=== PATIENT | male | born 1940 | race Caucasian/White ===

== ENCOUNTER 2016-02-18 11:23 | Inpatient (IN) | payer OTHER ==
[2016-02-18 11:50] VITALS: BMI 44.4
--- NOTE | 2016-02-18 12:11 | PDOC ---
History of Present Illness - General History Source: Patient, Spouse Exam Limitations: No Limitations - History of Present Illness Initial Comments: 02/18/16 12:57 <Yulisa Harvey - Last Filed: 02/18/16 14:10> - General History Source: Patient Exam Limitations: No Limitations - History of Present Illness Initial Comments: The patient is a 75-year-old man, accompanied by , with a significant past medical history of hypertension, hypercholesterolemia, coronary artery disease s /p stents x2, COPD (on 2L at home) and CHF who presents to the emergency department via walk-in with complaints of increasing shortness of breath for 3 days. No fever, chills, generalized weakness, cough. Patient is ambulatory with a cane and denies any dyspnea on exertion. Patient reports he his 2L O2 helps alleviate his shortness of breath. No chest pain, headache,dizziness, lightheadedness, back pain. Patient also reports chronic leg swelling and pain. Patient notes that his swelling has been increasing. He admits his Lasix dosage has increased from 40 mg q.d to 40 mg q.a.m followed by an additional 20 mg at night. Patient admits non compliance with his nightly dose , as he tends to forget. Patient also reports foot pain. He is unable to describe the nature of the pain but states it is associated with his wound. Patients pain is exacerbated when walking. Patient reported compliance to the wound care center, as he went today and his dressing was changed. As per patients , she expresses concern as the patient's urine was noted to be dark brown last night. Patient denies any urinary symptoms. He denies abdominal pain,nausea, vomiting, diarrhea, hematochezia, melena. Allergies: Penicillin. Past Surgical History: Stent placement x2 (04/2015) Social History: Former smoker. He denies ETOH and recreational drug use. Primary Care Physician: Dr. Alejandro Sotomayor Shipping And Receiving Operator: Dr. Alejandro Sotomayor Quarry Boss: Dr. Herminio Ferrer <Rodrigo Paul - Last Filed: 02/18/16 18:50> - General Chief Complaint: Wound Infection Stated Complaint: WOUND CHECK,COPD Time Seen by Provider: 02/18/16 12:01 Past History <Yulisa Harvey - Last Filed: 02/18/16 14:10> - Past Medical History Anemia: Yes Asthma: No Cancer: No Cardiac Disorders: Yes (CAD - 2 cardiac stents placed 03/26/2015) CVA: No COPD: Yes (resp failure) CHF: Yes Dementia: No Diabetes: (unknown) GI Disorders: Yes (H/O mild GI bleed) Disorders: No HTN: Yes Hypercholesterolemia: Yes Liver Disease: No Seizures: No Thyroid Disease: No - Surgical History Abdominal Surgery: No Appendectomy: No Cardiac Surgery: Yes (2 cardiac stents) Cholecystectomy: No Lung Surgery: No Neurologic Surgery: No Orthopedic Surgery: No - Immunization History Immunization Up to Date: Yes - Psycho/Social/Smoking Cessation Hx Anxiety: No Suicidal Ideation: No Smoking Status: Yes Smoking History: Former smoker Have you smoked in the past 12 months: No Number of Cigarettes Smoked Daily: 0 If you are a former smoker, when did you quit?: 6 years Information on smoking cessation initiated: No 'Breaking Loose' booklet given: 04/01/15 Hx Alcohol Use: No Drug/Substance Use Hx: No Substance Use Type: None Hx Substance Use Treatment: No <Rodrigo Paul - Last Filed: 02/18/16 18:50> - Past Medical History Allergies/Adverse Reactions: Allergies Allergy/AdvReac Type Severity Reaction Status Date / Time Penicillins Allergy Verified 02/18/16 11:45 Home Medications: Ambulatory Orders Acetaminophen W/ Codeine #3 [Tylenol # 3 -] 1 tab PO Q6H PRN 02/18/16 Albuterol 0.083% Nebulizer Soni [Ventolin 0.083% Nebulizer Soln -] 1 amp NEB ASDIR PRN 02/18/16 Aspirin [Ecotrin] 81 mg PO DAILY 02/18/16 Duloxetine HCl 20 mg PO DAILY 02/18/16 Furosemide 20 mg PO HS 02/18/16 Furosemide 40 mg PO DAILY 02/18/16 Hydralazine HCl [Apresoline -] 50 mg PO HS 02/18/16 Prasugrel HCl [Effient] 10 mg PO DAILY 02/18/16 Prednisone 5 mg PO DAILY 02/18/16 Pregabalin [Lyrica] 25 mg PO DAILY 02/18/16 Review of Systems - Review of Systems Able to Perform ROS?: Yes Comments:: 02/18/16 12:57 <Yulisa Harvey - Last Filed: 02/18/16 14:10> - Review of Systems Able to Perform ROS?: Yes Comments:: CONSTITUTIONAL: No reported: Fever, Chills, Diaphoresis, Generalized Weakness, Malaise, Loss of Appetite HEENT: No reported: Rhinorrhea, Nasal Congestion, Throat Pain, Throat Swelling, Difficulty Swallowing, Mouth Swelling, Ear Pain, Eye Pain, Visual Changes CARDIOVASCULAR: No reported: Chest Pain, Syncope, Palpitations, Irregular Heart Rate, Lightheadedness, Peripheral Edema RESPIRATORY: Reported: +Shortness Of Breath. No reported: Cough, SOB with Exertion, Orthopnea , Wheezing, Stridor, Hemoptysis GASTROINTESTINAL: No reported: Abdominal pain, Abdominal Distension, Nausea, Vomiting, Diarrhea, Constipation, Melena, Hematochezia GENITOURINARY: Reported: +Dark Urine. No reported: Dysuria, Frequency, Urgency, Hesitancy, Flank Pain, Genital Pain MUSCULOSKELETAL: Reported: +Bialteral foot pain. +Bialtealy lower extremity swelling. No reported : Myalgia,Joint Swelling, Back pain, Neck Pain SKIN: Reported: +Bilateral Leg Wounds. No reported: Rash, Itching, Pallor HEMEATOLOGIC/IMMUNOLOGIC: No reported: Easy Bleeding, Easy Bruising, Lymphadenopathy, Frequent infections ENDOCRINE: No reported: Unexplained Weight Gain, Unexplained Weight Loss, Heat Intolerance , Cold Intolerance NEUROLOGIC: No reported: Headache, Focal Weakness, Paresthesias, Vertigo, Lightheadedness, Unsteady Gait, Seizure, Mental Status Changes, Incontinence PSYCHIATRIC: No reported: Anxiety, Depression <Rodrigo Paul - Last Filed: 02/18/16 18:50> *Physical Exam - Vital Signs Last Vital Signs Temp Pulse Resp BP Pulse Ox 97.6 F 74 18 146/70 92 L 02/18/16 11:46 02/18/16 11:46 02/18/16 11:46 02/18/16 11:46 02/18/16 11:46 - Physical Exam Comments: 02/18/16 12:57 <Yulisa Harvey - Last Filed: 02/18/16 14:10> - Vital Signs Last Vital Signs Temp Pulse Resp BP Pulse Ox 97.6 F 74 18 146/70 92 L 02/18/16 11:46 02/18/16 11:46 02/18/16 11:46 02/18/16 11:46 02/18/16 11:46 - Physical Exam Comments: GENERAL: The patient is awake, alert, and fully oriented, Nontoxic - in no acute distress. HEAD: Normocephalic, atraumatic. EYES: extraocular movements intact, sclera anicteric, conjunctiva clear. ENT: Normal voice. Dry mucous membranes. NECK: Normal range of motion, supple LUNGS: Distant breath sounds, mild wheezing bilaterally. No rhonchi, no rales. HEART: Regular rate and rhythm, without murmur, rub or gallop. ABDOMEN: Soft, nontender, normoactive bowel sounds. No guarding, no rebound.No CVA tenderness EXTREMITIES: Normal range of motion. b/l lymphedema with chronic changes, bilaterally in the lower extremities. no open wounds, but clear discharge b/l. NEUROLOGICAL: No facial assymetry, Normal speech, moving all 4 extremities spontnaouelys PSYCH: Normal mood, normal affect. SKIN: +No open wounds on the bilateral lower extremities. Warm, Dry, normal turgor <Rodrigo Paul - Last Filed: 02/18/16 18:50> Heart Score/ECG Review - ECG Impressions Comment:: 02/18/16 18:49 Twelve-lead EKG was performed and reviewed by me. There is normal sinus rhythm with a normal rate. Rate of 80 Incomplete right bundle-branch block <Rodrigo Paul - Last Filed: 02/18/16 18:50> ED Treatment Course - LABORATORY CBC & Chemistry Diagram: 02/18/16 13:00 02/18/16 13:00 - RADIOLOGY Radiograph Interpretation: 02/18/16 13:07 RAD/CHEST X-RAY PORTABLE Reviewed by Dr. Rodrigo Paul Interpreted by Dr. Alejandro Yanes IMPRESSION: Cardiomegaly partially accentuated by technique. No acute intrathoracic abnormality seen. <Yulisa Harvey - Last Filed: 02/18/16 14:10> - LABORATORY CBC & Chemistry Diagram: 02/18/16 13:00 02/18/16 13:00 <Rodrigo Paul - Last Filed: 02/18/16 18:50> Medical Decision Making - Medical Decision Making 02/18/16 14:[address] Alejandro Sotomayor. Immediate response. Case was discussed. He wished that Patient Support Representative, Dr. Melvin Johnson to be contact for consultation and patient to be admitted under Hospitalist Services. 02/18/16 14:11 <Yulisa Harvey - Last Filed: 02/18/16 14:10> - Medical Decision Making 02/18/16 12:23 75y M hx of COPD (2L of NC at home at [facility]), chronic lymphedema, hl, chronic leg ulcers sent to ED for evaluation of dark colored urine and increasing sob, leg swelling, the past few days without associated f/c, cp, incrased sputum production or increased o2 requirement on exam the pts pulm exam reveals mild diffuse wheezing leg c/w chronic lypmhedema, mild clear d/c no signs of infection will r/o renal pathology will ck ekg to r/ acs cxr to r/o pna will ck gas will give duoneb will ck ua, A portion of this note was documented by scribe services under my direction. I have reviewed the details of the note, within reason, and agree with the documentation with the following case summary and management plan written by me 02/18/16 14:17 pt in shi K elevated to 6.5 - will give hyperk coctail, including calcium case /dw dr. vasquez requests admission to hospitalist will admit to telemetry case d/w dr. johnson agree with mangement will place lilly - will hydrate as pt appears dry will continue to monitor 02/18/16 15:43 pt has increased wob - pt placed on Bipap will continue nebs will uprade the pt to ICU due to concern for fluid overload and brittle respiratory status case d/w OSTEOPATHIC MEDICINE TEACHER Bhanu - will admit under dr. del rio service. Case discussed in detail with admitting physician including history, physical exam and ancillary studies. Admitting physician has assumed care for the patient, will follow all pending diagnostics and will complete the evaluation and treatment. CRITICAL CARE DOCUMENTATION: I spent ~35 minutes of Critical Care time, excluding separately billable procedures, involving high complexity decision making to assess, manipulate and support vital system function(s) to treat single or multiple vital organ system failure and/or to prevent further life threatening deterioration of the patient' s condition. <Rodrigo Paul - Last Filed: 02/18/16 18:50> *DC/Admit/Observation/Transfer - Attestations Scribe Attestion: 02/18/16 12:57 Documentation prepared by Yulisa Havrey, acting as medical office representative for Rodrigo Paul MD, MD/DO. <Yulisa Harvey - Last Filed: 02/18/16 14:10> - Discharge Dispostion Admit: Yes <Rodrigo Paul - Last Filed: 02/18/16 18:50> Diagnosis at time of Disposition: COPD exacerbation, Hyperkalemia Acute kidney failure Qualifiers: Acute renal failure type: unspecified Qualified Code(s): N17.9 - Acute kidney failure, unspecified - Discharge Dispostion Condition at time of disposition: Critical - Referrals
[2016-02-18] MEDS ORDERED: ALBUTEROL SO4 2.5/IPRATROPIUM 0.5 INH SOL 3 ML VIAL.NEB. NEB ONE ×3 (12:19→14:13)
[2016-02-18 13:00] LABS: VENOUS BLOOD GAS HCO3 21.7 meq/L (22-29)
[2016-02-18 13:01] LABS: VENOUS PH 7.17 (7.31-7.41)
[2016-02-18 13:20] LABS: MCH 24.5 pg (25.7-33.7); MCHC 30.6 g/dl (32.0-35.9); MEAN PLT VOLUME 7.5 fl (7.5-11.1); PLATELET COUNT 235 K/MM3 (134-434); RDW 16.8 % (11.9-15.9); WHITE BLOOD COUNT 6.5 K/mm3 (4.0-10.0)
[2016-02-18 13:33] LABS: INR 1.12 (0.82-1.09); PROTHROMBIN TIME (PATIENT) 12.3 SEC (9.4-12.5)
[2016-02-18 13:35] LABS: ALBUMIN 3.2 g/dl (3.4-5.0); ANION GAP 9 (8-16); BILIRUBIN,TOTAL 0.2 mg/dL (0.2-1.0); CALCIUM 7.3 mg/dL (8.5-10.1); CO2 26 mmol/L (21-32); CREATININE 7.2 mg/dL (0.7-1.3); GLUCOSE,RANDOM 105 mg/dL (74-106); SGOT/AST 16 U/L (15-37); SGPT/ALT 22 U/L (12-78); TOT PROT 6.3 g/dl (6.4-8.2)
[2016-02-18] MEDS ORDERED: methylPREDNISolone NA SUCC 125 MG/2 ML VIAL IVPB ONE (13:37)
[2016-02-18 13:38] LABS: ALK PHOS 90 U/L (45-117); TROPONIN I < 0.02 ng/ml (0.015-0.045)
[2016-02-18] MEDS ORDERED: methylPREDNISolone NA SUCC 125 MG/2 ML VIAL ONE (13:46)
[2016-02-18] MEDS ORDERED: INSULIN REGULAR HUMAN 100 UNITS/ML *VIAL IVPUSH ONE ×2 (14:06→21:10)
[2016-02-18] MEDS ORDERED: SODIUM POLYSTYRENE SULFONATE 15 GM/60 ML BOTTLE PO ONE ×2 (14:06→21:12)
[2016-02-18] MEDS ORDERED: DEXTROSE 50%-WATER 50 ML VIAL IVPUSH ONE ×2 (14:06→21:11)
[2016-02-18] MEDS ORDERED: CALCIUM GLUCONATE 10% - 1,000 MG/10 ML VIAL IVPUSH ONE (14:07)
[2016-02-18] MEDS ORDERED: SODIUM BICARBONATE 4.2% 5 MEQ/10 ML DISP.SYRIN IVPUSH ONE ×2 (14:07→14:49)
[2016-02-18] MEDS ORDERED: SODIUM CHLORIDE 1,000 ML IV ONE (14:17)
[2016-02-18] MEDS ORDERED: CALCIUM CHLORIDE 1 GM/10 ML *DISP.SYRIN ONE ×2 (14:49→21:10)
[2016-02-18] MEDS ORDERED: DEXTROSE 50%-WATER 50 ML DISP.SYRIN ONE ×2 (14:49→21:09)
--- NOTE | 2016-02-18 14:49 | EKG ---
Test Reason : Blood Pressure : / mmHG Vent. Rate : 080 BPM Atrial Rate : 083 BPM P-R Int : 226 ms QRS Dur : 116 ms QT Int : 410 ms P-R-T Axes : 073 066 065 degrees QTc Int : 472 ms POOR DATA QUALITY, INTERPRETATION MAY BE ADVERSELY AFFECTED NORMAL SINUS RHYTHM WITH 1ST DEGREE A-V BLOCK INCOMPLETE RIGHT BUNDLE BRANCH BLOCK Confirmed by KELSEA MELENDEZ MD ([id number]) on 02/18/2016 2:49:24 PM Referred By: Overread By: KELSEA MELENDEZ MD
[2016-02-18] MEDS ORDERED: INSULIN REGULAR HUMAN 100 UNITS/ML *VIAL ONE (14:50)
[2016-02-18] MEDS ORDERED: SODIUM POLYSTYRENE SULFONATE 15 GM/60 ML BOTTLE ONE (14:50)
[2016-02-18] MEDS ORDERED: CALCIUM GLUCONATE 10% - 1,000 MG/10 ML VIAL ONE (14:51)
--- NOTE | 2016-02-18 15:20 | CONSULT ---
Consult - text type - Consultation Consultation Note: Renal Consult for Hyperkalemia and Acute Renal Failure This is a 75 year old Gentleman with PMhx of CKD Stage 3 (baseline Cr 1.9), Hx of Nephrolithiasis, Hypertension, COPD, CHF, PVD, Chronic LE lymph edema who was sent into the ED from wound care for increased lethargy and decreased urination for several days. Pt states that for the last 4->5 days he has been only voding a little bit and it was dark urine. Denies any hematuria. Denies any flank pain. No NSAID use. No recent contrast exposure. Was on diuretics at home. reports about 80lb weight gain over the past year that she atributes to water weight. No recent Abx use. Did not start any new medications recently. No [place], confusion, lethargry, nasuea, vomiting, diarrhea. Poor po intake for the past week. Denies any dysuria. In the ED noted to have BUN/Cr of 117/7.2 and K of 6.5 PMhx: as above Allergies: PCN Family Hx: NC Social Hx: Former smoker ROS: As per HPI, all other pertinent ros negative Home Meds: Medication Instructions Recorded Albuterol Sulfate Inhaler - 1 - 2 inh PO Q4H PRN 07/16/15 [Ventolin HFA Inhaler -] Aspirin [Ecotrin] 81 mg PO DAILY 07/16/15 Atorvastatin Ca [Lipitor] 80 mg PO HS 07/16/15 Budesonide/Formeterol Fumarate 2 inh PO DAILY 07/16/15 [SYMBICORT 160/4.5mcg -] Prednisone 10 mg PO DAILY 07/16/15 Tamsulosin HCl 0.4 mg PO DAILY 07/16/15 Torsemide 20 mg PO BID 07/16/15 Albuterol 0.083% Nebulizer Soni 1 amp NEB Q4H PRN #0 amp 07/20/15 [Ventolin 0.083% Nebulizer Soln -] Prasugrel Hydrochloride [Effient -] 10 mg PO DAILY tab 07/20/15 Tiotropium [place] [Spiriva] 1 puff IH DAILY inh 07/20/15 Cymbalta 20 mg PO DAILY 09/24/15 Torsemide [Demadex -] 40 mg PO DAILY 10/22/15 Acetaminophen W/ Codeine #3 1 tab PO Q6H #60 tablet MDD 4 01/28/16 [Tylenol # 3 -] Vital Signs Temperature 97.6 F 02/18/16 11:46 Pulse Rate 74 02/18/16 11:46 Respiratory Rate 18 02/18/16 11:46 Blood Pressure 146/70 02/18/16 11:46 O2 Sat by Pulse Oximetry (%) 92 L 02/18/16 11:46 Intake & Output 02/15/16 02/16/16 02/17/16 02/18/16 23:59 23:59 23:59 23:59 Weight 310 lb Gen: Mild distress from sob. awake and alert HEENT: NC/AT, Dry MM, No JVD, Neck supple CVS: RRR No M/R Lungs: Course BS lung bases Abd: Soft NT + Mild distension Ext: > 3+ LE Lymph edema, no cyanosis or clubbing Neuro: AAOx3, no focal defects : Mild Abd distension ? Bladder CBC, BMP 02/18/16 13:00 02/18/16 13:00 Laboratory Tests 02/18/16 02/18/16 13:00 13:00 VBG pH 7.17 L* D POC VBG pCO2 62.1 H* POC VBG pO2 41.0 H D Calcium 7.3 L Albumin 3.2 L A/P 75 year old Gentleman with PMhx of CKD Stage 3 (baseline Cr 1.9), Hx of Nephrolithiasis, Hypertension, COPD, CHF, PVD, Chronic LE lymph edema who was sent into the ED from wound care for increased lethargy and decreased urination for several days with KARLOS with BUN/Cr of 115/7.2 and K of 6.5 #Acute Renal Failure on CKD Etiology -Volume depletion vs. Normotensive ATN (diuretic -> intravascular depeltion leading to renal hypoperfusion) vs. Obstrutive Nephropathy (at level of prostate vs. Nephrolithiasis) vs. AIN Clifford for strict I and O Check UA, UPCR, Urine Eiosophils Give 1L NS bolous No overt uremia or metabolic acidosis to warrant emergent HD at this time Will manage hyperkalemia medically Dose all meds for Cr Cl less then 10 avoid contrast and nsaids will monitor renal function and k closely -> if not improvement in next 6-12 hours may need emergent HD hold diuretics for now #Hyperkalemia from Renal failure EKG showed 1st degree aV block -> need urgent management Medical management in the ED (Insulin/D50/Calcium Carbonate/Kayexalate) Give isotonic IVF Repeat K in 4 hours Tele monitoring #Anemia No acute indication for transfusion Check iron studies Check stool occult blood #Resp Acidosis/COPD ph converted from vbg is 7.22, CO2 is 57 Bipap for now repeat abg to monitor for improvement Pt with appropriate metabolic compensation for acute resp acidosis #Hx of HF no evidence of decompensation at this time monitor volume status with IVF Thank you Will follow Melvin Johnson DO
--- NOTE | 2016-02-18 16:31 | CONSULT ---
Consult Consult Specialty:: PULM/CCM Referred by:: ER Reason for Consultation:: Acute Respiratory Distress / Hyperkalemia - History of Present Illness Chief Complaint: SOB / Lethargy History of Present Illness: 75 F, O2 dependent COPD, OSAS intermittently on CPAP (settings are not known), Mobid obesity, CKD Stage 3 (baseline Cr 1.9), Nephrolithiasis, Hypertension, CHF , PVD, Chronic LE lymph edema, and PCI. Patient reports increasing Lasix dose last week. HI PO intake has also been very poor. Apparently his urine has been very concentrated. Apparently he has been more lethargic over the past few days. Presents to the ER with lethargy and acute respiratory distress requiring NIPPV. Noted to be in ARF with a K+ of 6.5. Non-specific EKG changes are noted. - History Source History Provided By: Patient, Medical Record Limitations to Obtaining History: Clinical Condition - Past Medical History GRANULAR OPERATOR: Yes: Peripheral Neuropathy Cardio/Vascular: Yes: CAD, CHF (diastolic), HTN, Hyperlipdemia Pulmonary: Yes: COPD, O2 Dependent, Sleep Apnea Renal/: Yes: Renal Inusuff, Renal Calculi Dermatology: Yes: Cellulitis (Cellulitis lower extremiites during patient's hospitalization in February) Additional Medical History: Obesity - Past Surgical History Past Surgical History: Yes: None - Alcohol/Substance Use Hx Alcohol Use: No History of Substance Use: reports: None - Smoking History Smoking history: Former smoker Have you smoked in the past 12 months: No Aproximately how many cigarettes per day: 0 If you are a former smoker, when did you quit?: 6 years - Social History ADL: Independent 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 History of Recent Travel: No Home Medications - Allergies Allergies/Adverse Reactions: Allergies Allergy/AdvReac Type Severity Reaction Status Date / Time Penicillins Allergy Verified 02/18/16 11:45 - Home Medications Home Medications: Ambulatory Orders Acetaminophen W/ Codeine #3 [Tylenol # 3 -] 1 tab PO Q6H PRN 02/18/16 Albuterol 0.083% Nebulizer Soni [Ventolin 0.083% Nebulizer Soln -] 1 amp NEB ASDIR PRN 02/18/16 Aspirin [Ecotrin] 81 mg PO DAILY 02/18/16 Duloxetine HCl 20 mg PO DAILY 02/18/16 Furosemide 20 mg PO HS 02/18/16 Furosemide 40 mg PO DAILY 02/18/16 Hydralazine HCl [Apresoline -] 50 mg PO HS 02/18/16 Prasugrel HCl [Effient] 10 mg PO DAILY 02/18/16 Prednisone 5 mg PO DAILY 02/18/16 Pregabalin [Lyrica] 25 mg PO DAILY 02/18/16 Family Disease History - Family Disease History Family Disease History: Other: Father (parkinson's disease) Review of Systems - Review of Systems Constitutional: reports: Lethargy, Loss of Appetite, Malaise, Weakness. denies : Chills, Fever, Night Sweats, Unintentional Wgt. Loss Eyes: reports: No Symptoms HENT: reports: No Symptoms Neck: reports: No Symptoms Cardiovascular: reports: Edema, Shortness of Breath. denies: Chest Pain, Palpitations Respiratory: reports: Cough, SOB, SOB on Exertion. denies: Hemoptysis, Orthopnea, Wheezing Gastrointestinal: reports: No Symptoms Genitourinary: denies: Dysuria, Flank Pain, Hematuria Breasts: reports: No Symptoms Reported Musculoskeletal: denies: Back Pain, Extremity Pain, Muscle Pain, Muscle Cramps, Muscle Weakness Integumentary: reports: Change in Color, Erythema, Rash, Wound Neurological: reports: Confusion. denies: Change in Speech, Dizziness, Parasthesia, Seizure, Syncope Endocrine: reports: No Symptoms Hematology/Lymphatic: reports: No Symptoms Psychiatric: reports: No Symptoms Physical Exam Vital Sings: Vital Signs Temperature 97.3 F L 02/18/16 15:57 Pulse Rate 92 H 02/18/16 15:57 Respiratory Rate 28 H 02/18/16 15:57 Blood Pressure 164/66 02/18/16 15:57 O2 Sat by Pulse Oximetry (%) 100 02/18/16 15:57 Constitutional: Yes: Mild Distress, Obese, Other (On NIPPV ) Eyes: Yes: Conjunctiva Clear, EOM Intact HENT: Yes: Atraumatic, Normocephalic Neck: Yes: Supple, Trachea Midline Cardiovascular: Yes: Tachycardia Respiratory: Yes: Cough, Diminished, Hyperresonant, Rhonchi, Tachypnea. No: Rales, Stridor, Wheezes ...Inspection: Yes: WNL ...Clubbing: No Gastrointestinal: Yes: Normal Bowel Sounds, Soft, Abdomen, Obese Renal/: Yes: Clifford Present Musculoskeletal: Yes: WNL Extremities: Yes: Erythema Peripheral Pulses WNL: Yes Integumentary: Yes: Erythema, Skin Tear, Venous Stasis Changes Neurological: Yes: Alert, Oriented ...Motor Strength: WNL Psychiatric: Yes: WNL, Alert, Oriented Imaging - Results Chest X-ray: Report Reviewed, Image Reviewed (Cardiomegaly / No acute process) Problem List - Problems (1) Acute kidney failure Code(s): N17.9 - ACUTE KIDNEY FAILURE, UNSPECIFIED Qualifiers: Acute renal failure type: unspecified Qualified Code(s): N17.9 - Acute kidney failure, unspecified (2) COPD exacerbation Code(s): J44.1 - CHRONIC OBSTRUCTIVE PULMONARY DISEASE W (ACUTE) EXACERBATION (3) Hyperkalemia Code(s): E87.5 - HYPERKALEMIA (4) Anxiety and depression Code(s): F41.9 - ANXIETY DISORDER, UNSPECIFIED F32.9 - MAJOR DEPRESSIVE DISORDER, SINGLE EPISODE, UNSPECIFIED (5) Aortic aneurysm, intrathoracic Code(s): I71.2 - THORACIC AORTIC ANEURYSM, WITHOUT RUPTURE (6) Arteriosclerotic heart disease (ASHD) Code(s): I25.10 - ATHSCL HEART DISEASE OF [place] CORONARY ARTERY W/O ANG PCTRS (7) CRI (chronic renal insufficiency) Code(s): N18.9 - CHRONIC KIDNEY DISEASE, UNSPECIFIED (8) Chronic kidney disease (CKD) Code(s): N18.9 - CHRONIC KIDNEY DISEASE, UNSPECIFIED Qualifiers: Chronic kidney disease stage: unspecified stage Qualified Code(s): N18.9 - Chronic kidney disease, unspecified (9) Diabetes Code(s): E11.9 - TYPE 2 DIABETES MELLITUS WITHOUT COMPLICATIONS Qualifiers: Diabetes mellitus type: type 2 Diabetes mellitus complication status: with kidney complications Diabetes mellitus complication detail: with chronic kidney disease (10) Diastolic CHF Code(s): I50.30 - UNSPECIFIED DIASTOLIC (CONGESTIVE) HEART FAILURE (11) History of coronary artery stent placement Code(s): Z95.5 - PRESENCE OF CORONARY ANGIOPLASTY IMPLANT AND GRAFT (12) Hyperlipidemia Code(s): E78.5 - HYPERLIPIDEMIA, UNSPECIFIED (13) Hypertension Code(s): I10 - ESSENTIAL (PRIMARY) HYPERTENSION (14) Non-alcoholic fatty liver disease Code(s): K76.0 - FATTY (CHANGE OF) LIVER, NOT ELSEWHERE CLASSIFIED (15) Noncompliance with CPAP treatment Code(s): Z91.14 - PATIENT'S OTHER NONCOMPLIANCE WITH MEDICATION REGIMEN (16) Obesities, morbid Code(s): E66.01 - MORBID (SEVERE) OBESITY DUE TO EXCESS CALORIES Qualifiers: Obesity type: with alveolar hypoventilation Qualified Code(s): E66.2 - Morbid (severe) obesity with alveolar hypoventilation Assessment/Plan PLAN: NIPPV support Aspiration precautions Treatment for acute Hyperkalemia has been given in the ER -> follow BMP Can use Albuterol to assist in intracellular K+ shift if needed IVF Clifford inserted Strict I&O BD TX Short course of medrol Follow CXR ICU monitoring Thank you. Dr Vasquez CCTime 35"
--- NOTE | 2016-02-18 17:04 | PN ---
Physical Exam: SUBJECTIVE: Patient seen and examined by me at bedside. Patient in respiratory distress with labored breathing on BIPAP. Patient's at bedside and explained that the patient has several medical conditions and has not followed up with his Certified Nursing Attendant since June 2015. She states patient has barely urinated in the last two days and when he urinates it was very dark. She also states he's been more lethargic and fatigued. Otherwise, patient denies chest pain, palpitations, nausea, vomiting. OBJECTIVE: Vital Signs Period Temp Pulse Resp BP Sys/Carmona Pulse Ox Last 24 Hr 97.3 F 92 28 164/66 99-100 GENERAL: The patient is awake, alert, fully oriented and in mild respiratory distress. NECK: Trachea midline, full range of motion, supple. LUNGS: Tachypneic on BIPAP. Rhonchi throughout lung bases with diminished breath sounds. HEART: Regular rate and rhythm, S1, S2 without murmur, rub or gallop. ABDOMEN: Obese, soft, nontender, mildly distended, normoactive bowel sounds, no guarding, no rebound, no hepatosplenomegaly, no masses. EXTREMITIES: 3+ bilateral lower extremity lymphedema with erythema. NEUROLOGICAL: Lethargic oriented and responds to verbal commands. Active Medications Generic Name Dose Route Start Last Admin Trade Name Freq PRN Reason Stop Dose Admin Albuterol Sulfate 1 amp 02/18/16 16:41 Ventolin 0.083% Nebulizer Soln - NEB Q4H PRN SHORT OF BREATH/WHEEZING Arformoterol Tartrate 1 amp 02/18/16 22:00 Brovana (Restricted To Pulmonology/Resp) - NEB BID LESLEE Methylprednisolone Sodium Succinate 60 mg 02/18/16 18:00 Solu-Medrol - IVPB Q8H-IV LESLEE ASSESSMENT/PLAN: Patient is a 75 year old male with a PMHx of CKD, Hypertension, COPD, CHF, PVD, Chronic LE lymph edema who presents for increased lethargy, oliguria, wound infection and sepsis. Patient admitted to the ICU for acute respiratory distress requiring NIPPV. Pulmonology Acute respiratory failure -Likely from Sepsis secondary to LE infection -Continue NIPPV support -Solumedrol 60mg IV Q8H -Continue Brovana BID -Continue Nebulizer Q4H PRN -Acute respiratory acidosis with metabolic compensation -CXR and ABG in the morning Acute on Chronic COPD -Continue Brovana -Continue Nebulizer Q4H PRN -CXR and ABG in the morning Nephrology Acute on Chronic Kidney Disease -Possibly from volume depletion vs. ATN vs. Obstructive Nephropathy -BUN/Cr 115/7.2 -Sodium Bicarbonate given in ED -Avoid nephrotoxic drugs -Monitor I&O's -Check urine lytes/UA -Trend BMP -Nephrology consult appreciated Hyperkalemia likely from Renal Failure -Found to have level of 6.5 -Non-specific EKG's. Normal Sinus Rhythm at 80BPM -ED administered Insulin/D50/Calcium Carbonate/Kayexalate -IV NS given in ED -Repeat BMP Cardiology Diastolic CHF -No signs of Acute CHF -Given a Bolus of IVNS -Light hydration if needed -Continue to monitor -Chest X-rays F/E/N -On no fluids -Hyperkalemia -NPO Visit type - Emergency Visit Emergency Visit: Yes ED Registration Date: 02/18/16 Care time: The patient presented to the Emergency Department on the above date and was hospitalized for further evaluation of their emergent condition. - New Patient This patient is new to me today: Yes Date on this admission: 02/21/16 - Critical Care Critical Care patient: Yes Total Critical Care Time (in minutes): 45 Critical Care Statement: The care of this patient involved high complexity decision making to prevent further life threatening deterioration of the patient 's condition and/or to evalute & treat vital organ system(s) failure or risk of failure.
--- NOTE | 2016-02-18 17:44 | PN ---
Progress Note (short form) - Note Progress Note: 75 year old male with history COPD, renal insufficiency, ASHD S/P stents, morbid obesity, JOY (refused sleep study)- uses BIPAP only infrequently- chronic edema; now admitted with increased lethargy and renal failure. Pt last seen a month ago in office. At that time lab work ordered but apparently never done. On exam pt lethargic on Bipap. Chest decreased breath sounds. Edema Imp: Renal failure- obstructive? volume depletion? ATN?-probably a combination of these Resp Failure COPD Hyperkalemia Pt being transferred to ICU. Case discussed with patient's .
[2016-02-18 18:06] LABS: ARTERIAL BLD GAS O2 SATURATION 96.3 % (90-98.9); ARTERIAL BLOOD GAS BASE EXCESS -8.7 meq/l (-2-2)
[2016-02-18 18:07] LABS: ALLENS TEST POSITIVE; ART PUNCT SITE RIGHT RADIAL; LPM/O2% 40; MECH. VENT. YES; PT. ON O2? YES; TYPE OF O2 BIPAP
[2016-02-18 18:08] LABS: ARTERIAL BLOOD GAS pH 7.14 (7.35-7.45); VENT RATE 18; VT/PRESS EPAP 5
--- NOTE | 2016-02-18 18:25 | PN ---
Physical Exam: SUBJECTIVE: Patient seen and examined OBJECTIVE: Vital Signs Period Temp Pulse Resp BP Sys/[place]ona Pulse Ox Last 24 Hr 97.3 F 92 28 164/66 98-100 GENERAL: The patient is awake, alert, and fully oriented, in no acute distress. HEAD: Normal with no signs of trauma. EYES: PERRL, extraocular movements intact, sclera anicteric, conjunctiva clear. No ptosis. ENT: Ears normal, nares patent, oropharynx clear without exudates, moist mucous membranes. NECK: Trachea midline, full range of motion, supple. LUNGS: Breath sounds equal, clear to auscultation bilaterally, no wheezes, no crackles, no accessory muscle use. HEART: Regular rate and rhythm, S1, S2 without murmur, rub or gallop. ABDOMEN: Soft, nontender, nondistended, normoactive bowel sounds, no guarding, no rebound, no hepatosplenomegaly, no masses. EXTREMITIES: 2+ pulses, warm, well-perfused, no edema. NEUROLOGICAL: Cranial nerves II through XII grossly intact. Normal speech, gait not observed. PSYCH: Normal mood, normal affect. SKIN: Warm, dry, normal turgor, no rashes or lesions noted Laboratory Results - last 24 hr 02/18/16 17:35 Puncture Site Right radial ABG pH 7.14 L* D ABG pCO2 at Pt Temp 61.6 H* D ABG pO2 at Pt Temp 110.0 H D ABG HCO3 20.0 L ABG O2 Sat (Measured) 96.3 ABG O2 Content 12.0 L ABG Base Excess -8.7 L Issac Test Positive O2 Delivery Device Bipap Oxygen Flow Rate 40 Vent Mode Ipap 10 Vent Rate 18 Mechanical Rate Yes Pressure Support Vent Epap 5 Active Medications Generic Name Dose Route Start Last Admin Trade Name Freq PRN Reason Stop Dose Admin Albuterol Sulfate 1 amp 02/18/16 16:41 Ventolin 0.083% Nebulizer Soln - NEB Q4H PRN SHORT OF BREATH/WHEEZING Arformoterol Tartrate 1 amp 02/18/16 22:00 Brovana (Restricted To Pulmonology/Resp) - NEB BID LESLEE Methylprednisolone Sodium Succinate 60 mg 02/18/16 18:00 Solu-Medrol - IVPB Q8H-IV LESLEE ASSESSMENT/PLAN:
[2016-02-18] MEDS: methylPREDNISolone NA SUCC 40 MG/1 ML VIAL IVPB SCH (18:29)
--- NOTE | 2016-02-18 18:29 | HP ---
CHIEF COMPLAINT: Lethargy and decreased UOP PCP: Dr. Sotomayor HISTORY OF PRESENT ILLNESS: 75 year-old man with a PMH of HTN, PVD, COPD, CKD (baseline Cr 1.9), nephrolithiasis, and chronic LE lymphedema. The patient was directed [facility] the [facility] for increased lethargy and decreased urination for several days. Patient stated that for the last 4 to 5 days he has been only voiding a little and it was dark urine. He denied hematuria and flank pain. He denied NSAID use or recent contrast exposure. He was on diuretics at home although his reported an 80lb weight gain over the past year which she attributes to water weight. Patient has had poor PO intake x 1 week. No n/v/d/ c. No f/s/c. ER course was notable for: (1) BUN/Cr 117/7.2; K 6.5 Recent Travel: No PAST MEDICAL HISTORY: Hypertension Peripheral vascular disease COPD Chronic kidney disease Neprholithiasis Chronic lower extremity lymphedema PAST SURGICAL HISTORY: None reported Social History: Smoking: former Alcohol: no Drugs: no Family History: non contributory Allergies Penicillins Allergy (Verified 02/18/16 11:45) HOME MEDICATIONS: Medication Instructions Recorded Acetaminophen W/ Codeine #3 1 tab PO Q6H PRN 02/18/16 [Tylenol # 3 -] Albuterol 0.083% Nebulizer Soni 1 amp NEB ASDIR PRN 02/18/16 [Ventolin 0.083% Nebulizer Soln -] Aspirin [Ecotrin] 81 mg PO DAILY 02/18/16 Duloxetine HCl 20 mg PO DAILY 02/18/16 Furosemide 20 mg PO HS 02/18/16 Furosemide 40 mg PO DAILY 02/18/16 Hydralazine HCl [Apresoline -] 50 mg PO HS 02/18/16 Prasugrel HCl [Effient] 10 mg PO DAILY 02/18/16 Prednisone 5 mg PO DAILY 02/18/16 Pregabalin [Lyrica] 25 mg PO DAILY 02/18/16 REVIEW OF SYSTEMS: Unable to obtain due to severity of illness PHYSICAL EXAMINATION SUBJECTIVE: Feels SOB Vital Signs - 24 hr 02/18/16 02/18/16 02/18/16 15:34 15:57 16:25 Temperature 97.3 F L Pulse Rate 92 H Respiratory 28 H Rate Blood Pressure 164/66 O2 Sat by Pulse 99 100 98 Oximetry (%) GENERAL: Somnolent but arousable, answers questions, on BIPAP HEAD: Normal with no signs of trauma. EYES: Pupils equal, round and reactive to light, extraocular movements intact, sclera anicteric, conjunctiva clear. No ptosis. EARS, NOSE, THROAT: Ears normal, nares patent, oropharynx clear without exudates. Moist mucous membranes. NECK: Normal range of motion, supple without lymphadenopathy, JVD, or masses. LUNGS: Anterior breath sounds CTA; no wheezes, and no crackles. No accessory muscle use. HEART: Regular rate and rhythm, normal S1 and S2 without murmur, rub or gallop. ABDOMEN: Soft, obese, nontender, not distended, normoactive bowel sounds MUSCULOSKELETAL: ROM not tested; no bony deformities or tenderness. No CVA tenderness. UPPER EXTREMITIES: 2+ pulses, warm, well-perfused. No cyanosis. No clubbing. Cap refill <2 seconds. No peripheral edema. LOWER EXTREMITIES: 2+ pulses, warm, well-perfused. 4+ edema, cobblestone appearance; erythematous; on RLE well-circumscribed area of induration just below the knee NEUROLOGICAL: Cranial nerves II-XII intact. Normal speech. Gait not observed. Laboratory Results - last 24 hr 02/18/16 17:35 Puncture Site Right radial ABG pH 7.14 L* D ABG pCO2 at Pt Temp 61.6 H* D ABG pO2 at Pt Temp 110.0 H D ABG HCO3 20.0 L ABG O2 Sat (Measured) 96.3 ABG O2 Content 12.0 L ABG Base Excess -8.7 L Issac Test Positive O2 Delivery Device Bipap Oxygen Flow Rate 40 Vent Mode Ipap 10 Vent Rate 18 Mechanical Rate Yes Pressure Support Vent Epap 5 ASSESSMENT/PLAN: 75 year-old man with a PMH of HTN, PVD, COPD, CKD (baseline Cr 1.9), nephrolithiasis, and chronic LE lymphedema. Admitted in acute renal failure. Acute on chronic renal failure --Cr 7.2, baseline 1.8 --anuric --IV fluids --may require HD --renal consult Hyperkalemia --K 6.5, given calcium, kayexelate, insulin, sodium bicarb in ED --repeat bmp Sepsis secondary to bilateral lower extremity cellulitis --although not charted, rectal temp 95 in this provider's presence, Darinel Mitcheller placed; RR 28; HR >90; meets sepsis criteria --likely secondary to LE cellulitis --CT LE ordered; physical exam suggestive of collection anterior LLE? --start aztreonam and clinda --ID following Hypertension --hold anti-hypertensives Peripheral vascular disease Hypercarbic respiratory failure --ABG 7/14/61/110/20/96% on 40% --on BIPAP COPD --solumedrol --albuterol nebs --Brovana Visit type - Emergency Visit Emergency Visit: Yes ED Registration Date: 02/18/16 Care time: The patient presented to the Emergency Department on the above date and was hospitalized for further evaluation of their emergent condition. - New Patient This patient is new to me today: Yes Date on this admission: 02/20/16 - Critical Care Critical Care patient: Yes Total Critical Care Time (in minutes): 60 Critical Care Statement: The care of this patient involved high complexity decision making to prevent further life threatening deterioration of the patient 's condition and/or to evalute & treat vital organ system(s) failure or risk of failure.
[2016-02-18] MEDS ORDERED: VANCOMYCIN 1,250 MG in DEXTROSE 5%-WATER - 250 ML IVPB ONE (19:06)
[2016-02-18] MEDS ORDERED: SODIUM CHLORIDE 1,000 ML IV STA (19:10)
[2016-02-18] MEDS ORDERED: SODIUM CHLORIDE 1,000 ML IV SCH (19:15)
[2016-02-18] MEDS ORDERED: PIPERACILLIN/TAZOB 3.375 GM/50 ML PRE-DOCKED IVPB SCH (19:15)
[2016-02-18 19:28] LABS: ARTERIAL BLD GAS O2 SATURATION 98.5 % (90-98.9); ARTERIAL BLOOD GAS BASE EXCESS -9.3 meq/l (-2-2); ARTERIAL BLOOD GAS HCO3 18.9 meq/L (22-26)
[2016-02-18 19:29] LABS: ALLENS TEST POSITIVE; ART PUNCT SITE LEFT RADIAL; LPM/O2% 40; PT. ON O2? YES; TYPE OF O2 BIPAP; VENT RATE 18; VT/PRESS EPAP 5
[2016-02-18 19:30] LABS: ARTERIAL BLOOD GAS pH 7.15 (7.35-7.45)
[2016-02-18] MEDS ORDERED: LEVOFLOXACIN 750 MG IVPB 150 ML IVPB ONE (20:00)
[2016-02-18] MEDS ORDERED: MEROPENEM 500 MG VIAL (RESTRICTED TO ID) IVPB SCH (20:00)
[2016-02-18 20:01] LABS: MCH 24.3 pg (25.7-33.7); MCHC 30.5 g/dl (32.0-35.9); MEAN CELL VOLUME 79.8 fl (80-96); MEAN PLT VOLUME 7.6 fl (7.5-11.1); PLATELET COUNT 248 K/MM3 (134-434); RDW 16.9 % (11.9-15.9)
[2016-02-18] MEDS: HEPARIN NA (PORCINE) 5,000 UNITS/ML 1ML VIAL SQ SCH (20:15)
[2016-02-18] MEDS: CLINDAMYCIN 600MG PREMIX IVPB 50 ML IVPB SCH (20:15)
[2016-02-18 20:20] LABS: URINE APPEARANCE SLCLOUDY; URINE BILIRUBIN NEGATIVE (NEGATIVE); URINE BLOOD NEGATIVE (NEGATIVE); URINE COLOR YELLOW; URINE GLUCOSE (UA) NEGATIVE (NEGATIVE); URINE KETONE NEGATIVE (NEGATIVE); URINE NITRITE NEGATIVE (NEGATIVE); URINE UROBILINOGEN NEGATIVE E.U./dl (0.2-1.0)
[2016-02-18 20:26] LABS: URINE LEUK ESTERASE TRACE (NEGATIVE); URINE PROTEIN 2+ (NEGATIVE)
[2016-02-18] MEDS: AZTREONAM 1 GM in DEXTROSE 5%-WATER - 50 ML IVPB SCH (20:30)
[2016-02-18 20:35] LABS: CREATININE 7.1 mg/dL (0.7-1.3)
[2016-02-18 20:37] LABS: CALCIUM OXALATE CRYSTALS RARE /hpf (NONE SEEN); GRANULAR CASTS 8 /lpf; URINE BACTERIA RARE /hpf (NONE SEEN); URINE HYALINE CAST 3 /lpf; URINE MUCUS RARE; URINE RBC 24 /hpf (0-3); URINE WBC 8 /hpf (3-5)
[2016-02-18 20:38] LABS: TROPONIN I < 0.02 ng/ml (0.015-0.045)
[2016-02-18] MEDS: PRASUGREL HCL 10 MG TAB PO SCH (20:45)
[2016-02-18] MEDS: PREGABALIN 25 MG CAPSULE PO SCH (20:45)
[2016-02-18] MEDS: ASPIRIN COATED 81 MG TABLET.EC PO SCH (20:45)
[2016-02-18] MEDS: DULoxetine HCL 20 MG CAPSULE.DR (FP) PO SCH (20:45)
[2016-02-18 20:58] LABS: CALCIUM 6.8 mg/dL (8.5-10.1)
[2016-02-18] MEDS ORDERED: LIDOCAINE HCL 1%, 10 MG/ML (50 mL VIAL) SQ ONE (21:07)
[2016-02-18] MEDS ORDERED: LIDOCAINE HCL 1%, 10 MG/ML (20ML VIAL) ONE (21:08)
[2016-02-18] MEDS ORDERED: SODIUM BICARBONATE 8.4% - 50 ML ONE (21:10)
[2016-02-18] MEDS ORDERED: CALCIUM GLUCONATE 10% - 1,000 MG/10 ML VIAL IVPB ONE (21:11)
[2016-02-18] MEDS: SODIUM BICARBONATE 8.4% 50 MEQ/50 ML VIAL IV SCH (21:15)
[2016-02-18] MEDS: MUPIROCIN 2% TOPICAL OINTMENT FOR DECOLONIZATION NS SCH (21:56)
[2016-02-18] MEDS: CHLORHEXIDINE GLUCONATE 4% CLEANSER FOR DECOLONIZATION TP SCH (21:56)
[2016-02-18] MEDS: ARFORMOTEROL TARTRATE 15 MCG/2 ML VIAL NEB SCH (22:55)
--- NOTE | 2016-02-18 23:13 | PROC ---
Central Line Insertion Indication: Other (Hemodialysis) Risks and Benefits Explained: Yes Consent on Chart: Yes Central Line: Dialysis Cath, Tri Lumen Anesthesia: 1% Lidocaine Sterile Technique: Yes Ultrasound Guided Assistance: Yes Position: Right Internal Jugular Post Insertion: Yes: Bilateral Breath Sounds Sterile Dressing Applied: Yes
[2016-02-18 23:15] LABS: SODIUM,RANDOM URINE 12 MMOL/L
[2016-02-18 23:23] LABS: CHLORIDE,RANDOM URINE < 10 MMOL/L
[2016-02-19] MEDS: SODIUM BICARBONATE 8.4% 50 MEQ/50 ML VIAL IV SCH (01:15)
[2016-02-19] MEDS: HEPARIN NA (PORCINE) 5,000 UNITS/ML 1ML VIAL SQ SCH ×3 (02:00→17:23)
[2016-02-19] MEDS ORDERED: MEROPENEM 500 MG VIAL (RESTRICTED TO ID) IVPB SCH (02:00)
[2016-02-19] MEDS: CLINDAMYCIN 600MG PREMIX IVPB 50 ML IVPB SCH ×3 (02:00→17:05)
[2016-02-19] MEDS: methylPREDNISolone NA SUCC 40 MG/1 ML VIAL IVPB SCH ×3 (02:00→17:05)
[2016-02-19] MEDS: AZTREONAM 1 GM in DEXTROSE 5%-WATER - 50 ML IVPB SCH ×3 (04:30→17:05)
[2016-02-19 06:21] LABS: MCH 24.5 pg (25.7-33.7); MCHC 30.7 g/dl (32.0-35.9); MEAN CELL VOLUME 79.6 fl (80-96); MEAN PLT VOLUME 7.7 fl (7.5-11.1); PLATELET COUNT 233 K/MM3 (134-434); WHITE BLOOD COUNT 5.9 K/mm3 (4.0-10.0)
[2016-02-19 06:52] LABS: ALBUMIN 2.8 g/dl (3.4-5.0); CREATININE 7.3 mg/dL (0.7-1.3); MAGNESIUM 2.9 mg/dL (1.8-2.4)
[2016-02-19 06:54] LABS: BILIRUBIN,TOTAL 0.3 mg/dL (0.2-1.0); TOT PROT 5.7 g/dl (6.4-8.2); TROPONIN I < 0.02 ng/ml (0.015-0.045)
[2016-02-19 07:37] LABS: CALCIUM 6.9 mg/dL (8.5-10.1); PHOSPHOROUS 9.1 mg/dL (2.5-4.9)
[2016-02-19] MEDS: MUPIROCIN 2% TOPICAL OINTMENT FOR DECOLONIZATION NS SCH ×2 (09:15→21:36)
[2016-02-19] MEDS ORDERED: PT OWN MED DRAWER 7, Y5N ONE ×2 (09:23→16:59)
[2016-02-19] MEDS: PRASUGREL HCL 10 MG TAB PO SCH (09:32)
[2016-02-19] MEDS: DULoxetine HCL 20 MG CAPSULE.DR (FP) PO SCH (09:32)
[2016-02-19] MEDS: PREGABALIN 25 MG CAPSULE PO SCH (09:32)
[2016-02-19] MEDS: ASPIRIN COATED 81 MG TABLET.EC PO SCH (09:32)
--- NOTE | 2016-02-19 09:44 | PN ---
Progress Note (short form) - Note Progress Note: PULM/CCM Pt seen and examined in ICU 24Hr: oliguric overnight, rising K/Cr Hyper K cocktail x 2 trialysis placed last night HD this am with 2.5L taken off resp status improved Active Medications Albuterol Sulfate (Ventolin 0.083% Nebulizer Soln -) 1 amp NEB Q4H PRN PRN Reason: SHORT OF BREATH/WHEEZING Arformoterol Tartrate (Brovana (Restricted To Pulmonology/Resp) -) 1 amp NEB BID LESLEE Last Admin: 02/18/16 22:55 Dose: 1 amp Aspirin (Ecotrin -) 81 mg PO DAILY LESLEE Last Admin: 02/19/16 09:32 Dose: 81 mg Chlorhexidine Gluconate (Hibiclens For Decolonization -) 1 applic TP HS [facility] Last Admin: 02/18/16 21:56 Dose: 1 applic Duloxetine HCl (Cymbalta -) 20 mg PO DAILY LESLEE Last Admin: 02/19/16 09:32 Dose: 20 mg Heparin Sodium (Porcine) (Heparin -) 5,000 unit SQ Q8H-IV LESLEE Last Admin: 02/19/16 09:26 Dose: 5,000 unit Sodium Chloride (Normal Saline -) 1,000 mls @ 125 mls/hr IV ASDIR LESLEE Last Admin: 02/18/16 19:15 Dose: 125 mls/hr Clindamycin Phosphate (Cleocin 600 Mg Premix Ivpb -) 50 mls @ 100 mls/hr IVPB Q8H-IV LESLEE Last Admin: 02/19/16 09:14 Dose: 100 mls/hr Aztreonam 1 gm/ Dextrose 50 mls @ 100 mls/hr IVPB Q8H-IV LESLEE Methylprednisolone Sodium Succinate (Solu-Medrol -) 60 mg IVPB Q8H-IV LESLEE Last Admin: 02/19/16 09:14 Dose: 60 mg Mupirocin (Bactroban Ointment (For Decolonization) -) 1 applic NS BID [facility] Stop: 02/23/16 21:59 Last Admin: 02/19/16 09:15 Dose: 1 applic Prasugrel (Effient -) 10 mg PO DAILY LESLEE Last Admin: 02/19/16 09:32 Dose: 10 mg Pregabalin (Lyrica -) 25 mg PO DAILY [facility] Last Admin: 02/19/16 09:32 Dose: 25 mg CBC, BMP 02/19/16 05:30 02/19/16 05:30 Vital Signs Temp 97.0 F L 02/19/16 08:00 Pulse 79 02/19/16 09:00 Resp 18 02/19/16 09:00 BP 145/65 02/19/16 09:00 Pulse Ox 92 L 02/19/16 08:00 Intake & Output 02/18/16 02/18/16 02/19/16 11:59 23:59 11:59 Intake Total 50 2500 Output Total 100 150 Balance -50 2350 Weight 140.614 kg 140.614 kg 148.007 kg Intake: IV 2000 Normal Saline - 1,000 ml 1000 @ 1000 mls/hr IV ASDIR STA Rx#:[id number] Normal Saline - 1,000 ml 1000 @ 125 mls/hr IV ASDIR LESLEE Rx#:[id number] IVPB 450 Oral 50 50 Output: Urine 100 150 Clifford 100 150 Other: Voiding Method Indwelling Catheter Indwelling Catheter Height 5 ft 10 in 5 ft 10 in Body Mass Index (BMI) 44.4 44.4 Weight Measurement Method Stated by Patient [facility] Weight Measurement Method Est/Stated by Patient Constitutional: Yes: Mild Distress, Obese, Other (On NIPPV ) Eyes: Yes: Conjunctiva Clear, EOM Intact HENT: Yes: Atraumatic, Normocephalic Neck: Yes: Supple, Trachea Midline Cardiovascular: Yes: Tachycardia Respiratory: Yes: Cough, Diminished, bibasilar rales, no wheezes ...Inspection: Yes: WNL ...Clubbing: No Gastrointestinal: Yes: Normal Bowel Sounds, Soft, Abdomen, Obese Renal/: Yes: Clifford Present, concentrated UOP Musculoskeletal: Yes: WNL Extremities: Yes: Erythema, chronic venous stasis, pitting edema Peripheral Pulses WNL: Yes Integumentary: Yes: Erythema, Skin Tear, Venous Stasis Changes Neurological: Yes: Alert, Oriented ...Motor Strength: WNL Psychiatric: Yes: WNL, Alert, Oriented Imaging - Results Chest X-ray: Report Reviewed, Image Reviewed (Cardiomegaly / No acute process) Problem List - Problems (1) Acute kidney failure Code(s): N17.9 - ACUTE KIDNEY FAILURE, UNSPECIFIED Qualifiers: Acute renal failure type: unspecified Qualified Code(s): N17.9 - Acute kidney failure, unspecified (2) COPD exacerbation Code(s): J44.1 - CHRONIC OBSTRUCTIVE PULMONARY DISEASE W (ACUTE) EXACERBATION (3) Hyperkalemia Code(s): E87.5 - HYPERKALEMIA (4) Anxiety and depression Code(s): F41.9 - ANXIETY DISORDER, UNSPECIFIED F32.9 - MAJOR DEPRESSIVE DISORDER, SINGLE EPISODE, UNSPECIFIED (5) Aortic aneurysm, intrathoracic Code(s): I71.2 - THORACIC AORTIC ANEURYSM, WITHOUT RUPTURE (6) Arteriosclerotic heart disease (ASHD) Code(s): I25.10 - ATHSCL HEART DISEASE OF [place] CORONARY ARTERY W/O ANG PCTRS (7) CRI (chronic renal insufficiency) Code(s): N18.9 - CHRONIC KIDNEY DISEASE, UNSPECIFIED (8) Chronic kidney disease (CKD) Code(s): N18.9 - CHRONIC KIDNEY DISEASE, UNSPECIFIED Qualifiers: Chronic kidney disease stage: unspecified stage Qualified Code(s): N18.9 - Chronic kidney disease, unspecified (9) Diabetes Code(s): E11.9 - TYPE 2 DIABETES MELLITUS WITHOUT COMPLICATIONS Qualifiers: Diabetes mellitus type: type 2 Diabetes mellitus complication status: with kidney complications Diabetes mellitus complication detail: with chronic kidney disease (10) Diastolic CHF Code(s): I50.30 - UNSPECIFIED DIASTOLIC (CONGESTIVE) HEART FAILURE (11) History of coronary artery stent placement Code(s): Z95.5 - PRESENCE OF CORONARY ANGIOPLASTY IMPLANT AND GRAFT (12) Hyperlipidemia Code(s): E78.5 - HYPERLIPIDEMIA, UNSPECIFIED (13) Hypertension Code(s): I10 - ESSENTIAL (PRIMARY) HYPERTENSION (14) Non-alcoholic fatty liver disease Code(s): K76.0 - FATTY (CHANGE OF) LIVER, NOT ELSEWHERE CLASSIFIED (15) Noncompliance with CPAP treatment Code(s): Z91.14 - PATIENT'S OTHER NONCOMPLIANCE WITH MEDICATION REGIMEN (16) Obesities, morbid Code(s): E66.01 - MORBID (SEVERE) OBESITY DUE TO EXCESS CALORIES Qualifiers: Obesity type: with alveolar hypoventilation Qualified Code(s): E66.2 - Morbid (severe) obesity with alveolar hypoventilation Assessment/Plan PLAN: NIPPV support as needed, will transition to NC post HD HD as per renal Follow UOP Strict I&O BD TX Short course of medrol, taper quickly abx for LE cellulitis ICU monitoring today, may need repeat HD tomorrow if high Fio2 requireemnts Manoj Narvaez ACNP [phone] [facility] Problem List - Problems (1) Acute kidney failure Code(s): N17.9 - ACUTE KIDNEY FAILURE, UNSPECIFIED Qualifiers: Acute renal failure type: unspecified Qualified Code(s): N17.9 - Acute kidney failure, unspecified (2) COPD exacerbation Code(s): J44.1 - CHRONIC OBSTRUCTIVE PULMONARY DISEASE W (ACUTE) EXACERBATION (3) Hyperkalemia Code(s): E87.5 - HYPERKALEMIA (4) Acute and chronic respiratory failure ([id number]) Code(s): J96.20 - ACUTE AND CHR RESP FAILURE, UNSP W HYPOXIA OR HYPERCAPNIA Qualifiers: Respiratory failure complication: hypoxia and hypercapnia Qualified Code(s): J96.21 - Acute and chronic respiratory failure with hypoxia (5) Acute exacerbation of COPD with asthma Code(s): J44.1 - CHRONIC OBSTRUCTIVE PULMONARY DISEASE W (ACUTE) EXACERBATION J45.901 - UNSPECIFIED ASTHMA WITH (ACUTE) EXACERBATION
[2016-02-19] MEDS ORDERED: AZTREONAM 1 GM in DEXTROSE 5%-WATER - 50 ML IVPB SCH (10:00)
[2016-02-19] MEDS: ARFORMOTEROL TARTRATE 15 MCG/2 ML VIAL NEB SCH ×2 (10:30→21:30)
--- NOTE | 2016-02-19 11:37 | PN ---
Progress Note (short form) - Note Progress Note: Renal Follow up for KARLOS Pt seen and examined in the ICU hyperkalemia failed to respond to medical management last night -> CAUSTIC MIXER this am UF 2.5L Pt without complaints Vital Signs Temperature 96.8 F L 02/19/16 10:00 Pulse Rate 72 02/19/16 10:35 Respiratory Rate 13 02/19/16 10:00 Blood Pressure 146/69 02/19/16 10:00 O2 Sat by Pulse Oximetry (%) 99 02/19/16 10:35 Intake & Output 02/16/16 02/17/16 02/18/16 02/19/16 23:59 23:59 23:59 23:59 Intake Total 50 2600 Output Total 100 150 Balance -50 2450 Weight 310 lb 326 lb 4.8 oz Gen: Mild distress from sob. awake and alert CVS: RRR No M/R Lungs: Course BS lung bases Abd: Soft NT + Mild distension Ext: > 3+ LE Lymph edema, no cyanosis or clubbing HD Access: Right IJ trialysis catheter CBC, BMP 02/19/16 05:30 02/19/16 05:30 Laboratory Tests 02/19/16 05:30 Calcium 6.9 L* Phosphorus 9.1 H* D Magnesium 2.9 H Albumin 2.8 L Current Medications Albuterol Sulfate (Ventolin 0.083% Nebulizer Soln -) 1 amp NEB Q4H PRN PRN Reason: SHORT OF BREATH/WHEEZING Arformoterol Tartrate (Brovana (Restricted To Pulmonology/Resp) -) 1 amp NEB BID [facility] Last Admin: 02/19/16 10:30 Dose: 1 amp Aspirin (Ecotrin -) 81 mg PO DAILY [facility] Last Admin: 02/19/16 09:32 Dose: 81 mg Chlorhexidine Gluconate (Hibiclens For Decolonization -) 1 applic TP HS LESLEE Last Admin: 02/18/16 21:56 Dose: 1 applic Duloxetine HCl (Cymbalta -) 20 mg PO DAILY [facility] Last Admin: 02/19/16 09:32 Dose: 20 mg Heparin Sodium (Porcine) (Heparin -) 5,000 unit SQ Q8H-IV LESLEE Last Admin: 02/19/16 09:26 Dose: 5,000 unit Sodium Chloride (Normal Saline -) 1,000 mls @ 125 mls/hr IV ASDIR LESLEE Last Admin: 02/18/16 19:15 Dose: 125 mls/hr Clindamycin Phosphate (Cleocin 600 Mg Premix Ivpb -) 50 mls @ 100 mls/hr IVPB Q8H-IV [facility] Last Admin: 02/19/16 09:14 Dose: 100 mls/hr Aztreonam 1 gm/ Dextrose 50 mls @ 100 mls/hr IVPB Q8H-IV [facility] Last Admin: 02/19/16 10:23 Dose: 100 mls/hr Methylprednisolone Sodium Succinate (Solu-Medrol -) 60 mg IVPB Q8H-IV [facility] Last Admin: 02/19/16 09:14 Dose: 60 mg Mupirocin (Bactroban Ointment (For Decolonization) -) 1 applic NS BID [facility] Stop: 02/23/16 21:59 Last Admin: 02/19/16 09:15 Dose: 1 applic Prasugrel (Effient -) 10 mg PO DAILY [facility] Last Admin: 02/19/16 09:32 Dose: 10 mg Pregabalin (Lyrica -) 25 mg PO DAILY [facility] Last Admin: 02/19/16 09:32 Dose: 25 mg A/P 75 year old Gentleman with PMhx of CKD Stage 3 (baseline Cr 1.9), Hx of Nephrolithiasis, Hypertension, COPD, CHF, PVD, Chronic LE lymph edema who was sent into the ED from wound care for increased lethargy and decreased urination for several days with KARLOS with BUN/Cr of 115/7.2 and K of 6.5 #Acute Renal Failure on CKD Etiology -Volume depletion vs. Normotensive ATN (diuretic -> intravascular depeltion leading to renal hypoperfusion) FeNa was 0.2% s/p IVF yesterday w/o response WIll give Aggressive IVF today 2 -> 3L and monitor for improvement in urine output and BUN/Cr will likely need dialysis tomorrow as well if there is not significant improvement Dose all meds for Cr cl less then 10 #Hyperkalemia from Renal failure failed medical management -> required emergent HD #Anemia F/u iron studies Transfuse as per ICU protocol #Resp Acidosis/COPD Management as per CCM #Hx of HF no evidence of decompensation at this time monitor volume status with IVF #Hypocalcemia/Hyperphosphatemia Corrected Ca is 7.8 Start Calcium Acetate 667mg TID with meals Melvin Johnson DO
--- NOTE | 2016-02-19 11:51 | PN ---
Physical Exam: SUBJECTIVE: Patient seen and examined in ICU. Patient is a 75 year-old man with a PMHx of HTN, PVD, COPD, CKD (baseline Cr 1.9 ), nephrolithiasis, and chronic LE lymphedema, went from from wound care to ED for increased lethargy and decreased urination for several days. Patient stated that for the last 4 to 5 days he has been only voiding a little and it was dark urine. While in Ed.was found to have elevated potassium of 6.5. and was found to be oliguric. Patient was admitted to ICU. repeat potassium was found to be 7.2 in ICU was treated for Hyperkalemia, IJ line was palced for dialysis and this am with 2.5L taken off, with improvement with of his respiratory status. Also patient was short of breath, was placed on Bipap. OBJECTIVE: Vital Signs Temperature 96.8 F L 02/19/16 10:00 Pulse Rate 72 02/19/16 10:35 Respiratory Rate 13 02/19/16 10:00 Blood Pressure 146/69 02/19/16 10:00 O2 Sat by Pulse Oximetry (%) 99 02/19/16 10:35 GENERAL: The patient is awake, alert, and fully oriented, in no acute distress. HEAD: Normal with no signs of trauma. EYES: PERRL, extraocular movements intact, sclera anicteric, conjunctiva clear. No ptosis. ENT: Ears normal, nares patent, oropharynx clear without exudates, moist mucous membranes. NECK: Trachea midline, full range of motion, supple. IJ right neck area. LUNGS: decreased Breath sounds Bl, rales at the basis , no wheezes, no crackles , on Bipap. HEART: Regular rate and rhythm, S1, S2 without murmur, rub or gallop. ABDOMEN: Soft, nontender, nondistended, normoactive bowel sounds, no guarding, no rebound, no hepatosplenomegaly, no masses. EXTREMITIES: 2+ pulses, warm, well-perfused, no edema. NEUROLOGICAL: Cranial nerves II through XII grossly intact. Normal speech, gait not observed. PSYCH: Normal mood, normal affect. SKIN: Warm, dry, normal turgor, no rashes or lesions noted CBCD WBC 5.9 K/mm3 (4.0-10.0) 02/19/16 05:30 RBC 3.12 M/mm3 (4.00-5.60) L 02/19/16 05:30 Hgb 7.6 GM/dL (11.7-16.9) L D 02/19/16 05:30 Hct 24.8 % (35.4-49) L 02/19/16 05:30 MCV 79.6 fl (80-96) L 02/19/16 05:30 MCHC 30.7 g/dl (32.0-35.9) L 02/19/16 05:30 RDW 17.0 % (11.9-15.9) H 02/19/16 05:30 Plt Count 233 K/MM3 (134-434) 02/19/16 05:30 MPV 7.7 fl (7.5-11.1) 02/19/16 05:30 CMP Sodium 139 mmol/L (136-145) 02/19/16 05:30 Potassium 7.5 mmol/L (3.5-5.1) H* 02/19/16 05:30 Chloride 106 mmol/L (98-107) 02/19/16 05:30 Carbon Dioxide 23 mmol/L (21-32) 02/19/16 05:30 Anion Gap 10 (8-16) 02/19/16 05:30 BUN 128 mg/dL (7-18) H* 02/19/16 05:30 Creatinine 7.3 mg/dL (0.7-1.3) H 02/19/16 05:30 Creat Clearance w eGFR 7.39 (>60) 02/19/16 05:30 Random Glucose 184 mg/dL (74-106) H D 02/19/16 05:30 Calcium 6.9 mg/dL (8.5-10.1) L* 02/19/16 05:30 Total Bilirubin 0.3 mg/dL (0.2-1.0) D 02/19/16 05:30 AST 17 U/L (15-37) 02/19/16 05:30 ALT 28 U/L (12-78) D 02/19/16 05:30 Alkaline Phosphatase 90 U/L (45-117) 02/19/16 05:30 Total Protein 5.7 g/dl (6.4-8.2) L 02/19/16 05:30 Albumin 2.8 g/dl (3.4-5.0) L 02/19/16 05:30 CARDIAC ENZYMES Creatine Kinase 76 IU/L (39-308) 02/19/16 05:30 Troponin I < 0.02 ng/ml (0.015-0.045) 02/19/16 05:30 Medication Instructions Recorded Acetaminophen W/ Codeine #3 1 tab PO Q6H PRN 02/18/16 [Tylenol # 3 -] Albuterol 0.083% Nebulizer Soni 1 amp NEB ASDIR PRN 02/18/16 [Ventolin 0.083% Nebulizer Soln -] Aspirin [Ecotrin] 81 mg PO DAILY 02/18/16 Duloxetine HCl 20 mg PO DAILY 02/18/16 Furosemide 20 mg PO HS 02/18/16 Furosemide 40 mg PO DAILY 02/18/16 Hydralazine HCl [Apresoline -] 50 mg PO HS 02/18/16 Prasugrel HCl [Effient] 10 mg PO DAILY 02/18/16 Prednisone 5 mg PO DAILY 02/18/16 Pregabalin [Lyrica] 25 mg PO DAILY 02/18/16 Active Medications Generic Name Dose Route Start Last Admin Trade Name Freq PRN Reason Stop Dose Admin Albuterol Sulfate 1 amp 02/18/16 16:41 Ventolin 0.083% Nebulizer Soln - NEB Q4H PRN SHORT OF BREATH/WHEEZING Arformoterol Tartrate 1 amp 02/18/16 22:00 02/19/16 10:30 Brovana (Restricted To Pulmonology/Resp) - NEB 1 amp BID LESLEE Administration Aspirin 81 mg 02/18/16 20:45 02/19/16 09:32 Ecotrin - PO 81 mg DAILY LESLEE Administration Calcium Acetate 667 mg 02/19/16 12:00 Phoslo - PO TIDCM LESLEE Chlorhexidine Gluconate 1 applic 02/18/16 22:00 02/18/16 21:56 Hibiclens For Decolonization - TP 1 applic HS LESLEE Administration Duloxetine HCl 20 mg 02/18/16 20:45 02/19/16 09:32 Cymbalta - PO 20 mg DAILY LESLEE Administration Heparin Sodium (Porcine) 5,000 unit 02/18/16 20:15 02/19/16 09:26 Heparin - SQ 5,000 unit Q8H-IV LESLEE Administration Sodium Chloride 1,000 mls @ 125 mls/hr 02/18/16 19:15 02/18/16 19:15 Normal Saline - IV 125 mls/hr ASDIR LESLEE Administration Clindamycin Phosphate 50 mls @ 100 mls/hr 02/18/16 20:15 02/19/16 09:14 Cleocin 600 Mg Premix Ivpb - IVPB 100 mls/hr Q8H-IV LESLEE Administration Aztreonam 1 gm/ Dextrose 50 mls @ 100 mls/hr 02/19/16 10:00 02/19/16 10:23 IVPB 100 mls/hr Q8H-IV LESLEE Administration Methylprednisolone Sodium Succinate 60 mg 02/18/16 18:00 02/19/16 09:14 Solu-Medrol - IVPB 60 mg Q8H-IV LESLEE Administration Mupirocin 1 applic 02/18/16 22:00 02/19/16 09:15 Bactroban Ointment (For Decolonization) - NS 02/23/16 21:59 1 applic BID LESLEE Administration Prasugrel 10 mg 02/18/16 20:45 02/19/16 09:32 Effient - PO 10 mg DAILY LESLEE Administration Pregabalin 25 mg 02/18/16 20:45 02/19/16 09:32 Lyrica - PO 25 mg DAILY LESLEE Administration Medication Instructions Recorded Acetaminophen W/ Codeine #3 1 tab PO Q6H PRN 02/18/16 [Tylenol # 3 -] Albuterol 0.083% Nebulizer Soni 1 amp NEB ASDIR PRN 02/18/16 [Ventolin 0.083% Nebulizer Soln -] Aspirin [Ecotrin] 81 mg PO DAILY 02/18/16 Duloxetine HCl 20 mg PO DAILY 02/18/16 Furosemide 20 mg PO HS 02/18/16 Furosemide 40 mg PO DAILY 02/18/16 Hydralazine HCl [Apresoline -] 50 mg PO HS 02/18/16 Prasugrel HCl [Effient] 10 mg PO DAILY 02/18/16 Prednisone 5 mg PO DAILY 02/18/16 Pregabalin [Lyrica] 25 mg PO DAILY 02/18/16 Laboratory Tests 02/18/16 02/18/16 02/19/16 19:15 19:15 05:30 Potassium 7.2 H* 7.5 H* Creatinine 7.1 H 7.3 H Calcium 6.8 L* 6.9 L* Phosphorus 9.1 H* D Magnesium 2.9 H Troponin I < 0.02 02/19/16 05:30 Potassium Creatinine Calcium Phosphorus Magnesium Troponin I < 0.02 ASSESSMENT/PLAN: 75 year-old man with a PMHx of HTN, PVD, COPD, CKD (baseline Cr 1.9), nephrolithiasis, and chronic LE lymphedema. Admitted for acute renal failure. #Acute on chronic renal failure with (baseline 1.8 Cr) presented with 6.5-->7.2- ->7.5 was found to be anuric, IV fluids as per renal consult Patient is going for dialysis, s/p IJ line right side of the neck. # Acute Hyperkalemia 6.5-7.2-->7.5 given calcium, kayexelate, insulin, sodium bicarb in ED, will monitor potassium/bmp # Acute COPD exacerbation with hypercapnic respiratory failure s/p Bipap with ABG 714/61/110/20/96% on 40%, was on BIPAP and now patient is on 5liter NC # s/p Acute Sepsis due to bilateral lower extremity cellulitis with anarobic smell of lower extremities ; ID on the case for further care patient was found to be hypothermic on admission with rectal temp of 95 , s/ p Darinel Hugger placement, patient was started on aztreonam (allergic to Penicillin) and clindamycin. ID consult appreciated #Hypertension uncontrolled off BP meds for now. further managment per Dr Johnson #Peripheral vascular disease on Effient continue # Hx of Depression on Cymbalta Critical care time of 35 minutes Visit type - Emergency Visit Emergency Visit: Yes ED Registration Date: 02/18/16 Care time: The patient presented to the Emergency Department on the above date and was hospitalized for further evaluation of their emergent condition. - New Patient This patient is new to me today: Yes Date on this admission: 02/19/16 - Critical Care Critical Care patient: Yes Total Critical Care Time (in minutes): 35 Critical Care Statement: The care of this patient involved high complexity decision making to prevent further life threatening deterioration of the patient 's condition and/or to evalute & treat vital organ system(s) failure or risk of failure.
[2016-02-19] MEDS: CALCIUM ACETATE 667 MG CAPSULE (FP) PO SCH ×2 (11:52→17:24)
[2016-02-19 11:57] LABS: ANISOCYTOSIS 2+; HYPOCHROMIA 2+; MICROCYTOSIS 1+; PLATELET COMMENT2 NO CLOTTING DETECTED; PLATELET COMMENT3 MOD LARGE PLTS; PLATELET ESTIMATE ADEQUATE (NORMAL); POIKILOCYTOSIS 2+; POLYCHROMASIA 2+
[2016-02-19] MEDS: SODIUM CHLORIDE 1,000 ML IV SCH (12:00)
--- NOTE | 2016-02-19 13:21 | CONSULT ---
Consult Consult Specialty:: infectious diseases Reason for Consultation:: bilateral cellulitis of the leg - History of Present Illness Chief Complaint: not feeling well History of Present Illness: This patient who is well known to me who has multiple appointments for coming to my office and his history is as follows This is a 74y M hx of copd, O2 dependent,HTN,HDL, CHF, PVD, chronic lower ext edema,HDL,obesity , anemia, came to the hospital because of the following . The patient was directed [facility] the [facility] for increased lethargy and decreased urination for several days. Patient stated that for the last 4 to 5 days he has been only voiding a little and it was dark urine. He denied hematuria and flank pain. He denied NSAID use or recent contrast exposure. He was on diuretics at home although his reported an 80lb weight gain over the past year which she attributes to water weight. Patient has had poor PO intake x 1 week. No n/v/d/c. No f/s/c. patient was evaluated by the nephrology and they are following him - History Source History Provided By: Patient, Medical Record Limitations to Obtaining History: Clinical Condition - Past Medical History SUPPORT SERVICES MANAGER: Yes: Peripheral Neuropathy Cardio/Vascular: Yes: CAD, CHF (diastolic), HTN, Hyperlipdemia Pulmonary: Yes: COPD, O2 Dependent, Sleep Apnea Renal/: Yes: Renal Inusuff, Renal Calculi Dermatology: Yes: Cellulitis (Cellulitis lower extremiites during patient's hospitalization in February) Additional Medical History: Obesity - Past Surgical History Past Surgical History: Yes: None - Alcohol/Substance Use Hx Alcohol Use: No History of Substance Use: reports: None - Smoking History Smoking history: Former smoker Have you smoked in the past 12 months: No Aproximately how many cigarettes per day: 0 If you are a former smoker, when did you quit?: 6 years - Social History ADL: Independent 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 History of Recent Travel: No Home Medications - Allergies Allergies/Adverse Reactions: Allergies Allergy/AdvReac Type Severity Reaction Status Date / Time Penicillins Allergy Verified 02/18/16 11:45 - Home Medications Home Medications: Ambulatory Orders Acetaminophen W/ Codeine #3 [Tylenol # 3 -] 1 tab PO Q6H PRN 02/18/16 Albuterol 0.083% Nebulizer Soni [Ventolin 0.083% Nebulizer Soln -] 1 amp NEB ASDIR PRN 02/18/16 Aspirin [Ecotrin] 81 mg PO DAILY 02/18/16 Duloxetine HCl 20 mg PO DAILY 02/18/16 Furosemide 20 mg PO HS 02/18/16 Furosemide 40 mg PO DAILY 02/18/16 Hydralazine HCl [Apresoline -] 50 mg PO HS 02/18/16 Prasugrel HCl [Effient] 10 mg PO DAILY 02/18/16 Prednisone 5 mg PO DAILY 02/18/16 Pregabalin [Lyrica] 25 mg PO DAILY 02/18/16 Family Disease History - Family Disease History Family Disease History: Other: Father (parkinson's disease) Review of Systems - Review of Systems Constitutional: reports: Lethargy, Loss of Appetite Eyes: reports: No Symptoms Neck: reports: No Symptoms Cardiovascular: reports: No Symptoms Respiratory: reports: No Symptoms Gastrointestinal: reports: No Symptoms Genitourinary: reports: No Symptoms Musculoskeletal: reports: Muscle Pain, Other Integumentary: reports: Erythema, Wound Neurological: reports: No Symptoms Hematology/Lymphatic: reports: No Symptoms Psychiatric: reports: No Symptoms Physical Exam Vital Signs: Vital Signs Temperature 97.7 F 02/19/16 12:00 Pulse Rate 64 02/19/16 12:00 Respiratory Rate 14 02/19/16 12:00 Blood Pressure 135/60 02/19/16 12:00 O2 Sat by Pulse Oximetry (%) 99 02/19/16 10:35 Constitutional: Yes: Well Nourished, Obese Eyes: Yes: Conjunctiva Clear HENT: Yes: Atraumatic Neck: Yes: Supple Cardiovascular: Yes: Regular Rate and Rhythm Respiratory: Yes: Regular, On BiPap, On Nasal O2, Poor Air Entry Gastrointestinal: Yes: Normal Bowel Sounds, Soft Musculoskeletal: Yes: Other Extremities: Yes: Erythema (bilateral foul smell chronic lymphedema no open wounds some drainage from the leg from left post leg) Neurological: Yes: Alert, Oriented Psychiatric: Yes: Alert Labs: CBC, BMP 02/19/16 05:30 02/19/16 05:30 Imaging - Results Chest X-ray: Report Reviewed, Image Reviewed X-ray: Report Reviewed, Image Reviewed Assessment/Plan 75 year-old man with a PMH of HTN, PVD, COPD, CKD (baseline Cr 1.9), nephrolithiasis, and chronic LE lymphedema. Admitted in acute renal failure. Acute on chronic renal failure Hyperkalemia Sepsis s Hypertension Peripheral vascular disease Hypercarbic respiratory failure COPD bilateral cellulitis of the legs plan patient on abx will continue abx patient has some skin break down on the right heel pressure of of the heel
[2016-02-19] MEDS: ALBUTEROL SO4 0.083% IH SOL 2.5 MG/3 ML VIAL.NEB. NEB PRN (19:12)
[2016-02-19 19:54] LABS: CREATININE 6.2 mg/dL (0.7-1.3)
[2016-02-19 19:56] LABS: CALCIUM 6.3 mg/dL (8.5-10.1)
[2016-02-19] MEDS ORDERED: SODIUM POLYSTYRENE SULFONATE 15 GM/60 ML BOTTLE ONE (20:20)
[2016-02-19] MEDS ORDERED: CALCIUM CHLORIDE 1 GM/10 ML *DISP.SYRIN IVPUSH ONE (21:16)
[2016-02-19] MEDS ORDERED: FUROSEMIDE 100 MG/10 ML INJECTABLE VIAL IVPB ONE (21:18)
[2016-02-19] MEDS ORDERED: CALCIUM GLUCONATE 10% - 1,000 MG/10 ML VIAL ONE (21:27)
[2016-02-19] MEDS ORDERED: FUROSEMIDE 100 MG/10 ML INJECTABLE VIAL ONE (21:27)
[2016-02-19] MEDS: CHLORHEXIDINE GLUCONATE 4% CLEANSER FOR DECOLONIZATION TP SCH (21:36)
--- NOTE | 2016-02-19 23:02 | EKG ---
Test Reason : Blood Pressure : / mmHG Vent. Rate : 067 BPM Atrial Rate : 067 BPM P-R Int : 228 ms QRS Dur : 152 ms QT Int : 452 ms P-R-T Axes : 076 048 040 degrees QTc Int : 477 ms SINUS RHYTHM WITH 1ST DEGREE A-V BLOCK RIGHT BUNDLE BRANCH BLOCK ABNORMAL ECG WHEN COMPARED WITH ECG OF 18-FEB-2016 13:09, RIGHT BUNDLE BRANCH BLOCK HAS REPLACED INCOMPLETE RIGHT BUNDLE BRANCH BLOCK Confirmed by ATA ALLEN, RASTA ([id number]) on 02/19/2016 11:01:59 PM Referred By: GEORGE BOBO Overread By: RASTA BERUMEN MD
[2016-02-20] MEDS ORDERED: PT OWN MED DRAWER 7, Y5N ONE ×3 (01:24→13:08)
[2016-02-20] MEDS: CLINDAMYCIN 600MG PREMIX IVPB 50 ML IVPB SCH ×3 (01:27→18:12)
[2016-02-20] MEDS: methylPREDNISolone NA SUCC 40 MG/1 ML VIAL IVPB SCH (01:28)
[2016-02-20] MEDS: HEPARIN NA (PORCINE) 5,000 UNITS/ML 1ML VIAL SQ SCH ×3 (01:29→18:13)
[2016-02-20 05:40] LABS: BASOPHIL 0.1 % (0-2.0); MCH 24.5 pg (25.7-33.7); MCHC 31.3 g/dl (32.0-35.9); MEAN CELL VOLUME 78.2 fl (80-96); MEAN PLT VOLUME 7.4 fl (7.5-11.1); NEUTROPHILS 89.9 % (42.8-82.8); PLATELET COUNT 209 K/MM3 (134-434); RDW 16.6 % (11.9-15.9); WHITE BLOOD COUNT 5.9 K/mm3 (4.0-10.0)
[2016-02-20 06:16] LABS: ALBUMIN 2.8 g/dl (3.4-5.0); BILIRUBIN,TOTAL 0.3 mg/dL (0.2-1.0); MAGNESIUM 2.7 mg/dL (1.8-2.4); TOT PROT 5.9 g/dl (6.4-8.2)
[2016-02-20 06:24] LABS: CALCIUM 6.4 mg/dL (8.5-10.1); CREATININE 6.6 mg/dL (0.7-1.3)
[2016-02-20 06:25] LABS: PHOSPHOROUS 8.6 mg/dL (2.5-4.9)
--- NOTE | 2016-02-20 07:09 | PN ---
Progress Note (short form) - Note Progress Note: PULM/CRITICAL CARE PROGRESS NOTE: Pt seen and examined in ICU 24 HOUR EVENTS: -First session of HD - 2.5L of UF -Remained hyperK and hypoxic post-HD requiring NIPPV overnight, treated K with Kayexalate and Lasix, will get HD again this morning -Otherwise stable Current Medications Albuterol Sulfate (Ventolin 0.083% Nebulizer Soln -) 1 amp NEB Q4H PRN PRN Reason: SHORT OF BREATH/WHEEZING Last Admin: 02/19/16 19:12 Dose: 1 amp Arformoterol Tartrate (Brovana (Restricted To Pulmonology/Resp) -) 1 amp NEB BID LESLEE Last Admin: 02/19/16 21:30 Dose: 1 amp Aspirin (Ecotrin -) 81 mg PO DAILY LESLEE Last Admin: 02/19/16 09:32 Dose: 81 mg Calcium Acetate (Phoslo -) 667 mg PO TIDCM LESLEE Last Admin: 02/19/16 17:24 Dose: 667 mg Chlorhexidine Gluconate (Hibiclens For Decolonization -) 1 applic TP HS LESLEE Last Admin: 02/19/16 21:36 Dose: 1 applic Duloxetine HCl (Cymbalta -) 20 mg PO DAILY LESLEE Last Admin: 02/19/16 09:32 Dose: 20 mg Heparin Sodium (Porcine) (Heparin -) 5,000 unit SQ Q8H-IV LESLEE Last Admin: 02/20/16 01:29 Dose: 5,000 unit Clindamycin Phosphate (Cleocin 600 Mg Premix Ivpb -) 50 mls @ 100 mls/hr IVPB Q8H-IV LESLEE Last Admin: 02/20/16 01:27 Dose: 100 mls/hr Aztreonam 1 gm/ Dextrose 50 mls @ 100 mls/hr IVPB Q8H-IV LESLEE Last Admin: 02/19/16 17:05 Dose: 100 mls/hr Sodium Chloride (Normal Saline -) 1,000 mls @ 150 mls/hr IV ASDIR LESLEE Last Admin: 02/19/16 12:00 Dose: 150 mls/hr Methylprednisolone Sodium Succinate (Solu-Medrol -) 60 mg IVPB Q8H-IV LESLEE Last Admin: 02/20/16 01:28 Dose: 60 mg Mupirocin (Bactroban Ointment (For Decolonization) -) 1 applic NS BID [facility] Stop: 02/23/16 21:59 Last Admin: 02/19/16 21:36 Dose: 1 applic Prasugrel (Effient -) 10 mg PO DAILY [facility] Last Admin: 02/19/16 09:32 Dose: 10 mg Pregabalin (Lyrica -) 25 mg PO DAILY [facility] Last Admin: 02/19/16 09:32 Dose: 25 mg Vital Signs Temp 98.3 F 02/20/16 06:00 Pulse 67 02/20/16 06:00 Resp 15 02/20/16 06:00 BP 157/82 02/20/16 06:00 Pulse Ox 100 02/20/16 04:45 Intake & Output 02/19/16 02/20/16 02/20/16 18:59 06:59 18:59 Intake Total 1450 600 Output Total 300 Balance 1150 600 Weight 150.4 kg Intake: IV 900 Normal Saline - 1,000 ml 900 @ 150 mls/hr IV ASDIR [facility] Rx#:[id number] IVPB 250 200 Oral 300 400 Output: Urine 300 Clifford 300 Other: Voiding Method Indwelling Catheter Indwelling Catheter Weight Measurement Method Built in [facility] CBC, BMP 02/20/16 05:00 02/20/16 05:00 EXAM: Gen: comfortable on BiPAP, awake, alert HEENT: PERRL Lungs: crackles CV: RRR Abd: obese, soft, non-tender Ext: LE cellulitis, edema, warm Imaging - Results Chest X-ray: Report Reviewed, Image Reviewed (Cardiomegaly / No acute process) Assessment/Plan Renal Failure requiring HD Volume overload Hyperkalemia Cellulitis COPD CAD -NIPPV support as needed, will transition to OK post HD -HD as per renal - will get HD today -Volume removal with UF -Nebs -Steroids - can convert to Pred 40 for 5 more days -Abx for cellulitis -ASA/Effient -DVT PPx Continue to monitor in ICU, critically ill Mgiuel Pinedo Pulm/Critical Care [employer] [id number] [facility] Problem List - Problems (1) Acute kidney failure Code(s): N17.9 - ACUTE KIDNEY FAILURE, UNSPECIFIED Qualifiers: Acute renal failure type: unspecified Qualified Code(s): N17.9 - Acute kidney failure, unspecified (2) COPD exacerbation Code(s): J44.1 - CHRONIC OBSTRUCTIVE PULMONARY DISEASE W (ACUTE) EXACERBATION (3) Hyperkalemia Code(s): E87.5 - HYPERKALEMIA (4) Acute and chronic respiratory failure ([id number]) Code(s): J96.20 - ACUTE AND CHR RESP FAILURE, UNSP W HYPOXIA OR HYPERCAPNIA Qualifiers: Respiratory failure complication: hypoxia and hypercapnia Qualified Code(s): J96.21 - Acute and chronic respiratory failure with hypoxia (5) Acute exacerbation of COPD with asthma Code(s): J44.1 - CHRONIC OBSTRUCTIVE PULMONARY DISEASE W (ACUTE) EXACERBATION J45.901 - UNSPECIFIED ASTHMA WITH (ACUTE) EXACERBATION
[2016-02-20 07:51] LABS: ARTERIAL BLD GAS O2 SATURATION 98.6 % (90-98.9); ARTERIAL BLOOD GAS BASE EXCESS -4.7 meq/l (-2-2); ARTERIAL BLOOD GAS HCO3 22.7 meq/L (22-26)
[2016-02-20 07:52] LABS: ALLENS TEST POSITIVE; ART PUNCT SITE RIGHT RADIAL; LPM/O2% 50%; MECH. VENT. BIPAP; PT. ON O2? YES; TYPE OF O2 BIPAP; VT/PRESS IPAP 10/EPAP 5
[2016-02-20 07:53] LABS: ARTERIAL BLOOD GAS pH 7.21 (7.35-7.45); VENT RATE 10
[2016-02-20] MEDS: CALCIUM ACETATE 667 MG CAPSULE (FP) PO SCH ×3 (08:50→18:12)
[2016-02-20] MEDS: AZTREONAM 1 GM in DEXTROSE 5%-WATER - 50 ML IVPB SCH ×3 (09:24→19:33)
[2016-02-20] MEDS: DULoxetine HCL 20 MG CAPSULE.DR (FP) PO SCH (09:30)
[2016-02-20] MEDS: MUPIROCIN 2% TOPICAL OINTMENT FOR DECOLONIZATION NS SCH ×2 (09:30→21:15)
[2016-02-20] MEDS: ASPIRIN COATED 81 MG TABLET.EC PO SCH (09:30)
[2016-02-20] MEDS: predniSONE 20 MG TABLET (UD) PO SCH (09:30)
[2016-02-20] MEDS: PRASUGREL HCL 10 MG TAB PO SCH (09:30)
[2016-02-20] MEDS: PREGABALIN 25 MG CAPSULE PO SCH (09:30)
--- NOTE | 2016-02-20 10:13 | PN ---
Progress Note (short form) - Note Progress Note: Renal Follow up for KARLOS Pt seen and examined in the ICU awake and alert on BIPAP currently getting dialysis pt did not tolerate IVF yesterday, required lasix in the evening no acute complaints Vital Signs Temperature 98.3 F 02/20/16 06:00 Pulse Rate 69 02/20/16 08:00 Respiratory Rate 12 02/20/16 08:00 Blood Pressure 166/74 02/20/16 08:00 O2 Sat by Pulse Oximetry (%) 100 02/20/16 09:00 Vital Signs Temperature 98.3 F 02/20/16 06:00 Pulse Rate 69 02/20/16 08:00 Respiratory Rate 12 02/20/16 08:00 Blood Pressure 166/74 02/20/16 08:00 O2 Sat by Pulse Oximetry (%) 100 02/20/16 09:00 Gen: NAD CVS: RRR No M/R Lungs: Dec BS throughout the lung rey Abd: Soft NT + Mild distension Ext: > 3+ LE Lymph edema, no cyanosis or clubbing HD Access: Right IJ trialysis catheter CBC, BMP 02/20/16 05:00 02/20/16 05:00 Current Medications Albuterol Sulfate (Ventolin 0.083% Nebulizer Soln -) 1 amp NEB Q4H PRN PRN Reason: SHORT OF BREATH/WHEEZING Last Admin: 02/19/16 19:12 Dose: 1 amp Arformoterol Tartrate (Brovana (Restricted To Pulmonology/Resp) -) 1 amp NEB BID [facility] Last Admin: 02/19/16 21:30 Dose: 1 amp Aspirin (Ecotrin -) 81 mg PO DAILY [facility] Last Admin: 02/19/16 09:32 Dose: 81 mg Calcium Acetate (Phoslo -) 667 mg PO TIDCM [facility] Last Admin: 02/20/16 08:50 Dose: 667 mg Calcium Carbonate (Calcium Carbonate -) 1,300 mg PO BID [facility] Chlorhexidine Gluconate (Hibiclens For Decolonization -) 1 applic TP HS [facility] Last Admin: 02/19/16 21:36 Dose: 1 applic Duloxetine HCl (Cymbalta -) 20 mg PO DAILY [facility] Last Admin: 02/19/16 09:32 Dose: 20 mg Heparin Sodium (Porcine) (Heparin -) 5,000 unit SQ Q8H-IV [facility] Last Admin: 02/20/16 01:29 Dose: 5,000 unit Clindamycin Phosphate (Cleocin 600 Mg Premix Ivpb -) 50 mls @ 100 mls/hr IVPB Q8H-IV LESLEE Last Admin: 02/20/16 01:27 Dose: 100 mls/hr Aztreonam 1 gm/ Dextrose 50 mls @ 100 mls/hr IVPB Q8H-IV LESLEE Last Admin: 02/20/16 09:24 Dose: 100 mls/hr Sodium Chloride (Normal Saline -) 1,000 mls @ 150 mls/hr IV ASDIR LESLEE Last Admin: 02/19/16 12:00 Dose: 150 mls/hr Mupirocin (Bactroban Ointment (For Decolonization) -) 1 applic NS BID LESLEE Stop: 02/23/16 21:59 Last Admin: 02/19/16 21:36 Dose: 1 applic Paricalcitol (Zemplar -) 2 mcg IVPUSH ONCE ONE Stop: 02/20/16 10:05 Prasugrel (Effient -) 10 mg PO DAILY [facility] Last Admin: 02/19/16 09:32 Dose: 10 mg Prednisone (Deltasone -) 40 mg PO DAILY [facility] Pregabalin (Lyrica -) 25 mg PO DAILY [facility] Last Admin: 02/19/16 09:32 Dose: 25 mg A/P 75 year old Gentleman with PMhx of CKD Stage 3 (baseline Cr 1.9), Hx of Nephrolithiasis, Hypertension, COPD, CHF, PVD, Chronic LE lymph edema who was sent into the ED from wound care for increased lethargy and decreased urination for several days with KARLOS with BUN/Cr of 115/7.2 and K of 6.5 #Acute Renal Failure on CKD Pt failed to respond to IVF yesterday Currently getting 2nd HD session Will attempt forced diuresis with Lasix 120mg IVPB this afternoon Trend urine output Dose all meds for Cr cl less then 10 avoid IV contrast and nephrotoxins Will continue dialysis as needed based on clinical status and labs #Hyperkalemia from Renal failure using 2k bath with HD today low K diet #Anemia F/u iron studies Transfuse as per ICU protocol #Resp Acidosis/COPD Management as per CCM pt with incomplete metabolic compensation likely secondary to renal failure #Hx of HF no evidence of decompensation at this time monitor volume status with IVF #Hypocalcemia/Hyperphosphatemia s/p IV calcium cloride yesterday Give Calcium carbonate today Zemplar with HD Melvin Johnson DO
[2016-02-20] MEDS: ARFORMOTEROL TARTRATE 15 MCG/2 ML VIAL NEB SCH ×2 (10:45→21:44)
[2016-02-20] MEDS ORDERED: PARICALCITOL 5 MCG/ML VIAL IVPUSH ONE (11:15)
--- NOTE | 2016-02-20 13:00 | PN ---
Progress Note, Physician History of Present Illness: patient doing much better no complaints legs feel good still requiring bipap on dialysis - Current Medication List Current Medications: Active Medications Albuterol Sulfate (Ventolin 0.083% Nebulizer Soln -) 1 amp NEB Q4H PRN PRN Reason: SHORT OF BREATH/WHEEZING Last Admin: 02/19/16 19:12 Dose: 1 amp Arformoterol Tartrate (Brovana (Restricted To Pulmonology/Resp) -) 1 amp NEB BID [facility] Last Admin: 02/20/16 10:45 Dose: 1 amp Aspirin (Ecotrin -) 81 mg PO DAILY [facility] Last Admin: 02/20/16 09:30 Dose: 81 mg Calcium Acetate (Phoslo -) 667 mg PO TIDCM [facility] Last Admin: 02/20/16 08:50 Dose: 667 mg Calcium Carbonate (Calcium Carbonate -) 1,300 mg PO BID [facility] Chlorhexidine Gluconate (Hibiclens For Decolonization -) 1 applic TP HS [facility] Last Admin: 02/19/16 21:36 Dose: 1 applic Duloxetine HCl (Cymbalta -) 20 mg PO DAILY [facility] Last Admin: 02/20/16 09:30 Dose: 20 mg Furosemide (Lasix Injection -) 120 mg IVPB ONCE ONE Stop: 02/20/16 14:01 Heparin Sodium (Porcine) (Heparin -) 5,000 unit SQ Q8H-IV [facility] Last Admin: 02/20/16 09:30 Dose: 5,000 unit Clindamycin Phosphate (Cleocin 600 Mg Premix Ivpb -) 50 mls @ 100 mls/hr IVPB Q8H-IV [facility] Last Admin: 02/20/16 09:12 Dose: 100 mls/hr Aztreonam 1 gm/ Dextrose 50 mls @ 100 mls/hr IVPB Q8H-IV [facility] Last Admin: 02/20/16 09:24 Dose: 100 mls/hr Mupirocin (Bactroban Ointment (For Decolonization) -) 1 applic NS BID [facility] Stop: 02/23/16 21:59 Last Admin: 02/20/16 09:30 Dose: 1 applic Prasugrel (Effient -) 10 mg PO DAILY [facility] Last Admin: 02/20/16 09:30 Dose: 10 mg Prednisone (Deltasone -) 40 mg PO DAILY [facility] Last Admin: 02/20/16 09:30 Dose: 40 mg Pregabalin (Lyrica -) 25 mg PO DAILY [facility] Last Admin: 02/20/16 09:30 Dose: 25 mg - Objective Vital Signs: Vital Signs Temperature 97.4 F L 02/20/16 09:35 Pulse Rate 70 02/20/16 12:51 Respiratory Rate 18 02/20/16 12:51 Blood Pressure 135/58 02/20/16 12:51 O2 Sat by Pulse Oximetry (%) 100 02/20/16 10:45 Constitutional: Yes: No Distress, Calm Neck: Yes: Supple Cardiovascular: Yes: Regular Rate and Rhythm Respiratory: Yes: Regular, Poor Air Entry Gastrointestinal: Yes: Normal Bowel Sounds, Soft Musculoskeletal: Yes: Other Extremities: Yes: Other (swelling better no smell now) Neurological: Yes: Alert, Oriented Psychiatric: Yes: Alert Labs: CBC, BMP 02/20/16 05:00 02/20/16 05:00 INR, PTT INR 1.12 (0.82-1.09) 02/18/16 13:00 Assessment/Plan 75 year-old man with a PMH of HTN, PVD, COPD, CKD (baseline Cr 1.9), nephrolithiasis, and chronic LE lymphedema. Admitted in acute renal failure. Acute on chronic renal failure Hyperkalemia Sepsis s Hypertension Peripheral vascular disease Hypercarbic respiratory failure COPD bilateral cellulitis of the legs plan continue current abx rest as per primary monitor closely icu critical care cc time 40min
[2016-02-20] MEDS: CALCIUM CARBONATE 650 MG TABLET PO SCH ×2 (13:10→21:16)
--- NOTE | 2016-02-20 13:20 | PN ---
Teaching Attending Note Name of Resident: Freddie Strickland ATTENDING PHYSICIAN STATEMENT I saw and evaluated the patient. I reviewed the resident's note and discussed the case with the resident. I agree with the resident's findings and plan as documented. SUBJECTIVE: Patient had dialysis this morning. feeling better in ICU on NC, no nausea or vomiting, no shortness of breath, comfortable with no acute distress. OBJECTIVE: Vital Signs Temperature 97.4 F L 02/20/16 09:35 Pulse Rate 70 02/20/16 12:51 Respiratory Rate 18 02/20/16 12:51 Blood Pressure 135/58 02/20/16 12:51 O2 Sat by Pulse Oximetry (%) 100 02/20/16 10:45 GENERAL: The patient is awake, alert, and fully oriented, in no acute distress. HEAD: Normal with no signs of trauma. EYES: PERRL, extraocular movements intact, sclera anicteric, conjunctiva clear. No ptosis. ENT: Ears normal, on 3l NC , oropharynx clear without exudates, moist mucous membranes. NECK: Trachea midline, full range of motion, supple. LUNGS: decreased BS BL otherwise CTABL , no wheezes, no crackles, no accessory muscle use. HEART: Regular rate and rhythm, S1, S2 without murmur, rub or gallop. ABDOMEN: Soft, nontender, nondistended, normoactive bowel sounds, no guarding, no rebound, no hepatosplenomegaly, no masses. EXTREMITIES: 2+ pulses, warm, well-perfused, no edema. NEUROLOGICAL: Cranial nerves II through XII grossly intact. Normal speech, gait not observed. PSYCH: Normal mood, normal affect. SKIN: Warm, dry, normal turgor, no rashes or lesions noted CBCD WBC 5.9 K/mm3 (4.0-10.0) 02/20/16 05:00 RBC 3.06 M/mm3 (4.00-5.60) L 02/20/16 05:00 Hgb 7.5 GM/dL (11.7-16.9) L 02/20/16 05:00 Hct 24.0 % (35.4-49) L 02/20/16 05:00 MCV 78.2 fl (80-96) L 02/20/16 05:00 MCHC 31.3 g/dl (32.0-35.9) L 02/20/16 05:00 RDW 16.6 % (11.9-15.9) H 02/20/16 05:00 Plt Count 209 K/MM3 (134-434) 02/20/16 05:00 MPV 7.4 fl (7.5-11.1) L 02/20/16 05:00 CMP Sodium 143 mmol/L (136-145) 02/20/16 05:00 Potassium 6.3 mmol/L (3.5-5.1) H* 02/20/16 05:00 Chloride 107 mmol/L (98-107) 02/20/16 05:00 Carbon Dioxide 25 mmol/L (21-32) 02/20/16 05:00 Anion Gap 11 (8-16) 02/20/16 05:00 BUN 103 mg/dL (7-18) H 02/20/16 05:00 Creatinine 6.6 mg/dL (0.7-1.3) H 02/20/16 05:00 Creat Clearance w eGFR 8.30 (>60) 02/20/16 05:00 Random Glucose 162 mg/dL (74-106) H D 02/20/16 05:00 Calcium 6.4 mg/dL (8.5-10.1) L* 02/20/16 05:00 Total Bilirubin 0.3 mg/dL (0.2-1.0) 02/20/16 05:00 AST 21 U/L (15-37) D 02/20/16 05:00 ALT 31 U/L (12-78) 02/20/16 05:00 Alkaline Phosphatase 88 U/L (45-117) 02/20/16 05:00 Total Protein 5.9 g/dl (6.4-8.2) L 02/20/16 05:00 Albumin 2.8 g/dl (3.4-5.0) L 02/20/16 05:00 CARDIAC ENZYMES Creatine Kinase 76 IU/L (39-308) 02/19/16 05:30 Troponin I < 0.02 ng/ml (0.015-0.045) 02/19/16 21:50 Current Medications Generic Name Dose Route Start Last Admin Trade Name Freq PRN Reason Stop Dose Admin Albuterol Sulfate 1 amp 02/18/16 16:41 02/19/16 19:12 Ventolin 0.083% Nebulizer Soln - NEB 1 amp Q4H PRN Administration SHORT OF BREATH/WHEEZING Arformoterol Tartrate 1 amp 02/18/16 22:00 02/20/16 10:45 Brovana (Restricted To Pulmonology/Resp) - NEB 1 amp BID [facility] Administration Aspirin 81 mg 02/18/16 20:45 02/20/16 09:30 Ecotrin - PO 81 mg DAILY [facility] Administration Calcium Acetate 667 mg 02/19/16 12:00 02/20/16 13:10 Phoslo - PO 667 mg TIDCM [facility] Administration Calcium Carbonate 1,300 mg 02/20/16 13:00 02/20/16 13:10 Calcium Carbonate - PO 1,300 mg BID [facility] Administration Chlorhexidine Gluconate 1 applic 02/18/16 22:00 02/19/16 21:36 Hibiclens For Decolonization - TP 1 applic HS [facility] Administration Duloxetine HCl 20 mg 02/18/16 20:45 02/20/16 09:30 Cymbalta - PO 20 mg DAILY [facility] Administration Furosemide 120 mg 02/20/16 14:00 02/20/16 13:12 Lasix Injection - IVPB 02/20/16 14:01 120 mg ONCE ONE Administration Heparin Sodium (Porcine) 5,000 unit 02/18/16 20:15 02/20/16 09:30 Heparin - SQ 5,000 unit Q8H-IV [facility] Administration Clindamycin Phosphate 50 mls @ 100 mls/hr 02/18/16 20:15 02/20/16 09:12 Cleocin 600 Mg Premix Ivpb - IVPB 100 mls/hr Q8H-IV [facility] Administration Aztreonam 1 gm/ Dextrose 50 mls @ 100 mls/hr 02/19/16 10:00 02/20/16 09:24 IVPB 100 mls/hr Q8H-IV [facility] Administration Mupirocin 1 applic 02/18/16 22:00 02/20/16 09:30 Bactroban Ointment (For Decolonization) - NS 02/23/16 21:59 1 applic BID [facility] Administration Prasugrel 10 mg 02/18/16 20:45 02/20/16 09:30 Effient - PO 10 mg DAILY [facility] Administration Prednisone 40 mg 02/20/16 10:00 11/13/16 09:30 Deltasone - PO 40 mg DAILY [facility] Administration Pregabalin 25 mg 02/18/16 20:45 02/20/16 09:30 Lyrica - PO 25 mg DAILY [facility] Administration Medication Instructions Recorded Acetaminophen W/ Codeine #3 1 tab PO Q6H PRN 02/18/16 [Tylenol # 3 -] Albuterol 0.083% Nebulizer Soni 1 amp NEB ASDIR PRN 02/18/16 [Ventolin 0.083% Nebulizer Soln -] Aspirin [Ecotrin] 81 mg PO DAILY 02/18/16 Duloxetine HCl 20 mg PO DAILY 02/18/16 Furosemide 20 mg PO HS 02/18/16 Furosemide 40 mg PO DAILY 02/18/16 Hydralazine HCl [Apresoline -] 50 mg PO HS 02/18/16 Prasugrel HCl [Effient] 10 mg PO DAILY 02/18/16 Prednisone 5 mg PO DAILY 02/18/16 Pregabalin [Lyrica] 25 mg PO DAILY 02/18/16 Microbiology 02/18/16 18:10 Urine - Urine Clean Catch Urine Culture - Final NO GROWTH OBTAINED 02/18/16 19:15 Blood - Peripheral Venous Blood Culture - Preliminary NO GROWTH OBTAINED AFTER 24 HOURS, INCUBATION TO CONTINUE FOR 4 DAYS. 02/18/16 19:15 Blood - Peripheral Venous Blood Culture - Preliminary NO GROWTH OBTAINED AFTER 24 HOURS, INCUBATION TO CONTINUE FOR 4 DAYS. ASSESSMENT AND PLAN: 75 year-old man with a PMHx of HTN, PVD, COPD, CKD (baseline Cr 1.9), nephrolithiasis, and chronic LE lymphedema. Admitted for acute renal failure. 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 # Acute Hyperkalemia s/p HD again today this morning, K= 6.5-7.2-->7.5-->6.3 s/ p calcium, kayexelate, insulin, sodium bicarb in ED, continue to monitor potassium/bmp. # Acute COPD exacerbation with hypercapnic respiratory failure on 3l NC now , Bipap prn , patient is on 5liter NC # s/p Acute Sepsis due to bilateral lower extremity cellulitis of lower extremities( anaerobic smell) ; ID on the case for further care patient was found to be hypothermic on admission with rectal temp of 95 , s/ p Darinel Hugger placement, patient was started on aztreonam (allergic to Penicillin) and clindamycin for MRSA coverage. ID consult appreciated #Hypertension uncontrolled off BP meds for now. further managment per Dr Johnson #Peripheral vascular disease on Effient continue # Hx of Depression on Cymbalta DVT px: Heparin on HD now
[2016-02-20] MEDS ORDERED: FUROSEMIDE 100 MG/10 ML INJECTABLE VIAL IVPB ONE (14:00)
--- NOTE | 2016-02-20 14:49 | PN ---
Physical Exam: SUBJECTIVE: Patient seen and examined at bedside in ICU. Pt had dialysis earlier today and was using bipap at the time. Saw him again a couple hours later after dialysis and he was in bed comfortably breathing off bipap and on 3 L NC O2. He states he feels his breathing is better but otherwise he feels the same as yesterday. He has urinary urgency but does not want to wet the bed as he mentions but I assured him he has lilly in. He has never had this kind of respiratory distress before nor has he had issues with not being able to urinate. He denies N/V/F/C, CP, palpitations. OBJECTIVE: Vital Signs Temperature 97.4 F L 02/20/16 09:35 Pulse Rate 70 02/20/16 12:51 Respiratory Rate 18 02/20/16 12:51 Blood Pressure 135/58 02/20/16 12:51 O2 Sat by Pulse Oximetry (%) 100 02/20/16 10:45 GENERAL: The patient is awake, alert, and fully oriented, in no acute distress. HEAD: Normal with no signs of trauma. EYES: conjunctiva clear. No ptosis. ENT: moist mucous membranes. NECK: Trachea midline, full range of motion. LUNGS: Diminished breath sounds. Did not appreciate crackles or wheezing. HEART: Distant heart sounds. Regular rate and rhythm, S1, S2 without murmur, rub or gallop. ABDOMEN: Soft, obese, nontender, nondistended, normoactive bowel sounds, no guarding, no rebound, no hepatosplenomegaly, no masses. EXTREMITIES: 2+ pulses, warm, well-perfused, B/L cellulitic changes, B/L LE pitting edema. NEUROLOGICAL: Normal speech, gait not observed. PSYCH: Normal mood, normal affect. SKIN: Warm, dry, normal turgor. Laboratory Results - last 24 hr 02/19/16 02/19/16 02/20/16 19:15 21:50 05:00 WBC 5.9 RBC 3.06 L Hgb 7.5 L Hct 24.0 L MCV 78.2 L MCHC 31.3 L RDW 16.6 H Plt Count 209 MPV 7.4 L Neutrophils % 89.9 H Lymphocytes % 6.5 L D Monocytes % 3.5 L Eosinophils % 0.0 D Basophils % 0.1 Puncture Site ABG pH ABG pCO2 at Pt Temp ABG pO2 at Pt Temp ABG HCO3 ABG O2 Sat (Measured) ABG O2 Content ABG Base Excess Issac Test O2 Delivery Device Oxygen Flow Rate Vent Mode Vent Rate Mechanical Rate PEEP Pressure Support Vent Sodium 143 Potassium 6.0 H Chloride 108 H Carbon Dioxide 26 Anion Gap 9 BUN 97 H D Creatinine 6.2 H Creat Clearance w eGFR Random Glucose 247 H D Calcium 6.3 L* Phosphorus Magnesium Total Bilirubin AST ALT Alkaline Phosphatase Troponin I < 0.02 Total Protein Albumin 02/20/16 02/20/16 05:00 07:45 WBC RBC Hgb Hct MCV MCHC RDW Plt Count MPV Neutrophils % Lymphocytes % Monocytes % Eosinophils % Basophils % Puncture Site Right radial ABG pH 7.21 L* ABG pCO2 at Pt Temp 59.3 H ABG pO2 at Pt Temp 135.0 H ABG HCO3 22.7 ABG O2 Sat (Measured) 98.6 ABG O2 Content 10.7 L ABG Base Excess -4.7 L Issac Test Positive O2 Delivery Device Bipap Oxygen Flow Rate 50% Vent Mode S/t Vent Rate 10 Mechanical Rate Bipap PEEP 0.0 Pressure Support Vent Ipap 10/epap 5 Sodium 143 Potassium 6.3 H* Chloride 107 Carbon Dioxide 25 Anion Gap 11 BUN 103 H Creatinine 6.6 H Creat Clearance w eGFR 8.30 Random Glucose 162 H D Calcium 6.4 L* Phosphorus 8.6 H Magnesium 2.7 H Total Bilirubin 0.3 AST 21 D ALT 31 Alkaline Phosphatase 88 Troponin I Total Protein 5.9 L Albumin 2.8 L Microbiology 02/18/16 18:10 Urine - Urine Clean Catch Urine Culture - Final NO GROWTH OBTAINED 02/18/16 19:15 Blood - Peripheral Venous Blood Culture - Preliminary NO GROWTH OBTAINED AFTER 24 HOURS, INCUBATION TO CONTINUE FOR 4 DAYS. 02/18/16 19:15 Blood - Peripheral Venous Blood Culture - Preliminary NO GROWTH OBTAINED AFTER 24 HOURS, INCUBATION TO CONTINUE FOR 4 DAYS. CXR: image reviewed, report reviewed. Active Medications Generic Name Dose Route Start Last Admin Trade Name Freq PRN Reason Stop Dose Admin Albuterol Sulfate 1 amp 02/18/16 16:41 02/19/16 19:12 Ventolin 0.083% Nebulizer Soln - NEB 1 amp Q4H PRN Administration SHORT OF BREATH/WHEEZING Arformoterol Tartrate 1 amp 02/18/16 22:00 02/20/16 10:45 Brovana (Restricted To Pulmonology/Resp) - NEB 1 amp BID [facility] Administration Aspirin 81 mg 02/18/16 20:45 02/20/16 09:30 Ecotrin - PO 81 mg DAILY [facility] Administration Calcium Acetate 667 mg 02/19/16 12:00 02/20/16 13:10 Phoslo - PO 667 mg TIDCM [facility] Administration Calcium Carbonate 1,300 mg 02/20/16 13:00 02/20/16 13:10 Calcium Carbonate - PO 1,300 mg BID [facility] Administration Chlorhexidine Gluconate 1 applic 02/18/16 22:00 02/19/16 21:36 Hibiclens For Decolonization - TP 1 applic HS [facility] Administration Duloxetine HCl 20 mg 02/18/16 20:45 02/20/16 09:30 Cymbalta - PO 20 mg DAILY [facility] Administration Heparin Sodium (Porcine) 5,000 unit 02/18/16 20:15 02/20/16 09:30 Heparin - SQ 5,000 unit Q8H-IV [facility] Administration Clindamycin Phosphate 50 mls @ 100 mls/hr 02/18/16 20:15 02/20/16 09:12 Cleocin 600 Mg Premix Ivpb - IVPB 100 mls/hr Q8H-IV [facility] Administration Aztreonam 1 gm/ Dextrose 50 mls @ 100 mls/hr 02/19/16 10:00 02/20/16 09:24 IVPB 100 mls/hr Q8H-IV [facility] Administration Mupirocin 1 applic 02/18/16 22:00 02/20/16 09:30 Bactroban Ointment (For Decolonization) - NS 02/23/16 21:59 1 applic BID [facility] Administration Prasugrel 10 mg 02/18/16 20:45 02/20/16 09:30 Effient - PO 10 mg DAILY [facility] Administration Prednisone 40 mg 02/20/16 10:00 02/20/16 09:30 Deltasone - PO 40 mg DAILY [facility] Administration Pregabalin 25 mg 02/18/16 20:45 02/20/16 09:30 Lyrica - PO 25 mg DAILY [facility] Administration ASSESSMENT/PLAN: 75 year-old man with a PMH of HTN, PVD, COPD, CKD (baseline Cr 1.9), nephrolithiasis, and chronic LE lymphedema. Admitted for acute renal failure ( hyperkalemia) and respiratory distress. 1. Acute on chronic renal failure -BUN/Cr 103/6.6 (baseline 1.8) -anuric -HD as per nephrology 2. Acute Hyperkalemia -6.3 today -on HD -f/u bmp 3. Acute COPD exacerbation with hypercapnic respiratory failure -Bipap as needed -changed O2 from 5L to 3L today. Still oxygenating well. -ABG: (on bipap): 7.21/59.3/135 -CXR shows improved congestion compared to yesterday. -c/w prednisone 40 mg PO qd, brovana, albuterol PRN 4. Sepsis secondary to B/L lower extremity cellulitis -ID on board -c/w clindamycin 600 mg iv q8h -c/w aztreonam 1gm q8h 5. HTN -off anti-hypertensives for now 6. Hx of Depression -c/w cymbalta 7. CAD -prasugrel 10 mg PO qd 8. FEN -hyperkalemia - on HD -corrected Ca - 7.36 -hypocalcemia - calcium carbonate 9. Dispo: continue to monitor in ICU Problem List - Problems (1) Acute kidney failure Code(s): N17.9 - ACUTE KIDNEY FAILURE, UNSPECIFIED Qualifiers: Acute renal failure type: unspecified Qualified Code(s): N17.9 - Acute kidney failure, unspecified (2) COPD exacerbation Code(s): J44.1 - CHRONIC OBSTRUCTIVE PULMONARY DISEASE W (ACUTE) EXACERBATION (3) Hyperkalemia Code(s): E87.5 - HYPERKALEMIA (4) Acute and chronic respiratory failure ([id number]) Code(s): J96.20 - ACUTE AND CHR RESP FAILURE, UNSP W HYPOXIA OR HYPERCAPNIA Qualifiers: Respiratory failure complication: hypoxia and hypercapnia Qualified Code(s): J96.21 - Acute and chronic respiratory failure with hypoxia (5) Acute exacerbation of chronic obstructive pulmonary disease (COPD) Code(s): J44.1 - CHRONIC OBSTRUCTIVE PULMONARY DISEASE W (ACUTE) EXACERBATION (6) Acute on chronic diastolic (congestive) heart failure Code(s): I50.33 - ACUTE ON CHRONIC DIASTOLIC (CONGESTIVE) HEART FAILURE (7) Anxiety and depression Code(s): F41.9 - ANXIETY DISORDER, UNSPECIFIED F32.9 - MAJOR DEPRESSIVE DISORDER, SINGLE EPISODE, UNSPECIFIED (8) Cellulitis Code(s): L03.90 - CELLULITIS, UNSPECIFIED Qualifiers: Site of cellulitis of extremity: lower extremity (9) Chronic kidney disease (CKD) Code(s): N18.9 - CHRONIC KIDNEY DISEASE, UNSPECIFIED Qualifiers: Chronic kidney disease stage: unspecified stage Qualified Code(s): N18.9 - Chronic kidney disease, unspecified (10) Diastolic CHF Code(s): I50.30 - UNSPECIFIED DIASTOLIC (CONGESTIVE) HEART FAILURE (11) Hyperlipidemia Code(s): E78.5 - HYPERLIPIDEMIA, UNSPECIFIED (12) Hypertension Code(s): I10 - ESSENTIAL (PRIMARY) HYPERTENSION (13) Obesities, morbid Code(s): E66.01 - MORBID (SEVERE) OBESITY DUE TO EXCESS CALORIES Qualifiers: Obesity type: with alveolar hypoventilation Qualified Code(s): E66.2 - Morbid (severe) obesity with alveolar hypoventilation (14) Respiratory failure with hypoxia and hypercapnia Code(s): J96.91 - RESPIRATORY FAILURE, UNSPECIFIED WITH HYPOXIA J96.92 - RESPIRATORY FAILURE, UNSPECIFIED WITH HYPERCAPNIA Qualifiers: Chronicity: acute on chronic Qualified Code(s): J96.21 - Acute and chronic respiratory failure with hypoxia; J96.22 - Acute and chronic respiratory failure with hypercapnia (15) Shortness of breath Code(s): R06.02 - SHORTNESS OF BREATH Visit type - Emergency Visit Emergency Visit: No - New Patient This patient is new to me today: Yes Date on this admission: 02/20/16 - Critical Care Critical Care patient: Yes Total Critical Care Time (in minutes): 35 Critical Care Statement: The care of this patient involved high complexity decision making to prevent further life threatening deterioration of the patient 's condition and/or to evalute & treat vital organ system(s) failure or risk of failure.
[2016-02-20] MEDS: SODIUM CHLORIDE 1,000 ML IV SCH (20:14)
[2016-02-20] MEDS: CHLORHEXIDINE GLUCONATE 4% CLEANSER FOR DECOLONIZATION TP SCH (21:16)
[2016-02-21] MEDS: AZTREONAM 1 GM in DEXTROSE 5%-WATER - 50 ML IVPB SCH ×3 (01:16→19:39)
[2016-02-21] MEDS: HEPARIN NA (PORCINE) 5,000 UNITS/ML 1ML VIAL SQ SCH ×3 (01:17→17:40)
[2016-02-21] MEDS: CLINDAMYCIN 600MG PREMIX IVPB 50 ML IVPB SCH ×3 (02:01→17:40)
[2016-02-21 05:36] LABS: BASOPHIL 0.1 % (0-2.0); MCH 24.5 pg (25.7-33.7); MCHC 31.6 g/dl (32.0-35.9); MEAN CELL VOLUME 77.5 fl (80-96); MEAN PLT VOLUME 7.2 fl (7.5-11.1); PLATELET COUNT 206 K/MM3 (134-434); RDW 16.8 % (11.9-15.9); WHITE BLOOD COUNT 6.2 K/mm3 (4.0-10.0)
[2016-02-21 06:04] LABS: ALBUMIN 2.8 g/dl (3.4-5.0); BILIRUBIN,TOTAL 0.4 mg/dL (0.2-1.0); CREATININE 5.5 mg/dL (0.7-1.3); MAGNESIUM 2.4 mg/dL (1.8-2.4); PHOSPHOROUS 6.6 mg/dL (2.5-4.9); TOT PROT 5.6 g/dl (6.4-8.2)
[2016-02-21 06:30] LABS: CALCIUM 6.8 mg/dL (8.5-10.1)
[2016-02-21] MEDS ORDERED: PT OWN MED DRAWER 7, Y5N ONE ×2 (07:54→08:45)
[2016-02-21] MEDS: CALCIUM ACETATE 667 MG CAPSULE (FP) PO SCH ×3 (08:05→17:40)
--- NOTE | 2016-02-21 08:19 | PN ---
<Freddie Strickland - Last Filed: 02/21/16 08:11> Physical Exam: SUBJECTIVE: Patient seen and examined OBJECTIVE: Vital Signs Period Temp Pulse Resp BP Sys/Carmona Pulse Ox Last 24 Hr 97.4 F-98.2 F 70-99 15-22 132-176/40-75 96-100 GENERAL: The patient is awake, alert, and fully oriented, in no acute distress. HEAD: Normal with no signs of trauma. EYES: PERRL, extraocular movements intact, sclera anicteric, conjunctiva clear. No ptosis. ENT: Ears normal, nares patent, oropharynx clear without exudates, moist mucous membranes. NECK: Trachea midline, full range of motion, supple. LUNGS: Breath sounds equal, clear to auscultation bilaterally, no wheezes, no crackles, no accessory muscle use. HEART: Regular rate and rhythm, S1, S2 without murmur, rub or gallop. ABDOMEN: Soft, nontender, nondistended, normoactive bowel sounds, no guarding, no rebound, no hepatosplenomegaly, no masses. EXTREMITIES: 2+ pulses, warm, well-perfused, no edema. NEUROLOGICAL: Cranial nerves II through XII grossly intact. Normal speech, gait not observed. PSYCH: Normal mood, normal affect. SKIN: Warm, dry, normal turgor, no rashes or lesions noted Laboratory Results - last 24 hr 02/21/16 02/21/16 05:00 05:00 WBC 6.2 RBC 2.93 L Hgb 7.2 L Hct 22.7 L MCV 77.5 L MCHC 31.6 L RDW 16.8 H Plt Count 206 MPV 7.2 L Neutrophils % 77.0 Lymphocytes % 10.0 D Monocytes % 12.9 H D Eosinophils % 0.0 Basophils % 0.1 Sodium 143 Potassium 5.0 D Chloride 105 Carbon Dioxide 28 Anion Gap 10 BUN 84 H Creatinine 5.5 H Creat Clearance w eGFR 10.24 Random Glucose 108 H D Calcium 6.8 L* Phosphorus 6.6 H D Magnesium 2.4 Total Bilirubin 0.4 D AST 15 D ALT 34 Alkaline Phosphatase 75 Total Protein 5.6 L Albumin 2.8 L Active Medications Generic Name Dose Route Start Last Admin Trade Name Freq PRN Reason Stop Dose Admin Albuterol Sulfate 1 amp 02/18/16 16:41 02/19/16 19:12 Ventolin 0.083% Nebulizer Soln - NEB 1 amp Q4H PRN Administration SHORT OF BREATH/WHEEZING Arformoterol Tartrate 1 amp 02/18/16 22:00 02/20/16 21:44 Brovana (Restricted To Pulmonology/Resp) - NEB 1 amp BID LESLEE Administration Aspirin 81 mg 02/18/16 20:45 02/20/16 09:30 Ecotrin - PO 81 mg DAILY LESLEE Administration Calcium Acetate 667 mg 02/19/16 12:00 02/21/16 08:05 Phoslo - PO 667 mg TIDCM LESLEE Administration Calcium Carbonate 1,300 mg 02/20/16 13:00 02/20/16 21:16 Calcium Carbonate - PO 1,300 mg BID LESLEE Administration Chlorhexidine Gluconate 1 applic 02/18/16 22:00 02/20/16 21:16 Hibiclens For Decolonization - TP 1 applic HS LESLEE Administration Duloxetine HCl 20 mg 02/18/16 20:45 02/20/16 09:30 Cymbalta - PO 20 mg DAILY LESLEE Administration Heparin Sodium (Porcine) 5,000 unit 02/18/16 20:15 02/21/16 01:17 Heparin - SQ 5,000 unit Q8H-IV LESLEE Administration Clindamycin Phosphate 50 mls @ 100 mls/hr 02/18/16 20:15 02/21/16 02:01 Cleocin 600 Mg Premix Ivpb - IVPB 100 mls/hr Q8H-IV LESLEE Administration Aztreonam 1 gm/ Dextrose 50 mls @ 100 mls/hr 02/19/16 10:00 02/21/16 01:16 IVPB 100 mls/hr Q8H-IV LESLEE Administration Mupirocin 1 applic 02/18/16 22:00 02/20/16 21:15 Bactroban Ointment (For Decolonization) - NS 02/23/16 21:59 1 applic BID LESLEE Administration Prasugrel 10 mg 02/18/16 20:45 02/20/16 09:30 Effient - PO 10 mg DAILY LESLEE Administration Prednisone 40 mg 02/20/16 10:00 02/20/16 09:30 Deltasone - PO 40 mg DAILY LESLEE Administration Pregabalin 25 mg 02/18/16 20:45 02/20/16 09:30 Lyrica - PO 25 mg DAILY LESLEE Administration ASSESSMENT/PLAN: Problem List - Problems (1) Acute kidney failure Code(s): N17.9 - ACUTE KIDNEY FAILURE, UNSPECIFIED Qualifiers: Acute renal failure type: unspecified Qualified Code(s): N17.9 - Acute kidney failure, unspecified (2) COPD exacerbation Code(s): J44.1 - CHRONIC OBSTRUCTIVE PULMONARY DISEASE W (ACUTE) EXACERBATION (3) Hyperkalemia Code(s): E87.5 - HYPERKALEMIA (4) Acute and chronic respiratory failure (abssc-ib-gkzyevy) Code(s): J96.20 - ACUTE AND CHR RESP FAILURE, UNSP W HYPOXIA OR HYPERCAPNIA Qualifiers: Respiratory failure complication: hypoxia and hypercapnia Qualified Code(s): J96.21 - Acute and chronic respiratory failure with hypoxia (5) Acute exacerbation of chronic obstructive pulmonary disease (COPD) Code(s): J44.1 - CHRONIC OBSTRUCTIVE PULMONARY DISEASE W (ACUTE) EXACERBATION (6) Acute on chronic diastolic (congestive) heart failure Code(s): I50.33 - ACUTE ON CHRONIC DIASTOLIC (CONGESTIVE) HEART FAILURE (7) Anxiety and depression Code(s): F41.9 - ANXIETY DISORDER, UNSPECIFIED F32.9 - MAJOR DEPRESSIVE DISORDER, SINGLE EPISODE, UNSPECIFIED (8) Cellulitis Code(s): L03.90 - CELLULITIS, UNSPECIFIED Qualifiers: Site of cellulitis of extremity: lower extremity (9) Chronic kidney disease (CKD) Code(s): N18.9 - CHRONIC KIDNEY DISEASE, UNSPECIFIED Qualifiers: Chronic kidney disease stage: unspecified stage Qualified Code(s): N18.9 - Chronic kidney disease, unspecified (10) Diastolic CHF Code(s): I50.30 - UNSPECIFIED DIASTOLIC (CONGESTIVE) HEART FAILURE (11) Hyperlipidemia Code(s): E78.5 - HYPERLIPIDEMIA, UNSPECIFIED (12) Hypertension Code(s): I10 - ESSENTIAL (PRIMARY) HYPERTENSION (13) Obesities, morbid Code(s): E66.01 - MORBID (SEVERE) OBESITY DUE TO EXCESS CALORIES Qualifiers: Obesity type: with alveolar hypoventilation Qualified Code(s): E66.2 - Morbid (severe) obesity with alveolar hypoventilation (14) Respiratory failure with hypoxia and hypercapnia Code(s): J96.91 - RESPIRATORY FAILURE, UNSPECIFIED WITH HYPOXIA J96.92 - RESPIRATORY FAILURE, UNSPECIFIED WITH HYPERCAPNIA Qualifiers: Chronicity: acute on chronic Qualified Code(s): J96.21 - Acute and chronic respiratory failure with hypoxia; J96.22 - Acute and chronic respiratory failure with hypercapnia (15) Shortness of breath Code(s): R06.02 - SHORTNESS OF BREATH <Mindy Wade - Last Filed: 02/21/16 09:40> Physical Exam: SUBJECTIVE: Patient seen and examined by me at bedside. Patient currently on 5L NC and reports his breathing is much better. He offers no complaints and is eating breakfast. Otherwise, patient denies fever, chills, nausea, vomiting, chest pain, palpitations, headache. OBJECTIVE: Vital Signs Period Temp Pulse Resp BP Sys/Carmona Pulse Ox Last 24 Hr 97.4 F-98.2 F 70-99 15-22 132-176/40-75 96-100 GENERAL: The patient is awake, alert, fully oriented NECK: Trachea midline, full range of motion, supple. LUNGS: On 5L NC. Diminished breath sounds throughout lung bases. No wheezes or crackles HEART: Regular rate and rhythm, S1, S2 without murmur, rub or gallop. ABDOMEN: Obese, soft, nontender, mildly distended, normoactive bowel sounds, no guarding, no rebound, no hepatosplenomegaly, no masses. EXTREMITIES: 3+ bilateral lower extremity lymphedema with cellulitic changes. Laboratory Results - last 24 hr 02/21/16 02/21/16 05:00 05:00 WBC 6.2 RBC 2.93 L Hgb 7.2 L Hct 22.7 L MCV 77.5 L MCHC 31.6 L RDW 16.8 H Plt Count 206 MPV 7.2 L Neutrophils % 77.0 Lymphocytes % 10.0 D Monocytes % 12.9 H D Eosinophils % 0.0 Basophils % 0.1 Sodium 143 Potassium 5.0 D Chloride 105 Carbon Dioxide 28 Anion Gap 10 BUN 84 H Creatinine 5.5 H Creat Clearance w eGFR 10.24 Random Glucose 108 H D Calcium 6.8 L* Phosphorus 6.6 H D Magnesium 2.4 Total Bilirubin 0.4 D AST 15 D ALT 34 Alkaline Phosphatase 75 Total Protein 5.6 L Albumin 2.8 L Active Medications Generic Name Dose Route Start Last Admin Trade Name Freq PRN Reason Stop Dose Admin Albuterol Sulfate 1 amp 02/18/16 16:41 02/19/16 19:12 Ventolin 0.083% Nebulizer Soln - NEB 1 amp Q4H PRN Administration SHORT OF BREATH/WHEEZING Arformoterol Tartrate 1 amp 02/18/16 22:00 02/20/16 21:44 Brovana (Restricted To Pulmonology/Resp) - NEB 1 amp BID LESLEE Administration Aspirin 81 mg 02/18/16 20:45 02/20/16 09:30 Ecotrin - PO 81 mg DAILY LESLEE Administration Calcium Acetate 667 mg 02/19/16 12:00 02/21/16 08:05 Phoslo - PO 667 mg TIDCM LESLEE Administration Calcium Carbonate 1,300 mg 02/20/16 13:00 02/20/16 21:16 Calcium Carbonate - PO 1,300 mg BID LESLEE Administration Chlorhexidine Gluconate 1 applic 02/18/16 22:00 02/20/16 21:16 Hibiclens For Decolonization - TP 1 applic HS LESLEE Administration Duloxetine HCl 20 mg 02/18/16 20:45 02/20/16 09:30 Cymbalta - PO 20 mg DAILY LESLEE Administration Heparin Sodium (Porcine) 5,000 unit 02/18/16 20:15 02/21/16 01:17 Heparin - SQ 5,000 unit Q8H-IV LESLEE Administration Clindamycin Phosphate 50 mls @ 100 mls/hr 02/18/16 20:15 02/21/16 02:01 Cleocin 600 Mg Premix Ivpb - IVPB 100 mls/hr Q8H-IV LESLEE Administration Aztreonam 1 gm/ Dextrose 50 mls @ 100 mls/hr 02/19/16 10:00 02/21/16 01:16 IVPB 100 mls/hr Q8H-IV LESLEE Administration Mupirocin 1 applic 02/18/16 22:00 02/20/16 21:15 Bactroban Ointment (For Decolonization) - NS 02/23/16 21:59 1 applic BID LESLEE Administration Prasugrel 10 mg 02/18/16 20:45 02/20/16 09:30 Effient - PO 10 mg DAILY LESLEE Administration Prednisone 40 mg 02/20/16 10:00 02/20/16 09:30 Deltasone - PO 40 mg DAILY LESLEE Administration Pregabalin 25 mg 02/18/16 20:45 02/20/16 09:30 Lyrica - PO 25 mg DAILY LESLEE Administration ASSESSMENT/PLAN: Patient is a 75 year old male with a PMHx of CKD, Hypertension, COPD, CHF, PVD, Chronic LE lymph edema who presents for increased lethargy, oliguria, wound infection and sepsis. Patient admitted to the ICU for acute respiratory distress requiring NIPPV. Pulmonology Acute respiratory failure with Acute on Chronic COPD -Likely from Sepsis secondary to LE infection -On NC saturating well -BIPAP as needed -Continue Prednisone 40 mg daily -Continue Brovana BID -Continue Nebulizer Q4H PRN -Last AB./59.3/135 Infectious Disease: Sepsis Nephrology Acute on Chronic Kidney Disease -Possibly from volume depletion vs. ATN vs. Obstructive Nephropathy -BUN/Cr 84/5.5 -Had 2 sessions of dialysis with last one yesterday -Avoid nephrotoxic drugs -Monitor I&O's -Check urine lytes/UA -Trend BMP -Nephrology consult appreciated Hyperkalemia likely from Renal Failure (resolved) -Today 5.0 -Non-specific EKG's. Normal Sinus Rhythm at 80BPM -IV NS given in ED -Repeat BMP Cardiology Diastolic CHF -No signs of Acute CHF -Given a Bolus of IVNS -Light hydration if needed -Continue to monitor -Chest X-rays F/E/N -On no fluids -Hyperkalemia -NPO
--- NOTE | 2016-02-21 08:56 | PN ---
Physical Exam: SUBJECTIVE: Patient seen and examined by me at bedside. Patient currently on 5L NC and saturating well. He reports his breathing is much better and offers no complaints. Otherwise, patient denies fever, chills, nausea, vomiting, chest pain, headaches, double vision. OBJECTIVE: Vital Signs Period Temp Pulse Resp BP Sys/Carmona Pulse Ox Last 24 Hr 97.4 F-98.2 F 70-99 15-22 132-176/40-75 96-100 GENERAL: The patient is awake, alert, and fully oriented NECK: Trachea midline, full range of motion, supple. LUNGS: On 5L NC saturating at 99%. Diminished breath sounds throughout lung bases. No wheezes or crackles appreciated HEART: Regular rate and rhythm, S1, S2 without murmur, rub or gallop. ABDOMEN: Obese, soft, nontender, mildly distended, normoactive bowel sounds, no guarding, no rebound, no hepatosplenomegaly, no masses. EXTREMITIES: 3+ bilateral lower extremity lymphedema with bilateral cellulitic changes Laboratory Results - last 24 hr 02/21/16 02/21/16 05:00 05:00 WBC 6.2 RBC 2.93 L Hgb 7.2 L Hct 22.7 L MCV 77.5 L MCHC 31.6 L RDW 16.8 H Plt Count 206 MPV 7.2 L Neutrophils % 77.0 Lymphocytes % 10.0 D Monocytes % 12.9 H D Eosinophils % 0.0 Basophils % 0.1 Sodium 143 Potassium 5.0 D Chloride 105 Carbon Dioxide 28 Anion Gap 10 BUN 84 H Creatinine 5.5 H Creat Clearance w eGFR 10.24 Random Glucose 108 H D Calcium 6.8 L* Phosphorus 6.6 H D Magnesium 2.4 Total Bilirubin 0.4 D AST 15 D ALT 34 Alkaline Phosphatase 75 Total Protein 5.6 L Albumin 2.8 L Active Medications Generic Name Dose Route Start Last Admin Trade Name Freq PRN Reason Stop Dose Admin Albuterol Sulfate 1 amp 02/18/16 16:41 02/19/16 19:12 Ventolin 0.083% Nebulizer Soln - NEB 1 amp Q4H PRN Administration SHORT OF BREATH/WHEEZING Arformoterol Tartrate 1 amp 02/18/16 22:00 02/20/16 21:44 Brovana (Restricted To Pulmonology/Resp) - NEB 1 amp BID LESLEE Administration Aspirin 81 mg 02/18/16 20:45 02/20/16 09:30 Ecotrin - PO 81 mg DAILY LESLEE Administration Calcium Acetate 667 mg 02/19/16 12:00 02/21/16 08:05 Phoslo - PO 667 mg TIDCM LESLEE Administration Calcium Carbonate 1,300 mg 02/20/16 13:00 02/20/16 21:16 Calcium Carbonate - PO 1,300 mg BID LESLEE Administration Chlorhexidine Gluconate 1 applic 02/18/16 22:00 02/20/16 21:16 Hibiclens For Decolonization - TP 1 applic HS LESLEE Administration Duloxetine HCl 20 mg 02/18/16 20:45 02/20/16 09:30 Cymbalta - PO 20 mg DAILY LESLEE Administration Heparin Sodium (Porcine) 5,000 unit 02/18/16 20:15 02/21/16 01:17 Heparin - SQ 5,000 unit Q8H-IV LESLEE Administration Clindamycin Phosphate 50 mls @ 100 mls/hr 02/18/16 20:15 02/21/16 02:01 Cleocin 600 Mg Premix Ivpb - IVPB 100 mls/hr Q8H-IV LESLEE Administration Aztreonam 1 gm/ Dextrose 50 mls @ 100 mls/hr 02/19/16 10:00 02/21/16 01:16 IVPB 100 mls/hr Q8H-IV LESLEE Administration Mupirocin 1 applic 02/18/16 22:00 02/20/16 21:15 Bactroban Ointment (For Decolonization) - NS 02/23/16 21:59 1 applic BID LESLEE Administration Prasugrel 10 mg 02/18/16 20:45 02/20/16 09:30 Effient - PO 10 mg DAILY LESLEE Administration Prednisone 40 mg 02/20/16 10:00 02/20/16 09:30 Deltasone - PO 40 mg DAILY LESLEE Administration Pregabalin 25 mg 02/18/16 20:45 02/20/16 09:30 Lyrica - PO 25 mg DAILY LESLEE Administration ASSESSMENT/PLAN: Patient is a 75 year old male with a PMHx of CKD, Hypertension, COPD, CHF, PVD, Chronic LE lymph edema who presents for increased lethargy, oliguria, wound infection and sepsis. Patient admitted to the ICU for acute respiratory distress requiring NIPPV. Pulmonology Acute respiratory failure with Acute on Chronic COPD exacerbation -Likely from Sepsis secondary to LE infection -On 5L NC saturating well -BIPAP as needed -Prednisone 40mg daily -Continue Brovana BID -Continue Nebulizer Q4H PRN Infectious Disease Sepsis secondary to bilateral LE cellulitis (resolving) -Cultures negative -Clindamycin 600 mg IV Q8H -Aztreonam Q8H -ID consult appreciated Nephrology Acute on Chronic Kidney Disease -Possibly from volume depletion vs. ATN vs. Obstructive Nephropathy -S/P dialysis yesterday. No need for dialysis today -BUN/Cr today 84/5.5 -Continues to be Anuric -Lasix Trial 120mg IVPB today -Avoid nephrotoxic drugs -Monitor I&O's -Check urine lytes/UA -Trend BMP -Nephrology consult appreciated Hyperkalemia likely from Renal Failure -Today 5.0 -Repeat BMP Hypocalcemia/Hyperphosphatemia -Corrected calcium 7.76 today -Phosphorous 6.6 today -Continue with Calcium Carbonate -Continue with Phoslo Cardiology Diastolic CHF -No signs of Acute CHF -Continue to monitor -Chest X-rays HTN -Hold anti-htn medications -Controlled Heme/Onco Anemia -Hgb of 7.2 today -Will Continue to monitor CBC History of Depression -Continue Cymbalta 20mg daily F/E/N -On no fluids -Hypocalcemia -Renal Diet Prophylaxis -Heparin SQ for DVT -No GI needed Disposition -Full code -Stable for transfer to the floors Visit type - Emergency Visit Emergency Visit: No - New Patient This patient is new to me today: Yes Date on this admission: 02/21/16 - Critical Care Critical Care patient: Yes Total Critical Care Time (in minutes): 45 Critical Care Statement: The care of this patient involved high complexity decision making to prevent further life threatening deterioration of the patient 's condition and/or to evalute & treat vital organ system(s) failure or risk of failure.
[2016-02-21] MEDS: CALCIUM CARBONATE 650 MG TABLET PO SCH ×2 (09:07→21:57)
[2016-02-21] MEDS: ASPIRIN COATED 81 MG TABLET.EC PO SCH (09:07)
[2016-02-21] MEDS: predniSONE 20 MG TABLET (UD) PO SCH (09:07)
[2016-02-21] MEDS: DULoxetine HCL 20 MG CAPSULE.DR (FP) PO SCH (09:07)
[2016-02-21] MEDS: PRASUGREL HCL 10 MG TAB PO SCH (09:08)
[2016-02-21] MEDS: PREGABALIN 25 MG CAPSULE PO SCH (09:08)
[2016-02-21] MEDS: MUPIROCIN 2% TOPICAL OINTMENT FOR DECOLONIZATION NS SCH ×2 (09:09→21:57)
[2016-02-21] MEDS: ARFORMOTEROL TARTRATE 15 MCG/2 ML VIAL NEB SCH ×2 (09:44→22:42)
--- NOTE | 2016-02-21 10:41 | PN ---
Progress Note (short form) - Note Progress Note: Renal Follow up for KARLOS Pt seen and examined in the ICU awake and alert no complaints denies sob, chest pain, abd pain, diarrhea, fever, chills s/p Hd yesterday with ~3L UF Vital Signs Temperature 97.8 F 02/21/16 08:00 Pulse Rate 79 02/21/16 09:36 Respiratory Rate 18 02/21/16 08:00 Blood Pressure 157/67 02/21/16 08:00 O2 Sat by Pulse Oximetry (%) 98 02/21/16 09:36 Intake & Output 02/18/16 02/19/16 02/20/16 02/21/16 23:59 23:59 23:59 23:59 Intake Total 50 4500 1750 450 Output Total 100 450 250 Balance -50 4050 1750 200 Weight 310 lb 326 lb 4.8 oz 331 lb 9.204 oz 320 lb Gen: NAD CVS: RRR No M/R Lungs: Dec BS throughout the lung rey Abd: Soft NT + Mild distension Ext: > 3+ LE Lymph edema, no cyanosis or clubbing HD Access: Right IJ trialysis catheter CBC, BMP 02/21/16 05:00 02/21/16 05:00 Current Medications Albuterol Sulfate (Ventolin 0.083% Nebulizer Soln -) 1 amp NEB Q4H PRN PRN Reason: SHORT OF BREATH/WHEEZING Last Admin: 02/19/16 19:12 Dose: 1 amp Arformoterol Tartrate (Brovana (Restricted To Pulmonology/Resp) -) 1 amp NEB BID [facility] Last Admin: 02/21/16 09:44 Dose: 1 amp Aspirin (Ecotrin -) 81 mg PO DAILY [facility] Last Admin: 02/21/16 09:07 Dose: 81 mg Calcium Acetate (Phoslo -) 667 mg PO TIDCM [facility] Last Admin: 02/21/16 08:05 Dose: 667 mg Calcium Carbonate (Calcium Carbonate -) 1,300 mg PO BID [facility] Last Admin: 02/21/16 09:07 Dose: 1,300 mg Chlorhexidine Gluconate (Hibiclens For Decolonization -) 1 applic TP HS [facility] Last Admin: 02/20/16 21:16 Dose: 1 applic Duloxetine HCl (Cymbalta -) 20 mg PO DAILY [facility] Last Admin: 02/21/16 09:07 Dose: 20 mg Heparin Sodium (Porcine) (Heparin -) 5,000 unit SQ Q8H-IV LESLEE Last Admin: 02/21/16 09:06 Dose: 5,000 unit Clindamycin Phosphate (Cleocin 600 Mg Premix Ivpb -) 50 mls @ 100 mls/hr IVPB Q8H-IV LESLEE Last Admin: 02/21/16 09:06 Dose: 100 mls/hr Aztreonam 1 gm/ Dextrose 50 mls @ 100 mls/hr IVPB Q8H-IV LESLEE Last Admin: 02/21/16 09:06 Dose: 100 mls/hr Mupirocin (Bactroban Ointment (For Decolonization) -) 1 applic NS BID [facility] Stop: 02/23/16 21:59 Last Admin: 02/21/16 09:09 Dose: 1 applic Prasugrel (Effient -) 10 mg PO DAILY [facility] Last Admin: 02/21/16 09:08 Dose: 10 mg Prednisone (Deltasone -) 40 mg PO DAILY [facility] Last Admin: 02/21/16 09:07 Dose: 40 mg Pregabalin (Lyrica -) 25 mg PO DAILY [facility] Last Admin: 02/21/16 09:08 Dose: 25 mg A/P 75 year old Gentleman with PMhx of CKD Stage 3 (baseline Cr 1.9), Hx of Nephrolithiasis, Hypertension, COPD, CHF, PVD, Chronic LE lymph edema who was sent into the ED from wound care for increased lethargy and decreased urination for several days with KARLOS with BUN/Cr of 115/7.2 and K of 6.5 #Acute Renal Failure on CKD Initial Urine studies showed pre-renal etiology -? Cardio-renal syndrome Repeat Urine studies today Lasix Trial 120mg IVPB today, urine output from yesterday not documented s/p 2 sessions of Hd, no acute indication for [employer] today Dose all meds for Cr Cl less then 10 #Anemia F/u iron studies Transfuse as per ICU protocol #Resp Acidosis/COPD Management as per [facility] pt with incomplete metabolic compensation likely secondary to renal failure #Hypocalcemia/Hyperphosphatemia Corrected CA is 7.76 Check PTH continue Phos low and Calcium Carbonate Melvin Johnson DO
--- NOTE | 2016-02-21 11:34 | PN ---
Teaching Attending Note Name of Resident: Mindy Wade ATTENDING PHYSICIAN STATEMENT I saw and evaluated the patient. I reviewed the resident's note and discussed the case with the resident. I agree with the resident's findings and plan as documented. SUBJECTIVE: Pt seen and examined in the ICU. Denies shortness of breath or chest pain. BiPAP overnight. OBJECTIVE: Last Vital Signs Temp Pulse Resp BP Pulse Ox 97.8 F 81 14 150/99 98 02/21/16 08:00 02/21/16 10:00 02/21/16 10:00 02/21/16 10:00 02/21/16 09:36 Intake & Output 02/18/16 02/19/16 02/20/16 02/21/16 23:59 23:59 23:59 23:59 Intake Total 50 4500 1750 450 Output Total 100 450 350 Balance -50 4050 1750 100 Weight 310 lb 326 lb 4.8 oz 331 lb 9.204 oz 320 lb Gen: NAD at rest Heart: RRR Lung: decreased breath sounds at the bases Abd: soft, obese, nontender Ext: + edema, +erythema CBC, BMP 02/21/16 05:00 02/21/16 05:00 Active Medications Albuterol Sulfate (Ventolin 0.083% Nebulizer Soln -) 1 amp NEB Q4H PRN PRN Reason: SHORT OF BREATH/WHEEZING Last Admin: 02/19/16 19:12 Dose: 1 amp Arformoterol Tartrate (Brovana (Restricted To Pulmonology/Resp) -) 1 amp NEB BID [facility] Last Admin: 02/21/16 09:44 Dose: 1 amp Aspirin (Ecotrin -) 81 mg PO DAILY [facility] Last Admin: 02/21/16 09:07 Dose: 81 mg Calcium Acetate (Phoslo -) 667 mg PO TIDCM [facility] Last Admin: 02/21/16 08:05 Dose: 667 mg Calcium Carbonate (Calcium Carbonate -) 1,300 mg PO BID [facility] Last Admin: 02/21/16 09:07 Dose: 1,300 mg Chlorhexidine Gluconate (Hibiclens For Decolonization -) 1 applic TP HS [facility] Last Admin: 02/20/16 21:16 Dose: 1 applic Duloxetine HCl (Cymbalta -) 20 mg PO DAILY [facility] Last Admin: 02/21/16 09:07 Dose: 20 mg Heparin Sodium (Porcine) (Heparin -) 5,000 unit SQ Q8H-IV LESLEE Last Admin: 02/21/16 09:06 Dose: 5,000 unit Clindamycin Phosphate (Cleocin 600 Mg Premix Ivpb -) 50 mls @ 100 mls/hr IVPB Q8H-IV LESLEE Last Admin: 02/21/16 09:06 Dose: 100 mls/hr Aztreonam 1 gm/ Dextrose 50 mls @ 100 mls/hr IVPB Q8H-IV LESLEE Last Admin: 02/21/16 09:06 Dose: 100 mls/hr Mupirocin (Bactroban Ointment (For Decolonization) -) 1 applic NS BID [facility] Stop: 02/23/16 21:59 Last Admin: 02/21/16 09:09 Dose: 1 applic Prasugrel (Effient -) 10 mg PO DAILY [facility] Last Admin: 02/21/16 09:08 Dose: 10 mg Prednisone (Deltasone -) 40 mg PO DAILY [facility] Last Admin: 02/21/16 09:07 Dose: 40 mg Pregabalin (Lyrica -) 25 mg PO DAILY [facility] Last Admin: 02/21/16 09:08 Dose: 25 mg ASSESSMENT AND PLAN: Acute on Chronic Renal Failure requiring HD Volume Overload Hyperkalemia Cellulitis Acute COPD Exacerbation CAD - HD per renal - antibiotics per ID, can likely narrow coverage - prednisone taper - inhaled bronchodilators - BiPAP at night and PRN during day - continue cardiac meds - DVT prophylaxis - can monitor on med-surg Renal Failure requiring HD Volume overload Hyperkalemia Cellulitis COPD CAD -NIPPV support as needed, will transition to ND post HD -HD as per renal - will get HD today -Volume removal with UF -Nebs -Steroids - can convert to Pred 40 for 5 more days -Abx for cellulitis -ASA/Effient -DVT PPx Continue to monitor in ICU, critically ill
[2016-02-21 14:14] LABS: HEP B SURFACE AB Non Reactive (.)
--- NOTE | 2016-02-21 14:50 | PN ---
Progress Note, Physician History of Present Illness: patient doing much better no complaints legs feel good was dialysed yesterday - Current Medication List Current Medications: Active Medications Albuterol Sulfate (Ventolin 0.083% Nebulizer Soln -) 1 amp NEB Q4H PRN PRN Reason: SHORT OF BREATH/WHEEZING Last Admin: 02/19/16 19:12 Dose: 1 amp Arformoterol Tartrate (Brovana (Restricted To Pulmonology/Resp) -) 1 amp NEB BID [facility] [place] Last Admin: 02/21/16 09:44 Dose: 1 amp Aspirin (Ecotrin -) 81 mg PO DAILY [facility] [place] Last Admin: 02/21/16 09:07 Dose: 81 mg Calcium Acetate (Phoslo -) 667 mg PO TIDCM [facility] [place] Last Admin: 02/21/16 12:59 Dose: 667 mg Calcium Carbonate (Calcium Carbonate -) 1,300 mg PO BID [facility] [place] Last Admin: 02/21/16 09:07 Dose: 1,300 mg Chlorhexidine Gluconate (Hibiclens For Decolonization -) 1 applic TP HS [facility] [place] Last Admin: 02/20/16 21:16 Dose: 1 applic Duloxetine HCl (Cymbalta -) 20 mg PO DAILY [facility] [place] Last Admin: 02/21/16 09:07 Dose: 20 mg Heparin Sodium (Porcine) (Heparin -) 5,000 unit SQ Q8H-IV [facility] [place] Last Admin: 02/21/16 09:06 Dose: 5,000 unit Clindamycin Phosphate (Cleocin 600 Mg Premix Ivpb -) 50 mls @ 100 mls/hr IVPB Q8H-IV [facility] Last Admin: 02/21/16 09:06 Dose: 100 mls/hr Aztreonam 1 gm/ Dextrose 50 mls @ 100 mls/hr IVPB Q8H-IV [facility] Last Admin: 02/21/16 09:06 Dose: 100 mls/hr Mupirocin (Bactroban Ointment (For Decolonization) -) 1 applic NS BID [facility] [place] Stop: 02/23/16 21:59 Last Admin: 02/21/16 09:09 Dose: 1 applic Prasugrel (Effient -) 10 mg PO DAILY [facility] [place] Last Admin: 02/21/16 09:08 Dose: 10 mg Prednisone (Deltasone -) 40 mg PO DAILY [facility] [place] Last Admin: 02/21/16 09:07 Dose: 40 mg Pregabalin (Lyrica -) 25 mg PO DAILY [facility] Last Admin: 02/21/16 09:08 Dose: 25 mg - Objective Vital Signs: Vital Signs Temperature 97.7 F 02/21/16 14:00 Pulse Rate 90 02/21/16 14:00 Respiratory Rate 14 02/21/16 14:00 Blood Pressure 180/74 02/21/16 14:00 O2 Sat by Pulse Oximetry (%) 98 02/21/16 09:36 Constitutional: Yes: No Distress, Calm Cardiovascular: Yes: Regular Rate and Rhythm Respiratory: Yes: Poor Air Entry, Rhonchi Gastrointestinal: Yes: Normal Bowel Sounds, Soft Musculoskeletal: Yes: Other Extremities: Yes: Other (legs looking much better draiange minimal) Edema: LLE: 2+, RLE: 2+ Integumentary: Yes: Erythema (resolving) Wound/Incision: Yes: Clean/Dry, Other (dialysis cather site looks good) Neurological: Yes: Alert, Oriented Psychiatric: Yes: Alert, Oriented Labs: CBC, BMP 02/21/16 05:00 02/21/16 05:00 INR, PTT INR 1.12 (0.82-1.09) 02/18/16 13:00 Assessment/Plan 75 year-old man with a PMH of HTN, PVD, COPD, CKD (baseline Cr 1.9), nephrolithiasis, and chronic LE lymphedema. Admitted in acute renal failure. Acute on chronic renal failure Hyperkalemia Sepsis s Hypertension Peripheral vascular disease Hypercarbic respiratory failure COPD bilateral cellulitis of the legs plan continue current abx rest as per primary monitor closely icu critical care once patient stable will deescalate the abx cc time 40min
--- NOTE | 2016-02-21 15:19 | PN ---
Physical Exam: SUBJECTIVE: Patient seen and examined at bedside. Pt feels well today. Has no complaints. He slept well and used bipap overnight. He is currently on NC oxygen and is oxygenating well and feels well. Denies CP, SOB, abdominal, palpitations, light-headedness, N/V/F/C. OBJECTIVE: Vital Signs Temperature 97.7 F 02/21/16 14:00 Pulse Rate 90 02/21/16 14:00 Respiratory Rate 14 02/21/16 14:00 Blood Pressure 180/74 02/21/16 14:00 O2 Sat by Pulse Oximetry (%) 98 02/21/16 09:36 GENERAL: The patient is awake, alert, and fully oriented, in no acute distress. Laying in bed comfortably on NC. HEAD: Normal with no signs of trauma. EYES: conjunctiva clear. No ptosis. ENT: moist mucous membranes. NECK: Trachea midline, full range of motion. LUNGS: Diminished breath sounds. Did not appreciate crackles or wheezing. HEART: Distant heart sounds. Regular rate and rhythm, S1, S2 without murmur, rub or gallop. ABDOMEN: Soft, obese, nontender, nondistended, normoactive bowel sounds, no guarding, no rebound, no hepatosplenomegaly, no masses. EXTREMITIES: 2+ pulses, warm, well-perfused, B/L cellulitic changes, B/L LE pitting edema. NEUROLOGICAL: Normal speech, gait not observed. PSYCH: Normal mood, normal affect. SKIN: Warm, dry, normal turgor. Laboratory Results - last 24 hr 02/19/16 02/21/16 02/21/16 06:50 05:00 05:00 WBC 6.2 RBC 2.93 L Hgb 7.2 L Hct 22.7 L MCV 77.5 L MCHC 31.6 L RDW 16.8 H Plt Count 206 MPV 7.2 L Neutrophils % 77.0 Lymphocytes % 10.0 D Monocytes % 12.9 H D Eosinophils % 0.0 Basophils % 0.1 Sodium 143 Potassium 5.0 D Chloride 105 Carbon Dioxide 28 Anion Gap 10 BUN 84 H Creatinine 5.5 H Creat Clearance w eGFR 10.24 Random Glucose 108 H D Calcium 6.8 L* Phosphorus 6.6 H D Magnesium 2.4 Total Bilirubin 0.4 D AST 15 D ALT 34 Alkaline Phosphatase 75 Total Protein 5.6 L Albumin 2.8 L Hepatitis A Ab Total Negative Hep Bs Antigen Negative Hep Bs Antibody Non reactive Hep B Core Total Ab Negative Hepatitis C Antibody 0.1 Microbiology 02/18/16 19:15 Blood - Peripheral Venous Blood Culture - Preliminary NO GROWTH OBTAINED AFTER 48 HOURS, INCUBATION TO CONTINUE FOR 3 DAYS. 02/18/16 19:15 Blood - Peripheral Venous Blood Culture - Preliminary NO GROWTH OBTAINED AFTER 48 HOURS, INCUBATION TO CONTINUE FOR 3 DAYS. 02/18/16 18:10 Urine - Urine Clean Catch Urine Culture - Final NO GROWTH OBTAINED Active Medications Generic Name Dose Route Start Last Admin Trade Name Freq PRN Reason Stop Dose Admin Albuterol Sulfate 1 amp 02/18/16 16:41 02/19/16 19:12 Ventolin 0.083% Nebulizer Soln - NEB 1 amp Q4H PRN Administration SHORT OF BREATH/WHEEZING Arformoterol Tartrate 1 amp 02/18/16 22:00 02/21/16 09:44 Brovana (Restricted To Pulmonology/Resp) - NEB 1 amp BID [facility] Administration Aspirin 81 mg 02/18/16 20:45 02/21/16 09:07 Ecotrin - PO 81 mg DAILY [facility] Administration Calcium Acetate 667 mg 02/19/16 12:00 02/21/16 12:59 Phoslo - PO 667 mg TIDCM [facility] Administration Calcium Carbonate 1,300 mg 02/20/16 13:00 02/21/16 09:07 Calcium Carbonate - PO 1,300 mg BID [facility] Administration Chlorhexidine Gluconate 1 applic 02/18/16 22:00 02/20/16 21:16 Hibiclens For Decolonization - TP 1 applic HS [facility] Administration Duloxetine HCl 20 mg 02/18/16 20:45 02/21/16 09:07 Cymbalta - PO 20 mg DAILY [facility] Administration Heparin Sodium (Porcine) 5,000 unit 02/18/16 20:15 02/21/16 09:06 Heparin - SQ 5,000 unit Q8H-IV [facility] Administration Clindamycin Phosphate 50 mls @ 100 mls/hr 02/18/16 20:15 02/21/16 09:06 Cleocin 600 Mg Premix Ivpb - IVPB 100 mls/hr Q8H-IV [facility] Administration Aztreonam 1 gm/ Dextrose 50 mls @ 100 mls/hr 02/19/16 10:00 02/21/16 09:06 IVPB 100 mls/hr Q8H-IV [facility] Administration Mupirocin 1 applic 02/18/16 22:00 02/21/16 09:09 Bactroban Ointment (For Decolonization) - NS 02/23/16 21:59 1 applic BID [facility] Administration Prasugrel 10 mg 02/18/16 20:45 02/21/16 09:08 Effient - PO 10 mg DAILY [facility] Administration Prednisone 40 mg 02/20/16 10:00 02/21/16 09:07 Deltasone - PO 40 mg DAILY [facility] Administration Pregabalin 25 mg 02/18/16 20:45 02/21/16 09:08 Lyrica - PO 25 mg DAILY [facility] Administration ASSESSMENT/PLAN: 75 year-old man with a PMH of HTN, PVD, COPD, CKD (baseline Cr 1.9), nephrolithiasis, and chronic LE lymphedema. Admitted for acute renal failure ( hyperkalemia) and respiratory distress. 1. Acute on chronic renal failure -BUN/Cr 84/5.5 (baseline 1.8) -anuric -HD as per nephrology 2. Acute Hyperkalemia -5.0 today, improving s/p HD -on HD -f/u bmp 3. Acute COPD exacerbation with hypercapnic respiratory failure -Bipap as needed -NC O2 5L. Still oxygenating well. -c/w prednisone 40 mg PO qd, brovana, albuterol PRN 4. Sepsis secondary to B/L lower extremity cellulitis -ID on board -c/w clindamycin 600 mg iv q8h -c/w aztreonam 1gm q8h 5. HTN -off anti-hypertensives for now 6. Hx of Depression -c/w cymbalta 7. CAD -prasugrel 10 mg PO qd 8. FEN -hyperkalemia, high normal today - on HD -corrected Ca - 7.76 -hypocalcemia - calcium carbonate 9. Dispo: can be transferred to med/surg for continued management. Problem List - Problems (1) Acute kidney failure Code(s): N17.9 - ACUTE KIDNEY FAILURE, UNSPECIFIED Qualifiers: Acute renal failure type: unspecified Qualified Code(s): N17.9 - Acute kidney failure, unspecified (2) COPD exacerbation Code(s): J44.1 - CHRONIC OBSTRUCTIVE PULMONARY DISEASE W (ACUTE) EXACERBATION (3) Hyperkalemia Code(s): E87.5 - HYPERKALEMIA (4) Acute and chronic respiratory failure ([id number]) Code(s): J96.20 - ACUTE AND CHR RESP FAILURE, UNSP W HYPOXIA OR HYPERCAPNIA Qualifiers: Respiratory failure complication: hypoxia and hypercapnia Qualified Code(s): J96.21 - Acute and chronic respiratory failure with hypoxia (5) Acute exacerbation of chronic obstructive pulmonary disease (COPD) Code(s): J44.1 - CHRONIC OBSTRUCTIVE PULMONARY DISEASE W (ACUTE) EXACERBATION (6) Acute on chronic diastolic (congestive) heart failure Code(s): I50.33 - ACUTE ON CHRONIC DIASTOLIC (CONGESTIVE) HEART FAILURE (7) Anxiety and depression Code(s): F41.9 - ANXIETY DISORDER, UNSPECIFIED F32.9 - MAJOR DEPRESSIVE DISORDER, SINGLE EPISODE, UNSPECIFIED (8) Cellulitis Code(s): L03.90 - CELLULITIS, UNSPECIFIED Qualifiers: Site of cellulitis of extremity: lower extremity (9) Chronic kidney disease (CKD) Code(s): N18.9 - CHRONIC KIDNEY DISEASE, UNSPECIFIED Qualifiers: Chronic kidney disease stage: unspecified stage Qualified Code(s): N18.9 - Chronic kidney disease, unspecified (10) Diastolic CHF Code(s): I50.30 - UNSPECIFIED DIASTOLIC (CONGESTIVE) HEART FAILURE (11) Hyperlipidemia Code(s): E78.5 - HYPERLIPIDEMIA, UNSPECIFIED (12) Hypertension Code(s): I10 - ESSENTIAL (PRIMARY) HYPERTENSION (13) Obesities, morbid Code(s): E66.01 - MORBID (SEVERE) OBESITY DUE TO EXCESS CALORIES Qualifiers: Obesity type: with alveolar hypoventilation Qualified Code(s): E66.2 - Morbid (severe) obesity with alveolar hypoventilation (14) Respiratory failure with hypoxia and hypercapnia Code(s): J96.91 - RESPIRATORY FAILURE, UNSPECIFIED WITH HYPOXIA J96.92 - RESPIRATORY FAILURE, UNSPECIFIED WITH HYPERCAPNIA Qualifiers: Chronicity: acute on chronic Qualified Code(s): J96.21 - Acute and chronic respiratory failure with hypoxia; J96.22 - Acute and chronic respiratory failure with hypercapnia (15) Shortness of breath Code(s): R06.02 - SHORTNESS OF BREATH Visit type - Emergency Visit Emergency Visit: No - New Patient This patient is new to me today: No - Critical Care Critical Care patient: Yes Total Critical Care Time (in minutes): 35 Critical Care Statement: The care of this patient involved high complexity decision making to prevent further life threatening deterioration of the patient 's condition and/or to evalute & treat vital organ system(s) failure or risk of failure.
[2016-02-21] MEDS: ALBUTEROL SO4 0.083% IH SOL 2.5 MG/3 ML VIAL.NEB. NEB PRN (16:50)
--- NOTE | 2016-02-21 17:55 | PN ---
Progress Note, Physician History of Present Illness: Pt awake and NAD. Off Bipap - Current Medication List Current Medications: Active Medications Albuterol Sulfate (Ventolin 0.083% Nebulizer Soln -) 1 amp NEB Q4H PRN PRN Reason: SHORT OF BREATH/WHEEZING Last Admin: 02/19/16 19:12 Dose: 1 amp Arformoterol Tartrate (Brovana (Restricted To Pulmonology/Resp) -) 1 amp NEB BID [facility] Last Admin: 02/21/16 09:44 Dose: 1 amp Aspirin (Ecotrin -) 81 mg PO DAILY [facility] Last Admin: 02/21/16 09:07 Dose: 81 mg Calcium Acetate (Phoslo -) 667 mg PO TIDCM [facility] Last Admin: 02/21/16 17:40 Dose: 667 mg Calcium Carbonate (Calcium Carbonate -) 1,300 mg PO BID [facility] Last Admin: 02/21/16 09:07 Dose: 1,300 mg Chlorhexidine Gluconate (Hibiclens For Decolonization -) 1 applic TP HS [facility] Last Admin: 02/20/16 21:16 Dose: 1 applic Duloxetine HCl (Cymbalta -) 20 mg PO DAILY [facility] Last Admin: 02/21/16 09:07 Dose: 20 mg Heparin Sodium (Porcine) (Heparin -) 5,000 unit SQ Q8H-IV [facility] Last Admin: 02/21/16 17:40 Dose: 5,000 unit Clindamycin Phosphate (Cleocin 600 Mg Premix Ivpb -) 50 mls @ 100 mls/hr IVPB Q8H-IV [facility] Last Admin: 02/21/16 17:40 Dose: 100 mls/hr Aztreonam 1 gm/ Dextrose 50 mls @ 100 mls/hr IVPB Q8H-IV [facility] Last Admin: 02/21/16 09:06 Dose: 100 mls/hr Mupirocin (Bactroban Ointment (For Decolonization) -) 1 applic NS BID [facility] Stop: 02/23/16 21:59 Last Admin: 02/21/16 09:09 Dose: 1 applic Prasugrel (Effient -) 10 mg PO DAILY [facility] Last Admin: 02/21/16 09:08 Dose: 10 mg Prednisone (Deltasone -) 40 mg PO DAILY [facility] Last Admin: 02/21/16 09:07 Dose: 40 mg Pregabalin (Lyrica -) 25 mg PO DAILY [facility] Last Admin: 02/21/16 09:08 Dose: 25 mg - Objective Vital Signs: Vital Signs Temperature 97.5 F L 02/21/16 15:15 Pulse Rate 85 02/21/16 15:15 Respiratory Rate 14 02/21/16 15:15 Blood Pressure 155/70 02/21/16 15:15 O2 Sat by Pulse Oximetry (%) 98 02/21/16 09:36 Constitutional: Yes: No Distress Eyes: Yes: Occular Prosthesis HENT: Yes: Normocephalic Neck: Yes: Supple Cardiovascular: Yes: Regular Rate and Rhythm. No: JVD Respiratory: Yes: Diminished (bilateral) Extremities: Yes: Erythema Edema: Yes Edema: LLE: 1+, RLE: 1+ Neurological: Yes: Alert, Oriented Labs: CBC, BMP 02/21/16 05:00 02/21/16 05:00 INR, PTT INR 1.12 (0.82-1.09) 02/18/16 13:00 - ....Imaging Chest X-ray: Report Reviewed, Image Reviewed Assessment/Plan Renal failure, COPD, hypercapneic respiratory failure. Plan: HD per renal Steroid taper inhaled bronchodilator NIPPV prn antibiotic per ID
[2016-02-21] MEDS: CHLORHEXIDINE GLUCONATE 4% CLEANSER FOR DECOLONIZATION TP SCH (21:58)
--- NOTE | 2016-02-21 22:25 | PN ---
Teaching Attending Note Name of Resident: Freddie Strickland ATTENDING PHYSICIAN STATEMENT I saw and evaluated the patient. I reviewed the resident's note and discussed the case with the resident. I agree with the resident's findings and plan as documented. SUBJECTIVE: Patient is feeling better off bipap now only if needed at night time, otherwise comfortable. OBJECTIVE: Vital Signs Temperature 97.9 F 02/21/16 18:00 Pulse Rate 82 02/21/16 18:00 Respiratory Rate 14 02/21/16 18:00 Blood Pressure 155/70 02/21/16 15:15 O2 Sat by Pulse Oximetry (%) 98 02/21/16 09:36 GENERAL: The patient is awake, alert, and fully oriented, in no acute distress. HEAD: Normal with no signs of trauma. EYES: PERRL, extraocular movements intact, sclera anicteric, conjunctiva clear. No ptosis. ENT: Ears normal, on 3l NC , oropharynx clear without exudates, moist mucous membranes. NECK: Trachea midline, full range of motion, supple. LUNGS: decreased BS BL otherwise CTABL , no wheezes, no crackles, no accessory muscle use. HEART: Regular rate and rhythm, S1, S2 without murmur, rub or gallop. ABDOMEN: Soft, nontender, nondistended, normoactive bowel sounds, no guarding, no rebound, no hepatosplenomegaly, no masses. EXTREMITIES: 2+ pulses, warm, well-perfused, no edema. NEUROLOGICAL: Cranial nerves II through XII grossly intact. Normal speech, gait not observed. PSYCH: Normal mood, normal affect. SKIN: Warm, dry, normal turgor, no rashes or lesions noted CBCD WBC 6.2 K/mm3 (4.0-10.0) 02/21/16 05:00 RBC 2.93 M/mm3 (4.00-5.60) L 02/21/16 05:00 Hgb 7.2 GM/dL (11.7-16.9) L 02/21/16 05:00 Hct 22.7 % (35.4-49) L 02/21/16 05:00 MCV 77.5 fl (80-96) L 02/21/16 05:00 MCHC 31.6 g/dl (32.0-35.9) L 02/21/16 05:00 RDW 16.8 % (11.9-15.9) H 02/21/16 05:00 Plt Count 206 K/MM3 (134-434) 02/21/16 05:00 MPV 7.2 fl (7.5-11.1) L 02/21/16 05:00 CMP Sodium 143 mmol/L (136-145) 02/21/16 05:00 Potassium 5.0 mmol/L (3.5-5.1) D 02/21/16 05:00 Chloride 105 mmol/L (98-107) 02/21/16 05:00 Carbon Dioxide 28 mmol/L (21-32) 02/21/16 05:00 Anion Gap 10 (8-16) 02/21/16 05:00 BUN 84 mg/dL (7-18) H 02/21/16 05:00 Creatinine 5.5 mg/dL (0.7-1.3) H 02/21/16 05:00 Creat Clearance w eGFR 10.24 (>60) 02/21/16 05:00 Random Glucose 108 mg/dL (74-106) H D 02/21/16 05:00 Calcium 6.8 mg/dL (8.5-10.1) L* 02/21/16 05:00 Total Bilirubin 0.4 mg/dL (0.2-1.0) D 02/21/16 05:00 AST 15 U/L (15-37) D 02/21/16 05:00 ALT 34 U/L (12-78) 02/21/16 05:00 Alkaline Phosphatase 75 U/L (45-117) 02/21/16 05:00 Total Protein 5.6 g/dl (6.4-8.2) L 02/21/16 05:00 Albumin 2.8 g/dl (3.4-5.0) L 02/21/16 05:00 CARDIAC ENZYMES Creatine Kinase 76 IU/L (39-308) 02/19/16 05:30 Troponin I < 0.02 ng/ml (0.015-0.045) 02/19/16 21:50 Current Medications Generic Name Dose Route Start Last Admin Trade Name Freq PRN Reason Stop Dose Admin Albuterol Sulfate 1 amp 02/18/16 16:41 02/21/16 16:50 Ventolin 0.083% Nebulizer Soln - NEB 1 amp Q4H PRN Administration SHORT OF BREATH/WHEEZING Arformoterol Tartrate 1 amp 02/18/16 22:00 02/21/16 09:44 Brovana (Restricted To Pulmonology/Resp) - NEB 1 amp BID [facility] Administration Aspirin 81 mg 02/18/16 20:45 02/21/16 09:07 Ecotrin - PO 81 mg DAILY [facility] Administration Calcium Acetate 667 mg 02/19/16 12:00 02/21/16 17:40 Phoslo - PO 667 mg TIDCM [facility] Administration Calcium Carbonate 1,300 mg 02/20/16 13:00 02/21/16 21:57 Calcium Carbonate - PO 1,300 mg BID [facility] Administration Chlorhexidine Gluconate 1 applic 02/18/16 22:00 02/21/16 21:58 Hibiclens For Decolonization - TP 1 applic HS [facility] Administration Duloxetine HCl 20 mg 02/18/16 20:45 02/21/16 09:07 Cymbalta - PO 20 mg DAILY [facility] Administration Heparin Sodium (Porcine) 5,000 unit 02/18/16 20:15 02/21/16 17:40 Heparin - SQ 5,000 unit Q8H-IV [facility] Administration Clindamycin Phosphate 50 mls @ 100 mls/hr 02/18/16 20:15 02/21/16 17:40 Cleocin 600 Mg Premix Ivpb - IVPB 100 mls/hr Q8H-IV [facility] Administration Aztreonam 1 gm/ Dextrose 50 mls @ 100 mls/hr 02/19/16 10:00 02/21/16 19:39 IVPB 100 mls/hr Q8H-IV [facility] Administration Mupirocin 1 applic 02/18/16 22:00 02/21/16 21:57 Bactroban Ointment (For Decolonization) - NS 02/23/16 21:59 Not Given BID [facility] Prasugrel 10 mg 02/18/16 20:45 02/21/16 09:08 Effient - PO 10 mg DAILY [facility] Administration Prednisone 40 mg 02/20/16 10:00 02/21/16 09:07 Deltasone - PO 40 mg DAILY [facility] Administration Pregabalin 25 mg 02/18/16 20:45 02/21/16 09:08 Lyrica - PO 25 mg DAILY [facility] Administration Medication Instructions Recorded Acetaminophen W/ Codeine #3 1 tab PO Q6H PRN 02/18/16 [Tylenol # 3 -] Albuterol 0.083% Nebulizer Soni 1 amp NEB ASDIR PRN 02/18/16 [Ventolin 0.083% Nebulizer Soln -] Aspirin [Ecotrin] 81 mg PO DAILY 02/18/16 Duloxetine HCl 20 mg PO DAILY 02/18/16 Furosemide 20 mg PO HS 02/18/16 Furosemide 40 mg PO DAILY 02/18/16 Hydralazine HCl [Apresoline -] 50 mg PO HS 02/18/16 Prasugrel HCl [Effient] 10 mg PO DAILY 02/18/16 Prednisone 5 mg PO DAILY 02/18/16 Pregabalin [Lyrica] 25 mg PO DAILY 02/18/16 ASSESSMENT AND PLAN: 75 year-old man with a PMHx of HTN, PVD, COPD, CKD (baseline Cr 1.9), nephrolithiasis, and chronic LE lymphedema. Admitted for acute renal failure. #Acute on chronic renal failure on HD now , (baseline 1.8 Cr) presented with 6.5 -->7.2-->7.5-->6.3-->5.5--> 5.0 today ,still anuric, further managment as per ,bill of materials clerk. s/p IJ line right side of the neck. # Acute Hyperkalemia s/p HD again today this morning, K= 6.5-7.2-->7.5-->6.3 s/ p calcium, kayexelate, insulin, sodium bicarb in ED, continue to monitor potassium/bmp. # Acute COPD exacerbation with hypercapnic respiratory failure on 3l NC now, Bipap prn . # s/p Acute Sepsis due to bilateral lower extremity cellulitis of lower extremities( anaerobic smell) ; ID on the case for further care patient was found to be hypothermic on admission with rectal temp of 95 , s/ p Darinel Hugger placement, patient was started on aztreonam (allergic to Penicillin) and clindamycin for MRSA coverage. ID on the case. #Hypertension uncontrolled off BP meds for now. further managment per Dr Alex #Peripheral vascular disease on Effient continue # Hx of Depression on Cymbalta DVT px: Heparin on HD now
[2016-02-22] MEDS: AZTREONAM 1 GM in DEXTROSE 5%-WATER - 50 ML IVPB SCH ×3 (02:15→18:14)
[2016-02-22] MEDS: HEPARIN NA (PORCINE) 5,000 UNITS/ML 1ML VIAL SQ SCH ×3 (02:15→18:14)
[2016-02-22] MEDS: CLINDAMYCIN 600MG PREMIX IVPB 50 ML IVPB SCH ×3 (02:49→18:13)
[2016-02-22] MEDS ORDERED: PT OWN MED DRAWER 7, Y5N ONE ×5 (06:51→18:23)
[2016-02-22] MEDS: CALCIUM CARBONATE 650 MG TABLET PO SCH ×2 (09:43→21:30)
[2016-02-22] MEDS: ASPIRIN COATED 81 MG TABLET.EC PO SCH (09:43)
[2016-02-22] MEDS: CALCIUM ACETATE 667 MG CAPSULE (FP) PO SCH ×3 (09:43→18:14)
[2016-02-22] MEDS: PREGABALIN 25 MG CAPSULE PO SCH (09:43)
[2016-02-22] MEDS: predniSONE 20 MG TABLET (UD) PO SCH (09:44)
[2016-02-22] MEDS: MUPIROCIN 2% TOPICAL OINTMENT FOR DECOLONIZATION NS SCH ×2 (09:48→21:36)
[2016-02-22] MEDS: PRASUGREL HCL 10 MG TAB PO SCH (09:48)
[2016-02-22] MEDS: DULoxetine HCL 20 MG CAPSULE.DR (FP) PO SCH (09:48)
[2016-02-22] MEDS: ARFORMOTEROL TARTRATE 15 MCG/2 ML VIAL NEB SCH ×2 (11:00→21:50)
--- NOTE | 2016-02-22 11:09 | PN ---
Progress Note, Physician History of Present Illness: Pulmonary Pt awake and aldert and NAD-used BiPAp for part of the night. - Current Medication List Current Medications: Active Medications Albuterol Sulfate (Ventolin 0.083% Nebulizer Soln -) 1 amp NEB Q4H PRN PRN Reason: SHORT OF BREATH/WHEEZING Last Admin: 02/21/16 16:50 Dose: 1 amp Arformoterol Tartrate (Brovana (Restricted To Pulmonology/Resp) -) 1 amp NEB BID [facility] Last Admin: 02/21/16 22:42 Dose: 1 amp Aspirin (Ecotrin -) 81 mg PO DAILY [facility] Last Admin: 02/22/16 09:43 Dose: 81 mg Calcium Acetate (Phoslo -) 667 mg PO TIDCM [facility] Last Admin: 02/22/16 09:43 Dose: 667 mg Calcium Carbonate (Calcium Carbonate -) 1,300 mg PO BID [facility] Last Admin: 02/22/16 09:43 Dose: 1,300 mg Chlorhexidine Gluconate (Hibiclens For Decolonization -) 1 applic TP HS [facility] Last Admin: 02/21/16 21:58 Dose: 1 applic Duloxetine HCl (Cymbalta -) 20 mg PO DAILY [facility] Last Admin: 02/22/16 09:48 Dose: 20 mg Heparin Sodium (Porcine) (Heparin -) 5,000 unit SQ Q8H-IV [facility] Last Admin: 02/22/16 09:44 Dose: 5,000 unit Clindamycin Phosphate (Cleocin 600 Mg Premix Ivpb -) 50 mls @ 100 mls/hr IVPB Q8H-IV [facility] Last Admin: 02/22/16 09:44 Dose: 100 mls/hr Aztreonam 1 gm/ Dextrose 50 mls @ 100 mls/hr IVPB Q8H-IV [facility] Last Admin: 02/22/16 09:48 Dose: 100 mls/hr Mupirocin (Bactroban Ointment (For Decolonization) -) 1 applic NS BID [facility] Stop: 02/23/16 21:59 Last Admin: 02/22/16 09:48 Dose: Not Given Prasugrel (Effient -) 10 mg PO DAILY [facility] Last Admin: 02/22/16 09:48 Dose: 10 mg Prednisone (Deltasone -) 40 mg PO DAILY [facility] Last Admin: 02/22/16 09:44 Dose: 40 mg Pregabalin (Lyrica -) 25 mg PO DAILY [facility] Last Admin: 02/22/16 09:43 Dose: 25 mg Tiotropium [place] (Spiriva -) 18 puff IH DAILY [facility] - Objective Vital Signs: Vital Signs Temperature 97.1 F L 02/22/16 10:00 Pulse Rate 74 02/22/16 10:00 Respiratory Rate 18 02/22/16 10:00 Blood Pressure 159/63 02/22/16 10:00 O2 Sat by Pulse Oximetry (%) 98 02/21/16 23:25 Constitutional: No: No Distress HENT: Yes: Atraumatic, Normocephalic Neck: Yes: Supple, Trachea Midline Cardiovascular: Yes: Regular Rate and Rhythm. No: JVD Respiratory: Yes: CTA Bilaterally Gastrointestinal: Yes: Soft. No: Tenderness Extremities: Yes: Erythema, Other (stasis changes) Edema: Yes Edema: LLE: 1+, RLE: 1+ Neurological: Yes: Alert, Oriented Labs: CBC, BMP 02/21/16 05:00 02/21/16 05:00 INR, PTT INR 1.12 (0.82-1.09) 02/18/16 13:00 Problem List - Problems (1) COPD exacerbation Code(s): J44.1 - CHRONIC OBSTRUCTIVE PULMONARY DISEASE W (ACUTE) EXACERBATION (2) Acute and chronic respiratory failure ([id number]) Code(s): J96.20 - ACUTE AND CHR RESP FAILURE, UNSP W HYPOXIA OR HYPERCAPNIA Qualifiers: Respiratory failure complication: hypoxia and hypercapnia Qualified Code(s): J96.21 - Acute and chronic respiratory failure with hypoxia (3) Acute kidney failure Code(s): N17.9 - ACUTE KIDNEY FAILURE, UNSPECIFIED Qualifiers: Acute renal failure type: unspecified Qualified Code(s): N17.9 - Acute kidney failure, unspecified (4) Chronic kidney disease (CKD) Code(s): N18.9 - CHRONIC KIDNEY DISEASE, UNSPECIFIED Qualifiers: Chronic kidney disease stage: unspecified stage Qualified Code(s): N18.9 - Chronic kidney disease, unspecified (5) Cellulitis Code(s): L03.90 - CELLULITIS, UNSPECIFIED Qualifiers: Site of cellulitis of extremity: lower extremity (6) Hyperkalemia Code(s): E87.5 - HYPERKALEMIA (7) Arteriosclerotic heart disease (ASHD) Code(s): I25.10 - ATHSCL HEART DISEASE OF 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
--- NOTE | 2016-02-22 11:40 | PN ---
Progress Note (short form) - Note Progress Note: Renal Follow up for KARLOS Pt seen and examined at the bedside urine output improved yesterday s/p IV lasix denies any sob, chest pain, abd pain lilly in place Vital Signs Temperature 97.1 F L 02/22/16 10:00 Pulse Rate 74 02/22/16 10:00 Respiratory Rate 18 02/22/16 10:00 Blood Pressure 159/63 02/22/16 10:00 O2 Sat by Pulse Oximetry (%) 98 02/21/16 23:25 Intake & Output 02/19/16 02/20/16 02/21/16 02/22/16 23:59 23:59 23:59 23:59 Intake Total 4500 1750 1490 270 Output Total 450 750 200 Balance 4050 1750 740 70 Weight 326 lb 4.8 oz 331 lb 9.204 oz 320 lb 319 lb 2 oz Gen: NAD CVS: RRR No M/R Lungs: Dec BS throughout the lung rey Abd: Soft NT + Mild distension Ext: > 3+ LE Lymph edema, no cyanosis or clubbing HD Access: Right IJ trialysis catheter Labs pending Current Medications Albuterol Sulfate (Ventolin 0.083% Nebulizer Soln -) 1 amp NEB Q4H PRN PRN Reason: SHORT OF BREATH/WHEEZING Last Admin: 02/21/16 16:50 Dose: 1 amp Arformoterol Tartrate (Brovana (Restricted To Pulmonology/Resp) -) 1 amp NEB BID [facility] Last Admin: 02/21/16 22:42 Dose: 1 amp Aspirin (Ecotrin -) 81 mg PO DAILY [facility] Last Admin: 02/22/16 09:43 Dose: 81 mg Calcium Acetate (Phoslo -) 667 mg PO TIDCM [facility] Last Admin: 02/22/16 09:43 Dose: 667 mg Calcium Carbonate (Calcium Carbonate -) 1,300 mg PO BID [facility] Last Admin: 02/22/16 09:43 Dose: 1,300 mg Chlorhexidine Gluconate (Hibiclens For Decolonization -) 1 applic TP HS [facility] Last Admin: 02/21/16 21:58 Dose: 1 applic Duloxetine HCl (Cymbalta -) 20 mg PO DAILY [facility] Last Admin: 02/22/16 09:48 Dose: 20 mg Heparin Sodium (Porcine) (Heparin -) 5,000 unit SQ Q8H-IV [facility] Last Admin: 02/22/16 09:44 Dose: 5,000 unit Clindamycin Phosphate (Cleocin 600 Mg Premix Ivpb -) 50 mls @ 100 mls/hr IVPB Q8H-IV [facility] Last Admin: 02/22/16 09:44 Dose: 100 mls/hr Aztreonam 1 gm/ Dextrose 50 mls @ 100 mls/hr IVPB Q8H-IV [facility] Last Admin: 02/22/16 09:48 Dose: 100 mls/hr Mupirocin (Bactroban Ointment (For Decolonization) -) 1 applic NS BID [facility] Stop: 02/23/16 21:59 Last Admin: 02/22/16 09:48 Dose: Not Given Prasugrel (Effient -) 10 mg PO DAILY [facility] Last Admin: 02/22/16 09:48 Dose: 10 mg Prednisone (Deltasone -) 40 mg PO DAILY [facility] Last Admin: 02/22/16 09:44 Dose: 40 mg Pregabalin (Lyrica -) 25 mg PO DAILY [facility] Last Admin: 02/22/16 09:43 Dose: 25 mg Tiotropium [place] (Spiriva -) 1 puff IH DAILY [facility] A/P 75 year old Gentleman with PMhx of CKD Stage 3 (baseline Cr 1.9), Hx of Nephrolithiasis, Hypertension, COPD, CHF, PVD, Chronic LE lymph edema who was sent into the ED from wound care for increased lethargy and decreased urination for several days with KARLOS with BUN/Cr of 115/7.2 and K of 6.5 #Acute Renal Failure on CKD Initial Urine studies showed pre-renal etiology -? Cardio-renal syndrome Repeat urine studies pending Awaiting todays labs results to determine if HD is needed today Continue strict I and O Avoid nsaids dose all meds for Cr Cl less then 10 #Anemia Trend CBC #Resp Acidosis/COPD Management as per pulmonary BIPAP as needed pt with incomplete metabolic compensation likely secondary to renal failure #Hypocalcemia/Hyperphosphatemia Corrected CA is 7.76 Check PTH-pending continue Phos low and Calcium Carbonate Melvin Johnson DO
[2016-02-22 11:56] LABS: MCH 24.9 pg (25.7-33.7); MCHC 31.8 g/dl (32.0-35.9); MEAN CELL VOLUME 78.4 fl (80-96); MEAN PLT VOLUME 7.5 fl (7.5-11.1); PLATELET COUNT 178 K/MM3 (134-434); RDW 16.7 % (11.9-15.9); WHITE BLOOD COUNT 5.4 K/mm3 (4.0-10.0)
[2016-02-22 11:59] LABS: URINE APPEARANCE SLCLOUDY; URINE BILIRUBIN NEGATIVE (NEGATIVE); URINE COLOR YELLOW; URINE GLUCOSE (UA) NEGATIVE (NEGATIVE); URINE KETONE NEGATIVE (NEGATIVE); URINE LEUK ESTERASE NEGATIVE (NEGATIVE); URINE NITRITE NEGATIVE (NEGATIVE); URINE UROBILINOGEN NEGATIVE E.U./dl (0.2-1.0)
[2016-02-22 12:01] LABS: URINE BLOOD 3+ (NEGATIVE); URINE PROTEIN 2+ (NEGATIVE)
[2016-02-22 12:06] LABS: GRANULAR CASTS 1 /lpf; URINE MUCUS RARE; URINE RBC 232 /hpf (0-3); URINE WBC 1 /hpf (3-5)
[2016-02-22 12:09] LABS: ALBUMIN 2.7 g/dl (3.4-5.0); BILIRUBIN,TOTAL 0.3 mg/dL (0.2-1.0); CREATININE 6.1 mg/dL (0.7-1.3); TOT PROT 5.5 g/dl (6.4-8.2)
[2016-02-22] MEDS: TIOTROPIUM BROMIDE 18 MCG/INH (DEVICE W/ 5 CAPSULES) IH SCH (13:14)
--- NOTE | 2016-02-22 14:04 | PN ---
Progress Note, Physician History of Present Illness: stable had a coughing episode while eating - Current Medication List Current Medications: Active Medications Albuterol Sulfate (Ventolin 0.083% Nebulizer Soln -) 1 amp NEB Q4H PRN PRN Reason: SHORT OF BREATH/WHEEZING Last Admin: 02/21/16 16:50 Dose: 1 amp Arformoterol Tartrate (Brovana (Restricted To Pulmonology/Resp) -) 1 amp NEB BID [facility] Last Admin: 02/22/16 11:00 Dose: 1 amp Aspirin (Ecotrin -) 81 mg PO DAILY [facility] Last Admin: 02/22/16 09:43 Dose: 81 mg Calcium Acetate (Phoslo -) 667 mg PO TIDCM [facility] Last Admin: 02/22/16 12:30 Dose: 667 mg Calcium Carbonate (Calcium Carbonate -) 1,300 mg PO BID [facility] Last Admin: 02/22/16 09:43 Dose: 1,300 mg Chlorhexidine Gluconate (Hibiclens For Decolonization -) 1 applic TP HS [facility] Last Admin: 02/21/16 21:58 Dose: 1 applic Duloxetine HCl (Cymbalta -) 20 mg PO DAILY [facility] Last Admin: 02/22/16 09:48 Dose: 20 mg Heparin Sodium (Porcine) (Heparin -) 5,000 unit SQ Q8H-IV [facility] Last Admin: 02/22/16 09:44 Dose: 5,000 unit Clindamycin Phosphate (Cleocin 600 Mg Premix Ivpb -) 50 mls @ 100 mls/hr IVPB Q8H-IV [facility] Last Admin: 02/22/16 09:44 Dose: 100 mls/hr Aztreonam 1 gm/ Dextrose 50 mls @ 100 mls/hr IVPB Q8H-IV [facility] Last Admin: 02/22/16 09:48 Dose: 100 mls/hr Mupirocin (Bactroban Ointment (For Decolonization) -) 1 applic NS BID [facility] Stop: 02/23/16 21:59 Last Admin: 02/22/16 09:48 Dose: Not Given Prasugrel (Effient -) 10 mg PO DAILY [facility] Last Admin: 02/22/16 09:48 Dose: 10 mg Prednisone (Deltasone -) 40 mg PO DAILY [facility] Last Admin: 02/22/16 09:44 Dose: 40 mg Pregabalin (Lyrica -) 25 mg PO DAILY [facility] Last Admin: 02/22/16 09:43 Dose: 25 mg Tiotropium [place] (Spiriva -) 1 puff IH DAILY [facility] Last Admin: 02/22/16 13:14 Dose: 1 inh - Objective Vital Signs: Vital Signs Temperature 97.1 F L 02/22/16 10:00 Pulse Rate 77 02/22/16 12:27 Respiratory Rate 18 02/22/16 10:00 Blood Pressure 159/63 02/22/16 10:00 O2 Sat by Pulse Oximetry (%) 96 02/22/16 12:27 Constitutional: Yes: No Distress, Calm Cardiovascular: Yes: Regular Rate and Rhythm Respiratory: Yes: Regular, Poor Air Entry, Rhonchi Gastrointestinal: Yes: Normal Bowel Sounds, Soft Extremities: Yes: Other Wound/Incision: Yes: Clean/Dry (site of dialysis catheter) Neurological: Yes: Alert, Oriented Psychiatric: Yes: Alert Labs: CBC, BMP 02/22/16 10:30 02/22/16 10:30 INR, PTT INR 1.12 (0.82-1.09) 02/18/16 13:00 Assessment/Plan 75 year-old man with a PMH of HTN, PVD, COPD, CKD (baseline Cr 1.9), nephrolithiasis, and chronic LE lymphedema. Admitted in acute renal failure. Acute on chronic renal failure Hyperkalemia Sepsis s Hypertension Peripheral vascular disease Hypercarbic respiratory failure COPD bilateral cellulitis of the legs plan continue current abx rest as per primary if patient has any breathing issues xray chest will start deescalating abx from tomorrow
--- NOTE | 2016-02-22 15:36 | PN ---
Physical Exam: SUBJECTIVE: Patient seen and examined at bedside. Pt feels better today. Used bipap on and off overnight. He denies trouble breathing today. He denies CP, palpitations, N/V/F/C, abdominal pain. OBJECTIVE: Vital Signs Temperature 97.1 F L 02/22/16 10:00 Pulse Rate 77 02/22/16 12:27 Respiratory Rate 18 02/22/16 10:00 Blood Pressure 159/63 02/22/16 10:00 O2 Sat by Pulse Oximetry (%) 96 02/22/16 12:27 GENERAL: The patient is awake, alert, and fully oriented, in no acute distress. Laying in bed comfortably on NC. HEAD: Normal with no signs of trauma. EYES: conjunctiva clear. No ptosis. ENT: moist mucous membranes. NECK: Trachea midline, full range of motion. LUNGS: Diminished breath sounds. Did not appreciate crackles or wheezing. HEART: Distant heart sounds. Regular rate and rhythm, S1, S2 without murmur, rub or gallop. ABDOMEN: Soft, obese, nontender, nondistended, normoactive bowel sounds, no guarding, no rebound, no hepatosplenomegaly, no masses. EXTREMITIES: 2+ pulses, warm, well-perfused, B/L cellulitic changes, B/L LE pitting edema. NEUROLOGICAL: Normal speech, gait not observed. PSYCH: Normal mood, normal affect. SKIN: Warm, dry, normal turgor. Laboratory Results - last 24 hr 02/22/16 02/22/16 02/22/16 10:30 10:30 10:30 WBC 5.4 RBC 2.80 L Hgb 7.0 L Hct 21.9 L MCV 78.4 L MCHC 31.8 L RDW 16.7 H Plt Count 178 MPV 7.5 Sodium 145 Potassium 4.8 Chloride 107 Carbon Dioxide 29 Anion Gap 9 BUN 108 H* D Creatinine 6.1 H Creat Clearance w eGFR 9.09 Random Glucose 107 H Calcium 7.0 L Total Bilirubin 0.3 D AST 15 ALT 28 Alkaline Phosphatase 69 Total Protein 5.5 L Albumin 2.7 L Urine Color Yellow Urine Appearance Slcloudy Urine pH 5.0 Ur Specific [place] 1.015 Urine Protein 2+ H Urine Glucose (UA) Negative Urine Ketones Negative Urine Blood 3+ H Urine Nitrite Negative Urine Bilirubin Negative Urine Urobilinogen Negative Ur Leukocyte Esterase Negative Urine RBC 232 Urine WBC 1 Granular Casts 1 Urine Mucus Rare U Random Total Protein Ur Random Urea Nitrogn Urine Creatinine 02/22/16 02/22/16 10:30 10:30 WBC RBC Hgb Hct MCV MCHC RDW Plt Count MPV Sodium Potassium Chloride Carbon Dioxide Anion Gap BUN Creatinine Creat Clearance w eGFR Random Glucose Calcium Total Bilirubin AST ALT Alkaline Phosphatase Total Protein Albumin Urine Color Urine Appearance Urine pH Ur Specific [place] Urine Protein Urine Glucose (UA) Urine Ketones Urine Blood Urine Nitrite Urine Bilirubin Urine Urobilinogen Ur Leukocyte Esterase Urine RBC Urine WBC Granular Casts Urine Mucus U Random Total Protein 128 H Ur Random Urea Nitrogn 500 Urine Creatinine 180.0 Microbiology 02/18/16 19:15 Blood - Peripheral Venous Blood Culture - Preliminary NO GROWTH OBTAINED AFTER 72 HOURS, INCUBATION TO CONTINUE FOR 2 DAYS. 02/18/16 19:15 Blood - Peripheral Venous Blood Culture - Preliminary NO GROWTH OBTAINED AFTER 72 HOURS, INCUBATION TO CONTINUE FOR 2 DAYS. 02/18/16 18:10 Urine - Urine Clean Catch Urine Culture - Final NO GROWTH OBTAINED Active Medications Generic Name Dose Route Start Last Admin Trade Name Freq PRN Reason Stop Dose Admin Albuterol Sulfate 1 amp 02/18/16 16:41 02/21/16 16:50 Ventolin 0.083% Nebulizer Soln - NEB 1 amp Q4H PRN Administration SHORT OF BREATH/WHEEZING Arformoterol Tartrate 1 amp 02/18/16 22:00 02/22/16 11:00 Brovana (Restricted To Pulmonology/Resp) - NEB 1 amp BID [facility] Administration Aspirin 81 mg 02/18/16 20:45 02/22/16 09:43 Ecotrin - PO 81 mg DAILY [facility] Administration Calcium Acetate 667 mg 02/19/16 12:00 02/22/16 12:30 Phoslo - PO 667 mg TIDCM [facility] Administration Calcium Carbonate 1,300 mg 02/20/16 13:00 02/22/16 09:43 Calcium Carbonate - PO 1,300 mg BID [facility] Administration Chlorhexidine Gluconate 1 applic 02/18/16 22:00 02/21/16 21:58 Hibiclens For Decolonization - TP 1 applic HS [facility] Administration Duloxetine HCl 20 mg 02/18/16 20:45 02/22/16 09:48 Cymbalta - PO 20 mg DAILY [facility] Administration Heparin Sodium (Porcine) 5,000 unit 02/18/16 20:15 02/22/16 09:44 Heparin - SQ 5,000 unit Q8H-IV [facility] Administration Clindamycin Phosphate 50 mls @ 100 mls/hr 02/18/16 20:15 02/22/16 09:44 Cleocin 600 Mg Premix Ivpb - IVPB 100 mls/hr Q8H-IV [facility] Administration Aztreonam 1 gm/ Dextrose 50 mls @ 100 mls/hr 02/19/16 10:00 02/22/16 09:48 IVPB 100 mls/hr Q8H-IV [facility] Administration Mupirocin 1 applic 02/18/16 22:00 02/22/16 09:48 Bactroban Ointment (For Decolonization) - NS 02/23/16 21:59 Not Given BID [facility] Prasugrel 10 mg 02/18/16 20:45 02/22/16 09:48 Effient - PO 10 mg DAILY [facility] Administration Prednisone 40 mg 02/20/16 10:00 02/22/16 09:44 Deltasone - PO 40 mg DAILY [facility] Administration Pregabalin 25 mg 02/18/16 20:45 02/22/16 09:43 Lyrica - PO 25 mg DAILY [facility] Administration Tiotropium [place] 1 puff 02/22/16 11:15 02/22/16 13:14 Spiriva - IH 1 inh DAILY [facility] Administration ASSESSMENT/PLAN: 75 year-old man with a PMH of HTN, PVD, COPD, CKD (baseline Cr 1.9), nephrolithiasis, and chronic LE lymphedema. Admitted for acute renal failure ( hyperkalemia) and respiratory distress. 1. Acute on chronic renal failure -BUN/Cr 108/6.1 (baseline 1.8) -urine 750 ml yesterday, 200 ml so far today -HD as per nephrology 2. Acute Hyperkalemia -4.8 today, improving s/p HD -on HD -f/u bmp 3. Acute COPD exacerbation with hypercapnic respiratory failure -Bipap as needed -NC O2 5L. Still oxygenating well. -c/w prednisone 40 mg PO qd, brovana, albuterol PRN 4. Sepsis secondary to B/L lower extremity cellulitis -improved -BCx (-) X 72 hours; UCx negative -ID on board -c/w clindamycin 600 mg iv q8h -c/w aztreonam 1gm q8h 5. HTN -off anti-hypertensives for now 6. Hx of Depression -c/w cymbalta 7. CAD -prasugrel 10 mg PO qd 8. FEN -hyperkalemia, high normal today - on HD -corrected Ca - 8.04 -hypocalcemia - calcium carbonate 9. Dispo: monitor on floors. Problem List - Problems (1) Acute kidney failure Code(s): N17.9 - ACUTE KIDNEY FAILURE, UNSPECIFIED Qualifiers: Acute renal failure type: unspecified Qualified Code(s): N17.9 - Acute kidney failure, unspecified (2) COPD exacerbation Code(s): J44.1 - CHRONIC OBSTRUCTIVE PULMONARY DISEASE W (ACUTE) EXACERBATION (3) Hyperkalemia Code(s): E87.5 - HYPERKALEMIA (4) Acute and chronic respiratory failure ([id number]) Code(s): J96.20 - ACUTE AND CHR RESP FAILURE, UNSP W HYPOXIA OR HYPERCAPNIA Qualifiers: Respiratory failure complication: hypoxia and hypercapnia Qualified Code(s): J96.21 - Acute and chronic respiratory failure with hypoxia (5) Acute exacerbation of chronic obstructive pulmonary disease (COPD) Code(s): J44.1 - CHRONIC OBSTRUCTIVE PULMONARY DISEASE W (ACUTE) EXACERBATION (6) Acute on chronic diastolic (congestive) heart failure Code(s): I50.33 - ACUTE ON CHRONIC DIASTOLIC (CONGESTIVE) HEART FAILURE (7) Anxiety and depression Code(s): F41.9 - ANXIETY DISORDER, UNSPECIFIED F32.9 - MAJOR DEPRESSIVE DISORDER, SINGLE EPISODE, UNSPECIFIED (8) Cellulitis Code(s): L03.90 - CELLULITIS, UNSPECIFIED Qualifiers: Site of cellulitis of extremity: lower extremity (9) Chronic kidney disease (CKD) Code(s): N18.9 - CHRONIC KIDNEY DISEASE, UNSPECIFIED Qualifiers: Chronic kidney disease stage: unspecified stage Qualified Code(s): N18.9 - Chronic kidney disease, unspecified (10) Diastolic CHF Code(s): I50.30 - UNSPECIFIED DIASTOLIC (CONGESTIVE) HEART FAILURE (11) Hyperlipidemia Code(s): E78.5 - HYPERLIPIDEMIA, UNSPECIFIED (12) Hypertension Code(s): I10 - ESSENTIAL (PRIMARY) HYPERTENSION (13) Obesities, morbid Code(s): E66.01 - MORBID (SEVERE) OBESITY DUE TO EXCESS CALORIES Qualifiers: Obesity type: with alveolar hypoventilation Qualified Code(s): E66.2 - Morbid (severe) obesity with alveolar hypoventilation (14) Respiratory failure with hypoxia and hypercapnia Code(s): J96.91 - RESPIRATORY FAILURE, UNSPECIFIED WITH HYPOXIA J96.92 - RESPIRATORY FAILURE, UNSPECIFIED WITH HYPERCAPNIA Qualifiers: Chronicity: acute on chronic Qualified Code(s): J96.21 - Acute and chronic respiratory failure with hypoxia; J96.22 - Acute and chronic respiratory failure with hypercapnia (15) Shortness of breath Code(s): R06.02 - SHORTNESS OF BREATH Visit type - Emergency Visit Emergency Visit: No - New Patient This patient is new to me today: No - Critical Care Critical Care patient: No
--- NOTE | 2016-02-22 21:12 | PN ---
Teaching Attending Note Name of Resident: Freddie Strickland ATTENDING PHYSICIAN STATEMENT I saw and evaluated the patient. I reviewed the resident's note and discussed the case with the resident. I agree with the resident's findings and plan as documented. SUBJECTIVE: OBJECTIVE: Vital Signs Temperature 98.4 F 02/22/16 14:32 Pulse Rate 72 02/22/16 18:20 Respiratory Rate 18 02/22/16 18:20 Blood Pressure 172/78 02/22/16 18:20 O2 Sat by Pulse Oximetry (%) 96 02/22/16 12:27 GENERAL: The patient is awake, alert, and fully oriented, in no acute distress. HEAD: Normal with no signs of trauma. EYES: PERRL, extraocular movements intact, sclera anicteric, conjunctiva clear. No ptosis. ENT: Ears normal, on 3l NC , oropharynx clear without exudates, moist mucous membranes. NECK: Trachea midline, full range of motion, supple. LUNGS: decreased BS BL otherwise CTABL , no wheezes, no crackles, no accessory muscle use. HEART: Regular rate and rhythm, S1, S2 without murmur, rub or gallop. ABDOMEN: Soft, nontender, nondistended, normoactive bowel sounds, no guarding, no rebound, no hepatosplenomegaly, no masses. EXTREMITIES: 2+ pulses, warm, well-perfused, no edema. NEUROLOGICAL: Cranial nerves II through XII grossly intact. Normal speech, gait not observed. PSYCH: Normal mood, normal affect. SKIN: Warm, dry, normal turgor, no rashes or lesions noted CBCD WBC 5.4 K/mm3 (4.0-10.0) 02/22/16 10:30 RBC 2.80 M/mm3 (4.00-5.60) L 02/22/16 10:30 Hgb 7.0 GM/dL (11.7-16.9) L 02/22/16 10:30 Hct 21.9 % (35.4-49) L 02/22/16 10:30 MCV 78.4 fl (80-96) L 02/22/16 10:30 MCHC 31.8 g/dl (32.0-35.9) L 02/22/16 10:30 RDW 16.7 % (11.9-15.9) H 02/22/16 10:30 Plt Count 178 K/MM3 (134-434) 02/22/16 10:30 MPV 7.5 fl (7.5-11.1) 02/22/16 10:30 CMP Sodium 145 mmol/L (136-145) 02/22/16 10:30 Potassium 4.8 mmol/L (3.5-5.1) 02/22/16 10:30 Chloride 107 mmol/L (98-107) 02/22/16 10:30 Carbon Dioxide 29 mmol/L (21-32) 02/22/16 10:30 Anion Gap 9 (8-16) 02/22/16 10:30 BUN 108 mg/dL (7-18) H* D 02/22/16 10:30 Creatinine 6.1 mg/dL (0.7-1.3) H 02/22/16 10:30 Creat Clearance w eGFR 9.09 (>60) 02/22/16 10:30 Random Glucose 107 mg/dL (74-106) H 02/22/16 10:30 Calcium 7.0 mg/dL (8.5-10.1) L 02/22/16 10:30 Total Bilirubin 0.3 mg/dL (0.2-1.0) D 02/22/16 10:30 AST 15 U/L (15-37) 02/22/16 10:30 ALT 28 U/L (12-78) 02/22/16 10:30 Alkaline Phosphatase 69 U/L (45-117) 02/22/16 10:30 Total Protein 5.5 g/dl (6.4-8.2) L 02/22/16 10:30 Albumin 2.7 g/dl (3.4-5.0) L 02/22/16 10:30 CARDIAC ENZYMES Creatine Kinase 76 IU/L (39-308) 02/19/16 05:30 Troponin I < 0.02 ng/ml (0.015-0.045) 02/19/16 21:50 Current Medications Generic Name Dose Route Start Last Admin Trade Name Freq PRN Reason Stop Dose Admin Albuterol Sulfate 1 amp 02/18/16 16:41 02/21/16 16:50 Ventolin 0.083% Nebulizer Soln - NEB 1 amp Q4H PRN Administration SHORT OF BREATH/WHEEZING Arformoterol Tartrate 1 amp 02/18/16 22:00 02/22/16 11:00 Brovana (Restricted To Pulmonology/Resp) - NEB 1 amp BID LESLEE Administration Aspirin 81 mg 02/18/16 20:45 02/22/16 09:43 Ecotrin - PO 81 mg DAILY LESLEE Administration Calcium Acetate 667 mg 02/19/16 12:00 02/22/16 18:14 Phoslo - PO 667 mg TIDCM LESLEE Administration Calcium Carbonate 1,300 mg 02/20/16 13:00 02/22/16 09:43 Calcium Carbonate - PO 1,300 mg BID LESLEE Administration Chlorhexidine Gluconate 1 applic 02/18/16 22:00 02/21/16 21:58 Hibiclens For Decolonization - TP 1 applic HS LESLEE Administration Duloxetine HCl 20 mg 02/18/16 20:45 02/22/16 09:48 Cymbalta - PO 20 mg DAILY LESLEE Administration Heparin Sodium (Porcine) 5,000 unit 02/18/16 20:15 02/22/16 18:14 Heparin - SQ 5,000 unit Q8H-IV LESLEE Administration Clindamycin Phosphate 50 mls @ 100 mls/hr 02/18/16 20:15 02/22/16 18:13 Cleocin 600 Mg Premix Ivpb - IVPB 100 mls/hr Q8H-IV LESLEE Administration Aztreonam 1 gm/ Dextrose 50 mls @ 100 mls/hr 02/19/16 10:00 02/22/16 18:14 IVPB 100 mls/hr Q8H-IV LESLEE Administration Mupirocin 1 applic 02/18/16 22:00 02/22/16 09:48 Bactroban Ointment (For Decolonization) - NS 02/23/16 21:59 Not Given BID LESLEE Prasugrel 10 mg 02/18/16 20:45 02/22/16 09:48 Effient - PO 10 mg DAILY LESLEE Administration Prednisone 40 mg 02/20/16 10:00 02/22/16 09:44 Deltasone - PO 40 mg DAILY ELSLEE Administration Pregabalin 25 mg 02/18/16 20:45 02/22/16 09:43 Lyrica - PO 25 mg DAILY LESLEE Administration Tiotropium [place] 1 puff 02/22/16 11:15 02/22/16 13:14 Spiriva - IH 1 inh DAILY LESLEE Administration Medication Instructions Recorded Acetaminophen W/ Codeine #3 1 tab PO Q6H PRN 02/18/16 [Tylenol # 3 -] Albuterol 0.083% Nebulizer Soni 1 amp NEB ASDIR PRN 02/18/16 [Ventolin 0.083% Nebulizer Soln -] Aspirin [Ecotrin] 81 mg PO DAILY 02/18/16 Duloxetine HCl 20 mg PO DAILY 02/18/16 Furosemide 20 mg PO HS 02/18/16 Furosemide 40 mg PO DAILY 02/18/16 Hydralazine HCl [Apresoline -] 50 mg PO HS 02/18/16 Prasugrel HCl [Effient] 10 mg PO DAILY 02/18/16 Prednisone 5 mg PO DAILY 02/18/16 Pregabalin [Lyrica] 25 mg PO DAILY 02/18/16 ASSESSMENT AND PLAN: 75 year-old man with a PMHx of HTN, PVD, COPD, CKD (baseline Cr 1.9), nephrolithiasis, and chronic LE lymphedema. Admitted for acute renal failure. #Acute on chronic renal failure on HD ,with (baseline 1.8 Cr) presented with 6.5 -->7.2-->7.5-->6.3--6.1 today ,still anuric, further managment as per the behavior therapist . on HD s/p IJ line right side of the neck. # s/p Acute Hyperkalemia s/p HD ,presented with K= 6.5-7.2-->7.5-->6.3-->4.8 today s/p calcium, kayexelate, insulin, sodium bicarb in ED, continue to monitor potassium/bmp. # Acute COPD exacerbation with hypercapnic respiratory failure on 3l NC now , Bipap prn . # s/p Acute Sepsis due to bilateral lower extremity cellulitis of lower extremities( anaerobic smell) ; ID on the case for further care patient was found to be hypothermic on admission with rectal temp of 95 , s/ p Darinel Hugger placement, patient was started on aztreonam (allergic to Penicillin) and clindamycin for MRSA coverage. ID consult appreciated, continue IV antibiotics #Hypertension uncontrolled off BP meds for now. further managment per Dr Johnson #Peripheral vascular disease on Effient continue # Hx of Depression on Cymbalta DVT px: Heparin on HD now
[2016-02-22] MEDS: CHLORHEXIDINE GLUCONATE 4% CLEANSER FOR DECOLONIZATION TP SCH (21:36)
[2016-02-23] MEDS: CLINDAMYCIN 600MG PREMIX IVPB 50 ML IVPB SCH ×2 (01:45→10:47)
[2016-02-23] MEDS: AZTREONAM 1 GM in DEXTROSE 5%-WATER - 50 ML IVPB SCH ×3 (02:32→19:07)
[2016-02-23] MEDS: HEPARIN NA (PORCINE) 5,000 UNITS/ML 1ML VIAL SQ SCH ×3 (02:32→17:31)
[2016-02-23 07:16] LABS: BASOPHIL 0.1 % (0-2.0); EOSINOPHIL 0.4 % (0-4.5); MCH 24.9 pg (25.7-33.7); MCHC 32.2 g/dl (32.0-35.9); MEAN CELL VOLUME 77.4 fl (80-96); MEAN PLT VOLUME 7.6 fl (7.5-11.1); NEUTROPHILS 69.6 % (42.8-82.8); PLATELET COUNT 148 K/MM3 (134-434); RDW 16.7 % (11.9-15.9); WHITE BLOOD COUNT 6.4 K/mm3 (4.0-10.0)
[2016-02-23 07:42] LABS: ALBUMIN 2.8 g/dl (3.4-5.0); CALCIUM 7.1 mg/dL (8.5-10.1); MAGNESIUM 2.3 mg/dL (1.8-2.4)
[2016-02-23 07:46] LABS: BILIRUBIN,TOTAL 0.4 mg/dL (0.2-1.0); CREATININE 4.7 mg/dL (0.7-1.3); PHOSPHOROUS 5.4 mg/dL (2.5-4.9); TOT PROT 5.6 g/dl (6.4-8.2)
[2016-02-23] MEDS: CALCIUM ACETATE 667 MG CAPSULE (FP) PO SCH ×3 (08:33→17:30)
[2016-02-23] MEDS: ARFORMOTEROL TARTRATE 15 MCG/2 ML VIAL NEB SCH ×2 (09:10→22:20)
[2016-02-23] MEDS: MUPIROCIN 2% TOPICAL OINTMENT FOR DECOLONIZATION NS SCH (10:38)
[2016-02-23] MEDS ORDERED: PT OWN MED DRAWER 7, Y5N ONE ×2 (10:43→10:59)
[2016-02-23] MEDS: PREGABALIN 25 MG CAPSULE PO SCH (10:49)
[2016-02-23] MEDS: ASPIRIN COATED 81 MG TABLET.EC PO SCH (10:49)
[2016-02-23] MEDS: DULoxetine HCL 20 MG CAPSULE.DR (FP) PO SCH (10:50)
[2016-02-23] MEDS: predniSONE 20 MG TABLET (UD) PO SCH (10:50)
[2016-02-23] MEDS: CALCIUM CARBONATE 650 MG TABLET PO SCH ×2 (10:50→21:48)
[2016-02-23] MEDS: PRASUGREL HCL 10 MG TAB PO SCH (10:50)
[2016-02-23] MEDS: TIOTROPIUM BROMIDE 18 MCG/INH (DEVICE W/ 5 CAPSULES) IH SCH (10:51)
--- NOTE | 2016-02-23 12:03 | PN ---
Progress Note (short form) - Note Progress Note: Renal Follow up for KARLOS Pt seen and examined at the bedside no acute complaints had cough overnight that was helped with cough medication denies any sob, chest pain s/p dialysis yesterday with 3kg UF Vital Signs Temperature 98.1 F 02/23/16 06:00 Pulse Rate 74 02/23/16 09:10 Respiratory Rate 22 02/23/16 06:00 Blood Pressure 170/72 02/23/16 06:00 O2 Sat by Pulse Oximetry (%) 92 L 02/23/16 09:10 Intake & Output 02/20/16 02/21/16 02/22/16 02/23/16 23:59 23:59 23:59 23:59 Intake Total 1750 1490 1120 100 Output Total 750 700 200 Balance 1750 740 420 -100 Weight 331 lb 9.204 oz 320 lb 319 lb 2 oz 312 lb 8 oz Gen: NAD CVS: RRR No M/R Lungs: Dec BS throughout the lung rey Abd: Soft NT + Mild distension Ext: > 3+ LE Lymph edema, no cyanosis or clubbing HD Access: Right IJ trialysis catheter CBC, BMP 02/23/16 06:00 02/23/16 06:00 Laboratory Tests 02/23/16 06:00 Calcium 7.1 L Phosphorus 5.4 H Magnesium 2.3 Albumin 2.8 L Current Medications Albuterol Sulfate (Ventolin 0.083% Nebulizer Soln -) 1 amp NEB Q4H PRN PRN Reason: SHORT OF BREATH/WHEEZING Last Admin: 02/21/16 16:50 Dose: 1 amp Arformoterol Tartrate (Brovana (Restricted To Pulmonology/Resp) -) 1 amp NEB BID [facility] Last Admin: 02/23/16 09:10 Dose: 1 amp Aspirin (Ecotrin -) 81 mg PO DAILY [facility] Last Admin: 02/23/16 10:49 Dose: 81 mg Calcium Acetate (Phoslo -) 667 mg PO TIDCM [facility] Last Admin: 02/23/16 08:33 Dose: 667 mg Calcium Carbonate (Calcium Carbonate -) 1,300 mg PO BID [facility] Last Admin: 02/23/16 10:50 Dose: 1,300 mg Chlorhexidine Gluconate (Hibiclens For Decolonization -) 1 applic TP HS [facility] Last Admin: 02/22/16 21:36 Dose: 1 applic Duloxetine HCl (Cymbalta -) 20 mg PO DAILY [facility] Last Admin: 02/23/16 10:50 Dose: 20 mg Guaifenesin (Diabetic Tussin Dm -) 5 ml PO Q4H PRN PRN Reason: COUGH Heparin Sodium (Porcine) (Heparin -) 5,000 unit SQ Q8H-IV [facility] Last Admin: 02/23/16 10:50 Dose: 5,000 unit Clindamycin Phosphate (Cleocin 600 Mg Premix Ivpb -) 50 mls @ 100 mls/hr IVPB Q8H-IV LESLEE Last Admin: 02/23/16 10:47 Dose: 100 mls/hr Aztreonam 1 gm/ Dextrose 50 mls @ 100 mls/hr IVPB Q8H-IV [facility] Last Admin: 02/23/16 10:51 Dose: 100 mls/hr Mupirocin (Bactroban Ointment (For Decolonization) -) 1 applic NS BID [facility] Stop: 02/23/16 21:59 Last Admin: 02/23/16 10:38 Dose: Not Given Prasugrel (Effient -) 10 mg PO DAILY [facility] Last Admin: 02/23/16 10:50 Dose: 10 mg Prednisone (Deltasone -) 40 mg PO DAILY [facility] Last Admin: 02/23/16 10:50 Dose: 40 mg Pregabalin (Lyrica -) 25 mg PO DAILY [facility] Last Admin: 02/23/16 10:49 Dose: 25 mg Tiotropium [place] (Spiriva -) 1 puff IH DAILY [facility] Last Admin: 02/23/16 10:51 Dose: 1 inh A/P 75 year old Gentleman with PMhx of CKD Stage 3 (baseline Cr 1.9), Hx of Nephrolithiasis, Hypertension, COPD, CHF, PVD, Chronic LE lymph edema who was sent into the ED from wound care for increased lethargy and decreased urination for several days with KARLOS with BUN/Cr of 115/7.2 and K of 6.5 #Acute Renal Failure on CKD Renal function w/o significnat improvement to this point urine output was improved yesterday s/p HD yesterday trend BUN/Cr D/c lilly and trial of void today Dose all meds for Cr Cl less then 10 Steroids also likely contributing to high BUN - no signs of uremia #Resp Acidosis/COPD Management as per pulmonary BIPAP as needed pt with incomplete metabolic compensation likely secondary to renal failure #Hypocalcemia/Hyperphosphatemia Corrected CA is ~ 8 Check PTH-pending continue Phos low and Calcium Carbonate Melvin Johnson DO
--- NOTE | 2016-02-23 12:46 | PN ---
Progress Note, Physician History of Present Illness: Pulmonary Pt alert and oriented NAD. No dyspnea. - Current Medication List Current Medications: Active Medications Albuterol Sulfate (Ventolin 0.083% Nebulizer Soln -) 1 amp NEB Q4H PRN PRN Reason: SHORT OF BREATH/WHEEZING Last Admin: 02/21/16 16:50 Dose: 1 amp Arformoterol Tartrate (Brovana (Restricted To Pulmonology/Resp) -) 1 amp NEB BID ON [facility] Last Admin: 02/23/16 09:10 Dose: 1 amp Aspirin (Ecotrin -) 81 mg PO DAILY [facility] Last Admin: 02/23/16 10:49 Dose: 81 mg Calcium Acetate (Phoslo -) 667 mg PO TIDCM [facility] Last Admin: 02/23/16 12:13 Dose: 667 mg Calcium Carbonate (Calcium Carbonate -) 1,300 mg PO BID [facility] Last Admin: 02/23/16 10:50 Dose: 1,300 mg Chlorhexidine Gluconate (Hibiclens For Decolonization -) 1 applic TP HS [facility] Last Admin: 02/22/16 21:36 Dose: 1 applic Duloxetine HCl (Cymbalta -) 20 mg PO DAILY [facility] Last Admin: 02/23/16 10:50 Dose: 20 mg Guaifenesin (Diabetic Tussin Dm -) 5 ml PO Q4H PRN PRN Reason: COUGH Heparin Sodium (Porcine) (Heparin -) 5,000 unit SQ Q8H-IV [facility] Last Admin: 02/23/16 10:50 Dose: 5,000 unit Clindamycin Phosphate (Cleocin 600 Mg Premix Ivpb -) 50 mls @ 100 mls/hr IVPB Q8H-IV LESLEE Last Admin: 02/23/16 10:47 Dose: 100 mls/hr Aztreonam 1 gm/ Dextrose 50 mls @ 100 mls/hr IVPB Q8H-IV [facility] Last Admin: 02/23/16 10:51 Dose: 100 mls/hr Mupirocin (Bactroban Ointment (For Decolonization) -) 1 applic NS BID [facility] Stop: 02/23/16 21:59 Last Admin: 02/23/16 10:38 Dose: Not Given Prasugrel (Effient -) 10 mg PO DAILY [facility] Last Admin: 02/23/16 10:50 Dose: 10 mg Prednisone (Deltasone -) 40 mg PO DAILY [facility] Last Admin: 02/23/16 10:50 Dose: 40 mg Pregabalin (Lyrica -) 25 mg PO DAILY [facility] Last Admin: 02/23/16 10:49 Dose: 25 mg Tiotropium [place] (Spiriva -) 1 puff IH DAILY [facility] Last Admin: 02/23/16 10:51 Dose: 1 inh - Objective Vital Signs: Vital Signs Temperature 97.9 F 02/23/16 10:00 Pulse Rate 80 02/23/16 10:00 Respiratory Rate 22 02/23/16 10:00 Blood Pressure 155/77 02/23/16 10:00 O2 Sat by Pulse Oximetry (%) 92 L 02/23/16 09:10 Constitutional: Yes: No Distress HENT: Yes: Other. No: Atraumatic, Normocephalic Neck: Yes: Supple Cardiovascular: Yes: Regular Rate and Rhythm. No: JVD Respiratory: Yes: Diminished Gastrointestinal: Yes: Soft. No: Tenderness Extremities: Yes: Other (stasis changes) Edema: Yes Edema: LLE: 4+, RLE: 4+ Neurological: Yes: Alert, Oriented Labs: CBC, BMP 02/23/16 06:00 02/23/16 06:00 INR, PTT INR 1.12 (0.82-1.09) 02/18/16 13:00 Problem List - Problems (1) COPD exacerbation Code(s): J44.1 - CHRONIC OBSTRUCTIVE PULMONARY DISEASE W (ACUTE) EXACERBATION (2) Acute and chronic respiratory failure ([id number]) Code(s): J96.20 - ACUTE AND CHR RESP FAILURE, UNSP W HYPOXIA OR HYPERCAPNIA Qualifiers: Respiratory failure complication: hypoxia and hypercapnia Qualified Code(s): J96.21 - Acute and chronic respiratory failure with hypoxia (3) Acute kidney failure Code(s): N17.9 - ACUTE KIDNEY FAILURE, UNSPECIFIED Qualifiers: Acute renal failure type: unspecified Qualified Code(s): N17.9 - Acute kidney failure, unspecified (4) Chronic kidney disease (CKD) Code(s): N18.9 - CHRONIC KIDNEY DISEASE, UNSPECIFIED Qualifiers: Chronic kidney disease stage: unspecified stage Qualified Code(s): N18.9 - Chronic kidney disease, unspecified (5) Cellulitis Code(s): L03.90 - CELLULITIS, UNSPECIFIED Qualifiers: Site of cellulitis of extremity: lower extremity (6) Hyperkalemia Code(s): E87.5 - HYPERKALEMIA (7) Arteriosclerotic heart disease (ASHD) Code(s): I25.10 - ATHSCL HEART DISEASE OF [place] CORONARY ARTERY W/O ANG PCTRS (8) Obesities, morbid Code(s): E66.01 - MORBID (SEVERE) OBESITY DUE TO EXCESS CALORIES Qualifiers: Obesity type: with alveolar hypoventilation Qualified Code(s): E66.2 - Morbid (severe) obesity with alveolar hypoventilation Assessment/Plan COPD Acute on chronic hypercapneic respiratory failure: still dyspneic Acute Renal Failure Hyperkalemia Chronic Renal Insufficiency: Yesterday: Creatinine 7.1 BUN 81 Hgb 7.3 K 4.6 ASHD: No chest pain or palpitations Plan: HD and diuretic per renal Steroid taper inhaled bronchodilator NIPPV prn Repeat blood work
--- NOTE | 2016-02-23 14:24 | PN ---
Progress Note, Physician History of Present Illness: extremely sob sitting in chair - Current Medication List Current Medications: Active Medications Albuterol Sulfate (Ventolin 0.083% Nebulizer Soln -) 1 amp NEB Q4H PRN PRN Reason: SHORT OF BREATH/WHEEZING Last Admin: 02/21/16 16:50 Dose: 1 amp Arformoterol Tartrate (Brovana (Restricted To Pulmonology/Resp) -) 1 amp NEB BID [facility] Last Admin: 02/23/16 09:10 Dose: 1 amp Aspirin (Ecotrin -) 81 mg PO DAILY [facility] Last Admin: 02/23/16 10:49 Dose: 81 mg Calcium Acetate (Phoslo -) 667 mg PO TIDCM [facility] Last Admin: 02/23/16 12:13 Dose: 667 mg Calcium Carbonate (Calcium Carbonate -) 1,300 mg PO BID [facility] Last Admin: 02/23/16 10:50 Dose: 1,300 mg Chlorhexidine Gluconate (Hibiclens For Decolonization -) 1 applic TP HS [facility] Last Admin: 02/22/16 21:36 Dose: 1 applic Clindamycin HCl (Cleocin -) 300 mg PO Q6HPO [facility] Duloxetine HCl (Cymbalta -) 20 mg PO DAILY [facility] Last Admin: 02/23/16 10:50 Dose: 20 mg Guaifenesin (Diabetic Tussin Dm -) 5 ml PO Q4H PRN PRN Reason: COUGH Heparin Sodium (Porcine) (Heparin -) 5,000 unit SQ Q8H-IV [facility] Last Admin: 02/23/16 10:50 Dose: 5,000 unit Aztreonam 1 gm/ Dextrose 50 mls @ 100 mls/hr IVPB Q8H-IV [facility] Last Admin: 02/23/16 10:51 Dose: 100 mls/hr Mupirocin (Bactroban Ointment (For Decolonization) -) 1 applic NS BID [facility] Stop: 02/23/16 21:59 Last Admin: 02/23/16 10:38 Dose: Not Given Prasugrel (Effient -) 10 mg PO DAILY [facility] Last Admin: 02/23/16 10:50 Dose: 10 mg Prednisone (Deltasone -) 40 mg PO DAILY [facility] Last Admin: 02/23/16 10:50 Dose: 40 mg Pregabalin (Lyrica -) 25 mg PO DAILY [facility] Last Admin: 02/23/16 10:49 Dose: 25 mg Tiotropium [place] (Spiriva -) 1 puff IH DAILY [facility] Last Admin: 02/23/16 10:51 Dose: 1 inh - Objective Vital Signs: Vital Signs Temperature 98 F 02/23/16 13:33 Pulse Rate 73 02/23/16 13:33 Respiratory Rate 20 02/23/16 13:33 Blood Pressure 154/74 02/23/16 13:33 O2 Sat by Pulse Oximetry (%) 92 L 02/23/16 09:10 Constitutional: Yes: Severe Distress Cardiovascular: Yes: Tachycardia Respiratory: Yes: On Nasal O2, Poor Air Entry, Rhonchi Gastrointestinal: Yes: Normal Bowel Sounds, Soft Musculoskeletal: Yes: Other Extremities: Yes: Other Wound/Incision: Yes: Dressing Dry and Intact Neurological: Yes: Alert, Oriented Psychiatric: Yes: Alert Labs: CBC, BMP 02/23/16 06:00 02/23/16 06:00 INR, PTT INR 1.12 (0.82-1.09) 02/18/16 13:00 Assessment/Plan 75 year-old man with a PMH of HTN, PVD, COPD, CKD (baseline Cr 1.9), nephrolithiasis, and chronic LE lymphedema. Admitted in acute renal failure. Acute on chronic renal failure Hyperkalemia Sepsis s Hypertension Peripheral vascular disease Hypercarbic respiratory failure COPD bilateral cellulitis of the legs plan changed clinda to oral rest as per primary patient extremely sob i think we should keep his legs open
[2016-02-23] MEDS: ALBUTEROL SO4 0.083% IH SOL 2.5 MG/3 ML VIAL.NEB. NEB PRN ×2 (14:26→17:51)
--- NOTE | 2016-02-23 15:41 | PN ---
Physical Exam: SUBJECTIVE: Patient seen and examined at bedside in AM. Pt states he feels better today. He states he did not use bipap last night. He states he feels like he is breathing well on 3L NC. He denies SOB, CP, cough, abdominal pain, N /V/F/C, pain in legs. OBJECTIVE: Vital Signs Temperature 98 F 02/23/16 13:33 Pulse Rate 73 02/23/16 13:33 Respiratory Rate 20 02/23/16 13:33 Blood Pressure 154/74 02/23/16 13:33 O2 Sat by Pulse Oximetry (%) 92 L 02/23/16 09:10 GENERAL: The patient is awake, alert, and fully oriented, in no acute distress. Laying in bed comfortably on 3L NC. HEAD: Normal with no signs of trauma. EYES: conjunctiva clear. No ptosis. ENT: moist mucous membranes. NECK: Trachea midline, full range of motion. LUNGS: Diminished breath sounds. Did not appreciate crackles or wheezing. HEART: Distant heart sounds. Regular rate and rhythm, S1, S2 without murmur, rub or gallop. ABDOMEN: Soft, obese, nontender, nondistended, normoactive bowel sounds, no guarding, no rebound, no hepatosplenomegaly, no masses. EXTREMITIES: 2+ pulses, warm, well-perfused, B/L cellulitic changes, B/L LE pitting edema. NEUROLOGICAL: Normal speech, gait not observed. PSYCH: Normal mood, normal affect. SKIN: Warm, dry, normal turgor. Laboratory Results - last 24 hr 02/22/16 02/23/16 02/23/16 10:30 06:00 06:00 WBC 6.4 RBC 2.93 L Hgb 7.3 L Hct 22.7 L MCV 77.4 L MCHC 32.2 RDW 16.7 H Plt Count 148 MPV 7.6 Neutrophils % 69.6 Lymphocytes % 17.1 D Monocytes % 12.8 H Eosinophils % 0.4 D Basophils % 0.1 Sodium 144 Potassium 4.6 Chloride 104 Carbon Dioxide 32 Anion Gap 8 BUN 81 H D Creatinine 4.7 H D Creat Clearance w eGFR 12.28 Random Glucose 91 Calcium 7.1 L Phosphorus 5.4 H Magnesium 2.3 Total Bilirubin 0.4 D AST 23 D ALT 38 D Alkaline Phosphatase 69 Total Protein 5.6 L Albumin 2.8 L PTH Intact 297 H Microbiology 02/18/16 19:15 Blood - Peripheral Venous Blood Culture - Preliminary NO GROWTH OBTAINED AFTER 96 HOURS, INCUBATION TO CONTINUE FOR 1 DAYS. 02/18/16 19:15 Blood - Peripheral Venous Blood Culture - Preliminary NO GROWTH OBTAINED AFTER 96 HOURS, INCUBATION TO CONTINUE FOR 1 DAYS. 02/18/16 18:10 Urine - Urine Clean Catch Urine Culture - Final NO GROWTH OBTAINED Active Medications Generic Name Dose Route Start Last Admin Trade Name Freq PRN Reason Stop Dose Admin Albuterol Sulfate 1 amp 02/18/16 16:41 02/23/16 14:26 Ventolin 0.083% Nebulizer Soln - NEB 1 amp Q4H PRN Administration SHORT OF BREATH/WHEEZING Arformoterol Tartrate 1 amp 02/18/16 22:00 02/23/16 09:10 Brovana (Restricted To Pulmonology/Resp) - NEB 1 amp BID LESLEE Administration Aspirin 81 mg 02/18/16 20:45 02/23/16 10:49 Ecotrin - PO 81 mg DAILY LESLEE Administration Calcium Acetate 667 mg 02/19/16 12:00 02/23/16 12:13 Phoslo - PO 667 mg TIDCM LESLEE Administration Calcium Carbonate 1,300 mg 02/20/16 13:00 02/23/16 10:50 Calcium Carbonate - PO 1,300 mg BID LESLEE Administration Chlorhexidine Gluconate 1 applic 02/18/16 22:00 02/22/16 21:36 Hibiclens For Decolonization - TP 1 applic HS LESLEE Administration Clindamycin HCl 300 mg 02/23/16 18:00 Cleocin - PO Q6HPO LESLEE Duloxetine HCl 20 mg 02/18/16 20:45 02/23/16 10:50 Cymbalta - PO 20 mg DAILY LESLEE Administration Guaifenesin 5 ml 02/22/16 22:29 Diabetic Tussin Dm - PO Q4H PRN COUGH Heparin Sodium (Porcine) 5,000 unit 02/18/16 20:15 02/23/16 10:50 Heparin - SQ 5,000 unit Q8H-IV LESLEE Administration Hydralazine HCl 50 mg 02/23/16 22:00 Apresoline - PO HS LESLEE Aztreonam 1 gm/ Dextrose 50 mls @ 100 mls/hr 02/19/16 10:00 02/23/16 10:51 IVPB 100 mls/hr Q8H-IV LESLEE Administration Mupirocin 1 applic 02/18/16 22:00 02/23/16 10:38 Bactroban Ointment (For Decolonization) - NS 02/23/16 21:59 Not Given BID LESLEE Prasugrel 10 mg 02/18/16 20:45 02/23/16 10:50 Effient - PO 10 mg DAILY LESLEE Administration Prednisone 30 mg 02/23/16 14:58 Deltasone - PO DAILY LESLEE Pregabalin 25 mg 02/18/16 20:45 02/23/16 10:49 Lyrica - PO 25 mg DAILY LESLEE Administration Tiotropium [place] 1 puff 02/22/16 11:15 02/23/16 10:51 Spiriva - IH 1 inh DAILY LESLEE Administration ASSESSMENT/PLAN: 75 year-old man with a PMH of HTN, PVD, COPD, CKD (baseline Cr 1.9), nephrolithiasis, and chronic LE lymphedema. Admitted for acute renal failure ( hyperkalemia) and respiratory distress. 1. Acute on chronic renal failure -BUN/Cr 81/4.7 (baseline 1.8) -urine 700 ml yesterday, 450 ml so far today -HD as per nephrology 2. Acute Hyperkalemia -4.6 today, improved -on HD -f/u bmp 3. Acute COPD exacerbation with hypercapnic respiratory failure -Bipap as needed -NC O2 3L. Still oxygenating well. -brovana, albuterol PRN -prednisone decreased to 30 mg PO qd 4. Anemia -Multiple Myeloma (kidney failure + anemia) -urine and serum protein electrophoresis ordered -Iron studies ordered -FOBT ordered 4. Sepsis secondary to B/L lower extremity cellulitis -improved -BCx (-) X 96 hours; UCx negative -ID on board -clindamycin changed to 300 mg PO q6h -c/w aztreonam 1gm q8h 5. HTN -restarted hydralazine 50 mg PO qhs (same as home dose) 6. Hx of Depression -c/w cymbalta 7. CAD -prasugrel 10 mg PO qd 8. FEN -hyperkalemia resolved - on HD -corrected Ca - 7.58 -hypocalcemia - calcium carbonate 9. Dispo: monitor on floors. Problem List - Problems (1) Acute kidney failure Code(s): N17.9 - ACUTE KIDNEY FAILURE, UNSPECIFIED Qualifiers: Acute renal failure type: unspecified Qualified Code(s): N17.9 - Acute kidney failure, unspecified (2) COPD exacerbation Code(s): J44.1 - CHRONIC OBSTRUCTIVE PULMONARY DISEASE W (ACUTE) EXACERBATION (3) Hyperkalemia Code(s): E87.5 - HYPERKALEMIA (4) Acute and chronic respiratory failure ([id number]) Code(s): J96.20 - ACUTE AND CHR RESP FAILURE, UNSP W HYPOXIA OR HYPERCAPNIA Qualifiers: Respiratory failure complication: hypoxia and hypercapnia Qualified Code(s): J96.21 - Acute and chronic respiratory failure with hypoxia (5) Acute exacerbation of chronic obstructive pulmonary disease (COPD) Code(s): J44.1 - CHRONIC OBSTRUCTIVE PULMONARY DISEASE W (ACUTE) EXACERBATION (6) Acute on chronic diastolic (congestive) heart failure Code(s): I50.33 - ACUTE ON CHRONIC DIASTOLIC (CONGESTIVE) HEART FAILURE (7) Anxiety and depression Code(s): F41.9 - ANXIETY DISORDER, UNSPECIFIED F32.9 - MAJOR DEPRESSIVE DISORDER, SINGLE EPISODE, UNSPECIFIED (8) Cellulitis Code(s): L03.90 - CELLULITIS, UNSPECIFIED Qualifiers: Site of cellulitis of extremity: lower extremity (9) Chronic kidney disease (CKD) Code(s): N18.9 - CHRONIC KIDNEY DISEASE, UNSPECIFIED Qualifiers: Chronic kidney disease stage: unspecified stage Qualified Code(s): N18.9 - Chronic kidney disease, unspecified (10) Diastolic CHF Code(s): I50.30 - UNSPECIFIED DIASTOLIC (CONGESTIVE) HEART FAILURE (11) Hyperlipidemia Code(s): E78.5 - HYPERLIPIDEMIA, UNSPECIFIED (12) Hypertension Code(s): I10 - ESSENTIAL (PRIMARY) HYPERTENSION (13) Obesities, morbid Code(s): E66.01 - MORBID (SEVERE) OBESITY DUE TO EXCESS CALORIES Qualifiers: Obesity type: with alveolar hypoventilation Qualified Code(s): E66.2 - Morbid (severe) obesity with alveolar hypoventilation (14) Respiratory failure with hypoxia and hypercapnia Code(s): J96.91 - RESPIRATORY FAILURE, UNSPECIFIED WITH HYPOXIA J96.92 - RESPIRATORY FAILURE, UNSPECIFIED WITH HYPERCAPNIA Qualifiers: Chronicity: acute on chronic Qualified Code(s): J96.21 - Acute and chronic respiratory failure with hypoxia; J96.22 - Acute and chronic respiratory failure with hypercapnia (15) Shortness of breath Code(s): R06.02 - SHORTNESS OF BREATH Visit type - Emergency Visit Emergency Visit: No - New Patient This patient is new to me today: No - Critical Care Critical Care patient: No
[2016-02-23] MEDS: CLINDAMYCIN HCL 150 MG CAPSULE (FP) PO SCH (17:30)
--- NOTE | 2016-02-23 19:28 | PN ---
Teaching Attending Note Name of Resident: Freddie Strickland ATTENDING PHYSICIAN STATEMENT I saw and evaluated the patient. I reviewed the resident's note and discussed the case with the resident. I agree with the resident's findings and plan as documented. SUBJECTIVE: no fever or chills , no abd pain , SOB is better . not ambulating OBJECTIVE: evaluated around 11 am NAD , CV: RRR Lungs : scattered wheezes . ext ; thick skin , non pitting edema , green dry exudate posteriorly on legs . obese abd , nT ASSESSMENT AND PLAN: 75 year-old man with a PMHx of HTN, PVD, COPD, CKD (baseline Cr 1.8), nephrolithiasis, and chronic LE lymphedema. presented with SOB and was found to have acute hypercapnic resp failure with acute resp failure . 1- acute hypercapnic resp failure due to COPD exa: improved . - decrease steroids to 30 daily - cont Nebs - appreciate Pulm help 2- cellultis of LE : PO clinda today kep legs unwrapped 3- KARLOS on CKD : unclear etiology , but in setting of anemia , and renal failure , MM needs to be R/O . ? ATN due to volume depletion - check SPEP , UPEP - cont HD . - phoslo and calcium acetate - follow PTH - hyperkalemia resolved 4- microcytic anemia . need to r/o iron deff and chronic slow GI bleed loss - check iron studies and folate , B12 - FOBT 5- uncontrolled HTN: not clear why pt was taken off his home hydralazine ( 50 HS ) . SBP 160s-170s here - resume HZn at 50 BID , can adjust dose 6- PT EVALUATION
[2016-02-23] MEDS: hydrALAZINE HCL 50 MG TABLET (FP) PO SCH (21:49)
[2016-02-23] MEDS ORDERED: MUPIROCIN 2% TOPICAL OINTMENT FOR DECOLONIZATION NS SCH (22:00)
[2016-02-23] MEDS ORDERED: hydrALAZINE HCL 50 MG TABLET (FP) PO SCH (22:00)
[2016-02-23] MEDS ORDERED: CHLORHEXIDINE GLUCONATE 4% CLEANSER FOR DECOLONIZATION TP SCH (22:00)
[2016-02-24 00:06] LABS: A/G RATIO 1.2 (0.7-1.7); ALBUMIN 2.8 g/dL (2.9-4.4); GLOBULIN, TOTAL 2.4 g/dL (2.2-3.9); M-SPIKE Not Observed g/dL (Not Observed); TOTAL PROTEIN 5.2 g/dL (6.0-8.5)
[2016-02-24] MEDS: AZTREONAM 1 GM in DEXTROSE 5%-WATER - 50 ML IVPB SCH ×3 (02:07→17:04)
[2016-02-24] MEDS: CLINDAMYCIN HCL 150 MG CAPSULE (FP) PO SCH ×5 (02:41→23:20)
[2016-02-24] MEDS: HEPARIN NA (PORCINE) 5,000 UNITS/ML 1ML VIAL SQ SCH ×3 (02:41→17:05)
[2016-02-24] MEDS: ALBUTEROL SO4 0.083% IH SOL 2.5 MG/3 ML VIAL.NEB. NEB PRN (06:45)
[2016-02-24 07:30] LABS: MCH 25.1 pg (25.7-33.7); MCHC 32.4 g/dl (32.0-35.9); MEAN CELL VOLUME 77.5 fl (80-96); MEAN PLT VOLUME 7.9 fl (7.5-11.1); PLATELET COUNT 160 K/MM3 (134-434); RDW 16.6 % (11.9-15.9); WHITE BLOOD COUNT 7.7 K/mm3 (4.0-10.0)
[2016-02-24 07:53] LABS: PHOSPHOROUS 5.2 mg/dL (2.5-4.9)
[2016-02-24 08:06] LABS: ALBUMIN 2.8 g/dl (3.4-5.0); BILIRUBIN,TOTAL 0.5 mg/dL (0.2-1.0); CALCIUM 7.4 mg/dL (8.5-10.1); CREATININE 4.7 mg/dL (0.7-1.3); FERRITIN 189.103 ng/ml (16.4-293.9); MAGNESIUM 2.4 mg/dL (1.8-2.4); TOT PROT 5.8 g/dl (6.4-8.2)
[2016-02-24] MEDS: CALCIUM ACETATE 667 MG CAPSULE (FP) PO SCH ×3 (08:30→16:44)
[2016-02-24] MEDS: ARFORMOTEROL TARTRATE 15 MCG/2 ML VIAL NEB SCH ×2 (10:17→22:58)
[2016-02-24] MEDS ORDERED: PT OWN MED DRAWER 7, Y5N ONE ×3 (10:22→23:36)
[2016-02-24] MEDS: predniSONE 10 MG TABLET (UD) PO SCH (10:25)
[2016-02-24] MEDS: PREGABALIN 25 MG CAPSULE PO SCH (10:25)
[2016-02-24] MEDS: TIOTROPIUM BROMIDE 18 MCG/INH (DEVICE W/ 5 CAPSULES) IH SCH (10:25)
[2016-02-24] MEDS: ASPIRIN COATED 81 MG TABLET.EC PO SCH (10:26)
[2016-02-24] MEDS: hydrALAZINE HCL 50 MG TABLET (FP) PO SCH ×2 (10:26→22:17)
[2016-02-24] MEDS: CALCIUM CARBONATE 650 MG TABLET PO SCH (10:26)
[2016-02-24] MEDS: DULoxetine HCL 20 MG CAPSULE.DR (FP) PO SCH (10:27)
[2016-02-24] MEDS: PRASUGREL HCL 10 MG TAB PO SCH (10:27)
--- NOTE | 2016-02-24 10:53 | PN ---
Physical Exam: SUBJECTIVE: Patient seen and examined at bedside. He has no complaints today. He slept well and did not use bipap. Denies N/V/F/C, CP, SOB, abdominal pain, and is now urinating. OBJECTIVE: Vital Signs Temperature 98.0 F 02/24/16 06:00 Pulse Rate 69 02/24/16 06:00 Respiratory Rate 18 02/24/16 06:00 Blood Pressure 145/74 02/24/16 06:00 O2 Sat by Pulse Oximetry (%) 93 L 02/24/16 10:16 GENERAL: The patient is awake, alert, and fully oriented, in no acute distress. Sitting in bed comfortably on 3L NC. HEAD: Normal with no signs of trauma. EYES: conjunctiva clear. No ptosis. ENT: moist mucous membranes. NECK: Trachea midline, full range of motion. LUNGS: Diminished breath sounds. Did not appreciate crackles or wheezing. HEART: Distant heart sounds. Regular rate and rhythm, S1, S2 without murmur, rub or gallop. ABDOMEN: Soft, obese, nontender, nondistended, normoactive bowel sounds, no guarding, no rebound, no hepatosplenomegaly, no masses. EXTREMITIES: 2+ pulses, warm, well-perfused, B/L cellulitic changes, B/L LE pitting edema and alvarado crusted chronic lesions. NEUROLOGICAL: Normal speech, gait not observed. PSYCH: Normal mood, normal affect. SKIN: Warm, dry, normal turgor. Laboratory Results - last 24 hr 02/22/16 02/22/16 02/24/16 10:30 10:30 06:15 WBC RBC Hgb Hct MCV MCHC RDW Plt Count MPV Sodium 143 Potassium 4.5 Chloride 105 Carbon Dioxide 29 Anion Gap 9 BUN 90 H Creatinine 4.7 H Creat Clearance w eGFR 12.28 Random Glucose 90 Calcium 7.4 L Phosphorus 5.2 H Magnesium 2.4 Ferritin 189.103 Total Bilirubin 0.5 D AST 23 ALT 41 Alkaline Phosphatase 67 Prot Electrophoresis Serum Total Protein 5.2 L Total Protein 5.8 L Albumin 2.8 L 2.8 L Globulin 2.4 Albumin/Globulin Ratio 1.2 Vatci-7-Lcloopfxk 0.3 Rxwri-1-Koxvmkose 0.9 Beta Globulins 0.6 L Gamma Globulins 0.7 PTH Intact 297 H SADAF M-Mendez Not observed 02/24/16 06:15 WBC 7.7 RBC 2.97 L Hgb 7.5 L Hct 23.0 L MCV 77.5 L MCHC 32.4 RDW 16.6 H Plt Count 160 MPV 7.9 Sodium Potassium Chloride Carbon Dioxide Anion Gap BUN Creatinine Creat Clearance w eGFR Random Glucose Calcium Phosphorus Magnesium Ferritin Total Bilirubin AST ALT Alkaline Phosphatase Prot Electrophoresis Serum Total Protein Total Protein Albumin Globulin Albumin/Globulin Ratio Ztgfv-1-Zsfisbwls Uckvc-4-Ixrsnnopv Beta Globulins Gamma Globulins PTH Intact SADAF M-Mendez Microbiology 02/18/16 19:15 Blood - Peripheral Venous Blood Culture - Final NO GROWTH AFTER 5 DAYS INCUBATION 02/18/16 19:15 Blood - Peripheral Venous Blood Culture - Final NO GROWTH AFTER 5 DAYS INCUBATION 02/18/16 18:10 Urine - Urine Clean Catch Urine Culture - Final NO GROWTH OBTAINED Active Medications Generic Name Dose Route Start Last Admin Trade Name Freq PRN Reason Stop Dose Admin Albuterol Sulfate 1 amp 02/23/16 16:12 02/24/16 06:45 Ventolin 0.083% Nebulizer Soln - NEB 1 amp Q4H PRN Administration SHORT OF BREATH/WHEEZING Arformoterol Tartrate 1 amp 02/23/16 22:00 02/24/16 10:17 Brovana (Restricted To Pulmonology/Resp) - NEB 1 amp BID LESLEE Administration Aspirin 81 mg 02/24/16 10:00 02/24/16 10:26 Ecotrin - PO 81 mg DAILY LESLEE Administration Calcium Acetate 667 mg 02/23/16 17:30 02/24/16 08:30 Phoslo - PO 667 mg TIDCM LESLEE Administration Calcium Carbonate 1,300 mg 02/23/16 22:00 02/24/16 10:26 Calcium Carbonate - PO 1,300 mg BID LESLEE Administration Clindamycin HCl 300 mg 02/23/16 18:00 02/24/16 06:01 Cleocin - PO 300 mg Q6HPO LESLEE Administration Duloxetine HCl 20 mg 02/24/16 10:00 02/24/16 10:27 Cymbalta - PO 20 mg DAILY LESLEE Administration Guaifenesin 5 ml 02/22/16 22:29 Diabetic Tussin Dm - PO Q4H PRN COUGH Heparin Sodium (Porcine) 5,000 unit 02/23/16 18:00 02/24/16 10:27 Heparin - SQ 5,000 unit Q8H-IV LESLEE Administration Hydralazine HCl 50 mg 02/23/16 22:00 02/24/16 10:26 Apresoline - PO 50 mg BID LESLEE Administration Aztreonam 1 gm/ Dextrose 50 mls @ 100 mls/hr 02/23/16 18:00 02/24/16 10:26 IVPB 100 mls/hr Q8H-IV LESLEE Administration Prasugrel 10 mg 02/24/16 10:00 02/24/16 10:27 Effient - PO 10 mg DAILY LESLEE Administration Prednisone 30 mg 02/24/16 10:00 02/24/16 10:25 Deltasone - PO 30 mg DAILY LESLEE Administration Pregabalin 25 mg 02/24/16 10:00 02/24/16 10:25 Lyrica - PO 25 mg DAILY LESLEE Administration Tiotropium [place] 1 puff 02/22/16 11:15 02/24/16 10:25 Spiriva - IH 1 inh DAILY LESLEE Administration ASSESSMENT/PLAN: 75 year-old man with a PMH of HTN, PVD, COPD, CKD (baseline Cr 1.9), nephrolithiasis, and chronic LE lymphedema. Admitted for acute renal failure ( hyperkalemia) and respiratory distress. 1. Acute on chronic renal failure -BUN/Cr 90/4.7 (baseline 1.8) -urine: 740 ml yesterday, 200 ml so far today. -HD as per nephrology -Spoke w/Dr. Johnson and no plans for dialysis at the moment today and we will check labs tomorrow. If labs stable may d/c temporary catheter and continue monitoring pt off dialysis. 2. Acute Hyperkalemia -4.5 today, improved -on HD -f/u bmp 3. Acute COPD exacerbation with hypercapnic respiratory failure -Bipap as needed -NC O2 3L. Still oxygenating well. -brovana, albuterol PRN -prednisone 30 mg PO qd (day 1) 4. Anemia -Multiple Myeloma (kidney failure + anemia) -urine and serum protein electrophoresis ordered -Iron studies ordered -ferritin 189 -FOBT ordered 4. Sepsis secondary to B/L lower extremity cellulitis -improved -BCx (-) X 5 days; UCx negative -ID on board -clindamycin changed to 300 mg PO q6h -c/w aztreonam 1gm q8h -change to PO equivalent? 5. HTN -hydralazine 50 mg PO bid -htn better controlled on hydralazine bid 6. Hx of Depression -c/w cymbalta 7. CAD -prasugrel 10 mg PO qd 8. FEN -hyperkalemia resolved - on HD -corrected Ca - 8.36, improving -hypocalcemia - calcium carbonate 9. Dispo: monitor on floors. Problem List - Problems (1) Acute kidney failure Code(s): N17.9 - ACUTE KIDNEY FAILURE, UNSPECIFIED Qualifiers: Acute renal failure type: unspecified Qualified Code(s): N17.9 - Acute kidney failure, unspecified (2) COPD exacerbation Code(s): J44.1 - CHRONIC OBSTRUCTIVE PULMONARY DISEASE W (ACUTE) EXACERBATION (3) Hyperkalemia Code(s): E87.5 - HYPERKALEMIA (4) Acute and chronic respiratory failure (oaedd-qb-veirfya) Code(s): J96.20 - ACUTE AND CHR RESP FAILURE, UNSP W HYPOXIA OR HYPERCAPNIA Qualifiers: Respiratory failure complication: hypoxia and hypercapnia Qualified Code(s): J96.21 - Acute and chronic respiratory failure with hypoxia (5) Acute exacerbation of chronic obstructive pulmonary disease (COPD) Code(s): J44.1 - CHRONIC OBSTRUCTIVE PULMONARY DISEASE W (ACUTE) EXACERBATION (6) Acute on chronic diastolic (congestive) heart failure Code(s): I50.33 - ACUTE ON CHRONIC DIASTOLIC (CONGESTIVE) HEART FAILURE (7) Anxiety and depression Code(s): F41.9 - ANXIETY DISORDER, UNSPECIFIED F32.9 - MAJOR DEPRESSIVE DISORDER, SINGLE EPISODE, UNSPECIFIED (8) Cellulitis Code(s): L03.90 - CELLULITIS, UNSPECIFIED Qualifiers: Site of cellulitis of extremity: lower extremity (9) Chronic kidney disease (CKD) Code(s): N18.9 - CHRONIC KIDNEY DISEASE, UNSPECIFIED Qualifiers: Chronic kidney disease stage: unspecified stage Qualified Code(s): N18.9 - Chronic kidney disease, unspecified (10) Diastolic CHF Code(s): I50.30 - UNSPECIFIED DIASTOLIC (CONGESTIVE) HEART FAILURE (11) Hyperlipidemia Code(s): E78.5 - HYPERLIPIDEMIA, UNSPECIFIED (12) Hypertension Code(s): I10 - ESSENTIAL (PRIMARY) HYPERTENSION (13) Obesities, morbid Code(s): E66.01 - MORBID (SEVERE) OBESITY DUE TO EXCESS CALORIES Qualifiers: Obesity type: with alveolar hypoventilation Qualified Code(s): E66.2 - Morbid (severe) obesity with alveolar hypoventilation (14) Respiratory failure with hypoxia and hypercapnia Code(s): J96.91 - RESPIRATORY FAILURE, UNSPECIFIED WITH HYPOXIA J96.92 - RESPIRATORY FAILURE, UNSPECIFIED WITH HYPERCAPNIA Qualifiers: Chronicity: acute on chronic Qualified Code(s): J96.21 - Acute and chronic respiratory failure with hypoxia; J96.22 - Acute and chronic respiratory failure with hypercapnia (15) Shortness of breath Code(s): R06.02 - SHORTNESS OF BREATH Visit type - Emergency Visit Emergency Visit: No - New Patient This patient is new to me today: No - Critical Care Critical Care patient: No
--- NOTE | 2016-02-24 12:37 | PN ---
Progress Note (short form) - Note Progress Note: Renal Follow up for KARLOS Pt seen and examined at the bedside no acute complaints ambulating good po intake making a good amount of urine Vital Signs Temperature 98.0 F 02/24/16 06:00 Pulse Rate 69 02/24/16 06:00 Respiratory Rate 18 02/24/16 06:00 Blood Pressure 145/74 02/24/16 06:00 O2 Sat by Pulse Oximetry (%) 93 L 02/24/16 10:16 Intake & Output 02/21/16 02/22/16 02/23/16 02/24/16 23:59 23:59 23:59 23:59 Intake Total 1490 1120 880 100 Output Total 750 700 740 200 Balance 740 420 140 -100 Weight 320 lb 319 lb 2 oz 312 lb 8 oz 312 lb 2 oz Gen: NAD CVS: RRR No M/R Lungs: CTA Abd: Soft NT + Mild distension Ext: > 3+ LE Lymph edema, no cyanosis or clubbing HD Access: Right IJ trialysis catheter CBC, BMP 02/24/16 06:15 02/24/16 06:15 Laboratory Tests 02/24/16 06:15 Calcium 7.4 L Phosphorus 5.2 H Magnesium 2.4 Albumin 2.8 L Current Medications Albuterol Sulfate (Ventolin 0.083% Nebulizer Soln -) 1 amp NEB Q4H PRN PRN Reason: SHORT OF BREATH/WHEEZING Last Admin: 02/24/16 06:45 Dose: 1 amp Arformoterol Tartrate (Brovana (Restricted To Pulmonology/Resp) -) 1 amp NEB BID [facility] Last Admin: 02/24/16 10:17 Dose: 1 amp Aspirin (Ecotrin -) 81 mg PO DAILY [facility] Last Admin: 02/24/16 10:26 Dose: 81 mg Calcium Acetate (Phoslo -) 667 mg PO TIDCM [facility] Last Admin: 02/24/16 08:30 Dose: 667 mg Calcium Carbonate (Calcium Carbonate -) 1,300 mg PO BID [facility] Last Admin: 02/24/16 10:26 Dose: 1,300 mg Clindamycin HCl (Cleocin -) 300 mg PO Q6HPO [facility] Last Admin: 02/24/16 06:01 Dose: 300 mg Duloxetine HCl (Cymbalta -) 20 mg PO DAILY [facility] Last Admin: 02/24/16 10:27 Dose: 20 mg Guaifenesin (Diabetic Tussin Dm -) 5 ml PO Q4H PRN PRN Reason: COUGH Heparin Sodium (Porcine) (Heparin -) 5,000 unit SQ Q8H-IV [facility] Last Admin: 02/24/16 10:27 Dose: 5,000 unit Hydralazine HCl (Apresoline -) 50 mg PO BID [facility] Last Admin: 02/24/16 10:26 Dose: 50 mg Aztreonam 1 gm/ Dextrose 50 mls @ 100 mls/hr IVPB Q8H-IV [facility] Last Admin: 02/24/16 10:26 Dose: 100 mls/hr Prasugrel (Effient -) 10 mg PO DAILY [facility] Last Admin: 02/24/16 10:27 Dose: 10 mg Prednisone (Deltasone -) 30 mg PO DAILY [facility] Last Admin: 02/24/16 10:25 Dose: 30 mg Pregabalin (Lyrica -) 25 mg PO DAILY [facility] Last Admin: 02/24/16 10:25 Dose: 25 mg Tiotropium [place] (Spiriva -) 1 puff IH DAILY [facility] Last Admin: 02/24/16 10:25 Dose: 1 inh A/P 75 year old Gentleman with PMhx of CKD Stage 3 (baseline Cr 1.9), Hx of Nephrolithiasis, Hypertension, COPD, CHF, PVD, Chronic LE lymph edema who was sent into the ED from wound care for increased lethargy and decreased urination for several days with KARLOS with BUN/Cr of 115/7.2 and K of 6.5 #Acute Renal Failure on CKD Urine output improved cr stable over the last 24 hours holding off on dialysis today, trend BUN/Cr and urine output BUN also high because of steroids if Cr stable can plan to d/c temporary HD catheter tomorrow Dose all meds for Cr Cl less then 10 #Resp Acidosis/COPD Management as per pulmonary BIPAP as needed #Hypocalcemia/Hyperphosphatemia/Secondary Hyperparatyrodism Corrected CA is ~ 8.5 Check PTH 297, above goal for CKD 4 (where baseline kidney function was) Continue Calcium acetate D/C calcium carbonate start Calcitriol 0.25mcg daily Melvin Johnson DO
--- NOTE | 2016-02-24 13:32 | PN ---
Progress Note, Physician History of Present Illness: patient doing well no issues sitting in chair breathing much better - Current Medication List Current Medications: Active Medications Albuterol Sulfate (Ventolin 0.083% Nebulizer Soln -) 1 amp NEB Q4H PRN PRN Reason: SHORT OF BREATH/WHEEZING Last Admin: 02/24/16 06:45 Dose: 1 amp Arformoterol Tartrate (Brovana (Restricted To Pulmonology/Resp) -) 1 amp NEB BID [facility] Last Admin: 02/24/16 10:17 Dose: 1 amp Aspirin (Ecotrin -) 81 mg PO DAILY [facility] Last Admin: 02/24/16 10:26 Dose: 81 mg Calcitriol (Rocaltrol -) 0.25 mcg PO DAILY [facility] Calcium Acetate (Phoslo -) 667 mg PO TIDCM [facility] Last Admin: 02/24/16 12:47 Dose: 667 mg Clindamycin HCl (Cleocin -) 300 mg PO Q6HPO [facility] Last Admin: 02/24/16 12:47 Dose: 300 mg Duloxetine HCl (Cymbalta -) 20 mg PO DAILY [facility] Last Admin: 02/24/16 10:27 Dose: 20 mg Guaifenesin (Diabetic Tussin Dm -) 5 ml PO Q4H PRN PRN Reason: COUGH Heparin Sodium (Porcine) (Heparin -) 5,000 unit SQ Q8H-IV [facility] Last Admin: 02/24/16 10:27 Dose: 5,000 unit Hydralazine HCl (Apresoline -) 50 mg PO BID [facility] Last Admin: 02/24/16 10:26 Dose: 50 mg Aztreonam 1 gm/ Dextrose 50 mls @ 100 mls/hr IVPB Q8H-IV [facility] Last Admin: 02/24/16 10:26 Dose: 100 mls/hr Prasugrel (Effient -) 10 mg PO DAILY [facility] Last Admin: 02/24/16 10:27 Dose: 10 mg Prednisone (Deltasone -) 30 mg PO DAILY [facility] Last Admin: 02/24/16 10:25 Dose: 30 mg Pregabalin (Lyrica -) 25 mg PO DAILY [facility] Last Admin: 02/24/16 10:25 Dose: 25 mg Tiotropium [place] (Spiriva -) 1 puff IH DAILY [facility] Last Admin: 02/24/16 10:25 Dose: 1 inh - Objective Vital Signs: Vital Signs Temperature 97.8 F 02/24/16 10:00 Pulse Rate 81 02/24/16 10:00 Respiratory Rate 18 02/24/16 10:00 Blood Pressure 139/60 02/24/16 10:00 O2 Sat by Pulse Oximetry (%) 93 L 02/24/16 10:16 Constitutional: Yes: No Distress, Calm Cardiovascular: Yes: Regular Rate and Rhythm Respiratory: Yes: Regular, Poor Air Entry, Rhonchi Gastrointestinal: Yes: Normal Bowel Sounds, Soft Musculoskeletal: Yes: Other Extremities: Yes: Other (chr lymphedema no drainage noted no smell noted) Integumentary: Yes: Erythema (minimal) Neurological: Yes: Alert, Oriented Psychiatric: Yes: Alert, Oriented Labs: CBC, BMP 02/24/16 06:15 02/24/16 06:15 INR, PTT INR 1.12 (0.82-1.09) 02/18/16 13:00 Assessment/Plan 75 year-old man with a PMH of HTN, PVD, COPD, CKD (baseline Cr 1.9), nephrolithiasis, and chronic LE lymphedema. Admitted in acute renal failure. Acute on chronic renal failure Hyperkalemia Sepsis s Hypertension Peripheral vascular disease Hypercarbic respiratory failure COPD bilateral cellulitis of the legs plan changed clinda to oral rest as per primary patient extremely sob will stop aztreonam soon and switch to oral depending on his legs
--- NOTE | 2016-02-24 15:52 | PN ---
Teaching Attending Note Name of Resident: Freddie Strickland ATTENDING PHYSICIAN STATEMENT I saw and evaluated the patient. I reviewed the resident's note and discussed the case with the resident. I agree with the resident's findings and plan as documented. SUBJECTIVE: feels better , no abd pain or fever , no OSB OBJECTIVE: NAD , CV: RRR Lungs : scattered wheezes . ext ; thick skin , non pitting edema , green dry exudate posteriorly on legs with resolving erythema , no increased warmth . obese abd , nT ASSESSMENT AND PLAN: 75 year-old man with a PMHx of HTN, PVD, COPD, CKD (baseline Cr 1.8), nephrolithiasis, and chronic LE lymphedema. presented with SOB and was found to have acute hypercapnic resp failure with acute resp failure . 1- acute hypercapnic resp failure due to COPD exa: improved . -cont steroids at 30 daily - cont Nebs - appreciate Pulm help 2- cellultis of LE : cont PO clinda kep legs unwrapped 3- KARLOS on CKD : unclear etiology ,no Mspike on SPEP ? ATN due to volume depletion - calcium acetate - PTH elevated , started calcitriol - hyperkalemia resolved - to remove HD cath tomorrow 4- microcytic anemia . - iron studies pending but ferritin 189 , unlikely iron def - FOBT 5- uncontrolled HTN: cont HZN BID . BP improved 6- PT EVALUATION need pre and post ambulatory PUlse OX . possible dc tomorrow. ASSESSMENT AND PLAN: ASSESSMENT AND PLAN:
[2016-02-24] MEDS: CALCITRIOL 0.25 MCG CAPSULE (FP) PO SCH (16:45)
--- NOTE | 2016-02-24 18:12 | PN ---
Progress Note, Physician History of Present Illness: Pulmonary Pt alert and oriented NAD. No dyspnea. OOB in chair - Current Medication List Current Medications: Active Medications Albuterol Sulfate (Ventolin 0.083% Nebulizer Soln -) 1 amp NEB Q4H PRN PRN Reason: SHORT OF BREATH/WHEEZING Last Admin: 02/24/16 06:45 Dose: 1 amp Arformoterol Tartrate (Brovana (Restricted To Pulmonology/Resp) -) 1 amp NEB BID [facility] Last Admin: 02/24/16 10:17 Dose: 1 amp Aspirin (Ecotrin -) 81 mg PO DAILY [facility] Last Admin: 02/24/16 10:26 Dose: 81 mg Calcitriol (Rocaltrol -) 0.25 mcg PO DAILY [facility] Last Admin: 02/24/16 16:45 Dose: 0.25 mcg Calcium Acetate (Phoslo -) 667 mg PO TIDCM [facility] Last Admin: 02/24/16 16:44 Dose: 667 mg Clindamycin HCl (Cleocin -) 300 mg PO Q6HPO [facility] Last Admin: 02/24/16 17:04 Dose: 300 mg Duloxetine HCl (Cymbalta -) 20 mg PO DAILY [facility] Last Admin: 02/24/16 10:27 Dose: 20 mg Guaifenesin (Diabetic Tussin Dm -) 5 ml PO Q4H PRN PRN Reason: COUGH Heparin Sodium (Porcine) (Heparin -) 5,000 unit SQ Q8H-IV [facility] Last Admin: 02/24/16 17:05 Dose: 5,000 unit Hydralazine HCl (Apresoline -) 50 mg PO BID [facility] Last Admin: 02/24/16 10:26 Dose: 50 mg Aztreonam 1 gm/ Dextrose 50 mls @ 100 mls/hr IVPB Q8H-IV [facility] Last Admin: 02/24/16 17:04 Dose: 100 mls/hr Prasugrel (Effient -) 10 mg PO DAILY [facility] Last Admin: 02/24/16 10:27 Dose: 10 mg Prednisone (Deltasone -) 30 mg PO DAILY [facility] Last Admin: 02/24/16 10:25 Dose: 30 mg Pregabalin (Lyrica -) 25 mg PO DAILY [facility] Last Admin: 02/24/16 10:25 Dose: 25 mg Tiotropium [place] (Spiriva -) 1 puff IH DAILY [facility] Last Admin: 02/24/16 10:25 Dose: 1 inh - Objective Vital Signs: Vital Signs Temperature 97.7 F 02/24/16 17:08 Pulse Rate 78 02/24/16 17:08 Respiratory Rate 18 02/24/16 17:08 Blood Pressure 179/79 02/24/16 17:42 O2 Sat by Pulse Oximetry (%) 93 L 02/24/16 10:16 Constitutional: No: No Distress Eyes: No: Sclera Icterus HENT: Yes: Atraumatic, Normocephalic, Other Neck: Yes: Supple Cardiovascular: Yes: Regular Rate and Rhythm, JVD Respiratory: Yes: Diminished (bilateral) Gastrointestinal: Yes: Soft. No: Tenderness Extremities: Yes: Erythema, Other (lymphedema) Edema: Yes Edema: LLE: 4+, RLE: 4+ Neurological: Yes: Alert, Oriented Labs: CBC, BMP 02/24/16 06:15 02/24/16 06:15 INR, PTT INR 1.12 (0.82-1.09) 02/18/16 13:00 Problem List - Problems (1) COPD exacerbation Code(s): J44.1 - CHRONIC OBSTRUCTIVE PULMONARY DISEASE W (ACUTE) EXACERBATION (2) Acute and chronic respiratory failure ([id number]) Code(s): J96.20 - ACUTE AND CHR RESP FAILURE, UNSP W HYPOXIA OR HYPERCAPNIA Qualifiers: Respiratory failure complication: hypoxia and hypercapnia Qualified Code(s): J96.21 - Acute and chronic respiratory failure with hypoxia (3) Acute kidney failure Code(s): N17.9 - ACUTE KIDNEY FAILURE, UNSPECIFIED Qualifiers: Acute renal failure type: unspecified Qualified Code(s): N17.9 - Acute kidney failure, unspecified (4) Chronic kidney disease (CKD) Code(s): N18.9 - CHRONIC KIDNEY DISEASE, UNSPECIFIED Qualifiers: Chronic kidney disease stage: unspecified stage Qualified Code(s): N18.9 - Chronic kidney disease, unspecified (5) Cellulitis Code(s): L03.90 - CELLULITIS, UNSPECIFIED Qualifiers: Site of cellulitis of extremity: lower extremity (6) Hyperkalemia Code(s): E87.5 - HYPERKALEMIA (7) Arteriosclerotic heart disease (ASHD) Code(s): I25.10 - ATHSCL HEART DISEASE OF [place] CORONARY ARTERY W/O ANG PCTRS (8) Obesities, morbid Code(s): E66.01 - MORBID (SEVERE) OBESITY DUE TO EXCESS CALORIES Qualifiers: Obesity type: with alveolar hypoventilation Qualified Code(s): E66.2 - Morbid (severe) obesity with alveolar hypoventilation Assessment/Plan COPD Acute on chronic hypercapneic respiratory failure: improving Acute Renal Failure Hyperkalemia Chronic Renal Insufficiency: Creatinine 4.7 BUN 90 Hgb 7.5 K 4.5 ASHD: No chest pain or palpitations Plan: Steroid taper inhaled bronchodilator NIPPV prn
[2016-02-25] MEDS ORDERED: PT OWN MED DRAWER 7, Y5N ONE ×3 (01:52→10:54)
[2016-02-25] MEDS: AZTREONAM 1 GM in DEXTROSE 5%-WATER - 50 ML IVPB SCH ×2 (01:57→09:32)
[2016-02-25] MEDS: HEPARIN NA (PORCINE) 5,000 UNITS/ML 1ML VIAL SQ SCH ×3 (01:57→17:54)
[2016-02-25] MEDS: CLINDAMYCIN HCL 150 MG CAPSULE (FP) PO SCH ×3 (06:55→17:53)
[2016-02-25 08:07] LABS: SERUM IRON 60 ug/dL (38-169); TOTAL IRON BINDING CAPACITY 231 ug/dL (250-450); UIBC 171 ug/dL (111-343)
[2016-02-25] MEDS: CALCIUM ACETATE 667 MG CAPSULE (FP) PO SCH ×3 (08:30→17:54)
[2016-02-25 08:38] LABS: MCHC 32.4 g/dl (32.0-35.9); MEAN CELL VOLUME 77.2 fl (80-96); MEAN PLT VOLUME 7.8 fl (7.5-11.1); PLATELET COUNT 177 K/MM3 (134-434); RDW 16.9 % (11.9-15.9); WHITE BLOOD COUNT 7.9 K/mm3 (4.0-10.0)
[2016-02-25 09:07] LABS: CALCIUM 7.6 mg/dL (8.5-10.1); CREATININE 4.5 mg/dL (0.7-1.3); MAGNESIUM 2.6 mg/dL (1.8-2.4); PHOSPHOROUS 5.5 mg/dL (2.5-4.9)
[2016-02-25] MEDS: predniSONE 10 MG TABLET (UD) PO SCH (09:31)
[2016-02-25] MEDS: TIOTROPIUM BROMIDE 18 MCG/INH (DEVICE W/ 5 CAPSULES) IH SCH (09:31)
[2016-02-25] MEDS: hydrALAZINE HCL 50 MG TABLET (FP) PO SCH ×2 (09:31→22:23)
[2016-02-25] MEDS: DULoxetine HCL 20 MG CAPSULE.DR (FP) PO SCH (09:31)
[2016-02-25] MEDS: PREGABALIN 25 MG CAPSULE PO SCH (09:31)
[2016-02-25] MEDS: CALCITRIOL 0.25 MCG CAPSULE (FP) PO SCH (09:32)
[2016-02-25] MEDS: PRASUGREL HCL 10 MG TAB PO SCH (09:32)
[2016-02-25] MEDS: ASPIRIN COATED 81 MG TABLET.EC PO SCH (09:32)
[2016-02-25] MEDS: ARFORMOTEROL TARTRATE 15 MCG/2 ML VIAL NEB SCH ×2 (10:19→21:50)
--- NOTE | 2016-02-25 11:52 | PN ---
Progress Note (short form) - Note Progress Note: Renal Follow up for KARLOS Pt seen and examined at the bedside no acute complaints Vital Signs Temperature 98.0 F 02/24/16 06:00 Pulse Rate 69 02/24/16 06:00 Respiratory Rate 18 02/24/16 06:00 Blood Pressure 145/74 02/24/16 06:00 O2 Sat by Pulse Oximetry (%) 93 L 02/24/16 10:16 Intake & Output 02/21/16 02/22/16 02/23/16 02/24/16 23:59 23:59 23:59 23:59 Intake Total 1490 1120 880 100 Output Total 750 700 740 200 Balance 740 420 140 -100 Weight 320 lb 319 lb 2 oz 312 lb 8 oz 312 lb 2 oz Gen: NAD CVS: RRR No M/R Lungs: CTA Abd: Soft NT + Mild distension Ext: > 3+ LE Lymph edema, no cyanosis or clubbing HD Access: Right IJ trialysis catheter CBC, BMP 02/24/16 06:15 02/24/16 06:15 Laboratory Tests 02/24/16 06:15 Calcium 7.4 L Phosphorus 5.2 H Magnesium 2.4 Albumin 2.8 L Current Medications Albuterol Sulfate (Ventolin 0.083% Nebulizer Soln -) 1 amp NEB Q4H PRN PRN Reason: SHORT OF BREATH/WHEEZING Last Admin: 02/24/16 06:45 Dose: 1 amp Arformoterol Tartrate (Brovana (Restricted To Pulmonology/Resp) -) 1 amp NEB BID [facility] Last Admin: 02/24/16 10:17 Dose: 1 amp Aspirin (Ecotrin -) 81 mg PO DAILY [facility] Last Admin: 02/24/16 10:26 Dose: 81 mg Calcium Acetate (Phoslo -) 667 mg PO TIDCM [facility] Last Admin: 02/24/16 08:30 Dose: 667 mg Calcium Carbonate (Calcium Carbonate -) 1,300 mg PO BID [facility] Last Admin: 02/24/16 10:26 Dose: 1,300 mg Clindamycin HCl (Cleocin -) 300 mg PO Q6HPO [facility] Last Admin: 02/24/16 06:01 Dose: 300 mg Duloxetine HCl (Cymbalta -) 20 mg PO DAILY [facility] Last Admin: 02/24/16 10:27 Dose: 20 mg Guaifenesin (Diabetic Tussin Dm -) 5 ml PO Q4H PRN PRN Reason: COUGH Heparin Sodium (Porcine) (Heparin -) 5,000 unit SQ Q8H-IV [facility] Last Admin: 02/24/16 10:27 Dose: 5,000 unit Hydralazine HCl (Apresoline -) 50 mg PO BID [facility] Last Admin: 02/24/16 10:26 Dose: 50 mg Aztreonam 1 gm/ Dextrose 50 mls @ 100 mls/hr IVPB Q8H-IV [facility] Last Admin: 02/24/16 10:26 Dose: 100 mls/hr Prasugrel (Effient -) 10 mg PO DAILY [facility] Last Admin: 02/24/16 10:27 Dose: 10 mg Prednisone (Deltasone -) 30 mg PO DAILY [facility] Last Admin: 02/24/16 10:25 Dose: 30 mg Pregabalin (Lyrica -) 25 mg PO DAILY [facility] Last Admin: 02/24/16 10:25 Dose: 25 mg Tiotropium [place] (Spiriva -) 1 puff IH DAILY [facility] Last Admin: 02/24/16 10:25 Dose: 1 inh A/P 75 year old Gentleman with PMhx of CKD Stage 3 (baseline Cr 1.9), Hx of Nephrolithiasis, Hypertension, COPD, CHF, PVD, Chronic LE lymph edema who was sent into the ED from wound care for increased lethargy and decreased urination for several days with KARLOS with BUN/Cr of 115/7.2 and K of 6.5 #Acute Renal Failure on CKD Urine output improved cr stable over the last 24 hours holding off on dialysis today, trend BUN/Cr and urine output BUN also high because of steroids if Cr stable can plan to d/c temporary HD catheter tomorrow Dose all meds for Cr Cl less then 10 #Resp Acidosis/COPD Management as per pulmonary BIPAP as needed #Hypocalcemia/Hyperphosphatemia/Secondary Hyperparatyrodism Corrected CA is ~ 8.5 Check PTH 297, above goal for CKD 4 (where baseline kidney function was) Continue Calcium acetate D/C calcium carbonate start Calcitriol 0.25mcg daily Melvin Johnson DO
--- NOTE | 2016-02-25 11:56 | PN ---
Progress Note (short form) - Note Progress Note: Renal Follow up for KARLOS Pt seen and examined at the bedside no acute complaints Vital Signs Temperature 97.4 F L 02/25/16 06:00 Pulse Rate 78 02/25/16 06:00 Respiratory Rate 18 02/25/16 06:00 Blood Pressure 116/67 02/25/16 06:00 O2 Sat by Pulse Oximetry (%) 95 02/25/16 10:18 Intake & Output 02/22/16 02/23/16 02/24/16 02/25/16 23:59 23:59 23:59 23:59 Intake Total 1120 880 680 50 Output Total 700 740 670 Balance 420 140 10 50 Weight 319 lb 2 oz 312 lb 8 oz 312 lb 2 oz Gen: NAD CVS: RRR No M/R Lungs: CTA Abd: Soft NT + Mild distension Ext: > 3+ LE Lymph edema, no cyanosis or clubbing HD Access: Right IJ trialysis catheter CBC, BMP 02/25/16 08:25 02/25/16 08:17 Laboratory Tests 02/25/16 08:17 Calcium 7.6 L Phosphorus 5.5 H Magnesium 2.6 H Current Medications Albuterol Sulfate (Ventolin 0.083% Nebulizer Soln -) 1 amp NEB Q4H PRN PRN Reason: SHORT OF BREATH/WHEEZING Last Admin: 02/24/16 06:45 Dose: 1 amp Arformoterol Tartrate (Brovana (Restricted To Pulmonology/Resp) -) 1 amp NEB BID [facility] Last Admin: 02/25/16 10:19 Dose: 1 amp Aspirin (Ecotrin -) 81 mg PO DAILY [facility] Last Admin: 02/25/16 09:32 Dose: 81 mg Calcitriol (Rocaltrol -) 0.25 mcg PO DAILY [facility] Last Admin: 02/25/16 09:32 Dose: 0.25 mcg Calcium Acetate (Phoslo -) 667 mg PO TIDCM [facility] Last Admin: 02/25/16 08:30 Dose: 667 mg Clindamycin HCl (Cleocin -) 300 mg PO Q6HPO [facility] Last Admin: 02/25/16 06:55 Dose: 300 mg Duloxetine HCl (Cymbalta -) 20 mg PO DAILY [facility] Last Admin: 02/25/16 09:31 Dose: 20 mg Guaifenesin (Diabetic Tussin Dm -) 5 ml PO Q4H PRN PRN Reason: COUGH Heparin Sodium (Porcine) (Heparin -) 5,000 unit SQ Q8H-IV [facility] Last Admin: 02/25/16 09:39 Dose: Not Given Hydralazine HCl (Apresoline -) 50 mg PO BID [facility] Last Admin: 02/25/16 09:31 Dose: 50 mg Aztreonam 1 gm/ Dextrose 50 mls @ 100 mls/hr IVPB Q8H-IV [facility] Last Admin: 02/25/16 09:32 Dose: 100 mls/hr Prasugrel (Effient -) 10 mg PO DAILY [facility] Last Admin: 02/25/16 09:32 Dose: 10 mg Prednisone (Deltasone -) 30 mg PO DAILY [facility] Last Admin: 02/25/16 09:31 Dose: 30 mg Pregabalin (Lyrica -) 25 mg PO DAILY [facility] Last Admin: 02/25/16 09:31 Dose: 25 mg Tiotropium [place] (Spiriva -) 1 puff IH DAILY [facility] Last Admin: 02/25/16 09:31 Dose: 1 inh A/P 75 year old Gentleman with PMhx of CKD Stage 3 (baseline Cr 1.9), Hx of Nephrolithiasis, Hypertension, COPD, CHF, PVD, Chronic LE lymph edema who was sent into the ED from wound care for increased lethargy and decreased urination for several days with KARLOS with BUN/Cr of 115/7.2 and K of 6.5 #Acute Renal Failure on CKD Pt is now non-oliguric, Cr improved BUN elevated but partly due to steroids no signs of uremia no indication for further dialysis Trialysis catheter can be removed start Lasix 80mg Once daily To follow up in the office on discharge avoid NSAIDs, IV Contrast #Hypocalcemia/Hyperphosphatemia/Secondary Hyperparatyrodism Continue Phoslo for now as Phos ~5.5, will trend as outpatient continue Calcitriol for now #Microcytic Anemia Check stool occult blood Give Procrit unnits SC x 1 today (hx of CKD) iron stores at goal Melvin Johnson DO
--- NOTE | 2016-02-25 14:12 | PN ---
Physical Exam: SUBJECTIVE: Patient seen and examined at bedside in AM. Roy well at the time and denied any complaints. Denied CP, SOB, cough, N/V/F/C. Has continued to urinate. When seen later in the day to remove central line pt became extremely SOB moving from wheelchair to bed (approximately 2-3 feet). Will remove central line when pt is feeling better. OBJECTIVE: Vital Signs Temperature 97.9 F 02/25/16 10:00 Pulse Rate 85 02/25/16 10:00 Respiratory Rate 18 02/25/16 10:00 Blood Pressure 142/67 02/25/16 10:00 O2 Sat by Pulse Oximetry (%) 95 02/25/16 10:18 GENERAL: The patient is awake, alert, and fully oriented, in no acute distress. Sitting in bed comfortably on 3L NC earlier in day. After moving from chair to bed pt was extremely short of breath. HEAD: Normal with no signs of trauma. EYES: conjunctiva clear. No ptosis. ENT: moist mucous membranes. NECK: Trachea midline, full range of motion. LUNGS: Diminished breath sounds. Did not appreciate crackles or wheezing. HEART: Distant heart sounds. Regular rate and rhythm, S1, S2 without murmur, rub or gallop. ABDOMEN: Soft, obese, nontender, nondistended, normoactive bowel sounds, no guarding, no rebound, no hepatosplenomegaly, no masses. EXTREMITIES: 2+ pulses, warm, well-perfused, B/L cellulitic changes, B/L LE pitting edema and alvarado crusted chronic lesions. NEUROLOGICAL: Normal speech, gait not observed. PSYCH: Normal mood, normal affect. SKIN: Warm, dry, normal turgor. Laboratory Results - last 24 hr 02/24/16 02/25/16 02/25/16 06:15 08:17 08:25 WBC 7.9 RBC 3.04 L Hgb 7.6 L Hct 23.5 L MCV 77.2 L MCHC 32.4 RDW 16.9 H Plt Count 177 MPV 7.8 Sodium 144 Potassium 4.3 Chloride 105 Carbon Dioxide 28 Anion Gap 11 BUN 103 H Creatinine 4.5 H Random Glucose 78 Calcium 7.6 L Phosphorus 5.5 H Magnesium 2.6 H Iron 60 TIBC 231 L Iron Saturation 26 02/25/16 08:25 WBC RBC Hgb Hct MCV MCHC RDW Plt Count MPV Sodium Potassium Chloride Carbon Dioxide Anion Gap BUN Creatinine Random Glucose Calcium Phosphorus Cancelled Magnesium Cancelled Iron TIBC Iron Saturation Active Medications Generic Name Dose Route Start Last Admin Trade Name Freq PRN Reason Stop Dose Admin Albuterol Sulfate 1 amp 02/23/16 16:12 02/24/16 06:45 Ventolin 0.083% Nebulizer Soln - NEB 1 amp Q4H PRN Administration SHORT OF BREATH/WHEEZING Arformoterol Tartrate 1 amp 02/23/16 22:00 02/25/16 10:19 Brovana (Restricted To Pulmonology/Resp) - NEB 1 amp BID [facility] Administration Aspirin 81 mg 02/24/16 10:00 02/25/16 09:32 Ecotrin - PO 81 mg DAILY [facility] Administration Calcitriol 0.25 mcg 02/24/16 12:45 02/25/16 09:32 Rocaltrol - PO 0.25 mcg DAILY [facility] Administration Calcium Acetate 667 mg 02/23/16 17:30 02/25/16 12:32 Phoslo - PO 667 mg TIDCM [facility] Administration Clindamycin HCl 300 mg 02/23/16 18:00 02/25/16 12:32 Cleocin - PO 300 mg Q6HPO [facility] Administration Duloxetine HCl 20 mg 02/24/16 10:00 02/25/16 09:31 Cymbalta - PO 20 mg DAILY [facility] Administration Epoetin [place] 20,000 unit 02/25/16 11:56 Procrit - SQ 02/25/16 11:57 ONCE ONE Guaifenesin 5 ml 02/22/16 22:29 Diabetic Tussin Dm - PO Q4H PRN COUGH Heparin Sodium (Porcine) 5,000 unit 02/23/16 18:00 02/25/16 09:39 Heparin - SQ Not Given Q8H-IV [facility] Hydralazine HCl 50 mg 02/23/16 22:00 02/25/16 09:31 Apresoline - PO 50 mg BID [facility] Administration Aztreonam 1 gm/ Dextrose 50 mls @ 100 mls/hr 02/23/16 18:00 02/25/16 09:32 IVPB 100 mls/hr Q8H-IV [facility] Administration Prasugrel 10 mg 02/24/16 10:00 02/25/16 09:32 Effient - PO 10 mg DAILY [facility] Administration Prednisone 30 mg 02/24/16 10:00 02/25/16 09:31 Deltasone - PO 30 mg DAILY [facility] Administration Pregabalin 25 mg 02/24/16 10:00 02/25/16 09:31 Lyrica - PO 25 mg DAILY [facility] Administration Tiotropium Start 1 puff 02/22/16 11:15 02/25/16 09:31 Spiriva - IH 1 inh DAILY [facility] Administration ASSESSMENT/PLAN: 75 year-old man with a PMH of HTN, PVD, COPD, CKD (baseline Cr 1.9), nephrolithiasis, and chronic LE lymphedema. Admitted for acute renal failure ( hyperkalemia) and respiratory distress. 1. Acute on chronic renal failure -BUN/Cr 103/4.5 (baseline 1.8), creatinine improving. -urine: 670 ml yesterday, 150 ml so far today. -HD as per nephrology -no HD for now, will remove catheter. 2. Acute Hyperkalemia -resolved -4.3 today, improved -on HD -f/u bmp 3. Acute COPD exacerbation with hypercapnic respiratory failure -Bipap as needed -NC O2 3L. Still oxygenating well -SOB when moving -Pre and post amb oxygen sat ordered again for today -brovana, albuterol PRN -prednisone 30 mg PO qd (day 2), taper -will require higher O2 at home when ambulating. Currently on 2L O2 at all times, may require 2L at rest and more while ambulating. 4. Anemia -Multiple Myeloma (kidney failure + anemia) -SADAF M-spike not observed -Anemia of chronic disease, TIBC low -FOBT ordered 4. Sepsis secondary to B/L lower extremity cellulitis -improved -BCx (-) X 5 days; UCx negative -ID on board -clindamycin 300 mg PO q6h -c/w aztreonam 1gm q8h -change to PO equivalent? 5. HTN -hydralazine 50 mg PO bid -htn better controlled on hydralazine bid 6. Hx of Depression -c/w cymbalta 7. CAD -prasugrel 10 mg PO qd 8. FEN -hyperkalemia resolved - on HD - Ca - 7.6, improving -hypocalcemia - calcium carbonate 9. Dispo: monitor on floors. Problem List - Problems (1) Acute kidney failure Code(s): N17.9 - ACUTE KIDNEY FAILURE, UNSPECIFIED Qualifiers: Acute renal failure type: unspecified Qualified Code(s): N17.9 - Acute kidney failure, unspecified (2) COPD exacerbation Code(s): J44.1 - CHRONIC OBSTRUCTIVE PULMONARY DISEASE W (ACUTE) EXACERBATION (3) Hyperkalemia Code(s): E87.5 - HYPERKALEMIA (4) Acute and chronic respiratory failure ([id number]) Code(s): J96.20 - ACUTE AND CHR RESP FAILURE, UNSP W HYPOXIA OR HYPERCAPNIA Qualifiers: Respiratory failure complication: hypoxia and hypercapnia Qualified Code(s): J96.21 - Acute and chronic respiratory failure with hypoxia (5) Acute exacerbation of chronic obstructive pulmonary disease (COPD) Code(s): J44.1 - CHRONIC OBSTRUCTIVE PULMONARY DISEASE W (ACUTE) EXACERBATION (6) Acute on chronic diastolic (congestive) heart failure Code(s): I50.33 - ACUTE ON CHRONIC DIASTOLIC (CONGESTIVE) HEART FAILURE (7) Anxiety and depression Code(s): F41.9 - ANXIETY DISORDER, UNSPECIFIED F32.9 - MAJOR DEPRESSIVE DISORDER, SINGLE EPISODE, UNSPECIFIED (8) Cellulitis Code(s): L03.90 - CELLULITIS, UNSPECIFIED Qualifiers: Site of cellulitis of extremity: lower extremity (9) Chronic kidney disease (CKD) Code(s): N18.9 - CHRONIC KIDNEY DISEASE, UNSPECIFIED Qualifiers: Chronic kidney disease stage: unspecified stage Qualified Code(s): N18.9 - Chronic kidney disease, unspecified (10) Diastolic CHF Code(s): I50.30 - UNSPECIFIED DIASTOLIC (CONGESTIVE) HEART FAILURE (11) Hyperlipidemia Code(s): E78.5 - HYPERLIPIDEMIA, UNSPECIFIED (12) Hypertension Code(s): I10 - ESSENTIAL (PRIMARY) HYPERTENSION (13) Obesities, morbid Code(s): E66.01 - MORBID (SEVERE) OBESITY DUE TO EXCESS CALORIES Qualifiers: Obesity type: with alveolar hypoventilation Qualified Code(s): E66.2 - Morbid (severe) obesity with alveolar hypoventilation (14) Respiratory failure with hypoxia and hypercapnia Code(s): J96.91 - RESPIRATORY FAILURE, UNSPECIFIED WITH HYPOXIA J96.92 - RESPIRATORY FAILURE, UNSPECIFIED WITH HYPERCAPNIA Qualifiers: Chronicity: acute on chronic Qualified Code(s): J96.21 - Acute and chronic respiratory failure with hypoxia; J96.22 - Acute and chronic respiratory failure with hypercapnia (15) Shortness of breath Code(s): R06.02 - SHORTNESS OF BREATH Visit type - Emergency Visit Emergency Visit: Yes ED Registration Date: 02/18/16 Care time: The patient presented to the Emergency Department on the above date and was hospitalized for further evaluation of their emergent condition. - New Patient This patient is new to me today: No - Critical Care Critical Care patient: No
--- NOTE | 2016-02-25 16:30 | PN ---
Progress Note, Physician History of Present Illness: patient doing well no issues sitting in chair patient not feeling very well plan to remove the dialysis cath legs looking better and dry - Current Medication List Current Medications: Active Medications Albuterol Sulfate (Ventolin 0.083% Nebulizer Soln -) 1 amp NEB Q4H PRN PRN Reason: SHORT OF BREATH/WHEEZING Last Admin: 02/24/16 06:45 Dose: 1 amp Arformoterol Tartrate (Brovana (Restricted To Pulmonology/Resp) -) 1 amp NEB BID [facility] Last Admin: 02/25/16 10:19 Dose: 1 amp Aspirin (Ecotrin -) 81 mg PO DAILY [facility] Last Admin: 02/25/16 09:32 Dose: 81 mg Calcitriol (Rocaltrol -) 0.25 mcg PO DAILY [facility] Last Admin: 02/25/16 09:32 Dose: 0.25 mcg Calcium Acetate (Phoslo -) 667 mg PO TIDCM [facility] Last Admin: 02/25/16 12:32 Dose: 667 mg Clindamycin HCl (Cleocin -) 300 mg PO Q6HPO [facility] Last Admin: 02/25/16 12:32 Dose: 300 mg Duloxetine HCl (Cymbalta -) 20 mg PO DAILY [facility] Last Admin: 02/25/16 09:31 Dose: 20 mg Epoetin [place] (Procrit -) 20,000 unit SQ ONCE ONE Stop: 02/25/16 11:57 Guaifenesin (Diabetic Tussin Dm -) 5 ml PO Q4H PRN PRN Reason: COUGH Heparin Sodium (Porcine) (Heparin -) 5,000 unit SQ Q8H-IV [facility] Last Admin: 02/25/16 09:39 Dose: Not Given Hydralazine HCl (Apresoline -) 50 mg PO BID [facility] Last Admin: 02/25/16 09:31 Dose: 50 mg Aztreonam 1 gm/ Dextrose 50 mls @ 100 mls/hr IVPB Q8H-IV [facility] Last Admin: 02/25/16 09:32 Dose: 100 mls/hr Prasugrel (Effient -) 10 mg PO DAILY [facility] Last Admin: 02/25/16 09:32 Dose: 10 mg Prednisone (Deltasone -) 30 mg PO DAILY [facility] Last Admin: 02/25/16 09:31 Dose: 30 mg Pregabalin (Lyrica -) 25 mg PO DAILY [facility] Last Admin: 02/25/16 09:31 Dose: 25 mg Tiotropium [place] (Spiriva -) 1 puff IH DAILY [facility] Last Admin: 02/25/16 09:31 Dose: 1 inh - Objective Vital Signs: Vital Signs Temperature 97.9 F 02/25/16 14:54 Pulse Rate 93 H 02/25/16 14:54 Respiratory Rate 21 02/25/16 14:54 Blood Pressure 158/68 02/25/16 14:54 O2 Sat by Pulse Oximetry (%) 95 02/25/16 10:18 Constitutional: Yes: Calm, Mild Distress Cardiovascular: Yes: Regular Rate and Rhythm Respiratory: Yes: Poor Air Entry Gastrointestinal: Yes: Normal Bowel Sounds, Soft Musculoskeletal: Yes: WNL Extremities: Yes: Other (bilateral edema) Edema: LLE: 2+, RLE: 2+ Neurological: Yes: Alert, Oriented Labs: CBC, BMP 02/25/16 08:25 02/25/16 08:17 INR, PTT INR 1.12 (0.82-1.09) 02/18/16 13:00 Assessment/Plan 75 year-old man with a PMH of HTN, PVD, COPD, CKD (baseline Cr 1.9), nephrolithiasis, and chronic LE lymphedema. Admitted in acute renal failure. Acute on chronic renal failure Hyperkalemia Sepsis s Hypertension Peripheral vascular disease Hypercarbic respiratory failure COPD bilateral cellulitis of the legs plan changed clinda to oral can stop iv abx continue clinda close watch
--- NOTE | 2016-02-25 16:48 | PN ---
Progress Note, Physician - Current Medication List Current Medications: Active Medications Albuterol Sulfate (Ventolin 0.083% Nebulizer Soln -) 1 amp NEB Q4H PRN PRN Reason: SHORT OF BREATH/WHEEZING Last Admin: 02/24/16 06:45 Dose: 1 amp Arformoterol Tartrate (Brovana (Restricted To Pulmonology/Resp) -) 1 amp NEB BID [facility] Last Admin: 02/25/16 10:19 Dose: 1 amp Aspirin (Ecotrin -) 81 mg PO DAILY [facility] Last Admin: 02/25/16 09:32 Dose: 81 mg Calcitriol (Rocaltrol -) 0.25 mcg PO DAILY [facility] Last Admin: 02/25/16 09:32 Dose: 0.25 mcg Calcium Acetate (Phoslo -) 667 mg PO TIDCM [facility] Last Admin: 02/25/16 12:32 Dose: 667 mg Clindamycin HCl (Cleocin -) 300 mg PO Q6HPO [facility] Last Admin: 02/25/16 12:32 Dose: 300 mg Duloxetine HCl (Cymbalta -) 20 mg PO DAILY [facility] Last Admin: 02/25/16 09:31 Dose: 20 mg Epoetin [place] (Procrit -) 20,000 unit SQ ONCE ONE Stop: 02/25/16 11:57 Guaifenesin (Diabetic Tussin Dm -) 5 ml PO Q4H PRN PRN Reason: COUGH Heparin Sodium (Porcine) (Heparin -) 5,000 unit SQ Q8H-IV [facility] Last Admin: 02/25/16 09:39 Dose: Not Given Hydralazine HCl (Apresoline -) 50 mg PO BID [facility] Last Admin: 02/25/16 09:31 Dose: 50 mg Prasugrel (Effient -) 10 mg PO DAILY [facility] Last Admin: 02/25/16 09:32 Dose: 10 mg Prednisone (Deltasone -) 30 mg PO DAILY [facility] Last Admin: 02/25/16 09:31 Dose: 30 mg Pregabalin (Lyrica -) 25 mg PO DAILY [facility] Last Admin: 02/25/16 09:31 Dose: 25 mg Tiotropium [place] (Spiriva -) 1 puff IH DAILY [facility] Last Admin: 02/25/16 09:31 Dose: 1 inh - Objective Vital Signs: Vital Signs Temperature 97.9 F 02/25/16 14:54 Pulse Rate 93 H 02/25/16 14:54 Respiratory Rate 21 02/25/16 14:54 Blood Pressure 158/68 02/25/16 14:54 O2 Sat by Pulse Oximetry (%) 95 02/25/16 10:18 Labs: CBC, BMP 02/25/16 08:25 02/25/16 08:17 INR, PTT INR 1.12 (0.82-1.09) 02/18/16 13:00 Problem List - Problems (1) COPD exacerbation Code(s): J44.1 - CHRONIC OBSTRUCTIVE PULMONARY DISEASE W (ACUTE) EXACERBATION (2) Acute and chronic respiratory failure ([id number]) Code(s): J96.20 - ACUTE AND CHR RESP FAILURE, UNSP W HYPOXIA OR HYPERCAPNIA Qualifiers: Respiratory failure complication: hypoxia and hypercapnia Qualified Code(s): J96.21 - Acute and chronic respiratory failure with hypoxia (3) Acute kidney failure Code(s): N17.9 - ACUTE KIDNEY FAILURE, UNSPECIFIED Qualifiers: Acute renal failure type: unspecified Qualified Code(s): N17.9 - Acute kidney failure, unspecified (4) Chronic kidney disease (CKD) Code(s): N18.9 - CHRONIC KIDNEY DISEASE, UNSPECIFIED Qualifiers: Chronic kidney disease stage: unspecified stage Qualified Code(s): N18.9 - Chronic kidney disease, unspecified (5) Cellulitis Code(s): L03.90 - CELLULITIS, UNSPECIFIED Qualifiers: Site of cellulitis of extremity: lower extremity (6) Hyperkalemia Code(s): E87.5 - HYPERKALEMIA (7) Arteriosclerotic heart disease (ASHD) Code(s): I25.10 - ATHSCL HEART DISEASE OF LOWER [place] CORONARY ARTERY W/O ANG PCTRS (8) Obesities, morbid Code(s): E66.01 - MORBID (SEVERE) OBESITY DUE TO EXCESS CALORIES Qualifiers: Obesity type: with alveolar hypoventilation Qualified Code(s): E66.2 - Morbid (severe) obesity with alveolar hypoventilation Assessment/Plan COPD Acute on chronic hypercapneic respiratory failure:pt still dyspneic Pt is having "chills": R/O bacteremia. Acute Renal Failure Hyperkalemia Chronic Renal Insufficiency: Creatinine 4.5 BUN 103 Hgb 7.6 K 4.3 ASHD: No chest pain or palpitations Plan: Blood and urine culture CXR Steroid taper inhaled bronchodilator NIPPV prn
--- NOTE | 2016-02-25 18:05 | PN ---
Teaching Attending Note Name of Resident: Freddie Strickland ATTENDING PHYSICIAN STATEMENT I saw and evaluated the patient. I reviewed the resident's note and discussed the case with the resident. I agree with the resident's findings and plan as documented. SUBJECTIVE: no fever or chills, no abd pain . feels cold and has chills . OBJECTIVE: chills CV: RRR Lungs: scattered wheezes . ext; thick skin , non pitting edema , green dry exudate posteriorly on legs with resolving erythema , no increased warmth . obese abd , nT ASSESSMENT AND PLAN: 75 year-old man with a PMHx of HTN, PVD, COPD, CKD (baseline Cr 1.8), nephrolithiasis, and chronic LE lymphedema. presented with SOB and was found to have acute hypercapnic resp failure with acute resp failure . 1- acute hypercapnic resp failure due to COPD exa: pt intermittently SOB . -cont steroids - cont Nebs - repeat cxray - agree with repeating blood cx 2- cellultis of LE : cont PO clinda. off azactam 3- KARLOS on CKD : unclear etiology ,no M spike on SPEP ? ATN due to volume depletion - PTH elevated , started calcitriol - hyperkalemia resolved - removed HD cath , in flat position , with patient exhaling . no bleeding happened. presure applied for 10 min 4- microcytic anemia . - no evidence of iron def ( ACD ) - FOBT 5- uncontrolled HTN: cont HZN BID . BP improved 6- PT EVALUATION : ambulated well . limited with SOB . pre and post ambulatory pulse ox . needs 3 L with ambulation . will need to repeat before dc will dc in 48 hr if blood cx neg . refused rehab ASSESSMENT AND PLAN:
[2016-02-26] MEDS: CLINDAMYCIN HCL 150 MG CAPSULE (FP) PO SCH ×4 (00:35→17:40)
[2016-02-26] MEDS: HEPARIN NA (PORCINE) 5,000 UNITS/ML 1ML VIAL SQ SCH ×3 (03:12→17:41)
[2016-02-26] MEDS: ALBUTEROL SO4 0.083% IH SOL 2.5 MG/3 ML VIAL.NEB. NEB PRN ×2 (04:42→14:05)
--- NOTE | 2016-02-26 08:30 | PN ---
Progress Note (short form) - Note Progress Note: Subjective: feels chilly , he reports being cold at home too, and always wears a sweater . no OSB , had a treatmetn today , but reports a lot of mucus secretions Objective: Vital Signs: Last Vital Signs Temp Pulse Resp BP Pulse Ox 97.7 F 86 20 152/67 95 02/26/16 06:00 02/26/16 06:00 02/26/16 06:00 02/26/16 06:00 02/25/16 21:00 Physical Exam: shivering , AAOx3 CV: RRR Lungs: good air entry , decreased breath sounds at bases. no wheezes heard today ext; thick skin , non pitting edema , green dry exudate posteriorly on legs with resolving erythema , no increased warmth . Laboratory Results - last 24 hr 02/25/16 02/25/16 02/25/16 08:17 08:25 08:25 WBC 7.9 RBC 3.04 L Hgb 7.6 L Hct 23.5 L MCV 77.2 L MCHC 32.4 RDW 16.9 H Plt Count 177 MPV 7.8 Sodium 144 Potassium 4.3 Chloride 105 Carbon Dioxide 28 Anion Gap 11 BUN 103 H Creatinine 4.5 H Random Glucose 78 Calcium 7.6 L Phosphorus 5.5 H Cancelled Magnesium 2.6 H Cancelled ASSESSMENT AND PLAN: 75 year-old man with a PMHx of HTN, PVD, COPD, CKD (baseline Cr 1.8), nephrolithiasis, and chronic LE lymphedema. presented with SOB and was found to have acute hypercapnic resp failure with acute resp failure . 1- acute hypercapnic resp failure due to COPD exa: - give 30 mg of prednisone today , then start 20 tomorrow - cont Nebs - add mucomyst Nebs BID - cxray shows possible increased changes in bases, on my review of image , I think this could be atelectasis . will follow patient clinically 2- cellultis of LE : cont PO clinda. off azactam 3- KARLOS on CKD : unclear etiology ,no M spike on SPEP ? ATN due to volume depletion - stable renal function - cont calcitriol - f/u as out pt 4- microcytic anemia . - no evidence of iron def ( ACD ) - FOBT 5- uncontrolled HTN: cont HZN BID . BP improved 6- PT EVALUATION done . pt is willing to go home with VNS need pre-post ambulatory pulse ox before dc will dc on Sunday if blood cx neg , and condition remains stable Visit type - Emergency Visit Emergency Visit: Yes ED Registration Date: 02/18/16 Care time: The patient presented to the Emergency Department on the above date and was hospitalized for further evaluation of their emergent condition. - New Patient This patient is new to me today: No - Critical Care Critical Care patient: No
[2016-02-26 08:45] LABS: MCH 24.8 pg (25.7-33.7); MCHC 31.9 g/dl (32.0-35.9); MEAN CELL VOLUME 77.6 fl (80-96); MEAN PLT VOLUME 7.9 fl (7.5-11.1); PLATELET COUNT 180 K/MM3 (134-434); RDW 16.8 % (11.9-15.9); WHITE BLOOD COUNT 9.2 K/mm3 (4.0-10.0)
[2016-02-26] MEDS: CALCIUM ACETATE 667 MG CAPSULE (FP) PO SCH ×3 (08:48→17:40)
[2016-02-26 09:05] LABS: CALCIUM 7.7 mg/dL (8.5-10.1); CREATININE 4.4 mg/dL (0.7-1.3); MAGNESIUM 2.5 mg/dL (1.8-2.4); PHOSPHOROUS 5.4 mg/dL (2.5-4.9)
[2016-02-26] MEDS: ARFORMOTEROL TARTRATE 15 MCG/2 ML VIAL NEB SCH ×2 (09:35→22:15)
[2016-02-26] MEDS: ACETYLCYSTEINE 20% 200MG/ML 4 ML VIAL *FOR ORAL / INH USE ONLY NEB SCH ×2 (09:35→22:15)
[2016-02-26] MEDS ORDERED: PT OWN MED DRAWER 7, Y5N ONE ×2 (09:57→10:46)
[2016-02-26] MEDS ORDERED: predniSONE 10 MG TABLET (UD) PO SCH (10:00)
[2016-02-26] MEDS: hydrALAZINE HCL 50 MG TABLET (FP) PO SCH ×2 (10:51→21:44)
[2016-02-26] MEDS: PREGABALIN 25 MG CAPSULE PO SCH (10:51)
[2016-02-26] MEDS: ASPIRIN COATED 81 MG TABLET.EC PO SCH (10:51)
[2016-02-26] MEDS: DULoxetine HCL 20 MG CAPSULE.DR (FP) PO SCH (10:53)
[2016-02-26] MEDS: PRASUGREL HCL 10 MG TAB PO SCH (10:53)
[2016-02-26] MEDS: CALCITRIOL 0.25 MCG CAPSULE (FP) PO SCH (10:54)
[2016-02-26] MEDS: TIOTROPIUM BROMIDE 18 MCG/INH (DEVICE W/ 5 CAPSULES) IH SCH (10:55)
[2016-02-26] MEDS: guaiFENesin/D-M SUGAR-FREE/ACLHOL-FREE 118 ML BOTTLE PO PRN (10:57)
[2016-02-26] MEDS ORDERED: EPOETIN ALFA 20,000 UNIT/1 ML VIAL SQ ONE (11:30)
--- NOTE | 2016-02-26 13:09 | PN ---
Progress Note (short form) - Note Progress Note: Renal Follow up for KARLOS Pt seen and examined at the bedside reports mild chest congestion and sob no fever, chills, N/V/D good urine output Vital Signs Temperature 97.7 F 02/26/16 06:00 Pulse Rate 84 02/26/16 11:17 Respiratory Rate 20 02/26/16 06:00 Blood Pressure 152/67 02/26/16 06:00 O2 Sat by Pulse Oximetry (%) 91 L 02/26/16 11:17 Intake & Output 02/23/16 02/24/16 02/25/16 02/26/16 23:59 23:59 23:59 23:59 Intake Total 880 680 400 280 Output Total 740 670 150 Balance 140 10 250 280 Weight 312 lb 8 oz 312 lb 2 oz 319 lb 8 oz Gen: NAD CVS: RRR No M/R Lungs: dec BS throughout the lung rey Abd: Soft NT + Mild distension Ext: > 3+ LE Lymph edema, no cyanosis or clubbing CBC, BMP 02/26/16 07:45 02/26/16 07:45 Laboratory Tests 02/26/16 07:45 Phosphorus 5.4 H Magnesium 2.5 H Current Medications Acetylcysteine (Mucomyst 20 Oral / Inh Use Only*) 200 mg NEB BID [facility] Last Admin: 02/26/16 09:35 Dose: Not Given Albuterol Sulfate (Ventolin 0.083% Nebulizer Soln -) 1 amp NEB Q4H PRN PRN Reason: SHORT OF BREATH/WHEEZING Last Admin: 02/26/16 04:42 Dose: 1 amp Arformoterol Tartrate (Brovana (Restricted To Pulmonology/Resp) -) 1 amp NEB BID [facility] Last Admin: 02/26/16 09:35 Dose: 1 amp Aspirin (Ecotrin -) 81 mg PO DAILY [facility] Last Admin: 02/26/16 10:51 Dose: 81 mg Calcitriol (Rocaltrol -) 0.25 mcg PO DAILY [facility] Last Admin: 02/26/16 10:54 Dose: 0.25 mcg Calcium Acetate (Phoslo -) 667 mg PO TIDCM [facility] Last Admin: 02/26/16 12:30 Dose: 667 mg Clindamycin HCl (Cleocin -) 300 mg PO Q6HPO [facility] Last Admin: 02/26/16 12:30 Dose: 300 mg Duloxetine HCl (Cymbalta -) 20 mg PO DAILY [facility] Last Admin: 02/26/16 10:53 Dose: 20 mg Furosemide (Lasix -) 80 mg PO DAILY [facility] Guaifenesin (Diabetic Tussin Dm -) 5 ml PO Q4H PRN PRN Reason: COUGH Last Admin: 02/26/16 10:57 Dose: 5 ml Heparin Sodium (Porcine) (Heparin -) 5,000 unit SQ Q8H-IV [facility] Last Admin: 02/26/16 10:51 Dose: Not Given Hydralazine HCl (Apresoline -) 50 mg PO BID [facility] Last Admin: 02/26/16 10:51 Dose: 50 mg Prasugrel (Effient -) 10 mg PO DAILY [facility] Last Admin: 02/26/16 10:53 Dose: 10 mg Prednisone (Deltasone -) 20 mg PO DAILY [facility] Pregabalin (Lyrica -) 25 mg PO DAILY [facility] Last Admin: 02/26/16 10:51 Dose: 25 mg Tiotropium [place] (Spiriva -) 1 puff IH DAILY [facility] Last Admin: 02/26/16 10:55 Dose: 1 inh A/P 75 year old Gentleman with PMhx of CKD Stage 3 (baseline Cr 1.9), Hx of Nephrolithiasis, Hypertension, COPD, CHF, PVD, Chronic LE lymph edema who was sent into the ED from wound care for increased lethargy and decreased urination for several days with KARLOS with BUN/Cr of 115/7.2 and K of 6.5 #Acute Renal Failure on CKD Cr improving BUN elevated but likely partly due to steroids Pt is non-oliguric start Lasix 80mg Daily for management of edema and mild chest congestion #Hypocalcemia/Hyperphosphatemia/Secondary Hyperparatyrodism Continue Phoslo for now continue Calcitriol for now #Microcytic Anemia Check stool occult blood Give Procrit 10422 units SC x 1(given today) iron stores at goal Melvin Johnson DO
--- NOTE | 2016-02-26 13:31 | PN ---
Progress Note, Physician History of Present Illness: still has sob patient coughing chext xray findings noted - Current Medication List Current Medications: Active Medications Acetylcysteine (Mucomyst 20 Oral / Inh Use Only*) 200 mg NEB BID [facility] Last Admin: 02/26/16 09:35 Dose: Not Given Albuterol Sulfate (Ventolin 0.083% Nebulizer Soln -) 1 amp NEB Q4H PRN PRN Reason: SHORT OF BREATH/WHEEZING Last Admin: 02/26/16 04:42 Dose: 1 amp Arformoterol Tartrate (Brovana (Restricted To Pulmonology/Resp) -) 1 amp NEB BID [facility] Last Admin: 02/26/16 09:35 Dose: 1 amp Aspirin (Ecotrin -) 81 mg PO DAILY [facility] Last Admin: 02/26/16 10:51 Dose: 81 mg Calcitriol (Rocaltrol -) 0.25 mcg PO DAILY [facility] Last Admin: 02/26/16 10:54 Dose: 0.25 mcg Calcium Acetate (Phoslo -) 667 mg PO TIDCM [facility] Last Admin: 02/26/16 12:30 Dose: 667 mg Clindamycin HCl (Cleocin -) 300 mg PO Q6HPO [facility] Last Admin: 02/26/16 12:30 Dose: 300 mg Duloxetine HCl (Cymbalta -) 20 mg PO DAILY [facility] Last Admin: 02/26/16 10:53 Dose: 20 mg Furosemide (Lasix -) 80 mg PO DAILY [facility] Guaifenesin (Diabetic Tussin Dm -) 5 ml PO Q4H PRN PRN Reason: COUGH Last Admin: 02/26/16 10:57 Dose: 5 ml Heparin Sodium (Porcine) (Heparin -) 5,000 unit SQ Q8H-IV [facility] Last Admin: 02/26/16 10:51 Dose: Not Given Hydralazine HCl (Apresoline -) 50 mg PO BID [facility] Last Admin: 02/26/16 10:51 Dose: 50 mg Prasugrel (Effient -) 10 mg PO DAILY [facility] Last Admin: 02/26/16 10:53 Dose: 10 mg Prednisone (Deltasone -) 20 mg PO DAILY [facility] Pregabalin (Lyrica -) 25 mg PO DAILY [facility] Last Admin: 02/26/16 10:51 Dose: 25 mg Tiotropium [place] (Spiriva -) 1 puff IH DAILY [facility] Last Admin: 02/26/16 10:55 Dose: 1 inh - Objective Vital Signs: Vital Signs Temperature 97.7 F 02/26/16 06:00 Pulse Rate 84 02/26/16 11:17 Respiratory Rate 20 02/26/16 06:00 Blood Pressure 152/67 02/26/16 06:00 O2 Sat by Pulse Oximetry (%) 91 L 02/26/16 11:17 Constitutional: Yes: Calm, Mild Distress Cardiovascular: Yes: Regular Rate and Rhythm Respiratory: Yes: Poor Air Entry, Rhonchi Gastrointestinal: Yes: Normal Bowel Sounds, Soft Extremities: Yes: Other (looking good eryhema resolving) Edema: LLE: 2+, RLE: 2+ Neurological: Yes: Alert, Oriented Psychiatric: Yes: Alert, Oriented Labs: CBC, BMP 02/26/16 07:45 02/26/16 07:45 INR, PTT INR 1.12 (0.82-1.09) 02/18/16 13:00 Assessment/Plan 75 year-old man with a PMH of HTN, PVD, COPD, CKD (baseline Cr 1.9), nephrolithiasis, and chronic LE lymphedema. Admitted in acute renal failure. Acute on chronic renal failure Hyperkalemia Sepsis s Hypertension Peripheral vascular disease Hypercarbic respiratory failure COPD bilateral cellulitis of the legs plan continue clinda incentive igor--important chest physio important close monitoring
[2016-02-26] MEDS: FUROSEMIDE 40 MG TABLET (FP) PO SCH (14:19)
[2016-02-26 15:17] LABS: ARTERIAL BLD GAS O2 SATURATION 97.7 % (90-98.9); ARTERIAL BLOOD GAS BASE EXCESS -1.6 meq/l (-2-2); ARTERIAL BLOOD GAS pH 7.37 (7.35-7.45)
[2016-02-26 15:18] LABS: ALLENS TEST POSITIVE; ART PUNCT SITE LEFT RADIAL; LPM/O2% 40%; MECH. VENT. BIPAP; PT. ON O2? YES; TYPE OF O2 BIPAP(FEW MINUTE0
[2016-02-26 15:19] LABS: VENT RATE 10
--- NOTE | 2016-02-26 15:25 | HOSP ---
Subjective - Review of Symptoms Events since last encounter: called for patient becoming short of breath . he had a big BM and wanted to be wiped in standing position , so he got extremely SOB . SAt O2 91 on 3 L of oxygen , BIPAP placed on him even before VS were taken. upon arrival ( 3 min after BIPAp placed ) , he feels much better , SOB improved , no tachypnia observed. SAt O2 97 % on BIPAP . - will keep BIPAP for 1-2 hours . - check VS - check ABG - cont current management ( breathing treatment , lasix ) Physical Examination Vital Signs: Vital Signs Temperature 97.7 F 02/26/16 06:00 Pulse Rate 84 02/26/16 11:17 Respiratory Rate 20 02/26/16 06:00 Blood Pressure 152/67 02/26/16 06:00 O2 Sat by Pulse Oximetry (%) 91 L 02/26/16 11:17 Labs: CBC, BMP 02/26/16 07:45 02/26/16 07:45
[2016-02-27] MEDS: CLINDAMYCIN HCL 150 MG CAPSULE (FP) PO SCH ×4 (00:45→17:43)
[2016-02-27] MEDS: HEPARIN NA (PORCINE) 5,000 UNITS/ML 1ML VIAL SQ SCH ×3 (01:14→17:43)
[2016-02-27] MEDS: ALBUTEROL SO4 0.083% IH SOL 2.5 MG/3 ML VIAL.NEB. NEB PRN ×3 (02:19→14:40)
[2016-02-27] MEDS: CALCIUM ACETATE 667 MG CAPSULE (FP) PO SCH ×3 (08:35→17:43)
[2016-02-27] MEDS: ACETYLCYSTEINE 20% 200MG/ML 4 ML VIAL *FOR ORAL / INH USE ONLY NEB SCH ×2 (10:00→21:10)
[2016-02-27] MEDS: ARFORMOTEROL TARTRATE 15 MCG/2 ML VIAL NEB SCH ×2 (10:00→21:10)
[2016-02-27] MEDS ORDERED: predniSONE 20 MG TABLET (UD) PO SCH ×2 (10:00→13:30)
[2016-02-27] MEDS: TIOTROPIUM BROMIDE 18 MCG/INH (DEVICE W/ 5 CAPSULES) IH SCH (10:42)
[2016-02-27] MEDS: FUROSEMIDE 40 MG TABLET (FP) PO SCH (10:43)
[2016-02-27] MEDS: ASPIRIN COATED 81 MG TABLET.EC PO SCH (10:43)
[2016-02-27] MEDS: hydrALAZINE HCL 50 MG TABLET (FP) PO SCH ×2 (10:43→21:23)
[2016-02-27] MEDS: guaiFENesin/D-M SUGAR-FREE/ACLHOL-FREE 118 ML BOTTLE PO PRN (10:43)
[2016-02-27] MEDS: PREGABALIN 25 MG CAPSULE PO SCH (10:43)
[2016-02-27] MEDS: CALCITRIOL 0.25 MCG CAPSULE (FP) PO SCH (10:47)
[2016-02-27] MEDS: DULoxetine HCL 20 MG CAPSULE.DR (FP) PO SCH (13:09)
[2016-02-27] MEDS: PRASUGREL HCL 10 MG TAB PO SCH (13:09)
--- NOTE | 2016-02-27 13:43 | PN ---
Progress Note (short form) - Note Progress Note: Subjective: feels better today . last night had another episode of severe SOB with minimal exertion Objective: Vital Signs: Last Vital Signs Temp Pulse Resp BP Pulse Ox 97.9 F 83 20 143/54 96 02/27/16 09:56 02/27/16 11:20 02/27/16 09:56 02/27/16 09:56 02/27/16 11:20 Intake & Output 02/24/16 02/25/16 02/26/16 02/27/16 23:59 23:59 23:59 23:59 Intake Total 985 791 3210 Output Total 670 150 520 Balance 10 250 760 Weight 312 lb 2 oz 319 lb 8 oz Physical Exam: AAOx3 , NAD CV: RRR Lungs: good air entry , decreased breath sounds at bases. no wheezes heard today ext; thick skin , non pitting edema , green dry exudate posteriorly on legs with resolving erythema , no increased warmth . Laboratory Results - last 24 hr 02/26/16 02/26/16 15:10 15:14 Puncture Site Left radial ABG pH 7.37 D ABG pCO2 at Pt Temp 40.6 D ABG pO2 at Pt Temp 105.0 H D ABG HCO3 23.0 ABG O2 Sat (Measured) 97.7 ABG O2 Content 10.8 L ABG Base Excess -1.6 Issac Test Positive O2 Delivery Device Bipap(few minute0 Oxygen Flow Rate 40% Vent Mode S/t Vent Rate 10 Mechanical Rate Bipap PEEP 0.0 Pressure Support Vent 10/5 Stool Occult Blood Negative ASSESSMENT AND PLAN: 75 year-old man with a PMHx of HTN, PVD, COPD, CKD (baseline Cr 1.8), nephrolithiasis, D CHF , CAD s/p stenting in 03/23 and chronic LE lymphedema. presented with SOB and was found to have acute hypercapnic resp failure with acute renal failure . 1- acute hypercapnic resp failure due to COPD exa: pt lung exam is getting better , and he is back on his home oxygen requirement , but he cont to have severe SOB with minimal activities. started on lasix yesterday , but UOP was 500 cc . after treating his acute COPD and with his persistent SOB , I think acute D CHF is playing a role . last echo on admission ( NL EF ) , has a h/o decreased EF but corrected after PCI in 03/22 . - was evaluated by Dr. Ferrer last admission. will ask for help - case was d/w Dr. Sotomayor , will try to increase steroids dose again - cont NEbs - repeat cxray in am - refused labs today - will get CT of chest w/o contrast to evaluate for any infiltrates 2- cellultis of LE : cont PO clinda. 3- KARLOS on CKD: unclear etiology ,no M spike on SPEP ? ATN due to volume depletion - stable renal function. refused labs this am - cont calcitriol - will monitor with diuresis 4- microcytic anemia . - no evidence of iron def ( ACD ) - FOBT 5- uncontrolled HTN: cont HZN BID . BP improved will add coreg 6- HLOC Visit type - Emergency Visit Emergency Visit: Yes ED Registration Date: 02/18/16 Care time: The patient presented to the Emergency Department on the above date and was hospitalized for further evaluation of their emergent condition. - New Patient This patient is new to me today: No - Critical Care Critical Care patient: No
[2016-02-27] MEDS ORDERED: hydrALAZINE HCL 50 MG TABLET (FP) PO ONE (15:00)
[2016-02-27 18:47] LABS: CALCIUM 8.4 mg/dL (8.5-10.1); CREATININE 4.4 mg/dL (0.7-1.3)
[2016-02-27] MEDS: CARVEDILOL 6.25 MG TABLET (FP) PO SCH (21:23)
--- NOTE | 2016-02-27 23:25 | PN ---
Progress Note, Physician History of Present Illness: sob continues to bother him spoke to him in detail says he is still sob legs not bothering him - Current Medication List Current Medications: Active Medications Acetylcysteine (Mucomyst 20 Oral / Inh Use Only*) 200 mg NEB BID [facility] Last Admin: 02/27/16 21:10 Dose: 200 mg Albuterol Sulfate (Ventolin 0.083% Nebulizer Soln -) 1 amp NEB Q4H PRN PRN Reason: SHORT OF BREATH/WHEEZING Last Admin: 02/27/16 14:40 Dose: 1 amp Arformoterol Tartrate (Brovana (Restricted To Pulmonology/Resp) -) 1 amp NEB BID [facility] Last Admin: 02/27/16 21:10 Dose: 1 amp Aspirin (Ecotrin -) 81 mg PO DAILY [facility] Last Admin: 02/27/16 10:43 Dose: 81 mg Calcitriol (Rocaltrol -) 0.25 mcg PO DAILY [facility] Last Admin: 02/27/16 10:47 Dose: 0.25 mcg Calcium Acetate (Phoslo -) 667 mg PO TIDCM [facility] Last Admin: 02/27/16 17:43 Dose: 667 mg Carvedilol (Coreg -) 6.25 mg PO BID [facility] Last Admin: 02/27/16 21:23 Dose: 6.25 mg Clindamycin HCl (Cleocin -) 300 mg PO Q6HPO [facility] Last Admin: 02/27/16 17:43 Dose: 300 mg Duloxetine HCl (Cymbalta -) 20 mg PO DAILY [facility] Last Admin: 02/27/16 13:09 Dose: 20 mg Furosemide (Lasix -) 80 mg PO DAILY [facility] Last Admin: 02/27/16 10:43 Dose: 80 mg Guaifenesin (Diabetic Tussin Dm -) 5 ml PO Q4H PRN PRN Reason: COUGH Last Admin: 02/27/16 10:43 Dose: 5 ml Heparin Sodium (Porcine) (Heparin -) 5,000 unit SQ Q8H-IV [facility] Last Admin: 02/27/16 17:43 Dose: Not Given Hydralazine HCl (Apresoline -) 50 mg PO BID [facility] Last Admin: 02/27/16 21:23 Dose: 50 mg Prasugrel (Effient -) 10 mg PO DAILY [facility] Last Admin: 02/27/16 13:09 Dose: 10 mg Prednisone (Deltasone -) 40 mg PO DAILY [facility] Pregabalin (Lyrica -) 25 mg PO DAILY [facility] Last Admin: 02/27/16 10:43 Dose: 25 mg Tiotropium [place] (Spiriva -) 1 puff IH DAILY [facility] Last Admin: 02/27/16 10:42 Dose: 1 inh - Objective Vital Signs: Vital Signs Temperature 98.2 F 02/27/16 16:59 Pulse Rate 86 02/27/16 20:13 Respiratory Rate 24 02/27/16 20:13 Blood Pressure 143/75 02/27/16 20:13 O2 Sat by Pulse Oximetry (%) 97 02/27/16 21:00 Constitutional: Yes: Calm, Mild Distress Cardiovascular: Yes: Regular Rate and Rhythm Respiratory: Yes: Poor Air Entry, Rhonchi Gastrointestinal: Yes: Normal Bowel Sounds, Soft Musculoskeletal: Yes: Other Extremities: Yes: Other Edema: LLE: 2+, RLE: 2+ Neurological: Yes: Alert, Oriented Psychiatric: Yes: Alert Labs: CBC, BMP 02/26/16 07:45 02/27/16 18:00 INR, PTT INR 1.12 (0.82-1.09) 02/18/16 13:00 Assessment/Plan 75 year-old man with a PMH of HTN, PVD, COPD, CKD (baseline Cr 1.9), nephrolithiasis, and chronic LE lymphedema. Admitted in acute renal failure. Acute on chronic renal failure Hyperkalemia Sepsis s Hypertension Peripheral vascular disease Hypercarbic respiratory failure COPD bilateral cellulitis of the legs plan continue clinda incentive igor chest physio close monitoring see if patient can get resp physio
[2016-02-28] MEDS: CLINDAMYCIN HCL 150 MG CAPSULE (FP) PO SCH ×5 (00:17→23:06)
[2016-02-28] MEDS: HEPARIN NA (PORCINE) 5,000 UNITS/ML 1ML VIAL SQ SCH ×3 (01:28→17:37)
[2016-02-28] MEDS: ALBUTEROL SO4 0.083% IH SOL 2.5 MG/3 ML VIAL.NEB. NEB PRN (04:34)
[2016-02-28] MEDS ORDERED: PT OWN MED DRAWER 7, Y5N ONE ×2 (09:12→22:00)
[2016-02-28] MEDS: TIOTROPIUM BROMIDE 18 MCG/INH (DEVICE W/ 5 CAPSULES) IH SCH (09:22)
[2016-02-28] MEDS: CALCIUM ACETATE 667 MG CAPSULE (FP) PO SCH ×3 (09:23→17:37)
[2016-02-28] MEDS: CARVEDILOL 6.25 MG TABLET (FP) PO SCH (09:24)
[2016-02-28] MEDS: PREGABALIN 25 MG CAPSULE PO SCH (09:24)
[2016-02-28] MEDS: hydrALAZINE HCL 50 MG TABLET (FP) PO SCH ×2 (09:24→22:02)
[2016-02-28] MEDS: FUROSEMIDE 40 MG TABLET (FP) PO SCH ×2 (09:24→14:54)
[2016-02-28] MEDS: DULoxetine HCL 20 MG CAPSULE.DR (FP) PO SCH (09:25)
[2016-02-28] MEDS: predniSONE 20 MG TABLET (UD) PO SCH (09:25)
[2016-02-28] MEDS: PRASUGREL HCL 10 MG TAB PO SCH (09:26)
[2016-02-28] MEDS: ASPIRIN COATED 81 MG TABLET.EC PO SCH (09:26)
[2016-02-28] MEDS: CALCITRIOL 0.25 MCG CAPSULE (FP) PO SCH (09:27)
[2016-02-28] MEDS: ARFORMOTEROL TARTRATE 15 MCG/2 ML VIAL NEB SCH ×2 (10:32→22:29)
[2016-02-28] MEDS: ACETYLCYSTEINE 20% 200MG/ML 4 ML VIAL *FOR ORAL / INH USE ONLY NEB SCH ×2 (10:32→22:29)
--- NOTE | 2016-02-28 11:58 | PN ---
Progress Note (short form) - Note Progress Note: Renal Follow up for KARLOS Pt seen and examined at the bedside no acute complaints has sob overnight mild cough +rhinorrhea +chills Vital Signs Temperature 97.8 F 02/28/16 09:20 Pulse Rate 82 02/28/16 09:20 Respiratory Rate 20 02/28/16 09:20 Blood Pressure 144/64 02/28/16 09:20 O2 Sat by Pulse Oximetry (%) 97 02/27/16 21:00 Intake & Output 02/25/16 02/26/16 02/27/16 02/28/16 23:59 23:59 23:59 23:59 Intake Total 400 1280 600 220 Output Total 150 520 600 250 Balance 250 760 0 -30 Weight 319 lb 8 oz 321 lb 9.6 oz Gen: NAD CVS: RRR No M/R Lungs: dec BS throughout the lung rey Abd: Soft NT + Mild distension Ext: > 3+ LE Lymph edema, no cyanosis or clubbing CBC, BMP 02/26/16 07:45 02/27/16 18:00 Current Medications Acetylcysteine (Mucomyst 20 Oral / Inh Use Only*) 200 mg NEB BID [facility] Last Admin: 02/28/16 10:32 Dose: 200 mg Albuterol Sulfate (Ventolin 0.083% Nebulizer Soln -) 1 amp NEB Q4H PRN PRN Reason: SHORT OF BREATH/WHEEZING Last Admin: 02/28/16 04:34 Dose: 1 amp Arformoterol Tartrate (Brovana (Restricted To Pulmonology/Resp) -) 1 amp NEB BID [facility] Last Admin: 02/28/16 10:32 Dose: 1 amp Aspirin (Ecotrin -) 81 mg PO DAILY [facility] Last Admin: 02/28/16 09:26 Dose: 81 mg Calcitriol (Rocaltrol -) 0.25 mcg PO DAILY [facility] Last Admin: 02/28/16 09:27 Dose: 0.25 mcg Calcium Acetate (Phoslo -) 667 mg PO TIDCM [facility] Last Admin: 02/28/16 09:23 Dose: 667 mg Carvedilol (Coreg -) 6.25 mg PO BID [facility] Last Admin: 02/28/16 09:24 Dose: 6.25 mg Clindamycin HCl (Cleocin -) 300 mg PO Q6HPO [facility] Last Admin: 02/28/16 06:37 Dose: 300 mg Duloxetine HCl (Cymbalta -) 20 mg PO DAILY [facility] Last Admin: 02/28/16 09:25 Dose: 20 mg Furosemide (Lasix -) 80 mg PO DAILY [facility] Last Admin: 02/28/16 09:24 Dose: 80 mg Guaifenesin (Diabetic Tussin Dm -) 5 ml PO Q4H PRN PRN Reason: COUGH Last Admin: 02/27/16 10:43 Dose: 5 ml Heparin Sodium (Porcine) (Heparin -) 5,000 unit SQ Q8H-IV [facility] Last Admin: 02/28/16 09:26 Dose: Not Given Hydralazine HCl (Apresoline -) 50 mg PO BID [facility] Last Admin: 02/28/16 09:24 Dose: 50 mg Prasugrel (Effient -) 10 mg PO DAILY [facility] Last Admin: 02/28/16 09:26 Dose: 10 mg Prednisone (Deltasone -) 40 mg PO DAILY [facility] Last Admin: 02/28/16 09:25 Dose: 40 mg Pregabalin (Lyrica -) 25 mg PO DAILY [facility] Last Admin: 02/28/16 09:24 Dose: 25 mg Tiotropium [place] (Spiriva -) 1 puff IH DAILY [facility] Last Admin: 02/28/16 09:22 Dose: 1 inh A/P 75 year old Gentleman with PMhx of CKD Stage 3 (baseline Cr 1.9), Hx of Nephrolithiasis, Hypertension, COPD, CHF, PVD, Chronic LE lymph edema who was sent into the ED from wound care for increased lethargy and decreased urination for several days with KARLOS with BUN/Cr of 115/7.2 and K of 6.5 #Acute Renal Failure on CKD Renal function imrproved and stable Can increase Lasix to 80mg BID Trend BUN/Cr BUN elevated but no signs of uremia No acute indication for DIRECTOR ACCOUNT MANAGEMENT Dose all meds for Cr Cl less then 15 #Hypocalcemia/Hyperphosphatemia/Secondary Hyperparatyrodism Continue Phoslo for now continue Calcitriol for now #Microcytic Anemia s/p Procrit 82148 units SC x 1(given today) Trend Hgb #Fluid overload/LE edema/Pleural effusions Increase lasix to BID Melvin Johnson DO
--- NOTE | 2016-02-28 13:32 | PN ---
<Freddie Strickland - Last Filed: 02/28/16 13:20> Physical Exam: SUBJECTIVE: Patient seen and examined at bedside. Feels cold and is wrapped in blankets but says that he normally gets cold very easily. He states that he feels "blah" but has no complaints. He only states that his SOB is still there with minimal movement and that is not normal for him. He says at baseline he can walk at least from bed to bathroom and can drive. He denies N/V/F/C, abd pain, CP. He states that he is urinating his usual amount. OBJECTIVE: Vital Signs Temperature 97.8 F 02/28/16 09:20 Pulse Rate 82 02/28/16 09:20 Respiratory Rate 20 02/28/16 09:20 Blood Pressure 144/64 02/28/16 09:20 O2 Sat by Pulse Oximetry (%) 94 L 02/28/16 09:00 GENERAL: The patient is awake, alert, and fully oriented, in no acute distress. Sitting in chair, wrapped in blankets. HEAD: Normal with no signs of trauma. EYES: conjunctiva clear. No ptosis. ENT: moist mucous membranes. NECK: Trachea midline, full range of motion. LUNGS: Diminished breath sounds. Did not appreciate crackles or wheezing. HEART: Distant heart sounds. Regular rate and rhythm, S1, S2 without murmur, rub or gallop. ABDOMEN: Soft, obese, nontender, nondistended, normoactive bowel sounds, no guarding, no rebound, no hepatosplenomegaly, no masses. EXTREMITIES: 2+ pulses, warm, well-perfused, B/L cellulitic changes, B/L LE pitting edema and alvarado crusted chronic lesions, improving. NEUROLOGICAL: Normal speech, gait not observed. PSYCH: Normal mood, normal affect. SKIN: Warm, dry, normal turgor. Laboratory Results - last 24 hr 02/27/16 18:00 Sodium 141 Potassium 5.1 D Chloride 102 Carbon Dioxide 26 Anion Gap 13 BUN 113 H* Creatinine 4.4 H Random Glucose 187 H D Calcium 8.4 L Microbiology 02/25/16 17:30 Blood - Peripheral Venous Blood Culture - Preliminary NO GROWTH OBTAINED AFTER 48 HOURS, INCUBATION TO CONTINUE FOR 3 DAYS. 02/25/16 17:30 Blood - Peripheral Venous Blood Culture - Preliminary NO GROWTH OBTAINED AFTER 48 HOURS, INCUBATION TO CONTINUE FOR 3 DAYS. 02/26/16 06:45 Urine - Urine Clean Catch Urine Culture - Final NO GROWTH OBTAINED 02/18/16 19:15 Blood - Peripheral Venous Blood Culture - Final NO GROWTH AFTER 5 DAYS INCUBATION 02/18/16 19:15 Blood - Peripheral Venous Blood Culture - Final NO GROWTH AFTER 5 DAYS INCUBATION 02/18/16 18:10 Urine - Urine Clean Catch Urine Culture - Final NO GROWTH OBTAINED Active Medications Generic Name Dose Route Start Last Admin Trade Name Freq PRN Reason Stop Dose Admin Acetylcysteine 200 mg 02/26/16 10:00 02/28/16 10:32 Mucomyst 20 Oral / Inh Use Only* NEB 200 mg BID [facility] Administration Albuterol Sulfate 1 amp 02/23/16 16:12 02/28/16 04:34 Ventolin 0.083% Nebulizer Soln - NEB 1 amp Q4H PRN Administration SHORT OF BREATH/WHEEZING Arformoterol Tartrate 1 amp 02/23/16 22:00 02/28/16 10:32 Brovana (Restricted To Pulmonology/Resp) - NEB 1 amp BID [facility] Administration Aspirin 81 mg 02/24/16 10:00 02/28/16 09:26 Ecotrin - PO 81 mg DAILY [facility] Administration Calcitriol 0.25 mcg 02/24/16 12:45 02/28/16 09:27 Rocaltrol - PO 0.25 mcg DAILY [facility] Administration Calcium Acetate 667 mg 02/23/16 17:30 02/28/16 12:32 Phoslo - PO 667 mg TIDCM [facility] Administration Carvedilol 6.25 mg 02/27/16 22:00 02/28/16 09:24 Coreg - PO 6.25 mg BID [facility] Administration Clindamycin HCl 300 mg 02/23/16 18:00 02/28/16 12:32 Cleocin - PO 300 mg Q6HPO [facility] Administration Duloxetine HCl 20 mg 02/24/16 10:00 02/28/16 09:25 Cymbalta - PO 20 mg DAILY [facility] Administration Furosemide 80 mg 02/28/16 14:00 Lasix - PO BID@0600,1400 [facility] Guaifenesin 5 ml 02/22/16 22:29 02/27/16 10:43 Diabetic Tussin Dm - PO 5 ml Q4H PRN Administration COUGH Heparin Sodium (Porcine) 5,000 unit 11/16/16 18:00 02/28/16 09:26 Heparin - SQ Not Given Q8H-IV [facility] Hydralazine HCl 50 mg 02/23/16 22:00 02/28/16 09:24 Apresoline - PO 50 mg BID [facility] Administration Prasugrel 10 mg 02/24/16 10:00 02/28/16 09:26 Effient - PO 10 mg DAILY [facility] Administration Prednisone 40 mg 02/28/16 10:00 02/28/16 09:25 Deltasone - PO 40 mg DAILY [facility] Administration Pregabalin 25 mg 02/24/16 10:00 02/28/16 09:24 Lyrica - PO 25 mg DAILY [facility] Administration Tiotropium [place] 1 puff 02/22/16 11:15 02/28/16 09:22 Spiriva - IH 1 inh DAILY [facility] Administration ASSESSMENT/PLAN: 75 year-old man with a PMH of HTN, PVD, COPD, CKD (baseline Cr 1.9), nephrolithiasis, and chronic LE lymphedema. Admitted for acute renal failure ( hyperkalemia) and respiratory distress. 1. Acute on chronic renal failure -BUN/Cr 113/4.4(baseline 1.8-1.9) yesterday, creatinine improving slowly off HD. -urine: 600 ml yesterday, 200 ml so far today. -off HD 2. Acute Hyperkalemia -resolved -5.1 yesterday -f/u bmp, watch for increase in K as it is borderline high. 3. Acute COPD exacerbation with hypercapnic respiratory failure -Bipap as needed -NC O2 3L. Still oxygenating well -SOB when moving even with minimal exertion -brovana, albuterol PRN -prednisone 40 mg PO qd (day 1), increased from 30 mg PO qd -will require higher O2 at home when ambulating. Currently on 2L O2 at all times, may require 2L at rest and more while ambulating. #SOB -B/L pleural effusions seens on CT chest (as well as some atelectasis) -secondary to pleural effusions, dCHF, COPD exacerabtion. 4. Anemia, microcytic -Multiple Myeloma (kidney failure + anemia) -SADAF M-spike not observed -Anemia of chronic disease secondary to CKD, TIBC low -FOBT ordered 4. Sepsis secondary to B/L lower extremity cellulitis -improved -BCx (-) X 5 days; UCx negative -ID on board -clindamycin 300 mg PO q6h -c/w aztreonam 1gm q8h -change to PO equivalent? 5. HTN -hydralazine 50 mg PO bid -carvedilol 6.25 mg PO bid 6. CHF (diastolic) -lasix 80 mg po bid -Causing his LE edema most likely -will get B/L LE duplex to r/o PE 7. Hx of Depression -c/w cymbalta 8. CAD -prasugrel 10 mg PO qd 9. FEN -hyperkalemia borderline high, f/u bmp -hypocalcemia - calcitriol 9. Dispo: monitor on floors. Problem List - Problems (1) Acute kidney failure Code(s): N17.9 - ACUTE KIDNEY FAILURE, UNSPECIFIED Qualifiers: Acute renal failure type: unspecified Qualified Code(s): N17.9 - Acute kidney failure, unspecified (2) COPD exacerbation Code(s): J44.1 - CHRONIC OBSTRUCTIVE PULMONARY DISEASE W (ACUTE) EXACERBATION (3) Hyperkalemia Code(s): E87.5 - HYPERKALEMIA (4) Acute and chronic respiratory failure ([id number]) Code(s): J96.20 - ACUTE AND CHR RESP FAILURE, UNSP W HYPOXIA OR HYPERCAPNIA Qualifiers: Respiratory failure complication: hypoxia and hypercapnia Qualified Code(s): J96.21 - Acute and chronic respiratory failure with hypoxia (5) Acute exacerbation of chronic obstructive pulmonary disease (COPD) Code(s): J44.1 - CHRONIC OBSTRUCTIVE PULMONARY DISEASE W (ACUTE) EXACERBATION (6) Acute on chronic diastolic (congestive) heart failure Code(s): I50.33 - ACUTE ON CHRONIC DIASTOLIC (CONGESTIVE) HEART FAILURE (7) Anxiety and depression Code(s): F41.9 - ANXIETY DISORDER, UNSPECIFIED F32.9 - MAJOR DEPRESSIVE DISORDER, SINGLE EPISODE, UNSPECIFIED (8) Cellulitis Code(s): L03.90 - CELLULITIS, UNSPECIFIED Qualifiers: Site of cellulitis of extremity: lower extremity (9) Chronic kidney disease (CKD) Code(s): N18.9 - CHRONIC KIDNEY DISEASE, UNSPECIFIED Qualifiers: Chronic kidney disease stage: unspecified stage Qualified Code(s): N18.9 - Chronic kidney disease, unspecified (10) Diastolic CHF Code(s): I50.30 - UNSPECIFIED DIASTOLIC (CONGESTIVE) HEART FAILURE (11) Hyperlipidemia Code(s): E78.5 - HYPERLIPIDEMIA, UNSPECIFIED (12) Hypertension Code(s): I10 - ESSENTIAL (PRIMARY) HYPERTENSION (13) Obesities, morbid Code(s): E66.01 - MORBID (SEVERE) OBESITY DUE TO EXCESS CALORIES Qualifiers: Obesity type: with alveolar hypoventilation Qualified Code(s): E66.2 - Morbid (severe) obesity with alveolar hypoventilation (14) Respiratory failure with hypoxia and hypercapnia Code(s): J96.91 - RESPIRATORY FAILURE, UNSPECIFIED WITH HYPOXIA J96.92 - RESPIRATORY FAILURE, UNSPECIFIED WITH HYPERCAPNIA Qualifiers: Chronicity: acute on chronic Qualified Code(s): J96.21 - Acute and chronic respiratory failure with hypoxia; J96.22 - Acute and chronic respiratory failure with hypercapnia (15) Shortness of breath Code(s): R06.02 - SHORTNESS OF BREATH Visit type - Emergency Visit Emergency Visit: Yes ED Registration Date: 02/18/16 Care time: The patient presented to the Emergency Department on the above date and was hospitalized for further evaluation of their emergent condition. - New Patient This patient is new to me today: No - Critical Care Critical Care patient: No <Tiera Sapp - Last Filed: 02/28/16 15:35> Physical Exam: will dc coreg due to COPD , increase HZN instead
--- NOTE | 2016-02-28 14:30 | CONSULT ---
Consult Consult Specialty:: Cardiology Referred by:: Hospitalist Reason for Consultation:: SOB, CHF - History of Present Illness Chief Complaint: SOB History of Present Illness: 75 year old man with a history of HTN, COPD on home O2, Chronic combined systolic/diastolic CHF, CKD, JOY, CAD moderate LV systolic dysfunction, cardiac cath 03/2015 showed 2VD with RCA and LAD disease. He underwent PCI with ABDON of RCA 03/2015 and staged PCI of LAD in 04/2015 with significant improvement in symptoms. He has been feeling well since then, now admitted with cellulitis, sepsis, TARYN on CKD and sob Pt seen and examined today, c/o chills and sob. denies chest pain. 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 Cardio/Vascular: Yes: CAD, CHF (diastolic), HTN, Hyperlipdemia Pulmonary: Yes: COPD, O2 Dependent, Sleep Apnea Renal/: Yes: Renal Inusuff, Renal Calculi Dermatology: Yes: Cellulitis (Cellulitis lower extremiites during patient's hospitalization in February) Additional Medical History: Obesity - Past Surgical History Past Surgical History: Yes: None - Alcohol/Substance Use Hx Alcohol Use: No History of Substance Use: reports: None - Smoking History Smoking history: Former smoker Have you smoked in the past 12 months: No Aproximately how many cigarettes per day: 0 If you are a former smoker, when did you quit?: 6 years - Social History ADL: Independent 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 History of Recent Travel: No Home Medications - Allergies Allergies/Adverse Reactions: Allergies Allergy/AdvReac Type Severity Reaction Status Date / Time Penicillins Allergy Verified 02/18/16 11:45 - Home Medications Home Medications: Ambulatory Orders Acetaminophen W/ Codeine #3 [Tylenol # 3 -] 1 tab PO Q6H PRN 02/18/16 Albuterol 0.083% Nebulizer [place] [Ventolin 0.083% Nebulizer Soln -] 1 amp NEB ASDIR PRN 02/18/16 Aspirin [Ecotrin] 81 mg PO DAILY 02/18/16 Duloxetine HCl 20 mg PO DAILY 02/18/16 Furosemide 20 mg PO HS 02/18/16 Furosemide 40 mg PO DAILY 02/18/16 Hydralazine HCl [Apresoline -] 50 mg PO HS 02/18/16 Prasugrel HCl [Effient] 10 mg PO DAILY 02/18/16 Prednisone 5 mg PO DAILY 02/18/16 Pregabalin [Lyrica] 25 mg PO DAILY 02/18/16 Family Disease History - Family Disease History Family Disease History: Other: Father (parkinson's disease) Vital Signs: Vital Signs Temperature 97.8 F 02/28/16 09:20 Pulse Rate 82 02/28/16 09:20 Respiratory Rate 20 02/28/16 09:20 Blood Pressure 144/64 02/28/16 09:20 O2 Sat by Pulse Oximetry (%) 94 L 02/28/16 09:00 - Other Data Labs, Other Data: CBC, BMP 02/26/16 07:45 02/27/16 18:00 INR, PTT INR 1.12 (0.82-1.09) 02/18/16 13:00 Assessment/Plan 75 year old man with a history of HTN, COPD on home O2, Chronic combined systolic/diastolic CHF, CKD, JOY, CAD moderate LV systolic dysfunction, cardiac cath 03/2015 showed 2VD with RCA and LAD disease. He underwent PCI with ABDON of RCA 03/2015 and staged PCI of LAD in 04/2015 with significant improvement in symptoms. He has been feeling well since then, now admitted with cellulitis, sepsis, TARYN on CKD and sob Pt seen and examined today, c/o chills and sob. denies chest pain Chronic combined systolic/diastolic CHF NYHA class IV, LV systolic function normalized post PCI -cont lasix 80mg po bid for now -monitor BUN/Creat, electrolytes, keep k=4, Mg=2 -not on bblocker due to severe COPD -not on PIPER-I currently due to fluctuating renal function in the past -echo showed normal LV systolic function, no sig valvular abnl CAD-PCI with ABDON of RCA 03/2015 and staged PCI of LAD in 04/2015 -echo showed normal LV systolic function, no sig valvular abnl -cont ASA and effient -cont lipitor -not on bblocker due to severe COPD -cont Torsemide 20mg bid, monitor daily weight and I/Os -monitor BUN/Creat, electrolytes, keep k=4, Mg=2 -not on bblocker due to severe COPD -not on PIPER-I currently due to fluctuating renal function in the past
--- NOTE | 2016-02-28 15:53 | PN ---
Teaching Attending Note Name of Resident: Freddie Strickland ATTENDING PHYSICIAN STATEMENT I saw and evaluated the patient. I reviewed the resident's note and discussed the case with the resident. I agree with the resident's findings and plan as documented. SUBJECTIVE: no fever or chills , no abd pain , no SOB at rest but with increased SOb with minimal activities OBJECTIVE: NAD Cv : RRR Lungs : course breath sounds , at both lung rey ext: thick skin with no drainage ASSESSMENT AND PLAN: 75 year-old man with a PMHx of HTN, PVD, COPD, CKD (baseline Cr 1.8), nephrolithiasis, D CHF , CAD s/p stenting in 03/23 and chronic LE lymphedema. presented with SOB and was found to have acute hypercapnic resp failure with acute renal failure . 1- acute hypercapnic resp failure due to COPD exa: severe COPD and diastolic heart failur e - cont lasix BID and monitor UOP as no response to 80 daily - cont NEbs and increased dose of steroids - placed an order for chest PT - CT of chest with no evidence of infiltrate , has pleural effusions and atelectasis - appreciate pulm adn card help 2- cellultis of LE : will d/w Dr. Szymanski, might be able to stop abx today 3- KARLOS on CKD: unclear etiology ,no M spike on SPEP ? ATN due to volume depletion. off HD now - monitor - cont calcitriol 4- microcytic anemia . - no evidence of iron def ( ACD ) 5- uncontrolled HTN: dc coreg despite no activity against B2 receptors, as has severe copd . increase HZN to TID 6- HLOC
--- NOTE | 2016-02-28 16:59 | PN ---
Progress Note, Physician History of Present Illness: sob continues to bother him no other events - Current Medication List Current Medications: Active Medications Acetylcysteine (Mucomyst 20 Oral / Inh Use Only*) 200 mg NEB BID [facility] Last Admin: 02/28/16 10:32 Dose: 200 mg Arformoterol Tartrate (Brovana (Restricted To Pulmonology/Resp) -) 1 amp NEB BID [facility] Last Admin: 02/28/16 10:32 Dose: 1 amp Aspirin (Ecotrin -) 81 mg PO DAILY [facility] Last Admin: 02/28/16 09:26 Dose: 81 mg Calcitriol (Rocaltrol -) 0.25 mcg PO DAILY [facility] Last Admin: 02/28/16 09:27 Dose: 0.25 mcg Calcium Acetate (Phoslo -) 667 mg PO TIDCM [facility] Last Admin: 02/28/16 12:32 Dose: 667 mg Clindamycin HCl (Cleocin -) 300 mg PO Q6HPO [facility] Last Admin: 02/28/16 12:32 Dose: 300 mg Duloxetine HCl (Cymbalta -) 20 mg PO DAILY [facility] Last Admin: 02/28/16 09:25 Dose: 20 mg Furosemide (Lasix -) 80 mg PO BID@0600,1400 [facility] Last Admin: 02/28/16 14:54 Dose: 80 mg Guaifenesin (Diabetic Tussin Dm -) 5 ml PO Q4H PRN PRN Reason: COUGH Last Admin: 02/27/16 10:43 Dose: 5 ml Heparin Sodium (Porcine) (Heparin -) 5,000 unit SQ Q8H-IV [facility] Last Admin: 02/28/16 09:26 Dose: Not Given Hydralazine HCl (Apresoline -) 50 mg PO TID [facility] Prasugrel (Effient -) 10 mg PO DAILY [facility] Last Admin: 02/28/16 09:26 Dose: 10 mg Prednisone (Deltasone -) 40 mg PO DAILY [facility] Last Admin: 02/28/16 09:25 Dose: 40 mg Pregabalin (Lyrica -) 25 mg PO DAILY [facility] Last Admin: 02/28/16 09:24 Dose: 25 mg Tiotropium [place] (Spiriva -) 1 puff IH DAILY [facility] Last Admin: 02/28/16 09:22 Dose: 1 inh - Objective Vital Signs: Vital Signs Temperature 97.9 F 02/28/16 14:34 Pulse Rate 82 02/28/16 14:34 Respiratory Rate 28 H 02/28/16 14:34 Blood Pressure 139/65 02/28/16 14:34 O2 Sat by Pulse Oximetry (%) 94 L 02/28/16 09:00 Constitutional: Yes: Calm, Moderate Distress Cardiovascular: Yes: Regular Rate and Rhythm Respiratory: Yes: Regular, Poor Air Entry Gastrointestinal: Yes: Normal Bowel Sounds, Soft Musculoskeletal: Yes: Other Extremities: Yes: Other Edema: LLE: 2+, RLE: 2+ Neurological: Yes: Alert, Oriented Psychiatric: Yes: Alert Labs: CBC, BMP 02/26/16 07:45 02/27/16 18:00 INR, PTT INR 1.12 (0.82-1.09) 02/18/16 13:00 Assessment/Plan 75 year-old man with a PMH of HTN, PVD, COPD, CKD (baseline Cr 1.9), nephrolithiasis, and chronic LE lymphedema. Admitted in acute renal failure. Acute on chronic renal failure Hyperkalemia Sepsis s Hypertension Peripheral vascular disease Hypercarbic respiratory failure COPD bilateral cellulitis of the legs plan can stop clinda tomorrow incentive igor chest physio close monitoring see if patient can get resp physio diuresis
[2016-02-28] MEDS ORDERED: ALBUTEROL SO4 0.083% IH SOL 2.5 MG/3 ML VIAL.NEB. NEB PRN (17:13)
--- NOTE | 2016-02-28 19:32 | PN ---
Progress Note, Physician History of Present Illness: Pulmonary Pt has had increased sob over the last several days. - Current Medication List Current Medications: Active Medications Acetylcysteine (Mucomyst 20 Oral / Inh Use Only*) 200 mg NEB BID [facility] Last Admin: 02/28/16 10:32 Dose: 200 mg Albuterol Sulfate (Ventolin 0.083% Nebulizer Soln -) 1 amp NEB Q4H PRN PRN Reason: SHORT OF BREATH/WHEEZING Last Admin: 02/28/16 18:26 Dose: 1 amp Albuterol Sulfate (Ventolin 0.083% Nebulizer Soln -) 1 amp NEB QIDR [facility]ESLEE Arformoterol Tartrate (Brovana (Restricted To Pulmonology/Resp) -) 1 amp NEB BID [facility] Last Admin: 02/28/16 10:32 Dose: 1 amp Aspirin (Ecotrin -) 81 mg PO DAILY [facility] Last Admin: 02/28/16 09:26 Dose: 81 mg Calcitriol (Rocaltrol -) 0.25 mcg PO DAILY [facility] Last Admin: 02/28/16 09:27 Dose: 0.25 mcg Calcium Acetate (Phoslo -) 667 mg PO TIDCM [facility] Last Admin: 02/28/16 17:37 Dose: 667 mg Clindamycin HCl (Cleocin -) 300 mg PO Q6HPO [facility] Last Admin: 02/28/16 17:37 Dose: 300 mg Duloxetine HCl (Cymbalta -) 20 mg PO DAILY [facility] Last Admin: 02/28/16 09:25 Dose: 20 mg Furosemide (Lasix -) 80 mg PO BID@0600,1400 [facility] Last Admin: 02/28/16 14:54 Dose: 80 mg Guaifenesin (Diabetic Tussin Dm -) 5 ml PO Q4H PRN PRN Reason: COUGH Last Admin: 02/27/16 10:43 Dose: 5 ml Heparin Sodium (Porcine) (Heparin -) 5,000 unit SQ Q8H-IV [facility] Last Admin: 02/28/16 17:37 Dose: Not Given Hydralazine HCl (Apresoline -) 50 mg PO TID [facility] Prasugrel (Effient -) 10 mg PO DAILY [facility] Last Admin: 02/28/16 09:26 Dose: 10 mg Prednisone (Deltasone -) 40 mg PO DAILY [facility] Last Admin: 02/28/16 09:25 Dose: 40 mg Pregabalin (Lyrica -) 25 mg PO DAILY [facility] Last Admin: 02/28/16 09:24 Dose: 25 mg Tiotropium [place] (Spiriva -) 1 puff IH DAILY [facility] Last Admin: 02/28/16 09:22 Dose: 1 inh - Objective Vital Signs: Vital Signs Temperature 97.4 F L 02/28/16 18:46 Pulse Rate 76 02/28/16 18:46 Respiratory Rate 24 02/28/16 18:46 Blood Pressure 155/73 02/28/16 18:46 O2 Sat by Pulse Oximetry (%) 94 L 02/28/16 09:00 Constitutional: Yes: Moderate Distress Eyes: No: Sclera Icterus HENT: Yes: Atraumatic, Normocephalic, Pharyngeal Erythema Neck: Yes: Trachea Midline Cardiovascular: Yes: Regular Rate and Rhythm Respiratory: Yes: Diminished Gastrointestinal: Yes: Soft. No: Tenderness Extremities: Yes: Other (lymphedema) Edema: LLE: 4+, RLE: 4+ Neurological: Yes: Alert, Oriented Labs: CBC, BMP 02/26/16 07:45 02/27/16 18:00 INR, PTT INR 1.12 (0.82-1.09) 02/18/16 13:00 - ....Imaging Cat Scan: Report Reviewed, Image Reviewed (bilateral effusions and basilar atelectasis) Problem List - Problems (1) COPD exacerbation Code(s): J44.1 - CHRONIC OBSTRUCTIVE PULMONARY DISEASE W (ACUTE) EXACERBATION (2) Acute and chronic respiratory failure (swyww-gq-ydhhald) Code(s): J96.20 - ACUTE AND CHR RESP FAILURE, UNSP W HYPOXIA OR HYPERCAPNIA Qualifiers: Respiratory failure complication: hypoxia and hypercapnia Qualified Code(s): J96.21 - Acute and chronic respiratory failure with hypoxia (3) Acute kidney failure Code(s): N17.9 - ACUTE KIDNEY FAILURE, UNSPECIFIED Qualifiers: Acute renal failure type: unspecified Qualified Code(s): N17.9 - Acute kidney failure, unspecified (4) Chronic kidney disease (CKD) Code(s): N18.9 - CHRONIC KIDNEY DISEASE, UNSPECIFIED Qualifiers: Chronic kidney disease stage: unspecified stage Qualified Code(s): N18.9 - Chronic kidney disease, unspecified (5) Cellulitis Code(s): L03.90 - CELLULITIS, UNSPECIFIED Qualifiers: Site of cellulitis of extremity: lower extremity (6) Hyperkalemia Code(s): E87.5 - HYPERKALEMIA (7) Arteriosclerotic heart disease (ASHD) Code(s): I25.10 - ATHSCL HEART DISEASE OF [place] CORONARY ARTERY W/O ANG PCTRS (8) Obesities, morbid Code(s): E66.01 - MORBID (SEVERE) OBESITY DUE TO EXCESS CALORIES Qualifiers: Obesity type: with alveolar hypoventilation Qualified Code(s): E66.2 - Morbid (severe) obesity with alveolar hypoventilation Assessment/Plan COPD Acute on chronic hypercapneic respiratory failure. CAD; S/P stents: pt's increased dyspnea may be related to CHF Case discussed with Dr Sapp Acute Renal Failure Hyperkalemia Chronic Renal Insufficiency: currently Creatinine is 4.4 BUN 113 Hgb 7.4 K 5.1 ASHD: No chest pain or palpitations Plan: diuretic Steroid taper inhaled bronchodilator NIPPV prn antibiotic per I.D.
[2016-02-29 00:08] LABS: A/G RATIO 1.1 (0.7-1.7); ALBUMIN 2.8 g/dL (2.9-4.4); GLOBULIN, TOTAL 2.6 g/dL (2.2-3.9); M-SPIKE Not Observed g/dL (Not Observed); TOTAL PROTEIN 5.4 g/dL (6.0-8.5)
[2016-02-29] MEDS: HEPARIN NA (PORCINE) 5,000 UNITS/ML 1ML VIAL SQ SCH ×3 (02:09→19:06)
[2016-02-29] MEDS: CLINDAMYCIN HCL 150 MG CAPSULE (FP) PO SCH ×2 (06:05→11:20)
[2016-02-29] MEDS: hydrALAZINE HCL 50 MG TABLET (FP) PO SCH ×3 (06:06→22:47)
[2016-02-29] MEDS: FUROSEMIDE 40 MG TABLET (FP) PO SCH ×2 (06:27→14:24)
[2016-02-29] MEDS: ALBUTEROL SO4 0.083% IH SOL 2.5 MG/3 ML VIAL.NEB. NEB SCH ×4 (06:54→23:03)
[2016-02-29 08:24] LABS: BASOPHIL 0.3 % (0-2.0); MCH 24.5 pg (25.7-33.7); MCHC 31.5 g/dl (32.0-35.9); NEUTROPHILS 70.2 % (42.8-82.8); PLATELET COUNT 222 K/MM3 (134-434); RDW 18.1 % (11.9-15.9); WHITE BLOOD COUNT 6.7 K/mm3 (4.0-10.0)
[2016-02-29] MEDS: CALCIUM ACETATE 667 MG CAPSULE (FP) PO SCH ×3 (09:00→17:47)
[2016-02-29 10:12] LABS: CALCIUM 7.6 mg/dL (8.5-10.1); CREATININE 4.2 mg/dL (0.7-1.3); MAGNESIUM 2.5 mg/dL (1.8-2.4); PHOSPHOROUS 5.8 mg/dL (2.5-4.9)
[2016-02-29] MEDS: ARFORMOTEROL TARTRATE 15 MCG/2 ML VIAL NEB SCH ×2 (10:15→21:56)
[2016-02-29] MEDS: ACETYLCYSTEINE 20% 200MG/ML 4 ML VIAL *FOR ORAL / INH USE ONLY NEB SCH ×2 (10:15→21:56)
[2016-02-29] MEDS ORDERED: PT OWN MED DRAWER 7, Y5N ONE (11:18)
[2016-02-29] MEDS: predniSONE 20 MG TABLET (UD) PO SCH (11:22)
[2016-02-29] MEDS: ASPIRIN COATED 81 MG TABLET.EC PO SCH (11:23)
[2016-02-29] MEDS: CALCITRIOL 0.25 MCG CAPSULE (FP) PO SCH (11:23)
[2016-02-29] MEDS: PREGABALIN 25 MG CAPSULE PO SCH (11:23)
[2016-02-29] MEDS: PRASUGREL HCL 10 MG TAB PO SCH (11:24)
[2016-02-29] MEDS: DULoxetine HCL 20 MG CAPSULE.DR (FP) PO SCH (11:24)
--- NOTE | 2016-02-29 11:52 | PN ---
Progress Note, Physician Chief Complaint: no acute distress H/H noted, PRBC ordered. - Current Medication List Current Medications: Active Medications Acetylcysteine (Mucomyst 20 Oral / Inh Use Only*) 200 mg NEB BID [facility] Last Admin: 02/29/16 10:15 Dose: 200 mg Albuterol Sulfate (Ventolin 0.083% Nebulizer Soln -) 1 amp NEB Q4H PRN PRN Reason: SHORT OF BREATH/WHEEZING Last Admin: 02/28/16 18:26 Dose: 1 amp Albuterol Sulfate (Ventolin 0.083% Nebulizer Soln -) 1 amp NEB QIDR [facility] Last Admin: 02/29/16 06:54 Dose: 1 amp Arformoterol Tartrate (Brovana (Restricted To Pulmonology/Resp) -) 1 amp NEB BID [facility] Last Admin: 02/29/16 10:15 Dose: 1 amp Aspirin (Ecotrin -) 81 mg PO DAILY [facility] Last Admin: 02/28/16 09:26 Dose: 81 mg Calcitriol (Rocaltrol -) 0.25 mcg PO DAILY [facility] Last Admin: 02/28/16 09:27 Dose: 0.25 mcg Calcium Acetate (Phoslo -) 667 mg PO TIDCM [facility] Last Admin: 02/29/16 09:00 Dose: 667 mg Clindamycin HCl (Cleocin -) 300 mg PO Q6HPO [facility] Last Admin: 02/29/16 06:05 Dose: 300 mg Duloxetine HCl (Cymbalta -) 20 mg PO DAILY [facility] Last Admin: 02/28/16 09:25 Dose: 20 mg Furosemide (Lasix -) 80 mg PO BID@0600,1400 [facility] Last Admin: 02/29/16 06:27 Dose: 80 mg Guaifenesin (Diabetic Tussin Dm -) 5 ml PO Q4H PRN PRN Reason: COUGH Last Admin: 02/27/16 10:43 Dose: 5 ml Heparin Sodium (Porcine) (Heparin -) 5,000 unit SQ Q8H-IV [facility] Last Admin: 02/29/16 02:09 Dose: Not Given Hydralazine HCl (Apresoline -) 50 mg PO TID [facility] Last Admin: 02/29/16 06:06 Dose: 50 mg Prasugrel (Effient -) 10 mg PO DAILY [facility] Last Admin: 02/28/16 09:26 Dose: 10 mg Prednisone (Deltasone -) 40 mg PO DAILY [facility] Last Admin: 02/28/16 09:25 Dose: 40 mg Pregabalin (Lyrica -) 25 mg PO DAILY [facility] Last Admin: 02/28/16 09:24 Dose: 25 mg Tiotropium [place] (Spiriva -) 1 puff IH DAILY [facility] Last Admin: 02/28/16 09:22 Dose: 1 inh - Objective Vital Signs: Vital Signs Temperature 98.2 F 02/29/16 06:00 Pulse Rate 76 02/29/16 10:41 Respiratory Rate 20 02/29/16 06:00 Blood Pressure 145/65 02/29/16 06:00 O2 Sat by Pulse Oximetry (%) 97 02/29/16 10:41 Eyes: Yes: Conjunctiva Clear Cardiovascular: Yes: Regular Rate and Rhythm Respiratory: Yes: Other (decreased breath sounds at bases, no wheezing. Scattered rhonchi) Gastrointestinal: Yes: Soft (non-tender), Abdomen, Obese Edema: Yes Edema: LLE: 3+, RLE: 3+ Neurological: Yes: Alert, Oriented Labs: CBC, BMP 02/29/16 07:50 02/29/16 07:50 INR, PTT INR 1.12 (0.82-1.09) 02/18/16 13:00 Laboratory Tests 02/26/16 02/29/16 02/29/16 15:10 07:50 07:50 WBC 6.7 Hgb 6.7 L* Plt Count 222 D Sodium 141 Potassium 4.2 BUN 123 H* Creatinine 4.2 H Magnesium 2.5 H Stool Occult Blood Negative Laboratory Tests 02/26/16 15:10 Stool Occult Blood Negative Assessment/Plan Assessment/Plan 75 year old man with a history of HTN, COPD on home O2, Chronic combined systolic/diastolic CHF, CKD, JOY, CAD moderate LV systolic dysfunction, cardiac cath 03/2015 showed 2VD with RCA and LAD disease. He underwent PCI with ABDON of RCA 03/2015 and staged PCI of LAD in 04/2015 with significant improvement in symptoms. 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 -For PRBC transfusion -Follow H/H -further work up as per PMD Acute on chronic CKD- -creatinine improved since admission -renal following.
--- NOTE | 2016-02-29 12:10 | PN ---
Progress Note, Physician History of Present Illness: Pt alertand oriented. NAD but dyspneic with minimal exertion . - Current Medication List Current Medications: Active Medications Acetylcysteine (Mucomyst 20 Oral / Inh Use Only*) 200 mg NEB BID [facility] Last Admin: 02/29/16 10:15 Dose: 200 mg Albuterol Sulfate (Ventolin 0.083% Nebulizer Soln -) 1 amp NEB Q4H PRN PRN Reason: SHORT OF BREATH/WHEEZING Last Admin: 02/28/16 18:26 Dose: 1 amp Albuterol Sulfate (Ventolin 0.083% Nebulizer Soln -) 1 amp NEB QIDR [facility] Last Admin: 02/29/16 06:54 Dose: 1 amp Arformoterol Tartrate (Brovana (Restricted To Pulmonology/Resp) -) 1 amp NEB BID [facility] Last Admin: 02/29/16 10:15 Dose: 1 amp Aspirin (Ecotrin -) 81 mg PO DAILY [facility] Last Admin: 02/29/16 11:23 Dose: 81 mg Calcitriol (Rocaltrol -) 0.25 mcg PO DAILY [facility] Last Admin: 02/29/16 11:23 Dose: 0.25 mcg Calcium Acetate (Phoslo -) 667 mg PO TIDCM [facility] Last Admin: 02/29/16 11:22 Dose: 667 mg Clindamycin HCl (Cleocin -) 300 mg PO Q6HPO [facility] Last Admin: 02/29/16 11:20 Dose: 300 mg Duloxetine HCl (Cymbalta -) 20 mg PO DAILY [facility] Last Admin: 02/29/16 11:24 Dose: 20 mg Furosemide (Lasix -) 80 mg PO BID@0600,1400 [facility] Last Admin: 02/29/16 06:27 Dose: 80 mg Guaifenesin (Diabetic Tussin Dm -) 5 ml PO Q4H PRN PRN Reason: COUGH Last Admin: 02/27/16 10:43 Dose: 5 ml Heparin Sodium (Porcine) (Heparin -) 5,000 unit SQ Q8H-IV [facility] Last Admin: 02/29/16 11:24 Dose: Not Given Hydralazine HCl (Apresoline -) 50 mg PO TID [facility] Last Admin: 02/29/16 06:06 Dose: 50 mg Prasugrel (Effient -) 10 mg PO DAILY [facility] Last Admin: 02/29/16 11:24 Dose: 10 mg Prednisone (Deltasone -) 40 mg PO DAILY [facility] Last Admin: 02/29/16 11:22 Dose: 40 mg Pregabalin (Lyrica -) 25 mg PO DAILY [facility] Last Admin: 02/29/16 11:23 Dose: 25 mg Tiotropium [place] (Spiriva -) 1 puff IH DAILY [facility] Last Admin: 02/28/16 09:22 Dose: 1 inh - Objective Vital Signs: Vital Signs Temperature 98 F 02/29/16 10:00 Pulse Rate 76 02/29/16 10:41 Respiratory Rate 20 02/29/16 10:00 Blood Pressure 156/82 02/29/16 10:00 O2 Sat by Pulse Oximetry (%) 97 02/29/16 10:41 Constitutional: Yes: Calm Eyes: No: Sclera Icterus HENT: Yes: Atraumatic, Normocephalic Neck: Yes: Supple, Trachea Midline Cardiovascular: Yes: Regular Rate and Rhythm. No: JVD Respiratory: Yes: CTA Bilaterally Gastrointestinal: Yes: Soft. No: Tenderness Extremities: Yes: Erythema Edema: Yes Edema: LLE: 4+, RLE: 4+ Neurological: Yes: Alert, Oriented Labs: CBC, BMP 02/29/16 07:50 02/29/16 07:50 INR, PTT INR 1.12 (0.82-1.09) 02/18/16 13:00 - ....Imaging Chest X-ray: Report Reviewed, Image Reviewed (bilateral effusions and atelectasis/infiltrates) Problem List - Problems (1) COPD exacerbation Code(s): J44.1 - CHRONIC OBSTRUCTIVE PULMONARY DISEASE W (ACUTE) EXACERBATION (2) Acute and chronic respiratory failure ([id number]) Code(s): J96.20 - ACUTE AND CHR RESP FAILURE, UNSP W HYPOXIA OR HYPERCAPNIA Qualifiers: Respiratory failure complication: hypoxia and hypercapnia Qualified Code(s): J96.21 - Acute and chronic respiratory failure with hypoxia (3) Acute kidney failure Code(s): N17.9 - ACUTE KIDNEY FAILURE, UNSPECIFIED Qualifiers: Acute renal failure type: unspecified Qualified Code(s): N17.9 - Acute kidney failure, unspecified (4) Chronic kidney disease (CKD) Code(s): N18.9 - CHRONIC KIDNEY DISEASE, UNSPECIFIED Qualifiers: Chronic kidney disease stage: unspecified stage Qualified Code(s): N18.9 - Chronic kidney disease, unspecified (5) Cellulitis Code(s): L03.90 - CELLULITIS, UNSPECIFIED Qualifiers: Site of cellulitis of extremity: lower extremity (6) Hyperkalemia Code(s): E87.5 - HYPERKALEMIA (7) Arteriosclerotic heart disease (ASHD) Code(s): I25.10 - ATHSCL HEART DISEASE OF [place] CORONARY ARTERY W/O ANG PCTRS (8) Obesities, morbid Code(s): E66.01 - MORBID (SEVERE) OBESITY DUE TO EXCESS CALORIES Qualifiers: Obesity type: with alveolar hypoventilation Qualified Code(s): E66.2 - Morbid (severe) obesity with alveolar hypoventilation Assessment/Plan Anemia: Pt being transfused 1 unit COPD Acute on chronic hypercapneic respiratory failure. CAD; S/P stents Acute Renal Failure Chronic Renal Insufficiency: currently Creatinine is 4.2 BUN 123 Hgb 6.7 K 4.2 ASHD: No chest pain or palpitations Plan: transfuse diuretic Steroid inhaled bronchodilator NIPPV prn antibiotic per I.D. Wade discussed with Dr Yen
--- NOTE | 2016-02-29 13:27 | PN ---
Physical Exam: SUBJECTIVE: Patient seen and examined. Had chest pain overnight. No longer has chest pain. Was placed on venturi mask overnight by night team. Currently denies any SOB at rest, CP, abd pain, N/V/F/C. Is urinating with no dysuria. Still has SOB with minimal exertion. Feels as though his legs are swelling more. OBJECTIVE: Vital Signs Temperature 98 F 02/29/16 10:00 Pulse Rate 76 02/29/16 10:41 Respiratory Rate 20 02/29/16 10:00 Blood Pressure 156/82 02/29/16 10:00 O2 Sat by Pulse Oximetry (%) 97 02/29/16 10:41 GENERAL: The patient is awake, alert, and fully oriented, in no acute distress. Sitting in chair, wrapped in blankets. HEAD: Normal with no signs of trauma. EYES: conjunctiva clear. No ptosis. ENT: moist mucous membranes. NECK: Trachea midline, full range of motion. LUNGS: Diminished breath sounds. Did not appreciate crackles or wheezing. HEART: Distant heart sounds. Regular rate and rhythm, S1, S2 without murmur, rub or gallop. ABDOMEN: Soft, obese, nontender, nondistended, normoactive bowel sounds, no guarding, no rebound, no hepatosplenomegaly, no masses. EXTREMITIES: 2+ pulses, warm, well-perfused, B/L cellulitic changes, B/L LE pitting edema and alvarado crusted chronic lesions, improving. NEUROLOGICAL: Normal speech, gait not observed. PSYCH: Normal mood, normal affect. SKIN: Warm, dry, normal turgor. Laboratory Results - last 24 hr 02/23/16 02/29/16 02/29/16 14:53 07:50 07:50 WBC 6.7 RBC 2.74 L Hgb 6.7 L* Hct 21.4 L MCV 78.0 L MCHC 31.5 L RDW 18.1 H Plt Count 222 D MPV 8.0 Neutrophils % 70.2 Lymphocytes % 11.6 D Monocytes % 16.9 H Eosinophils % 1.0 D Basophils % 0.3 Sodium 141 Potassium 4.2 Chloride 102 Carbon Dioxide 26 Anion Gap 13 BUN 123 H* Creatinine 4.2 H Random Glucose 107 H D Calcium 7.6 L Phosphorus 5.8 H Magnesium 2.5 H Prot Electrophoresis Serum Total Protein 5.4 L Albumin 2.8 L Globulin 2.6 Albumin/Globulin Ratio 1.1 Bxhes-4-Xddmhfwou 0.3 Xtvuo-2-Iajblzixo 0.9 Beta Globulins 0.7 Gamma Globulins 0.7 SADAF M-Mendez Not observed Blood Type Antibody Screen Crossmatch 02/29/16 09:00 WBC RBC Hgb Hct MCV MCHC RDW Plt Count MPV Neutrophils % Lymphocytes % Monocytes % Eosinophils % Basophils % Sodium Potassium Chloride Carbon Dioxide Anion Gap BUN Creatinine Random Glucose Calcium Phosphorus Magnesium Prot Electrophoresis Serum Total Protein Albumin Globulin Albumin/Globulin Ratio Xrglo-7-Eqpohdfvn Plkxb-3-Qwmqdlqal Beta Globulins Gamma Globulins SADAF M-Mendez Blood Type A POSITIVE Antibody Screen Negative Crossmatch See Detail Microbiology 02/28/16 17:40 Nasopharyngeal Swab Influenza Types A,B Antigen (TONI) - Final 02/28/16 17:40 Nasopharyngeal Swab - Final 02/25/16 17:30 Blood - Peripheral Venous Blood Culture - Preliminary NO GROWTH OBTAINED AFTER 72 HOURS, INCUBATION TO CONTINUE FOR 2 DAYS. 02/25/16 17:30 Blood - Peripheral Venous Blood Culture - Preliminary NO GROWTH OBTAINED AFTER 72 HOURS, INCUBATION TO CONTINUE FOR 2 DAYS. 02/26/16 06:45 Urine - Urine Clean Catch Urine Culture - Final NO GROWTH OBTAINED 02/18/16 19:15 Blood - Peripheral Venous Blood Culture - Final NO GROWTH AFTER 5 DAYS INCUBATION 02/18/16 19:15 Blood - Peripheral Venous Blood Culture - Final NO GROWTH AFTER 5 DAYS INCUBATION 02/18/16 18:10 Urine - Urine Clean Catch Urine Culture - Final NO GROWTH OBTAINED Active Medications Generic Name Dose Route Start Last Admin Trade Name Freq PRN Reason Stop Dose Admin Acetylcysteine 200 mg 02/26/16 10:00 02/29/16 10:15 Mucomyst 20 Oral / Inh Use Only* NEB 200 mg BID LESLEE Administration Albuterol Sulfate 1 amp 02/28/16 17:13 02/28/16 18:26 Ventolin 0.083% Nebulizer Soln - NEB 1 amp Q4H PRN Administration SHORT OF BREATH/WHEEZING Albuterol Sulfate 1 amp 02/28/16 18:45 02/29/16 06:54 Ventolin 0.083% Nebulizer Soln - NEB 1 amp QIDR LESLEE Administration Arformoterol Tartrate 1 amp 02/23/16 22:00 02/29/16 10:15 Brovana (Restricted To Pulmonology/Resp) - NEB 1 amp BID LESLEE Administration Aspirin 81 mg 02/24/16 10:00 02/29/16 11:23 Ecotrin - PO 81 mg DAILY L[facility]E Administration Calcitriol 0.25 mcg 02/24/16 12:45 02/29/16 11:23 Rocaltrol - PO 0.25 mcg DAILY [facility]E Administration Calcium Acetate 667 mg 02/23/16 17:30 02/29/16 11:22 Phoslo - PO 667 mg TIDCM LESLEE Administration Clindamycin HCl 300 mg 02/23/16 18:00 02/29/16 11:20 Cleocin - PO 300 mg Q6HPO L[facility]LEE Administration Duloxetine HCl 20 mg 02/24/16 10:00 02/29/16 11:24 Cymbalta - PO 20 mg DAILY [facility]E Administration Furosemide 80 mg 02/28/16 14:00 02/29/16 06:27 Lasix - PO 80 mg BID@0600,1400 [facility]E Administration Guaifenesin 5 ml 02/22/16 22:29 02/27/16 10:43 Diabetic Tussin Dm - PO 5 ml Q4H PRN Administration COUGH Heparin Sodium (Porcine) 5,000 unit 02/23/16 18:00 02/29/16 11:24 Heparin - SQ Not Given Q8H-IV [facility]E Hydralazine HCl 50 mg 02/28/16 22:00 02/29/16 06:06 Apresoline - PO 50 mg TID [facility]E Administration Prasugrel 10 mg 02/24/16 10:00 02/29/16 11:24 Effient - PO 10 mg DAILY [facility] Administration Prednisone 40 mg 02/28/16 10:00 02/29/16 11:22 Deltasone - PO 40 mg DAILY [facility] Administration Pregabalin 25 mg 02/24/16 10:00 02/29/16 11:23 Lyrica - PO 25 mg DAILY [facility] Administration Tiotropium [place] 1 puff 02/22/16 11:15 02/28/16 09:22 Spiriva - IH 1 inh DAILY [facility] Administration ASSESSMENT/PLAN: 75 year-old man with a PMH of HTN, PVD, COPD, CKD (baseline Cr 1.9), nephrolithiasis, and chronic LE lymphedema. Admitted for acute renal failure ( hyperkalemia) and respiratory distress. 1. Acute on chronic renal failure -BUN/Cr 123/4.2(baseline 1.8-1.9) yesterday, creatinine improving slowly off HD. -urine: output improving - 1050 ml yesterday, 500 ml so far today. -lasix po 80 mg bid -off HD 2. Acute Hyperkalemia -resolved -4.2 yesterday -f/u bmp 3. Acute COPD exacerbation with hypercapnic respiratory failure -Bipap as needed -NC O2 3L. Still oxygenating well -SOB when moving even with minimal exertion -brovana, albuterol PRN -prednisone 40 mg PO qd (day 2) -will require higher O2 at home when ambulating. Currently on 2L O2 at all times at home, may require 2L at rest and more while ambulating. #Chest pain -EKG - Many artifacts despite multiple attempts to get proper EKG -S1, Q3 seen. -Consider VQ scan? -Duplex B/L LE - negative for DVT -filter placement if VQ positive #SOB -B/L pleural effusions seens on CT chest (as well as some atelectasis) -secondary to pleural effusions, dCHF, COPD exacerabtion. 4. Anemia, microcytic -Multiple Myeloma (kidney failure + anemia) -SADAF M-spike not observed -Anemia of chronic disease secondary to CKD, TIBC low -FOBT negative 02/25 -Hgb 6.7 - 1 unit PRBC ordered, will check CBC after transfusion -Transfuse with Hgb under 7. Care to check fluid status before transfusing (CHF pt). 4. Sepsis secondary to B/L lower extremity cellulitis -improved -BCx (-) X 5 days; UCx negative -ID on board -clindamycin 300 mg PO q6h - last day today 5. HTN -hydralazine 50 mg PO TID 6. CHF (diastolic) -lasix 80 mg po bid -Causing his LE edema most likely -will get B/L LE duplex to r/o PE 7. Hx of Depression -c/w cymbalta 8. CAD -prasugrel 10 mg PO qd 9. FEN -hypocalcemia - calcitriol - f/u BMP -hyperphosphatemia - 5.8 - f/u phos -hypermagnesmia - 2.5 - f/u Mg 9. Dispo: monitor on floors. Problem List - Problems (1) Acute kidney failure Code(s): N17.9 - ACUTE KIDNEY FAILURE, UNSPECIFIED Qualifiers: Acute renal failure type: unspecified Qualified Code(s): N17.9 - Acute kidney failure, unspecified (2) COPD exacerbation Code(s): J44.1 - CHRONIC OBSTRUCTIVE PULMONARY DISEASE W (ACUTE) EXACERBATION (3) Hyperkalemia Code(s): E87.5 - HYPERKALEMIA (4) Acute and chronic respiratory failure (uxyyn-sa-rjppueq) Code(s): J96.20 - ACUTE AND CHR RESP FAILURE, UNSP W HYPOXIA OR HYPERCAPNIA Qualifiers: Respiratory failure complication: hypoxia and hypercapnia Qualified Code(s): J96.21 - Acute and chronic respiratory failure with hypoxia (5) Acute exacerbation of chronic obstructive pulmonary disease (COPD) Code(s): J44.1 - CHRONIC OBSTRUCTIVE PULMONARY DISEASE W (ACUTE) EXACERBATION (6) Acute on chronic diastolic (congestive) heart failure Code(s): I50.33 - ACUTE ON CHRONIC DIASTOLIC (CONGESTIVE) HEART FAILURE (7) Anxiety and depression Code(s): F41.9 - ANXIETY DISORDER, UNSPECIFIED F32.9 - MAJOR DEPRESSIVE DISORDER, SINGLE EPISODE, UNSPECIFIED (8) Cellulitis Code(s): L03.90 - CELLULITIS, UNSPECIFIED Qualifiers: Site of cellulitis of extremity: lower extremity (9) Chronic kidney disease (CKD) Code(s): N18.9 - CHRONIC KIDNEY DISEASE, UNSPECIFIED Qualifiers: Chronic kidney disease stage: unspecified stage Qualified Code(s): N18.9 - Chronic kidney disease, unspecified (10) Diastolic CHF Code(s): I50.30 - UNSPECIFIED DIASTOLIC (CONGESTIVE) HEART FAILURE (11) Hyperlipidemia Code(s): E78.5 - HYPERLIPIDEMIA, UNSPECIFIED (12) Hypertension Code(s): I10 - ESSENTIAL (PRIMARY) HYPERTENSION (13) Obesities, morbid Code(s): E66.01 - MORBID (SEVERE) OBESITY DUE TO EXCESS CALORIES Qualifiers: Obesity type: with alveolar hypoventilation Qualified Code(s): E66.2 - Morbid (severe) obesity with alveolar hypoventilation (14) Respiratory failure with hypoxia and hypercapnia Code(s): J96.91 - RESPIRATORY FAILURE, UNSPECIFIED WITH HYPOXIA J96.92 - RESPIRATORY FAILURE, UNSPECIFIED WITH HYPERCAPNIA Qualifiers: Chronicity: acute on chronic Qualified Code(s): J96.21 - Acute and chronic respiratory failure with hypoxia; J96.22 - Acute and chronic respiratory failure with hypercapnia (15) Shortness of breath Code(s): R06.02 - SHORTNESS OF BREATH Visit type - Emergency Visit Emergency Visit: Yes ED Registration Date: 02/18/16 Care time: The patient presented to the Emergency Department on the above date and was hospitalized for further evaluation of their emergent condition. - New Patient This patient is new to me today: No - Critical Care Critical Care patient: No
--- NOTE | 2016-02-29 14:26 | EKG ---
Test Reason : Blood Pressure : / mmHG Vent. Rate : 082 BPM Atrial Rate : 084 BPM P-R Int : 000 ms QRS Dur : 164 ms QT Int : 418 ms P-R-T Axes : 000 043 038 degrees QTc Int : 488 ms ATRIAL FIBRILLATION RIGHT BUNDLE BRANCH BLOCK ABNORMAL ECG WHEN COMPARED WITH ECG OF 19-FEB-2016 11:10, ATRIAL FIBRILLATION HAS REPLACED SINUS RHYTHM VENT. RATE HAS INCREASED Confirmed by NAZIA ALLEN, CHRISTEN ([id number]) on 02/29/2016 2:26:14 PM Referred By: CANDIE JAMES DR Overread By: CHRISTEN MANDUJANO MD
--- NOTE | 2016-02-29 14:41 | PN ---
Progress Note, Physician History of Present Illness: resp issues continue to occur otherwise no complaints patient not getting any respite - Current Medication List Current Medications: Active Medications Acetylcysteine (Mucomyst 20 Oral / Inh Use Only*) 200 mg NEB BID [facility] Last Admin: 02/29/16 10:15 Dose: 200 mg Albuterol Sulfate (Ventolin 0.083% Nebulizer Soln -) 1 amp NEB Q4H PRN PRN Reason: SHORT OF BREATH/WHEEZING Last Admin: 02/28/16 18:26 Dose: 1 amp Albuterol Sulfate (Ventolin 0.083% Nebulizer Soln -) 1 amp NEB QIDR [facility] Last Admin: 02/29/16 06:54 Dose: 1 amp Arformoterol Tartrate (Brovana (Restricted To Pulmonology/Resp) -) 1 amp NEB BID [facility] Last Admin: 02/29/16 10:15 Dose: 1 amp Aspirin (Ecotrin -) 81 mg PO DAILY [facility] Last Admin: 02/29/16 11:23 Dose: 81 mg Calcitriol (Rocaltrol -) 0.25 mcg PO DAILY [facility] Last Admin: 02/29/16 11:23 Dose: 0.25 mcg Calcium Acetate (Phoslo -) 667 mg PO TIDCM [facility] Last Admin: 02/29/16 11:22 Dose: 667 mg Clindamycin HCl (Cleocin -) 300 mg PO Q6HPO [facility] Last Admin: 02/29/16 11:20 Dose: 300 mg Duloxetine HCl (Cymbalta -) 20 mg PO DAILY [facility] Last Admin: 02/29/16 11:24 Dose: 20 mg Furosemide (Lasix -) 80 mg PO BID@0600,1400 [facility] Last Admin: 02/29/16 14:24 Dose: 80 mg Guaifenesin (Diabetic Tussin Dm -) 5 ml PO Q4H PRN PRN Reason: COUGH Last Admin: 02/27/16 10:43 Dose: 5 ml Heparin Sodium (Porcine) (Heparin -) 5,000 unit SQ Q8H-IV [facility] Last Admin: 02/29/16 11:24 Dose: Not Given Hydralazine HCl (Apresoline -) 50 mg PO TID [facility] Last Admin: 02/29/16 14:24 Dose: 50 mg Prasugrel (Effient -) 10 mg PO DAILY [facility] Last Admin: 02/29/16 11:24 Dose: 10 mg Prednisone (Deltasone -) 40 mg PO DAILY [facility] Last Admin: 02/29/16 11:22 Dose: 40 mg Pregabalin (Lyrica -) 25 mg PO DAILY [facility] Last Admin: 02/29/16 11:23 Dose: 25 mg Tiotropium [place] (Spiriva -) 1 puff IH DAILY [facility] Last Admin: 02/28/16 09:22 Dose: 1 inh - Objective Vital Signs: Vital Signs Temperature 97.6 F 02/29/16 13:16 Pulse Rate 84 02/29/16 13:16 Respiratory Rate 22 02/29/16 13:16 Blood Pressure 158/64 02/29/16 13:16 O2 Sat by Pulse Oximetry (%) 97 02/29/16 10:41 Constitutional: Yes: Calm, Mild Distress Cardiovascular: Yes: Regular Rate and Rhythm Respiratory: Yes: Poor Air Entry, Rhonchi Gastrointestinal: Yes: Normal Bowel Sounds, Soft Musculoskeletal: Yes: WNL Extremities: Yes: Other Neurological: Yes: Alert, Oriented Psychiatric: Yes: Alert Labs: CBC, BMP 02/29/16 07:50 02/29/16 07:50 INR, PTT INR 1.12 (0.82-1.09) 02/18/16 13:00 Assessment/Plan 75 year-old man with a PMH of HTN, PVD, COPD, CKD (baseline Cr 1.9), nephrolithiasis, and chronic LE lymphedema. Admitted in acute renal failure. Acute on chronic renal failure Hyperkalemia Sepsis s Hypertension Peripheral vascular disease Hypercarbic respiratory failure COPD bilateral cellulitis of the legs plan stopped all abx incentive igor chest physio close monitoring see if patient can get resp physio diuresis
[2016-02-29] MEDS: TIOTROPIUM BROMIDE 18 MCG/INH (DEVICE W/ 5 CAPSULES) IH SCH (15:00)
--- NOTE | 2016-02-29 16:04 | PN ---
Progress Note (short form) - Note Progress Note: Renal Follow up for KARLOS Pt seen and examined at the bedside no acute complaints Vital Signs Temperature 97.7 F 02/29/16 14:03 Pulse Rate 85 02/29/16 14:03 Respiratory Rate 22 02/29/16 14:03 Blood Pressure 163/75 02/29/16 14:03 O2 Sat by Pulse Oximetry (%) 97 02/29/16 10:41 Intake & Output 02/26/16 02/27/16 02/28/16 02/29/16 23:59 23:59 23:59 23:59 Intake Total 1280 600 970 650 Output Total 896 368 7761 800 Balance 760 0 -80 -150 Weight 319 lb 8 oz 321 lb 9.6 oz Gen: NAD CVS: RRR No M/R Lungs: dec BS throughout the lung rye Abd: Soft NT + Mild distension Ext: > 3+ LE Lymph edema, no cyanosis or clubbing CBC, BMP 02/29/16 07:50 02/29/16 07:50 Current Medications Acetylcysteine (Mucomyst 20 Oral / Inh Use Only*) 200 mg NEB BID [facility] Last Admin: 02/29/16 10:15 Dose: 200 mg Albuterol Sulfate (Ventolin 0.083% Nebulizer Soln -) 1 amp NEB Q4H PRN PRN Reason: SHORT OF BREATH/WHEEZING Last Admin: 02/28/16 18:26 Dose: 1 amp Albuterol Sulfate (Ventolin 0.083% Nebulizer Soln -) 1 amp NEB QIDR [facility] Last Admin: 02/29/16 06:54 Dose: 1 amp Arformoterol Tartrate (Brovana (Restricted To Pulmonology/Resp) -) 1 amp NEB BID [facility] Last Admin: 02/29/16 10:15 Dose: 1 amp Aspirin (Ecotrin -) 81 mg PO DAILY [facility] Last Admin: 02/29/16 11:23 Dose: 81 mg Calcitriol (Rocaltrol -) 0.25 mcg PO DAILY [facility] Last Admin: 02/29/16 11:23 Dose: 0.25 mcg Calcium Acetate (Phoslo -) 667 mg PO TIDCM [facility] Last Admin: 02/29/16 11:22 Dose: 667 mg Duloxetine HCl (Cymbalta -) 20 mg PO DAILY [facility] Last Admin: 02/29/16 11:24 Dose: 20 mg Furosemide (Lasix -) 80 mg PO BID@0600,1400 [facility] Last Admin: 02/29/16 14:24 Dose: 80 mg Guaifenesin (Diabetic Tussin Dm -) 5 ml PO Q4H PRN PRN Reason: COUGH Last Admin: 02/27/16 10:43 Dose: 5 ml Heparin Sodium (Porcine) (Heparin -) 5,000 unit SQ Q8H-IV [facility] Last Admin: 02/29/16 11:24 Dose: Not Given Hydralazine HCl (Apresoline -) 50 mg PO TID [facility] Last Admin: 02/29/16 14:24 Dose: 50 mg Prasugrel (Effient -) 10 mg PO DAILY [facility] Last Admin: 02/29/16 11:24 Dose: 10 mg Prednisone (Deltasone -) 40 mg PO DAILY [facility] Last Admin: 02/29/16 11:22 Dose: 40 mg Pregabalin (Lyrica -) 25 mg PO DAILY [facility] Last Admin: 02/29/16 11:23 Dose: 25 mg Tiotropium [place] (Spiriva -) 1 puff IH DAILY [facility] Last Admin: 02/28/16 09:22 Dose: 1 inh A/P 75 year old Gentleman with PMhx of CKD Stage 3 (baseline Cr 1.9), Hx of Nephrolithiasis, Hypertension, COPD, CHF, PVD, Chronic LE lymph edema who was sent into the ED from wound care for increased lethargy and decreased urination for several days with KARLOS with BUN/Cr of 115/7.2 and K of 6.5 #Acute Renal Failure on CKD Cr improving high bun likely secondary to steroids but have to r/o GI bleed given now drop in HGb no indication for CLINICAL RESEARCH SPEC Continue PO lasix #Hypocalcemia/Hyperphosphatemia/Secondary Hyperparatyrodism Continue Phoslo for now continue Calcitriol for now #Microcytic Anemia acute drop in Hgb noted, getting prbc check stool occult blood #Fluid overload/LE edema/Pleural effusions Lasix BID Melvin Johnson DO
--- NOTE | 2016-02-29 17:45 | PN ---
Teaching Attending Note Name of Resident: Freddie Strickland ATTENDING PHYSICIAN STATEMENT I saw and evaluated the patient. I reviewed the resident's note and discussed the case with the resident. I agree with the resident's findings and plan as documented. SUBJECTIVE: no fever or chills. no SOB at rest ,bit cont to have severe SOB with minimal activity . OBJECTIVE: NAD CV: RRR Lungs: course breath sounds , at both lung rey ext: thick skin with no drainage ASSESSMENT AND PLAN: 75 year-old man with a PMHx of HTN, PVD, COPD, CKD (baseline Cr 1.8), nephrolithiasis, D CHF , CAD s/p stenting in 03/23 and chronic LE lymphedema. presented with SOB and was found to have acute hypercapnic resp failure with acute renal failure . 1-Acute hypercapnic resp failure due to COPD exa: severe COPD and diastolic heart failure - cont lasix BID and monitor UOP - cont NEbs and increased dose of steroids ( 40 daily day 2 ) - appreciate pulm and card help 2- cellultis of LE : dc abx 3- KARLOS on CKD: unclear etiology ,no M spike on SPEP ? ATN due to volume depletion. off HD now - monitor - cont calcitriol 4- microcytic anemia . due to CKD - no evidence of iron def ( ACD ) - give one unit of RBC 5- HTN: better . cont HZN. 6- HLOC not ready for dc yet. refused rehab at dc
[2016-02-29 20:14] LABS: MCH 25.2 pg (25.7-33.7); MCHC 32.2 g/dl (32.0-35.9); MEAN CELL VOLUME 78.1 fl (80-96); MEAN PLT VOLUME 8.2 fl (7.5-11.1); PLATELET COUNT 246 K/MM3 (134-434); RDW 17.2 % (11.9-15.9); WHITE BLOOD COUNT 6.9 K/mm3 (4.0-10.0)
[2016-03-01 00:06] LABS: BETA FOR UPE 11.2 % (.); GAMMA FOR UPE 16.9 % (.)
[2016-03-01] MEDS: HEPARIN NA (PORCINE) 5,000 UNITS/ML 1ML VIAL SQ SCH ×3 (02:43→18:05)
[2016-03-01] MEDS: ALBUTEROL SO4 0.083% IH SOL 2.5 MG/3 ML VIAL.NEB. NEB SCH ×3 (05:03→17:45)
[2016-03-01] MEDS: hydrALAZINE HCL 50 MG TABLET (FP) PO SCH ×3 (06:09→21:17)
[2016-03-01] MEDS: FUROSEMIDE 40 MG TABLET (FP) PO SCH (06:09)
[2016-03-01 07:16] LABS: MCH 25.6 pg (25.7-33.7); MCHC 32.8 g/dl (32.0-35.9); MEAN PLT VOLUME 7.6 fl (7.5-11.1); PLATELET COUNT 235 K/MM3 (134-434); RDW 17.6 % (11.9-15.9); WHITE BLOOD COUNT 7.7 K/mm3 (4.0-10.0)
[2016-03-01 07:39] LABS: CREATININE 3.9 mg/dL (0.7-1.3); MAGNESIUM 2.5 mg/dL (1.8-2.4); PHOSPHOROUS 5.7 mg/dL (2.5-4.9)
[2016-03-01] MEDS: CALCIUM ACETATE 667 MG CAPSULE (FP) PO SCH ×3 (08:36→18:05)
[2016-03-01] MEDS: ARFORMOTEROL TARTRATE 15 MCG/2 ML VIAL NEB SCH ×2 (09:10→22:44)
[2016-03-01] MEDS: ACETYLCYSTEINE 20% 200MG/ML 4 ML VIAL *FOR ORAL / INH USE ONLY NEB SCH ×2 (09:10→22:44)
--- NOTE | 2016-03-01 11:04 | PN ---
Progress Note, Physician Chief Complaint: sitting in bed, at bedside no acute distress - Current Medication List Current Medications: Active Medications Acetylcysteine (Mucomyst 20 Oral / Inh Use Only*) 200 mg NEB BID [facility] Last Admin: 02/29/16 21:56 Dose: 200 mg Albuterol Sulfate (Ventolin 0.083% Nebulizer Soln -) 1 amp NEB Q4H PRN PRN Reason: SHORT OF BREATH/WHEEZING Last Admin: 02/28/16 18:26 Dose: 1 amp Albuterol Sulfate (Ventolin 0.083% Nebulizer Soln -) 1 amp NEB QIDR [facility] Last Admin: 03/01/16 05:03 Dose: 1 amp Arformoterol Tartrate (Brovana (Restricted To Pulmonology/Resp) -) 1 amp NEB BID [facility] Last Admin: 02/29/16 21:56 Dose: 1 amp Aspirin (Ecotrin -) 81 mg PO DAILY [facility] Last Admin: 02/29/16 11:23 Dose: 81 mg Calcitriol (Rocaltrol -) 0.25 mcg PO DAILY [facility] Last Admin: 02/29/16 11:23 Dose: 0.25 mcg Calcium Acetate (Phoslo -) 667 mg PO TIDCM [facility] Last Admin: 03/01/16 08:36 Dose: 667 mg Duloxetine HCl (Cymbalta -) 20 mg PO DAILY [facility] Last Admin: 02/29/16 11:24 Dose: 20 mg Furosemide (Lasix -) 80 mg PO BID@0600,1400 [facility] Last Admin: 03/01/16 06:09 Dose: 80 mg Guaifenesin (Diabetic Tussin Dm -) 5 ml PO Q4H PRN PRN Reason: COUGH Last Admin: 02/27/16 10:43 Dose: 5 ml Heparin Sodium (Porcine) (Heparin -) 5,000 unit SQ Q8H-IV [facility] Last Admin: 03/01/16 02:43 Dose: Not Given Hydralazine HCl (Apresoline -) 50 mg PO TID [facility] Last Admin: 03/01/16 06:09 Dose: 50 mg Prasugrel (Effient -) 10 mg PO DAILY [facility] Last Admin: 02/29/16 11:24 Dose: 10 mg Prednisone (Deltasone -) 40 mg PO DAILY [facility] Last Admin: 02/29/16 11:22 Dose: 40 mg Pregabalin (Lyrica -) 25 mg PO DAILY [facility] Last Admin: 02/29/16 11:23 Dose: 25 mg Tiotropium [place] (Spiriva -) 1 puff IH DAILY [facility] Last Admin: 02/29/16 15:00 Dose: 1 inh - Objective Vital Signs: Vital Signs Temperature 97.5 F L 03/01/16 08:51 Pulse Rate 87 03/01/16 08:51 Respiratory Rate 20 03/01/16 08:51 Blood Pressure 168/76 03/01/16 08:51 O2 Sat by Pulse Oximetry (%) 98 02/29/16 21:57 Constitutional: Yes: No Distress Cardiovascular: Yes: Regular Rate and Rhythm Respiratory: Yes: Other (decreased breath sounds bilaterally) Gastrointestinal: Yes: Soft, Abdomen, Obese Edema: Yes Edema: LLE: 2+, RLE: 2+ Neurological: Yes: Alert, Oriented ...Motor Strength: WNL Labs: CBC, BMP 03/01/16 06:15 03/01/16 06:15 INR, PTT INR 1.12 (0.82-1.09) 02/18/16 13:00 Laboratory Tests 02/19/16 02/22/16 02/23/16 06:50 10:30 14:53 WBC Hgb Plt Count Potassium BUN Creatinine Calcium Phosphorus Stool Occult Blood SADAF M-Mendez Not observed Not observed Hepatitis A Ab Total Negative Hep Bs Antigen Negative Hep Bs Antibody Non reactive Hep B Core Total Ab Negative Hepatitis C Antibody 0.1 02/26/16 03/01/16 03/01/16 15:10 06:15 06:15 WBC 7.7 Hgb 7.7 L Plt Count 235 Potassium 4.0 BUN 128 H* Creatinine 3.9 H Calcium 8.0 L Phosphorus 5.7 H Stool Occult Blood Negative SADAF M-Mendez Hepatitis A Ab Total Hep Bs Antigen Hep Bs Antibody Hep B Core Total Ab Hepatitis C Antibody Assessment/Plan Assessment/Plan 75 year old man with a history of HTN, COPD on home O2, Chronic combined systolic/diastolic CHF, CKD, JOY, CAD moderate LV systolic dysfunction, cardiac cath 03/2015 showed 2VD with RCA and LAD disease. He underwent PCI with ABDON of RCA 03/2015 and staged PCI of LAD in 04/2015 with significant improvement in symptoms. 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 -Transfused this admission -Follow H/H -further work up as per PMD Acute on chronic CKD- -creatinine improved since admission, seems to have stabilized -renal following.
[2016-03-01] MEDS: PREGABALIN 25 MG CAPSULE PO SCH (11:19)
[2016-03-01] MEDS: predniSONE 20 MG TABLET (UD) PO SCH (11:19)
[2016-03-01] MEDS: ASPIRIN COATED 81 MG TABLET.EC PO SCH (11:19)
[2016-03-01] MEDS: PRASUGREL HCL 10 MG TAB PO SCH (11:20)
[2016-03-01] MEDS: DULoxetine HCL 20 MG CAPSULE.DR (FP) PO SCH (11:20)
[2016-03-01] MEDS: TIOTROPIUM BROMIDE 18 MCG/INH (DEVICE W/ 5 CAPSULES) IH SCH (11:21)
[2016-03-01] MEDS: CALCITRIOL 0.25 MCG CAPSULE (FP) PO SCH (11:21)
[2016-03-01] MEDS ORDERED: PT OWN MED DRAWER 7, Y5N ONE (11:28)
--- NOTE | 2016-03-01 12:02 | PN ---
Progress Note, Physician History of Present Illness: Pt alert and oriented sitting up in bed. NAD but still complains dyspnea - Current Medication List Current Medications: Active Medications Acetylcysteine (Mucomyst 20 Oral / Inh Use Only*) 200 mg NEB BID [facility] Last Admin: 03/01/16 09:10 Dose: 200 mg Albuterol Sulfate (Ventolin 0.083% Nebulizer Soln -) 1 amp NEB Q4H PRN PRN Reason: SHORT OF BREATH/WHEEZING Last Admin: 02/28/16 18:26 Dose: 1 amp Albuterol Sulfate (Ventolin 0.083% Nebulizer Soln -) 1 amp NEB QIDR [facility] Last Admin: 03/01/16 05:03 Dose: 1 amp Arformoterol Tartrate (Brovana (Restricted To Pulmonology/Resp) -) 1 amp NEB BID [facility] Last Admin: 03/01/16 09:10 Dose: 1 amp Aspirin (Ecotrin -) 81 mg PO DAILY [facility] Last Admin: 03/01/16 11:19 Dose: 81 mg Calcitriol (Rocaltrol -) 0.25 mcg PO DAILY [facility] Last Admin: 03/01/16 11:21 Dose: 0.25 mcg Calcium Acetate (Phoslo -) 667 mg PO TIDCM [facility] Last Admin: 03/01/16 11:19 Dose: 667 mg Duloxetine HCl (Cymbalta -) 20 mg PO DAILY [facility] Last Admin: 03/01/16 11:20 Dose: 20 mg Furosemide (Lasix -) 80 mg PO BID@0600,1400 [facility] Last Admin: 03/01/16 06:09 Dose: 80 mg Guaifenesin (Diabetic Tussin Dm -) 5 ml PO Q4H PRN PRN Reason: COUGH Last Admin: 02/27/16 10:43 Dose: 5 ml Heparin Sodium (Porcine) (Heparin -) 5,000 unit SQ Q8H-IV [facility] Last Admin: 03/01/16 11:20 Dose: Not Given Hydralazine HCl (Apresoline -) 50 mg PO TID [facility] Last Admin: 03/01/16 06:09 Dose: 50 mg Prasugrel (Effient -) 10 mg PO DAILY [facility] Last Admin: 03/01/16 11:20 Dose: 10 mg Prednisone (Deltasone -) 40 mg PO DAILY [facility] Last Admin: 03/01/16 11:19 Dose: 40 mg Pregabalin (Lyrica -) 25 mg PO DAILY [facility] Last Admin: 03/01/16 11:19 Dose: 25 mg Tiotropium [place] (Spiriva -) 1 puff IH DAILY [facility] Last Admin: 03/01/16 11:21 Dose: 1 inh - Objective Vital Signs: Vital Signs Temperature 97.5 F L 03/01/16 08:51 Pulse Rate 86 03/01/16 09:10 Respiratory Rate 20 03/01/16 08:51 Blood Pressure 168/76 03/01/16 08:51 O2 Sat by Pulse Oximetry (%) 94 L 03/01/16 09:10 Constitutional: Yes: Mild Distress Eyes: No: Sclera Icterus HENT: Yes: Atraumatic, Normocephalic Neck: Yes: Supple, Trachea Midline Cardiovascular: Yes: Regular Rate and Rhythm. No: JVD Respiratory: Yes: Diminished (decreased intensity breath sounds bilaterally) Gastrointestinal: Yes: Soft. No: Tenderness Edema: Yes (lyphedema) Edema: LLE: 4+, RLE: 4+ Neurological: Yes: Alert, Oriented Labs: CBC, BMP 03/01/16 06:15 03/01/16 06:15 INR, PTT INR 1.12 (0.82-1.09) 02/18/16 13:00 Problem List - Problems (1) COPD exacerbation Code(s): J44.1 - CHRONIC OBSTRUCTIVE PULMONARY DISEASE W (ACUTE) EXACERBATION (2) Acute and chronic respiratory failure ([id number]) Code(s): J96.20 - ACUTE AND CHR RESP FAILURE, UNSP W HYPOXIA OR HYPERCAPNIA Qualifiers: Respiratory failure complication: hypoxia and hypercapnia Qualified Code(s): J96.21 - Acute and chronic respiratory failure with hypoxia (3) Acute kidney failure Code(s): N17.9 - ACUTE KIDNEY FAILURE, UNSPECIFIED Qualifiers: Acute renal failure type: unspecified Qualified Code(s): N17.9 - Acute kidney failure, unspecified (4) Chronic kidney disease (CKD) Code(s): N18.9 - CHRONIC KIDNEY DISEASE, UNSPECIFIED Qualifiers: Chronic kidney disease stage: unspecified stage Qualified Code(s): N18.9 - Chronic kidney disease, unspecified (5) Cellulitis Code(s): L03.90 - CELLULITIS, UNSPECIFIED Qualifiers: Site of cellulitis of extremity: lower extremity (6) Hyperkalemia Code(s): E87.5 - HYPERKALEMIA (7) Arteriosclerotic heart disease (ASHD) Code(s): I25.10 - ATHSCL HEART DISEASE OF [place] CORONARY ARTERY W/O ANG PCTRS (8) Obesities, morbid Code(s): E66.01 - MORBID (SEVERE) OBESITY DUE TO EXCESS CALORIES Qualifiers: Obesity type: with alveolar hypoventilation Qualified Code(s): E66.2 - Morbid (severe) obesity with alveolar hypoventilation Assessment/Plan Anemia: received one unit yesterday COPD Acute on chronic hypercapneic respiratory failure-has not needed to muse BiPAP last few days CAD; S/P stents; no chest pain or palpitations Acute Renal Failure Chronic Renal Insufficiency: currently Creatinine is 3.9 BUN, 128, Hgb 7.7, K 4.0 Plan: diuretic Steroid inhaled bronchodilator NIPPV prn antibiotic per I.D. monitor cbc and chedmistries
--- NOTE | 2016-03-01 12:44 | PN ---
Progress Note (short form) - Note Progress Note: Renal Follow up for KARLOS Pt seen and examined at the bedside continues to feel cold and has sob no fever Vital Signs Temperature 97.5 F L 03/01/16 08:51 Pulse Rate 86 03/01/16 09:10 Respiratory Rate 20 03/01/16 08:51 Blood Pressure 168/76 03/01/16 08:51 O2 Sat by Pulse Oximetry (%) 94 L 03/01/16 09:10 Intake & Output 02/27/16 02/28/16 02/29/16 03/01/16 23:59 23:59 23:59 23:59 Intake Total 524 447 5777 450 Output Total 600 1050 2300 Balance 0 -80 -800 450 Weight 321 lb 9.6 oz Gen: NAD CVS: RRR No M/R Lungs: dec BS throughout the lung rey Abd: Soft NT + Mild distension Ext: > 3+ LE Lymph edema, no cyanosis or clubbing CBC, BMP 03/01/16 06:15 03/01/16 06:15 Laboratory Tests 03/01/16 06:15 Calcium 8.0 L Phosphorus 5.7 H Magnesium 2.5 H Current Medications Acetylcysteine (Mucomyst 20 Oral / Inh Use Only*) 200 mg NEB BID [facility] Last Admin: 03/01/16 09:10 Dose: 200 mg Albuterol Sulfate (Ventolin 0.083% Nebulizer Soln -) 1 amp NEB Q4H PRN PRN Reason: SHORT OF BREATH/WHEEZING Last Admin: 02/28/16 18:26 Dose: 1 amp Albuterol Sulfate (Ventolin 0.083% Nebulizer Soln -) 1 amp NEB QIDR [facility] Last Admin: 03/01/16 05:03 Dose: 1 amp Arformoterol Tartrate (Brovana (Restricted To Pulmonology/Resp) -) 1 amp NEB BID [facility] Last Admin: 03/01/16 09:10 Dose: 1 amp Aspirin (Ecotrin -) 81 mg PO DAILY [facility] Last Admin: 03/01/16 11:19 Dose: 81 mg Calcitriol (Rocaltrol -) 0.25 mcg PO DAILY [facility] Last Admin: 03/01/16 11:21 Dose: 0.25 mcg Calcium Acetate (Phoslo -) 667 mg PO TIDCM [facility] Last Admin: 03/01/16 11:19 Dose: 667 mg Duloxetine HCl (Cymbalta -) 20 mg PO DAILY [facility] Last Admin: 03/01/16 11:20 Dose: 20 mg Furosemide (Lasix -) 80 mg PO BID@0600,1400 [facility] Last Admin: 03/01/16 06:09 Dose: 80 mg Guaifenesin (Diabetic Tussin Dm -) 5 ml PO Q4H PRN PRN Reason: COUGH Last Admin: 02/27/16 10:43 Dose: 5 ml Heparin Sodium (Porcine) (Heparin -) 5,000 unit SQ Q8H-IV [facility] Last Admin: 03/01/16 11:20 Dose: Not Given Hydralazine HCl (Apresoline -) 50 mg PO TID [facility] Last Admin: 03/01/16 06:09 Dose: 50 mg Prasugrel (Effient -) 10 mg PO DAILY [facility] Last Admin: 03/01/16 11:20 Dose: 10 mg Prednisone (Deltasone -) 40 mg PO DAILY [facility] Last Admin: 03/01/16 11:19 Dose: 40 mg Pregabalin (Lyrica -) 25 mg PO DAILY [facility] Last Admin: 03/01/16 11:19 Dose: 25 mg Tiotropium [place] (Spiriva -) 1 puff IH DAILY [facility] Last Admin: 03/01/16 11:21 Dose: 1 inh A/P 75 year old Gentleman with PMhx of CKD Stage 3 (baseline Cr 1.9), Hx of Nephrolithiasis, Hypertension, COPD, CHF, PVD, Chronic LE lymph edema who was sent into the ED from wound care for increased lethargy and decreased urination for several days with KARLOS with BUN/Cr of 115/7.2 and K of 6.5 #Acute Renal Failure on CKD Cr improving BUN elevated (steroids, ? GI bleed) no indication for FAMILY SERVICES MANAGER continue to trend BUN/Cr #Hypocalcemia/Hyperphosphatemia/Secondary Hyperparatyrodism Continue Phoslo for now continue Calcitriol for now #Microcytic Anemia acute drop in Hgb noted, getting prbc check stool occult blood #Fluid overload/LE edema/Pleural effusions Give Extra Lasix 80mg IV this afternoon (Discussed with Dr. Strickland) Trend dialy weights pulmonary following BIPAP as needed Melvin Johnson DO
[2016-03-01] MEDS ORDERED: FUROSEMIDE 40 MG/4 ML INJECTABLE VIAL IVPB ONE (14:00)
--- NOTE | 2016-03-01 16:55 | PN ---
Physical Exam: SUBJECTIVE: Patient seen and examined at bedside in AM. Pt states he still doesn 't feel well and feels like he has cough, runny nose. He still feels as though he has SOB with little activity. He denies any CP, abdominal pain, or any GI/ issues. OBJECTIVE: Vital Signs Temperature 97.8 F 03/01/16 14:06 Pulse Rate 88 03/01/16 14:06 Respiratory Rate 24 03/01/16 14:06 Blood Pressure 160/70 03/01/16 14:06 O2 Sat by Pulse Oximetry (%) 94 L 03/01/16 10:00 GENERAL: The patient is awake, alert, and fully oriented, in no acute distress. Sitting in bed comfortably. HEAD: Normal with no signs of trauma. EYES: conjunctiva clear. No ptosis. ENT: moist mucous membranes. NECK: Trachea midline, full range of motion. LUNGS: Diminished breath sounds. Did not appreciate crackles or wheezing. HEART: Distant heart sounds. Regular rate and rhythm, S1, S2 without murmur, rub or gallop. ABDOMEN: Soft, obese, nontender, nondistended, normoactive bowel sounds, no guarding, no rebound, no hepatosplenomegaly, no masses. EXTREMITIES: 2+ pulses, warm, well-perfused, B/L cellulitic changes, B/L LE 3+ pitting edema and alvarado crusted chronic lesions. NEUROLOGICAL: Normal speech, gait not observed. PSYCH: Normal mood, normal affect. SKIN: Warm, dry, normal turgor. Laboratory Results - last 24 hr 02/24/16 02/29/16 03/01/16 21:51 19:30 06:15 WBC 6.9 7.7 RBC 3.18 L 3.01 L Hgb 8.0 L D 7.7 L Hct 24.8 L D 23.5 L MCV 78.1 L 78.0 L MCHC 32.2 32.8 RDW 17.2 H 17.6 H Plt Count 246 235 MPV 8.2 7.6 Sodium Potassium Chloride Carbon Dioxide Anion Gap BUN Creatinine Random Glucose Calcium Phosphorus Magnesium Albumin % 56.7 Gamma Globulins (%) 16.9 Ur Total Protein 24 Hr 386.0 H Urine Total Protein 38.6 U PEP M-Mendez TNP U Random SADAF M-Mendez % Comment: Ref Test Comments 03/01/16 06:15 WBC RBC Hgb Hct MCV MCHC RDW Plt Count MPV Sodium 145 Potassium 4.0 Chloride 106 Carbon Dioxide 28 Anion Gap 11 BUN 128 H* Creatinine 3.9 H Random Glucose 104 Calcium 8.0 L Phosphorus 5.7 H Magnesium 2.5 H Albumin % Gamma Globulins (%) Ur Total Protein 24 Hr Urine Total Protein U PEP M-Mendez U Random SADAF M-Mendez % Ref Test Comments Active Medications Generic Name Dose Route Start Last Admin Trade Name Freq PRN Reason Stop Dose Admin Acetylcysteine 200 mg 02/26/16 10:00 03/01/16 09:10 Mucomyst 20 Oral / Inh Use Only* NEB 200 mg BID LESLEE Administration Albuterol Sulfate 1 amp 02/28/16 17:13 02/28/16 18:26 Ventolin 0.083% Nebulizer Soln - NEB 1 amp Q4H PRN Administration SHORT OF BREATH/WHEEZING Albuterol Sulfate 1 amp 02/28/16 18:45 03/01/16 12:50 Ventolin 0.083% Nebulizer Soln - NEB 1 amp QIDR LESLEE Administration Arformoterol Tartrate 1 amp 02/23/16 22:00 03/01/16 09:10 Brovana (Restricted To Pulmonology/Resp) - NEB 1 amp BID LESLEE Administration Aspirin 81 mg 02/24/16 10:00 03/01/16 11:19 Ecotrin - PO 81 mg DAILY LESLEE Administration Calcitriol 0.25 mcg 02/24/16 12:45 03/01/16 11:21 Rocaltrol - PO 0.25 mcg DAILY LESLEE Administration Calcium Acetate 667 mg 02/23/16 17:30 03/01/16 11:19 Phoslo - PO 667 mg TIDCM LESLEE Administration Duloxetine HCl 20 mg 02/24/16 10:00 03/01/16 11:20 Cymbalta - PO 20 mg DAILY LESLEE Administration Furosemide 80 mg 02/28/16 14:00 03/01/16 06:09 Lasix - PO 80 mg BID@0600,1400 LESLEE Administration Guaifenesin 5 ml 02/22/16 22:29 02/27/16 10:43 Diabetic Tussin Dm - PO 5 ml Q4H PRN Administration COUGH Heparin Sodium (Porcine) 5,000 unit 02/23/16 18:00 03/01/16 11:20 Heparin - SQ Not Given Q8H-IV LESLEE Hydralazine HCl 50 mg 02/28/16 22:00 03/01/16 14:38 Apresoline - PO 50 mg TID LESLEE Administration Prasugrel 10 mg 02/24/16 10:00 03/01/16 11:20 Effient - PO 10 mg DAILY LESLEE Administration Prednisone 40 mg 02/28/16 10:00 03/01/16 11:19 Deltasone - PO 40 mg DAILY LESLEE Administration Pregabalin 25 mg 02/24/16 10:00 03/01/16 11:19 Lyrica - PO 25 mg DAILY LESLEE Administration Tiotropium [place] 1 puff 02/22/16 11:15 03/01/16 11:21 Spiriva - IH 1 inh DAILY LESLEE Administration ASSESSMENT/PLAN: 75 year-old man with a PMH of HTN, PVD, COPD, CKD (baseline Cr 1.9), nephrolithiasis, and chronic LE lymphedema. Admitted for acute renal failure ( hyperkalemia) and respiratory distress. # Acute on chronic renal failure -Improving slowly -Today BUN/Cr 128/3.9 (baseline 1.8-1.9), creatinine improving slowly off HD. -urine: output improving - 2300 ml yesterday, nothing recorded on chart today. -lasix po 80 mg bid -one dose of IV lasix 80 mg given today. # Acute Hyperkalemia -resolved -4.0 today; f/u bmp # Acute COPD exacerbation with hypercapnic respiratory failure -SOB with minimal exertion -Bipap as needed -NC O2 3L. Still oxygenating well -SOB when moving even with minimal exertion -brovana, albuterol PRN -prednisone 40 mg PO qd (day 3) -will require higher O2 at home when ambulating. Currently on 2L O2 at all times at home, may require 2L at rest and more while ambulating. #Chest pain -EKG - Many artifacts despite multiple attempts to get proper EKG -S1, Q3 seen. -Consider VQ scan? -Duplex B/L LE - negative for DVT -filter placement if VQ positive #SOB -B/L moderate pleural effusions seens on CT chest (as well as some atelectasis) -secondary to pleural effusions, dCHF, COPD exacerabtion. -c/w diuresis -Consider tapping effusions to help with SOB? 4. Anemia, microcytic -Multiple Myeloma (kidney failure + anemia) -SADAF M-spike not observed -Anemia of chronic disease secondary to CKD, TIBC low -FOBT negative 02/25 -Hgb 7.7 (s/p 1 unit PRBC), f/u CBC tomorrow. -Transfuse if Hgb <7. 4. Sepsis secondary to B/L lower extremity cellulitis -off abx 5. HTN -hydralazine 50 mg PO TID 6. CHF (diastolic) -lasix 80 mg po bid -Causing his LE edema most likely -will get B/L LE duplex to r/o PE 7. Hx of Depression -c/w cymbalta 8. CAD -prasugrel 10 mg PO qd 9. FEN -hypocalcemia -c/w calcitriol - f/u BMP -hyperphosphatemia - 5.7 - f/u phos -hypermagnesmia - 2.5 - f/u Mg 9. Dispo: monitor on floors. -tap pleural effusions? Problem List - Problems (1) Acute kidney failure Code(s): N17.9 - ACUTE KIDNEY FAILURE, UNSPECIFIED Qualifiers: Acute renal failure type: unspecified Qualified Code(s): N17.9 - Acute kidney failure, unspecified (2) COPD exacerbation Code(s): J44.1 - CHRONIC OBSTRUCTIVE PULMONARY DISEASE W (ACUTE) EXACERBATION (3) Hyperkalemia Code(s): E87.5 - HYPERKALEMIA (4) Acute and chronic respiratory failure ([id number]) Code(s): J96.20 - ACUTE AND CHR RESP FAILURE, UNSP W HYPOXIA OR HYPERCAPNIA Qualifiers: Respiratory failure complication: hypoxia and hypercapnia Qualified Code(s): J96.21 - Acute and chronic respiratory failure with hypoxia (5) Acute exacerbation of chronic obstructive pulmonary disease (COPD) Code(s): J44.1 - CHRONIC OBSTRUCTIVE PULMONARY DISEASE W (ACUTE) EXACERBATION (6) Acute on chronic diastolic (congestive) heart failure Code(s): I50.33 - ACUTE ON CHRONIC DIASTOLIC (CONGESTIVE) HEART FAILURE (7) Anxiety and depression Code(s): F41.9 - ANXIETY DISORDER, UNSPECIFIED F32.9 - MAJOR DEPRESSIVE DISORDER, SINGLE EPISODE, UNSPECIFIED (8) Cellulitis Code(s): L03.90 - CELLULITIS, UNSPECIFIED Qualifiers: Site of cellulitis of extremity: lower extremity (9) Chronic kidney disease (CKD) Code(s): N18.9 - CHRONIC KIDNEY DISEASE, UNSPECIFIED Qualifiers: Chronic kidney disease stage: unspecified stage Qualified Code(s): N18.9 - Chronic kidney disease, unspecified (10) Diastolic CHF Code(s): I50.30 - UNSPECIFIED DIASTOLIC (CONGESTIVE) HEART FAILURE (11) Hyperlipidemia Code(s): E78.5 - HYPERLIPIDEMIA, UNSPECIFIED (12) Hypertension Code(s): I10 - ESSENTIAL (PRIMARY) HYPERTENSION (13) Obesities, morbid Code(s): E66.01 - MORBID (SEVERE) OBESITY DUE TO EXCESS CALORIES Qualifiers: Obesity type: with alveolar hypoventilation Qualified Code(s): E66.2 - Morbid (severe) obesity with alveolar hypoventilation (14) Respiratory failure with hypoxia and hypercapnia Code(s): J96.91 - RESPIRATORY FAILURE, UNSPECIFIED WITH HYPOXIA J96.92 - RESPIRATORY FAILURE, UNSPECIFIED WITH HYPERCAPNIA Qualifiers: Chronicity: acute on chronic Qualified Code(s): J96.21 - Acute and chronic respiratory failure with hypoxia; J96.22 - Acute and chronic respiratory failure with hypercapnia (15) Shortness of breath Code(s): R06.02 - SHORTNESS OF BREATH Visit type - Emergency Visit Emergency Visit: Yes ED Registration Date: 02/18/16 Care time: The patient presented to the Emergency Department on the above date and was hospitalized for further evaluation of their emergent condition. - New Patient This patient is new to me today: No - Critical Care Critical Care patient: No
--- NOTE | 2016-03-01 17:36 | PN ---
Progress Note, Physician History of Present Illness: patient actually feels a little better was able to walk till the door - Current Medication List Current Medications: Active Medications Acetylcysteine (Mucomyst 20 Oral / Inh Use Only*) 200 mg NEB BID [facility] Last Admin: 03/01/16 09:10 Dose: 200 mg Albuterol Sulfate (Ventolin 0.083% Nebulizer Soln -) 1 amp NEB Q4H PRN PRN Reason: SHORT OF BREATH/WHEEZING Last Admin: 02/28/16 18:26 Dose: 1 amp Albuterol Sulfate (Ventolin 0.083% Nebulizer Soln -) 1 amp NEB QIDR [facility] Last Admin: 03/01/16 12:50 Dose: 1 amp Arformoterol Tartrate (Brovana (Restricted To Pulmonology/Resp) -) 1 amp NEB BID [facility] Last Admin: 03/01/16 09:10 Dose: 1 amp Aspirin (Ecotrin -) 81 mg PO DAILY [facility] Last Admin: 03/01/16 11:19 Dose: 81 mg Calcitriol (Rocaltrol -) 0.25 mcg PO DAILY [facility] Last Admin: 03/01/16 11:21 Dose: 0.25 mcg Calcium Acetate (Phoslo -) 667 mg PO TIDCM [facility] Last Admin: 03/01/16 11:19 Dose: 667 mg Duloxetine HCl (Cymbalta -) 20 mg PO DAILY [facility] Last Admin: 03/01/16 11:20 Dose: 20 mg Furosemide (Lasix -) 80 mg PO BID@0600,1400 [facility] Last Admin: 03/01/16 06:09 Dose: 80 mg Guaifenesin (Diabetic Tussin Dm -) 5 ml PO Q4H PRN PRN Reason: COUGH Last Admin: 02/27/16 10:43 Dose: 5 ml Heparin Sodium (Porcine) (Heparin -) 5,000 unit SQ Q8H-IV [facility] Last Admin: 03/01/16 11:20 Dose: Not Given Hydralazine HCl (Apresoline -) 50 mg PO TID [facility] Last Admin: 03/01/16 14:38 Dose: 50 mg Prasugrel (Effient -) 10 mg PO DAILY [facility] Last Admin: 03/01/16 11:20 Dose: 10 mg Prednisone (Deltasone -) 40 mg PO DAILY [facility] Last Admin: 03/01/16 11:19 Dose: 40 mg Pregabalin (Lyrica -) 25 mg PO DAILY [facility] Last Admin: 03/01/16 11:19 Dose: 25 mg Tiotropium [place] (Spiriva -) 1 puff IH DAILY [facility] Last Admin: 03/01/16 11:21 Dose: 1 inh - Objective Vital Signs: Vital Signs Temperature 97.8 F 03/01/16 14:06 Pulse Rate 88 03/01/16 14:06 Respiratory Rate 24 03/01/16 14:06 Blood Pressure 160/70 03/01/16 14:06 O2 Sat by Pulse Oximetry (%) 94 L 03/01/16 10:00 Constitutional: Yes: Calm, Mild Distress Cardiovascular: Yes: Regular Rate and Rhythm Respiratory: Yes: Poor Air Entry, Rhonchi Gastrointestinal: Yes: Normal Bowel Sounds, Soft Extremities: Yes: Other Edema: LLE: 2+, RLE: 2+ Neurological: Yes: Alert, Oriented Psychiatric: Yes: Alert, Oriented Labs: CBC, BMP 03/01/16 06:15 03/01/16 06:15 INR, PTT INR 1.12 (0.82-1.09) 02/18/16 13:00 Assessment/Plan 75 year-old man with a PMH of HTN, PVD, COPD, CKD (baseline Cr 1.9), nephrolithiasis, and chronic LE lymphedema. Admitted in acute renal failure. Acute on chronic renal failure Hyperkalemia Sepsis s Hypertension Peripheral vascular disease Hypercarbic respiratory failure COPD bilateral cellulitis of the legs plan stable off of abxx incentive igor chest physio close monitoring see if patient can get resp physio diuresis
--- NOTE | 2016-03-01 17:59 | PN ---
Teaching Attending Note Name of Resident: Freddie Strickland ATTENDING PHYSICIAN STATEMENT I saw and evaluated the patient. I reviewed the resident's note and discussed the case with the resident. I agree with the resident's findings and plan as documented. SUBJECTIVE: Patient is not feeling well, feels very SOB [email or web address] Exertion. OBJECTIVE: Vital Signs Temperature 97.8 F 03/01/16 14:06 Pulse Rate 88 03/01/16 14:06 Respiratory Rate 24 03/01/16 14:06 Blood Pressure 160/70 03/01/16 14:06 O2 Sat by Pulse Oximetry (%) 94 L 03/01/16 10:00 GENERAL: awake, alert, and fully oriented, in moderate distress. Sitting on the side of the bed. HEAD: Normal with no signs of trauma. EYES: conjunctiva clear. ENT: moist mucous membranes. NECK: Trachea midline, full range of motion. LUNGS: Diminished breath sounds. Did not appreciate crackles or wheezing. HEART: Distant heart sounds. Regular rate and rhythm, S1, S2 without murmur, rub or gallop. ABDOMEN: Soft, obese, NT,ND, normoactive bowel sounds, no guarding, no rebound, no hepatosplenomegaly, no masses. EXTREMITIES: 2+ pulses, warm, well-perfused, B/L cellulitic changes, B/L LE 3+ pitting edema and alvarado crusted chronic lesions. NEUROLOGICAL: Normal speech, gait not observed. PSYCH: Normal mood, normal affect. SKIN: Warm, dry, normal turgor. CBCD WBC 7.7 K/mm3 (4.0-10.0) 03/01/16 06:15 RBC 3.01 M/mm3 (4.00-5.60) L 03/01/16 06:15 Hgb 7.7 GM/dL (11.7-16.9) L 03/01/16 06:15 Hct 23.5 % (35.4-49) L 03/01/16 06:15 MCV 78.0 fl (80-96) L 03/01/16 06:15 MCHC 32.8 g/dl (32.0-35.9) 03/01/16 06:15 RDW 17.6 % (11.9-15.9) H 03/01/16 06:15 Plt Count 235 K/MM3 (134-434) 03/01/16 06:15 MPV 7.6 fl (7.5-11.1) 03/01/16 06:15 CMP Sodium 145 mmol/L (136-145) 03/01/16 06:15 Potassium 4.0 mmol/L (3.5-5.1) 03/01/16 06:15 Chloride 106 mmol/L (98-107) 03/01/16 06:15 Carbon Dioxide 28 mmol/L (21-32) 03/01/16 06:15 Anion Gap 11 (8-16) 03/01/16 06:15 BUN 128 mg/dL (7-18) H* 03/01/16 06:15 Creatinine 3.9 mg/dL (0.7-1.3) H 03/01/16 06:15 Creat Clearance w eGFR 12.28 (>60) 02/24/16 06:15 Random Glucose 104 mg/dL (74-106) 03/01/16 06:15 Calcium 8.0 mg/dL (8.5-10.1) L 03/01/16 06:15 Total Bilirubin 0.5 mg/dL (0.2-1.0) D 02/24/16 06:15 AST 23 U/L (15-37) 02/24/16 06:15 ALT 41 U/L (12-78) 02/24/16 06:15 Alkaline Phosphatase 67 U/L (45-117) 02/24/16 06:15 Total Protein 5.8 g/dl (6.4-8.2) L 02/24/16 06:15 Albumin 2.8 g/dl (3.4-5.0) L 02/24/16 06:15 CARDIAC ENZYMES Creatine Kinase 76 IU/L (39-308) 02/19/16 05:30 Troponin I < 0.02 ng/ml (0.015-0.045) 02/19/16 21:50 Current Medications Generic Name Dose Route Start Last Admin Trade Name Freq PRN Reason Stop Dose Admin Acetylcysteine 200 mg 02/26/16 10:00 03/01/16 09:10 Mucomyst 20 Oral / Inh Use Only* NEB 200 mg BID LESLEE Administration Albuterol Sulfate 1 amp 02/28/16 17:13 02/28/16 18:26 Ventolin 0.083% Nebulizer Soln - NEB 1 amp Q4H PRN Administration SHORT OF BREATH/WHEEZING Albuterol Sulfate 1 amp 02/28/16 18:45 03/01/16 12:50 Ventolin 0.083% Nebulizer Soln - NEB 1 amp QIDR LESLEE Administration Arformoterol Tartrate 1 amp 02/23/16 22:00 03/01/16 09:10 Brovana (Restricted To Pulmonology/Resp) - NEB 1 amp BID LESLEE Administration Aspirin 81 mg 02/24/16 10:00 03/01/16 11:19 Ecotrin - PO 81 mg DAILY LESLEE Administration Calcitriol 0.25 mcg 02/24/16 12:45 03/01/16 11:21 Rocaltrol - PO 0.25 mcg DAILY LESLEE Administration Calcium Acetate 667 mg 02/23/16 17:30 03/01/16 11:19 Phoslo - PO 667 mg TIDCM LESLEE Administration Duloxetine HCl 20 mg 02/24/16 10:00 03/01/16 11:20 Cymbalta - PO 20 mg DAILY L[facility]LEE Administration Furosemide 80 mg 02/28/16 14:00 03/01/16 06:09 Lasix - PO 80 mg BID@0600,1400 [facility]E Administration Guaifenesin 5 ml 02/22/16 22:29 02/27/16 10:43 Diabetic Tussin Dm - PO 5 ml Q4H PRN Administration COUGH Heparin Sodium (Porcine) 5,000 unit 02/23/16 18:00 03/01/16 11:20 Heparin - SQ Not Given Q8H-IV L[facility]LEE Hydralazine HCl 50 mg 02/28/16 22:00 03/01/16 14:38 Apresoline - PO 50 mg TID LESLEE Administration Prasugrel 10 mg 02/24/16 10:00 03/01/16 11:20 Effient - PO 10 mg DAILY L[facility]E Administration Prednisone 40 mg 02/28/16 10:00 03/01/16 11:19 Deltasone - PO 40 mg DAILY L[facility]E Administration Pregabalin 25 mg 02/24/16 10:00 03/01/16 11:19 Lyrica - PO 25 mg DAILY L[facility]E Administration Tiotropium [place] 1 puff 02/22/16 11:15 03/01/16 11:21 Spiriva - IH 1 inh DAILY LESLEE Administration Medication Instructions Recorded Acetaminophen W/ Codeine #3 1 tab PO Q6H PRN 02/18/16 [Tylenol # 3 -] Albuterol 0.083% Nebulizer [place] 1 amp NEB ASDIR PRN 02/18/16 [Ventolin 0.083% Nebulizer Soln -] Aspirin [Ecotrin] 81 mg PO DAILY 02/18/16 Duloxetine HCl 20 mg PO DAILY 02/18/16 Furosemide 20 mg PO HS 02/18/16 Furosemide 40 mg PO DAILY 02/18/16 Hydralazine HCl [Apresoline -] 50 mg PO HS 02/18/16 Prasugrel HCl [Effient] 10 mg PO DAILY 02/18/16 Prednisone 5 mg PO DAILY 02/18/16 Pregabalin [Lyrica] 25 mg PO DAILY 02/18/16 ASSESSMENT AND PLAN: 75 year-old man with a PMHx of HTN, PVD, COPD, CKD (baseline Cr 1.8), nephrolithiasis, D CHF , CAD s/p stenting in 03/23 and chronic LE lymphedema. presented with SOB and was found to have acute hypercapnic resp failure with acute renal failure . # Acute hypercapnic resp failure due to severe COPD exacerbation with diastolic heart failure On IV LAsix BID and monitor I/O, will change Prednisone to Solu MEdrol 60mg IV q8h x 2 days then will reduce ; Pulm and card. on the case. # Acute cellultis of LE : of abxs now # KARLOS on CKD: unclear etiology ,no M spike on SPEP ? ATN due to volume depletion. off HD now # microcytic anemia . due to CKD ; no evidence of iron def ( ACD ) s/p one unit of RBC # HTN: is controlled now cont Hydralazine not ready for dc yet.
[2016-03-01] MEDS: methylPREDNISolone NA SUCC 40 MG/1 ML VIAL IVPB SCH (21:17)
[2016-03-02] MEDS: ALBUTEROL SO4 0.083% IH SOL 2.5 MG/3 ML VIAL.NEB. NEB SCH ×4 (00:03→18:50)
[2016-03-02] MEDS: methylPREDNISolone NA SUCC 40 MG/1 ML VIAL IVPB SCH ×3 (01:55→17:33)
[2016-03-02] MEDS: hydrALAZINE HCL 50 MG TABLET (FP) PO SCH ×3 (06:07→21:31)
[2016-03-02] MEDS: FUROSEMIDE 40 MG TABLET (FP) PO SCH ×2 (06:07→14:47)
[2016-03-02 07:22] LABS: BASOPHIL 0.1 % (0-2.0); MCH 26.2 pg (25.7-33.7); MCHC 33.4 g/dl (32.0-35.9); MEAN CELL VOLUME 78.3 fl (80-96); MEAN PLT VOLUME 7.7 fl (7.5-11.1); NEUTROPHILS 89.8 % (42.8-82.8); PLATELET COUNT 232 K/MM3 (134-434); RDW 18.2 % (11.9-15.9); WHITE BLOOD COUNT 5.4 K/mm3 (4.0-10.0)
[2016-03-02 07:40] LABS: CALCIUM 7.8 mg/dL (8.5-10.1); MAGNESIUM 2.4 mg/dL (1.8-2.4)
[2016-03-02 07:43] LABS: CREATININE 3.9 mg/dL (0.7-1.3); PHOSPHOROUS 5.6 mg/dL (2.5-4.9)
[2016-03-02] MEDS: CALCIUM ACETATE 667 MG CAPSULE (FP) PO SCH ×3 (08:45→17:32)
[2016-03-02] MEDS ORDERED: PT OWN MED DRAWER 7, Y5N ONE ×2 (09:14→10:22)
[2016-03-02] MEDS: ACETYLCYSTEINE 20% 200MG/ML 4 ML VIAL *FOR ORAL / INH USE ONLY NEB SCH ×2 (09:20→22:59)
[2016-03-02] MEDS: ARFORMOTEROL TARTRATE 15 MCG/2 ML VIAL NEB SCH ×2 (09:20→23:00)
--- NOTE | 2016-03-02 10:58 | PN ---
Progress Note (short form) - Note Progress Note: Renal Follow up for KARLOS Pt seen and examined at the bedside feels better today godd urine output Vital Signs Temperature 97.9 F 03/02/16 09:26 Pulse Rate 100 H 03/02/16 09:26 Respiratory Rate 22 03/02/16 09:26 Blood Pressure 145/78 03/02/16 09:26 O2 Sat by Pulse Oximetry (%) 93 L 03/02/16 09:20 Intake & Output 02/28/16 02/29/16 03/01/16 03/02/16 23:59 23:59 23:59 23:59 Intake Total 970 1500 1140 200 Output Total 1050 2300 1200 400 Balance -80 -800 -60 -200 Weight 321 lb 9.6 oz Gen: NAD CVS: RRR No M/R Lungs: dec BS throughout the lung rey Abd: Soft NT + Mild distension Ext: > 3+ LE Lymph edema, no cyanosis or clubbing CBC, BMP 03/02/16 06:30 03/02/16 06:30 Current Medications Acetylcysteine (Mucomyst 20 Oral / Inh Use Only*) 200 mg NEB BID [facility] Last Admin: 03/02/16 09:20 Dose: 200 mg Albuterol Sulfate (Ventolin 0.083% Nebulizer Soln -) 1 amp NEB Q4H PRN PRN Reason: SHORT OF BREATH/WHEEZING Last Admin: 02/28/16 18:26 Dose: 1 amp Albuterol Sulfate (Ventolin 0.083% Nebulizer Soln -) 1 amp NEB QIDR [facility] Last Admin: 03/02/16 06:54 Dose: 1 amp Arformoterol Tartrate (Brovana (Restricted To Pulmonology/Resp) -) 1 amp NEB BID [facility] Last Admin: 03/02/16 09:20 Dose: 1 amp Aspirin (Ecotrin -) 81 mg PO DAILY [facility] Last Admin: 03/01/16 11:19 Dose: 81 mg Calcitriol (Rocaltrol -) 0.25 mcg PO DAILY [facility] Last Admin: 03/01/16 11:21 Dose: 0.25 mcg Calcium Acetate (Phoslo -) 667 mg PO TIDCM [facility] Last Admin: 03/02/16 08:45 Dose: 667 mg Duloxetine HCl (Cymbalta -) 20 mg PO DAILY [facility] Last Admin: 03/01/16 11:20 Dose: 20 mg Furosemide (Lasix -) 80 mg PO BID@0600,1400 [facility] Last Admin: 03/02/16 06:07 Dose: 80 mg Guaifenesin (Diabetic Tussin Dm -) 5 ml PO Q4H PRN PRN Reason: COUGH Last Admin: 02/27/16 10:43 Dose: 5 ml Hydralazine HCl (Apresoline -) 50 mg PO TID [facility] Last Admin: 03/02/16 06:07 Dose: 50 mg Methylprednisolone Sodium Succinate (Solu-Medrol -) 60 mg IVPB Q8H-IV [facility] Last Admin: 03/02/16 01:55 Dose: 60 mg Prasugrel (Effient -) 10 mg PO DAILY [facility] Last Admin: 03/01/16 11:20 Dose: 10 mg Pregabalin (Lyrica -) 25 mg PO DAILY [facility] Tiotropium [place] (Spiriva -) 1 puff IH DAILY [facility] Last Admin: 03/01/16 11:21 Dose: 1 inh A/P 75 year old Gentleman with PMhx of CKD Stage 3 (baseline Cr 1.9), Hx of Nephrolithiasis, Hypertension, COPD, CHF, PVD, Chronic LE lymph edema who was sent into the ED from wound care for increased lethargy and decreased urination for several days with KARLOS with BUN/Cr of 115/7.2 and K of 6.5 #Acute Renal Failure on CKD Cr improving no uremia despite high bun (steroid induced) continue Lasix diuresis Dose all meds for Cr Cl less then 20 check daily weights no indication for [employer] #Hypocalcemia/Hyperphosphatemia/Secondary Hyperparatyrodism Corrected ca is within normal limits now Continue Phoslo for now continue Calcitriol for now #Microcytic Anemia acute drop in Hgb noted, getting prbc check stool occult blood #Fluid overload/LE edema/Pleural effusions Continue Lasix 80mg PO BID Trend weights Melvin Johnson DO
--- NOTE | 2016-03-02 11:05 | PN ---
Progress Note, Physician - Current Medication List Current Medications: Active Medications Acetylcysteine (Mucomyst 20 Oral / Inh Use Only*) 200 mg NEB BID [facility] Last Admin: 03/02/16 09:20 Dose: 200 mg Albuterol Sulfate (Ventolin 0.083% Nebulizer Soln -) 1 amp NEB Q4H PRN PRN Reason: SHORT OF BREATH/WHEEZING Last Admin: 02/28/16 18:26 Dose: 1 amp Albuterol Sulfate (Ventolin 0.083% Nebulizer Soln -) 1 amp NEB QIDR [facility] Last Admin: 03/02/16 06:54 Dose: 1 amp Arformoterol Tartrate (Brovana (Restricted To Pulmonology/Resp) -) 1 amp NEB BID [facility] Last Admin: 03/02/16 09:20 Dose: 1 amp Aspirin (Ecotrin -) 81 mg PO DAILY [facility] Last Admin: 03/01/16 11:19 Dose: 81 mg Calcitriol (Rocaltrol -) 0.25 mcg PO DAILY [facility] Last Admin: 03/01/16 11:21 Dose: 0.25 mcg Calcium Acetate (Phoslo -) 667 mg PO TIDCM [facility] Last Admin: 03/02/16 08:45 Dose: 667 mg Duloxetine HCl (Cymbalta -) 20 mg PO DAILY [facility] Last Admin: 03/01/16 11:20 Dose: 20 mg Furosemide (Lasix -) 80 mg PO BID@0600,1400 [facility] Last Admin: 03/02/16 06:07 Dose: 80 mg Guaifenesin (Diabetic Tussin Dm -) 5 ml PO Q4H PRN PRN Reason: COUGH Last Admin: 02/27/16 10:43 Dose: 5 ml Hydralazine HCl (Apresoline -) 50 mg PO TID [facility] Last Admin: 03/02/16 06:07 Dose: 50 mg Methylprednisolone Sodium Succinate (Solu-Medrol -) 60 mg IVPB Q8H-IV [facility] Last Admin: 03/02/16 01:55 Dose: 60 mg Prasugrel (Effient -) 10 mg PO DAILY [facility] Last Admin: 03/01/16 11:20 Dose: 10 mg Pregabalin (Lyrica -) 25 mg PO DAILY [facility] Tiotropium [place] (Spiriva -) 1 puff IH DAILY [facility] Last Admin: 03/01/16 11:21 Dose: 1 inh - Objective Vital Signs: Vital Signs Temperature 97.9 F 03/02/16 09:26 Pulse Rate 100 H 03/02/16 09:26 Respiratory Rate 22 03/02/16 09:26 Blood Pressure 145/78 03/02/16 09:26 O2 Sat by Pulse Oximetry (%) 93 L 03/02/16 09:20 Eyes: Yes: WNL, Conjunctiva Clear, EOM Intact HENT: Yes: WNL, Atraumatic, Normocephalic Neck: Yes: WNL, Supple, Trachea Midline Cardiovascular: Yes: WNL, Regular Rate and Rhythm Respiratory: Yes: WNL, Regular, CTA Bilaterally Gastrointestinal: Yes: WNL, Normal Bowel Sounds Genitourinary: Yes: WNL Musculoskeletal: Yes: WNL Extremities: Yes: WNL Edema: No Edema: LLE: 2+, RLE: 2+ Integumentary: Yes: WNL Neurological: Yes: WNL, Alert, Oriented ...Motor Strength: WNL Psychiatric: Yes: WNL Labs: CBC, BMP 03/02/16 06:30 03/02/16 06:30 INR, PTT INR 1.12 (0.82-1.09) 02/18/16 13:00 Assessment/Plan 75 year old man with a history of HTN, COPD on home O2, Chronic combined systolic/diastolic CHF, CKD, JOY, CAD moderate LV systolic dysfunction, cardiac cath 03/2015 showed 2VD with RCA and LAD disease. He underwent PCI with ABDON of RCA 03/2015 and staged PCI of LAD in 04/2015 with significant improvement in symptoms. 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 -Transfused this admission -Follow H/H -further work up as per PMD Acute on chronic CKD- -creatinine improved since admission, seems to have stabilized -renal following.
[2016-03-02] MEDS: CALCITRIOL 0.25 MCG CAPSULE (FP) PO SCH (11:20)
[2016-03-02] MEDS: PREGABALIN 25 MG CAPSULE PO SCH ×2 (11:20→11:21)
[2016-03-02] MEDS: ASPIRIN COATED 81 MG TABLET.EC PO SCH (11:20)
[2016-03-02] MEDS: TIOTROPIUM BROMIDE 18 MCG/INH (DEVICE W/ 5 CAPSULES) IH SCH (11:21)
[2016-03-02] MEDS: PRASUGREL HCL 10 MG TAB PO SCH (12:41)
[2016-03-02] MEDS: DULoxetine HCL 20 MG CAPSULE.DR (FP) PO SCH (12:41)
--- NOTE | 2016-03-02 16:04 | PN ---
Progress Note, Physician History of Present Illness: patient actually feels a better says he is doing well - Current Medication List Current Medications: Active Medications Acetylcysteine (Mucomyst 20 Oral / Inh Use Only*) 200 mg NEB BID [facility] Last Admin: 03/02/16 09:20 Dose: 200 mg Albuterol Sulfate (Ventolin 0.083% Nebulizer Soln -) 1 amp NEB Q4H PRN PRN Reason: SHORT OF BREATH/WHEEZING Last Admin: 02/28/16 18:26 Dose: 1 amp Albuterol Sulfate (Ventolin 0.083% Nebulizer Soln -) 1 amp NEB QIDR [facility] Last Admin: 03/02/16 11:30 Dose: 1 amp Arformoterol Tartrate (Brovana (Restricted To Pulmonology/Resp) -) 1 amp NEB BID [facility] Last Admin: 03/02/16 09:20 Dose: 1 amp Aspirin (Ecotrin -) 81 mg PO DAILY [facility] Last Admin: 03/02/16 11:20 Dose: 81 mg Calcitriol (Rocaltrol -) 0.25 mcg PO DAILY [facility] Last Admin: 03/02/16 11:20 Dose: 0.25 mcg Calcium Acetate (Phoslo -) 667 mg PO TIDCM [facility] Last Admin: 03/02/16 12:41 Dose: 667 mg Duloxetine HCl (Cymbalta -) 20 mg PO DAILY [facility] Last Admin: 03/02/16 12:41 Dose: 20 mg Furosemide (Lasix -) 80 mg PO BID@0600,1400 [facility] Last Admin: 03/02/16 14:47 Dose: 80 mg Guaifenesin (Diabetic Tussin Dm -) 5 ml PO Q4H PRN PRN Reason: COUGH Last Admin: 02/27/16 10:43 Dose: 5 ml Hydralazine HCl (Apresoline -) 50 mg PO TID [facility] Last Admin: 03/02/16 14:47 Dose: 50 mg Methylprednisolone Sodium Succinate (Solu-Medrol -) 60 mg IVPB Q8H-IV [facility] Last Admin: 03/02/16 11:21 Dose: 60 mg Prasugrel (Effient -) 10 mg PO DAILY [facility] Last Admin: 03/02/16 12:41 Dose: 10 mg Pregabalin (Lyrica -) 25 mg PO DAILY [facility] Last Admin: 03/02/16 11:20 Dose: 25 mg Tiotropium [place] (Spiriva -) 1 puff IH DAILY [facility] Last Admin: 03/02/16 11:21 Dose: 1 inh - Objective Vital Signs: Vital Signs Temperature 98.1 F 03/02/16 14:35 Pulse Rate 88 03/02/16 14:35 Respiratory Rate 23 03/02/16 14:35 Blood Pressure 148/76 03/02/16 14:35 O2 Sat by Pulse Oximetry (%) 93 L 03/02/16 09:20 Constitutional: Yes: No Distress, Calm Cardiovascular: Yes: Regular Rate and Rhythm Respiratory: Yes: Regular, CTA Bilaterally Gastrointestinal: Yes: Normal Bowel Sounds, Soft Musculoskeletal: Yes: Other Extremities: Yes: Other Neurological: Yes: Alert, Oriented Psychiatric: Yes: Alert Labs: CBC, BMP 03/02/16 06:30 03/02/16 06:30 INR, PTT INR 1.12 (0.82-1.09) 02/18/16 13:00 Assessment/Plan 75 year-old man with a PMH of HTN, PVD, COPD, CKD (baseline Cr 1.9), nephrolithiasis, and chronic LE lymphedema. Admitted in acute renal failure. Acute on chronic renal failure Hyperkalemia Sepsis s Hypertension Peripheral vascular disease Hypercarbic respiratory failure COPD bilateral cellulitis of the legs plan stable off of abxx incentive igor chest physio close monitoring resp physio diuresis
--- NOTE | 2016-03-02 16:30 | PN ---
Progress Note (short form) - Note Progress Note: Subjective: feels better today . last night had another episode of severe SOB with minimal exertion Objective: Vital Signs: Last Vital Signs Temp Pulse Resp BP Pulse Ox 98.1 F 88 23 148/76 93 L 03/02/16 14:35 03/02/16 14:35 03/02/16 14:35 03/02/16 14:35 03/02/16 09:20 Physical Exam: AAOx3 , NAD CV: RRR Lungs: good air entry , decreased breath sounds at bases. no wheezes heard today ext; thick skin , non pitting edema , green dry exudate posteriorly on legs with resolving erythema , no increased warmth . Laboratory Results - last 24 hr 03/02/16 03/02/16 06:30 06:30 WBC 5.4 RBC 2.91 L Hgb 7.6 L Hct 22.7 L MCV 78.3 L MCHC 33.4 RDW 18.2 H Plt Count 232 MPV 7.7 Neutrophils % 89.8 H D Lymphocytes % 8.4 D Monocytes % 1.7 L D Eosinophils % 0.0 D Basophils % 0.1 Sodium 143 Potassium 4.3 Chloride 104 Carbon Dioxide 28 Anion Gap 11 BUN 116 H* Creatinine 3.9 H Random Glucose 153 H D Calcium 7.8 L Phosphorus 5.6 H Magnesium 2.4 Current Medications Generic Name Dose Route Start Last Admin Trade Name Freq PRN Reason Stop Dose Admin Acetylcysteine 200 mg 02/26/16 10:00 03/02/16 09:20 Mucomyst 20 Oral / Inh Use Only* NEB 200 mg BID [facility] Administration Albuterol Sulfate 1 amp 02/28/16 17:13 02/28/16 18:26 Ventolin 0.083% Nebulizer Soln - NEB 1 amp Q4H PRN Administration SHORT OF BREATH/WHEEZING Albuterol Sulfate 1 amp 02/28/16 18:45 03/02/16 11:30 Ventolin 0.083% Nebulizer Soln - NEB 1 amp QIDR [facility] Administration Arformoterol Tartrate 1 amp 02/23/16 22:00 03/02/16 09:20 Brovana (Restricted To Pulmonology/Resp) - NEB 1 amp BID [facility] Administration Aspirin 81 mg 02/24/16 10:00 03/02/16 11:20 Ecotrin - PO 81 mg DAILY [facility] Administration Calcitriol 0.25 mcg 02/24/16 12:45 03/02/16 11:20 Rocaltrol - PO 0.25 mcg DAILY [facility] Administration Calcium Acetate 667 mg 02/23/16 17:30 03/02/16 12:41 Phoslo - PO 667 mg TIDCM [facility] Administration Duloxetine HCl 20 mg 02/24/16 10:00 03/02/16 12:41 Cymbalta - PO 20 mg DAILY [facility] Administration Furosemide 80 mg 02/28/16 14:00 03/02/16 14:47 Lasix - PO 80 mg BID@0600,1400 [facility] Administration Guaifenesin 5 ml 02/22/16 22:29 02/27/16 10:43 Diabetic Tussin Dm - PO 5 ml Q4H PRN Administration COUGH Hydralazine HCl 50 mg 02/28/16 22:00 03/02/16 14:47 Apresoline - PO 50 mg TID [facility] Administration Methylprednisolone Sodium Succinate 60 mg 03/01/16 20:30 03/02/16 11:21 Solu-Medrol - IVPB 60 mg Q8H-IV [facility] Administration Prasugrel 10 mg 02/24/16 10:00 03/02/16 12:41 Effient - PO 10 mg DAILY [facility] Administration Pregabalin 25 mg 03/02/16 11:15 03/02/16 11:20 Lyrica - PO 25 mg DAILY [facility] Administration Tiotropium [place] 1 puff 02/22/16 11:15 03/02/16 11:21 Spiriva - IH 1 inh DAILY [facility] Administration ASSESSMENT AND PLAN: 75 year-old man with a PMHx of HTN, PVD, COPD, CKD (baseline Cr 1.8), nephrolithiasis, D CHF , CAD s/p stenting in 03/23 and chronic LE lymphedema. presented with SOB and was found to have acute hypercapnic resp failure with acute renal failure . 1- acute hypercapnic resp failure due to COPD exa and diastolic heart failure. - cont lasix . pt is imporved - cont breathing treatment - cont steroids . 2- cellultis of LE :reoslved . off abx now 3- KARLOS on CKD: off HD . improving Cr 4- microcytic anemia . - no evidence of iron def ( ACD ) -s/p transfusion 5- uncontrolled HTN: cont HZN TID . BP improved 6- HLOC Visit type - Emergency Visit Emergency Visit: Yes ED Registration Date: 02/18/16 Care time: The patient presented to the Emergency Department on the above date and was hospitalized for further evaluation of their emergent condition. - New Patient This patient is new to me today: No - Critical Care Critical Care patient: No
[2016-03-03] MEDS: methylPREDNISolone NA SUCC 40 MG/1 ML VIAL IVPB SCH ×3 (02:13→17:44)
[2016-03-03] MEDS: FUROSEMIDE 40 MG TABLET (FP) PO SCH (06:14)
[2016-03-03] MEDS: hydrALAZINE HCL 50 MG TABLET (FP) PO SCH ×3 (06:15→21:21)
[2016-03-03] MEDS: ALBUTEROL SO4 0.083% IH SOL 2.5 MG/3 ML VIAL.NEB. NEB SCH ×4 (06:54→17:15)
[2016-03-03 08:08] LABS: BASOPHIL 0.1 % (0-2.0); MCH 25.8 pg (25.7-33.7); MCHC 33.1 g/dl (32.0-35.9); MEAN CELL VOLUME 78.1 fl (80-96); MEAN PLT VOLUME 7.5 fl (7.5-11.1); NEUTROPHILS 88.5 % (42.8-82.8); PLATELET COUNT 275 K/MM3 (134-434); RDW 18.3 % (11.9-15.9); WHITE BLOOD COUNT 8.7 K/mm3 (4.0-10.0)
[2016-03-03] MEDS: CALCIUM ACETATE 667 MG CAPSULE (FP) PO SCH ×3 (08:45→17:44)
[2016-03-03 08:46] LABS: CALCIUM 8.4 mg/dL (8.5-10.1); CREATININE 3.8 mg/dL (0.7-1.3); MAGNESIUM 2.5 mg/dL (1.8-2.4); PHOSPHOROUS 5.6 mg/dL (2.5-4.9)
[2016-03-03] MEDS: ACETYLCYSTEINE 20% 200MG/ML 4 ML VIAL *FOR ORAL / INH USE ONLY NEB SCH ×2 (10:15→22:17)
[2016-03-03] MEDS: ARFORMOTEROL TARTRATE 15 MCG/2 ML VIAL NEB SCH ×2 (10:15→22:17)
--- NOTE | 2016-03-03 10:40 | PN ---
Progress Note (short form) - Note Progress Note: Renal Follow up for KARLOS Pt seen and examined at the bedside complains of right sided chest wall pain that is intermittent no sob, fever, chills No N/V/D Legs remain swollen no weight recorded the past few days Vital Signs Temperature 97.6 F 03/03/16 06:00 Pulse Rate 87 03/03/16 10:14 Respiratory Rate 18 03/03/16 06:00 Blood Pressure 166/79 03/03/16 06:00 O2 Sat by Pulse Oximetry (%) 96 03/03/16 10:14 Intake & Output 02/29/16 03/01/16 03/02/16 03/03/16 23:59 23:59 23:59 23:59 Intake Total 1500 1140 1420 110 Output Total 2300 1200 1200 Balance -800 -60 220 110 Gen: NAD CVS: RRR No M/R Lungs: dec BS throughout the lung rey Abd: Soft NT + Mild distension Ext: > 3+ LE Lymph edema, no cyanosis or clubbing CBC, BMP 03/03/16 06:30 03/03/16 06:30 Laboratory Tests 03/02/16 03/03/16 06:30 06:30 Calcium 7.8 L 8.4 L Phosphorus 5.6 H 5.6 H Magnesium 2.4 2.5 H Current Medications Acetylcysteine (Mucomyst 20 Oral / Inh Use Only*) 200 mg NEB BID [facility] Last Admin: 03/03/16 10:15 Dose: 200 mg Albuterol Sulfate (Ventolin 0.083% Nebulizer Soln -) 1 amp NEB Q4H PRN PRN Reason: SHORT OF BREATH/WHEEZING Last Admin: 02/28/16 18:26 Dose: 1 amp Albuterol Sulfate (Ventolin 0.083% Nebulizer Soln -) 1 amp NEB QIDR [facility] Last Admin: 03/03/16 06:54 Dose: 1 amp Arformoterol Tartrate (Brovana (Restricted To Pulmonology/Resp) -) 1 amp NEB BID [facility] Last Admin: 03/03/16 10:15 Dose: 1 amp Aspirin (Ecotrin -) 81 mg PO DAILY [facility] Last Admin: 03/02/16 11:20 Dose: 81 mg Calcitriol (Rocaltrol -) 0.25 mcg PO DAILY [facility] Last Admin: 03/02/16 11:20 Dose: 0.25 mcg Calcium Acetate (Phoslo -) 667 mg PO TIDCM [facility] Last Admin: 03/03/16 08:45 Dose: 667 mg Duloxetine HCl (Cymbalta -) 20 mg PO DAILY [facility] Last Admin: 03/02/16 12:41 Dose: 20 mg Furosemide (Lasix Injection -) 80 mg IVPB BID@0600,1400 [facility] Guaifenesin (Diabetic Tussin Dm -) 5 ml PO Q4H PRN PRN Reason: COUGH Last Admin: 02/27/16 10:43 Dose: 5 ml Hydralazine HCl (Apresoline -) 50 mg PO TID [facility] Last Admin: 03/03/16 06:15 Dose: 50 mg Methylprednisolone Sodium Succinate (Solu-Medrol -) 60 mg IVPB Q8H-IV [facility] Last Admin: 03/03/16 02:13 Dose: 60 mg Prasugrel (Effient -) 10 mg PO DAILY [facility] Last Admin: 03/02/16 12:41 Dose: 10 mg Pregabalin (Lyrica -) 25 mg PO DAILY [facility] Last Admin: 03/02/16 11:20 Dose: 25 mg Tiotropium [place] (Spiriva -) 1 puff IH DAILY [facility] Last Admin: 03/02/16 11:21 Dose: 1 inh A/P 75 year old Gentleman with PMhx of CKD Stage 3 (baseline Cr 1.9), Hx of Nephrolithiasis, Hypertension, COPD, CHF, PVD, Chronic LE lymph edema who was sent into the ED from wound care for increased lethargy and decreased urination for several days with KARLOS with BUN/Cr of 115/7.2 and K of 6.5 #Acute Renal Failure on CKD Renal function with modest improvement High but but likely secondary to steroids and possible GI bleed in addition to decreased renal function no evidence of uremia #Fluid overload/LE edema/Pleural effusions Legs remain very swollen and pt with effusions no weights recorded the last few days Change Lasix to 80mg IV BID If responsive can consider changing to torsemide in 2-3 days Check weights daily #Hypocalcemia/Hyperphosphatemia/Secondary Hyperparatyrodism Corrected ca is within normal limits now Continue Phoslo for now continue Calcitriol for now #Microcytic Anemia s/p prbc transfusion s/p procrit on the , next dose tomorrow check stool occult blood Melvin Johnson DO
[2016-03-03] MEDS ORDERED: PT OWN MED DRAWER 7, Y5N ONE (11:01)
[2016-03-03] MEDS: CALCITRIOL 0.25 MCG CAPSULE (FP) PO SCH (11:03)
[2016-03-03] MEDS: ASPIRIN COATED 81 MG TABLET.EC PO SCH (11:03)
[2016-03-03] MEDS: DULoxetine HCL 20 MG CAPSULE.DR (FP) PO SCH (11:05)
[2016-03-03] MEDS: PREGABALIN 25 MG CAPSULE PO SCH (11:05)
[2016-03-03] MEDS: PRASUGREL HCL 10 MG TAB PO SCH (11:06)
--- NOTE | 2016-03-03 11:11 | PN ---
Teaching Attending Note Name of Resident: Freddie Strickland ATTENDING PHYSICIAN STATEMENT I saw and evaluated the patient. I reviewed the resident's note and discussed the case with the resident. I agree with the resident's findings and plan as documented. SUBJECTIVE: Sitting on the chair comfortably. Denies any shortness of breath, no nausea or vomiting. OBJECTIVE: Vital Signs Temperature 97.6 F 03/03/16 06:00 Pulse Rate 87 03/03/16 10:14 Respiratory Rate 18 03/03/16 06:00 Blood Pressure 166/79 03/03/16 06:00 O2 Sat by Pulse Oximetry (%) 96 03/03/16 10:14 GENERAL: awake, alert, and fully oriented, in moderate distress. Sitting on the side of the bed. HEAD: Normal with no signs of trauma. EYES: conjunctiva clear. ENT: moist mucous membranes. NECK: Trachea midline, full range of motion. LUNGS: Diminished breath sounds. Did not appreciate crackles or wheezing. HEART: Distant heart sounds. Regular rate and rhythm, S1, S2 without murmur, rub or gallop. ABDOMEN: Soft, obese, NT,ND, normoactive bowel sounds, no guarding, no rebound, no hepatosplenomegaly, no masses. EXTREMITIES: 2+ pulses, warm, well-perfused, B/L cellulitic changes, B/L LE 3+ pitting edema and alvarado crusted chronic lesions. NEUROLOGICAL: Normal speech, gait not observed. PSYCH: Normal mood, normal affect CBCD WBC 8.7 K/mm3 (4.0-10.0) D 03/03/16 06:30 RBC 3.07 M/mm3 (4.00-5.60) L 03/03/16 06:30 Hgb 7.9 GM/dL (11.7-16.9) L 03/03/16 06:30 Hct 24.0 % (35.4-49) L 03/03/16 06:30 MCV 78.1 fl (80-96) L 03/03/16 06:30 MCHC 33.1 g/dl (32.0-35.9) 03/03/16 06:30 RDW 18.3 % (11.9-15.9) H 03/03/16 06:30 Plt Count 275 K/MM3 (134-434) 03/03/16 06:30 MPV 7.5 fl (7.5-11.1) 03/03/16 06:30 CMP Sodium 141 mmol/L (136-145) 03/03/16 06:30 Potassium 4.2 mmol/L (3.5-5.1) 03/03/16 06:30 Chloride 103 mmol/L (98-107) 03/03/16 06:30 Carbon Dioxide 25 mmol/L (21-32) 03/03/16 06:30 Anion Gap 13 (8-16) 03/03/16 06:30 BUN 123 mg/dL (7-18) H* 03/03/16 06:30 Creatinine 3.8 mg/dL (0.7-1.3) H 03/03/16 06:30 Creat Clearance w eGFR 12.28 (>60) 02/24/16 06:15 Random Glucose 150 mg/dL (74-106) H 03/03/16 06:30 Calcium 8.4 mg/dL (8.5-10.1) L 03/03/16 06:30 Total Bilirubin 0.5 mg/dL (0.2-1.0) D 02/24/16 06:15 AST 23 U/L (15-37) 02/24/16 06:15 ALT 41 U/L (12-78) 02/24/16 06:15 Alkaline Phosphatase 67 U/L (45-117) 02/24/16 06:15 Total Protein 5.8 g/dl (6.4-8.2) L 02/24/16 06:15 Albumin 2.8 g/dl (3.4-5.0) L 02/24/16 06:15 CARDIAC ENZYMES Creatine Kinase 76 IU/L (39-308) 02/19/16 05:30 Troponin I < 0.02 ng/ml (0.015-0.045) 02/19/16 21:50 Current Medications Generic Name Dose Route Start Last Admin Trade Name Freq PRN Reason Stop Dose Admin Acetylcysteine 200 mg 02/26/16 10:00 03/03/16 10:15 Mucomyst 20 Oral / Inh Use Only* NEB 200 mg BID [facility] Administration Albuterol Sulfate 1 amp 02/28/16 17:13 02/28/16 18:26 Ventolin 0.083% Nebulizer Soln - NEB 1 amp Q4H PRN Administration SHORT OF BREATH/WHEEZING Albuterol Sulfate 1 amp 02/28/16 18:45 03/03/16 06:54 Ventolin 0.083% Nebulizer Soln - NEB 1 amp QIDR [facility] Administration Arformoterol Tartrate 1 amp 02/23/16 22:00 03/03/16 10:15 Brovana (Restricted To Pulmonology/Resp) - NEB 1 amp BID [facility] Administration Aspirin 81 mg 02/24/16 10:00 03/02/16 11:20 Ecotrin - PO 81 mg DAILY [facility] Administration Calcitriol 0.25 mcg 02/24/16 12:45 03/02/16 11:20 Rocaltrol - PO 0.25 mcg DAILY [facility] Administration Calcium Acetate 667 mg 02/23/16 17:30 03/03/16 08:45 Phoslo - PO 667 mg TIDCM [facility] Administration Duloxetine HCl 20 mg 02/24/16 10:00 03/02/16 12:41 Cymbalta - PO 20 mg DAILY [facility] Administration Epoetin Keith 20,000 unit 03/04/16 09:00 Procrit - SQ 03/04/16 09:01 ONCE ONE Furosemide 80 mg 03/03/16 14:00 Lasix Injection - IVPB BID@0600,1400 [facility] Guaifenesin 5 ml 02/22/16 22:29 02/27/16 10:43 Diabetic Tussin Dm - PO 5 ml Q4H PRN Administration COUGH Hydralazine HCl 50 mg 02/28/16 22:00 03/03/16 06:15 Apresoline - PO 50 mg TID [facility] Administration Methylprednisolone Sodium Succinate 60 mg 03/01/16 20:30 03/03/16 02:13 Solu-Medrol - IVPB 60 mg Q8H-IV [facility] Administration Prasugrel 10 mg 02/24/16 10:00 03/02/16 12:41 Effient - PO 10 mg DAILY [facility] Administration Pregabalin 25 mg 03/02/16 11:15 03/02/16 11:20 Lyrica - PO 25 mg DAILY [facility] Administration Tiotropium [place] 1 puff 02/22/16 11:15 03/02/16 11:21 Spiriva - IH 1 inh DAILY [facility] Administration Medication Instructions Recorded Acetaminophen W/ Codeine #3 1 tab PO Q6H PRN 02/18/16 [Tylenol # 3 -] Albuterol 0.083% Nebulizer [place] 1 amp NEB ASDIR PRN 02/18/16 [Ventolin 0.083% Nebulizer Soln -] Aspirin [Ecotrin] 81 mg PO DAILY 02/18/16 Duloxetine HCl 20 mg PO DAILY 02/18/16 Furosemide 20 mg PO HS 02/18/16 Furosemide 40 mg PO DAILY 02/18/16 Hydralazine HCl [Apresoline -] 50 mg PO HS 02/18/16 Prasugrel HCl [Effient] 10 mg PO DAILY 02/18/16 Prednisone 5 mg PO DAILY 02/18/16 Pregabalin [Lyrica] 25 mg PO DAILY 02/18/16 ASSESSMENT AND PLAN: 75 year-old man with a PMHx of HTN, PVD, COPD, CKD (baseline Cr 1.8), nephrolithiasis, D CHF , CAD s/p stenting in 03/23 and chronic LE lymphedema. presented with SOB and was found to have acute hypercapnic resp failure with acute renal failure . # Acute hypercapnic resp failure due to severe COPD exacerbation with diastolic heart failure On IV LAsix BID and monitor I/O, will change Prednisone to Solu MEdrol 60mg IV q8h x 2 days then will reduce ; Pulm and card. on the case. # Acute cellultis of LE : of abxs now # KARLOS on CKD: unclear etiology ,no M spike on SPEP ? ATN due to volume depletion. off HD now # microcytic anemia . due to CKD ; no evidence of iron def ( ACD ) s/p one unit of RBC # HTN Uncontrolled patient is on Parvez.DM will dicontinue since might elevate the BP , cont Hydralazine. #cough will place him on Robitussin Ac 5cc q6h prn not ready for dc yet.
[2016-03-03] MEDS ORDERED: guaiFENesin/CODEINE 5 ML UNIT-DOSE CUPS PO PRN (11:12)
--- NOTE | 2016-03-03 12:08 | EKG ---
Test Reason : Blood Pressure : / mmHG Vent. Rate : 084 BPM Atrial Rate : 082 BPM P-R Int : 000 ms QRS Dur : 164 ms QT Int : 416 ms P-R-T Axes : 000 038 028 degrees QTc Int : 491 ms ATRIAL FIBRILLATION RIGHT BUNDLE BRANCH BLOCK ABNORMAL ECG WHEN COMPARED WITH ECG OF 19-FEB-2016 11:10, ATRIAL FIBRILLATION HAS REPLACED SINUS RHYTHM Confirmed by GLENN TAY MD ([id number] on 03/03/2016 12:07:55 PM Referred By: Overread By: GLENN TAY MD
[2016-03-03] MEDS: TIOTROPIUM BROMIDE 18 MCG/INH (DEVICE W/ 5 CAPSULES) IH SCH (12:12)
--- NOTE | 2016-03-03 12:22 | PN ---
Physical Exam: SUBJECTIVE: Patient seen and examined at bedside. States he feels the same as usual. He was not using venturi mask when he was seen and he felt like he was breathing well. He finds the mask uncomfortable. His O2 sat was checked off the venturi mask and he was saturating at 87/88%. He denies N/V/F/C, abdominal pain, SOB at rest. He has not tried walking today or moving and is unsure if he still has SOB with minimal exertion. He feels like his leg swelling is the same and hasnt worsened or improved. OBJECTIVE: Vital Signs Temperature 97.4 F L 03/03/16 09:30 Pulse Rate 87 03/03/16 10:14 Respiratory Rate 22 03/03/16 09:30 Blood Pressure 152/58 03/03/16 09:30 O2 Sat by Pulse Oximetry (%) 96 03/03/16 10:14 GENERAL: The patient is awake, alert, and fully oriented, in no acute distress. HEAD: Normal with no signs of trauma. EYES: extraocular movements intact, sclera anicteric, conjunctiva clear. No ptosis. NECK: Trachea midline, full range of motion LUNGS: Diminished breath sounds, Breath sounds equal, clear to auscultation bilaterally, no wheezes, no crackles, no accessory muscle use. HEART: Regular rate and rhythm, S1, S2 without murmur, rub or gallop. ABDOMEN: Obese, Soft, nontender, nondistended, normoactive bowel sounds, no guarding, no rebound, no hepatosplenomegaly, no masses. EXTREMITIES: warm, well-perfused, B/L cellulitic changes, B/L LE 3+ pitting edema and alvarado crusted chronic lesions. NEUROLOGICAL: Normal speech, gait not observed. PSYCH: Normal mood, normal affect. SKIN: Warm, dry, normal turgor, skin changes as noted above in extremities. Laboratory Results - last 24 hr 03/03/16 03/03/16 03/03/16 06:30 06:30 06:30 WBC 8.7 D Cancelled Corrected WBC (auto) Cancelled RBC 3.07 L Cancelled Hgb 7.9 L Cancelled Hct 24.0 L Cancelled MCV 78.1 L Cancelled MCHC 33.1 Cancelled RDW 18.3 H Cancelled Plt Count 275 Cancelled MPV 7.5 Cancelled Add Manual Diff Cancelled Neutrophils % 88.5 H Lymphocytes % 7.4 L Monocytes % 4.0 D Eosinophils % 0.0 Basophils % 0.1 Differential Comment Cancelled Platelet Estimate Cancelled Platelet Comment Cancelled Normal RBC Morphology Cancelled RBC Morphology Cancelled Sodium 141 Potassium 4.2 Chloride 103 Carbon Dioxide 25 Anion Gap 13 BUN 123 H* Creatinine 3.8 H Random Glucose 150 H Calcium 8.4 L Phosphorus 5.6 H Magnesium 2.5 H Microbiology 02/25/16 17:30 Blood - Peripheral Venous Blood Culture - Final NO GROWTH AFTER 5 DAYS INCUBATION 02/25/16 17:30 Blood - Peripheral Venous Blood Culture - Final NO GROWTH AFTER 5 DAYS INCUBATION 02/29/16 17:40 Nasopharyngeal Swab Respiratory Virus Panel - Preliminary 02/28/16 17:40 Nasopharyngeal Swab Influenza Types A,B Antigen (TONI) - Final 02/28/16 17:40 Nasopharyngeal Swab - Final 02/26/16 06:45 Urine - Urine Clean Catch Urine Culture - Final NO GROWTH OBTAINED 02/18/16 19:15 Blood - Peripheral Venous Blood Culture - Final NO GROWTH AFTER 5 DAYS INCUBATION 02/18/16 19:15 Blood - Peripheral Venous Blood Culture - Final NO GROWTH AFTER 5 DAYS INCUBATION 02/18/16 18:10 Urine - Urine Clean Catch Urine Culture - Final NO GROWTH OBTAINED Active Medications Generic Name Dose Route Start Last Admin Trade Name Freq PRN Reason Stop Dose Admin Acetylcysteine 200 mg 02/26/16 10:00 03/03/16 10:15 Mucomyst 20 Oral / Inh Use Only* NEB 200 mg BID [facility] Administration Albuterol Sulfate 1 amp 02/28/16 17:13 02/28/16 18:26 Ventolin 0.083% Nebulizer Soln - NEB 1 amp Q4H PRN Administration SHORT OF BREATH/WHEEZING Albuterol Sulfate 1 amp 02/28/16 18:45 03/03/16 06:54 Ventolin 0.083% Nebulizer Soln - NEB 1 amp QIDR [facility] Administration Arformoterol Tartrate 1 amp 02/23/16 22:00 03/03/16 10:15 Brovana (Restricted To Pulmonology/Resp) - NEB 1 amp BID [facility] Administration Aspirin 81 mg 02/24/16 10:00 03/03/16 11:03 Ecotrin - PO 81 mg DAILY [facility] Administration Calcitriol 0.25 mcg 02/24/16 12:45 11/25/16 11:03 Rocaltrol - PO 0.25 mcg DAILY [facility] Administration Calcium Acetate 667 mg 02/23/16 17:30 03/03/16 12:12 Phoslo - PO 667 mg TIDCM [facility] Administration Duloxetine HCl 20 mg 02/24/16 10:00 03/03/16 11:05 Cymbalta - PO 20 mg DAILY [facility] Administration Epoetin Keith 20,000 unit 03/04/16 09:00 Procrit - SQ 03/04/16 09:01 ONCE ONE Furosemide 80 mg 03/03/16 14:00 Lasix Injection - IVPB BID@0600,1400 [facility] Guaifenesin/Codeine Phosphate 5 ml 03/03/16 11:12 Robitussin Ac - PO TID PRN COUGH Hydralazine HCl 50 mg 02/28/16 22:00 03/03/16 06:15 Apresoline - PO 50 mg TID [facility] Administration Methylprednisolone Sodium Succinate 60 mg 03/01/16 20:30 03/03/16 11:04 Solu-Medrol - IVPB 60 mg Q8H-IV [facility] Administration Prasugrel 10 mg 02/24/16 10:00 03/03/16 11:06 Effient - PO 10 mg DAILY [facility] Administration Pregabalin 25 mg 03/02/16 11:15 03/03/16 11:05 Lyrica - PO 25 mg DAILY [facility] Administration Tiotropium [place] 1 puff 02/22/16 11:15 03/03/16 12:12 Spiriva - IH 1 inh DAILY [facility] Administration ASSESSMENT/PLAN: 75 year-old man with a PMH of HTN, PVD, COPD, CKD (baseline Cr 1.9), nephrolithiasis, and chronic LE lymphedema. Admitted for acute renal failure ( hyperkalemia) and respiratory distress. # Acute on chronic renal failure -Today BUN/Cr 123/3.8 (baseline 1.8-1.9), creatinine improving slowly off HD. -urine: output improving - 1200 ml yesterday, nothing charted today so far. -lasix changed to 80 mg IV bid # Acute COPD exacerbation with hypercapnic respiratory failure -SOB with minimal exertion -PT will walk him with 4L NC since he does not feel comfortable with venturi mask. -Bipap as needed -brovana, albuterol PRN -solumedrol 60 mg IV q8h (day 3) -will require higher O2 at home when ambulating. Currently on 2L O2 at all times at home, may require 2L at rest and more while ambulating. #SOB -diuresis now Lasix IV 80 mg BID -b/l mod pleural effusions noted on CT 4. Anemia, microcytic -Anemia of chronic disease secondary to CKD, TIBC low -Hgb 7.9 (s/p 1 unit PRBC) -Transfuse if Hgb <7. 4. Sepsis secondary to B/L lower extremity cellulitis -resolved -off abx 5. HTN -hydralazine 50 mg PO TID -stopped guaifenesin 6. CHF (diastolic) -lasix 80 mg iv bid now -Causing his LE edema most likely -will get B/L LE duplex to r/o PE 7. Hx of Depression -c/w cymbalta 8. CAD -prasugrel 10 mg PO qd 9. FEN -hypocalcemia -c/w calcitriol - f/u BMP -hyperphosphatemia - 5.6 - f/u phos -hypermagnesmia - 2.5 - f/u Mg 9. Dispo: monitor on floors. Problem List - Problems (1) Acute kidney failure Code(s): N17.9 - ACUTE KIDNEY FAILURE, UNSPECIFIED Qualifiers: Acute renal failure type: unspecified Qualified Code(s): N17.9 - Acute kidney failure, unspecified (2) COPD exacerbation Code(s): J44.1 - CHRONIC OBSTRUCTIVE PULMONARY DISEASE W (ACUTE) EXACERBATION (3) Hyperkalemia Code(s): E87.5 - HYPERKALEMIA (4) Acute and chronic respiratory failure ([id number]) Code(s): J96.20 - ACUTE AND CHR RESP FAILURE, UNSP W HYPOXIA OR HYPERCAPNIA Qualifiers: Respiratory failure complication: hypoxia and hypercapnia Qualified Code(s): J96.21 - Acute and chronic respiratory failure with hypoxia (5) Acute exacerbation of chronic obstructive pulmonary disease (COPD) Code(s): J44.1 - CHRONIC OBSTRUCTIVE PULMONARY DISEASE W (ACUTE) EXACERBATION (6) Acute on chronic diastolic (congestive) heart failure Code(s): I50.33 - ACUTE ON CHRONIC DIASTOLIC (CONGESTIVE) HEART FAILURE (7) Anxiety and depression Code(s): F41.9 - ANXIETY DISORDER, UNSPECIFIED F32.9 - MAJOR DEPRESSIVE DISORDER, SINGLE EPISODE, UNSPECIFIED (8) Cellulitis Code(s): L03.90 - CELLULITIS, UNSPECIFIED Qualifiers: Site of cellulitis of extremity: lower extremity (9) Chronic kidney disease (CKD) Code(s): N18.9 - CHRONIC KIDNEY DISEASE, UNSPECIFIED Qualifiers: Chronic kidney disease stage: unspecified stage Qualified Code(s): N18.9 - Chronic kidney disease, unspecified (10) Diastolic CHF Code(s): I50.30 - UNSPECIFIED DIASTOLIC (CONGESTIVE) HEART FAILURE (11) Hyperlipidemia Code(s): E78.5 - HYPERLIPIDEMIA, UNSPECIFIED (12) Hypertension Code(s): I10 - ESSENTIAL (PRIMARY) HYPERTENSION (13) Obesities, morbid Code(s): E66.01 - MORBID (SEVERE) OBESITY DUE TO EXCESS CALORIES Qualifiers: Obesity type: with alveolar hypoventilation Qualified Code(s): E66.2 - Morbid (severe) obesity with alveolar hypoventilation (14) Respiratory failure with hypoxia and hypercapnia Code(s): J96.91 - RESPIRATORY FAILURE, UNSPECIFIED WITH HYPOXIA J96.92 - RESPIRATORY FAILURE, UNSPECIFIED WITH HYPERCAPNIA Qualifiers: Chronicity: acute on chronic Qualified Code(s): J96.21 - Acute and chronic respiratory failure with hypoxia; J96.22 - Acute and chronic respiratory failure with hypercapnia (15) Shortness of breath Code(s): R06.02 - SHORTNESS OF BREATH Visit type - Emergency Visit Emergency Visit: Yes ED Registration Date: 02/18/16 Care time: The patient presented to the Emergency Department on the above date and was hospitalized for further evaluation of their emergent condition. - New Patient This patient is new to me today: No - Critical Care Critical Care patient: No
--- NOTE | 2016-03-03 15:07 | PN ---
Progress Note, Physician History of Present Illness: feeling sob today says worse than yesterday - Current Medication List Current Medications: Active Medications Acetylcysteine (Mucomyst 20 Oral / Inh Use Only*) 200 mg NEB BID [facility] Last Admin: 03/03/16 10:15 Dose: 200 mg Albuterol Sulfate (Ventolin 0.083% Nebulizer Soln -) 1 amp NEB Q4H PRN PRN Reason: SHORT OF BREATH/WHEEZING Last Admin: 02/28/16 18:26 Dose: 1 amp Albuterol Sulfate (Ventolin 0.083% Nebulizer Soln -) 1 amp NEB QIDR [facility] Last Admin: 03/03/16 12:55 Dose: 1 amp Arformoterol Tartrate (Brovana (Restricted To Pulmonology/Resp) -) 1 amp NEB BID [facility] Last Admin: 03/03/16 10:15 Dose: 1 amp Aspirin (Ecotrin -) 81 mg PO DAILY [facility] Last Admin: 03/03/16 11:03 Dose: 81 mg Calcitriol (Rocaltrol -) 0.25 mcg PO DAILY [facility] Last Admin: 03/03/16 11:03 Dose: 0.25 mcg Calcium Acetate (Phoslo -) 667 mg PO TIDCM [facility] Last Admin: 03/03/16 12:12 Dose: 667 mg Duloxetine HCl (Cymbalta -) 20 mg PO DAILY [facility] Last Admin: 03/03/16 11:05 Dose: 20 mg Epoetin Keith (Procrit -) 20,000 unit SQ ONCE ONE Stop: 03/04/16 09:01 Furosemide (Lasix Injection -) 80 mg IVPB BID@0600,1400 [facility] Guaifenesin/Codeine Phosphate (Robitussin Ac -) 5 ml PO TID PRN PRN Reason: COUGH Hydralazine HCl (Apresoline -) 50 mg PO TID [facility] Last Admin: 03/03/16 06:15 Dose: 50 mg Methylprednisolone Sodium Succinate (Solu-Medrol -) 60 mg IVPB Q8H-IV [facility] Last Admin: 03/03/16 11:04 Dose: 60 mg Prasugrel (Effient -) 10 mg PO DAILY [facility] Last Admin: 03/03/16 11:06 Dose: 10 mg Pregabalin (Lyrica -) 25 mg PO DAILY [facility] Last Admin: 03/03/16 11:05 Dose: 25 mg Tiotropium [place] (Spiriva -) 1 puff IH DAILY [facility] Last Admin: 03/03/16 12:12 Dose: 1 inh - Objective Vital Signs: Vital Signs Temperature 97.9 F 03/03/16 14:30 Pulse Rate 99 H 03/03/16 14:30 Respiratory Rate 22 03/03/16 14:30 Blood Pressure 155/71 03/03/16 14:30 O2 Sat by Pulse Oximetry (%) 93 L 03/03/16 13:13 Constitutional: Yes: Calm, Mild Distress Cardiovascular: Yes: Regular Rate and Rhythm Respiratory: Yes: Poor Air Entry, Other Gastrointestinal: Yes: Normal Bowel Sounds, Soft Musculoskeletal: Yes: Other Extremities: Yes: Other Edema: LLE: 2+, RLE: 2+ Neurological: Yes: Alert, Oriented Psychiatric: Yes: Alert Labs: CBC, BMP 03/03/16 06:30 03/03/16 06:30 INR, PTT INR 1.12 (0.82-1.09) 02/18/16 13:00 Assessment/Plan 75 year-old man with a PMH of HTN, PVD, COPD, CKD (baseline Cr 1.9), nephrolithiasis, and chronic LE lymphedema. Admitted in acute renal failure. Acute on chronic renal failure Hyperkalemia Sepsis s Hypertension Peripheral vascular disease Hypercarbic respiratory failure COPD bilateral cellulitis of the legs plan continue current mgmt rest as per primary incentive igor
[2016-03-03] MEDS: FUROSEMIDE 40 MG/4 ML INJECTABLE VIAL IVPB SCH (15:25)
[2016-03-04] MEDS: methylPREDNISolone NA SUCC 40 MG/1 ML VIAL IVPB SCH ×3 (01:09→18:02)
[2016-03-04] MEDS: hydrALAZINE HCL 50 MG TABLET (FP) PO SCH ×3 (05:58→22:02)
[2016-03-04] MEDS: FUROSEMIDE 40 MG/4 ML INJECTABLE VIAL IVPB SCH ×2 (05:59→14:39)
[2016-03-04] MEDS: ALBUTEROL SO4 0.083% IH SOL 2.5 MG/3 ML VIAL.NEB. NEB SCH ×4 (06:52→18:02)
[2016-03-04 07:53] LABS: MCH 26.1 pg (25.7-33.7); MCHC 33.2 g/dl (32.0-35.9); MEAN CELL VOLUME 78.7 fl (80-96); MEAN PLT VOLUME 7.2 fl (7.5-11.1); PLATELET COUNT 260 K/MM3 (134-434); RDW 18.2 % (11.9-15.9); WHITE BLOOD COUNT 8.1 K/mm3 (4.0-10.0)
[2016-03-04 08:18] LABS: CALCIUM 8.2 mg/dL (8.5-10.1); CREATININE 3.9 mg/dL (0.7-1.3); MAGNESIUM 2.5 mg/dL (1.8-2.4); PHOSPHOROUS 5.9 mg/dL (2.5-4.9)
[2016-03-04] MEDS: CALCIUM ACETATE 667 MG CAPSULE (FP) PO SCH ×3 (08:51→18:02)
[2016-03-04] MEDS ORDERED: EPOETIN ALFA 20,000 UNIT/1 ML VIAL SQ ONE (09:00)
[2016-03-04] MEDS ORDERED: PT OWN MED DRAWER 7, Y5N ONE ×2 (09:19→22:33)
[2016-03-04] MEDS: ASPIRIN COATED 81 MG TABLET.EC PO SCH (09:25)
[2016-03-04] MEDS: PREGABALIN 25 MG CAPSULE PO SCH (09:25)
[2016-03-04] MEDS: CALCITRIOL 0.25 MCG CAPSULE (FP) PO SCH (09:26)
[2016-03-04] MEDS: DULoxetine HCL 20 MG CAPSULE.DR (FP) PO SCH (09:27)
[2016-03-04] MEDS: TIOTROPIUM BROMIDE 18 MCG/INH (DEVICE W/ 5 CAPSULES) IH SCH (09:27)
[2016-03-04] MEDS: PRASUGREL HCL 10 MG TAB PO SCH (09:28)
[2016-03-04 09:29] LABS: PLATELET ESTIMATE ADEQUATE (NORMAL)
[2016-03-04 09:34] LABS: HYPOCHROMIA 2+
[2016-03-04 09:35] LABS: MICROCYTOSIS 2+
[2016-03-04] MEDS: ACETYLCYSTEINE 20% 200MG/ML 4 ML VIAL *FOR ORAL / INH USE ONLY NEB SCH ×2 (10:00→22:42)
[2016-03-04] MEDS: ARFORMOTEROL TARTRATE 15 MCG/2 ML VIAL NEB SCH ×2 (10:00→22:42)
--- NOTE | 2016-03-04 10:28 | PN ---
Progress Note, Physician - Current Medication List Current Medications: Active Medications Acetylcysteine (Mucomyst 20 Oral / Inh Use Only*) 200 mg NEB BID [facility] Last Admin: 03/03/16 22:17 Dose: 200 mg Albuterol Sulfate (Ventolin 0.083% Nebulizer Soln -) 1 amp NEB Q4H PRN PRN Reason: SHORT OF BREATH/WHEEZING Last Admin: 02/28/16 18:26 Dose: 1 amp Albuterol Sulfate (Ventolin 0.083% Nebulizer Soln -) 1 amp NEB QIDR [facility] Last Admin: 03/04/16 06:52 Dose: 1 amp Arformoterol Tartrate (Brovana (Restricted To Pulmonology/Resp) -) 1 amp NEB BID [facility] Last Admin: 03/03/16 22:17 Dose: 1 amp Aspirin (Ecotrin -) 81 mg PO DAILY [facility] Last Admin: 03/04/16 09:25 Dose: 81 mg Calcitriol (Rocaltrol -) 0.25 mcg PO DAILY [facility] Last Admin: 03/04/16 09:26 Dose: 0.25 mcg Calcium Acetate (Phoslo -) 667 mg PO TIDCM [facility] Last Admin: 03/04/16 08:51 Dose: 667 mg Duloxetine HCl (Cymbalta -) 20 mg PO DAILY [facility] Last Admin: 03/04/16 09:27 Dose: 20 mg Furosemide (Lasix Injection -) 80 mg IVPB BID@0600,1400 [facility] Last Admin: 03/04/16 05:59 Dose: 80 mg Guaifenesin/Codeine Phosphate (Robitussin Ac -) 5 ml PO TID PRN PRN Reason: COUGH Hydralazine HCl (Apresoline -) 50 mg PO TID [facility] Last Admin: 03/04/16 05:58 Dose: 50 mg Methylprednisolone Sodium Succinate (Solu-Medrol -) 60 mg IVPB Q8H-IV [facility] Last Admin: 03/04/16 09:26 Dose: 60 mg Prasugrel (Effient -) 10 mg PO DAILY [facility] Last Admin: 03/04/16 09:28 Dose: 10 mg Pregabalin (Lyrica -) 25 mg PO DAILY [facility] Last Admin: 03/04/16 09:25 Dose: 25 mg Tiotropium [place] (Spiriva -) 1 puff IH DAILY [facility] Last Admin: 03/04/16 09:27 Dose: 1 inh - Objective Vital Signs: Vital Signs Temperature 97.3 F L 03/04/16 08:55 Pulse Rate 89 03/04/16 08:55 Respiratory Rate 20 03/04/16 08:55 Blood Pressure 148/66 03/04/16 08:55 O2 Sat by Pulse Oximetry (%) 93 L 03/03/16 22:52 Eyes: Yes: WNL, Conjunctiva Clear, EOM Intact HENT: Yes: WNL, Atraumatic, Normocephalic Neck: Yes: WNL, Supple, Trachea Midline Cardiovascular: Yes: WNL, Regular Rate and Rhythm Respiratory: Yes: WNL, Regular, CTA Bilaterally Gastrointestinal: Yes: WNL, Normal Bowel Sounds Genitourinary: Yes: WNL Musculoskeletal: Yes: WNL Extremities: Yes: WNL Edema: Yes Edema: LLE: 3+, RLE: 3+ Integumentary: Yes: WNL Neurological: Yes: WNL, Alert, Oriented ...Motor Strength: WNL Psychiatric: Yes: WNL Labs: CBC, BMP 03/04/16 07:40 03/04/16 07:40 INR, PTT INR 1.12 (0.82-1.09) 02/18/16 13:00 Assessment/Plan 75 year old man with a history of HTN, COPD on home O2, Chronic combined systolic/diastolic CHF, CKD, JOY, CAD moderate LV systolic dysfunction, cardiac cath 03/2015 showed 2VD with RCA and LAD disease. He underwent PCI with ABDON of RCA 03/2015 and staged PCI of LAD in 04/2015 with significant improvement in symptoms. 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 -Transfused this admission -Follow H/H -further work up as per PMD Acute on chronic CKD- -creatinine improved since admission, seems to have stabilized -renal following.
--- NOTE | 2016-03-04 10:55 | PN ---
Progress Note, Physician - Current Medication List Current Medications: Active Medications Acetylcysteine (Mucomyst 20 Oral / Inh Use Only*) 200 mg NEB BID [facility] Last Admin: 03/03/16 22:17 Dose: 200 mg Albuterol Sulfate (Ventolin 0.083% Nebulizer Soln -) 1 amp NEB Q4H PRN PRN Reason: SHORT OF BREATH/WHEEZING Last Admin: 02/28/16 18:26 Dose: 1 amp Albuterol Sulfate (Ventolin 0.083% Nebulizer Soln -) 1 amp NEB QIDR [facility] Last Admin: 03/04/16 06:52 Dose: 1 amp Arformoterol Tartrate (Brovana (Restricted To Pulmonology/Resp) -) 1 amp NEB BID [facility] Last Admin: 03/03/16 22:17 Dose: 1 amp Aspirin (Ecotrin -) 81 mg PO DAILY [facility] Last Admin: 03/04/16 09:25 Dose: 81 mg Calcitriol (Rocaltrol -) 0.25 mcg PO DAILY [facility] Last Admin: 03/04/16 09:26 Dose: 0.25 mcg Calcium Acetate (Phoslo -) 667 mg PO TIDCM [facility] Last Admin: 03/04/16 08:51 Dose: 667 mg Duloxetine HCl (Cymbalta -) 20 mg PO DAILY [facility] Last Admin: 03/04/16 09:27 Dose: 20 mg Furosemide (Lasix Injection -) 80 mg IVPB BID@0600,1400 [facility] Last Admin: 03/04/16 05:59 Dose: 80 mg Guaifenesin/Codeine Phosphate (Robitussin Ac -) 5 ml PO TID PRN PRN Reason: COUGH Hydralazine HCl (Apresoline -) 50 mg PO TID [facility] Last Admin: 03/04/16 05:58 Dose: 50 mg Methylprednisolone Sodium Succinate (Solu-Medrol -) 60 mg IVPB Q8H-IV [facility] Last Admin: 03/04/16 09:26 Dose: 60 mg Prasugrel (Effient -) 10 mg PO DAILY [facility] Last Admin: 03/04/16 09:28 Dose: 10 mg Pregabalin (Lyrica -) 25 mg PO DAILY [facility] Last Admin: 03/04/16 09:25 Dose: 25 mg Tiotropium [place] (Spiriva -) 1 puff IH DAILY [facility] Last Admin: 03/04/16 09:27 Dose: 1 inh - Objective Vital Signs: Vital Signs Temperature 97.3 F L 03/04/16 08:55 Pulse Rate 89 03/04/16 08:55 Respiratory Rate 20 03/04/16 08:55 Blood Pressure 148/66 03/04/16 08:55 O2 Sat by Pulse Oximetry (%) 93 L 03/03/16 22:52 Eyes: Yes: WNL, Conjunctiva Clear, EOM Intact HENT: Yes: WNL, Atraumatic, Normocephalic Neck: Yes: WNL, Supple, Trachea Midline Cardiovascular: Yes: WNL, Regular Rate and Rhythm Respiratory: Yes: WNL, Regular, CTA Bilaterally Gastrointestinal: Yes: WNL, Normal Bowel Sounds Genitourinary: Yes: WNL Musculoskeletal: Yes: WNL Extremities: Yes: WNL Edema: No Integumentary: Yes: WNL Neurological: Yes: WNL, Alert, Oriented ...Motor Strength: WNL Psychiatric: Yes: WNL Labs: CBC, BMP 03/04/16 07:40 03/04/16 07:40 INR, PTT INR 1.12 (0.82-1.09) 02/18/16 13:00 Assessment/Plan 75 year old man with a history of HTN, COPD on home O2, Chronic combined systolic/diastolic CHF, CKD, JOY, CAD moderate LV systolic dysfunction, cardiac cath 03/2015 showed 2VD with RCA and LAD disease. He underwent PCI with ABDON of RCA 03/2015 and staged PCI of LAD in 04/2015 with significant improvement in symptoms. 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 -Transfused this admission -Follow H/H -further work up as per PMD Acute on chronic CKD- -creatinine improved since admission, seems to have stabilized -renal following.
--- NOTE | 2016-03-04 11:21 | PN ---
Progress Note, Physician Chief Complaint: Patient seen by his bed. Still quite short of breath. No Chest pain. Maintains good urinary out put. No diarrhea or constipation. Massive pedal edema persists. - Current Medication List Current Medications: Active Medications Acetylcysteine (Mucomyst 20 Oral / Inh Use Only*) 200 mg NEB BID [facility] Last Admin: 03/03/16 22:17 Dose: 200 mg Albuterol Sulfate (Ventolin 0.083% Nebulizer Soln -) 1 amp NEB Q4H PRN PRN Reason: SHORT OF BREATH/WHEEZING Last Admin: 02/28/16 18:26 Dose: 1 amp Albuterol Sulfate (Ventolin 0.083% Nebulizer Soln -) 1 amp NEB QIDR [facility] Last Admin: 03/04/16 06:52 Dose: 1 amp Arformoterol Tartrate (Brovana (Restricted To Pulmonology/Resp) -) 1 amp NEB BID [facility] Last Admin: 03/03/16 22:17 Dose: 1 amp Aspirin (Ecotrin -) 81 mg PO DAILY [facility] Last Admin: 03/04/16 09:25 Dose: 81 mg Calcitriol (Rocaltrol -) 0.25 mcg PO DAILY [facility] Last Admin: 03/04/16 09:26 Dose: 0.25 mcg Calcium Acetate (Phoslo -) 667 mg PO TIDCM [facility] Last Admin: 03/04/16 08:51 Dose: 667 mg Duloxetine HCl (Cymbalta -) 20 mg PO DAILY [facility] Last Admin: 03/04/16 09:27 Dose: 20 mg Furosemide (Lasix Injection -) 80 mg IVPB BID@0600,1400 [facility] Last Admin: 03/04/16 05:59 Dose: 80 mg Guaifenesin/Codeine Phosphate (Robitussin Ac -) 5 ml PO TID PRN PRN Reason: COUGH Hydralazine HCl (Apresoline -) 50 mg PO TID [facility] Last Admin: 03/04/16 05:58 Dose: 50 mg Methylprednisolone Sodium Succinate (Solu-Medrol -) 60 mg IVPB Q8H-IV [facility] Last Admin: 03/04/16 09:26 Dose: 60 mg Prasugrel (Effient -) 10 mg PO DAILY [facility] Last Admin: 03/04/16 09:28 Dose: 10 mg Pregabalin (Lyrica -) 25 mg PO DAILY [facility] Last Admin: 03/04/16 09:25 Dose: 25 mg Tiotropium [place] (Spiriva -) 1 puff IH DAILY [facility] Last Admin: 03/04/16 09:27 Dose: 1 inh - Objective Vital Signs: Vital Signs Temperature 97.3 F L 03/04/16 08:55 Pulse Rate 89 03/04/16 08:55 Respiratory Rate 20 03/04/16 08:55 Blood Pressure 148/66 03/04/16 08:55 O2 Sat by Pulse Oximetry (%) 93 L 03/03/16 22:52 Constitutional: Yes: Well Nourished, Moderate Distress Eyes: Yes: WNL HENT: Yes: WNL Neck: Yes: WNL Cardiovascular: Yes: WNL Respiratory: Yes: Diminished, Hyperresonant, On BiPap, Rhonchi Gastrointestinal: Yes: Abdomen, Obese Edema: LLE: 4+, RLE: 4+ ...Motor Strength: WNL Psychiatric: Yes: WNL Labs: CBC, BMP 03/04/16 07:40 03/04/16 07:40 INR, PTT INR 1.12 (0.82-1.09) 02/18/16 13:00 Problem List - Problems (1) Chronic kidney disease (CKD) Code(s): N18.9 - CHRONIC KIDNEY DISEASE, UNSPECIFIED Qualifiers: Chronic kidney disease stage: unspecified stage Qualified Code(s): N18.9 - Chronic kidney disease, unspecified (2) Chronic kidney disease (CKD) stage G3a/A2, moderately decreased glomerular filtration rate (GFR) between 45-59 mL/min/1.73 square meter and albuminuria creatinine ratio between 30-299 mg/g Code(s): N18.3 - CHRONIC KIDNEY DISEASE, STAGE 3 (MODERATE) Assessment/Plan Acute Kidney failure, superimposed on chronci kidney failure. The profoundly elevated Azotemia is multifactorial in etiology, to a large extent related to the high dose of Steroids, and then additionally due to the effects og the Loop diuretics. Unfortunately, these medications can not be discontinued at this time. The patient has no signs of Uremia, and therefore no specific intervention to be done at this juncture. has Persistent Anemia. Last Hgb 8 g/dL. May need PRBC transfusion if the anemia worsens. Will monitor the Renal functions closely with you. Will get Stool Occult blood.
--- NOTE | 2016-03-04 14:39 | PN ---
Progress Note (short form) - Note Progress Note: Patient is a comfortable no shortness of breath, no nausea or vomiting, no difficulty breathing. Temperature 97.3 F L 03/04/16 08:55 Pulse Rate 89 03/04/16 08:55 Respiratory Rate 20 03/04/16 08:55 Blood Pressure 148/66 03/04/16 08:55 O2 Sat by Pulse Oximetry (%) 93 L 03/03/16 22:52 GENERAL: awake, alert, and fully oriented, in no acute distress. Sitting on the side of the bed. HEAD: Normal with no signs of trauma. EYES: conjunctiva clear. ENT: moist mucous membranes. NECK: Trachea midline, full range of motion. LUNGS: Diminished breath sounds. no wheezing wheezing or crackles. HEART: Distant heart sounds. Regular rate and rhythm, S1, S2 without murmur, rub or gallop. ABDOMEN: Soft, obese, NT,ND, normoactive bowel sounds, no guarding, no rebound, no hepatosplenomegaly, no masses. EXTREMITIES: 2+ pulses, warm, well-perfused, B/L cellulitic changes, B/L LE 3+ pitting edema and alvarado crusted chronic lesions. NEUROLOGICAL: Normal speech, gait not observed. PSYCH: Normal mood, normal affect CBCD WBC 8.1 K/mm3 (4.0-10.0) 03/04/16 07:40 RBC 3.08 M/mm3 (4.00-5.60) L 03/04/16 07:40 Hgb 8.0 GM/dL (11.7-16.9) L 03/04/16 07:40 Hct 24.2 % (35.4-49) L 03/04/16 07:40 MCV 78.7 fl (80-96) L 03/04/16 07:40 MCHC 33.2 g/dl (32.0-35.9) 03/04/16 07:40 RDW 18.2 % (11.9-15.9) H 03/04/16 07:40 Plt Count 260 K/MM3 (134-434) 03/04/16 07:40 MPV 7.2 fl (7.5-11.1) L 03/04/16 07:40 CMP Sodium 144 mmol/L (136-145) 03/04/16 07:40 Potassium 4.3 mmol/L (3.5-5.1) 03/04/16 07:40 Chloride 103 mmol/L (98-107) 03/04/16 07:40 Carbon Dioxide 28 mmol/L (21-32) 03/04/16 07:40 Anion Gap 13 (8-16) 03/04/16 07:40 BUN 134 mg/dL (7-18) H* 03/04/16 07:40 Creatinine 3.9 mg/dL (0.7-1.3) H 03/04/16 07:40 Creat Clearance w eGFR 12.28 (>60) 02/24/16 06:15 Random Glucose 157 mg/dL (74-106) H 03/04/16 07:40 Calcium 8.2 mg/dL (8.5-10.1) L 03/04/16 07:40 Total Bilirubin 0.5 mg/dL (0.2-1.0) D 02/24/16 06:15 AST 23 U/L (15-37) 02/24/16 06:15 ALT 41 U/L (12-78) 02/24/16 06:15 Alkaline Phosphatase 67 U/L (45-117) 02/24/16 06:15 Total Protein 5.8 g/dl (6.4-8.2) L 02/24/16 06:15 Albumin 2.8 g/dl (3.4-5.0) L 02/24/16 06:15 CARDIAC ENZYMES Creatine Kinase 76 IU/L (39-308) 02/19/16 05:30 Troponin I < 0.02 ng/ml (0.015-0.045) 02/19/16 21:50 Current Medications Generic Name Dose Route Start Last Admin Trade Name Freq PRN Reason Stop Dose Admin Acetylcysteine 200 mg 02/26/16 10:00 03/04/16 10:00 Mucomyst 20 Oral / Inh Use Only* NEB 200 mg BID LESLEE Administration Albuterol Sulfate 1 amp 02/28/16 17:13 02/28/16 18:26 Ventolin 0.083% Nebulizer Soln - NEB 1 amp Q4H PRN Administration SHORT OF BREATH/WHEEZING Albuterol Sulfate 1 amp 02/28/16 18:45 03/04/16 11:58 Ventolin 0.083% Nebulizer Soln - NEB 1 amp QIDR LESLEE Administration Arformoterol Tartrate 1 amp 02/23/16 22:00 03/04/16 10:00 Brovana (Restricted To Pulmonology/Resp) - NEB 1 amp BID LESLEE Administration Aspirin 81 mg 02/24/16 10:00 03/04/16 09:25 Ecotrin - PO 81 mg DAILY LESLEE Administration Calcitriol 0.25 mcg 02/24/16 12:45 03/04/16 09:26 Rocaltrol - PO 0.25 mcg DAILY LESLEE Administration Calcium Acetate 667 mg 02/23/16 17:30 03/04/16 12:17 Phoslo - PO 667 mg TIDCM LESLEE Administration Duloxetine HCl 20 mg 02/24/16 10:00 03/04/16 09:27 Cymbalta - PO 20 mg DAILY LESLEE Administration Furosemide 80 mg 03/03/16 14:00 03/04/16 05:59 Lasix Injection - IVPB 80 mg BID@0600,1400 LESLEE Administration Guaifenesin/Codeine Phosphate 5 ml 03/03/16 11:12 Robitussin Ac - PO TID PRN COUGH Hydralazine HCl 50 mg 02/28/16 22:00 03/04/16 05:58 Apresoline - PO 50 mg TID LESLEE Administration Methylprednisolone Sodium Succinate 60 mg 03/01/16 20:30 03/04/16 09:26 Solu-Medrol - IVPB 60 mg Q8H-IV LESLEE Administration Prasugrel 10 mg 02/24/16 10:00 03/04/16 09:28 Effient - PO 10 mg DAILY LESLEE Administration Pregabalin 25 mg 03/02/16 11:15 03/04/16 09:25 Lyrica - PO 25 mg DAILY LESLEE Administration Tiotropium [place] 1 puff 02/22/16 11:15 03/04/16 09:27 Spiriva - IH 1 inh DAILY LESLEE Administration Medication Instructions Recorded Acetaminophen W/ Codeine #3 1 tab PO Q6H PRN 02/18/16 [Tylenol # 3 -] Albuterol 0.083% Nebulizer Soni 1 amp NEB ASDIR PRN 02/18/16 [Ventolin 0.083% Nebulizer Soln -] Aspirin [Ecotrin] 81 mg PO DAILY 02/18/16 Duloxetine HCl 20 mg PO DAILY 02/18/16 Furosemide 20 mg PO HS 02/18/16 Furosemide 40 mg PO DAILY 02/18/16 Hydralazine HCl [Apresoline -] 50 mg PO HS 02/18/16 Prasugrel HCl [Effient] 10 mg PO DAILY 02/18/16 Prednisone 5 mg PO DAILY 02/18/16 Pregabalin [Lyrica] 25 mg PO DAILY 02/18/16 SSESSMENT AND PLAN: 75 year-old man with a PMHx of HTN, PVD, COPD, CKD (baseline Cr 1.8), nephrolithiasis, D CHF , CAD s/p stenting in 03/23 and chronic LE lymphedema. presented with SOB and was found to have acute hypercapnic resp failure with acute renal failure . # Acute hypercapnic resp failure due to severe COPD exacerbation with diastolic heart failure improving on IV LAsix 80mg BID continue . monitor I/O, will change Solu MEdrol to 60mg IV q8h x 2 days then will reduce ; Pulm and card. on the case. # Acute cellultis of LE : improving, off IV antibiotics # KARLOS on CKD: unclear etiology ,no M spike on SPEP ; possible due to volume depletion. off HD now # microcytic anemia . due to CKD ; no evidence of iron def ( ACD ) s/p one unit of RBC # HTN Uncontrolled patient is on Parvez.DM will dicontinue since might elevate the BP , cont Hydralazine. #cough will place him on Robitussin Ac 5cc q6h prn DVT Px: Effient tx Visit type - Emergency Visit Emergency Visit: Yes ED Registration Date: 02/18/16 Care time: The patient presented to the Emergency Department on the above date and was hospitalized for further evaluation of their emergent condition. - New Patient This patient is new to me today: No - Critical Care Critical Care patient: No - Discharge Referral Referred to [facility] Med P.C.: No
--- NOTE | 2016-03-04 21:18 | PN ---
Progress Note, Physician History of Present Illness: feels better today says legs also feel speech and language assistant - Current Medication List Current Medications: Active Medications Acetylcysteine (Mucomyst 20 Oral / Inh Use Only*) 200 mg NEB BID [facility] Last Admin: 03/04/16 10:00 Dose: 200 mg Arformoterol Tartrate (Brovana (Restricted To Pulmonology/Resp) -) 1 amp NEB BID [facility] Last Admin: 03/04/16 10:00 Dose: 1 amp Aspirin (Ecotrin -) 81 mg PO DAILY [facility] Last Admin: 03/04/16 09:25 Dose: 81 mg Calcitriol (Rocaltrol -) 0.25 mcg PO DAILY [facility] Last Admin: 03/04/16 09:26 Dose: 0.25 mcg Calcium Acetate (Phoslo -) 667 mg PO TIDCM [facility] Last Admin: 03/04/16 18:02 Dose: 667 mg Duloxetine HCl (Cymbalta -) 20 mg PO DAILY [facility] Last Admin: 03/04/16 09:27 Dose: 20 mg Furosemide (Lasix Injection -) 80 mg IVPB BID@0600,1400 [facility] Last Admin: 03/04/16 14:39 Dose: 80 mg Guaifenesin/Codeine Phosphate (Robitussin Ac -) 5 ml PO TID PRN PRN Reason: COUGH Hydralazine HCl (Apresoline -) 50 mg PO TID [facility] Last Admin: 03/04/16 14:38 Dose: 50 mg Methylprednisolone Sodium Succinate (Solu-Medrol -) 40 mg IVPB Q8H-IV [facility] Last Admin: 03/04/16 18:02 Dose: 40 mg Prasugrel (Effient -) 10 mg PO DAILY [facility] Last Admin: 03/04/16 09:28 Dose: 10 mg Pregabalin (Lyrica -) 25 mg PO DAILY [facility] Last Admin: 03/04/16 09:25 Dose: 25 mg Tiotropium [place] (Spiriva -) 1 puff IH DAILY [facility] Last Admin: 03/04/16 09:27 Dose: 1 inh - Objective Vital Signs: Vital Signs Temperature 97.3 F L 03/04/16 17:55 Pulse Rate 95 H 03/04/16 17:55 Respiratory Rate 16 03/04/16 17:55 Blood Pressure 140/65 03/04/16 17:55 O2 Sat by Pulse Oximetry (%) 92 L 03/04/16 09:00 Constitutional: Yes: No Distress, Calm Cardiovascular: Yes: Regular Rate and Rhythm Respiratory: Yes: Regular, Poor Air Entry, Other Gastrointestinal: Yes: Normal Bowel Sounds, Soft Musculoskeletal: Yes: Other Extremities: Yes: Other Edema: LLE: 2+, RLE: 2+ Wound/Incision: Yes: Other Neurological: Yes: Alert, Oriented Psychiatric: Yes: Alert, Oriented Labs: CBC, BMP 03/04/16 07:40 03/04/16 07:40 INR, PTT INR 1.12 (0.82-1.09) 02/18/16 13:00 Assessment/Plan 75 year-old man with a PMH of HTN, PVD, COPD, CKD (baseline Cr 1.9), nephrolithiasis, and chronic LE lymphedema. Admitted in acute renal failure. Acute on chronic renal failure Hyperkalemia Sepsis s Hypertension Peripheral vascular disease Hypercarbic respiratory failure COPD bilateral cellulitis of the legs plan continue current mgmt rest as per primary incentive igor
[2016-03-05] MEDS: methylPREDNISolone NA SUCC 40 MG/1 ML VIAL IVPB SCH ×3 (02:25→17:21)
[2016-03-05] MEDS: hydrALAZINE HCL 50 MG TABLET (FP) PO SCH ×3 (05:52→21:26)
[2016-03-05] MEDS: FUROSEMIDE 40 MG/4 ML INJECTABLE VIAL IVPB SCH ×2 (05:56→14:32)
[2016-03-05 08:23] LABS: ALBUMIN 3.2 g/dl (3.4-5.0); BILIRUBIN,TOTAL 0.4 mg/dL (0.2-1.0); CALCIUM 8.2 mg/dL (8.5-10.1); CREATININE 3.7 mg/dL (0.7-1.3)
[2016-03-05] MEDS: CALCIUM ACETATE 667 MG CAPSULE (FP) PO SCH ×3 (08:55→17:21)
[2016-03-05] MEDS ORDERED: PT OWN MED DRAWER 7, Y5N ONE ×2 (09:29→09:38)
[2016-03-05] MEDS: ASPIRIN COATED 81 MG TABLET.EC PO SCH (09:31)
[2016-03-05] MEDS: PREGABALIN 25 MG CAPSULE PO SCH (09:31)
[2016-03-05] MEDS: CALCITRIOL 0.25 MCG CAPSULE (FP) PO SCH (09:32)
[2016-03-05] MEDS: DULoxetine HCL 20 MG CAPSULE.DR (FP) PO SCH (09:33)
[2016-03-05] MEDS: TIOTROPIUM BROMIDE 18 MCG/INH (DEVICE W/ 5 CAPSULES) IH SCH (09:34)
--- NOTE | 2016-03-05 09:38 | PN ---
Progress Note, Physician - Current Medication List Current Medications: Active Medications Acetylcysteine (Mucomyst 20 Oral / Inh Use Only*) 200 mg NEB BID [facility] Last Admin: 03/04/16 22:42 Dose: 200 mg Arformoterol Tartrate (Brovana (Restricted To Pulmonology/Resp) -) 1 amp NEB BID [facility] Last Admin: 03/04/16 22:42 Dose: 1 amp Aspirin (Ecotrin -) 81 mg PO DAILY [facility] Last Admin: 03/04/16 09:25 Dose: 81 mg Calcitriol (Rocaltrol -) 0.25 mcg PO DAILY [facility] Last Admin: 03/04/16 09:26 Dose: 0.25 mcg Calcium Acetate (Phoslo -) 667 mg PO TIDCM [facility] Last Admin: 03/05/16 08:55 Dose: 667 mg Duloxetine HCl (Cymbalta -) 20 mg PO DAILY [facility] Last Admin: 03/04/16 09:27 Dose: 20 mg Furosemide (Lasix Injection -) 80 mg IVPB BID@0600,1400 [facility] Last Admin: 03/05/16 05:56 Dose: 80 mg Guaifenesin/Codeine Phosphate (Robitussin Ac -) 5 ml PO TID PRN PRN Reason: COUGH Hydralazine HCl (Apresoline -) 50 mg PO TID [facility] Last Admin: 03/05/16 05:52 Dose: 50 mg Methylprednisolone Sodium Succinate (Solu-Medrol -) 40 mg IVPB Q8H-IV [facility] Last Admin: 03/05/16 02:25 Dose: 40 mg Prasugrel (Effient -) 10 mg PO DAILY [facility] Last Admin: 03/04/16 09:28 Dose: 10 mg Pregabalin (Lyrica -) 25 mg PO DAILY [facility] Last Admin: 03/04/16 09:25 Dose: 25 mg Tiotropium [place] (Spiriva -) 1 puff IH DAILY [facility] Last Admin: 03/04/16 09:27 Dose: 1 inh - Objective Vital Signs: Vital Signs Temperature 97.8 F 03/04/16 22:00 Pulse Rate 95 H 03/04/16 22:00 Respiratory Rate 21 03/04/16 22:00 Blood Pressure 161/55 03/04/16 22:00 O2 Sat by Pulse Oximetry (%) 93 L 03/04/16 21:00 Eyes: Yes: WNL, Conjunctiva Clear, EOM Intact HENT: Yes: WNL, Atraumatic, Normocephalic Neck: Yes: WNL, Supple, Trachea Midline Cardiovascular: Yes: WNL, Regular Rate and Rhythm Respiratory: Yes: WNL, Regular, CTA Bilaterally Gastrointestinal: Yes: WNL, Normal Bowel Sounds Genitourinary: Yes: WNL Musculoskeletal: Yes: WNL Extremities: Yes: WNL Edema: Yes Edema: LLE: 3+, RLE: 3+ Integumentary: Yes: WNL Neurological: Yes: WNL, Alert, Oriented ...Motor Strength: WNL Psychiatric: Yes: WNL Labs: CBC, BMP 03/04/16 07:40 03/05/16 06:08 INR, PTT INR 1.12 (0.82-1.09) 02/18/16 13:00 Assessment/Plan 75 year old man with a history of HTN, COPD on home O2, Chronic combined systolic/diastolic CHF, CKD, JOY, CAD moderate LV systolic dysfunction, cardiac cath 03/2015 showed 2VD with RCA and LAD disease. He underwent PCI with ABDON of RCA 03/2015 and staged PCI of LAD in 04/2015 with significant improvement in symptoms. 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 -Transfused this admission -Follow H/H -further work up as per PMD Acute on chronic CKD- -creatinine improved since admission, seems to have stabilized -renal following.
[2016-03-05] MEDS: PRASUGREL HCL 10 MG TAB PO SCH (10:05)
[2016-03-05] MEDS: ARFORMOTEROL TARTRATE 15 MCG/2 ML VIAL NEB SCH ×2 (10:55→22:00)
[2016-03-05] MEDS: ACETYLCYSTEINE 20% 200MG/ML 4 ML VIAL *FOR ORAL / INH USE ONLY NEB SCH ×2 (10:55→22:00)
[2016-03-05 11:34] LABS: BASOPHIL 0.1 % (0-2.0); MCH 25.6 pg (25.7-33.7); MCHC 32.2 g/dl (32.0-35.9); MEAN CELL VOLUME 79.6 fl (80-96); MEAN PLT VOLUME 7.6 fl (7.5-11.1); NEUTROPHILS 86.5 % (42.8-82.8); PLATELET COUNT 253 K/MM3 (134-434); RDW 19.2 % (11.9-15.9); WHITE BLOOD COUNT 6.8 K/mm3 (4.0-10.0)
--- NOTE | 2016-03-05 12:25 | PN ---
Progress Note, Physician History of Present Illness: patient feeling better no complaints says breathing better no complaints overnight - Current Medication List Current Medications: Active Medications Acetylcysteine (Mucomyst 20 Oral / Inh Use Only*) 200 mg NEB BID [facility] Last Admin: 03/05/16 10:55 Dose: 200 mg Arformoterol Tartrate (Brovana (Restricted To Pulmonology/Resp) -) 1 amp NEB BID [facility] Last Admin: 03/05/16 10:55 Dose: 1 amp Aspirin (Ecotrin -) 81 mg PO DAILY [facility] Last Admin: 03/05/16 09:31 Dose: 81 mg Calcitriol (Rocaltrol -) 0.25 mcg PO DAILY [facility] Last Admin: 03/05/16 09:32 Dose: 0.25 mcg Calcium Acetate (Phoslo -) 667 mg PO TIDCM [facility] Last Admin: 03/05/16 12:07 Dose: 667 mg Duloxetine HCl (Cymbalta -) 20 mg PO DAILY [facility] Last Admin: 03/05/16 09:33 Dose: 20 mg Furosemide (Lasix Injection -) 80 mg IVPB BID@0600,1400 [facility] Last Admin: 03/05/16 05:56 Dose: 80 mg Guaifenesin/Codeine Phosphate (Robitussin Ac -) 5 ml PO TID PRN PRN Reason: COUGH Hydralazine HCl (Apresoline -) 50 mg PO TID [facility] Last Admin: 03/05/16 05:52 Dose: 50 mg Methylprednisolone Sodium Succinate (Solu-Medrol -) 40 mg IVPB Q8H-IV [facility] Last Admin: 03/05/16 09:31 Dose: 40 mg Prasugrel (Effient -) 10 mg PO DAILY [facility] Last Admin: 03/05/16 10:05 Dose: 10 mg Pregabalin (Lyrica -) 25 mg PO DAILY [facility] Last Admin: 03/05/16 09:31 Dose: 25 mg Tiotropium [place] (Spiriva -) 1 puff IH DAILY [facility] Last Admin: 03/05/16 09:34 Dose: 1 inh - Objective Vital Signs: Vital Signs Temperature 97.6 F 03/05/16 10:42 Pulse Rate 87 03/05/16 10:42 Respiratory Rate 20 03/05/16 10:42 Blood Pressure 166/75 03/05/16 10:42 O2 Sat by Pulse Oximetry (%) 93 L 03/04/16 21:00 Constitutional: Yes: No Distress, Calm HENT: Yes: Atraumatic Cardiovascular: Yes: Regular Rate and Rhythm Respiratory: Yes: Regular, CTA Bilaterally Gastrointestinal: Yes: Normal Bowel Sounds, Soft Musculoskeletal: Yes: WNL Extremities: Yes: WNL Neurological: Yes: Alert, Oriented Psychiatric: Yes: Alert Labs: CBC, BMP 03/05/16 11:20 03/05/16 06:08 INR, PTT INR 1.12 (0.82-1.09) 02/18/16 13:00 Assessment/Plan 75 year-old man with a PMH of HTN, PVD, COPD, CKD (baseline Cr 1.9), nephrolithiasis, and chronic LE lymphedema. Admitted in acute renal failure. Acute on chronic renal failure Hyperkalemia Sepsis s Hypertension Peripheral vascular disease Hypercarbic respiratory failure COPD bilateral cellulitis of the legs plan continue current mgmt rest as per primary incentive igor
--- NOTE | 2016-03-05 14:09 | PN ---
Progress Note (short form) - Note Progress Note: Patient is feeling better with no new complains. Vital Signs Temperature 97.6 F 03/05/16 10:42 Pulse Rate 87 03/05/16 10:42 Respiratory Rate 20 03/05/16 10:42 Blood Pressure 166/75 03/05/16 10:42 O2 Sat by Pulse Oximetry (%) 95 03/05/16 10:00 GENERAL: awake, alert, and fully oriented, in no acute distress. Sitting on the side of the bed. HEAD: Normal with no signs of trauma. EYES: conjunctiva clear. ENT: moist mucous membranes. NECK: Trachea midline, full range of motion. LUNGS: Diminished breath sounds. no wheezing wheezing or crackles. HEART: Distant heart sounds. Regular rate and rhythm, S1, S2 without murmur, rub or gallop. ABDOMEN: Soft, obese, NT,ND, normoactive bowel sounds, no guarding, no rebound, no hepatosplenomegaly, no masses appreciated. EXTREMITIES: 2+ pulses, warm, well-perfused, B/L cellulitic changes, B/L LE 3+ pitting edema and alvarado crusted chronic lesions. NEUROLOGICAL: Normal speech, gait not observed. PSYCH: Normal mood, normal affect CBCD WBC 6.8 K/mm3 (4.0-10.0) 03/05/16 11:20 RBC 3.13 M/mm3 (4.00-5.60) L 03/05/16 11:20 Hgb 8.0 GM/dL (11.7-16.9) L 03/05/16 11:20 Hct 24.9 % (35.4-49) L 03/05/16 11:20 MCV 79.6 fl (80-96) L 03/05/16 11:20 MCHC 32.2 g/dl (32.0-35.9) 03/05/16 11:20 RDW 19.2 % (11.9-15.9) H 03/05/16 11:20 Plt Count 253 K/MM3 (134-434) 03/05/16 11:20 MPV 7.6 fl (7.5-11.1) 03/05/16 11:20 CMP Sodium 142 mmol/L (136-145) 03/05/16 06:08 Potassium 4.2 mmol/L (3.5-5.1) 03/05/16 06:08 Chloride 101 mmol/L (98-107) 03/05/16 06:08 Carbon Dioxide 27 mmol/L (21-32) 03/05/16 06:08 Anion Gap 14 (8-16) 03/05/16 06:08 BUN 135 mg/dL (7-18) H* 03/05/16 06:08 Creatinine 3.7 mg/dL (0.7-1.3) H 03/05/16 06:08 Creat Clearance w eGFR 16.18 (>60) 03/05/16 06:08 Random Glucose 161 mg/dL (74-106) H 03/05/16 06:08 Calcium 8.2 mg/dL (8.5-10.1) L 03/05/16 06:08 Total Bilirubin 0.4 mg/dL (0.2-1.0) 03/05/16 06:08 AST 18 U/L (15-37) D 03/05/16 06:08 ALT 35 U/L (12-78) 03/05/16 06:08 Alkaline Phosphatase 56 U/L (45-117) 03/05/16 06:08 Total Protein 6.0 g/dl (6.4-8.2) L 03/05/16 06:08 Albumin 3.2 g/dl (3.4-5.0) L 03/05/16 06:08 CARDIAC ENZYMES Creatine Kinase 76 IU/L (39-308) 02/19/16 05:30 Troponin I < 0.02 ng/ml (0.015-0.045) 02/19/16 21:50 Current Medications Generic Name Dose Route Start Last Admin Trade Name Freq PRN Reason Stop Dose Admin Acetylcysteine 200 mg 02/26/16 10:00 03/05/16 10:55 Mucomyst 20 Oral / Inh Use Only* NEB 200 mg BID LESLEE Administration Arformoterol Tartrate 1 amp 02/23/16 22:00 03/05/16 10:55 Brovana (Restricted To Pulmonology/Resp) - NEB 1 amp BID LESLEE Administration Aspirin 81 mg 02/24/16 10:00 03/05/16 09:31 Ecotrin - PO 81 mg DAILY LESLEE Administration Calcitriol 0.25 mcg 02/24/16 12:45 03/05/16 09:32 Rocaltrol - PO 0.25 mcg DAILY LESLEE Administration Calcium Acetate 667 mg 02/23/16 17:30 03/05/16 12:07 Phoslo - PO 667 mg TIDCM LESLEE Administration Duloxetine HCl 20 mg 02/24/16 10:00 03/05/16 09:33 Cymbalta - PO 20 mg DAILY LESLEE Administration Furosemide 80 mg 03/03/16 14:00 03/05/16 05:56 Lasix Injection - IVPB 80 mg BID@0600,1400 LESLEE Administration Guaifenesin/Codeine Phosphate 5 ml 03/03/16 11:12 Robitussin Ac - PO TID PRN COUGH Hydralazine HCl 50 mg 02/28/16 22:00 03/05/16 05:52 Apresoline - PO 50 mg TID LESLEE Administration Methylprednisolone Sodium Succinate 40 mg 03/04/16 18:00 03/05/16 09:31 Solu-Medrol - IVPB 40 mg Q8H-IV LESLEE Administration Prasugrel 10 mg 02/24/16 10:00 03/05/16 10:05 Effient - PO 10 mg DAILY LESLEE Administration Pregabalin 25 mg 03/02/16 11:15 03/05/16 09:31 Lyrica - PO 25 mg DAILY LESLEE Administration Tiotropium [place] 1 puff 02/22/16 11:15 03/05/16 09:34 Spiriva - IH 1 inh DAILY LESLEE Administration Medication Instructions Recorded Acetaminophen W/ Codeine #3 1 tab PO Q6H PRN 02/18/16 [Tylenol # 3 -] Albuterol 0.083% Nebulizer Soni 1 amp NEB ASDIR PRN 02/18/16 [Ventolin 0.083% Nebulizer Soln -] Aspirin [Ecotrin] 81 mg PO DAILY 02/18/16 Duloxetine HCl 20 mg PO DAILY 02/18/16 Furosemide 20 mg PO HS 02/18/16 Furosemide 40 mg PO DAILY 02/18/16 Hydralazine HCl [Apresoline -] 50 mg PO HS 02/18/16 Prasugrel HCl [Effient] 10 mg PO DAILY 02/18/16 Prednisone 5 mg PO DAILY 02/18/16 Pregabalin [Lyrica] 25 mg PO DAILY 02/18/16 ASSESSMENT AND PLAN: 75 year-old man with a PMHx of HTN, PVD, COPD, CKD (baseline Cr 1.8), nephrolithiasis, D CHF , CAD s/p stenting in 03/23 and chronic LE lymphedema. presented with SOB and was found to have acute hypercapnic resp failure with acute renal failure . # Acute hypercapnic resp failure due to severe COPD exacerbation with diastolic heart failure improving on IV LAsix 80mg BID continue for now, monitor I/O, Also IV Solumedrol changed to 40mg IV q8h from 60mg IV. Robitussin AC for cough. # Acute cellultis of LE : resolved off IV antibiotic # KARLOS on CKD: of unclear etiology off HD since Kideny function is improving and patient continues to make urine # microcytic anemia . due to CKD ; no evidence of iron def ( ACD ) s/p one unit of RBC # HTN Uncontrolled cont Hydralazine/lasix . #cough will place him on Robitussin Ac 5cc q6h prn Dvt Px: Effient Visit type - Emergency Visit Emergency Visit: Yes ED Registration Date: 02/18/16 Care time: The patient presented to the Emergency Department on the above date and was hospitalized for further evaluation of their emergent condition. - New Patient This patient is new to me today: No - Critical Care Critical Care patient: No - Discharge Referral Referred to [facility] Med P.C[facility] No
[2016-03-05] MEDS ORDERED: ALBUTEROL SO4 0.083% IH SOL 2.5 MG/3 ML VIAL.NEB. NEB ONE (16:13)
--- NOTE | 2016-03-05 17:18 | PN ---
Progress Note, Physician Chief Complaint: Patient seen by his bed. by his bed. Still quite short of breath. No Chest pain. Maintains good urinary out put. No diarrhea or constipation. Massive pedal edema persists. - Current Medication List Current Medications: Active Medications Acetylcysteine (Mucomyst 20 Oral / Inh Use Only*) 200 mg NEB BID [facility] Last Admin: 03/05/16 10:55 Dose: 200 mg Arformoterol Tartrate (Brovana (Restricted To Pulmonology/Resp) -) 1 amp NEB BID [facility] Last Admin: 03/05/16 10:55 Dose: 1 amp Aspirin (Ecotrin -) 81 mg PO DAILY [facility] Last Admin: 03/05/16 09:31 Dose: 81 mg Calcitriol (Rocaltrol -) 0.25 mcg PO DAILY [facility] Last Admin: 03/05/16 09:32 Dose: 0.25 mcg Calcium Acetate (Phoslo -) 667 mg PO TIDCM [facility] Last Admin: 03/05/16 12:07 Dose: 667 mg Duloxetine HCl (Cymbalta -) 20 mg PO DAILY [facility] Last Admin: 03/05/16 09:33 Dose: 20 mg Furosemide (Lasix Injection -) 80 mg IVPB BID@0600,1400 [facility] Last Admin: 03/05/16 14:32 Dose: 80 mg Guaifenesin/Codeine Phosphate (Robitussin Ac -) 5 ml PO TID PRN PRN Reason: COUGH Hydralazine HCl (Apresoline -) 50 mg PO TID [facility] Last Admin: 03/05/16 14:31 Dose: 50 mg Methylprednisolone Sodium Succinate (Solu-Medrol -) 40 mg IVPB Q8H-IV [facility] Last Admin: 03/05/16 09:31 Dose: 40 mg Prasugrel (Effient -) 10 mg PO DAILY [facility] Last Admin: 03/05/16 10:05 Dose: 10 mg Pregabalin (Lyrica -) 25 mg PO DAILY [facility] Last Admin: 03/05/16 09:31 Dose: 25 mg Tiotropium [place] (Spiriva -) 1 puff IH DAILY [facility] Last Admin: 03/05/16 09:34 Dose: 1 inh - Objective Vital Signs: Vital Signs Temperature 97.9 F 03/05/16 14:04 Pulse Rate 93 H 03/05/16 14:04 Respiratory Rate 24 03/05/16 14:04 Blood Pressure 154/80 03/05/16 14:04 O2 Sat by Pulse Oximetry (%) 95 03/05/16 10:00 Constitutional: Yes: Well Nourished, Anxious Neck: Yes: WNL Cardiovascular: Yes: WNL, S1, S2 Respiratory: Yes: Diminished, Dullness, On Nasal O2 Gastrointestinal: Yes: Normal Bowel Sounds, Abdomen, Obese Musculoskeletal: Yes: Back Pain, Joint Stiffness Peripheral Pulses: Left Femoral: 4+, Right Femoral: 4+ Neurological: Yes: Alert, Oriented ...Motor Strength: WNL Psychiatric: Yes: Alert, Oriented Labs: CBC, BMP 03/05/16 11:20 03/05/16 06:08 INR, PTT INR 1.12 (0.82-1.09) 02/18/16 13:00 Problem List - Problems (1) Chronic kidney disease (CKD) Code(s): N18.9 - CHRONIC KIDNEY DISEASE, UNSPECIFIED Qualifiers: Chronic kidney disease stage: unspecified stage Qualified Code(s): N18.9 - Chronic kidney disease, unspecified (2) Chronic kidney disease (CKD) stage G3a/A2, moderately decreased glomerular filtration rate (GFR) between 45-59 mL/min/1.73 square meter and albuminuria creatinine ratio between 30-299 mg/g Code(s): N18.3 - CHRONIC KIDNEY DISEASE, STAGE 3 (MODERATE) (3) COPD exacerbation Code(s): J44.1 - CHRONIC OBSTRUCTIVE PULMONARY DISEASE W (ACUTE) EXACERBATION (4) Acute and chronic respiratory failure ([id number]) Code(s): J96.20 - ACUTE AND CHR RESP FAILURE, UNSP W HYPOXIA OR HYPERCAPNIA Qualifiers: Respiratory failure complication: hypoxia and hypercapnia Qualified Code(s): J96.21 - Acute and chronic respiratory failure with hypoxia (5) Cellulitis Code(s): L03.90 - CELLULITIS, UNSPECIFIED Qualifiers: Site of cellulitis of extremity: lower extremity (6) Anxiety and depression Code(s): F41.9 - ANXIETY DISORDER, UNSPECIFIED F32.9 - MAJOR DEPRESSIVE DISORDER, SINGLE EPISODE, UNSPECIFIED (7) Arteriosclerotic heart disease (ASHD) Code(s): I25.10 - ATHSCL HEART DISEASE OF [place] CORONARY ARTERY W/O ANG PCTRS (8) COPD (chronic obstructive pulmonary disease) Code(s): J44.9 - CHRONIC OBSTRUCTIVE PULMONARY DISEASE, UNSPECIFIED (9) Chronic combined systolic and diastolic CHF, NYHA class 4 Code(s): I50.42 - CHRONIC COMBINED SYSTOLIC AND DIASTOLIC HRT FAIL (10) Diabetes Code(s): E11.9 - TYPE 2 DIABETES MELLITUS WITHOUT COMPLICATIONS Qualifiers: Diabetes mellitus type: type 2 Diabetes mellitus complication status: with kidney complications Diabetes mellitus complication detail: with chronic kidney disease (11) Diastolic heart failure Code(s): I50.30 - UNSPECIFIED DIASTOLIC (CONGESTIVE) HEART FAILURE Assessment/Plan Acute Kidney failure, superimposed on chronci kidney failure. The profoundly elevated Azotemia is multifactorial in etiology, to a large extent related to the high dose of Steroids, and then additionally due to the effects of the Loop diuretics. Unfortunately, these medications can not be discontinued at this time. The patient has no signs of Uremia, and therefore no specific intervention to be done at this juncture. Has Persistent Anemia. May need PRBC transfusion if the anemia worsens. Will monitor the Renal functions closely with you. Will get Stool Occult blood. thank you. Will follow up with you. Shi Hernandez MD
[2016-03-06] MEDS: methylPREDNISolone NA SUCC 40 MG/1 ML VIAL IVPB SCH ×3 (01:38→17:20)
[2016-03-06] MEDS: FUROSEMIDE 40 MG/4 ML INJECTABLE VIAL IVPB SCH ×2 (05:43→14:16)
[2016-03-06] MEDS: hydrALAZINE HCL 50 MG TABLET (FP) PO SCH ×3 (05:43→22:30)
[2016-03-06] MEDS: ALBUTEROL SO4 0.083% IH SOL 2.5 MG/3 ML VIAL.NEB. NEB SCH ×2 (07:03→17:01)
[2016-03-06] MEDS ORDERED: PT OWN MED DRAWER 7, Y5N ONE ×2 (09:12→09:53)
[2016-03-06] MEDS: CALCIUM ACETATE 667 MG CAPSULE (FP) PO SCH ×3 (09:21→17:10)
[2016-03-06] MEDS: DULoxetine HCL 20 MG CAPSULE.DR (FP) PO SCH (09:21)
[2016-03-06] MEDS: PREGABALIN 25 MG CAPSULE PO SCH (09:22)
[2016-03-06] MEDS: ASPIRIN COATED 81 MG TABLET.EC PO SCH (09:23)
[2016-03-06 09:25] LABS: ALBUMIN 3.3 g/dl (3.4-5.0); BILIRUBIN,TOTAL 0.7 mg/dL (0.2-1.0); CALCIUM 8.3 mg/dL (8.5-10.1); CREATININE 3.6 mg/dL (0.7-1.3); TOT PROT 6.2 g/dl (6.4-8.2)
--- NOTE | 2016-03-06 09:54 | PN ---
Progress Note, Physician History of Present Illness: Pt alert and oriented sitting inchair. NAD but still complains dyspnea - Current Medication List Current Medications: Active Medications Acetylcysteine (Mucomyst 20 Oral / Inh Use Only*) 200 mg NEB BID [facility] Last Admin: 03/05/16 22:00 Dose: 200 mg Arformoterol Tartrate (Brovana (Restricted To Pulmonology/Resp) -) 1 amp NEB BID [facility] Last Admin: 03/05/16 22:00 Dose: 1 amp Aspirin (Ecotrin -) 81 mg PO DAILY [facility] Last Admin: 03/06/16 09:23 Dose: 81 mg Calcitriol (Rocaltrol -) 0.25 mcg PO DAILY [facility] Last Admin: 03/05/16 09:32 Dose: 0.25 mcg Calcium Acetate (Phoslo -) 667 mg PO TIDCM [facility] Last Admin: 03/06/16 09:21 Dose: 667 mg Duloxetine HCl (Cymbalta -) 20 mg PO DAILY [facility] Last Admin: 03/06/16 09:21 Dose: 20 mg Furosemide (Lasix Injection -) 80 mg IVPB BID@0600,1400 [facility] Last Admin: 03/06/16 05:43 Dose: 80 mg Guaifenesin/Codeine Phosphate (Robitussin Ac -) 5 ml PO TID PRN PRN Reason: COUGH Hydralazine HCl (Apresoline -) 50 mg PO TID [facility] Last Admin: 03/06/16 05:43 Dose: 50 mg Methylprednisolone Sodium Succinate (Solu-Medrol -) 40 mg IVPB Q8H-IV [facility] Last Admin: 03/06/16 09:21 Dose: 40 mg Prasugrel (Effient -) 10 mg PO DAILY [facility] Last Admin: 03/05/16 10:05 Dose: 10 mg Pregabalin (Lyrica -) 25 mg PO DAILY [facility] Last Admin: 03/06/16 09:22 Dose: 25 mg Tiotropium [place] (Spiriva -) 1 puff IH DAILY [facility] Last Admin: 03/05/16 09:34 Dose: 1 inh - Objective Vital Signs: Vital Signs Temperature 98.2 F 03/06/16 06:00 Pulse Rate 82 03/06/16 06:00 Respiratory Rate 22 03/06/16 06:00 Blood Pressure 162/80 03/06/16 06:00 O2 Sat by Pulse Oximetry (%) 92 L 03/05/16 21:00 Constitutional: Yes: Calm Eyes: No: Sclera Icterus HENT: Yes: Atraumatic, Normocephalic Neck: Yes: Supple, Trachea Midline Cardiovascular: Yes: Regular Rate and Rhythm. No: JVD Respiratory: Yes: Wheezes (bilateral) Gastrointestinal: Yes: Soft. No: Tenderness Extremities: Yes: Other (dry skin and stasis changes; lymphedema) Edema: LLE: 4+, RLE: 4+ Neurological: Yes: Alert, Oriented Labs: CBC, BMP 03/05/16 11:20 03/06/16 07:30 INR, PTT INR 1.12 (0.82-1.09) 02/18/16 13:00 - ....Imaging Chest X-ray: Report Reviewed, Image Reviewed (bibasilar changes unchanged: effusions/atelectasis) Problem List - Problems (1) COPD exacerbation Code(s): J44.1 - CHRONIC OBSTRUCTIVE PULMONARY DISEASE W (ACUTE) EXACERBATION (2) Acute and chronic respiratory failure ([id number]) Code(s): J96.20 - ACUTE AND CHR RESP FAILURE, UNSP W HYPOXIA OR HYPERCAPNIA Qualifiers: Respiratory failure complication: hypoxia and hypercapnia Qualified Code(s): J96.21 - Acute and chronic respiratory failure with hypoxia (3) Acute kidney failure Code(s): N17.9 - ACUTE KIDNEY FAILURE, UNSPECIFIED Qualifiers: Acute renal failure type: unspecified Qualified Code(s): N17.9 - Acute kidney failure, unspecified (4) Chronic kidney disease (CKD) Code(s): N18.9 - CHRONIC KIDNEY DISEASE, UNSPECIFIED Qualifiers: Chronic kidney disease stage: unspecified stage Qualified Code(s): N18.9 - Chronic kidney disease, unspecified (5) Cellulitis Code(s): L03.90 - CELLULITIS, UNSPECIFIED Qualifiers: Site of cellulitis of extremity: lower extremity (6) Hyperkalemia Code(s): E87.5 - HYPERKALEMIA (7) Arteriosclerotic heart disease (ASHD) Code(s): I25.10 - ATHSCL HEART DISEASE OF [place] CORONARY ARTERY W/O ANG PCTRS (8) Obesities, morbid Code(s): E66.01 - MORBID (SEVERE) OBESITY DUE TO EXCESS CALORIES Qualifiers: Obesity type: with alveolar hypoventilation Qualified Code(s): E66.2 - Morbid (severe) obesity with alveolar hypoventilation Assessment/Plan Anemia: COPD Acute on chronic hypercapneic respiratory failure-has not needed to use BiPAP last few days CAD; S/P stents; no chest pain or palpitations. CHF/fluid overload remains a large contributing cause for his dyspne. Acute Renal Failure Chronic Renal Insufficiency: currently Creatinine is 3.6, BUN 133, Hgb 8.7, K 4.1- renal function gradually returning to his baseline of Creatinine 1.8 Plan: diuretic continued fluid restriction Steroid taper in progress inhaled bronchodilator NIPPV prn antibiotic per I.D. repeat CXR (done)
[2016-03-06] MEDS: ACETYLCYSTEINE 20% 200MG/ML 4 ML VIAL *FOR ORAL / INH USE ONLY NEB SCH ×2 (10:05→22:57)
[2016-03-06] MEDS: ARFORMOTEROL TARTRATE 15 MCG/2 ML VIAL NEB SCH ×2 (10:05→22:57)
[2016-03-06] MEDS: CALCITRIOL 0.25 MCG CAPSULE (FP) PO SCH (10:09)
[2016-03-06] MEDS: PRASUGREL HCL 10 MG TAB PO SCH (11:55)
[2016-03-06] MEDS: TIOTROPIUM BROMIDE 18 MCG/INH (DEVICE W/ 5 CAPSULES) IH SCH (11:55)
--- NOTE | 2016-03-06 12:50 | PN ---
Progress Note, Physician History of Present Illness: seen and examined today in nad. states he is still sob, states he is urinating a lot but also admits to drinking a lot of fluids because he is thirsty - Current Medication List Current Medications: Active Medications Acetylcysteine (Mucomyst 20 Oral / Inh Use Only*) 200 mg NEB BID [facility] Last Admin: 03/05/16 22:00 Dose: 200 mg Arformoterol Tartrate (Brovana (Restricted To Pulmonology/Resp) -) 1 amp NEB BID [facility] Last Admin: 03/05/16 22:00 Dose: 1 amp Aspirin (Ecotrin -) 81 mg PO DAILY [facility] Last Admin: 03/06/16 09:23 Dose: 81 mg Calcitriol (Rocaltrol -) 0.25 mcg PO DAILY [facility] Last Admin: 03/06/16 10:09 Dose: 0.25 mcg Calcium Acetate (Phoslo -) 667 mg PO TIDCM [facility] Last Admin: 03/06/16 11:54 Dose: 667 mg Duloxetine HCl (Cymbalta -) 20 mg PO DAILY [facility] Last Admin: 03/06/16 09:21 Dose: 20 mg Furosemide (Lasix Injection -) 80 mg IVPB BID@0600,1400 [facility] Last Admin: 03/06/16 05:43 Dose: 80 mg Hydralazine HCl (Apresoline -) 50 mg PO TID [facility] Last Admin: 03/06/16 05:43 Dose: 50 mg Methylprednisolone Sodium Succinate (Solu-Medrol -) 40 mg IVPB Q8H-IV [facility] Last Admin: 03/06/16 09:21 Dose: 40 mg Prasugrel (Effient -) 10 mg PO DAILY [facility] Last Admin: 03/06/16 11:55 Dose: 10 mg Pregabalin (Lyrica -) 25 mg PO DAILY [facility] Last Admin: 03/06/16 09:22 Dose: 25 mg Tiotropium [place] (Spiriva -) 1 puff IH DAILY [facility] Last Admin: 03/06/16 11:55 Dose: 1 inh - Objective Vital Signs: Vital Signs Temperature 98.2 F 03/06/16 06:00 Pulse Rate 84 03/06/16 10:31 Respiratory Rate 22 03/06/16 06:00 Blood Pressure 162/80 03/06/16 06:00 O2 Sat by Pulse Oximetry (%) 95 03/06/16 10:31 Constitutional: Yes: No Distress, Calm, Obese Eyes: Yes: Conjunctiva Clear, EOM Intact, PERRL HENT: Yes: WNL, Atraumatic, Normocephalic Neck: Yes: WNL, Supple, Trachea Midline Cardiovascular: Yes: Regular Rate and Rhythm, S1, S2. No: Bradycardia, Tachycardia, Pulse Irregular, Bruit, JVD, Gallop, Murmur, Rub, S3, Varicosities Respiratory: Yes: Regular, Diminished, On Nasal O2, Rales. No: Rhonchi, Wheezes Gastrointestinal: Yes: WNL, Normal Bowel Sounds, Soft. No: Distention, Tenderness Musculoskeletal: Yes: Muscle Weakness Edema: Yes Edema: LLE: 3+, RLE: 3+ Peripheral Pulses WNL: Yes Peripheral Pulses: Left Doralis Pedis: 2+, Right Dorsalis Pedis: 2+ Integumentary: Yes: Venous Stasis Changes Neurological: Yes: Alert, Oriented, Cran Nerves II-XII Intact Psychiatric: Yes: Alert, Oriented Labs: CBC, BMP 03/05/16 11:20 03/06/16 07:30 INR, PTT INR 1.12 (0.82-1.09) 02/18/16 13:00 - ....Imaging Chest X-ray: Report Reviewed, Image Reviewed EKG: Report Reviewed, Image Reviewed Other: Report Reviewed, Image Reviewed Assessment/Plan 75 year old man with a history of HTN, COPD on home O2, Chronic combined systolic/diastolic CHF, CKD, JOY, CAD moderate LV systolic dysfunction, cardiac cath 03/2015 showed 2VD with RCA and LAD disease. He underwent PCI with ABDON of RCA 03/2015 and staged PCI of LAD in 04/2015 with significant improvement in symptoms. He has been feeling well since then, now admitted with cellulitis, sepsis, TARYN on CKD and sob Chronic diastolic CHF NYHA class IV, LV systolic function normalized post PCI -still volume overloaded -pt reports drinking a lot of fluids daily, despite a significant amount of urination he is likely not much net negative -he agrees to cutting down significantly on his po fluid intake including apple juice, tea, water, and milk -cont lasix 80mg po bid for now -monitor I/Os -monitor BUN/Creat, electrolytes, keep k=4, Mg=2 -not on bblocker due to severe COPD -not on PIPER-I currently due to fluctuating renal function -echo showed normal LV systolic function, no sig valvular abnl CAD-PCI with ABDON of RCA 03/2015 and staged PCI of LAD in 04/2015 -echo showed normal LV systolic function, no sig valvular abnl -cont ASA and effient -cont lipitor -not on bblocker due to severe COPD Anemia- guaiac negative. -Transfused this admission -Follow H/H -further work up as per PMD Acute on chronic CKD- -creatinine improved since admission, seems to have stabilized -renal following.
--- NOTE | 2016-03-06 14:41 | PN ---
Progress Note, Physician History of Present Illness: patient sob comfortable sitting in chair - Current Medication List Current Medications: Active Medications Acetylcysteine (Mucomyst 20 Oral / Inh Use Only*) 200 mg NEB BID [facility] Last Admin: 03/06/16 10:05 Dose: 200 mg Arformoterol Tartrate (Brovana (Restricted To Pulmonology/Resp) -) 1 amp NEB BID [facility] Last Admin: 03/06/16 10:05 Dose: 1 amp Aspirin (Ecotrin -) 81 mg PO DAILY [facility] Last Admin: 03/06/16 09:23 Dose: 81 mg Calcitriol (Rocaltrol -) 0.25 mcg PO DAILY [facility] Last Admin: 03/06/16 10:09 Dose: 0.25 mcg Calcium Acetate (Phoslo -) 667 mg PO TIDCM [facility] Last Admin: 03/06/16 11:54 Dose: 667 mg Duloxetine HCl (Cymbalta -) 20 mg PO DAILY [facility] Last Admin: 03/06/16 09:21 Dose: 20 mg Furosemide (Lasix Injection -) 80 mg IVPB BID@0600,1400 [facility] Last Admin: 03/06/16 14:16 Dose: 80 mg Hydralazine HCl (Apresoline -) 50 mg PO TID [facility] Last Admin: 03/06/16 14:16 Dose: 50 mg Methylprednisolone Sodium Succinate (Solu-Medrol -) 40 mg IVPB Q8H-IV [facility] Last Admin: 03/06/16 09:21 Dose: 40 mg Prasugrel (Effient -) 10 mg PO DAILY [facility] Last Admin: 03/06/16 11:55 Dose: 10 mg Pregabalin (Lyrica -) 25 mg PO DAILY [facility] Last Admin: 03/06/16 09:22 Dose: 25 mg Tiotropium [place] (Spiriva -) 1 puff IH DAILY [facility] Last Admin: 03/06/16 11:55 Dose: 1 inh - Objective Vital Signs: Vital Signs Temperature 97.9 F 03/06/16 10:00 Pulse Rate 84 03/06/16 10:31 Respiratory Rate 22 03/06/16 10:00 Blood Pressure 132/60 03/06/16 10:00 O2 Sat by Pulse Oximetry (%) 95 03/06/16 10:31 Constitutional: Yes: Calm, Mild Distress Cardiovascular: Yes: Regular Rate and Rhythm Respiratory: Yes: Regular, Poor Air Entry, Other Gastrointestinal: Yes: Normal Bowel Sounds, Soft Musculoskeletal: Yes: Other Extremities: Yes: Other Edema: LLE: 2+, RLE: 2+ Neurological: Yes: Alert, Oriented Psychiatric: Yes: Alert Labs: CBC, BMP 03/05/16 11:20 03/06/16 07:30 INR, PTT INR 1.12 (0.82-1.09) 02/18/16 13:00 Assessment/Plan 75 year-old man with a PMH of HTN, PVD, COPD, CKD (baseline Cr 1.9), nephrolithiasis, and chronic LE lymphedema. Admitted in acute renal failure. Acute on chronic renal failure Hyperkalemia Sepsis s Hypertension Peripheral vascular disease Hypercarbic respiratory failure COPD bilateral cellulitis of the legs rsv lung infection plan continue current mgmt rest as per primary incentive igor physiotherapy--patient wants physiotherapy,him and his family
--- NOTE | 2016-03-06 17:11 | PN ---
Physical Exam: SUBJECTIVE: Patient seen and examined at bedside. Pt still feels like he has SOB with minimal exertion. Does not feel back to baseline. Denies CP, abd pain , N/V/F/C. OBJECTIVE: Vital Signs Temperature 97.1 F L 03/06/16 16:00 Pulse Rate 95 H 03/06/16 16:00 Respiratory Rate 22 03/06/16 16:00 Blood Pressure 160/66 03/06/16 16:00 O2 Sat by Pulse Oximetry (%) 95 03/06/16 10:31 GENERAL: The patient is awake, alert, and fully oriented, in no acute distress. HEAD: Normal with no signs of trauma. EYES: extraocular movements intact, sclera anicteric, conjunctiva clear. No ptosis. NECK: Trachea midline, full range of motion LUNGS: Diminished breath sounds, mild wheezing b/l HEART: Regular rate and rhythm, S1, S2 without murmur, rub or gallop. ABDOMEN: Obese, Soft, nontender, nondistended, normoactive bowel sounds, no guarding, no rebound, no hepatosplenomegaly, no masses. EXTREMITIES: warm, well-perfused, B/L cellulitic changes, B/L LE 3+ pitting edema and alvarado crusted chronic lesions. NEUROLOGICAL: Normal speech, gait not observed. PSYCH: Normal mood, normal affect. SKIN: Warm, dry, normal turgor, skin changes as noted above in extremities. Laboratory Results - last 24 hr 03/06/16 07:30 Sodium 139 Potassium 4.1 Chloride 100 Carbon Dioxide 27 Anion Gap 12 BUN 133 H* Creatinine 3.6 H Creat Clearance w eGFR 16.70 Random Glucose 157 H Calcium 8.3 L Total Bilirubin 0.7 D AST 14 L D ALT 35 Alkaline Phosphatase 57 Total Protein 6.2 L Albumin 3.3 L Microbiology 02/29/16 17:40 Nasopharyngeal Swab Respiratory Virus Panel - Preliminary 02/25/16 17:30 Blood - Peripheral Venous Blood Culture - Final NO GROWTH AFTER 5 DAYS INCUBATION 02/25/16 17:30 Blood - Peripheral Venous Blood Culture - Final NO GROWTH AFTER 5 DAYS INCUBATION 02/28/16 17:40 Nasopharyngeal Swab Influenza Types A,B Antigen (TONI) - Final 02/28/16 17:40 Nasopharyngeal Swab - Final 02/26/16 06:45 Urine - Urine Clean Catch Urine Culture - Final NO GROWTH OBTAINED 02/18/16 19:15 Blood - Peripheral Venous Blood Culture - Final NO GROWTH AFTER 5 DAYS INCUBATION 02/18/16 19:15 Blood - Peripheral Venous Blood Culture - Final NO GROWTH AFTER 5 DAYS INCUBATION 02/18/16 18:10 Urine - Urine Clean Catch Urine Culture - Final NO GROWTH OBTAINED Active Medications Generic Name Dose Route Start Last Admin Trade Name Freq PRN Reason Stop Dose Admin Acetylcysteine 200 mg 02/26/16 10:00 03/06/16 10:05 Mucomyst 20 Oral / Inh Use Only* NEB 200 mg BID LESLEE Administration Albuterol Sulfate 1 amp 03/06/16 16:01 Ventolin 0.083% Nebulizer Soln - NEB Q4H PRN SHORT OF BREATH/WHEEZING Albuterol Sulfate 1 amp 03/06/16 18:00 Ventolin 0.083% Nebulizer Soln - NEB QIDR LESLEE Arformoterol Tartrate 1 amp 02/23/16 22:00 03/06/16 10:05 Brovana (Restricted To Pulmonology/Resp) - NEB 1 amp BID LESLEE Administration Aspirin 81 mg 02/24/16 10:00 03/06/16 09:23 Ecotrin - PO 81 mg DAILY LESLEE Administration Calcitriol 0.25 mcg 02/24/16 12:45 03/06/16 10:09 Rocaltrol - PO 0.25 mcg DAILY LESLEE Administration Calcium Acetate 667 mg 02/23/16 17:30 03/06/16 11:54 Phoslo - PO 667 mg TIDCM LESLEE Administration Duloxetine HCl 20 mg 02/24/16 10:00 03/06/16 09:21 Cymbalta - PO 20 mg DAILY LESLEE Administration Furosemide 80 mg 03/03/16 14:00 03/06/16 14:16 Lasix Injection - IVPB 80 mg BID@0600,1400 LESLEE Administration Hydralazine HCl 50 mg 02/28/16 22:00 03/06/16 14:16 Apresoline - PO 50 mg TID LESLEE Administration Methylprednisolone Sodium Succinate 40 mg 03/04/16 18:00 03/06/16 09:21 Solu-Medrol - IVPB 40 mg Q8H-IV LESLEE Administration Prasugrel 10 mg 02/24/16 10:00 03/06/16 11:55 Effient - PO 10 mg DAILY LESLEE Administration Pregabalin 25 mg 03/02/16 11:15 03/06/16 09:22 Lyrica - PO 25 mg DAILY LESLEE Administration Tiotropium [place] 1 puff 02/22/16 11:15 03/06/16 11:55 Spiriva - IH 1 inh DAILY LESLEE Administration ASSESSMENT/PLAN: 75 year-old man with a PMH of HTN, PVD, COPD, CKD (baseline Cr 1.9), nephrolithiasis, and chronic LE lymphedema. Admitted for acute renal failure ( hyperkalemia) and respiratory distress. # Acute on chronic renal failure -drinking water and snapple. Told to limit to 1L per day due to SOB. -Today BUN/Cr 133/3.6 (baseline 1.8-1.9), creatinine improving slowly off HD. -urine: output improving - 1200 ml yesterday, nothing charted today so far. -lasix 80 mg IV bid # Acute COPD exacerbation with hypercapnic respiratory failure -SOB with minimal exertion -brovana, albuterol neb q4h PRN, albuterol neb standing qid -solumedrol 40 mg IV day 3 #SOB -Resp virus panel - RSV positive -diuresis with Lasix IV 80 mg BID #. Anemia, microcytic -Anemia of chronic disease secondary to CKD, TIBC low -Hgb 8 (s/p 1 unit PRBC); stable -Transfuse if Hgb <7. # Sepsis secondary to B/L lower extremity cellulitis -resolved -off abx # HTN -hydralazine 50 mg PO TID #. CHF (diastolic) -lasix 80 mg iv bid now -Causing his LE edema most likely -will get B/L LE duplex to r/o PE # Hx of Depression -c/w cymbalta # CAD -prasugrel 10 mg PO qd #. FEN -hypocalcemia -c/w calcitriol - f/u BMP # Dispo: monitor on floors. Physiotherapy. Problem List - Problems (1) Acute kidney failure Code(s): N17.9 - ACUTE KIDNEY FAILURE, UNSPECIFIED Qualifiers: Acute renal failure type: unspecified Qualified Code(s): N17.9 - Acute kidney failure, unspecified (2) COPD exacerbation Code(s): J44.1 - CHRONIC OBSTRUCTIVE PULMONARY DISEASE W (ACUTE) EXACERBATION (3) Hyperkalemia Code(s): E87.5 - HYPERKALEMIA (4) Acute and chronic respiratory failure ([id number]) Code(s): J96.20 - ACUTE AND CHR RESP FAILURE, UNSP W HYPOXIA OR HYPERCAPNIA Qualifiers: Respiratory failure complication: hypoxia and hypercapnia Qualified Code(s): J96.21 - Acute and chronic respiratory failure with hypoxia (5) Acute exacerbation of chronic obstructive pulmonary disease (COPD) Code(s): J44.1 - CHRONIC OBSTRUCTIVE PULMONARY DISEASE W (ACUTE) EXACERBATION (6) Acute on chronic diastolic (congestive) heart failure Code(s): I50.33 - ACUTE ON CHRONIC DIASTOLIC (CONGESTIVE) HEART FAILURE (7) Anxiety and depression Code(s): F41.9 - ANXIETY DISORDER, UNSPECIFIED F32.9 - MAJOR DEPRESSIVE DISORDER, SINGLE EPISODE, UNSPECIFIED (8) Cellulitis Code(s): L03.90 - CELLULITIS, UNSPECIFIED Qualifiers: Site of cellulitis of extremity: lower extremity (9) Chronic kidney disease (CKD) Code(s): N18.9 - CHRONIC KIDNEY DISEASE, UNSPECIFIED Qualifiers: Chronic kidney disease stage: unspecified stage Qualified Code(s): N18.9 - Chronic kidney disease, unspecified (10) Diastolic CHF Code(s): I50.30 - UNSPECIFIED DIASTOLIC (CONGESTIVE) HEART FAILURE (11) Hyperlipidemia Code(s): E78.5 - HYPERLIPIDEMIA, UNSPECIFIED (12) Hypertension Code(s): I10 - ESSENTIAL (PRIMARY) HYPERTENSION (13) Obesities, morbid Code(s): E66.01 - MORBID (SEVERE) OBESITY DUE TO EXCESS CALORIES Qualifiers: Obesity type: with alveolar hypoventilation Qualified Code(s): E66.2 - Morbid (severe) obesity with alveolar hypoventilation (14) Respiratory failure with hypoxia and hypercapnia Code(s): J96.91 - RESPIRATORY FAILURE, UNSPECIFIED WITH HYPOXIA J96.92 - RESPIRATORY FAILURE, UNSPECIFIED WITH HYPERCAPNIA Qualifiers: Chronicity: acute on chronic Qualified Code(s): J96.21 - Acute and chronic respiratory failure with hypoxia; J96.22 - Acute and chronic respiratory failure with hypercapnia (15) Shortness of breath Code(s): R06.02 - SHORTNESS OF BREATH Visit type - Emergency Visit Emergency Visit: Yes ED Registration Date: 02/18/16 Care time: The patient presented to the Emergency Department on the above date and was hospitalized for further evaluation of their emergent condition. - New Patient This patient is new to me today: No - Critical Care Critical Care patient: No
--- NOTE | 2016-03-06 17:37 | PN ---
Progress Note (short form) - Note Progress Note: Renal Follow up for KARLOS Pt seen and examined at the bedside complains of right sided chest wall pain that is intermittent no sob, fever, chills No N/V/D Legs remain swollen no weight recorded the past few days Vital Signs Temperature 97.6 F 03/03/16 06:00 Pulse Rate 87 03/03/16 10:14 Respiratory Rate 18 03/03/16 06:00 Blood Pressure 166/79 03/03/16 06:00 O2 Sat by Pulse Oximetry (%) 96 03/03/16 10:14 Intake & Output 02/29/16 03/01/16 03/02/16 03/03/16 23:59 23:59 23:59 23:59 Intake Total 1500 1140 1420 110 Output Total 2300 1200 1200 Balance -800 -60 220 110 Gen: NAD CVS: RRR No M/R Lungs: dec BS throughout the lung rey Abd: Soft NT + Mild distension Ext: > 3+ LE Lymph edema, no cyanosis or clubbing CBC, BMP 03/03/16 06:30 03/03/16 06:30 Laboratory Tests 03/02/16 03/03/16 06:30 06:30 Calcium 7.8 L 8.4 L Phosphorus 5.6 H 5.6 H Magnesium 2.4 2.5 H Current Medications Acetylcysteine (Mucomyst 20 Oral / Inh Use Only*) 200 mg NEB BID [facility] Last Admin: 03/03/16 10:15 Dose: 200 mg Albuterol Sulfate (Ventolin 0.083% Nebulizer Soln -) 1 amp NEB Q4H PRN PRN Reason: SHORT OF BREATH/WHEEZING Last Admin: 02/28/16 18:26 Dose: 1 amp Albuterol Sulfate (Ventolin 0.083% Nebulizer Soln -) 1 amp NEB QIDR [facility] Last Admin: 03/03/16 06:54 Dose: 1 amp Arformoterol Tartrate (Brovana (Restricted To Pulmonology/Resp) -) 1 amp NEB BID [facility] Last Admin: 03/03/16 10:15 Dose: 1 amp Aspirin (Ecotrin -) 81 mg PO DAILY [facility] Last Admin: 03/02/16 11:20 Dose: 81 mg Calcitriol (Rocaltrol -) 0.25 mcg PO DAILY [facility] Last Admin: 03/02/16 11:20 Dose: 0.25 mcg Calcium Acetate (Phoslo -) 667 mg PO TIDCM [facility] Last Admin: 03/03/16 08:45 Dose: 667 mg Duloxetine HCl (Cymbalta -) 20 mg PO DAILY [facility] Last Admin: 03/02/16 12:41 Dose: 20 mg Furosemide (Lasix Injection -) 80 mg IVPB BID@0600,1400 [facility] Guaifenesin (Diabetic Tussin Dm -) 5 ml PO Q4H PRN PRN Reason: COUGH Last Admin: 02/27/16 10:43 Dose: 5 ml Hydralazine HCl (Apresoline -) 50 mg PO TID [facility] Last Admin: 03/03/16 06:15 Dose: 50 mg Methylprednisolone Sodium Succinate (Solu-Medrol -) 60 mg IVPB Q8H-IV [facility] Last Admin: 03/03/16 02:13 Dose: 60 mg Prasugrel (Effient -) 10 mg PO DAILY [facility] Last Admin: 03/02/16 12:41 Dose: 10 mg Pregabalin (Lyrica -) 25 mg PO DAILY [facility] Last Admin: 03/02/16 11:20 Dose: 25 mg Tiotropium [place] (Spiriva -) 1 puff IH DAILY [facility] Last Admin: 03/02/16 11:21 Dose: 1 inh A/P 75 year old Gentleman with PMhx of CKD Stage 3 (baseline Cr 1.9), Hx of Nephrolithiasis, Hypertension, COPD, CHF, PVD, Chronic LE lymph edema who was sent into the ED from wound care for increased lethargy and decreased urination for several days with KARLOS with BUN/Cr of 115/7.2 and K of 6.5 #Acute Renal Failure on CKD Renal function improved and stable pt is non-oliguric remains volume overloaded on Lasix 80mg IV BID Trend 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
[2016-03-06 18:21] LABS: MCH 24.6 pg (25.7-33.7); MCHC 31.3 g/dl (32.0-35.9); MEAN CELL VOLUME 78.6 fl (80-96); MEAN PLT VOLUME 7.8 fl (7.5-11.1); NEUTROPHILS 87.9 % (42.8-82.8); PLATELET COUNT 267 K/MM3 (134-434); RDW 20.7 % (11.9-15.9); WHITE BLOOD COUNT 7.2 K/mm3 (4.0-10.0)
--- NOTE | 2016-03-06 20:19 | PN ---
Teaching Attending Note Name of Resident: Freddie Strickland ATTENDING PHYSICIAN STATEMENT I saw and evaluated the patient. I reviewed the resident's note and discussed the case with the resident. I agree with the resident's findings and plan as documented. SUBJECTIVE: OBJECTIVE: Vital Signs Temperature 97.5 F L 03/06/16 17:37 Pulse Rate 96 H 03/06/16 17:37 Respiratory Rate 20 03/06/16 17:37 Blood Pressure 158/60 03/06/16 17:37 O2 Sat by Pulse Oximetry (%) 95 03/06/16 10:31 GENERAL: awake, alert, and fully oriented, in no acute distress. Sitting on the side of the bed. HEAD: Normal with no signs of trauma. EYES: conjunctiva clear. ENT: moist mucous membranes. NECK: Trachea midline, full range of motion. LUNGS: Diminished breath sounds. no wheezing wheezing or crackles. HEART: Distant heart sounds. Regular rate and rhythm, S1, S2 without murmur, rub or gallop. ABDOMEN: Soft, obese, NT,ND, normoactive bowel sounds, no guarding, no rebound, no hepatosplenomegaly, no masses. EXTREMITIES: 2+ pulses, warm, well-perfused, B/L cellulitic changes, B/L LE 3+ pitting edema and alvarado crusted chronic lesions. NEUROLOGICAL: Normal speech, gait not observed. PSYCH: Normal mood, normal affect CBCD WBC 7.2 K/mm3 (4.0-10.0) 03/06/16 17:30 RBC 3.53 M/mm3 (4.00-5.60) L 03/06/16 17:30 Hgb 8.7 GM/dL (11.7-16.9) L 03/06/16 17:30 Hct 27.8 % (35.4-49) L 03/06/16 17:30 MCV 78.6 fl (80-96) L 03/06/16 17:30 MCHC 31.3 g/dl (32.0-35.9) L 03/06/16 17:30 RDW 20.7 % (11.9-15.9) H 03/06/16 17:30 Plt Count 267 K/MM3 (134-434) 03/06/16 17:30 MPV 7.8 fl (7.5-11.1) 03/06/16 17:30 CMP Sodium 139 mmol/L (136-145) 03/06/16 07:30 Potassium 4.1 mmol/L (3.5-5.1) 03/06/16 07:30 Chloride 100 mmol/L (98-107) 03/06/16 07:30 Carbon Dioxide 27 mmol/L (21-32) 03/06/16 07:30 Anion Gap 12 (8-16) 03/06/16 07:30 BUN 133 mg/dL (7-18) H* 03/06/16 07:30 Creatinine 3.6 mg/dL (0.7-1.3) H 03/06/16 07:30 Creat Clearance w eGFR 16.70 (>60) 03/06/16 07:30 Random Glucose 157 mg/dL (74-106) H 03/06/16 07:30 Calcium 8.3 mg/dL (8.5-10.1) L 03/06/16 07:30 Total Bilirubin 0.7 mg/dL (0.2-1.0) D 03/06/16 07:30 AST 14 U/L (15-37) L D 03/06/16 07:30 ALT 35 U/L (12-78) 03/06/16 07:30 Alkaline Phosphatase 57 U/L (45-117) 03/06/16 07:30 Total Protein 6.2 g/dl (6.4-8.2) L 03/06/16 07:30 Albumin 3.3 g/dl (3.4-5.0) L 03/06/16 07:30 CARDIAC ENZYMES Creatine Kinase 76 IU/L (39-308) 02/19/16 05:30 Troponin I < 0.02 ng/ml (0.015-0.045) 02/19/16 21:50 Current Medications Generic Name Dose Route Start Last Admin Trade Name Freq PRN Reason Stop Dose Admin Acetylcysteine 200 mg 02/26/16 10:00 03/06/16 10:05 Mucomyst 20 Oral / Inh Use Only* NEB 200 mg BID LESLEE Administration Albuterol Sulfate 1 amp 03/06/16 16:01 Ventolin 0.083% Nebulizer Soln - NEB Q4H PRN SHORT OF BREATH/WHEEZING Albuterol Sulfate 1 amp 03/06/16 18:00 03/06/16 17:01 Ventolin 0.083% Nebulizer Soln - NEB 1 amp QIDR LESLEE Administration Arformoterol Tartrate 1 amp 02/23/16 22:00 03/06/16 10:05 Brovana (Restricted To Pulmonology/Resp) - NEB 1 amp BID LESLEE Administration Aspirin 81 mg 02/24/16 10:00 03/06/16 09:23 Ecotrin - PO 81 mg DAILY LESLEE Administration Calcitriol 0.25 mcg 02/24/16 12:45 03/06/16 10:09 Rocaltrol - PO 0.25 mcg DAILY LESLEE Administration Calcium Acetate 667 mg 02/23/16 17:30 03/06/16 17:10 Phoslo - PO 667 mg TIDCM LESLEE Administration Duloxetine HCl 20 mg 02/24/16 10:00 03/06/16 09:21 Cymbalta - PO 20 mg DAILY LESLEE Administration Furosemide 80 mg 03/03/16 14:00 03/06/16 14:16 Lasix Injection - IVPB 80 mg BID@0600,1400 LESLEE Administration Hydralazine HCl 50 mg 02/28/16 22:00 03/06/16 14:16 Apresoline - PO 50 mg TID LESLEE Administration Methylprednisolone Sodium Succinate 40 mg 03/04/16 18:00 03/06/16 17:20 Solu-Medrol - IVPB 40 mg Q8H-IV LESLEE Administration Prasugrel 10 mg 02/24/16 10:00 03/06/16 11:55 Effient - PO 10 mg DAILY LESLEE Administration Pregabalin 25 mg 03/02/16 11:15 03/06/16 09:22 Lyrica - PO 25 mg DAILY LESLEE Administration Tiotropium [place] 1 puff 02/22/16 11:15 03/06/16 11:55 Spiriva - IH 1 inh DAILY LESLEE Administration Medication Instructions Recorded Acetaminophen W/ Codeine #3 1 tab PO Q6H PRN 02/18/16 [Tylenol # 3 -] Albuterol 0.083% Nebulizer Son[place] 1 amp NEB ASDIR PRN 02/18/16 [Ventolin 0.083% Nebulizer Soln -] Aspirin [Ecotrin] 81 mg PO DAILY 02/18/16 Duloxetine HCl 20 mg PO DAILY 02/18/16 Furosemide 20 mg PO HS 02/18/16 Furosemide 40 mg PO DAILY 02/18/16 Hydralazine HCl [Apresoline -] 50 mg PO HS 02/18/16 Prasugrel HCl [Effient] 10 mg PO DAILY 02/18/16 Prednisone 5 mg PO DAILY 02/18/16 Pregabalin [Lyrica] 25 mg PO DAILY 02/18/16 ASSESSMENT AND PLAN: 75 year-old man with a PMHx of HTN, PVD, COPD, CKD (baseline Cr 1.8), nephrolithiasis, D CHF , CAD s/p stenting in 03/23 and chronic LE lymphedema. presented with SOB and was found to have acute hypercapnic resp failure with acute renal failure . # Acute hypercapnic resp failure due to severe COPD exacerbation with diastolic heart failure improving On IV LAsix 80mg BID and monitor I/O, will change Solu MEdrol to 40mg IV q8h x 2 days then will reduce ; Pulm and card. on the case. # Acute cellultis of LE : improving # KARLOS on CKD: unclear etiology ,no M spike on SPEP ? ATN due to volume depletion. off HD now # microcytic anemia . due to CKD ; no evidence of iron def ( ACD ) s/p one unit of RBC # HTN Uncontrolled patient is on Parvez.DM will dicontinue since might elevate the BP , cont Hydralazine. #cough will place him on Robitussin Ac 5cc q6h prn not ready for dc yet.
[2016-03-07] MEDS: methylPREDNISolone NA SUCC 40 MG/1 ML VIAL IVPB SCH ×3 (02:21→18:20)
[2016-03-07] MEDS: hydrALAZINE HCL 50 MG TABLET (FP) PO SCH ×3 (06:45→22:25)
[2016-03-07] MEDS: FUROSEMIDE 40 MG/4 ML INJECTABLE VIAL IVPB SCH ×2 (06:45→13:15)
[2016-03-07] MEDS: ALBUTEROL SO4 0.083% IH SOL 2.5 MG/3 ML VIAL.NEB. NEB SCH ×4 (06:57→17:39)
[2016-03-07 09:08] LABS: CALCIUM 8.1 mg/dL (8.5-10.1); CREATININE 3.7 mg/dL (0.7-1.3); MAGNESIUM 2.6 mg/dL (1.8-2.4); PHOSPHOROUS 6.1 mg/dL (2.5-4.9)
[2016-03-07] MEDS: PREGABALIN 25 MG CAPSULE PO SCH (09:11)
[2016-03-07] MEDS: CALCIUM ACETATE 667 MG CAPSULE (FP) PO SCH ×3 (09:11→18:07)
--- NOTE | 2016-03-07 09:51 | PN ---
Progress Note, Physician Chief Complaint: sitting in chair, comfortable. No acute distress - Current Medication List Current Medications: Active Medications Acetylcysteine (Mucomyst 20 Oral / Inh Use Only*) 200 mg NEB BID [facility] Last Admin: 03/06/16 22:57 Dose: 200 mg Albuterol Sulfate (Ventolin 0.083% Nebulizer Soln -) 1 amp NEB Q4H PRN PRN Reason: SHORT OF BREATH/WHEEZING Albuterol Sulfate (Ventolin 0.083% Nebulizer Soln -) 1 amp NEB QIDR [facility] Last Admin: 03/07/16 06:57 Dose: 1 amp Arformoterol Tartrate (Brovana (Restricted To Pulmonology/Resp) -) 1 amp NEB BID [facility] Last Admin: 03/06/16 22:57 Dose: 1 amp Aspirin (Ecotrin -) 81 mg PO DAILY [facility] Last Admin: 03/06/16 09:23 Dose: 81 mg Calcitriol (Rocaltrol -) 0.25 mcg PO DAILY [facility] Last Admin: 03/06/16 10:09 Dose: 0.25 mcg Calcium Acetate (Phoslo -) 667 mg PO TIDCM [facility] Last Admin: 03/07/16 09:11 Dose: 667 mg Duloxetine HCl (Cymbalta -) 20 mg PO DAILY [facility] Last Admin: 03/06/16 09:21 Dose: 20 mg Furosemide (Lasix Injection -) 80 mg IVPB BID@0600,1400 [facility] Last Admin: 03/07/16 06:45 Dose: 80 mg Hydralazine HCl (Apresoline -) 50 mg PO TID [facility] Last Admin: 03/07/16 06:45 Dose: 50 mg Methylprednisolone Sodium Succinate (Solu-Medrol -) 40 mg IVPB Q8H-IV [facility] Last Admin: 03/07/16 02:21 Dose: 40 mg Prasugrel (Effient -) 10 mg PO DAILY [facility] Last Admin: 03/06/16 11:55 Dose: 10 mg Pregabalin (Lyrica -) 25 mg PO DAILY [facility] Last Admin: 03/07/16 09:11 Dose: 25 mg Tiotropium [place] (Spiriva -) 1 puff IH DAILY [facility] Last Admin: 03/06/16 11:55 Dose: 1 inh - Objective Vital Signs: Vital Signs Temperature 98.2 F 03/07/16 06:00 Pulse Rate 87 03/07/16 06:00 Respiratory Rate 20 03/07/16 06:00 Blood Pressure 168/89 03/07/16 06:00 O2 Sat by Pulse Oximetry (%) 95 03/06/16 21:00 Constitutional: Yes: No Distress Cardiovascular: Yes: Regular Rate and Rhythm Respiratory: Yes: Other (decreased breath sounds bilaterally, no active wheezing , no rales.) Gastrointestinal: Yes: Soft, Abdomen, Obese Edema: Yes Edema: LLE: 2+, RLE: 2+ Neurological: Yes: Alert Labs: CBC, BMP 03/06/16 17:30 INR, PTT INR 1.12 (0.82-1.09) 02/18/16 13:00 Assessment/Plan Assessment/Plan 75 year old man with a history of HTN, COPD on home O2, Chronic combined systolic/diastolic CHF, CKD, JOY, CAD moderate LV systolic dysfunction, cardiac cath 03/2015 showed 2VD with RCA and LAD disease. He underwent PCI with ABDON of RCA 03/2015 and staged PCI of LAD in 04/2015 with significant improvement in symptoms. He has been feeling well since then, now admitted with cellulitis, sepsis, TARYN on CKD and sob Chronic diastolic CHF NYHA class IV, LV systolic function normalized post PCI -he agreed to cut down significantly on his po fluid intake including apple juice, tea, water, and milk -cont lasix at current dose -monitor I/Os -monitor BUN/Creat, electrolytes, keep k=4, Mg=2 -not on bblocker due to severe COPD -not on PIPER-I currently due to fluctuating renal function -echo showed normal LV systolic function, no sig valvular abnl CAD-PCI with ABDON of RCA 03/2015 and staged PCI of LAD in 04/2015 -cont ASA and effient -cont lipitor Anemia- guaiac negative. -Transfused this admission -Follow H/H -further work up as per PMD Acute on chronic CKD- -creatinine improved since admission, seems to have stabilized -renal following.
[2016-03-07] MEDS: PRASUGREL HCL 10 MG TAB PO SCH ×2 (10:15→13:14)
[2016-03-07] MEDS: ACETYLCYSTEINE 20% 200MG/ML 4 ML VIAL *FOR ORAL / INH USE ONLY NEB SCH ×2 (10:20→22:35)
[2016-03-07] MEDS: ARFORMOTEROL TARTRATE 15 MCG/2 ML VIAL NEB SCH ×2 (10:20→22:35)
[2016-03-07] MEDS: DULoxetine HCL 20 MG CAPSULE.DR (FP) PO SCH (11:54)
[2016-03-07] MEDS: TIOTROPIUM BROMIDE 18 MCG/INH (DEVICE W/ 5 CAPSULES) IH SCH (11:54)
[2016-03-07] MEDS: ASPIRIN COATED 81 MG TABLET.EC PO SCH (11:54)
[2016-03-07] MEDS: CALCITRIOL 0.25 MCG CAPSULE (FP) PO SCH (11:55)
--- NOTE | 2016-03-07 15:43 | PN ---
Progress Note (short form) - Note Progress Note: Renal Follow up for KARLOS Pt seen and examined at the bedside continues to have dyspnea with exertion no chest pain Vital Signs Temperature 97.5 F L 03/07/16 11:40 Pulse Rate 128 H 03/07/16 14:28 Respiratory Rate 40 H 03/07/16 14:28 Blood Pressure 133/86 03/07/16 11:40 O2 Sat by Pulse Oximetry (%) 95 03/07/16 10:25 Intake & Output 03/04/16 03/05/16 03/06/16 03/07/16 23:59 23:59 23:59 23:59 Intake Total 2145 1755 800 100 Output Total 650 1650 1550 1200 Balance 1495 105 -750 -1100 Weight 319 lb 6 oz Gen: NAD CVS: RRR No M/R Lungs: dec BS throughout the lung rey + wheeze Abd: Soft NT + Mild distension Ext: > 3+ LE Lymph edema, no cyanosis or clubbing CBC, BMP 03/06/16 17:30 03/07/16 07:10 Current Medications Acetylcysteine (Mucomyst 20 Oral / Inh Use Only*) 200 mg NEB BID [facility] Last Admin: 03/07/16 10:20 Dose: 200 mg Albuterol Sulfate (Ventolin 0.083% Nebulizer Soln -) 1 amp NEB Q4H PRN PRN Reason: SHORT OF BREATH/WHEEZING Albuterol Sulfate (Ventolin 0.083% Nebulizer Soln -) 1 amp NEB QIDR [facility] Last Admin: 03/07/16 11:45 Dose: Not Given Arformoterol Tartrate (Brovana (Restricted To Pulmonology/Resp) -) 1 amp NEB BID [facility] Last Admin: 03/07/16 10:20 Dose: 1 amp Aspirin (Ecotrin -) 81 mg PO DAILY [facility] Last Admin: 03/07/16 11:54 Dose: 81 mg Calcitriol (Rocaltrol -) 0.25 mcg PO DAILY [facility] Last Admin: 03/07/16 11:55 Dose: 0.25 mcg Calcium Acetate (Phoslo -) 667 mg PO TIDCM [facility] Last Admin: 03/07/16 12:45 Dose: 667 mg Duloxetine HCl (Cymbalta -) 20 mg PO DAILY [facility] Last Admin: 03/07/16 11:54 Dose: 20 mg Furosemide (Lasix Injection -) 80 mg IVPB BID@0600,1400 [facility] Last Admin: 03/07/16 13:15 Dose: 80 mg Hydralazine HCl (Apresoline -) 50 mg PO TID [facility] Last Admin: 03/07/16 13:15 Dose: 50 mg Methylprednisolone Sodium Succinate (Solu-Medrol -) 40 mg IVPB Q8H-IV [facility] Last Admin: 03/07/16 11:54 Dose: 40 mg Prasugrel (Effient -) 10 mg PO DAILY [facility] Last Admin: 03/07/16 13:14 Dose: 10 mg Pregabalin (Lyrica -) 25 mg PO DAILY [facility] Last Admin: 03/07/16 09:11 Dose: 25 mg Tiotropium [place] (Spiriva -) 1 puff IH DAILY [facility] Last Admin: 03/07/16 11:54 Dose: 1 inh A/P 75 year old Gentleman with PMhx of CKD Stage 3 (baseline Cr 1.9), Hx of Nephrolithiasis, Hypertension, COPD, CHF, PVD, Chronic LE lymph edema who was sent into the ED from wound care for increased lethargy and decreased urination for several days with KARLOS with BUN/Cr of 115/7.2 and K of 6.5 #Acute Renal Failure on CKD stage 3 Cr is improved BUN elevated (steroids, diuretics) but no signs of uremia continue IV Lasix BID Dose all meds for Cr Cl less then 20 no indication for [employer] F[employer]NA[employer] TENDER at this time #Fluid overload/LE edema/Pleural effusions/COPD/RSV on IV lasix 80mg BID will consider switch to PO diuretics tomorrow ? thoracentesis as per primary #Hypocalcemia/Hyperphosphatemia/Secondary Hyperparatyrodism Corrected ca is within normal limits now Continue Phoslo continue Calcitriol #Microcytic Anemia s/p prbc transfusion will continue EMMA Q week for now until hgb > 10 Melvin Johnson DO
--- NOTE | 2016-03-07 17:22 | PN ---
Physical Exam: SUBJECTIVE: Patient seen and examined at bedside. Pt had thoracentesis on R side by IR at approximately 3:30 pm today. He denies any issues currently and says he feels about the same. Denies pain in back, CP, SOB at rest, still has SOB with minimal activity. Plan for thoracentesis tomorrow of L side. Hematoma formed at site of thoracentesis but looks like it is gradually improving with compression and ice. Denies light headedness, dizziness, N/V/F/ C. 800 cc fluid removed. OBJECTIVE: Vital Signs Temperature 97.5 F L 03/07/16 11:40 Pulse Rate 128 H 03/07/16 14:28 Respiratory Rate 40 H 03/07/16 14:28 Blood Pressure 133/86 03/07/16 11:40 O2 Sat by Pulse Oximetry (%) 95 03/07/16 10:25 GENERAL: The patient is awake, alert, and fully oriented, in no acute distress. HEAD: Normal with no signs of trauma. EYES: sclera anicteric, conjunctiva clear. No ptosis. ENT: moist mucous membranes. NECK: Trachea midline, full range of motion LUNGS: Diminished breath sounds, mild wheezing b/l HEART: Regular rate and rhythm, S1, S2 without murmur, rub or gallop. ABDOMEN: Obese, Soft, nontender, nondistended, normoactive bowel sounds, no guarding, no rebound, no hepatosplenomegaly, no masses. EXTREMITIES: warm, well-perfused, B/L cellulitic changes, B/L LE 3+ pitting edema and alvarado crusted chronic lesions. NEUROLOGICAL: Normal speech, gait not observed. PSYCH: Normal mood, normal affect. SKIN: Warm, dry, normal turgor, skin changes as noted above in extremities. R back, hematoma approximately 4X4 inches. Improving since initial presentation. Laboratory Results - last 24 hr 03/06/16 03/07/16 17:30 07:10 WBC 7.2 RBC 3.53 L Hgb 8.7 L Hct 27.8 L MCV 78.6 L MCHC 31.3 L RDW 20.7 H Plt Count 267 MPV 7.8 Neutrophils % 87.9 H Lymphocytes % 4.9 L D Monocytes % 7.2 Eosinophils % 0.0 Basophils % 0.0 Sodium 143 Potassium 4.0 Chloride 100 Carbon Dioxide 26 Anion Gap 17 H BUN 137 H* Creatinine 3.7 H Random Glucose 165 H Calcium 8.1 L Phosphorus 6.1 H Magnesium 2.6 H Microbiology 02/29/16 17:40 Nasopharyngeal Swab Respiratory Virus Panel - Final - RSV positive 02/25/16 17:30 Blood - Peripheral Venous Blood Culture - Final NO GROWTH AFTER 5 DAYS INCUBATION 02/25/16 17:30 Blood - Peripheral Venous Blood Culture - Final NO GROWTH AFTER 5 DAYS INCUBATION 02/28/16 17:40 Nasopharyngeal Swab Influenza Types A,B Antigen (TONI) - Final 02/28/16 17:40 Nasopharyngeal Swab - Final 02/26/16 06:45 Urine - Urine Clean Catch Urine Culture - Final NO GROWTH OBTAINED 02/18/16 19:15 Blood - Peripheral Venous Blood Culture - Final NO GROWTH AFTER 5 DAYS INCUBATION 02/18/16 19:15 Blood - Peripheral Venous Blood Culture - Final NO GROWTH AFTER 5 DAYS INCUBATION 02/18/16 18:10 Urine - Urine Clean Catch Urine Culture - Final NO GROWTH OBTAINED Active Medications Generic Name Dose Route Start Last Admin Trade Name Freq PRN Reason Stop Dose Admin Acetylcysteine 200 mg 02/26/16 10:00 03/07/16 10:20 Mucomyst 20 Oral / Inh Use Only* NEB 200 mg BID LELSEE Administration Albuterol Sulfate 1 amp 03/06/16 16:01 Ventolin 0.083% Nebulizer Soln - NEB Q4H PRN SHORT OF BREATH/WHEEZING Albuterol Sulfate 1 amp 03/06/16 18:00 03/07/16 11:45 Ventolin 0.083% Nebulizer Soln - NEB Not Given QIDR LESLEE Arformoterol Tartrate 1 amp 02/23/16 22:00 03/07/16 10:20 Brovana (Restricted To Pulmonology/Resp) - NEB 1 amp BID LESLEE Administration Aspirin 81 mg 02/24/16 10:00 03/07/16 11:54 Ecotrin - PO 81 mg DAILY LESLEE Administration Calcitriol 0.25 mcg 02/24/16 12:45 03/07/16 11:55 Rocaltrol - PO 0.25 mcg DAILY LESLEE Administration Calcium Acetate 667 mg 02/23/16 17:30 03/07/16 12:45 Phoslo - PO 667 mg TIDCM LESLEE Administration Duloxetine HCl 20 mg 02/24/16 10:00 03/07/16 11:54 Cymbalta - PO 20 mg DAILY LESLEE Administration Furosemide 80 mg 03/03/16 14:00 03/07/16 13:15 Lasix Injection - IVPB 80 mg BID@0600,1400 LESLEE Administration Hydralazine HCl 50 mg 02/28/16 22:00 03/07/16 13:15 Apresoline - PO 50 mg TID LESLEE Administration Methylprednisolone Sodium Succinate 40 mg 03/04/16 18:00 03/07/16 11:54 Solu-Medrol - IVPB 40 mg Q8H-IV LESLEE Administration Prasugrel 10 mg 02/24/16 10:00 03/07/16 13:14 Effient - PO 10 mg DAILY LESLEE Administration Pregabalin 25 mg 03/02/16 11:15 03/07/16 09:11 Lyrica - PO 25 mg DAILY LESLEE Administration Tiotropium [place] 1 puff 02/22/16 11:15 03/07/16 11:54 Spiriva - IH 1 inh DAILY LESLEE Administration ASSESSMENT/PLAN: 75 year-old man with a PMH of HTN, PVD, COPD, CKD (baseline Cr 1.9), nephrolithiasis, and chronic LE lymphedema. Admitted for acute renal failure ( hyperkalemia) and respiratory distress. # Acute on chronic renal failure -drinking water and snapple. Told to limit to 1L per day due to SOB. -Today BUN/Cr 137/3.7 (baseline 1.8-1.9), creatinine improving slowly off HD. -lasix iv bid 80 mg -CrCl 36 -possibly switch to PO lasix tomorrow # Acute COPD exacerbation with hypercapnic respiratory failure -SOB with minimal exertion -brovana, albuterol neb q4h PRN, albuterol neb standing qid -solumedrol 40 mg IV day 4 -will switch to prednisone 40 mg tomorrow. #SOB -Resp virus panel - RSV positive -diuresis with Lasix IV 80 mg BID; may switch to PO tomorrow as per nephro -R thoracentesis done today. 800 cc fluid removed. f/u fluid analysis. #Hematoma -Improving since initial presentation after thoracentesis -Ice pack, compression to site -CBC ordered stat, CBC ordered for 11:30 PM, and CBC for tomorrow AM -monitor, if Hgb <7, transfuse. # Anemia, microcytic -Anemia of chronic disease secondary to CKD, TIBC low -Hgb 8 (s/p 1 unit PRBC); stable -Transfuse if Hgb <7. # Sepsis secondary to B/L lower extremity cellulitis -resolved -off abx # HTN -hydralazine 50 mg PO TID #. CHF (diastolic) -lasix 80 mg iv bid now -Causing his LE edema most likely -will get B/L LE duplex to r/o PE # Hx of Depression -c/w cymbalta #neuropathy -lyrica 25 mg PO qd -still having sharp electric pain in feet. Consider increasing lyrica. CrCl is 36 # CAD -prasugrel 10 mg PO qd #. FEN -hypocalcemia -c/w calcitriol - f/u BMP # Dispo: monitor on floors. Physiotherapy. Problem List - Problems (1) Acute kidney failure Code(s): N17.9 - ACUTE KIDNEY FAILURE, UNSPECIFIED Qualifiers: Acute renal failure type: unspecified Qualified Code(s): N17.9 - Acute kidney failure, unspecified (2) COPD exacerbation Code(s): J44.1 - CHRONIC OBSTRUCTIVE PULMONARY DISEASE W (ACUTE) EXACERBATION (3) Hyperkalemia Code(s): E87.5 - HYPERKALEMIA (4) Acute and chronic respiratory failure ([id number]) Code(s): J96.20 - ACUTE AND CHR RESP FAILURE, UNSP W HYPOXIA OR HYPERCAPNIA Qualifiers: Respiratory failure complication: hypoxia and hypercapnia Qualified Code(s): J96.21 - Acute and chronic respiratory failure with hypoxia (5) Acute exacerbation of chronic obstructive pulmonary disease (COPD) Code(s): J44.1 - CHRONIC OBSTRUCTIVE PULMONARY DISEASE W (ACUTE) EXACERBATION (6) Acute on chronic diastolic (congestive) heart failure Code(s): I50.33 - ACUTE ON CHRONIC DIASTOLIC (CONGESTIVE) HEART FAILURE (7) Anxiety and depression Code(s): F41.9 - ANXIETY DISORDER, UNSPECIFIED F32.9 - MAJOR DEPRESSIVE DISORDER, SINGLE EPISODE, UNSPECIFIED (8) Cellulitis Code(s): L03.90 - CELLULITIS, UNSPECIFIED Qualifiers: Site of cellulitis of extremity: lower extremity (9) Chronic kidney disease (CKD) Code(s): N18.9 - CHRONIC KIDNEY DISEASE, UNSPECIFIED Qualifiers: Chronic kidney disease stage: unspecified stage Qualified Code(s): N18.9 - Chronic kidney disease, unspecified (10) Diastolic CHF Code(s): I50.30 - UNSPECIFIED DIASTOLIC (CONGESTIVE) HEART FAILURE (11) Hyperlipidemia Code(s): E78.5 - HYPERLIPIDEMIA, UNSPECIFIED (12) Hypertension Code(s): I10 - ESSENTIAL (PRIMARY) HYPERTENSION (13) Obesities, morbid Code(s): E66.01 - MORBID (SEVERE) OBESITY DUE TO EXCESS CALORIES Qualifiers: Obesity type: with alveolar hypoventilation Qualified Code(s): E66.2 - Morbid (severe) obesity with alveolar hypoventilation (14) Respiratory failure with hypoxia and hypercapnia Code(s): J96.91 - RESPIRATORY FAILURE, UNSPECIFIED WITH HYPOXIA J96.92 - RESPIRATORY FAILURE, UNSPECIFIED WITH HYPERCAPNIA Qualifiers: Chronicity: acute on chronic Qualified Code(s): J96.21 - Acute and chronic respiratory failure with hypoxia; J96.22 - Acute and chronic respiratory failure with hypercapnia (15) Shortness of breath Code(s): R06.02 - SHORTNESS OF BREATH (16) Hematoma Code(s): T14.8 - OTHER INJURY OF UNSPECIFIED BODY REGION Visit type - Emergency Visit Emergency Visit: Yes ED Registration Date: 02/18/16 Care time: The patient presented to the Emergency Department on the above date and was hospitalized for further evaluation of their emergent condition. - New Patient This patient is new to me today: No - Critical Care Critical Care patient: No
[2016-03-07 17:34] LABS: GLUCOSE,PLEURAL FLUID 215.755; TOTAL PROTEIN,PLEURAL FLUID 2.184
[2016-03-07 17:43] LABS: PLEURAL FLUID APPEARANCE CLOUDY; PLEURAL FLUID COLOR COLORLESS; PLEURAL FLUID SOURCE PLEURAL
[2016-03-07 18:02] LABS: PLEURAL FLUID LYMPHOCYTES 44 %; PLEURAL FLUID MACROPHAGES 34 %; PLEURAL FLUID NEUTROPHIL 1 %
[2016-03-07 19:12] LABS: MCH 24.6 pg (25.7-33.7); MCHC 30.5 g/dl (32.0-35.9); MEAN CELL VOLUME 80.7 fl (80-96); PLATELET COUNT 233 K/MM3 (134-434); RDW 21.1 % (11.9-15.9); WHITE BLOOD COUNT 9.2 K/mm3 (4.0-10.0)
--- NOTE | 2016-03-07 20:04 | PN ---
Teaching Attending Note Name of Resident: Freddie Strickland ATTENDING PHYSICIAN STATEMENT I saw and evaluated the patient. I reviewed the resident's note and discussed the case with the resident. I agree with the resident's findings and plan as documented. SUBJECTIVE: Patient is comfortable sitting on the chair but dyspneic on exertion, on oxygen NC, desating off NC. OBJECTIVE: Vital Signs Temperature 98.1 F 03/07/16 18:58 Pulse Rate 91 H 03/07/16 18:58 Respiratory Rate 20 03/07/16 18:58 Blood Pressure 148/61 03/07/16 18:58 O2 Sat by Pulse Oximetry (%) 96 03/07/16 19:58 GENERAL: awake, alert, and fully oriented, in no acute distress. Sitting on the side of the bed. HEAD: Normal with no signs of trauma. EYES: conjunctiva clear. ENT: moist mucous membranes. NECK: Trachea midline, full range of motion. LUNGS: Diminished breath sounds. positive for wheezing today , no crackles. HEART: S1S2 positive . Regular rate and rhythm, rub or gallop. ABDOMEN: Soft, obese, NT,ND, normoactive bowel sounds, no guarding, no rebound, no hepatosplenomegaly, no masses. EXTREMITIES: 2+ pulses, warm, B/L cellulitic changes improving, B/L LE 3+ pitting edema with Lymphedema and alvarado crusted chronic lesions. NEUROLOGICAL: Normal speech, gait not observed. PSYCH: Normal mood, normal affect CBCD WBC 9.2 K/mm3 (4.0-10.0) 03/07/16 18:49 RBC 3.34 M/mm3 (4.00-5.60) L 03/07/16 18:49 Hgb 8.2 GM/dL (11.7-16.9) L 03/07/16 18:49 Hct 26.9 % (35.4-49) L 03/07/16 18:49 MCV 80.7 fl (80-96) 03/07/16 18:49 MCHC 30.5 g/dl (32.0-35.9) L 03/07/16 18:49 RDW 21.1 % (11.9-15.9) H 03/07/16 18:49 Plt Count 233 K/MM3 (134-434) 03/07/16 18:49 MPV 8.0 fl (7.5-11.1) 03/07/16 18:49 CMP Sodium 143 mmol/L (136-145) 03/07/16 07:10 Potassium 4.0 mmol/L (3.5-5.1) 03/07/16 07:10 Chloride 100 mmol/L (98-107) 03/07/16 07:10 Carbon Dioxide 26 mmol/L (21-32) 03/07/16 07:10 Anion Gap 17 (8-16) H 03/07/16 07:10 BUN 137 mg/dL (7-18) H* 03/07/16 07:10 Creatinine 3.7 mg/dL (0.7-1.3) H 03/07/16 07:10 Creat Clearance w eGFR 16.70 (>60) 03/06/16 07:30 Random Glucose 165 mg/dL (74-106) H 03/07/16 07:10 Calcium 8.1 mg/dL (8.5-10.1) L 03/07/16 07:10 Total Bilirubin 0.7 mg/dL (0.2-1.0) D 03/06/16 07:30 AST 14 U/L (15-37) L D 03/06/16 07:30 ALT 35 U/L (12-78) 03/06/16 07:30 Alkaline Phosphatase 57 U/L (45-117) 03/06/16 07:30 Total Protein 6.2 g/dl (6.4-8.2) L 03/06/16 07:30 Albumin 3.3 g/dl (3.4-5.0) L 03/06/16 07:30 CARDIAC ENZYMES Creatine Kinase 76 IU/L (39-308) 02/19/16 05:30 Troponin I < 0.02 ng/ml (0.015-0.045) 02/19/16 21:50 Current Medications Generic Name Dose Route Start Last Admin Trade Name Freq PRN Reason Stop Dose Admin Acetylcysteine 200 mg 02/26/16 10:00 03/07/16 10:20 Mucomyst 20 Oral / Inh Use Only* NEB 200 mg BID LESLEE Administration Albuterol Sulfate 1 amp 03/06/16 16:01 Ventolin 0.083% Nebulizer Soln - NEB Q4H PRN SHORT OF BREATH/WHEEZING Albuterol Sulfate 1 amp 03/06/16 18:00 03/07/16 17:39 Ventolin 0.083% Nebulizer Soln - NEB 1 amp QIDR LESLEE Administration Arformoterol Tartrate 1 amp 02/23/16 22:00 03/07/16 10:20 Brovana (Restricted To Pulmonology/Resp) - NEB 1 amp BID LESLEE Administration Aspirin 81 mg 02/24/16 10:00 03/07/16 11:54 Ecotrin - PO 81 mg DAILY LESLEE Administration Calcitriol 0.25 mcg 02/24/16 12:45 03/07/16 11:55 Rocaltrol - PO 0.25 mcg DAILY LESLEE Administration Calcium Acetate 667 mg 02/23/16 17:30 03/07/16 18:07 Phoslo - PO 667 mg TIDCM LESLEE Administration Duloxetine HCl 20 mg 02/24/16 10:00 03/07/16 11:54 Cymbalta - PO 20 mg DAILY LESLEE Administration Furosemide 80 mg 03/03/16 14:00 03/07/16 13:15 Lasix Injection - IVPB 80 mg BID@0600,1400 LESLEE Administration Hydralazine HCl 50 mg 02/28/16 22:00 03/07/16 13:15 Apresoline - PO 50 mg TID LESLEE Administration Prasugrel 10 mg 02/24/16 10:00 03/07/16 13:14 Effient - PO 10 mg DAILY LESLEE Administration Prednisone 40 mg 03/07/16 22:00 Deltasone - PO TID LESLEE Pregabalin 25 mg 03/02/16 11:15 03/07/16 09:11 Lyrica - PO 25 mg DAILY LESLEE Administration Tiotropium [address] 1 puff 02/22/16 11:15 03/07/16 11:54 Spiriva - IH 1 inh DAILY LESLEE Administration Medication Instructions Recorded Acetaminophen W/ Codeine #3 1 tab PO Q6H PRN 02/18/16 [Tylenol # 3 -] Albuterol 0.083% Nebulizer [place] 1 amp NEB ASDIR PRN 02/18/16 [Ventolin 0.083% Nebulizer Soln -] Aspirin [Ecotrin] 81 mg PO DAILY 02/18/16 Duloxetine HCl 20 mg PO DAILY 02/18/16 Furosemide 20 mg PO HS 02/18/16 Furosemide 40 mg PO DAILY 02/18/16 Hydralazine HCl [Apresoline -] 50 mg PO HS 02/18/16 Prasugrel HCl [Effient] 10 mg PO DAILY 02/18/16 Prednisone 5 mg PO DAILY 02/18/16 Pregabalin [Lyrica] 25 mg PO DAILY 02/18/16 ASSESSMENT AND PLAN: 75 year-old man with a PMHx of HTN, PVD, COPD, CKD (baseline Cr 1.8), nephrolithiasis, D CHF , CAD s/p stenting in 03/23 and chronic LE lymphedema. presented with SOB and was found to have acute hypercapnic resp failure with acute renal failure . # Moderate size Pleural effusions, patient continues to have shortness of breath on exertion, going for thoracentesis by IR today one side and in am the other side, since patient is still SOB. # positive for RSV on Isolation for now , supportive care # Acute hypercapnic resp failure due to severe COPD exacerbation with diastolic heart failure improving On IV LAsix 80mg BID will consider switch to PO diuretics tomorrow and monitor I/O, on po steroid; prednisone 40mg daily now, s/p IV Solu Medrol ; Pulm and card. and nephro on the case. Discussed with the patient to cut down his po fluid intake to 1 liter per day , can have 2 bottles of Snapples only and nothing else , agreed not to drink anything else. #Acute Renal Failure on CKD stage 3, no M spike on SPEP , BUN elevated ( steroids, diuretics) but no signs of uremia at this time. Cr is improving. Cr Cl less then 20 adjust meds. accordingly. # Hypocalcemia/Hyperphosphatemia/Secondary Hyperparatyrodism; Corrected ca is within normal limits, on Phoslo continue as per nephro and on Calcitriol continue. # s/p cellultis of LE : improved s/p IV antibiotic as per ID, . patient is no longer on IV antibiotic. # microcytic anemia s/p prbc x1 unit, due to CKD ; Erythropoitin weekly until hgb > 10 given by , no evidence of iron def ( ACD ) # HTN Uncontrolled patient is on Parvez.DM will dicontinue since might elevate the BP , cont Hydralazine. not ready for dc yet.
[2016-03-07 20:20] LABS: ANISOCYTOSIS 2+; HYPOCHROMIA 1+; OVALOCYTES 1+
[2016-03-07] MEDS: predniSONE 20 MG TABLET (UD) PO SCH (22:25)
--- NOTE | 2016-03-07 23:03 | PN ---
Progress Note, Physician History of Present Illness: breathing difficulty continues - Current Medication List Current Medications: Active Medications Acetylcysteine (Mucomyst 20 Oral / Inh Use Only*) 200 mg NEB BID [facility] Last Admin: 03/07/16 10:20 Dose: 200 mg Albuterol Sulfate (Ventolin 0.083% Nebulizer Soln -) 1 amp NEB Q4H PRN PRN Reason: SHORT OF BREATH/WHEEZING Albuterol Sulfate (Ventolin 0.083% Nebulizer Soln -) 1 amp NEB QIDR [facility] Last Admin: 03/07/16 17:39 Dose: 1 amp Arformoterol Tartrate (Brovana (Restricted To Pulmonology/Resp) -) 1 amp NEB BID [facility] Last Admin: 03/07/16 10:20 Dose: 1 amp Aspirin (Ecotrin -) 81 mg PO DAILY [facility] Last Admin: 03/07/16 11:54 Dose: 81 mg Calcitriol (Rocaltrol -) 0.25 mcg PO DAILY [facility] Last Admin: 03/07/16 11:55 Dose: 0.25 mcg Calcium Acetate (Phoslo -) 667 mg PO TIDCM [facility] Last Admin: 03/07/16 18:07 Dose: 667 mg Duloxetine HCl (Cymbalta -) 20 mg PO DAILY [facility] Last Admin: 03/07/16 11:54 Dose: 20 mg Furosemide (Lasix Injection -) 80 mg IVPB BID@0600,1400 [facility] Last Admin: 03/07/16 13:15 Dose: 80 mg Hydralazine HCl (Apresoline -) 50 mg PO TID [facility] Last Admin: 03/07/16 22:25 Dose: 50 mg Prasugrel (Effient -) 10 mg PO DAILY [facility] Last Admin: 03/07/16 13:14 Dose: 10 mg Prednisone (Deltasone -) 40 mg PO TID [facility] Last Admin: 03/07/16 22:25 Dose: 40 mg Pregabalin (Lyrica -) 25 mg PO DAILY [facility] Last Admin: 03/07/16 09:11 Dose: 25 mg Tiotropium [place] (Spiriva -) 1 puff IH DAILY [facility] Last Admin: 03/07/16 11:54 Dose: 1 inh - Objective Vital Signs: Vital Signs Temperature 98.1 F 03/07/16 18:58 Pulse Rate 91 H 11/29/16 18:58 Respiratory Rate 20 03/07/16 18:58 Blood Pressure 148/61 03/07/16 18:58 O2 Sat by Pulse Oximetry (%) 96 03/07/16 20:03 Constitutional: Yes: Calm, Mild Distress Cardiovascular: Yes: Regular Rate and Rhythm Respiratory: Yes: On Nasal O2, Poor Air Entry Gastrointestinal: Yes: Normal Bowel Sounds, Soft, Abdomen, Obese Edema: LLE: 2+, RLE: 2+ Neurological: Yes: Alert, Oriented Psychiatric: Yes: Alert Labs: CBC, BMP 03/07/16 18:49 03/07/16 07:10 INR, PTT INR 1.12 (0.82-1.09) 02/18/16 13:00 Assessment/Plan 75 year-old man with a PMH of HTN, PVD, COPD, CKD (baseline Cr 1.9), nephrolithiasis, and chronic LE lymphedema. Admitted in acute renal failure. Acute on chronic renal failure Hyperkalemia Sepsis s Hypertension Peripheral vascular disease Hypercarbic respiratory failure COPD bilateral cellulitis of the legs rsv lung infection pleural effusion plan continue current mgmt rest as per primary incentive igor physiotherapy plan for pleural tap
[2016-03-08 00:01] LABS: MCH 24.6 pg (25.7-33.7); MCHC 30.9 g/dl (32.0-35.9); MEAN CELL VOLUME 79.7 fl (80-96); MEAN PLT VOLUME 7.8 fl (7.5-11.1); PLATELET COUNT 209 K/MM3 (134-434); RDW 20.8 % (11.9-15.9); WHITE BLOOD COUNT 9.3 K/mm3 (4.0-10.0)
[2016-03-08] MEDS: ALBUTEROL SO4 0.083% IH SOL 2.5 MG/3 ML VIAL.NEB. NEB SCH ×4 (06:28→18:56)
[2016-03-08] MEDS: hydrALAZINE HCL 50 MG TABLET (FP) PO SCH ×3 (06:32→21:27)
[2016-03-08] MEDS: FUROSEMIDE 40 MG/4 ML INJECTABLE VIAL IVPB SCH ×2 (06:32→15:45)
[2016-03-08] MEDS: predniSONE 20 MG TABLET (UD) PO SCH (06:33)
[2016-03-08 08:27] LABS: MCH 26.6 pg (25.7-33.7); MCHC 33.4 g/dl (32.0-35.9); MEAN CELL VOLUME 79.7 fl (80-96); MEAN PLT VOLUME 7.8 fl (7.5-11.1); PLATELET COUNT 184 K/MM3 (134-434); WHITE BLOOD COUNT 7.9 K/mm3 (4.0-10.0)
[2016-03-08 08:51] LABS: CREATININE 3.6 mg/dL (0.7-1.3); MAGNESIUM 2.6 mg/dL (1.8-2.4); PHOSPHOROUS 6.6 mg/dL (2.5-4.9)
[2016-03-08] MEDS: CALCIUM ACETATE 667 MG CAPSULE (FP) PO SCH ×3 (08:53→18:00)
[2016-03-08] MEDS: ACETYLCYSTEINE 20% 200MG/ML 4 ML VIAL *FOR ORAL / INH USE ONLY NEB SCH ×2 (09:15→22:20)
[2016-03-08] MEDS: ARFORMOTEROL TARTRATE 15 MCG/2 ML VIAL NEB SCH ×2 (09:15→22:20)
--- NOTE | 2016-03-08 09:22 | PN ---
Progress Note, Physician Chief Complaint: shivering, feels cold s/p thoracentesis- pressure dressing on, due persistent oozing History of Present Illness: BP elevated this AM - Current Medication List Current Medications: Active Medications Acetylcysteine (Mucomyst 20 Oral / Inh Use Only*) 200 mg NEB BID [facility] Last Admin: 03/07/16 22:35 Dose: 200 mg Albuterol Sulfate (Ventolin 0.083% Nebulizer Soln -) 1 amp NEB Q4H PRN PRN Reason: SHORT OF BREATH/WHEEZING Albuterol Sulfate (Ventolin 0.083% Nebulizer Soln -) 1 amp NEB QIDR [facility] Last Admin: 03/08/16 06:28 Dose: 1 amp Arformoterol Tartrate (Brovana (Restricted To Pulmonology/Resp) -) 1 amp NEB BID [facility] Last Admin: 03/07/16 22:35 Dose: 1 amp Aspirin (Ecotrin -) 81 mg PO DAILY [facility] Last Admin: 03/07/16 11:54 Dose: 81 mg Calcitriol (Rocaltrol -) 0.25 mcg PO DAILY [facility] Last Admin: 03/07/16 11:55 Dose: 0.25 mcg Calcium Acetate (Phoslo -) 667 mg PO TIDCM [facility] Last Admin: 03/08/16 08:53 Dose: 667 mg Duloxetine HCl (Cymbalta -) 20 mg PO DAILY [facility] Last Admin: 03/07/16 11:54 Dose: 20 mg Furosemide (Lasix Injection -) 80 mg IVPB BID@0600,1400 [facility] Last Admin: 03/08/16 06:32 Dose: 80 mg Hydralazine HCl (Apresoline -) 50 mg PO TID [facility] Last Admin: 03/08/16 06:32 Dose: 50 mg Prasugrel (Effient -) 10 mg PO DAILY [facility] Last Admin: 03/07/16 13:14 Dose: 10 mg Prednisone (Deltasone -) 40 mg PO DAILY [facility] Pregabalin (Lyrica -) 25 mg PO DAILY [facility] Last Admin: 03/07/16 09:11 Dose: 25 mg Tiotropium [place] (Spiriva -) 1 puff IH DAILY [facility] Last Admin: 03/07/16 11:54 Dose: 1 inh - Objective Vital Signs: Vital Signs Temperature 97.3 F L 03/08/16 06:00 Pulse Rate 89 03/08/16 06:00 Respiratory Rate 22 03/08/16 06:00 Blood Pressure 162/104 03/08/16 06:00 O2 Sat by Pulse Oximetry (%) 96 03/07/16 21:00 Cardiovascular: Yes: Regular Rate and Rhythm Respiratory: Yes: Other (decreased breath sounds b/l) Gastrointestinal: Yes: Soft, Abdomen, Obese Edema: Yes Edema: LLE: 2+, RLE: 2+ Neurological: Yes: Alert Labs: CBC, BMP 03/08/16 07:05 03/08/16 07:05 INR, PTT INR 1.12 (0.82-1.09) 02/18/16 13:00 Assessment/Plan Assessment/Plan 75 year old man with a history of HTN, COPD on home O2, Chronic combined systolic/diastolic CHF, CKD, JOY, CAD moderate LV systolic dysfunction, cardiac cath 03/2015 showed 2VD with RCA and LAD disease. He underwent PCI with ABDON of RCA 03/2015 and staged PCI of LAD in 04/2015 with significant improvement in symptoms. He has been feeling well since then, now admitted with cellulitis, sepsis, TARYN on CKD and sob S/p thoracentesis: -Watch H/H -Hold Effient -Transfuse as needed -Follow up CXR -IR follow up, oozing overnight from entry site Chills: -afebrile, but on steroids -will send cultures HTN: -add Norvasc 5mg daily Chronic diastolic CHF NYHA class IV, LV systolic function normalized post PCI: -on lasix, renal following. -monitor I/Os -monitor BUN/Creat, electrolytes, keep k=4, Mg=2 -not on bblocker due to severe COPD -not on PIPER-I currently due to fluctuating renal function -echo showed normal LV systolic function, no sig valvular abnl CAD-PCI with ABDON of RCA 03/2015 and staged PCI of LAD in 04/2015 -cont ASA, hold effient as oozing from thoracentesis site -cont lipitor Anemia- guaiac negative. -Transfused this admission -Follow H/H -further work up as per PMD Acute on chronic CKD- -creatinine improved since admission, seems to have stabilized -renal following.
[2016-03-08] MEDS ORDERED: predniSONE 20 MG TABLET (UD) PO SCH (10:00)
[2016-03-08] MEDS ORDERED: PT OWN MED DRAWER 7, Y5N ONE (10:40)
[2016-03-08] MEDS: amLODIPine BESYLATE 5 MG TABLET (FP) PO SCH (10:46)
[2016-03-08] MEDS: PREGABALIN 25 MG CAPSULE PO SCH (10:46)
[2016-03-08] MEDS: DULoxetine HCL 20 MG CAPSULE.DR (FP) PO SCH (10:46)
[2016-03-08] MEDS: CALCITRIOL 0.25 MCG CAPSULE (FP) PO SCH (10:46)
[2016-03-08] MEDS: TIOTROPIUM BROMIDE 18 MCG/INH (DEVICE W/ 5 CAPSULES) IH SCH (11:29)
--- NOTE | 2016-03-08 12:35 | PN ---
Progress Note, Physician History of Present Illness: Pt alert and oriented, still dyspneic and has tremors - Current Medication List Current Medications: Active Medications Acetylcysteine (Mucomyst 20 Oral / Inh Use Only*) 200 mg NEB BID [facility] Last Admin: 03/08/16 09:15 Dose: 200 mg Albuterol Sulfate (Ventolin 0.083% Nebulizer Soln -) 1 amp NEB Q4H PRN PRN Reason: SHORT OF BREATH/WHEEZING Albuterol Sulfate (Ventolin 0.083% Nebulizer Soln -) 1 amp NEB QIDR [facility] Last Admin: 03/08/16 06:28 Dose: 1 amp Amlodipine Besylate (Norvasc -) 5 mg PO DAILY [facility] Last Admin: 03/08/16 10:46 Dose: 5 mg Arformoterol Tartrate (Brovana (Restricted To Pulmonology/Resp) -) 1 amp NEB BID [facility] Last Admin: 03/08/16 09:15 Dose: 1 amp Aspirin (Ecotrin -) 81 mg PO DAILY [facility] Last Admin: 03/07/16 11:54 Dose: 81 mg Calcitriol (Rocaltrol -) 0.25 mcg PO DAILY [facility] Last Admin: 03/08/16 10:46 Dose: 0.25 mcg Calcium Acetate (Phoslo -) 667 mg PO TIDCM [facility] Last Admin: 03/08/16 08:53 Dose: 667 mg Duloxetine HCl (Cymbalta -) 20 mg PO DAILY [facility] Last Admin: 03/08/16 10:46 Dose: 20 mg Furosemide (Lasix Injection -) 80 mg IVPB BID@0600,1400 [facility] Last Admin: 03/08/16 06:32 Dose: 80 mg Hydralazine HCl (Apresoline -) 50 mg PO TID [facility] Last Admin: 03/08/16 06:32 Dose: 50 mg Prednisone (Deltasone -) 40 mg PO DAILY [facility] Last Admin: 03/08/16 10:46 Dose: 40 mg Pregabalin (Lyrica -) 25 mg PO DAILY [facility] Last Admin: 03/08/16 10:46 Dose: 25 mg Tiotropium [place] (Spiriva -) 1 puff IH DAILY [facility] Last Admin: 03/08/16 11:29 Dose: 1 inh - Objective Vital Signs: Vital Signs Temperature 97.3 F L 03/08/16 06:00 Pulse Rate 66 03/08/16 09:15 Respiratory Rate 22 03/08/16 06:00 Blood Pressure 162/104 03/08/16 06:00 O2 Sat by Pulse Oximetry (%) 95 03/08/16 09:15 Constitutional: Yes: Anxious Eyes: No: Sclera Icterus HENT: Yes: Atraumatic, Normocephalic Neck: Yes: Supple, Trachea Midline Cardiovascular: Yes: Regular Rate and Rhythm. No: JVD Respiratory: Yes: Diminished (diminished intensity breath sounds bilaterally) Gastrointestinal: Yes: Soft. No: Tenderness Extremities: Yes: Other (dry skin; no drainage) Edema: Yes Edema: LLE: 2+, RLE: 2+ Neurological: Yes: Alert, Oriented, Tremors (both hands and head-due to infection?, meds (bronchodilator)? metabolic (renal) Pt also has family history of Parkinson's (father)) Labs: CBC, BMP 03/08/16 07:05 03/08/16 07:05 INR, PTT INR 1.12 (0.82-1.09) 02/18/16 13:00 Problem List - Problems (1) COPD exacerbation Code(s): J44.1 - CHRONIC OBSTRUCTIVE PULMONARY DISEASE W (ACUTE) EXACERBATION (2) Acute and chronic respiratory failure (eldme-gg-lahuvis) Code(s): J96.20 - ACUTE AND CHR RESP FAILURE, UNSP W HYPOXIA OR HYPERCAPNIA Qualifiers: Respiratory failure complication: hypoxia and hypercapnia Qualified Code(s): J96.21 - Acute and chronic respiratory failure with hypoxia (3) Acute kidney failure Code(s): N17.9 - ACUTE KIDNEY FAILURE, UNSPECIFIED Qualifiers: Acute renal failure type: unspecified Qualified Code(s): N17.9 - Acute kidney failure, unspecified (4) Chronic kidney disease (CKD) Code(s): N18.9 - CHRONIC KIDNEY DISEASE, UNSPECIFIED Qualifiers: Chronic kidney disease stage: unspecified stage Qualified Code(s): N18.9 - Chronic kidney disease, unspecified (5) Cellulitis Code(s): L03.90 - CELLULITIS, UNSPECIFIED Qualifiers: Site of cellulitis of extremity: lower extremity (6) Hyperkalemia Code(s): E87.5 - HYPERKALEMIA (7) Arteriosclerotic heart disease (ASHD) Code(s): I25.10 - ATHSCL HEART DISEASE OF [place] CORONARY ARTERY W/O ANG PCTRS (8) Obesities, morbid Code(s): E66.01 - MORBID (SEVERE) OBESITY DUE TO EXCESS CALORIES Qualifiers: Obesity type: with alveolar hypoventilation Qualified Code(s): E66.2 - Morbid (severe) obesity with alveolar hypoventilation Assessment/Plan Anemia: COPD Acute on chronic hypercapneic respiratory failure-has not needed to use BiPAP last few days CAD; S/P stents; no chest pain or palpitations. CHF/fluid overload remains a large contributing cause for his dyspnea. Pt is s/ p right thoracentesis (600 cc) Fluid is transudative. Cytology and cultures pending Acute Renal Failure Chronic Renal Insufficiency: currently Creatinine is 3.6, BUN 148, Hgb 7.7, K 4.1- renal function gradually returning to his baseline of Creatinine 1.8 Plan: diuretic continued: now on Torsemide fluid restriction Steroid taper in progress inhaled bronchodilator NIPPV prn blood cultures done Monitor blood counts
[2016-03-08] MEDS: ALBUTEROL SO4 0.083% IH SOL 2.5 MG/3 ML VIAL.NEB. NEB PRN (13:30)
--- NOTE | 2016-03-08 13:45 | PN ---
Progress Note (short form) - Note Progress Note: Renal Follow up for KARLOS Pt seen and examined at the bedside sob persists s/p right sided therapeutic thoracentesis Vital Signs Temperature 97.3 F L 03/08/16 06:00 Pulse Rate 66 03/08/16 09:15 Respiratory Rate 22 03/08/16 06:00 Blood Pressure 162/104 03/08/16 06:00 O2 Sat by Pulse Oximetry (%) 95 03/08/16 09:15 Intake & Output 03/05/16 03/06/16 03/07/16 03/08/16 23:59 23:59 23:59 23:59 Intake Total 2819 599 4383 Output Total 1650 1550 2300 600 Balance 105 750 -1300 -600 Weight 319 lb 6 oz 313 lb 6.4 oz Gen: NAD CVS: RRR No M/R Lungs: dec BS throughout the lung rey Abd: Soft NT + Mild distension Ext: > 3+ LE Lymph edema, no cyanosis or clubbing CBC, BMP 03/08/16 07:05 03/08/16 07:05 Current Medications Acetylcysteine (Mucomyst 20 Oral / Inh Use Only*) 200 mg NEB BID [facility] Last Admin: 03/08/16 09:15 Dose: 200 mg Albuterol Sulfate (Ventolin 0.083% Nebulizer Soln -) 1 amp NEB Q4H PRN PRN Reason: SHORT OF BREATH/WHEEZING Albuterol Sulfate (Ventolin 0.083% Nebulizer Soln -) 1 amp NEB QIDR [facility] Last Admin: 03/08/16 06:28 Dose: 1 amp Amlodipine Besylate (Norvasc -) 5 mg PO DAILY [facility] Last Admin: 03/08/16 10:46 Dose: 5 mg Arformoterol Tartrate (Brovana (Restricted To Pulmonology/Resp) -) 1 amp NEB BID [facility] Last Admin: 03/08/16 09:15 Dose: 1 amp Aspirin (Ecotrin -) 81 mg PO DAILY [facility] Last Admin: 03/07/16 11:54 Dose: 81 mg Calcitriol (Rocaltrol -) 0.25 mcg PO DAILY [facility] Last Admin: 03/08/16 10:46 Dose: 0.25 mcg Calcium Acetate (Phoslo -) 667 mg PO TIDCM [facility] Last Admin: 03/08/16 12:48 Dose: 667 mg Duloxetine HCl (Cymbalta -) 20 mg PO DAILY [facility] Last Admin: 03/08/16 10:46 Dose: 20 mg Furosemide (Lasix Injection -) 80 mg IVPB BID@0600,1400 [facility] Last Admin: 03/08/16 06:32 Dose: 80 mg Hydralazine HCl (Apresoline -) 50 mg PO TID [facility] Last Admin: 03/08/16 06:32 Dose: 50 mg Prednisone (Deltasone -) 40 mg PO DAILY [facility] Last Admin: 03/08/16 10:46 Dose: 40 mg Pregabalin (Lyrica -) 25 mg PO DAILY [facility] Last Admin: 03/08/16 10:46 Dose: 25 mg Tiotropium [place] (Spiriva -) 1 puff IH DAILY [facility] Last Admin: 03/08/16 11:29 Dose: 1 inh A/P 75 year old Gentleman with PMhx of CKD Stage 3 (baseline Cr 1.9), Hx of Nephrolithiasis, Hypertension, COPD, CHF, PVD, Chronic LE lymph edema who was sent into the ED from wound care for increased lethargy and decreased urination for several days with KARLOS with BUN/Cr of 115/7.2 and K of 6.5 #Acute Renal Failure on CKD stage 3 Renal function overall improved high bun in setting of steroids and IV Diuretics no indication for [employer] May take several weeks to acheive full recovery of renal function #Fluid overload/LE edema/Pleural effusions/COPD/RSV Change diuretics to Toresemide 40mg PO daily starting tomorrow s/p Thoracenteiss on Prednisone for COPD BIPAP as needed #Hypocalcemia/Hyperphosphatemia/Secondary Hyperparatyrodism Corrected ca is within normal limits now Continue Phoslo continue Calcitriol #Microcytic Anemia Trend CBC s/p prbc transfusion Will given EMMA tomorrow Melvin Johnson DO
--- NOTE | 2016-03-08 15:20 | PN ---
Progress Note, Physician History of Present Illness: patient on nasal canula still with breathing issues had pleural tap done repeat blood cx done - Current Medication List Current Medications: Active Medications Acetylcysteine (Mucomyst 20 Oral / Inh Use Only*) 200 mg NEB BID [facility] Last Admin: 03/08/16 09:15 Dose: 200 mg Albuterol Sulfate (Ventolin 0.083% Nebulizer Soln -) 1 amp NEB Q4H PRN PRN Reason: SHORT OF BREATH/WHEEZING Last Admin: 03/08/16 13:30 Dose: 1 amp Albuterol Sulfate (Ventolin 0.083% Nebulizer Soln -) 1 amp NEB QIDR [facility] Last Admin: 03/08/16 12:00 Dose: 1 amp Amlodipine Besylate (Norvasc -) 5 mg PO DAILY [facility] Last Admin: 03/08/16 10:46 Dose: 5 mg Arformoterol Tartrate (Brovana (Restricted To Pulmonology/Resp) -) 1 amp NEB BID [facility] Last Admin: 03/08/16 09:15 Dose: 1 amp Aspirin (Ecotrin -) 81 mg PO DAILY [facility] Last Admin: 03/07/16 11:54 Dose: 81 mg Calcitriol (Rocaltrol -) 0.25 mcg PO DAILY [facility] Last Admin: 03/08/16 10:46 Dose: 0.25 mcg Calcium Acetate (Phoslo -) 667 mg PO TIDCM [facility] Last Admin: 03/08/16 12:48 Dose: 667 mg Duloxetine HCl (Cymbalta -) 20 mg PO DAILY [facility] Last Admin: 03/08/16 10:46 Dose: 20 mg Epoetin [place] (Procrit -) 20,000 unit SQ ONCE ONE Stop: 03/09/16 10:01 Furosemide (Lasix Injection -) 80 mg IVPB BID@0600,1400 [facility] Last Admin: 03/08/16 06:32 Dose: 80 mg Hydralazine HCl (Apresoline -) 50 mg PO TID [facility] Last Admin: 03/08/16 06:32 Dose: 50 mg Prednisone (Deltasone -) 40 mg PO DAILY [facility] Last Admin: 03/08/16 10:46 Dose: 40 mg Pregabalin (Lyrica -) 25 mg PO DAILY [facility] Last Admin: 03/08/16 10:46 Dose: 25 mg Tiotropium [place] (Spiriva -) 1 puff IH DAILY [facility] Last Admin: 03/08/16 11:29 Dose: 1 inh Torsemide (Demadex -) 40 mg PO DAILY [facility] - Objective Vital Signs: Vital Signs Temperature 98.0 F 03/08/16 15:16 Pulse Rate 106 H 03/08/16 15:16 Respiratory Rate 22 03/08/16 15:16 Blood Pressure 162/104 03/08/16 06:00 O2 Sat by Pulse Oximetry (%) 95 03/08/16 09:15 Constitutional: Yes: No Distress, Calm Cardiovascular: Yes: Regular Rate and Rhythm Respiratory: Yes: Regular, On Nasal O2, Poor Air Entry Gastrointestinal: Yes: Normal Bowel Sounds, Soft, Abdomen, Obese Extremities: Yes: Erythema Edema: LLE: 2+, RLE: 2+ Neurological: Yes: Alert, Oriented Psychiatric: Yes: Alert Labs: CBC, BMP 03/08/16 07:05 03/08/16 07:05 INR, PTT INR 1.12 (0.82-1.09) 02/18/16 13:00 Assessment/Plan 75 year-old man with a PMH of HTN, PVD, COPD, CKD (baseline Cr 1.9), nephrolithiasis, and chronic LE lymphedema. Admitted in acute renal failure. Acute on chronic renal failure Hyperkalemia Sepsis s Hypertension Peripheral vascular disease Hypercarbic respiratory failure COPD bilateral cellulitis of the legs rsv lung infection pleural effusion plan continue current mgmt rest as per primary incentive igor physiotherapy plan for pleural tap from other side
--- NOTE | 2016-03-08 19:57 | PN ---
Physical Exam: SUBJECTIVE: Patient seen and examined at bedside. Breathing is still the same, says he has SOB with little exertion. Denies CP, back pain, abd pain, N/V/F/C. OBJECTIVE: Vital Signs Temperature 98.5 F 03/08/16 16:55 Pulse Rate 98 H 03/08/16 16:55 Respiratory Rate 20 03/08/16 16:55 Blood Pressure 140/65 03/08/16 16:55 O2 Sat by Pulse Oximetry (%) 94 L 03/08/16 16:19 GENERAL: The patient is awake, alert, and fully oriented, in no acute distress. HEAD: Normal with no signs of trauma. EYES: sclera anicteric, conjunctiva clear. No ptosis. ENT: moist mucous membranes. NECK: Trachea midline, full range of motion LUNGS: Diminished breath sounds, mild wheezing b/l HEART: Regular rate and rhythm, S1, S2 without murmur, rub or gallop. ABDOMEN: Obese, Soft, nontender, nondistended, normoactive bowel sounds, no guarding, no rebound, no hepatosplenomegaly, no masses. EXTREMITIES: warm, well-perfused, B/L cellulitic changes, B/L LE 3+ pitting edema and alvarado crusted chronic lesions. NEUROLOGICAL: Normal speech, gait not observed. PSYCH: Normal mood, normal affect. SKIN: Warm, dry, normal turgor, skin changes as noted above in extremities. R back, hematoma much improved, covered with a guaze that is approximately 1.5X1.5 inches. Laboratory Results - last 24 hr 03/07/16 03/07/16 03/08/16 18:49 23:30 07:05 WBC 9.3 7.9 RBC 3.11 L 2.88 L Hgb 7.7 L 7.7 L Hct 24.8 L 23.0 L MCV 79.7 L 79.7 L MCHC 30.9 L 33.4 RDW 20.8 H 21.0 H Plt Count 209 184 MPV 7.8 7.8 Hypochromic-Microcytic 1+ Anisocytosis 2+ Ovalocytes 1+ Rouleaux 2+ Sodium Potassium Chloride Carbon Dioxide Anion Gap BUN Creatinine Random Glucose Calcium Phosphorus Magnesium Blood Type Antibody Screen 03/08/16 03/08/16 07:05 10:15 WBC RBC Hgb Hct MCV MCHC RDW Plt Count MPV Hypochromic-Microcytic Anisocytosis Ovalocytes Rouleaux Sodium 144 Potassium 4.0 Chloride 99 Carbon Dioxide 27 Anion Gap 18 H BUN 148 H* Creatinine 3.6 H Random Glucose 177 H Calcium 8.0 L Phosphorus 6.6 H Magnesium 2.6 H Blood Type A POSITIVE Antibody Screen Negative Microbiology 03/07/16 15:30 Pleural Fluid ALANA Preparation - Preliminary 03/07/16 15:30 Pleural Fluid Fungal Culture - Preliminary 03/07/16 15:30 Pleural Fluid AFB Smear Concentration - Preliminary 03/07/16 15:30 Pleural Fluid Mycobacterial Culture - Preliminary 02/29/16 17:40 Nasopharyngeal Swab Respiratory Virus Panel - Final 02/25/16 17:30 Blood - Peripheral Venous Blood Culture - Final NO GROWTH AFTER 5 DAYS INCUBATION 02/25/16 17:30 Blood - Peripheral Venous Blood Culture - Final NO GROWTH AFTER 5 DAYS INCUBATION 02/28/16 17:40 Nasopharyngeal Swab Influenza Types A,B Antigen (TONI) - Final 02/28/16 17:40 Nasopharyngeal Swab - Final 02/26/16 06:45 Urine - Urine Clean Catch Urine Culture - Final NO GROWTH OBTAINED 02/18/16 19:15 Blood - Peripheral Venous Blood Culture - Final NO GROWTH AFTER 5 DAYS INCUBATION 02/18/16 19:15 Blood - Peripheral Venous Blood Culture - Final NO GROWTH AFTER 5 DAYS INCUBATION 02/18/16 18:10 Urine - Urine Clean Catch Urine Culture - Final NO GROWTH OBTAINED Active Medications Generic Name Dose Route Start Last Admin Trade Name Freq PRN Reason Stop Dose Admin Acetylcysteine 200 mg 02/26/16 10:00 03/08/16 09:15 Mucomyst 20 Oral / Inh Use Only* NEB 200 mg BID [facility] Administration Albuterol Sulfate 1 amp 03/06/16 16:01 03/08/16 13:30 Ventolin 0.083% Nebulizer Soln - NEB 1 amp Q4H PRN Administration SHORT OF BREATH/WHEEZING Albuterol Sulfate 1 amp 03/06/16 18:00 03/08/16 18:56 Ventolin 0.083% Nebulizer Soln - NEB 1 amp QIDR [facility] Administration Amlodipine Besylate 5 mg 03/08/16 10:00 03/08/16 10:46 Norvasc - PO 5 mg DAILY [facility] Administration Arformoterol Tartrate 1 amp 02/23/16 22:00 03/08/16 09:15 Brovana (Restricted To Pulmonology/Resp) - NEB 1 amp BID [facility] Administration Aspirin 81 mg 02/24/16 10:00 03/07/16 11:54 Ecotrin - PO 81 mg DAILY [facility] Administration Calcitriol 0.25 mcg 02/24/16 12:45 03/08/16 10:46 Rocaltrol - PO 0.25 mcg DAILY [facility] Administration Calcium Acetate 667 mg 02/23/16 17:30 03/08/16 18:00 Phoslo - PO 667 mg TIDCM [facility] Administration Duloxetine HCl 20 mg 02/24/16 10:00 03/08/16 10:46 Cymbalta - PO 20 mg DAILY [facility] Administration Epoetin [place] 20,000 unit 03/09/16 10:00 Procrit - SQ 03/09/16 10:01 ONCE ONE Furosemide 80 mg 03/03/16 14:00 03/08/16 15:45 Lasix Injection - IVPB 80 mg BID@0600,1400 [facility] Administration Hydralazine HCl 50 mg 02/28/16 22:00 03/08/16 15:45 Apresoline - PO 50 mg TID [facility] Administration Prednisone 40 mg 03/08/16 10:00 03/08/16 10:46 Deltasone - PO 40 mg DAILY [facility] Administration Pregabalin 25 mg 03/02/16 11:15 03/08/16 10:46 Lyrica - PO 25 mg DAILY [facility] Administration Tiotropium [place] 1 puff 02/22/16 11:15 03/08/16 11:29 Spiriva - IH 1 inh DAILY [facility] Administration Torsemide 40 mg 03/09/16 10:00 Demadex - PO DAILY [facility] ASSESSMENT/PLAN: 75 year-old man with a PMH of HTN, PVD, COPD, CKD (baseline Cr 1.9), nephrolithiasis, and chronic LE lymphedema. Admitted for acute renal failure ( hyperkalemia) and respiratory distress. # Acute on chronic renal failure -drinking water and snapple. Told to limit to 1L per day due to SOB. -Today BUN/Cr 148/3.6 (baseline 1.8-1.9), creatinine improving slowly off HD. -off lasix iv bid 80 mg -now on torsemide 40 mg po qd # Acute COPD exacerbation with hypercapnic respiratory failure -SOB with minimal exertion -brovana, albuterol neb q4h PRN, albuterol neb standing qid -prednisone 40 mg qd -will switch to prednisone 30 mg tomorrow; taper #SOB -Resp virus panel - RSV positive -diuresis with torsemide 40 mg po qd -R thoracentesis done today. 800 cc fluid removed. -fluid analysis: WBC 232, RBC: 1940, total protein: 2.184, LDH: 91.591, glucose: 215.755, amylase 8.508. -L thoracentesis will need to be done later (5 days) due to hematoma from R thoracentesis. -BiPap added for use at night. #Hematoma -Improving since initial presentation after thoracentesis -CBC for tomorrow AM -monitor, if Hgb <7, transfuse. # Anemia, microcytic -Anemia of chronic disease secondary to CKD, TIBC low -Hgb 7.7 (s/p 1 unit PRBC this admission); stable -Transfuse if Hgb <7. -procrit 72073 units tomorrow # Sepsis secondary to B/L lower extremity cellulitis -resolved -off abx # HTN -hydralazine 50 mg PO TID -norvasc 5 mg po qd added #. CHF (diastolic) -torsemide 40 mg qd -Causing his LE edema most likely -will get B/L LE duplex to r/o PE # Hx of Depression -c/w cymbalta #neuropathy -lyrica 25 mg PO qd -still having sharp electric pain in feet. Consider increasing lyrica. CrCl is 36 # CAD -prasugrel 10 mg PO qd #. FEN -hypocalcemia -c/w calcitriol - f/u BMP # Dispo: monitor on floors. Physiotherapy. Problem List - Problems (1) Acute kidney failure Code(s): N17.9 - ACUTE KIDNEY FAILURE, UNSPECIFIED Qualifiers: Acute renal failure type: unspecified Qualified Code(s): N17.9 - Acute kidney failure, unspecified (2) COPD exacerbation Code(s): J44.1 - CHRONIC OBSTRUCTIVE PULMONARY DISEASE W (ACUTE) EXACERBATION (3) Hyperkalemia Code(s): E87.5 - HYPERKALEMIA (4) Acute and chronic respiratory failure ([id number]) Code(s): J96.20 - ACUTE AND CHR RESP FAILURE, UNSP W HYPOXIA OR HYPERCAPNIA Qualifiers: Respiratory failure complication: hypoxia and hypercapnia Qualified Code(s): J96.21 - Acute and chronic respiratory failure with hypoxia (5) Acute exacerbation of chronic obstructive pulmonary disease (COPD) Code(s): J44.1 - CHRONIC OBSTRUCTIVE PULMONARY DISEASE W (ACUTE) EXACERBATION (6) Acute on chronic diastolic (congestive) heart failure Code(s): I50.33 - ACUTE ON CHRONIC DIASTOLIC (CONGESTIVE) HEART FAILURE (7) Anxiety and depression Code(s): F41.9 - ANXIETY DISORDER, UNSPECIFIED F32.9 - MAJOR DEPRESSIVE DISORDER, SINGLE EPISODE, UNSPECIFIED (8) Cellulitis Code(s): L03.90 - CELLULITIS, UNSPECIFIED Qualifiers: Site of cellulitis of extremity: lower extremity (9) Chronic kidney disease (CKD) Code(s): N18.9 - CHRONIC KIDNEY DISEASE, UNSPECIFIED Qualifiers: Chronic kidney disease stage: unspecified stage Qualified Code(s): N18.9 - Chronic kidney disease, unspecified (10) Diastolic CHF Code(s): I50.30 - UNSPECIFIED DIASTOLIC (CONGESTIVE) HEART FAILURE (11) Hyperlipidemia Code(s): E78.5 - HYPERLIPIDEMIA, UNSPECIFIED (12) Hypertension Code(s): I10 - ESSENTIAL (PRIMARY) HYPERTENSION (13) Obesities, morbid Code(s): E66.01 - MORBID (SEVERE) OBESITY DUE TO EXCESS CALORIES Qualifiers: Obesity type: with alveolar hypoventilation Qualified Code(s): E66.2 - Morbid (severe) obesity with alveolar hypoventilation (14) Respiratory failure with hypoxia and hypercapnia Code(s): J96.91 - RESPIRATORY FAILURE, UNSPECIFIED WITH HYPOXIA J96.92 - RESPIRATORY FAILURE, UNSPECIFIED WITH HYPERCAPNIA Qualifiers: Chronicity: acute on chronic Qualified Code(s): J96.21 - Acute and chronic respiratory failure with hypoxia; J96.22 - Acute and chronic respiratory failure with hypercapnia (15) Shortness of breath Code(s): R06.02 - SHORTNESS OF BREATH (16) Hematoma Code(s): T14.8 - OTHER INJURY OF UNSPECIFIED BODY REGION Visit type - Emergency Visit Emergency Visit: Yes ED Registration Date: 02/18/16 Care time: The patient presented to the Emergency Department on the above date and was hospitalized for further evaluation of their emergent condition. - New Patient This patient is new to me today: No - Critical Care Critical Care patient: No
--- NOTE | 2016-03-08 20:24 | PN ---
Teaching Attending Note Name of Resident: Freddie Strickland ATTENDING PHYSICIAN STATEMENT I saw and evaluated the patient. I reviewed the resident's note and discussed the case with the resident. I agree with the resident's findings and plan as documented. SUBJECTIVE: cont to have SOB with minimal exertion OBJECTIVE: NAD Cv : RRR Lungs : decreased breath sounds at bases , no wheezes ext : 3 + pitting edema , and thick skin with no discharge ASSESSMENT AND PLAN: 75 year-old man with a PMHx of HTN, PVD, COPD, CKD (baseline Cr 1.8), nephrolithiasis, D CHF , CAD s/p stenting in 03/23 and chronic LE lymphedema. presented with SOB and was found to have acute hypercapnic resp failure with acute renal failure . 1- acute hypercapnic resp failure due to COPD exa and diastolic heart failure. pleural effusions contributing - switched to torsemide - monitor weight - s/p R pleurocentesis yesterday with oozing from site . - scheduled for L pleurocentesis on Sunday , effient and asa on hold will clarify with Dr. Chadwick as ABDON was done in 03/23 - day 1 on 40 mg of prednisone , will give another day ans then decrease dose 2- cellultis of LE :reoslved . off abx now 3- KARLOS on CKD: off HD .stable Cr 4- microcytic anemia . - no evidence of iron def ( ACD ) -s/p transfusion. transfuse as needed 5- uncontrolled HTN: cont HZN TID . norvasc added 6- HLOC
[2016-03-09] MEDS: ALBUTEROL SO4 0.083% IH SOL 2.5 MG/3 ML VIAL.NEB. NEB SCH ×4 (06:10→19:01)
[2016-03-09] MEDS: hydrALAZINE HCL 50 MG TABLET (FP) PO SCH ×3 (06:23→21:39)
[2016-03-09 08:12] LABS: MCHC 32.2 g/dl (32.0-35.9); MEAN CELL VOLUME 80.7 fl (80-96); MEAN PLT VOLUME 7.7 fl (7.5-11.1); NEUTROPHILS 81.5 % (42.8-82.8); PLATELET COUNT 168 K/MM3 (134-434); RDW 20.8 % (11.9-15.9); WHITE BLOOD COUNT 9.3 K/mm3 (4.0-10.0)
[2016-03-09] MEDS: CALCIUM ACETATE 667 MG CAPSULE (FP) PO SCH ×3 (08:43→18:00)
[2016-03-09 08:52] LABS: CALCIUM 8.2 mg/dL (8.5-10.1); CREATININE 3.5 mg/dL (0.7-1.3); MAGNESIUM 2.6 mg/dL (1.8-2.4); PHOSPHOROUS 6.4 mg/dL (2.5-4.9)
--- NOTE | 2016-03-09 09:32 | PN ---
Progress Note, Physician Chief Complaint: feels much better today - Current Medication List Current Medications: Active Medications Acetylcysteine (Mucomyst 20 Oral / Inh Use Only*) 200 mg NEB BID [facility] Last Admin: 03/08/16 22:20 Dose: 200 mg Albuterol Sulfate (Ventolin 0.083% Nebulizer Soln -) 1 amp NEB Q4H PRN PRN Reason: SHORT OF BREATH/WHEEZING Last Admin: 03/08/16 13:30 Dose: 1 amp Albuterol Sulfate (Ventolin 0.083% Nebulizer Soln -) 1 amp NEB QIDR [facility] Last Admin: 03/09/16 06:10 Dose: 1 amp Amlodipine Besylate (Norvasc -) 5 mg PO DAILY [facility] Last Admin: 03/08/16 10:46 Dose: 5 mg Arformoterol Tartrate (Brovana (Restricted To Pulmonology/Resp) -) 1 amp NEB BID [facility] Last Admin: 03/08/16 22:20 Dose: 1 amp Calcitriol (Rocaltrol -) 0.25 mcg PO DAILY [facility] Last Admin: 03/08/16 10:46 Dose: 0.25 mcg Calcium Acetate (Phoslo -) 667 mg PO TIDCM [facility] Last Admin: 03/09/16 08:43 Dose: 667 mg Duloxetine HCl (Cymbalta -) 20 mg PO DAILY [facility] Last Admin: 03/08/16 10:46 Dose: 20 mg Epoetin [place] (Procrit -) 20,000 unit SQ ONCE ONE Stop: 03/09/16 10:01 Hydralazine HCl (Apresoline -) 50 mg PO TID [facility] Last Admin: 03/09/16 06:23 Dose: 50 mg Prednisone (Deltasone -) 40 mg PO DAILY [facility] Pregabalin (Lyrica -) 25 mg PO DAILY [facility] Last Admin: 03/08/16 10:46 Dose: 25 mg Tiotropium [place] (Spiriva -) 1 puff IH DAILY [facility] Last Admin: 03/08/16 11:29 Dose: 1 inh Torsemide (Demadex -) 40 mg PO DAILY [facility] - Objective Vital Signs: Vital Signs Temperature 97.4 F L 03/09/16 06:00 Pulse Rate 87 03/09/16 06:00 Respiratory Rate 22 03/09/16 06:00 Blood Pressure 152/71 03/09/16 06:00 O2 Sat by Pulse Oximetry (%) 94 L 03/08/16 16:19 Constitutional: Yes: No Distress Cardiovascular: Yes: Regular Rate and Rhythm Respiratory: Yes: Other (decreased breath sounds bilaterally) Gastrointestinal: Yes: Soft, Abdomen, Obese Edema: Yes Edema: LLE: 2+, RLE: 2+ Neurological: Yes: Alert, Oriented Labs: CBC, BMP 03/09/16 06:30 03/09/16 06:30 INR, PTT INR 1.12 (0.82-1.09) 02/18/16 13:00 Microbiology Laboratory Tests 03/09/16 03/09/16 06:30 06:30 WBC 9.3 Hgb 7.2 L Hct 22.5 L Plt Count 168 Potassium 3.8 BUN 145 H* Creatinine 3.5 H Magnesium 2.6 H Assessment/Plan Assessment/Plan 75 year old man with a history of HTN, COPD on home O2, Chronic combined systolic/diastolic CHF, CKD, JOY, CAD moderate LV systolic dysfunction, cardiac cath 03/2015 showed 2VD with RCA and LAD disease. He underwent PCI with ABDON of RCA 03/2015 and staged PCI of LAD in 04/2015 with significant improvement in symptoms. He has been feeling well since then, now admitted with cellulitis, sepsis, TARYN on CKD and sob S/p thoracentesis: -Watch H/H -Hold Effient. ASA now also held due to slight drop in H/H. Resume when feasible. -Transfuse as needed Chills: -afebrile, but on steroids -will send cultures, pending. HTN: -added Norvasc 5mg daily on 03/08- BP trend improved Chronic diastolic CHF NYHA class IV, LV systolic function normalized post PCI: -on lasix, renal following. -monitor I/Os -monitor BUN/Creat, electrolytes, keep k=4, Mg=2 -not on bblocker due to severe COPD -not on PIPER-I currently due to fluctuating renal function -echo showed normal LV systolic function, no sig valvular abnl CAD-PCI with ABDON of RCA 03/2015 and staged PCI of LAD in 04/2015 -temporarily holding effient and ASA as oozing from thoracentesis site -cont lipitor Anemia- guaiac negative. -Transfused this admission -Follow H/H -further work up as per PMD Acute on chronic CKD- -creatinine improved since admission, seems to have stabilized -renal following.
[2016-03-09] MEDS: ARFORMOTEROL TARTRATE 15 MCG/2 ML VIAL NEB SCH ×2 (10:00→22:21)
[2016-03-09] MEDS ORDERED: predniSONE 10 MG TABLET (UD) PO SCH (10:00)
[2016-03-09] MEDS: ACETYLCYSTEINE 20% 200MG/ML 4 ML VIAL *FOR ORAL / INH USE ONLY NEB SCH ×2 (10:00→22:23)
[2016-03-09] MEDS ORDERED: predniSONE 20 MG TABLET (UD) PO SCH (10:00)
[2016-03-09] MEDS ORDERED: EPOETIN ALFA 20,000 UNIT/1 ML VIAL SQ ONE (10:00)
[2016-03-09] MEDS ORDERED: PT OWN MED DRAWER 7, Y5N ONE (10:41)
[2016-03-09] MEDS: TORSEMIDE 20 MG TABLET (FP) PO SCH (10:42)
[2016-03-09] MEDS: PREGABALIN 25 MG CAPSULE PO SCH (10:43)
[2016-03-09] MEDS: amLODIPine BESYLATE 5 MG TABLET (FP) PO SCH (10:43)
[2016-03-09] MEDS: CALCITRIOL 0.25 MCG CAPSULE (FP) PO SCH (10:43)
[2016-03-09] MEDS: DULoxetine HCL 20 MG CAPSULE.DR (FP) PO SCH (10:44)
[2016-03-09] MEDS: TIOTROPIUM BROMIDE 18 MCG/INH (DEVICE W/ 5 CAPSULES) IH SCH (10:45)
--- NOTE | 2016-03-09 14:04 | PN ---
Progress Note, Physician History of Present Illness: patient on nasal canula feels much better walked today says finally he feels better - Current Medication List Current Medications: Active Medications Acetylcysteine (Mucomyst 20 Oral / Inh Use Only*) 200 mg NEB BID [facility] Last Admin: 03/09/16 10:00 Dose: 200 mg Albuterol Sulfate (Ventolin 0.083% Nebulizer Soln -) 1 amp NEB Q4H PRN PRN Reason: SHORT OF BREATH/WHEEZING Last Admin: 03/08/16 13:30 Dose: 1 amp Albuterol Sulfate (Ventolin 0.083% Nebulizer Soln -) 1 amp NEB QIDR [facility] Last Admin: 03/09/16 11:50 Dose: 1 amp Amlodipine Besylate (Norvasc -) 5 mg PO DAILY [facility] Last Admin: 03/09/16 10:43 Dose: 5 mg Arformoterol Tartrate (Brovana (Restricted To Pulmonology/Resp) -) 1 amp NEB BID [facility] Last Admin: 03/09/16 10:00 Dose: 1 amp Calcitriol (Rocaltrol -) 0.25 mcg PO DAILY [facility] Last Admin: 03/09/16 10:43 Dose: 0.25 mcg Calcium Acetate (Phoslo -) 667 mg PO TIDCM [facility] Last Admin: 03/09/16 12:32 Dose: 667 mg Duloxetine HCl (Cymbalta -) 20 mg PO DAILY [facility] Last Admin: 03/09/16 10:44 Dose: 20 mg Hydralazine HCl (Apresoline -) 50 mg PO TID [facility] Last Admin: 03/09/16 06:23 Dose: 50 mg Prednisone (Deltasone -) 40 mg PO DAILY [facility] Last Admin: 03/09/16 10:43 Dose: 40 mg Pregabalin (Lyrica -) 25 mg PO DAILY [facility] Last Admin: 03/09/16 10:43 Dose: 25 mg Tiotropium [place] (Spiriva -) 1 puff IH DAILY [facility] Last Admin: 03/09/16 10:45 Dose: 1 inh Torsemide (Demadex -) 40 mg PO DAILY [facility] Last Admin: 03/09/16 10:42 Dose: 40 mg - Objective Vital Signs: Vital Signs Temperature 97.4 F L 03/09/16 06:00 Pulse Rate 92 H 03/09/16 10:00 Respiratory Rate 22 03/09/16 06:00 Blood Pressure 152/71 03/09/16 06:00 O2 Sat by Pulse Oximetry (%) 96 03/09/16 10:00 Constitutional: Yes: No Distress, Calm Cardiovascular: Yes: Regular Rate and Rhythm Respiratory: Yes: Regular, CTA Bilaterally Gastrointestinal: Yes: Normal Bowel Sounds, Soft Musculoskeletal: Yes: WNL Extremities: Yes: WNL Neurological: Yes: Alert, Oriented Labs: CBC, BMP 03/09/16 06:30 03/09/16 06:30 INR, PTT INR 1.12 (0.82-1.09) 02/18/16 13:00 Assessment/Plan 75 year-old man with a PMH of HTN, PVD, COPD, CKD (baseline Cr 1.9), nephrolithiasis, and chronic LE lymphedema. Admitted in acute renal failure. Acute on chronic renal failure Hyperkalemia Sepsis s Hypertension Peripheral vascular disease Hypercarbic respiratory failure COPD bilateral cellulitis of the legs rsv lung infection pleural effusion plan continue current mgmt rest as per primary incentive igor physiotherapy
--- NOTE | 2016-03-09 16:47 | PN ---
Progress Note (short form) - Note Progress Note: Renal Follow up for KARLOS Pt seen and examined at the bedside feels better today was able to ambulate more today no chest pain, sob is improved Vital Signs Temperature 98.1 F 03/09/16 15:57 Pulse Rate 96 H 03/09/16 15:57 Respiratory Rate 22 03/09/16 15:57 Blood Pressure 142/69 03/09/16 15:57 O2 Sat by Pulse Oximetry (%) 96 03/09/16 10:00 Gen: NAD CVS: RRR No M/R Lungs: dec BS throughout the lung rey Abd: Soft NT + Mild distension Ext: > 3+ LE Lymph edema, no cyanosis or clubbing CBC, BMP 03/09/16 06:30 03/09/16 06:30 Laboratory Tests 03/09/16 06:30 Calcium 8.2 L Phosphorus 6.4 H Magnesium 2.6 H Current Medications Acetylcysteine (Mucomyst 20 Oral / Inh Use Only*) 200 mg NEB BID [facility] Last Admin: 03/09/16 10:00 Dose: 200 mg Albuterol Sulfate (Ventolin 0.083% Nebulizer Soln -) 1 amp NEB Q4H PRN PRN Reason: SHORT OF BREATH/WHEEZING Last Admin: 03/08/16 13:30 Dose: 1 amp Albuterol Sulfate (Ventolin 0.083% Nebulizer Soln -) 1 amp NEB QIDR [facility] Last Admin: 03/09/16 11:50 Dose: 1 amp Amlodipine Besylate (Norvasc -) 5 mg PO DAILY [facility] Last Admin: 03/09/16 10:43 Dose: 5 mg Arformoterol Tartrate (Brovana (Restricted To Pulmonology/Resp) -) 1 amp NEB BID [facility] Last Admin: 03/09/16 10:00 Dose: 1 amp Calcitriol (Rocaltrol -) 0.25 mcg PO DAILY [facility] Last Admin: 03/09/16 10:43 Dose: 0.25 mcg Calcium Acetate (Phoslo -) 667 mg PO TIDCM [facility] Last Admin: 03/09/16 12:32 Dose: 667 mg Duloxetine HCl (Cymbalta -) 20 mg PO DAILY [facility] Last Admin: 03/09/16 10:44 Dose: 20 mg Hydralazine HCl (Apresoline -) 50 mg PO TID [facility] Last Admin: 03/09/16 15:17 Dose: 50 mg Prednisone (Deltasone -) 40 mg PO DAILY [facility] Last Admin: 03/09/16 10:43 Dose: 40 mg Pregabalin (Lyrica -) 25 mg PO DAILY [facility] Last Admin: 03/09/16 10:43 Dose: 25 mg Tiotropium [place] (Spiriva -) 1 puff IH DAILY [facility] Last Admin: 03/09/16 10:45 Dose: 1 inh Torsemide (Demadex -) 40 mg PO DAILY [facility] Last Admin: 03/09/16 10:42 Dose: 40 mg A/P 75 year old Gentleman with PMhx of CKD Stage 3 (baseline Cr 1.9), Hx of Nephrolithiasis, Hypertension, COPD, CHF, PVD, Chronic LE lymph edema who was sent into the ED from wound care for increased lethargy and decreased urination for several days with KARLOS with BUN/Cr of 115/7.2 and K of 6.5 #Acute Renal Failure on CKD stage 3 Renal function stable High bun secondary to steroids +/- diuretics continue Torsemide no indication for [employer] #Fluid overload/LE edema/Pleural effusions/COPD/RSV Continue Torsemide Daily s/p Thoracenteiss on Prednisone for COPD BIPAP as needed #Hypocalcemia/Hyperphosphatemia/Secondary Hyperparatyrodism Corrected ca is within normal limits now Increase Phoslo to 1334 TID with meals with goal phos < 5.5 continue Calcitriol #Microcytic Anemia Trend CBC s/p prbc transfusion s/p Epogen 91801 units today Melvin Johnson DO
--- NOTE | 2016-03-09 17:23 | PN ---
Teaching Attending Note Name of Resident: Freddie Strickland ATTENDING PHYSICIAN STATEMENT I saw and evaluated the patient. I reviewed the resident's note and discussed the case with the resident. I agree with the resident's findings and plan as documented. SUBJECTIVE: for the first time during this admission he feels better , denies any SOB , walked few feet without SOB . used bIPAP last night urinated a lot today OBJECTIVE: NAD Cv : RRR Lungs : decreased breath sounds at bases , no wheezes , minimal fine crackles b /l ext : 3 + pitting edema , and thick skin with no discharge ASSESSMENT AND PLAN: 75 year-old man with a PMHx of HTN, PVD, COPD, CKD (baseline Cr 1.8), nephrolithiasis, D CHF , CAD s/p stenting in 03/23 and chronic LE lymphedema. presented with SOB and was found to have acute hypercapnic resp failure with acute renal failure . 1- acute hypercapnic resp failure due to COPD exa and diastolic heart failure. pleural effusions contributing - for first time during the admission , he felt better and could ambulate without SOB. - cont BIPAp q HS ( strict ) , and demadex - s/p R pleurocentesis 03/07 . ? possible L thoracocentesis on Sunday , but if improving , may be we can avoid - cont to hold asa. might resume tomorrow - decrease steroids to 30 for am dose 2- cellultis of LE :reoslved . off abx now blood cx repeated 3- KARLOS on CKD: off HD .stable Cr on cacitriol and phoslo 4- microcytic anemia. - no evidence of iron def ( ACD ) -s/p transfusion. transfuse as needed 5- uncontrolled HTN: cont HZN and norvasc 6- HLOC
--- NOTE | 2016-03-09 17:51 | PN ---
Progress Note, Physician History of Present Illness: Pt used BIPAP last night and feels better today (he has a BIPAP at home-I have spent 2 years trying to get him to use it!). No chest pain or palpitations. He was able to walk 2-3 steps today. - Current Medication List Current Medications: Active Medications Acetaminophen (Tylenol -) 650 mg PO Q6H PRN PRN Reason: FEVER OR PAIN Acetylcysteine (Mucomyst 20 Oral / Inh Use Only*) 200 mg NEB BID [facility] Last Admin: 03/09/16 10:00 Dose: 200 mg Albuterol Sulfate (Ventolin 0.083% Nebulizer Soln -) 1 amp NEB Q4H PRN PRN Reason: SHORT OF BREATH/WHEEZING Last Admin: 03/08/16 13:30 Dose: 1 amp Albuterol Sulfate (Ventolin 0.083% Nebulizer Soln -) 1 amp NEB QIDR [facility] Last Admin: 03/09/16 11:50 Dose: 1 amp Amlodipine Besylate (Norvasc -) 5 mg PO DAILY [facility] Last Admin: 03/09/16 10:43 Dose: 5 mg Arformoterol Tartrate (Brovana (Restricted To Pulmonology/Resp) -) 1 amp NEB BID [facility] Last Admin: 03/09/16 10:00 Dose: 1 amp Calcitriol (Rocaltrol -) 0.25 mcg PO DAILY [facility] Last Admin: 03/09/16 10:43 Dose: 0.25 mcg Calcium Acetate (Phoslo -) 667 mg PO TIDCM [facility] Last Admin: 03/09/16 12:32 Dose: 667 mg Duloxetine HCl (Cymbalta -) 20 mg PO DAILY [facility] Last Admin: 03/09/16 10:44 Dose: 20 mg Hydralazine HCl (Apresoline -) 50 mg PO TID [facility] Last Admin: 03/09/16 15:17 Dose: 50 mg Prednisone (Deltasone -) 30 mg PO DAILY [facility] Pregabalin (Lyrica -) 25 mg PO DAILY [facility] Last Admin: 03/09/16 10:43 Dose: 25 mg Tiotropium [place] (Spiriva -) 1 puff IH DAILY [facility] Last Admin: 03/09/16 10:45 Dose: 1 inh Torsemide (Demadex -) 40 mg PO DAILY [facility] Last Admin: 03/09/16 10:42 Dose: 40 mg - Objective Vital Signs: Vital Signs Temperature 98.1 F 03/09/16 15:57 Pulse Rate 96 H 03/09/16 15:57 Respiratory Rate 22 03/09/16 15:57 Blood Pressure 142/69 03/09/16 15:57 O2 Sat by Pulse Oximetry (%) 96 03/09/16 10:00 Constitutional: Yes: No Distress Eyes: No: Sclera Icterus HENT: Yes: Atraumatic, Normocephalic Neck: Yes: Supple, Trachea Midline Cardiovascular: Yes: Regular Rate and Rhythm. No: JVD Respiratory: Yes: Rales (few rales at both bases) Gastrointestinal: Yes: Soft. No: Tenderness Edema: Yes Edema: LLE: 3+, RLE: 3+ (lympedema) Neurological: Yes: Alert, Oriented Labs: CBC, BMP 03/09/16 06:30 03/09/16 06:30 INR, PTT INR 1.12 (0.82-1.09) 02/18/16 13:00 Problem List - Problems (1) COPD exacerbation Code(s): J44.1 - CHRONIC OBSTRUCTIVE PULMONARY DISEASE W (ACUTE) EXACERBATION (2) Acute and chronic respiratory failure ([id number]) Code(s): J96.20 - ACUTE AND CHR RESP FAILURE, UNSP W HYPOXIA OR HYPERCAPNIA Qualifiers: Respiratory failure complication: hypoxia and hypercapnia Qualified Code(s): J96.21 - Acute and chronic respiratory failure with hypoxia (3) Acute kidney failure Code(s): N17.9 - ACUTE KIDNEY FAILURE, UNSPECIFIED Qualifiers: Acute renal failure type: unspecified Qualified Code(s): N17.9 - Acute kidney failure, unspecified (4) Chronic kidney disease (CKD) Code(s): N18.9 - CHRONIC KIDNEY DISEASE, UNSPECIFIED Qualifiers: Chronic kidney disease stage: unspecified stage Qualified Code(s): N18.9 - Chronic kidney disease, unspecified (5) Cellulitis Code(s): L03.90 - CELLULITIS, UNSPECIFIED Qualifiers: Site of cellulitis of extremity: lower extremity (6) Hyperkalemia Code(s): E87.5 - HYPERKALEMIA (7) Arteriosclerotic heart disease (ASHD) Code(s): I25.10 - ATHSCL HEART DISEASE OF [place] CORONARY ARTERY W/O ANG PCTRS (8) Obesities, morbid Code(s): E66.01 - MORBID (SEVERE) OBESITY DUE TO EXCESS CALORIES Qualifiers: Obesity type: with alveolar hypoventilation Qualified Code(s): E66.2 - Morbid (severe) obesity with alveolar hypoventilation Assessment/Plan Anemia: COPD Acute on chronic hypercapneic respiratory failure-improved probably secondary to using BIPAP last night CAD; S/P stents; no chest pain or palpitations. CHF/fluid overload . Pt is s/p right thoracentesis (600 cc) Fluid is transudative. Cytology and cultures pending Acute Renal Failure Chronic Renal Insufficiency: currently Creatinine is 3.5, BUN 145, Hgb 7.2, K 3.8- renal function gradually returning to his baseline of Creatinine 1.8 Plan: diuretic continued: now on Torsemide fluid restriction Steroid taper in progress inhaled bronchodilator NIPPV nightly Monitor blood counts
[2016-03-09] MEDS: predniSONE 20 MG TABLET (UD) PO SCH (18:00)
--- NOTE | 2016-03-09 19:22 | PN ---
Physical Exam: SUBJECTIVE: Patient seen and examined sitting in chair at bedside. States he feels better today. Breathing is improved and was able to take a few steps without SOB today. He also feels like his legs are improving. Used bipap overnight and will use it again tonight. He denies N/V/F/C, CP, SOB at rest, abd pain. OBJECTIVE: Vital Signs Temperature 98.5 F 03/09/16 18:06 Pulse Rate 99 H 03/09/16 18:06 Respiratory Rate 20 03/09/16 18:06 Blood Pressure 155/65 03/09/16 18:06 O2 Sat by Pulse Oximetry (%) 94 L 03/09/16 19:00 GENERAL: The patient is awake, alert, and fully oriented, in no acute distress. HEAD: Normal with no signs of trauma. EYES: sclera anicteric, conjunctiva clear. No ptosis. ENT: moist mucous membranes. NECK: Trachea midline, full range of motion LUNGS: Diminished breath sounds, bibasilar crackles. HEART: Regular rate and rhythm, S1, S2 without murmur, rub or gallop. ABDOMEN: Obese, Soft, nontender, nondistended, normoactive bowel sounds, no guarding, no rebound, no hepatosplenomegaly, no masses. EXTREMITIES: warm, well-perfused, B/L cellulitic changes, B/L LE 3+ pitting edema and alvarado crusted lesions. NEUROLOGICAL: Normal speech, gait not observed. PSYCH: Normal mood, normal affect. SKIN: Warm, dry, normal turgor, skin changes as noted above in extremities. R back, hematoma much improved Laboratory Results - last 24 hr 03/09/16 03/09/16 06:30 06:30 WBC 9.3 RBC 2.78 L Hgb 7.2 L Hct 22.5 L MCV 80.7 MCHC 32.2 RDW 20.8 H Plt Count 168 MPV 7.7 Neutrophils % 81.5 Lymphocytes % 6.8 L D Monocytes % 11.7 H Eosinophils % 0.0 Basophils % 0.0 Sodium 144 Potassium 3.8 Chloride 100 Carbon Dioxide 25 Anion Gap 19 H BUN 145 H* Creatinine 3.5 H Random Glucose 150 H Calcium 8.2 L Phosphorus 6.4 H Magnesium 2.6 H Microbiology 03/07/16 15:30 Pleural Fluid Gram Stain - Final 03/07/16 15:30 Pleural Fluid Body Fluid Culture - Preliminary NO AEROBIC GROWTH, 24 HRS 03/08/16 10:15 Blood - Peripheral Venous Blood Culture - Preliminary NO GROWTH OBTAINED AFTER 24 HOURS, INCUBATION TO CONTINUE FOR 4 DAYS. 03/08/16 10:15 Blood - Peripheral Venous Blood Culture - Preliminary NO GROWTH OBTAINED AFTER 24 HOURS, INCUBATION TO CONTINUE FOR 4 DAYS. 03/07/16 15:30 Pleural Fluid ALANA Preparation - Preliminary 03/07/16 15:30 Pleural Fluid Fungal Culture - Preliminary 03/07/16 15:30 Pleural Fluid AFB Smear Concentration - Preliminary 03/07/16 15:30 Pleural Fluid Mycobacterial Culture - Preliminary 02/29/16 17:40 Nasopharyngeal Swab Respiratory Virus Panel - Final 02/25/16 17:30 Blood - Peripheral Venous Blood Culture - Final NO GROWTH AFTER 5 DAYS INCUBATION 02/25/16 17:30 Blood - Peripheral Venous Blood Culture - Final NO GROWTH AFTER 5 DAYS INCUBATION 02/28/16 17:40 Nasopharyngeal Swab Influenza Types A,B Antigen (TONI) - Final 02/28/16 17:40 Nasopharyngeal Swab - Final 02/26/16 06:45 Urine - Urine Clean Catch Urine Culture - Final NO GROWTH OBTAINED 02/18/16 19:15 Blood - Peripheral Venous Blood Culture - Final NO GROWTH AFTER 5 DAYS INCUBATION 02/18/16 19:15 Blood - Peripheral Venous Blood Culture - Final NO GROWTH AFTER 5 DAYS INCUBATION 02/18/16 18:10 Urine - Urine Clean Catch Urine Culture - Final NO GROWTH OBTAINED Active Medications Generic Name Dose Route Start Last Admin Trade Name Freq PRN Reason Stop Dose Admin Acetaminophen 650 mg 03/09/16 16:50 Tylenol - PO Q6H PRN FEVER OR PAIN Acetylcysteine 200 mg 02/26/16 10:00 03/09/16 10:00 Mucomyst 20 Oral / Inh Use Only* NEB 200 mg BID [facility]E Administration Albuterol Sulfate 1 amp 03/06/16 16:01 03/08/16 13:30 Ventolin 0.083% Nebulizer Soln - NEB 1 amp Q4H PRN Administration SHORT OF BREATH/WHEEZING Albuterol Sulfate 1 amp 03/06/16 18:00 03/09/16 19:01 Ventolin 0.083% Nebulizer Soln - NEB 1 amp QIDR [facility]E Administration Amlodipine Besylate 5 mg 03/08/16 10:00 03/09/16 10:43 Norvasc - PO 5 mg DAILY [facility]E Administration Arformoterol Tartrate 1 amp 02/23/16 22:00 03/09/16 10:00 Brovana (Restricted To Pulmonology/Resp) - NEB 1 amp BID [facility]E Administration Calcitriol 0.25 mcg 02/24/16 12:45 03/09/16 10:43 Rocaltrol - PO 0.25 mcg DAILY [facility]E Administration Calcium Acetate 667 mg 02/23/16 17:30 03/09/16 18:00 Phoslo - PO 667 mg TIDCM [facility]E Administration Duloxetine HCl 20 mg 02/24/16 10:00 03/09/16 10:44 Cymbalta - PO 20 mg DAILY [facility]E Administration Hydralazine HCl 50 mg 02/28/16 22:00 03/09/16 15:17 Apresoline - PO 50 mg TID [facility]E Administration Prednisone 30 mg 03/09/16 17:30 03/09/16 18:00 Deltasone - PO 30 mg DAILY [facility] Administration Pregabalin 25 mg 03/02/16 11:15 03/09/16 10:43 Lyrica - PO 25 mg DAILY [facility]E Administration Tiotropium [place] 1 puff 02/22/16 11:15 03/09/16 10:45 Spiriva - IH 1 inh DAILY [facility] Administration Torsemide 40 mg 03/09/16 10:00 03/09/16 10:42 Demadex - PO 40 mg DAILY [facility] Administration ASSESSMENT/PLAN: 75 year-old man with a PMH of HTN, PVD, COPD, CKD (baseline Cr 1.9), nephrolithiasis, and chronic LE lymphedema. Admitted for acute renal failure ( hyperkalemia) and respiratory distress. # Acute on chronic renal failure -limit fluid intake to 1L per day due to SOB. -Today BUN/Cr 145/3.5 (baseline 1.8-1.9), creatinine improving slowly off HD. -torsemide 40 mg po qd -phoslo increased to 1337 mg TID w/meals -goal of phos <5.5 # Acute COPD exacerbation with hypercapnic respiratory failure -SOB improving, can now walk a few steps without SOB -brovana, albuterol neb q4h PRN, albuterol neb standing qid -will switch to prednisone 30 mg tomorrow; taper -bipap use at night #SOB -improving -Resp virus panel - RSV positive -diuresis with torsemide 40 mg po qd -s/p R thoracentesis. 800 cc fluid removed. -fluid analysis: WBC 232, RBC: 1940, total protein: 2.184, LDH: 91.591, glucose: 215.755, amylase 8.508. -L thoracentesis will need to be done later due to hematoma from R thoracentesis. -BiPap added for use at night. #Hematoma -Improving since initial presentation after thoracentesis -CBC for tomorrow AM -monitor, if Hgb <7, transfuse. # Anemia, microcytic -Anemia of chronic disease secondary to CKD, TIBC low -Hgb 7.2 (s/p 1 unit PRBC this admission); stable -Transfuse if Hgb <7. -procrit 65875 units today -ASA held due to drop in Hgb -resume when Hgb higher & stable # Sepsis secondary to B/L lower extremity cellulitis -resolved -off abx # HTN -hydralazine 50 mg PO TID -norvasc 5 mg po qd added #. CHF (diastolic) -torsemide 40 mg qd -Causing his LE edema most likely -will get B/L LE duplex to r/o PE # Hx of Depression -c/w cymbalta 20mg #neuropathy -lyrica 25 mg PO qd -still having sharp electric pain in feet. Will consider increasing lyrica if renal fx can tolerate. # CAD -prasugrel 10 mg PO qd #. FEN -hypocalcemia -c/w calcitriol - f/u BMP # Dispo: monitor on floors. Problem List - Problems (1) Acute kidney failure Code(s): N17.9 - ACUTE KIDNEY FAILURE, UNSPECIFIED Qualifiers: Acute renal failure type: unspecified Qualified Code(s): N17.9 - Acute kidney failure, unspecified (2) COPD exacerbation Code(s): J44.1 - CHRONIC OBSTRUCTIVE PULMONARY DISEASE W (ACUTE) EXACERBATION (3) Hyperkalemia Code(s): E87.5 - HYPERKALEMIA (4) Acute and chronic respiratory failure ([id number]) Code(s): J96.20 - ACUTE AND CHR RESP FAILURE, UNSP W HYPOXIA OR HYPERCAPNIA Qualifiers: Respiratory failure complication: hypoxia and hypercapnia Qualified Code(s): J96.21 - Acute and chronic respiratory failure with hypoxia (5) Acute exacerbation of chronic obstructive pulmonary disease (COPD) Code(s): J44.1 - CHRONIC OBSTRUCTIVE PULMONARY DISEASE W (ACUTE) EXACERBATION (6) Acute on chronic diastolic (congestive) heart failure Code(s): I50.33 - ACUTE ON CHRONIC DIASTOLIC (CONGESTIVE) HEART FAILURE (7) Anxiety and depression Code(s): F41.9 - ANXIETY DISORDER, UNSPECIFIED F32.9 - MAJOR DEPRESSIVE DISORDER, SINGLE EPISODE, UNSPECIFIED (8) Cellulitis Code(s): L03.90 - CELLULITIS, UNSPECIFIED Qualifiers: Site of cellulitis of extremity: lower extremity (9) Chronic kidney disease (CKD) Code(s): N18.9 - CHRONIC KIDNEY DISEASE, UNSPECIFIED Qualifiers: Chronic kidney disease stage: unspecified stage Qualified Code(s): N18.9 - Chronic kidney disease, unspecified (10) Diastolic CHF Code(s): I50.30 - UNSPECIFIED DIASTOLIC (CONGESTIVE) HEART FAILURE (11) Hyperlipidemia Code(s): E78.5 - HYPERLIPIDEMIA, UNSPECIFIED (12) Hypertension Code(s): I10 - ESSENTIAL (PRIMARY) HYPERTENSION (13) Obesities, morbid Code(s): E66.01 - MORBID (SEVERE) OBESITY DUE TO EXCESS CALORIES Qualifiers: Obesity type: with alveolar hypoventilation Qualified Code(s): E66.2 - Morbid (severe) obesity with alveolar hypoventilation (14) Respiratory failure with hypoxia and hypercapnia Code(s): J96.91 - RESPIRATORY FAILURE, UNSPECIFIED WITH HYPOXIA J96.92 - RESPIRATORY FAILURE, UNSPECIFIED WITH HYPERCAPNIA Qualifiers: Chronicity: acute on chronic Qualified Code(s): J96.21 - Acute and chronic respiratory failure with hypoxia; J96.22 - Acute and chronic respiratory failure with hypercapnia (15) Shortness of breath Code(s): R06.02 - SHORTNESS OF BREATH (16) Hematoma Code(s): T14.8 - OTHER INJURY OF UNSPECIFIED BODY REGION Visit type - Emergency Visit Emergency Visit: Yes ED Registration Date: 02/18/16 Care time: The patient presented to the Emergency Department on the above date and was hospitalized for further evaluation of their emergent condition. - New Patient This patient is new to me today: No - Critical Care Critical Care patient: No
[2016-03-09] MEDS: ACETAMINOPHEN 325 MG TABLET (FP) PO PRN (21:41)
[2016-03-10] MEDS: hydrALAZINE HCL 50 MG TABLET (FP) PO SCH ×3 (06:33→21:14)
[2016-03-10] MEDS: ALBUTEROL SO4 0.083% IH SOL 2.5 MG/3 ML VIAL.NEB. NEB SCH ×4 (06:47→15:45)
[2016-03-10 08:25] LABS: BASOPHIL 0.2 % (0-2.0); MCH 25.3 pg (25.7-33.7); MCHC 30.8 g/dl (32.0-35.9); MEAN CELL VOLUME 82.3 fl (80-96); MEAN PLT VOLUME 8.3 fl (7.5-11.1); NEUTROPHILS 89.5 % (42.8-82.8); PLATELET COUNT 151 K/MM3 (134-434); RDW 21.8 % (11.9-15.9); WHITE BLOOD COUNT 7.5 K/mm3 (4.0-10.0)
--- NOTE | 2016-03-10 08:38 | PN ---
Progress Note, Physician Chief Complaint: no chest pain or SOB - Current Medication List Current Medications: Active Medications Acetaminophen (Tylenol -) 650 mg PO Q6H PRN PRN Reason: FEVER OR PAIN Last Admin: 03/09/16 21:41 Dose: 650 mg Acetylcysteine (Mucomyst 20 Oral / Inh Use Only*) 200 mg NEB BID [facility] Last Admin: 03/09/16 22:23 Dose: 200 mg Albuterol Sulfate (Ventolin 0.083% Nebulizer Soln -) 1 amp NEB Q4H PRN PRN Reason: SHORT OF BREATH/WHEEZING Last Admin: 03/08/16 13:30 Dose: 1 amp Albuterol Sulfate (Ventolin 0.083% Nebulizer Soln -) 1 amp NEB QIDR [facility] Last Admin: 03/10/16 06:47 Dose: 1 amp Amlodipine Besylate (Norvasc -) 5 mg PO DAILY [facility] Last Admin: 03/09/16 10:43 Dose: 5 mg Arformoterol Tartrate (Brovana (Restricted To Pulmonology/Resp) -) 1 amp NEB BID [facility] Last Admin: 03/09/16 22:21 Dose: 1 amp Calcitriol (Rocaltrol -) 0.25 mcg PO DAILY [facility] Last Admin: 03/09/16 10:43 Dose: 0.25 mcg Calcium Acetate (Phoslo -) 1,337 mg PO TIDCM [facility] Duloxetine HCl (Cymbalta -) 20 mg PO DAILY [facility] Last Admin: 03/09/16 10:44 Dose: 20 mg Hydralazine HCl (Apresoline -) 50 mg PO TID [facility] Last Admin: 03/10/16 06:33 Dose: 50 mg Prednisone (Deltasone -) 30 mg PO DAILY [facility] Last Admin: 03/09/16 18:00 Dose: 30 mg Pregabalin (Lyrica -) 25 mg PO DAILY [facility] Last Admin: 03/09/16 10:43 Dose: 25 mg Tiotropium [place] (Spiriva -) 1 puff IH DAILY [facility] Last Admin: 03/09/16 10:45 Dose: 1 inh Torsemide (Demadex -) 40 mg PO DAILY [facility] Last Admin: 03/09/16 10:42 Dose: 40 mg - Objective Vital Signs: Vital Signs Temperature 97.5 F L 03/10/16 06:00 Pulse Rate 80 03/10/16 06:00 Respiratory Rate 20 03/10/16 06:00 Blood Pressure 143/81 03/10/16 06:00 O2 Sat by Pulse Oximetry (%) 97 03/09/16 23:11 Constitutional: Yes: No Distress Cardiovascular: Yes: Regular Rate and Rhythm Respiratory: Yes: Other (decreased breath) Gastrointestinal: Yes: Soft, Abdomen, Obese Edema: Yes Edema: LLE: 2+, RLE: 2+ Labs: CBC, BMP 03/10/16 06:30 INR, PTT INR 1.12 (0.82-1.09) 02/18/16 13:00 Laboratory Tests 03/09/16 03/10/16 03/10/16 06:30 06:30 06:30 WBC Pending Hgb Pending Plt Count Pending Potassium Pending BUN 145 H* Pending Creatinine 3.5 H Pending Assessment/Plan Assessment/Plan 75 year old man with a history of HTN, COPD on home O2, Chronic combined systolic/diastolic CHF, CKD, JOY, CAD moderate LV systolic dysfunction, cardiac cath 03/2015 showed 2VD with RCA and LAD disease. He underwent PCI with ABDON of RCA 03/2015 and staged PCI of LAD in 04/2015 with significant improvement in symptoms. He has been feeling well since then, now admitted with cellulitis, sepsis, TARYN on CKD and sob S/p thoracentesis: -Watch H/H -Hold Effient. ASA now also held due to slight drop in H/H. Resume when feasible. -Transfuse as needed Chills: -afebrile, but on steroids -will send cultures, pending. Chronic diastolic CHF NYHA class IV, LV systolic function normalized post PCI: -diurese as per renal -monitor I/Os -monitor BUN/Creat, electrolytes, keep k=4, Mg=2 -not on bblocker due to severe COPD -not on PIPER-I currently due to fluctuating renal function -echo showed normal LV systolic function, no sig valvular abnl CAD-PCI with ABDON of RCA 03/2015 and staged PCI of LAD in 04/2015 -temporarily holding effient and ASA as oozing from thoracentesis site -cont lipitor Anemia- guaiac negative. -Transfused this admission, transfuse PRN -Follow H/H -further work up as per PMD Acute on chronic CKD- -creatinine improved since admission, seems to have stabilized -renal following.
[2016-03-10 08:56] LABS: CALCIUM 8.2 mg/dL (8.5-10.1); MAGNESIUM 2.8 mg/dL (1.8-2.4)
[2016-03-10 08:58] LABS: CREATININE 3.4 mg/dL (0.7-1.3); PHOSPHOROUS 6.7 mg/dL (2.5-4.9)
[2016-03-10] MEDS: CALCIUM ACETATE 667 MG CAPSULE (FP) PO SCH ×3 (09:00→18:32)
[2016-03-10 09:48] LABS: ANISOCYTOSIS 2+; HYPOCHROMIA 1+; OVALOCYTES 1+; POIKILOCYTOSIS 1+; POLYCHROMASIA 1+
[2016-03-10] MEDS: ACETYLCYSTEINE 20% 200MG/ML 4 ML VIAL *FOR ORAL / INH USE ONLY NEB SCH ×2 (10:45→22:47)
[2016-03-10] MEDS: ARFORMOTEROL TARTRATE 15 MCG/2 ML VIAL NEB SCH ×2 (10:45→22:47)
[2016-03-10] MEDS: PREGABALIN 25 MG CAPSULE PO SCH (10:50)
[2016-03-10] MEDS: TORSEMIDE 20 MG TABLET (FP) PO SCH (10:50)
[2016-03-10] MEDS: predniSONE 20 MG TABLET (UD) PO SCH (10:50)
[2016-03-10] MEDS: CALCITRIOL 0.25 MCG CAPSULE (FP) PO SCH (10:50)
[2016-03-10] MEDS: amLODIPine BESYLATE 5 MG TABLET (FP) PO SCH (10:50)
[2016-03-10] MEDS: TIOTROPIUM BROMIDE 18 MCG/INH (DEVICE W/ 5 CAPSULES) IH SCH (10:51)
[2016-03-10] MEDS ORDERED: PT OWN MED DRAWER 7, Y5N ONE ×2 (11:00→21:20)
[2016-03-10] MEDS: DULoxetine HCL 20 MG CAPSULE.DR (FP) PO SCH (11:01)
--- NOTE | 2016-03-10 12:54 | PN ---
Progress Note (short form) - Note Progress Note: Renal Follow up for KARLOS Pt seen and examined at the bedside has no acute complaints no sob, chest pain wants to walk more Vital Signs Temperature 97.5 F L 03/10/16 06:00 Pulse Rate 80 03/10/16 06:00 Respiratory Rate 20 03/10/16 06:00 Blood Pressure 143/81 03/10/16 06:00 O2 Sat by Pulse Oximetry (%) 97 03/10/16 10:40 Intake & Output 03/07/16 03/08/16 03/09/16 03/10/16 23:59 23:59 23:59 23:59 Intake Total 1000 1040 1900 Output Total 2300 800 1300 400 Balance -1300 240 600 -400 Weight 319 lb 6 oz 313 lb 6.4 oz 315 lb 316 lb 3.2 oz Gen: NAD CVS: RRR No M/R Lungs: dec BS throughout the lung rey Abd: Soft NT + Mild distension Ext: > 3+ LE Lymph edema, no cyanosis or clubbing CBC, BMP 03/10/16 06:30 03/10/16 06:30 Current Medications Acetaminophen (Tylenol -) 650 mg PO Q6H PRN PRN Reason: FEVER OR PAIN Last Admin: 03/09/16 21:41 Dose: 650 mg Acetylcysteine (Mucomyst 20 Oral / Inh Use Only*) 200 mg NEB BID [facility] Last Admin: 03/10/16 10:45 Dose: 200 mg Albuterol Sulfate (Ventolin 0.083% Nebulizer Soln -) 1 amp NEB Q4H PRN PRN Reason: SHORT OF BREATH/WHEEZING Last Admin: 03/08/16 13:30 Dose: 1 amp Albuterol Sulfate (Ventolin 0.083% Nebulizer Soln -) 1 amp NEB QIDR [facility] Last Admin: 03/10/16 06:47 Dose: 1 amp Amlodipine Besylate (Norvasc -) 5 mg PO DAILY [facility] Last Admin: 03/10/16 10:50 Dose: 5 mg Arformoterol Tartrate (Brovana (Restricted To Pulmonology/Resp) -) 1 amp NEB BID [facility] Last Admin: 03/10/16 10:45 Dose: 1 amp Calcitriol (Rocaltrol -) 0.25 mcg PO DAILY [facility] Last Admin: 03/10/16 10:50 Dose: 0.25 mcg Calcium Acetate (Phoslo -) 1,337 mg PO TIDCM [facility] Last Admin: 03/10/16 09:00 Dose: 1,337 mg Duloxetine HCl (Cymbalta -) 20 mg PO DAILY [facility] Last Admin: 03/10/16 11:01 Dose: 20 mg Hydralazine HCl (Apresoline -) 50 mg PO TID [facility] Last Admin: 03/10/16 06:33 Dose: 50 mg Prednisone (Deltasone -) 30 mg PO DAILY [facility] Last Admin: 03/10/16 10:50 Dose: 30 mg Pregabalin (Lyrica -) 25 mg PO DAILY [facility] Last Admin: 03/10/16 10:50 Dose: 25 mg Tiotropium [place] (Spiriva -) 1 puff IH DAILY [facility] Last Admin: 03/10/16 10:51 Dose: 1 inh Torsemide (Demadex -) 40 mg PO DAILY [facility] Last Admin: 03/10/16 10:50 Dose: 40 mg A/P 75 year old Gentleman with PMhx of CKD Stage 3 (baseline Cr 1.9), Hx of Nephrolithiasis, Hypertension, COPD, CHF, PVD, Chronic LE lymph edema who was sent into the ED from wound care for increased lethargy and decreased urination for several days with KARLOS with BUN/Cr of 115/7.2 and K of 6.5 #Acute Renal Failure on CKD stage 3 Cr improving, pt is non-oliguric no uremia despite high bun continue diuretics, trend BUN/Cr while inpatient no indication for CARROT BUNCHER #Fluid overload/LE edema/Pleural effusions/COPD/RSV Continue Torsemide Daily s/p Thoracenteiss on Prednisone for COPD being tapered BIPAP as needed #Hypocalcemia/Hyperphosphatemia/Secondary Hyperparatyrodism Corrected ca is within normal limits now Phoslo to 1334 TID with meals with goal phos < 5.5 continue Calcitriol #Microcytic Anemia Trend CBC s/p prbc transfusion s/p Epogen 92414 units yesterday Melvin Johnson DO
--- NOTE | 2016-03-10 15:28 | PN ---
Progress Note, Physician History of Present Illness: patient still with sob no new events walked a little - Current Medication List Current Medications: Active Medications Acetaminophen (Tylenol -) 650 mg PO Q6H PRN PRN Reason: FEVER OR PAIN Last Admin: 03/09/16 21:41 Dose: 650 mg Acetylcysteine (Mucomyst 20 Oral / Inh Use Only*) 200 mg NEB BID [facility] Last Admin: 03/10/16 10:45 Dose: 200 mg Albuterol Sulfate (Ventolin 0.083% Nebulizer Soln -) 1 amp NEB Q4H PRN PRN Reason: SHORT OF BREATH/WHEEZING Last Admin: 03/08/16 13:30 Dose: 1 amp Albuterol Sulfate (Ventolin 0.083% Nebulizer Soln -) 1 amp NEB QIDR [facility] Last Admin: 03/10/16 06:47 Dose: 1 amp Amlodipine Besylate (Norvasc -) 5 mg PO DAILY [facility] Last Admin: 03/10/16 10:50 Dose: 5 mg Arformoterol Tartrate (Brovana (Restricted To Pulmonology/Resp) -) 1 amp NEB BID [facility] Last Admin: 03/10/16 10:45 Dose: 1 amp Calcitriol (Rocaltrol -) 0.25 mcg PO DAILY [facility] Last Admin: 03/10/16 10:50 Dose: 0.25 mcg Calcium Acetate (Phoslo -) 1,337 mg PO TIDCM [facility] Last Admin: 03/10/16 13:29 Dose: 1,337 mg Duloxetine HCl (Cymbalta -) 20 mg PO DAILY [facility] Last Admin: 03/10/16 11:01 Dose: 20 mg Hydralazine HCl (Apresoline -) 50 mg PO TID [facility] Last Admin: 03/10/16 13:29 Dose: 50 mg Prednisone (Deltasone -) 30 mg PO DAILY [facility] Last Admin: 03/10/16 10:50 Dose: 30 mg Pregabalin (Lyrica -) 25 mg PO DAILY [facility] Last Admin: 03/10/16 10:50 Dose: 25 mg Tiotropium [place] (Spiriva -) 1 puff IH DAILY [facility] Last Admin: 03/10/16 10:51 Dose: 1 inh Torsemide (Demadex -) 40 mg PO DAILY [facility] Last Admin: 03/10/16 10:50 Dose: 40 mg - Objective Vital Signs: Vital Signs Temperature 97.5 F L 03/10/16 06:00 Pulse Rate 80 03/10/16 06:00 Respiratory Rate 20 03/10/16 06:00 Blood Pressure 143/81 03/10/16 06:00 O2 Sat by Pulse Oximetry (%) 97 03/10/16 10:40 Constitutional: Yes: Calm, Mild Distress Cardiovascular: Yes: Regular Rate and Rhythm Respiratory: Yes: Regular, On Nasal O2, Poor Air Entry, Other (distant air entry ) Gastrointestinal: Yes: Normal Bowel Sounds, Soft Musculoskeletal: Yes: WNL Extremities: Yes: Other Edema: LLE: 2+, RLE: 2+ Neurological: Yes: Alert, Oriented Psychiatric: Yes: Alert Labs: CBC, BMP 03/10/16 06:30 03/10/16 06:30 INR, PTT INR 1.12 (0.82-1.09) 02/18/16 13:00 Assessment/Plan 75 year-old man with a PMH of HTN, PVD, COPD, CKD (baseline Cr 1.9), nephrolithiasis, and chronic LE lymphedema. Admitted in acute renal failure. Acute on chronic renal failure Hyperkalemia Sepsis s Hypertension Peripheral vascular disease Hypercarbic respiratory failure COPD bilateral cellulitis of the legs rsv lung infection pleural effusion plan continue resp physio continue monitoring physiotherapy stable
--- NOTE | 2016-03-10 16:27 | PN ---
Teaching Attending Note Name of Resident: Freddie Strickland ATTENDING PHYSICIAN STATEMENT I saw and evaluated the patient. I reviewed the resident's note and discussed the case with the resident. I agree with the resident's findings and plan as documented. SUBJECTIVE: no SOB , no fever or chills, no CP . has increased UOP OBJECTIVE: NAD Cv : RRR Lungs : decreased breath sounds at bases , no wheezes , minimal fine crackles b /l ext : 3 + pitting edema , and thick skin with no discharge ASSESSMENT AND PLAN: 75 year-old man with a PMHx of HTN, PVD, COPD, CKD (baseline Cr 1.8), nephrolithiasis, D CHF , CAD s/p stenting in 03/23 and chronic LE lymphedema. presented with SOB and was found to have acute hypercapnic resp failure with acute renal failure . 1- Acute hypercapnic resp failure due to COPD exa and diastolic heart failure and pleural effusions - SOB continue to improve - cont BIPAp q HS , and demadex - s/p R pleurocentesis 03/07 . will try to avoid L pleurocentesis as pt sx has improved . - will resume asa - day 1 of 30 mg of prednisone 2- cellultis of LE :reoslved . off abx now follow repeated blood cx . pt is always cold at his base line, no chills 3- KARLOS on CKD: off HD .stable Cr on cacitriol and phoslo 4- microcytic anemia. - no evidence of iron def ( ACD ) -will give another unit of blood today with extra diuresis 5- HTN: better . cont HZN and norvasc 6- HLOC
--- NOTE | 2016-03-10 17:27 | PN ---
Progress Note, Physician History of Present Illness: Pt used BIPAP last night. Respiratory status improved - Current Medication List Current Medications: Active Medications Acetaminophen (Tylenol -) 650 mg PO Q6H PRN PRN Reason: FEVER OR PAIN Last Admin: 03/09/16 21:41 Dose: 650 mg Acetylcysteine (Mucomyst 20 Oral / Inh Use Only*) 200 mg NEB BID [facility] Last Admin: 03/10/16 10:45 Dose: 200 mg Albuterol Sulfate (Ventolin 0.083% Nebulizer Soln -) 1 amp NEB Q4H PRN PRN Reason: SHORT OF BREATH/WHEEZING Last Admin: 03/08/16 13:30 Dose: 1 amp Albuterol Sulfate (Ventolin 0.083% Nebulizer Soln -) 1 amp NEB QIDR [facility] Last Admin: 03/10/16 15:45 Dose: 1 amp Amlodipine Besylate (Norvasc -) 5 mg PO DAILY [facility] Last Admin: 03/10/16 10:50 Dose: 5 mg Arformoterol Tartrate (Brovana (Restricted To Pulmonology/Resp) -) 1 amp NEB BID [facility] Last Admin: 03/10/16 10:45 Dose: 1 amp Aspirin (Ecotrin -) 81 mg PO DAILY [facility] Calcitriol (Rocaltrol -) 0.25 mcg PO DAILY [facility] Last Admin: 03/10/16 10:50 Dose: 0.25 mcg Calcium Acetate (Phoslo -) 1,337 mg PO TIDCM [facility] Last Admin: 03/10/16 13:29 Dose: 1,337 mg Duloxetine HCl (Cymbalta -) 20 mg PO DAILY [facility] Last Admin: 03/10/16 11:01 Dose: 20 mg Hydralazine HCl (Apresoline -) 50 mg PO TID [facility] Last Admin: 03/10/16 13:29 Dose: 50 mg Prasugrel (Effient -) 10 mg PO DAILY [facility] Prednisone (Deltasone -) 30 mg PO DAILY [facility] Last Admin: 03/10/16 10:50 Dose: 30 mg Pregabalin (Lyrica -) 25 mg PO DAILY [facility] Last Admin: 03/10/16 10:50 Dose: 25 mg Tiotropium [place] (Spiriva -) 1 puff IH DAILY [facility] Last Admin: 03/10/16 10:51 Dose: 1 inh Torsemide (Demadex -) 40 mg PO DAILY [facility] Last Admin: 03/10/16 10:50 Dose: 40 mg Torsemide (Demadex -) 40 mg PO ONCE ONE Stop: 03/11/16 16:46 - Objective Vital Signs: Vital Signs Temperature 98.5 F 03/10/16 15:52 Pulse Rate 98 H 03/10/16 15:52 Respiratory Rate 20 03/10/16 15:52 Blood Pressure 146/70 03/10/16 15:52 O2 Sat by Pulse Oximetry (%) 97 03/10/16 11:00 Constitutional: Yes: Mild Distress (secondary to constipation) Eyes: Yes: Sclera Icterus HENT: Yes: Atraumatic, Normocephalic Neck: Yes: Supple, Trachea Midline Cardiovascular: Yes: Regular Rate and Rhythm Respiratory: Yes: Diminished Gastrointestinal: Yes: Soft Edema: LLE: 3+, RLE: 3+ Neurological: Yes: Alert, Oriented Labs: CBC, BMP 03/10/16 06:30 03/10/16 06:30 INR, PTT INR 1.12 (0.82-1.09) 02/18/16 13:00 Problem List - Problems (1) COPD exacerbation Code(s): J44.1 - CHRONIC OBSTRUCTIVE PULMONARY DISEASE W (ACUTE) EXACERBATION (2) Acute and chronic respiratory failure ([id number]) Code(s): J96.20 - ACUTE AND CHR RESP FAILURE, UNSP W HYPOXIA OR HYPERCAPNIA Qualifiers: Respiratory failure complication: hypoxia and hypercapnia Qualified Code(s): J96.21 - Acute and chronic respiratory failure with hypoxia (3) Acute kidney failure Code(s): N17.9 - ACUTE KIDNEY FAILURE, UNSPECIFIED Qualifiers: Acute renal failure type: unspecified Qualified Code(s): N17.9 - Acute kidney failure, unspecified (4) Chronic kidney disease (CKD) Code(s): N18.9 - CHRONIC KIDNEY DISEASE, UNSPECIFIED Qualifiers: Chronic kidney disease stage: unspecified stage Qualified Code(s): N18.9 - Chronic kidney disease, unspecified (5) Cellulitis Code(s): L03.90 - CELLULITIS, UNSPECIFIED Qualifiers: Site of cellulitis of extremity: lower extremity (6) Hyperkalemia Code(s): E87.5 - HYPERKALEMIA (7) Arteriosclerotic heart disease (ASHD) Code(s): I25.10 - ATHSCL HEART DISEASE OF [place] CORONARY ARTERY W/O ANG PCTRS (8) Obesities, morbid Code(s): E66.01 - MORBID (SEVERE) OBESITY DUE TO EXCESS CALORIES Qualifiers: Obesity type: with alveolar hypoventilation Qualified Code(s): E66.2 - Morbid (severe) obesity with alveolar hypoventilation Assessment/Plan COPD Acute on chronic hypercapneic respiratory failure-improved CAD; S/P stents; no chest pain or palpitations. CHF/fluid overload . Pt is s/p right thoracentesis (600 cc) Fluid is transudative. Cytology and cultures pending. I don't feel pt needs another thoracentesis (left side)-discussed with Dr. Sapp Acute Renal Failure Chronic Renal Insufficiency: currently Creatinine is 3.4, BUN 149, Hgb 6.9, K 4.0- renal function gradually returning to his baseline of Creatinine 1.8 Anemia secondary to renal failure, ?bleeding. Hgb decreasing: transfusion planned Plan: diuretic continued: now on Torsemide fluid restriction Steroid taper in progress inhaled bronchodilator NIPPV nightly Monitor blood counts; transfuse PRN
[2016-03-10] MEDS ORDERED: MAGNESIUM HYDROX 2400MG/30ML ORAL SUSPENSION 30 ML CUP PO ONE (17:35)
[2016-03-10] MEDS ORDERED: BISACODYL 10 MG SUPP.RECT PR ONE (17:37)
[2016-03-10] MEDS ORDERED: BISACODYL 10 MG SUPP.RECT RC ONE (18:33)
--- NOTE | 2016-03-10 19:28 | PN ---
Physical Exam: SUBJECTIVE: Patient seen and examined on chair next to bedside. Pt feels well today. Breathing continues to improve. Did not use bipap last night due to beeping noise from machine. He was able to walk 15 feet today. He Denies N/V/F/ C, CP, abd pain. OBJECTIVE: Vital Signs Temperature 98.5 F 03/10/16 15:52 Pulse Rate 98 H 03/10/16 15:52 Respiratory Rate 20 03/10/16 15:52 Blood Pressure 146/70 03/10/16 15:52 O2 Sat by Pulse Oximetry (%) 97 03/10/16 11:00 GENERAL: The patient is awake, alert, and fully oriented, in no acute distress. HEAD: Normal with no signs of trauma. EYES: sclera anicteric, conjunctiva clear. No ptosis. ENT: moist mucous membranes. NECK: Trachea midline, full range of motion LUNGS: Diminished breath sounds, CTA HEART: Regular rate and rhythm, S1, S2 without murmur, rub or gallop. ABDOMEN: Obese, Soft, nontender, nondistended, normoactive bowel sounds, no guarding, no rebound, no hepatosplenomegaly, no masses. EXTREMITIES: warm, well-perfused, B/L cellulitic changes, B/L LE 3+ pitting edema and alvarado crusted lesions. NEUROLOGICAL: Normal speech, gait not observed. PSYCH: Normal mood, normal affect. SKIN: Warm, dry, normal turgor, skin changes as noted above in extremities. R back, hematoma improved Laboratory Results - last 24 hr 03/08/16 03/10/16 03/10/16 10:15 06:30 06:30 WBC 7.5 Corrected WBC (auto) RBC 2.73 L Hgb 6.9 L* Hct 22.5 L MCV 82.3 MCHC 30.8 L RDW 21.8 H Plt Count 151 MPV 8.3 Neutrophils % 89.5 H Lymphocytes % 4.2 L D Monocytes % 6.1 Eosinophils % 0.0 Basophils % 0.2 D Differential Comment Platelet Estimate Platelet Comment RBC Morphology Polychromasia 1+ Hypochromic-Microcytic 1+ Poikilocytosis 1+ Anisocytosis 2+ Ovalocytes 1+ Sodium 140 Potassium 4.0 Chloride 99 Carbon Dioxide 28 Anion Gap 13 BUN 149 H* Creatinine 3.4 H Random Glucose 134 H Calcium 8.2 L Phosphorus 6.7 H Magnesium 2.8 H Blood Type A POSITIVE Antibody Screen Negative Crossmatch See Detail 03/10/16 06:30 WBC Cancelled Corrected WBC (auto) Cancelled RBC Cancelled Hgb Cancelled Hct Cancelled MCV Cancelled MCHC Cancelled RDW Cancelled Plt Count Cancelled MPV Cancelled Neutrophils % Lymphocytes % Monocytes % Eosinophils % Basophils % Differential Comment Cancelled Platelet Estimate Cancelled Platelet Comment Cancelled RBC Morphology Cancelled Polychromasia Hypochromic-Microcytic Poikilocytosis Anisocytosis Ovalocytes Sodium Potassium Chloride Carbon Dioxide Anion Gap BUN Creatinine Random Glucose Calcium Phosphorus Magnesium Blood Type Antibody Screen Crossmatch Microbiology 03/08/16 10:15 Blood - Peripheral Venous Blood Culture - Preliminary NO GROWTH OBTAINED AFTER 48 HOURS, INCUBATION TO CONTINUE FOR 3 DAYS. 03/08/16 10:15 Blood - Peripheral Venous Blood Culture - Preliminary NO GROWTH OBTAINED AFTER 48 HOURS, INCUBATION TO CONTINUE FOR 3 DAYS. 03/07/16 15:30 Pleural Fluid Gram Stain - Final 03/07/16 15:30 Pleural Fluid Body Fluid Culture - Final NO GROWTH OF AEROBIC ORGANISMS AFTER 48 HOURS INCUBATION 03/07/16 15:30 Pleural Fluid Anaerobic Culture - Final NO ANAEROBES WERE ISOLATED 03/07/16 15:30 Pleural Fluid AFB Smear Concentration - Final 03/07/16 15:30 Pleural Fluid Mycobacterial Culture - Preliminary 03/07/16 15:30 Pleural Fluid ALANA Preparation - Preliminary 03/07/16 15:30 Pleural Fluid Fungal Culture - Preliminary 02/29/16 17:40 Nasopharyngeal Swab Respiratory Virus Panel - Final 02/25/16 17:30 Blood - Peripheral Venous Blood Culture - Final NO GROWTH AFTER 5 DAYS INCUBATION 02/25/16 17:30 Blood - Peripheral Venous Blood Culture - Final NO GROWTH AFTER 5 DAYS INCUBATION 02/28/16 17:40 Nasopharyngeal Swab Influenza Types A,B Antigen (TONI) - Final 02/28/16 17:40 Nasopharyngeal Swab - Final 02/26/16 06:45 Urine - Urine Clean Catch Urine Culture - Final NO GROWTH OBTAINED 02/18/16 19:15 Blood - Peripheral Venous Blood Culture - Final NO GROWTH AFTER 5 DAYS INCUBATION 02/18/16 19:15 Blood - Peripheral Venous Blood Culture - Final NO GROWTH AFTER 5 DAYS INCUBATION 02/18/16 18:10 Urine - Urine Clean Catch Urine Culture - Final NO GROWTH OBTAINED Active Medications Generic Name Dose Route Start Last Admin Trade Name Freq PRN Reason Stop Dose Admin Acetaminophen 650 mg 03/09/16 16:50 03/09/16 21:41 Tylenol - PO 650 mg Q6H PRN Administration FEVER OR PAIN Acetylcysteine 200 mg 02/26/16 10:00 03/10/16 10:45 Mucomyst 20 Oral / Inh Use Only* NEB 200 mg BID [facility] Administration Albuterol Sulfate 1 amp 03/06/16 16:01 03/08/16 13:30 Ventolin 0.083% Nebulizer Soln - NEB 1 amp Q4H PRN Administration SHORT OF BREATH/WHEEZING Albuterol Sulfate 1 amp 03/06/16 18:00 03/10/16 15:45 Ventolin 0.083% Nebulizer Soln - NEB 1 amp QIDR [facility] Administration Amlodipine Besylate 5 mg 03/08/16 10:00 03/10/16 10:50 Norvasc - PO 5 mg DAILY [facility] Administration Arformoterol Tartrate 1 amp 02/23/16 22:00 03/10/16 10:45 Brovana (Restricted To Pulmonology/Resp) - NEB 1 amp BID [facility] Administration Aspirin 81 mg 03/11/16 10:00 Ecotrin - PO DAILY [facility] Calcitriol 0.25 mcg 02/24/16 12:45 03/10/16 10:50 Rocaltrol - PO 0.25 mcg DAILY [facility] Administration Calcium Acetate 1,337 mg 03/09/16 19:21 03/10/16 18:32 Phoslo - PO 1,337 mg TIDCM [facility] Administration Docusate Sodium 100 mg 03/10/16 17:34 Colace - PO BID PRN CONSTIPATION Duloxetine HCl 20 mg 02/24/16 10:00 03/10/16 11:01 Cymbalta - PO 20 mg DAILY [facility] Administration Hydralazine HCl 50 mg 02/28/16 22:00 03/10/16 13:29 Apresoline - PO 50 mg TID [facility] Administration Prasugrel 10 mg 03/11/16 10:00 Effient - PO DAILY [facility] Prednisone 30 mg 03/09/16 17:30 03/10/16 10:50 Deltasone - PO 30 mg DAILY [facility] Administration Pregabalin 25 mg 03/02/16 11:15 03/10/16 10:50 Lyrica - PO 25 mg DAILY [facility] Administration Tiotropium [place] 1 puff 02/22/16 11:15 03/10/16 10:51 Spiriva - IH 1 inh DAILY [facility] Administration Torsemide 40 mg 03/09/16 10:00 03/10/16 10:50 Demadex - PO 40 mg DAILY [facility] Administration Torsemide 40 mg 03/11/16 16:45 Demadex - PO 03/11/16 16:46 ONCE ONE ASSESSMENT/PLAN: 75 year-old man with a PMH of HTN, PVD, COPD, CKD (baseline Cr 1.9), nephrolithiasis, and chronic LE lymphedema. Admitted for acute renal failure ( hyperkalemia) and respiratory distress. # Acute on chronic renal failure -limit fluid intake to 1L per day due to SOB. -Today BUN/Cr 149/3.4 (baseline 1.8-1.9), creatinine improving slowly off HD. -torsemide 40 mg po qd -phoslo increased to 1337 mg TID w/meals -goal of phos <5.5 -phos 6.7 today # Acute COPD exacerbation with hypercapnic respiratory failure -SOB improving, can now walk 15 feet before SOB -brovana, albuterol neb q4h PRN, albuterol neb standing qid -prednisone 30 mg (day 2); taper -bipap use at night #SOB -improving -Resp virus panel - RSV positive -diuresis with torsemide 40 mg po qd -s/p R thoracentesis. 800 cc fluid removed. -fluid analysis: WBC 232, RBC: 1940, total protein: 2.184, LDH: 91.591, glucose: 215.755, amylase 8.508. -no need for thoracentesis now on L side. pt improving -BiPap added for use at night. #Hematoma -Improving since initial presentation after thoracentesis -CBC for tomorrow AM -monitor, if Hgb <7, transfuse. # Anemia, microcytic -Anemia of chronic disease secondary to CKD, TIBC low -Hgb 6.9 (s/p 2 unit PRBC this admission); -Transfused with 1 unit of PRBC today. f/u CBC -Transfuse if Hgb <7. -procrit 85566 units yesterday -ASA held due to drop in Hgb -resume when Hgb higher & stable # Sepsis secondary to B/L lower extremity cellulitis -resolved -off abx # HTN -hydralazine 50 mg PO TID -norvasc 5 mg po qd #. CHF (diastolic) -torsemide 40 mg qd -Causing his LE edema most likely -will get B/L LE duplex to r/o PE # Hx of Depression -c/w cymbalta 20mg #neuropathy -lyrica 25 mg PO qd -still having sharp electric pain in feet. Will consider increasing lyrica if renal fx can tolerate. # CAD -prasugrel 10 mg PO qd #. FEN -hypocalcemia -c/w calcitriol - f/u BMP # Dispo: monitor on floors. Problem List - Problems (1) Acute kidney failure Code(s): N17.9 - ACUTE KIDNEY FAILURE, UNSPECIFIED Qualifiers: Acute renal failure type: unspecified Qualified Code(s): N17.9 - Acute kidney failure, unspecified (2) COPD exacerbation Code(s): J44.1 - CHRONIC OBSTRUCTIVE PULMONARY DISEASE W (ACUTE) EXACERBATION (3) Hyperkalemia Code(s): E87.5 - HYPERKALEMIA (4) Acute and chronic respiratory failure ([id number]) Code(s): J96.20 - ACUTE AND CHR RESP FAILURE, UNSP W HYPOXIA OR HYPERCAPNIA Qualifiers: Respiratory failure complication: hypoxia and hypercapnia Qualified Code(s): J96.21 - Acute and chronic respiratory failure with hypoxia (5) Acute exacerbation of chronic obstructive pulmonary disease (COPD) Code(s): J44.1 - CHRONIC OBSTRUCTIVE PULMONARY DISEASE W (ACUTE) EXACERBATION (6) Acute on chronic diastolic (congestive) heart failure Code(s): I50.33 - ACUTE ON CHRONIC DIASTOLIC (CONGESTIVE) HEART FAILURE (7) Anxiety and depression Code(s): F41.9 - ANXIETY DISORDER, UNSPECIFIED F32.9 - MAJOR DEPRESSIVE DISORDER, SINGLE EPISODE, UNSPECIFIED (8) Cellulitis Code(s): L03.90 - CELLULITIS, UNSPECIFIED Qualifiers: Site of cellulitis of extremity: lower extremity (9) Chronic kidney disease (CKD) Code(s): N18.9 - CHRONIC KIDNEY DISEASE, UNSPECIFIED Qualifiers: Chronic kidney disease stage: unspecified stage Qualified Code(s): N18.9 - Chronic kidney disease, unspecified (10) Diastolic CHF Code(s): I50.30 - UNSPECIFIED DIASTOLIC (CONGESTIVE) HEART FAILURE (11) Hyperlipidemia Code(s): E78.5 - HYPERLIPIDEMIA, UNSPECIFIED (12) Hypertension Code(s): I10 - ESSENTIAL (PRIMARY) HYPERTENSION (13) Obesities, morbid Code(s): E66.01 - MORBID (SEVERE) OBESITY DUE TO EXCESS CALORIES Qualifiers: Obesity type: with alveolar hypoventilation Qualified Code(s): E66.2 - Morbid (severe) obesity with alveolar hypoventilation (14) Respiratory failure with hypoxia and hypercapnia Code(s): J96.91 - RESPIRATORY FAILURE, UNSPECIFIED WITH HYPOXIA J96.92 - RESPIRATORY FAILURE, UNSPECIFIED WITH HYPERCAPNIA Qualifiers: Chronicity: acute on chronic Qualified Code(s): J96.21 - Acute and chronic respiratory failure with hypoxia; J96.22 - Acute and chronic respiratory failure with hypercapnia (15) Shortness of breath Code(s): R06.02 - SHORTNESS OF BREATH (16) Hematoma Code(s): T14.8 - OTHER INJURY OF UNSPECIFIED BODY REGION Visit type - Emergency Visit Emergency Visit: Yes ED Registration Date: 02/18/16 Care time: The patient presented to the Emergency Department on the above date and was hospitalized for further evaluation of their emergent condition. - New Patient This patient is new to me today: No - Critical Care Critical Care patient: No
[2016-03-10] MEDS: DOCUSATE SODIUM 100 MG CAPSULE (FP) PO PRN (21:14)
[2016-03-10] MEDS ORDERED: FUROSEMIDE 40 MG/4 ML INJECTABLE VIAL IVPUSH ONE (22:30)
[2016-03-11] MEDS: ALBUTEROL SO4 0.083% IH SOL 2.5 MG/3 ML VIAL.NEB. NEB SCH ×4 (00:05→17:55)
[2016-03-11 01:17] LABS: MCH 25.9 pg (25.7-33.7); MCHC 31.5 g/dl (32.0-35.9); MEAN CELL VOLUME 82.2 fl (80-96); MEAN PLT VOLUME 8.2 fl (7.5-11.1); PLATELET COUNT 141 K/MM3 (134-434); RDW 21.2 % (11.9-15.9)
[2016-03-11] MEDS: hydrALAZINE HCL 50 MG TABLET (FP) PO SCH ×3 (06:09→21:26)
[2016-03-11] MEDS ORDERED: PT OWN MED DRAWER 7, Y5N ONE ×2 (09:01→17:21)
[2016-03-11] MEDS: CALCITRIOL 0.25 MCG CAPSULE (FP) PO SCH (09:19)
[2016-03-11] MEDS: predniSONE 20 MG TABLET (UD) PO SCH (09:20)
[2016-03-11] MEDS: CALCIUM ACETATE 667 MG CAPSULE (FP) PO SCH ×3 (09:20→17:29)
[2016-03-11] MEDS: amLODIPine BESYLATE 10 MG TABLET (FP) PO SCH ×2 (09:21→14:54)
[2016-03-11] MEDS: DOCUSATE SODIUM 100 MG CAPSULE (FP) PO PRN (09:21)
[2016-03-11] MEDS: ASPIRIN COATED 81 MG TABLET.EC PO SCH (09:21)
[2016-03-11] MEDS: PREGABALIN 25 MG CAPSULE PO SCH (09:21)
[2016-03-11] MEDS: DULoxetine HCL 20 MG CAPSULE.DR (FP) PO SCH (09:22)
[2016-03-11] MEDS: TORSEMIDE 20 MG TABLET (FP) PO ONE ×2 (09:22→17:29)
[2016-03-11] MEDS: TIOTROPIUM BROMIDE 18 MCG/INH (DEVICE W/ 5 CAPSULES) IH SCH (09:23)
[2016-03-11] MEDS: PRASUGREL HCL 10 MG TAB PO SCH (09:23)
[2016-03-11] MEDS: TORSEMIDE 20 MG TABLET (FP) PO SCH (09:23)
--- NOTE | 2016-03-11 10:42 | PN ---
Progress Note, Physician History of Present Illness: stable on bipap says breathing is better - Current Medication List Current Medications: Active Medications Acetaminophen (Tylenol -) 650 mg PO Q6H PRN PRN Reason: FEVER OR PAIN Last Admin: 03/09/16 21:41 Dose: 650 mg Acetylcysteine (Mucomyst 20 Oral / Inh Use Only*) 200 mg NEB BID [facility] Last Admin: 03/10/16 22:47 Dose: 200 mg Albuterol Sulfate (Ventolin 0.083% Nebulizer Soln -) 1 amp NEB Q4H PRN PRN Reason: SHORT OF BREATH/WHEEZING Last Admin: 03/08/16 13:30 Dose: 1 amp Albuterol Sulfate (Ventolin 0.083% Nebulizer Soln -) 1 amp NEB QIDR [facility] Last Admin: 03/11/16 06:57 Dose: 1 amp Amlodipine Besylate (Norvasc -) 10 mg PO DAILY [facility] Last Admin: 03/11/16 09:21 Dose: 10 mg Arformoterol Tartrate (Brovana (Restricted To Pulmonology/Resp) -) 1 amp NEB BID [facility] Last Admin: 03/10/16 22:47 Dose: 1 amp Aspirin (Ecotrin -) 81 mg PO DAILY [facility] Last Admin: 03/11/16 09:21 Dose: 81 mg Calcitriol (Rocaltrol -) 0.25 mcg PO DAILY [facility] Last Admin: 03/11/16 09:19 Dose: 0.25 mcg Calcium Acetate (Phoslo -) 1,337 mg PO TIDCM [facility] Last Admin: 03/11/16 09:20 Dose: 1,337 mg Docusate Sodium (Colace -) 100 mg PO BID PRN PRN Reason: CONSTIPATION Last Admin: 03/11/16 09:21 Dose: 100 mg Duloxetine HCl (Cymbalta -) 20 mg PO DAILY [facility] Last Admin: 03/11/16 09:22 Dose: 20 mg Hydralazine HCl (Apresoline -) 50 mg PO TID [facility] Last Admin: 03/11/16 06:09 Dose: 50 mg Prasugrel (Effient -) 10 mg PO DAILY [facility] Last Admin: 03/11/16 09:23 Dose: 10 mg Prednisone (Deltasone -) 30 mg PO DAILY [facility] Last Admin: 03/11/16 09:20 Dose: 30 mg Pregabalin (Lyrica -) 25 mg PO DAILY [facility] Last Admin: 03/11/16 09:21 Dose: 25 mg Tiotropium [place] (Spiriva -) 1 puff IH DAILY [facility] Last Admin: 03/11/16 09:23 Dose: 1 inh Torsemide (Demadex -) 40 mg PO DAILY [facility] Last Admin: 03/11/16 09:23 Dose: Not Given Torsemide (Demadex -) 40 mg PO ONCE ONE Stop: 03/11/16 16:46 Last Admin: 03/11/16 09:22 Dose: 40 mg - Objective Vital Signs: Vital Signs Temperature 97.4 F L 03/11/16 06:00 Pulse Rate 81 03/11/16 06:00 Respiratory Rate 20 03/11/16 06:00 Blood Pressure 137/72 03/11/16 06:00 O2 Sat by Pulse Oximetry (%) 97 03/10/16 11:00 Constitutional: Yes: No Distress, Calm Cardiovascular: Yes: Regular Rate and Rhythm Respiratory: Yes: On BiPap, Poor Air Entry Gastrointestinal: Yes: Normal Bowel Sounds, Soft Musculoskeletal: Yes: WNL Extremities: Yes: Other Edema: LLE: 2+, RLE: 2+ Neurological: Yes: Alert, Oriented Psychiatric: Yes: Alert Labs: CBC, BMP 03/11/16 00:45 03/10/16 06:30 INR, PTT INR 1.12 (0.82-1.09) 02/18/16 13:00 Assessment/Plan 75 year-old man with a PMH of HTN, PVD, COPD, CKD (baseline Cr 1.9), nephrolithiasis, and chronic LE lymphedema. Admitted in acute renal failure. Acute on chronic renal failure Hyperkalemia Sepsis s Hypertension Peripheral vascular disease Hypercarbic respiratory failure COPD bilateral cellulitis of the legs rsv lung infection pleural effusion plan continue resp physio continue monitoring physiotherapy stable
--- NOTE | 2016-03-11 12:54 | PN ---
Physical Exam: SUBJECTIVE: Patient seen and examined at bedside. Feels well today. Is able to walk more today and breathing is improving. Denies N/V/F/, abd pain, diarrhea. Received one unit of PRBC last night and feels well today. No fevers overnight. OBJECTIVE: Vital Signs Temperature 97.4 F L 03/11/16 06:00 Pulse Rate 96 H 03/11/16 12:28 Respiratory Rate 20 03/11/16 06:00 Blood Pressure 137/72 03/11/16 06:00 O2 Sat by Pulse Oximetry (%) 98 03/11/16 12:28 GENERAL: The patient is awake, alert, and fully oriented, in no acute distress. HEAD: Normal with no signs of trauma. EYES: sclera anicteric, conjunctiva clear. No ptosis. ENT: moist mucous membranes. NECK: Trachea midline, full range of motion LUNGS: Diminished breath sounds, CTA, no wheezing HEART: Regular rate and rhythm, S1, S2 without murmur, rub or gallop. ABDOMEN: Obese, Soft, nontender, nondistended, normoactive bowel sounds, no guarding, no rebound, no hepatosplenomegaly, no masses. EXTREMITIES: warm, well-perfused, B/L cellulitic changes, B/L LE 3+ pitting edema and alvarado crusted lesions. NEUROLOGICAL: Normal speech, gait not observed. PSYCH: Normal mood, normal affect. SKIN: Warm, dry, normal turgor, skin changes as noted above in extremities. Laboratory Results - last 24 hr 03/08/16 03/11/16 10:15 00:45 WBC 12.0 H D RBC 2.92 L Hgb 7.5 L Hct 24.0 L MCV 82.2 MCHC 31.5 L RDW 21.2 H Plt Count 141 MPV 8.2 Blood Type A POSITIVE Antibody Screen Negative Crossmatch See Detail Microbiology 03/08/16 10:15 Blood - Peripheral Venous Blood Culture - Preliminary NO GROWTH OBTAINED AFTER 72 HOURS, INCUBATION TO CONTINUE FOR 2 DAYS. 03/08/16 10:15 Blood - Peripheral Venous Blood Culture - Preliminary NO GROWTH OBTAINED AFTER 72 HOURS, INCUBATION TO CONTINUE FOR 2 DAYS. 03/07/16 15:30 Pleural Fluid Gram Stain - Final 03/07/16 15:30 Pleural Fluid Body Fluid Culture - Final NO GROWTH OF AEROBIC ORGANISMS AFTER 48 HOURS INCUBATION 03/07/16 15:30 Pleural Fluid Anaerobic Culture - Final NO ANAEROBES WERE ISOLATED 03/07/16 15:30 Pleural Fluid AFB Smear Concentration - Final 03/07/16 15:30 Pleural Fluid Mycobacterial Culture - Preliminary 03/07/16 15:30 Pleural Fluid ALANA Preparation - Preliminary 03/07/16 15:30 Pleural Fluid Fungal Culture - Preliminary 02/29/16 17:40 Nasopharyngeal Swab Respiratory Virus Panel - Final 02/25/16 17:30 Blood - Peripheral Venous Blood Culture - Final NO GROWTH AFTER 5 DAYS INCUBATION 02/25/16 17:30 Blood - Peripheral Venous Blood Culture - Final NO GROWTH AFTER 5 DAYS INCUBATION 02/28/16 17:40 Nasopharyngeal Swab Influenza Types A,B Antigen (TONI) - Final 02/28/16 17:40 Nasopharyngeal Swab - Final 02/26/16 06:45 Urine - Urine Clean Catch Urine Culture - Final NO GROWTH OBTAINED 02/18/16 19:15 Blood - Peripheral Venous Blood Culture - Final NO GROWTH AFTER 5 DAYS INCUBATION 02/18/16 19:15 Blood - Peripheral Venous Blood Culture - Final NO GROWTH AFTER 5 DAYS INCUBATION 02/18/16 18:10 Urine - Urine Clean Catch Urine Culture - Final NO GROWTH OBTAINED Active Medications Generic Name Dose Route Start Last Admin Trade Name Freq PRN Reason Stop Dose Admin Acetaminophen 650 mg 03/09/16 16:50 03/09/16 21:41 Tylenol - PO 650 mg Q6H PRN Administration FEVER OR PAIN Acetylcysteine 200 mg 02/26/16 10:00 03/10/16 22:47 Mucomyst 20 Oral / Inh Use Only* NEB 200 mg BID LESLEE Administration Albuterol Sulfate 1 amp 03/06/16 16:01 03/08/16 13:30 Ventolin 0.083% Nebulizer Soln - NEB 1 amp Q4H PRN Administration SHORT OF BREATH/WHEEZING Albuterol Sulfate 1 amp 03/06/16 18:00 03/11/16 12:31 Ventolin 0.083% Nebulizer Soln - NEB 1 amp QIDR LESLEE Administration Amlodipine Besylate 10 mg 03/11/16 08:30 03/11/16 09:21 Norvasc - PO 10 mg DAILY [facility]E Administration Arformoterol Tartrate 1 amp 02/23/16 22:00 03/10/16 22:47 Brovana (Restricted To Pulmonology/Resp) - NEB 1 amp BID L[facility]LEE Administration Aspirin 81 mg 03/11/16 10:00 03/11/16 09:21 Ecotrin - PO 81 mg DAILY [facility]LEE Administration Calcitriol 0.25 mcg 02/24/16 12:45 03/11/16 09:19 Rocaltrol - PO 0.25 mcg DAILY [facility]E Administration Calcium Acetate 1,337 mg 03/09/16 19:21 03/11/16 09:20 Phoslo - PO 1,337 mg TIDCM [facility]E Administration Docusate Sodium 100 mg 03/10/16 17:34 03/11/16 09:21 Colace - PO 100 mg BID PRN Administration CONSTIPATION Duloxetine HCl 20 mg 02/24/16 10:00 03/11/16 09:22 Cymbalta - PO 20 mg DAILY [facility]E Administration Hydralazine HCl 50 mg 02/28/16 22:00 03/11/16 06:09 Apresoline - PO 50 mg TID L[facility]LEE Administration Prasugrel 10 mg 03/11/16 10:00 03/11/16 09:23 Effient - PO 10 mg DAILY [facility]E Administration Prednisone 30 mg 03/09/16 17:30 03/11/16 09:20 Deltasone - PO 30 mg DAILY [facility] Administration Pregabalin 25 mg 03/02/16 11:15 03/11/16 09:21 Lyrica - PO 25 mg DAILY [facility] Administration Tiotropium [place] 1 puff 02/22/16 11:15 03/11/16 09:23 Spiriva - IH 1 inh DAILY [facility] Administration Torsemide 40 mg 03/09/16 10:00 03/11/16 09:23 Demadex - PO Not Given DAILY [facility]LEE Torsemide 40 mg 03/11/16 16:45 03/11/16 09:22 Demadex - PO 03/11/16 16:46 40 mg ONCE ONE Administration ASSESSMENT/PLAN: 75 year-old man with a PMH of HTN, PVD, COPD, CKD (baseline Cr 1.9), nephrolithiasis, and chronic LE lymphedema. Admitted for acute renal failure ( hyperkalemia) and respiratory distress. # Acute on chronic renal failure -limit fluid intake to 1L per day due to SOB. -Today BUN/Cr 149/3.4 (baseline 1.8-1.9), creatinine improving slowly off HD. -torsemide 40 mg po qd -phoslo increased to 1337 mg TID w/meals -goal of phos <5.5 # Acute COPD exacerbation with hypercapnic respiratory failure -SOB improving, can now walk 15 feet before SOB -brovana, albuterol neb q4h PRN, albuterol neb standing qid -prednisone 30 mg (day 3); taper to 20 mg tomorrow -bipap use at night instructed #SOB -improving -Resp virus panel - RSV positive -diuresis with torsemide 40 mg po qd -s/p R thoracentesis. 800 cc fluid removed. -fluid analysis: WBC 232, RBC: 1940, total protein: 2.184, LDH: 91.591, glucose: 215.755, amylase 8.508. -no need for thoracentesis now on L side. pt improving -BiPap added for use at night. #Hematoma -Improving since initial presentation after thoracentesis # Anemia, microcytic -Anemia of chronic disease secondary to CKD, TIBC low -Hgb 7.5, one unit PRBC last night given (s/p 2 unit PRBC this admission); -Transfuse if Hgb <7. -ASA held due to drop in Hgb -resume when Hgb higher & stable # Sepsis secondary to B/L lower extremity cellulitis -resolved -off abx # HTN -hydralazine 50 mg PO TID -norvasc 5 mg po qd #. CHF (diastolic) -torsemide 40 mg qd -Causing his LE edema most likely -will get B/L LE duplex to r/o PE # Hx of Depression -c/w cymbalta 20mg #neuropathy -lyrica 25 mg PO qd # CAD -prasugrel 10 mg PO qd #. FEN -hypocalcemia -c/w calcitriol - f/u BMP # Dispo: monitor on floors. Continue PT, walking. Will discharge hopefully early next week. Problem List - Problems (1) Acute kidney failure Code(s): N17.9 - ACUTE KIDNEY FAILURE, UNSPECIFIED Qualifiers: Qualified Code(s): N17.9 - Acute kidney failure, unspecified (2) COPD exacerbation Code(s): J44.1 - CHRONIC OBSTRUCTIVE PULMONARY DISEASE W (ACUTE) EXACERBATION (3) Hyperkalemia Code(s): E87.5 - HYPERKALEMIA (4) Acute and chronic respiratory failure ([id number]) Code(s): J96.20 - ACUTE AND CHR RESP FAILURE, UNSP W HYPOXIA OR HYPERCAPNIA Qualifiers: Qualified Code(s): J96.21 - Acute and chronic respiratory failure with hypoxia (5) Acute exacerbation of chronic obstructive pulmonary disease (COPD) Code(s): J44.1 - CHRONIC OBSTRUCTIVE PULMONARY DISEASE W (ACUTE) EXACERBATION (6) Acute on chronic diastolic (congestive) heart failure Code(s): I50.33 - ACUTE ON CHRONIC DIASTOLIC (CONGESTIVE) HEART FAILURE (7) Anxiety and depression Code(s): F41.9 - ANXIETY DISORDER, UNSPECIFIED F32.9 - MAJOR DEPRESSIVE DISORDER, SINGLE EPISODE, UNSPECIFIED (8) Cellulitis Code(s): L03.90 - CELLULITIS, UNSPECIFIED (9) Chronic kidney disease (CKD) Code(s): N18.9 - CHRONIC KIDNEY DISEASE, UNSPECIFIED Qualifiers: Qualified Code(s): N18.9 - Chronic kidney disease, unspecified (10) Diastolic CHF Code(s): I50.30 - UNSPECIFIED DIASTOLIC (CONGESTIVE) HEART FAILURE (11) Hyperlipidemia Code(s): E78.5 - HYPERLIPIDEMIA, UNSPECIFIED (12) Hypertension Code(s): I10 - ESSENTIAL (PRIMARY) HYPERTENSION (13) Obesities, morbid Code(s): E66.01 - MORBID (SEVERE) OBESITY DUE TO EXCESS CALORIES Qualifiers: Qualified Code(s): E66.2 - Morbid (severe) obesity with alveolar hypoventilation (14) Respiratory failure with hypoxia and hypercapnia Code(s): J96.91 - RESPIRATORY FAILURE, UNSPECIFIED WITH HYPOXIA J96.92 - RESPIRATORY FAILURE, UNSPECIFIED WITH HYPERCAPNIA Qualifiers: Qualified Code(s): J96.21 - Acute and chronic respiratory failure with hypoxia; J96.22 - Acute and chronic respiratory failure with hypercapnia (15) Shortness of breath Code(s): R06.02 - SHORTNESS OF BREATH (16) Hematoma Code(s): T14.8 - OTHER INJURY OF UNSPECIFIED BODY REGION Visit type - Emergency Visit Emergency Visit: Yes ED Registration Date: 02/18/16 Care time: The patient presented to the Emergency Department on the above date and was hospitalized for further evaluation of their emergent condition. - New Patient This patient is new to me today: No - Critical Care Critical Care patient: No
--- NOTE | 2016-03-11 14:08 | PN ---
Teaching Attending Note Name of Resident: Freddie Strickland ATTENDING PHYSICIAN STATEMENT I saw and evaluated the patient. I reviewed the resident's note and discussed the case with the resident. I agree with the resident's findings and plan as documented. SUBJECTIVE: no SOB , no Pain . he had blood transfusion over night . did not use BIPAP overnight. OBJECTIVE: NAD Cv : RRR Lungs : decreased breath sounds at bases , scattered wheezes ext : 3 + pitting edema , and thick skin with no discharge ASSESSMENT AND PLAN: 75 year-old man with a PMHx of HTN, PVD, COPD, CKD (baseline Cr 1.8), nephrolithiasis, D CHF , CAD s/p stenting in 03/23 and chronic LE lymphedema. presented with SOB and was found to have acute hypercapnic resp failure with acute renal failure . 1- Acute hypercapnic resp failure due to COPD exa and diastolic heart failure and pleural effusions - cont BIPAp q HS , and demadex - cancel pleurocentesis on Sunday as pt sx improved - decrease prednisone to tomorrow 2- cellultis of LE :reoslved . off abx now 3- KARLOS on CKD: off HD .stable Cr on cacitriol and phoslo 4- microcytic anemia. - no evidence of iron def ( ACD ) -s/p transfusion 5- HTN: better . cont HZN and norvasc 6- CAD : stenting 03/23 . cont asa and effient DVT px possible dc early next week pending improvement in functional status for safe dc to home
--- NOTE | 2016-03-11 16:56 | PN ---
Progress Note (short form) - Note Progress Note: Renal Follow up for KARLOS Pt seen and examined at the bedside complains of feeling cold denies sob or chest pain s/p blood transfusion yesterday Vital Signs Temperature 97.8 F 03/11/16 15:47 Pulse Rate 87 03/11/16 15:47 Respiratory Rate 20 03/11/16 15:47 Blood Pressure 136/76 03/11/16 15:47 O2 Sat by Pulse Oximetry (%) 98 03/11/16 12:28 Intake & Output 03/08/16 03/09/16 03/10/16 03/11/16 23:59 23:59 23:59 23:59 Intake Total 1040 1900 1850 600 Output Total 800 1300 3550 1800 Balance 240 600 -1700 -1200 Weight 313 lb 6.4 oz 315 lb 316 lb 3.2 oz Gen: NAD CVS: RRR No M/R Lungs: dec BS throughout the lung rey Abd: Soft NT + Mild distension Ext: > 3+ LE Lymph edema, no cyanosis or clubbing CBC, BMP 03/11/16 00:45 03/10/16 06:30 Current Medications Acetaminophen (Tylenol -) 650 mg PO Q6H PRN PRN Reason: FEVER OR PAIN Last Admin: 03/09/16 21:41 Dose: 650 mg Acetylcysteine (Mucomyst 20 Oral / Inh Use Only*) 200 mg NEB BID [facility] Last Admin: 03/10/16 22:47 Dose: 200 mg Albuterol Sulfate (Ventolin 0.083% Nebulizer Soln -) 1 amp NEB Q4H PRN PRN Reason: SHORT OF BREATH/WHEEZING Last Admin: 03/08/16 13:30 Dose: 1 amp Albuterol Sulfate (Ventolin 0.083% Nebulizer Soln -) 1 amp NEB QIDR [facility] Last Admin: 03/11/16 12:31 Dose: 1 amp Amlodipine Besylate (Norvasc -) 10 mg PO DAILY [facility] Last Admin: 03/11/16 14:54 Dose: Not Given Arformoterol Tartrate (Brovana (Restricted To Pulmonology/Resp) -) 1 amp NEB BID [facility] Last Admin: 03/10/16 22:47 Dose: 1 amp Aspirin (Ecotrin -) 81 mg PO DAILY [facility] Last Admin: 03/11/16 09:21 Dose: 81 mg Calcitriol (Rocaltrol -) 0.25 mcg PO DAILY [facility] Last Admin: 03/11/16 09:19 Dose: 0.25 mcg Calcium Acetate (Phoslo -) 1,337 mg PO TIDCM [facility] Last Admin: 03/11/16 12:55 Dose: 1,337 mg Docusate Sodium (Colace -) 100 mg PO BID PRN PRN Reason: CONSTIPATION Last Admin: 03/11/16 09:21 Dose: 100 mg Duloxetine HCl (Cymbalta -) 20 mg PO DAILY [facility] Last Admin: 03/11/16 09:22 Dose: 20 mg Hydralazine HCl (Apresoline -) 50 mg PO TID [facility] Last Admin: 03/11/16 14:54 Dose: 50 mg Prasugrel (Effient -) 10 mg PO DAILY [facility] Last Admin: 03/11/16 09:23 Dose: 10 mg Prednisone (Deltasone -) 20 mg PO DAILY [facility] Pregabalin (Lyrica -) 25 mg PO DAILY [facility] Last Admin: 03/11/16 09:21 Dose: 25 mg Tiotropium [place] (Spiriva -) 1 puff IH DAILY [facility] Last Admin: 03/11/16 09:23 Dose: 1 inh Torsemide (Demadex -) 40 mg PO DAILY [facility] Last Admin: 03/11/16 09:23 Dose: Not Given A/P 75 year old Gentleman with PMhx of CKD Stage 3 (baseline Cr 1.9), Hx of Nephrolithiasis, Hypertension, COPD, CHF, PVD, Chronic LE lymph edema who was sent into the ED from wound care for increased lethargy and decreased urination for several days with KARLOS with BUN/Cr of 115/7.2 and K of 6.5 #Acute Renal Failure on CKD stage 3 Cr improving, peristnelty high bun no uremia no indcation for [employer] continue to monitor renal function for improvement #Fluid overload/LE edema/Pleural effusions/COPD/RSV Continue Torsemide Daily s/p Thoracenteiss on Prednisone for COPD being tapered BIPAP as needed #Hypocalcemia/Hyperphosphatemia/Secondary Hyperparatyrodism Corrected ca is within normal limits now Phoslo to 1334 TID with meals with goal phos < 5.5 continue Calcitriol #Microcytic Anemia Trend CBC s/p prbc transfusion s/p Epogen 99968 units 03/09 - will redose Juan Pablo Johnson DO
[2016-03-11] MEDS: ARFORMOTEROL TARTRATE 15 MCG/2 ML VIAL NEB SCH (22:40)
[2016-03-11] MEDS: ACETYLCYSTEINE 20% 200MG/ML 4 ML VIAL *FOR ORAL / INH USE ONLY NEB SCH (22:45)
[2016-03-12] MEDS: ALBUTEROL SO4 0.083% IH SOL 2.5 MG/3 ML VIAL.NEB. NEB SCH ×4 (00:05→23:57)
[2016-03-12] MEDS: hydrALAZINE HCL 50 MG TABLET (FP) PO SCH ×3 (06:47→22:00)
[2016-03-12] MEDS: ALBUTEROL SO4 0.083% IH SOL 2.5 MG/3 ML VIAL.NEB. NEB PRN (07:18)
[2016-03-12] MEDS: CALCIUM ACETATE 667 MG CAPSULE (FP) PO SCH ×3 (08:30→18:03)
[2016-03-12] MEDS ORDERED: PT OWN MED DRAWER 7, Y5N ONE (10:16)
[2016-03-12] MEDS: TIOTROPIUM BROMIDE 18 MCG/INH (DEVICE W/ 5 CAPSULES) IH SCH (10:22)
[2016-03-12] MEDS: ASPIRIN COATED 81 MG TABLET.EC PO SCH (10:22)
[2016-03-12] MEDS: CALCITRIOL 0.25 MCG CAPSULE (FP) PO SCH (10:22)
[2016-03-12] MEDS: PREGABALIN 25 MG CAPSULE PO SCH (10:22)
[2016-03-12] MEDS: TORSEMIDE 20 MG TABLET (FP) PO SCH (10:22)
[2016-03-12] MEDS: predniSONE 20 MG TABLET (UD) PO SCH (10:22)
[2016-03-12] MEDS: amLODIPine BESYLATE 10 MG TABLET (FP) PO SCH (10:22)
[2016-03-12] MEDS: PRASUGREL HCL 10 MG TAB PO SCH (10:23)
[2016-03-12] MEDS: DULoxetine HCL 20 MG CAPSULE.DR (FP) PO SCH (10:23)
[2016-03-12] MEDS: ARFORMOTEROL TARTRATE 15 MCG/2 ML VIAL NEB SCH ×2 (10:30→21:46)
[2016-03-12] MEDS: ACETYLCYSTEINE 20% 200MG/ML 4 ML VIAL *FOR ORAL / INH USE ONLY NEB SCH ×2 (10:30→21:47)
--- NOTE | 2016-03-12 15:29 | PN ---
Progress Note, Physician History of Present Illness: stable on nasal cannula - Current Medication List Current Medications: Active Medications Acetaminophen (Tylenol -) 650 mg PO Q6H PRN PRN Reason: FEVER OR PAIN Last Admin: 03/09/16 21:41 Dose: 650 mg Acetylcysteine (Mucomyst 20 Oral / Inh Use Only*) 200 mg NEB BID [facility] Last Admin: 03/12/16 10:30 Dose: 200 mg Albuterol Sulfate (Ventolin 0.083% Nebulizer Soln -) 1 amp NEB Q4H PRN PRN Reason: SHORT OF BREATH/WHEEZING Last Admin: 03/12/16 07:18 Dose: 1 amp Albuterol Sulfate (Ventolin 0.083% Nebulizer Soln -) 1 amp NEB QIDR [facility] Last Admin: 03/12/16 11:41 Dose: Not Given Amlodipine Besylate (Norvasc -) 10 mg PO DAILY [facility] Last Admin: 03/12/16 10:22 Dose: 10 mg Arformoterol Tartrate (Brovana (Restricted To Pulmonology/Resp) -) 1 amp NEB BID [facility] Last Admin: 03/12/16 10:30 Dose: 1 amp Aspirin (Ecotrin -) 81 mg PO DAILY [facility] Last Admin: 03/12/16 10:22 Dose: 81 mg Calcitriol (Rocaltrol -) 0.25 mcg PO DAILY [facility] Last Admin: 03/12/16 10:22 Dose: 0.25 mcg Calcium Acetate (Phoslo -) 1,334 mg PO TIDCM [facility] Last Admin: 03/12/16 13:11 Dose: 1,334 mg Docusate Sodium (Colace -) 100 mg PO BID PRN PRN Reason: CONSTIPATION Last Admin: 03/11/16 09:21 Dose: 100 mg Duloxetine HCl (Cymbalta -) 20 mg PO DAILY [facility] Last Admin: 03/12/16 10:23 Dose: 20 mg Hydralazine HCl (Apresoline -) 50 mg PO TID [facility] Last Admin: 03/12/16 13:11 Dose: 50 mg Prasugrel (Effient -) 10 mg PO DAILY [facility] Last Admin: 03/12/16 10:23 Dose: 10 mg Prednisone (Deltasone -) 20 mg PO DAILY [facility] Last Admin: 03/12/16 10:22 Dose: 20 mg Pregabalin (Lyrica -) 25 mg PO DAILY [facility] Last Admin: 03/12/16 10:22 Dose: 25 mg Tiotropium [place] (Spiriva -) 1 puff IH DAILY [facility] Last Admin: 03/12/16 10:22 Dose: 1 inh Torsemide (Demadex -) 40 mg PO DAILY [facility] Last Admin: 03/12/16 10:22 Dose: 40 mg - Objective Vital Signs: Vital Signs Temperature 98.1 F 03/12/16 06:00 Pulse Rate 86 03/12/16 13:14 Respiratory Rate 20 03/12/16 13:14 Blood Pressure 144/60 03/12/16 13:14 O2 Sat by Pulse Oximetry (%) 97 03/12/16 11:39 Constitutional: Yes: No Distress, Calm Neck: Yes: Supple Cardiovascular: Yes: Regular Rate and Rhythm Respiratory: Yes: On Nasal O2, Poor Air Entry, Other Gastrointestinal: Yes: Normal Bowel Sounds, Soft Extremities: Yes: WNL Edema: LLE: 2+, RLE: 2+ Neurological: Yes: Alert, Oriented Psychiatric: Yes: Alert Labs: CBC, BMP 03/11/16 00:45 03/10/16 06:30 INR, PTT INR 1.12 (0.82-1.09) 02/18/16 13:00 Assessment/Plan 75 year-old man with a PMH of HTN, PVD, COPD, CKD (baseline Cr 1.9), nephrolithiasis, and chronic LE lymphedema. Admitted in acute renal failure. Acute on chronic renal failure Hyperkalemia Sepsis s Hypertension Peripheral vascular disease Hypercarbic respiratory failure COPD bilateral cellulitis of the legs rsv lung infection pleural effusion plan continue resp physio continue monitoring physiotherapy stable
[2016-03-12] MEDS ORDERED: predniSONE 20 MG TABLET (UD) PO SCH (17:30)
--- NOTE | 2016-03-12 18:09 | PN ---
Progress Note (short form) - Note Progress Note: Subjective: no fever or chills, cont to feel better Objective: Vital Signs: Last Vital Signs Temp Pulse Resp BP Pulse Ox 98.1 F 86 20 144/60 97 03/12/16 06:00 03/12/16 13:14 03/12/16 13:14 03/12/16 13:14 03/12/16 11:39 Physical Exam: NAD Cv : RRR Lungs : decreased breath sounds at bases , scattered wheezes ext : 3 + pitting edema , and thick skin with no discharge ASSESSMENT AND PLAN: 75 year-old man with a PMHx of HTN, PVD, COPD, CKD (baseline Cr 1.8), nephrolithiasis, D CHF , CAD s/p stenting in 03/23 and chronic LE lymphedema. presented with SOB and was found to have acute hypercapnic resp failure with acute renal failure . 1- Acute hypercapnic resp failure due to COPD exa and diastolic heart failure and pleural effusions - cont BIPAp q HS , and demadex - cont prednisone taper , 20 mg /day now ( day 1 ) 2- cellultis of LE :resolved . off abx now 3- KARLOS on CKD: off HD .stable Cr on cacitriol and phosl repeat BMP in am 4- microcytic anemia. - no evidence of iron def ( ACD ) -s/p transfusion - repeat CBC hawa 5- HTN: better . cont HZN and norvasc 6- CAD : stenting 03/23 . cont asa and effient DVT px need aggressive PT for a safe home dc . Visit type - Emergency Visit Emergency Visit: Yes ED Registration Date: 02/18/16 Care time: The patient presented to the Emergency Department on the above date and was hospitalized for further evaluation of their emergent condition. - New Patient This patient is new to me today: No - Critical Care Critical Care patient: No
[2016-03-13] MEDS: ACETAMINOPHEN 325 MG TABLET (FP) PO PRN (05:53)
[2016-03-13] MEDS: hydrALAZINE HCL 50 MG TABLET (FP) PO SCH ×4 (05:55→21:52)
[2016-03-13] MEDS: ALBUTEROL SO4 0.083% IH SOL 2.5 MG/3 ML VIAL.NEB. NEB SCH ×4 (06:25→23:36)
[2016-03-13 07:37] LABS: MCH 26.5 pg (25.7-33.7); MCHC 31.7 g/dl (32.0-35.9); MEAN CELL VOLUME 83.4 fl (80-96); MEAN PLT VOLUME 7.7 fl (7.5-11.1); PLATELET COUNT 100 K/MM3 (134-434); RDW 22.5 % (11.9-15.9)
[2016-03-13 08:03] LABS: CALCIUM 8.1 mg/dL (8.5-10.1); CREATININE 3.4 mg/dL (0.7-1.3)
[2016-03-13] MEDS: CALCIUM ACETATE 667 MG CAPSULE (FP) PO SCH ×3 (08:53→16:49)
[2016-03-13] MEDS: ARFORMOTEROL TARTRATE 15 MCG/2 ML VIAL NEB SCH ×2 (10:14→21:56)
[2016-03-13] MEDS: ACETYLCYSTEINE 20% 200MG/ML 4 ML VIAL *FOR ORAL / INH USE ONLY NEB SCH ×2 (10:15→21:56)
[2016-03-13] MEDS ORDERED: POTASSIUM CHLORIDE TABS 20 MEQ TABLET.ER (FP) PO ONE (10:16)
[2016-03-13] MEDS ORDERED: PT OWN MED DRAWER 7, Y5N ONE (10:50)
[2016-03-13] MEDS: ASPIRIN COATED 81 MG TABLET.EC PO SCH (10:53)
[2016-03-13] MEDS: amLODIPine BESYLATE 10 MG TABLET (FP) PO SCH (10:53)
[2016-03-13] MEDS: TORSEMIDE 20 MG TABLET (FP) PO SCH (10:53)
[2016-03-13] MEDS: PREGABALIN 25 MG CAPSULE PO SCH (10:53)
[2016-03-13] MEDS: CALCITRIOL 0.25 MCG CAPSULE (FP) PO SCH (10:53)
[2016-03-13] MEDS: predniSONE 20 MG TABLET (UD) PO SCH (10:53)
[2016-03-13] MEDS: PRASUGREL HCL 10 MG TAB PO SCH (10:54)
[2016-03-13] MEDS: DULoxetine HCL 20 MG CAPSULE.DR (FP) PO SCH (10:55)
[2016-03-13] MEDS: TIOTROPIUM BROMIDE 18 MCG/INH (DEVICE W/ 5 CAPSULES) IH SCH (10:55)
[2016-03-13] MEDS ORDERED: PREGABALIN 25 MG CAPSULE PO SCH (11:52)
[2016-03-13] MEDS ORDERED: PREGABALIN 25 MG CAPSULE PO ONE (12:00)
[2016-03-13] MEDS ORDERED: EPOETIN ALFA 20,000 UNIT/1 ML VIAL SQ ONE (12:30)
--- NOTE | 2016-03-13 12:39 | PN ---
Progress Note, Physician History of Present Illness: does not feel well today could not sleep last night feels cold on bipap - Current Medication List Current Medications: Active Medications Acetaminophen (Tylenol -) 650 mg PO Q6H PRN PRN Reason: FEVER OR PAIN Last Admin: 03/13/16 05:53 Dose: 650 mg Acetylcysteine (Mucomyst 20 Oral / Inh Use Only*) 200 mg NEB BID [facility] Last Admin: 03/13/16 10:15 Dose: 200 mg Albuterol Sulfate (Ventolin 0.083% Nebulizer Soln -) 1 amp NEB Q4H PRN PRN Reason: SHORT OF BREATH/WHEEZING Last Admin: 03/12/16 07:18 Dose: 1 amp Albuterol Sulfate (Ventolin 0.083% Nebulizer Soln -) 1 amp NEB QIDR [facility] Last Admin: 03/13/16 11:11 Dose: Not Given Amlodipine Besylate (Norvasc -) 10 mg PO DAILY [facility] Last Admin: 03/13/16 10:53 Dose: 10 mg Arformoterol Tartrate (Brovana (Restricted To Pulmonology/Resp) -) 1 amp NEB BID [facility] Last Admin: 03/13/16 10:14 Dose: 1 amp Aspirin (Ecotrin -) 81 mg PO DAILY [facility] Last Admin: 03/13/16 10:53 Dose: 81 mg Calcitriol (Rocaltrol -) 0.25 mcg PO DAILY [facility] Last Admin: 03/13/16 10:53 Dose: 0.25 mcg Calcium Acetate (Phoslo -) 1,334 mg PO TIDCM [facility] Last Admin: 03/13/16 08:53 Dose: 1,334 mg Docusate Sodium (Colace -) 100 mg PO BID PRN PRN Reason: CONSTIPATION Last Admin: 03/11/16 09:21 Dose: 100 mg Duloxetine HCl (Cymbalta -) 20 mg PO DAILY [facility] Last Admin: 03/13/16 10:55 Dose: 20 mg Hydralazine HCl (Apresoline -) 50 mg PO TID [facility] Last Admin: 03/13/16 05:55 Dose: 50 mg Prasugrel (Effient -) 10 mg PO DAILY [facility] Last Admin: 03/13/16 10:54 Dose: 10 mg Prednisone (Deltasone -) 20 mg PO DAILY [facility] Last Admin: 03/13/16 10:53 Dose: 20 mg Pregabalin (Lyrica -) 50 mg PO DAILY [facility] Tiotropium [place] (Spiriva -) 1 puff IH DAILY [facility] Last Admin: 03/13/16 10:55 Dose: 1 inh Torsemide (Demadex -) 40 mg PO DAILY [facility] Last Admin: 03/13/16 10:53 Dose: 40 mg - Objective Vital Signs: Vital Signs Temperature 98.7 F 03/13/16 06:00 Pulse Rate 89 03/13/16 10:13 Respiratory Rate 20 03/13/16 06:00 Blood Pressure 139/65 03/13/16 06:00 O2 Sat by Pulse Oximetry (%) 96 03/13/16 10:13 Constitutional: Yes: Calm, Mild Distress Cardiovascular: Yes: Regular Rate and Rhythm Respiratory: Yes: On BiPap, Poor Air Entry Gastrointestinal: Yes: Normal Bowel Sounds, Soft Musculoskeletal: Yes: Other Extremities: Yes: Other Edema: LLE: 2+, RLE: 2+ Neurological: Yes: Alert, Oriented Psychiatric: Yes: Alert, Oriented Labs: CBC, BMP 03/13/16 06:00 03/13/16 06:00 INR, PTT INR 1.12 (0.82-1.09) 02/18/16 13:00 Assessment/Plan 75 year-old man with a PMH of HTN, PVD, COPD, CKD (baseline Cr 1.9), nephrolithiasis, and chronic LE lymphedema. Admitted in acute renal failure. Acute on chronic renal failure Hyperkalemia Sepsis s Hypertension Peripheral vascular disease Hypercarbic respiratory failure COPD bilateral cellulitis of the legs rsv lung infection pleural effusion plan continue resp physio continue monitoring physiotherapy stable awaiting for pleural tap on the other side
--- NOTE | 2016-03-13 12:52 | PN ---
Progress Note, Physician History of Present Illness: seen and examined today, sob, on bipap. states he was feeling better the past few days but this am developed acute sob. no chest pain. - Current Medication List Current Medications: Active Medications Acetaminophen (Tylenol -) 650 mg PO Q6H PRN PRN Reason: FEVER OR PAIN Last Admin: 03/13/16 05:53 Dose: 650 mg Acetylcysteine (Mucomyst 20 Oral / Inh Use Only*) 200 mg NEB BID [facility] Last Admin: 03/13/16 10:15 Dose: 200 mg Albuterol Sulfate (Ventolin 0.083% Nebulizer Soln -) 1 amp NEB Q4H PRN PRN Reason: SHORT OF BREATH/WHEEZING Last Admin: 03/12/16 07:18 Dose: 1 amp Albuterol Sulfate (Ventolin 0.083% Nebulizer Soln -) 1 amp NEB QIDR [facility] Last Admin: 03/13/16 11:11 Dose: Not Given Amlodipine Besylate (Norvasc -) 10 mg PO DAILY [facility] Last Admin: 03/13/16 10:53 Dose: 10 mg Arformoterol Tartrate (Brovana (Restricted To Pulmonology/Resp) -) 1 amp NEB BID [facility] Last Admin: 03/13/16 10:14 Dose: 1 amp Aspirin (Ecotrin -) 81 mg PO DAILY [facility] Last Admin: 03/13/16 10:53 Dose: 81 mg Calcitriol (Rocaltrol -) 0.25 mcg PO DAILY [facility] Last Admin: 03/13/16 10:53 Dose: 0.25 mcg Calcium Acetate (Phoslo -) 1,334 mg PO TIDCM [facility] Last Admin: 03/13/16 08:53 Dose: 1,334 mg Docusate Sodium (Colace -) 100 mg PO BID PRN PRN Reason: CONSTIPATION Last Admin: 03/11/16 09:21 Dose: 100 mg Duloxetine HCl (Cymbalta -) 20 mg PO DAILY [facility] Last Admin: 03/13/16 10:55 Dose: 20 mg Hydralazine HCl (Apresoline -) 50 mg PO TID [facility] Last Admin: 03/13/16 05:55 Dose: 50 mg Prasugrel (Effient -) 10 mg PO DAILY [facility] Last Admin: 03/13/16 10:54 Dose: 10 mg Prednisone (Deltasone -) 20 mg PO DAILY [facility] Last Admin: 03/13/16 10:53 Dose: 20 mg Pregabalin (Lyrica -) 50 mg PO DAILY [facility] Tiotropium [place] (Spiriva -) 1 puff IH DAILY [facility] Last Admin: 03/13/16 10:55 Dose: 1 inh Torsemide (Demadex -) 40 mg PO DAILY [facility] Last Admin: 03/13/16 10:53 Dose: 40 mg - Objective Vital Signs: Vital Signs Temperature 98.7 F 03/13/16 06:00 Pulse Rate 89 03/13/16 10:13 Respiratory Rate 20 03/13/16 06:00 Blood Pressure 139/65 03/13/16 06:00 O2 Sat by Pulse Oximetry (%) 96 03/13/16 10:13 Constitutional: Yes: No Distress, Calm, Obese Eyes: Yes: WNL, Conjunctiva Clear, EOM Intact, PERRL HENT: Yes: WNL, Atraumatic, Normocephalic Neck: Yes: WNL, Supple, Trachea Midline Cardiovascular: Yes: S1, S2. No: Bradycardia, Tachycardia, Bruit, JVD, Gallop, Murmur, Rub, S3, S4, Varicosities Respiratory: Yes: Regular, Diminished, On BiPap, Rhonchi Gastrointestinal: Yes: WNL, Normal Bowel Sounds, Soft. No: Distention, Tenderness Musculoskeletal: Yes: Muscle Weakness Extremities: Yes: Erythema Edema: Yes Edema: LLE: 3+, RLE: 3+ Peripheral Pulses WNL: Yes Peripheral Pulses: Left Doralis Pedis: 2+, Right Dorsalis Pedis: 2+ Integumentary: Yes: Venous Stasis Changes Neurological: Yes: Alert, Oriented Psychiatric: Yes: Alert, Oriented Labs: CBC, BMP 03/13/16 06:00 03/13/16 06:00 INR, PTT INR 1.12 (0.82-1.09) 02/18/16 13:00 - ....Imaging Chest X-ray: Report Reviewed, Image Reviewed EKG: Report Reviewed, Image Reviewed Other: Report Reviewed, Image Reviewed Assessment/Plan 75 year old man with a history of HTN, COPD on home O2, Chronic combined systolic/diastolic CHF, CKD, JOY, CAD moderate LV systolic dysfunction, cardiac cath 03/2015 showed 2VD with RCA and LAD disease. He underwent PCI with ABDON of RCA 03/2015 and staged PCI of LAD in 04/2015 with significant improvement in symptoms. He has been feeling well since then, now admitted with cellulitis, sepsis, TARYN on CKD and sob SOB-multifactorial, AE COPD, RSV, pleural effusions, acute on chronic diastolic CHF, sepsis -s/p thoracentesis -cont bipap as needed -cont torsemide and monitor I/Os, bun/creat Acute on Chronic diastolic CHF NYHA class IV, LV systolic function normalized post PCI: -cont diuresis -monitor I/Os -monitor BUN/Creat, electrolytes, keep k=4, Mg=2 -not on bblocker due to severe COPD -not on PIPER-I currently due to fluctuating renal function -echo showed normal LV systolic function, no sig valvular abnl CAD-PCI with ABDON of RCA 03/2015 and staged PCI of LAD in 04/2015 -back on effient and ASA, plan to dc effient 04/2016 -monitor H/H -cont lipitor Anemia-guaiac negative. -Monitor H/H -transfuse prn
--- NOTE | 2016-03-13 14:14 | PN ---
Addendum entered and electronically signed by Freddie Strickland RES 03/13/16 14:37 : Will now require L thoracentesis. Stopped ASA 81 and Prasugrel 10 mg. Will require these meds to be stopped for 5 days prior to thoracentesis. Day 1 off meds will be tomorrow as he has already received the meds today. Original Note: Physical Exam: SUBJECTIVE: Patient seen and examined at bedside. Pt did not sleep well last night as he was flat on bed and he cannot sleep in that position. He has shooting, electric pain in L leg today which is causing him to scream in pain when he moves. He states his breathing feels the same as yesterday. He denies N /V/F/C. Used bipap until 4am last night. OBJECTIVE: Vital Signs Temperature 98.1 F 03/13/16 10:00 Pulse Rate 89 03/13/16 10:13 Respiratory Rate 22 03/13/16 10:00 Blood Pressure 148/68 03/13/16 10:00 O2 Sat by Pulse Oximetry (%) 96 03/13/16 10:13 GENERAL: The patient is awake, alert, and fully oriented, in no acute distress. Panting when seen. HEAD: Normal with no signs of trauma. EYES: sclera anicteric, conjunctiva clear. No ptosis. ENT: moist mucous membranes. NECK: Trachea midline, full range of motion LUNGS: Diminished breath sounds, CTA, no wheezing HEART: Regular rate and rhythm, S1, S2 without murmur, rub or gallop. ABDOMEN: Obese, Soft, nontender, nondistended, normoactive bowel sounds, no guarding, no rebound, no hepatosplenomegaly, no masses. EXTREMITIES: warm, well-perfused, B/L cellulitic changes, B/L LE 3+ pitting edema and alvarado crusted lesions. Eryhthema improving. NEUROLOGICAL: Normal speech, gait not observed. PSYCH: Normal mood, normal affect. SKIN: Warm, dry, normal turgor, skin changes as noted above in extremities. Laboratory Results - last 24 hr 03/13/16 03/13/16 03/13/16 06:00 06:00 06:00 WBC 6.0 D RBC 2.68 L Hgb 7.1 L Hct 22.4 L MCV 83.4 MCHC 31.7 L RDW 22.5 H Plt Count 100 L D MPV 7.7 Sodium 143 Potassium 3.2 L Chloride 100 Carbon Dioxide 30 Anion Gap 13 BUN 136 H* Creatinine 3.4 H Random Glucose 97 D Calcium 8.1 L Blood Type A POSITIVE Antibody Screen Negative Microbiology 03/08/16 10:15 Blood - Peripheral Venous Blood Culture - Final NO GROWTH AFTER 5 DAYS INCUBATION 03/08/16 10:15 Blood - Peripheral Venous Blood Culture - Final NO GROWTH AFTER 5 DAYS INCUBATION 03/07/16 15:30 Pleural Fluid Gram Stain - Final 03/07/16 15:30 Pleural Fluid Body Fluid Culture - Final NO GROWTH OF AEROBIC ORGANISMS AFTER 48 HOURS INCUBATION 03/07/16 15:30 Pleural Fluid Anaerobic Culture - Final NO ANAEROBES WERE ISOLATED 03/07/16 15:30 Pleural Fluid AFB Smear Concentration - Final 03/07/16 15:30 Pleural Fluid Mycobacterial Culture - Preliminary 03/07/16 15:30 Pleural Fluid ALANA Preparation - Preliminary 03/07/16 15:30 Pleural Fluid Fungal Culture - Preliminary 02/29/16 17:40 Nasopharyngeal Swab Respiratory Virus Panel - Final 02/25/16 17:30 Blood - Peripheral Venous Blood Culture - Final NO GROWTH AFTER 5 DAYS INCUBATION 02/25/16 17:30 Blood - Peripheral Venous Blood Culture - Final NO GROWTH AFTER 5 DAYS INCUBATION 02/28/16 17:40 Nasopharyngeal Swab Influenza Types A,B Antigen (TONI) - Final 02/28/16 17:40 Nasopharyngeal Swab - Final 02/26/16 06:45 Urine - Urine Clean Catch Urine Culture - Final NO GROWTH OBTAINED 02/18/16 19:15 Blood - Peripheral Venous Blood Culture - Final NO GROWTH AFTER 5 DAYS INCUBATION 02/18/16 19:15 Blood - Peripheral Venous Blood Culture - Final NO GROWTH AFTER 5 DAYS INCUBATION 02/18/16 18:10 Urine - Urine Clean Catch Urine Culture - Final NO GROWTH OBTAINED Active Medications Generic Name Dose Route Start Last Admin Trade Name Freq PRN Reason Stop Dose Admin Acetaminophen 650 mg 03/09/16 16:50 03/13/16 05:53 Tylenol - PO 650 mg Q6H PRN Administration FEVER OR PAIN Acetylcysteine 200 mg 02/26/16 10:00 03/13/16 10:15 Mucomyst 20 Oral / Inh Use Only* NEB 200 mg BID [facility] Administration Albuterol Sulfate 1 amp 03/06/16 16:01 03/12/16 07:18 Ventolin 0.083% Nebulizer Soln - NEB 1 amp Q4H PRN Administration SHORT OF BREATH/WHEEZING Albuterol Sulfate 1 amp 03/06/16 18:00 03/13/16 11:11 Ventolin 0.083% Nebulizer Soln - NEB Not Given QIDR [facility] Amlodipine Besylate 10 mg 03/11/16 08:30 03/13/16 10:53 Norvasc - PO 10 mg DAILY [facility] Administration Arformoterol Tartrate 1 amp 02/23/16 22:00 03/13/16 10:14 Brovana (Restricted To Pulmonology/Resp) - NEB 1 amp BID [facility] Administration Aspirin 81 mg 03/11/16 10:00 03/13/16 10:53 Ecotrin - PO 81 mg DAILY [facility] Administration Calcitriol 0.25 mcg 02/24/16 12:45 03/13/16 10:53 Rocaltrol - PO 0.25 mcg DAILY [facility] Administration Calcium Acetate 1,334 mg 03/12/16 12:00 03/13/16 12:55 Phoslo - PO 1,334 mg TIDCM [facility] Administration Docusate Sodium 100 mg 03/10/16 17:34 03/11/16 09:21 Colace - PO 100 mg BID PRN Administration CONSTIPATION Duloxetine HCl 20 mg 02/24/16 10:00 03/13/16 10:55 Cymbalta - PO 20 mg DAILY [facility] Administration Hydralazine HCl 50 mg 02/28/16 22:00 03/13/16 12:59 Apresoline - PO Not Given TID [facility] Prasugrel 10 mg 03/11/16 10:00 03/13/16 10:54 Effient - PO 10 mg DAILY [facility] Administration Prednisone 20 mg 03/12/16 10:00 03/13/16 10:53 Deltasone - PO 20 mg DAILY [facility] Administration Pregabalin 50 mg 03/14/16 10:00 Lyrica - PO DAILY [facility] Tiotropium [place] 1 puff 02/22/16 11:15 03/13/16 10:55 Spiriva - IH 1 inh DAILY [facility] Administration Torsemide 40 mg 03/09/16 10:00 03/13/16 10:53 Demadex - PO 40 mg DAILY [facility] Administration ASSESSMENT/PLAN: 75 year-old man with a PMH of HTN, PVD, COPD, CKD (baseline Cr 1.9), nephrolithiasis, and chronic LE lymphedema. Admitted for acute renal failure ( hyperkalemia) and respiratory distress. # Acute on chronic renal failure -limit fluid intake to 1L per day due to SOB. -Today BUN/Cr 136/3.4 (baseline 1.8-1.9), creatinine improving slowly off HD. -torsemide 40 mg po qd -phoslo increased to 1337 mg TID w/meals -goal of phos <5.5 # Acute COPD exacerbation with hypercapnic respiratory failure -Had trouble sleeping last night due to laying flat. -SOB improving -brovana, albuterol neb q4h PRN, albuterol neb standing qid -prednisone 20 mg PO (day 2), c/w taper -bipap use at night instructed #SOB -improving -Resp virus panel - RSV positive -diuresis with torsemide 40 mg po qd -s/p R thoracentesis. 800 cc fluid removed. -fluid analysis: WBC 232, RBC: 1940, total protein: 2.184, LDH: 91.591, glucose: 215.755, amylase 8.508. -no need for thoracentesis now on L side. pt improving -Called Dr. Box's service this AM and informed them to cancel L thoracentesis. -BiPap use at night. #Hematoma -Improved # Anemia, microcytic -Anemia of chronic disease secondary to CKD, TIBC low -Hgb 7.1 (s/p 2 unit PRBC this admission); -Transfuse if Hgb <7. -ASA held due to drop in Hgb -resume when Hgb higher & stable -Epoetin 20,000 units sq 3 times a week # Sepsis secondary to B/L lower extremity cellulitis -resolved -off abx # HTN -hydralazine 50 mg PO TID -norvasc 10 mg po qd #. CHF (diastolic) -torsemide 40 mg qd -Causing his LE edema most likely -will get B/L LE duplex to r/o PE # Hx of Depression -c/w cymbalta 20mg #neuropathy -sharp, electric pain in L leg -lyrica increased to 50 mg PO qd # CAD -prasugrel 10 mg PO qd -until 04/2016 #. FEN -hypocalcemia -c/w calcitriol - f/u BMP # Dispo: monitor on floors. Continue PT, walking. Will discharge hopefully early next week. Problem List - Problems (1) Acute kidney failure Code(s): N17.9 - ACUTE KIDNEY FAILURE, UNSPECIFIED Qualifiers: Qualified Code(s): N17.9 - Acute kidney failure, unspecified (2) COPD exacerbation Code(s): J44.1 - CHRONIC OBSTRUCTIVE PULMONARY DISEASE W (ACUTE) EXACERBATION (3) Hyperkalemia Code(s): E87.5 - HYPERKALEMIA (4) Acute and chronic respiratory failure ([id number]) Code(s): J96.20 - ACUTE AND CHR RESP FAILURE, UNSP W HYPOXIA OR HYPERCAPNIA Qualifiers: Qualified Code(s): J96.21 - Acute and chronic respiratory failure with hypoxia (5) Acute exacerbation of chronic obstructive pulmonary disease (COPD) Code(s): J44.1 - CHRONIC OBSTRUCTIVE PULMONARY DISEASE W (ACUTE) EXACERBATION (6) Acute on chronic diastolic (congestive) heart failure Code(s): I50.33 - ACUTE ON CHRONIC DIASTOLIC (CONGESTIVE) HEART FAILURE (7) Anxiety and depression Code(s): F41.9 - ANXIETY DISORDER, UNSPECIFIED F32.9 - MAJOR DEPRESSIVE DISORDER, SINGLE EPISODE, UNSPECIFIED (8) Cellulitis Code(s): L03.90 - CELLULITIS, UNSPECIFIED (9) Chronic kidney disease (CKD) Code(s): N18.9 - CHRONIC KIDNEY DISEASE, UNSPECIFIED Qualifiers: Qualified Code(s): N18.9 - Chronic kidney disease, unspecified (10) Diastolic CHF Code(s): I50.30 - UNSPECIFIED DIASTOLIC (CONGESTIVE) HEART FAILURE (11) Hyperlipidemia Code(s): E78.5 - HYPERLIPIDEMIA, UNSPECIFIED (12) Hypertension Code(s): I10 - ESSENTIAL (PRIMARY) HYPERTENSION (13) Obesities, morbid Code(s): E66.01 - MORBID (SEVERE) OBESITY DUE TO EXCESS CALORIES Qualifiers: Qualified Code(s): E66.2 - Morbid (severe) obesity with alveolar hypoventilation (14) Respiratory failure with hypoxia and hypercapnia Code(s): J96.91 - RESPIRATORY FAILURE, UNSPECIFIED WITH HYPOXIA J96.92 - RESPIRATORY FAILURE, UNSPECIFIED WITH HYPERCAPNIA Qualifiers: Qualified Code(s): J96.21 - Acute and chronic respiratory failure with hypoxia; J96.22 - Acute and chronic respiratory failure with hypercapnia (15) Shortness of breath Code(s): R06.02 - SHORTNESS OF BREATH (16) Hematoma Code(s): T14.8 - OTHER INJURY OF UNSPECIFIED BODY REGION Visit type - Emergency Visit Emergency Visit: Yes ED Registration Date: 02/18/16 Care time: The patient presented to the Emergency Department on the above date and was hospitalized for further evaluation of their emergent condition. - New Patient This patient is new to me today: No - Critical Care Critical Care patient: No
--- NOTE | 2016-03-13 14:56 | PATH ---
Cytology Non-Gynecological Report Patient Name: NETTE SIMMONS Med. Rec. #: [id number] /Age/Gender: 1940 (Age: 75) / M Account: [id number] Location: [facility] MED/SURG Taken: 03/07/2016 Received: 03/08/2016 Reported: 03/13/2016 Physicians: Che French M.D. Specimen(s) Received A: PLEURAL FLUID IN 50% ALCOHOL B: PLEURAL FLUID FRESH Clinical History Pleural effusion Final Diagnosis A,B. PLEURAL FLUID, THORACENTESIS: SATISFACTORY FOR EVALUATION. NO MALIGNANT CELLS IDENTIFIED. MESOTHELIAL CELLS, HISTOCYTES AND LYMPHOCYTES. Comment: Immunohistochemical stains performed at [place], [place] ([id number]) on cell block B and interpreted [facility] show the following: the cells in the effusion are negative for BerEP4/EMMA and [id number], and are positive for CD68 and calretinin immunostains, supporting the interpretation above. Electronically Signed French Amor M.D. Gross Description A. Received is a 50 cc of yellow fluid in 50% alcohol. One cytofunnel slide and one cell block are made. B. Received is 500 cc of yellow fluid fresh. One cytofunnel slide and one cell block are made.
--- NOTE | 2016-03-13 16:17 | PN ---
Progress Note (short form) - Note Progress Note: Renal Follow up for KARLOS Pt seen and examined at the bedside layed in the bed last night and had difficultly breathing. Denies any chest pain, still feels sob when in chair off bipap No N/V/D Vital Signs Temperature 101.1 F H 03/13/16 14:46 Pulse Rate 110 H 03/13/16 14:46 Respiratory Rate 22 03/13/16 14:46 Blood Pressure 105/55 03/13/16 14:46 O2 Sat by Pulse Oximetry (%) 96 03/13/16 10:13 Intake & Output 03/10/16 03/11/16 03/12/16 03/13/16 23:59 23:59 23:59 23:59 Intake Total 1850 600 200 600 Output Total 3550 1800 2250 600 Balance -1700 -1200 -2050 0 Weight 316 lb 3.2 oz 317 lb 3.2 oz 317 lb 1.6 oz Gen: NAD CVS: RRR No M/R Lungs: dec BS throughout the lung rey Abd: Soft NT + Mild distension Ext: > 3+ LE Lymph edema, no cyanosis or clubbing CBC, BMP 03/13/16 06:00 03/13/16 06:00 Laboratory Tests 03/13/16 06:00 Calcium 8.1 L Current Medications Acetaminophen (Tylenol -) 650 mg PO Q6H PRN PRN Reason: FEVER OR PAIN Last Admin: 03/13/16 05:53 Dose: 650 mg Acetylcysteine (Mucomyst 20 Oral / Inh Use Only*) 200 mg NEB BID [facility] Last Admin: 03/13/16 10:15 Dose: 200 mg Albuterol Sulfate (Ventolin 0.083% Nebulizer Soln -) 1 amp NEB Q4H PRN PRN Reason: SHORT OF BREATH/WHEEZING Last Admin: 03/12/16 07:18 Dose: 1 amp Albuterol Sulfate (Ventolin 0.083% Nebulizer Soln -) 1 amp NEB QIDR [facility] Last Admin: 03/13/16 11:11 Dose: Not Given Amlodipine Besylate (Norvasc -) 10 mg PO DAILY [facility] Last Admin: 03/13/16 10:53 Dose: 10 mg Arformoterol Tartrate (Brovana (Restricted To Pulmonology/Resp) -) 1 amp NEB BID [facility] Last Admin: 03/13/16 10:14 Dose: 1 amp Calcitriol (Rocaltrol -) 0.25 mcg PO DAILY [facility] Last Admin: 03/13/16 10:53 Dose: 0.25 mcg Calcium Acetate (Phoslo -) 1,334 mg PO TIDCM [facility] Last Admin: 03/13/16 12:55 Dose: 1,334 mg Docusate Sodium (Colace -) 100 mg PO BID PRN PRN Reason: CONSTIPATION Last Admin: 03/11/16 09:21 Dose: 100 mg Duloxetine HCl (Cymbalta -) 20 mg PO DAILY [facility] Last Admin: 03/13/16 10:55 Dose: 20 mg Hydralazine HCl (Apresoline -) 50 mg PO TID [facility] Last Admin: 03/13/16 12:59 Dose: Not Given Prednisone (Deltasone -) 20 mg PO DAILY [facility] Last Admin: 03/13/16 10:53 Dose: 20 mg Pregabalin (Lyrica -) 50 mg PO DAILY [facility] Tiotropium [place] (Spiriva -) 1 puff IH DAILY [facility] Last Admin: 03/13/16 10:55 Dose: 1 inh Torsemide (Demadex -) 40 mg PO DAILY [facility] Last Admin: 03/13/16 10:53 Dose: 40 mg A/P 75 year old Gentleman with PMhx of CKD Stage 3 (baseline Cr 1.9), Hx of Nephrolithiasis, Hypertension, COPD, CHF, PVD, Chronic LE lymph edema who was sent into the ED from wound care for increased lethargy and decreased urination for several days with KARLOS with BUN/Cr of 115/7.2 and K of 6.5 #Acute Renal Failure on CKD stage 3 Renal function stable continue to trend continue torsemide #Fluid overload/LE edema/Pleural effusions/COPD/RSV acute sob today BIPAP as needed continue diuretics #Hypocalcemia/Hyperphosphatemia/Secondary Hyperparatyrodism Phoslo to 1334 TID with meals with goal phos < 5.5 continue Calcitriol #Microcytic Anemia [place] [address] units TIW for now with goal Hgb > 10 Melvin Johnson DO
--- NOTE | 2016-03-13 16:52 | PN ---
Teaching Attending Note Name of Resident: Freddie Strickland ATTENDING PHYSICIAN STATEMENT I saw and evaluated the patient. I reviewed the resident's note and discussed the case with the resident. I agree with the resident's findings and plan as documented. SUBJECTIVE: SOB this am , as he slept flat all night . had fever this afternoon. worsening L siatica OBJECTIVE: NAD , looks uncomfortable Cv : RRR Lungs : decreased breath sounds at bases , no wheezes today ext : 3 + pitting edema , and thick skin with no discharge ASSESSMENT AND PLAN: 75 year-old man with a PMHx of HTN, PVD, COPD, CKD (baseline Cr 1.8), nephrolithiasis, D CHF , CAD s/p stenting in 03/23 and chronic LE lymphedema. presented with SOB and was found to have acute hypercapnic resp failure with acute renal failure . 1- Acute hypercapnic resp failure due to COPD exa and diastolic heart failure and pleural effusions pt was doing better until today as he was flat all night . now he has fever , not sure of source - repeat cxray. - repeat blood cx - will plan for L sided thoracocentesis , as pt still can't tolerate supine position , and any activity - cont prednisone taper day 2 /3 of 20 mg 2- cellultis of LE :resolved . cont to hold abx and investigate the source of fever this afternoon 3- KARLOS on CKD: off HD .stable Cr on cacitriol and phosl 4- microcytic anemia. - no evidence of iron def - transfuse as needed . -epogen 3xweek 5- HTN: better . cont HZN and norvasc 6- CAD : stenting 03/23 . hold asa and effient as above DVT px d/w Dr. Johnson
--- NOTE | 2016-03-13 18:33 | PN ---
Progress Note, Physician History of Present Illness: Pt developed dyspnea last night. Currently he is not short of breath and is sitting in a chair. No sputum. He had a fever this afternoon. - Current Medication List Current Medications: Active Medications Acetaminophen (Tylenol -) 650 mg PO Q6H PRN PRN Reason: FEVER OR PAIN Last Admin: 03/13/16 05:53 Dose: 650 mg Acetylcysteine (Mucomyst 20 Oral / Inh Use Only*) 200 mg NEB BID [facility] Last Admin: 03/13/16 10:15 Dose: 200 mg Albuterol Sulfate (Ventolin 0.083% Nebulizer Soln -) 1 amp NEB Q4H PRN PRN Reason: SHORT OF BREATH/WHEEZING Last Admin: 03/12/16 07:18 Dose: 1 amp Albuterol Sulfate (Ventolin 0.083% Nebulizer Soln -) 1 amp NEB QIDR [facility] Last Admin: 03/13/16 18:06 Dose: 1 amp Amlodipine Besylate (Norvasc -) 10 mg PO DAILY [facility] Last Admin: 03/13/16 10:53 Dose: 10 mg Arformoterol Tartrate (Brovana (Restricted To Pulmonology/Resp) -) 1 amp NEB BID [facility] Last Admin: 03/13/16 10:14 Dose: 1 amp Calcitriol (Rocaltrol -) 0.25 mcg PO DAILY [facility] Last Admin: 03/13/16 10:53 Dose: 0.25 mcg Calcium Acetate (Phoslo -) 1,334 mg PO TIDCM [facility] Last Admin: 03/13/16 16:49 Dose: 1,334 mg Docusate Sodium (Colace -) 100 mg PO BID PRN PRN Reason: CONSTIPATION Last Admin: 03/11/16 09:21 Dose: 100 mg Duloxetine HCl (Cymbalta -) 20 mg PO DAILY [facility] Last Admin: 03/13/16 10:55 Dose: 20 mg Hydralazine HCl (Apresoline -) 50 mg PO TID [facility] Last Admin: 03/13/16 12:59 Dose: Not Given Prednisone (Deltasone -) 20 mg PO DAILY [facility] Last Admin: 03/13/16 10:53 Dose: 20 mg Pregabalin (Lyrica -) 50 mg PO DAILY [facility] Tiotropium [place] (Spiriva -) 1 puff IH DAILY [facility] Last Admin: 03/13/16 10:55 Dose: 1 inh Torsemide (Demadex -) 40 mg PO DAILY [facility] Last Admin: 03/13/16 10:53 Dose: 40 mg - Objective Vital Signs: Vital Signs Temperature 98.9 F 03/13/16 17:08 Pulse Rate 90 03/13/16 17:08 Respiratory Rate 20 03/13/16 17:08 Blood Pressure 126/50 03/13/16 17:08 O2 Sat by Pulse Oximetry (%) 96 03/13/16 10:13 Constitutional: Yes: No Distress Eyes: No: Sclera Icterus HENT: Yes: Atraumatic, Normocephalic Neck: Yes: Supple, Trachea Midline Cardiovascular: Yes: Regular Rate and Rhythm. No: JVD Respiratory: Yes: Diminished (decreased breath sounds at bases) Gastrointestinal: Yes: Soft Edema: Yes Edema: LLE: 4+, RLE: 4+ Neurological: Yes: Alert, Oriented Labs: CBC, BMP 03/13/16 06:00 03/13/16 06:00 INR, PTT INR 1.12 (0.82-1.09) 02/18/16 13:00 - ....Imaging Chest X-ray: Image Reviewed (bilat effusions-left greater than right; no sig. change from previous cxr) Problem List - Problems (1) COPD exacerbation Code(s): J44.1 - CHRONIC OBSTRUCTIVE PULMONARY DISEASE W (ACUTE) EXACERBATION (2) Acute and chronic respiratory failure ([id number]) Code(s): J96.20 - ACUTE AND CHR RESP FAILURE, UNSP W HYPOXIA OR HYPERCAPNIA Qualifiers: Qualified Code(s): J96.21 - Acute and chronic respiratory failure with hypoxia (3) Acute kidney failure Code(s): N17.9 - ACUTE KIDNEY FAILURE, UNSPECIFIED Qualifiers: Qualified Code(s): N17.9 - Acute kidney failure, unspecified (4) Chronic kidney disease (CKD) Code(s): N18.9 - CHRONIC KIDNEY DISEASE, UNSPECIFIED Qualifiers: Qualified Code(s): N18.9 - Chronic kidney disease, unspecified (5) Cellulitis Code(s): L03.90 - CELLULITIS, UNSPECIFIED (6) Hyperkalemia Code(s): E87.5 - HYPERKALEMIA (7) Arteriosclerotic heart disease (ASHD) Code(s): I25.10 - ATHSCL HEART DISEASE OF [place] CORONARY ARTERY W/O ANG PCTRS (8) Obesities, morbid Code(s): E66.01 - MORBID (SEVERE) OBESITY DUE TO EXCESS CALORIES Qualifiers: Qualified Code(s): E66.2 - Morbid (severe) obesity with alveolar hypoventilation Assessment/Plan New fever today-source? COPD Acute on chronic hypercapneic respiratory failure CAD; S/P stents; no chest pain or palpitations. CHF/fluid overload . Pt is s/p right thoracentesis (600 cc) Fluid is transudative. Cytology and cultures pending. Acute Renal Failure Chronic Renal Insufficiency Anemia Plan: Torsemide fluid restriction Steroid taper in progress inhaled bronchodilator NIPPV nightly Monitor blood counts; transfuse PRN Correct potassium Cultures
[2016-03-13] MEDS: ALBUTEROL SO4 0.083% IH SOL 2.5 MG/3 ML VIAL.NEB. NEB PRN (23:33)
[2016-03-14] MEDS: hydrALAZINE HCL 50 MG TABLET (FP) PO SCH ×3 (05:49→21:30)
[2016-03-14] MEDS: ALBUTEROL SO4 0.083% IH SOL 2.5 MG/3 ML VIAL.NEB. NEB SCH ×4 (06:42→18:38)
--- NOTE | 2016-03-14 09:29 | PN ---
Progress Note, Physician Chief Complaint: sitting in chair no distress Repeat CXR yesterday showed improvement in effusions. Chest CT done this admission- no sig aortic aneursysm, mild ectasia (CXR comments on widened mediastinum) - Current Medication List Current Medications: Active Medications Acetaminophen (Tylenol -) 650 mg PO Q6H PRN PRN Reason: FEVER OR PAIN Last Admin: 03/13/16 05:53 Dose: 650 mg Acetylcysteine (Mucomyst 20 Oral / Inh Use Only*) 200 mg NEB BID [facility] Last Admin: 03/13/16 21:56 Dose: 200 mg Albuterol Sulfate (Ventolin 0.083% Nebulizer Soln -) 1 amp NEB Q4H PRN PRN Reason: SHORT OF BREATH/WHEEZING Last Admin: 03/12/16 07:18 Dose: 1 amp Albuterol Sulfate (Ventolin 0.083% Nebulizer Soln -) 1 amp NEB QIDR [facility] Last Admin: 03/14/16 06:42 Dose: 1 amp Amlodipine Besylate (Norvasc -) 10 mg PO DAILY [facility] Last Admin: 03/13/16 10:53 Dose: 10 mg Arformoterol Tartrate (Brovana (Restricted To Pulmonology/Resp) -) 1 amp NEB BID [facility] Last Admin: 03/13/16 21:56 Dose: 1 amp Calcitriol (Rocaltrol -) 0.25 mcg PO DAILY [facility] Last Admin: 03/13/16 10:53 Dose: 0.25 mcg Calcium Acetate (Phoslo -) 1,334 mg PO TIDCM [facility] Last Admin: 03/13/16 16:49 Dose: 1,334 mg Docusate Sodium (Colace -) 100 mg PO BID PRN PRN Reason: CONSTIPATION Last Admin: 03/11/16 09:21 Dose: 100 mg Duloxetine HCl (Cymbalta -) 20 mg PO DAILY [facility] Last Admin: 03/13/16 10:55 Dose: 20 mg Hydralazine HCl (Apresoline -) 50 mg PO TID [facility] Last Admin: 03/14/16 05:49 Dose: 50 mg Prednisone (Deltasone -) 20 mg PO DAILY [facility] Last Admin: 03/13/16 10:53 Dose: 20 mg Pregabalin (Lyrica -) 50 mg PO DAILY [facility] Tiotropium [place] (Spiriva -) 1 puff IH DAILY [facility] Last Admin: 03/13/16 10:55 Dose: 1 inh Torsemide (Demadex -) 40 mg PO DAILY [facility] Last Admin: 03/13/16 10:53 Dose: 40 mg - Objective Vital Signs: Vital Signs Temperature 99.4 F 03/14/16 07:54 Pulse Rate 104 H 03/14/16 07:54 Respiratory Rate 20 03/14/16 07:54 Blood Pressure 139/68 03/14/16 07:54 O2 Sat by Pulse Oximetry (%) 98 03/13/16 21:57 Constitutional: Yes: No Distress Cardiovascular: Yes: Regular Rate and Rhythm Respiratory: Yes: CTA Bilaterally, Other (diminished breath sounds b/l) Gastrointestinal: Yes: Soft, Abdomen, Obese Edema: Yes Edema: LLE: 2+, RLE: 2+ Neurological: Yes: Alert, Oriented ...Motor Strength: WNL Labs: CBC, BMP 03/13/16 06:00 03/13/16 06:00 INR, PTT INR 1.12 (0.82-1.09) 02/18/16 13:00 Assessment/Plan Assessment/Plan 75 year old man with a history of HTN, COPD on home O2, Chronic combined systolic/diastolic CHF, CKD, JOY, CAD moderate LV systolic dysfunction, cardiac cath 03/2015 showed 2VD with RCA and LAD disease. He underwent PCI with ABDON of RCA 03/2015 and staged PCI of LAD in 04/2015 with significant improvement in symptoms. He has been feeling well since then, now admitted with cellulitis, sepsis, TARYN on CKD and sob SOB-multifactorial, AE COPD, RSV, pleural effusions, acute on chronic diastolic CHF, sepsis -s/p thoracentesis -cont bipap as needed -cont torsemide and monitor I/Os, bun/creat Acute on Chronic diastolic CHF NYHA class IV, LV systolic function normalized post PCI: -cont diuresis -monitor I/Os -monitor BUN/Creat, electrolytes, keep k=4, Mg=2 -not on bblocker due to severe COPD -not on PIPRE-I currently due to fluctuating renal function -echo showed normal LV systolic function, no sig valvular abnl CAD-PCI with ABDON of RCA 03/2015 and staged PCI of LAD in 04/2015 -ASA and Effient were held for thoracentesis. -Would resume ASA 81mg daily when feasible. -monitor H/H -cont lipitor Anemia-guaiac negative. -Monitor H/H -transfuse prn
[2016-03-14] MEDS: ARFORMOTEROL TARTRATE 15 MCG/2 ML VIAL NEB SCH ×2 (10:38→22:45)
[2016-03-14] MEDS: ACETYLCYSTEINE 20% 200MG/ML 4 ML VIAL *FOR ORAL / INH USE ONLY NEB SCH ×2 (10:38→22:45)
[2016-03-14] MEDS: CALCIUM ACETATE 667 MG CAPSULE (FP) PO SCH ×3 (11:01→18:27)
[2016-03-14] MEDS: DULoxetine HCL 20 MG CAPSULE.DR (FP) PO SCH (11:01)
[2016-03-14] MEDS: predniSONE 20 MG TABLET (UD) PO SCH (11:01)
[2016-03-14] MEDS: TORSEMIDE 20 MG TABLET (FP) PO SCH (11:01)
[2016-03-14] MEDS: PREGABALIN 50 MG CAPSULE PO SCH (11:02)
[2016-03-14] MEDS: amLODIPine BESYLATE 10 MG TABLET (FP) PO SCH (11:02)
[2016-03-14] MEDS: CALCITRIOL 0.25 MCG CAPSULE (FP) PO SCH (11:02)
[2016-03-14] MEDS: TIOTROPIUM BROMIDE 18 MCG/INH (DEVICE W/ 5 CAPSULES) IH SCH (11:02)
--- NOTE | 2016-03-14 12:16 | PN ---
Physical Exam: SUBJECTIVE: Patient seen and examined on chair next to bedside. Feels uncomfortable in chair but otherwise has no other complaints. Breathing is improving. Denies CP, SOB at rest, diarrhea, dysuria, N/V/F. Refused labs this AM. OBJECTIVE: Vital Signs Temperature 99.4 F 03/14/16 07:54 Pulse Rate 104 H 03/14/16 07:54 Respiratory Rate 20 03/14/16 07:54 Blood Pressure 139/68 03/14/16 07:54 O2 Sat by Pulse Oximetry (%) 98 03/13/16 21:57 GENERAL: The patient is awake, alert, and fully oriented, in no acute distress. HEAD: Normal with no signs of trauma. EYES: sclera anicteric, conjunctiva clear. No ptosis. ENT: moist mucous membranes. NECK: Trachea midline, full range of motion LUNGS: Diminished breath sounds, CTA, no wheezing HEART: Regular rate and rhythm, S1, S2 without murmur, rub or gallop. ABDOMEN: Obese, Soft, nontender, nondistended, normoactive bowel sounds, no guarding, no rebound, no hepatosplenomegaly, no masses. EXTREMITIES: warm, well-perfused, B/L cellulitic changes, B/L LE 3+ pitting edema and alvarado crusted lesions. Eryhthema improving. NEUROLOGICAL: Normal speech, gait not observed. PSYCH: Normal mood, normal affect. SKIN: Warm, dry, normal turgor, skin changes as noted above in extremities. Laboratory Results - last 24 hr 03/08/16 10:15 Blood Type A POSITIVE Antibody Screen Negative Crossmatch See Detail Active Medications Generic Name Dose Route Start Last Admin Trade Name Arieq PRN Reason Stop Dose Admin Acetaminophen 650 mg 03/09/16 16:50 03/13/16 05:53 Tylenol - PO 650 mg Q6H PRN Administration FEVER OR PAIN Acetylcysteine 200 mg 02/26/16 10:00 03/14/16 10:38 Mucomyst 20 Oral / Inh Use Only* NEB 200 mg BID [facility] Administration Albuterol Sulfate 1 amp 03/06/16 16:01 03/12/16 07:18 Ventolin 0.083% Nebulizer Soln - NEB 1 amp Q4H PRN Administration SHORT OF BREATH/WHEEZING Albuterol Sulfate 1 amp 03/06/16 18:00 03/14/16 10:59 Ventolin 0.083% Nebulizer Soln - NEB Not Given QIDR [facility] Amlodipine Besylate 10 mg 03/11/16 08:30 03/14/16 11:02 Norvasc - PO 10 mg DAILY [facility] Administration Arformoterol Tartrate 1 amp 02/23/16 22:00 03/14/16 10:38 Brovana (Restricted To Pulmonology/Resp) - NEB 1 amp BID [facility] Administration Calcitriol 0.25 mcg 02/24/16 12:45 03/14/16 11:02 Rocaltrol - PO 0.25 mcg DAILY [facility] Administration Calcium Acetate 1,334 mg 03/12/16 12:00 03/14/16 11:01 Phoslo - PO 1,334 mg TIDCM [facility] Administration Docusate Sodium 100 mg 03/10/16 17:34 03/11/16 09:21 Colace - PO 100 mg BID PRN Administration CONSTIPATION Duloxetine HCl 20 mg 02/24/16 10:00 03/14/16 11:01 Cymbalta - PO 20 mg DAILY [facility] Administration Hydralazine HCl 50 mg 02/28/16 22:00 03/14/16 05:49 Apresoline - PO 50 mg TID [facility] Administration Prednisone 20 mg 03/12/16 10:00 03/14/16 11:01 Deltasone - PO 20 mg DAILY [facility] Administration Pregabalin 50 mg 03/14/16 10:00 03/14/16 11:02 Lyrica - PO 50 mg DAILY [facility] Administration Tiotropium [place] 1 puff 02/22/16 11:15 03/14/16 11:02 Spiriva - IH 1 inh DAILY [facility] Administration Torsemide 40 mg 03/09/16 10:00 03/14/16 11:01 Demadex - PO 40 mg DAILY [facility] Administration ASSESSMENT/PLAN: 75 year-old man with a PMH of HTN, PVD, COPD, CKD (baseline Cr 1.9), nephrolithiasis, and chronic LE lymphedema. Admitted for acute renal failure ( hyperkalemia) and respiratory distress. # Acute on chronic renal failure -limit fluid intake to 1L per day due to SOB. -Last BUN/Cr 136/3.4 (baseline 1.8-1.9), creatinine improving slowly off HD. -torsemide 40 mg po qd -phoslo increased to 1337 mg TID w/meals -goal of phos <5.5 # Acute COPD exacerbation with hypercapnic respiratory failure -Did not use bipap last night -SOB improving -brovana, albuterol neb q4h PRN, albuterol neb standing qid -prednisone 20 mg PO (day 3), will taper to 10 mg PO qd starting tomorrow -bipap use at night instructed #SOB -improving -Resp virus panel - RSV positive -diuresis with torsemide 40 mg po qd -s/p R thoracentesis. 800 cc fluid removed. -fluid analysis: WBC 232, RBC: 1940, total protein: 2.184, LDH: 91.591, glucose: 215.755, amylase 8.508. -BiPap use at night. - thoracentesis now on L side - held ASA and prasugrel (will hold for 5 days for thoracentesis) # Anemia, microcytic -Refused labs this am -Anemia of chronic disease secondary to CKD, TIBC low -Last Hgb 7.1 (s/p 2 unit PRBC this admission); -Transfuse if Hgb <7. -ASA held due to drop in Hgb -resume when Hgb higher & stable -Epoetin 20,000 units sq 3 times a week # Sepsis secondary to B/L lower extremity cellulitis -resolved -off abx # HTN -hydralazine 50 mg PO TID -norvasc 10 mg po qd #. CHF (diastolic) -torsemide 40 mg qd -Causing his LE edema most likely -will get B/L LE duplex to r/o PE # Hx of Depression -c/w cymbalta 20mg #Neuropathy -lyrica 50 mg PO qd # CAD -prasugrel 10 mg PO qd, on hold for now for thoracentesis -until 04/2016 #. FEN -hypocalcemia -c/w calcitriol - f/u BMP # Dispo: monitor on floors. Continue PT Problem List - Problems (1) Acute kidney failure Code(s): N17.9 - ACUTE KIDNEY FAILURE, UNSPECIFIED Qualifiers: Qualified Code(s): N17.9 - Acute kidney failure, unspecified (2) COPD exacerbation Code(s): J44.1 - CHRONIC OBSTRUCTIVE PULMONARY DISEASE W (ACUTE) EXACERBATION (3) Hyperkalemia Code(s): E87.5 - HYPERKALEMIA (4) Acute and chronic respiratory failure (soczi-hr-jsgcewz) Code(s): J96.20 - ACUTE AND CHR RESP FAILURE, UNSP W HYPOXIA OR HYPERCAPNIA Qualifiers: Qualified Code(s): J96.21 - Acute and chronic respiratory failure with hypoxia (5) Acute exacerbation of chronic obstructive pulmonary disease (COPD) Code(s): J44.1 - CHRONIC OBSTRUCTIVE PULMONARY DISEASE W (ACUTE) EXACERBATION (6) Acute on chronic diastolic (congestive) heart failure Code(s): I50.33 - ACUTE ON CHRONIC DIASTOLIC (CONGESTIVE) HEART FAILURE (7) Anxiety and depression Code(s): F41.9 - ANXIETY DISORDER, UNSPECIFIED F32.9 - MAJOR DEPRESSIVE DISORDER, SINGLE EPISODE, UNSPECIFIED (8) Cellulitis Code(s): L03.90 - CELLULITIS, UNSPECIFIED (9) Chronic kidney disease (CKD) Code(s): N18.9 - CHRONIC KIDNEY DISEASE, UNSPECIFIED Qualifiers: Qualified Code(s): N18.9 - Chronic kidney disease, unspecified (10) Diastolic CHF Code(s): I50.30 - UNSPECIFIED DIASTOLIC (CONGESTIVE) HEART FAILURE (11) Hyperlipidemia Code(s): E78.5 - HYPERLIPIDEMIA, UNSPECIFIED (12) Hypertension Code(s): I10 - ESSENTIAL (PRIMARY) HYPERTENSION (13) Obesities, morbid Code(s): E66.01 - MORBID (SEVERE) OBESITY DUE TO EXCESS CALORIES Qualifiers: Qualified Code(s): E66.2 - Morbid (severe) obesity with alveolar hypoventilation (14) Respiratory failure with hypoxia and hypercapnia Code(s): J96.91 - RESPIRATORY FAILURE, UNSPECIFIED WITH HYPOXIA J96.92 - RESPIRATORY FAILURE, UNSPECIFIED WITH HYPERCAPNIA Qualifiers: Qualified Code(s): J96.21 - Acute and chronic respiratory failure with hypoxia; J96.22 - Acute and chronic respiratory failure with hypercapnia (15) Shortness of breath Code(s): R06.02 - SHORTNESS OF BREATH (16) Hematoma Code(s): T14.8 - OTHER INJURY OF UNSPECIFIED BODY REGION Visit type - Emergency Visit Emergency Visit: Yes ED Registration Date: 02/18/16 Care time: The patient presented to the Emergency Department on the above date and was hospitalized for further evaluation of their emergent condition. - New Patient This patient is new to me today: No - Critical Care Critical Care patient: No
--- NOTE | 2016-03-14 12:16 | PN ---
Progress Note, Physician History of Present Illness: Pt's dyspnea decreased. OOB in chair nad. - Current Medication List Current Medications: Active Medications Acetaminophen (Tylenol -) 650 mg PO Q6H PRN PRN Reason: FEVER OR PAIN Last Admin: 03/13/16 05:53 Dose: 650 mg Acetylcysteine (Mucomyst 20 Oral / Inh Use Only*) 200 mg NEB BID [facility] Last Admin: 03/14/16 10:38 Dose: 200 mg Albuterol Sulfate (Ventolin 0.083% Nebulizer Soln -) 1 amp NEB Q4H PRN PRN Reason: SHORT OF BREATH/WHEEZING Last Admin: 03/12/16 07:18 Dose: 1 amp Albuterol Sulfate (Ventolin 0.083% Nebulizer Soln -) 1 amp NEB QIDR [facility] Last Admin: 03/14/16 10:59 Dose: Not Given Amlodipine Besylate (Norvasc -) 10 mg PO DAILY [facility] Last Admin: 03/14/16 11:02 Dose: 10 mg Arformoterol Tartrate (Brovana (Restricted To Pulmonology/Resp) -) 1 amp NEB BID [facility] Last Admin: 03/14/16 10:38 Dose: 1 amp Calcitriol (Rocaltrol -) 0.25 mcg PO DAILY [facility] Last Admin: 03/14/16 11:02 Dose: 0.25 mcg Calcium Acetate (Phoslo -) 1,334 mg PO TIDCM [facility] Last Admin: 03/14/16 11:01 Dose: 1,334 mg Docusate Sodium (Colace -) 100 mg PO BID PRN PRN Reason: CONSTIPATION Last Admin: 03/11/16 09:21 Dose: 100 mg Duloxetine HCl (Cymbalta -) 20 mg PO DAILY [facility] Last Admin: 03/14/16 11:01 Dose: 20 mg Hydralazine HCl (Apresoline -) 50 mg PO TID [facility] Last Admin: 03/14/16 05:49 Dose: 50 mg Prednisone (Deltasone -) 10 mg PO DAILY [facility] Pregabalin (Lyrica -) 50 mg PO DAILY [facility] Last Admin: 03/14/16 11:02 Dose: 50 mg Tiotropium [place] (Spiriva -) 1 puff IH DAILY [facility] Last Admin: 03/14/16 11:02 Dose: 1 inh Torsemide (Demadex -) 40 mg PO DAILY [facility] Last Admin: 03/14/16 11:01 Dose: 40 mg - Objective Vital Signs: Vital Signs Temperature 99.4 F 03/14/16 07:54 Pulse Rate 104 H 03/14/16 07:54 Respiratory Rate 20 03/14/16 07:54 Blood Pressure 139/68 03/14/16 07:54 O2 Sat by Pulse Oximetry (%) 98 03/13/16 21:57 Constitutional: Yes: No Distress Eyes: No: Sclera Icterus HENT: Yes: Atraumatic, Normocephalic Neck: Yes: Supple, Trachea Midline Cardiovascular: Yes: Regular Rate and Rhythm. No: JVD Respiratory: Yes: CTA Bilaterally Gastrointestinal: Yes: Soft. No: Tenderness Extremities: Yes: Erythema Edema: LLE: 4+, RLE: 4+ Neurological: Yes: Alert, Oriented Labs: CBC, BMP 03/13/16 06:00 03/13/16 06:00 INR, PTT INR 1.12 (0.82-1.09) 02/18/16 13:00 Problem List - Problems (1) COPD exacerbation Code(s): J44.1 - CHRONIC OBSTRUCTIVE PULMONARY DISEASE W (ACUTE) EXACERBATION (2) Acute and chronic respiratory failure ([id number]) Code(s): J96.20 - ACUTE AND CHR RESP FAILURE, UNSP W HYPOXIA OR HYPERCAPNIA Qualifiers: Qualified Code(s): J96.21 - Acute and chronic respiratory failure with hypoxia (3) Acute kidney failure Code(s): N17.9 - ACUTE KIDNEY FAILURE, UNSPECIFIED Qualifiers: Qualified Code(s): N17.9 - Acute kidney failure, unspecified (4) Chronic kidney disease (CKD) Code(s): N18.9 - CHRONIC KIDNEY DISEASE, UNSPECIFIED Qualifiers: Qualified Code(s): N18.9 - Chronic kidney disease, unspecified (5) Cellulitis Code(s): L03.90 - CELLULITIS, UNSPECIFIED (6) Hyperkalemia Code(s): E87.5 - HYPERKALEMIA (7) Arteriosclerotic heart disease (ASHD) Code(s): I25.10 - ATHSCL HEART DISEASE OF [place] CORONARY ARTERY W/O ANG PCTRS (8) Obesities, morbid Code(s): E66.01 - MORBID (SEVERE) OBESITY DUE TO EXCESS CALORIES Qualifiers: Qualified Code(s): E66.2 - Morbid (severe) obesity with alveolar hypoventilation Assessment/Plan T max 99.4 so far today. Culture results pending. COPD Acute on chronic hypercapneic respiratory failure-respiratory status stable at present CAD; S/P stents; no chest pain or palpitations. CHF/fluid overload . Pt is s/p right thoracentesis (600 cc) Fluid is transudative. Cytology and cultures pending. Acute Renal Failure Chronic Renal Insufficiency Anemia Plan: Torsemide fluid restriction Steroid taper in progress inhaled bronchodilator NIPPV nightly Monitor blood counts; transfuse PRN Correct potassium
--- NOTE | 2016-03-14 13:09 | PN ---
Teaching Attending Note Name of Resident: Freddie Strickland ATTENDING PHYSICIAN STATEMENT I saw and evaluated the patient. I reviewed the resident's note and discussed the case with the resident. I agree with the resident's findings and plan as documented. SUBJECTIVE: Patient reports feeling less short of breath. His only complaint is that the chair is uncomfortable. OBJECTIVE: Vital Signs Period Temp Pulse Resp BP Sys/[place] Pulse Ox Last 24 Hr 98.5 F-101.1 F 84-110 20-22 105-139/50-68 98-98 HEART: S1 S2, RRR LUNGS: Clear with decreased BS at left base ABDOMEN: Soft, non-tender, non-distended, normal BS EXTREMITIES: 3+ edema ASSESSMENT AND PLAN: 75 year-old man with a PMHx of HTN, PVD, COPD, CKD (baseline Cr 1.8), nephrolithiasis, D CHF , CAD s/p stenting in 03/23 and chronic LE lymphedema. presented with SOB and was found to have acute hypercapnic resp failure with acute renal failure . 1. Acute hypercapnic respiratory failure secondary to acute exacerbation of COPD , acute on chronic diastolic heart failure with bilateral pleural effusions - Continue oxygen, Prednisone taper, Spiriva, BiPAP, Brovana, Acetylcysteine nebulizers, Albuterol nebulizers, Torsemide - s/p right htoracentesis - Plan for left thoracentesis 2. Fever - Resolved - Blood cultures (03/13) pending 3. Sepsis secondary to cellulitis of legs - Resolved 4. KARLOS on stage 3 CKD - Off HD - Creatinine stable - Continue Calcitriol and PhosLo 5. Microcytic anemia secondary to CKD - Continue Epogen 6. HTN - Continue Norvasc, Hydralazine, Torsemide 7. CAD, history of stent - Aspirin, Effient on hold for thoracentesis - Not on beta-regine secondary to COPD - Not on ACEI secondary to KARLOS 8. Peripheral neuropathy - Continue Lyrica 9. Depression - Continue Cymbalta
[2016-03-14 13:22] LABS: MCH 26.2 pg (25.7-33.7); MCHC 31.3 g/dl (32.0-35.9); MEAN CELL VOLUME 83.5 fl (80-96); MEAN PLT VOLUME 8.3 fl (7.5-11.1); PLATELET COUNT 82 K/MM3 (134-434); RDW 22.5 % (11.9-15.9); WHITE BLOOD COUNT 5.8 K/mm3 (4.0-10.0)
[2016-03-14 13:51] LABS: CALCIUM 8.1 mg/dL (8.5-10.1); CREATININE 3.4 mg/dL (0.7-1.3)
--- NOTE | 2016-03-14 15:10 | PN ---
Progress Note, Physician History of Present Illness: stable dyspnea has decreased does not feel too well though - Current Medication List Current Medications: Active Medications Acetaminophen (Tylenol -) 650 mg PO Q6H PRN PRN Reason: FEVER OR PAIN Last Admin: 03/13/16 05:53 Dose: 650 mg Acetylcysteine (Mucomyst 20 Oral / Inh Use Only*) 200 mg NEB BID [facility] Last Admin: 03/14/16 10:38 Dose: 200 mg Albuterol Sulfate (Ventolin 0.083% Nebulizer Soln -) 1 amp NEB Q4H PRN PRN Reason: SHORT OF BREATH/WHEEZING Last Admin: 03/12/16 07:18 Dose: 1 amp Albuterol Sulfate (Ventolin 0.083% Nebulizer Soln -) 1 amp NEB QIDR [facility] Last Admin: 03/14/16 12:20 Dose: 1 amp Amlodipine Besylate (Norvasc -) 10 mg PO DAILY [facility] Last Admin: 03/14/16 11:02 Dose: 10 mg Arformoterol Tartrate (Brovana (Restricted To Pulmonology/Resp) -) 1 amp NEB BID [facility] Last Admin: 03/14/16 10:38 Dose: 1 amp Calcitriol (Rocaltrol -) 0.25 mcg PO DAILY [facility] Last Admin: 03/14/16 11:02 Dose: 0.25 mcg Calcium Acetate (Phoslo -) 1,334 mg PO TIDCM [facility] Last Admin: 03/14/16 13:12 Dose: 1,334 mg Docusate Sodium (Colace -) 100 mg PO BID PRN PRN Reason: CONSTIPATION Last Admin: 03/11/16 09:21 Dose: 100 mg Duloxetine HCl (Cymbalta -) 20 mg PO DAILY [facility] Last Admin: 03/14/16 11:01 Dose: 20 mg Hydralazine HCl (Apresoline -) 50 mg PO TID [facility] Last Admin: 03/14/16 13:12 Dose: 50 mg Prednisone (Deltasone -) 10 mg PO DAILY [facility] Pregabalin (Lyrica -) 50 mg PO DAILY [facility] Last Admin: 03/14/16 11:02 Dose: 50 mg Tiotropium [place] (Spiriva -) 1 puff IH DAILY [facility] Last Admin: 03/14/16 11:02 Dose: 1 inh Torsemide (Demadex -) 40 mg PO DAILY [facility] Last Admin: 12/06/16 11:01 Dose: 40 mg - Objective Vital Signs: Vital Signs Temperature 98.5 F 03/14/16 14:00 Pulse Rate 92 H 03/14/16 14:00 Respiratory Rate 22 03/14/16 14:00 Blood Pressure 149/69 03/14/16 14:00 O2 Sat by Pulse Oximetry (%) 98 03/14/16 12:46 Constitutional: Yes: Calm, Mild Distress Cardiovascular: Yes: Regular Rate and Rhythm Respiratory: Yes: Regular, Poor Air Entry Gastrointestinal: Yes: Normal Bowel Sounds, Soft Musculoskeletal: Yes: Other Extremities: Yes: Other Edema: LLE: 2+, RLE: 2+ Neurological: Yes: Alert, Oriented Psychiatric: Yes: Alert Labs: CBC, BMP 03/14/16 13:00 03/14/16 13:00 INR, PTT INR 1.12 (0.82-1.09) 02/18/16 13:00 Assessment/Plan 75 year-old man with a PMH of HTN, PVD, COPD, CKD (baseline Cr 1.9), nephrolithiasis, and chronic LE lymphedema. Admitted in acute renal failure. Acute on chronic renal failure Hyperkalemia Sepsis s Hypertension Peripheral vascular disease Hypercarbic respiratory failure COPD bilateral cellulitis of the legs rsv lung infection pleural effusion plan continue resp physio continue monitoring physiotherapy stable awaiting for pleural tap on the other side
[2016-03-14] MEDS ORDERED: POTASSIUM CHLORIDE TABS 20 MEQ TABLET.ER (FP) PO ONE ×2 (15:56→18:15)
--- NOTE | 2016-03-14 15:59 | PN ---
Progress Note (short form) - Note Progress Note: Renal Follow up for KARLOS Pt seen and examined at the bedside feels better today does not sleep at night but denies any sob no fever or chills Vital Signs Temperature 98.5 F 03/14/16 14:00 Pulse Rate 92 H 03/14/16 14:00 Respiratory Rate 22 03/14/16 14:00 Blood Pressure 149/69 03/14/16 14:00 O2 Sat by Pulse Oximetry (%) 98 03/14/16 12:46 Intake & Output 03/11/16 03/12/16 03/13/16 03/14/16 23:59 23:59 23:59 23:59 Intake Total 600 200 750 300 Output Total 1800 2250 1650 700 Balance -1200 -2050 -900 -400 Weight 317 lb 3.2 oz 317 lb 1.6 oz Gen: NAD CVS: RRR No M/R Lungs: dec BS throughout the lung rey Abd: Soft NT + Mild distension Ext: > 3+ LE Lymph edema, no cyanosis or clubbing CBC, BMP 03/14/16 13:00 03/14/16 13:00 Current Medications Acetaminophen (Tylenol -) 650 mg PO Q6H PRN PRN Reason: FEVER OR PAIN Last Admin: 03/13/16 05:53 Dose: 650 mg Acetylcysteine (Mucomyst 20 Oral / Inh Use Only*) 200 mg NEB BID [facility] Last Admin: 03/14/16 10:38 Dose: 200 mg Albuterol Sulfate (Ventolin 0.083% Nebulizer Soln -) 1 amp NEB Q4H PRN PRN Reason: SHORT OF BREATH/WHEEZING Last Admin: 03/12/16 07:18 Dose: 1 amp Albuterol Sulfate (Ventolin 0.083% Nebulizer Soln -) 1 amp NEB QIDR [facility] Last Admin: 03/14/16 12:20 Dose: 1 amp Amlodipine Besylate (Norvasc -) 10 mg PO DAILY [facility] Last Admin: 03/14/16 11:02 Dose: 10 mg Arformoterol Tartrate (Brovana (Restricted To Pulmonology/Resp) -) 1 amp NEB BID [facility] Last Admin: 03/14/16 10:38 Dose: 1 amp Calcitriol (Rocaltrol -) 0.25 mcg PO DAILY [facility] Last Admin: 12/06/16 11:02 Dose: 0.25 mcg Calcium Acetate (Phoslo -) 1,334 mg PO TIDCM [facility] Last Admin: 03/14/16 13:12 Dose: 1,334 mg Docusate Sodium (Colace -) 100 mg PO BID PRN PRN Reason: CONSTIPATION Last Admin: 03/11/16 09:21 Dose: 100 mg Duloxetine HCl (Cymbalta -) 20 mg PO DAILY [facility] Last Admin: 03/14/16 11:01 Dose: 20 mg Hydralazine HCl (Apresoline -) 50 mg PO TID [facility] Last Admin: 03/14/16 13:12 Dose: 50 mg Potassium Chloride (K-Dur -) 40 meq PO ONCE ONE Stop: 03/14/16 15:57 Prednisone (Deltasone -) 10 mg PO DAILY [facility] Pregabalin (Lyrica -) 50 mg PO DAILY [facility] Last Admin: 03/14/16 11:02 Dose: 50 mg Tiotropium [place] (Spiriva -) 1 puff IH DAILY [facility] Last Admin: 03/14/16 11:02 Dose: 1 inh Torsemide (Demadex -) 40 mg PO DAILY [facility] Last Admin: 03/14/16 11:01 Dose: 40 mg A/P 75 year old Gentleman with PMhx of CKD Stage 3 (baseline Cr 1.9), Hx of Nephrolithiasis, Hypertension, COPD, CHF, PVD, Chronic LE lymph edema who was sent into the ED from wound care for increased lethargy and decreased urination for several days with KARLOS with BUN/Cr of 115/7.2 and K of 6.5 #Acute Renal Failure on CKD stage 3 Renal function improved Trend BUN with steroid taper no signs of uremia #Fluid overload/LE edema/Pleural effusions/COPD/RSV Continue Torsemide ? Left sided thoracentesis #Hypocalcemia/Hyperphosphatemia/Secondary Hyperparatyrodism Phoslo to 1334 TID with meals with goal phos < 5.5 continue Calcitriol #Microcytic Anemia Continue Epogen 94210 units MWF Iron saturation was 28% Melvin Johnson DO
[2016-03-15] MEDS: ALBUTEROL SO4 0.083% IH SOL 2.5 MG/3 ML VIAL.NEB. NEB SCH ×4 (00:20→18:55)
[2016-03-15] MEDS: ACETAMINOPHEN 325 MG TABLET (FP) PO PRN ×3 (02:23→21:52)
[2016-03-15] MEDS: hydrALAZINE HCL 50 MG TABLET (FP) PO SCH ×4 (06:23→22:00)
[2016-03-15 07:57] LABS: MCH 26.2 pg (25.7-33.7); MCHC 31.1 g/dl (32.0-35.9); MEAN CELL VOLUME 84.2 fl (80-96); MEAN PLT VOLUME 8.9 fl (7.5-11.1); PLATELET COUNT 73 K/MM3 (134-434); WHITE BLOOD COUNT 5.1 K/mm3 (4.0-10.0)
[2016-03-15 08:27] LABS: CALCIUM 7.9 mg/dL (8.5-10.1); CREATININE 3.5 mg/dL (0.7-1.3); MAGNESIUM 2.4 mg/dL (1.8-2.4)
[2016-03-15 08:31] LABS: PHOSPHOROUS 4.6 mg/dL (2.5-4.9)
[2016-03-15] MEDS ORDERED: PT OWN MED DRAWER 7, Y5N ONE (09:02)
[2016-03-15] MEDS: ARFORMOTEROL TARTRATE 15 MCG/2 ML VIAL NEB SCH ×2 (09:05→22:30)
[2016-03-15] MEDS: CALCIUM ACETATE 667 MG CAPSULE (FP) PO SCH ×3 (09:06→17:54)
[2016-03-15] MEDS: ACETYLCYSTEINE 20% 200MG/ML 4 ML VIAL *FOR ORAL / INH USE ONLY NEB SCH ×2 (09:06→22:30)
[2016-03-15] MEDS: TIOTROPIUM BROMIDE 18 MCG/INH (DEVICE W/ 5 CAPSULES) IH SCH (09:07)
[2016-03-15] MEDS: CALCITRIOL 0.25 MCG CAPSULE (FP) PO SCH (09:07)
[2016-03-15] MEDS: predniSONE 10 MG TABLET (UD) PO SCH (09:07)
[2016-03-15] MEDS: amLODIPine BESYLATE 10 MG TABLET (FP) PO SCH (09:07)
[2016-03-15] MEDS: TORSEMIDE 20 MG TABLET (FP) PO SCH (09:07)
[2016-03-15] MEDS: PREGABALIN 50 MG CAPSULE PO SCH (09:07)
[2016-03-15] MEDS: DULoxetine HCL 20 MG CAPSULE.DR (FP) PO SCH (09:08)
--- NOTE | 2016-03-15 09:41 | PN ---
Progress Note, Physician Chief Complaint: no acute distress - Current Medication List Current Medications: Active Medications Acetaminophen (Tylenol -) 650 mg PO Q6H PRN PRN Reason: FEVER OR PAIN Last Admin: 03/15/16 02:23 Dose: 650 mg Acetylcysteine (Mucomyst 20 Oral / Inh Use Only*) 200 mg NEB BID [facility] Last Admin: 03/15/16 09:06 Dose: 200 mg Albuterol Sulfate (Ventolin 0.083% Nebulizer Soln -) 1 amp NEB Q4H PRN PRN Reason: SHORT OF BREATH/WHEEZING Last Admin: 03/12/16 07:18 Dose: 1 amp Albuterol Sulfate (Ventolin 0.083% Nebulizer Soln -) 1 amp NEB QIDR [facility] Last Admin: 03/15/16 07:24 Dose: 1 amp Amlodipine Besylate (Norvasc -) 10 mg PO DAILY [facility] Last Admin: 03/15/16 09:07 Dose: 10 mg Arformoterol Tartrate (Brovana (Restricted To Pulmonology/Resp) -) 1 amp NEB BID [facility] Last Admin: 03/15/16 09:05 Dose: 1 amp Calcitriol (Rocaltrol -) 0.25 mcg PO DAILY [facility] Last Admin: 03/15/16 09:07 Dose: 0.25 mcg Calcium Acetate (Phoslo -) 1,334 mg PO TIDCM [facility] Last Admin: 03/15/16 09:06 Dose: 1,334 mg Docusate Sodium (Colace -) 100 mg PO BID PRN PRN Reason: CONSTIPATION Last Admin: 03/11/16 09:21 Dose: 100 mg Duloxetine HCl (Cymbalta -) 20 mg PO DAILY [facility] Last Admin: 03/15/16 09:08 Dose: 20 mg Epoetin [place] (Procrit -) 20,000 unit SQ MOWEFR [facility] Hydralazine HCl (Apresoline -) 50 mg PO TID [facility] Last Admin: 03/15/16 06:23 Dose: 50 mg Prednisone (Deltasone -) 10 mg PO DAILY [facility] Last Admin: 03/15/16 09:07 Dose: 10 mg Pregabalin (Lyrica -) 50 mg PO DAILY [facility] Last Admin: 03/15/16 09:07 Dose: 50 mg Tiotropium [place] (Spiriva -) 1 puff IH DAILY [facility] Last Admin: 03/15/16 09:07 Dose: 1 puff Torsemide (Demadex -) 40 mg PO DAILY [facility] Last Admin: 03/15/16 09:07 Dose: 40 mg - Objective Vital Signs: Vital Signs Temperature 98.1 F 03/15/16 06:36 Pulse Rate 88 03/15/16 06:36 Respiratory Rate 20 03/15/16 06:36 Blood Pressure 124/59 03/15/16 06:36 O2 Sat by Pulse Oximetry (%) 98 03/14/16 21:00 Constitutional: Yes: No Distress Eyes: Yes: Conjunctiva Clear Cardiovascular: Yes: Regular Rate and Rhythm Respiratory: Yes: Other (decreased breath sounds bilaterally) Gastrointestinal: Yes: Soft, Abdomen, Obese Edema: Yes Edema: LLE: 2+, RLE: 2+ Neurological: Yes: Alert Labs: CBC, BMP 03/15/16 06:30 03/15/16 06:30 INR, PTT INR 1.12 (0.82-1.09) 02/18/16 13:00 Laboratory Tests 03/15/16 03/15/16 06:30 06:30 WBC 5.1 Hgb 7.4 L Plt Count 73 L Sodium 139 Creatinine 3.5 H Assessment/Plan Assessment/Plan 75 year old man with a history of HTN, COPD on home O2, Chronic combined systolic/diastolic CHF, CKD, JOY, CAD moderate LV systolic dysfunction, cardiac cath 03/2015 showed 2VD with RCA and LAD disease. He underwent PCI with ABDON of RCA 03/2015 and staged PCI of LAD in 04/2015 with significant improvement in symptoms. He has been feeling well since then, now admitted with cellulitis, sepsis, TARYN on CKD and sob SOB-multifactorial, AE COPD, RSV, pleural effusions, acute on chronic diastolic CHF, sepsis -s/p thoracentesis, awaits second thoracentesis -cont bipap as needed -cont torsemide and monitor I/Os, bun/creat Acute on Chronic diastolic CHF NYHA class IV, LV systolic function normalized post PCI: -cont diuresis -monitor I/Os -monitor BUN/Creat, electrolytes, keep k=4, Mg=2 -not on bblocker due to severe COPD -not on PIPER-I currently due to fluctuating renal function -echo showed normal LV systolic function, no sig valvular abnl CAD-PCI with ABDON of RCA 03/2015 and staged PCI of LAD in 04/2015 -ASA and Effient being held for thoracentesis and dropping platelet count -Would resume ASA 81mg daily when feasible. -monitor H/H -cont lipitor Anemia-guaiac negative. -Monitor H/H -transfuse prn Thrombocytopenia: unclear etiology -Hold antiplatelet Rx for now -further work up as per primary medical team
[2016-03-15] MEDS: EPOETIN ALFA 20,000 UNIT/1 ML VIAL SQ SCH (11:31)
--- NOTE | 2016-03-15 11:53 | PN ---
Progress Note, Physician History of Present Illness: Pt's dyspnea decreased. OOB in chair. Alert, nad. - Current Medication List Current Medications: Active Medications Acetaminophen (Tylenol -) 650 mg PO Q6H PRN PRN Reason: FEVER OR PAIN Last Admin: 03/15/16 09:48 Dose: 650 mg Acetylcysteine (Mucomyst 20 Oral / Inh Use Only*) 200 mg NEB BID [facility] Last Admin: 03/15/16 09:06 Dose: 200 mg Albuterol Sulfate (Ventolin 0.083% Nebulizer Soln -) 1 amp NEB Q4H PRN PRN Reason: SHORT OF BREATH/WHEEZING Last Admin: 03/12/16 07:18 Dose: 1 amp Albuterol Sulfate (Ventolin 0.083% Nebulizer Soln -) 1 amp NEB QIDR [facility] Last Admin: 03/15/16 07:24 Dose: 1 amp Amlodipine Besylate (Norvasc -) 10 mg PO DAILY [facility] Last Admin: 03/15/16 09:07 Dose: 10 mg Arformoterol Tartrate (Brovana (Restricted To Pulmonology/Resp) -) 1 amp NEB BID [facility] Last Admin: 03/15/16 09:05 Dose: 1 amp Calcitriol (Rocaltrol -) 0.25 mcg PO DAILY [facility] Last Admin: 03/15/16 09:07 Dose: 0.25 mcg Calcium Acetate (Phoslo -) 1,334 mg PO TIDCM [facility] Last Admin: 03/15/16 09:06 Dose: 1,334 mg Docusate Sodium (Colace -) 100 mg PO BID PRN PRN Reason: CONSTIPATION Last Admin: 03/11/16 09:21 Dose: 100 mg Duloxetine HCl (Cymbalta -) 20 mg PO DAILY [facility] Last Admin: 03/15/16 09:08 Dose: 20 mg Epoetin [place] (Procrit -) 20,000 unit SQ MOWEFR [facility] Last Admin: 03/15/16 11:31 Dose: 20,000 unit Hydralazine HCl (Apresoline -) 50 mg PO TID [facility] Last Admin: 03/15/16 06:23 Dose: 50 mg Prednisone (Deltasone -) 10 mg PO DAILY [facility] Last Admin: 03/15/16 09:07 Dose: 10 mg Pregabalin (Lyrica -) 50 mg PO DAILY [facility] Last Admin: 03/15/16 09:07 Dose: 50 mg Tiotropium [place] (Spiriva -) 1 puff IH DAILY [facility] Last Admin: 03/15/16 09:07 Dose: 1 puff Torsemide (Demadex -) 40 mg PO DAILY [facility] Last Admin: 03/15/16 09:07 Dose: 40 mg - Objective Vital Signs: Vital Signs Temperature 98.1 F 03/15/16 06:36 Pulse Rate 87 03/15/16 10:26 Respiratory Rate 20 03/15/16 06:36 Blood Pressure 124/59 03/15/16 06:36 O2 Sat by Pulse Oximetry (%) 97 03/15/16 10:26 Constitutional: Yes: No Distress Eyes: No: Sclera Icterus HENT: Yes: Atraumatic, Normocephalic Neck: Yes: Supple, Trachea Midline Cardiovascular: Yes: Regular Rate and Rhythm. No: JVD Respiratory: Yes: CTA Bilaterally Gastrointestinal: Yes: Soft. No: Tenderness Extremities: Yes: Erythema, Other (lymphedema) Edema: Yes Edema: LLE: 4+, RLE: 4+ Neurological: Yes: Alert, Oriented Labs: CBC, BMP 03/15/16 06:30 03/15/16 06:30 INR, PTT INR 1.12 (0.82-1.09) 02/18/16 13:00 Problem List - Problems (1) COPD exacerbation Code(s): J44.1 - CHRONIC OBSTRUCTIVE PULMONARY DISEASE W (ACUTE) EXACERBATION (2) Acute and chronic respiratory failure ([id number]) Code(s): J96.20 - ACUTE AND CHR RESP FAILURE, UNSP W HYPOXIA OR HYPERCAPNIA Qualifiers: Qualified Code(s): J96.21 - Acute and chronic respiratory failure with hypoxia (3) Acute kidney failure Code(s): N17.9 - ACUTE KIDNEY FAILURE, UNSPECIFIED Qualifiers: Qualified Code(s): N17.9 - Acute kidney failure, unspecified (4) Chronic kidney disease (CKD) Code(s): N18.9 - CHRONIC KIDNEY DISEASE, UNSPECIFIED Qualifiers: Qualified Code(s): N18.9 - Chronic kidney disease, unspecified (5) Cellulitis Code(s): L03.90 - CELLULITIS, UNSPECIFIED (6) Hyperkalemia Code(s): E87.5 - HYPERKALEMIA (7) Arteriosclerotic heart disease (ASHD) Code(s): I25.10 - ATHSCL HEART DISEASE OF NISQUALLY CORONARY ARTERY W/O ANG PCTRS (8) Obesities, morbid Code(s): E66.01 - MORBID (SEVERE) OBESITY DUE TO EXCESS CALORIES Qualifiers: Qualified Code(s): E66.2 - Morbid (severe) obesity with alveolar hypoventilation Assessment/Plan T max 100.6 last night. Blood cultures negative. Source fever: cellulitis legs COPD Acute on chronic hypercapnic respiratory failure-respiratory status stable at present CAD; S/P stents; no chest pain or palpitations. CHF/fluid overload . Pt is s/p right thoracentesis (600 cc) Fluid is transudative. Cytology and cultures pending. Acute Renal Failure Chronic Renal Insufficiency Anemia Plan: Torsemide Steroid taper in progress inhaled bronchodilator NIPPV nightly Monitor blood counts; transfuse PRN I.D. re-evaluation
--- NOTE | 2016-03-15 12:36 | PN ---
Progress Note (short form) - Note Progress Note: Renal Follow up for KARLOS Pt seen and examined at the bedside feels fatigued leg edema has worsened Vital Signs Temperature 98.1 F 03/15/16 06:36 Pulse Rate 87 03/15/16 10:26 Respiratory Rate 20 03/15/16 06:36 Blood Pressure 124/59 03/15/16 06:36 O2 Sat by Pulse Oximetry (%) 97 03/15/16 10:26 Intake & Output 03/12/16 03/13/16 03/14/16 03/15/16 23:59 23:59 23:59 23:59 Intake Total 200 750 300 Output Total 2250 1650 1700 300 Balance -2050 -900 -1400 -300 Weight 317 lb 3.2 oz 317 lb 1.6 oz Gen: NAD CVS: RRR No M/R Lungs: dec BS throughout the lung rey Abd: Soft NT + Mild distension Ext: > 3+ LE Lymph edema, no cyanosis or clubbing CBC, BMP 03/15/16 06:30 03/15/16 06:30 Current Medications Acetaminophen (Tylenol -) 650 mg PO Q6H PRN PRN Reason: FEVER OR PAIN Last Admin: 03/15/16 09:48 Dose: 650 mg Acetylcysteine (Mucomyst 20 Oral / Inh Use Only*) 200 mg NEB BID [facility] Last Admin: 03/15/16 09:06 Dose: 200 mg Albuterol Sulfate (Ventolin 0.083% Nebulizer Soln -) 1 amp NEB Q4H PRN PRN Reason: SHORT OF BREATH/WHEEZING Last Admin: 03/12/16 07:18 Dose: 1 amp Albuterol Sulfate (Ventolin 0.083% Nebulizer Soln -) 1 amp NEB QIDR [facility] Last Admin: 03/15/16 12:23 Dose: 1 amp Amlodipine Besylate (Norvasc -) 10 mg PO DAILY [facility] Last Admin: 03/15/16 09:07 Dose: 10 mg Arformoterol Tartrate (Brovana (Restricted To Pulmonology/Resp) -) 1 amp NEB BID [facility] Last Admin: 03/15/16 09:05 Dose: 1 amp Calcitriol (Rocaltrol -) 0.25 mcg PO DAILY [facility] Last Admin: 03/15/16 09:07 Dose: 0.25 mcg Calcium Acetate (Phoslo -) 1,334 mg PO TIDCM [facility] Last Admin: 03/15/16 12:21 Dose: 1,334 mg Docusate Sodium (Colace -) 100 mg PO BID PRN PRN Reason: CONSTIPATION Last Admin: 03/11/16 09:21 Dose: 100 mg Duloxetine HCl (Cymbalta -) 20 mg PO DAILY [facility] Last Admin: 03/15/16 09:08 Dose: 20 mg Epoetin [place] (Procrit -) 20,000 unit SQ MOWEFR [facility] Last Admin: 03/15/16 11:31 Dose: 20,000 unit Hydralazine HCl (Apresoline -) 50 mg PO TID [facility] Last Admin: 03/15/16 06:23 Dose: 50 mg Prednisone (Deltasone -) 10 mg PO DAILY [facility] Last Admin: 03/15/16 09:07 Dose: 10 mg Pregabalin (Lyrica -) 50 mg PO DAILY [facility] Last Admin: 03/15/16 09:07 Dose: 50 mg Tiotropium [place] (Spiriva -) 1 puff IH DAILY [facility] Last Admin: 03/15/16 09:07 Dose: 1 puff Torsemide (Demadex -) 40 mg PO DAILY [facility] Last Admin: 03/15/16 09:07 Dose: 40 mg A/P 75 year old Gentleman with PMhx of CKD Stage 3 (baseline Cr 1.9), Hx of Nephrolithiasis, Hypertension, COPD, CHF, PVD, Chronic LE lymph edema who was sent into the ED from wound care for increased lethargy and decreased urination for several days with KARLOS with BUN/Cr of 115/7.2 and K of 6.5 #Acute Renal Failure on CKD stage 3 secondary to ATN Renal function improving #Fluid overload/LE edema/Pleural effusions/COPD/RSV Continue Torsemide Legs more swollen Check weight if weights elevated can give additional 20mg of toresemide this evening #Hypocalcemia/Hyperphosphatemia/Secondary Hyperparatyrodism Phoslo to 1334 TID with meals with goal phos < 5.5 continue Calcitriol #Microcytic Anemia Continue Epogen 13398 units MWF Iron saturation was 28% Melvin Johnson DO
--- NOTE | 2016-03-15 13:51 | PN ---
Progress Note, Physician History of Present Illness: patients leg not started to leak again redness occurring foul smell present - Current Medication List Current Medications: Active Medications Acetaminophen (Tylenol -) 650 mg PO Q6H PRN PRN Reason: FEVER OR PAIN Last Admin: 03/15/16 09:48 Dose: 650 mg Acetylcysteine (Mucomyst 20 Oral / Inh Use Only*) 200 mg NEB BID [facility] Last Admin: 03/15/16 09:06 Dose: 200 mg Albuterol Sulfate (Ventolin 0.083% Nebulizer Soln -) 1 amp NEB Q4H PRN PRN Reason: SHORT OF BREATH/WHEEZING Last Admin: 03/12/16 07:18 Dose: 1 amp Albuterol Sulfate (Ventolin 0.083% Nebulizer Soln -) 1 amp NEB QIDR [facility] Last Admin: 03/15/16 12:23 Dose: 1 amp Amlodipine Besylate (Norvasc -) 10 mg PO DAILY [facility] Last Admin: 03/15/16 09:07 Dose: 10 mg Arformoterol Tartrate (Brovana (Restricted To Pulmonology/Resp) -) 1 amp NEB BID [facility] [place] Last Admin: 03/15/16 09:05 Dose: 1 amp Calcitriol (Rocaltrol -) 0.25 mcg PO DAILY [facility] [place] Last Admin: 03/15/16 09:07 Dose: 0.25 mcg Calcium Acetate (Phoslo -) 1,334 mg PO TIDCM [facility] Last Admin: 03/15/16 12:21 Dose: 1,334 mg Docusate Sodium (Colace -) 100 mg PO BID PRN PRN Reason: CONSTIPATION Last Admin: 03/11/16 09:21 Dose: 100 mg Duloxetine HCl (Cymbalta -) 20 mg PO DAILY [facility] [place] Last Admin: 03/15/16 09:08 Dose: 20 mg Epoetin [place] (Procrit -) 20,000 unit SQ MOWEFR [facility] [place] Last Admin: 03/15/16 11:31 Dose: 20,000 unit Hydralazine HCl (Apresoline -) 50 mg PO TID [facility] Last Admin: 03/15/16 06:23 Dose: 50 mg Prednisone (Deltasone -) 10 mg PO DAILY [facility] [place] Last Admin: 03/15/16 09:07 Dose: 10 mg Pregabalin (Lyrica -) 50 mg PO DAILY [facility] [place] Last Admin: 03/15/16 09:07 Dose: 50 mg Tiotropium [place] (Spiriva -) 1 puff IH DAILY [facility] Last Admin: 03/15/16 09:07 Dose: 1 puff Torsemide (Demadex -) 40 mg PO DAILY [facility] Last Admin: 03/15/16 09:07 Dose: 40 mg - Objective Vital Signs: Vital Signs Temperature 98.6 F 03/15/16 13:30 Pulse Rate 86 03/15/16 13:30 Respiratory Rate 20 03/15/16 13:30 Blood Pressure 126/79 03/15/16 13:30 O2 Sat by Pulse Oximetry (%) 97 03/15/16 10:26 Constitutional: Yes: Calm, Mild Distress Eyes: Yes: Conjunctiva Clear Cardiovascular: Yes: Regular Rate and Rhythm Respiratory: Yes: Regular, On Nasal O2, Poor Air Entry Gastrointestinal: Yes: Soft Musculoskeletal: Yes: Other Extremities: Yes: Erythema, Other Edema: LLE: 2+, RLE: 2+ Integumentary: Yes: Erythema (started to have erythema again) Wound/Incision: Yes: Draining (foul smell drain) Neurological: Yes: Alert, Oriented Labs: CBC, BMP 03/15/16 06:30 03/15/16 06:30 INR, PTT INR 1.12 (0.82-1.09) 02/18/16 13:00 Assessment/Plan 75 year-old man with a PMH of HTN, PVD, COPD, CKD (baseline Cr 1.9), nephrolithiasis, and chronic LE lymphedema. Admitted in acute renal failure. Acute on chronic renal failure Hyperkalemia Sepsis s Hypertension Peripheral vascular disease Hypercarbic respiratory failure COPD bilateral cellulitis of the legs rsv lung infection pleural effusion plan continue resp physio continue monitoring physiotherapy stable awaiting for pleural tap on the other side will start on doxy
--- NOTE | 2016-03-15 13:54 | PN ---
Teaching Attending Note Name of Resident: Freddie Strickland ATTENDING PHYSICIAN STATEMENT I saw and evaluated the patient. I reviewed the resident's note and discussed the case with the resident. I agree with the resident's findings and plan as documented. SUBJECTIVE: legs are swollen more than before . states that he is not feeling well. shortness of breath on exertion continues. OBJECTIVE: Vital Signs Temperature 98.6 F 03/15/16 13:30 Pulse Rate 86 03/15/16 13:30 Respiratory Rate 20 03/15/16 13:30 Blood Pressure 126/79 03/15/16 13:30 O2 Sat by Pulse Oximetry (%) 97 03/15/16 10:26 GENERAL: The patient is awake, alert, and fully oriented, in no acute distress. HEAD: Normal with no signs of trauma. EYES: sclera anicteric, conjunctiva clear. No ptosis. ENT: moist mucous membranes. NECK: Trachea midline, full range of motion LUNGS: Diminished breath sounds BL, decreased air entery bl, no wheezing, HEART: Regular rate and rhythm, S1, S2 without murmur, rub or gallop. ABDOMEN: Soft, nontender, nondistended, normoactive bowel sounds, large abdomen , no guarding, no rebound,no masses are appreciated. EXTREMITIES: warm, B/L cellulitic changes with lymphedema, B/L LE 3+ pitting edema NEUROLOGICAL: Normal speech, gait not observed. PSYCH: Normal mood, normal affect. SKIN: Warm, dry, normal turgor, skin changes as noted above in extremities. CBCD WBC 5.1 K/mm3 (4.0-10.0) 03/15/16 06:30 RBC 2.82 M/mm3 (4.00-5.60) L 03/15/16 06:30 Hgb 7.4 GM/dL (11.7-16.9) L 03/15/16 06:30 Hct 23.7 % (35.4-49) L 03/15/16 06:30 MCV 84.2 fl (80-96) 03/15/16 06:30 MCHC 31.1 g/dl (32.0-35.9) L 03/15/16 06:30 RDW 22.0 % (11.9-15.9) H 03/15/16 06:30 Plt Count 73 K/MM3 (134-434) L 03/15/16 06:30 MPV 8.9 fl (7.5-11.1) 03/15/16 06:30 CMP Sodium 139 mmol/L (136-145) 03/15/16 06:30 Potassium 3.5 mmol/L (3.5-5.1) 03/15/16 06:30 Chloride 98 mmol/L (98-107) 03/15/16 06:30 Carbon Dioxide 27 mmol/L (21-32) 03/15/16 06:30 Anion Gap 14 (8-16) 03/15/16 06:30 BUN 119 mg/dL (7-18) H* 03/15/16 06:30 Creatinine 3.5 mg/dL (0.7-1.3) H 03/15/16 06:30 Creat Clearance w eGFR 16.70 (>60) 03/06/16 07:30 Random Glucose 100 mg/dL (74-106) D 03/15/16 06:30 Calcium 7.9 mg/dL (8.5-10.1) L 03/15/16 06:30 Total Bilirubin 0.7 mg/dL (0.2-1.0) D 03/06/16 07:30 AST 14 U/L (15-37) L D 03/06/16 07:30 ALT 35 U/L (12-78) 03/06/16 07:30 Alkaline Phosphatase 57 U/L (45-117) 03/06/16 07:30 Total Protein 6.2 g/dl (6.4-8.2) L 03/06/16 07:30 Albumin 3.3 g/dl (3.4-5.0) L 03/06/16 07:30 CARDIAC ENZYMES Creatine Kinase 76 IU/L (39-308) 02/19/16 05:30 Troponin I < 0.02 ng/ml (0.015-0.045) 02/19/16 21:50 Current Medications Generic Name Dose Route Start Last Admin Trade Name Freq PRN Reason Stop Dose Admin Acetaminophen 650 mg 03/09/16 16:50 03/15/16 09:48 Tylenol - PO 650 mg Q6H PRN Administration FEVER OR PAIN Acetylcysteine 200 mg 02/26/16 10:00 03/15/16 09:06 Mucomyst 20 Oral / Inh Use Only* NEB 200 mg BID LESLEE Administration Albuterol Sulfate 1 amp 03/06/16 16:01 03/12/16 07:18 Ventolin 0.083% Nebulizer Soln - NEB 1 amp Q4H PRN Administration SHORT OF BREATH/WHEEZING Albuterol Sulfate 1 amp 03/06/16 18:00 03/15/16 12:23 Ventolin 0.083% Nebulizer Soln - NEB 1 amp QIDR LESLEE Administration Amlodipine Besylate 10 mg 03/11/16 08:30 03/15/16 09:07 Norvasc - PO 10 mg DAILY LESLEE Administration Arformoterol Tartrate 1 amp 02/23/16 22:00 03/15/16 09:05 Brovana (Restricted To Pulmonology/Resp) - NEB 1 amp BID LESLEE Administration Calcitriol 0.25 mcg 02/24/16 12:45 03/15/16 09:07 Rocaltrol - PO 0.25 mcg DAILY LESLEE Administration Calcium Acetate 1,334 mg 03/12/16 12:00 03/15/16 12:21 Phoslo - PO 1,334 mg TIDCM LESLEE Administration Clindamycin HCl 300 mg 03/15/16 18:00 Cleocin - PO Q6HPO LESLEE Docusate Sodium 100 mg 03/10/16 17:34 03/11/16 09:21 Colace - PO 100 mg BID PRN Administration CONSTIPATION Duloxetine HCl 20 mg 02/24/16 10:00 03/15/16 09:08 Cymbalta - PO 20 mg DAILY LESLEE Administration Epoetin Keith 20,000 unit 03/15/16 10:00 03/15/16 11:31 Procrit - SQ 20,000 unit MOWEFR LESLEE Administration Hydralazine HCl 50 mg 02/28/16 22:00 03/15/16 06:23 Apresoline - PO 50 mg TID LESLEE Administration Prednisone 10 mg 03/15/16 10:00 03/15/16 09:07 Deltasone - PO 10 mg DAILY LESLEE Administration Pregabalin 50 mg 03/14/16 10:00 03/15/16 09:07 Lyrica - PO 50 mg DAILY LESLEE Administration Tiotropium [place] 1 puff 02/22/16 11:15 03/15/16 09:07 Spiriva - IH 1 puff DAILY LESLEE Administration Torsemide 40 mg 03/09/16 10:00 03/15/16 09:07 Demadex - PO 40 mg DAILY LESLEE Administration Medication Instructions Recorded Acetaminophen W/ Codeine #3 1 tab PO Q6H PRN 02/18/16 [Tylenol # 3 -] Albuterol 0.083% Nebulizer [place] 1 amp NEB ASDIR PRN 02/18/16 [Ventolin 0.083% Nebulizer Soln -] Aspirin [Ecotrin] 81 mg PO DAILY 02/18/16 Duloxetine HCl 20 mg PO DAILY 02/18/16 Furosemide 20 mg PO HS 02/18/16 Furosemide 40 mg PO DAILY 02/18/16 Hydralazine HCl [Apresoline -] 50 mg PO HS 02/18/16 Prasugrel HCl [Effient] 10 mg PO DAILY 02/18/16 Prednisone 5 mg PO DAILY 02/18/16 Pregabalin [Lyrica] 25 mg PO DAILY 02/18/16 ASSESSMENT AND PLAN: 75 year-old man with a PMHx of HTN, PVD, COPD, CKD (baseline Cr 1.8), nephrolithiasis, D CHF , CAD s/p stenting in 03/23 and chronic LE lymphedema. presented with SOB and was found to have acute hypercapnic resp failure with acute renal failure . # Acute hypercapnic respiratory failure due to acute exacerbation of COPD. on Oxygen NC at this time, Prednisone continue , nebuliazer tx; mucumyst # acute on chronic diastolic heart failure on Demadex now, was on Lasix # Acute bilateral pleural effusions s/p Thoracocentensis by IR on the right side , Plan for the left side thoracentesis by IR. Prednisone taper, Spiriva, BiPAP, Brovana, Acetylcysteine nebulizers, Albuterol nebulizers, Torsemide # Fever resolved; Blood cultures (03/13) pending # Sepsis secondary to cellulitis of legs resolved # KARLOS on stage 3 CKD;c reatinine stable ,on Calcitriol and PhosLo as per Nephrology continue # Microcytic anemia secondary to CKD on Epogen continue # HTN continue Norvasc, Hydralazine, Torsemide # CAD, history of stent Aspirin, Effient on hold for thoracentesis; Not on beta-regine secondary to COPD; Not on ACEI secondary to KARLOS # Peripheral neuropathy continue Lyrica # Hx of Depression continue Cymbalta DVt Px: Effient on hold for now due patient will be going for left Thoracentesisi
--- NOTE | 2016-03-15 17:25 | PN ---
Physical Exam: SUBJECTIVE: Patient seen and examined at bedside. Feels well today. More comfortable in larger chair today. He denies N/V/F/C, abd pain, CP, SOB at rest. Was able to walk from chair to bathroom door today without SOB. Used bipap last night. OBJECTIVE: Vital Signs Temperature 98.6 F 03/15/16 13:30 Pulse Rate 86 03/15/16 13:30 Respiratory Rate 20 03/15/16 13:30 Blood Pressure 126/79 03/15/16 13:30 O2 Sat by Pulse Oximetry (%) 97 03/15/16 10:26 GENERAL: The patient is awake, alert, and fully oriented, in no acute distress. HEAD: Normal with no signs of trauma. EYES: sclera anicteric, conjunctiva clear. No ptosis. ENT: moist mucous membranes. NECK: Trachea midline, full range of motion LUNGS: Diminished breath sounds, CTA, no wheezing HEART: Regular rate and rhythm, S1, S2 without murmur, rub or gallop. ABDOMEN: Obese, Soft, nontender, nondistended, normoactive bowel sounds, no guarding, no rebound, no hepatosplenomegaly, no masses. EXTREMITIES: warm, well-perfused, B/L cellulitic changes, B/L LE 3+ pitting edema and alvarado crusted lesions. Worsening erythema. NEUROLOGICAL: Normal speech, gait not observed. PSYCH: Normal mood, normal affect. SKIN: Warm, dry, normal turgor, skin changes as noted above in extremities. Laboratory Results - last 24 hr 03/15/16 03/15/16 06:30 06:30 WBC 5.1 RBC 2.82 L Hgb 7.4 L Hct 23.7 L MCV 84.2 MCHC 31.1 L RDW 22.0 H Plt Count 73 L MPV 8.9 Sodium 139 Potassium 3.5 Chloride 98 Carbon Dioxide 27 Anion Gap 14 BUN 119 H* Creatinine 3.5 H Random Glucose 100 D Calcium 7.9 L Phosphorus 4.6 D Magnesium 2.4 Microbiology 03/13/16 18:30 Blood - Peripheral Venous Blood Culture - Preliminary NO GROWTH OBTAINED AFTER 24 HOURS, INCUBATION TO CONTINUE FOR 4 DAYS. 03/13/16 18:30 Blood - Peripheral Venous Blood Culture - Preliminary NO GROWTH OBTAINED AFTER 24 HOURS, INCUBATION TO CONTINUE FOR 4 DAYS. 03/08/16 10:15 Blood - Peripheral Venous Blood Culture - Final NO GROWTH AFTER 5 DAYS INCUBATION 03/08/16 10:15 Blood - Peripheral Venous Blood Culture - Final NO GROWTH AFTER 5 DAYS INCUBATION 03/07/16 15:30 Pleural Fluid Gram Stain - Final 03/07/16 15:30 Pleural Fluid Body Fluid Culture - Final NO GROWTH OF AEROBIC ORGANISMS AFTER 48 HOURS INCUBATION 03/07/16 15:30 Pleural Fluid Anaerobic Culture - Final NO ANAEROBES WERE ISOLATED 03/07/16 15:30 Pleural Fluid AFB Smear Concentration - Final 03/07/16 15:30 Pleural Fluid Mycobacterial Culture - Preliminary 03/07/16 15:30 Pleural Fluid ALANA Preparation - Preliminary 03/07/16 15:30 Pleural Fluid Fungal Culture - Preliminary 02/29/16 17:40 Nasopharyngeal Swab Respiratory Virus Panel - Final 02/25/16 17:30 Blood - Peripheral Venous Blood Culture - Final NO GROWTH AFTER 5 DAYS INCUBATION 02/25/16 17:30 Blood - Peripheral Venous Blood Culture - Final NO GROWTH AFTER 5 DAYS INCUBATION 02/28/16 17:40 Nasopharyngeal Swab Influenza Types A,B Antigen (TONI) - Final 02/28/16 17:40 Nasopharyngeal Swab - Final 02/26/16 06:45 Urine - Urine Clean Catch Urine Culture - Final NO GROWTH OBTAINED 02/18/16 19:15 Blood - Peripheral Venous Blood Culture - Final NO GROWTH AFTER 5 DAYS INCUBATION 02/18/16 19:15 Blood - Peripheral Venous Blood Culture - Final NO GROWTH AFTER 5 DAYS INCUBATION 02/18/16 18:10 Urine - Urine Clean Catch Urine Culture - Final NO GROWTH OBTAINED Active Medications Generic Name Dose Route Start Last Admin Trade Name Freq PRN Reason Stop Dose Admin Acetaminophen 650 mg 03/09/16 16:50 03/15/16 09:48 Tylenol - PO 650 mg Q6H PRN Administration FEVER OR PAIN Acetylcysteine 200 mg 02/26/16 10:00 03/15/16 09:06 Mucomyst 20 Oral / Inh Use Only* NEB 200 mg BID LESLEE Administration Albuterol Sulfate 1 amp 03/06/16 16:01 03/12/16 07:18 Ventolin 0.083% Nebulizer Soln - NEB 1 amp Q4H PRN Administration SHORT OF BREATH/WHEEZING Albuterol Sulfate 1 amp 03/06/16 18:00 03/15/16 12:23 Ventolin 0.083% Nebulizer Soln - NEB 1 amp QIDR LESLEE Administration Amlodipine Besylate 10 mg 03/11/16 08:30 03/15/16 09:07 Norvasc - PO 10 mg DAILY LESLEE Administration Arformoterol Tartrate 1 amp 02/23/16 22:00 03/15/16 09:05 Brovana (Restricted To Pulmonology/Resp) - NEB 1 amp BID LESLEE Administration Calcitriol 0.25 mcg 02/24/16 12:45 03/15/16 09:07 Rocaltrol - PO 0.25 mcg DAILY LESLEE Administration Calcium Acetate 1,334 mg 03/12/16 12:00 03/15/16 12:21 Phoslo - PO 1,334 mg TIDCM LESLEE Administration Clindamycin HCl 300 mg 03/15/16 18:00 Cleocin - PO Q6HPO LESLEE Docusate Sodium 100 mg 03/10/16 17:34 03/11/16 09:21 Colace - PO 100 mg BID PRN Administration CONSTIPATION Duloxetine HCl 20 mg 02/24/16 10:00 03/15/16 09:08 Cymbalta - PO 20 mg DAILY LESLEE Administration Epoetin Keith 20,000 unit 03/15/16 10:00 03/15/16 11:31 Procrit - SQ 20,000 unit MOWEFR LESLEE Administration Hydralazine HCl 50 mg 02/28/16 22:00 03/15/16 14:16 Apresoline - PO 50 mg TID LESLEE Administration Polyethylene Glycol 17 gm 03/15/16 22:00 Miralax (For Daily Use) - PO 03/16/16 10:01 BID LESLEE Prednisone 10 mg 03/15/16 10:00 03/15/16 09:07 Deltasone - PO 10 mg DAILY LESLEE Administration Pregabalin 50 mg 03/14/16 10:00 03/15/16 09:07 Lyrica - PO 50 mg DAILY LESLEE Administration Tiotropium [place] 1 puff 02/22/16 11:15 03/15/16 09:07 Spiriva - IH 1 puff DAILY LESLEE Administration Torsemide 40 mg 03/09/16 10:00 03/15/16 09:07 Demadex - PO 40 mg DAILY LESLEE Administration ASSESSMENT/PLAN: 75 year-old man with a PMH of HTN, PVD, COPD, CKD (baseline Cr 1.9), nephrolithiasis, and chronic LE lymphedema. Admitted for acute renal failure ( hyperkalemia) and respiratory distress. # Acute on chronic renal failure -limit fluid intake to 1L per day due to SOB. -119/3.5 today (baseline 1.8-1.9) -torsemide 40 mg po qd -phoslo increased to 1337 mg TID w/meals -goal of phos <5.5 # Acute COPD exacerbation with hypercapnic respiratory failure -Used bipap last night -SOB improving -brovana, albuterol neb q4h PRN, albuterol neb standing qid -prednisone 20 mg PO (day 3), will taper to 10 mg PO qd starting tomorrow -bipap use at night instructed #SOB -improving -Resp virus panel - RSV positive -diuresis with torsemide 40 mg po qd -s/p R thoracentesis. 800 cc fluid removed. -fluid analysis: WBC 232, RBC: 1940, total protein: 2.184, LDH: 91.591, glucose: 215.755, amylase 8.508. -BiPap use at night. -thoracentesis now on L side - held ASA and prasugrel (will hold for 5 days total before thoracentesis) -today is day 2 off asa and prasugrel #Cellulitis of B/L LE -worsening -doxy as per ID recommendations # Anemia, microcytic -Anemia of chronic disease secondary to CKD, TIBC low -Hgb 7.4 (s/p 2 unit PRBC this admission); -Transfuse if Hgb <7. -ASA held due to drop in Hgb -resume when Hgb higher & stable -Epoetin 20,000 units sq 3 times a week MWF # Sepsis secondary to B/L lower extremity cellulitis -resolved -off abx # HTN -hydralazine 50 mg PO TID -norvasc 10 mg po qd #. CHF (diastolic) -torsemide 40 mg qd -Causing his LE edema most likely -will get B/L LE duplex to r/o PE # Hx of Depression -c/w cymbalta 20mg #Neuropathy -lyrica 50 mg PO qd # CAD -prasugrel 10 mg PO qd, on hold for now for thoracentesis -until 04/2016 #. FEN -hypocalcemia -c/w calcitriol - f/u BMP # Dispo: monitor on floors. Continue PT Problem List - Problems (1) Acute kidney failure Code(s): N17.9 - ACUTE KIDNEY FAILURE, UNSPECIFIED Qualifiers: Qualified Code(s): N17.9 - Acute kidney failure, unspecified (2) COPD exacerbation Code(s): J44.1 - CHRONIC OBSTRUCTIVE PULMONARY DISEASE W (ACUTE) EXACERBATION (3) Hyperkalemia Code(s): E87.5 - HYPERKALEMIA (4) Acute and chronic respiratory failure ([id number]) Code(s): J96.20 - ACUTE AND CHR RESP FAILURE, UNSP W HYPOXIA OR HYPERCAPNIA Qualifiers: Qualified Code(s): J96.21 - Acute and chronic respiratory failure with hypoxia (5) Acute exacerbation of chronic obstructive pulmonary disease (COPD) Code(s): J44.1 - CHRONIC OBSTRUCTIVE PULMONARY DISEASE W (ACUTE) EXACERBATION (6) Acute on chronic diastolic (congestive) heart failure Code(s): I50.33 - ACUTE ON CHRONIC DIASTOLIC (CONGESTIVE) HEART FAILURE (7) Anxiety and depression Code(s): F41.9 - ANXIETY DISORDER, UNSPECIFIED F32.9 - MAJOR DEPRESSIVE DISORDER, SINGLE EPISODE, UNSPECIFIED (8) Cellulitis Code(s): L03.90 - CELLULITIS, UNSPECIFIED (9) Chronic kidney disease (CKD) Code(s): N18.9 - CHRONIC KIDNEY DISEASE, UNSPECIFIED Qualifiers: Qualified Code(s): N18.9 - Chronic kidney disease, unspecified (10) Diastolic CHF Code(s): I50.30 - UNSPECIFIED DIASTOLIC (CONGESTIVE) HEART FAILURE (11) Hyperlipidemia Code(s): E78.5 - HYPERLIPIDEMIA, UNSPECIFIED (12) Hypertension Code(s): I10 - ESSENTIAL (PRIMARY) HYPERTENSION (13) Obesities, morbid Code(s): E66.01 - MORBID (SEVERE) OBESITY DUE TO EXCESS CALORIES Qualifiers: Qualified Code(s): E66.2 - Morbid (severe) obesity with alveolar hypoventilation (14) Respiratory failure with hypoxia and hypercapnia Code(s): J96.91 - RESPIRATORY FAILURE, UNSPECIFIED WITH HYPOXIA J96.92 - RESPIRATORY FAILURE, UNSPECIFIED WITH HYPERCAPNIA Qualifiers: Qualified Code(s): J96.21 - Acute and chronic respiratory failure with hypoxia; J96.22 - Acute and chronic respiratory failure with hypercapnia (15) Shortness of breath Code(s): R06.02 - SHORTNESS OF BREATH (16) Hematoma Code(s): T14.8 - OTHER INJURY OF UNSPECIFIED BODY REGION Visit type - Emergency Visit Emergency Visit: Yes ED Registration Date: 02/18/16 Care time: The patient presented to the Emergency Department on the above date and was hospitalized for further evaluation of their emergent condition. - New Patient This patient is new to me today: No - Critical Care Critical Care patient: No
[2016-03-15] MEDS: CLINDAMYCIN HCL 150 MG CAPSULE (FP) PO SCH (17:53)
[2016-03-15] MEDS: POLYETHYLENE GLYCOL 3350 119 GM BTL PO SCH (21:45)
[2016-03-16] MEDS: CLINDAMYCIN HCL 150 MG CAPSULE (FP) PO SCH ×3 (00:05→11:47)
[2016-03-16] MEDS: ACETAMINOPHEN 325 MG TABLET (FP) PO PRN ×2 (03:34→16:57)
[2016-03-16] MEDS: hydrALAZINE HCL 50 MG TABLET (FP) PO SCH (06:02)
[2016-03-16] MEDS: ALBUTEROL SO4 0.083% IH SOL 2.5 MG/3 ML VIAL.NEB. NEB SCH ×5 (07:17→23:50)
[2016-03-16 07:54] LABS: MCH 26.1 pg (25.7-33.7); MCHC 31.3 g/dl (32.0-35.9); MEAN CELL VOLUME 83.6 fl (80-96); MEAN PLT VOLUME 9.3 fl (7.5-11.1); PLATELET COUNT 55 K/MM3 (134-434); RDW 22.3 % (11.9-15.9); WHITE BLOOD COUNT 5.1 K/mm3 (4.0-10.0)
[2016-03-16 08:42] LABS: MAGNESIUM 2.4 mg/dL (1.8-2.4)
[2016-03-16 08:45] LABS: CREATININE 3.8 mg/dL (0.7-1.3); PHOSPHOROUS 4.2 mg/dL (2.5-4.9)
[2016-03-16] MEDS: CALCIUM ACETATE 667 MG CAPSULE (FP) PO SCH ×3 (09:35→16:57)
[2016-03-16] MEDS: TORSEMIDE 20 MG TABLET (FP) PO SCH (09:36)
[2016-03-16] MEDS: PREGABALIN 50 MG CAPSULE PO SCH (09:36)
[2016-03-16] MEDS: predniSONE 10 MG TABLET (UD) PO SCH (09:36)
[2016-03-16] MEDS: CALCITRIOL 0.25 MCG CAPSULE (FP) PO SCH (09:38)
[2016-03-16] MEDS: DULoxetine HCL 20 MG CAPSULE.DR (FP) PO SCH (09:39)
[2016-03-16] MEDS: amLODIPine BESYLATE 10 MG TABLET (FP) PO SCH (09:47)
[2016-03-16] MEDS: DOCUSATE SODIUM 100 MG CAPSULE (FP) PO PRN (09:54)
[2016-03-16] MEDS: POLYETHYLENE GLYCOL 3350 119 GM BTL PO SCH (09:54)
--- NOTE | 2016-03-16 09:57 | PN ---
Progress Note, Physician Chief Complaint: feels constipated Platelets dropping History of Present Illness: low grade fever - Current Medication List Current Medications: Active Medications Acetaminophen (Tylenol -) 650 mg PO Q6H PRN PRN Reason: FEVER OR PAIN Last Admin: 03/16/16 03:34 Dose: 650 mg Acetylcysteine (Mucomyst 20 Oral / Inh Use Only*) 200 mg NEB BID [facility] Last Admin: 03/15/16 22:30 Dose: 200 mg Albuterol Sulfate (Ventolin 0.083% Nebulizer Soln -) 1 amp NEB Q4H PRN PRN Reason: SHORT OF BREATH/WHEEZING Last Admin: 03/12/16 07:18 Dose: 1 amp Albuterol Sulfate (Ventolin 0.083% Nebulizer Soln -) 1 amp NEB QIDR [facility] Last Admin: 03/16/16 07:17 Dose: 1 amp Amlodipine Besylate (Norvasc -) 10 mg PO DAILY [facility] Last Admin: 03/16/16 09:47 Dose: 10 mg Arformoterol Tartrate (Brovana (Restricted To Pulmonology/Resp) -) 1 amp NEB BID [facility] Last Admin: 03/15/16 22:30 Dose: 1 amp Calcitriol (Rocaltrol -) 0.25 mcg PO DAILY [facility] Last Admin: 03/16/16 09:38 Dose: 0.25 mcg Calcium Acetate (Phoslo -) 1,334 mg PO TIDCM [facility] Last Admin: 03/16/16 09:35 Dose: 1,334 mg Clindamycin HCl (Cleocin -) 300 mg PO Q6HPO [facility] Last Admin: 03/16/16 06:02 Dose: 300 mg Docusate Sodium (Colace -) 100 mg PO BID PRN PRN Reason: CONSTIPATION Last Admin: 03/11/16 09:21 Dose: 100 mg Duloxetine HCl (Cymbalta -) 20 mg PO DAILY [facility] Last Admin: 03/16/16 09:39 Dose: 20 mg Epoetin [place] (Procrit -) 20,000 unit SQ MOWEFR [facility] Last Admin: 03/15/16 11:31 Dose: 20,000 unit Hydralazine HCl (Apresoline -) 50 mg PO TID [facility] Last Admin: 03/16/16 06:02 Dose: 50 mg Polyethylene Glycol (Miralax (For Daily Use) -) 17 gm PO BID [facility] Stop: 03/16/16 10:01 Last Admin: 03/15/16 21:45 Dose: Not Given Prednisone (Deltasone -) 10 mg PO DAILY [facility] Last Admin: 03/16/16 09:36 Dose: 10 mg Pregabalin (Lyrica -) 50 mg PO DAILY [facility] Last Admin: 03/16/16 09:36 Dose: 50 mg Tiotropium [place] (Spiriva -) 1 puff IH DAILY [facility] Last Admin: 03/15/16 09:07 Dose: 1 puff Torsemide (Demadex -) 40 mg PO DAILY [facility] Last Admin: 03/16/16 09:36 Dose: 40 mg - Objective Vital Signs: Vital Signs Temperature 100.3 F H 03/16/16 06:55 Pulse Rate 94 H 03/16/16 06:55 Respiratory Rate 20 03/16/16 06:55 Blood Pressure 126/56 03/16/16 06:55 O2 Sat by Pulse Oximetry (%) 97 03/15/16 19:33 Constitutional: Yes: No Distress Cardiovascular: Yes: Regular Rate and Rhythm Respiratory: Yes: Other (decreased breath sounds no wheezing) Edema: Yes Edema: RUE: 2+, LLE: 2+ Neurological: Yes: Alert Labs: CBC, BMP 03/16/16 06:30 03/16/16 06:30 INR, PTT INR 1.12 (0.82-1.09) 02/18/16 13:00 Laboratory Tests 03/16/16 03/16/16 06:30 06:30 WBC 5.1 Hgb 7.3 L Hct 23.3 L Plt Count 55 L D Sodium 139 Potassium 3.7 BUN 124 H* Creatinine 3.8 H Magnesium 2.4 Assessment/Plan Worsening thrombocytopenia of unclear etiology Acute on chronic renal failure Low grade fever CAD Chronic diastolic CHF RSV lung infection REC: Heme consult -antiplatelet Rx on hold for thoracentesis and dropping platelets Decrease torsemide, renal following. Fever work up as per primary medical team and ID.
[2016-03-16] MEDS: ACETYLCYSTEINE 20% 200MG/ML 4 ML VIAL *FOR ORAL / INH USE ONLY NEB SCH ×2 (11:00→22:50)
[2016-03-16] MEDS: ARFORMOTEROL TARTRATE 15 MCG/2 ML VIAL NEB SCH ×2 (11:00→22:50)
[2016-03-16] MEDS: TIOTROPIUM BROMIDE 18 MCG/INH (DEVICE W/ 5 CAPSULES) IH SCH (11:10)
[2016-03-16] MEDS ORDERED: traMADol HCL 50 MG TABLET PO PRN (11:28)
--- NOTE | 2016-03-16 12:57 | PN ---
Teaching Attending Note Name of Resident: Freddie Strickland ATTENDING PHYSICIAN STATEMENT I saw and evaluated the patient. I reviewed the resident's note and discussed the case with the resident. I agree with the resident's findings and plan as documented. SUBJECTIVE: Patient is feeling better, lying in bed with no acute distress. Legs are swollen and positive for leakage. Positive for fever of 100.3 last night. OBJECTIVE: Vital Signs Temperature 98.4 F 03/16/16 10:00 Pulse Rate 88 03/16/16 11:36 Respiratory Rate 20 03/16/16 10:00 Blood Pressure 110/58 03/16/16 10:00 O2 Sat by Pulse Oximetry (%) 93 L 03/16/16 11:36 GENERAL: The patient is awake, alert, and fully oriented, in no acute distress. HEAD: Normal with no signs of trauma. EYES: sclera anicteric, conjunctiva clear. ENT: moist mucous membranes. NECK: Trachea midline, full range of motion LUNGS: Diminished breath sounds BL, decreased air entery bl, no wheezing, HEART: Regular rate and rhythm, S1, S2 without murmur, rub or gallop. ABDOMEN: Soft, nontender, nondistended, normoactive bowel sounds, large abdomen , no masses are appreciated. EXTREMITIES: warm, B/L cellulitic changes with lymphedema, B/L LE 3+ pitting edema NEUROLOGICAL: Normal speech, gait not observed. PSYCH: Normal mood, normal affect. SKIN: Warm, dry, normal turgor, skin changes as noted above in extremities. CBCD WBC 5.1 K/mm3 (4.0-10.0) 03/16/16 06:30 RBC 2.79 M/mm3 (4.00-5.60) L 03/16/16 06:30 Hgb 7.3 GM/dL (11.7-16.9) L 03/16/16 06:30 Hct 23.3 % (35.4-49) L 03/16/16 06:30 MCV 83.6 fl (80-96) 03/16/16 06:30 MCHC 31.3 g/dl (32.0-35.9) L 03/16/16 06:30 RDW 22.3 % (11.9-15.9) H 03/16/16 06:30 Plt Count 55 K/MM3 (134-434) L D 03/16/16 06:30 MPV 9.3 fl (7.5-11.1) 03/16/16 06:30 CMP Sodium 139 mmol/L (136-145) 03/16/16 06:30 Potassium 3.7 mmol/L (3.5-5.1) 03/16/16 06:30 Chloride 98 mmol/L (98-107) 03/16/16 06:30 Carbon Dioxide 28 mmol/L (21-32) 03/16/16 06:30 Anion Gap 13 (8-16) 03/16/16 06:30 BUN 124 mg/dL (7-18) H* 03/16/16 06:30 Creatinine 3.8 mg/dL (0.7-1.3) H 03/16/16 06:30 Creat Clearance w eGFR 16.70 (>60) 03/06/16 07:30 Random Glucose 86 mg/dL (74-106) 03/16/16 06:30 Calcium 8.0 mg/dL (8.5-10.1) L 03/16/16 06:30 Total Bilirubin 0.7 mg/dL (0.2-1.0) D 03/06/16 07:30 AST 14 U/L (15-37) L D 03/06/16 07:30 ALT 35 U/L (12-78) 03/06/16 07:30 Alkaline Phosphatase 57 U/L (45-117) 03/06/16 07:30 Total Protein 6.2 g/dl (6.4-8.2) L 03/06/16 07:30 Albumin 3.3 g/dl (3.4-5.0) L 03/06/16 07:30 CARDIAC ENZYMES Creatine Kinase 76 IU/L (39-308) 02/19/16 05:30 Troponin I < 0.02 ng/ml (0.015-0.045) 02/19/16 21:50 Current Medications Generic Name Dose Route Start Last Admin Trade Name Freq PRN Reason Stop Dose Admin Acetaminophen 650 mg 03/09/16 16:50 03/16/16 03:34 Tylenol - PO 650 mg Q6H PRN Administration FEVER OR PAIN Acetylcysteine 200 mg 02/26/16 10:00 03/16/16 11:00 Mucomyst 20 Oral / Inh Use Only* NEB 200 mg BID LESLEE Administration Albuterol Sulfate 1 amp 03/06/16 16:01 03/12/16 07:18 Ventolin 0.083% Nebulizer Soln - NEB 1 amp Q4H PRN Administration SHORT OF BREATH/WHEEZING Albuterol Sulfate 1 amp 03/06/16 18:00 03/16/16 07:17 Ventolin 0.083% Nebulizer Soln - NEB 1 amp QIDR LESLEE Administration Amlodipine Besylate 10 mg 03/11/16 08:30 03/16/16 09:47 Norvasc - PO 10 mg DAILY LESLEE Administration Arformoterol Tartrate 1 amp 02/23/16 22:00 03/16/16 11:00 Brovana (Restricted To Pulmonology/Resp) - NEB 1 amp BID LESLEE Administration Calcitriol 0.25 mcg 02/24/16 12:45 03/16/16 09:38 Rocaltrol - PO 0.25 mcg DAILY LESLEE Administration Calcium Acetate 1,334 mg 03/12/16 12:00 03/16/16 11:47 Phoslo - PO 1,334 mg TIDCM LESLEE Administration Clindamycin HCl 300 mg 03/15/16 18:00 03/16/16 11:47 Cleocin - PO 300 mg Q6HPO LESLEE Administration Docusate Sodium 100 mg 03/10/16 17:34 03/16/16 09:54 Colace - PO 100 mg BID PRN Administration CONSTIPATION Duloxetine HCl 20 mg 02/24/16 10:00 03/16/16 09:39 Cymbalta - PO 20 mg DAILY LESLEE Administration Epoetin Keith 20,000 unit 03/15/16 10:00 03/15/16 11:31 Procrit - SQ 20,000 unit MOWEFR LESLEE Administration Hydralazine HCl 50 mg 02/28/16 22:00 03/16/16 06:02 Apresoline - PO 50 mg TID LESLEE Administration Prednisone 10 mg 03/15/16 10:00 03/16/16 09:36 Deltasone - PO 10 mg DAILY LESLEE Administration Pregabalin 50 mg 03/14/16 10:00 03/16/16 09:36 Lyrica - PO 50 mg DAILY LESLEE Administration Tiotropium [place] 1 puff 02/22/16 11:15 03/16/16 11:10 Spiriva - IH 1 puff DAILY LESLEE Administration Torsemide 20 mg 03/17/16 10:00 Demadex - PO DAILY LESLEE Tramadol HCl 50 mg 03/16/16 11:28 03/16/16 11:48 Ultram - PO 50 mg Q12H PRN Administration PAIN Medication Instructions Recorded Acetaminophen W/ Codeine #3 1 tab PO Q6H PRN 02/18/16 [Tylenol # 3 -] Albuterol 0.083% Nebulizer Soni 1 amp NEB ASDIR PRN 02/18/16 [Ventolin 0.083% Nebulizer Soln -] Aspirin [Ecotrin] 81 mg PO DAILY 02/18/16 Duloxetine HCl 20 mg PO DAILY 02/18/16 Furosemide 20 mg PO HS 02/18/16 Furosemide 40 mg PO DAILY 02/18/16 Hydralazine HCl [Apresoline -] 50 mg PO HS 02/18/16 Prasugrel HCl [Effient] 10 mg PO DAILY 02/18/16 Prednisone 5 mg PO DAILY 02/18/16 Pregabalin [Lyrica] 25 mg PO DAILY 02/18/16 Microbiology 03/13/16 18:30 Blood - Peripheral Venous Blood Culture - Preliminary NO GROWTH OBTAINED AFTER 48 HOURS, INCUBATION TO CONTINUE FOR 3 DAYS. 03/13/16 18:30 Blood - Peripheral Venous Blood Culture - Preliminary NO GROWTH OBTAINED AFTER 48 HOURS, INCUBATION TO CONTINUE FOR 3 DAYS. 03/08/16 10:15 Blood - Peripheral Venous Blood Culture - Final NO GROWTH AFTER 5 DAYS INCUBATION 03/08/16 10:15 Blood - Peripheral Venous Blood Culture - Final NO GROWTH AFTER 5 DAYS INCUBATION 03/07/16 15:30 Pleural Fluid Gram Stain - Final 03/07/16 15:30 Pleural Fluid Body Fluid Culture - Final NO GROWTH OF AEROBIC ORGANISMS AFTER 48 HOURS INCUBATION 03/07/16 15:30 Pleural Fluid Anaerobic Culture - Final NO ANAEROBES WERE ISOLATED 03/07/16 15:30 Pleural Fluid AFB Smear Concentration - Final 03/07/16 15:30 Pleural Fluid Mycobacterial Culture - Preliminary 03/07/16 15:30 Pleural Fluid ALANA Preparation - Preliminary 03/07/16 15:30 Pleural Fluid Fungal Culture - Preliminary 02/29/16 17:40 Nasopharyngeal Swab Respiratory Virus Panel - Final 02/25/16 17:30 Blood - Peripheral Venous Blood Culture - Final NO GROWTH AFTER 5 DAYS INCUBATION 02/25/16 17:30 Blood - Peripheral Venous Blood Culture - Final NO GROWTH AFTER 5 DAYS INCUBATION 02/28/16 17:40 Nasopharyngeal Swab Influenza Types A,B Antigen (TONI) - Final 02/28/16 17:40 Nasopharyngeal Swab - Final 02/26/16 06:45 Urine - Urine Clean Catch Urine Culture - Final NO GROWTH OBTAINED 02/18/16 19:15 Blood - Peripheral Venous Blood Culture - Final NO GROWTH AFTER 5 DAYS INCUBATION 02/18/16 19:15 Blood - Peripheral Venous Blood Culture - Final NO GROWTH AFTER 5 DAYS INCUBATION 02/18/16 18:10 Urine - Urine Clean Catch Urine Culture - Final NO GROWTH OBTAINED ASSESSMENT AND PLAN: 75 year-old man with a PMHx of HTN, PVD, COPD, CKD (baseline Cr 1.8), nephrolithiasis, D CHF , CAD s/p stenting in 03/23 and chronic LE lymphedema. presented with SOB and was found to have acute hypercapnic resp failure with acute renal failure . # Acute hypercapnic respiratory failure due to acute exacerbation of COPD. on Oxygen NC at this time, Prednisone continue , nebuliazer tx; mucomyst , Bipap prn, # acute on chronic diastolic heart failure on Demadex now lowered the dose to 20mg since patient kidney function is deteriorating, s/p IV Lasix ; nephrology and cadriology on the case. # Acute bilateral pleural effusions s/p Thoracocentensis by IR on the right side , Plan for the left side thoracentesis by IR. Prednisone taper, Spiriva, BiPAP, Brovana, Acetylcysteine nebulizers, Albuterol nebulizers, Torsemide # Continuous to have fever ; Blood cultures (03/13) pending, will monitor # s/p Sepsis secondary to cellulitis of legs continuous with swelling of lower extremities on po meds,discussed with ID will switch to IV Clindamycin. # KARLOS on stage 3 CKD;creatinine stable ,on Calcitriol and PhosLo as per Nephrology continue # Microcytic anemia secondary to CKD on Epogen continue # HTN continue Norvasc, Hydralazine, Torsemide # CAD, history of stent Aspirin, Effient on hold for thoracentesis; Not on beta-regine secondary to COPD; Not on ACEI secondary to KARLOS # Peripheral neuropathy continue Lyrica # Hx of Depression continue Cymbalta DVt Px: Effient on hold for now due patient will be going for left Thoracentesisi
--- NOTE | 2016-03-16 13:00 | PN ---
Physical Exam: SUBJECTIVE: Pt seen and examined at bedside. Feels ok, breathing is same as yesterday. Denies N/V, abd pain, CP, SOB at rest, diarrhea. Hasn't had BM in last 3-4 days. OBJECTIVE: Vital Signs Temperature 98.4 F 03/16/16 10:00 Pulse Rate 88 03/16/16 11:36 Respiratory Rate 20 03/16/16 10:00 Blood Pressure 110/58 03/16/16 10:00 O2 Sat by Pulse Oximetry (%) 93 L 03/16/16 11:36 GENERAL: The patient is awake, alert, and fully oriented, in no acute distress. HEAD: Normal with no signs of trauma. EYES: sclera anicteric, conjunctiva clear. No ptosis. ENT: moist mucous membranes. NECK: Trachea midline, full range of motion LUNGS: Diminished breath sounds, CTA, no wheezing HEART: Regular rate and rhythm, S1, S2 without murmur, rub or gallop. ABDOMEN: Obese, Soft, nontender, nondistended, normoactive bowel sounds, no guarding, no rebound, no hepatosplenomegaly, no masses. EXTREMITIES: warm, well-perfused, B/L cellulitic changes, B/L LE 3+ pitting edema and alvarado crusted lesions. NEUROLOGICAL: Normal speech, gait not observed. PSYCH: Normal mood, normal affect. SKIN: Warm, dry, normal turgor, skin changes as noted above in extremities. Laboratory Results - last 24 hr 03/16/16 03/16/16 06:30 06:30 WBC 5.1 RBC 2.79 L Hgb 7.3 L Hct 23.3 L MCV 83.6 MCHC 31.3 L RDW 22.3 H Plt Count 55 L D MPV 9.3 Sodium 139 Potassium 3.7 Chloride 98 Carbon Dioxide 28 Anion Gap 13 BUN 124 H* Creatinine 3.8 H Random Glucose 86 Calcium 8.0 L Phosphorus 4.2 Magnesium 2.4 Microbiology 03/13/16 18:30 Blood - Peripheral Venous Blood Culture - Preliminary NO GROWTH OBTAINED AFTER 48 HOURS, INCUBATION TO CONTINUE FOR 3 DAYS. 03/13/16 18:30 Blood - Peripheral Venous Blood Culture - Preliminary NO GROWTH OBTAINED AFTER 48 HOURS, INCUBATION TO CONTINUE FOR 3 DAYS. 03/08/16 10:15 Blood - Peripheral Venous Blood Culture - Final NO GROWTH AFTER 5 DAYS INCUBATION 03/08/16 10:15 Blood - Peripheral Venous Blood Culture - Final NO GROWTH AFTER 5 DAYS INCUBATION 03/07/16 15:30 Pleural Fluid Gram Stain - Final 03/07/16 15:30 Pleural Fluid Body Fluid Culture - Final NO GROWTH OF AEROBIC ORGANISMS AFTER 48 HOURS INCUBATION 03/07/16 15:30 Pleural Fluid Anaerobic Culture - Final NO ANAEROBES WERE ISOLATED 03/07/16 15:30 Pleural Fluid AFB Smear Concentration - Final 03/07/16 15:30 Pleural Fluid Mycobacterial Culture - Preliminary 03/07/16 15:30 Pleural Fluid ALANA Preparation - Preliminary 03/07/16 15:30 Pleural Fluid Fungal Culture - Preliminary 02/29/16 17:40 Nasopharyngeal Swab Respiratory Virus Panel - Final 02/25/16 17:30 Blood - Peripheral Venous Blood Culture - Final NO GROWTH AFTER 5 DAYS INCUBATION 02/25/16 17:30 Blood - Peripheral Venous Blood Culture - Final NO GROWTH AFTER 5 DAYS INCUBATION 02/28/16 17:40 Nasopharyngeal Swab Influenza Types A,B Antigen (TONI) - Final 02/28/16 17:40 Nasopharyngeal Swab - Final 02/26/16 06:45 Urine - Urine Clean Catch Urine Culture - Final NO GROWTH OBTAINED 02/18/16 19:15 Blood - Peripheral Venous Blood Culture - Final NO GROWTH AFTER 5 DAYS INCUBATION 02/18/16 19:15 Blood - Peripheral Venous Blood Culture - Final NO GROWTH AFTER 5 DAYS INCUBATION 02/18/16 18:10 Urine - Urine Clean Catch Urine Culture - Final NO GROWTH OBTAINED Active Medications Generic Name Dose Route Start Last Admin Trade Name Freq PRN Reason Stop Dose Admin Acetaminophen 650 mg 03/09/16 16:50 03/16/16 03:34 Tylenol - PO 650 mg Q6H PRN Administration FEVER OR PAIN Acetylcysteine 200 mg 02/26/16 10:00 03/16/16 11:00 Mucomyst 20 Oral / Inh Use Only* NEB 200 mg BID LESLEE Administration Albuterol Sulfate 1 amp 03/06/16 16:01 03/12/16 07:18 Ventolin 0.083% Nebulizer Soln - NEB 1 amp Q4H PRN Administration SHORT OF BREATH/WHEEZING Albuterol Sulfate 1 amp 03/06/16 18:00 03/16/16 07:17 Ventolin 0.083% Nebulizer Soln - NEB 1 amp QIDR LESLEE Administration Amlodipine Besylate 10 mg 03/11/16 08:30 03/16/16 09:47 Norvasc - PO 10 mg DAILY LESLEE Administration Arformoterol Tartrate 1 amp 02/23/16 22:00 03/16/16 11:00 Brokervina (Restricted To Pulmonology/Resp) - NEB 1 amp BID LESLEE Administration Calcitriol 0.25 mcg 02/24/16 12:45 03/16/16 09:38 Rocaltrol - PO 0.25 mcg DAILY LESLEE Administration Calcium Acetate 1,334 mg 03/12/16 12:00 03/16/16 11:47 Phoslo - PO 1,334 mg TIDCM LESLEE Administration Clindamycin HCl 300 mg 03/15/16 18:00 03/16/16 11:47 Cleocin - PO 300 mg Q6HPO LESLEE Administration Docusate Sodium 100 mg 03/10/16 17:34 03/16/16 09:54 Colace - PO 100 mg BID PRN Administration CONSTIPATION Duloxetine HCl 20 mg 02/24/16 10:00 03/16/16 09:39 Cymbalta - PO 20 mg DAILY LESLEE Administration Epoetin Keith 20,000 unit 03/15/16 10:00 03/15/16 11:31 Procrit - SQ 20,000 unit MOWEFR LESLEE Administration Hydralazine HCl 50 mg 02/28/16 22:00 03/16/16 06:02 Apresoline - PO 50 mg TID LESLEE Administration Prednisone 10 mg 03/15/16 10:00 03/16/16 09:36 Deltasone - PO 10 mg DAILY LESLEE Administration Pregabalin 50 mg 03/14/16 10:00 03/16/16 09:36 Lyrica - PO 50 mg DAILY LESLEE Administration Tiotropium [place] 1 puff 02/22/16 11:15 03/16/16 11:10 Spiriva - IH 1 puff DAILY LESLEE Administration Torsemide 20 mg 03/17/16 10:00 Demadex - PO DAILY LESLEE Tramadol HCl 50 mg 03/16/16 11:28 03/16/16 11:48 Ultram - PO 50 mg Q12H PRN Administration PAIN ASSESSMENT/PLAN: 75 year-old man with a PMH of HTN, PVD, COPD, CKD (baseline Cr 1.9), nephrolithiasis, and chronic LE lymphedema. Admitted for acute renal failure ( hyperkalemia) and respiratory distress. # Acute on chronic renal failure -limit fluid intake to 1L per day due to SOB. -124/3.8 today (baseline 1.8-1.9) -torsemide reduced to 20 mg po qd -phoslo increased to 1337 mg TID w/meals -goal of phos <5.5 # Acute COPD exacerbation with hypercapnic respiratory failure -Used bipap last night -SOB improving -brovana, albuterol neb q4h PRN, albuterol neb standing qid -prednisone 20 mg PO (day 3), will taper to 10 mg PO qd starting tomorrow -bipap use at night instructed #SOB -improving -Resp virus panel - RSV positive -diuresis with torsemide 40 mg po qd -s/p R thoracentesis. 800 cc fluid removed. -fluid analysis: WBC 232, RBC: 1940, total protein: 2.184, LDH: 91.591, glucose: 215.755, amylase 8.508. -BiPap use at night. -thoracentesis now on L side - held ASA and prasugrel (will hold for 5 days total before thoracentesis) -today is day 3 off asa and prasugrel #Fevers -Secondary to infected pleural effusion vs cellulitis -tylenol 650 mg PO q6h PRN fever #Cellulitis of B/L LE -worsening -clindamycin as per ID recommendations # Anemia, microcytic -Anemia of chronic disease secondary to CKD, TIBC low -Hgb 7.4 (s/p 2 unit PRBC this admission); -Transfuse if Hgb <7. -ASA held due to drop in Hgb -resume when Hgb higher & stable -Epoetin 20,000 units sq 3 times a week MWF # HTN -hydralazine stopped due to possible renal hypoperfusion with increased creatinine now. -goal systolic BP 120-140 -norvasc 10 mg po qd #. CHF (diastolic) -torsemide decreased to 20 mg qd -Causing his LE edema most likely -will get B/L LE duplex to r/o PE # Hx of Depression -c/w cymbalta 20mg #Neuropathy -lyrica 50 mg PO qd # CAD -prasugrel 10 mg PO qd, on hold for now for thoracentesis -until 04/2016 #. FEN -hypocalcemia -c/w calcitriol - f/u BMP # Dispo: monitor on floors. Continue PT Problem List - Problems (1) Acute kidney failure Code(s): N17.9 - ACUTE KIDNEY FAILURE, UNSPECIFIED Qualifiers: Qualified Code(s): N17.9 - Acute kidney failure, unspecified (2) COPD exacerbation Code(s): J44.1 - CHRONIC OBSTRUCTIVE PULMONARY DISEASE W (ACUTE) EXACERBATION (3) Hyperkalemia Code(s): E87.5 - HYPERKALEMIA (4) Acute and chronic respiratory failure ([id number]) Code(s): J96.20 - ACUTE AND CHR RESP FAILURE, UNSP W HYPOXIA OR HYPERCAPNIA Qualifiers: Qualified Code(s): J96.21 - Acute and chronic respiratory failure with hypoxia (5) Acute exacerbation of chronic obstructive pulmonary disease (COPD) Code(s): J44.1 - CHRONIC OBSTRUCTIVE PULMONARY DISEASE W (ACUTE) EXACERBATION (6) Acute on chronic diastolic (congestive) heart failure Code(s): I50.33 - ACUTE ON CHRONIC DIASTOLIC (CONGESTIVE) HEART FAILURE (7) Anxiety and depression Code(s): F41.9 - ANXIETY DISORDER, UNSPECIFIED F32.9 - MAJOR DEPRESSIVE DISORDER, SINGLE EPISODE, UNSPECIFIED (8) Cellulitis Code(s): L03.90 - CELLULITIS, UNSPECIFIED (9) Chronic kidney disease (CKD) Code(s): N18.9 - CHRONIC KIDNEY DISEASE, UNSPECIFIED Qualifiers: Qualified Code(s): N18.9 - Chronic kidney disease, unspecified (10) Diastolic CHF Code(s): I50.30 - UNSPECIFIED DIASTOLIC (CONGESTIVE) HEART FAILURE (11) Hyperlipidemia Code(s): E78.5 - HYPERLIPIDEMIA, UNSPECIFIED (12) Hypertension Code(s): I10 - ESSENTIAL (PRIMARY) HYPERTENSION (13) Obesities, morbid Code(s): E66.01 - MORBID (SEVERE) OBESITY DUE TO EXCESS CALORIES Qualifiers: Qualified Code(s): E66.2 - Morbid (severe) obesity with alveolar hypoventilation (14) Respiratory failure with hypoxia and hypercapnia Code(s): J96.91 - RESPIRATORY FAILURE, UNSPECIFIED WITH HYPOXIA J96.92 - RESPIRATORY FAILURE, UNSPECIFIED WITH HYPERCAPNIA Qualifiers: Qualified Code(s): J96.21 - Acute and chronic respiratory failure with hypoxia; J96.22 - Acute and chronic respiratory failure with hypercapnia (15) Shortness of breath Code(s): R06.02 - SHORTNESS OF BREATH (16) Hematoma Code(s): T14.8 - OTHER INJURY OF UNSPECIFIED BODY REGION Visit type - Emergency Visit Emergency Visit: Yes ED Registration Date: 02/18/16 Care time: The patient presented to the Emergency Department on the above date and was hospitalized for further evaluation of their emergent condition. - New Patient This patient is new to me today: No - Critical Care Critical Care patient: No
--- NOTE | 2016-03-16 13:09 | PN ---
Progress Note (short form) - Note Progress Note: Renal Follow up for KARLOS Pt seen and examined at the bedside complains of buttock pain and leg pain sat in chair all night denies sob legs swollen Vital Signs Temperature 98.4 F 03/16/16 10:00 Pulse Rate 88 03/16/16 11:36 Respiratory Rate 20 03/16/16 10:00 Blood Pressure 110/58 03/16/16 10:00 O2 Sat by Pulse Oximetry (%) 93 L 03/16/16 11:36 Intake & Output 03/13/16 03/14/16 03/15/16 03/16/16 23:59 23:59 23:59 23:59 Intake Total 750 300 200 Output Total 1650 1700 950 300 Balance -900 -1400 -950 -100 Weight 317 lb 1.6 oz Gen: NAD CVS: RRR No M/R Lungs: dec BS throughout the lung rey Abd: Soft NT + Mild distension Ext: > 3+ edema, no cyanosis or clubbing CBC, BMP 03/16/16 06:30 03/16/16 06:30 Laboratory Tests 03/16/16 06:30 Calcium 8.0 L Phosphorus 4.2 Magnesium 2.4 Current Medications Acetaminophen (Tylenol -) 650 mg PO Q6H PRN PRN Reason: FEVER OR PAIN Last Admin: 03/16/16 03:34 Dose: 650 mg Acetylcysteine (Mucomyst 20 Oral / Inh Use Only*) 200 mg NEB BID [facility] Last Admin: 03/16/16 11:00 Dose: 200 mg Albuterol Sulfate (Ventolin 0.083% Nebulizer Soln -) 1 amp NEB Q4H PRN PRN Reason: SHORT OF BREATH/WHEEZING Last Admin: 03/12/16 07:18 Dose: 1 amp Albuterol Sulfate (Ventolin 0.083% Nebulizer Soln -) 1 amp NEB QIDR [facility] Last Admin: 03/16/16 07:17 Dose: 1 amp Amlodipine Besylate (Norvasc -) 10 mg PO DAILY [facility] [place] Last Admin: 03/16/16 09:47 Dose: 10 mg Arformoterol Tartrate (Brovana (Restricted To Pulmonology/Resp) -) 1 amp NEB BID [facility] Last Admin: 03/16/16 11:00 Dose: 1 amp Calcitriol (Rocaltrol -) 0.25 mcg PO DAILY [facility] Last Admin: 03/16/16 09:38 Dose: 0.25 mcg Calcium Acetate (Phoslo -) 1,334 mg PO TIDCM [facility] Last Admin: 03/16/16 11:47 Dose: 1,334 mg Clindamycin HCl (Cleocin -) 300 mg PO Q6HPO [facility] Last Admin: 03/16/16 11:47 Dose: 300 mg Docusate Sodium (Colace -) 100 mg PO BID PRN PRN Reason: CONSTIPATION Last Admin: 03/16/16 09:54 Dose: 100 mg Duloxetine HCl (Cymbalta -) 20 mg PO DAILY [facility] [place] Last Admin: 03/16/16 09:39 Dose: 20 mg Epoetin Keith (Procrit -) 20,000 unit SQ MOWEFR [facility] Last Admin: 03/15/16 11:31 Dose: 20,000 unit Hydralazine HCl (Apresoline -) 50 mg PO TID [facility] Last Admin: 03/16/16 06:02 Dose: 50 mg Prednisone (Deltasone -) 10 mg PO DAILY [facility] [place] Last Admin: 03/16/16 09:36 Dose: 10 mg Pregabalin (Lyrica -) 50 mg PO DAILY [facility] [place] Last Admin: 03/16/16 09:36 Dose: 50 mg Tiotropium [place] (Spiriva -) 1 puff IH DAILY [facility] [place] Last Admin: 03/16/16 11:10 Dose: 1 puff Torsemide (Demadex -) 20 mg PO DAILY [facility] [place] Tramadol HCl (Ultram -) 50 mg PO Q12H PRN PRN Reason: PAIN Last Admin: 03/16/16 11:48 Dose: 50 mg A/P 75 year old Gentleman with PMhx of CKD Stage 3 (baseline Cr 1.9), Hx of Nephrolithiasis, Hypertension, COPD, CHF, PVD, Chronic LE lymph edema who was sent into the ED from wound care for increased lethargy and decreased urination for several days with KARLOS with BUN/Cr of 115/7.2 and K of 6.5 #Acute Renal Failure on CKD stage 3 secondary to ATN Renal function overall improved but noted rise in Cr from yesterday to today ? lower bp +/- fever (? recurrent infection) Agree with decreased dose of torsemide as per cardiology D/C Hydralazine to prevent relative hypotension Trend BUN/Cr #Fluid overload/LE edema/Pleural effusions/COPD/RSV Continue Toresemide LEg elevatedion Check weights #Hypocalcemia/Hyperphosphatemia/Secondary Hyperparatyrodism Phoslo to 1334 TID with meals with goal phos < 5.5 continue Calcitriol #Microcytic Anemia Continue Epogen 45536 units MWF Iron saturation was 28% Melvin Johnson DO
--- NOTE | 2016-03-16 13:54 | PN ---
Progress Note, Physician History of Present Illness: patient is not feeling well says he is very sick looks more lethargic legs looking more red oozing increased tolerating nasal cannula - Current Medication List Current Medications: Active Medications Acetaminophen (Tylenol -) 650 mg PO Q6H PRN PRN Reason: FEVER OR PAIN Last Admin: 03/16/16 03:34 Dose: 650 mg Acetylcysteine (Mucomyst 20 Oral / Inh Use Only*) 200 mg NEB BID [facility] Last Admin: 03/16/16 11:00 Dose: 200 mg Albuterol Sulfate (Ventolin 0.083% Nebulizer Soln -) 1 amp NEB Q4H PRN PRN Reason: SHORT OF BREATH/WHEEZING Last Admin: 03/12/16 07:18 Dose: 1 amp Albuterol Sulfate (Ventolin 0.083% Nebulizer Soln -) 1 amp NEB QIDR [facility] Last Admin: 03/16/16 07:17 Dose: 1 amp Amlodipine Besylate (Norvasc -) 10 mg PO DAILY [facility] Last Admin: 03/16/16 09:47 Dose: 10 mg Arformoterol Tartrate (Brovana (Restricted To Pulmonology/Resp) -) 1 amp NEB BID [facility] Last Admin: 03/16/16 11:00 Dose: 1 amp Calcitriol (Rocaltrol -) 0.25 mcg PO DAILY [facility] Last Admin: 03/16/16 09:38 Dose: 0.25 mcg Calcium Acetate (Phoslo -) 1,334 mg PO TIDCM [facility] Last Admin: 03/16/16 11:47 Dose: 1,334 mg Docusate Sodium (Colace -) 100 mg PO BID PRN PRN Reason: CONSTIPATION Last Admin: 03/16/16 09:54 Dose: 100 mg Duloxetine HCl (Cymbalta -) 20 mg PO DAILY [facility] Last Admin: 03/16/16 09:39 Dose: 20 mg Epoetin Keith (Procrit -) 20,000 unit SQ MOWEFR [facility] Last Admin: 03/15/16 11:31 Dose: 20,000 unit Aztreonam 1 gm/ Dextrose 50 mls @ 100 mls/hr IVPB Q8H-IV [facility] Clindamycin Phosphate 300 mg/ (Dextrose) 50 mls @ 104 mls/hr IVPB Q8H-IV [facility] Prednisone (Deltasone -) 10 mg PO DAILY [facility] Last Admin: 03/16/16 09:36 Dose: 10 mg Pregabalin (Lyrica -) 50 mg PO DAILY [facility] Last Admin: 03/16/16 09:36 Dose: 50 mg Tiotropium [place] (Spiriva -) 1 puff IH DAILY [facility] Last Admin: 03/16/16 11:10 Dose: 1 puff Torsemide (Demadex -) 20 mg PO DAILY [facility] Tramadol HCl (Ultram -) 50 mg PO Q12H PRN PRN Reason: PAIN Last Admin: 03/16/16 11:48 Dose: 50 mg - Objective Vital Signs: Vital Signs Temperature 98.4 F 03/16/16 10:00 Pulse Rate 88 03/16/16 11:36 Respiratory Rate 20 03/16/16 10:00 Blood Pressure 110/58 03/16/16 10:00 O2 Sat by Pulse Oximetry (%) 93 L 03/16/16 11:36 Constitutional: Yes: Mild Distress Cardiovascular: Yes: Regular Rate and Rhythm Respiratory: Yes: On Nasal O2, Poor Air Entry Gastrointestinal: Yes: Normal Bowel Sounds, Soft Musculoskeletal: Yes: Other Extremities: Yes: Other (eryhema and driainage) Integumentary: Yes: Erythema (legs have become more erytematous) Neurological: Yes: Alert, Other (somewhat lethargic) Psychiatric: Yes: Alert Labs: CBC, BMP 03/16/16 06:30 03/16/16 06:30 INR, PTT INR 1.12 (0.82-1.09) 02/18/16 13:00 Assessment/Plan 75 year-old man with a PMH of HTN, PVD, COPD, CKD (baseline Cr 1.9), nephrolithiasis, and chronic LE lymphedema. Admitted in acute renal failure. patient is starting to show picture of becoming sicker I am afraid he might become septic Acute on chronic renal failure Hyperkalemia Sepsis s Hypertension Peripheral vascular disease Hypercarbic respiratory failure COPD bilateral cellulitis of the legs rsv lung infection pleural effusion plan continue resp physio continue monitoring physiotherapy stable awaiting for pleural tap on the other side i have started on iv abx will restart aztreonam and clinda
[2016-03-16] MEDS ORDERED: AZTREONAM 1 GM in DEXTROSE 5%-WATER - 50 ML IVPB ONE (14:00)
[2016-03-16] MEDS ORDERED: AZTREONAM 1 GM in DEXTROSE 5%-WATER - 50 ML IVPB SCH (14:00)
--- NOTE | 2016-03-16 16:40 | PN ---
Progress Note, Physician History of Present Illness: Pt's alert. NAD - Current Medication List Current Medications: Active Medications Acetaminophen (Tylenol -) 650 mg PO Q6H PRN PRN Reason: FEVER OR PAIN Last Admin: 03/16/16 03:34 Dose: 650 mg Acetylcysteine (Mucomyst 20 Oral / Inh Use Only*) 200 mg NEB BID [facility] Last Admin: 03/16/16 11:00 Dose: 200 mg Albuterol Sulfate (Ventolin 0.083% Nebulizer Soln -) 1 amp NEB Q4H PRN PRN Reason: SHORT OF BREATH/WHEEZING Last Admin: 03/12/16 07:18 Dose: 1 amp Albuterol Sulfate (Ventolin 0.083% Nebulizer Soln -) 1 amp NEB QIDR [facility] Last Admin: 03/16/16 07:17 Dose: 1 amp Amlodipine Besylate (Norvasc -) 10 mg PO DAILY [facility] Last Admin: 03/16/16 09:47 Dose: 10 mg Arformoterol Tartrate (Brovana (Restricted To Pulmonology/Resp) -) 1 amp NEB BID [facility] Last Admin: 03/16/16 11:00 Dose: 1 amp Calcitriol (Rocaltrol -) 0.25 mcg PO DAILY [facility] Last Admin: 03/16/16 09:38 Dose: 0.25 mcg Calcium Acetate (Phoslo -) 1,334 mg PO TIDCM [facility] Last Admin: 03/16/16 11:47 Dose: 1,334 mg Docusate Sodium (Colace -) 100 mg PO BID PRN PRN Reason: CONSTIPATION Last Admin: 03/16/16 09:54 Dose: 100 mg Duloxetine HCl (Cymbalta -) 20 mg PO DAILY [facility] Last Admin: 03/16/16 09:39 Dose: 20 mg Epoetin Keith (Procrit -) 20,000 unit SQ MOWEFR [facility] Last Admin: 03/15/16 11:31 Dose: 20,000 unit Clindamycin Phosphate 300 mg/ (Dextrose) 50 mls @ 104 mls/hr IVPB Q8H-IV [facility] Aztreonam 0.5 gm/ Dextrose 50 mls @ 100 mls/hr IVPB Q8H-IV [facility] Prednisone (Deltasone -) 10 mg PO DAILY [facility] Last Admin: 03/16/16 09:36 Dose: 10 mg Pregabalin (Lyrica -) 50 mg PO DAILY [facility] Last Admin: 03/16/16 09:36 Dose: 50 mg Tiotropium [place] (Spiriva -) 1 puff IH DAILY [facility] Last Admin: 03/16/16 11:10 Dose: 1 puff Torsemide (Demadex -) 20 mg PO DAILY [facility] Tramadol HCl (Ultram -) 50 mg PO Q12H PRN PRN Reason: PAIN Last Admin: 03/16/16 11:48 Dose: 50 mg - Objective Vital Signs: Vital Signs Temperature 100.6 F H 03/16/16 15:17 Pulse Rate 95 H 03/16/16 15:17 Respiratory Rate 21 03/16/16 15:17 Blood Pressure 119/51 03/16/16 15:17 O2 Sat by Pulse Oximetry (%) 93 L 03/16/16 11:36 Constitutional: Yes: Mild Distress Eyes: No: Sclera Icterus HENT: Yes: Atraumatic Neck: Yes: Supple, Trachea Midline Cardiovascular: Yes: Regular Rate and Rhythm. No: JVD Respiratory: Yes: Diminished (bilateral) Gastrointestinal: Yes: Soft. No: Tenderness Extremities: Yes: Erythema, Other (erythema;lyphedema) Edema: LUE: 4+, RUE: 4+ Neurological: Yes: Alert, Oriented, Unsteady Gait (unable to walk) Labs: CBC, BMP 03/16/16 06:30 03/16/16 06:30 INR, PTT INR 1.12 (0.82-1.09) 02/18/16 13:00 - ....Imaging Chest X-ray: Report Reviewed, Image Reviewed (bibasilar atelectasis/infiltrate fluid left> right) Problem List - Problems (1) COPD exacerbation Code(s): J44.1 - CHRONIC OBSTRUCTIVE PULMONARY DISEASE W (ACUTE) EXACERBATION (2) Acute and chronic respiratory failure ([id number]) Code(s): J96.20 - ACUTE AND CHR RESP FAILURE, UNSP W HYPOXIA OR HYPERCAPNIA Qualifiers: Qualified Code(s): J96.21 - Acute and chronic respiratory failure with hypoxia (3) Acute kidney failure Code(s): N17.9 - ACUTE KIDNEY FAILURE, UNSPECIFIED Qualifiers: Qualified Code(s): N17.9 - Acute kidney failure, unspecified (4) Chronic kidney disease (CKD) Code(s): N18.9 - CHRONIC KIDNEY DISEASE, UNSPECIFIED Qualifiers: Qualified Code(s): N18.9 - Chronic kidney disease, unspecified (5) Cellulitis Code(s): L03.90 - CELLULITIS, UNSPECIFIED (6) Hyperkalemia Code(s): E87.5 - HYPERKALEMIA (7) Arteriosclerotic heart disease (ASHD) Code(s): I25.10 - ATHSCL HEART DISEASE OF [place] CORONARY ARTERY W/O ANG PCTRS (8) Obesities, morbid Code(s): E66.01 - MORBID (SEVERE) OBESITY DUE TO EXCESS CALORIES Qualifiers: Qualified Code(s): E66.2 - Morbid (severe) obesity with alveolar hypoventilation Assessment/Plan T max 100.3 today Cellulitis legs- possible sepsis COPD Acute on chronic hypercapnic respiratory failure-respiratory status stable at present CAD; S/P stents; no chest pain or palpitations. CHF/fluid overload . Pt is s/p right thoracentesis (600 cc) Fluid is transudative Acute Renal Failure Chronic Renal Insufficiency Anemia Plan: Torsemide Steroid taper in progress inhaled bronchodilator NIPPV nightly Monitor blood counts; transfuse PRN Antibiotics per I.D.
[2016-03-16] MEDS ORDERED: PT OWN MED DRAWER 7, Y5N ONE (16:47)
[2016-03-16] MEDS: CLINDAMYCIN IVPB 300 MG in DEXTROSE 5%-WATER - 48 ML IVPB SCH (17:01)
[2016-03-16] MEDS: AZTREONAM 0.5 GM in DEXTROSE 5%-WATER - 50 ML IVPB SCH (17:27)
[2016-03-17] MEDS: AZTREONAM 0.5 GM in DEXTROSE 5%-WATER - 50 ML IVPB SCH ×3 (01:35→17:28)
[2016-03-17] MEDS: CLINDAMYCIN IVPB 300 MG in DEXTROSE 5%-WATER - 48 ML IVPB SCH ×3 (02:04→17:28)
[2016-03-17] MEDS: ALBUTEROL SO4 0.083% IH SOL 2.5 MG/3 ML VIAL.NEB. NEB SCH ×4 (05:14→23:28)
--- NOTE | 2016-03-17 05:54 | CONSULT ---
Consult - text type - Consultation Consultation Note: Patient seen and examined 75 year old man with a history of HTN, COPD on home O2, Chronic combined systolic/diastolic CHF, CKD, JOY, CAD moderate LV systolic dysfunction, h/o PCI with ABDON of RCA 03/2015 and staged PCI of LAD in 04/2015 , now admitted with cellulitis, sepsis, TARYN on CKD and sob - Past Medical History HAT AND CAP SEWER: Yes: Peripheral Neuropathy Cardio/Vascular: Yes: CAD, CHF (diastolic), HTN, Hyperlipdemia Pulmonary: Yes: COPD, O2 Dependent, Sleep Apnea Renal/: Yes: Renal Inusuff, Renal Calculi Dermatology: Yes: Cellulitis (Cellulitis lower extremiites during patient's hospitalization in February) Additional Medical History: Obesity - Past Surgical History Past Surgical History: Yes: None - Smoking History Smoking history: Former smoker - Social History ADL: Independent Home Medications - Allergies Allergies/Adverse Reactions: Allergies Allergy/AdvReac Type Severity Reaction Status Date / Time Penicillins Allergy Verified 02/18/16 11:45 - Home Medications Home Medications: Ambulatory Orders Acetaminophen W/ Codeine #3 [Tylenol # 3 -] 1 tab PO Q6H PRN 02/18/16 Albuterol 0.083% Nebulizer [place] [Ventolin 0.083% Nebulizer Soln -] 1 amp NEB ASDIR PRN 02/18/16 Aspirin [Ecotrin] 81 mg PO DAILY 02/18/16 Duloxetine HCl 20 mg PO DAILY 02/18/16 Furosemide 20 mg PO HS 02/18/16 Furosemide 40 mg PO DAILY 02/18/16 Hydralazine HCl [Apresoline -] 50 mg PO HS 02/18/16 Prasugrel HCl [Effient] 10 mg PO DAILY 02/18/16 Prednisone 5 mg PO DAILY 02/18/16 Pregabalin [Lyrica] 25 mg PO DAILY 02/18/16 - Current Medication List Current Medications: Active Medications Acetaminophen (Tylenol -) 650 mg PO Q6H PRN PRN Reason: FEVER OR PAIN Last Admin: 03/16/16 03:34 Dose: 650 mg Acetylcysteine (Mucomyst 20 Oral / Inh Use Only*) 200 mg NEB BID [facility] Last Admin: 03/16/16 11:00 Dose: 200 mg Albuterol Sulfate (Ventolin 0.083% Nebulizer Soln -) 1 amp NEB Q4H PRN PRN Reason: SHORT OF BREATH/WHEEZING Last Admin: 03/12/16 07:18 Dose: 1 amp Albuterol Sulfate (Ventolin 0.083% Nebulizer Soln -) 1 amp NEB QIDR [facility] Last Admin: 03/16/16 07:17 Dose: 1 amp Amlodipine Besylate (Norvasc -) 10 mg PO DAILY [facility] Last Admin: 03/16/16 09:47 Dose: 10 mg Arformoterol Tartrate (Brovana (Restricted To Pulmonology/Resp) -) 1 amp NEB BID [facility] Last Admin: 03/16/16 11:00 Dose: 1 amp Calcitriol (Rocaltrol -) 0.25 mcg PO DAILY [facility] Last Admin: 03/16/16 09:38 Dose: 0.25 mcg Calcium Acetate (Phoslo -) 1,334 mg PO TIDCM [facility] Last Admin: 03/16/16 11:47 Dose: 1,334 mg Docusate Sodium (Colace -) 100 mg PO BID PRN PRN Reason: CONSTIPATION Last Admin: 03/16/16 09:54 Dose: 100 mg Duloxetine HCl (Cymbalta -) 20 mg PO DAILY [facility] Last Admin: 03/16/16 09:39 Dose: 20 mg Epoetin Keith (Procrit -) 20,000 unit SQ MOWEFR [facility] Last Admin: 03/15/16 11:31 Dose: 20,000 unit Aztreonam 1 gm/ Dextrose 50 mls @ 100 mls/hr IVPB Q8H-IV [facility] Clindamycin Phosphate 300 mg/ (Dextrose) 50 mls @ 104 mls/hr IVPB Q8H-IV [facility] Prednisone (Deltasone -) 10 mg PO DAILY [facility] Last Admin: 03/16/16 09:36 Dose: 10 mg Pregabalin (Lyrica -) 50 mg PO DAILY [facility] Last Admin: 03/16/16 09:36 Dose: 50 mg Tiotropium [place] (Spiriva -) 1 puff IH DAILY [facility] Last Admin: 03/16/16 11:10 Dose: 1 puff Torsemide (Demadex -) 20 mg PO DAILY [facility] Tramadol HCl (Ultram -) 50 mg PO Q12H PRN PRN Reason: PAIN Last Admin: 03/16/16 11:48 Dose: 50 mg - Objective Vital Signs: Vital Signs Temperature 98.4 F 03/16/16 10:00 Pulse Rate 88 03/16/16 11:36 Respiratory Rate 20 03/16/16 10:00 Blood Pressure 110/58 03/16/16 10:00 O2 Sat by Pulse Oximetry (%) 93 L 03/16/16 11:36 Constitutional: Yes: Mild Distress Cardiovascular: Yes: Regular Rate and Rhythm Respiratory: Yes: On Nasal O2, Poor Air Entry Gastrointestinal: Yes: Normal Bowel Sounds, Soft Musculoskeletal: Yes: Other Extremities: Yes: Other (eryhema and driainage) Integumentary: Yes: Erythema (legs have become more erytematous) Neurological: Yes: Alert, Other (somewhat lethargic) Assessment/Plan 75 y/o patient with morbid obesity, CAD, COPD, JOY,CAD,CHF,pleural effusions, KARLOS on CKD, RSV infection now with worsening cellulitis We have been consulted for worsening thrombocytopenia Suspect worsening cellulitis/infection/ given low garde fevers aswell. Restarted clinda/azreonam Unlikely HIT--last exposuree 02/17-02/22 --time frame and clinical scenario make it less likely also with anemia of chronic disease due to CKD. iron studies s/o anemia of chronic disease
[2016-03-17] MEDS: ALBUTEROL SO4 0.083% IH SOL 2.5 MG/3 ML VIAL.NEB. NEB PRN (07:24)
[2016-03-17 08:41] LABS: MCH 26.3 pg (25.7-33.7); MCHC 31.5 g/dl (32.0-35.9); MEAN CELL VOLUME 83.5 fl (80-96); PLATELET COUNT 45 K/MM3 (134-434); RDW 21.8 % (11.9-15.9); WHITE BLOOD COUNT 5.5 K/mm3 (4.0-10.0)
[2016-03-17 09:10] LABS: INR 1.23 (0.82-1.09); PROTHROMBIN TIME (PATIENT) 13.6 SEC (9.98-11.88)
[2016-03-17 09:12] LABS: ACTIVATED PTT 29.7 SECONDS (26.9-34.4)
[2016-03-17 09:28] LABS: FREE T4 1.04 ng/dl (0.76-1.16)
[2016-03-17 09:35] LABS: CALCIUM 8.1 mg/dL (8.5-10.1); CREATININE 3.9 mg/dL (0.7-1.3); MAGNESIUM 2.5 mg/dL (1.8-2.4); PHOSPHOROUS 4.2 mg/dL (2.5-4.9); THYROID STIMULATING HORMONE 1.87 uIU/ml (0.358-3.74)
[2016-03-17] MEDS ORDERED: PT OWN MED DRAWER 7, Y5N ONE (10:31)
[2016-03-17] MEDS: ARFORMOTEROL TARTRATE 15 MCG/2 ML VIAL NEB SCH ×2 (10:35→23:11)
[2016-03-17] MEDS: ACETYLCYSTEINE 20% 200MG/ML 4 ML VIAL *FOR ORAL / INH USE ONLY NEB SCH ×2 (10:35→23:11)
[2016-03-17] MEDS: TORSEMIDE 20 MG TABLET (FP) PO SCH (10:36)
[2016-03-17] MEDS: CALCIUM ACETATE 667 MG CAPSULE (FP) PO SCH ×3 (10:36→17:29)
[2016-03-17] MEDS: amLODIPine BESYLATE 10 MG TABLET (FP) PO SCH (10:36)
[2016-03-17] MEDS: PREGABALIN 50 MG CAPSULE PO SCH (10:36)
[2016-03-17] MEDS: predniSONE 10 MG TABLET (UD) PO SCH (10:36)
[2016-03-17] MEDS: CALCITRIOL 0.25 MCG CAPSULE (FP) PO SCH (10:46)
[2016-03-17] MEDS: DULoxetine HCL 20 MG CAPSULE.DR (FP) PO SCH (10:46)
[2016-03-17] MEDS: TIOTROPIUM BROMIDE 18 MCG/INH (DEVICE W/ 5 CAPSULES) IH SCH (10:46)
[2016-03-17] MEDS: EPOETIN ALFA 20,000 UNIT/1 ML VIAL SQ SCH (10:47)
[2016-03-17] MEDS: DOCUSATE SODIUM 100 MG CAPSULE (FP) PO PRN ×2 (13:54→21:42)
--- NOTE | 2016-03-17 14:15 | PN ---
Progress Note, Physician Chief Complaint: no acute distress Appreciate Heme evaluation - Current Medication List Current Medications: Active Medications Acetaminophen (Tylenol -) 650 mg PO Q6H PRN PRN Reason: FEVER OR PAIN Last Admin: 03/16/16 16:57 Dose: 650 mg Acetylcysteine (Mucomyst 20 Oral / Inh Use Only*) 200 mg NEB BID [facility] Last Admin: 03/17/16 10:35 Dose: 200 mg Albuterol Sulfate (Ventolin 0.083% Nebulizer Soln -) 1 amp NEB Q4H PRN PRN Reason: SHORT OF BREATH/WHEEZING Last Admin: 03/17/16 07:24 Dose: 1 amp Albuterol Sulfate (Ventolin 0.083% Nebulizer Soln -) 1 amp NEB QIDR [facility] Last Admin: 03/17/16 05:14 Dose: 1 amp Amlodipine Besylate (Norvasc -) 10 mg PO DAILY [facility] Last Admin: 03/17/16 10:36 Dose: 10 mg Arformoterol Tartrate (Brovana (Restricted To Pulmonology/Resp) -) 1 amp NEB BID [facility] Last Admin: 03/17/16 10:35 Dose: 1 amp Calcitriol (Rocaltrol -) 0.25 mcg PO DAILY [facility] Last Admin: 03/17/16 10:46 Dose: 0.25 mcg Calcium Acetate (Phoslo -) 1,334 mg PO TIDCM [facility] Last Admin: 03/17/16 12:23 Dose: 1,334 mg Docusate Sodium (Colace -) 100 mg PO BID PRN PRN Reason: CONSTIPATION Last Admin: 03/17/16 13:54 Dose: 100 mg Duloxetine HCl (Cymbalta -) 20 mg PO DAILY [facility] Last Admin: 03/17/16 10:46 Dose: 20 mg Epoetin Keith (Procrit -) 20,000 unit SQ MOWEFR [facility] Last Admin: 03/17/16 10:47 Dose: 20,000 unit Clindamycin Phosphate 300 mg/ (Dextrose) 50 mls @ 104 mls/hr IVPB Q8H-IV [facility] Last Admin: 03/17/16 10:36 Dose: 104 mls/hr Aztreonam 0.5 gm/ Dextrose 50 mls @ 100 mls/hr IVPB Q8H-IV [facility] Last Admin: 12/09/16 10:36 Dose: 100 mls/hr Prednisone (Deltasone -) 10 mg PO DAILY [facility] Last Admin: 03/17/16 10:36 Dose: 10 mg Pregabalin (Lyrica -) 50 mg PO DAILY [facility] Last Admin: 03/17/16 10:36 Dose: 50 mg Tiotropium [place] (Spiriva -) 1 puff IH DAILY [facility] Last Admin: 03/17/16 10:46 Dose: 1 puff Torsemide (Demadex -) 20 mg PO DAILY [facility] Last Admin: 03/17/16 10:36 Dose: 20 mg Tramadol HCl (Ultram -) 50 mg PO Q12H PRN PRN Reason: PAIN Last Admin: 03/16/16 11:48 Dose: 50 mg - Objective Vital Signs: Vital Signs Temperature 98.2 F 03/17/16 10:00 Pulse Rate 79 03/17/16 10:00 Respiratory Rate 18 03/17/16 10:00 Blood Pressure 135/51 03/17/16 10:00 O2 Sat by Pulse Oximetry (%) 96 03/17/16 10:10 Constitutional: Yes: No Distress Cardiovascular: Yes: Regular Rate and Rhythm Respiratory: Yes: Other (decreased breath sounds at bases) Gastrointestinal: Yes: Soft, Abdomen, Obese Edema: Yes Edema: LLE: 2+, RLE: 2+ Neurological: Yes: Alert, Oriented Labs: CBC, BMP 03/17/16 06:30 03/17/16 06:30 INR, PTT INR 1.23 (0.82-1.09) H 03/17/16 06:30 Fibrinogen 547.0 mg/dL (238-498) H 03/17/16 06:30 Laboratory Tests 03/17/16 03/17/16 06:30 06:30 WBC 5.5 Hgb 7.1 L Plt Count 45 L Potassium 4.0 Anion Gap 10 Creatinine 3.9 H Assessment/Plan Assessment/Plan Worsening thrombocytopenia of unclear etiology Acute on chronic renal failure Low grade fevers CAD Chronic diastolic CHF RSV lung infection REC: Heme evaluation in progress -antiplatelet Rx on hold for thoracentesis and dropping platelets Creatinine stable, have lowered torsemide. Renal following. Fever work up as per primary medical team and ID.
--- NOTE | 2016-03-17 14:58 | PN ---
Progress Note (short form) - Note Progress Note: Renal Follow up for KARLOS Pt seen and examined at the bedside no sob, chest pain on BIPAP legs remain red and swollen Vital Signs Temperature 99.8 F H 03/17/16 14:40 Pulse Rate 100 H 03/17/16 14:40 Respiratory Rate 22 03/17/16 14:40 Blood Pressure 123/48 03/17/16 14:40 O2 Sat by Pulse Oximetry (%) 96 03/17/16 14:23 Intake & Output 03/14/16 03/15/16 03/16/16 03/17/16 23:59 23:59 23:59 23:59 Intake Total 300 500 400 Output Total 1700 950 300 425 Balance -1400 -950 200 -25 Gen: NAD CVS: RRR No M/R Lungs: dec BS throughout the lung rey Abd: Soft NT + Mild distension Ext: > 3+ edema, no cyanosis or clubbing CBC, BMP 03/17/16 06:30 03/17/16 06:30 Current Medications Acetaminophen (Tylenol -) 650 mg PO Q6H PRN PRN Reason: FEVER OR PAIN Last Admin: 03/16/16 16:57 Dose: 650 mg Acetylcysteine (Mucomyst 20 Oral / Inh Use Only*) 200 mg NEB BID [facility] Last Admin: 03/17/16 10:35 Dose: 200 mg Albuterol Sulfate (Ventolin 0.083% Nebulizer Soln -) 1 amp NEB Q4H PRN PRN Reason: SHORT OF BREATH/WHEEZING Last Admin: 03/17/16 07:24 Dose: 1 amp Albuterol Sulfate (Ventolin 0.083% Nebulizer Soln -) 1 amp NEB QIDR [facility] Last Admin: 03/17/16 11:55 Dose: Not Given Amlodipine Besylate (Norvasc -) 10 mg PO DAILY [facility] Last Admin: 03/17/16 10:36 Dose: 10 mg Arformoterol Tartrate (Brovana (Restricted To Pulmonology/Resp) -) 1 amp NEB BID [facility] Last Admin: 03/17/16 10:35 Dose: 1 amp Calcitriol (Rocaltrol -) 0.25 mcg PO DAILY [facility] Last Admin: 03/17/16 10:46 Dose: 0.25 mcg Calcium Acetate (Phoslo -) 1,334 mg PO TIDCM [facility] Last Admin: 03/17/16 12:23 Dose: 1,334 mg Docusate Sodium (Colace -) 100 mg PO BID PRN PRN Reason: CONSTIPATION Last Admin: 03/17/16 13:54 Dose: 100 mg Duloxetine HCl (Cymbalta -) 20 mg PO DAILY [facility] Last Admin: 03/17/16 10:46 Dose: 20 mg Epoetin Keith (Procrit -) 20,000 unit SQ MOWEFR [facility] Last Admin: 03/17/16 10:47 Dose: 20,000 unit Clindamycin Phosphate 300 mg/ (Dextrose) 50 mls @ 104 mls/hr IVPB Q8H-IV [facility] Last Admin: 03/17/16 10:36 Dose: 104 mls/hr Aztreonam 0.5 gm/ Dextrose 50 mls @ 100 mls/hr IVPB Q8H-IV [facility] Last Admin: 03/17/16 10:36 Dose: 100 mls/hr Prednisone (Deltasone -) 10 mg PO DAILY [facility] Last Admin: 03/17/16 10:36 Dose: 10 mg Pregabalin (Lyrica -) 50 mg PO DAILY [facility] Last Admin: 03/17/16 10:36 Dose: 50 mg Tiotropium [place] (Spiriva -) 1 puff IH DAILY [facility] Last Admin: 03/17/16 10:46 Dose: 1 puff Torsemide (Demadex -) 20 mg PO DAILY [facility] Last Admin: 03/17/16 10:36 Dose: 20 mg Tramadol HCl (Ultram -) 50 mg PO Q12H PRN PRN Reason: PAIN Last Admin: 03/16/16 11:48 Dose: 50 mg A/P 75 year old Gentleman with PMhx of CKD Stage 3 (baseline Cr 1.9), Hx of Nephrolithiasis, Hypertension, COPD, CHF, PVD, Chronic LE lymph edema who was sent into the ED from wound care for increased lethargy and decreased urination for several days with KALROS with BUN/Cr of 115/7.2 and K of 6.5 #Acute Renal Failure on CKD stage 3 secondary to ATN BUN/cr worse over the last 48 hours but stable continue Toresemide Trend BUN/cr #Fluid overload/LE edema/Pleural effusions/COPD/RSV Continue Toresemide LEg elevatedion Check weights #Hypocalcemia/Hyperphosphatemia/Secondary Hyperparatyrodism Phoslo to 1334 TID with meals with goal phos < 5.5 continue Calcitriol #Microcytic Anemia Continue Epogen 23185 units [facility] Iron saturation was 28% transfuse for Hgb less then 7 #Hypertension BP ok on Amlodipine 10mg Hydralazine is discontinued Melvin Johnson DO
--- NOTE | 2016-03-17 15:06 | PN ---
Physical Exam: SUBJECTIVE: Patient seen and examined at bedside. Feels well. Seen on bed with bipap on. States he has no issues currently. No BM for 5 days he states but also says he hasnt eaten in 6-7 days. Denies N/V, abd pain, CP, SOB. OBJECTIVE: Vital Signs Temperature 99.8 F H 03/17/16 14:40 Pulse Rate 100 H 03/17/16 14:40 Respiratory Rate 22 03/17/16 14:40 Blood Pressure 123/48 03/17/16 14:40 O2 Sat by Pulse Oximetry (%) 96 03/17/16 14:23 GENERAL: The patient is awake, alert, and fully oriented, in no acute distress. HEAD: Normal with no signs of trauma. EYES: sclera anicteric, conjunctiva clear. No ptosis. ENT: moist mucous membranes. NECK: Trachea midline, full range of motion LUNGS: Diminished breath sounds, CTA, no wheezing HEART: Regular rate and rhythm, S1, S2 without murmur, rub or gallop. ABDOMEN: Obese, Soft, nontender, nondistended, normoactive bowel sounds, no guarding, no rebound, no hepatosplenomegaly, no masses. EXTREMITIES: warm, well-perfused, B/L cellulitic changes, B/L LE 3+ pitting edema and alvarado crusted lesions. NEUROLOGICAL: Normal speech, gait not observed. PSYCH: Normal mood, normal affect. SKIN: Warm, dry, normal turgor, skin changes as noted above in extremities. Laboratory Results - last 24 hr 03/17/16 03/17/16 03/17/16 06:30 06:30 06:30 WBC 5.5 RBC 2.71 L Hgb 7.1 L Hct 22.7 L MCV 83.5 MCHC 31.5 L RDW 21.8 H Plt Count 45 L MPV 10.0 INR 1.23 H PTT (Actin FS) 29.7 D Fibrinogen 547.0 H Sodium 139 Potassium 4.0 Chloride 99 Carbon Dioxide 30 Anion Gap 10 BUN 128 H* Creatinine 3.9 H Random Glucose 104 D Calcium 8.1 L Phosphorus 4.2 Magnesium 2.5 H LD Total 177 Globulin Albumin/Globulin Ratio Uwvwg-7-Hhehsxfgl (%) Bbxzd-8-Spqbkamxc (%) Beta Globulins (%) Gamma Globulins (%) M-Mendez % Vitamin B12 TSH 1.87 D Free T4 Ref Test Comments 03/17/16 03/17/16 06:30 06:30 WBC RBC Hgb Hct MCV MCHC RDW Plt Count MPV INR PTT (Actin FS) Fibrinogen Sodium Potassium Chloride Carbon Dioxide Anion Gap BUN Creatinine Random Glucose Calcium Phosphorus Magnesium LD Total Globulin Cancelled Albumin/Globulin Ratio Cancelled Kyqjz-6-Hnzcjazoi (%) Cancelled Tinei-5-Qclcmfnyc (%) Cancelled Beta Globulins (%) Cancelled Gamma Globulins (%) Cancelled M-Mendez % Cancelled Vitamin B12 427 D TSH Free T4 1.04 Ref Test Comments Cancelled Microbiology 03/13/16 18:30 Blood - Peripheral Venous Blood Culture - Preliminary NO GROWTH OBTAINED AFTER 72 HOURS, INCUBATION TO CONTINUE FOR 2 DAYS. 03/13/16 18:30 Blood - Peripheral Venous Blood Culture - Preliminary NO GROWTH OBTAINED AFTER 72 HOURS, INCUBATION TO CONTINUE FOR 2 DAYS. 03/08/16 10:15 Blood - Peripheral Venous Blood Culture - Final NO GROWTH AFTER 5 DAYS INCUBATION 03/08/16 10:15 Blood - Peripheral Venous Blood Culture - Final NO GROWTH AFTER 5 DAYS INCUBATION 03/07/16 15:30 Pleural Fluid Gram Stain - Final 03/07/16 15:30 Pleural Fluid Body Fluid Culture - Final NO GROWTH OF AEROBIC ORGANISMS AFTER 48 HOURS INCUBATION 03/07/16 15:30 Pleural Fluid Anaerobic Culture - Final NO ANAEROBES WERE ISOLATED 03/07/16 15:30 Pleural Fluid AFB Smear Concentration - Final 03/07/16 15:30 Pleural Fluid Mycobacterial Culture - Preliminary 03/07/16 15:30 Pleural Fluid ALANA Preparation - Preliminary 03/07/16 15:30 Pleural Fluid Fungal Culture - Preliminary 02/29/16 17:40 Nasopharyngeal Swab Respiratory Virus Panel - Final 02/25/16 17:30 Blood - Peripheral Venous Blood Culture - Final NO GROWTH AFTER 5 DAYS INCUBATION 02/25/16 17:30 Blood - Peripheral Venous Blood Culture - Final NO GROWTH AFTER 5 DAYS INCUBATION 02/28/16 17:40 Nasopharyngeal Swab Influenza Types A,B Antigen (TONI) - Final 02/28/16 17:40 Nasopharyngeal Swab - Final 02/26/16 06:45 Urine - Urine Clean Catch Urine Culture - Final NO GROWTH OBTAINED 02/18/16 19:15 Blood - Peripheral Venous Blood Culture - Final NO GROWTH AFTER 5 DAYS INCUBATION 02/18/16 19:15 Blood - Peripheral Venous Blood Culture - Final NO GROWTH AFTER 5 DAYS INCUBATION 02/18/16 18:10 Urine - Urine Clean Catch Urine Culture - Final NO GROWTH OBTAINED Active Medications Generic Name Dose Route Start Last Admin Trade Name Freq PRN Reason Stop Dose Admin Acetaminophen 650 mg 03/09/16 16:50 03/16/16 16:57 Tylenol - PO 650 mg Q6H PRN Administration FEVER OR PAIN Acetylcysteine 200 mg 02/26/16 10:00 03/17/16 10:35 Mucomyst 20 Oral / Inh Use Only* NEB 200 mg BID [facility] Administration Albuterol Sulfate 1 amp 03/06/16 16:01 03/17/16 07:24 Ventolin 0.083% Nebulizer Soln - NEB 1 amp Q4H PRN Administration SHORT OF BREATH/WHEEZING Albuterol Sulfate 1 amp 03/06/16 18:00 03/17/16 11:55 Ventolin 0.083% Nebulizer Soln - NEB Not Given QIDR [facility] Amlodipine Besylate 10 mg 03/11/16 08:30 03/17/16 10:36 Norvasc - PO 10 mg DAILY [facility] Administration Arformoterol Tartrate 1 amp 02/23/16 22:00 03/17/16 10:35 Brovana (Restricted To Pulmonology/Resp) - NEB 1 amp BID [facility]E Administration Calcitriol 0.25 mcg 02/24/16 12:45 03/17/16 10:46 Rocaltrol - PO 0.25 mcg DAILY [facility] Administration Calcium Acetate 1,334 mg 03/12/16 12:00 03/17/16 12:23 Phoslo - PO 1,334 mg TIDCM [facility] Administration Docusate Sodium 100 mg 03/10/16 17:34 03/17/16 13:54 Colace - PO 100 mg BID PRN Administration CONSTIPATION Duloxetine HCl 20 mg 02/24/16 10:00 03/17/16 10:46 Cymbalta - PO 20 mg DAILY [facility] Administration Epoetin Keith 20,000 unit 03/15/16 10:00 03/17/16 10:47 Procrit - SQ 20,000 unit MOWEFR [facility] Administration Clindamycin Phosphate 300 mg/ 50 mls @ 104 mls/hr 03/16/16 18:00 03/17/16 10:36 Dextrose IVPB 104 mls/hr Q8H-IV [facility] Administration Aztreonam 0.5 gm/ Dextrose 50 mls @ 100 mls/hr 03/16/16 18:00 03/17/16 10:36 IVPB 100 mls/hr Q8H-IV [facility] Administration Prednisone 10 mg 03/15/16 10:00 03/17/16 10:36 Deltasone - PO 10 mg DAILY [facility] Administration Pregabalin 50 mg 03/14/16 10:00 03/17/16 10:36 Lyrica - PO 50 mg DAILY [facility] Administration Tiotropium [place] 1 puff 02/22/16 11:15 03/17/16 10:46 Spiriva - IH 1 puff DAILY [facility] Administration Torsemide 20 mg 03/17/16 10:00 03/17/16 10:36 Demadex - PO 20 mg DAILY [facility] Administration Tramadol HCl 50 mg 03/16/16 11:28 03/16/16 11:48 Ultram - PO 50 mg Q12H PRN Administration PAIN ASSESSMENT/PLAN: 75 year-old man with a PMH of HTN, PVD, COPD, CKD (baseline Cr 1.9), nephrolithiasis, and chronic LE lymphedema. Admitted for acute renal failure ( hyperkalemia) and respiratory distress. # Acute on chronic renal failure -limit fluid intake to 1L per day due to SOB. -128/3.9 today (baseline 1.8-1.9) -c/w torsemide 20 mg po qd # Acute COPD exacerbation with hypercapnic respiratory failure -Used bipap last night -SOB improving -brovana, albuterol neb q4h PRN, albuterol neb standing qid -prednisone 10 mg. Last day today. -bipap use at night instructed #SOB -improving -Resp virus panel - RSV positive -diuresis with torsemide 40 mg po qd -s/p R thoracentesis. 800 cc fluid removed. -fluid analysis: WBC 232, RBC: 1940, total protein: 2.184, LDH: 91.591, glucose: 215.755, amylase 8.508. -BiPap use at night. -thoracentesis now on L side - held ASA and prasugrel (will hold for 5 days total before thoracentesis) -today is day 4 off asa and prasugrel #Fevers -Secondary to infected pleural effusion vs cellulitis -tylenol 650 mg PO q6h PRN fever #Cellulitis of B/L LE -improving -clindamycin 300 mg IV q8 -aztreonam 0.5 g IV q8 # Anemia, microcytic -Anemia of chronic disease secondary to CKD, -Hgb 7.1 (s/p 2 unit PRBC this admission); -Transfuse if Hgb <7. -ASA held due to drop in Hgb -resume when Hgb higher & stable -Epoetin 20,000 units sq 3 times a week MWF # HTN -hydralazine stopped due to possible renal hypoperfusion with increased creatinine now. -goal systolic BP 120-140 -norvasc 10 mg po qd #. CHF (diastolic) -torsemide decreased to 20 mg qd -Causing his LE edema most likely -will get B/L LE duplex to r/o PE # Hx of Depression -c/w cymbalta 20mg #Neuropathy -lyrica 50 mg PO qd # CAD -prasugrel 10 mg PO qd, on hold for now for thoracentesis -contimue prasugrel until 04/2016 #. FEN -hypocalcemia -c/w calcitriol - f/u BMP # Dispo: monitor on floors. Continue PT. L thoracentesis for Sunday. Problem List - Problems (1) Acute kidney failure Code(s): N17.9 - ACUTE KIDNEY FAILURE, UNSPECIFIED Qualifiers: Qualified Code(s): N17.9 - Acute kidney failure, unspecified (2) COPD exacerbation Code(s): J44.1 - CHRONIC OBSTRUCTIVE PULMONARY DISEASE W (ACUTE) EXACERBATION (3) Hyperkalemia Code(s): E87.5 - HYPERKALEMIA (4) Acute and chronic respiratory failure ([id number]) Code(s): J96.20 - ACUTE AND CHR RESP FAILURE, UNSP W HYPOXIA OR HYPERCAPNIA Qualifiers: Qualified Code(s): J96.21 - Acute and chronic respiratory failure with hypoxia (5) Acute exacerbation of chronic obstructive pulmonary disease (COPD) Code(s): J44.1 - CHRONIC OBSTRUCTIVE PULMONARY DISEASE W (ACUTE) EXACERBATION (6) Acute on chronic diastolic (congestive) heart failure Code(s): I50.33 - ACUTE ON CHRONIC DIASTOLIC (CONGESTIVE) HEART FAILURE (7) Anxiety and depression Code(s): F41.9 - ANXIETY DISORDER, UNSPECIFIED F32.9 - MAJOR DEPRESSIVE DISORDER, SINGLE EPISODE, UNSPECIFIED (8) Cellulitis Code(s): L03.90 - CELLULITIS, UNSPECIFIED (9) Chronic kidney disease (CKD) Code(s): N18.9 - CHRONIC KIDNEY DISEASE, UNSPECIFIED Qualifiers: Qualified Code(s): N18.9 - Chronic kidney disease, unspecified (10) Diastolic CHF Code(s): I50.30 - UNSPECIFIED DIASTOLIC (CONGESTIVE) HEART FAILURE (11) Hyperlipidemia Code(s): E78.5 - HYPERLIPIDEMIA, UNSPECIFIED (12) Hypertension Code(s): I10 - ESSENTIAL (PRIMARY) HYPERTENSION (13) Obesities, morbid Code(s): E66.01 - MORBID (SEVERE) OBESITY DUE TO EXCESS CALORIES Qualifiers: Qualified Code(s): E66.2 - Morbid (severe) obesity with alveolar hypoventilation (14) Respiratory failure with hypoxia and hypercapnia Code(s): J96.91 - RESPIRATORY FAILURE, UNSPECIFIED WITH HYPOXIA J96.92 - RESPIRATORY FAILURE, UNSPECIFIED WITH HYPERCAPNIA Qualifiers: Qualified Code(s): J96.21 - Acute and chronic respiratory failure with hypoxia; J96.22 - Acute and chronic respiratory failure with hypercapnia (15) Shortness of breath Code(s): R06.02 - SHORTNESS OF BREATH (16) Hematoma Code(s): T14.8 - OTHER INJURY OF UNSPECIFIED BODY REGION Visit type - Emergency Visit Emergency Visit: Yes ED Registration Date: 02/18/16 Care time: The patient presented to the Emergency Department on the above date and was hospitalized for further evaluation of their emergent condition. - New Patient This patient is new to me today: No - Critical Care Critical Care patient: No
--- NOTE | 2016-03-17 15:15 | PN ---
Progress Note, Physician History of Present Illness: patient looking better than yesterday says he feels better than yesterday flushed face still very weak feeling resp ohara tolerating nasal cannula - Current Medication List Current Medications: Active Medications Acetaminophen (Tylenol -) 650 mg PO Q6H PRN PRN Reason: FEVER OR PAIN Last Admin: 03/16/16 16:57 Dose: 650 mg Acetylcysteine (Mucomyst 20 Oral / Inh Use Only*) 200 mg NEB BID [facility] Last Admin: 03/17/16 10:35 Dose: 200 mg Albuterol Sulfate (Ventolin 0.083% Nebulizer Soln -) 1 amp NEB Q4H PRN PRN Reason: SHORT OF BREATH/WHEEZING Last Admin: 03/17/16 07:24 Dose: 1 amp Albuterol Sulfate (Ventolin 0.083% Nebulizer Soln -) 1 amp NEB QIDR [facility] Last Admin: 03/17/16 11:55 Dose: Not Given Amlodipine Besylate (Norvasc -) 10 mg PO DAILY [facility] Last Admin: 03/17/16 10:36 Dose: 10 mg Arformoterol Tartrate (Brovana (Restricted To Pulmonology/Resp) -) 1 amp NEB BID [facility] Last Admin: 03/17/16 10:35 Dose: 1 amp Calcitriol (Rocaltrol -) 0.25 mcg PO DAILY [facility] Last Admin: 03/17/16 10:46 Dose: 0.25 mcg Calcium Acetate (Phoslo -) 1,334 mg PO TIDCM [facility] Last Admin: 03/17/16 12:23 Dose: 1,334 mg Docusate Sodium (Colace -) 100 mg PO BID PRN PRN Reason: CONSTIPATION Last Admin: 03/17/16 13:54 Dose: 100 mg Duloxetine HCl (Cymbalta -) 20 mg PO DAILY [facility] Last Admin: 03/17/16 10:46 Dose: 20 mg Epoetin Keith (Procrit -) 20,000 unit SQ MOWEFR [facility] Last Admin: 03/17/16 10:47 Dose: 20,000 unit Clindamycin Phosphate 300 mg/ (Dextrose) 50 mls @ 104 mls/hr IVPB Q8H-IV [facility] Last Admin: 03/17/16 10:36 Dose: 104 mls/hr Aztreonam 0.5 gm/ Dextrose 50 mls @ 100 mls/hr IVPB Q8H-IV [facility] Last Admin: 03/17/16 10:36 Dose: 100 mls/hr Pregabalin (Lyrica -) 50 mg PO DAILY [facility] Last Admin: 03/17/16 10:36 Dose: 50 mg Tiotropium [place] (Spiriva -) 1 puff IH DAILY [facility] Last Admin: 03/17/16 10:46 Dose: 1 puff Torsemide (Demadex -) 20 mg PO DAILY [facility] Last Admin: 03/17/16 10:36 Dose: 20 mg Tramadol HCl (Ultram -) 50 mg PO Q12H PRN PRN Reason: PAIN Last Admin: 03/16/16 11:48 Dose: 50 mg - Objective Vital Signs: Vital Signs Temperature 99.8 F H 03/17/16 14:40 Pulse Rate 100 H 03/17/16 14:40 Respiratory Rate 22 03/17/16 14:40 Blood Pressure 123/48 03/17/16 14:40 O2 Sat by Pulse Oximetry (%) 96 03/17/16 14:23 Constitutional: Yes: Calm, Mild Distress Cardiovascular: Yes: Regular Rate and Rhythm Respiratory: Yes: Regular, Poor Air Entry, Rhonchi Gastrointestinal: Yes: Normal Bowel Sounds, Soft Musculoskeletal: Yes: Other Extremities: Yes: Erythema (bilateral ext) Edema: LLE: 2+, RLE: 2+ Integumentary: Yes: Erythema, Other (venous insufficency) Wound/Incision: Yes: Other Neurological: Yes: Alert, Oriented Psychiatric: Yes: Alert Labs: CBC, BMP 03/17/16 06:30 03/17/16 06:30 INR, PTT INR 1.23 (0.82-1.09) H 03/17/16 06:30 Fibrinogen 547.0 mg/dL (238-498) H 03/17/16 06:30 Assessment/Plan 75 year-old man with a PMH of HTN, PVD, COPD, CKD (baseline Cr 1.9), nephrolithiasis, and chronic LE lymphedema. Admitted in acute renal failure. patient is starting to show picture of becoming sicker I am afraid he might become septic Acute on chronic renal failure Hyperkalemia Sepsis s Hypertension Peripheral vascular disease Hypercarbic respiratory failure COPD bilateral cellulitis of the legs rsv lung infection pleural effusion plan patient doing better today cellulitis slightly better resp tolerating nasal cannula continue to monitor closely
[2016-03-17] MEDS ORDERED: methylPREDNISolone NA SUCC 40 MG/1 ML VIAL IVPB ONE (17:38)
--- NOTE | 2016-03-17 17:42 | PN ---
Progress Note, Physician History of Present Illness: Pt's more dyspneic this evening; he's on BIPAP. Prednisone dc'd on 03/15 - Current Medication List Current Medications: Active Medications Acetaminophen (Tylenol -) 650 mg PO Q6H PRN PRN Reason: FEVER OR PAIN Last Admin: 03/16/16 16:57 Dose: 650 mg Acetylcysteine (Mucomyst 20 Oral / Inh Use Only*) 200 mg NEB BID [facility] Last Admin: 03/17/16 10:35 Dose: 200 mg Albuterol Sulfate (Ventolin 0.083% Nebulizer Soln -) 1 amp NEB Q4H PRN PRN Reason: SHORT OF BREATH/WHEEZING Last Admin: 03/17/16 07:24 Dose: 1 amp Albuterol Sulfate (Ventolin 0.083% Nebulizer Soln -) 1 amp NEB QIDR [facility] Last Admin: 03/17/16 11:55 Dose: Not Given Amlodipine Besylate (Norvasc -) 10 mg PO DAILY [facility] Last Admin: 03/17/16 10:36 Dose: 10 mg Arformoterol Tartrate (Brovana (Restricted To Pulmonology/Resp) -) 1 amp NEB BID [facility] Last Admin: 03/17/16 10:35 Dose: 1 amp Calcitriol (Rocaltrol -) 0.25 mcg PO DAILY [facility] Last Admin: 03/17/16 10:46 Dose: 0.25 mcg Calcium Acetate (Phoslo -) 1,334 mg PO TIDCM [facility] Last Admin: 03/17/16 17:29 Dose: 1,334 mg Docusate Sodium (Colace -) 100 mg PO BID PRN PRN Reason: CONSTIPATION Last Admin: 03/17/16 13:54 Dose: 100 mg Duloxetine HCl (Cymbalta -) 20 mg PO DAILY [facility] Last Admin: 03/17/16 10:46 Dose: 20 mg Epoetin Keith (Procrit -) 20,000 unit SQ [facility]OW[facility] Last Admin: 03/17/16 10:47 Dose: 20,000 unit Clindamycin Phosphate 300 mg/ (Dextrose) 50 mls @ 104 mls/hr IVPB Q8H-IV [facility] Last Admin: 03/17/16 17:28 Dose: 104 mls/hr Aztreonam 0.5 gm/ Dextrose 50 mls @ 100 mls/hr IVPB Q8H-IV [facility] Last Admin: 03/17/16 17:28 Dose: 100 mls/hr Methylprednisolone Sodium Succinate (Solu-Medrol -) 40 mg IVPB ONCE ONE Stop: 03/17/16 17:39 Prednisone (Deltasone -) 20 mg PO DAILY [facility] Pregabalin (Lyrica -) 50 mg PO DAILY [facility] Last Admin: 03/17/16 10:36 Dose: 50 mg Tiotropium [place] (Spiriva -) 1 puff IH DAILY [facility] Last Admin: 03/17/16 10:46 Dose: 1 puff Torsemide (Demadex -) 20 mg PO DAILY [facility] Last Admin: 03/17/16 10:36 Dose: 20 mg Tramadol HCl (Ultram -) 50 mg PO Q12H PRN PRN Reason: PAIN Last Admin: 03/16/16 11:48 Dose: 50 mg - Objective Vital Signs: Vital Signs Temperature 98.9 F 03/17/16 16:20 Pulse Rate 98 H 03/17/16 16:20 Respiratory Rate 22 03/17/16 16:20 Blood Pressure 140/54 03/17/16 16:20 O2 Sat by Pulse Oximetry (%) 96 03/17/16 14:23 Constitutional: Yes: Moderate Distress Eyes: No: Sclera Icterus HENT: Yes: Atraumatic, Normocephalic Neck: Yes: Supple, Trachea Midline Cardiovascular: No: JVD Respiratory: Yes: Regular, Diminished (b ilateral) Extremities: Yes: Erythema Edema: Yes Peripheral Pulses: Left Femoral: 4+, Right Femoral: 4+ Neurological: Yes: Alert, Oriented Labs: CBC, BMP 03/17/16 06:30 03/17/16 06:30 INR, PTT INR 1.23 (0.82-1.09) H 03/17/16 06:30 Fibrinogen 547.0 mg/dL (238-498) H 03/17/16 06:30 Problem List - Problems (1) COPD exacerbation Code(s): J44.1 - CHRONIC OBSTRUCTIVE PULMONARY DISEASE W (ACUTE) EXACERBATION (2) Acute and chronic respiratory failure (cyqkz-xi-cwhqoqs) Code(s): J96.20 - ACUTE AND CHR RESP FAILURE, UNSP W HYPOXIA OR HYPERCAPNIA Qualifiers: Qualified Code(s): J96.21 - Acute and chronic respiratory failure with hypoxia (3) Acute kidney failure Code(s): N17.9 - ACUTE KIDNEY FAILURE, UNSPECIFIED Qualifiers: Qualified Code(s): N17.9 - Acute kidney failure, unspecified (4) Chronic kidney disease (CKD) Code(s): N18.9 - CHRONIC KIDNEY DISEASE, UNSPECIFIED Qualifiers: Qualified Code(s): N18.9 - Chronic kidney disease, unspecified (5) Cellulitis Code(s): L03.90 - CELLULITIS, UNSPECIFIED (6) Hyperkalemia Code(s): E87.5 - HYPERKALEMIA (7) Arteriosclerotic heart disease (ASHD) Code(s): I25.10 - ATHSCL HEART DISEASE OF [place] CORONARY ARTERY W/O ANG PCTRS (8) Obesities, morbid Code(s): E66.01 - MORBID (SEVERE) OBESITY DUE TO EXCESS CALORIES Qualifiers: Qualified Code(s): E66.2 - Morbid (severe) obesity with alveolar hypoventilation Assessment/Plan T max 99.8 today Cellulitis legs- possible sepsis COPD Acute on chronic hypercapnic respiratory failure-alicia dyspnei-related to drop in steroid dose? CAD; S/P stents; no chest pain or palpitations. CHF/fluid overload . Pt is s/p right thoracentesis (600 cc) Fluid is transudative Acute Renal Failure Chronic Renal Insufficiency Anemia Plan: Torsemide Solumedrol 40 mg IV now. Prednisone 20 mg daily inhaled bronchodilator NIPPV nightly Monitor blood counts; transfuse PRN Antibiotics per I.D. CXR in AM
--- NOTE | 2016-03-17 18:35 | PN ---
Teaching Attending Note Name of Resident: Freddie Strickland ATTENDING PHYSICIAN STATEMENT I saw and evaluated the patient. I reviewed the resident's note and discussed the case with the resident. I agree with the resident's findings and plan as documented. SUBJECTIVE: Lying in Bed on Bipap. looking better than yesterday. no fever or chills, no shortness of breath. has no new complains. OBJECTIVE: Vital Signs Temperature 98.9 F 03/17/16 16:20 Pulse Rate 98 H 03/17/16 16:20 Respiratory Rate 22 03/17/16 16:20 Blood Pressure 140/54 03/17/16 16:20 O2 Sat by Pulse Oximetry (%) 96 03/17/16 14:23 GENERAL: The patient is awake, alert, and fully oriented, in no acute distress. HEAD: Normal with no signs of trauma. EYES: sclera anicteric, conjunctiva clear. ENT: moist mucous membranes. NECK: Trachea midline, full range of motion LUNGS: Diminished breath sounds BL, decreased air entery bl, no wheezing, HEART: Regular rate and rhythm, S1, S2 without murmur, rub or gallop. ABDOMEN: Soft, nontender, nondistended, normoactive bowel sounds, large abdomen , no masses are appreciated. EXTREMITIES: warm, B/L lymphedema, B/L LE 3+ pitting edema NEUROLOGICAL: Normal speech, gait not observed. PSYCH: Normal mood, normal affect. SKIN: Warm, dry, normal turgor, skin changes as noted above in extremities. CBCD WBC 5.5 K/mm3 (4.0-10.0) 03/17/16 06:30 RBC 2.71 M/mm3 (4.00-5.60) L 03/17/16 06:30 Hgb 7.1 GM/dL (11.7-16.9) L 03/17/16 06:30 Hct 22.7 % (35.4-49) L 03/17/16 06:30 MCV 83.5 fl (80-96) 03/17/16 06:30 MCHC 31.5 g/dl (32.0-35.9) L 03/17/16 06:30 RDW 21.8 % (11.9-15.9) H 03/17/16 06:30 Plt Count 45 K/MM3 (134-434) L 03/17/16 06:30 MPV 10.0 fl (7.5-11.1) 03/17/16 06:30 CMP Sodium 139 mmol/L (136-145) 03/17/16 06:30 Potassium 4.0 mmol/L (3.5-5.1) 03/17/16 06:30 Chloride 99 mmol/L (98-107) 03/17/16 06:30 Carbon Dioxide 30 mmol/L (21-32) 03/17/16 06:30 Anion Gap 10 (8-16) 03/17/16 06:30 BUN 128 mg/dL (7-18) H* 03/17/16 06:30 Creatinine 3.9 mg/dL (0.7-1.3) H 03/17/16 06:30 Creat Clearance w eGFR 16.70 (>60) 03/06/16 07:30 Random Glucose 104 mg/dL (74-106) D 03/17/16 06:30 Calcium 8.1 mg/dL (8.5-10.1) L 03/17/16 06:30 Total Bilirubin 0.7 mg/dL (0.2-1.0) D 03/06/16 07:30 AST 14 U/L (15-37) L D 03/06/16 07:30 ALT 35 U/L (12-78) 03/06/16 07:30 Alkaline Phosphatase 57 U/L (45-117) 03/06/16 07:30 Total Protein 6.2 g/dl (6.4-8.2) L 03/06/16 07:30 Albumin 3.3 g/dl (3.4-5.0) L 03/06/16 07:30 CARDIAC ENZYMES Creatine Kinase 76 IU/L (39-308) 02/19/16 05:30 Troponin I < 0.02 ng/ml (0.015-0.045) 02/19/16 21:50 Current Medications Generic Name Dose Route Start Last Admin Trade Name Freq PRN Reason Stop Dose Admin Acetaminophen 650 mg 03/09/16 16:50 03/16/16 16:57 Tylenol - PO 650 mg Q6H PRN Administration FEVER OR PAIN Acetylcysteine 200 mg 02/26/16 10:00 03/17/16 10:35 Mucomyst 20 Oral / Inh Use Only* NEB 200 mg BID LESLEE Administration Albuterol Sulfate 1 amp 03/06/16 16:01 03/17/16 07:24 Ventolin 0.083% Nebulizer Soln - NEB 1 amp Q4H PRN Administration SHORT OF BREATH/WHEEZING Albuterol Sulfate 1 amp 03/06/16 18:00 03/17/16 11:55 Ventolin 0.083% Nebulizer Soln - NEB Not Given QIDR LESLEE Amlodipine Besylate 10 mg 03/11/16 08:30 03/17/16 10:36 Norvasc - PO 10 mg DAILY LESLEE Administration Arformoterol Tartrate 1 amp 02/23/16 22:00 03/17/16 10:35 Brovana (Restricted To Pulmonology/Resp) - NEB 1 amp BID LESLEE Administration Calcitriol 0.25 mcg 02/24/16 12:45 03/17/16 10:46 Rocaltrol - PO 0.25 mcg DAILY LESLEE Administration Calcium Acetate 1,334 mg 03/12/16 12:00 03/17/16 17:29 Phoslo - PO 1,334 mg TIDCM LESLEE Administration Docusate Sodium 100 mg 03/10/16 17:34 03/17/16 13:54 Colace - PO 100 mg BID PRN Administration CONSTIPATION Duloxetine HCl 20 mg 02/24/16 10:00 03/17/16 10:46 Cymbalta - PO 20 mg DAILY LESLEE Administration Epoetin Keith 20,000 unit 03/15/16 10:00 03/17/16 10:47 Procrit - SQ 20,000 unit MOWEFR LESLEE Administration Clindamycin Phosphate 300 mg/ 50 mls @ 104 mls/hr 03/16/16 18:00 03/17/16 17:28 Dextrose IVPB 104 mls/hr Q8H-IV LESLEE Administration Aztreonam 0.5 gm/ Dextrose 50 mls @ 100 mls/hr 03/16/16 18:00 03/17/16 17:28 IVPB 100 mls/hr Q8H-IV LESLEE Administration Prednisone 20 mg 03/18/16 10:00 Deltasone - PO DAILY LESLEE Pregabalin 50 mg 03/14/16 10:00 03/17/16 10:36 Lyrica - PO 50 mg DAILY LESLEE Administration Tiotropium [place] 1 puff 02/22/16 11:15 12/09/16 10:46 Spiriva - IH 1 puff DAILY LESLEE Administration Torsemide 20 mg 03/17/16 10:00 03/17/16 10:36 Demadex - PO 20 mg DAILY LESLEE Administration Tramadol HCl 50 mg 03/16/16 11:28 03/16/16 11:48 Ultram - PO 50 mg Q12H PRN Administration PAIN Medication Instructions Recorded Acetaminophen W/ Codeine #3 1 tab PO Q6H PRN 02/18/16 [Tylenol # 3 -] Albuterol 0.083% Nebulizer Soni 1 amp NEB ASDIR PRN 02/18/16 [Ventolin 0.083% Nebulizer Soln -] Aspirin [Ecotrin] 81 mg PO DAILY 02/18/16 Duloxetine HCl 20 mg PO DAILY 02/18/16 Furosemide 20 mg PO HS 02/18/16 Furosemide 40 mg PO DAILY 02/18/16 Hydralazine HCl [Apresoline -] 50 mg PO HS 02/18/16 Prasugrel HCl [Effient] 10 mg PO DAILY 02/18/16 Prednisone 5 mg PO DAILY 02/18/16 Pregabalin [Lyrica] 25 mg PO DAILY 02/18/16 ASSESSMENT AND PLAN: 75 year-old man with a PMHx of HTN, PVD, COPD, CKD (baseline Cr 1.8), nephrolithiasis, D CHF , CAD s/p stenting in 03/23 and chronic LE lymphedema. presented with SOB and was found to have acute hypercapnic resp failure with acute renal failure . # Acute hypercapnic respiratory failure due to acute exacerbation of COPD. on Bipap continue, Prednisone 20mg po daily continue with taper , nebuliazer tx; mucomyst. On NC. # Acute on chronic diastolic heart failure on Demadex 20mg since patient kidney function is deteriorating, s/p IV Lasix ; nephrology and cardiology on the case. # Acute bilateral pleural effusions s/p Thoracocentensis by IR on the right side , Plan for the left side thoracentesis by IR. continue Prednisone to taper, Spiriva, BiPAP, Brovana, Acetylcysteine nebulizers, Albuterol nebulizers, Torsemide # s/p Sepsis secondary to cellulitis of legs continuous with swelling of lower extremities on po meds,discussed with ID will switch to IV Clindamycin. # KARLOS on stage 3 CKD;creatinine stable ,on Calcitriol and Phoslo as per Nephrology continue # Microcytic anemia secondary to CKD on Epogen continue # HTN continue Norvasc, Hydralazine, Torsemide # CAD, history of stent Aspirin, Effient on hold for thoracentesis; Not on beta-regine secondary to COPD; Not on ACEI secondary to KARLOS # Peripheral neuropathy continue Lyrica # Hx of Depression continue Cymbalta DVt Px: Effient on hold for now due patient will be going for left Thoracentesis on Sunday
--- NOTE | 2016-03-17 22:19 | PN ---
Progress Note (short form) - Note Progress Note: Patient seen and examined feels better Last Vital Signs Temp Pulse Resp BP Pulse Ox 97.5 F L 78 20 154/69 93 L 03/18/16 05:52 03/18/16 05:52 03/18/16 05:52 03/18/16 05:52 03/17/16 23:29 Cor: RSR, No murmurs, No gallops Lungs: decreased at bases Abd: Soft, Normal bowel sounds, No organomegaly Ext: cellulitis/4= venous stasis Abnormal Lab Results 03/17/16 03/17/16 03/17/16 06:30 06:30 06:30 RBC 2.71 L Hgb 7.1 L Hct 22.7 L MCHC 31.5 L RDW 21.8 H Plt Count 45 L INR 1.23 H Fibrinogen 547.0 H BUN 128 H* Creatinine 3.9 H Calcium 8.1 L Magnesium 2.5 H Current Medications Acetaminophen (Tylenol -) 650 mg PO Q6H PRN PRN Reason: FEVER OR PAIN Last Admin: 03/16/16 16:57 Dose: 650 mg Acetylcysteine (Mucomyst 20 Oral / Inh Use Only*) 200 mg NEB BID [facility] Last Admin: 03/17/16 23:11 Dose: 200 mg Albuterol Sulfate (Ventolin 0.083% Nebulizer Soln -) 1 amp NEB Q4H PRN PRN Reason: SHORT OF BREATH/WHEEZING Last Admin: 03/17/16 07:24 Dose: 1 amp Albuterol Sulfate (Ventolin 0.083% Nebulizer Soln -) 1 amp NEB QIDR [facility] Last Admin: 03/18/16 05:58 Dose: 1 amp Amlodipine Besylate (Norvasc -) 10 mg PO DAILY [facility] Last Admin: 03/17/16 10:36 Dose: 10 mg Arformoterol Tartrate (Brovana (Restricted To Pulmonology/Resp) -) 1 amp NEB BID [facility] Last Admin: 03/17/16 23:11 Dose: 1 amp Calcitriol (Rocaltrol -) 0.25 mcg PO DAILY [facility] Last Admin: 03/17/16 10:46 Dose: 0.25 mcg Calcium Acetate (Phoslo -) 1,334 mg PO TIDCM [facility] Last Admin: 03/17/16 17:29 Dose: 1,334 mg Docusate Sodium (Colace -) 100 mg PO BID PRN PRN Reason: CONSTIPATION Last Admin: 03/17/16 21:42 Dose: 100 mg Duloxetine HCl (Cymbalta -) 20 mg PO DAILY [facility] Last Admin: 03/17/16 10:46 Dose: 20 mg Epoetin Keith (Procrit -) 20,000 unit SQ MOWEFR [facility] Last Admin: 03/17/16 10:47 Dose: 20,000 unit Clindamycin Phosphate 300 mg/ (Dextrose) 50 mls @ 104 mls/hr IVPB Q8H-IV [facility] Last Admin: 03/18/16 01:40 Dose: 104 mls/hr Aztreonam 0.5 gm/ Dextrose 50 mls @ 100 mls/hr IVPB Q8H-IV [facility] Last Admin: 03/18/16 02:14 Dose: 100 mls/hr Prednisone (Deltasone -) 20 mg PO DAILY [facility] Pregabalin (Lyrica -) 50 mg PO DAILY [facility] Last Admin: 03/17/16 10:36 Dose: 50 mg Tiotropium [place] (Spiriva -) 1 puff IH DAILY [facility] Last Admin: 03/17/16 10:46 Dose: 1 puff Torsemide (Demadex -) 20 mg PO DAILY [facility] Last Admin: 03/17/16 10:36 Dose: 20 mg Tramadol HCl (Ultram -) 50 mg PO Q12H PRN PRN Reason: PAIN Last Admin: 03/16/16 11:48 Dose: 50 mg a/P 75 y/o patient with morbid obesity, CAD, COPD, CHF,pleural effusions, KARLOS on CKD, RSV infection now with worsening cellulitis s/p thoracentesis 03/07 We have been consulted for worsening thrombocytopenia Suspect worsening cellulitis/infection/ given low garde fevers aswell. Unlikely HIT--last exposuree 02/17-02/22 --time frame and clinical scenario make it less likely monitor --antiplatelets on hold also with anemia of chronic disease due to CKD. iron studies s/o anemia of chronic disease transfuse PRBCs for hgb <7 on procrit
[2016-03-18] MEDS: CLINDAMYCIN IVPB 300 MG in DEXTROSE 5%-WATER - 48 ML IVPB SCH ×3 (01:40→18:06)
[2016-03-18] MEDS: AZTREONAM 0.5 GM in DEXTROSE 5%-WATER - 50 ML IVPB SCH ×3 (02:14→18:06)
[2016-03-18] MEDS: ALBUTEROL SO4 0.083% IH SOL 2.5 MG/3 ML VIAL.NEB. NEB SCH ×3 (05:58→18:46)
[2016-03-18 08:00] LABS: MCH 26.2 pg (25.7-33.7); MCHC 31.5 g/dl (32.0-35.9); MEAN CELL VOLUME 83.1 fl (80-96); MEAN PLT VOLUME 9.8 fl (7.5-11.1); PLATELET COUNT 42 K/MM3 (134-434); RDW 21.7 % (11.9-15.9)
[2016-03-18] MEDS: DOCUSATE SODIUM 100 MG CAPSULE (FP) PO PRN (08:49)
[2016-03-18] MEDS: CALCIUM ACETATE 667 MG CAPSULE (FP) PO SCH ×3 (08:49→18:05)
[2016-03-18 08:51] LABS: CALCIUM 7.6 mg/dL (8.5-10.1); MAGNESIUM 2.6 mg/dL (1.8-2.4)
[2016-03-18 08:55] LABS: PHOSPHOROUS 4.5 mg/dL (2.5-4.9)
[2016-03-18] MEDS ORDERED: PT OWN MED DRAWER 7, Y5N ONE ×2 (09:06→17:33)
[2016-03-18] MEDS: DULoxetine HCL 20 MG CAPSULE.DR (FP) PO SCH (09:58)
[2016-03-18] MEDS: predniSONE 20 MG TABLET (UD) PO SCH (09:58)
[2016-03-18] MEDS: PREGABALIN 50 MG CAPSULE PO SCH (09:58)
[2016-03-18] MEDS: TORSEMIDE 20 MG TABLET (FP) PO SCH (09:58)
[2016-03-18] MEDS: amLODIPine BESYLATE 10 MG TABLET (FP) PO SCH (09:58)
[2016-03-18] MEDS: TIOTROPIUM BROMIDE 18 MCG/INH (DEVICE W/ 5 CAPSULES) IH SCH (09:59)
[2016-03-18] MEDS: CALCITRIOL 0.25 MCG CAPSULE (FP) PO SCH (09:59)
[2016-03-18 10:13] LABS: PLATELET COMMENT2 NO CLOTTING DETECTED; PLATELET ESTIMATE MARKEDLY DECREASED (NORMAL)
[2016-03-18 10:15] LABS: ANISOCYTOSIS 2+; HYPOCHROMIA 2+; MICROCYTOSIS 1+; POIKILOCYTOSIS 2+
[2016-03-18 10:16] LABS: OVALOCYTES 1+; SPHEROCYTE 1+
[2016-03-18] MEDS: ACETYLCYSTEINE 20% 200MG/ML 4 ML VIAL *FOR ORAL / INH USE ONLY NEB SCH ×2 (11:06→22:25)
[2016-03-18] MEDS: ARFORMOTEROL TARTRATE 15 MCG/2 ML VIAL NEB SCH ×2 (11:06→22:25)
--- NOTE | 2016-03-18 11:47 | PN ---
Progress Note (short form) - Note Progress Note: Patient is c/o having constipation and has not gone to the bathroom x 6 days as per patient. Temperature 97.5 F L 03/18/16 05:52 Pulse Rate 78 03/18/16 05:52 Respiratory Rate 20 03/18/16 05:52 Blood Pressure 154/69 03/18/16 05:52 O2 Sat by Pulse Oximetry (%) 94 L 03/18/16 11:05 GENERAL: The patient is awake, alert, and fully oriented, in no acute distress. HEAD: Normal with no signs of trauma. EYES: sclera anicteric, conjunctiva clear. ENT: moist mucous membranes. NECK: Trachea midline, full range of motion LUNGS: Diminished breath sounds BL, decreased air entery bl, no wheezing, HEART: Regular rate and rhythm, S1, S2 without murmur, rub or gallop. ABDOMEN: Soft, mild tenderness, mildly distended, normoactive bowel sounds, large abdomen, no masses are appreciated. EXTREMITIES: warm, B/L cellulitic changes with lymphedema, B/L LE 3+ pitting edema NEUROLOGICAL: Normal speech, gait not observed. PSYCH: Normal mood, normal affect. SKIN: Warm, dry, normal turgor, skin changes as noted above in extremities. CBCD WBC 6.0 K/mm3 (4.0-10.0) 03/18/16 06:30 RBC 2.76 M/mm3 (4.00-5.60) L 03/18/16 06:30 Hgb 7.2 GM/dL (11.7-16.9) L 03/18/16 06:30 Hct 22.9 % (35.4-49) L 03/18/16 06:30 MCV 83.1 fl (80-96) 03/18/16 06:30 MCHC 31.5 g/dl (32.0-35.9) L 03/18/16 06:30 RDW 21.7 % (11.9-15.9) H 03/18/16 06:30 Plt Count 42 K/MM3 (134-434) L 03/18/16 06:30 MPV 9.8 fl (7.5-11.1) 03/18/16 06:30 CMP Sodium 139 mmol/L (136-145) 03/18/16 06:30 Potassium 4.3 mmol/L (3.5-5.1) 03/18/16 06:30 Chloride 99 mmol/L (98-107) 03/18/16 06:30 Carbon Dioxide 28 mmol/L (21-32) 03/18/16 06:30 Anion Gap 12 (8-16) 03/18/16 06:30 BUN 125 mg/dL (7-18) H* 03/18/16 06:30 Creatinine 4.0 mg/dL (0.7-1.3) H 03/18/16 06:30 Creat Clearance w eGFR 16.70 (>60) 03/06/16 07:30 Random Glucose 191 mg/dL (74-106) H D 03/18/16 06:30 Calcium 7.6 mg/dL (8.5-10.1) L 03/18/16 06:30 Total Bilirubin 0.7 mg/dL (0.2-1.0) D 03/06/16 07:30 AST 14 U/L (15-37) L D 03/06/16 07:30 ALT 35 U/L (12-78) 03/06/16 07:30 Alkaline Phosphatase 57 U/L (45-117) 03/06/16 07:30 Total Protein 6.2 g/dl (6.4-8.2) L 03/06/16 07:30 Albumin 3.3 g/dl (3.4-5.0) L 03/06/16 07:30 CARDIAC ENZYMES Creatine Kinase 76 IU/L (39-308) 02/19/16 05:30 Troponin I < 0.02 ng/ml (0.015-0.045) 02/19/16 21:50 Current Medications Generic Name Dose Route Start Last Admin Trade Name Freq PRN Reason Stop Dose Admin Acetaminophen 650 mg 03/09/16 16:50 03/16/16 16:57 Tylenol - PO 650 mg Q6H PRN Administration FEVER OR PAIN Acetylcysteine 200 mg 02/26/16 10:00 03/18/16 11:06 Mucomyst 20 Oral / Inh Use Only* NEB 200 mg BID LESLEE Administration Albuterol Sulfate 1 amp 03/06/16 16:01 03/17/16 07:24 Ventolin 0.083% Nebulizer Soln - NEB 1 amp Q4H PRN Administration SHORT OF BREATH/WHEEZING Albuterol Sulfate 1 amp 03/06/16 18:00 03/18/16 05:58 Ventolin 0.083% Nebulizer Soln - NEB 1 amp QIDR LESLEE Administration Amlodipine Besylate 10 mg 03/11/16 08:30 03/18/16 09:58 Norvasc - PO 10 mg DAILY LESLEE Administration Arformoterol Tartrate 1 amp 02/23/16 22:00 03/18/16 11:06 Brovana (Restricted To Pulmonology/Resp) - NEB 1 amp BID LESLEE Administration Calcitriol 0.25 mcg 02/24/16 12:45 03/18/16 09:59 Rocaltrol - PO 0.25 mcg DAILY LESLEE Administration Calcium Acetate 1,334 mg 03/12/16 12:00 03/18/16 08:49 Phoslo - PO 1,334 mg TIDCM LESLEE Administration Docusate Sodium 100 mg 03/10/16 17:34 03/18/16 08:49 Colace - PO 100 mg BID PRN Administration CONSTIPATION Duloxetine HCl 20 mg 02/24/16 10:00 03/18/16 09:58 Cymbalta - PO 20 mg DAILY LESLEE Administration Epoetin Keith 20,000 unit 03/15/16 10:00 03/17/16 10:47 Procrit - SQ 20,000 unit MOWEFR LESLEE Administration Clindamycin Phosphate 300 mg/ 50 mls @ 104 mls/hr 03/16/16 18:00 03/18/16 09:57 Dextrose IVPB 104 mls/hr Q8H-IV L[facility]E Administration Aztreonam 0.5 gm/ Dextrose 50 mls @ 100 mls/hr 03/16/16 18:00 03/18/16 09:56 IVPB 100 mls/hr Q8H-IV LESLEE Administration Polyethylene Glycol 17 gm 03/18/16 10:45 Miralax (For Daily Use) - PO DAILY LESLEE Prednisone 20 mg 03/18/16 10:00 03/18/16 09:58 Deltasone - PO 20 mg DAILY LESLEE Administration Pregabalin 50 mg 03/14/16 10:00 03/18/16 09:58 Lyrica - PO 50 mg DAILY LESLEE Administration Tiotropium [place] 1 puff 02/22/16 11:15 03/18/16 09:59 Spiriva - IH 1 puff DAILY LESLEE Administration Torsemide 20 mg 03/17/16 10:00 03/18/16 09:58 Demadex - PO 20 mg DAILY LESLEE Administration Tramadol HCl 50 mg 03/16/16 11:28 03/16/16 11:48 Ultram - PO 50 mg Q12H PRN Administration PAIN Medication Instructions Recorded Acetaminophen W/ Codeine #3 1 tab PO Q6H PRN 02/18/16 [Tylenol # 3 -] Albuterol 0.083% Nebulizer Soni 1 amp NEB ASDIR PRN 02/18/16 [Ventolin 0.083% Nebulizer Soln -] Aspirin [Ecotrin] 81 mg PO DAILY 02/18/16 Duloxetine HCl 20 mg PO DAILY 02/18/16 Furosemide 20 mg PO HS 02/18/16 Furosemide 40 mg PO DAILY 02/18/16 Hydralazine HCl [Apresoline -] 50 mg PO HS 02/18/16 Prasugrel HCl [Effient] 10 mg PO DAILY 02/18/16 Prednisone 5 mg PO DAILY 02/18/16 Pregabalin [Lyrica] 25 mg PO DAILY 02/18/16 Microbiology 03/13/16 18:30 Blood - Peripheral Venous Blood Culture - Preliminary NO GROWTH OBTAINED AFTER 96 HOURS, INCUBATION TO CONTINUE FOR 1 DAYS. 03/13/16 18:30 Blood - Peripheral Venous Blood Culture - Preliminary NO GROWTH OBTAINED AFTER 96 HOURS, INCUBATION TO CONTINUE FOR 1 DAYS. 03/16/16 18:40 Blood - Peripheral Venous Blood Culture - Preliminary NO GROWTH OBTAINED AFTER 24 HOURS, INCUBATION TO CONTINUE FOR 4 DAYS. 03/16/16 18:40 Blood - Peripheral Venous Blood Culture - Preliminary NO GROWTH OBTAINED AFTER 24 HOURS, INCUBATION TO CONTINUE FOR 4 DAYS. 03/08/16 10:15 Blood - Peripheral Venous Blood Culture - Final NO GROWTH AFTER 5 DAYS INCUBATION 03/08/16 10:15 Blood - Peripheral Venous Blood Culture - Final NO GROWTH AFTER 5 DAYS INCUBATION 03/07/16 15:30 Pleural Fluid Gram Stain - Final 03/07/16 15:30 Pleural Fluid Body Fluid Culture - Final NO GROWTH OF AEROBIC ORGANISMS AFTER 48 HOURS INCUBATION 03/07/16 15:30 Pleural Fluid Anaerobic Culture - Final NO ANAEROBES WERE ISOLATED 03/07/16 15:30 Pleural Fluid AFB Smear Concentration - Final 03/07/16 15:30 Pleural Fluid Mycobacterial Culture - Preliminary 03/07/16 15:30 Pleural Fluid ALANA Preparation - Preliminary 03/07/16 15:30 Pleural Fluid Fungal Culture - Preliminary 02/29/16 17:40 Nasopharyngeal Swab Respiratory Virus Panel - Final 02/25/16 17:30 Blood - Peripheral Venous Blood Culture - Final NO GROWTH AFTER 5 DAYS INCUBATION 02/25/16 17:30 Blood - Peripheral Venous Blood Culture - Final NO GROWTH AFTER 5 DAYS INCUBATION 02/28/16 17:40 Nasopharyngeal Swab Influenza Types A,B Antigen (TONI) - Final 02/28/16 17:40 Nasopharyngeal Swab - Final 02/26/16 06:45 Urine - Urine Clean Catch Urine Culture - Final NO GROWTH OBTAINED 02/18/16 19:15 Blood - Peripheral Venous Blood Culture - Final NO GROWTH AFTER 5 DAYS INCUBATION 02/18/16 19:15 Blood - Peripheral Venous Blood Culture - Final NO GROWTH AFTER 5 DAYS INCUBATION 02/18/16 18:10 Urine - Urine Clean Catch Urine Culture - Final NO GROWTH OBTAINED ASSESSMENT AND PLAN: 75 year-old man with a PMHx of HTN, PVD, COPD, CKD (baseline Cr 1.8), nephrolithiasis, D CHF , CAD s/p stenting in 03/23 and chronic LE lymphedema. presented with SOB and was found to have acute hypercapnic resp failure with acute renal failure . # ACUTE CONSTIPATION: PLACED THE PATIENT ON MiRALAX PER , Giving fleet enema mineral now, discussed with . # Lower extremeties swelling/lymphedema/ Celullutis improving, family requesting on consult since the patient follows with , vascular surgeon. on the case ON IV clindamycin as per ID continue. # s/p Sepsis secondary to cellulitis of legs continuous with swelling of lower extremities on po meds,discussed with ID will switch to IV Clindamycin. # Acute bilateral pleural effusions s/p Thoracocentensis by IR on the right side , Plan for the left side thoracentesis by IR. Prednisone taper, Spiriva, BiPAP, Brovana, Acetylcysteine nebulizers, Albuterol nebulizers, Torsemide # Acute hypercapnic respiratory failure due to acute exacerbation of COPD. on bipap as needed, Prednisone being tapered, continue nebuliazer tx; mucomyst. # acute on chronic diastolic heart failure on Demadex now, lowered the dose to 20mg since patient kidney function is deteriorating, s/p IV Lasix ; nephrology and cardiology on the case. # KARLOS on stage 3 CKD;creatinine stable ,on Calcitriol and PhosLo as per Nephrology continue # Microcytic anemia secondary to CKD on Epogen continue # HTN continue Norvasc, Hydralazine, Torsemide # CAD, history of stent Aspirin, Effient on hold for thoracentesis; Not on beta-regine secondary to COPD; Not on ACEI secondary to KARLOS # Peripheral neuropathy continue Lyrica # Hx of Depression continue Cymbalta DVt Px: Effient on hold for now due patient will be going for left Thoracentesisi Visit type - Emergency Visit Emergency Visit: Yes ED Registration Date: 02/18/16 Care time: The patient presented to the Emergency Department on the above date and was hospitalized for further evaluation of their emergent condition. - New Patient This patient is new to me today: No - Critical Care Critical Care patient: No
[2016-03-18] MEDS ORDERED: MINERAL OIL ENEMA 133 ML ENEMA PR ONE (12:08)
[2016-03-18] MEDS: POLYETHYLENE GLYCOL 3350 119 GM BTL PO SCH (12:30)
--- NOTE | 2016-03-18 12:55 | PN ---
Progress Note (short form) - Note Progress Note: Renal Follow up for KARLOS Pt seen and examined at the bedside complains of constipation no sob, chest pain on bipap Vital Signs Temperature 97.5 F L 03/18/16 05:52 Pulse Rate 78 03/18/16 05:52 Respiratory Rate 20 03/18/16 05:52 Blood Pressure 154/69 03/18/16 05:52 O2 Sat by Pulse Oximetry (%) 94 L 03/18/16 11:05 Intake & Output 03/15/16 03/16/16 03/17/16 03/18/16 23:59 23:59 23:59 23:59 Intake Total 500 750 150 Output Total 950 300 425 Balance -950 200 325 150 Gen: NAD CVS: RRR No M/R Lungs: dec BS throughout the lung rey Abd: Soft NT + Mild distension Ext: > 3+ edema, no cyanosis or clubbing CBC, BMP 03/18/16 06:30 03/18/16 06:30 Current Medications Acetaminophen (Tylenol -) 650 mg PO Q6H PRN PRN Reason: FEVER OR PAIN Last Admin: 03/16/16 16:57 Dose: 650 mg Acetylcysteine (Mucomyst 20 Oral / Inh Use Only*) 200 mg NEB BID [facility] Last Admin: 03/18/16 11:06 Dose: 200 mg Albuterol Sulfate (Ventolin 0.083% Nebulizer Soln -) 1 amp NEB Q4H PRN PRN Reason: SHORT OF BREATH/WHEEZING Last Admin: 03/17/16 07:24 Dose: 1 amp Albuterol Sulfate (Ventolin 0.083% Nebulizer Soln -) 1 amp NEB QIDR [facility] Last Admin: 03/18/16 05:58 Dose: 1 amp Amlodipine Besylate (Norvasc -) 10 mg PO DAILY [facility] Last Admin: 03/18/16 09:58 Dose: 10 mg Arformoterol Tartrate (Brovana (Restricted To Pulmonology/Resp) -) 1 amp NEB BID [facility] Last Admin: 03/18/16 11:06 Dose: 1 amp Calcitriol (Rocaltrol -) 0.25 mcg PO DAILY [facility] Last Admin: 03/18/16 09:59 Dose: 0.25 mcg Calcium Acetate (Phoslo -) 1,334 mg PO TIDCM [facility] Last Admin: 03/18/16 12:30 Dose: 1,334 mg Docusate Sodium (Colace -) 100 mg PO BID PRN PRN Reason: CONSTIPATION Last Admin: 03/18/16 08:49 Dose: 100 mg Duloxetine HCl (Cymbalta -) 20 mg PO DAILY [facility] Last Admin: 03/18/16 09:58 Dose: 20 mg Epoetin Keith (Procrit -) 20,000 unit SQ MOWEFR [facility] Last Admin: 03/17/16 10:47 Dose: 20,000 unit Clindamycin Phosphate 300 mg/ (Dextrose) 50 mls @ 104 mls/hr IVPB Q8H-IV [facility] Last Admin: 03/18/16 09:57 Dose: 104 mls/hr Aztreonam 0.5 gm/ Dextrose 50 mls @ 100 mls/hr IVPB Q8H-IV [facility] Last Admin: 03/18/16 09:56 Dose: 100 mls/hr Polyethylene Glycol (Miralax (For Daily Use) -) 17 gm PO DAILY [facility] Last Admin: 03/18/16 12:30 Dose: 17 gm Prednisone (Deltasone -) 20 mg PO DAILY [facility] Last Admin: 03/18/16 09:58 Dose: 20 mg Pregabalin (Lyrica -) 50 mg PO DAILY [facility] Last Admin: 03/18/16 09:58 Dose: 50 mg Tiotropium [place] (Spiriva -) 1 puff IH DAILY [facility] Last Admin: 03/18/16 09:59 Dose: 1 puff Torsemide (Demadex -) 20 mg PO DAILY [facility] Last Admin: 03/18/16 09:58 Dose: 20 mg Tramadol HCl (Ultram -) 50 mg PO Q12H PRN PRN Reason: PAIN Last Admin: 03/16/16 11:48 Dose: 50 mg A/P 75 year old Gentleman with PMhx of CKD Stage 3 (baseline Cr 1.9), Hx of Nephrolithiasis, Hypertension, COPD, CHF, PVD, Chronic LE lymph edema who was sent into the ED from wound care for increased lethargy and decreased urination for several days with KARLOS with BUN/Cr of 115/7.2 and K of 6.5 #Acute Renal Failure on CKD stage 3 secondary to ATN BUN/Cr stable continue torsemide #Fluid overload/LE edema/Pleural effusions/COPD/RSV Continue Toresemide LEg elevatedion Check weights #Hypocalcemia/Hyperphosphatemia/Secondary Hyperparatyrodism Phoslo to 1334 TID with meals with goal phos < 5.5 continue Calcitriol #Microcytic Anemia Continue Epogen 20247 units [facility] Iron saturation was 28% transfuse as per Heme #Hypertension BP ok on Amlodipine 10mg Hydralazine is discontinued #Constipation Miralax/Mineral Oil enema Avoid Fleet enemas Melvin Johnson DO
--- NOTE | 2016-03-18 13:17 | PN ---
Progress Note (short form) - Note Progress Note: Progress Note: Patient seen and examined stable Vital Signs Period Temp Pulse Resp BP Sys/[place] Pulse Ox Last 24 Hr 97.5 F-99.8 F 78-100 20-22 123-154/48-69 93-96 Ext: cellulitis/4= venous stasis CBC, BMP 03/18/16 06:30 03/18/16 06:30 Active Medications Generic Name Dose Route Start Last Admin Trade Name Freq PRN Reason Stop Dose Admin Acetaminophen 650 mg 03/09/16 16:50 03/16/16 16:57 Tylenol - PO 650 mg Q6H PRN Administration FEVER OR PAIN Acetylcysteine 200 mg 02/26/16 10:00 03/18/16 11:06 Mucomyst 20 Oral / Inh Use Only* NEB 200 mg BID [facility] Administration Albuterol Sulfate 1 amp 03/06/16 16:01 03/17/16 07:24 Ventolin 0.083% Nebulizer Soln - NEB 1 amp Q4H PRN Administration SHORT OF BREATH/WHEEZING Albuterol Sulfate 1 amp 03/06/16 18:00 03/18/16 05:58 Ventolin 0.083% Nebulizer Soln - NEB 1 amp QIDR [facility] Administration Amlodipine Besylate 10 mg 03/11/16 08:30 03/18/16 09:58 Norvasc - PO 10 mg DAILY [facility] Administration Arformoterol Tartrate 1 amp 02/23/16 22:00 03/18/16 11:06 Brovana (Restricted To Pulmonology/Resp) - NEB 1 amp BID [facility] Administration Calcitriol 0.25 mcg 02/24/16 12:45 03/18/16 09:59 Rocaltrol - PO 0.25 mcg DAILY [facility] Administration Calcium Acetate 1,334 mg 03/12/16 12:00 03/18/16 12:30 Phoslo - PO 1,334 mg TIDCM [facility] Administration Docusate Sodium 100 mg 03/10/16 17:34 03/18/16 08:49 Colace - PO 100 mg BID PRN Administration CONSTIPATION Duloxetine HCl 20 mg 02/24/16 10:00 03/18/16 09:58 Cymbalta - PO 20 mg DAILY [facility] Administration Epoetin Keith 20,000 unit 03/15/16 10:00 03/17/16 10:47 Procrit - SQ 20,000 unit MOWEFR [facility] Administration Clindamycin Phosphate 300 mg/ 50 mls @ 104 mls/hr 03/16/16 18:00 03/18/16 09:57 Dextrose IVPB 104 mls/hr Q8H-IV [facility] Administration Aztreonam 0.5 gm/ Dextrose 50 mls @ 100 mls/hr 03/16/16 18:00 03/18/16 09:56 IVPB 100 mls/hr Q8H-IV [facility] Administration Polyethylene Glycol 17 gm 03/18/16 10:45 03/18/16 12:30 Miralax (For Daily Use) - PO 17 gm DAILY [facility] Administration Prednisone 20 mg 03/18/16 10:00 03/18/16 09:58 Deltasone - PO 20 mg DAILY [facility] Administration Pregabalin 50 mg 03/14/16 10:00 03/18/16 09:58 Lyrica - PO 50 mg DAILY [facility] Administration Tiotropium [place] 1 puff 02/22/16 11:15 03/18/16 09:59 Spiriva - IH 1 puff DAILY [facility] Administration Torsemide 20 mg 03/17/16 10:00 03/18/16 09:58 Demadex - PO 20 mg DAILY [facility] Administration Tramadol HCl 50 mg 03/16/16 11:28 03/16/16 11:48 Ultram - PO 50 mg Q12H PRN Administration PAIN a/P 75 y/o patient with morbid obesity, CAD, COPD, CHF,pleural effusions, KARLOS on CKD, RSV infection now with worsening cellulitis s/p thoracentesis 03/07 We have been consulted for worsening thrombocytopenia Suspect worsening cellulitis/infection/ CKD given low garde fevers aswell. Unlikely HIT--last exposure 02/17-02/22 --time frame and clinical scenario make it less likely monitor --antiplatelets on hold platelets stable- no bleeding today also with anemia of chronic disease due to CKD. iron studies s/o anemia of chronic disease transfuse PRBCs for hgb <7
--- NOTE | 2016-03-18 14:30 | PN ---
Progress Note, Physician History of Present Illness: patient looks much better breathing better - Current Medication List Current Medications: Active Medications Acetaminophen (Tylenol -) 650 mg PO Q6H PRN PRN Reason: FEVER OR PAIN Last Admin: 03/16/16 16:57 Dose: 650 mg Acetylcysteine (Mucomyst 20 Oral / Inh Use Only*) 200 mg NEB BID [facility] Last Admin: 03/18/16 11:06 Dose: 200 mg Albuterol Sulfate (Ventolin 0.083% Nebulizer Soln -) 1 amp NEB Q4H PRN PRN Reason: SHORT OF BREATH/WHEEZING Last Admin: 03/17/16 07:24 Dose: 1 amp Albuterol Sulfate (Ventolin 0.083% Nebulizer Soln -) 1 amp NEB QIDR [facility] Last Admin: 03/18/16 11:50 Dose: 1 amp Amlodipine Besylate (Norvasc -) 10 mg PO DAILY [facility] Last Admin: 03/18/16 09:58 Dose: 10 mg Arformoterol Tartrate (Brovana (Restricted To Pulmonology/Resp) -) 1 amp NEB BID [facility] Last Admin: 03/18/16 11:06 Dose: 1 amp Calcitriol (Rocaltrol -) 0.25 mcg PO DAILY [facility] Last Admin: 03/18/16 09:59 Dose: 0.25 mcg Calcium Acetate (Phoslo -) 1,334 mg PO TIDCM [facility] Last Admin: 03/18/16 12:30 Dose: 1,334 mg Docusate Sodium (Colace -) 100 mg PO BID PRN PRN Reason: CONSTIPATION Last Admin: 03/18/16 08:49 Dose: 100 mg Duloxetine HCl (Cymbalta -) 20 mg PO DAILY [facility] Last Admin: 03/18/16 09:58 Dose: 20 mg Epoetin Keith (Procrit -) 20,000 unit SQ [facility]OW[facility]FR [facility] Last Admin: 03/17/16 10:47 Dose: 20,000 unit Clindamycin Phosphate 300 mg/ (Dextrose) 50 mls @ 104 mls/hr IVPB Q8H-IV [facility] Last Admin: 03/18/16 09:57 Dose: 104 mls/hr Aztreonam 0.5 gm/ Dextrose 50 mls @ 100 mls/hr IVPB Q8H-IV [facility] Last Admin: 03/18/16 09:56 Dose: 100 mls/hr Polyethylene Glycol (Miralax (For Daily Use) -) 17 gm PO DAILY [facility] Last Admin: 03/18/16 12:30 Dose: 17 gm Prednisone (Deltasone -) 20 mg PO DAILY [facility] Last Admin: 03/18/16 09:58 Dose: 20 mg Pregabalin (Lyrica -) 50 mg PO DAILY [facility] Last Admin: 03/18/16 09:58 Dose: 50 mg Tiotropium [place] (Spiriva -) 1 puff IH DAILY [facility] Last Admin: 03/18/16 09:59 Dose: 1 puff Torsemide (Demadex -) 20 mg PO DAILY [facility] Last Admin: 03/18/16 09:58 Dose: 20 mg Tramadol HCl (Ultram -) 50 mg PO Q12H PRN PRN Reason: PAIN Last Admin: 03/16/16 11:48 Dose: 50 mg - Objective Vital Signs: Vital Signs Temperature 97.5 F L 03/18/16 05:52 Pulse Rate 78 03/18/16 05:52 Respiratory Rate 20 03/18/16 05:52 Blood Pressure 154/69 03/18/16 05:52 O2 Sat by Pulse Oximetry (%) 94 L 03/18/16 11:05 Constitutional: Yes: No Distress, Calm Neck: Yes: Supple Cardiovascular: Yes: Regular Rate and Rhythm Respiratory: Yes: Regular, Poor Air Entry Gastrointestinal: Yes: Normal Bowel Sounds, Soft Musculoskeletal: Yes: Other Extremities: Yes: Other Edema: LLE: 1+, RLE: 1+ Integumentary: Yes: Erythema (resolving on both ext) Neurological: Yes: Alert, Oriented Psychiatric: Yes: Alert Labs: CBC, BMP 03/18/16 06:30 03/18/16 06:30 INR, PTT INR 1.23 (0.82-1.09) H 03/17/16 06:30 Fibrinogen 547.0 mg/dL (238-498) H 03/17/16 06:30 Assessment/Plan 75 year-old man with a PMH of HTN, PVD, COPD, CKD (baseline Cr 1.9), nephrolithiasis, and chronic LE lymphedema. Admitted in acute renal failure. patient is starting to show picture of becoming sicker I am afraid he might become septic Acute on chronic renal failure Hyperkalemia Sepsis s Hypertension Peripheral vascular disease Hypercarbic respiratory failure COPD bilateral cellulitis of the legs rsv lung infection pleural effusion plan patient doing better today cellulitis resolving resp tolerating nasal cannula continue to monitor closely
--- NOTE | 2016-03-18 14:42 | PN ---
Progress Note, Physician History of Present Illness: seen and examined today. appears frail. mild sob. - Current Medication List Current Medications: Active Medications Acetaminophen (Tylenol -) 650 mg PO Q6H PRN PRN Reason: FEVER OR PAIN Last Admin: 03/16/16 16:57 Dose: 650 mg Acetylcysteine (Mucomyst 20 Oral / Inh Use Only*) 200 mg NEB BID [facility] Last Admin: 03/18/16 11:06 Dose: 200 mg Albuterol Sulfate (Ventolin 0.083% Nebulizer Soln -) 1 amp NEB Q4H PRN PRN Reason: SHORT OF BREATH/WHEEZING Last Admin: 03/17/16 07:24 Dose: 1 amp Albuterol Sulfate (Ventolin 0.083% Nebulizer Soln -) 1 amp NEB QIDR [facility] Last Admin: 03/18/16 11:50 Dose: 1 amp Amlodipine Besylate (Norvasc -) 10 mg PO DAILY [facility] Last Admin: 03/18/16 09:58 Dose: 10 mg Arformoterol Tartrate (Brovana (Restricted To Pulmonology/Resp) -) 1 amp NEB BID [facility] Last Admin: 03/18/16 11:06 Dose: 1 amp Calcitriol (Rocaltrol -) 0.25 mcg PO DAILY [facility] Last Admin: 03/18/16 09:59 Dose: 0.25 mcg Calcium Acetate (Phoslo -) 1,334 mg PO TIDCM [facility] Last Admin: 03/18/16 12:30 Dose: 1,334 mg Docusate Sodium (Colace -) 100 mg PO BID PRN PRN Reason: CONSTIPATION Last Admin: 03/18/16 08:49 Dose: 100 mg Duloxetine HCl (Cymbalta -) 20 mg PO DAILY [facility] Last Admin: 03/18/16 09:58 Dose: 20 mg Epoetin Keith (Procrit -) 20,000 unit SQ MOWEFR [facility] Last Admin: 03/17/16 10:47 Dose: 20,000 unit Clindamycin Phosphate 300 mg/ (Dextrose) 50 mls @ 104 mls/hr IVPB Q8H-IV [facility] Last Admin: 03/18/16 09:57 Dose: 104 mls/hr Aztreonam 0.5 gm/ Dextrose 50 mls @ 100 mls/hr IVPB Q8H-IV [facility] Last Admin: 03/18/16 09:56 Dose: 100 mls/hr Polyethylene Glycol (Miralax (For Daily Use) -) 17 gm PO DAILY [facility] Last Admin: 03/18/16 12:30 Dose: 17 gm Prednisone (Deltasone -) 20 mg PO DAILY [facility] Last Admin: 03/18/16 09:58 Dose: 20 mg Pregabalin (Lyrica -) 50 mg PO DAILY [facility] Last Admin: 03/18/16 09:58 Dose: 50 mg Tiotropium [place] (Spiriva -) 1 puff IH DAILY [facility] Last Admin: 03/18/16 09:59 Dose: 1 puff Torsemide (Demadex -) 20 mg PO DAILY [facility] Last Admin: 03/18/16 09:58 Dose: 20 mg Tramadol HCl (Ultram -) 50 mg PO Q12H PRN PRN Reason: PAIN Last Admin: 03/16/16 11:48 Dose: 50 mg - Objective Vital Signs: Vital Signs Temperature 97.5 F L 03/18/16 05:52 Pulse Rate 78 03/18/16 05:52 Respiratory Rate 20 03/18/16 05:52 Blood Pressure 154/69 03/18/16 05:52 O2 Sat by Pulse Oximetry (%) 94 L 03/18/16 11:05 Constitutional: Yes: No Distress, Calm, Obese Eyes: Yes: WNL, Conjunctiva Clear, EOM Intact, PERRL HENT: Yes: WNL, Atraumatic, Normocephalic Neck: Yes: WNL, Supple, Trachea Midline Cardiovascular: Yes: Regular Rate and Rhythm, S1, S2. No: Bradycardia, Tachycardia, Pulse Irregular, Bruit, JVD, Gallop, Murmur, Rub, S3, S4, Varicosities Respiratory: Yes: Regular, Diminished, Rales, Rhonchi. No: Wheezes Gastrointestinal: Yes: WNL, Normal Bowel Sounds, Soft. No: Distention, Tenderness Musculoskeletal: Yes: Muscle Weakness Extremities: Yes: Erythema Edema: Yes Edema: LLE: 2+, RLE: 2+ Peripheral Pulses WNL: Yes Peripheral Pulses: Left Doralis Pedis: 2+, Right Dorsalis Pedis: 2+ Integumentary: Yes: Venous Stasis Changes Neurological: Yes: Alert, Oriented, Cran Nerves II-XII Intact Psychiatric: Yes: Alert, Oriented Labs: CBC, BMP 03/18/16 06:30 03/18/16 06:30 INR, PTT INR 1.23 (0.82-1.09) H 03/17/16 06:30 Fibrinogen 547.0 mg/dL (238-498) H 03/17/16 06:30 - ....Imaging Chest X-ray: Report Reviewed, Image Reviewed EKG: Report Reviewed, Image Reviewed Other: Report Reviewed, Image Reviewed Assessment/Plan Worsening thrombocytopenia of unclear etiology Acute on chronic renal failure Low grade fevers CAD Chronic diastolic CHF RSV lung infection REC: Volume status has improved slightly Cont Torsemide 20mg daily Monitor creat, bun, k antiplatelet Rx on hold for thoracentesis and dropping platelets
[2016-03-19] MEDS: ALBUTEROL SO4 0.083% IH SOL 2.5 MG/3 ML VIAL.NEB. NEB SCH ×4 (00:05→18:08)
[2016-03-19] MEDS: AZTREONAM 0.5 GM in DEXTROSE 5%-WATER - 50 ML IVPB SCH ×3 (01:13→18:16)
[2016-03-19] MEDS: CLINDAMYCIN IVPB 300 MG in DEXTROSE 5%-WATER - 48 ML IVPB SCH ×3 (01:51→18:16)
[2016-03-19] MEDS: DOCUSATE SODIUM 100 MG CAPSULE (FP) PO PRN ×2 (08:10→23:25)
[2016-03-19] MEDS: CALCIUM ACETATE 667 MG CAPSULE (FP) PO SCH ×3 (08:10→18:15)
[2016-03-19 08:50] LABS: BASOPHIL 0.4 % (0-2.0); EOSINOPHIL 1.8 % (0-4.5); MCH 26.3 pg (25.7-33.7); MCHC 31.4 g/dl (32.0-35.9); MEAN CELL VOLUME 83.5 fl (80-96); MEAN PLT VOLUME 9.8 fl (7.5-11.1); NEUTROPHILS 89.3 % (42.8-82.8); PLATELET COUNT 52 K/MM3 (134-434); RDW 21.4 % (11.9-15.9); WHITE BLOOD COUNT 6.9 K/mm3 (4.0-10.0)
[2016-03-19] MEDS ORDERED: morphine CARPU-JECT 2 MG/1 ML DISP.SYRIN IVPUSH PRN (08:52)
[2016-03-19 09:26] LABS: ALBUMIN 2.3 g/dl (3.4-5.0); BILIRUBIN,TOTAL 0.5 mg/dL (0.2-1.0); CALCIUM 8.1 mg/dL (8.5-10.1); MAGNESIUM 2.7 mg/dL (1.8-2.4); PHOSPHOROUS 3.8 mg/dL (2.5-4.9); TOT PROT 5.5 g/dl (6.4-8.2)
[2016-03-19] MEDS ORDERED: PT OWN MED DRAWER 7, Y5N ONE (09:56)
[2016-03-19] MEDS: amLODIPine BESYLATE 10 MG TABLET (FP) PO SCH (09:59)
[2016-03-19] MEDS: TORSEMIDE 20 MG TABLET (FP) PO SCH (09:59)
[2016-03-19] MEDS: PREGABALIN 50 MG CAPSULE PO SCH (10:00)
[2016-03-19] MEDS: TIOTROPIUM BROMIDE 18 MCG/INH (DEVICE W/ 5 CAPSULES) IH SCH (10:00)
[2016-03-19] MEDS: predniSONE 20 MG TABLET (UD) PO SCH (10:00)
[2016-03-19] MEDS: POLYETHYLENE GLYCOL 3350 119 GM BTL PO SCH (10:01)
[2016-03-19] MEDS: CALCITRIOL 0.25 MCG CAPSULE (FP) PO SCH (10:01)
[2016-03-19] MEDS: DULoxetine HCL 20 MG CAPSULE.DR (FP) PO SCH (10:01)
[2016-03-19] MEDS: ALBUTEROL SO4 0.083% IH SOL 2.5 MG/3 ML VIAL.NEB. NEB PRN ×2 (10:41→22:28)
[2016-03-19] MEDS: ACETYLCYSTEINE 20% 200MG/ML 4 ML VIAL *FOR ORAL / INH USE ONLY NEB SCH ×2 (10:41→22:27)
[2016-03-19] MEDS ORDERED: morphine CARPU-JECT 2 MG/1 ML DISP.SYRIN IVPUSH ONE (11:00)
--- NOTE | 2016-03-19 11:50 | PN ---
Progress Note, Physician History of Present Illness: seen and examined today. c/o severe rectal pain. - Current Medication List Current Medications: Active Medications Acetaminophen (Tylenol -) 650 mg PO Q6H PRN PRN Reason: FEVER OR PAIN Last Admin: 03/16/16 16:57 Dose: 650 mg Acetylcysteine (Mucomyst 20 Oral / Inh Use Only*) 200 mg NEB BID [facility] Last Admin: 03/19/16 10:41 Dose: 200 mg Albuterol Sulfate (Ventolin 0.083% Nebulizer Soln -) 1 amp NEB Q4H PRN PRN Reason: SHORT OF BREATH/WHEEZING Last Admin: 03/19/16 10:41 Dose: 1 amp Albuterol Sulfate (Ventolin 0.083% Nebulizer Soln -) 1 amp NEB QIDR [facility] Last Admin: 03/19/16 06:25 Dose: 1 amp Amlodipine Besylate (Norvasc -) 10 mg PO DAILY [facility] Last Admin: 03/19/16 09:59 Dose: 10 mg Calcitriol (Rocaltrol -) 0.25 mcg PO DAILY [facility] Last Admin: 03/19/16 10:01 Dose: 0.25 mcg Calcium Acetate (Phoslo -) 1,334 mg PO TIDCM [facility] Last Admin: 03/19/16 08:10 Dose: 1,334 mg Docusate Sodium (Colace -) 100 mg PO BID PRN PRN Reason: CONSTIPATION Last Admin: 03/19/16 08:10 Dose: 100 mg Duloxetine HCl (Cymbalta -) 20 mg PO DAILY [facility] Last Admin: 03/19/16 10:01 Dose: 20 mg Epoetin Keith (Procrit -) 20,000 unit SQ [facility]OWEFR [facility] Last Admin: 03/17/16 10:47 Dose: 20,000 unit Clindamycin Phosphate 300 mg/ (Dextrose) 50 mls @ 104 mls/hr IVPB Q8H-IV [facility] Last Admin: 03/19/16 10:01 Dose: 104 mls/hr Aztreonam 0.5 gm/ Dextrose 50 mls @ 100 mls/hr IVPB Q8H-IV [facility] Last Admin: 03/19/16 10:01 Dose: 100 mls/hr Morphine Sulfate (Morphine Injection -) 2 mg IVPUSH Q4H PRN PRN Reason: PAIN Polyethylene Glycol (Miralax (For Daily Use) -) 17 gm PO DAILY [facility] Last Admin: 03/19/16 10:01 Dose: 17 gm Prednisone (Deltasone -) 20 mg PO DAILY [facility] Last Admin: 03/19/16 10:00 Dose: 20 mg Pregabalin (Lyrica -) 50 mg PO DAILY [facility] Last Admin: 03/19/16 10:00 Dose: 50 mg Tiotropium [place] (Spiriva -) 1 puff IH DAILY [facility] Last Admin: 03/19/16 10:00 Dose: 1 puff Torsemide (Demadex -) 20 mg PO DAILY [facility] Last Admin: 03/19/16 09:59 Dose: 20 mg - Objective Vital Signs: Vital Signs Temperature 98.8 F 03/19/16 06:23 Pulse Rate 94 H 03/19/16 06:23 Respiratory Rate 22 03/19/16 06:23 Blood Pressure 154/59 03/19/16 06:23 O2 Sat by Pulse Oximetry (%) 96 03/18/16 21:00 Constitutional: Yes: Anxious, Mild Distress, Obese Eyes: Yes: WNL, Conjunctiva Clear, PERRL HENT: Yes: WNL, Atraumatic, Normocephalic Neck: Yes: WNL, Supple, Trachea Midline Cardiovascular: Yes: Regular Rate and Rhythm, S1, S2. No: Bradycardia, Tachycardia, Pulse Irregular, Bruit, JVD, Gallop, Murmur, Rub, S3, S4, Varicosities Respiratory: Yes: Regular, Diminished. No: Rales, Rhonchi, Wheezes Gastrointestinal: Yes: WNL, Normal Bowel Sounds, Soft, Distention, Tenderness Musculoskeletal: Yes: Back Pain Extremities: Yes: Delayed Capillary Refill, Erythema Edema: Yes Edema: LLE: 2+, RLE: 2+ Peripheral Pulses WNL: No Integumentary: Yes: Pressure Ulcer Neurological: Yes: Alert, Oriented Psychiatric: Yes: Alert, Oriented Labs: CBC, BMP 03/19/16 08:26 03/19/16 08:26 INR, PTT INR 1.23 (0.82-1.09) H 03/17/16 06:30 Fibrinogen 547.0 mg/dL (238-498) H 03/17/16 06:30 - ....Imaging Chest X-ray: Report Reviewed, Image Reviewed EKG: Report Reviewed, Image Reviewed Other: Report Reviewed, Image Reviewed Assessment/Plan Worsening thrombocytopenia of unclear etiology Acute on chronic renal failure Low grade fevers CAD Chronic diastolic CHF RSV lung infection REC: Volume status has improved slightly Cont Torsemide 20mg daily Monitor creat, bun, k antiplatelet Rx has been on hold for thoracentesis and dropping platelets Pt complaining of severe rectal pain, he requested morphine, low dose morphine ordered, monitor closely for respiratory status with narcotics Pt has poor overall prognosis would cont with palliative care evaluation
[2016-03-19] MEDS ORDERED: ZINC OXIDE/PANTHENOL/VITAMIN E 56 GM TUBE TP PRN (12:41)
--- NOTE | 2016-03-19 12:45 | PN ---
Physical Exam: SUBJECTIVE: Patient seen and examined at bedside. Pt states he's not feeling well because he hasn't been able to have any BM despite enemas. He feels like he has burning around rectum. Nurse states he has been urinating and his skin has been soaking with urine frequently despite diaper. He states that his breathing is well today. Denies CP, SOB at rest, abd pain. Did not use bipap overnight. OBJECTIVE: Vital Signs Temperature 98.8 F 03/19/16 06:23 Pulse Rate 94 H 03/19/16 06:23 Respiratory Rate 22 03/19/16 06:23 Blood Pressure 154/59 03/19/16 06:23 O2 Sat by Pulse Oximetry (%) 96 03/18/16 21:00 GENERAL: The patient is awake, alert, and fully oriented, in no acute distress. HEAD: Normal with no signs of trauma. Face is flushed, red. EYES: PERRL, extraocular movements intact, sclera anicteric, conjunctiva clear. No ptosis. NECK: Trachea midline, full range of motion, supple. LUNGS: Diminished breath sounds, clear to auscultation bilaterally, no wheezes, no crackles, no accessory muscle use. HEART: Regular rate and rhythm, S1, S2 without murmur, rub or gallop. ABDOMEN: Soft, obese, nontender, nondistended, normoactive bowel sounds, no guarding, no rebound, no hepatosplenomegaly, no masses. EXTREMITIES: warm, well-perfused, B/L cellulitic changes, B/L LE 3+ pitting edema and alvarado crusted lesions. NEUROLOGICAL: Cranial nerves II through XII grossly intact. Normal speech, gait not observed. PSYCH: Normal mood, normal affect. SKIN: Warm, dry, normal turgor, Laboratory Results - last 24 hr 03/19/16 03/19/16 08:26 08:26 WBC 6.9 RBC 3.01 L Hgb 7.9 L Hct 25.1 L MCV 83.5 MCHC 31.4 L RDW 21.4 H Plt Count 52 L D MPV 9.8 Neutrophils % 89.3 H Lymphocytes % 5.5 L D Monocytes % 3.0 L Eosinophils % 1.8 D Basophils % 0.4 Sodium 141 Potassium 3.9 Chloride 101 Carbon Dioxide 30 Anion Gap 10 BUN 140 H* Creatinine 4.0 H Creat Clearance w eGFR 14.79 Random Glucose 141 H D Calcium 8.1 L Phosphorus 3.8 Magnesium 2.7 H Total Bilirubin 0.5 D AST 19 D ALT 41 Alkaline Phosphatase 135 H D Total Protein 5.5 L Albumin 2.3 L D Microbiology 03/13/16 18:30 Blood - Peripheral Venous Blood Culture - Final NO GROWTH AFTER 5 DAYS INCUBATION 03/13/16 18:30 Blood - Peripheral Venous Blood Culture - Final NO GROWTH AFTER 5 DAYS INCUBATION 03/16/16 18:40 Blood - Peripheral Venous Blood Culture - Preliminary NO GROWTH OBTAINED AFTER 48 HOURS, INCUBATION TO CONTINUE FOR 3 DAYS. 03/16/16 18:40 Blood - Peripheral Venous Blood Culture - Preliminary NO GROWTH OBTAINED AFTER 48 HOURS, INCUBATION TO CONTINUE FOR 3 DAYS. 03/08/16 10:15 Blood - Peripheral Venous Blood Culture - Final NO GROWTH AFTER 5 DAYS INCUBATION 03/08/16 10:15 Blood - Peripheral Venous Blood Culture - Final NO GROWTH AFTER 5 DAYS INCUBATION 03/07/16 15:30 Pleural Fluid Gram Stain - Final 03/07/16 15:30 Pleural Fluid Body Fluid Culture - Final NO GROWTH OF AEROBIC ORGANISMS AFTER 48 HOURS INCUBATION 03/07/16 15:30 Pleural Fluid Anaerobic Culture - Final NO ANAEROBES WERE ISOLATED 03/07/16 15:30 Pleural Fluid AFB Smear Concentration - Final 03/07/16 15:30 Pleural Fluid Mycobacterial Culture - Preliminary 03/07/16 15:30 Pleural Fluid ALANA Preparation - Preliminary 03/07/16 15:30 Pleural Fluid Fungal Culture - Preliminary 02/29/16 17:40 Nasopharyngeal Swab Respiratory Virus Panel - Final 02/25/16 17:30 Blood - Peripheral Venous Blood Culture - Final NO GROWTH AFTER 5 DAYS INCUBATION 02/25/16 17:30 Blood - Peripheral Venous Blood Culture - Final NO GROWTH AFTER 5 DAYS INCUBATION 02/28/16 17:40 Nasopharyngeal Swab Influenza Types A,B Antigen (TONI) - Final 02/28/16 17:40 Nasopharyngeal Swab - Final 02/26/16 06:45 Urine - Urine Clean Catch Urine Culture - Final NO GROWTH OBTAINED 02/18/16 19:15 Blood - Peripheral Venous Blood Culture - Final NO GROWTH AFTER 5 DAYS INCUBATION 02/18/16 19:15 Blood - Peripheral Venous Blood Culture - Final NO GROWTH AFTER 5 DAYS INCUBATION 02/18/16 18:10 Urine - Urine Clean Catch Urine Culture - Final NO GROWTH OBTAINED Active Medications Generic Name Dose Route Start Last Admin Trade Name Freq PRN Reason Stop Dose Admin Acetaminophen 650 mg 03/09/16 16:50 03/16/16 16:57 Tylenol - PO 650 mg Q6H PRN Administration FEVER OR PAIN Acetylcysteine 200 mg 02/26/16 10:00 03/19/16 10:41 Mucomyst 20 Oral / Inh Use Only* NEB 200 mg BID LESLEE Administration Albuterol Sulfate 1 amp 03/06/16 16:01 03/19/16 10:41 Ventolin 0.083% Nebulizer Soln - NEB 1 amp Q4H PRN Administration SHORT OF BREATH/WHEEZING Albuterol Sulfate 1 amp 03/06/16 18:00 03/19/16 06:25 Ventolin 0.083% Nebulizer Soln - NEB 1 amp QIDR LESLEE Administration Amlodipine Besylate 10 mg 03/11/16 08:30 03/19/16 09:59 Norvasc - PO 10 mg DAILY LESLEE Administration Calcitriol 0.25 mcg 02/24/16 12:45 03/19/16 10:01 Rocaltrol - PO 0.25 mcg DAILY LESLEE Administration Calcium Acetate 1,334 mg 03/12/16 12:00 03/19/16 08:10 Phoslo - PO 1,334 mg TIDCM LESLEE Administration Docusate Sodium 100 mg 03/10/16 17:34 03/19/16 08:10 Colace - PO 100 mg BID PRN Administration CONSTIPATION Duloxetine HCl 20 mg 02/24/16 10:00 03/19/16 10:01 Cymbalta - PO 20 mg DAILY LESLEE Administration Epoetin Keith 20,000 unit 03/15/16 10:00 03/17/16 10:47 Procrit - SQ 20,000 unit MOWEFR LESLEE Administration Clindamycin Phosphate 300 mg/ 50 mls @ 104 mls/hr 03/16/16 18:00 03/19/16 10:01 Dextrose IVPB 104 mls/hr Q8H-IV LESLEE Administration Aztreonam 0.5 gm/ Dextrose 50 mls @ 100 mls/hr 03/16/16 18:00 03/19/16 10:01 IVPB 100 mls/hr Q8H-IV LESLEE Administration Morphine Sulfate 2 mg 03/19/16 10:39 Morphine Injection - IVPUSH Q4H PRN PAIN Polyethylene Glycol 17 gm 03/18/16 10:45 03/19/16 10:01 Miralax (For Daily Use) - PO 17 gm DAILY LESLEE Administration Prednisone 20 mg 03/18/16 10:00 03/19/16 10:00 Deltasone - PO 20 mg DAILY LESLEE Administration Pregabalin 50 mg 03/14/16 10:00 03/19/16 10:00 Lyrica - PO 50 mg DAILY LESLEE Administration Tiotropium [place] 1 puff 02/22/16 11:15 03/19/16 10:00 Spiriva - IH 1 puff DAILY LESLEE Administration Torsemide 20 mg 03/17/16 10:00 03/19/16 09:59 Demadex - PO 20 mg DAILY LESLEE Administration ASSESSMENT/PLAN: 75 year-old man with a PMH of HTN, PVD, COPD, CKD (baseline Cr 1.9), nephrolithiasis, and chronic LE lymphedema. Admitted for acute renal failure ( hyperkalemia) and respiratory distress. #Rectal pain -morphine 2mg IVP q4h PRN # Acute on chronic renal failure -limit fluid intake to 1L per day due to SOB. -140/4 today (baseline 1.8-1.9) -c/w torsemide 20 mg po qd # Acute COPD exacerbation with hypercapnic respiratory failure -Used bipap last night -SOB improving -brovana, albuterol neb q4h PRN, albuterol neb standing qid -prednisone 20 mg PO qd (day 2 today at 20 mg) -bipap use at night instructed #SOB -Resp virus panel (02/28) - RSV positive -diuresis with torsemide 20 mg po qd -s/p R thoracentesis. 800 cc fluid removed. -fluid analysis: WBC 232, RBC: 1940, total protein: 2.184, LDH: 91.591, glucose: 215.755, amylase 8.508. -BiPap use at night. -thoracentesis now on L side - held ASA and prasugrel (will hold for 5 days total before thoracentesis) -today is day 6 off asa and prasugrel #Cellulitis of B/L LE -improving -clindamycin 300 mg IV q8 (day 4) -aztreonam 0.5 g IV q8 (day 4) # Anemia, microcytic -Anemia of chronic disease secondary to CKD, -Hgb 7.9 (s/p 2 unit PRBC this admission); -Transfuse if Hgb <7. -Epoetin 20,000 units SQ MWF # HTN -hydralazine stopped due to possible renal hypoperfusion with increased creatinine now. -goal systolic BP 120-140 -norvasc 10 mg po qd #. CHF (diastolic) -torsemide decreased to 20 mg qd # Hx of Depression -c/w cymbalta 20mg #Neuropathy -lyrica 50 mg PO qd # CAD -prasugrel 10 mg PO qd, on hold for now for thoracentesis -continue prasugrel until 04/2016 #. FEN -hypocalcemia -c/w calcitriol - f/u BMP # Dispo: monitor on floors. Continue PT. L thoracentesis for Sunday. Will consider palliative care. Problem List - Problems (1) Acute kidney failure Code(s): N17.9 - ACUTE KIDNEY FAILURE, UNSPECIFIED Qualifiers: Qualified Code(s): N17.9 - Acute kidney failure, unspecified (2) COPD exacerbation Code(s): J44.1 - CHRONIC OBSTRUCTIVE PULMONARY DISEASE W (ACUTE) EXACERBATION (3) Hyperkalemia Code(s): E87.5 - HYPERKALEMIA (4) Acute and chronic respiratory failure ([id number]) Code(s): J96.20 - ACUTE AND CHR RESP FAILURE, UNSP W HYPOXIA OR HYPERCAPNIA Qualifiers: Qualified Code(s): J96.21 - Acute and chronic respiratory failure with hypoxia (5) Acute exacerbation of chronic obstructive pulmonary disease (COPD) Code(s): J44.1 - CHRONIC OBSTRUCTIVE PULMONARY DISEASE W (ACUTE) EXACERBATION (6) Acute on chronic diastolic (congestive) heart failure Code(s): I50.33 - ACUTE ON CHRONIC DIASTOLIC (CONGESTIVE) HEART FAILURE (7) Anxiety and depression Code(s): F41.9 - ANXIETY DISORDER, UNSPECIFIED F32.9 - MAJOR DEPRESSIVE DISORDER, SINGLE EPISODE, UNSPECIFIED (8) Cellulitis Code(s): L03.90 - CELLULITIS, UNSPECIFIED (9) Chronic kidney disease (CKD) Code(s): N18.9 - CHRONIC KIDNEY DISEASE, UNSPECIFIED Qualifiers: Qualified Code(s): N18.9 - Chronic kidney disease, unspecified (10) Diastolic CHF Code(s): I50.30 - UNSPECIFIED DIASTOLIC (CONGESTIVE) HEART FAILURE (11) Hyperlipidemia Code(s): E78.5 - HYPERLIPIDEMIA, UNSPECIFIED (12) Hypertension Code(s): I10 - ESSENTIAL (PRIMARY) HYPERTENSION (13) Obesities, morbid Code(s): E66.01 - MORBID (SEVERE) OBESITY DUE TO EXCESS CALORIES Qualifiers: Qualified Code(s): E66.2 - Morbid (severe) obesity with alveolar hypoventilation (14) Respiratory failure with hypoxia and hypercapnia Code(s): J96.91 - RESPIRATORY FAILURE, UNSPECIFIED WITH HYPOXIA J96.92 - RESPIRATORY FAILURE, UNSPECIFIED WITH HYPERCAPNIA Qualifiers: Qualified Code(s): J96.21 - Acute and chronic respiratory failure with hypoxia; J96.22 - Acute and chronic respiratory failure with hypercapnia (15) Shortness of breath Code(s): R06.02 - SHORTNESS OF BREATH (16) Hematoma Code(s): T14.8 - OTHER INJURY OF UNSPECIFIED BODY REGION Visit type - Emergency Visit Emergency Visit: Yes ED Registration Date: 02/18/16 Care time: The patient presented to the Emergency Department on the above date and was hospitalized for further evaluation of their emergent condition. - New Patient This patient is new to me today: No - Critical Care Critical Care patient: No
--- NOTE | 2016-03-19 12:56 | PN ---
Progress Note, Physician History of Present Illness: feeling better legs are improving breathing on nasal cannula - Current Medication List Current Medications: Active Medications Acetaminophen (Tylenol -) 650 mg PO Q6H PRN PRN Reason: FEVER OR PAIN Last Admin: 03/16/16 16:57 Dose: 650 mg Acetylcysteine (Mucomyst 20 Oral / Inh Use Only*) 200 mg NEB BID [facility] Last Admin: 03/19/16 10:41 Dose: 200 mg Albuterol Sulfate (Ventolin 0.083% Nebulizer Soln -) 1 amp NEB Q4H PRN PRN Reason: SHORT OF BREATH/WHEEZING Last Admin: 03/19/16 10:41 Dose: 1 amp Albuterol Sulfate (Ventolin 0.083% Nebulizer Soln -) 1 amp NEB QIDR LESLEE Last Admin: 03/19/16 06:25 Dose: 1 amp Amlodipine Besylate (Norvasc -) 10 mg PO DAILY [facility] Last Admin: 03/19/16 09:59 Dose: 10 mg Calcitriol (Rocaltrol -) 0.25 mcg PO DAILY [facility] Last Admin: 03/19/16 10:01 Dose: 0.25 mcg Calcium Acetate (Phoslo -) 1,334 mg PO TIDCM [facility] Last Admin: 03/19/16 08:10 Dose: 1,334 mg Docusate Sodium (Colace -) 100 mg PO BID PRN PRN Reason: CONSTIPATION Last Admin: 03/19/16 08:10 Dose: 100 mg Duloxetine HCl (Cymbalta -) 20 mg PO DAILY [facility] Last Admin: 03/19/16 10:01 Dose: 20 mg Epoetin Keith (Procrit -) 20,000 unit SQ MOWEFR [facility] Last Admin: 03/17/16 10:47 Dose: 20,000 unit Clindamycin Phosphate 300 mg/ (Dextrose) 50 mls @ 104 mls/hr IVPB Q8H-IV LESLEE Last Admin: 03/19/16 10:01 Dose: 104 mls/hr Aztreonam 0.5 gm/ Dextrose 50 mls @ 100 mls/hr IVPB Q8H-IV LESLEE Last Admin: 03/19/16 10:01 Dose: 100 mls/hr Morphine Sulfate (Morphine Injection -) 2 mg IVPUSH Q4H PRN PRN Reason: PAIN Polyethylene Glycol (Miralax (For Daily Use) -) 17 gm PO DAILY [facility] Last Admin: 03/19/16 10:01 Dose: 17 gm Prednisone (Deltasone -) 20 mg PO DAILY [facility] Last Admin: 03/19/16 10:00 Dose: 20 mg Pregabalin (Lyrica -) 50 mg PO DAILY [facility] Last Admin: 03/19/16 10:00 Dose: 50 mg Tiotropium [place] (Spiriva -) 1 puff IH DAILY [facility] Last Admin: 03/19/16 10:00 Dose: 1 puff Torsemide (Demadex -) 20 mg PO DAILY [facility] Last Admin: 03/19/16 09:59 Dose: 20 mg Zinc Oxide/Panthenol/Vitamin E (Balmex Cream -) 1 applic TP ASDIR PRN PRN Reason: HYGEINE - Objective Vital Signs: Vital Signs Temperature 98.8 F 03/19/16 06:23 Pulse Rate 94 H 03/19/16 06:23 Respiratory Rate 22 03/19/16 06:23 Blood Pressure 154/59 03/19/16 06:23 O2 Sat by Pulse Oximetry (%) 96 03/18/16 21:00 Constitutional: Yes: Calm, Mild Distress Cardiovascular: Yes: Regular Rate and Rhythm Respiratory: Yes: Regular, CTA Bilaterally Gastrointestinal: Yes: Soft, Hyperactive Bowel Sounds Genitourinary: Yes: Clifford Present Extremities: Yes: Erythema, Other Edema: LLE: 2+, RLE: 2+ Neurological: Yes: Alert, Oriented Psychiatric: Yes: Alert Labs: CBC, BMP 03/19/16 08:26 03/19/16 08:26 INR, PTT INR 1.23 (0.82-1.09) H 03/17/16 06:30 Fibrinogen 547.0 mg/dL (238-498) H 03/17/16 06:30 Assessment/Plan 75 year-old man with a PMH of HTN, PVD, COPD, CKD (baseline Cr 1.9), nephrolithiasis, and chronic LE lymphedema. Admitted in acute renal failure. patient is starting to show picture of becoming sicker I am afraid he might become septic Acute on chronic renal failure Hyperkalemia Sepsis s Hypertension Peripheral vascular disease Hypercarbic respiratory failure COPD bilateral cellulitis of the legs rsv lung infection pleural effusion plan cellulitis improving continue abx probably loyola tart tapering after tomorrow
--- NOTE | 2016-03-19 17:55 | PN ---
Teaching Attending Note Name of Resident: Freddie Strickland ATTENDING PHYSICIAN STATEMENT I saw and evaluated the patient. I reviewed the resident's note and discussed the case with the resident. I agree with the resident's findings and plan as documented. SUBJECTIVE: Patient states he feels OK now. He does report back pain, no abdominal pain. No CP. This AM had an episode of hyperglycemia OBJECTIVE: Gen: appears chronically ill, obese CV: regular Pulm: some tachypneic but not in over respiratory distress. NC not in place. BIPAP at bedside Abd: obese Ext: bilateral erythema mid-way up miller, +bilateral 2+ pitting edema with irregular skin surface ASSESSMENT AND PLAN: 75 year-old man with a PMHx of HTN, PVD, COPD, CKD (baseline Cr 1.8), nephrolithiasis, D CHF , CAD s/p stenting in 03/23 and chronic LE lymphedema. presented with SOB and was found to have acute hypercapnic resp failure with acute renal failure . # Lower extremeties swelling/lymphedema/ Celullutis improving -family requesting on consult since the patient follows with , vascular surgeon. on the case on IV clindamycin and aztreonam # ACUTE CONSTIPATION: on miralax # Acute bilateral pleural effusions s/p Thoracocentensis by IR on the right side , Plan for the left side thoracentesis by IR. Prednisone taper, Spiriva, BiPAP, Brovana, Acetylcysteine nebulizers, Albuterol nebulizers, Torsemide # Acute hypercapnic respiratory failure due to acute exacerbation of COPD. on bipap prn Prednisone being tapered, continue nebulizer tx; mucomyst. # acute on chronic diastolic heart failure on Demadex now, lowered the dose to 20mg since patient kidney function is deteriorating, s/p IV Lasix ; nephrology and cardiology on the case. # KARLOS on stage 3 CKD; creatinine stable ,on Calcitriol and PhosLo as per Nephrology continue # Microcytic anemia secondary to CKD on Epogen continue # HTN continue Norvasc, Hydralazine, Torsemide - monitor BP # CAD, history of stent Aspirin, Effient on hold for thoracentesis; Not on beta-regine secondary to COPD; Not on ACEI secondary to KARLOS # Peripheral neuropathy continue Lyrica # Hx of Depression continue Cymbalta DVt Px: Effient on hold for now due patient will be going for left Thoracentesis
[2016-03-19] MEDS: morphine CARPU-JECT 2 MG/1 ML DISP.SYRIN IVPUSH PRN (23:18)
[2016-03-20 00:17] LABS: HEPARIN INDUCED PLATELET AB. 0.451 OD (0.000-0.400)
[2016-03-20] MEDS: ALBUTEROL SO4 0.083% IH SOL 2.5 MG/3 ML VIAL.NEB. NEB SCH ×4 (00:55→18:15)
[2016-03-20] MEDS: AZTREONAM 0.5 GM in DEXTROSE 5%-WATER - 50 ML IVPB SCH ×3 (02:22→17:23)
[2016-03-20] MEDS: CLINDAMYCIN IVPB 300 MG in DEXTROSE 5%-WATER - 48 ML IVPB SCH ×3 (02:27→17:48)
[2016-03-20 08:13] LABS: MCH 25.9 pg (25.7-33.7); MCHC 30.7 g/dl (32.0-35.9); MEAN CELL VOLUME 84.3 fl (80-96); PLATELET COUNT 46 K/MM3 (134-434); RDW 21.7 % (11.9-15.9); WHITE BLOOD COUNT 4.2 K/mm3 (4.0-10.0)
[2016-03-20] MEDS: CALCIUM ACETATE 667 MG CAPSULE (FP) PO SCH ×3 (08:45→16:52)
[2016-03-20] MEDS: morphine CARPU-JECT 2 MG/1 ML DISP.SYRIN IVPUSH PRN (08:45)
[2016-03-20 08:48] LABS: BILIRUBIN,TOTAL 0.4 mg/dL (0.2-1.0); CALCIUM 7.8 mg/dL (8.5-10.1); CREATININE 3.9 mg/dL (0.7-1.3); MAGNESIUM 2.6 mg/dL (1.8-2.4); PHOSPHOROUS 4.5 mg/dL (2.5-4.9); TOT PROT 4.7 g/dl (6.4-8.2)
[2016-03-20 09:43] LABS: MCH 25.9 pg (25.7-33.7); MCHC 31.1 g/dl (32.0-35.9); MEAN CELL VOLUME 83.4 fl (80-96); MEAN PLT VOLUME 9.4 fl (7.5-11.1); PLATELET COUNT 42 K/MM3 (134-434); RDW 21.4 % (11.9-15.9); WHITE BLOOD COUNT 4.9 K/mm3 (4.0-10.0)
[2016-03-20 10:12] LABS: INR 1.16 (0.82-1.09); PROTHROMBIN TIME (PATIENT) 12.8 SEC (9.98-11.88)
[2016-03-20] MEDS ORDERED: PT OWN MED DRAWER 7, Y5N ONE ×3 (10:21→16:45)
[2016-03-20] MEDS: PREGABALIN 50 MG CAPSULE PO SCH (10:33)
[2016-03-20] MEDS: predniSONE 20 MG TABLET (UD) PO SCH (10:33)
[2016-03-20] MEDS: TORSEMIDE 20 MG TABLET (FP) PO SCH (10:33)
[2016-03-20] MEDS: DULoxetine HCL 20 MG CAPSULE.DR (FP) PO SCH (10:33)
[2016-03-20] MEDS: POLYETHYLENE GLYCOL 3350 119 GM BTL PO SCH (10:34)
[2016-03-20] MEDS: PANTOPRAZOLE 40 MG TABLET (FP) PO SCH (10:34)
[2016-03-20] MEDS: amLODIPine BESYLATE 10 MG TABLET (FP) PO SCH (10:34)
[2016-03-20] MEDS: CALCITRIOL 0.25 MCG CAPSULE (FP) PO SCH (10:34)
[2016-03-20] MEDS: ACETYLCYSTEINE 20% 200MG/ML 4 ML VIAL *FOR ORAL / INH USE ONLY NEB SCH ×2 (11:00→21:00)
--- NOTE | 2016-03-20 11:18 | PN ---
Physical Exam: SUBJECTIVE: Patient seen and examined OBJECTIVE: Vital Signs Period Temp Pulse Resp BP Sys/[place] Pulse Ox Last 24 Hr 97.6 F-98.2 F 81-90 16-20 122-130/52-78 93-94 GENERAL: The patient is awake, alert, and fully oriented, in no acute distress. HEAD: Normal with no signs of trauma. EYES: PERRL, extraocular movements intact, sclera anicteric, conjunctiva clear. No ptosis. ENT: Ears normal, nares patent, oropharynx clear without exudates, moist mucous membranes. NECK: Trachea midline, full range of motion, supple. LUNGS: Breath sounds equal, clear to auscultation bilaterally, no wheezes, no crackles, no accessory muscle use. HEART: Regular rate and rhythm, S1, S2 without murmur, rub or gallop. ABDOMEN: Soft, nontender, nondistended, normoactive bowel sounds, no guarding, no rebound, no hepatosplenomegaly, no masses. EXTREMITIES: 2+ pulses, warm, well-perfused, no edema. NEUROLOGICAL: Cranial nerves II through XII grossly intact. Normal speech, gait not observed. PSYCH: Normal mood, normal affect. SKIN: Warm, dry, normal turgor, no rashes or lesions noted Laboratory Results - last 24 hr 03/17/16 03/18/16 03/20/16 06:30 08:10 06:30 WBC 4.2 D RBC 2.52 L Hgb 6.5 L* D Hct 21.2 L D MCV 84.3 MCHC 30.7 L RDW 21.7 H Plt Count 46 L MPV 10.0 INR Sodium Potassium Chloride Carbon Dioxide Anion Gap BUN Creatinine Creat Clearance w eGFR Random Glucose Calcium Phosphorus Magnesium Total Bilirubin AST ALT Alkaline Phosphatase Total Protein Albumin Hep-Induced Plt Ab Rapid 0.451 H Blood Type A POSITIVE Antibody Screen Negative Crossmatch See Detail 03/20/16 03/20/16 03/20/16 06:30 09:20 09:20 WBC 4.9 RBC 2.59 L Hgb 6.7 L* Hct 21.6 L MCV 83.4 MCHC 31.1 L RDW 21.4 H Plt Count 42 L MPV 9.4 INR 1.16 H Sodium 142 Potassium 4.2 Chloride 101 Carbon Dioxide 30 Anion Gap 11 BUN 133 H* Creatinine 3.9 H Creat Clearance w eGFR 15.23 Random Glucose 108 H D Calcium 7.8 L Phosphorus 4.5 Magnesium 2.6 H Total Bilirubin 0.4 AST 14 L D ALT 34 Alkaline Phosphatase 110 Total Protein 4.7 L Albumin 2.0 L Hep-Induced Plt Ab Rapid Blood Type Antibody Screen Crossmatch Active Medications Generic Name Dose Route Start Last Admin Trade Name Freq PRN Reason Stop Dose Admin Acetaminophen 650 mg 03/09/16 16:50 03/16/16 16:57 Tylenol - PO 650 mg Q6H PRN Administration FEVER OR PAIN Acetylcysteine 200 mg 02/26/16 10:00 03/19/16 22:27 Mucomyst 20 Oral / Inh Use Only* NEB 200 mg BID LESLEE Administration Albuterol Sulfate 1 amp 03/06/16 16:01 03/19/16 22:28 Ventolin 0.083% Nebulizer Soln - NEB 1 amp Q4H PRN Administration SHORT OF BREATH/WHEEZING Albuterol Sulfate 1 amp 03/06/16 18:00 03/20/16 06:52 Ventolin 0.083% Nebulizer Soln - NEB 1 amp QIDR LESLEE Administration Amlodipine Besylate 10 mg 03/11/16 08:30 03/20/16 10:34 Norvasc - PO 10 mg DAILY LESLEE Administration Calcitriol 0.25 mcg 02/24/16 12:45 03/20/16 10:34 Rocaltrol - PO 0.25 mcg DAILY LESLEE Administration Calcium Acetate 1,334 mg 03/12/16 12:00 03/20/16 08:45 Phoslo - PO 1,334 mg TIDCM LESLEE Administration Docusate Sodium 100 mg 03/10/16 17:34 03/19/16 23:25 Colace - PO 100 mg BID PRN Administration CONSTIPATION Duloxetine HCl 20 mg 02/24/16 10:00 03/20/16 10:33 Cymbalta - PO 20 mg DAILY LESLEE Administration Epoetin Keith 20,000 unit 03/15/16 10:00 03/17/16 10:47 Procrit - SQ 20,000 unit MOWEFR LESLEE Administration Clindamycin Phosphate 300 mg/ 50 mls @ 104 mls/hr 03/16/16 18:00 03/20/16 02:27 Dextrose IVPB 104 mls/hr Q8H-IV LESLEE Administration Aztreonam 0.5 gm/ Dextrose 50 mls @ 100 mls/hr 03/16/16 18:00 03/20/16 10:32 IVPB 100 mls/hr Q8H-IV LESLEE Administration Morphine Sulfate 1 mg 03/20/16 10:43 Morphine Injection - IVPUSH Q4H PRN PAIN Pantoprazole Sodium 40 mg 03/20/16 10:00 03/20/16 10:34 Protonix - PO 40 mg DAILY LESLEE Administration Polyethylene Glycol 17 gm 03/18/16 10:45 03/20/16 10:34 Miralax (For Daily Use) - PO 17 gm DAILY LESLEE Administration Prednisone 20 mg 03/18/16 10:00 03/20/16 10:33 Deltasone - PO 20 mg DAILY LESLEE Administration Pregabalin 50 mg 03/14/16 10:00 03/20/16 10:33 Lyrica - PO 50 mg DAILY LESLEE Administration Tiotropium [place] 1 puff 02/22/16 11:15 03/19/16 10:00 Spiriva - IH 1 puff DAILY LESLEE Administration Torsemide 20 mg 03/17/16 10:00 03/20/16 10:33 Demadex - PO 20 mg DAILY LESLEE Administration Zinc Oxide/Panthenol/Vitamin E 1 applic 03/19/16 12:41 Balmex Cream - TP ASDIR PRN HYGEINE ASSESSMENT/PLAN: 75 year-old man with a PMHx of HTN, PVD, COPD, CKD (baseline Cr 1.8), nephrolithiasis, D CHF , CAD s/p stenting in 03/23 and chronic LE lymphedema. presented with SOB and was found to have acute hypercapnic resp failure with acute renal failure . # Lower extremeties swelling/lymphedema/ Celullutis improving -family requesting on consult since the patient follows with , vascular surgeon. on the case on IV clindamycin and aztreonam # ACUTE CONSTIPATION: on miralax # Acute bilateral pleural effusions s/p Thoracocentensis by IR on the right side , Plan for the left side thoracentesis by IR. Prednisone taper, Spiriva, BiPAP, Brovana, Acetylcysteine nebulizers, Albuterol nebulizers, Torsemide # Acute hypercapnic respiratory failure due to acute exacerbation of COPD. on bipap prn Prednisone being tapered, continue nebulizer tx; mucomyst. # acute on chronic diastolic heart failure on Demadex now, lowered the dose to 20mg since patient kidney function is deteriorating, s/p IV Lasix ; nephrology and cardiology on the case. # KARLOS on stage 3 CKD; creatinine stable ,on Calcitriol and PhosLo as per Nephrology continue # Microcytic anemia secondary to CKD on Epogen continue # HTN continue Norvasc, Hydralazine, Torsemide - monitor BP # CAD, history of stent Aspirin, Effient on hold for thoracentesis; Not on beta-regine secondary to COPD; Not on ACEI secondary to KARLOS # Peripheral neuropathy continue Lyrica # Hx of Depression continue Cymbalta DVt Px: Effient on hold for now due patient will be going for left Thoracentesis
--- NOTE | 2016-03-20 11:21 | PN ---
Teaching Attending Note Name of Resident: Freddie Strickland ATTENDING PHYSICIAN STATEMENT I saw and evaluated the patient. I reviewed the resident's note and discussed the case with the resident. I agree with the resident's findings and plan as documented. SUBJECTIVE: Currently on BIPAP, appears SOB. Refused thoracentesis due to feeling SOB/on BIPAP OBJECTIVE: Gen: appears chronically ill, in distress due to SOB, on BIPAP CV: regular Pulm: tachypneic Abd: obese Ext: bilateral erythema mid-way up miller, increased bilateral rubor, +bilateral 2 + pitting edema with irregular skin surface ASSESSMENT AND PLAN: 75 year-old man with a PMHx of HTN, PVD, COPD, CKD (baseline Cr 1.8), nephrolithiasis, diastolic HF CHF , CAD s/p stenting in 03/23 and chronic LE lymphedema. presented with SOB and was found to have acute hypercapnic resp failure with acute renal failure . # Lower extremities swelling/lymphedema/Celullutis - on the case on IV clindamycin and aztreonam. I am concerned the redness may be more related to chronic lymphedema than cellulitis as rubor worses with dependent states -add lactobacillus to prevent C. diff -Dr. Strickland has previously seen pt as outpatient (consulted, still awaiting recs) -would recommend wound care as outpt # Constipation: on miralax prn # Acute bilateral pleural effusions s/p Thoracocentensis by IR on the right side -Left side thoracentesis by IR on hold for now due to resp/acute drop in H/H -recheck CXR -pt needs increased dose of torsemide. Have discussed case with Dr. Ferrer/ Dr. Johnson - will give extra dose of torsemide prior to blood transfusion and then additional dose torsemide X1 between blood transfusion -cont Prednisone taper, Spiriva, BiPAP, Brovana, Acetylcysteine nebulizers, Albuterol nebulizers #Acute blood drop, anemia -transfuse 2 units pRBC -unclear etiology as pt has NOT had any BRBRB or evidence of GIB. Overall, has been trending down may be partially secondary to CKD; he is already on procit. He does have a history of right sided hematoma s/p R side thoracentesis but has been on ASA/plavix/HSQ due to this -stool occult sent, case discussed with heme as pt also with significant thrombocytopenia (with elevated HIT Ab) -No evidence of hemolysis (T. Bili WNL) # Acute hypercapnic respiratory failure due to acute exacerbation of COPD. on bipap prn Prednisone being tapered, continue nebulizer tx; mucomyst. LOW THRESHOLD FOR ICU if respiratory status does not improve with increased dose of torsemide/BIPAP # acute on chronic diastolic heart failure -on torsemide, will increase dose to 40mg daily starting tomorrow in additional to doses today # KARLOS on stage 3 CKD; creatinine stable ,on Calcitriol and PhosLo as per Nephrology continue -have discussed possible dialysis for volume status given difficulty diuresising due to stably elevated Cr # HTN continue Norvasc, Hydralazine, Torsemide - monitor BP # CAD, history of stent Aspirin, Effient on hold for thoracentesis; Not on beta-regine secondary to COPD; Not on ACEI secondary to KARLOS # Peripheral neuropathy continue Lyrica # Hx of Depression continue Cymbalta DVt Px: Effient on hold for now (hopeful to be able to proceed with thoracentesis when clinical status improved)
[2016-03-20] MEDS: EPOETIN ALFA 20,000 UNIT/1 ML VIAL SQ SCH (11:41)
--- NOTE | 2016-03-20 11:41 | PN ---
Progress Note, Physician History of Present Illness: seen and examined today. c/o sob, rectal pain improved with morphine yesterday but he reports being too drowsy with the 2mg of morphine requests that it is decreased. - Current Medication List Current Medications: Active Medications Acetaminophen (Tylenol -) 650 mg PO Q6H PRN PRN Reason: FEVER OR PAIN Last Admin: 03/16/16 16:57 Dose: 650 mg Acetylcysteine (Mucomyst 20 Oral / Inh Use Only*) [address] [facility] Last Admin: 03/19/16 22:27 Dose: 200 mg Albuterol Sulfate (Ventolin 0.083% Nebulizer Soln -) 1 amp NEB Q4H PRN PRN Reason: SHORT OF BREATH/WHEEZING Last Admin: 03/19/16 22:28 Dose: 1 amp Albuterol Sulfate (Ventolin 0.083% Nebulizer Soln -) [address] [facility] Last Admin: 03/20/16 06:52 Dose: 1 amp Amlodipine Besylate (Norvasc -) [address] [facility] Last Admin: 03/20/16 10:34 Dose: 10 mg Calcitriol (Rocaltrol -) 0.[address] [facility] Last Admin: 03/20/16 10:34 Dose: 0.25 mcg Calcium Acetate (Phoslo -) 1,[address] [facility] Last Admin: 03/20/16 08:45 Dose: 1,334 mg Docusate Sodium (Colace -) 100 mg PO BID PRN PRN Reason: CONSTIPATION Last Admin: 03/19/16 23:25 Dose: 100 mg Duloxetine HCl (Cymbalta -) [address] [facility] Last Admin: 03/20/16 10:33 Dose: 20 mg Epoetin Keith (Procrit -) 20,[address] [facility] Last Admin: 03/17/16 10:47 Dose: 20,000 unit Clindamycin Phosphate 300 mg/ (Dextrose) 50 mls @ 104 mls/hr IVPB Q8H-IV [facility] Last Admin: 03/20/16 11:24 Dose: 104 mls/hr Aztreonam 0.5 gm/ Dextrose 50 mls @ 100 mls/hr IVPB Q8H-IV [facility] Last Admin: 03/20/16 10:32 Dose: 100 mls/hr Lactobacillus Acidophilus (Bacid -) [address] [facility] Morphine Sulfate (Morphine Injection -) 1 mg IVPUSH Q4H PRN PRN Reason: PAIN Pantoprazole Sodium (Protonix -) [address] [facility] Last Admin: 03/20/16 10:34 Dose: 40 mg Polyethylene Glycol (Miralax (For Daily Use) -) [address] [facility] Last Admin: 03/20/16 10:34 Dose: 17 gm Prednisone (Deltasone -) [address] [facility] Last Admin: 03/20/16 10:33 Dose: 20 mg Pregabalin (Lyrica -) [address] [facility] Last Admin: 03/20/16 10:33 Dose: 50 mg Tiotropium [place] (Spiriva -) [address] [facility] Last Admin: 03/19/16 10:00 Dose: 1 puff Torsemide (Demadex -) [address] [facility] Last Admin: 03/20/16 10:33 Dose: 20 mg Torsemide (Demadex -) 20 mg PO ONCE STA Stop: 03/20/16 11:19 Zinc Oxide/Panthenol/Vitamin E (Balmex Cream -) 1 applic TP ASDIR PRN PRN Reason: HYGEINE - Objective Vital Signs: Vital Signs Temperature 98.2 F 03/19/16 22:00 Pulse Rate 86 03/20/16 06:51 Respiratory Rate 18 03/20/16 06:40 Blood Pressure 122/67 03/20/16 06:40 O2 Sat by Pulse Oximetry (%) 93 L 03/20/16 06:51 Constitutional: Yes: Anxious, Mild Distress, Obese Eyes: Yes: WNL, Conjunctiva Clear, EOM Intact, PERRL HENT: Yes: WNL, Atraumatic, Normocephalic Neck: Yes: WNL, Supple, Trachea Midline Cardiovascular: Yes: Regular Rate and Rhythm, S1, S2. No: Bradycardia, Tachycardia, Pulse Irregular, Bruit, JVD, Gallop, Murmur, Rub, S3, S4, Varicosities Respiratory: Yes: Regular, Diminished, On Nasal O2. No: Wheezes Gastrointestinal: Yes: WNL, Normal Bowel Sounds, Soft. No: Distention, Tenderness Musculoskeletal: Yes: Muscle Weakness Extremities: Yes: Erythema Edema: Yes Edema: LLE: 3+, RLE: 3+ Peripheral Pulses WNL: No Integumentary: Yes: Erythema, Venous Stasis Changes Psychiatric: Yes: Alert, Oriented Labs: CBC, BMP 03/20/16 09:20 03/20/16 06:30 INR, PTT INR 1.16 (0.82-1.09) H 03/20/16 09:20 Fibrinogen 547.0 mg/dL (238-498) H 03/17/16 06:30 - ....Imaging Chest X-ray: Report Reviewed, Image Reviewed EKG: Report Reviewed, Image Reviewed Other: Report Reviewed, Image Reviewed Assessment/Plan Worsening thrombocytopenia of unclear etiology Acute on chronic renal failure Low grade fevers CAD Chronic diastolic CHF RSV lung infection REC: More sob today and worsening anemia Agree with PRBC transfusions Agree with increasing diuresis for sob and with extra volume load with PRBCs Can give additional Torsemide 20mg today and if needed IV lasix Monitor creat, bun, k antiplatelet Rx has been on hold for thoracentesis and thrombocytopenia and anemia reduce morphine dose Palliative care follow up
[2016-03-20] MEDS ORDERED: TORSEMIDE 20 MG TABLET (FP) PO STA (11:43)
--- NOTE | 2016-03-20 11:51 | PN ---
Physical Exam: SUBJECTIVE: Patient seen and examined at bedside. States: "I can't breathe" but cannot exactly say what he means by that. He does feel SOB. He denies CP, palpitations, dizziness, light-headedness. He had small bowel movements last night as per nurse. Pt has not noticed any overt bleeding. His Hgb was 6.5 this AM and repeat Hgb was 6.7. He refused thoracentesis this AM due to not feeling well. Also denies N/V/F/C. OBJECTIVE: Vital Signs Temperature 98.2 F 03/19/16 22:00 Pulse Rate 86 03/20/16 06:51 Respiratory Rate 18 03/20/16 06:40 Blood Pressure 122/67 03/20/16 06:40 O2 Sat by Pulse Oximetry (%) 93 L 03/20/16 06:51 GENERAL: The patient is awake, alert, and fully oriented, SOB. HEAD: Normal with no signs of trauma. Face is flushed, red. EYES: PERRL, extraocular movements intact, sclera anicteric, conjunctiva clear. No ptosis. NECK: Trachea midline, full range of motion, supple. LUNGS: Diminished breath sounds, clear to auscultation bilaterally, no wheezes, no crackles, no accessory muscle use. HEART: Regular rate and rhythm, S1, S2 without murmur, rub or gallop. ABDOMEN: Soft, obese, nontender, nondistended, normoactive bowel sounds, no guarding, no rebound, no hepatosplenomegaly, no masses. EXTREMITIES: warm, well-perfused, B/L cellulitic changes, B/L LE 3+ pitting edema and alvarado crusted lesions. When pt brings his legs down L leg has increased redness. NEUROLOGICAL: Normal speech, gait not observed. PSYCH: Normal mood, normal affect. SKIN: Warm, dry Laboratory Results - last 24 hr 03/17/16 03/18/16 03/20/16 06:30 08:10 06:30 WBC 4.2 D RBC 2.52 L Hgb 6.5 L* D Hct 21.2 L D MCV 84.3 MCHC 30.7 L RDW 21.7 H Plt Count 46 L MPV 10.0 INR Sodium Potassium Chloride Carbon Dioxide Anion Gap BUN Creatinine Creat Clearance w eGFR Random Glucose Calcium Phosphorus Magnesium Total Bilirubin AST ALT Alkaline Phosphatase Total Protein Albumin Hep-Induced Plt Ab Rapid 0.451 H Blood Type A POSITIVE Antibody Screen Negative Crossmatch See Detail 03/20/16 03/20/16 03/20/16 06:30 09:20 09:20 WBC 4.9 RBC 2.59 L Hgb 6.7 L* Hct 21.6 L MCV 83.4 MCHC 31.1 L RDW 21.4 H Plt Count 42 L MPV 9.4 INR 1.16 H Sodium 142 Potassium 4.2 Chloride 101 Carbon Dioxide 30 Anion Gap 11 BUN 133 H* Creatinine 3.9 H Creat Clearance w eGFR 15.23 Random Glucose 108 H D Calcium 7.8 L Phosphorus 4.5 Magnesium 2.6 H Total Bilirubin 0.4 AST 14 L D ALT 34 Alkaline Phosphatase 110 Total Protein 4.7 L Albumin 2.0 L Hep-Induced Plt Ab Rapid Blood Type Antibody Screen Crossmatch Microbiology 03/16/16 18:40 Blood - Peripheral Venous Blood Culture - Preliminary NO GROWTH OBTAINED AFTER 72 HOURS, INCUBATION TO CONTINUE FOR 2 DAYS. 03/16/16 18:40 Blood - Peripheral Venous Blood Culture - Preliminary NO GROWTH OBTAINED AFTER 72 HOURS, INCUBATION TO CONTINUE FOR 2 DAYS. 03/13/16 18:30 Blood - Peripheral Venous Blood Culture - Final NO GROWTH AFTER 5 DAYS INCUBATION 03/13/16 18:30 Blood - Peripheral Venous Blood Culture - Final NO GROWTH AFTER 5 DAYS INCUBATION 03/08/16 10:15 Blood - Peripheral Venous Blood Culture - Final NO GROWTH AFTER 5 DAYS INCUBATION 03/08/16 10:15 Blood - Peripheral Venous Blood Culture - Final NO GROWTH AFTER 5 DAYS INCUBATION 03/07/16 15:30 Pleural Fluid Gram Stain - Final 03/07/16 15:30 Pleural Fluid Body Fluid Culture - Final NO GROWTH OF AEROBIC ORGANISMS AFTER 48 HOURS INCUBATION 03/07/16 15:30 Pleural Fluid Anaerobic Culture - Final NO ANAEROBES WERE ISOLATED 03/07/16 15:30 Pleural Fluid AFB Smear Concentration - Final 03/07/16 15:30 Pleural Fluid Mycobacterial Culture - Preliminary 03/07/16 15:30 Pleural Fluid ALANA Preparation - Preliminary 03/07/16 15:30 Pleural Fluid Fungal Culture - Preliminary 02/29/16 17:40 Nasopharyngeal Swab Respiratory Virus Panel - Final 02/25/16 17:30 Blood - Peripheral Venous Blood Culture - Final NO GROWTH AFTER 5 DAYS INCUBATION 02/25/16 17:30 Blood - Peripheral Venous Blood Culture - Final NO GROWTH AFTER 5 DAYS INCUBATION 02/28/16 17:40 Nasopharyngeal Swab Influenza Types A,B Antigen (TONI) - Final 02/28/16 17:40 Nasopharyngeal Swab - Final 02/26/16 06:45 Urine - Urine Clean Catch Urine Culture - Final NO GROWTH OBTAINED 02/18/16 19:15 Blood - Peripheral Venous Blood Culture - Final NO GROWTH AFTER 5 DAYS INCUBATION 02/18/16 19:15 Blood - Peripheral Venous Blood Culture - Final NO GROWTH AFTER 5 DAYS INCUBATION 02/18/16 18:10 Urine - Urine Clean Catch Urine Culture - Final NO GROWTH OBTAINED Active Medications Generic Name Dose Route Start Last Admin Trade Name Freq PRN Reason Stop Dose Admin Acetaminophen 650 mg 03/09/16 16:50 03/16/16 16:57 Tylenol - PO 650 mg Q6H PRN Administration FEVER OR PAIN Acetylcysteine 200 mg 02/26/16 10:00 03/19/16 22:27 Mucomyst 20 Oral / Inh Use Only* NEB 200 mg BID [facility] Administration Albuterol Sulfate 1 amp 03/06/16 16:01 03/19/16 22:28 Ventolin 0.083% Nebulizer Soln - NEB 1 amp Q4H PRN Administration SHORT OF BREATH/WHEEZING Albuterol Sulfate 1 amp 03/06/16 18:00 03/20/16 06:52 Ventolin 0.083% Nebulizer Soln - NEB 1 amp QIDR [facility] Administration Amlodipine Besylate 10 mg 03/11/16 08:30 03/20/16 10:34 Norvasc - PO 10 mg DAILY [facility] Administration Calcitriol 0.25 mcg 02/24/16 12:45 03/20/16 10:34 Rocaltrol - PO 0.25 mcg DAILY [facility] Administration Calcium Acetate 1,334 mg 03/12/16 12:00 03/20/16 08:45 Phoslo - PO 1,334 mg TIDCM [facility] Administration Docusate Sodium 100 mg 03/10/16 17:34 03/19/16 23:25 Colace - PO 100 mg BID PRN Administration CONSTIPATION Duloxetine HCl 20 mg 02/24/16 10:00 03/20/16 10:33 Cymbalta - PO 20 mg DAILY [facility] Administration Epoetin Keith 20,000 unit 03/15/16 10:00 03/17/16 10:47 Procrit - SQ 20,000 unit MOWEFR [facility] Administration Clindamycin Phosphate 300 mg/ 50 mls @ 104 mls/hr 03/16/16 18:00 03/20/16 11:24 Dextrose IVPB 104 mls/hr Q8H-IV [facility] Administration Aztreonam 0.5 gm/ Dextrose 50 mls @ 100 mls/hr 03/16/16 18:00 03/20/16 10:32 IVPB 100 mls/hr Q8H-IV [facility] Administration Lactobacillus Acidophilus 1 tab 03/20/16 11:30 Bacid - PO DAILY [facility] Morphine Sulfate 1 mg 03/20/16 10:43 Morphine Injection - IVPUSH Q4H PRN PAIN Pantoprazole Sodium 40 mg 03/20/16 10:00 03/20/16 10:34 Protonix - PO 40 mg DAILY [facility] Administration Polyethylene Glycol 17 gm 03/18/16 10:45 03/20/16 10:34 Miralax (For Daily Use) - PO 17 gm DAILY [facility] Administration Prednisone 20 mg 03/18/16 10:00 03/20/16 10:33 Deltasone - PO 20 mg DAILY [facility] Administration Pregabalin 50 mg 03/14/16 10:00 03/20/16 10:33 Lyrica - PO 50 mg DAILY [facility] Administration Tiotropium [place] 1 puff 02/22/16 11:15 03/19/16 10:00 Spiriva - IH 1 puff DAILY [facility] Administration Torsemide 20 mg 03/17/16 10:00 03/20/16 10:33 Demadex - PO 20 mg DAILY [facility] Administration Torsemide 20 mg 03/20/16 11:18 Demadex - PO 03/20/16 11:19 ONCE STA Zinc Oxide/Panthenol/Vitamin E 1 applic 03/19/16 12:41 Balmex Cream - TP ASDIR PRN HYGEINE ASSESSMENT/PLAN: 75 year-old man with a PMH of HTN, PVD, COPD, CKD (baseline Cr 1.9), nephrolithiasis, and chronic LE lymphedema. Admitted for acute renal failure ( hyperkalemia) and respiratory distress. #Rectal pain -morphine 1 mg IVP q4h PRN #Acute Anemia -Hgb 6.5, repeat Hgb 6.7 -Transfusing 2 units PRBC over 4 hours each. -Torsemide PO 20 mg stat before transfusion -Will reassess after first/second units to see if he will require more diuresis -if more diuresis required, can give IV lasix 40 mg once # Acute on chronic renal failure -limit fluid intake to 1L per day due to SOB. -133/3.9 today (baseline 1.8-1.9) -c/w torsemide 20 mg po qd # Acute COPD exacerbation with hypercapnic respiratory failure -Used bipap last night -SOB worsening today -brovana, albuterol neb q4h PRN, albuterol neb standing qid -prednisone 20 mg PO qd (day 3 today at 20 mg) -bipap use at night instructed -on BiPap currently #SOB -Resp virus panel (02/28) - RSV positive - can remove droplet precautions. -diuresis with torsemide 20 mg po qd -s/p R thoracentesis. 800 cc fluid removed. -fluid analysis: WBC 232, RBC: 1940, total protein: 2.184, LDH: 91.591, glucose: 215.755, amylase 8.508. -BiPap use at night. -thoracentesis now on L side - held ASA and prasugrel (will hold for at least 5 days total before thoracentesis) -refused thoracentesis this AM due to not feeling well -f/u CXR, CXR ordered for today #Cellulitis of B/L LE -improving -clindamycin 300 mg IV q8 (day 4) -aztreonam 0.5 g IV q8 (day 4) # Anemia, microcytic -Anemia of chronic disease secondary to CKD -Hgb 6.5 in AM, repeat 6.7 (s/p 2 unit PRBC this admission); -Transfuse with 2 units. -Epoetin 20,000 units SQ MWF # HTN -hydralazine stopped due to possible renal hypoperfusion with increased creatinine now. -goal systolic BP 120-140 -norvasc 10 mg po qd #. CHF (diastolic) -torsemide 20 mg qd -will consider increasing tomorrow to 40 mg qd # Hx of Depression -c/w cymbalta 20mg #Neuropathy -lyrica 50 mg PO qd # CAD -prasugrel 10 mg PO qd, on hold for now for thoracentesis -continue prasugrel until 04/2016 #. FEN -hypocalcemia -c/w calcitriol - f/u BMP # Dispo: monitor on floors. Continue PT. L thoracentesis not done today. palliative care. Low threshold for ICU. Problem List - Problems (1) Acute kidney failure Code(s): N17.9 - ACUTE KIDNEY FAILURE, UNSPECIFIED Qualifiers: Qualified Code(s): N17.9 - Acute kidney failure, unspecified (2) COPD exacerbation Code(s): J44.1 - CHRONIC OBSTRUCTIVE PULMONARY DISEASE W (ACUTE) EXACERBATION (3) Hyperkalemia Code(s): E87.5 - HYPERKALEMIA (4) Acute and chronic respiratory failure ([id number]) Code(s): J96.20 - ACUTE AND CHR RESP FAILURE, UNSP W HYPOXIA OR HYPERCAPNIA Qualifiers: Qualified Code(s): J96.21 - Acute and chronic respiratory failure with hypoxia (5) Acute exacerbation of chronic obstructive pulmonary disease (COPD) Code(s): J44.1 - CHRONIC OBSTRUCTIVE PULMONARY DISEASE W (ACUTE) EXACERBATION (6) Acute on chronic diastolic (congestive) heart failure Code(s): I50.33 - ACUTE ON CHRONIC DIASTOLIC (CONGESTIVE) HEART FAILURE (7) Anxiety and depression Code(s): F41.9 - ANXIETY DISORDER, UNSPECIFIED F32.9 - MAJOR DEPRESSIVE DISORDER, SINGLE EPISODE, UNSPECIFIED (8) Cellulitis Code(s): L03.90 - CELLULITIS, UNSPECIFIED (9) Chronic kidney disease (CKD) Code(s): N18.9 - CHRONIC KIDNEY DISEASE, UNSPECIFIED Qualifiers: Qualified Code(s): N18.9 - Chronic kidney disease, unspecified (10) Diastolic CHF Code(s): I50.30 - UNSPECIFIED DIASTOLIC (CONGESTIVE) HEART FAILURE (11) Hyperlipidemia Code(s): E78.5 - HYPERLIPIDEMIA, UNSPECIFIED (12) Hypertension Code(s): I10 - ESSENTIAL (PRIMARY) HYPERTENSION (13) Obesities, morbid Code(s): E66.01 - MORBID (SEVERE) OBESITY DUE TO EXCESS CALORIES Qualifiers: Qualified Code(s): E66.2 - Morbid (severe) obesity with alveolar hypoventilation (14) Respiratory failure with hypoxia and hypercapnia Code(s): J96.91 - RESPIRATORY FAILURE, UNSPECIFIED WITH HYPOXIA J96.92 - RESPIRATORY FAILURE, UNSPECIFIED WITH HYPERCAPNIA Qualifiers: Qualified Code(s): J96.21 - Acute and chronic respiratory failure with hypoxia; J96.22 - Acute and chronic respiratory failure with hypercapnia (15) Shortness of breath Code(s): R06.02 - SHORTNESS OF BREATH (16) Hematoma Code(s): T14.8 - OTHER INJURY OF UNSPECIFIED BODY REGION Visit type - Emergency Visit Emergency Visit: Yes ED Registration Date: 02/18/16 Care time: The patient presented to the Emergency Department on the above date and was hospitalized for further evaluation of their emergent condition. - New Patient This patient is new to me today: No - Critical Care Critical Care patient: No
[2016-03-20] MEDS: TIOTROPIUM BROMIDE 18 MCG/INH (DEVICE W/ 5 CAPSULES) IH SCH (12:08)
[2016-03-20] MEDS: LACTOBACILLUS ACIDOPHILUS 1 EACH TAB (FP) PO SCH (12:09)
--- NOTE | 2016-03-20 12:56 | PN ---
Progress Note, Physician History of Present Illness: patient on bipap urinary retention now with foleys catheter family in room very weak getting blood transfusion - Current Medication List Current Medications: Active Medications Acetaminophen (Tylenol -) 650 mg PO Q6H PRN PRN Reason: FEVER OR PAIN Last Admin: 03/16/16 16:57 Dose: 650 mg Acetylcysteine (Mucomyst 20 Oral / Inh Use Only*) 200 mg NEB BID [facility] Last Admin: 03/20/16 11:00 Dose: 200 mg Albuterol Sulfate (Ventolin 0.083% Nebulizer Soln -) 1 amp NEB Q4H PRN PRN Reason: SHORT OF BREATH/WHEEZING Last Admin: 03/19/16 22:28 Dose: 1 amp Albuterol Sulfate (Ventolin 0.083% Nebulizer Soln -) 1 amp NEB QIDR [facility] Last Admin: 03/20/16 11:00 Dose: 1 amp Amlodipine Besylate (Norvasc -) 10 mg PO DAILY [facility] Last Admin: 03/20/16 10:34 Dose: 10 mg Calcitriol (Rocaltrol -) 0.25 mcg PO DAILY [facility] Last Admin: 03/20/16 10:34 Dose: 0.25 mcg Calcium Acetate (Phoslo -) 1,334 mg PO TIDCM [facility] Last Admin: 03/20/16 12:09 Dose: 1,334 mg Docusate Sodium (Colace -) 100 mg PO BID PRN PRN Reason: CONSTIPATION Last Admin: 03/19/16 23:25 Dose: 100 mg Duloxetine HCl (Cymbalta -) 20 mg PO DAILY [facility] Last Admin: 03/20/16 10:33 Dose: 20 mg Epoetin [place] (Procrit -) 20,000 unit SQ MOWEFR [facility] Last Admin: 03/20/16 11:41 Dose: 20,000 unit Clindamycin Phosphate 300 mg/ (Dextrose) 50 mls @ 104 mls/hr IVPB Q8H-IV [facility] Last Admin: 03/20/16 11:24 Dose: 104 mls/hr Aztreonam 0.5 gm/ Dextrose 50 mls @ 100 mls/hr IVPB Q8H-IV [facility] Last Admin: 03/20/16 10:32 Dose: 100 mls/hr Lactobacillus Acidophilus (Bacid -) 1 tab PO DAILY [facility] Last Admin: 03/20/16 12:09 Dose: 1 tab Morphine Sulfate (Morphine Injection -) 1 mg IVPUSH Q4H PRN PRN Reason: PAIN Pantoprazole Sodium (Protonix -) 40 mg PO DAILY [facility] Last Admin: 03/20/16 10:34 Dose: 40 mg Polyethylene Glycol (Miralax (For Daily Use) -) 17 gm PO DAILY [facility] Last Admin: 03/20/16 10:34 Dose: 17 gm Prednisone (Deltasone -) 20 mg PO DAILY [facility] Last Admin: 03/20/16 10:33 Dose: 20 mg Pregabalin (Lyrica -) 50 mg PO DAILY [facility] Last Admin: 03/20/16 10:33 Dose: 50 mg Tiotropium [place] (Spiriva -) 1 puff IH DAILY [facility] Last Admin: 03/20/16 12:08 Dose: 1 puff Torsemide (Demadex -) 20 mg PO DAILY [facility] Last Admin: 03/20/16 10:33 Dose: 20 mg Zinc Oxide/Panthenol/Vitamin E (Balmex Cream -) 1 applic TP ASDIR PRN PRN Reason: HYGEINE - Objective Vital Signs: Vital Signs Temperature 98.2 F 03/19/16 22:00 Pulse Rate 86 03/20/16 06:51 Respiratory Rate 18 03/20/16 06:40 Blood Pressure 122/67 03/20/16 06:40 O2 Sat by Pulse Oximetry (%) 93 L 03/20/16 11:00 Constitutional: Yes: Calm Cardiovascular: Yes: Regular Rate and Rhythm Respiratory: Yes: Regular, On BiPap, Poor Air Entry, Other Gastrointestinal: Yes: Normal Bowel Sounds, Soft Genitourinary: Yes: Clifford Present Musculoskeletal: Yes: Other Extremities: Yes: Erythema, Other Edema: LLE: 2+, RLE: 2+ Integumentary: Yes: Erythema (improving) Wound/Incision: Yes: Other Neurological: Yes: Other Labs: CBC, BMP 03/20/16 09:20 03/20/16 06:30 INR, PTT INR 1.16 (0.82-1.09) H 03/20/16 09:20 Fibrinogen 547.0 mg/dL (238-498) H 03/17/16 06:30 Assessment/Plan 75 year-old man with a PMH of HTN, PVD, COPD, CKD (baseline Cr 1.9), nephrolithiasis, and chronic LE lymphedema. Admitted in acute renal failure. Acute on chronic renal failure Hyperkalemia Sepsis s Hypertension Peripheral vascular disease Hypercarbic respiratory failure COPD bilateral cellulitis of the legs rsv lung infection pleural effusion anemia plan cellulitis improving continue abx patient being transfused very weak continue close monitoring cx negative so far
--- NOTE | 2016-03-20 13:27 | PN ---
Progress Note (short form) - Note Progress Note: Renal Follow up for KARLOS Pt seen and examined at the bedside continues to have sob requires bipap for prbc transfusion Vital Signs Temperature 98.2 F 03/19/16 22:00 Pulse Rate 86 03/20/16 06:51 Respiratory Rate 18 03/20/16 06:40 Blood Pressure 122/67 03/20/16 06:40 O2 Sat by Pulse Oximetry (%) 93 L 03/20/16 11:00 Intake & Output 03/17/16 03/18/16 03/19/16 03/20/16 23:59 23:59 23:59 23:59 Intake Total 750 450 400 100 Output Total 469 911 8364 400 Balance 325 250 -5100 -300 Gen: NAD CVS: RRR No M/R Lungs: dec BS throughout the lung rey Abd: Soft NT + Mild distension Ext: > 3+ edema, no cyanosis or clubbing CBC, BMP 03/20/16 09:20 03/20/16 06:30 Current Medications Acetaminophen (Tylenol -) 650 mg PO Q6H PRN PRN Reason: FEVER OR PAIN Last Admin: 03/16/16 16:57 Dose: 650 mg Acetylcysteine (Mucomyst 20 Oral / Inh Use Only*) 200 mg NEB BID [facility] Last Admin: 03/20/16 11:00 Dose: 200 mg Albuterol Sulfate (Ventolin 0.083% Nebulizer Soln -) 1 amp NEB Q4H PRN PRN Reason: SHORT OF BREATH/WHEEZING Last Admin: 03/19/16 22:28 Dose: 1 amp Albuterol Sulfate (Ventolin 0.083% Nebulizer Soln -) 1 amp NEB QIDR [facility] Last Admin: 03/20/16 11:00 Dose: 1 amp Amlodipine Besylate (Norvasc -) 10 mg PO DAILY [facility] Last Admin: 03/20/16 10:34 Dose: 10 mg Calcitriol (Rocaltrol -) 0.25 mcg PO DAILY [facility] Last Admin: 03/20/16 10:34 Dose: 0.25 mcg Calcium Acetate (Phoslo -) 1,334 mg PO TIDCM [facility] Last Admin: 03/20/16 12:09 Dose: 1,334 mg Docusate Sodium (Colace -) 100 mg PO BID PRN PRN Reason: CONSTIPATION Last Admin: 03/19/16 23:25 Dose: 100 mg Duloxetine HCl (Cymbalta -) 20 mg PO DAILY [facility] Last Admin: 03/20/16 10:33 Dose: 20 mg Epoetin Keith (Procrit -) 20,000 unit SQ MOWEFR [facility] Last Admin: 03/20/16 11:41 Dose: 20,000 unit Clindamycin Phosphate 300 mg/ (Dextrose) 50 mls @ 104 mls/hr IVPB Q8H-IV [facility] Last Admin: 03/20/16 11:24 Dose: 104 mls/hr Aztreonam 0.5 gm/ Dextrose 50 mls @ 100 mls/hr IVPB Q8H-IV [facility] Last Admin: 03/20/16 10:32 Dose: 100 mls/hr Lactobacillus Acidophilus (Bacid -) 1 tab PO DAILY [facility] Last Admin: 03/20/16 12:09 Dose: 1 tab Morphine Sulfate (Morphine Injection -) 1 mg IVPUSH Q4H PRN PRN Reason: PAIN Pantoprazole Sodium (Protonix -) 40 mg PO DAILY [facility] Last Admin: 03/20/16 10:34 Dose: 40 mg Polyethylene Glycol (Miralax (For Daily Use) -) 17 gm PO DAILY [facility] Last Admin: 03/20/16 10:34 Dose: 17 gm Prednisone (Deltasone -) 20 mg PO DAILY [facility] Last Admin: 03/20/16 10:33 Dose: 20 mg Pregabalin (Lyrica -) 50 mg PO DAILY [facility] Last Admin: 03/20/16 10:33 Dose: 50 mg Tiotropium [place] (Spiriva -) 1 puff IH DAILY [facility] Last Admin: 03/20/16 12:08 Dose: 1 puff Torsemide (Demadex -) 20 mg PO DAILY [facility] Last Admin: 03/20/16 10:33 Dose: 20 mg Zinc Oxide/Panthenol/Vitamin E (Balmex Cream -) 1 applic TP ASDIR PRN PRN Reason: HYGEINE A/P 75 year old Gentleman with PMhx of CKD Stage 3 (baseline Cr 1.9), Hx of Nephrolithiasis, Hypertension, COPD, CHF, PVD, Chronic LE lymph edema who was sent into the ED from wound care for increased lethargy and decreased urination for several days with KARLOS with BUN/Cr of 115/7.2 and K of 6.5 #Acute Renal Failure on CKD stage 3 secondary to ATN BUN/Cr improved from admission however may have had a second insult in setting of LE cellulitis and Sepsis Pt remains non-oliguric on Torsemide Once PRBC is transfused and if renal function w/o significant improvement may warrant [employer] for management of edema/effusions/uremia #Fluid overload/LE edema/Pleural effusions/COPD/RSV Continue Toresemide LEg elevatedion Check weights #LE Cellulitis/Lymphedema/Sepsis On Abx as per ID #Anemia on Procrite 3x weekly Hgb continues to downtrend Check repeat stool occult blood transfuse as per primary team Melvin Johnson DO
--- NOTE | 2016-03-20 13:32 | PN ---
Progress Note (short form) - Note Progress Note: Vascular Surgery Pt seen and examined. Well known from wound care clinic. Pt with bilateral lower ext lymphedema with some cellulitis. Apply silvadene to bilateral lower extremities. Leg elevation. Will follow. Dante Strickland DO
[2016-03-20 14:16] LABS: ANISOCYTOSIS 1+; HYPOCHROMIA 2+; MICROCYTOSIS 1+; OVALOCYTES 2+; POIKILOCYTOSIS 2+
--- NOTE | 2016-03-20 16:01 | PN ---
Progress Note, Physician History of Present Illness: Pt alert. NAd. Dyspnea decreased. Currently on BIPAP and comfortable lying flat - Current Medication List Current Medications: Active Medications Acetaminophen (Tylenol -) 650 mg PO Q6H PRN PRN Reason: FEVER OR PAIN Last Admin: 03/16/16 16:57 Dose: 650 mg Acetylcysteine (Mucomyst 20 Oral / Inh Use Only*) 200 mg NEB BID [facility] Last Admin: 03/20/16 11:00 Dose: 200 mg Albuterol Sulfate (Ventolin 0.083% Nebulizer Soln -) 1 amp NEB Q4H PRN PRN Reason: SHORT OF BREATH/WHEEZING Last Admin: 03/19/16 22:28 Dose: 1 amp Albuterol Sulfate (Ventolin 0.083% Nebulizer Soln -) 1 amp NEB QIDR [facility] Last Admin: 03/20/16 11:00 Dose: 1 amp Amlodipine Besylate (Norvasc -) 10 mg PO DAILY [facility] Last Admin: 03/20/16 10:34 Dose: 10 mg Calcitriol (Rocaltrol -) 0.25 mcg PO DAILY [facility] Last Admin: 03/20/16 10:34 Dose: 0.25 mcg Calcium Acetate (Phoslo -) 1,334 mg PO TIDCM [facility] Last Admin: 03/20/16 12:09 Dose: 1,334 mg Docusate Sodium (Colace -) 100 mg PO BID PRN PRN Reason: CONSTIPATION Last Admin: 03/19/16 23:25 Dose: 100 mg Duloxetine HCl (Cymbalta -) 20 mg PO DAILY [facility] Last Admin: 03/20/16 10:33 Dose: 20 mg Epoetin Keith (Procrit -) 20,000 unit SQ MOWEFR [facility] Last Admin: 03/20/16 11:41 Dose: 20,000 unit Furosemide (Lasix Injection -) 80 mg IVPB ONCE ONE Stop: 03/20/16 17:01 Clindamycin Phosphate 300 mg/ (Dextrose) 50 mls @ 104 mls/hr IVPB Q8H-IV [facility] Last Admin: 03/20/16 11:24 Dose: 104 mls/hr Aztreonam 0.5 gm/ Dextrose 50 mls @ 100 mls/hr IVPB Q8H-IV [facility] Last Admin: 03/20/16 10:32 Dose: 100 mls/hr Lactobacillus Acidophilus (Bacid -) 1 tab PO DAILY [facility] Last Admin: 03/20/16 12:09 Dose: 1 tab Morphine Sulfate (Morphine Injection -) 1 mg IVPUSH Q4H PRN PRN Reason: PAIN Pantoprazole Sodium (Protonix -) 40 mg PO DAILY [facility] Last Admin: 03/20/16 10:34 Dose: 40 mg Polyethylene Glycol (Miralax (For Daily Use) -) 17 gm PO DAILY [facility] Last Admin: 03/20/16 10:34 Dose: 17 gm Prednisone (Deltasone -) 20 mg PO DAILY [facility] Last Admin: 03/20/16 10:33 Dose: 20 mg Pregabalin (Lyrica -) 50 mg PO DAILY [facility] Last Admin: 03/20/16 10:33 Dose: 50 mg Silver Sulfadiazine (Silvadene -) 1 applic TP DAILY [facility] Tiotropium Jeff (Spiriva -) 1 puff IH DAILY [facility] Last Admin: 03/20/16 12:08 Dose: 1 puff Torsemide (Demadex -) 40 mg PO DAILY [facility] Zinc Oxide/Panthenol/Vitamin E (Balmex Cream -) 1 applic TP ASDIR PRN PRN Reason: HYGEINE - Objective Vital Signs: Vital Signs Temperature 98.2 F 03/20/16 15:33 Pulse Rate 86 03/20/16 15:33 Respiratory Rate 20 03/20/16 15:33 Blood Pressure 129/65 03/20/16 15:33 O2 Sat by Pulse Oximetry (%) 96 03/20/16 14:45 Constitutional: Yes: No Distress Eyes: No: Sclera Icterus HENT: Yes: Atraumatic, Normocephalic Neck: Yes: Supple, Trachea Midline Cardiovascular: Yes: Regular Rate and Rhythm. No: JVD Respiratory: Yes: CTA Bilaterally Gastrointestinal: Yes: Soft. No: Tenderness Extremities: Yes: Erythema Edema: Yes Edema: LLE: 4+, RLE: 4+ Neurological: Yes: Alert, Oriented Labs: CBC, BMP 03/20/16 09:20 03/20/16 06:30 INR, PTT INR 1.16 (0.82-1.09) H 03/20/16 09:20 Fibrinogen 547.0 mg/dL (238-498) H 03/17/16 06:30 Problem List - Problems (1) COPD exacerbation Code(s): J44.1 - CHRONIC OBSTRUCTIVE PULMONARY DISEASE W (ACUTE) EXACERBATION (2) Acute and chronic respiratory failure ([id number]) Code(s): J96.20 - ACUTE AND CHR RESP FAILURE, UNSP W HYPOXIA OR HYPERCAPNIA Qualifiers: Qualified Code(s): J96.21 - Acute and chronic respiratory failure with hypoxia (3) Acute kidney failure Code(s): N17.9 - ACUTE KIDNEY FAILURE, UNSPECIFIED Qualifiers: Qualified Code(s): N17.9 - Acute kidney failure, unspecified (4) Chronic kidney disease (CKD) Code(s): N18.9 - CHRONIC KIDNEY DISEASE, UNSPECIFIED Qualifiers: Qualified Code(s): N18.9 - Chronic kidney disease, unspecified (5) Cellulitis Code(s): L03.90 - CELLULITIS, UNSPECIFIED (6) Hyperkalemia Code(s): E87.5 - HYPERKALEMIA (7) Arteriosclerotic heart disease (ASHD) Code(s): I25.10 - ATHSCL HEART DISEASE OF [place] CORONARY ARTERY W/O ANG PCTRS (8) Obesities, morbid Code(s): E66.01 - MORBID (SEVERE) OBESITY DUE TO EXCESS CALORIES Qualifiers: Qualified Code(s): E66.2 - Morbid (severe) obesity with alveolar hypoventilation Assessment/Plan Cellulitis legs COPD Acute on chronic hypercapnic respiratory failure CAD; S/P stents; no chest pain or palpitations. CHF/fluid overload . Pt is s/p right thoracentesis (600 cc) Fluid is transudative Acute Renal Failure Chronic Renal Insufficiency Anemia: being transfused currently Plan: Torsemide Prednisone 20 mg daily inhaled bronchodilator NIPPV nightly Monitor blood counts; transfuse PRN Antibiotics per I.D.
[2016-03-20] MEDS: SILVER SULFADIAZINE 1% TOP CREAM 50 GM JAR TP SCH (16:52)
[2016-03-20] MEDS ORDERED: FUROSEMIDE 40 MG/4 ML INJECTABLE VIAL IVPB ONE (17:00)
--- NOTE | 2016-03-20 17:45 | PN ---
Progress Note (short form) - Note Progress Note: Patient seen and examined feels better Last Vital Signs Temp Pulse Resp BP Pulse Ox 98.2 F 86 20 129/65 96 03/20/16 15:33 03/20/16 15:33 03/20/16 15:33 03/20/16 15:33 03/20/16 14:45 Cor: RSR, No murmurs, No gallops Lungs: decreased at bases Abd: Soft, Normal bowel sounds, No organomegaly Ext: cellulitis/4= venous stasis Abnormal Lab Results 03/17/16 03/18/16 03/20/16 06:30 08:10 06:30 RBC 2.52 L Hgb 6.5 L* D Hct 21.2 L D MCHC 30.7 L RDW 21.7 H Plt Count 46 L INR BUN Creatinine Random Glucose Calcium Magnesium AST Total Protein Albumin Hep-Induced Plt Ab Rapid 0.451 H Crossmatch See Detail 03/20/16 03/20/16 03/20/16 06:30 09:20 09:20 RBC 2.59 L Hgb 6.7 L* Hct 21.6 L MCHC 31.1 L RDW 21.4 H Plt Count 42 L INR 1.16 H BUN 133 H* Creatinine 3.9 H Random Glucose 108 H D Calcium 7.8 L Magnesium 2.6 H AST 14 L D Total Protein 4.7 L Albumin 2.0 L Hep-Induced Plt Ab Rapid Crossmatch Current Medications Acetaminophen (Tylenol -) 650 mg PO Q6H PRN PRN Reason: FEVER OR PAIN Last Admin: 03/16/16 16:57 Dose: 650 mg Acetylcysteine (Mucomyst 20 Oral / Inh Use Only*) 200 mg NEB BID [facility] Last Admin: 03/20/16 11:00 Dose: 200 mg Albuterol Sulfate (Ventolin 0.083% Nebulizer Soln -) 1 amp NEB Q4H PRN PRN Reason: SHORT OF BREATH/WHEEZING Last Admin: 03/19/16 22:28 Dose: 1 amp Albuterol Sulfate (Ventolin 0.083% Nebulizer Soln -) 1 amp NEB QIDR [facility] Last Admin: 03/20/16 11:00 Dose: 1 amp Amlodipine Besylate (Norvasc -) 10 mg PO DAILY [facility] Last Admin: 03/20/16 10:34 Dose: 10 mg Calcitriol (Rocaltrol -) 0.25 mcg PO DAILY [facility] Last Admin: 03/20/16 10:34 Dose: 0.25 mcg Calcium Acetate (Phoslo -) 1,334 mg PO TIDCM [facility] Last Admin: 03/20/16 16:52 Dose: 1,334 mg Docusate Sodium (Colace -) 100 mg PO BID PRN PRN Reason: CONSTIPATION Last Admin: 03/19/16 23:25 Dose: 100 mg Duloxetine HCl (Cymbalta -) 20 mg PO DAILY [facility] Last Admin: 03/20/16 10:33 Dose: 20 mg Epoetin Keith (Procrit -) 20,000 unit SQ MOWEFR [facility] Last Admin: 03/20/16 11:41 Dose: 20,000 unit Clindamycin Phosphate 300 mg/ (Dextrose) 50 mls @ 104 mls/hr IVPB Q8H-IV [facility] Last Admin: 03/20/16 17:48 Dose: 104 mls/hr Aztreonam 0.5 gm/ Dextrose 50 mls @ 100 mls/hr IVPB Q8H-IV [facility] Last Admin: 03/20/16 17:23 Dose: 100 mls/hr Lactobacillus Acidophilus (Bacid -) 1 tab PO DAILY [facility] Last Admin: 03/20/16 12:09 Dose: 1 tab Morphine Sulfate (Morphine Injection -) 1 mg IVPUSH Q4H PRN PRN Reason: PAIN Pantoprazole Sodium (Protonix -) 40 mg PO DAILY [facility] Last Admin: 03/20/16 10:34 Dose: 40 mg Polyethylene Glycol (Miralax (For Daily Use) -) 17 gm PO DAILY [facility] Last Admin: 03/20/16 10:34 Dose: 17 gm Prednisone (Deltasone -) 20 mg PO DAILY [facility] Last Admin: 03/20/16 10:33 Dose: 20 mg Pregabalin (Lyrica -) 50 mg PO DAILY [facility] Last Admin: 03/20/16 10:33 Dose: 50 mg Silver Sulfadiazine (Silvadene -) 1 applic TP DAILY [facility] Last Admin: 03/20/16 16:52 Dose: 1 appful Tiotropium Star (Spiriva -) 1 puff IH DAILY [facility] Last Admin: 03/20/16 12:08 Dose: 1 puff Torsemide (Demadex -) 40 mg PO DAILY [facility] Zinc Oxide/Panthenol/Vitamin E (Balmex Cream -) 1 applic TP ASDIR PRN PRN Reason: HYGEINE a/P 75 y/o patient with morbid obesity, CAD, COPD, CHF,pleural effusions, KARLOS on CKD, RSV infection now with worsening cellulitis s/p thoracentesis 03/07 We have been consulted for worsening thrombocytopenia Suspect worsening cellulitis/infection/ given low garde fevers aswell. Unlikely HIT--last exposuree 02/17-02/22 --time frame and clinical scenario make it less likely suspect false + HIT --borderline--serotonin release assay pending also with anemia of chronic disease due to CKD. iron studies s/o anemia of chronic disease but stool occult + transfuse PRBCs for hgb <7 on procrit Ferritin 189 ? GI consult started protonix discussed with at bed side
[2016-03-20] MEDS: ARFORMOTEROL TARTRATE 15 MCG/2 ML VIAL NEB SCH (21:00)
[2016-03-21] MEDS ORDERED: PT OWN MED DRAWER 7, Y5N ONE ×7 (02:44→18:01)
[2016-03-21] MEDS: AZTREONAM 0.5 GM in DEXTROSE 5%-WATER - 50 ML IVPB SCH ×3 (02:52→17:51)
[2016-03-21] MEDS: CLINDAMYCIN IVPB 300 MG in DEXTROSE 5%-WATER - 48 ML IVPB SCH ×3 (02:52→18:33)
[2016-03-21 08:35] LABS: MCH 26.7 pg (25.7-33.7); MCHC 32.1 g/dl (32.0-35.9); MEAN CELL VOLUME 83.3 fl (80-96); MEAN PLT VOLUME 10.2 fl (7.5-11.1); PLATELET COUNT 50 K/MM3 (134-434); RDW 20.4 % (11.9-15.9); WHITE BLOOD COUNT 4.8 K/mm3 (4.0-10.0)
[2016-03-21] MEDS: CALCIUM ACETATE 667 MG CAPSULE (FP) PO SCH ×3 (08:52→17:51)
[2016-03-21] MEDS: SODIUM CHLORIDE NASAL SPRAY 44 ML BOTTLE NS PRN (08:52)
--- NOTE | 2016-03-21 09:11 | PN ---
Progress Note, Physician Chief Complaint: denies chest pain - Current Medication List Current Medications: Active Medications Acetaminophen (Tylenol -) 650 mg PO Q6H PRN PRN Reason: FEVER OR PAIN Last Admin: 03/16/16 16:57 Dose: 650 mg Acetylcysteine (Mucomyst 20 Oral / Inh Use Only*) 200 mg NEB BID [facility] Last Admin: 03/20/16 21:00 Dose: 200 mg Amlodipine Besylate (Norvasc -) 10 mg PO DAILY [facility] Last Admin: 03/20/16 10:34 Dose: 10 mg Arformoterol Tartrate (Brovana (Restricted To Pulmonology/Resp) -) 1 amp NEB BID [facility] Last Admin: 03/20/16 21:00 Dose: 1 amp Calcitriol (Rocaltrol -) 0.25 mcg PO DAILY [facility] Last Admin: 03/20/16 10:34 Dose: 0.25 mcg Calcium Acetate (Phoslo -) 1,334 mg PO TIDCM [facility] Last Admin: 03/21/16 08:52 Dose: 1,334 mg Docusate Sodium (Colace -) 100 mg PO BID PRN PRN Reason: CONSTIPATION Last Admin: 03/19/16 23:25 Dose: 100 mg Duloxetine HCl (Cymbalta -) 20 mg PO DAILY [facility] Last Admin: 03/20/16 10:33 Dose: 20 mg Epoetin Keith (Procrit -) 20,000 unit SQ MOWEFR [facility] Last Admin: 03/20/16 11:41 Dose: 20,000 unit Clindamycin Phosphate 300 mg/ (Dextrose) 50 mls @ 104 mls/hr IVPB Q8H-IV [facility] Last Admin: 03/21/16 02:52 Dose: 104 mls/hr Aztreonam 0.5 gm/ Dextrose 50 mls @ 100 mls/hr IVPB Q8H-IV [facility] Last Admin: 03/21/16 02:52 Dose: 100 mls/hr Lactobacillus Acidophilus (Bacid -) 1 tab PO DAILY [facility] Last Admin: 03/20/16 12:09 Dose: 1 tab Morphine Sulfate (Morphine Injection -) 1 mg IVPUSH Q4H PRN PRN Reason: PAIN Pantoprazole Sodium (Protonix -) 40 mg PO DAILY [facility] Last Admin: 03/20/16 10:34 Dose: 40 mg Polyethylene Glycol (Miralax (For Daily Use) -) 17 gm PO DAILY [facility] Last Admin: 03/20/16 10:34 Dose: 17 gm Prednisone (Deltasone -) 20 mg PO DAILY [facility] Last Admin: 03/20/16 10:33 Dose: 20 mg Pregabalin (Lyrica -) 50 mg PO DAILY [facility] Last Admin: 03/20/16 10:33 Dose: 50 mg Silver Sulfadiazine (Silvadene -) 1 applic TP DAILY [facility] Last Admin: 03/20/16 16:52 Dose: 1 appful Sodium Chloride ([employer] [place] Nasal [place] -) 2 spray NS BID PRN PRN Reason: NASAL CONGESTION Last Admin: 03/21/16 08:52 Dose: 2 spray Tiotropium [place] (Spiriva -) 1 puff IH DAILY [facility] Last Admin: 03/20/16 12:08 Dose: 1 puff Torsemide (Demadex -) 40 mg PO DAILY [facility] Zinc Oxide/Panthenol/Vitamin E (Balmex Cream -) 1 applic TP ASDIR PRN PRN Reason: HYGEINE - Objective Vital Signs: Vital Signs Temperature 98.3 F 03/21/16 08:22 Pulse Rate 86 03/21/16 08:22 Respiratory Rate 24 03/21/16 08:22 Blood Pressure 141/54 03/21/16 08:22 O2 Sat by Pulse Oximetry (%) 94 L 03/20/16 22:00 Eyes: Yes: Conjunctiva Clear Cardiovascular: Yes: Regular Rate and Rhythm Respiratory: Yes: Other (decreased breath sounds b/l) Gastrointestinal: Yes: Soft, Abdomen, Obese Edema: Yes Edema: LLE: 2+, RLE: 2+ Neurological: Yes: Alert Labs: CBC, BMP 03/21/16 06:30 INR, PTT INR 1.16 (0.82-1.09) H 03/20/16 09:20 Fibrinogen 547.0 mg/dL (238-498) H 03/17/16 06:30 Laboratory Tests 03/20/16 03/21/16 06:30 06:30 WBC 4.8 Hgb 8.0 L D Plt Count 50 L Potassium 4.2 BUN 133 H* Creatinine 3.9 H Assessment/Plan Assessment/Plan Worsening thrombocytopenia of unclear etiology Acute on chronic renal failure Low grade fevers CAD Chronic diastolic CHF RSV lung infection REC: Transfusional support as needed. Monitor creat, bun, k antiplatelet Rx has been on hold for thoracentesis and thrombocytopenia and anemia Palliative care follow up Guarded prognosis.
[2016-03-21] MEDS: morphine CARPU-JECT 2 MG/1 ML DISP.SYRIN IVPUSH PRN ×3 (09:12→22:00)
[2016-03-21 09:19] LABS: ALBUMIN 2.2 g/dl (3.4-5.0); BILIRUBIN,TOTAL 0.6 mg/dL (0.2-1.0); CALCIUM 7.9 mg/dL (8.5-10.1); CREATININE 3.7 mg/dL (0.7-1.3); TOT PROT 4.9 g/dl (6.4-8.2)
[2016-03-21] MEDS: ARFORMOTEROL TARTRATE 15 MCG/2 ML VIAL NEB SCH ×2 (10:06→23:00)
[2016-03-21] MEDS: ACETYLCYSTEINE 20% 200MG/ML 4 ML VIAL *FOR ORAL / INH USE ONLY NEB SCH ×2 (10:06→23:00)
[2016-03-21] MEDS: TIOTROPIUM BROMIDE 18 MCG/INH (DEVICE W/ 5 CAPSULES) IH SCH (11:21)
[2016-03-21] MEDS: DULoxetine HCL 20 MG CAPSULE.DR (FP) PO SCH (11:21)
[2016-03-21] MEDS: amLODIPine BESYLATE 10 MG TABLET (FP) PO SCH (11:22)
[2016-03-21] MEDS: CALCITRIOL 0.25 MCG CAPSULE (FP) PO SCH (11:22)
[2016-03-21] MEDS: PANTOPRAZOLE 40 MG TABLET (FP) PO SCH (11:22)
[2016-03-21] MEDS: LACTOBACILLUS ACIDOPHILUS 1 EACH TAB (FP) PO SCH (11:22)
[2016-03-21] MEDS: TORSEMIDE 20 MG TABLET (FP) PO SCH (11:22)
[2016-03-21] MEDS: predniSONE 20 MG TABLET (UD) PO SCH (11:23)
[2016-03-21] MEDS: SILVER SULFADIAZINE 1% TOP CREAM 50 GM JAR TP SCH (11:25)
--- NOTE | 2016-03-21 13:13 | PN ---
Progress Note (short form) - Note Progress Note: Renal Follow up for KARLOS Pt seen and examined at the bedside on bipap continues to have sob for thoracentesis today legs remain very swollen Vital Signs Temperature 98.3 F 03/21/16 08:22 Pulse Rate 86 03/21/16 08:22 Respiratory Rate 24 03/21/16 08:22 Blood Pressure 141/54 03/21/16 08:22 O2 Sat by Pulse Oximetry (%) 94 L 03/21/16 10:30 Intake & Output 03/18/16 03/19/16 03/20/16 03/21/16 23:59 23:59 23:59 23:59 Intake Total 046 300 9163 100 Output Total 200 5500 800 1400 Balance 250 -5100 750 -1300 Gen: NAD CVS: RRR No M/R Lungs: dec BS throughout the lung rey Abd: Soft NT + Mild distension Ext: > 3+ edema, no cyanosis or clubbing CBC, BMP 03/21/16 06:30 03/21/16 06:30 Current Medications Acetaminophen (Tylenol -) 650 mg PO Q6H PRN PRN Reason: FEVER OR PAIN Last Admin: 03/16/16 16:57 Dose: 650 mg Acetylcysteine (Mucomyst 20 Oral / Inh Use Only*) 200 mg NEB BID [facility] Last Admin: 03/21/16 10:06 Dose: 200 mg Amlodipine Besylate (Norvasc -) 10 mg PO DAILY [facility] Last Admin: 03/21/16 11:22 Dose: 10 mg Arformoterol Tartrate (Brovana (Restricted To Pulmonology/Resp) -) 1 amp NEB BID [facility] Last Admin: 03/21/16 10:06 Dose: 1 amp Calcitriol (Rocaltrol -) 0.25 mcg PO DAILY [facility] Last Admin: 03/21/16 11:22 Dose: 0.25 mcg Calcium Acetate (Phoslo -) 1,334 mg PO TIDCM [facility] Last Admin: 03/21/16 11:23 Dose: 1,334 mg Docusate Sodium (Colace -) 100 mg PO BID PRN PRN Reason: CONSTIPATION Last Admin: 03/19/16 23:25 Dose: 100 mg Duloxetine HCl (Cymbalta -) 20 mg PO DAILY [facility] Last Admin: 03/21/16 11:21 Dose: 20 mg Epoetin Keith (Procrit -) 20,000 unit SQ MOWEFR [facility] Last Admin: 03/20/16 11:41 Dose: 20,000 unit Clindamycin Phosphate 300 mg/ (Dextrose) 50 mls @ 104 mls/hr IVPB Q8H-IV [facility] Last Admin: 03/21/16 02:52 Dose: 104 mls/hr Aztreonam 0.5 gm/ Dextrose 50 mls @ 100 mls/hr IVPB Q8H-IV [facility] Last Admin: 03/21/16 11:08 Dose: 100 mls/hr Lactobacillus Acidophilus (Bacid -) 1 tab PO DAILY [facility] Last Admin: 03/21/16 11:22 Dose: 1 tab Morphine Sulfate (Morphine Injection -) 1 mg IVPUSH Q4H PRN PRN Reason: PAIN Last Admin: 03/21/16 09:12 Dose: 1 mg Pantoprazole Sodium (Protonix -) 40 mg PO DAILY [facility] Last Admin: 03/21/16 11:22 Dose: 40 mg Polyethylene Glycol (Miralax (For Daily Use) -) 17 gm PO DAILY [facility] Last Admin: 03/20/16 10:34 Dose: 17 gm Prednisone (Deltasone -) 20 mg PO DAILY [facility] Last Admin: 03/21/16 11:23 Dose: 20 mg Silver Sulfadiazine (Silvadene -) 1 applic TP DAILY [facility] Last Admin: 03/21/16 11:25 Dose: 1 appful Sodium Chloride ([place] Nasal [place] -) 2 spray NS BID PRN PRN Reason: NASAL CONGESTION Last Admin: 03/21/16 08:52 Dose: 2 spray Tiotropium [place] (Spiriva -) 1 puff IH DAILY [facility] Last Admin: 03/21/16 11:21 Dose: 1 puff Torsemide (Demadex -) 40 mg PO DAILY [facility] Last Admin: 03/21/16 11:22 Dose: 40 mg Zinc Oxide/Panthenol/Vitamin E (Balmex Cream -) 1 applic TP ASDIR PRN PRN Reason: HYGEINE A/P 75 year old Gentleman with PMhx of CKD Stage 3 (baseline Cr 1.9), Hx of Nephrolithiasis, Hypertension, COPD, CHF, PVD, Chronic LE lymph edema who was sent into the ED from wound care for increased lethargy and decreased urination for several days with KARLOS with BUN/Cr of 115/7.2 and K of 6.5 #Acute Renal Failure on CKD stage 3 secondary to ATN Renal function is overall improved and stable however pt has difficult to manage volume overload and high bun despite discontinuation of steroids spoke to pt about possible hemodialysis for volume mangement and both pt and are agreeable but did want to think bout it some more If agreeable will plan to have permacath insertion tomorrow or the day after continue Toresemide 40mg Daily #Fluid overload/LE edema/Pleural effusions/COPD/RSV Thoracentesis today Continue Toresemide LEg elevatedion Check weights #LE Cellulitis/Lymphedema/Sepsis On Abx as per ID #Anemia on Procrit 3x weekly Transfuse as needed Melvin Johnson DO
--- NOTE | 2016-03-21 13:42 | PN ---
Physical Exam: SUBJECTIVE: Patient seen and examined at bedside. On bipap overnight and in the morning at time of interview. He states he feels well and has no complaints at this time. Is agreeable for thoracentesis today. OBJECTIVE: Vital Signs Temperature 98.3 F 03/21/16 08:22 Pulse Rate 86 03/21/16 08:22 Respiratory Rate 24 03/21/16 08:22 Blood Pressure 141/54 03/21/16 08:22 O2 Sat by Pulse Oximetry (%) 94 L 03/21/16 10:30 GENERAL: The patient is awake, alert, and fully oriented, on bipap. HEAD: Normal with no signs of trauma. EYES: extraocular movements intact, sclera anicteric, conjunctiva clear. No ptosis. NECK: Trachea midline, full range of motion, supple. LUNGS: Auscultated anteriorly, diminished breath sounds, clear to auscultation bilaterally, no wheezes, no crackles, no accessory muscle use. HEART: Regular rate and rhythm, S1, S2 without murmur, rub or gallop. ABDOMEN: Soft, obese, nontender, nondistended, normoactive bowel sounds, no guarding, no rebound, no hepatosplenomegaly, no masses. EXTREMITIES: warm, well-perfused, B/L cellulitic changes, B/L LE 3+ pitting edema and alvarado crusted lesions. NEUROLOGICAL: Normal speech, gait not observed. PSYCH: Normal mood, normal affect. SKIN: Warm, dry Laboratory Results - last 24 hr 03/18/16 03/20/16 03/21/16 08:10 06:30 06:30 WBC 4.8 RBC 3.00 L Hgb 8.0 L D Hct 25.0 L D MCV 83.3 MCHC 32.1 RDW 20.4 H Plt Count 50 L MPV 10.2 Hypochromic-Microcytic 2+ Poikilocytosis 2+ Anisocytosis 1+ Microcytosis 1+ Ovalocytes 2+ Rouleaux 2+ Morphology Comment Slide scanned Sodium Potassium Chloride Carbon Dioxide Anion Gap BUN Creatinine Creat Clearance w eGFR Random Glucose Calcium Total Bilirubin AST ALT Alkaline Phosphatase Total Protein Albumin Blood Type A POSITIVE Antibody Screen Negative Crossmatch See Detail 03/21/16 06:30 WBC RBC Hgb Hct MCV MCHC RDW Plt Count MPV Hypochromic-Microcytic Poikilocytosis Anisocytosis Microcytosis Ovalocytes Rouleaux Morphology Comment Sodium 144 Potassium 4.1 Chloride 104 Carbon Dioxide 30 Anion Gap 10 BUN 143 H* Creatinine 3.7 H Creat Clearance w eGFR 16.18 Random Glucose 111 H Calcium 7.9 L Total Bilirubin 0.6 D AST 16 ALT 31 Alkaline Phosphatase 113 Total Protein 4.9 L Albumin 2.2 L Blood Type Antibody Screen Crossmatch Microbiology 03/16/16 18:40 Blood - Peripheral Venous Blood Culture - Preliminary NO GROWTH OBTAINED AFTER 96 HOURS, INCUBATION TO CONTINUE FOR 1 DAYS. 03/16/16 18:40 Blood - Peripheral Venous Blood Culture - Preliminary NO GROWTH OBTAINED AFTER 96 HOURS, INCUBATION TO CONTINUE FOR 1 DAYS. 03/13/16 18:30 Blood - Peripheral Venous Blood Culture - Final NO GROWTH AFTER 5 DAYS INCUBATION 03/13/16 18:30 Blood - Peripheral Venous Blood Culture - Final NO GROWTH AFTER 5 DAYS INCUBATION 03/08/16 10:15 Blood - Peripheral Venous Blood Culture - Final NO GROWTH AFTER 5 DAYS INCUBATION 03/08/16 10:15 Blood - Peripheral Venous Blood Culture - Final NO GROWTH AFTER 5 DAYS INCUBATION 03/07/16 15:30 Pleural Fluid Gram Stain - Final 03/07/16 15:30 Pleural Fluid Body Fluid Culture - Final NO GROWTH OF AEROBIC ORGANISMS AFTER 48 HOURS INCUBATION 03/07/16 15:30 Pleural Fluid Anaerobic Culture - Final NO ANAEROBES WERE ISOLATED 03/07/16 15:30 Pleural Fluid AFB Smear Concentration - Final 03/07/16 15:30 Pleural Fluid Mycobacterial Culture - Preliminary 03/07/16 15:30 Pleural Fluid ALANA Preparation - Preliminary 03/07/16 15:30 Pleural Fluid Fungal Culture - Preliminary 02/29/16 17:40 Nasopharyngeal Swab Respiratory Virus Panel - Final 02/25/16 17:30 Blood - Peripheral Venous Blood Culture - Final NO GROWTH AFTER 5 DAYS INCUBATION 02/25/16 17:30 Blood - Peripheral Venous Blood Culture - Final NO GROWTH AFTER 5 DAYS INCUBATION 02/28/16 17:40 Nasopharyngeal Swab Influenza Types A,B Antigen (TONI) - Final 02/28/16 17:40 Nasopharyngeal Swab - Final 02/26/16 06:45 Urine - Urine Clean Catch Urine Culture - Final NO GROWTH OBTAINED 02/18/16 19:15 Blood - Peripheral Venous Blood Culture - Final NO GROWTH AFTER 5 DAYS INCUBATION 02/18/16 19:15 Blood - Peripheral Venous Blood Culture - Final NO GROWTH AFTER 5 DAYS INCUBATION 02/18/16 18:10 Urine - Urine Clean Catch Urine Culture - Final NO GROWTH OBTAINED Active Medications Generic Name Dose Route Start Last Admin Trade Name Freq PRN Reason Stop Dose Admin Acetaminophen 650 mg 03/09/16 16:50 03/16/16 16:57 Tylenol - PO 650 mg Q6H PRN Administration FEVER OR PAIN Acetylcysteine 200 mg 02/26/16 10:00 03/21/16 10:06 Mucomyst 20 Oral / Inh Use Only* NEB 200 mg BID LESLEE Administration Amlodipine Besylate 10 mg 03/11/16 08:30 03/21/16 11:22 Norvasc - PO 10 mg DAILY LESLEE Administration Arformoterol Tartrate 1 amp 03/20/16 22:45 03/21/16 10:06 Brovana (Restricted To Pulmonology/Resp) - NEB 1 amp BID LESLEE Administration Calcitriol 0.25 mcg 02/24/16 12:45 03/21/16 11:22 Rocaltrol - PO 0.25 mcg DAILY LESLEE Administration Calcium Acetate 1,334 mg 03/12/16 12:00 03/21/16 11:23 Phoslo - PO 1,334 mg TIDCM LESLEE Administration Docusate Sodium 100 mg 03/10/16 17:34 03/19/16 23:25 Colace - PO 100 mg BID PRN Administration CONSTIPATION Duloxetine HCl 20 mg 02/24/16 10:00 03/21/16 11:21 Cymbalta - PO 20 mg DAILY LESLEE Administration Epoetin Keith 20,000 unit 03/15/16 10:00 03/20/16 11:41 Procrit - SQ 20,000 unit MOWEFR LESLEE Administration Clindamycin Phosphate 300 mg/ 50 mls @ 104 mls/hr 03/16/16 18:00 03/21/16 13:27 Dextrose IVPB 104 mls/hr Q8H-IV LESLEE Administration Aztreonam 0.5 gm/ Dextrose 50 mls @ 100 mls/hr 03/16/16 18:00 03/21/16 11:08 IVPB 100 mls/hr Q8H-IV LESLEE Administration Lactobacillus Acidophilus 1 tab 03/20/16 11:30 03/21/16 11:22 Bacid - PO 1 tab DAILY LESLEE Administration Morphine Sulfate 1 mg 03/20/16 10:43 03/21/16 13:25 Morphine Injection - IVPUSH 1 mg Q4H PRN Administration PAIN Pantoprazole Sodium 40 mg 03/20/16 10:00 03/21/16 11:22 Protonix - PO 40 mg DAILY LESLEE Administration Polyethylene Glycol 17 gm 03/18/16 10:45 03/20/16 10:34 Miralax (For Daily Use) - PO 17 gm DAILY LESLEE Administration Prednisone 20 mg 03/18/16 10:00 03/21/16 11:23 Deltasone - PO 20 mg DAILY LESLEE Administration Silver Sulfadiazine 1 applic 03/20/16 13:30 03/21/16 11:25 Silvadene - TP 1 appful DAILY L[facility]LEE Administration Sodium Chloride 2 spray 03/21/16 08:29 03/21/16 08:52 [place] Nasal [place] - NS 2 spray BID PRN Administration NASAL CONGESTION Tiotropium [place] 1 puff 02/22/16 11:15 03/21/16 11:21 Spiriva - IH 1 puff DAILY L[facility]E Administration Torsemide 40 mg 03/21/16 10:00 03/21/16 11:22 Demadex - PO 40 mg DAILY LESLEE Administration Zinc Oxide/Panthenol/Vitamin E 1 applic 03/19/16 12:41 Balmex Cream - TP ASDIR PRN HYGEINE ASSESSMENT/PLAN: 75 year-old man with a PMH of HTN, PVD, COPD, CKD (baseline Cr 1.9), nephrolithiasis, and chronic LE lymphedema. Admitted for acute renal failure ( hyperkalemia) and respiratory distress. #Acute Anemia -Hgb 8.0 today, s/p 2 units yesterday (s/p 4 units total this admission) -FOBT positive # Acute on chronic renal failure -limit fluid intake to 1L per day due to SOB. -143/3.7 today (baseline 1.8-1.9) -c/w torsemide 40 mg po qd -Pt agreeable to permacath placement for dialysis. Scheduled for tomorrow. Will reassess again tomorrow but on schedule for tomorrow. -NPO after midnight # Acute COPD exacerbation with hypercapnic respiratory failure -Used bipap last night -SOB improved today but on bipap. -brovana, albuterol neb q4h PRN, albuterol neb standing qid -prednisone 20 mg PO qd (day 4 today at 20 mg) -bipap as necessary -on BiPap currently #SOB -Resp virus panel (02/28) - RSV positive - can remove droplet precautions. -diuresis with torsemide 20 mg po qd -s/p R thoracentesis. 800 cc fluid removed. -fluid analysis: WBC 232, RBC: 1940, total protein: 2.184, LDH: 91.591, glucose: 215.755, amylase 8.508. -BiPap use at night. -thoracentesis today on L side - held ASA and prasugrel (was held for more than 5 days total before thoracentesis) -CXR for tomorrow #Cellulitis of B/L LE -improving -clindamycin 300 mg IV q8 (day 4) -aztreonam 0.5 g IV q8 (day 4) # Constipation -If required, can give mineral oil enema # Anemia, microcytic -Anemia of chronic disease secondary to CKD -Hgb 8 (s/p 4 unit PRBC this admission); -Epoetin 20,000 units SQ MWF # HTN -goal systolic BP 120-140 -norvasc 10 mg po qd # CHF (diastolic) -torsemide 40 mg qd # Hx of Depression -c/w cymbalta 20mg #Neuropathy -lyrica 50 mg PO qd # CAD -prasugrel 10 mg PO qd, on hold for now for thoracentesis -continue prasugrel until 04/2016 #. FEN -hypocalcemia -c/w calcitriol - f/u BMP -NPO after midnight for permacath placement # Dispo: monitor on floors. Continue PT. L thoracentesis not done today. palliative care. Low threshold for ICU. Problem List - Problems (1) Acute kidney failure Code(s): N17.9 - ACUTE KIDNEY FAILURE, UNSPECIFIED Qualifiers: Qualified Code(s): N17.9 - Acute kidney failure, unspecified (2) COPD exacerbation Code(s): J44.1 - CHRONIC OBSTRUCTIVE PULMONARY DISEASE W (ACUTE) EXACERBATION (3) Hyperkalemia Code(s): E87.5 - HYPERKALEMIA (4) Acute and chronic respiratory failure (mmbuv-ab-gjrggto) Code(s): J96.20 - ACUTE AND CHR RESP FAILURE, UNSP W HYPOXIA OR HYPERCAPNIA Qualifiers: Qualified Code(s): J96.21 - Acute and chronic respiratory failure with hypoxia (5) Acute exacerbation of chronic obstructive pulmonary disease (COPD) Code(s): J44.1 - CHRONIC OBSTRUCTIVE PULMONARY DISEASE W (ACUTE) EXACERBATION (6) Acute on chronic diastolic (congestive) heart failure Code(s): I50.33 - ACUTE ON CHRONIC DIASTOLIC (CONGESTIVE) HEART FAILURE (7) Anxiety and depression Code(s): F41.9 - ANXIETY DISORDER, UNSPECIFIED F32.9 - MAJOR DEPRESSIVE DISORDER, SINGLE EPISODE, UNSPECIFIED (8) Cellulitis Code(s): L03.90 - CELLULITIS, UNSPECIFIED (9) Chronic kidney disease (CKD) Code(s): N18.9 - CHRONIC KIDNEY DISEASE, UNSPECIFIED Qualifiers: Qualified Code(s): N18.9 - Chronic kidney disease, unspecified (10) Diastolic CHF Code(s): I50.30 - UNSPECIFIED DIASTOLIC (CONGESTIVE) HEART FAILURE (11) Hyperlipidemia Code(s): E78.5 - HYPERLIPIDEMIA, UNSPECIFIED (12) Hypertension Code(s): I10 - ESSENTIAL (PRIMARY) HYPERTENSION (13) Obesities, morbid Code(s): E66.01 - MORBID (SEVERE) OBESITY DUE TO EXCESS CALORIES Qualifiers: Qualified Code(s): E66.2 - Morbid (severe) obesity with alveolar hypoventilation (14) Respiratory failure with hypoxia and hypercapnia Code(s): J96.91 - RESPIRATORY FAILURE, UNSPECIFIED WITH HYPOXIA J96.92 - RESPIRATORY FAILURE, UNSPECIFIED WITH HYPERCAPNIA Qualifiers: Qualified Code(s): J96.21 - Acute and chronic respiratory failure with hypoxia; J96.22 - Acute and chronic respiratory failure with hypercapnia (15) Shortness of breath Code(s): R06.02 - SHORTNESS OF BREATH (16) Hematoma Code(s): T14.8 - OTHER INJURY OF UNSPECIFIED BODY REGION Visit type - Emergency Visit Emergency Visit: Yes ED Registration Date: 02/18/16 Care time: The patient presented to the Emergency Department on the above date and was hospitalized for further evaluation of their emergent condition. - New Patient This patient is new to me today: No - Critical Care Critical Care patient: No
[2016-03-21] MEDS: PREGABALIN 50 MG CAPSULE PO SCH ×2 (14:17→15:20)
--- NOTE | 2016-03-21 14:18 | PN ---
Progress Note, Physician History of Present Illness: Pt is S/P thoracentesis (600cc). NAD. Currently off BIPAP - Current Medication List Current Medications: Active Medications Acetaminophen (Tylenol -) 650 mg PO Q6H PRN PRN Reason: FEVER OR PAIN Last Admin: 03/16/16 16:57 Dose: 650 mg Acetylcysteine (Mucomyst 20 Oral / Inh Use Only*) 200 mg NEB BID [facility] Last Admin: 03/21/16 10:06 Dose: 200 mg Amlodipine Besylate (Norvasc -) 10 mg PO DAILY [facility]E Last Admin: 03/21/16 11:22 Dose: 10 mg Arformoterol Tartrate (Brovana (Restricted To Pulmonology/Resp) -) 1 amp NEB BID [facility] Last Admin: 03/21/16 10:06 Dose: 1 amp Calcitriol (Rocaltrol -) 0.25 mcg PO DAILY [facility] Last Admin: 03/21/16 11:22 Dose: 0.25 mcg Calcium Acetate (Phoslo -) 1,334 mg PO TIDCM [facility] Last Admin: 03/21/16 11:23 Dose: 1,334 mg Docusate Sodium (Colace -) 100 mg PO BID PRN PRN Reason: CONSTIPATION Last Admin: 03/19/16 23:25 Dose: 100 mg Duloxetine HCl (Cymbalta -) 20 mg PO DAILY [facility] Last Admin: 03/21/16 11:21 Dose: 20 mg Epoetin Keith (Procrit -) 20,000 unit SQ MOWEFR [facility] Last Admin: 03/20/16 11:41 Dose: 20,000 unit Clindamycin Phosphate 300 mg/ (Dextrose) 50 mls @ 104 mls/hr IVPB Q8H-IV [facility] Last Admin: 03/21/16 13:27 Dose: 104 mls/hr Aztreonam 0.5 gm/ Dextrose 50 mls @ 100 mls/hr IVPB Q8H-IV [facility] Last Admin: 03/21/16 11:08 Dose: 100 mls/hr Lactobacillus Acidophilus (Bacid -) 1 tab PO DAILY [facility] Last Admin: 03/21/16 11:22 Dose: 1 tab Morphine Sulfate (Morphine Injection -) 1 mg IVPUSH Q4H PRN PRN Reason: PAIN Last Admin: 03/21/16 13:25 Dose: 1 mg Pantoprazole Sodium (Protonix -) 40 mg PO DAILY [facility] Last Admin: 03/21/16 11:22 Dose: 40 mg Polyethylene Glycol (Miralax (For Daily Use) -) 17 gm PO DAILY [facility] Last Admin: 03/20/16 10:34 Dose: 17 gm Prednisone (Deltasone -) 20 mg PO DAILY [facility] Last Admin: 03/21/16 11:23 Dose: 20 mg Pregabalin (Lyrica -) 50 mg PO DAILY [facility] Silver Sulfadiazine (Silvadene -) 1 applic TP DAILY [facility] Last Admin: 03/21/16 11:25 Dose: 1 appful Sodium Chloride ([place] Nasal [place] -) 2 spray NS BID PRN PRN Reason: NASAL CONGESTION Last Admin: 03/21/16 08:52 Dose: 2 spray Tiotropium [place] (Spiriva -) 1 puff IH DAILY [facility] Last Admin: 03/21/16 11:21 Dose: 1 puff Torsemide (Demadex -) 40 mg PO DAILY [facility] Last Admin: 03/21/16 11:22 Dose: 40 mg Zinc Oxide/Panthenol/Vitamin E (Balmex Cream -) 1 applic TP ASDIR PRN PRN Reason: HYGEINE - Objective Vital Signs: Vital Signs Temperature 98.3 F 03/21/16 08:22 Pulse Rate 86 03/21/16 08:22 Respiratory Rate 24 03/21/16 08:22 Blood Pressure 141/54 03/21/16 08:22 O2 Sat by Pulse Oximetry (%) 94 L 03/21/16 10:30 Constitutional: Yes: No Distress Eyes: No: Sclera Icterus HENT: Yes: Atraumatic, Normocephalic Neck: Yes: Supple, Trachea Midline Cardiovascular: Yes: Regular Rate and Rhythm Respiratory: Yes: Diminished (bilateral) Extremities: Yes: Other (legs wrapped) Edema: Yes Edema: LLE: 4+, RLE: 4+ Neurological: Yes: Alert, Oriented Labs: CBC, BMP 03/21/16 06:30 03/21/16 06:30 INR, PTT INR 1.16 (0.82-1.09) H 03/20/16 09:20 Fibrinogen 547.0 mg/dL (238-498) H 03/17/16 06:30 - ....Imaging Chest X-ray: Report Reviewed, Image Reviewed (Decreased fluid left side. No pntx ) Problem List - Problems (1) COPD exacerbation Code(s): J44.1 - CHRONIC OBSTRUCTIVE PULMONARY DISEASE W (ACUTE) EXACERBATION (2) Acute and chronic respiratory failure (tawns-sk-ivmwliz) Code(s): J96.20 - ACUTE AND CHR RESP FAILURE, UNSP W HYPOXIA OR HYPERCAPNIA Qualifiers: Qualified Code(s): J96.21 - Acute and chronic respiratory failure with hypoxia (3) Acute kidney failure Code(s): N17.9 - ACUTE KIDNEY FAILURE, UNSPECIFIED Qualifiers: Qualified Code(s): N17.9 - Acute kidney failure, unspecified (4) Chronic kidney disease (CKD) Code(s): N18.9 - CHRONIC KIDNEY DISEASE, UNSPECIFIED Qualifiers: Qualified Code(s): N18.9 - Chronic kidney disease, unspecified (5) Cellulitis Code(s): L03.90 - CELLULITIS, UNSPECIFIED (6) Hyperkalemia Code(s): E87.5 - HYPERKALEMIA (7) Arteriosclerotic heart disease (ASHD) Code(s): I25.10 - ATHSCL HEART DISEASE OF [place] CORONARY ARTERY W/O ANG PCTRS (8) Obesities, morbid Code(s): E66.01 - MORBID (SEVERE) OBESITY DUE TO EXCESS CALORIES Qualifiers: Qualified Code(s): E66.2 - Morbid (severe) obesity with alveolar hypoventilation Assessment/Plan Cellulitis legs: patient on antibiotics COPD Acute on chronic hypercapnic respiratory failure-use BIPAP a large part of the time CAD; S/P stents; no chest pain or palpitations. CHF/fluid overload . Pt is s/p left thoracentesis (600 cc) today. No pntx post- procedure Fluid is transudative Acute Renal Failure Chronic Renal Insufficiency Anemia: being transfused currently Plan: Torsemide Prednisone 20 mg daily inhaled bronchodilator NIPPV PRN Monitor blood counts; transfuse PRN Antibiotics per I.D.
[2016-03-21 14:47] LABS: GLUCOSE,PLEURAL FLUID 102.631; TOTAL PROTEIN,PLEURAL FLUID 1.749
[2016-03-21 14:48] LABS: CHLORIDE PLEURAL FLUID 110
--- NOTE | 2016-03-21 15:30 | PN ---
Teaching Attending Note Name of Resident: Freddie Strickland ATTENDING PHYSICIAN STATEMENT I saw and evaluated the patient. I reviewed the resident's note and discussed the case with the resident. I agree with the resident's findings and plan as documented. SUBJECTIVE: Seen on BIPAP this AM, went for thoracentesis OBJECTIVE: Gen: appears chronically ill, in distress due to SOB, on BIPAP when seen this AM CV: regular Pulm: tachypneic Abd: obese, dependent edema in abdomen, ecchymotic R flank Ext: bilateral legs wrapped with C/D/I dressing ASSESSMENT AND PLAN: 75 year-old man with a PMHx of HTN, PVD, COPD, CKD (baseline Cr 1.8), nephrolithiasis, diastolic HF CHF , CAD s/p stenting in 03/23 and chronic LE lymphedema. presented with SOB and was found to have acute hypercapnic resp failure with acute renal failure # Lower extremities swelling/lymphedema/Celullutis # Constipation: on miralax prn, mineral oil enema # Acute bilateral pleural effusions s/p Thoracocentensis by IR on the right side #Acute blood drop, anemia, last transfused 2 units on 03/20, thrombocytopenia # Acute hypercapnic respiratory failure due to acute exacerbation of COPD. # acute on chronic diastolic heart failure # KARLOS on stage 3 CKD; creatinine stable, on Calcitriol and PhosLo as per Nephrology continue # HTN continue Norvasc, Hydralazine, Torsemide # CAD, history of stent Aspirin, Effient on hold for thoracentesis; Not on beta-regine secondary to COPD; Not on ACEI secondary to KARLOS # Peripheral neuropathy continue Lyrica # Hx of Depression continue Cymbalta Overall, pt has a poor prognosis. Previously had thoracentesis of R side complicated by hematoma. Had thoracentesis of left side today 03/21 but overall remains fluid overloaded. Difficult to obtain good fluid balance due to CKD. Had required additional doses of torsemide yesterday. Remains tenuous as continuing to increase torsemide likely to worsen CKD and so have asked nephro re: HD to optimize fluid status. May have permacath placed tomorrow, to think it over. Cont to hold ASA/Effient in case done tomorrow (would need to discuss with Vasc Surgery to confirm time slot, needs to be NPO) Have asked Palliative to re-eval code status/interventions as had required BIPAP >24 hours, likely to re-accumulate pleural effusions, may need HD to optimize fluid balance Currently respiratory status now improved s/p thoracentesis (600cc removed) Cont to monitor H/H, thrombocytopenia. Now stool occult positive, although having constipation and no overt GIB. Attributing to CKD. If has GIB would need to consult GI, cont PPI as had been on prednisone. No acute need for endoscopy at this time. 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 Keep off HSQ. May need to transfuse plts prior to procedure, T/S ordered
[2016-03-21 16:35] LABS: PLEURAL FLUID APPEARANCE CLOUDY; PLEURAL FLUID COLOR YELLOW; PLEURAL FLUID SOURCE PLEURAL
[2016-03-21 16:36] LABS: PLEURAL FLUID LYMPHOCYTES 22 %; PLEURAL FLUID MACROPHAGES 29 %; PLEURAL FLUID NEUTROPHIL 24 %
--- NOTE | 2016-03-21 17:43 | HOSP ---
Subjective - Review of Symptoms Events since last encounter: Spoke with at bedside. Discussed code status, would like to continue with FULL CODE. OK with BIPAP, currently on NC. Would like to proceed with HD tomorrow, needs permacath Discussed that options available are temporary fixes but pleural effusions/ fluid overload likely to recur. 's contact information: home work Physical Examination Vital Signs: Vital Signs Temperature 96.8 F L 03/21/16 17:22 Pulse Rate 79 03/21/16 17:22 Respiratory Rate 20 03/21/16 17:22 Blood Pressure 121/54 03/21/16 17:22 O2 Sat by Pulse Oximetry (%) 95 03/21/16 15:00 Labs: CBC, BMP 03/21/16 06:30 03/21/16 06:30
[2016-03-21] MEDS: POLYETHYLENE GLYCOL 3350 119 GM BTL PO SCH (17:52)
[2016-03-22 00:06] LABS: ALBUMIN 2.3 g/dL (2.9-4.4); ALPHA-1-GLOBULIN 0.5 g/dL (0.0-0.4); BETA GLOBULIN 0.6 g/dL (0.7-1.3); GAMMA GLOBULIN 0.4 g/dL (0.4-1.8); GLOBULIN, TOTAL 2.4 g/dL (2.2-3.9); M-SPIKE Not Observed g/dL (Not Observed); TOTAL PROTEIN 4.7 g/dL (6.0-8.5)
[2016-03-22] MEDS ORDERED: PT OWN MED DRAWER 7, Y5N ONE ×5 (01:47→12:37)
[2016-03-22] MEDS: CLINDAMYCIN IVPB 300 MG in DEXTROSE 5%-WATER - 48 ML IVPB SCH ×3 (01:56→19:45)
[2016-03-22] MEDS: AZTREONAM 0.5 GM in DEXTROSE 5%-WATER - 50 ML IVPB SCH ×3 (01:56→19:45)
[2016-03-22] MEDS: morphine CARPU-JECT 2 MG/1 ML DISP.SYRIN IVPUSH PRN (04:57)
[2016-03-22] MEDS: SODIUM CHLORIDE NASAL SPRAY 44 ML BOTTLE NS PRN (04:58)
[2016-03-22 08:37] LABS: MCH 26.4 pg (25.7-33.7); MCHC 31.4 g/dl (32.0-35.9); MEAN CELL VOLUME 84.2 fl (80-96); MEAN PLT VOLUME 9.6 fl (7.5-11.1); PLATELET COUNT 54 K/MM3 (134-434); RDW 20.2 % (11.9-15.9); WHITE BLOOD COUNT 2.8 K/mm3 (4.0-10.0)
[2016-03-22 08:50] LABS: CREATININE 3.6 mg/dL (0.7-1.3); MAGNESIUM 2.6 mg/dL (1.8-2.4); PHOSPHOROUS 4.4 mg/dL (2.5-4.9)
[2016-03-22] MEDS: ARFORMOTEROL TARTRATE 15 MCG/2 ML VIAL NEB SCH ×2 (09:00→23:00)
[2016-03-22] MEDS: ACETYLCYSTEINE 20% 200MG/ML 4 ML VIAL *FOR ORAL / INH USE ONLY NEB SCH ×2 (09:00→23:00)
--- NOTE | 2016-03-22 10:01 | PN ---
Progress Note, Physician Chief Complaint: no chest pain - Current Medication List Current Medications: Active Medications Acetaminophen (Tylenol -) 650 mg PO Q6H PRN PRN Reason: FEVER OR PAIN Last Admin: 03/16/16 16:57 Dose: 650 mg Acetylcysteine (Mucomyst 20 Oral / Inh Use Only*) 200 mg NEB BID [facility] Last Admin: 03/22/16 09:00 Dose: 200 mg Amlodipine Besylate (Norvasc -) 10 mg PO DAILY [facility] Last Admin: 03/21/16 11:22 Dose: 10 mg Arformoterol Tartrate (Brovana (Restricted To Pulmonology/Resp) -) 1 amp NEB BID [facility] Last Admin: 03/22/16 09:00 Dose: 1 amp Calcitriol (Rocaltrol -) 0.25 mcg PO DAILY [facility] Last Admin: 03/21/16 11:22 Dose: 0.25 mcg Calcium Acetate (Phoslo -) 1,334 mg PO TIDCM [facility] Last Admin: 03/21/16 17:51 Dose: 1,334 mg Docusate Sodium (Colace -) 100 mg PO BID PRN PRN Reason: CONSTIPATION Last Admin: 03/19/16 23:25 Dose: 100 mg Duloxetine HCl (Cymbalta -) 20 mg PO DAILY [facility] Last Admin: 03/21/16 11:21 Dose: 20 mg Epoetin [place] (Procrit -) 20,000 unit SQ MOWEFR [facility] Last Admin: 03/20/16 11:41 Dose: 20,000 unit Clindamycin Phosphate 300 mg/ (Dextrose) 50 mls @ 104 mls/hr IVPB Q8H-IV [facility] Last Admin: 03/22/16 01:56 Dose: 104 mls/hr Aztreonam 0.5 gm/ Dextrose 50 mls @ 100 mls/hr IVPB Q8H-IV [facility] Last Admin: 03/22/16 01:56 Dose: 100 mls/hr Lactobacillus Acidophilus (Bacid -) 1 tab PO DAILY [facility] Last Admin: 03/21/16 11:22 Dose: 1 tab Morphine Sulfate (Morphine Injection -) 1 mg IVPUSH Q4H PRN PRN Reason: PAIN Last Admin: 03/22/16 04:57 Dose: 1 mg Pantoprazole Sodium (Protonix -) 40 mg PO DAILY [facility] Last Admin: 03/21/16 11:22 Dose: 40 mg Polyethylene Glycol (Miralax (For Daily Use) -) 17 gm PO DAILY [facility] Last Admin: 03/21/16 17:52 Dose: 17 gm Prednisone (Deltasone -) 20 mg PO DAILY [facility] Last Admin: 03/21/16 11:23 Dose: 20 mg Pregabalin (Lyrica -) 50 mg PO DAILY [facility] Last Admin: 03/21/16 14:17 Dose: 50 mg Silver Sulfadiazine (Silvadene -) 1 applic TP DAILY [facility] Last Admin: 03/21/16 11:25 Dose: 1 appful Sodium Chloride ([place] Nasal [place] -) 2 spray NS BID PRN PRN Reason: NASAL CONGESTION Last Admin: 03/22/16 04:58 Dose: 2 spray Tiotropium [place] (Spiriva -) 1 puff IH DAILY [facility] Last Admin: 03/21/16 11:21 Dose: 1 puff Torsemide (Demadex -) 40 mg PO DAILY [facility] Last Admin: 03/21/16 11:22 Dose: 40 mg Zinc Oxide/Panthenol/Vitamin E (Balmex Cream -) 1 applic TP ASDIR PRN PRN Reason: HYGEINE - Objective Vital Signs: Vital Signs Temperature 98.6 F 03/22/16 06:00 Pulse Rate 84 03/22/16 06:00 Respiratory Rate 22 03/22/16 06:00 Blood Pressure 153/69 03/22/16 06:00 O2 Sat by Pulse Oximetry (%) 91 L 03/22/16 08:36 Eyes: Yes: Conjunctiva Clear Cardiovascular: Yes: Regular Rate and Rhythm Respiratory: Yes: Other (decreased breath sounds bilaterally.) Gastrointestinal: Yes: Soft, Abdomen, Obese (non-tender) Edema: Yes Edema: LLE: 2+, RLE: 2+ Neurological: Yes: Alert Labs: CBC, BMP 03/22/16 07:59 03/22/16 07:59 INR, PTT INR 1.16 (0.82-1.09) H 03/20/16 09:20 Fibrinogen 547.0 mg/dL (238-498) H 03/17/16 06:30 Assessment/Plan Assessment/Plan Worsening thrombocytopenia of unclear etiology Acute on chronic renal failure CAD Chronic diastolic CHF RSV lung infection REC: Transfusional support as needed. Monitor creat, bun, k antiplatelet Rx has been on hold for thoracentesis and thrombocytopenia and anemia: resume when feasible Guarded prognosis.
[2016-03-22] MEDS: CALCIUM ACETATE 667 MG CAPSULE (FP) PO SCH ×2 (10:31→19:45)
[2016-03-22] MEDS: POLYETHYLENE GLYCOL 3350 119 GM BTL PO SCH (10:32)
[2016-03-22] MEDS: DULoxetine HCL 20 MG CAPSULE.DR (FP) PO SCH (10:32)
[2016-03-22] MEDS: PREGABALIN 50 MG CAPSULE PO SCH (10:32)
[2016-03-22] MEDS: PANTOPRAZOLE 40 MG TABLET (FP) PO SCH (10:32)
[2016-03-22] MEDS: LACTOBACILLUS ACIDOPHILUS 1 EACH TAB (FP) PO SCH (10:32)
[2016-03-22] MEDS: CALCITRIOL 0.25 MCG CAPSULE (FP) PO SCH (10:33)
[2016-03-22] MEDS: amLODIPine BESYLATE 10 MG TABLET (FP) PO SCH ×2 (10:44→10:48)
[2016-03-22] MEDS: TORSEMIDE 20 MG TABLET (FP) PO SCH (10:44)
[2016-03-22] MEDS: TIOTROPIUM BROMIDE 18 MCG/INH (DEVICE W/ 5 CAPSULES) IH SCH (10:44)
[2016-03-22] MEDS: predniSONE 20 MG TABLET (UD) PO SCH (10:44)
--- NOTE | 2016-03-22 12:53 | PN ---
Progress Note, Physician History of Present Illness: Pt on BIPAP most of the time. Dialysis for fluid overload pending. - Current Medication List Current Medications: Active Medications Acetaminophen (Tylenol -) 650 mg PO Q6H PRN PRN Reason: FEVER OR PAIN Last Admin: 03/16/16 16:57 Dose: 650 mg Acetylcysteine (Mucomyst 20 Oral / Inh Use Only*) 200 mg NEB BID [facility] Last Admin: 03/22/16 09:00 Dose: 200 mg Amlodipine Besylate (Norvasc -) 10 mg PO DAILY [facility] Last Admin: 03/22/16 10:48 Dose: Not Given Arformoterol Tartrate (Brovana (Restricted To Pulmonology/Resp) -) 1 amp NEB BID [facility] Last Admin: 03/22/16 09:00 Dose: 1 amp Calcitriol (Rocaltrol -) 0.25 mcg PO DAILY [facility] Last Admin: 03/22/16 10:33 Dose: Not Given Calcium Acetate (Phoslo -) 1,334 mg PO TIDCM [facility] Last Admin: 03/22/16 10:31 Dose: Not Given Docusate Sodium (Colace -) 100 mg PO BID PRN PRN Reason: CONSTIPATION Last Admin: 03/19/16 23:25 Dose: 100 mg Duloxetine HCl (Cymbalta -) 20 mg PO DAILY [facility] Last Admin: 03/22/16 10:32 Dose: Not Given Epoetin Keith (Procrit -) 20,000 unit SQ MOWEFR [facility] Last Admin: 03/20/16 11:41 Dose: 20,000 unit Clindamycin Phosphate 300 mg/ (Dextrose) 50 mls @ 104 mls/hr IVPB Q8H-IV [facility] Last Admin: 03/22/16 10:44 Dose: 104 mls/hr Aztreonam 0.5 gm/ Dextrose 50 mls @ 100 mls/hr IVPB Q8H-IV [facility] Last Admin: 03/22/16 10:44 Dose: 100 mls/hr Lactobacillus Acidophilus (Bacid -) 1 tab PO DAILY [facility] Last Admin: 03/22/16 10:32 Dose: Not Given Morphine Sulfate (Morphine Injection -) 1 mg IVPUSH Q4H PRN PRN Reason: PAIN Last Admin: 03/22/16 04:57 Dose: 1 mg Pantoprazole Sodium (Protonix -) 40 mg PO DAILY [facility] Last Admin: 03/22/16 10:32 Dose: Not Given Polyethylene Glycol (Miralax (For Daily Use) -) 17 gm PO DAILY [facility] Last Admin: 03/22/16 10:32 Dose: Not Given Prednisone (Deltasone -) 10 mg PO DAILY [facility] Pregabalin (Lyrica -) 50 mg PO DAILY [facility] Last Admin: 03/22/16 10:32 Dose: Not Given Silver Sulfadiazine (Silvadene -) 1 applic TP DAILY [facility] Last Admin: 03/21/16 11:25 Dose: 1 appful Sodium Chloride ([place] Nasal [place] -) 2 spray NS BID PRN PRN Reason: NASAL CONGESTION Last Admin: 03/22/16 04:58 Dose: 2 spray Tiotropium [place] (Spiriva -) 1 puff IH DAILY [facility] Last Admin: 03/22/16 10:44 Dose: 1 puff Torsemide (Demadex -) 40 mg PO DAILY [facility] Last Admin: 03/22/16 10:44 Dose: 40 mg Zinc Oxide/Panthenol/Vitamin E (Balmex Cream -) 1 applic TP ASDIR PRN PRN Reason: HYGEINE - Objective Vital Signs: Vital Signs Temperature 98.6 F 03/22/16 06:00 Pulse Rate 88 03/22/16 11:31 Respiratory Rate 22 03/22/16 06:00 Blood Pressure 153/69 03/22/16 06:00 O2 Sat by Pulse Oximetry (%) 93 L 03/22/16 11:31 Constitutional: No: No Distress Eyes: No: Sclera Icterus HENT: Yes: Atraumatic, Normocephalic Neck: Yes: Supple, Trachea Midline Respiratory: Yes: Diminished Gastrointestinal: Yes: Soft. No: Tenderness Edema: LLE: 4+, RLE: 4+ Neurological: Yes: Alert, Oriented Labs: CBC, BMP 03/22/16 07:59 03/22/16 07:59 INR, PTT INR 1.16 (0.82-1.09) H 03/20/16 09:20 Fibrinogen 547.0 mg/dL (238-498) H 03/17/16 06:30 - ....Imaging Chest X-ray: Report Reviewed, Image Reviewed Problem List - Problems (1) COPD exacerbation Code(s): J44.1 - CHRONIC OBSTRUCTIVE PULMONARY DISEASE W (ACUTE) EXACERBATION (2) Acute and chronic respiratory failure ([id number]-fizucgg) Code(s): J96.20 - ACUTE AND CHR RESP FAILURE, UNSP W HYPOXIA OR HYPERCAPNIA Qualifiers: Qualified Code(s): J96.21 - Acute and chronic respiratory failure with hypoxia (3) Acute kidney failure Code(s): N17.9 - ACUTE KIDNEY FAILURE, UNSPECIFIED Qualifiers: Qualified Code(s): N17.9 - Acute kidney failure, unspecified (4) Chronic kidney disease (CKD) Code(s): N18.9 - CHRONIC KIDNEY DISEASE, UNSPECIFIED Qualifiers: Qualified Code(s): N18.9 - Chronic kidney disease, unspecified (5) Cellulitis Code(s): L03.90 - CELLULITIS, UNSPECIFIED (6) Hyperkalemia Code(s): E87.5 - HYPERKALEMIA (7) Arteriosclerotic heart disease (ASHD) Code(s): I25.10 - ATHSCL HEART DISEASE OF [place] CORONARY ARTERY W/O ANG PCTRS (8) Obesities, morbid Code(s): E66.01 - MORBID (SEVERE) OBESITY DUE TO EXCESS CALORIES Qualifiers: Qualified Code(s): E66.2 - Morbid (severe) obesity with alveolar hypoventilation Assessment/Plan Cellulitis legs: patient on antibiotics COPD Acute on chronic hypercapnic respiratory failure-using BIPAP a large part of the time CAD; S/P stents; no chest pain or palpitations. CHF/fluid overload . Pt is s/p left thoracentesis (600 cc) yesterday. No pntx post-procedure Fluid is transudative. Dialysis pending to try to decrease fluid overload. Acute Renal Failure Chronic Renal Insufficiency: creat. 3.6 K 4.0 BUN 137 Hgb 8.2 today Plan: Torsemide Prednisone reduced to 10 mg daily inhaled bronchodilator NIPPV PRN Monitor blood counts; transfuse PRN Antibiotics per I.D. Dialysis for fluid removal
[2016-03-22] MEDS ORDERED: LIDOCAINE HCL 1%, 10 MG/ML (20ML VIAL) ONE (14:11)
[2016-03-22] MEDS ORDERED: LIDOCAINE HCL 1%, 10 MG/ML (20ML VIAL) IJ ONE ×2 (14:58)
--- NOTE | 2016-03-22 15:07 | PATH ---
Cytology Non-Gynecological Report Patient Name: NETTE SIMMONS Med. Rec. #: [id number] /Age/Gender: 1940 (Age: 75) / M Account: [id number] Location: [facility] MED/SURG Taken: 03/21/2016 Received: 03/21/2016 Reported: 03/22/2016 Physicians: Che Gonzalez M.D. Specimen(s) Received LEFT PLEURAL FLUID Clinical History Pleural effusion Final Diagnosis PLEURAL FLUID, LEFT THORACENTESIS: SATISFACTORY FOR EVALUATION. NO MALIGNANT CELLS IDENTIFIED. REACTIVE MESOTHELIAL CELLS, HISTIOCYTES AND LYMPHOCYTES. Comment: Immunostains will stains performed and interpreted at [facility] on the cell block show the following: The cells of the effusion are negative for BerEP4/EMMA and TTF1; CK7 highlights mesothelial cells. These results are supportive of the interpretation above. Electronically Signed French Amor M.D. Gross Description Received is a 50 cc of yellow fluid in 50% alcohol. One cytofunnel slide and one cell block are made.
--- NOTE | 2016-03-22 15:23 | OP ---
Operative Note - Note: Operative Date: 03/22/16 Pre-Operative Diagnosis: fluid overload Operation: Insertion of permacath Post-Operative Diagnosis: Same as Pre-op Surgeon: Dante Strickland Anesthesia: Fractional Estimated Blood Loss (mls): 10 Operative Report Dictated: Yes
[2016-03-22] MEDS ORDERED: ONDANSETRON 4 MG/2 ML VIAL IVPUSH PRN (15:25)
[2016-03-22] MEDS ORDERED: SODIUM CHLORIDE 1,000 ML IV SCH (15:30)
--- NOTE | 2016-03-22 16:28 | PN ---
Teaching Attending Note Name of Resident: Freddie Strickland ATTENDING PHYSICIAN STATEMENT I saw and evaluated the patient. I reviewed the resident's note and discussed the case with the resident. I agree with the resident's findings and plan as documented. SUBJECTIVE: feels SOB, no fever or chills,. OBJECTIVE: NAD , BIPAP on Cv : RRR Lungs : decreased breath sounds at bases ext : 3 + pitting edema , and thick skin with no discharge . erythematous skin over legs ASSESSMENT AND PLAN: 75 year-old man with a PMHx of HTN, PVD, COPD, CKD (baseline Cr 1.8), nephrolithiasis, D CHF , CAD s/p stenting in 03/23 and chronic LE lymphedema. presented with SOB and was found to have acute hypercapnic resp failure with acute renal failure . 1- Acute hypercapnic resp failure due to COPD exa and diastolic heart failure and pleural effusions. s/p steoids cont diuresis . monitor Na level for HD for volume mgt s/p R thoracocentesis yesterday. per protein not exudative , will check LDH today . likely transudative 2- cellultis of LE : cont aztreonama nd clinda 3- KARLOS on CKD: on cacitriol and phoslo dialysis to be resumed 4- microcytic anemia. s/p transfusion. FOBT positive and has thrombocytopenia . will neot resume ASA and effient 5- thrombocytopenia : nl plt at admission . 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 this was d/w Dr. Patino by resident previously. will ask her kindly to revisit . cont to hold anti plt 6- HTN: better . cont HZN and norvasc 7- CAD : stenting 03/23 . hold asa and effient as above risk of bleed overweight cardiac risk 8- Full code . HLOC
[2016-03-22] MEDS ORDERED: DOCUSATE SODIUM 100 MG CAPSULE (FP) PO PRN (16:39)
--- NOTE | 2016-03-22 16:54 | PN ---
Progress Note (short form) - Note Progress Note: Renal Follow up for KARLOS Pt seen and examined at the bedside this morning on Bipap no chest pain, mild sob persists no fever or chills agreeable to dialysis Vital Signs Temperature 98.5 F 03/22/16 10:00 Pulse Rate 88 03/22/16 11:31 Respiratory Rate 18 03/22/16 10:00 Blood Pressure 136/57 03/22/16 10:00 O2 Sat by Pulse Oximetry (%) 96 03/22/16 14:10 Intake & Output 03/19/16 03/20/16 03/21/16 03/22/16 23:59 23:59 23:59 23:59 Intake Total 400 1550 694 50 Output Total 5500 800 2600 1410 Balance -5100 750 -1906 -1360 Gen: NAD CVS: RRR No M/R Lungs: dec BS throughout the lung rey Abd: Soft NT + Mild distension Ext: > 3+ edema, no cyanosis or clubbing CBC, BMP 03/22/16 07:59 03/22/16 07:59 Current Medications Acetaminophen (Tylenol -) 650 mg PO Q6H PRN PRN Reason: FEVER OR PAIN Acetylcysteine (Mucomyst 20 Oral / Inh Use Only*) 200 mg NEB BID [facility] Amlodipine Besylate (Norvasc -) 10 mg PO DAILY [facility] Arformoterol Tartrate (Brovana (Restricted To Pulmonology/Resp) -) 1 amp NEB BID [facility] Calcitriol (Rocaltrol -) 0.25 mcg PO DAILY [facility] Calcium Acetate (Phoslo -) 1,334 mg PO TIDCM [facility] Docusate Sodium (Colace -) 100 mg PO BID PRN PRN Reason: CONSTIPATION Duloxetine HCl (Cymbalta -) 20 mg PO DAILY [facility] Epoetin Keith (Procrit -) 20,000 unit SQ MOWEFR [facility] Sodium Chloride (Normal Saline -) 1,000 mls @ 42 mls/hr IV ASDIR [facility] Aztreonam 0.5 gm/ Dextrose 50 mls @ 100 mls/hr IVPB Q8H-IV [facility] Clindamycin Phosphate 300 mg/ (Dextrose) 50 mls @ 104 mls/hr IVPB Q8H-IV [facility] Lactobacillus Acidophilus (Bacid -) 1 tab PO DAILY [facility] Morphine Sulfate (Morphine Injection -) 1 mg IVPUSH Q4H PRN PRN Reason: PAIN Ondansetron HCl (Zofran Injection) 4 mg IVPUSH Q6H PRN PRN Reason: NAUSEA AND/OR VOMITING Stop: 03/22/16 21:26 Pantoprazole Sodium (Protonix -) 40 mg PO DAILY [facility] Polyethylene Glycol (Miralax (For Daily Use) -) 17 gm PO DAILY [facility] Prednisone (Deltasone -) 10 mg PO DAILY [facility] Pregabalin (Lyrica -) 50 mg PO DAILY [facility] Silver Sulfadiazine (Silvadene -) 1 applic TP DAILY [facility] Sodium Chloride ([place] Nasal [place] -) 2 spray NS BID PRN PRN Reason: NASAL CONGESTION Tiotropium [place] (Spiriva -) 1 puff IH DAILY [facility] Torsemide (Demadex -) 40 mg PO DAILY [facility] Zinc Oxide/Panthenol/Vitamin E (Balmex Cream -) 1 applic TP ASDIR PRN PRN Reason: HYGEINE A/P 75 year old Gentleman with PMhx of CKD Stage 3 (baseline Cr 1.9), Hx of Nephrolithiasis, Hypertension, COPD, CHF, PVD, Chronic LE lymph edema who was sent into the ED from wound care for increased lethargy and decreased urination for several days with KARLOS with BUN/Cr of 115/7.2 and K of 6.5 #Acute Renal Failure on CKD stage 3 secondary to ATN for permacath insertion today and then dialysis for mangement of refractory volume overload and worsening renal function will plan for aggressive UF with HD Will likely need watermelon inspector HD 2nd HD planned for tomorrow #Fluid overload/LE edema/Pleural effusions/COPD/RSV Continue Toresemide LEg elevatedion Check weights #LE Cellulitis/Lymphedema/Sepsis On Abx as per ID #Anemia on Procrit 3x weekly Transfuse as needed Melvin Johnson DO
[2016-03-22] MEDS: EPOETIN ALFA 20,000 UNIT/1 ML VIAL SQ SCH (17:51)
--- NOTE | 2016-03-22 18:08 | PN ---
Physical Exam: SUBJECTIVE: Patient seen and examined at bedside in AM. Does not feel like his breathing has improved s/p L thoracentesis. Still prefers to use bipap as he feels SOB if not using it. Permacath placement today. Denies CP, abd pain. OBJECTIVE: Vital Signs Temperature 98.0 F 03/22/16 17:20 Pulse Rate 79 03/22/16 17:20 Respiratory Rate 18 03/22/16 17:20 Blood Pressure 128/64 03/22/16 17:20 O2 Sat by Pulse Oximetry (%) 95 03/22/16 17:05 GENERAL: The patient is awake, alert, and fully oriented, on bipap. HEAD: Normal with no signs of trauma. EYES: extraocular movements intact, sclera anicteric, conjunctiva clear. No ptosis. NECK: Trachea midline, full range of motion LUNGS: Auscultated anteriorly, diminished breath sounds, clear to auscultation bilaterally, no wheezes, no crackles, no accessory muscle use. HEART: Regular rate and rhythm, S1, S2 without murmur, rub or gallop. ABDOMEN: Soft, obese, nontender, nondistended, normoactive bowel sounds, no guarding, no rebound, no hepatosplenomegaly, no masses. EXTREMITIES: warm, well-perfused, B/L cellulitic changes, B/L LE 3+ pitting edema and alvarado crusted lesions. Wrapped in bandages. NEUROLOGICAL: Normal speech, gait not observed. PSYCH: Normal mood, normal affect. SKIN: Warm, dry. Laboratory Results - last 24 hr 03/17/16 03/22/16 03/22/16 06:30 07:59 07:59 WBC 2.8 L D RBC 3.09 L Hgb 8.2 L Hct 26.0 L MCV 84.2 MCHC 31.4 L RDW 20.2 H Plt Count 54 L MPV 9.6 Sodium Potassium Chloride Carbon Dioxide Anion Gap BUN Creatinine Random Glucose Calcium Phosphorus Magnesium Serum Total Protein 4.7 L Albumin 2.3 L Globulin 2.4 Albumin/Globulin Ratio 1.0 Pmeqb-1-Ccyzgkzko 0.5 H Fvwpn-2-Xeljkejmm 0.9 Beta Globulins 0.6 L Gamma Globulins 0.4 IgG 417 L IgA 75 IgM 56 SADAF M-Mendez Not observed SADAF Comments Serum SADAF Interpret Blood Type A POSITIVE Antibody Screen Positive H Antibody Identification TNP 03/22/16 07:59 WBC RBC Hgb Hct MCV MCHC RDW Plt Count MPV Sodium 146 H Potassium 4.0 Chloride 105 Carbon Dioxide 31 Anion Gap 10 BUN 137 H* Creatinine 3.6 H Random Glucose 102 Calcium 8.0 L Phosphorus 4.4 Magnesium 2.6 H Serum Total Protein Albumin Globulin Albumin/Globulin Ratio Yqoxo-3-Vsrilndhu Pbydj-0-Itsshcfaw Beta Globulins Gamma Globulins IgG IgA IgM SADAF M-Mendez SADAF Comments Serum SADAF Interpret Blood Type Antibody Screen Antibody Identification Microbiology 03/21/16 Unknown Pleural Fluid AFB Smear Concentration - Preliminary 03/21/16 Unknown Pleural Fluid Mycobacterial Culture - Preliminary 03/21/16 12:30 Pleural Fluid Body Fluid Culture - Preliminary NO AEROBIC GROWTH, 24 HRS 03/21/16 13:43 Pleural Fluid ALANA Preparation - Preliminary 03/21/16 13:43 Pleural Fluid Fungal Culture - Preliminary 03/16/16 18:40 Blood - Peripheral Venous Blood Culture - Final NO GROWTH AFTER 5 DAYS INCUBATION 03/16/16 18:40 Blood - Peripheral Venous Blood Culture - Final NO GROWTH AFTER 5 DAYS INCUBATION 03/13/16 18:30 Blood - Peripheral Venous Blood Culture - Final NO GROWTH AFTER 5 DAYS INCUBATION 03/13/16 18:30 Blood - Peripheral Venous Blood Culture - Final NO GROWTH AFTER 5 DAYS INCUBATION 03/08/16 10:15 Blood - Peripheral Venous Blood Culture - Final NO GROWTH AFTER 5 DAYS INCUBATION 03/08/16 10:15 Blood - Peripheral Venous Blood Culture - Final NO GROWTH AFTER 5 DAYS INCUBATION 03/07/16 15:30 Pleural Fluid Gram Stain - Final 03/07/16 15:30 Pleural Fluid Body Fluid Culture - Final NO GROWTH OF AEROBIC ORGANISMS AFTER 48 HOURS INCUBATION 03/07/16 15:30 Pleural Fluid Anaerobic Culture - Final NO ANAEROBES WERE ISOLATED 03/07/16 15:30 Pleural Fluid AFB Smear Concentration - Final 03/07/16 15:30 Pleural Fluid Mycobacterial Culture - Preliminary 03/07/16 15:30 Pleural Fluid ALANA Preparation - Preliminary 03/07/16 15:30 Pleural Fluid Fungal Culture - Preliminary 02/29/16 17:40 Nasopharyngeal Swab Respiratory Virus Panel - Final 02/25/16 17:30 Blood - Peripheral Venous Blood Culture - Final NO GROWTH AFTER 5 DAYS INCUBATION 02/25/16 17:30 Blood - Peripheral Venous Blood Culture - Final NO GROWTH AFTER 5 DAYS INCUBATION 02/28/16 17:40 Nasopharyngeal Swab Influenza Types A,B Antigen (TONI) - Final 02/28/16 17:40 Nasopharyngeal Swab - Final 02/26/16 06:45 Urine - Urine Clean Catch Urine Culture - Final NO GROWTH OBTAINED 02/18/16 19:15 Blood - Peripheral Venous Blood Culture - Final NO GROWTH AFTER 5 DAYS INCUBATION 02/18/16 19:15 Blood - Peripheral Venous Blood Culture - Final NO GROWTH AFTER 5 DAYS INCUBATION 02/18/16 18:10 Urine - Urine Clean Catch Urine Culture - Final NO GROWTH OBTAINED Active Medications Generic Name Dose Route Start Last Admin Trade Name Freq PRN Reason Stop Dose Admin Acetaminophen 650 mg 03/22/16 16:39 Tylenol - PO Q6H PRN FEVER OR PAIN Acetylcysteine 200 mg 03/22/16 22:00 Mucomyst 20 Oral / Inh Use Only* NEB BID [facility]E Amlodipine Besylate 10 mg 03/23/16 10:00 Norvasc - PO DAILY [facility] Arformoterol Tartrate 1 amp 03/22/16 22:00 Brovana (Restricted To Pulmonology/Resp) - NEB BID [facility] Calcitriol 0.25 mcg 03/23/16 10:00 Rocaltrol - PO DAILY [facility] Calcium Acetate 1,334 mg 03/22/16 17:30 Phoslo - PO TIDCM [facility] Docusate Sodium 100 mg 03/22/16 16:39 Colace - PO BID PRN CONSTIPATION Duloxetine HCl 20 mg 03/23/16 10:00 Cymbalta - PO DAILY [facility] Epoetin Keith 20,000 unit 03/24/16 10:00 Procrit - SQ MoWeFr@1000 [facility] Sodium Chloride 1,000 mls @ 42 mls/hr 03/22/16 15:30 Normal Saline - IV ASDIR [facility] Aztreonam 0.5 gm/ Dextrose 50 mls @ 100 mls/hr 03/22/16 18:00 IVPB Q8H-IV [facility] Clindamycin Phosphate 300 mg/ 50 mls @ 104 mls/hr 03/22/16 18:00 Dextrose IVPB Q8H-IV [facility] Lactobacillus Acidophilus 1 tab 03/23/16 10:00 Bacid - PO DAILY [facility] Morphine Sulfate 1 mg 03/22/16 16:39 Morphine Injection - IVPUSH Q4H PRN PAIN Ondansetron HCl 4 mg 03/22/16 15:25 Zofran Injection IVPUSH 03/22/16 21:26 Q6H PRN NAUSEA AND/OR VOMITING Pantoprazole Sodium 40 mg 03/23/16 10:00 Protonix - PO DAILY [facility] Polyethylene Glycol 17 gm 03/23/16 10:00 Miralax (For Daily Use) - PO DAILY [facility] Prednisone 10 mg 03/23/16 10:00 Deltasone - PO DAILY [facility] Pregabalin 50 mg 03/23/16 10:00 Lyrica - PO DAILY [facility] Silver Sulfadiazine 1 applic 03/23/16 10:00 Silvadene - TP DAILY [facility] Sodium Chloride 2 spray 03/22/16 16:39 [place] Nasal [place] - NS BID PRN NASAL CONGESTION Tiotropium [place] 1 puff 03/23/16 10:00 Spiriva - IH DAILY [facility] Torsemide 40 mg 03/23/16 10:00 Demadex - PO DAILY [facility] Zinc Oxide/Panthenol/Vitamin E 1 applic 03/22/16 16:39 Balmex Cream - TP ASDIR PRN HYGEINE ASSESSMENT/PLAN: 75 year-old man with a PMH of HTN, PVD, COPD, CKD (baseline Cr 1.9), nephrolithiasis, and chronic LE lymphedema. Admitted for acute renal failure ( hyperkalemia) and respiratory distress. # Acute on chronic renal failure -Permacath placed today, dialysis tomorrow most likely. -limit fluid intake to 1L per day due to SOB. -137/3.6 today, improved compared to yesterday (baseline 1.8-1.9) -c/w torsemide 40 mg po qd # Acute COPD exacerbation with hypercapnic respiratory failure -SOB today but on bipap. -brovana, albuterol neb q4h PRN, albuterol neb standing qid -prednisone 10 mg PO qd (day 1 today at 10 mg) -bipap as necessary -on BiPap currently #SOB -Resp virus panel (02/28) - RSV positive - can remove droplet precautions. -diuresis with torsemide 40 mg po qd -s/p R and L thoracentesis -BiPap as necessary -CXR for tomorrow #Cellulitis of B/L LE -improving -clindamycin 300 mg IV q8 (day 4) -aztreonam 0.5 g IV q8 (day 4) # Constipation -If required, can give mineral oil enema # Anemia, microcytic -Anemia of chronic disease secondary to CKD -Hgb 8.2 (s/p 4 unit PRBC this admission); -Epoetin 20,000 units SQ MWF -FOBT positive # HTN -goal systolic BP 120-140 -norvasc 10 mg po qd # CHF (diastolic) -torsemide 40 mg qd # Hx of Depression -c/w cymbalta 20mg #Neuropathy -lyrica 50 mg PO qd # CAD -prasugrel 10 mg PO qd, on hold for now for thoracentesis -continue prasugrel until 04/2016 #. FEN -hypocalcemia -c/w calcitriol - f/u BMP -NPO after midnight for permacath placement # Dispo: monitor on floors. Dialysis tomorrow most likely. Low threshold for ICU. Problem List - Problems (1) Acute kidney failure Code(s): N17.9 - ACUTE KIDNEY FAILURE, UNSPECIFIED Qualifiers: Qualified Code(s): N17.9 - Acute kidney failure, unspecified (2) COPD exacerbation Code(s): J44.1 - CHRONIC OBSTRUCTIVE PULMONARY DISEASE W (ACUTE) EXACERBATION (3) Hyperkalemia Code(s): E87.5 - HYPERKALEMIA (4) Acute and chronic respiratory failure (xsrus-ha-uppqcef) Code(s): J96.20 - ACUTE AND CHR RESP FAILURE, UNSP W HYPOXIA OR HYPERCAPNIA Qualifiers: Qualified Code(s): J96.21 - Acute and chronic respiratory failure with hypoxia (5) Acute exacerbation of chronic obstructive pulmonary disease (COPD) Code(s): J44.1 - CHRONIC OBSTRUCTIVE PULMONARY DISEASE W (ACUTE) EXACERBATION (6) Acute on chronic diastolic (congestive) heart failure Code(s): I50.33 - ACUTE ON CHRONIC DIASTOLIC (CONGESTIVE) HEART FAILURE (7) Anxiety and depression Code(s): F41.9 - ANXIETY DISORDER, UNSPECIFIED F32.9 - MAJOR DEPRESSIVE DISORDER, SINGLE EPISODE, UNSPECIFIED (8) Cellulitis Code(s): L03.90 - CELLULITIS, UNSPECIFIED (9) Chronic kidney disease (CKD) Code(s): N18.9 - CHRONIC KIDNEY DISEASE, UNSPECIFIED Qualifiers: Qualified Code(s): N18.9 - Chronic kidney disease, unspecified (10) Diastolic CHF Code(s): I50.30 - UNSPECIFIED DIASTOLIC (CONGESTIVE) HEART FAILURE (11) Hyperlipidemia Code(s): E78.5 - HYPERLIPIDEMIA, UNSPECIFIED (12) Hypertension Code(s): I10 - ESSENTIAL (PRIMARY) HYPERTENSION (13) Obesities, morbid Code(s): E66.01 - MORBID (SEVERE) OBESITY DUE TO EXCESS CALORIES Qualifiers: Qualified Code(s): E66.2 - Morbid (severe) obesity with alveolar hypoventilation (14) Respiratory failure with hypoxia and hypercapnia Code(s): J96.91 - RESPIRATORY FAILURE, UNSPECIFIED WITH HYPOXIA J96.92 - RESPIRATORY FAILURE, UNSPECIFIED WITH HYPERCAPNIA Qualifiers: Qualified Code(s): J96.21 - Acute and chronic respiratory failure with hypoxia; J96.22 - Acute and chronic respiratory failure with hypercapnia (15) Shortness of breath Code(s): R06.02 - SHORTNESS OF BREATH (16) Hematoma Code(s): T14.8 - OTHER INJURY OF UNSPECIFIED BODY REGION Visit type - Emergency Visit Emergency Visit: Yes ED Registration Date: 02/18/16 Care time: The patient presented to the Emergency Department on the above date and was hospitalized for further evaluation of their emergent condition. - New Patient This patient is new to me today: No - Critical Care Critical Care patient: No
[2016-03-23] MEDS: AZTREONAM 0.5 GM in DEXTROSE 5%-WATER - 50 ML IVPB SCH ×3 (02:26→18:26)
[2016-03-23] MEDS: CLINDAMYCIN IVPB 300 MG in DEXTROSE 5%-WATER - 48 ML IVPB SCH ×3 (02:26→18:26)
--- NOTE | 2016-03-23 09:53 | PN ---
Progress Note, Physician Chief Complaint: sitting up, no distress - Current Medication List Current Medications: Active Medications Acetaminophen (Tylenol -) 650 mg PO Q6H PRN PRN Reason: FEVER OR PAIN Acetylcysteine (Mucomyst 20 Oral / Inh Use Only*) 200 mg NEB BID [facility] Last Admin: 03/22/16 23:00 Dose: 200 mg Amlodipine Besylate (Norvasc -) 10 mg PO DAILY [facility] Arformoterol Tartrate (Brovana (Restricted To Pulmonology/Resp) -) 1 amp NEB BID [facility] Last Admin: 03/22/16 23:00 Dose: 1 amp Calcitriol (Rocaltrol -) 0.25 mcg PO DAILY [facility] Calcium Acetate (Phoslo -) 1,334 mg PO TIDCM [facility] Last Admin: 03/22/16 19:45 Dose: Not Given Docusate Sodium (Colace -) 100 mg PO BID PRN PRN Reason: CONSTIPATION Last Admin: 03/22/16 22:11 Dose: 100 mg Duloxetine HCl (Cymbalta -) 20 mg PO DAILY [facility] Epoetin Keith (Procrit -) 20,000 unit SQ MoWeFr@1000 [facility] Sodium Chloride (Normal Saline -) 1,000 mls @ 42 mls/hr IV ASDIR [facility] Last Admin: 03/22/16 19:45 Dose: Not Given Aztreonam 0.5 gm/ Dextrose 50 mls @ 100 mls/hr IVPB Q8H-IV [facility] Last Admin: 03/23/16 02:26 Dose: 100 mls/hr Clindamycin Phosphate 300 mg/ (Dextrose) 50 mls @ 104 mls/hr IVPB Q8H-IV [facility] Last Admin: 03/23/16 02:26 Dose: 104 mls/hr Lactobacillus Acidophilus (Bacid -) 1 tab PO DAILY [facility] Morphine Sulfate (Morphine Injection -) 1 mg IVPUSH Q4H PRN PRN Reason: PAIN Pantoprazole Sodium (Protonix -) 40 mg PO DAILY [facility] Polyethylene Glycol (Miralax (For Daily Use) -) 17 gm PO DAILY [facility] Prednisone (Deltasone -) 10 mg PO DAILY [facility] Pregabalin (Lyrica -) 50 mg PO DAILY [facility] Silver Sulfadiazine (Silvadene -) 1 applic TP DAILY [facility] Sodium Chloride ([place] Nasal [place] -) 2 spray NS BID PRN PRN Reason: NASAL CONGESTION Tiotropium [place] (Spiriva -) 1 puff IH DAILY [facility] Torsemide (Demadex -) 40 mg PO DAILY [facility] Zinc Oxide/Panthenol/Vitamin E (Balmex Cream -) 1 applic TP ASDIR PRN PRN Reason: HYGEINE - Objective Vital Signs: Vital Signs Temperature 98.4 F 03/23/16 06:00 Pulse Rate 82 03/23/16 06:00 Respiratory Rate 22 03/23/16 06:00 Blood Pressure 157/69 03/23/16 06:00 O2 Sat by Pulse Oximetry (%) 93 L 03/22/16 19:00 Constitutional: Yes: No Distress Eyes: Yes: Conjunctiva Clear Cardiovascular: Yes: Regular Rate and Rhythm Respiratory: Yes: Other (decreased breath sounds at bases.) Gastrointestinal: Yes: Soft, Abdomen, Obese Edema: Yes Edema: LLE: 2+, RLE: 2+ Neurological: Yes: Alert Labs: CBC, BMP 03/22/16 07:59 03/22/16 07:59 INR, PTT INR 1.16 (0.82-1.09) H 03/20/16 09:20 Fibrinogen 547.0 mg/dL (238-498) H 03/17/16 06:30 Assessment/Plan Assessment/Plan Worsening thrombocytopenia of unclear etiology Acute on chronic renal failure CAD Chronic diastolic CHF RSV lung infection REC: Transfusional support as needed. Monitor creat, bun, k antiplatelet Rx has been on hold for thoracentesis and thrombocytopenia and anemia: resume when feasible- when/if counts recover.
--- NOTE | 2016-03-23 09:56 | PN ---
Progress Note, Physician History of Present Illness: Pt on BIPAP most of the time. Sitting up in bed. NAD. Oriented and alert. - Current Medication List Current Medications: Active Medications Acetaminophen (Tylenol -) 650 mg PO Q6H PRN PRN Reason: FEVER OR PAIN Acetylcysteine (Mucomyst 20 Oral / Inh Use Only*) 200 mg NEB BID [facility] Last Admin: 03/22/16 23:00 Dose: 200 mg Amlodipine Besylate (Norvasc -) 10 mg PO DAILY [facility] Arformoterol Tartrate (Brovana (Restricted To Pulmonology/Resp) -) 1 amp NEB BID [facility] Last Admin: 03/22/16 23:00 Dose: 1 amp Calcitriol (Rocaltrol -) 0.25 mcg PO DAILY [facility] Calcium Acetate (Phoslo -) 1,334 mg PO TIDCM [facility] Last Admin: 03/22/16 19:45 Dose: Not Given Docusate Sodium (Colace -) 100 mg PO BID PRN PRN Reason: CONSTIPATION Last Admin: 03/22/16 22:11 Dose: 100 mg Duloxetine HCl (Cymbalta -) 20 mg PO DAILY [facility] Epoetin Keith (Procrit -) 20,000 unit SQ MoWeFr@1000 [facility] Sodium Chloride (Normal Saline -) 1,000 mls @ 42 mls/hr IV ASDIR [facility] Last Admin: 03/22/16 19:45 Dose: Not Given Aztreonam 0.5 gm/ Dextrose 50 mls @ 100 mls/hr IVPB Q8H-IV [facility] Last Admin: 03/23/16 02:26 Dose: 100 mls/hr Clindamycin Phosphate 300 mg/ (Dextrose) 50 mls @ 104 mls/hr IVPB Q8H-IV [facility] Last Admin: 03/23/16 02:26 Dose: 104 mls/hr Lactobacillus Acidophilus (Bacid -) 1 tab PO DAILY [facility] Morphine Sulfate (Morphine Injection -) 1 mg IVPUSH Q4H PRN PRN Reason: PAIN Pantoprazole Sodium (Protonix -) 40 mg PO DAILY [facility] Polyethylene Glycol (Miralax (For Daily Use) -) 17 gm PO DAILY [facility] Prednisone (Deltasone -) 10 mg PO DAILY [facility] Pregabalin (Lyrica -) 50 mg PO DAILY [facility] Silver Sulfadiazine (Silvadene -) 1 applic TP DAILY [facility] Sodium Chloride ([place] Nasal [place] -) 2 spray NS BID PRN PRN Reason: NASAL CONGESTION Tiotropium [place] (Spiriva -) 1 puff IH DAILY [facility] Torsemide (Demadex -) 40 mg PO DAILY [facility] Zinc Oxide/Panthenol/Vitamin E (Balmex Cream -) 1 applic TP ASDIR PRN PRN Reason: HYGEINE - Objective Vital Signs: Vital Signs Temperature 98.4 F 03/23/16 06:00 Pulse Rate 82 03/23/16 06:00 Respiratory Rate 22 03/23/16 06:00 Blood Pressure 157/69 03/23/16 06:00 O2 Sat by Pulse Oximetry (%) 93 L 03/22/16 19:00 Constitutional: Yes: No Distress Eyes: No: Sclera Icterus HENT: Yes: Atraumatic, Normocephalic Neck: Yes: Supple, Trachea Midline Cardiovascular: Yes: Regular Rate and Rhythm Respiratory: Yes: Diminished (left side), Rales (right base;) Gastrointestinal: Yes: Soft. No: Tenderness Extremities: Yes: Erythema Edema: Yes Edema: LLE: 4+, RLE: 4+ Neurological: Yes: Alert, Oriented Labs: CBC, BMP 03/22/16 07:59 03/22/16 07:59 INR, PTT INR 1.16 (0.82-1.09) H 03/20/16 09:20 Fibrinogen 547.0 mg/dL (238-498) H 03/17/16 06:30 Problem List - Problems (1) COPD exacerbation Code(s): J44.1 - CHRONIC OBSTRUCTIVE PULMONARY DISEASE W (ACUTE) EXACERBATION (2) Acute and chronic respiratory failure ([id number]) Code(s): J96.20 - ACUTE AND CHR RESP FAILURE, UNSP W HYPOXIA OR HYPERCAPNIA Qualifiers: Qualified Code(s): J96.21 - Acute and chronic respiratory failure with hypoxia (3) Acute kidney failure Code(s): N17.9 - ACUTE KIDNEY FAILURE, UNSPECIFIED Qualifiers: Qualified Code(s): N17.9 - Acute kidney failure, unspecified (4) Chronic kidney disease (CKD) Code(s): N18.9 - CHRONIC KIDNEY DISEASE, UNSPECIFIED Qualifiers: Qualified Code(s): N18.9 - Chronic kidney disease, unspecified (5) Cellulitis Code(s): L03.90 - CELLULITIS, UNSPECIFIED (6) Hyperkalemia Code(s): E87.5 - HYPERKALEMIA (7) Arteriosclerotic heart disease (ASHD) Code(s): I25.10 - ATHSCL HEART DISEASE OF [place] CORONARY ARTERY W/O ANG PCTRS (8) Obesities, morbid Code(s): E66.01 - MORBID (SEVERE) OBESITY DUE TO EXCESS CALORIES Qualifiers: Qualified Code(s): E66.2 - Morbid (severe) obesity with alveolar hypoventilation Assessment/Plan Cellulitis legs: patient on antibiotics COPD Acute on chronic hypercapnic respiratory failure-using BIPAP a large part of the time CAD; S/P stents; no chest pain or palpitations. CHF/fluid overload . Dialysis yesterday removed 1.5 kg. Respiratory status seems mildly improved today Acute Renal Failure Chronic Renal Insufficiency Plan: Torsemide Prednisone 10 mg daily inhaled bronchodilator NIPPV PRN Monitor blood counts; transfuse PRN Antibiotics per I.D. Dialysis for fluid removal per renal
[2016-03-23] MEDS: ARFORMOTEROL TARTRATE 15 MCG/2 ML VIAL NEB SCH ×2 (09:59→22:25)
[2016-03-23] MEDS ORDERED: PRASUGREL HCL 10 MG TAB PO SCH (10:00)
[2016-03-23] MEDS: ACETYLCYSTEINE 20% 200MG/ML 4 ML VIAL *FOR ORAL / INH USE ONLY NEB SCH ×2 (10:00→22:25)
[2016-03-23] MEDS ORDERED: ASPIRIN COATED 81 MG TABLET.EC PO SCH (10:00)
[2016-03-23] MEDS ORDERED: predniSONE 10 MG TABLET (UD) PO SCH (10:00)
[2016-03-23] MEDS: CALCIUM ACETATE 667 MG CAPSULE (FP) PO SCH ×3 (10:43→18:26)
[2016-03-23] MEDS: LACTOBACILLUS ACIDOPHILUS 1 EACH TAB (FP) PO SCH (10:44)
[2016-03-23] MEDS: DULoxetine HCL 20 MG CAPSULE.DR (FP) PO SCH (10:45)
[2016-03-23] MEDS: predniSONE 10 MG TABLET (UD) PO SCH (10:45)
[2016-03-23] MEDS: TORSEMIDE 20 MG TABLET (FP) PO SCH (10:45)
[2016-03-23] MEDS: PREGABALIN 50 MG CAPSULE PO SCH (10:46)
[2016-03-23] MEDS: POLYETHYLENE GLYCOL 3350 119 GM BTL PO SCH (10:46)
[2016-03-23] MEDS: CALCITRIOL 0.25 MCG CAPSULE (FP) PO SCH (10:47)
[2016-03-23] MEDS: PANTOPRAZOLE 40 MG TABLET (FP) PO SCH (10:47)
[2016-03-23] MEDS: amLODIPine BESYLATE 10 MG TABLET (FP) PO SCH (10:47)
[2016-03-23] MEDS: TIOTROPIUM BROMIDE 18 MCG/INH (DEVICE W/ 5 CAPSULES) IH SCH (10:48)
[2016-03-23] MEDS: SILVER SULFADIAZINE 1% TOP CREAM 50 GM JAR TP SCH (10:48)
[2016-03-23] MEDS ORDERED: PT OWN MED DRAWER 7, Y5N ONE ×3 (11:07→18:24)
--- NOTE | 2016-03-23 12:32 | PN ---
Physical Exam: SUBJECTIVE: Patient seen and examined this AM. Off bipap and says SOB is improving. He denies CP, SOB at rest, abd pain. Has not had BM today. Says he gets SOB with minimal exertion. Says nose is dry. OBJECTIVE: Vital Signs Temperature 98.4 F 03/23/16 06:00 Pulse Rate 88 03/23/16 11:02 Respiratory Rate 22 03/23/16 06:00 Blood Pressure 157/69 03/23/16 06:00 O2 Sat by Pulse Oximetry (%) 95 03/23/16 11:02 GENERAL: The patient is awake, alert, and fully oriented HEAD: Normal with no signs of trauma. EYES: extraocular movements intact, sclera anicteric, conjunctiva clear. No ptosis. NECK: Trachea midline, full range of motion LUNGS: Auscultated anteriorly, diminished breath sounds, clear to auscultation bilaterally, no wheezes, no crackles, no accessory muscle use. HEART: Regular rate and rhythm, S1, S2 without murmur, rub or gallop. ABDOMEN: Soft, obese, nontender, nondistended, normoactive bowel sounds, no guarding, no rebound, no hepatosplenomegaly, no masses. EXTREMITIES: warm, well-perfused, B/L cellulitic changes, B/L LE 3+ pitting edema and alvarado crusted lesions. NEUROLOGICAL: Normal speech, gait not observed. PSYCH: Normal mood, normal affect. SKIN: Warm, dry. Laboratory Results - last 24 hr 03/18/16 03/22/16 08:10 17:45 LD Total 152 Blood Type A POSITIVE Antibody Screen Negative Crossmatch See Detail CBCD WBC 2.8 K/mm3 (4.0-10.0) L D 03/22/16 07:59 RBC 3.09 M/mm3 (4.00-5.60) L 03/22/16 07:59 Hgb 8.2 GM/dL (11.7-16.9) L 03/22/16 07:59 Hct 26.0 % (35.4-49) L 03/22/16 07:59 MCV 84.2 fl (80-96) 03/22/16 07:59 MCHC 31.4 g/dl (32.0-35.9) L 03/22/16 07:59 RDW 20.2 % (11.9-15.9) H 03/22/16 07:59 Plt Count 54 K/MM3 (134-434) L 03/22/16 07:59 MPV 9.6 fl (7.5-11.1) 03/22/16 07:59 CMP Sodium 146 mmol/L (136-145) H 03/22/16 07:59 Potassium 4.0 mmol/L (3.5-5.1) 03/22/16 07:59 Chloride 105 mmol/L (98-107) 03/22/16 07:59 Carbon Dioxide 31 mmol/L (21-32) 03/22/16 07:59 Anion Gap 10 (8-16) 03/22/16 07:59 BUN 137 mg/dL (7-18) H* 03/22/16 07:59 Creatinine 3.6 mg/dL (0.7-1.3) H 03/22/16 07:59 Creat Clearance w eGFR 16.18 (>60) 03/21/16 06:30 Random Glucose 102 mg/dL (74-106) 03/22/16 07:59 Calcium 8.0 mg/dL (8.5-10.1) L 03/22/16 07:59 Total Bilirubin 0.6 mg/dL (0.2-1.0) D 03/21/16 06:30 AST 16 U/L (15-37) 03/21/16 06:30 ALT 31 U/L (12-78) 03/21/16 06:30 Alkaline Phosphatase 113 U/L (45-117) 03/21/16 06:30 Total Protein 4.9 g/dl (6.4-8.2) L 03/21/16 06:30 Albumin 2.2 g/dl (3.4-5.0) L 03/21/16 06:30 CARDIAC ENZYMES Creatine Kinase 76 IU/L (39-308) 02/19/16 05:30 Troponin I < 0.02 ng/ml (0.015-0.045) 02/19/16 21:50 Microbiology 03/21/16 12:30 Pleural Fluid Gram Stain - Final 03/21/16 12:30 Pleural Fluid Body Fluid Culture - Final NO GROWTH OF AEROBIC ORGANISMS AFTER 48 HOURS INCUBATION 03/21/16 12:30 Pleural Fluid Anaerobic Culture - Final NO ANAEROBES WERE ISOLATED 03/21/16 Unknown Pleural Fluid AFB Smear Concentration - Preliminary 03/21/16 Unknown Pleural Fluid Mycobacterial Culture - Preliminary 03/21/16 13:43 Pleural Fluid ALANA Preparation - Preliminary 03/21/16 13:43 Pleural Fluid Fungal Culture - Preliminary 03/16/16 18:40 Blood - Peripheral Venous Blood Culture - Final NO GROWTH AFTER 5 DAYS INCUBATION 03/16/16 18:40 Blood - Peripheral Venous Blood Culture - Final NO GROWTH AFTER 5 DAYS INCUBATION 03/13/16 18:30 Blood - Peripheral Venous Blood Culture - Final NO GROWTH AFTER 5 DAYS INCUBATION 03/13/16 18:30 Blood - Peripheral Venous Blood Culture - Final NO GROWTH AFTER 5 DAYS INCUBATION 03/08/16 10:15 Blood - Peripheral Venous Blood Culture - Final NO GROWTH AFTER 5 DAYS INCUBATION 03/08/16 10:15 Blood - Peripheral Venous Blood Culture - Final NO GROWTH AFTER 5 DAYS INCUBATION 03/07/16 15:30 Pleural Fluid Gram Stain - Final 03/07/16 15:30 Pleural Fluid Body Fluid Culture - Final NO GROWTH OF AEROBIC ORGANISMS AFTER 48 HOURS INCUBATION 03/07/16 15:30 Pleural Fluid Anaerobic Culture - Final NO ANAEROBES WERE ISOLATED 03/07/16 15:30 Pleural Fluid AFB Smear Concentration - Final 03/07/16 15:30 Pleural Fluid Mycobacterial Culture - Preliminary 03/07/16 15:30 Pleural Fluid ALANA Preparation - Preliminary 03/07/16 15:30 Pleural Fluid Fungal Culture - Preliminary 02/29/16 17:40 Nasopharyngeal Swab Respiratory Virus Panel - Final 02/25/16 17:30 Blood - Peripheral Venous Blood Culture - Final NO GROWTH AFTER 5 DAYS INCUBATION 02/25/16 17:30 Blood - Peripheral Venous Blood Culture - Final NO GROWTH AFTER 5 DAYS INCUBATION 02/28/16 17:40 Nasopharyngeal Swab Influenza Types A,B Antigen (TONI) - Final 02/28/16 17:40 Nasopharyngeal Swab - Final 02/26/16 06:45 Urine - Urine Clean Catch Urine Culture - Final NO GROWTH OBTAINED 02/18/16 19:15 Blood - Peripheral Venous Blood Culture - Final NO GROWTH AFTER 5 DAYS INCUBATION 02/18/16 19:15 Blood - Peripheral Venous Blood Culture - Final NO GROWTH AFTER 5 DAYS INCUBATION 02/18/16 18:10 Urine - Urine Clean Catch Urine Culture - Final NO GROWTH OBTAINED Active Medications Generic Name Dose Route Start Last Admin Trade Name Freq PRN Reason Stop Dose Admin Acetaminophen 650 mg 03/22/16 16:39 Tylenol - PO Q6H PRN FEVER OR PAIN Acetylcysteine 200 mg 03/22/16 22:00 03/23/16 10:00 Mucomyst 20 Oral / Inh Use Only* NEB 200 mg BID [facility] Administration Amlodipine Besylate 10 mg 03/23/16 10:00 03/23/16 10:47 Norvasc - PO 10 mg DAILY [facility] Administration Arformoterol Tartrate 1 amp 03/22/16 22:00 03/23/16 09:59 Brovana (Restricted To Pulmonology/Resp) - NEB 1 amp BID [facility] Administration Calcitriol 0.25 mcg 03/23/16 10:00 03/23/16 10:47 Rocaltrol - PO 0.25 mcg DAILY [facility] Administration Calcium Acetate 1,334 mg 03/22/16 17:30 03/23/16 10:43 Phoslo - PO 1,334 mg TIDCM [facility] Administration Docusate Sodium 100 mg 03/22/16 16:39 03/22/16 22:11 Colace - PO 100 mg BID PRN Administration CONSTIPATION Duloxetine HCl 20 mg 03/23/16 10:00 03/23/16 10:45 Cymbalta - PO 20 mg DAILY [facility] Administration Epoetin Keith 20,000 unit 03/24/16 10:00 Procrit - SQ MoWeFr@1000 [facility] Aztreonam 0.5 gm/ Dextrose 50 mls @ 100 mls/hr 03/22/16 18:00 03/23/16 10:44 IVPB 100 mls/hr Q8H-IV [facility] Administration Clindamycin Phosphate 300 mg/ 50 mls @ 104 mls/hr 03/22/16 18:00 03/23/16 10:44 Dextrose IVPB 104 mls/hr Q8H-IV [facility] Administration Lactobacillus Acidophilus 1 tab 03/23/16 10:00 03/23/16 10:44 Bacid - PO 1 tab DAILY [facility] Administration Morphine Sulfate 1 mg 03/22/16 16:39 Morphine Injection - IVPUSH Q4H PRN PAIN Pantoprazole Sodium 40 mg 03/23/16 10:00 03/23/16 10:47 Protonix - PO 40 mg DAILY [facility] Administration Polyethylene Glycol 17 gm 03/23/16 10:00 03/23/16 10:46 Miralax (For Daily Use) - PO 17 gm DAILY [facility] Administration Prednisone 10 mg 03/23/16 10:00 03/23/16 10:45 Deltasone - PO 10 mg DAILY [facility] Administration Pregabalin 50 mg 03/23/16 10:00 03/23/16 10:46 Lyrica - PO 50 mg DAILY [facility] Administration Silver Sulfadiazine 1 applic 03/23/16 10:00 03/23/16 10:48 Silvadene - TP 1 applic DAILY [facility] Administration Sodium Chloride 2 spray 03/22/16 16:39 [place] Nasal [place] - NS BID PRN NASAL CONGESTION Tiotropium [place] 1 puff 03/23/16 10:00 03/23/16 10:48 Spiriva - IH 1 inh DAILY [facility] Administration Torsemide 40 mg 03/23/16 10:00 03/23/16 10:45 Demadex - PO 40 mg DAILY [facility] Administration Zinc Oxide/Panthenol/Vitamin E 1 applic 03/22/16 16:39 Balmex Cream - TP ASDIR PRN HYGEINE ASSESSMENT/PLAN: 75 year-old man with a PMH of HTN, PVD, COPD, CKD (baseline Cr 1.9), nephrolithiasis, and chronic LE lymphedema. Admitted for acute renal failure ( hyperkalemia) and respiratory distress. # Acute on chronic renal failure -Permacath placed dialysis today most likely -limit fluid intake to 1L per day due to SOB. -137/3.6 yesterday, improved compared to yesterday (baseline 1.8-1.9) -c/w torsemide 40 mg po qd # Acute COPD exacerbation with hypercapnic respiratory failure -SOB today but on bipap. -brovana, albuterol neb q4h PRN, albuterol neb standing qid -prednisone 10 mg PO qd (day 2 today at 10 mg) -bipap as necessary #SOB -Resp virus panel (02/28) - RSV positive - can remove droplet precautions. -diuresis with torsemide 40 mg po qd -s/p R and L thoracentesis -BiPap as necessary #Cellulitis of B/L LE -improving -clindamycin 300 mg IV q8 (day 4) -aztreonam 0.5 g IV q8 (day 4) # Constipation -If required, can give mineral oil enema # Anemia, microcytic -Anemia of chronic disease secondary to CKD -Hgb 8.2 yesterday (s/p 4 unit PRBC this admission); -Epoetin 20,000 units SQ MWF -FOBT positive # HTN -goal systolic BP 120-140 -norvasc 10 mg po qd # CHF (diastolic) -torsemide 40 mg qd # Hx of Depression -c/w cymbalta 20mg #Neuropathy -lyrica 50 mg PO qd # CAD -ASA on hold due to low platelet count -prasugrel 10 mg PO qd on hold due to low platelet count -continue prasugrel until 04/2016 #. FEN -Renal diabetic/sodium controlled diet. # Dispo: monitor on floors. Low threshold for ICU. Problem List - Problems (1) Acute kidney failure Code(s): N17.9 - ACUTE KIDNEY FAILURE, UNSPECIFIED Qualifiers: Qualified Code(s): N17.9 - Acute kidney failure, unspecified (2) COPD exacerbation Code(s): J44.1 - CHRONIC OBSTRUCTIVE PULMONARY DISEASE W (ACUTE) EXACERBATION (3) Hyperkalemia Code(s): E87.5 - HYPERKALEMIA (4) Acute and chronic respiratory failure ([id number]) Code(s): J96.20 - ACUTE AND CHR RESP FAILURE, UNSP W HYPOXIA OR HYPERCAPNIA Qualifiers: Qualified Code(s): J96.21 - Acute and chronic respiratory failure with hypoxia (5) Acute exacerbation of chronic obstructive pulmonary disease (COPD) Code(s): J44.1 - CHRONIC OBSTRUCTIVE PULMONARY DISEASE W (ACUTE) EXACERBATION (6) Acute on chronic diastolic (congestive) heart failure Code(s): I50.33 - ACUTE ON CHRONIC DIASTOLIC (CONGESTIVE) HEART FAILURE (7) Anxiety and depression Code(s): F41.9 - ANXIETY DISORDER, UNSPECIFIED F32.9 - MAJOR DEPRESSIVE DISORDER, SINGLE EPISODE, UNSPECIFIED (8) Cellulitis Code(s): L03.90 - CELLULITIS, UNSPECIFIED (9) Chronic kidney disease (CKD) Code(s): N18.9 - CHRONIC KIDNEY DISEASE, UNSPECIFIED Qualifiers: Qualified Code(s): N18.9 - Chronic kidney disease, unspecified (10) Diastolic CHF Code(s): I50.30 - UNSPECIFIED DIASTOLIC (CONGESTIVE) HEART FAILURE (11) Hyperlipidemia Code(s): E78.5 - HYPERLIPIDEMIA, UNSPECIFIED (12) Hypertension Code(s): I10 - ESSENTIAL (PRIMARY) HYPERTENSION (13) Obesities, morbid Code(s): E66.01 - MORBID (SEVERE) OBESITY DUE TO EXCESS CALORIES Qualifiers: Qualified Code(s): E66.2 - Morbid (severe) obesity with alveolar hypoventilation (14) Respiratory failure with hypoxia and hypercapnia Code(s): J96.91 - RESPIRATORY FAILURE, UNSPECIFIED WITH HYPOXIA J96.92 - RESPIRATORY FAILURE, UNSPECIFIED WITH HYPERCAPNIA Qualifiers: Qualified Code(s): J96.21 - Acute and chronic respiratory failure with hypoxia; J96.22 - Acute and chronic respiratory failure with hypercapnia (15) Shortness of breath Code(s): R06.02 - SHORTNESS OF BREATH (16) Hematoma Code(s): T14.8 - OTHER INJURY OF UNSPECIFIED BODY REGION Visit type - Emergency Visit Emergency Visit: Yes ED Registration Date: 02/18/16 Care time: The patient presented to the Emergency Department on the above date and was hospitalized for further evaluation of their emergent condition. - New Patient This patient is new to me today: No - Critical Care Critical Care patient: No
[2016-03-23 14:31] LABS: MCH 26.1 pg (25.7-33.7); MCHC 30.7 g/dl (32.0-35.9); MEAN PLT VOLUME 9.6 fl (7.5-11.1); PLATELET COUNT 64 K/MM3 (134-434); RDW 20.6 % (11.9-15.9); WHITE BLOOD COUNT 4.2 K/mm3 (4.0-10.0)
--- NOTE | 2016-03-23 14:42 | PN ---
Progress Note (short form) - Note Progress Note: Renal Follow up for KARLOS Pt seen and examined at the bedside on BIPAP comfortable s/p dialysis yesterday -> tolerated it well Vital Signs Temperature 98.4 F 03/23/16 06:00 Pulse Rate 88 03/23/16 11:02 Respiratory Rate 22 03/23/16 06:00 Blood Pressure 157/69 03/23/16 06:00 O2 Sat by Pulse Oximetry (%) 95 03/23/16 11:02 Intake & Output 03/20/16 03/21/16 03/22/16 03/23/16 23:59 23:59 23:59 23:59 Intake Total 1550 694 150 Output Total 800 2600 3510 Balance 709 -7665 -1207 Gen: NAD CVS: RRR No M/R Lungs: dec BS throughout the lung rey Abd: Soft NT + Mild distension Ext: > 3+ edema, no cyanosis or clubbing CBC, BMP 03/23/16 13:40 BMP pending Current Medications Acetaminophen (Tylenol -) 650 mg PO Q6H PRN PRN Reason: FEVER OR PAIN Acetylcysteine (Mucomyst 20 Oral / Inh Use Only*) 200 mg NEB BID [facility] Last Admin: 03/23/16 10:00 Dose: 200 mg Amlodipine Besylate (Norvasc -) 10 mg PO DAILY [facility] Last Admin: 03/23/16 10:47 Dose: 10 mg Arformoterol Tartrate (Brovana (Restricted To Pulmonology/Resp) -) 1 amp NEB BID [facility] Last Admin: 03/23/16 09:59 Dose: 1 amp Calcitriol (Rocaltrol -) 0.25 mcg PO DAILY [facility] Last Admin: 03/23/16 10:47 Dose: 0.25 mcg Calcium Acetate (Phoslo -) 1,334 mg PO TIDCM [facility] Last Admin: 03/23/16 10:43 Dose: 1,334 mg Docusate Sodium (Colace -) 100 mg PO BID PRN PRN Reason: CONSTIPATION Last Admin: 03/22/16 22:11 Dose: 100 mg Duloxetine HCl (Cymbalta -) 20 mg PO DAILY [facility] Last Admin: 03/23/16 10:45 Dose: 20 mg Epoetin [place] (Procrit -) 20,000 unit SQ MoWeFr@1000 [facility] Aztreonam 0.5 gm/ Dextrose 50 mls @ 100 mls/hr IVPB Q8H-IV [facility] Last Admin: 03/23/16 10:44 Dose: 100 mls/hr Clindamycin Phosphate 300 mg/ (Dextrose) 50 mls @ 104 mls/hr IVPB Q8H-IV [facility] Last Admin: 03/23/16 10:44 Dose: 104 mls/hr Lactobacillus Acidophilus (Bacid -) 1 tab PO DAILY [facility] Last Admin: 03/23/16 10:44 Dose: 1 tab Morphine Sulfate (Morphine Injection -) 1 mg IVPUSH Q4H PRN PRN Reason: PAIN Pantoprazole Sodium (Protonix -) 40 mg PO DAILY [facility] Last Admin: 03/23/16 10:47 Dose: 40 mg Polyethylene Glycol (Miralax (For Daily Use) -) 17 gm PO DAILY [facility] Last Admin: 03/23/16 10:46 Dose: 17 gm Prednisone (Deltasone -) 10 mg PO DAILY [facility] Last Admin: 03/23/16 10:45 Dose: 10 mg Pregabalin (Lyrica -) 50 mg PO DAILY [facility] Last Admin: 03/23/16 10:46 Dose: 50 mg Silver Sulfadiazine (Silvadene -) 1 applic TP DAILY [facility] Last Admin: 03/23/16 10:48 Dose: 1 applic Sodium Chloride ([place] Nasal [place] -) 2 spray NS BID PRN PRN Reason: NASAL CONGESTION Tiotropium [place] (Spiriva -) 1 puff IH DAILY [facility] Last Admin: 03/23/16 10:48 Dose: 1 inh Torsemide (Demadex -) 40 mg PO DAILY [facility] Last Admin: 03/23/16 10:45 Dose: 40 mg Zinc Oxide/Panthenol/Vitamin E (Balmex Cream -) 1 applic TP ASDIR PRN PRN Reason: HYGEINE A/P 75 year old Gentleman with PMhx of CKD Stage 3 (baseline Cr 1.9), Hx of Nephrolithiasis, Hypertension, COPD, CHF, PVD, Chronic LE lymph edema who was sent into the ED from wound care for increased lethargy and decreased urination for several days with KARLOS with BUN/Cr of 115/7.2 and K of 6.5 #Acute Renal Failure with incomplete recovery now with fluid overload requiring dialysis again For dialysis again today UF as tolerated will continue aggressive UF with HD with goal of achiving evolemia maintain on diuretics Melvin Johnson DO
[2016-03-23 15:05] LABS: CALCIUM 7.5 mg/dL (8.5-10.1); CREATININE 2.7 mg/dL (0.7-1.3); PHOSPHOROUS 3.5 mg/dL (2.5-4.9)
--- NOTE | 2016-03-23 15:49 | PN ---
Teaching Attending Note Name of Resident: Freddie Strickland ATTENDING PHYSICIAN STATEMENT I saw and evaluated the patient. I reviewed the resident's note and discussed the case with the resident. I agree with the resident's findings and plan as documented. SUBJECTIVE: cont to be SOB with minimal activities OBJECTIVE: NAD , BIPAP on Cv : RRR Lungs : decreased breath sounds at bases ext : 3 + pitting edema , and thick skin with no discharge . erythematous skin over legs ASSESSMENT AND PLAN: 75 year-old man with a PMHx of HTN, PVD, COPD, CKD (baseline Cr 1.8), nephrolithiasis, D CHF , CAD s/p stenting in 03/23 and chronic LE lymphedema. presented with SOB and was found to have acute hypercapnic resp failure with acute renal failure . 1- Acute hypercapnic resp failure due to COPD exa and diastolic heart failure and pleural effusions. cont steoids taper cont diuresis . for HD today for volume mgt s/p R thoracocentesis 03/21. per [facility] the fluid is exudative , but cx Neg and cytology neg 2- cellultis of LE : cont aztreonama and clinda 3- KARLOS on CKD: on cacitriol and phoslo dialysis to be resumed 4- microcytic anemia. s/p transfusion. FOBT positive and has thrombocytopenia . will not resume ASA and effient now 5- Thrombocytopenia : nl plt at admission . 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 serotonin release assay pending . per heme , likely false positive 6- HTN: better . cont norvasc 7- CAD : stenting 03/23 . hold asa and effient due to thrombocytopenia 8- Full code .
--- NOTE | 2016-03-23 16:01 | PN ---
Progress Note, Physician History of Present Illness: patient stable no events patient for dialysis catheter going to get dialysis today - Current Medication List Current Medications: Active Medications Acetaminophen (Tylenol -) 650 mg PO Q6H PRN PRN Reason: FEVER OR PAIN Acetylcysteine (Mucomyst 20 Oral / Inh Use Only*) 200 mg NEB BID [facility] Last Admin: 03/23/16 10:00 Dose: 200 mg Amlodipine Besylate (Norvasc -) 10 mg PO DAILY [facility] Last Admin: 03/23/16 10:47 Dose: 10 mg Arformoterol Tartrate (Brovana (Restricted To Pulmonology/Resp) -) 1 amp NEB BID [facility] Last Admin: 03/23/16 09:59 Dose: 1 amp Calcitriol (Rocaltrol -) 0.25 mcg PO DAILY [facility] Last Admin: 03/23/16 10:47 Dose: 0.25 mcg Calcium Acetate (Phoslo -) 1,334 mg PO TIDCM [facility] Last Admin: 03/23/16 15:01 Dose: Not Given Docusate Sodium (Colace -) 100 mg PO BID PRN PRN Reason: CONSTIPATION Last Admin: 03/22/16 22:11 Dose: 100 mg Duloxetine HCl (Cymbalta -) 20 mg PO DAILY [facility] Last Admin: 03/23/16 10:45 Dose: 20 mg Epoetin Keith (Procrit -) 20,000 unit SQ MoWeFr@1000 [facility] Aztreonam 0.5 gm/ Dextrose 50 mls @ 100 mls/hr IVPB Q8H-IV [facility] Last Admin: 03/23/16 10:44 Dose: 100 mls/hr Clindamycin Phosphate 300 mg/ (Dextrose) 50 mls @ 104 mls/hr IVPB Q8H-IV [facility] Last Admin: 03/23/16 10:44 Dose: 104 mls/hr Lactobacillus Acidophilus (Bacid -) 1 tab PO DAILY [facility] Last Admin: 03/23/16 10:44 Dose: 1 tab Morphine Sulfate (Morphine Injection -) 1 mg IVPUSH Q4H PRN PRN Reason: PAIN Pantoprazole Sodium (Protonix -) 40 mg PO DAILY [facility] Last Admin: 03/23/16 10:47 Dose: 40 mg Polyethylene Glycol (Miralax (For Daily Use) -) 17 gm PO DAILY [facility] Last Admin: 03/23/16 10:46 Dose: 17 gm Prednisone (Deltasone -) 10 mg PO DAILY [facility] Last Admin: 03/23/16 10:45 Dose: 10 mg Pregabalin (Lyrica -) 50 mg PO DAILY [facility] Last Admin: 03/23/16 10:46 Dose: 50 mg Silver Sulfadiazine (Silvadene -) 1 applic TP DAILY [facility] Last Admin: 03/23/16 10:48 Dose: 1 applic Sodium Chloride ([place] Nasal [place] -) 2 spray NS BID PRN PRN Reason: NASAL CONGESTION Tiotropium [place] (Spiriva -) 1 puff IH DAILY [facility] Last Admin: 03/23/16 10:48 Dose: 1 inh Torsemide (Demadex -) 40 mg PO DAILY [facility] Last Admin: 03/23/16 10:45 Dose: 40 mg Zinc Oxide/Panthenol/Vitamin E (Balmex Cream -) 1 applic TP ASDIR PRN PRN Reason: HYGEINE - Objective Vital Signs: Vital Signs Temperature 98.4 F 03/23/16 06:00 Pulse Rate 70 03/23/16 14:30 Respiratory Rate 18 03/23/16 14:30 Blood Pressure 134/76 03/23/16 14:30 O2 Sat by Pulse Oximetry (%) 95 03/23/16 11:02 Constitutional: Yes: No Distress, Calm Neck: Yes: Supple Cardiovascular: Yes: Regular Rate and Rhythm Respiratory: Yes: Poor Air Entry, Rhonchi Gastrointestinal: Yes: Normal Bowel Sounds, Soft Musculoskeletal: Yes: Other Extremities: Yes: Erythema (bilateral erythema on the legs) Edema: LLE: 2+, RLE: 2+ Neurological: Yes: Alert, Oriented Psychiatric: Yes: Alert Labs: CBC, BMP 03/23/16 13:40 03/23/16 13:40 INR, PTT INR 1.16 (0.82-1.09) H 03/20/16 09:20 Fibrinogen 547.0 mg/dL (238-498) H 03/17/16 06:30 Assessment/Plan 75 year-old man with a PMH of HTN, PVD, COPD, CKD (baseline Cr 1.9), nephrolithiasis, and chronic LE lymphedema. Admitted in acute renal failure. Acute on chronic renal failure Hyperkalemia Sepsis s Hypertension Peripheral vascular disease Hypercarbic respiratory failure COPD bilateral cellulitis of the legs rsv lung infection pleural effusion anemia plan cellulitis improving continue abx patient being transfused very weak continue close monitoring patient going to be started on dialysis
--- NOTE | 2016-03-23 16:03 | PN ---
Progress Note, Physician History of Present Illness: patient stable no events getting dialysis says he is weak and would like to walk - Current Medication List Current Medications: Active Medications Acetaminophen (Tylenol -) 650 mg PO Q6H PRN PRN Reason: FEVER OR PAIN Acetylcysteine (Mucomyst 20 Oral / Inh Use Only*) [address] [facility] Last Admin: 03/23/16 10:00 Dose: 200 mg Amlodipine Besylate (Norvasc -) [address] [facility] Last Admin: 03/23/16 10:47 Dose: 10 mg Arformoterol Tartrate (Brovana (Restricted To Pulmonology/Resp) -) [address] [facility] Last Admin: 03/23/16 09:59 Dose: 1 amp Calcitriol (Rocaltrol -) 0.[address] [facility] Last Admin: 03/23/16 10:47 Dose: 0.25 mcg Calcium Acetate (Phoslo -) 1,[address] [facility] Last Admin: 03/23/16 15:01 Dose: Not Given Docusate Sodium (Colace -) 100 mg PO BID PRN PRN Reason: CONSTIPATION Last Admin: 03/22/16 22:11 Dose: 100 mg Duloxetine HCl (Cymbalta -) [address] [facility] Last Admin: 03/23/16 10:45 Dose: 20 mg Epoetin Keith (Procrit -) 20,000 unit SQ MoWeFr@1000 [facility] Aztreonam 0.5 gm/ Dextrose 50 mls @ 100 mls/hr IVPB Q8H-IV [facility] Last Admin: 03/23/16 10:44 Dose: 100 mls/hr Clindamycin Phosphate 300 mg/ (Dextrose) 50 mls @ 104 mls/hr IVPB Q8H-IV [facility] Last Admin: 03/23/16 10:44 Dose: 104 mls/hr Lactobacillus Acidophilus (Bacid -) [address] [facility] Last Admin: 03/23/16 10:44 Dose: 1 tab Morphine Sulfate (Morphine Injection -) 1 mg IVPUSH Q4H PRN PRN Reason: PAIN Pantoprazole Sodium (Protonix -) [address] [facility] Last Admin: 03/23/16 10:47 Dose: 40 mg Polyethylene Glycol (Miralax (For Daily Use) -) [address] [facility] Last Admin: 03/23/16 10:46 Dose: 17 gm Prednisone (Deltasone -) [address] [facility] Last Admin: 03/23/16 10:45 Dose: 10 mg Pregabalin (Lyrica -) [address] [facility] Last Admin: 03/23/16 10:46 Dose: 50 mg Silver Sulfadiazine (Silvadene -) [address] [facility] Last Admin: 03/23/16 10:48 Dose: 1 applic Sodium Chloride ([place] Nasal [place] -) 2 spray NS BID PRN PRN Reason: NASAL CONGESTION Tiotropium [place] (Spiriva -) [address] [facility] Last Admin: 03/23/16 10:48 Dose: 1 inh Torsemide (Demadex -) [address] [facility] Last Admin: 03/23/16 10:45 Dose: 40 mg Zinc Oxide/Panthenol/Vitamin E (Balmex Cream -) 1 applic TP ASDIR PRN PRN Reason: HYGEINE - Objective Vital Signs: Vital Signs Temperature 98.4 F 03/23/16 06:00 Pulse Rate 70 03/23/16 14:30 Respiratory Rate 18 03/23/16 14:30 Blood Pressure 134/76 03/23/16 14:30 O2 Sat by Pulse Oximetry (%) 95 03/23/16 11:02 Constitutional: Yes: No Distress, Calm Cardiovascular: Yes: Regular Rate and Rhythm Respiratory: Yes: Regular, Poor Air Entry, Rhonchi Gastrointestinal: Yes: Normal Bowel Sounds, Soft Extremities: Yes: Other (bilateral erythema and swelling) Edema: LLE: 2+, RLE: 2+ Integumentary: Yes: Erythema, Other Neurological: Yes: Alert Psychiatric: Yes: Alert Labs: CBC, BMP 03/23/16 13:40 03/23/16 13:40 INR, PTT INR 1.16 (0.82-1.09) H 03/20/16 09:20 Fibrinogen 547.0 mg/dL (238-498) H 03/17/16 06:30 Assessment/Plan 75 year-old man with a PMH of HTN, PVD, COPD, CKD (baseline Cr 1.9), nephrolithiasis, and chronic LE lymphedema. Admitted in acute renal failure. Acute on chronic renal failure Hyperkalemia Sepsis s Hypertension Peripheral vascular disease Hypercarbic respiratory failure COPD bilateral cellulitis of the legs rsv lung infection pleural effusion anemia plan cellulitis improving continue abx very weak continue close monitoring dialysis being done
--- NOTE | 2016-03-23 19:38 | OP ---
DATE OF OPERATION: 03/22/2016 PREOPERATIVE DIAGNOSIS: Fluid overload. POSTOPERATIVE DIAGNOSIS: Fluid overload. PROCEDURE: Insertion of Perma-Cath. SURGEON: Dante Ruth DO ANESTHESIA: Fractional. ESTIMATED BLOOD LOSS: 10 mL. DESCRIPTION OF PROCEDURE: The patient 75-year-old male that comes in that is fluid overloaded. Medicine has been trying to diurese the patient, but the patient is having respiratory distress and now needs a Perma-Cath insertion and dialysis in order to help to diurese the patient via hemodialysis. The patient's family was consented for the procedure, understanding all risks, benefits, and alternatives. The patient was taken to the operating room and once in the operating room, was placed on the operating table in the supine manner. The right neck and chest were prepped and draped in a sterile surgical manner. Under ultrasound, guidance, we visualized the right internal jugular vein and 10 mL of 1% lidocaine was injected over the vein. We then took a micropuncture needle and punctured the right internal jugular vein under ultrasound guidance and a micropuncture needle wire inserted under fluoroscopy. We then placed a 5-Luxembourger sheath and a 0.035 floppy guidewire was then placed. We then injected 10 mL of 1% lidocaine above and below the clavicle. We then took an 11 blade and made a 1-cm incision at the puncture site. We then took a 15 blade and made a 1-cm incision below the clavicle. We then tunneled the Perma-Cath up to the puncture site. We then placed our breakaway sheath over the guidewire into the vein under fluoroscopy and the cannula and guidewire were removed. Catheter was then placed inside the sheath. The sheath was broken away as the catheter was placed inside the vein. The neck of the catheter was nice and smooth. The tip of the catheter was located outside the right atrium. We then samantha back on each port of the catheter and there was good flow. Heparinized saline was injected and 2,000 units of IV heparin was injected into each port. Biosyn 4-0 was used and 2 simple sutures were placed at the puncture site. Nylon 3-0 was used and the catheter was attached to the skin. Biopatch, Steri-Strips, 4 x 4, and Tegaderm were placed. The patient tolerated the procedure with no complications. The patient was transferred to the PACU in stable condition. DANTE RUTH DO [employer]/[id number]
[2016-03-24] MEDS: AZTREONAM 0.5 GM in DEXTROSE 5%-WATER - 50 ML IVPB SCH ×3 (02:08→18:17)
[2016-03-24] MEDS: CLINDAMYCIN IVPB 300 MG in DEXTROSE 5%-WATER - 48 ML IVPB SCH ×3 (02:09→17:16)
[2016-03-24 06:06] LABS: HEP B SURFACE AB Non Reactive (.)
[2016-03-24 07:31] LABS: MCH 26.5 pg (25.7-33.7); MCHC 31.2 g/dl (32.0-35.9); MEAN PLT VOLUME 9.6 fl (7.5-11.1); PLATELET COUNT 67 K/MM3 (134-434); RDW 20.8 % (11.9-15.9); WHITE BLOOD COUNT 5.1 K/mm3 (4.0-10.0)
[2016-03-24 08:37] LABS: CALCIUM 7.5 mg/dL (8.5-10.1); CREATININE 2.1 mg/dL (0.7-1.3)
[2016-03-24] MEDS: CALCIUM ACETATE 667 MG CAPSULE (FP) PO SCH ×3 (08:38→17:15)
[2016-03-24] MEDS ORDERED: PT OWN MED DRAWER 7, Y5N ONE ×4 (09:06→19:18)
[2016-03-24] MEDS: CALCITRIOL 0.25 MCG CAPSULE (FP) PO SCH (09:08)
[2016-03-24] MEDS: TIOTROPIUM BROMIDE 18 MCG/INH (DEVICE W/ 5 CAPSULES) IH SCH (09:09)
[2016-03-24] MEDS: amLODIPine BESYLATE 10 MG TABLET (FP) PO SCH (09:09)
[2016-03-24] MEDS: LACTOBACILLUS ACIDOPHILUS 1 EACH TAB (FP) PO SCH (09:09)
[2016-03-24] MEDS: PANTOPRAZOLE 40 MG TABLET (FP) PO SCH (09:09)
[2016-03-24] MEDS: predniSONE 10 MG TABLET (UD) PO SCH (09:09)
[2016-03-24] MEDS: TORSEMIDE 20 MG TABLET (FP) PO SCH (09:09)
[2016-03-24] MEDS: DULoxetine HCL 20 MG CAPSULE.DR (FP) PO SCH (09:10)
[2016-03-24] MEDS: PREGABALIN 50 MG CAPSULE PO SCH (09:10)
[2016-03-24] MEDS: POLYETHYLENE GLYCOL 3350 119 GM BTL PO SCH (09:13)
[2016-03-24] MEDS: morphine CARPU-JECT 2 MG/1 ML DISP.SYRIN IVPUSH PRN (09:27)
[2016-03-24] MEDS: ACETYLCYSTEINE 20% 200MG/ML 4 ML VIAL *FOR ORAL / INH USE ONLY NEB SCH ×2 (10:45→22:14)
[2016-03-24] MEDS: ARFORMOTEROL TARTRATE 15 MCG/2 ML VIAL NEB SCH ×2 (10:45→22:14)
--- NOTE | 2016-03-24 11:08 | PN ---
Progress Note (short form) - Note Progress Note: Renal Follow up for KARLOS Pt seen and examined at dialysis isolated UF with goal removal of 2L in 2 hours pt continues to have sob, using bipap currently no chest pain, fever, chills, abd pain, N/V lilly in place with yellow urine Vital Signs Temperature 98.8 F 03/24/16 09:40 Pulse Rate 97 H 03/24/16 10:45 Respiratory Rate 18 03/24/16 10:45 Blood Pressure 145/70 03/24/16 10:45 O2 Sat by Pulse Oximetry (%) 95 03/23/16 22:25 Gen: NAD CVS: RRR No M/R Lungs: dec BS throughout the lung rey Abd: Soft NT + Mild distension Ext: > 3+ edema, no cyanosis or clubbing CBC, BMP 03/24/16 07:22 03/24/16 07:22 Laboratory Tests 03/24/16 07:22 Calcium 7.5 L Current Medications Acetaminophen (Tylenol -) 650 mg PO Q6H PRN PRN Reason: FEVER OR PAIN Acetylcysteine (Mucomyst 20 Oral / Inh Use Only*) 200 mg NEB BID [facility] Last Admin: 03/23/16 22:25 Dose: 200 mg Amlodipine Besylate (Norvasc -) 10 mg PO DAILY [facility] Last Admin: 03/24/16 09:09 Dose: 10 mg Arformoterol Tartrate (Brovana (Restricted To Pulmonology/Resp) -) 1 amp NEB BID [facility] Last Admin: 03/23/16 22:25 Dose: 1 amp Calcitriol (Rocaltrol -) 0.25 mcg PO DAILY [facility] Last Admin: 03/24/16 09:08 Dose: 0.25 mcg Calcium Acetate (Phoslo -) 1,334 mg PO TIDCM [facility] Last Admin: 03/24/16 08:38 Dose: 1,334 mg Docusate Sodium (Colace -) 100 mg PO BID PRN PRN Reason: CONSTIPATION Last Admin: 03/22/16 22:11 Dose: 100 mg Duloxetine HCl (Cymbalta -) 20 mg PO DAILY [facility] Last Admin: 03/24/16 09:10 Dose: 20 mg Epoetin Keith (Procrit -) 20,000 unit SQ MoWeFr@1000 [facility] Aztreonam 0.5 gm/ Dextrose 50 mls @ 100 mls/hr IVPB Q8H-IV [facility] Last Admin: 03/24/16 02:08 Dose: 100 mls/hr Clindamycin Phosphate 300 mg/ (Dextrose) 50 mls @ 104 mls/hr IVPB Q8H-IV [facility] Last Admin: 03/24/16 09:10 Dose: 104 mls/hr Lactobacillus Acidophilus (Bacid -) 1 tab PO DAILY [facility] Last Admin: 03/24/16 09:09 Dose: 1 tab Morphine Sulfate (Morphine Injection -) 1 mg IVPUSH Q4H PRN PRN Reason: PAIN Last Admin: 03/24/16 09:27 Dose: 1 mg Pantoprazole Sodium (Protonix -) 40 mg PO DAILY [facility] Last Admin: 03/24/16 09:09 Dose: 40 mg Polyethylene Glycol (Miralax (For Daily Use) -) 17 gm PO DAILY [facility] Last Admin: 03/24/16 09:13 Dose: 17 gm Prednisone (Deltasone -) 10 mg PO DAILY [facility] Last Admin: 03/24/16 09:09 Dose: 10 mg Pregabalin (Lyrica -) 50 mg PO DAILY [facility] Last Admin: 03/24/16 09:10 Dose: 50 mg Silver Sulfadiazine (Silvadene -) 1 applic TP DAILY [facility] Last Admin: 03/23/16 10:48 Dose: 1 applic Sodium Chloride ([place] Nasal [place] -) 2 spray NS BID PRN PRN Reason: NASAL CONGESTION Tiotropium [place] (Spiriva -) 1 puff IH DAILY [facility] Last Admin: 03/24/16 09:09 Dose: 1 puff Torsemide (Demadex -) 40 mg PO DAILY [facility] Last Admin: 03/24/16 09:09 Dose: 40 mg Zinc Oxide/Panthenol/Vitamin E (Balmex Cream -) 1 applic TP ASDIR PRN PRN Reason: HYGEINE A/P 75 year old Gentleman with PMhx of CKD Stage 3 (baseline Cr 1.9), Hx of Nephrolithiasis, Hypertension, COPD, CHF, PVD, Chronic LE lymph edema who was sent into the ED from wound care for increased lethargy and decreased urination for several days with KARLOS with BUN/Cr of 115/7.2 and K of 6.5 #Acute Renal Failure with incomplete recovery now with fluid overload requiring dialysis again Currently getting isolated UF Goal is 2L removal Will plan for regular dialysis tomorrow with additional UF as tolerated Continue Torsemide to maintain urine output #Pleural effusions/Resp Failure on BIPAP UF with HD, Diuretics s/p thoracentesis #Anemia Tranfuse as needed to keep Hgb > 8 Will continue Procrit 15055 3x weekly #LE edema/Cellulitis Abx as per ID Wound care Compression Melvin Johnson DO
--- NOTE | 2016-03-24 13:20 | PN ---
Progress Note, Physician History of Present Illness: patient stable no events still not feeling too well on nasal cannula - Current Medication List Current Medications: Active Medications Acetaminophen (Tylenol -) 650 mg PO Q6H PRN PRN Reason: FEVER OR PAIN Acetylcysteine (Mucomyst 20 Oral / Inh Use Only*) 200 mg NEB BID [facility] Last Admin: 03/24/16 10:45 Dose: 200 mg Amlodipine Besylate (Norvasc -) 10 mg PO DAILY [facility] Last Admin: 03/24/16 09:09 Dose: 10 mg Arformoterol Tartrate (Brovana (Restricted To Pulmonology/Resp) -) 1 amp NEB BID [facility] Last Admin: 03/24/16 10:45 Dose: 1 amp Calcitriol (Rocaltrol -) 0.25 mcg PO DAILY [facility] Last Admin: 03/24/16 09:08 Dose: 0.25 mcg Calcium Acetate (Phoslo -) 1,334 mg PO TIDCM [facility] Last Admin: 03/24/16 12:47 Dose: 1,334 mg Docusate Sodium (Colace -) 100 mg PO BID PRN PRN Reason: CONSTIPATION Last Admin: 03/22/16 22:11 Dose: 100 mg Duloxetine HCl (Cymbalta -) 20 mg PO DAILY [facility] Last Admin: 03/24/16 09:10 Dose: 20 mg Epoetin [place] (Procrit -) 20,000 unit SQ MoWeFr@1000 [facility] Aztreonam 0.5 gm/ Dextrose 50 mls @ 100 mls/hr IVPB Q8H-IV [facility] Last Admin: 03/24/16 12:47 Dose: 100 mls/hr Clindamycin Phosphate 300 mg/ (Dextrose) 50 mls @ 104 mls/hr IVPB Q8H-IV [facility] Last Admin: 03/24/16 09:10 Dose: 104 mls/hr Lactobacillus Acidophilus (Bacid -) 1 tab PO DAILY [facility] Last Admin: 03/24/16 09:09 Dose: 1 tab Morphine Sulfate (Morphine Injection -) 1 mg IVPUSH Q4H PRN PRN Reason: PAIN Last Admin: 03/24/16 09:27 Dose: 1 mg Pantoprazole Sodium (Protonix -) 40 mg PO DAILY [facility] Last Admin: 03/24/16 09:09 Dose: 40 mg Polyethylene Glycol (Miralax (For Daily Use) -) 17 gm PO DAILY [facility] Last Admin: 03/24/16 09:13 Dose: 17 gm Prednisone (Deltasone -) 10 mg PO DAILY [facility] Last Admin: 03/24/16 09:09 Dose: 10 mg Pregabalin (Lyrica -) 50 mg PO DAILY [facility] Last Admin: 03/24/16 09:10 Dose: 50 mg Silver Sulfadiazine (Silvadene -) 1 applic TP DAILY [facility] Last Admin: 03/23/16 10:48 Dose: 1 applic Sodium Chloride ([place] Nasal [place] -) 2 spray NS BID PRN PRN Reason: NASAL CONGESTION Tiotropium [place] (Spiriva -) 1 puff IH DAILY [facility] Last Admin: 03/24/16 09:09 Dose: 1 puff Torsemide (Demadex -) 40 mg PO DAILY [facility] Last Admin: 03/24/16 09:09 Dose: 40 mg Zinc Oxide/Panthenol/Vitamin E (Balmex Cream -) 1 applic TP ASDIR PRN PRN Reason: HYGEINE - Objective Vital Signs: Vital Signs Temperature 98.1 F 03/24/16 10:00 Pulse Rate 87 03/24/16 12:29 Respiratory Rate 18 03/24/16 12:29 Blood Pressure 141/73 03/24/16 12:29 O2 Sat by Pulse Oximetry (%) 96 03/24/16 10:50 Constitutional: Yes: Calm, Mild Distress Cardiovascular: Yes: Regular Rate and Rhythm Respiratory: Yes: Regular, On Nasal O2, Poor Air Entry, Rhonchi Gastrointestinal: Yes: Normal Bowel Sounds, Soft Musculoskeletal: Yes: Other Extremities: Yes: Other Edema: LLE: 1+, RLE: 1+ Wound/Incision: Yes: Dressing Dry and Intact Neurological: Yes: Alert, Oriented Psychiatric: Yes: Alert Labs: CBC, BMP 03/24/16 07:22 03/24/16 07:22 INR, PTT INR 1.16 (0.82-1.09) H 03/20/16 09:20 Fibrinogen 547.0 mg/dL (238-498) H 03/17/16 06:30 Assessment/Plan 75 year-old man with a PMH of HTN, PVD, COPD, CKD (baseline Cr 1.9), nephrolithiasis, and chronic LE lymphedema. Admitted in acute renal failure. Acute on chronic renal failure Hyperkalemia Sepsis s Hypertension Peripheral vascular disease Hypercarbic respiratory failure COPD bilateral cellulitis of the legs rsv lung infection pleural effusion anemia plan cellulitis improving continue abx very weak continue close monitoring consider physio
[2016-03-24 14:18] LABS: HIGH DOSE HEPARIN SRA 1 % (0-20); LOW DOSE HEPARIN SRA 3 % (0-20)
--- NOTE | 2016-03-24 14:24 | PN ---
Progress Note, Physician History of Present Illness: Pt on BIPAP most of the time. Just completed dialysis. NAD. Oriented and alert. - Current Medication List Current Medications: Active Medications Acetaminophen (Tylenol -) 650 mg PO Q6H PRN PRN Reason: FEVER OR PAIN Acetylcysteine (Mucomyst 20 Oral / Inh Use Only*) 200 mg NEB BID [facility] Last Admin: 03/24/16 10:45 Dose: 200 mg Amlodipine Besylate (Norvasc -) 10 mg PO DAILY [facility] Last Admin: 03/24/16 09:09 Dose: 10 mg Arformoterol Tartrate (Brovana (Restricted To Pulmonology/Resp) -) 1 amp NEB BID [facility] Last Admin: 03/24/16 10:45 Dose: 1 amp Calcitriol (Rocaltrol -) 0.25 mcg PO DAILY [facility] Last Admin: 03/24/16 09:08 Dose: 0.25 mcg Calcium Acetate (Phoslo -) 1,334 mg PO TIDCM [facility] Last Admin: 03/24/16 12:47 Dose: 1,334 mg Docusate Sodium (Colace -) 100 mg PO BID PRN PRN Reason: CONSTIPATION Last Admin: 03/22/16 22:11 Dose: 100 mg Duloxetine HCl (Cymbalta -) 20 mg PO DAILY [facility] Last Admin: 03/24/16 09:10 Dose: 20 mg Epoetin Keith (Procrit -) 20,000 unit SQ MoWeFr@1000 [facility] Aztreonam 0.5 gm/ Dextrose 50 mls @ 100 mls/hr IVPB Q8H-IV [facility] Last Admin: 03/24/16 12:47 Dose: 100 mls/hr Clindamycin Phosphate 300 mg/ (Dextrose) 50 mls @ 104 mls/hr IVPB Q8H-IV [facility] Last Admin: 03/24/16 09:10 Dose: 104 mls/hr Lactobacillus Acidophilus (Bacid -) 1 tab PO DAILY [facility] Last Admin: 03/24/16 09:09 Dose: 1 tab Morphine Sulfate (Morphine Injection -) 1 mg IVPUSH Q4H PRN PRN Reason: PAIN Last Admin: 03/24/16 09:27 Dose: 1 mg Pantoprazole Sodium (Protonix -) 40 mg PO DAILY [facility] Last Admin: 03/24/16 09:09 Dose: 40 mg Polyethylene Glycol (Miralax (For Daily Use) -) 17 gm PO DAILY [facility] Last Admin: 03/24/16 09:13 Dose: 17 gm Prednisone (Deltasone -) 10 mg PO DAILY [facility] Last Admin: 03/24/16 09:09 Dose: 10 mg Pregabalin (Lyrica -) 50 mg PO DAILY [facility] Last Admin: 03/24/16 09:10 Dose: 50 mg Silver Sulfadiazine (Silvadene -) 1 applic TP DAILY [facility] Last Admin: 03/23/16 10:48 Dose: 1 applic Sodium Chloride ([place] Nasal [place] -) 2 spray NS BID PRN PRN Reason: NASAL CONGESTION Tiotropium [place] (Spiriva -) 1 puff IH DAILY [facility] Last Admin: 03/24/16 09:09 Dose: 1 puff Torsemide (Demadex -) 40 mg PO DAILY [facility] Last Admin: 03/24/16 09:09 Dose: 40 mg Zinc Oxide/Panthenol/Vitamin E (Balmex Cream -) 1 applic TP ASDIR PRN PRN Reason: HYGEINE - Objective Vital Signs: Vital Signs Temperature 98.1 F 03/24/16 10:00 Pulse Rate 87 03/24/16 12:29 Respiratory Rate 18 03/24/16 12:29 Blood Pressure 141/73 03/24/16 12:29 O2 Sat by Pulse Oximetry (%) 95 03/24/16 13:16 Constitutional: Yes: No Distress Eyes: No: Sclera Icterus HENT: Yes: Atraumatic Neck: Yes: Supple, Trachea Midline Respiratory: Yes: Diminished Gastrointestinal: Yes: Soft. No: Tenderness Edema: Yes (legs wrapped) Edema: LLE: 4+, RLE: 4+ Neurological: Yes: Alert, Oriented Psychiatric: Yes: Other (depressed affect) Labs: CBC, BMP 03/24/16 07:22 03/24/16 07:22 INR, PTT INR 1.16 (0.82-1.09) H 03/20/16 09:20 Fibrinogen 547.0 mg/dL (238-498) H 03/17/16 06:30 Problem List - Problems (1) COPD exacerbation Code(s): J44.1 - CHRONIC OBSTRUCTIVE PULMONARY DISEASE W (ACUTE) EXACERBATION (2) Acute and chronic respiratory failure ([id number]) Code(s): J96.20 - ACUTE AND CHR RESP FAILURE, UNSP W HYPOXIA OR HYPERCAPNIA Qualifiers: Qualified Code(s): J96.21 - Acute and chronic respiratory failure with hypoxia (3) Acute kidney failure Code(s): N17.9 - ACUTE KIDNEY FAILURE, UNSPECIFIED Qualifiers: Qualified Code(s): N17.9 - Acute kidney failure, unspecified (4) Chronic kidney disease (CKD) Code(s): N18.9 - CHRONIC KIDNEY DISEASE, UNSPECIFIED Qualifiers: Qualified Code(s): N18.9 - Chronic kidney disease, unspecified (5) Cellulitis Code(s): L03.90 - CELLULITIS, UNSPECIFIED (6) Hyperkalemia Code(s): E87.5 - HYPERKALEMIA (7) Arteriosclerotic heart disease (ASHD) Code(s): I25.10 - ATHSCL HEART DISEASE OF [place] CORONARY ARTERY W/O ANG PCTRS (8) Obesities, morbid Code(s): E66.01 - MORBID (SEVERE) OBESITY DUE TO EXCESS CALORIES Qualifiers: Qualified Code(s): E66.2 - Morbid (severe) obesity with alveolar hypoventilation Assessment/Plan I had a duscussion with pt's . She feels he is depressed. Cellulitis legs: patient on antibiotics COPD Acute on chronic hypercapnic respiratory failure-using BIPAP a large part of the time CAD; S/P stents; no chest pain or palpitations. CHF/fluid overload . Dialysis today. Respiratory status seems mildly improved today Acute Renal Failure Chronic Renal Insufficiency Plan: Torsemide Prednisone 10 mg daily inhaled bronchodilator NIPPV PRN Monitor blood counts; transfuse PRN Antibiotics per I.D. Dialysis for fluid removal per renal Psych. consult re depression.
--- NOTE | 2016-03-24 14:26 | PN ---
Progress Note, Physician Chief Complaint: just had enema no complaints platelets inching back up - Current Medication List Current Medications: Active Medications Acetaminophen (Tylenol -) 650 mg PO Q6H PRN PRN Reason: FEVER OR PAIN Acetylcysteine (Mucomyst 20 Oral / Inh Use Only*) 200 mg NEB BID [facility] Last Admin: 03/24/16 10:45 Dose: 200 mg Amlodipine Besylate (Norvasc -) 10 mg PO DAILY [facility] Last Admin: 03/24/16 09:09 Dose: 10 mg Arformoterol Tartrate (Brovana (Restricted To Pulmonology/Resp) -) 1 amp NEB BID [facility] Last Admin: 03/24/16 10:45 Dose: 1 amp Calcitriol (Rocaltrol -) 0.25 mcg PO DAILY [facility] Last Admin: 03/24/16 09:08 Dose: 0.25 mcg Calcium Acetate (Phoslo -) 1,334 mg PO TIDCM [facility] Last Admin: 03/24/16 12:47 Dose: 1,334 mg Docusate Sodium (Colace -) 100 mg PO BID PRN PRN Reason: CONSTIPATION Last Admin: 03/22/16 22:11 Dose: 100 mg Duloxetine HCl (Cymbalta -) 20 mg PO DAILY [facility] Last Admin: 03/24/16 09:10 Dose: 20 mg Epoetin [place] (Procrit -) 20,000 unit SQ MoWeFr@1000 [facility] Aztreonam 0.5 gm/ Dextrose 50 mls @ 100 mls/hr IVPB Q8H-IV [facility] Last Admin: 03/24/16 12:47 Dose: 100 mls/hr Clindamycin Phosphate 300 mg/ (Dextrose) 50 mls @ 104 mls/hr IVPB Q8H-IV [facility] Last Admin: 03/24/16 09:10 Dose: 104 mls/hr Lactobacillus Acidophilus (Bacid -) 1 tab PO DAILY [facility] Last Admin: 03/24/16 09:09 Dose: 1 tab Morphine Sulfate (Morphine Injection -) 1 mg IVPUSH Q4H PRN PRN Reason: PAIN Last Admin: 03/24/16 09:27 Dose: 1 mg Pantoprazole Sodium (Protonix -) 40 mg PO DAILY [facility] Last Admin: 03/24/16 09:09 Dose: 40 mg Polyethylene Glycol (Miralax (For Daily Use) -) 17 gm PO DAILY [facility] Last Admin: 03/24/16 09:13 Dose: 17 gm Prednisone (Deltasone -) 10 mg PO DAILY [facility] Last Admin: 03/24/16 09:09 Dose: 10 mg Pregabalin (Lyrica -) 50 mg PO DAILY [facility] Last Admin: 03/24/16 09:10 Dose: 50 mg Silver Sulfadiazine (Silvadene -) 1 applic TP DAILY [facility] Last Admin: 03/23/16 10:48 Dose: 1 applic Sodium Chloride ([place] Nasal [place] -) 2 spray NS BID PRN PRN Reason: NASAL CONGESTION Tiotropium [place] (Spiriva -) 1 puff IH DAILY [facility] Last Admin: 03/24/16 09:09 Dose: 1 puff Torsemide (Demadex -) 40 mg PO DAILY [facility] Last Admin: 03/24/16 09:09 Dose: 40 mg Zinc Oxide/Panthenol/Vitamin E (Balmex Cream -) 1 applic TP ASDIR PRN PRN Reason: HYGEINE - Objective Vital Signs: Vital Signs Temperature 98.1 F 03/24/16 10:00 Pulse Rate 87 03/24/16 12:29 Respiratory Rate 18 03/24/16 12:29 Blood Pressure 141/73 03/24/16 12:29 O2 Sat by Pulse Oximetry (%) 95 03/24/16 13:16 Constitutional: Yes: No Distress Cardiovascular: Yes: Regular Rate and Rhythm Respiratory: Yes: CTA Bilaterally Gastrointestinal: Yes: Soft, Abdomen, Obese Edema: Yes Edema: LLE: 2+, RLE: 2+ Neurological: Yes: Alert, Oriented Labs: CBC, BMP 03/24/16 07:22 03/24/16 07:22 INR, PTT INR 1.16 (0.82-1.09) H 03/20/16 09:20 Fibrinogen 547.0 mg/dL (238-498) H 03/17/16 06:30 Laboratory Tests 03/22/16 03/22/16 03/24/16 07:59 07:59 07:22 WBC 2.8 L D 5.1 Hgb 8.2 L 8.6 L Hct 27.4 L Plt Count 54 L 67 L Sodium 146 H Potassium 4.0 BUN 137 H* Creatinine 3.6 H Magnesium 2.6 H 03/24/16 07:22 WBC Hgb Hct Plt Count Sodium 146 H Potassium BUN 75 H D Creatinine 2.1 H D Magnesium Assessment/Plan Assessment/Plan Worsening thrombocytopenia of unclear etiology Acute on chronic renal failure CAD Chronic diastolic CHF RSV lung infection REC: Antiplatelet Rx has been on hold for thoracentesis and thrombocytopenia: now with platelets count inching up. Check CBC in AM: if again close to 70K, then comfortable that counts are stable and hopefully recovering. Can then resume ASA 81mg daily. Discussed w/ Hematology.
--- NOTE | 2016-03-24 15:04 | PN ---
Teaching Attending Note Name of Resident: Zachery Blum ATTENDING PHYSICIAN STATEMENT I saw and evaluated the patient. I reviewed the resident's note and discussed the case with the resident. I agree with the resident's findings and plan as documented. SUBJECTIVE: Stable SOB , no improvement from yesterday. seen while in HD OBJECTIVE: NAD , BIPAP on Cv : RRR Lungs : clear anteriorly ext : 3 + pitting edema , and thick skin with no discharge . erythematous skin over legs ASSESSMENT AND PLAN: 75 year-old man with a PMHx of HTN, PVD, COPD, CKD (baseline Cr 1.8), nephrolithiasis, D CHF , CAD s/p stenting in 03/23 and chronic LE lymphedema. presented with SOB and was found to have acute hypercapnic resp failure with acute renal failure . 1- Acute hypercapnic resp failure due to COPD exa and diastolic heart failure and pleural effusions. cont steoids taper. will change to 5 mg tomorrow fro 3-4 days then stop cont diuresis . receiving HD , again tomorrow s/p R thoracocentesis 03/21. per LDH the fluid is exudative , but cx Neg and cytology neg for malignancy 2- Cellultis of LE : cont aztreonama and clinda 3- KARLOS on CKD: on cacitriol and phoslo HD 4- Normocytic anemia. s/p transfusion. FOBT positive and has thrombocytopenia . monitor for now , as not a candidate fro Colonoscopy at this point due to the resp status 5- Thrombocytopenia : nl plt at admission . 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 serotonine release assay pending . per heme , likely false positive 6- HTN: better . cont norvasc 7- CAD : stenting 03/23 . will resume ASA if PPLT count cont to increase 8- Full code .
[2016-03-24] MEDS: EPOETIN ALFA 20,000 UNIT/1 ML VIAL SQ SCH (15:10)
[2016-03-24] MEDS: SILVER SULFADIAZINE 1% TOP CREAM 50 GM JAR TP SCH (15:10)
--- NOTE | 2016-03-24 17:13 | PN ---
Physical Exam: SUBJECTIVE: Patient seen and examined Pt complained of feeling sad and lonely Pt denies fever, chills, n/v, chest pain, palpitation, shortness of breath Pt had dialysis today and 1.5 Kg was removed OBJECTIVE: Vital Signs Period Temp Pulse Resp BP Sys/[place] Pulse Ox Last 24 Hr 97.0 F-98.8 F 62-97 18-24 123-145/59-81 95-96 GENERAL: The patient is awake, alert, and fully oriented, in mild distress. HEAD: Normal with no signs of trauma. EYES: PERRL, extraocular movements intact, sclera anicteric, conjunctiva clear. No ptosis. ENT: Ears normal, nares patent, oropharynx clear without exudates, moist mucous membranes. NECK: Trachea midline, full range of motion, supple. LUNGS: tachypnea 24, b/l crackles, minimal exp wheezes HEART: Regular rate and rhythm, S1, S2 without murmur, rub or gallop. ABDOMEN: Soft, nontender, nondistended, normoactive bowel sounds, no guarding, no rebound, no hepatosplenomegaly, no masses. EXTREMITIES: 2+ pulses, warm, well-perfused. b/l lower ext edema 3+ with redness NEUROLOGICAL: Cranial nerves II through XII grossly intact. Normal speech, gait not observed. Strength 5/5 in all ext PSYCH: Normal mood, normal affect. SKIN: Warm, dry, normal turgor,edema 3+ and erythema in b/l lower ext from feet to knees Laboratory Results - last 24 hr 03/18/16 03/22/16 03/24/16 08:10 17:45 07:22 WBC 5.1 RBC 3.22 L Hgb 8.6 L Hct 27.4 L MCV 85.0 MCHC 31.2 L RDW 20.8 H Plt Count 67 L MPV 9.6 Sodium Potassium Chloride Carbon Dioxide Anion Gap BUN Creatinine Random Glucose Calcium Hepatitis A Ab Total Negative Hep Bs Antigen Negative Hep Bs Antibody Non reactive Hep B Core Total Ab Negative Hepatitis C Antibody 0.1 Blood Type A POSITIVE Antibody Screen Negative Crossmatch See Detail 03/24/16 07:22 WBC RBC Hgb Hct MCV MCHC RDW Plt Count MPV Sodium 146 H Potassium 4.1 Chloride 107 Carbon Dioxide 31 Anion Gap 8 BUN 75 H D Creatinine 2.1 H D Random Glucose 103 Calcium 7.5 L Hepatitis A Ab Total Hep Bs Antigen Hep Bs Antibody Hep B Core Total Ab Hepatitis C Antibody Blood Type Antibody Screen Crossmatch Active Medications Generic Name Dose Route Start Last Admin Trade Name Freq PRN Reason Stop Dose Admin Acetaminophen 650 mg 03/22/16 16:39 Tylenol - PO Q6H PRN FEVER OR PAIN Acetylcysteine 200 mg 03/22/16 22:00 03/24/16 10:45 Mucomyst 20 Oral / Inh Use Only* NEB 200 mg BID [facility] Administration Amlodipine Besylate 10 mg 03/23/16 10:00 03/24/16 09:09 Norvasc - PO 10 mg DAILY [facility] Administration Arformoterol Tartrate 1 amp 03/22/16 22:00 03/24/16 10:45 Brovana (Restricted To Pulmonology/Resp) - NEB 1 amp BID [facility] Administration Calcitriol 0.25 mcg 03/23/16 10:00 03/24/16 09:08 Rocaltrol - PO 0.25 mcg DAILY [facility] Administration Calcium Acetate 1,334 mg 03/22/16 17:30 03/24/16 12:47 Phoslo - PO 1,334 mg TIDCM [facility] Administration Docusate Sodium 100 mg 03/22/16 16:39 03/22/16 22:11 Colace - PO 100 mg BID PRN Administration CONSTIPATION Duloxetine HCl 20 mg 03/23/16 10:00 03/24/16 09:10 Cymbalta - PO 20 mg DAILY [facility] Administration Epoetin Keith 20,000 unit 03/24/16 10:00 03/24/16 15:10 Procrit - SQ 20,000 unit MoWeFr@1000 [facility] Administration Aztreonam 0.5 gm/ Dextrose 50 mls @ 100 mls/hr 03/22/16 18:00 03/24/16 12:47 IVPB 100 mls/hr Q8H-IV [facility] Administration Clindamycin Phosphate 300 mg/ 50 mls @ 104 mls/hr 03/22/16 18:00 03/24/16 09:10 Dextrose IVPB 104 mls/hr Q8H-IV [facility] Administration Lactobacillus Acidophilus 1 tab 03/23/16 10:00 03/24/16 09:09 Bacid - PO 1 tab DAILY [facility] Administration Morphine Sulfate 1 mg 03/22/16 16:39 03/24/16 09:27 Morphine Injection - IVPUSH 1 mg Q4H PRN Administration PAIN Pantoprazole Sodium 40 mg 03/23/16 10:00 03/24/16 09:09 Protonix - PO 40 mg DAILY [facility] Administration Polyethylene Glycol 17 gm 03/23/16 10:00 03/24/16 09:13 Miralax (For Daily Use) - PO 17 gm DAILY [facility] Administration Prednisone 5 mg 03/24/16 15:57 Deltasone - PO DAILY [facility] Pregabalin 50 mg 03/23/16 10:00 03/24/16 09:10 Lyrica - PO 50 mg DAILY [facility] Administration Silver Sulfadiazine 1 applic 03/23/16 10:00 03/24/16 15:10 Silvadene - TP 1 applic DAILY [facility] Administration Sodium Chloride 2 spray 03/22/16 16:39 [place] Nasal [place] - NS BID PRN NASAL CONGESTION Tiotropium [place] 1 puff 03/23/16 10:00 03/24/16 09:09 Spiriva - IH 1 puff DAILY [facility] Administration Torsemide 40 mg 03/23/16 10:00 03/24/16 09:09 Demadex - PO 40 mg DAILY [facility] Administration Zinc Oxide/Panthenol/Vitamin E 1 applic 03/22/16 16:39 Balmex Cream - TP ASDIR PRN HYGEINE ASSESSMENT/PLAN: 75 year old male with pmh of COPD, PVD, Chronic lower ext lymphadema, CAD with stent, CHF, CKD with baseline creatinine of 1.9, nephrolithiasis presented to the ED with complaint of shortness of breath and cellulitis, patient was fount to have acute hypercapneic respiratory failure and acute renal failure Acute hypercapneic respiratory failure rt to COPD exacerbation and diastolic heart failure and pleural effusion Continue steroid taper, dose reduce to 5 mg Po of prednisone daily Continue bronchodilators Continue diuresis with torsemide 40mg po daily Dialysis x3 for fluid overload, third treatment tomorrow s/p Thoracentesis 03/21/16 and 03/07/16 Bilateral lower ext cellulitis Continue Aztreonam 0.5gm q8h IV Continue clindamycin 300mg q8h IV Acute on Chronic kidney Injury Pt is receiving dialysis Continue to monitor BUN and Cr Monitor intake and output Continue Phoslo Continue Calcitriol Normocytic anemia likely due to chronic disease and renal disease Continue to monitor CBC daily PRN transfusion if Hbg less than 7 of if rapid drop and massive bleeding fecal occult blood positive, pt to follow up with GI once stable Thrombocytopenia Pt had normal platelet on admission, plt went as low as 42 Continue to trend plt level No platelet transfusion needed right now Pt has HIT antibody positive, serotonin release essay is still pending 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 Hypertension Currently controlled on Norvac Continue current dose of Norvasc Coronary artery disease s/p stenting on 03/2015 Will continue to hold Asprin and Effient until Plt level normalizes FEN Fluid: none Electrolytes: continue to monitor Nutrition: Diabetic low sodium diet Dvt prophylaxis: no heparin due to low plt and positive HIT, unable to use SCD due to b/l lower ext cellulitis. Disposition: keep in [facility] Visit type - Emergency Visit Emergency Visit: Yes ED Registration Date: 02/18/16 Care time: The patient presented to the Emergency Department on the above date and was hospitalized for further evaluation of their emergent condition. - New Patient This patient is new to me today: Yes Date on this admission: 03/24/16 - Critical Care Critical Care patient: No - Discharge Referral Referred to [facility] Med P.C.: No
--- NOTE | 2016-03-24 17:50 | PN ---
Progress Note (short form) - Note Progress Note: Patient seen and examined Still with active cellulitis of LE's. MICHAEL still not available ( borderline HIT ab) Platelets slowly increased to 67K. Think it is not unreasonable to resume low dose ASA ( if there is no GI contra- indication) when platelets greater than 70 K.
[2016-03-25] MEDS ORDERED: PT OWN MED DRAWER 7, Y5N ONE ×5 (01:27→17:50)
[2016-03-25] MEDS: CLINDAMYCIN IVPB 300 MG in DEXTROSE 5%-WATER - 48 ML IVPB SCH ×3 (01:45→17:52)
[2016-03-25] MEDS: AZTREONAM 0.5 GM in DEXTROSE 5%-WATER - 50 ML IVPB SCH ×3 (02:52→19:00)
[2016-03-25] MEDS: CALCIUM ACETATE 667 MG CAPSULE (FP) PO SCH ×3 (08:47→17:52)
[2016-03-25 09:06] LABS: MCH 26.2 pg (25.7-33.7); MCHC 30.7 g/dl (32.0-35.9); MEAN CELL VOLUME 85.5 fl (80-96); MEAN PLT VOLUME 11.1 fl (7.5-11.1); PLATELET COUNT 72 K/MM3 (134-434); RDW 20.7 % (11.9-15.9); WHITE BLOOD COUNT 4.6 K/mm3 (4.0-10.0)
[2016-03-25 09:08] LABS: BASOPHIL 0.9 % (0-2.0); EOSINOPHIL 4.7 % (0-4.5); MCH 26.6 pg (25.7-33.7); MEAN CELL VOLUME 85.6 fl (80-96); MEAN PLT VOLUME 9.6 fl (7.5-11.1); NEUTROPHILS 70.7 % (42.8-82.8); PLATELET COUNT 66 K/MM3 (134-434); RDW 20.9 % (11.9-15.9); WHITE BLOOD COUNT 4.6 K/mm3 (4.0-10.0)
[2016-03-25] MEDS: ARFORMOTEROL TARTRATE 15 MCG/2 ML VIAL NEB SCH ×2 (09:08→22:58)
[2016-03-25] MEDS: ACETYLCYSTEINE 20% 200MG/ML 4 ML VIAL *FOR ORAL / INH USE ONLY NEB SCH ×2 (09:09→22:59)
[2016-03-25 09:31] LABS: CALCIUM 7.4 mg/dL (8.5-10.1)
[2016-03-25 09:34] LABS: CREATININE 2.3 mg/dL (0.7-1.3); PHOSPHOROUS 2.7 mg/dL (2.5-4.9)
--- NOTE | 2016-03-25 10:57 | PN ---
Progress Note (short form) - Note Progress Note: Renal Follow up for KARLOS Pt seen and examined at dialysis BP is stable Tolerated 3L UF complains of feeling cold Vital Signs Temperature 98.2 F 03/25/16 07:35 Pulse Rate 90 03/25/16 09:10 Respiratory Rate 18 03/25/16 09:10 Blood Pressure 112/61 03/25/16 09:10 O2 Sat by Pulse Oximetry (%) 96 03/25/16 09:07 Intake & Output 03/22/16 03/23/16 03/24/16 03/25/16 23:59 23:59 23:59 23:59 Intake Total 150 400 962 Output Total 3510 1200 900 500 Balance -3360 -800 62 -500 Gen: NAD CVS: RRR No M/R Lungs: dec BS throughout the lung rey Abd: Soft NT + Mild distension Ext: > 3+ edema, no cyanosis or clubbing CBC, BMP 03/25/16 07:40 03/25/16 07:40 Current Medications Acetaminophen (Tylenol -) 650 mg PO Q6H PRN PRN Reason: FEVER OR PAIN Acetylcysteine (Mucomyst 20 Oral / Inh Use Only*) 200 mg NEB BID [facility] Last Admin: 03/25/16 09:09 Dose: 200 mg Amlodipine Besylate (Norvasc -) 10 mg PO DAILY [facility] Last Admin: 03/24/16 09:09 Dose: 10 mg Arformoterol Tartrate (Brovana (Restricted To Pulmonology/Resp) -) 1 amp NEB BID [facility] Last Admin: 03/25/16 09:08 Dose: 1 amp Calcitriol (Rocaltrol -) 0.25 mcg PO DAILY [facility] Last Admin: 03/24/16 09:08 Dose: 0.25 mcg Calcium Acetate (Phoslo -) 1,334 mg PO TIDCM [facility] Last Admin: 03/25/16 08:47 Dose: Not Given Docusate Sodium (Colace -) 100 mg PO BID PRN PRN Reason: CONSTIPATION Last Admin: 03/22/16 22:11 Dose: 100 mg Duloxetine HCl (Cymbalta -) 20 mg PO DAILY [facility] Last Admin: 03/24/16 09:10 Dose: 20 mg Epoetin Keith (Procrit -) 20,000 unit SQ MoWeFr@1000 [facility] Last Admin: 03/24/16 15:10 Dose: 20,000 unit Aztreonam 0.5 gm/ Dextrose 50 mls @ 100 mls/hr IVPB Q8H-IV [facility] Last Admin: 03/25/16 02:52 Dose: 100 mls/hr Clindamycin Phosphate 300 mg/ (Dextrose) 50 mls @ 104 mls/hr IVPB Q8H-IV [facility] Last Admin: 03/25/16 01:45 Dose: 104 mls/hr Lactobacillus Acidophilus (Bacid -) 1 tab PO DAILY [facility] Last Admin: 03/24/16 09:09 Dose: 1 tab Morphine Sulfate (Morphine Injection -) 1 mg IVPUSH Q4H PRN PRN Reason: PAIN Last Admin: 03/24/16 09:27 Dose: 1 mg Pantoprazole Sodium (Protonix -) 40 mg PO DAILY [facility] Last Admin: 03/24/16 09:09 Dose: 40 mg Polyethylene Glycol (Miralax (For Daily Use) -) 17 gm PO DAILY [facility] Last Admin: 03/24/16 09:13 Dose: 17 gm Potassium Chloride (K-[place] -) 40 meq PO ONCE ONE Stop: 03/25/16 10:10 Prednisone (Deltasone -) 5 mg PO DAILY [facility] Pregabalin (Lyrica -) 50 mg PO DAILY [facility] Last Admin: 03/24/16 09:10 Dose: 50 mg Silver Sulfadiazine (Silvadene -) 1 applic TP DAILY [facility] Last Admin: 03/24/16 15:10 Dose: 1 applic Sodium Chloride ([place] Nasal [place] -) 2 spray NS BID PRN PRN Reason: NASAL CONGESTION Tiotropium [place] (Spiriva -) 1 puff IH DAILY [facility] Last Admin: 03/24/16 09:09 Dose: 1 puff Torsemide (Demadex -) 40 mg PO DAILY [facility] Last Admin: 03/24/16 09:09 Dose: 40 mg Zinc Oxide/Panthenol/Vitamin E (Balmex Cream -) 1 applic TP ASDIR PRN PRN Reason: HYGEINE A/P 75 year old Gentleman with PMhx of CKD Stage 3 (baseline Cr 1.9), Hx of Nephrolithiasis, Hypertension, COPD, CHF, PVD, Chronic LE lymph edema who was sent into the ED from wound care for increased lethargy and decreased urination for several days with KARLOS with BUN/Cr of 115/7.2 and K of 6.5 #Acute Renal Failure with incomplete recovery now with fluid overload requiring dialysis again Tolerating dialysis well UF 3L today Will plan for next dialysis on Sunday K was noted to be 3.3 during HD. Was using a low K bath. Give Kcl 40meq PO x 1. Repeat BMP this evening. Hold Torsemide. #Pleural effusions/Resp Failure on BIPAP UF with HD, Diuretics (hodl today) s/p thoracentesis #Anemia Hgb is 7.9 today Repeat CBC in the AM transfuse if Hgb remains less then 8 #LE edema/Cellulitis Abx as per ID Wound care Compression #Hypernatremia Free water intake as tolerated hold diuretics for now Melvin Johnson DO
--- NOTE | 2016-03-25 11:24 | PN ---
Progress Note (short form) - Note Progress Note: Subjective: no fever or chills, cont to feel SOB . did not sleep well last night Objective: Vital Signs: Last Vital Signs Temp Pulse Resp BP Pulse Ox 98.2 F 90 18 156/71 96 03/25/16 07:35 03/25/16 10:55 03/25/16 10:55 03/25/16 10:55 03/25/16 09:07 Laboratory Results - last 24 hr 03/25/16 03/25/16 03/25/16 06:40 07:40 07:40 WBC 4.6 4.6 RBC 3.12 L 3.02 L Hgb 8.3 L 7.9 L Hct 26.7 L 25.8 L MCV 85.6 85.5 MCHC 31.0 L 30.7 L RDW 20.9 H 20.7 H Plt Count 66 L 72 L MPV 9.6 11.1 D Neutrophils % 70.7 D Lymphocytes % 15.5 D Monocytes % 8.2 D Eosinophils % 4.7 H D Basophils % 0.9 Sodium 150 H Potassium 3.3 L Chloride 108 H Carbon Dioxide 33 H Anion Gap 9 BUN 68 H Creatinine 2.3 H Random Glucose 100 Calcium 7.4 L Phosphorus 2.7 D Physical Exam: NAD Cv : RRR Lungs : decreased breath sounds at bases ,no wheezes heard anteriorly ext : 3 + pitting edema , erythema and thick skin with no discharge ASSESSMENT AND PLAN: 75 year-old man with a PMHx of HTN, PVD, COPD, CKD (baseline Cr 1.8), nephrolithiasis, D CHF , CAD s/p stenting in 03/23 and chronic LE lymphedema. presented with SOB and was found to have acute hypercapnic resp failure with acute renal failure . 1- Acute hypercapnic resp failure due to COPD exa , diastolic heart failure and pleural effusions cont steoids taper. day 1/3 of 5 mg hold diuresis due to worsening hypernatremia . HD today for volume management s/p R thoracocentesis 03/21. Exudative fluid , but cx Neg and cytology neg for malignancy 2- Cellultis of LE : cont aztreonama and clinda 3- KARLOS on CKD: on cacitriol and phoslo HD 4- Normocytic anemia. s/p transfusion. repeat in am not candidate for colonoscopy at this time 5- Thrombocytopenia : nl plt at admission . 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 serotonine release assay pending . 6- HTN: better . cont norvasc 7- CAD : Stenting 03/23 . will resume ASA if PLT count cont to increase > 70 Visit type - Emergency Visit Emergency Visit: Yes ED Registration Date: 02/18/16 Care time: The patient presented to the Emergency Department on the above date and was hospitalized for further evaluation of their emergent condition. - New Patient This patient is new to me today: No - Critical Care Critical Care patient: No
[2016-03-25] MEDS ORDERED: POTASSIUM CHLORIDE TABS 20 MEQ TABLET.ER (FP) PO ONE (11:45)
[2016-03-25] MEDS: DULoxetine HCL 20 MG CAPSULE.DR (FP) PO SCH (11:48)
[2016-03-25] MEDS: predniSONE 5 MG TABLET (UD) PO SCH (11:48)
[2016-03-25] MEDS: LACTOBACILLUS ACIDOPHILUS 1 EACH TAB (FP) PO SCH (11:48)
[2016-03-25] MEDS: SILVER SULFADIAZINE 1% TOP CREAM 50 GM JAR TP SCH (11:49)
[2016-03-25] MEDS: CALCITRIOL 0.25 MCG CAPSULE (FP) PO SCH (11:49)
[2016-03-25] MEDS: PREGABALIN 50 MG CAPSULE PO SCH (11:49)
[2016-03-25] MEDS: POLYETHYLENE GLYCOL 3350 119 GM BTL PO SCH (11:49)
[2016-03-25] MEDS: amLODIPine BESYLATE 10 MG TABLET (FP) PO SCH (11:49)
[2016-03-25] MEDS: PANTOPRAZOLE 40 MG TABLET (FP) PO SCH (11:49)
[2016-03-25] MEDS: TIOTROPIUM BROMIDE 18 MCG/INH (DEVICE W/ 5 CAPSULES) IH SCH (11:50)
[2016-03-25 12:00] LABS: ANISOCYTOSIS 2+; HYPOCHROMIA 2+; PLATELET COMMENT2 NO CLOTTING DETECTED; PLATELET ESTIMATE DECREASED (NORMAL); POIKILOCYTOSIS 2+; POLYCHROMASIA 1+
--- NOTE | 2016-03-25 12:28 | PN ---
Progress Note, Physician - Current Medication List Current Medications: Active Medications Acetaminophen (Tylenol -) 650 mg PO Q6H PRN PRN Reason: FEVER OR PAIN Acetylcysteine (Mucomyst 20 Oral / Inh Use Only*) 200 mg NEB BID [facility] Last Admin: 03/25/16 09:09 Dose: 200 mg Amlodipine Besylate (Norvasc -) 10 mg PO DAILY [facility] Last Admin: 03/25/16 11:49 Dose: 10 mg Arformoterol Tartrate (Brovana (Restricted To Pulmonology/Resp) -) 1 amp NEB BID [facility] Last Admin: 03/25/16 09:08 Dose: 1 amp Calcitriol (Rocaltrol -) 0.25 mcg PO DAILY [facility] Last Admin: 03/25/16 11:49 Dose: 0.25 mcg Calcium Acetate (Phoslo -) 1,334 mg PO TIDCM [facility] Last Admin: 03/25/16 11:50 Dose: 1,334 mg Docusate Sodium (Colace -) 100 mg PO BID PRN PRN Reason: CONSTIPATION Last Admin: 03/22/16 22:11 Dose: 100 mg Duloxetine HCl (Cymbalta -) 20 mg PO DAILY [facility] Last Admin: 03/25/16 11:48 Dose: 20 mg Epoetin Keith (Procrit -) 20,000 unit SQ MoWeFr@1000 [facility] Last Admin: 03/24/16 15:10 Dose: 20,000 unit Aztreonam 0.5 gm/ Dextrose 50 mls @ 100 mls/hr IVPB Q8H-IV [facility] Last Admin: 03/25/16 11:47 Dose: 100 mls/hr Clindamycin Phosphate 300 mg/ (Dextrose) 50 mls @ 104 mls/hr IVPB Q8H-IV [facility] Last Admin: 03/25/16 12:19 Dose: 104 mls/hr Lactobacillus Acidophilus (Bacid -) 1 tab PO DAILY [facility] Last Admin: 03/25/16 11:48 Dose: 1 tab Morphine Sulfate (Morphine Injection -) 1 mg IVPUSH Q4H PRN PRN Reason: PAIN Last Admin: 03/24/16 09:27 Dose: 1 mg Pantoprazole Sodium (Protonix -) 40 mg PO DAILY [facility] Last Admin: 03/25/16 11:49 Dose: 40 mg Polyethylene Glycol (Miralax (For Daily Use) -) 17 gm PO DAILY [facility] Last Admin: 03/25/16 11:49 Dose: 17 gm Prednisone (Deltasone -) 5 mg PO DAILY [facility] Last Admin: 03/25/16 11:48 Dose: 5 mg Pregabalin (Lyrica -) 50 mg PO DAILY [facility] Last Admin: 03/25/16 11:49 Dose: 50 mg Silver Sulfadiazine (Silvadene -) 1 applic TP DAILY [facility] Last Admin: 03/25/16 11:49 Dose: 1 applic Sodium Chloride ([place] Nasal [place] -) 2 spray NS BID PRN PRN Reason: NASAL CONGESTION Tiotropium [place] (Spiriva -) 1 puff IH DAILY [facility] Last Admin: 03/25/16 11:50 Dose: 1 puff Zinc Oxide/Panthenol/Vitamin E (Balmex Cream -) 1 applic TP ASDIR PRN PRN Reason: HYGEINE - Objective Vital Signs: Vital Signs Temperature 98.8 F 03/25/16 11:45 Pulse Rate 94 H 03/25/16 11:45 Respiratory Rate 24 03/25/16 11:45 Blood Pressure 138/58 03/25/16 11:45 O2 Sat by Pulse Oximetry (%) 96 03/25/16 09:07 Eyes: Yes: WNL, Conjunctiva Clear, EOM Intact HENT: Yes: WNL, Atraumatic, Normocephalic Neck: Yes: WNL, Supple, Trachea Midline Cardiovascular: Yes: WNL, Regular Rate and Rhythm Respiratory: Yes: WNL, Regular, CTA Bilaterally Gastrointestinal: Yes: WNL, Normal Bowel Sounds Genitourinary: Yes: WNL Musculoskeletal: Yes: WNL Extremities: Yes: WNL Edema: Yes Edema: LLE: 2+, RLE: 2+ Integumentary: Yes: WNL Neurological: Yes: WNL, Alert, Oriented ...Motor Strength: WNL Psychiatric: Yes: WNL Labs: CBC, BMP 03/25/16 07:40 03/25/16 07:40 INR, PTT INR 1.16 (0.82-1.09) H 03/20/16 09:20 Fibrinogen 547.0 mg/dL (238-498) H 03/17/16 06:30 Assessment/Plan Worsening thrombocytopenia of unclear etiology Acute on chronic renal failure CAD Chronic diastolic CHF RSV lung infection REC: Antiplatelet Rx has been on hold for thoracentesis and thrombocytopenia: now with platelets count inching up. Check CBC in AM: if again close to 70K, then comfortable that counts are stable and hopefully recovering. Can then resume ASA 81mg daily. Discussed w/ Hematology.
[2016-03-25] MEDS: morphine CARPU-JECT 2 MG/1 ML DISP.SYRIN IVPUSH PRN (13:52)
--- NOTE | 2016-03-25 15:10 | CONSULT ---
Psychiatry Consult Chief Complaint: I cant breathe, I am anxious. Symptoms: reports: Irritability, Anxiety - Previous Psychiatric Treatment Outpatient: None Inpatient: None - Previous Substance Abuse Treatment Outpatient: None Inpatient: None - Family History Family History: Unremarkable - Current Medications Current Medications: Active Medications Acetaminophen (Tylenol -) 650 mg PO Q6H PRN PRN Reason: FEVER OR PAIN Acetylcysteine (Mucomyst 20 Oral / Inh Use Only*) 200 mg NEB BID [facility] Last Admin: 03/25/16 09:09 Dose: 200 mg Amlodipine Besylate (Norvasc -) 10 mg PO DAILY [facility] Last Admin: 03/25/16 11:49 Dose: 10 mg Arformoterol Tartrate (Brovana (Restricted To Pulmonology/Resp) -) 1 amp NEB BID [facility] Last Admin: 03/25/16 09:08 Dose: 1 amp Calcitriol (Rocaltrol -) 0.25 mcg PO DAILY [facility] Last Admin: 03/25/16 11:49 Dose: 0.25 mcg Calcium Acetate (Phoslo -) 1,334 mg PO TIDCM [facility] Last Admin: 03/25/16 11:50 Dose: 1,334 mg Docusate Sodium (Colace -) 100 mg PO BID PRN PRN Reason: CONSTIPATION Last Admin: 03/22/16 22:11 Dose: 100 mg Epoetin Keith (Procrit -) 20,000 unit SQ MoWeFr@1000 [facility] Last Admin: 03/24/16 15:10 Dose: 20,000 unit Aztreonam 0.5 gm/ Dextrose 50 mls @ 100 mls/hr IVPB Q8H-IV [facility] Last Admin: 03/25/16 11:47 Dose: 100 mls/hr Clindamycin Phosphate 300 mg/ (Dextrose) 50 mls @ 104 mls/hr IVPB Q8H-IV [facility] Last Admin: 03/25/16 12:19 Dose: 104 mls/hr Lactobacillus Acidophilus (Bacid -) 1 tab PO DAILY [facility] Last Admin: 03/25/16 11:48 Dose: 1 tab Morphine Sulfate (Morphine Injection -) 1 mg IVPUSH Q4H PRN PRN Reason: PAIN Last Admin: 03/25/16 13:52 Dose: 1 mg Pantoprazole Sodium (Protonix -) 40 mg PO DAILY [facility] Last Admin: 12/17/16 11:49 Dose: 40 mg Polyethylene Glycol (Miralax (For Daily Use) -) 17 gm PO DAILY [facility] Last Admin: 03/25/16 11:49 Dose: 17 gm Prednisone (Deltasone -) 5 mg PO DAILY [facility] Last Admin: 03/25/16 11:48 Dose: 5 mg Pregabalin (Lyrica -) 50 mg PO DAILY [facility] Last Admin: 03/25/16 11:49 Dose: 50 mg Silver Sulfadiazine (Silvadene -) 1 applic TP DAILY [facility] Last Admin: 03/25/16 11:49 Dose: 1 applic Sodium Chloride ([place] Nasal [place] -) 2 spray NS BID PRN PRN Reason: NASAL CONGESTION Tiotropium [place] (Spiriva -) 1 puff IH DAILY [facility] Last Admin: 03/25/16 11:50 Dose: 1 puff Zinc Oxide/Panthenol/Vitamin E (Balmex Cream -) 1 applic TP ASDIR PRN PRN Reason: HYGEINE - Allergies Allergies: Allergies Allergy/AdvReac Type Severity Reaction Status Date / Time Penicillins Allergy Verified 02/18/16 11:45 - Current Living Status Usual Living Arrangement: With Spouse - Current Mental Status Evaluation Appearance: Disheveled Attitude: Uncooperative - Affect Affect: Constrictive Appropriateness: Appropriate to Content - Mood Mood: Anxious, Irritable - Speech/Language Expressive: Coherent - Psychomotor Activity Psychomotor Activity: Hyperactive - Thought Process Thought Process: Intact - Thought Content Hallucinations: Absent Delusions: Absent - Self Perception Self Perception: No Impairment - Cognition Attention: Alert Orientation: Time Memory, Immediate Recall: Intact Memory, Remote: Intact - Concentration Serial Sevens Intact: No Simple Calculations Intact: No - Abstraction Proverb Interpretation: Intact Judgement: Minimally Impaired - Insight Insight: Intact - Impulse Control Impulse Control: Minimally Impaired - Suicidal Ideation Suicidal Ideation: No - Homicidal Ideation Homicidal Ideation: No Assessment/Plan increase Dulaxtine 40mg pom od for anxiety and depression.
[2016-03-25] MEDS ORDERED: ALBUTEROL SO4 2.5/IPRATROPIUM 0.5 INH SOL 3 ML VIAL.NEB. NEB PRN (16:54)
[2016-03-25] MEDS ORDERED: ALBUTEROL SO4 0.042% IH SOL 1.25 MG/3 ML VIAL.NEB NEB PRN (17:02)
[2016-03-25] MEDS ORDERED: ALBUTEROL SO4 0.042% IH SOL 1.25 MG/3 ML VIAL.NEB NEB ONE (17:02)
[2016-03-26] MEDS: AZTREONAM 0.5 GM in DEXTROSE 5%-WATER - 50 ML IVPB SCH ×4 (02:40→18:16)
[2016-03-26] MEDS: CLINDAMYCIN IVPB 300 MG in DEXTROSE 5%-WATER - 48 ML IVPB SCH ×3 (03:15→17:07)
[2016-03-26 07:36] LABS: BASOPHIL 0.7 % (0-2.0); EOSINOPHIL 4.2 % (0-4.5); MCH 26.2 pg (25.7-33.7); MCHC 30.1 g/dl (32.0-35.9); MEAN CELL VOLUME 86.9 fl (80-96); MEAN PLT VOLUME 9.7 fl (7.5-11.1); NEUTROPHILS 71.5 % (42.8-82.8); PLATELET COUNT 70 K/MM3 (134-434); RDW 21.1 % (11.9-15.9); WHITE BLOOD COUNT 4.5 K/mm3 (4.0-10.0)
[2016-03-26 08:06] LABS: CALCIUM 7.7 mg/dL (8.5-10.1)
[2016-03-26 08:08] LABS: CREATININE 1.9 mg/dL (0.7-1.3)
[2016-03-26] MEDS: CALCIUM ACETATE 667 MG CAPSULE (FP) PO SCH ×4 (08:55→17:07)
[2016-03-26] MEDS: ARFORMOTEROL TARTRATE 15 MCG/2 ML VIAL NEB SCH ×2 (09:45→22:12)
--- NOTE | 2016-03-26 09:45 | PN ---
Progress Note, Physician - Current Medication List Current Medications: Active Medications Acetaminophen (Tylenol -) 650 mg PO Q6H PRN PRN Reason: FEVER OR PAIN Acetylcysteine (Mucomyst 20 Oral / Inh Use Only*) 200 mg NEB BID [facility] Last Admin: 03/25/16 22:59 Dose: 200 mg Albuterol Sulfate (Ventolin 0.042trength) -) 1 amp NEB Q6H PRN PRN Reason: SHORT OF BREATH/WHEEZING Amlodipine Besylate (Norvasc -) 10 mg PO DAILY [facility] Last Admin: 03/25/16 11:49 Dose: 10 mg Arformoterol Tartrate (Brovana (Restricted To Pulmonology/Resp) -) 1 amp NEB BID [facility] Last Admin: 03/25/16 22:58 Dose: 1 amp Calcitriol (Rocaltrol -) 0.25 mcg PO DAILY [facility] Last Admin: 03/25/16 11:49 Dose: 0.25 mcg Calcium Acetate (Phoslo -) 1,334 mg PO TIDCM [facility] Last Admin: 03/25/16 17:52 Dose: 1,334 mg Docusate Sodium (Colace -) 100 mg PO BID PRN PRN Reason: CONSTIPATION Last Admin: 03/22/16 22:11 Dose: 100 mg Duloxetine HCl (Cymbalta -) 40 mg PO DAILY [facility] Epoetin Keith (Procrit -) 20,000 unit SQ MoWeFr@1000 [facility] Last Admin: 03/24/16 15:10 Dose: 20,000 unit Aztreonam 0.5 gm/ Dextrose 50 mls @ 100 mls/hr IVPB Q8H-IV [facility] Last Admin: 03/26/16 02:40 Dose: 100 mls/hr Clindamycin Phosphate 300 mg/ (Dextrose) 50 mls @ 104 mls/hr IVPB Q8H-IV [facility] Last Admin: 03/26/16 03:15 Dose: 104 mls/hr Lactobacillus Acidophilus (Bacid -) 1 tab PO DAILY [facility] Last Admin: 03/25/16 11:48 Dose: 1 tab Pantoprazole Sodium (Protonix -) 40 mg PO DAILY [facility] Last Admin: 03/25/16 11:49 Dose: 40 mg Polyethylene Glycol (Miralax (For Daily Use) -) 17 gm PO DAILY [facility] Last Admin: 12/17/16 11:49 Dose: 17 gm Prednisone (Deltasone -) 5 mg PO DAILY [facility] Last Admin: 03/25/16 11:48 Dose: 5 mg Pregabalin (Lyrica -) 50 mg PO DAILY [facility] Last Admin: 03/25/16 11:49 Dose: 50 mg Silver Sulfadiazine (Silvadene -) 1 applic TP DAILY [facility] Last Admin: 03/25/16 11:49 Dose: 1 applic Sodium Chloride ([place] Nasal [place] -) 2 spray NS BID PRN PRN Reason: NASAL CONGESTION Tiotropium [place] (Spiriva -) 1 puff IH DAILY [facility] Last Admin: 03/25/16 11:50 Dose: 1 puff Zinc Oxide/Panthenol/Vitamin E (Balmex Cream -) 1 applic TP ASDIR PRN PRN Reason: HYGEINE - Objective Vital Signs: Vital Signs Temperature 99.4 F 03/26/16 06:00 Pulse Rate 91 H 03/26/16 06:00 Respiratory Rate 20 03/26/16 06:00 Blood Pressure 140/56 03/26/16 06:00 O2 Sat by Pulse Oximetry (%) 94 L 03/25/16 21:00 Eyes: Yes: WNL, Conjunctiva Clear, EOM Intact HENT: Yes: WNL, Atraumatic, Normocephalic Neck: Yes: WNL, Supple, Trachea Midline Cardiovascular: Yes: WNL, Regular Rate and Rhythm Respiratory: Yes: WNL, Regular, CTA Bilaterally Gastrointestinal: Yes: WNL, Normal Bowel Sounds Genitourinary: Yes: WNL Musculoskeletal: Yes: WNL Extremities: Yes: WNL Edema: Yes Integumentary: Yes: WNL Neurological: Yes: WNL, Alert, Oriented ...Motor Strength: WNL Psychiatric: Yes: WNL Labs: CBC, BMP 03/26/16 06:00 03/26/16 06:00 INR, PTT INR 1.16 (0.82-1.09) H 03/20/16 09:20 Fibrinogen 547.0 mg/dL (238-498) H 03/17/16 06:30 Assessment/Plan Worsening thrombocytopenia of unclear etiology Acute on chronic renal failure CAD Chronic diastolic CHF RSV lung infection REC: Antiplatelet Rx has been on hold for thoracentesis and thrombocytopenia: now with platelets count inching up. Check CBC in AM: if again close to 70K, then comfortable that counts are stable and hopefully recovering. Can then resume ASA 81mg daily. Discussed w/ Hematology.
[2016-03-26] MEDS: ACETYLCYSTEINE 20% 200MG/ML 4 ML VIAL *FOR ORAL / INH USE ONLY NEB SCH ×2 (09:46→22:12)
[2016-03-26] MEDS ORDERED: PT OWN MED DRAWER 7, Y5N ONE ×3 (10:49→18:03)
[2016-03-26] MEDS: TIOTROPIUM BROMIDE 18 MCG/INH (DEVICE W/ 5 CAPSULES) IH SCH (10:54)
[2016-03-26] MEDS: LACTOBACILLUS ACIDOPHILUS 1 EACH TAB (FP) PO SCH (10:55)
[2016-03-26] MEDS: PANTOPRAZOLE 40 MG TABLET (FP) PO SCH (10:55)
[2016-03-26] MEDS: PREGABALIN 50 MG CAPSULE PO SCH (10:55)
[2016-03-26] MEDS: DULoxetine HCL 20 MG CAPSULE.DR (FP) PO SCH (10:55)
[2016-03-26] MEDS: CALCITRIOL 0.25 MCG CAPSULE (FP) PO SCH (10:56)
[2016-03-26] MEDS: SILVER SULFADIAZINE 1% TOP CREAM 50 GM JAR TP SCH (10:56)
[2016-03-26] MEDS: predniSONE 5 MG TABLET (UD) PO SCH (10:56)
[2016-03-26] MEDS: POLYETHYLENE GLYCOL 3350 119 GM BTL PO SCH (10:56)
[2016-03-26] MEDS: amLODIPine BESYLATE 10 MG TABLET (FP) PO SCH (10:56)
--- NOTE | 2016-03-26 13:14 | PN ---
Progress Note, Physician History of Present Illness: patient stable still breathing not good according to him patient currently on bipap looks like he has lost weight swelling of the leg better still warmth present resolving slowly - Current Medication List Current Medications: Active Medications Acetaminophen (Tylenol -) 650 mg PO Q6H PRN PRN Reason: FEVER OR PAIN Acetylcysteine (Mucomyst 20 Oral / Inh Use Only*) 200 mg NEB BID [facility] Last Admin: 03/26/16 09:46 Dose: 200 mg Albuterol Sulfate (Ventolin 0.042trength) -) 1 amp NEB Q6H PRN PRN Reason: SHORT OF BREATH/WHEEZING Amlodipine Besylate (Norvasc -) 10 mg PO DAILY [facility] Last Admin: 03/26/16 10:56 Dose: 10 mg Arformoterol Tartrate (Brovana (Restricted To Pulmonology/Resp) -) 1 amp NEB BID [facility] Last Admin: 03/26/16 09:45 Dose: 1 amp Calcitriol (Rocaltrol -) 0.25 mcg PO DAILY [facility] Last Admin: 03/26/16 10:56 Dose: 0.25 mcg Calcium Acetate (Phoslo -) 1,334 mg PO TIDCM [facility] Last Admin: 03/26/16 12:12 Dose: 1,334 mg Docusate Sodium (Colace -) 100 mg PO BID PRN PRN Reason: CONSTIPATION Last Admin: 03/22/16 22:11 Dose: 100 mg Duloxetine HCl (Cymbalta -) 40 mg PO DAILY [facility] Last Admin: 03/26/16 10:55 Dose: 40 mg Epoetin Keith (Procrit -) 20,000 unit SQ MoWeFr@1000 [facility] Last Admin: 03/24/16 15:10 Dose: 20,000 unit Aztreonam 0.5 gm/ Dextrose 50 mls @ 100 mls/hr IVPB Q8H-IV [facility] Last Admin: 03/26/16 11:12 Dose: 100 mls/hr Clindamycin Phosphate 300 mg/ (Dextrose) 50 mls @ 104 mls/hr IVPB Q8H-IV [facility] Last Admin: 03/26/16 10:54 Dose: 104 mls/hr Lactobacillus Acidophilus (Bacid -) 1 tab PO DAILY [facility] Last Admin: 03/26/16 10:55 Dose: 1 tab Pantoprazole Sodium (Protonix -) 40 mg PO DAILY [facility] Last Admin: 03/26/16 10:55 Dose: 40 mg Polyethylene Glycol (Miralax (For Daily Use) -) 17 gm PO DAILY [facility] Last Admin: 03/26/16 10:56 Dose: 17 gm Prednisone (Deltasone -) 5 mg PO DAILY [facility] Last Admin: 03/26/16 10:56 Dose: 5 mg Pregabalin (Lyrica -) 50 mg PO DAILY [facility] Last Admin: 03/26/16 10:55 Dose: 50 mg Silver Sulfadiazine (Silvadene -) 1 applic TP DAILY [facility] Last Admin: 03/26/16 10:56 Dose: 1 applic Sodium Chloride ([place] Nasal [place] -) 2 spray NS BID PRN PRN Reason: NASAL CONGESTION Tiotropium [place] (Spiriva -) 1 puff IH DAILY [facility] Last Admin: 03/26/16 10:54 Dose: 1 puff Zinc Oxide/Panthenol/Vitamin E (Balmex Cream -) 1 applic TP ASDIR PRN PRN Reason: HYGEINE - Objective Vital Signs: Vital Signs Temperature 99.4 F 03/26/16 06:00 Pulse Rate 95 H 03/26/16 09:44 Respiratory Rate 20 03/26/16 06:00 Blood Pressure 140/56 03/26/16 06:00 O2 Sat by Pulse Oximetry (%) 96 03/26/16 09:44 Constitutional: Yes: Calm, Mild Distress Cardiovascular: Yes: Regular Rate and Rhythm Respiratory: Yes: On BiPap, Poor Air Entry Gastrointestinal: Yes: Normal Bowel Sounds, Soft Extremities: Yes: Other Integumentary: Yes: Erythema (still pesent bilateral ext but improving) Neurological: Yes: Alert, Oriented Psychiatric: Yes: Alert, Oriented Labs: CBC, BMP 03/26/16 06:00 03/26/16 06:00 INR, PTT INR 1.16 (0.82-1.09) H 03/20/16 09:20 Fibrinogen 547.0 mg/dL (238-498) H 03/17/16 06:30 Assessment/Plan 75 year-old man with a PMH of HTN, PVD, COPD, CKD (baseline Cr 1.9), nephrolithiasis, and chronic LE lymphedema. Admitted in acute renal failure. Acute on chronic renal failure Hyperkalemia Sepsis s Hypertension Peripheral vascular disease Hypercarbic respiratory failure COPD bilateral cellulitis of the legs rsv lung infection pleural effusion anemia plan cellulitis improving continue abx weakness no events physio if possible
--- NOTE | 2016-03-26 13:55 | PN ---
Progress Note (short form) - Note Progress Note: Subjective: no fever or chills, cont to feel SOB . Objective: Vital Signs: Last Vital Signs Temp Pulse Resp BP Pulse Ox 99.1 F 95 H 22 118/61 96 03/26/16 09:00 03/26/16 09:44 03/26/16 09:00 03/26/16 09:00 03/26/16 09:44 Laboratory Results - last 24 hr 03/25/16 03/26/16 03/26/16 06:00 06:00 06:00 WBC 4.5 RBC 3.12 L Hgb 8.2 L Hct 27.1 L MCV 86.9 MCHC 30.1 L RDW 21.1 H Plt Count 70 L MPV 9.7 D Neutrophils % 71.5 Lymphocytes % 13.6 Monocytes % 10.0 Eosinophils % 4.2 Basophils % 0.7 Sodium 149 H Potassium 3.9 3.8 Chloride 107 Carbon Dioxide 34 H Anion Gap 8 BUN 42 H D Creatinine 1.9 H Random Glucose 98 Calcium 7.7 L Physical Exam: NAD Cv : RRR Lungs: decreased breath sounds at bases ,no wheezes heard anteriorly ext : 3 + pitting edema , erythema and thick skin with no discharge ASSESSMENT AND PLAN: 75 year-old man with a PMHx of HTN, PVD, COPD, CKD (baseline Cr 1.8), nephrolithiasis, D CHF , CAD s/p stenting in 03/23 and chronic LE lymphedema. presented with SOB and was found to have acute hypercapnic resp failure with acute renal failure . 1- Acute hypercapnic resp failure due to COPD exa , diastolic heart failure and pleural effusions cont steoids taper. day 2/3 of 5 mg cont to hold diuresis due to worsening hypernatremia . HD today for volume management s/p R thoracocentesis 03/21. Exudative fluid , but cx Neg and cytology neg for malignancy 2- Cellultis of LE : cont aztreonama and clinda 3- KARLOS on CKD: on cacitriol and phoslo HD 4- Normocytic anemia. s/p transfusion. will give a break of labs tomorrow 5- Thrombocytopenia : nl plt at admission . 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 serotonine release assay pending . 6- HTN: better . cont norvasc 7- CAD : Stenting 03/23 . will resume ASA if PLT count remains above 70 K Visit type - Emergency Visit Emergency Visit: Yes ED Registration Date: 02/18/16 Care time: The patient presented to the Emergency Department on the above date and was hospitalized for further evaluation of their emergent condition. - New Patient This patient is new to me today: No - Critical Care Critical Care patient: No
[2016-03-26] MEDS ORDERED: ALPRAZolam 0.25 MG TABLET PO ONE ×2 (14:00→16:45)
[2016-03-27] MEDS: AZTREONAM 0.5 GM in DEXTROSE 5%-WATER - 50 ML IVPB SCH ×3 (01:44→18:43)
[2016-03-27] MEDS ORDERED: PT OWN MED DRAWER 7, Y5N ONE ×5 (01:46→22:42)
[2016-03-27] MEDS: CLINDAMYCIN IVPB 300 MG in DEXTROSE 5%-WATER - 48 ML IVPB SCH ×3 (02:00→18:43)
--- NOTE | 2016-03-27 07:19 | PN ---
Progress Note, Physician History of Present Illness: stable no events overnight legs improving but still cellulitis present swelling has decreased - Current Medication List Current Medications: Active Medications Acetaminophen (Tylenol -) 650 mg PO Q6H PRN PRN Reason: FEVER OR PAIN Acetylcysteine (Mucomyst 20 Oral / Inh Use Only*) 200 mg NEB BID [facility] Last Admin: 03/26/16 22:12 Dose: 200 mg Albuterol Sulfate (Ventolin 0.042trength) -) 1 amp NEB Q6H PRN PRN Reason: SHORT OF BREATH/WHEEZING Amlodipine Besylate (Norvasc -) 10 mg PO DAILY [facility] Last Admin: 03/26/16 10:56 Dose: 10 mg Arformoterol Tartrate (Brovana (Restricted To Pulmonology/Resp) -) 1 amp NEB BID [facility] Last Admin: 03/26/16 22:12 Dose: 1 amp Calcitriol (Rocaltrol -) 0.25 mcg PO DAILY [facility] Last Admin: 03/26/16 10:56 Dose: 0.25 mcg Calcium Acetate (Phoslo -) 1,334 mg PO TIDCM [facility] Last Admin: 03/26/16 17:07 Dose: 1,334 mg Docusate Sodium (Colace -) 100 mg PO BID PRN PRN Reason: CONSTIPATION Last Admin: 03/22/16 22:11 Dose: 100 mg Duloxetine HCl (Cymbalta -) 40 mg PO DAILY [facility] Last Admin: 03/26/16 10:55 Dose: 40 mg Epoetin [place] (Procrit -) 20,000 unit SQ MoWeFr@1000 [facility] Last Admin: 03/24/16 15:10 Dose: 20,000 unit Aztreonam 0.5 gm/ Dextrose 50 mls @ 100 mls/hr IVPB Q8H-IV [facility] Last Admin: 03/27/16 01:44 Dose: 100 mls/hr Clindamycin Phosphate 300 mg/ (Dextrose) 50 mls @ 104 mls/hr IVPB Q8H-IV [facility] Last Admin: 03/27/16 02:00 Dose: 104 mls/hr Lactobacillus Acidophilus (Bacid -) 1 tab PO DAILY [facility] Last Admin: 03/26/16 10:55 Dose: 1 tab Pantoprazole Sodium (Protonix -) 40 mg PO DAILY [facility] Last Admin: 03/26/16 10:55 Dose: 40 mg Polyethylene Glycol (Miralax (For Daily Use) -) 17 gm PO DAILY [facility] Last Admin: 03/26/16 10:56 Dose: 17 gm Prednisone (Deltasone -) 5 mg PO DAILY [facility] Last Admin: 03/26/16 10:56 Dose: 5 mg Pregabalin (Lyrica -) 50 mg PO DAILY [facility] Last Admin: 03/26/16 10:55 Dose: 50 mg Silver Sulfadiazine (Silvadene -) 1 applic TP DAILY [facility] Last Admin: 03/26/16 10:56 Dose: 1 applic Sodium Chloride ([place] Nasal [place] -) 2 spray NS BID PRN PRN Reason: NASAL CONGESTION Tiotropium [place] (Spiriva -) 1 puff IH DAILY [facility] Last Admin: 03/26/16 10:54 Dose: 1 puff Zinc Oxide/Panthenol/Vitamin E (Balmex Cream -) 1 applic TP ASDIR PRN PRN Reason: HYGEINE - Objective Vital Signs: Vital Signs Temperature 99.3 F 03/27/16 06:00 Pulse Rate 101 H 03/27/16 06:00 Respiratory Rate 20 03/27/16 06:00 Blood Pressure 139/64 03/27/16 06:00 O2 Sat by Pulse Oximetry (%) 94 L 03/27/16 06:46 Constitutional: Yes: No Distress, Calm Cardiovascular: Yes: Regular Rate and Rhythm Respiratory: Yes: On BiPap, Poor Air Entry Gastrointestinal: Yes: Normal Bowel Sounds, Soft Musculoskeletal: Yes: Other Extremities: Yes: Erythema, Other Edema: LLE: 2+, RLE: 2+ Neurological: Yes: Alert, Oriented Psychiatric: Yes: Alert Labs: CBC, BMP 03/26/16 06:00 03/26/16 06:00 INR, PTT INR 1.16 (0.82-1.09) H 03/20/16 09:20 Fibrinogen 547.0 mg/dL (238-498) H 03/17/16 06:30 Assessment/Plan 75 year-old man with a PMH of HTN, PVD, COPD, CKD (baseline Cr 1.9), nephrolithiasis, and chronic LE lymphedema. Admitted in acute renal failure. Acute on chronic renal failure Hyperkalemia Sepsis s Hypertension Peripheral vascular disease Hypercarbic respiratory failure COPD bilateral cellulitis of the legs rsv lung infection pleural effusion anemia plan cellulitis improving continue abx weakness no events physio if possible patient still has warmth and redness of the legs
[2016-03-27] MEDS: CALCIUM ACETATE 667 MG CAPSULE (FP) PO SCH ×3 (08:22→18:42)
[2016-03-27] MEDS: ARFORMOTEROL TARTRATE 15 MCG/2 ML VIAL NEB SCH ×4 (10:35→22:22)
[2016-03-27] MEDS: ACETYLCYSTEINE 20% 200MG/ML 4 ML VIAL *FOR ORAL / INH USE ONLY NEB SCH ×2 (11:00→22:21)
[2016-03-27] MEDS: EPOETIN ALFA 20,000 UNIT/1 ML VIAL SQ SCH (11:48)
--- NOTE | 2016-03-27 12:11 | PN ---
Progress Note, Physician History of Present Illness: seen and examined today in nad. still sob but seems slightly better. - Current Medication List Current Medications: Active Medications Acetaminophen (Tylenol -) 650 mg PO Q6H PRN PRN Reason: FEVER OR PAIN Acetylcysteine (Mucomyst 20 Oral / Inh Use Only*) 200 mg NEB BID [facility] Last Admin: 03/26/16 22:12 Dose: 200 mg Albuterol Sulfate (Ventolin 0.042trength) -) 1 amp NEB Q6H PRN PRN Reason: SHORT OF BREATH/WHEEZING Amlodipine Besylate (Norvasc -) 10 mg PO DAILY [facility] Last Admin: 03/26/16 10:56 Dose: 10 mg Arformoterol Tartrate (Brovana (Restricted To Pulmonology/Resp) -) 1 amp NEB BID [facility] Calcitriol (Rocaltrol -) 0.25 mcg PO DAILY [facility] Last Admin: 03/26/16 10:56 Dose: 0.25 mcg Calcium Acetate (Phoslo -) 1,334 mg PO TIDCM [facility] Last Admin: 03/27/16 08:22 Dose: 1,334 mg Docusate Sodium (Colace -) 100 mg PO BID PRN PRN Reason: CONSTIPATION Last Admin: 03/22/16 22:11 Dose: 100 mg Duloxetine HCl (Cymbalta -) 40 mg PO DAILY [facility] Last Admin: 03/26/16 10:55 Dose: 40 mg Epoetin Keith (Procrit -) 20,000 unit SQ MoWeFr@1000 [facility] Last Admin: 03/27/16 11:48 Dose: 20,000 unit Aztreonam 0.5 gm/ Dextrose 50 mls @ 100 mls/hr IVPB Q8H-IV [facility] Last Admin: 03/27/16 01:44 Dose: 100 mls/hr Clindamycin Phosphate 300 mg/ (Dextrose) 50 mls @ 104 mls/hr IVPB Q8H-IV [facility] Last Admin: 03/27/16 02:00 Dose: 104 mls/hr Lactobacillus Acidophilus (Bacid -) 1 tab PO DAILY [facility] Last Admin: 03/26/16 10:55 Dose: 1 tab Pantoprazole Sodium (Protonix -) 40 mg PO DAILY [facility] Last Admin: 03/26/16 10:55 Dose: 40 mg Polyethylene Glycol (Miralax (For Daily Use) -) 17 gm PO DAILY [facility] Last Admin: 03/26/16 10:56 Dose: 17 gm Prednisone (Deltasone -) 5 mg PO DAILY [facility] Last Admin: 03/26/16 10:56 Dose: 5 mg Pregabalin (Lyrica -) 50 mg PO DAILY [facility] Last Admin: 03/26/16 10:55 Dose: 50 mg Silver Sulfadiazine (Silvadene -) 1 applic TP DAILY [facility] Last Admin: 03/26/16 10:56 Dose: 1 applic Sodium Chloride ([place] Nasal [place] -) 2 spray NS BID PRN PRN Reason: NASAL CONGESTION Tiotropium [place] (Spiriva -) 1 puff IH DAILY [facility] Last Admin: 03/26/16 10:54 Dose: 1 puff Zinc Oxide/Panthenol/Vitamin E (Balmex Cream -) 1 applic TP ASDIR PRN PRN Reason: HYGEINE - Objective Vital Signs: Vital Signs Temperature 98.8 F 03/27/16 10:50 Pulse Rate 91 H 03/27/16 11:25 Respiratory Rate 18 03/27/16 11:25 Blood Pressure 148/70 03/27/16 11:25 O2 Sat by Pulse Oximetry (%) 94 L 03/27/16 06:46 Constitutional: Yes: No Distress, Anxious, Obese Eyes: Yes: WNL, Conjunctiva Clear, EOM Intact HENT: Yes: WNL, Atraumatic, Normocephalic Neck: Yes: WNL, Supple, Trachea Midline Cardiovascular: Yes: Regular Rate and Rhythm, S1, S2. No: Bradycardia, Tachycardia, Pulse Irregular, Bruit, JVD, Gallop, Murmur, Rub, S3, S4, Varicosities Respiratory: Yes: Regular, Diminished, Rales, Rhonchi Gastrointestinal: Yes: WNL, Normal Bowel Sounds, Soft. No: Distention, Tenderness Edema: Yes Edema: LLE: 3+, RLE: 3+ Peripheral Pulses WNL: Yes Peripheral Pulses: Left Doralis Pedis: 2+, Right Dorsalis Pedis: 2+ Integumentary: Yes: Venous Stasis Changes Neurological: Yes: Alert, Oriented Psychiatric: Yes: Alert, Oriented Labs: INR, PTT INR 1.16 (0.82-1.09) H 03/20/16 09:20 Fibrinogen 547.0 mg/dL (238-498) H 03/17/16 06:30 - ....Imaging Chest X-ray: Report Reviewed, Image Reviewed EKG: Report Reviewed, Image Reviewed Other: Report Reviewed, Image Reviewed Assessment/Plan thrombocytopenia of unclear etiology Acute on chronic renal failure CAD stents this year Chronic diastolic CHF RSV lung infection REC: -Antiplatelet Rx has been on hold for thoracentesis and thrombocytopenia: platelet count slowly improving -platelet count pending today, if again close to 70K would favor resume ASA 81mg daily given CAD with stents this year -planned for HD today, volume removal as tolerates
[2016-03-27 12:18] LABS: MCHC 29.8 g/dl (32.0-35.9); MEAN CELL VOLUME 87.1 fl (80-96); MEAN PLT VOLUME 9.1 fl (7.5-11.1); PLATELET COUNT 121 K/MM3 (134-434); RDW 20.9 % (11.9-15.9); WHITE BLOOD COUNT 4.8 K/mm3 (4.0-10.0)
--- NOTE | 2016-03-27 12:18 | PN ---
Teaching Attending Note Name of Resident: Zachery Blum ATTENDING PHYSICIAN STATEMENT I saw and evaluated the patient. I reviewed the resident's note and discussed the case with the resident. I agree with the resident's findings and plan as documented. SUBJECTIVE: cont to have SOB , no cough , insomnia over night . LE edema has improved. no events over night OBJECTIVE: NAD Cv : RRR Lungs: decreased breath sounds at bases ,no wheezes heard anteriorly ext : 3 + pitting edema , erythema and thick skin with no discharge ASSESSMENT AND PLAN: 75 year-old man with a PMHx of HTN, PVD, COPD, CKD (baseline Cr 1.8), nephrolithiasis, D CHF , CAD s/p stenting in 03/23 and chronic LE lymphedema. presented with SOB and was found to have acute hypercapnic resp failure with acute renal failure . 1- Acute hypercapnic resp failure due to COPD exa , diastolic heart failure and pleural effusions s/p R and L thoracocentesis will dc steroids today cont to hold diuresis due to hypernatremia . HD today for volume management 2- Cellultis of LE : improved . cont aztreonama and clinda 3- KARLOS on CKD: on cacitriol and phoslo HD labs are pending for today 4- Normocytic anemia. s/p transfusion. cont to monitor . transfuse PRN 5- Thrombocytopenia : nl plt at admission . 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 serotonine release assay pending .\ CBC pending 6- HTN: cont norvasc 7- CAD : Stenting 03/23 will resume ASA if PLT count remains above 70 K
[2016-03-27 12:23] LABS: ALBUMIN 2.1 g/dl (3.4-5.0); BILIRUBIN,TOTAL 0.9 mg/dL (0.2-1.0); CALCIUM 7.4 mg/dL (8.5-10.1); CREATININE 2.2 mg/dL (0.7-1.3); PHOSPHOROUS 2.8 mg/dL (2.5-4.9); TOT PROT 5.1 g/dl (6.4-8.2)
--- NOTE | 2016-03-27 12:42 | PN ---
Progress Note (short form) - Note Progress Note: Renal Follow up for KARLOS Pt seen and examined at dialysis BP stable Goal UF is 3L as tolerated continues to have mild sob Vital Signs Temperature 98.8 F 03/27/16 10:50 Pulse Rate 91 H 03/27/16 11:55 Respiratory Rate 18 03/27/16 11:55 Blood Pressure 143/70 03/27/16 11:55 O2 Sat by Pulse Oximetry (%) 92 L 03/27/16 10:30 Intake & Output 03/24/16 03/25/16 03/26/16 03/27/16 23:59 23:59 23:59 23:59 Intake Total 148 191 2802 100 Output Total 900 1150 2400 500 Balance 62 650 -1400 -400 Gen: NAD CVS: RRR No M/R Lungs: dec BS throughout the lung rey Abd: Soft NT + Mild distension Ext: > 3+ edema, no cyanosis or clubbing CBC, BMP 03/27/16 10:55 03/27/16 10:55 Current Medications Acetaminophen (Tylenol -) 650 mg PO Q6H PRN PRN Reason: FEVER OR PAIN Acetylcysteine (Mucomyst 20 Oral / Inh Use Only*) 200 mg NEB BID [facility] Last Admin: 03/27/16 11:00 Dose: Not Given Albuterol Sulfate (Ventolin 0.042trength) -) 1 amp NEB Q6H PRN PRN Reason: SHORT OF BREATH/WHEEZING Amlodipine Besylate (Norvasc -) 10 mg PO DAILY [facility] Last Admin: 03/26/16 10:56 Dose: 10 mg Arformoterol Tartrate (Brovana (Restricted To Pulmonology/Resp) -) 1 amp NEB BID [facility] Last Admin: 03/27/16 11:00 Dose: Not Given Calcitriol (Rocaltrol -) 0.25 mcg PO DAILY [facility] Last Admin: 03/26/16 10:56 Dose: 0.25 mcg Calcium Acetate (Phoslo -) 1,334 mg PO TIDCM [facility] Last Admin: 03/27/16 08:22 Dose: 1,334 mg Docusate Sodium (Colace -) 100 mg PO BID PRN PRN Reason: CONSTIPATION Last Admin: 03/22/16 22:11 Dose: 100 mg Duloxetine HCl (Cymbalta -) 40 mg PO DAILY [facility] Last Admin: 03/26/16 10:55 Dose: 40 mg Epoetin [place] (Procrit -) 20,000 unit SQ MoWeFr@1000 [facility] Last Admin: 03/27/16 11:48 Dose: 20,000 unit Aztreonam 0.5 gm/ Dextrose 50 mls @ 100 mls/hr IVPB Q8H-IV [facility] Last Admin: 03/27/16 01:44 Dose: 100 mls/hr Clindamycin Phosphate 300 mg/ (Dextrose) 50 mls @ 104 mls/hr IVPB Q8H-IV [facility] Last Admin: 03/27/16 02:00 Dose: 104 mls/hr Lactobacillus Acidophilus (Bacid -) 1 tab PO DAILY [facility] Last Admin: 03/26/16 10:55 Dose: 1 tab Pantoprazole Sodium (Protonix -) 40 mg PO DAILY [facility] Last Admin: 03/26/16 10:55 Dose: 40 mg Polyethylene Glycol (Miralax (For Daily Use) -) 17 gm PO DAILY [facility] Last Admin: 03/26/16 10:56 Dose: 17 gm Prednisone (Deltasone -) 5 mg PO DAILY [facility] Last Admin: 03/26/16 10:56 Dose: 5 mg Pregabalin (Lyrica -) 50 mg PO DAILY [facility] Last Admin: 03/26/16 10:55 Dose: 50 mg Silver Sulfadiazine (Silvadene -) 1 applic TP DAILY [facility] Last Admin: 03/26/16 10:56 Dose: 1 applic Sodium Chloride ([place] Nasal [place] -) 2 spray NS BID PRN PRN Reason: NASAL CONGESTION Tiotropium [place] (Spiriva -) 1 puff IH DAILY [facility] Last Admin: 03/26/16 10:54 Dose: 1 puff Zinc Oxide/Panthenol/Vitamin E (Balmex Cream -) 1 applic TP ASDIR PRN PRN Reason: HYGEINE A/P 75 year old Gentleman with PMhx of CKD Stage 3 (baseline Cr 1.9), Hx of Nephrolithiasis, Hypertension, COPD, CHF, PVD, Chronic LE lymph edema who was sent into the ED from wound care for increased lethargy and decreased urination for several days with KARLOS with BUN/Cr of 115/7.2 and K of 6.5 #Acute Renal Failure with incomplete recovery now with fluid overload requiring dialysis again Tolerating dialysis well UF 3L today Will continue HD MWF with some isolated UF inbetween for extra fluid removal Continue to hold torsemide #Anemia Hgb stable contiuie Procrit #LE edema/Cellulitis Abx as per ID Wound care Compression #Hypernatremia Free water intake as tolerated hold diuretics for now Melvin Johnson DO
--- NOTE | 2016-03-27 13:43 | PN ---
Physical Exam: SUBJECTIVE: Patient seen and examined Pt complained feeling lousy and having difficulty sleeping at night Pt also complained of not having bowel movement in multiple days Denies fever, chills, nausea, vomiting, chest pain, palpitation, shortness of breath OBJECTIVE: Vital Signs Period Temp Pulse Resp BP Sys/[place] Pulse Ox Last 24 Hr 98.4 F-99.6 F 83-101 18-22 126-162/47-73 92-94 GENERAL: The patient is awake, alert, and fully oriented, in mild resp distress. HEAD: Normal with no signs of trauma. EYES: PERRL, extraocular movements intact, sclera anicteric, conjunctiva clear. No ptosis. ENT: Ears normal, nares patent, oropharynx clear without exudates, moist mucous membranes. NECK: Trachea midline, full range of motion, supple. LUNGS: tachypnea 22, b/l crackles, HEART: Regular rate and rhythm, S1, S2 without murmur, rub or gallop. ABDOMEN: Soft, nontender, nondistended, normoactive bowel sounds, no guarding, no rebound, no hepatosplenomegaly, no masses. EXTREMITIES: 2+ pulses, warm, well-perfused. b/l lower ext edema 2+ with mild redness NEUROLOGICAL: Cranial nerves II through XII grossly intact. Normal speech, gait not observed. Strength 5/5 in all ext PSYCH: Normal mood, normal affect. SKIN: Warm, dry, normal turgor,edema 2+ and erythema in b/l lower ext from feet to knees Laboratory Results - last 24 hr 03/27/16 03/27/16 10:55 10:55 WBC 4.8 RBC 3.08 L Hgb 8.0 L Hct 26.8 L MCV 87.1 MCHC 29.8 L RDW 20.9 H Plt Count 121 L D MPV 9.1 Sodium 149 H Potassium 4.0 Chloride 110 H Carbon Dioxide 36 H Anion Gap 3 L BUN 47 H Creatinine 2.2 H Creat Clearance w eGFR 29.49 Random Glucose 96 Calcium 7.4 L Phosphorus 2.8 Total Bilirubin 0.9 D AST 12 L D ALT 14 D Alkaline Phosphatase 101 Total Protein 5.1 L Albumin 2.1 L Active Medications Generic Name Dose Route Start Last Admin Trade Name Freq PRN Reason Stop Dose Admin Acetaminophen 650 mg 03/22/16 16:39 Tylenol - PO Q6H PRN FEVER OR PAIN Acetylcysteine 200 mg 03/22/16 22:00 03/27/16 11:00 Mucomyst 20 Oral / Inh Use Only* NEB Not Given BID [facility] Albuterol Sulfate 1 amp 03/27/16 10:48 Ventolin 0.042trength) - NEB Q6H PRN SHORT OF BREATH/WHEEZING Amlodipine Besylate 10 mg 03/23/16 10:00 03/26/16 10:56 Norvasc - PO 10 mg DAILY [facility] Administration Arformoterol Tartrate 1 amp 03/27/16 11:00 03/27/16 11:00 Brovana (Restricted To Pulmonology/Resp) - NEB Not Given BID [facility] Calcitriol 0.25 mcg 03/23/16 10:00 03/26/16 10:56 Rocaltrol - PO 0.25 mcg DAILY [facility] Administration Calcium Acetate 1,334 mg 03/22/16 17:30 03/27/16 08:22 Phoslo - PO 1,334 mg TIDCM [facility] Administration Docusate Sodium 100 mg 03/22/16 16:39 03/22/16 22:11 Colace - PO 100 mg BID PRN Administration CONSTIPATION Duloxetine HCl 40 mg 03/26/16 10:00 03/26/16 10:55 Cymbalta - PO 40 mg DAILY [facility] Administration Epoetin Keith 20,000 unit 03/24/16 10:00 03/27/16 11:48 Procrit - SQ 20,000 unit MoWeFr@1000 [facility] Administration Aztreonam 0.5 gm/ Dextrose 50 mls @ 100 mls/hr 03/22/16 18:00 03/27/16 01:44 IVPB 100 mls/hr Q8H-IV [facility] Administration Clindamycin Phosphate 300 mg/ 50 mls @ 104 mls/hr 03/22/16 18:00 03/27/16 02:00 Dextrose IVPB 104 mls/hr Q8H-IV [facility] Administration Lactobacillus Acidophilus 1 tab 03/23/16 10:00 03/26/16 10:55 Bacid - PO 1 tab DAILY [facility] Administration Pantoprazole Sodium 40 mg 03/23/16 10:00 03/26/16 10:55 Protonix - PO 40 mg DAILY [facility] Administration Polyethylene Glycol 17 gm 03/23/16 10:00 03/26/16 10:56 Miralax (For Daily Use) - PO 17 gm DAILY [facility] Administration Prednisone 5 mg 03/24/16 15:57 03/26/16 10:56 Deltasone - PO 5 mg DAILY [facility] Administration Pregabalin 50 mg 03/23/16 10:00 03/26/16 10:55 Lyrica - PO 50 mg DAILY [facility] Administration Silver Sulfadiazine 1 applic 03/23/16 10:00 03/26/16 10:56 Silvadene - TP 1 applic DAILY [facility] Administration Sodium Chloride 2 spray 03/22/16 16:39 [place] Nasal [place] - NS BID PRN NASAL CONGESTION Tiotropium [place] 1 puff 03/23/16 10:00 03/26/16 10:54 Spiriva - IH 1 puff DAILY [facility] Administration Zinc Oxide/Panthenol/Vitamin E 1 applic 03/22/16 16:39 Balmex Cream - TP ASDIR PRN HYGEINE ASSESSMENT/PLAN: ASSESSMENT/PLAN: 75 year old male with pmh of COPD, PVD, Chronic lower ext lymphadema, CAD with stent, CHF, CKD with baseline creatinine of 1.9, nephrolithiasis presented to the ED with complaint of shortness of breath and cellulitis, patient was fount to have acute hypercapneic respiratory failure and acute renal failure Acute hypercapneic respiratory failure rt to COPD exacerbation and diastolic heart failure and pleural effusion Continue steroid taper reduce to 5 mg Po over the weekend, last dose today Continue bronchodilators Continue diuresis with torsemide 40mg po daily Receiving dialysis today for volume overload resistant to diuretics Has responded well to dialysis s/p Thoracentesis 03/21/16 and 03/07/16 Bilateral lower ext cellulitis Improving erythema, now more pink. Also less swelling in lower ext due to dialysis Continue Aztreonam 0.5gm q8h IV Continue clindamycin 300mg q8h IV Acute on Chronic kidney Injury Pt is receiving dialysis Continue to monitor BUN and Cr Monitor intake and output Continue Phoslo Continue Calcitriol Normocytic anemia likely due to chronic disease and renal disease Continue to monitor CBC daily Current Hgb 8.2, increased over the weekend PRN transfusion if Hbg less than 7 of if rapid drop and massive bleeding fecal occult blood positive, pt to follow up with GI once stable Thrombocytopenia Pt had normal platelet on admission, plt went as low as 42 Currently Plt 121, was 70 yesterday Continue to trend plt level No platelet transfusion needed right now Pt has HIT antibody positive, serotonin release essay is still pending 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 Disposition: keep in [facility] Visit type - Emergency Visit Emergency Visit: Yes ED Registration Date: 02/18/16 Care time: The patient presented to the Emergency Department on the above date and was hospitalized for further evaluation of their emergent condition. - New Patient This patient is new to me today: No - Critical Care Critical Care patient: No - Discharge Referral Referred to [facility] Med P.C.: No
[2016-03-27] MEDS: LACTOBACILLUS ACIDOPHILUS 1 EACH TAB (FP) PO SCH (15:08)
[2016-03-27] MEDS: predniSONE 5 MG TABLET (UD) PO SCH (15:08)
[2016-03-27] MEDS: PANTOPRAZOLE 40 MG TABLET (FP) PO SCH (15:08)
[2016-03-27] MEDS: POLYETHYLENE GLYCOL 3350 119 GM BTL PO SCH (15:09)
[2016-03-27] MEDS: amLODIPine BESYLATE 10 MG TABLET (FP) PO SCH (15:09)
[2016-03-27] MEDS: PREGABALIN 50 MG CAPSULE PO SCH (15:09)
[2016-03-27] MEDS: TIOTROPIUM BROMIDE 18 MCG/INH (DEVICE W/ 5 CAPSULES) IH SCH (15:10)
[2016-03-27] MEDS: CALCITRIOL 0.25 MCG CAPSULE (FP) PO SCH (15:10)
[2016-03-27] MEDS: DULoxetine HCL 20 MG CAPSULE.DR (FP) PO SCH (15:14)
[2016-03-27] MEDS: ZINC OXIDE/PANTHENOL/VITAMIN E 56 GM TUBE TP PRN (15:41)
[2016-03-27] MEDS: SILVER SULFADIAZINE 1% TOP CREAM 50 GM JAR TP SCH (16:21)
--- NOTE | 2016-03-27 19:04 | PN ---
Progress Note, Physician History of Present Illness: NAD. Oriented and alert. - Current Medication List Current Medications: Active Medications Acetaminophen (Tylenol -) 650 mg PO Q6H PRN PRN Reason: FEVER OR PAIN Acetylcysteine (Mucomyst 20 Oral / Inh Use Only*) 200 mg NEB BID [facility] Last Admin: 03/27/16 11:00 Dose: Not Given Albuterol Sulfate (Ventolin 0.042trength) -) 1 amp NEB Q6H PRN PRN Reason: SHORT OF BREATH/WHEEZING Amlodipine Besylate (Norvasc -) 10 mg PO DAILY [facility] Last Admin: 03/27/16 15:09 Dose: 10 mg Arformoterol Tartrate (Brovana (Restricted To Pulmonology/Resp) -) 1 amp NEB BID [facility] Last Admin: 03/27/16 14:45 Dose: 1 amp Aspirin (Ecotrin -) 81 mg PO DAILY [facility] Calcitriol (Rocaltrol -) 0.25 mcg PO DAILY [facility] Last Admin: 03/27/16 15:10 Dose: 0.25 mcg Calcium Acetate (Phoslo -) 1,334 mg PO TIDCM [facility] Last Admin: 03/27/16 18:42 Dose: 1,334 mg Docusate Sodium (Colace -) 100 mg PO BID [facility] Duloxetine HCl (Cymbalta -) 40 mg PO DAILY [facility] Last Admin: 03/27/16 15:14 Dose: 40 mg Epoetin [place] (Procrit -) 20,000 unit SQ MoWeFr@1000 [facility] Last Admin: 03/27/16 11:48 Dose: 20,000 unit Aztreonam 0.5 gm/ Dextrose 50 mls @ 100 mls/hr IVPB Q8H-IV [facility] Last Admin: 03/27/16 18:43 Dose: Not Given Clindamycin Phosphate 300 mg/ (Dextrose) 50 mls @ 104 mls/hr IVPB Q8H-IV [facility] Last Admin: 03/27/16 18:43 Dose: Not Given Lactobacillus Acidophilus (Bacid -) 1 tab PO DAILY [facility] Last Admin: 03/27/16 15:08 Dose: 1 tab Pantoprazole Sodium (Protonix -) 40 mg PO DAILY [facility] Last Admin: 03/27/16 15:08 Dose: 40 mg Polyethylene Glycol (Miralax (For Daily Use) -) 17 gm PO DAILY [facility] Last Admin: 03/27/16 15:09 Dose: 17 gm Prednisone (Deltasone -) 5 mg PO DAILY [facility] Last Admin: 03/27/16 15:08 Dose: 5 mg Pregabalin (Lyrica -) 50 mg PO DAILY [facility] Last Admin: 03/27/16 15:09 Dose: 50 mg Silver Sulfadiazine (Silvadene -) 1 applic TP DAILY [facility] Last Admin: 03/27/16 16:21 Dose: 1 applic Sodium Chloride ([place] Nasal [place] -) 2 spray NS BID PRN PRN Reason: NASAL CONGESTION Tiotropium [place] (Spiriva -) 1 puff IH DAILY [facility] Last Admin: 03/27/16 15:10 Dose: 1 puff Zinc Oxide/Panthenol/Vitamin E (Balmex Cream -) 1 applic TP ASDIR PRN PRN Reason: HYGEINE Last Admin: 03/27/16 15:41 Dose: 1 applic - Objective Vital Signs: Vital Signs Temperature 98.3 F 03/27/16 17:57 Pulse Rate 92 H 03/27/16 17:57 Respiratory Rate 20 03/27/16 17:57 Blood Pressure 118/50 03/27/16 17:57 O2 Sat by Pulse Oximetry (%) 94 L 03/27/16 14:36 Constitutional: No: No Distress Eyes: No: Sclera Icterus HENT: Yes: Atraumatic, Normocephalic Neck: No: Trachea Midline Cardiovascular: Yes: Regular Rate and Rhythm. No: JVD Respiratory: Yes: Diminished (bilateral) Gastrointestinal: Yes: Soft. No: Tenderness Extremities: Yes: Other (legs wrapped. Edema of feet appears reduced post dialysis treatments) Edema: Yes Labs: CBC, BMP 03/27/16 10:55 03/27/16 10:55 INR, PTT INR 1.16 (0.82-1.09) H 03/20/16 09:20 Fibrinogen 547.0 mg/dL (238-498) H 03/17/16 06:30 Problem List - Problems (1) COPD exacerbation Code(s): J44.1 - CHRONIC OBSTRUCTIVE PULMONARY DISEASE W (ACUTE) EXACERBATION (2) Acute and chronic respiratory failure ([id number]) Code(s): J96.20 - ACUTE AND CHR RESP FAILURE, UNSP W HYPOXIA OR HYPERCAPNIA Qualifiers: Qualified Code(s): J96.21 - Acute and chronic respiratory failure with hypoxia (3) Acute kidney failure Code(s): N17.9 - ACUTE KIDNEY FAILURE, UNSPECIFIED Qualifiers: Qualified Code(s): N17.9 - Acute kidney failure, unspecified (4) Chronic kidney disease (CKD) Code(s): N18.9 - CHRONIC KIDNEY DISEASE, UNSPECIFIED Qualifiers: Qualified Code(s): N18.9 - Chronic kidney disease, unspecified (5) Cellulitis Code(s): L03.90 - CELLULITIS, UNSPECIFIED (6) Hyperkalemia Code(s): E87.5 - HYPERKALEMIA (7) Arteriosclerotic heart disease (ASHD) Code(s): I25.10 - ATHSCL HEART DISEASE OF [place] CORONARY ARTERY W/O ANG PCTRS (8) Obesities, morbid Code(s): E66.01 - MORBID (SEVERE) OBESITY DUE TO EXCESS CALORIES Qualifiers: Qualified Code(s): E66.2 - Morbid (severe) obesity with alveolar hypoventilation Assessment/Plan Cellulitis legs: patient on antibiotics COPD Acute on chronic hypercapnic respiratory failure-using BIPAP a large part of the time CAD; S/P stents; no chest pain or palpitations. CHF/fluid overload . Dialysis done today. Respiratory status seems mildly improved. Edema reduced Acute Renal Failure Chronic Renal Insufficiency Plan: Prednisone 10 mg daily Inhaled bronchodilator NIPPV PRN Monitor blood counts; transfuse PRN Antibiotics per I.D. Dialysis for fluid removal per renal; monitor for hypotension On Cymbalta for depression.
--- NOTE | 2016-03-27 20:29 | PN ---
Progress Note (short form) - Note Progress Note: Patient seen and examined mildly dyspneic Last Vital Signs Temp Pulse Resp BP Pulse Ox 98.3 F 92 H 20 118/50 94 L 03/27/16 17:57 03/27/16 17:57 03/27/16 17:57 03/27/16 17:57 03/27/16 14:36 Cor: RSR, No murmurs, No gallops Lungs: decreased at bases Abd: Soft, Normal bowel sounds, No organomegaly Ext: cellulitis/4= venous stasis Abnormal Lab Results 03/27/16 03/27/16 10:55 10:55 RBC 3.08 L Hgb 8.0 L Hct 26.8 L MCHC 29.8 L RDW 20.9 H Plt Count 121 L D Sodium 149 H Chloride 110 H Carbon Dioxide 36 H Anion Gap 3 L BUN 47 H Creatinine 2.2 H Calcium 7.4 L AST 12 L D Total Protein 5.1 L Albumin 2.1 L Current Medications Acetaminophen (Tylenol -) 650 mg PO Q6H PRN PRN Reason: FEVER OR PAIN Acetylcysteine (Mucomyst 20 Oral / Inh Use Only*) 200 mg NEB BID [facility] Last Admin: 03/27/16 11:00 Dose: Not Given Albuterol Sulfate (Ventolin 0.042trength) -) 1 amp NEB Q6H PRN PRN Reason: SHORT OF BREATH/WHEEZING Amlodipine Besylate (Norvasc -) 10 mg PO DAILY [facility] Last Admin: 03/27/16 15:09 Dose: 10 mg Arformoterol Tartrate (Brovana (Restricted To Pulmonology/Resp) -) 1 amp NEB BID [facility] Last Admin: 03/27/16 14:45 Dose: 1 amp Aspirin (Ecotrin -) 81 mg PO DAILY [facility] Calcitriol (Rocaltrol -) 0.25 mcg PO DAILY [facility] Last Admin: 03/27/16 15:10 Dose: 0.25 mcg Calcium Acetate (Phoslo -) 1,334 mg PO TIDCM [facility] Last Admin: 03/27/16 18:42 Dose: 1,334 mg Docusate Sodium (Colace -) 100 mg PO BID [facility] Duloxetine HCl (Cymbalta -) 40 mg PO DAILY [facility] Last Admin: 03/27/16 15:14 Dose: 40 mg Epoetin Keith (Procrit -) 20,000 unit SQ MoWeFr@1000 [facility] Last Admin: 03/27/16 11:48 Dose: 20,000 unit Aztreonam 0.5 gm/ Dextrose 50 mls @ 100 mls/hr IVPB Q8H-IV [facility] Last Admin: 03/27/16 18:43 Dose: Not Given Clindamycin Phosphate 300 mg/ (Dextrose) 50 mls @ 104 mls/hr IVPB Q8H-IV [facility] Last Admin: 03/27/16 18:43 Dose: Not Given Lactobacillus Acidophilus (Bacid -) 1 tab PO DAILY [facility] Last Admin: 03/27/16 15:08 Dose: 1 tab Pantoprazole Sodium (Protonix -) 40 mg PO DAILY [facility] Last Admin: 03/27/16 15:08 Dose: 40 mg Polyethylene Glycol (Miralax (For Daily Use) -) 17 gm PO DAILY [facility] Last Admin: 03/27/16 15:09 Dose: 17 gm Prednisone (Deltasone -) 5 mg PO DAILY [facility] Last Admin: 03/27/16 15:08 Dose: 5 mg Pregabalin (Lyrica -) 50 mg PO DAILY [facility] Last Admin: 03/27/16 15:09 Dose: 50 mg Silver Sulfadiazine (Silvadene -) 1 applic TP DAILY [facility] Last Admin: 03/27/16 16:21 Dose: 1 applic Sodium Chloride ([place] Nasal [place] -) 2 spray NS BID PRN PRN Reason: NASAL CONGESTION Tiotropium [place] (Spiriva -) 1 puff IH DAILY [facility] Last Admin: 03/27/16 15:10 Dose: 1 puff Zinc Oxide/Panthenol/Vitamin E (Balmex Cream -) 1 applic TP ASDIR PRN PRN Reason: HYGEINE Last Admin: 03/27/16 15:41 Dose: 1 applic a/P 75 y/o patient with morbid obesity, CAD, COPD, CHF,pleural effusions, KARLOS on CKD, RSV infection now with worsening cellulitis s/p thoracentesis 03/07 We have been consulted for worsening thrombocytopenia Suspect worsening cellulitis/infection/ given low garde fevers aswell. Unlikely HIT--last exposuree 02/17-02/22 --time frame and clinical scenario make it less likely suspect false + HIT --MICHAEL is negative--result in chart platelets improving slowly with improvement of infection? could resume ASA resume lovenox as DVT prophy also with anemia of chronic disease due to CKD. iron studies s/o anemia of chronic disease but stool occult + transfuse PRBCs for hgb <7 on procrit Ferritin 189 ? GI consult when feasible. Not a candidate for invasive w/u at this time. started protonix
[2016-03-27] MEDS ORDERED: ALBUTEROL SO4 0.083% IH SOL 2.5 MG/3 ML VIAL.NEB. NEB ONE (21:31)
[2016-03-27] MEDS: DOCUSATE SODIUM 100 MG CAPSULE (FP) PO SCH (22:00)
[2016-03-27] MEDS: ALBUTEROL SO4 0.042% IH SOL 1.25 MG/3 ML VIAL.NEB NEB PRN (22:22)
[2016-03-27] MEDS: ENOXAPARIN NA (PORCINE) 40 MG/0.4 ML DISP.SYRIN SQ SCH (22:44)
[2016-03-28] MEDS: AZTREONAM 0.5 GM in DEXTROSE 5%-WATER - 50 ML IVPB SCH ×3 (01:37→17:54)
[2016-03-28] MEDS: CLINDAMYCIN IVPB 300 MG in DEXTROSE 5%-WATER - 48 ML IVPB SCH ×3 (03:03→17:54)
[2016-03-28] MEDS: ACETAMINOPHEN 325 MG TABLET (FP) PO PRN ×3 (05:50→15:57)
[2016-03-28] MEDS ORDERED: ALBUTEROL SO4 0.083% IH SOL 2.5 MG/3 ML VIAL.NEB. NEB ONE (07:32)
[2016-03-28] MEDS: ALBUTEROL SO4 0.042% IH SOL 1.25 MG/3 ML VIAL.NEB NEB PRN ×2 (07:37→09:30)
[2016-03-28] MEDS: CALCIUM ACETATE 667 MG CAPSULE (FP) PO SCH ×3 (08:07→17:53)
--- NOTE | 2016-03-28 09:23 | PN ---
Progress Note, Physician Chief Complaint: appears clinically improved Denies chest pain or SOB - Current Medication List Current Medications: Active Medications Acetaminophen (Tylenol -) 650 mg PO Q6H PRN PRN Reason: FEVER OR PAIN Last Admin: 03/28/16 05:50 Dose: 650 mg Acetylcysteine (Mucomyst 20 Oral / Inh Use Only*) 200 mg NEB BID [facility] Last Admin: 03/27/16 22:21 Dose: 200 mg Albuterol Sulfate (Ventolin 0.042trength) -) 1 amp NEB Q6H PRN PRN Reason: SHORT OF BREATH/WHEEZING Last Admin: 03/28/16 07:37 Dose: 1 amp Amlodipine Besylate (Norvasc -) 10 mg PO DAILY [facility] Last Admin: 03/27/16 15:09 Dose: 10 mg Arformoterol Tartrate (Brovana (Restricted To Pulmonology/Resp) -) 1 amp NEB BID [facility] Last Admin: 03/27/16 22:22 Dose: Not Given Aspirin (Ecotrin -) 81 mg PO DAILY [facility] Calcitriol (Rocaltrol -) 0.25 mcg PO DAILY [facility] Last Admin: 03/27/16 15:10 Dose: 0.25 mcg Calcium Acetate (Phoslo -) 1,334 mg PO TIDCM [facility] Last Admin: 03/28/16 08:07 Dose: 1,334 mg Docusate Sodium (Colace -) 100 mg PO BID [facility] Last Admin: 03/27/16 22:00 Dose: 100 mg Duloxetine HCl (Cymbalta -) 40 mg PO DAILY [facility] Last Admin: 03/27/16 15:14 Dose: 40 mg Enoxaparin Sodium (Lovenox -) 40 mg SQ DAILY [facility] Last Admin: 03/27/16 22:44 Dose: 40 mg Epoetin [place] (Procrit -) 20,000 unit SQ MoWeFr@1000 [facility] Last Admin: 03/27/16 11:48 Dose: 20,000 unit Aztreonam 0.5 gm/ Dextrose 50 mls @ 100 mls/hr IVPB Q8H-IV [facility] Last Admin: 03/28/16 01:37 Dose: 100 mls/hr Clindamycin Phosphate 300 mg/ (Dextrose) 50 mls @ 104 mls/hr IVPB Q8H-IV [facility] Last Admin: 12/20/16 03:03 Dose: 104 mls/hr Lactobacillus Acidophilus (Bacid -) 1 tab PO DAILY [facility] Last Admin: 03/27/16 15:08 Dose: 1 tab Pantoprazole Sodium (Protonix -) 40 mg PO DAILY [facility] Last Admin: 03/27/16 15:08 Dose: 40 mg Polyethylene Glycol (Miralax (For Daily Use) -) 17 gm PO DAILY [facility] Last Admin: 03/27/16 15:09 Dose: 17 gm Prednisone (Deltasone -) 5 mg PO DAILY [facility] Last Admin: 03/27/16 15:08 Dose: 5 mg Pregabalin (Lyrica -) 50 mg PO DAILY [facility] Last Admin: 03/27/16 15:09 Dose: 50 mg Silver Sulfadiazine (Silvadene -) 1 applic TP DAILY [facility] Last Admin: 03/27/16 16:21 Dose: 1 applic Sodium Chloride ([place] Nasal [place] -) 2 spray NS BID PRN PRN Reason: NASAL CONGESTION Tiotropium [place] (Spiriva -) 1 puff IH DAILY [facility] Last Admin: 03/27/16 15:10 Dose: 1 puff Zinc Oxide/Panthenol/Vitamin E (Balmex Cream -) 1 applic TP ASDIR PRN PRN Reason: HYGEINE Last Admin: 03/27/16 15:41 Dose: 1 applic - Objective Vital Signs: Vital Signs Temperature 98.4 F 03/28/16 05:54 Pulse Rate 86 03/28/16 05:54 Respiratory Rate 20 03/28/16 05:54 Blood Pressure 138/67 03/28/16 05:54 O2 Sat by Pulse Oximetry (%) 94 L 03/27/16 21:00 Constitutional: Yes: No Distress Eyes: Yes: Conjunctiva Clear Cardiovascular: Yes: Regular Rate and Rhythm Respiratory: Yes: CTA Bilaterally Gastrointestinal: Yes: Soft, Abdomen, Obese Edema: Yes Edema: LLE: 2+, RLE: 2+ Neurological: Yes: Alert Labs: CBC, BMP 03/27/16 10:55 03/27/16 10:55 INR, PTT INR 1.16 (0.82-1.09) H 03/20/16 09:20 Fibrinogen 547.0 mg/dL (238-498) H 03/17/16 06:30 Laboratory Tests 03/27/16 03/27/16 10:55 10:55 WBC 4.8 Hgb 8.0 L Hct 26.8 L Plt Count 121 L D Sodium 149 H Potassium 4.0 Creatinine 2.2 H Assessment/Plan Assessment/Plan thrombocytopenia of unclear etiology Acute on chronic renal failure CAD stents this year Chronic diastolic CHF RSV lung infection REC: -Antiplatelet Rx resumed- aspirin 81mg daily -platelet count recovered -HD as per renal
[2016-03-28] MEDS: ACETYLCYSTEINE 20% 200MG/ML 4 ML VIAL *FOR ORAL / INH USE ONLY NEB SCH ×2 (09:30→22:06)
[2016-03-28] MEDS: ARFORMOTEROL TARTRATE 15 MCG/2 ML VIAL NEB SCH ×2 (09:32→22:06)
[2016-03-28] MEDS ORDERED: PT OWN MED DRAWER 7, Y5N ONE ×3 (09:49→17:44)
[2016-03-28] MEDS: LACTOBACILLUS ACIDOPHILUS 1 EACH TAB (FP) PO SCH (09:59)
[2016-03-28] MEDS: ASPIRIN COATED 81 MG TABLET.EC PO SCH (10:00)
[2016-03-28] MEDS: DULoxetine HCL 20 MG CAPSULE.DR (FP) PO SCH (10:00)
[2016-03-28] MEDS: DOCUSATE SODIUM 100 MG CAPSULE (FP) PO SCH ×2 (10:00→21:35)
[2016-03-28] MEDS: predniSONE 5 MG TABLET (UD) PO SCH (10:00)
[2016-03-28] MEDS: POLYETHYLENE GLYCOL 3350 119 GM BTL PO SCH (10:01)
[2016-03-28] MEDS: PREGABALIN 50 MG CAPSULE PO SCH (10:01)
[2016-03-28] MEDS: amLODIPine BESYLATE 10 MG TABLET (FP) PO SCH (10:01)
[2016-03-28] MEDS: PANTOPRAZOLE 40 MG TABLET (FP) PO SCH (10:02)
[2016-03-28] MEDS: TIOTROPIUM BROMIDE 18 MCG/INH (DEVICE W/ 5 CAPSULES) IH SCH (10:03)
[2016-03-28] MEDS: ENOXAPARIN NA (PORCINE) 40 MG/0.4 ML DISP.SYRIN SQ SCH (10:03)
[2016-03-28] MEDS: SILVER SULFADIAZINE 1% TOP CREAM 50 GM JAR TP SCH (10:04)
[2016-03-28] MEDS: CALCITRIOL 0.25 MCG CAPSULE (FP) PO SCH (10:27)
--- NOTE | 2016-03-28 13:33 | PN ---
Addendum entered and electronically signed by Zachery Blum, ALBERTO 03/28/16 17: 44: One hour later the temperature is 102.9 Stat CXR ordered Blood culture from dialysis access stat Urine culture, urinalysis stat one gram of vancomycin IV once stat Case discussed with Dr Szymanski who agrees with our plan of care and will follow up for the infectious disease standpoint. continue all other IV antibiotics unless changed by Dr Szymanski Addendum entered and electronically signed by Zachery Blum, ALBERTO 03/28/16 17: 43: Pt was shaking and having chills and rigors. Upon checking the pt temperature, it was 101.9 Tylenol ordered Blood culture stat lactic acid stat Original Note: Physical Exam: SUBJECTIVE: Patient seen and examined Pt is a better mood today He said he was feeling well and want to get out of bed Denies fever, chills, cough, chest pain, shortness of breath, palpitation, no lightheadedness Pt had dialysis yesterday OBJECTIVE: Vital Signs Period Temp Pulse Resp BP Sys/[place] Pulse Ox Last 24 Hr 98.3 F-98.6 F 83-92 18-20 118-156/50-88 91-94 GENERAL: The patient is awake, alert, and fully oriented, in mild resp distress. HEAD: Normal with no signs of trauma. EYES: PERRL, extraocular movements intact, sclera anicteric, conjunctiva clear. No ptosis. ENT: Ears normal, nares patent, oropharynx clear without exudates, dry mucous membranes. NECK: Trachea midline, full range of motion, supple. LUNGS: dimihshed , reduced b/l crackles in lung bases HEART: Regular rate and rhythm, S1, S2 without murmur, rub or gallop. ABDOMEN: Soft, nontender, nondistended, normoactive bowel sounds, no guarding, no rebound, no hepatosplenomegaly, no masses. EXTREMITIES: 2+ pulses, warm, well-perfused. b/l lower ext edema 2+ with mild redness, improving NEUROLOGICAL: Normal speech, gait not observed. Strength 5/5 in all ext PSYCH: Normal mood, normal affect. SKIN: Warm, dry, wringled skin in b/l lower ext,edema 2+ and erythema in b/l lower ext from feet to knees improving Active Medications Generic Name Dose Route Start Last Admin Trade Name Freq PRN Reason Stop Dose Admin Acetaminophen 650 mg 03/22/16 16:39 03/28/16 12:13 Tylenol - PO 650 mg Q6H PRN Administration FEVER OR PAIN Acetylcysteine 200 mg 03/22/16 22:00 03/28/16 09:30 Mucomyst 20 Oral / Inh Use Only* NEB 200 mg BID [facility] Administration Albuterol Sulfate 1 amp 03/27/16 10:48 03/28/16 09:30 Ventolin 0.042trength) - NEB 1 amp Q6H PRN Administration SHORT OF BREATH/WHEEZING Amlodipine Besylate 10 mg 03/23/16 10:00 03/28/16 10:01 Norvasc - PO 10 mg DAILY [facility] Administration Arformoterol Tartrate 1 amp 03/27/16 11:00 03/28/16 09:32 Brovana (Restricted To Pulmonology/Resp) - NEB Not Given BID [facility] Aspirin 81 mg 03/28/16 10:00 03/28/16 10:00 Ecotrin - PO 81 mg DAILY [facility] Administration Calcitriol 0.25 mcg 03/23/16 10:00 03/28/16 10:27 Rocaltrol - PO 0.25 mcg DAILY [facility] Administration Calcium Acetate 1,334 mg 03/22/16 17:30 03/28/16 12:13 Phoslo - PO 1,334 mg TIDCM [facility] Administration Docusate Sodium 100 mg 03/27/16 22:00 03/28/16 10:00 Colace - PO 100 mg BID [facility] Administration Duloxetine HCl 40 mg 03/26/16 10:00 03/28/16 10:00 Cymbalta - PO 40 mg DAILY [facility] Administration Enoxaparin Sodium 40 mg 03/27/16 20:45 03/28/16 10:03 Lovenox - SQ 40 mg DAILY [facility] Administration Epoetin Keith 20,000 unit 03/24/16 10:00 03/27/16 11:48 Procrit - SQ 20,000 unit MoWeFr@1000 [facility] Administration Aztreonam 0.5 gm/ Dextrose 50 mls @ 100 mls/hr 03/22/16 18:00 03/28/16 10:27 IVPB 100 mls/hr Q8H-IV [facility] Administration Clindamycin Phosphate 300 mg/ 50 mls @ 104 mls/hr 03/22/16 18:00 03/28/16 10:03 Dextrose IVPB 104 mls/hr Q8H-IV [facility] Administration Lactobacillus Acidophilus 1 tab 03/23/16 10:00 03/28/16 09:59 Bacid - PO 1 tab DAILY [facility] Administration Pantoprazole Sodium 40 mg 03/23/16 10:00 03/28/16 10:02 Protonix - PO 40 mg DAILY [facility] Administration Polyethylene Glycol 17 gm 03/23/16 10:00 03/28/16 10:01 Miralax (For Daily Use) - PO 17 gm DAILY [facility] Administration Prednisone 5 mg 03/24/16 15:57 03/28/16 10:00 Deltasone - PO 5 mg DAILY [facility] Administration Pregabalin 50 mg 03/23/16 10:00 03/28/16 10:01 Lyrica - PO 50 mg DAILY [facility] Administration Silver Sulfadiazine 1 applic 03/23/16 10:00 03/28/16 10:04 Silvadene - TP 1 applic DAILY [facility] Administration Sodium Chloride 2 spray 03/22/16 16:39 [place] Nasal [place] - NS BID PRN NASAL CONGESTION Tiotropium [place] 1 puff 03/23/16 10:00 03/28/16 10:03 Spiriva - IH 1 puff DAILY [facility] Administration Zinc Oxide/Panthenol/Vitamin E 1 applic 03/22/16 16:39 03/27/16 15:41 Balmex Cream - TP 1 applic ASDIR PRN Administration HYGEINE ASSESSMENT/PLAN: 75 year old male with pmh of COPD, PVD, Chronic lower ext lymphadema, CAD with stent, CHF, CKD with baseline creatinine of 1.9, nephrolithiasis presented to the ED with complaint of shortness of breath and cellulitis, patient was fount to have acute hypercapneic respiratory failure and acute renal failure Acute hypercapneic respiratory failure rt to COPD exacerbation and diastolic heart failure and pleural effusion Prednisone dc yesterday Continue bronchodilators Receiving dialysis today for volume overload resistant to diuretics Dialysis will be MWF until euvolemia and clnical improvement Has responded well to dialysis, consider keeping permacath in upon discharge for dialysis PRN or weekly dialysis for fluid overload as outpatient s/p Thoracentesis 03/21/16 and 03/07/16 Bilateral lower ext cellulitis Improving erythema, now more pink. Also less swelling in lower ext due to dialysis Continue Aztreonam 0.5gm q8h IV Continue clindamycin 300mg q8h IV Consider switching gradually to PO antibiotics tomorrow or if further improvement to cellulitis Acute on Chronic kidney Injury Pt is receiving dialysis MWF Continue to monitor BUN and Cr Monitor intake and output Continue Phoslo Continue Calcitriol Normocytic anemia likely due to chronic disease and renal disease Continue to monitor CBC daily Current Hgb 8 PRN transfusion if Hbg less than 7 of if rapid drop and massive bleeding fecal occult blood positive, pt to follow up with GI once stable Thrombocytopenia Pt had normal platelet on admission, plt went as low as 42 Currently Plt 121 PLt recovering , Continue to trend plt level No platelet transfusion needed right now Pt has HIT antibody positive, serotonin release essay is still pending 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 Hypertension Currently controlled on Norvasc Continue current dose of Norvasc Vitals Q4h Coronary artery disease s/p stenting on 03/2015 Plt 121 Pt started Aspirin today Constipation Pt is on Colace 100mg Po BID Pt is on miralax daily Enema PRN for constipation FEN Fluid: none Electrolytes: continue to monitor Nutrition: Diabetic low sodium diet Prophylaxis: Started on Lovenox 40mg SQ daily Start Aggressive PT BID [facility] Visit Emergency Visit: Yes ED Registration Date: 02/18/16 Care time: The patient presented to the Emergency Department on the above date and was hospitalized for further evaluation of their emergent condition. - New Patient This patient is new to me today: No - Critical Care Critical Care patient: No - Discharge Referral Referred to [facility] Med P.C.: No
--- NOTE | 2016-03-28 14:53 | PN ---
Progress Note (short form) - Note Progress Note: Renal Follow up for KARLOS Pt seen and examined at the bedside feels better clinically improved Vital Signs Temperature 98 F 03/28/16 09:00 Pulse Rate 83 03/28/16 09:30 Respiratory Rate 18 03/28/16 09:00 Blood Pressure 139/106 03/28/16 09:00 O2 Sat by Pulse Oximetry (%) 91 L 03/28/16 09:30 Gen: NAD CVS: RRR No M/R Lungs: dec BS throughout the lung rey Abd: Soft NT + Mild distension Ext: 2+ edema, legs in dressing CBC, BMP 03/27/16 10:55 03/27/16 10:55 Current Medications Acetaminophen (Tylenol -) 650 mg PO Q6H PRN PRN Reason: FEVER OR PAIN Last Admin: 03/28/16 12:13 Dose: 650 mg Acetylcysteine (Mucomyst 20 Oral / Inh Use Only*) 200 mg NEB BID [facility] Last Admin: 03/28/16 09:30 Dose: 200 mg Albuterol Sulfate (Ventolin 0.042trength) -) 1 amp NEB Q6H PRN PRN Reason: SHORT OF BREATH/WHEEZING Last Admin: 03/28/16 09:30 Dose: 1 amp Amlodipine Besylate (Norvasc -) 10 mg PO DAILY [facility] Last Admin: 03/28/16 10:01 Dose: 10 mg Arformoterol Tartrate (Brovana (Restricted To Pulmonology/Resp) -) 1 amp NEB BID [facility] Last Admin: 03/28/16 09:32 Dose: Not Given Aspirin (Ecotrin -) 81 mg PO DAILY [facility] Last Admin: 03/28/16 10:00 Dose: 81 mg Calcitriol (Rocaltrol -) 0.25 mcg PO DAILY [facility] Last Admin: 03/28/16 10:27 Dose: 0.25 mcg Calcium Acetate (Phoslo -) 1,334 mg PO TIDCM [facility] Last Admin: 03/28/16 12:13 Dose: 1,334 mg Docusate Sodium (Colace -) 100 mg PO BID [facility] Last Admin: 03/28/16 10:00 Dose: 100 mg Duloxetine HCl (Cymbalta -) 40 mg PO DAILY [facility] Last Admin: 03/28/16 10:00 Dose: 40 mg Enoxaparin Sodium (Lovenox -) 40 mg SQ DAILY [facility] Last Admin: 03/28/16 10:03 Dose: 40 mg Epoetin [place] (Procrit -) 20,000 unit SQ MoWeFr@1000 [facility] Last Admin: 03/27/16 11:48 Dose: 20,000 unit Aztreonam 0.5 gm/ Dextrose 50 mls @ 100 mls/hr IVPB Q8H-IV [facility] Last Admin: 03/28/16 10:27 Dose: 100 mls/hr Clindamycin Phosphate 300 mg/ (Dextrose) 50 mls @ 104 mls/hr IVPB Q8H-IV [facility] Last Admin: 03/28/16 10:03 Dose: 104 mls/hr Lactobacillus Acidophilus (Bacid -) 1 tab PO DAILY [facility] Last Admin: 03/28/16 09:59 Dose: 1 tab Pantoprazole Sodium (Protonix -) 40 mg PO DAILY [facility] Last Admin: 03/28/16 10:02 Dose: 40 mg Polyethylene Glycol (Miralax (For Daily Use) -) 17 gm PO DAILY [facility] Last Admin: 03/28/16 10:01 Dose: 17 gm Pregabalin (Lyrica -) 50 mg PO DAILY [facility] Last Admin: 03/28/16 10:01 Dose: 50 mg Silver Sulfadiazine (Silvadene -) 1 applic TP DAILY [facility] Last Admin: 03/28/16 10:04 Dose: 1 applic Sodium Chloride ([place] Nasal [place] -) 2 spray NS BID PRN PRN Reason: NASAL CONGESTION Tiotropium [place] (Spiriva -) 1 puff IH DAILY [facility] Last Admin: 03/28/16 10:03 Dose: 1 puff Zinc Oxide/Panthenol/Vitamin E (Balmex Cream -) 1 applic TP ASDIR PRN PRN Reason: HYGEINE Last Admin: 03/27/16 15:41 Dose: 1 applic A/P 75 year old Gentleman with PMhx of CKD Stage 3 (baseline Cr 1.9), Hx of Nephrolithiasis, Hypertension, COPD, CHF, PVD, Chronic LE lymph edema who was sent into the ED from wound care for increased lethargy and decreased urination for several days with KARLOS with BUN/Cr of 115/7.2 and K of 6.5 #Acute Renal Failure with incomplete recovery now with fluid overload requiring dialysis again for HD tomorrow with UF as tolerated #Anemia Hgb stable continue Procrit #LE edema/Cellulitis Abx as per ID Wound care Compression Improving with UF with HD #Hypernatremia Free water intake as tolerated hold diuretics for now Melvin Johnson DO
--- NOTE | 2016-03-28 15:23 | PN ---
Teaching Attending Note Name of Resident: Zachery Blum ATTENDING PHYSICIAN STATEMENT I saw and evaluated the patient. I reviewed the resident's note and discussed the case with the resident. I agree with the resident's findings and plan as documented. SUBJECTIVE: no fever or chills , SOB has much improved . OBJECTIVE: NAD Cv : RRR Lungs: decreased breath sounds at bases ,no wheezes or crackles ext : 2 + pitting edema , erythema and thick skin with no discharge ASSESSMENT AND PLAN: 75 year-old man with a PMHx of HTN, PVD, COPD, CKD (baseline Cr 1.8), nephrolithiasis, D CHF , CAD s/p stenting in 03/23 and chronic LE lymphedema. presented with SOB and was found to have acute hypercapnic resp failure with acute renal failure . 1- Acute hypercapnic resp failure due to COPD exa , diastolic heart failure and pleural effusions s/p R and L thoracocentesis off steroids cont to hold diuresis due to hypernatremia . HD tomorrow will pkan on assisted HD for him for fluid management 2- Cellultis of LE : improved . 3- KARLOS on CKD: on cacitriol and phoslo HD 4- Normocytic anemia. s/p transfusion. cont to monitor. Transfuse PRN 5- Thrombocytopenia: now with HIT Abx positive. Improved . 6- HTN: cont norvasc 7- CAD : Stenting 03/23 cont asa . aggressive pT , BID , encourage ambulation
--- NOTE | 2016-03-28 15:28 | CONS ---
PHYSICAL MEDICINE REHABILITATION CONSULTATION DATE OF CONSULTATION: 03/28/2016 REFERRING PHYSICIAN: Alejandro Sotomayor M.D. HISTORY OF PRESENT ILLNESS: The patient is a 75-year-old man with an extensive past medical history, including morbid obesity, coronary artery disease, COPD, congestive heart failure, chronic kidney disease, who has been hospitalized for approximately 6 weeks at this point after developing swelling in the lower extremities and shortness of breath. Patient was admitted on February 18, 2016 when he had difficulty urinating. He developed fluid retention, elevated potassium, rmmye-gs-oyhlrkw renal failure, possibly cellulitis of the lower extremities and RSV infection. Patient's medical conditions had vastly improved to stabilize and he is followed by multiple subspecialties, including Pulmonary for COPD, Cardiology for underlying congestive heart failure. He also had thrombocytopenia and has received dialysis for remjn-pa-beucqrq kidney disease. His most recent blood work was slightly elevated. Sodium 148, BUN elevated at 47, creatinine 2.2. CBC shows decreased hemoglobin 8.0, hematocrit 26.8, WBC is 4.8, platelet count has improved to 121,000. Patient was restarted on DVT prophylaxis, Lovenox, and is also noted to be on Lyrica. He denies any peripheral neuropathy. He has been seen by physical therapy, but unable to stand with 2-people assist and is being transferred via a Marine lift. REVIEW OF PAST MEDICAL AND SURGICAL HISTORY: As above. COPD, congestive heart failure, coronary artery disease, wnxrg-sc-rgcktwi kidney disease, morbid obesity, chronic edema, cellulitis of the lower extremities. SOCIAL HISTORY: He had been living with his and ambulating with a straight cane. They live in a house, 12-13 steps to enter. CURRENT FUNCTION: He needs a Marine lift. REVIEW OF SYSTEMS: No lightheadedness, dizziness, no blurry vision, double vision. No nausea, vomiting, difficulty swallowing, difficulty chewing. No chest pain. He does get dyspneic on exertion. No abdominal discomfort. He has a Clifford for urination. Extremities: He denies any numbness, tingling in the lower extremities or any pain. No joint arthralgias. He does have swelling in the lower extremities, but no swelling, numbness, tingling in the upper extremities. No fever or chills. PHYSICAL EXAMINATION: General: On examination, morbidly obese man sitting out of bed in a wheelchair, no acute distress. HEENT: Normocephalic and atraumatic. His extraocular muscles appear intact. Neck: Supple. Extremities: He has edema in the lower extremities. Skin: Not fully able to examine due to Jalen bandages in the lower extremities, but no definite erythema or ecchymosis in the lower extremities. Some ecchymosis in the upper extremities from blood draws and along the upper part of his right side of his chest. Neuromuscular: He is awake, alert, cooperative. Cranial nerves II to XII grossly intact. He has arthritic changes in his hands, but fairly good range of motion and strength in the upper extremities. Normal sensation to pinprick in the upper extremities. He has diminished sensation in the lower extremities to pinprick and only 1-2/5 strength throughout the lower extremities with 1/5 hip girdle strength, 2/5 knee extensors, perhaps 2-3/5 dorsiflexion, but again limited by Jalen bandages. Absent reflexes. OVERALL IMPRESSION: 1. Deficits: Mobility, activities of daily living multifactorial. 2. Deconditioning, status post prolonged bedrest. 3. 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 4. Vracz-yg-zqgpfgo kidney disease on hemodialysis. 5. Congestive heart failure with a history of coronary artery disease. 6. Chronic obstructive pulmonary disease. 7. Urinary retention with Clifford. 8. Thrombocytopenia, resolving. 9. Respiratory syncytial virus infection. 10. Cellulitis of the lower extremities. 11. Anemia. 12. Hyponatremia. 13. Elevated risk for deep vein thrombosis due to immobility. PLAN/SUGGESTIONS: 1. Physical therapy at the bedside mainly for range of motion strengthening of the lower extremities. Perhaps some bed mobility. Doubt he will be able to transfer at this point due to weakness in the lower extremities. 2. Xfn-wn-jol-to-chair with Marine lift, continue. 3. Lovenox for DVT prophylaxis, agree. 4. Skin precautions. 5. Elevation of the lower extremities with Jalen bandages. Rewrap q. shift. 6. Cardiopulmonary precautions. 7. Safety follow-up precaution. 8. Urologic follow up regarding Clifford. 9. Patient will need inpatient rehabilitation snf facility, which may be limited if he will continue to need hemodialysis. I discussed this with the patient and his and should be discussed with Nephrology, as again his short-term rehabilitation will be limited, if he needs to continue to undergo hemodialysis. Thank you for this consultation. ALIX OVIEDO M.D. [id number] cc: Alejandro Sotomayor M.D.
--- NOTE | 2016-03-28 16:27 | PN ---
Progress Note, Physician History of Present Illness: NAD. Oriented and alert. - Current Medication List Current Medications: Active Medications Acetaminophen (Tylenol -) 650 mg PO Q6H PRN PRN Reason: FEVER OR PAIN Last Admin: 03/28/16 15:57 Dose: 650 mg Acetylcysteine (Mucomyst 20 Oral / Inh Use Only*) 200 mg NEB BID [facility] Last Admin: 03/28/16 09:30 Dose: 200 mg Albuterol Sulfate (Ventolin 0.042trength) -) 1 amp NEB Q6H PRN PRN Reason: SHORT OF BREATH/WHEEZING Last Admin: 03/28/16 09:30 Dose: 1 amp Amlodipine Besylate (Norvasc -) 10 mg PO DAILY [facility] Last Admin: 03/28/16 10:01 Dose: 10 mg Arformoterol Tartrate (Brovana (Restricted To Pulmonology/Resp) -) 1 amp NEB BID [facility] Last Admin: 03/28/16 09:32 Dose: Not Given Aspirin (Ecotrin -) 81 mg PO DAILY [facility] Last Admin: 03/28/16 10:00 Dose: 81 mg Calcitriol (Rocaltrol -) 0.25 mcg PO DAILY [facility] Last Admin: 03/28/16 10:27 Dose: 0.25 mcg Calcium Acetate (Phoslo -) 1,334 mg PO TIDCM [facility] Last Admin: 03/28/16 12:13 Dose: 1,334 mg Docusate Sodium (Colace -) 100 mg PO BID [facility] Last Admin: 03/28/16 10:00 Dose: 100 mg Duloxetine HCl (Cymbalta -) 40 mg PO DAILY [facility] Last Admin: 03/28/16 10:00 Dose: 40 mg Enoxaparin Sodium (Lovenox -) 40 mg SQ DAILY [facility] Last Admin: 03/28/16 10:03 Dose: 40 mg Epoetin Keith (Procrit -) 20,000 unit SQ MoWeFr@1000 [facility] Last Admin: 03/27/16 11:48 Dose: 20,000 unit Aztreonam 0.5 gm/ Dextrose 50 mls @ 100 mls/hr IVPB Q8H-IV [facility] Last Admin: 03/28/16 10:27 Dose: 100 mls/hr Clindamycin Phosphate 300 mg/ (Dextrose) 50 mls @ 104 mls/hr IVPB Q8H-IV [facility] Last Admin: 03/28/16 10:03 Dose: 104 mls/hr Lactobacillus Acidophilus (Bacid -) 1 tab PO DAILY [facility] Last Admin: 03/28/16 09:59 Dose: 1 tab Pantoprazole Sodium (Protonix -) 40 mg PO DAILY [facility] Last Admin: 03/28/16 10:02 Dose: 40 mg Polyethylene Glycol (Miralax (For Daily Use) -) 17 gm PO DAILY [facility] Last Admin: 03/28/16 10:01 Dose: 17 gm Pregabalin (Lyrica -) 50 mg PO DAILY [facility] Last Admin: 03/28/16 10:01 Dose: 50 mg Silver Sulfadiazine (Silvadene -) 1 applic TP DAILY [facility] Last Admin: 03/28/16 10:04 Dose: 1 applic Sodium Chloride ([place] Nasal [place] -) 2 spray NS BID PRN PRN Reason: NASAL CONGESTION Tiotropium [place] (Spiriva -) 1 puff IH DAILY [facility] Last Admin: 03/28/16 10:03 Dose: 1 puff Zinc Oxide/Panthenol/Vitamin E (Balmex Cream -) 1 applic TP ASDIR PRN PRN Reason: HYGEINE Last Admin: 03/27/16 15:41 Dose: 1 applic - Objective Vital Signs: Vital Signs Temperature 101.9 F H 03/28/16 15:50 Pulse Rate 83 03/28/16 09:30 Respiratory Rate 18 03/28/16 09:00 Blood Pressure 139/106 03/28/16 09:00 O2 Sat by Pulse Oximetry (%) 91 L 03/28/16 09:30 Constitutional: Yes: No Distress Eyes: No: Sclera Icterus HENT: Yes: Atraumatic, Normocephalic Neck: Yes: Supple, Trachea Midline Cardiovascular: Yes: Regular Rate and Rhythm. No: JVD Respiratory: Yes: Diminished (bilateral) Gastrointestinal: Yes: Soft. No: Tenderness Edema: Yes (lymphedema) Neurological: Yes: Alert, Oriented Labs: CBC, BMP 03/27/16 10:55 03/27/16 10:55 INR, PTT INR 1.16 (0.82-1.09) H 03/20/16 09:20 Fibrinogen 547.0 mg/dL (238-498) H 03/17/16 06:30 Problem List - Problems (1) COPD exacerbation Code(s): J44.1 - CHRONIC OBSTRUCTIVE PULMONARY DISEASE W (ACUTE) EXACERBATION (2) Acute and chronic respiratory failure (birts-yh-bgdbjee) Code(s): J96.20 - ACUTE AND CHR RESP FAILURE, UNSP W HYPOXIA OR HYPERCAPNIA Qualifiers: Qualified Code(s): J96.21 - Acute and chronic respiratory failure with hypoxia (3) Acute kidney failure Code(s): N17.9 - ACUTE KIDNEY FAILURE, UNSPECIFIED Qualifiers: Qualified Code(s): N17.9 - Acute kidney failure, unspecified (4) Chronic kidney disease (CKD) Code(s): N18.9 - CHRONIC KIDNEY DISEASE, UNSPECIFIED Qualifiers: Qualified Code(s): N18.9 - Chronic kidney disease, unspecified (5) Cellulitis Code(s): L03.90 - CELLULITIS, UNSPECIFIED (6) Hyperkalemia Code(s): E87.5 - HYPERKALEMIA (7) Arteriosclerotic heart disease (ASHD) Code(s): I25.10 - ATHSCL HEART DISEASE OF [place] CORONARY ARTERY W/O ANG PCTRS (8) Obesities, morbid Code(s): E66.01 - MORBID (SEVERE) OBESITY DUE TO EXCESS CALORIES Qualifiers: Qualified Code(s): E66.2 - Morbid (severe) obesity with alveolar hypoventilation Assessment/Plan Cellulitis legs: patient on antibiotics COPD Acute on chronic hypercapnic respiratory failure-respiratory status is somewhat improved. Patient has been tapered off Prednisone; he needs to be monitored closely for increased bronchospasm and hypotension now that he is off systemic steroids. CAD; S/P stents; no chest pain or palpitations. CHF/fluid overload: edema is reduced post dialysis. Acute Renal Failure Chronic Renal Insufficiency Dr. Caceres's consult appreciated. Pt is currently unable to bear weight. Bedside PT being started and he will need SNF rehab post discharge (which may be difficult to arrange if he needs exterminator helper termite dialysis). Plan: Inhaled bronchodilator NIPPV PRN Monitor blood counts; transfuse PRN Antibiotics per I.D. Dialysis for fluid removal per renal; monitor for hypotension On Cymbalta for depression.
[2016-03-28] MEDS ORDERED: VANCOMYCIN 1 GRAM (PRE-DOCKED) 250 ML IVPB ONE (17:09)
--- NOTE | 2016-03-28 17:30 | PN ---
Progress Note, Physician History of Present Illness: patient starting to spike temperatures still on nasal cannula says he is not feeling well patients leg feels well - Current Medication List Current Medications: Active Medications Acetaminophen (Tylenol -) 650 mg PO Q6H PRN PRN Reason: FEVER OR PAIN Last Admin: 03/28/16 15:57 Dose: 650 mg Acetylcysteine (Mucomyst 20 Oral / Inh Use Only*) 200 mg NEB BID [facility] Last Admin: 03/28/16 09:30 Dose: 200 mg Albuterol Sulfate (Ventolin 0.042trength) -) 1 amp NEB Q6H PRN PRN Reason: SHORT OF BREATH/WHEEZING Last Admin: 03/28/16 09:30 Dose: 1 amp Amlodipine Besylate (Norvasc -) 10 mg PO DAILY [facility] Last Admin: 03/28/16 10:01 Dose: 10 mg Arformoterol Tartrate (Brovana (Restricted To Pulmonology/Resp) -) 1 amp NEB BID [facility] Last Admin: 03/28/16 09:32 Dose: Not Given Aspirin (Ecotrin -) 81 mg PO DAILY [facility] Last Admin: 03/28/16 10:00 Dose: 81 mg Calcitriol (Rocaltrol -) 0.25 mcg PO DAILY [facility] Last Admin: 03/28/16 10:27 Dose: 0.25 mcg Calcium Acetate (Phoslo -) 1,334 mg PO TIDCM [facility] Last Admin: 03/28/16 12:13 Dose: 1,334 mg Docusate Sodium (Colace -) 100 mg PO BID [facility] Last Admin: 03/28/16 10:00 Dose: 100 mg Duloxetine HCl (Cymbalta -) 40 mg PO DAILY [facility] Last Admin: 03/28/16 10:00 Dose: 40 mg Enoxaparin Sodium (Lovenox -) 40 mg SQ DAILY [facility] Last Admin: 03/28/16 10:03 Dose: 40 mg Epoetin Keith (Procrit -) 20,000 unit SQ MoWeFr@1000 [facility] Last Admin: 03/27/16 11:48 Dose: 20,000 unit Aztreonam 0.5 gm/ Dextrose 50 mls @ 100 mls/hr IVPB Q8H-IV [facility] Last Admin: 03/28/16 10:27 Dose: 100 mls/hr Clindamycin Phosphate 300 mg/ (Dextrose) 50 mls @ 104 mls/hr IVPB Q8H-IV [facility] Last Admin: 03/28/16 10:03 Dose: 104 mls/hr Vancomycin HCl (Vancomycin (Pre-Docked)) 250 mls @ 250 mls/hr IVPB ONCE ONE Stop: 03/28/16 18:08 Lactobacillus Acidophilus (Bacid -) 1 tab PO DAILY [facility] Last Admin: 03/28/16 09:59 Dose: 1 tab Pantoprazole Sodium (Protonix -) 40 mg PO DAILY [facility] Last Admin: 03/28/16 10:02 Dose: 40 mg Polyethylene Glycol (Miralax (For Daily Use) -) 17 gm PO DAILY [facility] Last Admin: 03/28/16 10:01 Dose: 17 gm Pregabalin (Lyrica -) 50 mg PO DAILY [facility] Last Admin: 03/28/16 10:01 Dose: 50 mg Silver Sulfadiazine (Silvadene -) 1 applic TP DAILY [facility] Last Admin: 03/28/16 10:04 Dose: 1 applic Sodium Chloride ([place] Nasal [place] -) 2 spray NS BID PRN PRN Reason: NASAL CONGESTION Tiotropium [place] (Spiriva -) 1 puff IH DAILY [facility] Last Admin: 03/28/16 10:03 Dose: 1 puff Zinc Oxide/Panthenol/Vitamin E (Balmex Cream -) 1 applic TP ASDIR PRN PRN Reason: HYGEINE Last Admin: 03/27/16 15:41 Dose: 1 applic - Objective Vital Signs: Vital Signs Temperature 101.9 F H 03/28/16 15:50 Pulse Rate 83 03/28/16 09:30 Respiratory Rate 18 03/28/16 09:00 Blood Pressure 139/106 03/28/16 09:00 O2 Sat by Pulse Oximetry (%) 91 L 03/28/16 09:30 Constitutional: Yes: Calm, Mild Distress Cardiovascular: Yes: Regular Rate and Rhythm Respiratory: Yes: Poor Air Entry, Rhonchi Gastrointestinal: Yes: Normal Bowel Sounds, Soft Musculoskeletal: Yes: Other Extremities: Yes: Other Neurological: Yes: Alert, Oriented Psychiatric: Yes: Alert Labs: CBC, BMP 03/27/16 10:55 03/27/16 10:55 INR, PTT INR 1.16 (0.82-1.09) H 03/20/16 09:20 Fibrinogen 547.0 mg/dL (238-498) H 03/17/16 06:30 Assessment/Plan 75 year-old man with a PMH of HTN, PVD, COPD, CKD (baseline Cr 1.9), nephrolithiasis, and chronic LE lymphedema. Admitted in acute renal failure. Acute on chronic renal failure Hyperkalemia Sepsis s Hypertension Peripheral vascular disease Hypercarbic respiratory failure COPD bilateral cellulitis of the legs rsv lung infection pleural effusion anemia fevers looking at patients pictures patient is a very high risk candidate for having infection patient has a dialysis catheter and foleys catheter plan cellulitis improving send stat blood cx continue current mgmt send urine cx check xray chest monitor resp status send cx from the dialysis catheter if patient continue to spike might need to remove the catheter
--- NOTE | 2016-03-28 17:46 | HOSP ---
Subjective - Review of Symptoms Events since last encounter: fever 101, did not respond to tylenol now 102 . will send blood cx from periphery and HD catheter . urine cx . cxray . he is not getting coverage for hospital acquired MRSA . will give one dose of vanco and d/w Dr. Szymanski pending cx results . might need to dc clinda and cont vanco and aztreonam Physical Examination Vital Signs: Vital Signs Temperature 102.9 F H 03/28/16 16:25 Pulse Rate 115 H 03/28/16 16:25 Respiratory Rate 18 03/28/16 16:25 Blood Pressure 133/57 03/28/16 16:25 O2 Sat by Pulse Oximetry (%) 91 L 03/28/16 09:30 Labs: CBC, BMP 03/27/16 10:55 03/27/16 10:55
[2016-03-28] MEDS ORDERED: HEPARIN NA (PORCINE) 5,000 UNITS/ML 1ML VIAL SQ SCH (22:00)
[2016-03-29] MEDS ORDERED: PT OWN MED DRAWER 7, Y5N ONE ×2 (01:27→01:28)
[2016-03-29] MEDS: CLINDAMYCIN IVPB 300 MG in DEXTROSE 5%-WATER - 48 ML IVPB SCH ×3 (01:33→21:45)
[2016-03-29] MEDS: AZTREONAM 0.5 GM in DEXTROSE 5%-WATER - 50 ML IVPB SCH ×3 (02:04→18:57)
[2016-03-29] MEDS: ACETAMINOPHEN 325 MG TABLET (FP) PO PRN (02:46)
[2016-03-29 07:41] LABS: LPM/O2% 100%; TYPE OF O2 BIPAP
[2016-03-29 07:42] LABS: ALLENS TEST POSITIVE; ART PUNCT SITE LEFT RADIAL; MECH. VENT. BIPAP; PT. ON O2? YES; VENT RATE 14; VT/PRESS IPAP 18/EPAP 6
[2016-03-29 07:43] LABS: ARTERIAL BLD GAS O2 SATURATION 96.3 % (90-98.9); ARTERIAL BLOOD GAS BASE EXCESS 2.9 meq/l (-2-2); ARTERIAL BLOOD GAS HCO3 30.2 meq/L (22-26)
[2016-03-29 07:44] LABS: ARTERIAL BLOOD GAS pH 7.27 (7.35-7.45)
--- NOTE | 2016-03-29 08:00 | HOSP ---
Subjective - Review of Symptoms Subjective: rapid response was called. Pt was found unresponsive with leg dangling at the bedside. Pt did not respond to verbal stimuli or tactile stimuli. pt was tachypneic 24. Vital signs were taken BP was 130/55, HR 110, Blood sugar 119 Pt was placed on bipap O2 sat 95% Blood gas ordered EKG stat CXR Cardiac profile CBC BNP CMP PT PTT Lactate After further stimulation pt responded with tactile stimuli Pt move all ext No focal weakness NO facial asymmetry or droop Consider CT head w/o contrast [employer] consulted Pt will transfer pt to ICU Physical Examination Vital Signs: Vital Signs Temperature 100.9 F H 03/29/16 06:00 Pulse Rate 109 H 03/29/16 06:00 Respiratory Rate 20 03/29/16 06:00 Blood Pressure 130/60 03/29/16 06:00 O2 Sat by Pulse Oximetry (%) 96 03/29/16 07:46 Labs: CBC, BMP 03/27/16 10:55 03/27/16 10:55 Visit type - Emergency Visit Emergency Visit: Yes ED Registration Date: 02/18/16 Care time: The patient presented to the Emergency Department on the above date and was hospitalized for further evaluation of their emergent condition. - New Patient This patient is new to me today: No - Critical Care Critical Care patient: No
[2016-03-29 08:43] LABS: BASOPHIL 0.2 % (0-2.0); EOSINOPHIL 0.9 % (0-4.5); MCH 26.4 pg (25.7-33.7); MCHC 29.7 g/dl (32.0-35.9); MEAN CELL VOLUME 88.8 fl (80-96); MEAN PLT VOLUME 9.1 fl (7.5-11.1); NEUTROPHILS 84.8 % (42.8-82.8); PLATELET COUNT 218 K/MM3 (134-434); RDW 21.1 % (11.9-15.9); WHITE BLOOD COUNT 11.1 K/mm3 (4.0-10.0)
[2016-03-29 09:04] LABS: TROPONIN I < 0.02 ng/ml (0.00-0.05)
[2016-03-29 09:13] LABS: ALBUMIN 2.1 g/dl (3.4-5.0); BILIRUBIN,TOTAL 0.7 mg/dL (0.2-1.0); CALCIUM 7.6 mg/dL (8.5-10.1); CREATININE 3.3 mg/dL (0.7-1.3); TOT PROT 5.5 g/dl (6.4-8.2)
--- NOTE | 2016-03-29 09:28 | PN ---
Progress Note, Physician Chief Complaint: lethargic, retaining CO2 Febrile, gram + bacteremia, given Vanco yesterday - Current Medication List Current Medications: Active Medications Acetaminophen (Tylenol -) 650 mg PO Q6H PRN PRN Reason: FEVER OR PAIN Last Admin: 03/29/16 02:46 Dose: 650 mg Acetylcysteine (Mucomyst 20 Oral / Inh Use Only*) 200 mg NEB BID [facility] Last Admin: 03/28/16 22:06 Dose: 200 mg Albuterol Sulfate (Ventolin 0.042trength) -) 1 amp NEB Q6H PRN PRN Reason: SHORT OF BREATH/WHEEZING Last Admin: 03/28/16 09:30 Dose: 1 amp Amlodipine Besylate (Norvasc -) 10 mg PO DAILY [facility] Last Admin: 03/28/16 10:01 Dose: 10 mg Arformoterol Tartrate (Brovana (Restricted To Pulmonology/Resp) -) 1 amp NEB BID [facility] Last Admin: 03/28/16 22:06 Dose: 1 amp Aspirin (Ecotrin -) 81 mg PO DAILY [facility] Last Admin: 03/28/16 10:00 Dose: 81 mg Calcitriol (Rocaltrol -) 0.25 mcg PO DAILY [facility] Last Admin: 03/28/16 10:27 Dose: 0.25 mcg Calcium Acetate (Phoslo -) 1,334 mg PO TIDCM [facility] Last Admin: 03/28/16 17:53 Dose: 1,334 mg Docusate Sodium (Colace -) 100 mg PO BID [facility] Last Admin: 03/28/16 21:35 Dose: 100 mg Duloxetine HCl (Cymbalta -) 40 mg PO DAILY [facility] Last Admin: 03/28/16 10:00 Dose: 40 mg Epoetin Keith (Procrit -) 20,000 unit SQ MoWeFr@1000 [facility] Last Admin: 03/27/16 11:48 Dose: 20,000 unit Heparin Sodium (Porcine) (Heparin -) 5,000 unit SQ TID [facility] Aztreonam 0.5 gm/ Dextrose 50 mls @ 100 mls/hr IVPB Q8H-IV [facility] Last Admin: 03/29/16 02:04 Dose: 100 mls/hr Clindamycin Phosphate 300 mg/ (Dextrose) 50 mls @ 104 mls/hr IVPB Q8H-IV [facility] Last Admin: 03/29/16 01:33 Dose: 104 mls/hr Lactobacillus Acidophilus (Bacid -) 1 tab PO DAILY [facility] Last Admin: 03/28/16 09:59 Dose: 1 tab Pantoprazole Sodium (Protonix -) 40 mg PO DAILY [facility] Last Admin: 03/28/16 10:02 Dose: 40 mg Polyethylene Glycol (Miralax (For Daily Use) -) 17 gm PO DAILY [facility] Last Admin: 03/28/16 10:01 Dose: 17 gm Pregabalin (Lyrica -) 50 mg PO DAILY [facility] Last Admin: 03/28/16 10:01 Dose: 50 mg Silver Sulfadiazine (Silvadene -) 1 applic TP DAILY [facility] Last Admin: 03/28/16 10:04 Dose: 1 applic Sodium Chloride ([place] Nasal [place] -) 2 spray NS BID PRN PRN Reason: NASAL CONGESTION Tiotropium [place] (Spiriva -) 1 puff IH DAILY [facility] Last Admin: 03/28/16 10:03 Dose: 1 puff Zinc Oxide/Panthenol/Vitamin E (Balmex Cream -) 1 applic TP ASDIR PRN PRN Reason: HYGEINE Last Admin: 03/27/16 15:41 Dose: 1 applic - Objective Vital Signs: Vital Signs Temperature 100.9 F H 03/29/16 06:00 Pulse Rate 109 H 03/29/16 06:00 Respiratory Rate 20 03/29/16 06:00 Blood Pressure 130/60 03/29/16 06:00 O2 Sat by Pulse Oximetry (%) 96 03/29/16 07:46 Constitutional: Yes: Other (lethargic, but opens eyes to name) Respiratory: Yes: Other (decreased breath sounds bilaterally) Gastrointestinal: Yes: Soft, Abdomen, Obese Edema: Yes Edema: LLE: 2+, RLE: 2+ Labs: CBC, BMP 03/29/16 07:37 03/29/16 07:37 INR, PTT INR 1.16 (0.82-1.09) H 03/20/16 09:20 Fibrinogen 547.0 mg/dL (238-498) H 03/17/16 06:30 Laboratory Tests 03/29/16 03/29/16 03/29/16 07:37 07:37 07:37 WBC 11.1 H D Hgb 9.1 L D Plt Count 218 D ABG pH 7.27 L ABG pCO2 at Pt Temp 67.3 H* D ABG pO2 at Pt Temp 88.0 Oxygen Flow Rate 100% Potassium 4.9 D Creatinine 3.3 H D Assessment/Plan IMP: Acute on chronic hypercarbic respiratory failure Chronic COPD Sepsis, gram + Bacteremia ESRD CAD REC: 1. Resp. failure: -NIPPV for now, discussed w/ critical care. -Transfer to ICU -May need intubation 2. Sepsis: -gram + bacteremia -Vanco -Follow cultures -ID evaluation 3. CAD: -PCI approximately one year ago -Back on ASA 81 after interval of thrombocytopenia earlier in admission 4. ESRD: -HD as per renal Attempted to call to update condition on both numbers in chart-- no answer.
--- NOTE | 2016-03-29 09:46 | PN ---
[id number] was called for unresponsiveness and drowsiness earlier this morning OBJECTIVE: Vital Signs Period Temp Pulse Resp BP Sys/[place] Pulse Ox Last 24 Hr 99.6 F-102.9 F 88-115 18-20 120-133/57-62 91-96 ENERAL: The patient is sleepy, in moderate resp distress. HEAD: Normal with no signs of trauma. EYES: PERRL, extraocular movements intact, sclera anicteric, conjunctiva clear. No ptosis. ENT: Ears normal, nares patent, oropharynx clear without exudates, dry mucous membranes. NECK: Trachea midline, full range of motion, supple. LUNGS: db/l wheezes/ronchi , reduced b/l crackles in lung bases HEART: tachycardic, Regular rate and rhythm, S1, S2 without murmur, rub or gallop. ABDOMEN: Soft, nontender, nondistended, normoactive bowel sounds, no guarding, no rebound, no hepatosplenomegaly, no masses. EXTREMITIES: 2+ pulses, warm, well-perfused. b/l lower ext edema 2+ with mild redness, improving NEUROLOGICAL: gait not observed. Strength 5/5 in all ext PSYCH: Normal mood, normal affect. SKIN: Warm, dry, wringled skin in b/l lower ext,edema 2+ and erythema in b/l lower ext from feet to knees improving Laboratory Results - last 24 hr 03/28/16 03/29/16 03/29/16 16:15 07:29 07:37 WBC RBC Hgb Hct MCV MCHC RDW Plt Count MPV Neutrophils % Lymphocytes % Monocytes % Eosinophils % Basophils % Anticoagulation Therapy Puncture Site ABG pH ABG pCO2 at Pt Temp ABG pO2 at Pt Temp ABG HCO3 ABG O2 Sat (Measured) ABG O2 Content ABG Base Excess Issac Test O2 Delivery Device Oxygen Flow Rate Vent Mode Vent Rate Mechanical Rate PEEP Pressure Support Vent Sodium Potassium Chloride Carbon Dioxide Anion Gap BUN Creatinine Creat Clearance w eGFR POC Glucometer 119 Random Glucose Lactic Acid 1.298 2.712 H* Calcium Total Bilirubin AST ALT Alkaline Phosphatase Creatine Kinase Troponin I B-Natriuretic Peptide Total Protein Albumin 03/29/16 03/29/16 03/29/16 07:37 07:37 07:37 WBC 11.1 H D RBC 3.44 L Hgb 9.1 L D Hct 30.5 L MCV 88.8 MCHC 29.7 L RDW 21.1 H Plt Count 218 D MPV 9.1 Neutrophils % 84.8 H Lymphocytes % 7.3 L D Monocytes % 6.8 Eosinophils % 0.9 Basophils % 0.2 Anticoagulation Therapy Y Puncture Site Left radial ABG pH 7.27 L ABG pCO2 at Pt Temp 67.3 H* D ABG pO2 at Pt Temp 88.0 ABG HCO3 30.2 H ABG O2 Sat (Measured) 96.3 ABG O2 Content 11.6 L ABG Base Excess 2.9 H Issac Test Positive O2 Delivery Device Bipap Oxygen Flow Rate 100% Vent Mode S/t Vent Rate 14 Mechanical Rate Bipap PEEP 0.0 Pressure Support Vent Ipap 18/epap 6 Sodium 140 Potassium 4.9 D Chloride 107 Carbon Dioxide 32 Anion Gap 1 L BUN 43 H Creatinine 3.3 H D Creat Clearance w eGFR 18.47 POC Glucometer Random Glucose 93 Lactic Acid Calcium 7.6 L Total Bilirubin 0.7 D AST 14 L ALT 12 Alkaline Phosphatase 119 H Creatine Kinase Troponin I B-Natriuretic Peptide 71883.96 H Total Protein 5.5 L Albumin 2.1 L 03/29/16 07:37 WBC RBC Hgb Hct MCV MCHC RDW Plt Count MPV Neutrophils % Lymphocytes % Monocytes % Eosinophils % Basophils % Anticoagulation Therapy Puncture Site ABG pH ABG pCO2 at Pt Temp ABG pO2 at Pt Temp ABG HCO3 ABG O2 Sat (Measured) ABG O2 Content ABG Base Excess Issac Test O2 Delivery Device Oxygen Flow Rate Vent Mode Vent Rate Mechanical Rate PEEP Pressure Support Vent Sodium Potassium Chloride Carbon Dioxide Anion Gap BUN Creatinine Creat Clearance w eGFR POC Glucometer Random Glucose Lactic Acid Calcium Total Bilirubin AST ALT Alkaline Phosphatase Creatine Kinase 20 L Troponin I < 0.02 B-Natriuretic Peptide Total Protein Albumin Active Medications Generic Name Dose Route Start Last Admin Trade Name Freq PRN Reason Stop Dose Admin Acetaminophen 650 mg 03/22/16 16:39 03/29/16 02:46 Tylenol - PO 650 mg Q6H PRN Administration FEVER OR PAIN Acetylcysteine 200 mg 03/22/16 22:00 03/28/16 22:06 Mucomyst 20 Oral / Inh Use Only* NEB 200 mg BID LESLEE Administration Albuterol Sulfate 1 amp 03/27/16 10:48 03/28/16 09:30 Ventolin 0.042trength) - NEB 1 amp Q6H PRN Administration SHORT OF BREATH/WHEEZING Amlodipine Besylate 10 mg 03/23/16 10:00 03/28/16 10:01 Norvasc - PO 10 mg DAILY LESLEE Administration Arformoterol Tartrate 1 amp 03/27/16 11:00 03/28/16 22:06 Brovana (Restricted To Pulmonology/Resp) - NEB 1 amp BID LESLEE Administration Aspirin 81 mg 03/28/16 10:00 03/28/16 10:00 Ecotrin - PO 81 mg DAILY LESLEE Administration Calcitriol 0.25 mcg 03/23/16 10:00 03/28/16 10:27 Rocaltrol - PO 0.25 mcg DAILY LESLEE Administration Calcium Acetate 1,334 mg 03/22/16 17:30 03/28/16 17:53 Phoslo - PO 1,334 mg TIDCM LESLEE Administration Docusate Sodium 100 mg 03/27/16 22:00 03/28/16 21:35 Colace - PO 100 mg BID LESLEE Administration Duloxetine HCl 40 mg 03/26/16 10:00 03/28/16 10:00 Cymbalta - PO 40 mg DAILY LESLEE Administration Epoetin Keith 20,000 unit 03/24/16 10:00 03/27/16 11:48 Procrit - SQ 20,000 unit MoWeFr@1000 LESLEE Administration Heparin Sodium (Porcine) 5,000 unit 03/29/16 10:00 Heparin - SQ TID [facility]E Aztreonam 0.5 gm/ Dextrose 50 mls @ 100 mls/hr 03/22/16 18:00 03/29/16 02:04 IVPB 100 mls/hr Q8H-IV LESLEE Administration Clindamycin Phosphate 300 mg/ 50 mls @ 104 mls/hr 03/22/16 18:00 03/29/16 01:33 Dextrose IVPB 104 mls/hr Q8H-IV LESLEE Administration Vancomycin HCl 1,250 mg/ 250 mls @ 250 mls/hr 03/29/16 09:43 Dextrose IVPB 03/29/16 10:42 ONCE ONE Lactobacillus Acidophilus 1 tab 03/23/16 10:00 03/28/16 09:59 Bacid - PO 1 tab DAILY LES[facility]E Administration Pantoprazole Sodium 40 mg 03/23/16 10:00 03/28/16 10:02 Protonix - PO 40 mg DAILY LES[facility]E Administration Polyethylene Glycol 17 gm 03/23/16 10:00 03/28/16 10:01 Miralax (For Daily Use) - PO 17 gm DAILY L[facility]E Administration Pregabalin 50 mg 03/23/16 10:00 03/28/16 10:01 Lyrica - PO 50 mg DAILY LESLEE Administration Silver Sulfadiazine 1 applic 03/23/16 10:00 03/28/16 10:04 Silvadene - TP 1 applic DAILY LESLEE Administration Sodium Chloride 2 spray 03/22/16 16:39 [place] Nasal [place] - NS BID PRN NASAL CONGESTION Tiotropium Colt 1 puff 03/23/16 10:00 03/28/16 10:03 Spiriva - IH 1 puff DAILY LESLEE Administration Zinc Oxide/Panthenol/Vitamin E 1 applic 03/22/16 16:39 03/27/16 15:41 Balmex Cream - TP 1 applic ASDIR PRN Administration HYGEINE CBC, BMP 03/29/16 07:37 03/29/16 07:37 ABG Results ABG pH 7.27 (7.35-7.45) L 03/29/16 07:37 ABG pCO2 at Pt Temp 67.3 mmHg (35-45) H* D 03/29/16 07:37 ABG pO2 at Pt Temp 88.0 mmHg (70-100) 03/29/16 07:37 ABG HCO3 30.2 meq/L (22-26) H 03/29/16 07:37 ABG O2 Sat (Measured) 96.3 % (90-98.9) 03/29/16 07:37 ABG O2 Content 11.6 % vol (15-22) L 03/29/16 07:37 ABG Base Excess 2.9 meq/l (-2-2) H 03/29/16 07:37 Microbiology 03/28/16 17:45 Blood - Tawanda Cath Blood Culture - Preliminary Pending Organism 03/28/16 16:30 Blood - Peripheral Venous Blood Culture - Preliminary Pending Organism 03/28/16 16:30 Blood - Peripheral Venous Blood Culture - Preliminary Pending Organism Laboratory Tests 03/29/16 03/29/16 03/29/16 07:37 07:37 07:37 Neutrophils % 84.8 H Lactic Acid 2.712 H* AST 14 L ALT 12 Alkaline Phosphatase 119 H Creatine Kinase Troponin I B-Natriuretic Peptide 18955.96 H Total Protein 5.5 L Albumin 2.1 L 03/29/16 07:37 Neutrophils % Lactic Acid AST ALT Alkaline Phosphatase Creatine Kinase 20 L Troponin I < 0.02 B-Natriuretic Peptide Total Protein Albumin ASSESSMENT/PLAN: 75 year old male with pmh of COPD, PVD, Chronic lower ext lymphadema, CAD with stent, CHF, CKD with baseline creatinine of 1.9, nephrolithiasis presented to the ED with complaint of shortness of breath and cellulitis, patient was fount to have acute hypercapneic respiratory failure and acute renal failure. Yesterday pt started developing fever, chills and rigors, tachycardia, now pt is weak, sleepy, with fever, tachycardia, tachypnea and hypotension. Severe Sepsis from b/l lower ext cellulitis or dialysis access Pt has tachycardia, hypotension, fever, rigors, elevated lactic acid, increasing white and positive blood culture with gram positive cocci in clusters 1m gram of vanco given yesterday 1250 gm ordered for today F/u blood culture f/u urine culture Improving erythema, now more pink. Also less swelling in lower ext due to dialysis Continue Aztreonam 0.5gm q8h IV Continue clindamycin 300mg q8h IV Dr Armijo consulted Acute hypercapneic respiratory failure with respitatory acidosis rt to COPD exacerbation and diastolic heart failure and pleural effusion Continue BIPAP Repeat ABG now Continue bronchodilators Receiving dialysis today for volume overload resistant to diuretics Has responded well to dialysis s/p Thoracentesis 03/21/16 and 03/07/16 Acute on Chronic kidney Injury Pt is receiving dialysis Continue to monitor BUN and Cr Monitor intake and output Continue Phoslo Continue Calcitriol Normocytic anemia likely due to chronic disease and renal disease Continue to monitor CBC daily Current Hgb 9.1, PRN transfusion if Hbg less than 7 of if rapid drop and massive bleeding fecal occult blood positive, pt to follow up with GI once stable Thrombocytopenia Pt had normal platelet on admission, plt went as low as 42, now has recovered Currently Plt 218 Continue to trend plt level No platelet transfusion needed right now Pt has HIT antibody positive, serotonin release essay is still pending 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 Hypertension Currently controlled on Norvasc Continue current dose of Norvasc Vitals Q4h Coronary artery disease s/p stenting on 03/2015 pt is on aspirin Po Constipation Pt is on Colace 100mg Po BID, will change from PRN to scheduled Pt is on miralax daily FEN Fluid: none Electrolytes: continue to monitor Nutrition: Diabetic low sodium diet Dvt prophylaxis: On lovenox Disposition: transfer to ICU Visit type - Emergency Visit Emergency Visit: Yes ED Registration Date: 02/18/16 Care time: The patient presented to the Emergency Department on the above date and was hospitalized for further evaluation of their emergent condition. - New Patient This patient is new to me today: No - Critical Care Critical Care patient: No
[2016-03-29] MEDS: PROPOFOL 100 ML IVPB SCH ×2 (10:15→19:01)
[2016-03-29] MEDS: ARFORMOTEROL TARTRATE 15 MCG/2 ML VIAL NEB SCH (11:00)
[2016-03-29] MEDS: ACETYLCYSTEINE 20% 200MG/ML 4 ML VIAL *FOR ORAL / INH USE ONLY NEB SCH ×2 (11:00→22:05)
[2016-03-29] MEDS: HEPARIN NA (PORCINE) 5,000 UNITS/ML 1ML VIAL SQ SCH ×3 (11:00→21:38)
--- NOTE | 2016-03-29 11:12 | PROC ---
<Lambert Ventura - Last Filed: 03/29/16 11:10> Intubation - Intubation Reason for Intubation: Respiratory Failure Time of Intubation: 10:00 Intubation Method: orotracheal Blade used: Glidescope Tube Size (cm): 8.0 Tube position @ lip (cm): 22 Tube position confirmed by: Chest x-ray, Breath sounds Breath Sounds after Intubation: equal Post Intubation Xray: Yes <Xavier Conway MD - Last Filed: 03/29/16 12:22> Procedure Note Procedure: ATTENDING PHYSICIAN STATEMENT I supervised and was present during the entire procedure Xavier Conway MD
--- NOTE | 2016-03-29 11:15 | EKG ---
Test Reason : Blood Pressure : / mmHG Vent. Rate : 087 BPM Atrial Rate : 087 BPM P-R Int : 190 ms QRS Dur : 142 ms QT Int : 396 ms P-R-T Axes : 057 049 045 degrees QTc Int : 476 ms NORMAL SINUS RHYTHM RIGHT BUNDLE BRANCH BLOCK ABNORMAL ECG WHEN COMPARED WITH ECG OF 29-FEB-2016 12:37, SINUS RHYTHM HAS REPLACED ATRIAL FIBRILLATION Confirmed by JASVIR ALLEN, GLENN ([id number]) on 03/29/2016 11:15:17 AM Referred By: EVA MILLS Overread By: GLENN TAY MD
[2016-03-29] MEDS: SILVER SULFADIAZINE 1% TOP CREAM 50 GM JAR TP SCH (12:12)
[2016-03-29 12:25] LABS: ALLENS TEST POSITIVE; ART PUNCT SITE RIGHT RADIAL; ARTERIAL BLD GAS O2 SATURATION 89.9 % (90-98.9); ARTERIAL BLOOD GAS BASE EXCESS 5.7 meq/l (-2-2); ARTERIAL BLOOD GAS HCO3 31.4 meq/L (22-26); ARTERIAL BLOOD GAS pH 7.36 (7.35-7.45)
[2016-03-29] MEDS: VANCOMYCIN 1,250 MG in DEXTROSE 5%-WATER - 250 ML IVPB ONE ×2 (12:25→16:30)
[2016-03-29 12:26] LABS: LPM/O2% 40%; MECH. VENT. YES; PT. ON O2? YES; TYPE OF O2 MEC.VENT; VENT RATE 10; VT/PRESS 400
[2016-03-29] MEDS: EPOETIN ALFA 20,000 UNIT/1 ML VIAL SQ SCH (12:26)
[2016-03-29 12:27] LABS: ARTERIAL BLOOD GAS PO2 55.8 mmHg (70-100)
--- NOTE | 2016-03-29 12:30 | PN ---
Teaching Attending Note Name of Resident: Ildefonso Broussard ATTENDING PHYSICIAN STATEMENT I saw and evaluated the patient. I reviewed the resident's note and discussed the case with the resident. I agree with the resident's findings and plan as documented. SUBJECTIVE: Pt seen and examined in the ICU. Transferred down for hypotension, fevers and altered mental status. Pt minimally responsive to noxious stimuli, subsequently intubated with copious secretions. Purulent drainage noted from permacath site. OBJECTIVE: Last Vital Signs Temp Pulse Resp BP Pulse Ox 100.9 F H 109 H 11 L 130/60 100 03/29/16 06:00 03/29/16 06:00 03/29/16 10:30 03/29/16 06:00 03/29/16 10:30 Intake & Output 03/26/16 03/27/16 03/28/16 03/29/16 23:59 23:59 23:59 23:59 Intake Total 1000 100 600 Output Total 2400 600 675 100 Balance -1400 -500 -75 -100 Gen: now intubated, lethargic Heart: tachycardic, regular Lung: bilateral rhonchi, wheezes Abd: soft, nontender, obese Ext: trace edema, chronic changes CBC, BMP 03/29/16 07:37 03/29/16 07:37 Active Medications Acetaminophen (Tylenol -) 650 mg PO Q6H PRN PRN Reason: FEVER OR PAIN Last Admin: 03/29/16 02:46 Dose: 650 mg Acetylcysteine (Mucomyst 20 Oral / Inh Use Only*) 200 mg NEB BID [facility] Last Admin: 03/28/16 22:06 Dose: 200 mg Albuterol Sulfate (Ventolin 0.042trength) -) 1 amp NEB Q6H PRN PRN Reason: SHORT OF BREATH/WHEEZING Last Admin: 03/28/16 09:30 Dose: 1 amp Amlodipine Besylate (Norvasc -) 10 mg PO DAILY [facility] Last Admin: 03/28/16 10:01 Dose: 10 mg Arformoterol Tartrate (Brovana (Restricted To Pulmonology/Resp) -) 1 amp NEB BID [facility] Last Admin: 03/28/16 22:06 Dose: 1 amp Aspirin (Ecotrin -) 81 mg PO DAILY [facility] Last Admin: 03/28/16 10:00 Dose: 81 mg Calcitriol (Rocaltrol -) 0.25 mcg PO DAILY [facility] Last Admin: 03/28/16 10:27 Dose: 0.25 mcg Calcium Acetate (Phoslo -) 1,334 mg PO TIDCM [facility] Last Admin: 03/28/16 17:53 Dose: 1,334 mg Docusate Sodium (Colace -) 100 mg PO BID [facility] Last Admin: 03/28/16 21:35 Dose: 100 mg Duloxetine HCl (Cymbalta -) 40 mg PO DAILY [facility] Last Admin: 03/28/16 10:00 Dose: 40 mg Epoetin Keith (Procrit -) 20,000 unit SQ MoWeFr@1000 [facility] Last Admin: 03/27/16 11:48 Dose: 20,000 unit Heparin Sodium (Porcine) (Heparin -) 5,000 unit SQ TID [facility] Aztreonam 0.5 gm/ Dextrose 50 mls @ 100 mls/hr IVPB Q8H-IV [facility] Last Admin: 03/29/16 02:04 Dose: 100 mls/hr Clindamycin Phosphate 300 mg/ (Dextrose) 50 mls @ 104 mls/hr IVPB Q8H-IV [facility] Last Admin: 03/29/16 01:33 Dose: 104 mls/hr Propofol (Diprivan -) 100 mls @ 4.315 mls/hr IVPB TITR LESLEE; 5 MCG/KG/MIN PRN Reason: Protocol Lactobacillus Acidophilus (Bacid -) 1 tab PO DAILY [facility] Last Admin: 03/28/16 09:59 Dose: 1 tab Pantoprazole Sodium (Protonix -) 40 mg PO DAILY [facility] Last Admin: 03/28/16 10:02 Dose: 40 mg Polyethylene Glycol (Miralax (For Daily Use) -) 17 gm PO DAILY [facility] Last Admin: 03/28/16 10:01 Dose: 17 gm Pregabalin (Lyrica -) 50 mg PO DAILY [facility] Last Admin: 03/28/16 10:01 Dose: 50 mg Silver Sulfadiazine (Silvadene -) 1 applic TP DAILY [facility] Last Admin: 03/29/16 12:12 Dose: 1 applic Sodium Chloride ([place] Nasal [place] -) 2 spray NS BID PRN PRN Reason: NASAL CONGESTION Tiotropium [place] (Spiriva -) 1 puff IH DAILY [facility] Last Admin: 03/28/16 10:03 Dose: 1 puff Zinc Oxide/Panthenol/Vitamin E (Balmex Cream -) 1 applic TP ASDIR PRN PRN Reason: HYGEINE Last Admin: 03/27/16 15:41 Dose: 1 applic ASSESSMENT AND PLAN: Acute on Chronic Hypercapneic and Hypoxic Respiratory Failure Likely Permacath Infection Severe Sepsis Acute on Chronic Renal Failure requiring HD Acute COPD Exacerbation Lactic Acidosis Acute on Chronic LV Diastolic Heart Failure CAD Morbid Obesity JOY/OHS - pt intubated, monitor ABG - start IV medrol 60mg q8h - inhaled bronchodilators standing and PRN - continue vanco by level - trend lactate - f/u cultures, sent permacath swab - may need to d/c permacath - HD per renal - monitor urine output, creatinine - DVT/GI prophylaxis
[2016-03-29] MEDS: CALCITRIOL 0.25 MCG CAPSULE (FP) PO SCH (12:31)
[2016-03-29] MEDS: CALCIUM ACETATE 667 MG CAPSULE (FP) PO SCH ×2 (12:31→18:00)
[2016-03-29] MEDS: PANTOPRAZOLE 40 MG TABLET (FP) PO SCH (12:31)
--- NOTE | 2016-03-29 12:31 | PN ---
Progress Note, Physician History of Present Illness: Pt became poorly responsive and was intubated and transferred to ICU. - Current Medication List Current Medications: Active Medications Acetaminophen (Tylenol -) 650 mg PO Q6H PRN PRN Reason: FEVER OR PAIN Last Admin: 03/29/16 02:46 Dose: 650 mg Acetylcysteine (Mucomyst 20 Oral / Inh Use Only*) 200 mg NEB BID [facility] Last Admin: 03/28/16 22:06 Dose: 200 mg Albuterol Sulfate (Ventolin 0.042trength) -) 1 amp NEB Q6H PRN PRN Reason: SHORT OF BREATH/WHEEZING Last Admin: 03/28/16 09:30 Dose: 1 amp Amlodipine Besylate (Norvasc -) 10 mg PO DAILY [facility] Last Admin: 03/28/16 10:01 Dose: 10 mg Arformoterol Tartrate (Brovana (Restricted To Pulmonology/Resp) -) 1 amp NEB BID [facility] Last Admin: 03/28/16 22:06 Dose: 1 amp Aspirin (Ecotrin -) 81 mg PO DAILY [facility] Last Admin: 03/28/16 10:00 Dose: 81 mg Calcitriol (Rocaltrol -) 0.25 mcg PO DAILY [facility] Last Admin: 03/28/16 10:27 Dose: 0.25 mcg Calcium Acetate (Phoslo -) 1,334 mg PO TIDCM [facility] Last Admin: 03/28/16 17:53 Dose: 1,334 mg Docusate Sodium (Colace -) 100 mg PO BID [facility] Last Admin: 03/28/16 21:35 Dose: 100 mg Duloxetine HCl (Cymbalta -) 40 mg PO DAILY [facility] Last Admin: 03/28/16 10:00 Dose: 40 mg Epoetin Keith (Procrit -) 20,000 unit SQ MoWeFr@1000 [facility] Last Admin: 03/27/16 11:48 Dose: 20,000 unit Heparin Sodium (Porcine) (Heparin -) 5,000 unit SQ TID [facility] Aztreonam 0.5 gm/ Dextrose 50 mls @ 100 mls/hr IVPB Q8H-IV [facility] Last Admin: 03/29/16 02:04 Dose: 100 mls/hr Clindamycin Phosphate 300 mg/ (Dextrose) 50 mls @ 104 mls/hr IVPB Q8H-IV [facility] Last Admin: 03/29/16 01:33 Dose: 104 mls/hr Propofol (Diprivan -) 100 mls @ 4.315 mls/hr IVPB TITR LESLEE; 5 MCG/KG/MIN PRN Reason: Protocol Lactobacillus Acidophilus (Bacid -) 1 tab PO DAILY [facility] Last Admin: 03/28/16 09:59 Dose: 1 tab Pantoprazole Sodium (Protonix -) 40 mg PO DAILY [facility] Last Admin: 03/28/16 10:02 Dose: 40 mg Polyethylene Glycol (Miralax (For Daily Use) -) 17 gm PO DAILY [facility] Last Admin: 03/28/16 10:01 Dose: 17 gm Pregabalin (Lyrica -) 50 mg PO DAILY [facility] Last Admin: 03/28/16 10:01 Dose: 50 mg Silver Sulfadiazine (Silvadene -) 1 applic TP DAILY [facility] Last Admin: 03/29/16 12:12 Dose: 1 applic Sodium Chloride ([place] Nasal [place] -) 2 spray NS BID PRN PRN Reason: NASAL CONGESTION Tiotropium [place] (Spiriva -) 1 puff IH DAILY [facility] Last Admin: 03/28/16 10:03 Dose: 1 puff Zinc Oxide/Panthenol/Vitamin E (Balmex Cream -) 1 applic TP ASDIR PRN PRN Reason: HYGEINE Last Admin: 03/27/16 15:41 Dose: 1 applic - Objective Vital Signs: Vital Signs Temperature 100.9 F H 03/29/16 06:00 Pulse Rate 109 H 03/29/16 06:00 Respiratory Rate 11 L 03/29/16 10:30 Blood Pressure 130/60 03/29/16 06:00 O2 Sat by Pulse Oximetry (%) 100 03/29/16 10:30 Constitutional: Yes: Other (sedated on respirator) Eyes: No: Sclera Icterus HENT: Yes: Atraumatic, Normocephalic Neck: Yes: Supple, Trachea Midline Cardiovascular: Yes: Regular Rate and Rhythm. No: JVD Respiratory: Yes: Diminished (bilateral) Gastrointestinal: Yes: Soft. No: Hepatomegaly, Splenomegaly, Tenderness Edema: LLE: Trace, RLE: Trace Neurological: Yes: Other (sedated) Labs: CBC, BMP 03/29/16 07:37 03/29/16 07:37 INR, PTT INR 1.16 (0.82-1.09) H 03/20/16 09:20 Fibrinogen 547.0 mg/dL (238-498) H 03/17/16 06:30 Blood cultures and permacath site culture positve:id organism and sensitivites pending - ....Imaging Chest X-ray: Report Reviewed, Image Reviewed (bilateral effusions) Problem List - Problems (1) COPD exacerbation Code(s): J44.1 - CHRONIC OBSTRUCTIVE PULMONARY DISEASE W (ACUTE) EXACERBATION (2) Acute and chronic respiratory failure ([id number]) Code(s): J96.20 - ACUTE AND CHR RESP FAILURE, UNSP W HYPOXIA OR HYPERCAPNIA Qualifiers: Qualified Code(s): J96.21 - Acute and chronic respiratory failure with hypoxia (3) Acute kidney failure Code(s): N17.9 - ACUTE KIDNEY FAILURE, UNSPECIFIED Qualifiers: Qualified Code(s): N17.9 - Acute kidney failure, unspecified (4) Chronic kidney disease (CKD) Code(s): N18.9 - CHRONIC KIDNEY DISEASE, UNSPECIFIED Qualifiers: Qualified Code(s): N18.9 - Chronic kidney disease, unspecified (5) Cellulitis Code(s): L03.90 - CELLULITIS, UNSPECIFIED (6) Hyperkalemia Code(s): E87.5 - HYPERKALEMIA (7) Arteriosclerotic heart disease (ASHD) Code(s): I25.10 - ATHSCL HEART DISEASE OF [place] CORONARY ARTERY W/O ANG PCTRS (8) Obesities, morbid Code(s): E66.01 - MORBID (SEVERE) OBESITY DUE TO EXCESS CALORIES Qualifiers: Qualified Code(s): E66.2 - Morbid (severe) obesity with alveolar hypoventilation Assessment/Plan Acute on Chronic Respiratory failure: patient intubated [place] COPD Exacerbation Morbid Obesity Acute and Chronic Renal Failure ASHD CHF Plan: ICU Respirator support Antibiotics; adjust depending on results of cultures and sensitivities Inhaled bronchodilator IV steroids Dialysis when vital signs stable I discussed patient's case with his in detail
[2016-03-29] MEDS: POLYETHYLENE GLYCOL 3350 119 GM BTL PO SCH (12:32)
[2016-03-29] MEDS: amLODIPine BESYLATE 10 MG TABLET (FP) PO SCH (12:32)
[2016-03-29] MEDS: ASPIRIN COATED 81 MG TABLET.EC PO SCH (12:35)
[2016-03-29] MEDS: DOCUSATE SODIUM 100 MG CAPSULE (FP) PO SCH ×2 (12:35→21:38)
[2016-03-29] MEDS: DULoxetine HCL 20 MG CAPSULE.DR (FP) PO SCH (12:35)
[2016-03-29] MEDS: PREGABALIN 50 MG CAPSULE PO SCH (12:35)
[2016-03-29] MEDS: LACTOBACILLUS ACIDOPHILUS 1 EACH TAB (FP) PO SCH (12:36)
--- NOTE | 2016-03-29 12:42 | PN ---
Progress Note (short form) - Note Progress Note: Renal Follow up for KARLOS Pt seen and examined in the ICU s/p SQUARE CUTTER this am for AMS and Resp Distress found to have hypercarbic/hypoxic resp failure s/p intubation currently sedated on the Vent Vital Signs Temperature 100.9 F H 03/29/16 06:00 Pulse Rate 97 H 03/29/16 07:35 Respiratory Rate 11 L 03/29/16 10:30 Blood Pressure 130/55 03/29/16 07:35 O2 Sat by Pulse Oximetry (%) 100 03/29/16 10:30 Intake & Output 03/26/16 03/27/16 03/28/16 03/29/16 23:59 23:59 23:59 23:59 Intake Total 1000 100 600 Output Total 2400 600 675 100 Balance -1400 -500 -75 -100 Gen: NAD CVS: RRR No M/R Lungs: dec BS throughout the lung rey Abd: Soft NT + Mild distension Ext: 2+ edema, legs in dressing CBC, BMP 03/29/16 07:37 03/29/16 07:37 Current Medications Acetaminophen (Tylenol -) 650 mg PO Q6H PRN PRN Reason: FEVER OR PAIN Last Admin: 03/29/16 02:46 Dose: 650 mg Acetylcysteine (Mucomyst 20 Oral / Inh Use Only*) 200 mg NEB BID [facility] Last Admin: 03/28/16 22:06 Dose: 200 mg Albuterol Sulfate (Ventolin 0.042trength) -) 1 amp NEB Q6H PRN PRN Reason: SHORT OF BREATH/WHEEZING Last Admin: 03/28/16 09:30 Dose: 1 amp Amlodipine Besylate (Norvasc -) 10 mg PO DAILY [facility] Last Admin: 03/29/16 12:32 Dose: Not Given Arformoterol Tartrate (Brovana (Restricted To Pulmonology/Resp) -) 1 amp NEB BID [facility] Last Admin: 03/28/16 22:06 Dose: 1 amp Aspirin (Ecotrin -) 81 mg PO DAILY [facility] Last Admin: 03/29/16 12:35 Dose: Not Given Calcitriol (Rocaltrol -) 0.25 mcg PO DAILY [facility] Last Admin: 03/29/16 12:31 Dose: Not Given Calcium Acetate (Phoslo -) 1,334 mg PO TIDCM [facility] Last Admin: 03/29/16 12:31 Dose: Not Given Docusate Sodium (Colace -) 100 mg PO BID [facility] Last Admin: 03/29/16 12:35 Dose: Not Given Duloxetine HCl (Cymbalta -) 40 mg PO DAILY [facility] Last Admin: 03/29/16 12:35 Dose: Not Given Epoetin Keith (Procrit -) 20,000 unit SQ [id number]@1000 [facility] Last Admin: 03/29/16 12:26 Dose: Not Given Heparin Sodium (Porcine) (Heparin -) 5,000 unit SQ TID [facility] Last Admin: 03/29/16 11:00 Dose: 5,000 unit Aztreonam 0.5 gm/ Dextrose 50 mls @ 100 mls/hr IVPB Q8H-IV [facility] Last Admin: 03/29/16 12:24 Dose: 100 mls/hr Clindamycin Phosphate 300 mg/ (Dextrose) 50 mls @ 104 mls/hr IVPB Q8H-IV [facility] Last Admin: 03/29/16 01:33 Dose: 104 mls/hr Propofol (Diprivan -) 100 mls @ 4.315 mls/hr IVPB TITR LESLEE; 5 MCG/KG/MIN PRN Reason: Protocol Last Admin: 03/29/16 10:15 Dose: 4.315 mls/hr Lactobacillus Acidophilus (Bacid -) 1 tab PO DAILY [facility] Last Admin: 03/29/16 12:36 Dose: Not Given Methylprednisolone Sodium Succinate (Solu-Medrol -) 40 mg IVPB Q8H-IV [facility] Pantoprazole Sodium (Protonix -) 40 mg PO DAILY [facility] Last Admin: 03/29/16 12:31 Dose: Not Given Polyethylene Glycol (Miralax (For Daily Use) -) 17 gm PO DAILY [facility] Last Admin: 03/29/16 12:32 Dose: Not Given Pregabalin (Lyrica -) 50 mg PO DAILY [facility] Last Admin: 03/29/16 12:35 Dose: Not Given Silver Sulfadiazine (Silvadene -) 1 applic TP DAILY [facility] Last Admin: 03/29/16 12:12 Dose: 1 applic Sodium Chloride ([place] Nasal [place] -) 2 spray NS BID PRN PRN Reason: NASAL CONGESTION Tiotropium Mobile (Spiriva -) 1 puff IH DAILY [facility] Last Admin: 03/28/16 10:03 Dose: 1 puff Zinc Oxide/Panthenol/Vitamin E (Balmex Cream -) 1 applic TP ASDIR PRN PRN Reason: HYGEINE Last Admin: 03/27/16 15:41 Dose: 1 applic A/P 75 year old Gentleman with PMhx of CKD Stage 3 (baseline Cr 1.9), Hx of Nephrolithiasis, Hypertension, COPD, CHF, PVD, Chronic LE lymph edema who was sent into the ED from wound care for increased lethargy and decreased urination for several days with KARLOS with BUN/Cr of 115/7.2 and K of 6.5 #Acute Renal Failure with incomplete recovery now with fluid overload requiring dialysis again Will hold off dialysis today because of mild hypotension Purilent discharge seen at catheter site, Blood cultures + Vascular Sx to eval, likely will need to remove catheter Will monitor labs determine need for HD going forward #Anemia Hgb stable continue Procrit #+ Blood cultures emperic Abx as per PMD/ID #Resp Failure on Vent Management as per ICU Melvin Johnson DO
--- NOTE | 2016-03-29 13:55 | PN ---
Teaching Attending Note Name of Resident: Zachery Blum ATTENDING PHYSICIAN STATEMENT I saw and evaluated the patient. I reviewed the resident's note and discussed the case with the resident. I agree with the resident's findings and plan as documented. SUBJECTIVE: Rapid response was called, patient was found unresponsive. Stat ABG was ordered , and patient was placed on Bipap, CXR stat and further work up was ordered. Patient started to respond to to verbal commands. will open eyes. Patient was transferred to ICU , ABG with elevated PCO2 , therefore patient was intubated. OBJECTIVE: Vital Signs Temperature 100.9 F H 03/29/16 06:00 Pulse Rate 90 03/29/16 08:45 Respiratory Rate 11 L 03/29/16 10:30 Blood Pressure 81/39 03/29/16 08:45 O2 Sat by Pulse Oximetry (%) 92 L 03/29/16 10:30 GENERAL: Patient is intubated and sedated. HEAD: Normal with no signs of trauma. EYES: PERRL, extraocular movements intact, sclera anicteric, conjunctiva clear. No ptosis. ENT: Ears normal, oropharynx clear without exudates, moist mucous membranes. NECK: Trachea midline, full range of motion, supple. LUNGS: positive for Rhonchi , positive for accessory muscle use. intubated sedated HEART: Regular rate and rhythm, S1, S2 without murmur, rub or gallop. ABDOMEN: Soft,obese, nontender, nondistended, normoactive bowel sounds, no guarding, no rebound, no hepatosplenomegaly, no masses. EXTREMITIES: 2+ pulses, warm, well-perfused, 3+ edema. NEUROLOGICAL:Opens eyes, earlier unresponsive, follows commands. PSYCH:sedated SKIN: bilat. lower ext. stasis dermatitis. CBCD WBC 11.1 K/mm3 (4.0-10.0) H D 03/29/16 07:37 RBC 3.44 M/mm3 (4.00-5.60) L 03/29/16 07:37 Hgb 9.1 GM/dL (11.7-16.9) L D 03/29/16 07:37 Hct 30.5 % (35.4-49) L 03/29/16 07:37 MCV 88.8 fl (80-96) 03/29/16 07:37 MCHC 29.7 g/dl (32.0-35.9) L 03/29/16 07:37 RDW 21.1 % (11.9-15.9) H 03/29/16 07:37 Plt Count 218 K/MM3 (134-434) D 03/29/16 07:37 MPV 9.1 fl (7.5-11.1) 03/29/16 07:37 CMP Sodium 140 mmol/L (136-145) 03/29/16 07:37 Potassium 4.9 mmol/L (3.5-5.1) D 03/29/16 07:37 Chloride 107 mmol/L (98-107) 03/29/16 07:37 Carbon Dioxide 32 mmol/L (21-32) 03/29/16 07:37 Anion Gap 1 (8-16) L 03/29/16 07:37 BUN 43 mg/dL (7-18) H 03/29/16 07:37 Creatinine 3.3 mg/dL (0.7-1.3) H D 03/29/16 07:37 Creat Clearance w eGFR 18.47 (>60) 03/29/16 07:37 Random Glucose 93 mg/dL (74-106) 03/29/16 07:37 Calcium 7.6 mg/dL (8.5-10.1) L 03/29/16 07:37 Total Bilirubin 0.7 mg/dL (0.2-1.0) D 03/29/16 07:37 AST 14 U/L (15-37) L 03/29/16 07:37 ALT 12 U/L (12-78) 03/29/16 07:37 Alkaline Phosphatase 119 U/L (45-117) H 03/29/16 07:37 Total Protein 5.5 g/dl (6.4-8.2) L 03/29/16 07:37 Albumin 2.1 g/dl (3.4-5.0) L 03/29/16 07:37 CARDIAC ENZYMES Creatine Kinase 20 IU/L (39-308) L 03/29/16 07:37 Troponin I < 0.02 ng/ml (0.00-0.05) 03/29/16 07:37 Current Medications Generic Name Dose Route Start Last Admin Trade Name Freq PRN Reason Stop Dose Admin Acetaminophen 650 mg 03/22/16 16:39 03/29/16 02:46 Tylenol - PO 650 mg Q6H PRN Administration FEVER OR PAIN Acetylcysteine 200 mg 03/22/16 22:00 03/29/16 11:00 Mucomyst 20 Oral / Inh Use Only* NEB 200 mg BID LESLEE Administration Albuterol Sulfate 1 amp 03/27/16 10:48 03/28/16 09:30 Ventolin 0.042trength) - NEB 1 amp Q6H PRN Administration SHORT OF BREATH/WHEEZING Amlodipine Besylate 10 mg 03/23/16 10:00 03/29/16 12:32 Norvasc - PO Not Given DAILY [facility] Arformoterol Tartrate 1 amp 03/27/16 11:00 03/29/16 11:00 Brovana (Restricted To Pulmonology/Resp) - NEB 1 amp BID LESLEE Administration Aspirin 81 mg 03/28/16 10:00 03/29/16 12:35 Ecotrin - PO Not Given DAILY [facility] Calcitriol 0.25 mcg 03/23/16 10:00 03/29/16 12:31 Rocaltrol - PO Not Given DAILY [facility] Calcium Acetate 1,334 mg 03/22/16 17:30 03/29/16 12:31 Phoslo - PO Not Given TIDCM [facility] Docusate Sodium 100 mg 03/27/16 22:00 03/29/16 12:35 Colace - PO Not Given BID [facility] Duloxetine HCl 40 mg 03/26/16 10:00 03/29/16 12:35 Cymbalta - PO Not Given DAILY [facility] Epoetin Keith 20,000 unit 03/24/16 10:00 03/29/16 12:26 Procrit - SQ Not Given MoWeFr@1000 [facility] Heparin Sodium (Porcine) 5,000 unit 03/29/16 10:00 03/29/16 11:00 Heparin - SQ 5,000 unit TID [facility] Administration Aztreonam 0.5 gm/ Dextrose 50 mls @ 100 mls/hr 03/22/16 18:00 03/29/16 12:24 IVPB 100 mls/hr Q8H-IV [facility]ES[facility]E Administration Clindamycin Phosphate 300 mg/ 50 mls @ 104 mls/hr 03/22/16 18:00 03/29/16 01:33 Dextrose IVPB 104 mls/hr Q8H-IV [facility]E Administration Propofol 100 mls @ 4.315 mls/hr 03/29/16 10:15 03/29/16 10:15 Diprivan - IVPB 4.315 mls/hr TITR LESLEE Administration Protocol 5 MCG/KG/MIN Lactobacillus Acidophilus 1 tab 03/23/16 10:00 03/29/16 12:36 Bacid - PO Not Given DAILY [facility] Methylprednisolone Sodium Succinate 40 mg 03/29/16 12:45 Solu-Medrol - IVPB Q8H-IV [facility] Pantoprazole Sodium 40 mg 03/23/16 10:00 03/29/16 12:31 Protonix - PO Not Given DAILY [facility] Polyethylene Glycol 17 gm 03/23/16 10:00 03/29/16 12:32 Miralax (For Daily Use) - PO Not Given DAILY [facility] Pregabalin 50 mg 03/23/16 10:00 03/29/16 12:35 Lyrica - PO Not Given DAILY [facility] Silver Sulfadiazine 1 applic 03/23/16 10:00 03/29/16 12:12 Silvadene - TP 1 applic DAILY [facility] Administration Sodium Chloride 2 spray 03/22/16 16:39 [place] Nasal [place] - NS BID PRN NASAL CONGESTION Tiotropium [place] 1 puff 03/23/16 10:00 03/28/16 10:03 Spiriva - IH 1 puff DAILY [facility] Administration Zinc Oxide/Panthenol/Vitamin E 1 applic 03/22/16 16:39 03/27/16 15:41 Balmex Cream - TP 1 applic ASDIR PRN Administration HYGEINE Medication Instructions Recorded Acetaminophen W/ Codeine #3 1 tab PO Q6H PRN 02/18/16 [Tylenol # 3 -] Albuterol 0.083% Nebulizer Soni 1 amp NEB ASDIR PRN 02/18/16 [Ventolin 0.083% Nebulizer Soln -] Aspirin [Ecotrin] 81 mg PO DAILY 02/18/16 Duloxetine HCl 20 mg PO DAILY 02/18/16 Furosemide 20 mg PO HS 02/18/16 Furosemide 40 mg PO DAILY 02/18/16 Hydralazine HCl [Apresoline -] 50 mg PO HS 02/18/16 Prasugrel HCl [Effient] 10 mg PO DAILY 02/18/16 Prednisone 5 mg PO DAILY 02/18/16 Pregabalin [Lyrica] 25 mg PO DAILY 02/18/16 Laboratory Tests 02/18/16 02/18/16 02/19/16 19:15 19:15 05:30 ABG pH ABG pCO2 at Pt Temp ABG pO2 at Pt Temp ABG HCO3 ABG O2 Sat (Measured) ABG O2 Content Issac Test Potassium 7.2 H* 7.5 H* Creatinine 7.1 H 7.3 H Calcium 6.8 L* 6.9 L* Phosphorus 9.1 H* D Magnesium 2.9 H Troponin I < 0.02 02/19/16 03/29/16 05:30 07:37 ABG pH 7.27 L ABG pCO2 at Pt Temp 67.3 H* D ABG pO2 at Pt Temp 88.0 ABG HCO3 30.2 H ABG O2 Sat (Measured) 96.3 ABG O2 Content 11.6 L Issac Test Positive Potassium Creatinine Calcium Phosphorus Magnesium Troponin I < 0.02 ASSESSMENT AND PLAN: 75 year-old man with a PMHx of HTN, PVD, COPD, CKD (baseline Cr 1.8), nephrolithiasis, D CHF , CAD s/p stenting in 03/23 and chronic LE lymphedema. presented with SOB and was found to have acute hypercapnic resp failure with acute renal failure . # Acute hypercapnic resp failure s/p Intubation due to COPD exacerbation, Patient is being transferred to ICU since ABG is in Hypercapneic state discussed with accepted the patient in ICU for further w/u and furhter vent.management per ICU # Acute Diastolic heart failure and pleural effusions s/p R and L thoracocentesis ;off steroids # ESRD on HD continue as per entry level further management per nephro on cacitriol and phoslo # Cellultis of LE : improved .on Antibiotic s continue on Clindamycin and Azactam as per ID # Normocytic anemia. s/p transfusion. cont to monitor. 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 Improved . # HTN: cont norvasc # CAD : s/p Stenting 03/23 on Asa. critical care time 35minutes
[2016-03-29] MEDS: methylPREDNISolone NA SUCC 40 MG/1 ML VIAL IVPB SCH ×2 (14:51→18:55)
--- NOTE | 2016-03-29 15:25 | PN ---
Physical Exam: HPI: Pt is a 75yo M with significant history of CHF, chronic lymphedema, COPD (2L O2 at home), CAD s/p stents x2 (unknown material), CKD, HTN, hypercholesterolemia who originally was admitted on 02/17 for SOB for the prior three days w/o associated cough, PALMER, or fever/chills. In addition to this, pt met criteria for sepsis due to b/l lower extremity cellulitis. The decision to admit to ICU and place on BiPap and lasix was made. His b/l cellulitis had been treated with Clindamycin IV q8h and Aztreonam q8h (which provided resolution later on) and the decision to downgrade care out of the ICU was made. He was put on fluid restrictions and BiPap PRN alongside lasix. Throughout his hospital course, he had been improving until he began to be noncompliant with his BiPap/oxygen and fluid restrictions which worsened his work of breathing. During this admission CXR showed chronic congestive changes with bilateral effusions and he received a R thoracentesis which drained 800cc of transudative fluid per IR, however hematoma formation occurred at the site of procedure. Prasurgrel was subsequently held for 5 days and L thoracentesis was performed which drained 600cc of transudative fluid without complication per IR. Pt's b/l cellulitis returned and abx treatment was again reinstated. In recent history, pt had received a R Perma-cath per vascular surgery and initiated HD for his acute on chronic renal dz and help with volume managment. He was receiving steroid therapy to help with his increased WOB and was noted to be thombocytopenic secondary to possible HIT. Heparin was subsequently held which allowed for increasing improvement to plt count resolution today. On 03/28 he was seen for rigors and chills with peak temperature of 102F. His abx regiment was changed to vancomycin and aztreonam for coverage of possible hospital acquired MRSA. On 03/29 INVENTORY MANAGEMENT SPECIALIST was called at 0700h due to finding the patient unresponsive to verbal and tactile stimuli, tachypneic with O2 off of his nose and lilly catheter out. He was found to be in acute hypercapnic respiratory distress and was transferred to the ICU. The decision was made to intubate him for his respiratory distress refractory to BiPap. PCP: Dr. Sotomayor Roper Operator: Dr. Barker Consumer Electronics Merchandiser: Dr. Ferrer OBJECTIVE: Vital Signs Period Temp Pulse Resp BP Sys/[place] Pulse Ox Last 24 Hr 99.6 F-102.9 F 88-115 11-20 81-133/39-62 91-100 GENERAL: Patient is intubated and sedated. HEAD: Normal with no signs of trauma. EYES: PERRL, extraocular movements intact, sclera anicteric, conjunctiva clear. No ptosis. ENT: Ears normal, nares patent, oropharynx clear without exudates, moist mucous membranes. NECK: Trachea midline, full range of motion, supple. LUNGS: Breath sounds equal, clear to auscultation bilaterally, no wheezes, no crackles, no accessory muscle use. HEART: Regular rate and rhythm, S1, S2 without murmur, rub or gallop. ABDOMEN: Soft,obese, nontender, nondistended, normoactive bowel sounds, no guarding, no rebound, no hepatosplenomegaly, no masses. EXTREMITIES: 2+ pulses, warm, well-perfused, 3+ edema. NEUROLOGICAL:sedated. PSYCH: non-verbal, intubated. SKIN: bilat. lower ext. stasis dermatitis. Laboratory Results - last 24 hr 03/28/16 03/29/16 03/29/16 16:15 07:29 07:37 WBC RBC Hgb Hct MCV MCHC RDW Plt Count MPV Neutrophils % Lymphocytes % Monocytes % Eosinophils % Basophils % Anticoagulation Therapy Puncture Site ABG pH ABG pCO2 at Pt Temp ABG pO2 at Pt Temp ABG HCO3 ABG O2 Sat (Measured) ABG O2 Content ABG Base Excess Issac Test O2 Delivery Device Oxygen Flow Rate Vent Mode Vent Rate Mechanical Rate PEEP Pressure Support Vent Sodium Potassium Chloride Carbon Dioxide Anion Gap BUN Creatinine Creat Clearance w eGFR POC Glucometer 119 Random Glucose Lactic Acid 1.298 2.712 H* Calcium Total Bilirubin AST ALT Alkaline Phosphatase Creatine Kinase Troponin I B-Natriuretic Peptide Total Protein Albumin Random Vancomycin 03/29/16 03/29/16 03/29/16 07:37 07:37 07:37 WBC 11.1 H D RBC 3.44 L Hgb 9.1 L D Hct 30.5 L MCV 88.8 MCHC 29.7 L RDW 21.1 H Plt Count 218 D MPV 9.1 Neutrophils % 84.8 H Lymphocytes % 7.3 L D Monocytes % 6.8 Eosinophils % 0.9 Basophils % 0.2 Anticoagulation Therapy Y Puncture Site Left radial ABG pH 7.27 L ABG pCO2 at Pt Temp 67.3 H* D ABG pO2 at Pt Temp 88.0 ABG HCO3 30.2 H ABG O2 Sat (Measured) 96.3 ABG O2 Content 11.6 L ABG Base Excess 2.9 H Issac Test Positive O2 Delivery Device Bipap Oxygen Flow Rate 100% Vent Mode S/t Vent Rate 14 Mechanical Rate Bipap PEEP 0.0 Pressure Support Vent Ipap 18/epap 6 Sodium 140 Potassium 4.9 D Chloride 107 Carbon Dioxide 32 Anion Gap 1 L BUN 43 H Creatinine 3.3 H D Creat Clearance w eGFR 18.47 POC Glucometer Random Glucose 93 Lactic Acid Calcium 7.6 L Total Bilirubin 0.7 D AST 14 L ALT 12 Alkaline Phosphatase 119 H Creatine Kinase Troponin I B-Natriuretic Peptide 42030.96 H Total Protein 5.5 L Albumin 2.1 L Random Vancomycin 03/29/16 03/29/16 03/29/16 07:37 10:30 12:22 WBC RBC Hgb Hct MCV MCHC RDW Plt Count MPV Neutrophils % Lymphocytes % Monocytes % Eosinophils % Basophils % Anticoagulation Therapy Puncture Site Right radial ABG pH 7.36 ABG pCO2 at Pt Temp 57.1 H ABG pO2 at Pt Temp 55.8 L D ABG HCO3 31.4 H ABG O2 Sat (Measured) 89.9 L ABG O2 Content 9.7 L* ABG Base Excess 5.7 H Issac Test Positive O2 Delivery Device Mec.vent Oxygen Flow Rate 40% Vent Mode A/c Vent Rate 10 Mechanical Rate Yes PEEP 5.0 Pressure Support Vent 400 Sodium Potassium Chloride Carbon Dioxide Anion Gap BUN Creatinine Creat Clearance w eGFR POC Glucometer Random Glucose Lactic Acid Calcium Total Bilirubin AST ALT Alkaline Phosphatase Creatine Kinase 20 L Troponin I < 0.02 B-Natriuretic Peptide Total Protein Albumin Random Vancomycin 11.123 Active Medications Generic Name Dose Route Start Last Admin Trade Name Freq PRN Reason Stop Dose Admin Acetaminophen 650 mg 03/22/16 16:39 03/29/16 02:46 Tylenol - PO 650 mg Q6H PRN Administration FEVER OR PAIN Acetylcysteine 200 mg 03/22/16 22:00 03/29/16 11:00 Mucomyst 20 Oral / Inh Use Only* NEB 200 mg BID LESLEE Administration Albuterol Sulfate 1 amp 03/27/16 10:48 03/28/16 09:30 Ventolin 0.042trength) - NEB 1 amp Q6H PRN Administration SHORT OF BREATH/WHEEZING Amlodipine Besylate 10 mg 03/23/16 10:00 03/29/16 12:32 Norvasc - PO Not Given DAILY [facility] Aspirin 81 mg 03/28/16 10:00 03/29/16 12:35 Ecotrin - PO Not Given DAILY [facility] Calcitriol 0.25 mcg 03/23/16 10:00 03/29/16 12:31 Rocaltrol - PO Not Given DAILY [facility] Calcium Acetate 1,334 mg 03/22/16 17:30 03/29/16 12:31 Phoslo - PO Not Given TIDCM [facility] Docusate Sodium 100 mg 03/27/16 22:00 03/29/16 12:35 Colace - PO Not Given BID [facility] Duloxetine HCl 40 mg 03/26/16 10:00 03/29/16 12:35 Cymbalta - PO Not Given DAILY [facility] Epoetin Keith 20,000 unit 03/24/16 10:00 03/29/16 12:26 Procrit - SQ Not Given [id number]@1000 [facility] Heparin Sodium (Porcine) 5,000 unit 03/29/16 10:00 03/29/16 14:51 Heparin - SQ 5,000 unit TID [facility]E Administration Aztreonam 0.5 gm/ Dextrose 50 mls @ 100 mls/hr 03/22/16 18:00 03/29/16 12:24 IVPB 100 mls/hr Q8H-IV [facility] Administration Clindamycin Phosphate 300 mg/ 50 mls @ 104 mls/hr 03/22/16 18:00 03/29/16 13:00 Dextrose IVPB 104 mls/hr Q8H-IV [facility] Administration Propofol 100 mls @ 4.315 mls/hr 03/29/16 10:15 03/29/16 10:15 Diprivan - IVPB 4.315 mls/hr TITR LESLEE Administration Protocol 5 MCG/KG/MIN Lactobacillus Acidophilus 1 tab 03/23/16 10:00 03/29/16 12:36 Bacid - PO Not Given DAILY [facility] Methylprednisolone Sodium Succinate 40 mg 03/29/16 12:45 03/29/16 14:51 Solu-Medrol - IVPB 40 mg Q8H-IV [facility]E Administration Pantoprazole Sodium 40 mg 03/23/16 10:00 03/29/16 12:31 Protonix - PO Not Given DAILY [facility] Polyethylene Glycol 17 gm 03/23/16 10:00 03/29/16 12:32 Miralax (For Daily Use) - PO Not Given DAILY [facility] Pregabalin 50 mg 03/23/16 10:00 03/29/16 12:35 Lyrica - PO Not Given DAILY [facility] Silver Sulfadiazine 1 applic 03/23/16 10:00 03/29/16 12:12 Silvadene - TP 1 applic DAILY [facility] Administration Sodium Chloride 2 spray 03/22/16 16:39 [place] Nasal [place] - NS BID PRN NASAL CONGESTION Zinc Oxide/Panthenol/Vitamin E 1 applic 03/22/16 16:39 03/27/16 15:41 Balmex Cream - TP 1 applic ASDIR PRN Administration HYGEINE ASSESSMENT AND PLAN: 75 yo M with extensive hospital stay transferred down for hypotension, fevers and altered mental status. Pt minimally responsive to noxious stimuli, subsequently intubated with copious secretions. Purulent drainage noted from permacath site. Neuro: -Intubated and sedated -Continue sedation with Propofol . Pulmonary: - pt intubated, monitor ABG - start IV medrol 60mg q8h - inhaled bronchodilators standing and PRN ID: - continue vanco by level - trend lactic acid - f/u cultures, sent permacath swab - d/c'd permacath with Dr. Strickland Renal: - HD per renal - Will need Shiley tomorrow if HD necessary. - monitor urine output, creatinine DVT/GI prophylaxis - Protonix 40mg IV daily - Heparin 5000U TID Visit type - Emergency Visit Emergency Visit: Yes ED Registration Date: 02/18/16 Care time: The patient presented to the Emergency Department on the above date and was hospitalized for further evaluation of their emergent condition. - New Patient This patient is new to me today: Yes Date on this admission: 03/30/16 - Critical Care Critical Care patient: Yes Total Critical Care Time (in minutes): 35 Critical Care Statement: The care of this patient involved high complexity decision making to prevent further life threatening deterioration of the patient 's condition and/or to evalute & treat vital organ system(s) failure or risk of failure.
--- NOTE | 2016-03-29 16:12 | PN ---
Progress Note, Physician History of Present Illness: events noted from last night patient became septic and was transferred to icu culture taken from the catheter shows positive blood cultures patient is intubated and awake and alert - Current Medication List Current Medications: Active Medications Acetaminophen (Tylenol -) 650 mg PO Q6H PRN PRN Reason: FEVER OR PAIN Last Admin: 03/29/16 02:46 Dose: 650 mg Acetylcysteine (Mucomyst 20 Oral / Inh Use Only*) 200 mg NEB BID [facility] Last Admin: 03/29/16 11:00 Dose: 200 mg Albuterol Sulfate (Ventolin 0.042trength) -) 1 amp NEB Q6H PRN PRN Reason: SHORT OF BREATH/WHEEZING Last Admin: 03/28/16 09:30 Dose: 1 amp Albuterol/Ipratropium (Duoneb -) 1 amp NEB QIDR [facility] Amlodipine Besylate (Norvasc -) 10 mg PO DAILY [facility] Last Admin: 03/29/16 12:32 Dose: Not Given Aspirin (Ecotrin -) 81 mg PO DAILY [facility] Last Admin: 03/29/16 12:35 Dose: Not Given Calcitriol (Rocaltrol -) 0.25 mcg PO DAILY [facility] Last Admin: 03/29/16 12:31 Dose: Not Given Calcium Acetate (Phoslo -) 1,334 mg PO TIDCM [facility] Last Admin: 03/29/16 12:31 Dose: Not Given Docusate Sodium (Colace -) 100 mg PO BID [facility] Last Admin: 03/29/16 12:35 Dose: Not Given Duloxetine HCl (Cymbalta -) 40 mg PO DAILY [facility] Last Admin: 03/29/16 12:35 Dose: Not Given Epoetin Keith (Procrit -) 20,000 unit SQ MoWeFr@1000 [facility] Last Admin: 03/29/16 12:26 Dose: Not Given Heparin Sodium (Porcine) (Heparin -) 5,000 unit SQ TID [facility] Last Admin: 03/29/16 14:51 Dose: 5,000 unit Aztreonam 0.5 gm/ Dextrose 50 mls @ 100 mls/hr IVPB Q8H-IV [facility] Last Admin: 03/29/16 12:24 Dose: 100 mls/hr Clindamycin Phosphate 300 mg/ (Dextrose) 50 mls @ 104 mls/hr IVPB Q8H-IV [facility] Last Admin: 03/29/16 13:00 Dose: 104 mls/hr Propofol (Diprivan -) 100 mls @ 4.315 mls/hr IVPB TITR [facility]; 5 MCG/KG/MIN PRN Reason: Protocol Last Admin: 03/29/16 10:15 Dose: 4.315 mls/hr Lactobacillus Acidophilus (Bacid -) 1 tab PO DAILY [facility] Last Admin: 03/29/16 12:36 Dose: Not Given Methylprednisolone Sodium Succinate (Solu-Medrol -) 40 mg IVPB Q8H-IV [facility] Last Admin: 03/29/16 14:51 Dose: 40 mg Pantoprazole Sodium (Protonix -) 40 mg PO DAILY [facility] Last Admin: 03/29/16 12:31 Dose: Not Given Polyethylene Glycol (Miralax (For Daily Use) -) 17 gm PO DAILY [facility] Last Admin: 03/29/16 12:32 Dose: Not Given Pregabalin (Lyrica -) 50 mg PO DAILY [facility] Last Admin: 03/29/16 12:35 Dose: Not Given Silver Sulfadiazine (Silvadene -) 1 applic TP DAILY [facility] Last Admin: 03/29/16 12:12 Dose: 1 applic Sodium Chloride ([place] Nasal [place] -) 2 spray NS BID PRN PRN Reason: NASAL CONGESTION Zinc Oxide/Panthenol/Vitamin E (Balmex Cream -) 1 applic TP ASDIR PRN PRN Reason: HYGEINE Last Admin: 03/27/16 15:41 Dose: 1 applic - Objective Vital Signs: Vital Signs Temperature 100.9 F H 03/29/16 06:00 Pulse Rate 90 03/29/16 08:45 Respiratory Rate 17 03/29/16 14:58 Blood Pressure 81/39 03/29/16 08:45 O2 Sat by Pulse Oximetry (%) 92 L 03/29/16 10:30 Constitutional: Yes: Calm, Other Cardiovascular: Yes: Regular Rate and Rhythm Respiratory: Yes: Intubated, Mechanically Ventilated, Other Gastrointestinal: Yes: Normal Bowel Sounds, Soft Musculoskeletal: Yes: WNL Extremities: Yes: Other Neurological: Yes: Alert Psychiatric: Yes: Alert, Other Labs: CBC, BMP 03/29/16 07:37 03/29/16 07:37 INR, PTT INR 1.16 (0.82-1.09) H 03/20/16 09:20 Fibrinogen 547.0 mg/dL (238-498) H 03/17/16 06:30 Assessment/Plan 75 year-old man with a PMH of HTN, PVD, COPD, CKD (baseline Cr 1.9), nephrolithiasis, and chronic LE lymphedema. Admitted in acute renal failure. Acute on chronic renal failure Hyperkalemia Sepsis s Hypertension Peripheral vascular disease Hypercarbic respiratory failure COPD bilateral cellulitis of the legs rsv lung infection pleural effusion anemia fevers gm positive bacteremia plan cellulitis improving blood cx results noted gm positive stat removal of dialysis catheter --done await for identification of the organism send blood cx stat tomorrow morning cc time 50 min
--- NOTE | 2016-03-29 16:15 | PN ---
Progress Note (short form) - Note Progress Note: Vascular Surgery Pt seen and examined. Right IJ PC infection. With drainage of pus. PC removed. Will need doe mccarty for HD Dante Strickland DO
[2016-03-29] MEDS ORDERED: DEXTROSE 5% IVPB ONE (16:27)
[2016-03-29] MEDS ORDERED: VANCOMYCIN IVPB ONE (16:27)
[2016-03-29] MEDS ORDERED: WATER IVPB ONE (16:27)
[2016-03-29] MEDS: TIOTROPIUM BROMIDE 18 MCG/INH (DEVICE W/ 5 CAPSULES) IH SCH (16:30)
[2016-03-29] MEDS ORDERED: VANCOMYCIN 750 MG in DEXTROSE 5%-WATER - 250 ML IVPB ONE (16:36)
[2016-03-29] MEDS: ALBUTEROL SO4 2.5/IPRATROPIUM 0.5 INH SOL 3 ML VIAL.NEB. NEB SCH (17:50)
[2016-03-29] MEDS: PANTOPRAZOLE SODIUM 100 ML IVPB SCH (18:55)
[2016-03-29] MEDS: MUPIROCIN 2% TOPICAL OINTMENT FOR DECOLONIZATION NS SCH (21:38)
[2016-03-29] MEDS: CHLORHEXIDINE GLUCONATE 0.12% 15ML CUP MM SCH (21:39)
[2016-03-29] MEDS ORDERED: AZTREONAM 0.5 GM in DEXTROSE 5%-WATER - 50 ML IVPB SCH (22:00)
[2016-03-29] MEDS: ALBUTEROL SO4 0.042% IH SOL 1.25 MG/3 ML VIAL.NEB NEB PRN (22:05)
[2016-03-30] MEDS: ALBUTEROL SO4 2.5/IPRATROPIUM 0.5 INH SOL 3 ML VIAL.NEB. NEB SCH ×5 (00:35→23:43)
[2016-03-30] MEDS: AZTREONAM 0.5 GM in DEXTROSE 5%-WATER - 50 ML IVPB SCH ×3 (03:04→17:17)
[2016-03-30] MEDS: methylPREDNISolone NA SUCC 40 MG/1 ML VIAL IVPB SCH ×3 (03:08→17:19)
[2016-03-30] MEDS ORDERED: ACETAMINOPHEN 1000 MG/100 ML VIAL (NON FORMULARY) IVPB ONE (03:45)
[2016-03-30] MEDS: HEPARIN NA (PORCINE) 5,000 UNITS/ML 1ML VIAL SQ SCH ×3 (05:57→21:48)
[2016-03-30] MEDS: FENTANYL INJECTION 500 MCG in DEXTROSE 5%-WATER - 90 ML IJ SCH (05:58)
[2016-03-30 06:20] LABS: BASOPHIL 0.4 % (0-2.0); MCH 25.3 pg (25.7-33.7); MEAN CELL VOLUME 87.4 fl (80-96); MEAN PLT VOLUME 9.4 fl (7.5-11.1); NEUTROPHILS 89.3 % (42.8-82.8); PLATELET COUNT 247 K/MM3 (134-434); RDW 21.3 % (11.9-15.9); WHITE BLOOD COUNT 8.6 K/mm3 (4.0-10.0)
[2016-03-30 06:39] LABS: INR 1.27 (0.82-1.09)
[2016-03-30 06:43] LABS: ACTIVATED PTT 34.6 SECONDS (26.9-34.4)
[2016-03-30 07:02] LABS: CALCIUM 7.3 mg/dL (8.5-10.1); CREATININE 4.3 mg/dL (0.7-1.3); MAGNESIUM 2.1 mg/dL (1.8-2.4); TOT PROT 5.1 g/dl (6.4-8.2)
[2016-03-30 07:03] LABS: ALBUMIN 1.9 g/dl (3.4-5.0); BILIRUBIN,TOTAL 0.5 mg/dL (0.2-1.0)
[2016-03-30 07:32] LABS: ANISOCYTOSIS 2+; MICROCYTOSIS 2+
[2016-03-30 07:35] LABS: ARTERIAL BLD GAS O2 SATURATION 96.8 % (90-98.9); ARTERIAL BLOOD GAS BASE EXCESS 1.7 meq/l (-2-2); ARTERIAL BLOOD GAS HCO3 27.4 meq/L (22-26); ARTERIAL BLOOD GAS PO2 86.4 mmHg (70-100)
[2016-03-30 07:37] LABS: ALLENS TEST POSITIVE; ART PUNCT SITE RIGHT RADIAL; ARTERIAL BLOOD GAS pH 7.33 (7.35-7.45); LPM/O2% 40%; MECH. VENT. ESPRIT; PT. ON O2? YES; TYPE OF O2 MEC.VENT; VENT RATE 10; VT/PRESS 400
--- NOTE | 2016-03-30 09:04 | PN ---
Progress Note, Physician Chief Complaint: remains intubated Permacath removed. Repeat blood cultures pending TELE: NSR Remains intubated on 40% FIO2 - Current Medication List Current Medications: Active Medications Acetaminophen (Tylenol -) 650 mg PO Q6H PRN PRN Reason: FEVER OR PAIN Last Admin: 03/29/16 02:46 Dose: 650 mg Acetylcysteine (Mucomyst 20 Oral / Inh Use Only*) 200 mg NEB BID [facility] Last Admin: 03/29/16 22:05 Dose: 200 mg Albuterol Sulfate (Ventolin 0.042trength) -) 1 amp NEB Q6H PRN PRN Reason: SHORT OF BREATH/WHEEZING Last Admin: 03/29/16 22:05 Dose: 1 amp Albuterol/Ipratropium (Duoneb -) 1 amp NEB QIDR [facility] Last Admin: 03/30/16 06:05 Dose: 1 amp Amlodipine Besylate (Norvasc -) 10 mg PO DAILY [facility] Last Admin: 03/29/16 12:32 Dose: Not Given Aspirin (Ecotrin -) 81 mg PO DAILY [facility] Last Admin: 03/29/16 12:35 Dose: Not Given Calcium Acetate (Phoslo -) 1,334 mg PO TIDCM [facility] Last Admin: 03/29/16 12:31 Dose: Not Given Chlorhexidine Gluconate (Peridex -) 15 ml MM BID [facility] Last Admin: 03/29/16 21:39 Dose: 15 ml Docusate Sodium (Colace -) 100 mg PO BID [facility] Last Admin: 03/29/16 21:38 Dose: Not Given Duloxetine HCl (Cymbalta -) 40 mg PO DAILY [facility] Last Admin: 03/29/16 12:35 Dose: Not Given Epoetin Keith (Procrit -) 20,000 unit SQ MoWeFr@1000 [facility] Last Admin: 03/29/16 12:26 Dose: Not Given Heparin Sodium (Porcine) (Heparin -) 5,000 unit SQ TID [facility] Last Admin: 03/30/16 05:57 Dose: 5,000 unit Propofol (Diprivan -) 100 mls @ 4.315 mls/hr IVPB TITR [facility]; 5 MCG/KG/MIN PRN Reason: Protocol Last Titration: 03/30/16 05:59 Dose: 20 mcg/kg/min Pantoprazole Sodium (Protonix 40mg Ivpb (Pre-Docked)) 100 mls @ 200 mls/hr IVPB DAILY [facility] Last Admin: 03/29/16 18:55 Dose: 200 mls/hr Aztreonam 0.5 gm/ Dextrose 50 mls @ 100 mls/hr IVPB Q8H-IV [facility] Last Admin: 03/30/16 03:04 Dose: 100 mls/hr Fentanyl 500 mcg/ Dextrose 100 mls @ 5 mls/hr IJ TITR [facility] PRN Reason: 25 MCG/HR Last Admin: 03/30/16 05:58 Dose: 5 mls/hr Methylprednisolone Sodium Succinate (Solu-Medrol -) 40 mg IVPB Q8H-IV [facility] Last Admin: 03/30/16 03:08 Dose: 40 mg Mupirocin (Bactroban Ointment (For Decolonization) -) 1 applic NS BID [facility] Stop: 04/03/16 21:59 Last Admin: 03/29/16 21:38 Dose: 1 applic Polyethylene Glycol (Miralax (For Daily Use) -) 17 gm PO DAILY [facility] Last Admin: 03/29/16 12:32 Dose: Not Given Sodium Chloride ([place] Nasal [place] -) 2 spray NS BID PRN PRN Reason: NASAL CONGESTION Zinc Oxide/Panthenol/Vitamin E (Balmex Cream -) 1 applic TP ASDIR PRN PRN Reason: HYGEINE Last Admin: 03/27/16 15:41 Dose: 1 applic - Objective Vital Signs: Vital Signs Temperature 97.6 F 03/30/16 06:00 Pulse Rate 75 03/30/16 06:00 Respiratory Rate 15 03/30/16 07:42 Blood Pressure 117/57 03/30/16 06:00 O2 Sat by Pulse Oximetry (%) 95 03/29/16 20:21 HENT: Yes: Other (+ ETT) Cardiovascular: Yes: Regular Rate and Rhythm Respiratory: Yes: Other (= breath sounds bilaterally) Gastrointestinal: Yes: Soft, Abdomen, Obese Edema: Yes Edema: LLE: 2+, RLE: 2+ Neurological: Yes: Other (sedated on vent) Labs: CBC, BMP 03/30/16 05:20 03/30/16 05:20 INR, PTT INR 1.27 (0.82-1.09) H 03/30/16 05:20 Fibrinogen 547.0 mg/dL (238-498) H 03/17/16 06:30 Microbiology 03/28/16 17:45 Blood - Tawanda Cath Blood Culture - Preliminary Pending Organism 03/28/16 16:30 Blood - Peripheral Venous Blood Culture - Preliminary Pending Organism 03/28/16 16:30 Blood - Peripheral Venous Blood Culture - Preliminary Pending Organism Laboratory Tests 03/29/16 03/30/16 03/30/16 07:37 05:20 05:20 WBC 8.6 Hgb 8.1 L D Hct 27.8 L Plt Count 247 ABG pH ABG pCO2 at Pt Temp ABG pO2 at Pt Temp Oxygen Flow Rate Potassium 4.6 BUN 62 H D Creatinine 4.3 H D Magnesium 2.1 Troponin I < 0.02 03/30/16 07:20 WBC Hgb Hct Plt Count ABG pH 7.33 L ABG pCO2 at Pt Temp 53.2 H ABG pO2 at Pt Temp 86.4 D Oxygen Flow Rate 40% Potassium BUN Creatinine Magnesium Troponin I - ....Imaging X-ray: Image Reviewed (improved aeration upper lobes) Assessment/Plan IMP: Acute on chronic hypercarbic respiratory failure Chronic COPD Sepsis, gram + Bacteremia, infected HD catheter- removed ESRD CAD REC: 1. Resp. failure: -intubated. Continue vent support. 2. Sepsis: -gram + bacteremia; infected HD catheter removed. -Vanco -Follow repeat cultures -ID evaluation noted -A repeat TTE is planned. 3. CAD: -PCI approximately one year ago -Back on ASA 81 after interval of thrombocytopenia earlier in admission 4. ESRD: -HD as per renal
[2016-03-30] MEDS ORDERED: ALBUTEROL SO4 0.083% IH SOL 2.5 MG/3 ML VIAL.NEB. NEB ONE (09:34)
[2016-03-30] MEDS ORDERED: VANCOMYCIN 1,250 MG in DEXTROSE 5%-WATER - 250 ML IVPB SCH (10:00)
[2016-03-30] MEDS: ACETYLCYSTEINE 20% 200MG/ML 4 ML VIAL *FOR ORAL / INH USE ONLY NEB SCH (10:13)
[2016-03-30] MEDS: PANTOPRAZOLE SODIUM 100 ML IVPB SCH (10:23)
[2016-03-30] MEDS: CHLORHEXIDINE GLUCONATE 0.12% 15ML CUP MM SCH ×2 (10:24→21:49)
[2016-03-30] MEDS: MUPIROCIN 2% TOPICAL OINTMENT FOR DECOLONIZATION NS SCH (10:24)
[2016-03-30] MEDS: PROPOFOL 100 ML IVPB SCH (10:25)
[2016-03-30] MEDS: ASPIRIN COATED 81 MG TABLET.EC PO SCH (10:26)
[2016-03-30] MEDS: CALCIUM ACETATE 667 MG CAPSULE (FP) PO SCH ×3 (10:26→17:21)
[2016-03-30] MEDS: amLODIPine BESYLATE 10 MG TABLET (FP) PO SCH (10:26)
[2016-03-30] MEDS: POLYETHYLENE GLYCOL 3350 119 GM BTL PO SCH (10:26)
[2016-03-30] MEDS: DOCUSATE SODIUM 100 MG CAPSULE (FP) PO SCH ×2 (10:27→21:48)
[2016-03-30] MEDS: DULoxetine HCL 20 MG CAPSULE.DR (FP) PO SCH (10:27)
--- NOTE | 2016-03-30 10:55 | PN ---
Teaching Attending Note Name of Resident: Lambert Ventura ATTENDING PHYSICIAN STATEMENT I saw and evaluated the patient. I reviewed the resident's note and discussed the case with the resident. I agree with the resident's findings and plan as documented. SUBJECTIVE: Pt seen and examined in the ICU. Remains intubated. Permacath removed yesterday. Febrile, hypotensive overnight but did not require pressors. Awake on light sedation, following commands. Tolerating CPAP/PS trials. Presumptive MRSA growing in blood cultures. OBJECTIVE: Last Vital Signs Temp Pulse Resp BP Pulse Ox 97.6 F 77 18 117/57 98 03/30/16 06:00 03/30/16 10:12 03/30/16 09:35 03/30/16 06:00 03/30/16 10:30 Intake & Output 03/27/16 03/28/16 03/29/16 03/30/16 23:59 23:59 23:59 23:59 Intake Total 100 600 566.9 380 Output Total 600 675 100 Balance -500 -75 466.9 380 Weight 262 lb 5.601 oz 261 lb 8 oz Gen: intubated, awake Heart: RRR Lung: decreased breath sounds at the bases Abd: soft, nontender EXt: + edema raymond RUE CBC, BMP 03/30/16 05:20 03/30/16 05:20 CXR: pulmonary vascular congestion, pleural effusions Active Medications Acetaminophen (Tylenol -) 650 mg PO Q6H PRN PRN Reason: FEVER OR PAIN Last Admin: 03/29/16 02:46 Dose: 650 mg Acetylcysteine (Mucomyst 20 Oral / Inh Use Only*) 200 mg NEB BID [facility] Last Admin: 03/30/16 10:13 Dose: Not Given Albuterol Sulfate (Ventolin 0.042trength) -) 1 amp NEB Q6H PRN PRN Reason: SHORT OF BREATH/WHEEZING Last Admin: 03/29/16 22:05 Dose: 1 amp Albuterol/Ipratropium (Duoneb -) 1 amp NEB QIDR [facility] Last Admin: 03/30/16 06:05 Dose: 1 amp Amlodipine Besylate (Norvasc -) 10 mg PO DAILY [facility] Last Admin: 03/30/16 10:26 Dose: Not Given Aspirin (Ecotrin -) 81 mg PO DAILY [facility] Last Admin: 03/30/16 10:26 Dose: Not Given Calcium Acetate (Phoslo -) 1,334 mg PO TIDCM [facility] Last Admin: 03/30/16 10:26 Dose: Not Given Chlorhexidine Gluconate (Peridex -) 15 ml MM BID [facility] Last Admin: 03/30/16 10:24 Dose: 15 ml Docusate Sodium (Colace -) 100 mg PO BID [facility] Last Admin: 03/30/16 10:27 Dose: Not Given Duloxetine HCl (Cymbalta -) 40 mg PO DAILY [facility] Last Admin: 03/30/16 10:27 Dose: Not Given Epoetin Keith (Procrit -) 20,000 unit SQ MoWeFr@1000 [facility] Last Admin: 03/29/16 12:26 Dose: Not Given Heparin Sodium (Porcine) (Heparin -) 5,000 unit SQ TID [facility] Last Admin: 03/30/16 05:57 Dose: 5,000 unit Propofol (Diprivan -) 100 mls @ 4.315 mls/hr IVPB TITR [facility]; 5 MCG/KG/MIN PRN Reason: Protocol Last Admin: 03/30/16 10:25 Dose: Not Given Pantoprazole Sodium (Protonix 40mg Ivpb (Pre-Docked)) 100 mls @ 200 mls/hr IVPB DAILY [facility] Last Admin: 03/30/16 10:23 Dose: 200 mls/hr Aztreonam 0.5 gm/ Dextrose 50 mls @ 100 mls/hr IVPB Q8H-IV [facility] Last Admin: 03/30/16 03:04 Dose: 100 mls/hr Fentanyl 500 mcg/ Dextrose 100 mls @ 5 mls/hr IJ TITR [facility] PRN Reason: 25 MCG/HR Last Titration: 03/30/16 10:25 Dose: 0 mcg/hr Methylprednisolone Sodium Succinate (Solu-Medrol -) 40 mg IVPB Q8H-IV [facility] Last Admin: 03/30/16 10:23 Dose: 40 mg Mupirocin (Bactroban Ointment (For Decolonization) -) 1 applic NS BID [facility] Stop: 04/03/16 21:59 Last Admin: 03/30/16 10:24 Dose: 1 applic Polyethylene Glycol (Miralax (For Daily Use) -) 17 gm PO DAILY [facility] Last Admin: 03/30/16 10:26 Dose: Not Given Sodium Chloride ([place] Nasal [place] -) 2 spray NS BID PRN PRN Reason: NASAL CONGESTION Zinc Oxide/Panthenol/Vitamin E (Balmex Cream -) 1 applic TP ASDIR PRN PRN Reason: HYGEINE Last Admin: 03/27/16 15:41 Dose: 1 applic ASSESSMENT AND PLAN: Acute on Chronic Hypercapneic and Hypoxic Respiratory Failure Likely Permacath Infection MRSA Bacteremia Severe Sepsis Acute on Chronic Renal Failure requiring HD Acute COPD Exacerbation Lactic Acidosis Acute on Chronic LV Diastolic Heart Failure CAD Morbid Obesity JOY/OHS - wean to extubate, BiPAP on standby - decrease medrol to 40mg q8h - inhaled bronchodilators standing and PRN - d/c mucomyst - dose vanco today, monitor levels - f/u cultures and sensitivities - HD per renal, ideally would like to postpone until pt defervesces, no emergent indication for HD today - monitor urine output, creatinine - DVT/GI prophylaxis - continue ICU monitoring
--- NOTE | 2016-03-30 10:55 | PN ---
Physical Exam: SUBJECTIVE: Patient seen and examined at bedside. Continues to be intubated. More alert and awake. Follows commands. No overnight events. OBJECTIVE: Vital Signs Period Temp Pulse Resp BP Sys/[place] Pulse Ox Last 24 Hr 97.6 F-100.1 F 73-89 14-20 92-117/48-72 92-98 GENERAL: Intubated but alert. HEAD: Normal with no signs of trauma. EYES: PERRL, extraocular movements intact, sclera anicteric, conjunctiva clear. No ptosis. ENT: Ears normal, nares patent,intubated. NECK: Trachea midline, full range of motion, supple. thick neck. LUNGS: Breath sounds equal, clear to auscultation bilaterally, no wheezes, no crackles, no accessory muscle use. HEART: Regular rate and rhythm, S1, S2 without murmur, rub or gallop. ABDOMEN: Soft, nontender, nondistended, normoactive bowel sounds, no guarding, no rebound, no hepatosplenomegaly, no masses. EXTREMITIES: 2+ pulses, warm, well-perfused, no edema. NEUROLOGICAL: Cranial nerves II through XII grossly intact. Normal speech, gait not observed. PSYCH: Normal mood, normal affect. SKIN: Warm, dry, normal turgor, no rashes or lesions noted Laboratory Results - last 24 hr 03/29/16 03/29/16 03/29/16 10:30 12:22 17:00 WBC RBC Hgb Hct MCV MCHC RDW Plt Count MPV Neutrophils % Lymphocytes % Monocytes % Eosinophils % Basophils % Anisocytosis Microcytosis INR PTT (Actin FS) Puncture Site Right radial ABG pH 7.36 ABG pCO2 at Pt Temp 57.1 H ABG pO2 at Pt Temp 55.8 L D ABG HCO3 31.4 H ABG O2 Sat (Measured) 89.9 L ABG O2 Content 9.7 L* ABG Base Excess 5.7 H Issac Test Positive O2 Delivery Device Mec.vent Oxygen Flow Rate 40% Vent Mode A/c Vent Rate 10 Mechanical Rate Yes PEEP 5.0 Pressure Support Vent 400 Sodium Potassium Chloride Carbon Dioxide Anion Gap BUN Creatinine Creat Clearance w eGFR Random Glucose Lactic Acid 1.495 Calcium Magnesium Total Bilirubin AST ALT Alkaline Phosphatase Total Protein Albumin Random Vancomycin 11.123 03/30/16 03/30/16 03/30/16 05:20 05:20 05:20 WBC 8.6 RBC 3.18 L Hgb 8.1 L D Hct 27.8 L MCV 87.4 MCHC 29.0 L RDW 21.3 H Plt Count 247 MPV 9.4 Neutrophils % 89.3 H Lymphocytes % 7.4 L Monocytes % 2.9 L Eosinophils % 0.0 D Basophils % 0.4 Anisocytosis 2+ Microcytosis 2+ INR 1.27 H PTT (Actin FS) 34.6 H Puncture Site ABG pH ABG pCO2 at Pt Temp ABG pO2 at Pt Temp ABG HCO3 ABG O2 Sat (Measured) ABG O2 Content ABG Base Excess Issac Test O2 Delivery Device Oxygen Flow Rate Vent Mode Vent Rate Mechanical Rate PEEP Pressure Support Vent Sodium 142 Potassium 4.6 Chloride 103 Carbon Dioxide 32 Anion Gap 7 L BUN 62 H D Creatinine 4.3 H D Creat Clearance w eGFR 13.61 Random Glucose 161 H D Lactic Acid Calcium 7.3 L Magnesium 2.1 Total Bilirubin 0.5 D AST 12 L ALT 12 Alkaline Phosphatase 99 Total Protein 5.1 L Albumin 1.9 L Random Vancomycin 03/30/16 03/30/16 03/30/16 05:20 07:20 07:55 WBC RBC Hgb Hct MCV MCHC RDW Plt Count MPV Neutrophils % Lymphocytes % Monocytes % Eosinophils % Basophils % Anisocytosis Microcytosis INR PTT (Actin FS) Puncture Site Right radial ABG pH 7.33 L ABG pCO2 at Pt Temp 53.2 H ABG pO2 at Pt Temp 86.4 D ABG HCO3 27.4 H ABG O2 Sat (Measured) 96.8 ABG O2 Content 10.8 L ABG Base Excess 1.7 Issac Test Positive O2 Delivery Device Mec.vent Oxygen Flow Rate 40% Vent Mode A/c Vent Rate 10 Mechanical Rate Esprit PEEP 8.0 Pressure Support Vent 400 Sodium Potassium Chloride Carbon Dioxide Anion Gap BUN Creatinine Creat Clearance w eGFR Random Glucose Lactic Acid 1.229 Calcium Magnesium Total Bilirubin AST ALT Alkaline Phosphatase Total Protein Albumin Random Vancomycin 15.087 Active Medications Generic Name Dose Route Start Last Admin Trade Name Freq PRN Reason Stop Dose Admin Acetaminophen 650 mg 03/22/16 16:39 03/29/16 02:46 Tylenol - PO 650 mg Q6H PRN Administration FEVER OR PAIN Acetylcysteine 200 mg 03/22/16 22:00 03/30/16 10:13 Mucomyst 20 Oral / Inh Use Only* NEB Not Given BID [facility] Albuterol Sulfate 1 amp 03/27/16 10:48 03/29/16 22:05 Ventolin 0.042trength) - NEB 1 amp Q6H PRN Administration SHORT OF BREATH/WHEEZING Albuterol/Ipratropium 1 amp 03/29/16 18:00 03/30/16 06:05 Duoneb - NEB 1 amp QIDR [facility] Administration Amlodipine Besylate 10 mg 03/23/16 10:00 03/30/16 10:26 Norvasc - PO Not Given DAILY [facility] Aspirin 81 mg 03/28/16 10:00 03/30/16 10:26 Ecotrin - PO Not Given DAILY [facility] Calcium Acetate 1,334 mg 03/22/16 17:30 03/30/16 10:26 Phoslo - PO Not Given TIDCM [facility] Chlorhexidine Gluconate 15 ml 03/29/16 22:00 03/30/16 10:24 Peridex - MM 15 ml BID [facility] Administration Docusate Sodium 100 mg 03/27/16 22:00 03/30/16 10:27 Colace - PO Not Given BID [facility] Duloxetine HCl 40 mg 03/26/16 10:00 03/30/16 10:27 Cymbalta - PO Not Given DAILY [facility] Epoetin Keith 20,000 unit 03/24/16 10:00 03/29/16 12:26 Procrit - SQ Not Given MoWeFr@1000 [facility] Heparin Sodium (Porcine) 5,000 unit 03/29/16 10:00 03/30/16 05:57 Heparin - SQ 5,000 unit TID [facility] Administration Propofol 100 mls @ 4.315 mls/hr 03/29/16 10:15 03/30/16 10:25 Diprivan - IVPB Not Given TITR [facility] Protocol 5 MCG/KG/MIN Pantoprazole Sodium 100 mls @ 200 mls/hr 03/29/16 18:30 03/30/16 10:23 Protonix 40mg Ivpb (Pre-Docked) IVPB 200 mls/hr DAILY [facility] Administration Aztreonam 0.5 gm/ Dextrose 50 mls @ 100 mls/hr 03/30/16 02:00 03/30/16 03:04 IVPB 100 mls/hr Q8H-IV [facility] Administration Fentanyl 500 mcg/ Dextrose 100 mls @ 5 mls/hr 03/30/16 04:45 03/30/16 10:25 IJ 0 mcg/hr TITR [facility] Titration 25 MCG/HR Methylprednisolone Sodium Succinate 40 mg 03/29/16 12:45 03/30/16 10:23 Solu-Medrol - IVPB 40 mg Q8H-IV [facility] Administration Mupirocin 1 applic 03/29/16 22:00 03/30/16 10:24 Bactroban Ointment (For Decolonization) - NS 04/03/16 21:59 1 applic BID [facility] Administration Polyethylene Glycol 17 gm 03/23/16 10:00 03/30/16 10:26 Miralax (For Daily Use) - PO Not Given DAILY [facility] Sodium Chloride 2 spray 03/22/16 16:39 [place] - NS BID PRN NASAL CONGESTION Zinc Oxide/Panthenol/Vitamin E 1 applic 03/22/16 16:39 03/27/16 15:41 Balmex Cream - TP 1 applic ASDIR PRN Administration HYGEINE ASSESSMENT/PLAN: 75 yo M with extensive hospital stay transferred down for hypotension, fevers and altered mental status. Patient improved today. Will extubate and observe in ICU. Neuro: -Intubated and sedated -will wean off sedation and extubate today. -Continue supplemental O2 with 50% venti mask. Pulmonary: - pt intubated, monitor ABG - start IV medrol 60mg q8h - inhaled bronchodilators standing and PRN ID: - continue vanco - random vanc level 15 - trend lactic acid - Presumptive MRSA from blood cultures. Renal: - HD per renal - will hold for now as there is no absolute need for HD at this time - will restart once afibrile DVT/GI prophylaxis - Protonix 40mg IV daily - Heparin 5000U TID Visit type - Emergency Visit Emergency Visit: Yes ED Registration Date: 02/18/16 Care time: The patient presented to the Emergency Department on the above date and was hospitalized for further evaluation of their emergent condition. - New Patient This patient is new to me today: No - Critical Care Critical Care patient: Yes Total Critical Care Time (in minutes): 33 Critical Care Statement: The care of this patient involved high complexity decision making to prevent further life threatening deterioration of the patient 's condition and/or to evalute & treat vital organ system(s) failure or risk of failure.
--- NOTE | 2016-03-30 11:56 | PN ---
Progress Note (short form) - Note Progress Note: Renal Follow up for KARLOS Pt seen and examined in the ICU Extubated this am denies any chest pain, sob, abd pain, fever, chills permacath removed yesterday low grade temp overnight Vital Signs Temperature 97.2 F L 03/30/16 10:00 Pulse Rate 79 03/30/16 11:00 Respiratory Rate 17 03/30/16 11:00 Blood Pressure 129/56 03/30/16 11:00 O2 Sat by Pulse Oximetry (%) 98 03/30/16 10:30 Intake & Output 03/27/16 03/28/16 03/29/16 03/30/16 23:59 23:59 23:59 23:59 Intake Total 100 600 566.9 380 Output Total 600 675 100 Balance -500 -75 466.9 380 Weight 262 lb 5.601 oz 261 lb 8 oz Gen: NAD CVS: RRR No M/R Lungs: dec BS throughout the lung rey Abd: Soft NT + Mild distension Ext: 2+ edema, legs in dressing CBC, BMP 03/30/16 05:20 03/30/16 05:20 Laboratory Tests 03/30/16 05:20 Calcium 7.3 L Magnesium 2.1 Current Medications Acetaminophen (Tylenol -) 650 mg PO Q6H PRN PRN Reason: FEVER OR PAIN Last Admin: 03/29/16 02:46 Dose: 650 mg Albuterol Sulfate (Ventolin 0.042trength) -) 1 amp NEB Q6H PRN PRN Reason: SHORT OF BREATH/WHEEZING Last Admin: 03/29/16 22:05 Dose: 1 amp Albuterol/Ipratropium (Duoneb -) 1 amp NEB QIDR [facility] Last Admin: 03/30/16 11:05 Dose: 1 amp Amlodipine Besylate (Norvasc -) 10 mg PO DAILY [facility] Last Admin: 03/30/16 10:26 Dose: Not Given Aspirin (Ecotrin -) 81 mg PO DAILY [facility] Last Admin: 03/30/16 10:26 Dose: Not Given Calcium Acetate (Phoslo -) 1,334 mg PO TIDCM [facility] Last Admin: 03/30/16 10:26 Dose: Not Given Chlorhexidine Gluconate (Peridex -) 15 ml MM BID [facility] Last Admin: 03/30/16 10:24 Dose: 15 ml Docusate Sodium (Colace -) 100 mg PO BID [facility] Last Admin: 03/30/16 10:27 Dose: Not Given Duloxetine HCl (Cymbalta -) 40 mg PO DAILY [facility] Last Admin: 03/30/16 10:27 Dose: Not Given Epoetin Keith (Procrit -) 20,000 unit SQ MoWeFr@1000 [facility] Last Admin: 03/29/16 12:26 Dose: Not Given Heparin Sodium (Porcine) (Heparin -) 5,000 unit SQ TID [facility] Last Admin: 03/30/16 05:57 Dose: 5,000 unit Propofol (Diprivan -) 100 mls @ 4.315 mls/hr IVPB TITR [facility]; 5 MCG/KG/MIN PRN Reason: Protocol Last Admin: 03/30/16 10:25 Dose: Not Given Pantoprazole Sodium (Protonix 40mg Ivpb (Pre-Docked)) 100 mls @ 200 mls/hr IVPB DAILY [facility] Last Admin: 03/30/16 10:23 Dose: 200 mls/hr Aztreonam 0.5 gm/ Dextrose 50 mls @ 100 mls/hr IVPB Q8H-IV [facility] Last Admin: 03/30/16 03:04 Dose: 100 mls/hr Fentanyl 500 mcg/ Dextrose 100 mls @ 5 mls/hr IJ TITR [facility] PRN Reason: 25 MCG/HR Last Titration: 03/30/16 10:25 Dose: 0 mcg/hr Methylprednisolone Sodium Succinate (Solu-Medrol -) 40 mg IVPB Q8H-IV [facility] Last Admin: 03/30/16 10:23 Dose: 40 mg Mupirocin (Bactroban Ointment (For Decolonization) -) 1 applic NS BID [facility] Stop: 04/03/16 21:59 Last Admin: 03/30/16 10:24 Dose: 1 applic Polyethylene Glycol (Miralax (For Daily Use) -) 17 gm PO DAILY [facility] Last Admin: 03/30/16 10:26 Dose: Not Given Sodium Chloride ([place] Nasal [place] -) 2 spray NS BID PRN PRN Reason: NASAL CONGESTION Zinc Oxide/Panthenol/Vitamin E (Balmex Cream -) 1 applic TP ASDIR PRN PRN Reason: HYGEINE Last Admin: 03/27/16 15:41 Dose: 1 applic A/P 75 year old Gentleman with PMhx of CKD Stage 3 (baseline Cr 1.9), Hx of Nephrolithiasis, Hypertension, COPD, CHF, PVD, Chronic LE lymph edema who was sent into the ED from wound care for increased lethargy and decreased urination for several days with KARLOS with BUN/Cr of 115/7.2 and K of 6.5 #Acute Renal Failure requiring dialysis for volume management Permacath removed yesterday no acute indication for ICE CREAM MIXER today Trend Labs, and montior volume status HD via temporary dialysis catheter when needed Dose all meds for Cr Cl less then 15 #Sepsis with MRSA bactermia s/p Vanco Todays level is 15 redose as per ID #Resp Failure s/p extubation continue IV steroids as per CCM Melvin Johnson DO
--- NOTE | 2016-03-30 15:13 | PN ---
Physical Exam: SUBJECTIVE: Patient seen and examined Pt is awake, alert and oriented Pt was extubated this morning Pt is moving all ext no chest pain, shortness of breath, palpitation pt has some fever overnight which resolved with tylenol OBJECTIVE: Vital Signs Period Temp Pulse Resp BP Sys/[place] Pulse Ox Last 24 Hr 97.2 F-100.1 F 69-87 11-19 96-129/48-72 92-98 ENERAL: The patient is awake, alert oriented, in no distress. HEAD: Normal with no signs of trauma. EYES: PERRL, extraocular movements intact, sclera anicteric, conjunctiva clear. No ptosis. ENT: Ears normal, nares patent, oropharynx clear without exudates, dry mucous membranes. NECK: Trachea midline, full range of motion, supple. LUNGS: b/l wheezes, reduced b/l crackles in lung bases HEART: tachycardic, Regular rate and rhythm, S1, S2 without murmur, rub or gallop. ABDOMEN: Soft, nontender, nondistended, normoactive bowel sounds, no guarding, no rebound, no hepatosplenomegaly, no masses. EXTREMITIES: 2+ pulses, warm, well-perfused. b/l lower ext edema 2+ with mild redness, improving NEUROLOGICAL: gait not observed. Strength 5/5 in all ext PSYCH: Normal mood, normal affect. SKIN: Warm, dry, wrinkled skin in b/l lower ext,edema 2+ and erythema in b/l lower ext from feet to knees improving Laboratory Results - last 24 hr 03/29/16 03/30/16 03/30/16 17:00 05:20 05:20 WBC 8.6 RBC 3.18 L Hgb 8.1 L D Hct 27.8 L MCV 87.4 MCHC 29.0 L RDW 21.3 H Plt Count 247 MPV 9.4 Neutrophils % 89.3 H Lymphocytes % 7.4 L Monocytes % 2.9 L Eosinophils % 0.0 D Basophils % 0.4 Anisocytosis 2+ Microcytosis 2+ INR 1.27 H PTT (Actin FS) 34.6 H Puncture Site ABG pH ABG pCO2 at Pt Temp ABG pO2 at Pt Temp ABG HCO3 ABG O2 Sat (Measured) ABG O2 Content ABG Base Excess Issac Test O2 Delivery Device Oxygen Flow Rate Vent Mode Vent Rate Mechanical Rate PEEP Pressure Support Vent Sodium Potassium Chloride Carbon Dioxide Anion Gap BUN Creatinine Creat Clearance w eGFR Random Glucose Lactic Acid 1.495 Calcium Magnesium Total Bilirubin AST ALT Alkaline Phosphatase Total Protein Albumin Random Vancomycin 03/30/16 03/30/16 03/30/16 05:20 05:20 07:20 WBC RBC Hgb Hct MCV MCHC RDW Plt Count MPV Neutrophils % Lymphocytes % Monocytes % Eosinophils % Basophils % Anisocytosis Microcytosis INR PTT (Actin FS) Puncture Site Right radial ABG pH 7.33 L ABG pCO2 at Pt Temp 53.2 H ABG pO2 at Pt Temp 86.4 D ABG HCO3 27.4 H ABG O2 Sat (Measured) 96.8 ABG O2 Content 10.8 L ABG Base Excess 1.7 Issac Test Positive O2 Delivery Device Mec.vent Oxygen Flow Rate 40% Vent Mode A/c Vent Rate 10 Mechanical Rate Esprit PEEP 8.0 Pressure Support Vent 400 Sodium 142 Potassium 4.6 Chloride 103 Carbon Dioxide 32 Anion Gap 7 L BUN 62 H D Creatinine 4.3 H D Creat Clearance w eGFR 13.61 Random Glucose 161 H D Lactic Acid Calcium 7.3 L Magnesium 2.1 Total Bilirubin 0.5 D AST 12 L ALT 12 Alkaline Phosphatase 99 Total Protein 5.1 L Albumin 1.9 L Random Vancomycin 15.087 03/30/16 07:55 WBC RBC Hgb Hct MCV MCHC RDW Plt Count MPV Neutrophils % Lymphocytes % Monocytes % Eosinophils % Basophils % Anisocytosis Microcytosis INR PTT (Actin FS) Puncture Site ABG pH ABG pCO2 at Pt Temp ABG pO2 at Pt Temp ABG HCO3 ABG O2 Sat (Measured) ABG O2 Content ABG Base Excess Issac Test O2 Delivery Device Oxygen Flow Rate Vent Mode Vent Rate Mechanical Rate PEEP Pressure Support Vent Sodium Potassium Chloride Carbon Dioxide Anion Gap BUN Creatinine Creat Clearance w eGFR Random Glucose Lactic Acid 1.229 Calcium Magnesium Total Bilirubin AST ALT Alkaline Phosphatase Total Protein Albumin Random Vancomycin Active Medications Generic Name Dose Route Start Last Admin Trade Name Freq PRN Reason Stop Dose Admin Acetaminophen 650 mg 03/22/16 16:39 03/29/16 02:46 Tylenol - PO 650 mg Q6H PRN Administration FEVER OR PAIN Albuterol Sulfate 1 amp 03/27/16 10:48 03/29/16 22:05 Ventolin 0.042trength) - NEB 1 amp Q6H PRN Administration SHORT OF BREATH/WHEEZING Albuterol/Ipratropium 1 amp 03/29/16 18:00 03/30/16 11:05 Duoneb - NEB 1 amp QIDR [facility] Administration Amlodipine Besylate 10 mg 03/23/16 10:00 03/30/16 10:26 Norvasc - PO Not Given DAILY [facility] Aspirin 81 mg 03/28/16 10:00 03/30/16 10:26 Ecotrin - PO Not Given DAILY [facility] Calcium Acetate 1,334 mg 03/22/16 17:30 03/30/16 10:26 Phoslo - PO Not Given TIDCM [facility] Chlorhexidine Gluconate 15 ml 03/29/16 22:00 03/30/16 10:24 Peridex - MM 15 ml BID [facility] Administration Docusate Sodium 100 mg 03/27/16 22:00 03/30/16 10:27 Colace - PO Not Given BID [facility] Duloxetine HCl 40 mg 03/26/16 10:00 03/30/16 10:27 Cymbalta - PO Not Given DAILY [facility] Epoetin Keith 20,000 unit 03/24/16 10:00 03/29/16 12:26 Procrit - SQ Not Given MoWeFr@1000 COUNTS INCLUDE 234 BEDS AT [facility] Heparin Sodium (Porcine) 5,000 unit 03/29/16 10:00 03/30/16 14:00 Heparin - SQ 5,000 unit TID [facility] Administration Propofol 100 mls @ 4.315 mls/hr 03/29/16 10:15 03/30/16 10:25 Diprivan - IVPB Not Given TITR [facility] Protocol 5 MCG/KG/MIN Pantoprazole Sodium 100 mls @ 200 mls/hr 03/29/16 18:30 03/30/16 10:23 Protonix 40mg Ivpb (Pre-Docked) IVPB 200 mls/hr DAILY [facility] Administration Aztreonam 0.5 gm/ Dextrose 50 mls @ 100 mls/hr 03/30/16 02:00 03/30/16 11:30 IVPB 100 mls/hr Q8H-IV [facility] Administration Fentanyl 500 mcg/ Dextrose 100 mls @ 5 mls/hr 03/30/16 04:45 03/30/16 10:25 IJ 0 mcg/hr TITR [facility] Titration 25 MCG/HR Methylprednisolone Sodium Succinate 40 mg 03/29/16 12:45 03/30/16 10:23 Solu-Medrol - IVPB 40 mg Q8H-IV [facility] Administration Mupirocin 1 applic 03/29/16 22:00 03/30/16 10:24 Bactroban Ointment (For Decolonization) - NS 04/03/16 21:59 1 applic BID [facility] Administration Polyethylene Glycol 17 gm 03/23/16 10:00 03/30/16 10:26 Miralax (For Daily Use) - PO Not Given DAILY [facility] Sodium Chloride 2 spray 03/22/16 16:39 [place] Nasal [place] - NS BID PRN NASAL CONGESTION Zinc Oxide/Panthenol/Vitamin E 1 applic 03/22/16 16:39 03/27/16 15:41 Balmex Cream - TP 1 applic ASDIR PRN Administration HYGEINE CBC, BMP 03/30/16 05:20 03/30/16 05:20 Microbiology 03/29/16 10:10 Body Fluid - Other Gram Stain - Final 03/28/16 19:30 Urine - Urine Clean Catch Urine Culture - Final NO GROWTH OBTAINED 03/29/16 17:30 Blood - Arterial Blood Culture - Preliminary Pending Organism 03/29/16 17:30 Blood - Arterial Blood Culture - Preliminary Pending Organism 03/29/16 10:10 Body Fluid - Other Body Fluid Culture - Preliminary Presumptive Mrsa (Pbp2a Pos) 03/28/16 17:45 Blood - Tawanda Cath Blood Culture - Preliminary Presumptive Mrsa (Pbp2a Pos) 03/28/16 16:30 Blood - Peripheral Venous Blood Culture - Preliminary Presumptive Mrsa (Pbp2a Pos) 03/28/16 16:30 Blood - Peripheral Venous Blood Culture - Preliminary Pending Organism Laboratory Tests 03/29/16 03/30/16 03/30/16 07:37 05:20 05:20 INR 1.27 H PTT (Actin FS) 34.6 H Creat Clearance w eGFR 13.61 Lactic Acid Calcium 7.3 L Magnesium 2.1 AST 12 L ALT 12 Alkaline Phosphatase 99 B-Natriuretic Peptide 43076.96 H Albumin 1.9 L Random Vancomycin 03/30/16 03/30/16 05:20 07:55 INR PTT (Actin FS) Creat Clearance w eGFR Lactic Acid 1.229 Calcium Magnesium AST ALT Alkaline Phosphatase B-Natriuretic Peptide Albumin Random Vancomycin 15.087 CXR 03/30/16: Since the prior study of 03/29/2016 at 1027 hours, the endotracheal tube and nasogastric tube persist. The right jugular line has been removed. The lungs appear better aerated though there are bibasilar changes with fluid and/or atelectasis/infiltrate. ASSESSMENT/PLAN: 75 year old male with pmh of COPD, PVD, Chronic lower ext lymphadema, CAD with stent, CHF, CKD with baseline creatinine of 1.9, nephrolithiasis presented to the ED with complaint of shortness of breath and cellulitis, patient was fount to have acute hypercapneic respiratory failure and acute renal failure. on 03/28 pt started developing fever, chills and rigors, tachycardia, was treated with vancomycin, clindamycin and atreoname. On 03/29 further developed, pt is weak, sleepy, with fever, tachycardia, tachypnea and hypotension. Severe Sepsis from b/l lower ext cellulitis or dialysis access r/o endocarditis Pt has tachycardia, hypotension, fever, rigors, elevated lactic acid, increasing white and positive blood culture with gram positive cocci in clusters Pt is being treated with Vancomycin and aztreonam F/u blood culture, MRSA from permacath, peripheral draw MRSA from body fluid from percath site urine culture, negative Improving erythema, now more pink. Also less swelling in lower ext due to dialysis Continue Aztreonam 0.5gm q8h IV Dr Armijo consulted Consider US arterial upper ext Consider Echocardiogram Acute hypercapneic and hypoxic respiratory failure with respitatory acidosis rt to COPD exacerbation and diastolic heart failure and pleural effusion and severe Sepsis Pt was intubated yesterday in ICU, Now is extubated on venti mask titrate down FiO2 Continue solumedrol IV Continue bronchodilators Dialyis per renal Permacth removed, was the source for the MRSA bacteremia s/p Thoracentesis 03/21/16 and 03/07/16 Acute on Chronic kidney Injury Continue to monitor BUN and Cr Monitor intake and output Continue Phoslo Continue Calcitriol Dialysis per renal when access placed Normocytic anemia likely due to chronic disease and renal disease Continue to monitor CBC daily Current Hgb 8.1, PRN transfusion if Hbg less than 7 of if rapid drop and massive bleeding fecal occult blood positive, pt to follow up with GI once stable Thrombocytopenia (resolved) Hypertension Currently controlled on Norvasc Hold for hypotension, severe sepsis Vitals Q4h Coronary artery disease s/p stenting on 03/2015 pt is on aspirin Po Constipation Pt is on Colace 100mg Po BID Pt is on miralax daily FEN Fluid: none Electrolytes: continue to monitor Nutrition: Diabetic low sodium diet Dvt prophylaxis: On lovenox Disposition: Keep in ICU Visit type - Emergency Visit Emergency Visit: Yes ED Registration Date: 02/18/16 Care time: The patient presented to the Emergency Department on the above date and was hospitalized for further evaluation of their emergent condition. - New Patient This patient is new to me today: No - Critical Care Critical Care patient: No - Discharge Referral Referred to [facility] Med P.C.: No
--- NOTE | 2016-03-30 18:52 | PN ---
Progress Note, Physician History of Present Illness: Pt extubated. Alert. NAD - Current Medication List Current Medications: Active Medications Acetaminophen (Tylenol -) 650 mg PO Q6H PRN PRN Reason: FEVER OR PAIN Last Admin: 03/29/16 02:46 Dose: 650 mg Albuterol Sulfate (Ventolin 0.042trength) -) 1 amp NEB Q6H PRN PRN Reason: SHORT OF BREATH/WHEEZING Last Admin: 03/29/16 22:05 Dose: 1 amp Albuterol/Ipratropium (Duoneb -) 1 amp NEB QIDR [facility] Last Admin: 03/30/16 11:05 Dose: 1 amp Amlodipine Besylate (Norvasc -) 10 mg PO DAILY [facility] Last Admin: 03/30/16 10:26 Dose: Not Given Aspirin (Ecotrin -) 81 mg PO DAILY [facility] Last Admin: 03/30/16 10:26 Dose: Not Given Calcium Acetate (Phoslo -) 1,334 mg PO TIDCM [facility] Last Admin: 03/30/16 17:21 Dose: 1,334 mg Chlorhexidine Gluconate (Peridex -) 15 ml MM BID [facility] Last Admin: 03/30/16 10:24 Dose: 15 ml Docusate Sodium (Colace -) 100 mg PO BID [facility] Last Admin: 03/30/16 10:27 Dose: Not Given Duloxetine HCl (Cymbalta -) 40 mg PO DAILY [facility] Last Admin: 03/30/16 10:27 Dose: Not Given Epoetin Keith (Procrit -) 20,000 unit SQ MoWeFr@1000 [facility] Last Admin: 03/29/16 12:26 Dose: Not Given Heparin Sodium (Porcine) (Heparin -) 5,000 unit SQ TID [facility] Last Admin: 03/30/16 14:00 Dose: 5,000 unit Propofol (Diprivan -) 100 mls @ 4.315 mls/hr IVPB TITR [facility]; 5 MCG/KG/MIN PRN Reason: Protocol Last Admin: 03/30/16 10:25 Dose: Not Given Pantoprazole Sodium (Protonix 40mg Ivpb (Pre-Docked)) 100 mls @ 200 mls/hr IVPB DAILY [facility] Last Admin: 03/30/16 10:23 Dose: 200 mls/hr Aztreonam 0.5 gm/ Dextrose 50 mls @ 100 mls/hr IVPB Q8H-IV [facility] Last Admin: 03/30/16 17:17 Dose: 100 mls/hr Fentanyl 500 mcg/ Dextrose 100 mls @ 5 mls/hr IJ TITR [facility] PRN Reason: 25 MCG/HR Last Titration: 03/30/16 10:25 Dose: 0 mcg/hr Methylprednisolone Sodium Succinate (Solu-Medrol -) 40 mg IVPB Q8H-IV [facility] Last Admin: 03/30/16 17:19 Dose: 40 mg Polyethylene Glycol (Miralax (For Daily Use) -) 17 gm PO DAILY [facility] Last Admin: 03/30/16 10:26 Dose: Not Given Sodium Chloride ([place] Nasal [place] -) 2 spray NS BID PRN PRN Reason: NASAL CONGESTION Zinc Oxide/Panthenol/Vitamin E (Balmex Cream -) 1 applic TP ASDIR PRN PRN Reason: HYGEINE Last Admin: 03/27/16 15:41 Dose: 1 applic - Objective Vital Signs: Vital Signs Temperature 99 F 03/30/16 17:23 Pulse Rate 96 H 03/30/16 17:23 Respiratory Rate 18 03/30/16 17:23 Blood Pressure 104/59 03/30/16 17:23 O2 Sat by Pulse Oximetry (%) 94 L 03/30/16 17:27 Constitutional: Yes: No Distress HENT: Yes: Atraumatic, Normocephalic Neck: Yes: Supple, Trachea Midline Cardiovascular: Yes: Regular Rate and Rhythm. No: JVD Respiratory: Yes: Diminished (bilateral) Gastrointestinal: Yes: Soft. No: Tenderness Edema: No Edema: LLE: 2+, RLE: 2+ Neurological: Yes: Alert, Oriented Labs: CBC, BMP 03/30/16 05:20 03/30/16 05:20 INR, PTT INR 1.27 (0.82-1.09) H 03/30/16 05:20 Fibrinogen 547.0 mg/dL (238-498) H 03/17/16 06:30 Problem List - Problems (1) COPD exacerbation Code(s): J44.1 - CHRONIC OBSTRUCTIVE PULMONARY DISEASE W (ACUTE) EXACERBATION (2) Acute and chronic respiratory failure ([id number]) Code(s): J96.20 - ACUTE AND CHR RESP FAILURE, UNSP W HYPOXIA OR HYPERCAPNIA Qualifiers: Qualified Code(s): J96.21 - Acute and chronic respiratory failure with hypoxia (3) Acute kidney failure Code(s): N17.9 - ACUTE KIDNEY FAILURE, UNSPECIFIED Qualifiers: Qualified Code(s): N17.9 - Acute kidney failure, unspecified (4) Chronic kidney disease (CKD) Code(s): N18.9 - CHRONIC KIDNEY DISEASE, UNSPECIFIED Qualifiers: Qualified Code(s): N18.9 - Chronic kidney disease, unspecified (5) Cellulitis Code(s): L03.90 - CELLULITIS, UNSPECIFIED (6) Hyperkalemia Code(s): E87.5 - HYPERKALEMIA (7) Arteriosclerotic heart disease (ASHD) Code(s): I25.10 - ATHSCL HEART DISEASE OF [place] CORONARY ARTERY W/O ANG PCTRS (8) Obesities, morbid Code(s): E66.01 - MORBID (SEVERE) OBESITY DUE TO EXCESS CALORIES Qualifiers: Qualified Code(s): E66.2 - Morbid (severe) obesity with alveolar hypoventilation Assessment/Plan Acute on Chronic Respiratory failure: patient exytubated Sepis-MRSA COPD Exacerbation Morbid Obesity Acute and Chronic Renal Failure ASHD CHF Plan: ICU Respirator support Antibiotics: adjust depending on results of cultures and sensitivities Inhaled bronchodilators IV steroids Dialysis when vital signs stable
--- NOTE | 2016-03-30 19:30 | PN ---
Teaching Attending Note Name of Resident: Zachery Blum ATTENDING PHYSICIAN STATEMENT I saw and evaluated the patient. I reviewed the resident's note and discussed the case with the resident. I agree with the resident's findings and plan as documented. SUBJECTIVE: patient is in ICU extubated, awake, alert, feeling much better with no nausea or vomiting OBJECTIVE: Vital Signs Temperature 99 F 03/30/16 17:23 Pulse Rate 96 H 03/30/16 17:23 Respiratory Rate 18 03/30/16 17:23 Blood Pressure 104/59 03/30/16 17:23 O2 Sat by Pulse Oximetry (%) 94 L 03/30/16 18:56 GENERAL: Patient is AAox3, HEAD: Normal with no signs of trauma. EYES: PERRL, extraocular movements intact, sclera anicteric, conjunctiva clear. ENT: Ears normal, oropharynx clear without exudates, moist mucous membranes. NECK: Trachea midline, full range of motion, supple. LUNGS: positive for wheezing ,no accessory muscle use., extubated on venti mask HEART: Regular rate and rhythm, S1, S2 without murmur, rub or gallop. ABDOMEN: Soft,obese, nontender, nondistended, normoactive bowel sounds, no guarding, no rebound, no hepatosplenomegaly, no masses. EXTREMITIES: 2+ pulses, warm, well-perfused, 3+ edema. NEUROLOGICAL:Opens eyes, earlier unresponsive, follows commands. PSYCH:AAOx3 , Alert awake SKIN: bilat. lower ext. stasis dermatitis. CBCD WBC 8.6 K/mm3 (4.0-10.0) 03/30/16 05:20 RBC 3.18 M/mm3 (4.00-5.60) L 03/30/16 05:20 Hgb 8.1 GM/dL (11.7-16.9) L D 03/30/16 05:20 Hct 27.8 % (35.4-49) L 03/30/16 05:20 MCV 87.4 fl (80-96) 03/30/16 05:20 MCHC 29.0 g/dl (32.0-35.9) L 03/30/16 05:20 RDW 21.3 % (11.9-15.9) H 03/30/16 05:20 Plt Count 247 K/MM3 (134-434) 03/30/16 05:20 MPV 9.4 fl (7.5-11.1) 03/30/16 05:20 CMP Sodium 142 mmol/L (136-145) 03/30/16 05:20 Potassium 4.6 mmol/L (3.5-5.1) 03/30/16 05:20 Chloride 103 mmol/L (98-107) 03/30/16 05:20 Carbon Dioxide 32 mmol/L (21-32) 03/30/16 05:20 Anion Gap 7 (8-16) L 03/30/16 05:20 BUN 62 mg/dL (7-18) H D 03/30/16 05:20 Creatinine 4.3 mg/dL (0.7-1.3) H D 03/30/16 05:20 Creat Clearance w eGFR 13.61 (>60) 03/30/16 05:20 Random Glucose 161 mg/dL (74-106) H D 03/30/16 05:20 Calcium 7.3 mg/dL (8.5-10.1) L 03/30/16 05:20 Total Bilirubin 0.5 mg/dL (0.2-1.0) D 03/30/16 05:20 AST 12 U/L (15-37) L 03/30/16 05:20 ALT 12 U/L (12-78) 03/30/16 05:20 Alkaline Phosphatase 99 U/L (45-117) 03/30/16 05:20 Total Protein 5.1 g/dl (6.4-8.2) L 03/30/16 05:20 Albumin 1.9 g/dl (3.4-5.0) L 03/30/16 05:20 CARDIAC ENZYMES Creatine Kinase 20 IU/L (39-308) L 03/29/16 07:37 Troponin I < 0.02 ng/ml (0.00-0.05) 03/29/16 07:37 Current Medications Generic Name Dose Route Start Last Admin Trade Name Freq PRN Reason Stop Dose Admin Acetaminophen 650 mg 03/22/16 16:39 03/29/16 02:46 Tylenol - PO 650 mg Q6H PRN Administration FEVER OR PAIN Albuterol Sulfate 1 amp 03/27/16 10:48 03/29/16 22:05 Ventolin 0.042trength) - NEB 1 amp Q6H PRN Administration SHORT OF BREATH/WHEEZING Albuterol/Ipratropium 1 amp 03/29/16 18:00 03/30/16 18:57 Duoneb - NEB 1 amp QIDR LESLEE Administration Amlodipine Besylate 10 mg 03/23/16 10:00 03/30/16 10:26 Norvasc - PO Not Given DAILY LESLEE Aspirin 81 mg 03/28/16 10:00 03/30/16 10:26 Ecotrin - PO Not Given DAILY [facility]E Calcium Acetate 1,334 mg 03/22/16 17:30 03/30/16 17:21 Phoslo - PO 1,334 mg TIDCM LESLEE Administration Chlorhexidine Gluconate 15 ml 03/29/16 22:00 03/30/16 10:24 Peridex - MM 15 ml BID LESLEE Administration Docusate Sodium 100 mg 03/27/16 22:00 03/30/16 10:27 Colace - PO Not Given BID LESLEE Duloxetine HCl 40 mg 03/26/16 10:00 03/30/16 10:27 Cymbalta - PO Not Given DAILY [facility] Epoetin Keith 20,000 unit 03/24/16 10:00 03/29/16 12:26 Procrit - SQ Not Given MoWeFr@1000 [facility] Heparin Sodium (Porcine) 5,000 unit 03/29/16 10:00 03/30/16 14:00 Heparin - SQ 5,000 unit TID LESLEE Administration Propofol 100 mls @ 4.315 mls/hr 03/29/16 10:15 03/30/16 10:25 Diprivan - IVPB Not Given TITR LESLEE Protocol 5 MCG/KG/MIN Pantoprazole Sodium 100 mls @ 200 mls/hr 03/29/16 18:30 03/30/16 10:23 Protonix 40mg Ivpb (Pre-Docked) IVPB 200 mls/hr DAILY [facility] Administration Aztreonam 0.5 gm/ Dextrose 50 mls @ 100 mls/hr 03/30/16 02:00 03/30/16 17:17 IVPB 100 mls/hr Q8H-IV L[facility]E Administration Fentanyl 500 mcg/ Dextrose 100 mls @ 5 mls/hr 03/30/16 04:45 03/30/16 10:25 IJ 0 mcg/hr TITR LESLEE Titration 25 MCG/HR Methylprednisolone Sodium Succinate 40 mg 03/29/16 12:45 03/30/16 17:19 Solu-Medrol - IVPB 40 mg Q8H-IV [facility] Administration Polyethylene Glycol 17 gm 03/23/16 10:00 03/30/16 10:26 Miralax (For Daily Use) - PO Not Given DAILY [facility] Sodium Chloride 2 spray 03/22/16 16:39 [place] Nasal [place] - NS BID PRN NASAL CONGESTION Zinc Oxide/Panthenol/Vitamin E 1 applic 03/22/16 16:39 03/27/16 15:41 Balmex Cream - TP 1 applic ASDIR PRN Administration HYGEINE Medication Instructions Recorded Acetaminophen W/ Codeine #3 1 tab PO Q6H PRN 02/18/16 [Tylenol # 3 -] Albuterol 0.083% Nebulizer Soni 1 amp NEB ASDIR PRN 02/18/16 [Ventolin 0.083% Nebulizer Soln -] Aspirin [Ecotrin] 81 mg PO DAILY 02/18/16 Duloxetine HCl 20 mg PO DAILY 02/18/16 Furosemide 20 mg PO HS 02/18/16 Furosemide 40 mg PO DAILY 02/18/16 Hydralazine HCl [Apresoline -] 50 mg PO HS 02/18/16 Prasugrel HCl [Effient] 10 mg PO DAILY 02/18/16 Prednisone 5 mg PO DAILY 02/18/16 Pregabalin [Lyrica] 25 mg PO DAILY 02/18/16 ASSESSMENT AND PLAN: 75 year-old man with a PMHx of HTN, PVD, COPD, CKD (baseline Cr 1.8), nephrolithiasis, D CHF , CAD s/p stenting in 03/23 and chronic LE lymphedema. presented with SOB and was found to have acute hypercapnic resp failure with acute renal failure . 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 s/p transfusion. cont to monitor. 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 Improved . # HTN: cont norvasc # CAD : s/p Stenting 03/23 on Asa.
[2016-03-30] MEDS ORDERED: VANCOMYCIN 750 MG in DEXTROSE 5%-WATER - 250 ML IVPB ONE (19:45)
[2016-03-30] MEDS: ACETAMINOPHEN 325 MG TABLET (FP) PO PRN (22:23)
[2016-03-31] MEDS: AZTREONAM 0.5 GM in DEXTROSE 5%-WATER - 50 ML IVPB SCH ×3 (01:48→17:18)
[2016-03-31] MEDS: methylPREDNISolone NA SUCC 40 MG/1 ML VIAL IVPB SCH ×3 (01:49→17:14)
[2016-03-31] MEDS: FENTANYL INJECTION 500 MCG in DEXTROSE 5%-WATER - 90 ML IJ SCH (06:10)
[2016-03-31] MEDS: HEPARIN NA (PORCINE) 5,000 UNITS/ML 1ML VIAL SQ SCH ×3 (06:10→21:29)
[2016-03-31] MEDS: ALBUTEROL SO4 2.5/IPRATROPIUM 0.5 INH SOL 3 ML VIAL.NEB. NEB SCH ×4 (06:20→23:33)
[2016-03-31 06:48] LABS: BASOPHIL 0.1 % (0-2.0); MCH 25.7 pg (25.7-33.7); MCHC 30.1 g/dl (32.0-35.9); MEAN CELL VOLUME 85.5 fl (80-96); MEAN PLT VOLUME 9.2 fl (7.5-11.1); NEUTROPHILS 88.3 % (42.8-82.8); PLATELET COUNT 270 K/MM3 (134-434); RDW 21.6 % (11.9-15.9)
[2016-03-31 07:13] LABS: CALCIUM 7.2 mg/dL (8.5-10.1); CREATININE 4.7 mg/dL (0.7-1.3)
[2016-03-31 07:15] LABS: BILIRUBIN,TOTAL 0.5 mg/dL (0.2-1.0); TOT PROT 5.3 g/dl (6.4-8.2)
[2016-03-31 07:39] LABS: ARTERIAL BLOOD GAS BASE EXCESS 3.9 meq/l (-2-2); ARTERIAL BLOOD GAS HCO3 28.3 meq/L (22-26); ARTERIAL BLOOD GAS pH 7.42 (7.35-7.45)
[2016-03-31 07:40] LABS: ALLENS TEST POSITIVE; ART PUNCT SITE RIGHT RADIAL; ARTERIAL BLOOD GAS PO2 76.5 mmHg (70-100); LPM/O2% 40%; PT. ON O2? YES; TYPE OF O2 VENTI MASK
--- NOTE | 2016-03-31 08:24 | PN ---
Progress Note, Physician Chief Complaint: extubated, TM 99F Echo repeated, no evidence endocarditis History of Present Illness: TELE: NSR - Current Medication List Current Medications: Active Medications Acetaminophen (Tylenol -) 650 mg PO Q6H PRN PRN Reason: FEVER OR PAIN Last Admin: 03/30/16 22:23 Dose: 650 mg Albuterol Sulfate (Ventolin 0.042trength) -) 1 amp NEB Q6H PRN PRN Reason: SHORT OF BREATH/WHEEZING Last Admin: 03/29/16 22:05 Dose: 1 amp Albuterol/Ipratropium (Duoneb -) 1 amp NEB QIDR [facility] Last Admin: 03/31/16 06:20 Dose: 1 amp Amlodipine Besylate (Norvasc -) 10 mg PO DAILY [facility] Last Admin: 03/30/16 10:26 Dose: Not Given Aspirin (Ecotrin -) 81 mg PO DAILY [facility] Last Admin: 03/30/16 10:26 Dose: Not Given Calcium Acetate (Phoslo -) 1,334 mg PO TIDCM [facility] Last Admin: 03/30/16 17:21 Dose: 1,334 mg Chlorhexidine Gluconate (Peridex -) 15 ml MM BID [facility] Last Admin: 03/30/16 21:49 Dose: Not Given Docusate Sodium (Colace -) 100 mg PO BID [facility] Last Admin: 03/30/16 21:48 Dose: Not Given Duloxetine HCl (Cymbalta -) 40 mg PO DAILY [facility] Last Admin: 03/30/16 10:27 Dose: Not Given Epoetin Keith (Procrit -) 20,000 unit SQ MoWeFr@1000 [facility] Last Admin: 03/29/16 12:26 Dose: Not Given Heparin Sodium (Porcine) (Heparin -) 5,000 unit SQ TID [facility] Last Admin: 03/31/16 06:10 Dose: 5,000 unit Propofol (Diprivan -) 100 mls @ 4.315 mls/hr IVPB TITR LESLEE; 5 MCG/KG/MIN PRN Reason: Protocol Last Admin: 03/30/16 10:25 Dose: Not Given Pantoprazole Sodium (Protonix 40mg Ivpb (Pre-Docked)) 100 mls @ 200 mls/hr IVPB DAILY [facility] Last Admin: 03/30/16 10:23 Dose: 200 mls/hr Aztreonam 0.5 gm/ Dextrose 50 mls @ 100 mls/hr IVPB Q8H-IV [facility] Last Admin: 03/31/16 01:48 Dose: 100 mls/hr Fentanyl 500 mcg/ Dextrose 100 mls @ 5 mls/hr IJ TITR LESLEE PRN Reason: 25 MCG/HR Last Admin: 03/31/16 06:10 Dose: Not Given Methylprednisolone Sodium Succinate (Solu-Medrol -) 40 mg IVPB Q8H-IV [facility] Last Admin: 03/31/16 01:49 Dose: 40 mg Polyethylene Glycol (Miralax (For Daily Use) -) 17 gm PO DAILY [facility] Last Admin: 03/30/16 10:26 Dose: Not Given Sodium Chloride ([place] Nas[place] -) 2 spray NS BID PRN PRN Reason: NASAL CONGESTION Zinc Oxide/Panthenol/Vitamin E (Balmex Cream -) 1 applic TP ASDIR PRN PRN Reason: HYGEINE Last Admin: 03/27/16 15:41 Dose: 1 applic - Objective Vital Signs: Vital Signs Temperature 97.1 F L 03/31/16 06:00 Pulse Rate 90 03/31/16 06:00 Respiratory Rate 16 03/31/16 06:00 Blood Pressure 125/62 03/31/16 06:00 O2 Sat by Pulse Oximetry (%) 93 L 03/30/16 23:50 Constitutional: Yes: No Distress Eyes: Yes: Conjunctiva Clear Cardiovascular: Yes: Regular Rate and Rhythm Respiratory: Yes: Other (decreased breath sounds b/l; no wheezing or rales.) Gastrointestinal: Yes: Soft, Abdomen, Obese Edema: Yes Edema: LLE: 2+, RLE: 2+ Neurological: Yes: Alert Labs: CBC, BMP 03/31/16 05:27 03/31/16 05:27 INR, PTT INR 1.27 (0.82-1.09) H 03/30/16 05:20 Fibrinogen 547.0 mg/dL (238-498) H 03/17/16 06:30 Microbiology 03/29/16 17:30 Blood - Arterial Blood Culture - Preliminary Pending Organism 03/29/16 17:30 Blood - Arterial Blood Culture - Preliminary Pending Organism Laboratory Tests 03/31/16 03/31/16 05:27 05:27 WBC 9.0 Hgb 7.9 L Hct 26.3 L Plt Count 270 Sodium 145 Potassium 4.3 Creatinine 4.7 H Assessment/Plan IMP: Acute on chronic hypercarbic respiratory failure Chronic COPD Sepsis, gram + Bacteremia, infected HD catheter- removed ESRD CAD REC: 1. Resp. failure: -s/p intubation, now awake and alert. -NIPPV as needed. 2. Sepsis: -gram + bacteremia; infected HD catheter removed. -Vanco -Follow repeat cultures which remain negative to date with fever resolving. -ID evaluation noted -A repeat TTE done yesterday showed no evidence of endocarditis 3. CAD: -PCI approximately one year ago -Back on ASA 81 after interval of thrombocytopenia earlier in admission 4. ESRD: -HD as per renal -replacement of HD catheter as per renal and ID
[2016-03-31] MEDS: PANTOPRAZOLE SODIUM 100 ML IVPB SCH (10:45)
[2016-03-31] MEDS: PROPOFOL 100 ML IVPB SCH (10:46)
[2016-03-31] MEDS: CHLORHEXIDINE GLUCONATE 0.12% 15ML CUP MM SCH (10:46)
[2016-03-31] MEDS: EPOETIN ALFA 20,000 UNIT/1 ML VIAL SQ SCH (10:47)
[2016-03-31 11:56] LABS: MAGNESIUM 2.6 mg/dL (1.8-2.4); PHOSPHOROUS 5.3 mg/dL (2.5-4.9)
--- NOTE | 2016-03-31 12:01 | PN ---
Progress Note (short form) - Note Progress Note: Renal Follow up for KARLOS Pt seen and examined in the ICU awake and alert no acute complaints wants to eat dialysis catheter was removed Vital Signs Temperature 97 F L 03/31/16 08:00 Pulse Rate 83 03/31/16 09:30 Respiratory Rate 17 03/31/16 08:41 Blood Pressure 117/55 03/31/16 08:00 O2 Sat by Pulse Oximetry (%) 96 03/31/16 09:30 Intake & Output 03/28/16 03/29/16 03/30/16 03/31/16 23:59 23:59 23:59 23:59 Intake Total 600 566.9 945.5 75 Output Total 675 100 Balance -75 466.9 945.5 75 Weight 262 lb 5.601 oz 261 lb 8 oz 261 lb 6 oz Gen: NAD CVS: RRR No M/R Lungs: dec BS throughout the lung rey Abd: Soft NT + Mild distension Ext: 2+ edema, legs in dressing CBC, BMP 03/31/16 05:27 03/31/16 05:27 Laboratory Tests 03/31/16 05:27 Calcium 7.2 L Phosphorus Pending Magnesium Pending Current Medications Acetaminophen (Tylenol -) 650 mg PO Q6H PRN PRN Reason: FEVER OR PAIN Last Admin: 03/30/16 22:23 Dose: 650 mg Albuterol Sulfate (Ventolin 0.042trength) -) 1 amp NEB Q6H PRN PRN Reason: SHORT OF BREATH/WHEEZING Last Admin: 03/29/16 22:05 Dose: 1 amp Albuterol/Ipratropium (Duoneb -) 1 amp NEB QIDR [facility] Last Admin: 03/31/16 11:29 Dose: 1 amp Amlodipine Besylate (Norvasc -) 10 mg PO DAILY [facility] Last Admin: 03/30/16 10:26 Dose: Not Given Aspirin (Ecotrin -) 81 mg PO DAILY [facility] Last Admin: 03/30/16 10:26 Dose: Not Given Calcium Acetate (Phoslo -) 1,334 mg PO TIDCM [facility] Last Admin: 03/30/16 17:21 Dose: 1,334 mg Chlorhexidine Gluconate (Peridex -) 15 ml MM BID [facility] Last Admin: 03/31/16 10:46 Dose: Not Given Docusate Sodium (Colace -) 100 mg PO BID [facility] Last Admin: 03/30/16 21:48 Dose: Not Given Duloxetine HCl (Cymbalta -) 40 mg PO DAILY [facility] Last Admin: 03/30/16 10:27 Dose: Not Given Epoetin Keith (Procrit -) 20,000 unit SQ MoWeFr@1000 [facility] Last Admin: 03/31/16 10:47 Dose: 20,000 unit Heparin Sodium (Porcine) (Heparin -) 5,000 unit SQ TID [facility] Last Admin: 03/31/16 06:10 Dose: 5,000 unit Propofol (Diprivan -) 100 mls @ 4.315 mls/hr IVPB TITR [facility]LE[facility]; 5 MCG/KG/MIN PRN Reason: Protocol Last Admin: 03/31/16 10:46 Dose: Not Given Pantoprazole Sodium (Protonix 40mg Ivpb (Pre-Docked)) 100 mls @ 200 mls/hr IVPB DAILY [facility] Last Admin: 03/31/16 10:45 Dose: 200 mls/hr Aztreonam 0.5 gm/ Dextrose 50 mls @ 100 mls/hr IVPB Q8H-IV [facility] Last Admin: 03/31/16 10:46 Dose: 100 mls/hr Methylprednisolone Sodium Succinate (Solu-Medrol -) 40 mg IVPB Q8H-IV [facility] Last Admin: 03/31/16 10:45 Dose: 40 mg Polyethylene Glycol (Miralax (For Daily Use) -) 17 gm PO DAILY [facility] Last Admin: 03/30/16 10:26 Dose: Not Given Sodium Chloride ([place] Nas[place] -) 2 spray NS BID PRN PRN Reason: NASAL CONGESTION Zinc Oxide/Panthenol/Vitamin E (Balmex Cream -) 1 applic TP ASDIR PRN PRN Reason: HYGEINE Last Admin: 03/27/16 15:41 Dose: 1 applic A/P 75 year old Gentleman with PMhx of CKD Stage 3 (baseline Cr 1.9), Hx of Nephrolithiasis, Hypertension, COPD, CHF, PVD, Chronic LE lymph edema who was sent into the ED from wound care for increased lethargy and decreased urination for several days with KARLOS with BUN/Cr of 115/7.2 and K of 6.5 #Acute Renal Failure requiring dialysis for volume management no 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
--- NOTE | 2016-03-31 12:08 | PN ---
Physical Exam: SUBJECTIVE: Patient seen and examined at bedside. Feels better today. No new complaint. OBJECTIVE: Vital Signs Period Temp Pulse Resp BP Sys/[place] Pulse Ox Last 24 Hr 97 F-99 F 81-100 10-19 102-125/50-70 93-96 GENERAL: The patient is awake, alert oriented, in no distress. HEAD: Normal with no signs of trauma. EYES: PERRL, extraocular movements intact, sclera anicteric, conjunctiva clear. No ptosis. ENT: Ears normal, nares patent, oropharynx clear without exudates, dry mucous membranes. NECK: Trachea midline, full range of motion, supple. LUNGS: dimished reduced b/l crackles in lung bases HEART: tachycardic, Regular rate and rhythm, S1, S2 without murmur, rub or gallop. ABDOMEN: Soft, nontender, nondistended, normoactive bowel sounds, no guarding, no rebound, no hepatosplenomegaly, no masses. EXTREMITIES: 2+ pulses, warm, well-perfused. b/l lower ext edema 2+ with mild redness, improving NEUROLOGICAL: gait not observed. Strength 5/5 in all ext PSYCH: Normal mood, normal affect. SKIN: Warm, dry, wrinkled skin in b/l lower ext, edema 2+ b/l lower ext. Erythema in b/l lower ext from feet to knees almost dissapeared. Laboratory Results - last 24 hr 03/18/16 03/31/16 03/31/16 08:10 05:27 05:27 WBC 9.0 RBC 3.07 L Hgb 7.9 L Hct 26.3 L MCV 85.5 MCHC 30.1 L RDW 21.6 H Plt Count 270 MPV 9.2 Neutrophils % 88.3 H Lymphocytes % 6.6 L Monocytes % 5.0 Eosinophils % 0.0 Basophils % 0.1 Puncture Site ABG pH ABG pCO2 at Pt Temp ABG pO2 at Pt Temp ABG HCO3 ABG O2 Sat (Measured) ABG O2 Content ABG Base Excess Issac Test O2 Delivery Device Oxygen Flow Rate Sodium Potassium Chloride Carbon Dioxide Anion Gap BUN Creatinine Creat Clearance w eGFR Random Glucose Calcium Phosphorus Magnesium Total Bilirubin AST ALT Alkaline Phosphatase Total Protein Albumin Vancomycin Trough 21.163 H* Crossmatch See Detail 03/31/16 03/31/16 03/31/16 05:27 05:30 07:10 WBC RBC Hgb Hct MCV MCHC RDW Plt Count MPV Neutrophils % Lymphocytes % Monocytes % Eosinophils % Basophils % Puncture Site Right radial ABG pH 7.42 ABG pCO2 at Pt Temp 44.6 ABG pO2 at Pt Temp 76.5 ABG HCO3 28.3 H ABG O2 Sat (Measured) 96.0 ABG O2 Content 10.4 L ABG Base Excess 3.9 H Issac Test Positive O2 Delivery Device Venti mask Oxygen Flow Rate 40% Sodium 145 Potassium 4.3 Chloride 103 Carbon Dioxide 30 Anion Gap 12 BUN 81 H D Creatinine 4.7 H Creat Clearance w eGFR 12.28 Random Glucose 195 H D Calcium 7.2 L Phosphorus 5.3 H D Cancelled Magnesium 2.6 H D Cancelled Total Bilirubin 0.5 AST 9 L D ALT 10 L Alkaline Phosphatase 98 Total Protein 5.3 L Albumin 2.0 L Vancomycin Trough Crossmatch Active Medications Generic Name Dose Route Start Last Admin Trade Name Freq PRN Reason Stop Dose Admin Acetaminophen 650 mg 03/22/16 16:39 03/30/16 22:23 Tylenol - PO 650 mg Q6H PRN Administration FEVER OR PAIN Albuterol Sulfate 1 amp 03/27/16 10:48 03/29/16 22:05 Ventolin 0.042trength) - NEB 1 amp Q6H PRN Administration SHORT OF BREATH/WHEEZING Albuterol/Ipratropium 1 amp 03/29/16 18:00 03/31/16 11:29 Duoneb - NEB 1 amp QIDR [facility]E Administration Amlodipine Besylate 10 mg 03/23/16 10:00 03/30/16 10:26 Norvasc - PO Not Given DAILY [facility] Aspirin 81 mg 03/28/16 10:00 03/30/16 10:26 Ecotrin - PO Not Given DAILY [facility] Calcium Acetate 1,334 mg 03/22/16 17:30 03/30/16 17:21 Phoslo - PO 1,334 mg TIDCM [facility]E Administration Chlorhexidine Gluconate 15 ml 03/29/16 22:00 03/31/16 10:46 Peridex - MM Not Given BID [facility] Docusate Sodium 100 mg 03/27/16 22:00 03/30/16 21:48 Colace - PO Not Given BID [facility] Duloxetine HCl 40 mg 03/26/16 10:00 03/30/16 10:27 Cymbalta - PO Not Given DAILY [facility] Epoetin Keith 20,000 unit 03/24/16 10:00 03/31/16 10:47 Procrit - SQ 20,000 unit MoWeFr@1000 [facility] Administration Heparin Sodium (Porcine) 5,000 unit 03/29/16 10:00 03/31/16 06:10 Heparin - SQ 5,000 unit TID [facility] Administration Propofol 100 mls @ 4.315 mls/hr 03/29/16 10:15 03/31/16 10:46 Diprivan - IVPB Not Given TITR [facility] Protocol 5 MCG/KG/MIN Pantoprazole Sodium 100 mls @ 200 mls/hr 03/29/16 18:30 03/31/16 10:45 Protonix 40mg Ivpb (Pre-Docked) IVPB 200 mls/hr DAILY [facility] Administration Aztreonam 0.5 gm/ Dextrose 50 mls @ 100 mls/hr 03/30/16 02:00 03/31/16 10:46 IVPB 100 mls/hr Q8H-IV [facility] Administration Vancomycin HCl 1,000 mg/ 250 mls @ 250 mls/hr 04/01/16 08:00 Dextrose IVPB 04/01/16 08:59 ONCE ONE Methylprednisolone Sodium Succinate 40 mg 03/29/16 12:45 03/31/16 10:45 Solu-Medrol - IVPB 40 mg Q8H-IV [facility] Administration Polyethylene Glycol 17 gm 03/23/16 10:00 03/30/16 10:26 Miralax (For Daily Use) - PO Not Given DAILY [facility] Sodium Chloride 2 spray 03/22/16 16:39 [place] Nasal [place] - NS BID PRN NASAL CONGESTION Zinc Oxide/Panthenol/Vitamin E 1 applic 03/22/16 16:39 03/27/16 15:41 Balmex Cream - TP 1 applic ASDIR PRN Administration HYGEINE ASSESSMENT/PLAN: Visit type - Emergency Visit Emergency Visit: Yes ED Registration Date: 02/18/16 Care time: The patient presented to the Emergency Department on the above date and was hospitalized for further evaluation of their emergent condition. - New Patient This patient is new to me today: No - Critical Care Critical Care patient: Yes Total Critical Care Time (in minutes): 32 Critical Care Statement: The care of this patient involved high complexity decision making to prevent further life threatening deterioration of the patient 's condition and/or to evalute & treat vital organ system(s) failure or risk of failure.
--- NOTE | 2016-03-31 12:32 | PN ---
Teaching Attending Note Name of Resident: Lambert Ventura ATTENDING PHYSICIAN STATEMENT I saw and evaluated the patient. I reviewed the resident's note and discussed the case with the resident. I agree with the resident's findings and plan as documented. SUBJECTIVE: Patient seen and examined in the ICU. Remains extubated. Mildly tachypneic on 50% VM. NIPPV Overnight. Awake and alert. Intake & Output 03/28/16 03/29/16 03/30/16 03/31/16 23:59 23:59 23:59 23:59 Intake Total 600 566.9 945.5 75 Output Total 675 100 Balance -75 466.9 945.5 75 Weight 262 lb 5.601 oz 261 lb 8 oz 261 lb 6 oz Last Vital Signs Temp Pulse Resp BP Pulse Ox 97 F L 83 17 117/55 96 03/31/16 08:00 03/31/16 09:30 03/31/16 08:41 03/31/16 08:00 03/31/16 09:30 Active Medications Acetaminophen (Tylenol -) 650 mg PO Q6H PRN PRN Reason: FEVER OR PAIN Last Admin: 03/30/16 22:23 Dose: 650 mg Albuterol Sulfate (Ventolin 0.042trength) -) 1 amp NEB Q6H PRN PRN Reason: SHORT OF BREATH/WHEEZING Last Admin: 03/29/16 22:05 Dose: 1 amp Albuterol/Ipratropium (Duoneb -) 1 amp NEB QIDR [facility] Last Admin: 03/31/16 11:29 Dose: 1 amp Amlodipine Besylate (Norvasc -) 10 mg PO DAILY [facility] Last Admin: 03/30/16 10:26 Dose: Not Given Aspirin (Ecotrin -) 81 mg PO DAILY [facility] Last Admin: 03/30/16 10:26 Dose: Not Given Calcium Acetate (Phoslo -) 1,334 mg PO TIDCM [facility] Last Admin: 03/30/16 17:21 Dose: 1,334 mg Chlorhexidine Gluconate (Peridex -) 15 ml MM BID [facility] Last Admin: 03/31/16 10:46 Dose: Not Given Docusate Sodium (Colace -) 100 mg PO BID [facility] Last Admin: 03/30/16 21:48 Dose: Not Given Duloxetine HCl (Cymbalta -) 40 mg PO DAILY [facility] Last Admin: 03/30/16 10:27 Dose: Not Given Epoetin Keith (Procrit -) 20,000 unit SQ MoWeFr@1000 [facility] Last Admin: 03/31/16 10:47 Dose: 20,000 unit Heparin Sodium (Porcine) (Heparin -) 5,000 unit SQ TID [facility] Last Admin: 03/31/16 06:10 Dose: 5,000 unit Propofol (Diprivan -) 100 mls @ 4.315 mls/hr IVPB TITR [facility]; 5 MCG/KG/MIN PRN Reason: Protocol Last Admin: 03/31/16 10:46 Dose: Not Given Pantoprazole Sodium (Protonix 40mg Ivpb (Pre-Docked)) 100 mls @ 200 mls/hr IVPB DAILY [facility] Last Admin: 03/31/16 10:45 Dose: 200 mls/hr Aztreonam 0.5 gm/ Dextrose 50 mls @ 100 mls/hr IVPB Q8H-IV [facility] Last Admin: 03/31/16 10:46 Dose: 100 mls/hr Vancomycin HCl 1,000 mg/ (Dextrose) 250 mls @ 250 mls/hr IVPB ONCE ONE Stop: 04/01/16 08:59 Methylprednisolone Sodium Succinate (Solu-Medrol -) 40 mg IVPB Q8H-IV [facility] Last Admin: 03/31/16 10:45 Dose: 40 mg Polyethylene Glycol (Miralax (For Daily Use) -) 17 gm PO DAILY [facility] Last Admin: 03/30/16 10:26 Dose: Not Given Sodium Chloride ([place] Nasal [place] -) 2 spray NS BID PRN PRN Reason: NASAL CONGESTION Zinc Oxide/Panthenol/Vitamin E (Balmex Cream -) 1 applic TP ASDIR PRN PRN Reason: HYGEINE Last Admin: 03/27/16 15:41 Dose: 1 applic Gen: Extubated, awake and alert Heart: S1S2 Lung: decreased breath sounds at the bases, scattered bilateral rhonchi Abd: soft, nontender EXt: + edema raymond RUE CXR: Increasing pulmonary vascular congestion, pleural effusions Laboratory Results - last 24 hr 03/18/16 03/31/16 03/31/16 08:10 05:27 05:27 WBC 9.0 RBC 3.07 L Hgb 7.9 L Hct 26.3 L MCV 85.5 MCHC 30.1 L RDW 21.6 H Plt Count 270 MPV 9.2 Neutrophils % 88.3 H Lymphocytes % 6.6 L Monocytes % 5.0 Eosinophils % 0.0 Basophils % 0.1 Puncture Site ABG pH ABG pCO2 at Pt Temp ABG pO2 at Pt Temp ABG HCO3 ABG O2 Sat (Measured) ABG O2 Content ABG Base Excess Issac Test O2 Delivery Device Oxygen Flow Rate Sodium Potassium Chloride Carbon Dioxide Anion Gap BUN Creatinine Creat Clearance w eGFR Random Glucose Calcium Phosphorus Magnesium Total Bilirubin AST ALT Alkaline Phosphatase Total Protein Albumin Vancomycin Trough 21.163 H* Crossmatch See Detail 03/31/16 03/31/16 03/31/16 05:27 05:30 07:10 WBC RBC Hgb Hct MCV MCHC RDW Plt Count MPV Neutrophils % Lymphocytes % Monocytes % Eosinophils % Basophils % Puncture Site Right radial ABG pH 7.42 ABG pCO2 at Pt Temp 44.6 ABG pO2 at Pt Temp 76.5 ABG HCO3 28.3 H ABG O2 Sat (Measured) 96.0 ABG O2 Content 10.4 L ABG Base Excess 3.9 H Issac Test Positive O2 Delivery Device Venti mask Oxygen Flow Rate 40% Sodium 145 Potassium 4.3 Chloride 103 Carbon Dioxide 30 Anion Gap 12 BUN 81 H D Creatinine 4.7 H Creat Clearance w eGFR 12.28 Random Glucose 195 H D Calcium 7.2 L Phosphorus 5.3 H D Cancelled Magnesium 2.6 H D Cancelled Total Bilirubin 0.5 AST 9 L D ALT 10 L Alkaline Phosphatase 98 Total Protein 5.3 L Albumin 2.0 L Vancomycin Trough Crossmatch ASSESSMENT AND PLAN: Acute on Chronic Hypercapneic and Hypoxic Respiratory Failure Likely Permacath Infection MRSA Bacteremia Severe Sepsis Acute on Chronic Renal Failure requiring HD Acute COPD Exacerbation Lactic Acidosis Acute on Chronic LV Diastolic Heart Failure CAD Morbid Obesity JOY/OHS - VM O2 alternating with NIPPV - Streoid taper - inhaled bronchodilators standing and PRN - ABX - HD per renal (will need access) - monitor urine output, creatinine - DVT/GI prophylaxis - continue ICU monitoring Dr Vasquez CCTime 35" Problem List - Problems (1) Acute kidney failure Code(s): N17.9 - ACUTE KIDNEY FAILURE, UNSPECIFIED Qualifiers: Qualified Code(s): N17.9 - Acute kidney failure, unspecified (2) COPD exacerbation Code(s): J44.1 - CHRONIC OBSTRUCTIVE PULMONARY DISEASE W (ACUTE) EXACERBATION (3) Hyperkalemia Code(s): E87.5 - HYPERKALEMIA (4) Anxiety and depression Code(s): F41.9 - ANXIETY DISORDER, UNSPECIFIED F32.9 - MAJOR DEPRESSIVE DISORDER, SINGLE EPISODE, UNSPECIFIED (5) Aortic aneurysm, intrathoracic Code(s): I71.2 - THORACIC AORTIC ANEURYSM, WITHOUT RUPTURE (6) Arteriosclerotic heart disease (ASHD) Code(s): I25.10 - ATHSCL HEART DISEASE OF [place] CORONARY ARTERY W/O ANG PCTRS (7) CRI (chronic renal insufficiency) Code(s): N18.9 - CHRONIC KIDNEY DISEASE, UNSPECIFIED (8) Chronic kidney disease (CKD) Code(s): N18.9 - CHRONIC KIDNEY DISEASE, UNSPECIFIED Qualifiers: Qualified Code(s): N18.9 - Chronic kidney disease, unspecified (9) Diabetes Code(s): E11.9 - TYPE 2 DIABETES MELLITUS WITHOUT COMPLICATIONS (10) Diastolic CHF Code(s): I50.30 - UNSPECIFIED DIASTOLIC (CONGESTIVE) HEART FAILURE (11) History of coronary artery stent placement Code(s): Z95.5 - PRESENCE OF CORONARY ANGIOPLASTY IMPLANT AND GRAFT (12) Hyperlipidemia Code(s): E78.5 - HYPERLIPIDEMIA, UNSPECIFIED (13) Hypertension Code(s): I10 - ESSENTIAL (PRIMARY) HYPERTENSION (14) Non-alcoholic fatty liver disease Code(s): K76.0 - FATTY (CHANGE OF) LIVER, NOT ELSEWHERE CLASSIFIED (15) Noncompliance with CPAP treatment Code(s): Z91.14 - PATIENT'S OTHER NONCOMPLIANCE WITH MEDICATION REGIMEN (16) Obesities, morbid Code(s): E66.01 - MORBID (SEVERE) OBESITY DUE TO EXCESS CALORIES Qualifiers: Qualified Code(s): E66.2 - Morbid (severe) obesity with alveolar hypoventilation
--- NOTE | 2016-03-31 12:44 | CONSULT ---
Admitting History and Physical - Primary Care Physician PCP: Tenzin Carter - Admission History of Present Illness: Per EMR: "02/18/16 14:10> - General History Source: Patient Exam Limitations: No Limitations - History of Present Illness Initial Comments: The patient is a 75-year-old man, accompanied by , with a significant past medical history of hypertension, hypercholesterolemia, coronary artery disease s /p stents x2, COPD (on 2L at home) and CHF who presents to the emergency department via walk-in with complaints of increasing shortness of breath for 3 days. No fever, chills, generalized weakness, cough. Patient is ambulatory with a cane and denies any dyspnea on exertion. Patient reports he his 2L O2 helps alleviate his shortness of breath. No chest pain, headache,dizziness, lightheadedness, back pain. Patient also reports chronic leg swelling and pain. Patient notes that his swelling has been increasing. He admits his Lasix dosage has increased from 40 mg q.d to 40 mg q.a.m followed by an additional 20 mg at night. Patient admits non compliance with his nightly dose , as he tends to forget. Patient also reports foot pain. He is unable to describe the nature of the pain but states it is associated with his wound. Patients pain is exacerbated when walking. Patient reported compliance to the wound care center, as he went today and his dressing was changed. As per patients , she expresses concern as the patient's urine was noted to be dark brown last night. Patient denies any urinary symptoms. He denies abdominal pain,nausea, vomiting, diarrhea, hematochezia, melena." "Patient was fount to have acute hypercapneic respiratory failure and acute renal failure. on 03/28/16 pt started developing fever, chills and rigors, tachycardia, was treated with vancomycin, clindamycin and atreoname. On 03/29 further developed, pt is weak, sleepy, with fever, tachycardia, tachypnea and hypotension." Intubated 03/29-Extubated 03/30 Pt noted to cough repeatedly on thin liquid. Pt desats quickly of ventimask, likely adversely affecting PO tolerance with increased RR. - Past Medical History [employer]TER [employer]PER[employer]: Yes: Peripheral Neuropathy Cardiovascular: Yes: CAD, CHF (diastolic), HTN, Hyperlipdemia Pulmonary: Yes: COPD, O2 Dependent, Sleep Apnea Renal/: Yes: Renal Inusuff, Renal Calculi Heme/Onc: Yes: Anemia Dermatology: Yes: Cellulitis (Cellulitis lower extremiites during patient's hospitalization in February) - Past Surgical History Past Surgical History: Yes: None - Smoking History Smoking history: Former smoker Have you smoked in the past 12 months: No Aproximately how many cigarettes per day: 0 If you are a former smoker, when did you quit?: 6 years - Alcohol/Substance Use Hx Alcohol Use: No History of Substance Use: reports: None - Social History ADL: Independent 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 C/O regurgitation. GERD precautions.) - General Mental Status: Alert and Oriented, Awake and Alert, Able to Follow Commands Attention: Intact Ability to Follow Directions: Excellent Head/Neck Control: WFL - Hearing Hearing: Functional Hearing: Normal Hearing Aide: No Speech Evaluation - Communication Primary Language: [place] Communication: Yes: Within Normal Limits Oral Expression Ability: Yes: No Impairment - Speech Production Able to Make Needs Known: Yes: WNL Intelligibility: Yes: WNL - Speech Characteristics Voice Loudness: Normal Voice Pitch: Yes: Normal Voice Phonatory-based Quality: Yes: Normal Speech Pattern: Normal Nasal Resonance: Normal Articulation: Yes: Precise Rate of Speech: Intact - Language/Auditory Comprehension Follows: Yes: 2 Stage Simple Commands - Language/Verbal Expression Able to Respond to Simple Queries: Yes: WNL Able to Communicate Wants and Needs: Yes: WNL Functional Communication Status: Yes: WNL - Memory/Perception CHCF Memory: Yes: WNL Short Term Memory: Yes: WNL - Swallow Evaluation/Bedside Assessment Dentition: Yes: Edentulous Facial Symmetry at Rest: Symmetrical Facial Symmetry on Retraction: Symmetrical Facial Movement: Controlled Against Resistance Opening: Normal Against Resistance Closing: Normal Pucker Lips: Normal Smile: Normal Lingual Movement: Normal Lingual Speed of Movement: Normal Lingual Movement Strgth Against Opposition: Normal Velopharyngeal Movement: Normal Laryngeal Movement: Able to Palpate Rate of Intake: WFL Bolus Size: WFL Labial Seal: WFL Chewing: WFL Oral Prep Time: WFL A-P Transit: WFL Pocketing: None Timing of Swallow: WFL Coughing/Throat Clear: No Change in Voice: No Recommendations - Speech Evaluation, Impression/Plan Impression: Intubated 03/29-Extubated 03/30. Pt noted to cough repeatedly on thin liquid. Pt desats quickly of ventimask, likely adversely affecting PO tolerance with increased RR. Voice is euphonic. 01/25/15 MBS(-) aspiration. C/ O regurgitation. GERD precautions. Suspect coughing on thin liquid when off VM with rapid desat/increased RR. Weightloss reported during long hospitalization. - Dysphagia Impressions/Plan Dysphagia Impressions: Risk of Aspiration *Silent aspiration: cannot be R/O at bedside Dysphagia Treatment Plan: Elevate HOB during feed, Other (Upright 1 hr after meals. GERD precautions.) - Recommendations Diet Consistency: Dysphagia Pureed (Do not feed when SOB/o2 sat below 90. Several small meals, if neccessary, thoughout the day.) Medication Administration: Crushed with applesauce Liquids: Thin Liquids (Thin liquids via straw through venti mask. If cough, nectar thick liquids.) Supplement: Ensure, Magic Cup, Other (RD consult re: therapeutic diet/ supplements.)
--- NOTE | 2016-03-31 13:33 | PN ---
Progress Note, Physician History of Present Illness: patient looks better extubated stable no complaints - Current Medication List Current Medications: Active Medications Acetaminophen (Tylenol -) 650 mg PO Q6H PRN PRN Reason: FEVER OR PAIN Last Admin: 03/30/16 22:23 Dose: 650 mg Albuterol Sulfate (Ventolin 0.042trength) -) 1 amp NEB Q6H PRN PRN Reason: SHORT OF BREATH/WHEEZING Last Admin: 03/29/16 22:05 Dose: 1 amp Albuterol/Ipratropium (Duoneb -) 1 amp NEB QIDR [facility] Last Admin: 03/31/16 11:29 Dose: 1 amp Amlodipine Besylate (Norvasc -) 10 mg PO DAILY [facility] Last Admin: 03/30/16 10:26 Dose: Not Given Aspirin (Ecotrin -) 81 mg PO DAILY [facility] Last Admin: 03/30/16 10:26 Dose: Not Given Calcium Acetate (Phoslo -) 1,334 mg PO TIDCM [facility] Last Admin: 03/30/16 17:21 Dose: 1,334 mg Chlorhexidine Gluconate (Peridex -) 15 ml MM BID [facility] Last Admin: 03/31/16 10:46 Dose: Not Given Docusate Sodium (Colace -) 100 mg PO BID [facility] Last Admin: 03/30/16 21:48 Dose: Not Given Duloxetine HCl (Cymbalta -) 40 mg PO DAILY [facility] Last Admin: 03/30/16 10:27 Dose: Not Given Epoetin Keith (Procrit -) 20,000 unit SQ MoWeFr@1000 [facility] Last Admin: 03/31/16 10:47 Dose: 20,000 unit Heparin Sodium (Porcine) (Heparin -) 5,000 unit SQ TID [facility] Last Admin: 03/31/16 06:10 Dose: 5,000 unit Propofol (Diprivan -) 100 mls @ 4.315 mls/hr IVPB TITR [facility]; 5 MCG/KG/MIN PRN Reason: Protocol Last Admin: 03/31/16 10:46 Dose: Not Given Pantoprazole Sodium (Protonix 40mg Ivpb (Pre-Docked)) 100 mls @ 200 mls/hr IVPB DAILY [facility] Last Admin: 03/31/16 10:45 Dose: 200 mls/hr Aztreonam 0.5 gm/ Dextrose 50 mls @ 100 mls/hr IVPB Q8H-IV [facility] Last Admin: 03/31/16 10:46 Dose: 100 mls/hr Vancomycin HCl (Vancomycin (Pre-Docked)) 250 mls @ 166.667 mls/hr IVPB ONCE ONE Stop: 04/01/16 09:29 Methylprednisolone Sodium Succinate (Solu-Medrol -) 40 mg IVPB Q8H-IV [facility] Last Admin: 03/31/16 10:45 Dose: 40 mg Polyethylene Glycol (Miralax (For Daily Use) -) 17 gm PO DAILY [facility] Last Admin: 03/30/16 10:26 Dose: Not Given Sodium Chloride ([place] Nasal [place] -) 2 spray NS BID PRN PRN Reason: NASAL CONGESTION Zinc Oxide/Panthenol/Vitamin E (Balmex Cream -) 1 applic TP ASDIR PRN PRN Reason: HYGEINE Last Admin: 03/27/16 15:41 Dose: 1 applic - Objective Vital Signs: Vital Signs Temperature 97 F L 03/31/16 08:00 Pulse Rate 89 03/31/16 12:00 Respiratory Rate 18 03/31/16 12:00 Blood Pressure 119/67 03/31/16 12:00 O2 Sat by Pulse Oximetry (%) 96 03/31/16 09:30 Constitutional: Yes: No Distress, Calm Cardiovascular: Yes: Regular Rate and Rhythm Respiratory: Yes: On Nasal O2, Poor Air Entry, Rhonchi Gastrointestinal: Yes: Normal Bowel Sounds, Soft Musculoskeletal: Yes: Other Extremities: Yes: Other Edema: LLE: 2+, RLE: 2+ Neurological: Yes: Alert, Oriented Psychiatric: Yes: Alert Labs: CBC, BMP 03/31/16 05:27 03/31/16 05:27 INR, PTT INR 1.27 (0.82-1.09) H 03/30/16 05:20 Fibrinogen 547.0 mg/dL (238-498) H 03/17/16 06:30 Assessment/Plan 75 year-old man with a PMH of HTN, PVD, COPD, CKD (baseline Cr 1.9), nephrolithiasis, and chronic LE lymphedema. Admitted in acute renal failure. Acute on chronic renal failure Hyperkalemia Sepsis s Hypertension Peripheral vascular disease Hypercarbic respiratory failure COPD bilateral cellulitis of the legs rsv lung infection pleural effusion anemia fevers gm positive bacteremia mrsa bacteremia plan cellulitis improving still positive blood cx recx send await for the report cc time 40 min
--- NOTE | 2016-03-31 13:35 | PN ---
Progress Note, Physician History of Present Illness: continues to remain stable no new issues no events doing well - Current Medication List Current Medications: Active Medications Acetaminophen (Tylenol -) 650 mg PO Q6H PRN PRN Reason: FEVER OR PAIN Last Admin: 03/30/16 22:23 Dose: 650 mg Albuterol Sulfate (Ventolin 0.042trength) -) 1 amp NEB Q6H PRN PRN Reason: SHORT OF BREATH/WHEEZING Last Admin: 03/29/16 22:05 Dose: 1 amp Albuterol/Ipratropium (Duoneb -) 1 amp NEB QIDR [facility] Last Admin: 03/31/16 11:29 Dose: 1 amp Amlodipine Besylate (Norvasc -) 10 mg PO DAILY [facility] Last Admin: 03/30/16 10:26 Dose: Not Given Aspirin (Ecotrin -) 81 mg PO DAILY [facility] Last Admin: 03/30/16 10:26 Dose: Not Given Calcium Acetate (Phoslo -) 1,334 mg PO TIDCM [facility] Last Admin: 03/30/16 17:21 Dose: 1,334 mg Chlorhexidine Gluconate (Peridex -) 15 ml MM BID [facility] Last Admin: 03/31/16 10:46 Dose: Not Given Docusate Sodium (Colace -) 100 mg PO BID [facility] Last Admin: 03/30/16 21:48 Dose: Not Given Duloxetine HCl (Cymbalta -) 40 mg PO DAILY [facility] Last Admin: 03/30/16 10:27 Dose: Not Given Epoetin Keith (Procrit -) 20,000 unit SQ MoWeFr@1000 [facility] Last Admin: 03/31/16 10:47 Dose: 20,000 unit Heparin Sodium (Porcine) (Heparin -) 5,000 unit SQ TID [facility] Last Admin: 03/31/16 06:10 Dose: 5,000 unit Propofol (Diprivan -) 100 mls @ 4.315 mls/hr IVPB TITR [facility]; 5 MCG/KG/MIN PRN Reason: Protocol Last Admin: 03/31/16 10:46 Dose: Not Given Pantoprazole Sodium (Protonix 40mg Ivpb (Pre-Docked)) 100 mls @ 200 mls/hr IVPB DAILY [facility] Last Admin: 03/31/16 10:45 Dose: 200 mls/hr Aztreonam 0.5 gm/ Dextrose 50 mls @ 100 mls/hr IVPB Q8H-IV [facility] Last Admin: 03/31/16 10:46 Dose: 100 mls/hr Vancomycin HCl (Vancomycin (Pre-Docked)) 250 mls @ 166.667 mls/hr IVPB ONCE ONE Stop: 04/01/16 09:29 Methylprednisolone Sodium Succinate (Solu-Medrol -) 40 mg IVPB Q8H-IV [facility] Last Admin: 03/31/16 10:45 Dose: 40 mg Polyethylene Glycol (Miralax (For Daily Use) -) 17 gm PO DAILY [facility] Last Admin: 03/30/16 10:26 Dose: Not Given Sodium Chloride ([place] Nasal [place] -) 2 spray NS BID PRN PRN Reason: NASAL CONGESTION Zinc Oxide/Panthenol/Vitamin E (Balmex Cream -) 1 applic TP ASDIR PRN PRN Reason: HYGEINE Last Admin: 03/27/16 15:41 Dose: 1 applic - Objective Vital Signs: Vital Signs Temperature 97 F L 03/31/16 08:00 Pulse Rate 89 03/31/16 12:00 Respiratory Rate 18 03/31/16 12:00 Blood Pressure 119/67 03/31/16 12:00 O2 Sat by Pulse Oximetry (%) 96 03/31/16 09:30 Constitutional: Yes: No Distress, Calm Cardiovascular: Yes: Regular Rate and Rhythm Respiratory: Yes: Regular, Other Gastrointestinal: Yes: Normal Bowel Sounds, Soft Breast(s): Yes: Other Musculoskeletal: Yes: Other Neurological: Yes: Alert, Oriented Psychiatric: Yes: Alert Labs: CBC, BMP 03/31/16 05:27 03/31/16 05:27 INR, PTT INR 1.27 (0.82-1.09) H 03/30/16 05:20 Fibrinogen 547.0 mg/dL (238-498) H 03/17/16 06:30 Assessment/Plan 75 year-old man with a PMH of HTN, PVD, COPD, CKD (baseline Cr 1.9), nephrolithiasis, and chronic LE lymphedema. Admitted in acute renal failure. Acute on chronic renal failure Hyperkalemia Sepsis s Hypertension Peripheral vascular disease Hypercarbic respiratory failure COPD bilateral cellulitis of the legs rsv lung infection pleural effusion anemia fevers gm positive bacteremia mrsa bacteremia plan cellulitis improving repeat blood cx pending plan for dialysis will have to wait and see blood cx echo results noted await for the report cc time 40 min
[2016-03-31] MEDS: ACETAMINOPHEN 325 MG TABLET (FP) PO PRN (14:13)
--- NOTE | 2016-03-31 15:53 | PN ---
Physical Exam: SUBJECTIVE: Patient seen and examined Pt is feeling well today , in a pleasant mood Pt denies shortness of breath, fever, chills, chest pain, palpitation, nausea, vomiting, lightheadedness. OBJECTIVE: Vital Signs Period Temp Pulse Resp BP Sys/[place] Pulse Ox Last 24 Hr 97 F-99 F 81-100 10-19 102-125/50-70 93-96 ENERAL: The patient is awake, alert oriented, in no distress. HEAD: Normal with no signs of trauma. EYES: PERRL, extraocular movements intact, sclera anicteric, conjunctiva clear. No ptosis. ENT: Ears normal, nares patent, oropharynx clear without exudates, dry mucous membranes. NECK: Trachea midline, full range of motion, supple. LUNGS: dimished reduced b/l crackles in lung bases HEART: tachycardic, Regular rate and rhythm, S1, S2 without murmur, rub or gallop. ABDOMEN: Soft, nontender, nondistended, normoactive bowel sounds, no guarding, no rebound, no hepatosplenomegaly, no masses. EXTREMITIES: 2+ pulses, warm, well-perfused. b/l lower ext edema 2+ with mild redness, improving NEUROLOGICAL: gait not observed. Strength 5/5 in all ext PSYCH: Normal mood, normal affect. SKIN: Warm, dry, wrinkled skin in b/l lower ext, edema 2+ b/l lower ext. Erythema in b/l lower ext from feet to knees almost dissapeared. Laboratory Results - last 24 hr 03/18/16 03/31/16 03/31/16 08:10 05:27 05:27 WBC 9.0 RBC 3.07 L Hgb 7.9 L Hct 26.3 L MCV 85.5 MCHC 30.1 L RDW 21.6 H Plt Count 270 MPV 9.2 Neutrophils % 88.3 H Lymphocytes % 6.6 L Monocytes % 5.0 Eosinophils % 0.0 Basophils % 0.1 Puncture Site ABG pH ABG pCO2 at Pt Temp ABG pO2 at Pt Temp ABG HCO3 ABG O2 Sat (Measured) ABG O2 Content ABG Base Excess Issac Test O2 Delivery Device Oxygen Flow Rate Sodium Potassium Chloride Carbon Dioxide Anion Gap BUN Creatinine Creat Clearance w eGFR Random Glucose Calcium Phosphorus Magnesium Total Bilirubin AST ALT Alkaline Phosphatase Total Protein Albumin Vancomycin Trough 21.163 H* Crossmatch See Detail 03/31/16 03/31/16 03/31/16 05:27 05:30 07:10 WBC RBC Hgb Hct MCV MCHC RDW Plt Count MPV Neutrophils % Lymphocytes % Monocytes % Eosinophils % Basophils % Puncture Site Right radial ABG pH 7.42 ABG pCO2 at Pt Temp 44.6 ABG pO2 at Pt Temp 76.5 ABG HCO3 28.3 H ABG O2 Sat (Measured) 96.0 ABG O2 Content 10.4 L ABG Base Excess 3.9 H Issac Test Positive O2 Delivery Device Venti mask Oxygen Flow Rate 40% Sodium 145 Potassium 4.3 Chloride 103 Carbon Dioxide 30 Anion Gap 12 BUN 81 H D Creatinine 4.7 H Creat Clearance w eGFR 12.28 Random Glucose 195 H D Calcium 7.2 L Phosphorus 5.3 H D Cancelled Magnesium 2.6 H D Cancelled Total Bilirubin 0.5 AST 9 L D ALT 10 L Alkaline Phosphatase 98 Total Protein 5.3 L Albumin 2.0 L Vancomycin Trough Crossmatch Active Medications Generic Name Dose Route Start Last Admin Trade Name Freq PRN Reason Stop Dose Admin Acetaminophen 650 mg 03/22/16 16:39 03/31/16 14:13 Tylenol - PO 650 mg Q6H PRN Administration FEVER OR PAIN Albuterol Sulfate 1 amp 03/27/16 10:48 03/29/16 22:05 Ventolin 0.042trength) - NEB 1 amp Q6H PRN Administration SHORT OF BREATH/WHEEZING Albuterol/Ipratropium 1 amp 03/29/16 18:00 03/31/16 11:29 Duoneb - NEB 1 amp QIDR LESLEE Administration Amlodipine Besylate 10 mg 03/23/16 10:00 03/30/16 10:26 Norvasc - PO Not Given DAILY LESLEE Aspirin 81 mg 03/28/16 10:00 03/30/16 10:26 Ecotrin - PO Not Given DAILY LESLEE Calcium Acetate 1,334 mg 03/22/16 17:30 03/30/16 17:21 Phoslo - PO 1,334 mg TIDCM LESLEE Administration Chlorhexidine Gluconate 15 ml 03/29/16 22:00 03/31/16 10:46 Peridex - MM Not Given BID LESLEE Docusate Sodium 100 mg 03/27/16 22:00 03/30/16 21:48 Colace - PO Not Given BID LESLEE Duloxetine HCl 40 mg 03/26/16 10:00 03/30/16 10:27 Cymbalta - PO Not Given DAILY LESLEE Epoetin Keith 20,000 unit 03/24/16 10:00 03/31/16 10:47 Procrit - SQ 20,000 unit MoWeFr@1000 LESLEE Administration Heparin Sodium (Porcine) 5,000 unit 03/29/16 10:00 03/31/16 14:00 Heparin - SQ 5,000 unit TID LESLEE Administration Propofol 100 mls @ 4.315 mls/hr 03/29/16 10:15 03/31/16 10:46 Diprivan - IVPB Not Given TITR LESLEE Protocol 5 MCG/KG/MIN Pantoprazole Sodium 100 mls @ 200 mls/hr 03/29/16 18:30 03/31/16 10:45 Protonix 40mg Ivpb (Pre-Docked) IVPB 200 mls/hr DAILY LESLEE Administration Aztreonam 0.5 gm/ Dextrose 50 mls @ 100 mls/hr 03/30/16 02:00 03/31/16 10:46 IVPB 100 mls/hr Q8H-IV LESLEE Administration Vancomycin HCl 250 mls @ 166.667 mls/hr 04/01/16 08:00 Vancomycin (Pre-Docked) IVPB 04/01/16 09:29 ONCE ONE Methylprednisolone Sodium Succinate 40 mg 03/29/16 12:45 03/31/16 10:45 Solu-Medrol - IVPB 40 mg Q8H-IV LESLEE Administration Polyethylene Glycol 17 gm 03/23/16 10:00 03/30/16 10:26 Miralax (For Daily Use) - PO Not Given DAILY LESLEE Sodium Chloride 2 spray 03/22/16 16:39 [place] Nasal [place] - NS BID PRN NASAL CONGESTION Zinc Oxide/Panthenol/Vitamin E 1 applic 03/22/16 16:39 03/27/16 15:41 Balmex Cream - TP 1 applic ASDIR PRN Administration HYGEINE CBC, BMP 03/31/16 05:27 03/31/16 05:27 ASSESSMENT/PLAN: 75 year old male with pmh of COPD, PVD, Chronic lower ext lymphadema, CAD with stent, CHF, CKD with baseline creatinine of 1.9, nephrolithiasis presented to the ED with complaint of shortness of breath and cellulitis, patient was fount to have acute hypercapneic respiratory failure and acute renal failure. on 03/28 pt started developing fever, chills and rigors, tachycardia, was treated with vancomycin, clindamycin and atreoname. On 03/29 further developed, pt was weak, sleepy, with fever, tachycardia, tachypnea and hypotension. Severe Sepsis from b/l lower ext cellulitis or dialysis access r/o endocarditis Pt has tachycardia, hypotension, fever, rigors, elevated lactic acid, increasing white and positive blood culture with gram positive cocci in clusters blood culture, MRSA from permacath, peripheral draw Pt is being treated with Vancomycin and aztreonam urine culture, negative Dr Armijo consulted US doppler lower ext showed no DVT Echocardiogram Improving erythema, now more pink. Also less swelling in lower ext due to dialysis Acute hypercapneic and hypoxic respiratory failure with respitatory acidosis rt to COPD exacerbation and diastolic heart failure and pleural effusion and severe Sepsis Pt was intubated 03/29/16 in ICU, Now is extubated on 03/30/16 on nasal cannula 4 liters titrate down FiO2 Continue solumedrol IV Continue bronchodilators Dialyis per renal Permacth removed, was the source for the MRSA bacteremia s/p Thoracentesis 03/21/16 and 03/07/16 Acute on Chronic kidney Injury Continue to monitor BUN and Cr Monitor intake and output Continue Phoslo Continue Calcitriol Dialysis per renal when access placed Normocytic anemia likely due to chronic disease and renal disease Continue to monitor CBC daily Current Hgb 7.9, PRN transfusion if Hbg less than 7 of if rapid drop and massive bleeding fecal occult blood positive, pt to follow up with GI once stable Thrombocytopenia (resolved) Hypertension Currently controlled on Norvasc Hold for hypotension, severe sepsis Vitals Q4h Coronary artery disease s/p stenting on 03/2015 pt is on aspirin Po Constipation Pt is on Colace 100mg Po BID Pt is on miralax daily FEN Fluid: none Electrolytes: continue to monitor Nutrition: Diabetic low sodium diet Dvt prophylaxis: On heparin SQ Disposition: Keep in ICU Visit type - Emergency Visit Emergency Visit: Yes ED Registration Date: 02/18/16 Care time: The patient presented to the Emergency Department on the above date and was hospitalized for further evaluation of their emergent condition. - New Patient This patient is new to me today: No - Critical Care Critical Care patient: Yes Total Critical Care Time (in minutes): 35 Critical Care Statement: The care of this patient involved high complexity decision making to prevent further life threatening deterioration of the patient 's condition and/or to evalute & treat vital organ system(s) failure or risk of failure.
--- NOTE | 2016-03-31 15:55 | PN ---
Progress Note, Physician History of Present Illness: Alert. NAD Remains extubated with decreased dyspnea - Current Medication List Current Medications: Active Medications Acetaminophen (Tylenol -) 650 mg PO Q6H PRN PRN Reason: FEVER OR PAIN Last Admin: 03/31/16 14:13 Dose: 650 mg Albuterol Sulfate (Ventolin 0.042trength) -) 1 amp NEB Q6H PRN PRN Reason: SHORT OF BREATH/WHEEZING Last Admin: 03/29/16 22:05 Dose: 1 amp Albuterol/Ipratropium (Duoneb -) 1 amp NEB QIDR [facility] Last Admin: 03/31/16 11:29 Dose: 1 amp Amlodipine Besylate (Norvasc -) 10 mg PO DAILY [facility] Last Admin: 03/30/16 10:26 Dose: Not Given Aspirin (Ecotrin -) 81 mg PO DAILY [facility] Last Admin: 03/30/16 10:26 Dose: Not Given Calcium Acetate (Phoslo -) 1,334 mg PO TIDCM [facility] Last Admin: 03/30/16 17:21 Dose: 1,334 mg Chlorhexidine Gluconate (Peridex -) 15 ml MM BID [facility] Last Admin: 03/31/16 10:46 Dose: Not Given Docusate Sodium (Colace -) 100 mg PO BID [facility] Last Admin: 03/30/16 21:48 Dose: Not Given Duloxetine HCl (Cymbalta -) 40 mg PO DAILY [facility] Last Admin: 03/30/16 10:27 Dose: Not Given Epoetin Keith (Procrit -) 20,000 unit SQ MoWeFr@1000 [facility] Last Admin: 03/31/16 10:47 Dose: 20,000 unit Heparin Sodium (Porcine) (Heparin -) 5,000 unit SQ TID [facility] Last Admin: 03/31/16 14:00 Dose: 5,000 unit Propofol (Diprivan -) 100 mls @ 4.315 mls/hr IVPB TITR LESLEE; 5 MCG/KG/MIN PRN Reason: Protocol Last Admin: 03/31/16 10:46 Dose: Not Given Pantoprazole Sodium (Protonix 40mg Ivpb (Pre-Docked)) 100 mls @ 200 mls/hr IVPB DAILY [facility] Last Admin: 03/31/16 10:45 Dose: 200 mls/hr Aztreonam 0.5 gm/ Dextrose 50 mls @ 100 mls/hr IVPB Q8H-IV [facility]E Last Admin: 03/31/16 10:46 Dose: 100 mls/hr Vancomycin HCl (Vancomycin (Pre-Docked)) 250 mls @ 166.667 mls/hr IVPB ONCE ONE Stop: 04/01/16 09:29 Methylprednisolone Sodium Succinate (Solu-Medrol -) 40 mg IVPB Q8H-IV [facility]E Last Admin: 03/31/16 10:45 Dose: 40 mg Polyethylene Glycol (Miralax (For Daily Use) -) 17 gm PO DAILY [facility] Last Admin: 03/30/16 10:26 Dose: Not Given Sodium Chloride ([place] Nasal [place] -) 2 spray NS BID PRN PRN Reason: NASAL CONGESTION Zinc Oxide/Panthenol/Vitamin E (Balmex Cream -) 1 applic TP ASDIR PRN PRN Reason: HYGEINE Last Admin: 03/27/16 15:41 Dose: 1 applic - Objective Vital Signs: Vital Signs Temperature 97 F L 03/31/16 08:00 Pulse Rate 89 03/31/16 12:00 Respiratory Rate 18 03/31/16 12:00 Blood Pressure 119/67 03/31/16 12:00 O2 Sat by Pulse Oximetry (%) 96 03/31/16 13:46 Constitutional: Yes: No Distress HENT: Yes: Atraumatic, Normocephalic Neck: Yes: Supple, Trachea Midline Cardiovascular: Yes: Regular Rate and Rhythm, JVD Respiratory: Yes: CTA Bilaterally Gastrointestinal: Yes: Soft. No: Tenderness Edema: Yes Edema: LLE: 1+, RLE: 1+ Neurological: Yes: Alert, Oriented Labs: CBC, BMP 03/31/16 05:27 03/31/16 05:27 INR, PTT INR 1.27 (0.82-1.09) H 03/30/16 05:20 Fibrinogen 547.0 mg/dL (238-498) H 03/17/16 06:30 - ....Imaging Chest X-ray: Report Reviewed, Image Reviewed (bilaterl pleural effusions) Problem List - Problems (1) COPD exacerbation Code(s): J44.1 - CHRONIC OBSTRUCTIVE PULMONARY DISEASE W (ACUTE) EXACERBATION (2) Acute and chronic respiratory failure ([id number]) Code(s): J96.20 - ACUTE AND CHR RESP FAILURE, UNSP W HYPOXIA OR HYPERCAPNIA Qualifiers: Qualified Code(s): J96.21 - Acute and chronic respiratory failure with hypoxia (3) Acute kidney failure Code(s): N17.9 - ACUTE KIDNEY FAILURE, UNSPECIFIED Qualifiers: Qualified Code(s): N17.9 - Acute kidney failure, unspecified (4) Chronic kidney disease (CKD) Code(s): N18.9 - CHRONIC KIDNEY DISEASE, UNSPECIFIED Qualifiers: Qualified Code(s): N18.9 - Chronic kidney disease, unspecified (5) Cellulitis Code(s): L03.90 - CELLULITIS, UNSPECIFIED (6) Hyperkalemia Code(s): E87.5 - HYPERKALEMIA (7) Arteriosclerotic heart disease (ASHD) Code(s): I25.10 - ATHSCL HEART DISEASE OF [place] CORONARY ARTERY W/O ANG PCTRS (8) Obesities, morbid Code(s): E66.01 - MORBID (SEVERE) OBESITY DUE TO EXCESS CALORIES Qualifiers: Qualified Code(s): E66.2 - Morbid (severe) obesity with alveolar hypoventilation Assessment/Plan Acute on Chronic Respiratory failure: patient extubated Sepis-MRSA COPD Exacerbation Acute on Chronic Respiratory Failure Morbid Obesity Acute and Chronic Renal Failure ASHD CHF-developing increased sized pleural effusions Plan: ICU BiPAP PRN Antibiotic per drug sensitivities Inhaled bronchodilators IV steroids taper as medical condition stabilizes Dialysis when vital signs stable
[2016-03-31] MEDS: CALCIUM ACETATE 667 MG CAPSULE (FP) PO SCH ×3 (17:14→17:16)
[2016-03-31] MEDS: amLODIPine BESYLATE 10 MG TABLET (FP) PO SCH (17:16)
[2016-03-31] MEDS: ASPIRIN COATED 81 MG TABLET.EC PO SCH (17:17)
[2016-03-31] MEDS: DOCUSATE SODIUM 100 MG CAPSULE (FP) PO SCH ×2 (17:17→22:00)
[2016-03-31] MEDS: DULoxetine HCL 20 MG CAPSULE.DR (FP) PO SCH (17:17)
[2016-03-31] MEDS: POLYETHYLENE GLYCOL 3350 119 GM BTL PO SCH (17:17)
--- NOTE | 2016-03-31 22:44 | PN ---
Teaching Attending Note Name of Resident: Zachery Blum ATTENDING PHYSICIAN STATEMENT I saw and evaluated the patient. I reviewed the resident's note and discussed the case with the resident. I agree with the resident's findings and plan as documented. SUBJECTIVE: Patient is feeling better, with no acute distress, off bipap, patient is in ICU. OBJECTIVE: Vital Signs Temperature 98 F 03/31/16 18:00 Pulse Rate 99 H 03/31/16 20:00 Respiratory Rate 18 03/31/16 20:00 Blood Pressure 87/54 03/31/16 20:00 O2 Sat by Pulse Oximetry (%) 92 L 03/31/16 17:09 GENERAL: Patient is AAox3, HEAD: Normal with no signs of trauma. EYES: PERRL, extraocular movements intact, sclera anicteric, conjunctiva clear. ENT: Ears normal, oropharynx clear without exudates, moist mucous membranes. NECK: Trachea midline, full range of motion, supple. LUNGS: positive for wheezing ,no accessory muscle use., extubated on NC HEART: Regular rate and rhythm, S1, S2 without murmur, rub or gallop. ABDOMEN: Soft,obese, nontender, nondistended, normoactive bowel sounds, no guarding, no rebound, no hepatosplenomegaly, no masses. EXTREMITIES: 2+ pulses, warm, 2+ edema. NEUROLOGICAL:CN 2-12 grossly intact . PSYCH:AAOx3 , Alert awake SKIN: bilat. lower ext. stasis dermatitis. CBCD WBC 9.0 K/mm3 (4.0-10.0) 03/31/16 05:27 RBC 3.07 M/mm3 (4.00-5.60) L 03/31/16 05:27 Hgb 7.9 GM/dL (11.7-16.9) L 03/31/16 05:27 Hct 26.3 % (35.4-49) L 03/31/16 05:27 MCV 85.5 fl (80-96) 03/31/16 05:27 MCHC 30.1 g/dl (32.0-35.9) L 03/31/16 05:27 RDW 21.6 % (11.9-15.9) H 03/31/16 05:27 Plt Count 270 K/MM3 (134-434) 03/31/16 05:27 MPV 9.2 fl (7.5-11.1) 03/31/16 05:27 CMP Sodium 145 mmol/L (136-145) 03/31/16 05:27 Potassium 4.3 mmol/L (3.5-5.1) 03/31/16 05:27 Chloride 103 mmol/L (98-107) 03/31/16 05:27 Carbon Dioxide 30 mmol/L (21-32) 03/31/16 05:27 Anion Gap 12 (8-16) 03/31/16 05:27 BUN 81 mg/dL (7-18) H D 03/31/16 05:27 Creatinine 4.7 mg/dL (0.7-1.3) H 03/31/16 05:27 Creat Clearance w eGFR 12.28 (>60) 03/31/16 05:27 Random Glucose 195 mg/dL (74-106) H D 03/31/16 05:27 Calcium 7.2 mg/dL (8.5-10.1) L 03/31/16 05:27 Total Bilirubin 0.5 mg/dL (0.2-1.0) 03/31/16 05:27 AST 9 U/L (15-37) L D 03/31/16 05:27 ALT 10 U/L (12-78) L 03/31/16 05:27 Alkaline Phosphatase 98 U/L (45-117) 03/31/16 05:27 Total Protein 5.3 g/dl (6.4-8.2) L 03/31/16 05:27 Albumin 2.0 g/dl (3.4-5.0) L 03/31/16 05:27 CARDIAC ENZYMES Creatine Kinase 20 IU/L (39-308) L 03/29/16 07:37 Troponin I < 0.02 ng/ml (0.00-0.05) 03/29/16 07:37 Current Medications Generic Name Dose Route Start Last Admin Trade Name Freq PRN Reason Stop Dose Admin Acetaminophen 650 mg 03/22/16 16:39 03/31/16 14:13 Tylenol - PO 650 mg Q6H PRN Administration FEVER OR PAIN Albuterol Sulfate 1 amp 03/27/16 10:48 03/29/16 22:05 Ventolin 0.042trength) - NEB 1 amp Q6H PRN Administration SHORT OF BREATH/WHEEZING Albuterol/Ipratropium 1 amp 03/29/16 18:00 03/31/16 17:30 Duoneb - NEB 1 amp QIDR LESLEE Administration Amlodipine Besylate 10 mg 03/23/16 10:00 03/31/16 17:16 Norvasc - PO Not Given DAILY LESLEE Aspirin 81 mg 03/28/16 10:00 03/31/16 17:17 Ecotrin - PO Not Given DAILY LESLEE Calcium Acetate 1,334 mg 03/22/16 17:30 03/31/16 17:16 Phoslo - PO Not Given TIDCM LESLEE Docusate Sodium 100 mg 03/27/16 22:00 03/31/16 17:17 Colace - PO Not Given BID LESLEE Duloxetine HCl 40 mg 03/26/16 10:00 03/31/16 17:17 Cymbalta - PO Not Given DAILY LESLEE Epoetin Keith 20,000 unit 03/24/16 10:00 03/31/16 10:47 Procrit - SQ 20,000 unit MoWeFr@1000 LESLEE Administration Heparin Sodium (Porcine) 5,000 unit 03/29/16 10:00 03/31/16 21:29 Heparin - SQ 5,000 unit TID LESLEE Administration Pantoprazole Sodium 100 mls @ 200 mls/hr 03/29/16 18:30 03/31/16 10:45 Protonix 40mg Ivpb (Pre-Docked) IVPB 200 mls/hr DAILY [facility]E Administration Aztreonam 0.5 gm/ Dextrose 50 mls @ 100 mls/hr 03/30/16 02:00 03/31/16 17:18 IVPB 100 mls/hr Q8H-IV LESLEE Administration Vancomycin HCl 250 mls @ 166.667 mls/hr 04/01/16 08:00 Vancomycin (Pre-Docked) IVPB 04/01/16 09:29 ONCE ONE Methylprednisolone Sodium Succinate 40 mg 03/29/16 12:45 03/31/16 17:14 Solu-Medrol - IVPB 40 mg Q8H-IV LESLEE Administration Polyethylene Glycol 17 gm 03/23/16 10:00 03/31/16 17:17 Miralax (For Daily Use) - PO Not Given DAILY [facility] Sodium Chloride 2 spray 03/22/16 16:39 [place] Nasal [place] - NS BID PRN NASAL CONGESTION Zinc Oxide/Panthenol/Vitamin E 1 applic 03/22/16 16:39 03/27/16 15:41 Balmex Cream - TP 1 applic ASDIR PRN Administration HYGEINE US doppler lower ext :no DVT ASSESSMENT AND PLAN: 75 year-old man with a PMHx of HTN, PVD, COPD, CKD (baseline Cr 1.8), nephrolithiasis, D CHF , CAD s/p stenting in 03/23 and chronic LE lymphedema. presented with SOB and was found to have acute hypercapnic resp failure with acute renal failure . # Severe Sepsis from right sided permacath s/p removal , echo is negative for endocarditis blood culture, MRSA from permacath, on Vancomycin , urine culture, negative Dr Szymanski ID on the case. #s/p Acute hypercapnic respiratory failure s/p Intubation/ Extubation due to COPD exacerbation on VM mask 30% # Acute Diastolic heart failure and pleural effusions s/p R and L thoracocentesis ;off steroids # ESRD on HD further management per nephro on cacitriol and phoslo; patient has no access for HD at this time. # Cellultis of LE : improved on Antibiotics continue on vancomycin # Normocytic anemia. s/p transfusion. cont to monitor. Transfuse PRN # s/p Thrombocytopenia: improved # HTN: cont norvasc # CAD : s/p Stenting 03/23 on Asa. DVT Px; heparin
[2016-04-01] MEDS ORDERED: PT OWN MED DRAWER 7, Y5N ONE ×2 (00:57→09:57)
[2016-04-01] MEDS: AZTREONAM 0.5 GM in DEXTROSE 5%-WATER - 50 ML IVPB SCH ×3 (01:24→17:58)
[2016-04-01] MEDS: methylPREDNISolone NA SUCC 40 MG/1 ML VIAL IVPB SCH ×3 (01:24→22:00)
[2016-04-01] MEDS: SODIUM CHLORIDE NASAL SPRAY 44 ML BOTTLE NS PRN ×2 (05:00→22:00)
[2016-04-01] MEDS: ALBUTEROL SO4 2.5/IPRATROPIUM 0.5 INH SOL 3 ML VIAL.NEB. NEB SCH ×3 (06:00→17:54)
[2016-04-01] MEDS: HEPARIN NA (PORCINE) 5,000 UNITS/ML 1ML VIAL SQ SCH ×3 (06:19→22:00)
[2016-04-01] MEDS: ZINC OXIDE/PANTHENOL/VITAMIN E 56 GM TUBE TP PRN ×2 (06:21→22:00)
[2016-04-01] MEDS ORDERED: VANCOMYCIN 1 GRAM (PRE-DOCKED) 250 ML IVPB ONE (08:00)
[2016-04-01 08:49] LABS: MCH 26.1 pg (25.7-33.7); MCHC 30.8 g/dl (32.0-35.9); MEAN CELL VOLUME 84.7 fl (80-96); MEAN PLT VOLUME 9.1 fl (7.5-11.1); PLATELET COUNT 261 K/MM3 (134-434); RDW 21.3 % (11.9-15.9); WHITE BLOOD COUNT 7.9 K/mm3 (4.0-10.0)
--- NOTE | 2016-04-01 08:50 | PN ---
Progress Note, Physician Chief Complaint: sleeping no distress TELE: NSR with frequent APCS, some w/ aberrant conduction Blood cultures remain positive - Current Medication List Current Medications: Active Medications Acetaminophen (Tylenol -) 650 mg PO Q6H PRN PRN Reason: FEVER OR PAIN Last Admin: 03/31/16 14:13 Dose: 650 mg Albuterol Sulfate (Ventolin 0.042trength) -) 1 amp NEB Q6H PRN PRN Reason: SHORT OF BREATH/WHEEZING Last Admin: 03/29/16 22:05 Dose: 1 amp Albuterol/Ipratropium (Duoneb -) 1 amp NEB QIDR [facility] Last Admin: 04/01/16 06:00 Dose: 1 amp Amlodipine Besylate (Norvasc -) 10 mg PO DAILY [facility] Last Admin: 03/31/16 17:16 Dose: Not Given Aspirin (Ecotrin -) 81 mg PO DAILY [facility] Last Admin: 03/31/16 17:17 Dose: Not Given Calcium Acetate (Phoslo -) 1,334 mg PO TIDCM [facility] Last Admin: 03/31/16 17:16 Dose: Not Given Docusate Sodium (Colace -) 100 mg PO BID [facility] Last Admin: 03/31/16 22:00 Dose: 100 mg Duloxetine HCl (Cymbalta -) 40 mg PO DAILY [facility] Last Admin: 03/31/16 17:17 Dose: Not Given Epoetin Keith (Procrit -) 20,000 unit SQ MoWeFr@1000 [facility] Last Admin: 03/31/16 10:47 Dose: 20,000 unit Heparin Sodium (Porcine) (Heparin -) 5,000 unit SQ TID [facility] Last Admin: 04/01/16 06:19 Dose: 5,000 unit Pantoprazole Sodium (Protonix 40mg Ivpb (Pre-Docked)) 100 mls @ 200 mls/hr IVPB DAILY [facility] Last Admin: 03/31/16 10:45 Dose: 200 mls/hr Aztreonam 0.5 gm/ Dextrose 50 mls @ 100 mls/hr IVPB Q8H-IV [facility] Last Admin: 04/01/16 01:24 Dose: 100 mls/hr Vancomycin HCl (Vancomycin (Pre-Docked)) 250 mls @ 166.667 mls/hr IVPB ONCE ONE Stop: 04/01/16 09:29 Methylprednisolone Sodium Succinate (Solu-Medrol -) 40 mg IVPB Q8H-IV [facility] Last Admin: 04/01/16 01:24 Dose: 40 mg Polyethylene Glycol (Miralax (For Daily Use) -) 17 gm PO DAILY [facility] Last Admin: 03/31/16 17:17 Dose: Not Given Sodium Chloride ([place] Nasal [place] -) 2 spray NS BID PRN PRN Reason: NASAL CONGESTION Last Admin: 04/01/16 05:00 Dose: 2 sprays Zinc Oxide/Panthenol/Vitamin E (Balmex Cream -) 1 applic TP ASDIR PRN PRN Reason: HYGEINE Last Admin: 04/01/16 06:21 Dose: 1 applic - Objective Vital Signs: Vital Signs Temperature 97.4 F L 04/01/16 06:00 Pulse Rate 91 H 04/01/16 06:00 Respiratory Rate 20 04/01/16 06:00 Blood Pressure 135/59 04/01/16 06:00 O2 Sat by Pulse Oximetry (%) 94 L 03/31/16 22:00 Constitutional: Yes: No Distress Cardiovascular: Yes: Regular Rate and Rhythm Respiratory: Yes: Other (decreased breath sounds bilaterally, no rales or wheezing) Gastrointestinal: Yes: Soft, Abdomen, Obese Edema: Yes Edema: LLE: 2+, RLE: 2+ Neurological: Yes: Alert, Oriented Labs: INR, PTT INR 1.27 (0.82-1.09) H 03/30/16 05:20 Fibrinogen 547.0 mg/dL (238-498) H 03/17/16 06:30 Microbiology 03/29/16 10:10 Body Fluid - Other Gram Stain - Final 03/29/16 10:10 Body Fluid - Other Anaerobic Culture - Final Mr S Aureus NO ANAEROBES WERE ISOLATED 03/28/16 17:45 Blood - [place] Cath Blood Culture - Final Mr S Aureus 03/28/16 16:30 Blood - Peripheral Venous Blood Culture - Final Mr S Aureus 03/28/16 16:30 Blood - Peripheral Venous Blood Culture - Final Mr S Aureus 03/31/16 05:27 Blood - Peripheral Venous Blood Culture - Preliminary Presumptive Mrsa (Pbp2a Pos) Pending Organism#2 03/31/16 05:27 Blood - Peripheral Venous Blood Culture - Preliminary Pending Organism Pending Organism#2 03/29/16 17:30 Blood - Arterial Blood Culture - Preliminary Presumptive Mrsa (Pbp2a Pos) Laboratory Tests 04/01/16 04/01/16 05:00 05:00 WBC Pending RBC Pending Hgb Pending Plt Count Pending Potassium Pending Creatinine Pending Assessment/Plan IMP: Acute on chronic hypercarbic respiratory failure Chronic COPD Sepsis, gram + Bacteremia, infected HD catheter- removed ESRD CAD REC: 1. Resp. failure: -s/p intubation, now awake and alert. -NIPPV as needed. 2. Sepsis: -gram + bacteremia; infected HD catheter removed.Cultures remain + -Abx as per ID -A repeat TTE showed no evidence of endocarditis 3. CAD: -PCI approximately one year ago -Back on ASA 81 after interval of thrombocytopenia earlier in admission 4. ESRD: -HD as per renal -replacement of HD catheter as per renal and ID
[2016-04-01] MEDS: CALCIUM ACETATE 667 MG CAPSULE (FP) PO SCH ×3 (08:52→17:58)
[2016-04-01 08:54] LABS: ALBUMIN 2.2 g/dl (3.4-5.0); BILIRUBIN,TOTAL 0.4 mg/dL (0.2-1.0); CALCIUM 7.1 mg/dL (8.5-10.1); CREATININE 4.2 mg/dL (0.7-1.3); PHOSPHOROUS 4.3 mg/dL (2.5-4.9); TOT PROT 5.6 g/dl (6.4-8.2)
--- NOTE | 2016-04-01 09:28 | PN ---
Progress Note (short form) - Note Progress Note: PULMONARY/CCM Pt seen and examined in the ICU. Breathing better today. Did not require BiPAP overnight. No fevers recorded. Cultures yesterday still growing MRSA. Last Vital Signs Temp Pulse Resp BP Pulse Ox 97.4 F L 91 H 20 135/59 94 L 04/01/16 06:00 04/01/16 06:00 04/01/16 06:00 04/01/16 06:00 03/31/16 22:00 Intake & Output 03/29/16 03/30/16 03/31/16 04/01/16 23:59 23:59 23:59 23:59 Intake Total 566.9 945.5 773 214 Output Total 100 750 400 Balance 466.9 945.5 23 -186 Weight 262 lb 5.601 oz 261 lb 8 oz 261 lb 6 oz 261 lb Gen: less tachypneic Heart: RRR Lung: decreased breath sounds at the bases Abd: soft, nontender, obese Ext: + edema CBC, BMP 04/01/16 05:00 04/01/16 05:00 Active Medications Acetaminophen (Tylenol -) 650 mg PO Q6H PRN PRN Reason: FEVER OR PAIN Last Admin: 03/31/16 14:13 Dose: 650 mg Albuterol Sulfate (Ventolin 0.042trength) -) 1 amp NEB Q6H PRN PRN Reason: SHORT OF BREATH/WHEEZING Last Admin: 03/29/16 22:05 Dose: 1 amp Albuterol/Ipratropium (Duoneb -) 1 amp NEB QIDR [facility] Last Admin: 04/01/16 06:00 Dose: 1 amp Amlodipine Besylate (Norvasc -) 10 mg PO DAILY [facility] Last Admin: 03/31/16 17:16 Dose: Not Given Aspirin (Ecotrin -) 81 mg PO DAILY [facility] Last Admin: 03/31/16 17:17 Dose: Not Given Calcium Acetate (Phoslo -) 1,334 mg PO TIDCM [facility] Last Admin: 04/01/16 08:52 Dose: 1,334 mg Docusate Sodium (Colace -) 100 mg PO BID [facility] Last Admin: 03/31/16 22:00 Dose: 100 mg Duloxetine HCl (Cymbalta -) 40 mg PO DAILY [facility] Last Admin: 03/31/16 17:17 Dose: Not Given Epoetin Keith (Procrit -) 20,000 unit SQ MoWeFr@1000 [facility] Last Admin: 03/31/16 10:47 Dose: 20,000 unit Heparin Sodium (Porcine) (Heparin -) 5,000 unit SQ TID [facility] Last Admin: 04/01/16 06:19 Dose: 5,000 unit Pantoprazole Sodium (Protonix 40mg Ivpb (Pre-Docked)) 100 mls @ 200 mls/hr IVPB DAILY [facility] Last Admin: 03/31/16 10:45 Dose: 200 mls/hr Aztreonam 0.5 gm/ Dextrose 50 mls @ 100 mls/hr IVPB Q8H-IV [facility] Last Admin: 04/01/16 01:24 Dose: 100 mls/hr Vancomycin HCl (Vancomycin (Pre-Docked)) 250 mls @ 166.667 mls/hr IVPB ONCE ONE Stop: 04/01/16 09:29 Methylprednisolone Sodium Succinate (Solu-Medrol -) 40 mg IVPB Q8H-IV [facility] Last Admin: 04/01/16 01:24 Dose: 40 mg Polyethylene Glycol (Miralax (For Daily Use) -) 17 gm PO DAILY [facility] Last Admin: 03/31/16 17:17 Dose: Not Given Sodium Chloride ([place] Nasal [place] -) 2 spray NS BID PRN PRN Reason: NASAL CONGESTION Last Admin: 04/01/16 05:00 Dose: 2 sprays Zinc Oxide/Panthenol/Vitamin E (Balmex Cream -) 1 applic TP ASDIR PRN PRN Reason: HYGEINE Last Admin: 04/01/16 06:21 Dose: 1 applic A/P Acute on Chronic Hypercapneic and Hypoxic Respiratory Failure Likely Permacath Infection MRSA Bacteremia Severe Sepsis Acute on Chronic Renal Failure requiring HD Acute COPD Exacerbation Lactic Acidosis resolved Acute on Chronic LV Diastolic Heart Failure CAD Morbid Obesity JOY/OHS - taper medrol to q12h - inhaled bronchodilators standing and PRN - vanco by level - f/u pending cultures - repeat cultures in AM, if persistent positive blood, may need to consider YIMI - HD per renal, ideally would like to postpone HD access until cultures clear, no emergent indication for HD today - monitor urine output, creatinine - DVT/GI prophylaxis - continue ICU monitoring
[2016-04-01] MEDS: PANTOPRAZOLE SODIUM 100 ML IVPB SCH (10:15)
[2016-04-01] MEDS: amLODIPine BESYLATE 10 MG TABLET (FP) PO SCH (10:15)
[2016-04-01] MEDS: DULoxetine HCL 20 MG CAPSULE.DR (FP) PO SCH (10:16)
[2016-04-01] MEDS: DOCUSATE SODIUM 100 MG CAPSULE (FP) PO SCH ×2 (10:17→22:00)
--- NOTE | 2016-04-01 10:17 | PN ---
Progress Note, Physician Chief Complaint: Patient seen in ICU Seems comfortable. Clifford catheter draining clear urine. No Chest pain. Maintains good urinary out put. No diarrhea or constipation. Massive pedal edema persists. No chest pain or shortness of breath. - Current Medication List Current Medications: Active Medications Acetaminophen (Tylenol -) 650 mg PO Q6H PRN PRN Reason: FEVER OR PAIN Last Admin: 03/31/16 14:13 Dose: 650 mg Albuterol Sulfate (Ventolin 0.042trength) -) 1 amp NEB Q6H PRN PRN Reason: SHORT OF BREATH/WHEEZING Last Admin: 03/29/16 22:05 Dose: 1 amp Albuterol/Ipratropium (Duoneb -) 1 amp NEB QIDR [facility] Last Admin: 04/01/16 06:00 Dose: 1 amp Amlodipine Besylate (Norvasc -) 10 mg PO DAILY [facility] Last Admin: 03/31/16 17:16 Dose: Not Given Aspirin (Ecotrin -) 81 mg PO DAILY [facility] Last Admin: 03/31/16 17:17 Dose: Not Given Calcium Acetate (Phoslo -) 1,334 mg PO TIDCM [facility] Last Admin: 04/01/16 08:52 Dose: 1,334 mg Docusate Sodium (Colace -) 100 mg PO BID [facility] Last Admin: 03/31/16 22:00 Dose: 100 mg Duloxetine HCl (Cymbalta -) 40 mg PO DAILY [facility] Last Admin: 03/31/16 17:17 Dose: Not Given Epoetin Keith (Procrit -) 20,000 unit SQ MoWeFr@1000 [facility] Last Admin: 03/31/16 10:47 Dose: 20,000 unit Heparin Sodium (Porcine) (Heparin -) 5,000 unit SQ TID [facility] Last Admin: 04/01/16 06:19 Dose: 5,000 unit Pantoprazole Sodium (Protonix 40mg Ivpb (Pre-Docked)) 100 mls @ 200 mls/hr IVPB DAILY [facility] Last Admin: 03/31/16 10:45 Dose: 200 mls/hr Aztreonam 0.5 gm/ Dextrose 50 mls @ 100 mls/hr IVPB Q8H-IV [facility] Last Admin: 04/01/16 01:24 Dose: 100 mls/hr Vancomycin HCl (Vancomycin (Pre-Docked)) 250 mls @ 166.667 mls/hr IVPB ONCE ONE Stop: 04/01/16 09:29 Methylprednisolone Sodium Succinate (Solu-Medrol -) 40 mg IVPB BID [facility] Polyethylene Glycol (Miralax (For Daily Use) -) 17 gm PO DAILY [facility] Last Admin: 03/31/16 17:17 Dose: Not Given Sodium Chloride ([place] Nasal [place] -) 2 spray NS BID PRN PRN Reason: NASAL CONGESTION Last Admin: 04/01/16 05:00 Dose: 2 sprays Zinc Oxide/Panthenol/Vitamin E (Balmex Cream -) 1 applic TP ASDIR PRN PRN Reason: HYGEINE Last Admin: 04/01/16 06:21 Dose: 1 applic - Objective Vital Signs: Vital Signs Temperature 97.4 F L 04/01/16 06:00 Pulse Rate 91 H 04/01/16 06:00 Respiratory Rate 20 04/01/16 06:00 Blood Pressure 135/59 04/01/16 06:00 O2 Sat by Pulse Oximetry (%) 94 L 03/31/16 22:00 Constitutional: Yes: Well Nourished, Calm, Anxious Eyes: Yes: WNL HENT: Yes: WNL Respiratory: Yes: WNL, Diminished, Dullness Gastrointestinal: Yes: WNL, Normal Bowel Sounds, Hemorrhoids Musculoskeletal: Yes: WNL Edema: Yes Edema: LLE: 3+, RLE: 3+ Neurological: Yes: WNL, Alert, Oriented Labs: CBC, BMP 04/01/16 05:00 04/01/16 05:00 INR, PTT INR 1.27 (0.82-1.09) H 03/30/16 05:20 Fibrinogen 547.0 mg/dL (238-498) H 03/17/16 06:30 Problem List - Problems (1) Chronic kidney disease (CKD) stage G3a/A2, moderately decreased glomerular filtration rate (GFR) between 45-59 mL/min/1.73 square meter and albuminuria creatinine ratio between 30-299 mg/g Code(s): N18.3 - CHRONIC KIDNEY DISEASE, STAGE 3 (MODERATE) (2) COPD exacerbation Code(s): J44.1 - CHRONIC OBSTRUCTIVE PULMONARY DISEASE W (ACUTE) EXACERBATION (3) Acute and chronic respiratory failure ([id number]) Code(s): J96.20 - ACUTE AND CHR RESP FAILURE, UNSP W HYPOXIA OR HYPERCAPNIA Qualifiers: Qualified Code(s): J96.21 - Acute and chronic respiratory failure with hypoxia (4) Cellulitis Code(s): L03.90 - CELLULITIS, UNSPECIFIED (5) Anxiety and depression Code(s): F41.9 - ANXIETY DISORDER, UNSPECIFIED F32.9 - MAJOR DEPRESSIVE DISORDER, SINGLE EPISODE, UNSPECIFIED (6) Arteriosclerotic heart disease (ASHD) Code(s): I25.10 - ATHSCL HEART DISEASE OF [place] CORONARY ARTERY W/O ANG PCTRS (7) COPD (chronic obstructive pulmonary disease) Code(s): J44.9 - CHRONIC OBSTRUCTIVE PULMONARY DISEASE, UNSPECIFIED (8) Chronic combined systolic and diastolic CHF, NYHA class 4 Code(s): I50.42 - CHRONIC COMBINED SYSTOLIC AND DIASTOLIC HRT FAIL (9) Diabetes Code(s): E11.9 - TYPE 2 DIABETES MELLITUS WITHOUT COMPLICATIONS (10) Diastolic heart failure Code(s): I50.30 - UNSPECIFIED DIASTOLIC (CONGESTIVE) HEART FAILURE (11) Chronic kidney disease (CKD) Code(s): N18.9 - CHRONIC KIDNEY DISEASE, UNSPECIFIED Qualifiers: Qualified Code(s): N18.9 - Chronic kidney disease, unspecified Assessment/Plan Acute Kidney failure, superimposed on chronci kidney failure. The profoundly elevated Azotemia is partly due to the high dose of Steroids. MRSA sepsis is on going. In the absence of overt signs of fluid overload, Electrolyte imbalance, metabolic derangements and uremic symptoms, will defer the placement of a catheter for dialysis The patient has no signs of Uremia, and therefore no specific intervention to be done at this juncture. Hemaoglobin remains low. No signs of active bleeding. ? PRBC Transfusion. Will monitor the renal functions with you. Thank you. Will follow up with you. Shi Hernandez MD
[2016-04-01] MEDS: ASPIRIN COATED 81 MG TABLET.EC PO SCH (10:18)
[2016-04-01] MEDS: POLYETHYLENE GLYCOL 3350 119 GM BTL PO SCH (10:18)
--- NOTE | 2016-04-01 11:24 | PN ---
Physical Exam: SUBJECTIVE: Patient seen and examined. He has no complaints. OBJECTIVE: Vital Signs Period Temp Pulse Resp BP Sys/[place] Pulse Ox Last 24 Hr 97.4 F-98.3 F 87-99 17-21 87-135/54-90 90-96 GENERAL: The patient is awake, alert, and fully oriented, in no acute distress. HEAD: Normal with no signs of trauma. LUNGS: Clear to auscultation bilaterally with diminished BS at bases, no wheezes , no crackles, no accessory muscle use. HEART: Regular rate and rhythm, S1, S2 without murmur, rub or gallop. ABDOMEN: Obese, soft, nontender, nondistended, normoactive bowel sounds, no guarding, no rebound, no hepatosplenomegaly, no masses. EXTREMITIES: 2+ pulses, warm, well-perfused, 2+ edema. Laboratory Results - last 24 hr 03/18/16 03/31/16 03/31/16 08:10 05:27 05:30 WBC RBC Hgb Hct MCV MCHC RDW Plt Count MPV Sodium Potassium Chloride Carbon Dioxide Anion Gap BUN Creatinine Creat Clearance w eGFR Random Glucose Calcium Phosphorus 5.3 H D Cancelled Magnesium 2.6 H D Cancelled Total Bilirubin AST ALT Alkaline Phosphatase Total Protein Albumin Vancomycin Trough Crossmatch See Detail 04/01/16 04/01/16 04/01/16 05:00 05:00 05:00 WBC 7.9 RBC 3.04 L Hgb 7.9 L Hct 25.8 L MCV 84.7 MCHC 30.8 L RDW 21.3 H Plt Count 261 MPV 9.1 Sodium 146 H Potassium 4.3 Chloride 106 Carbon Dioxide 30 Anion Gap 10 BUN 89 H Creatinine 4.2 H Creat Clearance w eGFR 13.98 Random Glucose 174 H Calcium 7.1 L Phosphorus 4.3 Magnesium Total Bilirubin 0.4 AST 12 L D ALT 11 L Alkaline Phosphatase 109 Total Protein 5.6 L Albumin 2.2 L Vancomycin Trough 17.404 H* D Crossmatch Active Medications Generic Name Dose Route Start Last Admin Trade Name Freq PRN Reason Stop Dose Admin Acetaminophen 650 mg 03/22/16 16:39 03/31/16 14:13 Tylenol - PO 650 mg Q6H PRN Administration FEVER OR PAIN Albuterol Sulfate 1 amp 03/27/16 10:48 03/29/16 22:05 Ventolin 0.042trength) - NEB 1 amp Q6H PRN Administration SHORT OF BREATH/WHEEZING Albuterol/Ipratropium 1 amp 03/29/16 18:00 04/01/16 11:20 Duoneb - NEB 1 amp QIDR [facility] Administration Amlodipine Besylate 10 mg 03/23/16 10:00 04/01/16 10:15 Norvasc - PO 10 mg DAILY [facility] Administration Aspirin 81 mg 03/28/16 10:00 04/01/16 10:18 Ecotrin - PO 81 mg DAILY [facility] Administration Calcium Acetate 1,334 mg 03/22/16 17:30 04/01/16 08:52 Phoslo - PO 1,334 mg TIDCM [facility] Administration Docusate Sodium 100 mg 03/27/16 22:00 04/01/16 10:17 Colace - PO 100 mg BID [facility] Administration Duloxetine HCl 40 mg 03/26/16 10:00 04/01/16 10:16 Cymbalta - PO 40 mg DAILY [facility] Administration Epoetin Keith 20,000 unit 03/24/16 10:00 03/31/16 10:47 Procrit - SQ 20,000 unit MoWeFr@1000 [facility] Administration Heparin Sodium (Porcine) 5,000 unit 03/29/16 10:00 04/01/16 06:19 Heparin - SQ 5,000 unit TID [facility] Administration Pantoprazole Sodium 100 mls @ 200 mls/hr 03/29/16 18:30 04/01/16 10:15 Protonix 40mg Ivpb (Pre-Docked) IVPB 200 mls/hr DAILY [facility] Administration Aztreonam 0.5 gm/ Dextrose 50 mls @ 100 mls/hr 03/30/16 02:00 04/01/16 10:18 IVPB 100 mls/hr Q8H-IV [facility] Administration Vancomycin HCl 250 mls @ 166.667 mls/hr 04/01/16 08:00 Vancomycin (Pre-Docked) IVPB 04/01/16 09:29 ONCE ONE Methylprednisolone Sodium Succinate 40 mg 04/01/16 10:00 04/01/16 10:15 Solu-Medrol - IVPB 40 mg BID [facility] Administration Polyethylene Glycol 17 gm 03/23/16 10:00 04/01/16 10:18 Miralax (For Daily Use) - PO 17 gm DAILY [facility] Administration Sodium Chloride 2 spray 03/22/16 16:39 04/01/16 05:00 [place] Nasal [place] - NS 2 sprays BID PRN Administration NASAL CONGESTION Zinc Oxide/Panthenol/Vitamin E 1 applic 03/22/16 16:39 04/01/16 06:21 Balmex Cream - TP 1 applic ASDIR PRN Administration HYGEINE ASSESSMENT/PLAN: This is a 75-year-old man with a history of COPD, PVD, chronic lower extremity lymphedema, CAD, stage 4 CKD who presented to the ER with shortness of breath. 1. Severe sepsis secondary to bilateral lower extremity cellulitis, permacath infection, MRSA bacteremia - Continue Azactam, Vancomycin - Blood cultures persistently positive so would do YIMI 2. Acute and chronic hypercapnic and hypoxic respiratory failure secondary to COPD exacerbation, pleural effusions - Continue SoluMedrol, DuoNeb, albuterol as needed - s/p thoracentesis 03/07 and 03/21 3. Acute kidney injury on stage 4 CKD - Creatinine improving - Not requiring HD 4. Anemia secondary to chronic kidney disease - Hemoglobin stable - Continue Procrit, PhosLo 5. Thrombocytopenia - Resolved 6. Hypertension - Continue Norvasc 7. Coronary artery disease, history of stent - Continue aspirin 8. Constipation - Continue Colace, Miralax 9. PVD 10. Acute diastolic heart failure - Improved 11. Chronic diastolic heart failure 12. Obesity with BMI 37.4 13. Obstructive sleep apnea, obesity-hypoventilation syndrome - BiPAP as needed Visit type - Emergency Visit Emergency Visit: Yes ED Registration Date: 02/18/16 Care time: The patient presented to the Emergency Department on the above date and was hospitalized for further evaluation of their emergent condition. - New Patient This patient is new to me today: No - Critical Care Critical Care patient: No - Discharge Referral Referred to [facility] Med P.C.: No
[2016-04-02] MEDS: ALBUTEROL SO4 2.5/IPRATROPIUM 0.5 INH SOL 3 ML VIAL.NEB. NEB SCH ×5 (00:05→23:10)
[2016-04-02] MEDS: AZTREONAM 0.5 GM in DEXTROSE 5%-WATER - 50 ML IVPB SCH ×3 (02:00→17:59)
[2016-04-02] MEDS: HEPARIN NA (PORCINE) 5,000 UNITS/ML 1ML VIAL SQ SCH ×3 (06:15→21:40)
[2016-04-02 07:06] LABS: MCH 26.3 pg (25.7-33.7); MCHC 31.1 g/dl (32.0-35.9); MEAN CELL VOLUME 84.5 fl (80-96); MEAN PLT VOLUME 8.4 fl (7.5-11.1); PLATELET COUNT 300 K/MM3 (134-434); RDW 21.7 % (11.9-15.9); WHITE BLOOD COUNT 6.8 K/mm3 (4.0-10.0)
[2016-04-02 07:37] LABS: ALBUMIN 2.3 g/dl (3.4-5.0); CALCIUM 7.4 mg/dL (8.5-10.1); MAGNESIUM 2.9 mg/dL (1.8-2.4)
[2016-04-02 07:42] LABS: BILIRUBIN,TOTAL 0.4 mg/dL (0.2-1.0); CREATININE 3.3 mg/dL (0.7-1.3); PHOSPHOROUS 3.9 mg/dL (2.5-4.9); TOT PROT 5.5 g/dl (6.4-8.2)
[2016-04-02] MEDS ORDERED: PT OWN MED DRAWER 7, Y5N ONE (09:03)
[2016-04-02] MEDS: CALCIUM ACETATE 667 MG CAPSULE (FP) PO SCH ×3 (09:15→17:59)
--- NOTE | 2016-04-02 09:16 | PN ---
Progress Note, Physician Chief Complaint: awake, alert no distress TELE: NSR, APCs CXR: largely unchanged from 03/31 - Current Medication List Current Medications: Active Medications Acetaminophen (Tylenol -) 650 mg PO Q6H PRN PRN Reason: FEVER OR PAIN Last Admin: 03/31/16 14:13 Dose: 650 mg Albuterol Sulfate (Ventolin 0.042trength) -) 1 amp NEB Q6H PRN PRN Reason: SHORT OF BREATH/WHEEZING Last Admin: 03/29/16 22:05 Dose: 1 amp Albuterol/Ipratropium (Duoneb -) 1 amp NEB QIDR [facility] Last Admin: 04/02/16 06:00 Dose: 1 amp Amlodipine Besylate (Norvasc -) 10 mg PO DAILY [facility] Last Admin: 04/01/16 10:15 Dose: 10 mg Aspirin (Ecotrin -) 81 mg PO DAILY [facility] Last Admin: 04/01/16 10:18 Dose: 81 mg Calcium Acetate (Phoslo -) 1,334 mg PO TIDCM [facility] Last Admin: 04/01/16 17:58 Dose: 1,334 mg Docusate Sodium (Colace -) 100 mg PO BID [facility] Last Admin: 04/01/16 22:00 Dose: 100 mg Duloxetine HCl (Cymbalta -) 40 mg PO DAILY [facility] Last Admin: 04/01/16 10:16 Dose: 40 mg Epoetin Keith (Procrit -) 20,000 unit SQ MoWeFr@1000 [facility] Last Admin: 03/31/16 10:47 Dose: 20,000 unit Heparin Sodium (Porcine) (Heparin -) 5,000 unit SQ TID [facility] Last Admin: 04/02/16 06:15 Dose: 5,000 unit Pantoprazole Sodium (Protonix 40mg Ivpb (Pre-Docked)) 100 mls @ 200 mls/hr IVPB DAILY [facility] Last Admin: 04/01/16 10:15 Dose: 200 mls/hr Aztreonam 0.5 gm/ Dextrose 50 mls @ 100 mls/hr IVPB Q8H-IV [facility] Last Admin: 04/02/16 02:00 Dose: 100 mls/hr Vancomycin HCl (Vancomycin (Pre-Docked)) 250 mls @ 166.667 mls/hr IVPB ONCE ONE Stop: 04/01/16 09:29 Methylprednisolone Sodium Succinate (Solu-Medrol -) 40 mg IVPB BID [facility] Last Admin: 04/01/16 22:00 Dose: 40 mg Polyethylene Glycol (Miralax (For Daily Use) -) 17 gm PO DAILY [facility] Last Admin: 04/01/16 10:18 Dose: 17 gm Sodium Chloride ([place] Nasal [place] -) 2 spray NS BID PRN PRN Reason: NASAL CONGESTION Last Admin: 04/01/16 22:00 Dose: 2 sprays Zinc Oxide/Panthenol/Vitamin E (Balmex Cream -) 1 applic TP ASDIR PRN PRN Reason: HYGEINE Last Admin: 04/01/16 22:00 Dose: 1 applic - Objective Vital Signs: Vital Signs Temperature 97.8 F 04/02/16 06:00 Pulse Rate 87 04/02/16 06:00 Respiratory Rate 18 04/02/16 06:00 Blood Pressure 129/55 04/02/16 06:00 O2 Sat by Pulse Oximetry (%) 95 04/01/16 23:00 Constitutional: Yes: No Distress Eyes: Yes: Conjunctiva Clear Cardiovascular: Yes: Regular Rate and Rhythm Respiratory: Yes: Other (decreased basilar breath sounds, no wheezing) Gastrointestinal: Yes: Soft, Abdomen, Obese Edema: Yes Edema: LLE: 2+, RLE: 2+ Neurological: Yes: Alert, Oriented Labs: CBC, BMP 04/02/16 05:35 04/02/16 05:35 INR, PTT INR 1.27 (0.82-1.09) H 03/30/16 05:20 Fibrinogen 547.0 mg/dL (238-498) H 03/17/16 06:30 Microbiology 03/31/16 05:27 Blood - Peripheral Venous Blood Culture - Final Mr S Aureus 03/31/16 05:27 Blood - Peripheral Venous Blood Culture - Preliminary Presumptive Mrsa (Pbp2a Pos) Laboratory Tests 04/02/16 04/02/16 05:35 05:35 WBC 6.8 Hgb 8.1 L Hct 26.2 L Plt Count 300 Potassium 4.5 BUN 88 H Creatinine 3.3 H D - ....Imaging EKG: Image Reviewed Assessment/Plan IMP: Acute on chronic hypercarbic respiratory failure Chronic COPD Sepsis, gram + Bacteremia, infected HD catheter- removed ESRD CAD REC: 1. Resp. failure: -s/p intubation, now awake and alert. -NIPPV as needed. 2. Sepsis: -gram + bacteremia; infected HD catheter removed.Surveillance cultures pending. -Abx as per ID -A repeat TTE showed no evidence of endocarditis 3. CAD: -PCI approximately one year ago -Back on ASA 81 after interval of thrombocytopenia earlier in admission 4. ESRD: -HD as per renal -replacement of HD catheter as per renal and ID
[2016-04-02] MEDS: DOCUSATE SODIUM 100 MG CAPSULE (FP) PO SCH ×2 (09:17→21:39)
[2016-04-02] MEDS: DULoxetine HCL 20 MG CAPSULE.DR (FP) PO SCH (09:17)
[2016-04-02] MEDS: amLODIPine BESYLATE 10 MG TABLET (FP) PO SCH (09:19)
[2016-04-02] MEDS: ASPIRIN COATED 81 MG TABLET.EC PO SCH (09:19)
[2016-04-02] MEDS: POLYETHYLENE GLYCOL 3350 119 GM BTL PO SCH (09:19)
[2016-04-02] MEDS: PANTOPRAZOLE SODIUM 100 ML IVPB SCH (09:20)
[2016-04-02] MEDS: methylPREDNISolone NA SUCC 40 MG/1 ML VIAL IVPB SCH (09:20)
--- NOTE | 2016-04-02 09:39 | PN ---
Physical Exam: SUBJECTIVE: Patient seen and examined. He has no complaints. OBJECTIVE: Vital Signs Period Temp Pulse Resp BP Sys/[place] Pulse Ox Last 24 Hr 97.4 F-98.4 F 78-110 13-28 114-152/55-89 90-96 GENERAL: The patient is awake, alert, and fully oriented, in no acute distress. HEAD: Normal with no signs of trauma. LUNGS: Bilateral rhonchi. Decreased BS at bases. HEART: Regular rate and rhythm, S1, S2 without murmur, rub or gallop. ABDOMEN: Obese, soft, nontender, nondistended, normoactive bowel sounds, no guarding, no rebound, no hepatosplenomegaly, no masses. EXTREMITIES: 2+ pulses, warm, well-perfused, 1+ edema. Laboratory Results - last 24 hr 04/02/16 04/02/16 05:35 05:35 WBC 6.8 RBC 3.10 L Hgb 8.1 L Hct 26.2 L MCV 84.5 MCHC 31.1 L RDW 21.7 H Plt Count 300 MPV 8.4 Neutrophils % Y Lymphocytes % Y Sodium 145 Potassium 4.5 Chloride 109 H Carbon Dioxide 33 H Anion Gap 3 L BUN 88 H Creatinine 3.3 H D Creat Clearance w eGFR 18.47 Random Glucose 173 H Calcium 7.4 L Phosphorus 3.9 Magnesium 2.9 H Total Bilirubin 0.4 AST 18 D ALT 15 D Alkaline Phosphatase 108 Total Protein 5.5 L Albumin 2.3 L Active Medications Generic Name Dose Route Start Last Admin Trade Name Freq PRN Reason Stop Dose Admin Acetaminophen 650 mg 03/22/16 16:39 03/31/16 14:13 Tylenol - PO 650 mg Q6H PRN Administration FEVER OR PAIN Albuterol Sulfate 1 amp 03/27/16 10:48 03/29/16 22:05 Ventolin 0.042trength) - NEB 1 amp Q6H PRN Administration SHORT OF BREATH/WHEEZING Albuterol/Ipratropium 1 amp 03/29/16 18:00 04/02/16 06:00 Duoneb - NEB 1 amp QIDR [facility] Administration Amlodipine Besylate 10 mg 03/23/16 10:00 04/02/16 09:19 Norvasc - PO 10 mg DAILY [facility] Administration Aspirin 81 mg 03/28/16 10:00 04/02/16 09:19 Ecotrin - PO 81 mg DAILY [facility] Administration Calcium Acetate 1,334 mg 03/22/16 17:30 04/02/16 09:15 Phoslo - PO 1,334 mg TIDCM [facility] Administration Docusate Sodium 100 mg 03/27/16 22:00 04/02/16 09:17 Colace - PO 100 mg BID [facility] Administration Duloxetine HCl 40 mg 03/26/16 10:00 04/02/16 09:17 Cymbalta - PO 40 mg DAILY [facility] Administration Epoetin Keith 20,000 unit 03/24/16 10:00 03/31/16 10:47 Procrit - SQ 20,000 unit MoWeFr@1000 [facility] Administration Heparin Sodium (Porcine) 5,000 unit 03/29/16 10:00 04/02/16 06:15 Heparin - SQ 5,000 unit TID [facility] Administration Pantoprazole Sodium 100 mls @ 200 mls/hr 03/29/16 18:30 04/02/16 09:20 Protonix 40mg Ivpb (Pre-Docked) IVPB 200 mls/hr DAILY [facility] Administration Aztreonam 0.5 gm/ Dextrose 50 mls @ 100 mls/hr 03/30/16 02:00 04/02/16 09:21 IVPB 100 mls/hr Q8H-IV [facility] Administration Vancomycin HCl 250 mls @ 166.667 mls/hr 04/01/16 08:00 Vancomycin (Pre-Docked) IVPB 04/01/16 09:29 ONCE ONE Methylprednisolone Sodium Succinate 40 mg 04/01/16 10:00 04/02/16 09:20 Solu-Medrol - IVPB 40 mg BID [facility] Administration Polyethylene Glycol 17 gm 03/23/16 10:00 04/02/16 09:19 Miralax (For Daily Use) - PO 17 gm DAILY [facility] Administration Sodium Chloride 2 spray 03/22/16 16:39 04/01/16 22:00 [place] Counselor Nasal Counselor - NS 2 sprays BID PRN Administration NASAL CONGESTION Zinc Oxide/Panthenol/Vitamin E 1 applic 03/22/16 16:39 04/01/16 22:00 Balmex Cream - TP 1 applic ASDIR PRN Administration HYGEINE ASSESSMENT/PLAN: This is a 75-year-old man with a history of COPD, PVD, chronic lower extremity lymphedema, CAD, stage 4 CKD who presented to the ER with shortness of breath. 1. Severe sepsis secondary to bilateral lower extremity cellulitis, permacath infection, MRSA bacteremia - Continue Azactam, Vancomycin - Blood cultures have been persistently positive for MRSA, so would do YIMI 2. Acute and chronic hypercapnic and hypoxic respiratory failure secondary to COPD exacerbation, pleural effusions - Continue SoluMedrol, DuoNeb, albuterol as needed - s/p thoracentesis 03/07 and 03/21 3. Acute kidney injury on stage 4 CKD - Creatinine improving - Not requiring HD 4. Anemia secondary to chronic kidney disease - Hemoglobin stable - Continue Procrit, PhosLo 5. Thrombocytopenia - Resolved 6. Hypertension - Continue Norvasc 7. Coronary artery disease, history of stent - Continue aspirin 8. Constipation - Continue Colace, Miralax 9. PVD 10. Acute diastolic heart failure - Improved 11. Chronic diastolic heart failure 12. Obesity with BMI 37.4 13. Obstructive sleep apnea, obesity-hypoventilation syndrome - BiPAP as needed Visit type - Emergency Visit Emergency Visit: Yes ED Registration Date: 02/18/16 Care time: The patient presented to the Emergency Department on the above date and was hospitalized for further evaluation of their emergent condition. - New Patient This patient is new to me today: No - Critical Care Critical Care patient: No - Discharge Referral Referred to [facility] Med P.C.: No
--- NOTE | 2016-04-02 10:09 | PN ---
Progress Note (short form) - Note Progress Note: PULMONARY/CCM Pt seen and examined in the ICU. Breathing continues to improve. Did not require BiPAP overnight. No fevers recorded. Maintaining good urine output off dialysis. Last Vital Signs Temp Pulse Resp BP Pulse Ox 97.8 F 87 18 129/55 95 04/02/16 06:00 04/02/16 06:00 04/02/16 06:00 04/02/16 06:00 04/01/16 23:00 Intake & Output 03/30/16 03/31/16 04/01/16 04/02/16 23:59 23:59 23:59 23:59 Intake Total 945.5 773 622 158 Output Total 750 1350 600 Balance 945.5 84 -373 -052 Weight 261 lb 8 oz 261 lb 6 oz 261 lb 259 lb 6.4 oz Gen: less tachypneic Heart: RRR Lung: decreased breath sounds at the bases Abd: soft, nontender, obese Ext: + edema CBC, BMP 04/02/16 05:35 04/02/16 05:35 Active Medications Acetaminophen (Tylenol -) 650 mg PO Q6H PRN PRN Reason: FEVER OR PAIN Last Admin: 03/31/16 14:13 Dose: 650 mg Albuterol Sulfate (Ventolin 0.042trength) -) 1 amp NEB Q6H PRN PRN Reason: SHORT OF BREATH/WHEEZING Last Admin: 03/29/16 22:05 Dose: 1 amp Albuterol/Ipratropium (Duoneb -) 1 amp NEB QIDR [facility] Last Admin: 04/02/16 06:00 Dose: 1 amp Amlodipine Besylate (Norvasc -) 10 mg PO DAILY [facility] Last Admin: 04/02/16 09:19 Dose: 10 mg Aspirin (Ecotrin -) 81 mg PO DAILY [facility] Last Admin: 04/02/16 09:19 Dose: 81 mg Calcium Acetate (Phoslo -) 1,334 mg PO TIDCM [facility] Last Admin: 04/02/16 09:15 Dose: 1,334 mg Docusate Sodium (Colace -) 100 mg PO BID [facility] Last Admin: 04/02/16 09:17 Dose: 100 mg Duloxetine HCl (Cymbalta -) 40 mg PO DAILY [facility] Last Admin: 04/02/16 09:17 Dose: 40 mg Epoetin Keith (Procrit -) 20,000 unit SQ MoWeFr@1000 [facility] Last Admin: 03/31/16 10:47 Dose: 20,000 unit Heparin Sodium (Porcine) (Heparin -) 5,000 unit SQ TID [facility] Last Admin: 04/02/16 06:15 Dose: 5,000 unit Pantoprazole Sodium (Protonix 40mg Ivpb (Pre-Docked)) 100 mls @ 200 mls/hr IVPB DAILY [facility] Last Admin: 04/02/16 09:20 Dose: 200 mls/hr Aztreonam 0.5 gm/ Dextrose 50 mls @ 100 mls/hr IVPB Q8H-IV [facility] Last Admin: 04/02/16 09:21 Dose: 100 mls/hr Vancomycin HCl (Vancomycin (Pre-Docked)) 250 mls @ 166.667 mls/hr IVPB ONCE ONE Stop: 04/01/16 09:29 Methylprednisolone Sodium Succinate (Solu-Medrol -) 40 mg IVPB BID [facility] Last Admin: 04/02/16 09:20 Dose: 40 mg Polyethylene Glycol (Miralax (For Daily Use) -) 17 gm PO DAILY [facility] Last Admin: 04/02/16 09:19 Dose: 17 gm Sodium Chloride ([place] Nasal [place] -) 2 spray NS BID PRN PRN Reason: NASAL CONGESTION Last Admin: 04/01/16 22:00 Dose: 2 sprays Zinc Oxide/Panthenol/Vitamin E (Balmex Cream -) 1 applic TP ASDIR PRN PRN Reason: HYGEINE Last Admin: 04/01/16 22:00 Dose: 1 applic A/P Acute on Chronic Hypercapneic and Hypoxic Respiratory Failure improving Likely Permacath Infection MRSA Bacteremia Severe Sepsis Acute on Chronic Renal Failure requiring HD Acute COPD Exacerbation Lactic Acidosis resolved Acute on Chronic LV Diastolic Heart Failure CAD Morbid Obesity JOY/OHS - can change steroids to PO in AM - inhaled bronchodilators standing and PRN - vanco by level - f/u pending cultures - if persistent positive blood, may need to consider YIMI - HD per renal, ideally would like to postpone HD access until cultures clear, pt making good urine, no emergent indication for HD today - monitor urine output, creatinine - DVT/GI prophylaxis - can monitor on telemetry
--- NOTE | 2016-04-02 12:31 | PN ---
Progress Note, Physician Chief Complaint: Patient seen in ICU. visiting. Oral intake slowly improving. Seems comfortable. Clifford catheter draining clear urine. No diarrhea or constipation. No chest pain or shortness of breath. - Current Medication List Current Medications: Active Medications Acetaminophen (Tylenol -) 650 mg PO Q6H PRN PRN Reason: FEVER OR PAIN Last Admin: 03/31/16 14:13 Dose: 650 mg Albuterol Sulfate (Ventolin 0.042trength) -) 1 amp NEB Q6H PRN PRN Reason: SHORT OF BREATH/WHEEZING Last Admin: 03/29/16 22:05 Dose: 1 amp Albuterol/Ipratropium (Duoneb -) 1 amp NEB QIDR [facility] Last Admin: 04/02/16 11:17 Dose: 1 amp Amlodipine Besylate (Norvasc -) 10 mg PO DAILY [facility] Last Admin: 04/02/16 09:19 Dose: 10 mg Aspirin (Ecotrin -) 81 mg PO DAILY [facility] Last Admin: 04/02/16 09:19 Dose: 81 mg Calcium Acetate (Phoslo -) 1,334 mg PO TIDCM [facility] Last Admin: 04/02/16 09:15 Dose: 1,334 mg Docusate Sodium (Colace -) 100 mg PO BID [facility] Last Admin: 04/02/16 09:17 Dose: 100 mg Duloxetine HCl (Cymbalta -) 40 mg PO DAILY [facility] Last Admin: 04/02/16 09:17 Dose: 40 mg Epoetin Keith (Procrit -) 20,000 unit SQ MoWeFr@1000 [facility] Last Admin: 03/31/16 10:47 Dose: 20,000 unit Heparin Sodium (Porcine) (Heparin -) 5,000 unit SQ TID [facility] Last Admin: 04/02/16 06:15 Dose: 5,000 unit Pantoprazole Sodium (Protonix 40mg Ivpb (Pre-Docked)) 100 mls @ 200 mls/hr IVPB DAILY [facility] Last Admin: 04/02/16 09:20 Dose: 200 mls/hr Aztreonam 0.5 gm/ Dextrose 50 mls @ 100 mls/hr IVPB Q8H-IV [facility] Last Admin: 04/02/16 09:21 Dose: 100 mls/hr Vancomycin HCl (Vancomycin (Pre-Docked)) 250 mls @ 166.667 mls/hr IVPB ONCE ONE Stop: 04/01/16 09:29 Polyethylene Glycol (Miralax (For Daily Use) -) 17 gm PO DAILY [facility] Last Admin: 04/02/16 09:19 Dose: 17 gm Prednisone (Deltasone -) 40 mg PO DAILY [facility] Sodium Chloride ([place] Nasal [place] -) 2 spray NS BID PRN PRN Reason: NASAL CONGESTION Last Admin: 04/01/16 22:00 Dose: 2 sprays Zinc Oxide/Panthenol/Vitamin E (Balmex Cream -) 1 applic TP ASDIR PRN PRN Reason: HYGEINE Last Admin: 04/01/16 22:00 Dose: 1 applic - Objective Vital Signs: Vital Signs Temperature 97.8 F 04/02/16 06:00 Pulse Rate 95 H 04/02/16 10:29 Respiratory Rate 18 04/02/16 10:00 Blood Pressure 140/50 04/02/16 10:00 O2 Sat by Pulse Oximetry (%) 96 04/02/16 10:29 Constitutional: Yes: Well Nourished, No Distress Eyes: Yes: WNL HENT: Yes: Atraumatic Neck: Yes: Supple Cardiovascular: Yes: WNL, Tachycardia, S1, S2 Respiratory: Yes: Regular, CTA Bilaterally, Diminished Gastrointestinal: Yes: Normal Bowel Sounds, Abdomen, Obese Edema: Yes Edema: LLE: 3+, RLE: 3+ Labs: CBC, BMP 04/02/16 05:35 04/02/16 05:35 INR, PTT INR 1.27 (0.82-1.09) H 03/30/16 05:20 Fibrinogen 547.0 mg/dL (238-498) H 03/17/16 06:30 Problem List - Problems (1) Chronic kidney disease (CKD) stage G3a/A2, moderately decreased glomerular filtration rate (GFR) between 45-59 mL/min/1.73 square meter and albuminuria creatinine ratio between 30-299 mg/g Code(s): N18.3 - CHRONIC KIDNEY DISEASE, STAGE 3 (MODERATE) (2) COPD exacerbation Code(s): J44.1 - CHRONIC OBSTRUCTIVE PULMONARY DISEASE W (ACUTE) EXACERBATION (3) Acute and chronic respiratory failure ([id number]) Code(s): J96.20 - ACUTE AND CHR RESP FAILURE, UNSP W HYPOXIA OR HYPERCAPNIA Qualifiers: Qualified Code(s): J96.21 - Acute and chronic respiratory failure with hypoxia (4) Cellulitis Code(s): L03.90 - CELLULITIS, UNSPECIFIED (5) Anxiety and depression Code(s): F41.9 - ANXIETY DISORDER, UNSPECIFIED F32.9 - MAJOR DEPRESSIVE DISORDER, SINGLE EPISODE, UNSPECIFIED (6) Arteriosclerotic heart disease (ASHD) Code(s): I25.10 - ATHSCL HEART DISEASE OF [place] CORONARY ARTERY W/O ANG PCTRS (7) COPD (chronic obstructive pulmonary disease) Code(s): J44.9 - CHRONIC OBSTRUCTIVE PULMONARY DISEASE, UNSPECIFIED (8) Chronic combined systolic and diastolic CHF, NYHA class 4 Code(s): I50.42 - CHRONIC COMBINED SYSTOLIC AND DIASTOLIC HRT FAIL (9) Diabetes Code(s): E11.9 - TYPE 2 DIABETES MELLITUS WITHOUT COMPLICATIONS (10) Diastolic heart failure Code(s): I50.30 - UNSPECIFIED DIASTOLIC (CONGESTIVE) HEART FAILURE (11) Chronic kidney disease (CKD) Code(s): N18.9 - CHRONIC KIDNEY DISEASE, UNSPECIFIED Qualifiers: Qualified Code(s): N18.9 - Chronic kidney disease, unspecified Assessment/Plan Acute Kidney failure, superimposed on chronci kidney failure. The Azotemia is improving. maintains good urine output. MRSA sepsis is on going. In the absence of overt signs of fluid overload, Electrolyte imbalance, metabolic derangements and uremic symptoms, will defer the placement of a catheter for dialysis. The latest Blood cultures are pending. Will monitor the renal functions with you. Thank you. Will follow up with you. Shi Hernandez MD
[2016-04-02 12:46] LABS: ANISOCYTOSIS 2+; PLATELET ESTIMATE ADEQUATE (NORMAL)
--- NOTE | 2016-04-02 14:30 | PN ---
Progress Note, Physician History of Present Illness: continues to remain stable no new issues afebrile much better on venti mask - Current Medication List Current Medications: Active Medications Acetaminophen (Tylenol -) 650 mg PO Q6H PRN PRN Reason: FEVER OR PAIN Last Admin: 03/31/16 14:13 Dose: 650 mg Albuterol Sulfate (Ventolin 0.042trength) -) 1 amp NEB Q6H PRN PRN Reason: SHORT OF BREATH/WHEEZING Last Admin: 03/29/16 22:05 Dose: 1 amp Albuterol/Ipratropium (Duoneb -) 1 amp NEB QIDR [facility] Last Admin: 04/02/16 11:17 Dose: 1 amp Amlodipine Besylate (Norvasc -) 10 mg PO DAILY [facility] Last Admin: 04/02/16 09:19 Dose: 10 mg Aspirin (Ecotrin -) 81 mg PO DAILY [facility] Last Admin: 04/02/16 09:19 Dose: 81 mg Calcium Acetate (Phoslo -) 1,334 mg PO TIDCM [facility] Last Admin: 04/02/16 09:15 Dose: 1,334 mg Docusate Sodium (Colace -) 100 mg PO BID [facility] Last Admin: 04/02/16 09:17 Dose: 100 mg Duloxetine HCl (Cymbalta -) 40 mg PO DAILY [facility] Last Admin: 04/02/16 09:17 Dose: 40 mg Epoetin Keith (Procrit -) 20,000 unit SQ MoWeFr@1000 [facility] Last Admin: 03/31/16 10:47 Dose: 20,000 unit Heparin Sodium (Porcine) (Heparin -) 5,000 unit SQ TID [facility] Last Admin: 04/02/16 06:15 Dose: 5,000 unit Pantoprazole Sodium (Protonix 40mg Ivpb (Pre-Docked)) 100 mls @ 200 mls/hr IVPB DAILY [facility] Last Admin: 04/02/16 09:20 Dose: 200 mls/hr Aztreonam 0.5 gm/ Dextrose 50 mls @ 100 mls/hr IVPB Q8H-IV [facility] Last Admin: 04/02/16 09:21 Dose: 100 mls/hr Vancomycin HCl (Vancomycin (Pre-Docked)) 250 mls @ 166.667 mls/hr IVPB ONCE ONE Stop: 04/01/16 09:29 Polyethylene Glycol (Miralax (For Daily Use) -) 17 gm PO DAILY [facility] Last Admin: 04/02/16 09:19 Dose: 17 gm Prednisone (Deltasone -) 40 mg PO DAILY [facility] Sodium Chloride ([place] Nasal [place] -) 2 spray NS BID PRN PRN Reason: NASAL CONGESTION Last Admin: 04/01/16 22:00 Dose: 2 sprays Zinc Oxide/Panthenol/Vitamin E (Balmex Cream -) 1 applic TP ASDIR PRN PRN Reason: HYGEINE Last Admin: 04/01/16 22:00 Dose: 1 applic - Objective Vital Signs: Vital Signs Temperature 97.8 F 04/02/16 06:00 Pulse Rate 95 H 04/02/16 10:29 Respiratory Rate 18 04/02/16 10:00 Blood Pressure 140/50 04/02/16 10:00 O2 Sat by Pulse Oximetry (%) 96 04/02/16 10:29 Constitutional: Yes: No Distress, Calm Cardiovascular: Yes: Regular Rate and Rhythm Respiratory: Yes: Regular, On Venti-Mask Gastrointestinal: Yes: Normal Bowel Sounds, Soft Musculoskeletal: Yes: WNL Extremities: Yes: Other Neurological: Yes: Alert, Oriented Psychiatric: Yes: Alert Labs: CBC, BMP 04/02/16 05:35 04/02/16 05:35 INR, PTT INR 1.27 (0.82-1.09) H 03/30/16 05:20 Fibrinogen 547.0 mg/dL (238-498) H 03/17/16 06:30 Assessment/Plan 75 year-old man with a PMH of HTN, PVD, COPD, CKD (baseline Cr 1.9), nephrolithiasis, and chronic LE lymphedema. Admitted in acute renal failure. Acute on chronic renal failure Hyperkalemia Sepsis s Hypertension Peripheral vascular disease Hypercarbic respiratory failure COPD bilateral cellulitis of the legs rsv lung infection pleural effusion anemia fevers gm positive bacteremia mrsa bacteremia plan cellulitis improving blood cx still positive for mrsa will continue vanco for now await for the report cc time 40 min
--- NOTE | 2016-04-02 14:33 | PN ---
Progress Note, Physician History of Present Illness: patient looks much better no issues no new events patient except weakness stable - Current Medication List Current Medications: Active Medications Acetaminophen (Tylenol -) 650 mg PO Q6H PRN PRN Reason: FEVER OR PAIN Last Admin: 03/31/16 14:13 Dose: 650 mg Albuterol Sulfate (Ventolin 0.042trength) -) 1 amp NEB Q6H PRN PRN Reason: SHORT OF BREATH/WHEEZING Last Admin: 03/29/16 22:05 Dose: 1 amp Albuterol/Ipratropium (Duoneb -) 1 amp NEB QIDR [facility] Last Admin: 04/02/16 11:17 Dose: 1 amp Amlodipine Besylate (Norvasc -) 10 mg PO DAILY [facility] Last Admin: 04/02/16 09:19 Dose: 10 mg Aspirin (Ecotrin -) 81 mg PO DAILY [facility] Last Admin: 04/02/16 09:19 Dose: 81 mg Calcium Acetate (Phoslo -) 1,334 mg PO TIDCM [facility] Last Admin: 04/02/16 09:15 Dose: 1,334 mg Docusate Sodium (Colace -) 100 mg PO BID [facility] Last Admin: 04/02/16 09:17 Dose: 100 mg Duloxetine HCl (Cymbalta -) 40 mg PO DAILY [facility] Last Admin: 04/02/16 09:17 Dose: 40 mg Epoetin Keith (Procrit -) 20,000 unit SQ MoWeFr@1000 [facility] Last Admin: 03/31/16 10:47 Dose: 20,000 unit Heparin Sodium (Porcine) (Heparin -) 5,000 unit SQ TID [facility] Last Admin: 04/02/16 06:15 Dose: 5,000 unit Pantoprazole Sodium (Protonix 40mg Ivpb (Pre-Docked)) 100 mls @ 200 mls/hr IVPB DAILY [facility] Last Admin: 04/02/16 09:20 Dose: 200 mls/hr Aztreonam 0.5 gm/ Dextrose 50 mls @ 100 mls/hr IVPB Q8H-IV [facility] Last Admin: 04/02/16 09:21 Dose: 100 mls/hr Vancomycin HCl (Vancomycin (Pre-Docked)) 250 mls @ 166.667 mls/hr IVPB ONCE ONE Stop: 04/01/16 09:29 Polyethylene Glycol (Miralax (For Daily Use) -) 17 gm PO DAILY [facility] Last Admin: 04/02/16 09:19 Dose: 17 gm Prednisone (Deltasone -) 40 mg PO DAILY [facility] Sodium Chloride ([place] Nasal [place] -) 2 spray NS BID PRN PRN Reason: NASAL CONGESTION Last Admin: 04/01/16 22:00 Dose: 2 sprays Zinc Oxide/Panthenol/Vitamin E (Balmex Cream -) 1 applic TP ASDIR PRN PRN Reason: HYGEINE Last Admin: 04/01/16 22:00 Dose: 1 applic - Objective Vital Signs: Vital Signs Temperature 97.8 F 04/02/16 06:00 Pulse Rate 95 H 04/02/16 10:29 Respiratory Rate 18 04/02/16 10:00 Blood Pressure 140/50 04/02/16 10:00 O2 Sat by Pulse Oximetry (%) 96 04/02/16 10:29 Constitutional: Yes: No Distress, Calm Cardiovascular: Yes: Regular Rate and Rhythm Respiratory: Yes: Regular, On Nasal O2, Poor Air Entry Gastrointestinal: Yes: Normal Bowel Sounds, Soft Musculoskeletal: Yes: WNL Extremities: Yes: Other Edema: LLE: 1+, RLE: 1+ Integumentary: Yes: Venous Stasis Changes Neurological: Yes: Alert, Oriented Psychiatric: Yes: Alert Labs: CBC, BMP 04/02/16 05:35 04/02/16 05:35 INR, PTT INR 1.27 (0.82-1.09) H 03/30/16 05:20 Fibrinogen 547.0 mg/dL (238-498) H 03/17/16 06:30 Assessment/Plan 75 year-old man with a PMH of HTN, PVD, COPD, CKD (baseline Cr 1.9), nephrolithiasis, and chronic LE lymphedema. Admitted in acute renal failure. Acute on chronic renal failure Hyperkalemia Sepsis s Hypertension Peripheral vascular disease Hypercarbic respiratory failure COPD bilateral cellulitis of the legs rsv lung infection pleural effusion anemia fevers gm positive bacteremia mrsa bacteremia plan cellulitis improving blood cx still positive for mrsa repeat cx send will decide after the cx if to switch from vanco to dapto or not cc time 40 min
[2016-04-02] MEDS ORDERED: VANCOMYCIN 750 MG in DEXTROSE 5%-WATER - 250 ML IVPB ONE (15:30)
[2016-04-02] MEDS: ZINC OXIDE/PANTHENOL/VITAMIN E 56 GM TUBE TP PRN (22:00)
[2016-04-03] MEDS: AZTREONAM 0.5 GM in DEXTROSE 5%-WATER - 50 ML IVPB SCH ×3 (01:10→18:28)
[2016-04-03] MEDS: HEPARIN NA (PORCINE) 5,000 UNITS/ML 1ML VIAL SQ SCH ×3 (05:08→21:30)
[2016-04-03 06:07] LABS: MCH 25.6 pg (25.7-33.7); MCHC 29.9 g/dl (32.0-35.9); MEAN CELL VOLUME 85.6 fl (80-96); MEAN PLT VOLUME 8.7 fl (7.5-11.1); PLATELET COUNT 343 K/MM3 (134-434); RDW 21.8 % (11.9-15.9); WHITE BLOOD COUNT 8.4 K/mm3 (4.0-10.0)
[2016-04-03] MEDS: ALBUTEROL SO4 2.5/IPRATROPIUM 0.5 INH SOL 3 ML VIAL.NEB. NEB SCH ×3 (06:07→16:30)
[2016-04-03 07:05] LABS: ALBUMIN 2.3 g/dl (3.4-5.0); BILIRUBIN,TOTAL 0.4 mg/dL (0.2-1.0); CALCIUM 7.8 mg/dL (8.5-10.1); CREATININE 2.6 mg/dL (0.7-1.3); MAGNESIUM 2.9 mg/dL (1.8-2.4); PHOSPHOROUS 3.5 mg/dL (2.5-4.9)
[2016-04-03 07:06] LABS: TOT PROT 5.3 g/dl (6.4-8.2)
--- NOTE | 2016-04-03 09:01 | PN ---
Progress Note, Physician Chief Complaint: seen and examined in ICU no distress TELE: NSR - Current Medication List Current Medications: Active Medications Acetaminophen (Tylenol -) 650 mg PO Q6H PRN PRN Reason: FEVER OR PAIN Last Admin: 03/31/16 14:13 Dose: 650 mg Albuterol Sulfate (Ventolin 0.042trength) -) 1 amp NEB Q6H PRN PRN Reason: SHORT OF BREATH/WHEEZING Last Admin: 03/29/16 22:05 Dose: 1 amp Albuterol/Ipratropium (Duoneb -) 1 amp NEB QIDR [facility] Last Admin: 04/03/16 06:07 Dose: 1 amp Amlodipine Besylate (Norvasc -) 10 mg PO DAILY [facility] Last Admin: 04/02/16 09:19 Dose: 10 mg Aspirin (Ecotrin -) 81 mg PO DAILY [facility] Last Admin: 04/02/16 09:19 Dose: 81 mg Calcium Acetate (Phoslo -) 1,334 mg PO TIDCM [facility] Last Admin: 04/02/16 17:59 Dose: 1,334 mg Docusate Sodium (Colace -) 100 mg PO BID [facility] Last Admin: 04/02/16 21:39 Dose: 100 mg Duloxetine HCl (Cymbalta -) 40 mg PO DAILY [facility] Last Admin: 04/02/16 09:17 Dose: 40 mg Epoetin Keith (Procrit -) 20,000 unit SQ MoWeFr@1000 [facility] Last Admin: 03/31/16 10:47 Dose: 20,000 unit Heparin Sodium (Porcine) (Heparin -) 5,000 unit SQ TID [facility] Last Admin: 04/03/16 05:08 Dose: 5,000 unit Pantoprazole Sodium (Protonix 40mg Ivpb (Pre-Docked)) 100 mls @ 200 mls/hr IVPB DAILY [facility] Last Admin: 04/02/16 09:20 Dose: 200 mls/hr Aztreonam 0.5 gm/ Dextrose 50 mls @ 100 mls/hr IVPB Q8H-IV [facility] Last Admin: 04/03/16 01:10 Dose: 100 mls/hr Vancomycin HCl (Vancomycin (Pre-Docked)) 250 mls @ 166.667 mls/hr IVPB ONCE ONE Stop: 04/01/16 09:29 Polyethylene Glycol (Miralax (For Daily Use) -) 17 gm PO DAILY [facility] Last Admin: 04/02/16 09:19 Dose: 17 gm Prednisone (Deltasone -) 40 mg PO DAILY [facility] Sodium Chloride ([place] Nasal [place] -) 2 spray NS BID PRN PRN Reason: NASAL CONGESTION Last Admin: 04/01/16 22:00 Dose: 2 sprays Zinc Oxide/Panthenol/Vitamin E (Balmex Cream -) 1 applic TP ASDIR PRN PRN Reason: HYGEINE Last Admin: 04/02/16 22:00 Dose: 1 applic - Objective Vital Signs: Vital Signs Temperature 97.6 F 04/03/16 06:00 Pulse Rate 81 04/03/16 06:00 Respiratory Rate 20 04/03/16 06:00 Blood Pressure 139/71 04/03/16 06:00 O2 Sat by Pulse Oximetry (%) 96 04/02/16 21:29 Constitutional: Yes: No Distress Cardiovascular: Yes: Regular Rate and Rhythm Respiratory: Yes: Other (decreased breath sounds at bases) Gastrointestinal: Yes: Soft, Abdomen, Obese Edema: Yes Edema: LLE: 2+, RLE: 2+ Neurological: Yes: Alert, Oriented Labs: CBC, BMP 04/03/16 05:05 04/03/16 05:05 INR, PTT INR 1.27 (0.82-1.09) H 03/30/16 05:20 Fibrinogen 547.0 mg/dL (238-498) H 03/17/16 06:30 Laboratory Tests 04/03/16 04/03/16 05:05 05:05 WBC 8.4 Hgb 8.0 L Plt Count 343 Sodium 150 H BUN 78 H Creatinine 2.6 H D - ....Imaging EKG: Image Reviewed Assessment/Plan Assessment/Plan IMP: Acute on chronic hypercarbic respiratory failure Chronic COPD Sepsis, gram + Bacteremia, infected HD catheter- removed ESRD CAD REC: 1. Resp. failure: -s/p intubation, now awake and alert. -NIPPV as needed. 2. Sepsis: -gram + bacteremia; infected HD catheter removed.Surveillance cultures pending. Afebrile this AM -Abx as per ID -A repeat TTE showed no evidence of endocarditis 3. CAD: -PCI approximately one year ago -Back on ASA 81 after interval of thrombocytopenia earlier in admission 4. ESRD: -HD as per renal -replacement of HD catheter as per renal and ID
--- NOTE | 2016-04-03 09:30 | PN ---
Progress Note (short form) - Note Progress Note: Progress Note PULM/CCM Patient seen and examined in the ICU. Breathing feels about the same. Some congested cough. No hemoptysis. No CP. No HD over the weekend. CXR: Some improvement in the congestive changes/effusion Intake & Output 03/31/16 04/01/16 04/02/16 04/03/16 23:59 23:59 23:59 23:59 Intake Total 773 622 666 264 Output Total 750 1350 1900 500 Balance 23 -728 -1234 -236 Weight 261 lb 6 oz 261 lb 259 lb 6.4 oz 256 lb 6.4 oz Last Vital Signs Temp Pulse Resp BP Pulse Ox 97.6 F 81 20 139/71 96 04/03/16 06:00 04/03/16 06:00 04/03/16 06:00 04/03/16 06:00 04/02/16 21:29 Active Medications Acetaminophen (Tylenol -) 650 mg PO Q6H PRN PRN Reason: FEVER OR PAIN Last Admin: 03/31/16 14:13 Dose: 650 mg Albuterol Sulfate (Ventolin 0.042trength) -) 1 amp NEB Q6H PRN PRN Reason: SHORT OF BREATH/WHEEZING Last Admin: 03/29/16 22:05 Dose: 1 amp Albuterol/Ipratropium (Duoneb -) 1 amp NEB QIDR [facility] Last Admin: 04/03/16 06:07 Dose: 1 amp Amlodipine Besylate (Norvasc -) 10 mg PO DAILY [facility] Last Admin: 04/02/16 09:19 Dose: 10 mg Aspirin (Ecotrin -) 81 mg PO DAILY [facility] Last Admin: 04/02/16 09:19 Dose: 81 mg Calcium Acetate (Phoslo -) 1,334 mg PO TIDCM [facility] Last Admin: 04/02/16 17:59 Dose: 1,334 mg Docusate Sodium (Colace -) 100 mg PO BID [facility] Last Admin: 04/02/16 21:39 Dose: 100 mg Duloxetine HCl (Cymbalta -) 40 mg PO DAILY [facility] Last Admin: 04/02/16 09:17 Dose: 40 mg Epoetin Keith (Procrit -) 20,000 unit SQ MoWeFr@1000 [facility] Last Admin: 03/31/16 10:47 Dose: 20,000 unit Heparin Sodium (Porcine) (Heparin -) 5,000 unit SQ TID [facility] Last Admin: 04/03/16 05:08 Dose: 5,000 unit Pantoprazole Sodium (Protonix 40mg Ivpb (Pre-Docked)) 100 mls @ 200 mls/hr IVPB DAILY [facility] Last Admin: 04/02/16 09:20 Dose: 200 mls/hr Aztreonam 0.5 gm/ Dextrose 50 mls @ 100 mls/hr IVPB Q8H-IV [facility] Last Admin: 04/03/16 01:10 Dose: 100 mls/hr Vancomycin HCl (Vancomycin (Pre-Docked)) 250 mls @ 166.667 mls/hr IVPB ONCE ONE Stop: 04/01/16 09:29 Polyethylene Glycol (Miralax (For Daily Use) -) 17 gm PO DAILY [facility] Last Admin: 04/02/16 09:19 Dose: 17 gm Prednisone (Deltasone -) 40 mg PO DAILY [facility] Sodium Chloride ([place] Nasal [place] -) 2 spray NS BID PRN PRN Reason: NASAL CONGESTION Last Admin: 04/01/16 22:00 Dose: 2 sprays Zinc Oxide/Panthenol/Vitamin E (Balmex Cream -) 1 applic TP ASDIR PRN PRN Reason: HYGEINE Last Admin: 04/02/16 22:00 Dose: 1 applic Gen: Awake and alert, mildly tachypneic at rest Heart: RRR Lung: decreased breath sounds at the bases Abd: soft, nontender, obese Ext: + edema Laboratory Results - last 24 hr 04/02/16 04/02/16 04/03/16 05:35 05:35 05:05 WBC 8.4 RBC 3.11 L Hgb 8.0 L Hct 26.6 L MCV 85.6 MCHC 29.9 L RDW 21.8 H Plt Count 343 MPV 8.7 Neutrophils % 75.0 Y Lymphocytes % 18.0 D Y Monocytes % 4.0 Eosinophils % 0.0 Basophils % 0.0 Band Neutrophils 2.0 D Myelocytes 1 Differential Comment Manual diff done Platelet Estimate Adequate Anisocytosis 2+ Sodium Potassium Chloride Carbon Dioxide Anion Gap BUN Creatinine Creat Clearance w eGFR Random Glucose Calcium Phosphorus Magnesium Total Bilirubin AST ALT Alkaline Phosphatase Total Protein Albumin Random Vancomycin 14.383 04/03/16 04/03/16 05:05 05:05 WBC RBC Hgb Hct MCV MCHC RDW Plt Count MPV Neutrophils % Lymphocytes % Monocytes % Eosinophils % Basophils % Band Neutrophils Myelocytes Differential Comment Platelet Estimate Anisocytosis Sodium 150 H Potassium 5.0 Chloride 109 H Carbon Dioxide 35 H Anion Gap 6 L BUN 78 H Creatinine 2.6 H D Creat Clearance w eGFR 24.32 Random Glucose 85 D Calcium 7.8 L Phosphorus 3.5 Magnesium 2.9 H Total Bilirubin 0.4 AST 22 D ALT 18 Alkaline Phosphatase 102 Total Protein 5.3 L Albumin 2.3 L Random Vancomycin 17.765 A/P Acute on Chronic Hypercapneic and Hypoxic Respiratory Failure improving Likely Permacath Infection MRSA Bacteremia Severe Sepsis Acute on Chronic Renal Failure requiring HD Acute COPD Exacerbation Lactic Acidosis resolved Acute on Chronic LV Diastolic Heart Failure CAD Morbid Obesity JOY/OHS - Prednisone - inhaled bronchodilators standing and PRN - ABX per ID - HD per renal, ideally would like to postpone HD access until cultures clear, pt making good urine, no emergent indication for HD today - monitor urine output, creatinine - DVT/GI prophylaxis - can monitor on telemetry Dr Vasquez CCTime 35" Problem List - Problems (1) Acute kidney failure Code(s): N17.9 - ACUTE KIDNEY FAILURE, UNSPECIFIED Qualifiers: Qualified Code(s): N17.9 - Acute kidney failure, unspecified (2) COPD exacerbation Code(s): J44.1 - CHRONIC OBSTRUCTIVE PULMONARY DISEASE W (ACUTE) EXACERBATION (3) Hyperkalemia Code(s): E87.5 - HYPERKALEMIA (4) Anxiety and depression Code(s): F41.9 - ANXIETY DISORDER, UNSPECIFIED F32.9 - MAJOR DEPRESSIVE DISORDER, SINGLE EPISODE, UNSPECIFIED (5) Aortic aneurysm, intrathoracic Code(s): I71.2 - THORACIC AORTIC ANEURYSM, WITHOUT RUPTURE (6) Arteriosclerotic heart disease (ASHD) Code(s): I25.10 - ATHSCL HEART DISEASE OF [place] CORONARY ARTERY W/O ANG PCTRS (7) CRI (chronic renal insufficiency) Code(s): N18.9 - CHRONIC KIDNEY DISEASE, UNSPECIFIED (8) Chronic kidney disease (CKD) Code(s): N18.9 - CHRONIC KIDNEY DISEASE, UNSPECIFIED Qualifiers: Qualified Code(s): N18.9 - Chronic kidney disease, unspecified (9) Diabetes Code(s): E11.9 - TYPE 2 DIABETES MELLITUS WITHOUT COMPLICATIONS (10) Diastolic CHF Code(s): I50.30 - UNSPECIFIED DIASTOLIC (CONGESTIVE) HEART FAILURE (11) History of coronary artery stent placement Code(s): Z95.5 - PRESENCE OF CORONARY ANGIOPLASTY IMPLANT AND GRAFT (12) Hyperlipidemia Code(s): E78.5 - HYPERLIPIDEMIA, UNSPECIFIED (13) Hypertension Code(s): I10 - ESSENTIAL (PRIMARY) HYPERTENSION (14) Non-alcoholic fatty liver disease Code(s): K76.0 - FATTY (CHANGE OF) LIVER, NOT ELSEWHERE CLASSIFIED (15) Noncompliance with CPAP treatment Code(s): Z91.14 - PATIENT'S OTHER NONCOMPLIANCE WITH MEDICATION REGIMEN (16) Obesities, morbid Code(s): E66.01 - MORBID (SEVERE) OBESITY DUE TO EXCESS CALORIES Qualifiers: Qualified Code(s): E66.2 - Morbid (severe) obesity with alveolar hypoventilation
[2016-04-03] MEDS ORDERED: PT OWN MED DRAWER 7, Y5N ONE (09:35)
[2016-04-03] MEDS: DULoxetine HCL 20 MG CAPSULE.DR (FP) PO SCH (09:37)
[2016-04-03] MEDS: PANTOPRAZOLE SODIUM 100 ML IVPB SCH (09:37)
[2016-04-03] MEDS: amLODIPine BESYLATE 10 MG TABLET (FP) PO SCH (09:38)
[2016-04-03] MEDS: DOCUSATE SODIUM 100 MG CAPSULE (FP) PO SCH ×2 (09:38→21:30)
[2016-04-03] MEDS: ASPIRIN COATED 81 MG TABLET.EC PO SCH (09:38)
[2016-04-03] MEDS: POLYETHYLENE GLYCOL 3350 119 GM BTL PO SCH (09:38)
[2016-04-03] MEDS: CALCIUM ACETATE 667 MG CAPSULE (FP) PO SCH ×3 (09:38→18:28)
[2016-04-03] MEDS ORDERED: predniSONE 20 MG TABLET (UD) PO SCH (10:00)
[2016-04-03] MEDS: ACETAMINOPHEN 325 MG TABLET (FP) PO PRN (10:04)
--- NOTE | 2016-04-03 10:43 | PN ---
Progress Note, Physician Chief Complaint: Patient seen in ICU. feeling better. O2 by mask in place. Maintaining excellent urine output. BP and Heart rates in better range. - Current Medication List Current Medications: Active Medications Acetaminophen (Tylenol -) 650 mg PO Q6H PRN PRN Reason: FEVER OR PAIN Last Admin: 04/03/16 10:04 Dose: 650 mg Albuterol Sulfate (Ventolin 0.042trength) -) 1 amp NEB Q6H PRN PRN Reason: SHORT OF BREATH/WHEEZING Last Admin: 03/29/16 22:05 Dose: 1 amp Albuterol/Ipratropium (Duoneb -) 1 amp NEB QIDR [facility] Last Admin: 04/03/16 06:07 Dose: 1 amp Amlodipine Besylate (Norvasc -) 10 mg PO DAILY [facility] Last Admin: 04/03/16 09:38 Dose: 10 mg Aspirin (Ecotrin -) 81 mg PO DAILY [facility] Last Admin: 04/03/16 09:38 Dose: 81 mg Calcium Acetate (Phoslo -) 1,334 mg PO TIDCM [facility] Last Admin: 04/03/16 09:38 Dose: 1,334 mg Docusate Sodium (Colace -) 100 mg PO BID [facility] Last Admin: 04/03/16 09:38 Dose: Not Given Duloxetine HCl (Cymbalta -) 40 mg PO DAILY [facility] Last Admin: 04/03/16 09:37 Dose: 40 mg Epoetin Keith (Procrit -) 20,000 unit SQ MoWeFr@1000 [facility] Last Admin: 03/31/16 10:47 Dose: 20,000 unit Heparin Sodium (Porcine) (Heparin -) 5,000 unit SQ TID [facility] Last Admin: 04/03/16 05:08 Dose: 5,000 unit Pantoprazole Sodium (Protonix 40mg Ivpb (Pre-Docked)) 100 mls @ 200 mls/hr IVPB DAILY [facility] Last Admin: 04/03/16 09:37 Dose: 200 mls/hr Aztreonam 0.5 gm/ Dextrose 50 mls @ 100 mls/hr IVPB Q8H-IV [facility] Last Admin: 04/03/16 09:37 Dose: 100 mls/hr Vancomycin HCl (Vancomycin (Pre-Docked)) 250 mls @ 166.667 mls/hr IVPB ONCE ONE Stop: 04/01/16 09:29 Polyethylene Glycol (Miralax (For Daily Use) -) 17 gm PO DAILY [facility] Last Admin: 04/03/16 09:38 Dose: Not Given Prednisone (Deltasone -) 40 mg PO DAILY [facility] Last Admin: 04/03/16 09:37 Dose: 40 mg Sodium Chloride ([place] Nasal [place] -) 2 spray NS BID PRN PRN Reason: NASAL CONGESTION Last Admin: 04/01/16 22:00 Dose: 2 sprays Zinc Oxide/Panthenol/Vitamin E (Balmex Cream -) 1 applic TP ASDIR PRN PRN Reason: HYGEINE Last Admin: 04/02/16 22:00 Dose: 1 applic - Objective Vital Signs: Vital Signs Temperature 97.6 F 04/03/16 06:00 Pulse Rate 81 04/03/16 06:00 Respiratory Rate 20 04/03/16 06:00 Blood Pressure 139/71 04/03/16 06:00 O2 Sat by Pulse Oximetry (%) 96 04/02/16 21:29 Constitutional: Yes: Well Nourished, Anxious, Mild Distress Eyes: Yes: WNL HENT: Yes: WNL Neck: Yes: Supple Respiratory: Yes: Diminished, Dullness Gastrointestinal: Yes: Normal Bowel Sounds Edema: Yes Edema: LLE: 2+, RLE: 2+ Neurological: Yes: Alert, Oriented Labs: CBC, BMP 04/03/16 05:05 04/03/16 05:05 INR, PTT INR 1.27 (0.82-1.09) H 03/30/16 05:20 Fibrinogen 547.0 mg/dL (238-498) H 03/17/16 06:30 Problem List - Problems (1) Chronic kidney disease (CKD) stage G3a/A2, moderately decreased glomerular filtration rate (GFR) between 45-59 mL/min/1.73 square meter and albuminuria creatinine ratio between 30-299 mg/g Code(s): N18.3 - CHRONIC KIDNEY DISEASE, STAGE 3 (MODERATE) (2) COPD exacerbation Code(s): J44.1 - CHRONIC OBSTRUCTIVE PULMONARY DISEASE W (ACUTE) EXACERBATION (3) Acute and chronic respiratory failure ([id number]) Code(s): J96.20 - ACUTE AND CHR RESP FAILURE, UNSP W HYPOXIA OR HYPERCAPNIA Qualifiers: Qualified Code(s): J96.21 - Acute and chronic respiratory failure with hypoxia (4) Cellulitis Code(s): L03.90 - CELLULITIS, UNSPECIFIED (5) Anxiety and depression Code(s): F41.9 - ANXIETY DISORDER, UNSPECIFIED F32.9 - MAJOR DEPRESSIVE DISORDER, SINGLE EPISODE, UNSPECIFIED (6) Arteriosclerotic heart disease (ASHD) Code(s): I25.10 - ATHSCL HEART DISEASE OF [place] CORONARY ARTERY W/O ANG PCTRS (7) COPD (chronic obstructive pulmonary disease) Code(s): J44.9 - CHRONIC OBSTRUCTIVE PULMONARY DISEASE, UNSPECIFIED (8) Chronic combined systolic and diastolic CHF, NYHA class 4 Code(s): I50.42 - CHRONIC COMBINED SYSTOLIC AND DIASTOLIC HRT FAIL (9) Diabetes Code(s): E11.9 - TYPE 2 DIABETES MELLITUS WITHOUT COMPLICATIONS (10) Diastolic heart failure Code(s): I50.30 - UNSPECIFIED DIASTOLIC (CONGESTIVE) HEART FAILURE (11) Chronic kidney disease (CKD) Code(s): N18.9 - CHRONIC KIDNEY DISEASE, UNSPECIFIED Qualifiers: Qualified Code(s): N18.9 - Chronic kidney disease, unspecified Assessment/Plan Acute Kidney failure, superimposed on chronci kidney failure. The acute Azotemia is improving. maintains good urine output. >1.9 lit past 24 hours. MRSA sepsis is on going. Latest culturs pending. No indication for dialysis at this point . Will monitor the renal functions with you. Thank you. Will follow up with you. Shi Hernandez MD
--- NOTE | 2016-04-03 10:43 | PN ---
Physical Exam: SUBJECTIVE: Patient seen and examined Pt is complained of mild to moderate sob no fever, no chills, no chest pain, palpitation OBJECTIVE: Vital Signs Period Temp Pulse Resp BP Sys/[place] Pulse Ox Last 24 Hr 97.5 F-98.2 F 77-90 17-22 125-150/54-94 96-99 ENERAL: The patient is awake, alert oriented, in no distress. HEAD: Normal with no signs of trauma. EYES: PERRL, extraocular movements intact, sclera anicteric, conjunctiva clear. No ptosis. ENT: Ears normal, nares patent, oropharynx clear without exudates, dry mucous membranes. NECK: Trachea midline, full range of motion, supple. LUNGS: scattered ronchi, b/l crackles in lung bases HEART: tachycardic, Regular rate and rhythm, S1, S2 without murmur, rub or gallop. ABDOMEN: Soft, nontender, nondistended, normoactive bowel sounds, no guarding, no rebound, no hepatosplenomegaly, no masses. EXTREMITIES: 2+ pulses, warm, well-perfused. b/l lower ext edema 1+ with wrinkle skin, lower ext 1+ pulses NEUROLOGICAL: gait not observed. Strength 5/5 in all ext PSYCH: Normal mood, normal affect. SKIN: Warm, dry, wrinkled skin in b/l lower ext, edema 1+ b/l lower ext. Laboratory Results - last 24 hr 04/02/16 04/02/16 04/03/16 05:35 05:35 05:05 WBC 8.4 RBC 3.11 L Hgb 8.0 L Hct 26.6 L MCV 85.6 MCHC 29.9 L RDW 21.8 H Plt Count 343 MPV 8.7 Neutrophils % 75.0 Y Lymphocytes % 18.0 D Y Monocytes % 4.0 Eosinophils % 0.0 Basophils % 0.0 Band Neutrophils 2.0 D Myelocytes 1 Differential Comment Manual diff done Platelet Estimate Adequate Anisocytosis 2+ Sodium Potassium Chloride Carbon Dioxide Anion Gap BUN Creatinine Creat Clearance w eGFR Random Glucose Calcium Phosphorus Magnesium Total Bilirubin AST ALT Alkaline Phosphatase Total Protein Albumin Random Vancomycin 14.383 04/03/16 04/03/16 05:05 05:05 WBC RBC Hgb Hct MCV MCHC RDW Plt Count MPV Neutrophils % Lymphocytes % Monocytes % Eosinophils % Basophils % Band Neutrophils Myelocytes Differential Comment Platelet Estimate Anisocytosis Sodium 150 H Potassium 5.0 Chloride 109 H Carbon Dioxide 35 H Anion Gap 6 L BUN 78 H Creatinine 2.6 H D Creat Clearance w eGFR 24.32 Random Glucose 85 D Calcium 7.8 L Phosphorus 3.5 Magnesium 2.9 H Total Bilirubin 0.4 AST 22 D ALT 18 Alkaline Phosphatase 102 Total Protein 5.3 L Albumin 2.3 L Random Vancomycin 17.765 Active Medications Generic Name Dose Route Start Last Admin Trade Name Freq PRN Reason Stop Dose Admin Acetaminophen 650 mg 03/22/16 16:39 04/03/16 10:04 Tylenol - PO 650 mg Q6H PRN Administration FEVER OR PAIN Albuterol Sulfate 1 amp 03/27/16 10:48 03/29/16 22:05 Ventolin 0.042trength) - NEB 1 amp Q6H PRN Administration SHORT OF BREATH/WHEEZING Albuterol/Ipratropium 1 amp 03/29/16 18:00 04/03/16 06:07 Duoneb - NEB 1 amp QIDR [facility] Administration Amlodipine Besylate 10 mg 03/23/16 10:00 04/03/16 09:38 Norvasc - PO 10 mg DAILY [facility] Administration Aspirin 81 mg 03/28/16 10:00 04/03/16 09:38 Ecotrin - PO 81 mg DAILY [facility] Administration Calcium Acetate 1,334 mg 03/22/16 17:30 04/03/16 09:38 Phoslo - PO 1,334 mg TIDCM [facility] Administration Docusate Sodium 100 mg 03/27/16 22:00 04/03/16 09:38 Colace - PO Not Given BID [facility] Duloxetine HCl 40 mg 03/26/16 10:00 04/03/16 09:37 Cymbalta - PO 40 mg DAILY [facility] Administration Epoetin Keith 20,000 unit 03/24/16 10:00 03/31/16 10:47 Procrit - SQ 20,000 unit MoWeFr@1000 [facility] Administration Heparin Sodium (Porcine) 5,000 unit 03/29/16 10:00 04/03/16 05:08 Heparin - SQ 5,000 unit TID [facility] Administration Pantoprazole Sodium 100 mls @ 200 mls/hr 03/29/16 18:30 04/03/16 09:37 Protonix 40mg Ivpb (Pre-Docked) IVPB 200 mls/hr DAILY [facility] Administration Aztreonam 0.5 gm/ Dextrose 50 mls @ 100 mls/hr 03/30/16 02:00 04/03/16 09:37 IVPB 100 mls/hr Q8H-IV [facility] Administration Vancomycin HCl 250 mls @ 166.667 mls/hr 04/01/16 08:00 Vancomycin (Pre-Docked) IVPB 04/01/16 09:29 ONCE ONE Polyethylene Glycol 17 gm 03/23/16 10:00 04/03/16 09:38 Miralax (For Daily Use) - PO Not Given DAILY [facility] Prednisone 40 mg 04/03/16 10:00 04/03/16 09:37 Deltasone - PO 40 mg DAILY [facility] Administration Sodium Chloride 2 spray 03/22/16 16:39 04/01/16 22:00 [place] Nasal [place] - NS 2 sprays BID PRN Administration NASAL CONGESTION Zinc Oxide/Panthenol/Vitamin E 1 applic 03/22/16 16:39 04/02/16 22:00 Balmex Cream - TP 1 applic ASDIR PRN Administration HYGEINE CBC, BMP 04/03/16 05:05 04/03/16 05:05 CXR 04/03/16 Since 04/02/2016 at 0731 hours again noted is the large heart, unfolded aorta, congestive changes, widened mediastinum and pleural fluid. Since the prior study there is no significant change. ASSESSMENT/PLAN: 75 year old male with pmh of COPD, PVD, Chronic lower ext lymphadema, CAD with stent, CHF, CKD with baseline creatinine of 1.9, nephrolithiasis presented to the ED with complaint of shortness of breath and cellulitis, patient was fount to have acute hypercapneic respiratory failure and acute renal failure. on 03/28 pt started developing fever, chills and rigors, tachycardia, was treated with vancomycin, clindamycin and atreoname. On 03/29 further developed, pt was weak, sleepy, with fever, tachycardia, tachypnea and hypotension. Severe Sepsis from b/l lower ext cellulitis or dialysis access r/o endocarditis blood culture, MRSA from permacath, peripheral draw Pt is being treated with Vancomycin and aztreonam urine culture, negative Dr Armijo consulted US doppler lower ext showed no DVT Echocardiogram no Endocarditis erythema almost resolved. Acute hypercapneic and hypoxic respiratory failure with respitatory acidosis rt to COPD exacerbation and diastolic heart failure and pleural effusion and severe Sepsis Pt was intubated 03/29/16 in ICU, Now is extubated on 03/30/16 on nasal cannula 4 liters titrate down FiO2 On prednisone 40mg po Continue bronchodilators Dialyis per renal pt has increased sob, more congestion on CXR will give on dose of lasix 40mg IV once repeat CXR in am Permacth removed, was the source for the MRSA bacteremia s/p Thoracentesis 03/21/16 and 03/07/16 Acute on Chronic kidney Injury Continue to monitor BUN and Cr Monitor intake and output Continue Phoslo Continue Calcitriol Dialysis per renal when access placed Dialysis access after negative blood culture Normocytic anemia likely due to chronic disease and renal disease Continue to monitor CBC daily Current Hgb 8.0, PRN transfusion if Hbg less than 7 of if rapid drop and massive bleeding fecal occult blood positive, pt to follow up with GI once stable Thrombocytopenia (resolved) Hypertension Currently controlled on Norvasc Coronary artery disease s/p stenting on 03/2015 pt is on aspirin Po Constipation Pt is on Colace 100mg Po BID Pt is on miralax daily FEN Fluid: none Electrolytes: continue to monitor Nutrition: Diabetic low sodium diet Dvt prophylaxis: On heparin SQ Disposition: Ok to Transfer to 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 Visit type - Emergency Visit Emergency Visit: Yes ED Registration Date: 02/18/16 Care time: The patient presented to the Emergency Department on the above date and was hospitalized for further evaluation of their emergent condition. - New Patient This patient is new to me today: No - Critical Care Critical Care patient: Yes Total Critical Care Time (in minutes): 35 Critical Care Statement: The care of this patient involved high complexity decision making to prevent further life threatening deterioration of the patient 's condition and/or to evalute & treat vital organ system(s) failure or risk of failure.
[2016-04-03 11:51] LABS: METAMYELOCYTE 8 % (0-2)
[2016-04-03 11:52] LABS: ANISOCYTOSIS 3+; HYPOCHROMIA 3+; MICROCYTOSIS 2+; PLATELET ESTIMATE ADEQUATE (NORMAL); POIKILOCYTOSIS 3+; POLYCHROMASIA 3+
[2016-04-03 11:53] LABS: OVALOCYTES 1+; TARGET CELLS 1+; TEAR DROP CELLS 1+
[2016-04-03] MEDS: EPOETIN ALFA 20,000 UNIT/1 ML VIAL SQ SCH (12:00)
--- NOTE | 2016-04-03 14:14 | PN ---
Teaching Attending Note Name of Resident: Zachery Blum ATTENDING PHYSICIAN STATEMENT I saw and evaluated the patient. I reviewed the resident's note and discussed the case with the resident. I agree with the resident's findings and plan as documented. SUBJECTIVE: Patient is feeling short of breath with minimal labored breathing. at the bedside, no fever or chills. OBJECTIVE: Vital Signs Temperature 97.6 F 04/03/16 06:00 Pulse Rate 87 04/03/16 11:27 Respiratory Rate 20 04/03/16 06:00 Blood Pressure 139/71 04/03/16 06:00 O2 Sat by Pulse Oximetry (%) 96 04/03/16 11:27 GENERAL: Patient is AA0x3, HEAD: Normal with no signs of trauma. EYES: PERRL, extraocular movements intact, sclera anicteric, conjunctiva clear. ENT: Ears normal, oropharynx clear without exudates, moist mucous membranes. NECK: Trachea midline, full range of motion, supple. LUNGS: positive for wheezing ,no accessory muscle use, extubated on NC HEART: Regular rate and rhythm, S1, S2 without murmur, rub or gallop. ABDOMEN: Soft, obese, nontender, nondistended, normoactive bowel sounds, no guarding, no rebound, no hepatosplenomegaly, no masses. EXTREMITIES: 2+ pulses, warm, 2+ edema. NEUROLOGICAL: CN 2-12 grossly intact . PSYCH:AAOx3 , Alert awake SKIN: bilat. lower ext. stasis dermatitis. CBCD WBC 8.4 K/mm3 (4.0-10.0) 04/03/16 05:05 RBC 3.11 M/mm3 (4.00-5.60) L 04/03/16 05:05 Hgb 8.0 GM/dL (11.7-16.9) L 04/03/16 05:05 Hct 26.6 % (35.4-49) L 04/03/16 05:05 MCV 85.6 fl (80-96) 04/03/16 05:05 MCHC 29.9 g/dl (32.0-35.9) L 04/03/16 05:05 RDW 21.8 % (11.9-15.9) H 04/03/16 05:05 Plt Count 343 K/MM3 (134-434) 04/03/16 05:05 MPV 8.7 fl (7.5-11.1) 04/03/16 05:05 CMP Sodium 150 mmol/L (136-145) H 04/03/16 05:05 Potassium 5.0 mmol/L (3.5-5.1) 04/03/16 05:05 Chloride 109 mmol/L (98-107) H 04/03/16 05:05 Carbon Dioxide 35 mmol/L (21-32) H 04/03/16 05:05 Anion Gap 6 (8-16) L 04/03/16 05:05 BUN 78 mg/dL (7-18) H 04/03/16 05:05 Creatinine 2.6 mg/dL (0.7-1.3) H D 04/03/16 05:05 Creat Clearance w eGFR 24.32 (>60) 04/03/16 05:05 Random Glucose 85 mg/dL (74-106) D 04/03/16 05:05 Calcium 7.8 mg/dL (8.5-10.1) L 04/03/16 05:05 Total Bilirubin 0.4 mg/dL (0.2-1.0) 04/03/16 05:05 AST 22 U/L (15-37) D 04/03/16 05:05 ALT 18 U/L (12-78) 04/03/16 05:05 Alkaline Phosphatase 102 U/L (45-117) 04/03/16 05:05 Total Protein 5.3 g/dl (6.4-8.2) L 04/03/16 05:05 Albumin 2.3 g/dl (3.4-5.0) L 04/03/16 05:05 CARDIAC ENZYMES Creatine Kinase 20 IU/L (39-308) L 03/29/16 07:37 Troponin I < 0.02 ng/ml (0.00-0.05) 03/29/16 07:37 Current Medications Generic Name Dose Route Start Last Admin Trade Name Freq PRN Reason Stop Dose Admin Acetaminophen 650 mg 03/22/16 16:39 04/03/16 10:04 Tylenol - PO 650 mg Q6H PRN Administration FEVER OR PAIN Albuterol Sulfate 1 amp 03/27/16 10:48 03/29/16 22:05 Ventolin 0.042trength) - NEB 1 amp Q6H PRN Administration SHORT OF BREATH/WHEEZING Albuterol/Ipratropium 1 amp 03/29/16 18:00 04/03/16 09:30 Duoneb - NEB 1 amp QIDR LESLEE Administration Amlodipine Besylate 10 mg 03/23/16 10:00 04/03/16 09:38 Norvasc - PO 10 mg DAILY LESLEE Administration Aspirin 81 mg 03/28/16 10:00 04/03/16 09:38 Ecotrin - PO 81 mg DAILY LESLEE Administration Calcium Acetate 1,334 mg 03/22/16 17:30 04/03/16 12:32 Phoslo - PO 1,334 mg TIDCM LESLEE Administration Docusate Sodium 100 mg 03/27/16 22:00 04/03/16 09:38 Colace - PO Not Given BID LESLEE Duloxetine HCl 40 mg 03/26/16 10:00 04/03/16 09:37 Cymbalta - PO 40 mg DAILY LESLEE Administration Epoetin Keith 20,000 unit 03/24/16 10:00 04/03/16 12:00 Procrit - SQ 20,000 unit MoWeFr@1000 LESLEE Administration Heparin Sodium (Porcine) 5,000 unit 03/29/16 10:00 04/03/16 05:08 Heparin - SQ 5,000 unit TID LESLEE Administration Pantoprazole Sodium 100 mls @ 200 mls/hr 03/29/16 18:30 04/03/16 09:37 Protonix 40mg Ivpb (Pre-Docked) IVPB 200 mls/hr DAILY LESLEE Administration Aztreonam 0.5 gm/ Dextrose 50 mls @ 100 mls/hr 03/30/16 02:00 04/03/16 09:37 IVPB 100 mls/hr Q8H-IV LESLEE Administration Vancomycin HCl 250 mls @ 166.667 mls/hr 04/01/16 08:00 Vancomycin (Pre-Docked) IVPB 04/01/16 09:29 ONCE ONE Polyethylene Glycol 17 gm 03/23/16 10:00 04/03/16 09:38 Miralax (For Daily Use) - PO Not Given DAILY LESLEE Prednisone 40 mg 04/03/16 10:00 04/03/16 09:37 Deltasone - PO 40 mg DAILY LES[facility]E Administration Sodium Chloride 2 spray 03/22/16 16:39 04/01/16 22:00 [place] Nasal [place] - NS 2 sprays BID PRN Administration NASAL CONGESTION Zinc Oxide/Panthenol/Vitamin E 1 applic 03/22/16 16:39 04/02/16 22:00 Balmex Cream - TP 1 applic ASDIR PRN Administration HYGEINE Medication Instructions Recorded Acetaminophen W/ Codeine #3 1 tab PO Q6H PRN 02/18/16 [Tylenol # 3 -] Albuterol 0.083% Nebulizer Soni 1 amp NEB ASDIR PRN 02/18/16 [Ventolin 0.083% Nebulizer Soln -] Aspirin [Ecotrin] 81 mg PO DAILY 02/18/16 Duloxetine HCl 20 mg PO DAILY 02/18/16 Furosemide 20 mg PO HS 02/18/16 Furosemide 40 mg PO DAILY 02/18/16 Hydralazine HCl [Apresoline -] 50 mg PO HS 02/18/16 Prasugrel HCl [Effient] 10 mg PO DAILY 02/18/16 Prednisone 5 mg PO DAILY 02/18/16 Pregabalin [Lyrica] 25 mg PO DAILY 02/18/16 Microbiology 03/31/16 05:27 Blood - Peripheral Venous Blood Culture - Final Mr S Aureus 04/02/16 05:35 Blood - Peripheral Venous Blood Culture - Preliminary NO GROWTH OBTAINED AFTER 24 HOURS, INCUBATION TO CONTINUE FOR 4 DAYS. 04/02/16 05:35 Blood - Peripheral Venous Blood Culture - Preliminary NO GROWTH OBTAINED AFTER 24 HOURS, INCUBATION TO CONTINUE FOR 4 DAYS. 03/29/16 17:30 Blood - Arterial Blood Culture - Final Presumptive Mrsa (Pbp2a Pos) 03/31/16 05:27 Blood - Peripheral Venous Blood Culture - Final Mr S Aureus 03/29/16 17:30 Blood - Arterial Blood Culture - Final Presumptive Mrsa (Pbp2a Pos) 03/29/16 10:10 Body Fluid - Other Gram Stain - Final 03/29/16 10:10 Body Fluid - Other Body Fluid Culture - Final Mr S Aureus 03/29/16 10:10 Body Fluid - Other Anaerobic Culture - Final NO ANAEROBES WERE ISOLATED 03/28/16 16:30 Blood - Peripheral Venous Blood Culture - Final Mr S Aureus 03/28/16 16:30 Blood - Peripheral Venous Blood Culture - Final Mr S Aureus 03/28/16 17:45 Blood - Tawanda Cath Blood Culture - Final Mr S Aureus 03/28/16 19:30 Urine - Urine Clean Catch Urine Culture - Final NO GROWTH OBTAINED 03/21/16 Unknown Pleural Fluid AFB Smear Concentration - Final 03/21/16 Unknown Pleural Fluid Mycobacterial Culture - Preliminary 03/21/16 12:30 Pleural Fluid Gram Stain - Final 03/21/16 12:30 Pleural Fluid Body Fluid Culture - Final NO GROWTH OF AEROBIC ORGANISMS AFTER 48 HOURS INCUBATION 03/21/16 12:30 Pleural Fluid Anaerobic Culture - Final NO ANAEROBES WERE ISOLATED 03/21/16 13:43 Pleural Fluid ALANA Preparation - Preliminary 03/21/16 13:43 Pleural Fluid Fungal Culture - Preliminary 03/16/16 18:40 Blood - Peripheral Venous Blood Culture - Final NO GROWTH AFTER 5 DAYS INCUBATION 03/16/16 18:40 Blood - Peripheral Venous Blood Culture - Final NO GROWTH AFTER 5 DAYS INCUBATION 03/13/16 18:30 Blood - Peripheral Venous Blood Culture - Final NO GROWTH AFTER 5 DAYS INCUBATION 03/13/16 18:30 Blood - Peripheral Venous Blood Culture - Final NO GROWTH AFTER 5 DAYS INCUBATION 03/08/16 10:15 Blood - Peripheral Venous Blood Culture - Final NO GROWTH AFTER 5 DAYS INCUBATION 03/08/16 10:15 Blood - Peripheral Venous Blood Culture - Final NO GROWTH AFTER 5 DAYS INCUBATION 03/07/16 15:30 Pleural Fluid Gram Stain - Final 03/07/16 15:30 Pleural Fluid Body Fluid Culture - Final NO GROWTH OF AEROBIC ORGANISMS AFTER 48 HOURS INCUBATION 03/07/16 15:30 Pleural Fluid Anaerobic Culture - Final NO ANAEROBES WERE ISOLATED 03/07/16 15:30 Pleural Fluid AFB Smear Concentration - Final 03/07/16 15:30 Pleural Fluid Mycobacterial Culture - Preliminary 03/07/16 15:30 Pleural Fluid ALANA Preparation - Preliminary 03/07/16 15:30 Pleural Fluid Fungal Culture - Preliminary 02/29/16 17:40 Nasopharyngeal Swab Respiratory Virus Panel - Final 02/25/16 17:30 Blood - Peripheral Venous Blood Culture - Final NO GROWTH AFTER 5 DAYS INCUBATION 02/25/16 17:30 Blood - Peripheral Venous Blood Culture - Final NO GROWTH AFTER 5 DAYS INCUBATION 02/28/16 17:40 Nasopharyngeal Swab Influenza Types A,B Antigen (TONI) - Final 02/28/16 17:40 Nasopharyngeal Swab - Final 02/26/16 06:45 Urine - Urine Clean Catch Urine Culture - Final NO GROWTH OBTAINED 11/11/16 19:15 Blood - Peripheral Venous Blood Culture - Final NO GROWTH AFTER 5 DAYS INCUBATION 02/18/16 19:15 Blood - Peripheral Venous Blood Culture - Final NO GROWTH AFTER 5 DAYS INCUBATION 02/18/16 18:10 Urine - Urine Clean Catch Urine Culture - Final NO GROWTH OBTAINED CXR: positive for Congestion ASSESSMENT AND PLAN: 75 year-old man with a PMHx of HTN, PVD, COPD, CKD (baseline Cr 1.8), nephrolithiasis, D CHF , CAD s/p stenting in 03/23 and chronic LE lymphedema. presented with SOB and was found to have acute hypercapnic respiratory failure with acute renal failure . # s/p severe Sepsis from right sided permacath positive for MRSA s/p removal , MRSA bacteremia, echo is negative for endocarditis, will need YIMI. on Vancomycin and Azactam IV continue , urine culture negative, Dr Szymanski ID on the case. #s/p Acute on chronic hypercapnic respiratory failure s/p Intubation/ Extubation due to COPD exacerbation on VM mask , Bipap PRN Continue SoluMedrol, DuoNeb, albuterol as needed , s/p thoracentesis 03/07 and 03/21 , trudi give one dose of lasix 40mg now since mild increase in respiratory breathing. # Acute Diastolic heart failure and pleural effusions s/p R and L thoracocentesis ;off steroids # ESRD on HD further management per nephro on cacitriol and phoslo; patient has no access for HD at this time, But his Kidney function is improving, might not need further dialysis # Cellultis of LE : improved on Antibiotics continue on vancomycin # Anemia secondary to chronic kidney disease s/p transfusion. cont to monitor. Transfuse PRN Continue Procrit, PhosLo # s/p Thrombocytopenia: improved # HTN: cont norvasc # CAD : s/p Stenting 03/23 on Asa. #Obesity with BMI 37.4 #Constipation Continue Colace, Miralax DVT Px; heparin
[2016-04-03] MEDS ORDERED: FUROSEMIDE 40 MG/4 ML INJECTABLE VIAL IVPUSH ONE (15:01)
[2016-04-03] MEDS ORDERED: VANCOMYCIN 1,000 MG VIAL (RESTRICTED TO ID ONLY) IVPUSH ONE (16:36)
[2016-04-03] MEDS ORDERED: VANCOMYCIN 500 MG in DEXTROSE 5%-WATER - 100 ML IVPB ONE (17:30)
[2016-04-03] MEDS ORDERED: VANCOMYCIN 1 GRAM (PRE-DOCKED) 250 ML IVPB ONE (20:06)
[2016-04-03] MEDS ORDERED: SODIUM CHLORIDE NASAL SPRAY 44 ML BOTTLE NS PRN (20:06)
[2016-04-03] MEDS ORDERED: ZINC OXIDE/PANTHENOL/VITAMIN E 56 GM TUBE TP PRN (20:06)
[2016-04-04] MEDS: AZTREONAM 0.5 GM in DEXTROSE 5%-WATER - 50 ML IVPB SCH ×3 (01:29→20:10)
[2016-04-04] MEDS: ALBUTEROL SO4 2.5/IPRATROPIUM 0.5 INH SOL 3 ML VIAL.NEB. NEB SCH ×5 (05:50→23:30)
[2016-04-04] MEDS: HEPARIN NA (PORCINE) 5,000 UNITS/ML 1ML VIAL SQ SCH ×3 (05:57→21:23)
[2016-04-04 06:06] LABS: MCH 25.3 pg (25.7-33.7); MCHC 29.3 g/dl (32.0-35.9); MEAN CELL VOLUME 86.6 fl (80-96); PLATELET COUNT 377 K/MM3 (134-434); RDW 21.6 % (11.9-15.9); WHITE BLOOD COUNT 10.7 K/mm3 (4.0-10.0)
[2016-04-04 06:33] LABS: ALBUMIN 2.3 g/dl (3.4-5.0); CREATININE 2.2 mg/dL (0.7-1.3); MAGNESIUM 2.6 mg/dL (1.8-2.4); PHOSPHOROUS 3.4 mg/dL (2.5-4.9); TOT PROT 5.3 g/dl (6.4-8.2)
[2016-04-04 06:34] LABS: BILIRUBIN,TOTAL 0.4 mg/dL (0.2-1.0)
[2016-04-04] MEDS ORDERED: PT OWN MED DRAWER 7, Y5N ONE (08:20)
[2016-04-04] MEDS: CALCIUM ACETATE 667 MG CAPSULE (FP) PO SCH ×3 (08:23→18:22)
--- NOTE | 2016-04-04 09:10 | PN ---
Physical Exam: SUBJECTIVE: Patient seen and examined pt is awake, alert and oriented to time place and person Pt denies fever, chills, n/v Less shortness of breath than yesterday concerned about pt ability to walk again due to jail hospitalization, immobilization and severe medical condition OBJECTIVE: Vital Signs Period Temp Pulse Resp BP Sys/[place] Pulse Ox Last 24 Hr 97.6 F-97.8 F 76-93 20-24 139-167/60-81 96-96 ENERAL: The patient is awake, alert oriented, in no distress. HEAD: Normal with no signs of trauma. EYES: PERRL, extraocular movements intact, sclera anicteric, conjunctiva clear. No ptosis. ENT: Ears normal, nares patent, oropharynx clear without exudates, dry mucous membranes. NECK: Trachea midline, full range of motion, supple. LUNGS: slight improvement in scattered ronchi, b/l crackles in lung bases HEART: tachycardic, Regular rate and rhythm, S1, S2 without murmur, rub or gallop. ABDOMEN: Soft, nontender, nondistended, normoactive bowel sounds, no guarding, no rebound, no hepatosplenomegaly, no masses. EXTREMITIES: 2+ pulses, warm, well-perfused. b/l lower ext edema 1+ with wrinkle skin, lower ext 1+ pulses NEUROLOGICAL: gait not observed. Strength 5/5 in all ext PSYCH: Normal mood, normal affect. SKIN: Warm, dry, wrinkled skin in b/l lower ext, edema 1+ b/l lower ext. Laboratory Results - last 24 hr 04/03/16 04/04/16 04/04/16 05:05 05:00 05:00 WBC 10.7 H RBC 3.20 L Hgb 8.1 L Hct 27.7 L MCV 86.6 MCHC 29.3 L RDW 21.6 H Plt Count 377 MPV 9.0 Neutrophils % 65.0 Lymphocytes % 12.0 D Monocytes % 11.0 H D Band Neutrophils 4.0 D Metamyelocytes 8 H Nucleated RBCs 1 H Differential Comment Manual diff done Platelet Estimate Adequate Platelet Comment Few large plts Polychromasia 3+ Hypochromic-Microcytic 3+ Poikilocytosis 3+ Basophilic Stippling 2+ Anisocytosis 3+ Microcytosis 2+ Macrocytosis 2+ Target Cells 1+ Tear Drop Cells 1+ Ovalocytes 1+ Sodium 149 H Potassium 5.0 Chloride 108 H Carbon Dioxide 35 H Anion Gap 6 L BUN 66 H Creatinine 2.2 H Creat Clearance w eGFR 29.49 Random Glucose 91 Calcium 8.0 L Phosphorus 3.4 Magnesium 2.6 H Total Bilirubin 0.4 AST 21 ALT 18 Alkaline Phosphatase 107 Total Protein 5.3 L Albumin 2.3 L Active Medications Generic Name Dose Route Start Last Admin Trade Name Freq PRN Reason Stop Dose Admin Acetaminophen 650 mg 04/03/16 20:06 Tylenol - PO Q6H PRN FEVER OR PAIN Albuterol Sulfate 1 amp 04/03/16 20:06 Ventolin 0.042trength) - NEB Q6H PRN SHORT OF BREATH/WHEEZING Albuterol/Ipratropium 1 amp 04/04/16 00:00 04/04/16 05:50 Duoneb - NEB 1 amp QIDR LESLEE Administration Amlodipine Besylate 10 mg 04/04/16 10:00 Norvasc - PO DAILY [facility] Aspirin 81 mg 04/04/16 10:00 Ecotrin - PO DAILY [facility] Calcium Acetate 1,334 mg 04/04/16 08:00 04/04/16 08:23 Phoslo - PO 1,334 mg TIDCM LESLEE Administration Docusate Sodium 100 mg 04/03/16 22:00 04/03/16 21:30 Colace - PO 100 mg BID LESLEE Administration Duloxetine HCl 40 mg 04/04/16 10:00 Cymbalta - PO DAILY [facility] Epoetin Keith 20,000 unit 04/05/16 10:00 Procrit - SQ MoWeFr@1000 [facility] Heparin Sodium (Porcine) 5,000 unit 04/03/16 22:00 04/04/16 05:57 Heparin - SQ 5,000 unit TID LESLEE Administration Aztreonam 0.5 gm/ Dextrose 50 mls @ 100 mls/hr 04/04/16 02:00 04/04/16 01:29 IVPB 100 mls/hr Q8H-IV LESLEE Administration Pantoprazole Sodium 100 mls @ 200 mls/hr 04/04/16 10:00 Protonix 40mg Ivpb (Pre-Docked) IVPB DAILY LESLEE Vancomycin HCl 250 mls @ 166.667 mls/hr 04/03/16 20:06 Vancomycin (Pre-Docked) IVPB 04/03/16 21:35 ONCE ONE Polyethylene Glycol 17 gm 04/04/16 10:00 Miralax (For Daily Use) - PO DAILY LESLEE Prednisone 40 mg 04/04/16 10:00 Deltasone - PO DAILY LESLEE Sodium Chloride 2 spray 04/03/16 20:06 [place] Nasal [place] - NS Q12H PRN NASAL CONGESTION Zinc Oxide/Panthenol/Vitamin E 1 applic 04/03/16 20:06 Balmex Cream - TP ASDIR PRN HYGEINE CBC, BMP 04/04/16 05:00 04/04/16 05:00 Microbiology 03/31/16 05:27 Blood - Peripheral Venous Blood Culture - Final S Aureus 04/02/16 05:35 Blood - Peripheral Venous Blood Culture - Preliminary NO GROWTH OBTAINED AFTER 48 HOURS, INCUBATION TO CONTINUE FOR 3 DAYS. 04/02/16 05:35 Blood - Peripheral Venous Blood Culture - Preliminary NO GROWTH OBTAINED AFTER 48 HOURS, INCUBATION TO CONTINUE FOR 3 DAYS. 03/28/16 16:30 Blood - Peripheral Venous Blood Culture - Final S Aureus Laboratory Tests 04/03/16 04/04/16 05:05 05:00 Calcium 8.0 L Phosphorus 3.4 Magnesium 2.6 H AST 21 ALT 18 Alkaline Phosphatase 107 Albumin 2.3 L Random Vancomycin 17.765 CXR 04/04/16: A single view the chest again reveals a widened mediastinum with congestive changes, pleural fluid and possible basilar infiltrates and/or atelectasis. The patient is rotated to the left. CXR 04/03/16 Since 04/02/2016 at 0731 hours again noted is the large heart, unfolded aorta, congestive changes, widened mediastinum and pleural fluid. Since the prior study there is no significant change. ASSESSMENT/PLAN: 75 year old male with pmh of COPD, PVD, Chronic lower ext lymphadema, CAD with stent, CHF, CKD with baseline creatinine of 1.9, nephrolithiasis presented to the ED with complaint of shortness of breath and cellulitis, patient was fount to have acute hypercapneic respiratory failure and acute renal failure. on 03/28 pt started developing fever, chills and rigors, tachycardia, was treated with vancomycin, clindamycin and atreonam. On 03/29 further developed, pt was weak, sleepy, with fever, tachycardia, tachypnea and hypotension. Severe Sepsis from b/l lower ext cellulitis or dialysis access r/o endocarditis blood culture, MRSA from permacath, peripheral draw from 03/28 to 03/31/16 Pt is being treated with Vancomycin and aztreonam New blood culture on 04/02/16 negative for 48 hours, continue too follow urine culture, negative Dr Armijo consulted US doppler lower ext showed no DVT Echocardiogram no Endocarditis lower ext erythema almost resolved. Acute hypercapneic and hypoxic respiratory failure with respitatory acidosis rt to COPD exacerbation and diastolic heart failure and pleural effusion and severe Sepsis Pt was intubated 03/29/16 in ICU, Now is extubated on 03/30/16 on venti-mask 40 % titrate down FiO2 On prednisone 40mg po Continue bronchodilators Dialysis per renal Stable congestion on CXR negative fluid balance yesterday 3 Liter repeat CXR in am Permacth removed, was the source for the MRSA bacteremia s/p Thoracentesis 03/21/16 and 03/07/16 Acute on Chronic kidney Injury Continue to monitor BUN and Cr Monitor intake and output Continue Phoslo Continue Calcitriol Dialysis per renal when access placed Dialysis access after negative blood culture Normocytic anemia likely due to chronic disease and renal disease Continue to monitor CBC daily Current Hgb 8.0, PRN transfusion if Hbg less than 7 of if rapid drop and massive bleeding fecal occult blood positive, pt to follow up with GI once stable Thrombocytopenia (resolved) Hypertension Currently controlled on Norvasc Coronary artery disease s/p stenting on 03/2015 pt is on aspirin Po Constipation Pt is on Colace 100mg Po BID Pt is on miralax daily FEN Fluid: none Electrolytes: continue to monitor Nutrition: Diabetic low sodium diet Dvt prophylaxis: On heparin SQ Disposition: transfer to floor when bed available Visit type - Emergency Visit Emergency Visit: Yes ED Registration Date: 02/18/16 Care time: The patient presented to the Emergency Department on the above date and was hospitalized for further evaluation of their emergent condition. - New Patient This patient is new to me today: No - Critical Care Critical Care patient: Yes Total Critical Care Time (in minutes): 35 Critical Care Statement: The care of this patient involved high complexity decision making to prevent further life threatening deterioration of the patient 's condition and/or to evalute & treat vital organ system(s) failure or risk of failure.
--- NOTE | 2016-04-04 09:14 | PN ---
Progress Note, Physician Chief Complaint: TELE: NSR alert, no distress History of Present Illness: Received Lasix yesterday, negative 3 L according to Is and Os - Current Medication List Current Medications: Active Medications Acetaminophen (Tylenol -) 650 mg PO Q6H PRN PRN Reason: FEVER OR PAIN Albuterol Sulfate (Ventolin 0.042trength) -) 1 amp NEB Q6H PRN PRN Reason: SHORT OF BREATH/WHEEZING Albuterol/Ipratropium (Duoneb -) 1 amp NEB QIDR [facility] Last Admin: 04/04/16 05:50 Dose: 1 amp Amlodipine Besylate (Norvasc -) 10 mg PO DAILY [facility] Aspirin (Ecotrin -) 81 mg PO DAILY [facility] Calcium Acetate (Phoslo -) 1,334 mg PO TIDCM [facility] Last Admin: 04/04/16 08:23 Dose: 1,334 mg Docusate Sodium (Colace -) 100 mg PO BID [facility] Last Admin: 04/03/16 21:30 Dose: 100 mg Duloxetine HCl (Cymbalta -) 40 mg PO DAILY [facility] Epoetin Keith (Procrit -) 20,000 unit SQ MoWeFr@1000 [facility] Heparin Sodium (Porcine) (Heparin -) 5,000 unit SQ TID [facility] Last Admin: 04/04/16 05:57 Dose: 5,000 unit Aztreonam 0.5 gm/ Dextrose 50 mls @ 100 mls/hr IVPB Q8H-IV [facility] Last Admin: 04/04/16 01:29 Dose: 100 mls/hr Pantoprazole Sodium (Protonix 40mg Ivpb (Pre-Docked)) 100 mls @ 200 mls/hr IVPB DAILY [facility] Vancomycin HCl (Vancomycin (Pre-Docked)) 250 mls @ 166.667 mls/hr IVPB ONCE ONE Stop: 04/03/16 21:35 Polyethylene Glycol (Miralax (For Daily Use) -) 17 gm PO DAILY [facility] Prednisone (Deltasone -) 40 mg PO DAILY [facility] Sodium Chloride ([place] Nasal [place] -) 2 spray NS Q12H PRN PRN Reason: NASAL CONGESTION Zinc Oxide/Panthenol/Vitamin E (Balmex Cream -) 1 applic TP ASDIR PRN PRN Reason: HYGEINE - Objective Vital Signs: Vital Signs Temperature 97.6 F 04/04/16 06:00 Pulse Rate 93 H 04/04/16 06:00 Respiratory Rate 21 04/04/16 06:00 Blood Pressure 139/60 04/04/16 06:00 O2 Sat by Pulse Oximetry (%) 96 04/03/16 22:00 Constitutional: Yes: No Distress Cardiovascular: Yes: Regular Rate and Rhythm Respiratory: Yes: Other (decreased breath sounds at bases) Gastrointestinal: Yes: Soft, Abdomen, Obese Edema: Yes Neurological: Yes: Alert Labs: CBC, BMP 04/04/16 05:00 04/04/16 05:00 INR, PTT INR 1.27 (0.82-1.09) H 03/30/16 05:20 Fibrinogen 547.0 mg/dL (238-498) H 03/17/16 06:30 Microbiology 04/02/16 05:35 Blood - Peripheral Venous Blood Culture - Preliminary NO GROWTH OBTAINED AFTER 48 HOURS, INCUBATION TO CONTINUE FOR 3 DAYS. 04/02/16 05:35 Blood - Peripheral Venous Blood Culture - Preliminary NO GROWTH OBTAINED AFTER 48 HOURS, INCUBATION TO CONTINUE FOR 3 DAYS. Laboratory Tests 04/04/16 04/04/16 05:00 05:00 WBC 10.7 H Hgb 8.1 L Plt Count 377 Sodium 149 H Potassium 5.0 BUN 66 H Creatinine 2.2 H - ....Imaging EKG: Image Reviewed Assessment/Plan IMP: Acute on chronic hypercarbic respiratory failure Chronic COPD Sepsis, gram + Bacteremia, infected HD catheter- removed ESRD CAD REC: 1. Resp. failure: -s/p intubation, now awake and alert. -NIPPV as needed. 2. Sepsis: -gram + bacteremia; infected HD catheter removed.Surveillance cultures pending with last set remaining NGTD -Abx as per ID -A repeat TTE showed no evidence of endocarditis 3. CAD: -PCI approximately one year ago -Back on ASA 81 after interval of thrombocytopenia earlier in admission 4. ESRD: -HD as per renal -replacement of HD catheter as per renal and ID -Lasix PRN, would dose again today
[2016-04-04] MEDS: ASPIRIN COATED 81 MG TABLET.EC PO SCH (10:36)
[2016-04-04] MEDS: predniSONE 20 MG TABLET (UD) PO SCH (10:36)
[2016-04-04] MEDS: DOCUSATE SODIUM 100 MG CAPSULE (FP) PO SCH ×2 (10:36→21:26)
[2016-04-04] MEDS: DULoxetine HCL 20 MG CAPSULE.DR (FP) PO SCH (10:36)
[2016-04-04] MEDS: amLODIPine BESYLATE 10 MG TABLET (FP) PO SCH (10:37)
[2016-04-04] MEDS: PANTOPRAZOLE SODIUM 100 ML IVPB SCH (10:37)
[2016-04-04] MEDS: POLYETHYLENE GLYCOL 3350 119 GM BTL PO SCH (11:46)
[2016-04-04 11:53] LABS: METAMYELOCYTE 7 % (0-2)
--- NOTE | 2016-04-04 12:36 | PN ---
Teaching Attending Note Name of Resident: Lambert Ventura ATTENDING PHYSICIAN STATEMENT I saw and evaluated the patient. I reviewed the resident's note and discussed the case with the resident. I agree with the resident's findings and plan as documented. SUBJECTIVE: Patient seen and examined in the ICU. Breathing feels about the same. Some congested cough. No hemoptysis. No CP. HD has been on hold. CXR: Some mild increase in right effusion Intake & Output 04/01/16 04/02/16 04/03/16 04/04/16 23:59 23:59 23:59 23:59 Intake Total 622 666 264 350 Output Total 1350 1900 3300 900 Balance -728 -1234 -3036 -550 Weight 261 lb 259 lb 6.4 oz 256 lb 6.4 oz 256 lb 13.416 oz Last Vital Signs Temp Pulse Resp BP Pulse Ox 97.6 F 90 21 139/60 94 L 04/04/16 06:00 04/04/16 09:30 04/04/16 06:00 04/04/16 06:00 04/04/16 09:30 Active Medications Acetaminophen (Tylenol -) 650 mg PO Q6H PRN PRN Reason: FEVER OR PAIN Albuterol Sulfate (Ventolin 0.042trength) -) 1 amp NEB Q6H PRN PRN Reason: SHORT OF BREATH/WHEEZING Albuterol/Ipratropium (Duoneb -) 1 amp NEB QIDR [facility] Last Admin: 04/04/16 10:45 Dose: 1 amp Amlodipine Besylate (Norvasc -) 10 mg PO DAILY [facility] Last Admin: 04/04/16 10:37 Dose: 10 mg Aspirin (Ecotrin -) 81 mg PO DAILY [facility] Last Admin: 04/04/16 10:36 Dose: 81 mg Calcium Acetate (Phoslo -) 1,334 mg PO TIDCM [facility] Last Admin: 04/04/16 11:51 Dose: 1,334 mg Docusate Sodium (Colace -) 100 mg PO BID [facility] Last Admin: 04/04/16 10:36 Dose: 100 mg Duloxetine HCl (Cymbalta -) 40 mg PO DAILY [facility] Last Admin: 04/04/16 10:36 Dose: 40 mg Epoetin Keith (Procrit -) 20,000 unit SQ MoWeFr@1000 [facility] Heparin Sodium (Porcine) (Heparin -) 5,000 unit SQ TID [facility] Last Admin: 04/04/16 05:57 Dose: 5,000 unit Aztreonam 0.5 gm/ Dextrose 50 mls @ 100 mls/hr IVPB Q8H-IV [facility] Last Admin: 04/04/16 10:48 Dose: 100 mls/hr Pantoprazole Sodium (Protonix 40mg Ivpb (Pre-Docked)) 100 mls @ 200 mls/hr IVPB DAILY [facility] Last Admin: 04/04/16 10:37 Dose: 200 mls/hr Vancomycin HCl (Vancomycin (Pre-Docked)) 250 mls @ 166.667 mls/hr IVPB ONCE ONE Stop: 04/03/16 21:35 Polyethylene Glycol (Miralax (For Daily Use) -) 17 gm PO DAILY [facility] Last Admin: 04/04/16 11:46 Dose: 17 grams Prednisone (Deltasone -) 40 mg PO DAILY [facility] Last Admin: 04/04/16 10:36 Dose: 40 mg Sodium Chloride ([place] Nasal [place] -) 2 spray NS Q12H PRN PRN Reason: NASAL CONGESTION Zinc Oxide/Panthenol/Vitamin E (Balmex Cream -) 1 applic TP ASDIR PRN PRN Reason: HYGEINE Gen: Awake and alert, Less tachypneic Heart: RRR Lung: decreased breath sounds at the bases Abd: soft, nontender, obese Ext: + edema Laboratory Results - last 24 hr 04/04/16 04/04/16 04/04/16 05:00 05:00 05:00 WBC 10.7 H RBC 3.20 L Hgb 8.1 L Hct 27.7 L MCV 86.6 MCHC 29.3 L RDW 21.6 H Plt Count 377 MPV 9.0 Neutrophils % 63.0 Lymphocytes % 11.0 Monocytes % 7.0 Eosinophils % 1.0 D Band Neutrophils 3.0 D Metamyelocytes 7 H Myelocytes 8 H D Differential Comment Manual diff done Sodium 149 H Potassium 5.0 Chloride 108 H Carbon Dioxide 35 H Anion Gap 6 L BUN 66 H Creatinine 2.2 H Creat Clearance w eGFR 29.49 Random Glucose 91 Calcium 8.0 L Phosphorus 3.4 Magnesium 2.6 H Total Bilirubin 0.4 AST 21 ALT 18 Alkaline Phosphatase 107 Total Protein 5.3 L Albumin 2.3 L Random Vancomycin 18.821 Problem List - Problems (1) Acute kidney failure Code(s): N17.9 - ACUTE KIDNEY FAILURE, UNSPECIFIED Qualifiers: Qualified Code(s): N17.9 - Acute kidney failure, unspecified (2) COPD exacerbation Code(s): J44.1 - CHRONIC OBSTRUCTIVE PULMONARY DISEASE W (ACUTE) EXACERBATION (3) Hyperkalemia Code(s): E87.5 - HYPERKALEMIA (4) Anxiety and depression Code(s): F41.9 - ANXIETY DISORDER, UNSPECIFIED F32.9 - MAJOR DEPRESSIVE DISORDER, SINGLE EPISODE, UNSPECIFIED (5) Aortic aneurysm, intrathoracic Code(s): I71.2 - THORACIC AORTIC ANEURYSM, WITHOUT RUPTURE (6) Arteriosclerotic heart disease (ASHD) Code(s): I25.10 - ATHSCL HEART DISEASE OF [place] CORONARY ARTERY W/O ANG PCTRS (7) CRI (chronic renal insufficiency) Code(s): N18.9 - CHRONIC KIDNEY DISEASE, UNSPECIFIED (8) Chronic kidney disease (CKD) Code(s): N18.9 - CHRONIC KIDNEY DISEASE, UNSPECIFIED Qualifiers: Qualified Code(s): N18.9 - Chronic kidney disease, unspecified (9) Diabetes Code(s): E11.9 - TYPE 2 DIABETES MELLITUS WITHOUT COMPLICATIONS (10) Diastolic CHF Code(s): I50.30 - UNSPECIFIED DIASTOLIC (CONGESTIVE) HEART FAILURE (11) History of coronary artery stent placement Code(s): Z95.5 - PRESENCE OF CORONARY ANGIOPLASTY IMPLANT AND GRAFT (12) Hyperlipidemia Code(s): E78.5 - HYPERLIPIDEMIA, UNSPECIFIED (13) Hypertension Code(s): I10 - ESSENTIAL (PRIMARY) HYPERTENSION (14) Non-alcoholic fatty liver disease Code(s): K76.0 - FATTY (CHANGE OF) LIVER, NOT ELSEWHERE CLASSIFIED (15) Noncompliance with CPAP treatment Code(s): Z91.14 - PATIENT'S OTHER NONCOMPLIANCE WITH MEDICATION REGIMEN (16) Obesities, morbid Code(s): E66.01 - MORBID (SEVERE) OBESITY DUE TO EXCESS CALORIES Qualifiers: Qualified Code(s): E66.2 - Morbid (severe) obesity with alveolar hypoventilation A/P Acute on Chronic Hypercapneic and Hypoxic Respiratory Failure improving Likely Permacath Infection MRSA Bacteremia Severe Sepsis Acute on Chronic Renal Failure requiring HD Acute COPD Exacerbation Lactic Acidosis resolved Acute on Chronic LV Diastolic Heart Failure CAD Morbid Obesity JOY/OHS - Prednisone - inhaled bronchodilators standing and PRN - ABX per ID - Off HD per renal - monitor urine output, creatinine - DVT/GI prophylaxis - can monitor on telemetry Dr Vasquez CCTime 35" Problem List - Problems (1) Acute kidney failure Code(s): N17.9 - ACUTE KIDNEY FAILURE, UNSPECIFIED Qualifiers: Qualified Code(s): N17.9 - Acute kidney failure, unspecified (2) COPD exacerbation Code(s): J44.1 - CHRONIC OBSTRUCTIVE PULMONARY DISEASE W (ACUTE) EXACERBATION (3) Hyperkalemia Code(s): E87.5 - HYPERKALEMIA (4) Anxiety and depression Code(s): F41.9 - ANXIETY DISORDER, UNSPECIFIED F32.9 - MAJOR DEPRESSIVE DISORDER, SINGLE EPISODE, UNSPECIFIED (5) Aortic aneurysm, intrathoracic Code(s): I71.2 - THORACIC AORTIC ANEURYSM, WITHOUT RUPTURE (6) Arteriosclerotic heart disease (ASHD) Code(s): I25.10 - ATHSCL HEART DISEASE OF [place] CORONARY ARTERY W/O ANG PCTRS (7) CRI (chronic renal insufficiency) Code(s): N18.9 - CHRONIC KIDNEY DISEASE, UNSPECIFIED (8) Chronic kidney disease (CKD) Code(s): N18.9 - CHRONIC KIDNEY DISEASE, UNSPECIFIED Qualifiers: Qualified Code(s): N18.9 - Chronic kidney disease, unspecified (9) Diabetes Code(s): E11.9 - TYPE 2 DIABETES MELLITUS WITHOUT COMPLICATIONS (10) Diastolic CHF Code(s): I50.30 - UNSPECIFIED DIASTOLIC (CONGESTIVE) HEART FAILURE (11) History of coronary artery stent placement Code(s): Z95.5 - PRESENCE OF CORONARY ANGIOPLASTY IMPLANT AND GRAFT (12) Hyperlipidemia Code(s): E78.5 - HYPERLIPIDEMIA, UNSPECIFIED (13) Hypertension Code(s): I10 - ESSENTIAL (PRIMARY) HYPERTENSION (14) Non-alcoholic fatty liver disease Code(s): K76.0 - FATTY (CHANGE OF) LIVER, NOT ELSEWHERE CLASSIFIED (15) Noncompliance with CPAP treatment Code(s): Z91.14 - PATIENT'S OTHER NONCOMPLIANCE WITH MEDICATION REGIMEN (16) Obesities, morbid Code(s): E66.01 - MORBID (SEVERE) OBESITY DUE TO EXCESS CALORIES Qualifiers: Qualified Code(s): E66.2 - Morbid (severe) obesity with alveolar hypoventilation
[2016-04-04] MEDS ORDERED: FUROSEMIDE 40 MG/4 ML INJECTABLE VIAL IVPB ONE (13:21)
--- NOTE | 2016-04-04 14:07 | PN ---
Teaching Attending Note Name of Resident: Zachery Blum ATTENDING PHYSICIAN STATEMENT I saw and evaluated the patient. I reviewed the resident's note and discussed the case with the resident. I agree with the resident's findings and plan as documented. SUBJECTIVE: Patient is feeling better today, at bedside, no nausea or vomiting, no shortness of breath, on VM. OBJECTIVE: Vital Signs Temperature 98.2 F 04/04/16 10:00 Pulse Rate 93 H 04/04/16 10:00 Respiratory Rate 24 04/04/16 10:00 Blood Pressure 105/80 04/04/16 10:00 O2 Sat by Pulse Oximetry (%) 94 L 04/04/16 10:00 GENERAL: Patient is AA0x3, HEAD: Normal with no signs of trauma. EYES: PERRL, extraocular movements intact, sclera anicteric, conjunctiva clear. ENT: Ears normal, oropharynx clear without exudates, moist mucous membranes. NECK: Trachea midline, full range of motion, supple. LUNGS: positive for wheezing ,no accessory muscle use, extubated on NC HEART: Regular rate and rhythm, S1, S2 positive, MEERA 2/6 ABDOMEN: Soft, large abdomen ,obese, nontender, nondistended, normoactive bowel sounds, no guarding, no rebound. EXTREMITIES: 2+ pulses, warm, 1 plus edema b/l NEUROLOGICAL: CN 2-12 grossly intact . PSYCH:AAOx3 , Alert awake SKIN: bilat. lower ext. stasis dermatitis. CBCD WBC 10.7 K/mm3 (4.0-10.0) H 04/04/16 05:00 RBC 3.20 M/mm3 (4.00-5.60) L 04/04/16 05:00 Hgb 8.1 GM/dL (11.7-16.9) L 04/04/16 05:00 Hct 27.7 % (35.4-49) L 04/04/16 05:00 MCV 86.6 fl (80-96) 04/04/16 05:00 MCHC 29.3 g/dl (32.0-35.9) L 04/04/16 05:00 RDW 21.6 % (11.9-15.9) H 04/04/16 05:00 Plt Count 377 K/MM3 (134-434) 04/04/16 05:00 MPV 9.0 fl (7.5-11.1) 04/04/16 05:00 CMP Sodium 149 mmol/L (136-145) H 04/04/16 05:00 Potassium 5.0 mmol/L (3.5-5.1) 04/04/16 05:00 Chloride 108 mmol/L (98-107) H 04/04/16 05:00 Carbon Dioxide 35 mmol/L (21-32) H 04/04/16 05:00 Anion Gap 6 (8-16) L 04/04/16 05:00 BUN 66 mg/dL (7-18) H 04/04/16 05:00 Creatinine 2.2 mg/dL (0.7-1.3) H 04/04/16 05:00 Creat Clearance w eGFR 29.49 (>60) 04/04/16 05:00 Random Glucose 91 mg/dL (74-106) 04/04/16 05:00 Calcium 8.0 mg/dL (8.5-10.1) L 04/04/16 05:00 Total Bilirubin 0.4 mg/dL (0.2-1.0) 04/04/16 05:00 AST 21 U/L (15-37) 04/04/16 05:00 ALT 18 U/L (12-78) 04/04/16 05:00 Alkaline Phosphatase 107 U/L (45-117) 04/04/16 05:00 Total Protein 5.3 g/dl (6.4-8.2) L 04/04/16 05:00 Albumin 2.3 g/dl (3.4-5.0) L 04/04/16 05:00 CARDIAC ENZYMES Creatine Kinase 20 IU/L (39-308) L 03/29/16 07:37 Troponin I < 0.02 ng/ml (0.00-0.05) 03/29/16 07:37 Intake & Output 04/01/16 04/02/16 04/03/16 04/04/16 23:59 23:59 23:59 23:59 Intake Total 992 666 264 350 Output Total 1350 1900 3300 900 Balance -728 -1234 -3036 -550 Weight 261 lb 259 lb 6.4 oz 256 lb 6.4 oz 256 lb 13.416 oz CXR: positive for Congestion ASSESSMENT AND PLAN: 75 year-old man with a PMHx of HTN, PVD, COPD, CKD (baseline Cr 1.8), nephrolithiasis, D CHF , CAD s/p stenting in 03/23 and chronic LE lymphedema. presented with SOB and was found to have acute hypercapnic respiratory failure with acute renal failure . 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 On Vancomycin and Azactam IV continue , urine culture negative, Dr Szymanski ID on the case. #s/p Acute on chronic hypercapnic respiratory failure s/p Intubation/ Extubation due to COPD exacerbation on VM mask now , Bipap PRN Continue SoluMedrol, DuoNeb, albuterol as needed , s/p thoracentesis 03/07 and 03/21 , lasix IV prn. # Acute Diastolic heart failure and pleural effusions s/p R and L thoracocentesis ;off steroids. Lasix prn # ESRD on HD further management per nephro on cacitriol and phoslo; patient has no access for HD at this time, But his Kidney function is improving, might not need further dialysis # Cellultis of LE : improved on Antibiotics continue on vancomycin # Anemia secondary to chronic kidney disease s/p transfusion. cont to monitor. Transfuse PRN Continue Procrit, PhosLo; Hemoglobinis 8.1 today transfuse as needed, follow the level for am # s/p Thrombocytopenia: improved # HTN: cont norvasc # CAD : s/p Stenting 03/23 on [place]. #Obesity with BMI 37.4 #Constipation Continue Colace, Miralax DVT Px; heparin
--- NOTE | 2016-04-04 14:29 | PN ---
Progress Note (short form) - Note Progress Note: Renal Follow up for KARLOS Pt seen and examined in the ICU no acute complaints no fevers or chills No sob, chest pain, Abd pain, N/V/D Good urine output with lasix yesterday Vital Signs Temperature 98.2 F 04/04/16 10:00 Pulse Rate 93 H 04/04/16 10:00 Respiratory Rate 24 04/04/16 10:00 Blood Pressure 105/80 04/04/16 10:00 O2 Sat by Pulse Oximetry (%) 94 L 04/04/16 10:00 Intake & Output 04/01/16 04/02/16 04/03/16 04/04/16 23:59 23:59 23:59 23:59 Intake Total 622 666 264 762 Output Total 1350 1900 3300 900 Balance -728 -1234 -3036 -138 Weight 261 lb 259 lb 6.4 oz 256 lb 6.4 oz 256 lb 13.416 oz Gen: NAD CVS: RRR No M/R Lungs: dec BS throughout the lung rey Abd: Soft NT + Mild distension Ext: 1+ edema CBC, BMP 04/04/16 05:00 04/04/16 05:00 Laboratory Tests 04/04/16 05:00 Calcium 8.0 L Phosphorus 3.4 Magnesium 2.6 H Albumin 2.3 L Current Medications Acetaminophen (Tylenol -) 650 mg PO Q6H PRN PRN Reason: FEVER OR PAIN Albuterol Sulfate (Ventolin 0.042trength) -) 1 amp NEB Q6H PRN PRN Reason: SHORT OF BREATH/WHEEZING Albuterol/Ipratropium (Duoneb -) 1 amp NEB QIDR [facility] Last Admin: 04/04/16 10:45 Dose: 1 amp Amlodipine Besylate (Norvasc -) 10 mg PO DAILY [facility] Last Admin: 04/04/16 10:37 Dose: 10 mg Aspirin (Ecotrin -) 81 mg PO DAILY [facility] Last Admin: 04/04/16 10:36 Dose: 81 mg Calcium Acetate (Phoslo -) 1,334 mg PO TIDCM [facility] Last Admin: 04/04/16 11:51 Dose: 1,334 mg Docusate Sodium (Colace -) 100 mg PO BID [facility] Last Admin: 04/04/16 10:36 Dose: 100 mg Duloxetine HCl (Cymbalta -) 40 mg PO DAILY [facility] Last Admin: 04/04/16 10:36 Dose: 40 mg Epoetin Keith (Procrit -) 20,000 unit SQ MoWeFr@1000 [facility] Heparin Sodium (Porcine) (Heparin -) 5,000 unit SQ TID [facility] Last Admin: 04/04/16 14:00 Dose: 5,000 unit Aztreonam 0.5 gm/ Dextrose 50 mls @ 100 mls/hr IVPB Q8H-IV [facility] Last Admin: 04/04/16 10:48 Dose: 100 mls/hr Pantoprazole Sodium (Protonix 40mg Ivpb (Pre-Docked)) 100 mls @ 200 mls/hr IVPB DAILY [facility] Last Admin: 04/04/16 10:37 Dose: 200 mls/hr Vancomycin HCl (Vancomycin (Pre-Docked)) 250 mls @ 166.667 mls/hr IVPB ONCE ONE Stop: 04/03/16 21:35 Polyethylene Glycol (Miralax (For Daily Use) -) 17 gm PO DAILY [facility] Last Admin: 04/04/16 11:46 Dose: 17 grams Prednisone (Deltasone -) 40 mg PO DAILY [facility] Last Admin: 04/04/16 10:36 Dose: 40 mg Sodium Chloride ([place] Nasal [place] -) 2 spray NS Q12H PRN PRN Reason: NASAL CONGESTION Zinc Oxide/Panthenol/Vitamin E (Balmex Cream -) 1 applic TP ASDIR PRN PRN Reason: HYGEINE A/P 75 year old Gentleman with PMhx of CKD Stage 3 (baseline Cr 1.9), Hx of Nephrolithiasis, Hypertension, COPD, CHF, PVD, Chronic LE lymph edema who was sent into the ED from wound care for increased lethargy and decreased urination for several days with KARLOS with BUN/Cr of 115/7.2 and K of 6.5 #Acute on Chronic Renal failure with volume overload Renal function improved and stable pt with good urine output with Loop diuretics no indication for L[employer] GR[employer] at this time can continue diuretics as needed to achieve negative balance Dose all meds for Cr Cl less then 30 #MRSA Bactermia from dialysis catheter infection Repeat blood cultures from 04/02 w/o growth Continue Vanco dosed by levels ID following YIMI 03/30 w/o Veg #Anemia Continur Procrit TIW Transfuse as per ICU protocol Melvin Johnson DO
--- NOTE | 2016-04-04 14:37 | PN ---
Progress Note, Physician History of Present Illness: patient looks much better no issues no new events patient on venti ask doing well - Current Medication List Current Medications: Active Medications Acetaminophen (Tylenol -) 650 mg PO Q6H PRN PRN Reason: FEVER OR PAIN Albuterol Sulfate (Ventolin 0.042trength) -) 1 amp NEB Q6H PRN PRN Reason: SHORT OF BREATH/WHEEZING Albuterol/Ipratropium (Duoneb -) 1 amp NEB QIDR [facility] Last Admin: 04/04/16 10:45 Dose: 1 amp Amlodipine Besylate (Norvasc -) 10 mg PO DAILY [facility] Last Admin: 04/04/16 10:37 Dose: 10 mg Aspirin (Ecotrin -) 81 mg PO DAILY [facility] Last Admin: 04/04/16 10:36 Dose: 81 mg Calcium Acetate (Phoslo -) 1,334 mg PO TIDCM [facility] Last Admin: 04/04/16 11:51 Dose: 1,334 mg Docusate Sodium (Colace -) 100 mg PO BID [facility] Last Admin: 04/04/16 10:36 Dose: 100 mg Duloxetine HCl (Cymbalta -) 40 mg PO DAILY [facility] Last Admin: 04/04/16 10:36 Dose: 40 mg Epoetin Keith (Procrit -) 20,000 unit SQ MoWeFr@1000 [facility] Heparin Sodium (Porcine) (Heparin -) 5,000 unit SQ TID [facility] Last Admin: 04/04/16 14:00 Dose: 5,000 unit Aztreonam 0.5 gm/ Dextrose 50 mls @ 100 mls/hr IVPB Q8H-IV [facility] Last Admin: 04/04/16 10:48 Dose: 100 mls/hr Pantoprazole Sodium (Protonix 40mg Ivpb (Pre-Docked)) 100 mls @ 200 mls/hr IVPB DAILY [facility] Last Admin: 04/04/16 10:37 Dose: 200 mls/hr Vancomycin HCl (Vancomycin (Pre-Docked)) 250 mls @ 166.667 mls/hr IVPB ONCE ONE Stop: 04/03/16 21:35 Polyethylene Glycol (Miralax (For Daily Use) -) 17 gm PO DAILY [facility] Last Admin: 04/04/16 11:46 Dose: 17 grams Prednisone (Deltasone -) 40 mg PO DAILY [facility] Last Admin: 04/04/16 10:36 Dose: 40 mg Sodium Chloride ([place] Nasal [place] -) 2 spray NS Q12H PRN PRN Reason: NASAL CONGESTION Zinc Oxide/Panthenol/Vitamin E (Balmex Cream -) 1 applic TP ASDIR PRN PRN Reason: HYGEINE - Objective Vital Signs: Vital Signs Temperature 98.2 F 04/04/16 10:00 Pulse Rate 93 H 04/04/16 10:00 Respiratory Rate 24 04/04/16 10:00 Blood Pressure 105/80 04/04/16 10:00 O2 Sat by Pulse Oximetry (%) 94 L 04/04/16 10:00 Constitutional: Yes: No Distress, Calm Cardiovascular: Yes: Regular Rate and Rhythm Respiratory: Yes: Poor Air Entry, Rhonchi Gastrointestinal: Yes: Normal Bowel Sounds, Soft Musculoskeletal: Yes: Other Extremities: Yes: Other Integumentary: Yes: Other Neurological: Yes: Alert, Oriented Psychiatric: Yes: Alert Labs: CBC, BMP 04/04/16 05:00 04/04/16 05:00 INR, PTT INR 1.27 (0.82-1.09) H 03/30/16 05:20 Fibrinogen 547.0 mg/dL (238-498) H 03/17/16 06:30 Assessment/Plan 75 year-old man with a PMH of HTN, PVD, COPD, CKD (baseline Cr 1.9), nephrolithiasis, and chronic LE lymphedema. Admitted in acute renal failure. Acute on chronic renal failure Hyperkalemia Sepsis s Hypertension Peripheral vascular disease Hypercarbic respiratory failure COPD bilateral cellulitis of the legs rsv lung infection pleural effusion anemia fevers gm positive bacteremia mrsa bacteremia plan cellulitis improving blood cx negative will continue vanco cc time 40 min
--- NOTE | 2016-04-04 14:51 | PN ---
Physical Exam: SUBJECTIVE: Patient seen and examined at bedside. No overnight events. No new complaints. Breathing has improved. Feels much better. Denies CP, [place], PALPITATIONS, Abdominal pain, N/V. OBJECTIVE: Vital Signs Period Temp Pulse Resp BP Sys/[place] Pulse Ox Last 24 Hr 97.6 F-98.2 F 76-96 20-24 93-167/59-81 94-96 GENERAL: The patient is awake, alert,in no acute distress. HEAD: Normal with no signs of trauma. EYES: PERRL, extraocular movements intact, sclera anicteric, conjunctiva clear. No ptosis. ENT: hearing is grossly intact. . NECK: supple, No JVD LUNGS:decreased breath sounds bibasilarly. HEART: Regular rate and rhythm, S1, S2 without murmur, rub or gallop. ABDOMEN: Soft, nontender,obese EXTREMITIES: 1+ bilateral pedal pulses. 1+ edema. NEUROLOGICAL: awake and alert. PSYCH: Normal mood, normal affect. SKIN: lower ext. dermatitis. Laboratory Results - last 24 hr 04/04/16 04/04/16 04/04/16 05:00 05:00 05:00 WBC 10.7 H RBC 3.20 L Hgb 8.1 L Hct 27.7 L MCV 86.6 MCHC 29.3 L RDW 21.6 H Plt Count 377 MPV 9.0 Neutrophils % 63.0 Lymphocytes % 11.0 Monocytes % 7.0 Eosinophils % 1.0 D Band Neutrophils 3.0 D Metamyelocytes 7 H Myelocytes 8 H D Differential Comment Manual diff done Sodium 149 H Potassium 5.0 Chloride 108 H Carbon Dioxide 35 H Anion Gap 6 L BUN 66 H Creatinine 2.2 H Creat Clearance w eGFR 29.49 Random Glucose 91 Calcium 8.0 L Phosphorus 3.4 Magnesium 2.6 H Total Bilirubin 0.4 AST 21 ALT 18 Alkaline Phosphatase 107 Total Protein 5.3 L Albumin 2.3 L Random Vancomycin 18.821 Active Medications Generic Name Dose Route Start Last Admin Trade Name Freq PRN Reason Stop Dose Admin Acetaminophen 650 mg 04/03/16 20:06 Tylenol - PO Q6H PRN FEVER OR PAIN Albuterol Sulfate 1 amp 04/03/16 20:06 Ventolin 0.042trength) - NEB Q6H PRN SHORT OF BREATH/WHEEZING Albuterol/Ipratropium 1 amp 04/04/16 00:00 04/04/16 10:45 Duoneb - NEB 1 amp QIDR [facility] Administration Amlodipine Besylate 10 mg 04/04/16 10:00 04/04/16 10:37 Norvasc - PO 10 mg DAILY [facility] Administration Aspirin 81 mg 04/04/16 10:00 04/04/16 10:36 Ecotrin - PO 81 mg DAILY [facility] Administration Calcium Acetate 1,334 mg 04/04/16 08:00 04/04/16 11:51 Phoslo - PO 1,334 mg TIDCM [facility] Administration Docusate Sodium 100 mg 04/03/16 22:00 04/04/16 10:36 Colace - PO 100 mg BID [facility] Administration Duloxetine HCl 40 mg 04/04/16 10:00 04/04/16 10:36 Cymbalta - PO 40 mg DAILY [facility] Administration Epoetin Keith 20,000 unit 04/05/16 10:00 Procrit - SQ MoWeFr@1000 [facility] Heparin Sodium (Porcine) 5,000 unit 04/03/16 22:00 04/04/16 14:00 Heparin - SQ 5,000 unit TID [facility] Administration Aztreonam 0.5 gm/ Dextrose 50 mls @ 100 mls/hr 04/04/16 02:00 04/04/16 10:48 IVPB 100 mls/hr Q8H-IV [facility] Administration Pantoprazole Sodium 100 mls @ 200 mls/hr 04/04/16 10:00 04/04/16 10:37 Protonix 40mg Ivpb (Pre-Docked) IVPB 200 mls/hr DAILY [facility] Administration Vancomycin HCl 250 mls @ 166.667 mls/hr 04/03/16 20:06 Vancomycin (Pre-Docked) IVPB 04/03/16 21:35 ONCE ONE Polyethylene Glycol 17 gm 04/04/16 10:00 04/04/16 11:46 Miralax (For Daily Use) - PO 17 grams DAILY [facility] Administration Prednisone 40 mg 04/04/16 10:00 04/04/16 10:36 Deltasone - PO 40 mg DAILY [facility] Administration Sodium Chloride 2 spray 04/03/16 20:06 [place] Nasal [place] - NS Q12H PRN NASAL CONGESTION Vancomycin HCl 250 mg 04/04/16 14:37 Vancomycin IVPUSH 04/04/16 14:38 ONCE ONE Zinc Oxide/Panthenol/Vitamin E 1 applic 04/03/16 20:06 Balmex Cream - TP ASDIR PRN HYGEINE ASSESSMENT/PLAN: 75 yo M with extensive hospital stay transferred down for hypotension, fevers and altered mental status. Patient improved today. extubated on on non- rebreather consider transfer to floors once bed available. . Neuro: -Continue supplemental O2 with 50% venti mask. Pulmonary: - Continue IV medrol 60mg q8h - inhaled bronchodilators standing and PRN ID: - continue vanco - random vanc level 15 - trend lactic acid - Presumptive MRSA from blood cultures. Renal: - HD per renal - will hold for now as there is no absolute need for HD at this time - will restart once afibrile DVT/GI prophylaxis - Protonix 40mg IV daily - Heparin 5000U TID Visit type - Emergency Visit Emergency Visit: Yes ED Registration Date: 02/18/16 Care time: The patient presented to the Emergency Department on the above date and was hospitalized for further evaluation of their emergent condition. - New Patient This patient is new to me today: No - Critical Care Critical Care patient: Yes Total Critical Care Time (in minutes): 35 Critical Care Statement: The care of this patient involved high complexity decision making to prevent further life threatening deterioration of the patient 's condition and/or to evalute & treat vital organ system(s) failure or risk of failure.
--- NOTE | 2016-04-04 15:12 | PN ---
Progress Note, Physician History of Present Illness: Alert. NAD Remains extubated with decreased dyspnea - Current Medication List Current Medications: Active Medications Acetaminophen (Tylenol -) 650 mg PO Q6H PRN PRN Reason: FEVER OR PAIN Albuterol Sulfate (Ventolin 0.042trength) -) 1 amp NEB Q6H PRN PRN Reason: SHORT OF BREATH/WHEEZING Albuterol/Ipratropium (Duoneb -) 1 amp NEB QIDR [facility] Last Admin: 04/04/16 10:45 Dose: 1 amp Amlodipine Besylate (Norvasc -) 10 mg PO DAILY [facility] Last Admin: 04/04/16 10:37 Dose: 10 mg Aspirin (Ecotrin -) 81 mg PO DAILY [facility] Last Admin: 04/04/16 10:36 Dose: 81 mg Calcium Acetate (Phoslo -) 1,334 mg PO TIDCM [facility] Last Admin: 04/04/16 11:51 Dose: 1,334 mg Docusate Sodium (Colace -) 100 mg PO BID [facility] Last Admin: 04/04/16 10:36 Dose: 100 mg Duloxetine HCl (Cymbalta -) 40 mg PO DAILY [facility] Last Admin: 04/04/16 10:36 Dose: 40 mg Epoetin Keith (Procrit -) 20,000 unit SQ MoWeFr@1000 [facility] Heparin Sodium (Porcine) (Heparin -) 5,000 unit SQ TID [facility] Last Admin: 04/04/16 14:00 Dose: 5,000 unit Aztreonam 0.5 gm/ Dextrose 50 mls @ 100 mls/hr IVPB Q8H-IV [facility] Last Admin: 04/04/16 10:48 Dose: 100 mls/hr Pantoprazole Sodium (Protonix 40mg Ivpb (Pre-Docked)) 100 mls @ 200 mls/hr IVPB DAILY [facility] Last Admin: 04/04/16 10:37 Dose: 200 mls/hr Vancomycin HCl (Vancomycin (Pre-Docked)) 250 mls @ 166.667 mls/hr IVPB ONCE ONE Stop: 04/03/16 21:35 Polyethylene Glycol (Miralax (For Daily Use) -) 17 gm PO DAILY [facility] Last Admin: 04/04/16 11:46 Dose: 17 grams Prednisone (Deltasone -) 40 mg PO DAILY [facility] Last Admin: 04/04/16 10:36 Dose: 40 mg Sodium Chloride ([place]al [place] -) 2 spray NS Q12H PRN PRN Reason: NASAL CONGESTION Vancomycin HCl (Vancomycin) 250 mg IVPUSH ONCE ONE Stop: 04/04/16 14:38 Zinc Oxide/Panthenol/Vitamin E (Balmex Cream -) 1 applic TP ASDIR PRN PRN Reason: HYGEINE - Objective Vital Signs: Vital Signs Temperature 98.2 F 04/04/16 10:00 Pulse Rate 93 H 04/04/16 10:00 Respiratory Rate 24 04/04/16 10:00 Blood Pressure 105/80 04/04/16 10:00 O2 Sat by Pulse Oximetry (%) 94 L 04/04/16 10:00 Constitutional: Yes: No Distress Eyes: No: Sclera Icterus HENT: Yes: Atraumatic, Normocephalic Neck: Yes: Supple, Trachea Midline Cardiovascular: Yes: Regular Rate and Rhythm. No: JVD Respiratory: Yes: CTA Bilaterally Gastrointestinal: Yes: Soft. No: Tenderness Edema: Yes Edema: LLE: 1+, RLE: 1+ Neurological: Yes: Alert, Oriented Labs: CBC, BMP 04/04/16 05:00 04/04/16 05:00 INR, PTT INR 1.27 (0.82-1.09) H 03/30/16 05:20 Fibrinogen 547.0 mg/dL (238-498) H 03/17/16 06:30 - ....Imaging Chest X-ray: Report Reviewed, Image Reviewed (bilateral effusions) Problem List - Problems (1) COPD exacerbation Code(s): J44.1 - CHRONIC OBSTRUCTIVE PULMONARY DISEASE W (ACUTE) EXACERBATION (2) Acute and chronic respiratory failure ([id number]) Code(s): J96.20 - ACUTE AND CHR RESP FAILURE, UNSP W HYPOXIA OR HYPERCAPNIA Qualifiers: Qualified Code(s): J96.21 - Acute and chronic respiratory failure with hypoxia (3) Acute kidney failure Code(s): N17.9 - ACUTE KIDNEY FAILURE, UNSPECIFIED Qualifiers: Qualified Code(s): N17.9 - Acute kidney failure, unspecified (4) Chronic kidney disease (CKD) Code(s): N18.9 - CHRONIC KIDNEY DISEASE, UNSPECIFIED Qualifiers: Qualified Code(s): N18.9 - Chronic kidney disease, unspecified (5) Cellulitis Code(s): L03.90 - CELLULITIS, UNSPECIFIED (6) Hyperkalemia Code(s): E87.5 - HYPERKALEMIA (7) Arteriosclerotic heart disease (ASHD) Code(s): I25.10 - ATHSCL HEART DISEASE OF [place] CORONARY ARTERY W/O ANG PCTRS (8) Obesities, morbid Code(s): E66.01 - MORBID (SEVERE) OBESITY DUE TO EXCESS CALORIES Qualifiers: Qualified Code(s): E66.2 - Morbid (severe) obesity with alveolar hypoventilation Assessment/Plan Acute on Chronic Respiratory failure: patient remains extubated Sepis-MRSA COPD Exacerbation Acute on Chronic Respiratory Failure Morbid Obesity Acute and Chronic Renal Failure ASHD CHF-developing increased sized pleural effusions Plan: BiPAP PRN Antibiotic per I.D. Inhaled bronchodilators IV steroids: taper as medical condition stabilizes
[2016-04-04] MEDS ORDERED: VANCOMYCIN 1 GRAM (PRE-DOCKED) 1,000 MG/250 ML BAG IVPB ONE (15:30)
[2016-04-05] MEDS: AZTREONAM 0.5 GM in DEXTROSE 5%-WATER - 50 ML IVPB SCH ×3 (01:24→17:00)
[2016-04-05] MEDS: HEPARIN NA (PORCINE) 5,000 UNITS/ML 1ML VIAL SQ SCH ×3 (05:19→21:12)
[2016-04-05] MEDS: ALBUTEROL SO4 2.5/IPRATROPIUM 0.5 INH SOL 3 ML VIAL.NEB. NEB SCH ×3 (06:39→18:00)
[2016-04-05 08:20] LABS: MCH 26.1 pg (25.7-33.7); MCHC 30.3 g/dl (32.0-35.9); MEAN CELL VOLUME 86.4 fl (80-96); MEAN PLT VOLUME 8.3 fl (7.5-11.1); PLATELET COUNT 386 K/MM3 (134-434); RDW 22.6 % (11.9-15.9); WHITE BLOOD COUNT 11.4 K/mm3 (4.0-10.0)
[2016-04-05] MEDS ORDERED: PT OWN MED DRAWER 7, Y5N ONE ×4 (08:37→16:25)
--- NOTE | 2016-04-05 08:54 | PN ---
Progress Note, Physician Chief Complaint: no distress TELE: NSR History of Present Illness: afebrile - Current Medication List Current Medications: Active Medications Acetaminophen (Tylenol -) 650 mg PO Q6H PRN PRN Reason: FEVER OR PAIN Albuterol Sulfate (Ventolin 0.042trength) -) 1 amp NEB Q6H PRN PRN Reason: SHORT OF BREATH/WHEEZING Albuterol/Ipratropium (Duoneb -) 1 amp NEB QIDR [facility] Last Admin: 04/05/16 06:39 Dose: 1 amp Amlodipine Besylate (Norvasc -) 10 mg PO DAILY [facility] Last Admin: 04/04/16 10:37 Dose: 10 mg Aspirin (Ecotrin -) 81 mg PO DAILY [facility] Last Admin: 04/04/16 10:36 Dose: 81 mg Calcium Acetate (Phoslo -) 1,334 mg PO TIDCM [facility] Last Admin: 04/04/16 18:22 Dose: 1,334 mg Docusate Sodium (Colace -) 100 mg PO BID [facility] Last Admin: 04/04/16 21:26 Dose: 100 mg Duloxetine HCl (Cymbalta -) 40 mg PO DAILY [facility] Last Admin: 04/04/16 10:36 Dose: 40 mg Epoetin Keith (Procrit -) 20,000 unit SQ MoWeFr@1000 [facility] Heparin Sodium (Porcine) (Heparin -) 5,000 unit SQ TID [facility] Last Admin: 04/05/16 05:19 Dose: 5,000 unit Aztreonam 0.5 gm/ Dextrose 50 mls @ 100 mls/hr IVPB Q8H-IV [facility] Last Admin: 04/05/16 01:24 Dose: 100 mls/hr Pantoprazole Sodium (Protonix 40mg Ivpb (Pre-Docked)) 100 mls @ 200 mls/hr IVPB DAILY [facility] Last Admin: 04/04/16 10:37 Dose: 200 mls/hr Vancomycin HCl (Vancomycin (Pre-Docked)) 250 mls @ 166.667 mls/hr IVPB ONCE ONE Stop: 04/03/16 21:35 Polyethylene Glycol (Miralax (For Daily Use) -) 17 gm PO DAILY [facility] Last Admin: 04/04/16 11:46 Dose: 17 grams Prednisone (Deltasone -) 40 mg PO DAILY [facility] Last Admin: 04/04/16 10:36 Dose: 40 mg Sodium Chloride ([place]al [place] -) 2 spray NS Q12H PRN PRN Reason: NASAL CONGESTION Zinc Oxide/Panthenol/Vitamin E (Balmex Cream -) 1 applic TP ASDIR PRN PRN Reason: HYGEINE - Objective Vital Signs: Vital Signs Temperature 97.2 F L 04/05/16 06:00 Pulse Rate 90 04/05/16 06:00 Respiratory Rate 20 04/05/16 06:00 Blood Pressure 134/70 04/05/16 06:00 O2 Sat by Pulse Oximetry (%) 95 04/04/16 21:00 Constitutional: Yes: No Distress Cardiovascular: Yes: Regular Rate and Rhythm Respiratory: Yes: Other (no wheezing; clear anteriorly) Gastrointestinal: Yes: Soft, Abdomen, Obese Edema: Yes Edema: LLE: 2+, RLE: 2+ Neurological: Yes: Alert Labs: CBC, BMP 04/05/16 06:30 INR, PTT INR 1.27 (0.82-1.09) H 03/30/16 05:20 Fibrinogen 547.0 mg/dL (238-498) H 03/17/16 06:30 Microbiology 04/02/16 05:35 Blood - Peripheral Venous Blood Culture - Preliminary NO GROWTH OBTAINED AFTER 72 HOURS, INCUBATION TO CONTINUE FOR 2 DAYS. 04/02/16 05:35 Blood - Peripheral Venous Blood Culture - Preliminary NO GROWTH OBTAINED AFTER 72 HOURS, INCUBATION TO CONTINUE FOR 2 DAYS. Laboratory Tests 04/05/16 04/05/16 06:30 06:30 WBC 11.4 H Hgb 8.9 L Plt Count 386 Sodium Pending BUN Pending Creatinine Pending - ....Imaging EKG: Image Reviewed Assessment/Plan IMP: Acute on chronic hypercarbic respiratory failure Chronic COPD Sepsis, gram + Bacteremia, infected HD catheter- removed ESRD CAD REC: 1. Resp. failure: -s/p intubation, now awake and alert. -NIPPV as needed. 2. Sepsis: -gram + bacteremia; infected HD catheter removed.Surveillance cultures pending with last set remaining NGTD -Abx as per ID -A repeat TTE showed no evidence of endocarditis several days ago 3. CAD: -PCI approximately one year ago -Back on ASA 81 after interval of thrombocytopenia earlier in admission 4. ESRD: -HD as per renal -replacement of HD catheter as per renal and ID -Lasix PRN
[2016-04-05] MEDS: CALCIUM ACETATE 667 MG CAPSULE (FP) PO SCH ×3 (08:58→17:00)
[2016-04-05] MEDS: predniSONE 20 MG TABLET (UD) PO SCH (08:59)
[2016-04-05] MEDS: DOCUSATE SODIUM 100 MG CAPSULE (FP) PO SCH ×2 (08:59→21:12)
[2016-04-05] MEDS: amLODIPine BESYLATE 10 MG TABLET (FP) PO SCH (08:59)
[2016-04-05] MEDS: POLYETHYLENE GLYCOL 3350 119 GM BTL PO SCH (08:59)
[2016-04-05] MEDS: DULoxetine HCL 20 MG CAPSULE.DR (FP) PO SCH (08:59)
[2016-04-05] MEDS: ASPIRIN COATED 81 MG TABLET.EC PO SCH (08:59)
[2016-04-05] MEDS: PANTOPRAZOLE SODIUM 100 ML IVPB SCH (09:00)
[2016-04-05 09:29] LABS: CALCIUM 8.5 mg/dL (8.5-10.1); MAGNESIUM 2.6 mg/dL (1.8-2.4); PHOSPHOROUS 3.4 mg/dL (2.5-4.9)
[2016-04-05] MEDS: EPOETIN ALFA 20,000 UNIT/1 ML VIAL SQ SCH (09:32)
[2016-04-05] MEDS: ALBUTEROL SO4 0.042% IH SOL 1.25 MG/3 ML VIAL.NEB NEB PRN ×2 (09:51→15:23)
[2016-04-05] MEDS ORDERED: FUROSEMIDE 40 MG/4 ML INJECTABLE VIAL IVPUSH ONE (11:00)
[2016-04-05 11:30] LABS: METAMYELOCYTE 12 % (0-2)
--- NOTE | 2016-04-05 11:38 | PN ---
Progress Note (short form) - Note Progress Note: Renal Follow up for KARLOS Pt seen and examined at the bedside awake and alert complains of sob getting Nebs at this time no chest pain, abd pain, fever, chills Vital Signs Temperature 98.7 F 04/05/16 10:00 Pulse Rate 94 H 04/05/16 10:00 Respiratory Rate 20 04/05/16 10:00 Blood Pressure 147/79 04/05/16 10:00 O2 Sat by Pulse Oximetry (%) 92 L 04/05/16 10:00 Intake & Output 04/02/16 04/03/16 04/04/16 04/05/16 23:59 23:59 23:59 23:59 Intake Total 140 010 8438 120 Output Total 1900 3300 3000 500 Balance -1234 -3036 -1118 -380 Weight 259 lb 6.4 oz 256 lb 6.4 oz 256 lb 13.416 oz Gen: NAD CVS: RRR No M/R Lungs: dec BS throughout the lung rey Abd: Soft NT + Mild distension Ext: 1+ edema CBC, BMP 04/05/16 06:30 04/05/16 06:30 Current Medications Acetaminophen (Tylenol -) 650 mg PO Q6H PRN PRN Reason: FEVER OR PAIN Albuterol Sulfate (Ventolin 0.042trength) -) 1 amp NEB Q6H PRN PRN Reason: SHORT OF BREATH/WHEEZING Last Admin: 04/05/16 09:51 Dose: 1 amp Albuterol/Ipratropium (Duoneb -) 1 amp NEB QIDR [facility] Last Admin: 04/05/16 06:39 Dose: 1 amp Amlodipine Besylate (Norvasc -) 10 mg PO DAILY [facility] Last Admin: 04/05/16 08:59 Dose: 10 mg Aspirin (Ecotrin -) 81 mg PO DAILY [facility] Last Admin: 04/05/16 08:59 Dose: 81 mg Calcium Acetate (Phoslo -) 1,334 mg PO TIDCM [facility] Last Admin: 04/05/16 08:58 Dose: 1,334 mg Docusate Sodium (Colace -) 100 mg PO BID [facility] Last Admin: 04/05/16 08:59 Dose: 100 mg Duloxetine HCl (Cymbalta -) 40 mg PO DAILY [facility] Last Admin: 04/05/16 08:59 Dose: 40 mg Epoetin Keith (Procrit -) 20,000 unit SQ MoWeFr@1000 [facility] Last Admin: 04/05/16 09:32 Dose: 20,000 unit Heparin Sodium (Porcine) (Heparin -) 5,000 unit SQ TID [facility] Last Admin: 04/05/16 05:19 Dose: 5,000 unit Aztreonam 0.5 gm/ Dextrose 50 mls @ 100 mls/hr IVPB Q8H-IV [facility] Last Admin: 04/05/16 09:31 Dose: 100 mls/hr Pantoprazole Sodium (Protonix 40mg Ivpb (Pre-Docked)) 100 mls @ 200 mls/hr IVPB DAILY [facility] Last Admin: 04/05/16 09:00 Dose: 200 mls/hr Vancomycin HCl (Vancomycin (Pre-Docked)) 250 mls @ 166.667 mls/hr IVPB ONCE ONE Stop: 04/03/16 21:35 Polyethylene Glycol (Miralax (For Daily Use) -) 17 gm PO DAILY [facility] Last Admin: 04/05/16 08:59 Dose: 17 grams Prednisone (Deltasone -) 40 mg PO DAILY [facility] Last Admin: 04/05/16 08:59 Dose: 40 mg Sodium Chloride ([place] Nasal [place] -) 2 spray NS Q12H PRN PRN Reason: NASAL CONGESTION Zinc Oxide/Panthenol/Vitamin E (Balmex Cream -) 1 applic TP ASDIR PRN PRN Reason: HYGEINE A/P 75 year old Gentleman with PMhx of CKD Stage 3 (baseline Cr 1.9), Hx of Nephrolithiasis, Hypertension, COPD, CHF, PVD, Chronic LE lymph edema who was sent into the ED from wound care for increased lethargy and decreased urination for several days with KARLOS with BUN/Cr of 115/7.2 and K of 6.5 #Acute on Chronic Renal failure with volume overload Renal function improved good urine output no indication for dialysis continue IV lasix to keep pt net negative #MRSA Bactermia from dialysis catheter infection Repeat blood cultures from 04/02 w/o growth Continue Vanco dosed by levels ID following YIMI 03/30 w/o Veg #Anemia Continue Procrit TIW Transfuse as per ICU protocol Melvin Johnson DO
--- NOTE | 2016-04-05 11:58 | PN ---
Progress Note, Physician History of Present Illness: Pt out of ICU, now is on Telemetry Unit NAD. Oriented and alert. - Current Medication List Current Medications: Active Medications Acetaminophen (Tylenol -) 650 mg PO Q6H PRN PRN Reason: FEVER OR PAIN Albuterol Sulfate (Ventolin 0.042trength) -) 1 amp NEB Q6H PRN PRN Reason: SHORT OF BREATH/WHEEZING Last Admin: 04/05/16 09:51 Dose: 1 amp Albuterol/Ipratropium (Duoneb -) 1 amp NEB QIDR [facility] Last Admin: 04/05/16 06:39 Dose: 1 amp Amlodipine Besylate (Norvasc -) 10 mg PO DAILY [facility] Last Admin: 04/05/16 08:59 Dose: 10 mg Aspirin (Ecotrin -) 81 mg PO DAILY [facility] Last Admin: 04/05/16 08:59 Dose: 81 mg Calcium Acetate (Phoslo -) 1,334 mg PO TIDCM [facility] Last Admin: 04/05/16 08:58 Dose: 1,334 mg Docusate Sodium (Colace -) 100 mg PO BID [facility] Last Admin: 04/05/16 08:59 Dose: 100 mg Duloxetine HCl (Cymbalta -) 40 mg PO DAILY [facility] Last Admin: 04/05/16 08:59 Dose: 40 mg Epoetin Keith (Procrit -) 20,000 unit SQ MoWeFr@1000 [facility] Last Admin: 04/05/16 09:32 Dose: 20,000 unit Heparin Sodium (Porcine) (Heparin -) 5,000 unit SQ TID [facility] Last Admin: 04/05/16 05:19 Dose: 5,000 unit Aztreonam 0.5 gm/ Dextrose 50 mls @ 100 mls/hr IVPB Q8H-IV [facility] Last Admin: 04/05/16 09:31 Dose: 100 mls/hr Pantoprazole Sodium (Protonix 40mg Ivpb (Pre-Docked)) 100 mls @ 200 mls/hr IVPB DAILY [facility] Last Admin: 04/05/16 09:00 Dose: 200 mls/hr Vancomycin HCl (Vancomycin (Pre-Docked)) 250 mls @ 166.667 mls/hr IVPB ONCE ONE Stop: 04/03/16 21:35 Polyethylene Glycol (Miralax (For Daily Use) -) 17 gm PO DAILY [facility] Last Admin: 04/05/16 08:59 Dose: 17 grams Prednisone (Deltasone -) 40 mg PO DAILY [facility] Last Admin: 04/05/16 08:59 Dose: 40 mg Sodium Chloride ([place] Nasal [place] -) 2 spray NS Q12H PRN PRN Reason: NASAL CONGESTION Zinc Oxide/Panthenol/Vitamin E (Balmex Cream -) 1 applic TP ASDIR PRN PRN Reason: HYGEINE - Objective Vital Signs: Vital Signs Temperature 98.7 F 04/05/16 10:00 Pulse Rate 94 H 04/05/16 10:00 Respiratory Rate 20 04/05/16 10:00 Blood Pressure 147/79 04/05/16 10:00 O2 Sat by Pulse Oximetry (%) 92 L 04/05/16 10:00 Constitutional: Yes: Mild Distress (secondary to dyspnea) Eyes: No: Sclera Icterus HENT: Yes: Atraumatic, Normocephalic Neck: Yes: Supple, Trachea Midline Cardiovascular: Yes: Regular Rate and Rhythm. No: JVD Respiratory: Yes: Diminished Gastrointestinal: Yes: Soft. No: Tenderness Extremities: No: Calf Tenderness Edema: No Neurological: Yes: Alert, Oriented Labs: CBC, BMP 04/05/16 06:30 04/05/16 06:30 INR, PTT INR 1.27 (0.82-1.09) H 03/30/16 05:20 Fibrinogen 547.0 mg/dL (238-498) H 03/17/16 06:30 Blood cultures 04/02 and 04/05: [facility] Problem List - Problems (1) COPD exacerbation Code(s): J44.1 - CHRONIC OBSTRUCTIVE PULMONARY DISEASE W (ACUTE) EXACERBATION (2) Acute and chronic respiratory failure ([id number]) Code(s): J96.20 - ACUTE AND CHR RESP FAILURE, UNSP W HYPOXIA OR HYPERCAPNIA Qualifiers: Qualified Code(s): J96.21 - Acute and chronic respiratory failure with hypoxia (3) Acute kidney failure Code(s): N17.9 - ACUTE KIDNEY FAILURE, UNSPECIFIED Qualifiers: Qualified Code(s): N17.9 - Acute kidney failure, unspecified (4) Chronic kidney disease (CKD) Code(s): N18.9 - CHRONIC KIDNEY DISEASE, UNSPECIFIED Qualifiers: Qualified Code(s): N18.9 - Chronic kidney disease, unspecified (5) Cellulitis Code(s): L03.90 - CELLULITIS, UNSPECIFIED (6) Hyperkalemia Code(s): E87.5 - HYPERKALEMIA (7) Arteriosclerotic heart disease (ASHD) Code(s): I25.10 - ATHSCL HEART DISEASE OF [place] CORONARY ARTERY W/O ANG PCTRS (8) Obesities, morbid Code(s): E66.01 - MORBID (SEVERE) OBESITY DUE TO EXCESS CALORIES Qualifiers: Qualified Code(s): E66.2 - Morbid (severe) obesity with alveolar hypoventilation Assessment/Plan Acute on Chronic Respiratory failure:respiratory status improved;patient remains extubated Sepis-MRSA: on antibiotics. Latest blood cultures: no growth COPD Exacerbation Acute on Chronic Respiratory Failure Morbid Obesity Acute and Chronic Renal Failure: improved. Creat. down to 2. Pt off dialysis ASHD CHF-improved Plan: BiPAP PRN Antibiotic per I.D. Inhaled bronchodilators Prednisone taper-pt was on maintenance dose of 10 mg daily prior to hospitalization O2 to maintain SaO2>90 Bedside PT. restarted
--- NOTE | 2016-04-05 17:27 | PN ---
Physical Exam: SUBJECTIVE: Patient seen and examined This morning pt was irritable Pt was worried about not being able to get in touch with the Minimal shortness of breath NO chest pain, palpitation, no fever or chills, no n/v OBJECTIVE: Vital Signs Period Temp Pulse Resp BP Sys/[place] Pulse Ox Last 24 Hr 97.2 F-98.7 F 85-96 20-24 134-151/68-79 92-95 ENERAL: The patient is awake, alert oriented, in no distress. HEAD: Normal with no signs of trauma. EYES: PERRL, extraocular movements intact, sclera anicteric, conjunctiva clear. No ptosis. ENT: Ears normal, nares patent, oropharynx clear without exudates, dry mucous membranes. NECK: Trachea midline, full range of motion, supple. LUNGS: slight improvement in scattered ronchi, b/l crackles in lung bases HEART: tachycardic, Regular rate and rhythm, S1, S2 without murmur, rub or gallop. ABDOMEN: Soft, nontender, nondistended, normoactive bowel sounds, no guarding, no rebound, no hepatosplenomegaly, no masses. EXTREMITIES: 2+ pulses, warm, well-perfused. b/l lower ext edema 1+ with wrinkle skin, lower ext 1+ pulses NEUROLOGICAL: gait not observed. Strength 5/5 in all ext PSYCH: anxious mood, normal affect. SKIN: Warm, dry, wrinkled skin in b/l lower ext, edema 1+ b/l lower ext. Laboratory Results - last 24 hr 04/05/16 04/05/16 04/05/16 06:30 06:30 06:30 WBC 11.4 H RBC 3.42 L Hgb 8.9 L Hct 29.5 L MCV 86.4 MCHC 30.3 L RDW 22.6 H Plt Count 386 MPV 8.3 Neutrophils % 71.0 Lymphocytes % 8.0 D Monocytes % 6.0 Band Neutrophils 1.0 D Metamyelocytes 12 H D Myelocytes 2 D Differential Comment Manual diff done Basophilic Stippling 1+ Sodium 147 H Potassium 4.9 Chloride 107 Carbon Dioxide 33 H Anion Gap 7 L BUN 58 H Creatinine 2.0 H Random Glucose 83 Calcium 8.5 Phosphorus 3.4 Magnesium 2.6 H Random Vancomycin 20.773 Active Medications Generic Name Dose Route Start Last Admin Trade Name Freq PRN Reason Stop Dose Admin Acetaminophen 650 mg 04/03/16 20:06 Tylenol - PO Q6H PRN FEVER OR PAIN Albuterol Sulfate 1 amp 04/03/16 20:06 04/05/16 15:23 Ventolin 0.042trength) - NEB 1 amp Q6H PRN Administration SHORT OF BREATH/WHEEZING Albuterol/Ipratropium 1 amp 04/04/16 00:00 04/05/16 12:01 Duoneb - NEB 1 amp QIDR [facility] Administration Amlodipine Besylate 10 mg 04/04/16 10:00 04/05/16 08:59 Norvasc - PO 10 mg DAILY [facility] Administration Aspirin 81 mg 04/04/16 10:00 04/05/16 08:59 Ecotrin - PO 81 mg DAILY [facility] Administration Calcium Acetate 1,334 mg 04/04/16 08:00 04/05/16 17:00 Phoslo - PO Not Given TIDCM [facility] Docusate Sodium 100 mg 04/03/16 22:00 04/05/16 08:59 Colace - PO 100 mg BID [facility] Administration Duloxetine HCl 40 mg 04/04/16 10:00 04/05/16 08:59 Cymbalta - PO 40 mg DAILY [facility] Administration Epoetin Keith 20,000 unit 04/05/16 10:00 04/05/16 09:32 Procrit - SQ 20,000 unit MoWeFr@1000 [facility] Administration Furosemide 40 mg 04/06/16 10:00 Lasix Injection - IVPUSH DAILY [facility] Heparin Sodium (Porcine) 5,000 unit 04/03/16 22:00 04/05/16 14:37 Heparin - SQ 5,000 unit TID [facility] Administration Aztreonam 0.5 gm/ Dextrose 50 mls @ 100 mls/hr 04/04/16 02:00 04/05/16 17:00 IVPB 100 mls/hr Q8H-IV [facility] Administration Pantoprazole Sodium 100 mls @ 200 mls/hr 04/04/16 10:00 04/05/16 09:00 Protonix 40mg Ivpb (Pre-Docked) IVPB 200 mls/hr DAILY [facility] Administration Vancomycin HCl 250 mls @ 166.667 mls/hr 04/03/16 20:06 Vancomycin (Pre-Docked) IVPB 04/03/16 21:35 ONCE ONE Polyethylene Glycol 17 gm 04/04/16 10:00 04/05/16 08:59 Miralax (For Daily Use) - PO 17 grams DAILY [facility] Administration Prednisone 40 mg 04/04/16 10:00 04/05/16 08:59 Deltasone - PO 40 mg DAILY [facility] Administration Sodium Chloride 2 spray 04/03/16 20:06 [place] Nasal [place] - NS Q12H PRN NASAL CONGESTION Zinc Oxide/Panthenol/Vitamin E 1 applic 04/03/16 20:06 Balmex Cream - TP ASDIR PRN HYGEINE CBC, BMP 04/05/16 06:30 04/05/16 06:30 Microbiology 03/31/16 05:27 Blood - Peripheral Venous Blood Culture - Final S Aureus 03/31/16 05:27 Blood - Peripheral Venous Blood Culture - Final S Aureus 04/02/16 05:35 Blood - Peripheral Venous Blood Culture - Preliminary NO GROWTH OBTAINED AFTER 72 HOURS, INCUBATION TO CONTINUE FOR 2 DAYS. 04/02/16 05:35 Blood - Peripheral Venous Blood Culture - Preliminary NO GROWTH OBTAINED AFTER 72 HOURS, INCUBATION TO CONTINUE FOR 2 DAYS. Laboratory Tests 04/05/16 04/05/16 06:30 06:30 Phosphorus 3.4 Magnesium 2.6 H Random Vancomycin 20.773 CXR 04/04/16: A single view the chest again reveals a widened mediastinum with congestive changes, pleural fluid and possible basilar infiltrates and/or atelectasis. The patient is rotated to the left. CXR 04/03/16 Since 04/02/2016 at 0731 hours again noted is the large heart, unfolded aorta, congestive changes, widened mediastinum and pleural fluid. Since the prior study there is no significant change. ASSESSMENT/PLAN: 75 year old male with pmh of COPD, PVD, Chronic lower ext lymphadema, CAD with stent, CHF, CKD with baseline creatinine of 1.9, nephrolithiasis presented to the ED with complaint of shortness of breath and cellulitis, patient was fount to have acute hypercapneic respiratory failure and acute renal failure. on 03/28 pt started developing fever, chills and rigors, tachycardia, was treated with vancomycin, clindamycin and atreonam. On 03/29 further developed, pt was weak, sleepy, with fever, tachycardia, tachypnea and hypotension. Severe Sepsis from b/l lower ext cellulitis or dialysis access r/o endocarditis blood culture, MRSA from permacath, peripheral draw from 03/28 to 03/31/16 Pt is being treated with Vancomycin and aztreonam New blood culture on 04/02/16 negative for 72 hours, continue too follow urine culture, negative Dr Armijo consulted Vanco level 20 repeat in am NO vancomycin for today US doppler lower ext showed no DVT Echocardiogram no Endocarditis lower ext erythema almost resolved. Acute hypercapneic and hypoxic respiratory failure with respitatory acidosis rt to COPD exacerbation and diastolic heart failure and pleural effusion and severe Sepsis Pt was intubated 03/29/16 in ICU, Now is extubated on 03/30/16 on venti-mask 40 % titrate down FiO2 On prednisone 40mg po Continue bronchodilators Dialysis per renal Stable congestion on CXR negative fluid balance yesterday 1 Liter Start Lasix 40mg IV QD repeat CXR in am Permacth removed, was the source for the MRSA bacteremia s/p Thoracentesis 03/21/16 and 03/07/16 Acute on Chronic kidney Injury Continue to monitor BUN and Cr Monitor intake and output Continue Phoslo Continue Calcitriol Dialysis per renal when access placed Dialysis access after negative blood culture Normocytic anemia likely due to chronic disease and renal disease Continue to monitor CBC daily Current Hgb 8.0, PRN transfusion if Hbg less than 7 of if rapid drop and massive bleeding fecal occult blood positive, pt to follow up with GI once stable Thrombocytopenia (resolved) Hypertension Currently controlled on Norvasc Coronary artery disease s/p stenting on 03/2015 pt is on aspirin Po Constipation Pt is on Colace 100mg Po BID Pt is on miralax daily FEN Fluid: none Electrolytes: continue to monitor Nutrition: Diabetic low sodium diet Dvt prophylaxis: On heparin SQ Disposition: transfer to floor when bed available Visit type - Emergency Visit Emergency Visit: Yes ED Registration Date: 02/18/16 Care time: The patient presented to the Emergency Department on the above date and was hospitalized for further evaluation of their emergent condition. - New Patient This patient is new to me today: No - Critical Care Critical Care patient: No
--- NOTE | 2016-04-05 18:01 | PN ---
Teaching Attending Note Name of Resident: Zachery Blum ATTENDING PHYSICIAN STATEMENT I saw and evaluated the patient. I reviewed the resident's note and discussed the case with the resident. I agree with the resident's findings and plan as documented. SUBJECTIVE: no fever or chills, SOB is better OBJECTIVE: NAD Cv : RRR Lungs: decreased breath sounds at bases ,no wheezes or crackles ext: 2 + pitting edema , erythema improved ASSESSMENT AND PLAN: 75 year-old man with a PMHx of HTN, PVD, COPD, CKD (baseline Cr 1.8), nephrolithiasis, D CHF , CAD s/p stenting in 03/23 and chronic LE lymphedema. presented with SOB and was found to have acute hypercapnic resp failure with acute renal failure . 1- Acute hypercapnic resp failure due to COPD exa , diastolic heart failure and pleural effusions . s/p intubation and now extubated . s/p bilateral thoracocentesis off steroids cont IV lasix . place on 40 daily . off HD due to infected HD line 2-MRSA bacteremia 2/2 to infected HD cath , and LE cellulitis vanco level 20. hold today . check level in am need 4 weeks from first neg blood cx ( 04/02 ) cont aztreonam for now 3- KARLOS on CKD: improved . off HD due to above on cacitriol and phoslo 4- Normocytic anemia. s/p transfusion. cont to monitor. Transfuse PRN 5- Thrombocytopenia: recovered 6- HTN: cont norvasc 7- CAD : Stenting 03/23 cont asa . DVT px needs rehab , but refused again today. this was d/w
--- NOTE | 2016-04-05 19:04 | PN ---
Progress Note, Physician History of Present Illness: stable no complaints breathing much better - Current Medication List Current Medications: Active Medications Acetaminophen (Tylenol -) 650 mg PO Q6H PRN PRN Reason: FEVER OR PAIN Albuterol Sulfate (Ventolin 0.042trength) -) 1 amp NEB Q6H PRN PRN Reason: SHORT OF BREATH/WHEEZING Last Admin: 04/05/16 15:23 Dose: 1 amp Albuterol/Ipratropium (Duoneb -) 1 amp NEB QIDR [facility] Last Admin: 04/05/16 18:00 Dose: 1 amp Amlodipine Besylate (Norvasc -) 10 mg PO DAILY [facility] Last Admin: 04/05/16 08:59 Dose: 10 mg Aspirin (Ecotrin -) 81 mg PO DAILY [facility] Last Admin: 04/05/16 08:59 Dose: 81 mg Calcium Acetate (Phoslo -) 1,334 mg PO TIDCM [facility] Last Admin: 04/05/16 17:00 Dose: Not Given Docusate Sodium (Colace -) 100 mg PO BID [facility] Last Admin: 04/05/16 08:59 Dose: 100 mg Duloxetine HCl (Cymbalta -) 40 mg PO DAILY [facility] Last Admin: 04/05/16 08:59 Dose: 40 mg Epoetin Keith (Procrit -) 20,000 unit SQ MoWeFr@1000 [facility] Last Admin: 04/05/16 09:32 Dose: 20,000 unit Furosemide (Lasix Injection -) 40 mg IVPUSH DAILY [facility] Heparin Sodium (Porcine) (Heparin -) 5,000 unit SQ TID [facility] Last Admin: 04/05/16 14:37 Dose: 5,000 unit Aztreonam 0.5 gm/ Dextrose 50 mls @ 100 mls/hr IVPB Q8H-IV [facility] Last Admin: 04/05/16 17:00 Dose: 100 mls/hr Pantoprazole Sodium (Protonix 40mg Ivpb (Pre-Docked)) 100 mls @ 200 mls/hr IVPB DAILY [facility] Last Admin: 04/05/16 09:00 Dose: 200 mls/hr Vancomycin HCl (Vancomycin (Pre-Docked)) 250 mls @ 166.667 mls/hr IVPB ONCE ONE Stop: 04/03/16 21:35 Polyethylene Glycol (Miralax (For Daily Use) -) 17 gm PO DAILY [facility] Last Admin: 04/05/16 08:59 Dose: 17 grams Prednisone (Deltasone -) 40 mg PO DAILY [facility] Last Admin: 04/05/16 08:59 Dose: 40 mg Sodium Chloride ([place] Nasal [place] -) 2 spray NS Q12H PRN PRN Reason: NASAL CONGESTION Zinc Oxide/Panthenol/Vitamin E (Balmex Cream -) 1 applic TP ASDIR PRN PRN Reason: HYGEINE - Objective Vital Signs: Vital Signs Temperature 97.9 F 04/05/16 14:17 Pulse Rate 95 H 04/05/16 14:17 Respiratory Rate 24 04/05/16 14:17 Blood Pressure 150/68 04/05/16 14:17 O2 Sat by Pulse Oximetry (%) 92 L 04/05/16 10:00 Constitutional: Yes: No Distress, Calm Cardiovascular: Yes: Regular Rate and Rhythm Respiratory: Yes: Regular, Poor Air Entry, Other (distant sounds) Gastrointestinal: Yes: Normal Bowel Sounds, Soft Musculoskeletal: Yes: WNL Edema: LLE: 2+, RLE: 2+ Neurological: Yes: Alert, Oriented Psychiatric: Yes: Alert, Oriented Labs: CBC, BMP 04/05/16 06:30 04/05/16 06:30 INR, PTT INR 1.27 (0.82-1.09) H 03/30/16 05:20 Fibrinogen 547.0 mg/dL (238-498) H 03/17/16 06:30 Assessment/Plan 75 year-old man with a PMH of HTN, PVD, COPD, CKD (baseline Cr 1.9), nephrolithiasis, and chronic LE lymphedema. Admitted in acute renal failure. Acute on chronic renal failure Hyperkalemia Sepsis s Hypertension Peripheral vascular disease Hypercarbic respiratory failure COPD bilateral cellulitis of the legs rsv lung infection pleural effusion anemia fevers gm positive bacteremia mrsa bacteremia plan cellulitis improving blood cx negative will continue vanco dose adjusted level noted continue azactam cc time 40 min
--- NOTE | 2016-04-05 19:06 | PN ---
Progress Note, Physician History of Present Illness: doing much better legs show good improvement on mask breathing well - Current Medication List Current Medications: Active Medications Acetaminophen (Tylenol -) 650 mg PO Q6H PRN PRN Reason: FEVER OR PAIN Albuterol Sulfate (Ventolin 0.042trength) -) 1 amp NEB Q6H PRN PRN Reason: SHORT OF BREATH/WHEEZING Last Admin: 04/05/16 15:23 Dose: 1 amp Albuterol/Ipratropium (Duoneb -) 1 amp NEB QIDR [facility] Last Admin: 04/05/16 18:00 Dose: 1 amp Amlodipine Besylate (Norvasc -) 10 mg PO DAILY [facility] Last Admin: 04/05/16 08:59 Dose: 10 mg Aspirin (Ecotrin -) 81 mg PO DAILY [facility] Last Admin: 04/05/16 08:59 Dose: 81 mg Calcium Acetate (Phoslo -) 1,334 mg PO TIDCM [facility] Last Admin: 04/05/16 17:00 Dose: Not Given Docusate Sodium (Colace -) 100 mg PO BID [facility] Last Admin: 04/05/16 08:59 Dose: 100 mg Duloxetine HCl (Cymbalta -) 40 mg PO DAILY [facility] Last Admin: 04/05/16 08:59 Dose: 40 mg Epoetin Keith (Procrit -) 20,000 unit SQ MoWeFr@1000 [facility] Last Admin: 04/05/16 09:32 Dose: 20,000 unit Furosemide (Lasix Injection -) 40 mg IVPUSH DAILY [facility] Heparin Sodium (Porcine) (Heparin -) 5,000 unit SQ TID [facility] Last Admin: 04/05/16 14:37 Dose: 5,000 unit Aztreonam 0.5 gm/ Dextrose 50 mls @ 100 mls/hr IVPB Q8H-IV [facility] Last Admin: 04/05/16 17:00 Dose: 100 mls/hr Pantoprazole Sodium (Protonix 40mg Ivpb (Pre-Docked)) 100 mls @ 200 mls/hr IVPB DAILY [facility] Last Admin: 04/05/16 09:00 Dose: 200 mls/hr Vancomycin HCl (Vancomycin (Pre-Docked)) 250 mls @ 166.667 mls/hr IVPB ONCE ONE Stop: 04/03/16 21:35 Polyethylene Glycol (Miralax (For Daily Use) -) 17 gm PO DAILY [facility] Last Admin: 04/05/16 08:59 Dose: 17 grams Prednisone (Deltasone -) 40 mg PO DAILY [facility] Last Admin: 04/05/16 08:59 Dose: 40 mg Sodium Chloride ([place] Nasal [place] -) 2 spray NS Q12H PRN PRN Reason: NASAL CONGESTION Zinc Oxide/Panthenol/Vitamin E (Balmex Cream -) 1 applic TP ASDIR PRN PRN Reason: HYGEINE - Objective Vital Signs: Vital Signs Temperature 97.9 F 04/05/16 14:17 Pulse Rate 95 H 04/05/16 14:17 Respiratory Rate 24 04/05/16 14:17 Blood Pressure 150/68 04/05/16 14:17 O2 Sat by Pulse Oximetry (%) 92 L 04/05/16 10:00 Constitutional: Yes: No Distress, Calm Neck: Yes: Supple Cardiovascular: Yes: Regular Rate and Rhythm Respiratory: Yes: Regular, Poor Air Entry Musculoskeletal: Yes: Other Extremities: Yes: Other Edema: LLE: 2+, RLE: 2+ Neurological: Yes: Alert, Oriented Psychiatric: Yes: Alert Labs: CBC, BMP 04/05/16 06:30 04/05/16 06:30 INR, PTT INR 1.27 (0.82-1.09) H 03/30/16 05:20 Fibrinogen 547.0 mg/dL (238-498) H 03/17/16 06:30 Assessment/Plan 75 year-old man with a PMH of HTN, PVD, COPD, CKD (baseline Cr 1.9), nephrolithiasis, and chronic LE lymphedema. Admitted in acute renal failure. Acute on chronic renal failure Hyperkalemia Sepsis s Hypertension Peripheral vascular disease Hypercarbic respiratory failure COPD bilateral cellulitis of the legs rsv lung infection pleural effusion anemia fevers gm positive bacteremia mrsa bacteremia plan cellulitis improving blood cx negative will continue vanco will stop azactam tomorrow will hold vanco today bld cx negative so far will order vanco level cc time 40 min
[2016-04-06] MEDS: ALBUTEROL SO4 2.5/IPRATROPIUM 0.5 INH SOL 3 ML VIAL.NEB. NEB SCH ×4 (00:13→23:40)
[2016-04-06] MEDS: AZTREONAM 0.5 GM in DEXTROSE 5%-WATER - 50 ML IVPB SCH ×2 (01:43→09:13)
[2016-04-06] MEDS: HEPARIN NA (PORCINE) 5,000 UNITS/ML 1ML VIAL SQ SCH ×3 (05:25→21:26)
[2016-04-06 07:49] LABS: MCH 26.6 pg (25.7-33.7); MCHC 30.3 g/dl (32.0-35.9); MEAN CELL VOLUME 87.9 fl (80-96); PLATELET COUNT 407 K/MM3 (134-434); RDW 22.8 % (11.9-15.9); WHITE BLOOD COUNT 12.3 K/mm3 (4.0-10.0)
[2016-04-06 08:26] LABS: CALCIUM 8.2 mg/dL (8.5-10.1); CREATININE 1.9 mg/dL (0.7-1.3); MAGNESIUM 2.2 mg/dL (1.8-2.4); PHOSPHOROUS 3.5 mg/dL (2.5-4.9)
[2016-04-06] MEDS ORDERED: PT OWN MED DRAWER 7, Y5N ONE (08:54)
[2016-04-06 08:55] LABS: METAMYELOCYTE 9 % (0-2)
[2016-04-06] MEDS: CALCIUM ACETATE 667 MG CAPSULE (FP) PO SCH ×3 (09:12→17:14)
[2016-04-06] MEDS: DULoxetine HCL 20 MG CAPSULE.DR (FP) PO SCH (09:12)
[2016-04-06] MEDS: FUROSEMIDE 40 MG/4 ML INJECTABLE VIAL IVPUSH SCH (09:12)
[2016-04-06] MEDS: predniSONE 20 MG TABLET (UD) PO SCH (09:12)
[2016-04-06] MEDS: DOCUSATE SODIUM 100 MG CAPSULE (FP) PO SCH ×2 (09:12→21:26)
[2016-04-06] MEDS: amLODIPine BESYLATE 10 MG TABLET (FP) PO SCH (09:13)
[2016-04-06] MEDS: ASPIRIN COATED 81 MG TABLET.EC PO SCH (09:13)
[2016-04-06] MEDS: POLYETHYLENE GLYCOL 3350 119 GM BTL PO SCH (09:13)
[2016-04-06] MEDS: PANTOPRAZOLE SODIUM 100 ML IVPB SCH (09:14)
--- NOTE | 2016-04-06 10:52 | PN ---
Progress Note, Physician History of Present Illness: seen and examined today in nad. feeling better. mild sob currently. no overnight events. no new complaints. - Current Medication List Current Medications: Active Medications Acetaminophen (Tylenol -) 650 mg PO Q6H PRN PRN Reason: FEVER OR PAIN Albuterol Sulfate (Ventolin 0.042trength) -) 1 amp NEB Q6H PRN PRN Reason: SHORT OF BREATH/WHEEZING Last Admin: 04/05/16 15:23 Dose: 1 amp Albuterol/Ipratropium (Duoneb -) 1 amp NEB QIDR [facility] Last Admin: 04/06/16 05:05 Dose: 1 amp Amlodipine Besylate (Norvasc -) 10 mg PO DAILY [facility] Last Admin: 04/06/16 09:13 Dose: 10 mg Aspirin (Ecotrin -) 81 mg PO DAILY [facility] Last Admin: 04/06/16 09:13 Dose: 81 mg Calcium Acetate (Phoslo -) 1,334 mg PO TIDCM [facility] Last Admin: 04/06/16 09:12 Dose: 1,334 mg Docusate Sodium (Colace -) 100 mg PO BID [facility] Last Admin: 04/06/16 09:12 Dose: 100 mg Duloxetine HCl (Cymbalta -) 40 mg PO DAILY [facility] Last Admin: 04/06/16 09:12 Dose: 40 mg Epoetin Keith (Procrit -) 20,000 unit SQ MoWeFr@1000 [facility] Last Admin: 04/05/16 09:32 Dose: 20,000 unit Furosemide (Lasix Injection -) 40 mg IVPUSH DAILY [facility] Last Admin: 04/06/16 09:12 Dose: 40 mg Heparin Sodium (Porcine) (Heparin -) 5,000 unit SQ TID [facility] Last Admin: 04/06/16 05:25 Dose: 5,000 unit Aztreonam 0.5 gm/ Dextrose 50 mls @ 100 mls/hr IVPB Q8H-IV [facility] Last Admin: 04/06/16 09:13 Dose: 100 mls/hr Pantoprazole Sodium (Protonix 40mg Ivpb (Pre-Docked)) 100 mls @ 200 mls/hr IVPB DAILY [facility] Last Admin: 04/06/16 09:14 Dose: 200 mls/hr Vancomycin HCl (Vancomycin (Pre-Docked)) 250 mls @ 166.667 mls/hr IVPB ONCE ONE Stop: 04/03/16 21:35 Polyethylene Glycol (Miralax (For Daily Use) -) 17 gm PO DAILY [facility] Last Admin: 04/06/16 09:13 Dose: 17 grams Prednisone (Deltasone -) 40 mg PO DAILY [facility] Last Admin: 04/06/16 09:12 Dose: 40 mg Sodium Chloride ([place] Nas[place] -) 2 spray NS Q12H PRN PRN Reason: NASAL CONGESTION Vancomycin HCl (Vancomycin (Pre-Docked)) 1,000 mg IVPB ONCE ONE Stop: 04/06/16 10:28 Zinc Oxide/Panthenol/Vitamin E (Balmex Cream -) 1 applic TP [facility]IR PRN PRN Reason: HYGEINE - Objective Vital Signs: Vital Signs Temperature 98.2 F 04/06/16 10:00 Pulse Rate 98 H 04/06/16 10:00 Respiratory Rate 20 04/06/16 10:00 Blood Pressure 148/72 04/06/16 10:00 O2 Sat by Pulse Oximetry (%) 98 04/06/16 10:00 Constitutional: Yes: No Distress, Calm, Obese Eyes: Yes: Conjunctiva Clear, EOM Intact, PERRL HENT: Yes: Atraumatic, Normocephalic Neck: Yes: Supple, Trachea Midline Cardiovascular: Yes: Regular Rate and Rhythm, S1, S2. No: Bradycardia, Tachycardia, Pulse Irregular, Bruit, JVD, Gallop, Murmur, Rub, S3, S4, Varicosities Respiratory: Yes: Regular, Diminished, On Nasal O2, Rhonchi, SOB, Wheezes Gastrointestinal: Yes: Normal Bowel Sounds, Soft. No: Distention, Tenderness Musculoskeletal: Yes: Muscle Weakness Edema: Yes Edema: LLE: 2+, RLE: 2+ Peripheral Pulses WNL: Yes Peripheral Pulses: Left Doralis Pedis: 2+, Right Dorsalis Pedis: 2+ Integumentary: Yes: Venous Stasis Changes Neurological: Yes: Alert, Oriented Psychiatric: Yes: Alert, Oriented Labs: CBC, BMP 04/06/16 05:35 04/06/16 05:35 INR, PTT INR 1.27 (0.82-1.09) H 03/30/16 05:20 Fibrinogen 547.0 mg/dL (238-498) H 03/17/16 06:30 - ....Imaging Chest X-ray: Report Reviewed, Image Reviewed EKG: Report Reviewed, Image Reviewed Other: Report Reviewed, Image Reviewed (tele-nsr, apcs, pvcs, couplets, triplets ) Assessment/Plan IMP: Acute on chronic hypercarbic respiratory failure Chronic COPD Sepsis, gram + Bacteremia, infected HD catheter- removed ESRD CAD REC: Resp. failure: required intubation during admission -now extubated, s/p thoracentesis for pleural effusions -diuresing well now and has not required further HD -bun/creat trending down -cont Lasix 40mg IV daily -keep I/Os negative -bipap as needed -steroids as per pulm reccs Sepsis: -gram + bacteremia; infected HD catheter removed.Surveillance cultures pending with last set remaining NGTD -Abx as per ID -TTE showed no evidence of endocarditis CAD: s/p PCI with stents this year -thrombocytopenia resolved -cont ASA 81mg daily
[2016-04-06] MEDS ORDERED: VANCOMYCIN 1 GRAM (PRE-DOCKED) 1,000 MG/250 ML BAG IVPB ONE (12:30)
--- NOTE | 2016-04-06 14:11 | PN ---
Progress Note (short form) - Note Progress Note: Renal Follow up for KARLOS Pt seen and examined at the bedside no complaints Vital Signs Temperature 98.2 F 04/06/16 10:00 Pulse Rate 98 H 04/06/16 10:00 Respiratory Rate 20 04/06/16 10:00 Blood Pressure 148/72 04/06/16 10:00 O2 Sat by Pulse Oximetry (%) 98 04/06/16 10:00 Intake & Output 04/03/16 04/04/16 04/05/16 04/06/16 23:59 23:59 23:59 23:59 Intake Total 264 1882 320 150 Output Total 3300 3000 2800 900 Balance -3036 -1118 -2480 -750 Weight 256 lb 6.4 oz 256 lb 13.416 oz Gen: NAD CVS: RRR No M/R Lungs: dec BS throughout the lung rey Abd: Soft NT + Mild distension Ext: 1+ edema CBC, BMP 04/06/16 05:35 04/06/16 05:35 Current Medications Acetaminophen (Tylenol -) 650 mg PO Q6H PRN PRN Reason: FEVER OR PAIN Albuterol Sulfate (Ventolin 0.042trength) -) 1 amp NEB Q6H PRN PRN Reason: SHORT OF BREATH/WHEEZING Last Admin: 04/05/16 15:23 Dose: 1 amp Albuterol/Ipratropium (Duoneb -) 1 amp NEB QIDR [facility] Last Admin: 04/06/16 12:01 Dose: 1 amp Amlodipine Besylate (Norvasc -) 10 mg PO DAILY [facility] Last Admin: 04/06/16 09:13 Dose: 10 mg Aspirin (Ecotrin -) 81 mg PO DAILY [facility] Last Admin: 04/06/16 09:13 Dose: 81 mg Calcium Acetate (Phoslo -) 1,334 mg PO TIDCM [facility] Last Admin: 04/06/16 12:22 Dose: 1,334 mg Docusate Sodium (Colace -) 100 mg PO BID [facility] Last Admin: 04/06/16 09:12 Dose: 100 mg Duloxetine HCl (Cymbalta -) 40 mg PO DAILY [facility] Last Admin: 04/06/16 09:12 Dose: 40 mg Epoetin Keith (Procrit -) 20,000 unit SQ MoWeFr@1000 [facility] Last Admin: 04/05/16 09:32 Dose: 20,000 unit Furosemide (Lasix Injection -) 40 mg IVPUSH DAILY [facility] Last Admin: 04/06/16 09:12 Dose: 40 mg Heparin Sodium (Porcine) (Heparin -) 5,000 unit SQ TID [facility] Last Admin: 04/06/16 05:25 Dose: 5,000 unit Aztreonam 0.5 gm/ Dextrose 50 mls @ 100 mls/hr IVPB Q8H-IV [facility] Last Admin: 04/06/16 09:13 Dose: 100 mls/hr Pantoprazole Sodium (Protonix 40mg Ivpb (Pre-Docked)) 100 mls @ 200 mls/hr IVPB DAILY [facility] Last Admin: 04/06/16 09:14 Dose: 200 mls/hr Vancomycin HCl (Vancomycin (Pre-Docked)) 250 mls @ 166.667 mls/hr IVPB ONCE ONE Stop: 04/03/16 21:35 Polyethylene Glycol (Miralax (For Daily Use) -) 17 gm PO DAILY [facility] Last Admin: 04/06/16 09:13 Dose: 17 grams Prednisone (Deltasone -) 40 mg PO DAILY [facility] Last Admin: 04/06/16 09:12 Dose: 40 mg Sodium Chloride ([place] Nasal [place] -) 2 spray NS Q12H PRN PRN Reason: NASAL CONGESTION Zinc Oxide/Panthenol/Vitamin E (Balmex Cream -) 1 applic TP ASDIR PRN PRN Reason: HYGEINE A/P 75 year old Gentleman with PMhx of CKD Stage 3 (baseline Cr 1.9), Hx of Nephrolithiasis, Hypertension, COPD, CHF, PVD, Chronic LE lymph edema who was sent into the ED from wound care for increased lethargy and decreased urination for several days with KARLOS with BUN/Cr of 115/7.2 and K of 6.5 #Acute on Chronic Renal failure with volume overload Renal function improving pt is non-oliguric good response to diuretics continue IV lasix daily #MRSA Bactermia from dialysis catheter infection Repeat blood cultures from 04/02 w/o growth Continue Vanco dosed by levels ID following YIMI 03/30 w/o Veg #Anemia Continue Procrit TIW Transfuse as per ICU protocol Melvin Johnson DO
[2016-04-06] MEDS ORDERED: VANCOMYCIN 250 MG in DEXTROSE 5%-WATER - 250 ML IVPB ONE (14:44)
--- NOTE | 2016-04-06 14:45 | PN ---
Progress Note, Physician History of Present Illness: doing much better legs doing good patient breathing much better - Current Medication List Current Medications: Active Medications Acetaminophen (Tylenol -) 650 mg PO Q6H PRN PRN Reason: FEVER OR PAIN Albuterol Sulfate (Ventolin 0.042trength) -) 1 amp NEB Q6H PRN PRN Reason: SHORT OF BREATH/WHEEZING Last Admin: 04/05/16 15:23 Dose: 1 amp Albuterol/Ipratropium (Duoneb -) 1 amp NEB QIDR [facility] Last Admin: 04/06/16 12:01 Dose: 1 amp Amlodipine Besylate (Norvasc -) 10 mg PO DAILY [facility] Last Admin: 04/06/16 09:13 Dose: 10 mg Aspirin (Ecotrin -) 81 mg PO DAILY [facility] Last Admin: 04/06/16 09:13 Dose: 81 mg Calcium Acetate (Phoslo -) 1,334 mg PO TIDCM [facility] Last Admin: 04/06/16 12:22 Dose: 1,334 mg Docusate Sodium (Colace -) 100 mg PO BID [facility] Last Admin: 04/06/16 09:12 Dose: 100 mg Duloxetine HCl (Cymbalta -) 40 mg PO DAILY [facility] Last Admin: 04/06/16 09:12 Dose: 40 mg Epoetin Keith (Procrit -) 20,000 unit SQ MoWeFr@1000 [facility] Last Admin: 04/05/16 09:32 Dose: 20,000 unit Furosemide (Lasix Injection -) 40 mg IVPUSH DAILY [facility] Last Admin: 04/06/16 09:12 Dose: 40 mg Heparin Sodium (Porcine) (Heparin -) 5,000 unit SQ TID [facility] Last Admin: 04/06/16 14:25 Dose: 5,000 unit Pantoprazole Sodium (Protonix 40mg Ivpb (Pre-Docked)) 100 mls @ 200 mls/hr IVPB DAILY [facility] Last Admin: 04/06/16 09:14 Dose: 200 mls/hr Vancomycin HCl (Vancomycin (Pre-Docked)) 250 mls @ 166.667 mls/hr IVPB ONCE ONE Stop: 04/03/16 21:35 Polyethylene Glycol (Miralax (For Daily Use) -) 17 gm PO DAILY [facility] Last Admin: 04/06/16 09:13 Dose: 17 grams Prednisone (Deltasone -) 40 mg PO DAILY [facility] Last Admin: 04/06/16 09:12 Dose: 40 mg Sodium Chloride ([place] Nasal [place] -) 2 spray NS Q12H PRN PRN Reason: NASAL CONGESTION Zinc Oxide/Panthenol/Vitamin E (Balmex Cream -) 1 applic TP ASDIR PRN PRN Reason: HYGEINE - Objective Vital Signs: Vital Signs Temperature 98.2 F 04/06/16 10:00 Pulse Rate 98 H 04/06/16 10:00 Respiratory Rate 20 04/06/16 10:00 Blood Pressure 148/72 04/06/16 10:00 O2 Sat by Pulse Oximetry (%) 98 04/06/16 10:00 Constitutional: Yes: No Distress, Calm Cardiovascular: Yes: Regular Rate and Rhythm Respiratory: Yes: On Venti-Mask, Poor Air Entry, Rhonchi Gastrointestinal: Yes: Normal Bowel Sounds, Soft Musculoskeletal: Yes: Other Extremities: Yes: Other Neurological: Yes: Alert, Oriented Psychiatric: Yes: Alert Labs: CBC, BMP 04/06/16 05:35 04/06/16 05:35 INR, PTT INR 1.27 (0.82-1.09) H 03/30/16 05:20 Fibrinogen 547.0 mg/dL (238-498) H 03/17/16 06:30 Assessment/Plan 75 year-old man with a PMH of HTN, PVD, COPD, CKD (baseline Cr 1.9), nephrolithiasis, and chronic LE lymphedema. Admitted in acute renal failure. Acute on chronic renal failure Hyperkalemia Sepsis s Hypertension Peripheral vascular disease Hypercarbic respiratory failure COPD bilateral cellulitis of the legs rsv lung infection pleural effusion anemia fevers gm positive bacteremia mrsa bacteremia plan will stop azactam continue vanco monitor wbc cx negative so far await wound cx reports
--- NOTE | 2016-04-06 15:28 | PN ---
Teaching Attending Note Name of Resident: Zachery Blum ATTENDING PHYSICIAN STATEMENT I saw and evaluated the patient. I reviewed the resident's note and discussed the case with the resident. I agree with the resident's findings and plan as documented. SUBJECTIVE: no fever or chills, feels anxious . OBJECTIVE: NAD Cv : RRR Lungs: decreased breath sounds at bases ,no wheezes or crackles ext: 2 + pitting edema , erythema improved ASSESSMENT AND PLAN: 75 year-old man with a PMHx of HTN, PVD, COPD, CKD (baseline Cr 1.8), nephrolithiasis, D CHF , CAD s/p stenting in 03/23 and chronic LE lymphedema. presented with SOB and was found to have acute hypercapnic resp failure with acute renal failure . 1- Acute hypercapnic resp failure due to COPD exa , diastolic heart failure and pleural effusions . s/p intubation and now extubated . s/p bilateral thoracocentesis will cont steroids taper cont IV lasix . I&O Net Neg 1100 cc in past 24 hr Stilll requires VEnti mask ( desated to 87 % on NC ) BIPAP at night ( not using ) 2-MRSA bacteremia 2/2 to infected HD cath . LE cellulitis vanco dose today need 4 weeks from first neg blood cx ( 04/02 ) DC aztreonam 3- KARLOS on CKD: improved . on cacitriol and phoslo 4- Normocytic anemia. s/p transfusion. cont to monitor. Transfuse PRN procrit per renal 5- Thrombocytopenia: recovered 6- HTN: cont norvasc 7- CAD : Stenting 03/23 cont asa . Current Medications Generic Name Dose Route Start Last Admin Trade Name Freq PRN Reason Stop Dose Admin Acetaminophen 650 mg 04/03/16 20:06 Tylenol - PO Q6H PRN FEVER OR PAIN Albuterol Sulfate 1 amp 04/03/16 20:06 04/05/16 15:23 Ventolin 0.042trength) - NEB 1 amp Q6H PRN Administration SHORT OF BREATH/WHEEZING Albuterol/Ipratropium 1 amp 04/04/16 00:00 04/06/16 12:01 Duoneb - NEB 1 amp QIDR [facility] Administration Amlodipine Besylate 10 mg 04/04/16 10:00 04/06/16 09:13 Norvasc - PO 10 mg DAILY [facility] Administration Aspirin 81 mg 04/04/16 10:00 04/06/16 09:13 Ecotrin - PO 81 mg DAILY [facility] Administration Calcium Acetate 1,334 mg 04/04/16 08:00 04/06/16 12:22 Phoslo - PO 1,334 mg TIDCM [facility] Administration Docusate Sodium 100 mg 04/03/16 22:00 04/06/16 09:12 Colace - PO 100 mg BID [facility] Administration Duloxetine HCl 40 mg 04/04/16 10:00 04/06/16 09:12 Cymbalta - PO 40 mg DAILY [facility] Administration Epoetin Keith 20,000 unit 04/05/16 10:00 04/05/16 09:32 Procrit - SQ 20,000 unit MoWeFr@1000 [facility] Administration Furosemide 40 mg 04/06/16 10:00 04/06/16 09:12 Lasix Injection - IVPUSH 40 mg DAILY [facility] Administration Heparin Sodium (Porcine) 5,000 unit 04/03/16 22:00 04/06/16 14:25 Heparin - SQ 5,000 unit TID [facility] Administration Pantoprazole Sodium 100 mls @ 200 mls/hr 04/04/16 10:00 04/06/16 09:14 Protonix 40mg Ivpb (Pre-Docked) IVPB 200 mls/hr DAILY [facility] Administration Vancomycin HCl 250 mls @ 166.667 mls/hr 04/03/16 20:06 Vancomycin (Pre-Docked) IVPB 04/03/16 21:35 ONCE ONE Polyethylene Glycol 17 gm 04/04/16 10:00 04/06/16 09:13 Miralax (For Daily Use) - PO 17 grams DAILY [facility] Administration Prednisone 40 mg 04/04/16 10:00 04/06/16 09:12 Deltasone - PO 40 mg DAILY [facility] Administration Sodium Chloride 2 spray 04/03/16 20:06 [place] Nasal [place] - NS Q12H PRN NASAL CONGESTION Zinc Oxide/Panthenol/Vitamin E 1 applic 04/03/16 20:06 Balmex Cream - TP ASDIR PRN HYGEINE
--- NOTE | 2016-04-06 16:41 | PN ---
Progress Note, Physician History of Present Illness: NAD. Oriented and alert. - Current Medication List Current Medications: Active Medications Acetaminophen (Tylenol -) 650 mg PO Q6H PRN PRN Reason: FEVER OR PAIN Albuterol Sulfate (Ventolin 0.042trength) -) 1 amp NEB Q6H PRN PRN Reason: SHORT OF BREATH/WHEEZING Last Admin: 04/05/16 15:23 Dose: 1 amp Albuterol/Ipratropium (Duoneb -) 1 amp NEB QIDR [facility] Last Admin: 04/06/16 12:01 Dose: 1 amp Amlodipine Besylate (Norvasc -) 10 mg PO DAILY [facility] Last Admin: 04/06/16 09:13 Dose: 10 mg Aspirin (Ecotrin -) 81 mg PO DAILY [facility] Last Admin: 04/06/16 09:13 Dose: 81 mg Calcium Acetate (Phoslo -) 1,334 mg PO TIDCM [facility] Last Admin: 04/06/16 12:22 Dose: 1,334 mg Docusate Sodium (Colace -) 100 mg PO BID [facility] Last Admin: 04/06/16 09:12 Dose: 100 mg Duloxetine HCl (Cymbalta -) 40 mg PO DAILY [facility] Last Admin: 04/06/16 09:12 Dose: 40 mg Epoetin Keith (Procrit -) 20,000 unit SQ MoWeFr@1000 [facility] Last Admin: 04/05/16 09:32 Dose: 20,000 unit Furosemide (Lasix Injection -) 40 mg IVPUSH DAILY [facility] Last Admin: 04/06/16 09:12 Dose: 40 mg Heparin Sodium (Porcine) (Heparin -) 5,000 unit SQ TID [facility] Last Admin: 04/06/16 14:25 Dose: 5,000 unit Pantoprazole Sodium (Protonix 40mg Ivpb (Pre-Docked)) 100 mls @ 200 mls/hr IVPB DAILY [facility] Last Admin: 04/06/16 09:14 Dose: 200 mls/hr Vancomycin HCl (Vancomycin (Pre-Docked)) 250 mls @ 166.667 mls/hr IVPB ONCE ONE Stop: 04/03/16 21:35 Polyethylene Glycol (Miralax (For Daily Use) -) 17 gm PO DAILY [facility] Last Admin: 04/06/16 09:13 Dose: 17 grams Prednisone (Deltasone -) 40 mg PO DAILY [facility] Last Admin: 04/06/16 09:12 Dose: 40 mg Sodium Chloride ([place] Nas[place] -) 2 spray NS Q12H PRN PRN Reason: NASAL CONGESTION Zinc Oxide/Panthenol/Vitamin E (Balmex Cream -) 1 applic TP ASDIR PRN PRN Reason: HYGEINE - Objective Vital Signs: Vital Signs Temperature 97.7 F 04/06/16 14:02 Pulse Rate 96 H 04/06/16 14:02 Respiratory Rate 20 04/06/16 14:02 Blood Pressure 141/80 04/06/16 14:02 O2 Sat by Pulse Oximetry (%) 92 L 04/06/16 12:15 Constitutional: Yes: No Distress Eyes: No: Sclera Icterus HENT: Yes: Atraumatic, Normocephalic Neck: Yes: Supple, Trachea Midline Cardiovascular: No: JVD Respiratory: Yes: CTA Bilaterally Gastrointestinal: Yes: Soft. No: Tenderness Extremities: Yes: Other (chronic stasis changes) Edema: No Neurological: Yes: Alert, Oriented Labs: CBC, BMP 04/06/16 05:35 04/06/16 05:35 INR, PTT INR 1.27 (0.82-1.09) H 03/30/16 05:20 Fibrinogen 547.0 mg/dL (238-498) H 03/17/16 06:30 - ....Imaging Chest X-ray: Report Reviewed, Image Reviewed (No change: bilateral effusions) Problem List - Problems (1) COPD exacerbation Code(s): J44.1 - CHRONIC OBSTRUCTIVE PULMONARY DISEASE W (ACUTE) EXACERBATION (2) Acute and chronic respiratory failure ([id number]) Code(s): J96.20 - ACUTE AND CHR RESP FAILURE, UNSP W HYPOXIA OR HYPERCAPNIA Qualifiers: Qualified Code(s): J96.21 - Acute and chronic respiratory failure with hypoxia (3) Acute kidney failure Code(s): N17.9 - ACUTE KIDNEY FAILURE, UNSPECIFIED Qualifiers: Qualified Code(s): N17.9 - Acute kidney failure, unspecified (4) Chronic kidney disease (CKD) Code(s): N18.9 - CHRONIC KIDNEY DISEASE, UNSPECIFIED Qualifiers: Qualified Code(s): N18.9 - Chronic kidney disease, unspecified (5) Cellulitis Code(s): L03.90 - CELLULITIS, UNSPECIFIED (6) Hyperkalemia Code(s): E87.5 - HYPERKALEMIA (7) Arteriosclerotic heart disease (ASHD) Code(s): I25.10 - ATHSCL HEART DISEASE OF [place] CORONARY ARTERY W/O ANG PCTRS (8) Obesities, morbid Code(s): E66.01 - MORBID (SEVERE) OBESITY DUE TO EXCESS CALORIES Qualifiers: Qualified Code(s): E66.2 - Morbid (severe) obesity with alveolar hypoventilation Assessment/Plan Acute on Chronic Respiratory failure:respiratory status improved;patient remains trachypnic and needs O2 Sepis-MRSA: on antibiotics. Latest blood cultures: no growth COPD Exacerbation Acute on Chronic Respiratory Failure Morbid Obesity Acute and Chronic Renal Failure: improved. Renal function back down to pt's baseline. ASHD CHF-improved Plan: BiPAP PRN Antibiotic per I.D. Inhaled bronchodilators Prednisone taper-pt was on maintenance dose of 10 mg daily prior to hospitalization O2 to maintain SaO2>90 Bedside PT. restarted Discharge planning-pt will need physical therapy in SNF
--- NOTE | 2016-04-06 19:20 | PN ---
Physical Exam: SUBJECTIVE: Patient seen and examined Pt is awake, alert and oriented pot is till complaining of mild shortness of breath Pt prefer mask as opposed to nasal cannula OBJECTIVE: Vital Signs Period Temp Pulse Resp BP Sys/[place] Pulse Ox Last 24 Hr 97.7 F-98.8 F 85-100 18-20 134-153/68-80 92-98 ENERAL: The patient is awake, alert oriented, in no distress. HEAD: Normal with no signs of trauma. EYES: PERRL, extraocular movements intact, sclera anicteric, conjunctiva clear. No ptosis. ENT: Ears normal, nares patent, oropharynx clear without exudates, dry mucous membranes. NECK: Trachea midline, full range of motion, supple. LUNGS: scattered ronchi, b/l crackles in lung bases HEART: tachycardic, Regular rate and rhythm, S1, S2 without murmur, rub or gallop. ABDOMEN: Soft, nontender, nondistended, normoactive bowel sounds, no guarding, no rebound, no hepatosplenomegaly, no masses. EXTREMITIES: 2+ pulses, warm, well-perfused. b/l lower ext edema 1+ with wrinkle skin, lower ext 1+ pulses NEUROLOGICAL: gait not observed. Strength 5/5 in all ext PSYCH: anxious mood, normal affect. SKIN: Warm, dry, wrinkled skin in b/l lower ext, edema 1+ b/l lower ext. Laboratory Results - last 24 hr 04/06/16 04/06/16 04/06/16 05:35 05:35 05:35 WBC 12.3 H RBC 3.31 L Hgb 8.8 L Hct 29.1 L MCV 87.9 MCHC 30.3 L RDW 22.8 H Plt Count 407 MPV 8.0 Neutrophils % 69.0 Lymphocytes % 9.0 Monocytes % 8.0 Band Neutrophils 1.0 Metamyelocytes 9 H D Myelocytes 4 H D Nucleated RBCs 3 H Differential Comment Manual diff done Sodium 147 H Potassium 5.2 H Chloride 108 H Carbon Dioxide 37 H Anion Gap 2 L BUN 47 H Creatinine 1.9 H Random Glucose 82 Calcium 8.2 L Phosphorus 3.5 Magnesium 2.2 Random Vancomycin 16.083 Active Medications Generic Name Dose Route Start Last Admin Trade Name Freq PRN Reason Stop Dose Admin Acetaminophen 650 mg 04/03/16 20:06 Tylenol - PO Q6H PRN FEVER OR PAIN Albuterol Sulfate 1 amp 04/03/16 20:06 04/05/16 15:23 Ventolin 0.042trength) - NEB 1 amp Q6H PRN Administration SHORT OF BREATH/WHEEZING Albuterol/Ipratropium 1 amp 04/04/16 00:00 04/06/16 12:01 Duoneb - NEB 1 amp QIDR [facility] Administration Amlodipine Besylate 10 mg 04/04/16 10:00 04/06/16 09:13 Norvasc - PO 10 mg DAILY [facility] Administration Aspirin 81 mg 04/04/16 10:00 04/06/16 09:13 Ecotrin - PO 81 mg DAILY [facility] Administration Calcium Acetate 1,334 mg 04/04/16 08:00 04/06/16 17:14 Phoslo - PO 1,334 mg TIDCM [facility] Administration Docusate Sodium 100 mg 04/03/16 22:00 04/06/16 09:12 Colace - PO 100 mg BID [facility] Administration Duloxetine HCl 40 mg 04/04/16 10:00 04/06/16 09:12 Cymbalta - PO 40 mg DAILY [facility] Administration Epoetin Keith 20,000 unit 04/05/16 10:00 04/05/16 09:32 Procrit - SQ 20,000 unit MoWeFr@1000 [facility] Administration Furosemide 40 mg 04/06/16 10:00 04/06/16 09:12 Lasix Injection - IVPUSH 40 mg DAILY [facility] Administration Heparin Sodium (Porcine) 5,000 unit 04/03/16 22:00 04/06/16 14:25 Heparin - SQ 5,000 unit TID [facility] Administration Pantoprazole Sodium 100 mls @ 200 mls/hr 04/04/16 10:00 04/06/16 09:14 Protonix 40mg Ivpb (Pre-Docked) IVPB 200 mls/hr DAILY [facility] Administration Vancomycin HCl 250 mls @ 166.667 mls/hr 04/03/16 20:06 Vancomycin (Pre-Docked) IVPB 04/03/16 21:35 ONCE ONE Polyethylene Glycol 17 gm 04/04/16 10:00 04/06/16 09:13 Miralax (For Daily Use) - PO 17 grams DAILY [facility] Administration Prednisone 40 mg 04/04/16 10:00 04/06/16 09:12 Deltasone - PO 40 mg DAILY [facility] Administration Sodium Chloride 2 spray 04/03/16 20:06 [place] Nasal [place] - NS Q12H PRN NASAL CONGESTION Zinc Oxide/Panthenol/Vitamin E 1 applic 04/03/16 20:06 Balmex Cream - TP ASDIR PRN HYGEINE CBC, BMP 04/06/16 05:35 04/06/16 05:35 Microbiology 03/31/16 05:27 Blood - Peripheral Venous Blood Culture - Final S Aureus 04/04/16 21:00 Chest Wound Culture - Preliminary Staphylococcus Coagulase Neg 04/02/16 05:35 Blood - Peripheral Venous Blood Culture - Preliminary NO GROWTH OBTAINED AFTER 96 HOURS, INCUBATION TO CONTINUE FOR 1 DAYS. 04/02/16 05:35 Blood - Peripheral Venous Blood Culture - Preliminary NO GROWTH OBTAINED AFTER 96 HOURS, INCUBATION TO CONTINUE FOR 1 DAYS. Laboratory Tests 04/06/16 04/06/16 05:35 05:35 Phosphorus 3.5 Magnesium 2.2 Random Vancomycin 16.083 CXR 04/04/16: A single view the chest again reveals a widened mediastinum with congestive changes, pleural fluid and possible basilar infiltrates and/or atelectasis. The patient is rotated to the left. CXR 04/03/16 Since 04/02/2016 at 0731 hours again noted is the large heart, unfolded aorta, congestive changes, widened mediastinum and pleural fluid. Since the prior study there is no significant change. ASSESSMENT/PLAN: 75 year old male with pmh of COPD, PVD, Chronic lower ext lymphadema, CAD with stent, CHF, CKD with baseline creatinine of 1.9, nephrolithiasis presented to the ED with complaint of shortness of breath and cellulitis, patient was fount to have acute hypercapneic respiratory failure and acute renal failure. on 03/28 pt started developing fever, chills and rigors, tachycardia, was treated with vancomycin, clindamycin and atreonam. On 03/29 further developed, pt was weak, sleepy, with fever, tachycardia, tachypnea and hypotension. Severe Sepsis from b/l lower ext cellulitis or dialysis access r/o endocarditis blood culture, MRSA from permacath, peripheral draw from 03/28 to 03/31/16 Pt is being treated with Vancomycin and aztreonam Will stop aztreonam if ok with ID New blood culture on 04/02/16 negative for 96 hours, continue too follow urine culture, negative Dr Armijo consulted Vanco level 16 repeat in am vanco 1 gm today US doppler lower ext showed no DVT Echocardiogram no Endocarditis lower ext erythema almost resolved. Acute hypercapneic and hypoxic respiratory failure with respitatory acidosis rt to COPD exacerbation and diastolic heart failure and pleural effusion and severe Sepsis Pt was intubated 03/29/16 in ICU, Now is extubated on 03/30/16 on venti-mask 40 % titrate down FiO2 On prednisone 40mg po, decrease to 30mg for dose Continue bronchodilators Dialysis per renal Stable congestion on CXR negative fluid balance yesterday 2.5 Liter On Lasix 40mg IV QD Permacth removed, was the source for the MRSA bacteremia s/p Thoracentesis 03/21/16 and 03/07/16 Acute on Chronic kidney Injury Continue to monitor BUN and Cr Monitor intake and output Continue Phoslo Continue Calcitriol Dialysis per renal when access placed Dialysis access after negative blood culture Normocytic anemia likely due to chronic disease and renal disease Continue to monitor CBC daily Current Hgb 8.8 PRN transfusion if Hbg less than 7 of if rapid drop and massive bleeding fecal occult blood positive, pt to follow up with GI once stable Thrombocytopenia (resolved) Hypertension Currently controlled on Norvasc Coronary artery disease s/p stenting on 03/2015 pt is on aspirin Po Constipation Pt is on Colace 100mg Po BID Pt is on miralax daily FEN Fluid: none Electrolytes: continue to monitor Nutrition: Diabetic low sodium diet Dvt prophylaxis: On heparin SQ Disposition: DC planning to [facility] Visit type - Emergency Visit Emergency Visit: Yes ED Registration Date: 02/18/16 Care time: The patient presented to the Emergency Department on the above date and was hospitalized for further evaluation of their emergent condition. - New Patient This patient is new to me today: No - Critical Care Critical Care patient: No
[2016-04-07] MEDS: HEPARIN NA (PORCINE) 5,000 UNITS/ML 1ML VIAL SQ SCH ×3 (06:16→21:30)
[2016-04-07] MEDS: ALBUTEROL SO4 2.5/IPRATROPIUM 0.5 INH SOL 3 ML VIAL.NEB. NEB SCH ×4 (06:25→18:04)
[2016-04-07 08:27] LABS: MCH 26.5 pg (25.7-33.7); MCHC 30.3 g/dl (32.0-35.9); MEAN CELL VOLUME 87.5 fl (80-96); MEAN PLT VOLUME 8.1 fl (7.5-11.1); PLATELET COUNT 392 K/MM3 (134-434); RDW 22.1 % (11.9-15.9); WHITE BLOOD COUNT 12.7 K/mm3 (4.0-10.0)
[2016-04-07 08:47] LABS: CALCIUM 8.2 mg/dL (8.5-10.1); CREATININE 1.8 mg/dL (0.7-1.3); MAGNESIUM 2.2 mg/dL (1.8-2.4); PHOSPHOROUS 3.7 mg/dL (2.5-4.9)
[2016-04-07] MEDS ORDERED: PT OWN MED DRAWER 7, Y5N ONE ×2 (08:48→12:50)
[2016-04-07] MEDS: PANTOPRAZOLE SODIUM 100 ML IVPB SCH (09:08)
[2016-04-07] MEDS: FUROSEMIDE 40 MG/4 ML INJECTABLE VIAL IVPUSH SCH (09:08)
[2016-04-07] MEDS: ASPIRIN COATED 81 MG TABLET.EC PO SCH (09:08)
[2016-04-07] MEDS: DULoxetine HCL 20 MG CAPSULE.DR (FP) PO SCH (09:08)
[2016-04-07] MEDS: amLODIPine BESYLATE 10 MG TABLET (FP) PO SCH (09:08)
[2016-04-07] MEDS: CALCIUM ACETATE 667 MG CAPSULE (FP) PO SCH ×3 (09:08→18:05)
[2016-04-07] MEDS: POLYETHYLENE GLYCOL 3350 119 GM BTL PO SCH (09:08)
[2016-04-07] MEDS: predniSONE 20 MG TABLET (UD) PO SCH (09:08)
[2016-04-07] MEDS: DOCUSATE SODIUM 100 MG CAPSULE (FP) PO SCH ×2 (09:08→21:30)
--- NOTE | 2016-04-07 09:34 | PN ---
Progress Note, Physician Chief Complaint: alert and oriented, no distress - Current Medication List Current Medications: Active Medications Acetaminophen (Tylenol -) 650 mg PO Q6H PRN PRN Reason: FEVER OR PAIN Albuterol Sulfate (Ventolin 0.042trength) -) 1 amp NEB Q6H PRN PRN Reason: SHORT OF BREATH/WHEEZING Last Admin: 04/05/16 15:23 Dose: 1 amp Albuterol/Ipratropium (Duoneb -) 1 amp NEB QIDR [facility] Last Admin: 04/07/16 06:25 Dose: 1 amp Amlodipine Besylate (Norvasc -) 10 mg PO DAILY [facility] Last Admin: 04/07/16 09:08 Dose: 10 mg Aspirin (Ecotrin -) 81 mg PO DAILY [facility] Last Admin: 04/07/16 09:08 Dose: 81 mg Calcium Acetate (Phoslo -) 1,334 mg PO TIDCM [facility] Last Admin: 04/07/16 09:08 Dose: 1,334 mg Docusate Sodium (Colace -) 100 mg PO BID [facility] Last Admin: 04/07/16 09:08 Dose: 100 mg Duloxetine HCl (Cymbalta -) 40 mg PO DAILY [facility] Last Admin: 04/07/16 09:08 Dose: 40 mg Epoetin Keith (Procrit -) 20,000 unit SQ MoWeFr@1000 [facility] Last Admin: 04/05/16 09:32 Dose: 20,000 unit Furosemide (Lasix Injection -) 40 mg IVPUSH DAILY [facility] Last Admin: 04/07/16 09:08 Dose: 40 mg Heparin Sodium (Porcine) (Heparin -) 5,000 unit SQ TID [facility] Last Admin: 04/07/16 06:16 Dose: 5,000 unit Pantoprazole Sodium (Protonix 40mg Ivpb (Pre-Docked)) 100 mls @ 200 mls/hr IVPB DAILY [facility] Last Admin: 04/07/16 09:08 Dose: 200 mls/hr Vancomycin HCl (Vancomycin (Pre-Docked)) 250 mls @ 166.667 mls/hr IVPB ONCE ONE Stop: 04/03/16 21:35 Polyethylene Glycol (Miralax (For Daily Use) -) 17 gm PO DAILY [facility] Last Admin: 04/07/16 09:08 Dose: 17 grams Prednisone (Deltasone -) 40 mg PO DAILY [facility] Last Admin: 04/07/16 09:08 Dose: 40 mg Sodium Chloride ([place] Nasal [place] -) 2 spray NS Q12H PRN PRN Reason: NASAL CONGESTION Zinc Oxide/Panthenol/Vitamin E (Balmex Cream -) 1 applic TP ASDIR PRN PRN Reason: HYGEINE - Objective Vital Signs: Vital Signs Temperature 98.4 F 04/07/16 06:00 Pulse Rate 86 04/07/16 06:00 Respiratory Rate 20 04/07/16 06:00 Blood Pressure 144/69 04/07/16 06:00 O2 Sat by Pulse Oximetry (%) 96 04/06/16 21:00 Constitutional: Yes: No Distress Eyes: Yes: Conjunctiva Clear Cardiovascular: Yes: Regular Rate and Rhythm Respiratory: Yes: CTA Bilaterally Gastrointestinal: Yes: Soft (non-tender), Abdomen, Obese Edema: Yes Edema: LLE: 1+ (much improved), RLE: 1+ (much improved) Neurological: Yes: Alert Labs: CBC, BMP 04/07/16 07:10 04/07/16 07:10 INR, PTT INR 1.27 (0.82-1.09) H 03/30/16 05:20 Fibrinogen 547.0 mg/dL (238-498) H 03/17/16 06:30 Microbiology 04/02/16 05:35 Blood - Peripheral Venous Blood Culture - Final NO GROWTH AFTER 5 DAYS INCUBATION 04/02/16 05:35 Blood - Peripheral Venous Blood Culture - Final NO GROWTH AFTER 5 DAYS INCUBATION - ....Imaging EKG: Image Reviewed (TELE: NSR with [facility]) Assessment/Plan Assessment/Plan IMP: Acute on chronic hypercarbic respiratory failure Chronic COPD Sepsis, gram + Bacteremia, infected HD catheter- removed ESRD CAD REC: Resp. failure: required intubation during admission -now extubated, s/p thoracentesis for pleural effusions -diuresing well now and has not required further HD -bun/creat trending down -cont Lasix 40mg IV daily -bipap as needed -steroids as per pulm reccs Sepsis: -gram + bacteremia; infected HD catheter removed.Surveillance cultures pending with last set remaining NGTD -Abx as per ID -TTE showed no evidence of endocarditis CAD: s/p PCI with stents this year -thrombocytopenia resolved -cont ASA 81mg daily
--- NOTE | 2016-04-07 11:22 | PN ---
Physical Exam: SUBJECTIVE: Patient seen and examined Pt is awake, alert but mild anxious Pt denies chest pain, palpitation, shortness of breath NO fever, chills OBJECTIVE: Vital Signs Period Temp Pulse Resp BP Sys/[place] Pulse Ox Last 24 Hr 97.6 F-98.6 F 86-100 18-23 106-149/58-80 92-96 ENERAL: The patient is awake, alert oriented, in no distress. HEAD: Normal with no signs of trauma. EYES: PERRL, extraocular movements intact, sclera anicteric, conjunctiva clear. No ptosis. ENT: Ears normal, nares patent, oropharynx clear without exudates, dry mucous membranes. NECK: Trachea midline, full range of motion, supple. LUNGS: scattered ronchi, b/l crackles in lung bases HEART: tachycardic, Regular rate and rhythm, S1, S2 without murmur, rub or gallop. ABDOMEN: Soft, nontender, nondistended, normoactive bowel sounds, no guarding, no rebound, no hepatosplenomegaly, no masses. EXTREMITIES: 2+ pulses, warm, well-perfused. b/l lower ext edema 1+ with wrinkle skin, lower ext 1+ pulses NEUROLOGICAL: gait not observed. Strength 5/5 in all ext PSYCH: anxious mood, normal affect. SKIN: Warm, dry, wrinkled skin in b/l lower ext, edema 1+ b/l lower ext. Laboratory Results - last 24 hr 04/07/16 04/07/16 07:10 07:10 WBC 12.7 H RBC 3.13 L Hgb 8.3 L Hct 27.4 L MCV 87.5 MCHC 30.3 L RDW 22.1 H Plt Count 392 MPV 8.1 Sodium 147 H Potassium 4.5 Chloride 106 Carbon Dioxide 35 H Anion Gap 6 L BUN 40 H Creatinine 1.8 H Random Glucose 83 Calcium 8.2 L Phosphorus 3.7 Magnesium 2.2 Random Vancomycin 18.591 Active Medications Generic Name Dose Route Start Last Admin Trade Name Freq PRN Reason Stop Dose Admin Acetaminophen 650 mg 04/03/16 20:06 Tylenol - PO Q6H PRN FEVER OR PAIN Albuterol Sulfate 1 amp 04/03/16 20:06 04/05/16 15:23 Ventolin 0.042trength) - NEB 1 amp Q6H PRN Administration SHORT OF BREATH/WHEEZING Albuterol/Ipratropium 1 amp 04/04/16 00:00 04/07/16 06:25 Duoneb - NEB 1 amp QIDR [facility] Administration Amlodipine Besylate 10 mg 04/04/16 10:00 04/07/16 09:08 Norvasc - PO 10 mg DAILY [facility] Administration Aspirin 81 mg 04/04/16 10:00 04/07/16 09:08 Ecotrin - PO 81 mg DAILY [facility] Administration Calcium Acetate 1,334 mg 04/04/16 08:00 04/07/16 09:08 Phoslo - PO 1,334 mg TIDCM [facility] Administration Docusate Sodium 100 mg 04/03/16 22:00 04/07/16 09:08 Colace - PO 100 mg BID [facility] Administration Duloxetine HCl 40 mg 04/04/16 10:00 04/07/16 09:08 Cymbalta - PO 40 mg DAILY [facility] Administration Epoetin Keith 20,000 unit 04/05/16 10:00 04/05/16 09:32 Procrit - SQ 20,000 unit MoWeFr@1000 [facility] Administration Furosemide 40 mg 04/06/16 10:00 04/07/16 09:08 Lasix Injection - IVPUSH 40 mg DAILY [facility] Administration Heparin Sodium (Porcine) 5,000 unit 04/03/16 22:00 04/07/16 06:16 Heparin - SQ 5,000 unit TID [facility] Administration Pantoprazole Sodium 100 mls @ 200 mls/hr 04/04/16 10:00 04/07/16 09:08 Protonix 40mg Ivpb (Pre-Docked) IVPB 200 mls/hr DAILY [facility] Administration Vancomycin HCl 250 mls @ 166.667 mls/hr 04/03/16 20:06 Vancomycin (Pre-Docked) IVPB 04/03/16 21:35 ONCE ONE Polyethylene Glycol 17 gm 04/04/16 10:00 04/07/16 09:08 Miralax (For Daily Use) - PO 17 grams DAILY [facility] Administration Prednisone 40 mg 04/04/16 10:00 04/07/16 09:08 Deltasone - PO 40 mg DAILY [facility] Administration Sodium Chloride 2 spray 04/03/16 20:06 [place] Nasal [place] - NS Q12H PRN NASAL CONGESTION Zinc Oxide/Panthenol/Vitamin E 1 applic 04/03/16 20:06 Balmex Cream - TP ASDIR PRN HYGEINE CBC, BMP 04/07/16 07:10 04/07/16 07:10 Microbiology 04/04/16 21:00 Chest Gram Stain - Final 04/04/16 21:00 Chest Wound Culture - Final S Aureus Staphylococcus Coagulase Neg 04/02/16 05:35 Blood - Peripheral Venous Blood Culture - Final NO GROWTH AFTER 5 DAYS INCUBATION 04/02/16 05:35 Blood - Peripheral Venous Blood Culture - Final NO GROWTH AFTER 5 DAYS INCUBATION 03/31/16 05:27 Blood - Peripheral Venous Blood Culture - Final S Aureus CXR 04/04/16: A single view the chest again reveals a widened mediastinum with congestive changes, pleural fluid and possible basilar infiltrates and/or atelectasis. The patient is rotated to the left. CXR 04/03/16 Since 04/02/2016 at 0731 hours again noted is the large heart, unfolded aorta, congestive changes, widened mediastinum and pleural fluid. Since the prior study there is no significant change. ASSESSMENT/PLAN: 75 year old male with pmh of COPD, PVD, Chronic lower ext lymphadema, CAD with stent, CHF, CKD with baseline creatinine of 1.9, nephrolithiasis presented to the ED with complaint of shortness of breath and cellulitis, patient was fount to have acute hypercapneic respiratory failure and acute renal failure. on 03/28 pt started developing fever, chills and rigors, tachycardia, was treated with vancomycin, clindamycin and atreonam. On 03/29 further developed, pt was weak, sleepy, with fever, tachycardia, tachypnea and hypotension. Severe Sepsis from dialysis access r/o endocarditis blood culture, MRSA from permacath, peripheral draw from 03/28 to 03/31/16 Pt is being treated with Vancomycin New blood culture on 04/02/16 negative urine culture, negative [facility] in am Echocardiogram no Endocarditis lower ext erythema almost resolved. Acute hypercapneic and hypoxic respiratory failure with respitatory acidosis rt to COPD exacerbation and diastolic heart failure and pleural effusion and severe Sepsis Pt was intubated 03/29/16 in ICU, Now is extubated on 03/30/16 on venti-mask 40 % titrate down FiO2 On prednisone 40mg po, decrease to 30mg for dose Continue bronchodilators Dialysis per renal Stable congestion on CXR negative fluid balance yesterday 2.9 Liter On Lasix 40mg IV QD, will swicth to PO lasix Permacth removed, was the source for the MRSA bacteremia s/p Thoracentesis 03/21/16 and 03/07/16 Acute on Chronic kidney Injury Continue to monitor BUN and Cr Monitor intake and output Continue Phoslo Continue Calcitriol Dialysis per renal when access placed Dialysis access after negative blood culture improving creatinine Normocytic anemia likely due to chronic disease and renal disease Continue to monitor CBC daily Current Hgb 8.3 PRN transfusion if Hbg less than 7 of if rapid drop and massive bleeding fecal occult blood positive, pt to follow up with GI once stable Thrombocytopenia (resolved) Hypertension Currently controlled on Norvas Coronary artery disease s/p stenting on 03/2015 pt is on aspirin Po Constipation Pt is on Colace 100mg Po BID Pt is on miralax daily FEN Fluid: none Electrolytes: continue to monitor Nutrition: Diabetic low sodium diet Dvt prophylaxis: On heparin SQ Disposition: DC planning to [facility] Visit type - Emergency Visit Emergency Visit: Yes ED Registration Date: 02/18/16 Care time: The patient presented to the Emergency Department on the above date and was hospitalized for further evaluation of their emergent condition. - New Patient This patient is new to me today: No - Critical Care Critical Care patient: No
[2016-04-07] MEDS: EPOETIN ALFA 20,000 UNIT/1 ML VIAL SQ SCH (12:11)
--- NOTE | 2016-04-07 12:18 | PN ---
Progress Note, Physician History of Present Illness: NAD. Oriented and alert. - Current Medication List Current Medications: Active Medications Acetaminophen (Tylenol -) 650 mg PO Q6H PRN PRN Reason: FEVER OR PAIN Albuterol Sulfate (Ventolin 0.042trength) -) 1 amp NEB Q6H PRN PRN Reason: SHORT OF BREATH/WHEEZING Last Admin: 04/05/16 15:23 Dose: 1 amp Albuterol/Ipratropium (Duoneb -) 1 amp NEB QIDR [facility] Last Admin: 04/07/16 11:24 Dose: 1 amp Amlodipine Besylate (Norvasc -) 10 mg PO DAILY [facility] Last Admin: 04/07/16 09:08 Dose: 10 mg Aspirin (Ecotrin -) 81 mg PO DAILY [facility] Last Admin: 04/07/16 09:08 Dose: 81 mg Calcium Acetate (Phoslo -) 1,334 mg PO TIDCM [facility] Last Admin: 04/07/16 09:08 Dose: 1,334 mg Docusate Sodium (Colace -) 100 mg PO BID [facility] Last Admin: 04/07/16 09:08 Dose: 100 mg Duloxetine HCl (Cymbalta -) 40 mg PO DAILY [facility] Last Admin: 04/07/16 09:08 Dose: 40 mg Epoetin Keith (Procrit -) 20,000 unit SQ MoWeFr@1000 [facility] Last Admin: 04/05/16 09:32 Dose: 20,000 unit Furosemide (Lasix Injection -) 40 mg IVPUSH DAILY [facility] Last Admin: 04/07/16 09:08 Dose: 40 mg Heparin Sodium (Porcine) (Heparin -) 5,000 unit SQ TID [facility] Last Admin: 04/07/16 06:16 Dose: 5,000 unit Pantoprazole Sodium (Protonix 40mg Ivpb (Pre-Docked)) 100 mls @ 200 mls/hr IVPB DAILY [facility] Last Admin: 04/07/16 09:08 Dose: 200 mls/hr Vancomycin HCl (Vancomycin (Pre-Docked)) 250 mls @ 166.667 mls/hr IVPB ONCE ONE Stop: 04/03/16 21:35 Polyethylene Glycol (Miralax (For Daily Use) -) 17 gm PO DAILY [facility] Last Admin: 04/07/16 09:08 Dose: 17 grams Prednisone (Deltasone -) 40 mg PO DAILY [facility] Last Admin: 04/07/16 09:08 Dose: 40 mg Sodium Chloride ([place] -) 2 spray NS Q12H PRN PRN Reason: NASAL CONGESTION Vancomycin HCl (Vancomycin (Pre-Docked)) 1,000 mg IVPB ONCE ONE Stop: 04/07/16 13:01 Zinc Oxide/Panthenol/Vitamin E (Balmex Cream -) 1 applic TP ASDIR PRN PRN Reason: HYGEINE - Objective Vital Signs: Vital Signs Temperature 98.3 F 04/07/16 09:10 Pulse Rate 88 04/07/16 11:23 Respiratory Rate 23 04/07/16 09:10 Blood Pressure 106/58 04/07/16 09:10 O2 Sat by Pulse Oximetry (%) 97 04/07/16 11:23 Constitutional: Yes: No Distress Eyes: No: Sclera Icterus HENT: Yes: Atraumatic, Normocephalic Neck: Yes: Supple, Trachea Midline Cardiovascular: Yes: Regular Rate and Rhythm. No: JVD Respiratory: Yes: CTA Bilaterally Edema: No Neurological: Yes: Alert, Oriented Labs: CBC, BMP 04/07/16 07:10 04/07/16 07:10 INR, PTT INR 1.27 (0.82-1.09) H 03/30/16 05:20 Fibrinogen 547.0 mg/dL (238-498) H 03/17/16 06:30 Problem List - Problems (1) COPD exacerbation Code(s): J44.1 - CHRONIC OBSTRUCTIVE PULMONARY DISEASE W (ACUTE) EXACERBATION (2) Acute and chronic respiratory failure ([id number]) Code(s): J96.20 - ACUTE AND CHR RESP FAILURE, UNSP W HYPOXIA OR HYPERCAPNIA Qualifiers: Qualified Code(s): J96.21 - Acute and chronic respiratory failure with hypoxia (3) Acute kidney failure Code(s): N17.9 - ACUTE KIDNEY FAILURE, UNSPECIFIED Qualifiers: Qualified Code(s): N17.9 - Acute kidney failure, unspecified (4) Chronic kidney disease (CKD) Code(s): N18.9 - CHRONIC KIDNEY DISEASE, UNSPECIFIED Qualifiers: Qualified Code(s): N18.9 - Chronic kidney disease, unspecified (5) Cellulitis Code(s): L03.90 - CELLULITIS, UNSPECIFIED (6) Hyperkalemia Code(s): E87.5 - HYPERKALEMIA (7) Arteriosclerotic heart disease (ASHD) Code(s): I25.10 - ATHSCL HEART DISEASE OF [place] CORONARY ARTERY W/O ANG PCTRS (8) Obesities, morbid Code(s): E66.01 - MORBID (SEVERE) OBESITY DUE TO EXCESS CALORIES Qualifiers: Qualified Code(s): E66.2 - Morbid (severe) obesity with alveolar hypoventilation Assessment/Plan Acute on Chronic Respiratory failure:respiratory status improved;patient remains trachypneic and needs O2 Sepis-MRSA: on antibiotics. Latest blood cultures: no growth COPD Exacerbation Acute on Chronic Respiratory Failure Morbid Obesity Acute and Chronic Renal Failure: improved. Renal function continues to improve. Creat 1.8 ASHD CHF-improved Plan: BiPAP PRN Antibiotic per I.D. Inhaled bronchodilators Prednisone taper-pt was on maintenance dose of 10 mg daily prior to hospitalization O2 to maintain SaO2>90 Bedside PT. restarted Discharge planning-pt will need physical therapy in SNF
[2016-04-07] MEDS ORDERED: VANCOMYCIN 1 GRAM (PRE-DOCKED) 1,000 MG/250 ML BAG IVPB ONE (13:00)
[2016-04-07] MEDS ORDERED: VANCOMYCIN 1,000 MG VIAL (RESTRICTED TO ID ONLY) IVPUSH ONE (13:42)
--- NOTE | 2016-04-07 13:46 | PN ---
Progress Note, Physician History of Present Illness: better no issues - Current Medication List Current Medications: Active Medications Acetaminophen (Tylenol -) 650 mg PO Q6H PRN PRN Reason: FEVER OR PAIN Albuterol Sulfate (Ventolin 0.042trength) -) 1 amp NEB Q6H PRN PRN Reason: SHORT OF BREATH/WHEEZING Last Admin: 04/05/16 15:23 Dose: 1 amp Albuterol/Ipratropium (Duoneb -) 1 amp NEB QIDR [facility] Last Admin: 04/07/16 11:24 Dose: 1 amp Amlodipine Besylate (Norvasc -) 10 mg PO DAILY [facility] Last Admin: 04/07/16 09:08 Dose: 10 mg Aspirin (Ecotrin -) 81 mg PO DAILY [facility] Last Admin: 04/07/16 09:08 Dose: 81 mg Calcium Acetate (Phoslo -) 1,334 mg PO TIDCM [facility] Last Admin: 04/07/16 12:46 Dose: 1,334 mg Docusate Sodium (Colace -) 100 mg PO BID [facility] Last Admin: 04/07/16 09:08 Dose: 100 mg Duloxetine HCl (Cymbalta -) 40 mg PO DAILY [facility] Last Admin: 04/07/16 09:08 Dose: 40 mg Epoetin Keith (Procrit -) 20,000 unit SQ MoWeFr@1000 [facility] Last Admin: 04/07/16 12:11 Dose: 20,000 unit Furosemide (Lasix Injection -) 40 mg IVPUSH DAILY [facility] Last Admin: 04/07/16 09:08 Dose: 40 mg Heparin Sodium (Porcine) (Heparin -) 5,000 unit SQ TID [facility] Last Admin: 04/07/16 06:16 Dose: 5,000 unit Pantoprazole Sodium (Protonix 40mg Ivpb (Pre-Docked)) 100 mls @ 200 mls/hr IVPB DAILY [facility] Last Admin: 04/07/16 09:08 Dose: 200 mls/hr Vancomycin HCl (Vancomycin (Pre-Docked)) 250 mls @ 166.667 mls/hr IVPB ONCE ONE Stop: 04/03/16 21:35 Polyethylene Glycol (Miralax (For Daily Use) -) 17 gm PO DAILY [facility] Last Admin: 04/07/16 09:08 Dose: 17 grams Prednisone (Deltasone -) 40 mg PO DAILY [facility] Last Admin: 04/07/16 09:08 Dose: 40 mg Sodium Chloride ([place] -) 2 spray NS Q12H PRN PRN Reason: NASAL CONGESTION Vancomycin HCl (Vancomycin) 250 mg IVPUSH ONCE ONE Stop: 04/07/16 13:43 Zinc Oxide/Panthenol/Vitamin E (Balmex Cream -) 1 applic TP ASDIR PRN PRN Reason: HYGEINE - Objective Vital Signs: Vital Signs Temperature 98.3 F 04/07/16 09:10 Pulse Rate 88 04/07/16 11:23 Respiratory Rate 23 04/07/16 09:10 Blood Pressure 106/58 04/07/16 09:10 O2 Sat by Pulse Oximetry (%) 97 04/07/16 11:23 Constitutional: Yes: No Distress, Calm Cardiovascular: Yes: Regular Rate and Rhythm Respiratory: Yes: Regular, Poor Air Entry Gastrointestinal: Yes: Normal Bowel Sounds, Soft Musculoskeletal: Yes: Other Extremities: Yes: Other Edema: LLE: 1+, RLE: 1+ Neurological: Yes: Alert, Oriented Psychiatric: Yes: Alert, Oriented Labs: CBC, BMP 04/07/16 07:10 04/07/16 07:10 INR, PTT INR 1.27 (0.82-1.09) H 03/30/16 05:20 Fibrinogen 547.0 mg/dL (238-498) H 03/17/16 06:30 Assessment/Plan 75 year-old man with a PMH of HTN, PVD, COPD, CKD (baseline Cr 1.9), nephrolithiasis, and chronic LE lymphedema. Admitted in acute renal failure. Acute on chronic renal failure Hyperkalemia Sepsis s Hypertension Peripheral vascular disease Hypercarbic respiratory failure COPD bilateral cellulitis of the legs rsv lung infection pleural effusion anemia fevers gm positive bacteremia mrsa bacteremia plan continue vanco dose ordered will check vanco levels tomorrow patient should start getting pt/ot
--- NOTE | 2016-04-07 14:01 | PN ---
Progress Note (short form) - Note Progress Note: Renal Follow up for KARLOS Pt seen and examined at the bedside no complaints Vital Signs Temperature 98.3 F 04/07/16 09:10 Pulse Rate 88 04/07/16 11:23 Respiratory Rate 23 04/07/16 09:10 Blood Pressure 106/58 04/07/16 09:10 O2 Sat by Pulse Oximetry (%) 97 04/07/16 11:23 Intake & Output 04/04/16 04/05/16 04/06/16 04/07/16 23:59 23:59 23:59 23:59 Intake Total 1882 320 300 100 Output Total 3000 2800 3200 1400 Balance -1118 -2480 -2900 -1300 Weight 256 lb 13.416 oz Gen: NAD CVS: RRR No M/R Lungs: dec BS throughout the lung rey Abd: Soft NT + Mild distension Ext: 1+ edema CBC, BMP 04/07/16 07:10 04/07/16 07:10 Laboratory Tests 04/07/16 07:10 Magnesium 2.2 Current Medications Acetaminophen (Tylenol -) 650 mg PO Q6H PRN PRN Reason: FEVER OR PAIN Albuterol Sulfate (Ventolin 0.042trength) -) 1 amp NEB Q6H PRN PRN Reason: SHORT OF BREATH/WHEEZING Last Admin: 04/05/16 15:23 Dose: 1 amp Albuterol/Ipratropium (Duoneb -) 1 amp NEB QIDR [facility] Last Admin: 04/07/16 11:24 Dose: 1 amp Amlodipine Besylate (Norvasc -) 10 mg PO DAILY [facility] Last Admin: 04/07/16 09:08 Dose: 10 mg Aspirin (Ecotrin -) 81 mg PO DAILY [facility] Last Admin: 04/07/16 09:08 Dose: 81 mg Calcium Acetate (Phoslo -) 1,334 mg PO TIDCM [facility] Last Admin: 04/07/16 12:46 Dose: 1,334 mg Docusate Sodium (Colace -) 100 mg PO BID [facility] Last Admin: 04/07/16 09:08 Dose: 100 mg Duloxetine HCl (Cymbalta -) 40 mg PO DAILY [facility] Last Admin: 04/07/16 09:08 Dose: 40 mg Epoetin Keith (Procrit -) 20,000 unit SQ MoWeFr@1000 [facility] Last Admin: 04/07/16 12:11 Dose: 20,000 unit Furosemide (Lasix Injection -) 40 mg IVPUSH DAILY [facility] Last Admin: 04/07/16 09:08 Dose: 40 mg Heparin Sodium (Porcine) (Heparin -) 5,000 unit SQ TID [facility] Last Admin: 04/07/16 06:16 Dose: 5,000 unit Pantoprazole Sodium (Protonix 40mg Ivpb (Pre-Docked)) 100 mls @ 200 mls/hr IVPB DAILY [facility] Last Admin: 04/07/16 09:08 Dose: 200 mls/hr Vancomycin HCl (Vancomycin (Pre-Docked)) 250 mls @ 166.667 mls/hr IVPB ONCE ONE Stop: 04/03/16 21:35 Polyethylene Glycol (Miralax (For Daily Use) -) 17 gm PO DAILY [facility] Last Admin: 04/07/16 09:08 Dose: 17 grams Prednisone (Deltasone -) 40 mg PO DAILY [facility] Last Admin: 04/07/16 09:08 Dose: 40 mg Sodium Chloride ([place] Nasal [place] -) 2 spray NS Q12H PRN PRN Reason: NASAL CONGESTION Vancomycin HCl (Vancomycin) 250 mg IVPUSH ONCE ONE Stop: 04/07/16 13:43 Zinc Oxide/Panthenol/Vitamin E (Balmex Cream -) 1 applic TP ASDIR PRN PRN Reason: HYGEINE A/P 75 year old Gentleman with PMhx of CKD Stage 3 (baseline Cr 1.9), Hx of Nephrolithiasis, Hypertension, COPD, CHF, PVD, Chronic LE lymph edema who was sent into the ED from wound care for increased lethargy and decreased urination for several days with KARLOS with BUN/Cr of 115/7.2 and K of 6.5 #Acute on Chronic Renal failure with volume overload Renal function improving Continue Lasix 40mg IV daily Trend BUN/Cr, Mg, K #MRSA Bactermia from dialysis catheter infection Repeat blood cultures from 04/02 w/o growth Continue Vanco dosed by levels ID following YIMI 03/30 w/o Veg #Anemia Continue Procrit TIW Melvin Johnson DO
[2016-04-07] MEDS ORDERED: VANCOMYCIN 250 MG in DEXTROSE 5%-WATER - 100 ML IVPB ONE (16:30)
--- NOTE | 2016-04-07 17:23 | PN ---
Teaching Attending Note Name of Resident: Zachery Blum ATTENDING PHYSICIAN STATEMENT I saw and evaluated the patient. I reviewed the resident's note and discussed the case with the resident. I agree with the resident's findings and plan as documented. SUBJECTIVE: no feer or chills. feels better today did not use BIPAP over night OBJECTIVE: NAD Cv : RRR Lungs: decreased breath sounds at bases ,no wheezes or crackles ext: 2 + pitting edema , erythema improved ASSESSMENT AND PLAN: 75 year-old man with a PMHx of HTN, PVD, COPD, CKD (baseline Cr 1.8), nephrolithiasis, D CHF , CAD s/p stenting in 03/23 and chronic LE lymphedema. presented with SOB and was found to have acute hypercapnic resp failure with acute renal failure . 1- Acute hypercapnic resp failure due to COPD exa , diastolic heart failure and pleural effusions . s/p intubation and now extubated . s/p bilateral thoracocentesis decrease steroids to 30 /day starting tomorrow. was on 10 daily maintenance dose prior to admission will change to po lasix 40 daily , and see response . if neeed can be made 40 BID . in preparation for out pt plan Stilll requires VEnti mask . Refuses to use BIPAP 2-MRSA bacteremia 2/2 to infected HD cath . LE cellulitis cont Vanco need 4 weeks from first neg blood cx ( 04/02 ) off Aztreonam 3- KARLOS on CKD: improved . on cacitriol and phoslo 4- Normocytic anemia. s/p transfusion. cont to monitor. Transfuse PRN procrit per renal 5- Thrombocytopenia: recovered 6- HTN: cont norvasc 7- CAD : Stenting 03/23 cont asa . Plan for dc early next week .
--- NOTE | 2016-04-07 18:08 | PN ---
Physical Exam: SUBJECTIVE: Patient seen and examined Pt is awake, alert but mild anxious Pt denies chest pain, palpitation, shortness of breath NO fever, chills OBJECTIVE: Vital Signs Period Temp Pulse Resp BP Sys/[place] Pulse Ox Last 24 Hr 97.6 F-98.6 F 81-88 20-23 106-149/58-76 93-97 Laboratory Results - last 24 hr 04/07/16 04/07/16 07:10 07:10 WBC 12.7 H RBC 3.13 L Hgb 8.3 L Hct 27.4 L MCV 87.5 MCHC 30.3 L RDW 22.1 H Plt Count 392 MPV 8.1 Sodium 147 H Potassium 4.5 Chloride 106 Carbon Dioxide 35 H Anion Gap 6 L BUN 40 H Creatinine 1.8 H Random Glucose 83 Calcium 8.2 L Phosphorus 3.7 Magnesium 2.2 Random Vancomycin 18.591 Active Medications Generic Name Dose Route Start Last Admin Trade Name Freq PRN Reason Stop Dose Admin Acetaminophen 650 mg 04/03/16 20:06 Tylenol - PO Q6H PRN FEVER OR PAIN Albuterol Sulfate 1 amp 04/03/16 20:06 04/05/16 15:23 Ventolin 0.042trength) - NEB 1 amp Q6H PRN Administration SHORT OF BREATH/WHEEZING Albuterol/Ipratropium 1 amp 04/04/16 00:00 04/07/16 18:04 Duoneb - NEB Not Given QIDR [facility] Amlodipine Besylate 10 mg 04/04/16 10:00 04/07/16 09:08 Norvasc - PO 10 mg DAILY [facility] Administration Aspirin 81 mg 04/04/16 10:00 04/07/16 09:08 Ecotrin - PO 81 mg DAILY [facility] Administration Calcium Acetate 1,334 mg 04/04/16 08:00 04/07/16 18:05 Phoslo - PO 1,334 mg TIDCM [facility] Administration Docusate Sodium 100 mg 04/03/16 22:00 04/07/16 09:08 Colace - PO 100 mg BID [facility] Administration Duloxetine HCl 30 mg 04/08/16 10:00 Cymbalta - PO DAILY [facility] Epoetin Keith 20,000 unit 04/05/16 10:00 04/07/16 12:11 Procrit - SQ 20,000 unit MoWeFr@1000 [facility] Administration Furosemide 40 mg 04/08/16 10:00 Lasix - PO DAILY [facility] Heparin Sodium (Porcine) 5,000 unit 04/03/16 22:00 04/07/16 14:42 Heparin - SQ 5,000 unit TID [facility] Administration Pantoprazole Sodium 100 mls @ 200 mls/hr 04/04/16 10:00 04/07/16 09:08 Protonix 40mg Ivpb (Pre-Docked) IVPB 200 mls/hr DAILY [facility] Administration Polyethylene Glycol 17 gm 04/04/16 10:00 04/07/16 09:08 Miralax (For Daily Use) - PO 17 grams DAILY [facility] Administration Prednisone 40 mg 04/04/16 10:00 04/07/16 09:08 Deltasone - PO 40 mg DAILY [facility] Administration Sodium Chloride 2 spray 04/03/16 20:06 [place] Nasal [place] - NS Q12H PRN NASAL CONGESTION Zinc Oxide/Panthenol/Vitamin E 1 applic 04/03/16 20:06 Balmex Cream - TP ASDIR PRN HYGEINE CBC, BMP 04/07/16 07:10 04/07/16 07:10 ASSESSMENT/PLAN:
[2016-04-08] MEDS: ALBUTEROL SO4 2.5/IPRATROPIUM 0.5 INH SOL 3 ML VIAL.NEB. NEB SCH ×4 (00:05→17:27)
[2016-04-08] MEDS ORDERED: ALBUTEROL SO4 0.083% IH SOL 2.5 MG/3 ML VIAL.NEB. NEB ONE (02:53)
[2016-04-08] MEDS: ALBUTEROL SO4 0.042% IH SOL 1.25 MG/3 ML VIAL.NEB NEB PRN (02:57)
[2016-04-08] MEDS: HEPARIN NA (PORCINE) 5,000 UNITS/ML 1ML VIAL SQ SCH ×3 (06:41→21:41)
[2016-04-08 07:21] LABS: MCH 26.4 pg (25.7-33.7); MCHC 30.5 g/dl (32.0-35.9); MEAN CELL VOLUME 86.8 fl (80-96); MEAN PLT VOLUME 7.7 fl (7.5-11.1); PLATELET COUNT 388 K/MM3 (134-434); RDW 21.8 % (11.9-15.9); WHITE BLOOD COUNT 13.5 K/mm3 (4.0-10.0)
[2016-04-08 07:37] LABS: CALCIUM 8.2 mg/dL (8.5-10.1); CREATININE 1.8 mg/dL (0.7-1.3); MAGNESIUM 2.1 mg/dL (1.8-2.4)
[2016-04-08] MEDS: CALCIUM ACETATE 667 MG CAPSULE (FP) PO SCH (08:14)
[2016-04-08] MEDS ORDERED: FUROSEMIDE 40 MG TABLET (FP) PO SCH (10:00)
[2016-04-08] MEDS: DULoxetine HCL 30 MG CAPSULE.DR (FP) PO SCH (10:07)
[2016-04-08] MEDS: PANTOPRAZOLE SODIUM 100 ML IVPB SCH ×2 (10:08→10:18)
[2016-04-08] MEDS: POLYETHYLENE GLYCOL 3350 119 GM BTL PO SCH (10:08)
[2016-04-08] MEDS: predniSONE 20 MG TABLET (UD) PO SCH (10:08)
[2016-04-08] MEDS: ASPIRIN COATED 81 MG TABLET.EC PO SCH (10:08)
[2016-04-08] MEDS: amLODIPine BESYLATE 10 MG TABLET (FP) PO SCH (10:08)
[2016-04-08] MEDS: DOCUSATE SODIUM 100 MG CAPSULE (FP) PO SCH ×2 (10:09→21:41)
--- NOTE | 2016-04-08 11:02 | PN ---
Progress Note (short form) - Note Progress Note: Renal Follow up for KARLOS Pt seen and examined at the bedside no complaints denies sob Vital Signs Temperature 97.7 F 04/08/16 05:30 Pulse Rate 80 04/08/16 10:47 Respiratory Rate 20 04/08/16 05:30 Blood Pressure 129/74 04/08/16 05:30 O2 Sat by Pulse Oximetry (%) 94 L 04/08/16 10:47 Intake & Output 04/05/16 04/06/16 04/07/16 04/08/16 23:59 23:59 23:59 23:59 Intake Total 320 300 200 Output Total 2800 3200 2450 275 Balance -2480 -2900 -2250 -275 Weight 241 lb 11.2 oz Gen: NAD CVS: RRR No M/R Lungs: dec BS throughout the lung rey Abd: Soft NT + Mild distension Ext: 1+ edema CBC, BMP 04/08/16 05:50 04/08/16 05:50 Current Medications Acetaminophen (Tylenol -) 650 mg PO Q6H PRN PRN Reason: FEVER OR PAIN Albuterol Sulfate (Ventolin 0.042trength) -) 1 amp NEB Q6H PRN PRN Reason: SHORT OF BREATH/WHEEZING Last Admin: 04/08/16 02:57 Dose: 1 amp Albuterol/Ipratropium (Duoneb -) 1 amp NEB QIDR [facility] Last Admin: 04/08/16 11:00 Dose: 1 amp Amlodipine Besylate (Norvasc -) 10 mg PO DAILY [facility] Last Admin: 04/08/16 10:08 Dose: 10 mg Aspirin (Ecotrin -) 81 mg PO DAILY [facility] Last Admin: 04/08/16 10:08 Dose: 81 mg Calcium Acetate (Phoslo -) 1,334 mg PO TIDCM [facility] Last Admin: 04/08/16 08:14 Dose: 1,334 mg Docusate Sodium (Colace -) 100 mg PO BID [facility] Last Admin: 04/08/16 10:09 Dose: Not Given Duloxetine HCl (Cymbalta -) 30 mg PO DAILY [facility] Last Admin: 04/08/16 10:07 Dose: 30 mg Epoetin Keith (Procrit -) 20,000 unit SQ MoWeFr@1000 [facility] Last Admin: 04/07/16 12:11 Dose: 20,000 unit Furosemide (Lasix -) 40 mg PO DAILY [facility] Last Admin: 04/08/16 10:07 Dose: 40 mg Heparin Sodium (Porcine) (Heparin -) 5,000 unit SQ TID [facility] Last Admin: 04/08/16 06:41 Dose: Not Given Pantoprazole Sodium (Protonix 40mg Ivpb (Pre-Docked)) 100 mls @ 200 mls/hr IVPB DAILY [facility] Last Admin: 04/08/16 10:18 Dose: Not Given Polyethylene Glycol (Miralax (For Daily Use) -) 17 gm PO DAILY [facility] Last Admin: 04/08/16 10:08 Dose: Not Given Prednisone (Deltasone -) 40 mg PO DAILY [facility] Last Admin: 04/08/16 10:08 Dose: 40 mg Sodium Chloride ([place] Nasal [place] -) 2 spray NS Q12H PRN PRN Reason: NASAL CONGESTION Zinc Oxide/Panthenol/Vitamin E (Balmex Cream -) 1 applic TP ASDIR PRN PRN Reason: HYGEINE A/P 75 year old Gentleman with PMhx of CKD Stage 3 (baseline Cr 1.9), Hx of Nephrolithiasis, Hypertension, COPD, CHF, PVD, Chronic LE lymph edema who was sent into the ED from wound care for increased lethargy and decreased urination for several days with KARLOS with BUN/Cr of 115/7.2 and K of 6.5 #Acute on Chronic Renal failure with volume overload Renal function improving Continue Oral diuretics, Titrate to achieve negative balance Trend daily weights no indication for further [employer] #MRSA Bactermia from dialysis catheter infection Repeat blood cultures from 04/02 w/o growth Continue Vanco dosed by levels - todays level high (hold dose) ID following YIMI 03/30 w/o Veg #Anemia Continue Procrit TIW #Hyperphosphatemia - now improved hold Phoslo trend zaris Melvin Johnson DO
--- NOTE | 2016-04-08 11:28 | PN ---
Physical Exam: SUBJECTIVE: Patient seen and examined Pt is awake, alert and oriented Pt is in a pleasant mood today, he said he is feeling well Pt is still on venti-mask 40% Denies shortness of breath, no chest pain or palpitation, no fever, chills, no n /v OBJECTIVE: Vital Signs Period Temp Pulse Resp BP Sys/[place] Pulse Ox Last 24 Hr 97.7 F-98.1 F 79-83 20-20 122-150/58-79 94-96 ENERAL: The patient is awake, alert oriented, in no distress. HEAD: Normal with no signs of trauma. EYES: PERRL, extraocular movements intact, sclera anicteric, conjunctiva clear. No ptosis. ENT: Ears normal, nares patent, oropharynx clear without exudates, dry mucous membranes. NECK: Trachea midline, full range of motion, supple. LUNGS: scattered ronchi, b/l crackles in lung bases HEART: tachycardic, Regular rate and rhythm, S1, S2 without murmur, rub or gallop. ABDOMEN: Soft, nontender, nondistended, normoactive bowel sounds, no guarding, no rebound, no hepatosplenomegaly, no masses. EXTREMITIES: 2+ pulses, warm, well-perfused. b/l lower ext edema 1+ with wrinkle skin, lower ext 2+ pulses NEUROLOGICAL: gait not observed. Strength 5/5 in all ext PSYCH: anxious mood, normal affect. SKIN: Warm, dry, wrinkled skin in b/l lower ext, edema 2+ b/l lower ext. Laboratory Results - last 24 hr 04/08/16 04/08/16 05:50 05:50 WBC 13.5 H RBC 2.97 L Hgb 7.9 L Hct 25.8 L MCV 86.8 MCHC 30.5 L RDW 21.8 H Plt Count 388 MPV 7.7 Sodium 144 Potassium 4.6 Chloride 103 Carbon Dioxide 35 H Anion Gap 6 L BUN 36 H Creatinine 1.8 H Random Glucose 80 Calcium 8.2 L Magnesium 2.1 Random Vancomycin 23.229 Active Medications Generic Name Dose Route Start Last Admin Trade Name Freq PRN Reason Stop Dose Admin Acetaminophen 650 mg 04/03/16 20:06 Tylenol - PO Q6H PRN FEVER OR PAIN Albuterol Sulfate 1 amp 04/03/16 20:06 04/08/16 02:57 Ventolin 0.042trength) - NEB 1 amp Q6H PRN Administration SHORT OF BREATH/WHEEZING Albuterol/Ipratropium 1 amp 04/04/16 00:00 04/08/16 11:00 Duoneb - NEB 1 amp QIDR LESLEE Administration Amlodipine Besylate 10 mg 04/04/16 10:00 04/08/16 10:08 Norvasc - PO 10 mg DAILY LESLEE Administration Aspirin 81 mg 04/04/16 10:00 04/08/16 10:08 Ecotrin - PO 81 mg DAILY LESLEE Administration Docusate Sodium 100 mg 04/03/16 22:00 04/08/16 10:09 Colace - PO Not Given BID LESLEE Duloxetine HCl 30 mg 04/08/16 10:00 04/08/16 10:07 Cymbalta - PO 30 mg DAILY LESLEE Administration Epoetin Keith 20,000 unit 04/05/16 10:00 04/07/16 12:11 Procrit - SQ 20,000 unit MoWeFr@1000 LESLEE Administration Furosemide 40 mg 04/08/16 10:00 04/08/16 10:07 Lasix - PO 40 mg DAILY LESLEE Administration Heparin Sodium (Porcine) 5,000 unit 04/03/16 22:00 04/08/16 06:41 Heparin - SQ Not Given TID [facility] Pantoprazole Sodium 40 mg 04/08/16 11:15 Protonix - PO DAILY [facility] Polyethylene Glycol 17 gm 04/04/16 10:00 04/08/16 10:08 Miralax (For Daily Use) - PO Not Given DAILY [facility] Prednisone 40 mg 04/04/16 10:00 04/08/16 10:08 Deltasone - PO 40 mg DAILY [facility] Administration Sodium Chloride 2 spray 04/03/16 20:06 [place] Nas[place] - NS Q12H PRN NASAL CONGESTION Zinc Oxide/Panthenol/Vitamin E 1 applic 04/03/16 20:06 Balmex Cream - TP ASDIR PRN HYGEINE CBC, BMP 04/08/16 05:50 04/08/16 05:50 Microbiology 04/04/16 21:00 Chest Gram Stain - Final 04/04/16 21:00 Chest Wound Culture - Final Mr S Aureus Staphylococcus Coagulase Neg 04/02/16 05:35 Blood - Peripheral Venous Blood Culture - Final NO GROWTH AFTER 5 DAYS INCUBATION 04/02/16 05:35 Blood - Peripheral Venous Blood Culture - Final NO GROWTH AFTER 5 DAYS INCUBATION 03/31/16 05:27 Blood - Peripheral Venous Blood Culture - Final Mr Sutton Aureus CXR 04/04/16: A single view the chest again reveals a widened mediastinum with congestive changes, pleural fluid and possible basilar infiltrates and/or atelectasis. The patient is rotated to the left. CXR 04/03/16 Since 04/02/2016 at 0731 hours again noted is the large heart, unfolded aorta, congestive changes, widened mediastinum and pleural fluid. Since the prior study there is no significant change. ASSESSMENT/PLAN: 75 year old male with pmh of COPD, PVD, Chronic lower ext lymphadema, CAD with stent, CHF, CKD with baseline creatinine of 1.9, nephrolithiasis presented to the ED with complaint of shortness of breath and cellulitis, patient was fount to have acute hypercapneic respiratory failure and acute renal failure. on 03/28 pt started developing fever, chills and rigors, tachycardia, was treated with vancomycin, clindamycin and atreonam. On 03/29 further developed, pt was weak, sleepy, with fever, tachycardia, tachypnea and hypotension. Severe Sepsis from dialysis access r/o endocarditis blood culture, MRSA from permacath, peripheral draw from 03/28 to 03/31/16 Pt is being treated with Vancomycin blood culture on 04/02/16 negative urine culture, negative Dr Armijo consulted Vanco level 23 Hold Vanco Dose for today repeat in am Echocardiogram no Endocarditis lower ext erythema almost resolved. Acute hypercapneic and hypoxic respiratory failure with respitatory acidosis rt to COPD exacerbation and diastolic heart failure and pleural effusion and severe Sepsis Pt was intubated 03/29/16 in ICU, Now is extubated on 03/30/16 on venti-mask 40 % titrate down FiO2 On prednisone 30mg Continue bronchodilators Dialysis per renal Stable congestion on CXR negative fluid balance yesterday 2.9 Liter On Lasix 40mg po QD, will increase to 60mg qd Permacath removed, was the source for the MRSA bacteremia s/p Thoracentesis 03/21/16 and 03/07/16 Acute on Chronic kidney Injury Continue to monitor BUN and Cr Monitor intake and output Continue Phoslo Continue Calcitriol Dialysis per renal improving creatinine Normocytic anemia likely due to chronic disease and renal disease Continue to monitor CBC daily Current Hgb 7.9 PRN transfusion if Hbg less than 7 of if rapid drop and massive bleeding fecal occult blood positive, pt to follow up with GI once stable Thrombocytopenia (resolved) Hypertension Currently controlled on Norvasc Coronary artery disease s/p stenting on 03/2015 pt is on aspirin Po Constipation Pt is on Colace 100mg Po BID Pt is on miralax daily FEN Fluid: none Electrolytes: continue to monitor Nutrition: Diabetic low sodium diet Dvt prophylaxis: On heparin SQ Disposition: DC planning to [facility] Visit type - Emergency Visit Emergency Visit: Yes ED Registration Date: 02/18/16 Care time: The patient presented to the Emergency Department on the above date and was hospitalized for further evaluation of their emergent condition. - New Patient This patient is new to me today: No - Critical Care Critical Care patient: No
[2016-04-08] MEDS ORDERED: predniSONE 20 MG TABLET (UD) PO SCH (11:29)
[2016-04-08] MEDS ORDERED: PANTOPRAZOLE 40 MG TABLET (FP) ONE (11:37)
[2016-04-08] MEDS: PANTOPRAZOLE 40 MG TABLET (FP) PO SCH (11:43)
--- NOTE | 2016-04-08 12:35 | PN ---
Progress Note, Physician History of Present Illness: seen and examined today in nad. no overnight events. no new complaints. states he feels well enough to be discharged. - Current Medication List Current Medications: Active Medications Acetaminophen (Tylenol -) 650 mg PO Q6H PRN PRN Reason: FEVER OR PAIN Albuterol Sulfate (Ventolin 0.042trength) -) 1 amp NEB Q6H PRN PRN Reason: SHORT OF BREATH/WHEEZING Last Admin: 04/08/16 02:57 Dose: 1 amp Albuterol/Ipratropium (Duoneb -) 1 amp NEB QIDR [facility] Last Admin: 04/08/16 11:00 Dose: 1 amp Amlodipine Besylate (Norvasc -) 10 mg PO DAILY [facility] Last Admin: 04/08/16 10:08 Dose: 10 mg Aspirin (Ecotrin -) 81 mg PO DAILY [facility] Last Admin: 04/08/16 10:08 Dose: 81 mg Docusate Sodium (Colace -) 100 mg PO BID [facility] Last Admin: 04/08/16 10:09 Dose: Not Given Duloxetine HCl (Cymbalta -) 30 mg PO DAILY [facility] Last Admin: 04/08/16 10:07 Dose: 30 mg Epoetin Keith (Procrit -) 20,000 unit SQ MoWeFr@1000 [facility] Last Admin: 04/07/16 12:11 Dose: 20,000 unit Furosemide (Lasix -) 40 mg PO DAILY [facility] Last Admin: 04/08/16 10:07 Dose: 40 mg Heparin Sodium (Porcine) (Heparin -) 5,000 unit SQ TID [facility] Last Admin: 04/08/16 06:41 Dose: Not Given Pantoprazole Sodium (Protonix -) 40 mg PO DAILY [facility] Last Admin: 04/08/16 11:43 Dose: 40 mg Polyethylene Glycol (Miralax (For Daily Use) -) 17 gm PO DAILY [facility] Last Admin: 04/08/16 10:08 Dose: Not Given Prednisone (Deltasone -) 30 mg PO DAILY [facility] Sodium Chloride ([place] Nasal [place] -) 2 spray NS Q12H PRN PRN Reason: NASAL CONGESTION Zinc Oxide/Panthenol/Vitamin E (Balmex Cream -) 1 applic TP ASDIR PRN PRN Reason: HYGEINE - Objective Vital Signs: Vital Signs Temperature 97.7 F 04/08/16 05:30 Pulse Rate 80 12/31/16 10:47 Respiratory Rate 20 04/08/16 05:30 Blood Pressure 129/74 04/08/16 05:30 O2 Sat by Pulse Oximetry (%) 94 L 04/08/16 10:47 Constitutional: Yes: No Distress, Calm, Obese Eyes: Yes: Conjunctiva Clear, EOM Intact, PERRL HENT: Yes: WNL, Atraumatic, Normocephalic Neck: Yes: WNL, Supple, Trachea Midline Cardiovascular: Yes: Regular Rate and Rhythm, S1, S2. No: Bradycardia, Tachycardia, Pulse Irregular, Bruit, JVD, Gallop, Murmur, Rub, S3, S4, Varicosities Respiratory: Yes: Regular, Diminished, Rales. No: Rhonchi, Wheezes Gastrointestinal: Yes: WNL, Normal Bowel Sounds, Soft. No: Distention, Tenderness Musculoskeletal: Yes: Muscle Weakness Edema: Yes Edema: LLE: 1+, RLE: 1+ Peripheral Pulses WNL: Yes Peripheral Pulses: Left Doralis Pedis: 2+, Right Dorsalis Pedis: 2+ Integumentary: Yes: Venous Stasis Changes. No: Erythema Neurological: Yes: WNL, Alert, Oriented, Cran Nerves II-XII Intact Psychiatric: Yes: Alert, Oriented Labs: CBC, BMP 04/08/16 05:50 04/08/16 05:50 INR, PTT INR 1.27 (0.82-1.09) H 03/30/16 05:20 Fibrinogen 547.0 mg/dL (238-498) H 03/17/16 06:30 - ....Imaging Chest X-ray: Report Reviewed, Image Reviewed EKG: Report Reviewed, Image Reviewed Other: Report Reviewed, Image Reviewed Assessment/Plan IMP: Acute on chronic hypercarbic respiratory failure Chronic COPD Sepsis, gram + Bacteremia, infected HD catheter- removed ESRD CAD REC: Resp. failure: required intubation during admission -now extubated, s/p thoracentesis for pleural effusions -diuresing well now and has not required further HD -bun/creat trended down -volume status has significantly improved -pt was changed to Lasix 40mg po daily starting today, would closely monitor, may need to increase dose to maintain negative fluid balance -bipap as needed -steroids as per pulm reccs Sepsis: -gram + bacteremia; infected HD catheter removed. -Abx as per ID -TTE showed no evidence of endocarditis CAD: s/p PCI with stents this year -thrombocytopenia resolved -cont ASA 81mg daily
--- NOTE | 2016-04-08 13:24 | PN ---
Teaching Attending Note Name of Resident: Zachery Blum ATTENDING PHYSICIAN STATEMENT I saw and evaluated the patient. I reviewed the resident's note and discussed the case with the resident. I agree with the resident's findings and plan as documented. SUBJECTIVE: Comfortable with no acute distress. OBJECTIVE: Vital Signs Temperature 97.8 F 04/08/16 09:00 Pulse Rate 80 04/08/16 10:47 Respiratory Rate 20 04/08/16 09:00 Blood Pressure 130/80 04/08/16 09:00 O2 Sat by Pulse Oximetry (%) 94 L 04/08/16 10:47 GENERAL: Patient is AA0x3, HEAD: Normal with no signs of trauma. EYES: PERRL, extraocular movements intact, sclera anicteric, conjunctiva clear. ENT: Ears normal, oropharynx clear without exudates, moist mucous membranes. NECK: Trachea midline, full range of motion, supple. LUNGS: positive for wheezing ,no accessory muscle use, extubated on NC HEART: Regular rate and rhythm, S1, S2 positive, MEERA 2/6 ABDOMEN: Soft, large abdomen ,obese, nontender, nondistended, normoactive bowel sounds, no guarding, no rebound. EXTREMITIES: 2+ pulses, warm, 1 plus edema b/l NEUROLOGICAL: CN 2-12 grossly intact . PSYCH:AAOx3 , Alert awake SKIN: bilat. lower ext. stasis dermatitis. CBCD WBC 13.5 K/mm3 (4.0-10.0) H 04/08/16 05:50 RBC 2.97 M/mm3 (4.00-5.60) L 04/08/16 05:50 Hgb 7.9 GM/dL (11.7-16.9) L 04/08/16 05:50 Hct 25.8 % (35.4-49) L 04/08/16 05:50 MCV 86.8 fl (80-96) 04/08/16 05:50 MCHC 30.5 g/dl (32.0-35.9) L 04/08/16 05:50 RDW 21.8 % (11.9-15.9) H 04/08/16 05:50 Plt Count 388 K/MM3 (134-434) 04/08/16 05:50 MPV 7.7 fl (7.5-11.1) 04/08/16 05:50 CMP Sodium 144 mmol/L (136-145) 04/08/16 05:50 Potassium 4.6 mmol/L (3.5-5.1) 04/08/16 05:50 Chloride 103 mmol/L (98-107) 04/08/16 05:50 Carbon Dioxide 35 mmol/L (21-32) H 04/08/16 05:50 Anion Gap 6 (8-16) L 04/08/16 05:50 BUN 36 mg/dL (7-18) H 04/08/16 05:50 Creatinine 1.8 mg/dL (0.7-1.3) H 04/08/16 05:50 Creat Clearance w eGFR 29.49 (>60) 04/04/16 05:00 Random Glucose 80 mg/dL (74-106) 04/08/16 05:50 Calcium 8.2 mg/dL (8.5-10.1) L 04/08/16 05:50 Total Bilirubin 0.4 mg/dL (0.2-1.0) 04/04/16 05:00 AST 21 U/L (15-37) 04/04/16 05:00 ALT 18 U/L (12-78) 04/04/16 05:00 Alkaline Phosphatase 107 U/L (45-117) 04/04/16 05:00 Total Protein 5.3 g/dl (6.4-8.2) L 04/04/16 05:00 Albumin 2.3 g/dl (3.4-5.0) L 04/04/16 05:00 CARDIAC ENZYMES Creatine Kinase 20 IU/L (39-308) L 03/29/16 07:37 Troponin I < 0.02 ng/ml (0.00-0.05) 03/29/16 07:37 Current Medications Generic Name Dose Route Start Last Admin Trade Name Freq PRN Reason Stop Dose Admin Acetaminophen 650 mg 04/03/16 20:06 Tylenol - PO Q6H PRN FEVER OR PAIN Albuterol Sulfate 1 amp 04/03/16 20:06 04/08/16 02:57 Ventolin 0.042trength) - NEB 1 amp Q6H PRN Administration SHORT OF BREATH/WHEEZING Albuterol/Ipratropium 1 amp 04/04/16 00:00 04/08/16 11:00 Duoneb - NEB 1 amp QIDR LESLEE Administration Amlodipine Besylate 10 mg 04/04/16 10:00 04/08/16 10:08 Norvasc - PO 10 mg DAILY L[facility]LEE Administration Aspirin 81 mg 04/04/16 10:00 04/08/16 10:08 Ecotrin - PO 81 mg DAILY L[facility]E Administration Docusate Sodium 100 mg 04/03/16 22:00 04/08/16 10:09 Colace - PO Not Given BID [facility] Duloxetine HCl 30 mg 04/08/16 10:00 04/08/16 10:07 Cymbalta - PO 30 mg DAILY [facility] Administration Epoetin Keith 20,000 unit 04/05/16 10:00 04/07/16 12:11 Procrit - SQ 20,000 unit MoWeFr@1000 [facility] Administration Furosemide 60 mg 04/09/16 10:00 Lasix - PO DAILY [facility] Heparin Sodium (Porcine) 5,000 unit 04/03/16 22:00 04/08/16 06:41 Heparin - SQ Not Given TID [facility] Pantoprazole Sodium 40 mg 04/08/16 11:15 04/08/16 11:43 Protonix - PO 40 mg DAILY [facility] Administration Polyethylene Glycol 17 gm 04/04/16 10:00 04/08/16 10:08 Miralax (For Daily Use) - PO Not Given DAILY [facility] Prednisone 30 mg 04/09/16 10:00 Deltasone - PO DAILY [facility] Sodium Chloride 2 spray 04/03/16 20:06 [place] Nasal [place] - NS Q12H PRN NASAL CONGESTION Zinc Oxide/Panthenol/Vitamin E 1 applic 04/03/16 20:06 Balmex Cream - TP ASDIR PRN HYGEINE Medication Instructions Recorded Acetaminophen W/ Codeine #3 1 tab PO Q6H PRN 02/18/16 [Tylenol # 3 -] Albuterol 0.083% Nebulizer Soni 1 amp NEB ASDIR PRN 02/18/16 [Ventolin 0.083% Nebulizer Soln -] Aspirin [Ecotrin] 81 mg PO DAILY 02/18/16 Duloxetine HCl 20 mg PO DAILY 02/18/16 Furosemide 20 mg PO HS 02/18/16 Furosemide 40 mg PO DAILY 02/18/16 Hydralazine HCl [Apresoline -] 50 mg PO HS 02/18/16 Prasugrel HCl [Effient] 10 mg PO DAILY 02/18/16 Prednisone 5 mg PO DAILY 02/18/16 Pregabalin [Lyrica] 25 mg PO DAILY 02/18/16 Microbiology 03/07/16 15:30 Pleural Fluid ALANA Preparation - Final 03/07/16 15:30 Pleural Fluid Fungal Culture - Final 04/04/16 21:00 Chest Gram Stain - Final 04/04/16 21:00 Chest Wound Culture - Final S Aureus Staphylococcus Coagulase Neg 04/02/16 05:35 Blood - Peripheral Venous Blood Culture - Final NO GROWTH AFTER 5 DAYS INCUBATION 04/02/16 05:35 Blood - Peripheral Venous Blood Culture - Final NO GROWTH AFTER 5 DAYS INCUBATION 03/31/16 05:27 Blood - Peripheral Venous Blood Culture - Final Mr S Aureus 03/29/16 17:30 Blood - Arterial Blood Culture - Final Presumptive Mrsa (Pbp2a Pos) 03/31/16 05:27 Blood - Peripheral Venous Blood Culture - Final Mr S Aureus 03/29/16 17:30 Blood - Arterial Blood Culture - Final Presumptive Mrsa (Pbp2a Pos) 03/29/16 10:10 Body Fluid - Other Gram Stain - Final 03/29/16 10:10 Body Fluid - Other Body Fluid Culture - Final Mr S Aureus 03/29/16 10:10 Body Fluid - Other Anaerobic Culture - Final NO ANAEROBES WERE ISOLATED 03/28/16 16:30 Blood - Peripheral Venous Blood Culture - Final Mr S Aureus 03/28/16 16:30 Blood - Peripheral Venous Blood Culture - Final Mr S Aureus 03/28/16 17:45 Blood - [place] Cath Blood Culture - Final Mr S Aureus 03/28/16 19:30 Urine - Urine Clean Catch Urine Culture - Final NO GROWTH OBTAINED 03/21/16 Unknown Pleural Fluid AFB Smear Concentration - Final 03/21/16 Unknown Pleural Fluid Mycobacterial Culture - Preliminary 03/21/16 12:30 Pleural Fluid Gram Stain - Final 03/21/16 12:30 Pleural Fluid Body Fluid Culture - Final NO GROWTH OF AEROBIC ORGANISMS AFTER 48 HOURS INCUBATION 03/21/16 12:30 Pleural Fluid Anaerobic Culture - Final NO ANAEROBES WERE ISOLATED 03/21/16 13:43 Pleural Fluid ALANA Preparation - Preliminary 03/21/16 13:43 Pleural Fluid Fungal Culture - Preliminary 03/16/16 18:40 Blood - Peripheral Venous Blood Culture - Final NO GROWTH AFTER 5 DAYS INCUBATION 03/16/16 18:40 Blood - Peripheral Venous Blood Culture - Final NO GROWTH AFTER 5 DAYS INCUBATION 03/13/16 18:30 Blood - Peripheral Venous Blood Culture - Final NO GROWTH AFTER 5 DAYS INCUBATION 03/13/16 18:30 Blood - Peripheral Venous Blood Culture - Final NO GROWTH AFTER 5 DAYS INCUBATION 03/08/16 10:15 Blood - Peripheral Venous Blood Culture - Final NO GROWTH AFTER 5 DAYS INCUBATION 03/08/16 10:15 Blood - Peripheral Venous Blood Culture - Final NO GROWTH AFTER 5 DAYS INCUBATION 03/07/16 15:30 Pleural Fluid Gram Stain - Final 03/07/16 15:30 Pleural Fluid Body Fluid Culture - Final NO GROWTH OF AEROBIC ORGANISMS AFTER 48 HOURS INCUBATION 03/07/16 15:30 Pleural Fluid Anaerobic Culture - Final NO ANAEROBES WERE ISOLATED 03/07/16 15:30 Pleural Fluid AFB Smear Concentration - Final 03/07/16 15:30 Pleural Fluid Mycobacterial Culture - Preliminary 02/29/16 17:40 Nasopharyngeal Swab Respiratory Virus Panel - Final 02/25/16 17:30 Blood - Peripheral Venous Blood Culture - Final NO GROWTH AFTER 5 DAYS INCUBATION 02/25/16 17:30 Blood - Peripheral Venous Blood Culture - Final NO GROWTH AFTER 5 DAYS INCUBATION 02/28/16 17:40 Nasopharyngeal Swab Influenza Types A,B Antigen (TONI) - Final 02/28/16 17:40 Nasopharyngeal Swab - Final 02/26/16 06:45 Urine - Urine Clean Catch Urine Culture - Final NO GROWTH OBTAINED 02/18/16 19:15 Blood - Peripheral Venous Blood Culture - Final NO GROWTH AFTER 5 DAYS INCUBATION 02/18/16 19:15 Blood - Peripheral Venous Blood Culture - Final NO GROWTH AFTER 5 DAYS INCUBATION 02/18/16 18:10 Urine - Urine Clean Catch Urine Culture - Final NO GROWTH OBTAINED ASSESSMENT AND PLAN: 75 year-old man with a PMHx of HTN, PVD, COPD, CKD (baseline Cr 1.8), nephrolithiasis, D CHF , CAD s/p stenting in 03/23 and chronic LE lymphedema. presented with SOB and was found to have acute hypercapnic respiratory failure with acute renal failure . # gm positive bacteremia ; mrsa bacteremia no Vancomycin for today since level is 23 today # s/p severe Sepsis from right sided permacath positive for MRSA s/p removal , MRSA bacteremia, echo is negative for endocarditis, will discuss with cardiology for possible need of YIMI, will check with hand i tube bender . On Vancomycin and Azactam IV continue , urine culture negative, Dr Szymanski ID on the case. #s/p Acute on chronic hypercapnic respiratory failure s/p Intubation/ Extubation due to COPD exacerbation on VM mask now , Bipap PRN Continue SoluMedrol, DuoNeb, albuterol as needed , s/p thoracentesis 03/07 and 03/21 , lasix IV prn. # Acute Diastolic heart failure and pleural effusions s/p R and L thoracocentesis ;off steroids. Lasix prn # ESRD on HD further management per nephro on cacitriol and phoslo; patient has no access for HD at this time, But his Kidney function is improving, might not need further dialysis # Cellultis of LE : improved on Antibiotics continue on vancomycin # Anemia secondary to chronic kidney disease s/p transfusion. cont to monitor. Transfuse PRN Continue Procrit, PhosLo; Hemoglobinis 8.1 today transfuse as needed, follow the level for am # s/p Thrombocytopenia: improved # HTN: cont norvasc # CAD : s/p Stenting 03/23 on [place]. #Obesity with BMI 37.4 #Constipation Continue Colace, Miralax DVT Px; heparin
--- NOTE | 2016-04-08 15:29 | PN ---
Progress Note, Physician History of Present Illness: better no issues - Current Medication List Current Medications: Active Medications Acetaminophen (Tylenol -) 650 mg PO Q6H PRN PRN Reason: FEVER OR PAIN Albuterol Sulfate (Ventolin 0.042trength) -) 1 amp NEB Q6H PRN PRN Reason: SHORT OF BREATH/WHEEZING Last Admin: 04/08/16 02:57 Dose: 1 amp Albuterol/Ipratropium (Duoneb -) 1 amp NEB QIDR [facility] Last Admin: 04/08/16 11:00 Dose: 1 amp Amlodipine Besylate (Norvasc -) 10 mg PO DAILY [facility] Last Admin: 04/08/16 10:08 Dose: 10 mg Aspirin (Ecotrin -) 81 mg PO DAILY [facility] Last Admin: 04/08/16 10:08 Dose: 81 mg Docusate Sodium (Colace -) 100 mg PO BID [facility] Last Admin: 04/08/16 10:09 Dose: Not Given Duloxetine HCl (Cymbalta -) 30 mg PO DAILY [facility] Last Admin: 04/08/16 10:07 Dose: 30 mg Epoetin Keith (Procrit -) 20,000 unit SQ MoWeFr@1000 [facility] Last Admin: 04/07/16 12:11 Dose: 20,000 unit Furosemide (Lasix -) 60 mg PO DAILY [facility] Heparin Sodium (Porcine) (Heparin -) 5,000 unit SQ TID [facility] Last Admin: 04/08/16 14:10 Dose: Not Given Pantoprazole Sodium (Protonix -) 40 mg PO DAILY [facility] Last Admin: 04/08/16 11:43 Dose: 40 mg Polyethylene Glycol (Miralax (For Daily Use) -) 17 gm PO DAILY [facility] Last Admin: 04/08/16 10:08 Dose: Not Given Prednisone (Deltasone -) 30 mg PO DAILY [facility] Sodium Chloride ([place] Nasal [place] -) 2 spray NS Q12H PRN PRN Reason: NASAL CONGESTION Zinc Oxide/Panthenol/Vitamin E (Balmex Cream -) 1 applic TP ASDIR PRN PRN Reason: HYGEINE - Objective Vital Signs: Vital Signs Temperature 97.8 F 04/08/16 09:00 Pulse Rate 80 04/08/16 10:47 Respiratory Rate 20 04/08/16 09:00 Blood Pressure 130/80 04/08/16 09:00 O2 Sat by Pulse Oximetry (%) 94 L 04/08/16 10:47 Constitutional: Yes: Calm Eyes: Yes: Conjunctiva Clear Cardiovascular: Yes: Regular Rate and Rhythm Respiratory: Yes: On Nasal O2, Poor Air Entry Gastrointestinal: Yes: Normal Bowel Sounds, Soft Musculoskeletal: Yes: Other Extremities: Yes: Other Neurological: Yes: Alert, Oriented Psychiatric: Yes: Alert Labs: CBC, BMP 04/08/16 05:50 04/08/16 05:50 INR, PTT INR 1.27 (0.82-1.09) H 03/30/16 05:20 Fibrinogen 547.0 mg/dL (238-498) H 03/17/16 06:30 Assessment/Plan 75 year-old man with a PMH of HTN, PVD, COPD, CKD (baseline Cr 1.9), nephrolithiasis, and chronic LE lymphedema. Admitted in acute renal failure. Acute on chronic renal failure Hyperkalemia Sepsis s Hypertension Peripheral vascular disease Hypercarbic respiratory failure COPD bilateral cellulitis of the legs rsv lung infection pleural effusion anemia fevers gm positive bacteremia mrsa bacteremia plan please do not give any vanco dose today repeat level of vanco tomorrow
[2016-04-09] MEDS: ALBUTEROL SO4 2.5/IPRATROPIUM 0.5 INH SOL 3 ML VIAL.NEB. NEB SCH ×5 (00:05→23:47)
[2016-04-09] MEDS ORDERED: ALBUTEROL SO4 0.083% IH SOL 2.5 MG/3 ML VIAL.NEB. NEB ONE (02:53)
[2016-04-09] MEDS: ALBUTEROL SO4 0.042% IH SOL 1.25 MG/3 ML VIAL.NEB NEB PRN ×4 (02:55→21:27)
[2016-04-09] MEDS: HEPARIN NA (PORCINE) 5,000 UNITS/ML 1ML VIAL SQ SCH ×3 (06:19→21:30)
[2016-04-09 07:45] LABS: MCH 26.1 pg (25.7-33.7); MCHC 30.1 g/dl (32.0-35.9); MEAN CELL VOLUME 86.8 fl (80-96); MEAN PLT VOLUME 7.8 fl (7.5-11.1); PLATELET COUNT 386 K/MM3 (134-434); RDW 22.4 % (11.9-15.9); WHITE BLOOD COUNT 16.3 K/mm3 (4.0-10.0)
[2016-04-09 08:21] LABS: CREATININE 1.7 mg/dL (0.7-1.3); MAGNESIUM 2.2 mg/dL (1.8-2.4); PHOSPHOROUS 3.5 mg/dL (2.5-4.9)
[2016-04-09] MEDS ORDERED: PT OWN MED DRAWER 7, Y5N ONE ×2 (08:42→15:29)
[2016-04-09 09:44] LABS: METAMYELOCYTE 1 % (0-2); PLATELET ESTIMATE ADEQUATE (NORMAL); POLYCHROMASIA 1+
[2016-04-09 09:45] LABS: ANISOCYTOSIS 3+; HYPOCHROMIA 2+; MICROCYTOSIS 2+; OVALOCYTES FEW
[2016-04-09] MEDS: DULoxetine HCL 30 MG CAPSULE.DR (FP) PO SCH (09:54)
[2016-04-09] MEDS: predniSONE 20 MG TABLET (UD) PO SCH (09:54)
[2016-04-09] MEDS: DOCUSATE SODIUM 100 MG CAPSULE (FP) PO SCH ×2 (09:54→21:29)
[2016-04-09] MEDS: ASPIRIN COATED 81 MG TABLET.EC PO SCH (09:54)
[2016-04-09] MEDS: amLODIPine BESYLATE 10 MG TABLET (FP) PO SCH (09:55)
[2016-04-09] MEDS: PANTOPRAZOLE 40 MG TABLET (FP) PO SCH (09:55)
[2016-04-09] MEDS: POLYETHYLENE GLYCOL 3350 119 GM BTL PO SCH (09:55)
[2016-04-09] MEDS ORDERED: FUROSEMIDE 40 MG TABLET (FP) PO SCH (10:00)
--- NOTE | 2016-04-09 10:29 | PN ---
Progress Note (short form) - Note Progress Note: Vital Signs Patient is having shortness of breath but refusing Bipap Temperature 97.8 F 04/09/16 06:00 Pulse Rate 93 H 04/09/16 08:47 Respiratory Rate 22 04/09/16 06:00 Blood Pressure 125/64 04/09/16 06:00 O2 Sat by Pulse Oximetry (%) 95 04/09/16 08:47 GENERAL: Patient is AA0x3, HEAD: Normal with no signs of trauma. EYES: PERRL, extraocular movements intact, sclera anicteric, conjunctiva clear. ENT: Ears normal, oropharynx clear without exudates, moist mucous membranes. NECK: Trachea midline, full range of motion, supple. LUNGS: positive for wheezing ,mild accessory muscle use, on VM HEART: Regular rate and rhythm, S1, S2 positive, MEERA 2/6 ABDOMEN: Soft, large abdomen ,obese, nontender, nondistended, normoactive bowel sounds, no guarding, no rebound. EXTREMITIES: 2+ pulses, warm, 2 plus edema b/l NEUROLOGICAL: CN 2-12 grossly intact . PSYCH:AAOx3 , Alert awake SKIN: bilat. lower ext. stasis dermatitis. CBCD WBC 16.3 K/mm3 (4.0-10.0) H 04/09/16 06:00 RBC 3.15 M/mm3 (4.00-5.60) L 04/09/16 06:00 Hgb 8.2 GM/dL (11.7-16.9) L 04/09/16 06:00 Hct 27.4 % (35.4-49) L 04/09/16 06:00 MCV 86.8 fl (80-96) 04/09/16 06:00 MCHC 30.1 g/dl (32.0-35.9) L 04/09/16 06:00 RDW 22.4 % (11.9-15.9) H 04/09/16 06:00 Plt Count 386 K/MM3 (134-434) 04/09/16 06:00 MPV 7.8 fl (7.5-11.1) 04/09/16 06:00 CMP Sodium 144 mmol/L (136-145) 04/09/16 06:00 Potassium 4.3 mmol/L (3.5-5.1) 04/09/16 06:00 Chloride 104 mmol/L (98-107) 04/09/16 06:00 Carbon Dioxide 33 mmol/L (21-32) H 04/09/16 06:00 Anion Gap 7 (8-16) L 04/09/16 06:00 BUN 32 mg/dL (7-18) H 04/09/16 06:00 Creatinine 1.7 mg/dL (0.7-1.3) H 04/09/16 06:00 Creat Clearance w eGFR 29.49 (>60) 04/04/16 05:00 Random Glucose 80 mg/dL (74-106) 04/09/16 06:00 Calcium 8.0 mg/dL (8.5-10.1) L 04/09/16 06:00 Total Bilirubin 0.4 mg/dL (0.2-1.0) 04/04/16 05:00 AST 21 U/L (15-37) 04/04/16 05:00 ALT 18 U/L (12-78) 04/04/16 05:00 Alkaline Phosphatase 107 U/L (45-117) 04/04/16 05:00 Total Protein 5.3 g/dl (6.4-8.2) L 04/04/16 05:00 Albumin 2.3 g/dl (3.4-5.0) L 04/04/16 05:00 CARDIAC ENZYMES Creatine Kinase 20 IU/L (39-308) L 03/29/16 07:37 Troponin I < 0.02 ng/ml (0.00-0.05) 03/29/16 07:37 Current Medications Generic Name Dose Route Start Last Admin Trade Name Freq PRN Reason Stop Dose Admin Acetaminophen 650 mg 04/03/16 20:06 Tylenol - PO Q6H PRN FEVER OR PAIN Albuterol Sulfate 1 amp 04/03/16 20:06 04/09/16 08:47 Ventolin 0.042trength) - NEB 1 amp Q6H PRN Administration SHORT OF BREATH/WHEEZING Albuterol/Ipratropium 1 amp 04/04/16 00:00 04/09/16 07:26 Duoneb - NEB 1 amp QIDR LESLEE Administration Amlodipine Besylate 10 mg 04/04/16 10:00 04/09/16 09:55 Norvasc - PO 10 mg DAILY LESLEE Administration Aspirin 81 mg 04/04/16 10:00 04/09/16 09:54 Ecotrin - PO 81 mg DAILY LESLEE Administration Docusate Sodium 100 mg 04/03/16 22:00 04/09/16 09:54 Colace - PO Not Given BID LESLEE Duloxetine HCl 30 mg 04/08/16 10:00 04/09/16 09:54 Cymbalta - PO 30 mg DAILY LESLEE Administration Epoetin Keith 20,000 unit 04/05/16 10:00 04/07/16 12:11 Procrit - SQ 20,000 unit MoWeFr@1000 LESLEE Administration Furosemide 60 mg 04/09/16 10:00 04/09/16 09:54 Lasix - PO 60 mg DAILY LESLEE Administration Heparin Sodium (Porcine) 5,000 unit 04/03/16 22:00 04/09/16 06:19 Heparin - SQ Not Given TID LESLEE Pantoprazole Sodium 40 mg 04/08/16 11:15 04/09/16 09:55 Protonix - PO 40 mg DAILY LESLEE Administration Polyethylene Glycol 17 gm 04/04/16 10:00 04/09/16 09:55 Miralax (For Daily Use) - PO Not Given DAILY LESLEE Prednisone 30 mg 04/09/16 10:00 04/09/16 09:54 Deltasone - PO 30 mg DAILY LESLEE Administration Sodium Chloride 2 spray 04/03/16 20:06 [place] Nasal [place] - NS Q12H PRN NASAL CONGESTION Zinc Oxide/Panthenol/Vitamin E 1 applic 04/03/16 20:06 Balmex Cream - TP ASDIR PRN HYGEINE ASSESSMENT AND PLAN: 75 year-old man with a PMHx of HTN, PVD, COPD, CKD (baseline Cr 1.8), nephrolithiasis, D CHF , CAD s/p stenting in 03/23 and chronic LE lymphedema. presented with SOB and was found to have acute hypercapnic respiratory failure with acute renal failure . # Acute shortness of breath refusing Bibap , On VM, increased dose of lasix # Acute Leucocytosis will continue Azactam as per ID will repeat levels in am # gm positive bacteremia ; mrsa bacteremia no Vancomycin for today since level is 23 today # s/p severe Sepsis from right sided permacath positive for MRSA s/p removal , MRSA bacteremia, echo is negative for endocarditis, will discuss with cardiology for possible need of YIMI, will check with behavioral health rn . On Vancomycin and Azactam IV continue , urine culture negative, Dr Szymanski ID on the case. #s/p Acute on chronic hypercapnic respiratory failure s/p Intubation/ Extubation due to COPD exacerbation on VM mask now , Bipap PRN Continue SoluMedrol, DuoNeb, albuterol as needed , s/p thoracentesis 03/07 and 03/21 , lasix IV prn. # Acute Diastolic heart failure and pleural effusions s/p R and L thoracocentesis ;off steroids. Lasix prn # ESRD on HD further management per nephro on cacitriol and phoslo; patient has no access for HD at this time, But his Kidney function is improving, might not need further dialysis # Cellultis of LE : improved on Antibiotics, vancomycin on hold since random level is 23 # Anemia secondary to chronic kidney disease s/p transfusion. cont to monitor. Transfuse PRN Continue Procrit, PhosLo; Hemoglobinis 8.1 today transfuse as needed, follow the level for am # s/p Thrombocytopenia: improved # HTN: cont norvasc # CAD : s/p Stenting 03/23 on Asa. #Obesity with BMI 37.4 #Constipation Continue Colace, Miralax DVT Px; heparin Visit type - Emergency Visit Emergency Visit: Yes ED Registration Date: 02/18/16 Care time: The patient presented to the Emergency Department on the above date and was hospitalized for further evaluation of their emergent condition. - New Patient This patient is new to me today: No - Critical Care Critical Care patient: No
--- NOTE | 2016-04-09 12:16 | PN ---
Progress Note, Physician History of Present Illness: seen and examined today in nad. no overnight events. no new complaints. - Current Medication List Current Medications: Active Medications Acetaminophen (Tylenol -) 650 mg PO Q6H PRN PRN Reason: FEVER OR PAIN Albuterol Sulfate (Ventolin 0.042trength) -) 1 amp NEB Q6H PRN PRN Reason: SHORT OF BREATH/WHEEZING Last Admin: 04/09/16 08:47 Dose: 1 amp Albuterol/Ipratropium (Duoneb -) 1 amp NEB QIDR [facility] Last Admin: 04/09/16 11:20 Dose: 1 amp Amlodipine Besylate (Norvasc -) 10 mg PO DAILY [facility] Last Admin: 04/09/16 09:55 Dose: 10 mg Aspirin (Ecotrin -) 81 mg PO DAILY [facility] Last Admin: 04/09/16 09:54 Dose: 81 mg Docusate Sodium (Colace -) 100 mg PO BID [facility] Last Admin: 04/09/16 09:54 Dose: Not Given Duloxetine HCl (Cymbalta -) 30 mg PO DAILY [facility] Last Admin: 04/09/16 09:54 Dose: 30 mg Epoetin Keith (Procrit -) 20,000 unit SQ MoWeFr@1000 [facility] Last Admin: 04/07/16 12:11 Dose: 20,000 unit Furosemide (Lasix -) 60 mg PO DAILY [facility] Last Admin: 04/09/16 09:54 Dose: 60 mg Heparin Sodium (Porcine) (Heparin -) 5,000 unit SQ TID [facility] Last Admin: 04/09/16 06:19 Dose: Not Given Pantoprazole Sodium (Protonix -) 40 mg PO DAILY [facility] Last Admin: 04/09/16 09:55 Dose: 40 mg Polyethylene Glycol (Miralax (For Daily Use) -) 17 gm PO DAILY [facility] Last Admin: 04/09/16 09:55 Dose: Not Given Prednisone (Deltasone -) 30 mg PO DAILY [facility] Last Admin: 04/09/16 09:54 Dose: 30 mg Sodium Chloride ([place] Nasal [place] -) 2 spray NS Q12H PRN PRN Reason: NASAL CONGESTION Zinc Oxide/Panthenol/Vitamin E (Balmex Cream -) 1 applic TP ASDIR PRN PRN Reason: HYGEINE - Objective Vital Signs: Vital Signs Temperature 97.8 F 04/09/16 06:00 Pulse Rate 93 H 04/09/16 08:47 Respiratory Rate 22 04/09/16 06:00 Blood Pressure 125/64 04/09/16 06:00 O2 Sat by Pulse Oximetry (%) 95 04/09/16 08:47 Constitutional: Yes: No Distress, Calm, Obese Eyes: Yes: WNL, Conjunctiva Clear, EOM Intact, PERRL HENT: Yes: WNL, Atraumatic, Normocephalic Neck: Yes: WNL, Supple, Trachea Midline Cardiovascular: Yes: Regular Rate and Rhythm, S1, S2. No: Bradycardia, Tachycardia, Pulse Irregular, Bruit, JVD, Gallop, Murmur, Rub, S3, S4, Varicosities Respiratory: Yes: Regular, Diminished, Rhonchi. No: Rales, Wheezes Gastrointestinal: Yes: WNL, Normal Bowel Sounds, Soft. No: Distention, Tenderness Musculoskeletal: Yes: WNL Extremities: Yes: Other (chronic venous stasis, lymphedema) Edema: Yes Edema: LLE: 1+, RLE: 1+ Peripheral Pulses WNL: Yes Peripheral Pulses: Left Doralis Pedis: 2+, Right Dorsalis Pedis: 2+ Integumentary: Yes: WNL Neurological: Yes: Alert, Oriented, Cran Nerves II-XII Intact Psychiatric: Yes: WNL, Alert, Oriented Labs: CBC, BMP 04/09/16 06:00 04/09/16 06:00 INR, PTT INR 1.27 (0.82-1.09) H 03/30/16 05:20 Fibrinogen 547.0 mg/dL (238-498) H 03/17/16 06:30 - ....Imaging Chest X-ray: Report Reviewed, Image Reviewed EKG: Report Reviewed, Image Reviewed Other: Report Reviewed, Image Reviewed Assessment/Plan IMP: Acute on chronic hypercarbic respiratory failure Chronic COPD Sepsis, gram + Bacteremia, infected HD catheter- removed ESRD CAD REC: Resp. failure: required intubation during admission -now extubated, s/p thoracentesis for pleural effusions -diuresing well now and has not required further HD -bun/creat still trending down -volume status has significantly improved -Lasix was increased to 60mg po daily starting today -cont to closely monitor volume status, bun/creat, may need to again increase dose to maintain negative fluid balance -bipap as needed -steroids as per pulm reccs Sepsis: -MRSA bacteremia; infected HD catheter removed. -Abx as per ID -TTE showed no evidence of endocarditis -YIMI would be very technically difficult given pts tenuous respiratory status, he would likely need to be intubated for the procedure which could lead to additional complications. As he is clinically improving and his last set of blood cultures showed no growth would prefer to hold off on YIMI and cont full course of Abx. Additionally, pt is not a good surgical candidate and need for surgical intervention would be the reason to do a YIMI. -would cont Abx and check routine surveillance cultures as per ID reccs CAD: s/p PCI with stents this year -thrombocytopenia resolved -cont ASA 81mg daily
--- NOTE | 2016-04-09 14:26 | PN ---
Progress Note, Physician History of Present Illness: patient stable no new issues - Current Medication List Current Medications: Active Medications Acetaminophen (Tylenol -) 650 mg PO Q6H PRN PRN Reason: FEVER OR PAIN Albuterol Sulfate (Ventolin 0.042trength) -) 1 amp NEB Q6H PRN PRN Reason: SHORT OF BREATH/WHEEZING Last Admin: 04/09/16 08:47 Dose: 1 amp Albuterol/Ipratropium (Duoneb -) 1 amp NEB QIDR [facility] Last Admin: 04/09/16 11:20 Dose: 1 amp Amlodipine Besylate (Norvasc -) 10 mg PO DAILY [facility] Last Admin: 04/09/16 09:55 Dose: 10 mg Aspirin (Ecotrin -) 81 mg PO DAILY [facility] Last Admin: 04/09/16 09:54 Dose: 81 mg Docusate Sodium (Colace -) 100 mg PO BID [facility] Last Admin: 04/09/16 09:54 Dose: Not Given Duloxetine HCl (Cymbalta -) 30 mg PO DAILY [facility] Last Admin: 04/09/16 09:54 Dose: 30 mg Epoetin Keith (Procrit -) 20,000 unit SQ MoWeFr@1000 [facility] Last Admin: 04/07/16 12:11 Dose: 20,000 unit Furosemide (Lasix -) 60 mg PO DAILY [facility] Last Admin: 04/09/16 09:54 Dose: 60 mg Heparin Sodium (Porcine) (Heparin -) 5,000 unit SQ TID [facility] Last Admin: 04/09/16 13:56 Dose: Not Given Pantoprazole Sodium (Protonix -) 40 mg PO DAILY [facility] Last Admin: 04/09/16 09:55 Dose: 40 mg Polyethylene Glycol (Miralax (For Daily Use) -) 17 gm PO DAILY [facility] Last Admin: 04/09/16 09:55 Dose: Not Given Prednisone (Deltasone -) 30 mg PO DAILY [facility] Last Admin: 04/09/16 09:54 Dose: 30 mg Sodium Chloride ([place] Nasal [place] -) 2 spray NS Q12H PRN PRN Reason: NASAL CONGESTION Zinc Oxide/Panthenol/Vitamin E (Balmex Cream -) 1 applic TP ASDIR PRN PRN Reason: HYGEINE - Objective Vital Signs: Vital Signs Temperature 97.8 F 04/09/16 06:00 Pulse Rate 93 H 04/09/16 08:47 Respiratory Rate 22 04/09/16 06:00 Blood Pressure 125/64 04/09/16 06:00 O2 Sat by Pulse Oximetry (%) 95 04/09/16 08:47 Constitutional: Yes: No Distress, Calm Cardiovascular: Yes: Regular Rate and Rhythm Respiratory: Yes: Regular, Other Gastrointestinal: Yes: Normal Bowel Sounds, Soft Musculoskeletal: Yes: Other Extremities: Yes: Other Integumentary: Yes: Other Neurological: Yes: Alert, Oriented Psychiatric: Yes: Alert Labs: CBC, BMP 04/09/16 06:00 04/09/16 06:00 INR, PTT INR 1.27 (0.82-1.09) H 03/30/16 05:20 Fibrinogen 547.0 mg/dL (238-498) H 03/17/16 06:30 Assessment/Plan 75 year-old man with a PMH of HTN, PVD, COPD, CKD (baseline Cr 1.9), nephrolithiasis, and chronic LE lymphedema. Admitted in acute renal failure. Acute on chronic renal failure Hyperkalemia Sepsis s Hypertension Peripheral vascular disease Hypercarbic respiratory failure COPD bilateral cellulitis of the legs rsv lung infection pleural effusion anemia fevers gm positive bacteremia mrsa bacteremia plan vanco dose ordered vanco level ordered patients wbc has started to climb again--worrying sign i am going to add azactam again and see
[2016-04-09] MEDS ORDERED: VANCOMYCIN 750 MG in DEXTROSE 5%-WATER - 250 ML IVPB ONE (15:15)
[2016-04-09] MEDS ORDERED: FUROSEMIDE 40 MG/4 ML INJECTABLE VIAL IVPB ONE (15:25)
--- NOTE | 2016-04-09 15:31 | HOSP ---
Subjective - Review of Symptoms Events since last encounter: Called because patient is having shortness of breath. On 40% VM, refusing bipap ordered stat cxr portable r/o pulmonary edema Lungs: positive for rhonchi with schattered wheezing lower extremeties: positive for 2 plus edema stat lasix 40mg IV lasix ordered. Physical Examination Vital Signs: Vital Signs Temperature 98.5 F 04/09/16 08:00 Pulse Rate 93 H 04/09/16 08:47 Respiratory Rate 20 04/09/16 08:00 Blood Pressure 144/53 04/09/16 08:00 O2 Sat by Pulse Oximetry (%) 95 04/09/16 08:47 Labs: CBC, BMP 04/09/16 06:00 04/09/16 06:00
--- NOTE | 2016-04-09 16:03 | PN ---
Progress Note, Physician History of Present Illness: Pt more dyspneic earlier today. Currently less short of breath. Oriented and alert but remains tachypneic and desaturates off O2. - Current Medication List Current Medications: Active Medications Acetaminophen (Tylenol -) 650 mg PO Q6H PRN PRN Reason: FEVER OR PAIN Albuterol Sulfate (Ventolin 0.042trength) -) 1 amp NEB Q6H PRN PRN Reason: SHORT OF BREATH/WHEEZING Last Admin: 04/09/16 14:54 Dose: 1 amp Albuterol/Ipratropium (Duoneb -) 1 amp NEB QIDR [facility] Last Admin: 04/09/16 11:20 Dose: 1 amp Amlodipine Besylate (Norvasc -) 10 mg PO DAILY [facility] Last Admin: 04/09/16 09:55 Dose: 10 mg Aspirin (Ecotrin -) 81 mg PO DAILY [facility] Last Admin: 04/09/16 09:54 Dose: 81 mg Docusate Sodium (Colace -) 100 mg PO BID [facility] Last Admin: 04/09/16 09:54 Dose: Not Given Duloxetine HCl (Cymbalta -) 30 mg PO DAILY [facility] Last Admin: 04/09/16 09:54 Dose: 30 mg Epoetin Keith (Procrit -) 20,000 unit SQ MoWeFr@1000 [facility] Last Admin: 04/07/16 12:11 Dose: 20,000 unit Furosemide (Lasix -) 60 mg PO DAILY [facility] Last Admin: 04/09/16 09:54 Dose: 60 mg Heparin Sodium (Porcine) (Heparin -) 5,000 unit SQ TID [facility] Last Admin: 04/09/16 13:56 Dose: Not Given Vancomycin HCl 750 mg/ (Dextrose) 250 mls @ 166.667 mls/hr IVPB ONCE ONE Stop: 04/09/16 16:44 Aztreonam 0.5 gm/ Dextrose 50 mls @ 100 mls/hr IVPB Q8H-IV [facility] Pantoprazole Sodium (Protonix -) 40 mg PO DAILY [facility] Last Admin: 04/09/16 09:55 Dose: 40 mg Polyethylene Glycol (Miralax (For Daily Use) -) 17 gm PO DAILY [facility] Last Admin: 04/09/16 09:55 Dose: Not Given Prednisone (Deltasone -) 30 mg PO DAILY [facility] Last Admin: 04/09/16 09:54 Dose: 30 mg Sodium Chloride ([place] Nasal [place] -) 2 spray NS Q12H PRN PRN Reason: NASAL CONGESTION Zinc Oxide/Panthenol/Vitamin E (Balmex Cream -) 1 applic TP ASDIR PRN PRN Reason: HYGEINE - Objective Vital Signs: Vital Signs Temperature 98.1 F 04/09/16 15:45 Pulse Rate 95 H 04/09/16 15:45 Respiratory Rate 20 04/09/16 15:45 Blood Pressure 147/71 04/09/16 15:45 O2 Sat by Pulse Oximetry (%) 95 04/09/16 08:47 Constitutional: Yes: Mild Distress Eyes: No: Sclera Icterus HENT: Yes: Atraumatic, Normocephalic Neck: Yes: Supple, Trachea Midline Cardiovascular: Yes: Regular Rate and Rhythm. No: JVD Respiratory: Yes: Rhonchi (bilateral) Gastrointestinal: Yes: Soft. No: Tenderness Edema: Yes Edema: LLE: 1+, RLE: 1+ Neurological: Yes: Alert, Oriented Labs: CBC, BMP 04/09/16 06:00 04/09/16 06:00 INR, PTT INR 1.27 (0.82-1.09) H 03/30/16 05:20 Fibrinogen 547.0 mg/dL (238-498) H 03/17/16 06:30 - ....Imaging Chest X-ray: Report Reviewed, Image Reviewed (bilateral effussions-about the same as 04/06/16) Problem List - Problems (1) COPD exacerbation Code(s): J44.1 - CHRONIC OBSTRUCTIVE PULMONARY DISEASE W (ACUTE) EXACERBATION (2) Acute and chronic respiratory failure ([id number]) Code(s): J96.20 - ACUTE AND CHR RESP FAILURE, UNSP W HYPOXIA OR HYPERCAPNIA Qualifiers: Qualified Code(s): J96.21 - Acute and chronic respiratory failure with hypoxia (3) Acute kidney failure Code(s): N17.9 - ACUTE KIDNEY FAILURE, UNSPECIFIED Qualifiers: Qualified Code(s): N17.9 - Acute kidney failure, unspecified (4) Chronic kidney disease (CKD) Code(s): N18.9 - CHRONIC KIDNEY DISEASE, UNSPECIFIED Qualifiers: Qualified Code(s): N18.9 - Chronic kidney disease, unspecified (5) Cellulitis Code(s): L03.90 - CELLULITIS, UNSPECIFIED (6) Hyperkalemia Code(s): E87.5 - HYPERKALEMIA (7) Arteriosclerotic heart disease (ASHD) Code(s): I25.10 - ATHSCL HEART DISEASE OF [place] CORONARY ARTERY W/O ANG PCTRS (8) Obesities, morbid Code(s): E66.01 - MORBID (SEVERE) OBESITY DUE TO EXCESS CALORIES Qualifiers: Qualified Code(s): E66.2 - Morbid (severe) obesity with alveolar hypoventilation Assessment/Plan Acute on Chronic Respiratory failure:tachypneic and needs O2 Sepsis-MRSA: on antibiotics. Latest blood cultures: no growth COPD Exacerbation-steroids being tapered slowly Acute on Chronic Respiratory Failure Morbid Obesity Acute and Chronic Renal Failure: improved. Renal function continues to improve. Creat 1.8 ASHD CHF- increased Plan: BiPAP PRN Antibiotic per I.D. Inhaled bronchodilators Prednisone taper-pt was on maintenance dose of 10 mg daily prior to hospitalization Diuretic was increased to Furosemide 60 mg today. O2 to maintain SaO2>90 Bedside PT. restarted Discharge planning-pt will need physical therapy in SNF
[2016-04-09] MEDS: AZTREONAM 0.5 GM in DEXTROSE 5%-WATER - 50 ML IVPB SCH ×2 (17:58)
[2016-04-09] MEDS: ACETAMINOPHEN 325 MG TABLET (FP) PO PRN (21:29)
[2016-04-10] MEDS ORDERED: PT OWN MED DRAWER 7, Y5N ONE ×3 (00:48→18:02)
[2016-04-10] MEDS: AZTREONAM 0.5 GM in DEXTROSE 5%-WATER - 50 ML IVPB SCH ×3 (01:17→17:11)
[2016-04-10] MEDS: ALBUTEROL SO4 2.5/IPRATROPIUM 0.5 INH SOL 3 ML VIAL.NEB. NEB SCH ×4 (05:52→23:30)
[2016-04-10] MEDS: HEPARIN NA (PORCINE) 5,000 UNITS/ML 1ML VIAL SQ SCH ×4 (05:59→21:12)
[2016-04-10 08:49] LABS: MCH 26.7 pg (25.7-33.7); MCHC 30.5 g/dl (32.0-35.9); MEAN CELL VOLUME 87.3 fl (80-96); MEAN PLT VOLUME 7.7 fl (7.5-11.1); PLATELET COUNT 352 K/MM3 (134-434); RDW 22.3 % (11.9-15.9)
[2016-04-10 09:12] LABS: ALBUMIN 2.4 g/dl (3.4-5.0); BILIRUBIN,TOTAL 0.7 mg/dL (0.2-1.0); CALCIUM 7.6 mg/dL (8.5-10.1); CREATININE 1.6 mg/dL (0.7-1.3); TOT PROT 5.5 g/dl (6.4-8.2)
[2016-04-10] MEDS: PANTOPRAZOLE 40 MG TABLET (FP) PO SCH (09:45)
[2016-04-10] MEDS: DULoxetine HCL 30 MG CAPSULE.DR (FP) PO SCH (09:45)
[2016-04-10] MEDS: ASPIRIN COATED 81 MG TABLET.EC PO SCH (09:45)
[2016-04-10] MEDS: POLYETHYLENE GLYCOL 3350 119 GM BTL PO SCH (09:46)
[2016-04-10] MEDS: predniSONE 20 MG TABLET (UD) PO SCH (09:46)
[2016-04-10] MEDS: amLODIPine BESYLATE 10 MG TABLET (FP) PO SCH (09:46)
[2016-04-10] MEDS: DOCUSATE SODIUM 100 MG CAPSULE (FP) PO SCH ×2 (09:46→21:12)
[2016-04-10 09:58] LABS: METAMYELOCYTE 2 % (0-2)
[2016-04-10 09:59] LABS: ANISOCYTOSIS 3+; HYPOCHROMIA 2+; MICROCYTOSIS 1+; OVALOCYTES 1+; PLATELET ESTIMATE ADEQUATE (NORMAL); POLYCHROMASIA 2+; TEAR DROP CELLS 1+
[2016-04-10] MEDS ORDERED: FUROSEMIDE 40 MG TABLET (FP) PO SCH (10:00)
[2016-04-10] MEDS: EPOETIN ALFA 20,000 UNIT/1 ML VIAL SQ SCH (10:44)
--- NOTE | 2016-04-10 12:09 | PN ---
Progress Note (short form) - Note Progress Note: Renal Follow up for KARLOS Pt seen and examined at the bedside has sob today does not want to wear bipap has orthopnea Vital Signs Temperature 97.5 F L 04/10/16 05:54 Pulse Rate 90 04/10/16 11:12 Respiratory Rate 18 04/10/16 05:54 Blood Pressure 129/74 04/10/16 05:54 O2 Sat by Pulse Oximetry (%) 95 04/10/16 11:12 Intake & Output 04/07/16 04/08/16 04/09/16 04/10/16 23:59 23:59 23:59 23:59 Intake Total 665 532 4479 345 Output Total 2450 1400 2200 400 Balance -2250 -1050 -1200 -55 Weight 241 lb 11.2 oz 240 lb 11.2 oz 204 lb 4 oz Gen: NAD CVS: RRR No M/R Lungs: dec BS throughout the lung rey Abd: Soft NT + Mild distension Ext: 1+ edema CBC, BMP 04/10/16 07:20 04/10/16 07:20 Current Medications Acetaminophen (Tylenol -) 650 mg PO Q6H PRN PRN Reason: FEVER OR PAIN Last Admin: 04/09/16 21:29 Dose: 650 mg Albuterol Sulfate (Ventolin 0.042trength) -) 1 amp NEB Q6H PRN PRN Reason: SHORT OF BREATH/WHEEZING Last Admin: 04/09/16 21:27 Dose: 1 amp Albuterol/Ipratropium (Duoneb -) 1 amp NEB QIDR [facility] Last Admin: 04/10/16 11:14 Dose: 1 amp Amlodipine Besylate (Norvasc -) 10 mg PO DAILY [facility] Last Admin: 04/10/16 09:46 Dose: 10 mg Aspirin (Ecotrin -) 81 mg PO DAILY [facility] Last Admin: 04/10/16 09:45 Dose: 81 mg Docusate Sodium (Colace -) 100 mg PO BID [facility] Last Admin: 04/10/16 09:46 Dose: 100 mg Duloxetine HCl (Cymbalta -) 30 mg PO DAILY [facility] Last Admin: 04/10/16 09:45 Dose: 30 mg Epoetin Keith (Procrit -) 20,000 unit SQ MoWeFr@1000 [facility] Last Admin: 04/10/16 10:44 Dose: 20,000 unit Furosemide (Lasix -) 80 mg PO ONCE ONE Stop: 04/10/16 14:01 Heparin Sodium (Porcine) (Heparin -) 5,000 unit SQ TID [facility] Last Admin: 04/10/16 05:59 Dose: 5,000 unit Aztreonam 0.5 gm/ Dextrose 50 mls @ 100 mls/hr IVPB Q8H-IV [facility] Last Admin: 04/10/16 09:45 Dose: 100 mls/hr Pantoprazole Sodium (Protonix -) 40 mg PO DAILY [facility] Last Admin: 04/10/16 09:45 Dose: 40 mg Polyethylene Glycol (Miralax (For Daily Use) -) 17 gm PO DAILY [facility] Last Admin: 04/10/16 09:46 Dose: Not Given Prednisone (Deltasone -) 30 mg PO DAILY [facility] Last Admin: 04/10/16 09:46 Dose: 30 mg Sodium Chloride ([place] Nasal [place] -) 2 spray NS Q12H PRN PRN Reason: NASAL CONGESTION Torsemide (Demadex -) 40 mg PO DAILY [facility] Zinc Oxide/Panthenol/Vitamin E (Balmex Cream -) 1 applic TP ASDIR PRN PRN Reason: HYGEINE A/P 75 year old Gentleman with PMhx of CKD Stage 3 (baseline Cr 1.9), Hx of Nephrolithiasis, Hypertension, COPD, CHF, PVD, Chronic LE lymph edema who was sent into the ED from wound care for increased lethargy and decreased urination for several days with KARLOS with BUN/Cr of 115/7.2 and K of 6.5 #Acute on Chronic Renal failure with volume overload Renal function improving Give Extra Lasix 80mg this evening and start Torsemide 40mg tomorrow Trend BUN/Cr #MRSA Bactermia from dialysis catheter infection Repeat blood cultures from 04/02 w/o growth Continue Vanco dosed by levels ID following YIMI 03/30 w/o Veg #Anemia Continue Procrit TIW #Hyperphosphatemia - now improved hold Phoslo trend zaris Melvin Johnson DO
--- NOTE | 2016-04-10 12:34 | PN ---
Progress Note, Physician - Current Medication List Current Medications: Active Medications Acetaminophen (Tylenol -) 650 mg PO Q6H PRN PRN Reason: FEVER OR PAIN Last Admin: 04/09/16 21:29 Dose: 650 mg Albuterol Sulfate (Ventolin 0.042trength) -) 1 amp NEB Q6H PRN PRN Reason: SHORT OF BREATH/WHEEZING Last Admin: 04/09/16 21:27 Dose: 1 amp Albuterol/Ipratropium (Duoneb -) 1 amp NEB QIDR [facility] Last Admin: 04/10/16 11:14 Dose: 1 amp Amlodipine Besylate (Norvasc -) 10 mg PO DAILY [facility] Last Admin: 04/10/16 09:46 Dose: 10 mg Aspirin (Ecotrin -) 81 mg PO DAILY [facility] Last Admin: 04/10/16 09:45 Dose: 81 mg Docusate Sodium (Colace -) 100 mg PO BID [facility] Last Admin: 04/10/16 09:46 Dose: 100 mg Duloxetine HCl (Cymbalta -) 30 mg PO DAILY [facility] Last Admin: 04/10/16 09:45 Dose: 30 mg Epoetin Keith (Procrit -) 20,000 unit SQ MoWeFr@1000 [facility] Last Admin: 04/10/16 10:44 Dose: 20,000 unit Furosemide (Lasix -) 80 mg PO ONCE ONE Stop: 04/10/16 14:01 Heparin Sodium (Porcine) (Heparin -) 5,000 unit SQ TID [facility] Last Admin: 04/10/16 05:59 Dose: 5,000 unit Aztreonam 0.5 gm/ Dextrose 50 mls @ 100 mls/hr IVPB Q8H-IV [facility] Last Admin: 04/10/16 09:45 Dose: 100 mls/hr Pantoprazole Sodium (Protonix -) 40 mg PO DAILY [facility] Last Admin: 04/10/16 09:45 Dose: 40 mg Polyethylene Glycol (Miralax (For Daily Use) -) 17 gm PO DAILY [facility] Last Admin: 04/10/16 09:46 Dose: Not Given Prednisone (Deltasone -) 30 mg PO DAILY [facility] Last Admin: 04/10/16 09:46 Dose: 30 mg Sodium Chloride ([place] Nasal [place] -) 2 spray NS Q12H PRN PRN Reason: NASAL CONGESTION Torsemide (Demadex -) 40 mg PO DAILY [facility] Zinc Oxide/Panthenol/Vitamin E (Balmex Cream -) 1 applic TP ASDIR PRN PRN Reason: HYGEINE - Objective Vital Signs: Vital Signs Temperature 97.8 F 04/10/16 09:00 Pulse Rate 90 04/10/16 11:12 Respiratory Rate 18 04/10/16 09:00 Blood Pressure 128/78 04/10/16 09:00 O2 Sat by Pulse Oximetry (%) 95 04/10/16 11:12 Labs: CBC, BMP 04/10/16 07:20 04/10/16 07:20 INR, PTT INR 1.27 (0.82-1.09) H 03/30/16 05:20 Fibrinogen 547.0 mg/dL (238-498) H 03/17/16 06:30 Assessment/Plan IMP: Acute on chronic hypercarbic respiratory failure Chronic COPD Sepsis, gram + Bacteremia, infected HD catheter- removed ESRD CAD REC: Resp. failure: required intubation during admission -now extubated, s/p thoracentesis for pleural effusions -diuresing well now and has not required further HD, bun/creat trending down -I/os recorded as net negative each day for several days -agree with extra lasix this evening and change to torsemide 40mg daily tomorrow -bipap as needed -steroids as per pulm reccs Sepsis: -MRSA bacteremia; infected HD catheter removed. -Abx as per ID -TTE showed no evidence of endocarditis -YIMI discussion as per my note yesterday -would cont Abx and check routine surveillance cultures as per ID reccs -if felt that a YIMI would supervisor policy change clerks then can be performed but pt would likely require intubation for the procedure CAD: s/p PCI with stents this year -thrombocytopenia resolved -cont ASA 81mg daily
[2016-04-10] MEDS ORDERED: FUROSEMIDE 40 MG TABLET (FP) PO ONE (14:00)
--- NOTE | 2016-04-10 14:32 | PN ---
Progress Note (short form) - Note Progress Note: Subjective: feels he could not breath . no cp or fever . no cough . declined BIPAP last night Objective: Vital Signs: Last Vital Signs Temp Pulse Resp BP Pulse Ox 97.9 F 93 H 18 149/106 95 04/10/16 13:00 04/10/16 13:00 04/10/16 13:00 04/10/16 13:00 04/10/16 11:12 Intake & Output 04/07/16 04/08/16 04/09/16 04/10/16 23:59 23:59 23:59 23:59 Intake Total 418 493 4533 345 Output Total 2450 1400 2200 400 Balance -2250 -1050 -1200 -55 Weight 241 lb 11.2 oz 240 lb 11.2 oz 204 lb 4 oz Labs: Laboratory Results - last 24 hr 04/10/16 04/10/16 07:20 07:20 WBC 13.0 H RBC 3.21 L Hgb 8.6 L Hct 28.0 L MCV 87.3 MCHC 30.5 L RDW 22.3 H Plt Count 352 MPV 7.7 Neutrophils % 63.0 D Lymphocytes % 12.0 Monocytes % 14.0 H D Eosinophils % 2.0 D Basophils % 1.0 D Band Neutrophils 6.0 D Metamyelocytes 2 D Nucleated RBCs 1 H Differential Comment Manual diff done Platelet Estimate Adequate Platelet Comment Mod plt clumping Polychromasia 2+ Hypochromic-Microcytic 2+ Anisocytosis 3+ Microcytosis 1+ Macrocytosis 2+ Tear Drop Cells 1+ Ovalocytes 1+ Sodium 144 Potassium 4.1 Chloride 102 Carbon Dioxide 33 H Anion Gap 9 BUN 32 H Creatinine 1.6 H Creat Clearance w eGFR 42.58 Random Glucose 86 Calcium 7.6 L Total Bilirubin 0.7 D AST 18 ALT 16 Alkaline Phosphatase 88 Total Protein 5.5 L Albumin 2.4 L Random Vancomycin 13.978 PE : NAD Cv: RRR Lungs: decreased breath sounds at bases ,no wheezes or crackles Ext: 1 + pitting edema , erythema improved , ASSESSMENT AND PLAN: 75 year-old man with a PMHx of HTN, PVD, COPD, CKD (baseline Cr 1.8), nephrolithiasis, D CHF , CAD s/p stenting in 03/23 and chronic LE lymphedema. presented with SOB and was found to have acute hypercapnic resp failure with acute renal failure . 1- Acute hypercapnic resp failure due to COPD exa , diastolic heart failure and pleural effusions . s/p intubation and now extubated . s/p bilateral thoracocentesis steroid taper Refuses to use BIPAP change diuretics to torsemide with an extra lasix today . 2-MRSA bacteremia 2/2 to infected HD cath . LE cellulitis cont Vanco ( will order a dose today ) . now on azactam appreciate CArd Recs re. YIMI 3- KARLOS on CKD: improved . 4- Normocytic anemia. s/p transfusion. cont to monitor. Transfuse PRN procrit per renal 5- Thrombocytopenia: recovered 6- HTN: cont norvasc 7- CAD : Stenting 03/23 cont asa . Visit type - Emergency Visit Emergency Visit: Yes ED Registration Date: 02/18/16 Care time: The patient presented to the Emergency Department on the above date and was hospitalized for further evaluation of their emergent condition. - New Patient This patient is new to me today: Yes Date on this admission: 04/10/16 - Critical Care Critical Care patient: No
[2016-04-10] MEDS ORDERED: VANCOMYCIN 750 MG in DEXTROSE 5%-WATER - 250 ML IVPB ONE (15:30)
[2016-04-10] MEDS: ACETAMINOPHEN 325 MG TABLET (FP) PO PRN (21:12)
[2016-04-11] MEDS: AZTREONAM 0.5 GM in DEXTROSE 5%-WATER - 50 ML IVPB SCH ×3 (02:40→17:15)
[2016-04-11] MEDS ORDERED: PT OWN MED DRAWER 7, Y5N ONE ×2 (02:40→09:01)
[2016-04-11] MEDS: HEPARIN NA (PORCINE) 5,000 UNITS/ML 1ML VIAL SQ SCH ×3 (05:37→21:15)
[2016-04-11] MEDS: ALBUTEROL SO4 2.5/IPRATROPIUM 0.5 INH SOL 3 ML VIAL.NEB. NEB SCH ×4 (06:27→23:18)
[2016-04-11 08:55] LABS: MCH 26.5 pg (25.7-33.7); MCHC 30.6 g/dl (32.0-35.9); MEAN CELL VOLUME 86.7 fl (80-96); MEAN PLT VOLUME 7.6 fl (7.5-11.1); PLATELET COUNT 308 K/MM3 (134-434); RDW 22.7 % (11.9-15.9); WHITE BLOOD COUNT 11.1 K/mm3 (4.0-10.0)
[2016-04-11] MEDS: predniSONE 20 MG TABLET (UD) PO SCH (09:03)
[2016-04-11] MEDS: PANTOPRAZOLE 40 MG TABLET (FP) PO SCH (09:03)
[2016-04-11] MEDS: DULoxetine HCL 30 MG CAPSULE.DR (FP) PO SCH (09:03)
[2016-04-11] MEDS: TORSEMIDE 20 MG TABLET (FP) PO SCH (09:03)
[2016-04-11] MEDS: ASPIRIN COATED 81 MG TABLET.EC PO SCH (09:03)
[2016-04-11] MEDS: amLODIPine BESYLATE 10 MG TABLET (FP) PO SCH (09:03)
[2016-04-11] MEDS: POLYETHYLENE GLYCOL 3350 119 GM BTL PO SCH (09:04)
[2016-04-11] MEDS: DOCUSATE SODIUM 100 MG CAPSULE (FP) PO SCH ×2 (09:06→21:15)
--- NOTE | 2016-04-11 11:08 | PN ---
Progress Note, Physician Chief Complaint: alert and feeling well, no complaints - Current Medication List Current Medications: Active Medications Acetaminophen (Tylenol -) 650 mg PO Q6H PRN PRN Reason: FEVER OR PAIN Last Admin: 04/10/16 21:12 Dose: 650 mg Albuterol Sulfate (Ventolin 0.042trength) -) 1 amp NEB Q6H PRN PRN Reason: SHORT OF BREATH/WHEEZING Last Admin: 04/09/16 21:27 Dose: 1 amp Albuterol/Ipratropium (Duoneb -) 1 amp NEB QIDR [facility] Last Admin: 04/11/16 06:27 Dose: 1 amp Amlodipine Besylate (Norvasc -) 10 mg PO DAILY [facility] Last Admin: 04/11/16 09:03 Dose: 10 mg Aspirin (Ecotrin -) 81 mg PO DAILY [facility] Last Admin: 04/11/16 09:03 Dose: 81 mg Docusate Sodium (Colace -) 100 mg PO BID [facility] Last Admin: 04/11/16 09:06 Dose: 100 mg Duloxetine HCl (Cymbalta -) 30 mg PO DAILY [facility] Last Admin: 04/11/16 09:03 Dose: 30 mg Epoetin Keith (Procrit -) 20,000 unit SQ MoWeFr@1000 [facility] Last Admin: 04/10/16 10:44 Dose: 20,000 unit Heparin Sodium (Porcine) (Heparin -) 5,000 unit SQ TID [facility] Last Admin: 04/11/16 05:37 Dose: 5,000 unit Aztreonam 0.5 gm/ Dextrose 50 mls @ 100 mls/hr IVPB Q8H-IV [facility] Last Admin: 04/11/16 09:04 Dose: 100 mls/hr Pantoprazole Sodium (Protonix -) 40 mg PO DAILY [facility] Last Admin: 04/11/16 09:03 Dose: 40 mg Polyethylene Glycol (Miralax (For Daily Use) -) 17 gm PO DAILY [facility] Last Admin: 04/11/16 09:04 Dose: Not Given Prednisone (Deltasone -) 30 mg PO DAILY [facility] Last Admin: 04/11/16 09:03 Dose: 30 mg Sodium Chloride ([place] Nasal [place] -) 2 spray NS Q12H PRN PRN Reason: NASAL CONGESTION Torsemide (Demadex -) 40 mg PO DAILY [facility] Last Admin: 04/11/16 09:03 Dose: 40 mg Zinc Oxide/Panthenol/Vitamin E (Balmex Cream -) 1 applic TP ASDIR PRN PRN Reason: HYGEINE - Objective Vital Signs: Vital Signs Temperature 97.5 F L 04/11/16 01:50 Pulse Rate 80 04/11/16 01:50 Respiratory Rate 20 04/11/16 01:50 Blood Pressure 125/62 04/11/16 01:50 O2 Sat by Pulse Oximetry (%) 95 04/10/16 20:28 Constitutional: Yes: No Distress Cardiovascular: Yes: Regular Rate and Rhythm Respiratory: Yes: CTA Bilaterally Gastrointestinal: Yes: Soft, Abdomen, Obese Edema: No Neurological: Yes: Alert, Oriented Labs: CBC, BMP 04/11/16 08:25 04/10/16 07:20 INR, PTT INR 1.27 (0.82-1.09) H 03/30/16 05:20 Fibrinogen 547.0 mg/dL (238-498) H 03/17/16 06:30 Laboratory Tests 04/10/16 04/11/16 07:20 08:25 WBC 11.1 H Hgb 8.3 L Plt Count 308 Sodium 144 Potassium 4.1 BUN 32 H Creatinine 1.6 H Assessment/Plan IMP: Acute on chronic hypercarbic respiratory failure Chronic COPD Sepsis, gram + Bacteremia, infected HD catheter- removed ESRD CAD REC: Resp. failure: required intubation during admission -now extubated, s/p thoracentesis for pleural effusions -diuresing well now and has not required further HD, bun/creat trending down -Continue torsemide -bipap as needed -steroids as per pulm reccs Sepsis: -MRSA bacteremia; infected HD catheter removed. -Abx as per ID -TTE showed no evidence of endocarditis -would cont Abx and check routine surveillance cultures as per ID reccs -if felt that a YIMI would pattern changer and repairer then can be performed but pt would likely require intubation for the procedure CAD: s/p PCI with stents this year -thrombocytopenia resolved -cont ASA 81mg daily
--- NOTE | 2016-04-11 11:25 | PN ---
Progress Note (short form) - Note Progress Note: Renal Follow up for KARLOS Pt seen and examined at the bedside no acute complaints no sob, chest pain wants different diet Vital Signs Temperature 97.5 F L 04/11/16 01:50 Pulse Rate 80 04/11/16 01:50 Respiratory Rate 20 04/11/16 01:50 Blood Pressure 125/62 04/11/16 01:50 O2 Sat by Pulse Oximetry (%) 95 04/10/16 20:28 Intake & Output 04/08/16 04/09/16 04/10/16 04/11/16 23:59 23:59 23:59 23:59 Intake Total 350 1000 1095 50 Output Total 1400 2200 1300 1300 Balance -1050 -1200 -205 -1250 Weight 241 lb 11.2 oz 240 lb 11.2 oz 240 lb 4 oz 237 lb 5 oz Gen: NAD CVS: RRR No M/R Lungs: dec BS throughout the lung rey Abd: Soft NT + Mild distension Ext: 1+ edema CBC, BMP 04/11/16 08:25 04/10/16 07:20 Current Medications Acetaminophen (Tylenol -) 650 mg PO Q6H PRN PRN Reason: FEVER OR PAIN Last Admin: 04/10/16 21:12 Dose: 650 mg Albuterol Sulfate (Ventolin 0.042trength) -) 1 amp NEB Q6H PRN PRN Reason: SHORT OF BREATH/WHEEZING Last Admin: 04/09/16 21:27 Dose: 1 amp Albuterol/Ipratropium (Duoneb -) 1 amp NEB QIDR [facility] Last Admin: 04/11/16 06:27 Dose: 1 amp Amlodipine Besylate (Norvasc -) 10 mg PO DAILY [facility] Last Admin: 04/11/16 09:03 Dose: 10 mg Aspirin (Ecotrin -) 81 mg PO DAILY [facility] Last Admin: 04/11/16 09:03 Dose: 81 mg Docusate Sodium (Colace -) 100 mg PO BID [facility] Last Admin: 04/11/16 09:06 Dose: 100 mg Duloxetine HCl (Cymbalta -) 30 mg PO DAILY [facility] Last Admin: 04/11/16 09:03 Dose: 30 mg Epoetin Keith (Procrit -) 20,000 unit SQ MoWeFr@1000 [facility] Last Admin: 04/10/16 10:44 Dose: 20,000 unit Heparin Sodium (Porcine) (Heparin -) 5,000 unit SQ TID [facility] Last Admin: 04/11/16 05:37 Dose: 5,000 unit Aztreonam 0.5 gm/ Dextrose 50 mls @ 100 mls/hr IVPB Q8H-IV [facility] Last Admin: 04/11/16 09:04 Dose: 100 mls/hr Pantoprazole Sodium (Protonix -) 40 mg PO DAILY [facility] Last Admin: 04/11/16 09:03 Dose: 40 mg Polyethylene Glycol (Miralax (For Daily Use) -) 17 gm PO DAILY [facility] Last Admin: 04/11/16 09:04 Dose: Not Given Prednisone (Deltasone -) 30 mg PO DAILY [facility] Last Admin: 04/11/16 09:03 Dose: 30 mg Sodium Chloride ([place] Nasal [place] -) 2 spray NS Q12H PRN PRN Reason: NASAL CONGESTION Torsemide (Demadex -) 40 mg PO DAILY [facility] Last Admin: 04/11/16 09:03 Dose: 40 mg Zinc Oxide/Panthenol/Vitamin E (Balmex Cream -) 1 applic TP ASDIR PRN PRN Reason: HYGEINE A/P 75 year old Gentleman with PMhx of CKD Stage 3 (baseline Cr 1.9), Hx of Nephrolithiasis, Hypertension, COPD, CHF, PVD, Chronic LE lymph edema who was sent into the ED from wound care for increased lethargy and decreased urination for several days with KARLOS with BUN/Cr of 115/7.2 and K of 6.5 #Acute on Chronic Renal failure with volume overload Renal function continues to improve Continue Torsemide 40mg Daily Diet changed to low sodium soft diet #MRSA Bactermia from dialysis catheter infection Repeat blood cultures from 04/02 w/o growth Continue Vanco dosed by levels ID following YIMI 03/30 w/o Veg #Anemia Continue Procrit TIW #Hyperphosphatemia - now improved hold Phoslo trend phos Melvin Johnson DO
--- NOTE | 2016-04-11 14:26 | PN ---
Progress Note, Physician History of Present Illness: stable family in room hates the diet no other events - Current Medication List Current Medications: Active Medications Acetaminophen (Tylenol -) 650 mg PO Q6H PRN PRN Reason: FEVER OR PAIN Last Admin: 04/10/16 21:12 Dose: 650 mg Albuterol Sulfate (Ventolin 0.042trength) -) 1 amp NEB Q6H PRN PRN Reason: SHORT OF BREATH/WHEEZING Last Admin: 04/09/16 21:27 Dose: 1 amp Albuterol/Ipratropium (Duoneb -) 1 amp NEB QIDR [facility] Last Admin: 04/11/16 12:28 Dose: 1 amp Amlodipine Besylate (Norvasc -) 10 mg PO DAILY [facility] Last Admin: 04/11/16 09:03 Dose: 10 mg Aspirin (Ecotrin -) 81 mg PO DAILY [facility] Last Admin: 04/11/16 09:03 Dose: 81 mg Docusate Sodium (Colace -) 100 mg PO BID [facility] Last Admin: 04/11/16 09:06 Dose: 100 mg Duloxetine HCl (Cymbalta -) 30 mg PO DAILY [facility] Last Admin: 04/11/16 09:03 Dose: 30 mg Epoetin Keith (Procrit -) 20,000 unit SQ MoWeFr@1000 [facility] Last Admin: 04/10/16 10:44 Dose: 20,000 unit Heparin Sodium (Porcine) (Heparin -) 5,000 unit SQ TID [facility] Last Admin: 04/11/16 13:51 Dose: Not Given Aztreonam 0.5 gm/ Dextrose 50 mls @ 100 mls/hr IVPB Q8H-IV [facility] Last Admin: 04/11/16 09:04 Dose: 100 mls/hr Pantoprazole Sodium (Protonix -) 40 mg PO DAILY [facility] Last Admin: 04/11/16 09:03 Dose: 40 mg Polyethylene Glycol (Miralax (For Daily Use) -) 17 gm PO DAILY [facility] Last Admin: 04/11/16 09:04 Dose: Not Given Prednisone (Deltasone -) 30 mg PO DAILY [facility] Last Admin: 04/11/16 09:03 Dose: 30 mg Sodium Chloride ([place] Nasal [place] -) 2 spray NS Q12H PRN PRN Reason: NASAL CONGESTION Torsemide (Demadex -) 40 mg PO DAILY [facility] Last Admin: 04/11/16 09:03 Dose: 40 mg Zinc Oxide/Panthenol/Vitamin E (Balmex Cream -) 1 applic TP ASDIR PRN PRN Reason: HYGEINE - Objective Vital Signs: Vital Signs Temperature 98.0 F 04/11/16 14:00 Pulse Rate 94 H 04/11/16 14:00 Respiratory Rate 20 04/11/16 14:00 Blood Pressure 124/60 04/11/16 09:00 O2 Sat by Pulse Oximetry (%) 91 L 04/11/16 11:40 Constitutional: Yes: No Distress, Calm Cardiovascular: Yes: Regular Rate and Rhythm Respiratory: Yes: Regular, On Nasal O2, Poor Air Entry Gastrointestinal: Yes: Normal Bowel Sounds, Soft Musculoskeletal: Yes: Other Extremities: Yes: Other Edema: LLE: 1+, RLE: 1+ Integumentary: Yes: Erythema (minimal) Neurological: Yes: Alert, Oriented Psychiatric: Yes: Alert Labs: CBC, BMP 04/11/16 08:25 04/10/16 07:20 INR, PTT INR 1.27 (0.82-1.09) H 03/30/16 05:20 Fibrinogen 547.0 mg/dL (238-498) H 03/17/16 06:30 Assessment/Plan 75 year-old man with a PMH of HTN, PVD, COPD, CKD (baseline Cr 1.9), nephrolithiasis, and chronic LE lymphedema. Admitted in acute renal failure. Acute on chronic renal failure Hyperkalemia Sepsis s Hypertension Peripheral vascular disease Hypercarbic respiratory failure COPD bilateral cellulitis of the legs rsv lung infection pleural effusion anemia fevers gm positive bacteremia mrsa bacteremia plan wbc trending down continue abx once stable i think physio should come into play resp physio
--- NOTE | 2016-04-11 14:31 | PN ---
Progress Note, Physician History of Present Illness: Pt less dyspneic. No complaints at present. - Current Medication List Current Medications: Active Medications Acetaminophen (Tylenol -) 650 mg PO Q6H PRN PRN Reason: FEVER OR PAIN Last Admin: 04/10/16 21:12 Dose: 650 mg Albuterol Sulfate (Ventolin 0.042trength) -) 1 amp NEB Q6H PRN PRN Reason: SHORT OF BREATH/WHEEZING Last Admin: 04/09/16 21:27 Dose: 1 amp Albuterol/Ipratropium (Duoneb -) 1 amp NEB QIDR [facility] Last Admin: 04/11/16 12:28 Dose: 1 amp Amlodipine Besylate (Norvasc -) 10 mg PO DAILY [facility] Last Admin: 04/11/16 09:03 Dose: 10 mg Aspirin (Ecotrin -) 81 mg PO DAILY [facility] Last Admin: 04/11/16 09:03 Dose: 81 mg Docusate Sodium (Colace -) 100 mg PO BID [facility] Last Admin: 04/11/16 09:06 Dose: 100 mg Duloxetine HCl (Cymbalta -) 30 mg PO DAILY [facility] Last Admin: 04/11/16 09:03 Dose: 30 mg Epoetin Keith (Procrit -) 20,000 unit SQ MoWeFr@1000 [facility] Last Admin: 04/10/16 10:44 Dose: 20,000 unit Heparin Sodium (Porcine) (Heparin -) 5,000 unit SQ TID [facility] Last Admin: 04/11/16 13:51 Dose: Not Given Aztreonam 0.5 gm/ Dextrose 50 mls @ 100 mls/hr IVPB Q8H-IV [facility] Last Admin: 04/11/16 09:04 Dose: 100 mls/hr Vancomycin HCl 250 mg/ (Dextrose) 250 mls @ 250 mls/hr IVPB ONCE ONE Stop: 04/11/16 15:26 Pantoprazole Sodium (Protonix -) 40 mg PO DAILY [facility] Last Admin: 04/11/16 09:03 Dose: 40 mg Polyethylene Glycol (Miralax (For Daily Use) -) 17 gm PO DAILY [facility] Last Admin: 04/11/16 09:04 Dose: Not Given Prednisone (Deltasone -) 30 mg PO DAILY [facility] Last Admin: 04/11/16 09:03 Dose: 30 mg Sodium Chloride ([place] Nasal [place] -) 2 spray NS Q12H PRN PRN Reason: NASAL CONGESTION Torsemide (Demadex -) 40 mg PO DAILY [facility] Last Admin: 04/11/16 09:03 Dose: 40 mg Zinc Oxide/Panthenol/Vitamin E (Balmex Cream -) 1 applic TP ASDIR PRN PRN Reason: HYGEINE - Objective Vital Signs: Vital Signs Temperature 98.0 F 04/11/16 14:00 Pulse Rate 94 H 04/11/16 14:00 Respiratory Rate 20 04/11/16 14:00 Blood Pressure 124/60 04/11/16 09:00 O2 Sat by Pulse Oximetry (%) 91 L 04/11/16 11:40 Constitutional: Yes: No Distress Eyes: No: Sclera Icterus HENT: Yes: Atraumatic, Normocephalic Neck: Yes: Supple, Trachea Midline Cardiovascular: Yes: Regular Rate and Rhythm. No: JVD Respiratory: Yes: CTA Bilaterally Gastrointestinal: Yes: Soft. No: Tenderness Edema: No Neurological: Yes: Alert, Oriented Labs: CBC, BMP 04/11/16 08:25 04/10/16 07:20 INR, PTT INR 1.27 (0.82-1.09) H 03/30/16 05:20 Fibrinogen 547.0 mg/dL (238-498) H 03/17/16 06:30 Problem List - Problems (1) COPD exacerbation Code(s): J44.1 - CHRONIC OBSTRUCTIVE PULMONARY DISEASE W (ACUTE) EXACERBATION (2) Acute and chronic respiratory failure ([id number]) Code(s): J96.20 - ACUTE AND CHR RESP FAILURE, UNSP W HYPOXIA OR HYPERCAPNIA Qualifiers: Qualified Code(s): J96.21 - Acute and chronic respiratory failure with hypoxia (3) Acute kidney failure Code(s): N17.9 - ACUTE KIDNEY FAILURE, UNSPECIFIED Qualifiers: Qualified Code(s): N17.9 - Acute kidney failure, unspecified (4) Chronic kidney disease (CKD) Code(s): N18.9 - CHRONIC KIDNEY DISEASE, UNSPECIFIED Qualifiers: Qualified Code(s): N18.9 - Chronic kidney disease, unspecified (5) Cellulitis Code(s): L03.90 - CELLULITIS, UNSPECIFIED (6) Hyperkalemia Code(s): E87.5 - HYPERKALEMIA (7) Arteriosclerotic heart disease (ASHD) Code(s): I25.10 - ATHSCL HEART DISEASE OF [place] CORONARY ARTERY W/O ANG PCTRS (8) Obesities, morbid Code(s): E66.01 - MORBID (SEVERE) OBESITY DUE TO EXCESS CALORIES Qualifiers: Qualified Code(s): E66.2 - Morbid (severe) obesity with alveolar hypoventilation Assessment/Plan Acute on Chronic Respiratory failure:improved. Remains O2 dependent Sepsis-MRSA: on antibiotics. Latest blood cultures: no growth COPD Exacerbation-steroids being tapered slowly Acute on Chronic Respiratory Failure Morbid Obesity Acute and Chronic Renal Failure: improved. Renal function continues to improve. Creat 1.8 ASHD CHF- increased Plan: BiPAP PRN Antibiotic per I.D. Inhaled bronchodilators Prednisone taper-pt was on maintenance dose of 10 mg daily prior to hospitalization Diuretic dose as adjusted by marketing development representative. O2 to maintain SaO2>90 Bedside PT. Discharge planning-pt will need physical therapy in SNF
--- NOTE | 2016-04-11 14:31 | PN ---
Progress Note, Physician History of Present Illness: stable diet changed now feels better says today is one of the best day - Current Medication List Current Medications: Active Medications Acetaminophen (Tylenol -) 650 mg PO Q6H PRN PRN Reason: FEVER OR PAIN Last Admin: 04/10/16 21:12 Dose: 650 mg Albuterol Sulfate (Ventolin 0.042trength) -) 1 amp NEB Q6H PRN PRN Reason: SHORT OF BREATH/WHEEZING Last Admin: 04/09/16 21:27 Dose: 1 amp Albuterol/Ipratropium (Duoneb -) 1 amp NEB QIDR [facility] Last Admin: 04/11/16 12:28 Dose: 1 amp Amlodipine Besylate (Norvasc -) 10 mg PO DAILY [facility] Last Admin: 04/11/16 09:03 Dose: 10 mg Aspirin (Ecotrin -) 81 mg PO DAILY [facility] Last Admin: 04/11/16 09:03 Dose: 81 mg Docusate Sodium (Colace -) 100 mg PO BID [facility] Last Admin: 04/11/16 09:06 Dose: 100 mg Duloxetine HCl (Cymbalta -) 30 mg PO DAILY [facility] Last Admin: 04/11/16 09:03 Dose: 30 mg Epoetin Keith (Procrit -) 20,000 unit SQ MoWeFr@1000 [facility] Last Admin: 04/10/16 10:44 Dose: 20,000 unit Heparin Sodium (Porcine) (Heparin -) 5,000 unit SQ TID [facility] Last Admin: 04/11/16 13:51 Dose: Not Given Aztreonam 0.5 gm/ Dextrose 50 mls @ 100 mls/hr IVPB Q8H-IV [facility] Last Admin: 04/11/16 09:04 Dose: 100 mls/hr Vancomycin HCl 250 mg/ (Dextrose) 250 mls @ 250 mls/hr IVPB ONCE ONE Stop: 04/11/16 15:26 Pantoprazole Sodium (Protonix -) 40 mg PO DAILY [facility] Last Admin: 04/11/16 09:03 Dose: 40 mg Polyethylene Glycol (Miralax (For Daily Use) -) 17 gm PO DAILY [facility] Last Admin: 04/11/16 09:04 Dose: Not Given Prednisone (Deltasone -) 30 mg PO DAILY [facility] Last Admin: 04/11/16 09:03 Dose: 30 mg Sodium Chloride ([place]al [place] -) 2 spray NS Q12H PRN PRN Reason: NASAL CONGESTION Torsemide (Demadex -) 40 mg PO DAILY [facility] Last Admin: 04/11/16 09:03 Dose: 40 mg Zinc Oxide/Panthenol/Vitamin E (Balmex Cream -) 1 applic TP ASDIR PRN PRN Reason: HYGEINE - Objective Vital Signs: Vital Signs Temperature 98.0 F 04/11/16 14:00 Pulse Rate 94 H 04/11/16 14:00 Respiratory Rate 20 04/11/16 14:00 Blood Pressure 124/60 04/11/16 09:00 O2 Sat by Pulse Oximetry (%) 91 L 04/11/16 11:40 Constitutional: Yes: No Distress, Calm Cardiovascular: Yes: Regular Rate and Rhythm Respiratory: Yes: Regular, On Venti-Mask, Poor Air Entry Gastrointestinal: Yes: Normal Bowel Sounds, Soft Musculoskeletal: Yes: WNL Extremities: Yes: Other Edema: LLE: 1+, RLE: 1+ Integumentary: Yes: Erythema (minimal) Neurological: Yes: Alert, Oriented Psychiatric: Yes: Alert Labs: CBC, BMP 04/11/16 08:25 04/10/16 07:20 INR, PTT INR 1.27 (0.82-1.09) H 03/30/16 05:20 Fibrinogen 547.0 mg/dL (238-498) H 03/17/16 06:30 Assessment/Plan 75 year-old man with a PMH of HTN, PVD, COPD, CKD (baseline Cr 1.9), nephrolithiasis, and chronic LE lymphedema. Admitted in acute renal failure. Acute on chronic renal failure Hyperkalemia Sepsis s Hypertension Peripheral vascular disease Hypercarbic respiratory failure COPD bilateral cellulitis of the legs rsv lung infection pleural effusion anemia fevers gm positive bacteremia mrsa bacteremia plan wbc trending down continue current mgtm continue abx resp physio
[2016-04-11] MEDS ORDERED: VANCOMYCIN 250 MG in DEXTROSE 5%-WATER - 100 ML IVPB ONE (15:00)
--- NOTE | 2016-04-11 17:53 | PN ---
Teaching Attending Note Name of Resident: Zachery Blum ATTENDING PHYSICIAN STATEMENT I saw and evaluated the patient. I reviewed the resident's note and discussed the case with the resident. I agree with the resident's findings and plan as documented. SUBJECTIVE: no fever or chills, feels better . OBJECTIVE: NAD Cv: RRR Lungs: decreased breath sounds at bases . Ext : improved edema and thick skin. erythema improved A/P 75 year-old man with a PMHx of HTN, PVD, COPD, CKD (baseline Cr 1.8), nephrolithiasis, D CHF , CAD s/p stenting in 03/23 and chronic LE lymphedema. presented with SOB and was found to have acute hypercapnic resp failure with acute renal failure . 1- Acute hypercapnic resp failure due to COPD exa , diastolic heart failure and pleural effusions . s/p intubation and now extubated . s/p bilateral thoracocentesis steroids Refuses to use BIPAP cont demadex . 2-MRSA bacteremia 2/2 to infected HD cath . LE cellulitis cont Vanco . now on azactam 3- KARLOS on CKD: improved . 4- Normocytic anemia. transfuse PRN 5- Thrombocytopenia: recovered 6- HTN: cont norvasc 7- CAD : Stenting 03/23 cont asa . dispo : will be ready for rehab tomorrow .
--- NOTE | 2016-04-11 19:32 | PN ---
Physical Exam: SUBJECTIVE: Patient seen and examined Pt is awake, alert and oriented pt is less anxious Pt is in a pleasant mood today, he said he is feeling well Pt denies sob Pt is still on venti-mask 40% 8L no chest pain or palpitation, no fever, chills, no n/v OBJECTIVE: Vital Signs Period Temp Pulse Resp BP Sys/[place] Pulse Ox Last 24 Hr 97.5 F-99.2 F 80-94 18-20 124-130/60-84 91-97 ENERAL: The patient is awake, alert oriented, in no distress. HEAD: Normal with no signs of trauma. EYES: PERRL, extraocular movements intact, sclera anicteric, conjunctiva clear. No ptosis. ENT: Ears normal, nares patent, oropharynx clear without exudates, dry mucous membranes. NECK: Trachea midline, full range of motion, supple. LUNGS: scattered ronchi, b/l crackles in lung bases HEART: tachycardic, Regular rate and rhythm, S1, S2 without murmur, rub or gallop. ABDOMEN: Soft, nontender, nondistended, normoactive bowel sounds, no guarding, no rebound, no hepatosplenomegaly, no masses. EXTREMITIES: 2+ pulses, warm, well-perfused. b/l lower ext edema 1+ with wrinkle skin, lower ext 2+ pulses NEUROLOGICAL: gait not observed. Strength 5/5 in all ext PSYCH: anxious mood, normal affect. SKIN: Warm, dry, wrinkled skin in b/l lower ext, edema 2+ b/l lower ext. Laboratory Results - last 24 hr 04/11/16 04/11/16 08:25 09:36 WBC 11.1 H RBC 3.13 L Hgb 8.3 L Hct 27.1 L MCV 86.7 MCHC 30.6 L RDW 22.7 H Plt Count 308 MPV 7.6 Neutrophils % 79.0 D Lymphocytes % 9.0 D Monocytes % 7.0 Eosinophils % 2.0 Basophils % 1.0 Band Neutrophils 1.0 D Myelocytes 1 D Differential Comment Manual diff done Random Vancomycin 17.883 Active Medications Generic Name Dose Route Start Last Admin Trade Name Freq PRN Reason Stop Dose Admin Acetaminophen 650 mg 04/03/16 20:06 04/10/16 21:12 Tylenol - PO 650 mg Q6H PRN Administration FEVER OR PAIN Albuterol Sulfate 1 amp 04/03/16 20:06 04/09/16 21:27 Ventolin 0.042trength) - NEB 1 amp Q6H PRN Administration SHORT OF BREATH/WHEEZING Albuterol/Ipratropium 1 amp 04/04/16 00:00 04/11/16 18:41 Duoneb - NEB 1 amp QIDR [facility] Administration Amlodipine Besylate 10 mg 04/04/16 10:00 04/11/16 09:03 Norvasc - PO 10 mg DAILY [facility] Administration Aspirin 81 mg 04/04/16 10:00 04/11/16 09:03 Ecotrin - PO 81 mg DAILY [facility] Administration Docusate Sodium 100 mg 04/03/16 22:00 04/11/16 09:06 Colace - PO 100 mg BID [facility] Administration Duloxetine HCl 30 mg 04/08/16 10:00 04/11/16 09:03 Cymbalta - PO 30 mg DAILY [facility] Administration Epoetin Keith 20,000 unit 04/05/16 10:00 04/10/16 10:44 Procrit - SQ 20,000 unit MoWeFr@1000 [facility] Administration Heparin Sodium (Porcine) 5,000 unit 04/03/16 22:00 04/11/16 13:51 Heparin - SQ Not Given TID [facility] Aztreonam 0.5 gm/ Dextrose 50 mls @ 100 mls/hr 04/09/16 14:30 04/11/16 17:15 IVPB 100 mls/hr Q8H-IV [facility] Administration Pantoprazole Sodium 40 mg 04/08/16 11:15 04/11/16 09:03 Protonix - PO 40 mg DAILY [facility] Administration Polyethylene Glycol 17 gm 04/04/16 10:00 04/11/16 09:04 Miralax (For Daily Use) - PO Not Given DAILY [facility] Prednisone 30 mg 04/09/16 10:00 04/11/16 09:03 Deltasone - PO 30 mg DAILY [facility] Administration Sodium Chloride 2 spray 04/03/16 20:06 [place] Nasal [place] - NS Q12H PRN NASAL CONGESTION Torsemide 40 mg 04/11/16 10:00 04/11/16 09:03 Demadex - PO 40 mg DAILY [facility] Administration Zinc Oxide/Panthenol/Vitamin E 1 applic 12/26/16 20:06 Balmex Cream - TP ASDIR PRN HYGEINE CBC, BMP 04/11/16 08:25 04/10/16 07:20 Laboratory Tests 04/11/16 09:36 Random Vancomycin 17.883 Microbiology 04/04/16 21:00 Chest Gram Stain - Final 04/04/16 21:00 Chest Wound Culture - Final S Aureus Staphylococcus Coagulase Neg 04/02/16 05:35 Blood - Peripheral Venous Blood Culture - Final NO GROWTH AFTER 5 DAYS INCUBATION 04/02/16 05:35 Blood - Peripheral Venous Blood Culture - Final NO GROWTH AFTER 5 DAYS INCUBATION 03/31/16 05:27 Blood - Peripheral Venous Blood Culture - Final S Aureus CXR 04/04/16: A single view the chest again reveals a widened mediastinum with congestive changes, pleural fluid and possible basilar infiltrates and/or atelectasis. The patient is rotated to the left. CXR 04/03/16 Since 04/02/2016 at 0731 hours again noted is the large heart, unfolded aorta, congestive changes, widened mediastinum and pleural fluid. Since the prior study there is no significant change. ASSESSMENT/PLAN: 75 year old male with pmh of COPD, PVD, Chronic lower ext lymphadema, CAD with stent, CHF, CKD with baseline creatinine of 1.9, nephrolithiasis presented to the ED with complaint of shortness of breath and cellulitis, patient was fount to have acute hypercapneic respiratory failure and acute renal failure. on 03/28 pt started developing fever, chills and rigors, tachycardia, was treated with vancomycin, clindamycin and atreonam. On 03/29 further developed, pt was weak, sleepy, with fever, tachycardia, tachypnea and hypotension. Severe Sepsis from dialysis access r/o endocarditis blood culture, MRSA from permacath, peripheral draw from 03/28 to 03/31/16 WBC is trending down, no fever Pt is being treated with Vancomycin blood culture on 04/02/16 negative urine culture, negative Dr Armijo consulted Vanco level 17.88 repeat in am Aztreonam 0.5mg q8h IV Echocardiogram no Endocarditis lower ext erythema almost resolved. Acute hypercapneic and hypoxic respiratory failure with respitatory acidosis rt to COPD exacerbation and diastolic heart failure and pleural effusion and severe Sepsis Pt was intubated 03/29/16 in ICU, Now is extubated on 03/30/16 on venti-mask 40 % titrate down FiO2 On prednisone 30mg, consider decrease to 20 mg PO qd Continue bronchodilators Dialysis per renal negative fluid balance yesterday Liter On torsemide 40mg po QD Permacath removed, was the source for the MRSA bacteremia s/p Thoracentesis 03/21/16 and 03/07/16 Acute on Chronic kidney Injury Continue to monitor BUN and Cr Monitor intake and output Continue Phoslo Continue Calcitriol Dialysis per renal improving creatinine Normocytic anemia likely due to chronic disease and renal disease Continue to monitor CBC daily Current Hgb 8.3 PRN transfusion if Hbg less than 7 of if rapid drop and massive bleeding fecal occult blood positive, pt to follow up with GI once stable Thrombocytopenia (resolved) Hypertension Currently controlled on Norvasc Coronary artery disease s/p stenting on 03/2015 pt is on aspirin Po Constipation Pt is on Colace 100mg Po BID Pt is on miralax daily FEN Fluid: none Electrolytes: continue to monitor Nutrition: Diabetic low sodium diet Dvt prophylaxis: On heparin SQ Disposition: [facility] in am Visit type - Emergency Visit Emergency Visit: Yes ED Registration Date: 02/18/16 Care time: The patient presented to the Emergency Department on the above date and was hospitalized for further evaluation of their emergent condition. - New Patient This patient is new to me today: No - Critical Care Critical Care patient: No
[2016-04-11] MEDS: ACETAMINOPHEN 325 MG TABLET (FP) PO PRN (21:15)
[2016-04-12] MEDS ORDERED: PT OWN MED DRAWER 7, Y5N ONE ×2 (00:46→09:04)
[2016-04-12] MEDS: AZTREONAM 0.5 GM in DEXTROSE 5%-WATER - 50 ML IVPB SCH ×3 (02:25→17:49)
[2016-04-12] MEDS: HEPARIN NA (PORCINE) 5,000 UNITS/ML 1ML VIAL SQ SCH ×3 (06:05→22:54)
[2016-04-12] MEDS: ALBUTEROL SO4 2.5/IPRATROPIUM 0.5 INH SOL 3 ML VIAL.NEB. NEB SCH ×3 (06:38→18:12)
[2016-04-12 08:45] LABS: MCH 26.9 pg (25.7-33.7); MCHC 30.8 g/dl (32.0-35.9); MEAN CELL VOLUME 87.1 fl (80-96); MEAN PLT VOLUME 7.7 fl (7.5-11.1); PLATELET COUNT 299 K/MM3 (134-434); RDW 22.6 % (11.9-15.9)
[2016-04-12] MEDS ORDERED: PICC LINE 8 ML FLUSH PROTOCOL IVPUSH PRN (08:53)
[2016-04-12] MEDS: TORSEMIDE 20 MG TABLET (FP) PO SCH (09:15)
[2016-04-12] MEDS: ASPIRIN COATED 81 MG TABLET.EC PO SCH (09:15)
[2016-04-12] MEDS: PANTOPRAZOLE 40 MG TABLET (FP) PO SCH (09:15)
[2016-04-12] MEDS: DOCUSATE SODIUM 100 MG CAPSULE (FP) PO SCH ×2 (09:15→22:54)
[2016-04-12] MEDS: DULoxetine HCL 30 MG CAPSULE.DR (FP) PO SCH (09:15)
[2016-04-12] MEDS: amLODIPine BESYLATE 10 MG TABLET (FP) PO SCH (09:15)
[2016-04-12] MEDS: predniSONE 20 MG TABLET (UD) PO SCH (09:16)
[2016-04-12] MEDS: POLYETHYLENE GLYCOL 3350 119 GM BTL PO SCH (09:16)
--- NOTE | 2016-04-12 09:44 | PN ---
Progress Note, Physician Chief Complaint: no distress going to SNF today - Current Medication List Current Medications: Active Medications Acetaminophen (Tylenol -) 650 mg PO Q6H PRN PRN Reason: FEVER OR PAIN Last Admin: 04/11/16 21:15 Dose: 650 mg Albuterol Sulfate (Ventolin 0.042trength) -) 1 amp NEB Q6H PRN PRN Reason: SHORT OF BREATH/WHEEZING Last Admin: 04/09/16 21:27 Dose: 1 amp Albuterol/Ipratropium (Duoneb -) 1 amp NEB QIDR [facility] Last Admin: 04/12/16 06:38 Dose: 1 amp Amlodipine Besylate (Norvasc -) 10 mg PO DAILY [facility] Last Admin: 04/12/16 09:15 Dose: 10 mg Aspirin (Ecotrin -) 81 mg PO DAILY [facility] Last Admin: 04/12/16 09:15 Dose: 81 mg Docusate Sodium (Colace -) 100 mg PO BID [facility] Last Admin: 04/12/16 09:15 Dose: 100 mg Duloxetine HCl (Cymbalta -) 30 mg PO DAILY [facility] Last Admin: 04/12/16 09:15 Dose: 30 mg Epoetin Keith (Procrit -) 20,000 unit SQ MoWeFr@1000 [facility] Last Admin: 04/10/16 10:44 Dose: 20,000 unit Heparin Sodium (Porcine) (Heparin -) 5,000 unit SQ TID [facility] Last Admin: 04/12/16 06:05 Dose: 5,000 unit IV Flush (Picc Line Flush) 8 ml IVPUSH PRN PRN PRN Reason: Protocol Aztreonam 0.5 gm/ Dextrose 50 mls @ 100 mls/hr IVPB Q8H-IV [facility] Last Admin: 04/12/16 09:15 Dose: 100 mls/hr Pantoprazole Sodium (Protonix -) 40 mg PO DAILY [facility] Last Admin: 04/12/16 09:15 Dose: 40 mg Polyethylene Glycol (Miralax (For Daily Use) -) 17 gm PO DAILY [facility] Last Admin: 04/12/16 09:16 Dose: Not Given Prednisone (Deltasone -) 30 mg PO DAILY [facility] Last Admin: 04/12/16 09:16 Dose: 30 mg Sodium Chloride ([place] Nasal [place] -) 2 spray NS Q12H PRN PRN Reason: NASAL CONGESTION Torsemide (Demadex -) 40 mg PO DAILY [facility] Last Admin: 04/12/16 09:15 Dose: 40 mg Zinc Oxide/Panthenol/Vitamin E (Balmex Cream -) 1 applic TP ASDIR PRN PRN Reason: HYGEINE - Objective Vital Signs: Vital Signs Temperature 97.9 F 04/12/16 05:33 Pulse Rate 82 04/12/16 05:33 Respiratory Rate 18 04/12/16 05:33 Blood Pressure 150/72 04/12/16 05:33 O2 Sat by Pulse Oximetry (%) 98 04/11/16 23:19 Constitutional: Yes: No Distress Eyes: Yes: Conjunctiva Clear Cardiovascular: Yes: Regular Rate and Rhythm Respiratory: Yes: CTA Bilaterally Gastrointestinal: Yes: Soft, Abdomen, Obese Edema: No Neurological: Yes: Alert, Oriented Labs: CBC, BMP 04/12/16 08:00 04/10/16 07:20 INR, PTT INR 1.27 (0.82-1.09) H 03/30/16 05:20 Fibrinogen 547.0 mg/dL (238-498) H 03/17/16 06:30 Assessment/Plan IMP: Acute on chronic hypercarbic respiratory failure Chronic COPD Sepsis, gram + Bacteremia, infected HD catheter- removed ESRD CAD REC: Resp. failure: required intubation during admission -now extubated, s/p thoracentesis for pleural effusions -diuresing well now and has not required further HD, bun/creat trending down -Continue torsemide -bipap as needed -steroids as per pulm reccs Sepsis: -MRSA bacteremia; infected HD catheter removed. -Abx as per ID -TTE showed no evidence of endocarditis -would cont Abx and check routine surveillance cultures as per ID reccs -if felt that a YIMI would manager of change then can be performed but pt would likely require intubation for the procedure CAD: s/p PCI with stents this year -thrombocytopenia resolved -cont ASA 81mg daily Plans for discharge to SNF
--- NOTE | 2016-04-12 10:39 | DS ---
Physical Exam: SUBJECTIVE: Patient seen and examined Pt is in good mood today No s/s of acute distress no sob no fever, chills no cough no chest pain, palpitation no n/v OBJECTIVE: Vital Signs Period Temp Pulse Resp BP Sys/[place] Pulse Ox Last 24 Hr 97.9 F-98.3 F 82-94 18-20 122-150/63-76 91-98 PHYSICAL EXAM GENERAL: The patient is awake, alert oriented, in no distress. HEAD: Normal with no signs of trauma. EYES: PERRL, extraocular movements intact, sclera anicteric, conjunctiva clear. No ptosis. ENT: Ears normal, nares patent, oropharynx clear without exudates, dry mucous membranes. NECK: Trachea midline, full range of motion, supple. LUNGS:diminished with b/l crackles in lung bases. no wheezes, no accessory muscle used HEART: Regular rate and rhythm, S1, S2 without murmur, rub or gallop. ABDOMEN: Soft, nontender, nondistended, normoactive bowel sounds, no guarding, no rebound, no hepatosplenomegaly, no masses. EXTREMITIES: 2+ pulses, warm, well-perfused. b/l lower ext edema 1+ with wrinkle skin NEUROLOGICAL: gait not observed. Strength 5/5 in all ext PSYCH: anxious mood, normal affect. SKIN: Warm, dry, wrinkled skin in b/l lower ext, edema 1+ b/l lower ext. LABS Laboratory Results - last 24 hr 04/12/16 04/12/16 08:00 08:00 WBC 11.0 H RBC 3.18 L Hgb 8.5 L Hct 27.7 L MCV 87.1 MCHC 30.8 L RDW 22.6 H Plt Count 299 MPV 7.7 Random Vancomycin 15.486 CXR 04/09/15 Since 04/06/2016, again noted is the large heart, unfolded aorta and congestive changes with bilateral effusions and possibly basilar atelectasis or infiltrates. Follow-up recommended CXR 04/04/16: A single view the chest again reveals a widened mediastinum with congestive changes, pleural fluid and possible basilar infiltrates and/or atelectasis. The patient is rotated to the left. CXR 04/03/16 Since 04/02/2016 at 0731 hours again noted is the large heart, unfolded aorta, congestive changes, widened mediastinum and pleural fluid. Since the prior study there is no significant change. CXR 02/18/16 A rotated and lordotic portable chest film shows cardiomegaly and prominence the mediastinum as previously. There is no evidence of heart failure, acute infiltrate or pleural effusion seen. Renal ultrasound 02/18/16. The right kidney measures 12.7 cm in sagittal length with a partially exophytic cyst measuring 3 cm. Left kidney measures 10.2 cm in sagittal length and it appears unremarkable. Visualized portion of the liver appears unremarkable. CT chest 02/28/16: There are moderate bilateral pleural effusions with atelectatic changes involving both lower lobes. The upper lung rey are clear with scattered calcifications consistent with prior granulomatous disease. No pulmonary masses are identified. Examination of the mediastinum demonstrates no evidence of mediastinal masses, fluid collections or lymphadenopathy. The heart is not enlarged. Coronary artery calcification is present. The thoracic aorta is moderately ectatic with no significant aneurysmal dilatation. There is a subcutaneous nodule within the right anterior chest wall measuring 2.2 cm. Its etiology is uncertain. It could represent a sebaceous cyst. Clinical correlation is advised. Evaluation of the upper abdomen demonstrates no acute abnormalities. There is no evidence of acute bony abnormalities US thoracentesis Left 03/21/2016 Sonographic interrogation of the left chest demonstrates moderate amount of free fluid consistent with pleural effusion. Hardcopy images were obtained and sent to PACs. US thoracentesis Right 03/07/16 Sonographic interrogation of the chest demonstrates bilateral moderate amount of free fluid consistent with pleural effusion. Hardcopy images were obtained and sent to PACs. 03/29/16 CXR Status post intubation, the tip of ET tube above bifurcation of the trachea at the level of T4. Nasogastric tube extending below the EG junction over the region of the stomach. No evidence of pneumothorax. Bilateral pleural effusions. CBC, BMP 04/13/16 07:35 04/13/16 07:35 Microbiology 04/04/16 21:00 Chest Gram Stain - Final 04/04/16 21:00 Chest Wound Culture - Final Mr S Aureus Staphylococcus Coagulase Neg 04/02/16 05:35 Blood - Peripheral Venous Blood Culture - Final NO GROWTH AFTER 5 DAYS INCUBATION 04/02/16 05:35 Blood - Peripheral Venous Blood Culture - Final NO GROWTH AFTER 5 DAYS INCUBATION 03/31/16 05:27 Blood - Peripheral Venous Blood Culture - Final Mr S Aureus 03/31/16 05:27 Blood - Peripheral Venous Blood Culture - Final Mr S Aureus 03/29/16 10:10 Body Fluid - Other Gram Stain - Final 03/29/16 10:10 Body Fluid - Other Anaerobic Culture - Final Mr S Aureus NO ANAEROBES WERE ISOLATED 03/28/16 16:30 Blood - Peripheral Venous Blood Culture - Final Mr S Aureus 03/28/16 16:30 Blood - Peripheral Venous Blood Culture - Final Mr S Aureus 03/21/16 12:30 Pleural Fluid Gram Stain - Final 03/21/16 12:30 Pleural Fluid Anaerobic Culture - Final NO GROWTH OF AEROBIC ORGANISMS AFTER 48 HOURS INCUBATION NO ANAEROBES WERE ISOLATED 03/07/16 15:30 Pleural Fluid Gram Stain - Final 03/07/16 15:30 Pleural Fluid Anaerobic Culture - Final NO GROWTH OF AEROBIC ORGANISMS AFTER 48 HOURS INCUBATION NO ANAEROBES WERE ISOLATED 02/29/16 17:40 Nasopharyngeal Swab Respiratory Virus Panel - Final 02/18/16 19:15 Blood - Peripheral Venous Blood Culture - Final NO GROWTH AFTER 5 DAYS INCUBATION 02/18/16 19:15 Blood - Peripheral Venous Blood Culture - Final NO GROWTH AFTER 5 DAYS INCUBATION 02/18/16 18:10 Urine - Urine Clean Catch Urine Culture - Final NO GROWTH OBTAINED HOSPITAL COURSE: Date of Admission:02/18/16 Admission HPI 75 year-old man with a PMH of HTN, PVD, COPD, CKD (baseline Cr 1.9), nephrolithiasis, and chronic LE lymphedema. The patient was directed [facility] the [facility] for increased lethargy and decreased urination for several days. Patient stated that for the last 4 to 5 days he has been only voiding a little and it was dark urine. He denied hematuria and flank pain. He denied NSAID use or recent contrast exposure. He was on diuretics at home although his reported an 80lb weight gain over the past year which she attributes to water weight. Patient has had poor PO intake x 1 week. No n/v/d/ c. No f/s/c. ER course was notable for: (1) BUN/Cr 117/7.2; K 6.5 75 year old male with pmh of COPD, PVD, Chronic lower ext lymphadema, CAD with stent, CHF, CKD with baseline creatinine of 1.9, nephrolithiasis presented to the ED with complaint of shortness of breath and cellulitis, patient was fount to have acute hypercapneic respiratory failure and acute renal failure. Pt was placed in ICU, Immediate dialysis was started. Pt was transferred to the floor on 02/21/16 once improved. On 02/25/16 Dialysis session was completed and trialysis cath was removed. Pt continue to received antibiotics Clindamycin and aztreonam for cellulitis and steroid and bronchodilators for COPD exacerbation. Pt also was in diastolic CHF and had bilateral pleural effusion that required thoracentesis in left and right lungs. Pt was also found to be positive for RSV. As pt was getting more and more volume overloaded, dialysis was resumed. pt started developing fever, chills and rigors, tachycardia, was treated with vancomycin, clindamycin and Aztreonam. On 03/29 further developed, pt was weak, sleepy, with fever, tachycardia, tachypnea and hypotension. Pt was transferred to ICU were he was intubated. Blood culture was positive for MRSA from permacath, peripheral draw from 03/28 to 03/31/16. Pt was diagnosed with severe sepsis from MRSA bacteremia likley from dialysis catheter access vs lower ext cellulitis and Acute hypercapneic and hypoxic respiratory failure with respitatory acidosis rt to COPD exacerbation and diastolic heart failure and pleural effusion and severe Sepsis. Echocardiogram was negative for vegetation or endocarditis. Pt was treated with vanco and aztreonam, solumedrol , bronchodilators. As patient improved he was extubated (03/30/16), changed to prednisone PO, Vancomycin and bronchodilators were continued. Blood culture on 04/02/16 negative, urine culture, negative, daily vanco though level was done. Pt received daily lasix and maintained a negative fluid balance, it was later changed to Demadex to increase diuresis. Pt was later transferred back to the floor, KARLOS improved, Cellulitis resolved, lower ext edema improved, renal function improved, respiratory status improved. Pt was able to tolerate venti mask 40% on 8 liter and has been working with physical therapy to get out of bed and start walking again. Pt to be discharged to SNF. Date of Discharge: 04/12/16 Minutes to complete discharge: 45 Discharge Summary Reason For Visit: COPD EXACERBATION; ACUTE KIDNEY FAILURE Current Active Problems Acute and chronic respiratory failure ([id number]) (Acute) Acute exacerbation of chronic obstructive pulmonary disease (COPD) (Acute) Acute kidney failure (Acute) Acute on chronic diastolic (congestive) heart failure (Acute) Anxiety and depression (Acute) COPD exacerbation (Acute) Chronic kidney disease (CKD) stage G3a/A2, moderately decreased glomerular filtration rate (GFR) between 45-59 mL/min/1.73 square meter and albuminuria creatinine ratio between 30-299 mg/g (Acute) Hematoma (Acute) Condition: Critical - Instructions Diet, Activity, Other Instructions: Discharge to SNF Resume diabetic diet Continue vancomycin 1gm IV daily, Hold for vanco through more than 20 Vanco through daily before vancomycin dose CBC, BMP, phos, Mg twice weekly, first lab draw 04/15/15 Aztreonam 0.5gm q8h IV for 9 doses Epogen 87815 Units sq 3 times per week on Sunday, Sunday, Sunday for 4 weeks Pt will be followed by renal Dr Johnson Pt will be followed by Dr Szymanski Infectious disease Referrals: Bárbara Szymanski MD [Staff Physician] - Dax Chadwick MD [Staff Physician] - Alejandro Sotomayor MD [Primary Care Provider] - Melvin Johnson MD [Staff Physician] - Disposition: HALFWAY FACILITY - Home Medications Comprehensive Discharge Medication List: Ambulatory Orders Acetaminophen W/ Codeine #3 [Tylenol # 3 -] 1 tab PO Q6H PRN 02/18/16 Albuterol 0.083% Nebulizer Soni [Ventolin 0.083% Nebulizer Soln -] 1 amp NEB ASDIR PRN 02/18/16 Aspirin [Ecotrin] 81 mg PO DAILY 02/18/16 Duloxetine HCl 20 mg PO DAILY 02/18/16 Prasugrel HCl [Effient] 10 mg PO DAILY 02/18/16 Pregabalin [Lyrica] 25 mg PO DAILY 02/18/16 Acetaminophen [Tylenol .Regular Strength -] 650 mg PO Q6H PRN #0 tablet Amlodipine Besylate [Norvasc -] 10 mg PO DAILY #30 tablet 04/12/16 Aztreonam [Azactam (Restricted To Id) -] 0.5 gm IVPB Q8H-IV #9 vial 04/12/16 Docusate Sodium [Colace -] 100 mg PO BID #60 capsule 04/12/16 Duloxetine HCl [Cymbalta -] 30 mg PO DAILY #30 capsule. 04/12/16 Epoetin Keith [Procrit -] 20,000 unit SQ MoWeFr@1000 ml 04/12/16 Pantoprazole Sodium [Protonix -] 40 mg PO DAILY tablet.ec 04/12/16 Picc Line Flush [Picc Line Flush -] 8 ml IVPUSH PRN PRN #0 ml 04/12/16 Polyethylene Glycol 3350 [Miralax 119 gm Btl -] 17 gm PO DAILY #1 bottle Sodium Chloride Nasal [place] [[place] Nasal Sterling -] 2 spray NS Q12H PRN #0 bottle 04/12/16 Torsemide [Demadex -] 40 mg PO DAILY #30 tablet 04/12/16 Vancomycin/0.9 % Sod Chloride [Vanco 1 Gram/250 ml-0.9% NaCl] 1 gm IV DAILY #21 plast..bag 04/12/16 This patient is new to me today: No Emergency Visit: Yes ED Registration Date: 02/18/16 Care time: The patient presented to the Emergency Department on the above date and was hospitalized for further evaluation of their emergent condition. Critical Care patient: No - Discharge Referral Referred to [facility] Med P.C.: No
--- NOTE | 2016-04-12 10:58 | PN ---
Teaching Attending Note Name of Resident: Zachery Blum ATTENDING PHYSICIAN STATEMENT I saw and evaluated the patient. I reviewed the resident's note and discussed the case with the resident. I agree with the resident's findings and plan as documented. SUBJECTIVE: PaTient went for Picc line placement. Denies any chest pain or palpitation. breathing better. OBJECTIVE: Vital Signs Temperature 98.3 F 04/12/16 09:00 Pulse Rate 88 04/12/16 10:08 Respiratory Rate 18 04/12/16 09:00 Blood Pressure 148/76 04/12/16 09:00 O2 Sat by Pulse Oximetry (%) 93 L 04/12/16 10:08 GENERAL: Patient is AA0x3, HEAD: Normal with no signs of trauma. EYES: PERRL, extraocular movements intact, sclera anicteric, conjunctiva clear. ENT: Ears normal, oropharynx clear without exudates, moist mucous membranes. NECK: Trachea midline, full range of motion, supple. LUNGS: decreased BS at the basis , on VM, No wheezing or palpitations HEART: Regular rate and rhythm, S1, S2 positive, MEERA 2/6 ABDOMEN: Soft, large abdomen ,obese, nontender, nondistended, normoactive bowel sounds, no guarding, no rebound. EXTREMITIES: 2+ pulses, warm, 2 plus edema b/l NEUROLOGICAL: CN 2-12 grossly intact . PSYCH:AAOx3 , Alert awake SKIN: bilat. lower ext. stasis dermatitis. CBCD WBC 11.0 K/mm3 (4.0-10.0) H 04/12/16 08:00 RBC 3.18 M/mm3 (4.00-5.60) L 04/12/16 08:00 Hgb 8.5 GM/dL (11.7-16.9) L 04/12/16 08:00 Hct 27.7 % (35.4-49) L 04/12/16 08:00 MCV 87.1 fl (80-96) 04/12/16 08:00 MCHC 30.8 g/dl (32.0-35.9) L 04/12/16 08:00 RDW 22.6 % (11.9-15.9) H 04/12/16 08:00 Plt Count 299 K/MM3 (134-434) 04/12/16 08:00 MPV 7.7 fl (7.5-11.1) 04/12/16 08:00 CMP Sodium 144 mmol/L (136-145) 04/10/16 07:20 Potassium 4.1 mmol/L (3.5-5.1) 04/10/16 07:20 Chloride 102 mmol/L (98-107) 04/10/16 07:20 Carbon Dioxide 33 mmol/L (21-32) H 04/10/16 07:20 Anion Gap 9 (8-16) 04/10/16 07:20 BUN 32 mg/dL (7-18) H 04/10/16 07:20 Creatinine 1.6 mg/dL (0.7-1.3) H 04/10/16 07:20 Creat Clearance w eGFR 42.58 (>60) 04/10/16 07:20 Random Glucose 86 mg/dL (74-106) 04/10/16 07:20 Calcium 7.6 mg/dL (8.5-10.1) L 04/10/16 07:20 Total Bilirubin 0.7 mg/dL (0.2-1.0) D 04/10/16 07:20 AST 18 U/L (15-37) 04/10/16 07:20 ALT 16 U/L (12-78) 04/10/16 07:20 Alkaline Phosphatase 88 U/L (45-117) 04/10/16 07:20 Total Protein 5.5 g/dl (6.4-8.2) L 04/10/16 07:20 Albumin 2.4 g/dl (3.4-5.0) L 04/10/16 07:20 CARDIAC ENZYMES Creatine Kinase 20 IU/L (39-308) L 03/29/16 07:37 Troponin I < 0.02 ng/ml (0.00-0.05) 03/29/16 07:37 Current Medications Generic Name Dose Route Start Last Admin Trade Name Freq PRN Reason Stop Dose Admin Acetaminophen 650 mg 04/03/16 20:06 04/11/16 21:15 Tylenol - PO 650 mg Q6H PRN Administration FEVER OR PAIN Albuterol Sulfate 1 amp 04/03/16 20:06 04/09/16 21:27 Ventolin 0.042trength) - NEB 1 amp Q6H PRN Administration SHORT OF BREATH/WHEEZING Albuterol/Ipratropium 1 amp 04/04/16 00:00 04/12/16 06:38 Duoneb - NEB 1 amp QIDR LESLEE Administration Amlodipine Besylate 10 mg 04/04/16 10:00 04/12/16 09:15 Norvasc - PO 10 mg DAILY LESLEE Administration Aspirin 81 mg 04/04/16 10:00 04/12/16 09:15 Ecotrin - PO 81 mg DAILY LESLEE Administration Docusate Sodium 100 mg 04/03/16 22:00 04/12/16 09:15 Colace - PO 100 mg BID LESLEE Administration Duloxetine HCl 30 mg 04/08/16 10:00 04/12/16 09:15 Cymbalta - PO 30 mg DAILY LESLEE Administration Epoetin Keith 20,000 unit 04/05/16 10:00 04/10/16 10:44 Procrit - SQ 20,000 unit MoWeFr@1000 LESLEE Administration Heparin Sodium (Porcine) 5,000 unit 04/03/16 22:00 04/12/16 06:05 Heparin - SQ 5,000 unit TID LESLEE Administration IV Flush 8 ml 04/12/16 08:53 Picc Line Flush IVPUSH PRN PRN Protocol Aztreonam 0.5 gm/ Dextrose 50 mls @ 100 mls/hr 04/09/16 14:30 04/12/16 09:15 IVPB 100 mls/hr Q8H-IV LESLEE Administration Vancomycin HCl 250 mls @ 250 mls/hr 04/12/16 13:00 Vancomycin (Pre-Docked) IVPB 04/12/16 13:59 ONCE ONE Pantoprazole Sodium 40 mg 04/08/16 11:15 04/12/16 09:15 Protonix - PO 40 mg DAILY LESLEE Administration Polyethylene Glycol 17 gm 04/04/16 10:00 04/12/16 09:16 Miralax (For Daily Use) - PO Not Given DAILY LESLEE Prednisone 30 mg 04/09/16 10:00 04/12/16 09:16 Deltasone - PO 30 mg DAILY LESLEE Administration Sodium Chloride 2 spray 04/03/16 20:06 [place] Nasal [place] - NS Q12H PRN NASAL CONGESTION Torsemide 40 mg 04/11/16 10:00 04/12/16 09:15 Demadex - PO 40 mg DAILY LESLEE Administration Zinc Oxide/Panthenol/Vitamin E 1 applic 04/03/16 20:06 Balmex Cream - TP ASDIR PRN HYGEINE Medication Instructions Recorded Acetaminophen W/ Codeine #3 1 tab PO Q6H PRN 02/18/16 [Tylenol # 3 -] Albuterol 0.083% Nebulizer Soni 1 amp NEB ASDIR PRN 02/18/16 [Ventolin 0.083% Nebulizer Soln -] Aspirin [Ecotrin] 81 mg PO DAILY 02/18/16 Duloxetine HCl 20 mg PO DAILY 02/18/16 Prasugrel HCl [Effient] 10 mg PO DAILY 02/18/16 Pregabalin [Lyrica] 25 mg PO DAILY 02/18/16 Acetaminophen [Tylenol .Regular 650 mg PO Q6H PRN #0 tablet 04/12/16 Strength -] Amlodipine Besylate [Norvasc -] 10 mg PO DAILY #30 tablet 04/12/16 Aztreonam [Azactam (Restricted To 0.5 gm IVPB Q8H-IV #9 vial 04/12/16 Id) -] Docusate Sodium [Colace -] 100 mg PO BID #60 capsule 04/12/16 Duloxetine HCl [Cymbalta -] 30 mg PO DAILY #30 capsule. 04/12/16 Epoetin Keith [Procrit -] 20,000 unit SQ MoWeFr@1000 ml 04/12/16 Pantoprazole Sodium [Protonix -] 40 mg PO DAILY tablet.ec 04/12/16 Picc Line Flush [Picc Line Flush -] 8 ml IVPUSH PRN PRN #0 ml 04/12/16 Polyethylene Glycol 3350 [Miralax 17 gm PO DAILY #1 bottle 04/12/16 119 gm Btl -] Sodium Chloride Nasal [place] [[place] 2 spray NS Q12H PRN #0 bottle 04/12/16 [place] Nasal [place] -] Torsemide [Demadex -] 40 mg PO DAILY #30 tablet 04/12/16 Vancomycin/0.9 % Sod Chloride 1 gm IV DAILY #21 plast..bag 04/12/16 [Vanco 1 Gram/250 ml-0.9% NaCl] ASSESSMENT AND PLAN: 75 year-old man with a PMHx of HTN, PVD, COPD, CKD (baseline Cr 1.8), nephrolithiasis, D CHF , CAD s/p stenting in 03/23 and chronic LE lymphedema. presented with SOB and was found to have acute hypercapnic respiratory failure with acute renal failure . 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 # ESRD on HD further management per nephro on cacitriol and phoslo; patient has no access for HD at this time, But his Kidney function is improving, Off dialysis now, Procrit as per Alex # Cellultis of LE : improved on Antibiotics, vancomycin on hold since random level is 23 # Anemia secondary to chronic kidney disease s/p transfusion. cont to monitor. Transfuse PRN ,Continue Procrit as per , Wally; t # s/p Thrombocytopenia: improved # HTN: cont norvasc # CAD : s/p Stenting 03/23 on Asa. #Obesity with BMI 37.4 #Constipation Continue Colace, Miralax DVT Px; heparin
--- NOTE | 2016-04-12 12:20 | PN ---
Progress Note, Physician History of Present Illness: Pt less dyspneic. No complaints at present. Pt seen in radiology prior to placement tunnel catheter - Current Medication List Current Medications: Active Medications Acetaminophen (Tylenol -) 650 mg PO Q6H PRN PRN Reason: FEVER OR PAIN Last Admin: 04/11/16 21:15 Dose: 650 mg Albuterol Sulfate (Ventolin 0.042trength) -) 1 amp NEB Q6H PRN PRN Reason: SHORT OF BREATH/WHEEZING Last Admin: 04/09/16 21:27 Dose: 1 amp Albuterol/Ipratropium (Duoneb -) 1 amp NEB QIDR [facility] Last Admin: 04/12/16 12:05 Dose: Not Given Amlodipine Besylate (Norvasc -) 10 mg PO DAILY [facility] Last Admin: 04/12/16 09:15 Dose: 10 mg Aspirin (Ecotrin -) 81 mg PO DAILY [facility] Last Admin: 04/12/16 09:15 Dose: 81 mg Docusate Sodium (Colace -) 100 mg PO BID [facility] Last Admin: 04/12/16 09:15 Dose: 100 mg Duloxetine HCl (Cymbalta -) 30 mg PO DAILY [facility] Last Admin: 04/12/16 09:15 Dose: 30 mg Epoetin Keith (Procrit -) 20,000 unit SQ MoWeFr@1000 [facility] Last Admin: 04/10/16 10:44 Dose: 20,000 unit Heparin Sodium (Porcine) (Heparin -) 5,000 unit SQ TID [facility] Last Admin: 04/12/16 06:05 Dose: 5,000 unit IV Flush (Picc Line Flush) 8 ml IVPUSH PRN PRN PRN Reason: Protocol Aztreonam 0.5 gm/ Dextrose 50 mls @ 100 mls/hr IVPB Q8H-IV [facility] Last Admin: 04/12/16 09:15 Dose: 100 mls/hr Vancomycin HCl (Vancomycin (Pre-Docked)) 250 mls @ 250 mls/hr IVPB ONCE ONE Stop: 04/12/16 13:59 Pantoprazole Sodium (Protonix -) 40 mg PO DAILY [facility] Last Admin: 04/12/16 09:15 Dose: 40 mg Polyethylene Glycol (Miralax (For Daily Use) -) 17 gm PO DAILY [facility] Last Admin: 01/04/17 09:16 Dose: Not Given Prednisone (Deltasone -) 30 mg PO DAILY [facility] Last Admin: 04/12/16 09:16 Dose: 30 mg Sodium Chloride (Perrin Joanna Nasal Joanna -) 2 spray NS Q12H PRN PRN Reason: NASAL CONGESTION Torsemide (Demadex -) 40 mg PO DAILY [facility] Last Admin: 04/12/16 09:15 Dose: 40 mg Zinc Oxide/Panthenol/Vitamin E (Balmex Cream -) 1 applic TP ASDIR PRN PRN Reason: HYGEINE - Objective Vital Signs: Vital Signs Temperature 98.3 F 04/12/16 09:00 Pulse Rate 88 04/12/16 10:08 Respiratory Rate 18 04/12/16 09:00 Blood Pressure 148/76 04/12/16 09:00 O2 Sat by Pulse Oximetry (%) 93 L 04/12/16 10:08 Constitutional: No: No Distress Eyes: No: Sclera Icterus HENT: Yes: Atraumatic, Normocephalic Neck: Yes: Supple, Trachea Midline Cardiovascular: Yes: Regular Rate and Rhythm. No: JVD Respiratory: Yes: Diminished (bilateral) Gastrointestinal: Yes: Soft. No: Tenderness Edema: No Neurological: Yes: Alert, Oriented Labs: CBC, BMP 04/12/16 08:00 04/10/16 07:20 INR, PTT INR 1.27 (0.82-1.09) H 03/30/16 05:20 Fibrinogen 547.0 mg/dL (238-498) H 03/17/16 06:30 Problem List - Problems (1) COPD exacerbation Code(s): J44.1 - CHRONIC OBSTRUCTIVE PULMONARY DISEASE W (ACUTE) EXACERBATION (2) Acute and chronic respiratory failure ([id number]) Code(s): J96.20 - ACUTE AND CHR RESP FAILURE, UNSP W HYPOXIA OR HYPERCAPNIA Qualifiers: Respiratory failure complication: hypoxia and hypercapnia Qualified Code(s): J96.21 - Acute and chronic respiratory failure with hypoxia (3) Acute kidney failure Code(s): N17.9 - ACUTE KIDNEY FAILURE, UNSPECIFIED Qualifiers: Acute renal failure type: unspecified Qualified Code(s): N17.9 - Acute kidney failure, unspecified (4) Chronic kidney disease (CKD) Code(s): N18.9 - CHRONIC KIDNEY DISEASE, UNSPECIFIED Qualifiers: Chronic kidney disease stage: unspecified stage Qualified Code(s): N18.9 - Chronic kidney disease, unspecified (5) Cellulitis Code(s): L03.90 - CELLULITIS, UNSPECIFIED Qualifiers: Site of cellulitis of extremity: lower extremity (6) Hyperkalemia Code(s): E87.5 - HYPERKALEMIA (7) Arteriosclerotic heart disease (ASHD) Code(s): I25.10 - ATHSCL HEART DISEASE OF [place] CORONARY ARTERY W/O ANG PCTRS (8) Obesities, morbid Code(s): E66.01 - MORBID (SEVERE) OBESITY DUE TO EXCESS CALORIES Qualifiers: Obesity type: with alveolar hypoventilation Qualified Code(s): E66.2 - Morbid (severe) obesity with alveolar hypoventilation Assessment/Plan Acute on Chronic Respiratory failure:improved. Remains O2 dependent Sepsis-MRSA: on antibiotics. Latest blood cultures: no growth COPD Exacerbation-steroids being tapered slowly Acute on Chronic Respiratory Failure Morbid Obesity Acute and Chronic Renal Failure: improved. Renal function continues to improve. Creat 1.6 ASHD CHF- increased Plan: BiPAP PRN Antibiotic per I.D. Inhaled bronchodilators Prednisone taper-pt was on maintenance dose of 10 mg daily prior to hospitalization Diuretic dose as adjusted by shellacker. O2 to maintain SaO2>90 Bedside PT. Discharge planning-pt may be discharged today to Rehab. IV antibiotics and P.T. to be completed at Rehab.
[2016-04-12] MEDS: EPOETIN ALFA 20,000 UNIT/1 ML VIAL SQ SCH (12:54)
[2016-04-12] MEDS ORDERED: VANCOMYCIN 1 GRAM (PRE-DOCKED) 250 ML IVPB ONE (13:00)
[2016-04-12] MEDS: ALBUTEROL SO4 0.042% IH SOL 1.25 MG/3 ML VIAL.NEB NEB PRN (13:09)
--- NOTE | 2016-04-12 15:45 | PN ---
Progress Note (short form) - Note Progress Note: Renal Follow up for KARLOS For discharge to [facility] today Vital Signs Temperature 98.0 F 04/12/16 13:50 Pulse Rate 92 H 04/12/16 13:50 Respiratory Rate 22 04/12/16 13:50 Blood Pressure 148/76 04/12/16 09:00 O2 Sat by Pulse Oximetry (%) 93 L 04/12/16 13:50 Gen: NAD CVS: RRR No M/R Lungs: dec BS throughout the lung rey Abd: Soft NT + Mild distension Ext: 1+ edema CBC, BMP 04/12/16 08:00 04/10/16 07:20 Current Medications Acetaminophen (Tylenol -) 650 mg PO Q6H PRN PRN Reason: FEVER OR PAIN Last Admin: 04/11/16 21:15 Dose: 650 mg Albuterol Sulfate (Ventolin 0.042trength) -) 1 amp NEB Q6H PRN PRN Reason: SHORT OF BREATH/WHEEZING Last Admin: 04/12/16 13:09 Dose: 1 amp Albuterol/Ipratropium (Duoneb -) 1 amp NEB QIDR [facility] Last Admin: 04/12/16 12:05 Dose: Not Given Amlodipine Besylate (Norvasc -) 10 mg PO DAILY [facility] Last Admin: 04/12/16 09:15 Dose: 10 mg Aspirin (Ecotrin -) 81 mg PO DAILY [facility] Last Admin: 04/12/16 09:15 Dose: 81 mg Docusate Sodium (Colace -) 100 mg PO BID [facility] Last Admin: 04/12/16 09:15 Dose: 100 mg Duloxetine HCl (Cymbalta -) 30 mg PO DAILY [facility] Last Admin: 04/12/16 09:15 Dose: 30 mg Epoetin Keith (Procrit -) 20,000 unit SQ MoWeFr@1000 [facility] Last Admin: 04/12/16 12:54 Dose: 20,000 unit Heparin Sodium (Porcine) (Heparin -) 5,000 unit SQ TID [facility] Last Admin: 04/12/16 14:55 Dose: Not Given IV Flush (Picc Line Flush) 8 ml IVPUSH PRN PRN PRN Reason: Protocol Aztreonam 0.5 gm/ Dextrose 50 mls @ 100 mls/hr IVPB Q8H-IV [facility] Last Admin: 04/12/16 09:15 Dose: 100 mls/hr Pantoprazole Sodium (Protonix -) 40 mg PO DAILY [facility] Last Admin: 04/12/16 09:15 Dose: 40 mg Polyethylene Glycol (Miralax (For Daily Use) -) 17 gm PO DAILY [facility] Last Admin: 04/12/16 09:16 Dose: Not Given Prednisone (Deltasone -) 30 mg PO DAILY [facility] Last Admin: 04/12/16 09:16 Dose: 30 mg Sodium Chloride ([place] Nasal [place] -) 2 spray NS Q12H PRN PRN Reason: NASAL CONGESTION Torsemide (Demadex -) 40 mg PO DAILY [facility] Last Admin: 04/12/16 09:15 Dose: 40 mg Zinc Oxide/Panthenol/Vitamin E (Balmex Cream -) 1 applic TP ASDIR PRN PRN Reason: HYGEINE A/P 75 year old Gentleman with PMhx of CKD Stage 3 (baseline Cr 1.9), Hx of Nephrolithiasis, Hypertension, COPD, CHF, PVD, Chronic LE lymph edema who was sent into the ED from wound care for increased lethargy and decreased urination for several days with KARLOS with BUN/Cr of 115/7.2 and K of 6.5 #Acute on Chronic Renal failure with volume overload Renal function improved and stable Continue Torsemide 40mg Daily Repeat BMP in 2-3 days as outpatient Fluid restriction 1.5 L daily #MSSA Bactermia continue Abx as ID Will follow up in Rehab Melvin Johnson DO
--- NOTE | 2016-04-12 16:52 | PN ---
Progress Note, Physician History of Present Illness: patient stable no new events picc line placed - Current Medication List Current Medications: Active Medications Acetaminophen (Tylenol -) 650 mg PO Q6H PRN PRN Reason: FEVER OR PAIN Last Admin: 04/11/16 21:15 Dose: 650 mg Albuterol Sulfate (Ventolin 0.042trength) -) 1 amp NEB Q6H PRN PRN Reason: SHORT OF BREATH/WHEEZING Last Admin: 04/12/16 13:09 Dose: 1 amp Albuterol/Ipratropium (Duoneb -) 1 amp NEB QIDR [facility] Last Admin: 04/12/16 12:05 Dose: Not Given Amlodipine Besylate (Norvasc -) 10 mg PO DAILY [facility] Last Admin: 04/12/16 09:15 Dose: 10 mg Aspirin (Ecotrin -) 81 mg PO DAILY [facility] Last Admin: 04/12/16 09:15 Dose: 81 mg Docusate Sodium (Colace -) 100 mg PO BID [facility] Last Admin: 04/12/16 09:15 Dose: 100 mg Duloxetine HCl (Cymbalta -) 30 mg PO DAILY [facility] Last Admin: 04/12/16 09:15 Dose: 30 mg Epoetin Keith (Procrit -) 20,000 unit SQ MoWeFr@1000 [facility] Last Admin: 04/12/16 12:54 Dose: 20,000 unit Heparin Sodium (Porcine) (Heparin -) 5,000 unit SQ TID [facility] Last Admin: 04/12/16 14:55 Dose: Not Given IV Flush (Picc Line Flush) 8 ml IVPUSH PRN PRN PRN Reason: Protocol Aztreonam 0.5 gm/ Dextrose 50 mls @ 100 mls/hr IVPB Q8H-IV [facility] Last Admin: 04/12/16 09:15 Dose: 100 mls/hr Pantoprazole Sodium (Protonix -) 40 mg PO DAILY [facility] Last Admin: 04/12/16 09:15 Dose: 40 mg Polyethylene Glycol (Miralax (For Daily Use) -) 17 gm PO DAILY [facility] Last Admin: 04/12/16 09:16 Dose: Not Given Prednisone (Deltasone -) 30 mg PO DAILY [facility] Last Admin: 04/12/16 09:16 Dose: 30 mg Sodium Chloride ([place] Nasal [place] -) 2 spray NS Q12H PRN PRN Reason: NASAL CONGESTION Torsemide (Demadex -) 40 mg PO DAILY [facility] Last Admin: 04/12/16 09:15 Dose: 40 mg Zinc Oxide/Panthenol/Vitamin E (Balmex Cream -) 1 applic TP ASDIR PRN PRN Reason: HYGEINE - Objective Vital Signs: Vital Signs Temperature 98.0 F 04/12/16 13:50 Pulse Rate 92 H 04/12/16 13:50 Respiratory Rate 22 04/12/16 13:50 Blood Pressure 148/76 04/12/16 09:00 O2 Sat by Pulse Oximetry (%) 93 L 04/12/16 13:50 Constitutional: Yes: No Distress, Calm Cardiovascular: Yes: Regular Rate and Rhythm Respiratory: Yes: Regular, Poor Air Entry Gastrointestinal: Yes: Normal Bowel Sounds, Soft Musculoskeletal: Yes: Other Extremities: Yes: Other Edema: LLE: 1+, RLE: 1+ Neurological: Yes: Alert, Oriented Psychiatric: Yes: Alert Labs: CBC, BMP 04/12/16 08:00 04/10/16 07:20 INR, PTT INR 1.27 (0.82-1.09) H 03/30/16 05:20 Fibrinogen 547.0 mg/dL (238-498) H 03/17/16 06:30 Assessment/Plan 75 year-old man with a PMH of HTN, PVD, COPD, CKD (baseline Cr 1.9), nephrolithiasis, and chronic LE lymphedema. Admitted in acute renal failure. Acute on chronic renal failure Hyperkalemia Sepsis s Hypertension Peripheral vascular disease Hypercarbic respiratory failure COPD bilateral cellulitis of the legs rsv lung infection pleural effusion anemia fevers gm positive bacteremia mrsa bacteremia plan wbc trending down continue current mgtm continue abx resp physio can stop azactam after 3 more days follow vanco levels cbc cmp twice a week vanco total of 4 weeks
[2016-04-13] MEDS: ALBUTEROL SO4 2.5/IPRATROPIUM 0.5 INH SOL 3 ML VIAL.NEB. NEB SCH ×4 (00:05→17:55)
[2016-04-13] MEDS: AZTREONAM 0.5 GM in DEXTROSE 5%-WATER - 50 ML IVPB SCH ×3 (01:36→17:11)
[2016-04-13] MEDS: HEPARIN NA (PORCINE) 5,000 UNITS/ML 1ML VIAL SQ SCH ×2 (06:30→14:18)
[2016-04-13] MEDS: ALBUTEROL SO4 0.042% IH SOL 1.25 MG/3 ML VIAL.NEB NEB PRN ×2 (07:19→16:29)
[2016-04-13 08:10] LABS: MCH 26.9 pg (25.7-33.7); MEAN CELL VOLUME 86.8 fl (80-96); MEAN PLT VOLUME 7.6 fl (7.5-11.1); PLATELET COUNT 264 K/MM3 (134-434); RDW 22.5 % (11.9-15.9); WHITE BLOOD COUNT 9.2 K/mm3 (4.0-10.0)
[2016-04-13 08:27] LABS: CALCIUM 7.6 mg/dL (8.5-10.1); CREATININE 1.6 mg/dL (0.7-1.3); PHOSPHOROUS 3.6 mg/dL (2.5-4.9)
[2016-04-13] MEDS ORDERED: PT OWN MED DRAWER 7, Y5N ONE ×2 (09:23→16:27)
[2016-04-13] MEDS: DULoxetine HCL 30 MG CAPSULE.DR (FP) PO SCH (09:34)
[2016-04-13] MEDS: predniSONE 20 MG TABLET (UD) PO SCH (09:34)
[2016-04-13] MEDS: DOCUSATE SODIUM 100 MG CAPSULE (FP) PO SCH (09:34)
[2016-04-13] MEDS: TORSEMIDE 20 MG TABLET (FP) PO SCH (09:35)
[2016-04-13] MEDS: POLYETHYLENE GLYCOL 3350 119 GM BTL PO SCH (09:36)
[2016-04-13] MEDS: ASPIRIN COATED 81 MG TABLET.EC PO SCH (09:36)
[2016-04-13] MEDS: amLODIPine BESYLATE 10 MG TABLET (FP) PO SCH (09:37)
[2016-04-13] MEDS: PANTOPRAZOLE 40 MG TABLET (FP) PO SCH (09:37)
[2016-04-13 09:49] VITALS: BP 124/82
[2016-04-13 13:39] VITALS: PULSE 97; TEMP 98.1
--- NOTE | 2016-04-13 15:02 | PN ---
Progress Note (short form) - Note Progress Note: Renal Follow up for KARLOS Pt seen and examined in the radiology suite No acute complaints had bleeding from picc line site yesterday and picc line unable to be flushed denies any sob or chest pain awaiting discharge Vital Signs Temperature 98.1 F 04/13/16 13:37 Pulse Rate 97 H 04/13/16 13:37 Respiratory Rate 20 04/13/16 13:37 Blood Pressure 124/82 04/13/16 09:00 O2 Sat by Pulse Oximetry (%) 93 L 04/12/16 21:00 Intake & Output 04/10/16 04/11/16 04/12/16 04/13/16 23:59 23:59 23:59 23:59 Intake Total 1095 550 900 850 Output Total 1300 3000 2700 1450 Balance -205 -2450 -1800 -600 Weight 240 lb 4 oz 237 lb 5 oz 236 lb 2 oz 234 lb 6 oz Gen: NAD CVS: RRR No M/R Lungs: CTA Abd: Soft NT Ext: 1+ edema CBC, BMP 04/13/16 07:35 04/13/16 07:35 Current Medications Acetaminophen (Tylenol -) 650 mg PO Q6H PRN PRN Reason: FEVER OR PAIN Last Admin: 04/11/16 21:15 Dose: 650 mg Albuterol Sulfate (Ventolin 0.042trength) -) 1 amp NEB Q6H PRN PRN Reason: SHORT OF BREATH/WHEEZING Last Admin: 04/12/16 13:09 Dose: 1 amp Albuterol/Ipratropium (Duoneb -) 1 amp NEB QIDR [facility] Last Admin: 04/13/16 11:10 Dose: 1 amp Amlodipine Besylate (Norvasc -) 10 mg PO DAILY [facility] Last Admin: 04/13/16 09:37 Dose: 10 mg Aspirin (Ecotrin -) 81 mg PO DAILY [facility] Last Admin: 04/13/16 09:36 Dose: 81 mg Docusate Sodium (Colace -) 100 mg PO BID [facility] Last Admin: 04/13/16 09:34 Dose: Not Given Duloxetine HCl (Cymbalta -) 30 mg PO DAILY [facility] Last Admin: 04/13/16 09:34 Dose: 30 mg Epoetin Keith (Procrit -) 20,000 unit SQ MoWeFr@1000 [facility] Last Admin: 04/12/16 12:54 Dose: 20,000 unit Heparin Sodium (Porcine) (Heparin -) 5,000 unit SQ TID [facility] Last Admin: 04/13/16 14:18 Dose: Not Given IV Flush (Picc Line Flush) 8 ml IVPUSH PRN PRN PRN Reason: Protocol Aztreonam 0.5 gm/ Dextrose 50 mls @ 100 mls/hr IVPB Q8H-IV [facility] Last Admin: 04/13/16 09:33 Dose: 100 mls/hr Pantoprazole Sodium (Protonix -) 40 mg PO DAILY [facility] Last Admin: 04/13/16 09:37 Dose: 40 mg Polyethylene Glycol (Miralax (For Daily Use) -) 17 gm PO DAILY [facility] Last Admin: 04/13/16 09:36 Dose: Not Given Prednisone (Deltasone -) 30 mg PO DAILY [facility] Last Admin: 04/13/16 09:34 Dose: 30 mg Sodium Chloride ([place] Nasal [place] -) 2 spray NS Q12H PRN PRN Reason: NASAL CONGESTION Torsemide (Demadex -) 40 mg PO DAILY [facility] Last Admin: 04/13/16 09:35 Dose: 40 mg Zinc Oxide/Panthenol/Vitamin E (Balmex Cream -) 1 applic TP ASDIR PRN PRN Reason: HYGEINE A/P 75 year old Gentleman with PMhx of CKD Stage 3 (baseline Cr 1.9), Hx of Nephrolithiasis, Hypertension, COPD, CHF, PVD, Chronic LE lymph edema who was sent into the ED from wound care for increased lethargy and decreased urination for several days with KARLOS with BUN/Cr of 115/7.2 and K of 6.5 #Acute on Chronic Renal failure with volume overload Renal function improved and stable No need for any further dialysis Volume status/Weights improved on Torsemide 40mg Daily - continue for now Check CMP in 2-3 days as outpatient #MSSA Bactermia to continue Vanco via picc line as per ID f/u Vanco levels and titrate dose accordingly Thank you Will follow up in Rehab Melvin Johnson DO
--- NOTE | 2016-04-13 17:29 | PN ---
Progress Note, Physician History of Present Illness: patient stable no new events picc line placed and adjusted - Current Medication List Current Medications: Active Medications Acetaminophen (Tylenol -) 650 mg PO Q6H PRN PRN Reason: FEVER OR PAIN Last Admin: 04/11/16 21:15 Dose: 650 mg Albuterol Sulfate (Ventolin 0.042trength) -) 1 amp NEB Q6H PRN PRN Reason: SHORT OF BREATH/WHEEZING Last Admin: 04/13/16 16:29 Dose: 1 amp Albuterol/Ipratropium (Duoneb -) 1 amp NEB QIDR [facility] Last Admin: 04/13/16 11:10 Dose: 1 amp Amlodipine Besylate (Norvasc -) 10 mg PO DAILY [facility] Last Admin: 04/13/16 09:37 Dose: 10 mg Aspirin (Ecotrin -) 81 mg PO DAILY [facility] Last Admin: 04/13/16 09:36 Dose: 81 mg Docusate Sodium (Colace -) 100 mg PO BID [facility] Last Admin: 04/13/16 09:34 Dose: Not Given Duloxetine HCl (Cymbalta -) 30 mg PO DAILY [facility] Last Admin: 04/13/16 09:34 Dose: 30 mg Epoetin Keith (Procrit -) 10,000 unit SQ MOWEFR@1000 [facility] Heparin Sodium (Porcine) (Heparin -) 5,000 unit SQ TID [facility] Last Admin: 04/13/16 14:18 Dose: Not Given IV Flush (Picc Line Flush) 8 ml IVPUSH PRN PRN PRN Reason: Protocol Aztreonam 0.5 gm/ Dextrose 50 mls @ 100 mls/hr IVPB Q8H-IV [facility] Last Admin: 04/13/16 17:11 Dose: 100 mls/hr Pantoprazole Sodium (Protonix -) 40 mg PO DAILY [facility] Last Admin: 04/13/16 09:37 Dose: 40 mg Polyethylene Glycol (Miralax (For Daily Use) -) 17 gm PO DAILY [facility] Last Admin: 04/13/16 09:36 Dose: Not Given Prednisone (Deltasone -) 30 mg PO DAILY [facility] Last Admin: 04/13/16 09:34 Dose: 30 mg Sodium Chloride ([place] Nasal [place] -) 2 spray NS Q12H PRN PRN Reason: NASAL CONGESTION Torsemide (Demadex -) 40 mg PO DAILY [facility] Last Admin: 04/13/16 09:35 Dose: 40 mg Zinc Oxide/Panthenol/Vitamin E (Balmex Cream -) 1 applic TP ASDIR PRN PRN Reason: HYGEINE - Objective Vital Signs: Vital Signs Temperature 98.1 F 04/13/16 13:37 Pulse Rate 97 H 04/13/16 13:37 Respiratory Rate 20 04/13/16 13:37 Blood Pressure 124/82 04/13/16 09:00 O2 Sat by Pulse Oximetry (%) 93 L 04/13/16 09:00 Constitutional: Yes: No Distress, Calm Cardiovascular: Yes: Regular Rate and Rhythm Respiratory: Yes: Regular, On Venti-Mask, Poor Air Entry Gastrointestinal: Yes: Normal Bowel Sounds, Soft Musculoskeletal: Yes: WNL Extremities: Yes: Other Edema: LLE: 1+, RLE: 1+ Neurological: Yes: Alert, Oriented Psychiatric: Yes: Alert Labs: CBC, BMP 04/13/16 07:35 04/13/16 07:35 INR, PTT INR 1.27 (0.82-1.09) H 03/30/16 05:20 Fibrinogen 547.0 mg/dL (238-498) H 03/17/16 06:30 Assessment/Plan 75 year-old man with a PMH of HTN, PVD, COPD, CKD (baseline Cr 1.9), nephrolithiasis, and chronic LE lymphedema. Admitted in acute renal failure. Acute on chronic renal failure Hyperkalemia Sepsis s Hypertension Peripheral vascular disease Hypercarbic respiratory failure COPD bilateral cellulitis of the legs rsv lung infection pleural effusion anemia fevers gm positive bacteremia mrsa bacteremia plan wbc trending down continue current mgtm continue abx resp physio can stop azactam after 2 more days follow vanco levels cbc cmp twice a week vanco total of 4 weeks
--- NOTE | 2016-04-13 19:38 | PN ---
Teaching Attending Note Name of Resident: Zachery Blum ATTENDING PHYSICIAN STATEMENT I saw and evaluated the patient. I reviewed the resident's note and discussed the case with the resident. I agree with the resident's findings and plan as documented. SUBJECTIVE: Patient is comfortable with no acute distress. No shortness of breath, no nausea or vomiting. OBJECTIVE: Vital Signs Temperature 98.1 F 04/13/16 13:37 Pulse Rate 97 H 04/13/16 13:37 Respiratory Rate 20 04/13/16 13:37 Blood Pressure 124/82 04/13/16 09:00 O2 Sat by Pulse Oximetry (%) 95 04/13/16 17:55 GENERAL: Patient is AA0x3, HEAD: Normal with no signs of trauma. EYES: PERRL, extraocular movements intact, sclera anicteric, conjunctiva clear. ENT: Ears normal, oropharynx clear without exudates, moist mucous membranes. NECK: Trachea midline, full range of motion, supple. LUNGS: decreased BS at the basis , on VM, No wheezing or palpitations HEART: Regular rate and rhythm, S1, S2 positive, MEERA 2/6 ABDOMEN: Soft, large abdomen ,obese, nontender, nondistended, normoactive bowel sounds, no guarding, no rebound. EXTREMITIES: 2+ pulses, warm, 2 plus edema b/l NEUROLOGICAL: CN 2-12 grossly intact . PSYCH:AAOx3 , Alert awake SKIN: bilat. lower ext. stasis dermatitis. CBCD WBC 9.2 K/mm3 (4.0-10.0) 04/13/16 07:35 RBC 3.07 M/mm3 (4.00-5.60) L 04/13/16 07:35 Hgb 8.3 GM/dL (11.7-16.9) L 04/13/16 07:35 Hct 26.7 % (35.4-49) L 04/13/16 07:35 MCV 86.8 fl (80-96) 04/13/16 07:35 MCHC 31.0 g/dl (32.0-35.9) L 04/13/16 07:35 RDW 22.5 % (11.9-15.9) H 04/13/16 07:35 Plt Count 264 K/MM3 (134-434) 04/13/16 07:35 MPV 7.6 fl (7.5-11.1) 04/13/16 07:35 CMP Sodium 141 mmol/L (136-145) 04/13/16 07:35 Potassium 3.6 mmol/L (3.5-5.1) 04/13/16 07:35 Chloride 100 mmol/L (98-107) 04/13/16 07:35 Carbon Dioxide 35 mmol/L (21-32) H 04/13/16 07:35 Anion Gap 6 (8-16) L 04/13/16 07:35 BUN 30 mg/dL (7-18) H 04/13/16 07:35 Creatinine 1.6 mg/dL (0.7-1.3) H 04/13/16 07:35 Creat Clearance w eGFR 42.58 (>60) 04/10/16 07:20 Random Glucose 89 mg/dL (74-106) 04/13/16 07:35 Calcium 7.6 mg/dL (8.5-10.1) L 04/13/16 07:35 Total Bilirubin 0.7 mg/dL (0.2-1.0) D 04/10/16 07:20 AST 18 U/L (15-37) 04/10/16 07:20 ALT 16 U/L (12-78) 04/10/16 07:20 Alkaline Phosphatase 88 U/L (45-117) 04/10/16 07:20 Total Protein 5.5 g/dl (6.4-8.2) L 04/10/16 07:20 Albumin 2.4 g/dl (3.4-5.0) L 04/10/16 07:20 CARDIAC ENZYMES Creatine Kinase 20 IU/L (39-308) L 03/29/16 07:37 Troponin I < 0.02 ng/ml (0.00-0.05) 03/29/16 07:37 Medication Instructions Recorded Acetaminophen W/ Codeine #3 1 tab PO Q6H PRN 02/18/16 [Tylenol # 3 -] Albuterol 0.083% Nebulizer Soni 1 amp NEB ASDIR PRN 02/18/16 [Ventolin 0.083% Nebulizer Soln -] Aspirin [Ecotrin] 81 mg PO DAILY 02/18/16 Duloxetine HCl 20 mg PO DAILY 02/18/16 Prasugrel HCl [Effient] 10 mg PO DAILY 02/18/16 Pregabalin [Lyrica] 25 mg PO DAILY 02/18/16 Acetaminophen [Tylenol .Regular 650 mg PO Q6H PRN #0 tablet 04/12/16 Strength -] Amlodipine Besylate [Norvasc -] 10 mg PO DAILY #30 tablet 04/12/16 Aztreonam [Azactam (Restricted To 0.5 gm IVPB Q8H-IV #9 vial 04/12/16 Id) -] Docusate Sodium [Colace -] 100 mg PO BID #60 capsule 04/12/16 Duloxetine HCl [Cymbalta -] 30 mg PO DAILY #30 capsule. 04/12/16 Pantoprazole Sodium [Protonix -] 40 mg PO DAILY tablet.ec 04/12/16 Picc Line Flush [Picc Line Flush -] 8 ml IVPUSH PRN PRN #0 ml 04/12/16 Polyethylene Glycol 3350 [Miralax 17 gm PO DAILY #1 bottle 04/12/16 119 gm Btl -] Sodium Chloride Nasal [place] [[place] 2 spray NS Q12H PRN #0 bottle 04/12/16 [place] Nasal [place] -] Torsemide [Demadex -] 40 mg PO DAILY #30 tablet 04/12/16 Vancomycin/0.9 % Sod Chloride 1 gm IV DAILY #21 plast..bag 04/12/16 [Vanco 1 Gram/250 ml-0.9% NaCl] Epoetin Keith [Epogen] 10,000 unit SQ MOWEFR@1000 #12 dose 04/13/16 ASSESSMENT AND PLAN: 75 year-old man with a PMHx of HTN, PVD, COPD, CKD (baseline Cr 1.8), nephrolithiasis, D CHF , CAD s/p stenting in 03/23 and chronic LE lymphedema. presented with SOB and was found to have acute hypercapnic respiratory failure with acute renal failure . # Gm positive bacteremia ; MRSA bacteremia , treated with Vancomycin and Azactam a per RENUKA Szymanski # s/p severe Sepsis from right sided permacath positive for MRSA s/p removal , MRSA bacteremia, echo is negative for endocarditis, s/p Vancomycin and Azactam IV , urine culture negative, Dr Szymanski ID on the case. Cw Operator #s/p Acute on chronic hypercapnic respiratory failure s/p Intubation/ Extubation due to COPD exacerbation on VM mask now , Bipap PRN Continue prednisone , DuoNeb, albuterol as needed , s/p thoracentesis 03/07 and 03/21 , On Demadex po daily # Acute Diastolic heart failure and pleural effusions s/p R and L thoracocentesis ;off steroids. # ESRD on HD further management per nephro on cacitriol and phoslo; patient has no access for HD at this time, But his Kidney function is improving, Off dialysis now, Procrit as per Alex # Cellultis of LE : improved on Antibiotics, vancomycin on hold since random level is 23 # Anemia secondary to chronic kidney disease s/p transfusion. cont to monitor. Transfuse PRN ,Continue Procrit as per , Wally; t # s/p Thrombocytopenia: improved # HTN: cont norvasc # CAD : s/p Stenting 03/23 on Asa. #Obesity with BMI 37.4 #Constipation Continue Colace, Miralax DVT Px; heparin
[2016-04-14] MEDS ORDERED: EPOETIN ALFA 10,000 UNIT/1 ML VIAL SQ SCH (10:00)
== END 2016-04-13 19:09 | DRG 871 ==
LOC: JER 11:23 → JERBED 14:22 → JICU 17:00 → J5S 02-21 14:41 → J8W 03-07 14:10 → JICU 03-29 09:59 → J4S 04-04 20:22 → J6S 04-07 13:23
PROVIDERS: ADMIT Internal Medicine; ATTEND Internal Medicine
PROC: 05HM33Z Insertion of Infusion Device into Right Internal Jugular Vein, Percutaneous Approach (ICD-10-PCS; principal; 2016-02-18)
PROC: 5A1D60Z (ICD-10-PCS; 2016-02-19)
PROC: 5A09557 Assistance with Respiratory Ventilation, Greater than 96 Consecutive Hours, Continuous Positive Airway Pressure (ICD-10-PCS; 2016-02-27)
PROC: 30233N1 Transfusion of Nonautologous Red Blood Cells into Peripheral Vein, Percutaneous Approach (ICD-10-PCS; 2016-02-29)
PROC: 0W993ZX Drainage of Right Pleural Cavity, Percutaneous Approach, Diagnostic (ICD-10-PCS; 2016-03-07)
PROC: 0W9B3ZX Drainage of Left Pleural Cavity, Percutaneous Approach, Diagnostic (ICD-10-PCS; 2016-03-21)
PROC: 02H633Z Insertion of Infusion Device into Right Atrium, Percutaneous Approach (ICD-10-PCS; 2016-03-22)
PROC: 5A1935Z Respiratory Ventilation, Less than 24 Consecutive Hours (ICD-10-PCS; 2016-03-29)
PROC: 0BH17EZ Insertion of Endotracheal Airway into Trachea, Via Natural or Artificial Opening (ICD-10-PCS; 2016-03-29)
PROC: 02HV33Z Insertion of Infusion Device into Superior Vena Cava, Percutaneous Approach (ICD-10-PCS; 2016-04-12)
PROC: 02HV33Z Insertion of Infusion Device into Superior Vena Cava, Percutaneous Approach (ICD-10-PCS; 2016-04-13)
DX: A41.02 Sepsis due to Methicillin resistant Staphylococcus aureus (principal); J96.22 Acute and chronic respiratory failure with hypercapnia; J96.21 Acute and chronic respiratory failure with hypoxia; I50.33 Acute on chronic diastolic (congestive) heart failure; N17.0 Acute kidney failure with tubular necrosis; J44.1 Chronic obstructive pulmonary disease with (acute) exacerbation; E87.2 Acidosis; L03.116 Cellulitis of left lower limb; L03.115 Cellulitis of right lower limb; I13.0 Hypertensive heart and chronic kidney disease with heart failure and stage 1 through stage 4 chronic kidney disease, or unspecified chronic kidney disease; J90 Pleural effusion, not elsewhere classified; E87.0 Hyperosmolality and hypernatremia; T80.218A Other infection due to central venous catheter, initial encounter; I25.10 Atherosclerotic heart disease of native coronary artery without angina pectoris; E87.5 Hyperkalemia; E78.00 Pure hypercholesterolemia, unspecified; G62.89 Other specified polyneuropathies; G47.33 Obstructive sleep apnea (adult) (pediatric); I71.2 Thoracic aortic aneurysm, without rupture; E83.51 Hypocalcemia; E21.2 Other hyperparathyroidism; F41.8 Other specified anxiety disorders; E83.39 Other disorders of phosphorus metabolism; D69.6 Thrombocytopenia, unspecified; D63.8 Anemia in other chronic diseases classified elsewhere; N18.3 Chronic kidney disease, stage 3 (moderate); I73.89 Other specified peripheral vascular diseases; Z95.5 Presence of coronary angioplasty implant and graft; Z87.891 Personal history of nicotine dependence; Z99.81 Dependence on supplemental oxygen; Z88.0 Allergy status to penicillin; Z87.442 Personal history of urinary calculi; E66.01 Morbid (severe) obesity due to excess calories; Z68.33 Body mass index [BMI] 33.0-33.9, adult; B97.4 Respiratory syncytial virus as the cause of diseases classified elsewhere; Z71.3 Dietary counseling and surveillance; Z91.14 Patient's other noncompliance with medication regimen; K59.09 Other constipation; R65.20 Severe sepsis without septic shock
CPT/HCPCS: 31500; 36415; 36430; 36569; 36584; 36600; 71010-TC; 71250-TC; 76000-TC; 76775-TC; 76942; 77001-TC; 80048; 80053; 81003; 81015; 82042; 82150; 82272; 82436; 82438; 82542; 82550; 82570; 82607; 82728; 82747; 82784; 82803; 82945; 83540; 83550; 83605; 83615; 83735; 83880; 83970; 84100; 84132; 84133; 84155; 84156; 84157; 84165; 84166; 84300; 84311; 84439; 84443; 84478; 84484; 84540; 85014; 85025; 85027; 85384; 85610; 85730; 86022; 86334; 86704; 86706; 86708; 86803; 86850; 86870; 86900; 86901; 86902; 86922; 87040; 87070; 87075; 87086; 87102; 87116; 87186; 87205; 87206; 87210; 87254; 87340; 87804; 87899; 88108; 88305-TC; 88341-TC; 89051; 93005; 93010; 93306-TC; 93970-TC; 93971; 94002; 94640; 94660; 94760; 94761; 97001-GP; 97116-GP; 99283-25; C1751; G0480; J0885; J1644; P9038; P9058

== ENCOUNTER 2016-04-20 11:48 | Emergency (ER) | payer OTHER ==
--- NOTE | 2016-04-20 12:02 | PDOC ---
History of Present Illness - General Stated Complaint: PICC LINE Time Seen by Provider: 04/20/16 11:59 History Source: Patient, EMS, Care Home Records Exam Limitations: No Limitations - History of Present Illness Initial Comments: 04/20/16 11:59 The patient is a 75-year-old male, who presents to us for evaluation of a "nonfunctioning PICC line." The patient has no complaints. Nursing 7 patient with me, and the PICC line flushes well. There is good blood return. Past History - Past Medical History Allergies/Adverse Reactions: Allergies Allergy/AdvReac Type Severity Reaction Status Date / Time Penicillins Allergy Verified 04/20/16 12:04 Home Medications: Ambulatory Orders Acetaminophen W/ Codeine #3 [Tylenol # 3 -] 1 tab PO Q6H PRN 02/18/16 Albuterol 0.083% Nebulizer Soni [Ventolin 0.083% Nebulizer Soln -] 1 amp NEB ASDIR PRN 02/18/16 Aspirin [Ecotrin] 81 mg PO DAILY 02/18/16 Duloxetine HCl 20 mg PO DAILY 02/18/16 Prasugrel HCl [Effient] 10 mg PO DAILY 02/18/16 Pregabalin [Lyrica] 25 mg PO DAILY 02/18/16 Acetaminophen [Tylenol .Regular Strength -] 650 mg PO Q6H PRN #0 tablet Amlodipine Besylate [Norvasc -] 10 mg PO DAILY #30 tablet 04/12/16 Aztreonam [Azactam (Restricted To Id) -] 0.5 gm IVPB Q8H-IV #9 vial 04/12/16 Docusate Sodium [Colace -] 100 mg PO BID #60 capsule 04/12/16 Duloxetine HCl [Cymbalta -] 30 mg PO DAILY #30 capsule. 04/12/16 Pantoprazole Sodium [Protonix -] 40 mg PO DAILY tablet.ec 04/12/16 Picc Line Flush [Picc Line Flush -] 8 ml IVPUSH PRN PRN #0 ml 04/12/16 Polyethylene Glycol 3350 [Miralax 119 gm Btl -] 17 gm PO DAILY #1 bottle Sodium Chloride Nasal [place] [[place] Nasal [place] -] 2 spray NS Q12H PRN #0 bottle 04/12/16 Torsemide [Demadex -] 40 mg PO DAILY #30 tablet 04/12/16 Vancomycin/0.9 % Sod Chloride [Vanco 1 Gram/250 ml-0.9% NaCl] 1 gm IV DAILY #21 plast..bag 04/12/16 Epoetin Keith [Epogen] 10,000 unit SQ MOWEFR@1000 #12 dose 04/13/16 Anemia: Yes Asthma: No Cancer: No Cardiac Disorders: Yes (CAD - 2 cardiac stents placed 03/26/2015) CVA: No COPD: Yes (resp failure) CHF: Yes Dementia: No Diabetes: (unknown) GI Disorders: Yes (H/O mild GI bleed) Disorders: No HTN: Yes Hypercholesterolemia: Yes Liver Disease: No Seizures: No Thyroid Disease: No - Surgical History Abdominal Surgery: No Appendectomy: No Cardiac Surgery: Yes (2 cardiac stents) Cholecystectomy: No Lung Surgery: No Neurologic Surgery: No Orthopedic Surgery: No - Immunization History Immunization Up to Date: Yes - Psycho/Social/Smoking Cessation Hx Anxiety: No Suicidal Ideation: No Smoking Status: Yes Smoking History: Former smoker Have you smoked in the past 12 months: No Number of Cigarettes Smoked Daily: 0 If you are a former smoker, when did you quit?: 6 years 'Breaking Loose' booklet given: 04/01/15 Hx Alcohol Use: No Drug/Substance Use Hx: No Substance Use Type: None Hx Substance Use Treatment: No Review of Systems - Review of Systems Comments:: 04/20/16 12:00 The patient has no complaints *Physical Exam - Physical Exam Comments: 04/20/16 12:00 GENERAL: Well-appearing, well-nourished. No apparent distress. HEENT: Normocephalic, atraumatic. PERRL, EOM intact. CARDIOVASCULAR: Normal S1, S2. Regular rate and rhythm. PULMONARY: Clear to auscultation bilaterally. ABDOMEN: Soft, non-distended, non-tender. EXTREMITIES: Normal ROM in all four extremities. No gross deformities. SKIN: PICC line in the left upper extremity is nontender, without erythema. Warm, dry. No rash NEUROLOGICAL: No focal neurological deficits. Medical Decision Making - Medical Decision Making 04/20/16 12:00 PICC line flushes well, without resistance There is ample blood return Clinical impression: Evaluation of PICC line I discussed the physical exam findings, ancillary test results and final diagnoses with the patient. I answered all of the patient's questions. The patient was satisfied with the care received and felt comfortable with the discharge plan and treatment plan. The patient will call their primary care physician within 24 hours to arrange follow-up and will return to the Emergency Department with any new, persistent or worsening symptoms. *DC/Admit/Observation/Transfer Diagnosis at time of Disposition: Occluded PICC line - Discharge Dispostion Disposition: HOME - Referrals Referrals: Marvel Tay MD [Primary Care Provider] - - Patient Instructions Printed Discharge Instructions: Peripherally Inserted Central Catheter Additional Instructions: Return to the emergency department immediately with ANY new, persistent or worsening symptoms. You MUST call and follow up with your doctor tomorrow. Please make sure your doctor reviews the results of your emergency department evaluation.
[2016-04-20 12:07] VITALS: BP 160/120; PULSE 92; TEMP 98.3; BMI 33.0
== END 2016-04-20 13:50 | disposition home or self-care (01) ==
LOC: JER 11:48
PROC: 3C1ZX8Z Irrigation of Indwelling Device using Irrigating Substance, External Approach (ICD-10-PCS; principal; 2016-04-20)
DX: T82.594A Other mechanical complication of infusion catheter, initial encounter (principal); I25.10 Atherosclerotic heart disease of native coronary artery without angina pectoris; I10 Essential (primary) hypertension; Z95.5 Presence of coronary angioplasty implant and graft; J44.9 Chronic obstructive pulmonary disease, unspecified; I50.9 Heart failure, unspecified
CPT/HCPCS: 99281-25

== ENCOUNTER 2016-04-25 18:22 | Inpatient (IN) | payer OTHER ==
--- NOTE | 2016-04-25 18:35 | PDOC ---
History of Present Illness - General History Source: Patient, EMS, Family, Detention Records, Old Records Exam Limitations: No Limitations - History of Present Illness Initial Comments: 04/25/16 21:40 The patient is a 75 year old male with past medical history of hypertension, hyperlipidemia, CAD (coronary stents x2), diastolic heart failure, COPD (on 2L O2 at home), CHF, renal failure, peripheral vascular disease, chronic lymphedema , multiple pleural effusions resulting in thoracentesis, anemia, and hx of MRSA in permacath who was sent from [facility] for concerns of respiratory failure and increasing hypoxia. He complains of productive cough as well with yellow phlegm as well as a decrease in appetite. The patient was placed on a PICC line 5th in which he has been receiving vanco and levaquin. He was seen on the for a nonfunctioning PICC line. PCP: Maggi <Amy Berman - Last Filed: 04/25/16 23:44> <Kirsten Ridley - Last Filed: 04/26/16 03:25> - General Chief Complaint: Respiratory Stated Complaint: R/O PNEUMONIA Time Seen by Provider: 04/25/16 18:34 Past History <Amy Berman - Last Filed: 04/25/16 23:44> - Past Medical History Anemia: Yes Asthma: No Cancer: No Cardiac Disorders: Yes (CAD - 2 cardiac stents placed 03/26/2015) CVA: No COPD: Yes (resp failure) CHF: Yes Dementia: No Diabetes: (unknown) GI Disorders: Yes (H/O mild GI bleed) Disorders: No HTN: Yes Hypercholesterolemia: Yes Liver Disease: No Seizures: No Thyroid Disease: No - Surgical History Abdominal Surgery: No Appendectomy: No Cardiac Surgery: Yes (2 cardiac stents) Cholecystectomy: No Lung Surgery: No Neurologic Surgery: No Orthopedic Surgery: No - Immunization History Immunization Up to Date: Yes - Psycho/Social/Smoking Cessation Hx Anxiety: No Suicidal Ideation: No Smoking Status: Yes Smoking History: Former smoker Have you smoked in the past 12 months: No Number of Cigarettes Smoked Daily: 0 If you are a former smoker, when did you quit?: 6 years 'Breaking Loose' booklet given: 04/01/15 Hx Alcohol Use: No Drug/Substance Use Hx: No Substance Use Type: None Hx Substance Use Treatment: No <Kirsten Ridley - Last Filed: 04/26/16 03:25> - Past Medical History Allergies/Adverse Reactions: Allergies Allergy/AdvReac Type Severity Reaction Status Date / Time Penicillins Allergy Verified 04/25/16 18:40 Home Medications: Ambulatory Orders Acetaminophen W/ Codeine #3 [Tylenol # 3 -] 1 tab PO Q6H PRN 02/18/16 Albuterol 0.083% Nebulizer Soni [Ventolin 0.083% Nebulizer Soln -] 1 amp NEB ASDIR PRN 02/18/16 Aspirin [Ecotrin] 81 mg PO DAILY 02/18/16 Duloxetine HCl 60 mg PO DAILY 02/18/16 Pregabalin [Lyrica] 25 mg PO DAILY 02/18/16 Acetaminophen [Tylenol .Regular Strength -] 650 mg PO Q6H PRN #0 tablet Amlodipine Besylate [Norvasc -] 10 mg PO DAILY #30 tablet 04/12/16 Aztreonam [Azactam (Restricted To Id) -] 0.5 gm IVPB Q8H-IV #9 vial 04/12/16 Docusate Sodium [Colace -] 100 mg PO BID #60 capsule 04/12/16 Duloxetine HCl [Cymbalta -] 30 mg PO DAILY #30 capsule. 04/12/16 Pantoprazole Sodium [Protonix -] 40 mg PO DAILY tablet.ec 04/12/16 Picc Line Flush [Picc Line Flush -] 8 ml IVPUSH PRN PRN #0 ml 04/12/16 Polyethylene Glycol 3350 [Miralax 119 gm Btl -] 17 gm PO DAILY #1 bottle Sodium Chloride Nasal [place] [[place] Nasal [place] -] 2 spray NS Q12H PRN #0 bottle 04/12/16 Vancomycin/0.9 % Sod Chloride [Vanco 1 Gram/250 ml-0.9% NaCl] 1 gm IV DAILY #21 plast..bag 04/12/16 Epoetin Keith [Epogen] 10,000 unit SQ MOWEFR@1000 #12 dose 04/13/16 Ferrous Sulfate 325 mg PO BID 04/25/16 Guaifenesin Dm [Robitussin Dm] 10 ml PO Q4H 04/25/16 Guaifenesin [Mucinex] 600 mg PO BID 04/25/16 Levofloxacin [Levaquin] 250 mg PO DAILY 04/25/16 Mirtazapine [Remeron -] 7.5 mg PO HS 04/25/16 Prasugrel HCl [Effient] 10 mg PO DAILY 04/25/16 Pregabalin [Lyrica] 25 mg PO DAILY 04/25/16 Salmeterol/Fluticasone [Advair 100Mcg/50Mcg -] 1 inh PO BID 04/25/16 Sennosides [Senna] 8.6 mg PO DAILY 04/25/16 Torsemide [Demadex -] 20 mg PO DAILY 04/25/16 Review of Systems - Review of Systems Able to Perform ROS?: Yes Comments:: 04/25/16 21:40 CONSTITUTIONAL: Present: fever, chills Absent:diaphoresis, generalized weakness, malaise, loss of appetite HEENT: Absent: rhinorrhea, nasal congestion, throat pain, throat swelling, difficulty swallowing, mouth swelling, ear pain, eye pain, visual Changes CARDIOVASCULAR: Absent: chest pain, syncope, palpitations, irregular heart rate, lightheadedness , peripheral edema RESPIRATORY: Present: shortness of breath, cough Absent: dyspnea with exertion, orthopnea, wheezing, stridor, hemoptysis GASTROINTESTINAL: Absent: abdominal pain, abdominal distension, nausea, vomiting, diarrhea, constipation, melena, hematochezia GENITOURINARY: Absent: dysuria, frequency, urgency, hesitancy, hematuria, flank pain, genital pain MUSCULOSKELETAL: Absent: myalgia, arthralgia, joint swelling SKIN: Absent: rash, itching, pallor HEMATOLOGIC/IMMUNOLOGIC: Absent: easy bleeding, easy bruising, lymphadenopathy, frequent infections ENDOCRINE: Absent: unexplained weight gain, unexplained weight loss, heat intolerance, cold intolerance NEUROLOGIC: Absent: headache, focal weakness or paresthesias, dizziness, unsteady gait, seizure, mental status changes, bladder or bowel incontinence PSYCHIATRIC: Absent: anxiety, depression, suicidal or homicidal ideation, hallucinations. All Other Systems: Reviewed and Negative <Amy Berman - Last Filed: 04/25/16 23:44> *Physical Exam - Vital Signs Last Vital Signs Temp Pulse Resp BP Pulse Ox 98.2 F 93 H 32 H 103/55 98 04/25/16 18:40 04/25/16 19:40 04/25/16 19:33 04/25/16 19:33 04/25/16 19:40 - Physical Exam Comments: 04/25/16 21:41 GENERAL: Agitated due to sacral pain and in mild respiratory distress. HEENT: Normocephalic, atraumatic. PERRLA, EOMI. No conjunctival pallor. Sclera are non- icteric. Moist mucous membranes. Oropharynx is clear. NECK: Supple. Full ROM. No JVD. Carotid pulses 2+ and symmetric, without bruits. No thyromegaly. No lymphadenopathy. CARDIOVASCULAR: Regular rate and rhythm. No murmurs, rubs, or gallops. Distal pulses are 2+ and symmetric. PULMONARY: Bibasilar rales. No wheezing or rhonchi. ABDOMINAL: Soft. Non-tender. Protuberant belly. No rebound or guarding. No organomegaly. Normoactive bowel sounds. MUSCULOSKELETAL Normal range of motion at all joints. No bony deformities or tenderness. No CVA tenderness. EXTREMITIES: Chronic venous stasis changes in bilateral LE. No cyanosis. No clubbing. No edema. No calf tenderness. SKIN: Chronic erythematous and sore buttox. Normal capillary refill. No rashes. No jaundice. NEUROLOGICAL: Alert, awake, appropriate. Cranial nerves 2-12 intact. No deficits to light touch and temperature in face, upper extremities and lower extremities. No motor deficits in the in face, upper extremities and lower extremities. Normoreflexic in the upper and lower extremities. Normal speech. Toes are down-going bilaterally. Gait is normal without ataxia. PSYCHIATRIC: Cooperative. Good eye contact. Appropriate mood and affect. <Amy Berman - Last Filed: 04/25/16 23:44> ED Treatment Course - LABORATORY CBC & Chemistry Diagram: 04/25/16 19:13 04/25/16 19:13 - ADDITIONAL ORDERS Additional order review: Laboratory Results 04/25/16 04/25/16 20:54 19:13 Sodium 145 Potassium 4.0 Chloride 102 Carbon Dioxide 36 H Anion Gap 7 L BUN 41 H D Creatinine 2.3 H D Creat Clearance w eGFR 28.01 Random Glucose 107 H D Calcium 8.3 L Total Bilirubin 0.5 D AST 13 L D ALT 8 L D Alkaline Phosphatase 132 H D Total Protein 4.9 L Albumin 2.0 L Urine Color Brown Urine Appearance Clear Urine pH 5.5 Ur Specific Osteen 1.025 Urine Protein 2+ H Urine Glucose (UA) Negative Urine Ketones Negative Urine Blood 3+ H Urine Nitrite Negative Urine Bilirubin 1+ H Urine Urobilinogen 0.2 e.u/dl Ur Leukocyte Esterase 2+ H 04/25/16 19:13 RBC 2.47 L MCV 87.6 MCHC 30.2 L RDW 18.6 H D MPV 7.0 L Neutrophils % 76.2 Lymphocytes % 8.8 Monocytes % 6.1 Eosinophils % 8.0 H D Basophils % 0.9 - RADIOLOGY Radiograph Interpretation: 04/25/16 21:16 Chest X-ray as reviewed by Dr. Porter reports interval development of a 3cm focal opacity within the left lower lobe laterally suggestive of infiltrate. Improved pulmonary vascular congestion is seen with associated improved small bilateral pleural effusions. - Medications Given in the ED: ED Medications Discontinued Medications Generic Name Dose Route Start Last Admin Trade Name Freq PRN Reason Stop Dose Admin Albuterol/Ipratropium 1 amp 04/25/16 18:45 04/25/16 19:32 Duoneb - NEB 04/25/16 19:31 1 amp Q15M LESLEE Administration Magnesium Sulfate 2 gm 04/25/16 18:40 04/25/16 19:32 Magnesium Sulfate IVPB 04/25/16 18:41 2 gm ONCE ONE Administration Methylprednisolone Sodium Succinate 125 mg 04/25/16 18:40 04/25/16 19:10 Solu-Medrol - IVPB 04/25/16 18:41 125 mg ONCE ONE Administration <Amy Berman - Last Filed: 04/25/16 23:44> - LABORATORY CBC & Chemistry Diagram: 04/25/16 19:13 04/25/16 19:13 <Kirsten Ridley - Last Filed: 04/26/16 03:25> Medical Decision Making - Medical Decision Making 04/25/16 21:42 22:00 Phone call sent to patient's PCP, Dr. Tay who returned call promptly and case was discussed. Patient will be admitted. <Amy Berman - Last Filed: 04/25/16 23:44> - Critical Care Time Total Critical Care Time (minutes): 60 Critical Care Statement: The care of this patient involved high complexity decision making to prevent further life threatening deterioration of the patient 's condition and/or to evalute & treat vital organ system(s) failure or risk of failure. - Medical Decision Making 04/26/16 01:18 75-year-old male brought in by ambulance from the detention for pneumonia He had a x-ray taken that showed an infiltrate. Also, they noted that he's had decreased by mouth intake for the last day -He has no fever Medical history significant for COPD, chronic kidney disease, baseline creatinine 1.8, diastolic congestive heart failure, coronary artery disease status post stenting in March 2015, chronic lower extremity of the lymphedema , hypertension, peripheral vascular disease. -Reviewing the patient's old history. I see that he has a history of BiPAP at night as needed -he netoltsohail has a PICC line and has been receiving IV vanco and levaquin daily. He was diagnosed w MRSA bacteremia recently His biggest complaint was buttocks pain. His sacrum was very erythematous but there was no actually skin breakdown was noted - pt was afebrile,normotensive but required oxygen , 40% ventimask -no leukocytosis but he was anemic + UTI but is getting daily levaquin- -he does have hemoglobin of 6 and hematocrit of 21. He was transfused last in early March 2016. No evidence of any GI bleed, there is a history of microcytic anemia -pt Refused an arterial blood gas I spoke w Dr Kailash Canada about the concern for choosing an appropriate antibiotic since he already was on levaquin and vanco ID consult will be obtained 04/26/16 03:11 04/26/16 03:20 <Kirsten Ridley - Last Filed: 04/26/16 03:25> *DC/Admit/Observation/Transfer - Attestations Scribe Attestion: 04/25/16 21:18 Documentation prepared by Amy Berman, acting as medical recruiter for Kirsten Ridley MD/DO. <Amy Berman - Last Filed: 04/25/16 23:44> - Discharge Dispostion Admit: Yes <Kirsten Ridley - Last Filed: 04/26/16 03:25> Diagnosis at time of Disposition: Acute exacerbation of chronic obstructive pulmonary disease (COPD), Chronic kidney disease (CKD) stage G3a/A2, moderately decreased glomerular filtration rate (GFR) between 45-59 mL/min/1.73 square meter and albuminuria creatinine ratio between 30-299 mg/g, COPD exacerbation, Stage 1 skin ulcer of sacral region Anemia Qualifiers: Anemia type: other cause Other causes of anemia: other cause, not classified Qualified Code(s): D64.89 - Other specified anemias Pneumonia Qualifiers: Pneumonia type: due to unspecified organism Laterality: left Lung location: lower lobe of lung Qualified Code(s): J18.9 - Pneumonia, unspecified organism - Referrals
[2016-04-25] MEDS ORDERED: methylPREDNISolone NA SUCC 125 MG/2 ML VIAL IVPB ONE (18:40)
[2016-04-25] MEDS ORDERED: MAGNESIUM SULF 50% (8.12 MEQ/2 ML-1 GM VIAL) IVPB ONE (18:40)
[2016-04-25] MEDS: ALBUTEROL SO4 2.5/IPRATROPIUM 0.5 INH SOL 3 ML VIAL.NEB. NEB SCH ×4 (18:45→19:32)
[2016-04-25] MEDS ORDERED: ALBUTEROL SO4 2.5/IPRATROPIUM 0.5 INH SOL 3 ML VIAL.NEB. NEB ONE (18:53)
[2016-04-25] MEDS ORDERED: methylPREDNISolone NA SUCC 125 MG/2 ML VIAL ONE (19:03)
[2016-04-25] MEDS ORDERED: MAGNESIUM SULF 50% (8.12 MEQ/2 ML-1 GM VIAL) ONE (19:03)
[2016-04-25 19:29] LABS: BASOPHIL 0.9 % (0-2.0); MCH 26.5 pg (25.7-33.7); MCHC 30.2 g/dl (32.0-35.9); MEAN CELL VOLUME 87.6 fl (80-96); NEUTROPHILS 76.2 % (42.8-82.8); PLATELET COUNT 272 K/MM3 (134-434); RDW 18.6 % (11.9-15.9); WHITE BLOOD COUNT 9.6 K/mm3 (4.0-10.0)
[2016-04-25 20:26] LABS: BILIRUBIN,TOTAL 0.5 mg/dL (0.2-1.0); CALCIUM 8.3 mg/dL (8.5-10.1); CREATININE 2.3 mg/dL (0.7-1.3)
[2016-04-25 20:27] LABS: TOT PROT 4.9 g/dl (6.4-8.2)
[2016-04-25 21:05] LABS: PH,URINE 5.5 (5.0-8.0); URINE APPEARANCE CLEAR; URINE BILIRUBIN 1+ (NEGATIVE); URINE COLOR BROWN; URINE GLUCOSE (UA) NEGATIVE (NEGATIVE); URINE KETONE NEGATIVE (NEGATIVE); URINE NITRITE NEGATIVE (NEGATIVE); URINE UROBILINOGEN 0.2 E.U/dl E.U./dl (0.2-1.0)
[2016-04-25 21:07] LABS: URINE BLOOD 3+ (NEGATIVE); URINE LEUK ESTERASE 2+ (NEGATIVE); URINE PROTEIN 2+ (NEGATIVE)
[2016-04-25 21:47] LABS: URINE RBC 56 /hpf (0-3); URINE WBC 981 /hpf (3-5)
[2016-04-25] MEDS ORDERED: ACETAMINOPHEN WITH CODEINE 300MG/30MG TABLET PO ONE (22:18)
[2016-04-25] MEDS ORDERED: ACETAMINOPHEN WITH CODEINE 300MG/30MG TABLET ONE (22:43)
[2016-04-26] MEDS ORDERED: PICC LINE 8 ML FLUSH PROTOCOL IVPUSH PRN
[2016-04-26] MEDS ORDERED: FUROSEMIDE 40 MG/4 ML INJECTABLE VIAL IVPUSH ONE (00:05)
[2016-04-26] MEDS ORDERED: ALBUTEROL SO4 2.5/IPRATROPIUM 0.5 INH SOL 3 ML VIAL.NEB. NEB ONE ×2 (01:52→03:01)
[2016-04-26] MEDS ORDERED: AZTREONAM 1 GM VIAL (RESTRICTED TO ID) IVPB SCH (02:00)
[2016-04-26 02:36] LABS: TROPONIN I < 0.02 ng/ml (0.00-0.05)
[2016-04-26] MEDS ORDERED: FUROSEMIDE 40 MG/4 ML INJECTABLE VIAL ONE (03:01)
--- NOTE | 2016-04-26 04:40 | CONSULT ---
Consult Consult Specialty:: Pulm/CC - History of Present Illness History of Present Illness: Pt is a 75yr old man with PMHx of O2 dependent COPD, HTN, HLD, CAD (s/p 2 stents ), CHF, CRF, PVD, chronic lymphedema, pleural effusions requiring thoracentesis , anemia. Pt with recent admission from 02/17 - 04/13, discharged to [facility] with PICC for nursing home antibiotics (Aztreonam/Levaquin/Vanc) for bactermia, likely from permacath which has since been removed. He presents today with CC of nonfunctioning picc line, hypoxia and productive cough. In the ER found to have h/h 6.5/21.6, BUN/Cr 41/2.3 (Cr was 1.6 on 04/13) and +UA. Pt admitted to the ICU for further management. Upon assessment pt denies chest pain/sob/stomachache/ headache. Picc line assessed with RN, unable to flush. 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: Peripheral Neuropathy Cardio/Vascular: Yes: CAD, CHF (diastolic), HTN, Hyperlipdemia Pulmonary: Yes: COPD, O2 Dependent, Sleep Apnea Renal/: Yes: Renal Inusuff, Renal Calculi Dermatology: Yes: Cellulitis (Cellulitis lower extremiites during patient's hospitalization in February) Additional Medical History: Obesity - Past Surgical History Past Surgical History: Yes: None - Alcohol/Substance Use Hx Alcohol Use: No History of Substance Use: reports: None - Smoking History Smoking history: Former smoker Have you smoked in the past 12 months: No Aproximately how many cigarettes per day: 0 If you are a former smoker, when did you quit?: 6 years - Social History ADL: Independent 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 History of Recent Travel: No <Nicole Pleitez - Last Filed: 04/26/16 05:36> Home Medications <Nicole Pleitez - Last Filed: 04/26/16 05:36> <Xavier Conway MD - Last Filed: 04/26/16 11:42> - Allergies Allergies/Adverse Reactions: Allergies Allergy/AdvReac Type Severity Reaction Status Date / Time Penicillins Allergy Verified 04/25/16 18:40 - Home Medications Home Medications: Ambulatory Orders Acetaminophen W/ Codeine #3 [Tylenol # 3 -] 1 tab PO Q6H PRN 02/18/16 Albuterol 0.083% Nebulizer Soni [Ventolin 0.083% Nebulizer Soln -] 1 amp NEB ASDIR PRN 02/18/16 Aspirin [Ecotrin] 81 mg PO DAILY 02/18/16 Duloxetine HCl 60 mg PO DAILY 02/18/16 Pregabalin [Lyrica] 25 mg PO DAILY 02/18/16 Acetaminophen [Tylenol .Regular Strength -] 650 mg PO Q6H PRN #0 tablet Amlodipine Besylate [Norvasc -] 10 mg PO DAILY #30 tablet 04/12/16 Aztreonam [Azactam (Restricted To Id) -] 0.5 gm IVPB Q8H-IV #9 vial 04/12/16 Docusate Sodium [Colace -] 100 mg PO BID #60 capsule 04/12/16 Duloxetine HCl [Cymbalta -] 30 mg PO DAILY #30 capsule. 04/12/16 Pantoprazole Sodium [Protonix -] 40 mg PO DAILY tablet.ec 04/12/16 Picc Line Flush [Picc Line Flush -] 8 ml IVPUSH PRN PRN #0 ml 04/12/16 Polyethylene Glycol 3350 [Miralax 119 gm Btl -] 17 gm PO DAILY #1 bottle Sodium Chloride Nasal [place] [[place] Nasal [place] -] 2 spray NS Q12H PRN #0 bottle 04/12/16 Vancomycin/0.9 % Sod Chloride [Vanco 1 Gram/250 ml-0.9% NaCl] 1 gm IV DAILY #21 plast..bag 04/12/16 Epoetin Keith [Epogen] 10,000 unit SQ MOWEFR@1000 #12 dose 04/13/16 Ferrous Sulfate 325 mg PO BID 04/25/16 Guaifenesin Dm [Robitussin Dm] 10 ml PO Q4H 04/25/16 Guaifenesin [Mucinex] 600 mg PO BID 04/25/16 Levofloxacin [Levaquin] 250 mg PO DAILY 04/25/16 Mirtazapine [Remeron -] 7.5 mg PO HS 04/25/16 Prasugrel HCl [Effient] 10 mg PO DAILY 04/25/16 Pregabalin [Lyrica] 25 mg PO DAILY 04/25/16 Salmeterol/Fluticasone [Advair 100Mcg/50Mcg -] 1 inh PO BID 04/25/16 Sennosides [Senna] 8.6 mg PO DAILY 04/25/16 Torsemide [Demadex -] 20 mg PO DAILY 04/25/16 Family Disease History - Family Disease History Family Disease History: Other: Father (parkinson's disease) <Nicole Pleitez - Last Filed: 04/26/16 05:36> Review of Systems - Review of Systems Cardiovascular: denies: Chest Pain Respiratory: reports: SOB (pt denies) Gastrointestinal: denies: Abdominal Pain Neurological: denies: Headache <Nicole Pleitez - Last Filed: 04/26/16 05:36> Physical Exam Vital Signs: Vital Signs Period Temp Pulse Resp BP Sys/[place] Pulse Ox Last 24 Hr 98.2 F 91-98 22-32 103-130/55-70 91-98 Intake & Output 04/23/16 04/24/16 04/25/16 04/26/16 23:59 23:59 23:59 23:59 Weight 280 lb Constitutional: Yes: Well Nourished, Mild Distress Eyes: Yes: WNL HENT: Yes: WNL Neck: Yes: WNL Cardiovascular: Yes: S1, S2 Respiratory: Yes: Cough, On Venti-Mask, Rhonchi (R>L) Gastrointestinal: Yes: Normal Bowel Sounds, Tenderness Renal/: Yes: CVA Tenderness - Left, CVA Tenderness - Right, Clifford Present ( cloudy/purulent yellow output) Musculoskeletal: Yes: Other (BLE pain) Edema: No Peripheral Pulses WNL: Yes (+2 bilateral pedal pulses) Integumentary: Yes: Other (ble hyperpigmentation, scaling) Wound/Incision: Yes: Other (rt chest with clean scar from former permacath. LUE picc line dressing w/d/i) Neurological: Yes: WNL Psychiatric: Yes: Agitated <Nicole Pleitez - Last Filed: 04/26/16 05:36> Vital Signs: Vital Signs Temperature 97.3 F L 04/26/16 10:00 Pulse Rate 87 04/26/16 10:23 Respiratory Rate 32 H 04/26/16 10:00 Blood Pressure 146/61 04/26/16 10:00 O2 Sat by Pulse Oximetry (%) 97 04/26/16 10:23 Labs: CBC, BMP 04/26/16 05:30 <Xavier Conway MD - Last Filed: 04/26/16 11:42> Imaging - Results Chest X-ray: Report Reviewed, Image Reviewed <Nicole Pleitez - Last Filed: 04/26/16 05:36> Assessment/Plan Pulm: -o2 support for sat 88-92, bipap as tolerated -Nebulizers standing and prn -f/u repeat chest xray -F/U abg ID: hx of MDR mrsa bacteremia +hcap +uti -Consult -f/u cultures -Continue Aztreonam/Levaquin/Vanc -trend lactic acid -Nystatin to groin Renal: UTI/KARLOS -Consult -Gentle fluids as tolerated -Monitor electrolytes -Renal dose medication Cardiovascular: -Consult -f/u cardiac enzymes -bp control -Monitor h/h, transfuse prn Neuro -Pain management Prophylactic -DVT <Nicole Pleitez - Last Filed: 04/26/16 05:36> Pt seen and examined, agree with above. Will f/u cultures, adjust antibiotic coverage as necessary, d/c PICC line, start IV lasix. Xavier Conway MD <Xavier Conway MD - Last Filed: 04/26/16 11:42>
[2016-04-26] MEDS ORDERED: GENTAMICIN IVPB SCH (05:00)
[2016-04-26] MEDS ORDERED: WATER IVPB SCH (05:00)
[2016-04-26] MEDS ORDERED: DEXTROSE 5% IVPB SCH (05:00)
[2016-04-26 05:01] VITALS: BMI 30.9
[2016-04-26 06:06] LABS: MAGNESIUM 2.9 mg/dL (1.8-2.4); PHOSPHOROUS 5.2 mg/dL (2.5-4.9)
[2016-04-26 06:09] LABS: BASOPHIL 0.4 % (0-2.0); MCH 26.8 pg (25.7-33.7); MCHC 30.7 g/dl (32.0-35.9); MEAN CELL VOLUME 87.3 fl (80-96); MEAN PLT VOLUME 7.3 fl (7.5-11.1); NEUTROPHILS 92.9 % (42.8-82.8); PLATELET COUNT 279 K/MM3 (134-434); RDW 18.6 % (11.9-15.9); TROPONIN I < 0.02 ng/ml (0.00-0.05); WHITE BLOOD COUNT 8.4 K/mm3 (4.0-10.0)
[2016-04-26] MEDS ORDERED: LEVOFLOXACIN 250 MG TABLET (FP) PO SCH (07:00)
[2016-04-26] MEDS: ALBUTEROL SO4 2.5/IPRATROPIUM 0.5 INH SOL 3 ML VIAL.NEB. NEB SCH ×3 (07:03→22:02)
[2016-04-26] MEDS ORDERED: PT OWN MED DRAWER 7, Y5N ONE ×2 (09:23→20:52)
[2016-04-26] MEDS ORDERED: TORSEMIDE 20 MG TABLET (FP) PO SCH (10:00)
[2016-04-26] MEDS ORDERED: PANTOPRAZOLE 40 MG TABLET (FP) PO SCH (10:00)
[2016-04-26] MEDS ORDERED: ASPIRIN COATED 81 MG TABLET.EC PO SCH (10:00)
[2016-04-26] MEDS ORDERED: FLUTICASONE/SALMETEROL 100 MCG/50 MCG DISKUS IH SCH (10:00)
[2016-04-26] MEDS ORDERED: PRASUGREL HCL 10 MG TAB PO SCH (10:00)
[2016-04-26] MEDS ORDERED: amLODIPine BESYLATE 10 MG TABLET (FP) PO SCH (10:00)
[2016-04-26] MEDS ORDERED: PREGABALIN 25 MG CAPSULE PO SCH (10:00)
[2016-04-26] MEDS ORDERED: NYSTATIN POWDER 100,000 UNITS/GM - 15 GM TOPICAL POWDER TP SCH (10:00)
[2016-04-26] MEDS ORDERED: EPOETIN ALFA 10,000 UNIT/1 ML VIAL SQ SCH (10:00)
[2016-04-26] MEDS ORDERED: POLYETHYLENE GLYCOL 3350 119 GM BTL PO SCH (10:00)
[2016-04-26] MEDS ORDERED: DULoxetine HCL 30 MG CAPSULE.DR (FP) PO SCH (10:00)
[2016-04-26] MEDS ORDERED: HEPARIN NA (PORCINE) 5,000 UNITS/ML 1ML VIAL SQ SCH (10:00)
[2016-04-26] MEDS ORDERED: methylPREDNISolone NA SUCC 40 MG/1 ML VIAL IVPB SCH (10:00)
[2016-04-26] MEDS ORDERED: guaiFENesin 600 MG TABLET.ER (FP) PO SCH (10:00)
[2016-04-26] MEDS ORDERED: DOCUSATE SODIUM 100 MG CAPSULE (FP) PO SCH (10:00)
[2016-04-26] MEDS ORDERED: SENNOSIDES 8.6MG TABLET (FP) PO SCH (10:00)
[2016-04-26] MEDS: FERROUS SO4 325 MG TABLET (FP) PO SCH ×2 (10:21→16:49)
[2016-04-26] MEDS: ALBUTEROL SO4 0.083% IH SOL 2.5 MG/3 ML VIAL.NEB. NEB PRN ×2 (10:50→17:15)
--- NOTE | 2016-04-26 11:10 | PN ---
Progress Note (short form) - Note Progress Note: I was flight information expediter for [facility] last weekend 04/21-04/23 and I was called on 04/23 that this pt is on IV ATB for PNA and had some pleuritic CP with cough, I ordered stat CXR (per nurse showed RLL no change from before) and tylenol prn and I asked the nurse if CP not better within 1 hour, or if worse at any time, to transfer pt to hospital ER; I also informed dr Shook at the same time about the above and he said he will see pt in am (on 04/24) in [place].
--- NOTE | 2016-04-26 11:47 | PN ---
Physical Exam: SUBJECTIVE: Patient seen and examined at bedside. No overnight events. No new complaints. Breathing is better. Denies CP, [place], palpiations, N/V. OBJECTIVE: Vital Signs Period Temp Pulse Resp BP Sys/[place] Pulse Ox Last 24 Hr 97.3 F-97.3 F 86-98 14-32 122-146/59-62 90-97 GENERAL: The patient is awake, alert, mild distress. HEAD: Normal with no signs of trauma. EYES: PERRL, extraocular movements intact, sclera anicteric, conjunctiva clear. No ptosis. ENT: Ears normal, nares patent, moist mucous membranes. NECK: supple, NO JVD LUNGS: Scatttered rhonci bilat. (R>L)no wheezes, no crackles, no accessory muscle use. HEART: Regular rate and rhythm, S1, S2 without murmur, rub or gallop. ABDOMEN: Soft, nontender, nondistended, normoactive bowel sounds, no guarding, no rebound, no hepatosplenomegaly, no masses. EXTREMITIES:LUE picc line dressing w/d/i, 2+ pulses, warm, well-perfused, no edema. NEUROLOGICAL: AAO x3 Normal speech, gait not observed. PSYCH: Normal mood, normal affect. SKIN: Bilateral lower ext. scaling Laboratory Results - last 24 hr 04/26/16 04/26/16 04/26/16 02:00 02:00 05:30 WBC RBC Hgb Hct MCV MCHC RDW Plt Count MPV Neutrophils % Lymphocytes % Monocytes % Eosinophils % Basophils % Lactic Acid Phosphorus Magnesium Creatine Kinase 11 L Troponin I < 0.02 B-Natriuretic Peptide 3144.29 H Anti-A Titer Cancelled Blood Type Cancelled Antibody Screen Cancelled Crossmatch See Detail Spec Expiration Date Cancelled 04/26/16 04/26/16 04/26/16 05:30 05:30 05:30 WBC 8.4 RBC 3.07 L D Hgb 8.2 L D Hct 26.8 L D MCV 87.3 MCHC 30.7 L RDW 18.6 H Plt Count 279 MPV 7.3 L Neutrophils % 92.9 H D Lymphocytes % 6.1 L D Monocytes % 0.6 L D Eosinophils % 0.0 D Basophils % 0.4 Lactic Acid 1.110 Phosphorus 5.2 H D Magnesium 2.9 H D Creatine Kinase 14 L Troponin I < 0.02 B-Natriuretic Peptide Anti-A Titer Blood Type Antibody Screen Crossmatch Spec Expiration Date 04/26/16 07:40 WBC RBC Hgb Hct MCV MCHC RDW Plt Count MPV Neutrophils % Lymphocytes % Monocytes % Eosinophils % Basophils % Lactic Acid Phosphorus Magnesium Creatine Kinase Troponin I B-Natriuretic Peptide Anti-A Titer Blood Type A POSITIVE Antibody Screen Negative Crossmatch See Detail Spec Expiration Date Active Medications Generic Name Dose Route Start Last Admin Trade Name Freq PRN Reason Stop Dose Admin Acetaminophen/Codeine Phosphate 1 tab 04/26/16 00:00 Tylenol # 3 - PO Q6H PRN PAIN Albuterol Sulfate 1 amp 04/26/16 00:00 04/26/16 10:50 Ventolin 0.083% Nebulizer Soln - NEB 1 amp Q4H PRN Administration Albuterol/Ipratropium 1 amp 04/26/16 06:00 04/26/16 07:03 Duoneb - NEB 1 amp TIDR LESLEE Administration Amlodipine Besylate 10 mg 04/26/16 10:00 04/26/16 10:21 Norvasc - PO 10 mg DAILY LESLEE Administration Aspirin 81 mg 04/26/16 10:00 04/26/16 10:25 Ecotrin - PO 81 mg DAILY LESLEE Administration Aztreonam 0.5 gm 04/26/16 02:00 Azactam (Restricted To Id) - IVPB Q8H-IV LESLEE Docusate Sodium 100 mg 04/26/16 10:00 04/26/16 10:24 Colace - PO 100 mg BID LESLEE Administration Duloxetine HCl 60 mg 04/26/16 10:00 04/26/16 10:25 Cymbalta - PO 60 mg DAILY LESLEE Administration Epoetin Keith 10,000 unit 04/26/16 10:00 Procrit - SQ MOWEFR@1000 LESLEE Ferrous Sulfate 325 mg 04/26/16 08:00 04/26/16 10:21 Feosol - PO 325 mg BIDWM LESLEE Administration Furosemide 40 mg 04/27/16 10:00 Lasix Injection - IVPB DAILY LESLEE Guaifenesin 600 mg 04/26/16 10:00 04/26/16 10:25 Mucinex - PO 600 mg BID LESLEE Administration Heparin Sodium (Porcine) 5,000 unit 04/26/16 10:00 04/26/16 10:26 Heparin - SQ Not Given BID LESLEE IV Flush 8 ml 04/26/16 00:00 Picc Line Flush IVPUSH PRN PRN Protocol Levofloxacin 250 mg 04/26/16 07:00 04/26/16 06:48 Levaquin - PO 250 mg AM LESLEE Administration Mirtazapine 7.5 mg 04/26/16 22:00 Remeron - PO HS LESLEE Non-Formulary Medication 1 gm 04/26/16 10:00 Vancomycin/0.9 % Sod Chloride [Vanco 1 Gram/250 Ml-0.9% Nacl] IV DAILY LESLEE Nystatin 1 applic 04/26/16 10:00 Nystop Powder - TP DAILY LESLEE Pantoprazole Sodium 40 mg 04/26/16 10:00 04/26/16 10:21 Protonix - PO 40 mg DAILY LESLEE Administration Polyethylene Glycol 17 gm 04/26/16 10:00 04/26/16 10:47 Miralax (For Daily Use) - PO Not Given DAILY LESLEE Prasugrel 10 mg 04/26/16 10:00 Effient - PO DAILY LESLEE Pregabalin 25 mg 04/26/16 10:00 04/26/16 10:26 Lyrica - PO 25 mg DAILY LESLEE Administration Fluticasone/Salmeterol 1 puff 04/26/16 10:00 Advair 100mcg/50mcg - IH BID LESLEE Senna 1 tab 04/26/16 10:00 04/26/16 11:30 Senna - PO 1 tab DAILY LESLEE Administration Sodium Chloride 2 spray 04/26/16 00:00 [place] Nasal [place] - NS Q12H PRN NASAL CONGESTION Torsemide 20 mg 04/26/16 10:00 04/26/16 11:29 Demadex - PO 20 mg DAILY LESLEE Administration ASSESSMENT/PLAN: 75 yo M wtih PMhx of O2 dependent COPD, HTN, HLD, CAD (s/p 2 stents), CHF, CRF , PVD, chronic lymphedema, pleural effusions requiring thoracentesis, anemia brought to ICU for hypoxia and productive cough. Neuro: * Alert and oriented. * Pain management Pulm: * o2 support for sat 88-92, * On 50% venti mask O2 sat 97% * bipap PRN * Nebulizers standing and prn * chest xray shows LLL infiltrate. * repeat ABG ID: hx of MDR mrsa bacteremia +hcap +uti * Flu screen(-) * cultures pending * Continue Aztreonam/Levaquin/Vanc * Occluded PICC removed. * Lactic acid = 1.1 * Nystatin to groin Renal: UTI/KARLOS * Gentle fluids as tolerated * Monitor electrolytes- repeat BMP in AM * Renal dose medication Cardiovascular: * cardiac enzymes have been (-) * AC with EFFIENT * daily ASA * ECHO done 03/30/16 shows normal LV/RV size and function, no wall motion abn., trace TR. and mild aortic root dilatation. * continue: * Amlodipine Besylate (Norvasc -) 10 mg PO DAILY * Furosemide (Lasix Injection -) 40 mg IVPB DAILY * Torsemide (Demadex -) 20 mg PO DAILY LESLEE Prophylactic * DVT with Heparin 5000U BID SQ DISPO: Stable for transfer to MED/Surg. Visit type - Emergency Visit Emergency Visit: Yes ED Registration Date: 04/26/16 Care time: The patient presented to the Emergency Department on the above date and was hospitalized for further evaluation of their emergent condition. - New Patient This patient is new to me today: Yes Date on this admission: 04/26/16 - Critical Care Critical Care patient: Yes Total Critical Care Time (in minutes): 31 Critical Care Statement: The care of this patient involved high complexity decision making to prevent further life threatening deterioration of the patient 's condition and/or to evalute & treat vital organ system(s) failure or risk of failure.
--- NOTE | 2016-04-26 12:01 | HP ---
PCP: Alejandro Sotomayor CHIEF COMPLAINT: Shortness of breath HISTORY OF PRESENT ILLNESS: This is a 75-year-old man who had a prolonged stay here 02/18/16-04/13/16 for acute hypercapnic respiratory failure, acute renal failure, severe sepsis, MRSA bacteremia from infected permacath, acute diastolic heart failure and bilateral pleural effusions. He was discharged to [facility] ([place], [place]) with a PICC for continued treatment with Azactam, Levaquin, Vancomycin. He was sent to the ER last night because of shortness of breath and hypoxia. He reports having a worsening cough with yellow sputum. PAST MEDICAL HISTORY CKD stage 4 Hypertension CAD Peripheral vascular disease Chronic diastolic heart failure COPD Obstructive sleep apnea Obesity-hypoventilation syndrome Lymphedema PAST SURGICAL HISTORY None Allergies Penicillins Allergy (Verified 04/25/16 18:40) HOME MEDICATIONS 3 Medication Instructions Recorded Acetaminophen W/ Codeine #3 1 tab PO Q6H PRN 02/18/16 [Tylenol # 3 -] Albuterol 0.083% Nebulizer Soni 1 amp NEB ASDIR PRN 02/18/16 [Ventolin 0.083% Nebulizer Soln -] Aspirin [Ecotrin] 81 mg PO DAILY 02/18/16 Duloxetine HCl 60 mg PO DAILY 02/18/16 Pregabalin [Lyrica] 25 mg PO DAILY 02/18/16 Acetaminophen [Tylenol .Regular 650 mg PO Q6H PRN #0 tablet 04/12/16 Strength -] Amlodipine Besylate [Norvasc -] 10 mg PO DAILY #30 tablet 04/12/16 Aztreonam [Azactam (Restricted To 0.5 gm IVPB Q8H-IV #9 vial 04/12/16 Id) -] Docusate Sodium [Colace -] 100 mg PO BID #60 capsule 04/12/16 Duloxetine HCl [Cymbalta -] 30 mg PO DAILY #30 capsule. 04/12/16 Pantoprazole Sodium [Protonix -] 40 mg PO DAILY tablet.ec 04/12/16 Picc Line Flush [Picc Line Flush -] 8 ml IVPUSH PRN PRN #0 ml 04/12/16 Polyethylene Glycol 3350 [Miralax 17 gm PO DAILY #1 bottle 04/12/16 119 gm Btl -] Sodium Chloride Nasal [place] [[place] 2 spray NS Q12H PRN #0 bottle 04/12/16 [place] -] Vancomycin/0.9 % Sod Chloride 1 gm IV DAILY #21 plast..bag 04/12/16 [Vanco 1 Gram/250 ml-0.9% NaCl] Epoetin Keith [Epogen] 10,000 unit SQ MOWEFR@1000 #12 dose 04/13/16 Ferrous Sulfate 325 mg PO BID 04/25/16 Guaifenesin Dm [Robitussin Dm] 10 ml PO Q4H 04/25/16 Guaifenesin [Mucinex] 600 mg PO BID 04/25/16 Levofloxacin [Levaquin] 250 mg PO DAILY 04/25/16 Mirtazapine [Remeron -] 7.5 mg PO HS 04/25/16 Prasugrel HCl [Effient] 10 mg PO DAILY 04/25/16 Pregabalin [Lyrica] 25 mg PO DAILY 04/25/16 Salmeterol/Fluticasone [Advair 1 inh PO BID 04/25/16 100Mcg/50Mcg -] Sennosides [Senna] 8.6 mg PO DAILY 04/25/16 Torsemide [Demadex -] 20 mg PO DAILY 04/25/16 Social History: Smoking: Former smoker Alcohol: None Drugs: None Recent Travel: No Family History Father - Parkinson disease REVIEW OF SYSTEMS CONSTITUTIONAL: Present: generalized weakness. Absent: fever, chills, diaphoresis, malaise, loss of appetite, weight change HEENT: Absent: rhinorrhea, nasal congestion, throat pain, throat swelling, difficulty swallowing, mouth swelling, ear pain, eye pain, visual changes CARDIOVASCULAR: Present: peripheral edema. Absent: chest pain, syncope, palpitations, lightheadedness RESPIRATORY: Present: cough, shortness of breath. Absent: orthopnea, wheezing, stridor, hemoptysis GASTROINTESTINAL: Absent: abdominal pain, abdominal distension, nausea, vomiting , diarrhea, constipation, melena, hematochezia GENITOURINARY: Absent: dysuria, frequency, urgency, hesitancy, hematuria, flank pain MUSCULOSKELETAL: Absent: myalgia, arthralgia, joint swelling, back pain, neck pain SKIN: Absent: rash, itching, pallor HEMATOLOGIC/IMMUNOLOGIC: Absent: easy bleeding, easy bruising, lymphadenopathy, frequent infections ENDOCRINE: Absent: unexplained weight gain, unexplained weight loss, heat intolerance, cold intolerance NEUROLOGIC: Absent: headache, focal weakness, paresthesias, dizziness, unsteady gait, seizure, mental status changes, bladder or bowel incontinence PSYCHIATRIC: Absent: anxiety, depression, suicidal or homicidal ideation, hallucinations. PHYSICAL EXAMINATION Vital Signs - 24 hr 04/26/16 04/26/16 04/26/16 01:16 04:25 04:40 Temperature 97.3 F L 97.3 F L Pulse Rate 98 H 98 H Pulse Rate [ 91 H Radial] Respiratory 22 22 22 Rate Blood Pressure 132/62 132/62 Blood Pressure 130/62 [Right Arm] O2 Sat by Pulse 94 L 94 L Oximetry (%) 04/26/16 04/26/16 04/26/16 06:00 08:00 08:37 Temperature Pulse Rate 86 86 Pulse Rate [ Radial] Respiratory 14 15 14 Rate Blood Pressure 122/59 122/60 Blood Pressure [Right Arm] O2 Sat by Pulse 94 L 90 L Oximetry (%) 04/26/16 04/26/16 10:00 10:23 Temperature 97.3 F L Pulse Rate 92 H 87 Pulse Rate [ Radial] Respiratory 32 H Rate Blood Pressure 146/61 Blood Pressure [Right Arm] O2 Sat by Pulse 97 Oximetry (%) GENERAL: Awake, alert, and fully oriented, in mild respiratory distress. HEAD: Normal with no signs of trauma. EYES: Pupils equal, round and reactive to light, extraocular movements intact, sclerae anicteric, conjunctivae clear. EARS, NOSE, THROAT: Ears normal, nares patent, oropharynx clear without exudates. Moist mucous membranes. NECK: Normal range of motion, supple without lymphadenopathy, JVD, or masses. LUNGS: Bilateral rhonchi. No accessory muscle use. HEART: Regular rate and rhythm, normal S1 and S2 without murmur, rub or gallop. ABDOMEN: Soft, nontender, not distended, normoactive bowel sounds, no guarding, no rebound, no masses. No hepatomegaly or splenomegaly. MUSCULOSKELETAL: Normal range of motion at all joints. No bony deformities or tenderness. No CVA tenderness. UPPER EXTREMITIES: 2+ pulses, warm, well-perfused. No cyanosis. No clubbing. Cap refill <2 seconds. No peripheral edema. LOWER EXTREMITIES: 2+ pulses, warm, well-perfused. No calf tenderness. No peripheral edema. NEUROLOGICAL: Cranial nerves II-XII intact. Normal speech. PSYCHIATRIC: Cooperative. Good eye contact. Appropriate mood and affect. SKIN: Warm, dry, normal turgor, no rashes or lesions noted. Laboratory Results - last 24 hr 04/26/16 04/26/16 04/26/16 02:00 02:00 05:30 WBC RBC Hgb Hct MCV MCHC RDW Plt Count MPV Neutrophils % Lymphocytes % Monocytes % Eosinophils % Basophils % Lactic Acid Phosphorus Magnesium Creatine Kinase 11 L Troponin I < 0.02 B-Natriuretic Peptide 3144.29 H Anti-A Titer Cancelled Blood Type Cancelled Antibody Screen Cancelled Crossmatch See Detail Spec Expiration Date Cancelled 04/26/16 04/26/16 04/26/16 05:30 05:30 05:30 WBC 8.4 RBC 3.07 L D Hgb 8.2 L D Hct 26.8 L D MCV 87.3 MCHC 30.7 L RDW 18.6 H Plt Count 279 MPV 7.3 L Neutrophils % 92.9 H D Lymphocytes % 6.1 L D Monocytes % 0.6 L D Eosinophils % 0.0 D Basophils % 0.4 Lactic Acid 1.110 Phosphorus 5.2 H D Magnesium 2.9 H D Creatine Kinase 14 L Troponin I < 0.02 B-Natriuretic Peptide Anti-A Titer Blood Type Antibody Screen Crossmatch Spec Expiration Date 04/26/16 07:40 WBC RBC Hgb Hct MCV MCHC RDW Plt Count MPV Neutrophils % Lymphocytes % Monocytes % Eosinophils % Basophils % Lactic Acid Phosphorus Magnesium Creatine Kinase Troponin I B-Natriuretic Peptide Anti-A Titer Blood Type A POSITIVE Antibody Screen Negative Crossmatch See Detail Spec Expiration Date Chest x-ray: LLL infiltrate. Improved congestion. Small bilateral effusions, improved. EKG: Sinus rhythm, rate 98. PVCs. RBBB. ASSESSMENT/PLAN: This is a 75-year-old man with a history of stage 4 CKD, HTN, CAD, PVD, chronic diastolic heart failure, COPD, obstructive sleep apnea, obesity-hypoventilation syndrome, lymphedema who was here 02/17-04/13 with severe sepsis, MRSA bacteremia , acute hypercapnic respiratory failure, acute renal failure and acute diastolic heart failure, was sent in from [facility] ([place], [place]) yesterday because of shortness of breath, cough and hypoxia. 1. Healthcare-associated pneumonia, UTI - Had recent MRSA bacteremia - On Azactam, Levaquin, Vancomycin - Oxygen, DuoNeb - ID consult - Follow up blood, urine cultures 2. Acute kidney injury on stage 4 CKD - IV fluid - Monitor BUN, creatinine 3. Anemia secondary to chronic illnes, CKD - Hemoglobin stable - Continue Epogen, ferrous sulfate 4. Chronic hypoxic and hypercapnic respiratory failure - Continue oxygen 5. CAD - Continue aspirin 6. Hypertension - Continue Norvasc 7. PVD 8. Chronic diastolic heart failure - Continue Torsemide 9. COPD 10. Obstructive sleep apnea 11. Obesity-hypoventilation syndrome Visit type - Emergency Visit Emergency Visit: Yes ED Registration Date: 04/26/16 Care time: The patient presented to the Emergency Department on the above date and was hospitalized for further evaluation of their emergent condition. - New Patient This patient is new to me today: Yes Date on this admission: 04/26/16 - Critical Care Critical Care patient: Yes Total Critical Care Time (in minutes): 35 Critical Care Statement: The care of this patient involved high complexity decision making to prevent further life threatening deterioration of the patient 's condition and/or to evalute & treat vital organ system(s) failure or risk of failure.
--- NOTE | 2016-04-26 14:53 | CONSULT ---
Consult Consult Specialty:: Pulmonary Reason for Consultation:: dyspnea - History of Present Illness Chief Complaint: shortness of breath,weakness History of Present Illness: 75 year old transferred from SNF because of dyspnea. No chest pain or palpitations, no fever. Small amount sputum production, no hemoptysis. Pt was in SNF (was hospitalized 02/17-04/13) for rehab and antibiotic Tx for MRSA sepsis PMH: Severe COPD: O2 dependent (2l/min) and steroid (Prednisone 10 mg /day) dependent Acute Renal Failure 02/22; required dialysis for fluid removal. Renal function recovered:pt off dialysis MRSA sepsis: S/P infected dialysis cath CAD-S/P 2 stents S/P CHF HTN CRF: baseline Creat 1.9 PVD with chronic lymphedema, Pleural effusions requiring thoracentesis (transudative fluid) Anemia. - Past Medical History [employer] WORK[employer]: Yes: Peripheral Neuropathy Cardio/Vascular: Yes: CAD, CHF (diastolic), HTN, Hyperlipdemia Pulmonary: Yes: COPD, O2 Dependent, Sleep Apnea Renal/: Yes: Renal Inusuff, Renal Calculi Dermatology: Yes: Cellulitis (Cellulitis lower extremiites during patient's hospitalization in February) Additional Medical History: Obesity - Past Surgical History Past Surgical History: Yes: None - Alcohol/Substance Use Hx Alcohol Use: No History of Substance Use: reports: None - Smoking History Smoking history: Former smoker Have you smoked in the past 12 months: No Aproximately how many cigarettes per day: 0 If you are a former smoker, when did you quit?: 6 years - Social History ADL: Independent 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 History of Recent Travel: No Home Medications - Allergies Allergies/Adverse Reactions: Allergies Allergy/AdvReac Type Severity Reaction Status Date / Time Penicillins Allergy Verified 04/25/16 18:40 - Home Medications Home Medications: Ambulatory Orders Acetaminophen W/ Codeine #3 [Tylenol # 3 -] 1 tab PO Q6H PRN 02/18/16 Albuterol 0.083% Nebulizer Soni [Ventolin 0.083% Nebulizer Soln -] 1 amp NEB ASDIR PRN 02/18/16 Aspirin [Ecotrin] 81 mg PO DAILY 02/18/16 Duloxetine HCl 60 mg PO DAILY 02/18/16 Pregabalin [Lyrica] 25 mg PO DAILY 02/18/16 Acetaminophen [Tylenol .Regular Strength -] 650 mg PO Q6H PRN #0 tablet Amlodipine Besylate [Norvasc -] 10 mg PO DAILY #30 tablet 04/12/16 Aztreonam [Azactam (Restricted To Id) -] 0.5 gm IVPB Q8H-IV #9 vial 04/12/16 Docusate Sodium [Colace -] 100 mg PO BID #60 capsule 04/12/16 Duloxetine HCl [Cymbalta -] 30 mg PO DAILY #30 capsule. 04/12/16 Pantoprazole Sodium [Protonix -] 40 mg PO DAILY tablet.ec 04/12/16 Picc Line Flush [Picc Line Flush -] 8 ml IVPUSH PRN PRN #0 ml 04/12/16 Polyethylene Glycol 3350 [Miralax 119 gm Btl -] 17 gm PO DAILY #1 bottle Sodium Chloride Nasal [place] [[place] Nasal [place] -] 2 spray NS Q12H PRN #0 bottle 04/12/16 Vancomycin/0.9 % Sod Chloride [Vanco 1 Gram/250 ml-0.9% NaCl] 1 gm IV DAILY #21 plast..bag 04/12/16 Epoetin [place] [Epogen] 10,000 unit SQ MOWEFR@1000 #12 dose 04/13/16 Ferrous Sulfate 325 mg PO BID 04/25/16 Guaifenesin Dm [Robitussin Dm] 10 ml PO Q4H 04/25/16 Guaifenesin [Mucinex] 600 mg PO BID 04/25/16 Levofloxacin [Levaquin] 250 mg PO DAILY 04/25/16 Mirtazapine [Remeron -] 7.5 mg PO HS 04/25/16 Prasugrel HCl [Effient] 10 mg PO DAILY 04/25/16 Pregabalin [Lyrica] 25 mg PO DAILY 04/25/16 Salmeterol/Fluticasone [Advair 100Mcg/50Mcg -] 1 inh PO BID 04/25/16 Sennosides [Senna] 8.6 mg PO DAILY 04/25/16 Torsemide [Demadex -] 20 mg PO DAILY 04/25/16 Family Disease History - Family Disease History Family Disease History: Other: Father (parkinson's disease) Physical Exam Vital Sings: Vital Signs Temperature 97.6 F 04/26/16 14:00 Pulse Rate 94 H 04/26/16 14:00 Respiratory Rate 33 H 04/26/16 14:00 Blood Pressure 111/58 04/26/16 14:00 O2 Sat by Pulse Oximetry (%) 97 04/26/16 10:23 Labs: CBC, BMP 04/26/16 05:30 Imaging - Results Chest X-ray: Report Reviewed, Image Reviewed (CM, left lower lung field infiltrate, pleural effusions) Problem List - Problems (1) Pneumonia Code(s): J18.9 - PNEUMONIA, UNSPECIFIED ORGANISM Qualifiers: Pneumonia type: due to unspecified organism Laterality: left Lung location: lower lobe of lung Qualified Code(s): J18.9 - Pneumonia, unspecified organism (2) Acute exacerbation of chronic obstructive pulmonary disease (COPD) Code(s): J44.1 - CHRONIC OBSTRUCTIVE PULMONARY DISEASE W (ACUTE) EXACERBATION (3) Anemia Code(s): D64.9 - ANEMIA, UNSPECIFIED (4) Chronic renal insufficiency Code(s): N18.9 - CHRONIC KIDNEY DISEASE, UNSPECIFIED (5) CAD (coronary artery disease) Code(s): I25.10 - ATHSCL HEART DISEASE OF [place] CORONARY ARTERY W/O ANG PCTRS Assessment/Plan Pneumonia-New infiltrate left lower lung field. Acute Exacerbation COPD- respiratory status improved post antibiotics and iv steroids in ER. Pt is O2 and steroid dependent Anemia-probably secondary to combination of chronic disease and bleeding Chronic Renal Disease: Creat. 2.3- increased from 1.9 baseline CAD-s/p 2 stents. H/o of CHF Suggest: Inhaled bronchodilators IV steroids with tapering O2 to maintain SaO2>90 Antibiotics per I.D. recommendation Transfuse PRN Thank you for referring this patient for consultation
--- NOTE | 2016-04-26 18:17 | CONSULT ---
Consult Consult Specialty:: infectious diseases Reason for Consultation:: resp failure,difficuilty breathing - History of Present Illness Chief Complaint: not feeling well History of Present Illness: 75-year-old man who had a prolonged stay here 02/18/16-04/13/16 for acute hypercapnic respiratory failure, acute renal failure, severe sepsis, MRSA bacteremia from infected permacath, acute diastolic heart failure and bilateral pleural effusions. He was discharged to [facility] with a PICC for continued treatment with Azactam, Levaquin, Vancomycin. He was sent to the ER last night because of shortness of breath and hypoxia. He reports having a worsening cough with yellow sputum. 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: Peripheral Neuropathy Cardio/Vascular: Yes: CAD, CHF (diastolic), HTN, Hyperlipdemia Pulmonary: Yes: COPD, O2 Dependent, Sleep Apnea Renal/: Yes: Renal Inusuff, Renal Calculi Dermatology: Yes: Cellulitis (Cellulitis lower extremiites during patient's hospitalization in February) Additional Medical History: Obesity - Past Surgical History Past Surgical History: Yes: None - Alcohol/Substance Use Hx Alcohol Use: No History of Substance Use: reports: None - Smoking History Smoking history: Former smoker Have you smoked in the past 12 months: No Aproximately how many cigarettes per day: 0 If you are a former smoker, when did you quit?: 6 years - Social History ADL: Independent 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 History of Recent Travel: No Home Medications - Allergies Allergies/Adverse Reactions: Allergies Allergy/AdvReac Type Severity Reaction Status Date / Time Penicillins Allergy Verified 04/25/16 18:40 - Home Medications Home Medications: Ambulatory Orders Acetaminophen W/ Codeine #3 [Tylenol # 3 -] 1 tab PO Q6H PRN 02/18/16 Albuterol 0.083% Nebulizer Soni [Ventolin 0.083% Nebulizer Soln -] 1 amp NEB ASDIR PRN 02/18/16 Aspirin [Ecotrin] 81 mg PO DAILY 02/18/16 Duloxetine HCl 60 mg PO DAILY 02/18/16 Pregabalin [Lyrica] 25 mg PO DAILY 02/18/16 Acetaminophen [Tylenol .Regular Strength -] 650 mg PO Q6H PRN #0 tablet Amlodipine Besylate [Norvasc -] 10 mg PO DAILY #30 tablet 04/12/16 Aztreonam [Azactam (Restricted To Id) -] 0.5 gm IVPB Q8H-IV #9 vial 04/12/16 Docusate Sodium [Colace -] 100 mg PO BID #60 capsule 04/12/16 Duloxetine HCl [Cymbalta -] 30 mg PO DAILY #30 capsule. 04/12/16 Pantoprazole Sodium [Protonix -] 40 mg PO DAILY tablet.ec 04/12/16 Picc Line Flush [Picc Line Flush -] 8 ml IVPUSH PRN PRN #0 ml 04/12/16 Polyethylene Glycol 3350 [Miralax 119 gm Btl -] 17 gm PO DAILY #1 bottle Sodium Chloride Nasal [place] [[place] Nasal [place] -] 2 spray NS Q12H PRN #0 bottle 04/12/16 Vancomycin/0.9 % Sod Chloride [Vanco 1 Gram/250 ml-0.9% NaCl] 1 gm IV DAILY #21 plast..bag 04/12/16 Epoetin Keith [Epogen] 10,000 unit SQ MOWEFR@1000 #12 dose 04/13/16 Ferrous Sulfate 325 mg PO BID 04/25/16 Guaifenesin Dm [Robitussin Dm] 10 ml PO Q4H 04/25/16 Guaifenesin [Mucinex] 600 mg PO BID 04/25/16 Levofloxacin [Levaquin] 250 mg PO DAILY 04/25/16 Mirtazapine [Remeron -] 7.5 mg PO HS 04/25/16 Prasugrel HCl [Effient] 10 mg PO DAILY 04/25/16 Pregabalin [Lyrica] 25 mg PO DAILY 04/25/16 Salmeterol/Fluticasone [Advair 100Mcg/50Mcg -] 1 inh PO BID 04/25/16 Sennosides [Senna] 8.6 mg PO DAILY 04/25/16 Torsemide [Demadex -] 20 mg PO DAILY 04/25/16 Family Disease History - Family Disease History Family Disease History: Other: Father (parkinson's disease) Review of Systems - Review of Systems Constitutional: reports: Weakness Eyes: reports: No Symptoms HENT: reports: No Symptoms Neck: reports: No Symptoms Cardiovascular: reports: No Symptoms Respiratory: reports: SOB, SOB on Exertion Gastrointestinal: reports: No Symptoms Genitourinary: reports: No Symptoms Musculoskeletal: reports: No Symptoms Neurological: reports: No Symptoms Endocrine: reports: No Symptoms Hematology/Lymphatic: reports: No Symptoms Psychiatric: reports: No Symptoms Physical Exam Vital Signs: Vital Signs Temperature 97.6 F 04/26/16 14:00 Pulse Rate 94 H 04/26/16 14:00 Respiratory Rate 33 H 04/26/16 14:00 Blood Pressure 111/58 04/26/16 14:00 O2 Sat by Pulse Oximetry (%) 97 04/26/16 10:23 Constitutional: Yes: Well Nourished, Obese Eyes: Yes: WNL, Conjunctiva Clear HENT: Yes: Atraumatic Cardiovascular: Yes: Regular Rate and Rhythm Respiratory: Yes: On Venti-Mask, Poor Air Entry (both lower lobes), SOB Gastrointestinal: Yes: Normal Bowel Sounds, Soft Musculoskeletal: Yes: WNL Extremities: Yes: Other Integumentary: Yes: Venous Stasis Changes, Other Neurological: Yes: Alert, Oriented Psychiatric: Yes: Alert Labs: CBC, BMP 04/26/16 05:30 Imaging - Results Chest X-ray: Report Reviewed, Image Reviewed Assessment/Plan patient evaluated UTI Acute on Chronic LV Diastolic Heart Failure Recent MRSA bacteremia CAD Acute on Chronic Renal Failure COPD Anemia breathing difficulty plan will check vanco level tomorrow to see how many days patient had vanco will look at xray tomorrow patient probably does not have pna will consider stoping aztreonam cc time 40 min
[2016-04-26] MEDS ORDERED: SODIUM CHLORIDE NASAL SPRAY 44 ML BOTTLE NS PRN ×2 (19:03)
[2016-04-26] MEDS ORDERED: ALBUTEROL SO4 0.083% IH SOL 2.5 MG/3 ML VIAL.NEB. NEB PRN (19:03)
[2016-04-26] MEDS ORDERED: ACETAMINOPHEN WITH CODEINE 300MG/30MG TABLET PO PRN ×2 (19:03)
[2016-04-26] MEDS ORDERED: HEPARIN NA (PORCINE) 5,000 UNITS/ML 1ML VIAL ONE (20:52)
[2016-04-26] MEDS: DOCUSATE SODIUM 100 MG CAPSULE (FP) PO SCH (21:25)
[2016-04-26] MEDS: guaiFENesin 600 MG TABLET.ER (FP) PO SCH (21:25)
[2016-04-26] MEDS: HEPARIN NA (PORCINE) 5,000 UNITS/ML 1ML VIAL SQ SCH (21:26)
[2016-04-26] MEDS: FLUTICASONE/SALMETEROL 100 MCG/50 MCG DISKUS IH SCH (21:28)
[2016-04-26] MEDS ORDERED: MIRTAZAPINE 15 MG TABLET (FP) PO SCH ×2 (22:00)
[2016-04-27] MEDS ORDERED: AZTREONAM 1 GM VIAL (RESTRICTED TO ID) IVPB SCH (02:00)
[2016-04-27] MEDS ORDERED: PT OWN MED DRAWER 7, Y5N ONE ×3 (02:20→22:36)
[2016-04-27] MEDS: AZTREONAM 0.5 GM in DEXTROSE 5%-WATER - 50 ML IVPB SCH ×2 (02:30→09:09)
[2016-04-27 06:06] LABS: MCH 26.8 pg (25.7-33.7); MCHC 31.2 g/dl (32.0-35.9); MEAN PLT VOLUME 7.2 fl (7.5-11.1); PLATELET COUNT 282 K/MM3 (134-434); RDW 18.6 % (11.9-15.9); WHITE BLOOD COUNT 9.2 K/mm3 (4.0-10.0)
[2016-04-27] MEDS: ALBUTEROL SO4 2.5/IPRATROPIUM 0.5 INH SOL 3 ML VIAL.NEB. NEB SCH ×3 (06:43→22:04)
[2016-04-27] MEDS ORDERED: LEVOFLOXACIN 250 MG TABLET (FP) PO SCH (07:00)
[2016-04-27 07:29] LABS: ALBUMIN 2.2 g/dl (3.4-5.0); BILIRUBIN,TOTAL 0.3 mg/dL (0.2-1.0); CREATININE 2.9 mg/dL (0.7-1.3); MAGNESIUM 2.8 mg/dL (1.8-2.4); TOT PROT 5.2 g/dl (6.4-8.2)
--- NOTE | 2016-04-27 08:25 | PN ---
Teaching Attending Note Name of Resident: Jenelle Nava ATTENDING PHYSICIAN STATEMENT I saw and evaluated the patient. I reviewed the resident's note and discussed the case with the resident. I agree with the resident's findings and plan as documented. SUBJECTIVE: No new events overnight. s/p PICC line removal yesterday. On VM. OBJECTIVE: Vital Signs Temperature 98.2 F 04/27/16 06:00 Pulse Rate 82 04/27/16 06:00 Respiratory Rate 21 04/27/16 08:12 Blood Pressure 123/61 04/27/16 06:00 O2 Sat by Pulse Oximetry (%) 95 04/27/16 08:12 GENERAL: The patient is awake, alert, and fully oriented, on no acute distress. Morbidly obese. HEAD: Normal with no signs of trauma. EYES: PERRL, extraocular movements intact, sclera anicteric, conjunctiva clear. ENT: Ears normal, oropharynx clear without exudates, moist mucous membranes. NECK: Trachea midline, full range of motion, supple. LUNGS: Breath sounds equal, rhonchi b/l , no accessory muscle use, on VM. HEART: Regular rate and rhythm, S1, S2 without murmur, rub or gallop. ABDOMEN: Soft, Nt,ND, normoactive bowel sounds, no guarding, no rebound, no hepatosplenomegaly, no masses appreciated EXTREMITIES: 2+ pulses, warm, well-perfused, no edema. NEUROLOGICAL: Cranial nerves II through XII grossly intact. Normal speech, gait not observed. PSYCH: Normal mood, normal affect. SKIN: Warm, dry, normal turgor, no rashes or lesions noted CBCD WBC 9.2 K/mm3 (4.0-10.0) 04/27/16 05:05 RBC 2.75 M/mm3 (4.00-5.60) L 04/27/16 05:05 Hgb 7.4 GM/dL (11.7-16.9) L 04/27/16 05:05 Hct 23.6 % (35.4-49) L 04/27/16 05:05 MCV 86.0 fl (80-96) 04/27/16 05:05 MCHC 31.2 g/dl (32.0-35.9) L 04/27/16 05:05 RDW 18.6 % (11.9-15.9) H 04/27/16 05:05 Plt Count 282 K/MM3 (134-434) 04/27/16 05:05 MPV 7.2 fl (7.5-11.1) L 04/27/16 05:05 CMP Sodium 140 mmol/L (136-145) 04/27/16 05:05 Potassium 4.2 mmol/L (3.5-5.1) 04/27/16 05:05 Chloride 97 mmol/L (98-107) L 04/27/16 05:05 Carbon Dioxide 34 mmol/L (21-32) H 04/27/16 05:05 Anion Gap 9 (8-16) 04/27/16 05:05 BUN 60 mg/dL (7-18) H D 04/27/16 05:05 Creatinine 2.9 mg/dL (0.7-1.3) H D 04/27/16 05:05 Creat Clearance w eGFR 21.44 (>60) 04/27/16 05:05 Random Glucose 132 mg/dL (74-106) H D 04/27/16 05:05 Calcium 8.0 mg/dL (8.5-10.1) L 04/27/16 05:05 Total Bilirubin 0.3 mg/dL (0.2-1.0) D 04/27/16 05:05 AST 11 U/L (15-37) L 04/27/16 05:05 ALT 9 U/L (12-78) L 04/27/16 05:05 Alkaline Phosphatase 123 U/L (45-117) H 04/27/16 05:05 Total Protein 5.2 g/dl (6.4-8.2) L 04/27/16 05:05 Albumin 2.2 g/dl (3.4-5.0) L 04/27/16 05:05 CARDIAC ENZYMES Creatine Kinase 14 IU/L (39-308) L 04/26/16 05:30 Troponin I < 0.02 ng/ml (0.00-0.05) 04/26/16 05:30 Current Medications Generic Name Dose Route Start Last Admin Trade Name Freq PRN Reason Stop Dose Admin Acetaminophen/Codeine Phosphate 1 tab 04/26/16 19:03 Tylenol # 3 - PO Q6H PRN PAIN Albuterol Sulfate 1 amp 04/26/16 19:03 Ventolin 0.083% Nebulizer Soln - NEB Q4H PRN SHORT OF BREATH/WHEEZING Albuterol/Ipratropium 1 amp 04/26/16 22:00 04/27/16 06:43 Duoneb - NEB 1 amp TIDR LESLEE Administration Amlodipine Besylate 10 mg 04/27/16 10:00 Norvasc - PO DAILY [facility] Aspirin 81 mg 04/27/16 10:00 Ecotrin - PO DAILY [facility] Docusate Sodium 100 mg 04/26/16 22:00 04/26/16 21:25 Colace - PO 100 mg BID LESLEE Administration Duloxetine HCl 60 mg 04/27/16 10:00 Cymbalta - PO DAILY [facility] Epoetin Keith 10,000 unit 04/28/16 10:00 Procrit - SQ MOWEFR@1000 [facility] Ferrous Sulfate 325 mg 04/27/16 08:00 Feosol - PO BIDWM [facility] Furosemide 40 mg 04/27/16 10:00 Lasix Injection - IVPB DAILY [facility] Guaifenesin 600 mg 04/26/16 22:00 04/26/16 21:25 Mucinex - PO 600 mg BID LESLEE Administration Heparin Sodium (Porcine) 5,000 unit 04/26/16 22:00 04/26/16 21:26 Heparin - SQ Not Given BID [facility] Aztreonam 0.5 gm/ Dextrose 50 mls @ 100 mls/hr 04/27/16 02:00 04/27/16 02:30 IVPB 100 mls/hr Q8H-IV LESLEE Administration Levofloxacin 250 mg 04/27/16 07:00 04/27/16 06:46 Levaquin - PO 250 mg AM LESLEE Administration Methylprednisolone Sodium Succinate 20 mg 04/27/16 10:00 Solu-Medrol - IVPB DAILY [facility] Mirtazapine 7.5 mg 04/26/16 22:00 04/26/16 21:26 Remeron - PO 7.5 mg HS [facility] Administration Non-Formulary Medication 1 gm 04/27/16 10:00 Vancomycin/0.9 % Sod Chloride [Vanco 1 Gram/250 Ml-0.9% Nacl] IV DAILY [facility] Nystatin 1 applic 04/27/16 10:00 Nystop Powder - TP DAILY [facility] Pantoprazole Sodium 40 mg 04/27/16 10:00 Protonix - PO DAILY [facility] Polyethylene Glycol 17 gm 04/27/16 10:00 Miralax (For Daily Use) - PO DAILY [facility] Prasugrel 10 mg 04/27/16 10:00 Effient - PO DAILY [facility]E Pregabalin 25 mg 04/27/16 10:00 Lyrica - PO DAILY [facility] Fluticasone/Salmeterol 1 puff 04/26/16 22:00 04/26/16 21:28 Advair 100mcg/50mcg - IH 1 puff BID [facility] Administration Senna 1 tab 04/27/16 10:00 Senna - PO DAILY [facility]ESLEE Sodium Chloride 2 spray 04/26/16 19:03 [place] Nasal [place] - NS Q12H PRN NASAL CONGESTION Torsemide 20 mg 04/27/16 10:00 Demadex - PO DAILY [facility] Medication Instructions Recorded Acetaminophen W/ Codeine #3 1 tab PO Q6H PRN 02/18/16 [Tylenol # 3 -] Albuterol 0.083% Nebulizer Soni 1 amp NEB ASDIR PRN 02/18/16 [Ventolin 0.083% Nebulizer Soln -] Aspirin [Ecotrin] 81 mg PO DAILY 02/18/16 Duloxetine HCl 60 mg PO DAILY 02/18/16 Pregabalin [Lyrica] 25 mg PO DAILY 02/18/16 Acetaminophen [Tylenol .Regular 650 mg PO Q6H PRN #0 tablet 04/12/16 Strength -] Amlodipine Besylate [Norvasc -] 10 mg PO DAILY #30 tablet 04/12/16 Aztreonam [Azactam (Restricted To 0.5 gm IVPB Q8H-IV #9 vial 04/12/16 Id) -] Docusate Sodium [Colace -] 100 mg PO BID #60 capsule 04/12/16 Duloxetine HCl [Cymbalta -] 30 mg PO DAILY #30 capsule. 04/12/16 Pantoprazole Sodium [Protonix -] 40 mg PO DAILY tablet.ec 04/12/16 Picc Line Flush [Picc Line Flush -] 8 ml IVPUSH PRN PRN #0 ml 04/12/16 Polyethylene Glycol 3350 [Miralax 17 gm PO DAILY #1 bottle 04/12/16 119 gm Btl -] Sodium Chloride Nasal [place] [[place] 2 spray NS Q12H PRN #0 bottle 04/12/16 [place] Nas[place] -] Vancomycin/0.9 % Sod Chloride 1 gm IV DAILY #21 plast..bag 04/12/16 [Vanco 1 Gram/250 ml-0.9% NaCl] Epoetin Keith [Epogen] 10,000 unit SQ MOWEFR@1000 #12 dose 04/13/16 Ferrous Sulfate 325 mg PO BID 04/25/16 Guaifenesin Dm [Robitussin Dm] 10 ml PO Q4H 04/25/16 Guaifenesin [Mucinex] 600 mg PO BID 04/25/16 Levofloxacin [Levaquin] 250 mg PO DAILY 04/25/16 Mirtazapine [Remeron -] 7.5 mg PO HS 04/25/16 Prasugrel HCl [Effient] 10 mg PO DAILY 04/25/16 Pregabalin [Lyrica] 25 mg PO DAILY 04/25/16 Salmeterol/Fluticasone [Advair 1 inh PO BID 04/25/16 100Mcg/50Mcg -] Sennosides [Senna] 8.6 mg PO DAILY 04/25/16 Torsemide [Demadex -] 20 mg PO DAILY 04/25/16 Chest x-ray: Vascular congestion. Bilateral effusions. Urine Test Results Urine Color Brown 04/25/16 20:54 Urine Appearance Clear 04/25/16 20:54 Urine pH 5.5 (5.0-8.0) 04/25/16 20:54 Ur Specific [place] 1.025 (1.001-1.035) 04/25/16 20:54 Urine Protein 2+ (NEGATIVE) H 04/25/16 20:54 Urine Glucose (UA) Negative (NEGATIVE) 04/25/16 20:54 Urine Ketones Negative (NEGATIVE) 04/25/16 20:54 Urine Blood 3+ (NEGATIVE) H 04/25/16 20:54 Urine Nitrite Negative (NEGATIVE) 04/25/16 20:54 Urine Bilirubin 1+ (NEGATIVE) H 04/25/16 20:54 Ur Leukocyte Esterase 2+ (NEGATIVE) H 04/25/16 20:54 Urine RBC 56 /hpf (0-3) 04/25/16 20:54 Urine WBC 981 /hpf (3-5) 01/17/17 20:54 ASSESSMENT/PLAN: This is a 75-year-old man with a history of stage 4 CKD, HTN, CAD, PVD, chronic diastolic heart failure, COPD, obstructive sleep apnea, obesity-hypoventilation syndrome, lymphedema who was here 02/17-04/13 with severe sepsis, MRSA bacteremia , acute hypercapnic respiratory failure, acute renal failure and acute diastolic heart failure, was sent in from [facility] due to having shortness of breath, cough and hypoxia. # Healthcare-associated pneumonia with recent MRSA bacteremia continue Azactam , Levaquin, Vancomycin day 1 , Oxygen, DuoNeb , ID consult , Follow up blood, urine cultures # Acute UTI continue IV antibiotics ,urine cultures pending # Acute over chronic kidney injury on stage 4 CKD on Torsemide , nephrology consultation appreciated # Anemia secondary to chronic illness, CKD, s/p 1 u PRBC # Hx of Chronic hypoxic and hypercapnic respiratory failure on VM continue , Bipap if needed # CAD/chronic CHF cardiology on the case # Hypertension cont home meds # Obstructive sleep apnea: on oxygen, Bipap DVT PPX; Heparin 5000 u SQ Q8h patient is in ICU
[2016-04-27] MEDS: FLUTICASONE/SALMETEROL 100 MCG/50 MCG DISKUS IH SCH ×2 (09:09→22:40)
[2016-04-27] MEDS: guaiFENesin 600 MG TABLET.ER (FP) PO SCH ×2 (09:11→22:41)
[2016-04-27] MEDS: HEPARIN NA (PORCINE) 5,000 UNITS/ML 1ML VIAL SQ SCH ×3 (09:20→22:41)
[2016-04-27] MEDS: DOCUSATE SODIUM 100 MG CAPSULE (FP) PO SCH ×2 (09:25→22:41)
[2016-04-27] MEDS ORDERED: PREGABALIN 25 MG CAPSULE PO SCH (10:00)
[2016-04-27] MEDS ORDERED: amLODIPine BESYLATE 10 MG TABLET (FP) PO SCH (10:00)
[2016-04-27] MEDS ORDERED: PRASUGREL HCL 10 MG TAB PO SCH (10:00)
[2016-04-27] MEDS ORDERED: TORSEMIDE 20 MG TABLET (FP) PO SCH (10:00)
[2016-04-27] MEDS ORDERED: NYSTATIN POWDER 100,000 UNITS/GM - 15 GM TOPICAL POWDER TP SCH (10:00)
[2016-04-27] MEDS ORDERED: FUROSEMIDE 40 MG/4 ML INJECTABLE VIAL IVPB SCH ×2 (10:00)
[2016-04-27] MEDS ORDERED: ASPIRIN COATED 81 MG TABLET.EC PO SCH (10:00)
[2016-04-27] MEDS ORDERED: DULoxetine HCL 30 MG CAPSULE.DR (FP) PO SCH (10:00)
[2016-04-27] MEDS ORDERED: POLYETHYLENE GLYCOL 3350 119 GM BTL PO SCH (10:00)
[2016-04-27] MEDS ORDERED: PANTOPRAZOLE 40 MG TABLET (FP) PO SCH (10:00)
[2016-04-27] MEDS ORDERED: methylPREDNISolone NA SUCC 40 MG/1 ML VIAL IVPB SCH (10:00)
[2016-04-27] MEDS ORDERED: SENNOSIDES 8.6MG TABLET (FP) PO SCH (10:00)
[2016-04-27] MEDS ORDERED: FUROSEMIDE 40 MG/4 ML INJECTABLE VIAL IVPB ONE ×2 (10:20)
--- NOTE | 2016-04-27 11:40 | CONSULT ---
Consult - text type - Consultation Consultation Note: Renal Consult for KARLOS on CKD This is a 75 year old Gentleman with PMhx of CKD (Hx of KARLOS requiring dialysis) , Hypertension, COPD on O2, BPH, Gout, MRSA Bactermia from catheter site infection, CHF presented with SOB and cough and found to have acute on chronic anemia and KARLOS with BUN/Cr of 41/2.3. I saw the patient in the [facility] last wek and Cr was 1.6 on 04/18/2016. Pt was maintained on Torsemide 40mg Daily there. He reports a non-productive cough. Reports having a fever at the [facility] but no fevers recorded in the hosptial. No chest pain, Abd pain, N/V/D. Clifford in place with yellow urine. No NSAID use or contrast exposure. Was on IV Vanco in [place]. PMhx: as above Allergies: NKDA Family hx: NC Social hx: No T/A/D ROS: as per HPI, all other pertinent ros negative Home Meds: Vital Signs Temperature 97.3 F L 04/27/16 10:00 Pulse Rate 85 04/27/16 10:00 Respiratory Rate 22 04/27/16 10:00 Blood Pressure 115/68 04/27/16 10:00 O2 Sat by Pulse Oximetry (%) 94 L 04/27/16 09:36 Intake & Output 04/24/16 04/25/16 04/26/16 04/27/16 23:59 23:59 23:59 23:59 Intake Total 740 290 Output Total 700 200 Balance 40 90 Weight 280 lb 222 lb 3.2 oz 227 lb 4.8 oz Gen: NAD on Ventimask HEENT: NC/AT, No JVD, Neck Supple CVS: RRR, No M/R Lungs: Dec BS at lung bases, + course BS, no wheeze Abd: soft Obese, NT/ND Ext: Trace edema in LE, 1+ edema in the sacrum : Clifford in place, no bladder distension Neuro: AAOx3, no focal defects CBC, BMP 04/27/16 05:05 04/27/16 05:05 Laboratory Tests 04/27/16 05:05 Calcium 8.0 L Phosphorus 4.0 D Magnesium 2.8 H Albumin 2.2 L Current Medications Acetaminophen/Codeine Phosphate (Tylenol # 3 -) 1 tab PO Q6H PRN PRN Reason: PAIN Albuterol Sulfate (Ventolin 0.083% Nebulizer Soln -) 1 amp NEB Q4H PRN PRN Reason: SHORT OF BREATH/WHEEZING Albuterol/Ipratropium (Duoneb -) 1 amp NEB TIDR [facility] Last Admin: 04/27/16 06:43 Dose: 1 amp Amlodipine Besylate (Norvasc -) 10 mg PO DAILY [facility] Last Admin: 04/27/16 09:20 Dose: 10 mg Aspirin (Ecotrin -) 81 mg PO DAILY [facility] Last Admin: 04/27/16 09:20 Dose: 81 mg Docusate Sodium (Colace -) 100 mg PO BID [facility] Last Admin: 04/27/16 09:25 Dose: 100 mg Duloxetine HCl (Cymbalta -) 60 mg PO DAILY [facility] Last Admin: 04/27/16 09:21 Dose: 60 mg Epoetin Keith (Procrit -) 10,000 unit SQ MOWEFR@1000 [facility] Ferrous Sulfate (Feosol -) 325 mg PO BIDWM [facility] Furosemide (Lasix Injection -) 40 mg IVPB DAILY [facility] Last Admin: 04/27/16 09:19 Dose: 40 mg Furosemide (Lasix Injection -) 40 mg IVPB ONCE ONE Stop: 04/27/16 10:21 Guaifenesin (Mucinex -) 600 mg PO BID [facility] Last Admin: 04/27/16 09:11 Dose: 600 mg Heparin Sodium (Porcine) (Heparin -) 5,000 unit SQ BID [facility] Last Admin: 04/27/16 09:20 Dose: Not Given Aztreonam 0.5 gm/ Dextrose 50 mls @ 100 mls/hr IVPB Q8H-IV [facility] Last Admin: 04/27/16 09:09 Dose: 100 mls/hr Levofloxacin (Levaquin -) 250 mg PO AM [facility] Last Admin: 04/27/16 06:46 Dose: 250 mg Methylprednisolone Sodium Succinate (Solu-Medrol -) 20 mg IVPB DAILY [facility] Last Admin: 04/27/16 09:23 Dose: 20 mg Mirtazapine (Remeron -) 7.5 mg PO HS [facility] Last Admin: 04/26/16 21:26 Dose: 7.5 mg Non-Formulary Medication (Vancomycin/0.9 % Sod Chloride [Vanco 1 Gram/250 Ml-0.9 % Nacl]) 1 gm IV DAILY [facility] Nystatin (Nystop Powder -) 1 applic TP DAILY [facility] Last Admin: 04/27/16 09:12 Dose: 1 applic Pantoprazole Sodium (Protonix -) 40 mg PO DAILY [facility] Last Admin: 04/27/16 09:18 Dose: 40 mg Polyethylene Glycol (Miralax (For Daily Use) -) 17 gm PO DAILY [facility] Prasugrel (Effient -) 10 mg PO DAILY [facility] Last Admin: 04/27/16 09:10 Dose: 10 mg Pregabalin (Lyrica -) 25 mg PO DAILY [facility] Last Admin: 04/27/16 09:19 Dose: 25 mg Fluticasone/Salmeterol (Advair 100mcg/50mcg -) 1 puff IH BID [facility] Last Admin: 04/27/16 09:09 Dose: 1 puff Senna (Senna -) 1 tab PO DAILY [facility] Last Admin: 04/27/16 09:22 Dose: 1 tab Sodium Chloride ([place] Nasal [place] -) 2 spray NS Q12H PRN PRN Reason: NASAL CONGESTION Torsemide (Demadex -) 20 mg PO DAILY [facility] Last Admin: 04/27/16 09:21 Dose: 20 mg A/P 75 year old Gentleman with PMhx of CKD (Hx of KARLOS requiring dialysis), Hypertension, COPD on O2, BPH, Gout, MRSA Bactermia from catheter site infection , CHF presented with SOB and cough and found to have acute on chronic anemia and KARLOS with BUN/Cr of 41/2.3. #Acute on Chronic Renal Insufficiency in setting of acute anemia/PNA and CHF Check Urine for FeUrea, UPCR to r/o ATN Strict I and O continue oral diuretics for now as pt does not appear to be acutely decompensated (volume status looks much improved from prior admission. 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
--- NOTE | 2016-04-27 11:51 | PN ---
Progress Note, Physician History of Present Illness: Pt with recent long hospital stay for respiratory failure and renal failure requiring temporary HD, now admitted with sob, anemia from [place]. seen and examined today in nad. venti mask in place. states he is feeling better since admission. no overnight events. no new complaints. - Current Medication List Current Medications: Active Medications Acetaminophen/Codeine Phosphate (Tylenol # 3 -) 1 tab PO Q6H PRN PRN Reason: PAIN Albuterol Sulfate (Ventolin 0.083% Nebulizer Soln -) 1 amp NEB Q4H PRN PRN Reason: SHORT OF BREATH/WHEEZING Albuterol/Ipratropium (Duoneb -) 1 amp NEB TIDR [facility] Last Admin: 04/27/16 06:43 Dose: 1 amp Amlodipine Besylate (Norvasc -) 10 mg PO DAILY [facility] Last Admin: 04/27/16 09:20 Dose: 10 mg Aspirin (Ecotrin -) 81 mg PO DAILY [facility] Last Admin: 04/27/16 09:20 Dose: 81 mg Docusate Sodium (Colace -) 100 mg PO BID [facility] Last Admin: 04/27/16 09:25 Dose: 100 mg Duloxetine HCl (Cymbalta -) 60 mg PO DAILY [facility] Last Admin: 04/27/16 09:21 Dose: 60 mg Epoetin Keith (Procrit -) 10,000 unit SQ MOWEFR@1000 [facility] Ferrous Sulfate (Feosol -) 325 mg PO BIDWM [facility] Furosemide (Lasix Injection -) 40 mg IVPB DAILY [facility] Last Admin: 04/27/16 09:19 Dose: 40 mg Furosemide (Lasix Injection -) 40 mg IVPB ONCE ONE Stop: 04/27/16 10:21 Guaifenesin (Mucinex -) 600 mg PO BID [facility] Last Admin: 04/27/16 09:11 Dose: 600 mg Heparin Sodium (Porcine) (Heparin -) 5,000 unit SQ BID [facility] Last Admin: 04/27/16 09:20 Dose: Not Given Aztreonam 0.5 gm/ Dextrose 50 mls @ 100 mls/hr IVPB Q8H-IV [facility] Last Admin: 04/27/16 09:09 Dose: 100 mls/hr Levofloxacin (Levaquin -) 250 mg PO AM [facility] Last Admin: 04/27/16 06:46 Dose: 250 mg Methylprednisolone Sodium Succinate (Solu-Medrol -) 20 mg IVPB DAILY [facility] Last Admin: 04/27/16 09:23 Dose: 20 mg Mirtazapine (Remeron -) 7.5 mg PO HS [facility] Last Admin: 04/26/16 21:26 Dose: 7.5 mg Non-Formulary Medication (Vancomycin/0.9 % Sod Chloride [Vanco 1 Gram/250 Ml-0.9 % Nacl]) 1 gm IV DAILY [facility] Nystatin (Nystop Powder -) 1 applic TP DAILY [facility] Last Admin: 04/27/16 09:12 Dose: 1 applic Pantoprazole Sodium (Protonix -) 40 mg PO DAILY [facility] Last Admin: 04/27/16 09:18 Dose: 40 mg Polyethylene Glycol (Miralax (For Daily Use) -) 17 gm PO DAILY [facility] Prasugrel (Effient -) 10 mg PO DAILY [facility] Last Admin: 04/27/16 09:10 Dose: 10 mg Pregabalin (Lyrica -) 25 mg PO DAILY [facility] Last Admin: 04/27/16 09:19 Dose: 25 mg Fluticasone/Salmeterol (Advair 100mcg/50mcg -) 1 puff IH BID [facility] Last Admin: 04/27/16 09:09 Dose: 1 puff Senna (Senna -) 1 tab PO DAILY [facility] Last Admin: 04/27/16 09:22 Dose: 1 tab Sodium Chloride ([place] Nasal [place] -) 2 spray NS Q12H PRN PRN Reason: NASAL CONGESTION Torsemide (Demadex -) 20 mg PO DAILY [facility] Last Admin: 04/27/16 09:21 Dose: 20 mg - Objective Vital Signs: Vital Signs Temperature 97.3 F L 04/27/16 10:00 Pulse Rate 85 04/27/16 10:00 Respiratory Rate 22 04/27/16 10:00 Blood Pressure 115/68 04/27/16 10:00 O2 Sat by Pulse Oximetry (%) 94 L 04/27/16 09:36 Constitutional: Yes: No Distress, Calm, Obese Eyes: Yes: Conjunctiva Clear, EOM Intact, PERRL HENT: Yes: Atraumatic, Normocephalic Neck: Yes: Supple, Trachea Midline Cardiovascular: Yes: Regular Rate and Rhythm, S1, S2. No: Bradycardia, Tachycardia, Pulse Irregular, Bruit, JVD, Gallop, Murmur, Rub, S3, S4, Varicosities Respiratory: Yes: Regular, Diminished, On Venti-Mask, Rales, Rhonchi. No: SOB, Wheezes Gastrointestinal: Yes: Normal Bowel Sounds, Soft. No: Distention, Tenderness Musculoskeletal: Yes: Muscle Weakness Extremities: Yes: Other (chronic venous stasis skin changes) Edema: Yes Edema: LLE: Trace, RLE: Trace Peripheral Pulses WNL: Yes Peripheral Pulses: Left Doralis Pedis: 2+, Right Dorsalis Pedis: 2+ Integumentary: Yes: Venous Stasis Changes Neurological: Yes: Alert, Oriented Psychiatric: Yes: Alert, Oriented Labs: CBC, BMP 04/27/16 05:05 04/27/16 05:05 - ....Imaging Chest X-ray: Report Reviewed, Image Reviewed EKG: Report Reviewed, Image Reviewed ([id number]/25 [id number], artifact, rbbb, nonspecific ST abnl) Other: Report Reviewed, Image Reviewed (tele-nsr, frequent apcs, pvcs, short runs psvt) Problem List - Problems (1) Acute exacerbation of chronic obstructive pulmonary disease (COPD) Code(s): J44.1 - CHRONIC OBSTRUCTIVE PULMONARY DISEASE W (ACUTE) EXACERBATION (2) Anemia Code(s): D64.9 - ANEMIA, UNSPECIFIED (3) CAD (coronary artery disease) Code(s): I25.10 - ATHSCL HEART DISEASE OF [place] CORONARY ARTERY W/O ANG PCTRS (4) Chronic kidney disease (CKD) stage G3a/A2, moderately decreased glomerular filtration rate (GFR) between 45-59 mL/min/1.73 square meter and albuminuria creatinine ratio between 30-299 mg/g Code(s): N18.3 - CHRONIC KIDNEY DISEASE, STAGE 3 (MODERATE) (5) Pneumonia Code(s): J18.9 - PNEUMONIA, UNSPECIFIED ORGANISM Qualifiers: Pneumonia type: due to unspecified organism Laterality: left Lung location: lower lobe of lung Qualified Code(s): J18.9 - Pneumonia, unspecified organism (6) Acute and chronic respiratory failure ([id number]) Code(s): J96.20 - ACUTE AND CHR RESP FAILURE, UNSP W HYPOXIA OR HYPERCAPNIA Qualifiers: Respiratory failure complication: hypoxia and hypercapnia Qualified Code(s): J96.21 - Acute and chronic respiratory failure with hypoxia (7) Acute on chronic diastolic (congestive) heart failure Code(s): I50.33 - ACUTE ON CHRONIC DIASTOLIC (CONGESTIVE) HEART FAILURE (8) Aortic aneurysm, intrathoracic Code(s): I71.2 - THORACIC AORTIC ANEURYSM, WITHOUT RUPTURE (9) Arteriosclerotic heart disease (ASHD) Code(s): I25.10 - ATHSCL HEART DISEASE OF [place] CORONARY ARTERY W/O ANG PCTRS (10) History of coronary artery stent placement Code(s): Z95.5 - PRESENCE OF CORONARY ANGIOPLASTY IMPLANT AND GRAFT (11) Hyperlipidemia Code(s): E78.5 - HYPERLIPIDEMIA, UNSPECIFIED (12) Hypertension Code(s): I10 - ESSENTIAL (PRIMARY) HYPERTENSION (13) Obstructive sleep apnea Code(s): G47.33 - OBSTRUCTIVE SLEEP APNEA (ADULT) (PEDIATRIC) (14) Diabetes Code(s): E11.9 - TYPE 2 DIABETES MELLITUS WITHOUT COMPLICATIONS Qualifiers: Diabetes mellitus type: type 2 Diabetes mellitus complication status: with kidney complications Diabetes mellitus complication detail: with chronic kidney disease Assessment/Plan IMP: SOB Acute on Chronic COPD Recent Sepsis, gram + Bacteremia, infected HD catheter- removed Recent TARYN on CKD CAD h/o stents REC: SOB-Resp failure: required intubation and s/p thoracentesis for pleural effusions during last admission -Chronic diastolic CHF -given reduced dose of torsemide 20mg on admission then given additional lasix 40mg IV after blood transfusion -his LE edema is improved from last admission, lung exam has some pulm vasc congestion, bun/creat elevated since admission -would resume his home Torsemide 40mg daily starting tomorrow and hold lasix for now -will monitor closely for need for adjustment in diuretics -monitor strict I/Os and daily weights -will re-evaluate tomorrow am clinically and lab [place] to decide on adjusting diuretics CAD: s/p PCI with stents this past year -thrombocytopenia on previous admission resolved -the plan was to cont him on ASA 81mg daily alone -unclear why Effient was started, would discontinue this -not on bblocker due to severe COPD
--- NOTE | 2016-04-27 12:08 | PN ---
Physical Exam: SUBJECTIVE: Patient seen and examined. He feels better today. No events overnight. PICC removed yesterday. On ventimask today. OBJECTIVE: Vital Signs Period Temp Pulse Resp BP Sys/[place] Pulse Ox Last 24 Hr 97.3 F-98.2 F 78-94 15-33 105-128/50-68 94-96 GENERAL: The patient is awake, alert, and fully oriented, in no acute distress. HEAD: Normal with no signs of trauma. EYES: PERRL, extraocular movements intact, sclera anicteric, conjunctiva clear. No ptosis. ENT: Ears normal, nares patent, oropharynx clear without exudates, moist mucous membranes. NECK: Trachea midline, full range of motion, supple. LUNGS: Breath sounds equal, rhonchi and crackles B/L, no wheezes, no accessory muscle use. HEART: Regular rate and rhythm, S1, S2 without murmur, rub or gallop. ABDOMEN: Soft, nontender, nondistended, normoactive bowel sounds, no guarding, no rebound, no hepatosplenomegaly, no masses. EXTREMITIES: 2+ pulses, warm, well-perfused, no edema. NEUROLOGICAL: Cranial nerves II through XII grossly intact. Normal speech, gait not observed. PSYCH: Normal mood, normal affect. SKIN: Warm, dry, normal turgor, no rashes or lesions noted Laboratory Results - last 24 hr 04/26/16 04/27/16 04/27/16 07:40 05:05 05:05 WBC 9.2 RBC 2.75 L Hgb 7.4 L Hct 23.6 L MCV 86.0 MCHC 31.2 L RDW 18.6 H Plt Count 282 MPV 7.2 L Neutrophils % 89.0 H Lymphocytes % 7.0 L Monocytes % 4.0 D Sodium 140 Potassium 4.2 Chloride 97 L Carbon Dioxide 34 H Anion Gap 9 BUN 60 H D Creatinine 2.9 H D Creat Clearance w eGFR 21.44 Random Glucose 132 H D Calcium 8.0 L Phosphorus 4.0 D Magnesium 2.8 H Total Bilirubin 0.3 D AST 11 L ALT 9 L Alkaline Phosphatase 123 H Total Protein 5.2 L Albumin 2.2 L Random Vancomycin Blood Type A POSITIVE Antibody Screen Negative Crossmatch See Detail 04/27/16 05:05 WBC RBC Hgb Hct MCV MCHC RDW Plt Count MPV Neutrophils % Lymphocytes % Monocytes % Sodium Potassium Chloride Carbon Dioxide Anion Gap BUN Creatinine Creat Clearance w eGFR Random Glucose Calcium Phosphorus Magnesium Total Bilirubin AST ALT Alkaline Phosphatase Total Protein Albumin Random Vancomycin 25.402 Blood Type Antibody Screen Crossmatch Active Medications Generic Name Dose Route Start Last Admin Trade Name Freq PRN Reason Stop Dose Admin Acetaminophen/Codeine Phosphate 1 tab 04/26/16 19:03 Tylenol # 3 - PO Q6H PRN PAIN Albuterol Sulfate 1 amp 04/26/16 19:03 Ventolin 0.083% Nebulizer Soln - NEB Q4H PRN SHORT OF BREATH/WHEEZING Albuterol/Ipratropium 1 amp 04/26/16 22:00 04/27/16 06:43 Duoneb - NEB 1 amp TIDR [facility] Administration Amlodipine Besylate 10 mg 04/27/16 10:00 04/27/16 09:20 Norvasc - PO 10 mg DAILY [facility] Administration Aspirin 81 mg 04/27/16 10:00 04/27/16 09:20 Ecotrin - PO 81 mg DAILY [facility] Administration Docusate Sodium 100 mg 04/26/16 22:00 04/27/16 09:25 Colace - PO 100 mg BID [facility] Administration Duloxetine HCl 60 mg 04/27/16 10:00 04/27/16 09:21 Cymbalta - PO 60 mg DAILY [facility] Administration Epoetin Keith 10,000 unit 04/28/16 10:00 Procrit - SQ MOWEFR@1000 [facility] Ferrous Sulfate 325 mg 04/27/16 08:00 Feosol - PO BIDWM [facility] Furosemide 40 mg 04/27/16 10:20 Lasix Injection - IVPB 04/27/16 10:21 ONCE ONE Guaifenesin 600 mg 04/26/16 22:00 04/27/16 09:11 Mucinex - PO 600 mg BID [facility] Administration Heparin Sodium (Porcine) 5,000 unit 04/26/16 22:00 04/27/16 09:20 Heparin - SQ Not Given BID [facility] Aztreonam 0.5 gm/ Dextrose 50 mls @ 100 mls/hr 04/27/16 02:00 04/27/16 09:09 IVPB 100 mls/hr Q8H-IV [facility] Administration Levofloxacin 250 mg 04/27/16 07:00 04/27/16 06:46 Levaquin - PO 250 mg AM [facility] Administration Methylprednisolone Sodium Succinate 20 mg 04/27/16 10:00 04/27/16 09:23 Solu-Medrol - IVPB 20 mg DAILY [facility] Administration Mirtazapine 7.5 mg 04/26/16 22:00 04/26/16 21:26 Remeron - PO 7.5 mg HS [facility] Administration Non-Formulary Medication 1 gm 04/27/16 10:00 Vancomycin/0.9 % Sod Chloride [Vanco 1 Gram/250 Ml-0.9% Nacl] IV DAILY [facility] Nystatin 1 applic 04/27/16 10:00 04/27/16 09:12 Nystop Powder - TP 1 applic DAILY [facility] Administration Pantoprazole Sodium 40 mg 04/27/16 10:00 04/27/16 09:18 Protonix - PO 40 mg DAILY [facility] Administration Polyethylene Glycol 17 gm 04/27/16 10:00 Miralax (For Daily Use) - PO DAILY [facility] Pregabalin 25 mg 04/27/16 10:00 04/27/16 09:19 Lyrica - PO 25 mg DAILY [facility] Administration Fluticasone/Salmeterol 1 puff 04/26/16 22:00 04/27/16 09:09 Advair 100mcg/50mcg - IH 1 puff BID [facility] Administration Senna 1 tab 04/27/16 10:00 04/27/16 09:22 Senna - PO 1 tab DAILY [facility] Administration Sodium Chloride 2 spray 04/26/16 19:03 [place] Nasal [place] - NS Q12H PRN NASAL CONGESTION Torsemide 40 mg 04/28/16 10:00 Demadex - PO DAILY [facility] Chest x-ray: Vascular congestion. Bilateral effusions. ASSESSMENT/PLAN: This is a 75-year-old man with a history of stage 4 CKD, HTN, CAD, PVD, chronic diastolic heart failure, COPD, obstructive sleep apnea, obesity-hypoventilation syndrome, lymphedema who was here 02/17-04/13 with severe sepsis, MRSA bacteremia , acute hypercapnic respiratory failure, acute renal failure and acute diastolic heart failure, was sent in from [facility] yesterday because of shortness of breath, cough and hypoxia. Healthcare-associated pneumonia - Had recent MRSA bacteremia - On Azactam, Levaquin, Vancomycin day 1 - Oxygen, DuoNeb - ID consult - Follow up blood, urine cultures UTI -continue antibiotics -urine cultures pending Acute kidney injury on stage 4 CKD - cont.Lasix - Monitor BUN, creatinine Cr today was 2.9, baseline 1.9 -nephrology consultation Anemia secondary to chronic illnes, CKD -1 u PRBC -Lasix 40 mg IV ONCE after unit -monitor CBC Chronic hypoxic and hypercapnic respiratory failure -continue Oxygen Supplementation -Pulmonology consultation -continue nebulizers CAD/chronic CHF -continue home meds Hypertension -cont home meds Obstructive sleep apnea: DVT PPX; -Heparin 5000 u SQ Q8h F/E/N No/no/low Na diet Disposition: ICU Problem List - Problems (1) CAD (coronary artery disease) Code(s): I25.10 - ATHSCL HEART DISEASE OF [place] CORONARY ARTERY W/O ANG PCTRS (2) Acute and chronic respiratory failure ([id number]) Code(s): J96.20 - ACUTE AND CHR RESP FAILURE, UNSP W HYPOXIA OR HYPERCAPNIA Qualifiers: Respiratory failure complication: hypoxia and hypercapnia Qualified Code(s): J96.21 - Acute and chronic respiratory failure with hypoxia Visit type - Emergency Visit Emergency Visit: Yes ED Registration Date: 04/26/16 Care time: The patient presented to the Emergency Department on the above date and was hospitalized for further evaluation of their emergent condition. - New Patient This patient is new to me today: Yes Date on this admission: 04/27/16 - Critical Care Critical Care patient: Yes Total Critical Care Time (in minutes): 40 Critical Care Statement: The care of this patient involved high complexity decision making to prevent further life threatening deterioration of the patient 's condition and/or to evalute & treat vital organ system(s) failure or risk of failure. - Discharge Referral [facility]erred to [facility] Med P.C.: No
--- NOTE | 2016-04-27 12:14 | PN ---
Teaching Attending Note Name of Resident: Lambert Ventura ATTENDING PHYSICIAN STATEMENT I saw and evaluated the patient. I reviewed the resident's note and discussed the case with the resident. I agree with the resident's findings and plan as documented. SUBJECTIVE: Pt seen and examined in the ICU. Remains on 50% ventimask. Breathing feels the same. PICC line removed yesterday. Cultures pending. No fevers or chills. OBJECTIVE: Last Vital Signs Temp Pulse Resp BP Pulse Ox 97.3 F L 85 22 115/68 94 L 04/27/16 10:00 04/27/16 10:00 04/27/16 10:00 04/27/16 10:00 04/27/16 09:36 Intake & Output 04/24/16 04/25/16 04/26/16 04/27/16 23:59 23:59 23:59 23:59 Intake Total 740 290 Output Total 700 200 Balance 40 90 Weight 280 lb 222 lb 3.2 oz 227 lb 4.8 oz Gen: mildly tachypneic at rest Heart: RRR Lung: scattered rhonchi Abd: soft, nontender, obese Ext: trace edema, chronic changes CBC, BMP 04/27/16 05:05 04/27/16 05:05 Active Medications Acetaminophen/Codeine Phosphate (Tylenol # 3 -) 1 tab PO Q6H PRN PRN Reason: PAIN Albuterol Sulfate (Ventolin 0.083% Nebulizer Soln -) 1 amp NEB Q4H PRN PRN Reason: SHORT OF BREATH/WHEEZING Albuterol/Ipratropium (Duoneb -) 1 amp NEB TIDR [facility] Last Admin: 04/27/16 06:43 Dose: 1 amp Amlodipine Besylate (Norvasc -) 10 mg PO DAILY [facility] Last Admin: 04/27/16 09:20 Dose: 10 mg Aspirin (Ecotrin -) 81 mg PO DAILY [facility] Last Admin: 04/27/16 09:20 Dose: 81 mg Docusate Sodium (Colace -) 100 mg PO BID [facility] Last Admin: 04/27/16 09:25 Dose: 100 mg Duloxetine HCl (Cymbalta -) 60 mg PO DAILY [facility] Last Admin: 04/27/16 09:21 Dose: 60 mg Epoetin Keith (Procrit -) 10,000 unit SQ MOWEFR@1000 [facility] Ferrous Sulfate (Feosol -) 325 mg PO BIDWM [facility] Furosemide (Lasix Injection -) 40 mg IVPB ONCE ONE Stop: 04/27/16 10:21 Guaifenesin (Mucinex -) 600 mg PO BID [facility] Last Admin: 04/27/16 09:11 Dose: 600 mg Heparin Sodium (Porcine) (Heparin -) 5,000 unit SQ BID [facility] Last Admin: 04/27/16 09:20 Dose: Not Given Aztreonam 0.5 gm/ Dextrose 50 mls @ 100 mls/hr IVPB Q8H-IV [facility] Last Admin: 04/27/16 09:09 Dose: 100 mls/hr Levofloxacin (Levaquin -) 250 mg PO AM [facility] Last Admin: 04/27/16 06:46 Dose: 250 mg Methylprednisolone Sodium Succinate (Solu-Medrol -) 20 mg IVPB DAILY [facility] Last Admin: 04/27/16 09:23 Dose: 20 mg Mirtazapine (Remeron -) 7.5 mg PO HS [facility] Last Admin: 04/26/16 21:26 Dose: 7.5 mg Non-Formulary Medication (Vancomycin/0.9 % Sod Chloride [Vanco 1 Gram/250 Ml-0.9 % Nacl]) 1 gm IV DAILY [facility] Nystatin (Nystop Powder -) 1 applic TP DAILY [facility] Last Admin: 04/27/16 09:12 Dose: 1 applic Pantoprazole Sodium (Protonix -) 40 mg PO DAILY [facility] Last Admin: 04/27/16 09:18 Dose: 40 mg Polyethylene Glycol (Miralax (For Daily Use) -) 17 gm PO DAILY [facility] Pregabalin (Lyrica -) 25 mg PO DAILY [facility] Last Admin: 04/27/16 09:19 Dose: 25 mg Fluticasone/Salmeterol (Advair 100mcg/50mcg -) 1 puff IH BID [facility] Last Admin: 04/27/16 09:09 Dose: 1 puff Senna (Senna -) 1 tab PO DAILY [facility] Last Admin: 04/27/16 09:22 Dose: 1 tab Sodium Chloride ([place] Nasal [place] -) 2 spray NS Q12H PRN PRN Reason: NASAL CONGESTION Torsemide (Demadex -) 40 mg PO DAILY [facility] ASSESSMENT AND PLAN: UTI Acute on Chronic LV Diastolic Heart Failure Recent MRSA bacteremia CAD Acute on Chronic Renal Failure COPD Anemia - continue empiric antibiotics - f/u cultures, narrow coverage pending results - discussed with cardiology, will maintain demadex 40mg daily and hold further lasix - monitor urine output, creatinine - transfuse 1 unit PRBC - taper off steroids - inhaled bronchodilators - taper Fio2 to keep SpO2 >90% - PO as tolerated - DVT/GI prophylaxis - can monitor on telemetry with pulse oximetry monitoring
[2016-04-27] MEDS: FERROUS SO4 325 MG TABLET (FP) PO SCH ×2 (12:21→17:55)
[2016-04-27 13:50] LABS: URINE CREATININE 81.9 mg/dL
--- NOTE | 2016-04-27 14:21 | PN ---
Progress Note, Physician History of Present Illness: Pt alert and oriented. NAD. Dyspnea unchanged - Current Medication List Current Medications: Active Medications Acetaminophen/Codeine Phosphate (Tylenol # 3 -) 1 tab PO Q6H PRN PRN Reason: PAIN Albuterol Sulfate (Ventolin 0.083% Nebulizer Soln -) 1 amp NEB Q4H PRN PRN Reason: SHORT OF BREATH/WHEEZING Albuterol/Ipratropium (Duoneb -) 1 amp NEB TIDR [facility] Last Admin: 04/27/16 14:17 Dose: 1 amp Amlodipine Besylate (Norvasc -) 10 mg PO DAILY [facility] Last Admin: 04/27/16 09:20 Dose: 10 mg Aspirin (Ecotrin -) 81 mg PO DAILY [facility] Last Admin: 04/27/16 09:20 Dose: 81 mg Docusate Sodium (Colace -) 100 mg PO BID [facility] Last Admin: 04/27/16 09:25 Dose: 100 mg Duloxetine HCl (Cymbalta -) 60 mg PO DAILY [facility] Last Admin: 04/27/16 09:21 Dose: 60 mg Epoetin [place] (Procrit -) 10,000 unit SQ MOWEFR@1000 [facility] Ferrous Sulfate (Feosol -) 325 mg PO BIDWM [facility] Last Admin: 04/27/16 12:21 Dose: 325 mg Guaifenesin (Mucinex -) 600 mg PO BID [facility] Last Admin: 04/27/16 09:11 Dose: 600 mg Heparin Sodium (Porcine) (Heparin -) 5,000 unit SQ BID [facility] Last Admin: 04/27/16 09:20 Dose: Not Given Aztreonam 0.5 gm/ Dextrose 50 mls @ 100 mls/hr IVPB Q8H-IV [facility] Last Admin: 04/27/16 09:09 Dose: 100 mls/hr Levofloxacin (Levaquin -) 250 mg PO AM [facility] Last Admin: 04/27/16 06:46 Dose: 250 mg Methylprednisolone Sodium Succinate (Solu-Medrol -) 20 mg IVPB DAILY [facility] Last Admin: 04/27/16 09:23 Dose: 20 mg Mirtazapine (Remeron -) 7.5 mg PO HS [facility] Last Admin: 04/26/16 21:26 Dose: 7.5 mg Non-Formulary Medication (Vancomycin/0.9 % Sod Chloride [Vanco 1 Gram/250 Ml-0.9 % Nacl]) 1 gm IV DAILY [facility] Nystatin (Nystop Powder -) 1 applic TP DAILY [facility] Last Admin: 04/27/16 09:12 Dose: 1 applic Pantoprazole Sodium (Protonix -) 40 mg PO DAILY [facility] Last Admin: 04/27/16 09:18 Dose: 40 mg Polyethylene Glycol (Miralax (For Daily Use) -) 17 gm PO DAILY [facility] Last Admin: 04/27/16 11:00 Dose: 17 gm Pregabalin (Lyrica -) 25 mg PO DAILY [facility] Last Admin: 04/27/16 09:19 Dose: 25 mg Fluticasone/Salmeterol (Advair 100mcg/50mcg -) 1 puff IH BID [facility] Last Admin: 04/27/16 09:09 Dose: 1 puff Senna (Senna -) 1 tab PO DAILY [facility] Last Admin: 04/27/16 09:22 Dose: 1 tab Sodium Chloride ([place] Nasal [place] -) 2 spray NS Q12H PRN PRN Reason: NASAL CONGESTION Torsemide (Demadex -) 40 mg PO DAILY [facility] - Objective Vital Signs: Vital Signs Temperature 97.3 F L 04/27/16 10:00 Pulse Rate 93 H 04/27/16 12:00 Respiratory Rate 24 04/27/16 12:00 Blood Pressure 121/81 04/27/16 12:00 O2 Sat by Pulse Oximetry (%) 94 L 04/27/16 09:36 Constitutional: Yes: No Distress Eyes: No: Sclera Icterus HENT: Yes: Atraumatic, Normocephalic Neck: Yes: Supple, Trachea Midline Cardiovascular: Yes: Regular Rate and Rhythm. No: JVD Respiratory: Yes: Diminished Gastrointestinal: Yes: Soft. No: Tenderness Edema: No Labs: CBC, BMP 04/27/16 05:05 04/27/16 05:05 Problem List - Problems (1) Pneumonia Code(s): J18.9 - PNEUMONIA, UNSPECIFIED ORGANISM Qualifiers: Pneumonia type: due to unspecified organism Laterality: left Lung location: lower lobe of lung Qualified Code(s): J18.9 - Pneumonia, unspecified organism (2) Acute exacerbation of chronic obstructive pulmonary disease (COPD) Code(s): J44.1 - CHRONIC OBSTRUCTIVE PULMONARY DISEASE W (ACUTE) EXACERBATION (3) Anemia Code(s): D64.9 - ANEMIA, UNSPECIFIED (4) Chronic renal insufficiency Code(s): N18.9 - CHRONIC KIDNEY DISEASE, UNSPECIFIED (5) CAD (coronary artery disease) Code(s): I25.10 - ATHSCL HEART DISEASE OF [place] CORONARY ARTERY W/O ANG PCTRS Assessment/Plan Pneumonia-New infiltrate left lower lung field. Acute Exacerbation COPD- respiratory status improved Anemia-probably secondary to combination of chronic disease and bleeding Chronic Renal Disease: stable CAD-s/p 2 stents. H/o of CHF Suggest: Inhaled bronchodilators IV steroids with tapering O2 to maintain SaO2>90 Antibiotics per I.D. recommendation
--- NOTE | 2016-04-27 14:56 | PN ---
Physical Exam: SUBJECTIVE: Patient seen and examined at bedside. No overnight events. No new complaints.Breathing is better.Denies CP,PEACOCK, palpiations, N/V. OBJECTIVE: Vital Signs Period Temp Pulse Resp BP Sys/Carmona Pulse Ox Last 24 Hr 97.3 F-98.2 F 78-96 15-24 105-133/50-81 94-96 GENERAL: The patient is awake, alert, mild distress. HEAD: Normal with no signs of trauma. EYES: PERRL, extraocular movements intact, sclera anicteric, conjunctiva clear. No ptosis. ENT: Ears normal, nares patent, moist mucous membranes. NECK: supple, NO JVD LUNGS: Scatttered rhonci bilat. (R>L)no wheezes, no crackles, no accessory muscle use. HEART: Regular rate and rhythm, S1, S2 without murmur, rub or gallop. ABDOMEN: Soft, nontender, nondistended, normoactive bowel sounds, no guarding, no rebound, no hepatosplenomegaly, no masses. EXTREMITIES:LUE picc line dressing w/d/i, 2+ pulses, warm, well-perfused, no edema. NEUROLOGICAL: AAO x3 Normal speech, gait not observed. PSYCH: Normal mood, normal affect. SKIN: Bilateral lower ext. scaling Laboratory Results - last 24 hr 04/26/16 04/27/16 04/27/16 07:40 05:05 05:05 WBC 9.2 RBC 2.75 L Hgb 7.4 L Hct 23.6 L MCV 86.0 MCHC 31.2 L RDW 18.6 H Plt Count 282 MPV 7.2 L Neutrophils % 89.0 H Lymphocytes % 7.0 L Monocytes % 4.0 D Sodium 140 Potassium 4.2 Chloride 97 L Carbon Dioxide 34 H Anion Gap 9 BUN 60 H D Creatinine 2.9 H D Creat Clearance w eGFR 21.44 Random Glucose 132 H D Calcium 8.0 L Phosphorus 4.0 D Magnesium 2.8 H Total Bilirubin 0.3 D AST 11 L ALT 9 L Alkaline Phosphatase 123 H Total Protein 5.2 L Albumin 2.2 L U Random Total Protein Ur Random Sodium Ur Random Potassium Ur Random Chloride Ur Random Urea Nitrogn Urine Creatinine Random Vancomycin Blood Type A POSITIVE Antibody Screen Negative Crossmatch See Detail 04/27/16 04/27/16 05:05 12:29 WBC RBC Hgb Hct MCV MCHC RDW Plt Count MPV Neutrophils % Lymphocytes % Monocytes % Sodium Potassium Chloride Carbon Dioxide Anion Gap BUN Creatinine Creat Clearance w eGFR Random Glucose Calcium Phosphorus Magnesium Total Bilirubin AST ALT Alkaline Phosphatase Total Protein Albumin U Random Total Protein 45 H Ur Random Sodium 21 Ur Random Potassium 19.7 Ur Random Chloride 23 Ur Random Urea Nitrogn 456 Urine Creatinine 81.9 Random Vancomycin 25.402 Blood Type Antibody Screen Crossmatch Active Medications Generic Name Dose Route Start Last Admin Trade Name Freq PRN Reason Stop Dose Admin Acetaminophen/Codeine Phosphate 1 tab 04/26/16 19:03 Tylenol # 3 - PO Q6H PRN PAIN Albuterol Sulfate 1 amp 04/26/16 19:03 Ventolin 0.083% Nebulizer Soln - NEB Q4H PRN SHORT OF BREATH/WHEEZING Albuterol/Ipratropium 1 amp 04/26/16 22:00 04/27/16 14:17 Duoneb - NEB 1 amp TIDR LESLEE Administration Amlodipine Besylate 10 mg 04/27/16 10:00 04/27/16 09:20 Norvasc - PO 10 mg DAILY L[facility]E Administration Aspirin 81 mg 04/27/16 10:00 04/27/16 09:20 Ecotrin - PO 81 mg DAILY L[facility]E Administration Docusate Sodium 100 mg 04/26/16 22:00 04/27/16 09:25 Colace - PO 100 mg BID L[facility]E Administration Duloxetine HCl 60 mg 04/27/16 10:00 04/27/16 09:21 Cymbalta - PO 60 mg DAILY L[facility] Administration Epoetin Keith 10,000 unit 04/28/16 10:00 Procrit - SQ MOWEFR@1000 [facility] Ferrous Sulfate 325 mg 04/27/16 08:00 04/27/16 12:21 Feosol - PO 325 mg BIDWM [facility]E Administration Guaifenesin 600 mg 04/26/16 22:00 04/27/16 09:11 Mucinex - PO 600 mg BID [facility]E Administration Heparin Sodium (Porcine) 5,000 unit 04/26/16 22:00 04/27/16 09:20 Heparin - SQ Not Given BID L[facility]E Aztreonam 0.5 gm/ Dextrose 50 mls @ 100 mls/hr 04/27/16 02:00 04/27/16 09:09 IVPB 100 mls/hr Q8H-IV LES[facility]E Administration Levofloxacin 250 mg 04/27/16 07:00 04/27/16 06:46 Levaquin - PO 250 mg AM L[facility]E Administration Methylprednisolone Sodium Succinate 20 mg 04/27/16 10:00 04/27/16 09:23 Solu-Medrol - IVPB 20 mg DAILY [facility]E Administration Mirtazapine 7.5 mg 04/26/16 22:00 04/26/16 21:26 Remeron - PO 7.5 mg HS LESLEE Administration Non-Formulary Medication 1 gm 04/27/16 10:00 Vancomycin/0.9 % Sod Chloride [Vanco 1 Gram/250 Ml-0.9% Nacl] IV DAILY [facility] Nystatin 1 applic 04/27/16 10:00 04/27/16 09:12 Nystop Powder - TP 1 applic DAILY [facility] Administration Pantoprazole Sodium 40 mg 04/27/16 10:00 04/27/16 09:18 Protonix - PO 40 mg DAILY [facility] Administration Polyethylene Glycol 17 gm 04/27/16 10:00 04/27/16 11:00 Miralax (For Daily Use) - PO 17 gm DAILY [facility] Administration Pregabalin 25 mg 04/27/16 10:00 04/27/16 09:19 Lyrica - PO 25 mg DAILY [facility] Administration Fluticasone/Salmeterol 1 puff 04/26/16 22:00 04/27/16 09:09 Advair 100mcg/50mcg - IH 1 puff BID [facility] Administration Senna 1 tab 04/27/16 10:00 04/27/16 09:22 Senna - PO 1 tab DAILY [facility] Administration Sodium Chloride 2 spray 04/26/16 19:03 [employer] [place] Nasal [place] - NS Q12H PRN NASAL CONGESTION Torsemide 40 mg 04/28/16 10:00 Demadex - PO DAILY [facility]E ASSESSMENT/PLAN: 75 yo M wtih PMhx of O2 dependent COPD, HTN, HLD, CAD (s/p 2 stents), CHF, CRF , PVD, chronic lymphedema, pleural effusions requiring thoracentesis, anemia brought to ICU for hypoxia and productive cough. Neuro: * Alert and oriented. * Pain management Pulm: * o2 support for sat 88-92, * On 50% venti mask O2 sat 97% * bipap PRN * Nebulizers standing and prn * chest xray shows LLL infiltrate. * repeat ABG ID: hx of MDR mrsa bacteremia +hcap +uti * Flu screen(-) * cultures pending * Vanco trough 25 today * Continue Aztreonam/Vanc * Occluded PICC removed. * Lactic acid = 1.1 * Nystatin to groin Renal: UTI/KARLOS * Gentle fluids as tolerated * Monitor electrolytes- repeat BMP in AM * Renal dose medication Cardiovascular: * cardiac enzymes have been (-) * AC with EFFIENT * daily ASA * ECHO done 03/30/16 shows normal LV/RV size and function, no wall motion abn., trace TR. and mild aortic root dilatation. * continue: * Amlodipine Besylate (Norvasc -) 10 mg PO DAILY * Torsemide (Demadex -) 20 mg PO DAILY [facility] * Lasix PRN Prophylactic * DVT with Heparin 5000U BID SQ DISPO: Stable for transfer to MED/Surg. Visit type - Emergency Visit Emergency Visit: Yes ED Registration Date: 04/26/16 Care time: The patient presented to the Emergency Department on the above date and was hospitalized for further evaluation of their emergent condition. - New Patient This patient is new to me today: No - Critical Care Critical Care patient: Yes Total Critical Care Time (in minutes): 33 Critical Care Statement: The care of this patient involved high complexity decision making to prevent further life threatening deterioration of the patient 's condition and/or to evalute & treat vital organ system(s) failure or risk of failure.
--- NOTE | 2016-04-27 17:02 | EKG ---
Test Reason : Blood Pressure : / mmHG Vent. Rate : 098 BPM Atrial Rate : 098 BPM P-R Int : 000 ms QRS Dur : 144 ms QT Int : 410 ms P-R-T Axes : 000 051 025 degrees QTc Int : 523 ms POOR DATA QUALITY, INTERPRETATION MAY BE ADVERSELY AFFECTED SINUS RHYTHM WITH OCCASIONAL PREMATURE VENTRICULAR COMPLEXES RIGHT BUNDLE BRANCH BLOCK ABNORMAL ECG WHEN COMPARED WITH ECG OF 29-MAR-2016 10:23, WIDE QRS RHYTHM HAS REPLACED SINUS RHYTHM Confirmed by RASTA BERUMEN MD ([id number]) on 04/27/2016 5:01:49 PM Referred By: Confirmed By:RASTA BERUMEN MD
--- NOTE | 2016-04-27 17:21 | PN ---
Progress Note, Physician History of Present Illness: patient doing much better no complaints legs look good no other issues - Current Medication List Current Medications: Active Medications Acetaminophen/Codeine Phosphate (Tylenol # 3 -) 1 tab PO Q6H PRN PRN Reason: PAIN Albuterol Sulfate (Ventolin 0.083% Nebulizer Soln -) 1 amp NEB Q4H PRN PRN Reason: SHORT OF BREATH/WHEEZING Albuterol/Ipratropium (Duoneb -) 1 amp NEB TIDR [facility] Last Admin: 04/27/16 14:17 Dose: 1 amp Amlodipine Besylate (Norvasc -) 10 mg PO DAILY [facility] Last Admin: 04/27/16 09:20 Dose: 10 mg Aspirin (Ecotrin -) 81 mg PO DAILY [facility] Last Admin: 04/27/16 09:20 Dose: 81 mg Docusate Sodium (Colace -) 100 mg PO BID [facility] Last Admin: 04/27/16 09:25 Dose: 100 mg Duloxetine HCl (Cymbalta -) 60 mg PO DAILY [facility] Last Admin: 04/27/16 09:21 Dose: 60 mg Epoetin Keith (Procrit -) 10,000 unit SQ MOWEFR@1000 [facility] Ferrous Sulfate (Feosol -) 325 mg PO BIDWM [facility] Last Admin: 04/27/16 12:21 Dose: 325 mg Guaifenesin (Mucinex -) 600 mg PO BID [facility] Last Admin: 04/27/16 09:11 Dose: 600 mg Heparin Sodium (Porcine) (Heparin -) 5,000 unit SQ BID [facility] Last Admin: 04/27/16 09:20 Dose: Not Given Methylprednisolone Sodium Succinate (Solu-Medrol -) 20 mg IVPB DAILY [facility] Last Admin: 04/27/16 09:23 Dose: 20 mg Mirtazapine (Remeron -) 7.5 mg PO HS [facility] Last Admin: 04/26/16 21:26 Dose: 7.5 mg Nystatin (Nystop Powder -) 1 applic TP DAILY [facility] Last Admin: 04/27/16 09:12 Dose: 1 applic Pantoprazole Sodium (Protonix -) 40 mg PO DAILY [facility] Last Admin: 04/27/16 09:18 Dose: 40 mg Polyethylene Glycol (Miralax (For Daily Use) -) 17 gm PO DAILY [facility] Last Admin: 04/27/16 11:00 Dose: 17 gm Pregabalin (Lyrica -) 25 mg PO DAILY [facility] Last Admin: 04/27/16 09:19 Dose: 25 mg Fluticasone/Salmeterol (Advair 100mcg/50mcg -) 1 puff IH BID [facility] Last Admin: 04/27/16 09:09 Dose: 1 puff Senna (Senna -) 1 tab PO DAILY [facility] Last Admin: 04/27/16 09:22 Dose: 1 tab Sodium Chloride ([place] Nasal [place] -) 2 spray NS Q12H PRN PRN Reason: NASAL CONGESTION Torsemide (Demadex -) 40 mg PO DAILY [facility] - Objective Vital Signs: Vital Signs Temperature 97.8 F 04/27/16 14:00 Pulse Rate 96 H 04/27/16 14:00 Respiratory Rate 22 04/27/16 14:00 Blood Pressure 133/59 04/27/16 14:00 O2 Sat by Pulse Oximetry (%) 94 L 04/27/16 09:36 Constitutional: Yes: No Distress, Calm Cardiovascular: Yes: Regular Rate and Rhythm Respiratory: Yes: Regular, Poor Air Entry Gastrointestinal: Yes: Normal Bowel Sounds, Soft Musculoskeletal: Yes: Other Extremities: Yes: Other Neurological: Yes: Alert, Oriented Psychiatric: Yes: Alert Labs: CBC, BMP 04/27/16 05:05 04/27/16 05:05 Assessment/Plan patient evaluated UTI Acute on Chronic LV Diastolic Heart Failure Recent MRSA bacteremia CAD Acute on Chronic Renal Failure COPD Anemia breathing difficulty plan vanco level noted no vanco stopped aztreo i doubt patient has pna resp physio incentive igor cc time 40 min
[2016-04-27] MEDS ORDERED: ACETAMINOPHEN WITH CODEINE 300MG/30MG TABLET PO PRN (19:47)
[2016-04-27] MEDS ORDERED: SODIUM CHLORIDE NASAL SPRAY 44 ML BOTTLE NS PRN (19:47)
[2016-04-27] MEDS: MIRTAZAPINE 15 MG TABLET (FP) PO SCH (22:42)
[2016-04-28 06:19] LABS: MCHC 31.9 g/dl (32.0-35.9); MEAN CELL VOLUME 84.8 fl (80-96); MEAN PLT VOLUME 7.3 fl (7.5-11.1); PLATELET COUNT 305 K/MM3 (134-434); RDW 18.2 % (11.9-15.9); WHITE BLOOD COUNT 9.4 K/mm3 (4.0-10.0)
[2016-04-28] MEDS: ALBUTEROL SO4 2.5/IPRATROPIUM 0.5 INH SOL 3 ML VIAL.NEB. NEB SCH ×3 (06:33→22:00)
[2016-04-28 06:38] LABS: CALCIUM 7.7 mg/dL (8.5-10.1); CREATININE 2.5 mg/dL (0.7-1.3); MAGNESIUM 2.8 mg/dL (1.8-2.4); PHOSPHOROUS 3.4 mg/dL (2.5-4.9)
[2016-04-28] MEDS ORDERED: PT OWN MED DRAWER 7, Y5N ONE ×3 (08:07→11:47)
[2016-04-28] MEDS: ALBUTEROL SO4 0.083% IH SOL 2.5 MG/3 ML VIAL.NEB. NEB PRN (08:48)
[2016-04-28] MEDS: FERROUS SO4 325 MG TABLET (FP) PO SCH ×2 (09:00→17:54)
--- NOTE | 2016-04-28 09:14 | PN ---
Progress Note, Physician Chief Complaint: alert and oriented no chest pain or SOB TELE: NSR w/ VPCs and some runs NSVT (3 beats each) - Current Medication List Current Medications: Active Medications Acetaminophen/Codeine Phosphate (Tylenol # 3 -) 1 tab PO Q6H PRN PRN Reason: PAIN Albuterol Sulfate (Ventolin 0.083% Nebulizer Soln -) 1 amp NEB Q4H PRN PRN Reason: SHORT OF BREATH/WHEEZING Last Admin: 04/28/16 08:48 Dose: 1 amp Albuterol/Ipratropium (Duoneb -) 1 amp NEB TIDR [facility] Last Admin: 04/28/16 06:33 Dose: 1 amp Amlodipine Besylate (Norvasc -) 10 mg PO DAILY [facility] Aspirin (Ecotrin -) 81 mg PO DAILY [facility] Docusate Sodium (Colace -) 100 mg PO BID [facility] Last Admin: 04/27/16 22:41 Dose: 100 mg Duloxetine HCl (Cymbalta -) 60 mg PO DAILY [facility] Epoetin Keith (Procrit -) 10,000 unit SQ MOWEFR@1000 [facility] Ferrous Sulfate (Feosol -) 325 mg PO BIDWM [facility] Guaifenesin (Mucinex -) 600 mg PO BID [facility] Last Admin: 04/27/16 22:41 Dose: 600 mg Heparin Sodium (Porcine) (Heparin -) 5,000 unit SQ BID [facility] Last Admin: 04/27/16 22:40 Dose: Not Given Methylprednisolone Sodium Succinate (Solu-Medrol -) 20 mg IVPB DAILY [facility] Mirtazapine (Remeron -) 7.5 mg PO HS [facility] Last Admin: 04/27/16 22:42 Dose: 7.5 mg Nystatin (Nystop Powder -) 1 applic TP DAILY [facility] Pantoprazole Sodium (Protonix -) 40 mg PO DAILY [facility] Polyethylene Glycol (Miralax (For Daily Use) -) 17 gm PO DAILY [facility] Pregabalin (Lyrica -) 25 mg PO DAILY [facility] Fluticasone/Salmeterol (Advair 100mcg/50mcg -) 1 puff IH BID [facility] Last Admin: 04/27/16 22:40 Dose: 1 puff Senna (Senna -) 1 tab PO DAILY [facility] Sodium Chloride ([place] Nasal [place] -) 2 spray NS Q12H PRN PRN Reason: NASAL CONGESTION Torsemide (Demadex -) 40 mg PO DAILY [facility] - Objective Vital Signs: Vital Signs Temperature 97.4 F L 04/28/16 06:00 Pulse Rate 87 04/28/16 08:00 Respiratory Rate 15 04/28/16 08:00 Blood Pressure 105/51 04/28/16 08:00 O2 Sat by Pulse Oximetry (%) 97 04/28/16 07:56 Constitutional: Yes: No Distress Cardiovascular: Yes: Regular Rate and Rhythm Respiratory: Yes: CTA Bilaterally Gastrointestinal: Yes: Soft, Abdomen, Obese Edema: Yes Edema: LLE: 1+, RLE: 1+ Neurological: Yes: Alert, Oriented Labs: CBC, BMP 04/28/16 05:35 04/28/16 05:35 Laboratory Tests 04/25/16 04/27/16 04/28/16 19:13 05:05 05:35 WBC Hgb 6.5 L* D Hct Plt Count Potassium 4.0 BUN 60 H D 67 H Creatinine 2.9 H D 2.5 H Magnesium 2.8 H 04/28/16 05:35 WBC 9.4 Hgb Hct 25.7 L Plt Count 305 Potassium BUN Creatinine Magnesium - ....Imaging EKG: Image Reviewed Assessment/Plan IMP: SOB Acute on Chronic COPD Recent Sepsis, gram + Bacteremia, infected HD catheter- removed Recent TARYN on CKD CAD h/o stents REC: SOB-Resp failure: required intubation and s/p thoracentesis for pleural effusions during last admission -Chronic diastolic CHF -Continue Torsemide -monitor strict I/Os and daily weights CAD: s/p PCI with stents this past year -thrombocytopenia on previous admission resolved -the plan was to cont him on ASA 81mg daily alone -not on bblocker due to severe COPD -Having short runs NSVT, keep K and Mg repleted. -Echo last admission normal LV function
--- NOTE | 2016-04-28 09:51 | PN ---
Physical Exam: SUBJECTIVE: Patient seen and examined at bedside. Transfused 1 unit PRBC with appropriate response overnight. No new complaints. Feels better. Denies CP, [place]OCK, palpitations, Abd. pain, n/v. OBJECTIVE: Vital Signs Period Temp Pulse Resp BP Sys/[place]ona Pulse Ox Last 24 Hr 97 F-98.2 F 85-99 15-24 105-140/51-94 95-97 GENERAL: The patient is awake, alert, mild distress. HEAD: Normal with no signs of trauma. EYES: PERRL, extraocular movements intact, sclera anicteric, conjunctiva clear. No ptosis. ENT: Ears normal, nares patent, moist mucous membranes. NECK: supple, NO JVD LUNGS: Scatttered rhonci bilat. (R>L)no wheezes, no crackles, no accessory muscle use. HEART: Regular rate and rhythm, S1, S2 without murmur, rub or gallop. ABDOMEN: Soft, nontender, nondistended, normoactive bowel sounds, no guarding, no rebound, no hepatosplenomegaly, no masses. EXTREMITIES:LE 1+ pulses, warm, well-perfused, trace edema, LUE s/p removal of picc. dressing c/d/i NEUROLOGICAL: AAO x3 Normal speech, gait not observed. PSYCH: Normal mood, normal affect. SKIN: Bilateral lower ext. scaling Laboratory Results - last 24 hr 04/26/16 04/27/16 04/27/16 07:40 12:00 12:00 WBC RBC Hgb Hct MCV MCHC RDW Plt Count MPV Sodium Potassium Chloride Carbon Dioxide Anion Gap BUN Creatinine Random Glucose Calcium Phosphorus Magnesium U Random Total Protein Ur Random Sodium Cancelled Ur Random Potassium Ur Random Chloride Ur Random Urea Nitrogn Urine Creatinine Cancelled Blood Type A POSITIVE Antibody Screen Negative Crossmatch See Detail 04/27/16 04/27/16 04/28/16 12:00 12:29 05:35 WBC RBC Hgb Hct MCV MCHC RDW Plt Count MPV Sodium 142 Potassium 4.0 Chloride 99 Carbon Dioxide 35 H Anion Gap 8 BUN 67 H Creatinine 2.5 H Random Glucose 159 H D Calcium 7.7 L Phosphorus 3.4 Magnesium 2.8 H U Random Total Protein Cancelled 45 H Ur Random Sodium 21 Ur Random Potassium 19.7 Ur Random Chloride 23 Ur Random Urea Nitrogn 456 Urine Creatinine 81.9 Blood Type Antibody Screen Crossmatch 04/28/16 05:35 WBC 9.4 RBC 3.03 L Hgb 8.2 L D Hct 25.7 L MCV 84.8 MCHC 31.9 L RDW 18.2 H Plt Count 305 MPV 7.3 L Sodium Potassium Chloride Carbon Dioxide Anion Gap BUN Creatinine Random Glucose Calcium Phosphorus Magnesium U Random Total Protein Ur Random Sodium Ur Random Potassium Ur Random Chloride Ur Random Urea Nitrogn Urine Creatinine Blood Type Antibody Screen Crossmatch Active Medications Generic Name Dose Route Start Last Admin Trade Name Freq PRN Reason Stop Dose Admin Acetaminophen/Codeine Phosphate 1 tab 04/27/16 19:47 Tylenol # 3 - PO Q6H PRN PAIN Albuterol Sulfate 1 amp 04/27/16 19:47 04/28/16 08:48 Ventolin 0.083% Nebulizer Soln - NEB 1 amp Q4H PRN Administration SHORT OF BREATH/WHEEZING Albuterol/Ipratropium 1 amp 04/27/16 22:00 04/28/16 06:33 Duoneb - NEB 1 amp TIDR [facility]E Administration Amlodipine Besylate 10 mg 04/28/16 10:00 Norvasc - PO DAILY [facility] Aspirin 81 mg 04/28/16 10:00 Ecotrin - PO DAILY [facility] Docusate Sodium 100 mg 04/27/16 22:00 04/27/16 22:41 Colace - PO 100 mg BID [facility] Administration Duloxetine HCl 60 mg 04/28/16 10:00 Cymbalta - PO DAILY [facility] Epoetin Keith 10,000 unit 04/28/16 10:00 Procrit - SQ MOWEFR@1000 [facility] Ferrous Sulfate 325 mg 04/28/16 08:00 Feosol - PO BIDWM [facility] Guaifenesin 600 mg 04/27/16 22:00 04/27/16 22:41 Mucinex - PO 600 mg BID [facility] Administration Heparin Sodium (Porcine) 5,000 unit 04/27/16 22:00 04/27/16 22:40 Heparin - SQ Not Given BID [facility] Methylprednisolone Sodium Succinate 20 mg 04/28/16 10:00 Solu-Medrol - IVPB DAILY [facility] Mirtazapine 7.5 mg 04/27/16 22:00 04/27/16 22:42 Remeron - PO 7.5 mg HS [facility] Administration Nystatin 1 applic 04/28/16 10:00 Nystop Powder - TP DAILY [facility] Pantoprazole Sodium 40 mg 04/28/16 10:00 Protonix - PO DAILY [facility] Polyethylene Glycol 17 gm 04/28/16 10:00 Miralax (For Daily Use) - PO DAILY [facility] Pregabalin 25 mg 04/28/16 10:00 Lyrica - PO DAILY [facility] Fluticasone/Salmeterol 1 puff 04/27/16 22:00 04/27/16 22:40 Advair 100mcg/50mcg - IH 1 puff BID [facility] Administration Senna 1 tab 04/28/16 10:00 Senna - PO DAILY [facility] Sodium Chloride 2 spray 04/27/16 19:47 [place] Nasal [place] - NS Q12H PRN NASAL CONGESTION Torsemide 40 mg 04/28/16 10:00 Demadex - PO DAILY [facility] TELE: NSR w/ VPCs and some runs NSVT (3 beats each) ASSESSMENT/PLAN: 75 yo M wtih PMhx of O2 dependent COPD, HTN, HLD, CAD (s/p 2 stents), CHF, CRF , PVD, chronic lymphedema, pleural effusions requiring thoracentesis, anemia brought to ICU for hypoxia and productive cough. Neuro: * Alert and oriented. * Pain management Pulm: * o2 support for sat 88-92, * On 50% venti mask O2 sat 97% * bipap PRN * Nebulizers standing and prn * chest xray shows LLL infiltrate. * repeat ABG and CXR ID: hx of MDR mrsa bacteremia +hcap +uti * Flu screen(-) * UC- grew yeast like organism * Vanco not given due to appropriate levels. * Lactic acid WNL * Nystatin to groin Renal: UTI/KARLOS * Gentle fluids as tolerated * Monitor electrolytes- repeat BMP in AM * Renal dose medication Cardiovascular: * cardiac enzymes have been (-) * AC with EFFIENT * daily ASA * ECHO done 03/30/16 shows normal LV/RV size and function, no wall motion abn., trace TR. and mild aortic root dilatation. * continue: * Amlodipine Besylate (Norvasc -) 10 mg PO DAILY * Torsemide (Demadex -) 20 mg PO DAILY [facility] * Lasix PRN Prophylactic * DVT with Heparin 5000U BID SQ DISPO: Can be monitored on tele or 5s Visit type - Emergency Visit Emergency Visit: Yes ED Registration Date: 04/26/16 Care time: The patient presented to the Emergency Department on the above date and was hospitalized for further evaluation of their emergent condition. - New Patient This patient is new to me today: No - Critical Care Critical Care patient: Yes Total Critical Care Time (in minutes): 33 Critical Care Statement: The care of this patient involved high complexity decision making to prevent further life threatening deterioration of the patient 's condition and/or to evalute & treat vital organ system(s) failure or risk of failure.
[2016-04-28] MEDS: PREGABALIN 25 MG CAPSULE PO SCH (09:55)
[2016-04-28] MEDS: PANTOPRAZOLE 40 MG TABLET (FP) PO SCH (09:55)
[2016-04-28] MEDS: ASPIRIN COATED 81 MG TABLET.EC PO SCH (09:55)
[2016-04-28] MEDS: TORSEMIDE 20 MG TABLET (FP) PO SCH (09:55)
[2016-04-28] MEDS: DOCUSATE SODIUM 100 MG CAPSULE (FP) PO SCH ×2 (09:56→22:52)
[2016-04-28] MEDS: DULoxetine HCL 30 MG CAPSULE.DR (FP) PO SCH (09:56)
[2016-04-28] MEDS: SENNOSIDES 8.6MG TABLET (FP) PO SCH (09:56)
[2016-04-28] MEDS: guaiFENesin 600 MG TABLET.ER (FP) PO SCH ×2 (09:57→22:51)
[2016-04-28] MEDS: POLYETHYLENE GLYCOL 3350 119 GM BTL PO SCH (09:57)
[2016-04-28] MEDS ORDERED: EPOETIN ALFA 10,000 UNIT/1 ML VIAL SQ SCH ×2 (10:00)
[2016-04-28] MEDS ORDERED: methylPREDNISolone NA SUCC 40 MG/1 ML VIAL IVPB SCH (10:00)
[2016-04-28] MEDS ORDERED: TORSEMIDE 20 MG TABLET (FP) PO SCH (10:00)
[2016-04-28] MEDS: FLUTICASONE/SALMETEROL 100 MCG/50 MCG DISKUS IH SCH ×2 (10:05→22:52)
[2016-04-28] MEDS: NYSTATIN POWDER 100,000 UNITS/GM - 15 GM TOPICAL POWDER TP SCH (10:09)
[2016-04-28] MEDS: HEPARIN NA (PORCINE) 5,000 UNITS/ML 1ML VIAL SQ SCH ×2 (10:09→22:50)
--- NOTE | 2016-04-28 10:39 | PN ---
Progress Note (short form) - Note Progress Note: Renal Follow up for KARLOS on CKD Pt seen and examined in the ICU awake and alert on Venti mask no sob, chest pain, abd pain, N/V/D lilly in place with yellow urine Vital Signs Temperature 97.4 F L 04/28/16 06:00 Pulse Rate 90 04/28/16 10:09 Respiratory Rate 20 04/28/16 10:00 Blood Pressure 129/49 04/28/16 10:00 O2 Sat by Pulse Oximetry (%) 99 04/28/16 10:09 Intake & Output 04/25/16 04/26/16 04/27/16 04/28/16 23:59 23:59 23:59 23:59 Intake Total 740 1490 Output Total 700 700 300 Balance 40 790 -300 Weight 280 lb 222 lb 3.2 oz 227 lb 4.8 oz 227 lb Gen: NAD on Ventimask HEENT: NC/AT, No JVD, Neck Supple CVS: RRR, No M/R Lungs: Dec BS at lung bases Abd: soft Obese, NT/ND Ext: Trace edema in LE, 1+ edema in the sacrum : Lilly in place, no bladder distension CBC, BMP 04/28/16 05:35 04/28/16 05:35 Current Medications Acetaminophen/Codeine Phosphate (Tylenol # 3 -) 1 tab PO Q6H PRN PRN Reason: PAIN Albuterol Sulfate (Ventolin 0.083% Nebulizer Soln -) 1 amp NEB Q4H PRN PRN Reason: SHORT OF BREATH/WHEEZING Last Admin: 04/28/16 08:48 Dose: 1 amp Albuterol/Ipratropium (Duoneb -) 1 amp NEB TIDR [facility] Last Admin: 04/28/16 06:33 Dose: 1 amp Amlodipine Besylate (Norvasc -) 10 mg PO DAILY [facility] Aspirin (Ecotrin -) 81 mg PO DAILY [facility] Last Admin: 04/28/16 09:55 Dose: 81 mg Docusate Sodium (Colace -) 100 mg PO BID [facility] Last Admin: 04/28/16 09:56 Dose: 100 mg Duloxetine HCl (Cymbalta -) 60 mg PO DAILY [facility] Last Admin: 04/28/16 09:56 Dose: 60 mg Epoetin Keith (Procrit -) 10,000 unit SQ MOWEFR@1000 [facility] Ferrous Sulfate (Feosol -) 325 mg PO BIDWM [facility] Last Admin: 04/28/16 09:00 Dose: 325 mg Guaifenesin (Mucinex -) 600 mg PO BID [facility] Last Admin: 04/28/16 09:57 Dose: 600 mg Heparin Sodium (Porcine) (Heparin -) 5,000 unit SQ BID [facility] Last Admin: 04/28/16 10:09 Dose: Not Given Methylprednisolone Sodium Succinate (Solu-Medrol -) 20 mg IVPB DAILY [facility] Last Admin: 04/28/16 09:59 Dose: 20 mg Mirtazapine (Remeron -) 7.5 mg PO HS [facility] Last Admin: 04/27/16 22:42 Dose: 7.5 mg Nystatin (Nystop Powder -) 1 applic TP DAILY [facility] Last Admin: 04/28/16 10:09 Dose: 1 applic Pantoprazole Sodium (Protonix -) 40 mg PO DAILY [facility] Last Admin: 04/28/16 09:55 Dose: 40 mg Polyethylene Glycol (Miralax (For Daily Use) -) 17 gm PO DAILY [facility] Last Admin: 04/28/16 09:57 Dose: 17 gm Pregabalin (Lyrica -) 25 mg PO DAILY [facility] Last Admin: 04/28/16 09:55 Dose: 25 mg Fluticasone/Salmeterol (Advair 100mcg/50mcg -) 1 puff IH BID [facility] Last Admin: 04/28/16 10:05 Dose: 1 puff Senna (Senna -) 1 tab PO DAILY [facility] Last Admin: 04/28/16 09:56 Dose: 1 tab Sodium Chloride ([place] Nasal [place] -) 2 spray NS Q12H PRN PRN Reason: NASAL CONGESTION Torsemide (Demadex -) 40 mg PO DAILY [facility] Last Admin: 04/28/16 09:55 Dose: 40 mg A/P 75 year old Gentleman with PMhx of CKD (Hx of KARLOS requiring dialysis), Hypertension, COPD on O2, BPH, Gout, MRSA Bactermia from catheter site infection , CHF presented with SOB and cough and found to have acute on chronic anemia and KARLOS with BUN/Cr of 41/2.3. #Acute on Chronic Renal Insufficiency in setting of acute anemia/PNA and CHF Renal function improved within the lat 24 hours Pt non-oliguric with good urine output FeUrea was 29% indicating renal hypoperfusion w/o tubular damage Urine protein to Cr ratio was 0.5 Continue Toresemide 40mg Daily Keep MAP > 65 #CHF/COPD O2 ok on Ventimask, titrate as per ICU continue Torsemide 40mg Daily Cardiology following continue IV steroids as per pulmonary #Acute On Chronic Anemia Hgb stable since transfusion Resume Epogen TIW Thank you Will follow Melvin Johnson DO
[2016-04-28] MEDS: amLODIPine BESYLATE 10 MG TABLET (FP) PO SCH (12:29)
--- NOTE | 2016-04-28 12:32 | PN ---
Teaching Attending Note Name of Resident: Lambert Ventura ATTENDING PHYSICIAN STATEMENT I saw and evaluated the patient. I reviewed the resident's note and discussed the case with the resident. I agree with the resident's findings and plan as documented. SUBJECTIVE: Patient seen and examined in the ICU. Remains on 50% ventimask. Breathing feels the same. Some dry cough. No CP. OBJECTIVE: Intake & Output 04/25/16 04/26/16 04/27/16 04/28/16 23:59 23:59 23:59 23:59 Intake Total 740 1490 660 Output Total 700 700 300 Balance 40 790 360 Weight 280 lb 222 lb 3.2 oz 227 lb 4.8 oz 227 lb Last Vital Signs Temp Pulse Resp BP Pulse Ox 97.4 F L 90 20 129/49 99 04/28/16 06:00 04/28/16 10:09 04/28/16 10:00 04/28/16 10:00 04/28/16 10:09 Active Medications Acetaminophen/Codeine Phosphate (Tylenol # 3 -) 1 tab PO Q6H PRN PRN Reason: PAIN Albuterol Sulfate (Ventolin 0.083% Nebulizer Soln -) 1 amp NEB Q4H PRN PRN Reason: SHORT OF BREATH/WHEEZING Last Admin: 04/28/16 08:48 Dose: 1 amp Albuterol/Ipratropium (Duoneb -) 1 amp NEB TIDR [facility] Last Admin: 04/28/16 06:33 Dose: 1 amp Amlodipine Besylate (Norvasc -) 10 mg PO DAILY [facility] Aspirin (Ecotrin -) 81 mg PO DAILY [facility] Last Admin: 04/28/16 09:55 Dose: 81 mg Docusate Sodium (Colace -) 100 mg PO BID [facility] Last Admin: 04/28/16 09:56 Dose: 100 mg Duloxetine HCl (Cymbalta -) 60 mg PO DAILY [facility] Last Admin: 04/28/16 09:56 Dose: 60 mg Epoetin Keith (Procrit -) 10,000 unit SQ MOWEFR@1000 [facility] Ferrous Sulfate (Feosol -) 325 mg PO BIDWM [facility] Last Admin: 04/28/16 09:00 Dose: 325 mg Guaifenesin (Mucinex -) 600 mg PO BID [facility] Last Admin: 04/28/16 09:57 Dose: 600 mg Heparin Sodium (Porcine) (Heparin -) 5,000 unit SQ BID [facility] Last Admin: 04/28/16 10:09 Dose: Not Given Methylprednisolone Sodium Succinate (Solu-Medrol -) 20 mg IVPB DAILY [facility] Last Admin: 04/28/16 09:59 Dose: 20 mg Mirtazapine (Remeron -) 7.5 mg PO HS [facility] Last Admin: 04/27/16 22:42 Dose: 7.5 mg Nystatin (Nystop Powder -) 1 applic TP DAILY [facility] Last Admin: 04/28/16 10:09 Dose: 1 applic Pantoprazole Sodium (Protonix -) 40 mg PO DAILY [facility] Last Admin: 04/28/16 09:55 Dose: 40 mg Polyethylene Glycol (Miralax (For Daily Use) -) 17 gm PO DAILY [facility] Last Admin: 04/28/16 09:57 Dose: 17 gm Pregabalin (Lyrica -) 25 mg PO DAILY [facility] Last Admin: 04/28/16 09:55 Dose: 25 mg Fluticasone/Salmeterol (Advair 100mcg/50mcg -) 1 puff IH BID [facility] Last Admin: 04/28/16 10:05 Dose: 1 puff Senna (Senna -) 1 tab PO DAILY [facility] Last Admin: 04/28/16 09:56 Dose: 1 tab Sodium Chloride ([place] Nasal [place] -) 2 spray NS Q12H PRN PRN Reason: NASAL CONGESTION Torsemide (Demadex -) 40 mg PO DAILY [facility] Last Admin: 04/28/16 09:55 Dose: 40 mg Gen: mildly tachypneic at rest Heart: RRR Lung: scattered rhonchi Abd: soft, nontender, obese Ext: trace edema, chronic changes Laboratory Results - last 24 hr 04/26/16 04/27/16 04/27/16 07:40 12:00 12:00 WBC RBC Hgb Hct MCV MCHC RDW Plt Count MPV Sodium Potassium Chloride Carbon Dioxide Anion Gap BUN Creatinine Random Glucose Calcium Phosphorus Magnesium U Random Total Protein Ur Random Sodium Cancelled Ur Random Potassium Ur Random Chloride Ur Random Urea Nitrogn Urine Creatinine Cancelled Blood Type A POSITIVE Antibody Screen Negative Crossmatch See Detail 04/27/16 04/27/16 04/28/16 12:00 12:29 05:35 WBC RBC Hgb Hct MCV MCHC RDW Plt Count MPV Sodium 142 Potassium 4.0 Chloride 99 Carbon Dioxide 35 H Anion Gap 8 BUN 67 H Creatinine 2.5 H Random Glucose 159 H D Calcium 7.7 L Phosphorus 3.4 Magnesium 2.8 H U Random Total Protein Cancelled 45 H Ur Random Sodium 21 Ur Random Potassium 19.7 Ur Random Chloride 23 Ur Random Urea Nitrogn 456 Urine Creatinine 81.9 Blood Type Antibody Screen Crossmatch 04/28/16 05:35 WBC 9.4 RBC 3.03 L Hgb 8.2 L D Hct 25.7 L MCV 84.8 MCHC 31.9 L RDW 18.2 H Plt Count 305 MPV 7.3 L Sodium Potassium Chloride Carbon Dioxide Anion Gap BUN Creatinine Random Glucose Calcium Phosphorus Magnesium U Random Total Protein Ur Random Sodium Ur Random Potassium Ur Random Chloride Ur Random Urea Nitrogn Urine Creatinine Blood Type Antibody Screen Crossmatch ASSESSMENT AND PLAN: UTI Acute on Chronic LV Diastolic Heart Failure Recent MRSA bacteremia CAD Acute on Chronic Renal Failure COPD Anemia - ABX per ID - demadex 40mg daily - monitor urine output, creatinine - Normal transfusion thresholds - Change to Prednisone - inhaled bronchodilators - taper Fio2 to keep SpO2 >90% - PO as tolerated - DVT/GI prophylaxis - can monitor on telemetry with pulse oximetry monitoring Dr Vasquez
--- NOTE | 2016-04-28 17:32 | PN ---
Progress Note, Physician History of Present Illness: patient still on venti mask says he is better - Current Medication List Current Medications: Active Medications Acetaminophen/Codeine Phosphate (Tylenol # 3 -) 1 tab PO Q6H PRN PRN Reason: PAIN Albuterol Sulfate (Ventolin 0.083% Nebulizer Soln -) 1 amp NEB Q4H PRN PRN Reason: SHORT OF BREATH/WHEEZING Last Admin: 04/28/16 08:48 Dose: 1 amp Albuterol/Ipratropium (Duoneb -) 1 amp NEB TIDR [facility] Last Admin: 04/28/16 14:38 Dose: 1 amp Amlodipine Besylate (Norvasc -) 10 mg PO DAILY [facility] Last Admin: 04/28/16 12:29 Dose: 10 mg Aspirin (Ecotrin -) 81 mg PO DAILY [facility] Last Admin: 04/28/16 09:55 Dose: 81 mg Docusate Sodium (Colace -) 100 mg PO BID [facility] Last Admin: 04/28/16 09:56 Dose: 100 mg Duloxetine HCl (Cymbalta -) 60 mg PO DAILY [facility] Last Admin: 04/28/16 09:56 Dose: 60 mg Epoetin Keith (Procrit -) 10,000 unit SQ MOWEFR@1000 [facility] Last Admin: 04/28/16 12:29 Dose: Not Given Ferrous Sulfate (Feosol -) 325 mg PO BIDWM [facility] Last Admin: 04/28/16 09:00 Dose: 325 mg Guaifenesin (Mucinex -) 600 mg PO BID [facility] Last Admin: 04/28/16 09:57 Dose: 600 mg Heparin Sodium (Porcine) (Heparin -) 5,000 unit SQ BID [facility] Last Admin: 04/28/16 10:09 Dose: Not Given Mirtazapine (Remeron -) 7.5 mg PO HS [facility] Last Admin: 04/27/16 22:42 Dose: 7.5 mg Nystatin (Nystop Powder -) 1 applic TP DAILY [facility] Last Admin: 04/28/16 10:09 Dose: 1 applic Pantoprazole Sodium (Protonix -) 40 mg PO DAILY [facility] Last Admin: 04/28/16 09:55 Dose: 40 mg Polyethylene Glycol (Miralax (For Daily Use) -) 17 gm PO DAILY [facility] Last Admin: 04/28/16 09:57 Dose: 17 gm Prednisone (Deltasone -) 30 mg PO DAILY [facility] Pregabalin (Lyrica -) 25 mg PO DAILY [facility] Last Admin: 04/28/16 09:55 Dose: 25 mg Fluticasone/Salmeterol (Advair 100mcg/50mcg -) 1 puff IH BID [facility] Last Admin: 04/28/16 10:05 Dose: 1 puff Senna (Senna -) 1 tab PO DAILY [facility] Last Admin: 04/28/16 09:56 Dose: 1 tab Sodium Chloride ([place] Nasal [place] -) 2 spray NS Q12H PRN PRN Reason: NASAL CONGESTION Torsemide (Demadex -) 40 mg PO DAILY [facility] Last Admin: 04/28/16 09:55 Dose: 40 mg - Objective Vital Signs: Vital Signs Temperature 97.4 F L 04/28/16 06:00 Pulse Rate 96 H 04/28/16 14:00 Respiratory Rate 21 04/28/16 14:00 Blood Pressure 142/53 04/28/16 14:00 O2 Sat by Pulse Oximetry (%) 99 04/28/16 10:09 Constitutional: Yes: No Distress, Calm Cardiovascular: Yes: Regular Rate and Rhythm Respiratory: Yes: Regular, Poor Air Entry Gastrointestinal: Yes: Normal Bowel Sounds, Soft Musculoskeletal: Yes: WNL Extremities: Yes: Other (chronic changes on the legs) Integumentary: Yes: Erythema Neurological: Yes: Alert, Oriented Psychiatric: Yes: Alert Labs: CBC, BMP 04/28/16 05:35 04/28/16 05:35 Assessment/Plan patient evaluated UTI Acute on Chronic LV Diastolic Heart Failure Recent MRSA bacteremia CAD Acute on Chronic Renal Failure COPD Anemia breathing difficulty plan calculate how many days patien on vanco if more than 21 total no more vanco vanco level high resp support cc time 40 min
--- NOTE | 2016-04-28 20:33 | PN ---
Physical Exam: SUBJECTIVE: Patient seen and examined, patient is in ICU Feeling better, but still weak.In the ICU. on 50% VM. c/o dry cough. No CP. OBJECTIVE: Vital Signs Period Temp Pulse Resp BP Sys/[place] Pulse Ox Last 24 Hr 97 F-98.2 F 87-98 15-28 105-142/49-94 95-99 GENERAL: The patient is awake, alert, and fully oriented, on no acute distress. Morbid obesity. HEAD: Normal with no signs of trauma. EYES: PERRL, extraocular movements intact, sclera anicteric, conjunctiva clear. ENT: Ears normal, oropharynx clear without exudates, moist mucous membranes. NECK: Trachea midline, full range of motion, supple. LUNGS: Breath sounds equal, rhonchi b/l , no accessory muscle use, on VM. HEART: Regular rate and rhythm, S1, S2 positive ,no rub or gallop. ABDOMEN: Soft, Nt,ND, normoactive bowel sounds, no guarding, no rebound, no hepatosplenomegaly, no masses appreciated EXTREMITIES: 2+ pulses, warm, well-perfused, no edema. NEUROLOGICAL: Cranial nerves II through XII grossly intact. Normal speech, gait not observed. PSYCH: Normal mood, normal affect. SKIN: Warm, dry, normal turgor, no rashes or lesions noted Laboratory Results - last 24 hr 04/28/16 04/28/16 05:35 05:35 WBC 9.4 RBC 3.03 L Hgb 8.2 L D Hct 25.7 L MCV 84.8 MCHC 31.9 L RDW 18.2 H Plt Count 305 MPV 7.3 L Sodium 142 Potassium 4.0 Chloride 99 Carbon Dioxide 35 H Anion Gap 8 BUN 67 H Creatinine 2.5 H Random Glucose 159 H D Calcium 7.7 L Phosphorus 3.4 Magnesium 2.8 H Active Medications Generic Name Dose Route Start Last Admin Trade Name Freq PRN Reason Stop Dose Admin Acetaminophen/Codeine Phosphate 1 tab 04/27/16 19:47 Tylenol # 3 - PO Q6H PRN PAIN Albuterol Sulfate 1 amp 04/27/16 19:47 04/28/16 08:48 Ventolin 0.083% Nebulizer Soln - NEB 1 amp Q4H PRN Administration SHORT OF BREATH/WHEEZING Albuterol/Ipratropium 1 amp 04/27/16 22:00 04/28/16 14:38 Duoneb - NEB 1 amp TIDR [facility] Administration Amlodipine Besylate 10 mg 04/28/16 10:00 04/28/16 12:29 Norvasc - PO 10 mg DAILY [facility] Administration Aspirin 81 mg 04/28/16 10:00 04/28/16 09:55 Ecotrin - PO 81 mg DAILY [facility] Administration Docusate Sodium 100 mg 04/27/16 22:00 04/28/16 09:56 Colace - PO 100 mg BID [facility] Administration Duloxetine HCl 60 mg 04/28/16 10:00 04/28/16 09:56 Cymbalta - PO 60 mg DAILY [facility] Administration Epoetin Keith 10,000 unit 04/28/16 10:00 04/28/16 12:29 Procrit - SQ Not Given MOWEFR@1000 [facility] Ferrous Sulfate 325 mg 04/28/16 08:00 04/28/16 17:54 Feosol - PO 325 mg BIDWM [facility] Administration Guaifenesin 600 mg 04/27/16 22:00 04/28/16 09:57 Mucinex - PO 600 mg BID [facility] Administration Heparin Sodium (Porcine) 5,000 unit 04/27/16 22:00 04/28/16 10:09 Heparin - SQ Not Given BID [facility] Mirtazapine 7.5 mg 04/27/16 22:00 04/27/16 22:42 Remeron - PO 7.5 mg HS [facility] Administration Nystatin 1 applic 04/28/16 10:00 04/28/16 10:09 Nystop Powder - TP 1 applic DAILY [facility] Administration Pantoprazole Sodium 40 mg 04/28/16 10:00 04/28/16 09:55 Protonix - PO 40 mg DAILY [facility] Administration Polyethylene Glycol 17 gm 04/28/16 10:00 04/28/16 09:57 Miralax (For Daily Use) - PO 17 gm DAILY [facility] Administration Prednisone 30 mg 04/29/16 10:00 Deltasone - PO DAILY [facility] Pregabalin 25 mg 04/28/16 10:00 04/28/16 09:55 Lyrica - PO 25 mg DAILY [facility] Administration Fluticasone/Salmeterol 1 puff 04/27/16 22:00 04/28/16 10:05 Advair 100mcg/50mcg - IH 1 puff BID [facility] Administration Senna 1 tab 04/28/16 10:00 04/28/16 09:56 Senna - PO 1 tab DAILY [facility] Administration Sodium Chloride 2 spray 04/27/16 19:47 [place] Nasal [place] - NS Q12H PRN NASAL CONGESTION Torsemide 40 mg 04/28/16 10:00 04/28/16 09:55 Demadex - PO 40 mg DAILY [facility] Administration Microbiology 04/28/16 09:00 Sputum - Endotracheal Suction W/O Vent Gram Stain - Final 04/28/16 09:00 Sputum - Endotracheal Suction W/O Vent Sputum Culture - Final S Aureus 04/26/16 04:30 Blood - Peripheral Venous Blood Culture - Preliminary NO GROWTH OBTAINED AFTER 96 HOURS, INCUBATION TO CONTINUE FOR 1 DAYS. 04/26/16 04:30 Blood - Peripheral Venous Blood Culture - Preliminary NO GROWTH OBTAINED AFTER 96 HOURS, INCUBATION TO CONTINUE FOR 1 DAYS. 04/25/16 20:54 Urine - Urine Clean Catch Urine Culture - Final Yeast Like Organism 04/26/16 05:25 Nasopharyngeal Swab Respiratory Virus Panel - Preliminary 04/26/16 06:00 Urine For Antigen Detection Legionella Antigen - Final 04/26/16 06:00 Urine For Antigen Detection Streptococcus pneumoniae Antigen (M - Final 04/26/16 05:25 Nasopharyngeal Swab Influenza Types A,B Antigen (TONI) - Final 04/26/16 05:25 Nasopharyngeal Swab - Final Chest x-ray: Vascular congestion. Bilateral effusions. ASSESSMENT/PLAN: This is a 75-year-old man with a history of stage 4 CKD, HTN, CAD, PVD, chronic diastolic heart failure, COPD, obstructive sleep apnea, obesity-hypoventilation syndrome, lymphedema who was here 02/17-04/13 with severe sepsis, MRSA bacteremia , acute hypercapnic respiratory failure, acute renal failure and acute diastolic heart failure, was sent in from [facility] yesterday because of shortness of breath, cough and hypoxia. # Healthcare-associated pneumonia with recent MRSA bacteremia completed IV antibiotic; on Oxygen, DuoNeb , ID consult , s/p UTI completed IV antibiotics. continues on VM becomes shortness of breath. # Acute over chronic kidney injury on stage 4 CKD on Torsemide , nephrology consultation appreciated # Anemia secondary to chronic illness, CKD, s/p 1 u PRBC # Hx of Chronic hypoxic and hypercapnic respiratory failure on VM continue , Bipap if needed # CAD/chronic CHF cardiology on the case # Hypertension cont home meds # Obstructive sleep apnea: on oxygen, Bipap DVT PPX; Heparin 5000 u SQ Q8h Visit type - Emergency Visit Emergency Visit: Yes ED Registration Date: 04/26/16 Care time: The patient presented to the Emergency Department on the above date and was hospitalized for further evaluation of their emergent condition. - New Patient This patient is new to me today: No - Critical Care Critical Care patient: No
[2016-04-28] MEDS: MIRTAZAPINE 15 MG TABLET (FP) PO SCH (22:51)
[2016-04-29] MEDS: ALBUTEROL SO4 2.5/IPRATROPIUM 0.5 INH SOL 3 ML VIAL.NEB. NEB SCH ×3 (05:35→21:15)
[2016-04-29 06:09] LABS: MCH 26.8 pg (25.7-33.7); MCHC 31.5 g/dl (32.0-35.9); MEAN CELL VOLUME 85.1 fl (80-96); MEAN PLT VOLUME 7.3 fl (7.5-11.1); PLATELET COUNT 311 K/MM3 (134-434); RDW 18.2 % (11.9-15.9); WHITE BLOOD COUNT 8.5 K/mm3 (4.0-10.0)
[2016-04-29 06:55] LABS: ALBUMIN 2.2 g/dl (3.4-5.0); CALCIUM 7.8 mg/dL (8.5-10.1); CREATININE 2.1 mg/dL (0.7-1.3)
[2016-04-29 06:57] LABS: BILIRUBIN,TOTAL 0.3 mg/dL (0.2-1.0)
[2016-04-29 07:53] LABS: METAMYELOCYTE 1 % (0-2)
--- NOTE | 2016-04-29 08:48 | PN ---
Progress Note (short form) - Note Progress Note: Renal Follow up for KARLOS on CKD Pt seen and examined in the ICU awake and alert no overnight events on Venti mas denies sob, chest pain, abd pain, N/V/D lilly in place Vital Signs Temperature 98.4 F 04/29/16 06:00 Pulse Rate 88 04/29/16 06:00 Respiratory Rate 18 04/29/16 06:00 Blood Pressure 114/55 04/29/16 06:00 O2 Sat by Pulse Oximetry (%) 95 04/28/16 22:00 Intake & Output 04/26/16 04/27/16 04/28/16 04/29/16 23:59 23:59 23:59 23:59 Intake Total 740 1490 760 50 Output Total 700 700 800 900 Balance 40 790 -40 -850 Weight 222 lb 3.2 oz 227 lb 4.8 oz 227 lb 224 lb Gen: NAD on Ventimask HEENT: NC/AT, No JVD, Neck Supple CVS: RRR, No M/R Lungs: Dec BS at lung bases Abd: soft Obese, NT/ND Ext: Trace edema in LE, 1+ edema in the sacrum : Lilly in place, no bladder distension CBC, BMP 04/29/16 05:15 04/29/16 05:15 Current Medications Acetaminophen/Codeine Phosphate (Tylenol # 3 -) 1 tab PO Q6H PRN PRN Reason: PAIN Albuterol Sulfate (Ventolin 0.083% Nebulizer Soln -) 1 amp NEB Q4H PRN PRN Reason: SHORT OF BREATH/WHEEZING Last Admin: 04/28/16 08:48 Dose: 1 amp Albuterol/Ipratropium (Duoneb -) 1 amp NEB TIDR [facility] Last Admin: 04/29/16 05:35 Dose: 1 amp Amlodipine Besylate (Norvasc -) 10 mg PO DAILY [facility] Last Admin: 04/28/16 12:29 Dose: 10 mg Aspirin (Ecotrin -) 81 mg PO DAILY [facility] Last Admin: 04/28/16 09:55 Dose: 81 mg Docusate Sodium (Colace -) 100 mg PO BID [facility] Last Admin: 04/28/16 22:52 Dose: 100 mg Duloxetine HCl (Cymbalta -) 60 mg PO DAILY [facility] Last Admin: 04/28/16 09:56 Dose: 60 mg Epoetin Keith (Procrit -) 10,000 unit SQ MOWEFR@1000 [facility] Last Admin: 04/28/16 12:29 Dose: Not Given Ferrous Sulfate (Feosol -) 325 mg PO BIDWM [facility] Last Admin: 04/28/16 17:54 Dose: 325 mg Guaifenesin (Mucinex -) 600 mg PO BID [facility] Last Admin: 04/28/16 22:51 Dose: 600 mg Heparin Sodium (Porcine) (Heparin -) 5,000 unit SQ BID [facility] Last Admin: 04/28/16 22:50 Dose: 5,000 unit Mirtazapine (Remeron -) 7.5 mg PO HS [facility] Last Admin: 04/28/16 22:51 Dose: 7.5 mg Nystatin (Nystop Powder -) 1 applic TP DAILY [facility] Last Admin: 04/28/16 10:09 Dose: 1 applic Pantoprazole Sodium (Protonix -) 40 mg PO DAILY [facility] Last Admin: 04/28/16 09:55 Dose: 40 mg Polyethylene Glycol (Miralax (For Daily Use) -) 17 gm PO DAILY [facility] Last Admin: 04/28/16 09:57 Dose: 17 gm Prednisone (Deltasone -) 30 mg PO DAILY [facility] Pregabalin (Lyrica -) 25 mg PO DAILY [facility] Last Admin: 04/28/16 09:55 Dose: 25 mg Fluticasone/Salmeterol (Advair 100mcg/50mcg -) 1 puff IH BID [facility] Last Admin: 04/28/16 22:52 Dose: 1 puff Senna (Senna -) 1 tab PO DAILY [facility] Last Admin: 04/28/16 09:56 Dose: 1 tab Sodium Chloride ([place] Nasal [place] -) 2 spray NS Q12H PRN PRN Reason: NASAL CONGESTION Torsemide (Demadex -) 40 mg PO DAILY [facility] Last Admin: 04/28/16 09:55 Dose: 40 mg A/P 75 year old Gentleman with PMhx of CKD (Hx of KARLOS requiring dialysis), Hypertension, COPD on O2, BPH, Gout, MRSA Bactermia from catheter site infection , CHF presented with SOB and cough and found to have acute on chronic anemia and KARLOS with BUN/Cr of 41/2.3. #Acute on Chronic Renal Insufficiency in setting of acute anemia/PNA and CHF Renal function improving toward baseline of 1.6 Continue Torsemide 40mg Daily Keep MAP> 65 avoid NSAIDS, PIPER/ARB, Contrast at this time No indication for RADIOISOTOPE TECHNOLOGIST Start Flomax and consider trial of void in a few days (pt with urinary retention on prior admission) #CHF/COPD O2 ok on Ventimask, titrate as per ICU continue Torsemide 40mg Daily Cardiology following taper steroids #Acute On Chronic Anemia Hgb stable since transfusion Resume Epogen TIW Transfuse as per ICU protocol #MRSA Bactermia from CVC related infection Continue Vanco dosed by levels as per RENUKA Johnson DO
[2016-04-29] MEDS: FERROUS SO4 325 MG TABLET (FP) PO SCH ×2 (08:53→18:14)
[2016-04-29] MEDS: PREGABALIN 25 MG CAPSULE PO SCH (09:11)
[2016-04-29] MEDS: DULoxetine HCL 30 MG CAPSULE.DR (FP) PO SCH (09:11)
[2016-04-29] MEDS: predniSONE 10 MG TABLET (UD) PO SCH (09:22)
[2016-04-29] MEDS: ASPIRIN COATED 81 MG TABLET.EC PO SCH (09:22)
[2016-04-29] MEDS: TORSEMIDE 20 MG TABLET (FP) PO SCH (09:23)
[2016-04-29] MEDS: amLODIPine BESYLATE 10 MG TABLET (FP) PO SCH (09:23)
[2016-04-29] MEDS: PANTOPRAZOLE 40 MG TABLET (FP) PO SCH (09:23)
[2016-04-29] MEDS: DOCUSATE SODIUM 100 MG CAPSULE (FP) PO SCH ×2 (09:23→22:14)
[2016-04-29] MEDS: SENNOSIDES 8.6MG TABLET (FP) PO SCH (09:23)
[2016-04-29] MEDS: guaiFENesin 600 MG TABLET.ER (FP) PO SCH ×2 (09:23→22:13)
[2016-04-29] MEDS: POLYETHYLENE GLYCOL 3350 119 GM BTL PO SCH (09:24)
[2016-04-29] MEDS: HEPARIN NA (PORCINE) 5,000 UNITS/ML 1ML VIAL SQ SCH ×2 (09:24→22:13)
[2016-04-29] MEDS: TAMSULOSIN HCL 0.4 MG CAP.ER.24H (FP) PO SCH (10:14)
--- NOTE | 2016-04-29 10:41 | PN ---
Progress Note (short form) - Note Progress Note: PULMONARY/CCM Pt seen and examined in the ICU. Remains on 50% ventimask. States breathing is improving. +nonproductive cough. No fevers recorded. No chest pain. Last Vital Signs Temp Pulse Resp BP Pulse Ox 98.4 F 88 19 117/49 100 04/29/16 06:00 04/29/16 10:00 04/29/16 10:00 04/29/16 10:00 04/29/16 09:56 Intake & Output 04/26/16 04/27/16 04/28/16 04/29/16 23:59 23:59 23:59 23:59 Intake Total 740 1490 760 700 Output Total 700 700 800 900 Balance 40 790 -40 -200 Weight 222 lb 3.2 oz 227 lb 4.8 oz 227 lb 224 lb Gen: less tachypneic Heart: RRR Lung: decreased breath sounds at the bases Abd: soft, nontender Ext: no edema, chronic changes CBC, BMP 04/29/16 05:15 04/29/16 05:15 Active Medications Acetaminophen/Codeine Phosphate (Tylenol # 3 -) 1 tab PO Q6H PRN PRN Reason: PAIN Albuterol Sulfate (Ventolin 0.083% Nebulizer Soln -) 1 amp NEB Q4H PRN PRN Reason: SHORT OF BREATH/WHEEZING Last Admin: 04/28/16 08:48 Dose: 1 amp Albuterol/Ipratropium (Duoneb -) 1 amp NEB TIDR [facility] Last Admin: 04/29/16 05:35 Dose: 1 amp Amlodipine Besylate (Norvasc -) 10 mg PO DAILY [facility] Last Admin: 04/29/16 09:23 Dose: 10 mg Aspirin (Ecotrin -) 81 mg PO DAILY [facility] Last Admin: 04/29/16 09:22 Dose: 81 mg Docusate Sodium (Colace -) 100 mg PO BID [facility] Last Admin: 04/29/16 09:23 Dose: 100 mg Duloxetine HCl (Cymbalta -) 60 mg PO DAILY [facility] Last Admin: 04/29/16 09:11 Dose: 60 mg Epoetin Keith (Procrit -) 10,000 unit SQ MOWEFR@1000 [facility] Last Admin: 04/28/16 12:29 Dose: Not Given Ferrous Sulfate (Feosol -) 325 mg PO BIDWM [facility] Last Admin: 04/29/16 08:53 Dose: 325 mg Guaifenesin (Mucinex -) 600 mg PO BID [facility] Last Admin: 04/29/16 09:23 Dose: 600 mg Heparin Sodium (Porcine) (Heparin -) 5,000 unit SQ BID [facility] Last Admin: 04/29/16 09:24 Dose: Not Given Mirtazapine (Remeron -) 7.5 mg PO HS [facility] Last Admin: 04/28/16 22:51 Dose: 7.5 mg Nystatin (Nystop Powder -) 1 applic TP DAILY [facility] Last Admin: 04/28/16 10:09 Dose: 1 applic Pantoprazole Sodium (Protonix -) 40 mg PO DAILY [facility] Last Admin: 04/29/16 09:23 Dose: 40 mg Polyethylene Glycol (Miralax (For Daily Use) -) 17 gm PO DAILY [facility] Last Admin: 04/29/16 09:24 Dose: 17 gm Prednisone (Deltasone -) 30 mg PO DAILY [facility] Last Admin: 04/29/16 09:22 Dose: 30 mg Pregabalin (Lyrica -) 25 mg PO DAILY [facility] Last Admin: 04/29/16 09:11 Dose: 25 mg Fluticasone/Salmeterol (Advair 100mcg/50mcg -) 1 puff IH BID [facility] Last Admin: 04/28/16 22:52 Dose: 1 puff Senna (Senna -) 1 tab PO DAILY [facility] Last Admin: 04/29/16 09:23 Dose: 1 tab Sodium Chloride ([place] Nasal [place] -) 2 spray NS Q12H PRN PRN Reason: NASAL CONGESTION Tamsulosin HCl (Flomax -) 0.4 mg PO DAILY@0830 [facility] Last Admin: 04/29/16 10:14 Dose: 0.4 mg Torsemide (Demadex -) 40 mg PO DAILY [facility] Last Admin: 04/29/16 09:23 Dose: 40 mg A/P UTI Acute on Chronic LV Diastolic Heart Failure Recent MRSA bacteremia CAD Acute on Chronic Renal Failure COPD Anemia - s/p empiric antibiotics - f/u cultures, narrow coverage pending results - continue demadex 40mg daily - monitor urine output, creatinine - monitor H/H - taper off steroids - inhaled bronchodilators - taper Fio2 to keep SpO2 >90% - PO as tolerated - DVT/GI prophylaxis - can monitor on telemetry with pulse oximetry monitoring
[2016-04-29] MEDS: FLUTICASONE/SALMETEROL 100 MCG/50 MCG DISKUS IH SCH ×2 (11:30→22:14)
[2016-04-29] MEDS: NYSTATIN POWDER 100,000 UNITS/GM - 15 GM TOPICAL POWDER TP SCH (12:20)
--- NOTE | 2016-04-29 13:48 | PN ---
Progress Note, Physician History of Present Illness: seen and examined today in nad. no overnight events. no new complaints. - Current Medication List Current Medications: Active Medications Acetaminophen/Codeine Phosphate (Tylenol # 3 -) 1 tab PO Q6H PRN PRN Reason: PAIN Albuterol Sulfate (Ventolin 0.083% Nebulizer Soln -) 1 amp NEB Q4H PRN PRN Reason: SHORT OF BREATH/WHEEZING Last Admin: 04/28/16 08:48 Dose: 1 amp Albuterol/Ipratropium (Duoneb -) 1 amp NEB TIDR [facility] Last Admin: 04/29/16 13:15 Dose: 1 amp Amlodipine Besylate (Norvasc -) 10 mg PO DAILY [facility] Last Admin: 04/29/16 09:23 Dose: 10 mg Aspirin (Ecotrin -) 81 mg PO DAILY [facility] Last Admin: 04/29/16 09:22 Dose: 81 mg Docusate Sodium (Colace -) 100 mg PO BID [facility] Last Admin: 04/29/16 09:23 Dose: 100 mg Duloxetine HCl (Cymbalta -) 60 mg PO DAILY [facility] Last Admin: 04/29/16 09:11 Dose: 60 mg Epoetin Keith (Procrit -) 10,000 unit SQ MOWEFR@1000 [facility] Last Admin: 04/28/16 12:29 Dose: Not Given Ferrous Sulfate (Feosol -) 325 mg PO BIDWM [facility] Last Admin: 04/29/16 08:53 Dose: 325 mg Guaifenesin (Mucinex -) 600 mg PO BID [facility] Last Admin: 04/29/16 09:23 Dose: 600 mg Heparin Sodium (Porcine) (Heparin -) 5,000 unit SQ BID [facility] Last Admin: 04/29/16 09:24 Dose: Not Given Mirtazapine (Remeron -) 7.5 mg PO HS [facility] Last Admin: 04/28/16 22:51 Dose: 7.5 mg Nystatin (Nystop Powder -) 1 applic TP DAILY [facility] Last Admin: 04/29/16 12:20 Dose: 1 applic Pantoprazole Sodium (Protonix -) 40 mg PO DAILY [facility] Last Admin: 04/29/16 09:23 Dose: 40 mg Polyethylene Glycol (Miralax (For Daily Use) -) 17 gm PO DAILY [facility] Last Admin: 01/21/17 09:24 Dose: 17 gm Prednisone (Deltasone -) 30 mg PO DAILY [facility] Last Admin: 04/29/16 09:22 Dose: 30 mg Pregabalin (Lyrica -) 25 mg PO DAILY [facility] Last Admin: 04/29/16 09:11 Dose: 25 mg Fluticasone/Salmeterol (Advair 100mcg/50mcg -) 1 puff IH BID [facility] Last Admin: 04/29/16 11:30 Dose: 1 puff Senna (Senna -) 1 tab PO DAILY [facility] Last Admin: 04/29/16 09:23 Dose: 1 tab Sodium Chloride ([place] Nasal [place] -) 2 spray NS Q12H PRN PRN Reason: NASAL CONGESTION Tamsulosin HCl (Flomax -) 0.4 mg PO DAILY@0830 [facility] Last Admin: 04/29/16 10:14 Dose: 0.4 mg Torsemide (Demadex -) 40 mg PO DAILY [facility] Last Admin: 04/29/16 09:23 Dose: 40 mg - Objective Vital Signs: Vital Signs Temperature 98.4 F 04/29/16 06:00 Pulse Rate 85 04/29/16 13:20 Respiratory Rate 24 04/29/16 12:00 Blood Pressure 142/70 04/29/16 12:00 O2 Sat by Pulse Oximetry (%) 99 04/29/16 13:20 Constitutional: Yes: No Distress, Calm, Obese Eyes: Yes: WNL, Conjunctiva Clear, EOM Intact, PERRL HENT: Yes: WNL, Atraumatic, Normocephalic Neck: Yes: WNL, Supple, Trachea Midline Cardiovascular: Yes: Regular Rate and Rhythm, S1, S2. No: Bradycardia, Tachycardia, Pulse Irregular, Bruit, JVD, Gallop, Murmur, Rub, S3, S4, Varicosities Respiratory: Yes: Regular, Diminished, On Venti-Mask. No: Rales, Rhonchi, SOB, Wheezes Gastrointestinal: Yes: WNL, Normal Bowel Sounds, Soft. No: Distention, Tenderness Musculoskeletal: Yes: Muscle Weakness Edema: Yes Edema: LLE: Trace, RLE: Trace Peripheral Pulses WNL: Yes Peripheral Pulses: Left Doralis Pedis: 2+, Right Dorsalis Pedis: 2+ Integumentary: Yes: Venous Stasis Changes Neurological: Yes: Alert, Oriented Psychiatric: Yes: Alert, Oriented Labs: CBC, BMP 04/29/16 05:15 04/29/16 05:15 - ....Imaging Chest X-ray: Report Reviewed, Image Reviewed EKG: Report Reviewed, Image Reviewed Other: Report Reviewed, Image Reviewed (tele-nsr, frequent apcs, pvcs, short episodes of psvt) Problem List - Problems (1) Acute exacerbation of chronic obstructive pulmonary disease (COPD) Code(s): J44.1 - CHRONIC OBSTRUCTIVE PULMONARY DISEASE W (ACUTE) EXACERBATION (2) Anemia Code(s): D64.9 - ANEMIA, UNSPECIFIED (3) CAD (coronary artery disease) Code(s): I25.10 - ATHSCL HEART DISEASE OF [place] CORONARY ARTERY W/O ANG PCTRS (4) Chronic kidney disease (CKD) stage G3a/A2, moderately decreased glomerular filtration rate (GFR) between 45-59 mL/min/1.73 square meter and albuminuria creatinine ratio between 30-299 mg/g Code(s): N18.3 - CHRONIC KIDNEY DISEASE, STAGE 3 (MODERATE) (5) Pneumonia Code(s): J18.9 - PNEUMONIA, UNSPECIFIED ORGANISM Qualifiers: Pneumonia type: due to unspecified organism Laterality: left Lung location: lower lobe of lung Qualified Code(s): J18.9 - Pneumonia, unspecified organism (6) Acute and chronic respiratory failure ([id number]) Code(s): J96.20 - ACUTE AND CHR RESP FAILURE, UNSP W HYPOXIA OR HYPERCAPNIA Qualifiers: Respiratory failure complication: hypoxia and hypercapnia Qualified Code(s): J96.21 - Acute and chronic respiratory failure with hypoxia (7) Acute on chronic diastolic (congestive) heart failure Code(s): I50.33 - ACUTE ON CHRONIC DIASTOLIC (CONGESTIVE) HEART FAILURE (8) Aortic aneurysm, intrathoracic Code(s): I71.2 - THORACIC AORTIC ANEURYSM, WITHOUT RUPTURE (9) Arteriosclerotic heart disease (ASHD) Code(s): I25.10 - ATHSCL HEART DISEASE OF [place] CORONARY ARTERY W/O ANG PCTRS (10) History of coronary artery stent placement Code(s): Z95.5 - PRESENCE OF CORONARY ANGIOPLASTY IMPLANT AND GRAFT (11) Hyperlipidemia Code(s): E78.5 - HYPERLIPIDEMIA, UNSPECIFIED (12) Hypertension Code(s): I10 - ESSENTIAL (PRIMARY) HYPERTENSION (13) Obstructive sleep apnea Code(s): G47.33 - OBSTRUCTIVE SLEEP APNEA (ADULT) (PEDIATRIC) (14) Diabetes Code(s): E11.9 - TYPE 2 DIABETES MELLITUS WITHOUT COMPLICATIONS Qualifiers: Diabetes mellitus type: type 2 Diabetes mellitus complication status: with kidney complications Diabetes mellitus complication detail: with chronic kidney disease Assessment/Plan IMP: SOB Acute on Chronic COPD Recent Sepsis, gram + Bacteremia, infected HD catheter- removed Recent TARYN on CKD CAD h/o stents REC: SOB-Resp failure: required intubation and s/p thoracentesis for pleural effusions during last admission -Chronic diastolic CHF -currently at baseline volume status -Cont Torsemide 40mg po daily -monitor strict I/Os and daily weights CAD: s/p PCI with stents this past year -thrombocytopenia on previous admission resolved -cont ASA 81mg daily -not on bblocker due to severe COPD -Having short runs PSVT and NSVT, keep K and Mg repleted. -Echo last admission normal LV function
--- NOTE | 2016-04-29 16:39 | PN ---
Progress Note, Physician History of Present Illness: patient still on venti mask says he is better breathing better - Current Medication List Current Medications: Active Medications Acetaminophen/Codeine Phosphate (Tylenol # 3 -) 1 tab PO Q6H PRN PRN Reason: PAIN Albuterol Sulfate (Ventolin 0.083% Nebulizer Soln -) 1 amp NEB Q4H PRN PRN Reason: SHORT OF BREATH/WHEEZING Last Admin: 04/28/16 08:48 Dose: 1 amp Albuterol/Ipratropium (Duoneb -) 1 amp NEB TIDR [facility] Last Admin: 04/29/16 13:15 Dose: 1 amp Amlodipine Besylate (Norvasc -) 10 mg PO DAILY [facility] Last Admin: 04/29/16 09:23 Dose: 10 mg Aspirin (Ecotrin -) 81 mg PO DAILY [facility] Last Admin: 04/29/16 09:22 Dose: 81 mg Docusate Sodium (Colace -) 100 mg PO BID [facility] Last Admin: 04/29/16 09:23 Dose: 100 mg Duloxetine HCl (Cymbalta -) 60 mg PO DAILY [facility] Last Admin: 04/29/16 09:11 Dose: 60 mg Epoetin Keith (Procrit -) 10,000 unit SQ MOWEFR@1000 [facility] Last Admin: 04/28/16 12:29 Dose: Not Given Ferrous Sulfate (Feosol -) 325 mg PO BIDWM [facility] Last Admin: 04/29/16 08:53 Dose: 325 mg Guaifenesin (Mucinex -) 600 mg PO BID [facility] Last Admin: 04/29/16 09:23 Dose: 600 mg Heparin Sodium (Porcine) (Heparin -) 5,000 unit SQ BID [facility] Last Admin: 04/29/16 09:24 Dose: Not Given Mirtazapine (Remeron -) 7.5 mg PO HS [facility] Last Admin: 04/28/16 22:51 Dose: 7.5 mg Nystatin (Nystop Powder -) 1 applic TP DAILY [facility] Last Admin: 04/29/16 12:20 Dose: 1 applic Pantoprazole Sodium (Protonix -) 40 mg PO DAILY [facility] Last Admin: 04/29/16 09:23 Dose: 40 mg Polyethylene Glycol (Miralax (For Daily Use) -) 17 gm PO DAILY [facility] Last Admin: 04/29/16 09:24 Dose: 17 gm Prednisone (Deltasone -) 30 mg PO DAILY [facility] Last Admin: 04/29/16 09:22 Dose: 30 mg Pregabalin (Lyrica -) 25 mg PO DAILY [facility] Last Admin: 04/29/16 09:11 Dose: 25 mg Fluticasone/Salmeterol (Advair 100mcg/50mcg -) 1 puff IH BID [facility] Last Admin: 04/29/16 11:30 Dose: 1 puff Senna (Senna -) 1 tab PO DAILY [facility] Last Admin: 04/29/16 09:23 Dose: 1 tab Sodium Chloride ([place] Nasal [place] -) 2 spray NS Q12H PRN PRN Reason: NASAL CONGESTION Tamsulosin HCl (Flomax -) 0.4 mg PO DAILY@0830 [facility] Last Admin: 04/29/16 10:14 Dose: 0.4 mg Torsemide (Demadex -) 40 mg PO DAILY [facility] Last Admin: 04/29/16 09:23 Dose: 40 mg - Objective Vital Signs: Vital Signs Temperature 98.4 F 04/29/16 06:00 Pulse Rate 99 H 04/29/16 14:00 Respiratory Rate 04/29/16 14:00 Blood Pressure 130/56 04/29/16 14:00 O2 Sat by Pulse Oximetry (%) 99 04/29/16 13:20 Constitutional: Yes: No Distress, Calm Eyes: Yes: Conjunctiva Clear Cardiovascular: Yes: Regular Rate and Rhythm Respiratory: Yes: Regular, Poor Air Entry Gastrointestinal: Yes: Normal Bowel Sounds, Soft Extremities: Yes: Other Neurological: Yes: Alert, Oriented Psychiatric: Yes: Alert Labs: CBC, BMP 04/29/16 05:15 04/29/16 05:15 Assessment/Plan patient evaluated UTI Acute on Chronic LV Diastolic Heart Failure Recent MRSA bacteremia CAD Acute on Chronic Renal Failure COPD Anemia breathing difficulty plan continue current mgmt continue resp mgmt incentive igor cc time 40 min
--- NOTE | 2016-04-29 19:10 | PN ---
Physical Exam: SUBJECTIVE: Patient seen and examined Patient is feeling better, continues to be on VM. OBJECTIVE: Vital Signs Period Temp Pulse Resp BP Sys/[place] Pulse Ox Last 24 Hr 98.4 F-98.9 F 84-99 18-26 114-142/49-74 94-100 GENERAL: The patient is awake, alert, and fully oriented, on no acute distress. Morbid obesity. HEAD: Normal with no signs of trauma. EYES: PERRL, extraocular movements intact, sclera anicteric, conjunctiva clear. ENT: Ears normal, oropharynx clear without exudates, moist mucous membranes. NECK: Trachea midline, full range of motion, supple. LUNGS: Breath sounds equal, rhonchi b/l , no accessory muscle use, on VM. HEART: Regular rate and rhythm, S1, S2 positive ,no rub or gallop. ABDOMEN: Soft, Nt,ND, normoactive bowel sounds, no guarding, no rebound, no hepatosplenomegaly, no masses appreciated EXTREMITIES: 2+ pulses, warm, well-perfused, no edema. NEUROLOGICAL: Cranial nerves II through XII grossly intact. Normal speech, gait not observed. PSYCH: Normal mood, normal affect. SKIN: Warm, dry, normal turgor, no rashes or lesions noted Laboratory Results - last 24 hr 04/26/16 04/29/16 04/29/16 07:40 05:15 05:15 WBC 8.5 RBC 3.02 L Hgb 8.1 L Hct 25.7 L MCV 85.1 MCHC 31.5 L RDW 18.2 H Plt Count 311 MPV 7.3 L Neutrophils % 70.0 D Lymphocytes % 20.0 D Monocytes % 4.0 Eosinophils % 4.0 D Metamyelocytes 1 D Myelocytes 1 Sodium 144 Potassium 4.5 Chloride 99 Carbon Dioxide 38 H Anion Gap 7 L BUN 72 H Creatinine 2.1 H Creat Clearance w eGFR 31.11 Random Glucose 119 H D Calcium 7.8 L Total Bilirubin 0.3 AST 13 L ALT 6 L D Alkaline Phosphatase 92 D Total Protein 5.0 L Albumin 2.2 L Crossmatch See Detail Active Medications Generic Name Dose Route Start Last Admin Trade Name Freq PRN Reason Stop Dose Admin Acetaminophen/Codeine Phosphate 1 tab 04/27/16 19:47 Tylenol # 3 - PO Q6H PRN PAIN Albuterol Sulfate 1 amp 04/27/16 19:47 04/28/16 08:48 Ventolin 0.083% Nebulizer Soln - NEB 1 amp Q4H PRN Administration SHORT OF BREATH/WHEEZING Albuterol/Ipratropium 1 amp 04/27/16 22:00 04/29/16 13:15 Duoneb - NEB 1 amp TIDR [facility] Administration Amlodipine Besylate 10 mg 04/28/16 10:00 04/29/16 09:23 Norvasc - PO 10 mg DAILY [facility] Administration Aspirin 81 mg 04/28/16 10:00 04/29/16 09:22 Ecotrin - PO 81 mg DAILY [facility] Administration Docusate Sodium 100 mg 04/27/16 22:00 04/29/16 09:23 Colace - PO 100 mg BID [facility] Administration Duloxetine HCl 60 mg 04/28/16 10:00 04/29/16 09:11 Cymbalta - PO 60 mg DAILY [facility] Administration Epoetin Keith 10,000 unit 04/28/16 10:00 04/28/16 12:29 Procrit - SQ Not Given MOWEFR@1000 [facility] Ferrous Sulfate 325 mg 04/28/16 08:00 04/29/16 18:14 Feosol - PO 325 mg BIDWM [facility] Administration Guaifenesin 600 mg 04/27/16 22:00 04/29/16 09:23 Mucinex - PO 600 mg BID [facility] Administration Heparin Sodium (Porcine) 5,000 unit 04/27/16 22:00 04/29/16 09:24 Heparin - SQ Not Given BID [facility] Mirtazapine 7.5 mg 04/27/16 22:00 04/28/16 22:51 Remeron - PO 7.5 mg HS [facility] Administration Nystatin 1 applic 04/28/16 10:00 04/29/16 12:20 Nystop Powder - TP 1 applic DAILY [facility] Administration Pantoprazole Sodium 40 mg 04/28/16 10:00 04/29/16 09:23 Protonix - PO 40 mg DAILY [facility] Administration Polyethylene Glycol 17 gm 04/28/16 10:00 04/29/16 09:24 Miralax (For Daily Use) - PO 17 gm DAILY [facility] Administration Prednisone 30 mg 04/29/16 10:00 04/29/16 09:22 Deltasone - PO 30 mg DAILY [facility] Administration Pregabalin 25 mg 04/28/16 10:00 04/29/16 09:11 Lyrica - PO 25 mg DAILY [facility] Administration Fluticasone/Salmeterol 1 puff 04/27/16 22:00 04/29/16 11:30 Advair 100mcg/50mcg - IH 1 puff BID [facility] Administration Senna 1 tab 04/28/16 10:00 04/29/16 09:23 Senna - PO 1 tab DAILY [facility] Administration Sodium Chloride 2 spray 04/27/16 19:47 [place] Nasal [place] - NS Q12H PRN NASAL CONGESTION Tamsulosin HCl 0.4 mg 04/29/16 09:00 04/29/16 10:14 Flomax - PO 0.4 mg DAILY@0830 [facility] Administration Torsemide 40 mg 04/28/16 10:00 04/29/16 09:23 Demadex - PO 40 mg DAILY [facility] Administration Chest x-ray: Vascular congestion. Bilateral effusions. ASSESSMENT/PLAN: This is a 75-year-old man with a history of stage 4 CKD, HTN, CAD, PVD, chronic diastolic heart failure, COPD, obstructive sleep apnea, obesity-hypoventilation syndrome, lymphedema who was here 02/17-04/13 with severe sepsis, MRSA bacteremia , acute hypercapnic respiratory failure, acute renal failure and acute diastolic heart failure, was sent in from [facility] yesterday because of shortness of breath, cough and hypoxia. # Healthcare-associated pneumonia with recent MRSA bacteremia completed IV antibiotic; on Oxygen, DuoNeb , ID consult , s/p UTI completed IV antibiotics. continues on VM becomes shortness of breath. # Acute over chronic kidney injury on stage 4 CKD on Torsemide , nephrology appreciated monitor strict I/Os and daily weights # Anemia secondary to chronic illness, CKD, s/p 1 u PRBC # Hx of Chronic hypoxic and hypercapnic respiratory failure on VM continue , Bipap if needed # CAD/chronic CHF cardiology on the case, not on bblocker due to severe COPD s/p PCI with stents this past year, cont ASA 81mg daily Cont Torsemide 40mg po daily # Hypertension cont home meds #thrombocytopenia on previous admission resolved # Obstructive sleep apnea: on oxygen, Bipap # Having short runs PSVT and NSVT, keep K and Mg repleted. monitor DVT PPX; Heparin 5000 u SQ Q8h Visit type - Emergency Visit Emergency Visit: Yes ED Registration Date: 04/26/16 Care time: The patient presented to the Emergency Department on the above date and was hospitalized for further evaluation of their emergent condition. - New Patient This patient is new to me today: No - Critical Care Critical Care patient: No - Discharge Referral Referred to [facility] No
[2016-04-29] MEDS: MIRTAZAPINE 15 MG TABLET (FP) PO SCH (22:14)
[2016-04-30] MEDS: ALBUTEROL SO4 0.083% IH SOL 2.5 MG/3 ML VIAL.NEB. NEB PRN (02:14)
[2016-04-30] MEDS: ALBUTEROL SO4 2.5/IPRATROPIUM 0.5 INH SOL 3 ML VIAL.NEB. NEB SCH ×3 (06:02→22:20)
[2016-04-30 06:14] LABS: MCH 27.3 pg (25.7-33.7); MEAN CELL VOLUME 85.2 fl (80-96); MEAN PLT VOLUME 7.2 fl (7.5-11.1); PLATELET COUNT 306 K/MM3 (134-434); RDW 17.8 % (11.9-15.9); WHITE BLOOD COUNT 10.4 K/mm3 (4.0-10.0)
[2016-04-30 07:19] LABS: ALBUMIN 2.2 g/dl (3.4-5.0); BILIRUBIN,TOTAL 0.2 mg/dL (0.2-1.0); CALCIUM 7.5 mg/dL (8.5-10.1); CREATININE 1.8 mg/dL (0.7-1.3); MAGNESIUM 2.3 mg/dL (1.8-2.4); PHOSPHOROUS 1.6 mg/dL (2.5-4.9); TOT PROT 4.8 g/dl (6.4-8.2)
[2016-04-30 07:47] LABS: PLATELET COMMENT2 NO CLOTTING DETECTED; PLATELET ESTIMATE ADEQUATE (NORMAL)
[2016-04-30 07:48] LABS: ANISOCYTOSIS 2+; HYPOCHROMIA 2+; POIKILOCYTOSIS 2+; POLYCHROMASIA 1+
[2016-04-30] MEDS: FERROUS SO4 325 MG TABLET (FP) PO SCH ×2 (09:00→18:08)
[2016-04-30] MEDS: TAMSULOSIN HCL 0.4 MG CAP.ER.24H (FP) PO SCH (09:23)
[2016-04-30] MEDS: FLUTICASONE/SALMETEROL 100 MCG/50 MCG DISKUS IH SCH ×2 (09:24→21:30)
[2016-04-30] MEDS: DOCUSATE SODIUM 100 MG CAPSULE (FP) PO SCH ×2 (09:25→21:28)
[2016-04-30] MEDS: predniSONE 10 MG TABLET (UD) PO SCH (09:26)
[2016-04-30] MEDS: DULoxetine HCL 30 MG CAPSULE.DR (FP) PO SCH (09:26)
[2016-04-30] MEDS: HEPARIN NA (PORCINE) 5,000 UNITS/ML 1ML VIAL SQ SCH ×3 (09:28→21:40)
[2016-04-30] MEDS: ASPIRIN COATED 81 MG TABLET.EC PO SCH (09:28)
[2016-04-30] MEDS: TORSEMIDE 20 MG TABLET (FP) PO SCH (09:28)
[2016-04-30] MEDS: guaiFENesin 600 MG TABLET.ER (FP) PO SCH ×2 (09:29→21:30)
[2016-04-30] MEDS: PREGABALIN 25 MG CAPSULE PO SCH (09:29)
[2016-04-30] MEDS: POLYETHYLENE GLYCOL 3350 119 GM BTL PO SCH (09:29)
[2016-04-30] MEDS: amLODIPine BESYLATE 10 MG TABLET (FP) PO SCH (09:29)
[2016-04-30] MEDS: PANTOPRAZOLE 40 MG TABLET (FP) PO SCH (09:30)
[2016-04-30] MEDS: NYSTATIN POWDER 100,000 UNITS/GM - 15 GM TOPICAL POWDER TP SCH (09:30)
[2016-04-30] MEDS: SENNOSIDES 8.6MG TABLET (FP) PO SCH (09:30)
[2016-04-30] MEDS ORDERED: POTASSIUM PHOSPHATE 30 MM in DEXTROSE 5%-WATER - 250 ML IVPB ONE (10:14)
--- NOTE | 2016-04-30 10:52 | PN ---
Progress Note (short form) - Note Progress Note: PULMONARY/CCM Pt seen and examined in the ICU. Remains on 50% ventimask. States breathing continues to improve. +nonproductive cough. No fevers recorded. No chest pain. Last Vital Signs Temp Pulse Resp BP Pulse Ox 98 F 86 24 125/55 100 04/30/16 10:00 04/30/16 10:00 04/30/16 10:00 04/30/16 10:00 04/30/16 08:00 Intake & Output 04/27/16 04/28/16 04/29/16 04/30/16 23:59 23:59 23:59 23:59 Intake Total 7142 627 2261 50 Output Total 944 654 5703 900 Balance 790 -40 0 -850 Weight 227 lb 4.8 oz 227 lb 224 lb 225 lb 6.4 oz Gen: less tachypneic Heart: RRR Lung: decreased breath sounds at the bases Abd: soft, nontender Ext: no edema, chronic changes CBC, BMP 04/30/16 05:00 04/30/16 05:00 Active Medications Acetaminophen/Codeine Phosphate (Tylenol # 3 -) 1 tab PO Q6H PRN PRN Reason: PAIN Albuterol Sulfate (Ventolin 0.083% Nebulizer Soln -) 1 amp NEB Q4H PRN PRN Reason: SHORT OF BREATH/WHEEZING Last Admin: 04/30/16 02:14 Dose: 1 amp Albuterol/Ipratropium (Duoneb -) 1 amp NEB TIDR [facility] Last Admin: 04/30/16 06:02 Dose: 1 amp Amlodipine Besylate (Norvasc -) 10 mg PO DAILY [facility] Last Admin: 04/30/16 09:29 Dose: 10 mg Aspirin (Ecotrin -) 81 mg PO DAILY [facility] Last Admin: 04/30/16 09:28 Dose: 81 mg Docusate Sodium (Colace -) 100 mg PO BID [facility] Last Admin: 04/30/16 09:25 Dose: Not Given Duloxetine HCl (Cymbalta -) 60 mg PO DAILY [facility] Last Admin: 04/30/16 09:26 Dose: 60 mg Epoetin Keith (Procrit -) 10,000 unit SQ MOWEFR@1000 [facility] Last Admin: 04/28/16 12:29 Dose: Not Given Ferrous Sulfate (Feosol -) 325 mg PO BIDWM [facility] Last Admin: 04/30/16 09:00 Dose: 325 mg Guaifenesin (Mucinex -) 600 mg PO BID [facility] Last Admin: 04/30/16 09:29 Dose: 600 mg Heparin Sodium (Porcine) (Heparin -) 5,000 unit SQ BID [facility] Last Admin: 04/30/16 09:28 Dose: Not Given Potassium Phosphate 30 mm/ (Dextrose) 260 mls @ 43.333 mls/hr IVPB ONCE ONE Stop: 04/30/16 16:13 Mirtazapine (Remeron -) 7.5 mg PO HS [facility] Last Admin: 04/29/16 22:14 Dose: 7.5 mg Nystatin (Nystop Powder -) 1 applic TP DAILY [facility] Last Admin: 04/30/16 09:30 Dose: 1 applic Pantoprazole Sodium (Protonix -) 40 mg PO DAILY [facility] Last Admin: 04/30/16 09:30 Dose: 40 mg Polyethylene Glycol (Miralax (For Daily Use) -) 17 gm PO DAILY [facility] Last Admin: 04/30/16 09:29 Dose: Not Given Prednisone (Deltasone -) 30 mg PO DAILY [facility] Last Admin: 04/30/16 09:26 Dose: 30 mg Pregabalin (Lyrica -) 25 mg PO DAILY [facility] Last Admin: 04/30/16 09:29 Dose: 25 mg Fluticasone/Salmeterol (Advair 100mcg/50mcg -) 1 puff IH BID [facility] Last Admin: 04/30/16 09:24 Dose: 1 puff Senna (Senna -) 1 tab PO DAILY [facility] Last Admin: 04/30/16 09:30 Dose: Not Given Sodium Chloride ([place] Nasal [place] -) 2 spray NS Q12H PRN PRN Reason: NASAL CONGESTION Tamsulosin HCl (Flomax -) 0.4 mg PO DAILY@0830 [facility] Last Admin: 04/30/16 09:23 Dose: 0.4 mg Torsemide (Demadex -) 40 mg PO DAILY [facility] Last Admin: 04/30/16 09:28 Dose: 40 mg A/P UTI Acute on Chronic LV Diastolic Heart Failure Recent MRSA bacteremia CAD Acute on Chronic Renal Failure COPD Anemia - s/p empiric antibiotics - continue demadex 40mg daily - monitor urine output, creatinine - monitor H/H - taper off steroids - inhaled bronchodilators - taper Fio2 to keep SpO2 >90% - PO as tolerated - DVT/GI prophylaxis - can monitor on floor with pulse oximetry monitoring
--- NOTE | 2016-04-30 11:26 | PN ---
Physical Exam: SUBJECTIVE: Patient seen and examined in ICU. The pt still is using ventimask. He complaints of SOB. Denies chest pain, abdominal pain, dysuria, fever, chills. OBJECTIVE: Vital Signs Period Temp Pulse Resp BP Sys/[place] Pulse Ox Last 24 Hr 98 F-98.6 F 85-99 18-28 112-142/49-75 99-100 GENERAL: The patient is awake, alert, and fully oriented, in no acute distress. HEAD: Normal with no signs of trauma. EYES: PERRL, extraocular movements intact, sclera anicteric, conjunctiva clear. No ptosis. ENT: Ears normal, nares patent, oropharynx clear without exudates, moist mucous membranes. NECK: Trachea midline, full range of motion, supple. LUNGS: Breath sounds equal,diminished breath sounds bilaterally, no wheezes, no crackles, no accessory muscle use. HEART: Regular rate and rhythm, S1, S2 without murmur, rub or gallop. ABDOMEN: Obese, soft, nontender, nondistended, normoactive bowel sounds, no guarding, no rebound, no hepatosplenomegaly, no masses. EXTREMITIES: 2+ pulses, warm, well-perfused, trace peripheral edema, venous stasis changes B/L. NEUROLOGICAL: Cranial nerves II through XII grossly intact. Normal speech, gait not observed. PSYCH: Normal mood, normal affect. SKIN: Warm, dry, normal turgor, no rashes or lesions noted Laboratory Results - last 24 hr 04/30/16 04/30/16 05:00 05:00 WBC 10.4 H RBC 2.81 L Hgb 7.7 L Hct 24.0 L MCV 85.2 MCHC 32.0 RDW 17.8 H Plt Count 306 MPV 7.2 L Neutrophils % 83.0 H Lymphocytes % 10.0 D Monocytes % 3.0 L Band Neutrophils 3.0 D Platelet Estimate Adequate Platelet Comment No clotting detected Polychromasia 1+ Hypochromic-Microcytic 2+ Poikilocytosis 2+ Anisocytosis 2+ Sodium 142 Potassium 3.8 Chloride 99 Carbon Dioxide 36 H Anion Gap 7 L BUN 70 H Creatinine 1.8 H Creat Clearance w eGFR 37.17 Random Glucose 206 H D Calcium 7.5 L Phosphorus 1.6 L D Magnesium 2.3 Total Bilirubin 0.2 D AST 13 L ALT 10 L D Alkaline Phosphatase 98 Total Protein 4.8 L Albumin 2.2 L Vancomycin Trough 14.562 H D Active Medications Generic Name Dose Route Start Last Admin Trade Name Freq PRN Reason Stop Dose Admin Acetaminophen/Codeine Phosphate 1 tab 04/27/16 19:47 Tylenol # 3 - PO Q6H PRN PAIN Albuterol Sulfate 1 amp 04/27/16 19:47 04/30/16 02:14 Ventolin 0.083% Nebulizer Soln - NEB 1 amp Q4H PRN Administration SHORT OF BREATH/WHEEZING Albuterol/Ipratropium 1 amp 04/27/16 22:00 04/30/16 06:02 Duoneb - NEB 1 amp TIDR LESLEE Administration Amlodipine Besylate 10 mg 04/28/16 10:00 04/30/16 09:29 Norvasc - PO 10 mg DAILY LESLEE Administration Aspirin 81 mg 04/28/16 10:00 04/30/16 09:28 Ecotrin - PO 81 mg DAILY LESLEE Administration Docusate Sodium 100 mg 04/27/16 22:00 04/30/16 09:25 Colace - PO Not Given BID LESLEE Duloxetine HCl 60 mg 04/28/16 10:00 04/30/16 09:26 Cymbalta - PO 60 mg DAILY LESLEE Administration Epoetin Keith 10,000 unit 04/28/16 10:00 04/28/16 12:29 Procrit - SQ Not Given MOWEFR@1000 [facility] Ferrous Sulfate 325 mg 04/28/16 08:00 04/30/16 09:00 Feosol - PO 325 mg BIDWM LESLEE Administration Guaifenesin 600 mg 04/27/16 22:00 04/30/16 09:29 Mucinex - PO 600 mg BID LESLEE Administration Heparin Sodium (Porcine) 5,000 unit 04/27/16 22:00 04/30/16 09:28 Heparin - SQ Not Given BID LESLEE Potassium Phosphate 30 mm/ 260 mls @ 43.333 mls/hr 04/30/16 10:14 Dextrose IVPB 04/30/16 16:13 ONCE ONE Mirtazapine 7.5 mg 04/27/16 22:00 04/29/16 22:14 Remeron - PO 7.5 mg HS LESLEE Administration Nystatin 1 applic 04/28/16 10:00 04/30/16 09:30 Nystop Powder - TP 1 applic DAILY LESLEE Administration Pantoprazole Sodium 40 mg 04/28/16 10:00 04/30/16 09:30 Protonix - PO 40 mg DAILY LESLEE Administration Polyethylene Glycol 17 gm 04/28/16 10:00 04/30/16 09:29 Miralax (For Daily Use) - PO Not Given DAILY LESLEE Prednisone 30 mg 04/29/16 10:00 04/30/16 09:26 Deltasone - PO 30 mg DAILY LESLEE Administration Pregabalin 25 mg 04/28/16 10:00 04/30/16 09:29 Lyrica - PO 25 mg DAILY LESLEE Administration Fluticasone/Salmeterol 1 puff 04/27/16 22:00 04/30/16 09:24 Advair 100mcg/50mcg - IH 1 puff BID LESLEE Administration Senna 1 tab 04/28/16 10:00 04/30/16 09:30 Senna - PO Not Given DAILY LESLEE Sodium Chloride 2 spray 04/27/16 19:47 [place] Nasal [place] - NS Q12H PRN NASAL CONGESTION Tamsulosin HCl 0.4 mg 04/29/16 09:00 04/30/16 09:23 Flomax - PO 0.4 mg DAILY@0830 LESLEE Administration Torsemide 40 mg 04/28/16 10:00 04/30/16 09:28 Demadex - PO 40 mg DAILY LESLEE Administration Chest x-ray 04/30/16. No change with previous one. Mixture of congestive and basilar infiltrates. ASSESSMENT/PLAN: This is a 75-year-old man with a history of stage 4 CKD, HTN, CAD, PVD, chronic diastolic heart failure, COPD, obstructive sleep apnea, obesity-hypoventilation syndrome, lymphedema who was here 02/17-04/13 with severe sepsis, MRSA bacteremia , acute hypercapnic respiratory failure, acute renal failure and acute diastolic heart failure, was sent in from [facility] because of shortness of breath, cough and hypoxia. Admitted for HCAP. Healthcare-associated pneumonia - Had recent MRSA bacteremia -s/p empiric antibiotics - continue Oxygen, DuoNebs - ID consult -sputum culture MRSA -Urine culture-Yeast like organism -Blood cx neg. UTI -no complaints -urine cx neg Acute kidney injury on stage 4 CKD - cont.Torsemide 40 mg PO Daily - Monitor BUN, creatinine Cr today was 2.9, baseline 1.9 - nephrology consultation - monitor I&O Anemia secondary to chronic illnes, CKD -1 u PRBC given -Lasix 40 mg IV ONCE after unit -monitor H/H, stable now Chronic hypoxic and hypercapnic respiratory failure -continue Oxygen Supplementation -Pulmonology consultation -continue nebulizers CAD/chronic CHF -continue home meds Hypertension -cont home meds Obstructive sleep apnea: DVT PPX; -Heparin 5000 u SQ Q8h F/E/N No/no/low Na diet Disposition: ICU Problem List - Problems (1) CAD (coronary artery disease) Code(s): I25.10 - ATHSCL HEART DISEASE OF [place] CORONARY ARTERY W/O ANG PCTRS (2) Acute and chronic respiratory failure ([id number]) Code(s): J96.20 - ACUTE AND CHR RESP FAILURE, UNSP W HYPOXIA OR HYPERCAPNIA Qualifiers: Respiratory failure complication: hypoxia and hypercapnia Qualified Code(s): J96.21 - Acute and chronic respiratory failure with hypoxia Visit type - Emergency Visit Emergency Visit: Yes ED Registration Date: 04/26/16 Care time: The patient presented to the Emergency Department on the above date and was hospitalized for further evaluation of their emergent condition. - New Patient This patient is new to me today: No - Critical Care Critical Care patient: Yes Total Critical Care Time (in minutes): 40 Critical Care Statement: The care of this patient involved high complexity decision making to prevent further life threatening deterioration of the patient 's condition and/or to evalute & treat vital organ system(s) failure or risk of failure.
--- NOTE | 2016-04-30 12:32 | PN ---
Progress Note (short form) - Note Progress Note: Renal Follow up for KARLOS on CKD Pt seen and examined in the ICU awake and alert on Venti mask no acute complaints no chest pain, fever, chills good urine output Vital Signs Temperature 98 F 04/30/16 10:00 Pulse Rate 86 04/30/16 10:00 Respiratory Rate 24 04/30/16 10:00 Blood Pressure 125/55 04/30/16 10:00 O2 Sat by Pulse Oximetry (%) 100 04/30/16 08:00 Intake & Output 04/27/16 04/28/16 04/29/16 04/30/16 23:59 23:59 23:59 23:59 Intake Total 3040 417 5590 50 Output Total 490 541 6783 900 Balance 790 -40 0 -850 Weight 227 lb 4.8 oz 227 lb 224 lb 225 lb 6.4 oz Gen: NAD on Ventimask HEENT: NC/AT, No JVD, Neck Supple CVS: RRR, No M/R Lungs: Dec BS at lung bases Abd: soft Obese, NT/ND Ext: Trace edema in LE, 1+ edema in the sacrum : Clifford in place, no bladder distension CBC, BMP 04/30/16 05:00 04/30/16 05:00 Current Medications Acetaminophen/Codeine Phosphate (Tylenol # 3 -) 1 tab PO Q6H PRN PRN Reason: PAIN Albuterol Sulfate (Ventolin 0.083% Nebulizer Soln -) 1 amp NEB Q4H PRN PRN Reason: SHORT OF BREATH/WHEEZING Last Admin: 04/30/16 02:14 Dose: 1 amp Albuterol/Ipratropium (Duoneb -) 1 amp NEB TIDR [facility] Last Admin: 04/30/16 06:02 Dose: 1 amp Amlodipine Besylate (Norvasc -) 10 mg PO DAILY [facility] Last Admin: 04/30/16 09:29 Dose: 10 mg Aspirin (Ecotrin -) 81 mg PO DAILY [facility] Last Admin: 04/30/16 09:28 Dose: 81 mg Docusate Sodium (Colace -) 100 mg PO BID [facility] Last Admin: 04/30/16 09:25 Dose: Not Given Duloxetine HCl (Cymbalta -) 60 mg PO DAILY [facility] Last Admin: 04/30/16 09:26 Dose: 60 mg Epoetin Keith (Procrit -) 10,000 unit SQ MOWEFR@1000 [facility] Last Admin: 04/28/16 12:29 Dose: Not Given Ferrous Sulfate (Feosol -) 325 mg PO BIDWM [facility] Last Admin: 04/30/16 09:00 Dose: 325 mg Guaifenesin (Mucinex -) 600 mg PO BID [facility] Last Admin: 04/30/16 09:29 Dose: 600 mg Heparin Sodium (Porcine) (Heparin -) 5,000 unit SQ BID [facility] Last Admin: 04/30/16 09:28 Dose: Not Given Potassium Phosphate 30 mm/ (Dextrose) 260 mls @ 43.333 mls/hr IVPB ONCE ONE Stop: 04/30/16 16:13 Mirtazapine (Remeron -) 7.5 mg PO HS [facility] Last Admin: 04/29/16 22:14 Dose: 7.5 mg Nystatin (Nystop Powder -) 1 applic TP DAILY [facility] Last Admin: 04/30/16 09:30 Dose: 1 applic Pantoprazole Sodium (Protonix -) 40 mg PO DAILY [facility] Last Admin: 04/30/16 09:30 Dose: 40 mg Polyethylene Glycol (Miralax (For Daily Use) -) 17 gm PO DAILY [facility] Last Admin: 04/30/16 09:29 Dose: Not Given Prednisone (Deltasone -) 30 mg PO DAILY [facility] Last Admin: 04/30/16 09:26 Dose: 30 mg Pregabalin (Lyrica -) 25 mg PO DAILY [facility] Last Admin: 04/30/16 09:29 Dose: 25 mg Fluticasone/Salmeterol (Advair 100mcg/50mcg -) 1 puff IH BID [facility] Last Admin: 04/30/16 09:24 Dose: 1 puff Senna (Senna -) 1 tab PO DAILY [facility] Last Admin: 04/30/16 09:30 Dose: Not Given Sodium Chloride ([place] Nasal [place] -) 2 spray NS Q12H PRN PRN Reason: NASAL CONGESTION Tamsulosin HCl (Flomax -) 0.4 mg PO DAILY@0830 [facility] Last Admin: 04/30/16 09:23 Dose: 0.4 mg Torsemide (Demadex -) 40 mg PO DAILY [facility] Last Admin: 04/30/16 09:28 Dose: 40 mg A/P 75 year old Gentleman with PMhx of CKD (Hx of KARLOS requiring dialysis), Hypertension, COPD on O2, BPH, Gout, MRSA Bactermia from catheter site infection , CHF presented with SOB and cough and found to have acute on chronic anemia and KARLOS with BUN/Cr of 41/2.3. #Acute on Chronic Renal Insufficiency in setting of acute anemia/PNA and CHF Renal function improved and pt with good urine output continue Torsemdie trend BUN/cr and electrolytes avoids nsaids, contrast #CHF/COPD/PNA O2 ok on Ventimask, titrate as per ICU continue Torsemide 40mg Daily Cardiology following taper steroids #Acute On Chronic Anemia hgb with slight downtrend check stool occult blood Hgb stable since transfusion Continue Epogen TIW Transfuse as per ICU protocol #MRSA Bactermia from CVC related infection Continue Vanco dosed by levels as per RENUKA Johnson DO
--- NOTE | 2016-04-30 13:09 | PN ---
Progress Note, Physician History of Present Illness: seen and examined today in nad. no overnight events. no new complaints. states that he is overall feeling better. - Current Medication List Current Medications: Active Medications Acetaminophen/Codeine Phosphate (Tylenol # 3 -) 1 tab PO Q6H PRN PRN Reason: PAIN Albuterol Sulfate (Ventolin 0.083% Nebulizer Soln -) 1 amp NEB Q4H PRN PRN Reason: SHORT OF BREATH/WHEEZING Last Admin: 04/30/16 02:14 Dose: 1 amp Albuterol/Ipratropium (Duoneb -) 1 amp NEB TIDR REPLACED BY [facility] Last Admin: 04/30/16 06:02 Dose: 1 amp Amlodipine Besylate (Norvasc -) 10 mg PO DAILY [facility] Last Admin: 04/30/16 09:29 Dose: 10 mg Aspirin (Ecotrin -) 81 mg PO DAILY [facility] Last Admin: 04/30/16 09:28 Dose: 81 mg Docusate Sodium (Colace -) 100 mg PO BID [facility] Last Admin: 04/30/16 09:25 Dose: Not Given Duloxetine HCl (Cymbalta -) 60 mg PO DAILY [facility] Last Admin: 04/30/16 09:26 Dose: 60 mg Epoetin [place] (Procrit -) 10,000 unit SQ MOWEFR@1000 [facility]PL[facility]ED [facility] Last Admin: 04/28/16 12:29 Dose: Not Given Ferrous Sulfate (Feosol -) 325 mg PO BIDWM REPLACED BY [facility] Last Admin: 04/30/16 09:00 Dose: 325 mg Guaifenesin (Mucinex -) 600 mg PO BID [facility] Last Admin: 04/30/16 09:29 Dose: 600 mg Heparin Sodium (Porcine) (Heparin -) 5,000 unit SQ BID [facility] Last Admin: 04/30/16 09:28 Dose: Not Given Potassium Phosphate 30 mm/ (Dextrose) 260 mls @ 43.333 mls/hr IVPB ONCE ONE Stop: 04/30/16 16:13 Mirtazapine (Remeron -) 7.5 mg PO HS [facility]PL[facility] Last Admin: 04/29/16 22:14 Dose: 7.5 mg Nystatin (Nystop Powder -) 1 applic TP DAILY [facility] Last Admin: 04/30/16 09:30 Dose: 1 applic Pantoprazole Sodium (Protonix -) 40 mg PO DAILY [facility] Last Admin: 04/30/16 09:30 Dose: 40 mg Polyethylene Glycol (Miralax (For Daily Use) -) 17 gm PO DAILY [facility] Last Admin: 04/30/16 09:29 Dose: Not Given Prednisone (Deltasone -) 30 mg PO DAILY [facility] Last Admin: 04/30/16 09:26 Dose: 30 mg Pregabalin (Lyrica -) 25 mg PO DAILY [facility] Last Admin: 04/30/16 09:29 Dose: 25 mg Fluticasone/Salmeterol (Advair 100mcg/50mcg -) 1 puff IH BID [facility]PL[facility]ED BY [facility] Last Admin: 04/30/16 09:24 Dose: 1 puff Senna (Senna -) 1 tab PO DAILY [facility] Last Admin: 04/30/16 09:30 Dose: Not Given Sodium Chloride ([place] Nasal [place] -) 2 spray NS Q12H PRN PRN Reason: NASAL CONGESTION Tamsulosin HCl (Flomax -) 0.4 mg PO DAILY@0830 [facility] Last Admin: 04/30/16 09:23 Dose: 0.4 mg Torsemide (Demadex -) 40 mg PO DAILY [facility] Last Admin: 04/30/16 09:28 Dose: 40 mg - Objective Vital Signs: Vital Signs Temperature 98 F 04/30/16 10:00 Pulse Rate 86 04/30/16 10:00 Respiratory Rate 24 04/30/16 10:00 Blood Pressure 125/55 04/30/16 10:00 O2 Sat by Pulse Oximetry (%) 100 04/30/16 08:00 Constitutional: Yes: No Distress, Calm, Obese Eyes: Yes: WNL, Conjunctiva Clear, EOM Intact, PERRL HENT: Yes: WNL, Atraumatic, Normocephalic Neck: Yes: WNL, Supple, Trachea Midline Cardiovascular: Yes: Regular Rate and Rhythm, S1, S2. No: Bradycardia, Tachycardia, Pulse Irregular, Bruit, JVD, Gallop, Murmur, Rub, S3, S4, Varicosities Respiratory: Yes: Regular, Diminished, On Venti-Mask, Rhonchi. No: Rales, Wheezes Gastrointestinal: Yes: WNL, Normal Bowel Sounds, Soft. No: Distention, Tenderness Musculoskeletal: Yes: Muscle Weakness Edema: Yes Edema: LLE: Trace, RLE: Trace Peripheral Pulses WNL: Yes Peripheral Pulses: Left Doralis Pedis: 2+, Right Dorsalis Pedis: 2+ Integumentary: Yes: Venous Stasis Changes Neurological: Yes: Alert, Oriented Psychiatric: Yes: Alert, Oriented Labs: CBC, BMP 04/30/16 05:00 04/30/16 05:00 - ....Imaging Chest X-ray: Report Reviewed, Image Reviewed EKG: Report Reviewed, Image Reviewed Other: Report Reviewed, Image Reviewed (tele-nsr, sinus tach, short episodes psvt, pvcs) Problem List - Problems (1) Acute exacerbation of chronic obstructive pulmonary disease (COPD) Code(s): J44.1 - CHRONIC OBSTRUCTIVE PULMONARY DISEASE W (ACUTE) EXACERBATION (2) Anemia Code(s): D64.9 - ANEMIA, UNSPECIFIED (3) CAD (coronary artery disease) Code(s): I25.10 - ATHSCL HEART DISEASE OF [place] CORONARY ARTERY W/O ANG PCTRS (4) Chronic kidney disease (CKD) stage G3a/A2, moderately decreased glomerular filtration rate (GFR) between 45-59 mL/min/1.73 square meter and albuminuria creatinine ratio between 30-299 mg/g Code(s): N18.3 - CHRONIC KIDNEY DISEASE, STAGE 3 (MODERATE) (5) Pneumonia Code(s): J18.9 - PNEUMONIA, UNSPECIFIED ORGANISM Qualifiers: Pneumonia type: due to unspecified organism Laterality: left Lung location: lower lobe of lung Qualified Code(s): J18.9 - Pneumonia, unspecified organism (6) Acute and chronic respiratory failure ([id number]) Code(s): J96.20 - ACUTE AND CHR RESP FAILURE, UNSP W HYPOXIA OR HYPERCAPNIA Qualifiers: Respiratory failure complication: hypoxia and hypercapnia Qualified Code(s): J96.21 - Acute and chronic respiratory failure with hypoxia (7) Acute on chronic diastolic (congestive) heart failure Code(s): I50.33 - ACUTE ON CHRONIC DIASTOLIC (CONGESTIVE) HEART FAILURE (8) Aortic aneurysm, intrathoracic Code(s): I71.2 - THORACIC AORTIC ANEURYSM, WITHOUT RUPTURE (9) Arteriosclerotic heart disease (ASHD) Code(s): I25.10 - ATHSCL HEART DISEASE OF [place] CORONARY ARTERY W/O ANG PCTRS (10) History of coronary artery stent placement Code(s): Z95.5 - PRESENCE OF CORONARY ANGIOPLASTY IMPLANT AND GRAFT (11) Hyperlipidemia Code(s): E78.5 - HYPERLIPIDEMIA, UNSPECIFIED (12) Hypertension Code(s): I10 - ESSENTIAL (PRIMARY) HYPERTENSION (13) Obstructive sleep apnea Code(s): G47.33 - OBSTRUCTIVE SLEEP APNEA (ADULT) (PEDIATRIC) (14) Diabetes Code(s): E11.9 - TYPE 2 DIABETES MELLITUS WITHOUT COMPLICATIONS Qualifiers: Diabetes mellitus type: type 2 Diabetes mellitus complication status: with kidney complications Diabetes mellitus complication detail: with chronic kidney disease Assessment/Plan IMP: SOB Acute on Chronic COPD Recent Sepsis, gram + Bacteremia, infected HD catheter- removed Recent TARYN on CKD CAD h/o stents REC: SOB-Resp failure: required intubation and s/p thoracentesis for pleural effusions during last admission -Chronic diastolic CHF, currently at baseline volume status, with good urine output and downtrending creatinine -Cont Torsemide 40mg po daily -monitor strict I/Os and daily weights CAD: s/p PCI with stents this past year -thrombocytopenia on previous admission resolved -cont ASA 81mg daily -not on bblocker due to severe COPD -short runs PSVT and NSVT, keep K and Mg repleted. -Echo last admission normal LV function
--- NOTE | 2016-04-30 17:50 | PN ---
Teaching Attending Note Name of Resident: Jenelle Nava ATTENDING PHYSICIAN STATEMENT I saw and evaluated the patient. I reviewed the resident's note and discussed the case with the resident. I agree with the resident's findings and plan as documented. SUBJECTIVE: Patient is feeling the same with no acute changes. OBJECTIVE: Vital Signs Temperature 98 F 04/30/16 10:00 Pulse Rate 102 H 04/30/16 13:50 Respiratory Rate 24 04/30/16 10:00 Blood Pressure 125/55 04/30/16 10:00 O2 Sat by Pulse Oximetry (%) 98 04/30/16 13:50 GENERAL: The patient is awake, alert, and fully oriented, on no acute distress. Morbid obesity. HEAD: Normal with no signs of trauma. EYES: PERRL, extraocular movements intact, sclera anicteric, conjunctiva clear. ENT: Ears normal, oropharynx clear without exudates, moist mucous membranes. NECK: Trachea midline, full range of motion, supple. LUNGS: Breath sounds equal, rhonchi b/l , no accessory muscle use, on VM. HEART: Regular rate and rhythm, S1, S2 positive ,no rub or gallop. ABDOMEN: Soft, Nt,ND, normoactive bowel sounds, no guarding, no rebound, no hepatosplenomegaly, no masses appreciated EXTREMITIES: 2+ pulses, warm, well-perfused, no edema. NEUROLOGICAL: Cranial nerves II through XII grossly intact. Normal speech, gait not observed. PSYCH: Normal mood, normal affect. SKIN: Warm, dry, normal turgor, no rashes or lesions noted CBCD WBC 10.4 K/mm3 (4.0-10.0) H 04/30/16 05:00 RBC 2.81 M/mm3 (4.00-5.60) L 04/30/16 05:00 Hgb 7.7 GM/dL (11.7-16.9) L 04/30/16 05:00 Hct 24.0 % (35.4-49) L 04/30/16 05:00 MCV 85.2 fl (80-96) 04/30/16 05:00 MCHC 32.0 g/dl (32.0-35.9) 04/30/16 05:00 RDW 17.8 % (11.9-15.9) H 04/30/16 05:00 Plt Count 306 K/MM3 (134-434) 04/30/16 05:00 MPV 7.2 fl (7.5-11.1) L 04/30/16 05:00 CMP Sodium 142 mmol/L (136-145) 04/30/16 05:00 Potassium 3.8 mmol/L (3.5-5.1) 04/30/16 05:00 Chloride 99 mmol/L (98-107) 04/30/16 05:00 Carbon Dioxide 36 mmol/L (21-32) H 04/30/16 05:00 Anion Gap 7 (8-16) L 04/30/16 05:00 BUN 70 mg/dL (7-18) H 04/30/16 05:00 Creatinine 1.8 mg/dL (0.7-1.3) H 04/30/16 05:00 Creat Clearance w eGFR 37.17 (>60) 04/30/16 05:00 Random Glucose 206 mg/dL (74-106) H D 04/30/16 05:00 Calcium 7.5 mg/dL (8.5-10.1) L 04/30/16 05:00 Total Bilirubin 0.2 mg/dL (0.2-1.0) D 04/30/16 05:00 AST 13 U/L (15-37) L 04/30/16 05:00 ALT 10 U/L (12-78) L D 04/30/16 05:00 Alkaline Phosphatase 98 U/L (45-117) 04/30/16 05:00 Total Protein 4.8 g/dl (6.4-8.2) L 04/30/16 05:00 Albumin 2.2 g/dl (3.4-5.0) L 04/30/16 05:00 CARDIAC ENZYMES Creatine Kinase 14 IU/L (39-308) L 04/26/16 05:30 Troponin I < 0.02 ng/ml (0.00-0.05) 04/26/16 05:30 Current Medications Generic Name Dose Route Start Last Admin Trade Name Freq PRN Reason Stop Dose Admin Acetaminophen/Codeine Phosphate 1 tab 04/27/16 19:47 Tylenol # 3 - PO Q6H PRN PAIN Albuterol Sulfate 1 amp 04/27/16 19:47 04/30/16 02:14 Ventolin 0.083% Nebulizer Soln - NEB 1 amp Q4H PRN Administration SHORT OF BREATH/WHEEZING Albuterol/Ipratropium 1 amp 04/27/16 22:00 04/30/16 13:50 Duoneb - NEB 1 amp TIDR [facility] Administration Amlodipine Besylate 10 mg 04/28/16 10:00 04/30/16 09:29 Norvasc - PO 10 mg DAILY [facility] Administration Aspirin 81 mg 04/28/16 10:00 04/30/16 09:28 Ecotrin - PO 81 mg DAILY [facility] Administration Docusate Sodium 100 mg 04/27/16 22:00 04/30/16 09:25 Colace - PO Not Given BID L[facility]LEE Duloxetine HCl 60 mg 04/28/16 10:00 04/30/16 09:26 Cymbalta - PO 60 mg DAILY [facility] Administration Epoetin Keith 10,000 unit 04/28/16 10:00 04/28/16 12:29 Procrit - SQ Not Given MOWEFR@1000 [facility] Ferrous Sulfate 325 mg 04/28/16 08:00 04/30/16 09:00 Feosol - PO 325 mg BIDWM [facility] Administration Guaifenesin 600 mg 04/27/16 22:00 04/30/16 09:29 Mucinex - PO 600 mg BID [facility] Administration Heparin Sodium (Porcine) 5,000 unit 04/27/16 22:00 04/30/16 09:28 Heparin - SQ Not Given BID L[facility]LEE Mirtazapine 7.5 mg 04/27/16 22:00 04/29/16 22:14 Remeron - PO 7.5 mg HS [facility] Administration Nystatin 1 applic 04/28/16 10:00 04/30/16 09:30 Nystop Powder - TP 1 applic DAILY [facility] Administration Pantoprazole Sodium 40 mg 04/28/16 10:00 04/30/16 09:30 Protonix - PO 40 mg DAILY [facility] Administration Polyethylene Glycol 17 gm 04/28/16 10:00 04/30/16 09:29 Miralax (For Daily Use) - PO Not Given DAILY [facility] Prednisone 30 mg 04/29/16 10:00 04/30/16 09:26 Deltasone - PO 30 mg DAILY [facility] Administration Pregabalin 25 mg 04/28/16 10:00 04/30/16 09:29 Lyrica - PO 25 mg DAILY [facility] Administration Fluticasone/Salmeterol 1 puff 04/27/16 22:00 04/30/16 09:24 Advair 100mcg/50mcg - IH 1 puff BID [facility] Administration Senna 1 tab 04/28/16 10:00 04/30/16 09:30 Senna - PO Not Given DAILY [facility] Sodium Chloride 2 spray 04/27/16 19:47 [place] Nasal [place] - NS Q12H PRN NASAL CONGESTION Tamsulosin HCl 0.4 mg 04/29/16 09:00 04/30/16 09:23 Flomax - PO 0.4 mg DAILY@0830 [facility] Administration Torsemide 40 mg 04/28/16 10:00 04/30/16 09:28 Demadex - PO 40 mg DAILY [facility] Administration ASSESSMENT AND PLAN: This is a 75-year-old man with a history of stage 4 CKD, HTN, CAD, PVD, chronic diastolic heart failure, COPD, obstructive sleep apnea, obesity-hypoventilation syndrome, lymphedema who was here 02/17-04/13 with severe sepsis, MRSA bacteremia , acute hypercapnic respiratory failure, acute renal failure and acute diastolic heart failure, was sent in from [place] yesterday because of shortness of breath, cough and hypoxia. # CAD/chronic CHF cardiology on the case, not on b-regine due to severe COPD s/p PCI with stents this past year, cont.ASA 81mg daily, Cont Torsemide 40mg po daily # Acute over chronic kidney injury on stage 4 CKD on Torsemide Improving creatinine 1.8 today with increasing BUN 70, nephrology appreciated continue to monitor strict I/Os and daily weights # Anemia secondary to chronic illness, CKD, s/p 1 u PRBC # Hx of Chronic hypoxic and hypercapnic respiratory failure on VM continue , Bipap if needed # Healthcare-associated pneumonia with recent MRSA bacteremia completed IV antibiotic; on Oxygen, DuoNeb , ID consult , s/p UTI completed IV antibiotics. continues on VM becomes shortness of breath. # Hypertension continue home meds #Thrombocytopenia on previous admission resolved # Obstructive sleep apnea: on oxygen, Bipap # Having short runs PSVT and NSVT, keep K and Mg repleted. monitor DVT PPX; Heparin 5000 u SQ Q8h patient can tx to tele.
[2016-04-30] MEDS: MIRTAZAPINE 15 MG TABLET (FP) PO SCH (21:30)
[2016-05-01] MEDS: ALBUTEROL SO4 2.5/IPRATROPIUM 0.5 INH SOL 3 ML VIAL.NEB. NEB SCH ×2 (05:44→13:50)
[2016-05-01 06:30] LABS: MCH 26.7 pg (25.7-33.7); MCHC 31.2 g/dl (32.0-35.9); MEAN CELL VOLUME 85.4 fl (80-96); MEAN PLT VOLUME 7.2 fl (7.5-11.1); PLATELET COUNT 346 K/MM3 (134-434); RDW 18.5 % (11.9-15.9); WHITE BLOOD COUNT 13.2 K/mm3 (4.0-10.0)
[2016-05-01 06:52] LABS: ALBUMIN 2.4 g/dl (3.4-5.0); ANION GAP 7 (8-16); CALCIUM 7.8 mg/dL (8.5-10.1); CO2 39 mmol/L (21-32); MAGNESIUM 2.3 mg/dL (1.8-2.4)
[2016-05-01 06:58] LABS: ALK PHOS 90 U/L (45-117); BILIRUBIN,TOTAL 0.3 mg/dL (0.2-1.0); CREATININE 1.8 mg/dL (0.7-1.3); GLUCOSE,RANDOM 165 mg/dL (74-106); PHOSPHOROUS 3.7 mg/dL (2.5-4.9); SGOT/AST 13 U/L (15-37); SGPT/ALT < 6 U/L (12-78); TOT PROT 5.1 g/dl (6.4-8.2)
[2016-05-01] MEDS: FERROUS SO4 325 MG TABLET (FP) PO SCH (08:03)
[2016-05-01] MEDS: TAMSULOSIN HCL 0.4 MG CAP.ER.24H (FP) PO SCH (08:03)
[2016-05-01 08:22] VITALS: TEMP 97.8
[2016-05-01 08:58] LABS: METAMYELOCYTE 1 % (0-2)
[2016-05-01] MEDS: DULoxetine HCL 30 MG CAPSULE.DR (FP) PO SCH (09:46)
[2016-05-01] MEDS: predniSONE 10 MG TABLET (UD) PO SCH (09:46)
[2016-05-01] MEDS: SENNOSIDES 8.6MG TABLET (FP) PO SCH (09:47)
[2016-05-01] MEDS: PREGABALIN 25 MG CAPSULE PO SCH (09:47)
[2016-05-01] MEDS: ASPIRIN COATED 81 MG TABLET.EC PO SCH (09:47)
[2016-05-01] MEDS: amLODIPine BESYLATE 10 MG TABLET (FP) PO SCH (09:47)
[2016-05-01] MEDS: guaiFENesin 600 MG TABLET.ER (FP) PO SCH (09:47)
[2016-05-01] MEDS: PANTOPRAZOLE 40 MG TABLET (FP) PO SCH (09:47)
[2016-05-01] MEDS: TORSEMIDE 20 MG TABLET (FP) PO SCH (09:47)
[2016-05-01] MEDS: DOCUSATE SODIUM 100 MG CAPSULE (FP) PO SCH (09:48)
[2016-05-01] MEDS: FLUTICASONE/SALMETEROL 100 MCG/50 MCG DISKUS IH SCH (09:48)
[2016-05-01] MEDS: HEPARIN NA (PORCINE) 5,000 UNITS/ML 1ML VIAL SQ SCH (09:51)
[2016-05-01] MEDS: POLYETHYLENE GLYCOL 3350 119 GM BTL PO SCH (09:53)
[2016-05-01] MEDS: NYSTATIN POWDER 100,000 UNITS/GM - 15 GM TOPICAL POWDER TP SCH (09:53)
--- NOTE | 2016-05-01 10:39 | PN ---
Progress Note, Physician Chief Complaint: Patient remains in the ICU. Ventimask in place. Awake, alert. Maintains good urine output. - Current Medication List Current Medications: Active Medications Acetaminophen/Codeine Phosphate (Tylenol # 3 -) 1 tab PO Q6H PRN PRN Reason: PAIN Albuterol Sulfate (Ventolin 0.083% Nebulizer Soln -) 1 amp NEB Q4H PRN PRN Reason: SHORT OF BREATH/WHEEZING Last Admin: 04/30/16 02:14 Dose: 1 amp Albuterol/Ipratropium (Duoneb -) 1 amp NEB TIDR [facility] Last Admin: 05/01/16 05:44 Dose: 1 amp Amlodipine Besylate (Norvasc -) 10 mg PO DAILY [facility] Last Admin: 05/01/16 09:47 Dose: 10 mg Aspirin (Ecotrin -) 81 mg PO DAILY [facility] Last Admin: 05/01/16 09:47 Dose: 81 mg Docusate Sodium (Colace -) 100 mg PO BID [facility] Last Admin: 05/01/16 09:48 Dose: Not Given Duloxetine HCl (Cymbalta -) 60 mg PO DAILY [facility] Last Admin: 05/01/16 09:46 Dose: 60 mg Epoetin Keith (Procrit -) 10,000 unit SQ MOWEFR@1000 [facility] Last Admin: 04/28/16 12:29 Dose: Not Given Ferrous Sulfate (Feosol -) 325 mg PO BIDWM [facility] Last Admin: 05/01/16 08:03 Dose: 325 mg Guaifenesin (Mucinex -) 600 mg PO BID [facility] Last Admin: 05/01/16 09:47 Dose: 600 mg Heparin Sodium (Porcine) (Heparin -) 5,000 unit SQ BID [facility] Last Admin: 05/01/16 09:51 Dose: 5,000 unit Mirtazapine (Remeron -) 7.5 mg PO HS [facility] Last Admin: 04/30/16 21:30 Dose: 7.5 mg Nystatin (Nystop Powder -) 1 applic TP DAILY [facility] Last Admin: 05/01/16 09:53 Dose: 1 applic Pantoprazole Sodium (Protonix -) 40 mg PO DAILY [facility] Last Admin: 05/01/16 09:47 Dose: 40 mg Polyethylene Glycol (Miralax (For Daily Use) -) 17 gm PO DAILY [facility] Last Admin: 05/01/16 09:53 Dose: Not Given Prednisone (Deltasone -) 30 mg PO DAILY [facility] Last Admin: 05/01/16 09:46 Dose: 30 mg Pregabalin (Lyrica -) 25 mg PO DAILY [facility] Last Admin: 05/01/16 09:47 Dose: 25 mg Fluticasone/Salmeterol (Advair 100mcg/50mcg -) 1 puff IH BID [facility] Last Admin: 05/01/16 09:48 Dose: 1 puff Senna (Senna -) 1 tab PO DAILY [facility] Last Admin: 05/01/16 09:47 Dose: 1 tab Sodium Chloride ([place] -) 2 spray NS Q12H PRN PRN Reason: NASAL CONGESTION Tamsulosin HCl (Flomax -) 0.4 mg PO DAILY@0830 [facility] Last Admin: 05/01/16 08:03 Dose: 0.4 mg Torsemide (Demadex -) 40 mg PO DAILY [facility] Last Admin: 05/01/16 09:47 Dose: 40 mg - Objective Vital Signs: Vital Signs Temperature 97.8 F 05/01/16 08:00 Pulse Rate 92 H 05/01/16 09:48 Respiratory Rate 25 H 05/01/16 08:00 Blood Pressure 133/75 05/01/16 08:00 O2 Sat by Pulse Oximetry (%) 98 05/01/16 09:48 Constitutional: Yes: Well Nourished, Anxious, Mild Distress HENT: Yes: Atraumatic Neck: Yes: Supple Cardiovascular: Yes: Regular Rate and Rhythm, S1, S2 Respiratory: Yes: Diminished, Dullness, Hyperresonant, On Venti-Mask Gastrointestinal: Yes: Normal Bowel Sounds, Soft, Abdomen, Obese Labs: CBC, BMP 05/01/16 05:00 05/01/16 05:00 Problem List - Problems (1) Acute exacerbation of chronic obstructive pulmonary disease (COPD) Code(s): J44.1 - CHRONIC OBSTRUCTIVE PULMONARY DISEASE W (ACUTE) EXACERBATION (2) Anemia Code(s): D64.9 - ANEMIA, UNSPECIFIED (3) CAD (coronary artery disease) Code(s): I25.10 - ATHSCL HEART DISEASE OF [place] CORONARY ARTERY W/O ANG PCTRS (4) Chronic kidney disease (CKD) stage G3a/A2, moderately decreased glomerular filtration rate (GFR) between 45-59 mL/min/1.73 square meter and albuminuria creatinine ratio between 30-299 mg/g Code(s): N18.3 - CHRONIC KIDNEY DISEASE, STAGE 3 (MODERATE) (5) Chronic renal insufficiency Code(s): N18.9 - CHRONIC KIDNEY DISEASE, UNSPECIFIED (6) Pneumonia Code(s): J18.9 - PNEUMONIA, UNSPECIFIED ORGANISM Qualifiers: Pneumonia type: due to unspecified organism Laterality: left Lung location: lower lobe of lung Qualified Code(s): J18.9 - Pneumonia, unspecified organism (7) Stage 1 skin ulcer of sacral region Code(s): L89.151 - PRESSURE ULCER OF [place] REG[place], STAGE 1 (8) Acute kidney failure Code(s): N17.9 - ACUTE KIDNEY FAILURE, UNSPECIFIED Qualifiers: Acute renal failure type: unspecified Qualified Code(s): N17.9 - Acute kidney failure, unspecified (9) Anxiety and depression Code(s): F41.9 - ANXIETY DISORDER, UNSPECIFIED F32.9 - MAJOR DEPRESSIVE DISORDER, SINGLE EPISODE, UNSPECIFIED (10) Hypertension Code(s): I10 - ESSENTIAL (PRIMARY) HYPERTENSION (11) Respiratory distress Code(s): R06.00 - DYSPNEA, UNSPECIFIED (12) Sleep apnea Code(s): G47.30 - SLEEP APNEA, UNSPECIFIED (13) Tachypnea Code(s): R06.82 - TACHYPNEA, NOT ELSEWHERE CLASSIFIED (14) Diabetes Code(s): E11.9 - TYPE 2 DIABETES MELLITUS WITHOUT COMPLICATIONS Qualifiers: Diabetes mellitus type: type 2 Diabetes mellitus complication status: with kidney complications Diabetes mellitus complication detail: with chronic kidney disease (15) Diastolic CHF Code(s): I50.30 - UNSPECIFIED DIASTOLIC (CONGESTIVE) HEART FAILURE Assessment/Plan Patient maintains a component of Acute azotemia, hemodynamically mediated, superimposed on CKD. Some degree of azotemia is steroid dependent. Noted rising WBC. ? Steroid dependent. Will continue to follow the renal functions with you. Will need close monitoring of the azotemia. Shi Hernandez MD
--- NOTE | 2016-05-01 12:49 | PN ---
Teaching Attending Note Name of Resident: Lambert Ventura ATTENDING PHYSICIAN STATEMENT I saw and evaluated the patient. I reviewed the resident's note and discussed the case with the resident. I agree with the resident's findings and plan as documented. SUBJECTIVE: Patient seen and examined in the ICU. Remains on 50% ventimask (reports that he was on 50% at SNF ?) Breathing feels about the same. (+)nonproductive cough. No chest pain. Intake & Output 04/28/16 04/29/16 04/30/16 05/01/16 23:59 23:59 23:59 23:59 Intake Total 760 2200 1450 500 Output Total 800 2200 1900 400 Balance -40 0 -450 100 Weight 227 lb 224 lb 225 lb 6.4 oz 230 lb 8 oz Last Vital Signs Temp Pulse Resp BP Pulse Ox 97.8 F 86 25 H 137/66 98 05/01/16 08:00 05/01/16 10:00 05/01/16 10:00 05/01/16 10:00 05/01/16 09:48 Active Medications Acetaminophen/Codeine Phosphate (Tylenol # 3 -) 1 tab PO Q6H PRN PRN Reason: PAIN Albuterol Sulfate (Ventolin 0.083% Nebulizer Soln -) 1 amp NEB Q4H PRN PRN Reason: SHORT OF BREATH/WHEEZING Last Admin: 04/30/16 02:14 Dose: 1 amp Albuterol/Ipratropium (Duoneb -) 1 amp NEB TIDR [facility] Last Admin: 05/01/16 05:44 Dose: 1 amp Amlodipine Besylate (Norvasc -) 10 mg PO DAILY [facility] Last Admin: 05/01/16 09:47 Dose: 10 mg Aspirin (Ecotrin -) 81 mg PO DAILY [facility] Last Admin: 05/01/16 09:47 Dose: 81 mg Docusate Sodium (Colace -) 100 mg PO BID [facility] Last Admin: 05/01/16 09:48 Dose: Not Given Duloxetine HCl (Cymbalta -) 60 mg PO DAILY [facility] Last Admin: 05/01/16 09:46 Dose: 60 mg Epoetin [place] (Procrit -) 10,000 unit SQ MOWEFR@1000 [facility] Last Admin: 04/28/16 12:29 Dose: Not Given Ferrous Sulfate (Feosol -) 325 mg PO BIDWM [facility] Last Admin: 05/01/16 08:03 Dose: 325 mg Guaifenesin (Mucinex -) 600 mg PO BID [facility] Last Admin: 05/01/16 09:47 Dose: 600 mg Heparin Sodium (Porcine) (Heparin -) 5,000 unit SQ BID [facility] Last Admin: 05/01/16 09:51 Dose: 5,000 unit Mirtazapine (Remeron -) 7.5 mg PO HS [facility] Last Admin: 04/30/16 21:30 Dose: 7.5 mg Nystatin (Nystop Powder -) 1 applic TP DAILY [facility] Last Admin: 05/01/16 09:53 Dose: 1 applic Pantoprazole Sodium (Protonix -) 40 mg PO DAILY [facility] Last Admin: 05/01/16 09:47 Dose: 40 mg Polyethylene Glycol (Miralax (For Daily Use) -) 17 gm PO DAILY [facility] Last Admin: 05/01/16 09:53 Dose: Not Given Prednisone (Deltasone -) 30 mg PO DAILY [facility] Last Admin: 05/01/16 09:46 Dose: 30 mg Pregabalin (Lyrica -) 25 mg PO DAILY [facility] Last Admin: 05/01/16 09:47 Dose: 25 mg Fluticasone/Salmeterol (Advair 100mcg/50mcg -) 1 puff IH BID [facility] Last Admin: 05/01/16 09:48 Dose: 1 puff Senna (Senna -) 1 tab PO DAILY [facility] Last Admin: 05/01/16 09:47 Dose: 1 tab Sodium Chloride ([place] Nasal [place] -) 2 spray NS Q12H PRN PRN Reason: NASAL CONGESTION Tamsulosin HCl (Flomax -) 0.4 mg PO DAILY@0830 [facility] Last Admin: 05/01/16 08:03 Dose: 0.4 mg Torsemide (Demadex -) 40 mg PO DAILY [facility] Last Admin: 05/01/16 09:47 Dose: 40 mg Gen: less tachypneic, 50% VM O2 Heart: RRR Lung: few scattered rhonchi, decreased breath sounds at the bases Abd: soft, nontender Ext: (+) edema, chronic changes Laboratory Results - last 24 hr 04/26/16 04/30/16 05/01/16 07:40 15:30 05:00 WBC 13.2 H RBC 3.05 L Hgb 8.1 L Hct 26.1 L MCV 85.4 MCHC 31.2 L RDW 18.5 H Plt Count 346 MPV 7.2 L Neutrophils % 84.0 H Lymphocytes % 7.0 L D Monocytes % 4.0 Basophils % 1.0 Band Neutrophils 1.0 D Metamyelocytes 1 Myelocytes 2 D Differential Comment Manual diff done Basophilic Stippling 2+ Sodium Potassium Chloride Carbon Dioxide Anion Gap BUN Creatinine Creat Clearance w eGFR Random Glucose Calcium Phosphorus Magnesium Total Bilirubin AST ALT Alkaline Phosphatase Total Protein Albumin Stool Occult Blood Negative Blood Type A POSITIVE Antibody Screen Negative Crossmatch See Detail 05/01/16 05:00 WBC RBC Hgb Hct MCV MCHC RDW Plt Count MPV Neutrophils % Lymphocytes % Monocytes % Basophils % Band Neutrophils Metamyelocytes Myelocytes Differential Comment Basophilic Stippling Sodium 143 Potassium 4.5 Chloride 97 L Carbon Dioxide 39 H Anion Gap 7 L BUN 75 H Creatinine 1.8 H Creat Clearance w eGFR 37.17 Random Glucose 165 H Calcium 7.8 L Phosphorus 3.7 D Magnesium 2.3 Total Bilirubin 0.3 D AST 13 L ALT < 6 L D Alkaline Phosphatase 90 Total Protein 5.1 L Albumin 2.4 L Stool Occult Blood Blood Type Antibody Screen Crossmatch A/P UTI Acute on Chronic LV Diastolic Heart Failure Recent MRSA bacteremia CAD Acute on Chronic Renal Failure COPD Anemia - s/p antibiotics - Demadex daily - monitor urine output, creatinine - monitor H/H - Prednisone taper - inhaled bronchodilators - taper Fio2 to keep SpO2 >90% - PO as tolerated - DVT/GI prophylaxis - On D/C should increase Advair to the 250 dose - Floor with pulse oximetry monitoring / (?) Rehab transfer Dr Vasquez
--- NOTE | 2016-05-01 13:33 | PN ---
Progress Note, Physician History of Present Illness: seen and examined today in nad. no overnight events. no new complaints. states that he is feeling better. sob is improving. - Current Medication List Current Medications: Active Medications Acetaminophen/Codeine Phosphate (Tylenol # 3 -) 1 tab PO Q6H PRN PRN Reason: PAIN Albuterol Sulfate (Ventolin 0.083% Nebulizer Soln -) 1 amp NEB Q4H PRN PRN Reason: SHORT OF BREATH/WHEEZING Last Admin: 04/30/16 02:14 Dose: 1 amp Albuterol/Ipratropium (Duoneb -) 1 amp NEB TIDR [facility] Last Admin: 05/01/16 05:44 Dose: 1 amp Amlodipine Besylate (Norvasc -) 10 mg PO DAILY [facility] Last Admin: 05/01/16 09:47 Dose: 10 mg Aspirin (Ecotrin -) 81 mg PO DAILY [facility] Last Admin: 05/01/16 09:47 Dose: 81 mg Docusate Sodium (Colace -) 100 mg PO BID [facility] Last Admin: 05/01/16 09:48 Dose: Not Given Duloxetine HCl (Cymbalta -) 60 mg PO DAILY [facility] Last Admin: 05/01/16 09:46 Dose: 60 mg Epoetin Keith (Procrit -) 10,000 unit SQ MOWEFR@1000 [facility] Last Admin: 04/28/16 12:29 Dose: Not Given Ferrous Sulfate (Feosol -) 325 mg PO BIDWM [facility] Last Admin: 05/01/16 08:03 Dose: 325 mg Guaifenesin (Mucinex -) 600 mg PO BID [facility] Last Admin: 05/01/16 09:47 Dose: 600 mg Heparin Sodium (Porcine) (Heparin -) 5,000 unit SQ BID [facility] Last Admin: 05/01/16 09:51 Dose: 5,000 unit Mirtazapine (Remeron -) 7.5 mg PO HS [facility] Last Admin: 04/30/16 21:30 Dose: 7.5 mg Nystatin (Nystop Powder -) 1 applic TP DAILY [facility] Last Admin: 05/01/16 09:53 Dose: 1 applic Pantoprazole Sodium (Protonix -) 40 mg PO DAILY [facility] Last Admin: 05/01/16 09:47 Dose: 40 mg Polyethylene Glycol (Miralax (For Daily Use) -) 17 gm PO DAILY [facility] Last Admin: 05/01/16 09:53 Dose: Not Given Prednisone (Deltasone -) 30 mg PO DAILY [facility] Last Admin: 05/01/16 09:46 Dose: 30 mg Pregabalin (Lyrica -) 25 mg PO DAILY [facility] Last Admin: 05/01/16 09:47 Dose: 25 mg Fluticasone/Salmeterol (Advair 100mcg/50mcg -) 1 puff IH BID [facility] Last Admin: 05/01/16 09:48 Dose: 1 puff Senna (Senna -) 1 tab PO DAILY [facility] Last Admin: 05/01/16 09:47 Dose: 1 tab Sodium Chloride ([place] Nasal [place] -) 2 spray NS Q12H PRN PRN Reason: NASAL CONGESTION Tamsulosin HCl (Flomax -) 0.4 mg PO DAILY@0830 [facility] Last Admin: 05/01/16 08:03 Dose: 0.4 mg Torsemide (Demadex -) 40 mg PO DAILY [facility] Last Admin: 05/01/16 09:47 Dose: 40 mg - Objective Vital Signs: Vital Signs Temperature 97.8 F 05/01/16 08:00 Pulse Rate 86 05/01/16 10:00 Respiratory Rate 25 H 05/01/16 10:00 Blood Pressure 137/66 05/01/16 10:00 O2 Sat by Pulse Oximetry (%) 98 05/01/16 09:48 Constitutional: Yes: No Distress, Calm, Obese Eyes: Yes: WNL, Conjunctiva Clear, EOM Intact, PERRL HENT: Yes: WNL, Atraumatic, Normocephalic Neck: Yes: WNL, Supple, Trachea Midline Cardiovascular: Yes: Regular Rate and Rhythm, S1, S2. No: Bradycardia, Tachycardia, Pulse Irregular, Bruit, JVD, Gallop, Murmur, Rub, S3, S4, Varicosities Respiratory: Yes: Regular, Diminished, On Venti-Mask. No: Rales, Rhonchi, SOB, Wheezes Gastrointestinal: Yes: WNL, Normal Bowel Sounds, Soft. No: Distention, Tenderness Musculoskeletal: Yes: WNL Edema: Yes Edema: LLE: Trace, RLE: Trace Peripheral Pulses WNL: Yes Peripheral Pulses: Left Doralis Pedis: 2+, Right Dorsalis Pedis: 2+ Integumentary: Yes: Venous Stasis Changes Neurological: Yes: Alert, Oriented Psychiatric: Yes: Alert, Oriented Labs: CBC, BMP 05/01/16 05:00 05/01/16 05:00 - ....Imaging Chest X-ray: Report Reviewed, Image Reviewed EKG: Report Reviewed, Image Reviewed Other: Report Reviewed, Image Reviewed (tele-nsr, sinus tach, frequent apcs, pvcs, psvt) Problem List - Problems (1) Acute exacerbation of chronic obstructive pulmonary disease (COPD) Code(s): J44.1 - CHRONIC OBSTRUCTIVE PULMONARY DISEASE W (ACUTE) EXACERBATION (2) Anemia Code(s): D64.9 - ANEMIA, UNSPECIFIED (3) CAD (coronary artery disease) Code(s): I25.10 - ATHSCL HEART DISEASE OF [place] CORONARY ARTERY W/O ANG PCTRS (4) Chronic kidney disease (CKD) stage G3a/A2, moderately decreased glomerular filtration rate (GFR) between 45-59 mL/min/1.73 square meter and albuminuria creatinine ratio between 30-299 mg/g Code(s): N18.3 - CHRONIC KIDNEY DISEASE, STAGE 3 (MODERATE) (5) Pneumonia Code(s): J18.9 - PNEUMONIA, UNSPECIFIED ORGANISM Qualifiers: Pneumonia type: due to unspecified organism Laterality: left Lung location: lower lobe of lung Qualified Code(s): J18.9 - Pneumonia, unspecified organism (6) Acute and chronic respiratory failure ([id number]) Code(s): J96.20 - ACUTE AND CHR RESP FAILURE, UNSP W HYPOXIA OR HYPERCAPNIA Qualifiers: Respiratory failure complication: hypoxia and hypercapnia Qualified Code(s): J96.21 - Acute and chronic respiratory failure with hypoxia (7) Acute on chronic diastolic (congestive) heart failure Code(s): I50.33 - ACUTE ON CHRONIC DIASTOLIC (CONGESTIVE) HEART FAILURE (8) Aortic aneurysm, intrathoracic Code(s): I71.2 - THORACIC AORTIC ANEURYSM, WITHOUT RUPTURE (9) Arteriosclerotic heart disease (ASHD) Code(s): I25.10 - ATHSCL HEART DISEASE OF [place] CORONARY ARTERY W/O ANG PCTRS (10) History of coronary artery stent placement Code(s): Z95.5 - PRESENCE OF CORONARY ANGIOPLASTY IMPLANT AND GRAFT (11) Hyperlipidemia Code(s): E78.5 - HYPERLIPIDEMIA, UNSPECIFIED (12) Hypertension Code(s): I10 - ESSENTIAL (PRIMARY) HYPERTENSION (13) Obstructive sleep apnea Code(s): G47.33 - OBSTRUCTIVE SLEEP APNEA (ADULT) (PEDIATRIC) (14) Diabetes Code(s): E11.9 - TYPE 2 DIABETES MELLITUS WITHOUT COMPLICATIONS Qualifiers: Diabetes mellitus type: type 2 Diabetes mellitus complication status: with kidney complications Diabetes mellitus complication detail: with chronic kidney disease Assessment/Plan IMP: SOB Acute on Chronic COPD Recent Sepsis, gram + Bacteremia, infected HD catheter- removed Recent TARYN on CKD CAD h/o stents REC: SOB-Resp failure: required intubation and s/p thoracentesis for pleural effusions during last admission -stable -Cont Torsemide 40mg po daily -monitor strict I/Os and daily weights -ok from a cardiac standpoint for transfer out of ICU and for discharge to rehab when medically ready CAD: s/p PCI with stents this past year -thrombocytopenia on previous admission resolved -cont ASA 81mg daily -not on bblocker due to severe COPD -short runs PSVT and NSVT, keep K and Mg repleted. -Echo last admission normal LV function
[2016-05-01 14:05] VITALS: BP 135/61; PULSE 88
--- NOTE | 2016-05-01 14:43 | PN ---
Progress Note, Physician History of Present Illness: patient stable no issues patient still on ventimask patient doing well - Current Medication List Current Medications: Active Medications Acetaminophen/Codeine Phosphate (Tylenol # 3 -) 1 tab PO Q6H PRN PRN Reason: PAIN Albuterol Sulfate (Ventolin 0.083% Nebulizer Soln -) 1 amp NEB Q4H PRN PRN Reason: SHORT OF BREATH/WHEEZING Last Admin: 04/30/16 02:14 Dose: 1 amp Albuterol/Ipratropium (Duoneb -) 1 amp NEB TIDR [facility] Last Admin: 05/01/16 13:50 Dose: 1 amp Amlodipine Besylate (Norvasc -) 10 mg PO DAILY [facility] Last Admin: 05/01/16 09:47 Dose: 10 mg Aspirin (Ecotrin -) 81 mg PO DAILY [facility] Last Admin: 05/01/16 09:47 Dose: 81 mg Docusate Sodium (Colace -) 100 mg PO BID [facility] Last Admin: 05/01/16 09:48 Dose: Not Given Duloxetine HCl (Cymbalta -) 60 mg PO DAILY [facility] Last Admin: 05/01/16 09:46 Dose: 60 mg Epoetin Keith (Procrit -) 10,000 unit SQ MOWEFR@1000 [facility] Last Admin: 04/28/16 12:29 Dose: Not Given Ferrous Sulfate (Feosol -) 325 mg PO BIDWM [facility] Last Admin: 05/01/16 08:03 Dose: 325 mg Guaifenesin (Mucinex -) 600 mg PO BID [facility] Last Admin: 05/01/16 09:47 Dose: 600 mg Heparin Sodium (Porcine) (Heparin -) 5,000 unit SQ BID [facility] Last Admin: 05/01/16 09:51 Dose: 5,000 unit Mirtazapine (Remeron -) 7.5 mg PO HS [facility] Last Admin: 04/30/16 21:30 Dose: 7.5 mg Nystatin (Nystop Powder -) 1 applic TP DAILY [facility] Last Admin: 05/01/16 09:53 Dose: 1 applic Pantoprazole Sodium (Protonix -) 40 mg PO DAILY [facility] Last Admin: 05/01/16 09:47 Dose: 40 mg Polyethylene Glycol (Miralax (For Daily Use) -) 17 gm PO DAILY [facility] Last Admin: 05/01/16 09:53 Dose: Not Given Prednisone (Deltasone -) 30 mg PO DAILY [facility] Last Admin: 05/01/16 09:46 Dose: 30 mg Pregabalin (Lyrica -) 25 mg PO DAILY [facility] Last Admin: 05/01/16 09:47 Dose: 25 mg Fluticasone/Salmeterol (Advair 100mcg/50mcg -) 1 puff IH BID [facility] Last Admin: 05/01/16 09:48 Dose: 1 puff Senna (Senna -) 1 tab PO DAILY [facility] Last Admin: 05/01/16 09:47 Dose: 1 tab Sodium Chloride ([place] Nasal [place] -) 2 spray NS Q12H PRN PRN Reason: NASAL CONGESTION Tamsulosin HCl (Flomax -) 0.4 mg PO DAILY@0830 [facility] Last Admin: 05/01/16 08:03 Dose: 0.4 mg Torsemide (Demadex -) 40 mg PO DAILY [facility] Last Admin: 05/01/16 09:47 Dose: 40 mg - Objective Vital Signs: Vital Signs Temperature 97.8 F 05/01/16 08:00 Pulse Rate 88 05/01/16 12:00 Respiratory Rate 25 H 05/01/16 12:00 Blood Pressure 135/61 05/01/16 12:00 O2 Sat by Pulse Oximetry (%) 98 05/01/16 09:48 Constitutional: Yes: No Distress, Calm Cardiovascular: Yes: Regular Rate and Rhythm Respiratory: Yes: Regular Gastrointestinal: Yes: Normal Bowel Sounds, Soft Musculoskeletal: Yes: WNL Extremities: Yes: Other Neurological: Yes: Alert Psychiatric: Yes: Alert Labs: CBC, BMP 05/01/16 05:00 05/01/16 05:00 Assessment/Plan patient evaluated UTI Acute on Chronic LV Diastolic Heart Failure Recent MRSA bacteremia CAD Acute on Chronic Renal Failure COPD Anemia breathing difficulty plan continue current mgmt continue resp mgmt incentive igor patient completed vanco dosages no abx cc time 40 min
--- NOTE | 2016-05-01 15:18 | PN ---
Physical Exam: SUBJECTIVE: Patient seen and examined at bedside. No overnight events. No new complaints. Denies CP, [place], palpitations, abd pain, n/v. OBJECTIVE: Vital Signs Period Temp Pulse Resp BP Sys/[place] Pulse Ox Last 24 Hr 97.8 F-98.5 F 86-102 15-25 117-149/57-75 96-98 GENERAL: The patient is awake, alert, mild distress. HEAD: Normal with no signs of trauma. EYES: PERRL, extraocular movements intact, sclera anicteric, conjunctiva clear. No ptosis. ENT: Ears normal, nares patent, moist mucous membranes. NECK: supple, NO JVD LUNGS: Scatttered rhonci bilat. (R>L)no wheezes, no crackles, no accessory muscle use. HEART: Regular rate and rhythm, S1, S2 without murmur, rub or gallop. ABDOMEN: Soft, nontender, nondistended, normoactive bowel sounds, no guarding, no rebound, no hepatosplenomegaly, no masses. EXTREMITIES:LE 1+ pulses, warm, well-perfused, trace edema, LUE s/p removal of picc. dressing c/d/i NEUROLOGICAL: AAO x3 Normal speech, gait not observed. PSYCH: Normal mood, normal affect. SKIN: Bilateral lower ext. scaling Laboratory Results - last 24 hr 04/26/16 04/30/16 05/01/16 07:40 15:30 05:00 WBC 13.2 H RBC 3.05 L Hgb 8.1 L Hct 26.1 L MCV 85.4 MCHC 31.2 L RDW 18.5 H Plt Count 346 MPV 7.2 L Neutrophils % 84.0 H Lymphocytes % 7.0 L D Monocytes % 4.0 Basophils % 1.0 Band Neutrophils 1.0 D Metamyelocytes 1 Myelocytes 2 D Differential Comment Manual diff done Basophilic Stippling 2+ Sodium Potassium Chloride Carbon Dioxide Anion Gap BUN Creatinine Creat Clearance w eGFR Random Glucose Calcium Phosphorus Magnesium Total Bilirubin AST ALT Alkaline Phosphatase Total Protein Albumin Stool Occult Blood Negative Blood Type A POSITIVE Antibody Screen Negative Crossmatch See Detail 05/01/16 05:00 WBC RBC Hgb Hct MCV MCHC RDW Plt Count MPV Neutrophils % Lymphocytes % Monocytes % Basophils % Band Neutrophils Metamyelocytes Myelocytes Differential Comment Basophilic Stippling Sodium 143 Potassium 4.5 Chloride 97 L Carbon Dioxide 39 H Anion Gap 7 L BUN 75 H Creatinine 1.8 H Creat Clearance w eGFR 37.17 Random Glucose 165 H Calcium 7.8 L Phosphorus 3.7 D Magnesium 2.3 Total Bilirubin 0.3 D AST 13 L ALT < 6 L D Alkaline Phosphatase 90 Total Protein 5.1 L Albumin 2.4 L Stool Occult Blood Blood Type Antibody Screen Crossmatch Active Medications Generic Name Dose Route Start Last Admin Trade Name Freq PRN Reason Stop Dose Admin Acetaminophen/Codeine Phosphate 1 tab 04/27/16 19:47 Tylenol # 3 - PO Q6H PRN PAIN Albuterol Sulfate 1 amp 04/27/16 19:47 04/30/16 02:14 Ventolin 0.083% Nebulizer Soln - NEB 1 amp Q4H PRN Administration SHORT OF BREATH/WHEEZING Albuterol/Ipratropium 1 amp 04/27/16 22:00 05/01/16 13:50 Duoneb - NEB 1 amp TIDR [facility] Administration Amlodipine Besylate 10 mg 04/28/16 10:00 05/01/16 09:47 Norvasc - PO 10 mg DAILY [facility] Administration Aspirin 81 mg 04/28/16 10:00 05/01/16 09:47 Ecotrin - PO 81 mg DAILY [facility] Administration Docusate Sodium 100 mg 04/27/16 22:00 05/01/16 09:48 Colace - PO Not Given BID [facility] Duloxetine HCl 60 mg 04/28/16 10:00 05/01/16 09:46 Cymbalta - PO 60 mg DAILY [facility] Administration Epoetin Keith 10,000 unit 04/28/16 10:00 04/28/16 12:29 Procrit - SQ Not Given MOWEFR@1000 [facility] Ferrous Sulfate 325 mg 04/28/16 08:00 05/01/16 08:03 Feosol - PO 325 mg BIDWM [facility] Administration Guaifenesin 600 mg 04/27/16 22:00 05/01/16 09:47 Mucinex - PO 600 mg BID [facility] Administration Heparin Sodium (Porcine) 5,000 unit 04/27/16 22:00 05/01/16 09:51 Heparin - SQ 5,000 unit BID [facility] Administration Mirtazapine 7.5 mg 04/27/16 22:00 04/30/16 21:30 Remeron - PO 7.5 mg HS [facility] Administration Nystatin 1 applic 04/28/16 10:00 05/01/16 09:53 Nystop Powder - TP 1 applic DAILY [facility] Administration Pantoprazole Sodium 40 mg 04/28/16 10:00 05/01/16 09:47 Protonix - PO 40 mg DAILY [facility] Administration Polyethylene Glycol 17 gm 04/28/16 10:00 05/01/16 09:53 Miralax (For Daily Use) - PO Not Given DAILY [facility] Prednisone 30 mg 04/29/16 10:00 05/01/16 09:46 Deltasone - PO 30 mg DAILY [facility] Administration Pregabalin 25 mg 04/28/16 10:00 05/01/16 09:47 Lyrica - PO 25 mg DAILY [facility] Administration Fluticasone/Salmeterol 1 puff 04/27/16 22:00 05/01/16 09:48 Advair 100mcg/50mcg - IH 1 puff BID [facility] Administration Senna 1 tab 04/28/16 10:00 05/01/16 09:47 Senna - PO 1 tab DAILY [facility] Administration Sodium Chloride 2 spray 04/27/16 19:47 [place] Nasal [place] - NS Q12H PRN NASAL CONGESTION Tamsulosin HCl 0.4 mg 04/29/16 09:00 05/01/16 08:03 Flomax - PO 0.4 mg DAILY@0830 [facility] Administration Torsemide 40 mg 04/28/16 10:00 05/01/16 09:47 Demadex - PO 40 mg DAILY [facility] Administration ASSESSMENT/PLAN: 75 yo M wtih PMhx of O2 dependent COPD, HTN, HLD, CAD (s/p 2 stents), CHF, CRF , PVD, chronic lymphedema, pleural effusions requiring thoracentesis, anemia brought to ICU for hypoxia and productive cough. Neuro: * Alert and oriented. * Pain management Pulm: * O2 support for sat 88-92, * On 50% venti mask O2 sat 97% * bipap PRN * Nebulizers standing and prn * chest xray shows LLL infiltrate. * repeat ABG and CXR ID: hx of MDR mrsa bacteremia +hcap +uti * Flu screen(-) * UC- grew yeast like organism * Vanco not given due to appropriate levels. * Lactic acid WNL * Nystatin to groin Renal: UTI/KARLOS * Gentle fluids as tolerated * Monitor electrolytes- repeat BMP in AM * Renal dose medication Cardiovascular: * cardiac enzymes have been (-) * AC with EFFIENT * daily ASA * ECHO done 03/30/16 shows normal LV/RV size and function, no wall motion abn., trace TR. and mild aortic root dilatation. * continue: Amlodipine Besylate (Norvasc -) 10 mg PO DAILY Torsemide (Demadex -) 20 mg PO DAILY [facility] Lasix PRN Prophylactic * DVT with Heparin 5000U BID SQ DISPO: Can be monitored on tele Visit type - Emergency Visit Emergency Visit: Yes ED Registration Date: 04/26/16 Care time: The patient presented to the Emergency Department on the above date and was hospitalized for further evaluation of their emergent condition. - New Patient This patient is new to me today: No - Critical Care Critical Care patient: Yes Total Critical Care Time (in minutes): 33 Critical Care Statement: The care of this patient involved high complexity decision making to prevent further life threatening deterioration of the patient 's condition and/or to evalute & treat vital organ system(s) failure or risk of failure.
[2016-05-01] MEDS ORDERED: EPOETIN ALFA 20,000 UNIT/1 ML VIAL SQ SCH (15:30)
--- NOTE | 2016-05-01 15:47 | PN ---
Teaching Attending Note Name of Resident: Jenelle Nava ATTENDING PHYSICIAN STATEMENT I saw and evaluated the patient. I reviewed the resident's note and discussed the case with the resident. I agree with the resident's findings and plan as documented. SUBJECTIVE: Patient is comfortable with no acute distress. at bedside. Patient is in ICU OBJECTIVE: Vital Signs Temperature 97.8 F 05/01/16 08:00 Pulse Rate 88 05/01/16 12:00 Respiratory Rate 25 H 05/01/16 12:00 Blood Pressure 135/61 05/01/16 12:00 O2 Sat by Pulse Oximetry (%) 98 05/01/16 09:48 GENERAL: The patient is awake, alert, and fully oriented, on no acute distress. Morbid obesity. HEAD: Normal with no signs of trauma. EYES: PERRL, extraocular movements intact, sclera anicteric, conjunctiva clear. ENT: Ears normal, oropharynx clear without exudates, moist mucous membranes. NECK: Trachea midline, full range of motion, supple. LUNGS: Breath sounds equal, rhonchi b/l , no accessory muscle use, on VM continue. HEART: Regular rate and rhythm, S1, S2 positive ,no rub or gallop. ABDOMEN: Soft, Nt,ND, normoactive bowel sounds, no guarding, no rebound, no hepatosplenomegaly, no masses appreciated EXTREMITIES: 2+ pulses, warm, well-perfused, no edema. NEUROLOGICAL: Cranial nerves II through XII grossly intact. Normal speech, gait not observed. PSYCH: Normal mood, normal affect. SKIN: Warm, dry, normal turgor, no rashes or lesions noted CBCD WBC 13.2 K/mm3 (4.0-10.0) H 05/01/16 05:00 RBC 3.05 M/mm3 (4.00-5.60) L 05/01/16 05:00 Hgb 8.1 GM/dL (11.7-16.9) L 05/01/16 05:00 Hct 26.1 % (35.4-49) L 05/01/16 05:00 MCV 85.4 fl (80-96) 05/01/16 05:00 MCHC 31.2 g/dl (32.0-35.9) L 05/01/16 05:00 RDW 18.5 % (11.9-15.9) H 05/01/16 05:00 Plt Count 346 K/MM3 (134-434) 05/01/16 05:00 MPV 7.2 fl (7.5-11.1) L 05/01/16 05:00 CMP Sodium 143 mmol/L (136-145) 05/01/16 05:00 Potassium 4.5 mmol/L (3.5-5.1) 05/01/16 05:00 Chloride 97 mmol/L (98-107) L 05/01/16 05:00 Carbon Dioxide 39 mmol/L (21-32) H 05/01/16 05:00 Anion Gap 7 (8-16) L 05/01/16 05:00 BUN 75 mg/dL (7-18) H 05/01/16 05:00 Creatinine 1.8 mg/dL (0.7-1.3) H 05/01/16 05:00 Creat Clearance w eGFR 37.17 (>60) 05/01/16 05:00 Random Glucose 165 mg/dL (74-106) H 05/01/16 05:00 Calcium 7.8 mg/dL (8.5-10.1) L 05/01/16 05:00 Total Bilirubin 0.3 mg/dL (0.2-1.0) D 05/01/16 05:00 AST 13 U/L (15-37) L 05/01/16 05:00 ALT < 6 U/L (12-78) L D 05/01/16 05:00 Alkaline Phosphatase 90 U/L (45-117) 05/01/16 05:00 Total Protein 5.1 g/dl (6.4-8.2) L 05/01/16 05:00 Albumin 2.4 g/dl (3.4-5.0) L 05/01/16 05:00 CARDIAC ENZYMES Creatine Kinase 14 IU/L (39-308) L 04/26/16 05:30 Troponin I < 0.02 ng/ml (0.00-0.05) 04/26/16 05:30 Current Medications Generic Name Dose Route Start Last Admin Trade Name Freq PRN Reason Stop Dose Admin Acetaminophen/Codeine Phosphate 1 tab 04/27/16 19:47 Tylenol # 3 - PO Q6H PRN PAIN Albuterol Sulfate 1 amp 04/27/16 19:47 04/30/16 02:14 Ventolin 0.083% Nebulizer Soln - NEB 1 amp Q4H PRN Administration SHORT OF BREATH/WHEEZING Albuterol/Ipratropium 1 amp 04/27/16 22:00 05/01/16 13:50 Duoneb - NEB 1 amp TIDR L[facility]E Administration Amlodipine Besylate 10 mg 04/28/16 10:00 05/01/16 09:47 Norvasc - PO 10 mg DAILY [facility] Administration Aspirin 81 mg 04/28/16 10:00 05/01/16 09:47 Ecotrin - PO 81 mg DAILY [facility] Administration Docusate Sodium 100 mg 04/27/16 22:00 05/01/16 09:48 Colace - PO Not Given BID [facility] Duloxetine HCl 60 mg 04/28/16 10:00 05/01/16 09:46 Cymbalta - PO 60 mg DAILY [facility] Administration Epoetin Keith 20,000 unit 05/01/16 15:30 Procrit - SQ Q7D [facility] Ferrous Sulfate 325 mg 04/28/16 08:00 05/01/16 08:03 Feosol - PO 325 mg BIDWM [facility] Administration Guaifenesin 600 mg 04/27/16 22:00 05/01/16 09:47 Mucinex - PO 600 mg BID [facility] Administration Heparin Sodium (Porcine) 5,000 unit 04/27/16 22:00 05/01/16 09:51 Heparin - SQ 5,000 unit BID [facility] Administration Mirtazapine 7.5 mg 04/27/16 22:00 04/30/16 21:30 Remeron - PO 7.5 mg HS [facility] Administration Nystatin 1 applic 04/28/16 10:00 05/01/16 09:53 Nystop Powder - TP 1 applic DAILY [facility] Administration Pantoprazole Sodium 40 mg 04/28/16 10:00 05/01/16 09:47 Protonix - PO 40 mg DAILY [facility] Administration Polyethylene Glycol 17 gm 04/28/16 10:00 05/01/16 09:53 Miralax (For Daily Use) - PO Not Given DAILY [facility] Prednisone 30 mg 04/29/16 10:00 05/01/16 09:46 Deltasone - PO 30 mg DAILY [facility] Administration Pregabalin 25 mg 04/28/16 10:00 05/01/16 09:47 Lyrica - PO 25 mg DAILY [facility] Administration Fluticasone/Salmeterol 1 puff 04/27/16 22:00 05/01/16 09:48 Advair 100mcg/50mcg - IH 1 puff BID [facility] Administration Senna 1 tab 04/28/16 10:00 05/01/16 09:47 Senna - PO 1 tab DAILY [facility] Administration Sodium Chloride 2 spray 04/27/16 19:47 [place] Nasal [place] - NS Q12H PRN NASAL CONGESTION Tamsulosin HCl 0.4 mg 04/29/16 09:00 05/01/16 08:03 Flomax - PO 0.4 mg DAILY@0830 [facility] Administration Torsemide 40 mg 04/28/16 10:00 05/01/16 09:47 Demadex - PO 40 mg DAILY [facility] Administration Medication Instructions Recorded Acetaminophen W/ Codeine #3 1 tab PO Q6H PRN 02/18/16 [Tylenol # 3 -] Albuterol 0.083% Nebulizer [place] 1 amp NEB ASDIR PRN 02/18/16 [Ventolin 0.083% Nebulizer Soln -] Aspirin [Ecotrin] 81 mg PO DAILY 02/18/16 Duloxetine HCl 60 mg PO DAILY 02/18/16 Pregabalin [Lyrica] 25 mg PO DAILY 02/18/16 Acetaminophen [Tylenol .Regular 650 mg PO Q6H PRN #0 tablet 04/12/16 Strength -] Amlodipine Besylate [Norvasc -] 10 mg PO DAILY #30 tablet 04/12/16 Aztreonam [Azactam (Restricted To 0.5 gm IVPB Q8H-IV #9 vial 04/12/16 Id) -] Docusate Sodium [Colace -] 100 mg PO BID #60 capsule 04/12/16 Duloxetine HCl [Cymbalta -] 30 mg PO DAILY #30 capsule. 04/12/16 Pantoprazole Sodium [Protonix -] 40 mg PO DAILY tablet.ec 04/12/16 Picc Line Flush [Picc Line Flush -] 8 ml IVPUSH PRN PRN #0 ml 04/12/16 Polyethylene Glycol 3350 [Miralax 17 gm PO DAILY #1 bottle 04/12/16 119 gm Btl -] Sodium Chloride Nasal [place] [[place] 2 spray NS Q12H PRN #0 bottle 04/12/16 [place] Nasal [place] -] Vancomycin/0.9 % Sod Chloride 1 gm IV DAILY #21 plast..bag 04/12/16 [Vanco 1 Gram/250 ml-0.9% NaCl] Epoetin Keith [Epogen] 10,000 unit SQ MOWEFR@1000 #12 dose 04/13/16 Ferrous Sulfate 325 mg PO BID 04/25/16 Guaifenesin Dm [Robitussin Dm] 10 ml PO Q4H 04/25/16 Guaifenesin [Mucinex] 600 mg PO BID 04/25/16 Levofloxacin [Levaquin] 250 mg PO DAILY 04/25/16 Mirtazapine [Remeron -] 7.5 mg PO HS 04/25/16 Prasugrel HCl [Effient] 10 mg PO DAILY 04/25/16 Pregabalin [Lyrica] 25 mg PO DAILY 04/25/16 Salmeterol/Fluticasone [Advair 1 inh PO BID 04/25/16 100Mcg/50Mcg -] Sennosides [Senna] 8.6 mg PO DAILY 04/25/16 Torsemide [Demadex -] 20 mg PO DAILY 04/25/16 Microbiology 04/26/16 04:30 Blood - Peripheral Venous Blood Culture - Final NO GROWTH AFTER 5 DAYS INCUBATION 04/26/16 04:30 Blood - Peripheral Venous Blood Culture - Final NO GROWTH AFTER 5 DAYS INCUBATION 04/28/16 09:00 Sputum - Endotracheal Suction W/O Vent Gram Stain - Final 04/28/16 09:00 Sputum - Endotracheal Suction W/O Vent Sputum Culture - Final Mr S Aureus 04/25/16 20:54 Urine - Urine Clean Catch Urine Culture - Final Yeast Like Organism 04/26/16 05:25 Nasopharyngeal Swab Respiratory Virus Panel - Preliminary 04/26/16 06:00 Urine For Antigen Detection Legionella Antigen - Final 04/26/16 06:00 Urine For Antigen Detection Streptococcus pneumoniae Antigen (M - Final 04/26/16 05:25 Nasopharyngeal Swab Influenza Types A,B Antigen (TONI) - Final 04/26/16 05:25 Nasopharyngeal Swab - Final ASSESSMENT AND PLAN: This is a 75-year-old man with a history of stage 4 CKD, HTN, CAD, PVD, chronic diastolic heart failure, COPD, obstructive sleep apnea, obesity-hypoventilation syndrome, lymphedema who was here 02/17-04/13 with severe sepsis, MRSA bacteremia , acute hypercapnic respiratory failure, acute renal failure and acute diastolic heart failure, was sent in from [facility] yesterday because of shortness of breath, cough and hypoxia. # Mrsa positive in sputum. Most likely colonization. patient is afebrile. As per ID completed Vancomycin. No further antibiotic needed at this time. # CAD/chronic CHF cardiology on the case, not on b-regine due to severe COPD s/p PCI with stents this past year, cont.ASA 81mg daily, Cont Torsemide 40mg po daily # Acute over chronic kidney injury on stage 4 CKD on Torsemide Improving creatinine 1.8 today with increasing BUN 70, nephrology appreciated continue to monitor strict I/Os and daily weights # Anemia secondary to chronic illness, CKD, s/p 1 u PRBC # Hx of Chronic hypoxic and hypercapnic respiratory failure on VM continue , Bipap if needed # Healthcare-associated pneumonia with recent MRSA bacteremia completed IV antibiotic; on Oxygen, DuoNeb , ID consult , s/p UTI completed IV antibiotics. continues on VM becomes shortness of breath. # Hypertension continue home meds #Thrombocytopenia on previous admission resolved # Obstructive sleep apnea: on oxygen, Bipap # Having short runs PSVT and NSVT, keep K and Mg repleted. monitor DVT PPX; Heparin 5000 u SQ Q8h patient can tx to tele.
--- NOTE | 2016-05-01 19:02 | PN ---
Progress Note, Physician History of Present Illness: Pt alert and oriented. NAD. Dyspnea unchanged. Still in ICU due to bed availability on med -surg - Objective Vital Signs: Vital Signs Temperature 97.8 F 05/01/16 08:00 Pulse Rate 88 05/01/16 12:00 Respiratory Rate 25 H 05/01/16 12:00 Blood Pressure 135/61 05/01/16 12:00 O2 Sat by Pulse Oximetry (%) 98 05/01/16 09:48 Constitutional: Yes: No Distress Eyes: No: Sclera Icterus HENT: Yes: Atraumatic, Normocephalic Neck: Yes: Supple, Trachea Midline Cardiovascular: Yes: Regular Rate and Rhythm. No: JVD Respiratory: Yes: CTA Bilaterally Gastrointestinal: Yes: Soft. No: Tenderness Extremities: No: Calf Tenderness Edema: No Labs: CBC, BMP 05/01/16 05:00 05/01/16 05:00 Problem List - Problems (1) Pneumonia Code(s): J18.9 - PNEUMONIA, UNSPECIFIED ORGANISM Qualifiers: Pneumonia type: due to unspecified organism Laterality: left Lung location: lower lobe of lung Qualified Code(s): J18.9 - Pneumonia, unspecified organism (2) Acute exacerbation of chronic obstructive pulmonary disease (COPD) Code(s): J44.1 - CHRONIC OBSTRUCTIVE PULMONARY DISEASE W (ACUTE) EXACERBATION (3) Anemia Code(s): D64.9 - ANEMIA, UNSPECIFIED (4) Chronic renal insufficiency Code(s): N18.9 - CHRONIC KIDNEY DISEASE, UNSPECIFIED (5) CAD (coronary artery disease) Code(s): I25.10 - ATHSCL HEART DISEASE OF [place] CORONARY ARTERY W/O ANG PCTRS Assessment/Plan Pneumonia-improved Acute Exacerbation COPD- respiratory status improved Anemia-probably secondary to combination of chronic disease and bleeding;stable Chronic Renal Disease: stable CAD-s/p 2 stents. H/o of CHF Suggest: Inhaled bronchodilators IV steroids with tapering O2 to maintain SaO2>90 Discharge planning in progress
--- NOTE | 2016-05-01 20:47 | DS ---
Physical Exam: SUBJECTIVE: Patient seen and examined in ICU. He is feeling better. He is using venti mask. the pt denies chest pain,abdominal pain, fever, chills. OBJECTIVE: Vital Signs Period Temp Pulse Resp BP Sys/[place] Pulse Ox Last 24 Hr 97.8 F-98.3 F 86-102 15-25 117-149/57-75 96-98 PHYSICAL EXAM GENERAL: The patient is awake, alert, and fully oriented, in no acute distress. HEAD: Normal with no signs of trauma. EYES: PERRL, extraocular movements intact, sclera anicteric, conjunctiva clear. ENT: Ears normal, nares patent, oropharynx clear without exudates, moist mucous membranes. NECK: Trachea midline, full range of motion, supple. LUNGS: Breath sounds equal, diminished breath sounds bilaterally, no wheezes, no crackles, no accessory muscle use. HEART: Regular rate and rhythm, S1, S2 without murmur, rub or gallop. ABDOMEN: Soft, nontender, nondistended, normoactive bowel sounds, no guarding, no rebound, no hepatosplenomegaly, no masses. EXTREMITIES: 2+ pulses, warm, well-perfused, no edema, v enous stasis changes in LE B/L. NEUROLOGICAL: Cranial nerves II through XII grossly intact. Normal speech, gait not observed. PSYCH: Normal mood, normal affect. SKIN: Warm, dry, normal turgor, no rashes or lesions noted. LABS Laboratory Results - last 24 hr 05/01/16 05/01/16 05:00 05:00 WBC 13.2 H RBC 3.05 L Hgb 8.1 L Hct 26.1 L MCV 85.4 MCHC 31.2 L RDW 18.5 H Plt Count 346 MPV 7.2 L Neutrophils % 84.0 H Lymphocytes % 7.0 L D Monocytes % 4.0 Basophils % 1.0 Band Neutrophils 1.0 D Metamyelocytes 1 Myelocytes 2 D Differential Comment Manual diff done Basophilic Stippling 2+ Sodium 143 Potassium 4.5 Chloride 97 L Carbon Dioxide 39 H Anion Gap 7 L BUN 75 H Creatinine 1.8 H Creat Clearance w eGFR 37.17 Random Glucose 165 H Calcium 7.8 L Phosphorus 3.7 D Magnesium 2.3 Total Bilirubin 0.3 D AST 13 L ALT < 6 L D Alkaline Phosphatase 90 Total Protein 5.1 L Albumin 2.4 L HOSPITAL COURSE: Date of Admission:04/26/16 Date of Discharge: 05/01/16 Minutes to complete discharge: 40 Discharge Summary Reason For Visit: COPD/CKD/ANEMIA Hospital Course: This is a 75-year-old man who had a prolonged stay In [facility] 02/17-04/13/16 for acute hypercapnic respiratory failure, acute renal failure, severe sepsis, MRSA bacteremia from infected permacath, acute diastolic heart failure and bilateral pleural effusions. He was discharged to [facility] with a PICC for continued treatment with Azactam, Levaquin, Vancomycin. He was sent to the ER last night because of shortness of breath and hypoxia. He reports having a worsening cough with yellow sputum. He is admitted to ICU for healthcare associated pneumonia. He had recent MRSA bacteremia, s/p empiric antibiotics, we continue Oxygen, DuoNebs, ID consult, sputum culture for MRSA, Urine culture showed Yeast like organism, Blood cx is neg.,Ucx was negative. He was also treated for KARLOS on stage CKD.We continued Torsemide 40 mg PO daily, monitored BUN and Cr, consulted Nephrology and monitored I&O. For anemia secondary to chronic ilness we transfused 1 u of PRBC, Lasix one dose after that and monitored H&H. For chronic hypoxic and hypercapnic respiratory failure we continued oxygen supplementation, consulted Fashion Journalist and continued nebulizers. CAD, HTN consulted cardiology and continued home medications. The pt improved and was discharged to DC. Condition: Improved - Instructions Diet, Activity, Other Instructions: Please see your primary Care Doctor in a week. See Dr. Sotomayor and Dr. Johnson in a week. Come to Emergency Room if you have chest pain, shortness of breath, fever, chills, bleeding, loss of consciousness. Referrals: Marvel Tay MD [Primary Care Provider] - Alejandro Sotomayor MD [Staff Physician] - Melvin Johnson MD [Staff Physician] - Disposition: CARE HOME FACILITY - Home Medications Comprehensive Discharge Medication List: Ambulatory Orders Acetaminophen W/ Codeine #3 [Tylenol # 3 -] 1 tab PO Q6H PRN 02/18/16 Albuterol 0.083% Nebulizer Soni [Ventolin 0.083% Nebulizer Soln -] 1 amp NEB ASDIR PRN 02/18/16 Aspirin [Ecotrin] 81 mg PO DAILY 02/18/16 Duloxetine HCl 60 mg PO DAILY 02/18/16 Pregabalin [Lyrica] 25 mg PO DAILY 02/18/16 Acetaminophen [Tylenol .Regular Strength -] 650 mg PO Q6H PRN #0 tablet Amlodipine Besylate [Norvasc -] 10 mg PO DAILY #30 tablet 04/12/16 Aztreonam [Azactam (Restricted To Id) -] 0.5 gm IVPB Q8H-IV #9 vial 04/12/16 Docusate Sodium [Colace -] 100 mg PO BID #60 capsule 04/12/16 Duloxetine HCl [Cymbalta -] 30 mg PO DAILY #30 capsule. 04/12/16 Pantoprazole Sodium [Protonix -] 40 mg PO DAILY tablet.ec 04/12/16 Picc Line Flush [Picc Line Flush -] 8 ml IVPUSH PRN PRN #0 ml 04/12/16 Polyethylene Glycol 3350 [Miralax 119 gm Btl -] 17 gm PO DAILY #1 bottle Sodium Chloride Nasal [place] [[place] Nasal [place] -] 2 spray NS Q12H PRN #0 bottle 04/12/16 Epoetin Keith [Epogen] 10,000 unit SQ MOWEFR@1000 #12 dose 04/13/16 Ferrous Sulfate 325 mg PO BID 04/25/16 Guaifenesin Dm [Robitussin Dm -] 10 ml PO Q4H 04/25/16 Guaifenesin [Mucinex] 600 mg PO BID 04/25/16 Mirtazapine [Remeron -] 7.5 mg PO HS 04/25/16 Prasugrel HCl [Effient] 10 mg PO DAILY 04/25/16 Pregabalin [Lyrica] 25 mg PO DAILY 04/25/16 Salmeterol/Fluticasone [Advair 100Mcg/50Mcg -] 1 inh PO BID 04/25/16 Sennosides [Senna] 8.6 mg PO DAILY 04/25/16 Torsemide [Demadex -] 20 mg PO DAILY 04/25/16 Albuterol 2.5/Ipratropium 0.5 [Duoneb -] 1 amp NEB TIDR amp 05/01/16 Nystatin Powder [Nystop Powder -] 1 applic TP DAILY applic 05/01/16 Prednisone [Deltasone -] 30 mg PO DAILY tablet 05/01/16 Tamsulosin HCl [Flomax -] 0.4 mg PO DAILY@0830 cap.er.24h 05/01/16 Torsemide [Demadex -] 40 mg PO DAILY tablet 05/01/16 Problem List - Problems (1) CAD (coronary artery disease) Code(s): I25.10 - ATHSCL HEART DISEASE OF [place] CORONARY ARTERY W/O ANG PCTRS (2) Acute and chronic respiratory failure ([id number]) Code(s): J96.20 - ACUTE AND CHR RESP FAILURE, UNSP W HYPOXIA OR HYPERCAPNIA Qualifiers: Respiratory failure complication: hypoxia and hypercapnia Qualified Code(s): J96.21 - Acute and chronic respiratory failure with hypoxia This patient is new to me today: Yes Date on this admission: 05/01/16 Emergency Visit: Yes ED Registration Date: 04/26/16 Care time: The patient presented to the Emergency Department on the above date and was hospitalized for further evaluation of their emergent condition. Critical Care patient: Yes Total Critical Care Time (in minutes): 40 Critical Care Statement: The care of this patient involved high complexity decision making to prevent further life threatening deterioration of the patient 's condition and/or to evalute & treat vital organ system(s) failure or risk of failure. - Discharge Referral Referred to [facility] Med P.C.: No
== END 2016-05-01 16:34 | DRG 190 ==
LOC: JER 18:22 → UNDOADMIN 22:21 → JERBED 22:21 → JICU 04-26 04:19
PROVIDERS: ADMIT Specialist; ATTEND Internal Medicine
PROC: 5A09557 Assistance with Respiratory Ventilation, Greater than 96 Consecutive Hours, Continuous Positive Airway Pressure (ICD-10-PCS; principal; 2016-04-27)
PROC: 30233N1 Transfusion of Nonautologous Red Blood Cells into Peripheral Vein, Percutaneous Approach (ICD-10-PCS; 2016-04-27)
DX: J44.1 Chronic obstructive pulmonary disease with (acute) exacerbation (principal); J18.9 Pneumonia, unspecified organism; I47.1 Supraventricular tachycardia; N17.9 Acute kidney failure, unspecified; N39.0 Urinary tract infection, site not specified; I13.0 Hypertensive heart and chronic kidney disease with heart failure and stage 1 through stage 4 chronic kidney disease, or unspecified chronic kidney disease; N18.4 Chronic kidney disease, stage 4 (severe); I50.32 Chronic diastolic (congestive) heart failure; J96.11 Chronic respiratory failure with hypoxia; I25.10 Atherosclerotic heart disease of native coronary artery without angina pectoris; D64.9 Anemia, unspecified; Z98.61 Coronary angioplasty status; D69.6 Thrombocytopenia, unspecified; G47.33 Obstructive sleep apnea (adult) (pediatric); E11.9 Type 2 diabetes mellitus without complications; N40.0 Benign prostatic hyperplasia without lower urinary tract symptoms; Z87.891 Personal history of nicotine dependence; E78.5 Hyperlipidemia, unspecified
CPT/HCPCS: 36415; 36430; 71010-TC; 80048; 80053; 81003; 81015; 82272; 82436; 82550; 82570; 83605; 83735; 83880; 84100; 84133; 84156; 84300; 84484; 84540; 85025; 85027; 86922; 87040; 87070; 87077; 87086; 87186; 87205; 87254; 87804; 87899; 93005; 93010; 94640; 97162-PG; 99285-25; G0480; J0885; J1644; P9038; P9058

== ENCOUNTER 2016-05-14 08:34 | Inpatient (IN) | payer OTHER ==
[2016-05-14] MEDS ORDERED: MAGNESIUM SULF 50% (8.12 MEQ/2 ML-1 GM VIAL) ONE (08:41)
[2016-05-14] MEDS ORDERED: methylPREDNISolone NA SUCC 125 MG/2 ML VIAL ONE (08:41)
[2016-05-14] MEDS ORDERED: ALBUTEROL SO4 2.5/IPRATROPIUM 0.5 INH SOL 3 ML VIAL.NEB. NEB ONE ×2 (08:41→10:44)
--- NOTE | 2016-05-14 08:54 | PDOC ---
History of Present Illness - General History Source: Patient, EMS, Old Records Exam Limitations: No Limitations <Edna Ballesteros - Last Filed: 05/14/16 12:47> - General History Source: Patient, EMS Exam Limitations: No Limitations - History of Present Illness Initial Comments: 05/14/16 08:57 The patient is a 75-year-old man, from [place], with a significant past medical history of anemia, hypertension, hypercholesterolemia, coronary artery disease s/p 2 stents placements, congestive heart failure, chronic obstructive pulmonary disease, pleural effusions (s/p thoracentesis), renal failure, chronic kidney disease, peripheral vascular disease, chronic lymphedema , MRSA in PermaCath who presents to the emergency department via EMS for further evaluation of respiratory distress and hypoxia. Upon ED arrival, patient was immediately placed on a non-rebreather with noted oxygen saturation of 92-93 percent. Upon patient interview, he reports feeling short of breath for the past couple of days. He reports associated symptoms of an intermittent productive cough with white sputum. Patient was seen in this hospital on 2016 for similar complaints and was discharged to [facility] on 2016. Allergies: Penicillin Past Surgical History: 2 stent placements Social History: Former smoker. No ETOH and recreational drug use. Primary Care Physician: Dr. Marvel Tay [phone] <Yulisa Harvey - Last Filed: 05/14/16 13:44> - General Chief Complaint: Shortness of Breath Stated Complaint: breathing problems Time Seen by Provider: 05/14/16 08:54 Past History - Past Medical History Anemia: Yes Asthma: No Cancer: No Cardiac Disorders: Yes (CAD - 2 cardiac stents placed 03/26/2015) CVA: No COPD: Yes (resp failure) CHF: Yes Dementia: No Diabetes: (unknown) GI Disorders: Yes (H/O mild GI bleed) Disorders: No HTN: Yes Hypercholesterolemia: Yes Liver Disease: No Seizures: No Thyroid Disease: No - Surgical History Abdominal Surgery: No Appendectomy: No Cardiac Surgery: Yes (2 cardiac stents) Cholecystectomy: No Lung Surgery: No Neurologic Surgery: No Orthopedic Surgery: No - Immunization History Immunization Up to Date: Yes - Psycho/Social/Smoking Cessation Hx Anxiety: No Suicidal Ideation: No Smoking Status: Yes Smoking History: Former smoker Have you smoked in the past 12 months: No Number of Cigarettes Smoked Daily: 0 If you are a former smoker, when did you quit?: 6 years 'Breaking Loose' booklet given: 04/01/15 Hx Alcohol Use: No Drug/Substance Use Hx: No Substance Use Type: None Hx Substance Use Treatment: No <Edna Ballesteros - Last Filed: 05/14/16 12:47> <Yulisa Harvey - Last Filed: 05/14/16 13:44> - Past Medical History Allergies/Adverse Reactions: Allergies Allergy/AdvReac Type Severity Reaction Status Date / Time Penicillins Allergy Verified 05/14/16 09:02 Home Medications: Ambulatory Orders Acetaminophen W/ Codeine #3 [Tylenol # 3 -] 1 tab PO Q6H PRN 02/18/16 Albuterol 0.083% Nebulizer Soni [Ventolin 0.083% Nebulizer Soln -] 1 amp NEB ASDIR PRN 02/18/16 Aspirin [Ecotrin] 81 mg PO DAILY 02/18/16 Duloxetine HCl 60 mg PO DAILY 02/18/16 Pregabalin [Lyrica] 25 mg PO DAILY 02/18/16 Acetaminophen [Tylenol .Regular Strength -] 650 mg PO Q6H PRN #0 tablet Amlodipine Besylate [Norvasc -] 10 mg PO DAILY #30 tablet 04/12/16 Aztreonam [Azactam (Restricted To Id) -] 0.5 gm IVPB Q8H-IV #9 vial 04/12/16 Docusate Sodium [Colace -] 100 mg PO BID #60 capsule 04/12/16 Duloxetine HCl [Cymbalta -] 30 mg PO DAILY #30 capsule. 04/12/16 Pantoprazole Sodium [Protonix -] 40 mg PO DAILY tablet.ec 04/12/16 Picc Line Flush [Picc Line Flush -] 8 ml IVPUSH PRN PRN #0 ml 04/12/16 Polyethylene Glycol 3350 [Miralax 119 gm Btl -] 17 gm PO DAILY #1 bottle Sodium Chloride Nasal [place] [[place] Nasal [place] -] 2 spray NS Q12H PRN #0 bottle 04/12/16 Epoetin Keith [Epogen] 10,000 unit SQ MOWEFR@1000 #12 dose 04/13/16 Ferrous Sulfate 325 mg PO BID 04/25/16 Guaifenesin Dm [Robitussin Dm -] 10 ml PO Q4H 04/25/16 Guaifenesin [Mucinex] 600 mg PO BID 04/25/16 Mirtazapine [Remeron -] 7.5 mg PO HS 04/25/16 Prasugrel HCl [Effient] 10 mg PO DAILY 04/25/16 Pregabalin [Lyrica] 25 mg PO DAILY 04/25/16 Salmeterol/Fluticasone [Advair 100Mcg/50Mcg -] 1 inh PO BID 04/25/16 Sennosides [Senna] 8.6 mg PO DAILY 04/25/16 Torsemide [Demadex -] 20 mg PO DAILY 04/25/16 Albuterol 2.5/Ipratropium 0.5 [Duoneb -] 1 amp NEB TIDR amp 05/01/16 Nystatin Powder [Nystop Powder -] 1 applic TP DAILY applic 05/01/16 Prednisone [Deltasone -] 30 mg PO DAILY tablet 05/01/16 Tamsulosin HCl [Flomax -] 0.4 mg PO DAILY@0830 cap.er.24h 05/01/16 Torsemide [Demadex -] 40 mg PO DAILY tablet 05/01/16 Review of Systems - Review of Systems Able to Perform ROS?: Yes Comments:: 05/14/16 08:57 CONSTITUTIONAL: Absent: fever, chills, diaphoresis, generalized weakness, malaise, loss of appetite HEENT: Absent: rhinorrhea, nasal congestion, throat pain, throat swelling, difficulty swallowing, mouth swelling, ear pain, eye pain, visual Changes CARDIOVASCULAR: Absent: chest pain, syncope, palpitations, irregular heart rate , lightheadedness, peripheral edema RESPIRATORY: Present: Cough. Shortness of Breath. Absent: dyspnea with exertion , orthopnea, wheezing, stridor, hemoptysis GASTROINTESTINAL:Absent: abdominal pain, abdominal distension, nausea, vomiting , diarrhea, constipation, melena, hematochezia GENITOURINARY: Absent: dysuria, frequency, urgency, hesitancy, hematuria, flank pain, genital pain MUSCULOSKELETAL: Absent: myalgia, arthralgia, joint swelling SKIN: Absent: rash, itching, pallor HEMATOLOGIC/IMMUNOLOGIC: Absent: easy bleeding, easy bruising, lymphadenopathy, frequent infections ENDOCRINE:Absent: unexplained weight gain, unexplained weight loss, heat intolerance, cold intolerance NEUROLOGIC: Absent: headache, focal weakness or paresthesias, dizziness, unsteady gait, seizure, mental status changes, bladder or bowel incontinence PSYCHIATRIC: Absent: anxiety, depression, suicidal or homicidal ideation, hallucinations <HarveyYulisa - Last Filed: 05/14/16 13:44> *Physical Exam - Physical Exam Comments: 05/14/16 08:57 GENERAL: Awake and alert. HEENT: Normocephalic, atraumatic. PERRLA, EOMI. No conjunctival pallor. Sclera are non-icteric. Dry mucous membranes. Oropharynx is clear. NECK: Supple. Full ROM. No JVD. CARDIOVASCULAR: Regular rate and rhythm. No murmurs, rubs, or gallops. PULMONARY: Diffuse rhonchi at the bases and expiratory wheezes. ABDOMINAL: Soft. Non-tender. Non-distended. No rebound or guarding. No organomegaly. Normoactive bowel sounds. MUSCULOSKELETAL: Normal range of motion at all joints. No bony deformities or tenderness. No CVA tenderness. EXTREMITIES: Chronic venous status changes with erythema and chronic lymphedema , bilaterally, left greater than right. No cyanosis. No clubbing. No calf tenderness. SKIN: Chronic venous status changes with erythema and chronic lymphedema, bilaterally, left greater than right. NEUROLOGICAL: Alert, awake, appropriate. Cranial nerves 2-12 intact. PSYCHIATRIC: Cooperative. Good eye contact. Appropriate mood and affect. <HarveyRavinderYulisa - Last Filed: 05/14/16 13:44> Procedures - Central Line Central Line Lumen: triple Central Line Position: femoral (R) Anesthesia: 1% Lidocaine Amount of anesthesia (ccs): 5 Complications: none Post Central Line Insertion: sutured, good blood return - Intubation Time of Intubation: 11:25 Intubation Method: nasotracheal Blade used: Mac (4) Tube Size (Fr): 8.0 Medications: Etomidate (30 ccs administered at 11:21 AM), Succinylcholine (120 ccs administered at 11:22 AM) Tube position @ lip (cm): 22 Tube position confirmed by: Direct visualization, Chest x-ray, Breath sounds Breath Sounds after Intubation: equal Intubation Complications: no complications Post Intubation Xray: Yes <CandiceYulisa - Last Filed: 05/14/16 13:44> ED Treatment Course - LABORATORY CBC & Chemistry Diagram: 05/14/16 09:00 05/14/16 09:00 <Edna Ballesteros - Last Filed: 05/14/16 12:47> - LABORATORY CBC & Chemistry Diagram: 05/14/16 09:00 05/14/16 09:00 - RADIOLOGY Radiograph Interpretation: 05/14/16 09:31 EXAM: RAD/CHEST X-RAY PORTABLE IMPRESSION: Since 05/01/2016, there are progressive congestive changes with bilateral effusions and basilar infiltrates. There is a prominent mediastinum with degenerative changes. <CandiceYulisa - Last Filed: 05/14/16 13:44> Medical Decision Making - Medical Decision Making 05/14/16 09:02 75-year-old male with history of COPD, JOY, CHF, anemia secondary to chronic kidney injury with acute kidney injury last month requiring dialysis emergently , MRSA secondary to infected permacath, CAD, prison resident who presents to the emergency Department with complaints of 1 week history of cough productive with white sputum and shortness of breath since last night. Differential diagnosis includes but is not limited to: Pneumonia, influenza, bronchitis, COPD exacerbation, CHF exacerbation, sepsis, anemia, dehydration, electrolyte abnormality, toxic/metabolic derangement. Plan: 1. EKG 2. Labs 3. Chest x-ray 4. DuoNeb treatment 5. Steroids 6. Mag sulfate 7. Influenza PCR 8. Observe and reevaluate 05/14/16 12:39 Addendum: The patient continued to be hypoxic on BiPAP and an ABG prior tube BiPAP showed that the patient was retaining CO2 therefore the decision was made to intubate the patient (see procedure note). During the intubation it was noted that the patient had a lot of purulent sputum around the vocal cords. Post intubation chest x-ray is pending. A right femoral central line was placed (see procedure note) for intravenous access as the patient has poor peripheral vasculature. A femoral line location was chosen as the patient has poor neck anatomy. The plan is to admit the patient to the ICU. He is been pancultured and Levaquin and vancomycin has been given. He is currently on a propofol drip for sedation. <Edna Ballesteros - Last Filed: 05/14/16 12:47> - Critical Care Time Total Critical Care Time (minutes): 60 Critical Care Statement: The care of this patient involved high complexity decision making to prevent further life threatening deterioration of the patient 's condition and/or to evalute & treat vital organ system(s) failure or risk of failure. - Medical Decision Making 05/14/16 11:45 Overhead page to [employer], Dr. Barrett Vasquez. Immediate response. Case was discussed. Accepts case. 05/14/16 12:36 A page was sent to patient's Primary Care Physician, Dr. Marvel Tay at [phone]. Immediate response. Case was discussed. He would like Hospitalist Service to take the case. 05/14/16 12:37 MicroBlogged Hospitalist. Response by Claire Mcdermott NP at 12:47. Case was discussed. Accepts case. <Yulisa Harvey - Last Filed: 05/14/16 13:44> *DC/Admit/Observation/Transfer - Discharge Dispostion Admit: Yes - Attestations Physician Attestion: 05/14/16 09:04 I, Dr. Edna Ballesteros, attest that the scribes documentation that appears above has been prepared under my direction and personally reviewed by me in its entirety. I confirmed that the note above accurately reflects all work, treatment, procedures, and medical decision-making performed by me. <Edna Ballesteros - Last Filed: 05/14/16 12:47> - Attestations Scribe Attestion: 05/14/16 08:57 Documentation prepared by Yulisa Harvey, acting as medical imaging director for Edna Ballesteros MD. <Yulisa Harvey - Last Filed: 05/14/16 13:44> Diagnosis at time of Disposition: Shortness of breath, Acute exacerbation of chronic obstructive pulmonary disease (COPD), Pneumonia - Discharge Dispostion Condition at time of disposition: Fair - Referrals
[2016-05-14] MEDS ORDERED: MAGNESIUM SULF 50% (8.12 MEQ/2 ML-1 GM VIAL) IVPB ONE (08:56)
[2016-05-14] MEDS ORDERED: methylPREDNISolone NA SUCC 125 MG/2 ML VIAL IVPB ONE (08:56)
[2016-05-14] MEDS ORDERED: ALBUTEROL SO4 0.083% IH SOL 2.5 MG/3 ML VIAL.NEB. NEB ONE (08:56)
[2016-05-14] MEDS ORDERED: IPRATROPIUM BR 0.02% 0.5 MG/2.5 ML VIAL.NEB. NEB ONE (08:56)
[2016-05-14 09:03] VITALS: BMI 31.4
[2016-05-14 09:11] LABS: BASOPHIL 0.6 % (0-2.0); EOSINOPHIL 6.2 % (0-4.5); MCH 26.3 pg (25.7-33.7); MEAN CELL VOLUME 87.8 fl (80-96); MEAN PLT VOLUME 7.4 fl (7.5-11.1); NEUTROPHILS 77.8 % (42.8-82.8); PLATELET COUNT 252 K/MM3 (134-434); RDW 17.6 % (11.9-15.9)
[2016-05-14 09:50] LABS: ALBUMIN 2.3 g/dl (3.4-5.0); ANION GAP 11 (8-16); BILIRUBIN,TOTAL 0.4 mg/dL (0.2-1.0); CALCIUM 8.2 mg/dL (8.5-10.1); CO2 34 mmol/L (21-32); GLUCOSE,RANDOM 80 mg/dL (74-106); SGPT/ALT 7 U/L (12-78); TOT PROT 5.7 g/dl (6.4-8.2)
[2016-05-14 09:53] LABS: ALK PHOS 125 U/L (45-117); TROPONIN I < 0.02 ng/ml (0.00-0.05)
[2016-05-14 09:58] LABS: SGOT/AST 20 U/L (15-37)
[2016-05-14 10:00] LABS: VENOUS PH 7.38 (7.31-7.41)
[2016-05-14 10:01] LABS: VENOUS BLOOD GAS HCO3 23.6 meq/L (22-29)
[2016-05-14 10:09] LABS: INR 1.07 (0.82-1.09); PROTHROMBIN TIME (PATIENT) 11.8 SEC (9.98-11.88)
[2016-05-14 10:12] LABS: ACTIVATED PTT 35.1 SECONDS (26.9-34.4)
[2016-05-14 10:22] LABS: URINE APPEARANCE TURBID; URINE BILIRUBIN NEGATIVE (NEGATIVE); URINE GLUCOSE (UA) NEGATIVE (NEGATIVE); URINE KETONE NEGATIVE (NEGATIVE); URINE NITRITE NEGATIVE (NEGATIVE); URINE UROBILINOGEN NEGATIVE E.U./dl (0.2-1.0)
[2016-05-14 10:25] LABS: URINE BLOOD 1+ (NEGATIVE); URINE LEUK ESTERASE 3+ (NEGATIVE); URINE PROTEIN 2+ (NEGATIVE)
[2016-05-14 10:26] LABS: URINE COLOR YELLOW
[2016-05-14 10:32] LABS: URINE BACTERIA RARE /hpf (NONE SEEN); URINE MUCUS RARE; URINE RBC 5 /hpf (0-3); URINE WBC 1013 /hpf (3-5); YEAST MANY
[2016-05-14] MEDS ORDERED: RAPID SEQUENCE INTUBATION KIT NR ONE ×2 (11:17→11:24)
[2016-05-14] MEDS ORDERED: LEVOFLOXACIN 750 MG IVPB 150 ML IVPB ONE (11:42)
[2016-05-14] MEDS ORDERED: VANCOMYCIN 1,000 MG in DEXTROSE 5%-WATER - 250 ML IVPB ONE (11:42)
[2016-05-14] MEDS ORDERED: SODIUM CHLORIDE 2,000 ML IV STA (11:42)
[2016-05-14] MEDS ORDERED: VANCOMYCIN 1 GRAM (PRE-DOCKED) 250 ML IVPB ONE (11:44)
[2016-05-14] MEDS ORDERED: LEVOFLOXACIN 250 MG IVPB 50 ML IVPB ONE (11:44)
[2016-05-14] MEDS ORDERED: LEVOFLOXACIN 500 MG IVPB 100 ML IVPB ONE (11:44)
[2016-05-14] MEDS ORDERED: PROPOFOL 100 ML ONE (11:49)
[2016-05-14] MEDS ORDERED: LORAZEPAM CARPU-JECT 2 MG/ML DISP.SYRIN ONE (12:09)
[2016-05-14 12:50] LABS: ARTERIAL BLD GAS O2 SATURATION 59.3 % (90-98.9); ARTERIAL BLOOD GAS BASE EXCESS 6.1 meq/l (-2-2); ARTERIAL BLOOD GAS PO2 38.2 mmHg (70-100); ARTERIAL BLOOD GAS pH 7.26 (7.35-7.45)
[2016-05-14 12:51] LABS: ALLENS TEST POSITIVE; ART PUNCT SITE RIGHT BRACHIAL; LPM/O2% 7.0LPM; METHEMOGLOBIN 1.4 % (0.4-1.5); PT. ON O2? YES; TYPE OF O2 AEROSAL TX
[2016-05-14] MEDS ORDERED: ETOMIDATE 20 MG/10 ML AMPUL IVPUSH ONE (12:52)
[2016-05-14] MEDS ORDERED: SUCCINYLCHOLINE CHLORIDE 200 MG/10 ML VIAL IVPUSH ONE (12:53)
[2016-05-14] MEDS ORDERED: PROPOFOL 200 MG/20 ML VIAL IVPUSH ONE (12:54)
[2016-05-14] MEDS ORDERED: PROPOFOL 100 ML IVPB ONE (12:55)
--- NOTE | 2016-05-14 13:03 | HP ---
CHIEF COMPLAINT: difficulty breathing PCP: Dr Tay Roll On Worker: Dr. Jo HISTORY OF PRESENT ILLNESS: Patient intubated. History obtained from at bedside and chart. 75 yr man with COPD oxygen dependent, anemia, HTN, CKD stage 3, PVD, CAD, s/p 2 stents, BIBEMS from [facility] for respiratory distress. As per , patient has been experiencing progressively worsening shortness of breath for past 3 days with an exacerbation this morning. He has also not been eating or drinking well due to poor appetite, having lost nearly 90lbs in past few weeks. Patient has recent ICU stay from 04/26-05/01. ER course was notable for: (1) hypoxic on BiPAP, required intubation (2) EKG without acute ischemic changes, QTC 492, vent 95, RBB, NSR (3) TLC in right femoral Recent Travel: none PAST MEDICAL HISTORY: obtained from chart, as patient is intubated and sedated Hypertension Peripheral vascular disease COPD - chronic retainer, multiple ICU stays, oxygen dependent, multiple hypoxic hypercapnic events, s/p thoracocentesis Chronic kidney disease stage 3 Neprholithiasis, hx CHF - echo 03/30/2016 with normal LV and RV function PAST SURGICAL HISTORY: s/p 2 Cardiac stents Social History: obtained from chart as patient is intubated and sedated Smoking: former smoker Family History: [place] Allergies Penicillins Allergy (Verified 05/14/16 09:02) HOME MEDICATIONS: Home Medications Medication Instructions Recorded Acetaminophen W/ Codeine #3 1 tab PO Q6H PRN 02/18/16 [Tylenol # 3 -] Albuterol 0.083% Nebulizer Soni 1 amp NEB ASDIR PRN 02/18/16 [Ventolin 0.083% Nebulizer Soln -] Aspirin [Ecotrin] 81 mg PO DAILY 02/18/16 Duloxetine HCl 60 mg PO DAILY 02/18/16 Pregabalin [Lyrica] 25 mg PO DAILY 02/18/16 Acetaminophen [Tylenol .Regular 650 mg PO Q6H PRN #0 tablet 04/12/16 Strength -] Amlodipine Besylate [Norvasc -] 10 mg PO DAILY #30 tablet 04/12/16 Aztreonam [Azactam (Restricted To 0.5 gm IVPB Q8H-IV #9 vial 04/12/16 Id) -] Docusate Sodium [Colace -] 100 mg PO BID #60 capsule 04/12/16 Duloxetine HCl [Cymbalta -] 30 mg PO DAILY #30 capsule. 04/12/16 Pantoprazole Sodium [Protonix -] 40 mg PO DAILY tablet.ec 04/12/16 Picc Line Flush [Picc Line Flush -] 8 ml IVPUSH PRN PRN #0 ml 04/12/16 Polyethylene Glycol 3350 [Miralax 17 gm PO DAILY #1 bottle 04/12/16 119 gm Btl -] Sodium Chloride Nasal [place] [[place] 2 spray NS Q12H PRN #0 bottle 04/12/16 [place] Nasal [place] -] Epoetin Keith [Epogen] 10,000 unit SQ MOWEFR@1000 #12 dose 04/13/16 Ferrous Sulfate 325 mg PO BID 04/25/16 Guaifenesin Dm [Robitussin Dm -] 10 ml PO Q4H 04/25/16 Guaifenesin [Mucinex] 600 mg PO BID 04/25/16 Mirtazapine [Remeron -] 7.5 mg PO HS 04/25/16 Prasugrel HCl [Effient] 10 mg PO DAILY 04/25/16 Pregabalin [Lyrica] 25 mg PO DAILY 04/25/16 Salmeterol/Fluticasone [Advair 1 inh PO BID 04/25/16 100Mcg/50Mcg -] Sennosides [Senna] 8.6 mg PO DAILY 04/25/16 Torsemide [Demadex -] 20 mg PO DAILY 04/25/16 Albuterol 2.5/Ipratropium 0.5 1 amp NEB TIDR amp 05/01/16 [Duoneb -] Nystatin Powder [Nystop Powder -] 1 applic TP DAILY applic 05/01/16 Prednisone [Deltasone -] 30 mg PO DAILY tablet 05/01/16 Tamsulosin HCl [Flomax -] 0.4 mg PO DAILY@0830 cap.er.24h 05/01/16 Torsemide [Demadex -] 40 mg PO DAILY tablet 05/01/16 REVIEW OF SYSTEMS UNABLE TO OBTAIN, patient is intubated. PHYSICAL EXAMINATION GENERAL: on propfol drip, intubated, NAD HEAD: Normal with no signs of trauma. EYES: Pupils equal, round and reactive to light, extraocular movements intact, sclera anicteric, conjunctiva clear. EARS, NOSE, THROAT: Ears normal, nares patent, NG tube and endotracheal tube in place. NECK: without lymphadenopathy CHEST: healing scar on right upper chest from PICC line, no surrounding erythema or discharge from site. LUNGS: coarse breath sounds anteriorly, on vent. no wheezing. HEART: Regular rate and rhythm, normal S1 and S2 ABDOMEN: obese, Soft, nontender, not distended, normoactive bowel sounds UPPER EXTREMITIES: 2+ pulses, warm, well-perfused. No cyanosis. No clubbing. No peripheral edema. LOWER EXTREMITIES: 2+ pulses, warm, well-perfused. No peripheral edema. dry thickened skin on b/l lower legs, no erythema, no skin breakdown Last Vital Signs Temp Pulse Resp BP Pulse Ox 99 F 74 18 105/60 94 L 05/14/16 18:00 05/14/16 18:00 05/14/16 18:00 05/14/16 18:00 05/14/16 13:55 ASSESSMENT/PLAN: 75 yr old with multiple pulmonary and cardiac co-morbidities, MRSA in sputum, recent ICU admission, BIBEMS for respiratory distress, with cardiac arrest and intubation in ED admitted to ICU for hypercapneic hypoxic respiratory failure. #COPD oxygen dependent- acute hypoxic hypercapneic respiratory failure, acute on chronic exacerbation - Admitted to ICU, intubated on vent, with propofol drip titrated to maintain sedation - Cxy with progressive congestive changes with bilateral effusions and basilar infiltrates -- abx Aztreonam 1gm BID IVPB, Vancomycin 1gm daily -- start 05/14 - solumedrol 40mg TID IVPB - sputum cx pending #HTN - currently controlled - hold all po medications as pt is intubated - lasix 40mg IVPB qdaily #CHF - diurese with lasix IVPB 40mg daily #CAD - cardiology consulted - no acute ischemic changes on EKG, ASA 300 VA #CKD stage 3 - monitor BMP #Anemia, chronic - monitor H/H, transfuse if <8.0 - iron studies in 02/2016 with normal serum iron, ferritin, iron saturation, with TIBC low Code status: FULL CODE Diet - currently intubated DVT; Heparin TId GI: protonix 40mg IVPB daily Visit type - Emergency Visit Emergency Visit: No - New Patient This patient is new to me today: No - Critical Care Critical Care patient: Yes Total Critical Care Time (in minutes): 38 Critical Care Statement: The care of this patient involved high complexity decision making to prevent further life threatening deterioration of the patient 's condition and/or to evalute & treat vital organ system(s) failure or risk of failure.
[2016-05-14] MEDS ORDERED: FLUCONAZOLE 200 MG/NS 100 ML IVPB ONE (13:14)
[2016-05-14 14:01] LABS: ARTERIAL BLD GAS O2 SATURATION 94.4 % (90-98.9); ARTERIAL BLOOD GAS BASE EXCESS 5.8 meq/l (-2-2); ARTERIAL BLOOD GAS HCO3 31.3 meq/L (22-26); ARTERIAL BLOOD GAS PO2 72.3 mmHg (70-100); ARTERIAL BLOOD GAS pH 7.38 (7.35-7.45)
[2016-05-14 14:02] LABS: ALLENS TEST POSITIVE; ART PUNCT SITE LEFT RADIAL; LPM/O2% 50%; PT. ON O2? YES; TYPE OF O2 MECH VENT
[2016-05-14 14:03] LABS: MECH. VENT. YES; VENT RATE 18; VT/PRESS 500
--- NOTE | 2016-05-14 14:41 | PN ---
Teaching Attending Note Name of Resident: Melody Banks ATTENDING PHYSICIAN STATEMENT I saw and evaluated the patient. I reviewed the resident's note and discussed the case with the resident. I agree with the resident's findings and plan as documented. SUBJECTIVE: Patient is intubated, sedated going to ICU. Patient was at [facility] ,as per He was doing well until today. Stated to his that he is not able to breath and that he needs to go to the hospital since not feeling well. OBJECTIVE: Vital Signs Temperature 98.8 F 05/14/16 13:55 Pulse Rate 90 05/14/16 13:55 Respiratory Rate 20 05/14/16 14:23 Blood Pressure 102/60 05/14/16 13:55 O2 Sat by Pulse Oximetry (%) 94 L 05/14/16 13:55 GENERAL: intubated , but eyes open . HEAD: Normal with no signs of trauma. EYES: Pupils equal, round and reactive to light, extraocular movements intact, sclera anicteric, conjunctiva clear. No lid lag. EARS, NOSE, THROAT: Ears normal, positive for NG-tube , oropharynx clear without exudates. Moist mucous membranes. NECK: Normal range of motion, supple without lymphadenopathy, JVD, or masses. LUNGS: intubated, sedated positive for Et-tube ,positive for rales HEART: Regular rate and rhythm, normal S1 and S2 ,,positive for MEERA 2/6 ABDOMEN: Soft, nontender, not distended, normoactive bowel sounds, no guarding, no rebound, no masses. No hepatomegaly or splenomegaly. MUSCULOSKELETAL: Normal range of motion at all joints. No bony deformities or tenderness. No CVA tenderness. EXTREMITIES: 2+ pulses, warm, well-perfused. positive for Edema 2 plus NEURO: Cranial nerves II-XII intact. Normal speech. PSYCHIATRIC: Cooperative. Good eye contact. Appropriate mood and affect. SKIN: Warm, dry, normal turgor, no rashes or lesions noted. CBCD WBC 11.0 K/mm3 (4.0-10.0) H 05/14/16 09:00 RBC 3.09 M/mm3 (4.00-5.60) L 05/14/16 09:00 Hgb 8.1 GM/dL (11.7-16.9) L 05/14/16 09:00 Hct 27.1 % (35.4-49) L 05/14/16 09:00 MCV 87.8 fl (80-96) 05/14/16 09:00 MCHC 30.0 g/dl (32.0-35.9) L 05/14/16 09:00 RDW 17.6 % (11.9-15.9) H 05/14/16 09:00 Plt Count 252 K/MM3 (134-434) D 05/14/16 09:00 MPV 7.4 fl (7.5-11.1) L 05/14/16 09:00 CMP Sodium 144 mmol/L (136-145) 05/14/16 09:00 Potassium 4.5 mmol/L (3.5-5.1) 05/14/16 09:00 Chloride 99 mmol/L (98-107) 05/14/16 09:00 Carbon Dioxide 34 mmol/L (21-32) H 05/14/16 09:00 Anion Gap 11 (8-16) 05/14/16 09:00 BUN 24 mg/dL (7-18) H D 05/14/16 09:00 Creatinine 2.0 mg/dL (0.7-1.3) H 05/14/16 09:00 Creat Clearance w eGFR 32.92 (>60) 05/14/16 09:00 Random Glucose 80 mg/dL (74-106) D 05/14/16 09:00 Calcium 8.2 mg/dL (8.5-10.1) L 05/14/16 09:00 Total Bilirubin 0.4 mg/dL (0.2-1.0) D 05/14/16 09:00 AST 20 U/L (15-37) D 05/14/16 09:00 ALT 7 U/L (12-78) L 05/14/16 09:00 Alkaline Phosphatase 125 U/L (45-117) H D 05/14/16 09:00 Total Protein 5.7 g/dl (6.4-8.2) L 05/14/16 09:00 Albumin 2.3 g/dl (3.4-5.0) L 05/14/16 09:00 CARDIAC ENZYMES Creatine Kinase 26 IU/L (39-308) L 05/14/16 09:00 Troponin I < 0.02 ng/ml (0.00-0.05) 05/14/16 09:00 Current Medications Generic Name Dose Route Start Last Admin Trade Name Freq PRN Reason Stop Dose Admin Chlorhexidine Gluconate 1 applic 05/14/16 22:00 Hibiclens For Decolonization - TP HS LESLEE Propofol 100 mls @ 3.062 mls/hr 05/14/16 12:55 05/14/16 12:56 Diprivan - IVPB 05/15/16 21:34 3.062 mls/hr TITR ONE Administration Protocol 5 MCG/KG/MIN Mupirocin 1 applic 05/14/16 22:00 Bactroban Ointment (For Decolonization) - NS 05/19/16 21:59 BID LESLEE ASSESSMENT AND PLAN: The patient is a 75-year-old man, from [facility], with a significant past medical history of anemia, hypertension, hypercholesterolemia, coronary artery disease s/p 2 stents placements, congestive heart failure, chronic obstructive pulmonary disease, pleural effusions (s/p thoracentesis), Acute renal failure over chronic kidney disease, peripheral vascular disease, chronic lymphedema, MRSA in PermaCath was treated with IV antibiotic who presents to the emergency department via EMS for further evaluation of respiratory distress and hypoxia. While in ED. patient continued to be hypoxic on BiPAP and an ABG prior tube BiPAP showed that the patient was retaining CO2 therefore, Patient was intubated and was found to have a lot of purulent sputum around the vocal cords. A right femoral central line was placed for intravenous access as the patient has poor peripheral vasculature. A femoral line location was chosen as the patient has poor neck anatomy. Therefore patient was admitted to ICU. He is been pancultured and Levaquin and vancomycin has been given. He is currently on a propofol drip for sedation. # Acute hypoxic and hypercapnic respiratory failure s/p intubation on propofol drip. Admitted in ICU. Patient is pancultured and started empiric IV levaquin and Vancomycin IV Id and intencivist are consulted. # Acute UTI started on Levaquin and given Diflucan 200mg IV for yeast growth in the UA. # Acute over chronic kidney injury on stage 4 CKD with creatinine of 2.0 with BUN of 24 , nephrology consult appreciated continue to monitor strict I/Os and daily weights. # CAD/chronic CHF cardiology consulted , not on b-regine due to severe COPD s/p PCI with stents this past year, cont.ASA 300mg rectally since intubated . # Anemia secondary to chronic illness, CKD, will monitor, type and screen for 2 units # Hx of Healthcare-associated pneumonia with recent MRSA bacteremia s/p IV antibiotic # Hypertension stable at this time DVT PPX; Heparin 5000 u SQ Q8h
[2016-05-14] MEDS ORDERED: ALBUTEROL SO4 0.083% IH SOL 2.5 MG/3 ML VIAL.NEB. NEB PRN (14:59)
[2016-05-14] MEDS ORDERED: ACETAMINOPHEN 325 MG TABLET (FP) PO PRN (14:59)
[2016-05-14] MEDS ORDERED: guaiFENesin/D-METHORPHAN HB 10 ML UNIT-DOSE CUPS PO SCH (15:00)
--- NOTE | 2016-05-14 15:08 | CONSULT ---
Consult Consult Specialty:: PULMONARY CRITICAL CARE Referred by:: Darren Reason for Consultation:: Respiratory failure - History of Present Illness Chief Complaint: respiratory distress History of Present Illness: 75 y/o man NHR with HTN, CAD, CHF, CKD, pleural effusions, COPD, multiple prior intubations, MRSA bacteremia. At baseline he is on 50% Oxygen and nocturnal NIPPV. He is a chronic retainer with a HCO3 of 34. He c/o productive cough and fevers, was hypoxic in the ED requiring NRB to maintain a SpO2 in the low 90s, eventually failed and was intubated. He was cultured, started on Vanc/LVQ, a femoral TLC was placed and he was transferred to the ED. 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: Peripheral Neuropathy Cardio/Vascular: Yes: CAD, CHF (diastolic), HTN, Hyperlipdemia Pulmonary: Yes: COPD, O2 Dependent, Sleep Apnea Renal/: Yes: Renal Inusuff, Renal Calculi Dermatology: Yes: Cellulitis (Cellulitis lower extremiites during patient's hospitalization in February) Additional Medical History: Obesity - Past Surgical History Past Surgical History: Yes: None - Alcohol/Substance Use Hx Alcohol Use: No History of Substance Use: reports: None - Smoking History Smoking history: Former smoker Have you smoked in the past 12 months: No Aproximately how many cigarettes per day: 0 If you are a former smoker, when did you quit?: 6 years - Social History ADL: Independent 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 History of Recent Travel: No Home Medications - Allergies Allergies/Adverse Reactions: Allergies Allergy/AdvReac Type Severity Reaction Status Date / Time Penicillins Allergy Verified 05/14/16 09:02 - Home Medications Home Medications: Ambulatory Orders Acetaminophen W/ Codeine #3 [Tylenol # 3 -] 1 tab PO Q6H PRN 02/18/16 Albuterol 0.083% Nebulizer Soni [Ventolin 0.083% Nebulizer Soln -] 1 amp NEB ASDIR PRN 02/18/16 Aspirin [Ecotrin] 81 mg PO DAILY 02/18/16 Duloxetine HCl 60 mg PO DAILY 02/18/16 Pregabalin [Lyrica] 25 mg PO DAILY 02/18/16 Acetaminophen [Tylenol .Regular Strength -] 650 mg PO Q6H PRN #0 tablet Amlodipine Besylate [Norvasc -] 10 mg PO DAILY #30 tablet 04/12/16 Aztreonam [Azactam (Restricted To Id) -] 0.5 gm IVPB Q8H-IV #9 vial 04/12/16 Docusate Sodium [Colace -] 100 mg PO BID #60 capsule 04/12/16 Duloxetine HCl [Cymbalta -] 30 mg PO DAILY #30 capsule. 04/12/16 Pantoprazole Sodium [Protonix -] 40 mg PO DAILY tablet.ec 04/12/16 Picc Line Flush [Picc Line Flush -] 8 ml IVPUSH PRN PRN #0 ml 04/12/16 Polyethylene Glycol 3350 [Miralax 119 gm Btl -] 17 gm PO DAILY #1 bottle Sodium Chloride Nasal [place] [[place] Nasal [place] -] 2 spray NS Q12H PRN #0 bottle 04/12/16 Epoetin Keith [Epogen] 10,000 unit SQ MOWEFR@1000 #12 dose 04/13/16 Ferrous Sulfate 325 mg PO BID 04/25/16 Guaifenesin Dm [Robitussin Dm -] 10 ml PO Q4H 04/25/16 Guaifenesin [Mucinex] 600 mg PO BID 04/25/16 Mirtazapine [Remeron -] 7.5 mg PO HS 04/25/16 Prasugrel HCl [Effient] 10 mg PO DAILY 04/25/16 Pregabalin [Lyrica] 25 mg PO DAILY 04/25/16 Salmeterol/Fluticasone [Advair 100Mcg/50Mcg -] 1 inh PO BID 04/25/16 Sennosides [Senna] 8.6 mg PO DAILY 04/25/16 Torsemide [Demadex -] 20 mg PO DAILY 04/25/16 Albuterol 2.5/Ipratropium 0.5 [Duoneb -] 1 amp NEB TIDR amp 05/01/16 Nystatin Powder [Nystop Powder -] 1 applic TP DAILY applic 05/01/16 Prednisone [Deltasone -] 30 mg PO DAILY tablet 05/01/16 Tamsulosin HCl [Flomax -] 0.4 mg PO DAILY@0830 cap.er.24h 05/01/16 Torsemide [Demadex -] 40 mg PO DAILY tablet 05/01/16 Family Disease History - Family Disease History Family History: Unable to Obtain Family Disease History: Other: Father (parkinson's disease) Review of Systems Unable to obtain ROS, reason: unresponsive, sedated - Review of Systems Constitutional: reports: Fever Respiratory: reports: Cough, SOB Physical Exam Vital Signs: Vital Signs Temperature 98.8 F 05/14/16 13:55 Pulse Rate 90 05/14/16 13:55 Respiratory Rate 18 05/14/16 14:55 Blood Pressure 102/60 05/14/16 13:55 O2 Sat by Pulse Oximetry (%) 94 L 05/14/16 13:55 Constitutional: Yes: Obese Eyes: Yes: WNL HENT: Yes: Atraumatic, Normocephalic Neck: Yes: Supple, Trachea Midline Cardiovascular: Yes: Pulse Irregular Respiratory: Yes: Diminished, Intubated, Mechanically Ventilated, Rhonchi Gastrointestinal: Yes: Soft, Abdomen, Obese Extremities: Yes: Cool Edema: Yes Edema: LLE: 1+, RLE: 1+ Peripheral Pulses WNL: Yes Integumentary: Yes: WNL Labs: CBC, BMP 05/14/16 09:00 05/14/16 09:00 Imaging - Results Chest X-ray: Report Reviewed, Image Reviewed Assessment/Plan Hypoxemic/hypercapnic respiratory failure Sepsis - PNA, UTI COPD CHF CKD -Mechanical ventilation - daily SBT -Abx per ID -Nebs -Steroids -Diuresis -GI and DVT PPx -GOC discussions - multiple ICU admits, chronically critically ill Thank you for this interesting consult Critically Ill 35min Miguel Pinedo Pulm/CC HYDROSTATIC TESTER
--- NOTE | 2016-05-14 17:12 | CONSULT ---
Consult Consult Specialty:: infectious diseases Reason for Consultation:: resp failure. sepsis - History of Present Illness Chief Complaint: not feeling well. difficuilty breathing History of Present Illness: this patient with a long history and multiple complication well known to me long hospital stays with resp failure and pleural effusion with mrsa pneumonia and bilateral cellulitis of the leg coming from the retirement with resp failure again His mentions that his diet has become very poor and he has become very weak rest of the history as follows 75 yr man with COPD oxygen dependent, anemia, HTN, CKD stage 3, PVD, CAD, s/p 2 stents, BIBEMS from [facility] for respiratory distress. As per , patient has been experiencing progressively worsening shortness of breath for past 3 days with an exacerbation this morning. He has also not been eating or drinking well due to poor appetite, having lost nearly 90lbs in past few weeks. Patient has recent ICU stay from 04/26-05/01. 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: Peripheral Neuropathy Cardio/Vascular: Yes: CAD, CHF (diastolic), HTN, Hyperlipdemia Pulmonary: Yes: COPD, O2 Dependent, Sleep Apnea Renal/: Yes: Renal Inusuff, Renal Calculi Dermatology: Yes: Cellulitis (Cellulitis lower extremiites during patient's hospitalization in February) Additional Medical History: Obesity - Past Surgical History Past Surgical History: Yes: None - Alcohol/Substance Use Hx Alcohol Use: No History of Substance Use: reports: None - Smoking History Smoking history: Former smoker Have you smoked in the past 12 months: No Aproximately how many cigarettes per day: 0 If you are a former smoker, when did you quit?: 6 years - Social History ADL: Independent 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 History of Recent Travel: No Home Medications - Allergies Allergies/Adverse Reactions: Allergies Allergy/AdvReac Type Severity Reaction Status Date / Time Penicillins Allergy Verified 05/14/16 09:02 - Home Medications Home Medications: Ambulatory Orders Acetaminophen W/ Codeine #3 [Tylenol # 3 -] 1 tab PO Q6H PRN 02/18/16 Albuterol 0.083% Nebulizer Soni [Ventolin 0.083% Nebulizer Soln -] 1 amp NEB ASDIR PRN 02/18/16 Aspirin [Ecotrin] 81 mg PO DAILY 02/18/16 Acetaminophen [Tylenol .Regular Strength -] 650 mg PO Q6H PRN #0 tablet Amlodipine Besylate [Norvasc -] 10 mg PO DAILY #30 tablet 04/12/16 Docusate Sodium [Colace -] 100 mg PO BID #60 capsule 04/12/16 Duloxetine HCl [Cymbalta -] 30 mg PO DAILY #30 capsule. 04/12/16 Pantoprazole Sodium [Protonix -] 40 mg PO DAILY tablet.ec 04/12/16 Sodium Chloride Nasal [place] [[place] Nasal [place] -] 2 spray NS Q12H PRN #0 bottle 04/12/16 Epoetin Keith [Epogen] 10,000 unit SQ MOWEFR@1000 #12 dose 04/13/16 Ferrous Sulfate 325 mg PO BID 04/25/16 Guaifenesin [Mucinex] 600 mg PO Q12H 04/25/16 Mirtazapine [Remeron -] 7.5 mg PO HS 04/25/16 Prasugrel HCl [Effient] 10 mg PO DAILY 04/25/16 Pregabalin [Lyrica] 25 mg PO HS 04/25/16 Salmeterol/Fluticasone [Advair 100Mcg/50Mcg -] 1 inh PO BID 04/25/16 Sennosides [Senna] 2 tab PO HS 04/25/16 Albuterol 2.5/Ipratropium 0.5 [Duoneb -] 1 amp NEB TIDR amp 05/01/16 Tamsulosin HCl [Flomax -] 0.4 mg PO DAILY@0830 cap.er.24h 05/01/16 Torsemide [Demadex -] 40 mg PO DAILY tablet 05/01/16 Aa/Hydrolyzed Collagen, Whey [Lps 15-30 Liquid] 30 ml PO BID 05/14/16 Ondansetron HCl [Zofran] 4 mg PO Q8H PRN 05/14/16 Sulfamethoxazole/Trimethoprim [Bactrim Ds -] 1 tab PO BID 05/14/16 Family Disease History - Family Disease History Family Disease History: Other: Father (parkinson's disease) Review of Systems Unable to obtain ROS, reason: unable to obtain Physical Exam Vital Signs: Vital Signs Temperature 99.4 F 05/14/16 15:15 Pulse Rate 78 05/14/16 16:46 Respiratory Rate 18 05/14/16 16:46 Blood Pressure 106/59 05/14/16 16:46 O2 Sat by Pulse Oximetry (%) 94 L 05/14/16 13:55 Constitutional: Yes: Obese, Other Eyes: Yes: Conjunctiva Clear HENT: Yes: Atraumatic, Other Neck: Yes: Supple Cardiovascular: Yes: Regular Rate and Rhythm Respiratory: Yes: Intubated, Mechanically Ventilated, Rhonchi Gastrointestinal: Yes: Normal Bowel Sounds, Soft Musculoskeletal: Yes: Other Extremities: Yes: Other (venous stasis changes) Neurological: Yes: Other Psychiatric: Yes: Other Imaging - Results Chest X-ray: Report Reviewed, Image Reviewed Assessment/Plan Problem List - Problems (1) Acute and chronic respiratory failure ([id number]) Code(s): J96.20 - ACUTE AND CHR RESP FAILURE, UNSP W HYPOXIA OR HYPERCAPNIA Qualifiers: Respiratory failure complication: hypoxia and hypercapnia Qualified Code(s): J96.21 - Acute and chronic respiratory failure with hypoxia (2) Congestive heart failure Code(s): I50.9 - HEART FAILURE, UNSPECIFIED (3) Renal insufficiency Code(s): N28.9 - DISORDER OF KIDNEY AND URETER, UNSPECIFIED (4) Acute exacerbation of chronic obstructive pulmonary disease (COPD) Code(s): J44.1 - CHRONIC OBSTRUCTIVE PULMONARY DISEASE W (ACUTE) EXACERBATION sepsis pneumonia i am worried that patient [facility] be having mrsa pneumonia patinet is going iin repeated resp failure plan will start patient on vanco and aztreonam continue supportive measures sputum for culture await all other cx report nutrition cc time 45 min
[2016-05-14] MEDS ORDERED: VANCOMYCIN 1 GRAM (PRE-DOCKED) 1,000 MG/250 ML BAG IVPB SCH (18:00)
--- NOTE | 2016-05-14 19:59 | CON.CARD ---
Consult Consult Specialty:: Cardiology for Netta. - History of Present Illness History of Present Illness: The patient is a 75-year-old man, from [facility], with a significant past medical history of anemia, hypertension, hypercholesterolemia, coronary artery disease s/p 2 stents placements, congestive heart failure, chronic obstructive pulmonary disease, pleural effusions (s/p thoracentesis), renal failure, chronic kidney disease, peripheral vascular disease, chronic lymphedema , MRSA in PermaCath who presents to the emergency department via EMS for further evaluation of respiratory distress and hypoxia. Upon ED arrival, patient was immediately placed on a non-rebreather with noted oxygen saturation of 92-93 percent. Upon patient interview, he reports feeling short of breath for the past couple of days. He reports associated symptoms of an intermittent productive cough with white sputum. Patient was seen in this hospital on 2016 for similar complaints and was discharged to [facility] on 2016. 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: Peripheral Neuropathy Cardio/Vascular: Yes: CAD, CHF (diastolic), HTN, Hyperlipdemia Pulmonary: Yes: COPD, O2 Dependent, Sleep Apnea Renal/: Yes: Renal Inusuff, Renal Calculi Dermatology: Yes: Cellulitis (Cellulitis lower extremiites during patient's hospitalization in February) Additional Medical History: Obesity - Past Surgical History Past Surgical History: Yes: None - Alcohol/Substance Use Hx Alcohol Use: No History of Substance Use: reports: None - Smoking History Smoking history: Former smoker Have you smoked in the past 12 months: No Aproximately how many cigarettes per day: 0 If you are a former smoker, when did you quit?: 6 years - Social History ADL: Independent 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 History of Recent Travel: No Home Medications - Allergies Allergies/Adverse Reactions: Allergies Allergy/AdvReac Type Severity Reaction Status Date / Time Penicillins Allergy Verified 05/14/16 09:02 - Home Medications Home Medications: Ambulatory Orders Acetaminophen W/ Codeine #3 [Tylenol # 3 -] 1 tab PO Q6H PRN 02/18/16 Albuterol 0.083% Nebulizer Soni [Ventolin 0.083% Nebulizer Soln -] 1 amp NEB ASDIR PRN 02/18/16 Aspirin [Ecotrin] 81 mg PO DAILY 02/18/16 Acetaminophen [Tylenol .Regular Strength -] 650 mg PO Q6H PRN #0 tablet Amlodipine Besylate [Norvasc -] 10 mg PO DAILY #30 tablet 04/12/16 Docusate Sodium [Colace -] 100 mg PO BID #60 capsule 04/12/16 Duloxetine HCl [Cymbalta -] 30 mg PO DAILY #30 capsule. 04/12/16 Pantoprazole Sodium [Protonix -] 40 mg PO DAILY tablet.ec 04/12/16 Sodium Chloride Nasal English [[place] English Nasal English -] 2 spray NS Q12H PRN #0 bottle 04/12/16 Epoetin Keith [Epogen] 10,000 unit SQ MOWEFR@1000 #12 dose 04/13/16 Ferrous Sulfate 325 mg PO BID 04/25/16 Guaifenesin [Mucinex] 600 mg PO Q12H 04/25/16 Mirtazapine [Remeron -] 7.5 mg PO HS 04/25/16 Prasugrel HCl [Effient] 10 mg PO DAILY 04/25/16 Pregabalin [Lyrica] 25 mg PO HS 04/25/16 Salmeterol/Fluticasone [Advair 100Mcg/50Mcg -] 1 inh PO BID 04/25/16 Sennosides [Senna] 2 tab PO HS 04/25/16 Albuterol 2.5/Ipratropium 0.5 [Duoneb -] 1 amp NEB TIDR amp 05/01/16 Tamsulosin HCl [Flomax -] 0.4 mg PO DAILY@0830 cap.er.24h 05/01/16 Torsemide [Demadex -] 40 mg PO DAILY tablet 05/01/16 Aa/Hydrolyzed Collagen, Whey [Lps 15-30 Liquid] 30 ml PO BID 05/14/16 Ondansetron HCl [Zofran] 4 mg PO Q8H PRN 05/14/16 Sulfamethoxazole/Trimethoprim [Bactrim Ds -] 1 tab PO BID 05/14/16 Family Disease History - Family Disease History Family Disease History: Other: Father (parkinson's disease) Review of Systems - Review of Systems Constitutional: reports: No Symptoms Eyes: reports: No Symptoms HENT: reports: No Symptoms Neck: reports: No Symptoms Cardiovascular: reports: Edema Respiratory: reports: SOB Gastrointestinal: reports: No Symptoms Genitourinary: reports: No Symptoms Breasts: reports: No Symptoms Reported Musculoskeletal: reports: No Symptoms Integumentary: reports: No Symptoms Neurological: reports: No Symptoms Endocrine: reports: No Symptoms Hematology/Lymphatic: reports: No Symptoms Psychiatric: reports: No Symptoms Vital Signs: Vital Signs Temperature 99 F 05/14/16 18:00 Pulse Rate 74 05/14/16 18:00 Respiratory Rate 18 05/14/16 18:00 Blood Pressure 105/60 05/14/16 18:00 O2 Sat by Pulse Oximetry (%) 94 L 05/14/16 13:55 Constitutional: Yes: Well Nourished, No Distress, Calm Eyes: Yes: WNL, Conjunctiva Clear, EOM Intact HENT: Yes: WNL, Atraumatic, Normocephalic Neck: Yes: WNL, Supple, Trachea Midline Respiratory: Yes: CTA Bilaterally, Intubated, Mechanically Ventilated Gastrointestinal: Yes: WNL, Normal Bowel Sounds Renal/: Yes: WNL Cardiovascular: Yes: WNL, Regular Rate and Rhythm Musculoskeletal: Yes: WNL Extremities: Yes: WNL Integumentary: Yes: WNL Neurological: Yes: WNL, Alert, Oriented ...Motor Strength: WNL Psychiatric: Yes: WNL, Alert, Oriented - Other Data Labs, Other Data: INR, PTT INR 1.07 (0.82-1.09) 05/14/16 09:41 Laboratory Results - last 24 hr 05/14/16 05/14/16 05/14/16 09:00 09:00 09:00 WBC 11.0 H RBC 3.09 L Hgb 8.1 L Hct 27.1 L MCV 87.8 MCHC 30.0 L RDW 17.6 H Plt Count 252 D MPV 7.4 L Neutrophils % 77.8 Lymphocytes % 8.8 D Monocytes % 6.6 Eosinophils % 6.2 H Basophils % 0.6 INR Cancelled PTT (Actin FS) Cancelled Anticoagulation Therapy Puncture Site ABG pH ABG pCO2 at Pt Temp ABG pO2 at Pt Temp ABG HCO3 ABG O2 Sat (Measured) ABG O2 Content ABG Base Excess Issac Test VBG pH POC VBG pCO2 POC VBG pO2 Carboxyhemoglobin Methemoglobin O2 Delivery Device Oxygen Flow Rate Vent Mode Vent Rate Mechanical Rate PEEP Pressure Support Vent Sodium 144 Potassium 4.5 Chloride 99 Carbon Dioxide 34 H Anion Gap 11 BUN 24 H D Creatinine 2.0 H Creat Clearance w eGFR 32.92 Random Glucose 80 D Lactic Acid Calcium 8.2 L Total Bilirubin 0.4 D AST 20 D ALT 7 L Alkaline Phosphatase 125 H D Creatine Kinase 26 L Troponin I < 0.02 Total Protein 5.7 L Albumin 2.3 L Urine Color Urine Appearance Urine pH Ur Specific [place] Urine Protein Urine Glucose (UA) Urine Ketones Urine Blood Urine Nitrite Urine Bilirubin Urine Urobilinogen Ur Leukocyte Esterase Urine RBC Urine WBC Ur Epithelial Cells Urine Bacteria Urine Mucus Urine Yeast Blood Type Antibody Screen Crossmatch 05/14/16 05/14/16 05/14/16 09:00 09:00 09:30 WBC RBC Hgb Hct MCV MCHC RDW Plt Count MPV Neutrophils % Lymphocytes % Monocytes % Eosinophils % Basophils % INR PTT (Actin FS) Anticoagulation Therapy Puncture Site ABG pH ABG pCO2 at Pt Temp ABG pO2 at Pt Temp ABG HCO3 ABG O2 Sat (Measured) ABG O2 Content ABG Base Excess Issac Test VBG pH 7.38 D POC VBG pCO2 41.0 D POC VBG pO2 21.3 L D Carboxyhemoglobin Methemoglobin O2 Delivery Device Oxygen Flow Rate Vent Mode Vent Rate Mechanical Rate PEEP Pressure Support Vent Sodium Potassium Chloride Carbon Dioxide Anion Gap BUN Creatinine Creat Clearance w eGFR Random Glucose Lactic Acid 1.347 Calcium Total Bilirubin AST ALT Alkaline Phosphatase Creatine Kinase Troponin I Total Protein Albumin Urine Color Urine Appearance Urine pH Ur Specific [place] Urine Protein Urine Glucose (UA) Urine Ketones Urine Blood Urine Nitrite Urine Bilirubin Urine Urobilinogen Ur Leukocyte Esterase Urine RBC Urine WBC Ur Epithelial Cells Urine Bacteria Urine Mucus Urine Yeast Blood Type A POSITIVE Antibody Screen Negative Crossmatch See Detail 05/14/16 05/14/16 05/14/16 09:41 10:02 12:01 WBC RBC Hgb Hct MCV MCHC RDW Plt Count MPV Neutrophils % Lymphocytes % Monocytes % Eosinophils % Basophils % INR 1.07 PTT (Actin FS) 35.1 H Anticoagulation Therapy Y Puncture Site Right brachial ABG pH 7.26 L D ABG pCO2 at Pt Temp 79.2 H* D ABG pO2 at Pt Temp 38.2 L* D ABG HCO3 34.0 H ABG O2 Sat (Measured) 59.3 L* ABG O2 Content 6.5 L* ABG Base Excess 6.1 H Issac Test Positive VBG pH POC VBG pCO2 POC VBG pO2 Carboxyhemoglobin 1.5 Methemoglobin 1.4 O2 Delivery Device Aerosal tx Oxygen Flow Rate 7.0lpm Vent Mode Y Vent Rate Y Mechanical Rate Y PEEP 0.0 Pressure Support Vent Y Sodium Potassium Chloride Carbon Dioxide Anion Gap BUN Creatinine Creat Clearance w eGFR Random Glucose Lactic Acid Calcium Total Bilirubin AST ALT Alkaline Phosphatase Creatine Kinase Troponin I Total Protein Albumin Urine Color Yellow Urine Appearance Turbid Urine pH 5.0 Ur Specific [place] 1.013 Urine Protein 2+ H Urine Glucose (UA) Negative Urine Ketones Negative Urine Blood 1+ H Urine Nitrite Negative Urine Bilirubin Negative Urine Urobilinogen Negative Ur Leukocyte Esterase 3+ H Urine RBC 5 Urine WBC 1013 Ur Epithelial Cells Rare Urine Bacteria Rare Urine Mucus Rare Urine Yeast Many Blood Type Antibody Screen Crossmatch 05/14/16 14:00 WBC RBC Hgb Hct MCV MCHC RDW Plt Count MPV Neutrophils % Lymphocytes % Monocytes % Eosinophils % Basophils % INR PTT (Actin FS) Anticoagulation Therapy Puncture Site Left radial ABG pH 7.38 ABG pCO2 at Pt Temp 54.8 H D ABG pO2 at Pt Temp 72.3 D ABG HCO3 31.3 H ABG O2 Sat (Measured) 94.4 ABG O2 Content 10.0 L ABG Base Excess 5.8 H Issac Test Positive VBG pH POC VBG pCO2 POC VBG pO2 Carboxyhemoglobin Methemoglobin O2 Delivery Device Mech vent Oxygen Flow Rate 50% Vent Mode A/c Vent Rate 18 Mechanical Rate Yes PEEP 5.0 Pressure Support Vent 500 Sodium Potassium Chloride Carbon Dioxide Anion Gap BUN Creatinine Creat Clearance w eGFR Random Glucose Lactic Acid Calcium Total Bilirubin AST ALT Alkaline Phosphatase Creatine Kinase Troponin I Total Protein Albumin Urine Color Urine Appearance Urine pH Ur Specific [place] Urine Protein Urine Glucose (UA) Urine Ketones Urine Blood Urine Nitrite Urine Bilirubin Urine Urobilinogen Ur Leukocyte Esterase Urine RBC Urine WBC Ur Epithelial Cells Urine Bacteria Urine Mucus Urine Yeast Blood Type Antibody Screen Crossmatch Imaging - Results Chest X-ray: Image Reviewed EKG: Image Reviewed (sr RBBB) Problem List - Problems (1) Acute exacerbation of chronic obstructive pulmonary disease (COPD) Code(s): J44.1 - CHRONIC OBSTRUCTIVE PULMONARY DISEASE W (ACUTE) EXACERBATION (2) Pneumonia Code(s): J18.9 - PNEUMONIA, UNSPECIFIED ORGANISM Qualifiers: (3) Shortness of breath Code(s): R06.02 - SHORTNESS OF BREATH (4) Acute and chronic respiratory failure ([id number]) Code(s): J96.20 - ACUTE AND CHR RESP FAILURE, UNSP W HYPOXIA OR HYPERCAPNIA Qualifiers: Respiratory failure complication: hypoxia and hypercapnia Qualified Code(s): J96.21 - Acute and chronic respiratory failure with hypoxia (5) Acute kidney failure Code(s): N17.9 - ACUTE KIDNEY FAILURE, UNSPECIFIED Qualifiers: Acute renal failure type: unspecified Qualified Code(s): N17.9 - Acute kidney failure, unspecified (6) Acute on chronic diastolic (congestive) heart failure Code(s): I50.33 - ACUTE ON CHRONIC DIASTOLIC (CONGESTIVE) HEART FAILURE (7) Anemia Code(s): D64.9 - ANEMIA, UNSPECIFIED (8) Anxiety and depression Code(s): F41.9 - ANXIETY DISORDER, UNSPECIFIED F32.9 - MAJOR DEPRESSIVE DISORDER, SINGLE EPISODE, UNSPECIFIED (9) Aortic aneurysm Code(s): I71.9 - AORTIC ANEURYSM OF UNSPECIFIED SITE, WITHOUT RUPTURE (10) Aortic aneurysm, intrathoracic Code(s): I71.2 - THORACIC AORTIC ANEURYSM, WITHOUT RUPTURE (11) Arteriosclerotic heart disease (ASHD) Code(s): I25.10 - ATHSCL HEART DISEASE OF [place] CORONARY ARTERY W/O ANG PCTRS (12) CAD (coronary artery disease) Code(s): I25.10 - ATHSCL HEART DISEASE OF [place] CORONARY ARTERY W/O ANG PCTRS (13) Chronic kidney disease (CKD) stage G3a/A2, moderately decreased glomerular filtration rate (GFR) between 45-59 mL/min/1.73 square meter and albuminuria creatinine ratio between 30-299 mg/g Code(s): N18.3 - CHRONIC KIDNEY DISEASE, STAGE 3 (MODERATE) (14) Chronic renal insufficiency Code(s): N18.9 - CHRONIC KIDNEY DISEASE, UNSPECIFIED (15) Dysphagia Code(s): R13.10 - DYSPHAGIA, UNSPECIFIED (16) H/O right coronary artery stent placement Code(s): Z95.5 - PRESENCE OF CORONARY ANGIOPLASTY IMPLANT AND GRAFT (17) Hematoma Code(s): T14.8 - OTHER INJURY OF UNSPECIFIED BODY REGION (18) History of coronary artery stent placement Code(s): Z95.5 - PRESENCE OF CORONARY ANGIOPLASTY IMPLANT AND GRAFT (19) Hyperlipidemia Code(s): E78.5 - HYPERLIPIDEMIA, UNSPECIFIED (20) Hypertension Code(s): I10 - ESSENTIAL (PRIMARY) HYPERTENSION (21) Left hip pain Code(s): M25.552 - PAIN IN LEFT HIP (22) NSTEMI (non-ST elevated myocardial infarction) Code(s): I21.4 - NON-ST ELEVATION (NSTEMI) MYOCARDIAL INFARCTION (23) Non-alcoholic fatty liver disease Code(s): K76.0 - FATTY (CHANGE OF) LIVER, NOT ELSEWHERE CLASSIFIED (24) Noncompliance with CPAP treatment Code(s): Z91.14 - PATIENT'S OTHER NONCOMPLIANCE WITH MEDICATION REGIMEN (25) Obesities, morbid Code(s): E66.01 - MORBID (SEVERE) OBESITY DUE TO EXCESS CALORIES Qualifiers: Obesity type: with alveolar hypoventilation Qualified Code(s): E66.2 - Morbid (severe) obesity with alveolar hypoventilation (26) Obstructive sleep apnea Code(s): G47.33 - OBSTRUCTIVE SLEEP APNEA (ADULT) (PEDIATRIC) (27) Occluded PICC line Code(s): T82.898A - OTH COMPLICATION OF VASCULAR PROSTH DEV/GRFT, INIT (28) Oropharyngeal dysphagia Code(s): R13.12 - DYSPHAGIA, OROPHARYNGEAL PHASE (29) Pancreatitis Code(s): K85.9 - ACUTE PANCREATITIS, UNSPECIFIED * DO NOT USE * (30) Regurgitation Code(s): R11.10 - VOMITING, UNSPECIFIED (31) Renal failure (ARF), acute on chronic Code(s): N17.9 - ACUTE KIDNEY FAILURE, UNSPECIFIED N18.9 - CHRONIC KIDNEY DISEASE, UNSPECIFIED (32) Renal insufficiency Code(s): N28.9 - DISORDER OF KIDNEY AND URETER, UNSPECIFIED (33) Respiratory distress Code(s): R06.00 - DYSPNEA, UNSPECIFIED (34) Respiratory failure with hypoxia and hypercapnia Code(s): J96.91 - RESPIRATORY FAILURE, UNSPECIFIED WITH HYPOXIA J96.92 - RESPIRATORY FAILURE, UNSPECIFIED WITH HYPERCAPNIA Qualifiers: Chronicity: acute on chronic Qualified Code(s): J96.21 - Acute and chronic respiratory failure with hypoxia; J96.22 - Acute and chronic respiratory failure with hypercapnia (35) Screening for colorectal cancer Code(s): Z12.11 - ENCOUNTER FOR SCREENING FOR MALIGNANT NEOPLASM OF COLON Z12.12 - ENCOUNTER FOR SCREENING FOR MALIGNANT NEOPLASM OF RECTUM (36) Sleep apnea Code(s): G47.30 - SLEEP APNEA, UNSPECIFIED (37) Sleep apnea in adult Code(s): G47.33 - OBSTRUCTIVE SLEEP APNEA (ADULT) (PEDIATRIC) (38) Stage 1 skin ulcer of sacral region Code(s): L89.151 - PRESSURE ULCER OF SACRAL REGION, STAGE 1 (39) Tachypnea Code(s): R06.82 - TACHYPNEA, NOT ELSEWHERE CLASSIFIED (40) Volume overload Code(s): E87.70 - FLUID OVERLOAD, UNSPECIFIED Qualifiers: Hypervolemia type: other Qualified Code(s): E87.79 - Other fluid overload (41) COPD (chronic obstructive pulmonary disease) Code(s): J44.9 - CHRONIC OBSTRUCTIVE PULMONARY DISEASE, UNSPECIFIED (42) Chronic combined systolic and diastolic CHF, NYHA class 4 Code(s): I50.42 - CHRONIC COMBINED SYSTOLIC AND DIASTOLIC HRT FAIL (43) Chronic kidney disease (CKD) Code(s): N18.9 - CHRONIC KIDNEY DISEASE, UNSPECIFIED Qualifiers: Chronic kidney disease stage: unspecified stage Qualified Code(s): N18.9 - Chronic kidney disease, unspecified (44) Congestive heart failure Code(s): I50.9 - HEART FAILURE, UNSPECIFIED (45) Diabetes Code(s): E11.9 - TYPE 2 DIABETES MELLITUS WITHOUT COMPLICATIONS Qualifiers: Diabetes mellitus type: type 2 Diabetes mellitus complication status: with kidney complications Diabetes mellitus complication detail: with chronic kidney disease (46) Diastolic CHF Code(s): I50.30 - UNSPECIFIED DIASTOLIC (CONGESTIVE) HEART FAILURE (47) Diastolic heart failure Code(s): I50.30 - UNSPECIFIED DIASTOLIC (CONGESTIVE) HEART FAILURE (48) Diastolic heart failure of unknown etiology Code(s): I50.30 - UNSPECIFIED DIASTOLIC (CONGESTIVE) HEART FAILURE Assessment/Plan Respiratory failure htn morbid obesity ashd edema sepsis uti copd cri Plan supportive rx cardiac [facility] stable monitor bp cont cardiac meds dvt plx
[2016-05-14 21:18] LABS: MCH 26.4 pg (25.7-33.7); MCHC 30.7 g/dl (32.0-35.9); MEAN CELL VOLUME 85.8 fl (80-96); PLATELET COUNT 210 K/MM3 (134-434); RDW 17.6 % (11.9-15.9); WHITE BLOOD COUNT 7.9 K/mm3 (4.0-10.0)
--- NOTE | 2016-05-14 21:38 | EKG ---
Test Reason : Blood Pressure : / mmHG Vent. Rate : 095 BPM Atrial Rate : 095 BPM P-R Int : 162 ms QRS Dur : 152 ms QT Int : 392 ms P-R-T Axes : 018 032 005 degrees QTc Int : 492 ms POOR DATA QUALITY, INTERPRETATION MAY BE ADVERSELY AFFECTED LIKELY NORMAL SINUS RHYTHM WITH SINUS ARRHYTHMIA RIGHT BUNDLE BRANCH BLOCK ABNORMAL ECG WHEN COMPARED WITH ECG OF 25-APR-2016 19:21, NO SIGNIFICANT CHANGE WAS FOUND Confirmed by ANALY GARCIA MD (2016) on 05/14/2016 9:38:28 PM Referred By: Confirmed By:ANALY GARCIA MD
[2016-05-14 21:40] LABS: ALBUMIN 2.1 g/dl (3.4-5.0); BILIRUBIN,TOTAL 0.3 mg/dL (0.2-1.0); CALCIUM 7.7 mg/dL (8.5-10.1); CREATININE 2.3 mg/dL (0.7-1.3); MAGNESIUM 2.5 mg/dL (1.8-2.4); PHOSPHOROUS 3.5 mg/dL (2.5-4.9); TOT PROT 5.1 g/dl (6.4-8.2)
[2016-05-14] MEDS ORDERED: DOCUSATE SODIUM 100 MG CAPSULE (FP) PO SCH (22:00)
[2016-05-14] MEDS ORDERED: FERROUS SO4 325 MG TABLET (FP) PO SCH (22:00)
[2016-05-14] MEDS ORDERED: MIRTAZAPINE 15 MG TABLET (FP) PO SCH (22:00)
[2016-05-14] MEDS: FENTANYL INJECTION 500 MCG in DEXTROSE 5%-WATER - 90 ML IJ SCH (22:15)
[2016-05-14] MEDS: FLUTICASONE/SALMETEROL 100 MCG/50 MCG DISKUS IH SCH (22:15)
[2016-05-14] MEDS: HEPARIN NA (PORCINE) 5,000 UNITS/ML 1ML VIAL SQ SCH (22:16)
[2016-05-14] MEDS: MUPIROCIN 2% TOPICAL OINTMENT FOR DECOLONIZATION NS SCH (22:16)
[2016-05-14] MEDS: AZTREONAM 1 GM in DEXTROSE 5%-WATER - 50 ML IVPB SCH (22:16)
[2016-05-14] MEDS: CHLORHEXIDINE GLUCONATE 4% CLEANSER FOR DECOLONIZATION TP SCH (22:17)
[2016-05-14] MEDS: ALBUTEROL SO4 2.5/IPRATROPIUM 0.5 INH SOL 3 ML VIAL.NEB. NEB SCH (22:35)
[2016-05-15] MEDS: methylPREDNISolone NA SUCC 40 MG/1 ML VIAL IVPB SCH ×2 (01:55→09:06)
[2016-05-15] MEDS: HEPARIN NA (PORCINE) 5,000 UNITS/ML 1ML VIAL SQ SCH ×3 (06:14→21:09)
[2016-05-15 06:24] LABS: ALBUMIN 2.2 g/dl (3.4-5.0); ANION GAP 13 (8-16); BILIRUBIN,TOTAL 0.5 mg/dL (0.2-1.0); CALCIUM 8.1 mg/dL (8.5-10.1); CO2 29 mmol/L (21-32); CREATININE 2.5 mg/dL (0.7-1.3); GLUCOSE,RANDOM 156 mg/dL (74-106); MAGNESIUM 2.5 mg/dL (1.8-2.4); PHOSPHOROUS 3.9 mg/dL (2.5-4.9); SGPT/ALT < 6 U/L (12-78)
[2016-05-15 06:27] LABS: ALK PHOS 104 U/L (45-117); BASOPHIL 0.1 % (0-2.0); MCH 26.8 pg (25.7-33.7); MCHC 31.4 g/dl (32.0-35.9); MEAN CELL VOLUME 85.4 fl (80-96); MEAN PLT VOLUME 7.3 fl (7.5-11.1); NEUTROPHILS 90.8 % (42.8-82.8); PLATELET COUNT 215 K/MM3 (134-434); RDW 16.8 % (11.9-15.9); SGOT/AST 12 U/L (15-37); WHITE BLOOD COUNT 9.5 K/mm3 (4.0-10.0)
[2016-05-15] MEDS: ALBUTEROL SO4 2.5/IPRATROPIUM 0.5 INH SOL 3 ML VIAL.NEB. NEB SCH ×3 (06:30→22:35)
[2016-05-15 07:35] LABS: ARTERIAL BLD GAS O2 SATURATION 98.5 % (90-98.9); ARTERIAL BLOOD GAS BASE EXCESS 5.4 meq/l (-2-2)
[2016-05-15 07:37] LABS: ALLENS TEST POSITIVE; ART PUNCT SITE LEFT RADIAL; LPM/O2% 35; MECH. VENT. YES; PT. ON O2? YES; TYPE OF O2 VENT; VENT RATE 18; VT/PRESS 475
[2016-05-15 07:38] LABS: ARTERIAL BLOOD GAS pH 7.48 (7.35-7.45)
[2016-05-15] MEDS ORDERED: TAMSULOSIN HCL 0.4 MG CAP.ER.24H (FP) PO SCH (08:30)
[2016-05-15] MEDS ORDERED: PT OWN MED DRAWER 7, Y5N ONE ×3 (09:04→20:39)
[2016-05-15] MEDS: FUROSEMIDE 40 MG/4 ML INJECTABLE VIAL IVPB SCH (09:06)
[2016-05-15] MEDS: PANTOPRAZOLE SODIUM 100 ML IVPB SCH (09:06)
[2016-05-15] MEDS: AZTREONAM 1 GM in DEXTROSE 5%-WATER - 50 ML IVPB SCH ×2 (09:06→21:13)
[2016-05-15] MEDS ORDERED: TORSEMIDE 20 MG TABLET (FP) PO SCH ×2 (10:00)
[2016-05-15] MEDS ORDERED: ASPIRIN 300 MG SUPP.RECT RC SCH (10:00)
[2016-05-15] MEDS ORDERED: POLYETHYLENE GLYCOL 3350 119 GM BTL PO SCH (10:00)
[2016-05-15] MEDS ORDERED: amLODIPine BESYLATE 10 MG TABLET (FP) PO SCH (10:00)
[2016-05-15] MEDS ORDERED: PREGABALIN 25 MG CAPSULE PO PRN (10:00)
[2016-05-15] MEDS ORDERED: PANTOPRAZOLE 40 MG TABLET (FP) PO SCH (10:00)
[2016-05-15] MEDS ORDERED: PRASUGREL HCL 10 MG TAB PO SCH (10:00)
[2016-05-15] MEDS ORDERED: ASPIRIN COATED 81 MG TABLET.EC PO SCH (10:00)
[2016-05-15] MEDS ORDERED: predniSONE 10 MG TABLET (UD) PO SCH (10:00)
[2016-05-15] MEDS ORDERED: SENNOSIDES 8.6MG TABLET (FP) PO SCH (10:00)
--- NOTE | 2016-05-15 10:04 | PN ---
Progress Note, Physician History of Present Illness: Pt transferred forom SNF because of respiratory failure. Pt intubated after failing BIPAP. Pt hx is significant for steroid dependent COPD, CAD (S/P stent) , CHF,.acute on chronic renal failure in February and 2015 complicated by MRSA sepsis. Pt required dialysis for several weeks to relieve massive fluid retention. - Current Medication List Current Medications: Active Medications Albuterol Sulfate (Ventolin 0.083% Nebulizer Soln -) 1 amp NEB Q6H PRN PRN Reason: SHORT OF BREATH/WHEEZING Albuterol/Ipratropium (Duoneb -) 1 amp NEB TIDR [facility] Last Admin: 05/15/16 06:30 Dose: 1 amp Aspirin (Asa -) 300 mg RC DAILY [facility] Chlorhexidine Gluconate (Hibiclens For Decolonization -) 1 applic TP HS [facility] Last Admin: 05/14/16 22:17 Dose: 1 applic Epoetin Keith (Procrit -) 10,000 unit SQ MOWEFR@1000 [facility] Furosemide (Lasix Injection -) 40 mg IVPB DAILY [facility] Last Admin: 05/15/16 09:06 Dose: 40 mg Heparin Sodium (Porcine) (Heparin -) 5,000 unit SQ TID [facility] Last Admin: 05/15/16 06:14 Dose: 5,000 unit Propofol (Diprivan -) 100 mls @ 3.062 mls/hr IVPB TITR ONE; 5 MCG/KG/MIN PRN Reason: Protocol Stop: 05/15/16 21:34 Last Titration: 05/14/16 19:00 Dose: 20 mcg/kg/min Aztreonam 1 gm/ Dextrose 50 mls @ 100 mls/hr IVPB BID [facility] Last Admin: 05/15/16 09:06 Dose: 100 mls/hr Pantoprazole Sodium (Protonix 40mg Ivpb (Pre-Docked)) 100 mls @ 200 mls/hr IVPB DAILY [facility] Last Admin: 05/15/16 09:06 Dose: 200 mls/hr Fentanyl 500 mcg/ Dextrose 100 mls @ 5 mls/hr IJ TITR [facility] PRN Reason: 25 MCG/HR Last Admin: 05/14/16 22:15 Dose: 5 mls/hr Methylprednisolone Sodium Succinate (Solu-Medrol -) 40 mg IVPB Q8H-IV [facility] Last Admin: 05/15/16 09:06 Dose: 40 mg Mupirocin (Bactroban Ointment (For Decolonization) -) 1 applic NS BID [facility] Stop: 05/19/16 21:59 Last Admin: 05/14/16 22:16 Dose: 1 applic Nystatin (Nystop Powder -) 1 applic TP DAILY [facility] Prednisone (Deltasone -) 30 mg PO DAILY [facility] Fluticasone/Salmeterol (Advair 100mcg/50mcg -) 1 puff IH BID [facility] Last Admin: 05/14/16 22:15 Dose: Not Given Vancomycin HCl (Vancomycin (Pre-Docked)) 1,000 mg IVPB Q48H [facility] Last Admin: 05/14/16 18:06 Dose: Not Given - Objective Vital Signs: Vital Signs Temperature 98.2 F 05/15/16 06:00 Pulse Rate 75 05/15/16 09:43 Respiratory Rate 18 05/15/16 09:43 Blood Pressure 109/52 05/15/16 09:43 O2 Sat by Pulse Oximetry (%) 95 05/15/16 06:05 Constitutional: Yes: No Distress HENT: Yes: Atraumatic, Normocephalic Neck: Yes: Supple, Trachea Midline Cardiovascular: Yes: Regular Rate and Rhythm. No: JVD Respiratory: Yes: CTA Bilaterally Gastrointestinal: Yes: Soft Extremities: No: Calf Tenderness Edema: Yes Edema: LLE: 1+, RLE: 1+ Neurological: Yes: Other (on respirator) Labs: CBC, BMP 05/15/16 05:30 05/15/16 05:30 INR, PTT INR 1.07 (0.82-1.09) 05/14/16 09:41 - ....Imaging Chest X-ray: Report Reviewed, Image Reviewed (pulmonary congestion improved post intubation) Problem List - Problems (1) Acute and chronic respiratory failure ([id number]) Code(s): J96.20 - ACUTE AND CHR RESP FAILURE, UNSP W HYPOXIA OR HYPERCAPNIA Qualifiers: Respiratory failure complication: hypoxia and hypercapnia Qualified Code(s): J96.21 - Acute and chronic respiratory failure with hypoxia (2) Congestive heart failure Code(s): I50.9 - HEART FAILURE, UNSPECIFIED (3) Renal insufficiency Code(s): N28.9 - DISORDER OF KIDNEY AND URETER, UNSPECIFIED (4) Acute exacerbation of chronic obstructive pulmonary disease (COPD) Code(s): J44.1 - CHRONIC OBSTRUCTIVE PULMONARY DISEASE W (ACUTE) EXACERBATION Assessment/Plan Respiratory failure secondary to a combination of AECOPD and CHF. R/O pneumonia. Renal Insufficiency. A large factor in pt's deterioration is CHF. In addition to respiratory support suggest further invstigation and treatment of pt's CAD and CHF Plan: Respirator support Cardiology evaluation Antibiotics per I.D. Inhaled bronchodilators Diuresis IV steroids Weaning attempts
[2016-05-15] MEDS ORDERED: PROPOFOL 100 ML ONE (10:24)
--- NOTE | 2016-05-15 12:40 | PN ---
Teaching Attending Note Name of Resident: Lambert Ventura ATTENDING PHYSICIAN STATEMENT I saw and evaluated the patient. I reviewed the resident's note and discussed the case with the resident. I agree with the resident's findings and plan as documented. SUBJECTIVE: Patient seen and examined in the ICU. Remains intubated and sedated. AC Mode of vent, 35% FiO2. No pressors. CXR: Residual right congestion / I suspect a skin fold and not a PTX Intake & Output 05/12/16 05/13/16 05/14/16 05/15/16 23:59 23:59 23:59 23:59 Intake Total 490 112 Output Total 100 100 Balance 390 12 Weight 225 lb 223 lb 14.4 oz Last Vital Signs Temp Pulse Resp BP Pulse Ox 98.4 F 70 18 112/54 99 05/15/16 10:00 05/15/16 12:00 05/15/16 12:00 05/15/16 12:00 05/15/16 10:25 Active Medications Albuterol Sulfate (Ventolin 0.083% Nebulizer Soln -) 1 amp NEB Q6H PRN PRN Reason: SHORT OF BREATH/WHEEZING Albuterol/Ipratropium (Duoneb -) 1 amp NEB TIDR [facility] Last Admin: 05/15/16 06:30 Dose: 1 amp Aspirin (Asa -) 300 mg RC DAILY [facility] Chlorhexidine Gluconate (Hibiclens For Decolonization -) 1 applic TP HS [facility] Last Admin: 05/14/16 22:17 Dose: 1 applic Epoetin Keith (Procrit -) 10,000 unit SQ MOWEFR@1000 [facility] Furosemide (Lasix Injection -) 40 mg IVPB DAILY [facility] Last Admin: 05/15/16 09:06 Dose: 40 mg Heparin Sodium (Porcine) (Heparin -) 5,000 unit SQ TID [facility] Last Admin: 05/15/16 06:14 Dose: 5,000 unit Propofol (Diprivan -) 100 mls @ 3.062 mls/hr IVPB TITR ONE; 5 MCG/KG/MIN PRN Reason: Protocol Stop: 05/15/16 21:34 Last Titration: 05/14/16 19:00 Dose: 20 mcg/kg/min Aztreonam 1 gm/ Dextrose 50 mls @ 100 mls/hr IVPB BID [facility] Last Admin: 05/15/16 09:06 Dose: 100 mls/hr Pantoprazole Sodium (Protonix 40mg Ivpb (Pre-Docked)) 100 mls @ 200 mls/hr IVPB DAILY [facility] Last Admin: 05/15/16 09:06 Dose: 200 mls/hr Fentanyl 500 mcg/ Dextrose 100 mls @ 5 mls/hr IJ TITR [facility] PRN Reason: 25 MCG/HR Last Admin: 05/14/16 22:15 Dose: 5 mls/hr Methylprednisolone Sodium Succinate (Solu-Medrol -) 40 mg IVPB Q8H-IV [facility] Last Admin: 05/15/16 09:06 Dose: 40 mg Mupirocin (Bactroban Ointment (For Decolonization) -) 1 applic NS BID [facility] Stop: 05/19/16 21:59 Last Admin: 05/14/16 22:16 Dose: 1 applic Nystatin (Nystop Powder -) 1 applic TP DAILY [facility] Prednisone (Deltasone -) 30 mg PO DAILY [facility] Fluticasone/Salmeterol (Advair 100mcg/50mcg -) 1 puff IH BID [facility] Last Admin: 05/14/16 22:15 Dose: Not Given Vancomycin HCl (Vancomycin (Pre-Docked)) 1,000 mg IVPB Q48H [facility] Last Admin: 05/14/16 18:06 Dose: Not Given Constitutional: Yes: Intubated and sedated Eyes: Yes: WNL HENT: Yes: Atraumatic, Normocephalic Neck: Yes: Supple, Trachea Midline Cardiovascular: Yes: Pulse Irregular Respiratory: Yes: Diminished, Intubated, Mechanically Ventilated, Rhonchi Gastrointestinal: Yes: Soft, Abdomen, Obese Extremities: Yes: Cool Edema: Yes Edema: LLE: 1+, RLE: 1+ Peripheral Pulses WNL: Yes Integumentary: Yes: WNL Labs: Laboratory Results - last 24 hr 05/14/16 05/14/16 05/14/16 09:00 09:00 09:30 WBC RBC Hgb Hct MCV MCHC RDW Plt Count MPV Neutrophils % Lymphocytes % Monocytes % Eosinophils % Basophils % Anticoagulation Therapy Puncture Site ABG pH ABG pCO2 at Pt Temp ABG pO2 at Pt Temp ABG HCO3 ABG O2 Sat (Measured) ABG O2 Content ABG Base Excess Issac Test VBG pH 7.38 D POC VBG pCO2 41.0 D POC VBG pO2 21.3 L D Carboxyhemoglobin Methemoglobin O2 Delivery Device Oxygen Flow Rate Vent Mode Vent Rate Mechanical Rate PEEP Pressure Support Vent Sodium Potassium Chloride Carbon Dioxide Anion Gap BUN Creatinine Creat Clearance w eGFR Random Glucose Lactic Acid 1.347 Calcium Phosphorus Magnesium Total Bilirubin AST ALT Alkaline Phosphatase Total Protein Albumin Blood Type A POSITIVE Antibody Screen Negative Crossmatch See Detail 05/14/16 05/14/16 05/14/16 12:01 14:00 21:08 WBC 7.9 RBC 2.71 L Hgb 7.2 L D Hct 23.3 L MCV 85.8 MCHC 30.7 L RDW 17.6 H Plt Count 210 MPV 7.0 L Neutrophils % Lymphocytes % Monocytes % Eosinophils % Basophils % Anticoagulation Therapy Y Puncture Site Right brachial Left radial ABG pH 7.26 L D 7.38 ABG pCO2 at Pt Temp 79.2 H* D 54.8 H D ABG pO2 at Pt Temp 38.2 L* D 72.3 D ABG HCO3 34.0 H 31.3 H ABG O2 Sat (Measured) 59.3 L* 94.4 ABG O2 Content 6.5 L* 10.0 L ABG Base Excess 6.1 H 5.8 H Issac Test Positive Positive VBG pH POC VBG pCO2 POC VBG pO2 Carboxyhemoglobin 1.5 Methemoglobin 1.4 O2 Delivery Device Aerosal tx Mech vent Oxygen Flow Rate 7.0lpm 50% Vent Mode Y A/c Vent Rate Y 18 Mechanical Rate Y Yes PEEP 0.0 5.0 Pressure Support Vent Y 500 Sodium Potassium Chloride Carbon Dioxide Anion Gap BUN Creatinine Creat Clearance w eGFR Random Glucose Lactic Acid Calcium Phosphorus Magnesium Total Bilirubin AST ALT Alkaline Phosphatase Total Protein Albumin Blood Type Antibody Screen Crossmatch 05/14/16 05/15/16 05/15/16 21:08 05:30 05:30 WBC 9.5 RBC 2.97 L Hgb 8.0 L D Hct 25.4 L MCV 85.4 MCHC 31.4 L RDW 16.8 H Plt Count 215 MPV 7.3 L Neutrophils % 90.8 H Lymphocytes % 7.0 L D Monocytes % 2.1 L Eosinophils % 0.0 D Basophils % 0.1 Anticoagulation Therapy Puncture Site ABG pH ABG pCO2 at Pt Temp ABG pO2 at Pt Temp ABG HCO3 ABG O2 Sat (Measured) ABG O2 Content ABG Base Excess Issac Test VBG pH POC VBG pCO2 POC VBG pO2 Carboxyhemoglobin Methemoglobin O2 Delivery Device Oxygen Flow Rate Vent Mode Vent Rate Mechanical Rate PEEP Pressure Support Vent Sodium 142 141 Potassium 4.4 4.4 Chloride 98 99 Carbon Dioxide 31 29 Anion Gap 13 13 BUN 29 H D 34 H Creatinine 2.3 H 2.5 H Creat Clearance w eGFR 28.01 25.44 Random Glucose 139 H D 156 H Lactic Acid Calcium 7.7 L 8.1 L Phosphorus 3.5 3.9 Magnesium 2.5 H 2.5 H Total Bilirubin 0.3 D 0.5 D AST 13 L D 12 L ALT 6 L < 6 L Alkaline Phosphatase 109 104 Total Protein 5.1 L 5.0 L Albumin 2.1 L 2.2 L Blood Type Antibody Screen Crossmatch 05/15/16 07:15 WBC RBC Hgb Hct MCV MCHC RDW Plt Count MPV Neutrophils % Lymphocytes % Monocytes % Eosinophils % Basophils % Anticoagulation Therapy Puncture Site Left radial ABG pH 7.48 H ABG pCO2 at Pt Temp 39.6 D ABG pO2 at Pt Temp 106.0 H D ABG HCO3 29.0 H ABG O2 Sat (Measured) 98.5 ABG O2 Content 10.7 L ABG Base Excess 5.4 H Issac Test Positive VBG pH POC VBG pCO2 POC VBG pO2 Carboxyhemoglobin Methemoglobin O2 Delivery Device Vent Oxygen Flow Rate 35 Vent Mode A/c Vent Rate 18 Mechanical Rate Yes PEEP 5.0 Pressure Support Vent 475 Sodium Potassium Chloride Carbon Dioxide Anion Gap BUN Creatinine Creat Clearance w eGFR Random Glucose Lactic Acid Calcium Phosphorus Magnesium Total Bilirubin AST ALT Alkaline Phosphatase Total Protein Albumin Blood Type Antibody Screen Crossmatch Assessment/Plan Hypoxemic/hypercapnic respiratory failure Sepsis - PNA, UTI COPD CHF CKD -Mechanical ventilation - daily SBT -Abx per ID -> consider de-escalate or stop -Nebs -Prednisone -> D/C IV Medrol -Diuresis -GI and DVT PPx Dr Vasquez CCTime 35"
[2016-05-15] MEDS: FLUTICASONE/SALMETEROL 100 MCG/50 MCG DISKUS IH SCH (13:58)
[2016-05-15] MEDS: MUPIROCIN 2% TOPICAL OINTMENT FOR DECOLONIZATION NS SCH ×2 (14:07→21:13)
[2016-05-15] MEDS: PROPOFOL 100 ML IVPB SCH ×2 (14:08→18:44)
[2016-05-15] MEDS: FENTANYL INJECTION 500 MCG in DEXTROSE 5%-WATER - 90 ML IJ SCH ×2 (14:10→21:13)
[2016-05-15] MEDS: NYSTATIN POWDER 100,000 UNITS/GM - 15 GM TOPICAL POWDER TP SCH (14:19)
--- NOTE | 2016-05-15 14:22 | PN ---
Progress Note, Physician History of Present Illness: seen and examined today. intubated, sedated, unresponsive. no overnight events. no new complaints. - Current Medication List Current Medications: Active Medications Albuterol Sulfate (Ventolin 0.083% Nebulizer Soln -) 1 amp NEB Q6H PRN PRN Reason: SHORT OF BREATH/WHEEZING Albuterol/Ipratropium (Duoneb -) 1 amp NEB TIDR [facility] Last Admin: 05/15/16 06:30 Dose: 1 amp Aspirin (Asa -) 300 mg RC DAILY [facility] Chlorhexidine Gluconate (Hibiclens For Decolonization -) 1 applic TP HS [facility] Last Admin: 05/14/16 22:17 Dose: 1 applic Epoetin Keith (Procrit -) 10,000 unit SQ MOWEFR@1000 [facility] Furosemide (Lasix Injection -) 40 mg IVPB DAILY [facility] Last Admin: 05/15/16 09:06 Dose: 40 mg Heparin Sodium (Porcine) (Heparin -) 5,000 unit SQ TID [facility] Last Admin: 05/15/16 06:14 Dose: 5,000 unit Aztreonam 1 gm/ Dextrose 50 mls @ 100 mls/hr IVPB BID [facility] Last Admin: 05/15/16 09:06 Dose: 100 mls/hr Pantoprazole Sodium (Protonix 40mg Ivpb (Pre-Docked)) 100 mls @ 200 mls/hr IVPB DAILY [facility] Last Admin: 05/15/16 09:06 Dose: 200 mls/hr Fentanyl 500 mcg/ Dextrose 100 mls @ 5 mls/hr IJ TITR [facility] PRN Reason: 25 MCG/HR Last Admin: 05/14/16 22:15 Dose: 5 mls/hr Propofol (Diprivan -) 100 mls @ 6.094 mls/hr IVPB TITR [facility]; 10 MCG/KG/MIN PRN Reason: Protocol Methylprednisolone Sodium Succinate (Solu-Medrol -) 40 mg IVPB Q8H-IV [facility] Last Admin: 05/15/16 09:06 Dose: 40 mg Mupirocin (Bactroban Ointment (For Decolonization) -) 1 applic NS BID [facility] Stop: 05/19/16 21:59 Last Admin: 05/14/16 22:16 Dose: 1 applic Nystatin (Nystop Powder -) 1 applic TP DAILY [facility] Prednisone (Deltasone -) 30 mg PO DAILY [facility] Last Admin: 05/15/16 13:59 Dose: Not Given Fluticasone/Salmeterol (Advair 100mcg/50mcg -) 1 puff IH BID [facility] Last Admin: 05/15/16 13:58 Dose: Not Given Vancomycin HCl (Vancomycin (Pre-Docked)) 1,000 mg IVPB Q48H [facility] Last Admin: 05/14/16 18:06 Dose: Not Given - Objective Vital Signs: Vital Signs Temperature 98.4 F 05/15/16 10:00 Pulse Rate 70 05/15/16 12:00 Respiratory Rate 18 05/15/16 12:00 Blood Pressure 112/54 05/15/16 12:00 O2 Sat by Pulse Oximetry (%) 99 05/15/16 10:25 Constitutional: Yes: No Distress, Calm, Obese Eyes: Yes: Conjunctiva Clear HENT: Yes: Atraumatic, Normocephalic Neck: Yes: Supple, Trachea Midline Cardiovascular: Yes: Regular Rate and Rhythm, S1, S2. No: Bradycardia, Tachycardia, Pulse Irregular, Bruit, JVD, Gallop, Murmur, Rub, S3, S4, Varicosities Respiratory: Yes: Regular, Diminished, Intubated, Mechanically Ventilated. No: Rales, Rhonchi, Wheezes Gastrointestinal: Yes: WNL, Normal Bowel Sounds, Soft. No: Distention, Tenderness Extremities: Yes: Deformity Edema: Yes Edema: LLE: Trace, RLE: Trace Peripheral Pulses WNL: Yes Peripheral Pulses: Left Doralis Pedis: 2+, Right Dorsalis Pedis: 2+ Integumentary: Yes: Venous Stasis Changes Neurological: Yes: Unresponsive. No: Alert, Oriented Psychiatric: No: Alert, Oriented Labs: CBC, BMP 05/15/16 05:30 05/15/16 05:30 INR, PTT INR 1.07 (0.82-1.09) 05/14/16 09:41 - ....Imaging Chest X-ray: Report Reviewed, Image Reviewed EKG: Report Reviewed, Image Reviewed Other: Report Reviewed, Image Reviewed (tele-nsr, pvcs, aps, multiple brief episodes psvt self limited) Assessment/Plan IMP: SOB Acute on Chronic COPD Recent Sepsis, gram + Bacteremia, infected HD catheter- removed Recent TARYN on CKD CAD h/o stents REC: SOB-acute on chronic Resp failure: again required intubation recent admission also required intubation and s/p thoracentesis for pleural effusions -multifactorial secondary to COPD and CHF -currently receiving lasix 40mg iv daily -monitor strict I/Os daily weights and bun/creat electrolytes -may need to uptitrate diuretics if does not improve -Echo on recent admission showed normal LV systolic function -ae copd tx as per pulm/ccm CAD: s/p PCI with stents this past year -stable -thrombocytopenia on previous admission resolved -cont ASA 81mg daily -not on bblocker due to severe COPD -short runs PSVT and NSVT, keep K and Mg repleted.
[2016-05-15] MEDS ORDERED: ASPIRIN 325 MG ENTERIC COATED TABLET (FP) PO SCH (14:30)
--- NOTE | 2016-05-15 15:05 | PN ---
Physical Exam: SUBJECTIVE: Patient seen and examined at bedside. Patient is intubated and sedated at this time. On AC mechanical vent.35% Fio2 OBJECTIVE: Vital Signs Period Temp Pulse Resp BP Sys/[place] Pulse Ox Last 24 Hr 98.2 F-99.4 F 70-84 18-22 99-135/52-68 95-99 GENERAL: Intubated and sedated HEAD: Normal with no signs of trauma. EYES: PERRL, sclera anicteric, conjunctiva clear. ENT: nare patent NECK: supple no JVD LUNGS: Intubated, no accessory muscle use. HEART: Irregular, S1, S2 without murmur, rub or gallop. ABDOMEN: Obese, Soft, nontender, nondistended, normoactive bowel sounds, no guarding, no rebound, no hepatosplenomegaly, no masses. EXTREMITIES: 2+ pulses, warm, well-perfused, 1+ edema. NEUROLOGICAL: sadated SKIN: Warm, dry, normal turgor,chronic LE stasis changes. Laboratory Results - last 24 hr 05/14/16 05/14/16 05/15/16 21:08 21:08 05:30 WBC 7.9 9.5 RBC 2.71 L 2.97 L Hgb 7.2 L D 8.0 L D Hct 23.3 L 25.4 L MCV 85.8 85.4 MCHC 30.7 L 31.4 L RDW 17.6 H 16.8 H Plt Count 210 215 MPV 7.0 L 7.3 L Neutrophils % 90.8 H Lymphocytes % 7.0 L D Monocytes % 2.1 L Eosinophils % 0.0 D Basophils % 0.1 Puncture Site ABG pH ABG pCO2 at Pt Temp ABG pO2 at Pt Temp ABG HCO3 ABG O2 Sat (Measured) ABG O2 Content ABG Base Excess Issac Test O2 Delivery Device Oxygen Flow Rate Vent Mode Vent Rate Mechanical Rate PEEP Pressure Support Vent Sodium 142 Potassium 4.4 Chloride 98 Carbon Dioxide 31 Anion Gap 13 BUN 29 H D Creatinine 2.3 H Creat Clearance w eGFR 28.01 Random Glucose 139 H D Calcium 7.7 L Phosphorus 3.5 Magnesium 2.5 H Total Bilirubin 0.3 D AST 13 L D ALT 6 L Alkaline Phosphatase 109 Total Protein 5.1 L Albumin 2.1 L 02/06/17 02/06/17 05:30 07:15 WBC RBC Hgb Hct MCV MCHC RDW Plt Count MPV Neutrophils % Lymphocytes % Monocytes % Eosinophils % Basophils % Puncture Site Left radial ABG pH 7.48 H ABG pCO2 at Pt Temp 39.6 D ABG pO2 at Pt Temp 106.0 H D ABG HCO3 29.0 H ABG O2 Sat (Measured) 98.5 ABG O2 Content 10.7 L ABG Base Excess 5.4 H Issac Test Positive O2 Delivery Device Vent Oxygen Flow Rate 35 Vent Mode A/c Vent Rate 18 Mechanical Rate Yes PEEP 5.0 Pressure Support Vent 475 Sodium 141 Potassium 4.4 Chloride 99 Carbon Dioxide 29 Anion Gap 13 BUN 34 H Creatinine 2.5 H Creat Clearance w eGFR 25.44 Random Glucose 156 H Calcium 8.1 L Phosphorus 3.9 Magnesium 2.5 H Total Bilirubin 0.5 D AST 12 L ALT < 6 L Alkaline Phosphatase 104 Total Protein 5.0 L Albumin 2.2 L Active Medications Generic Name Dose Route Start Last Admin Trade Name Freq PRN Reason Stop Dose Admin Albuterol Sulfate 1 amp 05/14/16 14:59 Ventolin 0.083% Nebulizer Soln - NEB Q6H PRN SHORT OF BREATH/WHEEZING Albuterol/Ipratropium 1 amp 05/14/16 22:00 05/15/16 06:30 Duoneb - NEB 1 amp TIDR [facility] Administration Aspirin 300 mg 05/15/16 10:00 Asa - RC DAILY [facility] Chlorhexidine Gluconate 1 applic 05/14/16 22:00 05/14/16 22:17 Hibiclens For Decolonization - TP 1 applic HS [facility] Administration Epoetin Keith 10,000 unit 05/15/16 10:00 Procrit - SQ MOWEFR@1000 [facility] Furosemide 40 mg 05/15/16 10:00 05/15/16 09:06 Lasix Injection - IVPB 40 mg DAILY [facility] Administration Heparin Sodium (Porcine) 5,000 unit 05/14/16 22:00 05/15/16 06:14 Heparin - SQ 5,000 unit TID [facility] Administration Aztreonam 1 gm/ Dextrose 50 mls @ 100 mls/hr 05/14/16 22:00 05/15/16 09:06 IVPB 100 mls/hr BID [facility] Administration Pantoprazole Sodium 100 mls @ 200 mls/hr 05/15/16 10:00 05/15/16 09:06 Protonix 40mg Ivpb (Pre-Docked) IVPB 200 mls/hr DAILY [facility] Administration Fentanyl 500 mcg/ Dextrose 100 mls @ 5 mls/hr 05/14/16 20:30 05/14/16 22:15 IJ 5 mls/hr TITR [facility] Administration 25 MCG/HR Propofol 100 mls @ 6.094 mls/hr 05/15/16 13:45 Diprivan - IVPB TITR [facility] Protocol 10 MCG/KG/MIN Methylprednisolone Sodium Succinate 40 mg 05/15/16 02:00 05/15/16 09:06 Solu-Medrol - IVPB 40 mg Q8H-IV [facility] Administration Mupirocin 1 applic 05/14/16 22:00 05/14/16 22:16 Bactroban Ointment (For Decolonization) - NS 05/19/16 21:59 1 applic BID [facility] Administration Nystatin 1 applic 05/15/16 10:00 Nystop Powder - TP DAILY [facility] Prednisone 30 mg 05/15/16 10:00 05/15/16 13:59 Deltasone - PO Not Given DAILY [facility] Fluticasone/Salmeterol 1 puff 05/14/16 22:00 05/15/16 13:58 Advair 100mcg/50mcg - IH Not Given BID [facility] Vancomycin HCl 1,000 mg 05/14/16 18:00 05/14/16 18:06 Vancomycin (Pre-Docked) IVPB Not Given Q48H [facility] ASSESSMENT/PLAN: 75 yo M with multiple hospital admissions in past year for acute respiratory failure. Admitted to ICU following intubation . Neuro: * Intubated and sadated. Pulm: * AC VENT 35%Fio2 * will remain intubated today. * SBT tomorrow. * maintain o2 sat >90% * Prednisone 30mg PO daily * Duonebs TID * ALbuterol PRN. CV: * Lasix 40mg IV daily. * ASA 300mg FL ID: * Vancomycin 1,000 mg IVPB Q48H * Aztreonam 1 gm/ Dextrose 50 mls @ 100 mls/hr IVPB BID * ID consult appreciated. Renal: * CKD eleanor 3 * repeat BMP in AM * avoid nephrotoxins. Prophylaxis: * DVT- Heparin * GI- protonix. DISPO: Continue to monitor in ICU. Visit type - Emergency Visit Emergency Visit: Yes ED Registration Date: 05/14/16 Care time: The patient presented to the Emergency Department on the above date and was hospitalized for further evaluation of their emergent condition. - New Patient This patient is new to me today: Yes Date on this admission: 05/15/16 - Critical Care Critical Care patient: Yes Total Critical Care Time (in minutes): 33 Critical Care Statement: The care of this patient involved high complexity decision making to prevent further life threatening deterioration of the patient 's condition and/or to evalute & treat vital organ system(s) failure or risk of failure.
[2016-05-15] MEDS: EPOETIN ALFA 10,000 UNIT/1 ML VIAL SQ SCH (15:42)
[2016-05-15] MEDS: ASPIRIN 300 MG SUPP.RECT RC SCH (15:42)
--- NOTE | 2016-05-15 15:58 | PN ---
Teaching Attending Note Name of Resident: Melody Banks ATTENDING PHYSICIAN STATEMENT I saw and evaluated the patient. I reviewed the resident's note and discussed the case with the resident. I agree with the resident's findings and plan as documented. SUBJECTIVE: Patient is in ICU, comfortable, opens eyes, sedated but is still awake. responds by opening and closing his eyes OBJECTIVE: Vital Signs Temperature 98.1 F 05/15/16 14:00 Pulse Rate 74 05/15/16 14:00 Respiratory Rate 18 05/15/16 14:15 Blood Pressure 113/63 05/15/16 14:00 O2 Sat by Pulse Oximetry (%) 99 05/15/16 10:25 CBCD WBC 9.5 K/mm3 (4.0-10.0) 05/15/16 05:30 RBC 2.97 M/mm3 (4.00-5.60) L 05/15/16 05:30 Hgb 8.0 GM/dL (11.7-16.9) L D 05/15/16 05:30 Hct 25.4 % (35.4-49) L 05/15/16 05:30 MCV 85.4 fl (80-96) 05/15/16 05:30 MCHC 31.4 g/dl (32.0-35.9) L 05/15/16 05:30 RDW 16.8 % (11.9-15.9) H 05/15/16 05:30 Plt Count 215 K/MM3 (134-434) 05/15/16 05:30 MPV 7.3 fl (7.5-11.1) L 05/15/16 05:30 CMP Sodium 141 mmol/L (136-145) 05/15/16 05:30 Potassium 4.4 mmol/L (3.5-5.1) 05/15/16 05:30 Chloride 99 mmol/L (98-107) 05/15/16 05:30 Carbon Dioxide 29 mmol/L (21-32) 05/15/16 05:30 Anion Gap 13 (8-16) 05/15/16 05:30 BUN 34 mg/dL (7-18) H 05/15/16 05:30 Creatinine 2.5 mg/dL (0.7-1.3) H 05/15/16 05:30 Creat Clearance w eGFR 25.44 (>60) 05/15/16 05:30 Random Glucose 156 mg/dL (74-106) H 05/15/16 05:30 Calcium 8.1 mg/dL (8.5-10.1) L 05/15/16 05:30 Total Bilirubin 0.5 mg/dL (0.2-1.0) D 05/15/16 05:30 AST 12 U/L (15-37) L 05/15/16 05:30 ALT < 6 U/L (12-78) L 05/15/16 05:30 Alkaline Phosphatase 104 U/L (45-117) 05/15/16 05:30 Total Protein 5.0 g/dl (6.4-8.2) L 05/15/16 05:30 Albumin 2.2 g/dl (3.4-5.0) L 05/15/16 05:30 CARDIAC ENZYMES Creatine Kinase 26 IU/L (39-308) L 05/14/16 09:00 Troponin I < 0.02 ng/ml (0.00-0.05) 05/14/16 09:00 Current Medications Generic Name Dose Route Start Last Admin Trade Name Freq PRN Reason Stop Dose Admin Albuterol Sulfate 1 amp 05/14/16 14:59 Ventolin 0.083% Nebulizer Soln - NEB Q6H PRN SHORT OF BREATH/WHEEZING Albuterol/Ipratropium 1 amp 05/14/16 22:00 05/15/16 13:45 Duoneb - NEB 1 amp TIDR LESLEE Administration Aspirin 300 mg 05/15/16 15:45 05/15/16 15:42 Asa - RC 300 mg DAILY LESLEE Administration Chlorhexidine Gluconate 1 applic 05/14/16 22:00 05/14/16 22:17 Hibiclens For Decolonization - TP 1 applic HS LESLEE Administration Epoetin Keith 10,000 unit 05/15/16 10:00 05/15/16 15:42 Procrit - SQ 10,000 unit MOWEFR@1000 LESLEE Administration Furosemide 40 mg 05/15/16 10:00 05/15/16 09:06 Lasix Injection - IVPB 40 mg DAILY LESLEE Administration Heparin Sodium (Porcine) 5,000 unit 05/14/16 22:00 05/15/16 14:09 Heparin - SQ 5,000 unit TID LESLEE Administration Aztreonam 1 gm/ Dextrose 50 mls @ 100 mls/hr 05/14/16 22:00 05/15/16 09:06 IVPB 100 mls/hr BID LESLEE Administration Pantoprazole Sodium 100 mls @ 200 mls/hr 05/15/16 10:00 05/15/16 09:06 Protonix 40mg Ivpb (Pre-Docked) IVPB 200 mls/hr DAILY LESLEE Administration Fentanyl 500 mcg/ Dextrose 100 mls @ 5 mls/hr 05/14/16 20:30 05/15/16 14:10 IJ 5 mls/hr TITR LESLEE Administration 25 MCG/HR Propofol 100 mls @ 6.094 mls/hr 05/15/16 13:45 05/15/16 14:08 Diprivan - IVPB 12.187 mls/hr TITR LESLEE Administration Protocol 10 MCG/KG/MIN Mupirocin 1 applic 05/14/16 22:00 05/15/16 14:07 Bactroban Ointment (For Decolonization) - NS 05/19/16 21:59 1 applic BID LESLEE Administration Nystatin 1 applic 05/15/16 10:00 05/15/16 14:19 Nystop Powder - TP 1 vial DAILY LESLEE Administration Prednisone 30 mg 05/16/16 10:00 Deltasone - PO DAILY LESLEE Vancomycin HCl 1,000 mg 05/14/16 18:00 05/14/16 18:06 Vancomycin (Pre-Docked) IVPB Not Given Q48H [facility] Home Medications Medication Instructions Recorded Acetaminophen W/ Codeine #3 1 tab PO Q6H PRN 02/18/16 [Tylenol # 3 -] Albuterol 0.083% Nebulizer Soni 1 amp NEB ASDIR PRN 02/18/16 [Ventolin 0.083% Nebulizer Soln -] Aspirin [Ecotrin] 81 mg PO DAILY 02/18/16 Acetaminophen [Tylenol .Regular 650 mg PO Q6H PRN #0 tablet 04/12/16 Strength -] Amlodipine Besylate [Norvasc -] 10 mg PO DAILY #30 tablet 04/12/16 Docusate Sodium [Colace -] 100 mg PO BID #60 capsule 04/12/16 Duloxetine HCl [Cymbalta -] 30 mg PO DAILY #30 capsule. 04/12/16 Pantoprazole Sodium [Protonix -] 40 mg PO DAILY tablet.ec 04/12/16 Sodium Chloride Nasal [place] [Luce 2 spray NS Q12H PRN #0 bottle 04/12/16 [place] Nasal [place] -] Epoetin Keith [Epogen] 10,000 unit SQ MOWEFR@1000 #12 dose 04/13/16 Ferrous Sulfate 325 mg PO BID 04/25/16 Guaifenesin [Mucinex] 600 mg PO Q12H 04/25/16 Mirtazapine [Remeron -] 7.5 mg PO HS 04/25/16 Prasugrel HCl [Effient] 10 mg PO DAILY 04/25/16 Pregabalin [Lyrica] 25 mg PO HS 04/25/16 Salmeterol/Fluticasone [Advair 1 inh PO BID 04/25/16 100Mcg/50Mcg -] Sennosides [Senna] 2 tab PO HS 04/25/16 Albuterol 2.5/Ipratropium 0.5 1 amp NEB TIDR amp 05/01/16 [Duoneb -] Tamsulosin HCl [Flomax -] 0.4 mg PO DAILY@0830 cap.er.24h 05/01/16 Torsemide [Demadex -] 40 mg PO DAILY tablet 05/01/16 Aa/Hydrolyzed Collagen, Whey [Lps 30 ml PO BID 05/14/16 15-30 Liquid] Ondansetron HCl [Zofran] 4 mg PO Q8H PRN 05/14/16 Sulfamethoxazole/Trimethoprim 1 tab PO BID 05/14/16 [Bactrim Ds -] Microbiology 05/14/16 09:00 Nasopharyngeal Swab Respiratory Virus Panel - Preliminary 05/14/16 Unknown Sputum - Endotrachea Suction/Ventilator Gram Stain - Final 05/14/16 10:02 Urine - Urine Clean Catch Urine Culture - Preliminary 05/14/16 09:00 Blood - Peripheral Venous Blood Culture - Preliminary NO GROWTH OBTAINED AFTER 24 HOURS, INCUBATION TO CONTINUE FOR 4 DAYS. 05/14/16 09:00 Blood - Peripheral Venous Blood Culture - Preliminary NO GROWTH OBTAINED AFTER 24 HOURS, INCUBATION TO CONTINUE FOR 4 DAYS. 05/14/16 09:00 Nasopharyngeal Swab Influenza Types A,B Antigen (TONI) - Final 05/14/16 09:00 Nasopharyngeal Swab - Final ASSESSMENT AND PLAN: The patient is a 75-year-old man, from [facility], with a significant past medical history of anemia, hypertension, hypercholesterolemia, coronary artery disease s/p 2 stents placements, congestive heart failure, chronic obstructive pulmonary disease, pleural effusions (s/p thoracentesis), Acute renal failure over chronic kidney disease, peripheral vascular disease, chronic lymphedema, MRSA in PermaCath was treated with IV antibiotic who presents to the emergency department via EMS for further evaluation of respiratory distress and hypoxia. While in ED. patient continued to be hypoxic on BiPAP and an ABG prior tube BiPAP showed that the patient was retaining CO2 therefore, Patient was intubated and was found to have a lot of purulent sputum around the vocal cords. A right femoral central line was placed for intravenous access as the patient has poor peripheral vasculature. A femoral line location was chosen as the patient has poor neck anatomy. Therefore patient was admitted to ICU. He is been pancultured and Levaquin and vancomycin has been given. He is currently on a propofol drip for sedation. # Acute hypoxic and hypercapnic respiratory failure s/p intubation on propofol drip continue in ICU. Patient is pancultured and started IV antibiotic Azactam Vancomycin IV q48h started ;Id and intencivist are consulted. # Acute UTI started on Levaquin and given Diflucan 200mg IV for yeast growth in the UA. # Acute over chronic kidney injury on stage 4 CKD with creatinine of 2.5 with BUN of 35 today , nephrology consult appreciated continue to monitor strict I/Os and daily weights. # CAD/chronic CHF cardiology consulted , not on b-regine due to severe COPD s/p PCI with stents this past year, cont.ASA 300mg rectally since intubated . # Anemia secondary to chronic illness, CKD, will monitor, type and screen for 2 units transfuse if needed # Hx of Healthcare-associated pneumonia with recent MRSA bacteremia s/p IV antibiotic # Hypertension stable at this time DVT PPX; Heparin 5000 u SQ Q8h
--- NOTE | 2016-05-15 16:21 | PN ---
Physical Exam: SUBJECTIVE: Patient seen and examined. intubated and sedated on propofol drip and fentanyl drip but still awake, able to communicate by blinking. OBJECTIVE: Vital Signs Period Temp Pulse Resp BP Sys/[place] Pulse Ox Last 24 Hr 98.1 F-99 F 70-84 18-22 99-135/52-68 95-99 GENERAL: The patient is awake, intubated with wrist restraints. HEAD: Normal with no signs of trauma. EYES: PERRL, extraocular movements intact, ENT: endotracheal tube in place, NG tube clamped. NECK: Trachea midline LUNGS: Breath sounds anteriorly with b/l mild wheezing throughout. HEART: afib, S1, S2 without murmur, rub or gallop. ABDOMEN: obese, Soft, nondistended, normoactive bowel sounds EXTREMITIES: 2+ pulses, warm, thickened skin on b/l lower legs, no erythema, no skin breakdown, 1+ b/l edema, clammy skin in lower legs. Laboratory Results - last 24 hr 05/14/16 05/14/16 05/15/16 21:08 21:08 05:30 WBC 7.9 9.5 RBC 2.71 L 2.97 L Hgb 7.2 L D 8.0 L D Hct 23.3 L 25.4 L MCV 85.8 85.4 MCHC 30.7 L 31.4 L RDW 17.6 H 16.8 H Plt Count 210 215 MPV 7.0 L 7.3 L Neutrophils % 90.8 H Lymphocytes % 7.0 L D Monocytes % 2.1 L Eosinophils % 0.0 D Basophils % 0.1 Puncture Site ABG pH ABG pCO2 at Pt Temp ABG pO2 at Pt Temp ABG HCO3 ABG O2 Sat (Measured) ABG O2 Content ABG Base Excess Issac Test O2 Delivery Device Oxygen Flow Rate Vent Mode Vent Rate Mechanical Rate PEEP Pressure Support Vent Sodium 142 Potassium 4.4 Chloride 98 Carbon Dioxide 31 Anion Gap 13 BUN 29 H D Creatinine 2.3 H Creat Clearance w eGFR 28.01 Random Glucose 139 H D Calcium 7.7 L Phosphorus 3.5 Magnesium 2.5 H Total Bilirubin 0.3 D AST 13 L D ALT 6 L Alkaline Phosphatase 109 Total Protein 5.1 L Albumin 2.1 L 05/15/16 05/15/16 05:30 07:15 WBC RBC Hgb Hct MCV MCHC RDW Plt Count MPV Neutrophils % Lymphocytes % Monocytes % Eosinophils % Basophils % Puncture Site Left radial ABG pH 7.48 H ABG pCO2 at Pt Temp 39.6 D ABG pO2 at Pt Temp 106.0 H D ABG HCO3 29.0 H ABG O2 Sat (Measured) 98.5 ABG O2 Content 10.7 L ABG Base Excess 5.4 H Issac Test Positive O2 Delivery Device Vent Oxygen Flow Rate 35 Vent Mode A/c Vent Rate 18 Mechanical Rate Yes PEEP 5.0 Pressure Support Vent 475 Sodium 141 Potassium 4.4 Chloride 99 Carbon Dioxide 29 Anion Gap 13 BUN 34 H Creatinine 2.5 H Creat Clearance w eGFR 25.44 Random Glucose 156 H Calcium 8.1 L Phosphorus 3.9 Magnesium 2.5 H Total Bilirubin 0.5 D AST 12 L ALT < 6 L Alkaline Phosphatase 104 Total Protein 5.0 L Albumin 2.2 L Active Medications Generic Name Dose Route Start Last Admin Trade Name Freq PRN Reason Stop Dose Admin Albuterol Sulfate 1 amp 05/14/16 14:59 Ventolin 0.083% Nebulizer Soln - NEB Q6H PRN SHORT OF BREATH/WHEEZING Albuterol/Ipratropium 1 amp 05/14/16 22:00 05/15/16 13:45 Duoneb - NEB 1 amp TIDR LESLEE Administration Aspirin 300 mg 05/15/16 15:45 05/15/16 15:42 Asa - RC 300 mg DAILY LESLEE Administration Chlorhexidine Gluconate 1 applic 05/14/16 22:00 05/14/16 22:17 Hibiclens For Decolonization - TP 1 applic HS LESLEE Administration Epoetin Keith 10,000 unit 05/15/16 10:00 05/15/16 15:42 Procrit - SQ 10,000 unit MOWEFR@1000 LESLEE Administration Furosemide 40 mg 05/15/16 10:00 05/15/16 09:06 Lasix Injection - IVPB 40 mg DAILY LESLEE Administration Heparin Sodium (Porcine) 5,000 unit 05/14/16 22:00 05/15/16 14:09 Heparin - SQ 5,000 unit TID LESLEE Administration Aztreonam 1 gm/ Dextrose 50 mls @ 100 mls/hr 05/14/16 22:00 05/15/16 09:06 IVPB 100 mls/hr BID LESLEE Administration Pantoprazole Sodium 100 mls @ 200 mls/hr 05/15/16 10:00 05/15/16 09:06 Protonix 40mg Ivpb (Pre-Docked) IVPB 200 mls/hr DAILY LESLEE Administration Fentanyl 500 mcg/ Dextrose 100 mls @ 5 mls/hr 05/14/16 20:30 05/15/16 14:10 IJ 5 mls/hr TITR LESLEE Administration 25 MCG/HR Propofol 100 mls @ 6.094 mls/hr 05/15/16 13:45 05/15/16 14:08 Diprivan - IVPB 12.187 mls/hr TITR LESLEE Administration Protocol 10 MCG/KG/MIN Mupirocin 1 applic 05/14/16 22:00 05/15/16 14:07 Bactroban Ointment (For Decolonization) - NS 05/19/16 21:59 1 applic BID LESLEE Administration Nystatin 1 applic 05/15/16 10:00 05/15/16 14:19 Nystop Powder - TP 1 vial DAILY LESLEE Administration Prednisone 30 mg 05/16/16 10:00 Deltasone - PO DAILY LESLEE Vancomycin HCl 1,000 mg 05/14/16 18:00 05/14/16 18:06 Vancomycin (Pre-Docked) IVPB Not Given Q48H LESLEE ASSESSMENT/PLAN: 75 yr old with multiple pulmonary and cardiac co-morbidities, MRSA in sputum, recent ICU admission, BIBEMS for respiratory distress, with cardiac arrest and intubation in ED admitted to ICU for hypercapneic hypoxic respiratory failure secondary to acute on chronic COPD exacerbation. #COPD oxygen dependent- acute hypoxic hypercapneic respiratory failure, acute on chronic exacerbation - Admitted to ICU, intubated on vent, with propofol drip and fentanyl titrated to maintain sedation - Cxy with left lower lobe consolidation/atelectasis and a small pleural effusion, small right pleural effusion. -- abx Aztreonam 1gm BID IVPB, Vancomycin 1gm daily -- start 2/5 - solumedrol 40mg TID IVPB - sputum cx pending #HTN - currently controlled - hold all po medications as pt is intubated - lasix 40mg IVPB qdaily #CHF - diurese with lasix IVPB 40mg daily #CAD - cardiology consulted - ASA 300 [place] #CKD stage 3 - monitor BMP #Anemia, chronic - monitor H/H, transfuse if <8.0 - s/p 1 unit of prbc's / - iron studies in 02/2016 with normal serum iron, ferritin, iron saturation, with TIBC low Code status: FULL CODE Diet - currently intubated DVT; Heparin TId GI: protonix 40mg IVPB daily Visit type - Emergency Visit Emergency Visit: No - New Patient This patient is new to me today: No - Critical Care Critical Care patient: Yes Total Critical Care Time (in minutes): 37 Critical Care Statement: The care of this patient involved high complexity decision making to prevent further life threatening deterioration of the patient 's condition and/or to evalute & treat vital organ system(s) failure or risk of failure.
--- NOTE | 2016-05-15 18:11 | PN ---
Progress Note, Physician History of Present Illness: patient stable opening his eyes on command still intubated and sedated - Current Medication List Current Medications: Active Medications Albuterol Sulfate (Ventolin 0.083% Nebulizer Soln -) 1 amp NEB Q6H PRN PRN Reason: SHORT OF BREATH/WHEEZING Albuterol/Ipratropium (Duoneb -) 1 amp NEB TIDR [facility] Last Admin: 05/15/16 13:45 Dose: 1 amp Aspirin (Asa -) 300 mg RC DAILY [facility] Last Admin: 05/15/16 15:42 Dose: 300 mg Chlorhexidine Gluconate (Hibiclens For Decolonization -) 1 applic TP HS [facility] Last Admin: 05/14/16 22:17 Dose: 1 applic Epoetin Keith (Procrit -) 10,000 unit SQ MOWEFR@1000 [facility] Last Admin: 05/15/16 15:42 Dose: 10,000 unit Furosemide (Lasix Injection -) 40 mg IVPB DAILY [facility] Last Admin: 05/15/16 09:06 Dose: 40 mg Heparin Sodium (Porcine) (Heparin -) 5,000 unit SQ TID [facility] Last Admin: 05/15/16 14:09 Dose: 5,000 unit Aztreonam 1 gm/ Dextrose 50 mls @ 100 mls/hr IVPB BID [facility] Last Admin: 05/15/16 09:06 Dose: 100 mls/hr Pantoprazole Sodium (Protonix 40mg Ivpb (Pre-Docked)) 100 mls @ 200 mls/hr IVPB DAILY [facility] Last Admin: 05/15/16 09:06 Dose: 200 mls/hr Fentanyl 500 mcg/ Dextrose 100 mls @ 5 mls/hr IJ TITR LESLEE PRN Reason: 25 MCG/HR Last Admin: 05/15/16 14:10 Dose: 5 mls/hr Propofol (Diprivan -) 100 mls @ 6.094 mls/hr IVPB TITR LESLEE; 10 MCG/KG/MIN PRN Reason: Protocol Last Admin: 05/15/16 14:08 Dose: 12.187 mls/hr Mupirocin (Bactroban Ointment (For Decolonization) -) 1 applic NS BID [facility] Stop: 05/19/16 21:59 Last Admin: 05/15/16 14:07 Dose: 1 applic Nystatin (Nystop Powder -) 1 applic TP DAILY [facility] Last Admin: 05/15/16 14:19 Dose: 1 vial Prednisone (Deltasone -) 30 mg PO DAILY [facility] Vancomycin HCl (Vancomycin (Pre-Docked)) 1,000 mg IVPB Q48H [facility] Last Admin: 05/14/16 18:06 Dose: Not Given - Objective Vital Signs: Vital Signs Temperature 98.1 F 05/15/16 14:00 Pulse Rate 80 05/15/16 16:00 Respiratory Rate 18 05/15/16 16:20 Blood Pressure 122/57 05/15/16 16:00 O2 Sat by Pulse Oximetry (%) 99 05/15/16 10:25 Constitutional: Yes: No Distress, Calm Neck: Yes: Supple Cardiovascular: Yes: Regular Rate and Rhythm Respiratory: Yes: Regular, Intubated, Mechanically Ventilated, Rhonchi Gastrointestinal: Yes: Normal Bowel Sounds, Soft Extremities: Yes: Other (bilateral venous congestion) Integumentary: Yes: Venous Stasis Changes, Other Wound/Incision: Yes: Well Approximated Neurological: Yes: Alert, Other (opens eyes and understands) Labs: CBC, BMP 05/15/16 05:30 05/15/16 05:30 INR, PTT INR 1.07 (0.82-1.09) 05/14/16 09:41 Assessment/Plan Problem List - Problems (1) Acute and chronic respiratory failure ([id number]) Code(s): J96.20 - ACUTE AND CHR RESP FAILURE, UNSP W HYPOXIA OR HYPERCAPNIA Qualifiers: Respiratory failure complication: hypoxia and hypercapnia Qualified Code(s): J96.21 - Acute and chronic respiratory failure with hypoxia (2) Congestive heart failure Code(s): I50.9 - HEART FAILURE, UNSPECIFIED (3) Renal insufficiency Code(s): N28.9 - DISORDER OF KIDNEY AND URETER, UNSPECIFIED (4) Acute exacerbation of chronic obstructive pulmonary disease (COPD) Code(s): J44.1 - CHRONIC OBSTRUCTIVE PULMONARY DISEASE W (ACUTE) EXACERBATION sepsis pneumonia i am worried that patient lee be having mrsa pneumonia patinet is going iin repeated resp failure plan continue abx continue supportive measures sputum for culture await all other cx report nutrition cc time 40 min
[2016-05-15] MEDS: CHLORHEXIDINE GLUCONATE 4% CLEANSER FOR DECOLONIZATION TP SCH (21:14)
[2016-05-15] MEDS ORDERED: MIDAZOLAM HCL 2 MG/2 ML SINGLE DOSE VIAL IVPUSH ONE (21:55)
[2016-05-16] MEDS ORDERED: MIDAZOLAM HCL 2 MG/2 ML SINGLE DOSE VIAL IVPUSH ONE (00:16)
[2016-05-16 05:44] LABS: BASOPHIL 0.1 % (0-2.0); MCH 27.1 pg (25.7-33.7); MCHC 32.1 g/dl (32.0-35.9); MEAN CELL VOLUME 84.4 fl (80-96); MEAN PLT VOLUME 7.7 fl (7.5-11.1); NEUTROPHILS 89.4 % (42.8-82.8); PLATELET COUNT 210 K/MM3 (134-434)
[2016-05-16 06:01] LABS: ALK PHOS 82 U/L (45-117); ANION GAP 11 (8-16); BILIRUBIN,TOTAL 0.3 mg/dL (0.2-1.0); CALCIUM 7.7 mg/dL (8.5-10.1); CO2 30 mmol/L (21-32); CREATININE 2.9 mg/dL (0.7-1.3); GLUCOSE,RANDOM 136 mg/dL (74-106); MAGNESIUM 2.4 mg/dL (1.8-2.4); PHOSPHOROUS 4.4 mg/dL (2.5-4.9); SGOT/AST 10 U/L (15-37); SGPT/ALT < 6 U/L (12-78); TOT PROT 4.7 g/dl (6.4-8.2)
[2016-05-16] MEDS: HEPARIN NA (PORCINE) 5,000 UNITS/ML 1ML VIAL SQ SCH ×4 (06:23→22:09)
[2016-05-16] MEDS: ALBUTEROL SO4 2.5/IPRATROPIUM 0.5 INH SOL 3 ML VIAL.NEB. NEB SCH ×3 (06:32→22:15)
[2016-05-16 07:43] LABS: ARTERIAL BLD GAS O2 SATURATION 93.8 % (90-98.9); ARTERIAL BLOOD GAS BASE EXCESS 3.7 meq/l (-2-2); ARTERIAL BLOOD GAS HCO3 27.9 meq/L (22-26); ARTERIAL BLOOD GAS PO2 71.2 mmHg (70-100); ARTERIAL BLOOD GAS pH 7.42 (7.35-7.45)
[2016-05-16 07:44] LABS: ALLENS TEST POSITIVE; ART PUNCT SITE LEFT RADIAL; LPM/O2% 35%; MECH. VENT. ESPRIT; PT. ON O2? YES; TYPE OF O2 MEC.VENT; VENT RATE 18; VT/PRESS 475
[2016-05-16] MEDS ORDERED: PT OWN MED DRAWER 7, Y5N ONE ×2 (08:56→21:16)
--- NOTE | 2016-05-16 09:41 | PN ---
Physical Exam: SUBJECTIVE: Patient seen and examined. Sedation titrating off for SBT today, still intubated. does not appear to be in acute distress. OBJECTIVE: Vital Signs Period Temp Pulse Resp BP Sys/[place] Pulse Ox Last 24 Hr 96.4 F-98.4 F 57-82 18-27 94-137/50-68 95-99 GENERAL: The patient is awake, intubated with wrist restraints. HEAD: Normal with no signs of trauma. EYES: PERRL, extraocular movements intact, ENT: endotracheal tube in place, NG tube to wall NECK: Trachea midline LUNGS: Breath sounds anteriorly with scattered rhonchi HEART: afib, S1, S2 without murmur, rub or gallop. ABDOMEN: obese, Soft, nondistended, normoactive bowel sounds EXTREMITIES: 2+ pulses, thickened skin on b/l lower legs, mild erythema, no skin breakdown, 1+ b/l edema, cool Laboratory Results - last 24 hr 05/16/16 05/16/16 05/16/16 05:15 05:15 07:35 WBC 9.0 RBC 2.59 L Hgb 7.0 L D Hct 21.9 L MCV 84.4 MCHC 32.1 RDW 17.0 H Plt Count 210 MPV 7.7 Neutrophils % 89.4 H Lymphocytes % 6.2 L Monocytes % 4.3 D Eosinophils % 0.0 Basophils % 0.1 Puncture Site Left radial ABG pH 7.42 ABG pCO2 at Pt Temp 43.6 ABG pO2 at Pt Temp 71.2 D ABG HCO3 27.9 H ABG O2 Sat (Measured) 93.8 ABG O2 Content 10.2 L ABG Base Excess 3.7 H Issac Test Positive O2 Delivery Device Mec.vent Oxygen Flow Rate 35% Vent Mode A/c Vent Rate 18 Mechanical Rate Esprit PEEP 5.0 Pressure Support Vent 475 Sodium 139 Potassium 4.3 Chloride 98 Carbon Dioxide 30 Anion Gap 11 BUN 46 H D Creatinine 2.9 H Creat Clearance w eGFR 21.44 Random Glucose 136 H Calcium 7.7 L Phosphorus 4.4 Magnesium 2.4 Total Bilirubin 0.3 D AST 10 L ALT < 6 L Alkaline Phosphatase 82 D Total Protein 4.7 L Albumin 2.0 L Active Medications Generic Name Dose Route Start Last Admin Trade Name Freq PRN Reason Stop Dose Admin Albuterol Sulfate 1 amp 05/14/16 14:59 Ventolin 0.083% Nebulizer Soln - NEB Q6H PRN SHORT OF BREATH/WHEEZING Albuterol/Ipratropium 1 amp 05/14/16 22:00 05/16/16 06:32 Duoneb - NEB 1 amp TIDR LESLEE Administration Aspirin 300 mg 05/15/16 15:45 05/15/16 15:42 Asa - RC 300 mg DAILY LESLEE Administration Chlorhexidine Gluconate 1 applic 05/14/16 22:00 05/15/16 21:14 Hibiclens For Decolonization - TP 1 applic HS LESLEE Administration Epoetin Keith 10,000 unit 05/15/16 10:00 05/15/16 15:42 Procrit - SQ 10,000 unit MOWEFR@1000 LESLEE Administration Furosemide 40 mg 05/15/16 10:00 05/15/16 09:06 Lasix Injection - IVPB 40 mg DAILY LESLEE Administration Heparin Sodium (Porcine) 5,000 unit 05/14/16 22:00 05/16/16 06:23 Heparin - SQ 5,000 unit TID LESLEE Administration Aztreonam 1 gm/ Dextrose 50 mls @ 100 mls/hr 05/14/16 22:00 05/15/16 21:13 IVPB 100 mls/hr BID LESLEE Administration Pantoprazole Sodium 100 mls @ 200 mls/hr 05/15/16 10:00 05/15/16 09:06 Protonix 40mg Ivpb (Pre-Docked) IVPB 200 mls/hr DAILY LESLEE Administration Fentanyl 500 mcg/ Dextrose 100 mls @ 5 mls/hr 05/14/16 20:30 05/15/16 21:13 IJ 10 mls/hr TITR LESLEE Administration 25 MCG/HR Propofol 100 mls @ 6.094 mls/hr 05/15/16 13:45 05/15/16 18:44 Diprivan - IVPB 18.281 mls/hr TITR LESLEE Administration Protocol 10 MCG/KG/MIN Mupirocin 1 applic 05/14/16 22:00 05/15/16 21:13 Bactroban Ointment (For Decolonization) - NS 05/19/16 21:59 1 applic BID LESLEE Administration Nystatin 1 applic 05/15/16 10:00 05/15/16 14:19 Nystop Powder - TP 1 vial DAILY LESLEE Administration Prednisone 30 mg 05/16/16 10:00 Deltasone - PO DAILY LESLEE Vancomycin HCl 1,000 mg 05/16/16 11:45 Vancomycin (Pre-Docked) IVPB Q48H [facility] ASSESSMENT/PLAN: 75 yr old with multiple pulmonary and cardiac co-morbidities, MRSA in sputum, recent ICU admission, BIBEMS for respiratory distress, with cardiac arrest and intubation in ED admitted to ICU for hypercapneic hypoxic respiratory failure secondary to acute on chronic COPD exacerbation. #COPD oxygen dependent- acute hypoxic hypercapneic respiratory failure, acute on chronic exacerbation - Admitted to ICU, intubated on vent, sedation being titrated -- abx Aztreonam 1gm BID IVPB, Vancomycin 1gm daily -- start 05/14 - solumedrol 30mg po daily - sputum cx pending #HTN - currently controlled - hold all po medications as pt is intubated - lasix 40mg IVPB qdaily #CHF - diurese with lasix IVPB 40mg daily #CAD - cardiology consulted - ASA 300 [place] #CKD stage 3 - monitor BMP #Anemia, chronic - monitor H/H, transfuse if <8.0 - s/p 1 unit of prbc's 05/14 - iron studies in 02/2016 with normal serum iron, ferritin, iron saturation, with TIBC low Code status: FULL CODE Diet - currently intubated DVT; Heparin TId GI: protonix 40mg IVPB daily Visit type - Emergency Visit Emergency Visit: No - New Patient This patient is new to me today: No - Critical Care Critical Care patient: Yes Total Critical Care Time (in minutes): 34 Critical Care Statement: The care of this patient involved high complexity decision making to prevent further life threatening deterioration of the patient 's condition and/or to evalute & treat vital organ system(s) failure or risk of failure.
[2016-05-16] MEDS: PANTOPRAZOLE SODIUM 100 ML IVPB SCH (09:49)
[2016-05-16] MEDS: NYSTATIN POWDER 100,000 UNITS/GM - 15 GM TOPICAL POWDER TP SCH (09:49)
[2016-05-16] MEDS: ASPIRIN 300 MG SUPP.RECT RC SCH (09:50)
[2016-05-16] MEDS: MUPIROCIN 2% TOPICAL OINTMENT FOR DECOLONIZATION NS SCH ×2 (09:50→21:18)
[2016-05-16] MEDS: AZTREONAM 1 GM in DEXTROSE 5%-WATER - 50 ML IVPB SCH ×2 (09:50→21:17)
[2016-05-16] MEDS: FUROSEMIDE 40 MG/4 ML INJECTABLE VIAL IVPB SCH (09:51)
[2016-05-16] MEDS: predniSONE 10 MG TABLET (UD) PO SCH (09:53)
--- NOTE | 2016-05-16 10:33 | PN ---
Progress Note, Physician Chief Complaint: intubated, alert Off propofol TELE: NSR, NSVT 7-8 beats - Current Medication List Current Medications: Active Medications Albuterol Sulfate (Ventolin 0.083% Nebulizer Soln -) 1 amp NEB Q6H PRN PRN Reason: SHORT OF BREATH/WHEEZING Albuterol/Ipratropium (Duoneb -) 1 amp NEB TIDR [facility] Last Admin: 05/16/16 06:32 Dose: 1 amp Aspirin (Asa -) 300 mg RC DAILY [facility] Last Admin: 05/16/16 09:50 Dose: 300 mg Chlorhexidine Gluconate (Hibiclens For Decolonization -) 1 applic TP HS [facility] Last Admin: 05/15/16 21:14 Dose: 1 applic Epoetin Keith (Procrit -) 10,000 unit SQ MOWEFR@1000 [facility] Last Admin: 05/15/16 15:42 Dose: 10,000 unit Furosemide (Lasix Injection -) 40 mg IVPB DAILY [facility] Last Admin: 05/16/16 09:51 Dose: 40 mg Heparin Sodium (Porcine) (Heparin -) 5,000 unit SQ TID [facility] Last Admin: 05/16/16 06:23 Dose: 5,000 unit Aztreonam 1 gm/ Dextrose 50 mls @ 100 mls/hr IVPB BID [facility] Last Admin: 05/16/16 09:50 Dose: 100 mls/hr Pantoprazole Sodium (Protonix 40mg Ivpb (Pre-Docked)) 100 mls @ 200 mls/hr IVPB DAILY [facility] Last Admin: 05/16/16 09:49 Dose: 200 mls/hr Fentanyl 500 mcg/ Dextrose 100 mls @ 5 mls/hr IJ TITR [facility] PRN Reason: 25 MCG/HR Last Admin: 05/15/16 21:13 Dose: 10 mls/hr Propofol (Diprivan -) 100 mls @ 6.094 mls/hr IVPB TITR [facility]; 10 MCG/KG/MIN PRN Reason: Protocol Last Admin: 05/15/16 18:44 Dose: 18.281 mls/hr Mupirocin (Bactroban Ointment (For Decolonization) -) 1 applic NS BID [facility] Stop: 05/19/16 21:59 Last Admin: 05/16/16 09:50 Dose: 1 applic Nystatin (Nystop Powder -) 1 applic TP DAILY [facility] Last Admin: 05/16/16 09:49 Dose: 1 applic Prednisone (Deltasone -) 30 mg PO DAILY [facility] Last Admin: 05/16/16 09:53 Dose: 30 mg Vancomycin HCl (Vancomycin (Pre-Docked)) 1,000 mg IVPB Q48H [facility] - Objective Vital Signs: Vital Signs Temperature 96.3 F L 05/16/16 10:00 Pulse Rate 82 05/16/16 10:00 Respiratory Rate 18 05/16/16 10:00 Blood Pressure 137/71 05/16/16 10:00 O2 Sat by Pulse Oximetry (%) 98 05/16/16 09:11 HENT: Yes: Other (+ ETT) Cardiovascular: Yes: Regular Rate and Rhythm Respiratory: Yes: Other (= breath sounds b/l) Gastrointestinal: Yes: Soft Labs: CBC, BMP 05/16/16 05:15 05/16/16 05:15 INR, PTT INR 1.07 (0.82-1.09) 05/14/16 09:41 - ....Imaging EKG: Image Reviewed Assessment/Plan Assessment/Deanne Acute on Chronic COPD, acute respiratory failure Acute on chronic diastolic CHF Recent Sepsis, gram + Bacteremia, infected HD catheter- removed Recent TARYN on CKD CAD h/o stents REC: SOB-acute on chronic Resp failure: again required intubation recent admission also required intubation and s/p thoracentesis for pleural effusions -multifactorial secondary to COPD and CHF -currently receiving lasix 40mg iv daily, would increase to 40mg IV BID -monitor strict I/Os daily weights and bun/creat electrolytes -ae copd tx as per pulm/ccm CAD: s/p PCI with stents this past year -stable -thrombocytopenia on previous admission resolved -cont ASA 81mg daily -not on bblocker due to severe COPD -short runs PSVT and NSVT, keep K and Mg repleted.
[2016-05-16] MEDS ORDERED: VANCOMYCIN 1 GRAM (PRE-DOCKED) 1,000 MG/250 ML BAG IVPB SCH (11:45)
--- NOTE | 2016-05-16 12:26 | PN ---
Teaching Attending Note Name of Resident: Lambert Ventura ATTENDING PHYSICIAN STATEMENT I saw and evaluated the patient. I reviewed the resident's note and discussed the case with the resident. I agree with the resident's findings and plan as documented. SUBJECTIVE: Patient seen and examined in the ICU. Remains intubated and awake. AC Mode of vent, 35% FiO2. No pressors. CXR: Residual vascular congestion Intake & Output 05/13/16 05/14/16 05/15/16 05/16/16 23:59 23:59 23:59 23:59 Intake Total 490 1268 Output Total 100 350 25 Balance 390 918 -25 Weight 225 lb 223 lb 14.4 oz 228 lb 13.437 oz Last Vital Signs Temp Pulse Resp BP Pulse Ox 96.3 F L 82 18 136/59 97 05/16/16 10:00 05/16/16 11:55 05/16/16 11:55 05/16/16 11:55 05/16/16 10:40 Active Medications Albuterol Sulfate (Ventolin 0.083% Nebulizer Soln -) 1 amp NEB Q6H PRN PRN Reason: SHORT OF BREATH/WHEEZING Albuterol/Ipratropium (Duoneb -) 1 amp NEB TIDR [facility] Last Admin: 05/16/16 06:32 Dose: 1 amp Aspirin (Asa -) 300 mg RC DAILY [facility] Last Admin: 05/16/16 09:50 Dose: 300 mg Chlorhexidine Gluconate (Hibiclens For Decolonization -) 1 applic TP HS [facility] Last Admin: 05/15/16 21:14 Dose: 1 applic Epoetin Keith (Procrit -) 10,000 unit SQ MOWEFR@1000 [facility] Last Admin: 05/15/16 15:42 Dose: 10,000 unit Furosemide (Lasix Injection -) 40 mg IVPB DAILY [facility] Last Admin: 05/16/16 09:51 Dose: 40 mg Heparin Sodium (Porcine) (Heparin -) 5,000 unit SQ TID [facility] Last Admin: 05/16/16 06:23 Dose: 5,000 unit Aztreonam 1 gm/ Dextrose 50 mls @ 100 mls/hr IVPB BID [facility] Last Admin: 05/16/16 09:50 Dose: 100 mls/hr Pantoprazole Sodium (Protonix 40mg Ivpb (Pre-Docked)) 100 mls @ 200 mls/hr IVPB DAILY [facility] Last Admin: 05/16/16 09:49 Dose: 200 mls/hr Mupirocin (Bactroban Ointment (For Decolonization) -) 1 applic NS BID [facility] Stop: 05/19/16 21:59 Last Admin: 05/16/16 09:50 Dose: 1 applic Nystatin (Nystop Powder -) 1 applic TP DAILY [facility] Last Admin: 05/16/16 09:49 Dose: 1 applic Prednisone (Deltasone -) 30 mg PO DAILY [facility] Last Admin: 05/16/16 09:53 Dose: 30 mg Vancomycin HCl (Vancomycin (Pre-Docked)) 1,000 mg IVPB Q48H [facility] Last Admin: 05/16/16 12:10 Dose: 1,000 mg Constitutional: Yes: Intubated and awake Eyes: Yes: WNL HENT: Yes: Atraumatic, Normocephalic Neck: Yes: Supple, Trachea Midline Cardiovascular: Yes: Pulse Irregular Respiratory: Yes: Diminished, Intubated, Mechanically Ventilated, Rhonchi Gastrointestinal: Yes: Soft, Abdomen, Obese Extremities: Yes: Cool Edema: Yes Edema: LLE: 1+, RLE: 1+ Peripheral Pulses WNL: Yes Integumentary: Yes: WNL Labs: Laboratory Results - last 24 hr 05/14/16 05/14/16 05/14/16 09:00 09:00 09:30 WBC RBC Hgb Hct MCV MCHC RDW Plt Count MPV Neutrophils % Lymphocytes % Monocytes % Eosinophils % Basophils % Puncture Site ABG pH ABG pCO2 at Pt Temp ABG pO2 at Pt Temp ABG HCO3 ABG O2 Sat (Measured) ABG O2 Content ABG Base Excess Issac Test VBG pH 7.38 D POC VBG pCO2 41.0 D POC VBG pO2 21.3 L D O2 Delivery Device Oxygen Flow Rate Vent Mode Vent Rate Mechanical Rate PEEP Pressure Support Vent Sodium Potassium Chloride Carbon Dioxide Anion Gap BUN Creatinine Creat Clearance w eGFR Random Glucose Lactic Acid 1.347 Calcium Phosphorus Magnesium Total Bilirubin AST ALT Alkaline Phosphatase Total Protein Albumin Crossmatch See Detail 05/16/16 05/16/16 05/16/16 05:15 05:15 07:35 WBC 9.0 RBC 2.59 L Hgb 7.0 L D Hct 21.9 L MCV 84.4 MCHC 32.1 RDW 17.0 H Plt Count 210 MPV 7.7 Neutrophils % 89.4 H Lymphocytes % 6.2 L Monocytes % 4.3 D Eosinophils % 0.0 Basophils % 0.1 Puncture Site Left radial ABG pH 7.42 ABG pCO2 at Pt Temp 43.6 ABG pO2 at Pt Temp 71.2 D ABG HCO3 27.9 H ABG O2 Sat (Measured) 93.8 ABG O2 Content 10.2 L ABG Base Excess 3.7 H Issac Test Positive VBG pH POC VBG pCO2 POC VBG pO2 O2 Delivery Device Mec.vent Oxygen Flow Rate 35% Vent Mode A/c Vent Rate 18 Mechanical Rate Esprit PEEP 5.0 Pressure Support Vent 475 Sodium 139 Potassium 4.3 Chloride 98 Carbon Dioxide 30 Anion Gap 11 BUN 46 H D Creatinine 2.9 H Creat Clearance w eGFR 21.44 Random Glucose 136 H Lactic Acid Calcium 7.7 L Phosphorus 4.4 Magnesium 2.4 Total Bilirubin 0.3 D AST 10 L ALT < 6 L Alkaline Phosphatase 82 D Total Protein 4.7 L Albumin 2.0 L Crossmatch Assessment/Plan Hypoxemic/hypercapnic respiratory failure Sepsis - PNA, UTI COPD CHF CKD -Trial of extubation -Abx per ID -> consider de-escalate or stop -Nebs -Prednisone -> Monitor off IV Medrol -Diuresis -GI and DVT PPx Dr Vasquez CCTime 35"
--- NOTE | 2016-05-16 14:11 | PN ---
Progress Note, Physician History of Present Illness: Pt extubated. NAD Oriented and alert - Current Medication List Current Medications: Active Medications Albuterol Sulfate (Ventolin 0.083% Nebulizer Soln -) 1 amp NEB Q6H PRN PRN Reason: SHORT OF BREATH/WHEEZING Albuterol/Ipratropium (Duoneb -) 1 amp NEB TIDR [facility] Last Admin: 05/16/16 13:38 Dose: 1 amp Aspirin (Asa -) 300 mg RC DAILY [facility] Last Admin: 05/16/16 09:50 Dose: 300 mg Chlorhexidine Gluconate (Hibiclens For Decolonization -) 1 applic TP HS [facility] Last Admin: 05/15/16 21:14 Dose: 1 applic Epoetin Keith (Procrit -) 10,000 unit SQ MOWEFR@1000 [facility] Last Admin: 05/15/16 15:42 Dose: 10,000 unit Furosemide (Lasix Injection -) 40 mg IVPB DAILY [facility] Last Admin: 05/16/16 09:51 Dose: 40 mg Heparin Sodium (Porcine) (Heparin -) 5,000 unit SQ TID [facility] Last Admin: 05/16/16 06:23 Dose: 5,000 unit Aztreonam 1 gm/ Dextrose 50 mls @ 100 mls/hr IVPB BID [facility] Last Admin: 05/16/16 09:50 Dose: 100 mls/hr Pantoprazole Sodium (Protonix 40mg Ivpb (Pre-Docked)) 100 mls @ 200 mls/hr IVPB DAILY [facility] Last Admin: 05/16/16 09:49 Dose: 200 mls/hr Mupirocin (Bactroban Ointment (For Decolonization) -) 1 applic NS BID [facility] Stop: 05/19/16 21:59 Last Admin: 05/16/16 09:50 Dose: 1 applic Nystatin (Nystop Powder -) 1 applic TP DAILY [facility] Last Admin: 05/16/16 09:49 Dose: 1 applic Prednisone (Deltasone -) 30 mg PO DAILY [facility] Last Admin: 05/16/16 09:53 Dose: 30 mg Vancomycin HCl (Vancomycin (Pre-Docked)) 1,000 mg IVPB Q48H [facility] Last Admin: 05/16/16 12:10 Dose: 1,000 mg - Objective Vital Signs: Vital Signs Temperature 96.3 F L 05/16/16 10:00 Pulse Rate 85 02/07/17 14:00 Respiratory Rate 18 05/16/16 14:00 Blood Pressure 112/64 05/16/16 14:00 O2 Sat by Pulse Oximetry (%) 97 05/16/16 10:40 Constitutional: Yes: No Distress Eyes: Yes: Conjunctiva Clear. No: Sclera Icterus HENT: Yes: Atraumatic, Normocephalic Neck: Yes: Supple, Trachea Midline, Tenderness Cardiovascular: No: JVD Respiratory: Yes: CTA Bilaterally Gastrointestinal: Yes: Soft. No: Tenderness Extremities: No: Calf Tenderness Edema: LLE: 1+, RLE: 1+ Neurological: Yes: Alert, Oriented Labs: CBC, BMP 05/16/16 05:15 05/16/16 05:15 INR, PTT INR 1.07 (0.82-1.09) 05/14/16 09:41 Problem List - Problems (1) Acute and chronic respiratory failure ([id number]) Code(s): J96.20 - ACUTE AND CHR RESP FAILURE, UNSP W HYPOXIA OR HYPERCAPNIA Qualifiers: Respiratory failure complication: hypoxia and hypercapnia Qualified Code(s): J96.21 - Acute and chronic respiratory failure with hypoxia (2) Congestive heart failure Code(s): I50.9 - HEART FAILURE, UNSPECIFIED (3) Renal insufficiency Code(s): N28.9 - DISORDER OF KIDNEY AND URETER, UNSPECIFIED (4) Acute exacerbation of chronic obstructive pulmonary disease (COPD) Code(s): J44.1 - CHRONIC OBSTRUCTIVE PULMONARY DISEASE W (ACUTE) EXACERBATION Assessment/Plan Respiratory failure secondary to a combination of AECOPD and CHF. R/O pneumonia. Renal Insufficiency. Pt extubated. Respiratory status improved. Plan: Inhaled bronchodilators Diuresis Steroid taper O2 to maintain SaO2>90 Cardiac evaluation
--- NOTE | 2016-05-16 15:20 | PN ---
Teaching Attending Note Name of Resident: Melody Banks ATTENDING PHYSICIAN STATEMENT I saw and evaluated the patient. I reviewed the resident's note and discussed the case with the resident. I agree with the resident's findings and plan as documented. SUBJECTIVE: Patient is still intubated but off sedation now, able to communicate by nodding his head. Alert awake, comfortable. OBJECTIVE: Vital Signs Temperature 96.8 F L 05/16/16 15:19 Pulse Rate 74 05/16/16 15:19 Respiratory Rate 18 05/16/16 15:19 Blood Pressure 111/64 05/16/16 15:19 O2 Sat by Pulse Oximetry (%) 97 05/16/16 10:40 CBCD WBC 9.0 K/mm3 (4.0-10.0) 05/16/16 05:15 RBC 2.59 M/mm3 (4.00-5.60) L 05/16/16 05:15 Hgb 7.0 GM/dL (11.7-16.9) L D 05/16/16 05:15 Hct 21.9 % (35.4-49) L 05/16/16 05:15 MCV 84.4 fl (80-96) 05/16/16 05:15 MCHC 32.1 g/dl (32.0-35.9) 05/16/16 05:15 RDW 17.0 % (11.9-15.9) H 05/16/16 05:15 Plt Count 210 K/MM3 (134-434) 05/16/16 05:15 MPV 7.7 fl (7.5-11.1) 05/16/16 05:15 CMP Sodium 139 mmol/L (136-145) 05/16/16 05:15 Potassium 4.3 mmol/L (3.5-5.1) 05/16/16 05:15 Chloride 98 mmol/L (98-107) 05/16/16 05:15 Carbon Dioxide 30 mmol/L (21-32) 05/16/16 05:15 Anion Gap 11 (8-16) 05/16/16 05:15 BUN 46 mg/dL (7-18) H D 05/16/16 05:15 Creatinine 2.9 mg/dL (0.7-1.3) H 05/16/16 05:15 Creat Clearance w eGFR 21.44 (>60) 05/16/16 05:15 Random Glucose 136 mg/dL (74-106) H 05/16/16 05:15 Calcium 7.7 mg/dL (8.5-10.1) L 05/16/16 05:15 Total Bilirubin 0.3 mg/dL (0.2-1.0) D 05/16/16 05:15 AST 10 U/L (15-37) L 05/16/16 05:15 ALT < 6 U/L (12-78) L 05/16/16 05:15 Alkaline Phosphatase 82 U/L (45-117) D 05/16/16 05:15 Total Protein 4.7 g/dl (6.4-8.2) L 05/16/16 05:15 Albumin 2.0 g/dl (3.4-5.0) L 05/16/16 05:15 CARDIAC ENZYMES Creatine Kinase 26 IU/L (39-308) L 05/14/16 09:00 Troponin I < 0.02 ng/ml (0.00-0.05) 05/14/16 09:00 Current Medications Generic Name Dose Route Start Last Admin Trade Name Freq PRN Reason Stop Dose Admin Albuterol Sulfate 1 amp 05/14/16 14:59 Ventolin 0.083% Nebulizer Soln - NEB Q6H PRN SHORT OF BREATH/WHEEZING Albuterol/Ipratropium 1 amp 05/14/16 22:00 05/16/16 13:38 Duoneb - NEB 1 amp TIDR [facility] Administration Aspirin 300 mg 05/15/16 15:45 05/16/16 09:50 Asa - RC 300 mg DAILY [facility] Administration Chlorhexidine Gluconate 1 applic 05/14/16 22:00 05/15/16 21:14 Hibiclens For Decolonization - TP 1 applic HS [facility] Administration Epoetin Keith 10,000 unit 05/15/16 10:00 05/15/16 15:42 Procrit - SQ 10,000 unit MOWEFR@1000 [facility] Administration Furosemide 40 mg 05/15/16 10:00 05/16/16 09:51 Lasix Injection - IVPB 40 mg DAILY [facility] Administration Heparin Sodium (Porcine) 5,000 unit 05/14/16 22:00 05/16/16 06:23 Heparin - SQ 5,000 unit TID [facility] Administration Aztreonam 1 gm/ Dextrose 50 mls @ 100 mls/hr 05/14/16 22:00 05/16/16 09:50 IVPB 100 mls/hr BID [facility] Administration Pantoprazole Sodium 100 mls @ 200 mls/hr 05/15/16 10:00 05/16/16 09:49 Protonix 40mg Ivpb (Pre-Docked) IVPB 200 mls/hr DAILY [facility] Administration Mupirocin 1 applic 05/14/16 22:00 05/16/16 09:50 Bactroban Ointment (For Decolonization) - NS 05/19/16 21:59 1 applic BID [facility] Administration Nystatin 1 applic 05/15/16 10:00 05/16/16 09:49 Nystop Powder - TP 1 applic DAILY [facility] Administration Prednisone 30 mg 05/16/16 10:00 05/16/16 09:53 Deltasone - PO 30 mg DAILY [facility] Administration Vancomycin HCl 1,000 mg 05/16/16 11:45 05/16/16 12:10 Vancomycin (Pre-Docked) IVPB 1,000 mg Q48H [facility] Administration Home Medications Medication Instructions Recorded Acetaminophen W/ Codeine #3 1 tab PO Q6H PRN 02/18/16 [Tylenol # 3 -] Albuterol 0.083% Nebulizer Soni 1 amp NEB ASDIR PRN 02/18/16 [Ventolin 0.083% Nebulizer Soln -] Aspirin [Ecotrin] 81 mg PO DAILY 02/18/16 Acetaminophen [Tylenol .Regular 650 mg PO Q6H PRN #0 tablet 04/12/16 Strength -] Amlodipine Besylate [Norvasc -] 10 mg PO DAILY #30 tablet 04/12/16 Docusate Sodium [Colace -] 100 mg PO BID #60 capsule 04/12/16 Duloxetine HCl [Cymbalta -] 30 mg PO DAILY #30 capsule. 04/12/16 Pantoprazole Sodium [Protonix -] 40 mg PO DAILY tablet.ec 04/12/16 Sodium Chloride Nasal [place] [[place] 2 spray NS Q12H PRN #0 bottle 04/12/16 [place] Nasal [place] -] Epoetin Keith [Epogen] 10,000 unit SQ MOWEFR@1000 #12 dose 04/13/16 Ferrous Sulfate 325 mg PO BID 04/25/16 Guaifenesin [Mucinex] 600 mg PO Q12H 04/25/16 Mirtazapine [Remeron -] 7.5 mg PO HS 04/25/16 Prasugrel HCl [Effient] 10 mg PO DAILY 04/25/16 Pregabalin [Lyrica] 25 mg PO HS 04/25/16 Salmeterol/Fluticasone [Advair 1 inh PO BID 04/25/16 100Mcg/50Mcg -] Sennosides [Senna] 2 tab PO HS 04/25/16 Albuterol 2.5/Ipratropium 0.5 1 amp NEB TIDR amp 05/01/16 [Duoneb -] Tamsulosin HCl [Flomax -] 0.4 mg PO DAILY@0830 cap.er.24h 05/01/16 Torsemide [Demadex -] 40 mg PO DAILY tablet 05/01/16 Aa/Hydrolyzed Collagen, Whey [Lps 30 ml PO BID 05/14/16 15-30 Liquid] Ondansetron HCl [Zofran] 4 mg PO Q8H PRN 05/14/16 Sulfamethoxazole/Trimethoprim 1 tab PO BID 05/14/16 [Bactrim Ds -] ASSESSMENT AND PLAN: The patient is a 75-year-old man, from [facility], with PMHx of anemia, hypertension, hypercholesterolemia, CAD s/p 2 stents placements, congestive heart failure, chronic obstructive pulmonary disease, pleural effusions (s/p thoracentesis), Acute renal failure over chronic kidney disease, peripheral vascular disease, chronic lymphedema, MRSA in PermaCath was treated with IV antibiotic [facility] and hypoxia. While in ED. patient continued to be hypoxic on BiPAP and an ABG prior tube BiPAP showed that the patient was retaining CO2 therefore, Patient was intubated and was found to have a lot of purulent sputum around the vocal cords. A right femoral central line was placed for intravenous access as the patient has poor peripheral vasculature. A femoral line location was chosen as the patient has poor neck anatomy. Therefore patient was admitted to ICU. He is been pancultured and Levaquin and vancomycin has been given. He is currently on a propofol drip for sedation. # Acute hypoxic and hypercapnic respiratory failure s/p intubation on propofol drip continue in ICU. Patient is pancultured and started IV antibiotic Azactam Vancomycin IV q48h started ;Id and intencivist are consulted. # Acute UTI on Azactam , given Diflucan 200mg IV for yeast growth in the UA. # Acute over chronic kidney injury on stage 4 CKD with creatinine of 2.9 with BUN of 46 today , nephrology consult appreciated continue to monitor strict I/Os and daily weights. # CAD/chronic CHF cardiology consulted , not on b-regine due to severe COPD s/p PCI with stents this past year, cont.ASA 300mg rectally since intubated . # Anemia secondary to chronic illness, CKD, will monitor, type and screen for 2 units transfuse if needed # Hx of Healthcare-associated pneumonia with recent MRSA bacteremia s/p IV antibiotic # Hypertension stable at this time DVT PPX; Heparin 5000 u SQ Q8h ID, Nephro, CArdio are on the case, Intecivist trying to wean him off the intubation
--- NOTE | 2016-05-16 16:04 | PN ---
Physical Exam: SUBJECTIVE: Patient seen and examined at bedside. Intubated but awake.Denies CP , [place], abd. pain, n/v. OBJECTIVE: Vital Signs Period Temp Pulse Resp BP Sys/[place] Pulse Ox Last 24 Hr 96.3 F-98.1 F 57-85 18-27 94-137/50-71 95-100 GENERAL: Intubated but awake. HEAD: Normal with no signs of trauma. EYES: PERRL, sclera anicteric, conjunctiva clear. ENT: nare patent NECK: supple no JVD LUNGS: Intubated, no accessory muscle use. HEART: Irregular, S1, S2 without murmur, rub or gallop. ABDOMEN: Obese, Soft, nontender, nondistended, normoactive bowel sounds, no guarding, no rebound, no hepatosplenomegaly, no masses. EXTREMITIES: 2+ pulses, warm, well-perfused, 1+ edema. NEUROLOGICAL: sadated SKIN: Warm, dry, normal turgor,chronic LE stasis changes. Laboratory Results - last 24 hr 05/16/16 05/16/16 05/16/16 05:15 05:15 07:35 WBC 9.0 RBC 2.59 L Hgb 7.0 L D Hct 21.9 L MCV 84.4 MCHC 32.1 RDW 17.0 H Plt Count 210 MPV 7.7 Neutrophils % 89.4 H Lymphocytes % 6.2 L Monocytes % 4.3 D Eosinophils % 0.0 Basophils % 0.1 Puncture Site Left radial ABG pH 7.42 ABG pCO2 at Pt Temp 43.6 ABG pO2 at Pt Temp 71.2 D ABG HCO3 27.9 H ABG O2 Sat (Measured) 93.8 ABG O2 Content 10.2 L ABG Base Excess 3.7 H Issac Test Positive O2 Delivery Device Mec.vent Oxygen Flow Rate 35% Vent Mode A/c Vent Rate 18 Mechanical Rate Esprit PEEP 5.0 Pressure Support Vent 475 Sodium 139 Potassium 4.3 Chloride 98 Carbon Dioxide 30 Anion Gap 11 BUN 46 H D Creatinine 2.9 H Creat Clearance w eGFR 21.44 Random Glucose 136 H Calcium 7.7 L Phosphorus 4.4 Magnesium 2.4 Total Bilirubin 0.3 D AST 10 L ALT < 6 L Alkaline Phosphatase 82 D Total Protein 4.7 L Albumin 2.0 L Active Medications Generic Name Dose Route Start Last Admin Trade Name Freq PRN Reason Stop Dose Admin Albuterol Sulfate 1 amp 05/14/16 14:59 Ventolin 0.083% Nebulizer Soln - NEB Q6H PRN SHORT OF BREATH/WHEEZING Albuterol/Ipratropium 1 amp 05/14/16 22:00 05/16/16 13:38 Duoneb - NEB 1 amp TIDR [facility] Administration Aspirin 300 mg 05/15/16 15:45 05/16/16 09:50 Asa - RC 300 mg DAILY [facility] Administration Chlorhexidine Gluconate 1 applic 05/14/16 22:00 05/15/16 21:14 Hibiclens For Decolonization - TP 1 applic HS [facility] Administration Epoetin Keith 10,000 unit 05/15/16 10:00 05/15/16 15:42 Procrit - SQ 10,000 unit MOWEFR@1000 [facility] Administration Furosemide 40 mg 05/15/16 10:00 05/16/16 09:51 Lasix Injection - IVPB 40 mg DAILY [facility] Administration Heparin Sodium (Porcine) 5,000 unit 05/14/16 22:00 05/16/16 06:23 Heparin - SQ 5,000 unit TID [facility] Administration Aztreonam 1 gm/ Dextrose 50 mls @ 100 mls/hr 05/14/16 22:00 05/16/16 09:50 IVPB 100 mls/hr BID [facility] Administration Pantoprazole Sodium 100 mls @ 200 mls/hr 05/15/16 10:00 05/16/16 09:49 Protonix 40mg Ivpb (Pre-Docked) IVPB 200 mls/hr DAILY [facility] Administration Mupirocin 1 applic 05/14/16 22:00 05/16/16 09:50 Bactroban Ointment (For Decolonization) - NS 05/19/16 21:59 1 applic BID [facility] Administration Nystatin 1 applic 05/15/16 10:00 05/16/16 09:49 Nystop Powder - TP 1 applic DAILY [facility] Administration Prednisone 30 mg 05/16/16 10:00 05/16/16 09:53 Deltasone - PO 30 mg DAILY [facility] Administration Vancomycin HCl 1,000 mg 05/16/16 11:45 05/16/16 12:10 Vancomycin (Pre-Docked) IVPB 1,000 mg Q48H [facility] Administration ASSESSMENT/PLAN: 75 yo M with multiple hospital admissions in past year for acute respiratory failure. Admitted to ICU following intubation . Neuro: * Intubated but awake Pulm: * AC VENT 35%Fio2 * will extubate today * maintain o2 sat >90% * Prednisone 30mg PO daily * Duonebs TID * ALbuterol PRN. CV: * Lasix 40mg IV daily. * ASA 300mg [place] ID: * Vancomycin 1,000 mg IVPB Q48H * Aztreonam 1 gm/ Dextrose 50 mls @ 100 mls/hr IVPB BID * ID consult appreciated. Renal: * CKD eleanor 3 * repeat BMP in AM * avoid nephrotoxins. Prophylaxis: * DVT- Heparin * GI- protonix. DISPO: Continue to monitor in ICU. Visit type - Emergency Visit Emergency Visit: Yes ED Registration Date: 05/14/16 Care time: The patient presented to the Emergency Department on the above date and was hospitalized for further evaluation of their emergent condition. - New Patient This patient is new to me today: No - Critical Care Critical Care patient: Yes Total Critical Care Time (in minutes): 31 Critical Care Statement: The care of this patient involved high complexity decision making to prevent further life threatening deterioration of the patient 's condition and/or to evalute & treat vital organ system(s) failure or risk of failure.
--- NOTE | 2016-05-16 16:54 | PN ---
Progress Note, Physician History of Present Illness: patient looking much better awake and alert extubated today on ventimask doing well feels good no complaints - Current Medication List Current Medications: Active Medications Albuterol Sulfate (Ventolin 0.083% Nebulizer Soln -) 1 amp NEB Q6H PRN PRN Reason: SHORT OF BREATH/WHEEZING Albuterol/Ipratropium (Duoneb -) 1 amp NEB TIDR [facility] Last Admin: 05/16/16 13:38 Dose: 1 amp Aspirin (Asa -) 300 mg RC DAILY [facility] Last Admin: 05/16/16 09:50 Dose: 300 mg Chlorhexidine Gluconate (Hibiclens For Decolonization -) 1 applic TP HS [facility] Last Admin: 05/15/16 21:14 Dose: 1 applic Epoetin Keith (Procrit -) 10,000 unit SQ MOWEFR@1000 [facility] Last Admin: 05/15/16 15:42 Dose: 10,000 unit Furosemide (Lasix Injection -) 40 mg IVPB DAILY [facility] Last Admin: 05/16/16 09:51 Dose: 40 mg Heparin Sodium (Porcine) (Heparin -) 5,000 unit SQ TID [facility] Last Admin: 05/16/16 06:23 Dose: 5,000 unit Aztreonam 1 gm/ Dextrose 50 mls @ 100 mls/hr IVPB BID [facility] Last Admin: 05/16/16 09:50 Dose: 100 mls/hr Pantoprazole Sodium (Protonix 40mg Ivpb (Pre-Docked)) 100 mls @ 200 mls/hr IVPB DAILY [facility] Last Admin: 05/16/16 09:49 Dose: 200 mls/hr Mupirocin (Bactroban Ointment (For Decolonization) -) 1 applic NS BID [facility] Stop: 05/19/16 21:59 Last Admin: 05/16/16 09:50 Dose: 1 applic Nystatin (Nystop Powder -) 1 applic TP DAILY [facility] Last Admin: 05/16/16 09:49 Dose: 1 applic Prednisone (Deltasone -) 30 mg PO DAILY [facility] Last Admin: 05/16/16 09:53 Dose: 30 mg Vancomycin HCl (Vancomycin (Pre-Docked)) 1,000 mg IVPB Q48H [facility] Last Admin: 05/16/16 12:10 Dose: 1,000 mg - Objective Vital Signs: Vital Signs Temperature 96.8 F L 05/16/16 15:19 Pulse Rate 74 05/16/16 15:19 Respiratory Rate 18 05/16/16 15:19 Blood Pressure 111/64 05/16/16 15:19 O2 Sat by Pulse Oximetry (%) 97 05/16/16 10:40 Constitutional: Yes: No Distress, Calm Cardiovascular: Yes: Regular Rate and Rhythm Respiratory: Yes: Regular, On Venti-Mask, Poor Air Entry, Rhonchi Gastrointestinal: Yes: Normal Bowel Sounds, Soft Musculoskeletal: Yes: Other Extremities: Yes: Other Integumentary: Yes: Venous Stasis Changes Neurological: Yes: Alert, Oriented Psychiatric: Yes: Alert, Oriented Labs: CBC, BMP 05/16/16 05:15 05/16/16 05:15 INR, PTT INR 1.07 (0.82-1.09) 05/14/16 09:41 Assessment/Plan Problem List - Problems (1) Acute and chronic respiratory failure (vkozr-in-nnaokju) Code(s): J96.20 - ACUTE AND CHR RESP FAILURE, UNSP W HYPOXIA OR HYPERCAPNIA Qualifiers: Respiratory failure complication: hypoxia and hypercapnia Qualified Code(s): J96.21 - Acute and chronic respiratory failure with hypoxia (2) Congestive heart failure Code(s): I50.9 - HEART FAILURE, UNSPECIFIED (3) Renal insufficiency Code(s): N28.9 - DISORDER OF KIDNEY AND URETER, UNSPECIFIED (4) Acute exacerbation of chronic obstructive pulmonary disease (COPD) Code(s): J44.1 - CHRONIC OBSTRUCTIVE PULMONARY DISEASE W (ACUTE) EXACERBATION sepsis pneumonia i am worried that patient cherh be having mrsa pneumonia patinet is going iin repeated resp failure plan continue abx continue supportive measures cx negative of sputum other cx report negative so far nutrition will stop vanco continue aztreonam for now cc time 40 min
[2016-05-16] MEDS: CHLORHEXIDINE GLUCONATE 4% CLEANSER FOR DECOLONIZATION TP SCH (21:18)
[2016-05-17 05:59] LABS: MCHC 31.4 g/dl (32.0-35.9); MEAN PLT VOLUME 7.6 fl (7.5-11.1); PLATELET COUNT 256 K/MM3 (134-434); RDW 17.2 % (11.9-15.9)
[2016-05-17] MEDS: ALBUTEROL SO4 2.5/IPRATROPIUM 0.5 INH SOL 3 ML VIAL.NEB. NEB SCH ×2 (06:18→22:00)
[2016-05-17 06:31] LABS: ALBUMIN 2.4 g/dl (3.4-5.0); CREATININE 2.6 mg/dL (0.7-1.3); MAGNESIUM 2.4 mg/dL (1.8-2.4); PHOSPHOROUS 5.2 mg/dL (2.5-4.9)
[2016-05-17 06:33] LABS: BILIRUBIN,TOTAL 0.2 mg/dL (0.2-1.0); TOT PROT 5.5 g/dl (6.4-8.2)
[2016-05-17] MEDS: HEPARIN NA (PORCINE) 5,000 UNITS/ML 1ML VIAL SQ SCH ×2 (06:40→21:34)
[2016-05-17] MEDS: MUPIROCIN 2% TOPICAL OINTMENT FOR DECOLONIZATION NS SCH (09:17)
[2016-05-17] MEDS: NYSTATIN POWDER 100,000 UNITS/GM - 15 GM TOPICAL POWDER TP SCH (09:17)
[2016-05-17] MEDS: AZTREONAM 1 GM in DEXTROSE 5%-WATER - 50 ML IVPB SCH ×2 (09:17→21:38)
[2016-05-17] MEDS: FUROSEMIDE 40 MG/4 ML INJECTABLE VIAL IVPB SCH (09:17)
[2016-05-17] MEDS: ASPIRIN 300 MG SUPP.RECT RC SCH (09:17)
[2016-05-17] MEDS: predniSONE 10 MG TABLET (UD) PO SCH (09:17)
[2016-05-17] MEDS: EPOETIN ALFA 10,000 UNIT/1 ML VIAL SQ SCH (09:18)
[2016-05-17] MEDS: PANTOPRAZOLE SODIUM 100 ML IVPB SCH (09:18)
--- NOTE | 2016-05-17 09:29 | PN ---
Progress Note, Physician Chief Complaint: extubated and alert TELE: NSR, short self limited run of PSVT, possibly MAT. - Current Medication List Current Medications: Active Medications Albuterol Sulfate (Ventolin 0.083% Nebulizer Soln -) 1 amp NEB Q6H PRN PRN Reason: SHORT OF BREATH/WHEEZING Albuterol/Ipratropium (Duoneb -) 1 amp NEB TIDR [facility] Last Admin: 05/17/16 06:18 Dose: 1 amp Aspirin (Asa -) 300 mg RC DAILY [facility] Last Admin: 05/17/16 09:17 Dose: 300 mg Chlorhexidine Gluconate (Hibiclens For Decolonization -) 1 applic TP HS [facility] Last Admin: 05/16/16 21:18 Dose: 1 applic Epoetin Keith (Procrit -) 10,000 unit SQ MOWEFR@1000 [facility] Last Admin: 05/17/16 09:18 Dose: 10,000 unit Furosemide (Lasix Injection -) 40 mg IVPB DAILY [facility] Last Admin: 05/17/16 09:17 Dose: 40 mg Heparin Sodium (Porcine) (Heparin -) 5,000 unit SQ TID [facility] Last Admin: 05/17/16 06:40 Dose: Not Given Aztreonam 1 gm/ Dextrose 50 mls @ 100 mls/hr IVPB BID [facility] Last Admin: 05/17/16 09:17 Dose: 100 mls/hr Pantoprazole Sodium (Protonix 40mg Ivpb (Pre-Docked)) 100 mls @ 200 mls/hr IVPB DAILY [facility] Last Admin: 05/17/16 09:18 Dose: 200 mls/hr Mupirocin (Bactroban Ointment (For Decolonization) -) 1 applic NS BID [facility] Stop: 05/19/16 21:59 Last Admin: 05/17/16 09:17 Dose: 1 applic Nystatin (Nystop Powder -) 1 applic TP DAILY [facility] Last Admin: 05/17/16 09:17 Dose: 1 applic Prednisone (Deltasone -) 30 mg PO DAILY [facility] Last Admin: 05/17/16 09:17 Dose: 30 mg - Objective Vital Signs: Vital Signs Temperature 97.3 F L 05/17/16 07:50 Pulse Rate 82 05/17/16 07:50 Respiratory Rate 18 05/17/16 07:50 Blood Pressure 121/67 05/17/16 07:50 O2 Sat by Pulse Oximetry (%) 97 05/17/16 07:53 Constitutional: Yes: No Distress Eyes: Yes: Conjunctiva Clear Cardiovascular: Yes: Regular Rate and Rhythm Respiratory: Yes: Other (= breath sounds bilaterally. No wheezing.) Gastrointestinal: Yes: Soft, Abdomen, Obese Edema: Yes Edema: LLE: 1+, RLE: 1+ Neurological: Yes: Alert, Oriented Labs: CBC, BMP 05/17/16 05:15 05/17/16 05:15 INR, PTT INR 1.07 (0.82-1.09) 05/14/16 09:41 Laboratory Tests 05/16/16 05/16/16 05/17/16 05:15 05:15 05:15 WBC 9.0 10.0 Hgb 7.0 L D 8.6 L D Hct 21.9 L Plt Count 210 256 D Sodium 139 Potassium 4.3 BUN 46 H D Creatinine 2.9 H Phosphorus Magnesium AST ALT Alkaline Phosphatase 05/17/16 05:15 WBC Hgb Hct Plt Count Sodium 144 Potassium 4.1 BUN 46 H Creatinine 2.6 H Phosphorus 5.2 H Magnesium 2.4 AST 11 L ALT 7 L Alkaline Phosphatase 88 - ....Imaging EKG: Image Reviewed Assessment/Plan Assessment/Deanne Acute on Chronic COPD, acute respiratory failure, PNA Acute on chronic diastolic CHF Recent Sepsis, gram + Bacteremia, infected HD catheter- removed Recent TARYN on CKD CAD h/o stents REC: SOB-acute on chronic Resp failure: again required intubation recent admission also required intubation and s/p thoracentesis for pleural effusions -multifactorial secondary to COPD and chronic CHF and recurrent PNA -continue IV Lasix. -monitor strict I/Os daily weights and bun/creat electrolytes -ae copd/PNA treatment as per ICU team and ID CAD: s/p PCI with stents this past year -stable -thrombocytopenia on previous admission resolved -cont ASA 81mg daily -not on bblocker due to severe COPD -short runs PSVT and NSVT, keep K and Mg repleted. Continue telemetry
[2016-05-17] MEDS ORDERED: ALBUTEROL SO4 0.083% IH SOL 2.5 MG/3 ML VIAL.NEB. NEB PRN (09:32)
[2016-05-17] MEDS ORDERED: ASPIRIN 300 MG SUPP.RECT RC SCH (10:00)
[2016-05-17] MEDS ORDERED: AZTREONAM 1 GM in DEXTROSE 5%-WATER - 50 ML IVPB SCH (10:00)
[2016-05-17] MEDS ORDERED: PANTOPRAZOLE SODIUM 100 ML IVPB SCH (10:00)
[2016-05-17] MEDS ORDERED: predniSONE 10 MG TABLET (UD) PO SCH (10:00)
[2016-05-17] MEDS ORDERED: FUROSEMIDE 40 MG/4 ML INJECTABLE VIAL IVPB SCH (10:00)
[2016-05-17] MEDS ORDERED: NYSTATIN POWDER 100,000 UNITS/GM - 15 GM TOPICAL POWDER TP SCH (10:00)
[2016-05-17] MEDS ORDERED: EPOETIN ALFA 10,000 UNIT/1 ML VIAL SQ SCH (10:00)
--- NOTE | 2016-05-17 13:09 | PN ---
Teaching Attending Note Name of Resident: Lambert Ventura ATTENDING PHYSICIAN STATEMENT I saw and evaluated the patient. I reviewed the resident's note and discussed the case with the resident. I agree with the resident's findings and plan as documented. SUBJECTIVE: Pt seen and examined in the ICU. Extubated yesterday without incident. On ventimask 40%. States breathing is improving. Minimal cough. OBJECTIVE: Last Vital Signs Temp Pulse Resp BP Pulse Ox 97.3 F L 82 18 148/69 100 05/17/16 07:50 05/17/16 12:00 05/17/16 12:00 05/17/16 12:00 05/17/16 10:05 Intake & Output 05/14/16 05/15/16 05/16/16 05/17/16 23:59 23:59 23:59 23:59 Intake Total 490 1268 560 Output Total 979 824 5936 350 Balance 390 918 -1065 -350 Weight 225 lb 223 lb 14.4 oz 228 lb 13.437 oz 200 lb 9.93 oz Gen: mildly tachypneic at rest Heart: RRR Lung: distant breath sounds, scattered rhonchi Abd: soft, obese, nontender Ext: trace edema CBC, BMP 05/17/16 05:15 05/17/16 05:15 Active Medications Albuterol Sulfate (Ventolin 0.083% Nebulizer Soln -) 1 amp NEB Q6H PRN PRN Reason: SHORT OF BREATH/WHEEZING Albuterol/Ipratropium (Duoneb -) 1 amp NEB TIDR [facility] Aspirin (Asa -) 300 mg RC DAILY [facility] Last Admin: 05/17/16 12:04 Dose: Not Given Epoetin Keith (Procrit -) 10,000 unit SQ MOWEFR@1000 [facility] Last Admin: 05/17/16 12:05 Dose: Not Given Furosemide (Lasix Injection -) 40 mg IVPB DAILY [facility] Last Admin: 05/17/16 12:05 Dose: Not Given Heparin Sodium (Porcine) (Heparin -) 5,000 unit SQ TID [facility] Aztreonam 1 gm/ Dextrose 50 mls @ 100 mls/hr IVPB BID [facility] Last Admin: 05/17/16 12:05 Dose: Not Given Pantoprazole Sodium (Protonix 40mg Ivpb (Pre-Docked)) 100 mls @ 200 mls/hr IVPB DAILY [facility] Last Admin: 05/17/16 12:06 Dose: Not Given Nystatin (Nystop Powder -) 1 applic TP DAILY [facility] Last Admin: 05/17/16 12:05 Dose: Not Given Prednisone (Deltasone -) 30 mg PO DAILY [facility] Last Admin: 05/17/16 12:05 Dose: Not Given ASSESSMENT AND PLAN: s/p Acute on Chronic Hypoxic and Hypercapneic Respiratory Failure Acute on Chronic LV Diastolic Heart Failure UTI r/o Pneumonia Acute on Chronic Renal Failure COPD Morbid Obesity JOY/OHS CAD HTN - continue lasix - monitor urine output, creatinine - antibiotics per ID - taper FiO2 to keep SpO2 >90% - prednisone taper - inhaled bronchodilators - PO as tolerated - DVT prophylaxis - can monitor on floor
[2016-05-17] MEDS ORDERED: ALBUTEROL SO4 2.5/IPRATROPIUM 0.5 INH SOL 3 ML VIAL.NEB. NEB SCH (14:00)
[2016-05-17] MEDS ORDERED: HEPARIN NA (PORCINE) 5,000 UNITS/ML 1ML VIAL SQ SCH (14:00)
[2016-05-17] MEDS ORDERED: SODIUM CHLORIDE NASAL SPRAY 44 ML BOTTLE NS PRN (15:15)
[2016-05-17] MEDS ORDERED: ONDANSETRON 4 MG TABLET PO PRN (15:15)
--- NOTE | 2016-05-17 15:15 | PN ---
Physical Exam: SUBJECTIVE: Patient seen and examined at bedside. No overnight events. No new complaints. Breathing has improved. Denies CP, [place], palpitations, abd. pain, n/v. OBJECTIVE: Vital Signs Period Temp Pulse Resp BP Sys/[place] Pulse Ox Last 24 Hr 96.8 F-97.6 F 74-88 18-26 92-156/64-95 97-100 GENERAL: Intubated but awake. HEAD: Normal with no signs of trauma. EYES: PERRL, sclera anicteric, conjunctiva clear. ENT: nare patent NECK: supple no JVD LUNGS: Intubated, no accessory muscle use. HEART: Irregular, S1, S2 without murmur, rub or gallop. ABDOMEN: Obese, Soft, nontender, nondistended, normoactive bowel sounds, no guarding, no rebound, no hepatosplenomegaly, no masses. EXTREMITIES: 2+ pulses, warm, well-perfused, 1+ edema. NEUROLOGICAL: sadated SKIN: Warm, dry, normal turgor,chronic LE stasis changes Laboratory Results - last 24 hr 05/17/16 05/17/16 05:15 05:15 WBC 10.0 RBC 3.19 L D Hgb 8.6 L D Hct 27.4 L D MCV 86.0 MCHC 31.4 L RDW 17.2 H Plt Count 256 D MPV 7.6 Neutrophils % 77.0 Lymphocytes % 13.0 D Monocytes % 10.0 D Sodium 144 Potassium 4.1 Chloride 99 Carbon Dioxide 33 H Anion Gap 12 BUN 46 H Creatinine 2.6 H Creat Clearance w eGFR 24.32 Random Glucose 84 D Calcium 8.0 L Phosphorus 5.2 H Magnesium 2.4 Total Bilirubin 0.2 D AST 11 L ALT 7 L Alkaline Phosphatase 88 Total Protein 5.5 L Albumin 2.4 L Active Medications Generic Name Dose Route Start Last Admin Trade Name Freq PRN Reason Stop Dose Admin Albuterol Sulfate 1 amp 05/17/16 09:32 Ventolin 0.083% Nebulizer Soln - NEB Q6H PRN SHORT OF BREATH/WHEEZING Albuterol/Ipratropium 1 amp 05/17/16 14:00 05/17/16 14:06 Duoneb - NEB 1 amp TIDR [facility] Administration Aspirin 300 mg 05/17/16 10:00 05/17/16 12:04 Asa - RC Not Given DAILY [facility] Epoetin Keith 10,000 unit 05/17/16 10:00 05/17/16 12:05 Procrit - SQ Not Given MOWEFR@1000 [facility] Furosemide 40 mg 05/17/16 10:00 05/17/16 12:05 Lasix Injection - IVPB Not Given DAILY [facility] Heparin Sodium (Porcine) 5,000 unit 05/17/16 14:00 05/17/16 13:53 Heparin - SQ 5,000 unit TID [facility] Administration Aztreonam 1 gm/ Dextrose 50 mls @ 100 mls/hr 05/17/16 10:00 05/17/16 12:05 IVPB Not Given BID [facility] Pantoprazole Sodium 100 mls @ 200 mls/hr 05/17/16 10:00 05/17/16 12:06 Protonix 40mg Ivpb (Pre-Docked) IVPB Not Given DAILY [facility] Nystatin 1 applic 05/17/16 10:00 05/17/16 12:05 Nystop Powder - TP Not Given DAILY [facility] Prednisone 30 mg 05/17/16 10:00 05/17/16 12:05 Deltasone - PO Not Given DAILY [facility] ASSESSMENT/PLAN: 75 yo M with multiple hospital admissions in past year for acute respiratory failure. Admitted to ICU following intubation . Neuro: * AAOx3 * pain control Pulm: * Extubated yesterday. Currently on 35% Venti mask. * maintain o2 sat >90% * Prednisone 30mg PO daily * Duonebs TID * ALbuterol PRN. CV: * Lasix 40mg IV daily. * ASA 300mg AK ID: * Vancomycin d/c * Sputum (-) cultutes. * Aztreonam 1 gm/ Dextrose 50 mls @ 100 mls/hr IVPB BID * ID consult appreciated. Renal: * CKD eleanor 3 * repeat BMP in AM * avoid nephrotoxins. Prophylaxis: * DVT- Heparin * GI- protonix. DISPO: Transfer to floors. Visit type - Emergency Visit Emergency Visit: Yes ED Registration Date: 05/14/16 Care time: The patient presented to the Emergency Department on the above date and was hospitalized for further evaluation of their emergent condition. - New Patient This patient is new to me today: Yes Date on this admission: 05/17/16 - Critical Care Critical Care patient: Yes Total Critical Care Time (in minutes): 32 Critical Care Statement: The care of this patient involved high complexity decision making to prevent further life threatening deterioration of the patient 's condition and/or to evalute & treat vital organ system(s) failure or risk of failure.
--- NOTE | 2016-05-17 15:30 | PN ---
Physical Exam: SUBJECTIVE: Patient seen and examined Feels well extubated. eating breakfast without difficulty denies sob, headache, difficulty swallowing, abdominal pain, palpitations, chest pain. OBJECTIVE: Vital Signs Period Temp Pulse Resp BP Sys/[place] Pulse Ox Last 24 Hr 97.3 F-97.6 F 79-88 18-26 92-156/64-95 97-100 GENERAL: The patient is awake, alert, and fully oriented, in no acute distress. EYES: PERRL, extraocular movements intact, sclera anicteric, conjunctiva clear. ENT: Ears normal,oropharynx clear without exudates or erythema, edentulism. moist mucous membranes. NECK: Trachea midline, full range of motion, supple. LUNGS: mild wheezing in left lung, basilar crackles. HEART: Regular rate and rhythm, S1, S2 without murmur, rub or gallop. ABDOMEN: obese, Soft, nontender, nondistended, normoactive bowel sounds EXTREMITIES: 2+ pulses, thickened skin on b/l lower legs, mild erythema, no skin breakdown, 1+ b/l edema, cool. b/l strength at hip extension 3/5 Laboratory Results - last 24 hr 05/17/16 05/17/16 05:15 05:15 WBC 10.0 RBC 3.19 L D Hgb 8.6 L D Hct 27.4 L D MCV 86.0 MCHC 31.4 L RDW 17.2 H Plt Count 256 D MPV 7.6 Neutrophils % 77.0 Lymphocytes % 13.0 D Monocytes % 10.0 D Sodium 144 Potassium 4.1 Chloride 99 Carbon Dioxide 33 H Anion Gap 12 BUN 46 H Creatinine 2.6 H Creat Clearance w eGFR 24.32 Random Glucose 84 D Calcium 8.0 L Phosphorus 5.2 H Magnesium 2.4 Total Bilirubin 0.2 D AST 11 L ALT 7 L Alkaline Phosphatase 88 Total Protein 5.5 L Albumin 2.4 L Active Medications Active Medications Generic Name Dose Route Start Last Admin Trade Name Freq PRN Reason Stop Dose Admin Albuterol Sulfate 1 amp 05/17/16 18:54 Ventolin 0.083% Nebulizer Soln - NEB Q6H PRN SHORT OF BREATH/WHEEZING Albuterol/Ipratropium 1 amp 05/17/16 22:00 Duoneb - NEB TIDR [facility] Aspirin 300 mg 05/18/16 10:00 Asa - RC DAILY [facility] Duloxetine HCl 30 mg 05/18/16 10:00 Cymbalta - PO DAILY [facility] Epoetin Keith 10,000 unit 05/19/16 10:00 Procrit - SQ MOWEFR@1000 [facility] Furosemide 40 mg 05/18/16 10:00 Lasix Injection - IVPB DAILY [facility] Guaifenesin 600 mg 05/17/16 22:00 Mucinex - PO BID [facility] Heparin Sodium (Porcine) 5,000 unit 05/17/16 22:00 Heparin - SQ TID [facility] Aztreonam 1 gm/ Dextrose 50 mls @ 100 mls/hr 05/17/16 22:00 IVPB BID [facility] Nystatin 1 applic 05/18/16 10:00 Nystop Powder - TP DAILY [facility] Ondansetron HCl 4 mg 05/17/16 15:15 Zofran - PO Q8H PRN NAUSEA AND/OR VOMITING Pantoprazole Sodium 40 mg 05/18/16 10:00 Protonix - PO DAILY [facility] Prednisone 30 mg 05/18/16 10:00 Deltasone - PO DAILY [facility] Pregabalin 25 mg 05/17/16 22:00 Lyrica - PO HS [facility]PL[facility] Sodium Chloride 2 spray 05/17/16 15:15 [place] Nasal [place] - NS Q12H PRN NASAL CONGESTION ASSESSMENT/PLAN: 75 yr old with multiple pulmonary and cardiac co-morbidities, MRSA in sputum, recent ICU admission, BIBEMS for respiratory distress, with cardiac arrest and intubation in ED admitted to ICU for hypercapneic hypoxic respiratory failure secondary to acute CHf exacerbation. -stable for tele transfer #acute hypoxic hypercapneic respiratory failure likely secondary to diastolic chf - s/p extubation, now on venti mask 40% - diurese with lasix IVPB 40mg daily #COPD oxygen dependent likely exacerbated by HCAP, hx MRSA in sputum - abx Aztreonam 1gm BID IVPB, Vancomycin 1gm daily -- start 2/5 - solumedrol 30mg po daily - sputum cx with normal stiven #HTN - currently controlled - norvasc - lasix 40mg IVPB qdaily #CAD - cardiology consulted - ASA 81mg #CKD stage 3 - monitor BMP #Anemia, chronic - monitor H/H, transfuse if <8.0 - s/p 1 unit of prbc's 2/5 - iron studies in 02/2016 with normal serum iron, ferritin, iron saturation, with TIBC low - procrit qmonthly Code status: FULL CODE Diet - fat sodium controlled DVT; Heparin TId GI: protonix 40mg IVPB daily Visit type - Emergency Visit Emergency Visit: No - New Patient This patient is new to me today: No - Critical Care Critical Care patient: Yes Total Critical Care Time (in minutes): 36 Critical Care Statement: The care of this patient involved high complexity decision making to prevent further life threatening deterioration of the patient 's condition and/or to evalute & treat vital organ system(s) failure or risk of failure.
--- NOTE | 2016-05-17 16:11 | PN ---
Progress Note, Physician History of Present Illness: Pt extubated. NAD Oriented and alert - Current Medication List Current Medications: Active Medications Albuterol Sulfate (Ventolin 0.083% Nebulizer Soln -) 1 amp NEB Q6H PRN PRN Reason: SHORT OF BREATH/WHEEZING Albuterol/Ipratropium (Duoneb -) 1 amp NEB TIDR [facility] Last Admin: 05/17/16 14:06 Dose: 1 amp Aspirin (Asa -) 300 mg RC DAILY [facility] Last Admin: 05/17/16 12:04 Dose: Not Given Duloxetine HCl (Cymbalta -) 30 mg PO DAILY [facility] Epoetin Keith (Procrit -) 10,000 unit SQ MOWEFR@1000 [facility] Last Admin: 05/17/16 12:05 Dose: Not Given Furosemide (Lasix Injection -) 40 mg IVPB DAILY [facility] Last Admin: 05/17/16 12:05 Dose: Not Given Guaifenesin (Mucinex -) 600 mg PO Q12H [facility] Heparin Sodium (Porcine) (Heparin -) 5,000 unit SQ TID [facility] Last Admin: 05/17/16 13:53 Dose: 5,000 unit Aztreonam 1 gm/ Dextrose 50 mls @ 100 mls/hr IVPB BID [facility] Last Admin: 05/17/16 12:05 Dose: Not Given Pantoprazole Sodium (Protonix 40mg Ivpb (Pre-Docked)) 100 mls @ 200 mls/hr IVPB DAILY [facility] Last Admin: 05/17/16 12:06 Dose: Not Given Non-Formulary Medication (Aa/Hydrolyzed Collagen, Whey [Lps 15-30 Liquid]) 30 ml PO BID [facility] Nystatin (Nystop Powder -) 1 applic TP DAILY [facility] Last Admin: 05/17/16 12:05 Dose: Not Given Ondansetron HCl (Zofran -) 4 mg PO Q8H PRN PRN Reason: NAUSEA AND/OR VOMITING Prednisone (Deltasone -) 30 mg PO DAILY [facility] Last Admin: 05/17/16 12:05 Dose: Not Given Pregabalin (Lyrica -) 25 mg PO HS [facility] Sodium Chloride ([place] Nasal [place] -) 2 spray NS Q12H PRN PRN Reason: NASAL CONGESTION - Objective Vital Signs: Vital Signs Temperature 97.3 F L 05/17/16 07:50 Pulse Rate 82 05/17/16 12:00 Respiratory Rate 18 05/17/16 12:00 Blood Pressure 148/69 05/17/16 12:00 O2 Sat by Pulse Oximetry (%) 100 05/17/16 10:05 Constitutional: Yes: No Distress, Calm Eyes: No: Sclera Icterus HENT: Yes: Atraumatic, Normocephalic Neck: Yes: Supple, Trachea Midline Cardiovascular: No: Regular Rate and Rhythm, JVD Respiratory: Yes: CTA Bilaterally Gastrointestinal: Yes: Soft. No: Tenderness Extremities: No: Calf Tenderness Edema: No Neurological: Yes: Alert, Oriented Labs: CBC, BMP 05/17/16 05:15 05/17/16 05:15 INR, PTT INR 1.07 (0.82-1.09) 05/14/16 09:41 - ....Imaging X-ray: Report Reviewed, Image Reviewed (CM,small bilat effusions, mild congestion) Problem List - Problems (1) Acute and chronic respiratory failure ([id number]) Code(s): J96.20 - ACUTE AND CHR RESP FAILURE, UNSP W HYPOXIA OR HYPERCAPNIA Qualifiers: Respiratory failure complication: hypoxia and hypercapnia Qualified Code(s): J96.21 - Acute and chronic respiratory failure with hypoxia (2) Congestive heart failure Code(s): I50.9 - HEART FAILURE, UNSPECIFIED (3) Renal insufficiency Code(s): N28.9 - DISORDER OF KIDNEY AND URETER, UNSPECIFIED (4) Acute exacerbation of chronic obstructive pulmonary disease (COPD) Code(s): J44.1 - CHRONIC OBSTRUCTIVE PULMONARY DISEASE W (ACUTE) EXACERBATION Assessment/Plan Respiratory failure secondary to a combination of AECOPD and CHF. R/O pneumonia. Renal Insufficiency. Pt extubated. Respiratory status improved. Plan: Inhaled bronchodilators Steroid taper O2 to maintain SaO2>90 Cardiac evaluation Monitor renal function
--- NOTE | 2016-05-17 17:21 | PN ---
Progress Note, Physician History of Present Illness: patient stable says his left leg hard to move while right leg has normal movement breathing much better 'on ventimask - Current Medication List Current Medications: Active Medications Albuterol Sulfate (Ventolin 0.083% Nebulizer Soln -) 1 amp NEB Q6H PRN PRN Reason: SHORT OF BREATH/WHEEZING Albuterol/Ipratropium (Duoneb -) 1 amp NEB TIDR [facility] Last Admin: 05/17/16 14:06 Dose: 1 amp Aspirin (Asa -) 300 mg RC DAILY [facility] Last Admin: 05/17/16 12:04 Dose: Not Given Duloxetine HCl (Cymbalta -) 30 mg PO DAILY [facility] Epoetin Keith (Procrit -) 10,000 unit SQ MOWEFR@1000 [facility] Last Admin: 05/17/16 12:05 Dose: Not Given Furosemide (Lasix Injection -) 40 mg IVPB DAILY [facility] Last Admin: 05/17/16 12:05 Dose: Not Given Guaifenesin (Mucinex -) 600 mg PO BID [facility] Heparin Sodium (Porcine) (Heparin -) 5,000 unit SQ TID [facility] Last Admin: 05/17/16 13:53 Dose: 5,000 unit Aztreonam 1 gm/ Dextrose 50 mls @ 100 mls/hr IVPB BID [facility] Last Admin: 05/17/16 12:05 Dose: Not Given Pantoprazole Sodium (Protonix 40mg Ivpb (Pre-Docked)) 100 mls @ 200 mls/hr IVPB DAILY [facility] Last Admin: 05/17/16 12:06 Dose: Not Given Nystatin (Nystop Powder -) 1 applic TP DAILY [facility] Last Admin: 05/17/16 12:05 Dose: Not Given Ondansetron HCl (Zofran -) 4 mg PO Q8H PRN PRN Reason: NAUSEA AND/OR VOMITING Prednisone (Deltasone -) 30 mg PO DAILY [facility] Last Admin: 05/17/16 12:05 Dose: Not Given Pregabalin (Lyrica -) 25 mg PO HS [facility] Sodium Chloride ([place] -) 2 spray NS Q12H PRN PRN Reason: NASAL CONGESTION - Objective Vital Signs: Vital Signs Temperature 97.3 F L 05/17/16 07:50 Pulse Rate 112 H 05/17/16 16:00 Respiratory Rate 18 05/17/16 16:00 Blood Pressure 117/75 05/17/16 16:00 O2 Sat by Pulse Oximetry (%) 100 05/17/16 10:05 Constitutional: Yes: No Distress, Calm Cardiovascular: Yes: Regular Rate and Rhythm Respiratory: Yes: Regular, On Venti-Mask, Rhonchi Gastrointestinal: Yes: Normal Bowel Sounds, Soft Musculoskeletal: Yes: Other Extremities: Yes: Other Edema: LLE: 1+, RLE: 1+ Integumentary: Yes: Other Neurological: Yes: Alert, Oriented Psychiatric: Yes: Alert Labs: CBC, BMP 05/17/16 05:15 05/17/16 05:15 INR, PTT INR 1.07 (0.82-1.09) 05/14/16 09:41 Assessment/Plan Problem List - Problems (1) Acute and chronic respiratory failure ([id number]) Code(s): J96.20 - ACUTE AND CHR RESP FAILURE, UNSP W HYPOXIA OR HYPERCAPNIA Qualifiers: Respiratory failure complication: hypoxia and hypercapnia Qualified Code(s): J96.21 - Acute and chronic respiratory failure with hypoxia (2) Congestive heart failure Code(s): I50.9 - HEART FAILURE, UNSPECIFIED (3) Renal insufficiency Code(s): N28.9 - DISORDER OF KIDNEY AND URETER, UNSPECIFIED (4) Acute exacerbation of chronic obstructive pulmonary disease (COPD) Code(s): J44.1 - CHRONIC OBSTRUCTIVE PULMONARY DISEASE W (ACUTE) EXACERBATION sepsis pneumonia i am worried that patient [facility] be having mrsa pneumonia patinet is going iin repeated resp failure plan continue abx continue supportive measures patient leg movement needs to be evaluated left leg decreased movement otherwise stable cc time 40 min
--- NOTE | 2016-05-17 18:48 | PN ---
Teaching Attending Note Name of Resident: Melody Banks ATTENDING PHYSICIAN STATEMENT I saw and evaluated the patient. I reviewed the resident's note and discussed the case with the resident. I agree with the resident's findings and plan as documented. SUBJECTIVE: no fever or chills, no abd pain , no CP or SOB . feels much better OBJECTIVE: NAD Cv : RRR Lungs: decreased breath sounds at bases ,bibasilar crackles ext : 2 + pitting edema ,minimal erythema and thick skin with no discharge ASSESSMENT AND PLAN: 75 year-old man with a PMHx of HTN, PVD, COPD, CKD (baseline Cr 1.8), nephrolithiasis, D CHF , CAD s/p stenting in 03/23 , chronic LE lymphedema and recent hospitalizations for acute resp failure from acute CHF who presented with SOB and was found to have acute hypoxic hypercapnic resp failure . 1- Acute hypoxic hypercapnic resp failure due to acute on chronic diastolic heart failure s/p extubation cont lasix Iv daily , I&O - 1 L yesterday . weight has imporved At some point will consider demadex which worked for him in past as oral lasix did not possible HCAP : cont ABx , vanco given , and now on aztreonam tele reviewed, episodes of SVT last night cont venti mask cont prednisone , pt is on a steady dose of 30 as out pt 2- CKD: stable cr , cont to monitor 3- Normocytic anemia. stable at base line cont procrit 4- HTN: cont norvasc 5- CAD : Stenting 03/23 . Cont asa Transfer to tele .
[2016-05-17] MEDS ORDERED: morphine CARPU-JECT 2 MG/1 ML DISP.SYRIN IVPUSH ONE (20:19)
[2016-05-17] MEDS: MIRTAZAPINE 15 MG TABLET (FP) PO SCH (21:34)
[2016-05-17] MEDS: guaiFENesin 600 MG TABLET.ER (FP) PO SCH (21:34)
[2016-05-17] MEDS: FERROUS SO4 325 MG TABLET (FP) PO SCH (21:34)
[2016-05-17] MEDS: PREGABALIN 25 MG CAPSULE PO SCH (21:34)
[2016-05-17] MEDS: DOCUSATE SODIUM 100 MG CAPSULE (FP) PO SCH (21:34)
[2016-05-17] MEDS ORDERED: PT OWN MED DRAWER 7, Y5N ONE (21:37)
[2016-05-17] MEDS ORDERED: PATIENT'S OWN MEDICATION (NON-FORMULARY) (Aa/Hydrolyzed Collagen, Whey [Lps 15-30 Liquid] PO SCH (22:00)
[2016-05-18] MEDS: ALBUTEROL SO4 2.5/IPRATROPIUM 0.5 INH SOL 3 ML VIAL.NEB. NEB SCH ×3 (05:50→23:05)
[2016-05-18 05:59] LABS: MCH 27.3 pg (25.7-33.7); MCHC 31.4 g/dl (32.0-35.9); MEAN PLT VOLUME 7.3 fl (7.5-11.1); PLATELET COUNT 247 K/MM3 (134-434); WHITE BLOOD COUNT 7.2 K/mm3 (4.0-10.0)
[2016-05-18] MEDS: HEPARIN NA (PORCINE) 5,000 UNITS/ML 1ML VIAL SQ SCH ×3 (06:22→22:36)
[2016-05-18 06:47] LABS: ALBUMIN 2.3 g/dl (3.4-5.0); ANION GAP 8 (8-16); CALCIUM 7.6 mg/dL (8.5-10.1); CO2 36 mmol/L (21-32); GLUCOSE,RANDOM 90 mg/dL (74-106); MAGNESIUM 2.2 mg/dL (1.8-2.4)
[2016-05-18 06:51] LABS: ALK PHOS 79 U/L (45-117); BILIRUBIN,TOTAL 0.2 mg/dL (0.2-1.0); CREATININE 2.2 mg/dL (0.7-1.3); PHOSPHOROUS 4.2 mg/dL (2.5-4.9); SGOT/AST 14 U/L (15-37); SGPT/ALT < 6 U/L (12-78); TOT PROT 5.3 g/dl (6.4-8.2)
[2016-05-18] MEDS: TAMSULOSIN HCL 0.4 MG CAP.ER.24H (FP) PO SCH (08:45)
--- NOTE | 2016-05-18 09:00 | PN ---
Physical Exam: SUBJECTIVE: Patient seen and examined. had pain behind his left knee for which he received pain medications.feels comfortable on nasal cannula. Has good appetitie denies SOB, chest pain, abdominal pain. OBJECTIVE: Vital Signs Period Temp Pulse Resp BP Sys/[place] Pulse Ox Last 24 Hr 97 F-99 F 76-112 18-22 107-148/49-88 100-100 GENERAL: The patient is awake, alert, and fully oriented, in no acute distress. HEAD: Normal with no signs of trauma. EYES: PERRL, extraocular movements intact, sclera anicteric, conjunctiva clear. No ptosis. no sinus tenderness ENT: oropharynx clear without exudates, moist mucous membranes. eduntulism LUNGS: quiet on left mid-lower lung, clear at apex. right lung clear without wheezing, fine basilar crackle. no wheezing. HEART: Regular rate and rhythm, S1, S2 without murmur, rub or gallop. ABDOMEN: obese, Soft, nontender, nondistended, normoactive bowel sounds, no guarding EXTREMITIES: 2+ pulses, thickened skin on b/l lower legs, mild erythema, no skin breakdown, 1+ b/l edema, warm. 3/5 strength at right hip, knee. 4/5 on left hip and knee. 5/5 on plantar/dorsiflexion at toes. Laboratory Results - last 24 hr 05/18/16 05/18/16 05:25 05:25 WBC 7.2 RBC 2.99 L Hgb 8.2 L Hct 26.0 L MCV 87.0 MCHC 31.4 L RDW 17.0 H Plt Count 247 MPV 7.3 L Neutrophils % 78.0 Lymphocytes % 13.0 Monocytes % 8.0 Eosinophils % 1.0 D Sodium 146 H Potassium 4.5 Chloride 102 Carbon Dioxide 36 H Anion Gap 8 BUN 45 H Creatinine 2.2 H Creat Clearance w eGFR 29.49 Random Glucose 90 Calcium 7.6 L Phosphorus 4.2 Magnesium 2.2 Total Bilirubin 0.2 AST 14 L D ALT < 6 L Alkaline Phosphatase 79 Total Protein 5.3 L Albumin 2.3 L Active Medications Generic Name Dose Route Start Last Admin Trade Name Freq PRN Reason Stop Dose Admin Albuterol Sulfate 1 amp 05/17/16 18:54 Ventolin 0.083% Nebulizer Soln - NEB Q6H PRN SHORT OF BREATH/WHEEZING Albuterol/Ipratropium 1 amp 05/17/16 22:00 05/18/16 05:50 Duoneb - NEB 1 amp TIDR [facility] Administration Amlodipine Besylate 10 mg 05/18/16 10:00 Norvasc - PO DAILY [facility] Aspirin 81 mg 05/18/16 10:00 Ecotrin - PO DAILY [facility] Docusate Sodium 100 mg 05/17/16 22:00 05/17/16 21:34 Colace - PO 100 mg BID [facility] Administration Duloxetine HCl 60 mg 05/18/16 10:00 Cymbalta - PO DAILY [facility] Epoetin Keith 10,000 unit 05/19/16 10:00 Procrit - SQ MOWEFR@1000 [facility] Ferrous Sulfate 325 mg 05/17/16 22:00 05/17/16 21:34 Feosol - PO 325 mg BID [facility] Administration Furosemide 40 mg 05/18/16 10:00 Lasix Injection - IVPB DAILY [facility] Guaifenesin 600 mg 05/17/16 22:00 05/17/16 21:34 Mucinex - PO 600 mg BID [facility] Administration Heparin Sodium (Porcine) 5,000 unit 05/17/16 22:00 05/18/16 06:22 Heparin - SQ 5,000 unit TID [facility] Administration Aztreonam 1 gm/ Dextrose 50 mls @ 100 mls/hr 05/17/16 22:00 05/17/16 21:38 IVPB 100 mls/hr BID [facility] Administration Mirtazapine 7.5 mg 05/17/16 22:00 05/17/16 21:34 Remeron - PO 7.5 mg HS [facility] Administration Nystatin 1 applic 05/18/16 10:00 Nystop Powder - TP DAILY [facility] Ondansetron HCl 4 mg 05/17/16 15:15 Zofran - PO Q8H PRN NAUSEA AND/OR VOMITING Pantoprazole Sodium 40 mg 05/18/16 10:00 Protonix - PO DAILY [facility] Polyethylene Glycol 17 gm 05/18/16 10:00 Miralax (For Daily Use) - PO DAILY [facility] Prasugrel 10 mg 05/18/16 10:00 Effient - PO DAILY [facility] Prednisone 30 mg 05/18/16 10:00 Deltasone - PO DAILY [facility] Pregabalin 25 mg 05/17/16 22:00 05/17/16 21:34 Lyrica - PO 25 mg HS [facility] Administration Sodium Chloride 2 spray 05/17/16 15:15 [place] - NS Q12H PRN NASAL CONGESTION Tamsulosin HCl 0.4 mg 05/18/16 08:30 05/18/16 08:45 Flomax - PO 0.4 mg DAILY@0830 [facility] Administration Vancomycin HCl 1,000 mg 05/18/16 12:00 Vancomycin (Pre-Docked) IVPB 05/18/16 12:01 ONCE ONE ASSESSMENT/PLAN: 75 yr old with multiple pulmonary and cardiac co-morbidities, MRSA in sputum, recent ICU admission, BIBEMS for respiratory distress, with cardiac arrest and intubation in ED admitted to ICU for hypercapneic hypoxic respiratory failure secondary to acute CHf exacerbation. #acute hypoxic hypercapneic respiratory failure likely secondary to diastolic chf - improved - s/p extubation, now on venti mask 40% - diurese with lasix IVPB 40mg daily - net neg fluid balance and weight decreased. #deconditioning - PT #COPD oxygen dependent likely exacerbated by HCAP, hx MRSA in sputum - abx Aztreonam 1gm BID IVPB, Vancomycin 1gm daily -- start 2/5 - vanc trough 9 today - solumedrol 30mg po daily - sputum cx with normal stiven #HTN - currently controlled - norvasc 10mg daily - lasix 40mg IVPB qdaily #CAD - cardiology consulted - ASA 81mg #CKD stage 3 - stable - monitor BMP #Anemia, chronic - monitor H/H, transfuse if <8.0 - s/p 1 unit of prbc's /5 - iron studies in 02/2016 with normal serum iron, ferritin, iron saturation, with TIBC low - procrit qmonthly Code status: FULL CODE Diet - fat sodium controlled DVT; Heparin TId GI: protonix 40mg IVPB daily Visit type - Emergency Visit Emergency Visit: No - New Patient This patient is new to me today: No - Critical Care Critical Care patient: Yes Total Critical Care Time (in minutes): 34 Critical Care Statement: The care of this patient involved high complexity decision making to prevent further life threatening deterioration of the patient 's condition and/or to evalute & treat vital organ system(s) failure or risk of failure.
[2016-05-18] MEDS ORDERED: PT OWN MED DRAWER 7, Y5N ONE ×2 (09:05→09:15)
[2016-05-18] MEDS: DOCUSATE SODIUM 100 MG CAPSULE (FP) PO SCH ×2 (09:07→22:35)
[2016-05-18] MEDS: AZTREONAM 1 GM in DEXTROSE 5%-WATER - 50 ML IVPB SCH ×2 (09:07→22:50)
[2016-05-18] MEDS: DULoxetine HCL 30 MG CAPSULE.DR (FP) PO SCH (09:08)
[2016-05-18] MEDS: predniSONE 10 MG TABLET (UD) PO SCH (09:08)
[2016-05-18] MEDS: ASPIRIN COATED 81 MG TABLET.EC PO SCH (09:08)
[2016-05-18] MEDS: PANTOPRAZOLE 40 MG TABLET (FP) PO SCH (09:09)
[2016-05-18] MEDS: amLODIPine BESYLATE 10 MG TABLET (FP) PO SCH (09:09)
[2016-05-18] MEDS: guaiFENesin 600 MG TABLET.ER (FP) PO SCH ×2 (09:09→22:35)
[2016-05-18] MEDS: FERROUS SO4 325 MG TABLET (FP) PO SCH ×2 (09:09→22:35)
[2016-05-18] MEDS: POLYETHYLENE GLYCOL 3350 119 GM BTL PO SCH (09:13)
[2016-05-18] MEDS: NYSTATIN POWDER 100,000 UNITS/GM - 15 GM TOPICAL POWDER TP SCH (09:18)
--- NOTE | 2016-05-18 09:54 | PN ---
Progress Note (short form) - Note Progress Note: Patient seen and examined in the ICU. Remains extubated. Now on NC O2. Generalized body aches. Some dry cough. CXR: Possible mild increase in left effusion / no other gross change Intake & Output 05/15/16 05/16/16 05/17/16 05/18/16 23:59 23:59 23:59 23:59 Intake Total 1268 560 950 Output Total 350 1625 2250 400 Balance 918 -1065 -1300 -400 Weight 223 lb 14.4 oz 228 lb 13.437 oz 200 lb 9.93 oz Last Vital Signs Temp Pulse Resp BP Pulse Ox 97.5 F L 79 22 124/49 100 05/18/16 08:00 05/18/16 08:00 05/18/16 08:00 05/18/16 08:00 05/18/16 08:10 Active Medications Albuterol Sulfate (Ventolin 0.083% Nebulizer Soln -) 1 amp NEB Q6H PRN PRN Reason: SHORT OF BREATH/WHEEZING Albuterol/Ipratropium (Duoneb -) 1 amp NEB TIDR [facility] Last Admin: 05/18/16 05:50 Dose: 1 amp Amlodipine Besylate (Norvasc -) 10 mg PO DAILY [facility] Last Admin: 05/18/16 09:09 Dose: 10 mg Aspirin (Ecotrin -) 81 mg PO DAILY [facility] Last Admin: 05/18/16 09:08 Dose: 81 mg Docusate Sodium (Colace -) 100 mg PO BID [facility] Last Admin: 05/18/16 09:07 Dose: 100 mg Duloxetine HCl (Cymbalta -) 60 mg PO DAILY [facility] Last Admin: 05/18/16 09:08 Dose: 60 mg Epoetin Keith (Procrit -) 10,000 unit SQ MOWEFR@1000 [facility] Ferrous Sulfate (Feosol -) 325 mg PO BID [facility] Last Admin: 05/18/16 09:09 Dose: 325 mg Furosemide (Lasix Injection -) 40 mg IVPB DAILY [facility] Last Admin: 05/18/16 09:09 Dose: 40 mg Guaifenesin (Mucinex -) 600 mg PO BID [facility] Last Admin: 05/18/16 09:09 Dose: 600 mg Heparin Sodium (Porcine) (Heparin -) 5,000 unit SQ TID [facility] Last Admin: 05/18/16 06:22 Dose: 5,000 unit Aztreonam 1 gm/ Dextrose 50 mls @ 100 mls/hr IVPB BID [facility] Last Admin: 05/18/16 09:07 Dose: 100 mls/hr Mirtazapine (Remeron -) 7.5 mg PO HS [facility] Last Admin: 05/17/16 21:34 Dose: 7.5 mg Nystatin (Nystop Powder -) 1 applic TP DAILY [facility] Last Admin: 05/18/16 09:18 Dose: 1 applic Ondansetron HCl (Zofran -) 4 mg PO Q8H PRN PRN Reason: NAUSEA AND/OR VOMITING Pantoprazole Sodium (Protonix -) 40 mg PO DAILY [facility] Last Admin: 05/18/16 09:09 Dose: 40 mg Polyethylene Glycol (Miralax (For Daily Use) -) 17 gm PO DAILY [facility] Last Admin: 05/18/16 09:13 Dose: 17 gm Prasugrel (Effient -) 10 mg PO DAILY [facility] Last Admin: 05/18/16 09:15 Dose: 10 mg Prednisone (Deltasone -) 30 mg PO DAILY [facility] Last Admin: 05/18/16 09:08 Dose: 30 mg Pregabalin (Lyrica -) 25 mg PO HS [facility] Last Admin: 05/17/16 21:34 Dose: 25 mg Sodium Chloride ([place] Nas[place] -) 2 spray NS Q12H PRN PRN Reason: NASAL CONGESTION Tamsulosin HCl (Flomax -) 0.4 mg PO DAILY@0830 [facility] Last Admin: 05/18/16 08:45 Dose: 0.4 mg Vancomycin HCl (Vancomycin (Pre-Docked)) 1,000 mg IVPB ONCE ONE Stop: 05/18/16 12:01 Gen: mildly tachypneic at rest Heart: RRR Lung: distant breath sounds, scattered rhonchi Abd: soft, obese, nontender Ext: trace edema Laboratory Results - last 24 hr 05/14/16 05/18/16 05/18/16 09:00 05:25 05:25 WBC 7.2 RBC 2.99 L Hgb 8.2 L Hct 26.0 L MCV 87.0 MCHC 31.4 L RDW 17.0 H Plt Count 247 MPV 7.3 L Neutrophils % 78.0 Lymphocytes % 13.0 Monocytes % 8.0 Eosinophils % 1.0 D Sodium 146 H Potassium 4.5 Chloride 102 Carbon Dioxide 36 H Anion Gap 8 BUN 45 H Creatinine 2.2 H Creat Clearance w eGFR 29.49 Random Glucose 90 Calcium 7.6 L Phosphorus 4.2 Magnesium 2.2 Total Bilirubin 0.2 AST 14 L D ALT < 6 L Alkaline Phosphatase 79 Total Protein 5.3 L Albumin 2.3 L Blood Type A POSITIVE Antibody Screen Negative Crossmatch See Detail ASSESSMENT AND PLAN: S/P Acute on Chronic Hypoxic and Hypercapneic Respiratory Failure Acute on Chronic LV Diastolic Heart Failure UTI (?) Pneumonia Acute on Chronic Renal Failure COPD Morbid Obesity JOY/OHS CAD HTN - continue daily lasix - monitor urine output, creatinine - antibiotics per ID - taper FiO2 to keep SpO2 >90% - prednisone taper - inhaled bronchodilators - PO as tolerated - DVT prophylaxis - can monitor on floor Dr Vasquez
[2016-05-18] MEDS ORDERED: DULoxetine HCL 30 MG CAPSULE.DR (FP) PO SCH (10:00)
[2016-05-18] MEDS ORDERED: ASPIRIN 300 MG SUPP.RECT RC SCH (10:00)
[2016-05-18] MEDS ORDERED: FUROSEMIDE 40 MG/4 ML INJECTABLE VIAL IVPB SCH (10:00)
[2016-05-18] MEDS ORDERED: PRASUGREL HCL 10 MG TAB PO SCH (10:00)
--- NOTE | 2016-05-18 10:49 | PN ---
Progress Note, Physician History of Present Illness: seen and examined today in nad. awake, alert, oriented, on venti mask. states hes having LLE weakness - Current Medication List Current Medications: Active Medications Albuterol Sulfate (Ventolin 0.083% Nebulizer Soln -) 1 amp NEB Q6H PRN PRN Reason: SHORT OF BREATH/WHEEZING Albuterol/Ipratropium (Duoneb -) 1 amp NEB TIDR [facility] Last Admin: 05/18/16 05:50 Dose: 1 amp Amlodipine Besylate (Norvasc -) 10 mg PO DAILY [facility] Last Admin: 05/18/16 09:09 Dose: 10 mg Aspirin (Ecotrin -) 81 mg PO DAILY [facility] Last Admin: 05/18/16 09:08 Dose: 81 mg Docusate Sodium (Colace -) 100 mg PO BID [facility] Last Admin: 05/18/16 09:07 Dose: 100 mg Duloxetine HCl (Cymbalta -) 60 mg PO DAILY [facility] Last Admin: 05/18/16 09:08 Dose: 60 mg Epoetin Keith (Procrit -) 10,000 unit SQ MOWEFR@1000 [facility] Ferrous Sulfate (Feosol -) 325 mg PO BID [facility] Last Admin: 05/18/16 09:09 Dose: 325 mg Furosemide (Lasix Injection -) 40 mg IVPB DAILY [facility] Last Admin: 05/18/16 09:09 Dose: 40 mg Guaifenesin (Mucinex -) 600 mg PO BID [facility] Last Admin: 05/18/16 09:09 Dose: 600 mg Heparin Sodium (Porcine) (Heparin -) 5,000 unit SQ TID [facility] Last Admin: 05/18/16 06:22 Dose: 5,000 unit Aztreonam 1 gm/ Dextrose 50 mls @ 100 mls/hr IVPB BID [facility] Last Admin: 05/18/16 09:07 Dose: 100 mls/hr Mirtazapine (Remeron -) 7.5 mg PO HS [facility] Last Admin: 05/17/16 21:34 Dose: 7.5 mg Nystatin (Nystop Powder -) 1 applic TP DAILY [facility] Last Admin: 05/18/16 09:18 Dose: 1 applic Ondansetron HCl (Zofran -) 4 mg PO Q8H PRN PRN Reason: NAUSEA AND/OR VOMITING Pantoprazole Sodium (Protonix -) 40 mg PO DAILY [facility] Last Admin: 05/18/16 09:09 Dose: 40 mg Polyethylene Glycol (Miralax (For Daily Use) -) 17 gm PO DAILY [facility] Last Admin: 05/18/16 09:13 Dose: 17 gm Prasugrel (Effient -) 10 mg PO DAILY [facility] Last Admin: 05/18/16 09:15 Dose: 10 mg Prednisone (Deltasone -) 30 mg PO DAILY [facility] Last Admin: 05/18/16 09:08 Dose: 30 mg Pregabalin (Lyrica -) 25 mg PO HS [facility] Last Admin: 05/17/16 21:34 Dose: 25 mg Sodium Chloride ([place] Nasal [place] -) 2 spray NS Q12H PRN PRN Reason: NASAL CONGESTION Tamsulosin HCl (Flomax -) 0.4 mg PO DAILY@0830 [facility] Last Admin: 05/18/16 08:45 Dose: 0.4 mg Vancomycin HCl (Vancomycin (Pre-Docked)) 1,000 mg IVPB ONCE ONE Stop: 05/18/16 12:01 - Objective Vital Signs: Vital Signs Temperature 97.5 F L 05/18/16 08:00 Pulse Rate 88 05/18/16 10:31 Respiratory Rate 22 05/18/16 10:00 Blood Pressure 121/48 05/18/16 10:00 O2 Sat by Pulse Oximetry (%) 99 05/18/16 10:31 Constitutional: Yes: No Distress, Calm, Obese Eyes: Yes: WNL, Conjunctiva Clear, EOM Intact, PERRL HENT: Yes: WNL, Atraumatic, Normocephalic Neck: Yes: WNL, Supple, Trachea Midline Cardiovascular: Yes: Regular Rate and Rhythm, S1, S2. No: Bradycardia, Tachycardia, Pulse Irregular, Bruit, JVD, Gallop, Murmur, Rub, S3, S4, Varicosities Respiratory: Yes: Regular, Diminished. No: Rales, Rhonchi, Wheezes Gastrointestinal: Yes: WNL, Normal Bowel Sounds, Soft. No: Distention, Tenderness Musculoskeletal: Yes: Muscle Weakness Extremities: Yes: Deformity Edema: No Peripheral Pulses WNL: Yes Peripheral Pulses: Left Doralis Pedis: 2+, Right Dorsalis Pedis: 2+ Integumentary: Yes: Venous Stasis Changes Neurological: Yes: Alert, Oriented, Weakness Psychiatric: Yes: Alert, Oriented Labs: CBC, BMP 05/18/16 05:25 05/18/16 05:25 INR, PTT INR 1.07 (0.82-1.09) 05/14/16 09:41 - ....Imaging Chest X-ray: Report Reviewed, Image Reviewed EKG: Report Reviewed, Image Reviewed Other: Report Reviewed, Image Reviewed (tele-nsr, frequent apcs, pvcs, psvt) Assessment/Plan Acute on Chronic COPD, acute respiratory failure, PNA Acute on chronic diastolic CHF Recent Sepsis, gram + Bacteremia, infected HD catheter- removed Recent TARYN on CKD CAD h/o stents REC: SOB-acute on chronic Resp failure: again required intubation recent admission also required intubation and s/p thoracentesis for pleural effusions -volume status at baseline, euvolemic -multifactorial secondary to COPD and chronic CHF and recurrent PNA -transition to torsemide 40mg po daily -monitor strict I/Os daily weights and bun/creat electrolytes -ae copd/PNA treatment as per ICU team and ID CAD: s/p PCI with stents this past year -stable -thrombocytopenia on previous admission resolved -cont ASA 81mg daily -not on bblocker due to severe COPD -short runs PSVT and NSVT, keep K and Mg repleted. Continue telemetry
[2016-05-18] MEDS ORDERED: VANCOMYCIN 1 GRAM (PRE-DOCKED) 1,000 MG/250 ML BAG IVPB ONE (12:00)
--- NOTE | 2016-05-18 12:16 | PN ---
Teaching Attending Note Name of Resident: Melody Banks ATTENDING PHYSICIAN STATEMENT I saw and evaluated the patient. I reviewed the resident's note and discussed the case with the resident. I agree with the resident's findings and plan as documented. SUBJECTIVE: no fever or chills , no CP or SOb, feels , much better OBJECTIVE: NAD Cv: RRR Lungs: decreased breath sounds at bases, no crackles today. ext : 2 + pitting edema ,minimal erythema and thick skin with no discharge ASSESSMENT AND PLAN: 75 year-old man with a PMHx of HTN, PVD, COPD, CKD (baseline Cr 1.8), nephrolithiasis, D CHF , CAD s/p stenting in 03/23 , chronic LE lymphedema and recent hospitalizations for acute resp failure from acute CHF who presented with SOB and was found to have acute hypoxic hypercapnic resp failure . 1- Acute hypoxic hypercapnic resp failure due to acute on chronic diastolic heart failure doing well , weight decreased, now on NC , and started to develop hypernatremia. d/w Dr. Ferrer, will switch t o po demadex cont Abx fro possible PNA . will d/w ID vanco need 2- h/o COPD , not active , cont maintenance prednisone at 30 3- CKD: stable cr , cont to monitor 4- Normocytic anemia. stable at base line cont procrit 4- HTN: cont norvasc 5- CAD : Stenting 03/23 . Cont asa Transfer to tele . PT eval . anticipate dc in 2 days
[2016-05-18] MEDS: PREGABALIN 25 MG CAPSULE PO SCH ×2 (22:35→22:40)
[2016-05-18] MEDS: MIRTAZAPINE 15 MG TABLET (FP) PO SCH (22:50)
[2016-05-19] MEDS: ALBUTEROL SO4 2.5/IPRATROPIUM 0.5 INH SOL 3 ML VIAL.NEB. NEB SCH ×3 (06:04→22:52)
[2016-05-19] MEDS: HEPARIN NA (PORCINE) 5,000 UNITS/ML 1ML VIAL SQ SCH ×3 (06:40→21:24)
[2016-05-19 08:12] LABS: MCH 26.8 pg (25.7-33.7); MEAN CELL VOLUME 86.4 fl (80-96); MEAN PLT VOLUME 7.2 fl (7.5-11.1); PLATELET COUNT 201 K/MM3 (134-434); RDW 16.5 % (11.9-15.9); WHITE BLOOD COUNT 7.4 K/mm3 (4.0-10.0)
--- NOTE | 2016-05-19 08:34 | PN ---
Physical Exam: SUBJECTIVE: Patient seen and examined no complaints, feels well but does not think he can get out of bed. denied chest pain, palpitations, sob. comfortable on venti mask. OBJECTIVE: Vital Signs Period Temp Pulse Resp BP Sys/[place] Pulse Ox Last 24 Hr 97.5 F-97.8 F 84-97 20-24 115-142/48-72 99-100 GENERAL: The patient is awake, alert, and fully oriented, in no acute distress. LUNGS: quiet on left mid-lower lung, clear at apex. right lung clear without wheezing, fine basilar crackle HEART: Regular rate and rhythm, S1, S2 without murmur, rub or gallop. ABDOMEN: obese, Soft, nontender, nondistended, normoactive bowel sounds, no guarding EXTREMITIES: 2+ pulses, thickened skin on b/l lower legs, mild erythema, no skin breakdown, 1+ b/l edema, warm. 3/5 strength at right hip, knee. 3/5 on left hip and knee. 5/5 on plantar/dorsiflexion at toes. Lilly in place, clear yellow urine Laboratory Results - last 24 hr 05/18/16 05/19/16 11:31 07:45 WBC 7.4 RBC 3.02 L Hgb 8.1 L Hct 26.1 L MCV 86.4 MCHC 31.0 L RDW 16.5 H Plt Count 201 MPV 7.2 L Vancomycin Trough 9.574 D Active Medications Generic Name Dose Route Start Last Admin Trade Name Freq PRN Reason Stop Dose Admin Albuterol Sulfate 1 amp 05/17/16 18:54 Ventolin 0.083% Nebulizer Soln - NEB Q6H PRN SHORT OF BREATH/WHEEZING Albuterol/Ipratropium 1 amp 05/17/16 22:00 05/19/16 06:04 Duoneb - NEB 1 amp TIDR LESLEE Administration Amlodipine Besylate 10 mg 05/18/16 10:00 05/18/16 09:09 Norvasc - PO 10 mg DAILY LESLEE Administration Aspirin 81 mg 05/18/16 10:00 05/18/16 09:08 Ecotrin - PO 81 mg DAILY LESLEE Administration Docusate Sodium 100 mg 05/17/16 22:00 05/18/16 22:35 Colace - PO 100 mg BID LESLEE Administration Duloxetine HCl 60 mg 05/18/16 10:00 05/18/16 09:08 Cymbalta - PO 60 mg DAILY LESLEE Administration Epoetin Keith 10,000 unit 05/19/16 10:00 Procrit - SQ MOWEFR@1000 LESLEE Ferrous Sulfate 325 mg 05/17/16 22:00 05/18/16 22:35 Feosol - PO 325 mg BID LESLEE Administration Guaifenesin 600 mg 05/17/16 22:00 05/18/16 22:35 Mucinex - PO 600 mg BID LESLEE Administration Heparin Sodium (Porcine) 5,000 unit 05/17/16 22:00 05/19/16 06:40 Heparin - SQ Not Given TID LESLEE Aztreonam 1 gm/ Dextrose 50 mls @ 100 mls/hr 05/17/16 22:00 05/18/16 22:50 IVPB 100 mls/hr BID LESLEE Administration Mirtazapine 7.5 mg 05/17/16 22:00 05/18/16 22:50 Remeron - PO 7.5 mg HS LESLEE Administration Nystatin 1 applic 05/18/16 10:00 05/18/16 09:18 Nystop Powder - TP 1 applic DAILY LESLEE Administration Ondansetron HCl 4 mg 05/17/16 15:15 Zofran - PO Q8H PRN NAUSEA AND/OR VOMITING Pantoprazole Sodium 40 mg 05/18/16 10:00 05/18/16 09:09 Protonix - PO 40 mg DAILY LESLEE Administration Polyethylene Glycol 17 gm 05/18/16 10:00 05/18/16 09:13 Miralax (For Daily Use) - PO 17 gm DAILY LESLEE Administration Prasugrel 10 mg 05/18/16 10:00 05/18/16 09:15 Effient - PO 10 mg DAILY LESLEE Administration Prednisone 30 mg 05/18/16 10:00 05/18/16 09:08 Deltasone - PO 30 mg DAILY LESLEE Administration Pregabalin 25 mg 05/17/16 22:00 05/18/16 22:40 Lyrica - PO Not Given HS LESLEE Sodium Chloride 2 spray 05/17/16 15:15 [place] Nasal [place] - NS Q12H PRN NASAL CONGESTION Tamsulosin HCl 0.4 mg 05/18/16 08:30 05/18/16 08:45 Flomax - PO 0.4 mg DAILY@0830 LESLEE Administration Torsemide 40 mg 05/19/16 10:00 Demadex - PO DAILY [facility] ASSESSMENT/PLAN: 75 yr old with multiple pulmonary and cardiac co-morbidities, MRSA in sputum, recent ICU admission, BIBEMS for respiratory distress, with cardiac arrest and intubation in ED admitted to ICU for hypercapneic hypoxic respiratory failure secondary to acute CHf exacerbation. - stable for discharge, pending [facility] approval and placement. - lilly d'c/ed today #acute hypoxic hypercapneic respiratory failure likely secondary to diastolic chf - improved - s/p extubation, now on venti mask 40%, discussed with respiratory therapist to wean, will require wean to nasal cannula for rehab. - torsemide 40mg daily - duonebs #deconditioning - will require rehab placement - PT #COPD oxygen dependent likely exacerbated by HCAP, hx MRSA in sputum - abx Aztreonam 1gm BID IVPB, Vancomycin 1gm q48hr dosing -- start 05/14 - vanc trough 9 on 05/18 - solumedrol 30mg po daily - sputum cx with normal stiven #HTN - currently controlled - norvasc 10mg daily #CAD - cardiology consulted - ASA 81mg #CKD stage 3 - stable - monitor BMP #Anemia, chronic - monitor H/H, transfuse if <8.0 - s/p 1 unit of prbc's 05/14 - iron studies in 02/2016 with normal serum iron, ferritin, iron saturation, with TIBC low - procritmwf - feosol 325mg po BID #constipation - colace 100mg po bid - miralax 17gm po daily Code status: FULL CODE Diet - fat sodium controlled DVT; Heparin TId GI: protonix 40mg IVPB daily Visit type - Emergency Visit Emergency Visit: No - New Patient This patient is new to me today: No - Critical Care Critical Care patient: No - Discharge Referral Referred to [facility] No
[2016-05-19 08:36] LABS: CALCIUM 7.6 mg/dL (8.5-10.1); CREATININE 1.6 mg/dL (0.7-1.3)
--- NOTE | 2016-05-19 09:48 | PN ---
Progress Note, Physician Chief Complaint: sleeping comfortably no acute distress - Current Medication List Current Medications: Active Medications Albuterol Sulfate (Ventolin 0.083% Nebulizer Soln -) 1 amp NEB Q6H PRN PRN Reason: SHORT OF BREATH/WHEEZING Albuterol/Ipratropium (Duoneb -) 1 amp NEB TIDR [facility] Last Admin: 05/19/16 06:04 Dose: 1 amp Amlodipine Besylate (Norvasc -) 10 mg PO DAILY [facility] Last Admin: 05/18/16 09:09 Dose: 10 mg Aspirin (Ecotrin -) 81 mg PO DAILY [facility] Last Admin: 05/18/16 09:08 Dose: 81 mg Docusate Sodium (Colace -) 100 mg PO BID [facility] Last Admin: 05/18/16 22:35 Dose: 100 mg Duloxetine HCl (Cymbalta -) 60 mg PO DAILY [facility] Last Admin: 05/18/16 09:08 Dose: 60 mg Epoetin Keith (Procrit -) 10,000 unit SQ MOWEFR@1000 [facility] Ferrous Sulfate (Feosol -) 325 mg PO BID [facility] Last Admin: 05/18/16 22:35 Dose: 325 mg Guaifenesin (Mucinex -) 600 mg PO BID [facility] Last Admin: 05/18/16 22:35 Dose: 600 mg Heparin Sodium (Porcine) (Heparin -) 5,000 unit SQ TID [facility] Last Admin: 05/19/16 06:40 Dose: Not Given Aztreonam 1 gm/ Dextrose 50 mls @ 100 mls/hr IVPB BID [facility] Last Admin: 05/18/16 22:50 Dose: 100 mls/hr Mirtazapine (Remeron -) 7.5 mg PO HS [facility] Last Admin: 05/18/16 22:50 Dose: 7.5 mg Nystatin (Nystop Powder -) 1 applic TP DAILY [facility] Last Admin: 05/18/16 09:18 Dose: 1 applic Ondansetron HCl (Zofran -) 4 mg PO Q8H PRN PRN Reason: NAUSEA AND/OR VOMITING Pantoprazole Sodium (Protonix -) 40 mg PO DAILY [facility] Last Admin: 05/18/16 09:09 Dose: 40 mg Polyethylene Glycol (Miralax (For Daily Use) -) 17 gm PO DAILY [facility] Last Admin: 05/18/16 09:13 Dose: 17 gm Prasugrel (Effient -) 10 mg PO DAILY [facility] Last Admin: 05/18/16 09:15 Dose: 10 mg Prednisone (Deltasone -) 30 mg PO DAILY [facility] Last Admin: 05/18/16 09:08 Dose: 30 mg Pregabalin (Lyrica -) 25 mg PO HS [facility] Last Admin: 05/18/16 22:40 Dose: Not Given Sodium Chloride ([place] Nasal [place] -) 2 spray NS Q12H PRN PRN Reason: NASAL CONGESTION Tamsulosin HCl (Flomax -) 0.4 mg PO DAILY@0830 [facility] Last Admin: 05/18/16 08:45 Dose: 0.4 mg Torsemide (Demadex -) 40 mg PO DAILY [facility] - Objective Vital Signs: Vital Signs Temperature 97.5 F L 05/19/16 06:00 Pulse Rate 89 05/19/16 06:00 Respiratory Rate 24 05/19/16 06:00 Blood Pressure 142/72 05/19/16 06:00 O2 Sat by Pulse Oximetry (%) 99 05/18/16 21:00 Constitutional: Yes: No Distress Cardiovascular: Yes: Regular Rate and Rhythm Respiratory: Yes: Other (slight decreased breath sounds at bases) Gastrointestinal: Yes: Soft, Abdomen, Obese Edema: Yes Edema: LLE: 1+, RLE: 1+ Neurological: Yes: Alert ...Motor Strength: WNL Labs: CBC, BMP 05/19/16 07:45 05/19/16 07:45 INR, PTT INR 1.07 (0.82-1.09) 05/14/16 09:41 Assessment/Plan Assessment/Plan Acute on Chronic COPD, acute respiratory failure, PNA Acute on chronic diastolic CHF Recent Sepsis, gram + Bacteremia, infected HD catheter- removed Recent TARYN on CKD CAD h/o stents REC: SOB-acute on chronic Resp failure: again required intubation recent admission also required intubation and s/p thoracentesis for pleural effusions -volume status at baseline, euvolemic -multifactorial secondary to COPD and chronic CHF and recurrent PNA -transitioned to torsemide 40mg po daily -monitor strict I/Os daily weights and bun/creat electrolytes CAD: s/p PCI with stents > 1 year ago- d/c Effient -stable -thrombocytopenia on previous admission resolved -cont ASA 81mg daily -not on bblocker due to severe COPD -short runs PSVT and NSVT, keep K and Mg repleted. Continue telemetry
[2016-05-19] MEDS ORDERED: PT OWN MED DRAWER 7, Y5N ONE (10:38)
[2016-05-19] MEDS: DOCUSATE SODIUM 100 MG CAPSULE (FP) PO SCH ×2 (10:52→21:24)
[2016-05-19] MEDS: TAMSULOSIN HCL 0.4 MG CAP.ER.24H (FP) PO SCH (10:52)
[2016-05-19] MEDS: DULoxetine HCL 30 MG CAPSULE.DR (FP) PO SCH (10:52)
[2016-05-19] MEDS: predniSONE 10 MG TABLET (UD) PO SCH (10:52)
[2016-05-19] MEDS: POLYETHYLENE GLYCOL 3350 119 GM BTL PO SCH (10:53)
[2016-05-19] MEDS: FERROUS SO4 325 MG TABLET (FP) PO SCH ×2 (10:53→21:24)
[2016-05-19] MEDS: ASPIRIN COATED 81 MG TABLET.EC PO SCH (10:53)
[2016-05-19] MEDS: TORSEMIDE 20 MG TABLET (FP) PO SCH (10:53)
[2016-05-19] MEDS: amLODIPine BESYLATE 10 MG TABLET (FP) PO SCH (10:54)
[2016-05-19] MEDS: NYSTATIN POWDER 100,000 UNITS/GM - 15 GM TOPICAL POWDER TP SCH (10:54)
[2016-05-19] MEDS: guaiFENesin 600 MG TABLET.ER (FP) PO SCH ×2 (10:54→21:25)
[2016-05-19] MEDS: PANTOPRAZOLE 40 MG TABLET (FP) PO SCH (10:54)
[2016-05-19] MEDS: AZTREONAM 1 GM in DEXTROSE 5%-WATER - 50 ML IVPB SCH (11:02)
--- NOTE | 2016-05-19 14:13 | PN ---
Teaching Attending Note Name of Resident: Melody Banks ATTENDING PHYSICIAN STATEMENT I saw and evaluated the patient. I reviewed the resident's note and discussed the case with the resident. I agree with the resident's findings and plan as documented. SUBJECTIVE: no fever or chills , no SOB or CP . OBJECTIVE: no fever or chills , no CP or SOb, feels , much better OBJECTIVE: NAD Cv: RRR Lungs: decreased breath sounds at bases, no crackles today. ext : 1 + pitting edema ,minimal erythema and thick skin with no discharge ASSESSMENT AND PLAN: 75 year-old man with a PMHx of HTN, PVD, COPD, CKD (baseline Cr 1.8), nephrolithiasis, D CHF , CAD s/p stenting in 03/23 , chronic LE lymphedema and recent hospitalizations for acute resp failure from acute CHF who presented with SOB and was found to have acute hypoxic hypercapnic resp failure . 1- Acute hypoxic hypercapnic resp failure due to acute on chronic diastolic heart failure Cont to have neg balance on I&O. 2000 cc yesterday Cont demadex. Cont azactam, day 6 of abx , received Vanco yesterday . Will d/w Dr. Szymanski, duration of abx Remove lilly 2- h/o COPD , not active , cont maintenance prednisone at 30 3- CKD: stable cr , cont to monitor 4- Normocytic anemia. stable at base line cont procrit 4- HTN: cont norvasc 5- CAD : Stenting 03/23 . Cont asa Anticipate dc tomorrow.
[2016-05-19] MEDS: EPOETIN ALFA 10,000 UNIT/1 ML VIAL SQ SCH (14:19)
--- NOTE | 2016-05-19 15:41 | PN ---
Progress Note, Physician History of Present Illness: NAD. Comfortable lying flat - Current Medication List Current Medications: Active Medications Albuterol Sulfate (Ventolin 0.083% Nebulizer Soln -) 1 amp NEB Q6H PRN PRN Reason: SHORT OF BREATH/WHEEZING Albuterol/Ipratropium (Duoneb -) 1 amp NEB TIDR [facility] Last Admin: 05/19/16 13:40 Dose: 1 amp Amlodipine Besylate (Norvasc -) 10 mg PO DAILY [facility] Last Admin: 05/19/16 10:54 Dose: 10 mg Aspirin (Ecotrin -) 81 mg PO DAILY [facility] Last Admin: 05/19/16 10:53 Dose: 81 mg Docusate Sodium (Colace -) 100 mg PO BID [facility] Last Admin: 05/19/16 10:52 Dose: 100 mg Duloxetine HCl (Cymbalta -) 60 mg PO DAILY [facility] Last Admin: 05/19/16 10:52 Dose: 60 mg Epoetin Keith (Procrit -) 10,000 unit SQ MOWEFR@1000 [facility] Last Admin: 05/19/16 14:19 Dose: 10,000 unit Ferrous Sulfate (Feosol -) 325 mg PO BID [facility] Last Admin: 05/19/16 10:53 Dose: 325 mg Guaifenesin (Mucinex -) 600 mg PO BID [facility] Last Admin: 05/19/16 10:54 Dose: 600 mg Heparin Sodium (Porcine) (Heparin -) 5,000 unit SQ TID [facility] Last Admin: 05/19/16 14:23 Dose: 5,000 unit Aztreonam 1 gm/ Dextrose 50 mls @ 100 mls/hr IVPB BID [facility] Last Admin: 05/19/16 11:02 Dose: 100 mls/hr Mirtazapine (Remeron -) 7.5 mg PO HS [facility] Last Admin: 05/18/16 22:50 Dose: 7.5 mg Nystatin (Nystop Powder -) 1 applic TP DAILY [facility] Last Admin: 05/19/16 10:54 Dose: 1 applic Ondansetron HCl (Zofran -) 4 mg PO Q8H PRN PRN Reason: NAUSEA AND/OR VOMITING Pantoprazole Sodium (Protonix -) 40 mg PO DAILY [facility] Last Admin: 05/19/16 10:54 Dose: 40 mg Polyethylene Glycol (Miralax (For Daily Use) -) 17 gm PO DAILY [facility] Last Admin: 05/19/16 10:53 Dose: 17 gm Prednisone (Deltasone -) 30 mg PO DAILY [facility] Last Admin: 05/19/16 10:52 Dose: 30 mg Pregabalin (Lyrica -) 25 mg PO HS [facility] Last Admin: 05/18/16 22:40 Dose: Not Given Sodium Chloride ([place] Nasal [place] -) 2 spray NS Q12H PRN PRN Reason: NASAL CONGESTION Tamsulosin HCl (Flomax -) 0.4 mg PO DAILY@0830 [facility] Last Admin: 05/19/16 10:52 Dose: 0.4 mg Torsemide (Demadex -) 40 mg PO DAILY [facility] Last Admin: 05/19/16 10:53 Dose: 40 mg - Objective Vital Signs: Vital Signs Temperature 97.4 F L 05/19/16 14:57 Pulse Rate 91 H 05/19/16 14:57 Respiratory Rate 20 05/19/16 14:57 Blood Pressure 118/57 05/19/16 14:57 O2 Sat by Pulse Oximetry (%) 99 05/18/16 21:00 Constitutional: Yes: No Distress Eyes: No: Sclera Icterus HENT: Yes: Atraumatic, Normocephalic Neck: Yes: Supple, Trachea Midline Respiratory: Yes: CTA Bilaterally Gastrointestinal: Yes: Soft. No: Tenderness Edema: No Neurological: Yes: WNL Labs: CBC, BMP 05/19/16 07:45 05/19/16 07:45 INR, PTT INR 1.07 (0.82-1.09) 05/14/16 09:41 Problem List - Problems (1) Acute and chronic respiratory failure ([id number]) Code(s): J96.20 - ACUTE AND CHR RESP FAILURE, UNSP W HYPOXIA OR HYPERCAPNIA Qualifiers: Respiratory failure complication: hypoxia and hypercapnia Qualified Code(s): J96.21 - Acute and chronic respiratory failure with hypoxia (2) Congestive heart failure Code(s): I50.9 - HEART FAILURE, UNSPECIFIED (3) Renal insufficiency Code(s): N28.9 - DISORDER OF KIDNEY AND URETER, UNSPECIFIED (4) Acute exacerbation of chronic obstructive pulmonary disease (COPD) Code(s): J44.1 - CHRONIC OBSTRUCTIVE PULMONARY DISEASE W (ACUTE) EXACERBATION Assessment/Plan Respiratory failure secondary to a combination of AECOPD and CHF. R/O pneumonia. Renal Insufficiency. Pt extubated. Respiratory status hasimproved. Plan: Inhaled bronchodilators Steroid taper O2 to maintain SaO2>90 Cardiac evaluation Monitor renal function
--- NOTE | 2016-05-19 17:28 | PN ---
Progress Note, Physician History of Present Illness: says he feels much better today he sat by the side of the bed diet improving - Current Medication List Current Medications: Active Medications Albuterol Sulfate (Ventolin 0.083% Nebulizer Soln -) 1 amp NEB Q6H PRN PRN Reason: SHORT OF BREATH/WHEEZING Albuterol/Ipratropium (Duoneb -) 1 amp NEB TIDR [facility] Last Admin: 05/19/16 13:40 Dose: 1 amp Amlodipine Besylate (Norvasc -) 10 mg PO DAILY [facility] Last Admin: 05/19/16 10:54 Dose: 10 mg Aspirin (Ecotrin -) 81 mg PO DAILY [facility] Last Admin: 05/19/16 10:53 Dose: 81 mg Docusate Sodium (Colace -) 100 mg PO BID [facility] Last Admin: 05/19/16 10:52 Dose: 100 mg Duloxetine HCl (Cymbalta -) 60 mg PO DAILY [facility] Last Admin: 05/19/16 10:52 Dose: 60 mg Epoetin Keith (Procrit -) 10,000 unit SQ MOWEFR@1000 [facility] Last Admin: 05/19/16 14:19 Dose: 10,000 unit Ferrous Sulfate (Feosol -) 325 mg PO BID [facility] Last Admin: 05/19/16 10:53 Dose: 325 mg Guaifenesin (Mucinex -) 600 mg PO BID [facility] Last Admin: 05/19/16 10:54 Dose: 600 mg Heparin Sodium (Porcine) (Heparin -) 5,000 unit SQ TID [facility] Last Admin: 05/19/16 14:23 Dose: 5,000 unit Mirtazapine (Remeron -) 7.5 mg PO HS [facility] Last Admin: 05/18/16 22:50 Dose: 7.5 mg Nystatin (Nystop Powder -) 1 applic TP DAILY [facility] Last Admin: 05/19/16 10:54 Dose: 1 applic Ondansetron HCl (Zofran -) 4 mg PO Q8H PRN PRN Reason: NAUSEA AND/OR VOMITING Pantoprazole Sodium (Protonix -) 40 mg PO DAILY [facility] Last Admin: 05/19/16 10:54 Dose: 40 mg Polyethylene Glycol (Miralax (For Daily Use) -) 17 gm PO DAILY [facility] Last Admin: 05/19/16 10:53 Dose: 17 gm Prednisone (Deltasone -) 30 mg PO DAILY [facility] Last Admin: 05/19/16 10:52 Dose: 30 mg Pregabalin (Lyrica -) 25 mg PO HS [facility] Last Admin: 05/18/16 22:40 Dose: Not Given Sodium Chloride ([place] Nasal [place] -) 2 spray NS Q12H PRN PRN Reason: NASAL CONGESTION Tamsulosin HCl (Flomax -) 0.4 mg PO DAILY@0830 [facility] Last Admin: 05/19/16 10:52 Dose: 0.4 mg Torsemide (Demadex -) 40 mg PO DAILY [facility] Last Admin: 05/19/16 10:53 Dose: 40 mg - Objective Vital Signs: Vital Signs Temperature 97.4 F L 05/19/16 14:57 Pulse Rate 91 H 05/19/16 14:57 Respiratory Rate 20 05/19/16 14:57 Blood Pressure 118/57 05/19/16 14:57 O2 Sat by Pulse Oximetry (%) 99 05/18/16 21:00 Constitutional: Yes: No Distress, Calm Cardiovascular: Yes: Regular Rate and Rhythm Respiratory: Yes: Regular, CTA Bilaterally Gastrointestinal: Yes: Normal Bowel Sounds Musculoskeletal: Yes: Other Extremities: Yes: Other Integumentary: Yes: Venous Stasis Changes, Other Neurological: Yes: Alert, Oriented Psychiatric: Yes: Alert Labs: CBC, BMP 05/19/16 07:45 05/19/16 07:45 INR, PTT INR 1.07 (0.82-1.09) 05/14/16 09:41 Assessment/Plan Problem List - Problems (1) Acute and chronic respiratory failure ([id number]) Code(s): J96.20 - ACUTE AND CHR RESP FAILURE, UNSP W HYPOXIA OR HYPERCAPNIA Qualifiers: Respiratory failure complication: hypoxia and hypercapnia Qualified Code(s): J96.21 - Acute and chronic respiratory failure with hypoxia (2) Congestive heart failure Code(s): I50.9 - HEART FAILURE, UNSPECIFIED (3) Renal insufficiency Code(s): N28.9 - DISORDER OF KIDNEY AND URETER, UNSPECIFIED (4) Acute exacerbation of chronic obstructive pulmonary disease (COPD) Code(s): J44.1 - CHRONIC OBSTRUCTIVE PULMONARY DISEASE W (ACUTE) EXACERBATION sepsis pneumonia plan will stop abx cx results noted continue resp support incentive igor patient worried about his left leg movement wants to know what is the plan
[2016-05-19] MEDS: PREGABALIN 25 MG CAPSULE PO SCH (21:24)
[2016-05-19] MEDS: MIRTAZAPINE 15 MG TABLET (FP) PO SCH (22:15)
[2016-05-20] MEDS: HEPARIN NA (PORCINE) 5,000 UNITS/ML 1ML VIAL SQ SCH ×3 (06:12→21:52)
[2016-05-20] MEDS: ALBUTEROL SO4 2.5/IPRATROPIUM 0.5 INH SOL 3 ML VIAL.NEB. NEB SCH ×3 (07:08→21:46)
[2016-05-20] MEDS ORDERED: PT OWN MED DRAWER 7, Y5N ONE (08:23)
[2016-05-20] MEDS: TAMSULOSIN HCL 0.4 MG CAP.ER.24H (FP) PO SCH (09:14)
[2016-05-20] MEDS: DOCUSATE SODIUM 100 MG CAPSULE (FP) PO SCH ×2 (09:14→21:53)
[2016-05-20] MEDS: DULoxetine HCL 30 MG CAPSULE.DR (FP) PO SCH (09:14)
[2016-05-20] MEDS: FERROUS SO4 325 MG TABLET (FP) PO SCH ×2 (09:15→21:51)
[2016-05-20] MEDS: predniSONE 10 MG TABLET (UD) PO SCH (09:15)
[2016-05-20] MEDS: ASPIRIN COATED 81 MG TABLET.EC PO SCH (09:15)
[2016-05-20] MEDS: TORSEMIDE 20 MG TABLET (FP) PO SCH (09:15)
[2016-05-20] MEDS: NYSTATIN POWDER 100,000 UNITS/GM - 15 GM TOPICAL POWDER TP SCH (09:16)
[2016-05-20] MEDS: POLYETHYLENE GLYCOL 3350 119 GM BTL PO SCH (09:16)
[2016-05-20] MEDS: PANTOPRAZOLE 40 MG TABLET (FP) PO SCH (09:16)
[2016-05-20] MEDS: guaiFENesin 600 MG TABLET.ER (FP) PO SCH ×2 (09:16→21:52)
[2016-05-20] MEDS: amLODIPine BESYLATE 10 MG TABLET (FP) PO SCH (09:16)
[2016-05-20 09:28] LABS: CREATININE 1.3 mg/dL (0.7-1.3)
--- NOTE | 2016-05-20 14:42 | PN ---
Progress Note (short form) - Note Progress Note: Subjective: no pain, SOB , fever or chills . Objective: Vital Signs: Last Vital Signs Temp Pulse Resp BP Pulse Ox 97.9 F 55 L 22 134/59 94 L 05/20/16 09:26 05/20/16 11:30 05/20/16 09:26 05/20/16 09:26 05/20/16 11:30 I&O: Intake & Output 05/17/16 05/18/16 05/19/16 05/20/16 23:59 23:59 23:59 23:59 Intake Total 512 407 1355 1100 Output Total 2250 2300 1400 600 Balance -1300 -2000 -300 500 Weight 200 lb 9.93 oz 200 lb 3.2 oz Current Medications Generic Name Dose Route Start Last Admin Trade Name Freq PRN Reason Stop Dose Admin Albuterol Sulfate 1 amp 05/17/16 18:54 Ventolin 0.083% Nebulizer Soln - NEB Q6H PRN SHORT OF BREATH/WHEEZING Albuterol/Ipratropium 1 amp 05/17/16 22:00 05/20/16 14:08 Duoneb - NEB 1 amp TIDR LESLEE Administration Amlodipine Besylate 10 mg 05/18/16 10:00 05/20/16 09:16 Norvasc - PO 10 mg DAILY LESLEE Administration Aspirin 81 mg 05/18/16 10:00 05/20/16 09:15 Ecotrin - PO 81 mg DAILY LESLEE Administration Docusate Sodium 100 mg 05/17/16 22:00 05/20/16 09:14 Colace - PO 100 mg BID LESLEE Administration Duloxetine HCl 60 mg 05/18/16 10:00 05/20/16 09:14 Cymbalta - PO 60 mg DAILY LESLEE Administration Epoetin Keith 10,000 unit 05/19/16 10:00 05/19/16 14:19 Procrit - SQ 10,000 unit MOWEFR@1000 LESLEE Administration Ferrous Sulfate 325 mg 05/17/16 22:00 05/20/16 09:15 Feosol - PO 325 mg BID LESLEE Administration Guaifenesin 600 mg 05/17/16 22:00 05/20/16 09:16 Mucinex - PO 600 mg BID LESLEE Administration Heparin Sodium (Porcine) 5,000 unit 05/17/16 22:00 05/20/16 06:12 Heparin - SQ Not Given TID LESLEE Mirtazapine 7.5 mg 05/17/16 22:00 05/19/16 22:15 Remeron - PO 7.5 mg HS LESLEE Administration Nystatin 1 applic 05/18/16 10:00 05/20/16 09:16 Nystop Powder - TP 1 applic DAILY LESLEE Administration Ondansetron HCl 4 mg 05/17/16 15:15 Zofran - PO Q8H PRN NAUSEA AND/OR VOMITING Pantoprazole Sodium 40 mg 05/18/16 10:00 05/20/16 09:16 Protonix - PO 40 mg DAILY LESLEE Administration Polyethylene Glycol 17 gm 05/18/16 10:00 05/20/16 09:16 Miralax (For Daily Use) - PO 17 gm DAILY [facility]ES[facility]E Administration Prednisone 30 mg 05/18/16 10:00 05/20/16 09:15 Deltasone - PO 30 mg DAILY LESLEE Administration Pregabalin 25 mg 05/17/16 22:00 05/19/16 21:24 Lyrica - PO Not Given HS LESLEE Sodium Chloride 2 spray 05/17/16 15:15 [place] Nasal [place] - NS Q12H PRN NASAL CONGESTION Tamsulosin HCl 0.4 mg 05/18/16 08:30 05/20/16 09:14 Flomax - PO 0.4 mg DAILY@0830 LESLEE Administration Torsemide 40 mg 05/19/16 10:00 05/20/16 09:15 Demadex - PO 40 mg DAILY LESLEE Administration Physical Exam: NAD Cv: RRR Lungs: decreased breath sounds at bases, minimal crackles heard today ext : 1 + pitting edema ,minimal erythema and thick skin with no discharge ASSESSMENT AND PLAN: 75 year-old man with a PMHx of HTN, PVD, COPD, CKD (baseline Cr 1.8), nephrolithiasis, D CHF , CAD s/p stenting in 03/23 , chronic LE lymphedema and recent hospitalizations for acute resp failure from acute CHF who presented with SOB and was found to have acute hypoxic hypercapnic resp failure . 1- Acute hypoxic hypercapnic resp failure due to acute on chronic diastolic heart failure Cont to improve Cont demadex. received 6 days of Abx . finished yesterday 2- H/o COPD , not active , cont maintenance prednisone at 30 3- CKD: stable cr , cont to monitor 4- Normocytic anemia. stable at base line cont procrit 4- HTN: cont norvasc 5- CAD : Stenting 03/23 . Cont asa Dipso : Auth for placement is pending . Not safe for home dc , needs rehab Visit type - Emergency Visit Emergency Visit: Yes ED Registration Date: 05/14/16 Care time: The patient presented to the Emergency Department on the above date and was hospitalized for further evaluation of their emergent condition. - New Patient This patient is new to me today: No - Critical Care Critical Care patient: No
--- NOTE | 2016-05-20 14:53 | PN ---
Progress Note, Physician History of Present Illness: patient doing well legs feel better foleys removed passed urine - Current Medication List Current Medications: Active Medications Albuterol Sulfate (Ventolin 0.083% Nebulizer Soln -) 1 amp NEB Q6H PRN PRN Reason: SHORT OF BREATH/WHEEZING Albuterol/Ipratropium (Duoneb -) 1 amp NEB TIDR [facility] Last Admin: 05/20/16 14:08 Dose: 1 amp Amlodipine Besylate (Norvasc -) 10 mg PO DAILY [facility] Last Admin: 05/20/16 09:16 Dose: 10 mg Aspirin (Ecotrin -) 81 mg PO DAILY [facility] Last Admin: 05/20/16 09:15 Dose: 81 mg Docusate Sodium (Colace -) 100 mg PO BID [facility] Last Admin: 05/20/16 09:14 Dose: 100 mg Duloxetine HCl (Cymbalta -) 60 mg PO DAILY [facility] Last Admin: 05/20/16 09:14 Dose: 60 mg Epoetin Keith (Procrit -) 10,000 unit SQ MOWEFR@1000 [facility] Last Admin: 05/19/16 14:19 Dose: 10,000 unit Ferrous Sulfate (Feosol -) 325 mg PO BID [facility] Last Admin: 05/20/16 09:15 Dose: 325 mg Guaifenesin (Mucinex -) 600 mg PO BID [facility] Last Admin: 05/20/16 09:16 Dose: 600 mg Heparin Sodium (Porcine) (Heparin -) 5,000 unit SQ TID [facility] Last Admin: 05/20/16 06:12 Dose: Not Given Mirtazapine (Remeron -) 7.5 mg PO HS [facility] Last Admin: 05/19/16 22:15 Dose: 7.5 mg Nystatin (Nystop Powder -) 1 applic TP DAILY [facility] Last Admin: 05/20/16 09:16 Dose: 1 applic Ondansetron HCl (Zofran -) 4 mg PO Q8H PRN PRN Reason: NAUSEA AND/OR VOMITING Pantoprazole Sodium (Protonix -) 40 mg PO DAILY [facility] Last Admin: 05/20/16 09:16 Dose: 40 mg Polyethylene Glycol (Miralax (For Daily Use) -) 17 gm PO DAILY [facility] Last Admin: 05/20/16 09:16 Dose: 17 gm Prednisone (Deltasone -) 30 mg PO DAILY [facility] Last Admin: 02/11/17 09:15 Dose: 30 mg Pregabalin (Lyrica -) 25 mg PO HS [facility] Last Admin: 05/19/16 21:24 Dose: Not Given Sodium Chloride ([place] Nasal [place] -) 2 spray NS Q12H PRN PRN Reason: NASAL CONGESTION Tamsulosin HCl (Flomax -) 0.4 mg PO DAILY@0830 [facility] Last Admin: 05/20/16 09:14 Dose: 0.4 mg Torsemide (Demadex -) 40 mg PO DAILY [facility] Last Admin: 05/20/16 09:15 Dose: 40 mg - Objective Vital Signs: Vital Signs Temperature 97.9 F 05/20/16 09:26 Pulse Rate 55 L 05/20/16 11:30 Respiratory Rate 22 05/20/16 09:26 Blood Pressure 134/59 05/20/16 09:26 O2 Sat by Pulse Oximetry (%) 94 L 05/20/16 11:30 Constitutional: Yes: No Distress, Calm Cardiovascular: Yes: Regular Rate and Rhythm Respiratory: Yes: Regular, Poor Air Entry (bases) Gastrointestinal: Yes: Normal Bowel Sounds, Soft Musculoskeletal: Yes: Other Extremities: Yes: Other Edema: LLE: 1+, RLE: 1+ Integumentary: Yes: Venous Stasis Changes Neurological: Yes: Alert, Oriented Psychiatric: Yes: Alert Labs: CBC, BMP 05/19/16 07:45 05/20/16 08:15 INR, PTT INR 1.07 (0.82-1.09) 05/14/16 09:41 Assessment/Plan Problem List - Problems (1) Acute and chronic respiratory failure ([id number]) Code(s): J96.20 - ACUTE AND CHR RESP FAILURE, UNSP W HYPOXIA OR HYPERCAPNIA Qualifiers: Respiratory failure complication: hypoxia and hypercapnia Qualified Code(s): J96.21 - Acute and chronic respiratory failure with hypoxia (2) Congestive heart failure Code(s): I50.9 - HEART FAILURE, UNSPECIFIED (3) Renal insufficiency Code(s): N28.9 - DISORDER OF KIDNEY AND URETER, UNSPECIFIED (4) Acute exacerbation of chronic obstructive pulmonary disease (COPD) Code(s): J44.1 - CHRONIC OBSTRUCTIVE PULMONARY DISEASE W (ACUTE) EXACERBATION sepsis pneumonia plan contiue current mgmt incentive igor out of bed physio to make him walk
[2016-05-20] MEDS: MIRTAZAPINE 15 MG TABLET (FP) PO SCH (21:52)
[2016-05-20] MEDS: PREGABALIN 25 MG CAPSULE PO SCH (21:52)
[2016-05-21] MEDS: HEPARIN NA (PORCINE) 5,000 UNITS/ML 1ML VIAL SQ SCH ×3 (06:06→21:08)
[2016-05-21] MEDS: ALBUTEROL SO4 2.5/IPRATROPIUM 0.5 INH SOL 3 ML VIAL.NEB. NEB SCH ×3 (06:56→21:56)
[2016-05-21] MEDS: TAMSULOSIN HCL 0.4 MG CAP.ER.24H (FP) PO SCH (08:46)
[2016-05-21] MEDS ORDERED: PT OWN MED DRAWER 7, Y5N ONE ×2 (09:32→19:49)
[2016-05-21] MEDS: FERROUS SO4 325 MG TABLET (FP) PO SCH ×2 (09:36→21:09)
[2016-05-21] MEDS: DOCUSATE SODIUM 100 MG CAPSULE (FP) PO SCH ×2 (09:36→21:09)
[2016-05-21] MEDS: DULoxetine HCL 30 MG CAPSULE.DR (FP) PO SCH (09:36)
[2016-05-21] MEDS: POLYETHYLENE GLYCOL 3350 119 GM BTL PO SCH (09:37)
[2016-05-21] MEDS: predniSONE 10 MG TABLET (UD) PO SCH (09:37)
[2016-05-21] MEDS: TORSEMIDE 20 MG TABLET (FP) PO SCH (09:37)
[2016-05-21] MEDS: amLODIPine BESYLATE 10 MG TABLET (FP) PO SCH (09:37)
[2016-05-21] MEDS: guaiFENesin 600 MG TABLET.ER (FP) PO SCH ×2 (09:37→21:07)
[2016-05-21] MEDS: ASPIRIN COATED 81 MG TABLET.EC PO SCH (09:37)
[2016-05-21] MEDS: PANTOPRAZOLE 40 MG TABLET (FP) PO SCH (09:37)
[2016-05-21] MEDS: NYSTATIN POWDER 100,000 UNITS/GM - 15 GM TOPICAL POWDER TP SCH (09:37)
--- NOTE | 2016-05-21 10:13 | PN ---
Progress Note, Physician Chief Complaint: comfortable eating breakfast, no distress - Current Medication List Current Medications: Active Medications Albuterol Sulfate (Ventolin 0.083% Nebulizer Soln -) 1 amp NEB Q6H PRN PRN Reason: SHORT OF BREATH/WHEEZING Albuterol/Ipratropium (Duoneb -) 1 amp NEB TIDR [facility] Last Admin: 05/21/16 06:56 Dose: 1 amp Amlodipine Besylate (Norvasc -) 10 mg PO DAILY [facility] Last Admin: 05/21/16 09:37 Dose: 10 mg Aspirin (Ecotrin -) 81 mg PO DAILY [facility] Last Admin: 05/21/16 09:37 Dose: 81 mg Docusate Sodium (Colace -) 100 mg PO BID [facility] Last Admin: 05/21/16 09:36 Dose: Not Given Duloxetine HCl (Cymbalta -) 60 mg PO DAILY [facility] Last Admin: 05/21/16 09:36 Dose: 60 mg Epoetin Keith (Procrit -) 10,000 unit SQ MOWEFR@1000 [facility] Last Admin: 05/19/16 14:19 Dose: 10,000 unit Ferrous Sulfate (Feosol -) 325 mg PO BID [facility] Last Admin: 05/21/16 09:36 Dose: 325 mg Guaifenesin (Mucinex -) 600 mg PO BID [facility] Last Admin: 05/21/16 09:37 Dose: Not Given Heparin Sodium (Porcine) (Heparin -) 5,000 unit SQ TID [facility] Last Admin: 05/21/16 06:06 Dose: 5,000 unit Mirtazapine (Remeron -) 7.5 mg PO HS [facility] Last Admin: 05/20/16 21:52 Dose: 7.5 mg Nystatin (Nystop Powder -) 1 applic TP DAILY [facility] Last Admin: 05/21/16 09:37 Dose: 1 applic Ondansetron HCl (Zofran -) 4 mg PO Q8H PRN PRN Reason: NAUSEA AND/OR VOMITING Pantoprazole Sodium (Protonix -) 40 mg PO DAILY [facility] Last Admin: 05/21/16 09:37 Dose: 40 mg Polyethylene Glycol (Miralax (For Daily Use) -) 17 gm PO DAILY [facility] Last Admin: 05/21/16 09:37 Dose: Not Given Prednisone (Deltasone -) 30 mg PO DAILY [facility] Last Admin: 05/21/16 09:37 Dose: 30 mg Pregabalin (Lyrica -) 25 mg PO HS [facility] Last Admin: 05/20/16 21:52 Dose: Not Given Sodium Chloride ([place] Nasal [place] -) 2 spray NS Q12H PRN PRN Reason: NASAL CONGESTION Tamsulosin HCl (Flomax -) 0.4 mg PO DAILY@0830 [facility] Last Admin: 05/21/16 08:46 Dose: 0.4 mg Torsemide (Demadex -) 40 mg PO DAILY [facility] Last Admin: 05/21/16 09:37 Dose: 40 mg - Objective Vital Signs: Vital Signs Temperature 98.5 F 05/21/16 09:00 Pulse Rate 91 H 05/21/16 09:00 Respiratory Rate 20 05/21/16 09:00 Blood Pressure 138/66 05/21/16 09:00 O2 Sat by Pulse Oximetry (%) 95 05/20/16 21:00 Constitutional: Yes: No Distress, Calm Cardiovascular: Yes: Regular Rate and Rhythm Respiratory: Yes: Other (decreased breath sounds b/l o/w clear) Gastrointestinal: Yes: Soft, Abdomen, Obese Edema: Yes Edema: LLE: 1+, RLE: 1+ Neurological: Yes: Alert, Oriented ...Motor Strength: WNL Labs: CBC, BMP 05/19/16 07:45 05/20/16 08:15 INR, PTT INR 1.07 (0.82-1.09) 05/14/16 09:41 Laboratory Tests 05/19/16 05/19/16 05/20/16 07:45 07:45 08:15 WBC 7.4 Hgb 8.1 L Plt Count 201 Sodium 143 142 Potassium 3.8 3.7 BUN 41 H 39 H Creatinine 1.6 H D 1.3 Assessment/Plan Assessment/Plan Acute on Chronic COPD, acute respiratory failure, PNA Acute on chronic diastolic CHF Recent Sepsis, gram + Bacteremia, infected HD catheter- removed Recent TARYN on CKD CAD h/o PCI REC: SOB-acute on chronic Resp failure: again required intubation recent admission also required intubation and s/p thoracentesis for pleural effusions -volume status at baseline, euvolemic -multifactorial secondary to COPD and chronic CHF and recurrent PNA -transitioned to torsemide 40mg po daily -monitor strict I/Os daily weights and bun/creat electrolytes CAD: s/p PCI with stents > 1 year ago- d/c Effient -stable -thrombocytopenia on previous admission resolved -cont ASA 81mg daily -not on bblocker due to severe COPD
[2016-05-21] MEDS: ALBUTEROL SO4 0.083% IH SOL 2.5 MG/3 ML VIAL.NEB. NEB PRN (10:17)
--- NOTE | 2016-05-21 14:28 | PN ---
Progress Note, Physician History of Present Illness: stable doing well good urine output on nasal cannula now - Current Medication List Current Medications: Active Medications Albuterol Sulfate (Ventolin 0.083% Nebulizer Soln -) 1 amp NEB Q6H PRN PRN Reason: SHORT OF BREATH/WHEEZING Last Admin: 05/21/16 10:17 Dose: 1 amp Albuterol/Ipratropium (Duoneb -) 1 amp NEB TIDR [facility] Last Admin: 05/21/16 14:23 Dose: 1 amp Amlodipine Besylate (Norvasc -) 10 mg PO DAILY [facility] Last Admin: 05/21/16 09:37 Dose: 10 mg Aspirin (Ecotrin -) 81 mg PO DAILY [facility] Last Admin: 05/21/16 09:37 Dose: 81 mg Docusate Sodium (Colace -) 100 mg PO BID [facility] Last Admin: 05/21/16 09:36 Dose: Not Given Duloxetine HCl (Cymbalta -) 60 mg PO DAILY [facility] Last Admin: 05/21/16 09:36 Dose: 60 mg Epoetin Keith (Procrit -) 10,000 unit SQ MOWEFR@1000 [facility] Last Admin: 05/19/16 14:19 Dose: 10,000 unit Ferrous Sulfate (Feosol -) 325 mg PO BID [facility] Last Admin: 05/21/16 09:36 Dose: 325 mg Guaifenesin (Mucinex -) 600 mg PO BID [facility] Last Admin: 05/21/16 09:37 Dose: Not Given Heparin Sodium (Porcine) (Heparin -) 5,000 unit SQ TID [facility] Last Admin: 05/21/16 06:06 Dose: 5,000 unit Mirtazapine (Remeron -) 7.5 mg PO HS [facility] Last Admin: 05/20/16 21:52 Dose: 7.5 mg Nystatin (Nystop Powder -) 1 applic TP DAILY [facility] Last Admin: 05/21/16 09:37 Dose: 1 applic Ondansetron HCl (Zofran -) 4 mg PO Q8H PRN PRN Reason: NAUSEA AND/OR VOMITING Pantoprazole Sodium (Protonix -) 40 mg PO DAILY [facility] Last Admin: 05/21/16 09:37 Dose: 40 mg Polyethylene Glycol (Miralax (For Daily Use) -) 17 gm PO DAILY [facility] Last Admin: 05/21/16 09:37 Dose: Not Given Prednisone (Deltasone -) 30 mg PO DAILY [facility] Last Admin: 05/21/16 09:37 Dose: 30 mg Pregabalin (Lyrica -) 25 mg PO HS [facility] Last Admin: 05/20/16 21:52 Dose: Not Given Sodium Chloride ([place] Nasal [place] -) 2 spray NS Q12H PRN PRN Reason: NASAL CONGESTION Tamsulosin HCl (Flomax -) 0.4 mg PO DAILY@0830 [facility] Last Admin: 05/21/16 08:46 Dose: 0.4 mg Torsemide (Demadex -) 40 mg PO DAILY [facility] Last Admin: 05/21/16 09:37 Dose: 40 mg - Objective Vital Signs: Vital Signs Temperature 98.5 F 05/21/16 09:00 Pulse Rate 90 05/21/16 10:26 Respiratory Rate 20 05/21/16 09:00 Blood Pressure 138/66 05/21/16 09:00 O2 Sat by Pulse Oximetry (%) 98 05/21/16 10:26 Constitutional: Yes: No Distress, Calm Cardiovascular: Yes: Regular Rate and Rhythm Respiratory: Yes: Regular, Poor Air Entry Gastrointestinal: Yes: Normal Bowel Sounds, Soft Musculoskeletal: Yes: Other Extremities: Yes: Other Neurological: Yes: Alert, Oriented Psychiatric: Yes: Alert Labs: CBC, BMP 05/19/16 07:45 05/20/16 08:15 INR, PTT INR 1.07 (0.82-1.09) 05/14/16 09:41 Assessment/Plan Problem List - Problems (1) Acute and chronic respiratory failure ([id number]) Code(s): J96.20 - ACUTE AND CHR RESP FAILURE, UNSP W HYPOXIA OR HYPERCAPNIA Qualifiers: Respiratory failure complication: hypoxia and hypercapnia Qualified Code(s): J96.21 - Acute and chronic respiratory failure with hypoxia (2) Congestive heart failure Code(s): I50.9 - HEART FAILURE, UNSPECIFIED (3) Renal insufficiency Code(s): N28.9 - DISORDER OF KIDNEY AND URETER, UNSPECIFIED (4) Acute exacerbation of chronic obstructive pulmonary disease (COPD) Code(s): J44.1 - CHRONIC OBSTRUCTIVE PULMONARY DISEASE W (ACUTE) EXACERBATION sepsis pneumonia plan contiue current mgmt incentive igor out of bed physio to make him walk
--- NOTE | 2016-05-21 14:58 | PN ---
Progress Note (short form) - Note Progress Note: Subjective: no pain, SOB , fever or chills . had disrhea 5 times yesterday, and x2 today ( loose stool ) Objective: Vital Signs: Last Vital Signs Temp Pulse Resp BP Pulse Ox 98.5 F 90 20 138/66 98 05/21/16 09:00 05/21/16 10:26 05/21/16 09:00 05/21/16 09:00 05/21/16 10:26 Intake & Output 05/18/16 05/19/16 05/20/16 05/21/16 23:59 23:59 23:59 23:59 Intake Total 300 1100 1900 350 Output Total 2300 1400 1350 Balance -2000 -300 550 350 Weight 200 lb 3.2 oz Physical Exam: NAD Cv: RRR Lungs: decreased breath sounds at bases ext : 1 + pitting edema ,minimal erythema and thick skin with no discharge ASSESSMENT AND PLAN: 75 year-old man with a PMHx of HTN, PVD, COPD, CKD (baseline Cr 1.8), nephrolithiasis, D CHF , CAD s/p stenting in 03/23 , chronic LE lymphedema and recent hospitalizations for acute resp failure from acute CHF who presented with SOB and was found to have acute hypoxic hypercapnic resp failure . 1- Acute hypoxic hypercapnic resp failure due to acute on chronic diastolic heart failure Cont to improve. I&O + 500 cc , I wonder if the measurements are correct with no lilly Cont demadex. Received 6 days of Abx . 2- H/o COPD , not active , cont maintenance prednisone at 30 3- Diarrhea : hold laxatives and monitor . Improved 4-CKD: stable cr , cont to monitor 5- Normocytic anemia. stable at base line cont procrit 6- HTN: cont norvasc 7- CAD : Stenting 03/23 . Cont asa Dipso : Auth for placement is pending . Not safe for home dc , needs rehab Visit type - Emergency Visit Emergency Visit: Yes ED Registration Date: 05/14/16 Care time: The patient presented to the Emergency Department on the above date and was hospitalized for further evaluation of their emergent condition. - New Patient This patient is new to me today: No - Critical Care Critical Care patient: No
[2016-05-21] MEDS: MIRTAZAPINE 15 MG TABLET (FP) PO SCH (21:07)
[2016-05-21] MEDS: PREGABALIN 25 MG CAPSULE PO SCH (21:08)
[2016-05-22] MEDS: ALBUTEROL SO4 2.5/IPRATROPIUM 0.5 INH SOL 3 ML VIAL.NEB. NEB SCH ×2 (06:29→14:35)
[2016-05-22] MEDS: HEPARIN NA (PORCINE) 5,000 UNITS/ML 1ML VIAL SQ SCH ×2 (06:31→14:15)
--- NOTE | 2016-05-22 08:05 | PN ---
Physical Exam: SUBJECTIVE: Patient seen and examined. says he can't tolerate the nasal cannula, needs the mask. slept well, has good appetite. Says he has not been out of bed this weekend. Denies chest pain, difficulty breathing, abdominal pain, cough, fever, difficulty urinating. OBJECTIVE: Vital Signs Period Temp Pulse Resp BP Sys/[place] Pulse Ox Last 24 Hr 96.6 F-98.6 F 90-100 20-20 114-138/57-70 94-98 GENERAL: The patient is awake, alert, and fully oriented, in no acute distress. HEAD: Normal with no signs of trauma. EYES: PERRL, extraocular movements intact ENT: oropharynx clear without exudates, eduntulism, moist mucous membranes. NECK: Trachea midline, full range of motion, supple. LUNGS: Breath sounds equal, clear to auscultation bilaterally, no wheezes, no crackles, no accessory muscle use. on venti mask 40% HEART: Regular rate and rhythm, S1, S2 without murmur, rub or gallop. ABDOMEN: obese, Soft, nontender, nondistended, normoactive bowel sounds, EXTREMITIES: 2+ in UE, 1+ pulses in b/l LE, warm, mild erythema on anterior b/ l LE - stable. well-perfused, 3/5 strength at right hip, knee. 3/5 on left hip and knee. 4/5 on plantar/dorsiflexion at toes. hand peer tutor b/l 5/5. NEUROLOGICAL: Normal speech, gait not observed. PSYCH: Normal mood, normal affect. Active Medications Generic Name Dose Route Start Last Admin Trade Name Freq PRN Reason Stop Dose Admin Albuterol Sulfate 1 amp 05/17/16 18:54 05/21/16 10:17 Ventolin 0.083% Nebulizer Soln - NEB 1 amp Q6H PRN Administration SHORT OF BREATH/WHEEZING Albuterol/Ipratropium 1 amp 05/17/16 22:00 05/22/16 06:29 Duoneb - NEB 1 amp TIDR [facility] Administration Amlodipine Besylate 10 mg 05/18/16 10:00 05/21/16 09:37 Norvasc - PO 10 mg DAILY [facility] Administration Aspirin 81 mg 05/18/16 10:00 05/21/16 09:37 Ecotrin - PO 81 mg DAILY [facility] Administration Docusate Sodium 100 mg 05/17/16 22:00 05/21/16 21:09 Colace - PO Not Given BID [facility] Duloxetine HCl 60 mg 05/18/16 10:00 05/21/16 09:36 Cymbalta - PO 60 mg DAILY [facility] Administration Epoetin Keith 10,000 unit 05/19/16 10:00 05/19/16 14:19 Procrit - SQ 10,000 unit MOWEFR@1000 [facility] Administration Ferrous Sulfate 325 mg 05/17/16 22:00 05/21/16 21:09 Feosol - PO 325 mg BID [facility] Administration Guaifenesin 600 mg 05/17/16 22:00 05/21/16 21:07 Mucinex - PO 600 mg BID [facility] Administration Heparin Sodium (Porcine) 5,000 unit 05/17/16 22:00 05/22/16 06:31 Heparin - SQ Not Given TID [facility] Mirtazapine 7.5 mg 05/17/16 22:00 05/21/16 21:07 Remeron - PO 7.5 mg HS [facility] Administration Nystatin 1 applic 05/18/16 10:00 05/21/16 09:37 Nystop Powder - TP 1 applic DAILY [facility] Administration Ondansetron HCl 4 mg 05/17/16 15:15 Zofran - PO Q8H PRN NAUSEA AND/OR VOMITING Pantoprazole Sodium 40 mg 05/18/16 10:00 05/21/16 09:37 Protonix - PO 40 mg DAILY [facility] Administration Polyethylene Glycol 17 gm 05/18/16 10:00 05/21/16 09:37 Miralax (For Daily Use) - PO Not Given DAILY [facility] Prednisone 30 mg 05/18/16 10:00 05/21/16 09:37 Deltasone - PO 30 mg DAILY [facility] Administration Pregabalin 25 mg 05/17/16 22:00 05/21/16 21:08 Lyrica - PO Not Given HS [facility] Sodium Chloride 2 spray 05/17/16 15:15 [place] Nasal [place] - NS Q12H PRN NASAL CONGESTION Tamsulosin HCl 0.4 mg 05/18/16 08:30 05/21/16 08:46 Flomax - PO 0.4 mg DAILY@0830 [facility] Administration Torsemide 40 mg 05/19/16 10:00 05/21/16 09:37 Demadex - PO 40 mg DAILY [facility] Administration ASSESSMENT/PLAN: 75 yr old with multiple pulmonary and cardiac co-morbidities, MRSA in sputum, recent ICU admission, BIBEMS for respiratory distress, with cardiac arrest and intubation in ED admitted to ICU for hypercapneic hypoxic respiratory failure secondary to acute CHf exacerbation. - stable for discharge, pending DONOVAN approval and placement. arrived from [facility], [facility] sent [facility] to [facility], awaiting response. #acute hypoxic hypercapneic respiratory failure likely secondary to diastolic chf - improved - s/p extubation, now on venti mask 40%, unable to tolerate nasal cannula - torsemide 40mg daily - duonebs - net negative fluid balance #deconditioning - will require rehab placement - OOB to chair with assistance daily - PT #COPD oxygen dependent likely exacerbated by HCAP, hx MRSA in sputum - prednisone 30mg po daily - completed abx Aztreonam 1gm BID IVPB, Vancomycin 1gm q48hr dosing -- start 05/14 - 05/19 - sputum cx with normal stiven #HTN - currently controlled - norvasc 10mg daily #CAD - cardiology consulted - ASA 81mg #CKD stage 3 - stable - monitor BMP #Anemia, chronic - monitor H/H, transfuse if <8.0 - s/p 1 unit of prbc's 05/14 - iron studies in 02/2016 with normal serum iron, ferritin, iron saturation, with TIBC low - procrit mwf - feosol 325mg po BID #constipation last BM 05/20 - colace 100mg po bid - miralax 17gm po daily Code status: FULL CODE Diet - fat sodium controlled DVT; Heparin TId GI: protonix 40mg IVPB daily Visit type - Emergency Visit Emergency Visit: No - New Patient This patient is new to me today: No - Critical Care Critical Care patient: No
[2016-05-22] MEDS: predniSONE 10 MG TABLET (UD) PO SCH (10:07)
[2016-05-22] MEDS: DULoxetine HCL 30 MG CAPSULE.DR (FP) PO SCH (10:08)
[2016-05-22] MEDS: FERROUS SO4 325 MG TABLET (FP) PO SCH (10:08)
[2016-05-22] MEDS: TAMSULOSIN HCL 0.4 MG CAP.ER.24H (FP) PO SCH (10:08)
[2016-05-22] MEDS: PANTOPRAZOLE 40 MG TABLET (FP) PO SCH (10:08)
[2016-05-22] MEDS: guaiFENesin 600 MG TABLET.ER (FP) PO SCH (10:08)
[2016-05-22] MEDS: DOCUSATE SODIUM 100 MG CAPSULE (FP) PO SCH (10:08)
[2016-05-22] MEDS: ASPIRIN COATED 81 MG TABLET.EC PO SCH (10:08)
[2016-05-22] MEDS: TORSEMIDE 20 MG TABLET (FP) PO SCH (10:09)
[2016-05-22] MEDS: POLYETHYLENE GLYCOL 3350 119 GM BTL PO SCH (10:09)
[2016-05-22] MEDS: amLODIPine BESYLATE 10 MG TABLET (FP) PO SCH (10:09)
[2016-05-22] MEDS: NYSTATIN POWDER 100,000 UNITS/GM - 15 GM TOPICAL POWDER TP SCH (10:15)
[2016-05-22] MEDS: ALBUTEROL SO4 0.083% IH SOL 2.5 MG/3 ML VIAL.NEB. NEB PRN (10:53)
--- NOTE | 2016-05-22 11:18 | PN ---
Progress Note, Physician History of Present Illness: seen and examined today in nad. states he is feeling overall better. plan to sit up in chair today. - Current Medication List Current Medications: Active Medications Albuterol Sulfate (Ventolin 0.083% Nebulizer Soln -) 1 amp NEB Q6H PRN PRN Reason: SHORT OF BREATH/WHEEZING Last Admin: 05/22/16 10:53 Dose: 1 amp Albuterol/Ipratropium (Duoneb -) 1 amp NEB TIDR [facility] Last Admin: 05/22/16 06:29 Dose: 1 amp Amlodipine Besylate (Norvasc -) 10 mg PO DAILY [facility] Last Admin: 05/22/16 10:09 Dose: 10 mg Aspirin (Ecotrin -) 81 mg PO DAILY [facility] Last Admin: 05/22/16 10:08 Dose: 81 mg Docusate Sodium (Colace -) 100 mg PO BID [facility] Last Admin: 05/22/16 10:08 Dose: Not Given Duloxetine HCl (Cymbalta -) 60 mg PO DAILY [facility] Last Admin: 05/22/16 10:08 Dose: 60 mg Epoetin Keith (Procrit -) 10,000 unit SQ MOWEFR@1000 [facility] Last Admin: 05/19/16 14:19 Dose: 10,000 unit Ferrous Sulfate (Feosol -) 325 mg PO BID [facility] Last Admin: 05/22/16 10:08 Dose: 325 mg Guaifenesin (Mucinex -) 600 mg PO BID [facility] Last Admin: 05/22/16 10:08 Dose: 600 mg Heparin Sodium (Porcine) (Heparin -) 5,000 unit SQ TID [facility] Last Admin: 05/22/16 06:31 Dose: Not Given Mirtazapine (Remeron -) 7.5 mg PO HS [facility] Last Admin: 05/21/16 21:07 Dose: 7.5 mg Nystatin (Nystop Powder -) 1 applic TP DAILY [facility] Last Admin: 05/22/16 10:15 Dose: 1 applic Ondansetron HCl (Zofran -) 4 mg PO Q8H PRN PRN Reason: NAUSEA AND/OR VOMITING Pantoprazole Sodium (Protonix -) 40 mg PO DAILY [facility] Last Admin: 05/22/16 10:08 Dose: 40 mg Polyethylene Glycol (Miralax (For Daily Use) -) 17 gm PO DAILY [facility] Last Admin: 05/22/16 10:09 Dose: Not Given Prednisone (Deltasone -) 30 mg PO DAILY [facility] Last Admin: 05/22/16 10:07 Dose: 30 mg Pregabalin (Lyrica -) 25 mg PO HS [facility] Last Admin: 05/21/16 21:08 Dose: Not Given Sodium Chloride ([place] Nasal [place] -) 2 spray NS Q12H PRN PRN Reason: NASAL CONGESTION Tamsulosin HCl (Flomax -) 0.4 mg PO DAILY@0830 [facility] Last Admin: 05/22/16 10:08 Dose: 0.4 mg Torsemide (Demadex -) 40 mg PO DAILY [facility] Last Admin: 05/22/16 10:09 Dose: 40 mg - Objective Vital Signs: Vital Signs Temperature 97.5 F L 05/22/16 09:25 Pulse Rate 99 H 05/22/16 10:54 Respiratory Rate 18 05/22/16 09:25 Blood Pressure 149/78 05/22/16 09:25 O2 Sat by Pulse Oximetry (%) 98 05/22/16 10:54 Constitutional: Yes: No Distress, Calm, Obese Eyes: Yes: Conjunctiva Clear, EOM Intact, PERRL HENT: Yes: Atraumatic, Normocephalic Neck: Yes: Supple, Trachea Midline Cardiovascular: Yes: Regular Rate and Rhythm, S1, S2. No: Bradycardia, Tachycardia, Pulse Irregular, Bruit, JVD, Gallop, Murmur, Rub, S3, S4, Varicosities Respiratory: Yes: Regular, Diminished. No: Rales, Rhonchi, Wheezes Gastrointestinal: Yes: Normal Bowel Sounds, Soft. No: Distention, Tenderness Musculoskeletal: Yes: Muscle Weakness Edema: No Peripheral Pulses WNL: Yes Peripheral Pulses: Left Doralis Pedis: 2+, Right Dorsalis Pedis: 2+ Integumentary: Yes: Venous Stasis Changes Neurological: Yes: Alert, Oriented Psychiatric: Yes: Alert, Oriented Labs: CBC, BMP 05/19/16 07:45 05/20/16 08:15 INR, PTT INR 1.07 (0.82-1.09) 05/14/16 09:41 - ....Imaging Chest X-ray: Report Reviewed, Image Reviewed EKG: Report Reviewed, Image Reviewed Other: Report Reviewed, Image Reviewed Assessment/Plan Acute on Chronic COPD, acute respiratory failure, PNA Acute on chronic diastolic CHF Recent Sepsis, gram + Bacteremia, infected HD catheter- removed Recent TARYN on CKD CAD h/o PCI REC: SOB-acute on chronic Resp failure: again required intubation recent admission also required intubation and s/p thoracentesis for pleural effusions -volume status at baseline, euvolemic -multifactorial secondary to COPD and chronic CHF and recurrent PNA -cont torsemide 40mg po daily -monitor strict I/Os daily weights and bun/creat electrolytes -ok from a cardiac standpoint for discharge planning CAD: s/p PCI with stents > 1 year ago- d/c Effient -stable -cont ASA 81mg daily -not on bblocker due to severe COPD
[2016-05-22] MEDS: EPOETIN ALFA 10,000 UNIT/1 ML VIAL SQ SCH (12:02)
[2016-05-22 13:47] VITALS: BP 139/71; PULSE 97; TEMP 97.6
--- NOTE | 2016-05-22 15:25 | PN ---
Progress Note, Physician History of Present Illness: patient stable much better breathing ohara sat at the edge of bed - Current Medication List Current Medications: Active Medications Albuterol Sulfate (Ventolin 0.083% Nebulizer Soln -) 1 amp NEB Q6H PRN PRN Reason: SHORT OF BREATH/WHEEZING Last Admin: 05/22/16 10:53 Dose: 1 amp Albuterol/Ipratropium (Duoneb -) 1 amp NEB TIDR [facility] Last Admin: 05/22/16 14:35 Dose: 1 amp Amlodipine Besylate (Norvasc -) 10 mg PO DAILY [facility] Last Admin: 05/22/16 10:09 Dose: 10 mg Aspirin (Ecotrin -) 81 mg PO DAILY [facility] Last Admin: 05/22/16 10:08 Dose: 81 mg Docusate Sodium (Colace -) 100 mg PO BID [facility] Last Admin: 05/22/16 10:08 Dose: Not Given Duloxetine HCl (Cymbalta -) 60 mg PO DAILY [facility] Last Admin: 05/22/16 10:08 Dose: 60 mg Epoetin Keith (Procrit -) 10,000 unit SQ MOWEFR@1000 [facility] Last Admin: 05/22/16 12:02 Dose: 10,000 unit Guaifenesin (Mucinex -) 600 mg PO BID [facility] Last Admin: 05/22/16 10:08 Dose: 600 mg Heparin Sodium (Porcine) (Heparin -) 5,000 unit SQ TID [facility] Last Admin: 05/22/16 14:15 Dose: Not Given Mirtazapine (Remeron -) 7.5 mg PO HS [facility] Last Admin: 05/21/16 21:07 Dose: 7.5 mg Multivitamins/Minerals (Theragran-M) 1 each PO DAILY [facility] Nystatin (Nystop Powder -) 1 applic TP DAILY [facility] Last Admin: 05/22/16 10:15 Dose: 1 applic Ondansetron HCl (Zofran -) 4 mg PO Q8H PRN PRN Reason: NAUSEA AND/OR VOMITING Pantoprazole Sodium (Protonix -) 40 mg PO DAILY [facility] Last Admin: 05/22/16 10:08 Dose: 40 mg Polyethylene Glycol (Miralax (For Daily Use) -) 17 gm PO DAILY [facility] Last Admin: 05/22/16 10:09 Dose: Not Given Prednisone (Deltasone -) 30 mg PO DAILY [facility] Last Admin: 05/22/16 10:07 Dose: 30 mg Pregabalin (Lyrica -) 25 mg PO HS [facility] Last Admin: 05/21/16 21:08 Dose: Not Given Sodium Chloride ([place] Nasal [place] -) 2 spray NS Q12H PRN PRN Reason: NASAL CONGESTION Tamsulosin HCl (Flomax -) 0.4 mg PO DAILY@0830 [facility] Last Admin: 05/22/16 10:08 Dose: 0.4 mg Torsemide (Demadex -) 40 mg PO DAILY [facility] Last Admin: 05/22/16 10:09 Dose: 40 mg - Objective Vital Signs: Vital Signs Temperature 97.6 F 05/22/16 13:44 Pulse Rate 97 H 05/22/16 13:44 Respiratory Rate 20 05/22/16 13:44 Blood Pressure 139/71 05/22/16 13:44 O2 Sat by Pulse Oximetry (%) 98 05/22/16 10:54 Constitutional: Yes: No Distress, Calm Cardiovascular: Yes: Regular Rate and Rhythm Respiratory: Yes: Regular, On Venti-Mask, Poor Air Entry Gastrointestinal: Yes: Normal Bowel Sounds, Soft Musculoskeletal: Yes: Other Extremities: Yes: Other Edema: LLE: 1+, RLE: 1+ Neurological: Yes: Alert, Oriented Psychiatric: Yes: Alert Labs: CBC, BMP 05/19/16 07:45 05/20/16 08:15 INR, PTT INR 1.07 (0.82-1.09) 05/14/16 09:41 Assessment/Plan Problem List - Problems (1) Acute and chronic respiratory failure ([id number]) Code(s): J96.20 - ACUTE AND CHR RESP FAILURE, UNSP W HYPOXIA OR HYPERCAPNIA Qualifiers: Respiratory failure complication: hypoxia and hypercapnia Qualified Code(s): J96.21 - Acute and chronic respiratory failure with hypoxia (2) Congestive heart failure Code(s): I50.9 - HEART FAILURE, UNSPECIFIED (3) Renal insufficiency Code(s): N28.9 - DISORDER OF KIDNEY AND URETER, UNSPECIFIED (4) Acute exacerbation of chronic obstructive pulmonary disease (COPD) Code(s): J44.1 - CHRONIC OBSTRUCTIVE PULMONARY DISEASE W (ACUTE) EXACERBATION sepsis pneumonia plan contiue current mgmt incentive igor out of bed physio
--- NOTE | 2016-05-22 15:32 | PN ---
Teaching Attending Note Name of Resident: Melody Banks ATTENDING PHYSICIAN STATEMENT I saw and evaluated the patient. I reviewed the resident's note and discussed the case with the resident. I agree with the resident's findings and plan as documented. SUBJECTIVE: no fever or chills, diarrhea resolved . no SOB OBJECTIVE: NAD Cv: RRR Lungs: decreased breath sounds at bases ext : 1 + pitting edema ,minimal erythema and thick skin with no discharge ASSESSMENT AND PLAN: 75 year-old man with a PMHx of HTN, PVD, COPD, CKD (baseline Cr 1.8), nephrolithiasis, D CHF , CAD s/p stenting in 03/23 , chronic LE lymphedema and recent hospitalizations for acute resp failure from acute CHF who presented with SOB and was found to have acute hypoxic hypercapnic resp failure . 1- Acute hypoxic hypercapnic resp failure due to acute on chronic diastolic heart failure Cont demadex 40 mg Received 6 days of Abx . 2- H/o COPD , not active , cont maintenance prednisone at 30 3- Diarrhea : due to laxatives . resolved 4-CKD: stable cr , cont to monitor procrit is being given 46510 units MWF. Rehab will not accept him on this dose , will change to NEpogen 26119 units weekly ( the only covered dose ) 5- Normocytic anemia. stable at base line cont procrit 6- HTN: cont norvasc 7- CAD : Stenting 03/23 . Cont asa. dispo : dc to rehab today
--- NOTE | 2016-05-22 15:36 | PN ---
Progress Note, Physician History of Present Illness: NAD. Alert and oriented - Current Medication List Current Medications: Active Medications Albuterol Sulfate (Ventolin 0.083% Nebulizer Soln -) 1 amp NEB Q6H PRN PRN Reason: SHORT OF BREATH/WHEEZING Last Admin: 05/22/16 10:53 Dose: 1 amp Albuterol/Ipratropium (Duoneb -) 1 amp NEB TIDR [facility] Last Admin: 05/22/16 14:35 Dose: 1 amp Amlodipine Besylate (Norvasc -) 10 mg PO DAILY [facility] Last Admin: 05/22/16 10:09 Dose: 10 mg Aspirin (Ecotrin -) 81 mg PO DAILY [facility] Last Admin: 05/22/16 10:08 Dose: 81 mg Docusate Sodium (Colace -) 100 mg PO BID [facility] Last Admin: 05/22/16 10:08 Dose: Not Given Duloxetine HCl (Cymbalta -) 60 mg PO DAILY [facility] Last Admin: 05/22/16 10:08 Dose: 60 mg Epoetin Keith (Procrit -) 10,000 unit SQ MOWEFR@1000 [facility] Last Admin: 05/22/16 12:02 Dose: 10,000 unit Guaifenesin (Mucinex -) 600 mg PO BID [facility] Last Admin: 05/22/16 10:08 Dose: 600 mg Heparin Sodium (Porcine) (Heparin -) 5,000 unit SQ TID [facility] Last Admin: 05/22/16 14:15 Dose: Not Given Mirtazapine (Remeron -) 7.5 mg PO HS [facility] Last Admin: 05/21/16 21:07 Dose: 7.5 mg Multivitamins/Minerals (Theragran-M) 1 each PO DAILY [facility] Nystatin (Nystop Powder -) 1 applic TP DAILY [facility] Last Admin: 05/22/16 10:15 Dose: 1 applic Ondansetron HCl (Zofran -) 4 mg PO Q8H PRN PRN Reason: NAUSEA AND/OR VOMITING Pantoprazole Sodium (Protonix -) 40 mg PO DAILY [facility] Last Admin: 05/22/16 10:08 Dose: 40 mg Polyethylene Glycol (Miralax (For Daily Use) -) 17 gm PO DAILY [facility] Last Admin: 05/22/16 10:09 Dose: Not Given Prednisone (Deltasone -) 30 mg PO DAILY [facility] Last Admin: 05/22/16 10:07 Dose: 30 mg Pregabalin (Lyrica -) 25 mg PO HS [facility] Last Admin: 05/21/16 21:08 Dose: Not Given Sodium Chloride ([place] Nasal [place] -) 2 spray NS Q12H PRN PRN Reason: NASAL CONGESTION Tamsulosin HCl (Flomax -) 0.4 mg PO DAILY@0830 [facility] Last Admin: 05/22/16 10:08 Dose: 0.4 mg Torsemide (Demadex -) 40 mg PO DAILY [facility] Last Admin: 05/22/16 10:09 Dose: 40 mg - Objective Vital Signs: Vital Signs Temperature 97.6 F 05/22/16 13:44 Pulse Rate 97 H 05/22/16 13:44 Respiratory Rate 20 05/22/16 13:44 Blood Pressure 139/71 05/22/16 13:44 O2 Sat by Pulse Oximetry (%) 98 05/22/16 10:54 Constitutional: Yes: No Distress Eyes: No: Sclera Icterus HENT: Yes: Atraumatic, Normocephalic Neck: Yes: Supple Cardiovascular: Yes: Regular Rate and Rhythm. No: JVD Respiratory: Yes: Rhonchi (scattered) Gastrointestinal: Yes: Soft. No: Tenderness Edema: No Neurological: Yes: Alert, Oriented Labs: CBC, BMP 05/19/16 07:45 05/20/16 08:15 INR, PTT INR 1.07 (0.82-1.09) 05/14/16 09:41 Problem List - Problems (1) Congestive heart failure Code(s): I50.9 - HEART FAILURE, UNSPECIFIED (2) Acute exacerbation of chronic obstructive pulmonary disease (COPD) Code(s): J44.1 - CHRONIC OBSTRUCTIVE PULMONARY DISEASE W (ACUTE) EXACERBATION (3) Chronic kidney disease (CKD) Code(s): N18.9 - CHRONIC KIDNEY DISEASE, UNSPECIFIED Qualifiers: Chronic kidney disease stage: unspecified stage Qualified Code(s): N18.9 - Chronic kidney disease, unspecified Assessment/Plan Acute Exacerbation COPD: improved Acute respiratory Failure resolved CHF- improved Chronic Renal Insufficiency: Creatinine down to 1.3 Plan: Inhaled bronchodilators Steroid taper in progress O2 to maintain SaO2>90 Demadex Discharge planning to SNF for rehab
--- NOTE | 2016-05-22 15:36 | DS ---
Physical Exam: SUBJECTIVE: Patient seen and examined. Respiratation and edema improved, stable for rehab at [facility]. OBJECTIVE: Vital Signs Period Temp Pulse Resp BP Sys/[place] Pulse Ox Last 24 Hr 96.6 F-98.6 F 91-100 18-20 114-149/57-78 94-98 PHYSICAL EXAM GENERAL: The patient is awake, alert, and fully oriented, in no acute distress. HEAD: Normal with no signs of trauma. EYES: PERRL, extraocular movements intact ENT: oropharynx clear without exudates, eduntulism, moist mucous membranes. NECK: Trachea midline, full range of motion, supple. LUNGS: Breath sounds equal, clear to auscultation bilaterally, no wheezes, no crackles, no accessory muscle use. on venti mask 40% HEART: Regular rate and rhythm, S1, S2 without murmur, rub or gallop. ABDOMEN: obese, Soft, nontender, nondistended, normoactive bowel sounds, EXTREMITIES: 2+ in UE, 1+ pulses in b/l LE, warm, mild erythema on anterior b/ l LE - stable. well-perfused, 3/5 strength at right hip, knee. 3/5 on left hip and knee. 4/5 on plantar/dorsiflexion at toes. hand door trimmer b/l 5/5. NEUROLOGICAL: Normal speech, gait not observed. PSYCH: Normal mood, normal affect. LABS Intake & Output 05/19/16 05/20/16 05/21/16 05/22/16 23:59 23:59 23:59 23:59 Intake Total 1100 1900 850 420 Output Total 1400 1350 1000 Balance -300 550 -150 420 Weight 200 lb 3.2 oz Microbiology 05/14/16 09:00 Nasopharyngeal Swab Respiratory Virus Panel - Final - NEGATIVE 05/14/16 09:00 Blood - Peripheral Venous Blood Culture - Final NO GROWTH AFTER 5 DAYS INCUBATION 05/14/16 09:00 Blood - Peripheral Venous Blood Culture - Final NO GROWTH AFTER 5 DAYS INCUBATION 05/14/16 Unknown Sputum - Endotrachea Suction/Ventilator Sputum Culture - Final NORMAL RESPIRATORY FAWN 05/14/16 10:02 Urine - Urine Clean Catch Urine Culture - Final Yeast Like Organism 05/14/16 09:00 Nasopharyngeal Swab Influenza Types A,B Antigen (TONI) - Final - NEGATIVE Laboratory Tests 05/14/16 05/14/16 09:00 09:00 WBC 11.0 H RBC 3.09 L Hgb 8.1 L Hct 27.1 L MCV 87.8 MCHC 30.0 L RDW 17.6 H Plt Count 252 D MPV 7.4 L Neutrophils % 77.8 Lymphocytes % 8.8 D Monocytes % 6.6 Eosinophils % 6.2 H Basophils % 0.6 Sodium 144 Potassium 4.5 Chloride 99 Carbon Dioxide 34 H Anion Gap 11 BUN 24 H D Creatinine 2.0 H Creat Clearance w eGFR 32.92 Random Glucose 80 D Calcium 8.2 L Total Bilirubin 0.4 D AST 20 D ALT 7 L Alkaline Phosphatase 125 H D Creatine Kinase 26 L Troponin I < 0.02 Total Protein 5.7 L Albumin 2.3 L 05/14/16 05/14/16 05/14/16 14:00 21:08 21:08 WBC 7.9 RBC 2.71 L Hgb 7.2 L D Hct 23.3 L MCV 85.8 MCHC 30.7 L RDW 17.6 H Plt Count 210 MPV 7.0 L Puncture Site Left radial ABG pH 7.38 ABG pCO2 at Pt Temp 54.8 H D ABG pO2 at Pt Temp 72.3 D ABG HCO3 31.3 H ABG O2 Sat (Measured) 94.4 ABG O2 Content 10.0 L ABG Base Excess 5.8 H Issac Test Positive O2 Delivery Device Mech vent Oxygen Flow Rate 50% Vent Mode A/c Vent Rate 18 Mechanical Rate Yes PEEP 5.0 Pressure Support Vent 500 Potassium 4.4 Chloride 98 Carbon Dioxide 31 Anion Gap 13 BUN 29 H D Creatinine 2.3 H Creat Clearance w eGFR 28.01 Random Glucose 139 H D Lactic Acid Calcium 7.7 L Phosphorus 3.5 Magnesium 2.5 H Total Bilirubin 0.3 D AST 13 L D ALT 6 L Alkaline Phosphatase 109 Creatine Kinase Troponin I Total Protein 5.1 L Albumin 2.1 L 05/19/16 05/20/16 07:45 08:15 Sodium 143 142 Potassium 3.8 3.7 Chloride 99 101 Carbon Dioxide 35 H 35 H Anion Gap 9 6 L BUN 41 H 39 H Creatinine 1.6 H D 1.3 Random Glucose 89 86 Calcium 7.6 L 8.0 L HOSPITAL COURSE: Date of Admission:05/14/16 - Date of Discharge: 05/22/16 75 yr man with 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 He was intubated in ED and extubated on day 3 in the ICU. He was diurised with lasix 40mg IV for 3 days and he improved, he was switched to torsemide 40mg daily. His weight trended down, edema decreased and breathing improved clinically. For suspected pneumonia he was treated with Aztreonam 1gm BID IV for 7 days and Vancomycin 1gm doses on 05/14, 05/16, 05/18. Daily chest xrays showed bilateral effusions with congestive changes and questionable basilar atelectatisis or infiltrates. On clinical exam he improved, he remained afebrile without leucocytosis. Medications changes: STOP effient 10mg - s/p PCI with stents > 1 year ago, maintain in ASA 81mg daily STOP feosol 325mg BID - iron studies 01/2016 do not show ROBI, anemia likely from renal insuffiency, maintain on epogen 20,000 qweekly. Minutes to complete discharge: 44 Discharge Summary Reason For Visit: SOB, COPD, PNUEMONIA Current Active Problems Pneumonia (Acute) Condition: Improved - Instructions Diet, Activity, Other Instructions: You are being transferred to [facility] for rehab. Follow-up with your director of hospitality, Dr. Ferrer, your plier worker, and your primary care physician, Dr. Javed, once discharged from rehab. Continue your medications with the following changes: Epogen 50703 units weekly Torsemide 40mg daily STOP the Effient 10mg tablet and ferrous sulfate 325mg twice daily Referrals: Ceci Javed MD [Primary Care Provider] - Herminio Ferrer MD [Staff Physician] - Alejandro Sotomayor MD [Staff Physician] - Disposition: [facility] F[facility] - Home Medications Comprehensive Discharge Medication List: Ambulatory Orders Albuterol 0.083% Nebulizer [place] [Ventolin 0.083% Nebulizer Soln -] 1 amp NEB ASDIR PRN 02/18/16 Aspirin [Ecotrin] 81 mg PO DAILY 02/18/16 Amlodipine Besylate [Norvasc -] 10 mg PO DAILY #30 tablet 04/12/16 Docusate Sodium [Colace -] 100 mg PO BID #60 capsule 04/12/16 Duloxetine HCl [Cymbalta -] 30 mg PO DAILY #30 capsule. 04/12/16 Pantoprazole Sodium [Protonix -] 40 mg PO DAILY tablet.ec 04/12/16 Sodium Chloride Nasal [place] [[place] Nasal [place] -] 2 spray NS Q12H PRN #0 bottle 04/12/16 Guaifenesin [Mucinex] 600 mg PO Q12H 04/25/16 Mirtazapine [Remeron -] 7.5 mg PO HS 04/25/16 Pregabalin [Lyrica] 25 mg PO HS 04/25/16 Salmeterol/Fluticasone [Advair 100Mcg/50Mcg -] 1 inh PO BID 04/25/16 Sennosides [Senna] 2 tab PO HS 04/25/16 Albuterol 2.5/Ipratropium 0.5 [Duoneb -] 1 amp NEB TIDR amp 05/01/16 Tamsulosin HCl [Flomax -] 0.4 mg PO DAILY@0830 cap.er.24h 05/01/16 Torsemide [Demadex -] 40 mg PO DAILY tablet 05/01/16 Aa/Hydrolyzed Collagen, Whey [Lps 15-30 Liquid] 30 ml PO BID 05/14/16 Ondansetron HCl [Zofran] 4 mg PO Q8H PRN 05/14/16 Amlodipine Besylate [Norvasc -] 10 mg PO DAILY tablet 05/22/16 Aspirin Coated [Ecotrin -] 81 mg PO DAILY tablet.ec 05/22/16 Epoetin Keith [Epogen] 20,000 unit SQ WEEKLY #12 dose 05/22/16 Mirtazapine [Remeron -] 7.5 mg PO HS tablet 05/22/16 Nystatin Powder [Nystop Powder -] 1 applic TP DAILY applic 05/22/16 Pantoprazole Sodium [Protonix -] 40 mg PO DAILY tablet.ec 05/22/16 Prednisone [Deltasone -] 30 mg PO DAILY tablet 05/22/16 This patient is new to me today: No Emergency Visit: No Critical Care patient: No - Discharge Referral Referred to [facility] No
[2016-05-23] MEDS ORDERED: MULTIVITAMINS THER W-MINERALS COMBO TABLET (FP) PO SCH (10:00)
== END 2016-05-22 17:49 | DRG 871 ==
LOC: JER 08:34 → JERBED 12:47 → JICU 14:53 → J7W 05-18 16:35
PROVIDERS: ADMIT Internal Medicine; ATTEND Internal Medicine
PROC: 0BH17EZ Insertion of Endotracheal Airway into Trachea, Via Natural or Artificial Opening (ICD-10-PCS; principal; 2016-05-14)
PROC: 5A1945Z Respiratory Ventilation, 24-96 Consecutive Hours (ICD-10-PCS; 2016-05-14)
PROC: 06HM33Z Insertion of Infusion Device into Right Femoral Vein, Percutaneous Approach (ICD-10-PCS; 2016-05-14)
PROC: 30233N1 Transfusion of Nonautologous Red Blood Cells into Peripheral Vein, Percutaneous Approach (ICD-10-PCS; 2016-05-14)
DX: A41.9 Sepsis, unspecified organism (principal); J96.02 Acute respiratory failure with hypercapnia; J18.9 Pneumonia, unspecified organism; I50.33 Acute on chronic diastolic (congestive) heart failure; J96.01 Acute respiratory failure with hypoxia; N17.9 Acute kidney failure, unspecified; J44.1 Chronic obstructive pulmonary disease with (acute) exacerbation; I13.0 Hypertensive heart and chronic kidney disease with heart failure and stage 1 through stage 4 chronic kidney disease, or unspecified chronic kidney disease; N18.4 Chronic kidney disease, stage 4 (severe); I25.10 Atherosclerotic heart disease of native coronary artery without angina pectoris; D64.9 Anemia, unspecified; E78.00 Pure hypercholesterolemia, unspecified; G47.33 Obstructive sleep apnea (adult) (pediatric); D63.1 Anemia in chronic kidney disease; I73.89 Other specified peripheral vascular diseases; Z87.442 Personal history of urinary calculi; Z95.5 Presence of coronary angioplasty implant and graft; Z99.81 Dependence on supplemental oxygen
CPT/HCPCS: 36415; 36430; 36600; 71010-TC; 80048; 80053; 81003; 81015; 82375; 82550; 82803; 83050; 83605; 83735; 84100; 84484; 85025; 85027; 85610; 85730; 86850; 86900; 86901; 86922; 87040; 87070; 87077; 87086; 87205; 87254; 87804; 93005; 93010; 93306-TC; 94002; 94010; 94640; 97162-PG; 99285-25; G0480; J0885; J1644; P9058

== ENCOUNTER 2016-07-07 14:15 | Emergency (ER) | payer OTHER ==
[2016-07-07 14:31] VITALS: BMI 29.4
--- NOTE | 2016-07-07 14:39 | PDOC ---
History of Present Illness - General History Source: Patient Exam Limitations: No Limitations - History of Present Illness Initial Comments: 07/07/16 14:39 CHIEF COMPLAINT: Constipation HISTORY OF PRESENT ILLNESS: This is a 75 year old male with a history of COPD ( O2 dependent- uses Ventimask 40%, multiple ICU stays and intubation), anemia, HTN, CKD 3, PVD, CAD s/p stents x 2, and CHF with diastolic dysfunction sent from the [facility] with 6 days of abdominal distention and constipation. Xray 07/06 showed non-obstructive ileus. He reports abdominal discomfort. He states that he has been able to pass gas. V/s on arrival are notable for P 95. REVIEW OF SYSTEMS: GENERAL/CONSTITUTIONAL: No fever or chills. No weakness. No weight change. HEAD, EYES, EARS, NOSE AND THROAT: No change in vision. No ear pain or discharge. No sore throat. CARDIOVASCULAR: No chest pain or palpitations. RESPIRATORY: No cough, wheezing, or shortness of breath. GASTROINTESTINAL: See HPI. GENITOURINARY: No dysuria, frequency, or change in urination. MUSCULOSKELETAL: No joint or muscle swelling or pain. No neck or back pain. SKIN: No rash or easy bruising. NEUROLOGIC: No headache, vertigo, loss of consciousness, or loss of sensation. PSYCHIATRIC: No depression or anxiety. ENDOCRINE: No increased thirst. No abnormal weight change. HEMATOLOGIC/LYMPHATIC: No anemia, easy bleeding, or history of blood clots. ALLERGIC/IMMUNOLOGIC: No hives or skin allergy. No latex allergy. PHYSICAL EXAM: GENERAL: The patient is awake, alert, and fully oriented, in no acute distress. HEAD: Normal with no signs of trauma. ENT: Pupils equal, round and reactive to light, extraocular movements intact, sclera anicteric, conjunctiva clear. Neck supple. LUNGS: Clear to auscultation bilaterally. Normal excursion. No respiratory distress or use of accessory muscles. CV: RRR, S1/S2, no MRG. Cap refill < 2 sec. ABDOMEN: Soft, distended, + bowel sounds all 4 quadrants. EXTREMITIES: Normal range of motion. 1+ LE edema and venous stasis changes with cobblestoning. NEUROLOGICAL: Normal speech, normal gait. CN II-XII grossly intact. PSYCH: Normal mood, normal affect. SKIN: Warm, dry, normal turgor, no rashes or lesions noted. <Claire Mcdermott - Last Filed: 07/07/16 17:37> <Jacques Waller - Last Filed: 07/08/16 03:02> - General Chief Complaint: Pain, Acute Stated Complaint: BAIL OBSTRUCTION Time Seen by Provider: 07/07/16 14:33 Past History - Past Medical History Anemia: Yes Asthma: No Cancer: No Cardiac Disorders: Yes (CAD - 2 cardiac stents placed 03/26/2015) CVA: No COPD: Yes (resp failure) CHF: Yes Dementia: No Diabetes: (unknown) GI Disorders: Yes (H/O mild GI bleed) Disorders: No HTN: Yes Hypercholesterolemia: Yes Liver Disease: No Seizures: No Thyroid Disease: No - Surgical History Abdominal Surgery: No Appendectomy: No Cardiac Surgery: Yes (2 cardiac stents) Cholecystectomy: No Lung Surgery: No Neurologic Surgery: No Orthopedic Surgery: No - Immunization History Immunization Up to Date: Yes - Psycho/Social/Smoking Cessation Hx Anxiety: No Suicidal Ideation: No Smoking Status: Yes Smoking History: Former smoker Have you smoked in the past 12 months: No Number of Cigarettes Smoked Daily: 0 If you are a former smoker, when did you quit?: 6 years Information on smoking cessation initiated: No 'Breaking Loose' booklet given: 04/01/15 Hx Alcohol Use: No Drug/Substance Use Hx: No Substance Use Type: None Hx Substance Use Treatment: No <Claire Mcdermott - Last Filed: 07/07/16 17:37> <Jacques Waller - Last Filed: 07/08/16 03:02> - Past Medical History Allergies/Adverse Reactions: Allergies Allergy/AdvReac Type Severity Reaction Status Date / Time Penicillins Allergy Verified 05/14/16 09:02 Home Medications: Ambulatory Orders Aspirin [Ecotrin] 81 mg PO DAILY 02/18/16 Amlodipine Besylate [Norvasc -] 10 mg PO DAILY #30 tablet 04/12/16 Docusate Sodium [Colace -] 100 mg PO BID #60 capsule 04/12/16 Duloxetine HCl [Cymbalta -] 30 mg PO DAILY #30 capsule. 04/12/16 Pantoprazole Sodium [Protonix -] 40 mg PO DAILY tablet.ec 04/12/16 Sodium Chloride Nasal [place] [[place] Nasal [place] -] 2 spray NS Q12H PRN #0 bottle 04/12/16 Guaifenesin [Mucinex] 600 mg PO Q12H 04/25/16 Mirtazapine [Remeron -] 7.5 mg PO HS 04/25/16 Pregabalin [Lyrica] 25 mg PO HS 04/25/16 Salmeterol/Fluticasone [Advair 100Mcg/50Mcg -] 1 inh PO BID 04/25/16 Sennosides [Senna] 2 tab PO HS 04/25/16 Albuterol 2.5/Ipratropium 0.5 [Duoneb -] 1 amp NEB TIDR amp 05/01/16 Tamsulosin HCl [Flomax -] 0.4 mg PO DAILY@0830 cap.er.24h 05/01/16 Torsemide [Demadex -] 40 mg PO DAILY tablet 05/01/16 Aa/Hydrolyzed Collagen, Whey [Lps 15-30 Liquid] 30 ml PO BID 05/14/16 Aspirin Coated [Ecotrin -] 81 mg PO DAILY tablet.ec 05/22/16 Epoetin Keith [Epogen] 20,000 unit SQ WEEKLY #12 dose 05/22/16 Nystatin Powder [Nystop Powder -] 1 applic TP DAILY applic 05/22/16 Prednisone [Deltasone -] 30 mg PO DAILY tablet 05/22/16 Acetaminophen [Tylenol] 325 mg PO DAILY 07/07/16 Duloxetine HCl [Cymbalta] 60 mg PO DAILY 07/07/16 Ferrous Sulfate 325 mg PO DAILY 07/07/16 Fluticasone/Vilanterol [Breo Ellipta 100-25 Mcg INH] 1 each IH DAILY 07/07/16 Lps 15-30 Liquid 30 ml PO DAILY 07/07/16 Miralax 119 gm Btl - 17 gm PO DAILY 07/07/16 Mirtazapine [Remeron -] 15 mg PO DAILY 07/07/16 *Physical Exam - Vital Signs Last Vital Signs Temp Pulse Resp BP Pulse Ox 98.5 F 89 18 142/70 98 07/07/16 14:27 07/07/16 14:27 07/07/16 14:27 07/07/16 14:27 07/07/16 14:27 <Claire Mcdermott - Last Filed: 07/07/16 17:37> - Vital Signs Last Vital Signs Temp Pulse Resp BP Pulse Ox 97.7 F 78 19 137/73 98 07/07/16 23:40 07/07/16 23:40 07/07/16 23:40 07/07/16 23:40 07/07/16 23:40 <Jacques Waller - Last Filed: 07/08/16 03:02> Heart Score/ECG Review - ECG Intrepretation Comment:: 07/07/16 15:36 Sinus rhythm with PACs at 91bpm. <Claire Mcdermott - Last Filed: 07/07/16 17:37> ED Treatment Course - LABORATORY CBC & Chemistry Diagram: 07/07/16 14:50 07/07/16 14:50 - RADIOLOGY Radiology Studies Ordered: Category Date Time Status ABDOMEN FLAT & UPRIGHT [RAD] Stat Radiology 07/07/16 14:34 Ordered CHEST X-RAY PORTABLE* [RAD] Stat Radiology 07/07/16 14:34 Ordered <Claire Mcdermott - Last Filed: 07/07/16 17:37> - LABORATORY CBC & Chemistry Diagram: 07/07/16 14:50 07/07/16 14:50 - ADDITIONAL ORDERS Additional order review: Laboratory Results 07/07/16 07/07/16 07/07/16 21:05 16:10 16:10 INR 0.96 Sodium Potassium Chloride Carbon Dioxide Anion Gap BUN Creatinine Creat Clearance w eGFR Random Glucose Calcium Total Bilirubin AST ALT Alkaline Phosphatase Creatine Kinase 14 L Troponin I < 0.02 Total Protein Albumin TSH 6.76 H D Urine Color Colorless Urine Appearance Clear Urine pH 6.0 Ur Specific [place] 1.008 Urine Protein Negative Urine Glucose (UA) Negative Urine Ketones Negative Urine Blood Negative Urine Nitrite Negative Urine Bilirubin Negative Urine Urobilinogen Negative Ur Leukocyte Esterase Negative 07/07/16 14:50 INR Sodium 143 Potassium 3.9 Chloride 99 Carbon Dioxide 38 H Anion Gap 6 L BUN 34 H Creatinine 1.5 H Creat Clearance w eGFR 45.87 Random Glucose 137 H D Calcium 8.5 Total Bilirubin 0.5 D AST 12 L ALT 16 D Alkaline Phosphatase 75 Creatine Kinase Troponin I Total Protein 6.0 L Albumin 3.2 L D TSH Urine Color Urine Appearance Urine pH Ur Specific [place] Urine Protein Urine Glucose (UA) Urine Ketones Urine Blood Urine Nitrite Urine Bilirubin Urine Urobilinogen Ur Leukocyte Esterase 07/07/16 14:50 RBC 3.61 L MCV 86.4 MCHC 32.0 RDW 17.8 H MPV 6.9 L Neutrophils % 86.6 H Lymphocytes % 6.0 L D Monocytes % 5.7 Eosinophils % 1.4 Basophils % 0.3 - Medications Given in the ED: ED Medications Discontinued Medications Generic Name Dose Route Start Last Admin Trade Name Aylin PRN Reason Stop Dose Admin Lactulose 20 gm 07/07/16 22:18 07/07/16 22:30 Cephulac (Oral Use) PO 07/07/16 22:19 20 gm ONCE ONE Administration Mineral Oil 133 ml 07/07/16 22:18 07/07/16 22:30 Fleet Mineral Oil Rectal Enema - MD 07/07/16 22:19 133 ml NOW ONE Administration Mineral Oil 133 ml 07/07/16 23:46 07/08/16 00:04 Fleet Mineral Oil Rectal Enema - MD 07/07/16 23:47 133 ml NOW ONE Administration Ondansetron HCl 4 mg 07/07/16 18:29 07/07/16 18:36 Zofran Injection IVPUSH 07/07/16 18:30 4 mg ONCE ONE Administration <Jacqeus Waller - Last Filed: 07/08/16 03:02> Medical Decision Making - Medical Decision Making 07/07/16 15:31 A/P: 75 year old male with abdominal distention and constipation, likely ileus. 1. AXR 2. Basic labs 3. Re-assess <Claire Mcdermott - Last Filed: 07/07/16 17:37> - Medical Decision Making 07/08/16 02:59 PATIENT HAD XLG BOWEL MOVEMENT. WILL D/C BACK TO RETIREMENT FACILITY. <Jacques Waller - Last Filed: 07/08/16 03:02> *DC/Admit/Observation/Transfer <Claire Mcdermott - Last Filed: 07/07/16 17:37> - Discharge Dispostion Admit: No <Jacques Waller - Last Filed: 07/08/16 03:02> Diagnosis at time of Disposition: Constipation Qualifiers: Constipation type: other constipation type Qualified Code(s): K59.09 - Other constipation - Discharge Dispostion Disposition: RETIREMENT FACILITY Condition at time of disposition: Improved - Patient Instructions Printed Discharge Instructions: DI for Constipation Additional Instructions: INCREASE FIBER IN DIET. DRINK PLENTY FLUIDS. Print Language: STATELESS
[2016-07-07 15:01] LABS: BASOPHIL 0.3 % (0-2.0); EOSINOPHIL 1.4 % (0-4.5); MCH 27.6 pg (25.7-33.7); MEAN CELL VOLUME 86.4 fl (80-96); MEAN PLT VOLUME 6.9 fl (7.5-11.1); NEUTROPHILS 86.6 % (42.8-82.8); PLATELET COUNT 184 K/MM3 (134-434); RDW 17.8 % (11.9-15.9)
[2016-07-07 15:30] LABS: ALBUMIN 3.2 g/dl (3.4-5.0); CALCIUM 8.5 mg/dL (8.5-10.1); CREATININE 1.5 mg/dL (0.7-1.3)
[2016-07-07 15:32] LABS: BILIRUBIN,TOTAL 0.5 mg/dL (0.2-1.0)
[2016-07-07 17:26] LABS: INR 0.96 (0.82-1.09); PROTHROMBIN TIME (PATIENT) 10.5 SEC (9.98-11.88)
[2016-07-07 17:54] LABS: THYROID STIMULATING HORMONE 6.76 uIU/ml (0.358-3.74); TROPONIN I < 0.02 ng/ml (0.00-0.05)
[2016-07-07] MEDS ORDERED: ONDANSETRON 4 MG/2 ML VIAL IVPUSH ONE (18:29)
[2016-07-07] MEDS ORDERED: ONDANSETRON 4 MG/2 ML VIAL ONE (18:31)
[2016-07-07 21:41] LABS: URINE APPEARANCE CLEAR; URINE BILIRUBIN NEGATIVE (NEGATIVE); URINE BLOOD NEGATIVE (NEGATIVE); URINE COLOR COLORLESS; URINE GLUCOSE (UA) NEGATIVE (NEGATIVE); URINE KETONE NEGATIVE (NEGATIVE); URINE LEUK ESTERASE NEGATIVE (NEGATIVE); URINE NITRITE NEGATIVE (NEGATIVE); URINE PROTEIN NEGATIVE (NEGATIVE); URINE UROBILINOGEN NEGATIVE E.U./dl (0.2-1.0)
[2016-07-07] MEDS ORDERED: LACTULOSE 20 GM/30 ML UDC (FOR ORAL USE ONLY) PO ONE (22:18)
[2016-07-07] MEDS ORDERED: MINERAL OIL ENEMA 133 ML ENEMA PR ONE ×2 (22:18→23:46)
[2016-07-07] MEDS ORDERED: LACTULOSE 20 GM/30 ML UDC (FOR ORAL USE ONLY) ONE (23:46)
[2016-07-08] MEDS ORDERED: PEG3350/SOD SULF,BICARB,CL/KCL 4,000 ML SOLN.RECON PO ONE ×2 (01:44→02:06)
[2016-07-08 02:14] VITALS: TEMP 97.7
[2016-07-08 03:26] VITALS: BP 131/65; PULSE 79
--- NOTE | 2016-07-08 12:23 | EKG ---
Test Reason : Blood Pressure : / mmHG Vent. Rate : 093 BPM Atrial Rate : 032 BPM P-R Int : 000 ms QRS Dur : 150 ms QT Int : 388 ms P-R-T Axes : 000 039 048 degrees QTc Int : 482 ms POOR DATA QUALITY, INTERPRETATION MAY BE ADVERSELY AFFECTED ATRIAL FIBRILLATION versus SINUS RHYTHM WITH PACs RIGHT BUNDLE BRANCH BLOCK ABNORMAL ECG Confirmed by RASTA BERUMEN MD ([id number]) on 07/08/2016 12:22:49 PM Referred By: Confirmed By:RASTA BERUMEN MD
--- NOTE | 2016-07-08 12:25 | EKG ---
Test Reason : Blood Pressure : / mmHG Vent. Rate : 091 BPM Atrial Rate : 091 BPM P-R Int : 168 ms QRS Dur : 150 ms QT Int : 406 ms P-R-T Axes : 063 035 021 degrees QTc Int : 499 ms POOR DATA QUALITY, INTERPRETATION MAY BE ADVERSELY AFFECTED SINUS RHYTHM WITH PREMATURE ATRIAL COMPLEXES RIGHT BUNDLE BRANCH BLOCK ABNORMAL ECG Confirmed by RASTA BERUMEN MD ([id number]) on 07/08/2016 12:24:47 PM Referred By: Confirmed By:RASTA BERUMEN MD
== END 2016-07-08 04:04 ==
LOC: JER 14:15
PROC: 3E033GC Introduction of Other Therapeutic Substance into Peripheral Vein, Percutaneous Approach (ICD-10-PCS; principal; 2016-07-07)
DX: K59.09 Other constipation (principal); I25.10 Atherosclerotic heart disease of native coronary artery without angina pectoris; I13.0 Hypertensive heart and chronic kidney disease with heart failure and stage 1 through stage 4 chronic kidney disease, or unspecified chronic kidney disease; N18.3 Chronic kidney disease, stage 3 (moderate); I50.30 Unspecified diastolic (congestive) heart failure; Z95.5 Presence of coronary angioplasty implant and graft; J44.9 Chronic obstructive pulmonary disease, unspecified; Z99.81 Dependence on supplemental oxygen
CPT/HCPCS: 36415; 71010-TC; 74020-TC; 74176-TC; 80053; 81003; 82550; 84443; 84484; 85025; 85610; 93005; 93010; 96374; 99285-25; Q9967

== ENCOUNTER 2016-08-11 17:51 | Inpatient (IN) | payer OTHER ==
[2016-08-11] MEDS ORDERED: ALBUTEROL SO4 2.5/IPRATROPIUM 0.5 INH SOL 3 ML VIAL.NEB. NEB ONE ×3 (18:01→18:31)
--- NOTE | 2016-08-11 18:22 | PDOC ---
History of Present Illness - General History Source: Patient, Old Records Exam Limitations: No Limitations - History of Present Illness Initial Comments: 08/11/16 19:12 The patient is a 75 year old male brought via EMS, with a significant past medical history of mild GI bleed, gerd, BPH, LLE DVT, HTN, HLD, diabetes, CHF, COPD (resp. failure), TIA, anemia and CAD - 2 cardiac stents placed 03/26/2015, who presents to the emergency department with shortness of breath onset today. The patient had a 2 month stay in the hospital for COPD exacerbation, where he ended up getting intubated from 02/18/2016 to 04/13/2016. Since then he has been in the ED an additional 2 times for asthma exacerbation and was discharged same day. The patient denies chest pain, headache and dizziness. Denies fever, chills, nausea, vomit, diarrhea and constipation. Denies dysuria, frequency, urgency and hematuria. Allergies: None Past surgical history: Cardiac Stents (x2) Social history: No alcohol, tobacco or drug use reported PMD - Dr. Ceci Javed <Alin Garcia - Last Filed: 08/11/16 19:31> <Oscar Botello - Last Filed: 08/11/16 23:07> - General Chief Complaint: Shortness of Breath Stated Complaint: SOB Time Seen by Provider: 08/11/16 18:12 Past History <Alin Garcia - Last Filed: 08/11/16 19:31> - Past Medical History Anemia: Yes Asthma: No Cancer: No Cardiac Disorders: Yes (CAD - 2 cardiac stents placed 03/26/2015) CVA: Yes (tia) COPD: Yes (resp failure) CHF: Yes Dementia: No Diabetes: Yes GI Disorders: Yes (H/O mild GI bleed,gerd) Disorders: No HTN: Yes Hypercholesterolemia: Yes Liver Disease: No Seizures: No Thyroid Disease: No Other medical history: BPH, LLE DVT - Surgical History Abdominal Surgery: No Appendectomy: No Cardiac Surgery: Yes (2 cardiac stents) Cholecystectomy: No Lung Surgery: No Neurologic Surgery: No Orthopedic Surgery: No - Immunization History Immunization Up to Date: Yes - Psycho/Social/Smoking Cessation Hx Anxiety: No Suicidal Ideation: No Smoking Status: Yes Smoking History: Unknown if ever smoked Have you smoked in the past 12 months: No Number of Cigarettes Smoked Daily: 0 If you are a former smoker, when did you quit?: 6 years Information on smoking cessation initiated: No 'Breaking Loose' booklet given: 04/01/15 Hx Alcohol Use: No Drug/Substance Use Hx: No Substance Use Type: None Hx Substance Use Treatment: No <Oscar Botello - Last Filed: 08/11/16 23:07> - Past Medical History Allergies/Adverse Reactions: Allergies Allergy/AdvReac Type Severity Reaction Status Date / Time Penicillins Allergy Verified 08/11/16 17:58 Home Medications: Ambulatory Orders Aa/Hydrolyzed Collagen, Whey [Lps Neutral Flavor Liquid] 960 ml PO BID 08/11/16 Acetaminophen 650 mg PO Q6H PRN 08/11/16 Albuterol 2.5/Ipratropium 0.5 [Duoneb -] 1 neb IH TID 08/11/16 Amlodipine Besylate [Norvasc -] 10 mg PO DAILY 08/11/16 Apixaban [Eliquis] 2.5 mg PO BID 08/11/16 Aspirin [Aspirin EC] 81 mg PO DAILY 08/11/16 Bupropion HCl [Bupropion Xl] 150 mg PO DAILY 08/11/16 Docusate Sodium [Colace -] 100 mg PO BID 08/11/16 Duloxetine HCl 60 mg PO DAILY 08/11/16 Epoetin Keith [Epogen] 10,000 unit IM MOWEFR 08/11/16 Ferrous Sulfate 325 mg PO BID 08/11/16 Fluticasone/Vilanterol [Breo Ellipta 100-25 Mcg INH] 1 each IH DAILY 08/11/16 Guaifenesin [Mucinex] 600 mg PO Q12H 08/11/16 Levofloxacin [Levaquin] 250 mg PO DAILY 08/11/16 Mineral Oil/Hydrophil Petrolat [Aquaphor Healing Ointment] 50 gm TP BID Nystatin Powder [Nystop Topical Powder -] 60 gm TP DAILY 08/11/16 Pantoprazole Sodium [Protonix] 40 mg PO DAILY 08/11/16 Polyethylene Glycol 3350 [Miralax (For Daily Use) -] 17 gm PO DAILY 08/11/16 Prednisone 30 mg PO DAILY 08/11/16 Sennosides [Evac-U-Gen] 17.2 mg PO DAILY 08/11/16 Sodium Chloride Nasal [place] [[place] Nasal [place]] 2 spray NS Q12H PRN Tamsulosin HCl [Flomax] 0.4 mg PO DAILY 08/11/16 Torsemide 40 mg PO DAILY 08/11/16 Review of Systems - Review of Systems Able to Perform ROS?: Yes Comments:: 08/11/16 19:12 CONSTITUTIONAL: No fever, no chills, no fatigue EYES: No visual changes ENT: No ear pain, no sore throat CARDIOVASCULAR: No chest pain, no palpitations RESPIRATORY: (+) Shortness of breath. No cough GI: No abdominal pain, no nausea, no vomiting, no constipation, no diarrhea GENITOURINARY: No dysuria, no frequency, no hematuria MUSKULOSKELETAL: No backpain, no joint pain, no myalgias SKIN: No rash NEURO: No headache <Alin Garcia - Last Filed: 08/11/16 19:31> *Physical Exam - Vital Signs Last Vital Signs Temp Pulse Resp BP Pulse Ox 98.2 F 95 H 22 121/66 100 08/11/16 17:59 08/11/16 18:56 08/11/16 18:56 08/11/16 18:56 08/11/16 18:56 <Alin Garcia - Last Filed: 08/11/16 19:31> - Vital Signs Last Vital Signs Temp Pulse Resp BP Pulse Ox 98.2 F 108 H 33 H 128/69 84 L 08/11/16 17:59 08/11/16 17:59 08/11/16 17:59 08/11/16 17:59 08/11/16 17:59 - Physical Exam Comments: 08/11/16 19:37 EXAMINATION CONSTITUTIONAL: Awake, alert; morbidly [place]; tachypneic and dyspneic HEAD: Normocephalic; atraumatic EYES: PERRL; EOM intact ENMT: External appears normal; normal oropharynx NECK: Supple; non-tender; no jvd; no carotid bruits CARD: irregularly irregular; no murmurs, rubs, or gallops RESP: Patient is tachypneic and dyspneic; speaking in short phrases only; + mild crackles are noted at the right base; no audible breath sounds are appreciated to the bottom two thirds of the lung field on the left; ABD: Soft, non-distended; non-tender; no palpable organomegaly, no palpable hernias EXT: No edema; non-tender to palpation; distal pulses are decreased bilaterally SKIN: Warm, dry, + lichenification of the skin to the lower extremities bilaterally NEURO: ANO 3; moving all tremors symmetrically; gait-deferred. <Oscar Botello - Last Filed: 08/11/16 23:07> ED Treatment Course - LABORATORY CBC & Chemistry Diagram: 08/11/16 18:20 08/11/16 18:20 - ADDITIONAL ORDERS Additional order review: Laboratory Results 08/11/16 08/11/16 08/11/16 18:31 18:29 18:20 INR PTT (Actin FS) D-Dimer 502 H Puncture Site Md puncture ABG pH 7.42 ABG pCO2 at Pt Temp 50.4 H ABG pO2 at Pt Temp 28.1 L* D ABG HCO3 31.7 H ABG O2 Sat (Measured) 43.9 L* ABG O2 Content 4.9 L* ABG Base Excess 6.9 H Issac Test Not applicable Carboxyhemoglobin 1.5 Methemoglobin 0.9 O2 Delivery Device Bipap Oxygen Flow Rate 100 Vent Mode Ipap 15 Vent Rate 18 Pressure Support Vent Epap 7 Urine Color Urine Appearance Urine pH Urine Protein Urine Glucose (UA) Urine Ketones Urine Blood Urine Nitrite Urine Bilirubin Urine Urobilinogen Ur Leukocyte Esterase 08/11/16 08/11/16 18:20 16:55 INR 1.13 PTT (Actin FS) 31.6 D-Dimer Puncture Site ABG pH ABG pCO2 at Pt Temp ABG pO2 at Pt Temp ABG HCO3 ABG O2 Sat (Measured) ABG O2 Content ABG Base Excess Issac Test Carboxyhemoglobin Methemoglobin O2 Delivery Device Oxygen Flow Rate Vent Mode Vent Rate Pressure Support Vent Urine Color Straw Urine Appearance Clear Urine pH 5.0 Urine Protein Negative Urine Glucose (UA) Negative Urine Ketones Negative Urine Blood Negative Urine Nitrite Negative Urine Bilirubin Negative Urine Urobilinogen Negative Ur Leukocyte Esterase Negative 08/11/16 18:20 RBC 2.82 L D MCV 89.3 MCHC 32.0 RDW 18.8 H MPV 6.9 L Neutrophils % 90.2 H Lymphocytes % 5.0 L Monocytes % 4.1 Eosinophils % 0.5 Basophils % 0.2 - Medications Given in the ED: ED Medications Discontinued Medications Generic Name Dose Route Start Last Admin Trade Name Freq PRN Reason Stop Dose Admin Albuterol/Ipratropium 1 amp 08/11/16 18:12 08/11/16 18:00 Duoneb - NEB 08/11/16 18:13 1 amp NOW ONE Administration Albuterol/Ipratropium 1 amp 08/11/16 18:31 08/11/16 18:32 Duoneb - NEB 08/11/16 18:32 1 amp NOW ONE Administration Furosemide 80 mg 08/11/16 18:41 08/11/16 18:54 Lasix Injection - IVPUSH 08/11/16 18:42 80 mg ONCE ONE Administration <Alin Garcia - Last Filed: 08/11/16 19:31> - LABORATORY CBC & Chemistry Diagram: 08/11/16 18:20 08/11/16 18:20 - RADIOLOGY Radiology Studies Ordered: Category Date Time Status CHEST X-RAY PORTABLE* [RAD] Stat Radiology 08/11/16 18:10 Taken - Medications Given in the ED: ED Medications Discontinued Medications Generic Name Dose Route Start Last Admin Trade Name Freq PRN Reason Stop Dose Admin Albuterol/Ipratropium 1 amp 08/11/16 18:12 08/11/16 18:00 Duoneb - NEB 08/11/16 18:13 1 amp NOW ONE Administration <Oscar Botello - Last Filed: 08/11/16 23:07> Medical Decision Making - Medical Decision Making 08/11/16 19:31 Dr. Alejandro Richard was called regarding the patient at 6:47pm and 7:10pm Dr. Richard was consulted regarding the patient at 7:31pm [phone] <Alin Garcia - Last Filed: 08/11/16 19:31> - Medical Decision Making 08/11/16 21:26 Patient is a 75-year-old male with history of COPD, hypertension, CHF, DVT, BPH , CKI , currently being treated for respiratory infection with Levaquin-250 mg by mouth daily presents by EMS [facility] with acute respiratory distress associated with hypoxemia with oxygen saturation of 82% on Ventimask at 50% FiO2 and significantly decreased air entry on the left. Upon arrival, patient immediately placed on BiPAP, also receiving Combivent nebulizer therapy and IV Lasix-80 mg IV push. After being placed on BiPAP, patient's respiratory status stabilized. On FiO2 100% patient maintain oxygen saturation of 100%. Chest x-ray revealed cardiomegaly, with a large left-sided pleural effusion with possible infiltrates in addition to a small right-sided pleural effusion. CBC revealed no significant leukocytosis but moderate anemia with hematocrit of 25 was noted. CMP revealed elevated BUN/creatinine consistent with acute on chronic renal insufficiency. Initial troponin was negative. EKG showed atrial fibrillation with underlying RBBB and a rate of 105 without evidence of acute ischemia. Patient's d-dimer was noted to be elevated but is less then 10 times the age and PE is unlikely given the patient is currently on a course for DVT treatment. I also suspect there is an underlying infectious etiology contributing to the patient's overall deterioration and he will be treated with vancomycin-1500mg and imipenem-250mg for nosocomial pneumonia. Will also transfuse one unit of packed cells. I discussed the case with Dr. Sotomayor of pulmonology and his agreed with the plan of care. Patient will be placed in the ICU further evaluation and treatment. Will try to decrease FiO2 as patient's clinical status allows. <Oscar Botello - Last Filed: 08/11/16 23:07> *DC/Admit/Observation/Transfer - Attestations Scribe Attestion: 08/11/16 19:13 Documentation prepared by Alin Garcia, acting as medical office technology instructor for Oscar Botello MD <Alin Garcia - Last Filed: 08/11/16 19:31> - Discharge Dispostion Admit: Yes - Attestations Physician Attestion: 08/11/16 19:32 The documentation was prepared by the scribe under my direct supervision. I have reviewed the documentation which correctly represents the findings, medical decision-making and critical action taken by me. <Oscar Botello - Last Filed: 08/11/16 23:07> Diagnosis at time of Disposition: Pleural effusion, Renal failure (ARF), acute on chronic Pneumonia Qualifiers: Pneumonia type: due to unspecified organism Laterality: left Lung location: lower lobe of lung Qualified Code(s): J18.1 - Lobar pneumonia, unspecified organism Anemia Qualifiers: Anemia type: unspecified type Qualified Code(s): D64.9 - Anemia, unspecified - Referrals
[2016-08-11 18:35] LABS: BASOPHIL 0.2 % (0-2.0); EOSINOPHIL 0.5 % (0-4.5); MCH 28.6 pg (25.7-33.7); MEAN CELL VOLUME 89.3 fl (80-96); MEAN PLT VOLUME 6.9 fl (7.5-11.1); NEUTROPHILS 90.2 % (42.8-82.8); PLATELET COUNT 217 K/MM3 (134-434); RDW 18.8 % (11.9-15.9); WHITE BLOOD COUNT 10.6 K/mm3 (4.0-10.0)
[2016-08-11] MEDS ORDERED: FUROSEMIDE 40 MG/4 ML INJECTABLE VIAL IVPUSH ONE (18:41)
[2016-08-11 18:43] LABS: METHEMOGLOBIN 0.9 % (0.4-1.5)
[2016-08-11 18:47] LABS: ARTERIAL BLD GAS O2 SATURATION 43.9 % (90-98.9); ARTERIAL BLOOD GAS BASE EXCESS 6.9 meq/l (-2-2); ARTERIAL BLOOD GAS HCO3 31.7 meq/L (22-26); ARTERIAL BLOOD GAS pH 7.42 (7.35-7.45)
[2016-08-11 18:48] LABS: PT. ON O2? YES; TYPE OF O2 BIPAP
[2016-08-11] MEDS ORDERED: FUROSEMIDE 40 MG/4 ML INJECTABLE VIAL ONE (18:48)
[2016-08-11 18:49] LABS: ARTERIAL BLOOD GAS PO2 28.1 mmHg (70-100); LPM/O2% 100; VENT RATE 18; VT/PRESS EPAP 7
[2016-08-11 18:52] LABS: INR 1.13 (0.82-1.09); PROTHROMBIN TIME (PATIENT) 12.5 SEC (9.98-11.88)
[2016-08-11 18:55] LABS: ACTIVATED PTT 31.6 SECONDS (26.9-34.4)
[2016-08-11 19:00] LABS: ALBUMIN 3.2 g/dl (3.4-5.0); ANION GAP 9 (8-16); CO2 33 mmol/L (21-32); COCKROFT - GAULT 42.01; CREATININE 2.2 mg/dL (0.7-1.3); GLUCOSE,RANDOM 157 mg/dL (74-106); SGOT/AST 13 U/L (15-37); SGPT/ALT 17 U/L (12-78)
[2016-08-11 19:00] LABS: URINE APPEARANCE CLEAR; URINE BILIRUBIN NEGATIVE (NEGATIVE); URINE BLOOD NEGATIVE (NEGATIVE); URINE COLOR STRAW; URINE GLUCOSE (UA) NEGATIVE (NEGATIVE); URINE KETONE NEGATIVE (NEGATIVE); URINE LEUK ESTERASE NEGATIVE (NEGATIVE); URINE NITRITE NEGATIVE (NEGATIVE); URINE PROTEIN NEGATIVE (NEGATIVE); URINE UROBILINOGEN NEGATIVE E.U./dl (0.2-1.0)
[2016-08-11 19:18] LABS: ALK PHOS 74 U/L (45-117); BILIRUBIN,TOTAL 0.4 mg/dL (0.2-1.0); CALCIUM 8.1 mg/dL (8.5-10.1); TROPONIN I < 0.02 ng/ml (0.00-0.05)
[2016-08-11] MEDS ORDERED: VANCOMYCIN 1,500 MG in DEXTROSE 5%-WATER - 500 ML IVPB ONE (19:33)
[2016-08-11] MEDS ORDERED: IMIPENEM/CILASTATIN SODIUM 250 MG in SODIUM CHLORIDE 100 ML IV ONE (19:34)
[2016-08-11] MEDS ORDERED: VANCOMYCIN 1 GRAM (PRE-DOCKED) 500 ML IVPB ONE (19:43)
--- NOTE | 2016-08-11 21:22 | HP ---
CHIEF COMPLAINT: shortness of breath PCP: Светлана HISTORY OF PRESENT ILLNESS: This is a 75 year old male with a significant past medical history of mild GI bleed, gerd, BPH, LLE DVT, HTN, HLD, DM, CHF, COPD ( resp. failure), TIA, anemia and CAD - 2 cardiac stents placed 03/26/2015, who presents for care with shortness of breath onset today. The patient had a 2 month stay in the hospital for COPD exacerbation, where he ended up getting intubated from 02/18/2016 to 04/13/2016. Since then he has been in the ED an additional 2 times for asthma exacerbation and was discharged same day. ER course was notable for: 1) Left pleural effusion 2) KARLOS 3) Anemia Recent Travel: denies PAST MEDICAL HISTORY: HTN, LLE DVT (on Eliquis), HLD, CHF, DM, COPD, TIA, anemia , CAD (stent x2 03/26/15), BPH, resp failure with ICU admit 02/18/16-04/13/16 PAST SURGICAL HISTORY: denies Social History: Smokin pack years quit in 2009 Alcohol: denies Drugs: denies Family History: Allergies Penicillins Allergy (Verified 08/11/16 17:58) HOME MEDICATIONS: Home Medications 3 Medication Instructions Recorded Aa/Hydrolyzed Collagen, Whey [Lps 960 ml PO BID 08/11/16 Neutral Flavor Liquid] Acetaminophen 650 mg PO Q6H PRN 08/11/16 Albuterol 2.5/Ipratropium 0.5 1 neb IH TID 08/11/16 [Duoneb -] Amlodipine Besylate [Norvasc -] 10 mg PO DAILY 08/11/16 Apixaban [Eliquis] 2.5 mg PO BID 08/11/16 Aspirin [Aspirin EC] 81 mg PO DAILY 08/11/16 Bupropion HCl [Bupropion Xl] 150 mg PO DAILY 08/11/16 Docusate Sodium [Colace -] 100 mg PO BID 08/11/16 Duloxetine HCl 60 mg PO DAILY 08/11/16 Epoetin Keith [Epogen] 10,000 unit IM MOWEFR 08/11/16 Ferrous Sulfate 325 mg PO BID 08/11/16 Fluticasone/Vilanterol [Breo 1 each IH DAILY 08/11/16 Ellipta 100-25 Mcg INH] Guaifenesin [Mucinex] 600 mg PO Q12H 08/11/16 Levofloxacin [Levaquin] 250 mg PO DAILY 08/11/16 Mineral Oil/Hydrophil Petrolat 50 gm TP BID 08/11/16 [Aquaphor Healing Ointment] Nystatin Powder [Nystop Topical 60 gm TP DAILY 08/11/16 Powder -] Pantoprazole Sodium [Protonix] 40 mg PO DAILY 08/11/16 Polyethylene Glycol 3350 [Miralax 17 gm PO DAILY 08/11/16 (For Daily Use) -] Prednisone 30 mg PO DAILY 08/11/16 Sennosides [Evac-U-Gen] 17.2 mg PO DAILY 08/11/16 Sodium Chloride Nasal [place] [[place] 2 spray NS Q12H PRN 08/11/16 [place] Nasal [place]] Tamsulosin HCl [Flomax] 0.4 mg PO DAILY 08/11/16 Torsemide 40 mg PO DAILY 08/11/16 REVIEW OF SYSTEMS CONSTITUTIONAL: Absent: fever, chills, diaphoresis, generalized weakness, malaise, loss of appetite, weight change HEENT: Absent: rhinorrhea, nasal congestion, throat pain, throat swelling, difficulty swallowing, mouth swelling, ear pain, eye pain, visual changes CARDIOVASCULAR: Absent: chest pain, syncope, palpitations, irregular heart rate, lightheadedness , bilateral peripheral edema RESPIRATORY: Absent: dyspnea with exertion, wheezing, stridor, hemoptysis productive cough for 1 week, shortness of breath, 4 pillow orthopnea GASTROINTESTINAL: Absent: abdominal pain, abdominal distension, nausea, vomiting, diarrhea, constipation, melena, hematochezia GENITOURINARY: Absent: dysuria, frequency, urgency, hesitancy, hematuria, flank pain, genital pain MUSCULOSKELETAL: Absent: myalgia, arthralgia, joint swelling, back pain, neck pain SKIN: Absent: rash, itching, pallor multiple ecchymoses over upper extremities HEMATOLOGIC/IMMUNOLOGIC: Absent: easy bleeding, lymphadenopathy, frequent infections multiple ecchymoses over upper extremities ENDOCRINE: Absent: unexplained weight gain, unexplained weight loss, heat intolerance, cold intolerance NEUROLOGIC: Absent: headache, focal weakness or paresthesias, dizziness, unsteady gait, seizure, mental status changes, bladder or bowel incontinence PSYCHIATRIC: Absent: anxiety, depression, suicidal or homicidal ideation, hallucinations. PHYSICAL EXAMINATION GENERAL: Awake, alert, and fully oriented, in no acute distress. HEAD: Normal with no signs of trauma. EYES: Pupils equal, round and reactive to light, extraocular movements intact, sclera anicteric, conjunctiva clear. No lid lag. EARS, NOSE, THROAT: Ears normal, nares patent, oropharynx clear without exudates. Moist mucous membranes. NECK: Normal range of motion, supple without lymphadenopathy, JVD, or masses. LUNGS: Breath sounds equal, coarse crackles noted bilateral bases. No wheezes. No accessory muscle use. Speaking in full sentences. HEART: Regular rate and rhythm, normal S1 and S2 without murmur, rub or gallop. ABDOMEN: Soft, nontender, not distended, normoactive bowel sounds, no guarding, no rebound, no masses. No hepatomegaly or splenomegaly. MUSCULOSKELETAL: Normal range of motion at all joints. No bony deformities or tenderness. No CVA tenderness. UPPER EXTREMITIES: 2+ pulses, warm, well-perfused. No cyanosis. No clubbing. No peripheral edema. Multiple ecchymoses present over BUE. LOWER EXTREMITIES: 2+ pulses, warm, well-perfused. No calf tenderness. 2+ peripheral edema in BLE. Venous stasis changes with cobblestoning of skin. NEUROLOGICAL: Cranial nerves II-XII intact. Normal speech. Normal gait. PSYCHIATRIC: Cooperative. Good eye contact. Appropriate mood and affect. SKIN: Warm, dry, normal turgor, no rashes or lesions noted, normal capillary refill. Laboratory Results - last 24 hr 3 08/11/16 08/11/16 08/11/16 16:55 18:20 18:20 WBC 10.6 H RBC 2.82 L D Hgb 8.1 L D Hct 25.2 L D MCV 89.3 MCHC 32.0 RDW 18.8 H Plt Count 217 MPV 6.9 L Neutrophils % 90.2 H Lymphocytes % 5.0 L Monocytes % 4.1 Eosinophils % 0.5 Basophils % 0.2 INR 1.13 PTT (Actin FS) 31.6 D-Dimer Puncture Site ABG pH ABG pCO2 at Pt Temp ABG pO2 at Pt Temp ABG HCO3 ABG O2 Sat (Measured) ABG O2 Content ABG Base Excess Issac Test Carboxyhemoglobin Methemoglobin O2 Delivery Device Oxygen Flow Rate Vent Mode Vent Rate Pressure Support Vent Sodium Potassium Chloride Carbon Dioxide Anion Gap BUN Creatinine Creat Clearance w eGFR Random Glucose Lactic Acid Calcium Total Bilirubin AST ALT Alkaline Phosphatase Creatine Kinase Troponin I B-Natriuretic Peptide Total Protein Albumin Urine Color Straw Urine Appearance Clear Urine pH 5.0 Urine Protein Negative Urine Glucose (UA) Negative Urine Ketones Negative Urine Blood Negative Urine Nitrite Negative Urine Bilirubin Negative Urine Urobilinogen Negative Ur Leukocyte Esterase Negative Blood Type Antibody Screen Crossmatch 3 08/11/16 08/11/16 08/11/16 18:20 18:20 18:29 WBC RBC Hgb Hct MCV MCHC RDW Plt Count MPV Neutrophils % Lymphocytes % Monocytes % Eosinophils % Basophils % INR PTT (Actin FS) D-Dimer 502 H Puncture Site Md puncture ABG pH 7.42 ABG pCO2 at Pt Temp 50.4 H ABG pO2 at Pt Temp 28.1 L* D ABG HCO3 31.7 H ABG O2 Sat (Measured) 43.9 L* ABG O2 Content 4.9 L* ABG Base Excess 6.9 H Issac Test Not applicable Carboxyhemoglobin Methemoglobin O2 Delivery Device Bipap Oxygen Flow Rate 100 Vent Mode Ipap 15 Vent Rate 18 Pressure Support Vent Epap 7 Sodium 144 Potassium 4.0 Chloride 102 Carbon Dioxide 33 H Anion Gap 9 BUN 42 H D Creatinine 2.2 H D Creat Clearance w eGFR 29.49 Random Glucose 157 H Lactic Acid Calcium 8.1 L Total Bilirubin 0.4 AST 13 L ALT 17 Alkaline Phosphatase 74 Creatine Kinase 28 L Troponin I < 0.02 B-Natriuretic Peptide 3058.57 H Total Protein 6.0 L Albumin 3.2 L Urine Color Urine Appearance Urine pH Urine Protein Urine Glucose (UA) Urine Ketones Urine Blood Urine Nitrite Urine Bilirubin Urine Urobilinogen Ur Leukocyte Esterase Blood Type Antibody Screen Crossmatch 3 08/11/16 08/11/16 08/11/16 18:31 18:40 19:01 WBC RBC Hgb Hct MCV MCHC RDW Plt Count MPV Neutrophils % Lymphocytes % Monocytes % Eosinophils % Basophils % INR PTT (Actin FS) D-Dimer Puncture Site ABG pH ABG pCO2 at Pt Temp ABG pO2 at Pt Temp ABG HCO3 ABG O2 Sat (Measured) ABG O2 Content ABG Base Excess Issac Test Carboxyhemoglobin 1.5 Methemoglobin 0.9 O2 Delivery Device Oxygen Flow Rate Vent Mode Vent Rate Pressure Support Vent Sodium Potassium Chloride Carbon Dioxide Anion Gap BUN Creatinine Creat Clearance w eGFR Random Glucose Lactic Acid 1.192 Calcium Total Bilirubin AST ALT Alkaline Phosphatase Creatine Kinase Troponin I B-Natriuretic Peptide Total Protein Albumin Urine Color Urine Appearance Urine pH Urine Protein Urine Glucose (UA) Urine Ketones Urine Blood Urine Nitrite Urine Bilirubin Urine Urobilinogen Ur Leukocyte Esterase Blood Type A POSITIVE Antibody Screen Negative Crossmatch See Detail ASSESSMENT/PLAN: A: This is a 75 year old male with a significant past medical history of mild GI bleed, gerd, BPH, LLE DVT, HTN, HLD, DM, CHF, COPD (resp. failure), TIA, anemia and CAD - 2 cardiac stents placed 03/26/2015, who presents for care with shortness of breath onset today. The patient had a 2 month stay in the hospital for COPD exacerbation, where he ended up getting intubated from 02/18/2016 to . CXR with large left pleural effusion. Echo done 05/16/16 shows EF of 57 % with normal anatomy. Multiple ecchymoses to upper extremities. P: Resp failure/COPD -continue Bipap and titrate per pulm -Lasix 80mg IV BID -prednisone 40mg -combivent nebs PRN -appreciate pulm consult HCAP -continue Vanc 1500mg IV BID -continue Imipenem 250mg IV q8h -sputum culture -appreciate pulm consult -consult Stephon CHF -likely diastolic given normal echo 05/16/16 -Lasix 80mg IV BID -Clifford -strict I&O's Anemia -hgb 8.1 upon arrival. likely chronic with baseline 8.0-10.0 -daily CBC -transfuse for Hgb<7.0 DVT -continue home Eliquis -OOB as tolerated HTN -continue home Norvasc DM -diet controlled -FS QACHS FEN -NPO on bipap -advance as tolerated -daily CMP replete PRN PPX -continue home PPI Dispo: Patient currently requires ICU level care. Patient is Full Code after discussion with patient and spouse. Visit type - Emergency Visit Emergency Visit: Yes ED Registration Date: 08/11/16 Care time: The patient presented to the Emergency Department on the above date and was hospitalized for further evaluation of their emergent condition. - New Patient This patient is new to me today: Yes Date on this admission: 08/12/16 - Critical Care Critical Care patient: Yes Total Critical Care Time (in minutes): 45 Critical Care Statement: The care of this patient involved high complexity decision making to prevent further life threatening deterioration of the patient 's condition and/or to evalute & treat vital organ system(s) failure or risk of failure.
[2016-08-11 21:44] VITALS: BMI 32.1
[2016-08-11] MEDS ORDERED: EPOETIN ALFA 10,000 UNIT/1 ML VIAL SQ SCH (21:45)
[2016-08-11] MEDS: MUPIROCIN 2% TOPICAL OINTMENT FOR DECOLONIZATION NS SCH (22:00)
[2016-08-11] MEDS: CHLORHEXIDINE GLUCONATE 4% CLEANSER FOR DECOLONIZATION TP SCH (22:00)
[2016-08-11] MEDS ORDERED: ACETAMINOPHEN 325 MG TABLET (FP) PO PRN (22:14)
--- NOTE | 2016-08-11 22:50 | CONSULT ---
Consult Consult Specialty:: PULM / CRITICAL CARE MEDICINE Referred by:: Dr Foster Reason for Consultation:: respiratory failure - History of Present Illness Chief Complaint: dyspnea History of Present Illness: 75 y/o male well known to us with COPD, CHF, DVT and PE in the past (on theraputic AC), AF, CAD w/stents, DM. He is a SNF resident and has frequent hospitalizations, has had many courses of critical care, has been intubated before. He had URI symptoms for about a week, [facility], he was actually due to complete the course today. He has had progressive SOB and then severe dyspnea today with productive cough. Of note, he has had several MRSA PNAs in the past and bacteremia. In the ED his SpO2 was in the 80s on NC, but improved greatly with NIPPV. CXR was significant for b/l effusions, but L is significantly larger, unclear if there is infiltrate or compression atelectasis in the retrocardiac space. He was hemodynamically stable , Cr 2.2 from 1.5 baseline (he has CKD), lactate was normal. VBG showed adequate ventilation and his SpO2 was in the high 90s on 50% FiO2 via NIPPV. He was cultured, given Vancomycin and admitted to the ICU for hypoxic respiratory failure. - History Source History Provided By: Patient, Medical Record Limitations to Obtaining History: No Limitations - Past Medical History [employer]: Yes: Peripheral Neuropathy Cardio/Vascular: Yes: CAD, CHF (diastolic), HTN, Hyperlipdemia Pulmonary: Yes: COPD, O2 Dependent, Sleep Apnea Renal/: Yes: Renal Inusuff, Renal Calculi Dermatology: Yes: Cellulitis (Cellulitis lower extremiites during patient's hospitalization in February) Additional Medical History: Obesity - Past Surgical History Past Surgical History: Yes: None - Alcohol/Substance Use Hx Alcohol Use: No History of Substance Use: reports: None - Smoking History Smoking history: Former smoker Have you smoked in the past 12 months: No Aproximately how many cigarettes per day: 0 If you are a former smoker, when did you quit?: 6 years - Social History ADL: Independent 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 History of Recent Travel: No Home Medications - Allergies Allergies/Adverse Reactions: Allergies Allergy/AdvReac Type Severity Reaction Status Date / Time Penicillins Allergy Verified 08/11/16 17:58 - Home Medications Home Medications: Ambulatory Orders Aa/Hydrolyzed Collagen, Whey [Lps Neutral Flavor Liquid] 960 ml PO BID 08/11/16 Acetaminophen 650 mg PO Q6H PRN 08/11/16 Albuterol 2.5/Ipratropium 0.5 [Duoneb -] 1 neb IH TID 08/11/16 Amlodipine Besylate [Norvasc -] 10 mg PO DAILY 08/11/16 Apixaban [Eliquis] 2.5 mg PO BID 08/11/16 Aspirin [Aspirin EC] 81 mg PO DAILY 08/11/16 Bupropion HCl [Bupropion Xl] 150 mg PO DAILY 08/11/16 Docusate Sodium [Colace -] 100 mg PO BID 08/11/16 Duloxetine HCl 60 mg PO DAILY 08/11/16 Epoetin Keith [Epogen] 10,000 unit IM MOWEFR 08/11/16 Ferrous Sulfate 325 mg PO BID 08/11/16 Fluticasone/Vilanterol [Breo Ellipta 100-25 Mcg INH] 1 each IH DAILY 08/11/16 Guaifenesin [Mucinex] 600 mg PO Q12H 08/11/16 Levofloxacin [Levaquin] 250 mg PO DAILY 08/11/16 Mineral Oil/Hydrophil Petrolat [Aquaphor Healing Ointment] 50 gm TP BID Nystatin Powder [Nystop Topical Powder -] 60 gm TP DAILY 08/11/16 Pantoprazole Sodium [Protonix] 40 mg PO DAILY 08/11/16 Polyethylene Glycol 3350 [Miralax (For Daily Use) -] 17 gm PO DAILY 08/11/16 Prednisone 30 mg PO DAILY 08/11/16 Sennosides [Evac-U-Gen] 17.2 mg PO DAILY 08/11/16 Sodium Chloride Nasal [place] [[place] Nasal [place]] 2 spray NS Q12H PRN Tamsulosin HCl [Flomax] 0.4 mg PO DAILY 08/11/16 Torsemide 40 mg PO DAILY 08/11/16 Family Disease History - Family Disease History Family Disease History: Other: Father (parkinson's disease) Review of Systems - Review of Systems Constitutional: reports: Malaise. denies: Chills, Fever, Night Sweats Eyes: reports: No Symptoms HENT: reports: No Symptoms Neck: reports: No Symptoms Cardiovascular: reports: Shortness of Breath Respiratory: reports: Exercise Intolerance, Orthopnea, SOB, SOB on Exertion, Wheezing Gastrointestinal: reports: No Symptoms Genitourinary: reports: No Symptoms Neurological: reports: No Symptoms Hematology/Lymphatic: reports: No Symptoms Psychiatric: reports: No Symptoms Physical Exam Vital Signs: Vital Signs Temperature 97.2 F L 08/11/16 21:32 Pulse Rate 116 H 08/11/16 21:32 Respiratory Rate 26 H 08/11/16 21:32 Blood Pressure 136/87 08/11/16 21:32 O2 Sat by Pulse Oximetry (%) 93 L 08/11/16 21:32 Constitutional: Yes: Mild Distress, Obese Eyes: Yes: WNL HENT: Yes: WNL Neck: Yes: WNL Cardiovascular: Yes: Tachycardia, Pulse Irregular Respiratory: Yes: On BiPap, Orthopnea, Rales, SOB on Exertion, Tachypnea, Wheezes Gastrointestinal: Yes: Soft, Abdomen, Obese Extremities: Yes: Cool Edema: Yes Edema: LLE: 1+, RLE: 1+ Peripheral Pulses WNL: Yes Integumentary: Yes: WNL Neurological: Yes: WNL ...Motor Strength: WNL Labs: CBC, BMP 08/11/16 18:20 08/11/16 18:20 Imaging - Results Chest X-ray: Image Reviewed EKG: Image Reviewed Problem List - Problems (1) Acute and chronic respiratory failure with hypoxia Code(s): J96.21 - ACUTE AND CHRONIC RESPIRATORY FAILURE WITH HYPOXIA (2) Pneumonia Code(s): J18.9 - PNEUMONIA, UNSPECIFIED ORGANISM Qualifiers: Pneumonia type: due to unspecified organism Laterality: left Lung location: lower lobe of lung Qualified Code(s): J18.1 - Lobar pneumonia, unspecified organism (3) Pleural effusion Code(s): J90 - PLEURAL EFFUSION, NOT ELSEWHERE CLASSIFIED (4) Acute on chronic diastolic (congestive) heart failure Code(s): I50.33 - ACUTE ON CHRONIC DIASTOLIC (CONGESTIVE) HEART FAILURE (5) COPD (chronic obstructive pulmonary disease) Code(s): J44.9 - CHRONIC OBSTRUCTIVE PULMONARY DISEASE, UNSPECIFIED (6) Renal failure (ARF), acute on chronic Code(s): N17.9 - ACUTE KIDNEY FAILURE, UNSPECIFIED N18.9 - CHRONIC KIDNEY DISEASE, UNSPECIFIED (7) Diabetes Code(s): E11.9 - TYPE 2 DIABETES MELLITUS WITHOUT COMPLICATIONS Qualifiers: Diabetes mellitus type: type 2 Diabetes mellitus complication status: with kidney complications Diabetes mellitus complication detail: with chronic kidney disease (8) Atrial fibrillation Code(s): I48.91 - UNSPECIFIED ATRIAL FIBRILLATION Assessment/Plan -Continue NIPPV -Will tap this large L side effusion and send for studies -More diuresis -Abx - Vanc/Zosyn is reasonable - doesn't need Azithro for atypical coverage as he just completed 9 days of LVQ -Nebs -Short course of steroids (Pred is ok) -Rate control -Continue anticoagulation -Glucose control -OOB to chair as able -Continue home meds as appropriate -GI PPx Monitor in ICU Critically Ill 50min CCT not including procedures Thank you for this interesting consult Miguel Pinedo Pulm/Critical Care CINETECHNICIAN
[2016-08-11] MEDS ORDERED: LIDOCAINE 1%/EPI 1:100000 (20 ML MULTI DOSE VIAL) IJ ONE (23:07)
[2016-08-11] MEDS ORDERED: LIDOCAINE HCL 1%, 10 MG/ML (20ML VIAL) ONE (23:18)
[2016-08-11] MEDS: ALBUTEROL SO4 2.5/IPRATROPIUM 0.5 INH SOL 3 ML VIAL.NEB. NEB SCH (23:18)
--- NOTE | 2016-08-11 23:50 | PN ---
Progress Note (short form) - Note Progress Note: Case discussed with ER, Dr. Cassidy: pneumonia, acute on chronic respiratory failure: admit pt to hosptalist service and transfer to ICU.
--- NOTE | 2016-08-12 00:19 | PROC ---
Chest Tube Insertion Risks and Benefits Explained: Yes Chest tube #1 Indication: Pleural Effusion Chest Tube Location: Left Lateral Anesthesia: 1% Lidocaine Size (Fr.): 8 Sterile Technique: Yes Tube Sutured to Skin: Yes Vaseline gauze dressing: No Chest Tube Collection System: Pleur-Evac Suction: Yes Drainage, Color/Appearance: Serous, Straw, Cloudy Amount (ml): 500
[2016-08-12 01:05] LABS: TROPONIN I < 0.02 ng/ml (0.00-0.05)
[2016-08-12] MEDS: DOCUSATE SODIUM 100 MG CAPSULE (FP) PO SCH ×3 (01:26→22:36)
[2016-08-12] MEDS: APIXABAN 2.5 MG TABLET PO SCH ×3 (01:26→22:42)
[2016-08-12 03:20] LABS: PLEURAL FLUID APPEARANCE CLOUDY; PLEURAL FLUID COLOR YELLOW
[2016-08-12 03:21] LABS: PLEURAL FLUID LYMPHOCYTES 51 %; PLEURAL FLUID MACROPHAGES 27 %; PLEURAL FLUID NEUTROPHIL 10 %
[2016-08-12] MEDS: ALBUTEROL SO4 2.5/IPRATROPIUM 0.5 INH SOL 3 ML VIAL.NEB. NEB SCH ×4 (05:56→23:46)
[2016-08-12 06:21] LABS: BASOPHIL 0.1 % (0-2.0); MCHC 33.2 g/dl (32.0-35.9); MEAN CELL VOLUME 87.5 fl (80-96); MEAN PLT VOLUME 7.1 fl (7.5-11.1); NEUTROPHILS 90.4 % (42.8-82.8); PLATELET COUNT 187 K/MM3 (134-434); RDW 17.9 % (11.9-15.9); WHITE BLOOD COUNT 8.5 K/mm3 (4.0-10.0)
[2016-08-12 06:34] LABS: ALBUMIN 2.7 g/dl (3.4-5.0); CALCIUM 7.9 mg/dL (8.5-10.1)
[2016-08-12 06:36] LABS: BILIRUBIN,TOTAL 0.5 mg/dL (0.2-1.0); TOT PROT 5.3 g/dl (6.4-8.2)
--- NOTE | 2016-08-12 07:20 | PN ---
Progress Note (short form) - Note Progress Note: PULM / CRITICAL CARE PROGRESS NOTE: Pt seen and examined in the ICU 24 HOUR EVENTS: -Admitted to the ICU on NIPPV -L pleural pigtail placed - 1L output overnight -Transudative, simple effusion -Weaned from NIPPV to 50% venti-mask Current Medications Acetaminophen (Tylenol -) 650 mg PO Q6H PRN PRN Reason: PAIN Albuterol/Ipratropium (Duoneb -) 1 amp NEB QIDR [facility] Last Admin: 08/12/16 05:56 Dose: 1 amp Amlodipine Besylate (Norvasc -) 10 mg PO DAILY [facility] Apixaban (Eliquis -) 2.5 mg PO BID [facility] Last Admin: 08/12/16 01:26 Dose: Not Given Aspirin (Ecotrin -) 81 mg PO DAILY [facility] Bupropion HCl (Wellbutrin Xl -) 150 mg PO DAILY [facility] Chlorhexidine Gluconate (Hibiclens For Decolonization -) 1 applic TP HS [facility] Last Admin: 08/11/16 22:00 Dose: 1 applic Docusate Sodium (Colace -) 100 mg PO BID [facility] Last Admin: 08/12/16 01:26 Dose: Not Given Duloxetine HCl (Cymbalta -) 60 mg PO DAILY [facility] Emollient Ointment (Aquaphor -) 1 applic TP BID [facility] Epoetin Keith (Procrit -) 10,000 unit SQ MOWEFR [facility] Last Admin: 08/12/16 01:25 Dose: Not Given Ferrous Sulfate (Feosol -) 325 mg PO BID [facility] Furosemide (Lasix Injection -) 80 mg IVPUSH BID@0600,1400 [facility] Imipenem/Cilastatin Sodium 250 (mg/ Sodium Chloride) 100 mls @ 100 mls/hr IVPB Q6H-IV LESLEE PRN Reason: Protocol Mupirocin (Bactroban Ointment (For Decolonization) -) 1 applic NS BID [facility] Stop: 08/16/16 21:59 Last Admin: 08/11/16 22:00 Dose: 1 applic Non-Formulary Medication (Fluticasone/Vilanterol [Breo Ellipta 100-25 Mcg Inh]) 1 each IH DAILY [facility] Nystatin (Nystop Powder -) 1 applic TP DAILY [facility] Pantoprazole Sodium (Protonix -) 40 mg PO DAILY [facility] Prednisone (Deltasone -) 40 mg PO DAILY [facility] Senna (Senna -) 2 tab PO DAILY [facility] Tamsulosin HCl (Flomax -) 0.4 mg PO DAILY@0830 [facility] Vital Signs Temp 97.5 F L 08/12/16 02:16 Pulse 93 H 08/12/16 04:00 Resp 26 H 08/12/16 04:00 BP 133/66 08/12/16 04:00 Pulse Ox 100 08/12/16 03:44 Intake & Output 08/11/16 08/12/16 08/12/16 18:59 06:59 18:59 Intake Total 475 Output Total 300 1100 Balance -300 -625 Weight 99.337 kg 101.5 kg Intake: IVPB 475 Oral 0 Output: Urine 300 1100 Clifford 300 1100 Other: Voiding Method Indwelling Catheter Height 5 ft 11 in 5 ft 10 in Body Mass Index (BMI) 30.5 32.1 Weight Measurement Method Built in [facility] Weight Measurement Method Est/Stated by Patient EXAM: Neuro: alert HEENT: PERRL Lungs: bibasular crackles, no wheezing; L CT on -20, serous drainage, no air leak Heart: irregular Abd: obese, soft, non-tender Ext: edema, chronic vascular changes in LEs Skin: warm, dry CBC, BMP 08/12/16 05:20 08/12/16 05:20 MICROBIOLOGY: cultures pending Imaging - Results Chest X-ray: Image Reviewed - rexpanded L lung, moderate R pleural effusion EKG: Image Reviewed Problem List - Problems (1) Acute and chronic respiratory failure with hypoxia Code(s): J96.21 - ACUTE AND CHRONIC RESPIRATORY FAILURE WITH HYPOXIA (2) Pneumonia Code(s): J18.9 - PNEUMONIA, UNSPECIFIED ORGANISM Qualifiers: Pneumonia type: due to unspecified organism Laterality: left Lung location: lower lobe of lung Qualified Code(s): J18.1 - Lobar pneumonia, unspecified organism (3) Pleural effusion Code(s): J90 - PLEURAL EFFUSION, NOT ELSEWHERE CLASSIFIED (4) Acute on chronic diastolic (congestive) heart failure Code(s): I50.33 - ACUTE ON CHRONIC DIASTOLIC (CONGESTIVE) HEART FAILURE (5) COPD (chronic obstructive pulmonary disease) Code(s): J44.9 - CHRONIC OBSTRUCTIVE PULMONARY DISEASE, UNSPECIFIED (6) Renal failure (ARF), acute on chronic Code(s): N17.9 - ACUTE KIDNEY FAILURE, UNSPECIFIED N18.9 - CHRONIC KIDNEY DISEASE, UNSPECIFIED (7) Diabetes Code(s): E11.9 - TYPE 2 DIABETES MELLITUS WITHOUT COMPLICATIONS Qualifiers: Diabetes mellitus type: type 2 Diabetes mellitus complication status: with kidney complications Diabetes mellitus complication detail: with chronic kidney disease (8) Atrial fibrillation Code(s): I48.91 - UNSPECIFIED ATRIAL FIBRILLATION Assessment/Plan -On 50% venti-mask which is his baseline -Continue L pleural pigtail - will remove in the coming day(s) -Continue diuresis - suspect that his hypoxia was largely volume related -Abx per ID - has h/o MRSA -Nebs -Short course of steroids (Pred is ok) -Rate control -Continue anticoagulation -Glucose control -OOB to chair as able -Continue home meds as appropriate -GI PPx If stable on venti-mask can go to the floor later today or tomorrow. Continue ICU for now Critically Ill 35min CCT Miguel Pinedo Pulm/Critical Care [employer] Problem List - Problems (1) Acute and chronic respiratory failure with hypoxia Code(s): J96.21 - ACUTE AND CHRONIC RESPIRATORY FAILURE WITH HYPOXIA (2) Pneumonia Code(s): J18.9 - PNEUMONIA, UNSPECIFIED ORGANISM Qualifiers: Pneumonia type: due to unspecified organism Laterality: left Lung location: lower lobe of lung Qualified Code(s): J18.1 - Lobar pneumonia, unspecified organism (3) Pleural effusion Code(s): J90 - PLEURAL EFFUSION, NOT ELSEWHERE CLASSIFIED (4) Acute on chronic diastolic (congestive) heart failure Code(s): I50.33 - ACUTE ON CHRONIC DIASTOLIC (CONGESTIVE) HEART FAILURE (5) COPD (chronic obstructive pulmonary disease) Code(s): J44.9 - CHRONIC OBSTRUCTIVE PULMONARY DISEASE, UNSPECIFIED (6) Renal failure (ARF), acute on chronic Code(s): N17.9 - ACUTE KIDNEY FAILURE, UNSPECIFIED N18.9 - CHRONIC KIDNEY DISEASE, UNSPECIFIED (7) Diabetes Code(s): E11.9 - TYPE 2 DIABETES MELLITUS WITHOUT COMPLICATIONS Qualifiers: Diabetes mellitus type: type 2 Diabetes mellitus complication status: with kidney complications Diabetes mellitus complication detail: with chronic kidney disease (8) Atrial fibrillation Code(s): I48.91 - UNSPECIFIED ATRIAL FIBRILLATION
[2016-08-12] MEDS: FUROSEMIDE 100 MG/10 ML INJECTABLE VIAL IVPUSH SCH ×2 (07:43→13:07)
[2016-08-12] MEDS ORDERED: EPOETIN ALFA 10,000 UNIT/1 ML VIAL SQ SCH (08:26)
[2016-08-12] MEDS ORDERED: PT OWN MED DRAWER 7, Y5N ONE ×2 (08:59→22:27)
[2016-08-12 09:00] LABS: PLEURAL FLUID SOURCE PLEURAL
[2016-08-12] MEDS: TAMSULOSIN HCL 0.4 MG CAP.ER.24H (FP) PO SCH (09:00)
[2016-08-12] MEDS ORDERED: WATER IVPB ONE (09:00)
[2016-08-12] MEDS ORDERED: DEXTROSE 5% IVPB ONE (09:00)
[2016-08-12] MEDS ORDERED: IMIPENEM IVPB ONE (09:00)
[2016-08-12] MEDS ORDERED: CILASTATIN SODIUM IVPB ONE (09:00)
[2016-08-12] MEDS ORDERED: IMIPENEM/CILASTATIN SODIUM 250 MG in SODIUM CHLORIDE 100 ML IVPB SCH (09:00)
[2016-08-12] MEDS: MINERAL OIL/PET HY-PHL TOPICAL OINTMENT 454 GM JAR TP SCH ×2 (09:01→22:35)
[2016-08-12] MEDS: MUPIROCIN 2% TOPICAL OINTMENT FOR DECOLONIZATION NS SCH ×2 (09:02→22:35)
[2016-08-12] MEDS: NYSTATIN POWDER 100,000 UNITS/GM - 15 GM TOPICAL POWDER TP SCH (09:03)
[2016-08-12] MEDS: EPOETIN ALFA 10,000 UNIT/1 ML VIAL SQ SCH (09:04)
[2016-08-12] MEDS: DULoxetine HCL 30 MG CAPSULE.DR (FP) PO SCH (09:11)
[2016-08-12] MEDS: predniSONE 20 MG TABLET (UD) PO SCH (09:11)
[2016-08-12] MEDS: FERROUS SO4 325 MG TABLET (FP) PO SCH ×2 (09:11→22:46)
[2016-08-12] MEDS: amLODIPine BESYLATE 10 MG TABLET (FP) PO SCH (09:11)
[2016-08-12] MEDS: SENNOSIDES 8.6MG TABLET (FP) PO SCH (09:11)
[2016-08-12] MEDS: ASPIRIN COATED 81 MG TABLET.EC PO SCH (09:11)
[2016-08-12] MEDS: PANTOPRAZOLE 40 MG TABLET (FP) PO SCH (09:13)
[2016-08-12] MEDS ORDERED: IMIPENEM/CILASTATIN SODIUM 250 MG in SODIUM CHLORIDE 100 ML IVPB ONE (09:13)
--- NOTE | 2016-08-12 09:44 | PN ---
Progress Note, Physician Chief Complaint: Pt. A&Ox3; c/o pain at chest tube site. History of Present Illness: The patient is a 75 year old male brought via EMS, with a significant past medical history of mild GI bleed, gerd, BPH, LLE DVT, HTN, HLD, diabetes, CHF, COPD (resp. failure), TIA, anemia and CAD - 2 cardiac stents placed 03/26/2015, who presents to the emergency department with shortness of breath onset today. The patient had a 2 month stay in the hospital for COPD exacerbation, where he ended up getting intubated from 02/18/2016 to 04/13/2016. Since then he has been in the ED an additional 2 times for asthma exacerbation and was discharged same day. The patient denies chest pain, headache and dizziness. Denies fever, chills, nausea, vomit, diarrhea and constipation. Denies dysuria, frequency, urgency and hematuria. Allergies: None Past surgical history: Cardiac Stents (x2) Social history: No alcohol, tobacco or drug use reported PMD - Dr. Ceci Javed - Current Medication List Current Medications: Active Medications Acetaminophen (Tylenol -) 650 mg PO Q6H PRN PRN Reason: PAIN Albuterol/Ipratropium (Duoneb -) 1 amp NEB QIDR [facility] Last Admin: 08/12/16 05:56 Dose: 1 amp Amlodipine Besylate (Norvasc -) 10 mg PO DAILY [facility] Last Admin: 08/12/16 09:11 Dose: 10 mg Apixaban (Eliquis -) 2.5 mg PO BID [facility] Last Admin: 08/12/16 09:05 Dose: 2.5 mg Aspirin (Ecotrin -) 81 mg PO DAILY [facility] Last Admin: 08/12/16 09:11 Dose: 81 mg Bupropion HCl (Wellbutrin Xl -) 150 mg PO DAILY [facility] Last Admin: 08/12/16 09:03 Dose: 150 mg Chlorhexidine Gluconate (Hibiclens For Decolonization -) 1 applic TP HS [facility] Last Admin: 08/11/16 22:00 Dose: 1 applic Docusate Sodium (Colace -) 100 mg PO BID [facility] Last Admin: 08/12/16 09:02 Dose: 100 mg Duloxetine HCl (Cymbalta -) 60 mg PO DAILY [facility] Last Admin: 08/12/16 09:11 Dose: 60 mg Emollient Ointment (Aquaphor -) 1 applic TP BID [facility] Last Admin: 08/12/16 09:01 Dose: 1 applic Epoetin Keith (Procrit -) 10,000 unit SQ MoWeFr@1000 [facility] Last Admin: 08/12/16 09:04 Dose: Not Given Ferrous Sulfate (Feosol -) 325 mg PO BID [facility] Last Admin: 08/12/16 09:11 Dose: 325 mg Furosemide (Lasix Injection -) 80 mg IVPUSH BID@0600,1400 [facility] Last Admin: 08/12/16 07:43 Dose: 80 mg Imipenem/Cilastatin Sodium 250 (mg/ Sodium Chloride) 100 mls @ 100 mls/hr IVPB Q6H-IV [facility] PRN Reason: Protocol Mupirocin (Bactroban Ointment (For Decolonization) -) 1 applic NS BID [facility] Stop: 08/16/16 21:59 Last Admin: 08/12/16 09:02 Dose: 1 applic Non-Formulary Medication (Fluticasone/Vilanterol [Breo Ellipta 100-25 Mcg Inh]) 1 each IH DAILY [facility] Nystatin (Nystop Powder -) 1 applic TP DAILY [facility] Last Admin: 08/12/16 09:03 Dose: 1 applic Pantoprazole Sodium (Protonix -) 40 mg PO DAILY [facility] Last Admin: 08/12/16 09:13 Dose: 40 mg Prednisone (Deltasone -) 40 mg PO DAILY [facility] Last Admin: 08/12/16 09:11 Dose: 40 mg Senna (Senna -) 2 tab PO DAILY [facility] Last Admin: 08/12/16 09:11 Dose: 2 tab Tamsulosin HCl (Flomax -) 0.4 mg PO DAILY@0830 [facility] Last Admin: 08/12/16 09:00 Dose: 0.4 mg - Objective Vital Signs: Vital Signs Temperature 97.5 F L 08/12/16 02:16 Pulse Rate 92 H 08/12/16 08:00 Respiratory Rate 26 H 08/12/16 08:00 Blood Pressure 135/73 08/12/16 08:00 O2 Sat by Pulse Oximetry (%) 96 08/12/16 08:00 Labs: CBC, BMP 08/12/16 05:20 08/12/16 05:20 INR, PTT INR 1.13 (0.82-1.09) 08/11/16 18:20 Problem List - Problems (1) Acute and chronic respiratory failure with hypoxia Code(s): J96.21 - ACUTE AND CHRONIC RESPIRATORY FAILURE WITH HYPOXIA (2) Atrial fibrillation Assessment/Plan: Start AV conduction regine if needed for HR control. On apixaban for anticoagulation. Code(s): I48.91 - UNSPECIFIED ATRIAL FIBRILLATION (3) Pneumonia Assessment/Plan: antibiotics per ID. s/p chest tube insertion. Code(s): J18.9 - PNEUMONIA, UNSPECIFIED ORGANISM Qualifiers: Pneumonia type: due to unspecified organism Laterality: left Lung location: lower lobe of lung Qualified Code(s): J18.1 - Lobar pneumonia, unspecified organism (4) Renal failure (ARF), acute on chronic Code(s): N17.9 - ACUTE KIDNEY FAILURE, UNSPECIFIED N18.9 - CHRONIC KIDNEY DISEASE, UNSPECIFIED (5) Anemia Code(s): D64.9 - ANEMIA, UNSPECIFIED Qualifiers: Anemia type: unspecified type Qualified Code(s): D64.9 - Anemia, unspecified (6) Acute on chronic diastolic (congestive) heart failure Code(s): I50.33 - ACUTE ON CHRONIC DIASTOLIC (CONGESTIVE) HEART FAILURE (7) COPD (chronic obstructive pulmonary disease) Code(s): J44.9 - CHRONIC OBSTRUCTIVE PULMONARY DISEASE, UNSPECIFIED (8) Diabetes Code(s): E11.9 - TYPE 2 DIABETES MELLITUS WITHOUT COMPLICATIONS Qualifiers: Diabetes mellitus type: type 2 Diabetes mellitus complication status: with kidney complications Diabetes mellitus complication detail: with chronic kidney disease (9) Stage 1 skin ulcer of sacral region Code(s): L89.151 - PRESSURE ULCER OF SACRAL REGION, STAGE 1
[2016-08-12] MEDS ORDERED: predniSONE 10 MG TABLET (UD) PO SCH (10:00)
--- NOTE | 2016-08-12 10:00 | CON.CARD ---
Consult Consult Specialty:: cardiology Reason for Consultation:: shortness of breath; hx CAD; diastolic CHF - History of Present Illness History of Present Illness: The patient is a 75 year old white male brought via EMS, with a significant past medical history of mild GI bleed, gerd, BPH, LLE DVT, HTN, HLD, diabetes, diastolic CHF, COPD (resp. failure), TIA, anemia and CAD - 2 cardiac stents placed 03/26/2015, who presents to the emergency department with shortness of breath onset today. The patient had a 2 month stay in the hospital for COPD exacerbation, where he required being intubated from 02/18/2016 to 04/13/2016. Since then he has been in the ED an additional 2 times for asthma exacerbation and was discharged same day. The patient denies chest pain, headache and dizziness. Denies fever, chills, nausea, vomit, diarrhea and constipation. Denies dysuria, frequency, urgency and hematuria. Pt says he has not been walking for several months "because I've been in a hospital bed for so long". Allergies: None Past surgical history: Cardiac Stents (x2) Social history: No alcohol, tobacco or drug use reported PMD - Dr. 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 Cardio/Vascular: Yes: CAD, CHF (diastolic), HTN, Hyperlipdemia Pulmonary: Yes: COPD, O2 Dependent, Sleep Apnea Renal/: Yes: Renal Inusuff, Renal Calculi Heme/Onc: Yes: Anemia Psych: Yes: Anxiety Dermatology: Yes: Cellulitis (cellulitis during 02/2016 admission) Additional Medical History: Obesity - Past Surgical History Past Surgical History: Yes: Stent - Alcohol/Substance Use Hx Alcohol Use: No History of Substance Use: reports: None - Smoking History Smoking history: Unknown if ever smoked Have you smoked in the past 12 months: No Aproximately how many cigarettes per day: 0 If you are a former smoker, when did you quit?: 6 years - Social History ADL: Independent 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 History of Recent Travel: No Home Medications - Allergies Allergies/Adverse Reactions: Allergies Allergy/AdvReac Type Severity Reaction Status Date / Time Penicillins Allergy Verified 08/11/16 17:58 - Home Medications Home Medications: Ambulatory Orders Aa/Hydrolyzed Collagen, Whey [Lps Neutral Flavor Liquid] 960 ml PO BID 08/11/16 Acetaminophen 650 mg PO Q6H PRN 08/11/16 Albuterol 2.5/Ipratropium 0.5 [Duoneb -] 1 neb IH TID 08/11/16 Amlodipine Besylate [Norvasc -] 10 mg PO DAILY 08/11/16 Apixaban [Eliquis] 2.5 mg PO BID 08/11/16 Aspirin [Aspirin EC] 81 mg PO DAILY 08/11/16 Bupropion HCl [Bupropion Xl] 150 mg PO DAILY 08/11/16 Docusate Sodium [Colace -] 100 mg PO BID 08/11/16 Duloxetine HCl 60 mg PO DAILY 08/11/16 Epoetin Keith [Epogen] 10,000 unit IM MOWEFR 08/11/16 Ferrous Sulfate 325 mg PO BID 08/11/16 Fluticasone/Vilanterol [Breo Ellipta 100-25 Mcg INH] 1 each IH DAILY 08/11/16 Guaifenesin [Mucinex] 600 mg PO Q12H 08/11/16 Levofloxacin [Levaquin] 250 mg PO DAILY 08/11/16 Mineral Oil/Hydrophil Petrolat [Aquaphor Healing Ointment] 50 gm TP BID Nystatin Powder [Nystop Topical Powder -] 60 gm TP DAILY 08/11/16 Pantoprazole Sodium [Protonix] 40 mg PO DAILY 08/11/16 Polyethylene Glycol 3350 [Miralax (For Daily Use) -] 17 gm PO DAILY 08/11/16 Prednisone 30 mg PO DAILY 08/11/16 Sennosides [Evac-U-Gen] 17.2 mg PO DAILY 08/11/16 Sodium Chloride Nasal [place] [[place] Nasal [place]] 2 spray NS Q12H PRN Tamsulosin HCl [Flomax] 0.4 mg PO DAILY 08/11/16 Torsemide 40 mg PO DAILY 08/11/16 Family Disease History - Family Disease History Family Disease History: Other: Father (parkinson's disease) - Risk Factors Known Risk Factors: Yes: Age, Diabetes Mellitus, Gender, Hypercholesterolemia, Hypertension, Physical Inactivity Vital Signs: Vital Signs Temperature 97.5 F L 08/12/16 02:16 Pulse Rate 92 H 08/12/16 08:00 Respiratory Rate 26 H 08/12/16 08:00 Blood Pressure 135/73 08/12/16 08:00 O2 Sat by Pulse Oximetry (%) 96 08/12/16 08:00 Constitutional: Yes: Anxious Eyes: Yes: WNL HENT: Yes: WNL Neck: Yes: WNL Respiratory: Yes: Diminished Gastrointestinal: Yes: Soft Renal/: No: Anuria Cardiovascular: Yes: Pulse Irregular JVD: No Carotid Bruit: No PMI: Non-Displaced Heart Sounds: Yes: S1 (varies in intensity) Murmur: Yes: Systolic Murmur, Grade 1 Musculoskeletal: Yes: Muscle Weakness Extremities: Yes: Cool Edema: Yes Edema: LLE: 1+, RLE: 1+ Peripheral Pulses WNL: No Peripheral Pulses: 1+ Left Doralis Pedis, 1+ Right Dorsalis Pedis Integumentary: Yes: Venous Stasis Changes, Other (raised circular LE roughened nonweeping lesions) - Other Data Labs, Other Data: CBC, BMP 08/12/16 05:20 08/12/16 05:20 INR, PTT INR 1.13 (0.82-1.09) 08/11/16 18:20 Troponin, BNP 08/11/16 23:00 Troponin I < 0.02 Troponin, BNP 08/11/16 23:00 Troponin I < 0.02 Echo: Report Reviewed (normal LVEF) Ejection Fraction %: LVEF > or = 40 % Imaging - Results Chest X-ray: Image Reviewed (significant improvement in left pleural effusion; pigtail chest tube) EKG: Image Reviewed (initial EKG: NSR telemetry: AF) Problem List - Problems (1) Acute and chronic respiratory failure with hypoxia Assessment/Plan: feels better respiratory-ohara since drainage of one liter fluid via pigtail chest tube. Code(s): J96.21 - ACUTE AND CHRONIC RESPIRATORY FAILURE WITH HYPOXIA (2) Atrial fibrillation Assessment/Plan: Start AV conduction regine if needed for HR control. On apixaban for anticoagulation (?hx DVT/PE as initial reason for anticoagulation). Code(s): I48.91 - UNSPECIFIED ATRIAL FIBRILLATION (3) Pneumonia Assessment/Plan: antibiotics per ID. s/p chest tube insertion. Code(s): J18.9 - PNEUMONIA, UNSPECIFIED ORGANISM Qualifiers: Pneumonia type: due to unspecified organism Laterality: left Lung location: lower lobe of lung Qualified Code(s): J18.1 - Lobar pneumonia, unspecified organism (4) Renal failure (ARF), acute on chronic Code(s): N17.9 - ACUTE KIDNEY FAILURE, UNSPECIFIED N18.9 - CHRONIC KIDNEY DISEASE, UNSPECIFIED (5) Anemia Code(s): D64.9 - ANEMIA, UNSPECIFIED Qualifiers: Anemia type: unspecified type Qualified Code(s): D64.9 - Anemia, unspecified (6) Acute on chronic diastolic (congestive) heart failure Code(s): I50.33 - ACUTE ON CHRONIC DIASTOLIC (CONGESTIVE) HEART FAILURE (7) COPD (chronic obstructive pulmonary disease) Code(s): J44.9 - CHRONIC OBSTRUCTIVE PULMONARY DISEASE, UNSPECIFIED (8) Diabetes Code(s): E11.9 - TYPE 2 DIABETES MELLITUS WITHOUT COMPLICATIONS Qualifiers: Diabetes mellitus type: type 2 Diabetes mellitus complication status: with kidney complications Diabetes mellitus complication detail: with chronic kidney disease (9) Stage 1 skin ulcer of sacral region Code(s): L89.151 - PRESSURE ULCER OF SACRAL REGION, STAGE 1 Assessment/Plan CC time spent: 90 minutes
[2016-08-12] MEDS: morphine CARPU-JECT 2 MG/1 ML DISP.SYRIN IVPUSH PRN ×2 (10:10→22:46)
[2016-08-12] MEDS ORDERED: LORAZEPAM 40 MG in DEXTROSE 5%-WATER - 100 ML IVPB SCH (13:45)
--- NOTE | 2016-08-12 14:05 | CONSULT ---
Consult Consult Specialty:: infectious diseases Reason for Consultation:: sob - History of Present Illness Chief Complaint: sob History of Present Illness: This patient who is known to me extensively and who has been very sick before with multiple problems including fulminant cellulitits and mrsa pneumonia who underwent extensive treatment,was broguht back to the hospital because of sob cough and sputum production patient mentioned to me that he was absolutely not able to breathe currently he feels much better,but still with cough and sputum production - History Source History Provided By: Patient Limitations to Obtaining History: No Limitations - 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: Peripheral Neuropathy Cardio/Vascular: Yes: CAD, CHF (diastolic), HTN, Hyperlipdemia Pulmonary: Yes: COPD, O2 Dependent, Sleep Apnea Renal/: Yes: Renal Inusuff, Renal Calculi Psych: Yes: Anxiety Dermatology: Yes: Cellulitis (cellulitis during 02/2016 admission) Additional Medical History: Obesity - Past Surgical History Past Surgical History: Yes: Stent - Alcohol/Substance Use Hx Alcohol Use: No History of Substance Use: reports: None - Smoking History Smoking history: Unknown if ever smoked Have you smoked in the past 12 months: No Aproximately how many cigarettes per day: 0 If you are a former smoker, when did you quit?: 6 years - Social History ADL: Independent 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 History of Recent Travel: No Home Medications - Allergies Allergies/Adverse Reactions: Allergies Allergy/AdvReac Type Severity Reaction Status Date / Time Penicillins Allergy Verified 08/11/16 17:58 - Home Medications Home Medications: Ambulatory Orders Aa/Hydrolyzed Collagen, Whey [Lps Neutral Flavor Liquid] 960 ml PO BID 08/11/16 Acetaminophen 650 mg PO Q6H PRN 08/11/16 Albuterol 2.5/Ipratropium 0.5 [Duoneb -] 1 neb IH TID 08/11/16 Amlodipine Besylate [Norvasc -] 10 mg PO DAILY 08/11/16 Apixaban [Eliquis] 2.5 mg PO BID 08/11/16 Aspirin [Aspirin EC] 81 mg PO DAILY 08/11/16 Bupropion HCl [Bupropion Xl] 150 mg PO DAILY 08/11/16 Docusate Sodium [Colace -] 100 mg PO BID 08/11/16 Duloxetine HCl 60 mg PO DAILY 08/11/16 Epoetin Keith [Epogen] 10,000 unit IM MOWEFR 08/11/16 Ferrous Sulfate 325 mg PO BID 08/11/16 Fluticasone/Vilanterol [Breo Ellipta 100-25 Mcg INH] 1 each IH DAILY 08/11/16 Guaifenesin [Mucinex] 600 mg PO Q12H 08/11/16 Levofloxacin [Levaquin] 250 mg PO DAILY 08/11/16 Mineral Oil/Hydrophil Petrolat [Aquaphor Healing Ointment] 50 gm TP BID Nystatin Powder [Nystop Topical Powder -] 60 gm TP DAILY 08/11/16 Pantoprazole Sodium [Protonix] 40 mg PO DAILY 08/11/16 Polyethylene Glycol 3350 [Miralax (For Daily Use) -] 17 gm PO DAILY 08/11/16 Prednisone 30 mg PO DAILY 08/11/16 Sennosides [Evac-U-Gen] 17.2 mg PO DAILY 08/11/16 Sodium Chloride Nasal [place] [[place]al [place]] 2 spray NS Q12H PRN Tamsulosin HCl [Flomax] 0.4 mg PO DAILY 08/11/16 Torsemide 40 mg PO DAILY 08/11/16 Family Disease History - Family Disease History Family Disease History: Other: Father (parkinson's disease) Review of Systems - Review of Systems Constitutional: reports: No Symptoms Eyes: reports: No Symptoms HENT: reports: No Symptoms Neck: reports: No Symptoms Cardiovascular: reports: No Symptoms Respiratory: reports: Cough, SOB on Exertion, Other (sputum production) Gastrointestinal: reports: No Symptoms Musculoskeletal: reports: Muscle Pain, Other Integumentary: reports: Change in Color, Erythema Neurological: reports: No Symptoms Endocrine: reports: No Symptoms Hematology/Lymphatic: reports: No Symptoms Psychiatric: reports: No Symptoms Physical Exam Vital Signs: Vital Signs Temperature 98.2 F 08/12/16 13:40 Pulse Rate 92 H 08/12/16 13:40 Respiratory Rate 27 H 08/12/16 13:40 Blood Pressure 147/73 08/12/16 13:40 O2 Sat by Pulse Oximetry (%) 98 08/12/16 12:08 Constitutional: Yes: Mild Distress, Obese Eyes: Yes: Conjunctiva Clear Cardiovascular: Yes: Pulse Irregular, S1, S2 Respiratory: Yes: On BiPap, On Nasal O2, Poor Air Entry, Rhonchi, Other Gastrointestinal: Yes: Normal Bowel Sounds, Soft Musculoskeletal: Yes: Other Extremities: Yes: Other (redness and erythema of both legs) Edema: LLE: Trace, RLE: Trace Integumentary: Yes: Erythema, Venous Stasis Changes Neurological: Yes: Alert, Oriented Psychiatric: Yes: Alert, Oriented Labs: CBC, BMP 08/12/16 05:20 08/12/16 05:20 Imaging - Results Chest X-ray: Report Reviewed, Image Reviewed Assessment/Plan Problem List - Problems (1) Acute and chronic respiratory failure with hypoxia Code(s): J96.21 - ACUTE AND CHRONIC RESPIRATORY FAILURE WITH HYPOXIA (2) Pneumonia Code(s): J18.9 - PNEUMONIA, UNSPECIFIED ORGANISM Qualifiers: Pneumonia type: due to unspecified organism Laterality: left Lung location: lower lobe of lung Qualified Code(s): J18.1 - Lobar pneumonia, unspecified organism (3) Pleural effusion Code(s): J90 - PLEURAL EFFUSION, NOT ELSEWHERE CLASSIFIED (4) Acute on chronic diastolic (congestive) heart failure Code(s): I50.33 - ACUTE ON CHRONIC DIASTOLIC (CONGESTIVE) HEART FAILURE (5) COPD (chronic obstructive pulmonary disease) Code(s): J44.9 - CHRONIC OBSTRUCTIVE PULMONARY DISEASE, UNSPECIFIED (6) Renal failure (ARF), acute on chronic Code(s): N17.9 - ACUTE KIDNEY FAILURE, UNSPECIFIED N18.9 - CHRONIC KIDNEY DISEASE, UNSPECIFIED (7) Diabetes Code(s): E11.9 - TYPE 2 DIABETES MELLITUS WITHOUT COMPLICATIONS Qualifiers: Diabetes mellitus type: type 2 Diabetes mellitus complication status: with kidney complications Diabetes mellitus complication detail: with chronic kidney disease (8) Atrial fibrillation Code(s): I48.91 - UNSPECIFIED ATRIAL FIBRILLATION 9 bilateral cellulitis of the legs plan abx started resp support await for all cx to be back elevation of the leg continue as per pul icu cc time 50 min
--- NOTE | 2016-08-12 16:24 | EKG ---
Test Reason : Blood Pressure : / mmHG Vent. Rate : 094 BPM Atrial Rate : 086 BPM P-R Int : 000 ms QRS Dur : 158 ms QT Int : 410 ms P-R-T Axes : 000 046 032 degrees QTc Int : 512 ms NORMAL SINUS RHYTHM, WITH FREQUENT APC.s. CANNOT RULE OUT PERIOD OF ATRIAL FIBRILLATION RIGHT BUNDLE BRANCH BLOCK ABNORMAL ECG WHEN COMPARED WITH ECG OF 11-AUG-2016 17:56, NO SIGNIFICANT CHANGE WAS FOUND Confirmed by FREDI ALLEN, ANA ([id number]) on 08/12/2016 4:24:12 PM Referred By: Ne FOX Confirmed By:ANA RAI MD
--- NOTE | 2016-08-12 16:29 | EKG ---
Test Reason : Blood Pressure : / mmHG Vent. Rate : 105 BPM Atrial Rate : 096 BPM P-R Int : 000 ms QRS Dur : 154 ms QT Int : 382 ms P-R-T Axes : 000 055 018 degrees QTc Int : 504 ms ATRIAL FIBRILLATION WITH RAPID VENTRICULAR RESPONSE RIGHT BUNDLE BRANCH BLOCK ABNORMAL ECG WHEN COMPARED WITH ECG OF 07-JUL-2016 15:48, ATRIAL FIBRILLATION HAS REPLACED SINUS RHYTHM Confirmed by ANA RAI MD ([id number]) on 08/12/2016 4:29:28 PM Referred By: Confirmed By:ANA RAI MD
[2016-08-12] MEDS: CLINDAMYCIN 300 MG PREMIX IVPB 50 ML IVPB SCH ×2 (16:47→17:14)
[2016-08-12] MEDS: MEROPENEM 1 GM in DEXTROSE 5%-WATER - 100 ML IVPB SCH (17:14)
--- NOTE | 2016-08-12 17:14 | CON.PULM ---
Consult Reason for Consultation:: dyspnea - History of Present Illness History of Present Illness: 75 year old male transferred from SNF because of increased shortness of breath. Pt had approximate 7 days history of cough productive of purulent sputum and was started on Levaquin in SNF. No chest pain or palpitations. In ER pt required NIPPV. Last night he had placement of Left pig tail catheter and drainage of transudative fluid. PMH: Severe COPD: O2 dependent (2l/min) and steroid dependent Acute Renal Failure 02/22; required dialysis for fluid removal. Renal function recovered: pt off dialysis MRSA sepsis: S/P infected dialysis catheter CAD-S/P 2 stents S/P CHF HTN CRF: baseline Creat 1.9 PVD with chronic lymphedema, Pleural effusions requiring thoracentesis (transudative fluid) Anemia. 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 Cardio/Vascular: Yes: CAD, CHF (diastolic), HTN, Hyperlipdemia Pulmonary: Yes: COPD, O2 Dependent, Sleep Apnea Renal/: Yes: Renal Inusuff, Renal Calculi Psych: Yes: Anxiety Dermatology: Yes: Cellulitis (cellulitis during 02/2016 admission) Additional Medical History: Obesity - Past Surgical History Past Surgical History: Yes: Stent - Alcohol/Substance Use Hx Alcohol Use: No History of Substance Use: reports: None - Smoking History Smoking history: Unknown if ever smoked Have you smoked in the past 12 months: No Aproximately how many cigarettes per day: 0 If you are a former smoker, when did you quit?: 6 years - Social History ADL: Independent 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 History of Recent Travel: No Home Medications - Allergies Allergies/Adverse Reactions: Allergies Allergy/AdvReac Type Severity Reaction Status Date / Time Penicillins Allergy Verified 08/11/16 17:58 - Home Medications Home Medications: Ambulatory Orders Aa/Hydrolyzed Collagen, Whey [Lps Neutral Flavor Liquid] 960 ml PO BID 08/11/16 Acetaminophen 650 mg PO Q6H PRN 08/11/16 Albuterol 2.5/Ipratropium 0.5 [Duoneb -] 1 neb IH TID 08/11/16 Amlodipine Besylate [Norvasc -] 10 mg PO DAILY 08/11/16 Apixaban [Eliquis] 2.5 mg PO BID 08/11/16 Aspirin [Aspirin EC] 81 mg PO DAILY 08/11/16 Bupropion HCl [Bupropion Xl] 150 mg PO DAILY 08/11/16 Docusate Sodium [Colace -] 100 mg PO BID 08/11/16 Duloxetine HCl 60 mg PO DAILY 08/11/16 Epoetin Keith [Epogen] 10,000 unit IM MOWEFR 08/11/16 Ferrous Sulfate 325 mg PO BID 08/11/16 Fluticasone/Vilanterol [Breo Ellipta 100-25 Mcg INH] 1 each IH DAILY 08/11/16 Guaifenesin [Mucinex] 600 mg PO Q12H 08/11/16 Levofloxacin [Levaquin] 250 mg PO DAILY 08/11/16 Mineral Oil/Hydrophil Petrolat [Aquaphor Healing Ointment] 50 gm TP BID Nystatin Powder [Nystop Topical Powder -] 60 gm TP DAILY 08/11/16 Pantoprazole Sodium [Protonix] 40 mg PO DAILY 08/11/16 Polyethylene Glycol 3350 [Miralax (For Daily Use) -] 17 gm PO DAILY 08/11/16 Prednisone 30 mg PO DAILY 08/11/16 Sennosides [Evac-U-Gen] 17.2 mg PO DAILY 08/11/16 Sodium Chloride Nasal [place] [[place] Nasal [place]] 2 spray NS Q12H PRN Tamsulosin HCl [Flomax] 0.4 mg PO DAILY 08/11/16 Torsemide 40 mg PO DAILY 08/11/16 Family Disease History - Family Disease History Family Disease History: Other: Father (parkinson's disease) Physical Exam Vital Sings: Vital Signs Temperature 98.2 F 08/12/16 13:40 Pulse Rate 82 08/12/16 16:00 Respiratory Rate 16 08/12/16 16:00 Blood Pressure 148/68 08/12/16 16:00 O2 Sat by Pulse Oximetry (%) 98 08/12/16 16:06 Constitutional: Yes: No Distress, Calm Eyes: No: Sclera Icterus HENT: Yes: Atraumatic, Normocephalic Neck: Yes: Supple. No: Trachea Midline Cardiovascular: Yes: Regular Rate and Rhythm. No: JVD Respiratory: Yes: Diminished, Rhonchi (rhonchi at the bases) ...Percussion: No: Dullnes, Hyperresonance ...Clubbing: No Gastrointestinal: Yes: Soft. No: Hepatomegaly, Splenomegaly, Tenderness Extremities: Yes: Other (chronic changes) Labs: CBC, BMP 08/12/16 05:20 08/12/16 05:20 ABG Results ABG pH 7.42 (7.35-7.45) 08/11/16 18:29 ABG pCO2 at Pt Temp 50.4 mmHg (35-45) H 08/11/16 18:29 ABG pO2 at Pt Temp 28.1 mmHg (70-100) L* D 08/11/16 18:29 ABG HCO3 31.7 meq/L (22-26) H 08/11/16 18:29 ABG O2 Sat (Measured) 43.9 % (90-98.9) L* 08/11/16 18:29 ABG O2 Content 4.9 % vol (15-22) L* 08/11/16 18:29 ABG Base Excess 6.9 meq/l (-2-2) H 08/11/16 18:29 Imaging - Results Chest X-ray: Report Reviewed, Image Reviewed (08/11: Cm, large left effusion> right. CXR 08/12: interval placemnt lefy chest catheter and clearing of left effusion.) Problem List - Problems (1) Acute and chronic respiratory failure with hypoxia Code(s): J96.21 - ACUTE AND CHRONIC RESPIRATORY FAILURE WITH HYPOXIA (2) Atrial fibrillation Code(s): I48.91 - UNSPECIFIED ATRIAL FIBRILLATION (3) Pleural effusion Code(s): J90 - PLEURAL EFFUSION, NOT ELSEWHERE CLASSIFIED (4) Pneumonia Code(s): J18.9 - PNEUMONIA, UNSPECIFIED ORGANISM Qualifiers: Pneumonia type: due to unspecified organism Laterality: left Lung location: lower lobe of lung Qualified Code(s): J18.1 - Lobar pneumonia, unspecified organism (5) Acute on chronic diastolic (congestive) heart failure Code(s): I50.33 - ACUTE ON CHRONIC DIASTOLIC (CONGESTIVE) HEART FAILURE Assessment/Plan 75 year old male with acute on chronic hypercapnic, hyoxic respiratory failure, pneumonia (hx of MRSA sepsis) and acute exacerbation COPD and obesity. Hx DVT and pt on anticoagulation. Pt improved post tx with antibiotics, diuretics and NIPPV. Pt currently on V/M and is alert and oriented and in no acute distress and speaking in full sentences. Sugest: Antibiotics per I.D. Diuretic Prednisone-taper over the next few days Inhaled bronchodilators O2 to maintain SaO2 greater than 90. Remove CT once drainage decreased. Thank you for referring this patient for consultation.
--- NOTE | 2016-08-12 21:16 | PN ---
Physical Exam: SUBJECTIVE: Patient seen and examined at bedside in ICU. States breathing is better. OBJECTIVE: Vital Signs Period Temp Pulse Resp BP Sys/Carmona Pulse Ox Last 24 Hr 97.2 F-98.5 F 82-116 16-27 101-148/50-87 92-100 GENERAL: The patient is awake, alert, and fully oriented, in no acute distress. LUNGS: Diffuse wheezing, rhonchi HEART: Regular rate and rhythm, S1, S2 without murmur, rub or gallop. ABDOMEN: Soft, nontender, nondistended, normoactive bowel sounds, no guarding, no rebound, no hepatosplenomegaly, no masses. EXTREMITIES: 2+ pulses, warm, well-perfused, 1+ bilateral edema NEUROLOGICAL: Cranial nerves II through XII grossly intact. Normal speech, gait not observed. PSYCH: Normal mood, normal affect. SKIN: Warm, dry, normal turgor, no rashes or lesions noted Laboratory Results - last 24 hr 08/11/16 08/12/16 08/12/16 23:00 00:40 05:20 WBC 8.5 RBC 2.87 L Hgb 8.3 L Hct 25.1 L MCV 87.5 MCHC 33.2 RDW 17.9 H Plt Count 187 MPV 7.1 L Neutrophils % 90.4 H Lymphocytes % 4.1 L Monocytes % 5.4 Eosinophils % 0.0 D Basophils % 0.1 Sodium Potassium Chloride Carbon Dioxide Anion Gap BUN Creatinine Creat Clearance w eGFR POC Glucometer Random Glucose Calcium Total Bilirubin AST ALT Alkaline Phosphatase LD Total Creatine Kinase 26 L Troponin I < 0.02 Total Protein Albumin Triglycerides Cholesterol Total LDL Cholesterol HDL Cholesterol Pleural Fluid Source Pleural Pleural Color Yellow Pleural Appearance Cloudy Pleural WBC 480 Pleural RBC 4891 Pleural Neutrophils 10 Pleural Lymphocytes 51 Pleural Monocytes 11 Pleural Macrophages 27 Pleural Total Protein 2.480 Pleural LDH 140.08 Pleural Cholesterol 66 08/12/16 08/12/16 08/12/16 05:20 07:00 11:47 WBC RBC Hgb Hct MCV MCHC RDW Plt Count MPV Neutrophils % Lymphocytes % Monocytes % Eosinophils % Basophils % Sodium 142 Potassium 4.1 Chloride 100 Carbon Dioxide 31 Anion Gap 11 BUN 44 H Creatinine 2.0 H Creat Clearance w eGFR 32.92 POC Glucometer [phone] Random Glucose 123 H D Calcium 7.9 L Total Bilirubin 0.5 D AST 10 L D ALT 15 Alkaline Phosphatase 67 LD Total 189 D Creatine Kinase Troponin I Total Protein 5.3 L Albumin 2.7 L Triglycerides 68 Cancelled Cholesterol 188 Cancelled Total LDL Cholesterol 125 H Cancelled HDL Cholesterol 53 D Cancelled Pleural Fluid Source Pleural Color Pleural Appearance Pleural WBC Pleural RBC Pleural Neutrophils Pleural Lymphocytes Pleural Monocytes Pleural Macrophages Pleural Total Protein Pleural LDH Pleural Cholesterol Active Medications Generic Name Dose Route Start Last Admin Trade Name Aylin PRN Reason Stop Dose Admin Acetaminophen 650 mg 08/11/16 22:14 Tylenol - PO Q6H PRN PAIN Albuterol/Ipratropium 1 amp 08/12/16 00:00 08/12/16 17:14 Duoneb - NEB 1 amp QIDR LESLEE Administration Amlodipine Besylate 10 mg 08/12/16 10:00 08/12/16 09:11 Norvasc - PO 10 mg DAILY LESLEE Administration Apixaban 2.5 mg 08/11/16 22:00 08/12/16 09:05 Eliquis - PO 2.5 mg BID LESLEE Administration Aspirin 81 mg 08/12/16 10:00 08/12/16 09:11 Ecotrin - PO 81 mg DAILY LESLEE Administration Bupropion HCl 150 mg 08/12/16 10:00 08/12/16 09:03 Wellbutrin Xl - PO 150 mg DAILY LESLEE Administration Chlorhexidine Gluconate 1 applic 08/11/16 22:00 08/11/16 22:00 Hibiclens For Decolonization - TP 1 applic HS LESLEE Administration Docusate Sodium 100 mg 08/11/16 22:00 08/12/16 09:02 Colace - PO 100 mg BID LESLEE Administration Duloxetine HCl 60 mg 08/12/16 10:00 08/12/16 09:11 Cymbalta - PO 60 mg DAILY LESLEE Administration Emollient Ointment 1 applic 08/12/16 10:00 08/12/16 09:01 Aquaphor - TP 1 applic BID LESLEE Administration Epoetin Keith 10,000 unit 08/12/16 08:30 08/12/16 09:04 Procrit - SQ Not Given MoWeFr@1000 [facility] Ferrous Sulfate 325 mg 08/12/16 10:00 08/12/16 09:11 Feosol - PO 325 mg BID LESLEE Administration Furosemide 80 mg 08/12/16 06:00 08/12/16 13:07 Lasix Injection - IVPUSH 80 mg BID@0600,1400 LESLEE Administration Meropenem 1 gm/ Dextrose 100 mls @ 100 mls/hr 08/12/16 18:00 08/12/16 17:14 IVPB 100 mls/hr Q8H-IV LESLEE Administration Protocol Clindamycin Phosphate 50 mls @ 100 mls/hr 08/12/16 14:15 08/12/16 17:14 Cleocin 300 Mg Premix Ivpb IVPB Not Given Q8H-IV LESLEE Morphine Sulfate 2 mg 08/12/16 11:29 08/12/16 10:10 Morphine Injection - IVPUSH 2 mg Q4H PRN Administration PAIN Mupirocin 1 applic 08/11/16 22:00 08/12/16 09:02 Bactroban Ointment (For Decolonization) - NS 08/16/16 21:59 1 applic BID LESLEE Administration Non-Formulary Medication 1 each 08/12/16 10:00 Fluticasone/Vilanterol [Breo Ellipta 100-25 Mcg Inh] IH DAILY [facility] Nystatin 1 applic 08/12/16 10:00 08/12/16 09:03 Nystop Powder - TP 1 applic DAILY LESLEE Administration Pantoprazole Sodium 40 mg 08/12/16 10:00 08/12/16 09:13 Protonix - PO 40 mg DAILY LESLEE Administration Prednisone 40 mg 08/12/16 10:00 08/12/16 09:11 Deltasone - PO 40 mg DAILY LESLEE Administration Senna 2 tab 08/12/16 10:00 08/12/16 09:11 Senna - PO 2 tab DAILY LESLEE Administration Tamsulosin HCl 0.4 mg 08/12/16 08:30 08/12/16 09:00 Flomax - PO 0.4 mg DAILY@0830 LESLEE Administration ASSESSMENT/PLAN: 75 year-old male with a significant PMH of HTN, HLD, CAD s/p stents x 2 (2014), diastolic heart failure, afib, COPD, respiratory failure requiring intubation ( 02/1016-04/2016), GI bleed, h/o DVT and PE. SNF resident. Admitted for respiratory failure, HCAP, left pleural effusion, and acute on chronic renal failure. Acute on chronic respiratory failure HCAP --left base infiltrate, just finished course of levofloxacin as outpatient --afebrile, no leukocytosis --meropenem (day #1) and clindamycin (day #1) Large left pleural effusion --resolved after left pigtail placement, to LWS --small bilateral pleural effusions remain COPD exacerbation --continue prednisone, duonebs, inhaler Acute on chronic diastolic heart failure --BNP 3058 --continue aggressive IV lasix Atrial fibrillation --rate-controlled, not on AV conduction regine at present --on Eliquis Acute on chronic renal failure --2.2 on admission, 1.7 today (baseline 1.5) Hypertension --BP well-controlled --continue amlodipine Hyperlipidemia --not on a statin CAD s/p stents --continue ASA h/o DVT and PE --on Eliquis F/E/N Fluids: PO intake adequate Electrolytes: replete as indicated Nutrition: diabetic, low sodium DVT prophylaxis: on Eliquis; oob, ambulation Physical therapy evaluation Dispo: continues to require ICU level care. Full Code. Visit type - Emergency Visit Emergency Visit: Yes ED Registration Date: 08/11/16 Care time: The patient presented to the Emergency Department on the above date and was hospitalized for further evaluation of their emergent condition. - New Patient This patient is new to me today: Yes Date on this admission: 08/13/16 - Critical Care Critical Care patient: Yes Total Critical Care Time (in minutes): 45 Critical Care Statement: The care of this patient involved high complexity decision making to prevent further life threatening deterioration of the patient 's condition and/or to evalute & treat vital organ system(s) failure or risk of failure.
[2016-08-12] MEDS: CHLORHEXIDINE GLUCONATE 4% CLEANSER FOR DECOLONIZATION TP SCH (22:46)
[2016-08-13] MEDS: CLINDAMYCIN 300 MG PREMIX IVPB 50 ML IVPB SCH ×3 (02:00→17:13)
[2016-08-13] MEDS: MEROPENEM 1 GM in DEXTROSE 5%-WATER - 100 ML IVPB SCH ×3 (03:00→17:15)
[2016-08-13] MEDS: morphine CARPU-JECT 2 MG/1 ML DISP.SYRIN IVPUSH PRN (06:09)
[2016-08-13] MEDS: FUROSEMIDE 100 MG/10 ML INJECTABLE VIAL IVPUSH SCH ×2 (06:09→14:13)
[2016-08-13] MEDS: ALBUTEROL SO4 2.5/IPRATROPIUM 0.5 INH SOL 3 ML VIAL.NEB. NEB SCH ×4 (06:30→23:10)
[2016-08-13 06:39] LABS: CALCIUM 7.5 mg/dL (8.5-10.1); CREATININE 1.7 mg/dL (0.7-1.3); MAGNESIUM 2.2 mg/dL (1.8-2.4); PHOSPHOROUS 3.9 mg/dL (2.5-4.9)
[2016-08-13 06:40] LABS: BASOPHIL 0.2 % (0-2.0); EOSINOPHIL 0.1 % (0-4.5); MCH 29.3 pg (25.7-33.7); MCHC 33.4 g/dl (32.0-35.9); MEAN CELL VOLUME 87.5 fl (80-96); MEAN PLT VOLUME 7.2 fl (7.5-11.1); NEUTROPHILS 85.9 % (42.8-82.8); PLATELET COUNT 177 K/MM3 (134-434); RDW 17.4 % (11.9-15.9); WHITE BLOOD COUNT 8.3 K/mm3 (4.0-10.0)
[2016-08-13] MEDS ORDERED: PT OWN MED DRAWER 7, Y5N ONE ×2 (08:52→17:15)
[2016-08-13] MEDS: TAMSULOSIN HCL 0.4 MG CAP.ER.24H (FP) PO SCH (09:09)
[2016-08-13] MEDS: DOCUSATE SODIUM 100 MG CAPSULE (FP) PO SCH ×2 (09:09→22:39)
[2016-08-13] MEDS: predniSONE 20 MG TABLET (UD) PO SCH (09:10)
[2016-08-13] MEDS: DULoxetine HCL 30 MG CAPSULE.DR (FP) PO SCH (09:10)
[2016-08-13] MEDS: ASPIRIN COATED 81 MG TABLET.EC PO SCH (09:11)
[2016-08-13] MEDS: amLODIPine BESYLATE 10 MG TABLET (FP) PO SCH (09:11)
[2016-08-13] MEDS: SENNOSIDES 8.6MG TABLET (FP) PO SCH (09:11)
[2016-08-13] MEDS: PANTOPRAZOLE 40 MG TABLET (FP) PO SCH (09:11)
[2016-08-13] MEDS: NYSTATIN POWDER 100,000 UNITS/GM - 15 GM TOPICAL POWDER TP SCH (09:14)
[2016-08-13] MEDS: MINERAL OIL/PET HY-PHL TOPICAL OINTMENT 454 GM JAR TP SCH ×2 (09:14→22:37)
[2016-08-13] MEDS: MUPIROCIN 2% TOPICAL OINTMENT FOR DECOLONIZATION NS SCH ×2 (09:15→22:39)
[2016-08-13] MEDS: FERROUS SO4 325 MG TABLET (FP) PO SCH ×2 (09:21→22:39)
[2016-08-13] MEDS: APIXABAN 2.5 MG TABLET PO SCH ×2 (09:21→22:39)
--- NOTE | 2016-08-13 10:39 | PN ---
Progress Note (short form) - Note Progress Note: Seen and examined in the ICU Pigtail placed: transudative effusion decreased CT output overnight ~50ml Breathing better this AM CXR: pending Current Medications Acetaminophen (Tylenol -) 650 mg PO Q6H PRN PRN Reason: PAIN Last Admin: 08/12/16 22:47 Dose: 650 mg Albuterol/Ipratropium (Duoneb -) 1 amp NEB QIDR [facility] Last Admin: 08/13/16 06:30 Dose: 1 amp Amlodipine Besylate (Norvasc -) 10 mg PO DAILY [facility] Last Admin: 08/13/16 09:11 Dose: 10 mg Apixaban (Eliquis -) 2.5 mg PO BID [facility] Last Admin: 08/13/16 09:21 Dose: 2.5 mg Aspirin (Ecotrin -) 81 mg PO DAILY [facility] Last Admin: 08/13/16 09:11 Dose: 81 mg Bupropion HCl (Wellbutrin Xl -) 150 mg PO DAILY [facility] Last Admin: 08/12/16 09:03 Dose: 150 mg Chlorhexidine Gluconate (Hibiclens For Decolonization -) 1 applic TP HS [facility] Last Admin: 08/12/16 22:46 Dose: 1 applic Docusate Sodium (Colace -) 100 mg PO BID [facility] Last Admin: 08/13/16 09:09 Dose: 100 mg Duloxetine HCl (Cymbalta -) 60 mg PO DAILY [facility] Last Admin: 08/13/16 09:10 Dose: 60 mg Emollient Ointment (Aquaphor -) 1 applic TP BID [facility] Last Admin: 08/13/16 09:14 Dose: 1 applic Epoetin Keith (Procrit -) 10,000 unit SQ MoWeFr@1000 [facility] Last Admin: 08/12/16 09:04 Dose: Not Given Ferrous Sulfate (Feosol -) 325 mg PO BID [facility] Last Admin: 08/13/16 09:21 Dose: 325 mg Furosemide (Lasix Injection -) 80 mg IVPUSH BID@0600,1400 [facility] Last Admin: 08/13/16 06:09 Dose: 80 mg Meropenem 1 gm/ Dextrose 100 mls @ 100 mls/hr IVPB Q8H-IV LESLEE PRN Reason: Protocol Last Admin: 08/13/16 09:19 Dose: 100 mls/hr Clindamycin Phosphate (Cleocin 300 Mg Premix Ivpb) 50 mls @ 100 mls/hr IVPB Q8H -IV LESLEE Last Admin: 08/13/16 09:19 Dose: 100 mls/hr Morphine Sulfate (Morphine Injection -) 2 mg IVPUSH Q4H PRN PRN Reason: PAIN Last Admin: 08/13/16 06:09 Dose: 2 mg Mupirocin (Bactroban Ointment (For Decolonization) -) 1 applic NS BID [facility] Stop: 08/16/16 21:59 Last Admin: 08/13/16 09:15 Dose: 1 applic Non-Formulary Medication (Fluticasone/Vilanterol [Breo Ellipta 100-25 Mcg Inh]) 1 each IH DAILY [facility] Nystatin (Nystop Powder -) 1 applic TP DAILY [facility] Last Admin: 08/13/16 09:14 Dose: 1 applic Pantoprazole Sodium (Protonix -) 40 mg PO DAILY [facility] Last Admin: 08/13/16 09:11 Dose: 40 mg Prednisone (Deltasone -) 40 mg PO DAILY [facility] Last Admin: 08/13/16 09:10 Dose: 40 mg Senna (Senna -) 2 tab PO DAILY [facility] Last Admin: 08/13/16 09:11 Dose: 2 tab Tamsulosin HCl (Flomax -) 0.4 mg PO DAILY@0830 [facility] Last Admin: 08/13/16 09:09 Dose: 0.4 mg Vital Signs Period Temp Pulse Resp BP Sys/Carmona Pulse Ox Last 24 Hr 97.5 F-98.3 F 76-94 16-27 120-158/64-81 92-100 Intake & Output 08/10/16 08/11/16 08/12/16 08/13/16 23:59 23:59 23:59 23:59 Intake Total 475 2750 850 Output Total 1400 3760 50 Balance -925 -1010 800 Weight 101.5 kg 99.8 kg 99.8 kg Denies: CP/PEACOCK/SOB/n/v General: awake, alert and cooperative w/o distress HEENT: PERRL CV: irr, irr Pulm: diminished in bases, scattered rhonchi improve with cough Abd: obese, SNTND, +BS Ext: LE +4 edema, chronci venous stasis changes, mild errythemia Neuro: grossly intact CBCD WBC 8.3 K/mm3 (4.0-10.0) 08/13/16 05:15 RBC 2.74 M/mm3 (4.00-5.60) L 08/13/16 05:15 Hgb 8.0 GM/dL (11.7-16.9) L 08/13/16 05:15 Hct 24.0 % (35.4-49) L 08/13/16 05:15 MCV 87.5 fl (80-96) 08/13/16 05:15 MCHC 33.4 g/dl (32.0-35.9) 08/13/16 05:15 RDW 17.4 % (11.9-15.9) H 08/13/16 05:15 Plt Count 177 K/MM3 (134-434) 08/13/16 05:15 MPV 7.2 fl (7.5-11.1) L 08/13/16 05:15 CMP Sodium 142 mmol/L (136-145) 08/13/16 05:15 Potassium 3.5 mmol/L (3.5-5.1) 08/13/16 05:15 Chloride 100 mmol/L (98-107) 08/13/16 05:15 Carbon Dioxide 36 mmol/L (21-32) H 08/13/16 05:15 Anion Gap 6 (8-16) L 08/13/16 05:15 BUN 44 mg/dL (7-18) H 08/13/16 05:15 Creatinine 1.7 mg/dL (0.7-1.3) H 08/13/16 05:15 Creat Clearance w eGFR 32.92 (>60) 08/12/16 05:20 Random Glucose 108 mg/dL (74-106) H 08/13/16 05:15 Calcium 7.5 mg/dL (8.5-10.1) L 08/13/16 05:15 Total Bilirubin 0.5 mg/dL (0.2-1.0) D 08/12/16 05:20 AST 10 U/L (15-37) L D 08/12/16 05:20 ALT 15 U/L (12-78) 08/12/16 05:20 Alkaline Phosphatase 67 U/L (45-117) 08/12/16 05:20 Total Protein 5.3 g/dl (6.4-8.2) L 08/12/16 05:20 Albumin 2.7 g/dl (3.4-5.0) L 08/12/16 05:20 CARDIAC ENZYMES Creatine Kinase 26 IU/L (39-308) L 08/11/16 23:00 Troponin I < 0.02 ng/ml (0.00-0.05) 08/11/16 23:00 CXR: zainab Problem List - Problems (1) Acute and chronic respiratory failure with hypoxia Code(s): J96.21 - ACUTE AND CHRONIC RESPIRATORY FAILURE WITH HYPOXIA (2) Pneumonia Code(s): J18.9 - PNEUMONIA, UNSPECIFIED ORGANISM Qualifiers: Pneumonia type: due to unspecified organism Laterality: left Lung location: lower lobe of lung Qualified Code(s): J18.1 - Lobar pneumonia, unspecified organism (3) Pleural effusion Code(s): J90 - PLEURAL EFFUSION, NOT ELSEWHERE CLASSIFIED (4) Acute on chronic diastolic (congestive) heart failure Code(s): I50.33 - ACUTE ON CHRONIC DIASTOLIC (CONGESTIVE) HEART FAILURE (5) COPD (chronic obstructive pulmonary disease) Code(s): J44.9 - CHRONIC OBSTRUCTIVE PULMONARY DISEASE, UNSPECIFIED (6) Renal failure (ARF), acute on chronic Code(s): N17.9 - ACUTE KIDNEY FAILURE, UNSPECIFIED N18.9 - CHRONIC KIDNEY DISEASE, UNSPECIFIED (7) Diabetes Code(s): E11.9 - TYPE 2 DIABETES MELLITUS WITHOUT COMPLICATIONS Qualifiers: Diabetes mellitus type: type 2 Diabetes mellitus complication status: with kidney complications Diabetes mellitus complication detail: with chronic kidney disease (8) Atrial fibrillation Code(s): I48.91 - UNSPECIFIED ATRIAL FIBRILLATION Assessment/Plan -On 50% venti-mask (baseline) -Continue L pleural pigtail - will remove today if CXR stable and cont to have decreased output -Continue diuresis - suspect that his hypoxia was largely volume related -Abx per ID - has h/o MRSA -Nebs -Short course of steroids -Rate control -Continue anticoagulation -Glucose control -OOB to chair as able -Continue home meds as appropriate -GI PPx IStable for floor transfer Critically Ill 35min CCT Bo[place] ACNP Pulm/CCM CCT: 35m
[2016-08-13] MEDS: guaiFENesin/D-METHORPHAN HB 10 ML UNIT-DOSE CUPS PO PRN ×2 (11:10→22:45)
--- NOTE | 2016-08-13 14:18 | PN ---
Progress Note, Physician Chief Complaint: Pt. A&Ox3; feels much better (not dyspneic; little pain at chest tube site). History of Present Illness: The patient is a 75 year old white male brought via EMS, with a significant past medical history of mild GI bleed, gerd, BPH, LLE DVT, HTN, HLD, diabetes, diastolic CHF, COPD (resp. failure), TIA, anemia and CAD - 2 cardiac stents placed 03/26/2015, who presents to the emergency department with shortness of breath onset today. The patient had a 2 month stay in the hospital for COPD exacerbation, where he required being intubated from 02/18/2016 to ?04/13/2016. Since then he has been in the ED an additional 2 times for asthma exacerbation and was discharged same day. The patient denies chest pain, headache and dizziness. Denies fever, chills, nausea, vomit, diarrhea and constipation. Denies dysuria, frequency, urgency and hematuria. Pt says he has not been walking for several months "because I've been in a hospital bed for so long". Allergies: None Past surgical history: Cardiac Stents (x2) Social history: No alcohol, tobacco or drug use reported PMD - Dr. Ceci Javed - Current Medication List Current Medications: Active Medications Acetaminophen (Tylenol -) 650 mg PO Q6H PRN PRN Reason: PAIN Last Admin: 08/12/16 22:47 Dose: 650 mg Albuterol/Ipratropium (Duoneb -) 1 amp NEB QIDR [facility] Last Admin: 08/13/16 12:10 Dose: 1 amp Amlodipine Besylate (Norvasc -) 10 mg PO DAILY [facility] Last Admin: 08/13/16 09:11 Dose: 10 mg Apixaban (Eliquis -) 2.5 mg PO BID [facility] Last Admin: 08/13/16 09:21 Dose: 2.5 mg Aspirin (Ecotrin -) 81 mg PO DAILY [facility] Last Admin: 08/13/16 09:11 Dose: 81 mg Bupropion HCl (Wellbutrin Xl -) 150 mg PO DAILY [facility] Last Admin: 08/13/16 10:50 Dose: 150 mg Chlorhexidine Gluconate (Hibiclens For Decolonization -) 1 applic TP HS [facility] Last Admin: 08/12/16 22:46 Dose: 1 applic Docusate Sodium (Colace -) 100 mg PO BID [facility] Last Admin: 08/13/16 09:09 Dose: 100 mg Duloxetine HCl (Cymbalta -) 60 mg PO DAILY [facility] Last Admin: 08/13/16 09:10 Dose: 60 mg Emollient Ointment (Aquaphor -) 1 applic TP BID [facility] Last Admin: 08/13/16 09:14 Dose: 1 applic Epoetin Keith (Procrit -) 10,000 unit SQ MoWeFr@1000 [facility] Last Admin: 08/12/16 09:04 Dose: Not Given Ferrous Sulfate (Feosol -) 325 mg PO BID [facility] Last Admin: 08/13/16 09:21 Dose: 325 mg Furosemide (Lasix Injection -) 80 mg IVPUSH BID@0600,1400 [facility] Last Admin: 08/13/16 06:09 Dose: 80 mg Guaifenesin (Robitussin Dm -) 10 ml PO Q6H PRN PRN Reason: COUGH Last Admin: 08/13/16 11:10 Dose: 10 ml Meropenem 1 gm/ Dextrose 100 mls @ 100 mls/hr IVPB Q8H-IV [facility] PRN Reason: Protocol Last Admin: 08/13/16 09:19 Dose: 100 mls/hr Clindamycin Phosphate (Cleocin 300 Mg Premix Ivpb) 50 mls @ 100 mls/hr IVPB Q8H -IV [facility] Last Admin: 08/13/16 09:19 Dose: 100 mls/hr Morphine Sulfate (Morphine Injection -) 2 mg IVPUSH Q4H PRN PRN Reason: PAIN Last Admin: 08/13/16 06:09 Dose: 2 mg Mupirocin (Bactroban Ointment (For Decolonization) -) 1 applic NS BID [facility] Stop: 08/16/16 21:59 Last Admin: 08/13/16 09:15 Dose: 1 applic Non-Formulary Medication (Fluticasone/Vilanterol [Breo Ellipta 100-25 Mcg Inh]) 1 each IH DAILY [facility] Nystatin (Nystop Powder -) 1 applic TP DAILY [facility] Last Admin: 08/13/16 09:14 Dose: 1 applic Pantoprazole Sodium (Protonix -) 40 mg PO DAILY [facility] Last Admin: 08/13/16 09:11 Dose: 40 mg Prednisone (Deltasone -) 40 mg PO DAILY [facility] Last Admin: 08/13/16 09:10 Dose: 40 mg Senna (Senna -) 2 tab PO DAILY [facility] Last Admin: 08/13/16 09:11 Dose: 2 tab Tamsulosin HCl (Flomax -) 0.4 mg PO DAILY@0830 [facility] Last Admin: 08/13/16 09:09 Dose: 0.4 mg - Objective Vital Signs: Vital Signs Temperature 97.8 F 08/13/16 12:00 Pulse Rate 82 08/13/16 12:00 Respiratory Rate 18 08/13/16 12:00 Blood Pressure 113/90 08/13/16 12:00 O2 Sat by Pulse Oximetry (%) 96 08/13/16 12:10 Constitutional: Yes: Calm Eyes: Yes: WNL HENT: Yes: WNL Neck: Yes: WNL Cardiovascular: Yes: Pulse Irregular Respiratory: Yes: Diminished Gastrointestinal: Yes: Soft ...Rectal Exam: Yes: Deferred Genitourinary: Yes: Anuria Musculoskeletal: Yes: Muscle Weakness Extremities: Yes: Cool Edema: No Peripheral Pulses WNL: Yes Wound/Incision: Yes: Other (pigtal cath CT left side) Neurological: Yes: Alert, Oriented, Weakness Psychiatric: Yes: Alert, Oriented Labs: CBC, BMP 08/13/16 05:15 08/13/16 05:15 INR, PTT INR 1.13 (0.82-1.09) 08/11/16 18:20 Problem List - Problems (1) Acute and chronic respiratory failure with hypoxia Assessment/Plan: feels better respiratory-ohara since drainage of one liter fluid via pigtail chest tube. Follow fluid results. For likely chest tube removal today. Code(s): J96.21 - ACUTE AND CHRONIC RESPIRATORY FAILURE WITH HYPOXIA (2) Atrial fibrillation Assessment/Plan: Start AV conduction regine if needed for HR control. On apixaban for anticoagulation (?hx DVT/PE as initial reason for anticoagulation). Code(s): I48.91 - UNSPECIFIED ATRIAL FIBRILLATION (3) Pneumonia Assessment/Plan: antibiotics per ID. s/p chest tube insertion, with drainage of a liter initially. Code(s): J18.9 - PNEUMONIA, UNSPECIFIED ORGANISM Qualifiers: Pneumonia type: due to unspecified organism Laterality: left Lung location: lower lobe of lung Qualified Code(s): J18.1 - Lobar pneumonia, unspecified organism (4) Renal failure (ARF), acute on chronic Code(s): N17.9 - ACUTE KIDNEY FAILURE, UNSPECIFIED N18.9 - CHRONIC KIDNEY DISEASE, UNSPECIFIED (5) Anemia Code(s): D64.9 - ANEMIA, UNSPECIFIED Qualifiers: Anemia type: unspecified type Qualified Code(s): D64.9 - Anemia, unspecified (6) Acute on chronic diastolic (congestive) heart failure Code(s): I50.33 - ACUTE ON CHRONIC DIASTOLIC (CONGESTIVE) HEART FAILURE (7) COPD (chronic obstructive pulmonary disease) Code(s): J44.9 - CHRONIC OBSTRUCTIVE PULMONARY DISEASE, UNSPECIFIED (8) Diabetes Code(s): E11.9 - TYPE 2 DIABETES MELLITUS WITHOUT COMPLICATIONS Qualifiers: Diabetes mellitus type: type 2 Diabetes mellitus complication status: with kidney complications Diabetes mellitus complication detail: with chronic kidney disease (9) Stage 1 skin ulcer of sacral region Code(s): L89.151 - PRESSURE ULCER OF SACRAL REGION, STAGE 1 (10) GERD (gastroesophageal reflux disease) Assessment/Plan: Consider changing PPI to ranitidine becasue of the former's potential for increasing cardiac risks. Code(s): K21.9 - GASTRO-ESOPHAGEAL REFLUX DISEASE WITHOUT ESOPHAGITIS
[2016-08-13] MEDS ORDERED: HEMOQUE TEST 1 EACH EACH ONE (16:32)
--- NOTE | 2016-08-13 17:42 | PN ---
Physical Exam: SUBJECTIVE: Patient seen and examined. Coughing a lot. "I feel lousy." OBJECTIVE: Vital Signs Period Temp Pulse Resp BP Sys/[place] Pulse Ox Last 24 Hr 97.5 F-98.3 F 76-94 18-22 113-158/62-90 92-99 GENERAL: The patient is awake, alert, and fully oriented, in no acute distress. LUNGS: Wheezing right base. Productive cough. HEART: Irregular. S1, S2 without murmur, rub or gallop. ABDOMEN: Soft, nontender, nondistended, normoactive bowel sounds, no guarding, no rebound EXTREMITIES: 2+ pulses, warm, well-perfused, 1+ bilateral edema NEUROLOGICAL: Cranial nerves II through XII grossly intact. Normal speech, gait not observed. Laboratory Results - last 24 hr 08/13/16 08/13/16 08/13/16 05:15 05:15 09:48 WBC 8.3 RBC 2.74 L Hgb 8.0 L Hct 24.0 L MCV 87.5 MCHC 33.4 RDW 17.4 H Plt Count 177 MPV 7.2 L Neutrophils % 85.9 H Lymphocytes % 7.0 L D Monocytes % 6.8 Eosinophils % 0.1 D Basophils % 0.2 Sodium 142 Potassium 3.5 Chloride 100 Carbon Dioxide 36 H Anion Gap 6 L BUN 44 H Creatinine 1.7 H Random Glucose 108 H Calcium 7.5 L Phosphorus 3.9 Magnesium 2.2 LD Total 174 Cancelled Active Medications Generic Name Dose Route Start Last Admin Trade Name Freq PRN Reason Stop Dose Admin Acetaminophen 650 mg 08/11/16 22:14 08/12/16 22:47 Tylenol - PO 650 mg Q6H PRN Administration PAIN Albuterol/Ipratropium 1 amp 08/12/16 00:00 08/13/16 17:13 Duoneb - NEB 1 amp QIDR [facility] Administration Amlodipine Besylate 10 mg 08/12/16 10:00 08/13/16 09:11 Norvasc - PO 10 mg DAILY [facility] Administration Apixaban 2.5 mg 08/11/16 22:00 08/13/16 09:21 Eliquis - PO 2.5 mg BID [facility] Administration Aspirin 81 mg 08/12/16 10:00 08/13/16 09:11 Ecotrin - PO 81 mg DAILY [facility] Administration Atorvastatin Calcium 20 mg 08/13/16 22:00 Lipitor - PO HS [facility] Bupropion HCl 150 mg 08/12/16 10:00 08/13/16 10:50 Wellbutrin Xl - PO 150 mg DAILY [facility] Administration Chlorhexidine Gluconate 1 applic 08/11/16 22:00 08/12/16 22:46 Hibiclens For Decolonization - TP 1 applic HS [facility] Administration Docusate Sodium 100 mg 08/11/16 22:00 08/13/16 09:09 Colace - PO 100 mg BID [facility] Administration Duloxetine HCl 60 mg 08/12/16 10:00 08/13/16 09:10 Cymbalta - PO 60 mg DAILY [facility] Administration Emollient Ointment 1 applic 08/12/16 10:00 08/13/16 09:14 Aquaphor - TP 1 applic BID [facility] Administration Epoetin Keith 10,000 unit 08/12/16 08:30 08/12/16 09:04 Procrit - SQ Not Given MoWeFr@1000 [facility] Ferrous Sulfate 325 mg 08/12/16 10:00 08/13/16 09:21 Feosol - PO 325 mg BID [facility] Administration Furosemide 80 mg 08/12/16 06:00 08/13/16 14:13 Lasix Injection - IVPUSH 80 mg BID@0600,1400 [facility] Administration Guaifenesin 10 ml 08/13/16 11:00 08/13/16 11:10 Robitussin Dm - PO 10 ml Q6H PRN Administration COUGH Meropenem 1 gm/ Dextrose 100 mls @ 100 mls/hr 08/12/16 18:00 08/13/16 17:15 IVPB 100 mls/hr Q8H-IV [facility] Administration Protocol Clindamycin Phosphate 50 mls @ 100 mls/hr 08/12/16 14:15 08/13/16 17:13 Cleocin 300 Mg Premix Ivpb IVPB 100 mls/hr Q8H-IV [facility] Administration Morphine Sulfate 2 mg 08/12/16 11:29 08/13/16 06:09 Morphine Injection - IVPUSH 2 mg Q4H PRN Administration PAIN Mupirocin 1 applic 08/11/16 22:00 08/13/16 09:15 Bactroban Ointment (For Decolonization) - NS 08/16/16 21:59 1 applic BID [facility] Administration Non-Formulary Medication 1 each 08/12/16 10:00 Fluticasone/Vilanterol [Breo Ellipta 100-25 Mcg Inh] IH DAILY [facility] Nystatin 1 applic 08/12/16 10:00 08/13/16 09:14 Nystop Powder - TP 1 applic DAILY [facility] Administration Pantoprazole Sodium 40 mg 08/12/16 10:00 08/13/16 09:11 Protonix - PO 40 mg DAILY [facility] Administration Prednisone 40 mg 08/12/16 10:00 08/13/16 09:10 Deltasone - PO 40 mg DAILY [facility] Administration Senna 2 tab 08/12/16 10:00 08/13/16 09:11 Senna - PO 2 tab DAILY [facility] Administration Tamsulosin HCl 0.4 mg 08/12/16 08:30 08/13/16 09:09 Flomax - PO 0.4 mg DAILY@0830 [facility] Administration ASSESSMENT/PLAN 75 year-old male with a significant PMH of HTN, HLD, CAD s/p stents x 2 (2014), diastolic heart failure, afib, COPD, respiratory failure requiring intubation ( 02/1016-04/2016), GI bleed, h/o DVT and PE. SNF resident. Admitted for respiratory failure, HCAP, left pleural effusion, and acute on chronic renal failure. Acute on chronic respiratory failure HCAP --satting 93% on 50% VM; productive cough, needs frequent suctioning --afebrile, no leukocytosis --meropenem (day #2) and clindamycin (day #2) --duonebs scheduled and PRN Large left pleural effusion --resolved after left pigtail placement, to LWS --small bilateral pleural effusions remain COPD exacerbation --continue prednisone, duonebs, inhaler Acute on chronic diastolic heart failure --BNP 3058 --continue aggressive IV lasix; fluid goal -500 to -1L Atrial fibrillation --rate to 112 today, start low dose metoprolol BID --continue Eliquis Acute on chronic renal failure --2.2 on admission, 1.7 today (baseline 1.5) Hypertension --BP well-controlled --continue amlodipine; starting metoprolol Hyperlipidemia --not on a statin CAD s/p stents --continue ASA h/o DVT and PE --on Eliquis F/E/N Fluids: PO intake adequate Electrolytes: replete as indicated Nutrition: diabetic, low sodium DVT prophylaxis: on Eliquis; oob, ambulation Physical therapy evaluation Dispo: continues to require ICU level care. Full Code. Visit type - Emergency Visit Emergency Visit: Yes ED Registration Date: 08/11/16 Care time: The patient presented to the Emergency Department on the above date and was hospitalized for further evaluation of their emergent condition. - New Patient This patient is new to me today: No - Critical Care Critical Care patient: Yes Total Critical Care Time (in minutes): 45 Critical Care Statement: The care of this patient involved high complexity decision making to prevent further life threatening deterioration of the patient 's condition and/or to evalute & treat vital organ system(s) failure or risk of failure.
[2016-08-13] MEDS ORDERED: ATORVASTATIN CA 20 MG TABLET (FP) PO SCH (22:00)
[2016-08-13] MEDS: METOPROLOL TARTRATE 25 MG TABLET (FP) PO SCH (22:39)
[2016-08-14] MEDS: CHLORHEXIDINE GLUCONATE 4% CLEANSER FOR DECOLONIZATION TP SCH ×2 (01:00→21:17)
[2016-08-14] MEDS ORDERED: PT OWN MED DRAWER 7, Y5N ONE ×2 (01:02→09:17)
[2016-08-14] MEDS: CLINDAMYCIN 300 MG PREMIX IVPB 50 ML IVPB SCH ×2 (01:03→09:25)
[2016-08-14] MEDS: MEROPENEM 1 GM in DEXTROSE 5%-WATER - 100 ML IVPB SCH ×2 (01:03→09:25)
[2016-08-14] MEDS: FUROSEMIDE 100 MG/10 ML INJECTABLE VIAL IVPUSH SCH (05:40)
[2016-08-14] MEDS: ALBUTEROL SO4 2.5/IPRATROPIUM 0.5 INH SOL 3 ML VIAL.NEB. NEB SCH ×3 (06:33→17:40)
[2016-08-14 06:53] LABS: MCH 29.2 pg (25.7-33.7); MCHC 33.2 g/dl (32.0-35.9); MEAN CELL VOLUME 87.9 fl (80-96); MEAN PLT VOLUME 6.9 fl (7.5-11.1); PLATELET COUNT 189 K/MM3 (134-434); RDW 17.3 % (11.9-15.9); WHITE BLOOD COUNT 9.5 K/mm3 (4.0-10.0)
[2016-08-14 07:20] LABS: CALCIUM 7.8 mg/dL (8.5-10.1); CREATININE 1.8 mg/dL (0.7-1.3); MAGNESIUM 2.3 mg/dL (1.8-2.4); PHOSPHOROUS 4.7 mg/dL (2.5-4.9)
[2016-08-14] MEDS: MINERAL OIL/PET HY-PHL TOPICAL OINTMENT 454 GM JAR TP SCH ×2 (09:20→21:13)
[2016-08-14] MEDS: NYSTATIN POWDER 100,000 UNITS/GM - 15 GM TOPICAL POWDER TP SCH (09:20)
[2016-08-14] MEDS: DOCUSATE SODIUM 100 MG CAPSULE (FP) PO SCH ×2 (09:21→21:17)
[2016-08-14] MEDS: ASPIRIN COATED 81 MG TABLET.EC PO SCH (09:21)
[2016-08-14] MEDS: APIXABAN 2.5 MG TABLET PO SCH ×2 (09:23→21:17)
[2016-08-14] MEDS: predniSONE 20 MG TABLET (UD) PO SCH (09:23)
[2016-08-14] MEDS: DULoxetine HCL 30 MG CAPSULE.DR (FP) PO SCH (09:23)
[2016-08-14] MEDS: amLODIPine BESYLATE 10 MG TABLET (FP) PO SCH (09:23)
[2016-08-14] MEDS: FERROUS SO4 325 MG TABLET (FP) PO SCH ×2 (09:23→21:17)
[2016-08-14] MEDS: TAMSULOSIN HCL 0.4 MG CAP.ER.24H (FP) PO SCH (09:23)
[2016-08-14] MEDS: PANTOPRAZOLE 40 MG TABLET (FP) PO SCH (09:23)
[2016-08-14] MEDS: METOPROLOL TARTRATE 25 MG TABLET (FP) PO SCH ×2 (09:23→21:18)
[2016-08-14] MEDS: EPOETIN ALFA 10,000 UNIT/1 ML VIAL SQ SCH (09:24)
[2016-08-14] MEDS: SENNOSIDES 8.6MG TABLET (FP) PO SCH (09:24)
[2016-08-14] MEDS: guaiFENesin/D-METHORPHAN HB 10 ML UNIT-DOSE CUPS PO PRN (09:25)
[2016-08-14] MEDS: MUPIROCIN 2% TOPICAL OINTMENT FOR DECOLONIZATION NS SCH ×2 (09:25→21:13)
--- NOTE | 2016-08-14 09:31 | PN ---
Physical Exam: SUBJECTIVE: Patient seen and examined at bedside in ICU. OBJECTIVE: Vital Signs Period Temp Pulse Resp BP Sys/[place]ona Pulse Ox Last 24 Hr 97.4 F-97.8 F 58-112 18-24 113-139/59-90 85-99 GENERAL: The patient is awake, alert, and fully oriented, in no acute distress. LUNGS: Diffuse rhochi and wheezing; + cough HEART: Regular, in sinus rhythm. S1, S2 without murmur, rub or gallop. ABDOMEN: Soft, nontender, nondistended, normoactive bowel sounds, no guarding, no rebound EXTREMITIES: 2+ pulses, warm, well-perfused, 1+ bilateral edema NEUROLOGICAL: Cranial nerves II through XII grossly intact. Normal speech, gait not observed. Laboratory Results - last 24 hr 08/13/16 08/13/16 08/13/16 05:15 09:48 16:36 WBC RBC Hgb Hct MCV MCHC RDW Plt Count MPV Sodium Potassium Chloride Carbon Dioxide Anion Gap BUN Creatinine POC Glucometer [id number] Random Glucose Calcium Phosphorus Magnesium LD Total 174 Cancelled B-Natriuretic Peptide 08/14/16 08/14/16 08/14/16 05:30 05:30 05:30 WBC 9.5 RBC 2.87 L Hgb 8.4 L Hct 25.2 L MCV 87.9 MCHC 33.2 RDW 17.3 H Plt Count 189 MPV 6.9 L Sodium 140 Potassium 3.7 Chloride 96 L Carbon Dioxide 37 H Anion Gap 7 L BUN 46 H Creatinine 1.8 H POC Glucometer Random Glucose 79 D Calcium 7.8 L Phosphorus 4.7 D Magnesium 2.3 LD Total B-Natriuretic Peptide 2698.12 H Active Medications Generic Name Dose Route Start Last Admin Trade Name Freq PRN Reason Stop Dose Admin Acetaminophen 650 mg 08/11/16 22:14 08/12/16 22:47 Tylenol - PO 650 mg Q6H PRN Administration PAIN Albuterol/Ipratropium 1 amp 08/12/16 00:00 08/14/16 06:33 Duoneb - NEB 1 amp QIDR [facility] Administration Amlodipine Besylate 10 mg 08/12/16 10:00 08/14/16 09:23 Norvasc - PO 10 mg DAILY [facility] Administration Apixaban 2.5 mg 08/11/16 22:00 08/14/16 09:23 Eliquis - PO 2.5 mg BID [facility] Administration Aspirin 81 mg 08/12/16 10:00 08/14/16 09:21 Ecotrin - PO 81 mg DAILY [facility] Administration Atorvastatin Calcium 20 mg 08/13/16 22:00 08/13/16 22:39 Lipitor - PO 20 mg HS [facility] Administration Bupropion HCl 150 mg 08/12/16 10:00 08/14/16 09:24 Wellbutrin Xl - PO 150 mg DAILY [facility] Administration Chlorhexidine Gluconate 1 applic 08/11/16 22:00 08/14/16 01:00 Hibiclens For Decolonization - TP Not Given HS [facility] Docusate Sodium 100 mg 08/11/16 22:00 08/14/16 09:21 Colace - PO 100 mg BID [facility] Administration Duloxetine HCl 60 mg 08/12/16 10:00 08/14/16 09:23 Cymbalta - PO 60 mg DAILY [facility] Administration Emollient Ointment 1 applic 08/12/16 10:00 08/14/16 09:20 Aquaphor - TP 1 applic BID [facility] Administration Epoetin Keith 10,000 unit 08/12/16 08:30 08/14/16 09:24 Procrit - SQ Not Given MoWeFr@1000 [facility] Ferrous Sulfate 325 mg 08/12/16 10:00 08/14/16 09:23 Feosol - PO 325 mg BID [facility] Administration Furosemide 80 mg 08/12/16 06:00 08/14/16 05:40 Lasix Injection - IVPUSH 80 mg BID@0600,1400 [facility] Administration Guaifenesin 10 ml 08/13/16 11:00 08/14/16 09:25 Robitussin Dm - PO 10 ml Q6H PRN Administration COUGH Meropenem 1 gm/ Dextrose 100 mls @ 100 mls/hr 08/12/16 18:00 08/14/16 09:25 IVPB 100 mls/hr Q8H-IV [facility] Administration Protocol Clindamycin Phosphate 50 mls @ 100 mls/hr 08/12/16 14:15 08/14/16 09:25 Cleocin 300 Mg Premix Ivpb IVPB 100 mls/hr Q8H-IV [facility] Administration Metoprolol Tartrate 25 mg 08/13/16 22:00 08/14/16 09:23 Lopressor - PO 25 mg BID [facility] Administration Morphine Sulfate 2 mg 08/12/16 11:29 08/13/16 06:09 Morphine Injection - IVPUSH 2 mg Q4H PRN Administration PAIN Mupirocin 1 applic 08/11/16 22:00 08/14/16 09:25 Bactroban Ointment (For Decolonization) - NS 08/16/16 21:59 1 applic BID [facility] Administration Non-Formulary Medication 1 each 08/12/16 10:00 Fluticasone/Vilanterol [Breo Ellipta 100-25 Mcg Inh] IH DAILY [facility] Nystatin 1 applic 08/12/16 10:00 08/14/16 09:20 Nystop Powder - TP 1 applic DAILY [facility] Administration Pantoprazole Sodium 40 mg 08/12/16 10:00 08/14/16 09:23 Protonix - PO 40 mg DAILY [facility] Administration Prednisone 40 mg 08/12/16 10:00 08/14/16 09:23 Deltasone - PO 40 mg DAILY [facility] Administration Senna 2 tab 08/12/16 10:00 08/14/16 09:24 Senna - PO 2 tab DAILY [facility] Administration Tamsulosin HCl 0.4 mg 08/12/16 08:30 08/14/16 09:23 Flomax - PO 0.4 mg DAILY@0830 [facility] Administration ASSESSMENT/PLAN 75 year-old male with a significant PMH of HTN, HLD, CAD s/p stents x 2 (2014), diastolic heart failure, afib, COPD, respiratory failure requiring intubation ( 02/1016-04/2016), GI bleed, h/o DVT and PE. SNF resident. Admitted for respiratory failure, HCAP, left pleural effusion, and acute on chronic renal failure. Acute on chronic respiratory failure HCAP --satting 100% on 50% VM; productive cough, needs frequent suctioning --afebrile, no leukocytosis --meropenem (day #2) and clindamycin (day #2) --duonebs scheduled and PRN Large left pleural effusion, resolved --pigtail removed yesterday, follow up CXR done, no pneumo --small bilateral pleural effusions persist COPD exacerbation --continue prednisone, duonebs, inhaler Acute on chronic diastolic heart failure --BNP 3058 --continue aggressive IV lasix; fluid goal -500 to -1L Paroxysmal atrial fibrillation --back in sinus rhythm --rate low 60s --continue low dose metoprolol --continue Eliquis Acute on chronic renal failure --2.2 on admission, 1.8 today (baseline 1.5) Hypertension --BP well-controlled --continue amlodipine, metoprolol Hyperlipidemia --not on a statin CAD s/p stents --continue ASA h/o DVT and PE --on Eliquis F/E/N Fluids: PO intake adequate Electrolytes: replete as indicated Nutrition: diabetic, low sodium DVT prophylaxis: on Eliquis; oob, ambulation Physical therapy evaluation Dispo: continues to require ICU level care. Full Code. Visit type - Emergency Visit Emergency Visit: Yes ED Registration Date: 08/11/16 Care time: The patient presented to the Emergency Department on the above date and was hospitalized for further evaluation of their emergent condition. - New Patient This patient is new to me today: No - Critical Care Critical Care patient: Yes Total Critical Care Time (in minutes): 35 Critical Care Statement: The care of this patient involved high complexity decision making to prevent further life threatening deterioration of the patient 's condition and/or to evalute & treat vital organ system(s) failure or risk of failure.
--- NOTE | 2016-08-14 11:55 | PN ---
Progress Note, Physician History of Present Illness: seen and examined this am in nad. states he is feeling better today but still "lousy". sob is improved after thoracentesis. - Current Medication List Current Medications: Active Medications Acetaminophen (Tylenol -) 650 mg PO Q6H PRN PRN Reason: PAIN Last Admin: 08/12/16 22:47 Dose: 650 mg Albuterol/Ipratropium (Duoneb -) 1 amp NEB QIDR [facility] Last Admin: 08/14/16 06:33 Dose: 1 amp Amlodipine Besylate (Norvasc -) 10 mg PO DAILY [facility] Last Admin: 08/14/16 09:23 Dose: 10 mg Apixaban (Eliquis -) 2.5 mg PO BID [facility] Last Admin: 08/14/16 09:23 Dose: 2.5 mg Aspirin (Ecotrin -) 81 mg PO DAILY [facility] Last Admin: 08/14/16 09:21 Dose: 81 mg Atorvastatin Calcium (Lipitor -) 20 mg PO [facility] Last Admin: 08/13/16 22:39 Dose: 20 mg Bupropion HCl (Wellbutrin Xl -) 150 mg PO DAILY [facility] Last Admin: 08/14/16 09:24 Dose: 150 mg Chlorhexidine Gluconate (Hibiclens For Decolonization -) 1 applic TP HS [facility] Last Admin: 08/14/16 01:00 Dose: Not Given Docusate Sodium (Colace -) 100 mg PO BID [facility] Last Admin: 08/14/16 09:21 Dose: 100 mg Duloxetine HCl (Cymbalta -) 60 mg PO DAILY [facility] Last Admin: 08/14/16 09:23 Dose: 60 mg Emollient Ointment (Aquaphor -) 1 applic TP BID [facility] Last Admin: 08/14/16 09:20 Dose: 1 applic Epoetin Keith (Procrit -) 10,000 unit SQ MoWeFr@1000 [facility] Last Admin: 08/14/16 09:24 Dose: Not Given Ferrous Sulfate (Feosol -) 325 mg PO BID [facility] Last Admin: 08/14/16 09:23 Dose: 325 mg Furosemide (Lasix Injection -) 80 mg IVPUSH BID@0600,1400 [facility] Last Admin: 08/14/16 05:40 Dose: 80 mg Guaifenesin (Robitussin Dm -) 10 ml PO Q6H PRN PRN Reason: COUGH Last Admin: 08/14/16 09:25 Dose: 10 ml Meropenem 1 gm/ Dextrose 100 mls @ 100 mls/hr IVPB Q8H-IV [facility] PRN Reason: Protocol Last Admin: 08/14/16 09:25 Dose: 100 mls/hr Clindamycin Phosphate (Cleocin 300 Mg Premix Ivpb) 50 mls @ 100 mls/hr IVPB Q8H -IV [facility] Last Admin: 08/14/16 09:25 Dose: 100 mls/hr Metoprolol Tartrate (Lopressor -) 25 mg PO BID [facility] Last Admin: 08/14/16 09:23 Dose: 25 mg Mupirocin (Bactroban Ointment (For Decolonization) -) 1 applic NS BID [facility] Stop: 08/16/16 21:59 Last Admin: 08/14/16 09:25 Dose: 1 applic Non-Formulary Medication (Fluticasone/Vilanterol [Breo Ellipta 100-25 Mcg Inh]) 1 each IH DAILY [facility] Nystatin (Nystop Powder -) 1 applic TP DAILY [facility] Last Admin: 08/14/16 09:20 Dose: 1 applic Pantoprazole Sodium (Protonix -) 40 mg PO DAILY [facility] Last Admin: 08/14/16 09:23 Dose: 40 mg Prednisone (Deltasone -) 40 mg PO DAILY [facility] Last Admin: 08/14/16 09:23 Dose: 40 mg Senna (Senna -) 2 tab PO DAILY [facility] Last Admin: 08/14/16 09:24 Dose: 2 tab Tamsulosin HCl (Flomax -) 0.4 mg PO DAILY@0830 [facility] Last Admin: 08/14/16 09:23 Dose: 0.4 mg - Objective Vital Signs: Vital Signs Temperature 97.4 F L 08/14/16 10:00 Pulse Rate 64 08/14/16 10:19 Respiratory Rate 22 08/14/16 10:00 Blood Pressure 109/63 08/14/16 10:00 O2 Sat by Pulse Oximetry (%) 100 08/14/16 10:19 Constitutional: Yes: No Distress, Calm, Obese Eyes: Yes: Conjunctiva Clear, EOM Intact, PERRL HENT: Yes: Atraumatic, Normocephalic Neck: Yes: Supple, Trachea Midline Cardiovascular: Yes: Regular Rate and Rhythm, S1, S2. No: Bradycardia, Tachycardia, Pulse Irregular, Bruit, JVD, Gallop, Murmur, Rub, S3, S4, Varicosities Respiratory: Yes: Regular, Diminished, On Nasal O2, Rales, Rhonchi. No: SOB, Wheezes Gastrointestinal: Yes: Normal Bowel Sounds, Soft, Distention, Tenderness Musculoskeletal: Yes: Muscle Weakness Edema: Yes Edema: LLE: Trace, RLE: Trace Peripheral Pulses WNL: Yes Peripheral Pulses: Left Doralis Pedis: 2+, Right Dorsalis Pedis: 2+ Integumentary: Yes: Venous Stasis Changes Neurological: Yes: Alert, Oriented Psychiatric: Yes: Alert, Oriented Labs: CBC, BMP 08/14/16 05:30 08/14/16 05:30 INR, PTT INR 1.13 (0.82-1.09) 08/11/16 18:20 - ....Imaging Chest X-ray: Report Reviewed, Image Reviewed EKG: Report Reviewed, Image Reviewed Other: Report Reviewed, Image Reviewed (tele-nsr, apcs, pvcs) Assessment/Plan 75 year old man with a history of HTN, COPD on home O2, Chronic combined systolic/diastolic CHF, CKD, JOY, CAD moderate LV systolic dysfunction, cardiac cath 03/2015 showed 2VD with RCA and LAD disease s/p PCI with ABDON of RCA 2014 and staged PCI of LAD in 04/2015 with significant improvement in symptoms for some time, followed by multiple admissions for respiratory failure, sepsis, KARLOS, has been in NH, recently tx for presumed PNA, admitted with sob and recurrent pleural effusions. SOB-multifactorial, PNA, AE COPD, pleural effusions, acute on chronic combined systolic/diastolic CHF -s/p thoracentesis with improvement in symptoms, as per report pleural fluid appeared transudative -does not appear severely volume overloaded from baseline but will cont his current trial of diuresis for now -monitor strict I/Os and daily weights -monitor BUN/Creat, electrolytes, keep k=4, Mg=2 -cont Lopressor 25mg bid -not on PIPER-I currently due to fluctuating renal function in the past -last echo 05/2016 showed normal LV systolic function, no sig valvular abnl -receiving steroids and Abx CAD-PCI with ABDON of RCA 03/2015 and staged PCI of LAD in 04/2015 -echo as above -cont ASA -cont lipitor -cont lopressor if tolerates from a copd standpoint DVT-LLE -on eliquis -need to clarify when this was diagnosed
[2016-08-14] MEDS ORDERED: guaiFENesin/D-METHORPHAN HB 10 ML UNIT-DOSE CUPS PO PRN (13:23)
[2016-08-14] MEDS ORDERED: ACETAMINOPHEN 325 MG TABLET (FP) PO PRN (13:23)
[2016-08-14] MEDS ORDERED: FUROSEMIDE 100 MG/10 ML INJECTABLE VIAL IVPUSH SCH (14:00)
--- NOTE | 2016-08-14 15:15 | PN ---
Teaching Attending Note Name of Resident: Jenelle Nava ATTENDING PHYSICIAN STATEMENT I saw and evaluated the patient. I reviewed the resident's note and discussed the case with the resident. I agree with the resident's findings and plan as documented. SUBJECTIVE: Patient seen and examined in the ICU. Awake and alert. Congested cough. Denies CP. Still requiring 50% VM O2. Intake & Output 08/11/16 08/12/16 08/13/16 08/14/16 23:59 23:59 23:59 23:59 Intake Total 475 2750 1500 490 Output Total 1400 3760 1910 1800 Balance -925 -1010 -410 -1310 Weight 223 lb 12.307 oz 220 lb 0.341 oz 220 lb 0.341 oz 221 lb 1.978 oz Last Vital Signs Temp Pulse Resp BP Pulse Ox 97.3 F L 66 23 111/65 99 08/14/16 14:00 08/14/16 14:00 08/14/16 14:00 08/14/16 14:00 08/14/16 12:47 Active Medications Acetaminophen (Tylenol -) 650 mg PO Q6H PRN PRN Reason: PAIN Albuterol/Ipratropium (Duoneb -) 1 amp NEB QIDR [facility] Amlodipine Besylate (Norvasc -) 10 mg PO DAILY [facility] Apixaban (Eliquis -) 2.5 mg PO BID [facility] Aspirin (Ecotrin -) 81 mg PO DAILY [facility] Atorvastatin Calcium (Lipitor -) 20 mg PO HS [facility] Bupropion HCl (Wellbutrin Xl -) 150 mg PO DAILY [facility] Chlorhexidine Gluconate (Hibiclens For Decolonization -) 1 applic TP HS [facility] Docusate Sodium (Colace -) 100 mg PO BID [facility] Duloxetine HCl (Cymbalta -) 60 mg PO DAILY [facility] Emollient Ointment (Aquaphor -) 1 applic TP BID [facility] Epoetin Keith (Procrit -) 10,000 unit SQ MoWeFr@1000 [facility] Ferrous Sulfate (Feosol -) 325 mg PO BID [facility] Furosemide (Lasix Injection -) 80 mg IVPUSH BID@0600,1400 [facility] Guaifenesin (Robitussin Dm -) 10 ml PO Q6H PRN PRN Reason: COUGH Metoprolol Tartrate (Lopressor -) 25 mg PO BID [facility] Mupirocin (Bactroban Ointment (For Decolonization) -) 1 applic NS BID [facility] Stop: 08/16/16 21:59 Non-Formulary Medication (Fluticasone/Vilanterol [Breo Ellipta 100-25 Mcg Inh]) 1 each IH DAILY [facility] Nystatin (Nystop Powder -) 1 applic TP DAILY [facility] Pantoprazole Sodium (Protonix -) 40 mg PO DAILY [facility] Polyethylene Glycol (Miralax (For Daily Use) -) 17 gm PO DAILY [facility] Prednisone (Deltasone -) 40 mg PO DAILY [facility] Senna (Senna -) 2 tab PO DAILY [facility] Tamsulosin HCl (Flomax -) 0.4 mg PO DAILY@0830 [facility] General: awake, alert, responsive, mildly tachypneic at rest HEENT: PERRL CV: Irregular Pulm: Diminished in bases, scattered rhonchi Abd: obese, Soft, NT, ND, +BS Ext: LE +4 edema, chronic venous stasis changes, mild errythemia Neuro: grossly intact Laboratory Results - last 24 hr 08/13/16 08/14/16 08/14/16 16:36 05:30 05:30 WBC 9.5 RBC 2.87 L Hgb 8.4 L Hct 25.2 L MCV 87.9 MCHC 33.2 RDW 17.3 H Plt Count 189 MPV 6.9 L Sodium 140 Potassium 3.7 Chloride 96 L Carbon Dioxide 37 H Anion Gap 7 L BUN 46 H Creatinine 1.8 H POC Glucometer 188.40906 Random Glucose 79 D Calcium 7.8 L Phosphorus 4.7 D Magnesium 2.3 B-Natriuretic Peptide 08/14/16 08/14/16 05:30 06:07 WBC RBC Hgb Hct MCV MCHC RDW Plt Count MPV Sodium Potassium Chloride Carbon Dioxide Anion Gap BUN Creatinine POC Glucometer 98.27178 Random Glucose Calcium Phosphorus Magnesium B-Natriuretic Peptide 2698.12 H Problem List - Problems (1) Acute and chronic respiratory failure with hypoxia Code(s): J96.21 - ACUTE AND CHRONIC RESPIRATORY FAILURE WITH HYPOXIA (2) Pneumonia Code(s): J18.9 - PNEUMONIA, UNSPECIFIED ORGANISM Qualifiers: Pneumonia type: due to unspecified organism Laterality: left Lung location: lower lobe of lung Qualified Code(s): J18.1 - Lobar pneumonia, unspecified organism (3) Pleural effusion Code(s): J90 - PLEURAL EFFUSION, NOT ELSEWHERE CLASSIFIED (4) Acute on chronic diastolic (congestive) heart failure Code(s): I50.33 - ACUTE ON CHRONIC DIASTOLIC (CONGESTIVE) HEART FAILURE (5) COPD (chronic obstructive pulmonary disease) Code(s): J44.9 - CHRONIC OBSTRUCTIVE PULMONARY DISEASE, UNSPECIFIED (6) Renal failure (ARF), acute on chronic Code(s): N17.9 - ACUTE KIDNEY FAILURE, UNSPECIFIED N18.9 - CHRONIC KIDNEY DISEASE, UNSPECIFIED (7) Diabetes Code(s): E11.9 - TYPE 2 DIABETES MELLITUS WITHOUT COMPLICATIONS Qualifiers: Diabetes mellitus type: type 2 Diabetes mellitus complication status: with kidney complications Diabetes mellitus complication detail: with chronic kidney disease (8) Atrial fibrillation Code(s): I48.91 - UNSPECIFIED ATRIAL FIBRILLATION Assessment/Plan 50% venti-mask NIPPV QHS/PRN ABX BD TX Prednisone AC Glycemic control PPI Lasix Cardiac Telemetry monitoring Dr Vasquez critical care time spent in reviewing chart, evaluating patient and formulating plan 38 min
[2016-08-14] MEDS: POLYETHYLENE GLYCOL 3350 119 GM BTL PO SCH (15:26)
--- NOTE | 2016-08-14 17:19 | PN ---
Physical Exam: SUBJECTIVE: Patient seen and examined. He is complaining of cough that is present for 10 days. He is coughing up yellow/white sputum. He denies fever, chills. He is feeling better since he came to ED. OBJECTIVE: Vital Signs Period Temp Pulse Resp BP Sys/[place] Pulse Ox Last 24 Hr 97.3 F-97.8 F 58-112 19-26 108-137/59-84 85-100 GENERAL: The patient is awake, alert, and fully oriented, in no acute distress. HEAD: Normal with no signs of trauma. EYES: PERRL, conjunctiva clear. ENT: Ears normal, nares patent, moist mucous membranes. NECK: Trachea midline, full range of motion, supple. LUNGS: Breath sounds equal, diminished B/L, no crackles, no accessory muscle use. HEART: Regular rate and rhythm, S1, S2 without murmur, rub or gallop. ABDOMEN: Soft, nontender, nondistended, normoactive bowel sounds, no guarding, no rebound, no masses. EXTREMITIES: 2+ pulses, warm, well-perfused, 1+ LE edema. NEUROLOGICAL:No facial asymmetry, normal speech, gait not observed. PSYCH: Normal mood, normal affect. SKIN: Warm, dry, normal turgor, lower extremities venous stasis changes B/L. Laboratory Results - last 24 hr 08/13/16 08/14/16 08/14/16 16:36 05:30 05:30 WBC 9.5 RBC 2.87 L Hgb 8.4 L Hct 25.2 L MCV 87.9 MCHC 33.2 RDW 17.3 H Plt Count 189 MPV 6.9 L Sodium 140 Potassium 3.7 Chloride 96 L Carbon Dioxide 37 H Anion Gap 7 L BUN 46 H Creatinine 1.8 H POC Glucometer 188.21939 Random Glucose 79 D Calcium 7.8 L Phosphorus 4.7 D Magnesium 2.3 B-Natriuretic Peptide 08/14/16 08/14/16 05:30 06:07 WBC RBC Hgb Hct MCV MCHC RDW Plt Count MPV Sodium Potassium Chloride Carbon Dioxide Anion Gap BUN Creatinine POC Glucometer 98.49137 Random Glucose Calcium Phosphorus Magnesium B-Natriuretic Peptide 2698.12 H Active Medications Generic Name Dose Route Start Last Admin Trade Name Freq PRN Reason Stop Dose Admin Acetaminophen 650 mg 08/14/16 13:23 Tylenol - PO Q6H PRN PAIN Albuterol/Ipratropium 1 amp 08/14/16 18:00 Duoneb - NEB QIDR [facility] Amlodipine Besylate 10 mg 08/15/16 10:00 Norvasc - PO DAILY [facility] Apixaban 2.5 mg 08/14/16 22:00 Eliquis - PO BID [facility] Aspirin 81 mg 08/15/16 10:00 Ecotrin - PO DAILY [facility] Atorvastatin Calcium 20 mg 08/14/16 22:00 Lipitor - PO HS [facility] Bupropion HCl 150 mg 08/15/16 10:00 Wellbutrin Xl - PO DAILY [facility] Chlorhexidine Gluconate 1 applic 08/14/16 22:00 Hibiclens For Decolonization - TP HS [facility] Docusate Sodium 100 mg 08/14/16 22:00 Colace - PO BID [facility] Duloxetine HCl 60 mg 08/15/16 10:00 Cymbalta - PO DAILY [facility] Emollient Ointment 1 applic 08/14/16 22:00 Aquaphor - TP BID [facility] Epoetin Keith 10,000 unit 08/16/16 10:00 Procrit - SQ MoWeFr@1000 [facility] Ferrous Sulfate 325 mg 08/14/16 22:00 Feosol - PO BID [facility] Furosemide 80 mg 08/14/16 14:00 08/14/16 15:26 Lasix Injection - IVPUSH 80 mg BID@0600,1400 [facility] Administration Guaifenesin 10 ml 08/14/16 13:23 Robitussin Dm - PO Q6H PRN COUGH Metoprolol Tartrate 25 mg 08/14/16 22:00 Lopressor - PO BID [facility] Mupirocin 1 applic 08/14/16 22:00 Bactroban Ointment (For Decolonization) - NS 08/16/16 21:59 BID [facility] Non-Formulary Medication 1 each 08/15/16 10:00 Fluticasone/Vilanterol [Breo Ellipta 100-25 Mcg Inh] IH DAILY [facility] Nystatin 1 applic 08/15/16 10:00 Nystop Powder - TP DAILY [facility] Pantoprazole Sodium 40 mg 08/15/16 10:00 Protonix - PO DAILY [facility] Polyethylene Glycol 17 gm 08/14/16 15:15 08/14/16 15:26 Miralax (For Daily Use) - PO 17 grams DAILY [facility] Administration Prednisone 40 mg 08/15/16 10:00 Deltasone - PO DAILY [facility] Senna 2 tab 08/15/16 10:00 Senna - PO DAILY [facility] Tamsulosin HCl 0.4 mg 08/15/16 08:30 Flomax - PO DAILY@0830 [facility] Microbiology 08/12/16 06:00 Sputum - Expectorated Gram Stain - Final 08/12/16 06:00 Sputum - Expectorated Sputum Culture - Final NORMAL RESPIRATORY FAWN 08/12/16 00:00 Pleural Fluid Gram Stain - Final 08/12/16 00:00 Pleural Fluid Body Fluid Culture - Final NO GROWTH OF AEROBIC ORGANISMS AFTER 48 HOURS INCUBATION 08/12/16 00:00 Pleural Fluid Anaerobic Culture - Final NO ANAEROBES WERE ISOLATED 08/11/16 18:20 Blood - Peripheral Venous Blood Culture - Preliminary NO GROWTH OBTAINED AFTER 48 HOURS, INCUBATION TO CONTINUE FOR 3 DAYS. 08/11/16 18:20 Blood - Peripheral Venous Blood Culture - Preliminary NO GROWTH OBTAINED AFTER 48 HOURS, INCUBATION TO CONTINUE FOR 3 DAYS. 08/11/16 16:55 Urine - Urine - Catheterized Urine Culture - Final NO GROWTH OBTAINED 08/12/16 06:00 Nasopharyngeal Swab Respiratory Virus (PCR) - Preliminary 08/12/16 12:00 Urine - Urine Clifford Legionella Antigen - Final 08/12/16 12:00 Urine - Urine Clifford Streptococcus pneumoniae Antigen (M - Final ASSESSMENT/PLAN: 75 year old man with a history of HTN, COPD on home O2, chronic systolic/ diastolic CHF, CKD, OJY, CAD s/p 2 stents, GI bleed, GERD, , TIA, anemia, multiple admissions for respiratory failure, sepsis, KARLOS, has been in [place], recently tx for presumed PNA, admitted with sob and recurrent pleural effusions and cough. Pulmonary; SOB-multifactorial, PNA, COPD, pleural effusions, -s/p thoracentesis, fluid appeared transudative -duonebs scheduled and PRN -follow up CXR COPD exacerbation -continue prednisone, duonebs, inhaler CVA: -does not appear severely volume overloaded, will continue diuresis -monitor strict I/Os and daily weights -cont Lopressor 25mg bid -not on PIPER-I currently due to fluctuating renal function in the past -cont ASA -cont lipitor -cont lopressor ID: -stopped antibiotics Nephro: -monitor BUN/Creat, electrolytes, keep k=4, Mg=2 -last echo 05/2016 showed normal LV systolic function, no sig valvular abnl -receiving steroids and Abx DVT -on eliquis Disposition: pending transfer to [facility] surg Visit type - Emergency Visit Emergency Visit: Yes ED Registration Date: 08/11/16 Care time: The patient presented to the Emergency Department on the above date and was hospitalized for further evaluation of their emergent condition. - New Patient This patient is new to me today: No - Critical Care Critical Care patient: Yes Total Critical Care Time (in minutes): 30 Critical Care Statement: The care of this patient involved high complexity decision making to prevent further life threatening deterioration of the patient 's condition and/or to evalute & treat vital organ system(s) failure or risk of failure.
[2016-08-14] MEDS ORDERED: CLINDAMYCIN 300 MG PREMIX IVPB 50 ML IVPB SCH (18:00)
[2016-08-14] MEDS ORDERED: MEROPENEM 1 GM in DEXTROSE 5%-WATER - 100 ML IVPB SCH (18:00)
[2016-08-14] MEDS ORDERED: ALBUTEROL SO4 2.5/IPRATROPIUM 0.5 INH SOL 3 ML VIAL.NEB. NEB SCH (18:00)
--- NOTE | 2016-08-14 18:30 | PN ---
Progress Note, Physician History of Present Illness: Pt alert and oriented. Cough productive of yellow sputum. NAD - Current Medication List Current Medications: Active Medications Acetaminophen (Tylenol -) 650 mg PO Q6H PRN PRN Reason: PAIN Albuterol/Ipratropium (Duoneb -) 1 amp NEB QIDR [facility] Last Admin: 08/14/16 17:40 Dose: 1 amp Amlodipine Besylate (Norvasc -) 10 mg PO DAILY [facility] Apixaban (Eliquis -) 2.5 mg PO BID [facility] Aspirin (Ecotrin -) 81 mg PO DAILY [facility] Atorvastatin Calcium (Lipitor -) 20 mg PO HS [facility] Bupropion HCl (Wellbutrin Xl -) 150 mg PO DAILY [facility] Chlorhexidine Gluconate (Hibiclens For Decolonization -) 1 applic TP HS [facility] Docusate Sodium (Colace -) 100 mg PO BID [facility] Duloxetine HCl (Cymbalta -) 60 mg PO DAILY [facility] Emollient Ointment (Aquaphor -) 1 applic TP BID [facility] Epoetin Keith (Procrit -) 10,000 unit SQ MoWeFr@1000 [facility] Ferrous Sulfate (Feosol -) 325 mg PO BID [facility] Furosemide (Lasix Injection -) 80 mg IVPUSH BID@0600,1400 [facility] Guaifenesin (Robitussin Dm -) 10 ml PO Q6H PRN PRN Reason: COUGH Metoprolol Tartrate (Lopressor -) 25 mg PO BID [facility] Mupirocin (Bactroban Ointment (For Decolonization) -) 1 applic NS BID [facility] Stop: 08/16/16 21:59 Non-Formulary Medication (Fluticasone/Vilanterol [Breo Ellipta 100-25 Mcg Inh]) 1 each IH DAILY [facility] Nystatin (Nystop Powder -) 1 applic TP DAILY [facility] Pantoprazole Sodium (Protonix -) 40 mg PO DAILY [facility] Polyethylene Glycol (Miralax (For Daily Use) -) 17 gm PO DAILY [facility] Last Admin: 08/14/16 15:26 Dose: 17 grams Prednisone (Deltasone -) 40 mg PO DAILY [facility] Senna (Senna -) 2 tab PO DAILY [facility] Tamsulosin HCl (Flomax -) 0.4 mg PO DAILY@0830 [facility] - Objective Vital Signs: Vital Signs Temperature 97.3 F L 08/14/16 14:00 Pulse Rate 78 08/14/16 16:00 Respiratory Rate 22 08/14/16 16:00 Blood Pressure 101/62 08/14/16 16:00 O2 Sat by Pulse Oximetry (%) 96 08/14/16 17:13 Constitutional: Yes: No Distress Eyes: No: Sclera Icterus HENT: Yes: Atraumatic, Normocephalic Neck: Yes: Supple, Trachea Midline Cardiovascular: Yes: Pulse Irregular. No: JVD Respiratory: Yes: Diminished (bilateral) Gastrointestinal: Yes: Soft. No: Tenderness Extremities: Yes: Other (stasis changes) Edema: Yes Edema: LLE: 4+, RLE: 4+ Neurological: Yes: Oriented Labs: CBC, BMP 08/14/16 05:30 08/14/16 05:30 INR, PTT INR 1.13 (0.82-1.09) 08/11/16 18:20 - ....Imaging Chest X-ray: Report Reviewed, Image Reviewed (CXR 08/13-no pntx, Cm) Problem List - Problems (1) Acute and chronic respiratory failure with hypoxia Code(s): J96.21 - ACUTE AND CHRONIC RESPIRATORY FAILURE WITH HYPOXIA (2) Atrial fibrillation Code(s): I48.91 - UNSPECIFIED ATRIAL FIBRILLATION (3) Pleural effusion Code(s): J90 - PLEURAL EFFUSION, NOT ELSEWHERE CLASSIFIED (4) Pneumonia Code(s): J18.9 - PNEUMONIA, UNSPECIFIED ORGANISM Qualifiers: Pneumonia type: due to unspecified organism Laterality: left Lung location: lower lobe of lung Qualified Code(s): J18.1 - Lobar pneumonia, unspecified organism (5) Acute on chronic diastolic (congestive) heart failure Code(s): I50.33 - ACUTE ON CHRONIC DIASTOLIC (CONGESTIVE) HEART FAILURE Assessment/Plan 75 year old male with acute on chronic hypercapnic, hypoxic respiratory failure , pneumonia (hx of MRSA sepsis) and acute exacerbation COPD and obesity. Hx DVT and pt on anticoagulation. Pt improved but still has productive cough and dyspnea. He plans to go on NIPPV tonight as he didn't last night and felt more dyspneic today. Suggest: Antibiotics per I.D. Diuretic Prednisone taper Inhaled bronchodilators O2 to maintain SaO2 greater than 90. NIPPV at night and PRN
--- NOTE | 2016-08-14 20:10 | PN ---
Progress Note, Physician History of Present Illness: still not feeling better on bipap still producing sputum yellowish patients erythema on the legs ahve improved a lot - Current Medication List Current Medications: Active Medications Acetaminophen (Tylenol -) 650 mg PO Q6H PRN PRN Reason: PAIN Albuterol/Ipratropium (Duoneb -) 1 amp NEB QIDR [facility] Last Admin: 08/14/16 17:40 Dose: 1 amp Amlodipine Besylate (Norvasc -) 10 mg PO DAILY [facility] Apixaban (Eliquis -) 2.5 mg PO BID [facility] Aspirin (Ecotrin -) 81 mg PO DAILY [facility] Atorvastatin Calcium (Lipitor -) 20 mg PO HS [facility] Bupropion HCl (Wellbutrin Xl -) 150 mg PO DAILY [facility] Chlorhexidine Gluconate (Hibiclens For Decolonization -) 1 applic TP HS [facility] Clindamycin HCl (Cleocin -) 300 mg PO Q6HPO [facility] Docusate Sodium (Colace -) 100 mg PO BID [facility] Duloxetine HCl (Cymbalta -) 60 mg PO DAILY [facility] Emollient Ointment (Aquaphor -) 1 applic TP BID [facility] Epoetin Keith (Procrit -) 10,000 unit SQ MoWeFr@1000 [facility] Ferrous Sulfate (Feosol -) 325 mg PO BID [facility] Furosemide (Lasix Injection -) 80 mg IVPUSH BID@0600,1400 [facility] Guaifenesin (Robitussin Dm -) 10 ml PO Q6H PRN PRN Reason: COUGH Ertapenem 1 gm/ Sodium (Chloride) 50 mls @ 50 mls/hr IVPB DAILY [facility] PRN Reason: Protocol Metoprolol Tartrate (Lopressor -) 25 mg PO BID [facility] Mupirocin (Bactroban Ointment (For Decolonization) -) 1 applic NS BID [facility] Stop: 08/16/16 21:59 Non-Formulary Medication (Fluticasone/Vilanterol [Breo Ellipta 100-25 Mcg Inh]) 1 each IH DAILY [facility] Nystatin (Nystop Powder -) 1 applic TP DAILY [facility] Pantoprazole Sodium (Protonix -) 40 mg PO DAILY [facility] Polyethylene Glycol (Miralax (For Daily Use) -) 17 gm PO DAILY [facility] Last Admin: 08/14/16 15:26 Dose: 17 grams Prednisone (Deltasone -) 40 mg PO DAILY [facility] Senna (Senna -) 2 tab PO DAILY [facility] Tamsulosin HCl (Flomax -) 0.4 mg PO DAILY@0830 [facility] - Objective Vital Signs: Vital Signs Temperature 97.3 F L 08/14/16 14:00 Pulse Rate 78 08/14/16 16:00 Respiratory Rate 22 08/14/16 16:00 Blood Pressure 101/62 08/14/16 16:00 O2 Sat by Pulse Oximetry (%) 96 08/14/16 17:13 Constitutional: Yes: Calm, Mild Distress Neck: Yes: Supple Cardiovascular: Yes: Pulse Irregular Respiratory: Yes: On BiPap, Poor Air Entry, Rhonchi Gastrointestinal: Yes: Normal Bowel Sounds, Soft Musculoskeletal: Yes: Other Extremities: Yes: Other Integumentary: Yes: Erythema (improving) Neurological: Yes: Alert, Oriented Psychiatric: Yes: Alert, Oriented Labs: CBC, BMP 08/14/16 05:30 08/14/16 05:30 INR, PTT INR 1.13 (0.82-1.09) 08/11/16 18:20 - ....Imaging Chest X-ray: Report Reviewed, Image Reviewed Assessment/Plan Problem List - Problems (1) Acute and chronic respiratory failure with hypoxia Code(s): J96.21 - ACUTE AND CHRONIC RESPIRATORY FAILURE WITH HYPOXIA (2) Pneumonia Code(s): J18.9 - PNEUMONIA, UNSPECIFIED ORGANISM Qualifiers: Pneumonia type: due to unspecified organism Laterality: left Lung location: lower lobe of lung Qualified Code(s): J18.1 - Lobar pneumonia, unspecified organism (3) Pleural effusion Code(s): J90 - PLEURAL EFFUSION, NOT ELSEWHERE CLASSIFIED (4) Acute on chronic diastolic (congestive) heart failure Code(s): I50.33 - ACUTE ON CHRONIC DIASTOLIC (CONGESTIVE) HEART FAILURE (5) COPD (chronic obstructive pulmonary disease) Code(s): J44.9 - CHRONIC OBSTRUCTIVE PULMONARY DISEASE, UNSPECIFIED (6) Renal failure (ARF), acute on chronic Code(s): N17.9 - ACUTE KIDNEY FAILURE, UNSPECIFIED N18.9 - CHRONIC KIDNEY DISEASE, UNSPECIFIED (7) Diabetes Code(s): E11.9 - TYPE 2 DIABETES MELLITUS WITHOUT COMPLICATIONS Qualifiers: Diabetes mellitus type: type 2 Diabetes mellitus complication status: with kidney complications Diabetes mellitus complication detail: with chronic kidney disease (8) Atrial fibrillation Code(s): I48.91 - UNSPECIFIED ATRIAL FIBRILLATION 9 bilateral cellulitis of the legs this patient is a very fragile patient although his sputum culture is not that impressive it still shows gram psoitive cocci and his history of mrsa pneumonia makes hime a very high risk plan abx started resp support all cx reports noted elevation of the leg continue as per pul icu cc time 40 min
[2016-08-14] MEDS: ATORVASTATIN CA 20 MG TABLET (FP) PO SCH (21:17)
[2016-08-14] MEDS ORDERED: DOCUSATE SODIUM 100 MG CAPSULE (FP) PO SCH (22:00)
[2016-08-14] MEDS ORDERED: MINERAL OIL/PET HY-PHL TOPICAL OINTMENT 454 GM JAR TP SCH (22:00)
[2016-08-14] MEDS ORDERED: METOPROLOL TARTRATE 25 MG TABLET (FP) PO SCH (22:00)
[2016-08-14] MEDS ORDERED: MUPIROCIN 2% TOPICAL OINTMENT FOR DECOLONIZATION NS SCH (22:00)
[2016-08-14] MEDS ORDERED: FERROUS SO4 325 MG TABLET (FP) PO SCH (22:00)
[2016-08-14] MEDS ORDERED: ATORVASTATIN CA 20 MG TABLET (FP) PO SCH (22:00)
[2016-08-14] MEDS ORDERED: APIXABAN 2.5 MG TABLET PO SCH (22:00)
[2016-08-14] MEDS ORDERED: CHLORHEXIDINE GLUCONATE 4% CLEANSER FOR DECOLONIZATION TP SCH (22:00)
[2016-08-15] MEDS: ALBUTEROL SO4 2.5/IPRATROPIUM 0.5 INH SOL 3 ML VIAL.NEB. NEB SCH ×5 (00:20→18:26)
[2016-08-15] MEDS: CLINDAMYCIN HCL 150 MG CAPSULE (FP) PO SCH ×4 (01:00→18:30)
[2016-08-15] MEDS ORDERED: PT OWN MED DRAWER 7, Y5N ONE ×3 (03:41→09:15)
[2016-08-15] MEDS: FUROSEMIDE 100 MG/10 ML INJECTABLE VIAL IVPUSH SCH ×2 (06:10→13:24)
--- NOTE | 2016-08-15 08:07 | PN ---
Physical Exam: SUBJECTIVE: Patient seen and examined at bedside in ICU. OBJECTIVE: Vital Signs Period Temp Pulse Resp BP Sys/[place] Pulse Ox Last 24 Hr 97.3 F-98 F 56-78 18-26 101-141/61-78 92-100 GENERAL: The patient is awake, alert, and fully oriented, in no acute distress. LUNGS: Diffuse rhochi and wheezing; + cough HEART: Regular, in sinus rhythm. S1, S2 without murmur, rub or gallop. ABDOMEN: Soft, nontender, nondistended, normoactive bowel sounds, no guarding, no rebound EXTREMITIES: 2+ pulses, warm, well-perfused, 1+ bilateral edema NEUROLOGICAL: Cranial nerves II through XII grossly intact. Normal speech, gait not observed. Active Medications Generic Name Dose Route Start Last Admin Trade Name Freq PRN Reason Stop Dose Admin Acetaminophen 650 mg 08/14/16 17:14 Tylenol - PO Q6H PRN PAIN Albuterol/Ipratropium 1 amp 08/14/16 18:00 08/15/16 06:16 Duoneb - NEB 1 amp QIDR [facility] Administration Amlodipine Besylate 10 mg 08/15/16 10:00 Norvasc - PO DAILY [facility] Apixaban 2.5 mg 08/14/16 22:00 08/14/16 21:17 Eliquis - PO 2.5 mg BID [facility] Administration Aspirin 81 mg 08/15/16 10:00 Ecotrin - PO DAILY [facility] Atorvastatin Calcium 20 mg 08/14/16 22:00 08/14/16 21:17 Lipitor - PO 20 mg HS [facility] Administration Bupropion HCl 150 mg 08/15/16 10:00 Wellbutrin Xl - PO DAILY [facility] Chlorhexidine Gluconate 1 applic 08/14/16 22:00 08/14/16 21:17 Hibiclens For Decolonization - TP 1 applic HS [facility] Administration Clindamycin HCl 300 mg 08/15/16 00:00 08/15/16 06:10 Cleocin - PO 300 mg Q6HPO [facility] Administration Docusate Sodium 100 mg 08/14/16 22:00 08/14/16 21:17 Colace - PO 100 mg BID [facility] Administration Duloxetine HCl 60 mg 08/15/16 10:00 Cymbalta - PO DAILY [facility] Emollient Ointment 1 applic 08/14/16 22:00 08/14/16 21:13 Aquaphor - TP 1 applic BID [facility] Administration Epoetin Keith 10,000 unit 08/16/16 10:00 Procrit - SQ MoWeFr@1000 [facility] Ferrous Sulfate 325 mg 08/14/16 22:00 08/14/16 21:17 Feosol - PO 325 mg BID [facility] Administration Furosemide 80 mg 08/15/16 06:00 08/15/16 06:10 Lasix Injection - IVPUSH 80 mg BID@0600,1400 [facility] Administration Guaifenesin 10 ml 08/14/16 17:14 Robitussin Dm - PO Q6H PRN COUGH Ertapenem 1 gm/ Sodium 50 mls @ 50 mls/hr 08/15/16 10:00 Chloride IVPB DAILY [facility] Protocol Metoprolol Tartrate 25 mg 08/14/16 22:00 08/14/16 21:18 Lopressor - PO 25 mg BID [facility] Administration Mupirocin 1 applic 08/14/16 22:00 08/14/16 21:13 Bactroban Ointment (For Decolonization) - NS 08/16/16 21:59 1 applic BID [facility] Administration Non-Formulary Medication 1 each 08/15/16 10:00 Fluticasone/Vilanterol [Breo Ellipta 100-25 Mcg Inh] IH DAILY [facility] Nystatin 1 applic 08/15/16 10:00 Nystop Powder - TP DAILY [facility] Pantoprazole Sodium 40 mg 08/15/16 10:00 Protonix - PO DAILY [facility] Polyethylene Glycol 17 gm 08/14/16 15:15 08/14/16 15:26 Miralax (For Daily Use) - PO 17 grams DAILY [facility] Administration Prednisone 40 mg 08/15/16 10:00 Deltasone - PO DAILY [facility] Senna 2 tab 08/15/16 10:00 Senna - PO DAILY [facility] Tamsulosin HCl 0.4 mg 08/15/16 08:30 Flomax - PO DAILY@0830 [facility] ASSESSMENT/PLAN 75 year-old male with a significant PMH of HTN, HLD, CAD s/p stents x 2 (2014), diastolic heart failure, afib, COPD, respiratory failure requiring intubation ( 02/1016-04/2016), GI bleed, h/o DVT and PE. SNF resident. Admitted for respiratory failure, HCAP, left pleural effusion, and acute on chronic renal failure. Acute on chronic respiratory failure HCAP --satting 98% on 60% VM; discussed with distribution agent, this is patient's baseline --afebrile, no leukocytosis --meropenem (day #3) and clindamycin (day #3) --duonebs scheduled and PRN Large left pleural effusion, resolved --pigtail removed 08/14, follow up CXR, no pneumo --small bilateral pleural effusions persist COPD exacerbation --continue prednisone, duonebs, inhaler Acute on chronic diastolic heart failure --decrease lasix IV to 40 BID Paroxysmal atrial fibrillation --back in sinus rhythm --rate low 60s --continue low dose metoprolol --continue Eliquis Acute on chronic renal failure --2.2 on admission, 1.8 today (baseline 1.5) --decrease lasix IV to 40 BID Hypertension --BP well-controlled --continue amlodipine, metoprolol Hyperlipidemia --not on a statin CAD s/p stents --continue ASA h/o DVT and PE --on Eliquis F/E/N Fluids: PO intake adequate Electrolytes: replete as indicated Nutrition: diabetic, low sodium DVT prophylaxis: on Eliquis; oob, ambulation Physical therapy evaluation Dispo: continues to require inpatient care. Full Code. Visit type - Emergency Visit Emergency Visit: Yes ED Registration Date: 08/11/16 Care time: The patient presented to the Emergency Department on the above date and was hospitalized for further evaluation of their emergent condition. - New Patient This patient is new to me today: No - Critical Care Critical Care patient: No
[2016-08-15] MEDS ORDERED: TAMSULOSIN HCL 0.4 MG CAP.ER.24H (FP) PO SCH (08:30)
--- NOTE | 2016-08-15 09:13 | PN ---
Progress Note, Physician Chief Complaint: TELE: NSR Alert - Current Medication List Current Medications: Active Medications Acetaminophen (Tylenol -) 650 mg PO Q6H PRN PRN Reason: PAIN Albuterol/Ipratropium (Duoneb -) 1 amp NEB QIDR [facility] Last Admin: 08/15/16 06:16 Dose: 1 amp Amlodipine Besylate (Norvasc -) 10 mg PO DAILY [facility] Apixaban (Eliquis -) 2.5 mg PO BID [facility] Last Admin: 08/14/16 21:17 Dose: 2.5 mg Aspirin (Ecotrin -) 81 mg PO DAILY [facility] Atorvastatin Calcium (Lipitor -) 20 mg PO HS [facility] Last Admin: 08/14/16 21:17 Dose: 20 mg Bupropion HCl (Wellbutrin Xl -) 150 mg PO DAILY [facility] Chlorhexidine Gluconate (Hibiclens For Decolonization -) 1 applic TP HS [facility] Last Admin: 08/14/16 21:17 Dose: 1 applic Clindamycin HCl (Cleocin -) 300 mg PO Q6HPO [facility] Last Admin: 08/15/16 06:10 Dose: 300 mg Docusate Sodium (Colace -) 100 mg PO BID [facility] Last Admin: 08/14/16 21:17 Dose: 100 mg Duloxetine HCl (Cymbalta -) 60 mg PO DAILY [facility] Emollient Ointment (Aquaphor -) 1 applic TP BID [facility] Last Admin: 08/14/16 21:13 Dose: 1 applic Epoetin Keith (Procrit -) 10,000 unit SQ MoWeFr@1000 [facility] Ferrous Sulfate (Feosol -) 325 mg PO BID [facility] Last Admin: 08/14/16 21:17 Dose: 325 mg Furosemide (Lasix Injection -) 80 mg IVPUSH BID@0600,1400 [facility] Last Admin: 08/15/16 06:10 Dose: 80 mg Guaifenesin (Robitussin Dm -) 10 ml PO Q6H PRN PRN Reason: COUGH Ertapenem 1 gm/ Sodium (Chloride) 50 mls @ 50 mls/hr IVPB DAILY [facility] PRN Reason: Protocol Metoprolol Tartrate (Lopressor -) 25 mg PO BID [facility] Last Admin: 08/14/16 21:18 Dose: 25 mg Mupirocin (Bactroban Ointment (For Decolonization) -) 1 applic NS BID [facility] Stop: 08/16/16 21:59 Last Admin: 08/14/16 21:13 Dose: 1 applic Non-Formulary Medication (Fluticasone/Vilanterol [Breo Ellipta 100-25 Mcg Inh]) 1 each IH DAILY [facility] Nystatin (Nystop Powder -) 1 applic TP DAILY [facility] Pantoprazole Sodium (Protonix -) 40 mg PO DAILY [facility] Polyethylene Glycol (Miralax (For Daily Use) -) 17 gm PO DAILY [facility] Last Admin: 08/14/16 15:26 Dose: 17 grams Prednisone (Deltasone -) 40 mg PO DAILY [facility] Senna (Senna -) 2 tab PO DAILY [facility] Tamsulosin HCl (Flomax -) 0.4 mg PO DAILY@0830 [facility] - Objective Vital Signs: Vital Signs Temperature 98 F 08/15/16 06:00 Pulse Rate 56 L 08/15/16 06:00 Respiratory Rate 18 08/15/16 06:00 Blood Pressure 141/78 08/15/16 06:00 O2 Sat by Pulse Oximetry (%) 97 08/15/16 07:37 Constitutional: Yes: No Distress Cardiovascular: Yes: Regular Rate and Rhythm Respiratory: Yes: Other (decreased breath sounds bilaterally) Gastrointestinal: Yes: Soft, Abdomen, Obese Edema: Yes Edema: LLE: 1+, RLE: 1+ Neurological: Yes: Alert Labs: CBC, BMP 08/14/16 05:30 08/14/16 05:30 INR, PTT INR 1.13 (0.82-1.09) 08/11/16 18:20 Laboratory Tests 08/14/16 08/14/16 05:30 05:30 WBC 9.5 Hgb 8.4 L Plt Count 189 Potassium 3.7 Creatinine 1.8 H Assessment/Plan Assessment/Plan 75 year old man with a history of HTN, COPD on home O2, Chronic combined systolic/diastolic CHF, CKD, JOY, CAD moderate LV systolic dysfunction, cardiac cath 03/2015 showed 2VD with RCA and LAD disease s/p PCI with ABDON of RCA 2014 and staged PCI of LAD in 04/2015 with significant improvement in symptoms for some time, followed by multiple admissions for respiratory failure, sepsis, KARLOS, has been in [place], recently tx for presumed PNA, admitted with sob and recurrent pleural effusions. SOB-multifactorial, PNA, AE COPD, pleural effusions, acute on chronic combined systolic/diastolic CHF -s/p thoracentesis with improvement in symptoms, as per report pleural fluid appeared transudative -does not appear severely volume overloaded from baseline but will cont his current trial of diuresis for now -monitor strict I/Os and daily weights -monitor BUN/Creat, electrolytes, keep k=4, Mg=2 -not on PIPER-I currently due to fluctuating renal function in the past -last echo 05/2016 showed normal LV systolic function, no sig valvular abnl -receiving steroids and Abx CAD-PCI with ABDON of RCA 03/2015 and staged PCI of LAD in 04/2015 -echo as above -cont ASA -cont lipitor -cont lopressor if tolerates from a copd standpoint DVT-LLE -on eliquis adjusted for renal fxn
[2016-08-15] MEDS: TAMSULOSIN HCL 0.4 MG CAP.ER.24H (FP) PO SCH (09:25)
[2016-08-15] MEDS ORDERED: PANTOPRAZOLE 40 MG TABLET (FP) PO SCH (10:00)
[2016-08-15] MEDS ORDERED: predniSONE 20 MG TABLET (UD) PO SCH (10:00)
[2016-08-15] MEDS ORDERED: ASPIRIN COATED 81 MG TABLET.EC PO SCH (10:00)
[2016-08-15] MEDS ORDERED: SENNOSIDES 8.6MG TABLET (FP) PO SCH (10:00)
[2016-08-15] MEDS ORDERED: amLODIPine BESYLATE 10 MG TABLET (FP) PO SCH (10:00)
[2016-08-15] MEDS ORDERED: NYSTATIN POWDER 100,000 UNITS/GM - 15 GM TOPICAL POWDER TP SCH (10:00)
[2016-08-15] MEDS ORDERED: DULoxetine HCL 30 MG CAPSULE.DR (FP) PO SCH (10:00)
[2016-08-15] MEDS: DULoxetine HCL 30 MG CAPSULE.DR (FP) PO SCH (10:19)
[2016-08-15] MEDS: predniSONE 20 MG TABLET (UD) PO SCH (10:20)
[2016-08-15] MEDS: METOPROLOL TARTRATE 25 MG TABLET (FP) PO SCH ×2 (10:20→21:34)
[2016-08-15] MEDS: FERROUS SO4 325 MG TABLET (FP) PO SCH ×2 (10:21→21:34)
[2016-08-15] MEDS: SENNOSIDES 8.6MG TABLET (FP) PO SCH (10:21)
[2016-08-15] MEDS: APIXABAN 2.5 MG TABLET PO SCH ×2 (10:22→21:34)
[2016-08-15] MEDS: ASPIRIN COATED 81 MG TABLET.EC PO SCH (10:22)
[2016-08-15] MEDS: amLODIPine BESYLATE 10 MG TABLET (FP) PO SCH (10:22)
[2016-08-15] MEDS: DOCUSATE SODIUM 100 MG CAPSULE (FP) PO SCH ×2 (10:22→21:34)
[2016-08-15] MEDS: POLYETHYLENE GLYCOL 3350 119 GM BTL PO SCH (10:23)
[2016-08-15] MEDS: MUPIROCIN 2% TOPICAL OINTMENT FOR DECOLONIZATION NS SCH ×2 (10:24→21:36)
[2016-08-15] MEDS: MINERAL OIL/PET HY-PHL TOPICAL OINTMENT 454 GM JAR TP SCH ×2 (10:25→21:37)
[2016-08-15] MEDS: guaiFENesin/D-METHORPHAN HB 10 ML UNIT-DOSE CUPS PO PRN (10:28)
[2016-08-15] MEDS: PANTOPRAZOLE 40 MG TABLET (FP) PO SCH (13:25)
[2016-08-15] MEDS: NYSTATIN POWDER 100,000 UNITS/GM - 15 GM TOPICAL POWDER TP SCH (13:26)
--- NOTE | 2016-08-15 13:42 | PN ---
Progress Note, Physician History of Present Illness: still not feeling better on bipap says he is slightly better today still off and on of bipap - Current Medication List Current Medications: Active Medications Acetaminophen (Tylenol -) 650 mg PO Q6H PRN PRN Reason: PAIN Albuterol/Ipratropium (Duoneb -) 1 amp NEB QIDR [facility] Last Admin: 08/15/16 11:00 Dose: 1 amp Amlodipine Besylate (Norvasc -) 10 mg PO DAILY [facility] Last Admin: 08/15/16 10:22 Dose: 10 mg Apixaban (Eliquis -) 2.5 mg PO BID [facility] Last Admin: 08/15/16 10:22 Dose: 2.5 mg Aspirin (Ecotrin -) 81 mg PO DAILY [facility] Last Admin: 08/15/16 10:22 Dose: 81 mg Atorvastatin Calcium (Lipitor -) 20 mg PO HS [facility] Last Admin: 08/14/16 21:17 Dose: 20 mg Bupropion HCl (Wellbutrin Xl -) 150 mg PO DAILY [facility] Last Admin: 08/15/16 10:26 Dose: 150 mg Chlorhexidine Gluconate (Hibiclens For Decolonization -) 1 applic TP HS [facility] Last Admin: 08/14/16 21:17 Dose: 1 applic Clindamycin HCl (Cleocin -) 300 mg PO Q6HPO [facility] Last Admin: 08/15/16 13:25 Dose: 300 mg Docusate Sodium (Colace -) 100 mg PO BID [facility] Last Admin: 08/15/16 10:22 Dose: 100 mg Duloxetine HCl (Cymbalta -) 60 mg PO DAILY [facility] Last Admin: 08/15/16 10:19 Dose: 60 mg Emollient Ointment (Aquaphor -) 1 applic TP BID [facility] Last Admin: 08/15/16 10:25 Dose: 1 applic Epoetin Keith (Procrit -) 10,000 unit SQ MoWeFr@1000 [facility] Ferrous Sulfate (Feosol -) 325 mg PO BID [facility] Last Admin: 08/15/16 10:21 Dose: 325 mg Furosemide (Lasix Injection -) 80 mg IVPUSH BID@0600,1400 [facility] Last Admin: 08/15/16 13:24 Dose: 80 mg Guaifenesin (Robitussin Dm -) 10 ml PO Q6H PRN PRN Reason: COUGH Last Admin: 08/15/16 10:28 Dose: 10 ml Ertapenem 1 gm/ Sodium (Chloride) 50 mls @ 50 mls/hr IVPB DAILY [facility] PRN Reason: Protocol Metoprolol Tartrate (Lopressor -) 25 mg PO BID [facility] Last Admin: 08/15/16 10:20 Dose: 25 mg Mupirocin (Bactroban Ointment (For Decolonization) -) 1 applic NS BID [facility] Stop: 08/16/16 21:59 Last Admin: 08/15/16 10:24 Dose: 1 applic Non-Formulary Medication (Fluticasone/Vilanterol [Breo Ellipta 100-25 Mcg Inh]) 1 each IH DAILY [facility] Nystatin (Nystop Powder -) 1 applic TP DAILY [facility] Last Admin: 08/15/16 13:26 Dose: 1 applic Pantoprazole Sodium (Protonix -) 40 mg PO DAILY [facility] Last Admin: 08/15/16 13:25 Dose: 40 mg Polyethylene Glycol (Miralax (For Daily Use) -) 17 gm PO DAILY [facility] Last Admin: 08/15/16 10:23 Dose: 17 grams Prednisone (Deltasone -) 40 mg PO DAILY [facility] Last Admin: 08/15/16 10:20 Dose: 40 mg Senna (Senna -) 2 tab PO DAILY [facility] Last Admin: 08/15/16 10:21 Dose: 2 tab Tamsulosin HCl (Flomax -) 0.4 mg PO DAILY@0830 [facility] Last Admin: 08/15/16 09:25 Dose: 0.4 mg - Objective Vital Signs: Vital Signs Temperature 98.7 F 08/15/16 10:00 Pulse Rate 57 L 08/15/16 12:00 Respiratory Rate 20 08/15/16 12:00 Blood Pressure 113/62 08/15/16 12:00 O2 Sat by Pulse Oximetry (%) 90 L 08/15/16 11:34 Constitutional: Yes: Calm Cardiovascular: Yes: S1, S2 Respiratory: Yes: On BiPap, On Nasal O2, Poor Air Entry Gastrointestinal: Yes: Normal Bowel Sounds, Soft Musculoskeletal: Yes: Other Extremities: Yes: Other Integumentary: Yes: Erythema (improving) Neurological: Yes: Alert, Oriented Psychiatric: Yes: Alert Labs: CBC, BMP 08/14/16 05:30 08/14/16 05:30 INR, PTT INR 1.13 (0.82-1.09) 08/11/16 18:20 Assessment/Plan Problem List - Problems (1) Acute and chronic respiratory failure with hypoxia Code(s): J96.21 - ACUTE AND CHRONIC RESPIRATORY FAILURE WITH HYPOXIA (2) Pneumonia Code(s): J18.9 - PNEUMONIA, UNSPECIFIED ORGANISM Qualifiers: Pneumonia type: due to unspecified organism Laterality: left Lung location: lower lobe of lung Qualified Code(s): J18.1 - Lobar pneumonia, unspecified organism (3) Pleural effusion Code(s): J90 - PLEURAL EFFUSION, NOT ELSEWHERE CLASSIFIED (4) Acute on chronic diastolic (congestive) heart failure Code(s): I50.33 - ACUTE ON CHRONIC DIASTOLIC (CONGESTIVE) HEART FAILURE (5) COPD (chronic obstructive pulmonary disease) Code(s): J44.9 - CHRONIC OBSTRUCTIVE PULMONARY DISEASE, UNSPECIFIED (6) Renal failure (ARF), acute on chronic Code(s): N17.9 - ACUTE KIDNEY FAILURE, UNSPECIFIED N18.9 - CHRONIC KIDNEY DISEASE, UNSPECIFIED (7) Diabetes Code(s): E11.9 - TYPE 2 DIABETES MELLITUS WITHOUT COMPLICATIONS Qualifiers: Diabetes mellitus type: type 2 Diabetes mellitus complication status: with kidney complications Diabetes mellitus complication detail: with chronic kidney disease (8) Atrial fibrillation Code(s): I48.91 - UNSPECIFIED ATRIAL FIBRILLATION 9 bilateral cellulitis of the legs plan continue abx resp support all cx reports noted elevation of the leg continue as per pul icu cc time 40 min
--- NOTE | 2016-08-15 15:00 | PN ---
Teaching Attending Note Name of Resident: Jenelle Nava ATTENDING PHYSICIAN STATEMENT I saw and evaluated the patient. I reviewed the resident's note and discussed the case with the resident. I agree with the resident's findings and plan as documented. SUBJECTIVE: Patient seen and examined in the ICU. Awake and alert. Remains with congested cough. Denies CP. Still requiring 50% VM O2. Intake & Output 08/12/16 08/13/16 08/14/16 08/15/16 23:59 23:59 23:59 23:59 Intake Total 2750 1500 1690 910 Output Total 3760 1910 2400 900 Balance -1010 -410 -710 10 Weight 220 lb 0.341 oz 220 lb 0.341 oz 221 lb 1.978 oz 221 lb 2 oz Last Vital Signs Temp Pulse Resp BP Pulse Ox 98.7 F 65 21 115/64 99 08/15/16 10:00 08/15/16 14:00 08/15/16 14:00 08/15/16 14:00 08/15/16 13:45 Active Medications Acetaminophen (Tylenol -) 650 mg PO Q6H PRN PRN Reason: PAIN Albuterol/Ipratropium (Duoneb -) 1 amp NEB QIDR [facility] Last Admin: 08/15/16 11:00 Dose: 1 amp Amlodipine Besylate (Norvasc -) 10 mg PO DAILY [facility] Last Admin: 08/15/16 10:22 Dose: 10 mg Apixaban (Eliquis -) 2.5 mg PO BID [facility] Last Admin: 08/15/16 10:22 Dose: 2.5 mg Aspirin (Ecotrin -) 81 mg PO DAILY [facility] Last Admin: 08/15/16 10:22 Dose: 81 mg Atorvastatin Calcium (Lipitor -) 20 mg PO HS [facility] Last Admin: 08/14/16 21:17 Dose: 20 mg Bupropion HCl (Wellbutrin Xl -) 150 mg PO DAILY [facility] Last Admin: 08/15/16 10:26 Dose: 150 mg Chlorhexidine Gluconate (Hibiclens For Decolonization -) 1 applic TP HS [facility] Last Admin: 08/14/16 21:17 Dose: 1 applic Clindamycin HCl (Cleocin -) 300 mg PO Q6HPO [facility] Last Admin: 08/15/16 13:25 Dose: 300 mg Docusate Sodium (Colace -) 100 mg PO BID [facility] Last Admin: 08/15/16 10:22 Dose: 100 mg Duloxetine HCl (Cymbalta -) 60 mg PO DAILY [facility] Last Admin: 08/15/16 10:19 Dose: 60 mg Emollient Ointment (Aquaphor -) 1 applic TP BID [facility] Last Admin: 08/15/16 10:25 Dose: 1 applic Epoetin Keith (Procrit -) 10,000 unit SQ MoWeFr@1000 [facility] Ferrous Sulfate (Feosol -) 325 mg PO BID [facility] Last Admin: 08/15/16 10:21 Dose: 325 mg Furosemide (Lasix Injection -) 80 mg IVPUSH BID@0600,1400 [facility] Last Admin: 08/15/16 13:24 Dose: 80 mg Guaifenesin (Robitussin Dm -) 10 ml PO Q6H PRN PRN Reason: COUGH Last Admin: 08/15/16 10:28 Dose: 10 ml Ertapenem 1 gm/ Sodium (Chloride) 50 mls @ 50 mls/hr IVPB DAILY [facility] PRN Reason: Protocol Metoprolol Tartrate (Lopressor -) 25 mg PO BID [facility] Last Admin: 08/15/16 10:20 Dose: 25 mg Mupirocin (Bactroban Ointment (For Decolonization) -) 1 applic NS BID [facility] Stop: 08/16/16 21:59 Last Admin: 08/15/16 10:24 Dose: 1 applic Non-Formulary Medication (Fluticasone/Vilanterol [Breo Ellipta 100-25 Mcg Inh]) 1 each IH DAILY [facility] Nystatin (Nystop Powder -) 1 applic TP DAILY [facility] Last Admin: 08/15/16 13:26 Dose: 1 applic Pantoprazole Sodium (Protonix -) 40 mg PO DAILY [facility] Last Admin: 08/15/16 13:25 Dose: 40 mg Polyethylene Glycol (Miralax (For Daily Use) -) 17 gm PO DAILY [facility] Last Admin: 08/15/16 10:23 Dose: 17 grams Prednisone (Deltasone -) 40 mg PO DAILY [facility] Last Admin: 08/15/16 10:20 Dose: 40 mg Senna (Senna -) 2 tab PO DAILY [facility] Last Admin: 08/15/16 10:21 Dose: 2 tab Tamsulosin HCl (Flomax -) 0.4 mg PO DAILY@0830 [facility] Last Admin: 08/15/16 09:25 Dose: 0.4 mg General: awake, alert, responsive, mildly tachypneic at rest HEENT: PERRL CV: Irregular Pulm: Diminished in bases, scattered rhonchi Abd: obese, Soft, NT, ND, +BS Ext: LE +4 edema, chronic venous stasis changes, mild errythemia Neuro: grossly intact Laboratory Results - last 24 hr 08/11/16 19:01 Blood Type A POSITIVE Antibody Screen Negative Crossmatch See Detail Problem List - Problems (1) Acute and chronic respiratory failure with hypoxia Code(s): J96.21 - ACUTE AND CHRONIC RESPIRATORY FAILURE WITH HYPOXIA (2) Pneumonia Code(s): J18.9 - PNEUMONIA, UNSPECIFIED ORGANISM Qualifiers: Pneumonia type: due to unspecified organism Laterality: left Lung location: lower lobe of lung Qualified Code(s): J18.1 - Lobar pneumonia, unspecified organism (3) Pleural effusion Code(s): J90 - PLEURAL EFFUSION, NOT ELSEWHERE CLASSIFIED (4) Acute on chronic diastolic (congestive) heart failure Code(s): I50.33 - ACUTE ON CHRONIC DIASTOLIC (CONGESTIVE) HEART FAILURE (5) COPD (chronic obstructive pulmonary disease) Code(s): J44.9 - CHRONIC OBSTRUCTIVE PULMONARY DISEASE, UNSPECIFIED (6) Renal failure (ARF), acute on chronic Code(s): N17.9 - ACUTE KIDNEY FAILURE, UNSPECIFIED N18.9 - CHRONIC KIDNEY DISEASE, UNSPECIFIED (7) Diabetes Code(s): E11.9 - TYPE 2 DIABETES MELLITUS WITHOUT COMPLICATIONS Qualifiers: Diabetes mellitus type: type 2 Diabetes mellitus complication status: with kidney complications Diabetes mellitus complication detail: with chronic kidney disease (8) Atrial fibrillation Code(s): I48.91 - UNSPECIFIED ATRIAL FIBRILLATION Assessment/Plan 50% venti-mask NIPPV QHS/PRN ABX BD TX Prednisone taper AC Glycemic control PPI Lasix Cardiac Telemetry monitoring Dr Vasquez critical care time spent in reviewing chart, evaluating patient and formulating plan 38 min
--- NOTE | 2016-08-15 17:00 | PN ---
Physical Exam: SUBJECTIVE: Patient seen and examined. he is complaining of SOB. No change from yesterday. He is on venti mask 50%. OBJECTIVE: Vital Signs Period Temp Pulse Resp BP Sys/[place] Pulse Ox Last 24 Hr 97.8 F-98.7 F 56-88 18- 113-141/59-78 90-99 GENERAL: The patient is awake, alert, and fully oriented, in no acute distress, on VM. HEAD: Normal with no signs of trauma. EYES: PERRL, conjunctiva clear. ENT: Ears normal, nares patent, moist mucous membranes. NECK: Trachea midline, full range of motion, supple. LUNGS: Breath sounds equal, diminished B/L, no crackles, no accessory muscle use. HEART: Regular rate and rhythm, S1, S2 without murmur, rub or gallop. ABDOMEN: Soft, nontender, nondistended, normoactive bowel sounds, no guarding, no rebound, no masses. EXTREMITIES: 2+ pulses, warm, well-perfused, 1+ LE edema and mild erythema in LE B/L, warm to touch. NEUROLOGICAL:No facial asymmetry, normal speech, gait not observed. PSYCH: Normal mood, normal affect. SKIN: Warm, dry, normal turgor, lower extremities venous stasis changes B/L. Active Medications Generic Name Dose Route Start Last Admin Trade Name Freq PRN Reason Stop Dose Admin Acetaminophen 650 mg 08/14/16 17:14 Tylenol - PO Q6H PRN PAIN Albuterol/Ipratropium 1 amp 08/14/16 18:00 08/15/16 11:00 Duoneb - NEB 1 amp QIDR [facility] Administration Amlodipine Besylate 10 mg 08/15/16 10:00 08/15/16 10:22 Norvasc - PO 10 mg DAILY [facility] Administration Apixaban 2.5 mg 08/14/16 22:00 08/15/16 10:22 Eliquis - PO 2.5 mg BID [facility] Administration Aspirin 81 mg 08/15/16 10:00 08/15/16 10:22 Ecotrin - PO 81 mg DAILY [facility] Administration Atorvastatin Calcium 20 mg 08/14/16 22:00 08/14/16 21:17 Lipitor - PO 20 mg HS [facility] Administration Bupropion HCl 150 mg 08/15/16 10:00 08/15/16 10:26 Wellbutrin Xl - PO 150 mg DAILY [facility] Administration Chlorhexidine Gluconate 1 applic 08/14/16 22:00 08/14/16 21:17 Hibiclens For Decolonization - TP 1 applic HS [facility] Administration Clindamycin HCl 300 mg 08/15/16 00:00 08/15/16 13:25 Cleocin - PO 300 mg Q6HPO [facility] Administration Docusate Sodium 100 mg 08/14/16 22:00 08/15/16 10:22 Colace - PO 100 mg BID [facility] Administration Duloxetine HCl 60 mg 08/15/16 10:00 08/15/16 10:19 Cymbalta - PO 60 mg DAILY [facility] Administration Emollient Ointment 1 applic 08/14/16 22:00 08/15/16 10:25 Aquaphor - TP 1 applic BID [facility] Administration Epoetin Keith 10,000 unit 08/16/16 10:00 Procrit - SQ MoWeFr@1000 [facility] Ferrous Sulfate 325 mg 08/14/16 22:00 08/15/16 10:21 Feosol - PO 325 mg BID [facility] Administration Furosemide 80 mg 08/15/16 06:00 08/15/16 13:24 Lasix Injection - IVPUSH 80 mg BID@0600,1400 [facility] Administration Guaifenesin 10 ml 08/14/16 17:14 08/15/16 10:28 Robitussin Dm - PO 10 ml Q6H PRN Administration COUGH Ertapenem 1 gm/ Sodium 50 mls @ 50 mls/hr 08/15/16 10:00 Chloride IVPB DAILY [facility] Protocol Metoprolol Tartrate 25 mg 08/14/16 22:00 08/15/16 10:20 Lopressor - PO 25 mg BID [facility] Administration Mupirocin 1 applic 08/14/16 22:00 08/15/16 10:24 Bactroban Ointment (For Decolonization) - NS 08/16/16 21:59 1 applic BID [facility] Administration Non-Formulary Medication 1 each 08/15/16 10:00 Fluticasone/Vilanterol [Breo Ellipta 100-25 Mcg Inh] IH DAILY [facility] Nystatin 1 applic 08/15/16 10:00 08/15/16 13:26 Nystop Powder - TP 1 applic DAILY [facility] Administration Pantoprazole Sodium 40 mg 08/15/16 10:00 08/15/16 13:25 Protonix - PO 40 mg DAILY [facility] Administration Polyethylene Glycol 17 gm 08/14/16 15:15 08/15/16 10:23 Miralax (For Daily Use) - PO 17 grams DAILY [facility] Administration Prednisone 40 mg 08/15/16 10:00 08/15/16 10:20 Deltasone - PO 40 mg DAILY [facility] Administration Senna 2 tab 08/15/16 10:00 08/15/16 10:21 Senna - PO 2 tab DAILY [facility] Administration Tamsulosin HCl 0.4 mg 08/15/16 08:30 08/15/16 09:25 Flomax - PO 0.4 mg DAILY@0830 [facility] Administration 08/12/16 06:00 Sputum - Expectorated Gram Stain - Final 08/12/16 06:00 Sputum - Expectorated Sputum Culture - Final NORMAL RESPIRATORY FAWN 08/12/16 00:00 Pleural Fluid Gram Stain - Final 08/12/16 00:00 Pleural Fluid Body Fluid Culture - Final NO GROWTH OF AEROBIC ORGANISMS AFTER 48 HOURS INCUBATION 08/12/16 00:00 Pleural Fluid Anaerobic Culture - Final NO ANAEROBES WERE ISOLATED 08/11/16 18:20 Blood - Peripheral Venous Blood Culture - Preliminary NO GROWTH OBTAINED AFTER 48 HOURS, INCUBATION TO CONTINUE FOR 3 DAYS. 08/11/16 18:20 Blood - Peripheral Venous Blood Culture - Preliminary NO GROWTH OBTAINED AFTER 48 HOURS, INCUBATION TO CONTINUE FOR 3 DAYS. 08/11/16 16:55 Urine - Urine - Catheterized Urine Culture - Final NO GROWTH OBTAINED 08/12/16 06:00 Nasopharyngeal Swab Respiratory Virus (PCR) - Preliminary 08/12/16 12:00 Urine - Urine Clifford Legionella Antigen - Final 08/12/16 12:00 Urine - Urine Clifford Streptococcus pneumoniae Antigen (M - Final ASSESSMENT/PLAN: 75 year old man with a history of HTN, COPD on home O2, chronic systolic/ diastolic CHF, CKD, JOY, CAD s/p 2 stents, GI bleed, GERD, , TIA, anemia, multiple admissions for respiratory failure, sepsis, KARLOS, has been in NH, recently tx for presumed PNA, admitted with sob and recurrent pleural effusions and cough. Pulmonary; SOB-multifactorial, PNA, COPD, pleural effusions, -s/p thoracentesis, fluid appeared transudative -duonebs scheduled and PRN COPD exacerbation -continue prednisone, duonebs, inhaler CVA: -does not appear severely volume overloaded, will continue diuresis -monitor strict I/Os and daily weights -cont Lopressor 25mg bid -not on PIPER-I currently due to fluctuating renal function in the past -cont ASA -cont lipitor -cont lopressor ID: -continue antibiotics for cellulitis Ertapenem and Clindamycin Nephro: -monitor BUN/Creat, electrolytes, keep k=4, Mg=2 -last echo 05/2016 showed normal LV systolic function, no sig valvular abnl -receiving steroids and Abx DVT -on eliquis Disposition: pending transfer to med surg Visit type - Emergency Visit Emergency Visit: Yes ED Registration Date: 08/11/16 Care time: The patient presented to the Emergency Department on the above date and was hospitalized for further evaluation of their emergent condition. - New Patient This patient is new to me today: No - Critical Care Critical Care patient: Yes Total Critical Care Time (in minutes): 30 Critical Care Statement: The care of this patient involved high complexity decision making to prevent further life threatening deterioration of the patient 's condition and/or to evalute & treat vital organ system(s) failure or risk of failure.
--- NOTE | 2016-08-15 17:10 | PN ---
Progress Note, Physician - Current Medication List Current Medications: Active Medications Acetaminophen (Tylenol -) 650 mg PO Q6H PRN PRN Reason: PAIN Albuterol/Ipratropium (Duoneb -) 1 amp NEB QIDR [facility] Last Admin: 08/15/16 11:00 Dose: 1 amp Amlodipine Besylate (Norvasc -) 10 mg PO DAILY [facility] Last Admin: 08/15/16 10:22 Dose: 10 mg Apixaban (Eliquis -) 2.5 mg PO BID [facility] Last Admin: 08/15/16 10:22 Dose: 2.5 mg Aspirin (Ecotrin -) 81 mg PO DAILY [facility] Last Admin: 08/15/16 10:22 Dose: 81 mg Atorvastatin Calcium (Lipitor -) 20 mg PO [facility] Last Admin: 08/14/16 21:17 Dose: 20 mg Bupropion HCl (Wellbutrin Xl -) 150 mg PO DAILY [facility] Last Admin: 08/15/16 10:26 Dose: 150 mg Chlorhexidine Gluconate (Hibiclens For Decolonization -) 1 applic TP [facility] Last Admin: 08/14/16 21:17 Dose: 1 applic Clindamycin HCl (Cleocin -) 300 mg PO Q6HPO [facility] Last Admin: 08/15/16 13:25 Dose: 300 mg Docusate Sodium (Colace -) 100 mg PO BID [facility] Last Admin: 08/15/16 10:22 Dose: 100 mg Duloxetine HCl (Cymbalta -) 60 mg PO DAILY [facility] Last Admin: 08/15/16 10:19 Dose: 60 mg Emollient Ointment (Aquaphor -) 1 applic TP BID [facility] Last Admin: 08/15/16 10:25 Dose: 1 applic Epoetin Keith (Procrit -) 10,000 unit SQ MoWeFr@1000 [facility] Ferrous Sulfate (Feosol -) 325 mg PO BID [facility] Last Admin: 08/15/16 10:21 Dose: 325 mg Furosemide (Lasix Injection -) 80 mg IVPUSH BID@0600,1400 [facility] Last Admin: 08/15/16 13:24 Dose: 80 mg Guaifenesin (Robitussin Dm -) 10 ml PO Q6H PRN PRN Reason: COUGH Last Admin: 08/15/16 10:28 Dose: 10 ml Ertapenem 1 gm/ Sodium (Chloride) 50 mls @ 50 mls/hr IVPB DAILY [facility] PRN Reason: Protocol Metoprolol Tartrate (Lopressor -) 25 mg PO BID [facility] Last Admin: 08/15/16 10:20 Dose: 25 mg Mupirocin (Bactroban Ointment (For Decolonization) -) 1 applic NS BID [facility] Stop: 08/16/16 21:59 Last Admin: 08/15/16 10:24 Dose: 1 applic Non-Formulary Medication (Fluticasone/Vilanterol [Breo Ellipta 100-25 Mcg Inh]) 1 each IH DAILY [facility] Nystatin (Nystop Powder -) 1 applic TP DAILY [facility] Last Admin: 08/15/16 13:26 Dose: 1 applic Pantoprazole Sodium (Protonix -) 40 mg PO DAILY [facility] Last Admin: 08/15/16 13:25 Dose: 40 mg Polyethylene Glycol (Miralax (For Daily Use) -) 17 gm PO DAILY [facility] Last Admin: 08/15/16 10:23 Dose: 17 grams Prednisone (Deltasone -) 40 mg PO DAILY [facility] Last Admin: 08/15/16 10:20 Dose: 40 mg Senna (Senna -) 2 tab PO DAILY [facility] Last Admin: 08/15/16 10:21 Dose: 2 tab Tamsulosin HCl (Flomax -) 0.4 mg PO DAILY@0830 [facility] Last Admin: 08/15/16 09:25 Dose: 0.4 mg - Objective Vital Signs: Vital Signs Temperature 98.7 F 08/15/16 10:00 Pulse Rate 63 08/15/16 16:00 Respiratory Rate 20 08/15/16 16:00 Blood Pressure 113/59 08/15/16 16:00 O2 Sat by Pulse Oximetry (%) 94 L 08/15/16 15:50 Labs: CBC, BMP 08/14/16 05:30 08/14/16 05:30 INR, PTT INR 1.13 (0.82-1.09) 08/11/16 18:20 Problem List - Problems (1) Acute and chronic respiratory failure with hypoxia Code(s): J96.21 - ACUTE AND CHRONIC RESPIRATORY FAILURE WITH HYPOXIA (2) Atrial fibrillation Code(s): I48.91 - UNSPECIFIED ATRIAL FIBRILLATION (3) Pleural effusion Code(s): J90 - PLEURAL EFFUSION, NOT ELSEWHERE CLASSIFIED (4) Pneumonia Code(s): J18.9 - PNEUMONIA, UNSPECIFIED ORGANISM Qualifiers: Pneumonia type: due to unspecified organism Laterality: left Lung location: lower lobe of lung Qualified Code(s): J18.1 - Lobar pneumonia, unspecified organism (5) Acute on chronic diastolic (congestive) heart failure Code(s): I50.33 - ACUTE ON CHRONIC DIASTOLIC (CONGESTIVE) HEART FAILURE
--- NOTE | 2016-08-15 17:10 | PN ---
Progress Note, Physician History of Present Illness: Pt alert and oriented. Using Bipap currently. - Current Medication List Current Medications: Active Medications Acetaminophen (Tylenol -) 650 mg PO Q6H PRN PRN Reason: PAIN Albuterol/Ipratropium (Duoneb -) 1 amp NEB QIDR [facility] Last Admin: 08/15/16 11:00 Dose: 1 amp Amlodipine Besylate (Norvasc -) 10 mg PO DAILY [facility] Last Admin: 08/15/16 10:22 Dose: 10 mg Apixaban (Eliquis -) 2.5 mg PO BID [facility] Last Admin: 08/15/16 10:22 Dose: 2.5 mg Aspirin (Ecotrin -) 81 mg PO DAILY [facility] Last Admin: 08/15/16 10:22 Dose: 81 mg Atorvastatin Calcium (Lipitor -) 20 mg PO HS [facility] Last Admin: 08/14/16 21:17 Dose: 20 mg Bupropion HCl (Wellbutrin Xl -) 150 mg PO DAILY [facility] Last Admin: 08/15/16 10:26 Dose: 150 mg Chlorhexidine Gluconate (Hibiclens For Decolonization -) 1 applic TP HS [facility] Last Admin: 08/14/16 21:17 Dose: 1 applic Clindamycin HCl (Cleocin -) 300 mg PO Q6HPO [facility] Last Admin: 08/15/16 13:25 Dose: 300 mg Docusate Sodium (Colace -) 100 mg PO BID [facility] Last Admin: 08/15/16 10:22 Dose: 100 mg Duloxetine HCl (Cymbalta -) 60 mg PO DAILY [facility] Last Admin: 08/15/16 10:19 Dose: 60 mg Emollient Ointment (Aquaphor -) 1 applic TP BID [facility] Last Admin: 08/15/16 10:25 Dose: 1 applic Epoetin Keith (Procrit -) 10,000 unit SQ MoWeFr@1000 [facility] Ferrous Sulfate (Feosol -) 325 mg PO BID [facility] Last Admin: 08/15/16 10:21 Dose: 325 mg Furosemide (Lasix Injection -) 80 mg IVPUSH BID@0600,1400 [facility] Last Admin: 08/15/16 13:24 Dose: 80 mg Guaifenesin (Robitussin Dm -) 10 ml PO Q6H PRN PRN Reason: COUGH Last Admin: 08/15/16 10:28 Dose: 10 ml Ertapenem 1 gm/ Sodium (Chloride) 50 mls @ 50 mls/hr IVPB DAILY [facility] PRN Reason: Protocol Metoprolol Tartrate (Lopressor -) 25 mg PO BID [facility] Last Admin: 08/15/16 10:20 Dose: 25 mg Mupirocin (Bactroban Ointment (For Decolonization) -) 1 applic NS BID [facility] Stop: 08/16/16 21:59 Last Admin: 08/15/16 10:24 Dose: 1 applic Non-Formulary Medication (Fluticasone/Vilanterol [Breo Ellipta 100-25 Mcg Inh]) 1 each IH DAILY [facility] Nystatin (Nystop Powder -) 1 applic TP DAILY [facility] Last Admin: 08/15/16 13:26 Dose: 1 applic Pantoprazole Sodium (Protonix -) 40 mg PO DAILY [facility] Last Admin: 08/15/16 13:25 Dose: 40 mg Polyethylene Glycol (Miralax (For Daily Use) -) 17 gm PO DAILY [facility] Last Admin: 08/15/16 10:23 Dose: 17 grams Prednisone (Deltasone -) 40 mg PO DAILY [facility] Last Admin: 08/15/16 10:20 Dose: 40 mg Senna (Senna -) 2 tab PO DAILY [facility] Last Admin: 08/15/16 10:21 Dose: 2 tab Tamsulosin HCl (Flomax -) 0.4 mg PO DAILY@0830 [facility] Last Admin: 08/15/16 09:25 Dose: 0.4 mg - Objective Vital Signs: Vital Signs Temperature 98.7 F 08/15/16 10:00 Pulse Rate 63 08/15/16 16:00 Respiratory Rate 20 08/15/16 16:00 Blood Pressure 113/59 08/15/16 16:00 O2 Sat by Pulse Oximetry (%) 94 L 08/15/16 15:50 Constitutional: Yes: No Distress Eyes: No: Sclera Icterus HENT: Yes: Atraumatic, Normocephalic Neck: Yes: Supple, Trachea Midline Cardiovascular: Yes: Regular Rate and Rhythm, JVD Respiratory: Yes: Diminished (bilateral) Gastrointestinal: Yes: Soft. No: Tenderness Extremities: Yes: Other (stasis changes) Edema: LLE: 2+, RLE: 2+ Neurological: Yes: Alert, Oriented Labs: CBC, BMP 08/14/16 05:30 05/08/17 05:30 INR, PTT INR 1.13 (0.82-1.09) 08/11/16 18:20 Problem List - Problems (1) Acute and chronic respiratory failure with hypoxia Code(s): J96.21 - ACUTE AND CHRONIC RESPIRATORY FAILURE WITH HYPOXIA (2) Atrial fibrillation Code(s): I48.91 - UNSPECIFIED ATRIAL FIBRILLATION (3) Pleural effusion Code(s): J90 - PLEURAL EFFUSION, NOT ELSEWHERE CLASSIFIED (4) Pneumonia Code(s): J18.9 - PNEUMONIA, UNSPECIFIED ORGANISM Qualifiers: Pneumonia type: due to unspecified organism Laterality: left Lung location: lower lobe of lung Qualified Code(s): J18.1 - Lobar pneumonia, unspecified organism (5) Acute on chronic diastolic (congestive) heart failure Code(s): I50.33 - ACUTE ON CHRONIC DIASTOLIC (CONGESTIVE) HEART FAILURE Assessment/Plan 75 year old male with acute on chronic hypercapnic, hypoxic respiratory failure , pneumonia (hx of MRSA sepsis) and acute exacerbation COPD and obesity. Hx DVT and pt on anticoagulation. Still needs Bipap much of the time Suggest: Antibiotics per I.D. Diuretic Prednisone Inhaled bronchodilators O2 to maintain SaO2 greater than 90. NIPPV at night and PRN
[2016-08-15] MEDS: ERTAPENEM SODIUM 1 GM in SODIUM CHLORIDE 50 ML IVPB SCH (18:30)
[2016-08-15] MEDS: ATORVASTATIN CA 20 MG TABLET (FP) PO SCH (21:34)
[2016-08-15] MEDS: ACETAMINOPHEN 325 MG TABLET (FP) PO PRN (21:35)
[2016-08-16] MEDS: ALBUTEROL SO4 2.5/IPRATROPIUM 0.5 INH SOL 3 ML VIAL.NEB. NEB SCH ×6 (00:10→23:40)
[2016-08-16] MEDS: CLINDAMYCIN HCL 150 MG CAPSULE (FP) PO SCH ×4 (00:15→17:45)
[2016-08-16] MEDS: CHLORHEXIDINE GLUCONATE 4% CLEANSER FOR DECOLONIZATION TP SCH ×2 (00:15→22:15)
[2016-08-16] MEDS ORDERED: FUROSEMIDE 40 MG/4 ML INJECTABLE VIAL IVPUSH SCH (06:00)
[2016-08-16 06:14] LABS: BASOPHIL 0.4 % (0-2.0); EOSINOPHIL 0.5 % (0-4.5); MCH 28.3 pg (25.7-33.7); MCHC 31.9 g/dl (32.0-35.9); MEAN CELL VOLUME 88.6 fl (80-96); MEAN PLT VOLUME 7.1 fl (7.5-11.1); NEUTROPHILS 84.2 % (42.8-82.8); PLATELET COUNT 213 K/MM3 (134-434); RDW 17.1 % (11.9-15.9); WHITE BLOOD COUNT 9.7 K/mm3 (4.0-10.0)
[2016-08-16 06:48] LABS: ALBUMIN 2.5 g/dl (3.4-5.0); CREATININE 1.8 mg/dL (0.7-1.3); MAGNESIUM 2.5 mg/dL (1.8-2.4); PHOSPHOROUS 4.1 mg/dL (2.5-4.9)
[2016-08-16 06:51] LABS: BILIRUBIN,TOTAL 0.4 mg/dL (0.2-1.0)
[2016-08-16 09:00] LABS: INR 1.15 (0.82-1.09); PROTHROMBIN TIME (PATIENT) 12.7 SEC (9.98-11.88)
[2016-08-16 09:03] LABS: ACTIVATED PTT 28.1 SECONDS (26.9-34.4)
--- NOTE | 2016-08-16 09:15 | PN ---
Progress Note, Physician Chief Complaint: breathing more labored CXR w/ increased atelectasis Left lung, increased effusion CT chest done TELE: NSR w/ rare VPCs History of Present Illness: On BiPap - Current Medication List Current Medications: Active Medications Acetaminophen (Tylenol -) 650 mg PO Q6H PRN PRN Reason: PAIN Last Admin: 08/15/16 21:35 Dose: 650 mg Albuterol/Ipratropium (Duoneb -) 1 amp NEB QIDR [facility] Last Admin: 08/16/16 06:38 Dose: 1 amp Amlodipine Besylate (Norvasc -) 10 mg PO DAILY [facility] Last Admin: 08/15/16 10:22 Dose: 10 mg Apixaban (Eliquis -) 2.5 mg PO BID [facility] Last Admin: 08/15/16 21:34 Dose: 2.5 mg Aspirin (Ecotrin -) 81 mg PO DAILY [facility] Last Admin: 08/15/16 10:22 Dose: 81 mg Atorvastatin Calcium (Lipitor -) 20 mg PO HS [facility] Last Admin: 08/15/16 21:34 Dose: 20 mg Bupropion HCl (Wellbutrin Xl -) 150 mg PO DAILY [facility] Last Admin: 08/15/16 10:26 Dose: 150 mg Chlorhexidine Gluconate (Hibiclens For Decolonization -) 1 applic TP HS [facility] Last Admin: 08/16/16 00:15 Dose: 1 applic Clindamycin HCl (Cleocin -) 300 mg PO Q6HPO [facility] Last Admin: 08/16/16 06:06 Dose: 300 mg Docusate Sodium (Colace -) 100 mg PO BID [facility] Last Admin: 08/15/16 21:34 Dose: 100 mg Duloxetine HCl (Cymbalta -) 60 mg PO DAILY [facility] Last Admin: 08/15/16 10:19 Dose: 60 mg Emollient Ointment (Aquaphor -) 1 applic TP BID [facility] Last Admin: 08/15/16 21:37 Dose: 1 applic Epoetin Keith (Procrit -) 10,000 unit SQ MoWeFr@1000 [facility] Ferrous Sulfate (Feosol -) 325 mg PO BID [facility] Last Admin: 08/15/16 21:34 Dose: 325 mg Furosemide (Lasix Injection -) 40 mg IVPUSH BID@0600,1400 [facility] Last Admin: 08/16/16 06:07 Dose: 40 mg Guaifenesin (Robitussin Dm -) 10 ml PO Q6H PRN PRN Reason: COUGH Last Admin: 08/15/16 10:28 Dose: 10 ml Ertapenem 1 gm/ Sodium (Chloride) 50 mls @ 100 mls/hr IVPB DAILY [facility] PRN Reason: Protocol Last Admin: 08/15/16 18:30 Dose: 100 mls/hr Metoprolol Tartrate (Lopressor -) 25 mg PO BID [facility] Last Admin: 08/15/16 21:34 Dose: 25 mg Mupirocin (Bactroban Ointment (For Decolonization) -) 1 applic NS BID [facility] Stop: 08/16/16 21:59 Last Admin: 08/15/16 21:36 Dose: 1 applic Non-Formulary Medication (Fluticasone/Vilanterol [Breo Ellipta 100-25 Mcg Inh]) 1 each IH DAILY [facility] Nystatin (Nystop Powder -) 1 applic TP DAILY [facility] Last Admin: 08/15/16 13:26 Dose: 1 applic Pantoprazole Sodium (Protonix -) 40 mg PO DAILY [facility] Last Admin: 08/15/16 13:25 Dose: 40 mg Polyethylene Glycol (Miralax (For Daily Use) -) 17 gm PO DAILY [facility] Last Admin: 08/15/16 10:23 Dose: 17 grams Prednisone (Deltasone -) 40 mg PO DAILY [facility] Last Admin: 08/15/16 10:20 Dose: 40 mg Senna (Senna -) 2 tab PO DAILY [facility] Last Admin: 08/15/16 10:21 Dose: 2 tab Tamsulosin HCl (Flomax -) 0.4 mg PO DAILY@0830 [facility] Last Admin: 08/15/16 09:25 Dose: 0.4 mg - Objective Vital Signs: Vital Signs Temperature 97.8 F 08/16/16 06:00 Pulse Rate 54 L 08/16/16 06:00 Respiratory Rate 18 08/16/16 06:00 Blood Pressure 125/89 08/16/16 06:00 O2 Sat by Pulse Oximetry (%) 98 08/15/16 19:47 Cardiovascular: Yes: Regular Rate and Rhythm Respiratory: Yes: Other (decreased breath sounds left. No wheezing) Gastrointestinal: Yes: Soft, Abdomen, Obese Edema: Yes Edema: LLE: 1+, RLE: 1+ Neurological: Yes: Alert Labs: CBC, BMP 08/16/16 05:10 08/16/16 05:10 INR, PTT INR 1.15 (0.82-1.09) H 08/16/16 08:27 Laboratory Tests 08/16/16 08/16/16 05:10 05:10 WBC 9.7 Hgb 8.2 L Plt Count 213 Sodium 147 H Potassium 4.4 BUN 61 H D Creatinine 1.8 H Assessment/Plan Assessment/Plan 75 year old man with a history of HTN, COPD on home O2, Chronic combined systolic/diastolic CHF, CKD, JOY, CAD moderate LV systolic dysfunction, cardiac cath 03/2015 showed 2VD with RCA and LAD disease s/p PCI with ABDON of RCA 2014 and staged PCI of LAD in 04/2015 with significant improvement in symptoms for some time, followed by multiple admissions for respiratory failure, sepsis, KARLOS, has been in NH, recently tx for presumed PNA, admitted with sob and recurrent pleural effusions. SOB-multifactorial, PNA, AE COPD, pleural effusions, acute on chronic combined systolic/diastolic CHF -Contine Bipap -s/p thoracentesis with improvement in symptoms, as per report pleural fluid appeared transudative. -Now with increased consolidation, effusion left awaits CT -Continue IV Lasix -last echo 05/2016 showed normal LV systolic function, no sig valvular abnl -receiving steroids and Abx CAD-PCI with ABDON of RCA 03/2015 and staged PCI of LAD in 04/2015 -echo as above -cont ASA -cont lipitor -cont lopressor if tolerates from a copd standpoint DVT-LLE -on eliquis adjusted for renal fxn
[2016-08-16] MEDS ORDERED: PT OWN MED DRAWER 7, Y5N ONE ×2 (09:27→12:25)
[2016-08-16] MEDS: SENNOSIDES 8.6MG TABLET (FP) PO SCH (09:29)
[2016-08-16] MEDS: APIXABAN 2.5 MG TABLET PO SCH ×2 (09:29→22:15)
[2016-08-16] MEDS: predniSONE 20 MG TABLET (UD) PO SCH (09:29)
[2016-08-16] MEDS: PANTOPRAZOLE 40 MG TABLET (FP) PO SCH (09:30)
[2016-08-16] MEDS: FERROUS SO4 325 MG TABLET (FP) PO SCH ×2 (09:30→22:14)
[2016-08-16] MEDS: TAMSULOSIN HCL 0.4 MG CAP.ER.24H (FP) PO SCH (09:30)
[2016-08-16] MEDS: DOCUSATE SODIUM 100 MG CAPSULE (FP) PO SCH ×2 (09:30→22:14)
[2016-08-16] MEDS: ASPIRIN COATED 81 MG TABLET.EC PO SCH (09:30)
[2016-08-16] MEDS: ERTAPENEM SODIUM 1 GM in SODIUM CHLORIDE 50 ML IVPB SCH (09:30)
[2016-08-16] MEDS: METOPROLOL TARTRATE 25 MG TABLET (FP) PO SCH ×2 (09:30→22:15)
[2016-08-16] MEDS: amLODIPine BESYLATE 10 MG TABLET (FP) PO SCH (09:30)
[2016-08-16] MEDS: DULoxetine HCL 30 MG CAPSULE.DR (FP) PO SCH (09:30)
[2016-08-16] MEDS: MUPIROCIN 2% TOPICAL OINTMENT FOR DECOLONIZATION NS SCH (09:31)
[2016-08-16] MEDS: NYSTATIN POWDER 100,000 UNITS/GM - 15 GM TOPICAL POWDER TP SCH (09:32)
[2016-08-16] MEDS: MINERAL OIL/PET HY-PHL TOPICAL OINTMENT 454 GM JAR TP SCH ×2 (09:32→22:07)
[2016-08-16] MEDS: POLYETHYLENE GLYCOL 3350 119 GM BTL PO SCH (09:33)
[2016-08-16] MEDS ORDERED: EPOETIN ALFA 10,000 UNIT/1 ML VIAL SQ SCH (10:00)
--- NOTE | 2016-08-16 11:08 | PN ---
Physical Exam: SUBJECTIVE: Patient seen and examined OBJECTIVE: Vital Signs Period Temp Pulse Resp BP Sys/Carmona Pulse Ox Last 24 Hr 97.8 F-99 F 54-65 16-21 113-125/45-89 86-99 GENERAL: The patient is awake, alert, and fully oriented, in no acute distress. HEAD: Normal with no signs of trauma. EYES: PERRL, extraocular movements intact, sclera anicteric, conjunctiva clear. No ptosis. ENT: Ears normal, nares patent, oropharynx clear without exudates, moist mucous membranes. NECK: Trachea midline, full range of motion, supple. LUNGS: Breath sounds equal, clear to auscultation bilaterally, no wheezes, no crackles, no accessory muscle use. HEART: Regular rate and rhythm, S1, S2 without murmur, rub or gallop. ABDOMEN: Soft, nontender, nondistended, normoactive bowel sounds, no guarding, no rebound, no hepatosplenomegaly, no masses. EXTREMITIES: 2+ pulses, warm, well-perfused, no edema. NEUROLOGICAL: Cranial nerves II through XII grossly intact. Normal speech, gait not observed. PSYCH: Normal mood, normal affect. SKIN: Warm, dry, normal turgor, no rashes or lesions noted Laboratory Results - last 24 hr 08/16/16 08/16/16 08/16/16 05:10 05:10 05:54 WBC 9.7 RBC 2.90 L Hgb 8.2 L Hct 25.7 L MCV 88.6 MCHC 31.9 L RDW 17.1 H Plt Count 213 MPV 7.1 L Neutrophils % 84.2 H Lymphocytes % 8.8 D Monocytes % 6.1 Eosinophils % 0.5 D Basophils % 0.4 INR PTT (Actin FS) Sodium 147 H Potassium 4.4 Chloride 99 Carbon Dioxide 35 H Anion Gap 13 BUN 61 H D Creatinine 1.8 H Creat Clearance w eGFR 37.17 POC Glucometer [id number] Random Glucose 92 Calcium 8.0 L Phosphorus 4.1 Magnesium 2.5 H Total Bilirubin 0.4 AST 10 L ALT 12 Alkaline Phosphatase 55 Total Protein 5.0 L Albumin 2.5 L 08/16/16 08:27 WBC RBC Hgb Hct MCV MCHC RDW Plt Count MPV Neutrophils % Lymphocytes % Monocytes % Eosinophils % Basophils % INR 1.15 H PTT (Actin FS) 28.1 Sodium Potassium Chloride Carbon Dioxide Anion Gap BUN Creatinine Creat Clearance w eGFR POC Glucometer Random Glucose Calcium Phosphorus Magnesium Total Bilirubin AST ALT Alkaline Phosphatase Total Protein Albumin Active Medications Generic Name Dose Route Start Last Admin Trade Name Freq PRN Reason Stop Dose Admin Acetaminophen 650 mg 08/14/16 17:14 08/15/16 21:35 Tylenol - PO 650 mg Q6H PRN Administration PAIN Albuterol/Ipratropium 1 amp 08/14/16 18:00 08/16/16 06:38 Duoneb - NEB 1 amp QIDR [facility] Administration Amlodipine Besylate 10 mg 08/15/16 10:00 08/16/16 09:30 Norvasc - PO 10 mg DAILY [facility] Administration Apixaban 2.5 mg 08/14/16 22:00 08/16/16 09:29 Eliquis - PO 2.5 mg BID [facility] Administration Aspirin 81 mg 08/15/16 10:00 08/16/16 09:30 Ecotrin - PO 81 mg DAILY [facility] Administration Atorvastatin Calcium 20 mg 08/14/16 22:00 08/15/16 21:34 Lipitor - PO 20 mg HS [facility] Administration Bupropion HCl 150 mg 08/15/16 10:00 08/15/16 10:26 Wellbutrin Xl - PO 150 mg DAILY [facility] Administration Chlorhexidine Gluconate 1 applic 08/14/16 22:00 08/16/16 00:15 Hibiclens For Decolonization - TP 1 applic HS [facility] Administration Clindamycin HCl 300 mg 08/15/16 00:00 08/16/16 06:06 Cleocin - PO 300 mg Q6HPO [facility] Administration Docusate Sodium 100 mg 08/14/16 22:00 08/16/16 09:30 Colace - PO 100 mg BID [facility] Administration Duloxetine HCl 60 mg 08/15/16 10:00 08/16/16 09:30 Cymbalta - PO 60 mg DAILY [facility] Administration Emollient Ointment 1 applic 08/14/16 22:00 08/16/16 09:32 Aquaphor - TP 1 applic BID [facility] Administration Epoetin Keith 10,000 unit 08/16/16 10:00 Procrit - SQ MoWeFr@1000 [facility] Ferrous Sulfate 325 mg 08/14/16 22:00 08/16/16 09:30 Feosol - PO 325 mg BID [facility] Administration Furosemide 40 mg 08/16/16 06:00 08/16/16 06:07 Lasix Injection - IVPUSH 40 mg BID@0600,1400 [facility] Administration Guaifenesin 10 ml 08/14/16 17:14 08/15/16 10:28 Robitussin Dm - PO 10 ml Q6H PRN Administration COUGH Ertapenem 1 gm/ Sodium 50 mls @ 100 mls/hr 08/15/16 18:15 08/16/16 09:30 Chloride IVPB 100 mls/hr DAILY [facility] Administration Protocol Metoprolol Tartrate 25 mg 08/14/16 22:00 08/16/16 09:30 Lopressor - PO 25 mg BID [facility] Administration Mupirocin 1 applic 08/14/16 22:00 08/16/16 09:31 Bactroban Ointment (For Decolonization) - NS 08/16/16 21:59 1 applic BID [facility] Administration Non-Formulary Medication 1 each 08/15/16 10:00 Fluticasone/Vilanterol [Breo Ellipta 100-25 Mcg Inh] IH DAILY [facility] Nystatin 1 applic 08/15/16 10:00 08/16/16 09:32 Nystop Powder - TP 1 applic DAILY [facility] Administration Pantoprazole Sodium 40 mg 08/15/16 10:00 08/16/16 09:30 Protonix - PO 40 mg DAILY [facility] Administration Polyethylene Glycol 17 gm 08/14/16 15:15 08/16/16 09:33 Miralax (For Daily Use) - PO 17 grams DAILY [facility] Administration Prednisone 40 mg 08/15/16 10:00 08/16/16 09:29 Deltasone - PO 40 mg DAILY [facility] Administration Senna 2 tab 08/15/16 10:00 08/16/16 09:29 Senna - PO 2 tab DAILY [facility] Administration Tamsulosin HCl 0.4 mg 08/15/16 08:30 08/16/16 09:30 Flomax - PO 0.4 mg DAILY@0830 [facility] Administration ASSESSMENT/PLAN: 75 year-old male with a significant PMH of HTN, HLD, CAD s/p stents x 2 (2014), diastolic heart failure, afib, COPD, respiratory failure requiring intubation ( 02/1016-04/2016), GI bleed, h/o DVT and PE. SNF resident. Admitted for respiratory failure, HCAP, left pleural effusion, and acute on chronic renal failure. Left lung collapse/atelectasis Bilateral pleural effusions Acute on chronic respiratory failure --overnight left lung complete atelectasis with bilateral pleural effusions --continuous BIPAP, chest PT, percussion bed module; if does not improve may need bronch --afebrile, no leukocytosis HCAP --meropenem (day #4) and clindamycin (day #4) --duonebs scheduled and PRN COPD exacerbation --continue prednisone, duonebs, inhaler Acute on chronic diastolic heart failure --Lasix IV back up to 80 BID Paroxysmal atrial fibrillation --back in sinus rhythm --rate low 60s --continue low dose metoprolol --continue Eliquis Acute on chronic renal failure --2.2 on admission, 1.8 today (baseline 1.5) --decrease lasix IV to 40 BID Hypertension --BP well-controlled --continue amlodipine, metoprolol Hyperlipidemia --not on a statin CAD s/p stents --continue ASA h/o DVT and PE --on Eliquis F/E/N Fluids: PO intake adequate Electrolytes: replete as indicated Nutrition: diabetic, low sodium DVT prophylaxis: on Eliquis; oob, ambulation Physical therapy evaluation Dispo: continues to require inpatient care. Full Code. Visit type - Emergency Visit Emergency Visit: Yes ED Registration Date: 08/11/16 Care time: The patient presented to the Emergency Department on the above date and was hospitalized for further evaluation of their emergent condition. - New Patient This patient is new to me today: No - Critical Care Critical Care patient: Yes Total Critical Care Time (in minutes): 35 Critical Care Statement: The care of this patient involved high complexity decision making to prevent further life threatening deterioration of the patient 's condition and/or to evalute & treat vital organ system(s) failure or risk of failure.
[2016-08-16] MEDS: EPOETIN ALFA 10,000 UNIT/1 ML VIAL SQ SCH ×2 (12:24→17:52)
--- NOTE | 2016-08-16 12:45 | PN ---
Teaching Attending Note Name of Resident: Jenelle Nava ATTENDING PHYSICIAN STATEMENT I saw and evaluated the patient. I reviewed the resident's note and discussed the case with the resident. I agree with the resident's findings and plan as documented. SUBJECTIVE: Pt seen and examined in the ICU. CXR showing worsening atelectasis/effusion confirmed by CT chest. Now on BiPAP with fluctuating sats. OBJECTIVE: Last Vital Signs Temp Pulse Resp BP Pulse Ox 97.6 F 66 18 129/69 86 L 08/16/16 10:00 08/16/16 12:00 08/16/16 12:00 08/16/16 12:00 08/16/16 10:00 Intake & Output 08/13/16 08/14/16 08/15/16 08/16/16 23:59 23:59 23:59 23:59 Intake Total 1500 1690 2310 300 Output Total 1910 2400 2700 500 Balance -410 -710 -390 -200 Weight 220 lb 0.341 oz 221 lb 1.978 oz 221 lb 2 oz 221 lb 9.033 oz Gen: mildly tachypneic on BiPAP Heart: RRR Lung: decreased breath sounds on left Abd: soft, nontender Ext: + edema, chronic stasis changes CBC, BMP 08/16/16 05:10 08/16/16 05:10 Active Medications Acetaminophen (Tylenol -) 650 mg PO Q6H PRN PRN Reason: PAIN Last Admin: 08/15/16 21:35 Dose: 650 mg Acetylcysteine (Mucomyst 20 Oral / Inh Use Only*) 600 mg NEB QIDR [facility] Albuterol/Ipratropium (Duoneb -) 1 amp NEB QIDR [facility] Amlodipine Besylate (Norvasc -) 10 mg PO DAILY [facility] Last Admin: 08/16/16 09:30 Dose: 10 mg Apixaban (Eliquis -) 2.5 mg PO BID [facility] Last Admin: 08/16/16 09:29 Dose: 2.5 mg Aspirin (Ecotrin -) 81 mg PO DAILY [facility] Last Admin: 08/16/16 09:30 Dose: 81 mg Atorvastatin Calcium (Lipitor -) 20 mg PO HS [facility] Last Admin: 08/15/16 21:34 Dose: 20 mg Bupropion HCl (Wellbutrin Xl -) 150 mg PO DAILY [facility] Last Admin: 08/16/16 12:23 Dose: 150 mg Chlorhexidine Gluconate (Hibiclens For Decolonization -) 1 applic TP HS [facility] Last Admin: 08/16/16 00:15 Dose: 1 applic Clindamycin HCl (Cleocin -) 300 mg PO Q6HPO [facility] Last Admin: 08/16/16 06:06 Dose: 300 mg Docusate Sodium (Colace -) 100 mg PO BID [facility] Last Admin: 08/16/16 09:30 Dose: 100 mg Duloxetine HCl (Cymbalta -) 60 mg PO DAILY [facility] Last Admin: 08/16/16 09:30 Dose: 60 mg Emollient Ointment (Aquaphor -) 1 applic TP BID [facility] Last Admin: 08/16/16 09:32 Dose: 1 applic Epoetin Keith (Procrit -) 10,000 unit SQ MoWeFr@1000 [facility] Last Admin: 08/16/16 12:24 Dose: 10,000 unit Ferrous Sulfate (Feosol -) 325 mg PO BID [facility] Last Admin: 08/16/16 09:30 Dose: 325 mg Furosemide (Lasix Injection -) 80 mg IVPUSH BID@0600,1400 [facility] Guaifenesin (Robitussin Dm -) 10 ml PO Q6H PRN PRN Reason: COUGH Last Admin: 08/15/16 10:28 Dose: 10 ml Ertapenem 1 gm/ Sodium (Chloride) 50 mls @ 100 mls/hr IVPB DAILY [facility] PRN Reason: Protocol Last Admin: 08/16/16 09:30 Dose: 100 mls/hr Metoprolol Tartrate (Lopressor -) 25 mg PO BID [facility] Last Admin: 08/16/16 09:30 Dose: 25 mg Mupirocin (Bactroban Ointment (For Decolonization) -) 1 applic NS BID [facility] Stop: 08/16/16 21:59 Last Admin: 08/16/16 09:31 Dose: 1 applic Non-Formulary Medication (Fluticasone/Vilanterol [Breo Ellipta 100-25 Mcg Inh]) 1 each IH DAILY [facility] Nystatin (Nystop Powder -) 1 applic TP DAILY [facility] Last Admin: 08/16/16 09:32 Dose: 1 applic Pantoprazole Sodium (Protonix -) 40 mg PO DAILY [facility] Last Admin: 08/16/16 09:30 Dose: 40 mg Polyethylene Glycol (Miralax (For Daily Use) -) 17 gm PO DAILY [facility] Last Admin: 08/16/16 09:33 Dose: 17 grams Prednisone (Deltasone -) 40 mg PO DAILY [facility] Last Admin: 08/16/16 09:29 Dose: 40 mg Senna (Senna -) 2 tab PO DAILY [facility] Last Admin: 08/16/16 09:29 Dose: 2 tab Tamsulosin HCl (Flomax -) 0.4 mg PO DAILY@0830 [facility] Last Admin: 08/16/16 09:30 Dose: 0.4 mg ASSESSMENT AND PLAN: Acute on Chronic Hypoxic and Hypercapneic Respiratory Failure Acute on Chronic Diastolic Heart Failure Pleural Effusion Acute on Chronic Renal Failure Atelectasis Atrial fibrillation CAD s/p stents COPD HTN Hyperlipidemia h/o PE/DVT h/o GI Bleed - start mucolytics - chest PT, bed percussion - position right side down - BiPAP, adjusted pressures - O2 to keep SPo2 >90% - continue lasix - monitor urine output, creatinine - monitor CXR - rate controlled - continue anticoagulation - discussed with pt and if atelectasis does not improve with non-invasive measures, there is option of bronchoscopy but pt would likely be intubated critical care time spent in reviewing chart, evaluating patient and formulating plan 38 min
[2016-08-16] MEDS: FUROSEMIDE 40 MG/4 ML INJECTABLE VIAL IVPUSH SCH (13:37)
--- NOTE | 2016-08-16 13:45 | PN ---
Physical Exam: SUBJECTIVE: Patient seen and examined. He is feeling the same as yesterday. On BiPap. OBJECTIVE: Vital Signs Period Temp Pulse Resp BP Sys/[place]ona Pulse Ox Last 24 Hr 97.6 F-99 F 54-66 16-22 113-129/45-89 86-98 GENERAL: The patient is awake, alert, and fully oriented, in no acute distress, on VM. HEAD: Normal with no signs of trauma. EYES: PERRL, conjunctiva clear. ENT: Ears normal, nares patent, moist mucous membranes. NECK: Trachea midline, full range of motion, supple. LUNGS: Breath sounds equal, diminished B/L, no crackles, no accessory muscle use. HEART: Regular rate and rhythm, S1, S2 without murmur, rub or gallop. ABDOMEN: Soft, nontender, nondistended, normoactive bowel sounds, no guarding, no rebound, no masses. EXTREMITIES: 2+ pulses, warm, well-perfused, 1+ LE edema and mild erythema in LE B/L, warm to touch, venous stasis changes in LE B/L. NEUROLOGICAL:No facial asymmetry, normal speech, gait not observed. PSYCH: Normal mood, normal affect. SKIN: Warm, dry, normal turgor, lower extremities venous stasis changes B/L. Laboratory Results - last 24 hr 08/16/16 08/16/16 08/16/16 05:10 05:10 05:54 WBC 9.7 RBC 2.90 L Hgb 8.2 L Hct 25.7 L MCV 88.6 MCHC 31.9 L RDW 17.1 H Plt Count 213 MPV 7.1 L Neutrophils % 84.2 H Lymphocytes % 8.8 D Monocytes % 6.1 Eosinophils % 0.5 D Basophils % 0.4 INR PTT (Actin FS) Sodium 147 H Potassium 4.4 Chloride 99 Carbon Dioxide 35 H Anion Gap 13 BUN 61 H D Creatinine 1.8 H Creat Clearance w eGFR 37.17 POC Glucometer 107.45505 Random Glucose 92 Calcium 8.0 L Phosphorus 4.1 Magnesium 2.5 H Total Bilirubin 0.4 AST 10 L ALT 12 Alkaline Phosphatase 55 Total Protein 5.0 L Albumin 2.5 L 08/16/16 08:27 WBC RBC Hgb Hct MCV MCHC RDW Plt Count MPV Neutrophils % Lymphocytes % Monocytes % Eosinophils % Basophils % INR 1.15 H PTT (Actin FS) 28.1 Sodium Potassium Chloride Carbon Dioxide Anion Gap BUN Creatinine Creat Clearance w eGFR POC Glucometer Random Glucose Calcium Phosphorus Magnesium Total Bilirubin AST ALT Alkaline Phosphatase Total Protein Albumin Active Medications Generic Name Dose Route Start Last Admin Trade Name Freq PRN Reason Stop Dose Admin Acetaminophen 650 mg 08/14/16 17:14 08/15/16 21:35 Tylenol - PO 650 mg Q6H PRN Administration PAIN Acetylcysteine 600 mg 08/16/16 12:30 Mucomyst 20 Oral / Inh Use Only* NEB QIDR [facility] Albuterol/Ipratropium 1 amp 08/16/16 11:34 Duoneb - NEB QIDR [facility] Amlodipine Besylate 10 mg 08/15/16 10:00 08/16/16 09:30 Norvasc - PO 10 mg DAILY [facility] Administration Apixaban 2.5 mg 08/14/16 22:00 08/16/16 09:29 Eliquis - PO 2.5 mg BID [facility] Administration Aspirin 81 mg 08/15/16 10:00 08/16/16 09:30 Ecotrin - PO 81 mg DAILY [facility] Administration Atorvastatin Calcium 20 mg 08/14/16 22:00 08/15/16 21:34 Lipitor - PO 20 mg HS [facility] Administration Bupropion HCl 150 mg 08/15/16 10:00 08/16/16 12:23 Wellbutrin Xl - PO 150 mg DAILY [facility] Administration Chlorhexidine Gluconate 1 applic 08/14/16 22:00 08/16/16 00:15 Hibiclens For Decolonization - TP 1 applic HS [facility] Administration Clindamycin HCl 300 mg 08/15/16 00:00 08/16/16 13:37 Cleocin - PO 300 mg Q6HPO [facility] Administration Docusate Sodium 100 mg 08/14/16 22:00 08/16/16 09:30 Colace - PO 100 mg BID [facility] Administration Duloxetine HCl 60 mg 08/15/16 10:00 08/16/16 09:30 Cymbalta - PO 60 mg DAILY [facility] Administration Emollient Ointment 1 applic 08/14/16 22:00 08/16/16 09:32 Aquaphor - TP 1 applic BID [facility] Administration Epoetin Keith 10,000 unit 08/16/16 10:00 08/16/16 12:24 Procrit - SQ 10,000 unit MoWeFr@1000 [facility] Administration Ferrous Sulfate 325 mg 08/14/16 22:00 08/16/16 09:30 Feosol - PO 325 mg BID [facility] Administration Furosemide 80 mg 08/16/16 14:00 08/16/16 13:37 Lasix Injection - IVPUSH 80 mg BID@0600,1400 [facility] Administration Guaifenesin 10 ml 08/14/16 17:14 08/15/16 10:28 Robitussin Dm - PO 10 ml Q6H PRN Administration COUGH Ertapenem 1 gm/ Sodium 50 mls @ 100 mls/hr 08/15/16 18:15 08/16/16 09:30 Chloride IVPB 100 mls/hr DAILY [facility] Administration Protocol Metoprolol Tartrate 25 mg 08/14/16 22:00 08/16/16 09:30 Lopressor - PO 25 mg BID [facility] Administration Mupirocin 1 applic 08/14/16 22:00 08/16/16 09:31 Bactroban Ointment (For Decolonization) - NS 08/16/16 21:59 1 applic BID [facility] Administration Non-Formulary Medication 1 each 08/15/16 10:00 Fluticasone/Vilanterol [Breo Ellipta 100-25 Mcg Inh] IH DAILY [facility] Nystatin 1 applic 08/15/16 10:00 08/16/16 09:32 Nystop Powder - TP 1 applic DAILY [facility] Administration Pantoprazole Sodium 40 mg 08/15/16 10:00 08/16/16 09:30 Protonix - PO 40 mg DAILY [facility] Administration Polyethylene Glycol 17 gm 08/14/16 15:15 08/16/16 09:33 Miralax (For Daily Use) - PO 17 grams DAILY [facility] Administration Prednisone 40 mg 08/15/16 10:00 08/16/16 09:29 Deltasone - PO 40 mg DAILY [facility] Administration Senna 2 tab 08/15/16 10:00 08/16/16 09:29 Senna - PO 2 tab DAILY [facility] Administration Tamsulosin HCl 0.4 mg 08/15/16 08:30 08/16/16 09:30 Flomax - PO 0.4 mg DAILY@0830 [facility] Administration CXR today:Increased atelectasis of the left lung, with left pleural effusion CT chest: 1. Atelectasis of the left lung with moderate pleural effusion. 2. Moderate right pleural effusion with lower lobe atelectasis. Please see above discussion. ASSESSMENT/PLAN: 75 year old man with a history of HTN, COPD on home O2, chronic systolic/ diastolic CHF, CKD, JOY, CAD s/p 2 stents, GI bleed, GERD, , TIA, anemia, multiple admissions for respiratory failure, sepsis, KARLOS, has been in NH, recently tx for presumed PNA, admitted with sob and recurrent pleural effusions and cough. Pulmonary; SOB-multifactorial, PNA, COPD, pleural effusions, -worsened CXR today, confirmed with CT chest and US at bedside, added repositioning the pt, chest PT and mucomyst INH, duonebs -no recommendation for thoracenthesis for now -s/p thoracentesis, fluid appeared transudative -continue prednisone CVA: -will continue diuresis: Lasix -monitor strict I/Os and daily weights -cont Lopressor 25mg bid -not on PIPER-I currently due to fluctuating renal function in the past -cont ASA -cont lipitor -cont lopressor ID: -continue antibiotics for cellulitis Ertapenem and Clindamycin Nephro: -monitor BUN/Creat, electrolytes, keep k=4, Mg=2 -last echo 05/2016 showed normal LV systolic function, no sig valvular abnl -receiving steroids and Abx DVT -on eliquis Disposition: pending transfer to med surg Visit type - Emergency Visit Emergency Visit: Yes ED Registration Date: 08/11/16 Care time: The patient presented to the Emergency Department on the above date and was hospitalized for further evaluation of their emergent condition. - New Patient This patient is new to me today: No - Critical Care Critical Care patient: Yes Total Critical Care Time (in minutes): 30 Critical Care Statement: The care of this patient involved high complexity decision making to prevent further life threatening deterioration of the patient 's condition and/or to evalute & treat vital organ system(s) failure or risk of failure.
[2016-08-16] MEDS: ACETYLCYSTEINE 20% 200MG/ML 4 ML VIAL *FOR ORAL / INH USE ONLY NEB SCH (18:26)
[2016-08-16] MEDS: ATORVASTATIN CA 20 MG TABLET (FP) PO SCH (22:15)
[2016-08-17] MEDS: ACETYLCYSTEINE 20% 200MG/ML 4 ML VIAL *FOR ORAL / INH USE ONLY NEB SCH ×5 (00:05→22:13)
[2016-08-17] MEDS: CLINDAMYCIN HCL 150 MG CAPSULE (FP) PO SCH ×4 (01:07→17:49)
[2016-08-17 06:25] LABS: MCH 28.6 pg (25.7-33.7); MCHC 32.5 g/dl (32.0-35.9); MEAN CELL VOLUME 87.9 fl (80-96); MEAN PLT VOLUME 7.1 fl (7.5-11.1); PLATELET COUNT 264 K/MM3 (134-434); WHITE BLOOD COUNT 10.5 K/mm3 (4.0-10.0)
[2016-08-17] MEDS: FUROSEMIDE 40 MG/4 ML INJECTABLE VIAL IVPUSH SCH ×2 (06:32→13:56)
[2016-08-17] MEDS: ALBUTEROL SO4 2.5/IPRATROPIUM 0.5 INH SOL 3 ML VIAL.NEB. NEB SCH (06:35)
[2016-08-17 06:47] LABS: ALBUMIN 2.6 g/dl (3.4-5.0); BILIRUBIN,TOTAL 0.4 mg/dL (0.2-1.0); CALCIUM 8.2 mg/dL (8.5-10.1); COCKROFT - GAULT 50.53; CREATININE 1.8 mg/dL (0.7-1.3); MAGNESIUM 2.7 mg/dL (1.8-2.4); TOT PROT 5.2 g/dl (6.4-8.2)
--- NOTE | 2016-08-17 08:57 | PN ---
Progress Note, Physician Chief Complaint: TELE: NSR, artifact Chest CT: noted, atelectasis left - Current Medication List Current Medications: Active Medications Acetaminophen (Tylenol -) 650 mg PO Q6H PRN PRN Reason: PAIN Last Admin: 08/15/16 21:35 Dose: 650 mg Acetylcysteine (Mucomyst 20 Oral / Inh Use Only*) 600 mg NEB QIDR [facility] Last Admin: 08/17/16 06:35 Dose: Not Given Albuterol/Ipratropium (Duoneb -) 1 amp NEB QIDR [facility] Last Admin: 08/17/16 06:35 Dose: 1 amp Amlodipine Besylate (Norvasc -) 10 mg PO DAILY [facility] Last Admin: 08/16/16 09:30 Dose: 10 mg Apixaban (Eliquis -) 2.5 mg PO BID [facility] Last Admin: 08/16/16 22:15 Dose: 2.5 mg Aspirin (Ecotrin -) 81 mg PO DAILY [facility] Last Admin: 08/16/16 09:30 Dose: 81 mg Atorvastatin Calcium (Lipitor -) 20 mg PO HS [facility] Last Admin: 08/16/16 22:15 Dose: 20 mg Bupropion HCl (Wellbutrin Xl -) 150 mg PO DAILY [facility] Last Admin: 08/16/16 12:23 Dose: 150 mg Chlorhexidine Gluconate (Hibiclens For Decolonization -) 1 applic TP HS [facility] Last Admin: 08/16/16 22:15 Dose: 1 applic Clindamycin HCl (Cleocin -) 300 mg PO Q6HPO [facility] Last Admin: 08/17/16 06:32 Dose: 300 mg Docusate Sodium (Colace -) 100 mg PO BID [facility] Last Admin: 08/16/16 22:14 Dose: 100 mg Duloxetine HCl (Cymbalta -) 60 mg PO DAILY [facility] Last Admin: 08/16/16 09:30 Dose: 60 mg Emollient Ointment (Aquaphor -) 1 applic TP BID [facility] Last Admin: 08/16/16 22:07 Dose: 1 applic Epoetin Keith (Procrit -) 10,000 unit SQ MoWeFr@1000 [facility] Last Admin: 08/16/16 17:52 Dose: Not Given Ferrous Sulfate (Feosol -) 325 mg PO BID [facility] Last Admin: 08/16/16 22:14 Dose: 325 mg Furosemide (Lasix Injection -) 80 mg IVPUSH BID@0600,1400 [facility] Last Admin: 08/17/16 06:32 Dose: 80 mg Guaifenesin (Robitussin Dm -) 10 ml PO Q6H PRN PRN Reason: COUGH Last Admin: 08/15/16 10:28 Dose: 10 ml Ertapenem 1 gm/ Sodium (Chloride) 50 mls @ 100 mls/hr IVPB DAILY [facility] PRN Reason: Protocol Last Admin: 08/16/16 09:30 Dose: 100 mls/hr Metoprolol Tartrate (Lopressor -) 25 mg PO BID [facility] Last Admin: 08/16/16 22:15 Dose: 25 mg Non-Formulary Medication (Fluticasone/Vilanterol [Breo Ellipta 100-25 Mcg Inh]) 1 each IH DAILY [facility] Nystatin (Nystop Powder -) 1 applic TP DAILY [facility] Last Admin: 08/16/16 09:32 Dose: 1 applic Pantoprazole Sodium (Protonix -) 40 mg PO DAILY [facility] Last Admin: 08/16/16 09:30 Dose: 40 mg Polyethylene Glycol (Miralax (For Daily Use) -) 17 gm PO DAILY [facility] Last Admin: 08/16/16 09:33 Dose: 17 grams Prednisone (Deltasone -) 40 mg PO DAILY [facility] Last Admin: 08/16/16 09:29 Dose: 40 mg Senna (Senna -) 2 tab PO DAILY [facility] Last Admin: 08/16/16 09:29 Dose: 2 tab Tamsulosin HCl (Flomax -) 0.4 mg PO DAILY@0830 [facility] Last Admin: 08/16/16 09:30 Dose: 0.4 mg - Objective Vital Signs: Vital Signs Temperature 98.4 F 08/17/16 07:14 Pulse Rate 54 L 08/17/16 08:00 Respiratory Rate 18 08/17/16 08:00 Blood Pressure 119/62 08/17/16 08:00 O2 Sat by Pulse Oximetry (%) 96 08/17/16 07:22 Constitutional: Yes: No Distress Cardiovascular: Yes: Regular Rate and Rhythm Respiratory: Yes: Other (decreased breath sounds left) Gastrointestinal: Yes: Soft, Abdomen, Obese Edema: Yes Edema: LLE: 1+, RLE: 1+ Neurological: Yes: Alert Labs: CBC, BMP 08/17/16 05:45 05/11/17 05:45 INR, PTT INR 1.15 (0.82-1.09) H 08/16/16 08:27 Laboratory Tests 08/17/16 08/17/16 05:45 05:45 WBC 10.5 H Hgb 8.6 L Hct 26.4 L Plt Count 264 D Sodium 143 Potassium 4.4 BUN 62 H Creatinine 1.8 H - ....Imaging EKG: Image Reviewed Assessment/Plan Assessment/Plan 75 year old man with a history of HTN, COPD on home O2, Chronic combined systolic/diastolic CHF, CKD, JOY, CAD moderate LV systolic dysfunction, cardiac cath 03/2015 showed 2VD with RCA and LAD disease s/p PCI with ABDON of RCA 2014 and staged PCI of LAD in 04/2015 with significant improvement in symptoms for some time, followed by multiple admissions for respiratory failure, sepsis, KARLOS, has been in [place], recently tx for presumed PNA, admitted with sob and recurrent pleural effusions. SOB-multifactorial, PNA, AE COPD, pleural effusions, acute on chronic combined systolic/diastolic CHF -Contine Bipap -s/p thoracentesis with improvement in symptoms, as per report pleural fluid appeared transudative. -Now with increased consolidation, CT showing atelectasis. -Continue IV Lasix -last echo 05/2016 showed normal LV systolic function, no sig valvular abnl -receiving steroids and Abx CAD-PCI with ABDON of RCA 03/2015 and staged PCI of LAD in 04/2015 -echo as above -cont ASA -cont lipitor -cont lopressor if tolerates from a copd standpoint DVT-LLE -on eliquis adjusted for renal fxn
[2016-08-17] MEDS ORDERED: PT OWN MED DRAWER 7, Y5N ONE (09:07)
[2016-08-17] MEDS: TAMSULOSIN HCL 0.4 MG CAP.ER.24H (FP) PO SCH (09:17)
[2016-08-17] MEDS: DULoxetine HCL 30 MG CAPSULE.DR (FP) PO SCH (09:18)
[2016-08-17] MEDS: ASPIRIN COATED 81 MG TABLET.EC PO SCH (09:18)
[2016-08-17] MEDS: MINERAL OIL/PET HY-PHL TOPICAL OINTMENT 454 GM JAR TP SCH ×2 (09:18→22:09)
[2016-08-17] MEDS: predniSONE 20 MG TABLET (UD) PO SCH (09:18)
[2016-08-17] MEDS: DOCUSATE SODIUM 100 MG CAPSULE (FP) PO SCH ×2 (09:18→22:09)
[2016-08-17] MEDS: FERROUS SO4 325 MG TABLET (FP) PO SCH ×2 (09:19→22:08)
[2016-08-17] MEDS: METOPROLOL TARTRATE 25 MG TABLET (FP) PO SCH ×2 (09:19→22:09)
[2016-08-17] MEDS: PANTOPRAZOLE 40 MG TABLET (FP) PO SCH (09:19)
[2016-08-17] MEDS: APIXABAN 2.5 MG TABLET PO SCH ×2 (09:19→22:08)
[2016-08-17] MEDS: SENNOSIDES 8.6MG TABLET (FP) PO SCH (09:19)
[2016-08-17] MEDS: amLODIPine BESYLATE 10 MG TABLET (FP) PO SCH (09:19)
[2016-08-17] MEDS: ERTAPENEM SODIUM 1 GM in SODIUM CHLORIDE 50 ML IVPB SCH (09:19)
[2016-08-17] MEDS: POLYETHYLENE GLYCOL 3350 119 GM BTL PO SCH (09:30)
[2016-08-17] MEDS: NYSTATIN POWDER 100,000 UNITS/GM - 15 GM TOPICAL POWDER TP SCH (09:36)
[2016-08-17] MEDS ORDERED: ALBUTEROL SO4 6.7 GM HFA INHALER IH PRN (11:51)
[2016-08-17] MEDS: ALBUTEROL SO4 0.083% IH SOL 2.5 MG/3 ML VIAL.NEB. NEB SCH ×2 (12:10→17:40)
--- NOTE | 2016-08-17 13:11 | PN ---
Teaching Attending Note Name of Resident: Jenelle Nava ATTENDING PHYSICIAN STATEMENT I saw and evaluated the patient. I reviewed the resident's note and discussed the case with the resident. I agree with the resident's findings and plan as documented. SUBJECTIVE: Patient seen and examined in the ICU. Awake and alert on NIPPV. Noted to desaturate quickly off NIPPV. Intake & Output 08/14/16 08/15/16 08/16/16 08/17/16 23:59 23:59 23:59 23:59 Intake Total 1690 2310 800 Output Total 2400 2700 3200 400 Balance -710 -390 -2400 -400 Weight 221 lb 1.978 oz 221 lb 2 oz 221 lb 9.033 oz 215 lb 8 oz Last Vital Signs Temp Pulse Resp BP Pulse Ox 98.4 F 60 18 99/43 92 L 08/17/16 10:00 08/17/16 12:18 08/17/16 12:18 08/17/16 12:18 08/17/16 12:29 Active Medications Acetaminophen (Tylenol -) 650 mg PO Q6H PRN PRN Reason: PAIN Last Admin: 08/15/16 21:35 Dose: 650 mg Acetylcysteine (Mucomyst 20 Oral / Inh Use Only*) 600 mg NEB QIDR [facility] Last Admin: 08/17/16 06:35 Dose: Not Given Albuterol Sulfate (Ventolin 0.083% Nebulizer Soln -) 1 amp NEB Q4H PRN PRN Reason: SHORT OF BREATH/WHEEZING Albuterol Sulfate (Ventolin Hfa Inhaler -) 2 puff IH Q4H PRN PRN Reason: SHORT OF BREATH/WHEEZING Amlodipine Besylate (Norvasc -) 10 mg PO DAILY [facility] Last Admin: 08/17/16 09:19 Dose: 10 mg Apixaban (Eliquis -) 2.5 mg PO BID [facility] Last Admin: 08/17/16 09:19 Dose: 2.5 mg Aspirin (Ecotrin -) 81 mg PO DAILY [facility] Last Admin: 08/17/16 09:18 Dose: 81 mg Atorvastatin Calcium (Lipitor -) 20 mg PO HS [facility] Last Admin: 08/16/16 22:15 Dose: 20 mg Bupropion HCl (Wellbutrin Xl -) 150 mg PO DAILY [facility] Last Admin: 08/17/16 09:20 Dose: 150 mg Chlorhexidine Gluconate (Hibiclens For Decolonization -) 1 applic TP HS [facility] Last Admin: 08/16/16 22:15 Dose: 1 applic Clindamycin HCl (Cleocin -) 300 mg PO Q6HPO [facility] Last Admin: 08/17/16 12:28 Dose: 300 mg Docusate Sodium (Colace -) 100 mg PO BID [facility] Last Admin: 08/17/16 09:18 Dose: 100 mg Duloxetine HCl (Cymbalta -) 60 mg PO DAILY [facility] Last Admin: 08/17/16 09:18 Dose: 60 mg Emollient Ointment (Aquaphor -) 1 applic TP BID [facility] Last Admin: 08/17/16 09:18 Dose: 1 applic Epoetin Keith (Procrit -) 10,000 unit SQ MoWeFr@1000 [facility] Last Admin: 08/16/16 17:52 Dose: Not Given Ferrous Sulfate (Feosol -) 325 mg PO BID [facility] Last Admin: 08/17/16 09:19 Dose: 325 mg Furosemide (Lasix Injection -) 80 mg IVPUSH BID@0600,1400 [facility] Last Admin: 08/17/16 06:32 Dose: 80 mg Guaifenesin (Robitussin Dm -) 10 ml PO Q6H PRN PRN Reason: COUGH Last Admin: 08/15/16 10:28 Dose: 10 ml Ertapenem 1 gm/ Sodium (Chloride) 50 mls @ 100 mls/hr IVPB DAILY [facility] PRN Reason: Protocol Last Admin: 08/17/16 09:19 Dose: 100 mls/hr Metoprolol Tartrate (Lopressor -) 25 mg PO BID [facility] Last Admin: 08/17/16 09:19 Dose: 25 mg Non-Formulary Medication (Fluticasone/Vilanterol [Breo Ellipta 100-25 Mcg Inh]) 1 each IH DAILY [facility] Nystatin (Nystop Powder -) 1 applic TP DAILY [facility] Last Admin: 08/17/16 09:36 Dose: 1 applic Pantoprazole Sodium (Protonix -) 40 mg PO DAILY [facility] Last Admin: 08/17/16 09:19 Dose: 40 mg Polyethylene Glycol (Miralax (For Daily Use) -) 17 gm PO DAILY [facility] Last Admin: 08/17/16 09:30 Dose: Not Given Prednisone (Deltasone -) 40 mg PO DAILY [facility] Last Admin: 08/17/16 09:18 Dose: 40 mg Senna (Senna -) 2 tab PO DAILY [facility] Last Admin: 08/17/16 09:19 Dose: 2 tab Tamsulosin HCl (Flomax -) 0.4 mg PO DAILY@0830 [facility] Last Admin: 08/17/16 09:17 Dose: 0.4 mg Gen: Awake and alert, mildly tachypneic on BiPAP Heart: RRR Lung: decreased breath sounds on left Abd: soft, nontender Ext: + edema, chronic stasis changes Laboratory Results - last 24 hr 08/16/16 08/17/16 08/17/16 17:15 05:45 05:45 WBC 10.5 H RBC 3.01 L Hgb 8.6 L Hct 26.4 L MCV 87.9 MCHC 32.5 RDW 17.0 H Plt Count 264 D MPV 7.1 L Sodium 143 Potassium 4.4 Chloride 98 Carbon Dioxide 36 H Anion Gap 9 BUN 62 H Creatinine 1.8 H Creat Clearance w eGFR 37.17 POC Glucometer [phone] Random Glucose 89 Calcium 8.2 L Phosphorus 5.0 H D Magnesium 2.7 H Total Bilirubin 0.4 AST 12 L ALT 12 Alkaline Phosphatase 60 Total Protein 5.2 L Albumin 2.6 L 08/17/16 07:12 WBC RBC Hgb Hct MCV MCHC RDW Plt Count MPV Sodium Potassium Chloride Carbon Dioxide Anion Gap BUN Creatinine Creat Clearance w eGFR POC Glucometer [phone] Random Glucose Calcium Phosphorus Magnesium Total Bilirubin AST ALT Alkaline Phosphatase Total Protein Albumin ASSESSMENT AND PLAN: Acute on Chronic Hypoxic and Hypercapneic Respiratory Failure Acute on Chronic Diastolic Heart Failure Pleural Effusion Acute on Chronic Renal Failure Atelectasis Atrial fibrillation CAD s/p stents COPD HTN Hyperlipidemia h/o PE/DVT h/o GI Bleed - Aggressive Chest PT - Mucolytics - NIPPV support as needed - O2 to keep SPo2 >90% - Lasix - monitor urine output, creatinine - monitor CXR - rate controlled - AC Dr Vasquez Critical care time spent in reviewing chart, evaluating patient and formulating plan 38 min
--- NOTE | 2016-08-17 14:31 | PN ---
Physical Exam: SUBJECTIVE: Patient seen and examined at bedside in ICU. He is on BiPap, no improvement. No overnight events. OBJECTIVE: Vital Signs Period Temp Pulse Resp BP Sys/[place] Pulse Ox Last 24 Hr 97.9 F-98.4 F 51-69 15-22 90-132/43-95 92-100 GENERAL: The patient is awake, alert, and fully oriented, in no acute distress, on VM. HEAD: Normal with no signs of trauma. EYES: PERRL, conjunctiva clear. ENT: Ears normal, nares patent, moist mucous membranes. NECK: Trachea midline, full range of motion, supple. LUNGS: Breath sounds equal, diminished B/L, no crackles, no accessory muscle use. HEART: Regular rate and rhythm, S1, S2 without murmur, rub or gallop. ABDOMEN: Soft, nontender, nondistended, normoactive bowel sounds, no guarding, no rebound, no masses. EXTREMITIES: 2+ pulses, warm, well-perfused, 1+ LE edema and mild erythema in LE B/L, warm to touch, venous stasis changes in LE B/L. NEUROLOGICAL:No facial asymmetry, normal speech, gait not observed. PSYCH: Normal mood, normal affect. SKIN: Warm, dry, normal turgor, lower extremities venous stasis changes B/L. Laboratory Results - last 24 hr 08/16/16 08/17/16 08/17/16 17:15 05:45 05:45 WBC 10.5 H RBC 3.01 L Hgb 8.6 L Hct 26.4 L MCV 87.9 MCHC 32.5 RDW 17.0 H Plt Count 264 D MPV 7.1 L Sodium 143 Potassium 4.4 Chloride 98 Carbon Dioxide 36 H Anion Gap 9 BUN 62 H Creatinine 1.8 H Creat Clearance w eGFR 37.17 POC Glucometer 150.58166 Random Glucose 89 Calcium 8.2 L Phosphorus 5.0 H D Magnesium 2.7 H Total Bilirubin 0.4 AST 12 L ALT 12 Alkaline Phosphatase 60 Total Protein 5.2 L Albumin 2.6 L 08/17/16 07:12 WBC RBC Hgb Hct MCV MCHC RDW Plt Count MPV Sodium Potassium Chloride Carbon Dioxide Anion Gap BUN Creatinine Creat Clearance w eGFR POC Glucometer 111.90404 Random Glucose Calcium Phosphorus Magnesium Total Bilirubin AST ALT Alkaline Phosphatase Total Protein Albumin Active Medications Generic Name Dose Route Start Last Admin Trade Name Freq PRN Reason Stop Dose Admin Acetaminophen 650 mg 08/14/16 17:14 08/15/16 21:35 Tylenol - PO 650 mg Q6H PRN Administration PAIN Acetylcysteine 600 mg 08/16/16 12:30 08/17/16 06:35 Mucomyst 20 Oral / Inh Use Only* NEB Not Given QIDR [facility] Albuterol Sulfate 1 amp 08/17/16 18:00 Ventolin 0.083% Nebulizer Soln - NEB QIDR [facility] Amlodipine Besylate 10 mg 08/15/16 10:00 08/17/16 09:19 Norvasc - PO 10 mg DAILY [facility] Administration Apixaban 2.5 mg 08/14/16 22:00 08/17/16 09:19 Eliquis - PO 2.5 mg BID [facility] Administration Aspirin 81 mg 08/15/16 10:00 08/17/16 09:18 Ecotrin - PO 81 mg DAILY [facility] Administration Atorvastatin Calcium 20 mg 08/14/16 22:00 08/16/16 22:15 Lipitor - PO 20 mg HS [facility] Administration Bupropion HCl 150 mg 08/15/16 10:00 08/17/16 09:20 Wellbutrin Xl - PO 150 mg DAILY [facility] Administration Chlorhexidine Gluconate 1 applic 08/14/16 22:00 08/16/16 22:15 Hibiclens For Decolonization - TP 1 applic HS [facility] Administration Clindamycin HCl 300 mg 08/15/16 00:00 08/17/16 12:28 Cleocin - PO 300 mg Q6HPO [facility] Administration Docusate Sodium 100 mg 08/14/16 22:00 08/17/16 09:18 Colace - PO 100 mg BID [facility] Administration Duloxetine HCl 60 mg 08/15/16 10:00 08/17/16 09:18 Cymbalta - PO 60 mg DAILY [facility] Administration Emollient Ointment 1 applic 08/14/16 22:00 08/17/16 09:18 Aquaphor - TP 1 applic BID [facility] Administration Epoetin Keith 10,000 unit 08/16/16 10:00 08/16/16 17:52 Procrit - SQ Not Given MoWeFr@1000 [facility] Ferrous Sulfate 325 mg 08/14/16 22:00 08/17/16 09:19 Feosol - PO 325 mg BID [facility] Administration Furosemide 80 mg 08/16/16 14:00 08/17/16 13:56 Lasix Injection - IVPUSH 80 mg BID@0600,1400 [facility] Administration Guaifenesin 10 ml 08/14/16 17:14 08/15/16 10:28 Robitussin Dm - PO 10 ml Q6H PRN Administration COUGH Ertapenem 1 gm/ Sodium 50 mls @ 100 mls/hr 08/15/16 18:15 08/17/16 09:19 Chloride IVPB 100 mls/hr DAILY [facility] Administration Protocol Metoprolol Tartrate 25 mg 08/14/16 22:00 08/17/16 09:19 Lopressor - PO 25 mg BID [facility] Administration Nystatin 1 applic 08/15/16 10:00 08/17/16 09:36 Nystop Powder - TP 1 applic DAILY [facility] Administration Pantoprazole Sodium 40 mg 08/15/16 10:00 08/17/16 09:19 Protonix - PO 40 mg DAILY [facility] Administration Polyethylene Glycol 17 gm 08/14/16 15:15 08/17/16 09:30 Miralax (For Daily Use) - PO Not Given DAILY [facility] Prednisone 40 mg 08/15/16 10:00 08/17/16 09:18 Deltasone - PO 40 mg DAILY [facility] Administration Senna 2 tab 08/15/16 10:00 08/17/16 09:19 Senna - PO 2 tab DAILY [facility] Administration Tamsulosin HCl 0.4 mg 08/15/16 08:30 08/17/16 09:17 Flomax - PO 0.4 mg DAILY@0830 [facility] Administration CXR today: left pleural effusion CT chest: 1. Atelectasis of the left lung with moderate pleural effusion. 2. Moderate right pleural effusion with lower lobe atelectasis. Please see above discussion. ASSESSMENT/PLAN: 75 year old man with a history of HTN, COPD on home O2, chronic systolic/ diastolic CHF, CKD, JOY, CAD s/p 2 stents, GI bleed, GERD, , TIA, anemia, multiple admissions for respiratory failure, sepsis, KARLOS, has been in [place], recently tx for presumed PNA, admitted with sob and recurrent pleural effusions and cough. Pulmonary; SOB-multifactorial, PNA, COPD, pleural effusions, -CXR not changed, confirmed with CT chest and US at bedside, added repositioning the pt, chest PT, mucomyst NEB, albuterol, duonebs stopped -no recommendation for thoracenthesis for now -s/p thoracentesis, fluid appeared transudative -continue prednisone Card: -will continue diuresis: Lasix -monitor strict I/Os and daily weights -cont Lopressor 25mg bid -not on PIPER-I currently due to fluctuating renal function in the past -cont ASA -cont lipitor -cont lopressor ID: -continue antibiotics for cellulitis Ertapenem and Clindamycin Nephro: -monitor BUN/Creat, electrolytes, keep k=4, Mg=2 -last echo 05/2016 showed normal LV systolic function, no signif. valvular abnl -receiving steroids and Abx DVT -on eliquis Disposition: pending transfer to med surg Visit type - Emergency Visit Emergency Visit: Yes ED Registration Date: 08/11/16 Care time: The patient presented to the Emergency Department on the above date and was hospitalized for further evaluation of their emergent condition. - New Patient This patient is new to me today: No - Critical Care Critical Care patient: Yes Total Critical Care Time (in minutes): 45 Critical Care Statement: The care of this patient involved high complexity decision making to prevent further life threatening deterioration of the patient 's condition and/or to evalute & treat vital organ system(s) failure or risk of failure.
--- NOTE | 2016-08-17 15:36 | PN ---
Progress Note (short form) - Note Progress Note: Subjective: The patient was seen and examined at the bedside Current Medications Generic Name Dose Route Start Last Admin Trade Name Freq PRN Reason Stop Dose Admin Acetaminophen 650 mg 08/14/16 17:14 08/15/16 21:35 Tylenol - PO 650 mg Q6H PRN Administration PAIN Acetylcysteine 600 mg 08/16/16 12:30 08/17/16 12:10 Mucomyst 20 Oral / Inh Use Only* NEB 600 mg QIDR [facility] Administration Albuterol Sulfate 1 amp 08/17/16 18:00 08/17/16 12:10 Ventolin 0.083% Nebulizer Soln - NEB 1 amp QIDR [facility] Administration Amlodipine Besylate 10 mg 08/15/16 10:00 08/17/16 09:19 Norvasc - PO 10 mg DAILY [facility] Administration Apixaban 2.5 mg 08/14/16 22:00 08/17/16 09:19 Eliquis - PO 2.5 mg BID [facility] Administration Aspirin 81 mg 08/15/16 10:00 08/17/16 09:18 Ecotrin - PO 81 mg DAILY [facility] Administration Atorvastatin Calcium 20 mg 08/14/16 22:00 08/16/16 22:15 Lipitor - PO 20 mg HS [facility] Administration Bupropion HCl 150 mg 08/15/16 10:00 08/17/16 09:20 Wellbutrin Xl - PO 150 mg DAILY [facility] Administration Chlorhexidine Gluconate 1 applic 08/14/16 22:00 08/16/16 22:15 Hibiclens For Decolonization - TP 1 applic HS [facility] Administration Clindamycin HCl 300 mg 08/15/16 00:00 08/17/16 12:28 Cleocin - PO 300 mg Q6HPO [facility] Administration Docusate Sodium 100 mg 08/14/16 22:00 08/17/16 09:18 Colace - PO 100 mg BID [facility] Administration Duloxetine HCl 60 mg 08/15/16 10:00 08/17/16 09:18 Cymbalta - PO 60 mg DAILY [facility] Administration Emollient Ointment 1 applic 08/14/16 22:00 08/17/16 09:18 Aquaphor - TP 1 applic BID [facility] Administration Epoetin Keith 10,000 unit 08/16/16 10:00 08/16/16 17:52 Procrit - SQ Not Given MoWeFr@1000 [facility] Ferrous Sulfate 325 mg 08/14/16 22:00 08/17/16 09:19 Feosol - PO 325 mg BID [facility] Administration Furosemide 80 mg 08/16/16 14:00 08/17/16 13:56 Lasix Injection - IVPUSH 80 mg BID@0600,1400 [facility] Administration Guaifenesin 10 ml 08/14/16 17:14 08/15/16 10:28 Robitussin Dm - PO 10 ml Q6H PRN Administration COUGH Ertapenem 1 gm/ Sodium 50 mls @ 100 mls/hr 08/15/16 18:15 08/17/16 09:19 Chloride IVPB 100 mls/hr DAILY [facility] Administration Protocol Metoprolol Tartrate 25 mg 08/14/16 22:00 08/17/16 09:19 Lopressor - PO 25 mg BID [facility] Administration Nystatin 1 applic 08/15/16 10:00 08/17/16 09:36 Nystop Powder - TP 1 applic DAILY [facility] Administration Pantoprazole Sodium 40 mg 08/15/16 10:00 08/17/16 09:19 Protonix - PO 40 mg DAILY [facility] Administration Polyethylene Glycol 17 gm 08/14/16 15:15 08/17/16 09:30 Miralax (For Daily Use) - PO Not Given DAILY [facility] Prednisone 40 mg 08/15/16 10:00 08/17/16 09:18 Deltasone - PO 40 mg DAILY [facility] Administration Senna 2 tab 08/15/16 10:00 08/17/16 09:19 Senna - PO 2 tab DAILY [facility] Administration Tamsulosin HCl 0.4 mg 08/15/16 08:30 08/17/16 09:17 Flomax - PO 0.4 mg DAILY@0830 [facility] Administration Objective: Vital Signs Period Temp Pulse Resp BP Sys/[place] Pulse Ox Last 24 Hr 97.9 F-98.4 F 51-60 15-22 99-132/43-95 92-100 Physical Exam: General: NAD, A&Ox3 Lungs: Decreased breath sounds on the left Heart: RRR, S1S2 Abd: Soft, non-tender, non-distended. Normoactive bowel sounds Ext: B/l lower extremity edema. Chronic venous stasis changes CBCD WBC 10.5 K/mm3 (4.0-10.0) H 08/17/16 05:45 RBC 3.01 M/mm3 (4.00-5.60) L 08/17/16 05:45 Hgb 8.6 GM/dL (11.7-16.9) L 08/17/16 05:45 Hct 26.4 % (35.4-49) L 08/17/16 05:45 MCV 87.9 fl (80-96) 08/17/16 05:45 MCHC 32.5 g/dl (32.0-35.9) 08/17/16 05:45 RDW 17.0 % (11.9-15.9) H 08/17/16 05:45 Plt Count 264 K/MM3 (134-434) D 08/17/16 05:45 MPV 7.1 fl (7.5-11.1) L 08/17/16 05:45 CMP Sodium 143 mmol/L (136-145) 08/17/16 05:45 Potassium 4.4 mmol/L (3.5-5.1) 08/17/16 05:45 Chloride 98 mmol/L (98-107) 08/17/16 05:45 Carbon Dioxide 36 mmol/L (21-32) H 08/17/16 05:45 Anion Gap 9 (8-16) 08/17/16 05:45 BUN 62 mg/dL (7-18) H 08/17/16 05:45 Creatinine 1.8 mg/dL (0.7-1.3) H 08/17/16 05:45 Creat Clearance w eGFR 37.17 (>60) 08/17/16 05:45 Random Glucose 89 mg/dL (74-106) 08/17/16 05:45 Calcium 8.2 mg/dL (8.5-10.1) L 08/17/16 05:45 Total Bilirubin 0.4 mg/dL (0.2-1.0) 08/17/16 05:45 AST 12 U/L (15-37) L 08/17/16 05:45 ALT 12 U/L (12-78) 08/17/16 05:45 Alkaline Phosphatase 60 U/L (45-117) 08/17/16 05:45 Total Protein 5.2 g/dl (6.4-8.2) L 08/17/16 05:45 Albumin 2.6 g/dl (3.4-5.0) L 08/17/16 05:45 CARDIAC ENZYMES Creatine Kinase 26 IU/L (39-308) L 08/11/16 23:00 Troponin I < 0.02 ng/ml (0.00-0.05) 08/11/16 23:00 Microbiology 08/12/16 06:00 Nasopharyngeal Swab Respiratory Virus (PCR) - Final 08/11/16 18:20 Blood - Peripheral Venous Blood Culture - Final NO GROWTH AFTER 5 DAYS INCUBATION 08/11/16 18:20 Blood - Peripheral Venous Blood Culture - Final NO GROWTH AFTER 5 DAYS INCUBATION 08/12/16 06:00 Sputum - Expectorated Gram Stain - Final 08/12/16 06:00 Sputum - Expectorated Sputum Culture - Final NORMAL RESPIRATORY FAWN 08/12/16 00:00 Pleural Fluid Gram Stain - Final 08/12/16 00:00 Pleural Fluid Body Fluid Culture - Final NO GROWTH OF AEROBIC ORGANISMS AFTER 48 HOURS INCUBATION 08/12/16 00:00 Pleural Fluid Anaerobic Culture - Final NO ANAEROBES WERE ISOLATED 08/11/16 16:55 Urine - Urine - Catheterized Urine Culture - Final NO GROWTH OBTAINED 08/12/16 12:00 Urine - Urine Clifford Legionella Antigen - Final 08/12/16 12:00 Urine - Urine Clifford Streptococcus pneumoniae Antigen (M - Final Assessment: This is a 75 year old male with PMHx of HTN, hyperlipidemia, CAD s/ p stenting x2 (2014), diastolic heart failure, a.fib, COPD, respiratory failure requiring intubation (02/2016-04/2016), GI bleed, h/o DVT and PE who presented from the SNF for shortness of breath. Plan: 1) Pulmonary: Acute on chronic hypoxic and hypercapnic respiratory failure, pleural effusions, Acute COPD exacerbation - Chest CT atelectasis of the left lung with moderate pleural effusion. Moderate right pleural effusion with lower lobe atelectasis - Chest X-ray today with slightly better evaluation of the left lung apex. The rest of the left hemithorax/lung remains opacified - NIPPV at night and PRN - Continue Prednisone 40mg po daily - Mucomyst meds qid - Albuterol nebs qid - Chest PT bid - Encourage coughing and deep breathing - Incentive spirometry - Appreciate pulmonary consult B/l pleural effusions 2) ID: pneumonia - Continue Clindamycin (08/12- ) - Continue Ertapenem (08/15- ), has been on carbapenem since 08/11 - WBC trended up slightly today - Remains afebrile - Appreciate ID consult 3) Cardiology: Acute on chronic combined systolic and diastolic heart failure - Echo 05/2016 showed normal LV systolic function, no sig valvular abnl - Continue Lasix 80mg IVP bid - Monitor Chest x-rays - Appreciate cardiology consult CAD s/p PCI 03/2015, 04/2015 - Continue ASA - Continue Lipitor - Continue Lopressor DVT LLE - Continue Eliquis (renally dosed) 4) : KARLOS on CKD - Cr 1.9 ~ baseline - Continue to monitor 5) F/E/N: - Monitor electrolytes - Diabetic/low sodium diet 6) Prophylaxis: - On Eliquis 7) Dispo: - Requires continued ICU care CODE STATUS: FULL CODE Visit type - Emergency Visit Emergency Visit: Yes ED Registration Date: 08/11/16 Care time: The patient presented to the Emergency Department on the above date and was hospitalized for further evaluation of their emergent condition. - New Patient This patient is new to me today: Yes Date on this admission: 08/17/16 - Critical Care Critical Care patient: No
--- NOTE | 2016-08-17 17:44 | PN ---
Progress Note, Physician History of Present Illness: Pt alert and oriented. Using Bipap continuously-becames hypoxic and dyspneic as soon as Bipap mask removed - Current Medication List Current Medications: Active Medications Acetaminophen (Tylenol -) 650 mg PO Q6H PRN PRN Reason: PAIN Last Admin: 08/15/16 21:35 Dose: 650 mg Acetylcysteine (Mucomyst 20 Oral / Inh Use Only*) 600 mg NEB QIDR [facility] [place] Last Admin: 08/17/16 12:10 Dose: 600 mg Albuterol Sulfate (Ventolin 0.083% Nebulizer Soln -) 1 amp NEB QIDR [facility] Last Admin: 08/17/16 12:10 Dose: 1 amp Amlodipine Besylate (Norvasc -) 10 mg PO DAILY [facility] Last Admin: 08/17/16 09:19 Dose: 10 mg Apixaban (Eliquis -) 2.5 mg PO BID [facility] [place] Last Admin: 08/17/16 09:19 Dose: 2.5 mg Aspirin (Ecotrin -) 81 mg PO DAILY [facility] [place] Last Admin: 08/17/16 09:18 Dose: 81 mg Atorvastatin Calcium (Lipitor -) 20 mg PO HS [facility] [place] Last Admin: 08/16/16 22:15 Dose: 20 mg Bupropion HCl (Wellbutrin Xl -) 150 mg PO DAILY [facility] [place] Last Admin: 08/17/16 09:20 Dose: 150 mg Chlorhexidine Gluconate (Hibiclens For Decolonization -) 1 applic TP HS [facility] Last Admin: 08/16/16 22:15 Dose: 1 applic Clindamycin HCl (Cleocin -) 300 mg PO Q6HPO [facility] [place] Last Admin: 08/17/16 12:28 Dose: 300 mg Docusate Sodium (Colace -) 100 mg PO BID [facility] [place] Last Admin: 08/17/16 09:18 Dose: 100 mg Duloxetine HCl (Cymbalta -) 60 mg PO DAILY [facility] [place] Last Admin: 08/17/16 09:18 Dose: 60 mg Emollient Ointment (Aquaphor -) 1 applic TP BID [facility] Last Admin: 08/17/16 09:18 Dose: 1 applic Epoetin Keith (Procrit -) 10,000 unit SQ MoWeFr@1000 [facility] Last Admin: 08/16/16 17:52 Dose: Not Given Ferrous Sulfate (Feosol -) 325 mg PO BID [facility] [place] Last Admin: 08/17/16 09:19 Dose: 325 mg Furosemide (Lasix Injection -) 80 mg IVPUSH BID@0600,1400 [facility] Last Admin: 08/17/16 13:56 Dose: 80 mg Guaifenesin (Robitussin Dm -) 10 ml PO Q6H PRN PRN Reason: COUGH Last Admin: 08/15/16 10:28 Dose: 10 ml Ertapenem 1 gm/ Sodium (Chloride) 50 mls @ 100 mls/hr IVPB DAILY [facility] [place] PRN Reason: Protocol Last Admin: 08/17/16 09:19 Dose: 100 mls/hr Metoprolol Tartrate (Lopressor -) 25 mg PO BID [facility] [place] Last Admin: 08/17/16 09:19 Dose: 25 mg Nystatin (Nystop Powder -) 1 applic TP DAILY [facility] [place] Last Admin: 08/17/16 09:36 Dose: 1 applic Pantoprazole Sodium (Protonix -) 40 mg PO DAILY [facility] [place] Last Admin: 08/17/16 09:19 Dose: 40 mg Polyethylene Glycol (Miralax (For Daily Use) -) 17 gm PO DAILY [facility] [place] Last Admin: 08/17/16 09:30 Dose: Not Given Prednisone (Deltasone -) 40 mg PO DAILY [facility] [place] Last Admin: 08/17/16 09:18 Dose: 40 mg Senna (Senna -) 2 tab PO DAILY [facility] [place] Last Admin: 08/17/16 09:19 Dose: 2 tab Tamsulosin HCl (Flomax -) 0.4 mg PO DAILY@0830 [facility] [place] Last Admin: 08/17/16 09:17 Dose: 0.4 mg - Objective Vital Signs: Vital Signs Temperature 98 F 08/17/16 16:00 Pulse Rate 56 L 08/17/16 16:00 Respiratory Rate 18 08/17/16 16:00 Blood Pressure 104/60 08/17/16 16:00 O2 Sat by Pulse Oximetry (%) 100 08/17/16 17:38 Constitutional: Yes: Mild Distress Eyes: Yes: Sclera Icterus HENT: Yes: Atraumatic, Normocephalic Neck: Yes: Supple Cardiovascular: Yes: Regular Rate and Rhythm. No: JVD Respiratory: Yes: Diminished (bilateral) Gastrointestinal: Yes: Soft Extremities: No: Calf Tenderness Edema: LLE: 2+, RLE: 2+ Neurological: Yes: Alert, Oriented Labs: CBC, BMP 08/17/16 05:45 08/17/16 05:45 INR, PTT INR 1.15 (0.82-1.09) H 08/16/16 08:27 - ....Imaging Chest X-ray: Report Reviewed, Image Reviewed (opacification left chest) Cat Scan: Report Reviewed, Image Reviewed (left lung atelectasis and effusion) Problem List - Problems (1) Acute and chronic respiratory failure with hypoxia Code(s): J96.21 - ACUTE AND CHRONIC RESPIRATORY FAILURE WITH HYPOXIA (2) Atrial fibrillation Code(s): I48.91 - UNSPECIFIED ATRIAL FIBRILLATION (3) Pleural effusion Code(s): J90 - PLEURAL EFFUSION, NOT ELSEWHERE CLASSIFIED (4) Pneumonia Code(s): J18.9 - PNEUMONIA, UNSPECIFIED ORGANISM Qualifiers: Pneumonia type: due to unspecified organism Laterality: left Lung location: lower lobe of lung Qualified Code(s): J18.1 - Lobar pneumonia, unspecified organism (5) Acute on chronic diastolic (congestive) heart failure Code(s): I50.33 - ACUTE ON CHRONIC DIASTOLIC (CONGESTIVE) HEART FAILURE Assessment/Plan 75 year old male with acute on chronic hypercapnic, hypoxic respiratory failure , pneumonia (hx of MRSA sepsis) and acute exacerbation COPD and obesity. Hx DVT and pt on anticoagulation. Left lung atelectasis with increased dyspnea. Pt receiving aggressive pulmonary toilet. I encouraged pt. re: deep coughing and cooperating with chest PT. Suggest: Antibiotics per I.D. Diuretic Prednisone Inhaled bronchodilators O2 to maintain SaO2 greater than 90. NIPPV at night and PRN Repeat CXR ordered-if atelectasis doesn't improve pt will need bronchoscopy
--- NOTE | 2016-08-17 19:35 | PN ---
Progress Note, Physician History of Present Illness: says cough is better on bipap little uncooperative - Current Medication List Current Medications: Active Medications Acetaminophen (Tylenol -) 650 mg PO Q6H PRN PRN Reason: PAIN Last Admin: 08/15/16 21:35 Dose: 650 mg Acetylcysteine (Mucomyst 20 Oral / Inh Use Only*) 600 mg NEB QIDR [facility] Last Admin: 08/17/16 17:40 Dose: 600 mg Albuterol Sulfate (Ventolin 0.083% Nebulizer Soln -) 1 amp NEB QIDR [facility] Last Admin: 08/17/16 17:40 Dose: 1 amp Amlodipine Besylate (Norvasc -) 10 mg PO DAILY [facility] Last Admin: 08/17/16 09:19 Dose: 10 mg Apixaban (Eliquis -) 2.5 mg PO BID [facility] Last Admin: 08/17/16 09:19 Dose: 2.5 mg Aspirin (Ecotrin -) 81 mg PO DAILY [facility] Last Admin: 08/17/16 09:18 Dose: 81 mg Atorvastatin Calcium (Lipitor -) 20 mg PO HS [facility] Last Admin: 08/16/16 22:15 Dose: 20 mg Bupropion HCl (Wellbutrin Xl -) 150 mg PO DAILY [facility] Last Admin: 08/17/16 09:20 Dose: 150 mg Chlorhexidine Gluconate (Hibiclens For Decolonization -) 1 applic TP HS [facility] Last Admin: 08/16/16 22:15 Dose: 1 applic Clindamycin HCl (Cleocin -) 300 mg PO Q6HPO [facility] Last Admin: 08/17/16 17:49 Dose: 300 mg Docusate Sodium (Colace -) 100 mg PO BID [facility] Last Admin: 08/17/16 09:18 Dose: 100 mg Duloxetine HCl (Cymbalta -) 60 mg PO DAILY [facility] Last Admin: 08/17/16 09:18 Dose: 60 mg Emollient Ointment (Aquaphor -) 1 applic TP BID [facility] Last Admin: 08/17/16 09:18 Dose: 1 applic Epoetin Keith (Procrit -) 10,000 unit SQ MoWeFr@1000 [facility] Last Admin: 08/16/16 17:52 Dose: Not Given Ferrous Sulfate (Feosol -) 325 mg PO BID [facility] Last Admin: 08/17/16 09:19 Dose: 325 mg Furosemide (Lasix Injection -) 80 mg IVPUSH BID@0600,1400 [facility] Last Admin: 08/17/16 13:56 Dose: 80 mg Guaifenesin (Robitussin Dm -) 10 ml PO Q6H PRN PRN Reason: COUGH Last Admin: 08/15/16 10:28 Dose: 10 ml Ertapenem 1 gm/ Sodium (Chloride) 50 mls @ 100 mls/hr IVPB DAILY [facility] PRN Reason: Protocol Last Admin: 08/17/16 09:19 Dose: 100 mls/hr Metoprolol Tartrate (Lopressor -) 25 mg PO BID [facility] Last Admin: 08/17/16 09:19 Dose: 25 mg Nystatin (Nystop Powder -) 1 applic TP DAILY [facility] Last Admin: 08/17/16 09:36 Dose: 1 applic Pantoprazole Sodium (Protonix -) 40 mg PO DAILY [facility] Last Admin: 08/17/16 09:19 Dose: 40 mg Polyethylene Glycol (Miralax (For Daily Use) -) 17 gm PO DAILY [facility] Last Admin: 08/17/16 09:30 Dose: Not Given Prednisone (Deltasone -) 40 mg PO DAILY [facility] Last Admin: 08/17/16 09:18 Dose: 40 mg Senna (Senna -) 2 tab PO DAILY [facility] Last Admin: 08/17/16 09:19 Dose: 2 tab Tamsulosin HCl (Flomax -) 0.4 mg PO DAILY@0830 [facility] Last Admin: 08/17/16 09:17 Dose: 0.4 mg - Objective Vital Signs: Vital Signs Temperature 98 F 08/17/16 16:00 Pulse Rate 56 L 08/17/16 16:00 Respiratory Rate 18 08/17/16 16:00 Blood Pressure 104/60 08/17/16 16:00 O2 Sat by Pulse Oximetry (%) 100 08/17/16 17:38 Constitutional: Yes: Calm Neck: Yes: Supple Cardiovascular: Yes: S1, S2 Respiratory: Yes: On BiPap, Poor Air Entry Gastrointestinal: Yes: Normal Bowel Sounds, Soft Musculoskeletal: Yes: Other Extremities: Yes: Other Integumentary: Yes: Erythema (decreasing) Neurological: Yes: Alert, Oriented Psychiatric: Yes: Alert, Oriented Labs: CBC, BMP 08/17/16 05:45 08/17/16 05:45 INR, PTT INR 1.15 (0.82-1.09) H 08/16/16 08:27 Assessment/Plan Problem List - Problems (1) Acute and chronic respiratory failure with hypoxia Code(s): J96.21 - ACUTE AND CHRONIC RESPIRATORY FAILURE WITH HYPOXIA (2) Pneumonia Code(s): J18.9 - PNEUMONIA, UNSPECIFIED ORGANISM Qualifiers: Pneumonia type: due to unspecified organism Laterality: left Lung location: lower lobe of lung Qualified Code(s): J18.1 - Lobar pneumonia, unspecified organism (3) Pleural effusion Code(s): J90 - PLEURAL EFFUSION, NOT ELSEWHERE CLASSIFIED (4) Acute on chronic diastolic (congestive) heart failure Code(s): I50.33 - ACUTE ON CHRONIC DIASTOLIC (CONGESTIVE) HEART FAILURE (5) COPD (chronic obstructive pulmonary disease) Code(s): J44.9 - CHRONIC OBSTRUCTIVE PULMONARY DISEASE, UNSPECIFIED (6) Renal failure (ARF), acute on chronic Code(s): N17.9 - ACUTE KIDNEY FAILURE, UNSPECIFIED N18.9 - CHRONIC KIDNEY DISEASE, UNSPECIFIED (7) Diabetes Code(s): E11.9 - TYPE 2 DIABETES MELLITUS WITHOUT COMPLICATIONS Qualifiers: Diabetes mellitus type: type 2 Diabetes mellitus complication status: with kidney complications Diabetes mellitus complication detail: with chronic kidney disease (8) Atrial fibrillation Code(s): I48.91 - UNSPECIFIED ATRIAL FIBRILLATION 9 bilateral cellulitis of the legs plan continue abx will deescalate ertapenam by sun resp support all cx reports noted elevation of the leg continue as per pul icu cc time 40 min
[2016-08-17] MEDS: CHLORHEXIDINE GLUCONATE 4% CLEANSER FOR DECOLONIZATION TP SCH (22:09)
[2016-08-17] MEDS: ATORVASTATIN CA 20 MG TABLET (FP) PO SCH (22:09)
[2016-08-18] MEDS: ACETYLCYSTEINE 20% 200MG/ML 4 ML VIAL *FOR ORAL / INH USE ONLY NEB SCH ×3 (00:03→16:50)
[2016-08-18] MEDS: ALBUTEROL SO4 0.083% IH SOL 2.5 MG/3 ML VIAL.NEB. NEB SCH ×3 (00:03→16:50)
[2016-08-18] MEDS: CLINDAMYCIN HCL 150 MG CAPSULE (FP) PO SCH ×4 (00:38→19:13)
[2016-08-18] MEDS: FUROSEMIDE 40 MG/4 ML INJECTABLE VIAL IVPUSH SCH ×2 (05:54→15:02)
[2016-08-18 06:15] LABS: BASOPHIL 0.1 % (0-2.0); EOSINOPHIL 0.4 % (0-4.5); MEAN CELL VOLUME 87.6 fl (80-96); MEAN PLT VOLUME 7.3 fl (7.5-11.1); PLATELET COUNT 260 K/MM3 (134-434); RDW 16.9 % (11.9-15.9); WHITE BLOOD COUNT 12.1 K/mm3 (4.0-10.0)
[2016-08-18 06:47] LABS: CALCIUM 8.4 mg/dL (8.5-10.1)
[2016-08-18 06:53] LABS: ALBUMIN 2.6 g/dl (3.4-5.0); BILIRUBIN,TOTAL 0.7 mg/dL (0.2-1.0); COCKROFT - GAULT 48.2; CREATININE 1.9 mg/dL (0.7-1.3); MAGNESIUM 2.8 mg/dL (1.8-2.4); TOT PROT 5.1 g/dl (6.4-8.2)
[2016-08-18] MEDS: MINERAL OIL/PET HY-PHL TOPICAL OINTMENT 454 GM JAR TP SCH ×2 (09:08→21:15)
[2016-08-18] MEDS: DOCUSATE SODIUM 100 MG CAPSULE (FP) PO SCH ×2 (09:08→21:14)
[2016-08-18] MEDS: TAMSULOSIN HCL 0.4 MG CAP.ER.24H (FP) PO SCH (09:08)
[2016-08-18] MEDS: DULoxetine HCL 30 MG CAPSULE.DR (FP) PO SCH (09:09)
[2016-08-18] MEDS: amLODIPine BESYLATE 10 MG TABLET (FP) PO SCH (09:10)
[2016-08-18] MEDS: predniSONE 20 MG TABLET (UD) PO SCH (09:10)
[2016-08-18] MEDS: ASPIRIN COATED 81 MG TABLET.EC PO SCH (09:10)
[2016-08-18] MEDS: APIXABAN 2.5 MG TABLET PO SCH ×2 (09:10→21:14)
[2016-08-18] MEDS: METOPROLOL TARTRATE 25 MG TABLET (FP) PO SCH ×2 (09:11→21:14)
[2016-08-18] MEDS: FERROUS SO4 325 MG TABLET (FP) PO SCH ×2 (09:11→21:14)
[2016-08-18] MEDS: NYSTATIN POWDER 100,000 UNITS/GM - 15 GM TOPICAL POWDER TP SCH (09:11)
[2016-08-18] MEDS: SENNOSIDES 8.6MG TABLET (FP) PO SCH (09:12)
--- NOTE | 2016-08-18 09:55 | PN ---
Progress Note, Physician Chief Complaint: On BiPAp Alert TELE: NSR. History of Present Illness: no acute distress - Current Medication List Current Medications: Active Medications Acetaminophen (Tylenol -) 650 mg PO Q6H PRN PRN Reason: PAIN Last Admin: 08/15/16 21:35 Dose: 650 mg Acetylcysteine (Mucomyst 20 Oral / Inh Use Only*) 600 mg NEB QIDR [facility] Last Admin: 08/18/16 00:03 Dose: 600 mg Albuterol Sulfate (Ventolin 0.083% Nebulizer Soln -) 1 amp NEB QIDR [facility] Last Admin: 08/18/16 00:03 Dose: 1 amp Amlodipine Besylate (Norvasc -) 10 mg PO DAILY [facility] Last Admin: 08/18/16 09:10 Dose: 10 mg Apixaban (Eliquis -) 2.5 mg PO BID [facility] Last Admin: 08/18/16 09:10 Dose: 2.5 mg Aspirin (Ecotrin -) 81 mg PO DAILY [facility] Last Admin: 08/18/16 09:10 Dose: 81 mg Atorvastatin Calcium (Lipitor -) 20 mg PO HS [facility] Last Admin: 08/17/16 22:09 Dose: 20 mg Bupropion HCl (Wellbutrin Xl -) 150 mg PO DAILY [facility] Last Admin: 08/17/16 09:20 Dose: 150 mg Chlorhexidine Gluconate (Hibiclens For Decolonization -) 1 applic TP HS [facility] Last Admin: 08/17/16 22:09 Dose: 1 applic Clindamycin HCl (Cleocin -) 300 mg PO Q6HPO [facility] Last Admin: 08/18/16 05:54 Dose: 300 mg Docusate Sodium (Colace -) 100 mg PO BID [facility] Last Admin: 08/18/16 09:08 Dose: 100 mg Duloxetine HCl (Cymbalta -) 60 mg PO DAILY [facility] Last Admin: 08/18/16 09:09 Dose: 60 mg Emollient Ointment (Aquaphor -) 1 applic TP BID [facility] Last Admin: 08/18/16 09:08 Dose: 1 applic Epoetin Keith (Procrit -) 10,000 unit SQ MoWeFr@1000 [facility] Last Admin: 08/16/16 17:52 Dose: Not Given Ferrous Sulfate (Feosol -) 325 mg PO BID [facility] Last Admin: 08/18/16 09:11 Dose: 325 mg Furosemide (Lasix Injection -) 80 mg IVPUSH BID@0600,1400 [facility] Last Admin: 08/18/16 05:54 Dose: 80 mg Guaifenesin (Robitussin Dm -) 10 ml PO Q6H PRN PRN Reason: COUGH Last Admin: 08/15/16 10:28 Dose: 10 ml Ertapenem 1 gm/ Sodium (Chloride) 50 mls @ 100 mls/hr IVPB DAILY [facility] PRN Reason: Protocol Last Admin: 08/17/16 09:19 Dose: 100 mls/hr Metoprolol Tartrate (Lopressor -) 25 mg PO BID [facility] Last Admin: 08/18/16 09:11 Dose: 25 mg Nystatin (Nystop Powder -) 1 applic TP DAILY [facility] Last Admin: 08/18/16 09:11 Dose: 1 applic Pantoprazole Sodium (Protonix -) 40 mg PO DAILY [facility] Last Admin: 08/17/16 09:19 Dose: 40 mg Polyethylene Glycol (Miralax (For Daily Use) -) 17 gm PO DAILY [facility] Last Admin: 08/17/16 09:30 Dose: Not Given Prednisone (Deltasone -) 40 mg PO DAILY [facility] Last Admin: 08/18/16 09:10 Dose: 40 mg Senna (Senna -) 2 tab PO DAILY [facility] Last Admin: 08/18/16 09:12 Dose: 2 tab Tamsulosin HCl (Flomax -) 0.4 mg PO DAILY@0830 [facility] Last Admin: 08/18/16 09:08 Dose: 0.4 mg - Objective Vital Signs: Vital Signs Temperature 97.8 F 08/18/16 06:00 Pulse Rate 80 08/18/16 08:00 Respiratory Rate 22 08/18/16 08:00 Blood Pressure 106/60 08/18/16 08:00 O2 Sat by Pulse Oximetry (%) 97 08/18/16 07:57 Constitutional: Yes: No Distress Cardiovascular: Yes: Regular Rate and Rhythm Respiratory: Yes: Other (decreased breath sounds left) Gastrointestinal: Yes: Soft, Abdomen, Obese Edema: Yes Edema: LLE: 1+, RLE: 1+ Neurological: Yes: Alert Labs: CBC, BMP 08/18/16 05:15 08/18/16 05:15 INR, PTT INR 1.15 (0.82-1.09) H 08/16/16 08:27 - ....Imaging EKG: Image Reviewed Assessment/Plan Assessment/Plan 75 year old man with a history of HTN, COPD on home O2, Chronic combined systolic/diastolic CHF, CKD, JOY, CAD moderate LV systolic dysfunction, cardiac cath 03/2015 showed 2VD with RCA and LAD disease s/p PCI with ABDON of RCA 2014 and staged PCI of LAD in 04/2015 with significant improvement in symptoms for some time, followed by multiple admissions for respiratory failure, sepsis, KARLOS, has been in [place], recently tx for presumed PNA, admitted with sob and recurrent pleural effusions. SOB-multifactorial, PNA, AE COPD, pleural effusions, acute on chronic combined systolic/diastolic CHF -Contine Bipap -s/p thoracentesis with improvement in symptoms, as per report pleural fluid appeared transudative. -Now with increased consolidation, CT showing atelectasis. -Continue IV Lasix -last echo 05/2016 showed normal LV systolic function, no sig valvular abnl -receiving steroids and Abx CAD-PCI with ABDON of RCA 03/2015 and staged PCI of LAD in 04/2015 -echo as above -cont ASA -cont lipitor -cont lopressor if tolerates from a copd standpoint DVT-LLE -on eliquis adjusted for renal fxn
[2016-08-18] MEDS: ERTAPENEM SODIUM 1 GM in SODIUM CHLORIDE 50 ML IVPB SCH (10:56)
[2016-08-18] MEDS: PANTOPRAZOLE 40 MG TABLET (FP) PO SCH (10:58)
--- NOTE | 2016-08-18 11:19 | PN ---
Progress Note, Physician History of Present Illness: patient doing much better still needing bipap in room legs erythema resolving - Current Medication List Current Medications: Active Medications Acetaminophen (Tylenol -) 650 mg PO Q6H PRN PRN Reason: PAIN Last Admin: 08/15/16 21:35 Dose: 650 mg Acetylcysteine (Mucomyst 20 Oral / Inh Use Only*) 600 mg NEB QIDR [facility] Last Admin: 08/18/16 00:03 Dose: 600 mg Albuterol Sulfate (Ventolin 0.083% Nebulizer Soln -) 1 amp NEB QIDR [facility] Last Admin: 08/18/16 00:03 Dose: 1 amp Amlodipine Besylate (Norvasc -) 10 mg PO DAILY [facility] Last Admin: 08/18/16 09:10 Dose: 10 mg Apixaban (Eliquis -) 2.5 mg PO BID [facility] Last Admin: 08/18/16 09:10 Dose: 2.5 mg Aspirin (Ecotrin -) 81 mg PO DAILY [facility] Last Admin: 08/18/16 09:10 Dose: 81 mg Atorvastatin Calcium (Lipitor -) 20 mg PO [facility] Last Admin: 08/17/16 22:09 Dose: 20 mg Bupropion HCl (Wellbutrin Xl -) 150 mg PO DAILY [facility] Last Admin: 08/18/16 10:58 Dose: 150 mg Chlorhexidine Gluconate (Hibiclens For Decolonization -) 1 applic TP [facility] Last Admin: 08/17/16 22:09 Dose: 1 applic Clindamycin HCl (Cleocin -) 300 mg PO Q6HPO [facility] Last Admin: 08/18/16 05:54 Dose: 300 mg Docusate Sodium (Colace -) 100 mg PO BID [facility] Last Admin: 08/18/16 09:08 Dose: 100 mg Duloxetine HCl (Cymbalta -) 60 mg PO DAILY [facility] Last Admin: 08/18/16 09:09 Dose: 60 mg Emollient Ointment (Aquaphor -) 1 applic TP BID [facility] Last Admin: 08/18/16 09:08 Dose: 1 applic Epoetin Keith (Procrit -) 10,000 unit SQ MoWeFr@1000 [facility] Last Admin: 08/16/16 17:52 Dose: Not Given Ferrous Sulfate (Feosol -) 325 mg PO BID [facility] Last Admin: 08/18/16 09:11 Dose: 325 mg Furosemide (Lasix Injection -) 80 mg IVPUSH BID@0600,1400 [facility] Last Admin: 08/18/16 05:54 Dose: 80 mg Guaifenesin (Robitussin Dm -) 10 ml PO Q6H PRN PRN Reason: COUGH Last Admin: 08/15/16 10:28 Dose: 10 ml Ertapenem 1 gm/ Sodium (Chloride) 50 mls @ 100 mls/hr IVPB DAILY [facility] PRN Reason: Protocol Last Admin: 08/18/16 10:56 Dose: 100 mls/hr Metoprolol Tartrate (Lopressor -) 25 mg PO BID [facility] Last Admin: 08/18/16 09:11 Dose: 25 mg Nystatin (Nystop Powder -) 1 applic TP DAILY [facility] Last Admin: 08/18/16 09:11 Dose: 1 applic Pantoprazole Sodium (Protonix -) 40 mg PO DAILY [facility] Last Admin: 08/18/16 10:58 Dose: 40 mg Polyethylene Glycol (Miralax (For Daily Use) -) 17 gm PO DAILY [facility] Last Admin: 08/17/16 09:30 Dose: Not Given Prednisone (Deltasone -) 40 mg PO DAILY [facility] Last Admin: 08/18/16 09:10 Dose: 40 mg Senna (Senna -) 2 tab PO DAILY [facility] Last Admin: 08/18/16 09:12 Dose: 2 tab Tamsulosin HCl (Flomax -) 0.4 mg PO DAILY@0830 [facility] Last Admin: 08/18/16 09:08 Dose: 0.4 mg - Objective Vital Signs: Vital Signs Temperature 97.8 F 08/18/16 06:00 Pulse Rate 82 08/18/16 10:19 Respiratory Rate 22 08/18/16 08:00 Blood Pressure 106/60 08/18/16 08:00 O2 Sat by Pulse Oximetry (%) 98 08/18/16 10:19 Constitutional: Yes: No Distress, Calm Neck: Yes: Supple Cardiovascular: Yes: Pulse Irregular Respiratory: Yes: On BiPap, Poor Air Entry Gastrointestinal: Yes: Normal Bowel Sounds, Soft Extremities: Yes: Other Integumentary: Yes: Erythema (resolving) Neurological: Yes: Alert, Oriented Psychiatric: Yes: Alert, Oriented Labs: CBC, BMP 08/18/16 05:15 08/18/16 05:15 INR, PTT INR 1.15 (0.82-1.09) H 08/16/16 08:27 - ....Imaging Chest X-ray: Report Reviewed, Image Reviewed Assessment/Plan Problem List - Problems (1) Acute and chronic respiratory failure with hypoxia Code(s): J96.21 - ACUTE AND CHRONIC RESPIRATORY FAILURE WITH HYPOXIA (2) Pneumonia Code(s): J18.9 - PNEUMONIA, UNSPECIFIED ORGANISM Qualifiers: Pneumonia type: due to unspecified organism Laterality: left Lung location: lower lobe of lung Qualified Code(s): J18.1 - Lobar pneumonia, unspecified organism (3) Pleural effusion Code(s): J90 - PLEURAL EFFUSION, NOT ELSEWHERE CLASSIFIED (4) Acute on chronic diastolic (congestive) heart failure Code(s): I50.33 - ACUTE ON CHRONIC DIASTOLIC (CONGESTIVE) HEART FAILURE (5) COPD (chronic obstructive pulmonary disease) Code(s): J44.9 - CHRONIC OBSTRUCTIVE PULMONARY DISEASE, UNSPECIFIED (6) Renal failure (ARF), acute on chronic Code(s): N17.9 - ACUTE KIDNEY FAILURE, UNSPECIFIED N18.9 - CHRONIC KIDNEY DISEASE, UNSPECIFIED (7) Diabetes Code(s): E11.9 - TYPE 2 DIABETES MELLITUS WITHOUT COMPLICATIONS Qualifiers: Diabetes mellitus type: type 2 Diabetes mellitus complication status: with kidney complications Diabetes mellitus complication detail: with chronic kidney disease (8) Atrial fibrillation Code(s): I48.91 - UNSPECIFIED ATRIAL FIBRILLATION 9 bilateral cellulitis of the legs plan continue abx will deescalate ertapenam by sun resp support incentive igor physio cc time 40 min
--- NOTE | 2016-08-18 13:18 | PN ---
Teaching Attending Note Name of Resident: Jenelle Nava ATTENDING PHYSICIAN STATEMENT I saw and evaluated the patient. I reviewed the resident's note and discussed the case with the resident. I agree with the resident's findings and plan as documented. SUBJECTIVE: Patient seen and examined in the ICU. Awake and alert on NIPPV. Reports feeling slightly better today. CXR: Some improvement of the left lung atelectasis in the MARTY Intake & Output 08/15/16 08/16/16 08/17/16 08/18/16 23:59 23:59 23:59 23:59 Intake Total 2310 800 940 Output Total 2700 3200 1800 450 Balance -390 -2400 -860 -450 Weight 221 lb 2 oz 221 lb 9.033 oz 215 lb 8 oz 217 lb Last Vital Signs Temp Pulse Resp BP Pulse Ox 97.7 F 76 22 114/59 98 08/18/16 10:00 08/18/16 12:00 08/18/16 12:00 08/18/16 12:00 08/18/16 10:19 Active Medications Acetaminophen (Tylenol -) 650 mg PO Q6H PRN PRN Reason: PAIN Last Admin: 08/15/16 21:35 Dose: 650 mg Acetylcysteine (Mucomyst 20 Oral / Inh Use Only*) 600 mg NEB QIDR [facility] Last Admin: 08/18/16 10:45 Dose: 600 mg Albuterol Sulfate (Ventolin 0.083% Nebulizer Soln -) 1 amp NEB QIDR [facility] Last Admin: 08/18/16 10:45 Dose: 1 amp Amlodipine Besylate (Norvasc -) 10 mg PO DAILY [facility] Last Admin: 08/18/16 09:10 Dose: 10 mg Apixaban (Eliquis -) 2.5 mg PO BID [facility] Last Admin: 08/18/16 09:10 Dose: 2.5 mg Aspirin (Ecotrin -) 81 mg PO DAILY [facility] Last Admin: 08/18/16 09:10 Dose: 81 mg Atorvastatin Calcium (Lipitor -) 20 mg PO HS [facility] Last Admin: 08/17/16 22:09 Dose: 20 mg Bupropion HCl (Wellbutrin Xl -) 150 mg PO DAILY [facility] Last Admin: 08/18/16 10:58 Dose: 150 mg Chlorhexidine Gluconate (Hibiclens For Decolonization -) 1 applic TP [facility] Last Admin: 08/17/16 22:09 Dose: 1 applic Clindamycin HCl (Cleocin -) 300 mg PO Q6HPO [facility] Last Admin: 08/18/16 05:54 Dose: 300 mg Docusate Sodium (Colace -) 100 mg PO BID [facility] Last Admin: 08/18/16 09:08 Dose: 100 mg Duloxetine HCl (Cymbalta -) 60 mg PO DAILY [facility] Last Admin: 08/18/16 09:09 Dose: 60 mg Emollient Ointment (Aquaphor -) 1 applic TP BID [facility] Last Admin: 08/18/16 09:08 Dose: 1 applic Epoetin Keith (Procrit -) 10,000 unit SQ MoWeFr@1000 [facility] Last Admin: 08/16/16 17:52 Dose: Not Given Ferrous Sulfate (Feosol -) 325 mg PO BID [facility] Last Admin: 08/18/16 09:11 Dose: 325 mg Furosemide (Lasix Injection -) 80 mg IVPUSH BID@0600,1400 [facility] Last Admin: 08/18/16 05:54 Dose: 80 mg Guaifenesin (Robitussin Dm -) 10 ml PO Q6H PRN PRN Reason: COUGH Last Admin: 08/15/16 10:28 Dose: 10 ml Ertapenem 1 gm/ Sodium (Chloride) 50 mls @ 100 mls/hr IVPB DAILY [facility] PRN Reason: Protocol Last Admin: 08/18/16 10:56 Dose: 100 mls/hr Metoprolol Tartrate (Lopressor -) 25 mg PO BID [facility] Last Admin: 08/18/16 09:11 Dose: 25 mg Nystatin (Nystop Powder -) 1 applic TP DAILY [facility] Last Admin: 08/18/16 09:11 Dose: 1 applic Pantoprazole Sodium (Protonix -) 40 mg PO DAILY [facility] Last Admin: 08/18/16 10:58 Dose: 40 mg Polyethylene Glycol (Miralax (For Daily Use) -) 17 gm PO DAILY [facility] Last Admin: 08/17/16 09:30 Dose: Not Given Prednisone (Deltasone -) 40 mg PO DAILY [facility] Last Admin: 08/18/16 09:10 Dose: 40 mg Senna (Senna -) 2 tab PO DAILY [facility] Last Admin: 08/18/16 09:12 Dose: 2 tab Tamsulosin HCl (Flomax -) 0.4 mg PO DAILY@0830 [facility] Last Admin: 08/18/16 09:08 Dose: 0.4 mg Gen: Awake and alert, mildly tachypneic on BiPAP Heart: RRR Lung: decreased breath sounds on left Abd: soft, nontender Ext: + edema, chronic stasis changes Laboratory Results - last 24 hr 08/18/16 08/18/16 05:15 05:15 WBC 12.1 H RBC 3.00 L Hgb 8.4 L Hct 26.3 L MCV 87.6 MCHC 32.0 RDW 16.9 H Plt Count 260 MPV 7.3 L Neutrophils % 88.0 H Lymphocytes % 6.1 L D Monocytes % 5.4 Eosinophils % 0.4 Basophils % 0.1 Sodium 146 H Potassium 4.0 Chloride 96 L Carbon Dioxide 36 H Anion Gap 14 BUN 71 H Creatinine 1.9 H Creat Clearance w eGFR 34.92 Random Glucose 78 Calcium 8.4 L Phosphorus 5.0 H Magnesium 2.8 H Total Bilirubin 0.7 D AST 10 L ALT 13 Alkaline Phosphatase 63 Total Protein 5.1 L Albumin 2.6 L ASSESSMENT AND PLAN: Acute on Chronic Hypoxic and Hypercapneic Respiratory Failure Acute on Chronic Diastolic Heart Failure Pleural Effusion Acute on Chronic Renal Failure Atelectasis Atrial fibrillation CAD s/p stents COPD HTN Hyperlipidemia h/o PE/DVT h/o GI Bleed - Aggressive Chest PT - Mucolytics - NIPPV support as needed - O2 to keep SPo2 >90% - Lasix - monitor urine output, creatinine - monitor CXR - rate controlled - AC Dr Vasquez Critical care time spent in reviewing chart, evaluating patient and formulating plan 38 min
[2016-08-18] MEDS ORDERED: PT OWN MED DRAWER 7, Y5N ONE ×4 (14:54→21:12)
[2016-08-18] MEDS: POLYETHYLENE GLYCOL 3350 119 GM BTL PO SCH (15:02)
--- NOTE | 2016-08-18 16:09 | PN ---
[id number] bedside he reports feeling good today, he denies any chest pain or shortness of breath Current Medications Generic Name Dose Route Start Last Admin Trade Name Freq PRN Reason Stop Dose Admin Acetaminophen 650 mg 08/14/16 17:14 08/15/16 21:35 Tylenol - PO 650 mg Q6H PRN Administration PAIN Acetylcysteine 600 mg 08/16/16 12:30 08/18/16 10:45 Mucomyst 20 Oral / Inh Use Only* NEB 600 mg QIDR [facility] Administration Albuterol Sulfate 1 amp 08/17/16 18:00 08/18/16 10:45 Ventolin 0.083% Nebulizer Soln - NEB 1 amp QIDR [facility] Administration Amlodipine Besylate 10 mg 08/15/16 10:00 08/18/16 09:10 Norvasc - PO 10 mg DAILY [facility] Administration Apixaban 2.5 mg 08/14/16 22:00 08/18/16 09:10 Eliquis - PO 2.5 mg BID [facility] Administration Aspirin 81 mg 08/15/16 10:00 08/18/16 09:10 Ecotrin - PO 81 mg DAILY [facility] Administration Atorvastatin Calcium 20 mg 08/14/16 22:00 08/17/16 22:09 Lipitor - PO 20 mg HS [facility] Administration Bupropion HCl 150 mg 08/15/16 10:00 08/18/16 10:58 Wellbutrin Xl - PO 150 mg DAILY [facility] Administration Chlorhexidine Gluconate 1 applic 08/14/16 22:00 08/17/16 22:09 Hibiclens For Decolonization - TP 1 applic HS [facility] Administration Clindamycin HCl 300 mg 08/15/16 00:00 08/18/16 15:02 Cleocin - PO 300 mg Q6HPO [facility] Administration Docusate Sodium 100 mg 08/14/16 22:00 08/18/16 09:08 Colace - PO 100 mg BID [facility] Administration Duloxetine HCl 60 mg 08/15/16 10:00 08/18/16 09:09 Cymbalta - PO 60 mg DAILY [facility] Administration Emollient Ointment 1 applic 08/14/16 22:00 08/18/16 09:08 Aquaphor - TP 1 applic BID [facility] Administration Epoetin Keith 10,000 unit 08/16/16 10:00 08/16/16 17:52 Procrit - SQ Not Given MoWeFr@1000 [facility] Ferrous Sulfate 325 mg 08/14/16 22:00 08/18/16 09:11 Feosol - PO 325 mg BID [facility] Administration Furosemide 80 mg 08/16/16 14:00 08/18/16 15:02 Lasix Injection - IVPUSH 80 mg BID@0600,1400 [facility] Administration Guaifenesin 10 ml 08/14/16 17:14 08/15/16 10:28 Robitussin Dm - PO 10 ml Q6H PRN Administration COUGH Ertapenem 1 gm/ Sodium 50 mls @ 100 mls/hr 08/15/16 18:15 08/18/16 10:56 Chloride IVPB 100 mls/hr DAILY [facility] Administration Protocol Metoprolol Tartrate 25 mg 08/14/16 22:00 08/18/16 09:11 Lopressor - PO 25 mg BID [facility] Administration Nystatin 1 applic 08/15/16 10:00 08/18/16 09:11 Nystop Powder - TP 1 applic DAILY [facility] Administration Pantoprazole Sodium 40 mg 08/15/16 10:00 08/18/16 10:58 Protonix - PO 40 mg DAILY [facility] Administration Polyethylene Glycol 17 gm 08/14/16 15:15 08/18/16 15:02 Miralax (For Daily Use) - PO Not Given DAILY [facility] Prednisone 40 mg 08/15/16 10:00 08/18/16 09:10 Deltasone - PO 40 mg DAILY [facility] Administration Senna 2 tab 08/15/16 10:00 08/18/16 09:12 Senna - PO 2 tab DAILY [facility] Administration Tamsulosin HCl 0.4 mg 08/15/16 08:30 08/18/16 09:08 Flomax - PO 0.4 mg DAILY@0830 [facility] Administration Objective: Vital Signs Period Temp Pulse Resp BP Sys/[place] Pulse Ox Last 24 Hr 97.7 F-98 F 52-82 17-24 104-155/56-75 92-100 Physical Exam: General: NAD, A&Ox3 Lungs: Decreased breath sounds on the left Heart: RRR, S1S2 Abd: Soft, non-tender, non-distended. Normoactive bowel sounds Ext: B/l lower extremity edema. Chronic venous stasis changes CBCD WBC 12.1 K/mm3 (4.0-10.0) H 08/18/16 05:15 RBC 3.00 M/mm3 (4.00-5.60) L 08/18/16 05:15 Hgb 8.4 GM/dL (11.7-16.9) L 08/18/16 05:15 Hct 26.3 % (35.4-49) L 08/18/16 05:15 MCV 87.6 fl (80-96) 08/18/16 05:15 MCHC 32.0 g/dl (32.0-35.9) 08/18/16 05:15 RDW 16.9 % (11.9-15.9) H 08/18/16 05:15 Plt Count 260 K/MM3 (134-434) 08/18/16 05:15 MPV 7.3 fl (7.5-11.1) L 08/18/16 05:15 CMP Sodium 146 mmol/L (136-145) H 08/18/16 05:15 Potassium 4.0 mmol/L (3.5-5.1) 08/18/16 05:15 Chloride 96 mmol/L (98-107) L 08/18/16 05:15 Carbon Dioxide 36 mmol/L (21-32) H 08/18/16 05:15 Anion Gap 14 (8-16) 08/18/16 05:15 BUN 71 mg/dL (7-18) H 08/18/16 05:15 Creatinine 1.9 mg/dL (0.7-1.3) H 08/18/16 05:15 Creat Clearance w eGFR 34.92 (>60) 08/18/16 05:15 Random Glucose 78 mg/dL (74-106) 08/18/16 05:15 Calcium 8.4 mg/dL (8.5-10.1) L 08/18/16 05:15 Total Bilirubin 0.7 mg/dL (0.2-1.0) D 08/18/16 05:15 AST 10 U/L (15-37) L 08/18/16 05:15 ALT 13 U/L (12-78) 08/18/16 05:15 Alkaline Phosphatase 63 U/L (45-117) 08/18/16 05:15 Total Protein 5.1 g/dl (6.4-8.2) L 08/18/16 05:15 Albumin 2.6 g/dl (3.4-5.0) L 08/18/16 05:15 CARDIAC ENZYMES Creatine Kinase 26 IU/L (39-308) L 08/11/16 23:00 Troponin I < 0.02 ng/ml (0.00-0.05) 08/11/16 23:00 Microbiology 08/12/16 06:00 Nasopharyngeal Swab Respiratory Virus (PCR) - Final 08/11/16 18:20 Blood - Peripheral Venous Blood Culture - Final NO GROWTH AFTER 5 DAYS INCUBATION 08/11/16 18:20 Blood - Peripheral Venous Blood Culture - Final NO GROWTH AFTER 5 DAYS INCUBATION 08/12/16 06:00 Sputum - Expectorated Gram Stain - Final 08/12/16 06:00 Sputum - Expectorated Sputum Culture - Final NORMAL RESPIRATORY FAWN 08/12/16 00:00 Pleural Fluid Gram Stain - Final 08/12/16 00:00 Pleural Fluid Body Fluid Culture - Final NO GROWTH OF AEROBIC ORGANISMS AFTER 48 HOURS INCUBATION 08/12/16 00:00 Pleural Fluid Anaerobic Culture - Final NO ANAEROBES WERE ISOLATED 08/11/16 16:55 Urine - Urine - Catheterized Urine Culture - Final NO GROWTH OBTAINED 08/12/16 12:00 Urine - Urine Clifford Legionella Antigen - Final 08/12/16 12:00 Urine - Urine Clifford Streptococcus pneumoniae Antigen (M - Final Assessment: This is a 75 year old male with PMHx of HTN, hyperlipidemia, CAD s/ p stenting x2 (2014), diastolic heart failure, a.fib, COPD, respiratory failure requiring intubation (02/2016-04/2016), GI bleed, h/o DVT and PE who presented from the [facility] for shortness of breath. Plan: 1) Pulmonary: Acute on chronic hypoxic and hypercapnic respiratory failure, pleural effusions, Acute COPD exacerbation - Chest CT atelectasis of the left lung with moderate pleural effusion. Moderate right pleural effusion with lower lobe atelectasis - Chest X-ray today with opacification of the left hemithorax. Small vascular congestion is seen in the right hemithorax - NIPPV at night and PRN - Continue Prednisone 40mg po daily - Mucomyst meds qid - Albuterol nebs qid - Chest PT bid - Encourage coughing and deep breathing - Incentive spirometry - Appreciate pulmonary consult B/l pleural effusions 2) ID: pneumonia - Continue Clindamycin (08/12- ) - Continue Ertapenem (08/15- ), has been on carbapenem since 08/11 - WBC trended up slightly today - Remains afebrile - Appreciate ID consult 3) Cardiology: Acute on chronic combined systolic and diastolic heart failure - Echo 05/2016 showed normal LV systolic function, no sig valvular abnl - Continue Lasix 80mg IVP bid - Monitor Chest x-rays - Appreciate cardiology consult CAD s/p PCI 03/2015, 04/2015 - Continue ASA - Continue Lipitor - Continue Lopressor DVT LLE - Continue Eliquis (renally dosed) 4) : KARLOS on CKD - Cr 1.9 ~ baseline - Continue to monitor 5) F/E/N: - Monitor electrolytes - Diabetic/low sodium diet 6) Prophylaxis: - On Eliquis 7) Dispo: - Requires continued ICU care CODE STATUS: FULL CODE Visit type - Emergency Visit Emergency Visit: Yes ED Registration Date: 08/11/16 Care time: The patient presented to the Emergency Department on the above date and was hospitalized for further evaluation of their emergent condition. - New Patient This patient is new to me today: No - Critical Care Critical Care patient: No
--- NOTE | 2016-08-18 16:41 | PN ---
Physical Exam: SUBJECTIVE: Patient seen and examined. He is on BiPap, no improvement. No overnight events. OBJECTIVE: Vital Signs Period Temp Pulse Resp BP Sys/[place] Pulse Ox Last 24 Hr 97.7 F-97.8 F 52-82 17-24 104-155/56-75 92-100 GENERAL: The patient is awake, alert, and fully oriented, in no acute distress. HEAD: Normal with no signs of trauma. EYES: PERRL, extraocular movements intact, sclera anicteric, conjunctiva clear. No ptosis. ENT: Ears normal, nares patent, oropharynx clear without exudates, moist mucous membranes. NECK: Trachea midline, full range of motion, supple. LUNGS: Breath sounds equal, clear to auscultation bilaterally, no wheezes, no crackles, no accessory muscle use. HEART: Regular rate and rhythm, S1, S2 without murmur, rub or gallop. ABDOMEN: Soft, nontender, nondistended, normoactive bowel sounds, no guarding, no rebound, no hepatosplenomegaly, no masses. EXTREMITIES: 2+ pulses, warm, well-perfused, no edema. NEUROLOGICAL: Cranial nerves II through XII grossly intact. Normal speech, gait not observed. PSYCH: Normal mood, normal affect. SKIN: Warm, dry, normal turgor, no rashes or lesions noted Laboratory Results - last 24 hr 08/18/16 08/18/16 05:15 05:15 WBC 12.1 H RBC 3.00 L Hgb 8.4 L Hct 26.3 L MCV 87.6 MCHC 32.0 RDW 16.9 H Plt Count 260 MPV 7.3 L Neutrophils % 88.0 H Lymphocytes % 6.1 L D Monocytes % 5.4 Eosinophils % 0.4 Basophils % 0.1 Sodium 146 H Potassium 4.0 Chloride 96 L Carbon Dioxide 36 H Anion Gap 14 BUN 71 H Creatinine 1.9 H Creat Clearance w eGFR 34.92 Random Glucose 78 Calcium 8.4 L Phosphorus 5.0 H Magnesium 2.8 H Total Bilirubin 0.7 D AST 10 L ALT 13 Alkaline Phosphatase 63 Total Protein 5.1 L Albumin 2.6 L Active Medications Generic Name Dose Route Start Last Admin Trade Name Freq PRN Reason Stop Dose Admin Acetaminophen 650 mg 08/14/16 17:14 08/15/16 21:35 Tylenol - PO 650 mg Q6H PRN Administration PAIN Acetylcysteine 600 mg 08/16/16 12:30 08/18/16 10:45 Mucomyst 20 Oral / Inh Use Only* NEB 600 mg QIDR [facility] Administration Albuterol Sulfate 1 amp 08/17/16 18:00 08/18/16 10:45 Ventolin 0.083% Nebulizer Soln - NEB 1 amp QIDR [facility] Administration Amlodipine Besylate 10 mg 08/15/16 10:00 08/18/16 09:10 Norvasc - PO 10 mg DAILY [facility] Administration Apixaban 2.5 mg 08/14/16 22:00 08/18/16 09:10 Eliquis - PO 2.5 mg BID [facility] Administration Aspirin 81 mg 08/15/16 10:00 08/18/16 09:10 Ecotrin - PO 81 mg DAILY [facility] Administration Atorvastatin Calcium 20 mg 08/14/16 22:00 08/17/16 22:09 Lipitor - PO 20 mg HS [facility] Administration Bupropion HCl 150 mg 08/15/16 10:00 08/18/16 10:58 Wellbutrin Xl - PO 150 mg DAILY [facility] Administration Chlorhexidine Gluconate 1 applic 08/14/16 22:00 08/17/16 22:09 Hibiclens For Decolonization - TP 1 applic HS [facility] Administration Clindamycin HCl 300 mg 08/15/16 00:00 08/18/16 15:02 Cleocin - PO 300 mg Q6HPO [facility] Administration Docusate Sodium 100 mg 08/14/16 22:00 08/18/16 09:08 Colace - PO 100 mg BID [facility] Administration Duloxetine HCl 60 mg 08/15/16 10:00 08/18/16 09:09 Cymbalta - PO 60 mg DAILY [facility] Administration Emollient Ointment 1 applic 08/14/16 22:00 08/18/16 09:08 Aquaphor - TP 1 applic BID [facility] Administration Epoetin Keith 10,000 unit 08/16/16 10:00 08/16/16 17:52 Procrit - SQ Not Given MoWeFr@1000 [facility] Ferrous Sulfate 325 mg 08/14/16 22:00 08/18/16 09:11 Feosol - PO 325 mg BID [facility] Administration Furosemide 80 mg 08/16/16 14:00 08/18/16 15:02 Lasix Injection - IVPUSH 80 mg BID@0600,1400 [facility] Administration Guaifenesin 10 ml 08/14/16 17:14 08/15/16 10:28 Robitussin Dm - PO 10 ml Q6H PRN Administration COUGH Ertapenem 1 gm/ Sodium 50 mls @ 100 mls/hr 08/15/16 18:15 08/18/16 10:56 Chloride IVPB 100 mls/hr DAILY [facility] Administration Protocol Metoprolol Tartrate 25 mg 08/14/16 22:00 08/18/16 09:11 Lopressor - PO 25 mg BID [facility] Administration Nystatin 1 applic 08/15/16 10:00 08/18/16 09:11 Nystop Powder - TP 1 applic DAILY [facility] Administration Pantoprazole Sodium 40 mg 08/15/16 10:00 08/18/16 10:58 Protonix - PO 40 mg DAILY [facility] Administration Polyethylene Glycol 17 gm 08/14/16 15:15 08/18/16 15:02 Miralax (For Daily Use) - PO Not Given DAILY [facility] Prednisone 40 mg 08/15/16 10:00 08/18/16 09:10 Deltasone - PO 40 mg DAILY [facility] Administration Senna 2 tab 08/15/16 10:00 08/18/16 09:12 Senna - PO 2 tab DAILY [facility] Administration Tamsulosin HCl 0.4 mg 08/15/16 08:30 08/18/16 09:08 Flomax - PO 0.4 mg DAILY@0830 [facility] Administration ASSESSMENT/PLAN: Problem List - Problems (1) Acute and chronic respiratory failure with hypoxia Code(s): J96.21 - ACUTE AND CHRONIC RESPIRATORY FAILURE WITH HYPOXIA (2) Atrial fibrillation Code(s): I48.91 - UNSPECIFIED ATRIAL FIBRILLATION (3) GERD (gastroesophageal reflux disease) Code(s): K21.9 - GASTRO-ESOPHAGEAL REFLUX DISEASE WITHOUT ESOPHAGITIS (4) Pleural effusion Code(s): J90 - PLEURAL EFFUSION, NOT ELSEWHERE CLASSIFIED (5) Chronic kidney disease (CKD) Code(s): N18.9 - CHRONIC KIDNEY DISEASE, UNSPECIFIED Qualifiers: Chronic kidney disease stage: unspecified stage Qualified Code(s): N18.9 - Chronic kidney disease, unspecified (6) Congestive heart failure Code(s): I50.9 - HEART FAILURE, UNSPECIFIED (7) Diabetes Code(s): E11.9 - TYPE 2 DIABETES MELLITUS WITHOUT COMPLICATIONS Qualifiers: Diabetes mellitus type: type 2 Diabetes mellitus complication status: with kidney complications Diabetes mellitus complication detail: with chronic kidney disease Visit type - Emergency Visit Emergency Visit: Yes ED Registration Date: 08/11/16 Care time: The patient presented to the Emergency Department on the above date and was hospitalized for further evaluation of their emergent condition. - New Patient This patient is new to me today: No - Critical Care Critical Care patient: Yes Total Critical Care Time (in minutes): 50 Critical Care Statement: The care of this patient involved high complexity decision making to prevent further life threatening deterioration of the patient 's condition and/or to evalute & treat vital organ system(s) failure or risk of failure.
[2016-08-18] MEDS: EPOETIN ALFA 10,000 UNIT/1 ML VIAL SQ SCH (19:34)
[2016-08-18] MEDS: ATORVASTATIN CA 20 MG TABLET (FP) PO SCH (21:14)
[2016-08-18] MEDS: CHLORHEXIDINE GLUCONATE 4% CLEANSER FOR DECOLONIZATION TP SCH (21:15)
[2016-08-19] MEDS: CLINDAMYCIN HCL 150 MG CAPSULE (FP) PO SCH ×4 (00:45→18:50)
[2016-08-19] MEDS: ALBUTEROL SO4 0.083% IH SOL 2.5 MG/3 ML VIAL.NEB. NEB SCH ×4 (06:00→18:07)
[2016-08-19] MEDS: ACETYLCYSTEINE 20% 200MG/ML 4 ML VIAL *FOR ORAL / INH USE ONLY NEB SCH ×4 (06:00→18:07)
[2016-08-19 06:27] LABS: BASOPHIL 0.3 % (0-2.0); EOSINOPHIL 0.8 % (0-4.5); MCH 28.6 pg (25.7-33.7); MCHC 32.8 g/dl (32.0-35.9); MEAN CELL VOLUME 87.2 fl (80-96); MEAN PLT VOLUME 7.3 fl (7.5-11.1); NEUTROPHILS 87.4 % (42.8-82.8); PLATELET COUNT 230 K/MM3 (134-434); WHITE BLOOD COUNT 10.9 K/mm3 (4.0-10.0)
[2016-08-19] MEDS: FUROSEMIDE 40 MG/4 ML INJECTABLE VIAL IVPUSH SCH ×2 (06:55→15:06)
[2016-08-19 07:11] LABS: ALBUMIN 2.3 g/dl (3.4-5.0); CALCIUM 8.1 mg/dL (8.5-10.1)
[2016-08-19 07:15] LABS: BILIRUBIN,TOTAL 0.5 mg/dL (0.2-1.0); COCKROFT - GAULT 48.2; CREATININE 1.9 mg/dL (0.7-1.3)
--- NOTE | 2016-08-19 08:20 | PN ---
Progress Note, Physician Chief Complaint: alert TELE: NSR, rare VPCs - Current Medication List Current Medications: Active Medications Acetaminophen (Tylenol -) 650 mg PO Q6H PRN PRN Reason: PAIN Last Admin: 08/15/16 21:35 Dose: 650 mg Acetylcysteine (Mucomyst 20 Oral / Inh Use Only*) 600 mg NEB QIDR [facility] Last Admin: 08/19/16 06:00 Dose: 600 mg Albuterol Sulfate (Ventolin 0.083% Nebulizer Soln -) 1 amp NEB QIDR [facility] Last Admin: 08/19/16 06:00 Dose: 1 amp Amlodipine Besylate (Norvasc -) 10 mg PO DAILY [facility] Last Admin: 08/18/16 09:10 Dose: 10 mg Apixaban (Eliquis -) 2.5 mg PO BID [facility] Last Admin: 08/18/16 21:14 Dose: 2.5 mg Aspirin (Ecotrin -) 81 mg PO DAILY [facility] Last Admin: 08/18/16 09:10 Dose: 81 mg Atorvastatin Calcium (Lipitor -) 20 mg PO HS [facility] Last Admin: 08/18/16 21:14 Dose: 20 mg Bupropion HCl (Wellbutrin Xl -) 150 mg PO DAILY [facility] Last Admin: 08/18/16 10:58 Dose: 150 mg Chlorhexidine Gluconate (Hibiclens For Decolonization -) 1 applic TP HS [facility] Last Admin: 08/18/16 21:15 Dose: 1 applic Clindamycin HCl (Cleocin -) 300 mg PO Q6HPO [facility] Last Admin: 08/19/16 06:55 Dose: 300 mg Docusate Sodium (Colace -) 100 mg PO BID [facility] Last Admin: 08/18/16 21:14 Dose: 100 mg Duloxetine HCl (Cymbalta -) 60 mg PO DAILY [facility] Last Admin: 08/18/16 09:09 Dose: 60 mg Emollient Ointment (Aquaphor -) 1 applic TP BID [facility] Last Admin: 08/18/16 21:15 Dose: 1 applic Epoetin Keith (Procrit -) 10,000 unit SQ MoWeFr@1000 [facility] Last Admin: 08/18/16 19:34 Dose: 10,000 unit Ferrous Sulfate (Feosol -) 325 mg PO BID [facility] Last Admin: 08/18/16 21:14 Dose: 325 mg Furosemide (Lasix Injection -) 80 mg IVPUSH BID@0600,1400 [facility] Last Admin: 08/19/16 06:55 Dose: 80 mg Guaifenesin (Robitussin Dm -) 10 ml PO Q6H PRN PRN Reason: COUGH Last Admin: 08/15/16 10:28 Dose: 10 ml Ertapenem 1 gm/ Sodium (Chloride) 50 mls @ 100 mls/hr IVPB DAILY [facility] PRN Reason: Protocol Last Admin: 08/18/16 10:56 Dose: 100 mls/hr Metoprolol Tartrate (Lopressor -) 25 mg PO BID [facility] Last Admin: 08/18/16 21:14 Dose: 25 mg Nystatin (Nystop Powder -) 1 applic TP DAILY [facility] Last Admin: 08/18/16 09:11 Dose: 1 applic Pantoprazole Sodium (Protonix -) 40 mg PO DAILY [facility] Last Admin: 08/18/16 10:58 Dose: 40 mg Polyethylene Glycol (Miralax (For Daily Use) -) 17 gm PO DAILY [facility] Last Admin: 08/18/16 15:02 Dose: Not Given Prednisone (Deltasone -) 40 mg PO DAILY [facility] Last Admin: 08/18/16 09:10 Dose: 40 mg Senna (Senna -) 2 tab PO DAILY [facility] Last Admin: 08/18/16 09:12 Dose: 2 tab Tamsulosin HCl (Flomax -) 0.4 mg PO DAILY@0830 [facility] Last Admin: 08/18/16 09:08 Dose: 0.4 mg - Objective Vital Signs: Vital Signs Temperature 97.6 F 08/19/16 06:00 Pulse Rate 59 L 08/19/16 06:00 Respiratory Rate 26 H 08/19/16 06:00 Blood Pressure 118/60 08/19/16 06:00 O2 Sat by Pulse Oximetry (%) 97 08/18/16 22:00 Constitutional: Yes: No Distress Cardiovascular: Yes: Regular Rate and Rhythm Respiratory: Yes: Other (decreased breath sounds at bases L>R) Gastrointestinal: Yes: Soft, Abdomen, Obese Edema: Yes Edema: LLE: 1+, RLE: 1+ Neurological: Yes: Alert Labs: CBC, BMP 08/19/16 05:30 08/19/16 05:30 INR, PTT INR 1.15 (0.82-1.09) H 08/16/16 08:27 Laboratory Tests 08/18/16 08/18/16 08/19/16 05:15 05:15 05:30 WBC 12.1 H Hgb 8.4 L Hct 26.3 L Plt Count 260 Sodium 146 H 144 Potassium 4.0 3.4 L BUN 71 H 64 H Creatinine 1.9 H 1.9 H Calcium 8.4 L Phosphorus 5.0 H Magnesium 2.8 H Total Bilirubin 0.7 D AST 10 L ALT 13 Alkaline Phosphatase 63 Total Protein 5.1 L Albumin 2.6 L 08/19/16 05:30 WBC 10.9 H Hgb 7.8 L Hct Plt Count 230 Sodium Potassium BUN Creatinine Calcium Phosphorus Magnesium Total Bilirubin AST ALT Alkaline Phosphatase Total Protein Albumin - ....Imaging EKG: Image Reviewed Assessment/Plan Assessment/Plan 75 year old man with a history of HTN, COPD on home O2, Chronic combined systolic/diastolic CHF, CKD, JOY, CAD moderate LV systolic dysfunction, cardiac cath 03/2015 showed 2VD with RCA and LAD disease s/p PCI with ABDON of RCA 2014 and staged PCI of LAD in 04/2015 with significant improvement in symptoms for some time, followed by multiple admissions for respiratory failure, sepsis, KARLOS, has been in [place], recently tx for presumed PNA, admitted with sob and recurrent pleural effusions. SOB-multifactorial, PNA, AE COPD, pleural effusions, acute on chronic combined systolic/diastolic CHF -Contine Bipap and IV Lasix -last echo 05/2016 showed normal LV systolic function, no sig valvular abnl -receiving steroids and Abx CAD-PCI with ABDON of RCA 03/2015 and staged PCI of LAD in 04/2015 -echo as above -cont ASA -cont lipitor -cont lopressor if tolerates from a copd standpoint DVT-LLE -on eliquis adjusted for renal fxn
[2016-08-19] MEDS: SENNOSIDES 8.6MG TABLET (FP) PO SCH (09:30)
[2016-08-19] MEDS: FERROUS SO4 325 MG TABLET (FP) PO SCH ×2 (09:31→22:39)
[2016-08-19] MEDS: METOPROLOL TARTRATE 25 MG TABLET (FP) PO SCH ×2 (09:32→22:39)
[2016-08-19] MEDS: predniSONE 20 MG TABLET (UD) PO SCH (09:33)
[2016-08-19] MEDS: MINERAL OIL/PET HY-PHL TOPICAL OINTMENT 454 GM JAR TP SCH ×2 (09:33→22:40)
[2016-08-19] MEDS: TAMSULOSIN HCL 0.4 MG CAP.ER.24H (FP) PO SCH (09:33)
[2016-08-19] MEDS: PANTOPRAZOLE 40 MG TABLET (FP) PO SCH (09:34)
[2016-08-19] MEDS: DULoxetine HCL 30 MG CAPSULE.DR (FP) PO SCH (09:34)
[2016-08-19] MEDS: NYSTATIN POWDER 100,000 UNITS/GM - 15 GM TOPICAL POWDER TP SCH (09:34)
[2016-08-19] MEDS: amLODIPine BESYLATE 10 MG TABLET (FP) PO SCH (09:34)
[2016-08-19] MEDS: APIXABAN 2.5 MG TABLET PO SCH ×2 (09:35→22:39)
[2016-08-19] MEDS: ASPIRIN COATED 81 MG TABLET.EC PO SCH (09:35)
[2016-08-19] MEDS: DOCUSATE SODIUM 100 MG CAPSULE (FP) PO SCH ×2 (09:36→22:39)
[2016-08-19] MEDS ORDERED: PT OWN MED DRAWER 7, Y5N ONE ×2 (09:38→21:48)
[2016-08-19] MEDS ORDERED: POTASSIUM CHLORIDE TABS 20 MEQ TABLET.ER (FP) PO ONE (10:03)
--- NOTE | 2016-08-19 10:03 | PN ---
Progress Note (short form) - Note Progress Note: PULMONARY/CCM Pt seen and examined in the ICU. On NRB saturating low 90s. Still with cough and wheezing. Last Vital Signs Temp Pulse Resp BP Pulse Ox 97.6 F 65 24 119/58 97 08/19/16 06:00 08/19/16 08:00 08/19/16 08:41 08/19/16 08:00 08/18/16 22:00 Intake & Output 08/16/16 08/17/16 08/18/16 08/19/16 23:59 23:59 23:59 23:59 Intake Total 800 940 130 170 Output Total 3200 1800 1450 500 Balance -2400 -860 -1320 -330 Weight 221 lb 9.033 oz 215 lb 8 oz 217 lb 217 lb 14.4 oz Gen: tachypneic at rest Heart: RRR Lung: decreased breath sounds left base, scattered rhonchi Abd: soft, nontender Ext: no edema, chronic changes CBC, BMP 08/19/16 05:30 08/19/16 05:30 Active Medications Acetaminophen (Tylenol -) 650 mg PO Q6H PRN PRN Reason: PAIN Last Admin: 08/15/16 21:35 Dose: 650 mg Acetylcysteine (Mucomyst 20 Oral / Inh Use Only*) 600 mg NEB QIDR [facility] Last Admin: 08/19/16 06:00 Dose: 600 mg Albuterol Sulfate (Ventolin 0.083% Nebulizer Soln -) 1 amp NEB QIDR [facility] Last Admin: 08/19/16 06:00 Dose: 1 amp Amlodipine Besylate (Norvasc -) 10 mg PO DAILY [facility] Last Admin: 08/19/16 09:34 Dose: 10 mg Apixaban (Eliquis -) 2.5 mg PO BID [facility] Last Admin: 08/19/16 09:35 Dose: 2.5 mg Aspirin (Ecotrin -) 81 mg PO DAILY [facility] Last Admin: 08/19/16 09:35 Dose: 81 mg Atorvastatin Calcium (Lipitor -) 20 mg PO HS [facility] Last Admin: 08/18/16 21:14 Dose: 20 mg Bupropion HCl (Wellbutrin Xl -) 150 mg PO DAILY [facility] Last Admin: 08/19/16 09:32 Dose: 150 mg Chlorhexidine Gluconate (Hibiclens For Decolonization -) 1 applic TP HS [facility] Last Admin: 08/18/16 21:15 Dose: 1 applic Clindamycin HCl (Cleocin -) 300 mg PO Q6HPO [facility] Last Admin: 08/19/16 06:55 Dose: 300 mg Docusate Sodium (Colace -) 100 mg PO BID [facility] Last Admin: 08/19/16 09:36 Dose: 100 mg Duloxetine HCl (Cymbalta -) 60 mg PO DAILY [facility] Last Admin: 08/19/16 09:34 Dose: 60 mg Emollient Ointment (Aquaphor -) 1 applic TP BID [facility] Last Admin: 08/19/16 09:33 Dose: 1 applic Epoetin Keith (Procrit -) 10,000 unit SQ MoWeFr@1000 [facility] Last Admin: 08/18/16 19:34 Dose: 10,000 unit Ferrous Sulfate (Feosol -) 325 mg PO BID [facility] Last Admin: 08/19/16 09:31 Dose: 325 mg Furosemide (Lasix Injection -) 80 mg IVPUSH BID@0600,1400 [facility] Last Admin: 08/19/16 06:55 Dose: 80 mg Guaifenesin (Robitussin Dm -) 10 ml PO Q6H PRN PRN Reason: COUGH Last Admin: 08/15/16 10:28 Dose: 10 ml Ertapenem 1 gm/ Sodium (Chloride) 50 mls @ 100 mls/hr IVPB DAILY [facility] PRN Reason: Protocol Last Admin: 08/18/16 10:56 Dose: 100 mls/hr Metoprolol Tartrate (Lopressor -) 25 mg PO BID [facility] Last Admin: 08/19/16 09:32 Dose: 25 mg Nystatin (Nystop Powder -) 1 applic TP DAILY [facility] Last Admin: 08/19/16 09:34 Dose: 1 applic Pantoprazole Sodium (Protonix -) 40 mg PO DAILY [facility] Last Admin: 08/19/16 09:34 Dose: 40 mg Polyethylene Glycol (Miralax (For Daily Use) -) 17 gm PO DAILY [facility] Last Admin: 08/18/16 15:02 Dose: Not Given Prednisone (Deltasone -) 40 mg PO DAILY [facility] Last Admin: 08/19/16 09:33 Dose: 40 mg Senna (Senna -) 2 tab PO DAILY [facility] Last Admin: 05/13/17 09:30 Dose: 2 tab Tamsulosin HCl (Flomax -) 0.4 mg PO DAILY@0830 [facility] Last Admin: 08/19/16 09:33 Dose: 0.4 mg A/P Acute on Chronic Hypoxic and Hypercapneic Respiratory Failure Acute on Chronic Diastolic Heart Failure Pleural Effusion Acute on Chronic Renal Failure Atelectasis Atrial fibrillation CAD s/p stents COPD HTN Hyperlipidemia h/o PE/DVT h/o GI Bleed - mucolytics, chest PT, bed percussion - position right side down - BiPAP - O2 to keep SPo2 >90% - continue lasix - monitor urine output, creatinine - replete lytes - monitor CXR - prednisone taper - inhaled bronchodilators - rate controlled - continue anticoagulation - continue ICU monitoring for tenuous respiratory status critical care time spent in reviewing chart, evaluating patient and formulating plan 38 min
[2016-08-19] MEDS: ERTAPENEM SODIUM 1 GM in SODIUM CHLORIDE 50 ML IVPB SCH (10:45)
[2016-08-19] MEDS: POLYETHYLENE GLYCOL 3350 119 GM BTL PO SCH (10:58)
--- NOTE | 2016-08-19 12:23 | PN ---
Progress Note (short form) - Note Progress Note: Subjective: The patient was seen and examined at the bedside he reports he is feeling good. He is refusing to sit in the chair and is refusing BGM fingersticks Current Medications Generic Name Dose Route Start Last Admin Trade Name Freq PRN Reason Stop Dose Admin Acetaminophen 650 mg 08/14/16 17:14 08/15/16 21:35 Tylenol - PO 650 mg Q6H PRN Administration PAIN Acetylcysteine 600 mg 08/16/16 12:30 08/19/16 11:25 Mucomyst 20 Oral / Inh Use Only* NEB 600 mg QIDR [facility] Administration Albuterol Sulfate 1 amp 08/17/16 18:00 08/19/16 11:25 Ventolin 0.083% Nebulizer Soln - NEB 1 amp QIDR [facility] Administration Amlodipine Besylate 10 mg 08/15/16 10:00 08/19/16 09:34 Norvasc - PO 10 mg DAILY [facility] Administration Apixaban 2.5 mg 08/14/16 22:00 08/19/16 09:35 Eliquis - PO 2.5 mg BID [facility] Administration Aspirin 81 mg 08/15/16 10:00 08/19/16 09:35 Ecotrin - PO 81 mg DAILY [facility] Administration Atorvastatin Calcium 20 mg 08/14/16 22:00 08/18/16 21:14 Lipitor - PO 20 mg HS [facility] Administration Bupropion HCl 150 mg 08/15/16 10:00 08/19/16 09:32 Wellbutrin Xl - PO 150 mg DAILY [facility] Administration Chlorhexidine Gluconate 1 applic 08/14/16 22:00 08/18/16 21:15 Hibiclens For Decolonization - TP 1 applic HS [facility] Administration Clindamycin HCl 300 mg 08/15/16 00:00 08/19/16 06:55 Cleocin - PO 300 mg Q6HPO [facility] Administration Docusate Sodium 100 mg 08/14/16 22:00 08/19/16 09:36 Colace - PO 100 mg BID [facility] Administration Duloxetine HCl 60 mg 08/15/16 10:00 08/19/16 09:34 Cymbalta - PO 60 mg DAILY [facility] Administration Emollient Ointment 1 applic 08/14/16 22:00 08/19/16 09:33 Aquaphor - TP 1 applic BID [facility] Administration Epoetin Keith 10,000 unit 08/16/16 10:00 08/18/16 19:34 Procrit - SQ 10,000 unit MoWeFr@1000 [facility] Administration Ferrous Sulfate 325 mg 08/14/16 22:00 08/19/16 09:31 Feosol - PO 325 mg BID [facility] Administration Furosemide 80 mg 08/16/16 14:00 08/19/16 06:55 Lasix Injection - IVPUSH 80 mg BID@0600,1400 [facility] Administration Guaifenesin 10 ml 08/14/16 17:14 08/15/16 10:28 Robitussin Dm - PO 10 ml Q6H PRN Administration COUGH Ertapenem 1 gm/ Sodium 50 mls @ 100 mls/hr 08/15/16 18:15 08/19/16 10:45 Chloride IVPB 100 mls/hr DAILY [facility] Administration Protocol Metoprolol Tartrate 25 mg 08/14/16 22:00 08/19/16 09:32 Lopressor - PO 25 mg BID [facility] Administration Nystatin 1 applic 08/15/16 10:00 08/19/16 09:34 Nystop Powder - TP 1 applic DAILY [facility] Administration Pantoprazole Sodium 40 mg 08/15/16 10:00 08/19/16 09:34 Protonix - PO 40 mg DAILY [facility] Administration Polyethylene Glycol 17 gm 08/14/16 15:15 08/19/16 10:58 Miralax (For Daily Use) - PO Not Given DAILY [facility] Prednisone 40 mg 08/15/16 10:00 08/19/16 09:33 Deltasone - PO 40 mg DAILY [facility] Administration Senna 2 tab 08/15/16 10:00 08/19/16 09:30 Senna - PO 2 tab DAILY [facility] Administration Tamsulosin HCl 0.4 mg 08/15/16 08:30 08/19/16 09:33 Flomax - PO 0.4 mg DAILY@0830 [facility] Administration Objective: Vital Signs Period Temp Pulse Resp BP Sys/[place] Pulse Ox Last 24 Hr 97.4 F-97.8 F 58-86 19-26 110-129/58-73 97-99 Physical Exam: General: NAD, A&Ox3 Lungs: Decreased breath sounds on the left Heart: RRR, S1S2 Abd: Soft, non-tender, non-distended. Normoactive bowel sounds Ext: B/l lower extremity edema. Chronic venous stasis changes CBCD WBC 10.9 K/mm3 (4.0-10.0) H 08/19/16 05:30 RBC 2.73 M/mm3 (4.00-5.60) L 08/19/16 05:30 Hgb 7.8 GM/dL (11.7-16.9) L 08/19/16 05:30 Hct 23.8 % (35.4-49) L 08/19/16 05:30 MCV 87.2 fl (80-96) 08/19/16 05:30 MCHC 32.8 g/dl (32.0-35.9) 08/19/16 05:30 RDW 17.0 % (11.9-15.9) H 08/19/16 05:30 Plt Count 230 K/MM3 (134-434) 08/19/16 05:30 MPV 7.3 fl (7.5-11.1) L 08/19/16 05:30 CMP Sodium 144 mmol/L (136-145) 08/19/16 05:30 Potassium 3.4 mmol/L (3.5-5.1) L 08/19/16 05:30 Chloride 95 mmol/L (98-107) L 08/19/16 05:30 Carbon Dioxide 36 mmol/L (21-32) H 08/19/16 05:30 Anion Gap 13 (8-16) 08/19/16 05:30 BUN 64 mg/dL (7-18) H 08/19/16 05:30 Creatinine 1.9 mg/dL (0.7-1.3) H 08/19/16 05:30 Creat Clearance w eGFR 34.92 (>60) 08/19/16 05:30 Random Glucose 78 mg/dL (74-106) 08/19/16 05:30 Calcium 8.1 mg/dL (8.5-10.1) L 08/19/16 05:30 Total Bilirubin 0.5 mg/dL (0.2-1.0) D 08/19/16 05:30 AST 10 U/L (15-37) L 08/19/16 05:30 ALT 11 U/L (12-78) L 08/19/16 05:30 Alkaline Phosphatase 58 U/L (45-117) 08/19/16 05:30 Total Protein 5.0 g/dl (6.4-8.2) L 08/19/16 05:30 Albumin 2.3 g/dl (3.4-5.0) L 08/19/16 05:30 CARDIAC ENZYMES Creatine Kinase 26 IU/L (39-308) L 08/11/16 23:00 Troponin I < 0.02 ng/ml (0.00-0.05) 08/11/16 23:00 Microbiology 08/12/16 06:00 Nasopharyngeal Swab Respiratory Virus (PCR) - Final 08/11/16 18:20 Blood - Peripheral Venous Blood Culture - Final NO GROWTH AFTER 5 DAYS INCUBATION 08/11/16 18:20 Blood - Peripheral Venous Blood Culture - Final NO GROWTH AFTER 5 DAYS INCUBATION 08/12/16 06:00 Sputum - Expectorated Gram Stain - Final 08/12/16 06:00 Sputum - Expectorated Sputum Culture - Final NORMAL RESPIRATORY FAWN 08/12/16 00:00 Pleural Fluid Gram Stain - Final 08/12/16 00:00 Pleural Fluid Body Fluid Culture - Final NO GROWTH OF AEROBIC ORGANISMS AFTER 48 HOURS INCUBATION 08/12/16 00:00 Pleural Fluid Anaerobic Culture - Final NO ANAEROBES WERE ISOLATED 08/11/16 16:55 Urine - Urine - Catheterized Urine Culture - Final NO GROWTH OBTAINED 08/12/16 12:00 Urine - Urine Clifford Legionella Antigen - Final 08/12/16 12:00 Urine - Urine Clifford Streptococcus pneumoniae Antigen (M - Final Assessment: This is a 75 year old male with PMHx of HTN, hyperlipidemia, CAD s/ p stenting x2 (2014), diastolic heart failure, a.fib, COPD, respiratory failure requiring intubation (02/2016-04/2016), GI bleed, h/o DVT and PE who presented from the SN[facility] for shortness of breath. Plan: 1) Pulmonary: Acute on chronic hypoxic and hypercapnic respiratory failure, pleural effusions, Acute COPD exacerbation - Chest CT atelectasis of the left lung with moderate pleural effusion. Moderate right pleural effusion with lower lobe atelectasis - Chest X-ray today with progressive fluid and infiltrate on the left. There is also progressive changes at the right base - NIPPV at night and PRN - Continue Prednisone 40mg po daily - Mucomyst meds qid - Albuterol nebs qid - Chest PT bid - Bed percussion - Encourage coughing and deep breathing - Incentive spirometry - Appreciate pulmonary consult B/l pleural effusions 2) ID: pneumonia - Continue Clindamycin (08/12- ) - Continue Ertapenem (08/15- ), has been on carbapenem since 08/11 - WBC trending down - Appreciate ID consult 3) Cardiology: Acute on chronic combined systolic and diastolic heart failure - Echo 05/2016 showed normal LV systolic function, no sig valvular abnl - Continue Lasix 80mg IVP bid - Monitor Chest x-rays - Appreciate cardiology consult CAD s/p PCI 03/2015, 04/2015 - Continue ASA - Continue Lipitor - Continue Lopressor DVT LLE - Continue Eliquis (renally dosed) 4) : KARLOS on CKD - Cr 1.9 ~ baseline - Continue to monitor 5) F/E/N: - Monitor electrolytes - Diabetic/low sodium diet 6) Prophylaxis: - On Eliquis 7) Dispo: - Requires continued ICU care CODE STATUS: FULL CODE Visit type - Emergency Visit Emergency Visit: Yes ED Registration Date: 08/11/16 Care time: The patient presented to the Emergency Department on the above date and was hospitalized for further evaluation of their emergent condition. - New Patient This patient is new to me today: No - Critical Care Critical Care patient: Yes Total Critical Care Time (in minutes): 45 Critical Care Statement: The care of this patient involved high complexity decision making to prevent further life threatening deterioration of the patient 's condition and/or to evalute & treat vital organ system(s) failure or risk of failure.
--- NOTE | 2016-08-19 17:16 | PN ---
Progress Note, Physician History of Present Illness: patient doing well no complaints on ventimask in room - Current Medication List Current Medications: Active Medications Acetaminophen (Tylenol -) 650 mg PO Q6H PRN PRN Reason: PAIN Last Admin: 08/15/16 21:35 Dose: 650 mg Acetylcysteine (Mucomyst 20 Oral / Inh Use Only*) [address] [facility] Last Admin: 08/19/16 11:25 Dose: 600 mg Albuterol Sulfate (Ventolin 0.083% Nebulizer Soln -) [address] [facility] Last Admin: 08/19/16 11:25 Dose: 1 amp Amlodipine Besylate (Norvasc -) [address] [facility] Last Admin: 08/19/16 09:34 Dose: 10 mg Apixaban (Eliquis -) 2.[address] [facility] Last Admin: 08/19/16 09:35 Dose: 2.5 mg Aspirin (Ecotrin -) [address] [facility] Last Admin: 08/19/16 09:35 Dose: 81 mg Atorvastatin Calcium (Lipitor -) [address] [facility] Last Admin: 08/18/16 21:14 Dose: 20 mg Bupropion HCl (Wellbutrin Xl -) [address] [facility] Last Admin: 08/19/16 09:32 Dose: 150 mg Chlorhexidine Gluconate (Hibiclens For Decolonization -) [address] [facility] Last Admin: 08/18/16 21:15 Dose: 1 applic Clindamycin HCl (Cleocin -) [address] [facility] Last Admin: 08/19/16 15:07 Dose: 300 mg Docusate Sodium (Colace -) [address] [facility] Last Admin: 08/19/16 09:36 Dose: 100 mg Duloxetine HCl (Cymbalta -) [address] [facility] Last Admin: 08/19/16 09:34 Dose: 60 mg Emollient Ointment (Aquaphor -) [address] [facility] Last Admin: 08/19/16 09:33 Dose: 1 applic Epoetin Keith (Procrit -) 10,000 unit SQ MoWeFr@1000 [facility] Last Admin: 08/18/16 19:34 Dose: 10,000 unit Ferrous Sulfate (Feosol -) [address] [facility] Last Admin: 08/19/16 09:31 Dose: 325 mg Furosemide (Lasix Injection -) 80 mg IVPUSH BID@0600,1400 [facility] Last Admin: 08/19/16 15:06 Dose: 80 mg Guaifenesin (Robitussin Dm -) 10 ml PO Q6H PRN PRN Reason: COUGH Last Admin: 08/15/16 10:28 Dose: 10 ml Ertapenem 1 gm/ Sodium (Chloride) 50 mls @ 100 mls/hr IVPB DAILY [facility] PRN Reason: Protocol Last Admin: 08/19/16 10:45 Dose: 100 mls/hr Metoprolol Tartrate (Lopressor -) [address] [facility] Last Admin: 08/19/16 09:32 Dose: 25 mg Nystatin (Nystop Powder -) [address] [facility] Last Admin: 08/19/16 09:34 Dose: 1 applic Pantoprazole Sodium (Protonix -) [address] [facility] Last Admin: 08/19/16 09:34 Dose: 40 mg Polyethylene Glycol (Miralax (For Daily Use) -) [address] [facility] Last Admin: 08/19/16 10:58 Dose: Not Given Prednisone (Deltasone -) [address] [facility] Last Admin: 08/19/16 09:33 Dose: 40 mg Senna (Senna -) [address] [facility] Last Admin: 08/19/16 09:30 Dose: 2 tab Tamsulosin HCl (Flomax -) 0.4 mg PO DAILY@0830 [facility] Last Admin: 08/19/16 09:33 Dose: 0.4 mg - Objective Vital Signs: Vital Signs Temperature 96.6 F L 08/19/16 16:00 Pulse Rate 62 08/19/16 16:00 Respiratory Rate 20 08/19/16 16:00 Blood Pressure 114/59 08/19/16 16:00 O2 Sat by Pulse Oximetry (%) 99 08/19/16 10:47 Constitutional: Yes: No Distress, Calm Cardiovascular: Yes: S1, S2 Respiratory: Yes: On Venti-Mask, Poor Air Entry, Other Gastrointestinal: Yes: Normal Bowel Sounds, Soft Musculoskeletal: Yes: Other Extremities: Yes: Other Edema: LLE: Trace, RLE: Trace Integumentary: Yes: Erythema (improving) Neurological: Yes: Alert, Oriented Psychiatric: Yes: Alert, Oriented Labs: CBC, BMP 08/19/16 05:30 08/19/16 05:30 INR, PTT INR 1.15 (0.82-1.09) H 08/16/16 08:27 Assessment/Plan Problem List - Problems (1) Acute and chronic respiratory failure with hypoxia Code(s): J96.21 - ACUTE AND CHRONIC RESPIRATORY FAILURE WITH HYPOXIA (2) Pneumonia Code(s): J18.9 - PNEUMONIA, UNSPECIFIED ORGANISM Qualifiers: Pneumonia type: due to unspecified organism Laterality: left Lung location: lower lobe of lung Qualified Code(s): J18.1 - Lobar pneumonia, unspecified organism (3) Pleural effusion Code(s): J90 - PLEURAL EFFUSION, NOT ELSEWHERE CLASSIFIED (4) Acute on chronic diastolic (congestive) heart failure Code(s): I50.33 - ACUTE ON CHRONIC DIASTOLIC (CONGESTIVE) HEART FAILURE (5) COPD (chronic obstructive pulmonary disease) Code(s): J44.9 - CHRONIC OBSTRUCTIVE PULMONARY DISEASE, UNSPECIFIED (6) Renal failure (ARF), acute on chronic Code(s): N17.9 - ACUTE KIDNEY FAILURE, UNSPECIFIED N18.9 - CHRONIC KIDNEY DISEASE, UNSPECIFIED (7) Diabetes Code(s): E11.9 - TYPE 2 DIABETES MELLITUS WITHOUT COMPLICATIONS Qualifiers: Diabetes mellitus type: type 2 Diabetes mellitus complication status: with kidney complications Diabetes mellitus complication detail: with chronic kidney disease (8) Atrial fibrillation Code(s): I48.91 - UNSPECIFIED ATRIAL FIBRILLATION 9 bilateral cellulitis of the legs legs--rt looks better ,left still with erythema plan continue abx will deescalate ertapenam by katina if the lt leg resolves resp support incentive igor physio cc time 40 min
[2016-08-19] MEDS: ATORVASTATIN CA 20 MG TABLET (FP) PO SCH (22:39)
[2016-08-19] MEDS: CHLORHEXIDINE GLUCONATE 4% CLEANSER FOR DECOLONIZATION TP SCH (22:40)
[2016-08-20] MEDS: CLINDAMYCIN HCL 150 MG CAPSULE (FP) PO SCH ×5 (00:33→23:32)
[2016-08-20] MEDS ORDERED: ALBUTEROL SO4 0.083% IH SOL 2.5 MG/3 ML VIAL.NEB. NEB ONE (02:44)
[2016-08-20] MEDS: ACETYLCYSTEINE 20% 200MG/ML 4 ML VIAL *FOR ORAL / INH USE ONLY NEB SCH ×5 (06:00→23:15)
[2016-08-20] MEDS: ALBUTEROL SO4 0.083% IH SOL 2.5 MG/3 ML VIAL.NEB. NEB SCH ×5 (06:00→23:16)
[2016-08-20 06:08] LABS: BASOPHIL 0.3 % (0-2.0); EOSINOPHIL 0.1 % (0-4.5); MCH 28.6 pg (25.7-33.7); MCHC 32.4 g/dl (32.0-35.9); MEAN CELL VOLUME 88.1 fl (80-96); MEAN PLT VOLUME 7.4 fl (7.5-11.1); NEUTROPHILS 89.7 % (42.8-82.8); PLATELET COUNT 238 K/MM3 (134-434); RDW 16.5 % (11.9-15.9); WHITE BLOOD COUNT 8.5 K/mm3 (4.0-10.0)
[2016-08-20] MEDS: FUROSEMIDE 40 MG/4 ML INJECTABLE VIAL IVPUSH SCH ×2 (06:15→13:53)
[2016-08-20 06:33] LABS: ALBUMIN 2.3 g/dl (3.4-5.0); BILIRUBIN,TOTAL 0.4 mg/dL (0.2-1.0); CALCIUM 7.9 mg/dL (8.5-10.1); COCKROFT - GAULT 54.1; CREATININE 1.7 mg/dL (0.7-1.3); MAGNESIUM 2.8 mg/dL (1.8-2.4); PHOSPHOROUS 4.4 mg/dL (2.5-4.9); TOT PROT 5.1 g/dl (6.4-8.2)
[2016-08-20] MEDS ORDERED: PT OWN MED DRAWER 7, Y5N ONE ×4 (08:16→23:23)
--- NOTE | 2016-08-20 08:18 | PN ---
Progress Note, Physician Chief Complaint: alert, no new complaints TELE: NSR - Current Medication List Current Medications: Active Medications Acetaminophen (Tylenol -) 650 mg PO Q6H PRN PRN Reason: PAIN Last Admin: 08/15/16 21:35 Dose: 650 mg Acetylcysteine (Mucomyst 20 Oral / Inh Use Only*) 600 mg NEB QIDR [facility] Last Admin: 08/20/16 06:00 Dose: 600 mg Albuterol Sulfate (Ventolin 0.083% Nebulizer Soln -) 1 amp NEB QIDR [facility] Last Admin: 08/20/16 06:00 Dose: 1 amp Amlodipine Besylate (Norvasc -) 10 mg PO DAILY [facility] Last Admin: 08/19/16 09:34 Dose: 10 mg Apixaban (Eliquis -) 2.5 mg PO BID [facility] Last Admin: 08/19/16 22:39 Dose: 2.5 mg Aspirin (Ecotrin -) 81 mg PO DAILY [facility] Last Admin: 08/19/16 09:35 Dose: 81 mg Atorvastatin Calcium (Lipitor -) 20 mg PO HS [facility] Last Admin: 08/19/16 22:39 Dose: 20 mg Bupropion HCl (Wellbutrin Xl -) 150 mg PO DAILY [facility] Last Admin: 08/19/16 09:32 Dose: 150 mg Chlorhexidine Gluconate (Hibiclens For Decolonization -) 1 applic TP HS [facility] Last Admin: 08/19/16 22:40 Dose: 1 applic Clindamycin HCl (Cleocin -) 300 mg PO Q6HPO [facility] Last Admin: 08/20/16 06:15 Dose: 300 mg Docusate Sodium (Colace -) 100 mg PO BID [facility] Last Admin: 08/19/16 22:39 Dose: 100 mg Duloxetine HCl (Cymbalta -) 60 mg PO DAILY [facility] Last Admin: 08/19/16 09:34 Dose: 60 mg Emollient Ointment (Aquaphor -) 1 applic TP BID [facility] Last Admin: 08/19/16 22:40 Dose: 1 applic Epoetin Keith (Procrit -) 10,000 unit SQ MoWeFr@1000 [facility] Last Admin: 08/18/16 19:34 Dose: 10,000 unit Ferrous Sulfate (Feosol -) 325 mg PO BID [facility] Last Admin: 08/19/16 22:39 Dose: 325 mg Furosemide (Lasix Injection -) 80 mg IVPUSH BID@0600,1400 [facility] Last Admin: 08/20/16 06:15 Dose: 80 mg Guaifenesin (Robitussin Dm -) 10 ml PO Q6H PRN PRN Reason: COUGH Last Admin: 08/15/16 10:28 Dose: 10 ml Ertapenem 1 gm/ Sodium (Chloride) 50 mls @ 100 mls/hr IVPB DAILY [facility] PRN Reason: Protocol Last Admin: 08/19/16 10:45 Dose: 100 mls/hr Metoprolol Tartrate (Lopressor -) 25 mg PO BID [facility] Last Admin: 08/19/16 22:39 Dose: 25 mg Nystatin (Nystop Powder -) 1 applic TP DAILY [facility] Last Admin: 08/19/16 09:34 Dose: 1 applic Pantoprazole Sodium (Protonix -) 40 mg PO DAILY [facility] Last Admin: 08/19/16 09:34 Dose: 40 mg Polyethylene Glycol (Miralax (For Daily Use) -) 17 gm PO DAILY [facility] Last Admin: 08/19/16 10:58 Dose: Not Given Prednisone (Deltasone -) 40 mg PO DAILY [facility] Last Admin: 08/19/16 09:33 Dose: 40 mg Senna (Senna -) 2 tab PO DAILY [facility] Last Admin: 08/19/16 09:30 Dose: 2 tab Tamsulosin HCl (Flomax -) 0.4 mg PO DAILY@0830 [facility] Last Admin: 08/19/16 09:33 Dose: 0.4 mg - Objective Vital Signs: Vital Signs Temperature 97.6 F 08/20/16 06:00 Pulse Rate 60 08/20/16 06:00 Respiratory Rate 25 H 08/20/16 06:00 Blood Pressure 116/55 08/20/16 06:00 O2 Sat by Pulse Oximetry (%) 100 08/20/16 08:05 Constitutional: Yes: Calm Cardiovascular: Yes: Regular Rate and Rhythm Respiratory: Yes: Other (decreased breath sounds left. No wheezing) Gastrointestinal: Yes: Soft, Abdomen, Obese Edema: Yes Edema: LLE: 1+, RLE: 1+ Neurological: Yes: Alert Labs: CBC, BMP 08/20/16 05:10 08/20/16 05:10 INR, PTT INR 1.15 (0.82-1.09) H 08/16/16 08:27 Laboratory Tests 08/20/16 08/20/16 05:10 05:10 WBC 8.5 Hgb 7.9 L Plt Count 238 Sodium 143 Potassium 3.7 Anion Gap 12 Creatinine 1.7 H Calcium 7.9 L Phosphorus 4.4 Magnesium 2.8 H - ....Imaging EKG: Image Reviewed Assessment/Plan Assessment/Plan 75 year old man with a history of HTN, COPD on home O2, Chronic combined systolic/diastolic CHF, CKD, JOY, CAD moderate LV systolic dysfunction, cardiac cath 03/2015 showed 2VD with RCA and LAD disease s/p PCI with ABDON of RCA 2014 and staged PCI of LAD in 04/2015 with significant improvement in symptoms for some time, followed by multiple admissions for respiratory failure, sepsis, KARLOS, has been in [place], recently tx for presumed PNA, admitted with sob and recurrent pleural effusions. SOB-multifactorial, PNA, AE COPD, pleural effusions, acute on chronic combined systolic/diastolic CHF -Contine Bipap and IV Lasix, creatinine improving with diuresis -last echo 05/2016 showed normal LV systolic function, no sig valvular abnl -Abx as per ID CAD-PCI with ABDON of RCA 03/2015 and staged PCI of LAD in 04/2015 -echo as above -cont ASA -cont lipitor -cont metoprolol DVT-LLE -on eliquis adjusted for renal fxn
[2016-08-20] MEDS: predniSONE 20 MG TABLET (UD) PO SCH (09:47)
[2016-08-20] MEDS: METOPROLOL TARTRATE 25 MG TABLET (FP) PO SCH ×2 (09:47→23:32)
[2016-08-20] MEDS: PANTOPRAZOLE 40 MG TABLET (FP) PO SCH (09:47)
[2016-08-20] MEDS: MINERAL OIL/PET HY-PHL TOPICAL OINTMENT 454 GM JAR TP SCH ×2 (09:48→23:31)
[2016-08-20] MEDS: amLODIPine BESYLATE 10 MG TABLET (FP) PO SCH (09:48)
[2016-08-20] MEDS: TAMSULOSIN HCL 0.4 MG CAP.ER.24H (FP) PO SCH (09:48)
[2016-08-20] MEDS: APIXABAN 2.5 MG TABLET PO SCH ×2 (09:48→23:32)
[2016-08-20] MEDS: NYSTATIN POWDER 100,000 UNITS/GM - 15 GM TOPICAL POWDER TP SCH (09:49)
[2016-08-20] MEDS: FERROUS SO4 325 MG TABLET (FP) PO SCH ×2 (09:49→23:32)
[2016-08-20] MEDS: SENNOSIDES 8.6MG TABLET (FP) PO SCH (09:49)
[2016-08-20] MEDS: ASPIRIN COATED 81 MG TABLET.EC PO SCH (09:49)
[2016-08-20] MEDS: POLYETHYLENE GLYCOL 3350 119 GM BTL PO SCH (09:50)
[2016-08-20] MEDS: ERTAPENEM SODIUM 1 GM in SODIUM CHLORIDE 50 ML IVPB SCH (09:51)
[2016-08-20] MEDS: guaiFENesin/D-METHORPHAN HB 10 ML UNIT-DOSE CUPS PO PRN (09:52)
--- NOTE | 2016-08-20 10:26 | PN ---
Progress Note (short form) - Note Progress Note: PULMONARY/CCM Pt seen and examined in the ICU. On NRB saturating low 90s. Still with cough and wheezing. Last Vital Signs Temp Pulse Resp BP Pulse Ox 97.6 F 60 25 H 116/55 100 08/20/16 06:00 08/20/16 06:00 08/20/16 06:00 08/20/16 06:00 08/20/16 08:05 Intake & Output 08/17/16 08/18/16 08/19/16 08/20/16 23:59 23:59 23:59 23:59 Intake Total 940 130 840 110 Output Total 1800 1450 2200 350 Balance -860 -1320 -1360 -240 Weight 215 lb 8 oz 217 lb 217 lb 14.4 oz 217 lb Gen: tachypneic at rest Heart: RRR Lung: decreased breath sounds left base, scattered rhonchi Abd: soft, nontender Ext: no edema, chronic changes CBC, BMP 08/20/16 05:10 08/20/16 05:10 Active Medications Acetaminophen (Tylenol -) 650 mg PO Q6H PRN PRN Reason: PAIN Last Admin: 08/15/16 21:35 Dose: 650 mg Acetylcysteine (Mucomyst 20 Oral / Inh Use Only*) 600 mg NEB QIDR [facility] Last Admin: 08/20/16 06:00 Dose: 600 mg Albuterol Sulfate (Ventolin 0.083% Nebulizer Soln -) 1 amp NEB QIDR [facility] Last Admin: 08/20/16 06:00 Dose: 1 amp Amlodipine Besylate (Norvasc -) 10 mg PO DAILY [facility] Last Admin: 08/20/16 09:48 Dose: 10 mg Apixaban (Eliquis -) 2.5 mg PO BID [facility] Last Admin: 08/20/16 09:48 Dose: 2.5 mg Aspirin (Ecotrin -) 81 mg PO DAILY [facility] Last Admin: 08/20/16 09:49 Dose: 81 mg Atorvastatin Calcium (Lipitor -) 20 mg PO HS [facility] Last Admin: 08/19/16 22:39 Dose: 20 mg Bupropion HCl (Wellbutrin Xl -) 150 mg PO DAILY [facility] Last Admin: 08/20/16 09:47 Dose: 150 mg Chlorhexidine Gluconate (Hibiclens For Decolonization -) 1 applic TP [facility] Last Admin: 08/19/16 22:40 Dose: 1 applic Clindamycin HCl (Cleocin -) 300 mg PO Q6HPO [facility] Last Admin: 08/20/16 06:15 Dose: 300 mg Docusate Sodium (Colace -) 100 mg PO BID [facility] Last Admin: 08/19/16 22:39 Dose: 100 mg Duloxetine HCl (Cymbalta -) 60 mg PO DAILY [facility] Last Admin: 08/19/16 09:34 Dose: 60 mg Emollient Ointment (Aquaphor -) 1 applic TP BID [facility] Last Admin: 08/20/16 09:48 Dose: 1 applic Epoetin Keith (Procrit -) 10,000 unit SQ MoWeFr@1000 [facility] Last Admin: 08/18/16 19:34 Dose: 10,000 unit Ferrous Sulfate (Feosol -) 325 mg PO BID [facility] Last Admin: 08/20/16 09:49 Dose: 325 mg Furosemide (Lasix Injection -) 80 mg IVPUSH BID@0600,1400 [facility] Last Admin: 08/20/16 06:15 Dose: 80 mg Guaifenesin (Robitussin Dm -) 10 ml PO Q6H PRN PRN Reason: COUGH Last Admin: 08/20/16 09:52 Dose: 10 ml Ertapenem 1 gm/ Sodium (Chloride) 50 mls @ 100 mls/hr IVPB DAILY [facility] PRN Reason: Protocol Last Admin: 08/20/16 09:51 Dose: 100 mls/hr Metoprolol Tartrate (Lopressor -) 25 mg PO BID [facility] Last Admin: 08/20/16 09:47 Dose: 25 mg Nystatin (Nystop Powder -) 1 applic TP DAILY [facility] Last Admin: 08/20/16 09:49 Dose: 1 applic Pantoprazole Sodium (Protonix -) 40 mg PO DAILY [facility] Last Admin: 08/20/16 09:47 Dose: 40 mg Polyethylene Glycol (Miralax (For Daily Use) -) 17 gm PO DAILY [facility] Last Admin: 08/20/16 09:50 Dose: Not Given Prednisone (Deltasone -) 40 mg PO DAILY [facility] Last Admin: 08/20/16 09:47 Dose: 40 mg Senna (Senna -) 2 tab PO DAILY [facility] Last Admin: 08/20/16 09:49 Dose: 2 tab Tamsulosin HCl (Flomax -) 0.4 mg PO DAILY@0830 [facility] Last Admin: 08/20/16 09:48 Dose: 0.4 mg A/P Acute on Chronic Hypoxic and Hypercapneic Respiratory Failure Acute on Chronic Diastolic Heart Failure Pleural Effusion Acute on Chronic Renal Failure Atelectasis Atrial Fibrillation CAD s/p stents COPD HTN Hyperlipidemia h/o PE/DVT h/o GI Bleed - mucolytics, chest PT, bed percussion - position right side down - BiPAP - O2 to keep SPo2 >90% - continue lasix - monitor urine output, creatinine - replete lytes - monitor CXR - prednisone taper - inhaled bronchodilators - rate controlled - continue anticoagulation - continue ICU monitoring for tenuous respiratory status critical care time spent in reviewing chart, evaluating patient and formulating plan 35 min
--- NOTE | 2016-08-20 13:13 | PN ---
Progress Note, Physician History of Present Illness: patient doing well no complaints - Current Medication List Current Medications: Active Medications Acetaminophen (Tylenol -) 650 mg PO Q6H PRN PRN Reason: PAIN Last Admin: 08/15/16 21:35 Dose: 650 mg Acetylcysteine (Mucomyst 20 Oral / Inh Use Only*) 600 mg NEB QIDR [facility] Last Admin: 08/20/16 11:35 Dose: 600 mg Albuterol Sulfate (Ventolin 0.083% Nebulizer Soln -) 1 amp NEB QIDR [facility] Last Admin: 08/20/16 11:35 Dose: 1 amp Amlodipine Besylate (Norvasc -) 10 mg PO DAILY [facility] Last Admin: 08/20/16 09:48 Dose: 10 mg Apixaban (Eliquis -) 2.5 mg PO BID [facility] Last Admin: 08/20/16 09:48 Dose: 2.5 mg Aspirin (Ecotrin -) 81 mg PO DAILY [facility] Last Admin: 08/20/16 09:49 Dose: 81 mg Atorvastatin Calcium (Lipitor -) 20 mg PO [facility] Last Admin: 08/19/16 22:39 Dose: 20 mg Bupropion HCl (Wellbutrin Xl -) 150 mg PO DAILY [facility] Last Admin: 08/20/16 09:47 Dose: 150 mg Chlorhexidine Gluconate (Hibiclens For Decolonization -) 1 applic TP [facility] Last Admin: 08/19/16 22:40 Dose: 1 applic Clindamycin HCl (Cleocin -) 300 mg PO Q6HPO [facility] Last Admin: 08/20/16 06:15 Dose: 300 mg Docusate Sodium (Colace -) 100 mg PO BID [facility] Last Admin: 08/19/16 22:39 Dose: 100 mg Duloxetine HCl (Cymbalta -) 60 mg PO DAILY [facility] Last Admin: 08/19/16 09:34 Dose: 60 mg Emollient Ointment (Aquaphor -) 1 applic TP BID [facility] Last Admin: 08/20/16 09:48 Dose: 1 applic Epoetin Keith (Procrit -) 10,000 unit SQ MoWeFr@1000 [facility] Last Admin: 08/18/16 19:34 Dose: 10,000 unit Ferrous Sulfate (Feosol -) 325 mg PO BID [facility] Last Admin: 08/20/16 09:49 Dose: 325 mg Furosemide (Lasix Injection -) 80 mg IVPUSH BID@0600,1400 [facility] Last Admin: 08/20/16 06:15 Dose: 80 mg Guaifenesin (Robitussin Dm -) 10 ml PO Q6H PRN PRN Reason: COUGH Last Admin: 08/20/16 09:52 Dose: 10 ml Ertapenem 1 gm/ Sodium (Chloride) 50 mls @ 100 mls/hr IVPB DAILY [facility] PRN Reason: Protocol Last Admin: 08/20/16 09:51 Dose: 100 mls/hr Metoprolol Tartrate (Lopressor -) 25 mg PO BID [facility] Last Admin: 08/20/16 09:47 Dose: 25 mg Nystatin (Nystop Powder -) 1 applic TP DAILY [facility] Last Admin: 08/20/16 09:49 Dose: 1 applic Pantoprazole Sodium (Protonix -) 40 mg PO DAILY [facility] Last Admin: 08/20/16 09:47 Dose: 40 mg Polyethylene Glycol (Miralax (For Daily Use) -) 17 gm PO DAILY [facility] Last Admin: 08/20/16 09:50 Dose: Not Given Prednisone (Deltasone -) 40 mg PO DAILY [facility] Last Admin: 08/20/16 09:47 Dose: 40 mg Senna (Senna -) 2 tab PO DAILY [facility] Last Admin: 08/20/16 09:49 Dose: 2 tab Tamsulosin HCl (Flomax -) 0.4 mg PO DAILY@0830 [facility] Last Admin: 08/20/16 09:48 Dose: 0.4 mg - Objective Vital Signs: Vital Signs Temperature 97.6 F 08/20/16 06:00 Pulse Rate 61 08/20/16 11:30 Respiratory Rate 25 H 08/20/16 09:00 Blood Pressure 116/55 08/20/16 06:00 O2 Sat by Pulse Oximetry (%) 97 08/20/16 11:30 Constitutional: Yes: No Distress, Calm Cardiovascular: Yes: S1, S2 Respiratory: Yes: On Nasal O2, On Venti-Mask, Poor Air Entry Gastrointestinal: Yes: Normal Bowel Sounds, Soft Musculoskeletal: Yes: Other Extremities: Yes: Erythema Neurological: Yes: Alert, Oriented Psychiatric: Yes: Alert, Oriented Labs: CBC, BMP 08/20/16 05:10 08/20/16 05:10 INR, PTT INR 1.15 (0.82-1.09) H 08/16/16 08:27 - ....Imaging Chest X-ray: Report Reviewed, Image Reviewed Assessment/Plan Problem List - Problems (1) Acute and chronic respiratory failure with hypoxia Code(s): J96.21 - ACUTE AND CHRONIC RESPIRATORY FAILURE WITH HYPOXIA (2) Pneumonia Code(s): J18.9 - PNEUMONIA, UNSPECIFIED ORGANISM Qualifiers: Pneumonia type: due to unspecified organism Laterality: left Lung location: lower lobe of lung Qualified Code(s): J18.1 - Lobar pneumonia, unspecified organism (3) Pleural effusion Code(s): J90 - PLEURAL EFFUSION, NOT ELSEWHERE CLASSIFIED (4) Acute on chronic diastolic (congestive) heart failure Code(s): I50.33 - ACUTE ON CHRONIC DIASTOLIC (CONGESTIVE) HEART FAILURE (5) COPD (chronic obstructive pulmonary disease) Code(s): J44.9 - CHRONIC OBSTRUCTIVE PULMONARY DISEASE, UNSPECIFIED (6) Renal failure (ARF), acute on chronic Code(s): N17.9 - ACUTE KIDNEY FAILURE, UNSPECIFIED N18.9 - CHRONIC KIDNEY DISEASE, UNSPECIFIED (7) Diabetes Code(s): E11.9 - TYPE 2 DIABETES MELLITUS WITHOUT COMPLICATIONS Qualifiers: Diabetes mellitus type: type 2 Diabetes mellitus complication status: with kidney complications Diabetes mellitus complication detail: with chronic kidney disease (8) Atrial fibrillation Code(s): I48.91 - UNSPECIFIED ATRIAL FIBRILLATION 9 bilateral cellulitis of the legs legs--rt looks better ,left still with erythema which is improving plan continue abx will continue ertapenam will probably tonio it for a day or so resp support incentive igor physio
[2016-08-20] MEDS: DULoxetine HCL 30 MG CAPSULE.DR (FP) PO SCH (13:54)
[2016-08-20] MEDS: DOCUSATE SODIUM 100 MG CAPSULE (FP) PO SCH ×2 (13:55→23:32)
--- NOTE | 2016-08-20 15:34 | PN ---
Progress Note (short form) - Note Progress Note: Subjective: The patient was seen and examined at the bedside he reports feeling good. He is refusing to participate in any kind of physical therapy at this time. He is refusing passive ROM. He denies any shortness of breath Current Medications Generic Name Dose Route Start Last Admin Trade Name Freq PRN Reason Stop Dose Admin Acetaminophen 650 mg 08/14/16 17:14 08/15/16 21:35 Tylenol - PO 650 mg Q6H PRN Administration PAIN Acetylcysteine 600 mg 08/16/16 12:30 08/20/16 11:35 Mucomyst 20 Oral / Inh Use Only* NEB 600 mg QIDR [facility] Administration Albuterol Sulfate 1 amp 08/17/16 18:00 08/20/16 11:35 Ventolin 0.083% Nebulizer Soln - NEB 1 amp QIDR [facility] Administration Amlodipine Besylate 10 mg 08/15/16 10:00 08/20/16 09:48 Norvasc - PO 10 mg DAILY [facility] Administration Apixaban 2.5 mg 08/14/16 22:00 08/20/16 09:48 Eliquis - PO 2.5 mg BID [facility] Administration Aspirin 81 mg 08/15/16 10:00 08/20/16 09:49 Ecotrin - PO 81 mg DAILY [facility] Administration Atorvastatin Calcium 20 mg 08/14/16 22:00 08/19/16 22:39 Lipitor - PO 20 mg HS [facility] Administration Bupropion HCl 150 mg 08/15/16 10:00 08/20/16 09:47 Wellbutrin Xl - PO 150 mg DAILY [facility] Administration Chlorhexidine Gluconate 1 applic 08/14/16 22:00 08/19/16 22:40 Hibiclens For Decolonization - TP 1 applic HS [facility] Administration Clindamycin HCl 300 mg 08/15/16 00:00 08/20/16 13:55 Cleocin - PO 300 mg Q6HPO [facility] Administration Docusate Sodium 100 mg 08/14/16 22:00 08/20/16 13:55 Colace - PO Not Given BID [facility] Duloxetine HCl 60 mg 08/15/16 10:00 08/20/16 13:54 Cymbalta - PO 60 mg DAILY [facility] Administration Emollient Ointment 1 applic 08/14/16 22:00 08/20/16 09:48 Aquaphor - TP 1 applic BID [facility] Administration Epoetin Keith 10,000 unit 08/16/16 10:00 08/18/16 19:34 Procrit - SQ 10,000 unit MoWeFr@1000 [facility] Administration Ferrous Sulfate 325 mg 08/14/16 22:00 08/20/16 09:49 Feosol - PO 325 mg BID [facility] Administration Furosemide 80 mg 08/16/16 14:00 08/20/16 13:53 Lasix Injection - IVPUSH 80 mg BID@0600,1400 [facility] Administration Guaifenesin 10 ml 08/14/16 17:14 08/20/16 09:52 Robitussin Dm - PO 10 ml Q6H PRN Administration COUGH Ertapenem 1 gm/ Sodium 50 mls @ 100 mls/hr 08/15/16 18:15 08/20/16 09:51 Chloride IVPB 100 mls/hr DAILY [facility] Administration Protocol Metoprolol Tartrate 25 mg 08/14/16 22:00 08/20/16 09:47 Lopressor - PO 25 mg BID [facility] Administration Nystatin 1 applic 08/15/16 10:00 08/20/16 09:49 Nystop Powder - TP 1 applic DAILY [facility] Administration Pantoprazole Sodium 40 mg 08/15/16 10:00 08/20/16 09:47 Protonix - PO 40 mg DAILY [facility] Administration Polyethylene Glycol 17 gm 08/14/16 15:15 08/20/16 09:50 Miralax (For Daily Use) - PO Not Given DAILY [facility] Prednisone 40 mg 08/15/16 10:00 08/20/16 09:47 Deltasone - PO 40 mg DAILY [facility] Administration Senna 2 tab 08/15/16 10:00 08/20/16 09:49 Senna - PO 2 tab DAILY [facility] Administration Tamsulosin HCl 0.4 mg 08/15/16 08:30 08/20/16 09:48 Flomax - PO 0.4 mg DAILY@0830 [facility] Administration Objective: Vital Signs Period Temp Pulse Resp BP Sys/[place] Pulse Ox Last 24 Hr 96.6 F-97.8 F 54-74 18-25 103-124/54-95 97-100 Physical Exam: General: NAD, A&Ox3 Lungs: Decreased breath sounds on the left Heart: RRR, S1S2 Abd: Soft, non-tender, non-distended. Normoactive bowel sounds Ext: B/l lower extremity edema. Chronic venous stasis changes CBCD WBC 8.5 K/mm3 (4.0-10.0) 08/20/16 05:10 RBC 2.76 M/mm3 (4.00-5.60) L 08/20/16 05:10 Hgb 7.9 GM/dL (11.7-16.9) L 08/20/16 05:10 Hct 24.3 % (35.4-49) L 08/20/16 05:10 MCV 88.1 fl (80-96) 08/20/16 05:10 MCHC 32.4 g/dl (32.0-35.9) 08/20/16 05:10 RDW 16.5 % (11.9-15.9) H 08/20/16 05:10 Plt Count 238 K/MM3 (134-434) 08/20/16 05:10 MPV 7.4 fl (7.5-11.1) L 08/20/16 05:10 CMP Sodium 143 mmol/L (136-145) 08/20/16 05:10 Potassium 3.7 mmol/L (3.5-5.1) 08/20/16 05:10 Chloride 94 mmol/L (98-107) L 08/20/16 05:10 Carbon Dioxide 37 mmol/L (21-32) H 08/20/16 05:10 Anion Gap 12 (8-16) 08/20/16 05:10 BUN 61 mg/dL (7-18) H 08/20/16 05:10 Creatinine 1.7 mg/dL (0.7-1.3) H 08/20/16 05:10 Creat Clearance w eGFR 39.71 (>60) 08/20/16 05:10 Random Glucose 101 mg/dL (74-106) D 08/20/16 05:10 Calcium 7.9 mg/dL (8.5-10.1) L 08/20/16 05:10 Total Bilirubin 0.4 mg/dL (0.2-1.0) 08/20/16 05:10 AST 8 U/L (15-37) L 08/20/16 05:10 ALT 12 U/L (12-78) 08/20/16 05:10 Alkaline Phosphatase 60 U/L (45-117) 08/20/16 05:10 Total Protein 5.1 g/dl (6.4-8.2) L 08/20/16 05:10 Albumin 2.3 g/dl (3.4-5.0) L 08/20/16 05:10 CARDIAC ENZYMES Creatine Kinase 26 IU/L (39-308) L 08/11/16 23:00 Troponin I < 0.02 ng/ml (0.00-0.05) 08/11/16 23:00 Microbiology 08/12/16 06:00 Nasopharyngeal Swab Respiratory Virus (PCR) - Final 08/11/16 18:20 Blood - Peripheral Venous Blood Culture - Final NO GROWTH AFTER 5 DAYS INCUBATION 08/11/16 18:20 Blood - Peripheral Venous Blood Culture - Final NO GROWTH AFTER 5 DAYS INCUBATION 08/12/16 06:00 Sputum - Expectorated Gram Stain - Final 08/12/16 06:00 Sputum - Expectorated Sputum Culture - Final NORMAL RESPIRATORY FAWN 08/12/16 00:00 Pleural Fluid Gram Stain - Final 08/12/16 00:00 Pleural Fluid Body Fluid Culture - Final NO GROWTH OF AEROBIC ORGANISMS AFTER 48 HOURS INCUBATION 08/12/16 00:00 Pleural Fluid Anaerobic Culture - Final NO ANAEROBES WERE ISOLATED 08/11/16 16:55 Urine - Urine - Catheterized Urine Culture - Final NO GROWTH OBTAINED 08/12/16 12:00 Urine - Urine Clifford Legionella Antigen - Final 08/12/16 12:00 Urine - Urine Clifford Streptococcus pneumoniae Antigen (M - Final Assessment: This is a 75 year old male with PMHx of HTN, hyperlipidemia, CAD s/ p stenting x2 (2014), diastolic heart failure, a.fib, COPD, respiratory failure requiring intubation (02/2016-04/2016), GI bleed, h/o DVT and PE who [facility] from the [facility] for shortness of breath. Plan: 1) Pulmonary: Acute on chronic hypoxic and hypercapnic respiratory failure, pleural effusions, Acute COPD exacerbation - Chest CT atelectasis of the left lung with moderate pleural effusion. Moderate right pleural effusion with lower lobe atelectasis - Chest X-ray today with better aeration of the left hemithorax with decreased fluid and atelectasis. There are still congestive changes. There are bilateral effusions L>R. There may be a left base infiltrate and/or some atelectasis as well - NIPPV at night and PRN - Continue Prednisone 40mg po daily - Mucomyst meds qid - Albuterol nebs qid - Chest PT bid - Bed percussion - Encourage coughing and deep breathing - Incentive spirometry - Appreciate pulmonary consult B/l pleural effusions 2) ID: pneumonia - Continue Clindamycin (08/12- ) - Continue Ertapenem (08/15- ), has been on carbapenem since 08/11 - WBC trending down - Appreciate ID consult 3) Cardiology: Acute on chronic combined systolic and diastolic heart failure - Echo 05/2016 showed normal LV systolic function, no sig valvular abnl - Continue Lasix 80mg IVP bid - Monitor Chest x-rays - Appreciate cardiology consult CAD s/p PCI 03/2015, 04/2015 - Continue ASA - Continue Lipitor - Continue Lopressor DVT LLE - Continue Eliquis (renally dosed) 4) : KARLOS on CKD - Cr 1.7 ~ baseline (1.9) - Continue to monitor 5) F/E/N: - Monitor electrolytes - Diabetic/low sodium diet 6) Prophylaxis: - On Eliquis 7) Dispo: - Requires continued ICU care CODE STATUS: FULL CODE Visit type - Emergency Visit Emergency Visit: Yes ED Registration Date: 08/11/16 Care time: The patient presented to the Emergency Department on the above date and was hospitalized for further evaluation of their emergent condition. - New Patient This patient is new to me today: No - Critical Care Critical Care patient: Yes Total Critical Care Time (in minutes): 35 Critical Care Statement: The care of this patient involved high complexity decision making to prevent further life threatening deterioration of the patient 's condition and/or to evalute & treat vital organ system(s) failure or risk of failure.
[2016-08-20 23:26] VITALS: TEMP 98
[2016-08-20] MEDS: CHLORHEXIDINE GLUCONATE 4% CLEANSER FOR DECOLONIZATION TP SCH (23:32)
[2016-08-20] MEDS: ATORVASTATIN CA 20 MG TABLET (FP) PO SCH (23:32)
[2016-08-21 06:12] LABS: BASOPHIL 0.3 % (0-2.0); EOSINOPHIL 0.3 % (0-4.5); MCH 28.6 pg (25.7-33.7); MCHC 32.6 g/dl (32.0-35.9); MEAN CELL VOLUME 87.7 fl (80-96); MEAN PLT VOLUME 7.4 fl (7.5-11.1); NEUTROPHILS 88.7 % (42.8-82.8); PLATELET COUNT 276 K/MM3 (134-434); RDW 15.9 % (11.9-15.9); WHITE BLOOD COUNT 10.1 K/mm3 (4.0-10.0)
[2016-08-21] MEDS ORDERED: PT OWN MED DRAWER 7, Y5N ONE ×3 (06:33→17:26)
[2016-08-21 06:41] LABS: ALBUMIN 2.3 g/dl (3.4-5.0); MAGNESIUM 2.9 mg/dL (1.8-2.4)
[2016-08-21] MEDS: ALBUTEROL SO4 0.083% IH SOL 2.5 MG/3 ML VIAL.NEB. NEB SCH ×2 (06:41→12:08)
[2016-08-21] MEDS: ACETYLCYSTEINE 20% 200MG/ML 4 ML VIAL *FOR ORAL / INH USE ONLY NEB SCH ×2 (06:41→12:07)
[2016-08-21 06:46] LABS: BILIRUBIN,TOTAL 0.3 mg/dL (0.2-1.0); COCKROFT - GAULT 53.8; CREATININE 1.7 mg/dL (0.7-1.3); PHOSPHOROUS 4.5 mg/dL (2.5-4.9); TOT PROT 5.1 g/dl (6.4-8.2)
[2016-08-21] MEDS: CLINDAMYCIN HCL 150 MG CAPSULE (FP) PO SCH ×3 (08:27→17:58)
[2016-08-21] MEDS: FUROSEMIDE 40 MG/4 ML INJECTABLE VIAL IVPUSH SCH ×2 (08:28→14:05)
[2016-08-21] MEDS: TAMSULOSIN HCL 0.4 MG CAP.ER.24H (FP) PO SCH (09:02)
[2016-08-21] MEDS: DOCUSATE SODIUM 100 MG CAPSULE (FP) PO SCH (09:03)
[2016-08-21] MEDS: MINERAL OIL/PET HY-PHL TOPICAL OINTMENT 454 GM JAR TP SCH (09:03)
[2016-08-21] MEDS: predniSONE 20 MG TABLET (UD) PO SCH (09:03)
[2016-08-21] MEDS: DULoxetine HCL 30 MG CAPSULE.DR (FP) PO SCH (09:03)
[2016-08-21] MEDS: ASPIRIN COATED 81 MG TABLET.EC PO SCH (09:04)
[2016-08-21] MEDS: METOPROLOL TARTRATE 25 MG TABLET (FP) PO SCH (09:04)
[2016-08-21] MEDS: APIXABAN 2.5 MG TABLET PO SCH (09:04)
[2016-08-21] MEDS: FERROUS SO4 325 MG TABLET (FP) PO SCH (09:04)
[2016-08-21] MEDS: PANTOPRAZOLE 40 MG TABLET (FP) PO SCH (09:05)
[2016-08-21] MEDS: SENNOSIDES 8.6MG TABLET (FP) PO SCH (09:05)
[2016-08-21] MEDS: NYSTATIN POWDER 100,000 UNITS/GM - 15 GM TOPICAL POWDER TP SCH (09:05)
[2016-08-21] MEDS: POLYETHYLENE GLYCOL 3350 119 GM BTL PO SCH (09:05)
[2016-08-21] MEDS: amLODIPine BESYLATE 10 MG TABLET (FP) PO SCH (09:05)
[2016-08-21] MEDS: ACETAMINOPHEN 325 MG TABLET (FP) PO PRN (09:06)
[2016-08-21] MEDS: ERTAPENEM SODIUM 1 GM in SODIUM CHLORIDE 50 ML IVPB SCH (09:39)
[2016-08-21] MEDS: EPOETIN ALFA 10,000 UNIT/1 ML VIAL SQ SCH (10:28)
--- NOTE | 2016-08-21 11:09 | PN ---
Progress Note, Physician - Current Medication List Current Medications: Active Medications Acetaminophen (Tylenol -) 650 mg PO Q6H PRN PRN Reason: PAIN Last Admin: 08/21/16 09:06 Dose: 650 mg Acetylcysteine (Mucomyst 20 Oral / Inh Use Only*) 600 mg NEB QIDR [facility] Last Admin: 08/21/16 06:41 Dose: 600 mg Albuterol Sulfate (Ventolin 0.083% Nebulizer Soln -) 1 amp NEB QIDR [facility] Last Admin: 08/21/16 06:41 Dose: 1 amp Amlodipine Besylate (Norvasc -) 10 mg PO DAILY [facility] Last Admin: 08/21/16 09:05 Dose: 10 mg Apixaban (Eliquis -) 2.5 mg PO BID [facility] Last Admin: 08/21/16 09:04 Dose: 2.5 mg Aspirin (Ecotrin -) 81 mg PO DAILY [facility] Last Admin: 08/21/16 09:04 Dose: 81 mg Atorvastatin Calcium (Lipitor -) 20 mg PO HS [facility] Last Admin: 08/20/16 23:32 Dose: 20 mg Bupropion HCl (Wellbutrin Xl -) 150 mg PO DAILY [facility] Last Admin: 08/21/16 10:28 Dose: 150 mg Chlorhexidine Gluconate (Hibiclens For Decolonization -) 1 applic TP HS [facility] Last Admin: 08/20/16 23:32 Dose: 1 applic Clindamycin HCl (Cleocin -) 300 mg PO Q6HPO [facility] Last Admin: 08/21/16 08:27 Dose: Not Given Docusate Sodium (Colace -) 100 mg PO BID [facility] Last Admin: 08/21/16 09:03 Dose: 100 mg Duloxetine HCl (Cymbalta -) 60 mg PO DAILY [facility] Last Admin: 08/21/16 09:03 Dose: 60 mg Emollient Ointment (Aquaphor -) 1 applic TP BID [facility] Last Admin: 08/21/16 09:03 Dose: 1 applic Epoetin Keith (Procrit -) 10,000 unit SQ MoWeFr@1000 [facility] Last Admin: 08/21/16 10:28 Dose: 10,000 unit Ferrous Sulfate (Feosol -) 325 mg PO BID [facility] Last Admin: 08/21/16 09:04 Dose: 325 mg Furosemide (Lasix Injection -) 80 mg IVPUSH BID@0600,1400 [facility] Last Admin: 08/21/16 08:28 Dose: 80 mg Guaifenesin (Robitussin Dm -) 10 ml PO Q6H PRN PRN Reason: COUGH Last Admin: 08/20/16 09:52 Dose: 10 ml Ertapenem 1 gm/ Sodium (Chloride) 50 mls @ 100 mls/hr IVPB DAILY [facility] PRN Reason: Protocol Last Admin: 08/21/16 09:39 Dose: 100 mls/hr Metoprolol Tartrate (Lopressor -) 25 mg PO BID [facility] Last Admin: 08/21/16 09:04 Dose: 25 mg Nystatin (Nystop Powder -) 1 applic TP DAILY [facility] Last Admin: 08/21/16 09:05 Dose: 1 applic Pantoprazole Sodium (Protonix -) 40 mg PO DAILY [facility] Last Admin: 08/21/16 09:05 Dose: 40 mg Polyethylene Glycol (Miralax (For Daily Use) -) 17 gm PO DAILY [facility] Last Admin: 08/21/16 09:05 Dose: Not Given Prednisone (Deltasone -) 40 mg PO DAILY [facility] Last Admin: 08/21/16 09:03 Dose: 40 mg Senna (Senna -) 2 tab PO DAILY [facility] Last Admin: 08/21/16 09:05 Dose: 2 tab Tamsulosin HCl (Flomax -) 0.4 mg PO DAILY@0830 [facility] Last Admin: 08/21/16 09:02 Dose: 0.4 mg - Objective Vital Signs: Vital Signs Temperature 98 F 08/20/16 22:00 Pulse Rate 59 L 08/21/16 10:42 Respiratory Rate 20 08/21/16 10:31 Blood Pressure 121/65 08/21/16 10:31 O2 Sat by Pulse Oximetry (%) 97 08/21/16 10:42 Labs: CBC, BMP 08/21/16 05:05 08/21/16 05:05 INR, PTT INR 1.15 (0.82-1.09) H 08/16/16 08:27 Assessment/Plan 75 year old man with a history of HTN, COPD on home O2, Chronic combined systolic/diastolic CHF, CKD, JOY, CAD moderate LV systolic dysfunction, cardiac cath 03/2015 showed 2VD with RCA and LAD disease s/p PCI with ABDON of RCA 2014 and staged PCI of LAD in 04/2015 with significant improvement in symptoms for some time, followed by multiple admissions for respiratory failure, sepsis, KARLOS, has been in NH, recently tx for presumed PNA, admitted with sob and recurrent pleural effusions. SOB-multifactorial, PNA, AE COPD, pleural effusions, acute on chronic combined systolic/diastolic CHF -improving gradually with diuresis, BUN/creat stable today -Cont Lasix 80mg IV BID -monitor strict I/Os and daily weights -monitor BUN/creat, may need to reduce dose of lasix tomorrow -monitor and replete electrolytes as needed -cont BIPAP as needed -last echo 05/2016 showed normal LV systolic function, no sig valvular abnl -Abx as per ID CAD-PCI with ABDON of RCA 03/2015 and staged PCI of LAD in 04/2015 -echo as above -cont ASA, lipitor, metoprolol HTN-adequately controlled -cont current regimen HLD -cont Lipitor DVT-LLE -on eliquis adjusted CKD
[2016-08-21] MEDS ORDERED: LABETALOL HCL 5 MG/1 ML (100MG/20 ML VIAL) IVPUSH ONE (12:00)
--- NOTE | 2016-08-21 12:44 | PN ---
Teaching Attending Note Name of Resident: Jenelle Nava ATTENDING PHYSICIAN STATEMENT I saw and evaluated the patient. I reviewed the resident's note and discussed the case with the resident. I agree with the resident's findings and plan as documented. SUBJECTIVE: Pt seen and examined in the ICU. Breathing continues to improve. BiPAP overnight , now on 50% ventimask. Still some cough and wheezing. OBJECTIVE: Last Vital Signs Temp Pulse Resp BP Pulse Ox 98 F 57 L 20 115/60 97 08/20/16 22:00 08/21/16 12:00 08/21/16 12:00 08/21/16 12:00 08/21/16 10:42 Intake & Output 08/18/16 08/19/16 08/20/16 08/21/16 23:59 23:59 23:59 23:59 Intake Total 130 840 610 100 Output Total 1450 2200 1050 400 Balance -1320 -1360 -440 -300 Weight 217 lb 217 lb 14.4 oz 217 lb Gen: less tachypneic Heart: RRR Lung: scattered rhonchi Abd: soft, nontender Ext: no edema CBC, BMP 08/21/16 05:05 08/21/16 05:05 Active Medications Acetaminophen (Tylenol -) 650 mg PO Q6H PRN PRN Reason: PAIN Last Admin: 08/21/16 09:06 Dose: 650 mg Acetylcysteine (Mucomyst 20 Oral / Inh Use Only*) 600 mg NEB QIDR [facility] Last Admin: 08/21/16 12:07 Dose: 600 mg Albuterol Sulfate (Ventolin 0.083% Nebulizer Soln -) 1 amp NEB QIDR [facility] Last Admin: 08/21/16 12:08 Dose: 1 amp Amlodipine Besylate (Norvasc -) 10 mg PO DAILY [facility] Last Admin: 08/21/16 09:05 Dose: 10 mg Apixaban (Eliquis -) 2.5 mg PO BID [facility] Last Admin: 08/21/16 09:04 Dose: 2.5 mg Aspirin (Ecotrin -) 81 mg PO DAILY [facility] Last Admin: 08/21/16 09:04 Dose: 81 mg Atorvastatin Calcium (Lipitor -) 20 mg PO HS [facility] Last Admin: 08/20/16 23:32 Dose: 20 mg Bupropion HCl (Wellbutrin Xl -) 150 mg PO DAILY [facility] Last Admin: 08/21/16 10:28 Dose: 150 mg Chlorhexidine Gluconate (Hibiclens For Decolonization -) 1 applic TP HS [facility] Last Admin: 08/20/16 23:32 Dose: 1 applic Clindamycin HCl (Cleocin -) 300 mg PO Q6HPO [facility] Last Admin: 08/21/16 08:27 Dose: Not Given Docusate Sodium (Colace -) 100 mg PO BID [facility] Last Admin: 08/21/16 09:03 Dose: 100 mg Duloxetine HCl (Cymbalta -) 60 mg PO DAILY [facility] Last Admin: 08/21/16 09:03 Dose: 60 mg Emollient Ointment (Aquaphor -) 1 applic TP BID [facility] Last Admin: 08/21/16 09:03 Dose: 1 applic Epoetin Keith (Procrit -) 10,000 unit SQ MoWeFr@1000 [facility] Last Admin: 08/21/16 10:28 Dose: 10,000 unit Ferrous Sulfate (Feosol -) 325 mg PO BID [facility] Last Admin: 08/21/16 09:04 Dose: 325 mg Furosemide (Lasix Injection -) 80 mg IVPUSH BID@0600,1400 [facility] Last Admin: 08/21/16 08:28 Dose: 80 mg Guaifenesin (Robitussin Dm -) 10 ml PO Q6H PRN PRN Reason: COUGH Last Admin: 08/20/16 09:52 Dose: 10 ml Ertapenem 1 gm/ Sodium (Chloride) 50 mls @ 100 mls/hr IVPB DAILY [facility] PRN Reason: Protocol Last Admin: 08/21/16 09:39 Dose: 100 mls/hr Metoprolol Tartrate (Lopressor -) 25 mg PO BID [facility] Last Admin: 08/21/16 09:04 Dose: 25 mg Nystatin (Nystop Powder -) 1 applic TP DAILY [facility] Last Admin: 08/21/16 09:05 Dose: 1 applic Pantoprazole Sodium (Protonix -) 40 mg PO DAILY [facility] Last Admin: 08/21/16 09:05 Dose: 40 mg Polyethylene Glycol (Miralax (For Daily Use) -) 17 gm PO DAILY [facility] Last Admin: 08/21/16 09:05 Dose: Not Given Prednisone (Deltasone -) 40 mg PO DAILY [facility] Last Admin: 08/21/16 09:03 Dose: 40 mg Senna (Senna -) 2 tab PO DAILY [facility] Last Admin: 08/21/16 09:05 Dose: 2 tab Tamsulosin HCl (Flomax -) 0.4 mg PO DAILY@0830 [facility] Last Admin: 08/21/16 09:02 Dose: 0.4 mg ASSESSMENT AND PLAN: Acute on Chronic Hypoxic and Hypercapneic Respiratory Failure improving Acute on Chronic Diastolic Heart Failure Pleural Effusion Acute on Chronic Renal Failure Atelectasis Atrial Fibrillation CAD s/p stents COPD HTN Hyperlipidemia h/o PE/DVT h/o GI Bleed - mucolytics, chest PT, bed percussion - position right side down - BiPAP - O2 to keep SPo2 >90% - continue lasix - monitor urine output, creatinine - replete lytes - monitor CXR - prednisone taper - inhaled bronchodilators - rate controlled - continue anticoagulation - can monitor on telemetry critical care time spent in reviewing chart, evaluating patient and formulating plan 35 min
--- NOTE | 2016-08-21 14:35 | PN ---
Physical Exam: SUBJECTIVE: Patient seen and examined. No overnight events. The pt is on ventimask, used BiPap last night. OBJECTIVE: Vital Signs Period Temp Pulse Resp BP Sys/[place] Pulse Ox Last 24 Hr 98 F-98.4 F 57-76 18-20 115-137/55-66 95-100 GENERAL: The patient is awake, alert, and fully oriented, in no acute distress, on venti mask. HEAD: Normal with no signs of trauma. EYES: extraocular movements intact, sclera anicteric, conjunctiva clear. No ptosis. ENT: Ears normal, nares patent, oropharynx clear without exudates, moist mucous membranes. NECK: Trachea midline, full range of motion, supple. LUNGS: Breath sounds equal, diminished bilaterally, crackles b/l, no accessory muscle use. HEART: Regular rate and rhythm, S1, S2 without murmur, rub or gallop. ABDOMEN: Soft, nontender, nondistended, normoactive bowel sounds, no guarding, no rebound, no hepatosplenomegaly, no masses. EXTREMITIES: 2+ pulses, warm, well-perfused,1+ edema. NEUROLOGICAL: Normal speech, gait not observed. PSYCH: Normal mood, normal affect. SKIN: Warm, dry, normal turgor, mild rash in LE B/L. Laboratory Results - last 24 hr 08/21/16 08/21/16 05:05 05:05 WBC 10.1 H RBC 2.80 L Hgb 8.0 L Hct 24.6 L MCV 87.7 MCHC 32.6 RDW 15.9 Plt Count 276 MPV 7.4 L Neutrophils % 88.7 H Lymphocytes % 4.5 L Monocytes % 6.2 Eosinophils % 0.3 D Basophils % 0.3 Sodium 146 H Potassium 4.1 Chloride 97 L Carbon Dioxide 39 H Anion Gap 10 BUN 61 H Creatinine 1.7 H Creat Clearance w eGFR 39.71 Random Glucose 91 Calcium 8.0 L Phosphorus 4.5 Magnesium 2.9 H Total Bilirubin 0.3 D AST 8 L ALT 10 L Alkaline Phosphatase 59 Total Protein 5.1 L Albumin 2.3 L Active Medications Generic Name Dose Route Start Last Admin Trade Name Freq PRN Reason Stop Dose Admin Acetaminophen 650 mg 08/14/16 17:14 08/21/16 09:06 Tylenol - PO 650 mg Q6H PRN Administration PAIN Acetylcysteine 600 mg 08/16/16 12:30 08/21/16 12:07 Mucomyst 20 Oral / Inh Use Only* NEB 600 mg QIDR [facility] Administration Albuterol Sulfate 1 amp 08/17/16 18:00 08/21/16 12:08 Ventolin 0.083% Nebulizer Soln - NEB 1 amp QIDR [facility] Administration Amlodipine Besylate 10 mg 08/15/16 10:00 08/21/16 09:05 Norvasc - PO 10 mg DAILY [facility] Administration Apixaban 2.5 mg 08/14/16 22:00 08/21/16 09:04 Eliquis - PO 2.5 mg BID [facility] Administration Aspirin 81 mg 08/15/16 10:00 08/21/16 09:04 Ecotrin - PO 81 mg DAILY [facility] Administration Atorvastatin Calcium 20 mg 08/14/16 22:00 08/20/16 23:32 Lipitor - PO 20 mg HS [facility] Administration Bupropion HCl 150 mg 08/15/16 10:00 08/21/16 10:28 Wellbutrin Xl - PO 150 mg DAILY [facility] Administration Chlorhexidine Gluconate 1 applic 08/14/16 22:00 08/20/16 23:32 Hibiclens For Decolonization - TP 1 applic HS [facility] Administration Clindamycin HCl 300 mg 08/15/16 00:00 08/21/16 14:05 Cleocin - PO 300 mg Q6HPO [facility] Administration Docusate Sodium 100 mg 08/14/16 22:00 08/21/16 09:03 Colace - PO 100 mg BID [facility] Administration Duloxetine HCl 60 mg 08/15/16 10:00 08/21/16 09:03 Cymbalta - PO 60 mg DAILY [facility] Administration Emollient Ointment 1 applic 08/14/16 22:00 08/21/16 09:03 Aquaphor - TP 1 applic BID [facility] Administration Epoetin Keith 10,000 unit 08/16/16 10:00 08/21/16 10:28 Procrit - SQ 10,000 unit MoWeFr@1000 [facility] Administration Ferrous Sulfate 325 mg 08/14/16 22:00 08/21/16 09:04 Feosol - PO 325 mg BID [facility] Administration Furosemide 80 mg 08/16/16 14:00 08/21/16 14:05 Lasix Injection - IVPUSH 80 mg BID@0600,1400 [facility] Administration Guaifenesin 10 ml 08/14/16 17:14 08/20/16 09:52 Robitussin Dm - PO 10 ml Q6H PRN Administration COUGH Ertapenem 1 gm/ Sodium 50 mls @ 100 mls/hr 08/15/16 18:15 08/21/16 09:39 Chloride IVPB 100 mls/hr DAILY [facility] Administration Protocol Metoprolol Tartrate 25 mg 08/14/16 22:00 08/21/16 09:04 Lopressor - PO 25 mg BID [facility] Administration Nystatin 1 applic 08/15/16 10:00 08/21/16 09:05 Nystop Powder - TP 1 applic DAILY [facility] Administration Pantoprazole Sodium 40 mg 08/15/16 10:00 08/21/16 09:05 Protonix - PO 40 mg DAILY [facility] Administration Polyethylene Glycol 17 gm 08/14/16 15:15 08/21/16 09:05 Miralax (For Daily Use) - PO Not Given DAILY [facility] Prednisone 40 mg 08/15/16 10:00 08/21/16 09:03 Deltasone - PO 40 mg DAILY [facility] Administration Senna 2 tab 08/15/16 10:00 08/21/16 09:05 Senna - PO 2 tab DAILY [facility] Administration Tamsulosin HCl 0.4 mg 08/15/16 08:30 08/21/16 09:02 Flomax - PO 0.4 mg DAILY@0830 [facility] Administration CXR today: left pleural effusion, improved CT chest: 1. Atelectasis of the left lung with moderate pleural effusion. 2. Moderate right pleural effusion with lower lobe atelectasis. Please see above discussion. ASSESSMENT/PLAN: 75 year old man with a history of HTN, COPD on home O2, chronic systolic/ diastolic CHF, CKD, JOY, CAD s/p 2 stents, GI bleed, GERD, , TIA, anemia, multiple admissions for respiratory failure, sepsis, KARLOS, has been in NH, recently tx for presumed PNA, admitted with sob and recurrent pleural effusions and cough. Pulmonary; SOB-multifactorial, PNA, COPD, pleural effusions, -CXR improved, confirmed with CT chest and US at bedside, -cont.repositioning the pt, chest PT, mucomyst NEB, albuterol -s/p thoracentesis, fluid appeared transudative -continue prednisone Card: -will continue diuresis: Lasix -monitor strict I/Os and daily weights -cont Lopressor 25mg bid -not on PIPER-I currently due to fluctuating renal function in the past -cont ASA -cont lipitor -cont lopressor ID: -continue antibiotics for cellulitis Ertapenem and Clindamycin day 7 Nephro: -monitor BUN/Creat, electrolytes, keep k=4, Mg=2 -last echo 05/2016 showed normal LV systolic function, no signif. valvular abnl -receiving steroids and Abx DVT -on eliquis Disposition: pending transfer to telemetry floor Problem List - Problems (1) Acute and chronic respiratory failure with hypoxia Code(s): J96.21 - ACUTE AND CHRONIC RESPIRATORY FAILURE WITH HYPOXIA (2) Atrial fibrillation Code(s): I48.91 - UNSPECIFIED ATRIAL FIBRILLATION (3) GERD (gastroesophageal reflux disease) Code(s): K21.9 - GASTRO-ESOPHAGEAL REFLUX DISEASE WITHOUT ESOPHAGITIS (4) Pleural effusion Code(s): J90 - PLEURAL EFFUSION, NOT ELSEWHERE CLASSIFIED (5) Chronic kidney disease (CKD) Code(s): N18.9 - CHRONIC KIDNEY DISEASE, UNSPECIFIED Qualifiers: Chronic kidney disease stage: unspecified stage Qualified Code(s): N18.9 - Chronic kidney disease, unspecified (6) Congestive heart failure Code(s): I50.9 - HEART FAILURE, UNSPECIFIED (7) Diabetes Code(s): E11.9 - TYPE 2 DIABETES MELLITUS WITHOUT COMPLICATIONS Qualifiers: Diabetes mellitus type: type 2 Diabetes mellitus complication status: with kidney complications Diabetes mellitus complication detail: with chronic kidney disease Visit type - Emergency Visit Emergency Visit: Yes ED Registration Date: 08/11/16 Care time: The patient presented to the Emergency Department on the above date and was hospitalized for further evaluation of their emergent condition. - New Patient This patient is new to me today: No - Critical Care Critical Care patient: Yes Total Critical Care Time (in minutes): 40 Critical Care Statement: The care of this patient involved high complexity decision making to prevent further life threatening deterioration of the patient 's condition and/or to evalute & treat vital organ system(s) failure or risk of failure.
[2016-08-21 15:42] VITALS: BP 127/59; PULSE 68
--- NOTE | 2016-08-21 17:01 | DS ---
Physical Exam: SUBJECTIVE: Patient seen and examined at bedside. On BiPAP. Cough improved. OBJECTIVE: Vital Signs Period Temp Pulse Resp BP Sys/[place] Pulse Ox Last 24 Hr 98 F 57-76 18-22 115-137/55-66 95-100 PHYSICAL EXAM GENERAL: The patient is awake, alert, and fully oriented, in no acute distress. LUNGS: Scattered rhonchi. HEART: Regular, in sinus rhythm. S1, S2 without murmur, rub or gallop. ABDOMEN: Soft, nontender, nondistended, normoactive bowel sounds, no guarding, no rebound EXTREMITIES: 2+ pulses, warm, well-perfused, 1+ bilateral edema NEUROLOGICAL: Cranial nerves II through XII grossly intact. Normal speech, gait not observed. Laboratory Results - last 24 hr 08/21/16 08/21/16 05:05 05:05 WBC 10.1 H RBC 2.80 L Hgb 8.0 L Hct 24.6 L MCV 87.7 MCHC 32.6 RDW 15.9 Plt Count 276 MPV 7.4 L Neutrophils % 88.7 H Lymphocytes % 4.5 L Monocytes % 6.2 Eosinophils % 0.3 D Basophils % 0.3 Sodium 146 H Potassium 4.1 Chloride 97 L Carbon Dioxide 39 H Anion Gap 10 BUN 61 H Creatinine 1.7 H Creat Clearance w eGFR 39.71 Random Glucose 91 Calcium 8.0 L Phosphorus 4.5 Magnesium 2.9 H Total Bilirubin 0.3 D AST 8 L ALT 10 L Alkaline Phosphatase 59 Total Protein 5.1 L Albumin 2.3 L HOSPITAL COURSE: Date of Admission:08/11/16 Date of Discharge: 08/21/16 75 year-old male with a significant PMH of HTN, HLD, CAD s/p stents x 2 (2014), diastolic heart failure, afib, COPD, respiratory failure requiring intubation ( 02/1016-04/2016), GI bleed, h/o DVT and PE. SN[facility] resident. Admitted for respiratory failure, HCAP, left pleural effusion, and acute on chronic renal failure. Acute on chronic respiratory failure COPD exacerbation --treated with steroids, duonebs, mucomyst --required continuous BIPAP, chest PT, percussion bed module; alternatively, NRB at 15L HCAP --treated with meropenem x 7 days Acute on chronic diastolic heart failure --required aggressive diuresis for bilateral pleural effusions, L>R; left effusion drained with pigtail catheter subsequently removed --at time of discharge on Lasix IV 80mg BID; transition on discharge to torsemide 80mg BID Paroxysmal atrial fibrillation --treated with low dose metoprolol --continued Eliquis Acute on chronic renal failure --2.2 on admission, 1.8 today (baseline 1.5) --decrease lasix IV to 40 BID Hypertension --BP well-controlled --continued amlodipine, metoprolol Hyperlipidemia --not on a statin CAD s/p stents --continued ASA h/o DVT and PE --on Eliquis Minutes to complete discharge: 35 Discharge Summary Reason For Visit: PNEUMONIA Current Active Problems Acute and chronic respiratory failure with hypoxia (Acute) Atrial fibrillation (Acute) GERD (gastroesophageal reflux disease) (Acute) Pleural effusion (Acute) Pneumonia (Acute) Renal failure (ARF), acute on chronic (Acute) Anemia (Chronic) Condition: Improved - Instructions Diet, Activity, Other Instructions: Patient needs to be maintained on BIPAP or NRB @ 15L. Discharge BIPAP settings: I 18/E 8/ Rate 18/ 50% FiO2 Referrals: Ceci Javed MD [Primary Care Provider] - Disposition: [facility] - Home Medications Comprehensive Discharge Medication List: Ambulatory Orders Aa/Hydrolyzed Collagen, Whey [Lps Neutral Flavor Liquid] 960 ml PO BID 08/11/16 Acetaminophen 650 mg PO Q6H PRN 08/11/16 Albuterol 2.5/Ipratropium 0.5 [Duoneb -] 1 neb IH TID 08/11/16 Amlodipine Besylate [Norvasc -] 10 mg PO DAILY 08/11/16 Apixaban [Eliquis] 2.5 mg PO BID 08/11/16 Aspirin [Aspirin EC] 81 mg PO DAILY 08/11/16 Bupropion HCl [Bupropion Xl] 150 mg PO DAILY 08/11/16 Docusate Sodium [Colace -] 100 mg PO BID 08/11/16 Duloxetine HCl 60 mg PO DAILY 08/11/16 Epoetin Keith [Epogen] 10,000 unit IM MOWEFR 08/11/16 Ferrous Sulfate 325 mg PO BID 08/11/16 Fluticasone/Vilanterol [Breo Ellipta 100-25 Mcg INH] 1 each IH DAILY 08/11/16 Guaifenesin [Mucinex] 600 mg PO Q12H 08/11/16 Mineral Oil/Hydrophil Petrolat [Aquaphor Healing Ointment] 50 gm TP BID Nystatin Powder [Nystop Powder -] 60 gm TP DAILY 08/11/16 Pantoprazole Sodium [Protonix] 40 mg PO DAILY 08/11/16 Polyethylene Glycol 3350 [Miralax 119 gm Btl -] 17 gm PO DAILY 08/11/16 Prednisone 30 mg PO DAILY 08/11/16 Sennosides [Evac-U-Gen] 17.2 mg PO DAILY 08/11/16 Sodium Chloride Nasal [place] [[place] Nasal [place] -] 2 spray NS Q12H PRN 08/23 Tamsulosin HCl [Flomax] 0.4 mg PO DAILY 08/11/16 Acetylcysteine Po/INH 20% [Mucomyst 20 Oral / INH Use Only*] 600 mg NEB QIDR # 120 vial 08/21/16 Atorvastatin Ca [Lipitor] 20 mg PO HS #30 tablet 08/21/16 Metoprolol Tartrate [Lopressor -] 25 mg PO BID #60 tablet 08/21/16 Torsemide 80 mg PO BID #60 cap 08/21/16 This patient is new to me today: No Emergency Visit: Yes ED Registration Date: 08/11/16 Care time: The patient presented to the Emergency Department on the above date and was hospitalized for further evaluation of their emergent condition. Critical Care patient: No - Discharge Referral Referred to [facility] Med [facility] No
--- NOTE | 2016-08-21 17:49 | PN ---
Progress Note, Physician History of Present Illness: Pt transfered out of Icu to telemetry floor. Sleeping on BiPAP, lying flat without apparent distress. - Current Medication List Current Medications: Active Medications Acetaminophen (Tylenol -) 650 mg PO Q6H PRN PRN Reason: PAIN Last Admin: 08/21/16 09:06 Dose: 650 mg Acetylcysteine (Mucomyst 20 Oral / Inh Use Only*) 600 mg NEB QIDR [facility] Last Admin: 08/21/16 12:07 Dose: 600 mg Albuterol Sulfate (Ventolin 0.083% Nebulizer Soln -) 1 amp NEB QIDR [facility] Last Admin: 08/21/16 12:08 Dose: 1 amp Amlodipine Besylate (Norvasc -) 10 mg PO DAILY [facility] Last Admin: 08/21/16 09:05 Dose: 10 mg Apixaban (Eliquis -) 2.5 mg PO BID [facility] Last Admin: 08/21/16 09:04 Dose: 2.5 mg Aspirin (Ecotrin -) 81 mg PO DAILY [facility] Last Admin: 08/21/16 09:04 Dose: 81 mg Atorvastatin Calcium (Lipitor -) 20 mg PO HS [facility] Last Admin: 08/20/16 23:32 Dose: 20 mg Bupropion HCl (Wellbutrin Xl -) 150 mg PO DAILY [facility] Last Admin: 08/21/16 10:28 Dose: 150 mg Chlorhexidine Gluconate (Hibiclens For Decolonization -) 1 applic TP HS [facility] Last Admin: 08/20/16 23:32 Dose: 1 applic Clindamycin HCl (Cleocin -) 300 mg PO Q6HPO [facility] Last Admin: 08/21/16 14:05 Dose: 300 mg Docusate Sodium (Colace -) 100 mg PO BID [facility] Last Admin: 08/21/16 09:03 Dose: 100 mg Duloxetine HCl (Cymbalta -) 60 mg PO DAILY [facility] Last Admin: 08/21/16 09:03 Dose: 60 mg Emollient Ointment (Aquaphor -) 1 applic TP BID [facility] Last Admin: 08/21/16 09:03 Dose: 1 applic Epoetin Keith (Procrit -) 10,000 unit SQ MoWeFr@1000 [facility] Last Admin: 08/21/16 10:28 Dose: 10,000 unit Ferrous Sulfate (Feosol -) 325 mg PO BID [facility] Last Admin: 08/21/16 09:04 Dose: 325 mg Furosemide (Lasix Injection -) 80 mg IVPUSH BID@0600,1400 [facility] Last Admin: 08/21/16 14:05 Dose: 80 mg Guaifenesin (Robitussin Dm -) 10 ml PO Q6H PRN PRN Reason: COUGH Last Admin: 08/20/16 09:52 Dose: 10 ml Ertapenem 1 gm/ Sodium (Chloride) 50 mls @ 100 mls/hr IVPB DAILY [facility] PRN Reason: Protocol Last Admin: 08/21/16 09:39 Dose: 100 mls/hr Metoprolol Tartrate (Lopressor -) 25 mg PO BID [facility] Last Admin: 08/21/16 09:04 Dose: 25 mg Nystatin (Nystop Powder -) 1 applic TP DAILY [facility] Last Admin: 08/21/16 09:05 Dose: 1 applic Pantoprazole Sodium (Protonix -) 40 mg PO DAILY [facility] Last Admin: 08/21/16 09:05 Dose: 40 mg Polyethylene Glycol (Miralax (For Daily Use) -) 17 gm PO DAILY [facility] Last Admin: 08/21/16 09:05 Dose: Not Given Prednisone (Deltasone -) 40 mg PO DAILY [facility] Last Admin: 08/21/16 09:03 Dose: 40 mg Senna (Senna -) 2 tab PO DAILY [facility] Last Admin: 08/21/16 09:05 Dose: 2 tab Tamsulosin HCl (Flomax -) 0.4 mg PO DAILY@0830 [facility] Last Admin: 08/21/16 09:02 Dose: 0.4 mg - Objective Vital Signs: Vital Signs Temperature 98 F 08/20/16 22:00 Pulse Rate 68 08/21/16 15:41 Respiratory Rate 22 08/21/16 15:41 Blood Pressure 127/59 08/21/16 15:41 O2 Sat by Pulse Oximetry (%) 97 08/21/16 10:42 Constitutional: Yes: No Distress Neck: Yes: Trachea Midline Cardiovascular: Yes: Regular Rate and Rhythm Respiratory: Yes: Diminished (bilateral) Gastrointestinal: Yes: Soft. No: Tenderness Edema: LLE: 1+, RLE: 1+ Labs: CBC, BMP 08/21/16 05:05 08/21/16 05:05 INR, PTT INR 1.15 (0.82-1.09) H 08/16/16 08:27 - ....Imaging Chest X-ray: Report Reviewed, Image Reviewed (Atelectasis left lung improved. Pulmonary congestion) Problem List - Problems (1) Acute and chronic respiratory failure with hypoxia Code(s): J96.21 - ACUTE AND CHRONIC RESPIRATORY FAILURE WITH HYPOXIA (2) Atrial fibrillation Code(s): I48.91 - UNSPECIFIED ATRIAL FIBRILLATION (3) Pleural effusion Code(s): J90 - PLEURAL EFFUSION, NOT ELSEWHERE CLASSIFIED (4) Pneumonia Code(s): J18.9 - PNEUMONIA, UNSPECIFIED ORGANISM Qualifiers: Pneumonia type: due to unspecified organism Laterality: left Lung location: lower lobe of lung Qualified Code(s): J18.1 - Lobar pneumonia, unspecified organism (5) Acute on chronic diastolic (congestive) heart failure Code(s): I50.33 - ACUTE ON CHRONIC DIASTOLIC (CONGESTIVE) HEART FAILURE Assessment/Plan 75 year old male with acute on chronic hypercapnic, hypoxic respiratory failure , pneumonia (hx of MRSA sepsis) and acute exacerbation COPD and obesity. Hx DVT and pt on anticoagulation. Left lung atelectasis improved. Pt's SaO2 on Bipap improved. Plan: Antibiotics per I.D. Diuretic Prednisone Inhaled bronchodilators O2 to maintain SaO2 greater than 90. NIPPV at night and PRN
--- NOTE | 2016-08-21 19:00 | PN ---
Progress Note, Physician History of Present Illness: patient doing well no complaints - Objective Vital Signs: Vital Signs Temperature 98 F 08/20/16 22:00 Pulse Rate 68 08/21/16 15:41 Respiratory Rate 22 08/21/16 15:41 Blood Pressure 127/59 08/21/16 15:41 O2 Sat by Pulse Oximetry (%) 96 08/21/16 15:30 Constitutional: Yes: Calm, Mild Distress Cardiovascular: Yes: S1, S2 Respiratory: Yes: Poor Air Entry, Rhonchi Gastrointestinal: Yes: Normal Bowel Sounds, Soft Musculoskeletal: Yes: Other Extremities: Yes: Other Neurological: Yes: Alert, Oriented Psychiatric: Yes: Alert, Oriented Labs: CBC, BMP 08/21/16 05:05 08/21/16 05:05 INR, PTT INR 1.15 (0.82-1.09) H 08/16/16 08:27 Assessment/Plan Problem List - Problems (1) Acute and chronic respiratory failure with hypoxia Code(s): J96.21 - ACUTE AND CHRONIC RESPIRATORY FAILURE WITH HYPOXIA (2) Pneumonia Code(s): J18.9 - PNEUMONIA, UNSPECIFIED ORGANISM Qualifiers: Pneumonia type: due to unspecified organism Laterality: left Lung location: lower lobe of lung Qualified Code(s): J18.1 - Lobar pneumonia, unspecified organism (3) Pleural effusion Code(s): J90 - PLEURAL EFFUSION, NOT ELSEWHERE CLASSIFIED (4) Acute on chronic diastolic (congestive) heart failure Code(s): I50.33 - ACUTE ON CHRONIC DIASTOLIC (CONGESTIVE) HEART FAILURE (5) COPD (chronic obstructive pulmonary disease) Code(s): J44.9 - CHRONIC OBSTRUCTIVE PULMONARY DISEASE, UNSPECIFIED (6) Renal failure (ARF), acute on chronic Code(s): N17.9 - ACUTE KIDNEY FAILURE, UNSPECIFIED N18.9 - CHRONIC KIDNEY DISEASE, UNSPECIFIED (7) Diabetes Code(s): E11.9 - TYPE 2 DIABETES MELLITUS WITHOUT COMPLICATIONS Qualifiers: Diabetes mellitus type: type 2 Diabetes mellitus complication status: with kidney complications Diabetes mellitus complication detail: with chronic kidney disease (8) Atrial fibrillation Code(s): I48.91 - UNSPECIFIED ATRIAL FIBRILLATION 9 bilateral cellulitis of the legs legs--rt looks better ,left still with erythema plan continue abx resp support incentive igor physio
== END 2016-08-21 18:50 | DRG 291 ==
LOC: JER 17:51 → JERBED 20:11 → JICU 20:48 → J4W 08-21 15:12
PROVIDERS: ADMIT Internal Medicine; ATTEND Nurse Practitioner Acute Care
PROC: 5A09557 Assistance with Respiratory Ventilation, Greater than 96 Consecutive Hours, Continuous Positive Airway Pressure (ICD-10-PCS; 2016-08-11)
PROC: 0W9B30Z Drainage of Left Pleural Cavity with Drainage Device, Percutaneous Approach (ICD-10-PCS; principal; 2016-08-12)
DX: I13.0 Hypertensive heart and chronic kidney disease with heart failure and stage 1 through stage 4 chronic kidney disease, or unspecified chronic kidney disease (principal); J96.21 Acute and chronic respiratory failure with hypoxia; J18.1 Lobar pneumonia, unspecified organism; I50.43 Acute on chronic combined systolic (congestive) and diastolic (congestive) heart failure; J96.22 Acute and chronic respiratory failure with hypercapnia; N17.9 Acute kidney failure, unspecified; J98.11 Atelectasis; J90 Pleural effusion, not elsewhere classified; J44.1 Chronic obstructive pulmonary disease with (acute) exacerbation; K21.9 Gastro-esophageal reflux disease without esophagitis; E78.5 Hyperlipidemia, unspecified; I25.10 Atherosclerotic heart disease of native coronary artery without angina pectoris; N40.0 Benign prostatic hyperplasia without lower urinary tract symptoms; D64.9 Anemia, unspecified; G47.30 Sleep apnea, unspecified; G62.9 Polyneuropathy, unspecified; E66.9 Obesity, unspecified; E11.22 Type 2 diabetes mellitus with diabetic chronic kidney disease; N18.9 Chronic kidney disease, unspecified; I48.0 Paroxysmal atrial fibrillation; L89.151 Pressure ulcer of sacral region, stage 1; Z95.5 Presence of coronary angioplasty implant and graft; Z86.73 Personal history of transient ischemic attack (TIA), and cerebral infarction without residual deficits; Z86.718 Personal history of other venous thrombosis and embolism; Z87.891 Personal history of nicotine dependence; Z88.0 Allergy status to penicillin; Z86.711 Personal history of pulmonary embolism; Z99.81 Dependence on supplemental oxygen; Z68.31 Body mass index [BMI] 31.0-31.9, adult; Z71.3 Dietary counseling and surveillance; Z79.52 Long term (current) use of systemic steroids; Z86.14 Personal history of Methicillin resistant Staphylococcus aureus infection
CPT/HCPCS: 36415; 36430; 36600; 71010-TC; 71250-TC; 80048; 80053; 80061; 81003; 82375; 82550; 82803; 83050; 83605; 83615; 83721; 83735; 83880; 84100; 84157; 84311; 84484; 85025; 85027; 85379; 85610; 85730; 86850; 86900; 86901; 86922; 87040; 87070; 87075; 87086; 87205; 87633; 87899; 89051; 93005; 93010; 94640; 94660; 97163-GP; 99285-25; J0885; P9038; P9058

== ENCOUNTER 2016-08-23 18:03 | Inpatient (IN) | payer OTHER ==
--- NOTE | 2016-08-23 18:09 | PDOC ---
History of Present Illness - General History Source: Patient, EMS, Old Records Exam Limitations: No Limitations <Edna Ballesteros - Last Filed: 08/23/16 20:48> - History of Present Illness Initial Comments: 08/23/16 19:06 Patient is a 75 year old male from [facility] with a significant medical hx of HTN , HLD, CAD s/p stents x 2 (2014), diastolic heart failure, AFib, COPD, respiratory failure requiring intubation (02/1016-04/2016), GI bleed, h/o DVT and PE who is presenting to the ED for respiratory failure. Patient was recently discharged from ICU admission on 08/21 for respiratory failure and left pleural effusion. Patient was sent over for shortness of breath, weakness, and decreased appetite and liquid intake. The patient has been on continuous BIPAP, with O2Sat of 100% on room air. Per halfway papers, patient has had difficulty sleeping, with some anxiety, and refused meds yesterday morning. <Jolie Paul - Last Filed: 08/23/16 22:54> - General Chief Complaint: Shortness of Breath Stated Complaint: RESPIRATORY DISTRESS Time Seen by Provider: 08/23/16 18:09 Past History - Past Medical History Anemia: Yes Asthma: No Cancer: No Cardiac Disorders: Yes (CAD - 2 cardiac stents placed 03/26/2015) CVA: Yes (tia) COPD: Yes (resp failure) CHF: Yes Dementia: No Diabetes: Yes GI Disorders: Yes (H/O mild GI bleed,gerd) Disorders: No HTN: Yes Hypercholesterolemia: Yes Liver Disease: No Seizures: No Thyroid Disease: No - Surgical History Abdominal Surgery: No Appendectomy: No Cardiac Surgery: Yes (2 cardiac stents) Cholecystectomy: No Lung Surgery: No Neurologic Surgery: No Orthopedic Surgery: No - Immunization History Immunization Up to Date: Yes - Psycho/Social/Smoking Cessation Hx Anxiety: No Suicidal Ideation: No Smoking Status: Yes Smoking History: Unknown if ever smoked Have you smoked in the past 12 months: No Number of Cigarettes Smoked Daily: 0 If you are a former smoker, when did you quit?: 6 years 'Breaking Loose' booklet given: 04/01/15 Hx Alcohol Use: No Drug/Substance Use Hx: No Substance Use Type: None Hx Substance Use Treatment: No <Edna Ballesteros - Last Filed: 08/23/16 20:48> <Jolie Paul - Last Filed: 08/23/16 22:54> - Past Medical History Allergies/Adverse Reactions: Allergies Allergy/AdvReac Type Severity Reaction Status Date / Time Penicillins Allergy Verified 08/23/16 18:44 Home Medications: Ambulatory Orders Aa/Hydrolyzed Collagen, Whey [Lps Neutral Flavor Liquid] 960 ml PO BID 08/11/16 Acetaminophen 650 mg PO Q6H PRN 08/11/16 Albuterol 2.5/Ipratropium 0.5 [Duoneb -] 1 neb IH TID 08/11/16 Amlodipine Besylate [Norvasc -] 10 mg PO DAILY 08/11/16 Apixaban [Eliquis] 2.5 mg PO BID 08/11/16 Aspirin [Aspirin EC] 81 mg PO DAILY 08/11/16 Bupropion HCl [Bupropion Xl] 150 mg PO DAILY 08/11/16 Docusate Sodium [Colace -] 100 mg PO BID 08/11/16 Duloxetine HCl 60 mg PO DAILY 08/11/16 Epoetin Keith [Epogen] 10,000 unit IM MOWEFR 08/11/16 Ferrous Sulfate 325 mg PO BID 08/11/16 Fluticasone/Vilanterol [Breo Ellipta 100-25 Mcg INH] 1 each IH DAILY 08/11/16 Guaifenesin [Mucinex] 600 mg PO Q12H 08/11/16 Mineral Oil/Hydrophil Petrolat [Aquaphor Healing Ointment] 50 gm TP BID Nystatin Powder [Nystop Powder -] 60 gm TP DAILY 08/11/16 Pantoprazole Sodium [Protonix] 40 mg PO DAILY 08/11/16 Polyethylene Glycol 3350 [Miralax 119 gm Btl -] 17 gm PO DAILY 08/11/16 Prednisone 30 mg PO DAILY 08/11/16 Sennosides [Evac-U-Gen] 17.2 mg PO DAILY 08/11/16 Sodium Chloride Nasal [place] [[place] Nasal [place] -] 2 spray NS Q12H PRN 08/23 Tamsulosin HCl [Flomax] 0.4 mg PO DAILY 08/11/16 Acetylcysteine Po/INH 20% [Mucomyst 20 Oral / INH Use Only*] 600 mg NEB QIDR # 120 vial 08/21/16 Atorvastatin Ca [Lipitor] 20 mg PO HS #30 tablet 08/21/16 Metoprolol Tartrate [Lopressor -] 25 mg PO BID #60 tablet 08/21/16 Torsemide 80 mg PO BID #60 cap 08/21/16 Review of Systems - Review of Systems Comments:: 08/23/16 19:07 GENERAL/CONSTITUTIONAL: Loss of appetite, weakness. No fever or chills. No weakness. HEAD, EYES, EARS, NOSE AND THROAT: No change in vision. No ear pain or discharge. No sore throat. CARDIOVASCULAR: No chest pain. RESPIRATORY: Shortness of breath. No cough, wheezing, or hemoptysis. GASTROINTESTINAL: No nausea, vomiting, diarrhea or constipation. GENITOURINARY: No dysuria, frequency, or change in urination. MUSCULOSKELETAL: No joint or muscle swelling or pain. No neck or back pain. ENDOCRINE: No increased thirst. No abnormal weight change. SKIN: No rash NEUROLOGIC: No headache, vertigo, loss of consciousness, or change in strength/ sensation. <Jolie Paul - Last Filed: 08/23/16 22:54> *Physical Exam - Vital Signs Last Vital Signs Temp Pulse Resp BP Pulse Ox 98.8 F 90 26 H 111/91 98 08/23/16 18:23 08/23/16 18:23 08/23/16 18:23 08/23/16 18:23 08/23/16 18:23 - Physical Exam Comments: 08/23/16 19:09 GENERAL: Awake, alert, and fully oriented, in no acute distress HEAD: No signs of trauma EYES: PERRLA, EOMI, sclera anicteric, conjunctiva clear ENT: Auricles normal inspection, hearing grossly normal, nares patent, oropharynx clear without exudates. Moist mucosa NECK: Normal ROM, supple, no lymphadenopathy, JVD, or masses LUNGS: Respiratory distress with accessory muscle use. Speaking in full sentences. No wheezes, and no crackles HEART: Regular rate and rhythm, normal S1 and S2, no murmurs, rubs or gallops ABDOMEN: Obese. Soft, nontender, normoactive bowel sounds. No guarding, no rebound. No masses EXTREMITIES: Normal range of motion, no edema. No clubbing or cyanosis. No cords, erythema, or tenderness NEUROLOGICAL: Cranial nerves II through XII grossly intact. Normal speech, normal gait SKIN: Warm, Dry, normal turgor, no rashes or lesions noted. HEMATOLOGIC/LYMPHATIC: No anemia, easy bleeding, or history of blood clots. ALLERGIC/IMMUNOLOGIC: No hives or skin allergy. <Jolie Paul - Last Filed: 08/23/16 22:54> ED Treatment Course - LABORATORY CBC & Chemistry Diagram: 08/23/16 18:59 08/23/16 18:59 <Edna Ballesteros - Last Filed: 08/23/16 20:48> - LABORATORY CBC & Chemistry Diagram: 08/23/16 18:59 08/23/16 18:59 - RADIOLOGY Radiograph Interpretation: 08/23/16 19:40 Chest X-Ray Impression: Improving congestion with increasing right pleural effusion since Reported By: Toñito Fitch MD - Medications Given in the ED: ED Medications Discontinued Medications Generic Name Dose Route Start Last Admin Trade Name Freq PRN Reason Stop Dose Admin Methylprednisolone Sodium Succinate 125 mg 08/23/16 18:48 08/23/16 18:56 Solu-Medrol - IVPB 08/23/16 18:49 125 mg ONCE ONE Administration <Jolie Paul - Last Filed: 08/23/16 22:54> Medical Decision Making - Medical Decision Making 08/23/16 19:57 75-year-old male with a complicated past medical history including hypertension , coronary artery disease, atrial fibrillation, COPD, CHF and a chronic pleural effusion who presents to the emergency department from the halfway with shortness of breath today on CPAP by EMS. Differential diagnosis includes but is not limited to: Pneumonia, CHF exacerbation, COPD exacerbation, anemia, electrolyte abnormality, toxic/metabolic derangement. Plan: 1. Ventilatory support with BiPAP 2. EKG 3. DuoNeb treatment 4. Solu-Medrol 4. Chest x-ray 5. Labs 6. Observe and reevaluate 08/23/16 20:17 Addendum: Labs were reviewed and are noted in the EMR. The BUN/creatinine creatinine are elevated from baseline at 103 and 3.6. He has an elevated white blood cell count of 14.1 and the chest x-ray shows a larger right pleural effusion but improved congestion. The patient appears to be comfortable on the BiPAP at this time. However given his complicated medical history and multiorgan involvement Will admit to the ICU. The patient has been pancultured and been given Levaquin and vancomycin as he is pending ALLERGIC for a hospital- acquired pneumonia. <Edna Ballesteros - Last Filed: 08/23/16 20:48> - Critical Care Time Total Critical Care Time (minutes): 31 Critical Care Statement: The care of this patient involved high complexity decision making to prevent further life threatening deterioration of the patient 's condition and/or to evalute & treat vital organ system(s) failure or risk of failure. <Jolie Paul - Last Filed: 08/23/16 22:54> *DC/Admit/Observation/Transfer - Discharge Dispostion Admit: Yes - Attestations Physician Attestion: 08/23/16 19:58 I, Dr. Edna Ballesteros, attest that the scribes documentation that appears above has been prepared under my direction and personally reviewed by me in its entirety. I confirmed that the note above accurately reflects all work, treatment, procedures, and medical decision-making performed by me. <Edna Ballesteros - Last Filed: 08/23/16 20:48> - Attestations Scribe Attestion: 08/23/16 19:11 Documentation prepared by Jolie Paul, acting as director of medical services for Edna Ballesteros MD. <Jolie Paul - Last Filed: 08/23/16 22:54> Diagnosis at time of Disposition: Shortness of breath, Acute and chronic respiratory failure with hypoxia, Pneumonia, Acute kidney injury - Discharge Dispostion Condition at time of disposition: Good
[2016-08-23] MEDS ORDERED: ALBUTEROL SO4 2.5/IPRATROPIUM 0.5 INH SOL 3 ML VIAL.NEB. NEB ONE (18:19)
[2016-08-23] MEDS ORDERED: methylPREDNISolone NA SUCC 125 MG/2 ML VIAL ONE (18:20)
[2016-08-23] MEDS ORDERED: methylPREDNISolone NA SUCC 125 MG/2 ML VIAL IVPB ONE (18:48)
[2016-08-23] MEDS: ALBUTEROL SO4 2.5/IPRATROPIUM 0.5 INH SOL 3 ML VIAL.NEB. NEB SCH ×2 (18:56→19:44)
[2016-08-23 19:21] LABS: BASOPHIL 0.1 % (0-2.0); MCH 27.9 pg (25.7-33.7); MCHC 31.7 g/dl (32.0-35.9); MEAN CELL VOLUME 87.9 fl (80-96); MEAN PLT VOLUME 7.8 fl (7.5-11.1); NEUTROPHILS 94.4 % (42.8-82.8); PLATELET COUNT 320 K/MM3 (134-434); RDW 16.1 % (11.9-15.9); WHITE BLOOD COUNT 14.1 K/mm3 (4.0-10.0)
[2016-08-23 19:46] LABS: ALBUMIN 2.4 g/dl (3.4-5.0); BILIRUBIN,TOTAL 0.4 mg/dL (0.2-1.0); CALCIUM 8.6 mg/dL (8.5-10.1); COCKROFT - GAULT 25.7; CREATININE 3.6 mg/dL (0.7-1.3); MAGNESIUM 3.4 mg/dL (1.8-2.4); PHOSPHOROUS 8.4 mg/dL (2.5-4.9); TOT PROT 5.7 g/dl (6.4-8.2)
[2016-08-23 19:47] LABS: TROPONIN I < 0.02 ng/ml (0.00-0.05)
[2016-08-23 19:48] LABS: INR 1.23 (0.82-1.09); PROTHROMBIN TIME (PATIENT) 13.6 SEC (9.98-11.88)
[2016-08-23 19:51] LABS: ACTIVATED PTT 33.2 SECONDS (26.9-34.4)
[2016-08-23] MEDS ORDERED: VANCOMYCIN 1,000 MG in DEXTROSE 5%-WATER - 250 ML IVPB ONE (19:55)
[2016-08-23] MEDS ORDERED: LEVOFLOXACIN 750 MG IVPB 150 ML IVPB ONE ×2 (19:55→21:02)
[2016-08-23 20:32] LABS: PLATELET ESTIMATE ADEQUATE (NORMAL)
[2016-08-23 20:44] LABS: ARTERIAL BLD GAS O2 SATURATION 98.3 % (90-98.9); ARTERIAL BLOOD GAS BASE EXCESS 4.4 meq/l (-2-2); ARTERIAL BLOOD GAS HCO3 30.6 meq/L (22-26); ARTERIAL BLOOD GAS pH 7.34 (7.35-7.45)
[2016-08-23 20:49] LABS: ALLENS TEST POSITIVE; ART PUNCT SITE LEFT RADIAL; LPM/O2% 100%; METHEMOGLOBIN 0.7 % (0.4-1.5); PT. ON O2? YES; TYPE OF O2 BI-PAP; VENT RATE 18; VT/PRESS 18/8
[2016-08-23 20:51] LABS: URINE APPEARANCE SLCLOUDY; URINE BILIRUBIN NEGATIVE (NEGATIVE); URINE BLOOD NEGATIVE (NEGATIVE); URINE COLOR YELLOW; URINE GLUCOSE (UA) NEGATIVE (NEGATIVE); URINE KETONE NEGATIVE (NEGATIVE); URINE LEUK ESTERASE NEGATIVE (NEGATIVE); URINE NITRITE NEGATIVE (NEGATIVE); URINE PROTEIN NEGATIVE (NEGATIVE); URINE UROBILINOGEN NEGATIVE E.U./dl (0.2-1.0)
--- NOTE | 2016-08-23 20:55 | PN ---
<Nakia Foster - Last Filed: 08/23/16 20:55> Teaching Attending Note Name of Resident: Zacherykervin Bobashlee <Jasmine Torres - Last Filed: 09/06/16 20:39> Teaching Attending Note ATTENDING PHYSICIAN STATEMENT I saw and evaluated the patient. I reviewed the resident's note and discussed the case with the resident. I agree with the resident's findings and plan as documented. SUBJECTIVE: 75 yo M from [facility] with a PMHx of respiratory failure requiring intubation ( 02/1016-04/2016) who is presents to the ED for respiratory failure. Patient was recently discharged from ICU admission on 08/21 for respiratory failure and left pleural effusion. Patient was sent to the ED for evaluation for for shortness of breath, weakness, and decreased appetite and liquid intake. The patient has been on continuous BIPAP, with O2Sat of 100% on room air. As per care home papers, patient has had difficulty sleeping, with some anxiety, and refused meds yesterday morning. PMHx: HTN, HLD, CAD s/p stents x 2 (2014), diastolic heart failure, AFib, COPD, GI bleed, h/o DVT and PE PSHx: Cardiac stent placement Social Hx: Former smoker Allergies: Penicillins OBJECTIVE: Last Vital Signs Temp Pulse Resp BP Pulse Ox 97.4 F L 88 29 H 116/68 100 08/24/16 00:00 08/24/16 00:00 08/24/16 00:00 08/24/16 00:00 08/23/16 22:47 GENERAL: Awake, alert, and fully oriented, in no acute distress HEENT: Atraumatic. PERRLA, EOMI. Moist mucosa. No JVD LUNGS: No distress, speaks full sentences, clear to auscultation bilaterally HEART: Regular rate and rhythm, normal S1 and S2, no murmurs, rubs or gallops, peripheral pulses normal and equal bilaterally. ABDOMEN: Soft, nontender, normoactive bowel sounds. No guarding, no rebound. No masses EXTREMITIES: Normal inspection, Normal range of motion, no edema. No clubbing or cyanosis. NEUROLOGICAL: Cranial nerves II through XII grossly intact. Normal speech, normal gait, no focal sensorimotor deficits SKIN: Warm, Dry, normal turgor, no rashes or lesions noted. CBCD WBC 14.1 K/mm3 (4.0-10.0) H D 08/23/16 18:59 RBC 3.46 M/mm3 (4.00-5.60) L D 08/23/16 18:59 Hgb 9.6 GM/dL (11.7-16.9) L D 08/23/16 18:59 Hct 30.4 % (35.4-49) L D 08/23/16 18:59 MCV 87.9 fl (80-96) 08/23/16 18:59 MCHC 31.7 g/dl (32.0-35.9) L 08/23/16 18:59 RDW 16.1 % (11.9-15.9) H 08/23/16 18:59 Plt Count 320 K/MM3 (134-434) 08/23/16 18:59 MPV 7.8 fl (7.5-11.1) 08/23/16 18:59 CMP Sodium 139 mmol/L (136-145) 08/23/16 18:59 Potassium 5.2 mmol/L (3.5-5.1) H D 08/23/16 18:59 Chloride 93 mmol/L (98-107) L 08/23/16 18:59 Carbon Dioxide 33 mmol/L (21-32) H 08/23/16 18:59 Anion Gap 13 (8-16) 08/23/16 18:59 BUN 103 mg/dL (7-18) H D 08/23/16 18:59 Creatinine 3.6 mg/dL (0.7-1.3) H D 08/23/16 18:59 Creat Clearance w eGFR 16.70 (>60) 08/23/16 18:59 Calcium 8.6 mg/dL (8.5-10.1) 08/23/16 18:59 Total Bilirubin 0.4 mg/dL (0.2-1.0) D 08/23/16 18:59 AST 12 U/L (15-37) L D 08/23/16 18:59 ALT 9 U/L (12-78) L 08/23/16 18:59 Alkaline Phosphatase 69 U/L (45-117) 08/23/16 18:59 Total Protein 5.7 g/dl (6.4-8.2) L 08/23/16 18:59 Albumin 2.4 g/dl (3.4-5.0) L 08/23/16 18:59 Chest X-Ray Impression: Improving congestion with increasing right pleural effusion since Reported By: Toñito Fitch MD ASSESSMENT AND PLAN: 1.Decompensated CHF with worsening R sided pleural effusion with possible infiltrate admitted for acute on chronic hypoxic respiratory failure with HCAP. Place on BiPAP Pulmonary consult in AM Aztreonam Tobramycin ICU consult appreciated Vent management as per ICU Repeat CBC Follow BMP in AM Monitor Is and Os Restart Lasix in AM 2.KARLOS --possible secondary to over diuresis Documentation prepared by Jasmine Torres, acting as medical scientist for Nakia Foster MD
[2016-08-23] MEDS ORDERED: VANCOMYCIN 1 GRAM (PRE-DOCKED) 250 ML IVPB ONE (21:02)
--- NOTE | 2016-08-23 21:30 | HP ---
CHIEF COMPLAINT: Shortness of breath PCP: Dr Sotomayor HISTORY OF PRESENT ILLNESS: 75 year old male from [facility] with pmh of HTN, HPLD, CAD s/p stents x2 in 2014, diastolic CHF, AFIB, COPD, DVT and PE, Acute respiratory failure requiring intubation presented to the ED with complaint of shortness of breath. The patient was recently discharged from [facility] where he was in the ICU for Resp failure, pleural effusion and pneumonia. He was treated with 7 days of Meropenem and had a Chest tube 08/12/16. This time around, at the assisted, the patient has been non-compliant to his medication, had poor appetite, decreased po intake both solid and fluid. Pt has been very anxious and also had insomnia. Pt denies fever, chills, cough, productive sputum. Denies chest pain, palpitation, n/v. No dizziness or confusion, no lightheadedness. Pt is on apixiban BID ER course was notable for: (1) Duoned, Solumedrol (2) Levaquin IV, VAncomycin IV (3) Blood culture, urine culture Recent Travel: none PAST MEDICAL HISTORY: HTN, HLD, CAD s/p stents x 2 (2014), diastolic heart failure, AFib, COPD, GI bleed, h/o DVT and PE, Acute respiratory failure requiring intubation PAST SURGICAL HISTORY: Cardiac stent placement Social History: Smoking: Former smoker 80 pack years, quit 10 years ago Alcohol: deneis Drugs: denies Family History: non contributory Allergies Penicillins Allergy (Verified 08/23/16 18:44) HOME MEDICATIONS: Home Medications Medication Instructions Recorded Aa/Hydrolyzed Collagen, Whey [Lps 960 ml PO BID 08/11/16 Neutral Flavor Liquid] Acetaminophen 650 mg PO Q6H PRN 08/11/16 Albuterol 2.5/Ipratropium 0.5 1 neb IH TID 08/11/16 [Duoneb -] Amlodipine Besylate [Norvasc -] 10 mg PO DAILY 08/11/16 Apixaban [Eliquis] 2.5 mg PO BID 08/11/16 Aspirin [Aspirin EC] 81 mg PO DAILY 08/11/16 Bupropion HCl [Bupropion Xl] 150 mg PO DAILY 08/11/16 Docusate Sodium [Colace -] 100 mg PO BID 08/11/16 Duloxetine HCl 60 mg PO DAILY 08/11/16 Epoetin Keith [Epogen] 10,000 unit IM MOWEFR 08/11/16 Ferrous Sulfate 325 mg PO BID 08/11/16 Fluticasone/Vilanterol [Breo 1 each IH DAILY 08/11/16 Ellipta 100-25 Mcg INH] Guaifenesin [Mucinex] 600 mg PO Q12H 08/11/16 Mineral Oil/Hydrophil Petrolat 50 gm TP BID 08/11/16 [Aquaphor Healing Ointment] Nystatin Powder [Nystop Powder -] 60 gm TP DAILY 08/11/16 Pantoprazole Sodium [Protonix] 40 mg PO DAILY 08/11/16 Polyethylene Glycol 3350 [Miralax 17 gm PO DAILY 08/11/16 119 gm Btl -] Prednisone 30 mg PO DAILY 08/11/16 Sennosides [Evac-U-Gen] 17.2 mg PO DAILY 08/11/16 Sodium Chloride Nasal [place] [[place] 2 spray NS Q12H PRN 08/11/16 [place] Nasal [place] -] Tamsulosin HCl [Flomax] 0.4 mg PO DAILY 08/11/16 Acetylcysteine Po/INH 20% 600 mg NEB QIDR #120 vial 08/21/16 [Mucomyst 20 Oral / INH Use Only*] Atorvastatin Ca [Lipitor] 20 mg PO HS #30 tablet 08/21/16 Metoprolol Tartrate [Lopressor -] 25 mg PO BID #60 tablet 08/21/16 Torsemide 80 mg PO BID #60 cap 08/21/16 REVIEW OF SYSTEMS CONSTITUTIONAL: Absent: fever, chills, diaphoresis, generalized weakness, malaise, loss of appetite, weight change HEENT: Absent: rhinorrhea, nasal congestion, throat pain, throat swelling, difficulty swallowing, mouth swelling, ear pain, eye pain, visual changes CARDIOVASCULAR: Absent: chest pain, syncope, palpitations, irregular heart rate, lightheadedness , peripheral edema RESPIRATORY: shortness of breath, dyspnea with exertion, orthopnea Absent: cough, wheezing, stridor, hemoptysis GASTROINTESTINAL: Absent: abdominal pain, abdominal distension, nausea, vomiting, diarrhea, constipation, melena, hematochezia GENITOURINARY: Absent: dysuria, frequency, urgency, hesitancy, hematuria, flank pain, genital pain MUSCULOSKELETAL: back pain, Absent: myalgia, arthralgia, joint swelling,, neck pain SKIN: Absent: rash, itching, pallor HEMATOLOGIC/IMMUNOLOGIC: Absent: easy bleeding, easy bruising, lymphadenopathy, frequent infections ENDOCRINE: Absent: unexplained weight gain, unexplained weight loss, heat intolerance, cold intolerance NEUROLOGIC: Absent: headache, focal weakness or paresthesias, dizziness, unsteady gait, seizure, mental status changes, bladder or bowel incontinence PSYCHIATRIC: Absent: anxiety, depression, suicidal or homicidal ideation, hallucinations. PHYSICAL EXAMINATION Vital Signs - 24 hr 08/23/16 08/23/16 08/23/16 18:05 18:20 18:23 Temperature 98.8 F Pulse Rate 86 86 90 Pulse Rate [ Apical] Respiratory 18 26 H Rate Blood Pressure 111/61 111/91 Blood Pressure [Left Arm] O2 Sat by Pulse 100 97 98 Oximetry (%) 08/23/16 08/23/16 18:30 21:16 Temperature Pulse Rate Pulse Rate [ 88 Apical] Respiratory 20 Rate Blood Pressure Blood Pressure 118/64 [Left Arm] O2 Sat by Pulse 98 90 L Oximetry (%) GENERAL: Awake, alert, and fully oriented, in moderate acute distress. HEAD: Normal with no signs of trauma. EYES: Pupils equal, round and reactive to light, extraocular movements intact, sclera anicteric, conjunctiva clear. No lid lag. EARS, NOSE, THROAT: Ears normal, nares patent, oropharynx clear without exudates. dry mucous membranes. NECK: Normal range of motion, supple without lymphadenopathy, JVD, or masses. LUNGS: Breath sounds diminished on right mid and lower lung with scattered ronchi to auscultation bilaterally, bibasilar crackles. No wheezes HEART: Regular rate and rhythm, normal S1 and S2 with systolic murmur, rub or gallop. ABDOMEN: Soft, obese, nontender, not distended, normoactive bowel sounds, no guarding, no rebound, no masses. No hepatomegaly or splenomegaly. MUSCULOSKELETAL: Normal range of motion at all joints. No bony deformities or tenderness. No CVA tenderness. UPPER EXTREMITIES: 2+ pulses, warm, well-perfused. No cyanosis. No clubbing. No peripheral edema. LOWER EXTREMITIES: 2+ pulses, warm, well-perfused. No calf tenderness. No peripheral edema. NEUROLOGICAL: Cranial nerves II-XII intact. Normal speech. Normal gait. PSYCHIATRIC: Cooperative. Good eye contact. Appropriate mood and affect. SKIN: Warm, dry, normal turgor, no rashes or lesions noted, normal capillary refill. b/l lower ext with Skin discoloration with dark yellow patches and venous stasis . Laboratory Results - last 24 hr 08/23/16 08/23/16 08/23/16 18:59 18:59 18:59 WBC 14.1 H D RBC 3.46 L D Hgb 9.6 L D Hct 30.4 L D MCV 87.9 MCHC 31.7 L RDW 16.1 H Plt Count 320 MPV 7.8 Neutrophils % 94.4 H Lymphocytes % 3.5 L D Monocytes % 2.0 L Eosinophils % 0.0 D Basophils % 0.1 Platelet Estimate Adequate Platelet Comment No clumping noted INR PTT (Actin FS) Puncture Site ABG pH ABG pCO2 at Pt Temp ABG pO2 at Pt Temp ABG HCO3 ABG O2 Sat (Measured) ABG O2 Content ABG Base Excess Issac Test Carboxyhemoglobin Methemoglobin O2 Delivery Device Oxygen Flow Rate Vent Mode Vent Rate PEEP Pressure Support Vent Sodium 139 Potassium 5.2 H D Chloride 93 L Carbon Dioxide 33 H Anion Gap 13 BUN 103 H D Creatinine 3.6 H D Creat Clearance w eGFR 16.70 Random Glucose 129 H D Lactic Acid 2.31 H* Calcium 8.6 Phosphorus Magnesium Total Bilirubin 0.4 D AST 12 L D ALT 9 L Alkaline Phosphatase 69 Creatine Kinase Troponin I B-Natriuretic Peptide Total Protein 5.7 L Albumin 2.4 L Lipase Urine Color Urine Appearance Urine pH Urine Protein Urine Glucose (UA) Urine Ketones Urine Blood Urine Nitrite Urine Bilirubin Urine Urobilinogen Ur Leukocyte Esterase 08/23/16 08/23/16 08/23/16 18:59 18:59 20:26 WBC RBC Hgb Hct MCV MCHC RDW Plt Count MPV Neutrophils % Lymphocytes % Monocytes % Eosinophils % Basophils % Platelet Estimate Platelet Comment INR 1.23 H PTT (Actin FS) 33.2 Puncture Site ABG pH ABG pCO2 at Pt Temp ABG pO2 at Pt Temp ABG HCO3 ABG O2 Sat (Measured) ABG O2 Content ABG Base Excess Issac Test Carboxyhemoglobin Methemoglobin O2 Delivery Device Oxygen Flow Rate Vent Mode Vent Rate PEEP Pressure Support Vent Sodium Potassium Chloride Carbon Dioxide Anion Gap BUN Creatinine Creat Clearance w eGFR Random Glucose Lactic Acid Calcium Phosphorus 8.4 H D Magnesium 3.4 H Total Bilirubin AST ALT Alkaline Phosphatase Creatine Kinase 20 L Troponin I < 0.02 B-Natriuretic Peptide 4010.08 H Total Protein Albumin Lipase 105 Urine Color Yellow Urine Appearance Slcloudy Urine pH 5.0 Urine Protein Negative Urine Glucose (UA) Negative Urine Ketones Negative Urine Blood Negative Urine Nitrite Negative Urine Bilirubin Negative Urine Urobilinogen Negative Ur Leukocyte Esterase Negative 08/23/16 20:31 WBC RBC Hgb Hct MCV MCHC RDW Plt Count MPV Neutrophils % Lymphocytes % Monocytes % Eosinophils % Basophils % Platelet Estimate Platelet Comment INR PTT (Actin FS) Puncture Site Left radial ABG pH 7.34 L ABG pCO2 at Pt Temp 58.5 H ABG pO2 at Pt Temp 112.0 H D ABG HCO3 30.6 H ABG O2 Sat (Measured) 98.3 ABG O2 Content 12.9 L ABG Base Excess 4.4 H Issac Test Positive Carboxyhemoglobin 2.0 Methemoglobin 0.7 O2 Delivery Device Bi-pap Oxygen Flow Rate 100% Vent Mode S/t Vent Rate 18 PEEP 0.0 Pressure Support Vent 18/8 Sodium Potassium Chloride Carbon Dioxide Anion Gap BUN Creatinine Creat Clearance w eGFR Random Glucose Lactic Acid Calcium Phosphorus Magnesium Total Bilirubin AST ALT Alkaline Phosphatase Creatine Kinase Troponin I B-Natriuretic Peptide Total Protein Albumin Lipase Urine Color Urine Appearance Urine pH Urine Protein Urine Glucose (UA) Urine Ketones Urine Blood Urine Nitrite Urine Bilirubin Urine Urobilinogen Ur Leukocyte Esterase CBC, BMP 08/23/16 18:59 08/23/16 18:59 Laboratory Tests 08/23/16 08/23/16 08/23/16 18:59 18:59 18:59 Neutrophils % 94.4 H INR PTT (Actin FS) ABG pH ABG pCO2 at Pt Temp ABG pO2 at Pt Temp ABG HCO3 O2 Delivery Device Oxygen Flow Rate Vent Rate Pressure Support Vent Lactic Acid 2.31 H* Phosphorus Magnesium Troponin I B-Natriuretic Peptide Albumin 2.4 L Lipase Urine Nitrite Ur Leukocyte Esterase 08/23/16 08/23/16 08/23/16 18:59 18:59 20:26 Neutrophils % INR 1.23 H PTT (Actin FS) 33.2 ABG pH ABG pCO2 at Pt Temp ABG pO2 at Pt Temp ABG HCO3 O2 Delivery Device Oxygen Flow Rate Vent Rate Pressure Support Vent Lactic Acid Phosphorus 8.4 H D Magnesium 3.4 H Troponin I < 0.02 B-Natriuretic Peptide 4010.08 H Albumin Lipase 105 Urine Nitrite Negative Ur Leukocyte Esterase Negative 08/23/16 20:31 Neutrophils % INR PTT (Actin FS) ABG pH 7.34 L ABG pCO2 at Pt Temp 58.5 H ABG pO2 at Pt Temp 112.0 H D ABG HCO3 30.6 H O2 Delivery Device Bi-pap Oxygen Flow Rate 100% Vent Rate 18 Pressure Support Vent 18/8 Lactic Acid Phosphorus Magnesium Troponin I B-Natriuretic Peptide Albumin Lipase Urine Nitrite Ur Leukocyte Esterase CXR 08/23/16: Improving congestion with increasing right pleural effusion since . ASSESSMENT/PLAN: 75 year old male from [facility] with pmh of HTN, HPLD, CAD s/p stents x2 in 2014, diastolic CHF, AFIB, COPD, DVT and PE, Acute respiratory failure requiring intubation recently discharged from the hospital on 08/21/16 for HCAP/ pleural effusion presented to the ED with complaint of shortness of breath. Pt was found to have worsening in right pleural effusion, leukocytosis. Acute hypoxic respiratory failure CXR showed worsening right pleural effusion BiPAP 18/8, Fio2 100% titrate fio2 down Solumedrol 125 in ED Solumedrol 40mg Q6h Duoneb Q6h albuterol PRn consider thoracentesis Consider diuretics CXR in am ABG in am Leukocytosis r/o HCAP, Sepsis WBC 14.1 received Vancomycin and Levaquin in ED CXR did not show focal infiltrates but pleural effusion Blood culture urine culture sputum culture sputum gram stain urine for pneumonia antigen UA Vanco though in am consider aztreonam, tobramycin for gram negative coverage ID consult Dr Szymanski COPD exacerbation Solumedrol 40mg Q6h Duoneb Q6h albuterol PRn KARLOS likely due to dehydration Cr 3.6 BUn 103 Poor feeding in last 3 days Consider IV fluid Urine sodium Urine Creatine Urine lytes calculate FENA US renal Diabetes Novolog sliding scale BGM ACHS BPH Flomax CAD s/p stent Aspirin H/o DVT and PE On Eliquis HPLD lipitor 20mg po qhs FEN Fluid: none Electrolytes: chemistry in am Nutrition: NPO for now on BIPAP, cardiac/diabetic diet when respiratory status improves DVT prophylaxis: Eliquis Disposition: admit to ICU Visit type - Emergency Visit Emergency Visit: Yes ED Registration Date: 08/23/16 Care time: The patient presented to the Emergency Department on the above date and was hospitalized for further evaluation of their emergent condition. - New Patient This patient is new to me today: Yes Date on this admission: 08/24/16 - Critical Care Critical Care patient: Yes Total Critical Care Time (in minutes): 60 Critical Care Statement: The care of this patient involved high complexity decision making to prevent further life threatening deterioration of the patient 's condition and/or to evalute & treat vital organ system(s) failure or risk of failure.
[2016-08-23] MEDS ORDERED: HEPARIN NA (PORCINE) 5,000 UNITS/ML 1ML VIAL SQ SCH (22:00)
[2016-08-23] MEDS ORDERED: CHLORHEXIDINE GLUCONATE 4% CLEANSER FOR DECOLONIZATION TP SCH (22:00)
[2016-08-23 22:56] VITALS: BMI 31.6
[2016-08-23] MEDS: INSULIN SLIDING SCALE (NOVOLOG) 1 VIAL SQ SCH (23:18)
[2016-08-23] MEDS: MUPIROCIN 2% TOPICAL OINTMENT FOR DECOLONIZATION NS SCH (23:19)
[2016-08-24] MEDS ORDERED: SODIUM CHLORIDE NASAL SPRAY 44 ML BOTTLE NS PRN ×2 (00:36→13:17)
[2016-08-24] MEDS ORDERED: guaiFENesin 600 MG TABLET.ER (FP) PO PRN ×2 (00:36→13:17)
[2016-08-24] MEDS ORDERED: SENNOSIDES 8.6MG TABLET (FP) PO PRN ×2 (00:36→13:17)
[2016-08-24] MEDS ORDERED: SODIUM CHLORIDE 1,000 ML IV SCH (00:45)
--- NOTE | 2016-08-24 01:07 | CONSULT ---
Consult Consult Specialty:: Pulmonary Critical Care Reason for Consultation:: Acute hypoxic Respiratory Failure - History of Present Illness History of Present Illness: Patient is a 75 year old male from [facility] with a significant medical hx of HTN , HLD, CAD s/p stents x 2 (2014), diastolic heart failure, AFib, COPD, respiratory failure requiring intubation (02/1016-04/2016), GI bleed, h/o DVT and PE who presented to the ED for respiratory failure. Patient was recently discharged from ICU admission on 08/21 for respiratory failure and left pleural effusion. Patient was sent over from [facility] for shortness of breath, weakness , and decreased appetite, decreased liquid intake, difficulty sleeping anxiety and refusing medications. Pt not compliant with bipap at [place] and pt noted to be hypoxic in ED with SPO2 low 80's. In the Ed pt was placed on Bipap with improvement in his Spo2 to 100%. CXR with markedly increased right pleural effusion and questionnable new infiltrate on CXR, BNP ~4000. Given clinical picture and requirement of continuous Bipap, pt admitted to ICU for possible HAP. Pt was young cultured in ED and started on Vanco and levaquin. 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: Peripheral Neuropathy Cardio/Vascular: Yes: CAD, CHF (diastolic), HTN, Hyperlipdemia Pulmonary: Yes: COPD, O2 Dependent, Sleep Apnea Renal/: Yes: Renal Inusuff, Renal Calculi Psych: Yes: Anxiety Dermatology: Yes: Cellulitis (cellulitis during 02/2016 admission) Additional Medical History: Obesity - Past Surgical History Past Surgical History: Yes: Stent - Alcohol/Substance Use Hx Alcohol Use: No History of Substance Use: reports: None - Smoking History Smoking history: Unknown if ever smoked Have you smoked in the past 12 months: No Aproximately how many cigarettes per day: 0 If you are a former smoker, when did you quit?: 6 years - Social History ADL: Independent 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 History of Recent Travel: No Home Medications - Allergies Allergies/Adverse Reactions: Allergies Allergy/AdvReac Type Severity Reaction Status Date / Time Penicillins Allergy Verified 08/23/16 18:44 - Home Medications Home Medications: Ambulatory Orders Aa/Hydrolyzed Collagen, Whey [Lps Neutral Flavor Liquid] 960 ml PO BID 08/11/16 Acetaminophen 650 mg PO Q6H PRN 08/11/16 Albuterol 2.5/Ipratropium 0.5 [Duoneb -] 1 neb IH TID 08/11/16 Amlodipine Besylate [Norvasc -] 10 mg PO DAILY 08/11/16 Apixaban [Eliquis] 2.5 mg PO BID 08/11/16 Aspirin [Aspirin EC] 81 mg PO DAILY 08/11/16 Bupropion HCl [Bupropion Xl] 150 mg PO DAILY 08/11/16 Docusate Sodium [Colace -] 100 mg PO BID 08/11/16 Duloxetine HCl 60 mg PO DAILY 08/11/16 Epoetin Keith [Epogen] 10,000 unit IM MOWEFR 08/11/16 Ferrous Sulfate 325 mg PO BID 08/11/16 Fluticasone/Vilanterol [Breo Ellipta 100-25 Mcg INH] 1 each IH DAILY 08/11/16 Guaifenesin [Mucinex] 600 mg PO Q12H 08/11/16 Mineral Oil/Hydrophil Petrolat [Aquaphor Healing Ointment] 50 gm TP BID Nystatin Powder [Nystop Powder -] 60 gm TP DAILY 08/11/16 Pantoprazole Sodium [Protonix] 40 mg PO DAILY 08/11/16 Polyethylene Glycol 3350 [Miralax 119 gm Btl -] 17 gm PO DAILY 08/11/16 Prednisone 30 mg PO DAILY 08/11/16 Sennosides [Evac-U-Gen] 17.2 mg PO DAILY 08/11/16 Sodium Chloride Nasal [place] [[place] Nasal [place] -] 2 spray NS Q12H PRN 08/23 Tamsulosin HCl [Flomax] 0.4 mg PO DAILY 08/11/16 Acetylcysteine Po/INH 20% [Mucomyst 20 Oral / INH Use Only*] 600 mg NEB QIDR # 120 vial 08/21/16 Atorvastatin Ca [Lipitor] 20 mg PO HS #30 tablet 08/21/16 Metoprolol Tartrate [Lopressor -] 25 mg PO BID #60 tablet 08/21/16 Torsemide 80 mg PO BID #60 cap 08/21/16 Family Disease History - Family Disease History Family Disease History: Other: Father (parkinson's disease) Physical Exam Vital Signs: Vital Signs Temperature 97.4 F L 08/24/16 00:00 Pulse Rate 88 05/18/17 00:00 Respiratory Rate 29 H 08/24/16 00:00 Blood Pressure 116/68 08/24/16 00:00 O2 Sat by Pulse Oximetry (%) 100 08/23/16 22:47 Constitutional: Yes: Well Nourished, Anxious Eyes: Yes: EOM Intact, PERRL HENT: Yes: Atraumatic, Normocephalic Neck: Yes: Supple, Trachea Midline Cardiovascular: Yes: Regular Rate and Rhythm, S1, S2 Respiratory: Yes: On BiPap, Poor Air Entry (Right lung field), Rhonchi (Rhonchi to anterior chest wall), Other (Bronchial breath sounds to right lung field) Gastrointestinal: Yes: Normal Bowel Sounds, Soft, Abdomen, Obese ...Rectal Exam: Yes: Deferred Musculoskeletal: Yes: WNL Extremities: Yes: WNL Peripheral Pulses WNL: Yes Integumentary: Yes: Venous Stasis Changes, Other (multiple scaly plaques to b/l LE's) Neurological: Yes: Alert, Oriented ...Motor Strength: WNL Imaging - Results Chest X-ray: Report Reviewed, Image Reviewed Assessment/Plan A: Patient is a 75 year old male from [facility] with a significant medical hx of HTN, HLD, CAD s/p stents x 2 (2014), diastolic heart failure, AFib, COPD, respiratory failure requiring intubation (02/1016-04/2016), GI bleed, h/o DVT and PE who is presented to the ED for respiratory failure. Pt with leukocytosis , increased right pleural effusion and questionable new infiltrate on exam c/f HAP given recent admission and discharge from ICU. P: -Cont Bipap -Wean FIo2 for goal SPo2 88-92 given hx of COPD -Continue antibiotics -Consider changing levaquin to aztreonam and possibly adding tobramycin for double gram negative coverage -F/u cultures -ABG PRN -CPT and NT suctioning -Consider drainage of R pleural effusion -trend cbc -daily BNP -consider trial of lasix given elevated BNP -consider cardiology consult -cont sepsis dose steroids - Thank you for this interesting consult. Pt is critically ill. CCT 45 mins not including procedures.
[2016-08-24 01:39] LABS: SODIUM,RANDOM URINE 16 MMOL/L
[2016-08-24 01:47] LABS: CHLORIDE,RANDOM URINE < 10 MMOL/L
[2016-08-24] MEDS: methylPREDNISolone NA SUCC 40 MG/1 ML VIAL IVPB SCH ×2 (02:23→09:42)
[2016-08-24] MEDS ORDERED: ACETAMINOPHEN 325 MG TABLET (FP) PO PRN ×2 (05:59→13:17)
[2016-08-24] MEDS ORDERED: ALBUTEROL SO4 2.5/IPRATROPIUM 0.5 INH SOL 3 ML VIAL.NEB. NEB SCH (06:00)
[2016-08-24 06:22] LABS: BASOPHIL 0.1 % (0-2.0); MCH 28.3 pg (25.7-33.7); MCHC 32.3 g/dl (32.0-35.9); MEAN CELL VOLUME 87.5 fl (80-96); MEAN PLT VOLUME 7.7 fl (7.5-11.1); NEUTROPHILS 96.3 % (42.8-82.8); PLATELET COUNT 301 K/MM3 (134-434); RDW 16.1 % (11.9-15.9); WHITE BLOOD COUNT 12.3 K/mm3 (4.0-10.0)
[2016-08-24] MEDS: ACETYLCYSTEINE 20% 200MG/ML 4 ML VIAL *FOR ORAL / INH USE ONLY NEB SCH ×3 (06:37→19:00)
[2016-08-24] MEDS: TOBRAMYCIN SULFATE 90 MG in SODIUM CHLORIDE 100 ML IVPB SCH ×2 (06:44→10:46)
[2016-08-24] MEDS: INSULIN SLIDING SCALE (NOVOLOG) 1 VIAL SQ SCH ×4 (06:45→22:23)
[2016-08-24 06:53] LABS: ALBUMIN 2.2 g/dl (3.4-5.0); ALK PHOS 60 U/L (45-117); ANION GAP 16 (8-16); BILIRUBIN,TOTAL 0.4 mg/dL (0.2-1.0); CALCIUM 8.2 mg/dL (8.5-10.1); CO2 32 mmol/L (21-32); COCKROFT - GAULT 23.72; CREATININE 3.7 mg/dL (0.7-1.3); GLUCOSE,RANDOM 114 mg/dL (74-106); MAGNESIUM 3.3 mg/dL (1.8-2.4); PHOSPHOROUS 7.3 mg/dL (2.5-4.9); SGOT/AST 10 U/L (15-37); SGPT/ALT 8 U/L (12-78); TOT PROT 5.2 g/dl (6.4-8.2); TROPONIN I < 0.02 ng/ml (0.00-0.05)
[2016-08-24] MEDS ORDERED: TAMSULOSIN HCL 0.4 MG CAP.ER.24H (FP) PO SCH (08:30)
--- NOTE | 2016-08-24 08:39 | PN ---
Progress Note, Physician Chief Complaint: Patient is a 75 year old male from [facility] with a significant medical hx of HTN , HLD, CAD s/p stents x 2 (2014), diastolic heart failure, AFib, COPD, respiratory failure requiring intubation (02/1016-04/2016), GI bleed, h/o DVT and PE who is presenting to the ED for respiratory failure. Patient was recently discharged from ICU admission on 08/21 for respiratory failure and left pleural effusion. Patient was sent over for shortness of breath, weakness, and decreased appetite and liquid intake. The patient has been on continuous BIPAP, with O2Sat of 100% on room air. Per senior living papers, patient has had difficulty sleeping, with some anxiety, and refused meds yesterday morning. History of Present Illness: PMH: CAD CKD Chronic COPD, chronic respiratory failure Chronic diastolic CHF DVT Chronic anemia - Current Medication List Current Medications: Active Medications Acetaminophen (Tylenol -) 650 mg PO Q6H PRN PRN Reason: PAIN Acetylcysteine (Mucomyst 20 Oral / Inh Use Only*) 600 mg NEB QIDR [facility] Last Admin: 08/24/16 06:37 Dose: 600 mg Albuterol/Ipratropium (Duoneb -) 1 amp NEB QIDR [facility] Last Admin: 08/24/16 06:36 Dose: 1 amp Amlodipine Besylate (Norvasc -) 10 mg PO DAILY [facility] Apixaban (Eliquis -) 2.5 mg PO BID [facility] Aspirin (Ecotrin -) 81 mg PO DAILY [facility] Atorvastatin Calcium (Lipitor -) 20 mg PO HS [facility] Bupropion HCl (Wellbutrin Xl -) 150 mg PO DAILY [facility] Chlorhexidine Gluconate (Hibiclens For Decolonization -) 1 applic TP HS [facility] Last Admin: 08/23/16 23:18 Dose: 1 applic Docusate Sodium (Colace -) 100 mg PO BID [facility] Duloxetine HCl (Cymbalta -) 60 mg PO DAILY [facility] Ferrous Sulfate (Feosol -) 325 mg PO BID [facility] Guaifenesin (Mucinex -) 600 mg PO BID PRN Aztreonam 1 gm/ Dextrose 50 mls @ 100 mls/hr IVPB Q8H-IV [facility] PRN Reason: Protocol Tobramycin Sulfate 90 mg/ (Sodium Chloride) 102.25 mls @ 100 mls/hr IVPB Q8HIV [facility] PRN Reason: Protocol Last Admin: 08/24/16 06:44 Dose: 100 mls/hr Aztreonam 1 gm/ Dextrose 50 mls @ 100 mls/hr IVPB ONCE ONE Stop: 08/24/16 09:29 Insulin Aspart (Novolog Vial Sliding Scale -) 1 vial SQ ACHS [facility] PRN Reason: Protocol Last Admin: 08/24/16 06:45 Dose: 3 units Methylprednisolone Sodium Succinate (Solu-Medrol -) 40 mg IVPB Q6H-IV [facility] Last Admin: 08/24/16 02:23 Dose: 40 mg Mupirocin (Bactroban Ointment (For Decolonization) -) 1 applic NS BID [facility] Stop: 08/28/16 21:59 Last Admin: 08/23/16 23:19 Dose: 1 applic Pantoprazole Sodium (Protonix -) 40 mg PO DAILY [facility] Pneumococcal 13-Valent Conj Vacc (Prevnar 13 Syringe -) 0.5 ml IM .ONCE ONE Stop: 08/24/16 10:01 Polyethylene Glycol (Miralax (For Daily Use) -) 17 gm PO DAILY [facility] Senna (Senna -) 2 tab PO DAILY PRN PRN Reason: CONSTIPATION Sodium Chloride ([place] Nasal [place] -) 2 spray NS Q12H PRN PRN Reason: NASAL CONGESTION Tamsulosin HCl (Flomax -) 0.4 mg PO DAILY@0830 [facility] - Objective Vital Signs: Vital Signs Temperature 97.1 F L 08/24/16 06:00 Pulse Rate 80 08/24/16 06:00 Respiratory Rate 21 08/24/16 06:00 Blood Pressure 127/68 08/24/16 06:00 O2 Sat by Pulse Oximetry (%) 100 08/23/16 22:47 Constitutional: Yes: Other (on BiPAP) Eyes: Yes: Conjunctiva Clear Cardiovascular: Yes: Regular Rate and Rhythm Respiratory: Yes: Other (bilateral rhonchi, no wheezing. Decreased breath sounds at bases) Gastrointestinal: Yes: Soft, Abdomen, Obese Edema: Yes Edema: LLE: 1+, RLE: 1+ Neurological: Yes: Alert Labs: CBC, BMP 08/24/16 05:20 08/24/16 05:20 INR, PTT INR 1.23 (0.82-1.09) H 08/23/16 18:59 Microbiology Laboratory Tests 08/23/16 08/24/16 08/24/16 18:59 05:20 05:20 WBC 12.3 H Hgb 8.3 L D Hct 25.8 L D Plt Count 301 Sodium 140 Potassium 5.4 H BUN 103 H Creatinine 3.7 H Random Glucose 114 H Calcium 8.2 L Phosphorus 7.3 H Troponin I < 0.02 < 0.02 - ....Imaging X-ray: Image Reviewed EKG: Image Reviewed (TELE: NSR, rare VPCs) Assessment/Plan IMP: Acute on chronic exacerbation COPD Acute on chronic renal failure CAD s/p PCI History of DVT REC: 1. Acute on chronic COPD: -steroid taper as per Critical Care -Abx as per ID, follow cultures: now on Abx for suspected PNA as well 2. Acute on chronic renal failure: -Was diuresed on last admission, for decompensated diastolic CHF -Now appears relatively euvolemic, would not diurese at this time -Consider renal consult 3. CAD s/p PCI: -Contine single antiplatelet Rx 4. History DVT: -On Eliquis, adjusted for renal function
--- NOTE | 2016-08-24 08:45 | PN ---
Physical Exam: SUBJECTIVE: Patient seen and examined at bedside in ICU. AAO and at usual mental status baseline. Afebrile overnight with no acute events overnight. States he feels better than on admission. States he is unsure why his PO intake has been so poor lately. Also denies any compliance issues with his medications. OBJECTIVE: Vital Signs Period Temp Pulse Resp BP Sys/[place] Pulse Ox Last 24 Hr 97.1 F-98.8 F 80-88 20-29 93-134/61-74 90-100 GENERAL: Awake, alert, and fully oriented, in no acute distress. HEENT: Atraumatic, EOMI, PERRLA, No lymphadenopathy noted, moist membranes LUNGS: Breath sounds diminished on right mid and lower lung with scattered ronchi to auscultation bilaterally, bibasilar crackles. No wheezes or accessory muscle use. HEART: Regular rate and rhythm, normal S1 and S2 with systolic murmur, rub or gallop. ABDOMEN: Soft, obese, nontender, not distended, normoactive bowel sounds, no guarding, no rebound, no masses. No hepatomegaly or splenomegaly. EXTREMITIES: 2+ pulses, warm, well-perfused. No calf tenderness. No peripheral edema. NEUROLOGICAL: Cranial nerves II-XII intact. Normal speech. Normal gait. PSYCHIATRIC: Cooperative. Good eye contact. Appropriate mood and affect. SKIN: Bilateral lower ext with Skin discoloration with dark yellow patches and venous stasis. No signs of fluid overload. Laboratory Results - last 24 hr 08/23/16 08/23/16 08/24/16 21:56 23:11 01:00 WBC RBC Hgb Hct MCV MCHC RDW Plt Count MPV Neutrophils % Lymphocytes % Monocytes % Eosinophils % Basophils % Sodium Potassium Chloride Carbon Dioxide Anion Gap BUN Creatinine Creat Clearance w eGFR POC Glucometer [id number] Random Glucose Lactic Acid 1.992 Calcium Phosphorus Magnesium Total Bilirubin AST ALT Alkaline Phosphatase Creatine Kinase Troponin I Total Protein Albumin Ur Random Sodium Ur Random Potassium Ur Random Chloride Urine Creatinine 110.0 08/24/16 08/24/16 08/24/16 01:00 05:20 05:20 WBC 12.3 H RBC 2.95 L Hgb 8.3 L D Hct 25.8 L D MCV 87.5 MCHC 32.3 RDW 16.1 H Plt Count 301 MPV 7.7 Neutrophils % 96.3 H Lymphocytes % 2.3 L D Monocytes % 1.3 L Eosinophils % 0.0 Basophils % 0.1 Sodium 140 Potassium 5.4 H Chloride 92 L Carbon Dioxide 32 Anion Gap 16 BUN 103 H Creatinine 3.7 H Creat Clearance w eGFR 16.18 POC Glucometer Random Glucose 114 H Lactic Acid Calcium 8.2 L Phosphorus 7.3 H Magnesium 3.3 H Total Bilirubin 0.4 AST 10 L ALT 8 L Alkaline Phosphatase 60 Creatine Kinase 9 L Troponin I < 0.02 Total Protein 5.2 L Albumin 2.2 L Ur Random Sodium 16 Ur Random Potassium 38.7 Ur Random Chloride < 10 Urine Creatinine 08/24/16 06:45 WBC RBC Hgb Hct MCV MCHC RDW Plt Count MPV Neutrophils % Lymphocytes % Monocytes % Eosinophils % Basophils % Sodium Potassium Chloride Carbon Dioxide Anion Gap BUN Creatinine Creat Clearance w eGFR POC Glucometer [phone] Random Glucose Lactic Acid Calcium Phosphorus Magnesium Total Bilirubin AST ALT Alkaline Phosphatase Creatine Kinase Troponin I Total Protein Albumin Ur Random Sodium Ur Random Potassium Ur Random Chloride Urine Creatinine Active Medications Generic Name Dose Route Start Last Admin Trade Name Freq PRN Reason Stop Dose Admin Acetaminophen 650 mg 08/24/16 05:59 Tylenol - PO Q6H PRN PAIN Acetylcysteine 600 mg 08/24/16 06:00 08/24/16 06:37 Mucomyst 20 Oral / Inh Use Only* NEB 600 mg QIDR [facility] Administration Albuterol/Ipratropium 1 amp 08/24/16 06:00 08/24/16 06:36 Duoneb - NEB 1 amp QIDR [facility] Administration Amlodipine Besylate 10 mg 08/24/16 10:00 Norvasc - PO DAILY [facility] Apixaban 2.5 mg 08/24/16 10:00 Eliquis - PO BID [facility] Aspirin 81 mg 08/24/16 10:00 Ecotrin - PO DAILY [facility] Atorvastatin Calcium 20 mg 08/24/16 22:00 Lipitor - PO HS [facility] Bupropion HCl 150 mg 08/24/16 10:00 Wellbutrin Xl - PO DAILY [facility] Chlorhexidine Gluconate 1 applic 08/23/16 22:00 08/23/16 23:18 Hibiclens For Decolonization - TP 1 applic HS [facility] Administration Docusate Sodium 100 mg 08/24/16 10:00 Colace - PO BID [facility] Duloxetine HCl 60 mg 08/24/16 10:00 Cymbalta - PO DAILY [facility] Ferrous Sulfate 325 mg 08/24/16 10:00 Feosol - PO BID [facility] Guaifenesin 600 mg 08/24/16 00:36 Mucinex - PO BID PRN Aztreonam 1 gm/ Dextrose 50 mls @ 100 mls/hr 08/24/16 10:00 IVPB Q8H-IV [facility] Protocol Tobramycin Sulfate 90 mg/ 102.25 mls @ 100 mls/hr 08/24/16 06:00 08/24/16 06:44 Sodium Chloride IVPB 100 mls/hr Q8HIV [facility] Administration Protocol Aztreonam 1 gm/ Dextrose 50 mls @ 100 mls/hr 08/24/16 09:00 IVPB 08/24/16 09:29 ONCE ONE Insulin Aspart 1 vial 08/23/16 22:00 08/24/16 06:45 Novolog Vial Sliding Scale - SQ 3 units ACHS [facility] Administration Protocol Methylprednisolone Sodium Succinate 40 mg 08/24/16 03:00 08/24/16 02:23 Solu-Medrol - IVPB 40 mg Q6H-IV [facility] Administration Mupirocin 1 applic 08/23/16 22:00 08/23/16 23:19 Bactroban Ointment (For Decolonization) - NS 08/28/16 21:59 1 applic BID [facility] Administration Pantoprazole Sodium 40 mg 08/24/16 10:00 Protonix - PO DAILY [facility] Pneumococcal 13-Valent Conj Vacc 0.5 ml 08/24/16 10:00 Prevnar 13 Syringe - IM 08/24/16 10:01 .ONCE ONE Polyethylene Glycol 17 gm 08/24/16 10:00 Miralax (For Daily Use) - PO DAILY [facility] Senna 2 tab 08/24/16 00:36 Senna - PO DAILY PRN CONSTIPATION Sodium Chloride 2 spray 08/24/16 00:36 [place] - NS Q12H PRN NASAL CONGESTION Tamsulosin HCl 0.4 mg 08/24/16 08:30 Flomax - PO DAILY@0830 [facility] ASSESSMENT/PLAN: 75 year old male with PMH of HTN, HPLD, CAD s/p stents x2 in 2014, diastolic CHF, AFIB, COPD, DVT and PE presented to ED last night from [place] for SOB & poor PO intake since being discharged from [facility] on 08/21/2016 for similar presentation. Found to be in ARF with right pleural effusion (larger than on discharge). #Acute Respiratory Failure -saturating well on BiPAP with periodic Ventimask use as well -started on Aztreonam, Tobramycin -Solumedrol 40mg q6h, taper -Mucomyst/Ventolin treatments -cultures sent & pending -ID Consulted -CXR reviewed #KARLOS -etiology is likely dehydration due to poor intake -collator operator consult requested -will monitor & trend kiney function -avoid nephrotoxic meds -renal US ordered -urine lytes ordered -consider nephrology consult -Flomax #DM -ISS -BGM #HTN/HTL/A-Fib history -Continue home meds: Norvasc 10mg PO daily, Eliquis 2.5mg PO BID, ASA 81MG PO DAILY, Lipitor 20mg PO HS -will not diurese, as per Cardiology recommendation #Constipation -continue regimen: Colace, Miralax, Senna #Anxiety Hx -continue home meds: Wellbutrin 150mg PO DAILY, Cymblata 60mg PO DAILY Prophylaxis/FEN -On eliquis -PPI -No IVF administration due to CHF Hx -monitor electrolytes -Feosol Dispo: needs palliative care consult; patient has stated he does not want to be intubated but seems hesitant to make a formal decision regarding code status Visit type - Emergency Visit Emergency Visit: Yes ED Registration Date: 08/23/16 Care time: The patient presented to the Emergency Department on the above date and was hospitalized for further evaluation of their emergent condition. - New Patient This patient is new to me today: Yes Date on this admission: 08/24/16 - Critical Care Critical Care patient: Yes Total Critical Care Time (in minutes): 40 Critical Care Statement: The care of this patient involved high complexity decision making to prevent further life threatening deterioration of the patient 's condition and/or to evalute & treat vital organ system(s) failure or risk of failure.
[2016-08-24] MEDS ORDERED: AZTREONAM 1 GM in DEXTROSE 5%-WATER - 50 ML IVPB ONE (09:00)
[2016-08-24] MEDS: MUPIROCIN 2% TOPICAL OINTMENT FOR DECOLONIZATION NS SCH (09:43)
[2016-08-24] MEDS ORDERED: AZTREONAM 1 GM in DEXTROSE 5%-WATER - 50 ML IVPB SCH ×2 (10:00→18:00)
[2016-08-24] MEDS ORDERED: DOCUSATE SODIUM 100 MG CAPSULE (FP) PO SCH (10:00)
[2016-08-24] MEDS ORDERED: POLYETHYLENE GLYCOL 3350 119 GM BTL PO SCH (10:00)
[2016-08-24] MEDS ORDERED: FERROUS SO4 325 MG TABLET (FP) PO SCH (10:00)
[2016-08-24] MEDS ORDERED: ASPIRIN COATED 81 MG TABLET.EC PO SCH (10:00)
[2016-08-24] MEDS ORDERED: APIXABAN 2.5 MG TABLET PO SCH (10:00)
[2016-08-24] MEDS ORDERED: amLODIPine BESYLATE 10 MG TABLET (FP) PO SCH (10:00)
[2016-08-24] MEDS ORDERED: DULoxetine HCL 30 MG CAPSULE.DR (FP) PO SCH (10:00)
[2016-08-24] MEDS ORDERED: PNEUMOC 13-VAL CONJ-DIP CRM/PF 0.5 ML DISP.SYRIN IM ONE (10:00)
[2016-08-24] MEDS ORDERED: PANTOPRAZOLE 40 MG TABLET (FP) PO SCH (10:00)
--- NOTE | 2016-08-24 11:34 | EKG ---
Test Reason : Blood Pressure : / mmHG Vent. Rate : 087 BPM Atrial Rate : 087 BPM P-R Int : 166 ms QRS Dur : 144 ms QT Int : 400 ms P-R-T Axes : 038 042 009 degrees QTc Int : 481 ms POOR DATA QUALITY, INTERPRETATION MAY BE ADVERSELY AFFECTED NORMAL SINUS RHYTHM RIGHT BUNDLE BRANCH BLOCK ABNORMAL ECG WHEN COMPARED WITH ECG OF 12-AUG-2016 11:25, SINUS RHYTHM HAS REPLACED ATRIAL FIBRILLATION Confirmed by ATA ALLEN, RASTA ([id number]) on 08/24/2016 11:33:42 AM Referred By: Confirmed By:RASTA BERUMEN MD
[2016-08-24] MEDS ORDERED: ALBUTEROL SO4 0.083% IH SOL 2.5 MG/3 ML VIAL.NEB. NEB SCH (12:00)
--- NOTE | 2016-08-24 13:49 | PN ---
Teaching Attending Note Name of Resident: Alan Glover ATTENDING PHYSICIAN STATEMENT I saw and evaluated the patient. I reviewed the resident's note and discussed the case with the resident. I agree with the resident's findings and plan as documented. Xavier Conway MD
[2016-08-24] MEDS ORDERED: TOBRAMYCIN SULFATE 90 MG in SODIUM CHLORIDE 100 ML IVPB SCH (14:00)
[2016-08-24] MEDS ORDERED: methylPREDNISolone NA SUCC 40 MG/1 ML VIAL IVPB SCH (15:00)
--- NOTE | 2016-08-24 15:37 | CONSULT ---
Consult Consult Specialty:: infectious diseases Reason for Consultation:: sob - History of Present Illness Chief Complaint: sob History of Present Illness: 75 year old male from [facility] with pmh of HTN, HPLD, CAD s/p stents x2 in 2015, diastolic CHF, AFIB, COPD, DVT and PE, Acute respiratory failure requiring intubation presented to the ED with complaint of shortness of breath. The patient was recently discharged from [facility] where he was in the ICU for Resp failure, pleural effusion and pneumonia. He was treated with 7 days of Meropenem and had a Chest tube 08/12/16. patient well known to me continues to be non compliant which he did at intermediate and refused bipap and ended up in the hospital in the icu now he feels well patient has known history of pleural effusions which keep on accumulating adding to his woes - History Source History Provided By: Patient, Family Member Limitations to Obtaining History: No Limitations - Past Medical History PATTERN FILER: Yes: Peripheral Neuropathy Cardio/Vascular: Yes: CAD, CHF (diastolic), HTN, Hyperlipdemia Pulmonary: Yes: COPD, O2 Dependent, Sleep Apnea Renal/: Yes: Renal Inusuff, Renal Calculi Psych: Yes: Anxiety Dermatology: Yes: Cellulitis (cellulitis during 02/2016 admission) Additional Medical History: Obesity - Past Surgical History Past Surgical History: Yes: Stent - Alcohol/Substance Use Hx Alcohol Use: No History of Substance Use: reports: None - Smoking History Smoking history: Unknown if ever smoked Have you smoked in the past 12 months: No Aproximately how many cigarettes per day: 0 If you are a former smoker, when did you quit?: 6 years - Social History ADL: Independent 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 History of Recent Travel: No Home Medications - Allergies Allergies/Adverse Reactions: Allergies Allergy/AdvReac Type Severity Reaction Status Date / Time Penicillins Allergy Verified 08/23/16 18:44 - Home Medications Home Medications: Ambulatory Orders Aa/Hydrolyzed Collagen, Whey [Lps Neutral Flavor Liquid] 960 ml PO BID 08/11/16 Acetaminophen 650 mg PO Q6H PRN 08/11/16 Albuterol 2.5/Ipratropium 0.5 [Duoneb -] 1 neb IH TID 08/11/16 Amlodipine Besylate [Norvasc -] 10 mg PO DAILY 08/11/16 Apixaban [Eliquis] 2.5 mg PO BID 08/11/16 Aspirin [Aspirin EC] 81 mg PO DAILY 08/11/16 Bupropion HCl [Bupropion Xl] 150 mg PO DAILY 08/11/16 Docusate Sodium [Colace -] 100 mg PO BID 08/11/16 Duloxetine HCl 60 mg PO DAILY 08/11/16 Epoetin Keith [Epogen] 10,000 unit IM MOWEFR 08/11/16 Ferrous Sulfate 325 mg PO BID 08/11/16 Fluticasone/Vilanterol [Breo Ellipta 100-25 Mcg INH] 1 each IH DAILY 08/11/16 Guaifenesin [Mucinex] 600 mg PO Q12H 08/11/16 Mineral Oil/Hydrophil Petrolat [Aquaphor Healing Ointment] 50 gm TP BID Nystatin Powder [Nystop Powder -] 60 gm TP DAILY 08/11/16 Pantoprazole Sodium [Protonix] 40 mg PO DAILY 08/11/16 Polyethylene Glycol 3350 [Miralax 119 gm Btl -] 17 gm PO DAILY 08/11/16 Prednisone 30 mg PO DAILY 08/11/16 Sennosides [Evac-U-Gen] 17.2 mg PO DAILY 08/11/16 Sodium Chloride Nasal [place] [[place] -] 2 spray NS Q12H PRN 08/23 Tamsulosin HCl [Flomax] 0.4 mg PO DAILY 08/11/16 Acetylcysteine Po/INH 20% [Mucomyst 20 Oral / INH Use Only*] 600 mg NEB QIDR # 120 vial 08/21/16 Atorvastatin Ca [Lipitor] 20 mg PO HS #30 tablet 08/21/16 Metoprolol Tartrate [Lopressor -] 25 mg PO BID #60 tablet 08/21/16 Torsemide 80 mg PO BID #60 cap 08/21/16 Family Disease History - Family Disease History Family Disease History: Other: Father (parkinson's disease) Review of Systems - Review of Systems Constitutional: reports: No Symptoms Eyes: reports: No Symptoms HENT: reports: No Symptoms Respiratory: reports: SOB, SOB on Exertion, Other Gastrointestinal: reports: No Symptoms Genitourinary: reports: No Symptoms Musculoskeletal: reports: No Symptoms Integumentary: reports: No Symptoms Neurological: reports: No Symptoms Endocrine: reports: No Symptoms Hematology/Lymphatic: reports: No Symptoms Psychiatric: reports: No Symptoms Physical Exam Vital Signs: Vital Signs Temperature 97.8 F 08/24/16 14:00 Pulse Rate 89 08/24/16 15:00 Respiratory Rate 22 08/24/16 15:00 Blood Pressure 130/59 08/24/16 15:00 O2 Sat by Pulse Oximetry (%) 99 08/24/16 15:08 Constitutional: Yes: Well Nourished, Calm, Obese Eyes: Yes: Conjunctiva Clear HENT: Yes: Atraumatic Neck: Yes: Supple Cardiovascular: Yes: Pulse Irregular, S1, S2 Respiratory: Yes: Poor Air Entry (absent at the bases), SOB, SOB on Exertion Gastrointestinal: Yes: Normal Bowel Sounds, Soft Musculoskeletal: Yes: Other Extremities: Yes: Other Neurological: Yes: Alert, Oriented Psychiatric: Yes: Alert, Oriented Labs: CBC, BMP 08/24/16 05:20 08/24/16 05:20 Imaging - Results Chest X-ray: Report Reviewed, Image Reviewed Assessment/Plan - Problems (1) Acute and chronic respiratory failure with hypoxia Code(s): J96.21 - ACUTE AND CHRONIC RESPIRATORY FAILURE WITH HYPOXIA (2) Pneumonia Code(s): J18.9 - PNEUMONIA, UNSPECIFIED ORGANISM Qualifiers: Pneumonia type: due to unspecified organism Laterality: left Lung location: lower lobe of lung Qualified Code(s): J18.1 - Lobar pneumonia, unspecified organism (3) Pleural effusion Code(s): J90 - PLEURAL EFFUSION, NOT ELSEWHERE CLASSIFIED (4) Acute on chronic diastolic (congestive) heart failure Code(s): I50.33 - ACUTE ON CHRONIC DIASTOLIC (CONGESTIVE) HEART FAILURE (5) COPD (chronic obstructive pulmonary disease) Code(s): J44.9 - CHRONIC OBSTRUCTIVE PULMONARY DISEASE, UNSPECIFIED (6) Renal failure (ARF), acute on chronic Code(s): N17.9 - ACUTE KIDNEY FAILURE, UNSPECIFIED N18.9 - CHRONIC KIDNEY DISEASE, UNSPECIFIED (7) Diabetes Code(s): E11.9 - TYPE 2 DIABETES MELLITUS WITHOUT COMPLICATIONS Qualifiers: Diabetes mellitus type: type 2 Diabetes mellitus complication status: with kidney complications Diabetes mellitus complication detail: with chronic kidney disease (8) Atrial fibrillation Code(s): I48.91 - UNSPECIFIED ATRIAL FIBRILLATION 9 bilateral cellulitis of the legs plan will start patient on abx close monitoring i think we should re tap the patient elevation of the legs resp support rest as per icu cc time 45 min
[2016-08-24] MEDS: ERTAPENEM SODIUM 1 GM in SODIUM CHLORIDE 50 ML IVPB SCH (17:29)
--- NOTE | 2016-08-24 18:20 | PN ---
Physical Exam: SUBJECTIVE: Patient seen and examined at bedside in ICU. present. Patient on NRB. Breathing is better than yesterday. States he does not like [facility], he was very nervous there because the staff is young and inexperienced. OBJECTIVE: Vital Signs Period Temp Pulse Resp BP Sys/[place] Pulse Ox Last 24 Hr 97.1 F-98.8 F 80-90 20-29 93-134/58-74 90-100 GENERAL: The patient is awake, alert, and fully oriented, in no acute distress. LUNGS: Diffuse rhonchi. HEART: Regular, in sinus rhythm. S1, S2 without murmur, rub or gallop. ABDOMEN: Soft, nontender, nondistended, normoactive bowel sounds, no guarding, no rebound EXTREMITIES: 2+ pulses, warm, well-perfused, 1+ bilateral edema; lower extremity erythema seen previously almost completely resolved NEUROLOGICAL: Cranial nerves II through XII grossly intact. Normal speech, gait not observed. Laboratory Results - last 24 hr 08/23/16 08/23/16 08/24/16 21:56 23:11 01:00 WBC RBC Hgb Hct MCV MCHC RDW Plt Count MPV Neutrophils % Lymphocytes % Monocytes % Eosinophils % Basophils % Sodium Potassium Chloride Carbon Dioxide Anion Gap BUN Creatinine Creat Clearance w eGFR POC Glucometer 225.06768 Random Glucose Hemoglobin A1c % Lactic Acid 1.992 Calcium Phosphorus Magnesium Total Bilirubin AST ALT Alkaline Phosphatase Creatine Kinase Troponin I Total Protein Albumin Ur Random Sodium Ur Random Potassium Ur Random Chloride Urine Creatinine 110.0 08/24/16 08/24/16 08/24/16 01:00 05:20 05:20 WBC 12.3 H RBC 2.95 L Hgb 8.3 L D Hct 25.8 L D MCV 87.5 MCHC 32.3 RDW 16.1 H Plt Count 301 MPV 7.7 Neutrophils % 96.3 H Lymphocytes % 2.3 L D Monocytes % 1.3 L Eosinophils % 0.0 Basophils % 0.1 Sodium 140 Potassium 5.4 H Chloride 92 L Carbon Dioxide 32 Anion Gap 16 BUN 103 H Creatinine 3.7 H Creat Clearance w eGFR 16.18 POC Glucometer Random Glucose 114 H Hemoglobin A1c % Lactic Acid Calcium 8.2 L Phosphorus 7.3 H Magnesium 3.3 H Total Bilirubin 0.4 AST 10 L ALT 8 L Alkaline Phosphatase 60 Creatine Kinase 9 L Troponin I < 0.02 Total Protein 5.2 L Albumin 2.2 L Ur Random Sodium 16 Ur Random Potassium 38.7 Ur Random Chloride < 10 Urine Creatinine 08/24/16 08/24/16 05:20 06:45 WBC RBC Hgb Hct MCV MCHC RDW Plt Count MPV Neutrophils % Lymphocytes % Monocytes % Eosinophils % Basophils % Sodium Potassium Chloride Carbon Dioxide Anion Gap BUN Creatinine Creat Clearance w eGFR POC Glucometer 151.16391 Random Glucose Hemoglobin A1c % 5.5 D Lactic Acid Calcium Phosphorus Magnesium Total Bilirubin AST ALT Alkaline Phosphatase Creatine Kinase Troponin I Total Protein Albumin Ur Random Sodium Ur Random Potassium Ur Random Chloride Urine Creatinine Active Medications Generic Name Dose Route Start Last Admin Trade Name Freq PRN Reason Stop Dose Admin Acetaminophen 650 mg 08/24/16 13:17 Tylenol - PO Q6H PRN PAIN Acetylcysteine 600 mg 08/24/16 18:00 Mucomyst 20 Oral / Inh Use Only* NEB QIDR [facility] Albuterol Sulfate 1 amp 08/24/16 18:00 Ventolin 0.083% Nebulizer Soln - NEB QIDR [facility] Amlodipine Besylate 10 mg 08/25/16 10:00 Norvasc - PO DAILY [facility] Apixaban 2.5 mg 08/24/16 22:00 Eliquis - PO BID [facility] Aspirin 81 mg 08/25/16 10:00 Ecotrin - PO DAILY [facility] Atorvastatin Calcium 20 mg 08/24/16 22:00 Lipitor - PO HS [facility] Bupropion HCl 150 mg 08/25/16 10:00 Wellbutrin Xl - PO DAILY [facility] Docusate Sodium 100 mg 08/24/16 22:00 Colace - PO BID [facility] Duloxetine HCl 60 mg 08/25/16 10:00 Cymbalta - PO DAILY [facility] Ferrous Sulfate 325 mg 08/24/16 22:00 Feosol - PO BID [facility] Guaifenesin 600 mg 08/24/16 13:17 Mucinex - PO BID PRN Tobramycin Sulfate 90 mg/ 102.25 mls @ 102.25 mls/hr 08/24/16 14:00 08/24/16 15 :10 Sodium Chloride IVPB Not Given Q8HIV [facility] Protocol Ertapenem 1 gm/ Sodium 50 mls @ 50 mls/hr 08/24/16 17:30 Chloride IVPB DAILY [facility] Protocol Insulin Aspart 1 vial 08/24/16 16:30 Novolog Vial Sliding Scale - SQ ACHS [facility] Protocol Methylprednisolone Sodium Succinate 40 mg 08/24/16 15:00 08/24/16 15:14 Solu-Medrol - IVPB 40 mg Q6H-IV [facility] Administration Pantoprazole Sodium 40 mg 08/25/16 10:00 Protonix - PO DAILY [facility] Polyethylene Glycol 17 gm 08/25/16 10:00 Miralax (For Daily Use) - PO DAILY [facility] Senna 2 tab 08/24/16 13:17 Senna - PO DAILY PRN CONSTIPATION Sodium Chloride 2 spray 08/24/16 13:17 [place] Nasal [place] - NS Q12H PRN NASAL CONGESTION Tamsulosin HCl 0.4 mg 08/25/16 08:30 Flomax - PO DAILY@0830 [facility] ASSESSMENT/PLAN 75 year-old male with a significant PMH of HTN, HLD, CAD s/p stents x 2 (2014), diastolic heart failure, afib, COPD, recurrent episodes of respiratory failure requiring intubation (02/1016-04/2016), GI bleed, h/o DVT and PE. SNF resident. Most recently hospitalized 08/11-08/21/16 and discharged to [facility] requiring continous NIPPV. Readmitted yesterday after reportedly refusing to take medications and poor PO intake. Chronic respiratory failure --requires continuous BIPAP alternating with NRB --resume home dose prednisone PO 30mg --duonebs, mucomyst Chronic diastolic heart failure New right pleural effusion --05/16/16 Echo: LV function normal, EF 57%; RV function normal; trace MR, trace TR --on last admission required aggressive diuresis for bilateral pleural effusions, L>R; left effusion drained with pigtail catheter subsequently removed --on this admission, has new right-sided pleural effusion --will hold diuretics today due to KARLOS and since respiratory status is at baseline --repeat CXR in am Acute on chronic renal failure --since discharge two days ago, BUN 61-->103 and Cr 1.7-->3.7 (baseline Cr 1.5) --will hold diuretics for now --will hold fluids because of new right pleural effusion --repeat labs in am r/o HCAP --WBC trending down and afebrile; CXR more suggestive of effusion than infiltrate but cannot be ruled out yet --ID started empiric ertapenam --sputum culture ordered Paroxysmal atrial fibrillation --rate well-controlled --continue metoprolol --continue Eliquis Hypertension --BP well-controlled --continued amlodipine, metoprolol Hyperlipidemia --continue Lipitor CAD s/p stents --continue ASA, Lipitor h/o DVT and PE --continue Eliquis F/E/N Fluids: PO intake is adequate Electrolytes: replete as indicated Nutrition: diabetic, low sodium DVT prophylaxis: on Eliquis Dispo: continues to require inpatient care. Full Code. Visit type - Emergency Visit Emergency Visit: Yes ED Registration Date: 08/23/16 Care time: The patient presented to the Emergency Department on the above date and was hospitalized for further evaluation of their emergent condition. - New Patient This patient is new to me today: Yes Date on this admission: 08/24/16 - Critical Care Critical Care patient: No
[2016-08-24] MEDS: ALBUTEROL SO4 0.083% IH SOL 2.5 MG/3 ML VIAL.NEB. NEB SCH (19:00)
[2016-08-24] MEDS ORDERED: ATORVASTATIN CA 20 MG TABLET (FP) PO SCH (22:00)
[2016-08-24] MEDS: ATORVASTATIN CA 20 MG TABLET (FP) PO SCH (22:17)
[2016-08-24] MEDS: METOPROLOL TARTRATE 25 MG TABLET (FP) PO SCH (22:17)
[2016-08-24] MEDS: APIXABAN 2.5 MG TABLET PO SCH (22:18)
[2016-08-24] MEDS: FERROUS SO4 325 MG TABLET (FP) PO SCH (22:19)
[2016-08-24] MEDS: DOCUSATE SODIUM 100 MG CAPSULE (FP) PO SCH (22:19)
[2016-08-25] MEDS: ACETYLCYSTEINE 20% 200MG/ML 4 ML VIAL *FOR ORAL / INH USE ONLY NEB SCH ×4 (00:26→16:55)
[2016-08-25] MEDS: ALBUTEROL SO4 0.083% IH SOL 2.5 MG/3 ML VIAL.NEB. NEB SCH ×4 (00:26→16:55)
[2016-08-25 00:48] LABS: BASOPHIL 0.2 % (0-2.0); MCH 27.7 pg (25.7-33.7); MEAN CELL VOLUME 86.5 fl (80-96); MEAN PLT VOLUME 7.5 fl (7.5-11.1); NEUTROPHILS 93.3 % (42.8-82.8); PLATELET COUNT 277 K/MM3 (134-434); RDW 16.2 % (11.9-15.9); WHITE BLOOD COUNT 11.9 K/mm3 (4.0-10.0)
[2016-08-25 01:22] LABS: ALBUMIN 2.2 g/dl (3.4-5.0); BILIRUBIN,TOTAL 0.3 mg/dL (0.2-1.0); CALCIUM 7.7 mg/dL (8.5-10.1); COCKROFT - GAULT 23.72; CREATININE 3.7 mg/dL (0.7-1.3); MAGNESIUM 3.2 mg/dL (1.8-2.4); PHOSPHOROUS 6.5 mg/dL (2.5-4.9); TOT PROT 4.9 g/dl (6.4-8.2)
[2016-08-25] MEDS: INSULIN SLIDING SCALE (NOVOLOG) 1 VIAL SQ SCH ×4 (06:26→22:35)
[2016-08-25 07:06] LABS: MCH 28.2 pg (25.7-33.7); MCHC 32.9 g/dl (32.0-35.9); MEAN CELL VOLUME 85.8 fl (80-96); MEAN PLT VOLUME 7.3 fl (7.5-11.1); PLATELET COUNT 287 K/MM3 (134-434); RDW 15.8 % (11.9-15.9); WHITE BLOOD COUNT 11.8 K/mm3 (4.0-10.0)
[2016-08-25 07:46] LABS: CALCIUM 8.2 mg/dL (8.5-10.1); COCKROFT - GAULT 25.82; CREATININE 3.5 mg/dL (0.7-1.3)
--- NOTE | 2016-08-25 09:40 | PN ---
Progress Note, Physician Chief Complaint: seen and examined. No distress Creatinine worsening, BUN rising. H/H drifting. CXR reviewed: dense consolidation RLL. - Current Medication List Current Medications: Active Medications Acetaminophen (Tylenol -) 650 mg PO Q6H PRN PRN Reason: PAIN Acetylcysteine (Mucomyst 20 Oral / Inh Use Only*) 600 mg NEB QIDR [facility] Last Admin: 08/25/16 06:56 Dose: Not Given Albuterol Sulfate (Ventolin 0.083% Nebulizer Soln -) 1 amp NEB QIDR [facility] Last Admin: 08/25/16 06:56 Dose: Not Given Amlodipine Besylate (Norvasc -) 10 mg PO DAILY [facility] Apixaban (Eliquis -) 2.5 mg PO BID [facility] Last Admin: 08/24/16 22:18 Dose: 2.5 mg Aspirin (Ecotrin -) 81 mg PO DAILY [facility] Atorvastatin Calcium (Lipitor -) 20 mg PO HS [facility] Last Admin: 08/24/16 22:17 Dose: 20 mg Bupropion HCl (Wellbutrin Xl -) 150 mg PO DAILY [facility] Docusate Sodium (Colace -) 100 mg PO BID [facility] Last Admin: 08/24/16 22:19 Dose: 100 mg Duloxetine HCl (Cymbalta -) 60 mg PO DAILY [facility] Epoetin Keith (Procrit -) 10,000 unit IVPUSH MoWeFr@10 [facility] Ferrous Sulfate (Feosol -) 325 mg PO BID [facility] Last Admin: 08/24/16 22:19 Dose: 325 mg Guaifenesin (Mucinex -) 600 mg PO BID PRN Ertapenem 1 gm/ Sodium (Chloride) 50 mls @ 50 mls/hr IVPB DAILY [facility] PRN Reason: Protocol Last Admin: 08/24/16 17:29 Dose: 50 mls/hr Insulin Aspart (Novolog Vial Sliding Scale -) 1 vial SQ ACHS [facility] PRN Reason: Protocol Last Admin: 08/25/16 06:26 Dose: 5 units Metoprolol Tartrate (Lopressor -) 25 mg PO BID [facility] Last Admin: 08/24/16 22:17 Dose: 25 mg Nystatin (Nystop Powder -) 1 applic TP DAILY [facility] Pantoprazole Sodium (Protonix -) 40 mg PO DAILY [facility] Polyethylene Glycol (Miralax (For Daily Use) -) 17 gm PO DAILY [facility] Prednisone (Deltasone -) 30 mg PO DAILY [facility] Senna (Senna -) 2 tab PO DAILY PRN PRN Reason: CONSTIPATION Sodium Chloride ([place] Nasal [place] -) 2 spray NS Q12H PRN PRN Reason: NASAL CONGESTION Tamsulosin HCl (Flomax -) 0.4 mg PO DAILY@0830 [facility] - Objective Vital Signs: Vital Signs Temperature 97.9 F 08/25/16 05:00 Pulse Rate 68 08/25/16 05:01 Respiratory Rate 22 08/25/16 05:01 Blood Pressure 126/51 08/25/16 05:00 O2 Sat by Pulse Oximetry (%) 100 08/24/16 21:00 Constitutional: Yes: No Distress Eyes: Yes: Conjunctiva Clear Cardiovascular: Yes: Regular Rate and Rhythm Respiratory: Yes: Other (bilateral rhonchi and scattered expiratory wheezing. Decreased breath sounds right base.) Gastrointestinal: Yes: Soft, Abdomen, Obese Edema: Yes Edema: LLE: Trace, RLE: Trace Neurological: Yes: Alert Labs: CBC, BMP 08/25/16 05:35 08/25/16 05:35 INR, PTT INR 1.23 (0.82-1.09) H 08/23/16 18:59 Microbiology 08/23/16 19:10 Blood - Peripheral Venous Blood Culture - Preliminary NO GROWTH OBTAINED AFTER 24 HOURS, INCUBATION TO CONTINUE FOR 4 DAYS. 08/23/16 19:10 Blood - Peripheral Venous Blood Culture - Preliminary NO GROWTH OBTAINED AFTER 24 HOURS, INCUBATION TO CONTINUE FOR 4 DAYS. Laboratory Tests 08/23/16 08/25/16 08/25/16 18:59 05:35 05:35 WBC 14.1 H D 11.8 H Hgb 9.6 L D 7.2 L Hct 22.0 L Plt Count 287 Sodium 140 Potassium 4.9 BUN 120 H* Creatinine 3.5 H Assessment/Plan IMP: Acute on chronic exacerbation COPD, Right lower lobe PNA Acute on chronic renal failure, suspected ATN from periods of relative hypotension Anemia CAD s/p PCI History of DVT REC: 1. Acute on chronic COPD, RLL PNA: -steroid taper as per pulmonar -Abx as per ID, follow cultures 2. Acute on chronic renal failure: -Was diuresed on last admission, for decompensated diastolic CHF -Now appears relatively euvolemic, would not diurese at this time -Suspect ARF is likely due to component of ATN from periods of relative hypotension -Renal consult ordered with Dr. Johnson -No PIPER/ARB -Avoid hypotension 3. Anemia: -drifting H/H -No sign of active bleeding -Check stool guaiac -Follow H/H, consider transfusion if Hb < 7 or if active bleeding -Current on Eliquis for prior DVT and ASA for prior coronary PCI 4. CAD s/p PCI: -Contine single antiplatelet Rx with ASA unless needs to be held for further drift in H/H or active bleeding manifests 5. History DVT: -On Eliquis, adjusted for renal function -Now with decreased H/H -Will check stool guaiac and monitor H/H with daily CBC -May need to hold AC if further drop in counts.
[2016-08-25 09:48] LABS: PLATELET ESTIMATE ADEQUATE (NORMAL)
[2016-08-25] MEDS: ERTAPENEM SODIUM 1 GM in SODIUM CHLORIDE 50 ML IVPB SCH (10:00)
[2016-08-25] MEDS ORDERED: PANTOPRAZOLE 40 MG TABLET (FP) PO SCH (10:00)
[2016-08-25] MEDS ORDERED: PT OWN MED DRAWER 7, Y5N ONE ×2 (10:02→18:39)
[2016-08-25] MEDS: TAMSULOSIN HCL 0.4 MG CAP.ER.24H (FP) PO SCH (10:03)
[2016-08-25] MEDS: DOCUSATE SODIUM 100 MG CAPSULE (FP) PO SCH ×2 (10:03→22:34)
[2016-08-25] MEDS: DULoxetine HCL 30 MG CAPSULE.DR (FP) PO SCH (10:04)
[2016-08-25] MEDS: APIXABAN 2.5 MG TABLET PO SCH (10:04)
[2016-08-25] MEDS: ASPIRIN COATED 81 MG TABLET.EC PO SCH (10:04)
[2016-08-25] MEDS: predniSONE 10 MG TABLET (UD) PO SCH (10:04)
[2016-08-25] MEDS: METOPROLOL TARTRATE 25 MG TABLET (FP) PO SCH ×2 (10:05→22:34)
[2016-08-25] MEDS: amLODIPine BESYLATE 10 MG TABLET (FP) PO SCH (10:05)
[2016-08-25] MEDS: FERROUS SO4 325 MG TABLET (FP) PO SCH ×2 (10:05→22:34)
[2016-08-25] MEDS: POLYETHYLENE GLYCOL 3350 119 GM BTL PO SCH (10:06)
[2016-08-25] MEDS: NYSTATIN POWDER 100,000 UNITS/GM - 15 GM TOPICAL POWDER TP SCH (10:06)
--- NOTE | 2016-08-25 11:38 | PN ---
Progress Note, Physician History of Present Illness: stable no complaints off and on on bipap tolerating ventimask and nc - Current Medication List Current Medications: Active Medications Acetaminophen (Tylenol -) 650 mg PO Q6H PRN PRN Reason: PAIN Acetylcysteine (Mucomyst 20 Oral / Inh Use Only*) 600 mg NEB QIDR [facility] Last Admin: 08/25/16 06:56 Dose: Not Given Albuterol Sulfate (Ventolin 0.083% Nebulizer Soln -) 1 amp NEB QIDR [facility] Last Admin: 08/25/16 06:56 Dose: Not Given Amlodipine Besylate (Norvasc -) 10 mg PO DAILY [facility] Last Admin: 08/25/16 10:05 Dose: 10 mg Apixaban (Eliquis -) 2.5 mg PO BID [facility] Last Admin: 08/25/16 10:04 Dose: 2.5 mg Aspirin (Ecotrin -) 81 mg PO DAILY [facility] Last Admin: 08/25/16 10:04 Dose: 81 mg Atorvastatin Calcium (Lipitor -) 20 mg PO HS [facility] Last Admin: 08/24/16 22:17 Dose: 20 mg Bupropion HCl (Wellbutrin Xl -) 150 mg PO DAILY [facility] Last Admin: 08/25/16 10:05 Dose: 150 mg Docusate Sodium (Colace -) 100 mg PO BID [facility] Last Admin: 08/25/16 10:03 Dose: 100 mg Duloxetine HCl (Cymbalta -) 60 mg PO DAILY [facility] Last Admin: 08/25/16 10:04 Dose: 60 mg Epoetin Keith (Procrit -) 10,000 unit IVPUSH MoWeFr@10 [facility] Ferrous Sulfate (Feosol -) 325 mg PO BID [facility] Last Admin: 08/25/16 10:05 Dose: 325 mg Guaifenesin (Mucinex -) 600 mg PO BID PRN Ertapenem 1 gm/ Sodium (Chloride) 50 mls @ 50 mls/hr IVPB DAILY [facility] PRN Reason: Protocol Last Admin: 08/25/16 10:00 Dose: 50 mls/hr Insulin Aspart (Novolog Vial Sliding Scale -) 1 vial SQ ACHS [facility] PRN Reason: Protocol Last Admin: 08/25/16 11:26 Dose: Not Given Metoprolol Tartrate (Lopressor -) 25 mg PO BID [facility] Last Admin: 08/25/16 10:05 Dose: 25 mg Nystatin (Nystop Powder -) 1 applic TP DAILY [facility] Last Admin: 08/25/16 10:06 Dose: 1 applic Pantoprazole Sodium (Protonix -) 40 mg PO DAILY [facility] Last Admin: 08/25/16 10:05 Dose: 40 mg Polyethylene Glycol (Miralax (For Daily Use) -) 17 gm PO DAILY [facility] Last Admin: 08/25/16 10:06 Dose: 17 gm Prednisone (Deltasone -) 30 mg PO DAILY [facility] Last Admin: 08/25/16 10:04 Dose: 30 mg Senna (Senna -) 2 tab PO DAILY PRN PRN Reason: CONSTIPATION Sodium Chloride ([place] Nasal [place] -) 2 spray NS Q12H PRN PRN Reason: NASAL CONGESTION Tamsulosin HCl (Flomax -) 0.4 mg PO DAILY@0830 [facility] Last Admin: 08/25/16 10:03 Dose: 0.4 mg - Objective Vital Signs: Vital Signs Temperature 97.9 F 08/25/16 05:00 Pulse Rate 68 08/25/16 05:01 Respiratory Rate 22 08/25/16 05:01 Blood Pressure 126/51 08/25/16 05:00 O2 Sat by Pulse Oximetry (%) 100 08/24/16 21:00 Constitutional: Yes: No Distress, Calm Cardiovascular: Yes: Pulse Irregular Respiratory: Yes: On BiPap, On Nasal O2, On Venti-Mask, Poor Air Entry Gastrointestinal: Yes: Normal Bowel Sounds, Soft Extremities: Yes: Other Labs: CBC, BMP 08/25/16 05:35 08/25/16 05:35 INR, PTT INR 1.23 (0.82-1.09) H 08/23/16 18:59 Assessment/Plan - Problems (1) Acute and chronic respiratory failure with hypoxia Code(s): J96.21 - ACUTE AND CHRONIC RESPIRATORY FAILURE WITH HYPOXIA (2) Pneumonia Code(s): J18.9 - PNEUMONIA, UNSPECIFIED ORGANISM Qualifiers: Pneumonia type: due to unspecified organism Laterality: left Lung location: lower lobe of lung Qualified Code(s): J18.1 - Lobar pneumonia, unspecified organism (3) Pleural effusion Code(s): J90 - PLEURAL EFFUSION, NOT ELSEWHERE CLASSIFIED (4) Acute on chronic diastolic (congestive) heart failure Code(s): I50.33 - ACUTE ON CHRONIC DIASTOLIC (CONGESTIVE) HEART FAILURE (5) COPD (chronic obstructive pulmonary disease) Code(s): J44.9 - CHRONIC OBSTRUCTIVE PULMONARY DISEASE, UNSPECIFIED (6) Renal failure (ARF), acute on chronic Code(s): N17.9 - ACUTE KIDNEY FAILURE, UNSPECIFIED N18.9 - CHRONIC KIDNEY DISEASE, UNSPECIFIED (7) Diabetes Code(s): E11.9 - TYPE 2 DIABETES MELLITUS WITHOUT COMPLICATIONS Qualifiers: Diabetes mellitus type: type 2 Diabetes mellitus complication status: with kidney complications Diabetes mellitus complication detail: with chronic kidney disease (8) Atrial fibrillation Code(s): I48.91 - UNSPECIFIED ATRIAL FIBRILLATION 9 bilateral cellulitis of the legs plan continue abx await for all results to be back once stable will stop abx rest as per primary team
--- NOTE | 2016-08-25 15:08 | PN ---
Physical Exam: SUBJECTIVE: Patient seen and examined at bedside. OBJECTIVE: Vital Signs Period Temp Pulse Resp BP Sys/[place] Pulse Ox Last 24 Hr 97.7 F-98.8 F 65-90 20-22 107-131/51-70 96-100 GENERAL: The patient is awake, alert, and fully oriented, in no acute distress. LUNGS: Diffuse rhonchi. HEART: Regular, in sinus rhythm. S1, S2 without murmur, rub or gallop. ABDOMEN: Soft, nontender, nondistended, normoactive bowel sounds, no guarding, no rebound EXTREMITIES: 2+ pulses, warm, well-perfused, 1+ bilateral edema; lower extremity erythema seen previously almost completely resolved NEUROLOGICAL: Cranial nerves II through XII grossly intact. Normal speech, gait not observed. Laboratory Results - last 24 hr 08/24/16 08/24/16 08/25/16 17:22 22:22 00:20 WBC 11.9 H RBC 2.60 L Hgb 7.2 L D Hct 22.5 L MCV 86.5 MCHC 32.0 RDW 16.2 H Plt Count 277 MPV 7.5 Neutrophils % 93.3 H Lymphocytes % 2.8 L D Monocytes % 3.7 L D Eosinophils % 0.0 Basophils % 0.2 Differential Comment Platelet Estimate Sodium Potassium Chloride Carbon Dioxide Anion Gap BUN Creatinine Creat Clearance w eGFR POC Glucometer 347 187 Random Glucose Calcium Phosphorus Magnesium Total Bilirubin AST ALT Alkaline Phosphatase Total Protein Albumin 08/25/16 08/25/16 08/25/16 00:20 05:23 05:35 WBC 11.8 H RBC 2.57 L Hgb 7.2 L Hct 22.0 L MCV 85.8 MCHC 32.9 RDW 15.8 Plt Count 287 MPV 7.3 L Neutrophils % 93.0 H Lymphocytes % 3.0 L Monocytes % 4.0 Eosinophils % Basophils % Differential Comment Manual diff done Platelet Estimate Adequate Sodium 138 Potassium 4.8 Chloride 92 L Carbon Dioxide 35 H Anion Gap 11 BUN 119 H* Creatinine 3.7 H Creat Clearance w eGFR 16.18 POC Glucometer 202 Random Glucose 124 H Calcium 7.7 L Phosphorus 6.5 H Magnesium 3.2 H Total Bilirubin 0.3 D AST 6 L D ALT 7 L Alkaline Phosphatase 59 Total Protein 4.9 L Albumin 2.2 L 08/25/16 05:35 WBC RBC Hgb Hct MCV MCHC RDW Plt Count MPV Neutrophils % Lymphocytes % Monocytes % Eosinophils % Basophils % Differential Comment Platelet Estimate Sodium 140 Potassium 4.9 Chloride 92 L Carbon Dioxide 34 H Anion Gap 14 BUN 120 H* Creatinine 3.5 H Creat Clearance w eGFR POC Glucometer Random Glucose 121 H Calcium 8.2 L Phosphorus Magnesium Total Bilirubin AST ALT Alkaline Phosphatase Total Protein Albumin Active Medications Generic Name Dose Route Start Last Admin Trade Name Freq PRN Reason Stop Dose Admin Acetaminophen 650 mg 08/24/16 13:17 Tylenol - PO Q6H PRN PAIN Acetylcysteine 600 mg 08/24/16 18:00 08/25/16 11:05 Mucomyst 20 Oral / Inh Use Only* NEB 600 mg QIDR [facility] Administration Albuterol Sulfate 1 amp 08/24/16 18:00 08/25/16 11:05 Ventolin 0.083% Nebulizer Soln - NEB 1 amp QIDR [facility] Administration Amlodipine Besylate 10 mg 08/25/16 10:00 08/25/16 10:05 Norvasc - PO 10 mg DAILY [facility] Administration Apixaban 2.5 mg 08/24/16 22:00 08/25/16 10:04 Eliquis - PO 2.5 mg BID [facility] Administration Aspirin 81 mg 08/25/16 10:00 08/25/16 10:04 Ecotrin - PO 81 mg DAILY [facility] Administration Atorvastatin Calcium 20 mg 08/24/16 22:00 08/24/16 22:17 Lipitor - PO 20 mg HS [facility] Administration Bupropion HCl 150 mg 08/25/16 10:00 08/25/16 10:05 Wellbutrin Xl - PO 150 mg DAILY [facility] Administration Docusate Sodium 100 mg 08/24/16 22:00 08/25/16 10:03 Colace - PO 100 mg BID [facility] Administration Duloxetine HCl 60 mg 08/25/16 10:00 08/25/16 10:04 Cymbalta - PO 60 mg DAILY [facility] Administration Epoetin Keith 10,000 unit 08/25/16 10:00 Procrit - IVPUSH MoWeFr@10 [facility] Ferrous Sulfate 325 mg 08/24/16 22:00 08/25/16 10:05 Feosol - PO 325 mg BID [facility] Administration Guaifenesin 600 mg 08/24/16 13:17 Mucinex - PO BID PRN Ertapenem 1 gm/ Sodium 50 mls @ 50 mls/hr 08/24/16 17:30 08/25/16 10:00 Chloride IVPB 50 mls/hr DAILY [facility] Administration Protocol Insulin Aspart 1 vial 08/24/16 16:30 08/25/16 11:26 Novolog Vial Sliding Scale - SQ Not Given ACHS [facility] Protocol Metoprolol Tartrate 25 mg 08/24/16 22:00 08/25/16 10:05 Lopressor - PO 25 mg BID [facility] Administration Nystatin 1 applic 08/25/16 10:00 08/25/16 10:06 Nystop Powder - TP 1 applic DAILY [facility] Administration Pantoprazole Sodium 40 mg 08/25/16 10:00 08/25/16 10:05 Protonix - PO 40 mg DAILY [facility] Administration Polyethylene Glycol 17 gm 08/25/16 10:00 08/25/16 10:06 Miralax (For Daily Use) - PO 17 gm DAILY [facility] Administration Prednisone 30 mg 08/25/16 10:00 08/25/16 10:04 Deltasone - PO 30 mg DAILY [facility] Administration Senna 2 tab 08/24/16 13:17 Senna - PO DAILY PRN CONSTIPATION Sodium Chloride 2 spray 08/24/16 13:17 [place] Nasal [place] - NS Q12H PRN NASAL CONGESTION Tamsulosin HCl 0.4 mg 08/25/16 08:30 08/25/16 10:03 Flomax - PO 0.4 mg DAILY@0830 [facility] Administration ASSESSMENT/PLAN 75 year-old male with a significant PMH of HTN, HLD, CAD s/p stents x 2 (2014), diastolic heart failure, afib, COPD, recurrent episodes of respiratory failure requiring intubation, h/o GI bleed, h/o DVT and PE, CKD previously requiring HD , urinary retention with chronic lilly. Most recently hospitalized 08/11-08/21/16 and discharged to [facility]. Readmitted 08/24/16 after reportedly refusing to take medications and poor PO intake. Anemia --Hgb has dropped 9.6->7.2 in 2 days --seen and evaluated by Dr. Fry who thinks active bleeding component; he presented patient with risks/benefits of EGD/colon; patient declines these interventions --protonix PO BID --consider transfusion if Hgb <7 or patient becomes symptomatic --hold Eliquis; recheck h/h in am Chronic respiratory failure Asthma/COPD --functioning at baseline --requires continuous BIPAP alternating with NRB --continue prednisone PO 30mg --duonebs, mucomyst Chronic diastolic heart failure New right pleural effusion --05/16/16 Echo: LV function normal, EF 57%; RV function normal; trace MR, trace TR --on last admission required aggressive diuresis for bilateral pleural effusions, L>R; left effusion drained with pigtail catheter subsequently removed --on this admission, has new right-sided pleural effusion --continue to hold diuretics due to KARLOS and since respiratory status is at baseline Acute on chronic renal failure --BUN/Cr 120/3.5 (baseline Cr 1.5) --continue to hold diuretics --continue to hold fluids due to right pleural effusion HCAP --08/25 CXR: RLL consolidation --WBC trending down; afebrile --continue Ertapenem (day #2) Paroxysmal atrial fibrillation --rate well-controlled --continue metoprolol --hold Eliquis (see above) Hypertension --BP well-controlled --continued amlodipine, metoprolol Hyperlipidemia --continue Lipitor CAD s/p stents --continue ASA, Lipitor h/o DVT and PE --hold Eliquis F/E/N Fluids: PO intake is adequate Electrolytes: replete as indicated Nutrition: diabetic, low sodium DVT prophylaxis: Eliquis on hold Dispo: continues to require inpatient care. Discussed with Master MachinistMgr Mendy sheldon at [facility]. Full Code. Visit type - Emergency Visit Emergency Visit: Yes ED Registration Date: 08/23/16 Care time: The patient presented to the Emergency Department on the above date and was hospitalized for further evaluation of their emergent condition. - New Patient This patient is new to me today: No - Critical Care Critical Care patient: No
--- NOTE | 2016-08-25 16:13 | CONSULT ---
Consult - text type - Consultation Consultation Note: Renal Consult for KARLOS on CKD This is a 75 year old Gentleman with PMhx of CKD (Hx of KARLOS requiring dialysis) , Hypertension, COPD on O2, BPH, Gout, CAD, Diastolic CHF who presented from Rehab with acute Resp Failure and found to have KARLOS on CKD. Pt s/p recent admission for HF that was managed with diuretics. Pt has chronic indwelling lilly in place. No NSAID or Contrast exposure noted. Pt feels better today on O2. Denies any abd pain or flank pian. Oral intake is poor. No fever or chills. No diarrhea. No chest pain, mild sob, No N/V. Torsemide held on admission. Started on Abx for PNA. PMhx: as above Allergies: NKDA Family hx: NC Social hx: No T/A/D ROS: as per HPI, all other pertinent ros negative Home Meds: Home Medications Medication Instructions Recorded Aa/Hydrolyzed Collagen, Whey [Lps 960 ml PO BID 08/11/16 Neutral Flavor Liquid] Acetaminophen 650 mg PO Q6H PRN 08/11/16 Albuterol 2.5/Ipratropium 0.5 1 neb IH TID 08/11/16 [Duoneb -] Amlodipine Besylate [Norvasc -] 10 mg PO DAILY 08/11/16 Apixaban [Eliquis] 2.5 mg PO BID 08/11/16 Aspirin [Aspirin EC] 81 mg PO DAILY 08/11/16 Bupropion HCl [Bupropion Xl] 150 mg PO DAILY 08/11/16 Docusate Sodium [Colace -] 100 mg PO BID 08/11/16 Duloxetine HCl 60 mg PO DAILY 08/11/16 Epoetin Keith [Epogen] 10,000 unit IM MOWEFR 08/11/16 Ferrous Sulfate 325 mg PO BID 08/11/16 Fluticasone/Vilanterol [Breo 1 each IH DAILY 08/11/16 Ellipta 100-25 Mcg INH] Guaifenesin [Mucinex] 600 mg PO Q12H 08/11/16 Mineral Oil/Hydrophil Petrolat 50 gm TP BID 08/11/16 [Aquaphor Healing Ointment] Nystatin Powder [Nystop Powder -] 60 gm TP DAILY 08/11/16 Pantoprazole Sodium [Protonix] 40 mg PO DAILY 08/11/16 Polyethylene Glycol 3350 [Miralax 17 gm PO DAILY 08/11/16 119 gm Btl -] Prednisone 30 mg PO DAILY 08/11/16 Sennosides [Evac-U-Gen] 17.2 mg PO DAILY 08/11/16 Sodium Chloride Nasal [place] [[place] 2 spray NS Q12H PRN 08/11/16 [place] Nasal [place] -] Tamsulosin HCl [Flomax] 0.4 mg PO DAILY 08/11/16 Acetylcysteine Po/INH 20% 600 mg [facility] QIDR #120 vial 08/21/16 [Mucomyst 20 Oral / INH Use Only*] Atorvastatin Ca [Lipitor] 20 mg PO HS #30 tablet 08/21/16 Metoprolol Tartrate [Lopressor -] 25 mg PO BID #60 tablet 08/21/16 Torsemide 80 mg PO BID #60 cap 08/21/16 Vital Signs Temperature 98.4 F 08/25/16 13:01 Pulse Rate 67 08/25/16 13:01 Respiratory Rate 22 08/25/16 13:01 Blood Pressure 125/65 08/25/16 13:01 O2 Sat by Pulse Oximetry (%) 96 08/25/16 10:50 Intake & Output 08/22/16 08/23/16 08/24/16 08/25/16 23:59 23:59 23:59 23:59 Intake Total 250 600 Output Total 100 900 500 Balance 150 -300 -500 Weight 208 lb 208 lb 214 lb 2 oz Gen: NAD on facemask O2 HEENT: NC/AT, Dry MM, No JVD CVS: RRR, No M/R Lungs: Course BS, no wheeze, no rales Abd: soft, obese, NT/ND Ext: Trace LE edema, no cyanosis or clubbing Neuro: AAOx3, no focal defects CBC, BMP 08/25/16 05:35 08/25/16 05:35 Laboratory Tests 08/25/16 05:35 Calcium 8.2 L Current Medications Acetaminophen (Tylenol -) 650 mg PO Q6H PRN PRN Reason: PAIN Acetylcysteine (Mucomyst 20 Oral / Inh Use Only*) 600 mg NEB QIDR [facility] Last Admin: 08/25/16 11:05 Dose: 600 mg Albuterol Sulfate (Ventolin 0.083% Nebulizer Soln -) 1 amp [facility] QIDR [facility] Last Admin: 08/25/16 11:05 Dose: 1 amp Amlodipine Besylate (Norvasc -) 10 mg PO DAILY [facility] Last Admin: 08/25/16 10:05 Dose: 10 mg Apixaban (Eliquis -) 2.5 mg PO BID [facility] Last Admin: 08/25/16 10:04 Dose: 2.5 mg Aspirin (Ecotrin -) 81 mg PO DAILY [facility] Last Admin: 08/25/16 10:04 Dose: 81 mg Atorvastatin Calcium (Lipitor -) 20 mg PO HS [facility] Last Admin: 08/24/16 22:17 Dose: 20 mg Bupropion HCl (Wellbutrin Xl -) 150 mg PO DAILY [facility] Last Admin: 08/25/16 10:05 Dose: 150 mg Docusate Sodium (Colace -) 100 mg PO BID [facility] Last Admin: 08/25/16 10:03 Dose: 100 mg Duloxetine HCl (Cymbalta -) 60 mg PO DAILY [facility] Last Admin: 08/25/16 10:04 Dose: 60 mg Epoetin Keith (Procrit -) 10,000 unit IVPUSH MoWeFr@10 [facility] Ferrous Sulfate (Feosol -) 325 mg PO BID [facility] Last Admin: 08/25/16 10:05 Dose: 325 mg Guaifenesin (Mucinex -) 600 mg PO BID PRN Ertapenem 1 gm/ Sodium (Chloride) 50 mls @ 50 mls/hr IVPB DAILY [facility] PRN Reason: Protocol Last Admin: 08/25/16 10:00 Dose: 50 mls/hr Insulin Aspart (Novolog Vial Sliding Scale -) 1 vial SQ ACHS [facility] PRN Reason: Protocol Last Admin: 08/25/16 11:26 Dose: Not Given Metoprolol Tartrate (Lopressor -) 25 mg PO BID [facility] Last Admin: 08/25/16 10:05 Dose: 25 mg Nystatin (Nystop Powder -) 1 applic TP DAILY [facility] Last Admin: 08/25/16 10:06 Dose: 1 applic Pantoprazole Sodium (Protonix -) 40 mg PO DAILY [facility] Last Admin: 08/25/16 10:05 Dose: 40 mg Polyethylene Glycol (Miralax (For Daily Use) -) 17 gm PO DAILY [facility] Last Admin: 08/25/16 10:06 Dose: 17 gm Prednisone (Deltasone -) 30 mg PO DAILY [facility] Last Admin: 08/25/16 10:04 Dose: 30 mg Senna (Senna -) 2 tab PO DAILY PRN PRN Reason: CONSTIPATION Sodium Chloride ([place] Nasal [place] -) 2 spray NS Q12H PRN PRN Reason: NASAL CONGESTION Tamsulosin HCl (Flomax -) 0.4 mg PO DAILY@0830 [facility] Last Admin: 08/25/16 10:03 Dose: 0.4 mg A/P 75 year old Gentleman with PMhx of CKD (Hx of KARLOS requiring dialysis), Hypertension, COPD on O2, BPH, Gout, CAD, Diastolic CHF who presented from Rehab with acute Resp Failure and found to have KARLOS on CKD. #Acute on Chronic Renal Failure Urine studies consistent with pre-renal injury as it has a low FeNa no overt proteinuria high bun/cr ratio likely due to volume depletion but also made worse by the face the pt is on steroids despite presence of pleural effusions pt does not have significant total body volume overload agree with holding diuretics at this time no IVF given effusions Trend BUN/Cr Renal US showed no obstruction #Pleural effusions in setting of low albumin and 3rd spacing monitor for now, supportive care with O2 holding diuretics for now #Diastolic CHF Cardiology following #Acute on Chronic Anemia check stool occult blood and iron studies continue Epogen 3x weekly #COPD/PNA Abx as per ID supportive care Thank you Will follow Melvin Johnson DO
[2016-08-25] MEDS: EPOETIN ALFA 10,000 UNIT/1 ML VIAL IVPUSH SCH (16:55)
--- NOTE | 2016-08-25 17:30 | CON.GI ---
Consult Consult Specialty:: Gastroenterology Referred by:: Michelle Drummond NP Reason for Consultation:: Anemia - History of Present Illness Chief Complaint: Dyspnea History of Present Illness: 75M transferred from [facility] for SOB is noted to have a Hct drop from 9.6 to 7.2 in two days. He denies abdominal pain, vomiting, melena, rectal bleeding, dysphagia, early satiety and heartburn but does admit to chronic constipation. His mother of collon cancer requiring a colostomy. His last colonoscopy and was done by Dr Roger in 2003 and found only moderate sigmoid diverticulosis and enlarged hemorrhoids. He has never had a EGD. - History Source History Provided By: Patient Limitations to Obtaining History: No Limitations - Past Medical History ORTHOTIST OR PROSTHETIST: Yes: Peripheral Neuropathy Cardio/Vascular: Yes: CAD, CHF (diastolic), HTN, Hyperlipdemia, Other (LLE DVT) Pulmonary: Yes: COPD, O2 Dependent, Sleep Apnea Gastrointestinal: Yes: Constipation, Diverticulosis, Hemorrhoids Renal/: Yes: Renal Inusuff, BPH, Renal Calculi Heme/Onc: Yes: Anemia Psych: Yes: Anxiety Dermatology: Yes: Cellulitis (cellulitis during 02/2016 admission) Additional Medical History: Obesity - Past Surgical History Past Surgical History: Yes: None, Stent (coronary stenting) - Alcohol/Substance Use Hx Alcohol Use: No History of Substance Use: reports: None - Smoking History Smoking history: Former smoker (quit 2006) Have you smoked in the past 12 months: No Aproximately how many cigarettes per day: 0 If you are a former smoker, when did you quit?: 6 years - Social History Usual Living Arrangement: With Spouse ADL: Independent 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 Place of : [facility] History of Recent Travel: No Home Medications - Allergies Allergies/Adverse Reactions: Allergies Allergy/AdvReac Type Severity Reaction Status Date / Time Penicillins Allergy Verified 08/23/16 18:44 - Home Medications Home Medications: Ambulatory Orders Aa/Hydrolyzed Collagen, Whey [Lps Neutral Flavor Liquid] 960 ml PO BID 08/11/16 Acetaminophen 650 mg PO Q6H PRN 08/11/16 Albuterol 2.5/Ipratropium 0.5 [Duoneb -] 1 neb IH TID 08/11/16 Amlodipine Besylate [Norvasc -] 10 mg PO DAILY 08/11/16 Apixaban [Eliquis] 2.5 mg PO BID 08/11/16 Aspirin [Aspirin EC] 81 mg PO DAILY 08/11/16 Bupropion HCl [Bupropion Xl] 150 mg PO DAILY 08/11/16 Docusate Sodium [Colace -] 100 mg PO BID 08/11/16 Duloxetine HCl 60 mg PO DAILY 08/11/16 Epoetin Keith [Epogen] 10,000 unit IM MOWEFR 08/11/16 Ferrous Sulfate 325 mg PO BID 08/11/16 Fluticasone/Vilanterol [Breo Ellipta 100-25 Mcg INH] 1 each IH DAILY 08/11/16 Guaifenesin [Mucinex] 600 mg PO Q12H 08/11/16 Mineral Oil/Hydrophil Petrolat [Aquaphor Healing Ointment] 50 gm TP BID Nystatin Powder [Nystop Powder -] 60 gm TP DAILY 08/11/16 Pantoprazole Sodium [Protonix] 40 mg PO DAILY 08/11/16 Polyethylene Glycol 3350 [Miralax 119 gm Btl -] 17 gm PO DAILY 08/11/16 Prednisone 30 mg PO DAILY 08/11/16 Sennosides [Evac-U-Gen] 17.2 mg PO DAILY 08/11/16 Sodium Chloride Nasal Reeves [[place] Nasal [place] -] 2 spray NS Q12H PRN 08/23 Tamsulosin HCl [Flomax] 0.4 mg PO DAILY 08/11/16 Acetylcysteine Po/INH 20% [Mucomyst 20 Oral / INH Use Only*] 600 mg NEB QIDR # 120 vial 08/21/16 Atorvastatin Ca [Lipitor] 20 mg PO HS #30 tablet 08/21/16 Metoprolol Tartrate [Lopressor -] 25 mg PO BID #60 tablet 08/21/16 Torsemide 80 mg PO BID #60 cap 08/21/16 Family Disease History - Family Disease History Family Disease History: CA: Mother ( of colon cancer), Other: Father ( parkinson's disease) Review of Systems - Review of Systems Constitutional: reports: Lethargy, Malaise, Weakness HENT: reports: No Symptoms Neck: reports: No Symptoms Cardiovascular: reports: Shortness of Breath Respiratory: reports: Cough, Exercise Intolerance, Snoring, SOB, SOB on Exertion Gastrointestinal: reports: Constipation Genitourinary: reports: No Symptoms Musculoskeletal: reports: Back Pain, Joint Pain Neurological: reports: Parasthesia Hematology/Lymphatic: reports: No Symptoms Psychiatric: reports: Anxiety Physical Exam-GI Vital Signs: Vital Signs Temperature 97.4 F L 08/25/16 17:00 Pulse Rate 72 08/25/16 17:00 Respiratory Rate 20 08/25/16 17:00 Blood Pressure 112/67 08/25/16 17:00 O2 Sat by Pulse Oximetry (%) 96 08/25/16 10:50 Current Medications Generic Name Dose Route Start Last Admin Trade Name Freq PRN Reason Stop Dose Admin Acetaminophen 650 mg 08/24/16 13:17 Tylenol - PO Q6H PRN PAIN Acetylcysteine 600 mg 08/24/16 18:00 08/25/16 11:05 Mucomyst 20 Oral / Inh Use Only* NEB 600 mg QIDR LESLEE Administration Albuterol Sulfate 1 amp 08/24/16 18:00 08/25/16 11:05 Ventolin 0.083% Nebulizer Soln - NEB 1 amp QIDR LESLEE Administration Amlodipine Besylate 10 mg 08/25/16 10:00 08/25/16 10:05 Norvasc - PO 10 mg DAILY LESLEE Administration Apixaban 2.5 mg 08/24/16 22:00 08/25/16 10:04 Eliquis - PO 2.5 mg BID LESLEE Administration Aspirin 81 mg 08/25/16 10:00 08/25/16 10:04 Ecotrin - PO 81 mg DAILY LESLEE Administration Atorvastatin Calcium 20 mg 08/24/16 22:00 08/24/16 22:17 Lipitor - PO 20 mg HS LESLEE Administration Bupropion HCl 150 mg 08/25/16 10:00 08/25/16 10:05 Wellbutrin Xl - PO 150 mg DAILY LESLEE Administration Docusate Sodium 100 mg 08/24/16 22:00 08/25/16 10:03 Colace - PO 100 mg BID LESLEE Administration Duloxetine HCl 60 mg 08/25/16 10:00 08/25/16 10:04 Cymbalta - PO 60 mg DAILY LESLEE Administration Epoetin Keith 10,000 unit 08/25/16 10:00 08/25/16 16:55 Procrit - IVPUSH 10,000 unit MoWeFr@10 LESLEE Administration Ferrous Sulfate 325 mg 08/24/16 22:00 08/25/16 10:05 Feosol - PO 325 mg BID LESLEE Administration Guaifenesin 600 mg 08/24/16 13:17 Mucinex - PO BID PRN Ertapenem 1 gm/ Sodium 50 mls @ 50 mls/hr 08/24/16 17:30 08/25/16 10:00 Chloride IVPB 50 mls/hr DAILY LESLEE Administration Protocol Insulin Aspart 1 vial 08/24/16 16:30 08/25/16 16:55 Novolog Vial Sliding Scale - SQ 3 units ACHS LESLEE Administration Protocol Metoprolol Tartrate 25 mg 08/24/16 22:00 08/25/16 10:05 Lopressor - PO 25 mg BID LESLEE Administration Nystatin 1 applic 08/25/16 10:00 08/25/16 10:06 Nystop Powder - TP 1 applic DAILY LESLEE Administration Pantoprazole Sodium 40 mg 08/25/16 10:00 08/25/16 10:05 Protonix - PO 40 mg DAILY LESLEE Administration Polyethylene Glycol 17 gm 08/25/16 10:00 08/25/16 10:06 Miralax (For Daily Use) - PO 17 gm DAILY LESLEE Administration Prednisone 30 mg 08/25/16 10:00 08/25/16 10:04 Deltasone - PO 30 mg DAILY LESLEE Administration Senna 2 tab 08/24/16 13:17 Senna - PO DAILY PRN CONSTIPATION Sodium Chloride 2 spray 08/24/16 13:17 [place] Nasal [place] - NS Q12H PRN NASAL CONGESTION Tamsulosin HCl 0.4 mg 08/25/16 08:30 08/25/16 10:03 Flomax - PO 0.4 mg DAILY@0830 LESLEE Administration CBC,CMP WBC 11.8 K/mm3 (4.0-10.0) H 08/25/16 05:35 RBC 2.57 M/mm3 (4.00-5.60) L 08/25/16 05:35 Hgb 7.2 GM/dL (11.7-16.9) L 08/25/16 05:35 Hct 22.0 % (35.4-49) L 08/25/16 05:35 MCV 85.8 fl (80-96) 08/25/16 05:35 MCHC 32.9 g/dl (32.0-35.9) 08/25/16 05:35 RDW 15.8 % (11.9-15.9) 08/25/16 05:35 Plt Count 287 K/MM3 (134-434) 08/25/16 05:35 MPV 7.3 fl (7.5-11.1) L 08/25/16 05:35 Neutrophils % 93.0 % (42.8-82.8) H 08/25/16 05:35 Lymphocytes % 3.0 % (8-40) L 08/25/16 05:35 Monocytes % 4.0 % (3.8-10.2) 08/25/16 05:35 Eosinophils % 0.0 % (0-4.5) 08/25/16 00:20 Basophils % 0.2 % (0-2.0) 08/25/16 00:20 Differential Comment Manual diff done 08/25/16 05:35 Platelet Estimate Adequate (NORMAL) 08/25/16 05:35 Platelet Comment No clumping noted 08/23/16 18:59 Sodium 140 mmol/L (136-145) 08/25/16 05:35 Potassium 4.9 mmol/L (3.5-5.1) 08/25/16 05:35 Chloride 92 mmol/L (98-107) L 08/25/16 05:35 Carbon Dioxide 34 mmol/L (21-32) H 08/25/16 05:35 Anion Gap 14 (8-16) 08/25/16 05:35 BUN 120 mg/dL (7-18) H* 08/25/16 05:35 Creatinine 3.5 mg/dL (0.7-1.3) H 08/25/16 05:35 Creat Clearance w eGFR 16.18 (>60) 08/25/16 00:20 POC Glucometer 191 UNITS (()) 08/25/16 16:40 Random Glucose 121 mg/dL (74-106) H 08/25/16 05:35 Hemoglobin A1c % 5.5 % (4.8-6.0) D 08/24/16 05:20 Lactic Acid 1.992 mmol/L (0.4-2.0) 08/23/16 21:56 Calcium 8.2 mg/dL (8.5-10.1) L 08/25/16 05:35 Phosphorus 6.5 mg/dL (2.5-4.9) H 08/25/16 00:20 Magnesium 3.2 mg/dL (1.8-2.4) H 08/25/16 00:20 Total Bilirubin 0.3 mg/dL (0.2-1.0) D 08/25/16 00:20 AST 6 U/L (15-37) L D 08/25/16 00:20 ALT 7 U/L (12-78) L 08/25/16 00:20 Alkaline Phosphatase 59 U/L (45-117) 08/25/16 00:20 Creatine Kinase 9 IU/L (39-308) L 08/24/16 05:20 Troponin I < 0.02 ng/ml (0.00-0.05) 08/24/16 05:20 B-Natriuretic Peptide 4010.08 pg/ml (5-125) H 08/23/16 18:59 Total Protein 4.9 g/dl (6.4-8.2) L 08/25/16 00:20 Albumin 2.2 g/dl (3.4-5.0) L 08/25/16 00:20 Lipase 105 U/L (73-393) 08/23/16 18:59 Constitutional: Yes: Anxious, Other (has rebreather mask) Eyes: Yes: Conjunctiva Clear HENT: Yes: Atraumatic Neck: Yes: Supple Cardiovascular: Yes: Regular Rate and Rhythm Respiratory: Yes: On Venti-Mask, Rhonchi Gastrointestinal Inspection: Yes: Distention (obese) ...Auscultate: Yes: Normoactive Bowel Sounds ...Palpate: Yes: Soft, Other (nontender) ...Rectal Exam: Yes: Guaiac Positive (brown/black strongly guaiac positive) Edema: Yes Edema: LUE: 1+, RUE: 1+ Labs: CBC, BMP 08/25/16 05:35 08/25/16 05:35 INR, PTT INR 1.23 (0.82-1.09) H 08/23/16 18:59 Assessment/Plan 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 I have told him that possible etiologies include an ulcer, erosive gastritis/duodenitis or GERD , bleeding vascular ectasias, portal gastropathy (SINGH) or malignancies including colon cancer which afflicted his mother. I hav proposed that he undergo both and EGD and a colonoscopy as more accurate options than a UGI and BE. I have discussed the potential for such complications as perforation and hemorrhage and respiratory failure with the potential subsequent need for transfusions, surgery and ventilator support. I answered all of his question after which he is on a position to make an informed consent. He has declined all of these diagnostics and acknowledges that an underlying malignancy may be missed. Given his refusal empiric PPI therapy should be given. Please recall us if he changes his mind.
[2016-08-25] MEDS: ATORVASTATIN CA 20 MG TABLET (FP) PO SCH (22:34)
[2016-08-25] MEDS: PANTOPRAZOLE 40 MG TABLET (FP) PO SCH (22:34)
[2016-08-26] MEDS: ACETYLCYSTEINE 20% 200MG/ML 4 ML VIAL *FOR ORAL / INH USE ONLY NEB SCH ×4 (00:10→18:30)
[2016-08-26] MEDS: ALBUTEROL SO4 0.083% IH SOL 2.5 MG/3 ML VIAL.NEB. NEB SCH ×4 (00:10→18:30)
[2016-08-26] MEDS: INSULIN SLIDING SCALE (NOVOLOG) 1 VIAL SQ SCH ×4 (06:48→22:00)
[2016-08-26] MEDS ORDERED: PT OWN MED DRAWER 7, Y5N ONE (08:49)
[2016-08-26 08:57] LABS: MCH 28.9 pg (25.7-33.7); MEAN CELL VOLUME 87.6 fl (80-96); PLATELET COUNT 315 K/MM3 (134-434); WHITE BLOOD COUNT 10.8 K/mm3 (4.0-10.0)
[2016-08-26 09:20] LABS: ALBUMIN 2.4 g/dl (3.4-5.0); BILIRUBIN,TOTAL 0.3 mg/dL (0.2-1.0); CALCIUM 8.2 mg/dL (8.5-10.1); COCKROFT - GAULT 27.38; CREATININE 3.3 mg/dL (0.7-1.3); FERRITIN 478.175 ng/ml (16.4-293.9); MAGNESIUM 3.6 mg/dL (1.8-2.4); PHOSPHOROUS 5.8 mg/dL (2.5-4.9)
[2016-08-26 09:22] LABS: TOT PROT 5.2 g/dl (6.4-8.2)
--- NOTE | 2016-08-26 10:16 | PN ---
Progress Note, Physician History of Present Illness: seen and examined today. anxious, agitated. but alert and oriented. frustrated with being in the hospital. no overnight events. no new complaints. - Current Medication List Current Medications: Active Medications Acetaminophen (Tylenol -) 650 mg PO Q6H PRN PRN Reason: PAIN Acetylcysteine (Mucomyst 20 Oral / Inh Use Only*) 600 mg NEB QIDR [facility] Last Admin: 08/26/16 06:49 Dose: 600 mg Albuterol Sulfate (Ventolin 0.083% Nebulizer Soln -) 1 amp NEB QIDR [facility] Last Admin: 08/26/16 06:49 Dose: 1 amp Amlodipine Besylate (Norvasc -) 10 mg PO DAILY [facility] Last Admin: 08/25/16 10:05 Dose: 10 mg Apixaban (Eliquis -) 2.5 mg PO BID [facility] Last Admin: 08/25/16 10:04 Dose: 2.5 mg Aspirin (Ecotrin -) 81 mg PO DAILY [facility] Last Admin: 08/25/16 10:04 Dose: 81 mg Atorvastatin Calcium (Lipitor -) 20 mg PO HS [facility] Last Admin: 08/25/16 22:34 Dose: 20 mg Bupropion HCl (Wellbutrin Xl -) 150 mg PO DAILY [facility] Last Admin: 08/25/16 10:05 Dose: 150 mg Docusate Sodium (Colace -) 100 mg PO BID [facility] Last Admin: 08/25/16 22:34 Dose: 100 mg Duloxetine HCl (Cymbalta -) 60 mg PO DAILY [facility] Last Admin: 08/25/16 10:04 Dose: 60 mg Epoetin Keith (Procrit -) 10,000 unit IVPUSH MoWeFr@10 [facility] Last Admin: 08/25/16 16:55 Dose: 10,000 unit Ferrous Sulfate (Feosol -) 325 mg PO BID [facility] Last Admin: 08/25/16 22:34 Dose: 325 mg Guaifenesin (Mucinex -) 600 mg PO BID PRN Ertapenem 1 gm/ Sodium (Chloride) 50 mls @ 50 mls/hr IVPB DAILY [facility] PRN Reason: Protocol Last Admin: 08/25/16 10:00 Dose: 50 mls/hr Insulin Aspart (Novolog Vial Sliding Scale -) 1 vial SQ ACHS [facility] PRN Reason: Protocol Last Admin: 08/26/16 06:48 Dose: Not Given Metoprolol Tartrate (Lopressor -) 25 mg PO BID [facility] Last Admin: 08/25/16 22:34 Dose: 25 mg Nystatin (Nystop Powder -) 1 applic TP DAILY [facility] Last Admin: 08/25/16 10:06 Dose: 1 applic Pantoprazole Sodium (Protonix -) 40 mg PO BID [facility] Last Admin: 08/25/16 22:34 Dose: 40 mg Polyethylene Glycol (Miralax (For Daily Use) -) 17 gm PO DAILY [facility] Last Admin: 08/25/16 10:06 Dose: 17 gm Prednisone (Deltasone -) 30 mg PO DAILY [facility] Last Admin: 08/25/16 10:04 Dose: 30 mg Senna (Senna -) 2 tab PO DAILY PRN PRN Reason: CONSTIPATION Sodium Chloride ([place] Nasal [place] -) 2 spray NS Q12H PRN PRN Reason: NASAL CONGESTION Tamsulosin HCl (Flomax -) 0.4 mg PO DAILY@0830 [facility] [place] Last Admin: 08/25/16 10:03 Dose: 0.4 mg - Objective Vital Signs: Vital Signs Temperature 97 F L 08/26/16 05:17 Pulse Rate 68 08/26/16 05:17 Respiratory Rate 20 08/26/16 05:17 Blood Pressure 132/63 08/26/16 05:17 O2 Sat by Pulse Oximetry (%) 97 08/25/16 21:00 Constitutional: Yes: No Distress, Calm, Obese Eyes: Yes: Conjunctiva Clear, EOM Intact, PERRL HENT: Yes: Atraumatic, Normocephalic Neck: Yes: Supple, Trachea Midline Cardiovascular: Yes: Regular Rate and Rhythm, S1, S2. No: Bradycardia, Tachycardia, Pulse Irregular, Bruit, JVD, Gallop, Murmur, Rub, S3, S4, Varicosities Respiratory: Yes: Regular, Diminished, On Venti-Mask. No: Rales, Rhonchi, SOB, Wheezes Gastrointestinal: Yes: Normal Bowel Sounds, Soft. No: Distention, Tenderness Musculoskeletal: Yes: Muscle Weakness Edema: No Peripheral Pulses WNL: Yes Peripheral Pulses: Left Doralis Pedis: 2+, Right Dorsalis Pedis: 2+ Integumentary: Yes: Venous Stasis Changes Neurological: Yes: Alert, Oriented Psychiatric: Yes: Alert, Oriented, Agitated Labs: CBC, BMP 08/26/16 08:10 08/26/16 08:10 INR, PTT INR 1.23 (0.82-1.09) H 08/23/16 18:59 - ....Imaging Chest X-ray: Report Reviewed, Image Reviewed EKG: Report Reviewed, Image Reviewed Other: Report Reviewed, Image Reviewed (tele-nsr, sinus arrhythmia, apcs) Assessment/Plan IMP: Acute on chronic exacerbation COPD, Right lower lobe PNA Acute on chronic renal failure, suspected ATN from periods of relative hypotension Anemia CAD s/p PCI History of DVT REC: SOB/Respiratory failure-AE COPD, RLL PNA, pleural effusions, chronic diastolic CHF -Steroids as per Pulm -Receiving Abx -hold diuresis given intravascular depletion TARYN on CKD -intravascular depletion secondary to diuretics, component of elevated bun secondary to steroids -monitor bun/creat, electrolytes -hold diuretics -nephrology following -No PIPER/ARB -Avoid hypotension Anemia: with h/o DVT/PE and CAD with stents -Hgb trended down to 7s -GI evaluated, strong guaiac positive black/brown stool, pt declined invasive diagnostics -on eliquis for prior DVT, in light of anemia/GI bleeding will transfuse 1 unit PRBC, switch eliquis to heparin bridge to coumadin -if H/H drops again will need to strongly consider dc of full AC -cont ASA 81mg daily for prior stents CAD s/p PCI:stable -Cont single antiplatelet Rx with ASA unless needs to be held for further drift in H/H or active bleeding manifests
[2016-08-26] MEDS: amLODIPine BESYLATE 10 MG TABLET (FP) PO SCH (10:20)
[2016-08-26] MEDS: DULoxetine HCL 30 MG CAPSULE.DR (FP) PO SCH (10:20)
[2016-08-26] MEDS: DOCUSATE SODIUM 100 MG CAPSULE (FP) PO SCH ×2 (10:20→22:37)
[2016-08-26] MEDS: TAMSULOSIN HCL 0.4 MG CAP.ER.24H (FP) PO SCH (10:21)
[2016-08-26] MEDS: PANTOPRAZOLE 40 MG TABLET (FP) PO SCH ×2 (10:21→22:30)
[2016-08-26] MEDS: POLYETHYLENE GLYCOL 3350 119 GM BTL PO SCH (10:21)
[2016-08-26] MEDS: predniSONE 10 MG TABLET (UD) PO SCH (10:21)
[2016-08-26] MEDS: METOPROLOL TARTRATE 25 MG TABLET (FP) PO SCH (10:22)
[2016-08-26] MEDS: ERTAPENEM SODIUM 1 GM in SODIUM CHLORIDE 50 ML IVPB SCH (10:22)
[2016-08-26] MEDS: FERROUS SO4 325 MG TABLET (FP) PO SCH ×2 (10:22→22:30)
[2016-08-26] MEDS: ASPIRIN COATED 81 MG TABLET.EC PO SCH (10:22)
[2016-08-26] MEDS: NYSTATIN POWDER 100,000 UNITS/GM - 15 GM TOPICAL POWDER TP SCH (10:32)
[2016-08-26] MEDS ORDERED: HEPARIN NA (PORCINE) 5,000 UNITS/ML 1ML VIAL IVPUSH PRN ×2 (10:33→11:28)
[2016-08-26 10:36] LABS: C-REACTIVE PROTEIN 5.5 MG/DL (0.00-0.3)
--- NOTE | 2016-08-26 10:39 | PN ---
Progress Note (short form) - Note Progress Note: Subjective: The patient was seen and examined at the bedside he reports improving shortness of breath. Hgb stable 7.2 Evaluated by GI yesterday with positive stool guiac. Patient has refused all GI workup. Continue Protonix Discussed anticoagulation for DVT/PE with Dr. Ferrer. Will optimize Hgb and give 1u PRBC. Eliquis discontinued. Start Heparin gtt and bridge to Coumadin. Monitor CBC and stop heparin gtt/coumadin if any drop in hgb occurs Current Medications Generic Name Dose Route Start Last Admin Trade Name Freq PRN Reason Stop Dose Admin Acetaminophen 650 mg 08/24/16 13:17 Tylenol - PO Q6H PRN PAIN Acetylcysteine 600 mg 08/24/16 18:00 08/26/16 06:49 Mucomyst 20 Oral / Inh Use Only* NEB 600 mg QIDR LESLEE Administration Albuterol Sulfate 1 amp 08/24/16 18:00 08/26/16 06:49 Ventolin 0.083% Nebulizer Soln - NEB 1 amp QIDR LESLEE Administration Amlodipine Besylate 10 mg 08/25/16 10:00 08/26/16 10:20 Norvasc - PO 10 mg DAILY LESLEE Administration Aspirin 81 mg 08/25/16 10:00 08/26/16 10:22 Ecotrin - PO 81 mg DAILY LESLEE Administration Atorvastatin Calcium 20 mg 08/24/16 22:00 08/25/16 22:34 Lipitor - PO 20 mg HS LESLEE Administration Bupropion HCl 150 mg 08/25/16 10:00 08/26/16 10:33 Wellbutrin Xl - PO 150 mg DAILY LESLEE Administration Docusate Sodium 100 mg 08/24/16 22:00 08/26/16 10:20 Colace - PO Not Given BID LESLEE Duloxetine HCl 60 mg 08/25/16 10:00 08/26/16 10:20 Cymbalta - PO 60 mg DAILY LESLEE Administration Epoetin Keith 10,000 unit 08/25/16 10:00 08/25/16 16:55 Procrit - IVPUSH 10,000 unit MoWeFr@10 LESLEE Administration Ferrous Sulfate 325 mg 08/24/16 22:00 08/26/16 10:22 Feosol - PO 325 mg BID LESLEE Administration Guaifenesin 600 mg 08/24/16 13:17 Mucinex - PO BID PRN Heparin Sodium (Porcine) 1,000 unit 08/26/16 10:33 Heparin - IVPUSH PRN PRN Heparin Heparin Sodium (Porcine) 5,000 unit 08/26/16 10:33 Heparin - IVPUSH PRN PRN Heparin Ertapenem 1 gm/ Sodium 50 mls @ 50 mls/hr 08/24/16 17:30 08/26/16 10:22 Chloride IVPB 50 mls/hr DAILY LESLEE Administration Protocol Heparin Sodium (Porcine) 25, 500 mls @ 20 mls/hr 08/26/16 10:45 000 unit/ Sodium Chloride IV TITR LESLEE Protocol 1,000 UNIT/HR Insulin Aspart 1 vial 08/24/16 16:30 08/26/16 06:48 Novolog Vial Sliding Scale - SQ Not Given ACHS [facility] Protocol Metoprolol Tartrate 25 mg 08/24/16 22:00 08/26/16 10:22 Lopressor - PO 25 mg BID [facility] Administration Nystatin 1 applic 08/25/16 10:00 08/26/16 10:32 Nystop Powder - TP 1 applic DAILY [facility] Administration Pantoprazole Sodium 40 mg 08/25/16 22:00 08/26/16 10:21 Protonix - PO 40 mg BID [facility] Administration Polyethylene Glycol 17 gm 08/25/16 10:00 08/26/16 10:21 Miralax (For Daily Use) - PO Not Given DAILY [facility] Prednisone 30 mg 08/25/16 10:00 08/26/16 10:21 Deltasone - PO 30 mg DAILY [facility] Administration Senna 2 tab 08/24/16 13:17 Senna - PO DAILY PRN CONSTIPATION Sodium Chloride 2 spray 08/24/16 13:17 [place] Nasal [place] - NS Q12H PRN NASAL CONGESTION Tamsulosin HCl 0.4 mg 08/25/16 08:30 08/26/16 10:21 Flomax - PO 0.4 mg DAILY@0830 [facility] Administration Warfarin Sodium 5 mg 08/26/16 18:00 Coumadin - PO DAILY@1800 [facility] Objective: Vital Signs Period Temp Pulse Resp BP Sys/[place] Pulse Ox Last 24 Hr 97 F-98.4 F 67-72 20-22 112-132/58-67 96-97 Physical Exam: General: NAD, A&Ox3 Lungs: Decreased breath sounds on the left Heart: RRR, S1S2 Abd: Soft, non-tender, non-distended. Normoactive bowel sounds Ext: B/l lower extremity edema. Chronic venous stasis changes CBCD WBC 10.8 K/mm3 (4.0-10.0) H 08/26/16 08:10 RBC 2.48 M/mm3 (4.00-5.60) L 08/26/16 08:10 Hgb 7.2 GM/dL (11.7-16.9) L 08/26/16 08:10 Hct 21.7 % (35.4-49) L 08/26/16 08:10 MCV 87.6 fl (80-96) 08/26/16 08:10 MCHC 33.0 g/dl (32.0-35.9) 08/26/16 08:10 RDW 16.0 % (11.9-15.9) H 08/26/16 08:10 Plt Count 315 K/MM3 (134-434) 08/26/16 08:10 MPV 7.0 fl (7.5-11.1) L 08/26/16 08:10 CMP Sodium 144 mmol/L (136-145) 08/26/16 08:10 Potassium 4.4 mmol/L (3.5-5.1) 08/26/16 08:10 Chloride 95 mmol/L (98-107) L 08/26/16 08:10 Carbon Dioxide 36 mmol/L (21-32) H 08/26/16 08:10 Anion Gap 13 (8-16) 08/26/16 08:10 BUN 138 mg/dL (7-18) H* 08/26/16 08:10 Creatinine 3.3 mg/dL (0.7-1.3) H 08/26/16 08:10 Creat Clearance w eGFR 18.47 (>60) 08/26/16 08:10 Random Glucose 102 mg/dL (74-106) 08/26/16 08:10 Calcium 8.2 mg/dL (8.5-10.1) L 08/26/16 08:10 Total Bilirubin 0.3 mg/dL (0.2-1.0) 08/26/16 08:10 AST 10 U/L (15-37) L D 08/26/16 08:10 ALT 7 U/L (12-78) L 08/26/16 08:10 Alkaline Phosphatase 57 U/L (45-117) 08/26/16 08:10 Total Protein 5.2 g/dl (6.4-8.2) L 08/26/16 08:10 Albumin 2.4 g/dl (3.4-5.0) L 08/26/16 08:10 CARDIAC ENZYMES Creatine Kinase 9 IU/L (39-308) L 08/24/16 05:20 Troponin I < 0.02 ng/ml (0.00-0.05) 08/24/16 05:20 Microbiology 08/23/16 19:10 Blood - Peripheral Venous Blood Culture - Preliminary NO GROWTH OBTAINED AFTER 48 HOURS, INCUBATION TO CONTINUE FOR 3 DAYS. 08/23/16 19:10 Blood - Peripheral Venous Blood Culture - Preliminary NO GROWTH OBTAINED AFTER 48 HOURS, INCUBATION TO CONTINUE FOR 3 DAYS. 08/23/16 20:26 Urine - Urine Clean Catch Urine Culture - Final NO GROWTH OBTAINED 08/23/16 21:56 Urine For Antigen Detection Legionella Antigen - Final 08/23/16 21:56 Urine For Antigen Detection Streptococcus pneumoniae Antigen (M - Final Assessment: This is a 75 year old male with PMHx of HTN, hyperlipidemia, CAD s/ p stenting x2 (2014), diastolic heart failure, a.fib, COPD, respiratory failure requiring intubation (02/2016-04/2016), GI bleed, h/o DVT and PE, urinary retention with chronic lilly catheter who presented to the ED with shortness of breath and refusal to take any po medications. Plan: 1) GI: Drop in Hgb to 7.2, now stable - Stool guiac per GI positive - Patient has refused GI workup including colonoscopy, EGD - Continue Protonix - Recommend 1u PRBC - Appreciate GI consult 2) ID: [id number] - Chest X-ray with RLL consolidation - Continue Ertapenem - Appreciate ID consult 3) Cardiology: Chronic diastolic heart failure - Hold diuretics as patient appears euvolemic DVT/PE - Was on Eliquis, will discontinue - Start Heparin gtt bridge to Coumadin as it has reversal agent if increase in GI bleeding New Right pleural effusion Paroxysmal a.fib HTN - Continue Metoprolol - Continue Norvasc Hyperlipidemia - Continue Lipitor 4) Pulmonary: Chronic respiratory failure - Continue Prednisone 30mg po daily - Continue Bipap alternating with NRB - Continue Duonebs - Continue Mucomyst - Appreciate pulmonary consult 4) : KARLOS on CKD - Baseline around Cr 1.5 - Continue to hold diuretics - Appreciate nephrology consult 5) F/E/N: - Monitor electrolytes - Diabetic/low sodium diet 6) Prophylaxis: - Start on Heparin gtt bridge to Coumadin - PT 7) Dispo: - Requires continued inpatient care - May benefit from LTAC CODE STATUS: FULL CODE Visit type - Emergency Visit Emergency Visit: Yes ED Registration Date: 08/23/16 Care time: The patient presented to the Emergency Department on the above date and was hospitalized for further evaluation of their emergent condition. - New Patient This patient is new to me today: Yes Date on this admission: 08/26/16 - Critical Care Critical Care patient: No
--- NOTE | 2016-08-26 11:49 | PN ---
Progress Note, Physician Chief Complaint: The patient lying in bed. Arousable, Ventimask in place. Maintains good urine output. - Current Medication List Current Medications: Active Medications Acetaminophen (Tylenol -) 650 mg PO Q6H PRN PRN Reason: PAIN Acetylcysteine (Mucomyst 20 Oral / Inh Use Only*) 600 mg NEB QIDR [facility] Last Admin: 08/26/16 06:49 Dose: 600 mg Albuterol Sulfate (Ventolin 0.083% Nebulizer Soln -) 1 amp NEB QIDR [facility] Last Admin: 08/26/16 06:49 Dose: 1 amp Amlodipine Besylate (Norvasc -) 10 mg PO DAILY [facility] Last Admin: 08/26/16 10:20 Dose: 10 mg Aspirin (Ecotrin -) 81 mg PO DAILY [facility] Last Admin: 08/26/16 10:22 Dose: 81 mg Atorvastatin Calcium (Lipitor -) 20 mg PO HS [facility] Last Admin: 08/25/16 22:34 Dose: 20 mg Bupropion HCl (Wellbutrin Xl -) 150 mg PO DAILY [facility] Last Admin: 08/26/16 10:33 Dose: 150 mg Docusate Sodium (Colace -) 100 mg PO BID [facility] Last Admin: 08/26/16 10:20 Dose: Not Given Duloxetine HCl (Cymbalta -) 60 mg PO DAILY [facility] Last Admin: 08/26/16 10:20 Dose: 60 mg Epoetin Keith (Procrit -) 10,000 unit IVPUSH MoWeFr@10 [facility] Last Admin: 08/25/16 16:55 Dose: 10,000 unit Ferrous Sulfate (Feosol -) 325 mg PO BID [facility] Last Admin: 08/26/16 10:22 Dose: 325 mg Guaifenesin (Mucinex -) 600 mg PO BID PRN Heparin Sodium (Porcine) (Heparin -) 1,000 unit IVPUSH PRN PRN PRN Reason: Heparin Heparin Sodium (Porcine) (Heparin -) 5,000 unit IVPUSH PRN PRN PRN Reason: Heparin Ertapenem 1 gm/ Sodium (Chloride) 50 mls @ 50 mls/hr IVPB DAILY [facility] PRN Reason: Protocol Last Admin: 08/26/16 10:22 Dose: 50 mls/hr Heparin Sodium (Porcine) 25, (000 unit/ Sodium Chloride) 500 mls @ 20 mls/hr IV TITR [facility]; 1,000 UNIT/HR PRN Reason: Protocol Insulin Aspart (Novolog Vial Sliding Scale -) 1 vial SQ ACHS [facility] PRN Reason: Protocol Last Admin: 08/26/16 06:48 Dose: Not Given Metoprolol Tartrate (Lopressor -) 25 mg PO BID [facility] Last Admin: 08/26/16 10:22 Dose: 25 mg Nystatin (Nystop Powder -) 1 applic TP DAILY [facility] Last Admin: 08/26/16 10:32 Dose: 1 applic Pantoprazole Sodium (Protonix -) 40 mg PO BID [facility] Last Admin: 08/26/16 10:21 Dose: 40 mg Polyethylene Glycol (Miralax (For Daily Use) -) 17 gm PO DAILY [facility] Last Admin: 08/26/16 10:21 Dose: Not Given Prednisone (Deltasone -) 30 mg PO DAILY [facility] Last Admin: 08/26/16 10:21 Dose: 30 mg Senna (Senna -) 2 tab PO DAILY PRN PRN Reason: CONSTIPATION Sodium Chloride ([place] Nasal [place] -) 2 spray NS Q12H PRN PRN Reason: NASAL CONGESTION Tamsulosin HCl (Flomax -) 0.4 mg PO DAILY@0830 [facility] Last Admin: 08/26/16 10:21 Dose: 0.4 mg Warfarin Sodium (Coumadin -) 5 mg PO DAILY@1800 [facility] - Objective Vital Signs: Vital Signs Temperature 97 F L 08/26/16 05:17 Pulse Rate 68 08/26/16 05:17 Respiratory Rate 20 08/26/16 05:17 Blood Pressure 132/63 08/26/16 05:17 O2 Sat by Pulse Oximetry (%) 97 08/25/16 21:00 Constitutional: Yes: Well Nourished, Moderate Distress HENT: Yes: Normocephalic Cardiovascular: Yes: S1, S2 Respiratory: Yes: Diminished, On Venti-Mask Gastrointestinal: Yes: Abdomen, Obese, Hypoactive Bowel Sounds Extremities: Yes: Delayed Capillary Refill Neurological: Yes: Confusion Labs: CBC, BMP 08/26/16 08:10 08/26/16 08:10 INR, PTT INR 1.23 (0.82-1.09) H 08/23/16 18:59 Assessment/Plan 75 y/o male with COPD, Pleural effusion, Hypoalbuminemia. Was on dialysis for KARLOS. Currently off the same. Significant azotemia, and most of it is Steroid dependent. The Electrolyte profile in acceptable range. No overt indication for restarting dialysis at this juncture. Will monitor the renal functions with you. Will hold off on the loop diuretics for now. Shi Hernandez MD
[2016-08-26 13:26] LABS: INR 1.16 (0.82-1.09); PROTHROMBIN TIME (PATIENT) 12.8 SEC (9.98-11.88)
--- NOTE | 2016-08-26 14:06 | PN ---
GI Progress Note Subjective: GI NOte: Remains dyspneic on ventimask. No abdominal pain. Corbin's Nicolasa was present. I infored her of Corbin's anemia due to bleeding and concerns about a potential underlying ulcer, AVM and malignancies among others. We also discussed the risks of EGD and colonoscopy and even a BE as an alternative and the fact that he could not safely undergo any of these at this time. - Objective Vital Signs: Vital Signs Temperature 97 F L 08/26/16 05:17 Pulse Rate 68 08/26/16 05:17 Respiratory Rate 20 08/26/16 05:17 Blood Pressure 132/63 08/26/16 05:17 O2 Sat by Pulse Oximetry (%) 97 08/25/16 21:00 Constitutional: Anxious ...Auscultate: Yes: Normoactive Bowel Sounds ...Palpate: Yes: Soft, Other (nontender) Labs: CBC, BMP 08/26/16 08:10 08/26/16 08:10 INR, PTT INR 1.16 (0.82-1.09) H 08/26/16 12:40 Assessment/Plan Anemia due to GI bleeding. Will continue empiric therapy and transfuse as necessary. If the patient can be cleared from a cardiopulmonary perspective then please recall us to reconsider EGD and colonoscopy. Nicolasa and Corbin were made to understand that he could have an underlying malignancy.
[2016-08-26] MEDS: HEPARIN - 25,000 UNIT in SODIUM CHLORIDE 495 ML IV SCH (16:14)
--- NOTE | 2016-08-26 17:57 | PN ---
Progress Note (short form) - Note Progress Note: Pulmonary: full note to follow. Events noted: pt readmitted 08/25 after being discharged 08/25. Severe COPD, acute on chronic respiratory failure pneumonia and effusions Right>Left, renal failure, GI bleeding (pt refusing endoscopy), anticoagulation being changed from Eliquis to Warfarin, diuretics being held in light of increased BUN and Creat (138; 3.3). Hct down to 21 and pt to receive transfusion. Sugest: consider right thoracentesis (left thoracentesis seems to have helped two weeks ago). If renal failure and fluid retention continue pt may need dialysis for fluid removal (as he did about 5 months ago). Continue current meds.
[2016-08-26] MEDS ORDERED: WARFARIN NA 5 MG TABLET (UD) PO SCH (18:00)
--- NOTE | 2016-08-26 18:46 | PN ---
Progress Note, Physician History of Present Illness: stable according to patient blood noted in stool gi involved n the case no other issues - Current Medication List Current Medications: Active Medications Acetaminophen (Tylenol -) 650 mg PO Q6H PRN PRN Reason: PAIN Acetylcysteine (Mucomyst 20 Oral / Inh Use Only*) 600 mg NEB QIDR [facility] Last Admin: 08/26/16 18:30 Dose: 600 mg Albuterol Sulfate (Ventolin 0.083% Nebulizer Soln -) 1 amp NEB QIDR [facility] Last Admin: 08/26/16 18:30 Dose: 1 amp Amlodipine Besylate (Norvasc -) 10 mg PO DAILY [facility] Last Admin: 08/26/16 10:20 Dose: 10 mg Aspirin (Ecotrin -) 81 mg PO DAILY [facility] Last Admin: 08/26/16 10:22 Dose: 81 mg Atorvastatin Calcium (Lipitor -) 20 mg PO HS [facility] Last Admin: 08/25/16 22:34 Dose: 20 mg Bupropion HCl (Wellbutrin Xl -) 150 mg PO DAILY [facility] Last Admin: 08/26/16 10:33 Dose: 150 mg Docusate Sodium (Colace -) 100 mg PO BID [facility] Last Admin: 08/26/16 10:20 Dose: Not Given Duloxetine HCl (Cymbalta -) 60 mg PO DAILY [facility] Last Admin: 08/26/16 10:20 Dose: 60 mg Epoetin Keith (Procrit -) 10,000 unit IVPUSH MoWeFr@10 [facility] Last Admin: 08/25/16 16:55 Dose: 10,000 unit Ferrous Sulfate (Feosol -) 325 mg PO BID [facility] Last Admin: 08/26/16 10:22 Dose: 325 mg Guaifenesin (Mucinex -) 600 mg PO BID PRN Heparin Sodium (Porcine) (Heparin -) 1,000 unit IVPUSH PRN PRN PRN Reason: Heparin Heparin Sodium (Porcine) (Heparin -) 5,000 unit IVPUSH PRN PRN PRN Reason: Heparin Ertapenem 1 gm/ Sodium (Chloride) 50 mls @ 50 mls/hr IVPB DAILY [facility] PRN Reason: Protocol Last Admin: 08/26/16 10:22 Dose: 50 mls/hr Heparin Sodium (Porcine) 25, (000 unit/ Sodium Chloride) 500 mls @ 20 mls/hr IV TITR [facility]; 1,000 UNIT/HR PRN Reason: Protocol Last Admin: 08/26/16 16:14 Dose: 20 mls/hr Insulin Aspart (Novolog Vial Sliding Scale -) 1 vial SQ ACHS [facility] PRN Reason: Protocol Last Admin: 08/26/16 17:16 Dose: 5 units Metoprolol Tartrate (Lopressor -) 25 mg PO BID [facility] Last Admin: 08/26/16 10:22 Dose: 25 mg Nystatin (Nystop Powder -) 1 applic TP DAILY [facility] Last Admin: 08/26/16 10:32 Dose: 1 applic Pantoprazole Sodium (Protonix -) 40 mg PO BID [facility] Last Admin: 08/26/16 10:21 Dose: 40 mg Polyethylene Glycol (Miralax (For Daily Use) -) 17 gm PO DAILY [facility] Last Admin: 08/26/16 10:21 Dose: Not Given Prednisone (Deltasone -) 30 mg PO DAILY [facility] Last Admin: 08/26/16 10:21 Dose: 30 mg Senna (Senna -) 2 tab PO DAILY PRN PRN Reason: CONSTIPATION Sodium Chloride ([place] Nasal [place] -) 2 spray NS Q12H PRN PRN Reason: NASAL CONGESTION Tamsulosin HCl (Flomax -) 0.4 mg PO DAILY@0830 [facility] Last Admin: 08/26/16 10:21 Dose: 0.4 mg Warfarin Sodium (Coumadin -) 5 mg PO DAILY@1800 [facility] Last Admin: 08/26/16 17:16 Dose: 5 mg - Objective Vital Signs: Vital Signs Temperature 97.7 F 08/26/16 18:00 Pulse Rate 74 08/26/16 18:00 Respiratory Rate 20 08/26/16 18:00 Blood Pressure 108/47 08/26/16 18:00 O2 Sat by Pulse Oximetry (%) 94 L 08/26/16 18:30 Constitutional: Yes: No Distress, Calm Cardiovascular: Yes: Pulse Irregular Respiratory: Yes: Regular, On BiPap, On Nasal O2, On Venti-Mask, SOB on Exertion Gastrointestinal: Yes: Normal Bowel Sounds, Soft Musculoskeletal: Yes: Other Extremities: Yes: Other Neurological: Yes: Alert, Oriented Psychiatric: Yes: Alert, Oriented Labs: CBC, BMP 08/26/16 08:10 08/26/16 08:10 INR, PTT INR 1.16 (0.82-1.09) H 08/26/16 12:40 Assessment/Plan - Problems (1) Acute and chronic respiratory failure with hypoxia Code(s): J96.21 - ACUTE AND CHRONIC RESPIRATORY FAILURE WITH HYPOXIA (2) Pneumonia Code(s): J18.9 - PNEUMONIA, UNSPECIFIED ORGANISM Qualifiers: Pneumonia type: due to unspecified organism Laterality: left Lung location: lower lobe of lung Qualified Code(s): J18.1 - Lobar pneumonia, unspecified organism (3) Pleural effusion Code(s): J90 - PLEURAL EFFUSION, NOT ELSEWHERE CLASSIFIED (4) Acute on chronic diastolic (congestive) heart failure Code(s): I50.33 - ACUTE ON CHRONIC DIASTOLIC (CONGESTIVE) HEART FAILURE (5) COPD (chronic obstructive pulmonary disease) Code(s): J44.9 - CHRONIC OBSTRUCTIVE PULMONARY DISEASE, UNSPECIFIED (6) Renal failure (ARF), acute on chronic Code(s): N17.9 - ACUTE KIDNEY FAILURE, UNSPECIFIED N18.9 - CHRONIC KIDNEY DISEASE, UNSPECIFIED (7) Diabetes Code(s): E11.9 - TYPE 2 DIABETES MELLITUS WITHOUT COMPLICATIONS Qualifiers: Diabetes mellitus type: type 2 Diabetes mellitus complication status: with kidney complications Diabetes mellitus complication detail: with chronic kidney disease (8) Atrial fibrillation Code(s): I48.91 - UNSPECIFIED ATRIAL FIBRILLATION 9 bilateral cellulitis of the legs plan [place] top all abx on sunday i think we should place bilateral pig tail cather for some time as patient continues to accumalate pleural fluid watch for blood in stools rest as per primary team
[2016-08-26] MEDS: ATORVASTATIN CA 20 MG TABLET (FP) PO SCH (22:30)
[2016-08-27] MEDS: ACETYLCYSTEINE 20% 200MG/ML 4 ML VIAL *FOR ORAL / INH USE ONLY NEB SCH ×5 (00:20→23:45)
[2016-08-27] MEDS: ALBUTEROL SO4 0.083% IH SOL 2.5 MG/3 ML VIAL.NEB. NEB SCH ×5 (00:20→23:45)
[2016-08-27] MEDS: METOPROLOL TARTRATE 25 MG TABLET (FP) PO SCH ×3 (01:40→22:10)
[2016-08-27 06:42] LABS: SERUM IRON 52 ug/dL (38-169); TOTAL IRON BINDING CAPACITY 194 ug/dL (250-450); UIBC 142 ug/dL (111-343)
[2016-08-27 07:06] LABS: MCH 28.6 pg (25.7-33.7); MCHC 32.9 g/dl (32.0-35.9); MEAN CELL VOLUME 87.1 fl (80-96); MEAN PLT VOLUME 7.4 fl (7.5-11.1); PLATELET COUNT 272 K/MM3 (134-434); WHITE BLOOD COUNT 9.6 K/mm3 (4.0-10.0)
[2016-08-27] MEDS: INSULIN SLIDING SCALE (NOVOLOG) 1 VIAL SQ SCH ×4 (07:23→22:09)
[2016-08-27 07:34] LABS: ALBUMIN 2.6 g/dl (3.4-5.0); BILIRUBIN,TOTAL 0.3 mg/dL (0.2-1.0); COCKROFT - GAULT 30.12; TOT PROT 5.1 g/dl (6.4-8.2)
[2016-08-27 08:57] LABS: INR 1.22 (0.82-1.09); PROTHROMBIN TIME (PATIENT) 13.5 SEC (9.98-11.88)
--- NOTE | 2016-08-27 09:27 | PN ---
Progress Note, Physician History of Present Illness: seen and examined today. more lethargic but wakes up and able to communicate. states he is not feeling better today. - Current Medication List Current Medications: Active Medications Acetaminophen (Tylenol -) 650 mg PO Q6H PRN PRN Reason: PAIN Acetylcysteine (Mucomyst 20 Oral / Inh Use Only*) 600 mg NEB QIDR [facility] Last Admin: 08/27/16 06:55 Dose: Not Given Albuterol Sulfate (Ventolin 0.083% Nebulizer Soln -) 1 amp NEB QIDR [facility] Last Admin: 08/27/16 06:55 Dose: 1 amp Amlodipine Besylate (Norvasc -) 10 mg PO DAILY [facility] Last Admin: 08/26/16 10:20 Dose: 10 mg Atorvastatin Calcium (Lipitor -) 20 mg PO HS [facility] Last Admin: 08/26/16 22:30 Dose: 20 mg Bupropion HCl (Wellbutrin Xl -) 150 mg PO DAILY [facility] Last Admin: 08/26/16 10:33 Dose: 150 mg Docusate Sodium (Colace -) 100 mg PO BID [facility] Last Admin: 08/26/16 22:37 Dose: 100 mg Duloxetine HCl (Cymbalta -) 60 mg PO DAILY [facility] Last Admin: 08/26/16 10:20 Dose: 60 mg Epoetin Keith (Procrit -) 10,000 unit IVPUSH MoWeFr@10 [facility] Last Admin: 08/25/16 16:55 Dose: 10,000 unit Ferrous Sulfate (Feosol -) 325 mg PO BID [facility] Last Admin: 08/26/16 22:30 Dose: 325 mg Guaifenesin (Mucinex -) 600 mg PO BID PRN Heparin Sodium (Porcine) (Heparin -) 1,000 unit IVPUSH PRN PRN PRN Reason: Heparin Last Admin: 08/27/16 00:00 Dose: 1,000 unit Heparin Sodium (Porcine) (Heparin -) 5,000 unit IVPUSH PRN PRN PRN Reason: Heparin Ertapenem 1 gm/ Sodium (Chloride) 50 mls @ 50 mls/hr IVPB DAILY [facility] PRN Reason: Protocol Last Admin: 08/26/16 10:22 Dose: 50 mls/hr Heparin Sodium (Porcine) 25, (000 unit/ Sodium Chloride) 500 mls @ 20 mls/hr IV TITR [facility]; 1,000 UNIT/HR PRN Reason: Protocol Last Admin: 08/27/16 00:00 Dose: 22 mls/hr Insulin Aspart (Novolog Vial Sliding Scale -) 1 vial SQ ACHS [facility] PRN Reason: Protocol Last Admin: 08/27/16 07:23 Dose: Not Given Metoprolol Tartrate (Lopressor -) 25 mg PO BID [facility] Last Admin: 08/27/16 01:40 Dose: 25 mg Nystatin (Nystop Powder -) 1 applic TP DAILY [facility] Last Admin: 08/26/16 10:32 Dose: 1 applic Pantoprazole Sodium (Protonix -) 40 mg PO BID [facility] Last Admin: 08/26/16 22:30 Dose: 40 mg Polyethylene Glycol (Miralax (For Daily Use) -) 17 gm PO DAILY [facility] Last Admin: 08/26/16 10:21 Dose: Not Given Prednisone (Deltasone -) 30 mg PO DAILY [facility] Last Admin: 08/26/16 10:21 Dose: 30 mg Senna (Senna -) 2 tab PO DAILY PRN PRN Reason: CONSTIPATION Sodium Chloride ([place] Nasal [place] -) 2 spray NS Q12H PRN PRN Reason: NASAL CONGESTION Tamsulosin HCl (Flomax -) 0.4 mg PO DAILY@0830 [facility] Last Admin: 08/26/16 10:21 Dose: 0.4 mg Warfarin Sodium (Coumadin -) 5 mg PO DAILY@1800 [facility] Last Admin: 08/26/16 17:16 Dose: 5 mg - Objective Vital Signs: Vital Signs Temperature 96.2 F L 08/27/16 05:42 Pulse Rate 70 08/27/16 05:42 Respiratory Rate 20 08/27/16 05:42 Blood Pressure 110/50 08/27/16 05:42 O2 Sat by Pulse Oximetry (%) 95 08/26/16 21:00 Constitutional: Yes: No Distress, Calm, Obese Eyes: Yes: Conjunctiva Clear, EOM Intact, PERRL HENT: Yes: Atraumatic, Normocephalic Neck: Yes: Supple, Trachea Midline Cardiovascular: Yes: Regular Rate and Rhythm, S1, S2. No: Bradycardia, Tachycardia, Pulse Irregular, Bruit, JVD, Gallop, Murmur, Rub, S3, S4, Varicosities Respiratory: Yes: Regular, Diminished, On BiPap. No: Rales, Rhonchi, Wheezes Gastrointestinal: Yes: Normal Bowel Sounds, Soft. No: Distention, Tenderness Musculoskeletal: Yes: Muscle Weakness Edema: No Peripheral Pulses WNL: Yes Peripheral Pulses: Left Doralis Pedis: 2+, Right Dorsalis Pedis: 2+ Neurological: Yes: Oriented, Lethargy, Other (lethargic but arousable). No: Alert Psychiatric: Yes: Oriented. No: Alert Labs: CBC, BMP 08/27/16 05:35 08/27/16 05:35 INR, PTT INR 1.22 (0.82-1.09) H 08/27/16 06:00 - ....Imaging Chest X-ray: Report Reviewed, Image Reviewed EKG: Report Reviewed, Image Reviewed Other: Report Reviewed, Image Reviewed (tele-nsr, apcs, pvcs) Assessment/Plan IMP: Acute on chronic exacerbation COPD, Right lower lobe PNA Acute on chronic renal failure, suspected ATN from periods of relative hypotension Anemia CAD s/p PCI History of DVT REC: SOB/Respiratory failure-AE COPD, RLL PNA, pleural effusions, chronic diastolic CHF -Steroids as per Pulm -Receiving Abx -hold diuresis given intravascular depletion -possible thoracentesis planned, will hold ASA (last dose 08/26) and will stop coumadin for now. If decision made not to pursue thoracentesis then need to resume ASA 81mg daily and Coumadin ulises. TARYN on CKD -intravascular depletion secondary to diuretics, component of elevated bun secondary to steroids -creatinine trended down today, likely improved by intravascular volume expansion with PRBCs yesterday -monitor bun/creat, electrolytes -hold diuretics -nephrology following -No PIPER/ARB -Avoid hypotension Anemia: with h/o DVT/PE and CAD with stents -Hgb trended down to 7s s/p PRBCs yesterday with improvement to Hgb >8 -GI evaluated, strong guaiac positive black/brown stool, pt declined invasive diagnostics -was on eliquis for prior DVT, in light of anemia/GI bleeding will transfuse 1 unit PRBC, changed eliquis to heparin bridge to coumadin -will hold coumadin for now for possible thoracentesis -if H/H drops again will need to strongly consider dc of full AC -plan to hold then resume ASA as above CAD s/p PCI:stable -plan to hold then resume ASA as above
[2016-08-27] MEDS: predniSONE 10 MG TABLET (UD) PO SCH (09:37)
[2016-08-27] MEDS: amLODIPine BESYLATE 10 MG TABLET (FP) PO SCH (09:37)
[2016-08-27] MEDS: DULoxetine HCL 30 MG CAPSULE.DR (FP) PO SCH (09:37)
[2016-08-27] MEDS: PANTOPRAZOLE 40 MG TABLET (FP) PO SCH ×2 (09:38→22:10)
[2016-08-27] MEDS: POLYETHYLENE GLYCOL 3350 119 GM BTL PO SCH (09:38)
[2016-08-27] MEDS: FERROUS SO4 325 MG TABLET (FP) PO SCH ×2 (09:38→22:08)
[2016-08-27] MEDS: DOCUSATE SODIUM 100 MG CAPSULE (FP) PO SCH ×2 (09:38→22:11)
[2016-08-27] MEDS: TAMSULOSIN HCL 0.4 MG CAP.ER.24H (FP) PO SCH (09:38)
[2016-08-27] MEDS: NYSTATIN POWDER 100,000 UNITS/GM - 15 GM TOPICAL POWDER TP SCH (09:39)
[2016-08-27] MEDS: HEPARIN - 25,000 UNIT in SODIUM CHLORIDE 495 ML IV SCH ×2 (09:40)
[2016-08-27] MEDS: ERTAPENEM SODIUM 1 GM in SODIUM CHLORIDE 50 ML IVPB SCH (10:32)
--- NOTE | 2016-08-27 12:08 | PN ---
Progress Note (short form) - Note Progress Note: Subjective: The patient was seen and examined at the bedside he reports improving shortness of breath. Hgb 8.2 s/p 1u PRBC Remains on Heparin gtt Hold ASA and Coumadin for possible right thoracentesis IR consult placed Current Medications Generic Name Dose Route Start Last Admin Trade Name Freq PRN Reason Stop Dose Admin Acetaminophen 650 mg 08/24/16 13:17 Tylenol - PO Q6H PRN PAIN Acetylcysteine 600 mg 08/24/16 18:00 08/27/16 06:55 Mucomyst 20 Oral / Inh Use Only* NEB Not Given QIDR [facility] Albuterol Sulfate 1 amp 08/24/16 18:00 08/27/16 06:55 Ventolin 0.083% Nebulizer Soln - NEB 1 amp QIDR [facility] Administration Amlodipine Besylate 10 mg 08/25/16 10:00 08/27/16 09:37 Norvasc - PO 10 mg DAILY [facility] Administration Atorvastatin Calcium 20 mg 08/24/16 22:00 08/26/16 22:30 Lipitor - PO 20 mg HS [facility] Administration Bupropion HCl 150 mg 08/25/16 10:00 08/27/16 09:39 Wellbutrin Xl - PO 150 mg DAILY [facility] Administration Docusate Sodium 100 mg 08/24/16 22:00 08/27/16 09:38 Colace - PO 100 mg BID [facility] Administration Duloxetine HCl 60 mg 08/25/16 10:00 08/27/16 09:37 Cymbalta - PO 60 mg DAILY [facility] Administration Epoetin Keith 10,000 unit 08/25/16 10:00 08/25/16 16:55 Procrit - IVPUSH 10,000 unit MoWeFr@10 [facility] Administration Ferrous Sulfate 325 mg 08/24/16 22:00 08/27/16 09:38 Feosol - PO 325 mg BID [facility] Administration Guaifenesin 600 mg 08/24/16 13:17 Mucinex - PO BID PRN Heparin Sodium (Porcine) 1,000 unit 08/26/16 10:33 08/27/16 00:00 Heparin - IVPUSH 1,000 unit PRN PRN Administration Heparin Heparin Sodium (Porcine) 5,000 unit 08/26/16 11:28 Heparin - IVPUSH PRN PRN Heparin Ertapenem 1 gm/ Sodium 50 mls @ 50 mls/hr 08/24/16 17:30 08/27/16 10:32 Chloride IVPB 50 mls/hr DAILY [facility] Administration Protocol Heparin Sodium (Porcine) 25, 500 mls @ 20 mls/hr 08/26/16 11:45 08/27/16 09:40 000 unit/ Sodium Chloride IV 22 mls/hr TITR [facility] Administration Protocol 1,000 UNIT/HR Insulin Aspart 1 vial 08/24/16 16:30 08/27/16 11:41 Novolog Vial Sliding Scale - SQ Not Given ACHS [facility] Protocol Metoprolol Tartrate 25 mg 08/24/16 22:00 08/27/16 09:38 Lopressor - PO 25 mg BID [facility] Administration Nystatin 1 applic 08/25/16 10:00 08/27/16 09:39 Nystop Powder - TP 1 applic DAILY [facility] Administration Pantoprazole Sodium 40 mg 08/25/16 22:00 08/27/16 09:38 Protonix - PO 40 mg BID [facility] Administration Polyethylene Glycol 17 gm 08/25/16 10:00 08/27/16 09:38 Miralax (For Daily Use) - PO 17 gm DAILY [facility] Administration Prednisone 30 mg 08/25/16 10:00 08/27/16 09:37 Deltasone - PO 30 mg DAILY [facility] Administration Senna 2 tab 08/24/16 13:17 Senna - PO DAILY PRN CONSTIPATION Sodium Chloride 2 spray 08/24/16 13:17 [place] Nasal [place] - NS Q12H PRN NASAL CONGESTION Tamsulosin HCl 0.4 mg 08/25/16 08:30 08/27/16 09:38 Flomax - PO 0.4 mg DAILY@0830 [facility] Administration Objective: Vital Signs Period Temp Pulse Resp BP Sys/[place] Pulse Ox Last 24 Hr 96.2 F-98 F 60-77 20-20 105-124/47-71 94-95 Physical Exam: General: NAD, A&Ox3 Lungs: Decreased breath sounds b/l R>L Heart: RRR, S1S2 Abd: Soft, non-tender, non-distended. Normoactive bowel sounds Ext: B/l lower extremity edema. Chronic venous stasis changes CBCD WBC 9.6 K/mm3 (4.0-10.0) 08/27/16 05:35 RBC 2.87 M/mm3 (4.00-5.60) L 08/27/16 05:35 Hgb 8.2 GM/dL (11.7-16.9) L D 08/27/16 05:35 Hct 25.0 % (35.4-49) L D 08/27/16 05:35 MCV 87.1 fl (80-96) 08/27/16 05:35 MCHC 32.9 g/dl (32.0-35.9) 08/27/16 05:35 RDW 16.0 % (11.9-15.9) H 08/27/16 05:35 Plt Count 272 K/MM3 (134-434) 08/27/16 05:35 MPV 7.4 fl (7.5-11.1) L 08/27/16 05:35 CMP Sodium 145 mmol/L (136-145) 08/27/16 05:35 Potassium 4.3 mmol/L (3.5-5.1) 08/27/16 05:35 Chloride 100 mmol/L (98-107) 08/27/16 05:35 Carbon Dioxide 38 mmol/L (21-32) H 08/27/16 05:35 Anion Gap 7 (8-16) L 08/27/16 05:35 BUN 136 mg/dL (7-18) H* 08/27/16 05:35 Creatinine 3.0 mg/dL (0.7-1.3) H 08/27/16 05:35 Creat Clearance w eGFR 20.62 (>60) 08/27/16 05:35 Random Glucose 106 mg/dL (74-106) 08/27/16 05:35 Calcium 8.0 mg/dL (8.5-10.1) L 08/27/16 05:35 Total Bilirubin 0.3 mg/dL (0.2-1.0) 08/27/16 05:35 AST 14 U/L (15-37) L D 08/27/16 05:35 ALT 9 U/L (12-78) L D 08/27/16 05:35 Alkaline Phosphatase 59 U/L (45-117) 08/27/16 05:35 Total Protein 5.1 g/dl (6.4-8.2) L 08/27/16 05:35 Albumin 2.6 g/dl (3.4-5.0) L 08/27/16 05:35 CARDIAC ENZYMES Creatine Kinase 9 IU/L (39-308) L 08/24/16 05:20 Troponin I < 0.02 ng/ml (0.00-0.05) 08/24/16 05:20 Microbiology 08/23/16 19:10 Blood - Peripheral Venous Blood Culture - Preliminary NO GROWTH OBTAINED AFTER 72 HOURS, INCUBATION TO CONTINUE FOR 2 DAYS. 08/23/16 19:10 Blood - Peripheral Venous Blood Culture - Preliminary NO GROWTH OBTAINED AFTER 72 HOURS, INCUBATION TO CONTINUE FOR 2 DAYS. 08/23/16 20:26 Urine - Urine Clean Catch Urine Culture - Final NO GROWTH OBTAINED 08/23/16 21:56 Urine For Antigen Detection Legionella Antigen - Final 08/23/16 21:56 Urine For Antigen Detection Streptococcus pneumoniae Antigen (M - Final Assessment: This is a 75 year old male with PMHx of HTN, hyperlipidemia, CAD s/ p stenting x2 (2014), diastolic heart failure, a.fib, COPD, respiratory failure requiring intubation (02/2016-04/2016), GI bleed, h/o DVT and PE, urinary retention with chronic lilly catheter who presented to the ED with shortness of breath and refusal to take any po medications. Plan: 1) GI: GI bleed - Stool guiac per GI positive - S/p 1u PRBC - Patient has refused GI workup including colonoscopy, EGD - Continue Protonix - Appreciate GI consult 2) ID: [id number] - Chest X-ray with RLL consolidation - Continue Ertapenem - Appreciate ID consult 3) Pulmonary: B/l pleural effusions R>L - Recent admission with left thoracentesis about two weeks ago - Now with increasing right pleural effusion - F/u IR consult for possible thoracentesis Chronic respiratory failure - Continue Prednisone 30mg po daily - Continue Bipap alternating with NRB - Continue Duonebs - Continue Mucomyst - Appreciate pulmonary consult 4) Cardiology: Chronic diastolic heart failure - Hold diuretics as patient appears euvolemic - Hold ASA for possible right thoracentesis DVT/PE - Was on Eliquis at home, discontinued - On Heparin now, given Coumadin yesterday, however will d/c as patient may go for right thoracentesis New Right pleural effusion Paroxysmal a.fib HTN - Continue Metoprolol - Continue Norvasc Hyperlipidemia - Continue Lipitor 5) : KARLOS on CKD - Continue to hold diuretics - Continue to monitor Cr - Appreciate nephrology consult 6) F/E/N: - Monitor electrolytes - Diabetic/low sodium diet 7) Prophylaxis: - Continue Heparin gtt - PT 8) Dispo: - Requires continued inpatient care - May benefit from LTAC CODE STATUS: FULL CODE Visit type - Emergency Visit Emergency Visit: Yes ED Registration Date: 08/23/16 Care time: The patient presented to the Emergency Department on the above date and was hospitalized for further evaluation of their emergent condition. - New Patient This patient is new to me today: No - Critical Care Critical Care patient: No
--- NOTE | 2016-08-27 14:22 | PN ---
GI Progress Note Subjective: GI NOte: Very feeble despite transfusion and Hb up to 8.2. No overt active bleeding noted. - Objective Vital Signs: Vital Signs Temperature 98 F 08/27/16 10:00 Pulse Rate 76 08/27/16 10:00 Respiratory Rate 22 08/27/16 10:00 Blood Pressure 117/58 08/27/16 10:00 O2 Sat by Pulse Oximetry (%) 95 08/27/16 09:00 CBC,CMP WBC 9.6 K/mm3 (4.0-10.0) 08/27/16 05:35 RBC 2.87 M/mm3 (4.00-5.60) L 08/27/16 05:35 Hgb 8.2 GM/dL (11.7-16.9) L D 08/27/16 05:35 Hct 25.0 % (35.4-49) L D 08/27/16 05:35 MCV 87.1 fl (80-96) 08/27/16 05:35 MCHC 32.9 g/dl (32.0-35.9) 08/27/16 05:35 RDW 16.0 % (11.9-15.9) H 08/27/16 05:35 Plt Count 272 K/MM3 (134-434) 08/27/16 05:35 MPV 7.4 fl (7.5-11.1) L 08/27/16 05:35 Neutrophils % Y 08/26/16 08:10 Lymphocytes % Y 08/26/16 08:10 Monocytes % 4.0 % (3.8-10.2) 08/25/16 05:35 Eosinophils % 0.0 % (0-4.5) 08/25/16 00:20 Basophils % 0.2 % (0-2.0) 08/25/16 00:20 Differential Comment Manual diff done 08/25/16 05:35 Platelet Estimate Adequate (NORMAL) 08/25/16 05:35 Platelet Comment No clumping noted 08/23/16 18:59 Retic Count 3.27 % (0.5-1.5) H D 08/26/16 08:10 Sodium 145 mmol/L (136-145) 08/27/16 05:35 Potassium 4.3 mmol/L (3.5-5.1) 08/27/16 05:35 Chloride 100 mmol/L (98-107) 08/27/16 05:35 Carbon Dioxide 38 mmol/L (21-32) H 08/27/16 05:35 Anion Gap 7 (8-16) L 08/27/16 05:35 BUN 136 mg/dL (7-18) H* 08/27/16 05:35 Creatinine 3.0 mg/dL (0.7-1.3) H 08/27/16 05:35 Creat Clearance w eGFR 20.62 (>60) 08/27/16 05:35 POC Glucometer 150 UNITS (()) 08/27/16 11:26 Random Glucose 106 mg/dL (74-106) 08/27/16 05:35 Hemoglobin A1c % 5.5 % (4.8-6.0) D 08/24/16 05:20 Lactic Acid 1.992 mmol/L (0.4-2.0) 08/23/16 21:56 Calcium 8.0 mg/dL (8.5-10.1) L 08/27/16 05:35 Phosphorus 5.8 mg/dL (2.5-4.9) H 08/26/16 08:10 Magnesium 3.6 mg/dL (1.8-2.4) H 08/26/16 08:10 Iron 52 ug/dL (38-169) 08/26/16 08:10 TIBC 194 ug/dL (250-450) L 08/26/16 08:10 Iron Saturation 27 % (15-55) 08/26/16 08:10 Ferritin 478.175 ng/ml (16.4-293.9) H 08/26/16 08:10 Total Bilirubin 0.3 mg/dL (0.2-1.0) 08/27/16 05:35 GGT 22 U/L (5-85) 08/26/16 08:10 AST 14 U/L (15-37) L D 08/27/16 05:35 ALT 9 U/L (12-78) L D 08/27/16 05:35 Alkaline Phosphatase 59 U/L (45-117) 08/27/16 05:35 Creatine Kinase 9 IU/L (39-308) L 08/24/16 05:20 Troponin I < 0.02 ng/ml (0.00-0.05) 08/24/16 05:20 C-Reactive Protein 5.5 MG/DL (0.00-0.3) H 08/26/16 08:10 B-Natriuretic Peptide 4010.08 pg/ml (5-125) H 08/23/16 18:59 Total Protein 5.1 g/dl (6.4-8.2) L 08/27/16 05:35 Albumin 2.6 g/dl (3.4-5.0) L 08/27/16 05:35 Lipase 105 U/L (73-393) 08/23/16 18:59 Vitamin B12 295 pg/ml (180-914) D 08/26/16 08:10 Serum Folate 4 ng/ml (3.1-17.5) 08/26/16 08:10 Constitutional: Other (Tachypneic on ventimask) Gastrointestinal Inspection: Yes: Distention ...Auscultate: Yes: Hypoactive Bowel Sounds ...Palpate: Yes: Soft, Other (nontender) Labs: CBC, BMP 08/27/16 05:35 08/27/16 05:35 INR, PTT INR 1.22 (0.82-1.09) H 08/27/16 06:00 Assessment/Plan Anemia due to GI bleeding of undetermined and possibly malignant etiology but too respiratorily unstable to consider elective endoscopies. He did refuse them earlier. Will likely need to transfuse periodically. Continue PPI empirically.
[2016-08-27] MEDS: ATORVASTATIN CA 20 MG TABLET (FP) PO SCH (22:07)
[2016-08-28] MEDS: INSULIN SLIDING SCALE (NOVOLOG) 1 VIAL SQ SCH ×4 (06:37→22:11)
[2016-08-28] MEDS: ALBUTEROL SO4 0.083% IH SOL 2.5 MG/3 ML VIAL.NEB. NEB SCH ×3 (06:50→17:42)
[2016-08-28] MEDS: ACETYLCYSTEINE 20% 200MG/ML 4 ML VIAL *FOR ORAL / INH USE ONLY NEB SCH ×3 (06:50→17:42)
[2016-08-28 07:44] LABS: MCH 29.1 pg (25.7-33.7); MCHC 33.1 g/dl (32.0-35.9); MEAN CELL VOLUME 87.8 fl (80-96); MEAN PLT VOLUME 7.5 fl (7.5-11.1); PLATELET COUNT 236 K/MM3 (134-434); RDW 16.6 % (11.9-15.9); WHITE BLOOD COUNT 9.7 K/mm3 (4.0-10.0)
[2016-08-28] MEDS: TAMSULOSIN HCL 0.4 MG CAP.ER.24H (FP) PO SCH (08:20)
[2016-08-28 08:25] LABS: ALBUMIN 2.5 g/dl (3.4-5.0); BILIRUBIN,TOTAL 0.3 mg/dL (0.2-1.0); COCKROFT - GAULT 36.15; CREATININE 2.5 mg/dL (0.7-1.3)
[2016-08-28] MEDS ORDERED: SODIUM CHLORIDE 500 ML IV STA (10:02)
[2016-08-28] MEDS ORDERED: PT OWN MED DRAWER 7, Y5N ONE (10:29)
[2016-08-28] MEDS: ERTAPENEM SODIUM 1 GM in SODIUM CHLORIDE 50 ML IVPB SCH (10:33)
[2016-08-28] MEDS: DULoxetine HCL 30 MG CAPSULE.DR (FP) PO SCH (10:34)
[2016-08-28] MEDS: amLODIPine BESYLATE 10 MG TABLET (FP) PO SCH (10:34)
[2016-08-28] MEDS: PANTOPRAZOLE 40 MG TABLET (FP) PO SCH ×2 (10:34→21:28)
[2016-08-28] MEDS: METOPROLOL TARTRATE 25 MG TABLET (FP) PO SCH ×2 (10:34→21:28)
[2016-08-28] MEDS: predniSONE 10 MG TABLET (UD) PO SCH (10:34)
[2016-08-28] MEDS: DOCUSATE SODIUM 100 MG CAPSULE (FP) PO SCH ×2 (10:34→21:29)
[2016-08-28] MEDS: FERROUS SO4 325 MG TABLET (FP) PO SCH ×2 (10:35→21:29)
[2016-08-28] MEDS: POLYETHYLENE GLYCOL 3350 119 GM BTL PO SCH (10:35)
[2016-08-28] MEDS: HEPARIN - 25,000 UNIT in SODIUM CHLORIDE 495 ML IV SCH ×2 (11:00→14:50)
--- NOTE | 2016-08-28 11:05 | PN ---
Progress Note, Physician History of Present Illness: seen and examined today. awake, alert, oriented. c/o being very thirsty, repeatedly asking for water. no overnight events. - Current Medication List Current Medications: Active Medications Acetaminophen (Tylenol -) 650 mg PO Q6H PRN PRN Reason: PAIN Acetylcysteine (Mucomyst 20 Oral / Inh Use Only*) 600 mg NEB QIDR [facility] Last Admin: 08/28/16 06:50 Dose: 600 mg Albuterol Sulfate (Ventolin 0.083% Nebulizer Soln -) 1 amp NEB QIDR [facility] Last Admin: 08/28/16 06:50 Dose: 1 amp Amlodipine Besylate (Norvasc -) 10 mg PO DAILY [facility] Last Admin: 08/28/16 10:34 Dose: 10 mg Atorvastatin Calcium (Lipitor -) 20 mg PO HS [facility] Last Admin: 08/27/16 22:07 Dose: 20 mg Bupropion HCl (Wellbutrin Xl -) 150 mg PO DAILY [facility] Last Admin: 08/28/16 10:36 Dose: 150 mg Docusate Sodium (Colace -) 100 mg PO BID [facility] Last Admin: 08/28/16 10:34 Dose: 100 mg Duloxetine HCl (Cymbalta -) 60 mg PO DAILY [facility] Last Admin: 08/28/16 10:34 Dose: 60 mg Epoetin Keith (Procrit -) 10,000 unit IVPUSH MoWeFr@10 [facility] Last Admin: 08/25/16 16:55 Dose: 10,000 unit Ferrous Sulfate (Feosol -) 325 mg PO BID [facility] Last Admin: 08/28/16 10:35 Dose: 325 mg Guaifenesin (Mucinex -) 600 mg PO BID PRN Heparin Sodium (Porcine) (Heparin -) 1,000 unit IVPUSH PRN PRN PRN Reason: Heparin Last Admin: 08/27/16 00:00 Dose: 1,000 unit Heparin Sodium (Porcine) (Heparin -) 5,000 unit IVPUSH PRN PRN PRN Reason: Heparin Ertapenem 1 gm/ Sodium (Chloride) 50 mls @ 50 mls/hr IVPB DAILY [facility] PRN Reason: Protocol Last Admin: 08/28/16 10:33 Dose: 50 mls/hr Heparin Sodium (Porcine) 25, (000 unit/ Sodium Chloride) 500 mls @ 20 mls/hr IV TITR [facility]; 1,000 UNIT/HR PRN Reason: Protocol Last Admin: 08/27/16 09:40 Dose: 22 mls/hr Sodium Chloride (Normal Saline -) 500 mls @ 500 mls/hr IV ASDIR STA Stop: 08/28/16 11:01 Last Admin: 08/28/16 10:36 Dose: 500 mls/hr Insulin Aspart (Novolog Vial Sliding Scale -) 1 vial SQ ACHS [facility] PRN Reason: Protocol Last Admin: 08/28/16 06:37 Dose: Not Given Metoprolol Tartrate (Lopressor -) 25 mg PO BID [facility] Last Admin: 08/28/16 10:34 Dose: 25 mg Nystatin (Nystop Powder -) 1 applic TP DAILY [facility] Last Admin: 08/27/16 09:39 Dose: 1 applic Pantoprazole Sodium (Protonix -) 40 mg PO BID [facility] Last Admin: 08/28/16 10:34 Dose: 40 mg Polyethylene Glycol (Miralax (For Daily Use) -) 17 gm PO DAILY [facility] Last Admin: 08/28/16 10:35 Dose: 17 gm Prednisone (Deltasone -) 30 mg PO DAILY [facility] Last Admin: 08/28/16 10:34 Dose: 30 mg Senna (Senna -) 2 tab PO DAILY PRN PRN Reason: CONSTIPATION Sodium Chloride ([place] Nasal [place] -) 2 spray NS Q12H PRN PRN Reason: NASAL CONGESTION Tamsulosin HCl (Flomax -) 0.4 mg PO DAILY@0830 [facility] Last Admin: 08/28/16 08:20 Dose: 0.4 mg - Objective Vital Signs: Vital Signs Temperature 98.4 F 08/28/16 10:00 Pulse Rate 64 08/28/16 10:00 Respiratory Rate 22 08/28/16 10:00 Blood Pressure 128/54 08/28/16 10:00 O2 Sat by Pulse Oximetry (%) 94 L 08/27/16 21:00 Constitutional: Yes: No Distress, Calm, Obese Eyes: Yes: Conjunctiva Clear, EOM Intact, PERRL HENT: Yes: Atraumatic, Normocephalic Neck: Yes: Supple, Trachea Midline Cardiovascular: Yes: Regular Rate and Rhythm, S1, S2. No: Bradycardia, Tachycardia, Pulse Irregular, Bruit, JVD, Gallop, Murmur, Rub, S3, S4, Varicosities Respiratory: Yes: Regular, Diminished, On BiPap. No: Rales, Rhonchi, Wheezes Gastrointestinal: Yes: Normal Bowel Sounds, Soft. No: Distention, Tenderness Musculoskeletal: Yes: Muscle Weakness Edema: No Peripheral Pulses WNL: Yes Peripheral Pulses: Left Doralis Pedis: 2+, Right Dorsalis Pedis: 2+ Integumentary: Yes: Venous Stasis Changes Neurological: Yes: Alert, Oriented Psychiatric: Yes: Alert, Oriented Labs: CBC, BMP 08/28/16 05:35 08/28/16 05:35 INR, PTT INR 1.22 (0.82-1.09) H 08/27/16 06:00 - ....Imaging Chest X-ray: Report Reviewed, Image Reviewed EKG: Report Reviewed, Image Reviewed Other: Report Reviewed, Image Reviewed (tele-nsr, pvcs, apcs) Assessment/Plan IMP: Acute on chronic exacerbation COPD, Right lower lobe PNA Acute on chronic renal failure, suspected ATN from periods of relative hypotension Anemia CAD s/p PCI History of DVT REC: SOB/Respiratory failure-AE COPD, RLL PNA, pleural effusions, chronic diastolic CHF -Steroids as per Pulm -Receiving Abx -hold diuresis given intravascular depletion -possible thoracentesis planned, holding ASA (last dose 08/26) and holding coumadin for now with plan to resume post procedure TARYN on CKD -intravascular depletion secondary to diuretics, component of elevated bun secondary to steroids -creatinine trending down -will give 500cc IVF bolus as pt c/o being very thirsty, likely due to intravascular depletion and supp O2 -monitor bun/creat, electrolytes -hold diuretics -nephrology following -avoid PIPER-I/ARB's Anemia: likely GI source, with h/o DVT/PE and CAD with stents -s/p 1 unit PRBCs -H/H trending down again -transfuse as needed to keep Hgb close to 8 -GI evaluated, strong guaiac positive black/brown stool, pt declined invasive diagnostics and pt high risk for invasive procedures given tenuous condition overall -plan for now is to resume ASA and coumadin during admission -will need to consider dc of full AC altogether given recurrent anemia CAD s/p PCI:stable -plan to hold then resume ASA as above
[2016-08-28] MEDS ORDERED: FUROSEMIDE 40 MG/4 ML INJECTABLE VIAL IVPUSH ONE ×2 (12:45→21:51)
--- NOTE | 2016-08-28 12:50 | PN ---
Progress Note (short form) - Note Progress Note: Subjective: The patient was seen and examined at the bedside on bipap with o2 saturation in 70s. Respiratory therapy, , and RN at bedside. Patient had received 500ml bolus prior to respiratory failure. His was found feeding him while on bipap prior to hypoxia Lasix given with improvement in O2 saturation to 96% Transfer to ICU To discuss with Dr. Szymanski possibility for aspiration and continuation of antibiotics Current Medications Generic Name Dose Route Start Last Admin Trade Name Freq PRN Reason Stop Dose Admin Acetaminophen 650 mg 08/24/16 13:17 Tylenol - PO Q6H PRN PAIN Acetylcysteine 600 mg 08/24/16 18:00 08/28/16 11:35 Mucomyst 20 Oral / Inh Use Only* NEB 600 mg QIDR [facility] Administration Albuterol Sulfate 1 amp 08/24/16 18:00 08/28/16 11:35 Ventolin 0.083% Nebulizer Soln - NEB 1 amp QIDR [facility] Administration Amlodipine Besylate 10 mg 08/25/16 10:00 08/28/16 10:34 Norvasc - PO 10 mg DAILY [facility] Administration Atorvastatin Calcium 20 mg 08/24/16 22:00 08/27/16 22:07 Lipitor - PO 20 mg HS [facility] Administration Bupropion HCl 150 mg 08/25/16 10:00 08/28/16 10:36 Wellbutrin Xl - PO 150 mg DAILY [facility] Administration Docusate Sodium 100 mg 08/24/16 22:00 08/28/16 10:34 Colace - PO 100 mg BID [facility] Administration Duloxetine HCl 60 mg 08/25/16 10:00 08/28/16 10:34 Cymbalta - PO 60 mg DAILY [facility] Administration Epoetin Keith 10,000 unit 08/25/16 10:00 08/25/16 16:55 Procrit - IVPUSH 10,000 unit MoWeFr@10 [facility] Administration Ferrous Sulfate 325 mg 08/24/16 22:00 08/28/16 10:35 Feosol - PO 325 mg BID [facility] Administration Furosemide 40 mg 08/28/16 12:45 Lasix Injection - IVPUSH 08/28/16 12:46 ONCE ONE Guaifenesin 600 mg 08/24/16 13:17 Mucinex - PO BID PRN Heparin Sodium (Porcine) 1,000 unit 08/26/16 10:33 08/27/16 00:00 Heparin - IVPUSH 1,000 unit PRN PRN Administration Heparin Heparin Sodium (Porcine) 5,000 unit 08/26/16 11:28 Heparin - IVPUSH PRN PRN Heparin Heparin Sodium (Porcine) 25, 500 mls @ 20 mls/hr 08/26/16 11:45 08/27/16 09:40 000 unit/ Sodium Chloride IV 22 mls/hr TITR [facility] Administration Protocol 1,000 UNIT/HR Insulin Aspart 1 vial 08/24/16 16:30 08/28/16 06:37 Novolog Vial Sliding Scale - SQ Not Given ACHS [facility] Protocol Metoprolol Tartrate 25 mg 08/24/16 22:00 08/28/16 10:34 Lopressor - PO 25 mg BID [facility] Administration Nystatin 1 applic 08/25/16 10:00 08/27/16 09:39 Nystop Powder - TP 1 applic DAILY [facility] Administration Pantoprazole Sodium 40 mg 08/25/16 22:00 08/28/16 10:34 Protonix - PO 40 mg BID [facility] Administration Polyethylene Glycol 17 gm 08/25/16 10:00 08/28/16 10:35 Miralax (For Daily Use) - PO 17 gm DAILY [facility] Administration Prednisone 30 mg 08/25/16 10:00 08/28/16 10:34 Deltasone - PO 30 mg DAILY [facility] Administration Senna 2 tab 08/24/16 13:17 Senna - PO DAILY PRN CONSTIPATION Sodium Chloride 2 spray 08/24/16 13:17 [place] Nasal [place] - NS Q12H PRN NASAL CONGESTION Tamsulosin HCl 0.4 mg 08/25/16 08:30 08/28/16 08:20 Flomax - PO 0.4 mg DAILY@0830 [facility] Administration Objective: Vital Signs Period Temp Pulse Resp BP Sys/[place] Pulse Ox Last 24 Hr 97.7 F-98.4 F 64-78 20-22 102-148/51-83 94-97 Physical Exam: General: NAD, A&Ox3 Lungs: Decreased breath sounds B/l, L>R. Mild rales on right Heart: RRR, S1S2 Abd: Soft, non-tender, non-distended. Normoactive bowel sounds Ext: B/l lower extremity edema. Chronic venous stasis changes CBCD WBC 9.7 K/mm3 (4.0-10.0) 08/28/16 05:35 RBC 2.68 M/mm3 (4.00-5.60) L 08/28/16 05:35 Hgb 7.8 GM/dL (11.7-16.9) L 08/28/16 05:35 Hct 23.5 % (35.4-49) L 08/28/16 05:35 MCV 87.8 fl (80-96) 08/28/16 05:35 MCHC 33.1 g/dl (32.0-35.9) 08/28/16 05:35 RDW 16.6 % (11.9-15.9) H 08/28/16 05:35 Plt Count 236 K/MM3 (134-434) 08/28/16 05:35 MPV 7.5 fl (7.5-11.1) 08/28/16 05:35 CMP Sodium 150 mmol/L (136-145) H 08/28/16 05:35 Potassium 4.1 mmol/L (3.5-5.1) 08/28/16 05:35 Chloride 104 mmol/L (98-107) 08/28/16 05:35 Carbon Dioxide 39 mmol/L (21-32) H 08/28/16 05:35 Anion Gap 7 (8-16) L 08/28/16 05:35 BUN 120 mg/dL (7-18) H* 08/28/16 05:35 Creatinine 2.5 mg/dL (0.7-1.3) H 08/28/16 05:35 Creat Clearance w eGFR 25.44 (>60) 08/28/16 05:35 Random Glucose 94 mg/dL (74-106) 08/28/16 05:35 Calcium 8.0 mg/dL (8.5-10.1) L 08/28/16 05:35 Total Bilirubin 0.3 mg/dL (0.2-1.0) 08/28/16 05:35 AST 14 U/L (15-37) L 08/28/16 05:35 ALT 9 U/L (12-78) L 08/28/16 05:35 Alkaline Phosphatase 61 U/L (45-117) 08/28/16 05:35 Total Protein 5.0 g/dl (6.4-8.2) L 08/28/16 05:35 Albumin 2.5 g/dl (3.4-5.0) L 08/28/16 05:35 CARDIAC ENZYMES Creatine Kinase 9 IU/L (39-308) L 08/24/16 05:20 Troponin I < 0.02 ng/ml (0.00-0.05) 08/24/16 05:20 Microbiology 08/23/16 19:10 Blood - Peripheral Venous Blood Culture - Preliminary NO GROWTH OBTAINED AFTER 96 HOURS, INCUBATION TO CONTINUE FOR 1 DAYS. 08/23/16 19:10 Blood - Peripheral Venous Blood Culture - Preliminary NO GROWTH OBTAINED AFTER 96 HOURS, INCUBATION TO CONTINUE FOR 1 DAYS. 08/23/16 20:26 Urine - Urine Clean Catch Urine Culture - Final NO GROWTH OBTAINED 08/23/16 21:56 Urine For Antigen Detection Legionella Antigen - Final 08/23/16 21:56 Urine For Antigen Detection Streptococcus pneumoniae Antigen (M - Final Assessment: This is a 75 year old male with PMHx of HTN, hyperlipidemia, CAD s/ p stenting x2 (2014), diastolic heart failure, a.fib, COPD, respiratory failure requiring intubation (02/2016-04/2016), GI bleed, h/o DVT and PE, urinary retention with chronic lilly catheter who presented to the ED with shortness of breath and refusal to take any po medications. Plan: 3) Pulmonary: Acute hypoxic respiratory failure 2/2 possible aspiration - Patient desated on Bipap into the 70s today - Upon evaluation found the patient's feeding him lunch while on Bipap, removing and replacing mask during bites of food - Patient also had rales on right lung on exam - Lasix given with improvement in O2 saturation - Chest X-ray with b/l pleural effusions R>L - Left message for Dr. Szymanski to discuss continuation of antibiotics given high suspicion for aspiration - Discussed with Dr. Conway, transfer to ICU for closer monitoring B/l pleural effusions R>L - Recent admission with left thoracentesis about two weeks ago - Now with increasing right pleural effusion - F/u IR consult for possible thoracentesis Chronic respiratory failure - Continue Prednisone 30mg po daily - Continue Bipap alternating with NRB - Continue Duonebs - Continue Mucomyst - Appreciate pulmonary consult 2) GI: GI bleed - Stool guiac per GI positive - S/p 1u PRBC on 08/26 - Monitor H/H closely, will likely need further transfusions - Patient has refused GI workup including colonoscopy, EGD - Continue Protonix - Appreciate GI consult 2) ID: HCAP - Chest X-ray with RLL consolidation - Ertapenem (coverage for gram negative, gram positive, and anaerobes) last dose given 08/28, d/c per ID - Appreciate ID consult 4) Cardiology: Chronic diastolic heart failure - Lasix given for acute hypoxic respiratory failure - Hold ASA for possible right thoracentesis DVT/PE - Was on Eliquis at home, discontinued - On Heparin now, given Coumadin yesterday, however will d/c as patient may go for right thoracentesis New Right pleural effusion Paroxysmal a.fib HTN - Continue Metoprolol - Continue Norvasc Hyperlipidemia - Continue Lipitor 5) : KARLOS on CKD - Continue to monitor Cr - Appreciate nephrology consult 6) F/E/N: - Monitor electrolytes - Diabetic/low sodium diet 7) Prophylaxis: - Continue Heparin gtt - PT 8) Dispo: - Requires continued inpatient care - May benefit from LTAC CODE STATUS: FULL CODE Visit type - Emergency Visit Emergency Visit: Yes ED Registration Date: 08/23/16 Care time: The patient presented to the Emergency Department on the above date and was hospitalized for further evaluation of their emergent condition. - New Patient This patient is new to me today: No - Critical Care Critical Care patient: No
[2016-08-28] MEDS ORDERED: ERTAPENEM SODIUM 1 GM in SODIUM CHLORIDE 50 ML IVPB ONE (12:57)
[2016-08-28] MEDS: NYSTATIN POWDER 100,000 UNITS/GM - 15 GM TOPICAL POWDER TP SCH (13:01)
[2016-08-28] MEDS: EPOETIN ALFA 10,000 UNIT/1 ML VIAL IVPUSH SCH (13:04)
--- NOTE | 2016-08-28 13:13 | PN ---
Progress Note, Physician Chief Complaint: The patient lying in bed. Arousable, Bipap in place. Clifford catheter in place. Maintains good urine output. Family by his side. - Current Medication List Current Medications: Active Medications Acetaminophen (Tylenol -) 650 mg PO Q6H PRN PRN Reason: PAIN Acetylcysteine (Mucomyst 20 Oral / Inh Use Only*) 600 mg NEB QIDR [facility] Last Admin: 08/28/16 11:35 Dose: 600 mg Albuterol Sulfate (Ventolin 0.083% Nebulizer Soln -) 1 amp NEB QIDR [facility] Last Admin: 08/28/16 11:35 Dose: 1 amp Atorvastatin Calcium (Lipitor -) 20 mg PO HS [facility] Last Admin: 08/27/16 22:07 Dose: 20 mg Bupropion HCl (Wellbutrin Xl -) 150 mg PO DAILY [facility] Last Admin: 08/28/16 10:36 Dose: 150 mg Docusate Sodium (Colace -) 100 mg PO BID [facility] Last Admin: 08/28/16 10:34 Dose: 100 mg Duloxetine HCl (Cymbalta -) 60 mg PO DAILY [facility] Last Admin: 08/28/16 10:34 Dose: 60 mg Epoetin Keith (Procrit -) 10,000 unit IVPUSH MoWeFr@10 [facility] Last Admin: 08/28/16 13:04 Dose: 10,000 unit Ferrous Sulfate (Feosol -) 325 mg PO BID [facility] Last Admin: 08/28/16 10:35 Dose: 325 mg Guaifenesin (Mucinex -) 600 mg PO BID PRN Heparin Sodium (Porcine) (Heparin -) 1,000 unit IVPUSH PRN PRN PRN Reason: Heparin Last Admin: 08/27/16 00:00 Dose: 1,000 unit Heparin Sodium (Porcine) (Heparin -) 5,000 unit IVPUSH PRN PRN PRN Reason: Heparin Heparin Sodium (Porcine) 25, (000 unit/ Sodium Chloride) 500 mls @ 20 mls/hr IV TITR [facility]; 1,000 UNIT/HR PRN Reason: Protocol Last Admin: 08/28/16 11:00 Dose: 20 mls/hr Insulin Aspart (Novolog Vial Sliding Scale -) 1 vial SQ ACHS [facility] PRN Reason: Protocol Last Admin: 08/28/16 13:02 Dose: Not Given Metoprolol Tartrate (Lopressor -) 25 mg PO BID [facility] Last Admin: 08/28/16 10:34 Dose: 25 mg Nystatin (Nystop Powder -) 1 applic TP DAILY [facility] Last Admin: 08/28/16 13:01 Dose: 1 applic Pantoprazole Sodium (Protonix -) 40 mg PO BID [facility] Last Admin: 08/28/16 10:34 Dose: 40 mg Polyethylene Glycol (Miralax (For Daily Use) -) 17 gm PO DAILY [facility] Last Admin: 08/28/16 10:35 Dose: 17 gm Prednisone (Deltasone -) 30 mg PO DAILY [facility] Last Admin: 08/28/16 10:34 Dose: 30 mg Senna (Senna -) 2 tab PO DAILY PRN PRN Reason: CONSTIPATION Sodium Chloride ([place] Nasal [place] -) 2 spray NS Q12H PRN PRN Reason: NASAL CONGESTION Tamsulosin HCl (Flomax -) 0.4 mg PO DAILY@0830 [facility] Last Admin: 08/28/16 08:20 Dose: 0.4 mg - Objective Vital Signs: Vital Signs Temperature 98.4 F 08/28/16 10:00 Pulse Rate 69 08/28/16 11:30 Respiratory Rate 22 08/28/16 10:00 Blood Pressure 128/54 08/28/16 10:00 O2 Sat by Pulse Oximetry (%) 97 08/28/16 11:30 Constitutional: Yes: Moderate Distress Neck: Yes: Decreased ROM Respiratory: Yes: Diminished, On BiPap, Poor Air Entry, Rhonchi Gastrointestinal: Yes: Abdomen, Obese Edema: Yes Edema: LLE: 2+, RLE: 2+ Neurological: Yes: Alert Labs: CBC, BMP 08/28/16 05:35 08/28/16 05:35 INR, PTT INR 1.22 (0.82-1.09) H 08/27/16 06:00 Assessment/Plan 75 y/o male with COPD, Pleural effusion, Hypoalbuminemia. The patient seems to be in acute respitarory distress. O2 desturation noted. Was on dialysis for KARLOS. Currently off the same. Significant azotemia, and most of it is Steroid dependent. But some of it due to renal hypoperfusion. BP tends to run low normal. Will d/c the Amlodipine. The Electrolyte profile in acceptable range. No overt indication for restarting dialysis at this juncture. Will monitor the renal functions with you. Sgrre with transfer to ICU for closer monitoring. Shi Hernandez MD
[2016-08-28 13:16] LABS: ANISOCYTOSIS 1+; METAMYELOCYTE 1 % (0-2); PLATELET ESTIMATE ADEQUATE (NORMAL)
--- NOTE | 2016-08-28 13:24 | PN ---
Progress Note (short form) - Note Progress Note: Subjective: The patient was seen and examined at the bedside on bipap with o2 saturation in 70s. Respiratory therapy, , and RN at bedside. Patient had received 500ml bolus prior to respiratory failure. His was found feeding him while on bipap prior to hypoxia Lasix given with improvement in O2 saturation to 96% Refused ABG Transfer to ICU To discuss with Dr. Szymanski possibility for aspiration and continuation of antibiotics Current Medications Generic Name Dose Route Start Last Admin Trade Name Freq PRN Reason Stop Dose Admin Acetaminophen 650 mg 08/24/16 13:17 Tylenol - PO Q6H PRN PAIN Acetylcysteine 600 mg 08/24/16 18:00 08/28/16 11:35 Mucomyst 20 Oral / Inh Use Only* NEB 600 mg QIDR LESLEE Administration Albuterol Sulfate 1 amp 08/24/16 18:00 08/28/16 11:35 Ventolin 0.083% Nebulizer Soln - NEB 1 amp QIDR LESLEE Administration Amlodipine Besylate 10 mg 08/25/16 10:00 08/28/16 10:34 Norvasc - PO 10 mg DAILY LESLEE Administration Atorvastatin Calcium 20 mg 08/24/16 22:00 08/27/16 22:07 Lipitor - PO 20 mg HS LESLEE Administration Bupropion HCl 150 mg 08/25/16 10:00 08/28/16 10:36 Wellbutrin Xl - PO 150 mg DAILY LESLEE Administration Docusate Sodium 100 mg 08/24/16 22:00 08/28/16 10:34 Colace - PO 100 mg BID LESLEE Administration Duloxetine HCl 60 mg 08/25/16 10:00 08/28/16 10:34 Cymbalta - PO 60 mg DAILY LESLEE Administration Epoetin Keith 10,000 unit 08/25/16 10:00 08/25/16 16:55 Procrit - IVPUSH 10,000 unit MoWeFr@10 LESLEE Administration Ferrous Sulfate 325 mg 08/24/16 22:00 08/28/16 10:35 Feosol - PO 325 mg BID LESLEE Administration Furosemide 40 mg 08/28/16 12:45 Lasix Injection - IVPUSH 08/28/16 12:46 ONCE ONE Guaifenesin 600 mg 08/24/16 13:17 Mucinex - PO BID PRN Heparin Sodium (Porcine) 1,000 unit 08/26/16 10:33 08/27/16 00:00 Heparin - IVPUSH 1,000 unit PRN PRN Administration Heparin Heparin Sodium (Porcine) 5,000 unit 08/26/16 11:28 Heparin - IVPUSH PRN PRN Heparin Heparin Sodium (Porcine) 25, 500 mls @ 20 mls/hr 08/26/16 11:45 08/27/16 09:40 000 unit/ Sodium Chloride IV 22 mls/hr TITR LESLEE Administration Protocol 1,000 UNIT/HR Insulin Aspart 1 vial 08/24/16 16:30 08/28/16 06:37 Novolog Vial Sliding Scale - SQ Not Given ACHS [facility] Protocol Metoprolol Tartrate 25 mg 08/24/16 22:00 08/28/16 10:34 Lopressor - PO 25 mg BID LESLEE Administration Nystatin 1 applic 08/25/16 10:00 08/27/16 09:39 Nystop Powder - TP 1 applic DAILY LESLEE Administration Pantoprazole Sodium 40 mg 08/25/16 22:00 08/28/16 10:34 Protonix - PO 40 mg BID LESLEE Administration Polyethylene Glycol 17 gm 08/25/16 10:00 08/28/16 10:35 Miralax (For Daily Use) - PO 17 gm DAILY LESLEE Administration Prednisone 30 mg 08/25/16 10:00 08/28/16 10:34 Deltasone - PO 30 mg DAILY LESLEE Administration Senna 2 tab 08/24/16 13:17 Senna - PO DAILY PRN CONSTIPATION Sodium Chloride 2 spray 08/24/16 13:17 [place] Nasal [place] - NS Q12H PRN NASAL CONGESTION Tamsulosin HCl 0.4 mg 08/25/16 08:30 08/28/16 08:20 Flomax - PO 0.4 mg DAILY@0830 LESLEE Administration Objective: Vital Signs Period Temp Pulse Resp BP Sys/[place] Pulse Ox Last 24 Hr 97.7 F-98.4 F 64-78 20-22 102-148/51-83 94-97 Physical Exam: General: NAD, A&Ox3 Lungs: Decreased breath sounds B/l, L>R. Mild rales on right Heart: RRR, S1S2 Abd: Soft, non-tender, non-distended. Normoactive bowel sounds Ext: B/l lower extremity edema. Chronic venous stasis changes CBCD WBC 9.7 K/mm3 (4.0-10.0) 08/28/16 05:35 RBC 2.68 M/mm3 (4.00-5.60) L 08/28/16 05:35 Hgb 7.8 GM/dL (11.7-16.9) L 08/28/16 05:35 Hct 23.5 % (35.4-49) L 08/28/16 05:35 MCV 87.8 fl (80-96) 08/28/16 05:35 MCHC 33.1 g/dl (32.0-35.9) 08/28/16 05:35 RDW 16.6 % (11.9-15.9) H 08/28/16 05:35 Plt Count 236 K/MM3 (134-434) 08/28/16 05:35 MPV 7.5 fl (7.5-11.1) 08/28/16 05:35 CMP Sodium 150 mmol/L (136-145) H 08/28/16 05:35 Potassium 4.1 mmol/L (3.5-5.1) 08/28/16 05:35 Chloride 104 mmol/L (98-107) 08/28/16 05:35 Carbon Dioxide 39 mmol/L (21-32) H 08/28/16 05:35 Anion Gap 7 (8-16) L 08/28/16 05:35 BUN 120 mg/dL (7-18) H* 08/28/16 05:35 Creatinine 2.5 mg/dL (0.7-1.3) H 08/28/16 05:35 Creat Clearance w eGFR 25.44 (>60) 08/28/16 05:35 Random Glucose 94 mg/dL (74-106) 08/28/16 05:35 Calcium 8.0 mg/dL (8.5-10.1) L 08/28/16 05:35 Total Bilirubin 0.3 mg/dL (0.2-1.0) 08/28/16 05:35 AST 14 U/L (15-37) L 08/28/16 05:35 ALT 9 U/L (12-78) L 08/28/16 05:35 Alkaline Phosphatase 61 U/L (45-117) 08/28/16 05:35 Total Protein 5.0 g/dl (6.4-8.2) L 08/28/16 05:35 Albumin 2.5 g/dl (3.4-5.0) L 08/28/16 05:35 CARDIAC ENZYMES Creatine Kinase 9 IU/L (39-308) L 08/24/16 05:20 Troponin I < 0.02 ng/ml (0.00-0.05) 08/24/16 05:20 Microbiology 08/23/16 19:10 Blood - Peripheral Venous Blood Culture - Preliminary NO GROWTH OBTAINED AFTER 96 HOURS, INCUBATION TO CONTINUE FOR 1 DAYS. 08/23/16 19:10 Blood - Peripheral Venous Blood Culture - Preliminary NO GROWTH OBTAINED AFTER 96 HOURS, INCUBATION TO CONTINUE FOR 1 DAYS. 08/23/16 20:26 Urine - Urine Clean Catch Urine Culture - Final NO GROWTH OBTAINED 08/23/16 21:56 Urine For Antigen Detection Legionella Antigen - Final 08/23/16 21:56 Urine For Antigen Detection Streptococcus pneumoniae Antigen (M - Final Assessment: This is a 75 year old male with PMHx of HTN, hyperlipidemia, CAD s/ p stenting x2 (2014), diastolic heart failure, a.fib, COPD, respiratory failure requiring intubation (02/2016-04/2016), GI bleed, h/o DVT and PE, urinary retention with chronic lilly catheter who presented to the ED with shortness of breath and refusal to take any po medications. Plan: 3) Pulmonary: Acute hypoxic respiratory failure 2/2 possible aspiration - Patient desated on Bipap into the 70s today - Upon evaluation found the patient's feeding him lunch while on Bipap, removing and replacing mask during bites of food - Patient also had rales on right lung on exam - Lasix given with improvement in O2 saturation - Chest X-ray with b/l pleural effusions R>L - Left message for Dr. Szymanski to discuss continuation of antibiotics given high suspicion for aspiration - Discussed with Dr. Conway, transfer to ICU for closer monitoring B/l pleural effusions R>L - Recent admission with left thoracentesis about two weeks ago - Now with increasing right pleural effusion - F/u IR consult for possible thoracentesis Chronic respiratory failure - Continue Prednisone 30mg po daily - Continue Bipap alternating with NRB - Continue Duonebs - Continue Mucomyst - Appreciate pulmonary consult 2) GI: GI bleed - Stool guiac per GI positive - S/p 1u PRBC on 08/26 - Monitor H/H closely, will likely need further transfusions - Patient has refused GI workup including colonoscopy, EGD - Continue Protonix - Appreciate GI consult 2) ID: HCAP possibly 2/2 gram negative bacteria - Chest X-ray with RLL consolidation - Ertapenem (coverage for gram negative, gram positive, and anaerobes) last dose given 08/28, d/c per ID - Appreciate ID consult 4) Cardiology: Chronic diastolic heart failure - Lasix given for acute hypoxic respiratory failure - Hold ASA for possible right thoracentesis DVT/PE - Was on Eliquis at home, discontinued - On Heparin gtt now New Right pleural effusion Paroxysmal a.fib HTN - Continue Metoprolol - Continue Norvasc Hyperlipidemia - Continue Lipitor 5) : KARLOS on CKD - Continue to monitor Cr - Appreciate nephrology consult 6) F/E/N: - Monitor electrolytes - Diabetic/low sodium diet 7) Prophylaxis: - Continue Heparin gtt - PT 8) Dispo: - Requires continued inpatient care - May benefit from LTAC CODE STATUS: FULL CODE Visit type - Emergency Visit Emergency Visit: Yes ED Registration Date: 08/23/16 Care time: The patient presented to the Emergency Department on the above date and was hospitalized for further evaluation of their emergent condition. - New Patient This patient is new to me today: No - Critical Care Critical Care patient: Yes Total Critical Care Time (in minutes): 45 Critical Care Statement: The care of this patient involved high complexity decision making to prevent further life threatening deterioration of the patient 's condition and/or to evalute & treat vital organ system(s) failure or risk of failure.
--- NOTE | 2016-08-28 14:17 | PN ---
Physical Exam: SUBJECTIVE: Patient seen and examined at bedside in ICU this afternoon. Saturating >94% on bipap. Afebrile at presentation to ICU with stable vitals and in aubrey cute distress. Verbal and respodns to questions appropriately. States his breathing is much better now than earlier in the day. OBJECTIVE: Vital Signs Period Temp Pulse Resp BP Sys/[place] Pulse Ox Last 24 Hr 97.8 F-98.4 F 62-73 20-22 102-148/51-83 92-97 GENERAL: Awake, alert, and fully oriented, in no acute distress. HEENT: Atraumatic, EOMI, PERRLA, No lymphadenopathy noted, dry membranes LUNGS: Breath sounds diminished on right middle & lower lung; scattered ronchi & bibasilar crackles noted. No wheezes or accessory muscle use noted. HEART: Regular rate and rhythm, normal S1 and S2 with systolic murmur, rub or gallop. ABDOMEN: Soft, obese, nontender, not distended, normoactive bowel sounds, no guarding, no rebound, no masses. No hepatomegaly or splenomegaly. EXTREMITIES: 2+ pulses, warm, well-perfused. No calf tenderness. No peripheral edema. NEUROLOGICAL: Cranial nerves II-XII intact. Normal speech. Gait deferred. PSYCHIATRIC: Cooperative. Good eye contact. Anxious at times during interview. SKIN: Bilateral lower ext with skin discoloration with dark yellow patches and venous stasis. No signs of fluid overload. Laboratory Results - last 24 hr 08/27/16 08/28/16 08/28/16 16:28 05:33 05:35 WBC RBC Hgb Hct MCV MCHC RDW Plt Count MPV Neutrophils % Lymphocytes % Monocytes % Metamyelocytes Nucleated RBCs Differential Comment Platelet Estimate Basophilic Stippling Anisocytosis PTT (Actin FS) 92.7 H D Sodium Potassium Chloride Carbon Dioxide Anion Gap BUN Creatinine Creat Clearance w eGFR POC Glucometer 210 143 Random Glucose Calcium Total Bilirubin AST ALT Alkaline Phosphatase Total Protein Albumin 08/28/16 08/28/16 08/28/16 05:35 05:35 13:02 WBC 9.7 RBC 2.68 L Hgb 7.8 L Hct 23.5 L MCV 87.8 MCHC 33.1 RDW 16.6 H Plt Count 236 MPV 7.5 Neutrophils % 91.0 H Lymphocytes % 4.0 L D Monocytes % 4.0 Metamyelocytes 1 Nucleated RBCs 1 H Differential Comment Manual diff done Platelet Estimate Adequate Basophilic Stippling 4+ Anisocytosis 1+ PTT (Actin FS) Sodium 150 H Potassium 4.1 Chloride 104 Carbon Dioxide 39 H Anion Gap 7 L BUN 120 H* Creatinine 2.5 H Creat Clearance w eGFR 25.44 POC Glucometer 124 Random Glucose 94 Calcium 8.0 L Total Bilirubin 0.3 AST 14 L ALT 9 L Alkaline Phosphatase 61 Total Protein 5.0 L Albumin 2.5 L Active Medications Generic Name Dose Route Start Last Admin Trade Name Freq PRN Reason Stop Dose Admin Acetaminophen 650 mg 08/24/16 13:17 Tylenol - PO Q6H PRN PAIN Acetylcysteine 600 mg 08/24/16 18:00 08/28/16 11:35 Mucomyst 20 Oral / Inh Use Only* NEB 600 mg QIDR LESLEE Administration Albuterol Sulfate 1 amp 08/24/16 18:00 08/28/16 11:35 Ventolin 0.083% Nebulizer Soln - NEB 1 amp QIDR LESLEE Administration Atorvastatin Calcium 20 mg 08/24/16 22:00 08/27/16 22:07 Lipitor - PO 20 mg HS LESLEE Administration Bupropion HCl 150 mg 08/25/16 10:00 08/28/16 10:36 Wellbutrin Xl - PO 150 mg DAILY LESLEE Administration Docusate Sodium 100 mg 08/24/16 22:00 08/28/16 10:34 Colace - PO 100 mg BID LESLEE Administration Duloxetine HCl 60 mg 08/25/16 10:00 08/28/16 10:34 Cymbalta - PO 60 mg DAILY LESLEE Administration Epoetin Keith 10,000 unit 08/25/16 10:00 08/28/16 13:04 Procrit - IVPUSH 10,000 unit MoWeFr@10 LESLEE Administration Ferrous Sulfate 325 mg 08/24/16 22:00 08/28/16 10:35 Feosol - PO 325 mg BID LESLEE Administration Guaifenesin 600 mg 08/24/16 13:17 Mucinex - PO BID PRN Heparin Sodium (Porcine) 1,000 unit 08/26/16 10:33 08/27/16 00:00 Heparin - IVPUSH 1,000 unit PRN PRN Administration Heparin Heparin Sodium (Porcine) 5,000 unit 08/26/16 11:28 Heparin - IVPUSH PRN PRN Heparin Heparin Sodium (Porcine) 25, 500 mls @ 20 mls/hr 08/26/16 11:45 08/28/16 11:00 000 unit/ Sodium Chloride IV 20 mls/hr TITR LESLEE Administration Protocol 1,000 UNIT/HR Insulin Aspart 1 vial 08/24/16 16:30 08/28/16 13:02 Novolog Vial Sliding Scale - SQ Not Given ACHS LESLEE Protocol Metoprolol Tartrate 25 mg 08/24/16 22:00 08/28/16 10:34 Lopressor - PO 25 mg BID LESLEE Administration Nystatin 1 applic 08/25/16 10:00 08/28/16 13:01 Nystop Powder - TP 1 applic DAILY LESLEE Administration Pantoprazole Sodium 40 mg 08/25/16 22:00 08/28/16 10:34 Protonix - PO 40 mg BID LESLEE Administration Polyethylene Glycol 17 gm 08/25/16 10:00 08/28/16 10:35 Miralax (For Daily Use) - PO 17 gm DAILY LESLEE Administration Prednisone 30 mg 08/25/16 10:00 08/28/16 10:34 Deltasone - PO 30 mg DAILY LESLEE Administration Senna 2 tab 08/24/16 13:17 Senna - PO DAILY PRN CONSTIPATION Sodium Chloride 2 spray 08/24/16 13:17 [place] Nasal [place] - NS Q12H PRN NASAL CONGESTION Tamsulosin HCl 0.4 mg 08/25/16 08:30 08/28/16 08:20 Flomax - PO 0.4 mg DAILY@0830 LESLEE Administration ASSESSMENT/PLAN: 75 year old male with PMH of HTN, HLD, CAD s/p stents x2 in 2014, diastolic CHF , AFIB, COPD, DVT and PE presented to ED last night from [place] for SOB & poor PO intake since being discharged from [facility] on 08/21/2016 for similar presentation. Found to be in ARF with right pleural effusion (larger than on discharge). #Acute Respiratory Failure, multifactorial etiology (COPD exacerbation, aspiration pneumonia, chronic diastolic CHF) -saturating well on BiPAP at present, will avoid ventimask this afternoon until more stable -given 40mg Lasix IV earlier today, with improvement in breath sounds/O2 Saturation -holding Eliquis PO, Aspirin PO for possible thoracentesis -on Ertapenem for likely aspiration pneumonia -Prednisone 30mg PO DAILY -Mucomyst/Ventolin treatments -CXR reviewed, bilateral pleural effusions noted -will f/u with IR consult regarding possibility of thoracentesis -ID Consult appreciated #Anemia, (+) stool guiac -H/H stable since 1unit PRBC given on 08/26 -EPO, Feosol being given as well -patient refused GI workup (colonoscopy/endoscopy) -will continue to monitor H/H for any signs of bleeding -GI Consult appreciated #KARLOS, improving (likely d/t poor PO intake & periods of relative hypotension during hospital stay) -will monitor & trend kidney function -avoid nephrotoxic meds -hx of urinary retention with chronic lilly catheter -continue home meds: Flomax 0.4mg PO DAILY -nephrology consult appreciated #DM -ISS -BGM #HTN/HTL/A-Fib history -currently on: Lopressor 25mg PO BID, Lipitor 20mg PO HS -plan is to restart Aspirin & Eliquis after undergoing thoracentesis (first need to discuss benefits & risks of full AC in setting of recurrent GI Bleeds with patient) #Constipation -continue regimen: Colace, Miralax, Senna #Anxiety Hx -continue home meds: Wellbutrin 150mg PO DAILY, Cymbalta 60mg PO DAILY Prophylaxis/FEN -Heparin -PPI -no IVF needed at present -monitor electrolytes -NPO for now (on bipap) Dispo: Palliative care consulted. Patient has stated he does not want to be intubated before, but hesitant to make formal decision. also unsure of goals of care. Also needs social work instructor visit prior to discharge, may need LTAC. Visit type - Emergency Visit Emergency Visit: Yes ED Registration Date: 08/23/16 Care time: The patient presented to the Emergency Department on the above date and was hospitalized for further evaluation of their emergent condition. - New Patient This patient is new to me today: No - Critical Care Critical Care patient: Yes Total Critical Care Time (in minutes): 45 Critical Care Statement: The care of this patient involved high complexity decision making to prevent further life threatening deterioration of the patient 's condition and/or to evalute & treat vital organ system(s) failure or risk of failure.
[2016-08-28] MEDS ORDERED: guaiFENesin 600 MG TABLET.ER (FP) PO PRN (14:22)
[2016-08-28] MEDS ORDERED: SODIUM CHLORIDE NASAL SPRAY 44 ML BOTTLE NS PRN (14:22)
[2016-08-28] MEDS ORDERED: HEPARIN NA (PORCINE) 5,000 UNITS/ML 1ML VIAL IVPUSH PRN ×4 (14:22)
[2016-08-28] MEDS ORDERED: ACETAMINOPHEN 325 MG TABLET (FP) PO PRN (14:22)
[2016-08-28] MEDS ORDERED: SENNOSIDES 8.6MG TABLET (FP) PO PRN (14:22)
[2016-08-28 15:22] LABS: ALLENS TEST POSITIVE; ART PUNCT SITE RIGHT RADIAL; ARTERIAL BLD GAS O2 SATURATION 93.7 % (90-98.9); ARTERIAL BLOOD GAS BASE EXCESS 7.7 meq/l (-2-2); ARTERIAL BLOOD GAS HCO3 33.8 meq/L (22-26); ARTERIAL BLOOD GAS PO2 72.1 mmHg (70-100); ARTERIAL BLOOD GAS pH 7.37 (7.35-7.45); LPM/O2% 80%; PT. ON O2? YES
[2016-08-28 15:23] LABS: TYPE OF O2 BIPAP; VENT RATE 18; VT/PRESS EPAP 8
--- NOTE | 2016-08-28 15:52 | PN ---
Teaching Attending Note Name of Resident: Alan Glover ATTENDING PHYSICIAN STATEMENT I saw and evaluated the patient. I reviewed the resident's note and discussed the case with the resident. I agree with the resident's findings and plan as documented. SUBJECTIVE: Patient seen and examined in the ICU. Transferred due to acute on chronic respiratory failure. Currently awake on NIPPV saturating 94%. No pressors. OBJECTIVE: Intake & Output 08/25/16 08/26/16 08/27/16 08/28/16 23:59 23:59 23:59 23:59 Intake Total 200 350 494 444 Output Total 800 1220 1000 600 Balance -600 -870 -506 -156 Weight 214 lb 2 oz 206 lb 2.115 oz Last Vital Signs Temp Pulse Resp BP Pulse Ox 96.8 F L 63 21 108/65 92 L 08/28/16 14:40 08/28/16 15:00 08/28/16 15:00 08/28/16 15:00 08/28/16 14:04 Active Medications Acetaminophen (Tylenol -) 650 mg PO Q6H PRN PRN Reason: PAIN Acetylcysteine (Mucomyst 20 Oral / Inh Use Only*) 600 mg NEB QIDR LESLEE Albuterol Sulfate (Ventolin 0.083% Nebulizer Soln -) 1 amp NEB QIDR LESLEE Atorvastatin Calcium (Lipitor -) 20 mg PO HS LESLEE Bupropion HCl (Wellbutrin Xl -) 150 mg PO DAILY LESLEE Docusate Sodium (Colace -) 100 mg PO BID LESLEE Duloxetine HCl (Cymbalta -) 60 mg PO DAILY LESLEE Epoetin Keith (Procrit -) 10,000 unit IVPUSH MoWeFr@10 LESLEE Ferrous Sulfate (Feosol -) 325 mg PO BID LESLEE Guaifenesin (Mucinex -) 600 mg PO BID PRN Heparin Sodium (Porcine) (Heparin -) 1,000 unit IVPUSH PRN PRN PRN Reason: Heparin Heparin Sodium (Porcine) (Heparin -) 5,000 unit IVPUSH PRN PRN PRN Reason: Heparin Heparin Sodium (Porcine) 25, (000 unit/ Sodium Chloride) 500 mls @ 20 mls/hr IV TITR LESLEE; 1,000 UNIT/HR PRN Reason: Protocol Last Admin: 08/28/16 14:50 Dose: 20 mls/hr Insulin Aspart (Novolog Vial Sliding Scale -) 1 vial SQ ACHS LESLEE PRN Reason: Protocol Metoprolol Tartrate (Lopressor -) 25 mg PO BID LESLEE Nystatin (Nystop Powder -) 1 applic TP DAILY [facility] Pantoprazole Sodium (Protonix -) 40 mg PO BID [facility] Polyethylene Glycol (Miralax (For Daily Use) -) 17 gm PO DAILY [facility] Prednisone (Deltasone -) 30 mg PO DAILY [facility] Senna (Senna -) 2 tab PO DAILY PRN PRN Reason: CONSTIPATION Sodium Chloride ([place]al [place] -) 2 spray NS Q12H PRN PRN Reason: NASAL CONGESTION Tamsulosin HCl (Flomax -) 0.4 mg PO DAILY@0830 [facility] GENERAL: Awake, alert, on NIPPV HEENT: (-) icterus, dry membranes LUNGS: Scattered bilateral ronchi & bibasilar crackles noted. No wheezes. HEART: S1 and S2, (+) ESM ABDOMEN: Soft, obese, NT, ND, no guarding, no rebound, no masses. No hepatomegaly or splenomegaly. EXTREMITIES: 2+ pulses, (+) Edema NEUROLOGICAL: Non-focal SKIN: Bilateral lower ext with skin discoloration with dark yellow patches and venous stasis. No signs of fluid overload. Laboratory Results - last 24 hr 08/27/16 08/28/16 08/28/16 16:28 05:33 05:35 WBC RBC Hgb Hct MCV MCHC RDW Plt Count MPV Neutrophils % Lymphocytes % Monocytes % Metamyelocytes Nucleated RBCs Differential Comment Platelet Estimate Basophilic Stippling Anisocytosis PTT (Actin FS) 92.7 H D Sodium Potassium Chloride Carbon Dioxide Anion Gap BUN Creatinine Creat Clearance w eGFR POC Glucometer 210 143 Random Glucose Calcium Total Bilirubin AST ALT Alkaline Phosphatase Total Protein Albumin 08/28/16 08/28/16 08/28/16 05:35 05:35 13:02 WBC 9.7 RBC 2.68 L Hgb 7.8 L Hct 23.5 L MCV 87.8 MCHC 33.1 RDW 16.6 H Plt Count 236 MPV 7.5 Neutrophils % 91.0 H Lymphocytes % 4.0 L D Monocytes % 4.0 Metamyelocytes 1 Nucleated RBCs 1 H Differential Comment Manual diff done Platelet Estimate Adequate Basophilic Stippling 4+ Anisocytosis 1+ PTT (Actin FS) Sodium 150 H Potassium 4.1 Chloride 104 Carbon Dioxide 39 H Anion Gap 7 L BUN 120 H* Creatinine 2.5 H Creat Clearance w eGFR 25.44 POC Glucometer 124 Random Glucose 94 Calcium 8.0 L Total Bilirubin 0.3 AST 14 L ALT 9 L Alkaline Phosphatase 61 Total Protein 5.0 L Albumin 2.5 L ASSESSMENT/PLAN: Acute on chronic Respiratory Failure HTN HLD CAD S/P PCI Diastolic CHF AFIB COPD DVT / PE NIPPV as needed Diuresis as tolerated Aspiration precautions Prednisone Will need re-evaluation for benefit from thoracentesis ABX BD TX Normal transfusion thresholds Glycemic control Dr Vasquez Critical care time spent in reviewing chart, evaluating patient and formulating plan 35 min
--- NOTE | 2016-08-28 17:32 | CON.PULM ---
Consult Reason for Consultation:: dyspnea - History of Present Illness Chief Complaint: shortness of breath History of Present Illness: Pt readmitted 08/23 after being discharged 08/21. Severe COPD, acute on chronic respiratory failure, pneumonia and effusions Right>Left, renal failure, GI bleeding (pt refusing endoscopy and medically unstable for endoscopy), anticoagulation has been changed from Eliquis to heparin, diuretics were held in light of increased BUN and Creat (138; 3.3). Hct dropping and patient transfused. Pt today developed increased dyspnea and O2 desaturation and transferred to ICU. He is maintained on BiPAP. 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 Cardio/Vascular: Yes: CAD, CHF (diastolic), HTN, Hyperlipdemia Pulmonary: Yes: COPD, O2 Dependent, Sleep Apnea Gastrointestinal: Yes: Constipation, Diverticulosis, Hemorrhoids Renal/: Yes: Renal Inusuff, Renal Calculi Psych: Yes: Anxiety Dermatology: Yes: Cellulitis (cellulitis during 02/2016 admission) Additional Medical History: Obesity - Past Surgical History Past Surgical History: Yes: Stent - Alcohol/Substance Use Hx Alcohol Use: No History of Substance Use: reports: None - Smoking History Smoking history: Unknown if ever smoked Have you smoked in the past 12 months: No Aproximately how many cigarettes per day: 0 If you are a former smoker, when did you quit?: 6 years - Social History Usual Living Arrangement: With Spouse ADL: Independent 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 [employer] History of Recent Travel: No Home Medications - Allergies Allergies/Adverse Reactions: Allergies Allergy/AdvReac Type Severity Reaction Status Date / Time Penicillins Allergy Verified 08/23/16 18:44 - Home Medications Home Medications: Ambulatory Orders Aa/Hydrolyzed Collagen, Whey [Lps Neutral Flavor Liquid] 960 ml PO BID 08/11/16 Acetaminophen 650 mg PO Q6H PRN 08/11/16 Albuterol 2.5/Ipratropium 0.5 [Duoneb -] 1 neb IH TID 08/11/16 Amlodipine Besylate [Norvasc -] 10 mg PO DAILY 08/11/16 Apixaban [Eliquis] 2.5 mg PO BID 08/11/16 Aspirin [Aspirin EC] 81 mg PO DAILY 08/11/16 Bupropion HCl [Bupropion Xl] 150 mg PO DAILY 08/11/16 Docusate Sodium [Colace -] 100 mg PO BID 08/11/16 Duloxetine HCl 60 mg PO DAILY 08/11/16 Epoetin Keith [Epogen] 10,000 unit IM MOWEFR 08/11/16 Ferrous Sulfate 325 mg PO BID 08/11/16 Fluticasone/Vilanterol [Breo Ellipta 100-25 Mcg INH] 1 each IH DAILY 08/11/16 Guaifenesin [Mucinex] 600 mg PO Q12H 08/11/16 Mineral Oil/Hydrophil Petrolat [Aquaphor Healing Ointment] 50 gm TP BID Nystatin Powder [Nystop Powder -] 60 gm TP DAILY 08/11/16 Pantoprazole Sodium [Protonix] 40 mg PO DAILY 08/11/16 Polyethylene Glycol 3350 [Miralax 119 gm Btl -] 17 gm PO DAILY 08/11/16 Prednisone 30 mg PO DAILY 08/11/16 Sennosides [Evac-U-Gen] 17.2 mg PO DAILY 08/11/16 Sodium Chloride Nasal [place] [[place] Nasal [place] -] 2 spray NS Q12H PRN 08/23 Tamsulosin HCl [Flomax] 0.4 mg PO DAILY 08/11/16 Acetylcysteine Po/INH 20% [Mucomyst 20 Oral / INH Use Only*] 600 mg NEB QIDR # 120 vial 08/21/16 Atorvastatin Ca [Lipitor] 20 mg PO HS #30 tablet 08/21/16 Metoprolol Tartrate [Lopressor -] 25 mg PO BID #60 tablet 08/21/16 Torsemide 80 mg PO BID #60 cap 08/21/16 Family Disease History - Family Disease History Family Disease History: CA: Mother ( of colon cancer), Other: Father ( parkinson's disease) Physical Exam Vital Sings: Vital Signs Temperature 96.8 F L 08/28/16 14:40 Pulse Rate 63 08/28/16 15:00 Respiratory Rate 21 08/28/16 15:00 Blood Pressure 108/65 08/28/16 15:00 O2 Sat by Pulse Oximetry (%) 92 L 08/28/16 14:04 Constitutional: Yes: Moderate Distress, Other (Pt on BiPAP. Complaining of thirst) Eyes: No: Sclera Icterus HENT: Yes: Atraumatic Neck: Yes: Supple, Trachea Midline Cardiovascular: Yes: Regular Rate and Rhythm Respiratory: Yes: Diminished (bilateral) ...Clubbing: No Gastrointestinal: Yes: Soft. No: Hepatomegaly, Splenomegaly, Tenderness Edema: LLE: Trace, RLE: Trace Neurological: Yes: Alert Labs: CBC, BMP 08/28/16 05:35 08/28/16 05:35 ABG Results ABG pH 7.37 (7.35-7.45) 08/28/16 15:05 ABG pCO2 at Pt Temp 60.0 mmHg (35-45) H 08/28/16 15:05 ABG pO2 at Pt Temp 72.1 mmHg (70-100) D 08/28/16 15:05 ABG HCO3 33.8 meq/L (22-26) H 08/28/16 15:05 ABG O2 Sat (Measured) 93.7 % (90-98.9) 08/28/16 15:05 ABG O2 Content 12.0 % vol (15-22) L 08/28/16 15:05 ABG Base Excess 7.7 meq/l (-2-2) H 08/28/16 15:05 Imaging - Results Chest X-ray: Report Reviewed, Image Reviewed (Right > Left effusion) Assessment/Plan (1) Acute and chronic respiratory failure with hypoxia Code(s): J96.21 - ACUTE AND CHRONIC RESPIRATORY FAILURE WITH HYPOXIA (2) Atrial fibrillation Code(s): I48.91 - UNSPECIFIED ATRIAL FIBRILLATION (3) Pleural effusion Code(s): J90 - PLEURAL EFFUSION, NOT ELSEWHERE CLASSIFIED (4) Pneumonia Code(s): J18.9 - PNEUMONIA, UNSPECIFIED ORGANISM Qualifiers: Pneumonia type: due to unspecified organism Laterality: left Lung location: lower lobe of lung Qualified Code(s): J18.1 - Lobar pneumonia, unspecified organism (5) Acute on chronic diastolic (congestive) heart failure Code(s): I50.33 - ACUTE ON CHRONIC DIASTOLIC (CONGESTIVE) HEART FAILURE (6) Renal Insufficiency (7) GI Bleeding Progressive dyspnea secondary to COPD, diastolic heart failure, anemia, renal insufficiency and GI bleeding. Suggest: NIPPV O2 to maintain SaO2 >90 Inhaled bronchodilators Diuresis as tolerated Transfusion PRN Taper steroids Theraputic thoracentesis PRN
--- NOTE | 2016-08-28 17:45 | PN ---
Progress Note, Physician History of Present Illness: seems patient was eating and during eating patient became very hypoxic was transferred to icu very high co2 was put on bipap currently looks a liitle better - Current Medication List Current Medications: Active Medications Acetaminophen (Tylenol -) 650 mg PO Q6H PRN PRN Reason: PAIN Acetylcysteine (Mucomyst 20 Oral / Inh Use Only*) 600 mg NEB QIDR [facility] Last Admin: 08/28/16 17:42 Dose: 600 mg Albuterol Sulfate (Ventolin 0.083% Nebulizer Soln -) 1 amp NEB QIDR [facility] Last Admin: 08/28/16 17:42 Dose: 1 amp Atorvastatin Calcium (Lipitor -) 20 mg PO HS [facility] Bupropion HCl (Wellbutrin Xl -) 150 mg PO DAILY [facility] Docusate Sodium (Colace -) 100 mg PO BID [facility] Duloxetine HCl (Cymbalta -) 60 mg PO DAILY [facility] Epoetin Keith (Procrit -) 10,000 unit IVPUSH MoWeFr@10 [facility] Ferrous Sulfate (Feosol -) 325 mg PO BID [facility] Guaifenesin (Mucinex -) 600 mg PO BID PRN Heparin Sodium (Porcine) (Heparin -) 1,000 unit IVPUSH PRN PRN PRN Reason: Heparin Heparin Sodium (Porcine) (Heparin -) 5,000 unit IVPUSH PRN PRN PRN Reason: Heparin Heparin Sodium (Porcine) 25, (000 unit/ Sodium Chloride) 500 mls @ 20 mls/hr IV TITR [facility]; 1,000 UNIT/HR PRN Reason: Protocol Last Admin: 08/28/16 14:50 Dose: 20 mls/hr Insulin Aspart (Novolog Vial Sliding Scale -) 1 vial SQ ACHS [facility] PRN Reason: Protocol Last Admin: 08/28/16 17:02 Dose: 3 units Metoprolol Tartrate (Lopressor -) 25 mg PO BID [facility] Nystatin (Nystop Powder -) 1 applic TP DAILY [facility] Pantoprazole Sodium (Protonix -) 40 mg PO BID [facility] Polyethylene Glycol (Miralax (For Daily Use) -) 17 gm PO DAILY [facility] Prednisone (Deltasone -) 30 mg PO DAILY [facility] Senna (Senna -) 2 tab PO DAILY PRN PRN Reason: CONSTIPATION Sodium Chloride ([place] Nasal [place] -) 2 spray NS Q12H PRN PRN Reason: NASAL CONGESTION Tamsulosin HCl (Flomax -) 0.4 mg PO DAILY@0830 [facility] - Objective Vital Signs: Vital Signs Temperature 96.8 F L 08/28/16 14:40 Pulse Rate 63 08/28/16 15:00 Respiratory Rate 21 08/28/16 15:00 Blood Pressure 108/65 08/28/16 15:00 O2 Sat by Pulse Oximetry (%) 92 L 08/28/16 14:04 Constitutional: Yes: Calm, Mild Distress Cardiovascular: Yes: Pulse Irregular, Other Respiratory: Yes: On BiPap, Poor Air Entry, Other Gastrointestinal: Yes: Normal Bowel Sounds, Soft Musculoskeletal: Yes: Other Extremities: Yes: Other Neurological: Yes: Alert, Confusion, Other Psychiatric: Yes: Other Labs: CBC, BMP 08/28/16 05:35 08/28/16 05:35 INR, PTT INR 1.22 (0.82-1.09) H 08/27/16 06:00 - ....Imaging Chest X-ray: Report Reviewed, Image Reviewed Assessment/Plan - Problems (1) Acute and chronic respiratory failure with hypoxia Code(s): J96.21 - ACUTE AND CHRONIC RESPIRATORY FAILURE WITH HYPOXIA (2) Pneumonia Code(s): J18.9 - PNEUMONIA, UNSPECIFIED ORGANISM Qualifiers: Pneumonia type: due to unspecified organism Laterality: left Lung location: lower lobe of lung Qualified Code(s): J18.1 - Lobar pneumonia, unspecified organism (3) Pleural effusion Code(s): J90 - PLEURAL EFFUSION, NOT ELSEWHERE CLASSIFIED (4) Acute on chronic diastolic (congestive) heart failure Code(s): I50.33 - ACUTE ON CHRONIC DIASTOLIC (CONGESTIVE) HEART FAILURE (5) COPD (chronic obstructive pulmonary disease) Code(s): J44.9 - CHRONIC OBSTRUCTIVE PULMONARY DISEASE, UNSPECIFIED (6) Renal failure (ARF), acute on chronic Code(s): N17.9 - ACUTE KIDNEY FAILURE, UNSPECIFIED N18.9 - CHRONIC KIDNEY DISEASE, UNSPECIFIED (7) Diabetes Code(s): E11.9 - TYPE 2 DIABETES MELLITUS WITHOUT COMPLICATIONS Qualifiers: Diabetes mellitus type: type 2 Diabetes mellitus complication status: with kidney complications Diabetes mellitus complication detail: with chronic kidney disease (8) Atrial fibrillation Code(s): I48.91 - UNSPECIFIED ATRIAL FIBRILLATION 9 bilateral cellulitis of the legs plan will restart patient on abx await for decision for tapping continue resp support continue close monitoring rest as per icu primary cc time 45 min
[2016-08-28] MEDS: ATORVASTATIN CA 20 MG TABLET (FP) PO SCH (21:28)
[2016-08-28] MEDS ORDERED: FUROSEMIDE 40 MG/4 ML INJECTABLE VIAL ONE (21:57)
[2016-08-29] MEDS: ALBUTEROL SO4 0.083% IH SOL 2.5 MG/3 ML VIAL.NEB. NEB SCH ×4 (00:05→17:15)
[2016-08-29] MEDS: ACETYLCYSTEINE 20% 200MG/ML 4 ML VIAL *FOR ORAL / INH USE ONLY NEB SCH ×4 (00:05→17:15)
[2016-08-29 00:06] LABS: A/G RATIO 0.9 (0.7-1.7); ALBUMIN 2.5 g/dL (2.9-4.4); GLOBULIN, TOTAL 2.7 g/dL (2.2-3.9); M-SPIKE 0.2 g/dL (Not Observed); TOTAL PROTEIN 5.2 g/dL (6.0-8.5)
[2016-08-29] MEDS ORDERED: morphine CARPU-JECT 2 MG/1 ML DISP.SYRIN IVPUSH ONE (05:19)
[2016-08-29 06:00] LABS: MCH 28.6 pg (25.7-33.7); MCHC 31.9 g/dl (32.0-35.9); MEAN CELL VOLUME 89.6 fl (80-96); MEAN PLT VOLUME 7.3 fl (7.5-11.1); PLATELET COUNT 299 K/MM3 (134-434); RDW 16.6 % (11.9-15.9); WHITE BLOOD COUNT 13.9 K/mm3 (4.0-10.0)
[2016-08-29] MEDS: INSULIN SLIDING SCALE (NOVOLOG) 1 VIAL SQ SCH ×4 (06:23→22:00)
[2016-08-29] MEDS ORDERED: ERTAPENEM SODIUM 1 GM in SODIUM CHLORIDE 50 ML IVPB ONE (08:30)
--- NOTE | 2016-08-29 09:13 | PN ---
Progress Note, Physician Chief Complaint: On BiPap TELE: NSR with APCs. CXR: RLL consolidation with effusions - Current Medication List Current Medications: Active Medications Acetaminophen (Tylenol -) 650 mg PO Q6H PRN PRN Reason: PAIN Last Admin: 08/28/16 21:29 Dose: 650 mg Acetylcysteine (Mucomyst 20 Oral / Inh Use Only*) 600 mg NEB QIDR [facility] Last Admin: 08/29/16 06:16 Dose: 600 mg Albuterol Sulfate (Ventolin 0.083% Nebulizer Soln -) 1 amp NEB QIDR [facility] Last Admin: 08/29/16 06:16 Dose: 1 amp Atorvastatin Calcium (Lipitor -) 20 mg PO HS [facility] Last Admin: 08/28/16 21:28 Dose: 20 mg Bupropion HCl (Wellbutrin Xl -) 150 mg PO DAILY [facility] Docusate Sodium (Colace -) 100 mg PO BID [facility] Last Admin: 08/28/16 21:29 Dose: 100 mg Duloxetine HCl (Cymbalta -) 60 mg PO DAILY [facility] Epoetin Keith (Procrit -) 10,000 unit IVPUSH MoWeFr@10 [facility] Ferrous Sulfate (Feosol -) 325 mg PO BID [facility] Last Admin: 08/28/16 21:29 Dose: 325 mg Guaifenesin (Mucinex -) 600 mg PO BID PRN Heparin Sodium (Porcine) (Heparin -) 1,000 unit IVPUSH PRN PRN PRN Reason: Heparin Heparin Sodium (Porcine) (Heparin -) 5,000 unit IVPUSH PRN PRN PRN Reason: Heparin Heparin Sodium (Porcine) 25, (000 unit/ Sodium Chloride) 500 mls @ 20 mls/hr IV TITR [facility]ES[facility]E; 1,000 UNIT/HR PRN Reason: Protocol Last Titration: 08/28/16 21:00 Dose: 950 unit/hr Ertapenem 1 gm/ Sodium (Chloride) 50 mls @ 50 mls/hr IVPB ONCE ONE PRN Reason: Protocol Stop: 08/29/16 09:29 Insulin Aspart (Novolog Vial Sliding Scale -) 1 vial SQ ACHS [facility] PRN Reason: Protocol Last Admin: 08/29/16 06:23 Dose: Not Given Metoprolol Tartrate (Lopressor -) 25 mg PO BID [facility] Last Admin: 08/28/16 21:28 Dose: 25 mg Nystatin (Nystop Powder -) 1 applic TP DAILY [facility] Pantoprazole Sodium (Protonix -) 40 mg PO BID [facility] Last Admin: 08/28/16 21:28 Dose: 40 mg Polyethylene Glycol (Miralax (For Daily Use) -) 17 gm PO DAILY [facility] Prednisone (Deltasone -) 30 mg PO DAILY [facility] Senna (Senna -) 2 tab PO DAILY PRN PRN Reason: CONSTIPATION Sodium Chloride ([place] Nasal [place] -) 2 spray NS Q12H PRN PRN Reason: NASAL CONGESTION Tamsulosin HCl (Flomax -) 0.4 mg PO DAILY@0830 [facility] - Objective Vital Signs: Vital Signs Temperature 97.4 F L 08/29/16 06:00 Pulse Rate 63 08/29/16 08:00 Respiratory Rate 18 08/29/16 08:30 Blood Pressure 115/56 08/29/16 08:00 O2 Sat by Pulse Oximetry (%) 100 08/29/16 08:30 Constitutional: Yes: No Distress Eyes: Yes: Conjunctiva Clear Cardiovascular: Yes: Regular Rate and Rhythm Respiratory: Yes: Other (No wheezing. Decreased breath sounds at bases b/l) Gastrointestinal: Yes: Soft Edema: No Labs: CBC, BMP 08/29/16 05:20 INR, PTT INR 1.22 (0.82-1.09) H 08/27/16 06:00 Microbiology 08/23/16 19:10 Blood - Peripheral Venous Blood Culture - Final NO GROWTH AFTER 5 DAYS INCUBATION 08/23/16 19:10 Blood - Peripheral Venous Blood Culture - Final NO GROWTH AFTER 5 DAYS INCUBATION Laboratory Tests 08/26/16 08/29/16 08/29/16 23:25 05:20 05:20 WBC 13.9 H D Hgb 8.4 L Plt Count 299 D PTT (Actin FS) 124.5 H D Sodium Potassium BUN Creatinine Stool Occult Blood Positive 08/29/16 05:20 WBC Hgb Plt Count PTT (Actin FS) Sodium Pending Potassium Pending BUN Pending Creatinine Pending Stool Occult Blood Assessment/Plan IMP: Acute on chronic exacerbation COPD, Right lower lobe PNA Acute on chronic renal failure, suspected ATN from periods of relative hypotension Anemia CAD s/p PCI History of DVT REC: 1. PNA: -superimposed on chronic COPD, chronic diastolic CHF -BiPAP -Abx as per ID, possible new aspiration event -Eliquis held, now on heparin gtts for possible thoracentesis 2. ARF: -As per renal -Avoid nephrotoxins (no PIPER/ARB) -Avoid hypotension, hold parameters placed on amlodipine 3. 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 CAD s/p PCI: -ASA on hold due to anemia and guaiac + stool, possible thoracentesis -Resume when feasible post procedure.
--- NOTE | 2016-08-29 09:27 | PN ---
Physical Exam: SUBJECTIVE: Patient seen and examined at bedside this AM. At mental status baseline, AAO and in no acute distress. Afebrile overnight with stable vitals. Keeps requesting to drink & eat, have repeatedly explained to patient that he is a high aspiration risk and is hypercapneic & needs to be NPO while on bipap. States breathignf eels better than yesterday. Denies any other new complaints. OBJECTIVE: Vital Signs Period Temp Pulse Resp BP Sys/[place] Pulse Ox Last 24 Hr 96.8 F-98.4 F 55-80 16-24 104-128/47-87 92-100 GENERAL: Awake, alert, and fully oriented, in no acute distress. HEENT: Atraumatic, EOMI, PERRLA, No lymphadenopathy noted, dry membranes LUNGS: Breath sounds diminished on right middle & lower lung; scattered ronchi & bibasilar crackles noted. No wheezes or accessory muscle use noted. HEART: Regular rate and rhythm, normal S1 and S2 with systolic murmur, rub or gallop. ABDOMEN: Soft, obese, nontender, not distended, normoactive bowel sounds, no guarding, no rebound, no masses. No hepatomegaly or splenomegaly. EXTREMITIES: 2+ pulses, warm, well-perfused. No calf tenderness. No peripheral edema. NEUROLOGICAL: Cranial nerves II-XII intact. Normal speech. Gait deferred. PSYCHIATRIC: Cooperative. Good eye contact. Anxious at times during interview. SKIN: Bilateral lower ext with skin discoloration with dark yellow patches and venous stasis. No signs of fluid overload. Laboratory Results - last 24 hr 08/26/16 08/28/16 08/28/16 08:10 05:35 13:02 WBC RBC Hgb Hct MCV MCHC RDW Plt Count MPV Neutrophils % 91.0 H Lymphocytes % 4.0 L D Monocytes % 4.0 Metamyelocytes 1 Nucleated RBCs 1 H Differential Comment Manual diff done Platelet Estimate Adequate Basophilic Stippling 4+ Anisocytosis 1+ PTT (Actin FS) Puncture Site ABG pH ABG pCO2 at Pt Temp ABG pO2 at Pt Temp ABG HCO3 ABG O2 Sat (Measured) ABG O2 Content ABG Base Excess Issac Test O2 Delivery Device Oxygen Flow Rate Vent Mode Vent Rate Pressure Support Vent POC Glucometer 124 Prot Electrophoresis Serum Total Protein 5.2 L Albumin 2.5 L Globulin 2.7 Albumin/Globulin Ratio 0.9 Ifzcm-9-Lgeocddsq 0.4 Yxcxr-6-Vwoqjntpa 1.2 H Beta Globulins 0.7 Gamma Globulins 0.4 SADAF M-Mendez 0.2 H Tiss Transglutamin IgG < 2 Tiss Transglutamin IgA < 2 08/28/16 08/28/16 08/28/16 15:05 16:58 17:30 WBC RBC Hgb Hct MCV MCHC RDW Plt Count MPV Neutrophils % Lymphocytes % Monocytes % Metamyelocytes Nucleated RBCs Differential Comment Platelet Estimate Basophilic Stippling Anisocytosis PTT (Actin FS) 85.5 H Puncture Site Right radial ABG pH 7.37 ABG pCO2 at Pt Temp 60.0 H ABG pO2 at Pt Temp 72.1 D ABG HCO3 33.8 H ABG O2 Sat (Measured) 93.7 ABG O2 Content 12.0 L ABG Base Excess 7.7 H Issac Test Positive O2 Delivery Device Bipap Oxygen Flow Rate 80% Vent Mode Ipap 18 Vent Rate 18 Pressure Support Vent Epap 8 POC Glucometer 178.03815 Prot Electrophoresis Serum Total Protein Albumin Globulin Albumin/Globulin Ratio Myfyx-6-Jpifyiezv Ujdyj-8-Kaxxsvmvg Beta Globulins Gamma Globulins SADAF M-Mendez Tiss Transglutamin IgG Tiss Transglutamin IgA 08/28/16 08/29/16 08/29/16 22:10 05:20 05:20 WBC 13.9 H D RBC 2.96 L Hgb 8.4 L Hct 26.5 L MCV 89.6 MCHC 31.9 L RDW 16.6 H Plt Count 299 D MPV 7.3 L Neutrophils % Lymphocytes % Monocytes % Metamyelocytes Nucleated RBCs Differential Comment Platelet Estimate Basophilic Stippling Anisocytosis PTT (Actin FS) 124.5 H D Puncture Site ABG pH ABG pCO2 at Pt Temp ABG pO2 at Pt Temp ABG HCO3 ABG O2 Sat (Measured) ABG O2 Content ABG Base Excess Issac Test O2 Delivery Device Oxygen Flow Rate Vent Mode Vent Rate Pressure Support Vent POC Glucometer 163.89960 Prot Electrophoresis Serum Total Protein Albumin Globulin Albumin/Globulin Ratio Dertn-4-Impgjbfhw Skmyn-2-Fezaqqmyc Beta Globulins Gamma Globulins SADAF M-Mendez Tiss Transglutamin IgG Tiss Transglutamin IgA Active Medications Generic Name Dose Route Start Last Admin Trade Name Freq PRN Reason Stop Dose Admin Acetaminophen 650 mg 08/28/16 14:22 08/28/16 21:29 Tylenol - PO 650 mg Q6H PRN Administration PAIN Acetylcysteine 600 mg 08/28/16 18:00 08/29/16 06:16 Mucomyst 20 Oral / Inh Use Only* NEB 600 mg QIDR [facility] Administration Albuterol Sulfate 1 amp 08/28/16 18:00 08/29/16 06:16 Ventolin 0.083% Nebulizer Soln - NEB 1 amp QIDR [facility] Administration Atorvastatin Calcium 20 mg 08/28/16 22:00 08/28/16 21:28 Lipitor - PO 20 mg HS [facility] Administration Bupropion HCl 150 mg 08/29/16 10:00 Wellbutrin Xl - PO DAILY [facility] Docusate Sodium 100 mg 08/28/16 22:00 08/28/16 21:29 Colace - PO 100 mg BID [facility] Administration Duloxetine HCl 60 mg 08/29/16 10:00 Cymbalta - PO DAILY [facility] Epoetin Keith 10,000 unit 08/30/16 10:00 Procrit - IVPUSH MoWeFr@10 [facility] Ferrous Sulfate 325 mg 08/28/16 22:00 08/28/16 21:29 Feosol - PO 325 mg BID [facility] Administration Guaifenesin 600 mg 08/28/16 14:22 Mucinex - PO BID PRN Heparin Sodium (Porcine) 1,000 unit 08/28/16 14:22 Heparin - IVPUSH PRN PRN Heparin Heparin Sodium (Porcine) 5,000 unit 08/28/16 14:22 Heparin - IVPUSH PRN PRN Heparin Heparin Sodium (Porcine) 25, 500 mls @ 20 mls/hr 08/28/16 14:22 08/28/16 21:00 000 unit/ Sodium Chloride IV 950 unit/hr TITR [facility] Titration Protocol 1,000 UNIT/HR Ertapenem 1 gm/ Sodium 50 mls @ 50 mls/hr 08/29/16 08:30 Chloride IVPB 08/29/16 09:29 ONCE ONE Protocol Insulin Aspart 1 vial 08/28/16 16:30 08/29/16 06:23 Novolog Vial Sliding Scale - SQ Not Given ACHS [facility] Protocol Metoprolol Tartrate 25 mg 08/28/16 22:00 08/28/16 21:28 Lopressor - PO 25 mg BID [facility] Administration Nystatin 1 applic 08/29/16 10:00 Nystop Powder - TP DAILY [facility] Pantoprazole Sodium 40 mg 08/28/16 22:00 08/28/16 21:28 Protonix - PO 40 mg BID [facility] Administration Polyethylene Glycol 17 gm 08/29/16 10:00 Miralax (For Daily Use) - PO DAILY [facility] Prednisone 30 mg 08/29/16 10:00 Deltasone - PO DAILY [facility] Senna 2 tab 08/28/16 14:22 Senna - PO DAILY PRN CONSTIPATION Sodium Chloride 2 spray 08/28/16 14:22 [place] Nasal [place] - NS Q12H PRN NASAL CONGESTION Tamsulosin HCl 0.4 mg 08/29/16 08:30 Flomax - PO DAILY@0830 [facility] ASSESSMENT/PLAN: 75 year old male with PMH of HTN, HLD, CAD s/p stents x2 in 2014, diastolic CHF , AFIB, COPD, DVT and PE presented to ED last night from [place] for SOB & poor PO intake since being discharged from [facility] on 08/21/2016 for similar presentation. Found to be in ARF with right pleural effusion (larger than on discharge). #Acute Respiratory Failure, multifactorial etiology (aspiration pneumonia, superimposed on COPD exacerbation &chronic diastolic CHF) -saturating well on BiPAP -Lasix 40mg in AM, 60mg in PM IV pushes yesterday with good improvement in respiration -holding Eliquis PO, Aspirin PO for possible thoracentesis -Ertapenem for aspiration pneumonia -Prednisone 30mg PO DAILY -Mucomyst/Ventolin treatments -CXR reviewed, bilateral pleural effusions noted (minimal improvement compared to yesterday) -IR Consult appreciated -ID Consult appreciated #Anemia, (+) stool guiac -H/H stable since 1unit PRBC given on 08/26 -EPO, Feosol being given as well -patient refused GI workup (colonoscopy/endoscopy) -will continue to monitor H/H for any signs of bleeding -GI Consult appreciated #KARLOS, improving (likely d/t poor PO intake & periods of relative hypotension during hospital stay) -will monitor & trend kidney function -avoid nephrotoxic meds -hx of urinary retention with chronic lilly catheter -continue home meds: Flomax 0.4mg PO DAILY -nephrology consult appreciated #HTN/HTL/A-Fib history -currently on: Lopressor 25mg PO BID, Lipitor 20mg PO HS -plan is to restart Aspirin & Eliquis after undergoing thoracentesis (first need to discuss benefits & risks of full AC in setting of recurrent GI Bleeds with patient) #Constipation -continue regimen: Colace, Miralax, Senna #Anxiety Hx -continue home meds: Wellbutrin 150mg PO DAILY, Cymbalta 60mg PO DAILY #DM -ISS -BGM Prophylaxis/FEN -Heparin -PPI -no IVF needed at present -monitor electrolytes -NPO for now (on bipap) Dispo: Palliative care consulted. Patient has stated he does not want to be intubated before, but hesitant to make formal decision. also unsure of goals of care. Also needs social services visit prior to discharge, may need LTAC. Visit type - Emergency Visit Emergency Visit: Yes ED Registration Date: 08/23/16 Care time: The patient presented to the Emergency Department on the above date and was hospitalized for further evaluation of their emergent condition. - New Patient This patient is new to me today: No - Critical Care Critical Care patient: Yes Total Critical Care Time (in minutes): 45 Critical Care Statement: The care of this patient involved high complexity decision making to prevent further life threatening deterioration of the patient 's condition and/or to evalute & treat vital organ system(s) failure or risk of failure.
[2016-08-29 09:50] LABS: ARTERIAL BLD GAS O2 SATURATION 92.4 % (90-98.9); ARTERIAL BLOOD GAS BASE EXCESS 8.3 meq/l (-2-2); ARTERIAL BLOOD GAS HCO3 35.8 meq/L (22-26); ARTERIAL BLOOD GAS PO2 71.3 mmHg (70-100)
[2016-08-29 09:51] LABS: ALLENS TEST POSITIVE
[2016-08-29 09:53] LABS: ART PUNCT SITE RIGHT RADIAL; ARTERIAL BLOOD GAS pH 7.29 (7.35-7.45); LPM/O2% 80; PT. ON O2? YES; TYPE OF O2 BIPAP; VENT RATE 18; VT/PRESS EPAP 8
[2016-08-29 10:42] LABS: ALBUMIN 2.7 g/dl (3.4-5.0); CALCIUM 8.2 mg/dL (8.5-10.1)
[2016-08-29 10:43] LABS: CREATININE 2.4 mg/dL (0.7-1.3)
[2016-08-29 10:44] LABS: BILIRUBIN,TOTAL 0.4 mg/dL (0.2-1.0); TOT PROT 5.5 g/dl (6.4-8.2)
--- NOTE | 2016-08-29 10:46 | PN ---
Progress Note, Physician History of Present Illness: patient now on bipap still needing a lot of support patient now slowly improving - Current Medication List Current Medications: Active Medications Acetaminophen (Tylenol -) 650 mg PO Q6H PRN PRN Reason: PAIN Last Admin: 08/28/16 21:29 Dose: 650 mg Acetylcysteine (Mucomyst 20 Oral / Inh Use Only*) 600 mg NEB QIDR [facility] Last Admin: 08/29/16 06:16 Dose: 600 mg Albuterol Sulfate (Ventolin 0.083% Nebulizer Soln -) 1 amp NEB QIDR [facility] Last Admin: 08/29/16 06:16 Dose: 1 amp Atorvastatin Calcium (Lipitor -) 20 mg PO HS [facility] Last Admin: 08/28/16 21:28 Dose: 20 mg Bupropion HCl (Wellbutrin Xl -) 150 mg PO DAILY [facility] Docusate Sodium (Colace -) 100 mg PO BID [facility] Last Admin: 08/28/16 21:29 Dose: 100 mg Duloxetine HCl (Cymbalta -) 60 mg PO DAILY [facility] Epoetin Keith (Procrit -) 10,000 unit IVPUSH MoWeFr@10 [facility] Ferrous Sulfate (Feosol -) 325 mg PO BID [facility] Last Admin: 08/28/16 21:29 Dose: 325 mg Guaifenesin (Mucinex -) 600 mg PO BID PRN Heparin Sodium (Porcine) (Heparin -) 1,000 unit IVPUSH PRN PRN PRN Reason: Heparin Heparin Sodium (Porcine) (Heparin -) 5,000 unit IVPUSH PRN PRN PRN Reason: Heparin Heparin Sodium (Porcine) 25, (000 unit/ Sodium Chloride) 500 mls @ 20 mls/hr IV TITR [facility]; 1,000 UNIT/HR PRN Reason: Protocol Last Titration: 08/28/16 21:00 Dose: 950 unit/hr Insulin Aspart (Novolog Vial Sliding Scale -) 1 vial SQ ACHS [facility] PRN Reason: Protocol Last Admin: 08/29/16 06:23 Dose: Not Given Metoprolol Tartrate (Lopressor -) 25 mg PO BID [facility] Last Admin: 08/28/16 21:28 Dose: 25 mg Nystatin (Nystop Powder -) 1 applic TP DAILY [facility] Pantoprazole Sodium (Protonix -) 40 mg PO BID [facility] Last Admin: 05/22/17 21:28 Dose: 40 mg Polyethylene Glycol (Miralax (For Daily Use) -) 17 gm PO DAILY [facility] Prednisone (Deltasone -) 30 mg PO DAILY [facility] Senna (Senna -) 2 tab PO DAILY PRN PRN Reason: CONSTIPATION Sodium Chloride ([place] Nasal [place] -) 2 spray NS Q12H PRN PRN Reason: NASAL CONGESTION Tamsulosin HCl (Flomax -) 0.4 mg PO DAILY@0830 [facility] - Objective Vital Signs: Vital Signs Temperature 97.3 F L 08/29/16 10:00 Pulse Rate 76 08/29/16 10:02 Respiratory Rate 18 08/29/16 10:00 Blood Pressure 121/47 08/29/16 10:00 O2 Sat by Pulse Oximetry (%) 92 L 08/29/16 10:03 Constitutional: Yes: Anxious, Moderate Distress, Obese Cardiovascular: Yes: Pulse Irregular, S1, S2 Respiratory: Yes: Regular, On BiPap, Poor Air Entry Gastrointestinal: Yes: Normal Bowel Sounds, Soft Musculoskeletal: Yes: Other Extremities: Yes: Other Integumentary: Yes: Erythema (resolved) Neurological: Yes: Alert, Oriented Psychiatric: Yes: Alert, Oriented Labs: CBC, BMP 08/29/16 05:20 08/29/16 05:20 INR, PTT INR 1.22 (0.82-1.09) H 08/27/16 06:00 - ....Imaging Chest X-ray: Report Reviewed, Image Reviewed Assessment/Plan - Problems (1) Acute and chronic respiratory failure with hypoxia Code(s): J96.21 - ACUTE AND CHRONIC RESPIRATORY FAILURE WITH HYPOXIA (2) Pneumonia Code(s): J18.9 - PNEUMONIA, UNSPECIFIED ORGANISM Qualifiers: Pneumonia type: due to unspecified organism Laterality: left Lung location: lower lobe of lung Qualified Code(s): J18.1 - Lobar pneumonia, unspecified organism (3) Pleural effusion Code(s): J90 - PLEURAL EFFUSION, NOT ELSEWHERE CLASSIFIED (4) Acute on chronic diastolic (congestive) heart failure Code(s): I50.33 - ACUTE ON CHRONIC DIASTOLIC (CONGESTIVE) HEART FAILURE (5) COPD (chronic obstructive pulmonary disease) Code(s): J44.9 - CHRONIC OBSTRUCTIVE PULMONARY DISEASE, UNSPECIFIED (6) Renal failure (ARF), acute on chronic Code(s): N17.9 - ACUTE KIDNEY FAILURE, UNSPECIFIED N18.9 - CHRONIC KIDNEY DISEASE, UNSPECIFIED (7) Diabetes Code(s): E11.9 - TYPE 2 DIABETES MELLITUS WITHOUT COMPLICATIONS Qualifiers: Diabetes mellitus type: type 2 Diabetes mellitus complication status: with kidney complications Diabetes mellitus complication detail: with chronic kidney disease (8) Atrial fibrillation Code(s): I48.91 - UNSPECIFIED ATRIAL FIBRILLATION 9 bilateral cellulitis of the legs plan continue current mgmt rest resp support continue abx for now awaiting tapping of the leg rest as per icu cc time 40 min
[2016-08-29] MEDS ORDERED: PT OWN MED DRAWER 7, Y5N ONE (10:55)
[2016-08-29] MEDS: METOPROLOL TARTRATE 25 MG TABLET (FP) PO SCH ×2 (11:01→21:07)
[2016-08-29] MEDS: TAMSULOSIN HCL 0.4 MG CAP.ER.24H (FP) PO SCH (11:02)
[2016-08-29] MEDS: predniSONE 10 MG TABLET (UD) PO SCH (11:02)
--- NOTE | 2016-08-29 11:04 | PN ---
Progress Note (short form) - Note Progress Note: Subjective: The patient was seen and examined in the ICU on Bipap, he is asking for water. Current Medications Generic Name Dose Route Start Last Admin Trade Name Freq PRN Reason Stop Dose Admin Acetaminophen 650 mg 08/28/16 14:22 08/28/16 21:29 Tylenol - PO 650 mg Q6H PRN Administration PAIN Acetylcysteine 600 mg 08/28/16 18:00 08/29/16 10:45 Mucomyst 20 Oral / Inh Use Only* NEB 600 mg QIDR [facility] Administration Albuterol Sulfate 1 amp 08/28/16 18:00 08/29/16 10:45 Ventolin 0.083% Nebulizer Soln - NEB 1 amp QIDR [facility] Administration Atorvastatin Calcium 20 mg 08/28/16 22:00 08/28/16 21:28 Lipitor - PO 20 mg HS [facility] Administration Bupropion HCl 150 mg 08/29/16 10:00 08/29/16 11:02 Wellbutrin Xl - PO 150 mg DAILY [facility] Administration Docusate Sodium 100 mg 08/28/16 22:00 08/29/16 11:05 Colace - PO 100 mg BID [facility] Administration Duloxetine HCl 60 mg 08/29/16 10:00 08/29/16 11:05 Cymbalta - PO 60 mg DAILY [facility] Administration Epoetin Keith 10,000 unit 08/30/16 10:00 Procrit - IVPUSH MoWeFr@10 [facility] Ferrous Sulfate 325 mg 08/28/16 22:00 08/29/16 12:00 Feosol - PO 325 mg BID [facility] Administration Guaifenesin 600 mg 08/28/16 14:22 Mucinex - PO BID PRN Heparin Sodium (Porcine) 1,000 unit 08/28/16 14:22 Heparin - IVPUSH PRN PRN Heparin Heparin Sodium (Porcine) 5,000 unit 08/28/16 14:22 Heparin - IVPUSH PRN PRN Heparin Heparin Sodium (Porcine) 25, 500 mls @ 20 mls/hr 08/28/16 14:22 08/29/16 10:30 000 unit/ Sodium Chloride IV 0 unit/hr TITR [facility] Titration Protocol 1,000 UNIT/HR Ertapenem 1 gm/ Sodium 50 mls @ 100 mls/hr 08/30/16 10:00 Chloride IVPB DAILY [facility] Protocol Insulin Aspart 1 vial 08/28/16 16:30 08/29/16 12:30 Novolog Vial Sliding Scale - SQ Not Given ACHS [facility] Protocol Metoprolol Tartrate 25 mg 08/28/16 22:00 08/29/16 11:01 Lopressor - PO 25 mg BID [facility] Administration Nystatin 1 applic 08/29/16 10:00 Nystop Powder - TP DAILY [facility] Pantoprazole Sodium 40 mg 08/28/16 22:00 08/29/16 11:05 Protonix - PO 40 mg BID [facility] Administration Polyethylene Glycol 17 gm 08/29/16 10:00 08/29/16 13:38 Miralax (For Daily Use) - PO Not Given DAILY [facility] Prednisone 30 mg 08/29/16 10:00 08/29/16 11:02 Deltasone - PO 30 mg DAILY [facility] Administration Senna 2 tab 08/28/16 14:22 Senna - PO DAILY PRN CONSTIPATION Sodium Chloride 2 spray 08/28/16 14:22 [place] Nasal [place] - NS Q12H PRN NASAL CONGESTION Tamsulosin HCl 0.4 mg 08/29/16 08:30 08/29/16 11:02 Flomax - PO 0.4 mg DAILY@0830 [facility] Administration Objective: Vital Signs Period Temp Pulse Resp BP Sys/[place] Pulse Ox Last 24 Hr 97 F-97.6 F 55-80 16-20 104-128/47-87 92-100 Physical Exam: General: NAD, A&Ox3 Lungs: Decreased breath sounds bilaterally Heart: RRR, S1S2 Abd: Soft, non-tender, non-distended. Normoactive bowel sounds Ext: B/l lower extremity edema. Chronic venous stasis changes CBCD WBC 13.9 K/mm3 (4.0-10.0) H D 08/29/16 05:20 RBC 2.96 M/mm3 (4.00-5.60) L 08/29/16 05:20 Hgb 8.4 GM/dL (11.7-16.9) L 08/29/16 05:20 Hct 26.5 % (35.4-49) L 08/29/16 05:20 MCV 89.6 fl (80-96) 08/29/16 05:20 MCHC 31.9 g/dl (32.0-35.9) L 08/29/16 05:20 RDW 16.6 % (11.9-15.9) H 08/29/16 05:20 Plt Count 299 K/MM3 (134-434) D 08/29/16 05:20 MPV 7.3 fl (7.5-11.1) L 08/29/16 05:20 CMP Sodium 151 mmol/L (136-145) H 08/29/16 05:20 Potassium 4.2 mmol/L (3.5-5.1) 08/29/16 05:20 Chloride 106 mmol/L (98-107) 08/29/16 05:20 Carbon Dioxide 34 mmol/L (21-32) H 08/29/16 05:20 Anion Gap 10 (8-16) 08/29/16 05:20 BUN 107 mg/dL (7-18) H* 08/29/16 05:20 Creatinine 2.4 mg/dL (0.7-1.3) H 08/29/16 05:20 Creat Clearance w eGFR 26.67 (>60) 08/29/16 05:20 Random Glucose 92 mg/dL (74-106) 08/29/16 05:20 Calcium 8.2 mg/dL (8.5-10.1) L 08/29/16 05:20 Total Bilirubin 0.4 mg/dL (0.2-1.0) D 08/29/16 05:20 AST 21 U/L (15-37) D 08/29/16 05:20 ALT 11 U/L (12-78) L D 08/29/16 05:20 Alkaline Phosphatase 65 U/L (45-117) 08/29/16 05:20 Total Protein 5.5 g/dl (6.4-8.2) L 08/29/16 05:20 Albumin 2.7 g/dl (3.4-5.0) L 08/29/16 05:20 CARDIAC ENZYMES Creatine Kinase 9 IU/L (39-308) L 08/24/16 05:20 Troponin I < 0.02 ng/ml (0.00-0.05) 08/24/16 05:20 Microbiology 08/23/16 19:10 Blood - Peripheral Venous Blood Culture - Final NO GROWTH AFTER 5 DAYS INCUBATION 08/23/16 19:10 Blood - Peripheral Venous Blood Culture - Final NO GROWTH AFTER 5 DAYS INCUBATION 08/23/16 20:26 Urine - Urine Clean Catch Urine Culture - Final NO GROWTH OBTAINED 08/23/16 21:56 Urine For Antigen Detection Legionella Antigen - Final 08/23/16 21:56 Urine For Antigen Detection Streptococcus pneumoniae Antigen (M - Final Assessment: This is a 75 year old male with PMHx of HTN, hyperlipidemia, CAD s/ p stenting x2 (2014), diastolic heart failure, a.fib, COPD, respiratory failure requiring intubation (02/2016-04/2016), GI bleed, h/o DVT and PE, urinary retention with chronic lilly catheter who presented to the ED with shortness of breath and refusal to take any po medications. Plan: 3) Pulmonary: Acute on chronic hypoxic hypercapnic respiratory failure likely 2/ 2 aspiration pneumonia - Remains on Bipap, ABG improved after NIPPV adjustments - Chest X-ray with b/l pleural effusions B/l pleural effusions R>L - Recent admission with left thoracentesis about two weeks ago - Now with increasing right pleural effusion - Per IR, will not perform thoracentesis until patient stable off bipap Chronic respiratory failure - Continue Prednisone 30mg po daily - Continue Bipap alternating with NRB - Continue Duonebs - Continue Mucomyst - Appreciate pulmonary consult 2) GI: GI bleed - Stool guiac per GI positive - S/p 1u PRBC on 08/26 - Monitor H/H closely, will likely need further transfusions - Patient has refused GI workup including colonoscopy, EGD - Continue Protonix - Appreciate GI consult 2) ID: HCAP possibly 2/2 gram negative bacteria - Completed Ertapenem on 08/28 - Now with possible aspiration pneumonia. Will continue Ertapenem - Appreciate ID consult 4) Cardiology: Chronic diastolic heart failure - Hold all diuretics as the patient appears intravascularly depleted - Hold ASA for possible right thoracentesis DVT/PE - Was on Eliquis at home, discontinued - On Heparin gtt now Paroxysmal a.fib HTN - Continue Metoprolol - Continue Norvasc Hyperlipidemia - Continue Lipitor 5) : KARLOS on CKD - Continue to monitor Cr - Appreciate nephrology consult 6) F/E/N: - Monitor electrolytes - Diabetic/low sodium diet 7) Prophylaxis: - Continue Heparin gtt - PT 8) Dispo: - Requires continued inpatient care - May benefit from LTAC CODE STATUS: FULL CODE Visit type - Emergency Visit Emergency Visit: Yes ED Registration Date: 08/23/16 Care time: The patient presented to the Emergency Department on the above date and was hospitalized for further evaluation of their emergent condition. - New Patient This patient is new to me today: No - Critical Care Critical Care patient: Yes Total Critical Care Time (in minutes): 45 Critical Care Statement: The care of this patient involved high complexity decision making to prevent further life threatening deterioration of the patient 's condition and/or to evalute & treat vital organ system(s) failure or risk of failure.
[2016-08-29] MEDS: DULoxetine HCL 30 MG CAPSULE.DR (FP) PO SCH (11:05)
[2016-08-29] MEDS: DOCUSATE SODIUM 100 MG CAPSULE (FP) PO SCH ×2 (11:05→21:07)
[2016-08-29] MEDS: PANTOPRAZOLE 40 MG TABLET (FP) PO SCH ×2 (11:05→21:07)
[2016-08-29 11:43] LABS: ARTERIAL BLD GAS O2 SATURATION 96.5 % (90-98.9); ARTERIAL BLOOD GAS HCO3 35.4 meq/L (22-26); ARTERIAL BLOOD GAS PO2 81.5 mmHg (70-100); ARTERIAL BLOOD GAS pH 7.35 (7.35-7.45)
[2016-08-29 11:45] LABS: ALLENS TEST POSITIVE; ART PUNCT SITE RIGHT RADIAL; LPM/O2% 80%; PT. ON O2? YES; TYPE OF O2 BIPAP
[2016-08-29 11:46] LABS: MECH. VENT. Y; VENT RATE 26; VT/PRESS 18/8
[2016-08-29] MEDS: FERROUS SO4 325 MG TABLET (FP) PO SCH ×2 (12:00→21:07)
--- NOTE | 2016-08-29 12:30 | PN ---
Teaching Attending Note Name of Resident: Alan Glover ATTENDING PHYSICIAN STATEMENT I saw and evaluated the patient. I reviewed the resident's note and discussed the case with the resident. I agree with the resident's findings and plan as documented. SUBJECTIVE: Patient seen and examined in the ICU. Awake on NIPPV. Noted acute on chronic hypercapnea on ABG. Parameters adjusted and mask was adjusted for leak. No pressors. CXR: No gross change in moderate bilateral pleural effusions. OBJECTIVE: Intake & Output 08/26/16 08/27/16 08/28/16 08/29/16 23:59 23:59 23:59 23:59 Intake Total 350 494 594 380 Output Total 1220 1000 1500 700 Balance -870 -506 -906 -320 Weight 206 lb 2.115 oz 205 lb 4 oz Last Vital Signs Temp Pulse Resp BP Pulse Ox 97.3 F L 66 18 118/79 96 08/29/16 10:00 08/29/16 11:55 08/29/16 11:55 08/29/16 11:55 08/29/16 11:57 Active Medications Acetaminophen (Tylenol -) 650 mg PO Q6H PRN PRN Reason: PAIN Last Admin: 08/28/16 21:29 Dose: 650 mg Acetylcysteine (Mucomyst 20 Oral / Inh Use Only*) 600 mg NEB QIDR [facility] Last Admin: 08/29/16 10:45 Dose: 600 mg Albuterol Sulfate (Ventolin 0.083% Nebulizer Soln -) 1 amp NEB QIDR [facility] Last Admin: 08/29/16 10:45 Dose: 1 amp Atorvastatin Calcium (Lipitor -) 20 mg PO [facility] Last Admin: 08/28/16 21:28 Dose: 20 mg Bupropion HCl (Wellbutrin Xl -) 150 mg PO DAILY [facility] Last Admin: 08/29/16 11:02 Dose: 150 mg Docusate Sodium (Colace -) 100 mg PO BID [facility] Last Admin: 08/29/16 11:05 Dose: 100 mg Duloxetine HCl (Cymbalta -) 60 mg PO DAILY [facility] Last Admin: 08/29/16 11:05 Dose: 60 mg Epoetin Keith (Procrit -) 10,000 unit IVPUSH MoWeFr@10 [facility] Ferrous Sulfate (Feosol -) 325 mg PO BID [facility] Last Admin: 08/28/16 21:29 Dose: 325 mg Guaifenesin (Mucinex -) 600 mg PO BID PRN Heparin Sodium (Porcine) (Heparin -) 1,000 unit IVPUSH PRN PRN PRN Reason: Heparin Heparin Sodium (Porcine) (Heparin -) 5,000 unit IVPUSH PRN PRN PRN Reason: Heparin Heparin Sodium (Porcine) 25, (000 unit/ Sodium Chloride) 500 mls @ 20 mls/hr IV TITR [facility]; 1,000 UNIT/HR PRN Reason: Protocol Last Titration: 08/28/16 21:00 Dose: 950 unit/hr Ertapenem 1 gm/ Sodium (Chloride) 50 mls @ 100 mls/hr IVPB DAILY [facility] PRN Reason: Protocol Insulin Aspart (Novolog Vial Sliding Scale -) 1 vial SQ ACHS [facility] PRN Reason: Protocol Last Admin: 08/29/16 06:23 Dose: Not Given Metoprolol Tartrate (Lopressor -) 25 mg PO BID [facility] Last Admin: 08/29/16 11:01 Dose: 25 mg Nystatin (Nystop Powder -) 1 applic TP DAILY [facility] Pantoprazole Sodium (Protonix -) 40 mg PO BID [facility] Last Admin: 08/28/16 21:28 Dose: 40 mg Polyethylene Glycol (Miralax (For Daily Use) -) 17 gm PO DAILY [facility] Prednisone (Deltasone -) 30 mg PO DAILY [facility] Last Admin: 08/29/16 11:02 Dose: 30 mg Senna (Senna -) 2 tab PO DAILY PRN PRN Reason: CONSTIPATION Sodium Chloride ([place] Nasal [place] -) 2 spray NS Q12H PRN PRN Reason: NASAL CONGESTION Tamsulosin HCl (Flomax -) 0.4 mg PO DAILY@0830 [facility] Last Admin: 08/29/16 11:02 Dose: 0.4 mg GENERAL: Awake, alert, on NIPPV HEENT: (-) icterus, dry membranes LUNGS: Scattered bilateral ronchi & bibasilar crackles noted. No wheezes. HEART: S1 and S2, (+) ESM ABDOMEN: Soft, obese, NT, ND, no guarding, no rebound, no masses. No hepatomegaly or splenomegaly. EXTREMITIES: 2+ pulses, (+) Edema NEUROLOGICAL: Non-focal SKIN: Bilateral lower ext with skin discoloration with dark yellow patches and venous stasis. No signs of fluid overload. Laboratory Results - last 24 hr 08/26/16 08/28/16 08/28/16 08:10 05:35 13:02 WBC RBC Hgb Hct MCV MCHC RDW Plt Count MPV Neutrophils % 91.0 H Lymphocytes % 4.0 L D Monocytes % 4.0 Metamyelocytes 1 Nucleated RBCs 1 H Differential Comment Manual diff done Platelet Estimate Adequate Basophilic Stippling 4+ Anisocytosis 1+ PTT (Actin FS) Puncture Site ABG pH ABG pCO2 at Pt Temp ABG pO2 at Pt Temp ABG HCO3 ABG O2 Sat (Measured) ABG O2 Content ABG Base Excess Issac Test O2 Delivery Device Oxygen Flow Rate Vent Mode Vent Rate Mechanical Rate Pressure Support Vent Sodium Potassium Chloride Carbon Dioxide Anion Gap BUN Creatinine Creat Clearance w eGFR POC Glucometer 124 Random Glucose Calcium Total Bilirubin AST ALT Alkaline Phosphatase Prot Electrophoresis Serum Total Protein 5.2 L Total Protein Albumin 2.5 L Globulin 2.7 Albumin/Globulin Ratio 0.9 Ejuiy-4-Tkcfobnrk 0.4 Fgdqv-3-Egsvddxzg 1.2 H Beta Globulins 0.7 Gamma Globulins 0.4 SADAF M-Mendez 0.2 H Tiss Transglutamin IgG < 2 Tiss Transglutamin IgA < 2 08/28/16 08/28/16 08/28/16 15:05 16:58 17:30 WBC RBC Hgb Hct MCV MCHC RDW Plt Count MPV Neutrophils % Lymphocytes % Monocytes % Metamyelocytes Nucleated RBCs Differential Comment Platelet Estimate Basophilic Stippling Anisocytosis PTT (Actin FS) 85.5 H Puncture Site Right radial ABG pH 7.37 ABG pCO2 at Pt Temp 60.0 H ABG pO2 at Pt Temp 72.1 D ABG HCO3 33.8 H ABG O2 Sat (Measured) 93.7 ABG O2 Content 12.0 L ABG Base Excess 7.7 H Issac Test Positive O2 Delivery Device Bipap Oxygen Flow Rate 80% Vent Mode Ipap 18 Vent Rate 18 Mechanical Rate Pressure Support Vent Epap 8 Sodium Potassium Chloride Carbon Dioxide Anion Gap BUN Creatinine Creat Clearance w eGFR POC Glucometer [phone] Random Glucose Calcium Total Bilirubin AST ALT Alkaline Phosphatase Prot Electrophoresis Serum Total Protein Total Protein Albumin Globulin Albumin/Globulin Ratio Kuahx-9-Rwmbspgni Olcse-5-Rcvrldmcq Beta Globulins Gamma Globulins SADAF M-Mendez Tiss Transglutamin IgG Tiss Transglutamin IgA 0508/29/16 08/29/16 22:10 05:20 05:20 WBC 13.9 H D RBC 2.96 L Hgb 8.4 L Hct 26.5 L MCV 89.6 MCHC 31.9 L RDW 16.6 H Plt Count 299 D MPV 7.3 L Neutrophils % Lymphocytes % Monocytes % Metamyelocytes Nucleated RBCs Differential Comment Platelet Estimate Basophilic Stippling Anisocytosis PTT (Actin FS) 124.5 H D Puncture Site ABG pH ABG pCO2 at Pt Temp ABG pO2 at Pt Temp ABG HCO3 ABG O2 Sat (Measured) ABG O2 Content ABG Base Excess Issac Test O2 Delivery Device Oxygen Flow Rate Vent Mode Vent Rate Mechanical Rate Pressure Support Vent Sodium Potassium Chloride Carbon Dioxide Anion Gap BUN Creatinine Creat Clearance w eGFR POC Glucometer [phone] Random Glucose Calcium Total Bilirubin AST ALT Alkaline Phosphatase Prot Electrophoresis Serum Total Protein Total Protein Albumin Globulin Albumin/Globulin Ratio Wqzul-3-Omssbmbad Ybfya-5-Ytymebebb Beta Globulins Gamma Globulins SADAF M-Mendez Tiss Transglutamin IgG Tiss Transglutamin IgA 08/29/16 08/29/16 08/29/16 05:20 05:56 09:32 WBC RBC Hgb Hct MCV MCHC RDW Plt Count MPV Neutrophils % Lymphocytes % Monocytes % Metamyelocytes Nucleated RBCs Differential Comment Platelet Estimate Basophilic Stippling Anisocytosis PTT (Actin FS) Puncture Site Right radial ABG pH 7.29 L ABG pCO2 at Pt Temp 77.3 H* D ABG pO2 at Pt Temp 71.3 ABG HCO3 35.8 H ABG O2 Sat (Measured) 92.4 ABG O2 Content 10.1 L ABG Base Excess 8.3 H Issac Test Positive O2 Delivery Device Bipap Oxygen Flow Rate 80 Vent Mode Ipap 18 Vent Rate 18 Mechanical Rate Pressure Support Vent Epap 8 Sodium 151 H Potassium 4.2 Chloride 106 Carbon Dioxide 34 H Anion Gap 10 BUN 107 H* Creatinine 2.4 H Creat Clearance w eGFR 26.67 POC Glucometer [phone] Random Glucose 92 Calcium 8.2 L Total Bilirubin 0.4 D AST 21 D ALT 11 L D Alkaline Phosphatase 65 Prot Electrophoresis Serum Total Protein Total Protein 5.5 L Albumin 2.7 L Globulin Albumin/Globulin Ratio Coizh-4-Bctsuzvcn Rpqoz-8-Xamkfaxxh Beta Globulins Gamma Globulins SADAF M-Mendez Tiss Transglutamin IgG Tiss Transglutamin IgA 05/23/17 11:42 WBC RBC Hgb Hct MCV MCHC RDW Plt Count MPV Neutrophils % Lymphocytes % Monocytes % Metamyelocytes Nucleated RBCs Differential Comment Platelet Estimate Basophilic Stippling Anisocytosis PTT (Actin FS) Puncture Site Right radial ABG pH 7.35 ABG pCO2 at Pt Temp 65.3 H* ABG pO2 at Pt Temp 81.5 ABG HCO3 35.4 H ABG O2 Sat (Measured) 96.5 ABG O2 Content 10.8 L ABG Base Excess 9.0 H Issac Test Positive O2 Delivery Device Bipap Oxygen Flow Rate 80% Vent Mode S/t Vent Rate 26 Mechanical Rate Y Pressure Support Vent 18/8 Sodium Potassium Chloride Carbon Dioxide Anion Gap BUN Creatinine Creat Clearance w eGFR POC Glucometer Random Glucose Calcium Total Bilirubin AST ALT Alkaline Phosphatase Prot Electrophoresis Serum Total Protein Total Protein Albumin Globulin Albumin/Globulin Ratio Wgtvj-7-Gvbzvqgne Tqjzu-5-Qydhuccwn Beta Globulins Gamma Globulins SADAF M-Mendez Tiss Transglutamin IgG Tiss Transglutamin IgA ASSESSMENT/PLAN: Acute on chronic Respiratory Failure HTN HLD CAD S/P PCI Diastolic CHF AFIB COPD DVT / PE NIPPV was adjusted an repeat ABG has shown improvement Diuresis as tolerated Aspiration precautions Prednisone Will need re-evaluation for benefit from thoracentesis ABX BD TX Normal transfusion thresholds Glycemic control Patient and his are in agreement for intubation if required Dr Vasquez Critical care time spent in reviewing chart, evaluating patient and formulating plan 35 min
[2016-08-29] MEDS: POLYETHYLENE GLYCOL 3350 119 GM BTL PO SCH (13:38)
[2016-08-29] MEDS: HEPARIN - 25,000 UNIT in SODIUM CHLORIDE 495 ML IV SCH (14:30)
--- NOTE | 2016-08-29 17:37 | PN ---
Progress Note (short form) - Note Progress Note: Renal Follow up for KARLOS/CKD Pt seen and examined in the ICU transferred to the ICU for hypoxia On BIPAP asking for water no sob or chest pain Vital Signs Temperature 97 F L 08/29/16 17:32 Pulse Rate 71 08/29/16 17:32 Respiratory Rate 27 H 08/29/16 17:32 Blood Pressure 117/55 08/29/16 17:32 O2 Sat by Pulse Oximetry (%) 92 L 08/29/16 14:52 Intake & Output 08/26/16 08/27/16 08/28/16 08/29/16 23:59 23:59 23:59 23:59 Intake Total 350 494 594 634 Output Total 1220 1000 1500 1150 Balance -870 -506 -906 -516 Weight 206 lb 2.115 oz 205 lb 4 oz Gen: NAD on BIPAP CVS: RRR, No M/R Lungs: Course BS, no wheeze, no rales Abd: soft, obese, NT/ND Ext: Trace LE edema, no cyanosis or clubbing CBC, BMP 08/29/16 05:20 08/29/16 05:20 Current Medications Acetaminophen (Tylenol -) 650 mg PO Q6H PRN PRN Reason: PAIN Last Admin: 08/28/16 21:29 Dose: 650 mg Acetylcysteine (Mucomyst 20 Oral / Inh Use Only*) 600 mg NEB QIDR [facility] Last Admin: 08/29/16 10:45 Dose: 600 mg Albuterol Sulfate (Ventolin 0.083% Nebulizer Soln -) 1 amp NEB QIDR [facility] Last Admin: 08/29/16 10:45 Dose: 1 amp Atorvastatin Calcium (Lipitor -) 20 mg PO [facility] Last Admin: 08/28/16 21:28 Dose: 20 mg Bupropion HCl (Wellbutrin Xl -) 150 mg PO DAILY [facility] Last Admin: 08/29/16 11:02 Dose: 150 mg Docusate Sodium (Colace -) 100 mg PO BID [facility] Last Admin: 08/29/16 11:05 Dose: 100 mg Duloxetine HCl (Cymbalta -) 60 mg PO DAILY [facility] Last Admin: 08/29/16 11:05 Dose: 60 mg Epoetin Keith (Procrit -) 10,000 unit IVPUSH MoWeFr@10 [facility] Ferrous Sulfate (Feosol -) 325 mg PO BID [facility] Last Admin: 08/29/16 12:00 Dose: 325 mg Guaifenesin (Mucinex -) 600 mg PO BID PRN Heparin Sodium (Porcine) (Heparin -) 1,000 unit IVPUSH PRN PRN PRN Reason: Heparin Heparin Sodium (Porcine) (Heparin -) 5,000 unit IVPUSH PRN PRN PRN Reason: Heparin Heparin Sodium (Porcine) 25, (000 unit/ Sodium Chloride) 500 mls @ 20 mls/hr IV TITR [facility]ESLEE; 1,000 UNIT/HR PRN Reason: Protocol Last Titration: 08/29/16 10:30 Dose: 0 unit/hr Ertapenem 1 gm/ Sodium (Chloride) 50 mls @ 100 mls/hr IVPB DAILY [facility] PRN Reason: Protocol Insulin Aspart (Novolog Vial Sliding Scale -) 1 vial SQ ACHS [facility] PRN Reason: Protocol Last Admin: 08/29/16 12:30 Dose: Not Given Metoprolol Tartrate (Lopressor -) 25 mg PO BID [facility] Last Admin: 08/29/16 11:01 Dose: 25 mg Nystatin (Nystop Powder -) 1 applic TP DAILY [facility] Pantoprazole Sodium (Protonix -) 40 mg PO BID [facility] Last Admin: 08/29/16 11:05 Dose: 40 mg Polyethylene Glycol (Miralax (For Daily Use) -) 17 gm PO DAILY [facility] Last Admin: 08/29/16 13:38 Dose: Not Given Prednisone (Deltasone -) 30 mg PO DAILY [facility] Last Admin: 08/29/16 11:02 Dose: 30 mg Senna (Senna -) 2 tab PO DAILY PRN PRN Reason: CONSTIPATION Sodium Chloride ([place] Nasal [place] -) 2 spray NS Q12H PRN PRN Reason: NASAL CONGESTION Tamsulosin HCl (Flomax -) 0.4 mg PO DAILY@0830 [facility] Last Admin: 08/29/16 11:02 Dose: 0.4 mg A/P 75 year old Gentleman with PMhx of CKD (Hx of KARLOS requiring dialysis), Hypertension, COPD on O2, BPH, Gout, CAD, Diastolic CHF who presented from Rehab with acute Resp Failure and found to have KARLOS on CKD. #Acute on Chronic Renal Failure Renal function improving off standing diuretics BUN high due to steroids and intravascular volume depletion trend BUN/Cr PRN Lasix for hypoaxia/effusions #Hypernatremia due to diuretics + poor oral free water intake take free water as needed trend na will hold off starting standing IVF for now Thank you Will follow Melvin Johnson DO
[2016-08-29] MEDS: NYSTATIN POWDER 100,000 UNITS/GM - 15 GM TOPICAL POWDER TP SCH (18:38)
[2016-08-29] MEDS: ATORVASTATIN CA 20 MG TABLET (FP) PO SCH (21:07)
[2016-08-29] MEDS ORDERED: morphine CARPU-JECT 2 MG/1 ML DISP.SYRIN ONE (23:00)
[2016-08-29] MEDS: morphine CARPU-JECT 2 MG/1 ML DISP.SYRIN IVPUSH PRN (23:15)
[2016-08-30] MEDS: ALBUTEROL SO4 0.083% IH SOL 2.5 MG/3 ML VIAL.NEB. NEB SCH ×4 (00:10→17:34)
[2016-08-30] MEDS: ACETYLCYSTEINE 20% 200MG/ML 4 ML VIAL *FOR ORAL / INH USE ONLY NEB SCH ×4 (00:10→17:35)
[2016-08-30 05:47] LABS: MCH 28.1 pg (25.7-33.7); MCHC 30.9 g/dl (32.0-35.9); MEAN PLT VOLUME 7.6 fl (7.5-11.1); PLATELET COUNT 269 K/MM3 (134-434); RDW 17.3 % (11.9-15.9); WHITE BLOOD COUNT 15.4 K/mm3 (4.0-10.0)
[2016-08-30] MEDS: INSULIN SLIDING SCALE (NOVOLOG) 1 VIAL SQ SCH ×4 (06:19→21:25)
[2016-08-30 06:45] LABS: ALBUMIN 2.5 g/dl (3.4-5.0); BILIRUBIN,TOTAL 0.4 mg/dL (0.2-1.0); CALCIUM 7.9 mg/dL (8.5-10.1); COCKROFT - GAULT 35.54; CREATININE 2.4 mg/dL (0.7-1.3); TOT PROT 5.4 g/dl (6.4-8.2)
--- NOTE | 2016-08-30 08:49 | PN ---
Physical Exam: SUBJECTIVE: Patient seen and examined at bedside this AM. AAO and resting comfortably in bed. Saturated well overnight on 100% FiO2. Afebrile with stable BP. Understands need for pig tail insertion/possible chest tube. will be here later on today for formal consent. OBJECTIVE: Vital Signs Period Temp Pulse Resp BP Sys/[place] Pulse Ox Last 24 Hr 97 F-97.8 F 60-80 16-27 104-143/47-81 92-96 GENERAL: Awake, alert, and fully oriented, in no acute distress. HEENT: Atraumatic, EOMI, PERRLA, No lymphadenopathy noted, dry membranes LUNGS: Breath sounds diminished on right middle & lower lung; scattered ronchi & bibasilar crackles noted. No wheezes or accessory muscle use noted. HEART: Regular rate and rhythm, normal S1 and S2 with systolic murmur, rub or gallop. ABDOMEN: Soft, obese, nontender, not distended, normoactive bowel sounds, no guarding, no rebound, no masses. No hepatomegaly or splenomegaly. EXTREMITIES: 2+ pulses, warm, well-perfused. No calf tenderness. No peripheral edema. NEUROLOGICAL: Cranial nerves II-XII intact. Normal speech. Gait deferred. PSYCHIATRIC: Cooperative. Good eye contact. Anxious at times during interview. SKIN: Bilateral lower ext with skin discoloration with dark yellow patches and venous stasis. No signs of fluid overload. Laboratory Results - last 24 hr 08/26/16 08/29/16 08/29/16 12:40 05:20 05:56 WBC RBC Hgb Hct MCV MCHC RDW Plt Count MPV PTT (Actin FS) Puncture Site ABG pH ABG pCO2 at Pt Temp ABG pO2 at Pt Temp ABG HCO3 ABG O2 Sat (Measured) ABG O2 Content ABG Base Excess Issac Test O2 Delivery Device Oxygen Flow Rate Vent Mode Vent Rate Mechanical Rate Pressure Support Vent Sodium 151 H Potassium 4.2 Chloride 106 Carbon Dioxide 34 H Anion Gap 10 BUN 107 H* Creatinine 2.4 H Creat Clearance w eGFR 26.67 POC Glucometer 125.27030 Random Glucose 92 Calcium 8.2 L Total Bilirubin 0.4 D AST 21 D ALT 11 L D Alkaline Phosphatase 65 Total Protein 5.5 L Albumin 2.7 L Blood Type A POSITIVE Antibody Screen Negative Crossmatch See Detail 08/29/16 08/29/1617 09:32 11:42 12:44 WBC RBC Hgb Hct MCV MCHC RDW Plt Count MPV PTT (Actin FS) Puncture Site Right radial Right radial ABG pH 7.29 L 7.35 ABG pCO2 at Pt Temp 77.3 H* D 65.3 H* ABG pO2 at Pt Temp 71.3 81.5 ABG HCO3 35.8 H 35.4 H ABG O2 Sat (Measured) 92.4 96.5 ABG O2 Content 10.1 L 10.8 L ABG Base Excess 8.3 H 9.0 H Issac Test Positive Positive O2 Delivery Device Bipap Bipap Oxygen Flow Rate 80 80% Vent Mode Ipap 18 S/t Vent Rate 18 26 Mechanical Rate Y Pressure Support Vent Epap 8 18/8 Sodium Potassium Chloride Carbon Dioxide Anion Gap BUN Creatinine Creat Clearance w eGFR POC Glucometer 115.34200 Random Glucose Calcium Total Bilirubin AST ALT Alkaline Phosphatase Total Protein Albumin Blood Type Antibody Screen Crossmatch 08/29/16 08/29/16 08/29/16 12:55 18:08 19:30 WBC RBC Hgb Hct MCV MCHC RDW Plt Count MPV PTT (Actin FS) 36.7 H D 63.5 H D Puncture Site ABG pH ABG pCO2 at Pt Temp ABG pO2 at Pt Temp ABG HCO3 ABG O2 Sat (Measured) ABG O2 Content ABG Base Excess Issac Test O2 Delivery Device Oxygen Flow Rate Vent Mode Vent Rate Mechanical Rate Pressure Support Vent Sodium Potassium Chloride Carbon Dioxide Anion Gap BUN Creatinine Creat Clearance w eGFR POC Glucometer 137.78692 Random Glucose Calcium Total Bilirubin AST ALT Alkaline Phosphatase Total Protein Albumin Blood Type Antibody Screen Crossmatch 08/29/16 08/30/16 08/30/16 20:50 05:05 05:05 WBC 15.4 H RBC 2.84 L Hgb 8.0 L Hct 25.9 L MCV 91.0 MCHC 30.9 L RDW 17.3 H Plt Count 269 MPV 7.6 PTT (Actin FS) 71.4 H Puncture Site ABG pH ABG pCO2 at Pt Temp ABG pO2 at Pt Temp ABG HCO3 ABG O2 Sat (Measured) ABG O2 Content ABG Base Excess Issac Test O2 Delivery Device Oxygen Flow Rate Vent Mode Vent Rate Mechanical Rate Pressure Support Vent Sodium Potassium Chloride Carbon Dioxide Anion Gap BUN Creatinine Creat Clearance w eGFR POC Glucometer 142.95126 Random Glucose Calcium Total Bilirubin AST ALT Alkaline Phosphatase Total Protein Albumin Blood Type Antibody Screen Crossmatch 08/30/16 08/30/16 05:05 05:24 WBC RBC Hgb Hct MCV MCHC RDW Plt Count MPV PTT (Actin FS) Puncture Site ABG pH ABG pCO2 at Pt Temp ABG pO2 at Pt Temp ABG HCO3 ABG O2 Sat (Measured) ABG O2 Content ABG Base Excess Issac Test O2 Delivery Device Oxygen Flow Rate Vent Mode Vent Rate Mechanical Rate Pressure Support Vent Sodium 154 H Potassium 4.2 Chloride 108 H Carbon Dioxide 38 H Anion Gap 8 BUN 97 H Creatinine 2.4 H Creat Clearance w eGFR 26.67 POC Glucometer 98.68481 Random Glucose 78 Calcium 7.9 L Total Bilirubin 0.4 AST 14 L D ALT 10 L Alkaline Phosphatase 66 Total Protein 5.4 L Albumin 2.5 L Blood Type Antibody Screen Crossmatch Active Medications Generic Name Dose Route Start Last Admin Trade Name Freq PRN Reason Stop Dose Admin Acetaminophen 650 mg 08/28/16 14:22 08/28/16 21:29 Tylenol - PO 650 mg Q6H PRN Administration PAIN Acetylcysteine 600 mg 08/28/16 18:00 08/30/16 06:15 Mucomyst 20 Oral / Inh Use Only* NEB 600 mg QIDR [facility]E Administration Albuterol Sulfate 1 amp 08/28/16 18:00 08/30/16 06:15 Ventolin 0.083% Nebulizer Soln - NEB 1 amp QIDR [facility] Administration Atorvastatin Calcium 20 mg 08/28/16 22:00 08/29/16 21:07 Lipitor - PO 20 mg HS [facility]E Administration Bupropion HCl 150 mg 08/29/16 10:00 08/29/16 11:02 Wellbutrin Xl - PO 150 mg DAILY [facility] Administration Docusate Sodium 100 mg 08/28/16 22:00 08/29/16 21:07 Colace - PO 100 mg BID [facility] Administration Duloxetine HCl 60 mg 08/29/16 10:00 08/29/16 11:05 Cymbalta - PO 60 mg DAILY [facility] Administration Epoetin Keith 10,000 unit 08/30/16 10:00 Procrit - IVPUSH MoWeFr@10 [facility] Ferrous Sulfate 325 mg 08/28/16 22:00 08/29/16 21:07 Feosol - PO 325 mg BID [facility] Administration Guaifenesin 600 mg 08/28/16 14:22 Mucinex - PO BID PRN Heparin Sodium (Porcine) 1,000 unit 08/28/16 14:22 Heparin - IVPUSH PRN PRN Heparin Heparin Sodium (Porcine) 5,000 unit 08/28/16 14:22 Heparin - IVPUSH PRN PRN Heparin Heparin Sodium (Porcine) 25, 500 mls @ 20 mls/hr 08/28/16 14:22 08/29/16 14:30 000 unit/ Sodium Chloride IV 16 mls/hr TITR [facility]E Administration Protocol 1,000 UNIT/HR Ertapenem 1 gm/ Sodium 50 mls @ 100 mls/hr 08/30/16 10:00 Chloride IVPB DAILY [facility] Protocol Insulin Aspart 1 vial 08/28/16 16:30 08/30/16 06:19 Novolog Vial Sliding Scale - SQ Not Given ACHS [facility] Protocol Metoprolol Tartrate 25 mg 08/28/16 22:00 08/29/16 21:07 Lopressor - PO 25 mg BID [facility] Administration Morphine Sulfate 2 mg 08/29/16 23:05 08/29/16 23:15 Morphine Injection - IVPUSH 2 mg Q4H PRN Administration PAIN Nystatin 1 applic 08/29/16 10:00 08/29/16 18:38 Nystop Powder - TP 1 applic DAILY [facility] Administration Pantoprazole Sodium 40 mg 08/28/16 22:00 08/29/16 21:07 Protonix - PO 40 mg BID [facility] Administration Polyethylene Glycol 17 gm 08/29/16 10:00 08/29/16 13:38 Miralax (For Daily Use) - PO Not Given DAILY [facility] Prednisone 30 mg 08/29/16 10:00 08/29/16 11:02 Deltasone - PO 30 mg DAILY [facility] Administration Senna 2 tab 08/28/16 14:22 Senna - PO DAILY PRN CONSTIPATION Sodium Chloride 2 spray 08/28/16 14:22 [place] - NS Q12H PRN NASAL CONGESTION Tamsulosin HCl 0.4 mg 08/29/16 08:30 08/29/16 11:02 Flomax - PO 0.4 mg DAILY@0830 [facility] Administration ASSESSMENT/PLAN: 75 year old male with PMH of HTN, HLD, CAD s/p stents x2 in 2014, diastolic CHF , AFIB, COPD, DVT and PE presented to ED last night from [place] for SOB & poor PO intake since being discharged from [facility] on 08/21/2016 for similar presentation. Found to be in ARF with right pleural effusion (larger than on discharge). #Acute Respiratory Failure, multifactorial etiology (aspiration pneumonia, superimposed on COPD exacerbation &chronic diastolic CHF) -saturating well on BiPAP but desaturates to <75% on NC or NRB -Ertapenem for aspiration pneumonia -Prednisone 30mg PO DAILY -Mucomyst/Ventolin treatments -holding Eliquis PO, Aspirin PO for pigtail catheter insertion by IR -CXR reviewed, bilateral pleural effusions noted (essentially unchanged from yesterday) -IR Consult appreciated -ID Consult appreciated #Anemia, (+) stool guiac -H/H stable since 1unit PRBC given on 08/26 -EPO, Feosol being given as well -patient refused GI workup (colonoscopy/endoscopy) -will continue to monitor H/H for any signs of bleeding -GI Consult appreciated #KARLOS, improving (likely d/t poor PO intake & periods of relative hypotension during hospital stay) -will monitor & trend kidney function -avoid nephrotoxic meds -hx of urinary retention with chronic lilly catheter -continue home meds: Flomax 0.4mg PO DAILY -nephrology consult appreciated #HTN/HTL/A-Fib history -currently on: Lopressor 25mg PO BID, Lipitor 20mg PO HS -plan is to restart Aspirin & Eliquis after undergoing thoracentesis (first need to discuss benefits & risks of full AC in setting of recurrent GI Bleeds with patient) #Constipation -continue regimen: Colace, Miralax, Senna #Anxiety Hx -continue home meds: Wellbutrin 150mg PO DAILY, Cymbalta 60mg PO DAILY #DM -ISS -BGM Prophylaxis/FEN -Heparin -PPI -no IVF needed at present -monitor electrolytes -NPO for now (on bipap) Dispo: Palliative care consulted. Patient stated he would consent to intubation if needed when his was at bedside. Once she left, he stated he did not want to be intubated. Need to develop more concrete plan with present later today. Accepted for LTAC. Visit type - Emergency Visit Emergency Visit: Yes ED Registration Date: 08/23/16 Care time: The patient presented to the Emergency Department on the above date and was hospitalized for further evaluation of their emergent condition. - New Patient This patient is new to me today: No - Critical Care Critical Care patient: Yes Total Critical Care Time (in minutes): 48 Critical Care Statement: The care of this patient involved high complexity decision making to prevent further life threatening deterioration of the patient 's condition and/or to evalute & treat vital organ system(s) failure or risk of failure.
--- NOTE | 2016-08-30 09:03 | PN ---
Progress Note, Physician Chief Complaint: Thoracentesis could not be performed because he could not be maintained off BiPap TELE: Reviewed, NSR. Occasional APCs - Current Medication List Current Medications: Active Medications Acetaminophen (Tylenol -) 650 mg PO Q6H PRN PRN Reason: PAIN Last Admin: 08/28/16 21:29 Dose: 650 mg Acetylcysteine (Mucomyst 20 Oral / Inh Use Only*) 600 mg NEB QIDR [facility] Last Admin: 08/30/16 06:15 Dose: 600 mg Albuterol Sulfate (Ventolin 0.083% Nebulizer Soln -) 1 amp NEB QIDR [facility] Last Admin: 08/30/16 06:15 Dose: 1 amp Atorvastatin Calcium (Lipitor -) 20 mg PO HS [facility] Last Admin: 08/29/16 21:07 Dose: 20 mg Bupropion HCl (Wellbutrin Xl -) 150 mg PO DAILY [facility] Last Admin: 08/29/16 11:02 Dose: 150 mg Docusate Sodium (Colace -) 100 mg PO BID [facility] Last Admin: 08/29/16 21:07 Dose: 100 mg Duloxetine HCl (Cymbalta -) 60 mg PO DAILY [facility] Last Admin: 08/29/16 11:05 Dose: 60 mg Epoetin Keith (Procrit -) 10,000 unit IVPUSH MoWeFr@10 [facility] Ferrous Sulfate (Feosol -) 325 mg PO BID [facility] Last Admin: 08/29/16 21:07 Dose: 325 mg Guaifenesin (Mucinex -) 600 mg PO BID PRN Heparin Sodium (Porcine) (Heparin -) 1,000 unit IVPUSH PRN PRN PRN Reason: Heparin Heparin Sodium (Porcine) (Heparin -) 5,000 unit IVPUSH PRN PRN PRN Reason: Heparin Heparin Sodium (Porcine) 25, (000 unit/ Sodium Chloride) 500 mls @ 20 mls/hr IV TITR LESLEE; 1,000 UNIT/HR PRN Reason: Protocol Last Admin: 08/29/16 14:30 Dose: 16 mls/hr Ertapenem 1 gm/ Sodium (Chloride) 50 mls @ 100 mls/hr IVPB DAILY [facility] PRN Reason: Protocol Insulin Aspart (Novolog Vial Sliding Scale -) 1 vial SQ ACHS [facility] PRN Reason: Protocol Last Admin: 08/30/16 06:19 Dose: Not Given Metoprolol Tartrate (Lopressor -) 25 mg PO BID [facility] Last Admin: 08/29/16 21:07 Dose: 25 mg Morphine Sulfate (Morphine Injection -) 2 mg IVPUSH Q4H PRN PRN Reason: PAIN Last Admin: 08/29/16 23:15 Dose: 2 mg Nystatin (Nystop Powder -) 1 applic TP DAILY [facility] Last Admin: 08/29/16 18:38 Dose: 1 applic Pantoprazole Sodium (Protonix -) 40 mg PO BID [facility] Last Admin: 08/29/16 21:07 Dose: 40 mg Polyethylene Glycol (Miralax (For Daily Use) -) 17 gm PO DAILY [facility] Last Admin: 08/29/16 13:38 Dose: Not Given Prednisone (Deltasone -) 30 mg PO DAILY [facility] Last Admin: 08/29/16 11:02 Dose: 30 mg Senna (Senna -) 2 tab PO DAILY PRN PRN Reason: CONSTIPATION Sodium Chloride ([place] Nasal [place] -) 2 spray NS Q12H PRN PRN Reason: NASAL CONGESTION Tamsulosin HCl (Flomax -) 0.4 mg PO DAILY@0830 [facility] Last Admin: 08/29/16 11:02 Dose: 0.4 mg - Objective Vital Signs: Vital Signs Temperature 97.6 F 08/30/16 06:00 Pulse Rate 77 08/30/16 08:00 Respiratory Rate 20 08/30/16 08:00 Blood Pressure 132/58 08/30/16 08:00 O2 Sat by Pulse Oximetry (%) 95 08/29/16 21:30 Eyes: Yes: Conjunctiva Clear Cardiovascular: Yes: Regular Rate and Rhythm Respiratory: Yes: Other (no wheezing; decreased basilar breath sounds) Gastrointestinal: Yes: Soft (non-tender), Abdomen, Obese Edema: Yes Edema: LLE: 1+, RLE: 1+ Neurological: Yes: Alert Labs: CBC, BMP 08/30/16 05:05 08/30/16 05:05 INR, PTT INR 1.22 (0.82-1.09) H 08/27/16 06:00 Laboratory Tests 08/26/16 08/30/16 08/30/16 23:25 05:05 05:05 WBC 15.4 H Hgb 8.0 L Plt Count 269 PTT (Actin FS) 71.4 H Sodium Potassium BUN Creatinine Stool Occult Blood Positive 08/30/16 05:05 WBC Hgb Plt Count PTT (Actin FS) Sodium 154 H Potassium 4.2 BUN 97 H Creatinine 2.4 H Stool Occult Blood - ....Imaging EKG: Image Reviewed Assessment/Plan IMP: Acute on chronic exacerbation COPD, Right lower lobe PNA Acute on chronic renal failure, suspected ATN from periods of relative hypotension Anemia CAD s/p PCI History of DVT REC: 1. PNA: -superimposed on chronic COPD, chronic diastolic CHF -BiPAP -Abx as per ID, possible new aspiration event -Eliquis held, now on heparin gtts for possible chest tube; thoracentesis could not be performed as he was unable to tolerate being off BiPap 2. ARF: -As per renal -Avoid nephrotoxins (no PIPER/ARB) -Avoid hypotension, hold parameters placed on amlodipine 3. Anemia: -guaiac + -Follow H/H -Transfuse if Hb < 7 -Will need to determine need for terminal makeup operator AC (was on Eliquis for prior DVT) 4. CAD s/p PCI: -ASA on hold due to anemia and guaiac + stool, possible chest tube -Resume when feasible post procedure.
[2016-08-30] MEDS ORDERED: PT OWN MED DRAWER 7, Y5N ONE (09:42)
[2016-08-30] MEDS: ERTAPENEM SODIUM 1 GM in SODIUM CHLORIDE 50 ML IVPB SCH (10:21)
[2016-08-30] MEDS: EPOETIN ALFA 10,000 UNIT/1 ML VIAL IVPUSH SCH (10:21)
[2016-08-30] MEDS: NYSTATIN POWDER 100,000 UNITS/GM - 15 GM TOPICAL POWDER TP SCH (11:00)
[2016-08-30] MEDS: DEXTROSE 5%-WATER - 1,000 ML IV SCH ×2 (11:59→23:50)
--- NOTE | 2016-08-30 12:10 | PN ---
Teaching Attending Note Name of Resident: Alan Glover ATTENDING PHYSICIAN STATEMENT I saw and evaluated the patient. I reviewed the resident's note and discussed the case with the resident. I agree with the resident's findings and plan as documented. SUBJECTIVE: Pt seen and examined in the ICU. Remains dependent on BiPAP with 100% FiO2, unable to come off due to desaturations. OBJECTIVE: Last Vital Signs Temp Pulse Resp BP Pulse Ox 98.3 F 80 20 121/70 92 L 08/30/16 10:00 08/30/16 10:00 08/30/16 10:00 08/30/16 10:00 08/30/16 09:58 Intake & Output 08/27/16 08/28/16 08/29/16 08/30/16 23:59 23:59 23:59 23:59 Intake Total 494 594 734 242 Output Total 1000 1500 1550 400 Balance -506 -906 -816 -158 Weight 206 lb 2.115 oz 205 lb 4 oz 202 lb 2 oz Gen: tachypneic on biPAP Heart: RRR Lung: scattered rhonchi, distant breath sounds Abd: soft, nontender Ext: + edema CBC, BMP 08/30/16 05:05 08/30/16 05:05 Active Medications Acetaminophen (Tylenol -) 650 mg PO Q6H PRN PRN Reason: PAIN Last Admin: 08/28/16 21:29 Dose: 650 mg Acetylcysteine (Mucomyst 20 Oral / Inh Use Only*) 600 mg NEB QIDR [facility] Last Admin: 08/30/16 06:15 Dose: 600 mg Albuterol Sulfate (Ventolin 0.083% Nebulizer Soln -) 1 amp NEB QIDR [facility] Last Admin: 08/30/16 06:15 Dose: 1 amp Atorvastatin Calcium (Lipitor -) 20 mg PO HS [facility] Last Admin: 08/29/16 21:07 Dose: 20 mg Bupropion HCl (Wellbutrin Xl -) 150 mg PO DAILY [facility] Last Admin: 08/29/16 11:02 Dose: 150 mg Docusate Sodium (Colace -) 100 mg PO BID [facility] Last Admin: 08/29/16 21:07 Dose: 100 mg Duloxetine HCl (Cymbalta -) 60 mg PO DAILY [facility] Last Admin: 08/29/16 11:05 Dose: 60 mg Epoetin Keith (Procrit -) 10,000 unit IVPUSH MoWeFr@10 [facility] Last Admin: 08/30/16 10:21 Dose: 10,000 unit Ferrous Sulfate (Feosol -) 325 mg PO BID [facility] Last Admin: 08/29/16 21:07 Dose: 325 mg Guaifenesin (Mucinex -) 600 mg PO BID PRN Heparin Sodium (Porcine) (Heparin -) 1,000 unit IVPUSH PRN PRN PRN Reason: Heparin Heparin Sodium (Porcine) (Heparin -) 5,000 unit IVPUSH PRN PRN PRN Reason: Heparin Heparin Sodium (Porcine) 25, (000 unit/ Sodium Chloride) 500 mls @ 20 mls/hr IV TITR [facility]E; 1,000 UNIT/HR PRN Reason: Protocol Last Titration: 08/30/16 11:00 Dose: 0 unit/hr Ertapenem 1 gm/ Sodium (Chloride) 50 mls @ 100 mls/hr IVPB DAILY [facility] PRN Reason: Protocol Last Admin: 08/30/16 10:21 Dose: 100 mls/hr Dextrose (D5w -) 1,000 mls @ 83 mls/hr IV Q12H [facility] Last Admin: 08/30/16 11:59 Dose: 83 mls/hr Insulin Aspart (Novolog Vial Sliding Scale -) 1 vial SQ ACHS [facility] PRN Reason: Protocol Last Admin: 08/30/16 11:39 Dose: Not Given Metoprolol Tartrate (Lopressor -) 25 mg PO BID [facility] Last Admin: 08/29/16 21:07 Dose: 25 mg Morphine Sulfate (Morphine Injection -) 2 mg IVPUSH Q4H PRN PRN Reason: PAIN Last Admin: 08/29/16 23:15 Dose: 2 mg Nystatin (Nystop Powder -) 1 applic TP DAILY [facility] Last Admin: 08/29/16 18:38 Dose: 1 applic Pantoprazole Sodium (Protonix -) 40 mg PO BID [facility] Last Admin: 08/29/16 21:07 Dose: 40 mg Polyethylene Glycol (Miralax (For Daily Use) -) 17 gm PO DAILY [facility] Last Admin: 08/29/16 13:38 Dose: Not Given Prednisone (Deltasone -) 30 mg PO DAILY [facility] Last Admin: 08/29/16 11:02 Dose: 30 mg Senna (Senna -) 2 tab PO DAILY PRN PRN Reason: CONSTIPATION Sodium Chloride ([place] Nasal [place] -) 2 spray NS Q12H PRN PRN Reason: NASAL CONGESTION Tamsulosin HCl (Flomax -) 0.4 mg PO DAILY@0830 [facility] Last Admin: 08/29/16 11:02 Dose: 0.4 mg ASSESSMENT AND PLAN: Acute on Chronic Hypoxic Respiratory Failure Likely Aspiration Pneumonia vs Pneumonitis LV Diastolic Dysfunction Atrial Fibrillation Pleural Effusions COPD h/o DVT/PE CAD HTN Hyperlipidemia - continue antibiotics - for ultrasound guided pigtail catheter placement - titrate Fio2 to keep SpO2 >90% - prednisone - inhaled bronchodilators - resume anticoagulation post catheter placement - monitor urine output, creatinine - NPO while on BiPAP - for LTAC placement once respiratory status stabilizes - continue ICU monitoring critical care time spent in reviewing chart, evaluating patient and formulating plan 35 min
--- NOTE | 2016-08-30 12:11 | PN ---
Progress Note (short form) - Note Progress Note: Subjective: The patient was seen and examined in the ICU on Bipap, he is asking for water. Discussed with Dr. Conway, for b/l pigtail catheters placement today Current Medications Generic Name Dose Route Start Last Admin Trade Name Freq PRN Reason Stop Dose Admin Acetaminophen 650 mg 08/28/16 14:22 08/28/16 21:29 Tylenol - PO 650 mg Q6H PRN Administration PAIN Acetylcysteine 600 mg 08/28/16 18:00 08/30/16 06:15 Mucomyst 20 Oral / Inh Use Only* NEB 600 mg QIDR LESLEE Administration Albuterol Sulfate 1 amp 08/28/16 18:00 08/30/16 06:15 Ventolin 0.083% Nebulizer Soln - NEB 1 amp QIDR LESLEE Administration Atorvastatin Calcium 20 mg 08/28/16 22:00 08/29/16 21:07 Lipitor - PO 20 mg HS LESLEE Administration Bupropion HCl 150 mg 08/29/16 10:00 08/29/16 11:02 Wellbutrin Xl - PO 150 mg DAILY LESLEE Administration Docusate Sodium 100 mg 08/28/16 22:00 08/29/16 21:07 Colace - PO 100 mg BID LESLEE Administration Duloxetine HCl 60 mg 08/29/16 10:00 08/29/16 11:05 Cymbalta - PO 60 mg DAILY LESLEE Administration Epoetin Keith 10,000 unit 08/30/16 10:00 08/30/16 10:21 Procrit - IVPUSH 10,000 unit MoWeFr@10 LESLEE Administration Ferrous Sulfate 325 mg 08/28/16 22:00 08/29/16 21:07 Feosol - PO 325 mg BID LESLEE Administration Guaifenesin 600 mg 08/28/16 14:22 Mucinex - PO BID PRN Heparin Sodium (Porcine) 1,000 unit 08/28/16 14:22 Heparin - IVPUSH PRN PRN Heparin Heparin Sodium (Porcine) 5,000 unit 08/28/16 14:22 Heparin - IVPUSH PRN PRN Heparin Heparin Sodium (Porcine) 25, 500 mls @ 20 mls/hr 08/28/16 14:22 08/30/16 11:00 000 unit/ Sodium Chloride IV 0 unit/hr TITR LESLEE Titration Protocol 1,000 UNIT/HR Ertapenem 1 gm/ Sodium 50 mls @ 100 mls/hr 08/30/16 10:00 08/30/16 10:21 Chloride IVPB 100 mls/hr DAILY LESLEE Administration Protocol Dextrose 1,000 mls @ 83 mls/hr 08/30/16 11:45 08/30/16 11:59 D5w - IV 83 mls/hr Q12H LESLEE Administration Insulin Aspart 1 vial 08/28/16 16:30 08/30/16 11:39 Novolog Vial Sliding Scale - SQ Not Given ACHS LESLEE Protocol Metoprolol Tartrate 25 mg 08/28/16 22:00 08/29/16 21:07 Lopressor - PO 25 mg BID L[facility]LEE Administration Morphine Sulfate 2 mg 08/29/16 23:05 08/29/16 23:15 Morphine Injection - IVPUSH 2 mg Q4H PRN Administration PAIN Nystatin 1 applic 08/29/16 10:00 08/29/16 18:38 Nystop Powder - TP 1 applic DAILY LESLEE Administration Pantoprazole Sodium 40 mg 08/28/16 22:00 08/29/16 21:07 Protonix - PO 40 mg BID LESLEE Administration Polyethylene Glycol 17 gm 08/29/16 10:00 08/29/16 13:38 Miralax (For Daily Use) - PO Not Given DAILY LESLEE Prednisone 30 mg 08/29/16 10:00 08/29/16 11:02 Deltasone - PO 30 mg DAILY [facility]E Administration Senna 2 tab 08/28/16 14:22 Senna - PO DAILY PRN CONSTIPATION Sodium Chloride 2 spray 08/28/16 14:22 [place] Star[place] Nasal Starke - NS Q12H PRN NASAL CONGESTION Tamsulosin HCl 0.4 mg 08/29/16 08:30 08/29/16 11:02 Flomax - PO 0.4 mg DAILY@0830 [facility]E Administration Objective: Vital Signs Period Temp Pulse Resp BP Sys/[place] Pulse Ox Last 24 Hr 97 F-98.3 F 60-80 16-27 104-143/55-81 91-95 Physical Exam: General: NAD, A&Ox3 Lungs: Decreased breath sounds bilaterally, on bipap Heart: RRR, S1S2 Abd: Soft, non-tender, non-distended. Normoactive bowel sounds Ext: B/l lower extremity edema. Chronic venous stasis changes CBCD WBC 15.4 K/mm3 (4.0-10.0) H 08/30/16 05:05 RBC 2.84 M/mm3 (4.00-5.60) L 08/30/16 05:05 Hgb 8.0 GM/dL (11.7-16.9) L 08/30/16 05:05 Hct 25.9 % (35.4-49) L 08/30/16 05:05 MCV 91.0 fl (80-96) 08/30/16 05:05 MCHC 30.9 g/dl (32.0-35.9) L 08/30/16 05:05 RDW 17.3 % (11.9-15.9) H 08/30/16 05:05 Plt Count 269 K/MM3 (134-434) 08/30/16 05:05 MPV 7.6 fl (7.5-11.1) 08/30/16 05:05 CMP Sodium 154 mmol/L (136-145) H 08/30/16 05:05 Potassium 4.2 mmol/L (3.5-5.1) 08/30/16 05:05 Chloride 108 mmol/L (98-107) H 08/30/16 05:05 Carbon Dioxide 38 mmol/L (21-32) H 08/30/16 05:05 Anion Gap 8 (8-16) 08/30/16 05:05 BUN 97 mg/dL (7-18) H 08/30/16 05:05 Creatinine 2.4 mg/dL (0.7-1.3) H 08/30/16 05:05 Creat Clearance w eGFR 26.67 (>60) 08/30/16 05:05 Random Glucose 78 mg/dL (74-106) 08/30/16 05:05 Calcium 7.9 mg/dL (8.5-10.1) L 08/30/16 05:05 Total Bilirubin 0.4 mg/dL (0.2-1.0) 08/30/16 05:05 AST 14 U/L (15-37) L D 08/30/16 05:05 ALT 10 U/L (12-78) L 08/30/16 05:05 Alkaline Phosphatase 66 U/L (45-117) 08/30/16 05:05 Total Protein 5.4 g/dl (6.4-8.2) L 08/30/16 05:05 Albumin 2.5 g/dl (3.4-5.0) L 08/30/16 05:05 CARDIAC ENZYMES Creatine Kinase 9 IU/L (39-308) L 08/24/16 05:20 Troponin I < 0.02 ng/ml (0.00-0.05) 08/24/16 05:20 Microbiology 08/23/16 19:10 Blood - Peripheral Venous Blood Culture - Final NO GROWTH AFTER 5 DAYS INCUBATION 08/23/16 19:10 Blood - Peripheral Venous Blood Culture - Final NO GROWTH AFTER 5 DAYS INCUBATION 08/23/16 20:26 Urine - Urine Clean Catch Urine Culture - Final NO GROWTH OBTAINED 08/23/16 21:56 Urine For Antigen Detection Legionella Antigen - Final 08/23/16 21:56 Urine For Antigen Detection Streptococcus pneumoniae Antigen (M - Final Assessment: This is a 75 year old male with PMHx of HTN, hyperlipidemia, CAD s/ p stenting x2 (2014), diastolic heart failure, a.fib, COPD, respiratory failure requiring intubation (02/2016-04/2016), GI bleed, h/o DVT and PE, urinary retention with chronic lilly catheter who presented to the ED with shortness of breath and refusal to take any po medications. Plan: 3) Pulmonary: Acute on chronic hypoxic hypercapnic respiratory failure likely 2/ 2 aspiration pneumonia - Remains on Bipap - Chest X-ray with b/l pleural effusions - Continue Ertapenem for 5 more days for aspiration pneumonia (discussed with Dr. Szymanski) B/l pleural effusions R>L - Recent admission with left thoracentesis about two weeks ago - For b/l pigtail catheters today Chronic respiratory failure - Continue Prednisone 30mg po daily - Continue Bipap alternating with NRB - Continue Duonebs - Continue Mucomyst - Appreciate pulmonary consult 2) GI: GI bleed - Stool guiac per GI positive - S/p 1u PRBC on 08/26 - Monitor H/H closely, will likely need further transfusions - Patient has refused GI workup including colonoscopy, EGD - Continue Protonix - Appreciate GI consult 3) Cardiology: Chronic diastolic heart failure - Hold all diuretics as the patient appears intravascularly depleted - Hold ASA for right thoracentesis DVT/PE - Was on Eliquis at home, discontinued - On Heparin gtt now Paroxysmal a.fib HTN - Continue Metoprolol - Continue Norvasc Hyperlipidemia - Continue Lipitor 4) : KARLOS on CKD - Continue to monitor Cr - Appreciate nephrology consult 5) F/E/N: - Monitor electrolytes - Diabetic/low sodium diet - Hypernatremia: 5.5 L water deficit, start on D5W at 84ml/hr 6) Prophylaxis: - Continue Heparin gtt - PT 7) Dispo: - Requires continued inpatient care - Was accepted to [facility] once stable to be discharged CODE STATUS: FULL CODE Visit type - Emergency Visit Emergency Visit: Yes ED Registration Date: 08/23/16 Care time: The patient presented to the Emergency Department on the above date and was hospitalized for further evaluation of their emergent condition. - New Patient This patient is new to me today: No - Critical Care Critical Care patient: Yes Total Critical Care Time (in minutes): 45 Critical Care Statement: The care of this patient involved high complexity decision making to prevent further life threatening deterioration of the patient 's condition and/or to evalute & treat vital organ system(s) failure or risk of failure.
--- NOTE | 2016-08-30 13:24 | PN ---
Progress Note (short form) - Note Progress Note: Renal Follow up for KARLOS/CKD Pt seen and examined in the ICU awake on BIPAP pt desaturates off bipap as per ICU staff good urine output have been reciving PRN diuretics Vital Signs Temperature 98.3 F 08/30/16 10:00 Pulse Rate 80 08/30/16 12:00 Respiratory Rate 20 08/30/16 12:00 Blood Pressure 135/70 08/30/16 12:00 O2 Sat by Pulse Oximetry (%) 92 L 08/30/16 10:00 Intake & Output 08/27/16 08/28/16 08/29/16 08/30/16 23:59 23:59 23:59 23:59 Intake Total 494 594 734 242 Output Total 1000 1500 1550 400 Balance -506 -906 -816 -158 Weight 206 lb 2.115 oz 205 lb 4 oz 202 lb 2 oz Gen: NAD on BIPAP CVS: RRR, No M/R Lungs: Course BS, no wheeze, no rales Abd: soft, obese, NT/ND Ext: Trace LE edema, no cyanosis or clubbing CBC, BMP 08/30/16 05:05 08/30/16 05:05 Current Medications Acetaminophen (Tylenol -) 650 mg PO Q6H PRN PRN Reason: PAIN Last Admin: 08/28/16 21:29 Dose: 650 mg Acetylcysteine (Mucomyst 20 Oral / Inh Use Only*) 600 mg NEB QIDR [facility] Last Admin: 08/30/16 11:40 Dose: 600 mg Albuterol Sulfate (Ventolin 0.083% Nebulizer Soln -) 1 amp NEB QIDR [facility] Last Admin: 08/30/16 11:40 Dose: 1 amp Atorvastatin Calcium (Lipitor -) 20 mg PO HS [facility] Last Admin: 08/29/16 21:07 Dose: 20 mg Bupropion HCl (Wellbutrin Xl -) 150 mg PO DAILY [facility] Last Admin: 08/29/16 11:02 Dose: 150 mg Docusate Sodium (Colace -) 100 mg PO BID [facility] Last Admin: 08/29/16 21:07 Dose: 100 mg Duloxetine HCl (Cymbalta -) 60 mg PO DAILY [facility] Last Admin: 08/29/16 11:05 Dose: 60 mg Epoetin Keith (Procrit -) 10,000 unit IVPUSH MoWeFr@10 [facility] Last Admin: 08/30/16 10:21 Dose: 10,000 unit Ferrous Sulfate (Feosol -) 325 mg PO BID [facility] Last Admin: 08/29/16 21:07 Dose: 325 mg Guaifenesin (Mucinex -) 600 mg PO BID PRN Heparin Sodium (Porcine) (Heparin -) 1,000 unit IVPUSH PRN PRN PRN Reason: Heparin Heparin Sodium (Porcine) (Heparin -) 5,000 unit IVPUSH PRN PRN PRN Reason: Heparin Heparin Sodium (Porcine) 25, (000 unit/ Sodium Chloride) 500 mls @ 20 mls/hr IV TITR LESLEE; 1,000 UNIT/HR PRN Reason: Protocol Last Titration: 08/30/16 11:00 Dose: 0 unit/hr Ertapenem 1 gm/ Sodium (Chloride) 50 mls @ 100 mls/hr IVPB DAILY [facility] PRN Reason: Protocol Last Admin: 08/30/16 10:21 Dose: 100 mls/hr Dextrose (D5w -) 1,000 mls @ 83 mls/hr IV Q12H [facility] Last Admin: 08/30/16 11:59 Dose: 83 mls/hr Insulin Aspart (Novolog Vial Sliding Scale -) 1 vial SQ ACHS [facility] PRN Reason: Protocol Last Admin: 08/30/16 11:39 Dose: Not Given Metoprolol Tartrate (Lopressor -) 25 mg PO BID [facility] Last Admin: 08/29/16 21:07 Dose: 25 mg Morphine Sulfate (Morphine Injection -) 2 mg IVPUSH Q4H PRN PRN Reason: PAIN Last Admin: 08/29/16 23:15 Dose: 2 mg Nystatin (Nystop Powder -) 1 applic TP DAILY [facility] Last Admin: 08/29/16 18:38 Dose: 1 applic Pantoprazole Sodium (Protonix -) 40 mg PO BID [facility] Last Admin: 08/29/16 21:07 Dose: 40 mg Polyethylene Glycol (Miralax (For Daily Use) -) 17 gm PO DAILY [facility] Last Admin: 08/29/16 13:38 Dose: Not Given Prednisone (Deltasone -) 30 mg PO DAILY [facility] Last Admin: 08/29/16 11:02 Dose: 30 mg Senna (Senna -) 2 tab PO DAILY PRN PRN Reason: CONSTIPATION Sodium Chloride ([place] Nasal Gilchrist -) 2 spray NS Q12H PRN PRN Reason: NASAL CONGESTION Tamsulosin HCl (Flomax -) 0.4 mg PO DAILY@0830 [facility] Last Admin: 08/29/16 11:02 Dose: 0.4 mg A/P 75 year old Gentleman with PMhx of CKD (Hx of KARLOS requiring dialysis), Hypertension, COPD on O2, BPH, Gout, CAD, Diastolic CHF who presented from Rehab with acute Resp Failure and found to have KARLOS on CKD. #Acute on Chronic Renal Failure secondary to intravascular depletion Renal function improving and pt is non-oliguric BUN very high due to steroids off standing lasix but has recieved PRN doses Continue to trend BUN/Cr dose all meds for Cr Cl less then 30 can continue Lasix PRN #Hypernatremia water deficit is 5.5L start D5W at 84 cc per hour as pt is NPO Trend na Daily #Resp Failure on BIPAP/Pleural effusion possible thoracentesis as per ICU #Anemia Continue Epogen and iron Thank you Will follow Melvin Johnson DO
[2016-08-30 15:16] LABS: GLUCOSE,PLEURAL FLUID 81.979; TOTAL PROTEIN,PLEURAL FLUID 2.974
[2016-08-30] MEDS: TAMSULOSIN HCL 0.4 MG CAP.ER.24H (FP) PO SCH (15:31)
[2016-08-30] MEDS: predniSONE 10 MG TABLET (UD) PO SCH (15:32)
[2016-08-30] MEDS: PANTOPRAZOLE 40 MG TABLET (FP) PO SCH ×2 (15:33→21:21)
[2016-08-30] MEDS: FERROUS SO4 325 MG TABLET (FP) PO SCH ×2 (15:33→21:09)
[2016-08-30] MEDS: DOCUSATE SODIUM 100 MG CAPSULE (FP) PO SCH ×2 (15:33→21:09)
[2016-08-30] MEDS: DULoxetine HCL 30 MG CAPSULE.DR (FP) PO SCH (15:33)
[2016-08-30] MEDS: POLYETHYLENE GLYCOL 3350 119 GM BTL PO SCH (16:13)
[2016-08-30] MEDS: METOPROLOL TARTRATE 25 MG TABLET (FP) PO SCH ×2 (16:14→21:10)
[2016-08-30] MEDS: HEPARIN - 25,000 UNIT in SODIUM CHLORIDE 495 ML IV SCH (16:14)
--- NOTE | 2016-08-30 17:37 | PN ---
Progress Note, Physician History of Present Illness: Pt sleeping on BiPAP - Current Medication List Current Medications: Active Medications Acetaminophen (Tylenol -) 650 mg PO Q6H PRN PRN Reason: PAIN Last Admin: 08/28/16 21:29 Dose: 650 mg Acetylcysteine (Mucomyst 20 Oral / Inh Use Only*) 600 mg NEB QIDR [facility] Last Admin: 08/30/16 11:40 Dose: 600 mg Albuterol Sulfate (Ventolin 0.083% Nebulizer Soln -) 1 amp NEB QIDR [facility] Last Admin: 08/30/16 17:34 Dose: 1 amp Atorvastatin Calcium (Lipitor -) 20 mg PO HS [facility] Last Admin: 08/29/16 21:07 Dose: 20 mg Bupropion HCl (Wellbutrin Xl -) 150 mg PO DAILY [facility] Last Admin: 08/30/16 15:33 Dose: 150 mg Docusate Sodium (Colace -) 100 mg PO BID [facility] Last Admin: 08/30/16 15:33 Dose: 100 mg Duloxetine HCl (Cymbalta -) 60 mg PO DAILY [facility] Last Admin: 08/30/16 15:33 Dose: 60 mg Epoetin Keith (Procrit -) 10,000 unit IVPUSH MoWeFr@10 [facility] Last Admin: 08/30/16 10:21 Dose: 10,000 unit Ferrous Sulfate (Feosol -) 325 mg PO BID [facility] Last Admin: 08/30/16 15:33 Dose: 325 mg Guaifenesin (Mucinex -) 600 mg PO BID PRN Heparin Sodium (Porcine) (Heparin -) 1,000 unit IVPUSH PRN PRN PRN Reason: Heparin Heparin Sodium (Porcine) (Heparin -) 5,000 unit IVPUSH PRN PRN PRN Reason: Heparin Heparin Sodium (Porcine) 25, (000 unit/ Sodium Chloride) 500 mls @ 20 mls/hr IV TITR LESLEE; 1,000 UNIT/HR PRN Reason: Protocol Last Admin: 08/30/16 16:14 Dose: Not Given Ertapenem 1 gm/ Sodium (Chloride) 50 mls @ 100 mls/hr IVPB DAILY [facility] PRN Reason: Protocol Last Admin: 08/30/16 10:21 Dose: 100 mls/hr Dextrose (D5w -) 1,000 mls @ 83 mls/hr IV Q12H [facility] Last Admin: 08/30/16 11:59 Dose: 83 mls/hr Insulin Aspart (Novolog Vial Sliding Scale -) 1 vial SQ ACHS [facility] PRN Reason: Protocol Last Admin: 08/30/16 11:39 Dose: Not Given Metoprolol Tartrate (Lopressor -) 25 mg PO BID [facility] Last Admin: 08/30/16 16:14 Dose: Not Given Morphine Sulfate (Morphine Injection -) 2 mg IVPUSH Q4H PRN PRN Reason: PAIN Last Admin: 08/29/16 23:15 Dose: 2 mg Nystatin (Nystop Powder -) 1 applic TP DAILY [facility] Last Admin: 08/30/16 11:00 Dose: 1 applic Pantoprazole Sodium (Protonix -) 40 mg PO BID [facility] Last Admin: 08/30/16 15:33 Dose: 40 mg Polyethylene Glycol (Miralax (For Daily Use) -) 17 gm PO DAILY [facility] Last Admin: 08/30/16 16:13 Dose: Not Given Prednisone (Deltasone -) 30 mg PO DAILY [facility] Last Admin: 08/30/16 15:32 Dose: 30 mg Senna (Senna -) 2 tab PO DAILY PRN PRN Reason: CONSTIPATION Sodium Chloride ([place] Nasal [place] -) 2 spray NS Q12H PRN PRN Reason: NASAL CONGESTION Tamsulosin HCl (Flomax -) 0.4 mg PO DAILY@0830 [facility] Last Admin: 08/30/16 15:31 Dose: 0.4 mg - Objective Vital Signs: Vital Signs Temperature 98 F 08/30/16 14:00 Pulse Rate 93 H 08/30/16 16:00 Respiratory Rate 24 08/30/16 16:00 Blood Pressure 93/55 08/30/16 16:00 O2 Sat by Pulse Oximetry (%) 100 08/30/16 16:00 Constitutional: Yes: No Distress HENT: Yes: Atraumatic, Normocephalic Neck: Yes: Trachea Midline Cardiovascular: Yes: Regular Rate and Rhythm Respiratory: Yes: Diminished (bilateral) Gastrointestinal: Yes: Soft. No: Tenderness Edema: LLE: 2+, RLE: 2+ Labs: CBC, BMP 08/30/16 05:05 08/30/16 05:05 INR, PTT INR 1.22 (0.82-1.09) H 08/27/16 06:00 Assessment/Plan (1) Acute and chronic respiratory failure with hypoxia Code(s): J96.21 - ACUTE AND CHRONIC RESPIRATORY FAILURE WITH HYPOXIA (2) Atrial fibrillation Code(s): I48.91 - UNSPECIFIED ATRIAL FIBRILLATION (3) Pleural effusion Code(s): J90 - PLEURAL EFFUSION, NOT ELSEWHERE CLASSIFIED (4) Pneumonia Code(s): J18.9 - PNEUMONIA, UNSPECIFIED ORGANISM Qualifiers: Pneumonia type: due to unspecified organism Laterality: left Lung location: lower lobe of lung Qualified Code(s): J18.1 - Lobar pneumonia, unspecified organism (5) Acute on chronic diastolic (congestive) heart failure Code(s): I50.33 - ACUTE ON CHRONIC DIASTOLIC (CONGESTIVE) HEART FAILURE (6) Renal Insufficiency (7) GI Bleeding Progressive dyspnea secondary to COPD, diastolic heart failure, anemia, renal insufficiency and GI bleeding. Pt is s/p placement of bilateral pigtail catheters chest today. Fluid drainin cc right and several hundred cc left so far. Suggest: NIPPV O2 to maintain SaO2 >90 Inhaled bronchodilators Taper steroids Antibiotics per I.D. Placement LTAC being arranged.
[2016-08-30 18:08] LABS: PLEURAL FLUID SOURCE PLEURAL FLUID
[2016-08-30 18:09] LABS: PLEURAL FLUID APPEARANCE CLOUDY; PLEURAL FLUID COLOR RED
[2016-08-30] MEDS: ATORVASTATIN CA 20 MG TABLET (FP) PO SCH (21:09)
[2016-08-30 21:34] LABS: PLEURAL FLUID LYMPHOCYTES 15 %; PLEURAL FLUID MACROPHAGES 80 %; PLEURAL FLUID NEUTROPHIL 2 %
[2016-08-31] MEDS: ACETYLCYSTEINE 20% 200MG/ML 4 ML VIAL *FOR ORAL / INH USE ONLY NEB SCH ×5 (00:14→23:50)
[2016-08-31] MEDS: ALBUTEROL SO4 0.083% IH SOL 2.5 MG/3 ML VIAL.NEB. NEB SCH ×5 (00:14→23:51)
[2016-08-31 06:15] LABS: MCH 28.4 pg (25.7-33.7); MCHC 30.8 g/dl (32.0-35.9); MEAN PLT VOLUME 8.1 fl (7.5-11.1); PLATELET COUNT 224 K/MM3 (134-434); RDW 17.5 % (11.9-15.9); WHITE BLOOD COUNT 21.3 K/mm3 (4.0-10.0)
[2016-08-31 07:05] LABS: ALBUMIN 2.2 g/dl (3.4-5.0); CALCIUM 7.9 mg/dL (8.5-10.1); CREATININE 2.7 mg/dL (0.7-1.3); MAGNESIUM 3.3 mg/dL (1.8-2.4); PHOSPHOROUS 5.7 mg/dL (2.5-4.9); TOT PROT 4.8 g/dl (6.4-8.2)
[2016-08-31 07:06] LABS: BILIRUBIN,TOTAL 0.4 mg/dL (0.2-1.0)
[2016-08-31] MEDS: INSULIN SLIDING SCALE (NOVOLOG) 1 VIAL SQ SCH ×4 (07:23→22:25)
[2016-08-31 07:51] LABS: ARTERIAL BLD GAS O2 SATURATION 99.6 % (90-98.9); ARTERIAL BLOOD GAS BASE EXCESS 5.3 meq/l (-2-2); ARTERIAL BLOOD GAS HCO3 35.4 meq/L (22-26)
[2016-08-31 07:52] LABS: ALLENS TEST POSITIVE; ART PUNCT SITE LEFT RADIAL; LPM/O2% 100%; MECH. VENT. BIPAP; PT. ON O2? YES; TYPE OF O2 BIPAP; VENT RATE 26; VT/PRESS IPAP 18/EPAP 8
[2016-08-31 07:53] LABS: ARTERIAL BLOOD GAS pH 7.21 (7.35-7.45)
--- NOTE | 2016-08-31 08:27 | PN ---
Physical Exam: SUBJECTIVE: Patient seen and examined at bedside this AM in ICU. States his breathing is much better s/p pigtail catheter placement yesterday. Afebrile overnight with stable vitals. Good oxygen saturation overnight on bipap. 1300cc output from right pleural cath, 350cc output from left pleural cath. at bedside and agrees with plan to send to LTAC (possibly later today) as vitals are stable with good Oxygen saturation & patient would benefit from long-term care facility. OBJECTIVE: Vital Signs Period Temp Pulse Resp BP Sys/[place] Pulse Ox Last 24 Hr 97.7 F-98.3 F 80-93 13-25 93-135/51-70 91-100 GENERAL: Awake, alert, and fully oriented, in no acute distress. Sitting upright with bipap on. HEENT: Atraumatic, EOMI, PERRLA, No lymphadenopathy noted, dry tongue/lips LUNGS: Breath sounds significantly improved on right lung; minimal scattered rhonchi noted on left lung. No wheezes or accessory muscle use noted. HEART: Regular rate and rhythm, normal S1 and S2 with systolic murmur, rub or gallop. ABDOMEN: Soft, obese, nontender, not distended, normoactive bowel sounds, no guarding, no rebound, no masses. No hepatomegaly or splenomegaly. EXTREMITIES: 2+ pulses, warm, well-perfused. No calf tenderness. No peripheral edema. NEUROLOGICAL: Cranial nerves II-XII intact. Normal speech. Gait deferred. PSYCHIATRIC: Cooperative. Good eye contact. Much less anxious than before. SKIN: Bilateral lower ext with skin discoloration with dark yellow patches and venous stasis. No signs of fluid overload. Laboratory Results - last 24 hr 08/30/16 08/30/16 08/30/16 11:27 13:40 14:19 WBC RBC Hgb Hct MCV MCHC RDW Plt Count MPV Neutrophils % Lymphocytes % PTT (Actin FS) Puncture Site ABG pH ABG pCO2 at Pt Temp ABG pO2 at Pt Temp ABG HCO3 ABG O2 Sat (Measured) ABG O2 Content ABG Base Excess Issac Test O2 Delivery Device Oxygen Flow Rate Vent Mode Vent Rate Mechanical Rate PEEP Pressure Support Vent Sodium Potassium Chloride Carbon Dioxide Anion Gap BUN Creatinine Creat Clearance w eGFR POC Glucometer 94.71483 Random Glucose Calcium Phosphorus Magnesium Total Bilirubin AST ALT Alkaline Phosphatase Total Protein Albumin Pleural Fluid Source Pleural fluid Pleural Color Red Pleural Appearance Cloudy Pleural WBC 230 Pleural RBC 78314 Pleural Neutrophils 2 Pleural Lymphocytes 15 Pleural Monocytes 1 Pleural Macrophages 80 Pleural Mesothelial 3 Pleural Chloride Y Pleural Total Protein 2.974 Pleural Albumin 2 Pleural LDH 156.41 Pleural Glucose 81.979 Pleural Amylase 41.678 Cancelled Pleural Cholesterol 51 Pleural Triglycerides 27 08/31/16 08/31/16 08/31/16 05:20 05:20 05:20 WBC 21.3 H D RBC 2.65 L Hgb 7.5 L Hct 24.4 L MCV 92.0 MCHC 30.8 L RDW 17.5 H Plt Count 224 MPV 8.1 Neutrophils % Y Lymphocytes % Y PTT (Actin FS) 57.5 H Puncture Site ABG pH ABG pCO2 at Pt Temp ABG pO2 at Pt Temp ABG HCO3 ABG O2 Sat (Measured) ABG O2 Content ABG Base Excess Issac Test O2 Delivery Device Oxygen Flow Rate Vent Mode Vent Rate Mechanical Rate PEEP Pressure Support Vent Sodium 149 H Potassium 4.4 Chloride 106 Carbon Dioxide 38 H Anion Gap 5 L BUN 97 H Creatinine 2.7 H Creat Clearance w eGFR 23.28 POC Glucometer Random Glucose 151 H D Calcium 7.9 L Phosphorus 5.7 H Magnesium 3.3 H Total Bilirubin 0.4 AST 14 L ALT 8 L Alkaline Phosphatase 65 Total Protein 4.8 L Albumin 2.2 L Pleural Fluid Source Pleural Color Pleural Appearance Pleural WBC Pleural RBC Pleural Neutrophils Pleural Lymphocytes Pleural Monocytes Pleural Macrophages Pleural Mesothelial Pleural Chloride Pleural Total Protein Pleural Albumin Pleural LDH Pleural Glucose Pleural Amylase Pleural Cholesterol Pleural Triglycerides 08/31/16 07:40 WBC RBC Hgb Hct MCV MCHC RDW Plt Count MPV Neutrophils % Lymphocytes % PTT (Actin FS) Puncture Site Left radial ABG pH 7.21 L* ABG pCO2 at Pt Temp 91.2 H* D ABG pO2 at Pt Temp 187.0 H* D ABG HCO3 35.4 H ABG O2 Sat (Measured) 99.6 H* ABG O2 Content 16.1 ABG Base Excess 5.3 H Issac Test Positive O2 Delivery Device Bipap Oxygen Flow Rate 100% Vent Mode S/t Vent Rate 26 Mechanical Rate Bipap PEEP 0.0 Pressure Support Vent Ipap 18/epap 8 Sodium Potassium Chloride Carbon Dioxide Anion Gap BUN Creatinine Creat Clearance w eGFR POC Glucometer Random Glucose Calcium Phosphorus Magnesium Total Bilirubin AST ALT Alkaline Phosphatase Total Protein Albumin Pleural Fluid Source Pleural Color Pleural Appearance Pleural WBC Pleural RBC Pleural Neutrophils Pleural Lymphocytes Pleural Monocytes Pleural Macrophages Pleural Mesothelial Pleural Chloride Pleural Total Protein Pleural Albumin Pleural LDH Pleural Glucose Pleural Amylase Pleural Cholesterol Pleural Triglycerides Active Medications Generic Name Dose Route Start Last Admin Trade Name Freq PRN Reason Stop Dose Admin Acetaminophen 650 mg 08/28/16 14:22 08/28/16 21:29 Tylenol - PO 650 mg Q6H PRN Administration PAIN Acetylcysteine 600 mg 08/28/16 18:00 08/31/16 06:23 Mucomyst 20 Oral / Inh Use Only* NEB 600 mg QIDR LESLEE Administration Albuterol Sulfate 1 amp 08/28/16 18:00 08/31/16 06:23 Ventolin 0.083% Nebulizer Soln - NEB 1 amp QIDR LESLEE Administration Atorvastatin Calcium 20 mg 08/28/16 22:00 08/30/16 21:09 Lipitor - PO 20 mg HS LESLEE Administration Bupropion HCl 150 mg 08/29/16 10:00 08/30/16 15:33 Wellbutrin Xl - PO 150 mg DAILY LESLEE Administration Docusate Sodium 100 mg 08/28/16 22:00 08/30/16 21:09 Colace - PO 100 mg BID LESLEE Administration Duloxetine HCl 60 mg 08/29/16 10:00 08/30/16 15:33 Cymbalta - PO 60 mg DAILY LESLEE Administration Epoetin Keith 10,000 unit 08/30/16 10:00 08/30/16 10:21 Procrit - IVPUSH 10,000 unit [email or web address]@10 LESLEE Administration Ferrous Sulfate 325 mg 08/28/16 22:00 08/30/16 21:09 Feosol - PO 325 mg BID LESLEE Administration Guaifenesin 600 mg 08/28/16 14:22 Mucinex - PO BID PRN Heparin Sodium (Porcine) 1,000 unit 08/28/16 14:22 Heparin - IVPUSH PRN PRN Heparin Heparin Sodium (Porcine) 5,000 unit 08/28/16 14:22 Heparin - IVPUSH PRN PRN Heparin Heparin Sodium (Porcine) 25, 500 mls @ 20 mls/hr 08/28/16 14:22 08/30/16 19:00 000 unit/ Sodium Chloride IV 800 unit/hr TITR LESLEE Titration Protocol 1,000 UNIT/HR Ertapenem 1 gm/ Sodium 50 mls @ 100 mls/hr 08/30/16 10:00 08/30/16 10:21 Chloride IVPB 100 mls/hr DAILY LESLEE Administration Protocol Dextrose 1,000 mls @ 83 mls/hr 08/30/16 11:45 08/30/16 23:50 D5w - IV 83 mls/hr Q12H LESLEE Administration Insulin Aspart 1 vial 08/28/16 16:30 08/31/16 07:23 Novolog Vial Sliding Scale - SQ Not Given ACHS LESLEE Protocol Metoprolol Tartrate 25 mg 08/28/16 22:00 08/30/16 21:10 Lopressor - PO Not Given BID LESLEE Morphine Sulfate 2 mg 08/29/16 23:05 08/29/16 23:15 Morphine Injection - IVPUSH 2 mg Q4H PRN Administration PAIN Nystatin 1 applic 08/29/16 10:00 08/30/16 11:00 Nystop Powder - TP 1 applic DAILY LESLEE Administration Pantoprazole Sodium 40 mg 08/28/16 22:00 08/30/16 21:21 Protonix - PO 40 mg BID LESLEE Administration Polyethylene Glycol 17 gm 08/29/16 10:00 08/30/16 16:13 Miralax (For Daily Use) - PO Not Given DAILY LESLEE Prednisone 30 mg 08/29/16 10:00 08/30/16 15:32 Deltasone - PO 30 mg DAILY LESLEE Administration Senna 2 tab 08/28/16 14:22 Senna - PO DAILY PRN CONSTIPATION Sodium Chloride 2 spray 08/28/16 14:22 [place]al [place] - NS Q12H PRN NASAL CONGESTION Tamsulosin HCl 0.4 mg 08/29/16 08:30 08/30/16 15:31 Flomax - PO 0.4 mg DAILY@0830 LESLEE Administration ASSESSMENT/PLAN: 75 year old male with PMH of HTN, HLD, CAD s/p stents x2 in 2014, diastolic CHF , AFIB, COPD, DVT and PE presented to ED last night from [place] for SOB & poor PO intake since being discharged from [facility] on 08/21/2016 for similar presentation. Found to be in ARF with right pleural effusion (larger than on discharge). #Acute Respiratory Failure, multifactorial etiology (aspiration pneumonia, superimposed on COPD exacerbation & chronic diastolic CHF) -saturating well on BiPAP -Ertapenem for aspiration pneumonia -Prednisone 30mg PO DAILY -Mucomyst/Ventolin treatments -CXR reviewed, right-sided effusion significantly improved; left sided effusion mildly improved -IR Consult appreciated -ID Consult appreciated #Anemia, (+) stool guiac -H/H stable since 1 unit PRBC given on 08/26 -EPO, Feosol being given as well -patient refused GI workup (colonoscopy/endoscopy) -will continue to monitor H/H for any signs of bleeding -GI Consult appreciated #KARLOS, improving (likely d/t poor PO intake & periods of relative hypotension during hospital stay) -D5-Water @83cc/hr for gently hydration -will monitor & trend kidney function -avoid nephrotoxic meds -hx of urinary retention with chronic lilly catheter -continue home meds: Flomax 0.4mg PO DAILY -nephrology consult appreciated #HTN/HTL/A-Fib history -currently on: Lopressor 25mg PO BID, Lipitor 20mg PO HS -need to discuss benefits & risks of full AC in setting of recurrent GI Bleeds with patient before starting Aspirin/Eliquis #Constipation -continue regimen: Colace, Miralax, Senna #Anxiety Hx -continue home meds: Wellbutrin 150mg PO DAILY, Cymbalta 60mg PO DAILY #DM -ISS -BGM Prophylaxis/FEN -Heparin -PPI -no IVF needed at present -monitor electrolytes -NPO for now (on bipap) Dispo: Patient states he wants FULL CODE status. Accepted for LTAC (transfer likely later today). Visit type - Emergency Visit Emergency Visit: Yes ED Registration Date: 08/23/16 Care time: The patient presented to the Emergency Department on the above date and was hospitalized for further evaluation of their emergent condition. - New Patient This patient is new to me today: No - Critical Care Critical Care patient: Yes Total Critical Care Time (in minutes): 45 Critical Care Statement: The care of this patient involved high complexity decision making to prevent further life threatening deterioration of the patient 's condition and/or to evalute & treat vital organ system(s) failure or risk of failure.
--- NOTE | 2016-08-31 09:01 | PN ---
Progress Note, Physician Chief Complaint: s/p placement b/l pigtail catheters Tele: reviewed, NSR w/ [facility] History of Present Illness: on BiPAP - Current Medication List Current Medications: Active Medications Acetaminophen (Tylenol -) 650 mg PO Q6H PRN PRN Reason: PAIN Last Admin: 08/28/16 21:29 Dose: 650 mg Acetylcysteine (Mucomyst 20 Oral / Inh Use Only*) 600 mg NEB QIDR [facility] Last Admin: 08/31/16 06:23 Dose: 600 mg Albuterol Sulfate (Ventolin 0.083% Nebulizer Soln -) 1 amp NEB QIDR [facility] Last Admin: 08/31/16 06:23 Dose: 1 amp Atorvastatin Calcium (Lipitor -) 20 mg PO HS [facility] Last Admin: 08/30/16 21:09 Dose: 20 mg Bupropion HCl (Wellbutrin Xl -) 150 mg PO DAILY [facility] Last Admin: 08/30/16 15:33 Dose: 150 mg Docusate Sodium (Colace -) 100 mg PO BID [facility] Last Admin: 08/30/16 21:09 Dose: 100 mg Duloxetine HCl (Cymbalta -) 60 mg PO DAILY [facility] Last Admin: 08/30/16 15:33 Dose: 60 mg Epoetin Keith (Procrit -) 10,000 unit IVPUSH [email or web address]@10 [facility] Last Admin: 08/30/16 10:21 Dose: 10,000 unit Ferrous Sulfate (Feosol -) 325 mg PO BID [facility] Last Admin: 08/30/16 21:09 Dose: 325 mg Guaifenesin (Mucinex -) 600 mg PO BID PRN Heparin Sodium (Porcine) (Heparin -) 1,000 unit IVPUSH PRN PRN PRN Reason: Heparin Heparin Sodium (Porcine) (Heparin -) 5,000 unit IVPUSH PRN PRN PRN Reason: Heparin Heparin Sodium (Porcine) 25, (000 unit/ Sodium Chloride) 500 mls @ 20 mls/hr IV TITR LESLEE; 1,000 UNIT/HR PRN Reason: Protocol Last Titration: 08/30/16 19:00 Dose: 800 unit/hr Ertapenem 1 gm/ Sodium (Chloride) 50 mls @ 100 mls/hr IVPB DAILY LESLEE PRN Reason: Protocol Last Admin: 08/30/16 10:21 Dose: 100 mls/hr Dextrose (D5w -) 1,000 mls @ 83 mls/hr IV Q12H [facility] Last Admin: 08/30/16 23:50 Dose: 83 mls/hr Insulin Aspart (Novolog Vial Sliding Scale -) 1 vial SQ ACHS LESLEE PRN Reason: Protocol Last Admin: 08/31/16 07:23 Dose: Not Given Metoprolol Tartrate (Lopressor -) 25 mg PO BID [facility] Last Admin: 08/30/16 21:10 Dose: Not Given Morphine Sulfate (Morphine Injection -) 2 mg IVPUSH Q4H PRN PRN Reason: PAIN Last Admin: 08/29/16 23:15 Dose: 2 mg Nystatin (Nystop Powder -) 1 applic TP DAILY [facility] Last Admin: 08/30/16 11:00 Dose: 1 applic Pantoprazole Sodium (Protonix -) 40 mg PO BID [facility] Last Admin: 08/30/16 21:21 Dose: 40 mg Polyethylene Glycol (Miralax (For Daily Use) -) 17 gm PO DAILY [facility] Last Admin: 08/30/16 16:13 Dose: Not Given Prednisone (Deltasone -) 30 mg PO DAILY [facility] Last Admin: 08/30/16 15:32 Dose: 30 mg Senna (Senna -) 2 tab PO DAILY PRN PRN Reason: CONSTIPATION Sodium Chloride ([place] Nasal [place] -) 2 spray NS Q12H PRN PRN Reason: NASAL CONGESTION Tamsulosin HCl (Flomax -) 0.4 mg PO DAILY@0830 [facility] Last Admin: 08/30/16 15:31 Dose: 0.4 mg - Objective Vital Signs: Vital Signs Temperature 97.7 F 08/30/16 18:00 Pulse Rate 86 08/31/16 08:00 Respiratory Rate 15 08/31/16 08:00 Blood Pressure 114/62 08/31/16 08:00 O2 Sat by Pulse Oximetry (%) 100 08/30/16 21:30 Constitutional: Yes: No Distress Eyes: Yes: Conjunctiva Clear Cardiovascular: Yes: Regular Rate and Rhythm Respiratory: Yes: Other (decreased breath sounds bases. No wheezing) Gastrointestinal: Yes: Soft (obese) Edema: Yes Edema: LLE: 1+, RLE: 1+ Labs: CBC, BMP 08/31/16 05:20 08/31/16 05:20 INR, PTT INR 1.22 (0.82-1.09) H 08/27/16 06:00 Laboratory Tests 08/31/16 08/31/16 08/31/16 05:20 05:20 05:20 WBC 21.3 H D Hgb 7.5 L Plt Count 224 PTT (Actin FS) 57.5 H ABG pH ABG pCO2 at Pt Temp ABG pO2 at Pt Temp O2 Delivery Device Oxygen Flow Rate Sodium 149 H Potassium 4.4 BUN 97 H Creatinine 2.7 H 08/31/16 07:40 WBC Hgb Plt Count PTT (Actin FS) ABG pH 7.21 L* ABG pCO2 at Pt Temp 91.2 H* D ABG pO2 at Pt Temp 187.0 H* D O2 Delivery Device Bipap Oxygen Flow Rate 100% Sodium Potassium BUN Creatinine - ....Imaging EKG: Image Reviewed Assessment/Plan IMP: Acute on chronic exacerbation COPD, Right lower lobe PNA Acute on chronic renal failure, suspected ATN from periods of relative hypotension Anemia CAD s/p PCI History of DVT REC: 1. PNA: -superimposed on chronic COPD, chronic diastolic CHF -BiPAP -Abx as per ID, possible new aspiration event - s/p b/l pigtail catheters 2. ARF: -As per renal -Avoid nephrotoxins (no PIPER/ARB) -Avoid hypotension, hold parameters placed on amlodipine 3. Anemia: -guaiac + -Follow H/H -Will need to determine need for care home AC (was on Eliquis for prior DVT) -For now bridging w/ heparin gtts 4. CAD s/p PCI: -ASA on hold due to anemia and guaiac + stool -Resume when feasible post procedure.
[2016-08-31] MEDS ORDERED: PT OWN MED DRAWER 7, Y5N ONE (09:13)
[2016-08-31] MEDS: ERTAPENEM SODIUM 1 GM in SODIUM CHLORIDE 50 ML IVPB SCH (09:21)
[2016-08-31] MEDS: HEPARIN - 25,000 UNIT in SODIUM CHLORIDE 495 ML IV SCH ×2 (09:30→19:16)
[2016-08-31] MEDS ORDERED: HEPARIN INFUSION - 500 ML IVPB ONE (09:41)
[2016-08-31] MEDS: NYSTATIN POWDER 100,000 UNITS/GM - 15 GM TOPICAL POWDER TP SCH (11:30)
[2016-08-31 11:31] LABS: ARTERIAL BLD GAS O2 SATURATION 91.3 % (90-98.9); ARTERIAL BLOOD GAS BASE EXCESS 8.4 meq/l (-2-2); ARTERIAL BLOOD GAS PO2 60.2 mmHg (70-100)
[2016-08-31 11:38] LABS: ALLENS TEST POSITIVE; ART PUNCT SITE RIGHT RADIAL; LPM/O2% 60; PT. ON O2? YES; TYPE OF O2 BIPAP 18/8 RR 26
[2016-08-31] MEDS ORDERED: ACETAMINOPHEN 1000 MG/100 ML VIAL (NON FORMULARY) IVPB PRN (11:38)
[2016-08-31 11:39] LABS: ARTERIAL BLOOD GAS pH 7.35 (7.35-7.45)
[2016-08-31] MEDS: DEXTROSE 5%-WATER - 1,000 ML IV SCH (11:46)
[2016-08-31] MEDS: TAMSULOSIN HCL 0.4 MG CAP.ER.24H (FP) PO SCH (11:48)
[2016-08-31] MEDS: predniSONE 10 MG TABLET (UD) PO SCH (11:49)
[2016-08-31] MEDS: FERROUS SO4 325 MG TABLET (FP) PO SCH (11:49)
[2016-08-31] MEDS: DOCUSATE SODIUM 100 MG CAPSULE (FP) PO SCH ×2 (11:49→22:24)
[2016-08-31] MEDS: DULoxetine HCL 30 MG CAPSULE.DR (FP) PO SCH (11:49)
[2016-08-31] MEDS: POLYETHYLENE GLYCOL 3350 119 GM BTL PO SCH (11:50)
[2016-08-31] MEDS: METOPROLOL TARTRATE 25 MG TABLET (FP) PO SCH ×2 (11:50→22:24)
[2016-08-31] MEDS: PANTOPRAZOLE 40 MG TABLET (FP) PO SCH (11:50)
[2016-08-31] MEDS ORDERED: methylPREDNISolone NA SUCC 40 MG/1 ML VIAL IVPB SCH (12:00)
[2016-08-31] MEDS: PANTOPRAZOLE SODIUM 100 ML IVPB SCH (12:25)
--- NOTE | 2016-08-31 12:40 | PN ---
Progress Note (short form) - Note Progress Note: Renal Follow up for KARLOS/CKD Pt seen and examined in the ICU on BIPAP, ABG this am showed worsening resp acidosis wants to drink water Vital Signs Temperature 97.5 F L 08/31/16 10:00 Pulse Rate 89 08/31/16 12:00 Respiratory Rate 14 08/31/16 12:00 Blood Pressure 110/55 08/31/16 12:00 O2 Sat by Pulse Oximetry (%) 96 08/31/16 12:27 Intake & Output 08/28/16 08/29/16 08/30/16 08/31/16 23:59 23:59 23:59 23:59 Intake Total 325 784 4592 1034.5 Output Total 1500 1550 2720 355 Balance -906 -816 -1508 679.5 Weight 206 lb 2.115 oz 205 lb 4 oz 202 lb 2 oz 201 lb 0.985 oz Gen: NAD on BIPAP CVS: RRR, No M/R Lungs: Course BS, no wheeze, no rales Abd: soft, obese, NT/ND Ext: Trace LE edema, no cyanosis or clubbing CBC, BMP 08/31/16 05:20 08/31/16 05:20 Current Medications Acetaminophen (Ofirmev Injection -) 1,000 mg IVPB Q6H PRN PRN Reason: FEVER OR PAIN Stop: 09/01/16 05:39 Acetylcysteine (Mucomyst 20 Oral / Inh Use Only*) 600 mg NEB QIDR [facility] Last Admin: 08/31/16 06:23 Dose: 600 mg Albuterol Sulfate (Ventolin 0.083% Nebulizer Soln -) 1 amp NEB QIDR [facility] Last Admin: 08/31/16 06:23 Dose: 1 amp Atorvastatin Calcium (Lipitor -) 20 mg PO HS [facility] Last Admin: 08/30/16 21:09 Dose: 20 mg Bupropion HCl (Wellbutrin Xl -) 150 mg PO DAILY [facility] Last Admin: 08/31/16 11:51 Dose: Not Given Docusate Sodium (Colace -) 100 mg PO BID [facility] Last Admin: 08/31/16 11:49 Dose: Not Given Duloxetine HCl (Cymbalta -) 60 mg PO DAILY [facility] Last Admin: 08/31/16 11:49 Dose: Not Given Epoetin Keith (Procrit -) 10,000 unit IVPUSH MoWeFr@10 [facility] Last Admin: 08/30/16 10:21 Dose: 10,000 unit Ferrous Sulfate (Feosol -) 325 mg PO BID [facility] Last Admin: 08/31/16 11:49 Dose: Not Given Guaifenesin (Mucinex -) 600 mg PO BID PRN Heparin Sodium (Porcine) (Heparin -) 1,000 unit IVPUSH PRN PRN PRN Reason: Heparin Heparin Sodium (Porcine) (Heparin -) 5,000 unit IVPUSH PRN PRN PRN Reason: Heparin Heparin Sodium (Porcine) 25, (000 unit/ Sodium Chloride) 500 mls @ 20 mls/hr IV TITR LESLEE; 1,000 UNIT/HR PRN Reason: Protocol Last Admin: 08/31/16 09:30 Dose: 16 mls/hr Ertapenem 1 gm/ Sodium (Chloride) 50 mls @ 100 mls/hr IVPB DAILY LESLEE PRN Reason: Protocol Last Admin: 08/31/16 09:21 Dose: 100 mls/hr Dextrose (D5w -) 1,000 mls @ 83 mls/hr IV Q12H [facility] Last Admin: 08/31/16 11:46 Dose: 83 mls/hr Pantoprazole Sodium (Protonix 40mg Ivpb (Pre-Docked)) 100 mls @ 200 mls/hr IVPB DAILY [facility] Last Admin: 08/31/16 12:25 Dose: 200 mls/hr Insulin Aspart (Novolog Vial Sliding Scale -) 1 vial SQ ACHS LESLEE PRN Reason: Protocol Last Admin: 08/31/16 11:46 Dose: 3 units Methylprednisolone Sodium Succinate (Solu-Medrol -) 40 mg IVPB DAILY [facility] Last Admin: 08/31/16 12:24 Dose: 40 mg Metoprolol Tartrate (Lopressor -) 25 mg PO BID [facility] Last Admin: 08/31/16 11:50 Dose: Not Given Morphine Sulfate (Morphine Injection -) 2 mg IVPUSH Q4H PRN PRN Reason: PAIN Last Admin: 08/29/16 23:15 Dose: 2 mg Nystatin (Nystop Powder -) 1 applic TP DAILY [facility] Last Admin: 08/31/16 11:30 Dose: 1 applic Polyethylene Glycol (Miralax (For Daily Use) -) 17 gm PO DAILY [facility] Last Admin: 08/31/16 11:50 Dose: Not Given Senna (Senna -) 2 tab PO DAILY PRN PRN Reason: CONSTIPATION Sodium Chloride ([place] Nasal [place] -) 2 spray NS Q12H PRN PRN Reason: NASAL CONGESTION Tamsulosin HCl (Flomax -) 0.4 mg PO DAILY@0830 [facility] Last Admin: 08/31/16 11:48 Dose: Not Given A/P 75 year old Gentleman with PMhx of CKD (Hx of KARLOS requiring dialysis), Hypertension, COPD on O2, BPH, Gout, CAD, Diastolic CHF who presented from Rehab with acute Resp Failure and found to have KARLOS on CKD. #Acute on Chronic Renal Failure secondary to intravascular depletion Cr up trended to 2.7 today, pt with some relative hypotension last night (-> more renal hypoperfusion?) No nephrotoxin exposoure continue to hold diuretics at this time no PIPER/ARB Trend BUN/Cr keep MAP > 65 continue to trend BUN/Cr no indication for [employer]GAL [employer]ER #Hypernatremia Serum Na improving with D5W continue at the present rate Goal rate of correction is 4-8 per 24 hours #Resp Failure on BIPAP/Pleural effusion s/p thoracentesis with improvement in pleural effusions continue Abx as per ID #Anemia Continue Epogen and iron Melvin Johnson DO
[2016-08-31 12:50] LABS: PLATELET ESTIMATE ADEQUATE (NORMAL)
--- NOTE | 2016-08-31 13:32 | DS ---
Physical Exam: SUBJECTIVE: Patient seen and examined in ICU bed with spouse at bedside. Patient states "It is easier to breath" after pigtail placed. OBJECTIVE: Vital Signs Period Temp Pulse Resp BP Sys/[place] Pulse Ox Last 24 Hr 97.5 F-98 F 81-93 13-25 93-125/51-66 96-100 PHYSICAL EXAM GENERAL: The patient is awake, alert, and fully oriented, in no acute distress. HEAD: Normal with no signs of trauma. EYES: PERRL, extraocular movements intact, sclera anicteric, conjunctiva clear. ENT: Ears normal, nares patent, oropharynx clear without exudates, moist mucous membranes. NECK: Trachea midline, full range of motion, supple. LUNGS: Breath sounds equal, diminished on auscultation bilaterally, no wheezes, no crackles, no accessory muscle use. Desats to 81% off NIPPV. Speaking full sentences. HEART: Regular rate and rhythm, S1, S2 without murmur, rub or gallop. ABDOMEN: Soft, nontender, nondistended, normoactive bowel sounds, no guarding, no rebound, no hepatosplenomegaly, no masses. EXTREMITIES: 2+ pulses, warm, well-perfused, no edema. NEUROLOGICAL: Cranial nerves II through XII grossly intact. Normal speech, gait not observed. PSYCH: Normal mood, normal affect. SKIN: Warm, dry, normal turgor, no rashes or lesions noted. LABS Laboratory Results - last 24 hr 3 08/30/16 08/30/16 08/30/16 11:27 13:40 14:19 WBC RBC Hgb Hct MCV MCHC RDW Plt Count MPV Neutrophils % Lymphocytes % Monocytes % Basophils % Differential Comment Platelet Estimate PTT (Actin FS) Puncture Site ABG pH ABG pCO2 at Pt Temp ABG pO2 at Pt Temp ABG HCO3 ABG O2 Sat (Measured) ABG O2 Content ABG Base Excess Issac Test O2 Delivery Device Oxygen Flow Rate Vent Mode Vent Rate Mechanical Rate PEEP Pressure Support Vent Sodium Potassium Chloride Carbon Dioxide Anion Gap BUN Creatinine Creat Clearance w eGFR POC Glucometer 94.34570 Random Glucose Calcium Phosphorus Magnesium Total Bilirubin AST ALT Alkaline Phosphatase Total Protein Albumin Pleural Fluid Source Pleural fluid Pleural Color Red Pleural Appearance Cloudy Pleural WBC 230 Pleural RBC 11361 Pleural Neutrophils 2 Pleural Lymphocytes 15 Pleural Monocytes 1 Pleural Macrophages 80 Pleural Mesothelial 3 Pleural Chloride Y Pleural Total Protein 2.974 Pleural Albumin 2 Pleural LDH 156.41 Pleural Glucose 81.979 Pleural Amylase 41.678 Cancelled Pleural Cholesterol 51 Pleural Triglycerides 27 3 08/30/16 08/30/16 08/30/16 14:37 18:31 21:24 WBC RBC Hgb Hct MCV MCHC RDW Plt Count MPV Neutrophils % Lymphocytes % Monocytes % Basophils % Differential Comment Platelet Estimate PTT (Actin FS) Puncture Site ABG pH ABG pCO2 at Pt Temp ABG pO2 at Pt Temp ABG HCO3 ABG O2 Sat (Measured) ABG O2 Content ABG Base Excess Issac Test O2 Delivery Device Oxygen Flow Rate Vent Mode Vent Rate Mechanical Rate PEEP Pressure Support Vent Sodium Potassium Chloride Carbon Dioxide Anion Gap BUN Creatinine Creat Clearance w eGFR POC Glucometer 159.71318 172.26256 Random Glucose Calcium Phosphorus Magnesium Total Bilirubin AST ALT Alkaline Phosphatase Total Protein Albumin Pleural Fluid Source Pleural Color Pleural Appearance Pleural WBC Pleural RBC Pleural Neutrophils Pleural Lymphocytes Pleural Monocytes Pleural Macrophages Pleural Mesothelial Pleural Chloride Pleural Total Protein Pleural Albumin Pleural LDH Pleural Glucose Pleural Amylase 41.678 Pleural Cholesterol Pleural Triglycerides 3 08/31/16 08/31/16 08/31/16 05:20 05:20 05:20 WBC 21.3 H D RBC 2.65 L Hgb 7.5 L Hct 24.4 L MCV 92.0 MCHC 30.8 L RDW 17.5 H Plt Count 224 MPV 8.1 Neutrophils % 97.0 H Lymphocytes % 1.0 L D Monocytes % 1.0 L Basophils % 1.0 D Differential Comment Manual diff done Platelet Estimate Adequate PTT (Actin FS) 57.5 H Puncture Site ABG pH ABG pCO2 at Pt Temp ABG pO2 at Pt Temp ABG HCO3 ABG O2 Sat (Measured) ABG O2 Content ABG Base Excess Issac Test O2 Delivery Device Oxygen Flow Rate Vent Mode Vent Rate Mechanical Rate PEEP Pressure Support Vent Sodium 149 H Potassium 4.4 Chloride 106 Carbon Dioxide 38 H Anion Gap 5 L BUN 97 H Creatinine 2.7 H Creat Clearance w eGFR 23.28 POC Glucometer Random Glucose 151 H D Calcium 7.9 L Phosphorus 5.7 H Magnesium 3.3 H Total Bilirubin 0.4 AST 14 L ALT 8 L Alkaline Phosphatase 65 Total Protein 4.8 L Albumin 2.2 L Pleural Fluid Source Pleural Color Pleural Appearance Pleural WBC Pleural RBC Pleural Neutrophils Pleural Lymphocytes Pleural Monocytes Pleural Macrophages Pleural Mesothelial Pleural Chloride Pleural Total Protein Pleural Albumin Pleural LDH Pleural Glucose Pleural Amylase Pleural Cholesterol Pleural Triglycerides 3 08/31/16 08/31/16 07:40 11:15 WBC RBC Hgb Hct MCV MCHC RDW Plt Count MPV Neutrophils % Lymphocytes % Monocytes % Basophils % Differential Comment Platelet Estimate PTT (Actin FS) Puncture Site Left radial Right radial ABG pH 7.21 L* 7.35 ABG pCO2 at Pt Temp 91.2 H* D 65.1 H* D ABG pO2 at Pt Temp 187.0 H* D 60.2 L D ABG HCO3 35.4 H 35.0 H ABG O2 Sat (Measured) 99.6 H* 91.3 ABG O2 Content 16.1 11.4 L ABG Base Excess 5.3 H 8.4 H Issac Test Positive Positive O2 Delivery Device Bipap Bipap 18/8 rr 26 Oxygen Flow Rate 100% 60 Vent Mode S/t Vent Rate 26 Mechanical Rate Bipap PEEP 0.0 0.0 Pressure Support Vent Ipap 18/epap 8 Sodium Potassium Chloride Carbon Dioxide Anion Gap BUN Creatinine Creat Clearance w eGFR POC Glucometer Random Glucose Calcium Phosphorus Magnesium Total Bilirubin AST ALT Alkaline Phosphatase Total Protein Albumin Pleural Fluid Source Pleural Color Pleural Appearance Pleural WBC Pleural RBC Pleural Neutrophils Pleural Lymphocytes Pleural Monocytes Pleural Macrophages Pleural Mesothelial Pleural Chloride Pleural Total Protein Pleural Albumin Pleural LDH Pleural Glucose Pleural Amylase Pleural Cholesterol Pleural Triglycerides HOSPITAL COURSE: Date of Admission:08/23/16 Date of Discharge: 08/31/16 Discharge Summary Reason For Visit: ACUTE-ON CHRONIC RENAL FAILURE,SHORTNESS OF BREATH Current Active Problems Acute and chronic respiratory failure with hypoxia (Acute) Acute kidney injury (Acute) Pneumonia (Acute) Shortness of breath (Acute) Procedures: Principal: pigtail catheter x2 Condition: Critical - Instructions Diet, Activity, Other Instructions: NPO Disposition: TRANSFER ACUTE CARE/OTHER HOSP - Home Medications Comprehensive Discharge Medication List: Ambulatory Orders Aa/Hydrolyzed Collagen, Whey [Lps Neutral Flavor Liquid] 960 ml PO BID 08/11/16 Acetaminophen 650 mg PO Q6H PRN 08/11/16 Albuterol 2.5/Ipratropium 0.5 [Duoneb -] 1 neb IH TID 08/11/16 Aspirin [Aspirin EC] 81 mg PO DAILY 08/11/16 Bupropion HCl [Bupropion Xl] 150 mg PO DAILY 08/11/16 Docusate Sodium [Colace -] 100 mg PO BID 08/11/16 Duloxetine HCl 60 mg PO DAILY 08/11/16 Epoetin Keith [Epogen] 10,000 unit IM [id number] 08/11/16 Ferrous Sulfate 325 mg PO BID 08/11/16 Fluticasone/Vilanterol [Breo Ellipta 100-25 Mcg INH] 1 each IH DAILY 08/11/16 Guaifenesin [Mucinex] 600 mg PO Q12H 08/11/16 Mineral Oil/Hydrophil Petrolat [Aquaphor Healing Ointment] 50 gm TP BID Nystatin Powder [Nystop Powder -] 60 gm TP DAILY 08/11/16 Pantoprazole Sodium [Protonix] 40 mg PO DAILY 08/11/16 Polyethylene Glycol 3350 [Miralax 119 gm Btl -] 17 gm PO DAILY 08/11/16 Sennosides [Evac-U-Gen] 17.2 mg PO DAILY 08/11/16 Sodium Chloride Nasal [place] [[place] Nasal [place] -] 2 spray NS Q12H PRN 08/23 Tamsulosin HCl [Flomax] 0.4 mg PO DAILY 08/11/16 Acetylcysteine Po/INH 20% [Mucomyst 20 Oral / INH Use Only*] 600 mg NEB QIDR # 120 vial 08/21/16 Atorvastatin Ca [Lipitor] 20 mg PO HS #30 tablet 08/21/16 Metoprolol Tartrate [Lopressor -] 25 mg PO BID #60 tablet 08/21/16 Acetaminophen Injection [Ofirmev Injection -] 1,000 mg IVPB Q6H PRN #0 vial Albuterol 0.083% Nebulizer Soni [Ventolin 0.083% Nebulizer Soln -] 1 amp NEB QIDR amp 08/31/16 Ertapenem Sodium [Invanz -] 1 gm IVPB DAILY vial 08/31/16 Heparin - 25,000 unit IV TITR vial 08/31/16 Insulin Sliding Scale [Novolog Vial Sliding Scale -] 1 vial SQ ACHS units 08/31 Methylprednisolone Na Succ [Solu-Medrol -] 40 mg IVPB DAILY vial 08/31/16
--- NOTE | 2016-08-31 13:33 | PN ---
Physical Exam: SUBJECTIVE: Patient seen and examined in ICU bed with spouse at bedside. Patient states "It is easier to breathe" after pigtail insertion. OBJECTIVE: Vital Signs 3 Period Temp Pulse Resp BP Sys/[place] Pulse Ox Last 24 Hr 97.5 F-98 F 81-93 13-25 93-125/51-66 96-100 GENERAL: The patient is awake, alert, and fully oriented, in no acute distress. HEAD: Normal with no signs of trauma. EYES: PERRL, extraocular movements intact, sclera anicteric, conjunctiva clear. ENT: Ears normal, nares patent, oropharynx clear without exudates, moist mucous membranes. NECK: Trachea midline, full range of motion, supple. LUNGS: Breath sounds equal, diminished on auscultation bilaterally, no wheezes, no crackles, no accessory muscle use. Desats to 81% off NIPPV. Speaking full sentences. HEART: Regular rate and rhythm, S1, S2 without murmur, rub or gallop. ABDOMEN: Soft, nontender, nondistended, normoactive bowel sounds, no guarding, no rebound, no hepatosplenomegaly, no masses. EXTREMITIES: 2+ pulses, warm, well-perfused, no edema. NEUROLOGICAL: Cranial nerves II through XII grossly intact. Normal speech, gait not observed. PSYCH: Normal mood, normal affect. SKIN: Warm, dry, normal turgor, no rashes or lesions noted. Laboratory Results - last 24 hr 3 08/30/16 08/30/16 08/30/16 11:27 13:40 14:19 WBC RBC Hgb Hct MCV MCHC RDW Plt Count MPV Neutrophils % Lymphocytes % Monocytes % Basophils % Differential Comment Platelet Estimate PTT (Actin FS) Puncture Site ABG pH ABG pCO2 at Pt Temp ABG pO2 at Pt Temp ABG HCO3 ABG O2 Sat (Measured) ABG O2 Content ABG Base Excess Issac Test O2 Delivery Device Oxygen Flow Rate Vent Mode Vent Rate Mechanical Rate PEEP Pressure Support Vent Sodium Potassium Chloride Carbon Dioxide Anion Gap BUN Creatinine Creat Clearance w eGFR POC Glucometer 94.92915 Random Glucose Calcium Phosphorus Magnesium Total Bilirubin AST ALT Alkaline Phosphatase Total Protein Albumin Pleural Fluid Source Pleural fluid Pleural Color Red Pleural Appearance Cloudy Pleural WBC 230 Pleural RBC 28415 Pleural Neutrophils 2 Pleural Lymphocytes 15 Pleural Monocytes 1 Pleural Macrophages 80 Pleural Mesothelial 3 Pleural Chloride Y Pleural Total Protein 2.974 Pleural Albumin 2 Pleural LDH 156.41 Pleural Glucose 81.979 Pleural Amylase 41.678 Cancelled Pleural Cholesterol 51 Pleural Triglycerides 27 3 08/30/16 08/30/16 08/30/16 14:37 18:31 21:24 WBC RBC Hgb Hct MCV MCHC RDW Plt Count MPV Neutrophils % Lymphocytes % Monocytes % Basophils % Differential Comment Platelet Estimate PTT (Actin FS) Puncture Site ABG pH ABG pCO2 at Pt Temp ABG pO2 at Pt Temp ABG HCO3 ABG O2 Sat (Measured) ABG O2 Content ABG Base Excess Issac Test O2 Delivery Device Oxygen Flow Rate Vent Mode Vent Rate Mechanical Rate PEEP Pressure Support Vent Sodium Potassium Chloride Carbon Dioxide Anion Gap BUN Creatinine Creat Clearance w eGFR POC Glucometer 159.79968 172.63430 Random Glucose Calcium Phosphorus Magnesium Total Bilirubin AST ALT Alkaline Phosphatase Total Protein Albumin Pleural Fluid Source Pleural Color Pleural Appearance Pleural WBC Pleural RBC Pleural Neutrophils Pleural Lymphocytes Pleural Monocytes Pleural Macrophages Pleural Mesothelial Pleural Chloride Pleural Total Protein Pleural Albumin Pleural LDH Pleural Glucose Pleural Amylase 41.678 Pleural Cholesterol Pleural Triglycerides 3 08/31/16 08/31/16 08/31/16 05:20 05:20 05:20 WBC 21.3 H D RBC 2.65 L Hgb 7.5 L Hct 24.4 L MCV 92.0 MCHC 30.8 L RDW 17.5 H Plt Count 224 MPV 8.1 Neutrophils % 97.0 H Lymphocytes % 1.0 L D Monocytes % 1.0 L Basophils % 1.0 D Differential Comment Manual diff done Platelet Estimate Adequate PTT (Actin FS) 57.5 H Puncture Site ABG pH ABG pCO2 at Pt Temp ABG pO2 at Pt Temp ABG HCO3 ABG O2 Sat (Measured) ABG O2 Content ABG Base Excess Issac Test O2 Delivery Device Oxygen Flow Rate Vent Mode Vent Rate Mechanical Rate PEEP Pressure Support Vent Sodium 149 H Potassium 4.4 Chloride 106 Carbon Dioxide 38 H Anion Gap 5 L BUN 97 H Creatinine 2.7 H Creat Clearance w eGFR 23.28 POC Glucometer Random Glucose 151 H D Calcium 7.9 L Phosphorus 5.7 H Magnesium 3.3 H Total Bilirubin 0.4 AST 14 L ALT 8 L Alkaline Phosphatase 65 Total Protein 4.8 L Albumin 2.2 L Pleural Fluid Source Pleural Color Pleural Appearance Pleural WBC Pleural RBC Pleural Neutrophils Pleural Lymphocytes Pleural Monocytes Pleural Macrophages Pleural Mesothelial Pleural Chloride Pleural Total Protein Pleural Albumin Pleural LDH Pleural Glucose Pleural Amylase Pleural Cholesterol Pleural Triglycerides 3 08/31/16 08/31/16 07:40 11:15 WBC RBC Hgb Hct MCV MCHC RDW Plt Count MPV Neutrophils % Lymphocytes % Monocytes % Basophils % Differential Comment Platelet Estimate PTT (Actin FS) Puncture Site Left radial Right radial ABG pH 7.21 L* 7.35 ABG pCO2 at Pt Temp 91.2 H* D 65.1 H* D ABG pO2 at Pt Temp 187.0 H* D 60.2 L D ABG HCO3 35.4 H 35.0 H ABG O2 Sat (Measured) 99.6 H* 91.3 ABG O2 Content 16.1 11.4 L ABG Base Excess 5.3 H 8.4 H Issac Test Positive Positive O2 Delivery Device Bipap Bipap 18/8 rr 26 Oxygen Flow Rate 100% 60 Vent Mode S/t Vent Rate 26 Mechanical Rate Bipap PEEP 0.0 0.0 Pressure Support Vent Ipap 18/epap 8 Sodium Potassium Chloride Carbon Dioxide Anion Gap BUN Creatinine Creat Clearance w eGFR POC Glucometer Random Glucose Calcium Phosphorus Magnesium Total Bilirubin AST ALT Alkaline Phosphatase Total Protein Albumin Pleural Fluid Source Pleural Color Pleural Appearance Pleural WBC Pleural RBC Pleural Neutrophils Pleural Lymphocytes Pleural Monocytes Pleural Macrophages Pleural Mesothelial Pleural Chloride Pleural Total Protein Pleural Albumin Pleural LDH Pleural Glucose Pleural Amylase Pleural Cholesterol Pleural Triglycerides Active Medications 3 Generic Name Dose Route Start Last Admin Trade Name Freq PRN Reason Stop Dose Admin Acetaminophen 1,000 mg 08/31/16 11:38 08/31/16 13:29 Ofirmev Injection - IVPB 09/01/16 05:39 1,000 mg Q6H PRN Administration FEVER OR PAIN Acetylcysteine 600 mg 08/28/16 18:00 08/31/16 12:47 Mucomyst 20 Oral / Inh Use Only* NEB 600 mg QIDR LESLEE Administration Albuterol Sulfate 1 amp 08/28/16 18:00 08/31/16 12:48 Ventolin 0.083% Nebulizer Soln - NEB 1 amp QIDR LESLEE Administration Atorvastatin Calcium 20 mg 08/28/16 22:00 08/30/16 21:09 Lipitor - PO 20 mg HS LESLEE Administration Bupropion HCl 150 mg 08/29/16 10:00 08/31/16 11:51 Wellbutrin Xl - PO Not Given DAILY LESLEE Docusate Sodium 100 mg 08/28/16 22:00 08/31/16 11:49 Colace - PO Not Given BID [facility] Duloxetine HCl 60 mg 08/29/16 10:00 08/31/16 11:49 Cymbalta - PO Not Given DAILY [facility] Epoetin Keith 10,000 unit 08/30/16 10:00 08/30/16 10:21 Procrit - IVPUSH 10,000 unit [id number]@[email or web address] LESLEE Administration Ferrous Sulfate 325 mg 08/28/16 22:00 08/31/16 11:49 Feosol - PO Not Given BID [facility] Guaifenesin 600 mg 08/28/16 14:22 Mucinex - PO BID PRN Heparin Sodium (Porcine) 1,000 unit 08/28/16 14:22 Heparin - IVPUSH PRN PRN Heparin Heparin Sodium (Porcine) 5,000 unit 08/28/16 14:22 Heparin - IVPUSH PRN PRN Heparin Heparin Sodium (Porcine) 25, 500 mls @ 20 mls/hr 08/28/16 14:22 08/31/16 09:30 000 unit/ Sodium Chloride IV 16 mls/hr TITR LESLEE Administration Protocol 1,000 UNIT/HR Ertapenem 1 gm/ Sodium 50 mls @ 100 mls/hr 08/30/16 10:00 08/31/16 09:21 Chloride IVPB 100 mls/hr DAILY LESLEE Administration Protocol Dextrose 1,000 mls @ 83 mls/hr 08/30/16 11:45 08/31/16 11:46 D5w - IV 83 mls/hr Q12H LESLEE Administration Pantoprazole Sodium 100 mls @ 200 mls/hr 08/31/16 12:00 08/31/16 12:25 Protonix 40mg Ivpb (Pre-Docked) IVPB 200 mls/hr DAILY LESLEE Administration Insulin Aspart 1 vial 08/28/16 16:30 08/31/16 11:46 Novolog Vial Sliding Scale - SQ 3 units ACHS LESLEE Administration Protocol Methylprednisolone Sodium Succinate 40 mg 08/31/16 12:00 08/31/16 12:24 Solu-Medrol - IVPB 40 mg DAILY LESLEE Administration Metoprolol Tartrate 25 mg 08/28/16 22:00 08/31/16 11:50 Lopressor - PO Not Given BID [facility] Morphine Sulfate 2 mg 08/29/16 23:05 08/29/16 23:15 Morphine Injection - IVPUSH 2 mg Q4H PRN Administration PAIN Nystatin 1 applic 08/29/16 10:00 08/31/16 11:30 Nystop Powder - TP 1 applic DAILY LESLEE Administration Polyethylene Glycol 17 gm 08/29/16 10:00 08/31/16 11:50 Miralax (For Daily Use) - PO Not Given DAILY LESLEE Senna 2 tab 08/28/16 14:22 Senna - PO DAILY PRN CONSTIPATION Sodium Chloride 2 spray 08/28/16 14:22 [place] Nasal [place] - NS Q12H PRN NASAL CONGESTION Tamsulosin HCl 0.4 mg 08/29/16 08:30 08/31/16 11:48 Flomax - PO Not Given DAILY@0830 [facility] Imaging: CXR read per MD Hernandez- Right pleural effusion resolved with pigtail catheter in place. Left effusion remains unchanged. ASSESSMENT/PLAN: A: This is a 75 year old male with h/o HTN, hyperlipidemia, CAD s/p stent x2 ( 2014), diastolic heart failure, afib, COPD, respiratory failure requiring intubation (02/2016-04/2016), GI bleed, h/o DVT and PE, urinary retention with chronic lilly catheter who presented to the ED with shortness of breath, insomnia and refusal to take any po medications. P: Acute on Chronic hypoxic respiratory failure -Aspiration PNA vs. pneumonitis -pigtail placed 08/30/16 -continue Ertapenam 1g -prednisone changed to Solu-medrol 40mg to maintain NIPPV -continue NIPPV as pt desaturates off NIPPV -titrate NIPPV per pulm -ABG's per pulm -pulmonology following Pleural effusion -right resolved s/p pigtail -left side unchanged -continue ertapenam per ID DVT on heparin bridge to Eliquis (held for chest tube placement) HTN- continue home meds Afib- heparin gtt, continue Lopressor GI bleed - Stool guiac per GI positive - S/p 1u PRBC on 08/26 - Monitor H/H closely, transfuse if Hgb below 7.0 - Patient continues to refuse GI workup including colonoscopy, EGD - Appreciate GI consult Hypernatremia -nephrology following -water deficit 2.3 -continue D5W@84 DM -FS QACHS -SS insulin PPX -continue heparin gtt -continue PPI F/E/N -D5W@84 -remains NPO -discussion with patient and spouse regarding need for NGT/PEG. refusing at this time Dispo: Patient currently needs continued inpatient treatment for acute medical condition. Case discussed with MD George at [facility] . Requests titration of NIPPV before he will accept patient. Code Status: FULL CODE Visit type - Emergency Visit Emergency Visit: Yes ED Registration Date: 08/23/16 Care time: The patient presented to the Emergency Department on the above date and was hospitalized for further evaluation of their emergent condition. - New Patient This patient is new to me today: Yes Date on this admission: 09/01/16 - Critical Care Critical Care patient: Yes Total Critical Care Time (in minutes): 30 Critical Care Statement: The care of this patient involved high complexity decision making to prevent further life threatening deterioration of the patient 's condition and/or to evalute & treat vital organ system(s) failure or risk of failure.
--- NOTE | 2016-08-31 15:05 | PN ---
Teaching Attending Note Name of Resident: Alan Glover ATTENDING PHYSICIAN STATEMENT I saw and evaluated the patient. I reviewed the resident's note and discussed the case with the resident. I agree with the resident's findings and plan as documented. SUBJECTIVE: Patient seen and examined in the ICU. Drowsy on NIPPV. Noted again acute on chronic hypercapnea on ABG. Mask was adjusted for leak. No pressors. CXR: bilateral pigtails intact / improved effusion on the right / decreased effusion on the left OBJECTIVE: Intake & Output 08/28/16 08/29/16 08/30/16 08/31/16 23:59 23:59 23:59 23:59 Intake Total 164 935 2854 1034.5 Output Total 1500 1550 2720 355 Balance -906 -816 -1508 679.5 Weight 206 lb 2.115 oz 205 lb 4 oz 202 lb 2 oz 201 lb 0.985 oz Last Vital Signs Temp Pulse Resp BP Pulse Ox 97.3 F L 88 14 110/55 96 08/31/16 13:48 08/31/16 13:48 08/31/16 13:48 08/31/16 13:48 08/31/16 12:27 Active Medications Acetaminophen (Ofirmev Injection -) 1,000 mg IVPB Q6H PRN PRN Reason: FEVER OR PAIN Stop: 09/01/16 05:39 Last Admin: 08/31/16 13:29 Dose: 1,000 mg Acetylcysteine (Mucomyst 20 Oral / Inh Use Only*) 600 mg NEB QIDR [facility] Last Admin: 08/31/16 12:47 Dose: 600 mg Albuterol Sulfate (Ventolin 0.083% Nebulizer Soln -) 1 amp NEB QIDR [facility] Last Admin: 08/31/16 12:48 Dose: 1 amp Atorvastatin Calcium (Lipitor -) 20 mg PO HS [facility] Last Admin: 08/30/16 21:09 Dose: 20 mg Bupropion HCl (Wellbutrin Xl -) 150 mg PO DAILY [facility] Last Admin: 08/31/16 11:51 Dose: Not Given Docusate Sodium (Colace -) 100 mg PO BID [facility] Last Admin: 08/31/16 11:49 Dose: Not Given Duloxetine HCl (Cymbalta -) 60 mg PO DAILY [facility] Last Admin: 08/31/16 11:49 Dose: Not Given Epoetin Keith (Procrit -) 10,000 unit IVPUSH MoWeFr@10 [facility] Last Admin: 08/30/16 10:21 Dose: 10,000 unit Ferrous Sulfate (Feosol -) 325 mg PO BID [facility] Last Admin: 08/31/16 11:49 Dose: Not Given Guaifenesin (Mucinex -) 600 mg PO BID PRN Heparin Sodium (Porcine) (Heparin -) 1,000 unit IVPUSH PRN PRN PRN Reason: Heparin Heparin Sodium (Porcine) (Heparin -) 5,000 unit IVPUSH PRN PRN PRN Reason: Heparin Heparin Sodium (Porcine) 25, (000 unit/ Sodium Chloride) 500 mls @ 20 mls/hr IV TITR LESLEE; 1,000 UNIT/HR PRN Reason: Protocol Last Admin: 08/31/16 09:30 Dose: 16 mls/hr Ertapenem 1 gm/ Sodium (Chloride) 50 mls @ 100 mls/hr IVPB DAILY [facility] PRN Reason: Protocol Last Admin: 08/31/16 09:21 Dose: 100 mls/hr Dextrose (D5w -) 1,000 mls @ 83 mls/hr IV Q12H [facility] Last Admin: 08/31/16 11:46 Dose: 83 mls/hr Pantoprazole Sodium (Protonix 40mg Ivpb (Pre-Docked)) 100 mls @ 200 mls/hr IVPB DAILY [facility] Last Admin: 08/31/16 12:25 Dose: 200 mls/hr Insulin Aspart (Novolog Vial Sliding Scale -) 1 vial SQ ACHS [facility] PRN Reason: Protocol Last Admin: 08/31/16 11:46 Dose: 3 units Methylprednisolone Sodium Succinate (Solu-Medrol -) 40 mg IVPB DAILY [facility] Last Admin: 08/31/16 12:24 Dose: 40 mg Metoprolol Tartrate (Lopressor -) 25 mg PO BID [facility] Last Admin: 08/31/16 11:50 Dose: Not Given Morphine Sulfate (Morphine Injection -) 2 mg IVPUSH Q4H PRN PRN Reason: PAIN Last Admin: 08/29/16 23:15 Dose: 2 mg Nystatin (Nystop Powder -) 1 applic TP DAILY [facility] Last Admin: 08/31/16 11:30 Dose: 1 applic Polyethylene Glycol (Miralax (For Daily Use) -) 17 gm PO DAILY [facility] Last Admin: 08/31/16 11:50 Dose: Not Given Senna (Senna -) 2 tab PO DAILY PRN PRN Reason: CONSTIPATION Sodium Chloride ([place] Nasal [place] -) 2 spray NS Q12H PRN PRN Reason: NASAL CONGESTION Tamsulosin HCl (Flomax -) 0.4 mg PO DAILY@0830 [facility] Last Admin: 08/31/16 11:48 Dose: Not Given GENERAL: Drowsy on NIPPV HEENT: (-) icterus, dry membranes LUNGS: Scattered bilateral ronchi & bibasilar crackles noted. No wheezes. HEART: S1 and S2, (+) ESM ABDOMEN: Soft, obese, NT, ND, no guarding, no rebound, no masses. No hepatomegaly or splenomegaly. EXTREMITIES: 2+ pulses, (+) Edema NEUROLOGICAL: Non-focal SKIN: Bilateral lower ext with skin discoloration with dark yellow patches and venous stasis. No signs of fluid overload. Laboratory Results - last 24 hr 08/30/16 08/30/16 08/30/16 11:27 13:40 14:37 WBC RBC Hgb Hct MCV MCHC RDW Plt Count MPV Neutrophils % Lymphocytes % Monocytes % Basophils % Differential Comment Platelet Estimate PTT (Actin FS) Puncture Site ABG pH ABG pCO2 at Pt Temp ABG pO2 at Pt Temp ABG HCO3 ABG O2 Sat (Measured) ABG O2 Content ABG Base Excess Issac Test O2 Delivery Device Oxygen Flow Rate Vent Mode Vent Rate Mechanical Rate PEEP Pressure Support Vent Sodium Potassium Chloride Carbon Dioxide Anion Gap BUN Creatinine Creat Clearance w eGFR POC Glucometer 94.24676 Random Glucose Calcium Phosphorus Magnesium Total Bilirubin AST ALT Alkaline Phosphatase Total Protein Albumin Pleural Fluid Source Pleural fluid Pleural Color Red Pleural Appearance Cloudy Pleural WBC 230 Pleural RBC [address]842 Pleural Neutrophils 2 Pleural Lymphocytes 15 Pleural Monocytes 1 Pleural Macrophages 80 Pleural Mesothelial 3 Pleural Chloride Y Pleural Total Protein 2.974 Pleural Albumin 2 Pleural LDH 156.41 Pleural Glucose 81.979 Pleural Amylase 41.678 41.678 Pleural Cholesterol 51 Pleural Triglycerides 27 08/30/16 08/30/16 08/31/16 18:31 21:24 05:20 WBC RBC Hgb Hct MCV MCHC RDW Plt Count MPV Neutrophils % Lymphocytes % Monocytes % Basophils % Differential Comment Platelet Estimate PTT (Actin FS) 57.5 H Puncture Site ABG pH ABG pCO2 at Pt Temp ABG pO2 at Pt Temp ABG HCO3 ABG O2 Sat (Measured) ABG O2 Content ABG Base Excess Issac Test O2 Delivery Device Oxygen Flow Rate Vent Mode Vent Rate Mechanical Rate PEEP Pressure Support Vent Sodium Potassium Chloride Carbon Dioxide Anion Gap BUN Creatinine Creat Clearance w eGFR POC Glucometer 159.28424 172.68772 Random Glucose Calcium Phosphorus Magnesium Total Bilirubin AST ALT Alkaline Phosphatase Total Protein Albumin Pleural Fluid Source Pleural Color Pleural Appearance Pleural WBC Pleural RBC Pleural Neutrophils Pleural Lymphocytes Pleural Monocytes Pleural Macrophages Pleural Mesothelial Pleural Chloride Pleural Total Protein Pleural Albumin Pleural LDH Pleural Glucose Pleural Amylase Pleural Cholesterol Pleural Triglycerides 08/31/16 08/31/16 08/31/16 05:20 05:20 07:40 WBC 21.3 H D RBC 2.65 L Hgb 7.5 L Hct 24.4 L MCV 92.0 MCHC 30.8 L RDW 17.5 H Plt Count 224 MPV 8.1 Neutrophils % 97.0 H Lymphocytes % 1.0 L D Monocytes % 1.0 L Basophils % 1.0 D Differential Comment Manual diff done Platelet Estimate Adequate PTT (Actin FS) Puncture Site Left radial ABG pH 7.21 L* ABG pCO2 at Pt Temp 91.2 H* D ABG pO2 at Pt Temp 187.0 H* D ABG HCO3 35.4 H ABG O2 Sat (Measured) 99.6 H* ABG O2 Content 16.1 ABG Base Excess 5.3 H Issac Test Positive O2 Delivery Device Bipap Oxygen Flow Rate 100% Vent Mode S/t Vent Rate 26 Mechanical Rate Bipap PEEP 0.0 Pressure Support Vent Ipap 18/epap 8 Sodium 149 H Potassium 4.4 Chloride 106 Carbon Dioxide 38 H Anion Gap 5 L BUN 97 H Creatinine 2.7 H Creat Clearance w eGFR 23.28 POC Glucometer Random Glucose 151 H D Calcium 7.9 L Phosphorus 5.7 H Magnesium 3.3 H Total Bilirubin 0.4 AST 14 L ALT 8 L Alkaline Phosphatase 65 Total Protein 4.8 L Albumin 2.2 L Pleural Fluid Source Pleural Color Pleural Appearance Pleural WBC Pleural RBC Pleural Neutrophils Pleural Lymphocytes Pleural Monocytes Pleural Macrophages Pleural Mesothelial Pleural Chloride Pleural Total Protein Pleural Albumin Pleural LDH Pleural Glucose Pleural Amylase Pleural Cholesterol Pleural Triglycerides 08/31/16 11:15 WBC RBC Hgb Hct MCV MCHC RDW Plt Count MPV Neutrophils % Lymphocytes % Monocytes % Basophils % Differential Comment Platelet Estimate PTT (Actin FS) Puncture Site Right radial ABG pH 7.35 ABG pCO2 at Pt Temp 65.1 H* D ABG pO2 at Pt Temp 60.2 L D ABG HCO3 35.0 H ABG O2 Sat (Measured) 91.3 ABG O2 Content 11.4 L ABG Base Excess 8.4 H Issac Test Positive O2 Delivery Device Bipap 18/8 rr 26 Oxygen Flow Rate 60 Vent Mode Vent Rate Mechanical Rate PEEP 0.0 Pressure Support Vent Sodium Potassium Chloride Carbon Dioxide Anion Gap BUN Creatinine Creat Clearance w eGFR POC Glucometer Random Glucose Calcium Phosphorus Magnesium Total Bilirubin AST ALT Alkaline Phosphatase Total Protein Albumin Pleural Fluid Source Pleural Color Pleural Appearance Pleural WBC Pleural RBC Pleural Neutrophils Pleural Lymphocytes Pleural Monocytes Pleural Macrophages Pleural Mesothelial Pleural Chloride Pleural Total Protein Pleural Albumin Pleural LDH Pleural Glucose Pleural Amylase Pleural Cholesterol Pleural Triglycerides ASSESSMENT/PLAN: Acute on chronic Respiratory Failure HTN HLD CAD S/P PCI Diastolic CHF AFIB COPD DVT / PE NIPPV was adjusted an repeat ABG has shown improvement Diuresis as tolerated Aspiration precautions Prednisone ABX per ID BD [place] Normal transfusion thresholds Glycemic control For LTAC transfer Dr Vasquez Critical care time spent in reviewing chart, evaluating patient and formulating plan 35 min
--- NOTE | 2016-08-31 16:19 | PATH ---
Cytology Non-Gynecological Report Patient Name: NETTE SIMMONS Med. Rec. #: [id number] /Age/Gender: 1940 (Age: 75) / M Account: [id number] Location: ICU [facility] Taken: 08/30/2016 Received: 08/30/2016 Reported: 08/31/2016 Physicians: Che French AGABeba Specimen(s) Received PLEURAL FLUID Clinical History Pleural effusion Final Diagnosis PLEURAL FLUID, THORACENTESIS: SATISFACTORY FOR EVALUATION. FEW ATYPICAL CELLS PRESENT, FAVOR REACTIVE MESOTHELIAL CELLS. BACKGROUND REACTIVE MESOTHELIAL CELLS, HISTIOCYTES AND LYMPHOCYTES. Comment: Immunohistochemical stains performed and interpreted on the cell block [facility] show the following: the cells in the effusion are negative for BerEp4/EMMA and TTF1 immunostains; CK7 highlights mesothelial cells. These results are supportive of the interpretation above. Electronically Signed French Amor M.D. Gross Description Received is 50 cc of pinkish fluid in 50% alcohol. One cytofunnel slide and one cell block are made.
--- NOTE | 2016-08-31 20:05 | PN ---
Progress Note, Physician History of Present Illness: patient stable patient tapped and pig tail catheter placed no issues during procedure - Current Medication List Current Medications: Active Medications Acetaminophen (Ofirmev Injection -) 1,000 mg IVPB Q6H PRN PRN Reason: FEVER OR PAIN Stop: 09/01/16 05:39 Last Admin: 08/31/16 13:29 Dose: 1,000 mg Acetylcysteine (Mucomyst 20 Oral / Inh Use Only*) 600 mg NEB QIDR [facility] Last Admin: 08/31/16 18:25 Dose: 600 mg Albuterol Sulfate (Ventolin 0.083% Nebulizer Soln -) 1 amp NEB QIDR [facility] Last Admin: 08/31/16 18:25 Dose: 1 amp Atorvastatin Calcium (Lipitor -) 20 mg PO HS [facility] Last Admin: 08/30/16 21:09 Dose: 20 mg Bupropion HCl (Wellbutrin Xl -) 150 mg PO DAILY [facility] Last Admin: 08/31/16 11:51 Dose: Not Given Docusate Sodium (Colace -) 100 mg PO BID [facility] Last Admin: 08/31/16 11:49 Dose: Not Given Duloxetine HCl (Cymbalta -) 60 mg PO DAILY [facility] Last Admin: 08/31/16 11:49 Dose: Not Given Epoetin Keith (Procrit -) 10,000 unit IVPUSH MoWeFr@10 [facility] Last Admin: 08/30/16 10:21 Dose: 10,000 unit Ferrous Sulfate (Feosol -) 325 mg PO BID [facility] Last Admin: 08/31/16 11:49 Dose: Not Given Guaifenesin (Mucinex -) 600 mg PO BID PRN Heparin Sodium (Porcine) (Heparin -) 1,000 unit IVPUSH PRN PRN PRN Reason: Heparin Heparin Sodium (Porcine) (Heparin -) 5,000 unit IVPUSH PRN PRN PRN Reason: Heparin Heparin Sodium (Porcine) 25, (000 unit/ Sodium Chloride) 500 mls @ 20 mls/hr IV TITR LESLEE; 1,000 UNIT/HR PRN Reason: Protocol Last Admin: 08/31/16 19:16 Dose: Not Given Ertapenem 1 gm/ Sodium (Chloride) 50 mls @ 100 mls/hr IVPB DAILY [facility] PRN Reason: Protocol Last Admin: 08/31/16 09:21 Dose: 100 mls/hr Dextrose (D5w -) 1,000 mls @ 83 mls/hr IV Q12H [facility] Last Admin: 08/31/16 11:46 Dose: 83 mls/hr Pantoprazole Sodium (Protonix 40mg Ivpb (Pre-Docked)) 100 mls @ 200 mls/hr IVPB DAILY [facility] Last Admin: 08/31/16 12:25 Dose: 200 mls/hr Insulin Aspart (Novolog Vial Sliding Scale -) 1 vial SQ ACHS [facility] PRN Reason: Protocol Last Admin: 08/31/16 19:20 Dose: 8 units Methylprednisolone Sodium Succinate (Solu-Medrol -) 40 mg IVPB DAILY [facility] Last Admin: 08/31/16 12:24 Dose: 40 mg Metoprolol Tartrate (Lopressor -) 25 mg PO BID [facility] Last Admin: 08/31/16 11:50 Dose: Not Given Morphine Sulfate (Morphine Injection -) 2 mg IVPUSH Q4H PRN PRN Reason: PAIN Last Admin: 08/29/16 23:15 Dose: 2 mg Nystatin (Nystop Powder -) 1 applic TP DAILY [facility] Last Admin: 08/31/16 11:30 Dose: 1 applic Polyethylene Glycol (Miralax (For Daily Use) -) 17 gm PO DAILY [facility] Last Admin: 08/31/16 11:50 Dose: Not Given Senna (Senna -) 2 tab PO DAILY PRN PRN Reason: CONSTIPATION Sodium Chloride ([place] Nasal [place] -) 2 spray NS Q12H PRN PRN Reason: NASAL CONGESTION Tamsulosin HCl (Flomax -) 0.4 mg PO DAILY@0830 [facility] Last Admin: 08/31/16 11:48 Dose: Not Given - Objective Vital Signs: Vital Signs Temperature 97.3 F L 08/31/16 18:00 Pulse Rate 93 H 08/31/16 18:00 Respiratory Rate 13 08/31/16 18:00 Blood Pressure 126/57 08/31/16 18:00 O2 Sat by Pulse Oximetry (%) 96 08/31/16 12:27 Constitutional: Yes: No Distress, Calm Cardiovascular: Yes: Pulse Irregular Respiratory: Yes: Regular, On BiPap, Poor Air Entry Gastrointestinal: Yes: Normal Bowel Sounds, Soft Musculoskeletal: Yes: Other Extremities: Yes: Other Neurological: Yes: Alert, Oriented Psychiatric: Yes: Alert, Oriented Labs: CBC, BMP 05/25/17 05:20 08/31/16 05:20 INR, PTT INR 1.22 (0.82-1.09) H 08/27/16 06:00 - ....Imaging Chest X-ray: Report Reviewed, Image Reviewed Assessment/Plan - Problems (1) Acute and chronic respiratory failure with hypoxia Code(s): J96.21 - ACUTE AND CHRONIC RESPIRATORY FAILURE WITH HYPOXIA (2) Pneumonia Code(s): J18.9 - PNEUMONIA, UNSPECIFIED ORGANISM Qualifiers: Pneumonia type: due to unspecified organism Laterality: left Lung location: lower lobe of lung Qualified Code(s): J18.1 - Lobar pneumonia, unspecified organism (3) Pleural effusion Code(s): J90 - PLEURAL EFFUSION, NOT ELSEWHERE CLASSIFIED (4) Acute on chronic diastolic (congestive) heart failure Code(s): I50.33 - ACUTE ON CHRONIC DIASTOLIC (CONGESTIVE) HEART FAILURE (5) COPD (chronic obstructive pulmonary disease) Code(s): J44.9 - CHRONIC OBSTRUCTIVE PULMONARY DISEASE, UNSPECIFIED (6) Renal failure (ARF), acute on chronic Code(s): N17.9 - ACUTE KIDNEY FAILURE, UNSPECIFIED N18.9 - CHRONIC KIDNEY DISEASE, UNSPECIFIED (7) Diabetes Code(s): E11.9 - TYPE 2 DIABETES MELLITUS WITHOUT COMPLICATIONS Qualifiers: Diabetes mellitus type: type 2 Diabetes mellitus complication status: with kidney complications Diabetes mellitus complication detail: with chronic kidney disease (8) Atrial fibrillation Code(s): I48.91 - UNSPECIFIED ATRIAL FIBRILLATION 9 bilateral cellulitis of the legs plan continue current mgmt patient tapped pig tail catheter placed now will monitor drainage await for other cx report cc time 40 min
--- NOTE | 2016-08-31 20:09 | PN ---
Progress Note, Physician History of Present Illness: patient stable on bipap improving still draining - Current Medication List Current Medications: Active Medications Acetaminophen (Ofirmev Injection -) 1,000 mg IVPB Q6H PRN PRN Reason: FEVER OR PAIN Stop: 09/01/16 05:39 Last Admin: 08/31/16 13:29 Dose: 1,000 mg Acetylcysteine (Mucomyst 20 Oral / Inh Use Only*) 600 mg NEB QIDR [facility] Last Admin: 08/31/16 18:25 Dose: 600 mg Albuterol Sulfate (Ventolin 0.083% Nebulizer Soln -) 1 amp NEB QIDR [facility] Last Admin: 08/31/16 18:25 Dose: 1 amp Atorvastatin Calcium (Lipitor -) 20 mg PO HS [facility] Last Admin: 08/30/16 21:09 Dose: 20 mg Bupropion HCl (Wellbutrin Xl -) 150 mg PO DAILY [facility] Last Admin: 08/31/16 11:51 Dose: Not Given Docusate Sodium (Colace -) 100 mg PO BID [facility] Last Admin: 08/31/16 11:49 Dose: Not Given Duloxetine HCl (Cymbalta -) 60 mg PO DAILY [facility] Last Admin: 08/31/16 11:49 Dose: Not Given Epoetin Keith (Procrit -) 10,000 unit IVPUSH MoWeFr@10 [facility] Last Admin: 08/30/16 10:21 Dose: 10,000 unit Ferrous Sulfate (Feosol -) 325 mg PO BID [facility] Last Admin: 08/31/16 11:49 Dose: Not Given Guaifenesin (Mucinex -) 600 mg PO BID PRN Heparin Sodium (Porcine) (Heparin -) 1,000 unit IVPUSH PRN PRN PRN Reason: Heparin Heparin Sodium (Porcine) (Heparin -) 5,000 unit IVPUSH PRN PRN PRN Reason: Heparin Heparin Sodium (Porcine) 25, (000 unit/ Sodium Chloride) 500 mls @ 20 mls/hr IV TITR LESLEE; 1,000 UNIT/HR PRN Reason: Protocol Last Admin: 08/31/16 19:16 Dose: Not Given Ertapenem 1 gm/ Sodium (Chloride) 50 mls @ 100 mls/hr IVPB DAILY [facility] PRN Reason: Protocol Last Admin: 08/31/16 09:21 Dose: 100 mls/hr Dextrose (D5w -) 1,000 mls @ 83 mls/hr IV Q12H [facility] Last Admin: 08/31/16 11:46 Dose: 83 mls/hr Pantoprazole Sodium (Protonix 40mg Ivpb (Pre-Docked)) 100 mls @ 200 mls/hr IVPB DAILY [facility] Last Admin: 08/31/16 12:25 Dose: 200 mls/hr Insulin Aspart (Novolog Vial Sliding Scale -) 1 vial SQ ACHS [facility] PRN Reason: Protocol Last Admin: 08/31/16 19:20 Dose: 8 units Methylprednisolone Sodium Succinate (Solu-Medrol -) 40 mg IVPB DAILY [facility] Last Admin: 08/31/16 12:24 Dose: 40 mg Metoprolol Tartrate (Lopressor -) 25 mg PO BID [facility] Last Admin: 08/31/16 11:50 Dose: Not Given Morphine Sulfate (Morphine Injection -) 2 mg IVPUSH Q4H PRN PRN Reason: PAIN Last Admin: 08/29/16 23:15 Dose: 2 mg Nystatin (Nystop Powder -) 1 applic TP DAILY [facility] Last Admin: 08/31/16 11:30 Dose: 1 applic Polyethylene Glycol (Miralax (For Daily Use) -) 17 gm PO DAILY [facility] Last Admin: 08/31/16 11:50 Dose: Not Given Senna (Senna -) 2 tab PO DAILY PRN PRN Reason: CONSTIPATION Sodium Chloride ([place] Nasal [place] -) 2 spray NS Q12H PRN PRN Reason: NASAL CONGESTION Tamsulosin HCl (Flomax -) 0.4 mg PO DAILY@0830 [facility] Last Admin: 08/31/16 11:48 Dose: Not Given - Objective Vital Signs: Vital Signs Temperature 97.3 F L 08/31/16 18:00 Pulse Rate 93 H 08/31/16 18:00 Respiratory Rate 13 08/31/16 18:00 Blood Pressure 126/57 08/31/16 18:00 O2 Sat by Pulse Oximetry (%) 96 08/31/16 12:27 Constitutional: Yes: Calm, Obese Cardiovascular: Yes: Pulse Irregular Respiratory: Yes: On BiPap, Poor Air Entry, Other (bilateral pig tails) Gastrointestinal: Yes: Normal Bowel Sounds Musculoskeletal: Yes: Other Extremities: Yes: Other Neurological: Yes: Alert, Oriented Psychiatric: Yes: Alert, Oriented Labs: CBC, BMP 08/31/16 05:20 08/31/16 05:20 INR, PTT INR 1.22 (0.82-1.09) H 08/27/16 06:00 - ....Imaging Chest X-ray: Report Reviewed, Image Reviewed Assessment/Plan - Problems (1) Acute and chronic respiratory failure with hypoxia Code(s): J96.21 - ACUTE AND CHRONIC RESPIRATORY FAILURE WITH HYPOXIA (2) Pneumonia Code(s): J18.9 - PNEUMONIA, UNSPECIFIED ORGANISM Qualifiers: Pneumonia type: due to unspecified organism Laterality: left Lung location: lower lobe of lung Qualified Code(s): J18.1 - Lobar pneumonia, unspecified organism (3) Pleural effusion Code(s): J90 - PLEURAL EFFUSION, NOT ELSEWHERE CLASSIFIED (4) Acute on chronic diastolic (congestive) heart failure Code(s): I50.33 - ACUTE ON CHRONIC DIASTOLIC (CONGESTIVE) HEART FAILURE (5) COPD (chronic obstructive pulmonary disease) Code(s): J44.9 - CHRONIC OBSTRUCTIVE PULMONARY DISEASE, UNSPECIFIED (6) Renal failure (ARF), acute on chronic Code(s): N17.9 - ACUTE KIDNEY FAILURE, UNSPECIFIED N18.9 - CHRONIC KIDNEY DISEASE, UNSPECIFIED (7) Diabetes Code(s): E11.9 - TYPE 2 DIABETES MELLITUS WITHOUT COMPLICATIONS Qualifiers: Diabetes mellitus type: type 2 Diabetes mellitus complication status: with kidney complications Diabetes mellitus complication detail: with chronic kidney disease (8) Atrial fibrillation Code(s): I48.91 - UNSPECIFIED ATRIAL FIBRILLATION 9 bilateral cellulitis of the legs plan continue current mgmt patient tapped pig tail catheter in place will monitor drainage await for other cx report cc time 40 min
[2016-08-31] MEDS: morphine CARPU-JECT 2 MG/1 ML DISP.SYRIN IVPUSH PRN (22:24)
[2016-08-31] MEDS: ATORVASTATIN CA 20 MG TABLET (FP) PO SCH (22:24)
[2016-09-01] MEDS: DEXTROSE 5%-WATER - 1,000 ML IV SCH
[2016-09-01] MEDS: morphine CARPU-JECT 2 MG/1 ML DISP.SYRIN IVPUSH PRN ×2 (03:12→07:28)
[2016-09-01 06:39] LABS: MCH 28.2 pg (25.7-33.7); MCHC 31.1 g/dl (32.0-35.9); MEAN CELL VOLUME 90.6 fl (80-96); MEAN PLT VOLUME 7.7 fl (7.5-11.1); PLATELET COUNT 205 K/MM3 (134-434); RDW 17.2 % (11.9-15.9); WHITE BLOOD COUNT 14.9 K/mm3 (4.0-10.0)
[2016-09-01] MEDS: ACETYLCYSTEINE 20% 200MG/ML 4 ML VIAL *FOR ORAL / INH USE ONLY NEB SCH ×3 (06:47→17:10)
[2016-09-01] MEDS: ALBUTEROL SO4 0.083% IH SOL 2.5 MG/3 ML VIAL.NEB. NEB SCH ×3 (06:47→17:10)
[2016-09-01 07:06] LABS: CALCIUM 7.9 mg/dL (8.5-10.1); CREATININE 2.3 mg/dL (0.7-1.3); MAGNESIUM 3.1 mg/dL (1.8-2.4); PHOSPHOROUS 4.3 mg/dL (2.5-4.9)
[2016-09-01] MEDS ORDERED: LORazepam 2 MG/ML SDV VIAL ONE (07:08)
[2016-09-01] MEDS ORDERED: LORAZEPAM CARPU-JECT 2 MG/ML DISP.SYRIN IVPUSH ONE (07:10)
[2016-09-01 07:12] LABS: ARTERIAL BLOOD GAS BASE EXCESS 9.3 meq/l (-2-2); ARTERIAL BLOOD GAS HCO3 35.3 meq/L (22-26); ARTERIAL BLOOD GAS pH 7.38 (7.35-7.45)
[2016-09-01] MEDS: INSULIN SLIDING SCALE (NOVOLOG) 1 VIAL SQ SCH ×3 (07:27→23:37)
[2016-09-01] MEDS ORDERED: PROPOFOL 100 ML ONE ×2 (07:43→19:43)
[2016-09-01 08:09] LABS: ALLENS TEST POSITIVE; ART PUNCT SITE RIGHT RADIAL; LPM/O2% 100%; MECH. VENT. Y; PT. ON O2? YES; TYPE OF O2 BIPAP; VENT RATE 26
[2016-09-01 08:10] LABS: ARTERIAL BLOOD GAS PO2 38.6 mmHg (70-100); VT/PRESS 16
--- NOTE | 2016-09-01 08:26 | PN ---
Progress Note, Physician Chief Complaint: TELE: reviewed. NSR, periods of sinus tachycardia. APCs, frequent History of Present Illness: significant hypoxemia this AM, requiring re-intubation Being intubated at time of exam. - Current Medication List Current Medications: Active Medications Acetylcysteine (Mucomyst 20 Oral / Inh Use Only*) 600 mg NEB QIDR [facility] Last Admin: 09/01/16 06:47 Dose: 600 mg Albuterol Sulfate (Ventolin 0.083% Nebulizer Soln -) 1 amp NEB QIDR [facility] Last Admin: 09/01/16 06:47 Dose: 1 amp Atorvastatin Calcium (Lipitor -) 20 mg PO HS [facility] Last Admin: 08/31/16 22:24 Dose: Not Given Bupropion HCl (Wellbutrin Xl -) 150 mg PO DAILY [facility] Last Admin: 08/31/16 11:51 Dose: Not Given Docusate Sodium (Colace -) 100 mg PO BID [facility] Last Admin: 08/31/16 22:24 Dose: Not Given Duloxetine HCl (Cymbalta -) 60 mg PO DAILY [facility] Last Admin: 08/31/16 11:49 Dose: Not Given Epoetin Keith (Procrit -) 10,000 unit IVPUSH MoWeFr@10 [facility] Last Admin: 08/30/16 10:21 Dose: 10,000 unit Ferrous Sulfate (Feosol -) 325 mg PO BID [facility] Last Admin: 08/31/16 11:49 Dose: Not Given Guaifenesin (Mucinex -) 600 mg PO BID PRN Heparin Sodium (Porcine) (Heparin -) 1,000 unit IVPUSH PRN PRN PRN Reason: Heparin Heparin Sodium (Porcine) (Heparin -) 5,000 unit IVPUSH PRN PRN PRN Reason: Heparin Heparin Sodium (Porcine) 25, (000 unit/ Sodium Chloride) 500 mls @ 20 mls/hr IV TITR LESLEE; 1,000 UNIT/HR PRN Reason: Protocol Last Admin: 08/31/16 19:16 Dose: Not Given Ertapenem 1 gm/ Sodium (Chloride) 50 mls @ 100 mls/hr IVPB DAILY [facility] PRN Reason: Protocol Last Admin: 08/31/16 09:21 Dose: 100 mls/hr Dextrose (D5w -) 1,000 mls @ 83 mls/hr IV Q12H [facility] Last Admin: 09/01/16 00:00 Dose: 83 mls/hr Pantoprazole Sodium (Protonix 40mg Ivpb (Pre-Docked)) 100 mls @ 200 mls/hr IVPB DAILY [facility] Last Admin: 08/31/16 12:25 Dose: 200 mls/hr Insulin Aspart (Novolog Vial Sliding Scale -) 1 vial SQ ACHS [facility] PRN Reason: Protocol Last Admin: 09/01/16 07:27 Dose: Not Given Methylprednisolone Sodium Succinate (Solu-Medrol -) 40 mg IVPB DAILY [facility] Last Admin: 08/31/16 12:24 Dose: 40 mg Metoprolol Tartrate (Lopressor -) 25 mg PO BID [facility] Last Admin: 08/31/16 22:24 Dose: Not Given Morphine Sulfate (Morphine Injection -) 2 mg IVPUSH Q4H PRN PRN Reason: PAIN Last Admin: 09/01/16 07:28 Dose: 2 mg Nystatin (Nystop Powder -) 1 applic TP DAILY [facility] Last Admin: 08/31/16 11:30 Dose: 1 applic Polyethylene Glycol (Miralax (For Daily Use) -) 17 gm PO DAILY [facility] Last Admin: 08/31/16 11:50 Dose: Not Given Senna (Senna -) 2 tab PO DAILY PRN PRN Reason: CONSTIPATION Sodium Chloride ([place] Nasal Aylett -) 2 spray NS Q12H PRN PRN Reason: NASAL CONGESTION Tamsulosin HCl (Flomax -) 0.4 mg PO DAILY@0830 [facility] Last Admin: 08/31/16 11:48 Dose: Not Given - Objective Vital Signs: Vital Signs Temperature 97.6 F 09/01/16 06:00 Pulse Rate 93 H 09/01/16 06:00 Respiratory Rate 16 09/01/16 06:00 Blood Pressure 133/64 09/01/16 06:00 O2 Sat by Pulse Oximetry (%) 65 L 09/01/16 05:30 Cardiovascular: Yes: Tachycardia (decreased breath sounds left) Respiratory: Yes: Other Edema: Yes Edema: LLE: 1+, RLE: 1+ Labs: CBC, BMP 09/01/16 05:18 09/01/16 05:18 INR, PTT INR 1.22 (0.82-1.09) H 08/27/16 06:00 Laboratory Tests 09/01/16 09/01/16 09/01/16 05:18 05:18 05:18 WBC Pending RBC Pending Hgb Pending Hct Pending Plt Count Pending PTT (Actin FS) 46.3 H ABG pCO2 at Pt Temp ABG pO2 at Pt Temp O2 Delivery Device Oxygen Flow Rate Sodium Pending Potassium Pending BUN Pending Creatinine Pending 09/01/16 07:00 WBC RBC Hgb Hct Plt Count PTT (Actin FS) ABG pCO2 at Pt Temp 61.6 H* ABG pO2 at Pt Temp 38.6 L* D O2 Delivery Device Bipap Oxygen Flow Rate 100% Sodium Potassium BUN Creatinine - ....Imaging Chest X-ray: Image Reviewed EKG: Image Reviewed Assessment/Plan IMP: Acute on chronic exacerbation COPD, Right lower lobe PNA, probable left sided mucous plug and acute on chronic hypoxemic and hypercarbic respiratory failure Acute on chronic renal failure, suspected ATN from periods of relative hypotension Anemia CAD s/p PCI History of DVT REC: 1. PNA, probable mucous plug left lung, acute on chronic hypercarbic and hypoxemic respiratory failure: -superimposed on chronic COPD, chronic diastolic CHF -re-intubated this AM -Abx as per ID, possible new aspiration event - s/p b/l pigtail catheters 2. ARF: -As per renal -Avoid nephrotoxins (no PIPER/ARB) -Avoid hypotension, hold parameters placed on amlodipine 3. Anemia: -guaiac + -Follow H/H -For now bridging w/ heparin gtts 4. CAD s/p PCI: -ASA on hold due to anemia and guaiac + stool -Resume when feasible post procedure.
--- NOTE | 2016-09-01 08:31 | PROC ---
Intubation - Intubation Reason for Intubation: Respiratory Insufficiency Intubation Method: orotracheal Blade used: Mac Tube Size (cm): 7.5 Tube position @ lip (cm): 21 Tube position confirmed by: Direct visualization, CO2 detector, Breath sounds Breath Sounds after Intubation: right greater than left Post Intubation Xray: Yes (pending) Remarks: Anesthesiology Urgent Intubation Called re. pt. with increased WOB on BiPAP; though ABG improving, clinically, pt. appears intolerant to BiPAP. SpO2 max 80% on 100%FiO2. +BMV with Ambu and oral airway. SIVI with Propofol 100mg and Succinylcholine 120mg IV push. MAC 3 with grade 1 view after large,thick secretions covering glottis suctioned. ETT placed with ease, +color change on carboximeter. Breath sounds present bilaterally but sl. diminished on left, likely due to pleural effusions. ETT position to be confirmed with CXR. Post-intubation VS: BP 111/61, HR 97, SpO2 ranges from 75-93% with BMV on 100%O2.
[2016-09-01 08:32] LABS: BASOPHIL 0.2 % (0-2.0); MCH 28.3 pg (25.7-33.7); MCHC 31.3 g/dl (32.0-35.9); MEAN CELL VOLUME 90.3 fl (80-96); MEAN PLT VOLUME 7.7 fl (7.5-11.1); NEUTROPHILS 94.4 % (42.8-82.8); PLATELET COUNT 204 K/MM3 (134-434); RDW 16.9 % (11.9-15.9); WHITE BLOOD COUNT 14.9 K/mm3 (4.0-10.0)
[2016-09-01 08:36] LABS: ARTERIAL BLOOD GAS BASE EXCESS 7.7 meq/l (-2-2); ARTERIAL BLOOD GAS HCO3 34.3 meq/L (22-26); ARTERIAL BLOOD GAS pH 7.34 (7.35-7.45)
[2016-09-01 08:37] LABS: ALLENS TEST POSITIVE; ART PUNCT SITE RIGHT RADIAL; LPM/O2% 100; PT. ON O2? YES
[2016-09-01 08:38] LABS: MECH. VENT. YES; TYPE OF O2 VENT; VENT RATE 14; VT/PRESS 450
[2016-09-01 08:39] LABS: ARTERIAL BLOOD GAS PO2 47.5 mmHg (70-100)
[2016-09-01] MEDS ORDERED: MIDAZOLAM HCL 2 MG/2 ML SINGLE DOSE VIAL ONE (08:59)
[2016-09-01] MEDS ORDERED: LIDOCAINE HCL/PF 2% SDV 5ML VIAL ONE (09:16)
[2016-09-01] MEDS ORDERED: SUCCINYLCHOLINE CHLORIDE 200 MG/10 ML VIAL IVPUSH ONE (09:33)
[2016-09-01] MEDS ORDERED: MIDAZOLAM HCL 2 MG/2 ML SINGLE DOSE VIAL IVPUSH ONE (09:35)
[2016-09-01] MEDS ORDERED: DEXTROSE 5%-WATER - 500 ML IV SCH (09:45)
--- NOTE | 2016-09-01 10:00 | PN ---
Physical Exam: SUBJECTIVE: Patient seen and examined at bedside this AM. Intubated this morning after desaturation. Bipap settings increased to 18/8 without improvement in O2 Saturation. Decision made to intubate by VENEER TRIMMER. Improved aeration s/p chest PT & nebulizer treatments this afternoon. OBJECTIVE: Vital Signs Period Temp Pulse Resp BP Sys/[place] Pulse Ox Last 24 Hr 97.3 F-98 F 86-95 12-16 109-149/55-74 65-96 GENERAL: Intubated & sedated. Resting comfortably in bed. HEENT: Atraumatic, EOMI, PERRLA, No lymphadenopathy noted, dry tongue/lips LUNGS: Breath sounds significantly improved on right lung; breath sounds moderately diminished diffusely on left lung. No wheezes or accessory muscle use noted. HEART: Regular rate and rhythm, normal S1 and S2 with systolic murmur, rub or gallop. ABDOMEN: Soft, obese, nontender, not distended, normoactive bowel sounds, no guarding, no rebound, no masses. No hepatomegaly or splenomegaly. EXTREMITIES: 2+ pulses, warm, well-perfused. No calf tenderness. No peripheral edema. NEUROLOGICAL: Cranial nerves II-XII intact. Speech & gait deferred. PSYCHIATRIC: Cooperative. Good eye contact. Much less anxious than before. SKIN: Bilateral lower ext with skin discoloration with dark yellow patches and venous stasis. No signs of fluid overload. Laboratory Results - last 24 hr 08/31/16 08/31/16 09/01/16 05:20 11:15 05:18 WBC 14.9 H D RBC 2.72 L Hgb 7.7 L Hct 24.7 L MCV 90.6 MCHC 31.1 L RDW 17.2 H Plt Count 205 MPV 7.7 Neutrophils % 97.0 H Lymphocytes % 1.0 L D Monocytes % 1.0 L Eosinophils % Basophils % 1.0 D Differential Comment Manual diff done Platelet Estimate Adequate PTT (Actin FS) Puncture Site Right radial ABG pH 7.35 ABG pCO2 at Pt Temp 65.1 H* D ABG pO2 at Pt Temp 60.2 L D ABG HCO3 35.0 H ABG O2 Sat (Measured) 91.3 ABG O2 Content 11.4 L ABG Base Excess 8.4 H Issac Test Positive O2 Delivery Device Bipap 18/8 rr 26 Oxygen Flow Rate 60 Vent Mode Vent Rate Mechanical Rate PEEP 0.0 Pressure Support Vent Sodium Potassium Chloride Carbon Dioxide Anion Gap BUN Creatinine Random Glucose Calcium Phosphorus Magnesium 09/01/16 09/01/16 09/01/16 05:18 05:18 05:18 WBC 14.9 H RBC 2.68 L Hgb 7.6 L Hct 24.2 L MCV 90.3 MCHC 31.3 L RDW 16.9 H Plt Count 204 MPV 7.7 Neutrophils % 94.4 H Lymphocytes % 1.7 L D Monocytes % 3.7 L D Eosinophils % 0.0 Basophils % 0.2 Differential Comment Platelet Estimate PTT (Actin FS) 46.3 H Puncture Site ABG pH ABG pCO2 at Pt Temp ABG pO2 at Pt Temp ABG HCO3 ABG O2 Sat (Measured) ABG O2 Content ABG Base Excess Issac Test O2 Delivery Device Oxygen Flow Rate Vent Mode Vent Rate Mechanical Rate PEEP Pressure Support Vent Sodium 147 H Potassium 4.1 Chloride 103 Carbon Dioxide 38 H Anion Gap 6 L BUN 80 H Creatinine 2.3 H Random Glucose 167 H Calcium 7.9 L Phosphorus 4.3 D Magnesium 3.1 H 09/01/16 09/01/16 07:00 08:30 WBC RBC Hgb Hct MCV MCHC RDW Plt Count MPV Neutrophils % Lymphocytes % Monocytes % Eosinophils % Basophils % Differential Comment Platelet Estimate PTT (Actin FS) Puncture Site Right radial Right radial ABG pH 7.38 7.34 L ABG pCO2 at Pt Temp 61.6 H* 66.1 H* ABG pO2 at Pt Temp 38.6 L* D 47.5 L* D ABG HCO3 35.3 H 34.3 H ABG O2 Sat (Measured) 70.0 L* 80.0 L ABG O2 Content 7.8 L* 9.0 L* ABG Base Excess 9.3 H 7.7 H Issac Test Positive Positive O2 Delivery Device Bipap Vent Oxygen Flow Rate 100% 100 Vent Mode S/t A/c Vent Rate 26 14 Mechanical Rate Y Yes PEEP 5.0 15.0 Pressure Support Vent 16 450 Sodium Potassium Chloride Carbon Dioxide Anion Gap BUN Creatinine Random Glucose Calcium Phosphorus Magnesium Active Medications Generic Name Dose Route Start Last Admin Trade Name Freq PRN Reason Stop Dose Admin Acetylcysteine 600 mg 08/28/16 18:00 09/01/16 11:02 Mucomyst 20 Oral / Inh Use Only* NEB 600 mg QIDR [facility] Administration Albuterol Sulfate 1 amp 08/28/16 18:00 09/01/16 11:02 Ventolin 0.083% Nebulizer Soln - NEB 1 amp QIDR [facility] Administration Atorvastatin Calcium 20 mg 08/28/16 22:00 08/31/16 22:24 Lipitor - PO Not Given HS LESLEE Bupropion HCl 150 mg 08/29/16 10:00 09/01/16 12:38 Wellbutrin Xl - PO 150 mg DAILY [facility] Administration Docusate Sodium 100 mg 08/28/16 22:00 09/01/16 12:27 Colace - PO Not Given BID LES[facility]E Duloxetine HCl 60 mg 08/29/16 10:00 09/01/16 12:23 Cymbalta - PO 60 mg DAILY [facility] Administration Epoetin Keith 10,000 unit 08/30/16 10:00 09/01/16 12:32 Procrit - IVPUSH 10,000 unit MoWeFr@10 [facility] Administration Ferrous Sulfate 325 mg 08/28/16 22:00 08/31/16 11:49 Feosol - PO Not Given BID [facility] Guaifenesin 600 mg 08/28/16 14:22 Mucinex - PO BID PRN Heparin Sodium (Porcine) 1,000 unit 08/28/16 14:22 Heparin - IVPUSH PRN PRN Heparin Heparin Sodium (Porcine) 5,000 unit 08/28/16 14:22 Heparin - IVPUSH PRN PRN Heparin Heparin Sodium (Porcine) 25, 500 mls @ 20 mls/hr 08/28/16 14:22 09/01/16 12:29 000 unit/ Sodium Chloride IV 16 mls/hr TITR [facility]E Administration Protocol 1,000 UNIT/HR Ertapenem 1 gm/ Sodium 50 mls @ 100 mls/hr 08/30/16 10:00 09/01/16 12:36 Chloride IVPB 100 mls/hr DAILY [facility] Administration Protocol Pantoprazole Sodium 100 mls @ 200 mls/hr 08/31/16 12:00 09/01/16 12:22 Protonix 40mg Ivpb (Pre-Docked) IVPB 200 mls/hr DAILY [facility] Administration Propofol 100 mls @ 2.696 mls/hr 09/01/16 09:45 09/01/16 12:25 Diprivan - IVPB 5.4 mls/hr TITR LES[facility]E Administration Protocol 5 MCG/KG/MIN Insulin Aspart 1 vial 08/28/16 16:30 09/01/16 07:27 Novolog Vial Sliding Scale - SQ Not Given ACHS [facility] Protocol Methylprednisolone Sodium Succinate 40 mg 09/01/16 22:00 Solu-Medrol - IVPB BID [facility] Metoprolol Tartrate 25 mg 08/28/16 22:00 09/01/16 12:23 Lopressor - PO 25 mg BID [facility] Administration Morphine Sulfate 2 mg 08/29/16 23:05 09/01/16 07:28 Morphine Injection - IVPUSH 2 mg Q4H PRN Administration PAIN Nystatin 1 applic 08/29/16 10:00 08/31/16 11:30 Nystop Powder - TP 1 applic DAILY [facility] Administration Polyethylene Glycol 17 gm 08/29/16 10:00 09/01/16 12:27 Miralax (For Daily Use) - PO 17 gm DAILY [facility] Administration Senna 2 tab 08/28/16 14:22 09/01/16 12:23 Senna - PO 2 tab DAILY PRN Administration CONSTIPATION Sodium Chloride 2 spray 08/28/16 14:22 [place] Joice Nasal Joice - NS Q12H PRN NASAL CONGESTION Tamsulosin HCl 0.4 mg 08/29/16 08:30 09/01/16 12:24 Flomax - PO Not Given DAILY@0830 [facility] ASSESSMENT/PLAN: 75 year old male with PMH of HTN, HLD, CAD s/p stents x2 in 2014, diastolic CHF , AFIB, COPD, DVT and PE presented to ED last night from [place] for SOB & poor PO intake since being discharged from [facility] on 08/21/2016 for similar presentation. Found to be in ARF with right pleural effusion (larger than on discharge). #Acute Respiratory Failure, multifactorial etiology (aspiration pneumonia, superimposed on COPD exacerbation & chronic diastolic CHF) -Intubated & sedated on propofol (desat this morning with poor improvement after elevated BiPAP settings) -Ertapenem for aspiration pneumonia -Solumedrol 40mg BID -Mucinex, Mucomyst/Ventolin treatments -Chest PT -CXR reviewed, mucous plug this AM on left lung; right lung effusion vastly imrpoved -IR Consult appreciated -ID Consult appreciated #Anemia, (+) stool guiac -H/H stable since 1 unit PRBC given on 08/26 -EPO, Feosol being given as well -patient refused GI workup (colonoscopy/endoscopy) -will continue to monitor H/H for any signs of bleeding -GI Consult appreciated #KARLOS, improving (likely d/t poor PO intake & periods of relative hypotension during hospital stay) -Free water via NG tube for hydration -will monitor & trend kidney function -avoid nephrotoxic meds -hx of urinary retention with chronic lilly catheter -continue home meds: Flomax 0.4mg PO DAILY -nephrology consult appreciated #HTN/HTL/A-Fib history -currently on: Lopressor 25mg PO BID, Lipitor 20mg PO HS -need to discuss benefits & risks of full AC in setting of recurrent GI Bleeds with patient before starting Aspirin/Eliquis #Constipation -continue regimen: Colace, Miralax, Senna #Anxiety Hx -continue home meds: Wellbutrin 150mg PO DAILY, Cymbalta 60mg PO DAILY #DM -ISS -BGM Prophylaxis/FEN -Heparin -PPI -no IVF needed at present -monitor electrolytes -NPO Dispo: Patient states he wants FULL CODE status. Accepted for LTAC (likely transfer over weekend). Visit type - Emergency Visit Emergency Visit: Yes ED Registration Date: 08/23/16 Care time: The patient presented to the Emergency Department on the above date and was hospitalized for further evaluation of their emergent condition. - New Patient This patient is new to me today: No - Critical Care Critical Care patient: Yes Total Critical Care Time (in minutes): 45 Critical Care Statement: The care of this patient involved high complexity decision making to prevent further life threatening deterioration of the patient 's condition and/or to evalute & treat vital organ system(s) failure or risk of failure.
[2016-09-01 11:11] LABS: ALBUMIN 2.1 g/dl (3.4-5.0); BILIRUBIN,TOTAL 0.3 mg/dL (0.2-1.0); CALCIUM 8.1 mg/dL (8.5-10.1); COCKROFT - GAULT 34.84; CREATININE 2.4 mg/dL (0.7-1.3); TOT PROT 4.9 g/dl (6.4-8.2)
[2016-09-01] MEDS: PANTOPRAZOLE SODIUM 100 ML IVPB SCH (12:22)
[2016-09-01] MEDS: METOPROLOL TARTRATE 25 MG TABLET (FP) PO SCH ×2 (12:23→23:02)
[2016-09-01] MEDS: DULoxetine HCL 30 MG CAPSULE.DR (FP) PO SCH (12:23)
[2016-09-01] MEDS: TAMSULOSIN HCL 0.4 MG CAP.ER.24H (FP) PO SCH (12:24)
[2016-09-01] MEDS: PROPOFOL 100 ML IVPB SCH (12:25)
[2016-09-01] MEDS: POLYETHYLENE GLYCOL 3350 119 GM BTL PO SCH (12:27)
[2016-09-01] MEDS: DOCUSATE SODIUM 100 MG CAPSULE (FP) PO SCH ×2 (12:27→23:37)
[2016-09-01] MEDS: HEPARIN - 25,000 UNIT in SODIUM CHLORIDE 495 ML IV SCH (12:29)
[2016-09-01] MEDS: EPOETIN ALFA 10,000 UNIT/1 ML VIAL IVPUSH SCH (12:32)
[2016-09-01] MEDS ORDERED: PT OWN MED DRAWER 7, Y5N ONE ×2 (12:35→15:41)
[2016-09-01] MEDS: ERTAPENEM SODIUM 1 GM in SODIUM CHLORIDE 50 ML IVPB SCH (12:36)
--- NOTE | 2016-09-01 13:18 | PN ---
Teaching Attending Note Name of Resident: Alan Glover ATTENDING PHYSICIAN STATEMENT I saw and evaluated the patient. I reviewed the resident's note and discussed the case with the resident. I agree with the resident's findings and plan as documented. SUBJECTIVE: Patient seen and examined in the ICU. Decompensated and required intubation. CXR: Left mediastinal shift and opacification likely due to mucous plugging. Intake & Output 08/29/16 08/30/16 08/31/16 09/01/16 23:59 23:59 23:59 23:59 Intake Total 734 1212 2222.5 1188 Output Total 1550 2720 2425 300 Balance -816 -1508 -202.5 888 Weight 205 lb 4 oz 202 lb 2 oz 201 lb 0.985 oz 198 lb 1.6 oz Last Vital Signs Temp Pulse Resp BP Pulse Ox 97.6 F 88 21 96/62 65 L 09/01/16 06:00 09/01/16 12:00 09/01/16 12:10 09/01/16 12:00 09/01/16 05:30 Active Medications Acetylcysteine (Mucomyst 20 Oral / Inh Use Only*) 600 mg NEB QIDR [facility] Last Admin: 09/01/16 11:02 Dose: 600 mg Albuterol Sulfate (Ventolin 0.083% Nebulizer Soln -) 1 amp NEB QIDR [facility] Last Admin: 09/01/16 11:02 Dose: 1 amp Atorvastatin Calcium (Lipitor -) 20 mg PO HS [facility] Last Admin: 08/31/16 22:24 Dose: Not Given Bupropion HCl (Wellbutrin Xl -) 150 mg PO DAILY [facility] Last Admin: 09/01/16 12:38 Dose: 150 mg Docusate Sodium (Colace -) 100 mg PO BID [facility] Last Admin: 09/01/16 12:27 Dose: Not Given Duloxetine HCl (Cymbalta -) 60 mg PO DAILY [facility] Last Admin: 09/01/16 12:23 Dose: 60 mg Epoetin Keith (Procrit -) 10,000 unit IVPUSH MoWeFr@10 [facility] Last Admin: 09/01/16 12:32 Dose: 10,000 unit Ferrous Sulfate (Feosol -) 325 mg PO BID [facility] Last Admin: 08/31/16 11:49 Dose: Not Given Guaifenesin (Mucinex -) 600 mg PO BID PRN Heparin Sodium (Porcine) (Heparin -) 1,000 unit IVPUSH PRN PRN PRN Reason: Heparin Heparin Sodium (Porcine) (Heparin -) 5,000 unit IVPUSH PRN PRN PRN Reason: Heparin Heparin Sodium (Porcine) 25, (000 unit/ Sodium Chloride) 500 mls @ 20 mls/hr IV TITR LESLEE; 1,000 UNIT/HR PRN Reason: Protocol Last Admin: 09/01/16 12:29 Dose: 16 mls/hr Ertapenem 1 gm/ Sodium (Chloride) 50 mls @ 100 mls/hr IVPB DAILY [facility] PRN Reason: Protocol Last Admin: 09/01/16 12:36 Dose: 100 mls/hr Pantoprazole Sodium (Protonix 40mg Ivpb (Pre-Docked)) 100 mls @ 200 mls/hr IVPB DAILY [facility] Last Admin: 09/01/16 12:22 Dose: 200 mls/hr Propofol (Diprivan -) 100 mls @ 2.696 mls/hr IVPB TITR LESLEE; 5 MCG/KG/MIN PRN Reason: Protocol Last Admin: 09/01/16 12:25 Dose: 5.4 mls/hr Insulin Aspart (Novolog Vial Sliding Scale -) 1 vial SQ ACHS [facility] PRN Reason: Protocol Last Admin: 09/01/16 07:27 Dose: Not Given Methylprednisolone Sodium Succinate (Solu-Medrol -) 40 mg IVPB BID [facility] Metoprolol Tartrate (Lopressor -) 25 mg PO BID [facility] Last Admin: 09/01/16 12:23 Dose: 25 mg Morphine Sulfate (Morphine Injection -) 2 mg IVPUSH Q4H PRN PRN Reason: PAIN Last Admin: 09/01/16 07:28 Dose: 2 mg Nystatin (Nystop Powder -) 1 applic TP DAILY [facility] Last Admin: 08/31/16 11:30 Dose: 1 applic Polyethylene Glycol (Miralax (For Daily Use) -) 17 gm PO DAILY [facility] Last Admin: 09/01/16 12:27 Dose: 17 gm Senna (Senna -) 2 tab PO DAILY PRN PRN Reason: CONSTIPATION Last Admin: 09/01/16 12:23 Dose: 2 tab Sodium Chloride ([place] Nasal [place] -) 2 spray NS Q12H PRN PRN Reason: NASAL CONGESTION Tamsulosin HCl (Flomax -) 0.4 mg PO DAILY@0830 [facility] Last Admin: 09/01/16 12:24 Dose: Not Given GENERAL: Intubated and sedated HEENT: (-) icterus, dry membranes LUNGS: Scattered bilateral ronchi & bibasilar crackles noted. No wheezes. HEART: S1 and S2, (+) ESM ABDOMEN: Soft, obese, NT, ND, no guarding, no rebound, no masses. No hepatomegaly or splenomegaly. EXTREMITIES: 2+ pulses, (+) Edema NEUROLOGICAL: Sedated SKIN: Bilateral lower ext with skin discoloration with dark yellow patches and venous stasis. No signs of fluid overload. Laboratory Results - last 24 hr 09/01/16 09/01/16 09/01/16 05:18 05:18 05:18 WBC 14.9 H D RBC 2.72 L Hgb 7.7 L Hct 24.7 L MCV 90.6 MCHC 31.1 L RDW 17.2 H Plt Count 205 MPV 7.7 Neutrophils % Lymphocytes % Monocytes % Eosinophils % Basophils % PTT (Actin FS) 46.3 H Puncture Site ABG pH ABG pCO2 at Pt Temp ABG pO2 at Pt Temp ABG HCO3 ABG O2 Sat (Measured) ABG O2 Content ABG Base Excess Issac Test O2 Delivery Device Oxygen Flow Rate Vent Mode Vent Rate Mechanical Rate PEEP Pressure Support Vent Sodium 147 H Potassium 4.1 Chloride 103 Carbon Dioxide 38 H Anion Gap 6 L BUN 80 H Creatinine 2.3 H Creat Clearance w eGFR Random Glucose 167 H Calcium 7.9 L Phosphorus 4.3 D Magnesium 3.1 H Total Bilirubin AST ALT Alkaline Phosphatase Total Protein Albumin 09/01/16 09/01/16 09/01/16 05:18 05:18 07:00 WBC 14.9 H RBC 2.68 L Hgb 7.6 L Hct 24.2 L MCV 90.3 MCHC 31.3 L RDW 16.9 H Plt Count 204 MPV 7.7 Neutrophils % 94.4 H Lymphocytes % 1.7 L D Monocytes % 3.7 L D Eosinophils % 0.0 Basophils % 0.2 PTT (Actin FS) Puncture Site Right radial ABG pH 7.38 ABG pCO2 at Pt Temp 61.6 H* ABG pO2 at Pt Temp 38.6 L* D ABG HCO3 35.3 H ABG O2 Sat (Measured) 70.0 L* ABG O2 Content 7.8 L* ABG Base Excess 9.3 H Issac Test Positive O2 Delivery Device Bipap Oxygen Flow Rate 100% Vent Mode S/t Vent Rate 26 Mechanical Rate Y PEEP 5.0 Pressure Support Vent 16 Sodium 147 H Potassium 4.2 Chloride 104 Carbon Dioxide 34 H Anion Gap 9 BUN 82 H Creatinine 2.4 H Creat Clearance w eGFR 26.67 Random Glucose 169 H Calcium 8.1 L Phosphorus Magnesium Total Bilirubin 0.3 D AST 13 L ALT 9 L Alkaline Phosphatase 69 Total Protein 4.9 L Albumin 2.1 L 09/01/16 08:30 WBC RBC Hgb Hct MCV MCHC RDW Plt Count MPV Neutrophils % Lymphocytes % Monocytes % Eosinophils % Basophils % PTT (Actin FS) Puncture Site Right radial ABG pH 7.34 L ABG pCO2 at Pt Temp 66.1 H* ABG pO2 at Pt Temp 47.5 L* D ABG HCO3 34.3 H ABG O2 Sat (Measured) 80.0 L ABG O2 Content 9.0 L* ABG Base Excess 7.7 H Issac Test Positive O2 Delivery Device Vent Oxygen Flow Rate 100 Vent Mode A/c Vent Rate 14 Mechanical Rate Yes PEEP 15.0 Pressure Support Vent 450 Sodium Potassium Chloride Carbon Dioxide Anion Gap BUN Creatinine Creat Clearance w eGFR Random Glucose Calcium Phosphorus Magnesium Total Bilirubin AST ALT Alkaline Phosphatase Total Protein Albumin ASSESSMENT/PLAN: Acute on chronic Respiratory Failure HTN HLD CAD S/P PCI Diastolic CHF AFIB COPD DVT / PE Follow ABG CVC inserted BD TX Steroids Diuresis as tolerated Aspiration precautions Monitor CT output ABX per ID BD TX Normal transfusion thresholds Glycemic control Despite his decompensation, I feel that he is still an appropriate LTAC transfer. In fact, since he is intubated, it is safer to move his rather than being on NIPPV. Dr Vasquez Critical care time spent in reviewing chart, evaluating patient and formulating plan 35 min
--- NOTE | 2016-09-01 13:19 | PROC ---
Central Line Insertion Indication: Poor Venous Access Risks and Benefits Explained: Yes Consent on Chart: Yes Central Line: Triple Lumen Catheter Anesthesia: 1% Lidocaine Sterile Technique: Yes Ultrasound Guided Assistance: Yes Position: Left Internal Jugular Post Insertion: Yes: Bilateral Breath Sounds, Bilateral Chest Expansion, Chest X-Ray Ordered Sterile Dressing Applied: Yes
--- NOTE | 2016-09-01 13:20 | PN ---
Progress Note (short form) - Note Progress Note: Renal Follow up for KARLOS/CKD Pt seen and examined in the ICU s/p emergent intubation this am for hypoxia chest tubes in place and draining pt sedated on propofol on Vent with 75% FiO2 Vital Signs Temperature 97.6 F 09/01/16 06:00 Pulse Rate 88 09/01/16 12:00 Respiratory Rate 21 09/01/16 12:10 Blood Pressure 96/62 09/01/16 12:00 O2 Sat by Pulse Oximetry (%) 65 L 09/01/16 05:30 Intake & Output 08/29/16 08/30/16 08/31/16 09/01/16 23:59 23:59 23:59 23:59 Intake Total 734 1212 2222.5 1188 Output Total 1550 2720 2425 300 Balance -816 -1508 -202.5 888 Weight 205 lb 4 oz 202 lb 2 oz 201 lb 0.985 oz 198 lb 1.6 oz Gen: NAD on BIPAP CVS: RRR, No M/R Lungs: Course BS, no wheeze, no rales Abd: soft, obese, NT/ND Ext: Trace LE edema, no cyanosis or clubbing CBC, BMP 09/01/16 05:18 09/01/16 05:18 Current Medications Acetylcysteine (Mucomyst 20 Oral / Inh Use Only*) 600 mg NEB QIDR [facility] Last Admin: 09/01/16 11:02 Dose: 600 mg Albuterol Sulfate (Ventolin 0.083% Nebulizer Soln -) 1 amp NEB QIDR [facility] Last Admin: 09/01/16 11:02 Dose: 1 amp Atorvastatin Calcium (Lipitor -) 20 mg PO HS [facility] Last Admin: 08/31/16 22:24 Dose: Not Given Bupropion HCl (Wellbutrin Xl -) 150 mg PO DAILY [facility] Last Admin: 09/01/16 12:38 Dose: 150 mg Docusate Sodium (Colace -) 100 mg PO BID [facility] Last Admin: 09/01/16 12:27 Dose: Not Given Duloxetine HCl (Cymbalta -) 60 mg PO DAILY [facility] Last Admin: 09/01/16 12:23 Dose: 60 mg Epoetin Keith (Procrit -) 10,000 unit IVPUSH MoWeFr@10 [facility] Last Admin: 09/01/16 12:32 Dose: 10,000 unit Ferrous Sulfate (Feosol -) 325 mg PO BID [facility] Last Admin: 08/31/16 11:49 Dose: Not Given Guaifenesin (Mucinex -) 600 mg PO BID PRN Heparin Sodium (Porcine) (Heparin -) 1,000 unit IVPUSH PRN PRN PRN Reason: Heparin Heparin Sodium (Porcine) (Heparin -) 5,000 unit IVPUSH PRN PRN PRN Reason: Heparin Heparin Sodium (Porcine) 25, (000 unit/ Sodium Chloride) 500 mls @ 20 mls/hr IV TITR [facility]; 1,000 UNIT/HR PRN Reason: Protocol Last Admin: 09/01/16 12:29 Dose: 16 mls/hr Ertapenem 1 gm/ Sodium (Chloride) 50 mls @ 100 mls/hr IVPB DAILY [facility] PRN Reason: Protocol Last Admin: 09/01/16 12:36 Dose: 100 mls/hr Pantoprazole Sodium (Protonix 40mg Ivpb (Pre-Docked)) 100 mls @ 200 mls/hr IVPB DAILY [facility] Last Admin: 09/01/16 12:22 Dose: 200 mls/hr Propofol (Diprivan -) 100 mls @ 2.696 mls/hr IVPB TITR [facility]; 5 MCG/KG/MIN PRN Reason: Protocol Last Admin: 09/01/16 12:25 Dose: 5.4 mls/hr Insulin Aspart (Novolog Vial Sliding Scale -) 1 vial SQ ACHS [facility] PRN Reason: Protocol Last Admin: 09/01/16 07:27 Dose: Not Given Methylprednisolone Sodium Succinate (Solu-Medrol -) 40 mg IVPB BID [facility] Metoprolol Tartrate (Lopressor -) 25 mg PO BID [facility] Last Admin: 09/01/16 12:23 Dose: 25 mg Morphine Sulfate (Morphine Injection -) 2 mg IVPUSH Q4H PRN PRN Reason: PAIN Last Admin: 09/01/16 07:28 Dose: 2 mg Nystatin (Nystop Powder -) 1 applic TP DAILY [facility] Last Admin: 08/31/16 11:30 Dose: 1 applic Polyethylene Glycol (Miralax (For Daily Use) -) 17 gm PO DAILY [facility] Last Admin: 09/01/16 12:27 Dose: 17 gm Senna (Senna -) 2 tab PO DAILY PRN PRN Reason: CONSTIPATION Last Admin: 09/01/16 12:23 Dose: 2 tab Sodium Chloride ([place] Nasal [place] -) 2 spray NS Q12H PRN PRN Reason: NASAL CONGESTION Tamsulosin HCl (Flomax -) 0.4 mg PO DAILY@0830 [facility] Last Admin: 09/01/16 12:24 Dose: Not Given A/P 75 year old Gentleman with PMhx of CKD (Hx of KARLOS requiring dialysis), Hypertension, COPD on O2, BPH, Gout, CAD, Diastolic CHF who presented from Rehab with acute Resp Failure and found to have KARLOS on CKD. #Acute on Chronic Renal Failure secondary to intravascular depletion Cr 2.3 today and pt is non-oliguric continue supportive care keep map > 65 off IVF given effusions and resp failrue trend BUN/Cr and urine output no indication for CLIENT SERVICES SPECIALIST #Hypernatremia improved d/c D5W start free water via NG tube #Resp Failure on BIPAP/Pleural effusion now intubated management as per ICU #Anemia Continue Epogen and iron Melvin Johnson DO
--- NOTE | 2016-09-01 15:58 | PN ---
Physical Exam: SUBJECTIVE: Patient seen and examined at bedside. Labored breathing. "I can't breathe." OBJECTIVE: Vital Signs Period Temp Pulse Resp BP Sys/[place] Pulse Ox Last 24 Hr 97.3 F-98 F 86-95 12-24 89-149/57-74 65-96 GENERAL: The patient is awake, in respiratory distress. LUNGS: No air movement on right, clear on left; on BIPAP, labored breathing; bilateral pigtails to gravity HEART: Regular rate and rhythm, S1, S2 without murmur, rub or gallop. ABDOMEN: Soft, nontender, nondistended, normoactive bowel sounds, no guarding, no rebound, EXTREMITIES: 2+ pulses, warm, well-perfused, no edema. NEUROLOGICAL: Cranial nerves II through XII grossly intact. Laboratory Results - last 24 hr 09/01/16 09/01/16 09/01/16 05:18 05:18 05:18 WBC 14.9 H D RBC 2.72 L Hgb 7.7 L Hct 24.7 L MCV 90.6 MCHC 31.1 L RDW 17.2 H Plt Count 205 MPV 7.7 Neutrophils % Lymphocytes % Monocytes % Eosinophils % Basophils % PTT (Actin FS) 46.3 H Puncture Site ABG pH ABG pCO2 at Pt Temp ABG pO2 at Pt Temp ABG HCO3 ABG O2 Sat (Measured) ABG O2 Content ABG Base Excess Issac Test O2 Delivery Device Oxygen Flow Rate Vent Mode Vent Rate Mechanical Rate PEEP Pressure Support Vent Sodium 147 H Potassium 4.1 Chloride 103 Carbon Dioxide 38 H Anion Gap 6 L BUN 80 H Creatinine 2.3 H Creat Clearance w eGFR Random Glucose 167 H Calcium 7.9 L Phosphorus 4.3 D Magnesium 3.1 H Total Bilirubin AST ALT Alkaline Phosphatase Total Protein Albumin 09/01/16 09/01/16 09/01/16 05:18 05:18 07:00 WBC 14.9 H RBC 2.68 L Hgb 7.6 L Hct 24.2 L MCV 90.3 MCHC 31.3 L RDW 16.9 H Plt Count 204 MPV 7.7 Neutrophils % 94.4 H Lymphocytes % 1.7 L D Monocytes % 3.7 L D Eosinophils % 0.0 Basophils % 0.2 PTT (Actin FS) Puncture Site Right radial ABG pH 7.38 ABG pCO2 at Pt Temp 61.6 H* ABG pO2 at Pt Temp 38.6 L* D ABG HCO3 35.3 H ABG O2 Sat (Measured) 70.0 L* ABG O2 Content 7.8 L* ABG Base Excess 9.3 H Issac Test Positive O2 Delivery Device Bipap Oxygen Flow Rate 100% Vent Mode S/t Vent Rate 26 Mechanical Rate Y PEEP 5.0 Pressure Support Vent 16 Sodium 147 H Potassium 4.2 Chloride 104 Carbon Dioxide 34 H Anion Gap 9 BUN 82 H Creatinine 2.4 H Creat Clearance w eGFR 26.67 Random Glucose 169 H Calcium 8.1 L Phosphorus Magnesium Total Bilirubin 0.3 D AST 13 L ALT 9 L Alkaline Phosphatase 69 Total Protein 4.9 L Albumin 2.1 L 09/01/16 08:30 WBC RBC Hgb Hct MCV MCHC RDW Plt Count MPV Neutrophils % Lymphocytes % Monocytes % Eosinophils % Basophils % PTT (Actin FS) Puncture Site Right radial ABG pH 7.34 L ABG pCO2 at Pt Temp 66.1 H* ABG pO2 at Pt Temp 47.5 L* D ABG HCO3 34.3 H ABG O2 Sat (Measured) 80.0 L ABG O2 Content 9.0 L* ABG Base Excess 7.7 H Issac Test Positive O2 Delivery Device Vent Oxygen Flow Rate 100 Vent Mode A/c Vent Rate 14 Mechanical Rate Yes PEEP 15.0 Pressure Support Vent 450 Sodium Potassium Chloride Carbon Dioxide Anion Gap BUN Creatinine Creat Clearance w eGFR Random Glucose Calcium Phosphorus Magnesium Total Bilirubin AST ALT Alkaline Phosphatase Total Protein Albumin Active Medications Generic Name Dose Route Start Last Admin Trade Name Freq PRN Reason Stop Dose Admin Acetylcysteine 600 mg 08/28/16 18:00 09/01/16 11:02 Mucomyst 20 Oral / Inh Use Only* NEB 600 mg QIDR [facility] Administration Albuterol Sulfate 1 amp 08/28/16 18:00 09/01/16 11:02 Ventolin 0.083% Nebulizer Soln - NEB 1 amp QIDR [facility] Administration Atorvastatin Calcium 20 mg 08/28/16 22:00 08/31/16 22:24 Lipitor - PO Not Given HS [facility] Bupropion HCl 150 mg 08/29/16 10:00 09/01/16 12:38 Wellbutrin Xl - PO 150 mg DAILY [facility] Administration Docusate Sodium 100 mg 08/28/16 22:00 09/01/16 12:27 Colace - PO Not Given BID [facility] Duloxetine HCl 60 mg 08/29/16 10:00 09/01/16 12:23 Cymbalta - PO 60 mg DAILY [facility] Administration Epoetin Keith 10,000 unit 08/30/16 10:00 09/01/16 12:32 Procrit - IVPUSH 10,000 unit MoWeFr@10 [facility] Administration Ferrous Sulfate 325 mg 08/28/16 22:00 08/31/16 11:49 Feosol - PO Not Given BID [facility] Guaifenesin 600 mg 08/28/16 14:22 Mucinex - PO BID PRN Heparin Sodium (Porcine) 1,000 unit 08/28/16 14:22 Heparin - IVPUSH PRN PRN Heparin Heparin Sodium (Porcine) 5,000 unit 08/28/16 14:22 Heparin - IVPUSH PRN PRN Heparin Heparin Sodium (Porcine) 25, 500 mls @ 20 mls/hr 08/28/16 14:22 09/01/16 12:29 000 unit/ Sodium Chloride IV 16 mls/hr TITR [facility] Administration Protocol 1,000 UNIT/HR Ertapenem 1 gm/ Sodium 50 mls @ 100 mls/hr 08/30/16 10:00 09/01/16 12:36 Chloride IVPB 100 mls/hr DAILY [facility] Administration Protocol Pantoprazole Sodium 100 mls @ 200 mls/hr 08/31/16 12:00 09/01/16 12:22 Protonix 40mg Ivpb (Pre-Docked) IVPB 200 mls/hr DAILY [facility] Administration Propofol 100 mls @ 2.696 mls/hr 09/01/16 09:45 09/01/16 12:25 Diprivan - IVPB 5.4 mls/hr TITR [facility] Administration Protocol 5 MCG/KG/MIN Insulin Aspart 1 vial 08/28/16 16:30 09/01/16 07:27 Novolog Vial Sliding Scale - SQ Not Given ACHS [facility] Protocol Methylprednisolone Sodium Succinate 40 mg 09/01/16 22:00 Solu-Medrol - IVPB BID [facility] Metoprolol Tartrate 25 mg 08/28/16 22:00 09/01/16 12:23 Lopressor - PO 25 mg BID [facility] Administration Morphine Sulfate 2 mg 08/29/16 23:05 09/01/16 07:28 Morphine Injection - IVPUSH 2 mg Q4H PRN Administration PAIN Nystatin 1 applic 08/29/16 10:00 08/31/16 11:30 Nystop Powder - TP 1 applic DAILY [facility] Administration Polyethylene Glycol 17 gm 08/29/16 10:00 09/01/16 12:27 Miralax (For Daily Use) - PO 17 gm DAILY [facility] Administration Senna 2 tab 08/28/16 14:22 09/01/16 12:23 Senna - PO 2 tab DAILY PRN Administration CONSTIPATION Sodium Chloride 2 spray 08/28/16 14:22 [place] Nasal [place] - NS Q12H PRN NASAL CONGESTION Tamsulosin HCl 0.4 mg 08/29/16 08:30 09/01/16 12:24 Flomax - PO Not Given DAILY@0830 [facility] ASSESSMENT/PLAN 75 year-old male with a significant PMH of HTN, HLD, CAD s/p stents x 2 (2014), diastolic heart failure, afib, COPD, recurrent episodes of respiratory failure requiring intubation, h/o GI bleed, h/o DVT and PE, CKD previously requiring HD , urinary retention with chronic lilly. Most recently hospitalized 08/11-08/21/16 and discharged to [facility]. Readmitted 08/24/16 after reportedly refusing to take medications and poor PO intake. Acute on chronic hypoxic and hypercapnic respiratory failure --intubated this morning Asthma/COPD --IV steroids --duonebs, mucomyst Acute on chronic diastolic heart failure --Echo: LV function normal, EF 57%; RV function normal; trace MR, trace TR --bilateral pleural effusions s/p bilateral pigtails both to gravity --continue to hold diuretics due to KARLOS and since respiratory status is at baseline Acute on chronic renal failure --BUN/Cr improving; Cr 2.3 (baseline Cr 1.5) --continue to hold diuretics --continue to hold fluids HCAP --08/25 CXR: RLL consolidation --afebrile; persistent leukocytosis --continue Ertapenem Blood loss anemia --h/h stable --seen and evaluated by Dr. Fry who thinks active bleeding component; he presented patient with risks/benefits of EGD/colon; patient declines these interventions --protonix PO BID Paroxysmal atrial fibrillation --rate well-controlled --continue metoprolol --on heparin drip Hypertension --BP well-controlled --continued amlodipine, metoprolol Hyperlipidemia --continue Lipitor CAD s/p stents --continue ASA, Lipitor h/o DVT and PE --on heparin drip Hypernatremia F/E/N Fluids: Electrolytes: replete as indicated Nutrition: DVT prophylaxis: on heparin drip Dispo: has been accepted to [place]. Possible discharge tomorrow. Full Code. Visit type - Emergency Visit Emergency Visit: Yes ED Registration Date: 08/23/16 Care time: The patient presented to the Emergency Department on the above date and was hospitalized for further evaluation of their emergent condition. - New Patient This patient is new to me today: No - Critical Care Critical Care patient: Yes Total Critical Care Time (in minutes): 60 Critical Care Statement: The care of this patient involved high complexity decision making to prevent further life threatening deterioration of the patient 's condition and/or to evalute & treat vital organ system(s) failure or risk of failure.
[2016-09-01 16:21] LABS: ALLENS TEST POSITIVE; ART PUNCT SITE RIGHT RADIAL; ARTERIAL BLD GAS O2 SATURATION 90.4 % (90-98.9); ARTERIAL BLOOD GAS BASE EXCESS 7.9 meq/l (-2-2); ARTERIAL BLOOD GAS HCO3 33.2 meq/L (22-26); LPM/O2% 75; MECH. VENT. YES; PT. ON O2? YES; TYPE OF O2 VENT
[2016-09-01 16:22] LABS: ARTERIAL BLOOD GAS PO2 58.2 mmHg (70-100); VENT RATE 18; VT/PRESS 450
[2016-09-01] MEDS: ATORVASTATIN CA 20 MG TABLET (FP) PO SCH (23:02)
[2016-09-01] MEDS: methylPREDNISolone NA SUCC 40 MG/1 ML VIAL IVPB SCH (23:02)
[2016-09-02] MEDS ORDERED: METOPROLOL TARTRATE 5 MG/5 ML VIAL IVPUSH ONE (04:15)
[2016-09-02] MEDS ORDERED: AMIODARONE HCL 150 MG/3 ML VIAL IVPB ONE (04:39)
[2016-09-02] MEDS ORDERED: AMIODARONE HCL 150 MG/3 ML VIAL ONE (04:39)
[2016-09-02] MEDS ORDERED: NOREPINEPHRINE BITARTRATE 4 MG/4 ML ML IV ONE ×2 (04:39→09:41)
[2016-09-02] MEDS: NOREPINEPHRINE BITARTRATE 8,000 MCG in DEXTROSE 5%-WATER - 492 ML IV SCH ×2 (05:10→10:10)
[2016-09-02 05:17] LABS: ALLENS TEST POSITIVE; ART PUNCT SITE RIGHT RADIAL; ARTERIAL BLD GAS O2 SATURATION 93.1 % (90-98.9); ARTERIAL BLOOD GAS BASE EXCESS 4.9 meq/l (-2-2); ARTERIAL BLOOD GAS HCO3 29.9 meq/L (22-26); ARTERIAL BLOOD GAS pH 7.39 (7.35-7.45); LPM/O2% 100%; PT. ON O2? YES
[2016-09-02 05:18] LABS: ARTERIAL BLOOD GAS PO2 68.1 mmHg (70-100); MECH. VENT. YES; TYPE OF O2 MECH VENT; VENT RATE 18; VT/PRESS 450
[2016-09-02] MEDS: ALBUTEROL SO4 0.083% IH SOL 2.5 MG/3 ML VIAL.NEB. NEB SCH ×4 (05:45→18:00)
[2016-09-02] MEDS: ACETYLCYSTEINE 20% 200MG/ML 4 ML VIAL *FOR ORAL / INH USE ONLY NEB SCH ×4 (05:45→18:00)
[2016-09-02] MEDS ORDERED: AMIODARONE HCL INJECTION 450 MG in DEXTROSE 5%-WATER - 241 ML IVPB SCH ×2 (06:00→15:30)
[2016-09-02 06:31] LABS: BASOPHIL 0.2 % (0-2.0); EOSINOPHIL 0.7 % (0-4.5); MCH 27.7 pg (25.7-33.7); MCHC 30.8 g/dl (32.0-35.9); MEAN CELL VOLUME 90.2 fl (80-96); MEAN PLT VOLUME 8.4 fl (7.5-11.1); NEUTROPHILS 92.3 % (42.8-82.8); PLATELET COUNT 299 K/MM3 (134-434); RDW 17.5 % (11.9-15.9); WHITE BLOOD COUNT 16.8 K/mm3 (4.0-10.0)
[2016-09-02 07:00] LABS: ALBUMIN 1.8 g/dl (3.4-5.0); CALCIUM 7.5 mg/dL (8.5-10.1); CREATININE 3.4 mg/dL (0.7-1.3); MAGNESIUM 2.7 mg/dL (1.8-2.4); PHOSPHOROUS 4.4 mg/dL (2.5-4.9)
[2016-09-02] MEDS: INSULIN SLIDING SCALE (NOVOLOG) 1 VIAL SQ SCH ×4 (07:00→23:24)
[2016-09-02 07:02] LABS: BILIRUBIN,TOTAL 0.5 mg/dL (0.2-1.0); TOT PROT 4.5 g/dl (6.4-8.2)
[2016-09-02 07:04] LABS: COCKROFT - GAULT 24.7
[2016-09-02 07:49] LABS: ARTERIAL BLD GAS O2 SATURATION 99.9 % (90-98.9); ARTERIAL BLOOD GAS HCO3 30.7 meq/L (22-26); ARTERIAL BLOOD GAS pH 7.36 (7.35-7.45)
[2016-09-02 07:55] LABS: ALLENS TEST POSITIVE; ART PUNCT SITE RIGHT RADIAL; LPM/O2% 100%; MECH. VENT. ESPRIT; PT. ON O2? YES; TYPE OF O2 MEC.VENT
[2016-09-02 07:56] LABS: VENT RATE 18; VT/PRESS 450
--- NOTE | 2016-09-02 09:45 | PN ---
Progress Note (short form) - Note Progress Note: Patient seen and examined in the ICU. Progressive worsening of overall condition. KARLOS, progressive shock on increased pressor requirements, Amiodarone drip. CXR: Improving left atelectasis. Intake & Output 08/30/16 08/31/16 09/01/16 09/02/16 23:59 23:59 23:59 23:59 Intake Total 1212 2222.5 2248 870.8 Output Total 2720 2425 1000 390 Balance -1508 -202.5 1248 480.8 Weight 202 lb 2 oz 201 lb 0.985 oz 198 lb 1.6 oz 199 lb Last Vital Signs Temp Pulse Resp BP Pulse Ox 98.2 F 128 H 18 112/66 98 09/02/16 08:00 09/02/16 08:00 09/02/16 09:15 09/02/16 08:00 09/02/16 09:00 Active Medications Acetylcysteine (Mucomyst 20 Oral / Inh Use Only*) 600 mg NEB QIDR [facility] Last Admin: 09/02/16 05:45 Dose: 600 mg Albuterol Sulfate (Ventolin 0.083% Nebulizer Soln -) 1 amp NEB QIDR [facility] Last Admin: 09/02/16 05:45 Dose: 1 amp Atorvastatin Calcium (Lipitor -) 20 mg PO [facility] Last Admin: 09/01/16 23:02 Dose: 20 mg Bupropion HCl (Wellbutrin Xl -) 150 mg PO DAILY [facility] Last Admin: 09/01/16 12:38 Dose: 150 mg Docusate Sodium (Colace -) 100 mg PO BID [facility] Last Admin: 09/01/16 23:37 Dose: Not Given Duloxetine HCl (Cymbalta -) 60 mg PO DAILY [facility] Last Admin: 09/01/16 12:23 Dose: 60 mg Epoetin Keith (Procrit -) 10,000 unit IVPUSH MoWeFr@10 [facility] Last Admin: 09/01/16 12:32 Dose: 10,000 unit Ferrous Sulfate (Feosol -) 325 mg PO BID [facility] Last Admin: 08/31/16 11:49 Dose: Not Given Guaifenesin (Mucinex -) 600 mg PO BID PRN Heparin Sodium (Porcine) (Heparin -) 1,000 unit IVPUSH PRN PRN PRN Reason: Heparin Heparin Sodium (Porcine) (Heparin -) 5,000 unit IVPUSH PRN PRN PRN Reason: Heparin Heparin Sodium (Porcine) 25, (000 unit/ Sodium Chloride) 500 mls @ 20 mls/hr IV TITR [facility]; 1,000 UNIT/HR PRN Reason: Protocol Last Admin: 09/01/16 12:29 Dose: 16 mls/hr Ertapenem 1 gm/ Sodium (Chloride) 50 mls @ 100 mls/hr IVPB DAILY [facility] PRN Reason: Protocol Last Admin: 09/01/16 12:36 Dose: 100 mls/hr Pantoprazole Sodium (Protonix 40mg Ivpb (Pre-Docked)) 100 mls @ 200 mls/hr IVPB DAILY [facility] Last Admin: 09/01/16 12:22 Dose: 200 mls/hr Propofol (Diprivan -) 100 mls @ 2.696 mls/hr IVPB TITR [facility]; 5 MCG/KG/MIN PRN Reason: Protocol Last Admin: 09/01/16 12:25 Dose: 5.4 mls/hr Norepinephrine Bitartrate 8, (000 mcg/ Dextrose) 500 mls @ 18.75 mls/hr IV TITR [facility]; 5 MCG/MIN PRN Reason: Protocol Last Admin: 09/02/16 05:10 Dose: 60 mls/hr Amiodarone HCl 450 mg/ (Dextrose) 250 mls @ 33.33 mls/hr IVPB TITR [facility]; 1 MG/ MIN PRN Reason: Protocol Stop: 09/02/16 12:00 Last Admin: 09/02/16 06:55 Dose: 33.33 mls/hr Insulin Aspart (Novolog Vial Sliding Scale -) 1 vial SQ ACHS [facility] PRN Reason: Protocol Last Admin: 09/02/16 07:00 Dose: Not Given Methylprednisolone Sodium Succinate (Solu-Medrol -) 40 mg IVPB BID [facility] Last Admin: 09/01/16 23:02 Dose: 40 mg Metoprolol Tartrate (Lopressor -) 25 mg PO BID [facility] Last Admin: 09/01/16 23:02 Dose: 25 mg Nystatin (Nystop Powder -) 1 applic TP DAILY [facility] Last Admin: 08/31/16 11:30 Dose: 1 applic Polyethylene Glycol (Miralax (For Daily Use) -) 17 gm PO DAILY [facility] Last Admin: 09/01/16 12:27 Dose: 17 gm Senna (Senna -) 2 tab PO DAILY PRN PRN Reason: CONSTIPATION Last Admin: 09/01/16 12:23 Dose: 2 tab Sodium Chloride ([place] Nasal [place] -) 2 spray NS Q12H PRN PRN Reason: NASAL CONGESTION Tamsulosin HCl (Flomax -) 0.4 mg PO DAILY@0830 [facility] Last Admin: 09/01/16 12:24 Dose: Not Given GENERAL: Intubated and sedated HEENT: (-) icterus, dry membranes LUNGS: Scattered bilateral ronchi & bibasilar crackles noted. No wheezes. HEART: S1 and S2, (+) ESM ABDOMEN: Soft, obese, NT, ND, no guarding, no rebound, no masses. No hepatomegaly or splenomegaly. EXTREMITIES: 2+ pulses, (+) Edema NEUROLOGICAL: Sedated SKIN: Bilateral lower ext with skin discoloration with dark yellow patches and venous stasis. No signs of fluid overload. Laboratory Results - last 24 hr 08/31/16 08/31/16 09/01/16 11:23 19:19 05:18 WBC RBC Hgb Hct MCV MCHC RDW Plt Count MPV Neutrophils % Lymphocytes % Monocytes % Eosinophils % Basophils % PTT (Actin FS) Puncture Site ABG pH ABG pCO2 at Pt Temp ABG pO2 at Pt Temp ABG HCO3 ABG O2 Sat (Measured) ABG O2 Content ABG Base Excess Issac Test O2 Delivery Device Oxygen Flow Rate Vent Mode Vent Rate Mechanical Rate PEEP Pressure Support Vent Sodium 147 H Potassium 4.2 Chloride 104 Carbon Dioxide 34 H Anion Gap 9 BUN 82 H Creatinine 2.4 H Creat Clearance w eGFR 26.67 POC Glucometer 160.72926 272.32719 Random Glucose 169 H Calcium 8.1 L Phosphorus Magnesium Total Bilirubin 0.3 D AST 13 L ALT 9 L Alkaline Phosphatase 69 Total Protein 4.9 L Albumin 2.1 L 09/01/16 09/01/16 09/01/16 16:10 17:41 23:32 WBC RBC Hgb Hct MCV MCHC RDW Plt Count MPV Neutrophils % Lymphocytes % Monocytes % Eosinophils % Basophils % PTT (Actin FS) Puncture Site Right radial ABG pH 7.40 ABG pCO2 at Pt Temp 55.0 H ABG pO2 at Pt Temp 58.2 L D ABG HCO3 33.2 H ABG O2 Sat (Measured) 90.4 ABG O2 Content 9.6 L* ABG Base Excess 7.9 H Issac Test Positive O2 Delivery Device Vent Oxygen Flow Rate 75 Vent Mode A/c Vent Rate 18 Mechanical Rate Yes PEEP 10.0 Pressure Support Vent 450 Sodium Potassium Chloride Carbon Dioxide Anion Gap BUN Creatinine Creat Clearance w eGFR POC Glucometer 123.17298 101.94503 Random Glucose Calcium Phosphorus Magnesium Total Bilirubin AST ALT Alkaline Phosphatase Total Protein Albumin 09/02/16 09/02/16 09/02/16 05:06 05:30 05:30 WBC RBC Hgb Hct MCV MCHC RDW Plt Count MPV Neutrophils % Lymphocytes % Monocytes % Eosinophils % Basophils % PTT (Actin FS) 45.4 H Puncture Site Right radial ABG pH 7.39 ABG pCO2 at Pt Temp 50.3 H ABG pO2 at Pt Temp 68.1 L ABG HCO3 29.9 H ABG O2 Sat (Measured) 93.1 ABG O2 Content 9.6 L* ABG Base Excess 4.9 H Issac Test Positive O2 Delivery Device Mech vent Oxygen Flow Rate 100% Vent Mode A/c Vent Rate 18 Mechanical Rate Yes PEEP 10.0 Pressure Support Vent 450 Sodium 141 Potassium 4.3 Chloride 99 Carbon Dioxide 33 H Anion Gap 9 BUN 90 H Creatinine 3.4 H D Creat Clearance w eGFR 17.84 POC Glucometer Random Glucose 118 H D Calcium 7.5 L Phosphorus 4.4 Magnesium 2.7 H Total Bilirubin 0.5 D AST 15 ALT 6 L D Alkaline Phosphatase 66 Total Protein 4.5 L Albumin 1.8 L 09/02/16 09/02/16 09/02/16 05:30 06:06 07:35 WBC 16.8 H RBC 2.76 L Hgb 7.7 L Hct 24.9 L MCV 90.2 MCHC 30.8 L RDW 17.5 H Plt Count 299 D MPV 8.4 Neutrophils % 92.3 H Lymphocytes % 4.1 L D Monocytes % 2.7 L Eosinophils % 0.7 D Basophils % 0.2 PTT (Actin FS) Puncture Site Right radial ABG pH 7.36 ABG pCO2 at Pt Temp 55.7 H ABG pO2 at Pt Temp 196.0 H* D ABG HCO3 30.7 H ABG O2 Sat (Measured) 99.9 H* ABG O2 Content 11.2 L ABG Base Excess 5.0 H Issac Test Positive O2 Delivery Device Mec.vent Oxygen Flow Rate 100% Vent Mode A/c Vent Rate 18 Mechanical Rate Esprit PEEP 10.0 Pressure Support Vent 450 Sodium Potassium Chloride Carbon Dioxide Anion Gap BUN Creatinine Creat Clearance w eGFR POC Glucometer 144.99925 Random Glucose Calcium Phosphorus Magnesium Total Bilirubin AST ALT Alkaline Phosphatase Total Protein Albumin ASSESSMENT/PLAN: Acute on chronic Respiratory Failure HTN HLD CAD S/P PCI Diastolic CHF AFIB COPD DVT / PE BD TX Steroids Daily assessment for need for Diuresis Aspiration precautions Monitor CT output ABX per ID BD TX Normal transfusion thresholds Glycemic control Should ideally be DNR/DNI Dr Vasquez Critical care time spent in reviewing chart, evaluating patient and formulating plan 40 min
--- NOTE | 2016-09-02 09:56 | PN ---
Progress Note, Physician - Current Medication List Current Medications: Active Medications Acetylcysteine (Mucomyst 20 Oral / Inh Use Only*) 600 mg NEB QIDR [facility] Last Admin: 09/02/16 05:45 Dose: 600 mg Albuterol Sulfate (Ventolin 0.083% Nebulizer Soln -) 1 amp NEB QIDR [facility] Last Admin: 09/02/16 05:45 Dose: 1 amp Atorvastatin Calcium (Lipitor -) 20 mg PO HS [facility] Last Admin: 09/01/16 23:02 Dose: 20 mg Bupropion HCl (Wellbutrin Xl -) 150 mg PO DAILY [facility] Last Admin: 09/01/16 12:38 Dose: 150 mg Docusate Sodium (Colace -) 100 mg PO BID [facility] Last Admin: 09/01/16 23:37 Dose: Not Given Duloxetine HCl (Cymbalta -) 60 mg PO DAILY [facility] Last Admin: 09/01/16 12:23 Dose: 60 mg Epoetin Keith (Procrit -) 10,000 unit IVPUSH MoWeFr@10 [facility] Last Admin: 09/01/16 12:32 Dose: 10,000 unit Ferrous Sulfate (Feosol -) 325 mg PO BID [facility] Last Admin: 08/31/16 11:49 Dose: Not Given Guaifenesin (Mucinex -) 600 mg PO BID PRN Heparin Sodium (Porcine) (Heparin -) 1,000 unit IVPUSH PRN PRN PRN Reason: Heparin Heparin Sodium (Porcine) (Heparin -) 5,000 unit IVPUSH PRN PRN PRN Reason: Heparin Heparin Sodium (Porcine) 25, (000 unit/ Sodium Chloride) 500 mls @ 20 mls/hr IV TITR [facility]; 1,000 UNIT/HR PRN Reason: Protocol Last Admin: 09/01/16 12:29 Dose: 16 mls/hr Ertapenem 1 gm/ Sodium (Chloride) 50 mls @ 100 mls/hr IVPB DAILY [facility] PRN Reason: Protocol Last Admin: 09/01/16 12:36 Dose: 100 mls/hr Pantoprazole Sodium (Protonix 40mg Ivpb (Pre-Docked)) 100 mls @ 200 mls/hr IVPB DAILY [facility] Last Admin: 09/01/16 12:22 Dose: 200 mls/hr Propofol (Diprivan -) 100 mls @ 2.696 mls/hr IVPB TITR [facility]; 5 MCG/KG/MIN PRN Reason: Protocol Last Admin: 09/01/16 12:25 Dose: 5.4 mls/hr Norepinephrine Bitartrate 8, (000 mcg/ Dextrose) 500 mls @ 18.75 mls/hr IV TITR [facility]; 5 MCG/MIN PRN Reason: Protocol Last Admin: 09/02/16 05:10 Dose: 60 mls/hr Amiodarone HCl 450 mg/ (Dextrose) 250 mls @ 33.33 mls/hr IVPB TITR [facility]; 1 MG/ MIN PRN Reason: Protocol Stop: 09/02/16 12:00 Last Admin: 09/02/16 06:55 Dose: 33.33 mls/hr Insulin Aspart (Novolog Vial Sliding Scale -) 1 vial SQ ACHS [facility] PRN Reason: Protocol Last Admin: 09/02/16 07:00 Dose: Not Given Methylprednisolone Sodium Succinate (Solu-Medrol -) 40 mg IVPB BID [facility] Last Admin: 09/01/16 23:02 Dose: 40 mg Metoprolol Tartrate (Lopressor -) 25 mg PO BID [facility] Last Admin: 09/01/16 23:02 Dose: 25 mg Nystatin (Nystop Powder -) 1 applic TP DAILY [facility] Last Admin: 08/31/16 11:30 Dose: 1 applic Polyethylene Glycol (Miralax (For Daily Use) -) 17 gm PO DAILY [facility] Last Admin: 09/01/16 12:27 Dose: 17 gm Senna (Senna -) 2 tab PO DAILY PRN PRN Reason: CONSTIPATION Last Admin: 09/01/16 12:23 Dose: 2 tab Sodium Chloride ([place] Nasal [place] -) 2 spray NS Q12H PRN PRN Reason: NASAL CONGESTION Tamsulosin HCl (Flomax -) 0.4 mg PO DAILY@0830 [facility] Last Admin: 09/01/16 12:24 Dose: Not Given - Objective Vital Signs: Vital Signs Temperature 98.2 F 09/02/16 08:00 Pulse Rate 128 H 09/02/16 08:00 Respiratory Rate 18 09/02/16 09:15 Blood Pressure 112/66 09/02/16 08:00 O2 Sat by Pulse Oximetry (%) 98 09/02/16 09:00 Eyes: Yes: WNL, Conjunctiva Clear, EOM Intact HENT: Yes: WNL, Atraumatic, Normocephalic Neck: Yes: WNL, Supple, Trachea Midline Cardiovascular: Yes: Pulse Irregular, S1, S2 Respiratory: Yes: Mechanically Ventilated Gastrointestinal: Yes: WNL, Normal Bowel Sounds Genitourinary: Yes: WNL Musculoskeletal: Yes: WNL Extremities: Yes: WNL Edema: Yes Edema: LUE: 2+, RUE: 2+ Integumentary: Yes: WNL Neurological: Yes: WNL, Alert, Oriented ...Motor Strength: WNL Psychiatric: Yes: WNL Labs: CBC, BMP 09/02/16 05:30 09/02/16 05:30 INR, PTT INR 1.22 (0.82-1.09) H 08/27/16 06:00
[2016-09-02] MEDS ORDERED: PT OWN MED DRAWER 7, Y5N ONE (09:59)
[2016-09-02] MEDS: PANTOPRAZOLE SODIUM 100 ML IVPB SCH (10:06)
[2016-09-02] MEDS: DULoxetine HCL 30 MG CAPSULE.DR (FP) PO SCH (10:07)
[2016-09-02] MEDS: METOPROLOL TARTRATE 25 MG TABLET (FP) PO SCH ×2 (10:07→22:38)
[2016-09-02] MEDS: methylPREDNISolone NA SUCC 40 MG/1 ML VIAL IVPB SCH ×2 (10:07→22:39)
[2016-09-02] MEDS: DOCUSATE SODIUM 100 MG CAPSULE (FP) PO SCH ×2 (10:08→22:38)
[2016-09-02] MEDS: TAMSULOSIN HCL 0.4 MG CAP.ER.24H (FP) PO SCH (10:09)
[2016-09-02] MEDS: ERTAPENEM SODIUM 1 GM in SODIUM CHLORIDE 50 ML IVPB SCH (10:12)
[2016-09-02] MEDS: PROPOFOL 100 ML IVPB SCH (10:21)
[2016-09-02] MEDS: POLYETHYLENE GLYCOL 3350 119 GM BTL PO SCH (10:22)
--- NOTE | 2016-09-02 10:23 | PN ---
Physical Exam: SUBJECTIVE: Patient seen and examined during sedation interlude. OBJECTIVE: 24 hours events: --intubated --cardogenic shock --pressors --amiodarone drip --digoxin started Vital Signs Period Temp Pulse Resp BP Sys/[place] Pulse Ox Last 24 Hr 97.8 F-98.2 F 88-148 17- 54-118/38-90 97-98 GENERAL/NEURO: The patient is intubated. Opens eyes to voice, follows commands, moving all extremities. No focal deficits. LUNGS: Coarse breath sounds bilaterally; tachypnic HEART: Irregular, S1, S2 ABDOMEN: Soft, nontender, nondistended, normoactive bowel sounds, no guarding, no rebound EXTREMITIES: 2+ pulses, warm, well-perfused, no edema. Laboratory Results - last 24 hr 08/31/16 08/31/16 09/01/16 11:23 19:19 05:18 WBC RBC Hgb Hct MCV MCHC RDW Plt Count MPV Neutrophils % Lymphocytes % Monocytes % Eosinophils % Basophils % PTT (Actin FS) Puncture Site ABG pH ABG pCO2 at Pt Temp ABG pO2 at Pt Temp ABG HCO3 ABG O2 Sat (Measured) ABG O2 Content ABG Base Excess Issac Test O2 Delivery Device Oxygen Flow Rate Vent Mode Vent Rate Mechanical Rate PEEP Pressure Support Vent Sodium 147 H Potassium 4.2 Chloride 104 Carbon Dioxide 34 H Anion Gap 9 BUN 82 H Creatinine 2.4 H Creat Clearance w eGFR 26.67 POC Glucometer 160.49753 272.43895 Random Glucose 169 H Calcium 8.1 L Phosphorus Magnesium Total Bilirubin 0.3 D AST 13 L ALT 9 L Alkaline Phosphatase 69 Total Protein 4.9 L Albumin 2.1 L 09/01/16 09/01/16 09/01/16 16:10 17:41 23:32 WBC RBC Hgb Hct MCV MCHC RDW Plt Count MPV Neutrophils % Lymphocytes % Monocytes % Eosinophils % Basophils % PTT (Actin FS) Puncture Site Right radial ABG pH 7.40 ABG pCO2 at Pt Temp 55.0 H ABG pO2 at Pt Temp 58.2 L D ABG HCO3 33.2 H ABG O2 Sat (Measured) 90.4 ABG O2 Content 9.6 L* ABG Base Excess 7.9 H Issac Test Positive O2 Delivery Device Vent Oxygen Flow Rate 75 Vent Mode A/c Vent Rate 18 Mechanical Rate Yes PEEP 10.0 Pressure Support Vent 450 Sodium Potassium Chloride Carbon Dioxide Anion Gap BUN Creatinine Creat Clearance w eGFR POC Glucometer 123.14888 101.93237 Random Glucose Calcium Phosphorus Magnesium Total Bilirubin AST ALT Alkaline Phosphatase Total Protein Albumin 09/02/16 09/02/16 09/02/16 05:06 05:30 05:30 WBC RBC Hgb Hct MCV MCHC RDW Plt Count MPV Neutrophils % Lymphocytes % Monocytes % Eosinophils % Basophils % PTT (Actin FS) 45.4 H Puncture Site Right radial ABG pH 7.39 ABG pCO2 at Pt Temp 50.3 H ABG pO2 at Pt Temp 68.1 L ABG HCO3 29.9 H ABG O2 Sat (Measured) 93.1 ABG O2 Content 9.6 L* ABG Base Excess 4.9 H Issac Test Positive O2 Delivery Device [facility] vent Oxygen Flow Rate 100% Vent Mode A/c Vent Rate 18 Mechanical Rate Yes PEEP 10.0 Pressure Support Vent 450 Sodium 141 Potassium 4.3 Chloride 99 Carbon Dioxide 33 H Anion Gap 9 BUN 90 H Creatinine 3.4 H D Creat Clearance w eGFR 17.84 POC Glucometer Random Glucose 118 H D Calcium 7.5 L Phosphorus 4.4 Magnesium 2.7 H Total Bilirubin 0.5 D AST 15 ALT 6 L D Alkaline Phosphatase 66 Total Protein 4.5 L Albumin 1.8 L 09/02/16 09/02/16 09/02/16 05:30 06:06 07:35 WBC 16.8 H RBC 2.76 L Hgb 7.7 L Hct 24.9 L MCV 90.2 MCHC 30.8 L RDW 17.5 H Plt Count 299 D MPV 8.4 Neutrophils % 92.3 H Lymphocytes % 4.1 L D Monocytes % 2.7 L Eosinophils % 0.7 D Basophils % 0.2 PTT (Actin FS) Puncture Site Right radial ABG pH 7.36 ABG pCO2 at Pt Temp 55.7 H ABG pO2 at Pt Temp 196.0 H* D ABG HCO3 30.7 H ABG O2 Sat (Measured) 99.9 H* ABG O2 Content 11.2 L ABG Base Excess 5.0 H Issac Test Positive O2 Delivery Device Mec.vent Oxygen Flow Rate 100% Vent Mode A/c Vent Rate 18 Mechanical Rate Esprit PEEP 10.0 Pressure Support Vent 450 Sodium Potassium Chloride Carbon Dioxide Anion Gap BUN Creatinine Creat Clearance w eGFR POC Glucometer 144.12068 Random Glucose Calcium Phosphorus Magnesium Total Bilirubin AST ALT Alkaline Phosphatase Total Protein Albumin Active Medications Generic Name Dose Route Start Last Admin Trade Name Arieq PRN Reason Stop Dose Admin Acetylcysteine 600 mg 08/28/16 18:00 09/02/16 05:45 Mucomyst 20 Oral / Inh Use Only* NEB 600 mg QIDR [facility] Administration Albuterol Sulfate 1 amp 08/28/16 18:00 09/02/16 05:45 Ventolin 0.083% Nebulizer Soln - NEB 1 amp QIDR [facility] Administration Atorvastatin Calcium 20 mg 08/28/16 22:00 09/01/16 23:02 Lipitor - PO 20 mg HS [facility] Administration Bupropion HCl 150 mg 08/29/16 10:00 09/02/16 10:08 Wellbutrin Xl - PO 150 mg DAILY [facility] Administration Docusate Sodium 100 mg 08/28/16 22:00 09/02/16 10:08 Colace - PO Not Given BID [facility] Duloxetine HCl 60 mg 08/29/16 10:00 09/02/16 10:07 Cymbalta - PO 60 mg DAILY [facility] Administration Epoetin Keith 10,000 unit 08/30/16 10:00 09/01/16 12:32 Procrit - IVPUSH 10,000 unit MoWeFr@10 [facility] Administration Ferrous Sulfate 325 mg 08/28/16 22:00 08/31/16 11:49 Feosol - PO Not Given BID [facility] Guaifenesin 600 mg 08/28/16 14:22 Mucinex - PO BID PRN Heparin Sodium (Porcine) 1,000 unit 08/28/16 14:22 09/02/16 10:06 Heparin - IVPUSH 1,000 unit PRN PRN Administration Heparin Heparin Sodium (Porcine) 5,000 unit 08/28/16 14:22 Heparin - IVPUSH PRN PRN Heparin Heparin Sodium (Porcine) 25, 500 mls @ 20 mls/hr 08/28/16 14:22 09/01/16 12:29 000 unit/ Sodium Chloride IV 16 mls/hr TITR [facility] Administration Protocol 1,000 UNIT/HR Ertapenem 1 gm/ Sodium 50 mls @ 100 mls/hr 08/30/16 10:00 09/02/16 10:12 Chloride IVPB 100 mls/hr DAILY [facility] Administration Protocol Pantoprazole Sodium 100 mls @ 200 mls/hr 08/31/16 12:00 09/02/16 10:06 Protonix 40mg Ivpb (Pre-Docked) IVPB 200 mls/hr DAILY [facility] Administration Propofol 100 mls @ 2.696 mls/hr 09/01/16 09:45 09/02/16 10:21 Diprivan - IVPB 5.391 mls/hr TITR [facility] Administration Protocol 5 MCG/KG/MIN Norepinephrine Bitartrate 8, 500 mls @ 18.75 mls/hr 09/02/16 04:45 09/02/16 10: 10 000 mcg/ Dextrose IV 56.25 mls/hr TITR [facility] Administration Protocol 5 MCG/MIN Amiodarone HCl 450 mg/ 250 mls @ 33.33 mls/hr 09/02/16 06:00 09/02/16 06:55 Dextrose IVPB 09/02/16 12:00 33.33 mls/hr TITR [facility] Administration Protocol 1 MG/MIN Insulin Aspart 1 vial 08/28/16 16:30 09/02/16 07:00 Novolog Vial Sliding Scale - SQ Not Given ACHS [facility] Protocol Methylprednisolone Sodium Succinate 40 mg 09/01/16 22:00 09/02/16 10:07 Solu-Medrol - IVPB 40 mg BID [facility] Administration Metoprolol Tartrate 25 mg 08/28/16 22:00 09/02/16 10:07 Lopressor - PO Not Given BID [facility] Nystatin 1 applic 08/29/16 10:00 08/31/16 11:30 Nystop Powder - TP 1 applic DAILY [facility] Administration Polyethylene Glycol 17 gm 08/29/16 10:00 09/02/16 10:22 Miralax (For Daily Use) - PO 17 gm DAILY [facility] Administration Senna 2 tab 08/28/16 14:22 09/01/16 12:23 Senna - PO 2 tab DAILY PRN Administration CONSTIPATION Sodium Chloride 2 spray 08/28/16 14:22 [place] Nasal [place] - NS Q12H PRN NASAL CONGESTION Tamsulosin HCl 0.4 mg 08/29/16 08:30 09/02/16 10:09 Flomax - PO Not Given DAILY@0830 [facility] ASSESSMENT/PLAN 75 year-old male with a significant PMH of HTN, HLD, CAD s/p stents x 2 (2014), diastolic heart failure, afib, COPD, recurrent episodes of respiratory failure requiring intubation, h/o GI bleed, h/o DVT and PE, CKD previously requiring HD , urinary retention with chronic lilly. Acute on chronic hypoxic and hypercapnic respiratory failure --intubated 09/02 Cardiogenic shock secondary to paroxysmal atrial fibrillation with RVR --rate to 140's on high-dose norepinephrine --switch to phenylephrine to help with tachycardia --continue amiodarone drip --digoxin x 1 dose given --on heparin drip Asthma/COPD --IV steroids --duonebs, mucomyst Acute on chronic diastolic heart failure --Echo: LV function normal, EF 57%; RV function normal; trace MR, trace TR --bilateral pleural effusions s/p bilateral pigtails both to gravity --continue to hold diuretics due to KARLOS and since respiratory status is at baseline Acute on chronic renal failure --Cr bumped from 2.3-->3.4 from cardiogenic shock/hypotension --UOP ~50cc/hr over past 24 hours --keep MAP >65 --CVP reading q6h HCAP --08/25 CXR: RLL consolidation --afebrile; persistent leukocytosis --continue Ertapenem Blood loss anemia --h/h stable --seen and evaluated by Dr. Fry who thinks active bleeding component; he presented patient with risks/benefits of EGD/colon; patient declines these interventions --protonix PO BID Hypertension --BP well-controlled --continued amlodipine, metoprolol Hyperlipidemia --continue Lipitor CAD s/p stents --continue ASA, Lipitor h/o DVT and PE --on heparin drip Hypernatremia, resolved F/E/N Fluids: D51/2NS @ 43mL/hr Electrolytes: replete as indicated Nutrition: NPO DVT prophylaxis: on heparin drip Dispo: continues to require ICU level care. Full Code. Visit type - Emergency Visit Emergency Visit: Yes ED Registration Date: 08/23/16 Care time: The patient presented to the Emergency Department on the above date and was hospitalized for further evaluation of their emergent condition. - New Patient This patient is new to me today: No - Critical Care Critical Care patient: Yes Total Critical Care Time (in minutes): 90 Critical Care Statement: The care of this patient involved high complexity decision making to prevent further life threatening deterioration of the patient 's condition and/or to evalute & treat vital organ system(s) failure or risk of failure.
[2016-09-02] MEDS: HEPARIN - 25,000 UNIT in SODIUM CHLORIDE 495 ML IV SCH ×2 (10:49→15:40)
--- NOTE | 2016-09-02 10:52 | PN ---
Progress Note, Physician History of Present Illness: patient stable events noted patient had hypoxic failure had to be intubated - Current Medication List Current Medications: Active Medications Acetylcysteine (Mucomyst 20 Oral / Inh Use Only*) 600 mg NEB QIDR [facility] Last Admin: 09/02/16 05:45 Dose: 600 mg Albuterol Sulfate (Ventolin 0.083% Nebulizer Soln -) 1 amp NEB QIDR [facility] Last Admin: 09/02/16 05:45 Dose: 1 amp Atorvastatin Calcium (Lipitor -) 20 mg PO HS [facility] Last Admin: 09/01/16 23:02 Dose: 20 mg Bupropion HCl (Wellbutrin Xl -) 150 mg PO DAILY [facility] Last Admin: 09/02/16 10:08 Dose: 150 mg Digoxin (Lanoxin Injection -) 0.125 mg IVPUSH ONCE ONE Stop: 09/02/16 11:01 Docusate Sodium (Colace -) 100 mg PO BID [facility] Last Admin: 09/02/16 10:08 Dose: Not Given Duloxetine HCl (Cymbalta -) 60 mg PO DAILY [facility] Last Admin: 09/02/16 10:07 Dose: 60 mg Epoetin Keith (Procrit -) 10,000 unit IVPUSH MoWeFr@10 [facility] Last Admin: 09/01/16 12:32 Dose: 10,000 unit Ferrous Sulfate (Feosol -) 325 mg PO BID [facility] Last Admin: 08/31/16 11:49 Dose: Not Given Guaifenesin (Mucinex -) 600 mg PO BID PRN Heparin Sodium (Porcine) (Heparin -) 1,000 unit IVPUSH PRN PRN PRN Reason: Heparin Last Admin: 09/02/16 10:06 Dose: 1,000 unit Heparin Sodium (Porcine) (Heparin -) 5,000 unit IVPUSH PRN PRN PRN Reason: Heparin Heparin Sodium (Porcine) 25, (000 unit/ Sodium Chloride) 500 mls @ 20 mls/hr IV TITR [facility]; 1,000 UNIT/HR PRN Reason: Protocol Last Admin: 09/02/16 10:49 Dose: 18 mls/hr Ertapenem 1 gm/ Sodium (Chloride) 50 mls @ 100 mls/hr IVPB DAILY [facility] PRN Reason: Protocol Last Admin: 09/02/16 10:12 Dose: 100 mls/hr Pantoprazole Sodium (Protonix 40mg Ivpb (Pre-Docked)) 100 mls @ 200 mls/hr IVPB DAILY [facility] Last Admin: 09/02/16 10:06 Dose: 200 mls/hr Propofol (Diprivan -) 100 mls @ 2.696 mls/hr IVPB TITR [facility]; 5 MCG/KG/MIN PRN Reason: Protocol Last Admin: 09/02/16 10:21 Dose: 5.391 mls/hr Norepinephrine Bitartrate 8, (000 mcg/ Dextrose) 500 mls @ 18.75 mls/hr IV TITR [facility]; 5 MCG/MIN PRN Reason: Protocol Last Admin: 09/02/16 10:10 Dose: 56.25 mls/hr Amiodarone HCl 450 mg/ (Dextrose) 250 mls @ 33.33 mls/hr IVPB TITR [facility]; 1 MG/ MIN PRN Reason: Protocol Stop: 09/02/16 12:00 Last Admin: 09/02/16 06:55 Dose: 33.33 mls/hr Insulin Aspart (Novolog Vial Sliding Scale -) 1 vial SQ ACHS [facility] PRN Reason: Protocol Last Admin: 09/02/16 07:00 Dose: Not Given Methylprednisolone Sodium Succinate (Solu-Medrol -) 40 mg IVPB BID [facility] Last Admin: 09/02/16 10:07 Dose: 40 mg Metoprolol Tartrate (Lopressor -) 25 mg PO BID [facility] Last Admin: 09/02/16 10:07 Dose: Not Given Nystatin (Nystop Powder -) 1 applic TP DAILY [facility] Last Admin: 08/31/16 11:30 Dose: 1 applic Polyethylene Glycol (Miralax (For Daily Use) -) 17 gm PO DAILY [facility] Last Admin: 09/02/16 10:22 Dose: 17 gm Senna (Senna -) 2 tab PO DAILY PRN PRN Reason: CONSTIPATION Last Admin: 09/01/16 12:23 Dose: 2 tab Sodium Chloride ([place] Nasal [place] -) 2 spray NS Q12H PRN PRN Reason: NASAL CONGESTION Tamsulosin HCl (Flomax -) 0.4 mg PO DAILY@0830 [facility] Last Admin: 09/02/16 10:09 Dose: Not Given - Objective Vital Signs: Vital Signs Temperature 98.2 F 09/02/16 08:00 Pulse Rate 148 H 09/02/16 10:10 Respiratory Rate 18 09/02/16 09:15 Blood Pressure 100/52 09/02/16 10:10 O2 Sat by Pulse Oximetry (%) 98 09/02/16 09:00 Constitutional: Yes: Other Cardiovascular: Yes: Pulse Irregular Respiratory: Yes: Intubated, Mechanically Ventilated, Other (bilateral pig tail catheters) Gastrointestinal: Yes: Normal Bowel Sounds, Soft Musculoskeletal: Yes: Other Extremities: Yes: Other Neurological: Yes: Other Labs: CBC, BMP 09/02/16 05:30 09/02/16 05:30 INR, PTT INR 1.22 (0.82-1.09) H 08/27/16 06:00 Assessment/Plan - Problems (1) Acute and chronic respiratory failure with hypoxia Code(s): J96.21 - ACUTE AND CHRONIC RESPIRATORY FAILURE WITH HYPOXIA (2) Pneumonia Code(s): J18.9 - PNEUMONIA, UNSPECIFIED ORGANISM Qualifiers: Pneumonia type: due to unspecified organism Laterality: left Lung location: lower lobe of lung Qualified Code(s): J18.1 - Lobar pneumonia, unspecified organism (3) Pleural effusion Code(s): J90 - PLEURAL EFFUSION, NOT ELSEWHERE CLASSIFIED (4) Acute on chronic diastolic (congestive) heart failure Code(s): I50.33 - ACUTE ON CHRONIC DIASTOLIC (CONGESTIVE) HEART FAILURE (5) COPD (chronic obstructive pulmonary disease) Code(s): J44.9 - CHRONIC OBSTRUCTIVE PULMONARY DISEASE, UNSPECIFIED (6) Renal failure (ARF), acute on chronic Code(s): N17.9 - ACUTE KIDNEY FAILURE, UNSPECIFIED N18.9 - CHRONIC KIDNEY DISEASE, UNSPECIFIED (7) Diabetes Code(s): E11.9 - TYPE 2 DIABETES MELLITUS WITHOUT COMPLICATIONS Qualifiers: Diabetes mellitus type: type 2 Diabetes mellitus complication status: with kidney complications Diabetes mellitus complication detail: with chronic kidney disease (8) Atrial fibrillation Code(s): I48.91 - UNSPECIFIED ATRIAL FIBRILLATION 9 bilateral cellulitis of the legs plan continue current mgmt patient tapped pig tail catheter in place will monitor drainage await for other cx report patient now intubated cc time 40 min
--- NOTE | 2016-09-02 10:52 | PN ---
Progress Note (short form) - Note Progress Note: Renal Follow up for KARLOS/CKD Pt seen and examined in the ICU pt with hypotensive event overnight on pressers, intubated on Aminoadrone gtt for rapid afib Vital Signs Temperature 98.2 F 09/02/16 08:00 Pulse Rate 148 H 09/02/16 10:10 Respiratory Rate 18 09/02/16 09:15 Blood Pressure 100/52 09/02/16 10:10 O2 Sat by Pulse Oximetry (%) 98 09/02/16 09:00 Intake & Output 08/30/16 08/31/16 09/01/16 09/02/16 23:59 23:59 23:59 23:59 Intake Total 1212 2222.5 2248 870.8 Output Total 2720 2425 1000 390 Balance -1508 -202.5 1248 480.8 Weight 202 lb 2 oz 201 lb 0.985 oz 198 lb 1.6 oz 199 lb Gen: NAD on BIPAP CVS: RRR, No M/R Lungs: Course BS, no wheeze, no rales Abd: soft, obese, NT/ND Ext: Trace LE edema, no cyanosis or clubbing CBC, BMP 09/02/16 05:30 09/02/16 05:30 Laboratory Tests 09/02/16 05:30 Calcium 7.5 L Phosphorus 4.4 Magnesium 2.7 H Albumin 1.8 L Current Medications Acetylcysteine (Mucomyst 20 Oral / Inh Use Only*) 600 mg NEB QIDR [facility] Last Admin: 09/02/16 05:45 Dose: 600 mg Albuterol Sulfate (Ventolin 0.083% Nebulizer Soln -) 1 amp NEB QIDR [facility] Last Admin: 09/02/16 05:45 Dose: 1 amp Atorvastatin Calcium (Lipitor -) 20 mg PO HS [facility] Last Admin: 09/01/16 23:02 Dose: 20 mg Bupropion HCl (Wellbutrin Xl -) 150 mg PO DAILY [facility] Last Admin: 09/02/16 10:08 Dose: 150 mg Digoxin (Lanoxin Injection -) 0.125 mg IVPUSH ONCE ONE Stop: 09/02/16 11:01 Docusate Sodium (Colace -) 100 mg PO BID [facility] Last Admin: 09/02/16 10:08 Dose: Not Given Duloxetine HCl (Cymbalta -) 60 mg PO DAILY [facility] Last Admin: 09/02/16 10:07 Dose: 60 mg Epoetin Keith (Procrit -) 10,000 unit IVPUSH MoWeFr@10 [facility] Last Admin: 09/01/16 12:32 Dose: 10,000 unit Ferrous Sulfate (Feosol -) 325 mg PO BID [facility] Last Admin: 08/31/16 11:49 Dose: Not Given Guaifenesin (Mucinex -) 600 mg PO BID PRN Heparin Sodium (Porcine) (Heparin -) 1,000 unit IVPUSH PRN PRN PRN Reason: Heparin Last Admin: 09/02/16 10:06 Dose: 1,000 unit Heparin Sodium (Porcine) (Heparin -) 5,000 unit IVPUSH PRN PRN PRN Reason: Heparin Heparin Sodium (Porcine) 25, (000 unit/ Sodium Chloride) 500 mls @ 20 mls/hr IV TITR [facility]; 1,000 UNIT/HR PRN Reason: Protocol Last Admin: 09/02/16 10:49 Dose: 18 mls/hr Ertapenem 1 gm/ Sodium (Chloride) 50 mls @ 100 mls/hr IVPB DAILY [facility] PRN Reason: Protocol Last Admin: 09/02/16 10:12 Dose: 100 mls/hr Pantoprazole Sodium (Protonix 40mg Ivpb (Pre-Docked)) 100 mls @ 200 mls/hr IVPB DAILY [facility] Last Admin: 09/02/16 10:06 Dose: 200 mls/hr Propofol (Diprivan -) 100 mls @ 2.696 mls/hr IVPB TITR [facility]; 5 MCG/KG/MIN PRN Reason: Protocol Last Admin: 09/02/16 10:21 Dose: 5.391 mls/hr Norepinephrine Bitartrate 8, (000 mcg/ Dextrose) 500 mls @ 18.75 mls/hr IV TITR [facility]; 5 MCG/MIN PRN Reason: Protocol Last Admin: 09/02/16 10:10 Dose: 56.25 mls/hr Amiodarone HCl 450 mg/ (Dextrose) 250 mls @ 33.33 mls/hr IVPB TITR [facility]; 1 MG/ MIN PRN Reason: Protocol Stop: 09/02/16 12:00 Last Admin: 09/02/16 06:55 Dose: 33.33 mls/hr Insulin Aspart (Novolog Vial Sliding Scale -) 1 vial SQ ACHS [facility] PRN Reason: Protocol Last Admin: 09/02/16 07:00 Dose: Not Given Methylprednisolone Sodium Succinate (Solu-Medrol -) 40 mg IVPB BID [facility] Last Admin: 09/02/16 10:07 Dose: 40 mg Metoprolol Tartrate (Lopressor -) 25 mg PO BID [facility] Last Admin: 09/02/16 10:07 Dose: Not Given Nystatin (Nystop Powder -) 1 applic TP DAILY [facility] Last Admin: 08/31/16 11:30 Dose: 1 applic Polyethylene Glycol (Miralax (For Daily Use) -) 17 gm PO DAILY [facility] Last Admin: 09/02/16 10:22 Dose: 17 gm Senna (Senna -) 2 tab PO DAILY PRN PRN Reason: CONSTIPATION Last Admin: 09/01/16 12:23 Dose: 2 tab Sodium Chloride ([place] Nasal [place] -) 2 spray NS Q12H PRN PRN Reason: NASAL CONGESTION Tamsulosin HCl (Flomax -) 0.4 mg PO DAILY@0830 [facility] Last Admin: 09/02/16 10:09 Dose: Not Given A/P 75 year old Gentleman with PMhx of CKD (Hx of KARLOS requiring dialysis), Hypertension, COPD on O2, BPH, Gout, CAD, Diastolic CHF who presented from Rehab with acute Resp Failure and found to have KARLOS on CKD. #Acute on Chronic Renal Failure with suspected ATN cr manuel to 3.4 today in setting of shock/hypotension overnight Check Urine studies Trend Urine output, BUN/Cr Supportive care with MAP > 65 with vasopressers CVP monitoring if possible no acute indication for [employer] at this time #Hypernatremia no resolved #Resp Failure on BIPAP/Pleural effusion now intubated management as per ICU #Anemia Continue Epogen and iron #Shock/Cardiogenic with Rapid afib +/- Sepsis Care as per ICU Melvin Johnson DO
[2016-09-02] MEDS ORDERED: DIGOXIN 0.5 MG/2 ML AMPUL IVPUSH ONE (11:00)
[2016-09-02] MEDS: NYSTATIN POWDER 100,000 UNITS/GM - 15 GM TOPICAL POWDER TP SCH ×2 (15:39→15:40)
[2016-09-02] MEDS ORDERED: PHENYLEPHRINE HCL 10 MG/1 ML SINGLE DOSE VIAL ONE ×2 (15:42→20:39)
[2016-09-02] MEDS ORDERED: DEXTROSE 5%-0.45% SALINE 1,000 ML IV SCH (15:45)
[2016-09-02] MEDS: PHENYLEPHRINE HCL 20,000 MCG in SODIUM CHLORIDE 248 ML IVPB SCH ×2 (16:42→20:00)
[2016-09-02] MEDS: ATORVASTATIN CA 20 MG TABLET (FP) PO SCH (22:38)
[2016-09-03] MEDS ORDERED: PHENYLEPHRINE HCL 10 MG/1 ML SINGLE DOSE VIAL ONE (02:34)
[2016-09-03] MEDS ORDERED: PROPOFOL 100 ML ONE (05:01)
[2016-09-03] MEDS ORDERED: HEMOQUE TEST 1 EACH EACH ONE (05:53)
[2016-09-03 06:13] LABS: MCH 27.5 pg (25.7-33.7); MCHC 31.1 g/dl (32.0-35.9); MEAN CELL VOLUME 88.4 fl (80-96); MEAN PLT VOLUME 7.8 fl (7.5-11.1); PLATELET COUNT 212 K/MM3 (134-434); RDW 16.7 % (11.9-15.9); WHITE BLOOD COUNT 15.1 K/mm3 (4.0-10.0)
[2016-09-03] MEDS: ALBUTEROL SO4 0.083% IH SOL 2.5 MG/3 ML VIAL.NEB. NEB SCH ×5 (06:45→23:44)
[2016-09-03] MEDS: ACETYLCYSTEINE 20% 200MG/ML 4 ML VIAL *FOR ORAL / INH USE ONLY NEB SCH ×5 (06:45→23:43)
[2016-09-03 07:16] LABS: ALBUMIN 1.5 g/dl (3.4-5.0); BILIRUBIN,TOTAL 0.4 mg/dL (0.2-1.0); CALCIUM 7.2 mg/dL (8.5-10.1); COCKROFT - GAULT 27.09; CREATININE 3.1 mg/dL (0.7-1.3); MAGNESIUM 2.6 mg/dL (1.8-2.4); PHOSPHOROUS 5.4 mg/dL (2.5-4.9); TOT PROT 3.9 g/dl (6.4-8.2)
--- NOTE | 2016-09-03 07:22 | PN ---
Progress Note (short form) - Note Progress Note: Renal Follow up for AKRLOS/CKD Pt seen and examined in the ICU intubated on 80% FiO2 sedated on Propfol on Amino gtt on Levophed CVP 16 last night as per nurse Vital Signs Temperature 97.8 F 09/03/16 06:00 Pulse Rate 57 L 09/03/16 06:00 Respiratory Rate 18 09/03/16 06:00 Blood Pressure 99/58 09/03/16 06:00 O2 Sat by Pulse Oximetry (%) 100 09/02/16 22:00 Intake & Output 08/31/16 09/01/16 09/02/16 09/03/16 23:59 23:59 23:59 23:59 Intake Total 2222.5 2248 2338.3 2364.0 Output Total 2425 1000 1000 550 Balance -202.5 1248 1338.3 1814.0 Weight 201 lb 0.985 oz 198 lb 1.6 oz 199 lb Gen: NAD intuabted CVS: RRR, No M/R Lungs: Course BS, no wheeze, no rales, B/L chest tubes Abd: soft, obese, NT/ND Ext: Trace LE edema, no cyanosis or clubbing CBC, BMP 09/03/16 05:45 Current Medications Acetylcysteine (Mucomyst 20 Oral / Inh Use Only*) 600 mg NEB QIDR [facility] Last Admin: 09/03/16 00:00 Dose: 600 mg Albuterol Sulfate (Ventolin 0.083% Nebulizer Soln -) 1 amp NEB QIDR [facility] Last Admin: 09/03/16 00:00 Dose: 1 amp Atorvastatin Calcium (Lipitor -) 20 mg PO HS [facility] Last Admin: 09/02/16 22:38 Dose: 20 mg Bupropion HCl (Wellbutrin Xl -) 150 mg PO DAILY [facility] Last Admin: 09/02/16 10:08 Dose: 150 mg Docusate Sodium (Colace Liquid -) 100 mg PO TID [facility] Duloxetine HCl (Cymbalta -) 60 mg PO DAILY [facility] Last Admin: 09/02/16 10:07 Dose: 60 mg Epoetin Keith (Procrit -) 10,000 unit IVPUSH MoWeFr@10 [facility] Last Admin: 09/01/16 12:32 Dose: 10,000 unit Heparin Sodium (Porcine) (Heparin -) 1,000 unit IVPUSH PRN PRN PRN Reason: Heparin Last Admin: 09/02/16 10:06 Dose: 1,000 unit Heparin Sodium (Porcine) (Heparin -) 5,000 unit IVPUSH PRN PRN PRN Reason: Heparin Heparin Sodium (Porcine) 25, (000 unit/ Sodium Chloride) 500 mls @ 20 mls/hr IV TITR [facility]; 1,000 UNIT/HR PRN Reason: Protocol Last Admin: 09/02/16 15:40 Dose: 18 mls/hr Ertapenem 1 gm/ Sodium (Chloride) 50 mls @ 100 mls/hr IVPB DAILY [facility] PRN Reason: Protocol Last Admin: 09/02/16 10:12 Dose: 100 mls/hr Pantoprazole Sodium (Protonix 40mg Ivpb (Pre-Docked)) 100 mls @ 200 mls/hr IVPB DAILY [facility] Last Admin: 09/02/16 10:06 Dose: 200 mls/hr Propofol (Diprivan -) 100 mls @ 2.696 mls/hr IVPB TITR [facility]; 5 MCG/KG/MIN PRN Reason: Protocol Last Admin: 09/02/16 10:21 Dose: 5.391 mls/hr Phenylephrine HCl 20,000 mcg/ (Sodium Chloride) 250 mls @ 75 mls/hr IVPB ASDIR [facility]; 100 MCG/MIN PRN Reason: Protocol Last Admin: 09/02/16 20:00 Dose: 75 mls/hr Amiodarone HCl 450 mg/ (Dextrose) 250 mls @ 16.66 mls/hr IVPB TITR [facility]; 0.5 MG/ MIN PRN Reason: Protocol Stop: 09/03/16 09:29 Last Admin: 09/02/16 17:25 Dose: 16.66 mls/hr Insulin Aspart (Novolog Vial Sliding Scale -) 1 vial SQ ACHS [facility] PRN Reason: Protocol Last Admin: 09/02/16 23:24 Dose: 3 units Methylprednisolone Sodium Succinate (Solu-Medrol -) 40 mg IVPB BID [facility] Last Admin: 09/02/16 22:39 Dose: 40 mg Metoprolol Tartrate (Lopressor -) 25 mg PO BID [facility] Last Admin: 09/02/16 22:38 Dose: Not Given Nystatin (Nystop Powder -) 1 applic TP DAILY [facility] Last Admin: 09/02/16 15:40 Dose: 1 applic Polyethylene Glycol (Miralax (For Daily Use) -) 17 gm PO DAILY [facility] Last Admin: 09/02/16 10:22 Dose: 17 gm Sodium Chloride ([place] Nasal [place] -) 2 spray NS Q12H PRN PRN Reason: NASAL CONGESTION Tamsulosin HCl (Flomax -) 0.4 mg PO DAILY@0830 [facility] Last Admin: 09/02/16 10:09 Dose: Not Given A/P 75 year old Gentleman with PMhx of CKD (Hx of KARLOS requiring dialysis), Hypertension, COPD on O2, BPH, Gout, CAD, Diastolic CHF who presented from Rehab with acute Resp Failure and found to have KARLOS on CKD. #Acute on Chronic Renal Failure with suspected ATN Todays labs pending keep MAP > 65 with Vasopressers CVP goal of 10-12 holding IVF as of this am given effusions and volume overload #Hypernatremia on oral water via NGT Na is now WNL #Resp Failure on BIPAP/Pleural effusion now intubated management as per ICU #Anemia Continue Epogen and iron Hgb 6.1 this am, will transfuse 2 prbc #Shock/Cardiogenic with Rapid afib +/- Sepsis Care as per ICU Melvin Johnson DO
[2016-09-03 07:51] LABS: ARTERIAL BLOOD GAS BASE EXCESS 2.2 meq/l (-2-2); ARTERIAL BLOOD GAS HCO3 27.6 meq/L (22-26)
[2016-09-03 07:56] LABS: ALLENS TEST POSITIVE; ART PUNCT SITE RIGHT RADIAL; LPM/O2% 80%; MECH. VENT. ESPRIT; PT. ON O2? YES; TYPE OF O2 MEC.VENT; VENT RATE 18; VT/PRESS 450
[2016-09-03 07:57] LABS: ARTERIAL BLOOD GAS pH 7.34 (7.35-7.45)
[2016-09-03] MEDS ORDERED: PT OWN MED DRAWER 7, Y5N ONE ×2 (09:04→22:44)
[2016-09-03] MEDS: INSULIN SLIDING SCALE (NOVOLOG) 1 VIAL SQ SCH ×4 (09:29→23:05)
[2016-09-03] MEDS: DOCUSATE NA 100 MG/10 ML UNIT-DOSE CUPS PO SCH ×3 (09:29→22:55)
[2016-09-03] MEDS: PANTOPRAZOLE SODIUM 100 ML IVPB SCH (09:30)
[2016-09-03] MEDS: TAMSULOSIN HCL 0.4 MG CAP.ER.24H (FP) PO SCH (09:30)
[2016-09-03] MEDS: NYSTATIN POWDER 100,000 UNITS/GM - 15 GM TOPICAL POWDER TP SCH (09:31)
[2016-09-03] MEDS: methylPREDNISolone NA SUCC 40 MG/1 ML VIAL IVPB SCH ×2 (09:31→22:55)
[2016-09-03] MEDS: DULoxetine HCL 30 MG CAPSULE.DR (FP) PO SCH (09:32)
[2016-09-03] MEDS: POLYETHYLENE GLYCOL 3350 119 GM BTL PO SCH (09:32)
[2016-09-03] MEDS: METOPROLOL TARTRATE 25 MG TABLET (FP) PO SCH ×2 (09:32→22:55)
[2016-09-03] MEDS: PROPOFOL 100 ML IVPB SCH (09:33)
[2016-09-03] MEDS: ERTAPENEM SODIUM 1 GM in SODIUM CHLORIDE 50 ML IVPB SCH (09:48)
--- NOTE | 2016-09-03 10:10 | PN ---
Progress Note (short form) - Note Progress Note: Patient seen and examined in the ICU. Remains intubated and sedated. AC Mode of vent 80% FiO2. Changed to Phyenlephrine (50mcq). HR better controlled CXR: pending Intake & Output 08/31/16 09/01/16 09/02/16 09/03/16 23:59 23:59 23:59 23:59 Intake Total 2222.5 2248 2338.3 2364.0 Output Total 2425 1000 1000 550 Balance -202.5 1248 1338.3 1814.0 Weight 201 lb 0.985 oz 198 lb 1.6 oz 199 lb 206 lb Last Vital Signs Temp Pulse Resp BP Pulse Ox 98 F 64 18 120/60 98 09/03/16 09:00 09/03/16 09:00 09/03/16 10:02 09/03/16 09:00 09/03/16 09:00 Active Medications Acetylcysteine (Mucomyst 20 Oral / Inh Use Only*) 600 mg NEB QIDR [facility] Last Admin: 09/03/16 06:45 Dose: 600 mg Albuterol Sulfate (Ventolin 0.083% Nebulizer Soln -) 1 amp NEB QIDR [facility] Last Admin: 09/03/16 06:45 Dose: 1 amp Atorvastatin Calcium (Lipitor -) 20 mg PO HS [facility] Last Admin: 09/02/16 22:38 Dose: 20 mg Bupropion HCl (Wellbutrin Xl -) 150 mg PO DAILY [facility] Last Admin: 09/03/16 09:31 Dose: 150 mg Docusate Sodium (Colace Liquid -) 100 mg PO TID [facility] Last Admin: 09/03/16 09:29 Dose: 100 mg Duloxetine HCl (Cymbalta -) 60 mg PO DAILY [facility] Last Admin: 09/03/16 09:32 Dose: 60 mg Epoetin Keith (Procrit -) 10,000 unit IVPUSH MoWeFr@10 [facility] Last Admin: 09/01/16 12:32 Dose: 10,000 unit Heparin Sodium (Porcine) (Heparin -) 1,000 unit IVPUSH PRN PRN PRN Reason: Heparin Last Admin: 09/02/16 10:06 Dose: 1,000 unit Heparin Sodium (Porcine) (Heparin -) 5,000 unit IVPUSH PRN PRN PRN Reason: Heparin Heparin Sodium (Porcine) 25, (000 unit/ Sodium Chloride) 500 mls @ 20 mls/hr IV TITR [facility]; 1,000 UNIT/HR PRN Reason: Protocol Last Admin: 09/02/16 15:40 Dose: 18 mls/hr Ertapenem 1 gm/ Sodium (Chloride) 50 mls @ 100 mls/hr IVPB DAILY [facility] PRN Reason: Protocol Last Admin: 09/03/16 09:48 Dose: 100 mls/hr Pantoprazole Sodium (Protonix 40mg Ivpb (Pre-Docked)) 100 mls @ 200 mls/hr IVPB DAILY [facility] Last Admin: 09/03/16 09:30 Dose: 200 mls/hr Propofol (Diprivan -) 100 mls @ 2.696 mls/hr IVPB TITR [facility]; 5 MCG/KG/MIN PRN Reason: Protocol Last Admin: 09/03/16 09:33 Dose: 5.391 mls/hr Phenylephrine HCl 20,000 mcg/ (Sodium Chloride) 250 mls @ 75 mls/hr IVPB ASDIR [facility]; 100 MCG/MIN PRN Reason: Protocol Last Admin: 09/02/16 20:00 Dose: 75 mls/hr Insulin Aspart (Novolog Vial Sliding Scale -) 1 vial SQ ACHS [facility] PRN Reason: Protocol Last Admin: 09/03/16 09:29 Dose: 3 units Methylprednisolone Sodium Succinate (Solu-Medrol -) 40 mg IVPB BID [facility] Last Admin: 09/03/16 09:31 Dose: 40 mg Metoprolol Tartrate (Lopressor -) 25 mg PO BID [facility] Last Admin: 09/03/16 09:32 Dose: 25 mg Nystatin (Nystop Powder -) 1 applic TP DAILY [facility] Last Admin: 09/03/16 09:31 Dose: 1 applic Polyethylene Glycol (Miralax (For Daily Use) -) 17 gm PO DAILY [facility] Last Admin: 09/03/16 09:32 Dose: 17 gm Sodium Chloride ([place] Nasal [place] -) 2 spray NS Q12H PRN PRN Reason: NASAL CONGESTION Tamsulosin HCl (Flomax -) 0.4 mg PO DAILY@0830 [facility] Last Admin: 09/03/16 09:30 Dose: 0.4 mg GENERAL: Intubated and sedated HEENT: (-) icterus, dry membranes LUNGS: Scattered bilateral ronchi & bibasilar crackles noted. No wheezes. HEART: S1 and S2, (+) ESM ABDOMEN: Soft, obese, NT, ND, no guarding, no rebound, no masses. No hepatomegaly or splenomegaly. EXTREMITIES: 2+ pulses, (+) Edema NEUROLOGICAL: Sedated SKIN: Bilateral lower ext with skin discoloration with dark yellow patches and venous stasis. No signs of fluid overload. Laboratory Results - last 24 hr 09/02/16 09/02/16 09/02/16 11:21 16:57 17:00 WBC RBC Hgb Hct MCV MCHC RDW Plt Count MPV PTT (Actin FS) 59.8 H D Puncture Site ABG pH ABG pCO2 at Pt Temp ABG pO2 at Pt Temp ABG HCO3 ABG O2 Sat (Measured) ABG O2 Content ABG Base Excess Issac Test O2 Delivery Device Oxygen Flow Rate Vent Mode Vent Rate Mechanical Rate PEEP Pressure Support Vent Sodium Potassium Chloride Carbon Dioxide Anion Gap BUN Creatinine Creat Clearance w eGFR POC Glucometer 159.13445 188.34046 Random Glucose Calcium Phosphorus Magnesium Total Bilirubin AST ALT Alkaline Phosphatase Total Protein Albumin Blood Type Antibody Screen Crossmatch 09/02/16 09/03/16 09/03/16 23:19 05:45 05:45 WBC 15.1 H RBC 2.21 L Hgb 6.1 L* D Hct 19.5 L D MCV 88.4 MCHC 31.1 L RDW 16.7 H Plt Count 212 D MPV 7.8 PTT (Actin FS) 64.2 H Puncture Site ABG pH ABG pCO2 at Pt Temp ABG pO2 at Pt Temp ABG HCO3 ABG O2 Sat (Measured) ABG O2 Content ABG Base Excess Issac Test O2 Delivery Device Oxygen Flow Rate Vent Mode Vent Rate Mechanical Rate PEEP Pressure Support Vent Sodium Potassium Chloride Carbon Dioxide Anion Gap BUN Creatinine Creat Clearance w eGFR POC Glucometer 206.03135 Random Glucose Calcium Phosphorus Magnesium Total Bilirubin AST ALT Alkaline Phosphatase Total Protein Albumin Blood Type Antibody Screen Crossmatch 09/03/16 09/03/16 09/03/16 05:45 05:55 07:17 WBC RBC Hgb Hct MCV MCHC RDW Plt Count MPV PTT (Actin FS) Puncture Site ABG pH ABG pCO2 at Pt Temp ABG pO2 at Pt Temp ABG HCO3 ABG O2 Sat (Measured) ABG O2 Content ABG Base Excess Issac Test O2 Delivery Device Oxygen Flow Rate Vent Mode Vent Rate Mechanical Rate PEEP Pressure Support Vent Sodium 139 Potassium 4.5 Chloride 98 Carbon Dioxide 31 Anion Gap 10 BUN 90 H Creatinine 3.1 H Creat Clearance w eGFR 19.85 POC Glucometer 186.32191 Random Glucose 151 H D Calcium 7.2 L Phosphorus 5.4 H D Magnesium 2.6 H Total Bilirubin 0.4 AST 16 ALT 6 L Alkaline Phosphatase 69 Total Protein 3.9 L Albumin 1.5 L Blood Type A POSITIVE Antibody Screen Negative Crossmatch See Detail 09/03/16 07:40 WBC RBC Hgb Hct MCV MCHC RDW Plt Count MPV PTT (Actin FS) Puncture Site Right radial ABG pH 7.34 L ABG pCO2 at Pt Temp 52.0 H ABG pO2 at Pt Temp 147.0 H D ABG HCO3 27.6 H ABG O2 Sat (Measured) 100.0 H* ABG O2 Content 9.6 L* ABG Base Excess 2.2 H Issac Test Positive O2 Delivery Device Mec.vent Oxygen Flow Rate 80% Vent Mode A/c Vent Rate 18 Mechanical Rate Esprit PEEP 10.0 Pressure Support Vent 450 Sodium Potassium Chloride Carbon Dioxide Anion Gap BUN Creatinine Creat Clearance w eGFR POC Glucometer Random Glucose Calcium Phosphorus Magnesium Total Bilirubin AST ALT Alkaline Phosphatase Total Protein Albumin Blood Type Antibody Screen Crossmatch ASSESSMENT/PLAN: Acute on chronic Respiratory Failure HTN HLD CAD S/P PCI Diastolic CHF AFIB COPD DVT / PE pRBCS BD TX Steroids ABX per ID Monitor CT output BD TX Normal transfusion thresholds Wean pressors Enteral feeds Glycemic control Should ideally be DNR/DNI Dr Vasquez Critical care time spent in reviewing chart, evaluating patient and formulating plan 40 min
--- NOTE | 2016-09-03 10:12 | PN ---
Progress Note, Physician - Current Medication List Current Medications: Active Medications Acetylcysteine (Mucomyst 20 Oral / Inh Use Only*) 600 mg NEB QIDR [facility] Last Admin: 09/03/16 06:45 Dose: 600 mg Albuterol Sulfate (Ventolin 0.083% Nebulizer Soln -) 1 amp NEB QIDR [facility] Last Admin: 09/03/16 06:45 Dose: 1 amp Atorvastatin Calcium (Lipitor -) 20 mg PO HS [facility] Last Admin: 09/02/16 22:38 Dose: 20 mg Bupropion HCl (Wellbutrin Xl -) 150 mg PO DAILY [facility] Last Admin: 09/03/16 09:31 Dose: 150 mg Docusate Sodium (Colace Liquid -) 100 mg PO TID [facility] Last Admin: 09/03/16 09:29 Dose: 100 mg Duloxetine HCl (Cymbalta -) 60 mg PO DAILY [facility] Last Admin: 09/03/16 09:32 Dose: 60 mg Epoetin Keith (Procrit -) 10,000 unit IVPUSH MoWeFr@10 [facility] Last Admin: 09/01/16 12:32 Dose: 10,000 unit Heparin Sodium (Porcine) (Heparin -) 1,000 unit IVPUSH PRN PRN PRN Reason: Heparin Last Admin: 09/02/16 10:06 Dose: 1,000 unit Heparin Sodium (Porcine) (Heparin -) 5,000 unit IVPUSH PRN PRN PRN Reason: Heparin Heparin Sodium (Porcine) 25, (000 unit/ Sodium Chloride) 500 mls @ 20 mls/hr IV TITR [facility]; 1,000 UNIT/HR PRN Reason: Protocol Last Admin: 09/02/16 15:40 Dose: 18 mls/hr Ertapenem 1 gm/ Sodium (Chloride) 50 mls @ 100 mls/hr IVPB DAILY [facility] PRN Reason: Protocol Last Admin: 09/03/16 09:48 Dose: 100 mls/hr Pantoprazole Sodium (Protonix 40mg Ivpb (Pre-Docked)) 100 mls @ 200 mls/hr IVPB DAILY [facility] Last Admin: 09/03/16 09:30 Dose: 200 mls/hr Propofol (Diprivan -) 100 mls @ 2.696 mls/hr IVPB TITR [facility]; 5 MCG/KG/MIN PRN Reason: Protocol Last Admin: 09/03/16 09:33 Dose: 5.391 mls/hr Phenylephrine HCl 20,000 mcg/ (Sodium Chloride) 250 mls @ 75 mls/hr IVPB ASDIR [facility]; 100 MCG/MIN PRN Reason: Protocol Last Admin: 09/02/16 20:00 Dose: 75 mls/hr Insulin Aspart (Novolog Vial Sliding Scale -) 1 vial SQ ACHS [facility] PRN Reason: Protocol Last Admin: 09/03/16 09:29 Dose: 3 units Methylprednisolone Sodium Succinate (Solu-Medrol -) 40 mg IVPB BID [facility] Last Admin: 09/03/16 09:31 Dose: 40 mg Metoprolol Tartrate (Lopressor -) 25 mg PO BID [facility] Last Admin: 09/03/16 09:32 Dose: 25 mg Nystatin (Nystop Powder -) 1 applic TP DAILY [facility] Last Admin: 09/03/16 09:31 Dose: 1 applic Polyethylene Glycol (Miralax (For Daily Use) -) 17 gm PO DAILY [facility] Last Admin: 09/03/16 09:32 Dose: 17 gm Sodium Chloride ([place] Nasal [place] -) 2 spray NS Q12H PRN PRN Reason: NASAL CONGESTION Tamsulosin HCl (Flomax -) 0.4 mg PO DAILY@0830 [facility] Last Admin: 09/03/16 09:30 Dose: 0.4 mg - Objective Vital Signs: Vital Signs Temperature 98 F 09/03/16 09:00 Pulse Rate 64 09/03/16 09:00 Respiratory Rate 18 09/03/16 10:02 Blood Pressure 120/60 09/03/16 09:00 O2 Sat by Pulse Oximetry (%) 98 09/03/16 09:00 Eyes: Yes: WNL, Conjunctiva Clear, EOM Intact HENT: Yes: WNL, Atraumatic, Normocephalic Neck: Yes: WNL, Supple, Trachea Midline Cardiovascular: Yes: WNL, Regular Rate and Rhythm Respiratory: Yes: Diminished, Intubated, Mechanically Ventilated Gastrointestinal: Yes: WNL, Normal Bowel Sounds Genitourinary: Yes: WNL Musculoskeletal: Yes: WNL Extremities: Yes: WNL Edema: No Integumentary: Yes: WNL Neurological: Yes: WNL, Alert, Oriented ...Motor Strength: WNL Psychiatric: Yes: WNL Labs: CBC, BMP 09/03/16 05:45 09/03/16 05:45 INR, PTT INR 1.22 (0.82-1.09) H 08/27/16 06:00 Assessment/Plan IMP: Acute on chronic exacerbation COPD, Right lower lobe PNA, probable left sided mucous plug and acute on chronic hypoxemic and hypercarbic respiratory failure Acute on chronic renal failure, suspected ATN from periods of relative hypotension Anemia CAD s/p PCI History of DVT REC: 1. PNA, probable mucous plug left lung, acute on chronic hypercarbic and hypoxemic respiratory failure: -superimposed on chronic COPD, chronic diastolic CHF -re-intubated -Abx as per ID, possible new aspiration event - s/p b/l pigtail catheters 2. ARF: -As per renal -Avoid nephrotoxins (no PIPER/ARB) -Avoid hypotension, hold parameters placed on amlodipine 3. Anemia: -guaiac + -Follow H/H -For now bridging w/ heparin gtts 4. CAD s/p PCI: -ASA on hold due to anemia and guaiac + stool -Resume when feasible post procedure. cc time 35 min
--- NOTE | 2016-09-03 11:41 | PN ---
Progress Note, Physician History of Present Illness: continues to be intubated no other events in room - Current Medication List Current Medications: Active Medications Acetylcysteine (Mucomyst 20 Oral / Inh Use Only*) 600 mg NEB QIDR [facility] Last Admin: 09/03/16 11:32 Dose: 600 mg Albuterol Sulfate (Ventolin 0.083% Nebulizer Soln -) 1 amp NEB QIDR [facility] Last Admin: 09/03/16 11:32 Dose: 1 amp Atorvastatin Calcium (Lipitor -) 20 mg PO HS [facility] Last Admin: 09/02/16 22:38 Dose: 20 mg Bupropion HCl (Wellbutrin Xl -) 150 mg PO DAILY [facility] Last Admin: 09/03/16 09:31 Dose: 150 mg Docusate Sodium (Colace Liquid -) 100 mg PO TID [facility] Last Admin: 09/03/16 09:29 Dose: 100 mg Duloxetine HCl (Cymbalta -) 60 mg PO DAILY [facility] Last Admin: 09/03/16 09:32 Dose: 60 mg Epoetin Keith (Procrit -) 10,000 unit IVPUSH MoWeFr@10 [facility] Last Admin: 09/01/16 12:32 Dose: 10,000 unit Heparin Sodium (Porcine) (Heparin -) 1,000 unit IVPUSH PRN PRN PRN Reason: Heparin Last Admin: 09/02/16 10:06 Dose: 1,000 unit Heparin Sodium (Porcine) (Heparin -) 5,000 unit IVPUSH PRN PRN PRN Reason: Heparin Heparin Sodium (Porcine) 25, (000 unit/ Sodium Chloride) 500 mls @ 20 mls/hr IV TITR [facility]; 1,000 UNIT/HR PRN Reason: Protocol Last Admin: 09/02/16 15:40 Dose: 18 mls/hr Ertapenem 1 gm/ Sodium (Chloride) 50 mls @ 100 mls/hr IVPB DAILY [facility] PRN Reason: Protocol Last Admin: 09/03/16 09:48 Dose: 100 mls/hr Pantoprazole Sodium (Protonix 40mg Ivpb (Pre-Docked)) 100 mls @ 200 mls/hr IVPB DAILY [facility] Last Admin: 09/03/16 09:30 Dose: 200 mls/hr Propofol (Diprivan -) 100 mls @ 2.696 mls/hr IVPB TITR [facility]; 5 MCG/KG/MIN PRN Reason: Protocol Last Admin: 09/03/16 09:33 Dose: 5.391 mls/hr Phenylephrine HCl 20,000 mcg/ (Sodium Chloride) 250 mls @ 75 mls/hr IVPB ASDIR [facility]; 100 MCG/MIN PRN Reason: Protocol Last Admin: 09/02/16 20:00 Dose: 75 mls/hr Insulin Aspart (Novolog Vial Sliding Scale -) 1 vial SQ ACHS [facility] PRN Reason: Protocol Last Admin: 09/03/16 09:29 Dose: 3 units Methylprednisolone Sodium Succinate (Solu-Medrol -) 40 mg IVPB BID [facility] Last Admin: 09/03/16 09:31 Dose: 40 mg Metoprolol Tartrate (Lopressor -) 25 mg PO BID [facility] Last Admin: 09/03/16 09:32 Dose: 25 mg Nystatin (Nystop Powder -) 1 applic TP DAILY [facility] Last Admin: 09/03/16 09:31 Dose: 1 applic Polyethylene Glycol (Miralax (For Daily Use) -) 17 gm PO DAILY [facility] Last Admin: 09/03/16 09:32 Dose: 17 gm Sodium Chloride ([place] Nasal [place] -) 2 spray NS Q12H PRN PRN Reason: NASAL CONGESTION Tamsulosin HCl (Flomax -) 0.4 mg PO DAILY@0830 [facility] Last Admin: 09/03/16 09:30 Dose: 0.4 mg - Objective Vital Signs: Vital Signs Temperature 98 F 09/03/16 10:00 Pulse Rate 62 09/03/16 11:00 Respiratory Rate 18 09/03/16 11:00 Blood Pressure 86/60 09/03/16 11:00 O2 Sat by Pulse Oximetry (%) 98 09/03/16 09:00 Constitutional: Yes: Other Cardiovascular: Yes: Regular Rate and Rhythm Respiratory: Yes: Intubated, Mechanically Ventilated Gastrointestinal: Yes: Normal Bowel Sounds, Soft Musculoskeletal: Yes: Other Extremities: Yes: Other Edema: LUE: 1+, RUE: 1+, LLE: 1+, RLE: 1+ Neurological: Yes: Other Psychiatric: Yes: Other Labs: CBC, BMP 09/03/16 05:45 09/03/16 05:45 INR, PTT INR 1.22 (0.82-1.09) H 08/27/16 06:00 Assessment/Plan - Problems (1) Acute and chronic respiratory failure with hypoxia Code(s): J96.21 - ACUTE AND CHRONIC RESPIRATORY FAILURE WITH HYPOXIA (2) Pneumonia Code(s): J18.9 - PNEUMONIA, UNSPECIFIED ORGANISM Qualifiers: Pneumonia type: due to unspecified organism Laterality: left Lung location: lower lobe of lung Qualified Code(s): J18.1 - Lobar pneumonia, unspecified organism (3) Pleural effusion Code(s): J90 - PLEURAL EFFUSION, NOT ELSEWHERE CLASSIFIED (4) Acute on chronic diastolic (congestive) heart failure Code(s): I50.33 - ACUTE ON CHRONIC DIASTOLIC (CONGESTIVE) HEART FAILURE (5) COPD (chronic obstructive pulmonary disease) Code(s): J44.9 - CHRONIC OBSTRUCTIVE PULMONARY DISEASE, UNSPECIFIED (6) Renal failure (ARF), acute on chronic Code(s): N17.9 - ACUTE KIDNEY FAILURE, UNSPECIFIED N18.9 - CHRONIC KIDNEY DISEASE, UNSPECIFIED (7) Diabetes Code(s): E11.9 - TYPE 2 DIABETES MELLITUS WITHOUT COMPLICATIONS Qualifiers: Diabetes mellitus type: type 2 Diabetes mellitus complication status: with kidney complications Diabetes mellitus complication detail: with chronic kidney disease (8) Atrial fibrillation Code(s): I48.91 - UNSPECIFIED ATRIAL FIBRILLATION 9 bilateral cellulitis of the legs plan continue current mgmt pig tail catheter in place continue to monitor drainage await for other cx report ct as per icu mgmt cc time 40 min
--- NOTE | 2016-09-03 12:41 | PN ---
Physical Exam: SUBJECTIVE: Patient seen and examined in ICU. present. OBJECTIVE: 24 hour events: return to sinus rhythm pressors off amiodarone drip finsihed; start PO Vital Signs Period Temp Pulse Resp BP Sys/[place] Pulse Ox Last 24 Hr 97.2 F-98 F 55-102 18-20 86-140/54-84 98-100 GENERAL/NEURO: Intubated, sedated; failed weaning trial LUNGS: Coarse breath sounds bilaterally HEART: Irregular, S1, S2 ABDOMEN: Soft, nontender, nondistended, normoactive bowel sounds, no guarding, no rebound EXTREMITIES: bilateral upper extremity edema Laboratory Results - last 24 hr 09/02/16 09/02/16 09/02/16 11:21 16:57 17:00 WBC RBC Hgb Hct MCV MCHC RDW Plt Count MPV PTT (Actin FS) 59.8 H D Puncture Site ABG pH ABG pCO2 at Pt Temp ABG pO2 at Pt Temp ABG HCO3 ABG O2 Sat (Measured) ABG O2 Content ABG Base Excess Issac Test O2 Delivery Device Oxygen Flow Rate Vent Mode Vent Rate Mechanical Rate PEEP Pressure Support Vent Sodium Potassium Chloride Carbon Dioxide Anion Gap BUN Creatinine Creat Clearance w eGFR POC Glucometer [phone] Random Glucose Calcium Phosphorus Magnesium Total Bilirubin AST ALT Alkaline Phosphatase Total Protein Albumin Blood Type Antibody Screen Crossmatch 09/02/16 09/03/16 09/03/16 23:19 05:45 05:45 WBC 15.1 H RBC 2.21 L Hgb 6.1 L* D Hct 19.5 L D MCV 88.4 MCHC 31.1 L RDW 16.7 H Plt Count 212 D MPV 7.8 PTT (Actin FS) 64.2 H Puncture Site ABG pH ABG pCO2 at Pt Temp ABG pO2 at Pt Temp ABG HCO3 ABG O2 Sat (Measured) ABG O2 Content ABG Base Excess Issac Test O2 Delivery Device Oxygen Flow Rate Vent Mode Vent Rate Mechanical Rate PEEP Pressure Support Vent Sodium Potassium Chloride Carbon Dioxide Anion Gap BUN Creatinine Creat Clearance w eGFR POC Glucometer 206.52432 Random Glucose Calcium Phosphorus Magnesium Total Bilirubin AST ALT Alkaline Phosphatase Total Protein Albumin Blood Type Antibody Screen Crossmatch 09/03/16 09/03/16 09/03/16 05:45 05:55 07:17 WBC RBC Hgb Hct MCV MCHC RDW Plt Count MPV PTT (Actin FS) Puncture Site ABG pH ABG pCO2 at Pt Temp ABG pO2 at Pt Temp ABG HCO3 ABG O2 Sat (Measured) ABG O2 Content ABG Base Excess Issac Test O2 Delivery Device Oxygen Flow Rate Vent Mode Vent Rate Mechanical Rate PEEP Pressure Support Vent Sodium 139 Potassium 4.5 Chloride 98 Carbon Dioxide 31 Anion Gap 10 BUN 90 H Creatinine 3.1 H Creat Clearance w eGFR 19.85 POC Glucometer [phone] Random Glucose 151 H D Calcium 7.2 L Phosphorus 5.4 H D Magnesium 2.6 H Total Bilirubin 0.4 AST 16 ALT 6 L Alkaline Phosphatase 69 Total Protein 3.9 L Albumin 1.5 L Blood Type A POSITIVE Antibody Screen Negative Crossmatch See Detail 09/03/16 07:40 WBC RBC Hgb Hct MCV MCHC RDW Plt Count MPV PTT (Actin FS) Puncture Site Right radial ABG pH 7.34 L ABG pCO2 at Pt Temp 52.0 H ABG pO2 at Pt Temp 147.0 H D ABG HCO3 27.6 H ABG O2 Sat (Measured) 100.0 H* ABG O2 Content 9.6 L* ABG Base Excess 2.2 H Issac Test Positive O2 Delivery Device Mec.vent Oxygen Flow Rate 80% Vent Mode A/c Vent Rate 18 Mechanical Rate Esprit PEEP 10.0 Pressure Support Vent 450 Sodium Potassium Chloride Carbon Dioxide Anion Gap BUN Creatinine Creat Clearance w eGFR POC Glucometer Random Glucose Calcium Phosphorus Magnesium Total Bilirubin AST ALT Alkaline Phosphatase Total Protein Albumin Blood Type Antibody Screen Crossmatch Active Medications Generic Name Dose Route Start Last Admin Trade Name Freq PRN Reason Stop Dose Admin Acetylcysteine 600 mg 08/28/16 18:00 09/03/16 11:32 Mucomyst 20 Oral / Inh Use Only* NEB 600 mg QIDR LESLEE Administration Albuterol Sulfate 1 amp 08/28/16 18:00 09/03/16 11:32 Ventolin 0.083% Nebulizer Soln - NEB 1 amp QIDR LESLEE Administration Atorvastatin Calcium 20 mg 08/28/16 22:00 09/02/16 22:38 Lipitor - PO 20 mg HS LESLEE Administration Bupropion HCl 150 mg 08/29/16 10:00 09/03/16 09:31 Wellbutrin Xl - PO 150 mg DAILY LESLEE Administration Docusate Sodium 100 mg 09/03/16 06:00 09/03/16 09:29 Colace Liquid - PO 100 mg TID LESLEE Administration Duloxetine HCl 60 mg 08/29/16 10:00 09/03/16 09:32 Cymbalta - PO 60 mg DAILY LESLEE Administration Epoetin Keith 10,000 unit 08/30/16 10:00 09/01/16 12:32 Procrit - IVPUSH 10,000 unit MoWeFr@10 LESLEE Administration Heparin Sodium (Porcine) 1,000 unit 08/28/16 14:22 09/02/16 10:06 Heparin - IVPUSH 1,000 unit PRN PRN Administration Heparin Heparin Sodium (Porcine) 5,000 unit 08/28/16 14:22 Heparin - IVPUSH PRN PRN Heparin Heparin Sodium (Porcine) 25, 500 mls @ 20 mls/hr 08/28/16 14:22 09/02/16 15:40 000 unit/ Sodium Chloride IV 18 mls/hr TITR LESLEE Administration Protocol 1,000 UNIT/HR Ertapenem 1 gm/ Sodium 50 mls @ 100 mls/hr 08/30/16 10:00 09/03/16 09:48 Chloride IVPB 100 mls/hr DAILY LESLEE Administration Protocol Pantoprazole Sodium 100 mls @ 200 mls/hr 08/31/16 12:00 09/03/16 09:30 Protonix 40mg Ivpb (Pre-Docked) IVPB 200 mls/hr DAILY LESLEE Administration Propofol 100 mls @ 2.696 mls/hr 09/01/16 09:45 09/03/16 09:33 Diprivan - IVPB 5.391 mls/hr TITR LESLEE Administration Protocol 5 MCG/KG/MIN Phenylephrine HCl 20,000 mcg/ 250 mls @ 75 mls/hr 09/02/16 15:15 09/02/16 20:00 Sodium Chloride IVPB 75 mls/hr ASDIR LESLEE Administration Protocol 100 MCG/MIN Insulin Aspart 1 vial 08/28/16 16:30 09/03/16 09:29 Novolog Vial Sliding Scale - SQ 3 units ACHS LESLEE Administration Protocol Methylprednisolone Sodium Succinate 40 mg 09/01/16 22:00 09/03/16 09:31 Solu-Medrol - IVPB 40 mg BID LESLEE Administration Metoprolol Tartrate 25 mg 08/28/16 22:00 09/03/16 09:32 Lopressor - PO 25 mg BID LESLEE Administration Nystatin 1 applic 08/29/16 10:00 09/03/16 09:31 Nystop Powder - TP 1 applic DAILY LESLEE Administration Polyethylene Glycol 17 gm 08/29/16 10:00 09/03/16 09:32 Miralax (For Daily Use) - PO 17 gm DAILY LESLEE Administration Sodium Chloride 2 spray 08/28/16 14:22 [place] Nasal [place] - NS Q12H PRN NASAL CONGESTION Tamsulosin HCl 0.4 mg 08/29/16 08:30 09/03/16 09:30 Flomax - PO 0.4 mg DAILY@0830 LESLEE Administration ASSESSMENT/PLAN 75 year-old male with a significant PMH of HTN, HLD, CAD s/p stents x 2 (2014), diastolic heart failure, afib, COPD, recurrent episodes of respiratory failure requiring intubation, h/o GI bleed, h/o DVT and PE, CKD previously requiring HD , urinary retention with chronic lilly. Acute on chronic hypoxic and hypercapnic respiratory failure --intubated 09/02 Acute blood loss anemia --Hgb drop 6.1 --transfuse 2U PRBC --repeat cbc pending --previously seen and evaluated by Dr. Fry who thinks active bleeding component; he presented patient with risks/benefits of EGD/colon; patient declined these interventions --protonix PO BID Cardiogenic shock secondary to paroxysmal atrial fibrillation with RVR, improved --return to sinus rhythm with good rate control --BP stabilized, now off pressors --amiodarone drip finished; start PO tomorrow --stop heparin drip, no anticoagulation due to bleeding Asthma/COPD --IV steroids --duonebs, mucomyst Acute on chronic diastolic heart failure --Echo: LV function normal, EF 57%; RV function normal; trace MR, trace TR --bilateral pleural effusions s/p bilateral pigtails both to gravity --continue to hold diuretics Acute on chronic renal failure --Cr 3.1 trending down --UOP falling off, ~40cc/hr over past 24 hours HCAP --09/03 CXR: perihilar infiltrative changes --afebrile; persistent leukocytosis --continue Ertapenem Hyperlipidemia --continue Lipitor CAD s/p stents --continue ASA, Lipitor h/o DVT and PE --hold all a/c due to bleeding Hypernatremia, resolved F/E/N Fluids: hold IV fluids Electrolytes: replete as indicated Nutrition: tube feeds started DVT prophylaxis: SCDs Dispo: continues to require ICU level care. Had a 30 minute conversation with . Patient remains full code. She will think about trach and PEG. She would like patient to go to a local SNF rather than [facility] in [place]. Visit type - Emergency Visit Emergency Visit: Yes ED Registration Date: 08/23/16 Care time: The patient presented to the Emergency Department on the above date and was hospitalized for further evaluation of their emergent condition. - New Patient This patient is new to me today: No - Critical Care Critical Care patient: Yes Total Critical Care Time (in minutes): 45 Critical Care Statement: The care of this patient involved high complexity decision making to prevent further life threatening deterioration of the patient 's condition and/or to evalute & treat vital organ system(s) failure or risk of failure.
[2016-09-03 13:10] LABS: COMMENT-- SEE FILE COPY
[2016-09-03] MEDS: HEPARIN - 25,000 UNIT in SODIUM CHLORIDE 495 ML IV SCH (17:38)
[2016-09-03] MEDS: PHENYLEPHRINE HCL 20,000 MCG in SODIUM CHLORIDE 248 ML IVPB SCH (17:39)
[2016-09-03 20:21] LABS: BASOPHIL 0.1 % (0-2.0); MCH 27.2 pg (25.7-33.7); MCHC 31.9 g/dl (32.0-35.9); MEAN CELL VOLUME 85.4 fl (80-96); MEAN PLT VOLUME 7.7 fl (7.5-11.1); NEUTROPHILS 95.4 % (42.8-82.8); PLATELET COUNT 173 K/MM3 (134-434); RDW 17.7 % (11.9-15.9); WHITE BLOOD COUNT 12.3 K/mm3 (4.0-10.0)
[2016-09-03] MEDS: ATORVASTATIN CA 20 MG TABLET (FP) PO SCH (22:55)
[2016-09-04] MEDS: DOCUSATE NA 100 MG/10 ML UNIT-DOSE CUPS PO SCH ×3 (06:19→21:50)
[2016-09-04] MEDS: INSULIN SLIDING SCALE (NOVOLOG) 1 VIAL SQ SCH ×4 (06:20→22:44)
[2016-09-04 06:21] LABS: MCH 27.7 pg (25.7-33.7); MCHC 32.8 g/dl (32.0-35.9); MEAN CELL VOLUME 84.5 fl (80-96); MEAN PLT VOLUME 7.7 fl (7.5-11.1); NEUTROPHILS 96.1 % (42.8-82.8); PLATELET COUNT 183 K/MM3 (134-434); RDW 17.8 % (11.9-15.9); WHITE BLOOD COUNT 11.7 K/mm3 (4.0-10.0)
[2016-09-04] MEDS: ALBUTEROL SO4 0.083% IH SOL 2.5 MG/3 ML VIAL.NEB. NEB SCH ×3 (06:35→18:09)
[2016-09-04] MEDS: ACETYLCYSTEINE 20% 200MG/ML 4 ML VIAL *FOR ORAL / INH USE ONLY NEB SCH ×3 (06:35→18:09)
[2016-09-04 06:46] LABS: ALBUMIN 1.5 g/dl (3.4-5.0); ANION GAP 11 (8-16); CALCIUM 7.5 mg/dL (8.5-10.1); CO2 29 mmol/L (21-32); GLUCOSE,RANDOM 144 mg/dL (74-106); MAGNESIUM 2.8 mg/dL (1.8-2.4)
[2016-09-04 06:51] LABS: ALK PHOS 75 U/L (45-117); BILIRUBIN,TOTAL 0.6 mg/dL (0.2-1.0); CREATININE 2.5 mg/dL (0.7-1.3); PHOSPHOROUS 6.5 mg/dL (2.5-4.9); SGOT/AST 13 U/L (15-37); SGPT/ALT < 6 U/L (12-78); TOT PROT 4.3 g/dl (6.4-8.2)
[2016-09-04 07:48] LABS: ARTERIAL BLD GAS O2 SATURATION 99.1 % (90-98.9); ARTERIAL BLOOD GAS BASE EXCESS 0.1 meq/l (-2-2); ARTERIAL BLOOD GAS HCO3 26.1 meq/L (22-26)
[2016-09-04 08:20] LABS: ALLENS TEST POSITIVE; ART PUNCT SITE RIGHT RADIAL; LPM/O2% 60; MECH. VENT. Y; PT. ON O2? YES; TYPE OF O2 VENT; VENT RATE 18; VT/PRESS 450
[2016-09-04 08:21] LABS: ARTERIAL BLOOD GAS pH 7.33 (7.35-7.45)
[2016-09-04] MEDS: TAMSULOSIN HCL 0.4 MG CAP.ER.24H (FP) PO SCH (08:49)
--- NOTE | 2016-09-04 09:13 | PN ---
Progress Note, Physician - Current Medication List Current Medications: Active Medications Acetylcysteine (Mucomyst 20 Oral / Inh Use Only*) 600 mg NEB QIDR [facility] Last Admin: 09/04/16 06:35 Dose: 600 mg Albuterol Sulfate (Ventolin 0.083% Nebulizer Soln -) 1 amp NEB QIDR LESLEE Last Admin: 09/04/16 06:35 Dose: 1 amp Amiodarone HCl (Cordarone -) 200 mg PO DAILY LESLEE Atorvastatin Calcium (Lipitor -) 20 mg PO HS [facility] Last Admin: 09/03/16 22:55 Dose: 20 mg Bupropion HCl (Wellbutrin Xl -) 150 mg PO DAILY [facility] Last Admin: 09/03/16 09:31 Dose: 150 mg Docusate Sodium (Colace Liquid -) 100 mg PO TID [facility] Last Admin: 09/04/16 06:19 Dose: 100 mg Duloxetine HCl (Cymbalta -) 60 mg PO DAILY [facility] Last Admin: 09/03/16 09:32 Dose: 60 mg Epoetin Keith (Procrit -) 10,000 unit IVPUSH MoWeFr@10 [facility] Last Admin: 09/01/16 12:32 Dose: 10,000 unit Heparin Sodium (Porcine) (Heparin -) 1,000 unit IVPUSH PRN PRN PRN Reason: Heparin Last Admin: 09/02/16 10:06 Dose: 1,000 unit Heparin Sodium (Porcine) (Heparin -) 5,000 unit IVPUSH PRN PRN PRN Reason: Heparin Ertapenem 1 gm/ Sodium (Chloride) 50 mls @ 100 mls/hr IVPB DAILY LESLEE PRN Reason: Protocol Last Admin: 09/03/16 09:48 Dose: 100 mls/hr Pantoprazole Sodium (Protonix 40mg Ivpb (Pre-Docked)) 100 mls @ 200 mls/hr IVPB DAILY [facility] Last Admin: 09/03/16 09:30 Dose: 200 mls/hr Propofol (Diprivan -) 100 mls @ 2.696 mls/hr IVPB TITR LESLEE; 5 MCG/KG/MIN PRN Reason: Protocol Last Admin: 09/03/16 09:33 Dose: 5.391 mls/hr Phenylephrine HCl 20,000 mcg/ (Sodium Chloride) 250 mls @ 75 mls/hr IVPB ASDIR LESLEE; 100 MCG/MIN PRN Reason: Protocol Last Admin: 09/03/16 17:39 Dose: Not Given Insulin Aspart (Novolog Vial Sliding Scale -) 1 vial SQ ACHS [facility] PRN Reason: Protocol Last Admin: 09/04/16 06:20 Dose: 3 units Methylprednisolone Sodium Succinate (Solu-Medrol -) 40 mg IVPB BID [facility] Last Admin: 09/03/16 22:55 Dose: 40 mg Metoprolol Tartrate (Lopressor -) 25 mg PO BID [facility] Last Admin: 09/03/16 22:55 Dose: 25 mg Nystatin (Nystop Powder -) 1 applic TP DAILY [facility] Last Admin: 09/03/16 09:31 Dose: 1 applic Polyethylene Glycol (Miralax (For Daily Use) -) 17 gm PO DAILY [facility] Last Admin: 09/03/16 09:32 Dose: 17 gm Sodium Chloride ([place] Nasal [place] -) 2 spray NS Q12H PRN PRN Reason: NASAL CONGESTION Tamsulosin HCl (Flomax -) 0.4 mg PO DAILY@0830 [facility] Last Admin: 09/04/16 08:49 Dose: 0.4 mg - Objective Vital Signs: Vital Signs Temperature 97.1 F L 09/04/16 06:00 Pulse Rate 63 09/04/16 06:00 Respiratory Rate 18 09/04/16 06:03 Blood Pressure 113/54 09/04/16 06:00 O2 Sat by Pulse Oximetry (%) 100 09/03/16 22:00 Eyes: Yes: WNL, Conjunctiva Clear, EOM Intact HENT: Yes: WNL, Atraumatic, Normocephalic Neck: Yes: WNL, Supple, Trachea Midline Cardiovascular: Yes: WNL, Regular Rate and Rhythm Respiratory: Yes: Intubated, Mechanically Ventilated Gastrointestinal: Yes: WNL, Normal Bowel Sounds Genitourinary: Yes: WNL Musculoskeletal: Yes: WNL Extremities: Yes: WNL Edema: No Integumentary: Yes: WNL Neurological: Yes: WNL, Alert, Oriented ...Motor Strength: WNL Psychiatric: Yes: WNL Labs: CBC, BMP 09/04/16 05:55 09/04/16 05:55 INR, PTT INR 1.22 (0.82-1.09) H 08/27/16 06:00 Assessment/Plan IMP: Acute on chronic exacerbation COPD, Right lower lobe PNA, probable left sided mucous plug and acute on chronic hypoxemic and hypercarbic respiratory failure Acute on chronic renal failure, suspected ATN from periods of relative hypotension Anemia CAD s/p PCI History of DVT REC: 1. PNA, probable mucous plug left lung, acute on chronic hypercarbic and hypoxemic respiratory failure: -superimposed on chronic COPD, chronic diastolic CHF -re-intubated -Abx as per ID, possible new aspiration event - s/p b/l pigtail catheters 2. ARF: -As per renal -Avoid nephrotoxins (no PIPER/ARB) -Avoid hypotension, hold parameters placed on amlodipine 3. Anemia: -guaiac + -Follow H/H -For now bridging w/ heparin gtts 4. CAD s/p PCI: -ASA on hold due to anemia and guaiac + stool -Resume when feasible post procedure. cc time 35 min
[2016-09-04] MEDS: METOPROLOL TARTRATE 25 MG TABLET (FP) PO SCH ×2 (09:23→21:42)
[2016-09-04] MEDS: NYSTATIN POWDER 100,000 UNITS/GM - 15 GM TOPICAL POWDER TP SCH (09:23)
[2016-09-04] MEDS: DULoxetine HCL 30 MG CAPSULE.DR (FP) PO SCH (09:26)
[2016-09-04] MEDS: PANTOPRAZOLE SODIUM 100 ML IVPB SCH (09:27)
[2016-09-04] MEDS: ERTAPENEM SODIUM 1 GM in SODIUM CHLORIDE 50 ML IVPB SCH (09:27)
[2016-09-04] MEDS: methylPREDNISolone NA SUCC 40 MG/1 ML VIAL IVPB SCH ×2 (09:27→21:44)
--- NOTE | 2016-09-04 10:28 | EKG ---
Test Reason : Blood Pressure : / mmHG Vent. Rate : 125 BPM Atrial Rate : 153 BPM P-R Int : 000 ms QRS Dur : 148 ms QT Int : 330 ms P-R-T Axes : 000 065 -09 degrees QTc Int : 476 ms ATRIAL FIBRILLATION WITH RAPID VENTRICULAR RESPONSE RIGHT BUNDLE BRANCH BLOCK ABNORMAL ECG WHEN COMPARED WITH ECG OF 23-AUG-2016 18:30, ATRIAL FIBRILLATION HAS REPLACED SINUS RHYTHM Confirmed by RADHA ALLEN, ANALY ([id number]) on 09/04/2016 10:28:38 AM Referred By: Confirmed By:ANALY GARCIA MD
--- NOTE | 2016-09-04 11:22 | PN ---
Progress Note (short form) - Note Progress Note: Patient seen and examined in the ICU. Remains intubated and sedated. AC Mode of vent 60% FiO2. Off pressors. HR better controlled CXR: ETT in place / overall improved Intake & Output 09/01/16 09/02/16 09/03/16 09/04/16 23:59 23:59 23:59 23:59 Intake Total 2248 2338.3 4282.0 759.8 Output Total 1000 1000 1100 1040 Balance 1248 1338.3 3182.0 -280.2 Weight 198 lb 1.6 oz 199 lb 206 lb 211 lb 8 oz Last Vital Signs Temp Pulse Resp BP Pulse Ox 97.1 F L 67 18 112/63 100 09/04/16 10:00 09/04/16 10:00 09/04/16 10:00 09/04/16 10:00 09/03/16 22:00 Active Medications Acetylcysteine (Mucomyst 20 Oral / Inh Use Only*) 600 mg NEB QIDR [facility] Last Admin: 09/04/16 06:35 Dose: 600 mg Albuterol Sulfate (Ventolin 0.083% Nebulizer Soln -) 1 amp NEB QIDR [facility] Last Admin: 09/04/16 06:35 Dose: 1 amp Amiodarone HCl (Cordarone -) 200 mg PO DAILY [facility] Atorvastatin Calcium (Lipitor -) 20 mg PO HS [facility] Last Admin: 09/03/16 22:55 Dose: 20 mg Bupropion HCl (Wellbutrin Xl -) 150 mg PO DAILY [facility] Last Admin: 09/03/16 09:31 Dose: 150 mg Docusate Sodium (Colace Liquid -) 100 mg PO TID [facility] Last Admin: 09/04/16 06:19 Dose: 100 mg Duloxetine HCl (Cymbalta -) 60 mg PO DAILY [facility] Last Admin: 09/04/16 09:26 Dose: 60 mg Epoetin Keith (Procrit -) 10,000 unit IVPUSH MoWeFr@10 [facility] Last Admin: 09/01/16 12:32 Dose: 10,000 unit Heparin Sodium (Porcine) (Heparin -) 1,000 unit IVPUSH PRN PRN PRN Reason: Heparin Last Admin: 09/02/16 10:06 Dose: 1,000 unit Heparin Sodium (Porcine) (Heparin -) 5,000 unit IVPUSH PRN PRN PRN Reason: Heparin Ertapenem 1 gm/ Sodium (Chloride) 50 mls @ 100 mls/hr IVPB DAILY LESLEE PRN Reason: Protocol Last Admin: 09/04/16 09:27 Dose: 100 mls/hr Pantoprazole Sodium (Protonix 40mg Ivpb (Pre-Docked)) 100 mls @ 200 mls/hr IVPB DAILY [facility] Last Admin: 09/04/16 09:27 Dose: 200 mls/hr Propofol (Diprivan -) 100 mls @ 2.696 mls/hr IVPB TITR LESLEE; 5 MCG/KG/MIN PRN Reason: Protocol Last Admin: 09/03/16 09:33 Dose: 5.391 mls/hr Phenylephrine HCl 20,000 mcg/ (Sodium Chloride) 250 mls @ 75 mls/hr IVPB ASDIR LESLEE; 100 MCG/MIN PRN Reason: Protocol Last Admin: 09/03/16 17:39 Dose: Not Given Insulin Aspart (Novolog Vial Sliding Scale -) 1 vial SQ ACHS [facility] PRN Reason: Protocol Last Admin: 09/04/16 06:20 Dose: 3 units Methylprednisolone Sodium Succinate (Solu-Medrol -) 40 mg IVPB BID [facility] Last Admin: 09/04/16 09:27 Dose: 40 mg Metoprolol Tartrate (Lopressor -) 25 mg PO BID [facility] Last Admin: 09/04/16 09:23 Dose: 25 mg Nystatin (Nystop Powder -) 1 applic TP DAILY [facility] Last Admin: 09/04/16 09:23 Dose: 1 applic Polyethylene Glycol (Miralax (For Daily Use) -) 17 gm PO DAILY [facility] Last Admin: 09/03/16 09:32 Dose: 17 gm Sodium Chloride ([place] Nasal [place] -) 2 spray NS Q12H PRN PRN Reason: NASAL CONGESTION Tamsulosin HCl (Flomax -) 0.4 mg PO DAILY@0830 [facility] Last Admin: 09/04/16 08:49 Dose: 0.4 mg GENERAL: Intubated and sedated HEENT: (-) icterus, dry membranes LUNGS: Scattered bilateral ronchi & bibasilar crackles noted. No wheezes. HEART: S1 and S2, (+) ESM ABDOMEN: Soft, obese, NT, ND, no guarding, no rebound, no masses. No hepatomegaly or splenomegaly. EXTREMITIES: 2+ pulses, (+) Edema NEUROLOGICAL: Sedated SKIN: Bilateral lower ext with skin discoloration with dark yellow patches and venous stasis. No signs of fluid overload. Laboratory Results - last 24 hr 08/26/16 09/03/16 09/03/16 08:10 07:17 13:24 WBC RBC Hgb Hct MCV MCHC RDW Plt Count MPV Neutrophils % Lymphocytes % Monocytes % Eosinophils % Basophils % Haptoglobin Y Puncture Site ABG pH ABG pCO2 at Pt Temp ABG pO2 at Pt Temp ABG HCO3 ABG O2 Sat (Measured) ABG O2 Content ABG Base Excess Issac Test O2 Delivery Device Oxygen Flow Rate Vent Mode Vent Rate Mechanical Rate PEEP Pressure Support Vent Sodium Potassium Chloride Carbon Dioxide Anion Gap BUN Creatinine Creat Clearance w eGFR Glucose Y POC Glucometer 180.78918 Random Glucose Calcium Phosphorus Magnesium Total Bilirubin Y GGT Y AST Y ALT Y Alkaline Phosphatase Liver Fibrosis Score No Result Required. Liver Fibrosis Stage No Result Required. Total Protein Albumin [id number] No Result Required. Triglycerides Y Cholesterol Y Apolipoprotein A-1 Y Patient Height (cm) Y Patient Weight (kg) Y CSF IgG Interpretation Y Blood Type A POSITIVE Antibody Screen Negative Crossmatch See Detail 09/03/16 09/03/16 09/03/16 17:36 19:30 23:03 WBC 12.3 H RBC 2.95 L D Hgb 8.0 L D Hct 25.2 L D MCV 85.4 MCHC 31.9 L RDW 17.7 H Plt Count 173 MPV 7.7 Neutrophils % 95.4 H Lymphocytes % 1.5 L D Monocytes % 3.0 L Eosinophils % 0.0 D Basophils % 0.1 Haptoglobin Puncture Site ABG pH ABG pCO2 at Pt Temp ABG pO2 at Pt Temp ABG HCO3 ABG O2 Sat (Measured) ABG O2 Content ABG Base Excess Issac Test O2 Delivery Device Oxygen Flow Rate Vent Mode Vent Rate Mechanical Rate PEEP Pressure Support Vent Sodium Potassium Chloride Carbon Dioxide Anion Gap BUN Creatinine Creat Clearance w eGFR Glucose POC Glucometer 191.54431 151.85929 Random Glucose Calcium Phosphorus Magnesium Total Bilirubin GGT AST ALT Alkaline Phosphatase Liver Fibrosis Score Liver Fibrosis Stage Total Protein Albumin [id number] Triglycerides Cholesterol Apolipoprotein A-1 Patient Height (cm) Patient Weight (kg) CSF IgG Interpretation Blood Type Antibody Screen Crossmatch 09/04/16 09/04/16 09/04/16 05:55 05:55 06:01 WBC 11.7 H RBC 2.97 L Hgb 8.2 L Hct 25.1 L MCV 84.5 MCHC 32.8 RDW 17.8 H Plt Count 183 MPV 7.7 Neutrophils % 96.1 H Lymphocytes % 1.4 L Monocytes % 2.5 L Eosinophils % 0.0 Basophils % 0.0 Haptoglobin Puncture Site ABG pH ABG pCO2 at Pt Temp ABG pO2 at Pt Temp ABG HCO3 ABG O2 Sat (Measured) ABG O2 Content ABG Base Excess Issac Test O2 Delivery Device Oxygen Flow Rate Vent Mode Vent Rate Mechanical Rate PEEP Pressure Support Vent Sodium 138 Potassium 4.1 Chloride 98 Carbon Dioxide 29 Anion Gap 11 BUN 87 H Creatinine 2.5 H Creat Clearance w eGFR 25.44 Glucose POC Glucometer [phone] Random Glucose 144 H Calcium 7.5 L Phosphorus 6.5 H D Magnesium 2.8 H Total Bilirubin 0.6 D GGT AST 13 L ALT < 6 L Alkaline Phosphatase 75 Liver Fibrosis Score Liver Fibrosis Stage Total Protein 4.3 L Albumin 1.5 L [id number] Triglycerides Cholesterol Apolipoprotein A-1 Patient Height (cm) Patient Weight (kg) CSF IgG Interpretation Blood Type Antibody Screen Crossmatch 09/04/16 08:00 WBC RBC Hgb Hct MCV MCHC RDW Plt Count MPV Neutrophils % Lymphocytes % Monocytes % Eosinophils % Basophils % Haptoglobin Puncture Site Right radial ABG pH 7.33 L ABG pCO2 at Pt Temp 50.9 H ABG pO2 at Pt Temp 147.0 H ABG HCO3 26.1 H ABG O2 Sat (Measured) 99.1 H ABG O2 Content 17.6 ABG Base Excess 0.1 Issac Test Positive O2 Delivery Device Vent Oxygen Flow Rate 60 Vent Mode A/c Vent Rate 18 Mechanical Rate Y PEEP 10.0 Pressure Support Vent 450 Sodium Potassium Chloride Carbon Dioxide Anion Gap BUN Creatinine Creat Clearance w eGFR Glucose POC Glucometer Random Glucose Calcium Phosphorus Magnesium Total Bilirubin GGT AST ALT Alkaline Phosphatase Liver Fibrosis Score Liver Fibrosis Stage Total Protein Albumin [id number] Triglycerides Cholesterol Apolipoprotein A-1 Patient Height (cm) Patient Weight (kg) CSF IgG Interpretation Blood Type Antibody Screen Crossmatch ASSESSMENT/PLAN: Acute on chronic Respiratory Failure HTN HLD CAD S/P PCI Diastolic CHF AFIB COPD DVT / PE Normal transfusion thresholds BD TX Steroids ABX per ID Monitor CT output BD TX Normal transfusion thresholds Enteral feeds Glycemic control Should ideally be DNR/DNI Vent settings adjusted Dr Vasquez Critical care time spent in reviewing chart, evaluating patient and formulating plan 40 min
[2016-09-04] MEDS: PROPOFOL 100 ML IVPB SCH (13:06)
[2016-09-04] MEDS: EPOETIN ALFA 10,000 UNIT/1 ML VIAL IVPUSH SCH (13:07)
[2016-09-04] MEDS: AMIODARONE HCL 200 MG TABLET (FP) PO SCH (13:07)
[2016-09-04] MEDS: POLYETHYLENE GLYCOL 3350 119 GM BTL PO SCH (13:07)
--- NOTE | 2016-09-04 15:22 | PN ---
Physical Exam: SUBJECTIVE: Patient seen and examined at bedside in ICU. OBJECTIVE: Vital Signs Period Temp Pulse Resp BP Sys/[place] Pulse Ox Last 24 Hr 96.8 F-97.4 F 56-68 16-18 98-114/53-85 96-100 GENERAL/NEURO: Intubated, sedated. Agitated again today off sedation, did not tolerate weaning trial. LUNGS: Coarse breath sounds bilaterally HEART: Irregular, S1, S2 ABDOMEN: Soft, nontender, nondistended, normoactive bowel sounds, no guarding, no rebound EXTREMITIES: bilateral upper extremity edema Laboratory Results - last 24 hr 09/03/16 09/03/16 09/03/16 13:24 17:36 19:30 WBC 12.3 H RBC 2.95 L D Hgb 8.0 L D Hct 25.2 L D MCV 85.4 MCHC 31.9 L RDW 17.7 H Plt Count 173 MPV 7.7 Neutrophils % 95.4 H Lymphocytes % 1.5 L D Monocytes % 3.0 L Eosinophils % 0.0 D Basophils % 0.1 Puncture Site ABG pH ABG pCO2 at Pt Temp ABG pO2 at Pt Temp ABG HCO3 ABG O2 Sat (Measured) ABG O2 Content ABG Base Excess Issac Test O2 Delivery Device Oxygen Flow Rate Vent Mode Vent Rate Mechanical Rate PEEP Pressure Support Vent Sodium Potassium Chloride Carbon Dioxide Anion Gap BUN Creatinine Creat Clearance w eGFR POC Glucometer 180.58183 191.38274 Random Glucose Calcium Phosphorus Magnesium Total Bilirubin AST ALT Alkaline Phosphatase Total Protein Albumin 09/03/16 09/04/16 09/04/16 23:03 05:55 05:55 WBC 11.7 H RBC 2.97 L Hgb 8.2 L Hct 25.1 L MCV 84.5 MCHC 32.8 RDW 17.8 H Plt Count 183 MPV 7.7 Neutrophils % 96.1 H Lymphocytes % 1.4 L Monocytes % 2.5 L Eosinophils % 0.0 Basophils % 0.0 Puncture Site ABG pH ABG pCO2 at Pt Temp ABG pO2 at Pt Temp ABG HCO3 ABG O2 Sat (Measured) ABG O2 Content ABG Base Excess Issac Test O2 Delivery Device Oxygen Flow Rate Vent Mode Vent Rate Mechanical Rate PEEP Pressure Support Vent Sodium 138 Potassium 4.1 Chloride 98 Carbon Dioxide 29 Anion Gap 11 BUN 87 H Creatinine 2.5 H Creat Clearance w eGFR 25.44 POC Glucometer 151.48942 Random Glucose 144 H Calcium 7.5 L Phosphorus 6.5 H D Magnesium 2.8 H Total Bilirubin 0.6 D AST 13 L ALT < 6 L Alkaline Phosphatase 75 Total Protein 4.3 L Albumin 1.5 L 09/04/16 09/04/16 09/04/16 06:01 08:00 11:08 WBC RBC Hgb Hct MCV MCHC RDW Plt Count MPV Neutrophils % Lymphocytes % Monocytes % Eosinophils % Basophils % Puncture Site Right radial ABG pH 7.33 L ABG pCO2 at Pt Temp 50.9 H ABG pO2 at Pt Temp 147.0 H ABG HCO3 26.1 H ABG O2 Sat (Measured) 99.1 H ABG O2 Content 17.6 ABG Base Excess 0.1 Issac Test Positive O2 Delivery Device Vent Oxygen Flow Rate 60 Vent Mode A/c Vent Rate 18 Mechanical Rate Y PEEP 10.0 Pressure Support Vent 450 Sodium Potassium Chloride Carbon Dioxide Anion Gap BUN Creatinine Creat Clearance w eGFR POC Glucometer 175.14569 180.01691 Random Glucose Calcium Phosphorus Magnesium Total Bilirubin AST ALT Alkaline Phosphatase Total Protein Albumin Active Medications Generic Name Dose Route Start Last Admin Trade Name Freq PRN Reason Stop Dose Admin Acetylcysteine 600 mg 08/28/16 18:00 09/04/16 11:50 Mucomyst 20 Oral / Inh Use Only* NEB 600 mg QIDR LESLEE Administration Albuterol Sulfate 1 amp 08/28/16 18:00 09/04/16 11:50 Ventolin 0.083% Nebulizer Soln - NEB 1 amp QIDR LESLEE Administration Amiodarone HCl 200 mg 09/04/16 10:00 09/04/16 13:07 Cordarone - PO 200 mg DAILY LESLEE Administration Atorvastatin Calcium 20 mg 08/28/16 22:00 09/03/16 22:55 Lipitor - PO 20 mg HS LESLEE Administration Bupropion HCl 150 mg 08/29/16 10:00 09/04/16 13:07 Wellbutrin Xl - PO 150 mg DAILY LESLEE Administration Docusate Sodium 100 mg 09/03/16 06:00 09/04/16 06:19 Colace Liquid - PO 100 mg TID LESLEE Administration Duloxetine HCl 60 mg 08/29/16 10:00 09/04/16 09:26 Cymbalta - PO 60 mg DAILY LESLEE Administration Epoetin Keith 10,000 unit 08/30/16 10:00 09/04/16 13:07 Procrit - IVPUSH 10,000 unit MoWeFr@10 LESLEE Administration Heparin Sodium (Porcine) 1,000 unit 08/28/16 14:22 09/02/16 10:06 Heparin - IVPUSH 1,000 unit PRN PRN Administration Heparin Heparin Sodium (Porcine) 5,000 unit 08/28/16 14:22 Heparin - IVPUSH PRN PRN Heparin Ertapenem 1 gm/ Sodium 50 mls @ 100 mls/hr 08/30/16 10:00 09/04/16 09:27 Chloride IVPB 100 mls/hr DAILY LESLEE Administration Protocol Pantoprazole Sodium 100 mls @ 200 mls/hr 08/31/16 12:00 09/04/16 09:27 Protonix 40mg Ivpb (Pre-Docked) IVPB 200 mls/hr DAILY LESLEE Administration Propofol 100 mls @ 2.696 mls/hr 09/01/16 09:45 09/04/16 13:06 Diprivan - IVPB 16.174 mls/hr TITR LESLEE Administration Protocol 5 MCG/KG/MIN Phenylephrine HCl 20,000 mcg/ 250 mls @ 75 mls/hr 09/02/16 15:15 09/03/16 17:39 Sodium Chloride IVPB Not Given ASDIR LESLEE Protocol 100 MCG/MIN Insulin Aspart 1 vial 08/28/16 16:30 09/04/16 13:07 Novolog Vial Sliding Scale - SQ 3 units ACHS LESLEE Administration Protocol Methylprednisolone Sodium Succinate 40 mg 09/01/16 22:00 09/04/16 09:27 Solu-Medrol - IVPB 40 mg BID LESLEE Administration Metoprolol Tartrate 25 mg 08/28/16 22:00 09/04/16 09:23 Lopressor - PO 25 mg BID LESLEE Administration Nystatin 1 applic 08/29/16 10:00 09/04/16 09:23 Nystop Powder - TP 1 applic DAILY LESLEE Administration Polyethylene Glycol 17 gm 08/29/16 10:00 09/04/16 13:07 Miralax (For Daily Use) - PO Not Given DAILY LESLEE Sodium Chloride 2 spray 08/28/16 14:22 [place] Nasal [place] - NS Q12H PRN NASAL CONGESTION Tamsulosin HCl 0.4 mg 08/29/16 08:30 09/04/16 08:49 Flomax - PO 0.4 mg DAILY@0830 [facility] Administration ASSESSMENT/PLAN 75 year-old male with a significant PMH of HTN, HLD, CAD s/p stents x 2 (2014), diastolic heart failure, afib, COPD, recurrent episodes of respiratory failure requiring intubation, h/o GI bleed, h/o DVT and PE, CKD previously requiring HD , urinary retention with chronic lilly. Acute on chronic hypoxic and hypercapnic respiratory failure --intubated since 09/02 Acute blood loss anemia --Hgb drop 6.1-->8.2 s/p transfusion 2U PRBC --protonix PO BID --EGD/colon not an option for this critically ill patient Cardiogenic shock secondary to paroxysmal atrial fibrillation with RVR, improved --return to sinus rhythm with good rate control --BP stabilized, remains off pressors --continue PO amiodarone --heparin drip stopped 09/03, no anticoagulation due to bleeding Asthma/COPD --IV steroids --duonebs, mucomyst Acute on chronic diastolic heart failure --Echo: LV function normal, EF 57%; RV function normal; trace MR, trace TR --bilateral pleural effusions s/p bilateral pigtails both to gravity --continue to hold diuretics Acute on chronic renal failure --Cr continuing to trend down 2.5 --maintaining UOP ~40cc/hr HCAP --09/03 CXR: perihilar infiltrative changes --afebrile; persistent leukocytosis --continue Ertapenem Hyperlipidemia --continue Lipitor CAD s/p stents --continue ASA, Lipitor h/o DVT and PE --hold all a/c due to bleeding F/E/N Fluids: hold IV fluids Electrolytes: replete as indicated Nutrition: tube feeds started DVT prophylaxis: SCDs Dispo: continues to require ICU level care. Had a 30 minute conversation with on 09/03. Patient remains full code. She will think about trach and PEG. She would like patient to go to a local SNF rather than [facility] in [place]. Visit type - Emergency Visit Emergency Visit: Yes ED Registration Date: 08/23/16 Care time: The patient presented to the Emergency Department on the above date and was hospitalized for further evaluation of their emergent condition. - New Patient This patient is new to me today: No - Critical Care Critical Care patient: Yes Total Critical Care Time (in minutes): 35 Critical Care Statement: The care of this patient involved high complexity decision making to prevent further life threatening deterioration of the patient 's condition and/or to evalute & treat vital organ system(s) failure or risk of failure.
[2016-09-04] MEDS: PHENYLEPHRINE HCL 20,000 MCG in SODIUM CHLORIDE 248 ML IVPB SCH (15:50)
--- NOTE | 2016-09-04 16:45 | PN ---
Progress Note, Physician History of Present Illness: intubated no changes - Current Medication List Current Medications: Active Medications Acetylcysteine (Mucomyst 20 Oral / Inh Use Only*) 600 mg NEB QIDR [facility] Last Admin: 09/04/16 11:50 Dose: 600 mg Albuterol Sulfate (Ventolin 0.083% Nebulizer Soln -) 1 amp NEB QIDR [facility] Last Admin: 09/04/16 11:50 Dose: 1 amp Amiodarone HCl (Cordarone -) 200 mg PO DAILY [facility] Last Admin: 09/04/16 13:07 Dose: 200 mg Atorvastatin Calcium (Lipitor -) 20 mg PO HS [facility] Last Admin: 09/03/16 22:55 Dose: 20 mg Bupropion HCl (Wellbutrin Xl -) 150 mg PO DAILY [facility] Last Admin: 09/04/16 13:07 Dose: 150 mg Docusate Sodium (Colace Liquid -) 100 mg PO TID [facility] Last Admin: 09/04/16 15:50 Dose: Not Given Duloxetine HCl (Cymbalta -) 60 mg PO DAILY [facility] Last Admin: 09/04/16 09:26 Dose: 60 mg Epoetin Keith (Procrit -) 10,000 unit IVPUSH MoWeFr@10 [facility] Last Admin: 09/04/16 13:07 Dose: 10,000 unit Heparin Sodium (Porcine) (Heparin -) 1,000 unit IVPUSH PRN PRN PRN Reason: Heparin Last Admin: 09/02/16 10:06 Dose: 1,000 unit Heparin Sodium (Porcine) (Heparin -) 5,000 unit IVPUSH PRN PRN PRN Reason: Heparin Ertapenem 1 gm/ Sodium (Chloride) 50 mls @ 100 mls/hr IVPB DAILY [facility] PRN Reason: Protocol Last Admin: 09/04/16 09:27 Dose: 100 mls/hr Pantoprazole Sodium (Protonix 40mg Ivpb (Pre-Docked)) 100 mls @ 200 mls/hr IVPB DAILY [facility] Last Admin: 09/04/16 09:27 Dose: 200 mls/hr Propofol (Diprivan -) 100 mls @ 2.696 mls/hr IVPB TITR LESLEE; 5 MCG/KG/MIN PRN Reason: Protocol Last Admin: 09/04/16 13:06 Dose: 16.174 mls/hr Phenylephrine HCl 20,000 mcg/ (Sodium Chloride) 250 mls @ 75 mls/hr IVPB ASDIR [facility]; 100 MCG/MIN PRN Reason: Protocol Last Admin: 09/04/16 15:50 Dose: Not Given Insulin Aspart (Novolog Vial Sliding Scale -) 1 vial SQ ACHS [facility] PRN Reason: Protocol Last Admin: 09/04/16 13:07 Dose: 3 units Methylprednisolone Sodium Succinate (Solu-Medrol -) 40 mg IVPB BID [facility] Last Admin: 09/04/16 09:27 Dose: 40 mg Metoprolol Tartrate (Lopressor -) 25 mg PO BID [facility] Last Admin: 09/04/16 09:23 Dose: 25 mg Nystatin (Nystop Powder -) 1 applic TP DAILY [facility] Last Admin: 09/04/16 09:23 Dose: 1 applic Polyethylene Glycol (Miralax (For Daily Use) -) 17 gm PO DAILY [facility] Last Admin: 09/04/16 13:07 Dose: Not Given Sodium Chloride ([place] Nasal [place] -) 2 spray NS Q12H PRN PRN Reason: NASAL CONGESTION Tamsulosin HCl (Flomax -) 0.4 mg PO DAILY@0830 [facility] Last Admin: 09/04/16 08:49 Dose: 0.4 mg - Objective Vital Signs: Vital Signs Temperature 97.3 F L 09/04/16 14:00 Pulse Rate 65 09/04/16 16:00 Respiratory Rate 18 09/04/16 16:00 Blood Pressure 112/62 09/04/16 16:00 O2 Sat by Pulse Oximetry (%) 100 09/04/16 11:32 Constitutional: Yes: Other Cardiovascular: Yes: S1, S2 Respiratory: Yes: Intubated, Mechanically Ventilated, Other (pig tail catheter in place) Gastrointestinal: Yes: Normal Bowel Sounds, Soft Labs: CBC, BMP 09/04/16 05:55 09/04/16 05:55 INR, PTT INR 1.22 (0.82-1.09) H 08/27/16 06:00 Assessment/Plan - Problems (1) Acute and chronic respiratory failure with hypoxia Code(s): J96.21 - ACUTE AND CHRONIC RESPIRATORY FAILURE WITH HYPOXIA (2) Pneumonia Code(s): J18.9 - PNEUMONIA, UNSPECIFIED ORGANISM Qualifiers: Pneumonia type: due to unspecified organism Laterality: left Lung location: lower lobe of lung Qualified Code(s): J18.1 - Lobar pneumonia, unspecified organism (3) Pleural effusion Code(s): J90 - PLEURAL EFFUSION, NOT ELSEWHERE CLASSIFIED (4) Acute on chronic diastolic (congestive) heart failure Code(s): I50.33 - ACUTE ON CHRONIC DIASTOLIC (CONGESTIVE) HEART FAILURE (5) COPD (chronic obstructive pulmonary disease) Code(s): J44.9 - CHRONIC OBSTRUCTIVE PULMONARY DISEASE, UNSPECIFIED (6) Renal failure (ARF), acute on chronic Code(s): N17.9 - ACUTE KIDNEY FAILURE, UNSPECIFIED N18.9 - CHRONIC KIDNEY DISEASE, UNSPECIFIED (7) Diabetes Code(s): E11.9 - TYPE 2 DIABETES MELLITUS WITHOUT COMPLICATIONS Qualifiers: Diabetes mellitus type: type 2 Diabetes mellitus complication status: with kidney complications Diabetes mellitus complication detail: with chronic kidney disease (8) Atrial fibrillation Code(s): I48.91 - UNSPECIFIED ATRIAL FIBRILLATION 9 bilateral cellulitis of the legs plan continue to monitor most of the cx reports negative further plan will have to be thought about will have to see what is mental status is rest ct as per icu cc time 40 min
[2016-09-04] MEDS ORDERED: PT OWN MED DRAWER 7, Y5N ONE (21:02)
[2016-09-04] MEDS: ATORVASTATIN CA 20 MG TABLET (FP) PO SCH (21:42)
[2016-09-05] MEDS ORDERED: HEMOQUE TEST 1 EACH EACH ONE (05:53)
[2016-09-05 06:21] LABS: MCH 27.5 pg (25.7-33.7); MCHC 32.5 g/dl (32.0-35.9); MEAN CELL VOLUME 84.7 fl (80-96); MEAN PLT VOLUME 7.9 fl (7.5-11.1); PLATELET COUNT 182 K/MM3 (134-434); RDW 17.2 % (11.9-15.9); WHITE BLOOD COUNT 11.2 K/mm3 (4.0-10.0)
[2016-09-05] MEDS: ALBUTEROL SO4 0.083% IH SOL 2.5 MG/3 ML VIAL.NEB. NEB SCH ×4 (06:35→17:15)
[2016-09-05] MEDS: ACETYLCYSTEINE 20% 200MG/ML 4 ML VIAL *FOR ORAL / INH USE ONLY NEB SCH ×4 (06:35→17:15)
[2016-09-05 06:46] LABS: ALBUMIN 1.5 g/dl (3.4-5.0); ANION GAP 13 (8-16); CALCIUM 7.6 mg/dL (8.5-10.1); CO2 28 mmol/L (21-32); GLUCOSE,RANDOM 165 mg/dL (74-106); MAGNESIUM 3.1 mg/dL (1.8-2.4)
[2016-09-05 06:52] LABS: ALK PHOS 73 U/L (45-117); BILIRUBIN,TOTAL 0.4 mg/dL (0.2-1.0); COCKROFT - GAULT 37.19; CREATININE 2.4 mg/dL (0.7-1.3); SGOT/AST 8 U/L (15-37); SGPT/ALT < 6 U/L (12-78); TOT PROT 4.2 g/dl (6.4-8.2)
[2016-09-05] MEDS: DOCUSATE NA 100 MG/10 ML UNIT-DOSE CUPS PO SCH ×3 (06:56→21:33)
[2016-09-05] MEDS: INSULIN SLIDING SCALE (NOVOLOG) 1 VIAL SQ SCH ×4 (06:57→23:16)
[2016-09-05 07:36] LABS: ARTERIAL BLD GAS O2 SATURATION 99.6 % (90-98.9); ARTERIAL BLOOD GAS BASE EXCESS 1.8 meq/l (-2-2); ARTERIAL BLOOD GAS HCO3 26.9 meq/L (22-26); ARTERIAL BLOOD GAS pH 7.37 (7.35-7.45)
[2016-09-05 07:37] LABS: ALLENS TEST POSITIVE; ART PUNCT SITE LEFT RADIAL; LPM/O2% 45; MECH. VENT. YES; PT. ON O2? YES; TYPE OF O2 VENT; VENT RATE 16; VT/PRESS 500
--- NOTE | 2016-09-05 07:59 | PN ---
Physical Exam: SUBJECTIVE: Patient seen and examined at bedside in ICU this AM. Intubated & sedated, afebrile & without any acute events overnight. Good output from bilateral pigtail catheters (>1.5L each) with significant reduction in effusions on CXR. Accepted for LTAC. Will optimize respiratory status pending transfer. OBJECTIVE: Vital Signs Period Temp Pulse Resp BP Sys/[place] Pulse Ox Last 24 Hr 97.1 F-97.6 F 64-73 16-18 102-114/54-83 96-100 GENERAL: Intubated & sedated. Resting comfortably in bed. HEENT: Atraumatic, EOMI, PERRLA, No lymphadenopathy noted, dry tongue/lips LUNGS: Mildly diminished breath sounds bilateral lung rey. No wheezes or accessory muscle use noted. HEART: Regular rate and rhythm, normal S1 and S2 with systolic murmur, rub or gallop. ABDOMEN: Soft, obese, nontender, not distended, normoactive bowel sounds, no guarding, no rebound, no masses. No hepatomegaly or splenomegaly. EXTREMITIES: 2+ pulses, warm, well-perfused. No calf tenderness. No peripheral edema. NEUROLOGICAL: Cranial nerves II-XII intact. Speech & gait deferred. PSYCHIATRIC: Cooperative. Good eye contact. Much less anxious than before. SKIN: Bilateral lower ext with skin discoloration with dark yellow patches and venous stasis. No signs of fluid overload. Laboratory Results - last 24 hr 09/04/16 09/04/16 09/04/16 08:00 11:08 16:37 WBC RBC Hgb Hct MCV MCHC RDW Plt Count MPV Puncture Site Right radial ABG pH 7.33 L ABG pCO2 at Pt Temp 50.9 H ABG pO2 at Pt Temp 147.0 H ABG HCO3 26.1 H ABG O2 Sat (Measured) 99.1 H ABG O2 Content 17.6 ABG Base Excess 0.1 Issac Test Positive O2 Delivery Device Vent Oxygen Flow Rate 60 Vent Mode A/c Vent Rate 18 Mechanical Rate Y PEEP 10.0 Pressure Support Vent 450 Sodium Potassium Chloride Carbon Dioxide Anion Gap BUN Creatinine Creat Clearance w eGFR POC Glucometer 180.00189 179.87538 Random Glucose Calcium Magnesium Total Bilirubin AST ALT Alkaline Phosphatase Total Protein Albumin 09/04/16 09/05/16 09/05/16 21:54 05:45 05:45 WBC 11.2 H RBC 2.84 L Hgb 7.8 L Hct 24.1 L MCV 84.7 MCHC 32.5 RDW 17.2 H Plt Count 182 MPV 7.9 Puncture Site ABG pH ABG pCO2 at Pt Temp ABG pO2 at Pt Temp ABG HCO3 ABG O2 Sat (Measured) ABG O2 Content ABG Base Excess Issac Test O2 Delivery Device Oxygen Flow Rate Vent Mode Vent Rate Mechanical Rate PEEP Pressure Support Vent Sodium 139 Potassium 4.3 Chloride 98 Carbon Dioxide 28 Anion Gap 13 BUN 89 H Creatinine 2.4 H Creat Clearance w eGFR 26.67 POC Glucometer 264.29621 Random Glucose 165 H Calcium 7.6 L Magnesium 3.1 H Total Bilirubin 0.4 D AST 8 L D ALT < 6 L Alkaline Phosphatase 73 Total Protein 4.2 L Albumin 1.5 L 09/05/16 09/05/16 05:50 07:10 WBC RBC Hgb Hct MCV MCHC RDW Plt Count MPV Puncture Site Left radial ABG pH 7.37 ABG pCO2 at Pt Temp 47.7 H ABG pO2 at Pt Temp 149.0 H ABG HCO3 26.9 H ABG O2 Sat (Measured) 99.6 H* ABG O2 Content 11.7 L ABG Base Excess 1.8 Issac Test Positive O2 Delivery Device Vent Oxygen Flow Rate 45 Vent Mode A/c Vent Rate 16 Mechanical Rate Yes PEEP 7.0 Pressure Support Vent 500 Sodium Potassium Chloride Carbon Dioxide Anion Gap BUN Creatinine Creat Clearance w eGFR POC Glucometer 194.53233 Random Glucose Calcium Magnesium Total Bilirubin AST ALT Alkaline Phosphatase Total Protein Albumin Active Medications Generic Name Dose Route Start Last Admin Trade Name [place] PRN Reason Stop Dose Admin Acetylcysteine 600 mg 08/28/16 18:00 09/05/16 06:35 Mucomyst 20 Oral / Inh Use Only* NEB 600 mg QIDR LESLEE Administration Albuterol Sulfate 1 amp 08/28/16 18:00 09/05/16 06:35 Ventolin 0.083% Nebulizer Soln - NEB 1 amp QIDR LESLEE Administration Amiodarone HCl 200 mg 09/04/16 10:00 09/04/16 13:07 Cordarone - PO 200 mg DAILY LESLEE Administration Atorvastatin Calcium 20 mg 08/28/16 22:00 09/04/16 21:42 Lipitor - PO 20 mg HS LESLEE Administration Bupropion HCl 150 mg 08/29/16 10:00 09/04/16 13:07 Wellbutrin Xl - PO 150 mg DAILY LESLEE Administration Docusate Sodium 100 mg 09/03/16 06:00 09/05/16 06:56 Colace Liquid - PO Not Given TID LESLEE Duloxetine HCl 60 mg 08/29/16 10:00 09/04/16 09:26 Cymbalta - PO 60 mg DAILY LESLEE Administration Epoetin Keith 10,000 unit 08/30/16 10:00 09/04/16 13:07 Procrit - IVPUSH 10,000 unit MoWeFr@10 LESLEE Administration Heparin Sodium (Porcine) 1,000 unit 08/28/16 14:22 09/02/16 10:06 Heparin - IVPUSH 1,000 unit PRN PRN Administration Heparin Heparin Sodium (Porcine) 5,000 unit 08/28/16 14:22 Heparin - IVPUSH PRN PRN Heparin Ertapenem 1 gm/ Sodium 50 mls @ 100 mls/hr 08/30/16 10:00 09/04/16 09:27 Chloride IVPB 100 mls/hr DAILY LESLEE Administration Protocol Pantoprazole Sodium 100 mls @ 200 mls/hr 08/31/16 12:00 09/04/16 09:27 Protonix 40mg Ivpb (Pre-Docked) IVPB 200 mls/hr DAILY LESLEE Administration Propofol 100 mls @ 2.696 mls/hr 09/01/16 09:45 09/04/16 13:06 Diprivan - IVPB 16.174 mls/hr TITR LESLEE Administration Protocol 5 MCG/KG/MIN Phenylephrine HCl 20,000 mcg/ 250 mls @ 75 mls/hr 09/02/16 15:15 09/04/16 15:50 Sodium Chloride IVPB Not Given ASDIR LESLEE Protocol 100 MCG/MIN Insulin Aspart 1 vial 08/28/16 16:30 09/05/16 06:57 Novolog Vial Sliding Scale - SQ 3 units ACHS LSELEE Administration Protocol Methylprednisolone Sodium Succinate 40 mg 09/01/16 22:00 09/04/16 21:44 Solu-Medrol - IVPB 40 mg BID LESLEE Administration Metoprolol Tartrate 25 mg 08/28/16 22:00 09/04/16 21:42 Lopressor - PO 25 mg BID LESLEE Administration Nystatin 1 applic 08/29/16 10:00 09/04/16 09:23 Nystop Powder - TP 1 applic DAILY [facility] Administration Polyethylene Glycol 17 gm 08/29/16 10:00 09/04/16 13:07 Miralax (For Daily Use) - PO Not Given DAILY [facility] Sodium Chloride 2 spray 08/28/16 14:22 [place] Nasal [place] - NS Q12H PRN NASAL CONGESTION Tamsulosin HCl 0.4 mg 08/29/16 08:30 09/04/16 08:49 Flomax - PO 0.4 mg DAILY@0830 [facility] Administration ASSESSMENT/PLAN: 75 year old male with PMH of HTN, HLD, CAD s/p stents x2 in 2014, diastolic CHF , AFIB, COPD, DVT and PE presented to ED last night from [place] for SOB & poor PO intake since being discharged from [facility] on 08/21/2016 for similar presentation. Found to be in ARF with right pleural effusion (larger than on discharge). #Acute Respiratory Failure, multifactorial etiology (aspiration pneumonia, superimposed on COPD exacerbation & chronic diastolic CHF) -Intubated & sedated on propofol with good oxygen saturation -Ertapenem for aspiration pneumonia DAY 7 -Solumedrol 40mg BID -Mucinex, Mucomyst/Ventolin treatments -Chest PT -CXR reviewed, bilateral effusions resolved s/p pigtail catheter placement -IR Consult appreciated -ID Consult appreciated #Anemia, (+) stool guiac -H/H stable s/p 1unit PRBC on 09/03 (has received 2 total units PRBC this admission) -EPO, Feosol being given as well -patient refused GI workup (colonoscopy/endoscopy) -will continue to monitor H/H for any signs of bleeding -GI Consult appreciated #KARLOS, improving (likely d/t poor PO intake & periods of relative hypotension during hospital stay) -Free water via NG tube for hydration -will monitor & trend kidney function -avoid nephrotoxic meds -hx of urinary retention with chronic lilly catheter -continue home meds: Flomax 0.4mg PO DAILY -nephrology consult appreciated #HTN/HTL/A-Fib history -currently on: Lopressor 25mg PO BID, Lipitor 20mg PO HS, Amiodarone 200mg PO DAILY -need to discuss benefits & risks of full AC in setting of recurrent GI Bleeds with patient before starting Aspirin/Eliquis #Constipation -continue regimen: Colace, Miralax, Senna #Anxiety Hx -continue home meds: Wellbutrin 150mg PO DAILY, Cymbalta 60mg PO DAILY #DM -ISS -BGM Prophylaxis/FEN -Heparin -PPI -monitor electrolytes -Tube feed w/ free water Dispo: Patient states he wants FULL CODE status. Accepted for LTAC (pending transfer). Visit type - Emergency Visit Emergency Visit: Yes ED Registration Date: 08/23/16 Care time: The patient presented to the Emergency Department on the above date and was hospitalized for further evaluation of their emergent condition. - New Patient This patient is new to me today: No - Critical Care Critical Care patient: Yes Total Critical Care Time (in minutes): 45 Critical Care Statement: The care of this patient involved high complexity decision making to prevent further life threatening deterioration of the patient 's condition and/or to evalute & treat vital organ system(s) failure or risk of failure.
[2016-09-05] MEDS: ERTAPENEM SODIUM 1 GM in SODIUM CHLORIDE 50 ML IVPB SCH (09:26)
[2016-09-05] MEDS: TAMSULOSIN HCL 0.4 MG CAP.ER.24H (FP) PO SCH (09:27)
[2016-09-05] MEDS: PANTOPRAZOLE SODIUM 100 ML IVPB SCH (09:27)
[2016-09-05] MEDS: METOPROLOL TARTRATE 25 MG TABLET (FP) PO SCH ×2 (09:28→21:32)
[2016-09-05] MEDS: methylPREDNISolone NA SUCC 40 MG/1 ML VIAL IVPB SCH ×2 (09:28→21:33)
[2016-09-05] MEDS: AMIODARONE HCL 200 MG TABLET (FP) PO SCH (09:28)
[2016-09-05] MEDS: POLYETHYLENE GLYCOL 3350 119 GM BTL PO SCH (09:28)
[2016-09-05] MEDS: DULoxetine HCL 30 MG CAPSULE.DR (FP) PO SCH (09:28)
[2016-09-05] MEDS: NYSTATIN POWDER 100,000 UNITS/GM - 15 GM TOPICAL POWDER TP SCH (09:29)
[2016-09-05] MEDS: PROPOFOL 100 ML IVPB SCH ×3 (10:00→21:33)
--- NOTE | 2016-09-05 10:15 | PN ---
Progress Note, Physician Chief Complaint: intubated, sedated on vent History of Present Illness: TELE: NSR - Current Medication List Current Medications: Active Medications Acetylcysteine (Mucomyst 20 Oral / Inh Use Only*) 600 mg NEB QIDR [facility] Last Admin: 09/05/16 06:35 Dose: 600 mg Albuterol Sulfate (Ventolin 0.083% Nebulizer Soln -) 1 amp NEB QIDR [facility] Last Admin: 09/05/16 06:35 Dose: 1 amp Amiodarone HCl (Cordarone -) 200 mg PO DAILY [facility] Last Admin: 09/05/16 09:28 Dose: 200 mg Atorvastatin Calcium (Lipitor -) 20 mg PO HS [facility] Last Admin: 09/04/16 21:42 Dose: 20 mg Bupropion HCl (Wellbutrin Xl -) 150 mg PO DAILY [facility] Last Admin: 09/05/16 09:28 Dose: 150 mg Docusate Sodium (Colace Liquid -) 100 mg PO TID [facility] Last Admin: 09/05/16 06:56 Dose: Not Given Duloxetine HCl (Cymbalta -) 60 mg PO DAILY [facility] Last Admin: 09/05/16 09:28 Dose: 60 mg Epoetin Keith (Procrit -) 10,000 unit IVPUSH MoWeFr@10 [facility] Last Admin: 09/04/16 13:07 Dose: 10,000 unit Heparin Sodium (Porcine) (Heparin -) 1,000 unit IVPUSH PRN PRN PRN Reason: Heparin Last Admin: 09/02/16 10:06 Dose: 1,000 unit Heparin Sodium (Porcine) (Heparin -) 5,000 unit IVPUSH PRN PRN PRN Reason: Heparin Ertapenem 1 gm/ Sodium (Chloride) 50 mls @ 100 mls/hr IVPB DAILY [facility] PRN Reason: Protocol Last Admin: 09/05/16 09:26 Dose: 100 mls/hr Pantoprazole Sodium (Protonix 40mg Ivpb (Pre-Docked)) 100 mls @ 200 mls/hr IVPB DAILY [facility] Last Admin: 09/05/16 09:27 Dose: 200 mls/hr Propofol (Diprivan -) 100 mls @ 2.696 mls/hr IVPB TITR [facility]; 5 MCG/KG/MIN PRN Reason: Protocol Last Admin: 09/04/16 13:06 Dose: 16.174 mls/hr Phenylephrine HCl 20,000 mcg/ (Sodium Chloride) 250 mls @ 75 mls/hr IVPB ASDIR [facility]; 100 MCG/MIN PRN Reason: Protocol Last Admin: 09/04/16 15:50 Dose: Not Given Insulin Aspart (Novolog Vial Sliding Scale -) 1 vial SQ ACHS [facility] PRN Reason: Protocol Last Admin: 09/05/16 06:57 Dose: 3 units Methylprednisolone Sodium Succinate (Solu-Medrol -) 40 mg IVPB BID [facility] Last Admin: 09/05/16 09:28 Dose: 40 mg Metoprolol Tartrate (Lopressor -) 25 mg PO BID [facility] Last Admin: 09/05/16 09:28 Dose: 25 mg Nystatin (Nystop Powder -) 1 applic TP DAILY [facility] Last Admin: 09/05/16 09:29 Dose: 1 applic Polyethylene Glycol (Miralax (For Daily Use) -) 17 gm PO DAILY [facility] Last Admin: 09/05/16 09:28 Dose: 17 gm Sodium Chloride ([place] Nasal [place] -) 2 spray NS Q12H PRN PRN Reason: NASAL CONGESTION Tamsulosin HCl (Flomax -) 0.4 mg PO DAILY@0830 [facility] Last Admin: 09/05/16 09:27 Dose: 0.4 mg - Objective Vital Signs: Vital Signs Temperature 97.6 F 09/05/16 02:00 Pulse Rate 72 09/05/16 10:00 Respiratory Rate 16 09/05/16 10:03 Blood Pressure 116/64 09/05/16 10:00 O2 Sat by Pulse Oximetry (%) 100 09/05/16 10:03 Constitutional: Yes: No Distress Eyes: Yes: Conjunctiva Clear Cardiovascular: Yes: Regular Rate and Rhythm Respiratory: Yes: Other (= breath sounds b/l) Gastrointestinal: Yes: Soft, Abdomen, Obese Edema: Yes Edema: LLE: 1+, RLE: 1+ Labs: CBC, BMP 09/05/16 05:45 09/05/16 05:45 INR, PTT INR 1.22 (0.82-1.09) H 08/27/16 06:00 - ....Imaging EKG: Image Reviewed Assessment/Plan IMP: Acute on chronic exacerbation COPD, Right lower lobe PNA, probable left sided mucous plug and acute on chronic hypoxemic and hypercarbic respiratory failure Acute on chronic renal failure, suspected ATN from periods of relative hypotension Anemia CAD s/p PCI History of DVT REC: 1. PNA, chronic COPD, mucous plugging superimposed chronic diastolic CHF: -re-intubated -Abx as per ID - s/p b/l pigtail catheters 2. ARF: -As per renal -Avoid nephrotoxins (no PIPER/ARB) -Avoid hypotension, hold parameters placed on amlodipine 3. Anemia: -guaiac + -Follow H/H -For now bridging w/ heparin gtts 4. CAD s/p PCI: -ASA on hold due to anemia and guaiac + stool 5. History DVT: -On heparin gtts 6. PAF w/RVR: -events of weekend noted -Required dig and amio gtts -would try to d/c amio and continue with metoprolol in light of chronic lung disease -Short term use is ok
--- NOTE | 2016-09-05 10:59 | PN ---
Progress Note (short form) - Note Progress Note: Renal Follow up for KARLOS/CKD Pt seen and examined in the ICU intubated, sedated on 45% FiO2 good urine output Vital Signs Temperature 97.6 F 09/05/16 02:00 Pulse Rate 72 09/05/16 10:00 Respiratory Rate 16 09/05/16 10:03 Blood Pressure 116/64 09/05/16 10:00 O2 Sat by Pulse Oximetry (%) 100 09/05/16 10:03 Intake & Output 09/02/16 09/03/16 09/04/16 09/05/16 23:59 23:59 23:59 23:59 Intake Total 2338.3 4282.0 1994.8 240 Output Total 1000 1100 1450 945 Balance 1338.3 3182.0 544.8 -705 Weight 199 lb 206 lb 211 lb 8 oz 213 lb 2.992 oz Gen: NAD intuabted CVS: RRR, No M/R Lungs: Course BS, no wheeze, no rales, B/L chest tubes Abd: soft, obese, NT/ND Ext: 1+ LE edema CBC, BMP 09/05/16 05:45 09/05/16 05:45 Laboratory Tests 09/05/16 05:45 Calcium 7.6 L Magnesium 3.1 H Albumin 1.5 L Current Medications Acetylcysteine (Mucomyst 20 Oral / Inh Use Only*) 600 mg NEB QIDR [facility] Last Admin: 09/05/16 06:35 Dose: 600 mg Albuterol Sulfate (Ventolin 0.083% Nebulizer Soln -) 1 amp NEB QIDR [facility] Last Admin: 09/05/16 06:35 Dose: 1 amp Amiodarone HCl (Cordarone -) 200 mg PO DAILY [facility] Last Admin: 09/05/16 09:28 Dose: 200 mg Atorvastatin Calcium (Lipitor -) 20 mg PO HS [facility] Last Admin: 09/04/16 21:42 Dose: 20 mg Bupropion HCl (Wellbutrin Xl -) 150 mg PO DAILY [facility] Last Admin: 09/05/16 09:28 Dose: 150 mg Docusate Sodium (Colace Liquid -) 100 mg PO TID [facility] Last Admin: 09/05/16 06:56 Dose: Not Given Duloxetine HCl (Cymbalta -) 60 mg PO DAILY [facility] Last Admin: 09/05/16 09:28 Dose: 60 mg Epoetin Keith (Procrit -) 10,000 unit IVPUSH MoWeFr@10 [facility] Last Admin: 09/04/16 13:07 Dose: 10,000 unit Heparin Sodium (Porcine) (Heparin -) 1,000 unit IVPUSH PRN PRN PRN Reason: Heparin Last Admin: 09/02/16 10:06 Dose: 1,000 unit Heparin Sodium (Porcine) (Heparin -) 5,000 unit IVPUSH PRN PRN PRN Reason: Heparin Ertapenem 1 gm/ Sodium (Chloride) 50 mls @ 100 mls/hr IVPB DAILY [facility] PRN Reason: Protocol Last Admin: 09/05/16 09:26 Dose: 100 mls/hr Pantoprazole Sodium (Protonix 40mg Ivpb (Pre-Docked)) 100 mls @ 200 mls/hr IVPB DAILY [facility] Last Admin: 09/05/16 09:27 Dose: 200 mls/hr Propofol (Diprivan -) 100 mls @ 2.696 mls/hr IVPB TITR [facility]; 5 MCG/KG/MIN PRN Reason: Protocol Last Admin: 09/04/16 13:06 Dose: 16.174 mls/hr Phenylephrine HCl 20,000 mcg/ (Sodium Chloride) 250 mls @ 75 mls/hr IVPB ASDIR [facility]; 100 MCG/MIN PRN Reason: Protocol Last Admin: 09/04/16 15:50 Dose: Not Given Insulin Aspart (Novolog Vial Sliding Scale -) 1 vial SQ ACHS [facility] PRN Reason: Protocol Last Admin: 09/05/16 06:57 Dose: 3 units Methylprednisolone Sodium Succinate (Solu-Medrol -) 40 mg IVPB BID [facility] Last Admin: 09/05/16 09:28 Dose: 40 mg Metoprolol Tartrate (Lopressor -) 25 mg PO BID [facility] Last Admin: 09/05/16 09:28 Dose: 25 mg Nystatin (Nystop Powder -) 1 applic TP DAILY [facility] Last Admin: 09/05/16 09:29 Dose: 1 applic Polyethylene Glycol (Miralax (For Daily Use) -) 17 gm PO DAILY [facility] Last Admin: 09/05/16 09:28 Dose: 17 gm Sodium Chloride ([place] Nasal [place] -) 2 spray NS Q12H PRN PRN Reason: NASAL CONGESTION Tamsulosin HCl (Flomax -) 0.4 mg PO DAILY@0830 [facility] Last Admin: 09/05/16 09:27 Dose: 0.4 mg A/P 75 year old Gentleman with PMhx of CKD (Hx of KARLOS requiring dialysis), Hypertension, COPD on O2, BPH, Gout, CAD, Diastolic CHF who presented from Rehab with acute Resp Failure and found to have KARLOS on CKD. #Acute on Chronic Renal Failure with suspected ATN renal function improved but removes above baseline pt is non-oliguric keep MAP> 65 PRN Lasix Dose all meds for Cr Cl less then 30 #Hypernatremia on oral water via NGT Na is now WNL #Resp Failure on BIPAP/Pleural effusion now intubated management as per ICU #Anemia Continue Epogen and iron Hgb 6.1 this am, will transfuse 2 prbc #Shock/Cardiogenic with Rapid afib +/- Sepsis Care as per ICU Melvin Johnson DO
--- NOTE | 2016-09-05 11:28 | PN ---
Progress Note (short form) - Note Progress Note: Subjective: The patient was seen and examined in the ICU intubated, sedated. Awaiting final decision from for trach Current Medications Generic Name Dose Route Start Last Admin Trade Name Freq PRN Reason Stop Dose Admin Acetylcysteine 600 mg 08/28/16 18:00 09/05/16 06:35 Mucomyst 20 Oral / Inh Use Only* NEB 600 mg QIDR [facility] Administration Albuterol Sulfate 1 amp 08/28/16 18:00 09/05/16 06:35 Ventolin 0.083% Nebulizer Soln - NEB 1 amp QIDR [facility] Administration Amiodarone HCl 200 mg 09/04/16 10:00 09/05/16 09:28 Cordarone - PO 200 mg DAILY [facility] Administration Atorvastatin Calcium 20 mg 08/28/16 22:00 09/04/16 21:42 Lipitor - PO 20 mg HS [facility] Administration Bupropion HCl 150 mg 08/29/16 10:00 09/05/16 09:28 Wellbutrin Xl - PO 150 mg DAILY [facility] Administration Docusate Sodium 100 mg 09/03/16 06:00 09/05/16 06:56 Colace Liquid - PO Not Given TID [facility] Duloxetine HCl 60 mg 08/29/16 10:00 09/05/16 09:28 Cymbalta - PO 60 mg DAILY [facility] Administration Epoetin Keith 10,000 unit 08/30/16 10:00 09/04/16 13:07 Procrit - IVPUSH 10,000 unit MoWeFr@10 [facility] Administration Heparin Sodium (Porcine) 1,000 unit 08/28/16 14:22 09/02/16 10:06 Heparin - IVPUSH 1,000 unit PRN PRN Administration Heparin Heparin Sodium (Porcine) 5,000 unit 08/28/16 14:22 Heparin - IVPUSH PRN PRN Heparin Ertapenem 1 gm/ Sodium 50 mls @ 100 mls/hr 08/30/16 10:00 09/05/16 09:26 Chloride IVPB 100 mls/hr DAILY [facility] Administration Protocol Pantoprazole Sodium 100 mls @ 200 mls/hr 08/31/16 12:00 09/05/16 09:27 Protonix 40mg Ivpb (Pre-Docked) IVPB 200 mls/hr DAILY [facility] Administration Propofol 100 mls @ 2.696 mls/hr 09/01/16 09:45 09/04/16 13:06 Diprivan - IVPB 16.174 mls/hr TITR [facility] Administration Protocol 5 MCG/KG/MIN Phenylephrine HCl 20,000 mcg/ 250 mls @ 75 mls/hr 09/02/16 15:15 09/04/16 15:50 Sodium Chloride IVPB Not Given ASDIR [facility] Protocol 100 MCG/MIN Insulin Aspart 1 vial 08/28/16 16:30 09/05/16 06:57 Novolog Vial Sliding Scale - SQ 3 units ACHS [facility] Administration Protocol Methylprednisolone Sodium Succinate 40 mg 09/01/16 22:00 09/05/16 09:28 Solu-Medrol - IVPB 40 mg BID [facility] Administration Metoprolol Tartrate 25 mg 08/28/16 22:00 09/05/16 09:28 Lopressor - PO 25 mg BID [facility] Administration Nystatin 1 applic 08/29/16 10:00 09/05/16 09:29 Nystop Powder - TP 1 applic DAILY [facility] Administration Polyethylene Glycol 17 gm 08/29/16 10:00 09/05/16 09:28 Miralax (For Daily Use) - PO 17 gm DAILY [facility] Administration Sodium Chloride 2 spray 08/28/16 14:22 [place] Nasal [place] - NS Q12H PRN NASAL CONGESTION Tamsulosin HCl 0.4 mg 08/29/16 08:30 09/05/16 09:27 Flomax - PO 0.4 mg DAILY@0830 [facility] Administration Objective: Vital Signs Period Temp Pulse Resp BP Sys/[place] Pulse Ox Last 24 Hr 97.3 F-97.6 F 64-73 16-18 102-123/54-83 100-100 Physical Exam: General: NAD, A&Ox3 Lungs: B/l scattered rhonchi Heart: RRR, S1S2 Abd: Soft, non-tender, non-distended. Normoactive bowel sounds Ext: B/l upper/lower extremity edema. Chronic venous stasis changes CBCD WBC 11.2 K/mm3 (4.0-10.0) H 09/05/16 05:45 RBC 2.84 M/mm3 (4.00-5.60) L 09/05/16 05:45 Hgb 7.8 GM/dL (11.7-16.9) L 09/05/16 05:45 Hct 24.1 % (35.4-49) L 09/05/16 05:45 MCV 84.7 fl (80-96) 09/05/16 05:45 MCHC 32.5 g/dl (32.0-35.9) 09/05/16 05:45 RDW 17.2 % (11.9-15.9) H 09/05/16 05:45 Plt Count 182 K/MM3 (134-434) 09/05/16 05:45 MPV 7.9 fl (7.5-11.1) 09/05/16 05:45 CMP Sodium 139 mmol/L (136-145) 09/05/16 05:45 Potassium 4.3 mmol/L (3.5-5.1) 09/05/16 05:45 Chloride 98 mmol/L (98-107) 09/05/16 05:45 Carbon Dioxide 28 mmol/L (21-32) 09/05/16 05:45 Anion Gap 13 (8-16) 09/05/16 05:45 BUN 89 mg/dL (7-18) H 09/05/16 05:45 Creatinine 2.4 mg/dL (0.7-1.3) H 09/05/16 05:45 Creat Clearance w eGFR 26.67 (>60) 09/05/16 05:45 Glucose Y 08/26/16 08:10 Random Glucose 165 mg/dL (74-106) H 09/05/16 05:45 Calcium 7.6 mg/dL (8.5-10.1) L 09/05/16 05:45 Total Bilirubin 0.4 mg/dL (0.2-1.0) D 09/05/16 05:45 AST 8 U/L (15-37) L D 09/05/16 05:45 ALT < 6 U/L (12-78) L 09/05/16 05:45 Alkaline Phosphatase 73 U/L (45-117) 09/05/16 05:45 Total Protein 4.2 g/dl (6.4-8.2) L 09/05/16 05:45 Albumin 1.5 g/dl (3.4-5.0) L 09/05/16 05:45 CARDIAC ENZYMES Creatine Kinase 9 IU/L (39-308) L 08/24/16 05:20 Troponin I < 0.02 ng/ml (0.00-0.05) 08/24/16 05:20 Microbiology 08/30/16 13:40 Pleural Fluid AFB Smear Concentration - Final 08/30/16 13:40 Pleural Fluid Mycobacterial Culture - Preliminary 08/30/16 13:40 Pleural Fluid Gram Stain - Final 08/30/16 13:40 Pleural Fluid Body Fluid Culture - Final NO GROWTH OF AEROBIC ORGANISMS AFTER 48 HOURS INCUBATION 08/30/16 13:40 Pleural Fluid Anaerobic Culture - Final NO ANAEROBES WERE ISOLATED 08/30/16 13:40 Pleural Fluid ALANA Preparation - Preliminary 08/30/16 13:40 Pleural Fluid Fungal Culture - Preliminary 08/23/16 19:10 Blood - Peripheral Venous Blood Culture - Final NO GROWTH AFTER 5 DAYS INCUBATION 08/23/16 19:10 Blood - Peripheral Venous Blood Culture - Final NO GROWTH AFTER 5 DAYS INCUBATION 08/23/16 20:26 Urine - Urine Clean Catch Urine Culture - Final NO GROWTH OBTAINED 08/23/16 21:56 Urine For Antigen Detection Legionella Antigen - Final 08/23/16 21:56 Urine For Antigen Detection Streptococcus pneumoniae Antigen (M - Final Assessment: This is a 75 year old male with PMHx of HTN, hyperlipidemia, CAD s/ p stenting x2 (2014), diastolic heart failure, a.fib, COPD, respiratory failure requiring intubation (02/2016-04/2016), GI bleed, h/o DVT and PE, urinary retention with chronic lilly catheter who presented to the ED with shortness of breath and refusal to take any po medications. Plan: 3) Pulmonary: Acute on chronic hypoxic hypercapnic respiratory failure - Intubated on 09/02 - For possible trach, awaiting consent from - Continue Methylprednisolone - Continue Duonebs - Continue Mucomyst - Appreciate pulmonary consult B/l pleural effusions R>L - S/p b/l pigtail catheter placement on 08/30 2) GI: Acute blood loss anemia - S/p 2u PRBC 09/03, Hgb today 7.8 - Continue Protonix - Patient refused GI workup including EGD/colonoscopy prior to intubation - Appreciate GI consult 3) Cardiology: Chronic diastolic heart failure - Hold all diuretics as the patient appears intravascularly depleted - Hold ASA, given acute blood loss anemia DVT/PE - On Heparin gtt now Paroxysmal a.fib HTN - Controlled BP Hyperlipidemia 4) : KARLOS on CKD - Continue to monitor Cr - Avoid hypotension - Appreciate nephrology consult 5) F/E/N: - Monitor electrolytes - Tube feeds 6) Prophylaxis: - Continue Heparin gtt 7) Dispo: - Requires continued inpatient care - Was accepted to [facility] once stable to be discharged CODE STATUS: FULL CODE Visit type - Emergency Visit Emergency Visit: Yes ED Registration Date: 08/23/16 Care time: The patient presented to the Emergency Department on the above date and was hospitalized for further evaluation of their emergent condition. - New Patient This patient is new to me today: No - Critical Care Critical Care patient: Yes Total Critical Care Time (in minutes): 55 Critical Care Statement: The care of this patient involved high complexity decision making to prevent further life threatening deterioration of the patient 's condition and/or to evalute & treat vital organ system(s) failure or risk of failure.
--- NOTE | 2016-09-05 12:46 | PN ---
Teaching Attending Note Name of Resident: Alan Glover ATTENDING PHYSICIAN STATEMENT I saw and evaluated the patient. I reviewed the resident's note and discussed the case with the resident. I agree with the resident's findings and plan as documented. SUBJECTIVE: Pt seen and examined in the ICU. Remains intubated, sedated. Vented on volume assist control. No fevers recorded. OBJECTIVE: Last Vital Signs Temp Pulse Resp BP Pulse Ox 97.6 F 76 16 116/64 99 09/05/16 02:00 09/05/16 10:15 09/05/16 10:03 09/05/16 10:00 09/05/16 11:07 Intake & Output 09/02/16 09/03/16 09/04/16 09/05/16 23:59 23:59 23:59 23:59 Intake Total 2338.3 4282.0 1994.8 240 Output Total 1000 1100 1450 945 Balance 1338.3 3182.0 544.8 -705 Weight 199 lb 206 lb 211 lb 8 oz 213 lb 2.992 oz Gen: intubated, sedated Heart: RRR Lung: distant breath sounds Abd: soft, nontender Ext: less edema Chest tubes: serous drainage, no air leak CBC, BMP 09/05/16 05:45 09/05/16 05:45 Active Medications Acetylcysteine (Mucomyst 20 Oral / Inh Use Only*) 600 mg NEB QIDR [facility] Last Admin: 09/05/16 11:10 Dose: 600 mg Albuterol Sulfate (Ventolin 0.083% Nebulizer Soln -) 1 amp NEB QIDR [facility] Last Admin: 09/05/16 11:10 Dose: 1 amp Amiodarone HCl (Cordarone -) 200 mg PO DAILY [facility] Last Admin: 09/05/16 09:28 Dose: 200 mg Atorvastatin Calcium (Lipitor -) 20 mg PO HS [facility] Last Admin: 09/04/16 21:42 Dose: 20 mg Bupropion HCl (Wellbutrin Xl -) 150 mg PO DAILY [facility] Last Admin: 09/05/16 09:28 Dose: 150 mg Docusate Sodium (Colace Liquid -) 100 mg PO TID [facility] Last Admin: 09/05/16 06:56 Dose: Not Given Duloxetine HCl (Cymbalta -) 60 mg PO DAILY [facility] Last Admin: 09/05/16 09:28 Dose: 60 mg Epoetin Keith (Procrit -) 10,000 unit IVPUSH MoWeFr@10 [facility] Last Admin: 09/04/16 13:07 Dose: 10,000 unit Heparin Sodium (Porcine) (Heparin -) 1,000 unit IVPUSH PRN PRN PRN Reason: Heparin Last Admin: 09/02/16 10:06 Dose: 1,000 unit Heparin Sodium (Porcine) (Heparin -) 5,000 unit IVPUSH PRN PRN PRN Reason: Heparin Ertapenem 1 gm/ Sodium (Chloride) 50 mls @ 100 mls/hr IVPB DAILY [facility] PRN Reason: Protocol Last Admin: 09/05/16 09:26 Dose: 100 mls/hr Pantoprazole Sodium (Protonix 40mg Ivpb (Pre-Docked)) 100 mls @ 200 mls/hr IVPB DAILY [facility] Last Admin: 09/05/16 09:27 Dose: 200 mls/hr Propofol (Diprivan -) 100 mls @ 2.696 mls/hr IVPB TITR [facility]; 5 MCG/KG/MIN PRN Reason: Protocol Last Titration: 09/05/16 10:15 Dose: 0 mcg/kg/min Phenylephrine HCl 20,000 mcg/ (Sodium Chloride) 250 mls @ 75 mls/hr IVPB ASDIR [facility]; 100 MCG/MIN PRN Reason: Protocol Last Admin: 09/04/16 15:50 Dose: Not Given Insulin Aspart (Novolog Vial Sliding Scale -) 1 vial SQ ACHS [facility] PRN Reason: Protocol Last Admin: 09/05/16 11:31 Dose: Not Given Methylprednisolone Sodium Succinate (Solu-Medrol -) 40 mg IVPB BID [facility] Last Admin: 09/05/16 09:28 Dose: 40 mg Metoprolol Tartrate (Lopressor -) 25 mg PO BID [facility] Last Admin: 09/05/16 09:28 Dose: 25 mg Nystatin (Nystop Powder -) 1 applic TP DAILY [facility] Last Admin: 09/05/16 09:29 Dose: 1 applic Polyethylene Glycol (Miralax (For Daily Use) -) 17 gm PO DAILY [facility] Last Admin: 09/05/16 09:28 Dose: 17 gm Sodium Chloride ([place] Nasal [place] -) 2 spray NS Q12H PRN PRN Reason: NASAL CONGESTION Tamsulosin HCl (Flomax -) 0.4 mg PO DAILY@0830 [facility] Last Admin: 09/05/16 09:27 Dose: 0.4 mg ASSESSMENT AND PLAN: Acute on Chronic Hypoxic Respiratory Failure Likely Aspiration Pneumonia vs Pneumonitis LV Diastolic Dysfunction Atrial Fibrillation Pleural Effusions COPD h/o DVT/PE CAD HTN Hyperlipidemia - continue antibiotics - monitor pigtail drainage - titrate Fio2 to keep SpO2 >90% - prednisone - inhaled bronchodilators - continue anticoagulation - monitor urine output, creatinine - lighten sedation to assess mental status - spontaneous breathing trials as tolerated - enteral feeds - continue ICU monitoring critical care time spent in reviewing chart, evaluating patient and formulating plan 35 min
--- NOTE | 2016-09-05 14:28 | PN ---
Progress Note, Physician History of Present Illness: intubated sedated patient does respond to the name calling tries to open eyes - Current Medication List Current Medications: Active Medications Acetylcysteine (Mucomyst 20 Oral / Inh Use Only*) 600 mg NEB QIDR [facility] Last Admin: 09/05/16 11:10 Dose: 600 mg Albuterol Sulfate (Ventolin 0.083% Nebulizer Soln -) 1 amp NEB QIDR [facility] Last Admin: 09/05/16 11:10 Dose: 1 amp Amiodarone HCl (Cordarone -) 200 mg PO DAILY [facility] Last Admin: 09/05/16 09:28 Dose: 200 mg Atorvastatin Calcium (Lipitor -) 20 mg PO HS [facility] Last Admin: 09/04/16 21:42 Dose: 20 mg Bupropion HCl (Wellbutrin Xl -) 150 mg PO DAILY [facility] Last Admin: 09/05/16 09:28 Dose: 150 mg Docusate Sodium (Colace Liquid -) 100 mg PO TID [facility] Last Admin: 09/05/16 13:29 Dose: Not Given Duloxetine HCl (Cymbalta -) 60 mg PO DAILY [facility] Last Admin: 09/05/16 09:28 Dose: 60 mg Epoetin Keith (Procrit -) 10,000 unit IVPUSH MoWeFr@10 [facility] Last Admin: 09/04/16 13:07 Dose: 10,000 unit Heparin Sodium (Porcine) (Heparin -) 1,000 unit IVPUSH PRN PRN PRN Reason: Heparin Last Admin: 09/02/16 10:06 Dose: 1,000 unit Heparin Sodium (Porcine) (Heparin -) 5,000 unit IVPUSH PRN PRN PRN Reason: Heparin Ertapenem 1 gm/ Sodium (Chloride) 50 mls @ 100 mls/hr IVPB DAILY [facility] PRN Reason: Protocol Last Admin: 09/05/16 09:26 Dose: 100 mls/hr Pantoprazole Sodium (Protonix 40mg Ivpb (Pre-Docked)) 100 mls @ 200 mls/hr IVPB DAILY [facility] Last Admin: 09/05/16 09:27 Dose: 200 mls/hr Propofol (Diprivan -) 100 mls @ 2.696 mls/hr IVPB TITR [facility]; 5 MCG/KG/MIN PRN Reason: Protocol Last Admin: 09/05/16 14:27 Dose: 13.479 mls/hr Phenylephrine HCl 20,000 mcg/ (Sodium Chloride) 250 mls @ 75 mls/hr IVPB ASDIR [facility]E; 100 MCG/MIN PRN Reason: Protocol Last Admin: 09/04/16 15:50 Dose: Not Given Insulin Aspart (Novolog Vial Sliding Scale -) 1 vial SQ ACHS [facility] PRN Reason: Protocol Last Admin: 09/05/16 11:31 Dose: Not Given Methylprednisolone Sodium Succinate (Solu-Medrol -) 40 mg IVPB BID [facility] Last Admin: 09/05/16 09:28 Dose: 40 mg Metoprolol Tartrate (Lopressor -) 25 mg PO BID [facility] Last Admin: 09/05/16 09:28 Dose: 25 mg Nystatin (Nystop Powder -) 1 applic TP DAILY [facility] Last Admin: 09/05/16 09:29 Dose: 1 applic Polyethylene Glycol (Miralax (For Daily Use) -) 17 gm PO DAILY [facility] Last Admin: 09/05/16 09:28 Dose: 17 gm Sodium Chloride ([place] Nasal [place] -) 2 spray NS Q12H PRN PRN Reason: NASAL CONGESTION Tamsulosin HCl (Flomax -) 0.4 mg PO DAILY@0830 [facility] Last Admin: 09/05/16 09:27 Dose: 0.4 mg - Objective Vital Signs: Vital Signs Temperature 97.5 F L 09/05/16 10:00 Pulse Rate 71 09/05/16 14:00 Respiratory Rate 26 H 09/05/16 14:00 Blood Pressure 125/56 09/05/16 14:00 O2 Sat by Pulse Oximetry (%) 99 09/05/16 11:07 Constitutional: Yes: Other Cardiovascular: Yes: S1, S2 Respiratory: Yes: Intubated, Mechanically Ventilated, Poor Air Entry, Other ( bilateral pig tail tubes) Gastrointestinal: Yes: Normal Bowel Sounds, Soft Musculoskeletal: Yes: Other Extremities: Yes: Other Neurological: Yes: Other (responds to name) Psychiatric: Yes: Other Labs: CBC, BMP 09/05/16 05:45 09/05/16 05:45 INR, PTT INR 1.22 (0.82-1.09) H 08/27/16 06:00 Assessment/Plan - Problems (1) Acute and chronic respiratory failure with hypoxia Code(s): J96.21 - ACUTE AND CHRONIC RESPIRATORY FAILURE WITH HYPOXIA (2) Pneumonia Code(s): J18.9 - PNEUMONIA, UNSPECIFIED ORGANISM Qualifiers: Pneumonia type: due to unspecified organism Laterality: left Lung location: lower lobe of lung Qualified Code(s): J18.1 - Lobar pneumonia, unspecified organism (3) Pleural effusion Code(s): J90 - PLEURAL EFFUSION, NOT ELSEWHERE CLASSIFIED (4) Acute on chronic diastolic (congestive) heart failure Code(s): I50.33 - ACUTE ON CHRONIC DIASTOLIC (CONGESTIVE) HEART FAILURE (5) COPD (chronic obstructive pulmonary disease) Code(s): J44.9 - CHRONIC OBSTRUCTIVE PULMONARY DISEASE, UNSPECIFIED (6) Renal failure (ARF), acute on chronic Code(s): N17.9 - ACUTE KIDNEY FAILURE, UNSPECIFIED N18.9 - CHRONIC KIDNEY DISEASE, UNSPECIFIED (7) Diabetes Code(s): E11.9 - TYPE 2 DIABETES MELLITUS WITHOUT COMPLICATIONS Qualifiers: Diabetes mellitus type: type 2 Diabetes mellitus complication status: with kidney complications Diabetes mellitus complication detail: with chronic kidney disease (8) Atrial fibrillation Code(s): I48.91 - UNSPECIFIED ATRIAL FIBRILLATION 9 bilateral cellulitis of the legs plan continue to monitor most of the cx reports negative plan is to try to send her to ltac still draiang a lot from the chest tubes rest as per icu cc time 40 min
[2016-09-05] MEDS ORDERED: PNEUMOC 13-VAL CONJ-DIP CRM/PF 0.5 ML DISP.SYRIN IM ONE ×2 (15:34→17:00)
[2016-09-05] MEDS: ATORVASTATIN CA 20 MG TABLET (FP) PO SCH (21:32)
[2016-09-05] MEDS: CHLORHEXIDINE GLUCONATE 0.12% 15ML CUP MM SCH (23:16)
[2016-09-06] MEDS: ALBUTEROL SO4 0.083% IH SOL 2.5 MG/3 ML VIAL.NEB. NEB SCH ×4 (05:41→17:30)
[2016-09-06] MEDS: ACETYLCYSTEINE 20% 200MG/ML 4 ML VIAL *FOR ORAL / INH USE ONLY NEB SCH ×3 (05:41→11:20)
[2016-09-06] MEDS: INSULIN SLIDING SCALE (NOVOLOG) 1 VIAL SQ SCH ×3 (06:00→17:12)
[2016-09-06 07:09] LABS: MCH 28.5 pg (25.7-33.7); MCHC 33.2 g/dl (32.0-35.9); MEAN CELL VOLUME 85.8 fl (80-96); PLATELET COUNT 163 K/MM3 (134-434); RDW 17.4 % (11.9-15.9); WHITE BLOOD COUNT 9.2 K/mm3 (4.0-10.0)
[2016-09-06 07:33] LABS: CALCIUM 7.3 mg/dL (8.5-10.1); COCKROFT - GAULT 40.98; CREATININE 2.1 mg/dL (0.7-1.3)
[2016-09-06] MEDS: DOCUSATE NA 100 MG/10 ML UNIT-DOSE CUPS PO SCH ×2 (07:42→13:46)
[2016-09-06 07:51] LABS: ARTERIAL BLD GAS O2 SATURATION 97.7 % (90-98.9); ARTERIAL BLOOD GAS HCO3 28.8 meq/L (22-26); ARTERIAL BLOOD GAS PO2 98.8 mmHg (70-100); ARTERIAL BLOOD GAS pH 7.36 (7.35-7.45)
[2016-09-06 07:53] LABS: ALLENS TEST POSITIVE
[2016-09-06 07:54] LABS: ART PUNCT SITE RIGHT RADIAL; LPM/O2% 45%; MECH. VENT. YES; PT. ON O2? YES; TYPE OF O2 MECH VENT; VENT RATE 16; VT/PRESS 500
--- NOTE | 2016-09-06 08:35 | PN ---
Progress Note, Physician Chief Complaint: intubated on propofol Bilateral chest tubes TELE: NSR, reviewed. CXR reviewed, improved. - Current Medication List Current Medications: Active Medications Acetylcysteine (Mucomyst 20 Oral / Inh Use Only*) 600 mg NEB QIDR [facility] Last Admin: 09/06/16 05:41 Dose: 600 mg Albuterol Sulfate (Ventolin 0.083% Nebulizer Soln -) 1 amp NEB QIDR [facility] Last Admin: 09/06/16 05:41 Dose: 1 amp Amiodarone HCl (Cordarone -) 200 mg PO DAILY [facility] Last Admin: 09/05/16 09:28 Dose: 200 mg Atorvastatin Calcium (Lipitor -) 20 mg PO HS [facility] Last Admin: 09/05/16 21:32 Dose: 20 mg Bupropion HCl (Wellbutrin Xl -) 150 mg PO DAILY [facility] Last Admin: 09/05/16 09:28 Dose: 150 mg Chlorhexidine Gluconate (Peridex -) 15 ml MM BID [facility] Last Admin: 09/05/16 23:16 Dose: 15 ml Docusate Sodium (Colace Liquid -) 100 mg PO TID [facility] Last Admin: 09/06/16 07:42 Dose: Not Given Duloxetine HCl (Cymbalta -) 60 mg PO DAILY [facility] Last Admin: 09/05/16 09:28 Dose: 60 mg Epoetin Keith (Procrit -) 10,000 unit IVPUSH MoWeFr@10 [facility] Last Admin: 09/04/16 13:07 Dose: 10,000 unit Heparin Sodium (Porcine) (Heparin -) 1,000 unit IVPUSH PRN PRN PRN Reason: Heparin Last Admin: 09/02/16 10:06 Dose: 1,000 unit Heparin Sodium (Porcine) (Heparin -) 5,000 unit IVPUSH PRN PRN PRN Reason: Heparin Ertapenem 1 gm/ Sodium (Chloride) 50 mls @ 100 mls/hr IVPB DAILY [facility] PRN Reason: Protocol Last Admin: 09/05/16 09:26 Dose: 100 mls/hr Pantoprazole Sodium (Protonix 40mg Ivpb (Pre-Docked)) 100 mls @ 200 mls/hr IVPB DAILY [facility] Last Admin: 09/05/16 09:27 Dose: 200 mls/hr Propofol (Diprivan -) 100 mls @ 2.696 mls/hr IVPB TITR [facility]; 5 MCG/KG/MIN PRN Reason: Protocol Last Admin: 09/05/16 21:33 Dose: 13.479 mls/hr Insulin Aspart (Novolog Vial Sliding Scale -) 1 vial SQ ACHS [facility] PRN Reason: Protocol Last Admin: 09/05/16 23:16 Dose: 3 units Methylprednisolone Sodium Succinate (Solu-Medrol -) 40 mg IVPB BID [facility] Last Admin: 09/05/16 21:33 Dose: 40 mg Metoprolol Tartrate (Lopressor -) 25 mg PO BID [facility] Last Admin: 09/05/16 21:32 Dose: 25 mg Nystatin (Nystop Powder -) 1 applic TP DAILY [facility] Last Admin: 09/05/16 09:29 Dose: 1 applic Polyethylene Glycol (Miralax (For Daily Use) -) 17 gm PO DAILY [facility] Last Admin: 09/05/16 09:28 Dose: 17 gm Sodium Chloride ([place] Nasal [place] -) 2 spray NS Q12H PRN PRN Reason: NASAL CONGESTION Tamsulosin HCl (Flomax -) 0.4 mg PO DAILY@0830 [facility] Last Admin: 09/05/16 09:27 Dose: 0.4 mg - Objective Vital Signs: Vital Signs Temperature 98.9 F 09/06/16 06:00 Pulse Rate 86 09/06/16 06:00 Respiratory Rate 18 09/06/16 06:46 Blood Pressure 129/60 09/06/16 06:00 O2 Sat by Pulse Oximetry (%) 100 09/05/16 21:59 HENT: Yes: Other (+ ETT) Cardiovascular: Yes: Regular Rate and Rhythm Respiratory: Yes: Other (= breath sounds bilaterally. No wheezing.) Gastrointestinal: Yes: Soft, Abdomen, Obese Edema: No Neurological: Yes: Other (sedated on propofol) Labs: CBC, BMP 09/06/16 06:16 09/06/16 06:16 INR, PTT INR 1.22 (0.82-1.09) H 08/27/16 06:00 Laboratory Tests 09/03/16 09/05/16 09/05/16 05:45 05:45 05:45 WBC 11.2 H Hgb 7.8 L Plt Count 182 PTT (Actin FS) 64.2 H ABG pH ABG pCO2 at Pt Temp ABG pO2 at Pt Temp O2 Delivery Device Oxygen Flow Rate Vent Mode Sodium 139 Potassium 4.3 BUN 89 H Creatinine 2.4 H 09/05/16 09/06/16 09/06/16 07:10 06:16 06:16 WBC 9.2 Hgb 7.9 L Plt Count 163 PTT (Actin FS) 28.3 D ABG pH 7.37 ABG pCO2 at Pt Temp 47.7 H ABG pO2 at Pt Temp 149.0 H O2 Delivery Device Oxygen Flow Rate 45 Vent Mode A/c Sodium Potassium BUN Creatinine 09/06/16 09/06/16 06:16 07:25 WBC Hgb Plt Count PTT (Actin FS) ABG pH 7.36 ABG pCO2 at Pt Temp 53.0 H ABG pO2 at Pt Temp 98.8 D O2 Delivery Device Mech vent Oxygen Flow Rate 45% Vent Mode Sodium 142 Potassium 5.3 H D BUN Creatinine 2.1 H - ....Imaging Chest X-ray: Image Reviewed EKG: Image Reviewed Assessment/Plan IMP: Acute on chronic exacerbation COPD, Right lower lobe PNA, probable left sided mucous plug and acute on chronic hypoxemic and hypercarbic respiratory failure Acute on chronic renal failure Anemia CAD s/p PCI History of DVT REC: 1. PNA, chronic COPD, mucous plugging superimposed chronic diastolic CHF: -remains intubated. -Abx as per ID - s/p b/l pigtail catheters 2. ARF: -As per renal -Avoid nephrotoxins (no PIPER/ARB) -Lasix PRN 3. Anemia: -guaiac + -Follow H/H -For now bridging w/ heparin gtts 4. CAD s/p PCI: -ASA on hold due to anemia and guaiac + stool 5. History DVT: -On heparin gtts 6. PAF w/RVR: -started on amio over weekend, also required supplimental doses od digoxin for rate control in setting AF w/ RVR and hypotension -would try to d/c amio and continue with metoprolol in light of chronic lung disease -Short term use is ok, would try to d/c amio this week
--- NOTE | 2016-09-06 08:36 | PN ---
Physical Exam: SUBJECTIVE: Patient seen and examined at bedside this AM in ICU. Intubated & sedated. Minimal output from bilateral pigtail catheters overnight. BP & HR stable & at normal baseline levels. Dark tarry stool noted in patient's rectal tube bag. Afebrile overnight. OBJECTIVE: Vital Signs Period Temp Pulse Resp BP Sys/[place] Pulse Ox Last 24 Hr 97.5 F-98.9 F 61-86 16-28 108-131/50-65 99-100 GENERAL: Intubated & sedated. Resting comfortably in bed. HEENT: Atraumatic, EOMI, PERRLA, No lymphadenopathy noted, dry tongue/lips LUNGS: Mildly diminished breath sounds bilateral lung rey (right>left). No wheezes or accessory muscle use noted. HEART: Regular rate and rhythm, normal S1 and S2 with systolic murmur, rub or gallop. ABDOMEN: Soft, obese, nontender, not distended, normoactive bowel sounds, no guarding, no rebound EXTREMITIES: 2+ pulses, warm, well-perfused. No calf tenderness. +1 bilateral edema lower extremities NEUROLOGICAL: Cranial nerves II-XII intact. Speech & gait deferred. PSYCHIATRIC: intubated & sedated, unable to assess. SKIN: Bilateral lower ext with skin discoloration with dark yellow patches and venous stasis. Laboratory Results - last 24 hr 09/05/16 09/05/16 09/05/16 11:22 16:27 23:10 WBC RBC Hgb Hct MCV MCHC RDW Plt Count MPV PTT (Actin FS) Puncture Site ABG pH ABG pCO2 at Pt Temp ABG pO2 at Pt Temp ABG HCO3 ABG O2 Sat (Measured) ABG O2 Content ABG Base Excess Issac Test O2 Delivery Device Oxygen Flow Rate Vent Mode Vent Rate Mechanical Rate PEEP Pressure Support Vent Sodium Potassium Chloride Carbon Dioxide Anion Gap BUN Creatinine POC Glucometer 142.81583 176.87160 173.88503 Random Glucose Calcium 09/06/16 09/06/16 09/06/16 06:14 06:16 06:16 WBC 9.2 RBC 2.78 L Hgb 7.9 L Hct 23.9 L MCV 85.8 MCHC 33.2 RDW 17.4 H Plt Count 163 MPV 8.0 PTT (Actin FS) 28.3 D Puncture Site ABG pH ABG pCO2 at Pt Temp ABG pO2 at Pt Temp ABG HCO3 ABG O2 Sat (Measured) ABG O2 Content ABG Base Excess Issac Test O2 Delivery Device Oxygen Flow Rate Vent Mode Vent Rate Mechanical Rate PEEP Pressure Support Vent Sodium Potassium Chloride Carbon Dioxide Anion Gap BUN Creatinine POC Glucometer 235.36835 Random Glucose Calcium 09/06/16 09/06/16 06:16 07:25 WBC RBC Hgb Hct MCV MCHC RDW Plt Count MPV PTT (Actin FS) Puncture Site Right radial ABG pH 7.36 ABG pCO2 at Pt Temp 53.0 H ABG pO2 at Pt Temp 98.8 D ABG HCO3 28.8 H ABG O2 Sat (Measured) 97.7 ABG O2 Content 14.8 L ABG Base Excess 3.0 H Issac Test Positive O2 Delivery Device Mech vent Oxygen Flow Rate 45% Vent Mode Ac Vent Rate 16 Mechanical Rate Yes PEEP 5.0 Pressure Support Vent 500 Sodium 142 Potassium 5.3 H D Chloride 101 Carbon Dioxide 29 Anion Gap 12 BUN 94 H Creatinine 2.1 H POC Glucometer Random Glucose 193 H Calcium 7.3 L Active Medications Generic Name Dose Route Start Last Admin Trade Name Freq PRN Reason Stop Dose Admin Albuterol Sulfate 1 amp 08/28/16 18:00 09/06/16 05:41 Ventolin 0.083% Nebulizer Soln - NEB 1 amp QIDR [facility]E Administration Amiodarone HCl 200 mg 09/04/16 10:00 09/06/16 10:06 Cordarone - PO 200 mg DAILY [facility] Administration Atorvastatin Calcium 20 mg 08/28/16 22:00 09/05/16 21:32 Lipitor - PO 20 mg HS [facility]E Administration Bupropion HCl 150 mg 08/29/16 10:00 09/05/16 09:28 Wellbutrin Xl - PO 150 mg DAILY [facility] Administration Chlorhexidine Gluconate 15 ml 09/05/16 22:00 09/06/16 10:05 Peridex - MM 15 ml BID [facility] Administration Docusate Sodium 100 mg 09/03/16 06:00 09/06/16 07:42 Colace Liquid - PO Not Given TID [facility]E Duloxetine HCl 60 mg 08/29/16 10:00 09/06/16 10:06 Cymbalta - PO 60 mg DAILY [facility] Administration Epoetin Keith 10,000 unit 08/30/16 10:00 09/04/16 13:07 Procrit - IVPUSH 10,000 unit MoWeFr@10 [facility] Administration Heparin Sodium (Porcine) 1,000 unit 08/28/16 14:22 09/02/16 10:06 Heparin - IVPUSH 1,000 unit PRN PRN Administration Heparin Heparin Sodium (Porcine) 5,000 unit 08/28/16 14:22 Heparin - IVPUSH PRN PRN Heparin Pantoprazole Sodium 100 mls @ 200 mls/hr 08/31/16 12:00 09/06/16 10:10 Protonix 40mg Ivpb (Pre-Docked) IVPB 200 mls/hr DAILY [facility] Administration Propofol 100 mls @ 2.696 mls/hr 09/01/16 09:45 09/06/16 10:57 Diprivan - IVPB Not Given TITR [facility] Protocol 5 MCG/KG/MIN Insulin Aspart 1 vial 08/28/16 16:30 09/05/16 23:16 Novolog Vial Sliding Scale - SQ 3 units ACHS [facility] Administration Protocol Metoprolol Tartrate 25 mg 08/28/16 22:00 09/06/16 10:06 Lopressor - PO 25 mg BID [facility] Administration Nystatin 1 applic 08/29/16 10:00 09/06/16 10:06 Nystop Powder - TP 1 applic DAILY [facility] Administration Polyethylene Glycol 17 gm 08/29/16 10:00 09/06/16 10:06 Miralax (For Daily Use) - PO Not Given DAILY [facility] Prednisone 40 mg 09/06/16 22:00 Deltasone - PO BID [facility] Sodium Chloride 2 spray 08/28/16 14:22 [place] Nasal [place] - NS Q12H PRN NASAL CONGESTION Tamsulosin HCl 0.4 mg 08/29/16 08:30 09/06/16 09:30 Flomax - PO 0.4 mg DAILY@0830 [facility] Administration ASSESSMENT/PLAN: 75 year old male with PMH of HTN, HLD, CAD s/p stents x2 in 2014, diastolic CHF , AFIB, COPD, DVT and PE presented to ED last night from [place] for SOB & poor PO intake since being discharged from [facility] on 08/21/2016 for similar presentation. Found to be in ARF with right pleural effusion (larger than on discharge). #Acute Respiratory Failure, multifactorial etiology (aspiration pneumonia, superimposed on COPD exacerbation & chronic diastolic CHF) -Intubated & sedated on propofol with good oxygen saturation -Prednisone 40mg BID -Duk[place]ha QIDR -CXR reviewed #Anemia, (+) stool guiac -H/H stable s/p 1unit PRBC on 09/03 (has received 2 total units PRBC this admission) -EPO, Feosol being given as well -patient refused GI workup (colonoscopy/endoscopy) #KARLOS, improving (likely d/t poor PO intake & periods of relative hypotension during hospital stay) -Free water via NG tube for hydration -continue home meds: Flomax 0.4mg PO DAILY (hx of urinary retention with chronic lilly catheter) -will monitor & trend kidney function -avoid nephrotoxic meds #HTN/HTL/A-Fib history -currently on: Lopressor 25mg PO BID, Lipitor 20mg PO HS, Amiodarone 200mg PO DAILY -need to discuss benefits & risks of full AC in setting of recurrent GI Bleeds with patient before starting Aspirin/Eliquis #Constipation -continue regimen: Colace, Miralax, Senna #Anxiety Hx -continue home meds: Wellbutrin 150mg PO DAILY, Cymbalta 60mg PO DAILY #DM -ISS -BGM Prophylaxis/FEN -Heparin -PPI -monitor electrolytes -Tube feed w/ free water Dispo: Patient states he wants FULL CODE status. Accepted for LTAC (pending transfer). Visit type - Emergency Visit Emergency Visit: Yes ED Registration Date: 08/23/16 Care time: The patient presented to the Emergency Department on the above date and was hospitalized for further evaluation of their emergent condition. - New Patient This patient is new to me today: No - Critical Care Critical Care patient: Yes Total Critical Care Time (in minutes): 50 Critical Care Statement: The care of this patient involved high complexity decision making to prevent further life threatening deterioration of the patient 's condition and/or to evalute & treat vital organ system(s) failure or risk of failure.
[2016-09-06] MEDS ORDERED: PT OWN MED DRAWER 7, Y5N ONE ×3 (08:44→13:42)
[2016-09-06] MEDS: TAMSULOSIN HCL 0.4 MG CAP.ER.24H (FP) PO SCH (09:30)
[2016-09-06] MEDS: ERTAPENEM SODIUM 1 GM in SODIUM CHLORIDE 50 ML IVPB SCH (10:04)
[2016-09-06] MEDS: CHLORHEXIDINE GLUCONATE 0.12% 15ML CUP MM SCH (10:05)
[2016-09-06] MEDS: methylPREDNISolone NA SUCC 40 MG/1 ML VIAL IVPB SCH (10:05)
[2016-09-06] MEDS: NYSTATIN POWDER 100,000 UNITS/GM - 15 GM TOPICAL POWDER TP SCH (10:06)
[2016-09-06] MEDS: AMIODARONE HCL 200 MG TABLET (FP) PO SCH (10:06)
[2016-09-06] MEDS: DULoxetine HCL 30 MG CAPSULE.DR (FP) PO SCH (10:06)
[2016-09-06] MEDS: POLYETHYLENE GLYCOL 3350 119 GM BTL PO SCH (10:06)
[2016-09-06] MEDS: METOPROLOL TARTRATE 25 MG TABLET (FP) PO SCH (10:06)
[2016-09-06] MEDS: PANTOPRAZOLE SODIUM 100 ML IVPB SCH (10:10)
[2016-09-06] MEDS: PROPOFOL 100 ML IVPB SCH (10:57)
[2016-09-06] MEDS: EPOETIN ALFA 10,000 UNIT/1 ML VIAL IVPUSH SCH (11:49)
--- NOTE | 2016-09-06 13:13 | PN ---
Progress Note (short form) - Note Progress Note: Renal Follow up for KARLOS/CKD Pt seen and examined in the ICU off sedation on vent no overnight events good urine output Vital Signs Temperature 98.6 F 09/06/16 10:00 Pulse Rate 106 H 09/06/16 12:00 Respiratory Rate 29 H 09/06/16 12:20 Blood Pressure 124/51 09/06/16 12:00 O2 Sat by Pulse Oximetry (%) 100 09/06/16 10:00 Intake & Output 09/03/16 09/04/16 09/05/16 09/06/16 23:59 23:59 23:59 23:59 Intake Total 4282.0 1994.8 1330 1612 Output Total 1100 1450 2300 710 Balance 3182.0 544.8 -970 902 Weight 206 lb 211 lb 8 oz 213 lb 2.992 oz 203 lb 14.4 oz Gen: NAD intuabted CVS: RRR, No M/R Lungs: Course BS, no wheeze, no rales, B/L chest tubes Abd: soft, obese, NT/ND Ext: 1+ LE edema CBC, BMP 09/06/16 06:16 09/06/16 06:16 Laboratory Tests 09/06/16 06:16 Calcium 7.3 L Current Medications Albuterol Sulfate (Ventolin 0.083% Nebulizer Soln -) 1 amp NEB QIDR [facility] Last Admin: 09/06/16 11:20 Dose: 1 amp Amiodarone HCl (Cordarone -) 200 mg PO DAILY [facility] Last Admin: 09/06/16 10:06 Dose: 200 mg Atorvastatin Calcium (Lipitor -) 20 mg PO HS [facility] Last Admin: 09/05/16 21:32 Dose: 20 mg Bupropion HCl (Wellbutrin Xl -) 150 mg PO DAILY [facility] Last Admin: 09/05/16 09:28 Dose: 150 mg Chlorhexidine Gluconate (Peridex -) 15 ml MM BID [facility] Last Admin: 09/06/16 10:05 Dose: 15 ml Docusate Sodium (Colace Liquid -) 100 mg PO TID [facility] Last Admin: 09/06/16 07:42 Dose: Not Given Duloxetine HCl (Cymbalta -) 60 mg PO DAILY [facility] Last Admin: 09/06/16 10:06 Dose: 60 mg Epoetin Keith (Procrit -) 10,000 unit IVPUSH MoWeFr@10 [facility] Last Admin: 09/06/16 11:49 Dose: 10,000 unit Heparin Sodium (Porcine) (Heparin -) 1,000 unit IVPUSH PRN PRN PRN Reason: Heparin Last Admin: 09/02/16 10:06 Dose: 1,000 unit Heparin Sodium (Porcine) (Heparin -) 5,000 unit IVPUSH PRN PRN PRN Reason: Heparin Pantoprazole Sodium (Protonix 40mg Ivpb (Pre-Docked)) 100 mls @ 200 mls/hr IVPB DAILY [facility] Last Admin: 09/06/16 10:10 Dose: 200 mls/hr Propofol (Diprivan -) 100 mls @ 2.696 mls/hr IVPB TITR [facility]E; 5 MCG/KG/MIN PRN Reason: Protocol Last Admin: 09/06/16 10:57 Dose: Not Given Insulin Aspart (Novolog Vial Sliding Scale -) 1 vial SQ ACHS [facility] PRN Reason: Protocol Last Admin: 09/06/16 11:52 Dose: Not Given Metoprolol Tartrate (Lopressor -) 25 mg PO BID [facility] Last Admin: 09/06/16 10:06 Dose: 25 mg Nystatin (Nystop Powder -) 1 applic TP DAILY [facility] Last Admin: 09/06/16 10:06 Dose: 1 applic Polyethylene Glycol (Miralax (For Daily Use) -) 17 gm PO DAILY [facility] Last Admin: 09/06/16 10:06 Dose: Not Given Prednisone (Deltasone -) 40 mg PO BID [facility] Sodium Chloride ([place] Nasal [place] -) 2 spray NS Q12H PRN PRN Reason: NASAL CONGESTION Tamsulosin HCl (Flomax -) 0.4 mg PO DAILY@0830 [facility] Last Admin: 09/06/16 09:30 Dose: 0.4 mg A/P 75 year old Gentleman with PMhx of CKD (Hx of KARLOS requiring dialysis), Hypertension, COPD on O2, BPH, Gout, CAD, Diastolic CHF who presented from Rehab with acute Resp Failure and found to have KARLOS on CKD. #Acute on Chronic Renal Failure with suspected ATN Cr continuing to improve supportive care, keep MAP> 65 high BUN due in part to steroids no indication for MECHANICAL MANAGER Trend BUN/Cr and Urine output #Hypernatremia on oral water via NGT Na is now WNL #Resp Failure on BIPAP/Pleural effusion now intubated management as per ICU #Anemia continue epogen s/p transfusion #Shock/Cardiogenic with Rapid afib +/- Sepsis Care as per ICU #Mild Hyperkalemia Trend for now may need to change feeds to low K Melvin Johnson DO
--- NOTE | 2016-09-06 13:21 | PN ---
Progress Note (short form) - Note Progress Note: Subjective: The patient was seen and examined in the ICU intubated, sedated. Awaiting final decision from for trach Current Medications Generic Name Dose Route Start Last Admin Trade Name Freq PRN Reason Stop Dose Admin Acetylcysteine 600 mg 08/28/16 18:00 09/05/16 06:35 Mucomyst 20 Oral / Inh Use Only* NEB 600 mg QIDR LESLEE Administration Albuterol Sulfate 1 amp 08/28/16 18:00 09/05/16 06:35 Ventolin 0.083% Nebulizer Soln - NEB 1 amp QIDR LESLEE Administration Amiodarone HCl 200 mg 09/04/16 10:00 09/05/16 09:28 Cordarone - PO 200 mg DAILY LESLEE Administration Atorvastatin Calcium 20 mg 08/28/16 22:00 09/04/16 21:42 Lipitor - PO 20 mg HS LESLEE Administration Bupropion HCl 150 mg 08/29/16 10:00 09/05/16 09:28 Wellbutrin Xl - PO 150 mg DAILY LESLEE Administration Docusate Sodium 100 mg 09/03/16 06:00 09/05/16 06:56 Colace Liquid - PO Not Given TID LESLEE Duloxetine HCl 60 mg 08/29/16 10:00 09/05/16 09:28 Cymbalta - PO 60 mg DAILY LESLEE Administration Epoetin Keith 10,000 unit 08/30/16 10:00 09/04/16 13:07 Procrit - IVPUSH 10,000 unit MoWeFr@10 LESLEE Administration Heparin Sodium (Porcine) 1,000 unit 08/28/16 14:22 09/02/16 10:06 Heparin - IVPUSH 1,000 unit PRN PRN Administration Heparin Heparin Sodium (Porcine) 5,000 unit 08/28/16 14:22 Heparin - IVPUSH PRN PRN Heparin Ertapenem 1 gm/ Sodium 50 mls @ 100 mls/hr 08/30/16 10:00 09/05/16 09:26 Chloride IVPB 100 mls/hr DAILY LESLEE Administration Protocol Pantoprazole Sodium 100 mls @ 200 mls/hr 08/31/16 12:00 09/05/16 09:27 Protonix 40mg Ivpb (Pre-Docked) IVPB 200 mls/hr DAILY LESLEE Administration Propofol 100 mls @ 2.696 mls/hr 09/01/16 09:45 09/04/16 13:06 Diprivan - IVPB 16.174 mls/hr TITR LESLEE Administration Protocol 5 MCG/KG/MIN Phenylephrine HCl 20,000 mcg/ 250 mls @ 75 mls/hr 09/02/16 15:15 09/04/16 15:50 Sodium Chloride IVPB Not Given ASDIR LESLEE Protocol 100 MCG/MIN Insulin Aspart 1 vial 08/28/16 16:30 09/05/16 06:57 Novolog Vial Sliding Scale - SQ 3 units ACHS LESLEE Administration Protocol Methylprednisolone Sodium Succinate 40 mg 09/01/16 22:00 09/05/16 09:28 Solu-Medrol - IVPB 40 mg BID LESLEE Administration Metoprolol Tartrate 25 mg 08/28/16 22:00 09/05/16 09:28 Lopressor - PO 25 mg BID LESLEE Administration Nystatin 1 applic 08/29/16 10:00 09/05/16 09:29 Nystop Powder - TP 1 applic DAILY LESLEE Administration Polyethylene Glycol 17 gm 08/29/16 10:00 09/05/16 09:28 Miralax (For Daily Use) - PO 17 gm DAILY LESLEE Administration Sodium Chloride 2 spray 08/28/16 14:22 [place] Nasal [place] - NS Q12H PRN NASAL CONGESTION Tamsulosin HCl 0.4 mg 08/29/16 08:30 09/05/16 09:27 Flomax - PO 0.4 mg DAILY@0830 LESLEE Administration Objective: Vital Signs Period Temp Pulse Resp BP Sys/[place] Pulse Ox Last 24 Hr 97.3 F-97.6 F 64-73 16-18 102-123/54-83 100-100 Physical Exam: General: NAD, A&Ox3 Lungs: B/l scattered rhonchi Heart: RRR, S1S2 Abd: Soft, non-tender, non-distended. Normoactive bowel sounds Ext: B/l upper/lower extremity edema. Chronic venous stasis changes CBCD WBC 9.2 K/mm3 (4.0-10.0) 09/06/16 06:16 RBC 2.78 M/mm3 (4.00-5.60) L 09/06/16 06:16 Hgb 7.9 GM/dL (11.7-16.9) L 09/06/16 06:16 Hct 23.9 % (35.4-49) L 09/06/16 06:16 MCV 85.8 fl (80-96) 09/06/16 06:16 MCHC 33.2 g/dl (32.0-35.9) 09/06/16 06:16 RDW 17.4 % (11.9-15.9) H 09/06/16 06:16 Plt Count 163 K/MM3 (134-434) 09/06/16 06:16 MPV 8.0 fl (7.5-11.1) 09/06/16 06:16 CMP Sodium 142 mmol/L (136-145) 09/06/16 06:16 Potassium 5.3 mmol/L (3.5-5.1) H D 09/06/16 06:16 Chloride 101 mmol/L (98-107) 09/06/16 06:16 Carbon Dioxide 29 mmol/L (21-32) 09/06/16 06:16 Anion Gap 12 (8-16) 09/06/16 06:16 BUN 94 mg/dL (7-18) H 09/06/16 06:16 Creatinine 2.1 mg/dL (0.7-1.3) H 09/06/16 06:16 Creat Clearance w eGFR 26.67 (>60) 09/05/16 05:45 Glucose Y 08/26/16 08:10 Random Glucose 193 mg/dL (74-106) H 09/06/16 06:16 Calcium 7.3 mg/dL (8.5-10.1) L 09/06/16 06:16 Total Bilirubin 0.4 mg/dL (0.2-1.0) D 09/05/16 05:45 AST 8 U/L (15-37) L D 09/05/16 05:45 ALT < 6 U/L (12-78) L 09/05/16 05:45 Alkaline Phosphatase 73 U/L (45-117) 09/05/16 05:45 Total Protein 4.2 g/dl (6.4-8.2) L 09/05/16 05:45 Albumin 1.5 g/dl (3.4-5.0) L 09/05/16 05:45 CARDIAC ENZYMES Creatine Kinase 9 IU/L (39-308) L 08/24/16 05:20 Troponin I < 0.02 ng/ml (0.00-0.05) 08/24/16 05:20 Microbiology 08/30/16 13:40 Pleural Fluid AFB Smear Concentration - Final 08/30/16 13:40 Pleural Fluid Mycobacterial Culture - Preliminary 08/30/16 13:40 Pleural Fluid Gram Stain - Final08/30/16 13:40 Pleural Fluid Body Fluid Culture - Final NO GROWTH OF AEROBIC ORGANISMS AFTER 48 HOURS INCUBATION 08/30/16 13:40 Pleural Fluid Anaerobic Culture - Final NO ANAEROBES WERE ISOLATED 08/30/16 13:40 Pleural Fluid ALANA Preparation - Preliminary 08/30/16 13:40 Pleural Fluid Fungal Culture - Preliminary 08/23/16 19:10 Blood - Peripheral Venous Blood Culture - Final NO GROWTH AFTER 5 DAYS INCUBATION 08/23/16 19:10 Blood - Peripheral Venous Blood Culture - Final NO GROWTH AFTER 5 DAYS INCUBATION 08/23/16 20:26 Urine - Urine Clean Catch Urine Culture - Final NO GROWTH OBTAINED 08/23/16 21:56 Urine For Antigen Detection Legionella Antigen - Final 08/23/16 21:56 Urine For Antigen Detection Streptococcus pneumoniae Antigen (M - Final Assessment: This is a 75 year old male with PMHx of HTN, hyperlipidemia, CAD s/ p stenting x2 (2014), diastolic heart failure, a.fib, COPD, respiratory failure requiring intubation (02/2016-04/2016), GI bleed, h/o DVT and PE, urinary retention with chronic lilly catheter who presented to the ED with shortness of breath and refusal to take any po medications. Plan: 3) Pulmonary: Acute on chronic hypoxic hypercapnic respiratory failure - Intubated on 09/02 - Continue Prednisone taper - Continue Duonebs - Continue Mucomyst - Completed course of Ertapenem for aspiration pneumonia - Appreciate pulmonary consult B/l pleural effusions R>L - S/p b/l pigtail catheter placement on 08/30 - Left with 330ml on 09/05 - Right side with 220ml on 09/05 2) GI: Acute blood loss anemia - S/p 2u PRBC 09/03, Hgb remains stable at 7.9 - Continue Protonix - Patient refused GI workup including EGD/colonoscopy prior to intubation - Appreciate GI consult 3) Cardiology: Chronic diastolic heart failure - Hold all diuretics as the patient appears intravascularly depleted - Hold ASA, given acute blood loss anemia DVT/PE - On Heparin gtt now Paroxysmal a.fib - Started on amiodarone this weekend - Per cardiology, try to d/c amio this week HTN - Controlled BP Hyperlipidemia 4) : KARLOS on CKD - Continue to monitor Cr - Avoid hypotension - Appreciate nephrology consult 5) F/E/N: - Monitor electrolytes - Tube feeds 6) Prophylaxis: - Continue Heparin gtt 7) Dispo: - Transfer to [facility] STATUS: FULL CODE Visit type - Emergency Visit Emergency Visit: Yes ED Registration Date: 08/23/16 Care time: The patient presented to the Emergency Department on the above date and was hospitalized for further evaluation of their emergent condition. - New Patient This patient is new to me today: No - Critical Care Critical Care patient: Yes Total Critical Care Time (in minutes): 55 Critical Care Statement: The care of this patient involved high complexity decision making to prevent further life threatening deterioration of the patient 's condition and/or to evalute & treat vital organ system(s) failure or risk of failure.
--- NOTE | 2016-09-06 13:52 | PN ---
Teaching Attending Note Name of Resident: Alan Glover ATTENDING PHYSICIAN STATEMENT I saw and evaluated the patient. I reviewed the resident's note and discussed the case with the resident. I agree with the resident's findings and plan as documented. SUBJECTIVE: Pt seen and examined in the ICU. Remains intubated, arousable off sedation. Tolerated CPAP/PS 01/11 yesterday. No fevers recorded. OBJECTIVE: Last Vital Signs Temp Pulse Resp BP Pulse Ox 98.6 F 106 H 29 H 124/51 100 09/06/16 10:00 09/06/16 12:00 09/06/16 12:20 09/06/16 12:00 09/06/16 10:00 Intake & Output 09/03/16 09/04/16 09/05/16 09/06/16 23:59 23:59 23:59 23:59 Intake Total 4282.0 1994.8 1330 1612 Output Total 1100 1450 2300 710 Balance 3182.0 544.8 -970 902 Weight 206 lb 211 lb 8 oz 213 lb 2.992 oz 203 lb 14.4 oz Gen: intubated, arousable Heart: tachycardic, regular Lung: scattered rhonchi Abd: soft, nontender Ext: no edema CBC, BMP 09/06/16 06:16 09/06/16 06:16 Active Medications Albuterol Sulfate (Ventolin 0.083% Nebulizer Soln -) 1 amp NEB QIDR [facility] Last Admin: 09/06/16 11:20 Dose: 1 amp Amiodarone HCl (Cordarone -) 200 mg PO DAILY [facility] Last Admin: 09/06/16 10:06 Dose: 200 mg Atorvastatin Calcium (Lipitor -) 20 mg PO HS [facility] Last Admin: 09/05/16 21:32 Dose: 20 mg Bupropion HCl (Wellbutrin Xl -) 150 mg PO DAILY [facility] Last Admin: 09/06/16 13:46 Dose: 150 mg Chlorhexidine Gluconate (Peridex -) 15 ml MM BID [facility] Last Admin: 09/06/16 10:05 Dose: 15 ml Docusate Sodium (Colace Liquid -) 100 mg PO TID [facility] Last Admin: 09/06/16 13:46 Dose: Not Given Duloxetine HCl (Cymbalta -) 60 mg PO DAILY [facility] Last Admin: 09/06/16 10:06 Dose: 60 mg Epoetin Keith (Procrit -) 10,000 unit IVPUSH MoWeFr@10 [facility] Last Admin: 09/06/16 11:49 Dose: 10,000 unit Heparin Sodium (Porcine) (Heparin -) 1,000 unit IVPUSH PRN PRN PRN Reason: Heparin Last Admin: 09/02/16 10:06 Dose: 1,000 unit Heparin Sodium (Porcine) (Heparin -) 5,000 unit IVPUSH PRN PRN PRN Reason: Heparin Pantoprazole Sodium (Protonix 40mg Ivpb (Pre-Docked)) 100 mls @ 200 mls/hr IVPB DAILY [facility] Last Admin: 09/06/16 10:10 Dose: 200 mls/hr Propofol (Diprivan -) 100 mls @ 2.696 mls/hr IVPB TITR LESLEE; 5 MCG/KG/MIN PRN Reason: Protocol Last Admin: 09/06/16 10:57 Dose: Not Given Insulin Aspart (Novolog Vial Sliding Scale -) 1 vial SQ ACHS [facility] PRN Reason: Protocol Last Admin: 09/06/16 11:52 Dose: Not Given Metoprolol Tartrate (Lopressor -) 25 mg PO BID [facility] Last Admin: 09/06/16 10:06 Dose: 25 mg Nystatin (Nystop Powder -) 1 applic TP DAILY [facility] Last Admin: 09/06/16 10:06 Dose: 1 applic Polyethylene Glycol (Miralax (For Daily Use) -) 17 gm PO DAILY [facility] Last Admin: 09/06/16 10:06 Dose: Not Given Prednisone (Deltasone -) 40 mg PO BID [facility] Sodium Chloride ([place] Nasal [place] -) 2 spray NS Q12H PRN PRN Reason: NASAL CONGESTION Tamsulosin HCl (Flomax -) 0.4 mg PO DAILY@0830 [facility] Last Admin: 09/06/16 09:30 Dose: 0.4 mg ASSESSMENT AND PLAN: Acute on Chronic Hypoxic Respiratory Failure Likely Aspiration Pneumonia vs Pneumonitis LV Diastolic Dysfunction Atrial Fibrillation Pleural Effusions COPD h/o DVT/PE CAD HTN Hyperlipidemia - can d/c antibiotics - monitor pigtail drainage - titrate Fio2 to keep SpO2 >90% - taper prednisone - inhaled bronchodilators - continue anticoagulation - monitor urine output, creatinine - minimize sedation to assess mental status - spontaneous breathing trials as tolerated with lower levels of pressure support - enteral feeds - continue ICU monitoring critical care time spent in reviewing chart, evaluating patient and formulating plan 35 min
--- NOTE | 2016-09-06 14:20 | DS ---
Physical Examination Vital Signs: Vital Signs Temperature 98.6 F 09/06/16 14:00 Pulse Rate 117 H 09/06/16 14:00 Respiratory Rate 16 09/06/16 14:00 Blood Pressure 141/77 09/06/16 14:00 O2 Sat by Pulse Oximetry (%) 100 09/06/16 10:00 Labs: CBC, BMP 09/06/16 06:16 09/06/16 06:16 Discharge Summary Reason For Visit: ACUTE-ON CHRONIC RENAL FAILURE,SHORTNESS OF BREATH Current Active Problems Acute and chronic respiratory failure with hypoxia (Acute) Acute kidney injury (Acute) Pneumonia (Acute) Shortness of breath (Acute) Condition: Stable - Instructions Diet, Activity, Other Instructions: The patient is being transferred to [place] intubated and with b/l pigtail catheters. Disposition: TRANSFER ACUTE CARE/OTHER HOSP - Home Medications Comprehensive Discharge Medication List: Ambulatory Orders Bupropion HCl [Bupropion Xl] 150 mg PO DAILY 08/11/16 Docusate Sodium [Colace -] 100 mg PO BID 08/11/16 Duloxetine HCl 60 mg PO DAILY 08/11/16 Epoetin Keith [Epogen] 10,000 unit IM MOWEFR 08/11/16 Nystatin Powder [Nystop Powder -] 60 gm TP DAILY 08/11/16 Polyethylene Glycol 3350 [Miralax 119 gm Btl -] 17 gm PO DAILY 08/11/16 Sodium [place] Nasal [place] [[place] Nasal [place] -] 2 spray NS Q12H PRN 08/23 Tamsulosin HCl [Flomax] 0.4 mg PO DAILY 08/11/16 Acetylcysteine Po/INH 20% [Mucomyst 20 Oral / INH Use Only*] 600 mg NEB QIDR # 120 vial 08/21/16 Atorvastatin Ca [Lipitor] 20 mg PO HS #30 tablet 08/21/16 Metoprolol Tartrate [Lopressor -] 25 mg PO BID #60 tablet 08/21/16 Albuterol 0.083% Nebulizer [place] [Ventolin 0.083% Nebulizer Soln -] 1 amp NEB QIDR amp 08/31/16 Heparin - 25,000 unit IV TITR vial 08/31/16 Insulin Sliding Scale [Novolog Vial Sliding Scale -] 1 vial SQ ACHS units 08/31 Amiodarone HCl [Cordarone -] 200 mg PO DAILY tablet 09/06/16 Chlorhexidine Gluconate [Peridex -] 15 ml MM BID bottle 09/06/16 Heparin - 1,000 unit IVPUSH PRN PRN #0 vial 09/06/16 Heparin - 5,000 unit IVPUSH PRN PRN #0 vial 09/06/16 Pantoprazole Sodium [Protonix 40Mg Ivpb (Pre-Docked)] 100 ml IVPB DAILY bag Prednisone [Deltasone -] 40 mg PO BID tablet 09/06/16 Propofol [Diprivan -] 100 ml IVPB TITR vial 09/06/16
[2016-09-06] MEDS ORDERED: METOPROLOL TARTRATE 5 MG/5 ML VIAL IVPUSH ONE (15:15)
[2016-09-06] MEDS ORDERED: METOPROLOL TARTRATE 5 MG/5 ML VIAL ONE (15:17)
--- NOTE | 2016-09-06 16:25 | PN ---
Progress Note, Physician History of Present Illness: patient continues to be status quo no new events - Current Medication List Current Medications: Active Medications Albuterol Sulfate (Ventolin 0.083% Nebulizer Soln -) 1 amp NEB QIDR [facility] Last Admin: 09/06/16 11:20 Dose: 1 amp Amiodarone HCl (Cordarone -) 200 mg PO DAILY [facility] Last Admin: 09/06/16 10:06 Dose: 200 mg Atorvastatin Calcium (Lipitor -) 20 mg PO HS [facility] Last Admin: 09/05/16 21:32 Dose: 20 mg Bupropion HCl (Wellbutrin Xl -) 150 mg PO DAILY [facility] Last Admin: 09/06/16 13:46 Dose: 150 mg Chlorhexidine Gluconate (Peridex -) 15 ml MM BID [facility] Last Admin: 09/06/16 10:05 Dose: 15 ml Docusate Sodium (Colace Liquid -) 100 mg PO TID [facility] Last Admin: 09/06/16 13:46 Dose: Not Given Duloxetine HCl (Cymbalta -) 60 mg PO DAILY [facility] Last Admin: 09/06/16 10:06 Dose: 60 mg Epoetin Keith (Procrit -) 10,000 unit IVPUSH MoWeFr@10 [facility] Last Admin: 09/06/16 11:49 Dose: 10,000 unit Heparin Sodium (Porcine) (Heparin -) 1,000 unit IVPUSH PRN PRN PRN Reason: Heparin Last Admin: 09/02/16 10:06 Dose: 1,000 unit Heparin Sodium (Porcine) (Heparin -) 5,000 unit IVPUSH PRN PRN PRN Reason: Heparin Pantoprazole Sodium (Protonix 40mg Ivpb (Pre-Docked)) 100 mls @ 200 mls/hr IVPB DAILY [facility] Last Admin: 09/06/16 10:10 Dose: 200 mls/hr Propofol (Diprivan -) 100 mls @ 2.696 mls/hr IVPB TITR LESLEE; 5 MCG/KG/MIN PRN Reason: Protocol Last Titration: 09/06/16 14:15 Dose: 25 mcg/kg/min Insulin Aspart (Novolog Vial Sliding Scale -) 1 vial SQ ACHS [facility] PRN Reason: Protocol Last Admin: 09/06/16 11:52 Dose: Not Given Metoprolol Tartrate (Lopressor -) 25 mg PO BID [facility] Last Admin: 05/31/17 10:06 Dose: 25 mg Nystatin (Nystop Powder -) 1 applic TP DAILY [facility] Last Admin: 09/06/16 10:06 Dose: 1 applic Polyethylene Glycol (Miralax (For Daily Use) -) 17 gm PO DAILY [facility] Last Admin: 09/06/16 10:06 Dose: Not Given Prednisone (Deltasone -) 40 mg PO BID [facility] Sodium Chloride ([place] Nasal [place] -) 2 spray NS Q12H PRN PRN Reason: NASAL CONGESTION Tamsulosin HCl (Flomax -) 0.4 mg PO DAILY@08 [facility] Last Admin: 09/06/16 09:30 Dose: 0.4 mg - Objective Vital Signs: Vital Signs Temperature 98.6 F 09/06/16 14:00 Pulse Rate 128 H 09/06/16 15:20 Respiratory Rate 16 09/06/16 14:20 Blood Pressure 135/71 09/06/16 15:20 O2 Sat by Pulse Oximetry (%) 100 09/06/16 10:00 Constitutional: Yes: Other Cardiovascular: Yes: S1, S2 Respiratory: Yes: Intubated, Mechanically Ventilated, Other (bilateral pig tails ) Gastrointestinal: Yes: Normal Bowel Sounds, Soft Musculoskeletal: Yes: Other Extremities: Yes: Other Neurological: Yes: Other Psychiatric: Yes: Other Labs: CBC, BMP 09/06/16 06:16 09/06/16 06:16 INR, PTT INR 1.22 (0.82-1.09) H 08/27/16 06:00 Assessment/Plan - Problems (1) Acute and chronic respiratory failure with hypoxia Code(s): J96.21 - ACUTE AND CHRONIC RESPIRATORY FAILURE WITH HYPOXIA (2) Pneumonia Code(s): J18.9 - PNEUMONIA, UNSPECIFIED ORGANISM Qualifiers: Pneumonia type: due to unspecified organism Laterality: left Lung location: lower lobe of lung Qualified Code(s): J18.1 - Lobar pneumonia, unspecified organism (3) Pleural effusion Code(s): J90 - PLEURAL EFFUSION, NOT ELSEWHERE CLASSIFIED (4) Acute on chronic diastolic (congestive) heart failure Code(s): I50.33 - ACUTE ON CHRONIC DIASTOLIC (CONGESTIVE) HEART FAILURE (5) COPD (chronic obstructive pulmonary disease) Code(s): J44.9 - CHRONIC OBSTRUCTIVE PULMONARY DISEASE, UNSPECIFIED (6) Renal failure (ARF), acute on chronic Code(s): N17.9 - ACUTE KIDNEY FAILURE, UNSPECIFIED N18.9 - CHRONIC KIDNEY DISEASE, UNSPECIFIED (7) Diabetes Code(s): E11.9 - TYPE 2 DIABETES MELLITUS WITHOUT COMPLICATIONS Qualifiers: Diabetes mellitus type: type 2 Diabetes mellitus complication status: with kidney complications Diabetes mellitus complication detail: with chronic kidney disease (8) Atrial fibrillation Code(s): I48.91 - UNSPECIFIED ATRIAL FIBRILLATION 9 bilateral cellulitis of the legs plan continue to monitor most of the cx reports negative plan is to try to send to [facility] still draiang a lot from the chest tubes rest as per icu cc time 40 min
[2016-09-06 18:48] VITALS: BP 123/69; PULSE 99; TEMP 99.5
[2016-09-06] MEDS ORDERED: predniSONE 20 MG TABLET (UD) PO SCH (22:00)
== END 2016-09-06 19:30 | disposition short-term general hospital (02) | DRG 207 ==
LOC: JER 18:03 → JICU 20:49 → J4W 08-24 16:41 → JICU 08-28 13:40
PROVIDERS: ADMIT Internal Medicine; ATTEND Registered Nurse
PROC: 30233N1 Transfusion of Nonautologous Red Blood Cells into Peripheral Vein, Percutaneous Approach (ICD-10-PCS; principal; 2016-08-26)
PROC: 0W9B30Z Drainage of Left Pleural Cavity with Drainage Device, Percutaneous Approach (ICD-10-PCS; 2016-08-30)
PROC: 0W9B30Z Drainage of Left Pleural Cavity with Drainage Device, Percutaneous Approach (ICD-10-PCS; 2016-08-30)
PROC: 0W9930Z Drainage of Right Pleural Cavity with Drainage Device, Percutaneous Approach (ICD-10-PCS; 2016-08-30)
PROC: 0W9930Z Drainage of Right Pleural Cavity with Drainage Device, Percutaneous Approach (ICD-10-PCS; 2016-08-30)
PROC: 5A1955Z Respiratory Ventilation, Greater than 96 Consecutive Hours (ICD-10-PCS; 2016-09-01)
PROC: 0CHY7BZ Insertion of Airway into Mouth and Throat, Via Natural or Artificial Opening (ICD-10-PCS; 2016-09-01)
PROC: 05HN33Z Insertion of Infusion Device into Left Internal Jugular Vein, Percutaneous Approach (ICD-10-PCS; 2016-09-01)
DX: J15.6 Pneumonia due to other Gram-negative bacteria (principal); J96.21 Acute and chronic respiratory failure with hypoxia; I50.33 Acute on chronic diastolic (congestive) heart failure; R57.0 Cardiogenic shock; J96.22 Acute and chronic respiratory failure with hypercapnia; J90 Pleural effusion, not elsewhere classified; J44.1 Chronic obstructive pulmonary disease with (acute) exacerbation; N17.9 Acute kidney failure, unspecified; I13.0 Hypertensive heart and chronic kidney disease with heart failure and stage 1 through stage 4 chronic kidney disease, or unspecified chronic kidney disease; K92.2 Gastrointestinal hemorrhage, unspecified; L03.116 Cellulitis of left lower limb; E87.0 Hyperosmolality and hypernatremia; L03.115 Cellulitis of right lower limb; D62 Acute posthemorrhagic anemia; T17.890A Other foreign object in other parts of respiratory tract causing asphyxiation, initial encounter; E78.5 Hyperlipidemia, unspecified; I25.10 Atherosclerotic heart disease of native coronary artery without angina pectoris; E86.0 Dehydration; G62.9 Polyneuropathy, unspecified; K21.9 Gastro-esophageal reflux disease without esophagitis; I48.0 Paroxysmal atrial fibrillation; N40.0 Benign prostatic hyperplasia without lower urinary tract symptoms; G47.30 Sleep apnea, unspecified; E66.8 Other obesity; F41.9 Anxiety disorder, unspecified; N18.9 Chronic kidney disease, unspecified; K64.8 Other hemorrhoids; E87.5 Hyperkalemia; E88.09 Other disorders of plasma-protein metabolism, not elsewhere classified; K57.90 Diverticulosis of intestine, part unspecified, without perforation or abscess without bleeding; L89.152 Pressure ulcer of sacral region, stage 2; Z95.5 Presence of coronary angioplasty implant and graft; Z86.718 Personal history of other venous thrombosis and embolism; Z86.711 Personal history of pulmonary embolism; Z87.891 Personal history of nicotine dependence; Z88.0 Allergy status to penicillin; Z99.81 Dependence on supplemental oxygen; Z87.442 Personal history of urinary calculi; Z68.31 Body mass index [BMI] 31.0-31.9, adult; Z71.3 Dietary counseling and surveillance
CPT/HCPCS: 31500; 32557; 36415; 36430; 36511; 36600; 71010-TC; 76098-TC; 76775-TC; 76998-TC; 80048; 80053; 81003; 82042; 82150; 82172; 82247; 82272; 82375; 82436; 82438; 82465; 82550; 82570; 82607; 82728; 82746; 82803; 82945; 82947; 82977; 83010; 83036; 83050; 83516; 83540; 83550; 83605; 83615; 83690; 83735; 83880; 83883; 84100; 84133; 84155; 84157; 84165; 84300; 84311; 84450; 84460; 84478; 84484; 85025; 85027; 85044; 85610; 85730; 86140; 86850; 86900; 86901; 86922; 87040; 87070; 87075; 87086; 87102; 87116; 87205; 87206; 87210; 87899; 88108; 88305-TC; 88341-TC; 89051; 93005; 93010; 94002; 94640; 94660; 99285-25; C1729; C1769; J0885; J1644; P9038; P9058